=== PATIENT | male | born 1950 | race Caucasian/White ===

== ENCOUNTER 2022-04-30 09:13 | Outpatient (CLI) | payer MEDICARE, BC, SELFPAY | END 2022-04-30 09:14 | disposition home or self-care (01) | LOC: AMB 05-05 21:22 | PROVIDERS: PCP Internal Medicine; Visit Provider Family Medicine | DX: R53.1 Weakness (principal) | CPT/HCPCS: A0425; A0429 ==

== ENCOUNTER 2022-04-30 09:39 | Emergency (ER) | payer MEDICARE, BC, SELFPAY ==
[2022-04-30] VITALS (9 sets, daily range): BP systolic 108–149; BP diastolic 54–82; PULSE 97–103; RESP 16–18; TEMP 38.1–38.7; O2SAT 91–97; BMI 30.3
--- NOTE | 2022-04-30 10:15 | ED.WEAKNESS ---
HPI - Weakness General Time Seen by Provider: 10:15 Date Seen: 04/30/22 Chief complaint: Weakness Stated complaint: Weakness Time Seen by Provider: 04/30/22 09:42 Source: patient, family, RN notes reviewed and old records reviewed Mode of arrival: EMS Limitations: no limitations History of Present Illness HPI Narrative: Hola is a very pleasant 71-year-old gentleman with a history of type 2 diabetes, hyperlipidemia who is brought to the emergency room by EMS for weakness. Patient states that the weakness started last evening and he started experiencing a cough with mucus production. He also describes a sinus headache. He notes that last night he was very cold and had some chills. He has had recent exposure to illness and his who had a dry cough which has now resolved. He notes that he has always tested negative for COVID in the past. He has had 2 vaccinations and 1 booster. He denies chest pain or shortness of breath. This morning he was using a walker which he had left over from a back surgery 2-3 years ago because he was feeling weak. Began walking and then felt his knees giving away. He did a very slow slide to the ground and denies any injury from this event. No loss of consciousness, no recent trauma. Patient does report an episode of diarrhea earlier in the week which resolved with Imodium. Related Data Home Medications Medication Instructions Recorded Confirmed allopurinol 300 mg tablet mg 04/30/22 amitriptyline 25 mg tablet mg 04/30/22 labetalol 100 mg tablet mg 04/30/22 levothyroxine 112 mcg tablet mcg 04/30/22 liraglutide 0.6 mg/0.1 mL (18 mg/3 mg subcut 04/30/22 mL) subcutaneous pen injector (Victoza 3-Umesh) lisinopril 20 tab 04/30/22 mg-hydrochlorothiazide 25 mg tablet metformin 1,000 mg tablet mg 04/30/22 simvastatin 20 mg tablet mg 04/30/22 Previous Rx's Medication Instructions Recorded nirmatrelvir 300 mg (150 mg See Rx Instructions PO .COMPLEX 04/30/22 x2)-ritonavir 100 mg tablet,dose #30 ea pack(EUA) (Paxlovid) Allergies Allergy/AdvReac Type Severity Reaction Status Date / Time gabapentin Allergy Mild Verified 04/30/22 09:52 Review of Systems Status of ROS: Reports: 10 or more systems reviewed and unremarkable except as noted in History and below Const: Reports: fever, chills and fatigue Eyes: Denies: change in vision Cardio: Denies: chest pain, palpitations or shortness of breath with exertion Resp: Reports: cough; Denies: shortness of breath GI: Denies: abdominal pain, nausea or vomiting : Denies: painful urination Musculo: Reports: muscle weakness Integ/Breast: Denies: rash Neuro: Reports: headache Endo: Reports: fatigue PFSH PFS Medical History Diabetes Foot drop Gout Hypertension Thyroid cancer Surgical History History of back surgery Social History Smoking Status: Former smoker What tobacco products do you use: cigarettes Smoking packs per day: 1 Smoking cigarettes per day: 20.0 Years smoked: 10 Smoking pack-years: 10.00 Smoking quit date/years: <= 15 years ago Do you use any of these nicotine containing products: None Second hand tobacco smoke exposure: No How often do you have a drink containing alcohol: monthly or less How many standard drinks containing alcohol do you have on a typical day: 3 or 4 How often do you have six or more drinks on one occasion: Never AUDIT-C Alcohol total score: 2 Non-prescribed substance use: denies use service: Yes Exam Const: Vital Signs, click to edit/add: Vital Signs - 24 hr 04/30/22 09:48 04/30/22 10:00 04/30/22 10:30 Temperature 101.6 F H Pulse Rate [Left P ulse Oximeter] 99 103 H 97 Respiratory Rate 16 18 16 Blood Pressure [Le ft Upper Arm] 123/59 L 124/64 128/59 L Pulse Oximetry 93 94 97 Oxygen Delivery Me thod Room Air Room Air Room Air 04/30/22 11:00 04/30/22 12:26 04/30/22 11:30 Temperature 100.6 F H Pulse Rate [Left P ulse Oximeter] 97 Respiratory Rate 16 16 Blood Pressure [Le ft Upper Arm] 126/57 L 137/74 Pulse Oximetry 97 Oxygen Delivery Me thod Room Air Room Air 04/30/22 12:00 04/30/22 13:00 04/30/22 13:30 Temperature Pulse Rate [Left P ulse Oximeter] 97 99 Respiratory Rate 16 16 16 Blood Pressure [Le ft Upper Arm] 149/82 H 108/54 L 122/58 L Pulse Oximetry 94 91 Oxygen Delivery Me thod Room Air Room Air Room Air Documenting provider has reviewed patient's vital signs: yes Common normals: no apparent distress, oriented x3 and no limitations General appearance: cooperative, comfortable, well kempt and other (Fatigued) HENMT: Common normals: head/scalp atraumatic, external ears normal and external nose normal Head and scalp: atraumatic Face and sinus: other (Slight right eyelid droop) Nose: external nose normal External ear: external ears normal Mouth: oral and palatal mucosa normal Eye: General eye: normal appearance of both eyes Neck & C-Spine: Common normals: full ROM, no lymphadenopathy and supple Resp: Common normals: normal respiratory effort and clear to auscultation bilaterally Effort & inspection: able to speak in complete sentences and symmetric chest movement Auscultation: clear to auscultation bilaterally Cardio: Common normals: regular rate and regular rhythm Rate: regular rate Rhythm: regular rhythm GI: Common normals: soft to palpation and non-tender Palpation: soft Extremity: Common normals: normal to inspection General: no edema Neuro: Common normals: oriented x3 Speech: speech normal Psych: Common normals: mental status grossly normal and thought process normal Appearance: well kempt Thought process: normal thought process Skin: Common normals: no rashes or lesions noted General skin exam: no rashes or lesions noted Course Course Hospital Course: At this time differential diagnosis includes but is not limited to sepsis, urinary tract infection, pneumonia, COVID, stroke. After examination patient as febrile but is mentating normally with symmetrical movement. Suggest laboratory values to include a CBC, comprehensive panel, blood culture, D-dimer, urinalysis, CRP and COVID. Will start patient on normal saline and give Tylenol 1 g p.o. Reevaluation(s) Reevaluation #1: Patient appears to be improved and has been eating without difficulty. He is looking improved. COVID has come back positive. Vital Signs Vital signs: Initial Vital Signs Temperature 101.6 F H 04/30/22 09:48 Temperature Source Temporal Artery Scan 08/22/22 09:48 Pulse Rate 99 04/30/22 09:48 Pulse Rhythm 04/30/22 09:48 Pulse Strength 0+ Absent 04/30/22 09:48 Respiratory Rate 16 04/30/22 09:48 Blood Pressure 123/59 L 04/30/22 09:48 Blood Pressure Mean 80 04/30/22 09:48 Blood Pressure Position Supine 04/30/22 09:48 Pulse Oximetry 93 04/30/22 09:48 Oxygen Delivery Method 04/30/22 09:48 Vital Signs Temperature 101.6 F H 04/30/22 09:48 Pulse Rate 99 04/30/22 09:48 Respiratory Rate 16 04/30/22 09:48 Blood Pressure 123/59 L 04/30/22 09:48 Pulse Oximetry 93 04/30/22 09:48 Oxygen Delivery Method 04/30/22 09:48 Temperature 100.6 F H 04/30/22 12:26 Pulse Rate 99 04/30/22 13:30 Respiratory Rate 16 04/30/22 13:30 Blood Pressure 122/58 L 04/30/22 13:30 Pulse Oximetry 91 04/30/22 13:30 Oxygen Delivery Method 04/30/22 13:30 MDM - Weakness MDM Narrative Medical decision making narrative: 1. COVID-patient is on day 2 of symptoms and is in the window for use of Paxilovid. I used the [facility] medication interaction cashier or checker stock clerk to make sure that patient was eligible. He will have to stop his statin at this time. He has not had it since last evening. Therefore he can start Paxilovid his 1st dose tonight. He will continue that with his last dose being the morning of SaturdayMay 05. He can restart his statin on SaturdayMay 07. He is also advised on prone breathing. No evidence of hypoxia at this time. Recommend also quarantine in for at least 5-7 days. My recommendation is 7 days. Return or seek medical attention for worsening symptoms. Note CRP is 1.7 and creatinine is 1.1 on with a normal white count. Patient will also monitor blood pressure as he is on a beta-migue which may have increased efficacy while on Paxilovid. Push fluids as much as possible. 2. Weakness-patient is improved. Patient received a total of 1.5 L normal saline We will get him up to walk to see if he is safe to go home. Nursing tells me that he was able to ambulate without difficulty and therefore will discharge him. 3. Disposition-home with his . Return for worsening symptoms. Medical Records Attestation: I reviewed the patient's medical records. Lab Data Attestation: I reviewed the patient's lab results. Labs: Lab Results 04/30/22 04/30/22 04/30/22 Range/Units 10:25 10:50 10:50 WBC 4.63 (4.50-11.00) K/uL RBC 3.93 L (4.30-5.90) m/uL Hgb 10.9 L (13.5-17.5) gm/dL Hct 33.0 L (37.0-53.0) % MCV 84 (80-100) fL MCH 28 (26-34) pg MCHC 33 (32-36) gm/dL RDW Coeff of Maximino 15.5 (11.5-15.5) % Plt Count 161 (140-440) K/uL Neut % (Auto) 78.1 H (42.0-72.0) % Lymph % (Auto) 8.4 L (20-44) % Prow[place] % (Auto) 11.4 H (0.0-11.0) % Eos % (Auto) 1.5 (0.0-7.0) % Baso % (Auto) 0.4 (0.0-3.0) % Neut # (Auto) 3.60 (1.7-7.0) K/uL Lymph # (Auto) 0.40 L (0.90-2.90) K/uL [place] # (Auto) 0.50 (0.00-0.90) K/UL Eos # (Auto) 0.07 (0.00-0.50) K/uL Baso # (Auto) 0.02 (0.00-0.30) K/uL Abs Immat Gran (auto) 0.01 (0.00-0.30) K/uL D-Dimer Quant (PE/DVT) (0.00-0.50) ug/ml Sodium 135 (135-149) mmol/L Potassium 4.4 (3.6-5.1) mmol/L Chloride 104 (96-114) mmol/L Carbon Dioxide 19 L (20-32) mmol/L BUN 21 (7-30) mg/dL Creatinine 1.1 (0.5-1.5) mg/dL Estimated Creat Clear 59.81 Estimated GFR 71 ml/min Glucose 107 (60-115) mg/dL Lactate (0.5-1.9) mmol/L Calcium 8.7 (8.4-10.6) mg/dL Magnesium 1.5 (1.5-2.6) mg/dL Total Bilirubin 0.4 (0.1-1.5) mg/dL AST 30 (12-35) U/L ALT 12 (4-50) U/L Alkaline Phosphatase 69 (40-150) U/L C-Reactive Protein 1.7 H (0.5-1.0) mg/dL Total Protein 7.3 (6.0-8.3) g/dL Albumin 4.1 (3.3-5.0) g/dL Urine Color Yellow (Yellow) Urine Appearance Clear (Clear) Urine pH 5.0 (5.0-8.5) Ur Specific Beulah 1.020 (1.000-1.030) Urine Protein 2+ A (Negative) Urine Glucose (UA) Negative (Negative) Urine Ketones Negative (Negative) Urine Blood Negative (Negative) Urine Nitrite Negative (Negative) Urine Bilirubin Negative (Negative) Urine Urobilinogen 0.2 (0.2-1.0) Ur Leukocyte Esterase Negative (Negative) Urine RBC 0-2 (0-2) Urine WBC 0-2 (0-5) Ur Squamous Epith Cells Few (None-Few) Urine Bacteria Few A (None) SARS-CoV-2 (PCR) (Negative) Influenza Type A (PCR) (Negative) Influenza Type B (PCR) (Negative) 04/30/22 04/30/22 04/30/22 Range/Units 10:50 10:50 10:50 WBC (4.50-11.00) K/uL RBC (4.30-5.90) m/uL Hgb (13.5-17.5) gm/dL Hct (37.0-53.0) % MCV (80-100) fL MCH (26-34) pg MCHC (32-36) gm/dL RDW Coeff of Maximino (11.5-15.5) % Plt Count (140-440) K/uL Neut % (Auto) (42.0-72.0) % Lymph % (Auto) (20-44) % Prowers % (Auto) (0.0-11.0) % Eos % (Auto) (0.0-7.0) % Baso % (Auto) (0.0-3.0) % Neut # (Auto) (1.7-7.0) K/uL Lymph # (Auto) (0.90-2.90) K/uL [place] # (Auto) (0.00-0.90) K/UL Eos # (Auto) (0.00-0.50) K/uL Baso # (Auto) (0.00-0.30) K/uL Abs Immat Gran (auto) (0.00-0.30) K/uL D-Dimer Quant (PE/DVT) 0.32 (0.00-0.50) ug/ml Sodium (135-149) mmol/L Potassium (3.6-5.1) mmol/L Chloride (96-114) mmol/L Carbon Dioxide (20-32) mmol/L BUN (7-30) mg/dL Creatinine (0.5-1.5) mg/dL Estimated Creat Clear Estimated GFR ml/min Glucose (60-115) mg/dL Lactate 0.9 (0.5-1.9) mmol/L Calcium (8.4-10.6) mg/dL Magnesium (1.5-2.6) mg/dL Total Bilirubin (0.1-1.5) mg/dL AST (12-35) U/L ALT (4-50) U/L Alkaline Phosphatase (40-150) U/L C-Reactive Protein (0.5-1.0) mg/dL Total Protein (6.0-8.3) g/dL Albumin (3.3-5.0) g/dL Urine Color (Yellow) Urine Appearance (Clear) Urine pH (5.0-8.5) Ur Specific [place] (1.000-1.030) Urine Protein (Negative) Urine Glucose (UA) (Negative) Urine Ketones (Negative) Urine Blood (Negative) Urine Nitrite (Negative) Urine Bilirubin (Negative) Urine Urobilinogen (0.2-1.0) Ur Leukocyte Esterase (Negative) Urine RBC (0-2) Urine WBC (0-5) Ur Squamous Epith Cells (None-Few) Urine Bacteria (None) SARS-CoV-2 (PCR) POSITIVE SARS-CoV-2 A (Negative) Influenza Type A (PCR) Negative PCR FLU A (Negative) Influenza Type B (PCR) Negative PCR FLU B (Negative) Imaging Data Chest x-ray: Attestation: I have reviewed the pertinent imaging results. My impression: Chronic lung markings Radiologist's impression: Chronic bilateral fibrosis/bronchitis. No acute infiltrate Discharge Plan Discharge Clinical Impression: COVID, Weakness Patient Disposition: Home w/ Parent or Adult Condition: Improved Additional Instructions: Start Paxlovid today. You will have just 1 dose this afternoon and then will start taking it twice a day tomorrow morning. Your last dose will be on Saturday. During this time do not take her simvastatin. You may restart that on SaturdayMay 07. Monitor your blood pressure to ensure it does not go too low and push fluids. Tylenol or ibuprofen may be used for discomfort and body aches. Seek medical attention for worsening symptoms. Return for shortness of breath and as needed. Breathing exercises are included in your discharge packet. Prescriptions: New Paxlovid (EUA) 300 mg (150 mg x 2)-100 mg tablets,dose pack See Rx Instructions .ROUTE .COMPLEX Qty: 30 0RF Rx Instructions: take TWO 150 mg tablets of nirmatrelvir with ONE 100 mg tablet of ritonavir twice daily for 5 days No Action amitriptyline 25 mg tablet Label Comments: TAKE 1 TABLET BY MOUTH AT BEDTIME simvastatin 20 mg tablet metformin 1,000 mg tablet lisinopril-hydrochlorothiazide 20-25 mg tablet Label Comments: TAKE 1 TABLET BY MOUTH TWICE DAILY allopurinol 300 mg tablet Label Comments: TAKE 1 TABLET BY MOUTH DAILY labetalol 100 mg tablet levothyroxine 112 mcg tablet Victoza 3-Umesh 0.6 mg/0.1 mL (18 mg/3 mL) pen injector SUBCUT Label Comments: ADMINISTER 1.2 MG UNDER THE SKIN EVERY MORNING Follow Up/Referrals: Callie Smalls MD [Primary Care Provider] - Stand Alone Forms: [employer] Info Instructions
--- NOTE | 2022-04-30 10:23 | CRLHL7_ITS ---
For Patients: As a result of the Century Cures Act, medical imaging exams and procedure reports are released immediately into your electronic medical record. You may view this report before your referring provider. If you have questions, please contact your health care provider. INDICATION: COUGH TECHNIQUE: Chest 1 view COMPARISON: 04/24/2019 FINDINGS: Chronic fibrotic changes within the lungs bilaterally likely related to chronic bronchitis. No focal infiltrate. No CHF or pleural effusion. No pneumothorax. Mediastinum similar. Degenerative changes. IMPRESSION: Chronic bilateral fibrosis/chronic bronchitis. No acute infiltrate. Dictated by Kristian Lubin MD @ 04/30/2022 10:48:57 AM (Electronically Signed)
[2022-04-30 10:33] LABS: Appearance Urine Clear (Clear); Bilirubin Urine Negative (Negative); Blood Urine Negative (Negative); Color Urine Yellow (Yellow); Glucose Urine Negative (Negative); Ketones Urine Negative (Negative); Leukocyte Esterase Urine Negative (Negative); Nitrite Urine Negative (Negative); Protein Urine 2+ (Negative); Urobilinogen Urine 0.2 (0.2-1.0)
[2022-04-30 10:45] LABS: Bacteria Urine Few; RBC Urine 0-2 (0-2); Squamous Epithelial Cell Urine Few (None-Few); WBC Urine 0-2 (0-5)
[2022-04-30] MEDS: 0.9 % SODIUM CHLORIDE 500 ML 500 ML IV (11:00)
[2022-04-30 11:01] LABS: Lactate* 0.9 mmol/L (0.5-1.9)
[2022-04-30 11:02] LABS: Basophils Absolute Auto 0.02 K/uL (0.00-0.30); Basophils Percent Auto 0.4 % (0.0-3.0); Eosinophils Absolute Auto 0.07 K/uL (0.00-0.50); Eosinophils Percent Auto 1.5 % (0.0-7.0); Hemoglobin* 10.9 gm/dL (13.5-17.5); Immature Granulocytes Abs Auto 0.01 K/uL (0.00-0.30); Lymphocytes Percent Auto 8.4 % (20-44); Mean Corpuscular HGB Conc 33 gm/dL (32-36); Mean Corpuscular Hemoglobin 28 pg (26-34); Mean Corpuscular Volume 84 fL (80-100); Monocytes Percent Auto 11.4 % (0.0-11.0); Neutrophils Percent Auto 78.1 % (42.0-72.0); Platelet Count* 161 K/uL (140-440); RDW Coefficient of Variation % 15.5 % (11.5-15.5); Red Blood Count 3.93 m/uL (4.30-5.90); White Blood Count* 4.63 K/uL (4.50-11.00)
[2022-04-30 11:03] LABS: Slide Review Reflex No
[2022-04-30 11:17] LABS: Albumin* 4.1 g/dL (3.3-5.0); Chloride* 104 mmol/L (96-114); Sodium* 135 mmol/L (135-149)
[2022-04-30 11:18] LABS: Potassium* 4.4 mmol/L (3.6-5.1)
[2022-04-30 11:20] LABS: Alanine Aminotransferase* 12 U/L (4-50); Alkaline Phosphatase* 69 U/L (40-150); Aspartate Amino Transferase* 30 U/L (12-35); Bilirubin Total* 0.4 mg/dL (0.1-1.5); Blood Urea Nitrogen* 21 mg/dL (7-30); Carbon Dioxide* 19 mmol/L (20-32); Creatinine* 1.1 mg/dL (0.5-1.5); Est. Creatinine Clearance* 59.81; Estimated Glomerular Filt Rate 71 ml/min; Glucose* 107 mg/dL (60-115); Total Protein* 7.3 g/dL (6.0-8.3)
[2022-04-30 11:21] LABS: Calcium* 8.7 mg/dL (8.4-10.6); Magnesium* 1.5 mg/dL (1.5-2.6)
[2022-04-30 11:23] LABS: C Reactive Protein* 1.7 mg/dL (0.5-1.0)
[2022-04-30 11:40] LABS: PCR FLU A Negative PCR FLU A (Negative); PCR FLU B Negative PCR FLU B (Negative)
[2022-04-30 11:41] LABS: SARS PCR* POSITIVE SARS-CoV-2 (Negative)
[2022-04-30] MEDS: ACETAMINOPHEN 500 MG TABLET 1000 MG PO (11:48)
[2022-04-30 12:20] LABS: D Dimer Quantitative* 0.32 ug/ml (0.00-0.50)
[2022-04-30] MEDS: 0.9 % SODIUM CHLORIDE 1000 ml 1,000 ML IV (12:27)
== END 2022-04-30 14:19 | disposition home or self-care (01) ==
PROVIDERS: Emergency Provider Family Medicine; PCP Internal Medicine
DX: U07.1 COVID-19 (principal); E78.5 Hyperlipidemia, unspecified
CPT/HCPCS: 36415; 71045; 80053; 81001; 83605; 83735; 85025; 85379; 86140; 87040; 87086; 87502; 87635; 96360; 96361; 99284; A9270; J7030; J7120

== ENCOUNTER 2022-10-01 08:50 | Outpatient (CLI) | payer MEDICARE, BC, SELFPAY ==
[2022-10-01 10:25] LABS: Creatinine Urine 28.8 mg/dL
[2022-10-01 10:28] LABS: Microalbumin Creatinine Ratio 620 mg/g (0-30); Microalbumin Urine 18 mg/dL
== END 2022-10-01 08:51 | disposition home or self-care (01) ==
LOC: NFLDREF 09:11
PROVIDERS: PCP Internal Medicine; Visit Provider Internal Medicine
DX: E11.42 Type 2 diabetes mellitus with diabetic polyneuropathy (principal)
CPT/HCPCS: 82043; 82570

== ENCOUNTER 2023-02-07 13:00 | Outpatient (RCR) | payer MEDICARE, BC, SELFPAY ==
--- NOTE | 2022-12-28 11:17 | PT.OPEX ---
Please review and sign the attached physical therapy evaluation completed on 12/28/22. Thank you. PT [place] Outpatient Eval PT [facility] Outpatient Eval Start: 12/27/22 15:31 Freq: Status: Active Protocol: Document 12/28/22 07:21 TLQ (Rec: 12/28/22 09:25 TLQ Laptop) E-signed By Ct Nielson DPT Physical Therapy Outpatient Evaluation Insurance Information Recert Due Date 03/28/23 Insurance Name Medicare B,[employer] Medical Diagnosis Age-related physical debility (R54) Other abnormalities of gait and mobility (R26.89) Treating Diagnosis Muscle weakness (M62.81) Unsteady on feet (R26.81) Abnormal gait (R26.9) Pain in left hip (M25.552) Referring MD Smalls Subjective Subjective Presents today with concerns regarding balance. Fell in October 2022 which resulted in him landing on his left hip , has been having left hip pain since, denies any other falls within the past 6 months . Has not had any imaging taken of his left hip after the fall. Hip pain causes difficulty getting out of bed the morning. Is able to move better once he gets up and moving. Had a laminectomy at L1-L4 5-6 years ago, resulted in drop foot on the right side , wears an AFO to assist with gait. Drop foot makes it difficult to go for walks and navigate stairs. Patient lives in a zero entry, one-level [facility], does not have to navigate stairs. Has a 4WW at home that he occasionally uses at home, takes it on his walks outside. Patient reports he is working with Dr. Smalls to get a referral for a new AFO for his right foot/ankle. Original AFO from [facility]. PMHx: T2DM, cancer, stroke ( 2002, right side affected), laminectomy L1-L4 (5-6 years ago) Pain Comments at worst: -04/18 location: posterior L hip quality: zing, occasionally feels like L leg will give out Current Work Status Retired Preferred Name Denzel Objective Other/Pertinent Objective Strength: Hip: flexion L 4-, R 4 extension 4- B (observed with sit to stand) abduction 4+B adduction 4B internal rotation 4+B external rotation 4+B Knee: flexion 4+ B extension L 4, R 4- TTP: L piriformis, L glute max , L3-4 lumbar paraspinals Pain in left hip when transitioning between supine to sit Balance: 5xSTS - 35 seconds, use of both armrests, poor eccentric control last 50% TUG - 26 seconds, use of 4WW, slowest with transitional movements Tandem - L 3 seconds, R 11 seconds 2MWT (mean 150.4 meters): 71.6 meters, use of 4WW Gait: ambulates with use of 4WW outside of home, increased hip /knee flexion on R to compensate for R foot drop Stairs: Not assessed today due to time constraints Safety: Patient sets walker off to side of chair when transitioning to sit from standing, locks brakes prior to transition Assessment Assessment/Impression Denzel is a 72 year old male who presents to physical therapy today with primary concerns of balance during gait, secondary symptoms include left hip pain as a result of a fall in October 2022. Left hip symptoms present primarily during transitional movements when getting in/out of bed, describes as zinging in his hip. Tender with palpation of left piriformis and glute max muscles, tender at L3-4 as well on the left. Patient has history of lumbar laminectomy which resulted in right foot drop, patient wears a right AFO from [facility] to reduce risk of catching his foot during gait. Patient states he is working with his PCP for referral for a new AFO , patient has lost weight since first receiving his AFO, observed to have excess space between upper mold of the brace and the patients leg resulting in minimal ankle control during gait. PT recommending patient continue forward with obtaining orthotic referral. PT able to tighten strap on AFO, patient reported his leg felt more supported when walking after the proximal strap had been tightened. Patient presented to clinic ambulating without A .D., demonstrated slow nataliya and instability with lateral sway. Patient uses 4WW for longer distances, demonstrated increased nataliya and stability when ambulating with clinic 4WW today. Due to foot drop on right, patient displays increased hip and knee flexion during swing phase to compensate for limited ankle dorsiflexion. Completed 2 minute walk test with use of 4WW, results indicating decreased endurance . Functional strength and balance deficits also apparent with 5x sit to stand and timed up and go assessments, slowest with transitional movements. Lower extremity weakness present with strength testing. Based on today's examination findings, patient would greatly benefit from skilled physical therapy to address strength, endurance, and balance for increased efficiency with mobility and decreased risk of falls with ambulation. Primary Functional Limitations left hip pain, muscle weakness , endurance, falls, supine <> sit, sit<>stand, unstable gait without A.D. Plan of Care Physical Therapy Goals In 6 visits: - Patient will demonstrate functional improvements in LE strength by completing 5xSTS in <25 seconds. - Patient will ambulate >85 meters during 2MWT (MDC 12.2 meters) with LRD to demonstrate improved endurance . In 12 visits: - Gross hip strength will improve to 4+/5 to increase efficiency of transitional movements from sit<>stand. - Patient will complete TUG in <13.5 seconds with LRD to decrease risk of falling while navigating his home environment. - Patient will complete 5xSTS in <15 seconds to demonstrates improvements in functional strength during transitions. - Patient will ambulate >100 meters during 2MWT (MDC 12.2 meters) with LRD for increased endurance for safe mobility during his walks. Treatment Plan/Direct Interventions Gait Training,Manual Therapy, Neuromuscular Re-ed,Self-Care/ Home Management,Therapeutic Activities,Therapeutic Exercises Frequency/Duration 2x/week for 4 weeks followed by 1x/week for 4 weeks Patient Will Be Discharged From Therapy Completion of LTG(s),Skills Plateau,Independent w/HEP, Independently Progressing Evaluation Billing Untimed Code Treatment Minutes 45 Complexity Low Certification Information Initial Certification Date 12/28/22 Ending Certification Date 03/28/23 Provider Signature Shows Agreement With POC & Medical Necessity Physician Signature & Date Requested Please Sign/Date Here Physician Comment/Change : Physician NPI Number #
== END 2023-02-22 15:20 | disposition home or self-care (01) ==
PROVIDERS: PCP Internal Medicine; Visit Provider Internal Medicine
DX: R54 Age-related physical debility (principal); R26.89 Other abnormalities of gait and mobility; Z51.89 Encounter for other specified aftercare
CPT/HCPCS: 97110; 97161; 97530

== ENCOUNTER 2023-04-09 09:47 | Outpatient (REF) | payer MEDICARE, BC, SELFPAY ==
[2023-04-09 10:37] LABS: Creatinine* 1.1 mg/dL (0.5-1.5); Estimated Glomerular Filt Rate 70 ml/min
== END 2023-04-09 09:48 | disposition home or self-care (01) ==
LOC: NPINS 09:47
PROVIDERS: PCP Internal Medicine
DX: E11.40 Type 2 diabetes mellitus with diabetic neuropathy, unspecified (principal)
CPT/HCPCS: 82565

== ENCOUNTER 2023-04-22 10:59 | Emergency (ER) | payer MEDICARE, BC, SELFPAY ==
[2023-04-22] VITALS (21 sets, daily range): BP systolic 104–127; BP diastolic 39–72; PULSE 63–98; RESP 16; TEMP 36.2; O2SAT 88–100; BMI 32.9
--- NOTE | 2023-04-22 11:38 | ED.GENADULT ---
HPI - General Adult General Chief complaint: Abdominal Pain Stated complaint: shortness of breath, abdominal pain Time Seen by Provider: 04/22/23 11:37 History of Present Illness HPI narrative: Patient has had nausea/ vomiting starting on Saturday and now having excruciating abdominal pain and associated shortness of breath and tightness with exertion and breathing. Pain is in center of the abdomen and flaring along the right side. 72-year-old man presenting to the emergency department with complaint of severe sharp cramping abdominal pain as he gestures across the mid abdomen but especially on his right side that began after trying to eat a little oatmeal today. This is now the 3rd day of stomach discomfort nausea and vomiting. He tries to eat and then he gets very low abdominal pain. He is having rather hard stools once daily. With this onset of abdominal pain then it seemed to feel like there was subsequently a band across his low chest and a feeling like he was unable to breathe. All of this has resolved now. Spouse notes how he has had these gurgling abdominal circumstances in the past but usually they last half a day and he is better the next day. Vomited 6 times yesterday. Has not had diarrhea is noted. No fever. Does have a history of diabetic neuropathy. Does not have a history of GERD that he knows of. Has not had any abdominal surgeries. No particular exposures. No cough cold symptoms. Quite thirsty. History of treated thyroid cancer. History of anemia of chronic disease Related Data Home Medications Medication Instructions Recorded Confirmed liraglutide 0.6 mg/0.1 mL (18 mg/3 mg subcut 04/30/22 12/25/22 mL) subcutaneous pen injector (kompanytoza 3-Umehs) acetaminophen 500 mg tablet 1,000 mg PO Q6H PRN 07/30/22 12/25/22 amitriptyline 25 mg tablet 25 mg PO QDAY 07/30/22 12/25/22 aspirin 325 mg tablet 325 mg PO BID 07/30/22 12/25/22 ixekizumab 80 mg/mL subcutaneous 80 mg subcut Q4W 07/30/22 12/25/22 syringe levothyroxine 112 mcg tablet 112 mcg PO QDAY 07/30/22 12/25/22 liraglutide 0.6 mg/0.1 mL (18 mg/3 1.2 mg subcut Q24H 07/30/22 12/25/22 mL) subcutaneous pen injector lisinopril 20 1 tab PO BID 07/30/22 12/25/22 mg-hydrochlorothiazide 25 mg tablet metformin 1,000 mg tablet 1,000 mg PO QDAY 07/30/22 12/25/22 multivitamin (Multiple Vitamins 1 tab PO QAM 07/30/22 12/25/22 tablet) probenecid 500 mg-colchicine 0.5 1 tab PO BID PRN 07/30/22 12/25/22 mg tablet simvastatin 20 mg tablet 20 mg PO QDAY 07/30/22 12/25/22 empagliflozin 10 mg tablet 10 mg PO QAM 10/09/22 12/25/22 (Jardiance) Previous Rx's Medication Instructions Recorded allopurinol 300 mg tablet 300 mg PO QDAY #90 tabs 12/25/22 labetalol 100 mg tablet 150 mg (1.5 x 100 mg) PO BID #135 04/12/23 tabs Allergies Allergy/AdvReac Type Severity Reaction Status Date / Time gabapentin Allergy Mild Verified 04/22/23 12:49 Review of Systems Status of ROS: Reports: 6 or more systems reviewed and unremarkable except as noted in History and below [facility] Medical History History of thyroid cancer ?Z85.850 - Personal history of malignant neoplasm of thyroid (ICD-10) History of depression ?Z86.59 - Personal history of other mental and behavioral disorders (ICD-10) 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) ?Z86.69 - Personal history of other diseases of the nervous system and sense organs (ICD-10) Surgical History History of cataract surgery ?Z98.49 - Cataract extraction status, unspecified eye (ICD-10) Penile adhesions ?N47.5 - Adhesions of prepuce and glans penis (ICD-10) Non-melanoma skin cancer (2017) ?C44.90 - Unspecified malignant neoplasm of skin, unspecified (ICD-10) History of repair of rotator cuff (2001) ?Z98.890 - Other specified postprocedural states (ICD-10) History of lumbar laminectomy (02/14/20) ?Z98.890 - Other specified postprocedural states (ICD-10) History of carpal tunnel release of both wrists ?Z98.890 - Other specified postprocedural states (ICD-10) History of back surgery ?Z98.890 - Other specified postprocedural states (ICD-10) Family History Other Abdominal aortic aneurysm Social History Smoking Status: Former smoker What tobacco products do you use: cigarettes Smoking packs per day: 1 Smoking cigarettes per day: 20.0 Years smoked: 10 Smoking pack-years: 10.00 Smoking quit date/years: <= 15 years ago Do you use any of these nicotine containing products: None Second hand tobacco smoke exposure: No How often do you have a drink containing alcohol: monthly or less How many standard drinks containing alcohol do you have on a typical day: 3 or 4 How often do you have six or more drinks on one occasion: Never AUDIT-C Alcohol total score: 2 Non-prescribed substance use: denies use Little interest or pleasure in doing things: not at all Feeling down, depressed, or hopeless: not at all service: Yes Exam Narrative: Exam Narrative: Pleasant. Seems a little uncomfortable but conversing easily. Facial tremor. Breathing easily. Demonstrates just a little discomfort perhaps with deep inspiratory effort. Neck is supple without lymphadenopathy. Oropharynx is sticky without erythema. Is moving all extremities without difficulty. He is well perfused and without edema in the lower extremities. Lungs appear to be clear. Heart is in a regular rate and rhythm. It is distant. Abdomen is full maybe a little distended. Soft. Tympanitic in the left mid abdomen. He is most sore in the right mid abdomen and below into the right lower quadrant to palpation. No peritoneal signs. But quite tender in that right mid and low side. Const: Vital Signs, click to edit/add: Vital Signs - 24 hr 04/22/23 17:10 Temperature 97.2 F L Pulse Rate [Right Pulse Oximeter] 77 Respiratory Rate 16 Blood Pressure [Ri ght Upper Arm] 110/48 L Pulse Oximetry 96 Oxygen Delivery Me thod Room Air Documenting provider has reviewed patient's vital signs: yes Course Vital Signs Vital signs: Initial Vital Signs Temperature 97.1 F L 04/22/23 11:17 Temperature Source Temporal Artery Scan 04/22/23 11:17 Pulse Rate 73 04/22/23 11:17 Pulse Rhythm Regular 04/22/23 11:17 Respiratory Rate 16 04/22/23 11:17 Blood Pressure 127/72 04/22/23 11:17 Blood Pressure Mean 90 04/22/23 11:17 Blood Pressure Position Sitting 04/22/23 11:17 Pulse Oximetry 100 04/22/23 11:17 Oxygen Delivery Method Room Air 04/22/23 11:17 Vital Signs Temperature 97.1 F L 04/22/23 11:17 Pulse Rate 73 04/22/23 11:17 Respiratory Rate 16 04/22/23 11:17 Blood Pressure 127/72 04/22/23 11:17 Pulse Oximetry 100 04/22/23 11:17 Oxygen Delivery Method Room Air 04/22/23 11:17 Temperature 97.2 F L 04/22/23 17:10 Pulse Rate 77 04/22/23 17:10 Respiratory Rate 16 04/22/23 17:10 Blood Pressure 110/48 L 04/22/23 17:10 Pulse Oximetry 96 04/22/23 17:10 Oxygen Delivery Method Room Air 04/22/23 17:10 Medical Decision Making MDM Narrative Medical decision making narrative: My initial impression is that he is having gastrointestinal colic possibly gas pain possibly exacerbated in the setting of neuropathy. Etiology likely a stomach bug. He does have hard stools though this seems different than constipation. I suppose appendicitis is a possibility but unusual presentation as well. Differential does include vascular disruption, bowel obstruction, biliary disease. I think the chest discomfort was more related to what ever is going on in his abdomen and unlikely to be cardiac. Will evaluate cardiac as well. Chest 1 view COMPARISON: 04/24/2019 FINDINGS: Chronic fibrotic changes within the lungs bilaterally likely related to chronic bronchitis. No focal infiltrate. No CHF or pleural effusion. No pneumothorax. Mediastinum similar. Degenerative changes. IMPRESSION: Chronic bilateral fibrosis/chronic bronchitis. No acute infiltrate. CT examination of the abdomen and pelvis was performed following the uneventful intravenous administration of 109 cc of Isovue 370. Thin section axial images were obtained from the lung bases through the pubic symphysis. Oral contrast was not administered. Please note that all CT scans at this facility use dose modulation, iterative reconstruction, and/or weight-based dosing when appropriate to reduce radiation dose to as low as reasonably achievable. FINDINGS: LUNG BASES: Significant reticular basilar lung abnormality likely due to interstitial fibrosis. Based on the appearance of the lung bases, this appears to be a significant volume of fibrosing interstitial lung disease.Heart size top-normal at the lung bases. Atherosclerotic vascular and valvular calcification LIVER/BILIARY SYSTEM:Liver normal in size. Hepatic steatosis. The gallbladder is distended and located in the patient`s right flank. There is either wall thickening and/or pericholecystic fluid but no visible stones. Suspected acute cholecystitis. Correlate with sonography. ADRENALS: Normal KIDNEYS, URETERS and BLADDER:Kidneys appear normal. The bladder is distended. Moderately enlarged prostate. SPLEEN:Small subcapsular fluid collection associated with the superior and lateral aspect of the spleen. This is best seen on axial image 30 and measures about 12 millimeters in depth and about 4 centimeters in length PANCREAS: Appears normal. RETROPERITONEUM and MESENTERY: Unusual thickening of the 3rd portion of the duodenum and regional lymphadenopathy. This is probably not related to the gallbladder and could be malignant. Appropriate follow up is advised. GASTROINTESTINAL SYSTEM: There is no evidence of diverticulitis, colitis, mechanical obstruction, or appendicitis. The small bowel as visualized appears normal.Abnormal 3rd portion the duodenum as mentioned above. Elsewhere, diverticulosis and fecal retention without acute appearing finding. PELVIS: Distended bladder and abnormal prostate. OSSEOUS STRUCTURES and ABDOMINAL WALL: Degenerative and postsurgical changes. No acute osseous finding. No significant abdominal wall finding OTHER: No free fluid or free air. IMPRESSION: 1. Abnormal appearing gallbladder suspect acute cholecystitis. Correlate with sonography. 2. Abnormal 3rd portion of the duodenum. It is thickened and nodular in appearance with regional lymphadenopathy. This could be inflammatory or malignant. Follow-up evaluation recommended at a clinically appropriate time. 3. Small subcapsular fluid collection associated with the spleen probably not acute. No evidence of splenic laceration. 4. The lung bases as visualized show findings of significant fibrosis or interstitial lung disease appearance 5. Other nonacute appearing findings as above TECHNIQUE: Ultrasound abdomen limited. Sonographic images of the right upper quadrant were obtained using monroe-scale and color Doppler images. COMPARISON: Today`s CT of the abdomen and pelvis. FINDINGS: Liver: Normal in size and echotexture. No masses. No intrahepatic biliary dilatation. Gallbladder: No evidence of gallstones. Adherent hypoechoic debris is noted within a Phrygian cap consistent with gallbladder sludge. Nonspecific mild diffuse gallbladder wall thickening and small volume pericholecystic fluid. Negative sonographic Brooks`s sign. Common bile duct: 5 mm. IMPRESSION: Nonspecific mild diffuse gallbladder wall thickening and small volume pericholecystic fluid. Negative sonographic Brooks`s sign. No gallstones. No biliary ductal dilatation. In the correct clinical setting, imaging findings are consistent with acute acalculous cholecystitis. Clinical correlation and subspecialty surgical consultation are recommended. Did receive IV hydration in the emergency department along with Zofran. Able to tolerate oral intake, at least liquids. Did cause some discomfort in the epigastrium as he gestures but apparently tolerable. I did speak with our general surgeon on-call recommending setting up for upper GI without small-bowel follow-through. Need to evaluate the duodenum. Next step might be endoscopic ultrasound which would be unable to do here. Does not seem to have clinical evidence aside from some findings on the ultrasound, is absent of reproducible pain, with a normal white count, normal transaminases, of acute cholecystitis. If normal upper GI, then possibly an endoscopic ultrasound. Placed order for upper GI for outpatient. See patient discharge plan Lab Data Lab results reviewed: Yes I reviewed the patient's lab results Labs: Lab Results 04/22/23 04/22/23 04/22/23 Range/Units 11:36 11:52 13:10 WBC 9.21 (4.50-11.00) K/uL RBC 4.31 (4.30-5.90) m/uL Hgb 10.3 L (13.5-17.5) gm/dL Hct 34.0 L (37.0-53.0) % MCV 79 L (80-100) fL MCH 24 L (26-34) pg MCHC 30 L (32-36) gm/dL RDW Coeff of Maximino 16.7 H (11.5-15.5) % Plt Count 288 (140-440) K/uL Neut % (Auto) 79.9 H (42.0-72.0) % Lymph % (Auto) 9.7 L (20-44) % [place] % (Auto) 6.8 (0.0-11.0) % Eos % (Auto) 2.8 (0.0-7.0) % Baso % (Auto) 0.7 (0.0-3.0) % Neut # (Auto) 7.40 H (1.7-7.0) K/uL Lymph # (Auto) 0.90 (0.90-2.90) K/uL [place] # (Auto) 0.60 (0.00-0.90) K/UL Eos # (Auto) 0.26 (0.00-0.50) K/uL Baso # (Auto) 0.06 (0.00-0.30) K/uL Abs Immat Gran (auto) 0.01 (0.00-0.30) K/uL Imm/Tot Granulo (auto) 0.1 % Total Bilirubin 0.4 (0.1-1.5) mg/dL Direct Bilirubin 0.1 (0.0-0.5) mg/dL AST 33 (12-35) U/L ALT 19 (4-50) U/L Alkaline Phosphatase 79 (40-150) U/L Troponin I < 0.01 L (0.01-0.04) ng/mL C-Reactive Protein 1.8 H (0.5-1.0) mg/dL NT-Pro-B Natriuret Pep 741 pg/mL Total Protein 7.6 (6.0-8.3) g/dL Albumin 4.3 (3.3-5.0) g/dL Lipase 51 (23-300) U/L Urine Color Yellow (Yellow) Urine Appearance Clear (Clear) Urine pH 5.5 (5.0-8.5) Ur Specific [place] 1.015 (1.000-1.030) Urine Protein 1+ A (Negative) Urine Glucose (UA) 2+ A (Negative) Urine Ketones Negative (Negative) Urine Blood Negative (Negative) Urine Nitrite Negative (Negative) Urine Bilirubin Negative (Negative) Urine Urobilinogen 0.2 (0.2-1.0) Ur Leukocyte Esterase Negative (Negative) Urine RBC 0-2 (0-2) Urine WBC 0-2 (0-5) Ur Squamous Epith Cells Moderate A (None-Few) Urine Bacteria None (None) Fine Granular Casts Few A (None) POC Troponin I 0.00 L (0.01-0.04) ng/ml ECG Data Attestation: I personally reviewed and interpreted this ECG as follows: (Normal sinus rhythm rate of 75. No acute ischemic changes.) Discharge Plan Discharge Clinical Impression: Abdominal pain, Duodenal anomaly Patient Disposition: Home w/ Parent or Adult Condition: Improved Additional Instructions: Focus on hydration. More liquid food than solid. Yes, soups are good place to start. Small frequent amounts. Expect a call from radiology to schedule this upper GI. I would also call tomorrow to your primary care provider to get an appointment to review results and next steps in evaluation. Return for intractable vomiting or uncontrolled pain, fever. Zofran from [employer]. Prescriptions: No Action acetaminophen 500 mg tablet 1,000 mg PO Q6H PRN Rx Instructions: NO MORE THAN 4000 MG/DAY liraglutide 0.6 mg/0.1 mL (18 mg/3 mL) pen injector 1.2 mg subcut Q24H ixekizumab 80 mg/mL syringe 80 mg subcut Q4W aspirin 325 mg tablet 325 mg PO BID multivitamin [Multiple Vitamins] Tablet 1 tab PO QAM probenecid-colchicine 500-0.5 mg tablet 1 tab PO BID PRN Rx Instructions: use as needed for a gout flare allopurinol 300 mg tablet 300 mg PO QDAY Qty: 90 3RF Victoza 3-Umesh 0.6 mg/0.1 mL (18 mg/3 mL) pen injector SUBCUT Patient Comments: ADMINISTER 1.2 MG UNDER THE SKIN EVERY MORNING amitriptyline 25 mg tablet 25 mg PO QDAY Patient Comments: TAKE 1 TABLET BY MOUTH AT BEDTIME levothyroxine 112 mcg tablet 112 mcg PO QDAY Rx Instructions: 1 Tab Sat, , and 2 Tabs other days lisinopril-hydrochlorothiazide 20-25 mg tablet 1 tab PO BID Patient Comments: TAKE 1 TABLET BY MOUTH TWICE DAILY metformin 1,000 mg tablet 1,000 mg PO QDAY simvastatin 20 mg tablet 20 mg PO QDAY Jardiance 10 mg tablet 10 mg PO QAM labetalol 100 mg tablet 150 mg PO BID Qty: 135 0RF Follow Up/Referrals: Callie Smalls MD [Primary Care Provider] - Stand Alone Forms: [employer] Info Instructions
--- NOTE | 2023-04-22 11:52 | CRLHL7_ITS ---
For Patients: As a result of the 21st Century Cures Act, medical imaging exams and procedure reports are released immediately into your electronic medical record. You may view this report before your referring provider. If you have questions, please contact your health care provider. INDICATION: Right lower quadrant pain COMPARISON: None TECHNIQUE: CT examination of the abdomen and pelvis was performed following the uneventful intravenous administration of 109 cc of Isovue 370. Thin section axial images were obtained from the lung bases through the pubic symphysis. Oral contrast was not administered. Please note that all CT scans at this facility use dose modulation, iterative reconstruction, and/or weight-based dosing when appropriate to reduce radiation dose to as low as reasonably achievable. FINDINGS: LUNG BASES: Significant reticular basilar lung abnormality likely due to interstitial fibrosis. Based on the appearance of the lung bases, this appears to be a significant volume of fibrosing interstitial lung disease.Heart size top-normal at the lung bases. Atherosclerotic vascular and valvular calcification LIVER/BILIARY SYSTEM:Liver normal in size. Hepatic steatosis. The gallbladder is distended and located in the patient`s right flank. There is either wall thickening and/or pericholecystic fluid but no visible stones. Suspected acute cholecystitis. Correlate with sonography. ADRENALS: Normal KIDNEYS, URETERS and BLADDER:Kidneys appear normal. The bladder is distended. Moderately enlarged prostate. SPLEEN:Small subcapsular fluid collection associated with the superior and lateral aspect of the spleen. This is best seen on axial image 30 and measures about 12 millimeters in depth and about 4 centimeters in length PANCREAS: Appears normal. RETROPERITONEUM and MESENTERY: Unusual thickening of the 3rd portion of the duodenum and regional lymphadenopathy. This is probably not related to the gallbladder and could be malignant. Appropriate follow up is advised. GASTROINTESTINAL SYSTEM: There is no evidence of diverticulitis, colitis, mechanical obstruction, or appendicitis. The small bowel as visualized appears normal.Abnormal 3rd portion the duodenum as mentioned above. Elsewhere, diverticulosis and fecal retention without acute appearing finding. PELVIS: Distended bladder and abnormal prostate. OSSEOUS STRUCTURES and ABDOMINAL WALL: Degenerative and postsurgical changes. No acute osseous finding. No significant abdominal wall finding OTHER: No free fluid or free air. IMPRESSION: 1. Abnormal appearing gallbladder suspect acute cholecystitis. Correlate with sonography. 2. Abnormal 3rd portion of the duodenum. It is thickened and nodular in appearance with regional lymphadenopathy. This could be inflammatory or malignant. Follow-up evaluation recommended at a clinically appropriate time. 3. Small subcapsular fluid collection associated with the spleen probably not acute. No evidence of splenic laceration. 4. The lung bases as visualized show findings of significant fibrosis or interstitial lung disease appearance 5. Other nonacute appearing findings as above Please note that all CT scans at this facility use dose modulation, iterative reconstruction, and/or weight-based dosing when appropriate to reduce radiation dose to as low as reasonably achievable. Dictated by Omar Anderson MD @ 04/22/2023 2:03:36 PM (Electronically Signed)
[2023-04-22] MEDS: ONDANSETRON 2 MG/ML inj 4 MG IVP (12:06)
[2023-04-22] MEDS: 0.9 % SODIUM CHLORIDE 1000 ml 1,000 ML IV (12:06)
[2023-04-22 12:07] LABS: Basophils Absolute Auto 0.06 K/uL (0.00-0.30); Basophils Percent Auto 0.7 % (0.0-3.0); Eosinophils Absolute Auto 0.26 K/uL (0.00-0.50); Eosinophils Percent Auto 2.8 % (0.0-7.0); Hemoglobin* 10.3 gm/dL (13.5-17.5); Immature Granulocytes Abs Auto 0.01 K/uL (0.00-0.30); Immature Granulocytes Pct Auto 0.1 %; Lymphocytes Percent Auto 9.7 % (20-44); Mean Corpuscular HGB Conc 30 gm/dL (32-36); Mean Corpuscular Hemoglobin 24 pg (26-34); Mean Corpuscular Volume 79 fL (80-100); Monocytes Percent Auto 6.8 % (0.0-11.0); Neutrophils Percent Auto 79.9 % (42.0-72.0); Platelet Count* 288 K/uL (140-440); RDW Coefficient of Variation % 16.7 % (11.5-15.5); Red Blood Count 4.31 m/uL (4.30-5.90); White Blood Count* 9.21 K/uL (4.50-11.00)
[2023-04-22 12:12] LABS: Slide Review Reflex No
[2023-04-22 12:19] LABS: Albumin* 4.3 g/dL (3.3-5.0)
[2023-04-22 12:22] LABS: Bilirubin Direct* 0.1 mg/dL (0.0-0.5); Bilirubin Total* 0.4 mg/dL (0.1-1.5)
[2023-04-22 12:23] LABS: Alanine Aminotransferase* 19 U/L (4-50); Alkaline Phosphatase* 79 U/L (40-150); Aspartate Amino Transferase* 33 U/L (12-35); Lipase* 51 U/L (23-300); Total Protein* 7.6 g/dL (6.0-8.3)
[2023-04-22 12:26] LABS: C Reactive Protein* 1.8 mg/dL (0.5-1.0)
[2023-04-22 12:37] LABS: NT Pro B Type NatriureticPept* 741 pg/mL; Troponin I* < 0.01 ng/mL (0.01-0.04)
[2023-04-22 13:18] LABS: Appearance Urine Clear (Clear); Bilirubin Urine Negative (Negative); Blood Urine Negative (Negative); Color Urine Yellow (Yellow); Glucose Urine 2+ (Negative); Ketones Urine Negative (Negative); Leukocyte Esterase Urine Negative (Negative); Nitrite Urine Negative (Negative); Protein Urine 1+ (Negative); Specific Gravity Urine 1.015 (1.000-1.030); Urobilinogen Urine 0.2 (0.2-1.0); pH Urine 5.5 (5.0-8.5)
[2023-04-22 13:30] LABS: RBC Urine 0-2 (0-2); Squamous Epithelial Cell Urine Moderate (None-Few); WBC Urine 0-2 (0-5)
[2023-04-22 13:31] LABS: Fine Granular Casts Urine Few
--- NOTE | 2023-04-22 14:09 | US_ITS ---
Final Report Patient: TORRI INGRAM Facility:?[facility] Patient ID:?[id number] Site Patient ID:?[id number]. Site :?[id number] Study:?US Abdomen -04/22/2023 2:52:43 PM Ordering Physician:Bogdan Townsend Final Report: INDICATION: Abnormal CT of the abdomen. From the abdominal CT report ?The gallbladder is distended and located in the patient`s right flank. There is either wall thickening and/or pericholecystic fluid but no visible stones. Suspected acute cholecystitis. Correlate with sonography.? Indication for the CT was as follows: Right lower quadrant pain. TECHNIQUE: Ultrasound abdomen limited. Sonographic images of the right upper quadrant were obtained using monroe-scale and color Doppler images. COMPARISON: Today`s CT of the abdomen and pelvis. FINDINGS: Liver: Normal in size and echotexture. No masses. No intrahepatic biliary dilatation. Gallbladder: No evidence of gallstones. Adherent hypoechoic debris is noted within a Phrygian cap consistent with gallbladder sludge. Nonspecific mild diffuse gallbladder wall thickening and small volume pericholecystic fluid. Negative sonographic Brooks`s sign. Common bile duct: 5 mm. IMPRESSION: Nonspecific mild diffuse gallbladder wall thickening and small volume pericholecystic fluid. Negative sonographic Brooks`s sign. No gallstones. No biliary ductal dilatation. In the correct clinical setting, imaging findings are consistent with acute acalculous cholecystitis. Clinical correlation and subspecialty surgical consultation are recommended. Dictated by Sterling Howard MD @ 04/22/2023 3:50:49 PM (Electronic Signature)
== END 2023-04-22 17:11 | disposition home or self-care (01) ==
PROVIDERS: Emergency Provider Family Medicine; PCP Internal Medicine
DX: R10.9 Unspecified abdominal pain (principal); D13.2 Benign neoplasm of duodenum
CPT/HCPCS: 36415; 74177; 76705; 80076; 81001; 83690; 83880; 84484; 85025; 86140; 93005; 96374; 99284; 99285; J2405; J7030; Q9967

== ENCOUNTER 2023-04-23 15:43 | Outpatient (CLI) | payer MEDICARE, BC, SELFPAY | END 2023-04-23 15:44 | disposition home or self-care (01) | LOC: AMB 04-25 11:28 | PROVIDERS: PCP Internal Medicine; Visit Provider Emergency Medicine | DX: R53.1 Weakness (principal); R50.9 Fever, unspecified | CPT/HCPCS: A0425; A0427 ==

== ENCOUNTER 2023-04-23 16:10 | Emergency (ER) | payer MEDICARE, BC, SELFPAY ==
[2023-04-23] VITALS (53 sets, daily range): BP systolic 92–120; BP diastolic 43–60; PULSE 83–123; RESP 18–20; TEMP 36.1–38.7; O2SAT 87–98; BMI 35.5
--- NOTE | 2023-04-23 16:35 | ED.GENADULT ---
HPI - General Adult General Chief complaint: Fever Stated complaint: Fever Time Seen by Provider: 04/23/23 16:15 History of Present Illness HPI narrative: Patient here for large workup yesterday with gallbladder. Now has fever and unable to get up, weakness. IV started by EMS, 500 cc NS bolus given en route 72-year-old man presenting to the emergency department with concern of weakness or rubbery legs. Spouse notes he has had episodes of weakness in the past but today measured a temperature of 102? initially and then improved to 101. He does arrive febrile of 101.6. Was evaluated by myself after 3 days of intermittent abdominal pain exacerbated by oral ingestion as well as hard stool/constipation, in this emergency department yesterday with extensive workup including chest x-ray, CT abdomen pelvis and ultrasound limited of the abdomen. Had a rather large/distended gallbladder that was not particularly inflamed but there was some wall thickening and sludge, nor was he terribly tender in this location. Clinically did not really seem to have cholecystitis. Labs were reassuring. Did have thickening of the duodenum with some regional lymphadenopathy of unclear significance and was able to tolerate liquids discharged home to outpatient follow-up. Constipation continues. Last bowel movement was a couple of days ago. He has not had worsening abdominal pain. He is not nauseated. He is tolerating oral intake. This fever in particular is a new symptom. No respiratory symptoms. Urine is little hesitant he says. Related Data Home Medications Medication Instructions Recorded Confirmed liraglutide 0.6 mg/0.1 mL (18 mg/3 mg subcut 04/30/22 12/25/22 mL) subcutaneous pen injector ([employer]) acetaminophen 500 mg tablet 1,000 mg PO Q6H PRN 07/30/22 12/25/22 amitriptyline 25 mg tablet 25 mg PO QDAY 07/30/22 12/25/22 aspirin 325 mg tablet 325 mg PO BID 07/30/22 12/25/22 ixekizumab 80 mg/mL subcutaneous 80 mg subcut Q4W 07/30/22 12/25/22 syringe levothyroxine 112 mcg tablet 112 mcg PO QDAY 07/30/22 12/25/22 liraglutide 0.6 mg/0.1 mL (18 mg/3 1.2 mg subcut Q24H 07/30/22 12/25/22 mL) subcutaneous pen injector lisinopril 20 1 tab PO BID 07/30/22 12/25/22 mg-hydrochlorothiazide 25 mg tablet metformin 1,000 mg tablet 1,000 mg PO QDAY 07/30/22 12/25/22 multivitamin (Multiple Vitamins 1 tab PO QAM 07/30/22 12/25/22 tablet) probenecid 500 mg-colchicine 0.5 1 tab PO BID PRN 07/30/22 12/25/22 mg tablet simvastatin 20 mg tablet 20 mg PO QDAY 07/30/22 12/25/22 empagliflozin 10 mg tablet 10 mg PO QAM 10/09/22 12/25/22 (Jardiance) Previous Rx's Medication Instructions Recorded allopurinol 300 mg tablet 300 mg PO QDAY #90 tabs 12/25/22 labetalol 100 mg tablet 150 mg (1.5 x 100 mg) PO BID #135 04/12/23 tabs Allergies Allergy/AdvReac Type Severity Reaction Status Date / Time gabapentin Allergy Mild Verified 04/22/23 12:49 Review of Systems Status of ROS: Reports: 6 or more systems reviewed and unremarkable except as noted in History and below [facility] Medical History History of thyroid cancer ?Z85.850 - Personal history of malignant neoplasm of thyroid (ICD-10) History of depression ?Z86.59 - Personal history of other mental and behavioral disorders (ICD-10) 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) ?Z86.69 - Personal history of other diseases of the nervous system and sense organs (ICD-10) Surgical History History of cataract surgery ?Z98.49 - Cataract extraction status, unspecified eye (ICD-10) Penile adhesions ?N47.5 - Adhesions of prepuce and glans penis (ICD-10) Non-melanoma skin cancer (2017) ?C44.90 - Unspecified malignant neoplasm of skin, unspecified (ICD-10) History of repair of rotator cuff (2001) ?Z98.890 - Other specified postprocedural states (ICD-10) History of lumbar laminectomy (10/23/19) ?Z98.890 - Other specified postprocedural states (ICD-10) History of carpal tunnel release of both wrists ?Z98.890 - Other specified postprocedural states (ICD-10) History of back surgery ?Z98.890 - Other specified postprocedural states (ICD-10) Family History Other Abdominal aortic aneurysm Social History Smoking Status: Former smoker What tobacco products do you use: cigarettes Smoking packs per day: 1 Smoking cigarettes per day: 20.0 Years smoked: 10 Smoking pack-years: 10.00 Smoking quit date/years: <= 15 years ago Do you use any of these nicotine containing products: None Second hand tobacco smoke exposure: No How often do you have a drink containing alcohol: monthly or less How many standard drinks containing alcohol do you have on a typical day: 3 or 4 How often do you have six or more drinks on one occasion: Never AUDIT-C Alcohol total score: 2 Non-prescribed substance use: denies use Little interest or pleasure in doing things: not at all Feeling down, depressed, or hopeless: not at all service: Yes Exam Narrative: Exam Narrative: Pleasant. NAD. Similar oral tremor as yesterday. Breathing easily. Lungs appear to be clear. Heart is in an elevated rate but regular rhythm. Skin is generally quite warm. Is well perfused peripherally without peripheral edema. Abdomen is soft with bowel sounds present. There there is a little tension to palpation generally throughout the abdomen but does not appear to be otherwise in pain. I perceived maybe a little more discomfort in the epigastrium. No masses. Oropharynx is moist. Const: Vital Signs, click to edit/add: Vital Signs - 24 hr 04/23/23 16:28 04/23/23 17:50 04/23/23 18:02 Temperature 101.6 F H 98.9 F Pulse Rate 95 Pulse Rate [Right Pulse Oximeter] 94 Respiratory Rate 18 Blood Pressure 112/43 L Blood Pressure [Ri ght Upper Arm] 120/54 L Pulse Oximetry 93 91 Oxygen Delivery Me thod Room Air 04/23/23 18:03 04/23/23 18:15 04/23/23 18:17 Temperature Pulse Rate 92 111 H 101 H Pulse Rate [Right Pulse Oximeter] Respiratory Rate Blood Pressure 106/56 L Blood Pressure [Ri ght Upper Arm] Pulse Oximetry 93 89 96 Oxygen Delivery Me thod 04/23/23 18:18 04/23/23 18:31 04/23/23 18:32 Temperature Pulse Rate 101 H 96 96 Pulse Rate [Right Pulse Oximeter] Respiratory Rate Blood Pressure 95/45 L Blood Pressure [Ri ght Upper Arm] Pulse Oximetry 95 89 91 Oxygen Delivery Me thod 04/23/23 18:35 04/23/23 18:36 04/23/23 18:37 Temperature 100.1 F H Pulse Rate 94 94 Pulse Rate [Right Pulse Oximeter] Respiratory Rate Blood Pressure 101/56 L Blood Pressure [Ri ght Upper Arm] Pulse Oximetry 95 91 Oxygen Delivery Me thod 04/23/23 18:38 04/23/23 18:45 04/23/23 18:46 Temperature 100.1 F H Pulse Rate 95 93 Pulse Rate [Right Pulse Oximeter] Respiratory Rate 20 Blood Pressure 108/59 L Blood Pressure [Ri ght Upper Arm] Pulse Oximetry 91 93 94 Oxygen Delivery Me thod Room Air 04/23/23 18:47 04/23/23 19:00 04/23/23 19:02 Temperature Pulse Rate 93 86 96 Pulse Rate [Right Pulse Oximeter] Respiratory Rate Blood Pressure 102/54 L Blood Pressure [Ri ght Upper Arm] Pulse Oximetry 93 89 91 Oxygen Delivery Me thod 04/23/23 19:19 04/23/23 19:20 04/23/23 19:30 Temperature Pulse Rate 123 H 100 90 Pulse Rate [Right Pulse Oximeter] Respiratory Rate Blood Pressure 108/60 Blood Pressure [Ri ght Upper Arm] Pulse Oximetry 90 96 98 Oxygen Delivery Me thod 04/23/23 19:45 04/23/23 19:46 04/23/23 19:47 Temperature Pulse Rate 93 96 92 Pulse Rate [Right Pulse Oximeter] Respiratory Rate Blood Pressure 99/55 L Blood Pressure [Ri ght Upper Arm] Pulse Oximetry 95 94 97 Oxygen Delivery Me thod 04/23/23 20:00 04/23/23 20:01 04/23/23 20:15 Temperature Pulse Rate 94 87 88 Pulse Rate [Right Pulse Oximeter] Respiratory Rate Blood Pressure 94/54 L Blood Pressure [Ri ght Upper Arm] Pulse Oximetry 91 93 94 Oxygen Delivery Me thod 04/23/23 20:16 04/23/23 20:24 04/23/23 20:24 Temperature 98.3 F 98.3 F Pulse Rate 89 Pulse Rate [Right Pulse Oximeter] Respiratory Rate Blood Pressure 98/55 L Blood Pressure [Ri ght Upper Arm] Pulse Oximetry 93 Oxygen Delivery Me thod 04/23/23 20:30 04/23/23 20:31 04/23/23 20:45 Temperature Pulse Rate 90 90 85 Pulse Rate [Right Pulse Oximeter] Respiratory Rate Blood Pressure 97/49 L Blood Pressure [Ri ght Upper Arm] Pulse Oximetry 94 91 91 Oxygen Delivery Me thod 04/23/23 20:46 04/23/23 20:47 04/23/23 21:00 Temperature Pulse Rate 90 87 92 Pulse Rate [Right Pulse Oximeter] Respiratory Rate Blood Pressure 92/50 L Blood Pressure [Ri ght Upper Arm] Pulse Oximetry 90 94 87 L Oxygen Delivery Me thod 04/23/23 21:02 04/23/23 21:03 04/23/23 21:15 Temperature Pulse Rate 90 91 86 Pulse Rate [Right Pulse Oximeter] Respiratory Rate Blood Pressure 98/54 L Blood Pressure [Ri ght Upper Arm] Pulse Oximetry 96 88 93 Oxygen Delivery Me thod 04/23/23 21:16 04/23/23 21:17 04/23/23 21:30 Temperature Pulse Rate 89 87 86 Pulse Rate [Right Pulse Oximeter] Respiratory Rate Blood Pressure 97/55 L Blood Pressure [Ri ght Upper Arm] Pulse Oximetry 95 95 91 Oxygen Delivery Me thod 04/23/23 21:31 04/23/23 21:32 04/23/23 21:45 Temperature Pulse Rate 87 90 88 Pulse Rate [Right Pulse Oximeter] Respiratory Rate Blood Pressure 97/49 L Blood Pressure [Ri ght Upper Arm] Pulse Oximetry 97 91 88 Oxygen Delivery Me thod 04/23/23 21:46 04/23/23 22:13 04/23/23 22:14 Temperature Pulse Rate 88 97 89 Pulse Rate [Right Pulse Oximeter] Respiratory Rate Blood Pressure 95/55 L 97/47 L Blood Pressure [Ri ght Upper Arm] Pulse Oximetry 88 96 96 Oxygen Delivery Me thod 04/23/23 22:15 04/23/23 22:16 04/23/23 22:17 Temperature Pulse Rate 88 90 86 Pulse Rate [Right Pulse Oximeter] Respiratory Rate Blood Pressure 101/52 L Blood Pressure [Ri ght Upper Arm] Pulse Oximetry 97 96 95 Oxygen Delivery Me thod Documenting provider has reviewed patient's vital signs: yes Course Vital Signs Vital signs: Initial Vital Signs Temperature 101.6 F H 04/23/23 16:28 Temperature Source Temporal Artery Scan 04/23/23 16:28 Pulse Rate 94 04/23/23 16:28 Respiratory Rate 18 04/23/23 16:28 Blood Pressure 120/54 L 04/23/23 16:28 Blood Pressure Mean 76 04/23/23 16:28 Blood Pressure Position Sitting 04/23/23 16:28 Pulse Oximetry 93 04/23/23 16:28 Oxygen Delivery Method Room Air 04/23/23 16:28 Vital Signs Temperature 101.6 F H 04/23/23 16:28 Pulse Rate 94 04/23/23 16:28 Respiratory Rate 18 04/23/23 16:28 Blood Pressure 120/54 L 04/23/23 16:28 Pulse Oximetry 93 04/23/23 16:28 Oxygen Delivery Method Room Air 04/23/23 16:28 Temperature 98.3 F 04/23/23 20:24 Pulse Rate 86 04/23/23 22:17 Respiratory Rate 20 04/23/23 18:38 Blood Pressure 101/52 L 04/23/23 22:16 Pulse Oximetry 95 04/23/23 22:17 Oxygen Delivery Method Room Air 04/23/23 18:38 Medical Decision Making MDM Narrative Medical decision making narrative: Fevers are a new development. Otherwise same to improved from departure yesterday. Certainly concern of fever in the setting of cholecystitis, possible sepsis. No pulmonary symptoms. Possibly some urinary tract etiology. Will look for infectious etiology. Will hydrate with IV fluids. Recheck liver labs. Monitor vitals closely. Some delay in labs. At this point without elevated white count. Hemoglobin has drifted from 10.3-8.6. Gave ibuprofen for fever. Blood pressures maybe little soft, sustained MAP. No longer tachycardic and less febrile. I did return to do stool guaiac. This was negative. At this time also examined abdomen again. He is notably tender in the right upper quadrant now contrary to how he was on initial presentation. Transaminases are resulted and now elevated with AST of 114 for ALT of 90 and alkaline phosphatase of 224. Lactate is normal, CRP of 9. Creatinine increased from 1.1 to 1.5 Warehouse [employer] arrived to do limited ultrasound. Notes that gallbladder wall looks less thick at 4 mm today but he is definitely now more tender with positive Brooks sign. Did discuss with our general surgeon. Will likely need to be admitted for fever and weakness at a minimum in with that in mind recommending placement elsewhere if possible where next steps in imaging could be accomplished given what was imaged on CT yesterday. Meets criteria for SIRS, not quite sepsis. I am concerned about evolving symptoms here. Have ordered another L of normal saline and will be initiating antibiotics for potential sepsis. Zosyn and vancomycin. Pressures where they were in the 1 teens are mid 90s over mid 50s. Not complaining of increased pain. Over-read of ultrasound is available INDICATION: Fever, elevated liver function tests, known gallbladder abnormality from exam 1 day ago. TECHNIQUE: Limited, focused right upper quadrant ultrasound. COMPARISON: One day ago. FINDINGS: Liver is unremarkable. No focal mass. Gallbladder demonstrates intraluminal sludge, but slightly less wall thickening, wall remains thickened measuring 0.4 cm. Yesterday, gallbladder wall measures 0.7 cm thickness. Positive sonographic Brooks`s sign is present. Common bile duct is not seen/demonstrated. Mr. Lau did manage a bowel movement here. Have been calling around for beds. Very pleased to receive acceptance at [facility]. Anticipating ambulance transport. Lab Data Lab results reviewed: Yes I reviewed the patient's lab results Labs: Lab Results 04/23/23 04/23/23 04/23/23 Range/Units 17:50 17:55 20:15 WBC 4.71 (4.50-11.00) K/uL RBC 3.57 L (4.30-5.90) m/uL Hgb 8.6 L (13.5-17.5) gm/dL Hct 28.0 L (37.0-53.0) % MCV 78 L (80-100) fL MCH 24 L (26-34) pg MCHC 31 L (32-36) gm/dL RDW Coeff of Maximino 16.9 H (11.5-15.5) % Plt Count 183 (140-440) K/uL Neut % (Auto) 79.6 H (42.0-72.0) % Lymph % (Auto) 8.7 L (20-44) % [place] % (Auto) 9.6 (0.0-11.0) % Eos % (Auto) 1.1 (0.0-7.0) % Baso % (Auto) 0.8 (0.0-3.0) % Neut # (Auto) 3.70 (1.7-7.0) K/uL Lymph # (Auto) 0.40 L (0.90-2.90) K/uL [place] # (Auto) 0.50 (0.00-0.90) K/UL Eos # (Auto) 0.05 (0.00-0.50) K/uL Baso # (Auto) 0.04 (0.00-0.30) K/uL Abs Immat Gran (auto) 0.01 (0.00-0.30) K/uL Imm/Tot Granulo (auto) 0.2 % VBG pH 7.420 (7.32-7.43) VBG pCO2 37 L (40-50) mmHG VBG pO2 56.8 H (25-47) mmHG VBG HCO3 24 (21-28) mmol/L Sodium 136 (135-149) mmol/L Potassium 3.7 (3.6-5.1) mmol/L Chloride 102 (96-114) mmol/L Carbon Dioxide 23 (20-32) mmol/L BUN 32 H (7-30) mg/dL Creatinine 1.5 (0.5-1.5) mg/dL Estimated Creat Clear 38.99 Estimated GFR 49 ml/min Glucose 117 H (60-115) mg/dL Lactate 0.9 0.8 (0.5-1.9) mmol/L Calcium 8.4 (8.4-10.6) mg/dL Total Bilirubin 0.5 (0.1-1.5) mg/dL Direct Bilirubin 0.1 (0.0-0.5) mg/dL AST 114 H (12-35) U/L ALT 90 H (4-50) U/L Alkaline Phosphatase 224 H (40-150) U/L C-Reactive Protein 9.0 H (0.5-1.0) mg/dL Total Protein 6.3 (6.0-8.3) g/dL Albumin 3.5 (3.3-5.0) g/dL Lipase 26 (23-300) U/L Urine Color Yellow (Yellow) Urine Appearance Clear (Clear) Urine pH 5.0 (5.0-8.5) Ur Specific [place] 1.015 (1.000-1.030) Urine Protein 1+ A (Negative) Urine Glucose (UA) 3+ A (Negative) Urine Ketones Trace A (Negative) Urine Blood Trace-intact A (Negative) Urine Nitrite Negative (Negative) Urine Bilirubin Negative (Negative) Urine Urobilinogen 0.2 (0.2-1.0) Ur Leukocyte Esterase Negative (Negative) Urine RBC 2-5 A (0-2) Urine WBC 2-5 (0-5) Ur Squamous Epith Cells None (None-Few) Urine Bacteria None (None) SARS-CoV-2 (PCR) Negative SARS-CoV-2 (Negative) Influenza Type A (PCR) Negative PCR FLU A (Negative) Influenza Type B (PCR) Negative PCR FLU B (Negative) Critical Care Time Critical Care Time Total Critical Care Time in Minutes: 60 Discharge Plan Discharge Clinical Impression: SIRS (systemic inflammatory response syndrome), Anomaly of duodenum, Acute cholecystitis Patient Disposition: [facility] Discharge Location: [facility] [place] Condition: Guarded
[2023-04-23] MEDS: 0.9 % SODIUM CHLORIDE 1000 ml 1,000 ML IV ×2 (17:45→20:03)
[2023-04-23] MEDS: IBUPROFEN 200 MG TABLET 600 MG PO (17:46)
--- NOTE | 2023-04-23 17:56 | PC.NURSE ---
labs drawn and sent by this fiction and nonfiction writer prose
[2023-04-23 18:05] LABS: HCO3 VBG 24 mmol/L (21-28); Lactate* 0.9 mmol/L (0.5-1.9); PCO2 VBG 37 mmHG (40-50); PO2 VBG 56.8 mmHG (25-47)
[2023-04-23 18:05] LABS: Appearance Urine Clear (Clear); Bilirubin Urine Negative (Negative); Blood Urine Trace-intact (Negative); Color Urine Yellow (Yellow); Glucose Urine 3+ (Negative); Ketones Urine Trace (Negative); Leukocyte Esterase Urine Negative (Negative); Nitrite Urine Negative (Negative); Protein Urine 1+ (Negative); Specific Gravity Urine 1.015 (1.000-1.030); Urobilinogen Urine 0.2 (0.2-1.0)
[2023-04-23 18:10] LABS: Basophils Absolute Auto 0.04 K/uL (0.00-0.30); Basophils Percent Auto 0.8 % (0.0-3.0); Eosinophils Absolute Auto 0.05 K/uL (0.00-0.50); Eosinophils Percent Auto 1.1 % (0.0-7.0); Hemoglobin* 8.6 gm/dL (13.5-17.5); Immature Granulocytes Abs Auto 0.01 K/uL (0.00-0.30); Immature Granulocytes Pct Auto 0.2 %; Lymphocytes Percent Auto 8.7 % (20-44); Mean Corpuscular HGB Conc 31 gm/dL (32-36); Mean Corpuscular Hemoglobin 24 pg (26-34); Mean Corpuscular Volume 78 fL (80-100); Monocytes Percent Auto 9.6 % (0.0-11.0); Neutrophils Percent Auto 79.6 % (42.0-72.0); Platelet Count* 183 K/uL (140-440); RDW Coefficient of Variation % 16.9 % (11.5-15.5); Red Blood Count 3.57 m/uL (4.30-5.90); White Blood Count* 4.71 K/uL (4.50-11.00)
[2023-04-23 18:13] LABS: Slide Review Reflex No
[2023-04-23 18:46] LABS: PCR FLU A Negative PCR FLU A (Negative); PCR FLU B Negative PCR FLU B (Negative)
[2023-04-23 18:46] LABS: Chloride* 102 mmol/L (96-114)
[2023-04-23 18:47] LABS: Albumin* 3.5 g/dL (3.3-5.0); Potassium* 3.7 mmol/L (3.6-5.1); Sodium* 136 mmol/L (135-149)
[2023-04-23 18:49] LABS: SARS PCR* Negative SARS-CoV-2 (Negative)
[2023-04-23 18:49] LABS: Creatinine* 1.5 mg/dL (0.5-1.5); Est. Creatinine Clearance* 38.99; Estimated Glomerular Filt Rate 49 ml/min
[2023-04-23 18:50] LABS: Alanine Aminotransferase* 90 U/L (4-50); Alkaline Phosphatase* 224 U/L (40-150); Aspartate Amino Transferase* 114 U/L (12-35); Bilirubin Direct* 0.1 mg/dL (0.0-0.5); Bilirubin Total* 0.5 mg/dL (0.1-1.5); Blood Urea Nitrogen* 32 mg/dL (7-30); Carbon Dioxide* 23 mmol/L (20-32); Glucose* 117 mg/dL (60-115); Lipase* 26 U/L (23-300); Total Protein* 6.3 g/dL (6.0-8.3)
[2023-04-23 18:51] LABS: Calcium* 8.4 mg/dL (8.4-10.6)
--- NOTE | 2023-04-23 18:56 | CRLHL7_ITS ---
For Patients: As a result of the Century Cures Act, medical imaging exams and procedure reports are released immediately into your electronic medical record. You may view this report before your referring provider. If you have questions, please contact your health care provider. HISTORY: Fever and mild hypoxia. Mild cough. COMPARISON: Chest portable from 04/30/2022. FINDINGS: A portable erect AP view of the chest was obtained at 19 07 hours. There is new mild congestive failure with mild engorgement of the pulmonary vessels and mild interstitial pulmonary edema. There is no sign of pleural effusion. The heart remains normal in size. The mediastinum is normal in appearance. The osseous structures are normal in appearance for the patient`s age. IMPRESSION: New mild congestive failure. Dictated by Lucas Mcelroy MD @ 04/23/2023 8:09:18 PM (Electronically Signed)
--- NOTE | 2023-04-23 19:05 | CRLHL7_ITS ---
For Patients: As a result of the Century Cures Act, medical imaging exams and procedure reports are released immediately into your electronic medical record. You may view this report before your referring provider. If you have questions, please contact your health care provider. INDICATION: Fever, elevated liver function tests, known gallbladder abnormality from exam 1 day ago. TECHNIQUE: Limited, focused right upper quadrant ultrasound. COMPARISON: One day ago. FINDINGS: Liver is unremarkable. No focal mass. Gallbladder demonstrates intraluminal sludge, but slightly less wall thickening, wall remains thickened measuring 0.4 cm. Yesterday, gallbladder wall measures 0.7 cm thickness. Positive sonographic Brooks`s sign is present. Common bile duct is not seen/demonstrated. Dictated by Denzel Unger MD @ 04/23/2023 8:42:05 PM (Electronically Signed)
[2023-04-23] MEDS: PIPERACILLIN/TAZOBACTAM 3.375 GM in 0.9 % SODIUM CHLORIDE Mini-bag 100 ML IVPB (19:58)
[2023-04-23 21:01] LABS: Lactate* 0.8 mmol/L (0.5-1.9)
--- NOTE | 2023-04-23 22:16 | ED.NURSE ---
Pt assisted to stand and pivot to sit on commode. Pt appears more sturdy on his feet at this time. Pt did have a BM of approx 5 small pieces of stool. updated about pt BM.
--- NOTE | 2023-04-23 22:33 | ED.NURSE ---
Report called to [facility] ED RN.
== END 2023-04-23 23:17 | disposition short-term general hospital (02) ==
PROVIDERS: Emergency Provider Family Medicine; PCP Internal Medicine
DX: K81.0 Acute cholecystitis (principal); R65.10 Systemic inflammatory response syndrome (SIRS) of non-infectious origin without acute organ dysfunction
CPT/HCPCS: 36415; 71045; 76705; 80048; 80076; 81001; 82803; 83605; 83690; 85025; 86140; 87040; 87631; 99284; 99291; A9270; J2543; J3370; J7030; J7120

== ENCOUNTER 2023-04-23 22:59 | Outpatient (CLI) | payer MEDICARE, BC, SELFPAY | END 2023-04-23 23:00 | disposition home or self-care (01) | LOC: AMB 04-25 11:39 | PROVIDERS: PCP Internal Medicine; Visit Provider Emergency Medicine Emergency Medical Services | DX: R53.1 Weakness (principal); R50.9 Fever, unspecified | CPT/HCPCS: A0425; A0427; A0434 ==

== ENCOUNTER 2023-05-27 10:03 | Outpatient (REF) | payer MEDICARE, BC, SELFPAY ==
[2023-05-27 10:38] LABS: Basophils Absolute Auto 0.01 K/uL (0.00-0.30); Basophils Percent Auto 0.1 % (0.0-3.0); Eosinophils Absolute Auto 0.09 K/uL (0.00-0.50); Eosinophils Percent Auto 1.1 % (0.0-7.0); Hematocrit 34.4 % (37.0-53.0); Hemoglobin* 10.5 gm/dL (13.5-17.5); Immature Granulocytes Abs Auto 1.45 K/uL (0.00-0.30); Immature Granulocytes Pct Auto 17.6 %; Lymphocytes Percent Auto 4.3 % (20-44); Mean Corpuscular HGB Conc 31 gm/dL (32-36); Mean Corpuscular Hemoglobin 24 pg (26-34); Mean Corpuscular Volume 80 fL (80-100); Monocytes Percent Auto 1.5 % (0.0-11.0); Neutrophils Percent Auto 75.4 % (42.0-72.0); Platelet Count* 218 K/uL (140-440); RDW Coefficient of Variation % 20.1 % (11.5-15.5); Red Blood Count 4.31 m/uL (4.30-5.90); White Blood Count* 8.23 K/uL (4.50-11.00)
[2023-05-27 11:23] LABS: Slide Review Reflex No
== END 2023-05-27 10:04 | disposition home or self-care (01) ==
LOC: NPINS 10:03
PROVIDERS: PCP Internal Medicine
DX: C85.90 Non-Hodgkin lymphoma, unspecified, unspecified site (principal)
CPT/HCPCS: 85025

== ENCOUNTER 2023-06-03 11:14 | Outpatient (REF) | payer MEDICARE, BC, SELFPAY ==
[2023-06-03 11:45] LABS: Basophils Absolute Auto 0.03 K/uL (0.00-0.30); Basophils Percent Auto 0.5 % (0.0-3.0); Eosinophils Absolute Auto 0.36 K/uL (0.00-0.50); Eosinophils Percent Auto 6.2 % (0.0-7.0); Hematocrit 29.6 % (37.0-53.0); Hemoglobin* 9.1 gm/dL (13.5-17.5); Immature Granulocytes Abs Auto 0.06 K/uL (0.00-0.30); Lymphocytes Percent Auto 6.8 % (20-44); Mean Corpuscular HGB Conc 31 gm/dL (32-36); Mean Corpuscular Hemoglobin 25 pg (26-34); Mean Corpuscular Volume 81 fL (80-100); Neutrophils Percent Auto 76.5 % (42.0-72.0); Platelet Count* 115 K/uL (140-440); RDW Coefficient of Variation % 20.8 % (11.5-15.5); Red Blood Count 3.67 m/uL (4.30-5.90); White Blood Count* 5.77 K/uL (4.50-11.00)
[2023-06-03 14:23] LABS: Slide Review Reflex Yes
[2023-06-03 14:24] LABS: Slide Review Acceptable Review (Acceptable)
== END 2023-06-03 11:15 | disposition home or self-care (01) ==
LOC: NFLDREF 11:14
PROVIDERS: PCP Internal Medicine
DX: C85.90 Non-Hodgkin lymphoma, unspecified, unspecified site (principal)
CPT/HCPCS: 85025

== ENCOUNTER 2023-06-19 16:19 | Outpatient (REF) | payer MEDICARE, BC, SELFPAY ==
[2023-06-19 16:44] LABS: Basophils Percent Auto 1.8 % (0.0-3.0); Eosinophils Percent Auto 11.6 % (0.0-7.0); Hematocrit 28.2 % (37.0-53.0); Hemoglobin* 8.7 gm/dL (13.5-17.5); Immature Granulocytes Pct Auto 0.9 %; Lymphocytes Percent Auto 13.4 % (20-44); Mean Corpuscular HGB Conc 31 gm/dL (32-36); Mean Corpuscular Hemoglobin 25 pg (26-34); Mean Corpuscular Volume 81 fL (80-100); Monocytes Percent Auto 17.9 % (0.0-11.0); Neutrophils Percent Auto 54.4 % (42.0-72.0); Platelet Count* 221 K/uL (140-440); RDW Coefficient of Variation % 21.9 % (11.5-15.5); Red Blood Count 3.47 m/uL (4.30-5.90)
[2023-06-19 18:47] LABS: Slide Review Reflex Yes; White Blood Count* 1.12 K/uL (4.50-11.00)
[2023-06-19 18:48] LABS: Slide Review Acceptable Review (Acceptable)
== END 2023-06-19 16:20 | disposition home or self-care (01) ==
LOC: NPINS 16:19
PROVIDERS: PCP Internal Medicine
DX: C85.90 Non-Hodgkin lymphoma, unspecified, unspecified site (principal); Z79.899 Other long term (current) drug therapy
CPT/HCPCS: 85025

== ENCOUNTER 2023-07-17 18:25 | Outpatient (CLI) | payer MEDICARE, BC, SELFPAY | END 2023-07-17 18:26 | disposition home or self-care (01) | LOC: AMB 07-18 07:16 | PROVIDERS: PCP Internal Medicine; Visit Provider Emergency Medicine | DX: R10.9 Unspecified abdominal pain (principal) | CPT/HCPCS: A0425; A0427 ==

== ENCOUNTER 2023-07-17 19:06 | Emergency (ER) | payer MEDICARE, BC, SELFPAY ==
[2023-07-17] VITALS (9 sets, daily range): BP systolic 114–127; BP diastolic 54–84; PULSE 57–78; RESP 16; TEMP 36.1; O2SAT 88–100
--- NOTE | 2023-07-17 19:20 | ED_ITS ---
HPI - General Adult General Chief complaint: Abdominal Pain <Kristian Cuellar MD - Last Filed: 07/18/23 18:27> Stated complaint: stomach pain <Kristian Cuellar MD - Last Filed: 07/18/23 18:27> Time Seen by Provider: 07/17/23 19:11 <Kristian Cuellar MD - Last Filed: 07/18/23 18:27> History of Present Illness HPI narrative: pt developed RUQ abd pain around 5pm, rated 8/10. Pain does not radiate to back . Hx of cancer , seen at [place]. Last chemo treatment was Jul 02. Pt has had diarrhea for 3 day. EMS admin Zofran, 4mg and Fentanyl, 50mcg. Pain decreased to 2/ 10. 72-year-old man presenting to the emergency department via EMS accompanied by significant other with complaint of severe pain in the right upper quadrant of the abdomen. Began spontaneously around 2-1/2 hours had 5:00 p.m. prior to arrival in this emergency department. Apparently localized. ?just pain. Was treated by EMS with Zofran had fat little. 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 Last hospitalized May 11 and discharged July 23 from [facility]. Was unable to tolerate tube feeding. Has continued with chemotherapy every 3 weeks and apparently nausea and diarrhea can fluctuate between treatments. Can swing towards constipation as well. He does expect some abdominal discomfort but this was much worse than usual. Has had more frequent diarrhea over the last 3 days. No hematochezia described. Per discharge paperwork was recommended to present to the emergency department immediately in this circumstance of pain due to significance of mass and concern of potential perforation. Has not had any fever but says he is always feeling chilled. Wrapping with blankets usually takes care of that. Pain is now starting to escalate again. Due for port placement after this weekend. <Kristian Cuellar MD - Last Filed: 07/18/23 18:27> Related Data Home medications: Home Medications Medication Instructions Recorded Confirmed acetaminophen 500 mg tablet 1,000 mg PO Q6H PRN 07/30/22 08/28/23 amitriptyline 25 mg tablet 25 mg PO QDAY 07/30/22 08/28/23 lisinopril 20 1 tab PO BID 07/30/22 08/28/23 mg-hydrochlorothiazide 25 mg tablet metformin 1,000 mg tablet 1,000 mg PO QDAY 07/30/22 08/28/23 probenecid 500 mg-colchicine 0.5 1 tab PO BID PRN 07/30/22 08/28/23 mg tablet simvastatin 20 mg tablet 20 mg PO QDAY 07/30/22 08/28/23 empagliflozin 10 mg tablet 10 mg PO QAM 10/09/22 08/28/23 (Jardiance) levothyroxine 112 mcg tablet 112 - 224 mcg PO .UD 04/29/23 08/28/23 aspirin 81 mg tablet,delayed 81 mg PO QDAY 08/28/23 08/28/23 release vit no.[id number] PO .QD 08/28/23 08/28/23 [ Plus Vitamin-Mineral] Previous Rx's Medication Instructions Recorded allopurinol 300 mg tablet 300 mg PO QDAY #90 tabs 12/25/22 labetalol 100 mg tablet 150 mg (1.5 x 100 mg) PO BID #135 06/05/23 tabs potassium bicarbonate-citric acid 20 meq PO DAILY #10 ea 07/17/23 20 mEq effervescent tablet cephalexin 500 mg capsule 500 mg PO TID #30 caps 08/28/23 <Kristian Cuellar MD - Last Filed: 07/18/23 18:27> Allergies/adverse reactions: Allergies Allergy/AdvReac Type Severity Reaction Status Date / Time gabapentin Allergy Mild Verified 08/28/23 10:23 <Kristian Cuellar MD - Last Filed: 07/18/23 18:27> Review of Systems Status of ROS: Reports: 6 or more systems reviewed and unremarkable except as noted in History and below <Kristian Cuellar MD - Last Filed: 07/18/23 18:27> [facility] Medical History: Medical History History of thyroid cancer ?Z85.850 - Personal history of malignant neoplasm of thyroid (ICD-10) History of depression ?Z86.59 - Personal history of other mental and behavioral disorders (ICD-10) 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) ?Z86.69 - Personal history of other diseases of the nervous system and sense organs (ICD-10) <Kristian Cuellar MD - Last Filed: 07/18/23 18:27> Surgical History: Surgical History History of esophagogastroduodenoscopy (EGD) ?Z98.890 - Other specified postprocedural states (ICD-10) History of cataract surgery ?Z98.49 - Cataract extraction status, unspecified eye (ICD-10) Penile adhesions ?N47.5 - Adhesions of prepuce and glans penis (ICD-10) Non-melanoma skin cancer (2017) ?C44.90 - Unspecified malignant neoplasm of skin, unspecified (ICD-10) History of repair of rotator cuff (2001) ?Z98.890 - Other specified postprocedural states (ICD-10) History of lumbar laminectomy (10/23/19) ?Z98.890 - Other specified postprocedural states (ICD-10) History of carpal tunnel release of both wrists ?Z98.890 - Other specified postprocedural states (ICD-10) History of back surgery ?Z98.890 - Other specified postprocedural states (ICD-10) <Kristian Cuellar MD - Last Filed: 07/18/23 18:27> Family History: Family History Other Abdominal aortic aneurysm <Kristian Cuellar MD - Last Filed: 07/18/23 18:27> Social History: Social History Smoking Status: Former smoker What tobacco products do you use: cigarettes Smoking packs per day: 1 Smoking cigarettes per day: 20.0 Years smoked: 10 Smoking pack-years: 10.00 Smoking quit date/years: <= 15 years ago Do you use any of these nicotine containing products: None Second hand tobacco smoke exposure: No How often do you have a drink containing alcohol: monthly or less How many standard drinks containing alcohol do you have on a typical day: 3 or 4 How often do you have six or more drinks on one occasion: Never AUDIT-C Alcohol total score: 2 Non-prescribed substance use: denies use Little interest or pleasure in doing things: not at all Feeling down, depressed, or hopeless: not at all service: Yes <Kristian Cuellar MD - Last Filed: 07/18/23 18:27> Exam Narrative: Exam Narrative: Pleasant man. Looks thinner than last I saw him. Skin is somewhat sallow. No rash. Oropharynx is a little sticky. Cranial nerves 2-12 intact. Lungs appear to be clear. Is breathing easily. Moving all extremities with reasonable strength, without difficulty. Well-perfused peripherally. No lower extremity edema. Heart in regular rate and rhythm with a trace holosystolic murmur loudest at left sternal border. Abdomen is soft with normoactive bowel sounds. He does guard a little bit to palpation of the right upper abdomen. Otherwise no peritoneal signs. <Kristian Cuellar MD - Last Filed: 07/18/23 18:27> Const: Vital Signs, click to edit/add: Vital Signs - 24 hr 07/17/23 19:10 07/17/23 20:04 07/17/23 20:08 Temperature 96.9 F L Pulse Rate 57 L Pulse Rate [Right Pulse Oximeter] 66 Respiratory Rate 16 Blood Pressure 114/54 L Blood Pressure [Le ft Upper Arm] 127/84 Pulse Oximetry 100 98 Oxygen Delivery Me thod Room Air 07/17/23 20:15 07/17/23 20:30 07/17/23 20:32 Temperature Pulse Rate 59 L 72 69 Pulse Rate [Right Pulse Oximeter] Respiratory Rate Blood Pressure 115/55 L Blood Pressure [Le ft Upper Arm] Pulse Oximetry 98 88 95 Oxygen Delivery Me thod 07/17/23 20:33 07/17/23 21:10 07/17/23 21:15 Temperature Pulse Rate 69 78 77 Pulse Rate [Right Pulse Oximeter] Respiratory Rate Blood Pressure Blood Pressure [Le ft Upper Arm] Pulse Oximetry 91 100 94 Oxygen Delivery Me thod <Kristian Cuellar MD - Last Filed: 07/18/23 18:27> Vital Signs, click to edit/add: Vital Signs - 24 hr 07/17/23 19:10 07/17/23 20:04 07/17/23 20:08 Temperature 96.9 F L Pulse Rate 57 L Pulse Rate [Right Pulse Oximeter] 66 Respiratory Rate 16 Blood Pressure 114/54 L Blood Pressure [Le ft Upper Arm] 127/84 Pulse Oximetry 100 98 Oxygen Delivery Me thod Room Air 07/17/23 20:15 07/17/23 20:30 07/17/23 20:32 Temperature Pulse Rate 59 L 72 69 Pulse Rate [Right Pulse Oximeter] Respiratory Rate Blood Pressure 115/55 L Blood Pressure [Le ft Upper Arm] Pulse Oximetry 98 88 95 Oxygen Delivery Me thod 07/17/23 20:33 07/17/23 21:10 07/17/23 21:15 Temperature Pulse Rate 69 78 77 Pulse Rate [Right Pulse Oximeter] Respiratory Rate Blood Pressure Blood Pressure [Le ft Upper Arm] Pulse Oximetry 91 100 94 Oxygen Delivery Me thod <Ramon Figueroa MD - Last Filed: 09/10/23 11:45> Documenting provider has reviewed patient's vital signs: yes <Kristian Cuellar MD - Last Filed: 07/18/23 18:27> Course Course ED Course: Patient signed over to Dr. Figueroa at shift change-[address] results. Lab so far: WBC 7.0, hemoglobin 8.7. ( recent hemoglobin had been 8.7, 9.1), platelet count 119 (recently 115) Sodium 139, potassium low at 2.8, chloride 106, bicarb 24, BUN 11, creatinine 0.6, glucose 103 Venous lactic acid 1.1 Magnesium 1.5 Totally bilirubin 0.3, AST 27, ALT 18, alk-phos 123 CRP 3.3, Lipase 10 UA-negative for infection CT IMPRESSION: 1. Slightly distended gallbladder with pericholecystic fluid/inflammation. No cholelithiasis or other evidence of acute cholecystitis identified. Query possible acalculous cholecystitis. Consider ultrasound or nuclear Medicine for further evaluation if clinically warranted. 2. Persistent but decreased mural thickening of the duodenum in this patient with given history of abdominal lymphoma. 3. Trace free fluid layering along the paracolic gutters bilaterally. ER course I recheck the patient at about 10:30 p.m.. He said he had passed a large flatus and had complete resolution of his abdominal pain. At this point he is asymptomatic and feeling great. MDM Patient has a known duodenal carcinoma, with oncology care through [facility], currently on chemotherapy. He has had 3 rounds of chemo so far, most recent drawn was 10 days ago and neck strong will be next week on Saturday. On his follow-up recent scans there has actually been some improvement in his malignancy. [place] tells him that the cancer is ?treatable. ? With his abrupt onset of right-sided abdominal pain tonight we were concerned about possible intestinal complications such as obstruction, perforation, abscess. Fortunately CT imaging is reassuring on that front. Labs are at [facility] and are reassuring. CT scan does show abnormalities of his gallbladder including possible gallbladder wall thickening and pericholecystic fluid suspicious for acalculous cholecystitis. The CT is similar to April when he was here in the ER [facility]. During that episode, acalculous cholecystitis was suspected he was transferred to [facility]. Patient and his report that he had extensive workup at [place] and it was determined that his gallbladder was in fact not the problem. During that admission the for suspicions for duodenal cancer were discovered. Subsequently had further workup at [place] that confirmed the duodenal cancer, leading to further treatment. At this point with essentially stable CT scan, normal labs, pain that is now resolved, stable vital signs, no fever, no jaundice, I do not think that the patient is having acute acalculous cholecystitis. We discussed that we could consider transfer to [facility] for monitoring and further workup. However the patient would rather go home and I agree that transfer at this point seems excessive. Plan of care will be discharged home with close clinical monitoring. He will return to the ER immediately with any recurrent abdominal pains or for any other concerning symptoms develop such as vomiting, fever, jaundice, confusion, weakness. Questions answered hand we had a long discussion between the patient, his , and myself. To treat his low potassium we will supplement with oral potassium supplements and dietary intake. He will recheck potassium in 5 days when he follows up at [place] on Saturday. <Ramon Figueroa MD - Last Filed: 09/10/23 11:45> Vital Signs Vital signs: Initial Vital Signs Temperature 96.9 F L 07/17/23 19:10 Temperature Source Temporal Artery Scan 07/17/23 19:10 Pulse Rate 66 07/17/23 19:10 Pulse Rhythm Regular 07/17/23 19:10 Respiratory Rate 16 07/17/23 19:10 Blood Pressure 127/84 07/17/23 19:10 Blood Pressure Mean 98 07/17/23 19:10 Blood Pressure Position Semi-Fowlers 07/17/23 19:10 Pulse Oximetry 100 07/17/23 19:10 Oxygen Delivery Method Room Air 07/17/23 19:10 Vital Signs Temperature 96.9 F L 07/17/23 19:10 Pulse Rate 66 07/17/23 19:10 Respiratory Rate 16 07/17/23 19:10 Blood Pressure 127/84 07/17/23 19:10 Pulse Oximetry 100 07/17/23 19:10 Oxygen Delivery Method Room Air 07/17/23 19:10 Temperature 96.9 F L 07/17/23 19:10 Pulse Rate 77 07/17/23 21:15 Respiratory Rate 16 07/17/23 19:10 Blood Pressure 115/55 L 07/17/23 20:32 Pulse Oximetry 94 07/17/23 21:15 Oxygen Delivery Method Room Air 07/17/23 19:10 <Kristian Cuellar MD - Last Filed: 07/18/23 18:27> Initial Vital Signs Temperature 96.9 F L 07/17/23 19:10 Temperature Source Temporal Artery Scan 07/17/23 19:10 Pulse Rate 66 07/17/23 19:10 Pulse Rhythm Regular 07/17/23 19:10 Respiratory Rate 16 07/17/23 19:10 Blood Pressure 127/84 07/17/23 19:10 Blood Pressure Mean 98 07/17/23 19:10 Blood Pressure Position Semi-Fowlers 07/17/23 19:10 Pulse Oximetry 100 07/17/23 19:10 Oxygen Delivery Method Room Air 07/17/23 19:10 Vital Signs Temperature 96.9 F L 07/17/23 19:10 Pulse Rate 66 07/17/23 19:10 Respiratory Rate 16 07/17/23 19:10 Blood Pressure 127/84 07/17/23 19:10 Pulse Oximetry 100 07/17/23 19:10 Oxygen Delivery Method Room Air 07/17/23 19:10 Temperature 96.9 F L 07/17/23 19:10 Pulse Rate 77 07/17/23 21:15 Respiratory Rate 16 07/17/23 19:10 Blood Pressure 115/55 L 07/17/23 20:32 Pulse Oximetry 94 07/17/23 21:15 Oxygen Delivery Method Room Air 07/17/23 19:10 <Ramon Figueroa MD - Last Filed: 09/10/23 11:45> Medications Administered Medications: Discontinued Medications Generic Name Dose Route Start Last Admin Trade Name Freq PRN Reason Stop Dose Admin Hydromorphone HCl 0.5 mg 07/17/23 19:39 07/17/23 20:01 Hydromorphone 0.5 Mg/0.5 Ml Inj IVP 07/17/23 19:40 0.5 mg ONCE ONE Administration Sodium Chloride 1,000 mls @ 1,000 mls/hr 07/17/23 19:39 07/17/23 21:40 0.9 % Sodium Chloride 1000 Ml IV 07/17/23 20:38 Infused .Q1H ONE Infusion Potassium Chloride 10 meq in 100 mls @ 100 mls/hr 07/17/23 20:51 07/17/23 22:14 Potassium Chloride IVPB 07/17/23 21:50 Infused ONCE ONE Infusion <Kristian Cuellar MD - Last Filed: 07/18/23 18:27> Discontinued Medications Generic Name Dose Route Start Last Admin Trade Name Freq PRN Reason Stop Dose Admin Hydromorphone HCl 0.5 mg 07/17/23 19:39 07/17/23 20:01 Hydromorphone 0.5 Mg/0.5 Ml Inj IVP 07/17/23 19:40 0.5 mg ONCE ONE Administration Sodium Chloride 1,000 mls @ 1,000 mls/hr 07/17/23 19:39 07/17/23 21:40 0.9 % Sodium Chloride 1000 Ml IV 07/17/23 20:38 Infused .Q1H ONE Infusion Potassium Chloride 10 meq in 100 mls @ 100 mls/hr 07/17/23 20:51 07/17/23 22:14 Potassium Chloride IVPB 07/17/23 21:50 Infused ONCE ONE Infusion <Ramon Figueroa MD - Last Filed: 09/10/23 11:45> Medical Decision Making MDM Narrative Medical decision making narrative: Could simply be peristaltic action against inflamed intestine/lesion. Certainly could also be perforated per concern. Has been having diarrhea and this might predispose to some discomfort here as well. There were concerns regarding gallbladder in the past. He has not had his gallbladder removed. Pancreatitis remains in differential as well. Vascular disruption/bleed/hematoma? Will be initiating IV fluids. Does need re-dosing of pain medication; will be giving Dilaudid. History of hypotension with prior visits with concerns of evolving sepsis. Will monitor closely. Blood cultures also drawn. Lactate reassuring at 1.1. Imaging with IV contrasted CT of abdomen and pelvis. Labs returned with hypokalemia at 2.8. I see also history of hypomagnesemia but this level is not back as an add on. Hypokalemia may be secondary to poor p.o. intake or GI losses from diarrhea. Pending results of CT will initiate IV bump of potassium; may be able to take oral. 2128 -- handing off at change of shift <Kristian Cuellar MD - Last Filed: 07/18/23 18:27> Lab Data Lab results reviewed: Yes I reviewed the patient's lab results <Kristian Cuellar MD - Last Filed: 07/18/23 18:27> Labs: Lab Results 07/17/23 07/17/23 07/17/23 Range/Units 19:39 20:09 20:09 WBC 7.01 (4.50-11.00) K/uL RBC 3.25 L (4.30-5.90) m/uL Hgb 8.7 L (13.5-17.5) gm/dL Hct 27.2 L (37.0-53.0) % MCV 84 (80-100) fL MCH 27 (26-34) pg MCHC 32 (32-36) gm/dL RDW Coeff of Maximino 22.5 H (11.5-15.5) % Plt Count 119 L (140-440) K/uL Neut % (Auto) 91.3 H (42.0-72.0) % Lymph % (Auto) 2.1 L (20-44) % [place] % (Auto) 4.3 (0.0-11.0) % Eos % (Auto) 1.0 (0.0-7.0) % Baso % (Auto) 0.4 (0.0-3.0) % Neut # (Auto) 6.40 (1.7-7.0) K/uL Lymph # (Auto) 0.10 L (0.90-2.90) K/uL [place] # (Auto) 0.30 (0.00-0.90) K/UL Eos # (Auto) 0.07 (0.00-0.50) K/uL Baso # (Auto) 0.03 (0.00-0.30) K/uL Abs Immat Gran (auto) 0.06 (0.00-0.30) K/uL Imm/Tot Granulo (auto) 0.9 % Sodium 139 (135-149) mmol/L Potassium 2.8 L* (3.6-5.1) mmol/L Chloride 106 (96-114) mmol/L Carbon Dioxide 24 (20-32) mmol/L Anion Gap 9 (7-15) mEq/L BUN 11 (7-30) mg/dL Creatinine 0.6 (0.5-1.5) mg/dL Estimated GFR 101 ml/min Glucose 103 (60-115) mg/dL Lactate 1.1 (0.5-1.9) mmol/L Calcium 7.9 L (8.4-10.6) mg/dL Magnesium 1.5 (1.5-2.6) mg/dL Total Bilirubin 0.3 Cancelled (0.1-1.5) mg/dL Direct Bilirubin 0.0 (0.0-0.5) mg/dL AST (12-35) U/L ALT (4-50) U/L Alkaline Phosphatase (40-150) U/L C-Reactive Protein (0.5-1.0) mg/dL Total Protein (6.0-8.3) g/dL Albumin (3.3-5.0) g/dL Lipase (23-300) U/L Urine Color (Yellow) Urine Appearance (Clear) Urine pH (5.0-8.5) Ur Specific [place] (1.000-1.030) Urine Protein (Negative) Urine Glucose (UA) (Negative) Urine Ketones (Negative) Urine Blood (Negative) Urine Nitrite (Negative) Urine Bilirubin (Negative) Urine Urobilinogen (0.2-1.0) Ur Leukocyte Esterase (Negative) Urine RBC (0-2) Urine WBC (0-5) Ur Squamous Epith Cells (None-Few) Urine Bacteria (None) Lab Acknowledgement 07/17/23 07/17/23 07/17/23 Range/Units 20:09 20:09 20:09 WBC (4.50-11.00) K/uL RBC (4.30-5.90) m/uL Hgb (13.5-17.5) gm/dL Hct (37.0-53.0) % MCV (80-100) fL MCH (26-34) pg MCHC (32-36) gm/dL RDW Coeff of Maximino (11.5-15.5) % Plt Count (140-440) K/uL Neut % (Auto) (42.0-72.0) % Lymph % (Auto) (20-44) % [place] % (Auto) (0.0-11.0) % Eos % (Auto) (0.0-7.0) % Baso % (Auto) (0.0-3.0) % Neut # (Auto) (1.7-7.0) K/uL Lymph # (Auto) (0.90-2.90) K/uL [place] # (Auto) (0.00-0.90) K/UL Eos # (Auto) (0.00-0.50) K/uL Baso # (Auto) (0.00-0.30) K/uL Abs Immat Gran (auto) (0.00-0.30) K/uL Imm/Tot Granulo (auto) % Sodium (135-149) mmol/L Potassium (3.6-5.1) mmol/L Chloride (96-114) mmol/L Carbon Dioxide (20-32) mmol/L Anion Gap (7-15) mEq/L BUN (7-30) mg/dL Creatinine (0.5-1.5) mg/dL Estimated GFR ml/min Glucose (60-115) mg/dL Lactate (0.5-1.9) mmol/L Calcium (8.4-10.6) mg/dL Magnesium (1.5-2.6) mg/dL Total Bilirubin (0.1-1.5) mg/dL Direct Bilirubin Cancelled (0.0-0.5) mg/dL AST 27 Cancelled (12-35) U/L ALT 18 Cancelled (4-50) U/L Alkaline Phosphatase 123 (40-150) U/L C-Reactive Protein (0.5-1.0) mg/dL Total Protein (6.0-8.3) g/dL Albumin (3.3-5.0) g/dL Lipase (23-300) U/L Urine Color (Yellow) Urine Appearance (Clear) Urine pH (5.0-8.5) Ur Specific [place] (1.000-1.030) Urine Protein (Negative) Urine Glucose (UA) (Negative) Urine Ketones (Negative) Urine Blood (Negative) Urine Nitrite (Negative) Urine Bilirubin (Negative) Urine Urobilinogen (0.2-1.0) Ur Leukocyte Esterase (Negative) Urine RBC (0-2) Urine WBC (0-5) Ur Squamous Epith Cells (None-Few) Urine Bacteria (None) Lab Acknowledgement 07/17/23 07/17/23 07/17/23 Range/Units 20:09 20:09 20:09 WBC (4.50-11.00) K/uL RBC (4.30-5.90) m/uL Hgb (13.5-17.5) gm/dL Hct (37.0-53.0) % MCV (80-100) fL MCH (26-34) pg MCHC (32-36) gm/dL RDW Coeff of Maximino (11.5-15.5) % Plt Count (140-440) K/uL Neut % (Auto) (42.0-72.0) % Lymph % (Auto) (20-44) % [place] % (Auto) (0.0-11.0) % Eos % (Auto) (0.0-7.0) % Baso % (Auto) (0.0-3.0) % Neut # (Auto) (1.7-7.0) K/uL Lymph # (Auto) (0.90-2.90) K/uL [place] # (Auto) (0.00-0.90) K/UL Eos # (Auto) (0.00-0.50) K/uL Baso # (Auto) (0.00-0.30) K/uL Abs Immat Gran (auto) (0.00-0.30) K/uL Imm/Tot Granulo (auto) % Sodium (135-149) mmol/L Potassium (3.6-5.1) mmol/L Chloride (96-114) mmol/L Carbon Dioxide (20-32) mmol/L Anion Gap (7-15) mEq/L BUN (7-30) mg/dL Creatinine (0.5-1.5) mg/dL Estimated GFR ml/min Glucose (60-115) mg/dL Lactate (0.5-1.9) mmol/L Calcium (8.4-10.6) mg/dL Magnesium (1.5-2.6) mg/dL Total Bilirubin (0.1-1.5) mg/dL Direct Bilirubin (0.0-0.5) mg/dL AST (12-35) U/L ALT (4-50) U/L Alkaline Phosphatase Cancelled (40-150) U/L C-Reactive Protein 3.3 H (0.5-1.0) mg/dL Total Protein 5.6 L Cancelled (6.0-8.3) g/dL Albumin 3.3 Cancelled (3.3-5.0) g/dL Lipase 10 L (23-300) U/L Urine Color (Yellow) Urine Appearance (Clear) Urine pH (5.0-8.5) Ur Specific [place] (1.000-1.030) Urine Protein (Negative) Urine Glucose (UA) (Negative) Urine Ketones (Negative) Urine Blood (Negative) Urine Nitrite (Negative) Urine Bilirubin (Negative) Urine Urobilinogen (0.2-1.0) Ur Leukocyte Esterase (Negative) Urine RBC (0-2) Urine WBC (0-5) Ur Squamous Epith Cells (None-Few) Urine Bacteria (None) Lab Acknowledgement 07/17/23 07/17/23 07/17/23 Range/Units 20:09 20:41 21:22 WBC (4.50-11.00) K/uL RBC (4.30-5.90) m/uL Hgb (13.5-17.5) gm/dL Hct (37.0-53.0) % MCV (80-100) fL MCH (26-34) pg MCHC (32-36) gm/dL RDW Coeff of Maximino (11.5-15.5) % Plt Count (140-440) K/uL Neut % (Auto) (42.0-72.0) % Lymph % (Auto) (20-44) % [place] % (Auto) (0.0-11.0) % Eos % (Auto) (0.0-7.0) % Baso % (Auto) (0.0-3.0) % Neut # (Auto) (1.7-7.0) K/uL Lymph # (Auto) (0.90-2.90) K/uL [place] # (Auto) (0.00-0.90) K/UL Eos # (Auto) (0.00-0.50) K/uL Baso # (Auto) (0.00-0.30) K/uL Abs Immat Gran (auto) (0.00-0.30) K/uL Imm/Tot Granulo (auto) % Sodium (135-149) mmol/L Potassium (3.6-5.1) mmol/L Chloride (96-114) mmol/L Carbon Dioxide (20-32) mmol/L Anion Gap (7-15) mEq/L BUN (7-30) mg/dL Creatinine (0.5-1.5) mg/dL Estimated GFR ml/min Glucose (60-115) mg/dL Lactate (0.5-1.9) mmol/L Calcium (8.4-10.6) mg/dL Magnesium (1.5-2.6) mg/dL Total Bilirubin (0.1-1.5) mg/dL Direct Bilirubin (0.0-0.5) mg/dL AST (12-35) U/L ALT (4-50) U/L Alkaline Phosphatase (40-150) U/L C-Reactive Protein (0.5-1.0) mg/dL Total Protein (6.0-8.3) g/dL Albumin (3.3-5.0) g/dL Lipase Cancelled (23-300) U/L Urine Color Yellow (Yellow) Urine Appearance Clear (Clear) Urine pH 5.5 (5.0-8.5) Ur Specific [place] 1.015 (1.000-1.030) Urine Protein 2+ A (Negative) Urine Glucose (UA) 2+ A (Negative) Urine Ketones 1+ A (Negative) Urine Blood Negative (Negative) Urine Nitrite Negative (Negative) Urine Bilirubin Negative (Negative) Urine Urobilinogen 0.2 (0.2-1.0) Ur Leukocyte Esterase Negative (Negative) Urine RBC 0-2 (0-2) Urine WBC 0-2 (0-5) Ur Squamous Epith Cells Few (None-Few) Urine Bacteria None (None) Lab Acknowledgement Test Added <Kristian Cuellar MD - Last Filed: 07/18/23 18:27> Lab Results 07/17/23 07/17/23 07/17/23 Range/Units 19:39 20:09 20:09 WBC 7.01 (4.50-11.00) K/uL RBC 3.25 L (4.30-5.90) m/uL Hgb 8.7 L (13.5-17.5) gm/dL Hct 27.2 L (37.0-53.0) % MCV 84 (80-100) fL MCH 27 (26-34) pg MCHC 32 (32-36) gm/dL RDW Coeff of Maximino 22.5 H (11.5-15.5) % Plt Count 119 L (140-440) K/uL Neut % (Auto) 91.3 H (42.0-72.0) % Lymph % (Auto) 2.1 L (20-44) % [place] % (Auto) 4.3 (0.0-11.0) % Eos % (Auto) 1.0 (0.0-7.0) % Baso % (Auto) 0.4 (0.0-3.0) % Neut # (Auto) 6.40 (1.7-7.0) K/uL Lymph # (Auto) 0.10 L (0.90-2.90) K/uL [place] # (Auto) 0.30 (0.00-0.90) K/UL Eos # (Auto) 0.07 (0.00-0.50) K/uL Baso # (Auto) 0.03 (0.00-0.30) K/uL Abs Immat Gran (auto) 0.06 (0.00-0.30) K/uL Imm/Tot Granulo (auto) 0.9 % Sodium 139 (135-149) mmol/L Potassium 2.8 L* (3.6-5.1) mmol/L Chloride 106 (96-114) mmol/L Carbon Dioxide 24 (20-32) mmol/L Anion Gap 9 (7-15) mEq/L BUN 11 (7-30) mg/dL Creatinine 0.6 (0.5-1.5) mg/dL Estimated GFR 101 ml/min Glucose 103 (60-115) mg/dL Lactate 1.1 (0.5-1.9) mmol/L Calcium 7.9 L (8.4-10.6) mg/dL Magnesium 1.5 (1.5-2.6) mg/dL Total Bilirubin 0.3 Cancelled (0.1-1.5) mg/dL Direct Bilirubin 0.0 (0.0-0.5) mg/dL AST (12-35) U/L ALT (4-50) U/L Alkaline Phosphatase (40-150) U/L C-Reactive Protein (0.5-1.0) mg/dL Total Protein (6.0-8.3) g/dL Albumin (3.3-5.0) g/dL Lipase (23-300) U/L Urine Color (Yellow) Urine Appearance (Clear) Urine pH (5.0-8.5) Ur Specific [place] (1.000-1.030) Urine Protein (Negative) Urine Glucose (UA) (Negative) Urine Ketones (Negative) Urine Blood (Negative) Urine Nitrite (Negative) Urine Bilirubin (Negative) Urine Urobilinogen (0.2-1.0) Ur Leukocyte Esterase (Negative) Urine RBC (0-2) Urine WBC (0-5) Ur Squamous Epith Cells (None-Few) Urine Bacteria (None) Lab Acknowledgement 07/17/23 07/17/23 07/17/23 Range/Units 20:09 20:09 20:09 WBC (4.50-11.00) K/uL RBC (4.30-5.90) m/uL Hgb (13.5-17.5) gm/dL Hct (37.0-53.0) % MCV (80-100) fL MCH (26-34) pg MCHC (32-36) gm/dL RDW Coeff of Maximino (11.5-15.5) % Plt Count (140-440) K/uL Neut % (Auto) (42.0-72.0) % Lymph % (Auto) (20-44) % [place] % (Auto) (0.0-11.0) % Eos % (Auto) (0.0-7.0) % Baso % (Auto) (0.0-3.0) % Neut # (Auto) (1.7-7.0) K/uL Lymph # (Auto) (0.90-2.90) K/uL [place] # (Auto) (0.00-0.90) K/UL Eos # (Auto) (0.00-0.50) K/uL Baso # (Auto) (0.00-0.30) K/uL Abs Immat Gran (auto) (0.00-0.30) K/uL Imm/Tot Granulo (auto) % Sodium (135-149) mmol/L Potassium (3.6-5.1) mmol/L Chloride (96-114) mmol/L Carbon Dioxide (20-32) mmol/L Anion Gap (7-15) mEq/L BUN (7-30) mg/dL Creatinine (0.5-1.5) mg/dL Estimated GFR ml/min Glucose (60-115) mg/dL Lactate (0.5-1.9) mmol/L Calcium (8.4-10.6) mg/dL Magnesium (1.5-2.6) mg/dL Total Bilirubin (0.1-1.5) mg/dL Direct Bilirubin Cancelled (0.0-0.5) mg/dL AST 27 Cancelled (12-35) U/L ALT 18 Cancelled (4-50) U/L Alkaline Phosphatase 123 (40-150) U/L C-Reactive Protein (0.5-1.0) mg/dL Total Protein (6.0-8.3) g/dL Albumin (3.3-5.0) g/dL Lipase (23-300) U/L Urine Color (Yellow) Urine Appearance (Clear) Urine pH (5.0-8.5) Ur Specific [place] (1.000-1.030) Urine Protein (Negative) Urine Glucose (UA) (Negative) Urine Ketones (Negative) Urine Blood (Negative) Urine Nitrite (Negative) Urine Bilirubin (Negative) Urine Urobilinogen (0.2-1.0) Ur Leukocyte Esterase (Negative) Urine RBC (0-2) Urine WBC (0-5) Ur Squamous Epith Cells (None-Few) Urine Bacteria (None) Lab Acknowledgement 07/17/23 07/17/23 07/17/23 Range/Units 20:09 20:09 20:09 WBC (4.50-11.00) K/uL RBC (4.30-5.90) m/uL Hgb (13.5-17.5) gm/dL Hct (37.0-53.0) % MCV (80-100) fL MCH (26-34) pg MCHC (32-36) gm/dL RDW Coeff of Maximino (11.5-15.5) % Plt Count (140-440) K/uL Neut % (Auto) (42.0-72.0) % Lymph % (Auto) (20-44) % [place] % (Auto) (0.0-11.0) % Eos % (Auto) (0.0-7.0) % Baso % (Auto) (0.0-3.0) % Neut # (Auto) (1.7-7.0) K/uL Lymph # (Auto) (0.90-2.90) K/uL [place] # (Auto) (0.00-0.90) K/UL Eos # (Auto) (0.00-0.50) K/uL Baso # (Auto) (0.00-0.30) K/uL Abs Immat Gran (auto) (0.00-0.30) K/uL Imm/Tot Granulo (auto) % Sodium (135-149) mmol/L Potassium (3.6-5.1) mmol/L Chloride (96-114) mmol/L Carbon Dioxide (20-32) mmol/L Anion Gap (7-15) mEq/L BUN (7-30) mg/dL Creatinine (0.5-1.5) mg/dL Estimated GFR ml/min Glucose (60-115) mg/dL Lactate (0.5-1.9) mmol/L Calcium (8.4-10.6) mg/dL Magnesium (1.5-2.6) mg/dL Total Bilirubin (0.1-1.5) mg/dL Direct Bilirubin (0.0-0.5) mg/dL AST (12-35) U/L ALT (4-50) U/L Alkaline Phosphatase Cancelled (40-150) U/L C-Reactive Protein 3.3 H (0.5-1.0) mg/dL Total Protein 5.6 L Cancelled (6.0-8.3) g/dL Albumin 3.3 Cancelled (3.3-5.0) g/dL Lipase 10 L (23-300) U/L Urine Color (Yellow) Urine Appearance (Clear) Urine pH (5.0-8.5) Ur Specific [place] (1.000-1.030) Urine Protein (Negative) Urine Glucose (UA) (Negative) Urine Ketones (Negative) Urine Blood (Negative) Urine Nitrite (Negative) Urine Bilirubin (Negative) Urine Urobilinogen (0.2-1.0) Ur Leukocyte Esterase (Negative) Urine RBC (0-2) Urine WBC (0-5) Ur Squamous Epith Cells (None-Few) Urine Bacteria (None) Lab Acknowledgement 07/17/23 07/17/23 07/17/23 Range/Units 20:09 20:41 21:22 WBC (4.50-11.00) K/uL RBC (4.30-5.90) m/uL Hgb (13.5-17.5) gm/dL Hct (37.0-53.0) % MCV (80-100) fL MCH (26-34) pg MCHC (32-36) gm/dL RDW Coeff of Maximino (11.5-15.5) % Plt Count (140-440) K/uL Neut % (Auto) (42.0-72.0) % Lymph % (Auto) (20-44) % [place] % (Auto) (0.0-11.0) % Eos % (Auto) (0.0-7.0) % Baso % (Auto) (0.0-3.0) % Neut # (Auto) (1.7-7.0) K/uL Lymph # (Auto) (0.90-2.90) K/uL [place] # (Auto) (0.00-0.90) K/UL Eos # (Auto) (0.00-0.50) K/uL Baso # (Auto) (0.00-0.30) K/uL Abs Immat Gran (auto) (0.00-0.30) K/uL Imm/Tot Granulo (auto) % Sodium (135-149) mmol/L Potassium (3.6-5.1) mmol/L Chloride (96-114) mmol/L Carbon Dioxide (20-32) mmol/L Anion Gap (7-15) mEq/L BUN (7-30) mg/dL Creatinine (0.5-1.5) mg/dL Estimated GFR ml/min Glucose (60-115) mg/dL Lactate (0.5-1.9) mmol/L Calcium (8.4-10.6) mg/dL Magnesium (1.5-2.6) mg/dL Total Bilirubin (0.1-1.5) mg/dL Direct Bilirubin (0.0-0.5) mg/dL AST (12-35) U/L ALT (4-50) U/L Alkaline Phosphatase (40-150) U/L C-Reactive Protein (0.5-1.0) mg/dL Total Protein (6.0-8.3) g/dL Albumin (3.3-5.0) g/dL Lipase Cancelled (23-300) U/L Urine Color Yellow (Yellow) Urine Appearance Clear (Clear) Urine pH 5.5 (5.0-8.5) Ur Specific [place] 1.015 (1.000-1.030) Urine Protein 2+ A (Negative) Urine Glucose (UA) 2+ A (Negative) Urine Ketones 1+ A (Negative) Urine Blood Negative (Negative) Urine Nitrite Negative (Negative) Urine Bilirubin Negative (Negative) Urine Urobilinogen 0.2 (0.2-1.0) Ur Leukocyte Esterase Negative (Negative) Urine RBC 0-2 (0-2) Urine WBC 0-2 (0-5) Ur Squamous Epith Cells Few (None-Few) Urine Bacteria None (None) Lab Acknowledgement Test Added <Ramon Figueroa MD - Last Filed: 09/10/23 11:45> Discharge Plan Discharge Clinical Impression: Lymphoma, Abdominal pain, Dehydration, Hypokalemia <Kristian Cuellar MD - Last Filed: 07/18/23 18:27> Patient Disposition: Home, Self-Care <Kristian Cuellar MD - Last Filed: 07/18/23 18:27> Condition: Stable <Kristian Cuellar MD - Last Filed: 07/18/23 18:27> Instructions: Cholecystitis (ED), Hypokalemia (ED), Abdominal Pain (ED) <Kristian Cuellar MD - Last Filed: 07/18/23 18:27> Additional Instructions: As we discussed, please return to the ER right away if you have any problems-especially if you have recurrent abdominal pain, fever, jaundice, vomiting, weakness, confusion. Please supplemental potassium with foods such as bananas, potato skins, as well as potassium pills. After potassium level rechecked by Saturday. <Kristian Cuellar MD - Last Filed: 07/18/23 18:27> Prescriptions: New potassium bicarb-citric acid 20 mEq tablet, effervescent 20 meq PO DAILY Qty: 10 0RF No Action levothyroxine 112 mcg tablet 112 - 224 mcg PO .UD Patient Comments: Takes 112mcg Sat, , Sat, and 224 rest of week. aspirin 81 mg tablet,delayed release (DR/EC) 81 mg PO QDAY vit no.[id number] [ Plus Vitamin-Mineral] PO .QD cephalexin 500 mg capsule 500 mg PO TID Qty: 30 0RF acetaminophen 500 mg tablet 1,000 mg PO Q6H PRN Rx Instructions: NO MORE THAN 4000 MG/DAY probenecid-colchicine 500-0.5 mg tablet 1 tab PO BID PRN Rx Instructions: use as needed for a gout flare allopurinol 300 mg tablet 300 mg PO QDAY Qty: 90 3RF amitriptyline 25 mg tablet 25 mg PO QDAY Patient Comments: TAKE 1 TABLET BY MOUTH AT BEDTIME lisinopril-hydrochlorothiazide 20-25 mg tablet 1 tab PO BID Patient Comments: TAKE 1 TABLET BY MOUTH TWICE DAILY metformin 1,000 mg tablet 1,000 mg PO QDAY simvastatin 20 mg tablet 20 mg PO QDAY Jardiance 10 mg tablet 10 mg PO QAM labetalol 100 mg tablet 150 mg PO BID Qty: 135 7RF <Kristian Cuellar MD - Last Filed: 07/18/23 18:27> Follow Up/Referrals: Callie Smalls MD [Primary Care Provider] - <Kristian Cuellar MD - Last Filed: 07/18/23 18:27> Stand Alone Forms: MyHealth Info Instructions <Kristian Cuellar MD - Last Filed: 07/18/23 18:27>
--- NOTE | 2023-07-17 19:39 | CRLHL7_ITS ---
For Patients: As a result of the Century Cures Act, medical imaging exams and procedure reports are released immediately into your electronic medical record. You may view this report before your referring provider. If you have questions, please contact your health care provider. INDICATION: History abdominal and foam appeared severe upper right abdominal pain. TECHNIQUE: Multiplanar CT examination of the abdomen and pelvis were acquired after the administration of 90 mL Isovue 370 intravenously. COMPARISON: CT abdomen pelvis 04/22/2023. FINDINGS: Lower chest: Linear bandlike opacifications of the lung bases likely due to subsegmental atelectasis and/or scarring. Fibrotic changes diffusely. No focal consolidation normal heart size. Mitral annular calcifications. Severe coronary arterial calcifications. No pleural effusions or pneumothorax. Liver: Hepatic steatosis. Normal sized. Gallbladder/Biliary: Slight decrease in the distended gallbladder caliber, overall stable. No cholelithiasis there is pericholecystic fluid. No biliary ductal dilitation. Pancreas: Atrophic. Spleen: Normal. Adrenal Glands: Normal. Kidneys: Normal size and symmetrically enhancing. No obstructive calculi or hydronephrosis. Ureters: Unremarkable. Bladder: Unremarkable. Bowel: No bowel obstruction. No significant colonic diverticulosis. 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 Pelvic organs: Enlarged prostate. Peritoneum: Trace fluid along the paracolic gutters bilaterally. No pneumoperitoneum. Vessels: Minimal scattered foci air within the tributaries draining into the superior mesenteric vein, probably due to recent intravenous access. Portal vein remains patent. Severe atherosclerotic calcifications. Lymph Nodes: No lymphadenopathy. Abdominal Wall/Soft Tissues: Unremarkable. Bones: Unremarkable. IMPRESSION: 1. Slightly distended gallbladder with pericholecystic fluid/inflammation. No cholelithiasis or other evidence of acute cholecystitis identified. Query possible acalculous cholecystitis. Consider ultrasound or nuclear Medicine for further evaluation if clinically warranted. 2. Persistent but decreased mural thickening of the duodenum in this patient with given history of abdominal lymphoma. 3. Trace free fluid layering along the paracolic gutters bilaterally. Please note that all CT scans at this facility use dose modulation, iterative reconstruction, and/or weight-based dosing when appropriate to reduce radiation dose to as low as reasonably achievable. Dictated by Chapito Nunez MD @ 07/17/2023 10:12:24 PM (Electronically Signed)
[2023-07-17] MEDS: 0.9 % SODIUM CHLORIDE 1000 ml 1,000 ML IV (20:00)
[2023-07-17] MEDS: HYDROmorphone 0.5 mg/0.5 ml inj IVP (20:01)
[2023-07-17 20:13] LABS: Lactate* 1.1 mmol/L (0.5-1.9)
[2023-07-17 20:17] LABS: Basophils Absolute Auto 0.03 K/uL (0.00-0.30); Basophils Percent Auto 0.4 % (0.0-3.0); Eosinophils Absolute Auto 0.07 K/uL (0.00-0.50); Hematocrit 27.2 % (37.0-53.0); Hemoglobin* 8.7 gm/dL (13.5-17.5); Immature Granulocytes Abs Auto 0.06 K/uL (0.00-0.30); Immature Granulocytes Pct Auto 0.9 %; Lymphocytes Percent Auto 2.1 % (20-44); Mean Corpuscular HGB Conc 32 gm/dL (32-36); Mean Corpuscular Hemoglobin 27 pg (26-34); Mean Corpuscular Volume 84 fL (80-100); Monocytes Percent Auto 4.3 % (0.0-11.0); Neutrophils Percent Auto 91.3 % (42.0-72.0); Platelet Count* 119 K/uL (140-440); RDW Coefficient of Variation % 22.5 % (11.5-15.5); Red Blood Count 3.25 m/uL (4.30-5.90); White Blood Count* 7.01 K/uL (4.50-11.00)
[2023-07-17 20:18] LABS: Slide Review Reflex No
[2023-07-17 20:33] LABS: Albumin* 3.3 g/dL (3.3-5.0); Chloride* 106 mmol/L (96-114)
[2023-07-17 20:34] LABS: Sodium* 139 mmol/L (135-149)
[2023-07-17 20:36] LABS: Anion Gap 9 mEq/L (7-15); Aspartate Amino Transferase* 27 U/L (12-35); Bilirubin Total* 0.3 mg/dL (0.1-1.5); Carbon Dioxide* 24 mmol/L (20-32); Creatinine* 0.6 mg/dL (0.5-1.5); Estimated Glomerular Filt Rate 101 ml/min; Total Protein* 5.6 g/dL (6.0-8.3)
[2023-07-17 20:37] LABS: Alanine Aminotransferase* 18 U/L (4-50); Alkaline Phosphatase* 123 U/L (40-150); Blood Urea Nitrogen* 11 mg/dL (7-30); Calcium* 7.9 mg/dL (8.4-10.6); Glucose* 103 mg/dL (60-115); Lipase* 10 U/L (23-300)
[2023-07-17 20:39] LABS: C Reactive Protein* 3.3 mg/dL (0.5-1.0)
[2023-07-17 20:41] LABS: Potassium* 2.8 mmol/L (3.6-5.1)
[2023-07-17 20:53] LABS: Appearance Urine Clear (Clear); Bilirubin Urine Negative (Negative); Blood Urine Negative (Negative); Color Urine Yellow (Yellow); Glucose Urine 2+ (Negative); Ketones Urine 1+ (Negative); Leukocyte Esterase Urine Negative (Negative); Nitrite Urine Negative (Negative); Protein Urine 2+ (Negative); Specific Gravity Urine 1.015 (1.000-1.030); Urobilinogen Urine 0.2 (0.2-1.0); pH Urine 5.5 (5.0-8.5)
[2023-07-17 21:11] LABS: RBC Urine 0-2 (0-2); Squamous Epithelial Cell Urine Few (None-Few); WBC Urine 0-2 (0-5)
[2023-07-17] MEDS: POTASSIUM CHLORIDE 10 MEQ/100 ML PIGGYBACK 100 MEQ IVPB (21:13)
[2023-07-17 21:30] LABS: Magnesium* 1.5 mg/dL (1.5-2.6)
== END 2023-07-17 23:10 | disposition home or self-care (01) ==
PROVIDERS: Family Medicine; Emergency Provider Emergency Medicine; PCP Internal Medicine
DX: C85.90 Non-Hodgkin lymphoma, unspecified, unspecified site (principal); R10.9 Unspecified abdominal pain; E86.0 Dehydration; E87.6 Hypokalemia
CPT/HCPCS: 36415; 74177; 80048; 80076; 81001; 83605; 83690; 83735; 85025; 86140; 87040; 95992; 96365; 96375; 99284; 99285; J1170; J3480; J7030; Q9967

== ENCOUNTER 2023-09-14 18:02 | Outpatient (CLI) | payer MEDICARE, BC, SELFPAY | END 2023-09-14 18:03 | disposition home or self-care (01) | LOC: AMB 09-16 10:34 | PROVIDERS: PCP Internal Medicine; Visit Provider Family Medicine | DX: R10.9 Unspecified abdominal pain (principal) | CPT/HCPCS: A0425; A0427 ==

== ENCOUNTER 2023-10-04 06:52 | Outpatient (CLI) | payer MEDICARE, BC, SELFPAY ==
--- OUTSIDE RECORDS SUMMARY | 2023-10-05 12:45 | XMS_ITS | Encounter Summary ---
Author Name Unknown Organization [facility] Address [address] [place] [phone] Phone Care Team Providers Care Sports Specialist Name Role Phone Unavailable Primary Care Provider Unavailabl e Reason for Visit * Reason Comments Other Encounter Details Date Type Department Care Team Description 05/24/2023 [facility] [address] [id number] Garth Sosa DO [address] [place] [id number] Other Social History Tobacco Use Types Packs/Day Years Used Date Smoking Tobacco: Never Assessed Sex and Gender Information Value Date Recorded Sex Assigned at Not on file Gender Identity Not on file Sexual Orientation Not on file COVID-19 Exposure Response Date Recorded In the last 10 days, have yo u been in contact with someone who was confirmed or suspected to have Coronavirus/COVID-19? No / Unsure 04/24/2023 6:37 AM CDT documented as of this encounter Miscellaneous Notes * Telephone Encounter - Garth Sosa DO - 05/24/2023 2:01 PM CDT Not my PCP patient needs to get refill from PCP or establish with another provider. Garth Sosa DO, 05/24/2023 2:00 PM documented in this encounter Plan of Treatment Not on file documented as of this encounter Visit Diagnoses Not on filedocumented in this encounter
--- OUTSIDE RECORDS SUMMARY | 2023-10-05 12:45 | XMS_ITS | Encounter Summary ---
Author Name Unknown Organization [facility] Address [address] [place] [phone] Phone Care Team Providers Care Retail Service Lead Merchandiser Name Role Phone Unavailable Primary Care Provider Unavailabl e Reason for Visit * Reason Comments Other Encounter Details Date Type Department Care Team Description 05/23/2023 [facility] [address] [phone] Garth Sosa, DO [address] [place] [id number] Other Social History Tobacco Use Types Packs/Day [...] AM CDT documented as of this encounter Plan of Treatment Not on file documented as of this encounter Visit Diagnoses Not on filedocumented in this encounter
--- OUTSIDE RECORDS SUMMARY | 2023-10-05 12:45 | XMS_ITS | Encounter Summary ---
Author Name Unknown Organization [facility] Address [address] [place] [id number] Phone Care Team Providers Care Elementary Science Teacher Name Role Phone Unavailable Primary Care Provider Unavailabl e Reason for Visit * Reason Comments Other Encounter Details Date Type Department Care Team Description 05/01/2023 [facility] [address] [phone] Garth Sosa, DO [address] [place] [id number] Other Social History Tobacco Use Types Packs/Day [...]
--- OUTSIDE RECORDS SUMMARY | 2023-10-05 12:45 | XMS_ITS | Clinical Summary ---
Author Name Unknown Organization [facility] Address [address] [place] [id number] Phone Care Team Providers Care Field Coil Winder Name Role Phone Unavailable Primary Care Provider Unavailabl e Source Comments [facility] is fully rolled out on [employer]. Last update 02/11/09.[facility] Allergies Active Allergy Reactions Criticality Noted Date Comments Gabapentin Rash 04/24/2023 Medications * Be aware that medications may not be up to date as of this document. Always verify current medications with patient. Medication Sig Dispensed Refills Start Date End Date Status allopurinol (ZYLOPRIM) 300 mg oral TABS Take 1 tablet (300 mg) by mouth daily. 0 Active empagliflozin (JARDIANCE) 10 mg oral tablet Take 1 tablet (10 mg) by mouth daily. 0 Active liraglutide (VICTOZA) 18 mg/3 mL subcutaneous pen Inject 0.2 mL (1.2 mg) subcutaneously daily. 0 Active simvastatin (ZOCOR) 20 mg oral TABS Take 1 tablet (20 mg) by mouth at bedtime. 0 Active tab-a-lizzeth oral tablet Take 1 tablet by mouth daily. 0 Active levothyroxine (SYNTHROID) 112 mcg oral tablet Take by mouth daily.Take 1 tablet on Mondays, Tuesdays, and Wednesdays and 2 tabs on , Saturday, Saturday, and Saturday 0 Active lisinopril-hydroCH LOROthiazide 20-25 mg (ZESTORETIC) 20-25 mg oral TABS tablet Take 1 tablet by mouth daily. 0 04/27/2023 Active acetaminophen 325 mg oral tablet Take 1 tablet (325 mg) by mouth 3 times daily as needed for Fever or Mild Pain. 30 tablet 0 04/27/2023 Active pantoprazole (PROTONIX) 40 mg oral tablet Take 1 tablet (40 mg) by mouth twice daily. 30 tablet 1 04/27/2023 Active prochlorperazine (COMPAZINE) 10 mg oral TABS Take 1 tablet (10 mg) by mouth every 6 hours as needed for Nausea/Vomiting. 28 tablet 0 04/27/2023 Active metoprolol tartrate (LOPRESSOR) 25 mg oral tablet Take 0.5 tablets (12.5 mg) by mouth twice daily. 30 tablet 0 04/27/2023 Active Active Problems Problem Noted Date Diagnosed Date Sepsis associated hypotension 04/24/2023 Social History Tobacco Use Types Packs/Day Years Used Date Smoking Tobacco: Never Assessed Sex and Gender Information Value Date Recorded Sex Assigned at Not on file Gender Identity Not on file Sexual Orientation Not on file Last Filed Vital Signs Vital Sign Reading Time Taken Comments Blood Pressure 119/63 04/27/2023 10:00 AM CDT Pulse 85 04/27/2023 10:00 AM CDT Temperature 36.6 ??C (97.9 ??F) 04/27/2023 7:53 AM CD T Respiratory Rate 18 04/27/2023 7:53 AM CDT Oxygen Saturation 100% 04/27/2023 10: 00 AM CDT Inhaled Oxygen Concentration - - Weight 86.6 kg (190 lb 14.7 oz) 04/24/2023 5:00 PM CDT Height 175.3 cm (5' 9.02) 04/24/2023 5:00 PM CD T Body Mass Index 28.18 04/24/2023 5:00 PM CDT Plan of Treatment Health Maintenance Due Date Last Done Comments CT Colonography 1948 Colonoscopy 1948 Colorectal Cancer Screening 1948 Dental Oral Exam 1948 Dental Prophylaxis 1948 Dental X-Ray: Bitewings 1948 FIT/Cologuard 1948 Hepatitis C Screening 1948 Sigmoidoscopy 1948 iFOB/FIT 1948 Diabetic Education Protocol (CDE) 1949 Diabetic Education 1949 Diabetic Eye Exam 1949 Diabetic Foot Exam 1949 Diabetic Lab Protocol 1949 Diabetic Microalbumin Screening 1949 Periodontal Maintenance 1962 Medicare Annual Wellness 1966 PREVENTATIVE VISIT 1966 HEALTH MAINTENANCE PROTOCOL 12/26/1967 Abdominal Aortic Aneurysm (AAA) Screening 2013 Osteoporosis Screening (Dexa Scan) 2013 INFLUENZA VACCINE 04/09/2023 07/30/2022, , 07/27/2019, Additional history exists COVID-19 Vaccine ( season) 2023 08/09/2022, 06/30/2021, 11/29/2020, Additional history exists Diabetic HGB A1C Q 6 Months (Goal <7) 10/25/2023 04/24/2023, 01/15/2023, 01/15/2023, Additional history exists Lipid Screening 07/18/2027 07/18/2022, 12/2020, 07/26/2020, Additional history exists TD/TDAP ADULTS 12/26/2032 12/26/2022, 02/07, 09/10/2008, Additional history exists PNEUMOCOCCAL IMMUNIZATION > 65 YRS Completed 09/11/2011, 07/16/2006 HIB Aged Out No longer eligi ble based on patient's age to complete this topic HPV Aged Out No longer eligi ble based on patient's age to complete this topic Hepatitis B Vaccines Aged Out No long er eligible based on patient's age to complete this topic RSV Immunoglobulin Aged Out No longer eligible based on patient's age to complete this topic Advance Directives For more information, please contact: [phone] Latest Code Status on File Code Status Date Activated Date Inactivated Comments Full Code 04/24/2023 4:32 AM 04/27/2023 5:00 PM Question Answer Comments Does the Patient have prefer ences regarding life sustaining measures (these options only apply when the patient has a pulse): No Discussed Code Status With Whom? Not discussed
--- OUTSIDE RECORDS SUMMARY | 2023-10-05 12:46 | XMS_ITS | Encounter Summary ---
Author Name Unknown Organization [facility] Address [address] [place] [phone] Phone Care Team Providers Care Lead Maintenance Technician Name Role Phone Unavailable Primary Care Provider Unavailabl e Reason for Referral * Consult/Test/Treat (Urgent) - New Request Specialty Diagnoses / Procedures Referred By Contac t Referred To Contact Diagnoses Sepsis associated hypotension () Duodenal mass Cole Ashraf MD [address] [place] [address] PATIENT CHOICE Referral ID Status Reason Start Date Expiration Date V isits Requested Visits Authorized [id number] New Request 04/27/2023 04/27/2024 1 1 * Consult/Test/Treat (Urgent) - New Request Specialty Diagnoses / Procedures Referred By Contac t Referred To Contact Physical Therapy / PHYSICAL THERAPY Diagnoses Sepsis associated hypotension () Duodenal Cole Rick MD [address] [place] [id number] PATIENT CHOICE Referral ID Status Reason Start Date Expiration Date V isits Requested Visits Authorized [id number] New Request 04/27/2023 04/27/2024 1 1 Reason for Visit * Reason Comments Abdominal Pain * Auth/Cert (Routine) Specialty Diagnoses / Procedures Referred By Contac t Referred To Contact MEDICINE CRITICAL CARE Diagnoses Sepsis associated hypotension () Swapna Whitney MD [address] [place] [phone] [facility] [address] [place] [address] Referral ID Status Reason Start Date Expiration Date Visits Re quested Visits Authorized [id number] 1 1 Encounter Details Date Type Department Care Team Description 04/23/2023 11:58 PM CDT - 04/27/2023 1:55 PM CDT Hospital Encounter [facility] Medicine [address] [place] [address] Mik Ramos MD [address] [place] [address] Swapna Whitney MD [address] [place] [phone] Cole Ashraf MD [address] [place] [phone] Sepsis associated hypotension () Discharge Disposition: Discharged to home or self care (routine discharge) Social History Tobacco Use Types Packs/Day Years [...] AM CDT documented as of this encounter Last Filed Vital Signs Vital Sign Reading [...] Mass Index 28.18 04/24/2023 5:00 PM CDT documented in this encounter Discharge Summaries * Cole Ashraf MD - 04/27/2023 11:05 AM CDT MEDICINE DISCHARGE SUMMARY Hola Burnette : 1950 Sex: male Date of Admission: 04/23/2023 Date of Discharge: 04/27/2023 Disposition: Home/Self Care Primary Care Physician: No primary care provider on file. BRIEF SUMMARY OF HOSPITALIZATION: Hola Burnette is a 72 y.o. male with PMH significant for HTN, DM type 2, iatrogenic hypothyroidism, CONNIE who transferred from outside hospital for nausea, vomiting and weakness with concern for septic shock on norepinephrine presumably from a GI source. He was admitted on 04/23 and was initially sent to the ICU for acute care. He was initially placed on zosyn, but antibiotics were removed as therewas no clear source of infection and patient improved clinically. The patient was weaned off pressors and transferred to the general medicine floor for further management on 04/24/23. CT C/A/P showed duodenal thickening and CBD dilation overall concerning for malignancy. An EGD with biopsy was performed revealing necroinflammatory (ulcer) debris and duodenal mucosa with acute and chronic inflammation, with no overt evidence of malignancy. However on imaging there was lymphadenopathy of the paraduodenal and superior mesenteric lymph nodes noted as well as splenomegaly. Aside from nasuea and vomiting on 04/26/23 (which was managed medically) the patient remained HDS and VSS since transfer to the floor. On 04/27/23 patient was medically ready for discharge. HOSPITAL COURSE BY PROBLEM: Duodenal thickening CBD dilation New onset moderate volume emesis on 04/26/23 Pt was febrile and hypotensive at OSH but he did meet sepsis criteria; however unable to further specify. It is possible that any initial sepsis resolved after admission to [facility]. CT and US did not show any evidence of cholecystitis or other signs of infection. The urinalysis was unremarkable. It ispossible that patient had viral gastroenteritis leading to his mild fever and hypotension that has s feliciano resolved. Since arrival to [facility], he has been afebrile and pressor requirements have improved, and since transferring to the floor, the patient has been off pressors and antibiotics. The overall picture is concerning for malignancy, with lymphoma high on differential per radiology. He has multiple risk factors for lymphoma, including a 46-year smoking history, drinks 1-2 beers per week and a remote personal and familial history of thyroid condition (uncertain exact diagnosis). EGD was completed on 04/24/23 with biopsies taken for analysis. Recent gastric lab results including LFTs reveal lipase low at 12, LFT's ALP 226, ALT 65, AST 85, T bilirubin 0.5, D bilirubin 0.3. Biopsy results on 04/26/23 revealed necroinflammatory (ulcer) debris and duodenal mucosa with acute and chronic inflammation; CMV immunohistochemistry is negative; no evidence of overt malignancy from the tissue samplesanalyzed. Patient had moderate volume emesis (500mL) on 04/26/23. Patient also endorsing abdominal pain and inability to keep solid foods down. CT abdomen pelvis concerning for multiple enlarged paraduodenal and superior mesenteric lymph nodes as well as splenomegaly. -GI followed, appreciated recs -Hem/onc followed, appreciated recs -Considered CT neck for cervical lymph node characterization, which can be followed up with PCP or at [facility] -Considered laprascopic biopsy vs repeat EGD with biopsy for assessing superior mesenteric nodes, which can be followed up with PCP or at [facility] -Prescribed Zofran with meals and Compazine for nausea/vomiting upon discharge. -Recommended liquid diet while symptomatic upon discharge, can advance as tolerated -Continued Daily PPI at discharge Acute kidney injury, resolved Uncertain baseline, elevated to 1.51 on admission. 1.03 on 04/27/23 day of discahrge. This was likely pre-renal given recent emesis. Duiring hospital course, we obtained daily BMP, monitored Creatinine closely, and avoided nephrotoxic medications Concern for prostatitis The patient was noted to have tenderness on BRUCE while in ED, however there was no evidence seen on imaging and urinalysis did not show any evidence of infection. Follow up with PCP outpatient. Type 2 diabetes mellitus On victoza and metformin 1g daily. 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 Upon discharge, stop taking metformin, and resume victoza and Jardiance. Hypertension The patient is on combination lisinopril and HCTZ (Zestoretic SOFT SUGAR CUTTER. During hospitalization, we held home BP meds given soft BP's during admission. Upon discharge, continue combination Lisinopril and HCTZ (Zestoretic), but only take one tablet perday); stop lebatolol, and start metoprolol tartrate. CONNIE on CPAP Continued CPAP at discharge Malnutrition Malnutrition Characteristics Etiology: Chronic illness Energy Intake: < or equal to 50% for > or equal to 5 days Weight loss:: 10% x 6 months Body fat:: WNL Muscle mass:: mild depletion Fluid accumulation:: None Malnutrition Diagnosis: Malnutrition of a moderate degree Weight: 86.6 kg (190 lb 14.7 oz) Wt Change from Previous: 0 Kg Wt Change from Admit: -2.71 Kg % Wt Change from Adm: -3.02 % [place] Body Wt (IBW) Male (kg): 70.74 kg PERTINENT STUDIES & CONSULTS: Chest X ray 04/24/23 IMPRESSION Impression: No acute pulmonary opacity. Unchanged mild chronic interstitial opacities. CT A/P with IV contrast 04/24/23 Impression: 1. Nonobstructive masslike thickening of the duodenum. This predominantly involves the third part of the duodenum and extends to the second part of the duodenum near the ampulla, which may explain the mildly dilated common bile duct and distended gallbladder. Recommend correlation with endoscopy. 2. Mild splenomegaly. 3. Mild chronic interstitial pulmonary fibrotic changes. No acute pulmonary opacities. 4. Coronary artery, aortic valve, and mitral annulus calcifications. 5. Sequelae of chronic urinary bladder outlet obstruction, likely related to BPH. CT Head no IV contrast 04/24/23 Impression: 1. No acute intracranial abnormality. Contrast-enhanced MRI is more sensitive for metastatic disease. 2. Mild chronic small vessel ischemic disease, with chronic lacunar infarction left thalamus. EGD with biopsy 04/24/23 Path report: necroinflammatory (ulcer) debris and duodenal mucosa with acute and chronic inflammation; CMV immunohistochemistry is negative; no evidence of malignancy PENDING TESTS RESULTS: N/A RECOMMENDATIONS AND FOLLOWUP: We are holding your Aspirin for one week until you follow up with your PCP. We are concerned that it may put you at higher risk of bleed since you just had a procedure completed and have an area in your small intestine that is at risk for bleeding. -We are stopping your Lebatolol and transitioning you to metoprolol tartrate. This medication will help insure your heart does not beat too fast but will not cause your blood pressure to decrease dramatically. Talk to your primary care doctor about the need to restart this medication. -We are prescribing Zofran with meals and compazine as needed ofnausea and vomiting. We also recommend starting a liquid diet to help see if this improves your symp toms. -We are prescribing Protonix twice a day for you. This will help decrease risk of bleeding inyour GI tract. - Finally we are decreasing your lisinopril- Hydrochlorothiazide from two pills a dayto one. With your risk of bleeding we do not want to put you at higher risk of dramatically lowering your blood pressure. -Follow up with your PCP regarding your recent hospitalization at [facility] (see below, Planned discharge instructions, recommendation to your outside provider) No future appointments. PHYSICAL EXAMINATION: BP 119/63 Pulse 85 Temp 36.6 ??C (97.9 ??F) (Tympanic) Resp 18 Ht 1.753 m (5' 9.02) Wt 86.6 kg (190 lb 14.7 oz) SpO2 100% BMI 28.18 kg/m?? Estimated body mass index is 28.18 kg/m?? as calculated from the following: Height as of this encounter: 1.753 m (5' 9.02). Weight as of this encounter: 86.6 kg (190 lb 14.7 oz). Physical Exam General: Alert, Comfortable, NAD Head: Atraumatic, Normocephalic Ears: Hearing grossly intact Eyes: Conjunctiva clear, sclera non-icteric, PERRLA, EOMI Oropharynx: Moist mucous membranes Abdomen: Bowel sounds normoactive, normotympanic, mildly tender to palpation LLQ/RLQ, soft, mildly distended x 4, no rigidity, guarding, rebounding present Resp.: CTAB, normal respiratory effort, no wheezing, rales rhonchi present CV: RRR, no M/R/G Extremities: Moving all four extremities without difficulty, warm and well perfused, no edema Neuro: A/O x 3, no focal neurological deficits Psych: Cooperative, normal affect PLANNED DISCHARGE ORDERS: Discharge Procedure Orders Referral to Physical Therapy Referral Priority: Urgent Referral Type: Consult/Test/Treat Referral Location: PATIENT CHOICE Requested Specialty: Physical Therapy Number of Visits Requested: 1 Expiration Date: 04/27/24 Referral to Occupational Therapy Referral Priority: Urgent Referral Type: Consult/Test/Treat Referral Location: PATIENT CHOICE Number of Visits Requested: 1 Expiration Date: 04/27/24 Why you were at the hospital: Order Comments: Nausea, vomiting, and weakness concerning for septic shock. When should I be concerned? Order Comments: Go to the Emergency Department or call 911 IF: -- you have worsening unsteadiness on feet, chest pain, shortness of breath, dizziness, or severe headache -- you have pain that is not controlled by medicine, rest, elevation, or ice -- you have redness, swelling, or severe pain in one or both of your legs -- you feel you are getting worse or having an increase in problems -- you have worsening dizziness, bleeding, or other concerns -- you have not been able to eat or drink consistently Please call [phone] [phone]) to schedule an [facility] appointment at the [facility] if -- you have worsening unsteadiness on feet, chest pain, shortness of breath, dizziness, or severe headache -- you have pain that is not controlled by medicine, rest, elevation, or ice -- you have redness, swelling, or severe pain in one or both of your legs -- you feel you are getting worse or having an increase in problems Please keep the appointments that have already been made. Order Comments: -- Please keep the appointments that have already been made. Recommendations for the Outpatient Provider: Order Comments: Dr. Smalls, We here at [facility] had the pleasure of taking care of Mr. Burnette, and wanted to insure close follow up of his results. The first most important thing being his mass in his duodenum. These are the belowrecommendations from our oncologists: We were contacted by the primary team regarding duodenal mass/wall thickening seen on CT concerningfor malignancy, lymphoma being high on differential. He also has multiple enlarged paraduodenal andsuperior mesenteric lymph nodes. Spleen mildly enlarged, unclear etiology but favoring infarct. He underwent EGD and biopsy. Per path report, Necroinflammatory (ulcer) debris and duodenal mucosa with acute and chronic inflammation. CMV immunohistochemistry is negative. No evidence of malignancy. - Suggest checking with radiology if there are any axillary lymph nodes on his CT. - Consider CT neck for cervical lymph nodes as biopsying these peripheral lymph nodes would be relatively simpler. - Will need biopsy of either the superior mesenteric lymph nodes (via laparoscopic biopsy) or re-biopsy the duodenal mass for further diagnostic work up. Mr. Burnette would like to follow up with [facility] for these concerns and we have sent his results and paperwork to your clinic. We also recommend re-evaluating medication changes including BP medications and aspirin. We also would request you recheck his hemoglobin, there had been concern of a GI bleed and his Hemoglobin has been stable around 8-9. Finally would recommend he follow up with GI, Heme-onc, and surgery vs IR for further biopsies. Thank you, Dr. Sosa Up as tolerated activity level. Order Comments: UP TOLERATED -- Rest is an important part of healing. Save your energy by spreading out activities that make youtired. Rest as needed. -- Slowly increase your level of activity. Full Liquid Diet Order Comments: -- You may advance to soft diet in 3-5 days if you are able to tolerate the liquid diet without worsening abdominal pain or nausea/vomiting. You may then advance your det to regular/advance as tolerated if you are not having worsening abdominal pain or nausea/vomiting. -- You may eat pulp-free juice, gelatin, coffee, soda, broths, teas and Popsicles??. -- You may also eat dairy products (milk, yogurt, pudding). -- Good foods for a full-liquid diet include milk, ice cream, thinned cooked cereals, puddings, custards, strained soups, and juices. -- You may drink nutritional supplements like Ensure?? or Boost??. Information about medicines that were stopped or changed Order Comments: Reasons medications were stopped or changed: - We are holding your Aspirin for one week until you follow up with your PCP. We are concerned thatit may put you at higher risk of bleed since you just had a procedure completed and have an area inyour small intestine that is at risk for bleeding. -We are stopping your Lebatolol and transitioning you to metoprolol tartrate. This medication will help insure your heart does not beat too fast but will not cause your blood pressure to decrease dramatically. Talk to your primary care doctor about the need to restart this medication. -We are prescribing Zofran with meals and compazine as needed of nausea and vomiting. We also recommend starting a liquid diet to help see if this improves your symptoms. -We are prescribing Protonix twice a day for you. This will help decrease risk of bleeding in your GI tract. - Finally we are decreasing your lisinopril-Hydrochlorothiazide from two pills a day to one. With your risk of bleeding we do not want to put you at higher risk of dramatically lowering your blood pressure. Take your medicine and plan ahead for refills Order Comments: - It is important that you take the medicines on your list. Work with your health care provider or pharmacist if you have questions about your medicine. - Plan ahead and use the Refill Line so that you don't run out of your medicine. It may take time to review your chart and get the medicine ordered. Medication List START taking these medications acetaminophen 325 mg tablet Take 1 tablet (325 mg) by mouth 3 times daily as needed for Fever or Mild Pain. metoprolol tartrate 25 mg tablet Commonly known as: LOPRESSOR Take 0.5 tablets (12.5 mg) by mouth twice daily. ondansetron 4 mg Tabs Commonly known as: ZOFRAN Take 1 tablet (4 mg) by mouth 3 times daily with meals for 5 days. pantoprazole 40 mg tablet Commonly known as: PROTONIX Take 1 tablet (40 mg) by mouth twice daily. prochlorperazine 10 mg Tabs Commonly known as: COMPAZINE Take 1 tablet (10 mg) by mouth every 6 hours as needed for Nausea/Vomiting. CHANGE how you take these medications lisinopril-hydroCHLOROthiazide 20-25 mg 20-25 mg Tabs tablet Commonly known as: ZESTORETIC Take 1 tablet by mouth daily. What changed: how much to take CONTINUE taking these medications allopurinol 300 mg Tabs Commonly known as: ZYLOPRIM empagliflozin 10 mg tablet Commonly known as: JARDIANCE levothyroxine 112 mcg tablet Commonly known as: SYNTHROID liraglutide 18 mg/3 mL pen Commonly known as: VICTOZA simvastatin 20 mg Tabs Commonly known as: ZOCOR tab-a-lizzeth tablet STOP taking these medications aspirin (ASA EC) 81 mg tablet labetalol 100 mg Tabs Commonly known as: TRANDATE metFORMIN 1000 mg tablet Commonly known as: GLUCOPHAGE Where to Get Your Medications These medications were sent to [id number] [place] [address] - [phone] - [address] [facility] [address] [facility] [id number] acetaminophen 325 mg tablet metoprolol tartrate 25 mg tablet ondansetron 4 mg Tabs pantoprazole 40 mg tablet prochlorperazine 10 mg Tabs Information about where to get these medications is not yet available Ask your nurse or doctor about these medications lisinopril-hydroCHLOROthiazide 20-25 mg 20-25 mg Tabs tablet Discussed diagnosis and treatment plan with the patient. Patient verbalized understanding of condition and treatment plan. Planned readmission in the next 30 days: Pooja Low D.O., Ph.D. Internal Medicine, PGY1 04/27/23 11:56 .DISCHARGE FACULTY NOTE On the date of discharge, I personally participated in the final examination and review of hospitalization and concur with the discharge plans and follow-up as outlined. I discussed with the residentand agree with the resident???s findings and plan documented in the resident???s note from above. Any revisions by me are documented. 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 It is also recommended that you use a shower chair for bathing or showering to help you conserve your energy and to make it safer when you bathe. Having grab bars around the tub or shower you use mayalso be helpful. When using a shower chair, most people like to install a hand held shower head to use in addition to the other equipment documented in this encounter Medications at Time of Discharge Medication Sig Dispensed Refills Start Date End Date lisinopril-hydroCHLOR Othiazide 20-25 mg (ZESTORETIC) 20-25 mg oral TABS tablet Take 1 tablet by mouth daily. 0 04/27/2023 acetaminophen 325 mg oral tablet Take 1 tablet (325 mg) by mouth 3 times daily as needed for Fever or Mild Pain. 30 tablet 0 04/27/2023 pantoprazole (PROTONIX) 40 mg oral tablet Take 1 tablet (40 mg) by mouth twice daily. 30 tablet 1 04/27/2023 prochlorperazine (COMPAZINE) 10 mg oral TABS Take 1 tablet (10 mg) by mouth every 6 hours as needed for Nausea/Vomiting. 28 tablet 0 04/27/2023 metoprolol tartrate (LOPRESSOR) 25 mg oral tablet Take 0.5 tablets (12.5 mg) by mouth twice daily. 30 tablet 0 04/27/2023 allopurinol (ZYLOPRIM) 300 mg oral TABS Take 1 tablet (300 mg) by mouth daily. 0 empagliflozin (JARDIANCE) 10 mg oral tablet Take 1 tablet (10 mg) by mouth daily. 0 liraglutide (VICTOZA) 18 mg/3 mL subcutaneous pen Inject 0.2 mL (1.2 mg) subcutaneously daily. 0 simvastatin (ZOCOR) 20 mg oral TABS Take 1 tablet (20 mg) by mouth at bedtime. 0 tab-a-lizzeth oral tablet Take 1 tablet by mouth daily. 0 levothyroxine (SYNTHROID) 112 mcg oral tablet Take by mouth daily.Take 1 tablet on Mondays, Tuesdays, and Wednesdays and 2 tabs on , Saturday, Saturday, and Saturday 0 ondansetron (ZOFRAN) 4 mg oral TABS Take 1 tablet (4 mg) by mouth 3 times daily with meals for 5 days. 15 tablet 0 04/27/2023 05/02/2023 documented as of this encounter Progress Notes * Jameel Olvias RN - 04/27/2023 1:55 PM CDT DISCHARGE NOTE D: Patient has been discharged. A: (As documented in the Discharge Planning Flowsheet) Discharge Instructions (AVS): AVS given Discharge clothing/valuables: has adequate clothing Discharge medications: patient will fill own prescriptions elsewhere Home equipment status: no equipment needed Home equipment/supplies recommended: none Final discharge destination: Home or self care R: The patient understood the AVS. P: Support patient if they call back with questions. * Chase Hilario - 04/27/2023 12:36 PM CDT SPIRITUAL CARE VISIT SUMMARY Hola Burnette : 1950 Sex: male LOS: 3 days Reason for visit: Follow Up Assessment: Pt/family uncertain/anxious/frustrated;Pt/family coping/relieved Intervention: Compassionate support Outcome: Situation assessed;Gratitude expressed Notes: Stopped by to visit pt, who informed me he was about ready to discharge home. Talked brieflyabout next steps -- meeting with his family doctor to assess findings from here and then going to [facility] in [place] for future care. Discussed how travel from [place] to [facility] vs. [place] to [place] is about the same. Met partner Rhona, who was just coming off of a [place] [employer] adventure. Wished pt well and that our team continues to send him thoughts and prayers in his journey. Pt and Rhona thanked me for the visit. Plan: Spiritual Care Team is available to support patient and family as needed via pager [phone]. Chase Hilario, 04/27/2023 12:36 PM Pager: [phone] * Judy Bragg OTR/Lakshmi - 04/27/2023 10:59 AM CDT Occupational Therapy Progress Note 04/27/2023 OT Discharge Recommendations Discharge Recommendations: Safe for discharge to home/community/prior residence. Barriers to Discharge (OT): None - barriers are resolved and patient is now safe to DC home from OT standpoint Post Discharge Follow-up: Home OT to address: (*) Supervision / Assistance Recommended (for home DC): Supervision / Assistance recommended for Home DC (OT): Yes Level of supervision recommended (OT): Close supervision (within line of site e.g., in the same room) Supervision recommended for (OT): All ADL's (basic self-cares) and IADL's (e.g. medication management, money management, meal prep, grocery shopping, etc.) Physical assistance recommended for (OT): IADL's;Bathing Anticipated duration of physical assistance (OT): 1-2 weeks Equipment Recommended: None - Pt has all equipment needed Equipment Status: OT In-patient follow-up / recommended referrals: D/C skilled OT services as met goals during session Precautions/Restrictions: Activity Level: Up Ad Nicole (04/25/23 0753) SUBJECTIVE: I had a bad night but I still think I should be able to go home now that Rhona is back Pain Pain Rating With Activity (Numeric): (Some abdominal discomfort today) Participation Significantly Limited?: No Action Taken: Patient states no intervention needed, pain is tolerable OBJECTIVE: Pt is supine upon arrival to room Alert, agreeable to OT despite reporting bad night again with nausea and vomiting Pt with 1 bout of nausea during OT session otherwise no complaints other than intermittent dizziness with position changes (essentially unchanged from baseline/home) Vital Signs 04/27/2023 0753 04/27/2023 0950 04/27/2023 1000 BP: 102/52 117/52 119/63 Patient Position for BP: Lying Down Sitting After activity Pulse: -- 68 85 SpO2: -- 99 % 100 % Activities of Daily Living Grooming: Modified independence Grooming Comments: Pt is able to complete tasks while standing at sinkside today Toileting: Modified independence Toileting Comments: Able to manage clothing Functional Mobility Supine to/from Sit: Modified independence Sit to/from Stand : Supervision/Stand by assist Sit to/from Stand - Method: w/ Assistive device;From standard seat height (FWW) Toilet Transfer: Modified independence Toilet Transfer- Method: Grab bar Bed to Bathroom: Supervision/Stand by assist Bed to Bathroom- Method: Front wheeled walker Functional Mobility in Room: Supervision/Stand by assist Functional Mobility in Room- Method: Front wheeled walker Cognition Mental Status: Alert;Oriented x 3;Cooperative;Follows 1 step direction Delirium assessment: Confusion Assessment Method (CAM) Delirium prevention / intervention appears indicated? No. Patient / Caregiver Training: Caregiver Training Status (OT): Completed Caregiver Training Comments (OT): Pt's partner Rhona present at end of session--reviewed all recommendations for ADLs within home, energy conservation strategies, rec use of DME (eg shower chair). Rhona able to verbalize understanding Interdisciplinary Communication: RN: Ok to see patient for OT MD: OT D/C recs ASSESSMENT: Pt able to tolerate similar ADL activity today without loss of balance or significant dizziness. Pt still bothered by intermittent nausea and does continue to endorse fatigue. Ongoing education provided re: energy conservation and new teaching completed today with patient's caregiver (partner Rhona). Pt will have 24 hr assist/supervision for ADLs and IADLs as needed along with additional support from neighbors and/or other friends. If patient is deemed medically ready for D/C today, OT can support discharge with recommendations listed in box above PLAN: D/C inpatient OT: Total treatment time: 25 minutes OT interventions and time spent on each: Self care/Home mgmt/ADL: 25 minutes Judy Bragg OTR/L Pager: [facility] OT Department Problem: Loss of [place] With ADLs, Risk for Goal: Will complete upper body dressing Description: Patient will complete upper body dressing with Modified [place] (6). Outcome: Met Goal: Will complete lower body dressing Description: Patient will complete lower body dressing with Modified [place] (6). Outcome: Met Goal: Will toilet self Description: Patient will toilet self with Modified [place] (6). Outcome: Met Goal: Patient-specific goals Description: Individualized patient goal: Pt will tolerate at least 10 minutes of out of bed functional activity to demonstrate overall increase in activity tolerance for daily activities Outcome: Met * Cele Quinonez MD - 04/26/2023 3:15 PM CDT Brief oncology note: We were contacted by the primary team regarding duodenal mass/wall thickening seen on CT concerningfor malignancy, lymphoma being high on differential. He also has multiple enlarged paraduodenal andsuperior mesenteric lymph nodes. Spleen mildly enlarged, unclear etiology but favoring infarct. He underwent EGD and biopsy. Per path report, Necroinflammatory (ulcer) debris and duodenal mucosa with acute and chronic inflammation. CMV immunohistochemistry is negative. No evidence of malignancy. - Suggest checking with radiology if there are any axillary lymph nodes on his CT. - Consider CT neck for cervical lymph nodes as biopsying these peripheral lymph nodes would be relatively simpler. - I have asked IR if core biopsy of one of the superior mesenteric lymph nodes is feasible. Addendum: per IR, these nodes are not accessible percutaneously, so will need laparoscopic biopsy vs re-biopsy the duodenal mass for further diagnostic work up. Discussed with Cele Nunes MD, 04/26/2023 3:22 PM Hematology fellow, PGY4 Pager: [phone] or [employer] Associated attestation - Miguel Stanley MD - 04/26/2023 4:23 PM CDT FACULTY NOTE I saw and evaluated the patient on the date of the resident's note. I discussed with the resident and agree with the resident???s findings and plan documented in the resident???s note from above. Anyrevisions by me are documented. Miguel Stanley MD, 04/26/2023 4:23 PM * Cole Ashraf MD - 04/26/2023 1:12 PM CDT MEDICINE PROGRESS NOTE Hola Burnette : 1950 Sex: male Patient Summary: 72 y.o. man admitted with N/V and hypotension. Xfer here for possible sepsis, sent to ICU and EGD/CT showed duodenal mass. Now awaiting biopsy resutls. Assessment & Plan: Abd mass leading to CBD dilation Pt was febrile and hypotensive at OSH but currently w/o evidence of sepsis -off of abx -giving PPI and nausea medication Acute kidney injury, improved -probably pre-renal azotemia Concern for prostatitis Noted to have tenderness on BRUCE while in ED, however no evidence seen on imaging and urinalysis didnot show any evidence of infection. Type 2 diabetes mellitus On victoza and metformin 1g daily. ? Hold SOFT SUGAR CUTTER regimen, Continue LDSSI while in hospital Hypertension On lisinopril and HCTZ SOFT SUGAR CUTTER. ? Hold home BP meds given soft BP's CONNIE on CPAP ? Continue CPAP Await improvement in nausea/weakness prior to d/c Subjective/Events of Past 24 Hours: Events- had more N/V after eating chicken overnight Had some loose and dark stools Hospital Day: 3 Reports abd feeling better today but some ongoing nausea Objective: BP 108/56 Pulse 105 Temp 36.7 ??C (98 ??F) (Oral) Resp 18 Ht 1.753 m (5' 9.02) Wt 86.6 kg (190 lb 14.7 oz) SpO2 98% BMI 28.18 kg/m?? Physical Exam General: Alert, comfortable HEENT- mild pallor noted CV- RRR Clear lungs Abd soft, some distention, minimal TTP Neuro- alert Labs reviewed Lab Results Component Value Date WBC 3.30 (L) 04/26/2023 RBC 3.51 (L) 04/26/2023 HGB 8.3 (L) 04/26/2023 HCT 27.2 (L) 04/26/2023 PLT 170 04/26/2023 Cole Ashraf MD, 04/26/2023 1:12 PM * Judy Bragg, OTR/L - 04/26/2023 11:04 AM CDT Occupational Therapy Progress Note 04/26/2023 OT Discharge Recommendations Discharge Recommendations: Safety risk for discharge home today. Anticipate functional limitations will be resolved/addressed (see assessment in note). Barriers to Discharge (OT): Motor/physical impairments pose safety risk for DC home Post Discharge Follow-up: Home OT to address: (*) Supervision / Assistance Recommended (for home DC): Supervision / Assistance recommended for Home DC (OT): Yes Level of supervision recommended (OT): Close supervision (within line of site e.g., in the same room) Supervision recommended for (OT): Upper body dressing;Lower body dressing;Toileting Physical assistance recommended for (OT): IADL's;Bathing Equipment Recommended: None - Pt has all equipment needed Equipment Status: OT In-patient follow-up / recommended referrals: Continue skilled OT services to achieve the goals on the plan of care / maximize safety and independence with ADL's / IADL's: - Recommended Frequency: 5x / week - Anticipated Duration of OT services: throughout hospital stay Precautions/Restrictions: Activity Level: Up Ad Nicole (04/25/23 0753) SUBJECTIVE: I'm not feeling great today. I don't have any sharp pain in my stomach but something is there. I've been nauseous for most of the morning too Rhona is going to get back today but it's not going to be until later tonight. I think if she gets a good nights sleep tonight and I feel better tomorrow, I'll be able to get back home Pain Pain Rating With Activity (Numeric): (Doesn't rate) Location: abdominal discomfort Action Taken: Nursing aware and addressing OBJECTIVE: Pt is supine upon arrival to room. Daughter Carolee at bedside Chart reviewed-patient had nausea/vomiting overnight. Hgb 8.0 (down from 8.5 earlier). Hgb 8.3 thisam Vital Signs 04/26/2023 0220 04/26/2023 0721 04/26/2023 1101 BP: 108/56 Patient Position for BP: After activity Pulse: 105 SpO2: 98 % Activities of Daily Living Grooming: Supervision/Stand by assist Grooming Comments: Standing at sinkside-pt was able to brush his teeth, wash his face and wash his hands. Does appear to have a mild postural sway 1-2 times but no overt SOB Functional Mobility Supine to/from Sit: Supervision/Stand by assist Sit to/from Stand : Supervision/Stand by assist;Verbal cues (Increased effort needed today vs yesterday w/standing) Sit to/from Stand - Method: w/ Assistive device;From standard seat height (FWW) Toilet Transfer: Modified independence Toilet Transfer- Method: Grab bar Bed to Bathroom: Supervision/Stand by assist Bed to Bathroom- Method: Front wheeled walker Cognition Mental Status: Alert;Cooperative;Follows 1 step direction;Oriented x 3 Delirium assessment: Confusion Assessment Method (CAM) Delirium prevention / intervention appears indicated? No. Interdisciplinary Communication: RN: OK to see patient PT: D/C recommendations MD: OT D/C recs for today ASSESSMENT: Pt appears more fatigued today. Requiring more time with all activities d/t nausea withmovement (no vomiting during OT session) and mild dizziness. Pt reports he would have 24 hr assistance until later this evening when partner arrives from out of state trip. Briefly discussed TCU vs ho me--patient prefer D/C home with significant other. Pt may benefit from additional therapy prior toD/C home over weekend This patient will continue to benefit from skilled OT services for ADL retraining and functional mobility to maximize independence and safety with ADLs. PLAN: Continue skilled OT services to achieve the goals on the plan of care: Plan For Next OT Session: --Standing ADLs Total treatment time: 25 minutes OT interventions and time spent on each: Self care/Home mgmt/ADL: 25 minutes Judy Bragg OTR/L Pager: [facility] OT Department Problem: Loss of [place] With ADLs, Risk for Goal: Will complete upper body dressing Description: Patient will complete upper body dressing with Modified [place] (6). Outcome: In progress Goal: Will complete lower body dressing Description: Patient will complete lower body dressing with Modified [place] (6). Outcome: In progress Goal: Will toilet self Description: Patient will toilet self with Modified [place] (6). Outcome: In progress Goal: Patient-specific goals Description: Individualized patient goal: Pt will tolerate at least 10 minutes of out of bed functional activity to demonstrate overall increase in activity tolerance for daily activities Outcome: In progress * Valerie Rojas Jeanna, SOFT SUGAR CUTTER - 04/26/2023 9:45 AM CDT Physical Therapy Progress Note PT Discharge Recommendations Discharge Recommendations: Safety risk for discharge home today. Anticipate functional limitations will be resolved/addressed (see assessment in note). (anticipate pt may be able to dc in 1 adday, vs may need CONRAD if pt cont to feel ill and/or if pts SO is unable to provide 24 hour assist atminA level) (04/26/23944) Barriers to discharge to home/community: Decreased Activity Tolerance and Unconfirmed level of assistance available If discharging home, would need: 24 hr physical assistance. Post discharge follow-up: Outpatient PT recommended * (strength training, gait/balance training) (04/26/23944) Equipment Status: Patient will provide own equipment (04/26/23944) PT Equipment Recommended: Cane;Four wheeled walker (04/26/23944) S: Pt supine, alert, pts daughter just arriving. Pt c/o feeling ill and weak this am but is agreeable to gait trial. Pt states he would prefer to dc tomorrow; his SO will be returning home from out of town late tonight and pt anticipate he will be fatigued by this evening. Pain Pain Rating With Activity (Numeric): (no signs of or c/o pain; pt c/o feeling weak) Participation Significantly Limited?: No O: Mental Status Mental Status: Alert;Cooperative Follows Directions: Consistently follows commands Transfer & Bed Mobility Supine to/from Sit: Stand by assist Sit to/from Stand: Minimal assist Sit to/from Stand - Method: From standard seat height;w/ Assistive device Gait Distance (m): 30 m Device: 4-wheeled walker Assistance: Minimal assist Gait Quality (General): Slowed Gait Quality (Right side): Foot drop Sitting Static Balance Level of Assistance: Upper Extremity Support Trunk Control: Decreased core Stability Interdisciplinary Communication Family: pts daughter present for portion of rx Fall Risk Assessment: None of the above Treatment rendered: Gait training;Transfer training;Bed mobility training;Positioning;Strengthening Total treatment time: 25 minutes A: Pt participates well in PT activities today despite c/o feeling unwell today. Pt requires Jay[place] overall for sit<->stand transfers, and CGA during gait trial with use of the 4WW. Pt demos goodstability with the 4WW and reports he does have on at home that functions well. Pt reports feeling weaker, and notes his Hgb is dropping (still ~8.0 Hgb today); if pt stable and/or feeling better tomorrow pt may be ready to dc home if his SO is able to provide 24 hour assist at a level of Jaydon. If pt cont to feel more weak and/or SO is not comfortable providing this level of assist pt may benefit from a TCU stay. While inpatient patient will benefit from continued skilled PT services to progress towards goals. P: Patient will be seen 1-2x/week until goals are met or patient is discharged. Next visit the planis to work on practice transfers and gait with 4WW, teaching progressive walking program for home, DC teaching with pt/family. SOFT SUGAR CUTTER Appropriate: Yes Valerie Rojas PTA 04/26/2023 Pager: [facility] PT Dept Problem: Decreased Transfer Skills Goal: Patient will transfer supine to/from sit Description: Patient will transfer supine to/from sit with (6) Modified [place] by 04/26/23 to improve safety and level of functional independence for home with support. Outcome: In progress Goal: Patient will transfer bed to/from chair Description: Patient will transfer bed to/from chair with (6) Modified [place] with sliding board or pivot method with 4WW by 04/26/23 to improve safety and level of functional independence for home with support. Outcome: In progress Problem: Decreased Ambulatory Skills Goal: Improve gait Description: Ambulate at least 30 meters using 4- wheeled walker with (5) Supervision, Set-Up or Standby Prompting by 04/26/23 to improve safety and level of functional independence for home with support. Outcome: In progress * Mitzy Falcon RN - 04/25/2023 7:13 PM CDT Relations Director collected STAT Hgb lab @ 1912. Pt was pleasant. Results pending. Mitzy Falcon RN, 04/25/2023 7:14 PM * Chase Hilario - 04/25/2023 11:54 AM CDT SPIRITUAL CARE VISIT SUMMARY Hola Burnette : 1950 Sex: male LOS: 1 day Reason for visit: Follow Up Assessment: Pt/family coping/relieved Intervention: Compassionate support Outcome: Situation assessed;Gratitude expressed Notes: Visited pt with daughter Ann Marie at bedside. Discussed path to getting here (unable to lift himself onto his feet, even with friend's assistance... going to [facility]... then being transported here for more direct care). Compared to [facility], commended medical team for effective and efficient care received. 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 When he retired in 2009, he moved back to [place]. Ann Marie currently works in finance but was also an EMT for a brief time. Inquired as to both of their spiritual needs at this time; nothing was identified. OT came in so I stepped out; reminded them that, should any needs arise, to let someone on their medical team know and we can stop by again. Both thanked me for stopping by. Plan: Spiritual Care Team is available to support patient and family as needed via pager [phone]. Chase Hilario, 04/25/2023 11:54 AM Pager: [phone] * Dara Ruano LICSW - 04/25/2023 11:03 AM CDT Care Coordination Assessment Patient Name: Hola Burnette Date: 04/25/2023 Expected DC Date: 04/26/2023 Social Information Associate Property Manager Used: None needed Decision Maker at Admission: Self Living Situation: Home Facility Admitted From: hospital Name of facility: [facility] Patient Identified Support System: Daughter Services Receiving: None Complex Medical Needs: None Transportation Used for Discharge: Daughter Safety Concerns: None Behavioral Health Concerns: None Patient Family Goals Patient's Discharge Goal: Home Family's Discharge Goal: Home Plan/Interventions Discharge Plan: Home Patient Information Verification Verified demographic information, including SSN, Next of Kin, and Guardianship: Yes Verified PCP: Yes (PCP. Dr Callie Smalls [phone]-) Risks for Readmission: None Summary of pertinent information: SW assisting with assessments today. Bedside visit made. Dtr Carolee at bedside. Pt agreeable to speaking with SW, Pt verified demographics. Pt reports he lives at home with his sig other. Pt was f/I of all activities of daily living and driving prior to admission. Pt has a CPAP(at bedside). Pt has walker and cane for use as needed. Pt's anticipated dcp plan is to return home.Daughter will transport. No dc needs identified at the time of visit. Primary SW and RN CC will continue to monitor for needs and assist as indicated. Dara Ruano LICSW, 04/25/2023 11:08 AM * Cole Ashraf MD - 04/25/2023 6:32 AM CDT MEDICINE PROGRESS NOTE Hola Burnette : 1950 Sex: male Patient Summary: Hola Burnette is a 72 y.o. male with PMH of TIIDM, HTN, Admit on 04/24 from outside hospital with nausea, vomiting and weakness. Initially had some concern for sepsis, however pt has since been afebrile and BP has improved. CT C/A/P showed duodenal thickening and CBD dilation overall concerning formalignancy. Assessment & Plan: Duodenal thickening CBD dilation Pt was febrile and hypotensive at OSH but he does not currently meet sepsis criteria. CT and US didnot show any evidence of cholecystitis or other signs of infection. Urinalysis unremarkable. Possible that patient had viral gastroenteritis leading to his mild fever and hypotension that has since re solved. Since arrival to [facility], he has been afebrile and pressor requirements have improved and now off. Overall picture is concerning for malignancy, with lymphoma high on differential per radiology.He has multiple risk factors for lymphoma, including a 46-year smoking history, drinks 1-2 beers per week and a remote personal and familial history of thyroid condition (uncertain exact diagnosis). EGD completed on 04/24/23 with biopsies taken for analysis. -GI following, appreciate recs -Await pathology result from EGD -Fever resolved, but no elevation in WBC -stop Abx today as no clear source of infection or cholangitis. ?? Lipase low at 12, LFT's ALP 226, ALT 65, AST 85, T bilirubin 0.5, D bilirubin 0.3 ? Follow CBC, BMP ? Daily PPI Nutrition conuslt Acute kidney injury, improved Uncertain baseline, elevated to 1.51 on admission. 1.39 on 04/25/23. Likely pre- renal given recent emesis. ? Follow BMP daily Monitor Cr closely Concern for prostatitis Noted to have tenderness on BRUCE while in ED, however no evidence seen on imaging and urinalysis didnot show any evidence of infection. Type 2 diabetes mellitus On victoza and metformin 1g daily. ? Hold SOFT SUGAR CUTTER regimen, Continue LDSSI while in hospital Hypertension On lisinopril and HCTZ SOFT SUGAR CUTTER. ? Hold home BP meds given soft BP's CONNIE on CPAP ? Continue CPAP Resolved Problems: Discharge planning: TBD pending clinical improvement Subjective/Events of Past 24 Hours: Hospital Day: 2 Patient seen am 04/25/23. There were no acute events overnight.He slept well using CPAP and denies any complaints. He is anxious to get his biopsy results. He has no questions. Objective: BP 101/61 (Cuff Location: Right Arm) Pulse 87 Temp 34.8 ??C (94.7 ??F) (Oral) Resp 20 Ht 1.753 m (5' 9.02) Wt 86.6 kg (190 lb 14.7 oz) SpO2 96% BMI 28.18 kg/m?? Physical Exam General: Alert, Comfortable, NAD Head: Atraumatic, Normocephalic Ears: Hearing grossly intact Eyes: Conjunctiva clear, sclera non-icteric, PERRLA, EOMI Oropharynx: Moist mucous membranes Abdomen: Bowel sounds normoactive, normotympanic, non-tender to palpation, soft, mildly distended x4, no rigidity, guarding, rebounding present Resp.: CTAB, normal respiratory effort, no wheezing, rales rhonchi present CV: RRR, no M/R/G Extremities: Moving all four extremities without difficulty, warm and well perfused, no edema Neuro: A/O x 3, no focal neurological deficits Psych: Cooperative, normal affect Ramon Low D.O., Ph.D. Internal Medicine, PGY1 04/25/23 06:34 FACULTY NOTE I saw and evaluated the patient today, 04/25/2023. I discussed with the resident and agree with the resident???s findings and plan documented in the resident???s note from above. Any revisions by me are documented. Working with PT / OT Hold abx for now Will await path from EGD Working on safe placement Cole Ashraf MD, 04/25/2023 3:41 PM * Cole Ashraf MD - 04/24/2023 8:19 PM CDT Images from the original note were not included. Medicine Progress Note - STAFF Hola Burnette : 1950 Sex: male Patient Summary: 72 y.o. man admitted from [facility] with initial concern for sepsis, found to have duodenal mass and CBD dilatation. Awaiting path ASSESSMENT AND RECOMMENDATIONS: Duodenal mass -EGD done -await path result Possible sepsis secondary to GI soucre -did have fever, but no white count -does have mild elevated in alp but normal tbili -if fevers lyndon, will stop abx (no clear cholangitis) Profound wt loss -reports over 80 # wt loss in last year -was on GLP agent so this could be part of it, but also concern for malignancy -nutrition consult Type 2 DM Acute Kidney Injury, improved Will need PT eval with weakness Await GI results Will see if fever is improved and we can stop abx (not sure exactly what we'd be treating without cholangitis or clear biliary pathology) EVENTS: xfer out of ICU SUBJECTIVE: Reports not remembering EGD, does feel fatigued -feels urge to urinate OBJECTIVE: PHYSICAL EXAMINATION: Vital Signs: BP 119/71 Pulse 80 Temp 37.4 ??C (99.3 ??F) (Oral) Resp 20 Ht 1.753 m (5' 9.02) Wt 86.6 kg (190 lb 14.7 oz) SpO2 95% BMI 28.18 kg/m?? Gen - appears fatigued Neuro- mild confusion noted -does seem to have pill rolling of hands CV- tachycardia Clear lungs Abd distended but no TTP Skin- no jaundice REVIEW OF LABORATORY, PATHOLOGY, AND RADIOLOGY DATA: Lab results: Lab Results Component Value Date WBC 5.09 04/24/2023 RBC 3.40 (L) 04/24/2023 HGB 8.2 (L) 04/24/2023 HCT 27.8 (L) 04/24/2023 PLT 169 04/24/2023 Lab Results Component Value Date NA 140 04/24/2023 K 3.8 04/24/2023 CHLORIDE 106 04/24/2023 CO2 23 04/24/2023 GLU 100 04/24/2023 UN 28 (H) 04/24/2023 CR 1.35 (H) 04/24/2023 CA 8.1 (L) 04/24/2023 Lab Results Component Value Date/Time ALBUMIN 3.3 (L) 04/24/2023 0615 ALP 226 (H) 04/24/2023 0615 ALT 65 (H) 04/24/2023 0615 AST 85 (H) 04/24/2023 0615 BILIDIR 0.3 04/24/2023 0615 TBILI 0.5 04/24/2023 0615 TPRO 5.1 (L) 04/24/2023 0615 Cole Ashraf MD, 04/24/2023 8:19 PM documented in this encounter H&P Notes * Swapna Whitney MD - 04/24/2023 2:52 AM CDT MEDICINE ICU ADMISSION - PGY 2 Hola Burnette : 1950 Sex: male Patient Summary: Admit on 04/24 from outside hospital with nausea, vomiting and weakness. Initially had some concern for sepsis, however pt has since been afebrile and BP has improved. CT C/A/P showedduodenal thickening and CBD dilation overall concerning for malignancy. Assessment and Plan: Duodenal thickening CBD dilation Pt was febrile and hypotensive at OSH but he does not currently meet sepsis criteria. CT and US didnot show any evidence of cholecystitis or other signs of infection. Urinalysis unremarkable. Possible that patient had viral gastroenteritis leading to his mild fever and hypotension that has since re solved. Since arrival to [facility], he has been afebrile and pressor requirements have improved and now off. Overall picture is concerning for malignancy, with lymphoma high on differential per radiology.He has multiple risk factors for lymphoma, including a 46-year smoking history, drinks 1-2 beers per week and a remote personal and familial history of thyroid condition (uncertain exact diagnosis). Hold off on abx for now, will start zosyn if patient spikes fever or blood cultures are positive Lipase, LFT's pending Follow CBC, BMP GI consult in AM NPO for possible procedure Acute kidney injury Uncertain baseline, elevated to 1.51 on admission. May be pre-renal given recent emesis. Follow BMP in AM Concern for prostatitis Noted to have tenderness on BRUCE while in ED, however no evidence seen on imaging and urinalysis didnot show any evidence of infection. Type 2 diabetes mellitus On victoza and metformin 1g daily. Hold SOFT SUGAR CUTTER regimen, start LDSSI while in hospital Hypertension On lisinopril and HCTZ SOFT SUGAR CUTTER. Hold home BP meds given soft BP's CONNIE on CPAP Continue CPAP Fibrotic lung disease: Noted on admission H&P Outpatient pulmonary referral - Could be done here or through PCP if he would prefer ICU: DVT Prophylaxis: Lovenox GI Prophylaxis: None Lines/dates: 3 peripheral IV Chief Complaint: weakness, N/V History of Present Illness: Patient is a 72 y.o. male with a past medical history of T2DM, HTN and previous thyroid issue who was transferred from [facility] with N/V x 4 days, and concerns for sepsis. Pt was initiallyseen at outside hospital on 04/[address] chest abdomen pelvis that showed duodenal thickening and gallbladder inflammation. He went home however on the day of admission (04/23), he reports that he started to feel weak and unsteady so he went back to [place] ED. In the [place] ED, he was hypotensive and febrile to 102F. Given concern for sepsis, he was started on vancomycin and Zosyn and transferred to [facility] for further evaluation. Did require up to 0.07 NE during transfer with EMS. Since arrival to [facility], NE was slowly been weaned off. Has otherwise been afebrile. Labs notable forWBC 4, hgb 8.6 (unknown baseline). Cr mildly elevated at 1.51 (unknown baseline). Lactate is withinnormal limits. Preliminary report on CT CAP did not show evidence of cholecystitis on ultrasound orCT but did show duodenal thickening with malignancy high on the differential, this would cause the CBD dilation as well. Pt was subsequently admitted for further evaluation and possible GI consult for endoscopy Medical History: No past medical history on file. No past surgical history on file. Psychosocial History: Occupational History Not on file Tobacco Use Smoking status: Not on file Smokeless tobacco: Not on file Substance and Sexual Activity Alcohol use: Not on file Drug use: Not on file Sexual activity: Not on file Social History Narrative Not on file Family History: No family history on file. Medications: (Not in a hospital admission) Allergies: Allergies Allergen Reactions Gabapentin Rash Review of systems: The following systems were assessed and were positive: --- Constitutional: generalized weakness and weight loss --- Gastrointestinal: nausea and vomiting Physical Exam: Vital Signs: Temp Av.8 ??C (98.2 ??F) Min: 36.6 ??C (97.9 ??F) Max: 36.9 ??C (98.5 ??F) Pulse Av.3 Min: 77 Max: 94 Resp Av.1 Min: 9 Max: 30 BP Min: 98/56 Max: 142/67 No intake or output data in the 24 hours ending 04/24/23 0253 There is no height or weight on file to calculate BMI. Vent Settings: Not ventilated GEN: No acute distress, lying comfortably in bed on RA. HEENT: Mucous membranes are moist, no scleral icterus CV: Regular rate and rhythm, no murmurs Lungs: CTAB, no respiratory distress Abdomen: Soft, non-tender, negative tyler sign, normoactive bowel sounds EXT: No lower extremity edema Skin: Warm and dry Neuro: A+O x 3 Psych: Appropriate affect and mentation Labs: BMP Lab Results Component Value Date/Time NA 138 04/24/2023 0016 K 3.6 04/24/2023 0016 CHLORIDE 109 (H) 04/24/202315 GLU 162 (H) 04/24/202315 CR 1.51 (H) 04/24/202315 CBC Lab Results Component Value Date/Time WBC 4.82 04/24/202315 RBC 3.61 (L) 04/24/202315 HGB 8.6 (L) 04/24/202315 HGB 9.4 (L) 04/24/202315 HCT 28.9 (L) 04/24/202315 PLT na 04/24/202315 UA Lab Results Component Value Date/Time PROTEINUR 30 (A) 04/24/2023145 GLUUR >=1000 (A) 04/24/2023145 KETONES TRACE (A) 04/24/2023145 BLOODUA NEGATIVE 04/24/2023145 BILIUA NEGATIVE 04/24/2023145 SPG 1.031 (A) 04/24/2023145 WBCUR 0-5 04/24/2023145 RBCUR 0-3 04/24/2023145 APPEAR CLEAR 04/24/2023145 NITRITE NEGATIVE 04/24/2023145 COLOR YELLOW 04/24/2023145 SQEPITH 0-5 04/24/2023145 UROBILINOGIN NORMAL 04/24/2023145 LET NEGATIVE 04/24/2023145 Other Diagnostic Studies: I have independently viewed the radiology images. CT CAP 04/24/2023: Findings suspicious for a nonobstructing duodenal malignancy with lymphoma leading the differential. Predominantly involves the third part of the duodenum and extends to the second part of the duodenum near the ampulla, which may explain the mildly dilated common bile duct and distended gallbladder. Recommend correlation with endoscopy. 2. Splenomegaly and mild heterogeneity of the anterior spleen Mild chronic interstitial pulmonary fibrosis. No acute pulmonary opacities. Coronary artery, aortic valve, and mitral annulus calcifications. Sequelae of chronic urinary bladder outlet obstruction, likely related to BPH. Primary care physician: No primary care provider on file. Attending Physician: Mik Ramos MD Hinke, Mason, DO, 04/24/2023 2:53 AM FACULTY NOTE I saw and evaluated the patient today, 04/24/2023. I discussed with the resident and agree with the resident???s findings and plan documented in the resident???s note from above. Any revisions by me are documented. 72-year-old man with a history of T2DM, HTN on HCTZ, ?thyroid disease who presented with nausea/vomiting, hypotension, found to have CBD dilation and masslike duodenal thickening. Briefly, he was transferred from [place] ED after being found to be hypotensive and febrile. He was initiated on antibiotics (vanc/zosyn), given fluids, started on norepinephrine, and transferred here. Overnight, norepinephrine was quickly discontinued and he reported being back to baseline without any recurrence of fever or vomiting. Imaging showed duodenal thickening with stricture as well as CBD dilation. He was made NPO overnight and GI was consulted for endoscopy. He underwent endoscopythis morning with finding of a duodenal mass, biopsies obtained and are pending. Other studies: This morning, his vitals are normal. He is saturating well on room air. He is alert and coherent, with normal speech and cognition. Warm and well-perfused. Abdomen with some tendernessin the RUQ and some guarding without rigidity. Labs: Cr 1.51 on admission, from presumably normal baseline. Lactate 0.9. CBC with anemia (Hgb 8.2), no leukocytosis. INR 1.3. LFTs with ALP 226, ALT 65, AST 85. Blood cultures pending Imaging: CT chest with peripheral and basilar predominant reticulations with traction bronchiectasis without clear honeycombing or ground glass (probable UIP). CT A/P with duodenal mass and CBD dilation, no gallbladder abnormalities concerning for cholecystitis. Assessment & Plan: Hypotension, concern for sepsis, probable hypovolemic shock: Now quickly resolved with fluids, without clear signs of infection. Suspect related to vomiting with baseline use of diuretics (HCTZ). Will monitor carefully for signs of infection. Hold diuretics/antihypertensives. Masslike duodenal thickening, CBD dilation: Quite concerning for malignancy. Status post EGD with biopsies -- will await results. He has a component of stricture, so will cautiously advance his diet after EGD. Prerenal Acute Kidney Injury: Improving Fibrotic lung disease: Without hypoxemic respiratory failure. Would recommend outpatient evaluation/referral to pulmonary on discharge (here or closer to home) Overall, he given that he has been off of pressors and appears clinically relatively well, will putin transfer orders for transfer to the floor. The patient was critically ill due to hypotension, vomiting, masslike duodenal thickening with CBD dilation. The treatment and management included adjustment of IV medications including pressors, assessment of the patient, obtaining and interpreting laboratory data, coordinating with consulting teams. I personally spent 30 minutes of critical care time on this patient. Any time spent on separately billable procedures is not included in this time. Swapna Whitney MD, 04/24/2023 1:47 PM documented in this encounter Procedure Notes * Mik Dominguez MD - 04/24/2023 10:46 AM CDTAssociated Order(s): .Post Sedation Immediate Post-Procedure Diagnose(s): Duodenal mass .Post Sedation Immediate Date/Time: 04/24/2023 10:46 AM Performed by: Noé Morris MD Authorized by: Mik Dominguez MD Sedation: Sedation type: moderate (conscious) sedation Reassessment: Immediately prior to administration of medications, the patient was re-assessed for adequacy to receive sedatives The patient returned to the pre-procedure baseline Sedation level obtained: moderate sedation There were no complications during sedation. Procedure: egd Pre Procedure Diagnosis: Duodenal mass Post Procedure Diagnosis: Duodenal mass Dry Cleaner Hand(s): Noé Morris MD See Procedural note in Chart Review for further information regarding the procedure details. Specimens have been collected. (Duodenal biopsies) There were no procedural complications. The estimated blood loss during this procedure was: 0mL Procedure location: ICU Noé Morris MD, 04/24/2023 10:46 AM documented in this encounter Consult Notes * Renata Mendez, PharmD - 04/27/2023 12:11 PM CDTAssociated Order(s): DISCHARGE MED REC FINAL REVIEW BY PHARMACY PHARMACY DISCHARGE NOTE Hola Rosaronanyudelka : 1950 Sex: male Pharmacy service was consulted for review of patient's discharge medications. Planned discharge medications are: Medication List Medications Indications acetaminophen 325 mg tablet Take 1 tablet (325 mg) by mouth 3 times daily as needed for Fever or Mild Pain. New allopurinol 300 mg Tabs Commonly known as: ZYLOPRIM Take 1 tablet (300 mg) by mouth daily. empagliflozin 10 mg tablet Commonly known as: JARDIANCE Take 1 tablet (10 mg) by mouth daily. levothyroxine 112 mcg tablet Commonly known as: SYNTHROID Take by mouth daily.Take 1 tablet on Mondays, Tuesdays, and Wednesdays and 2 tabs on , Saturday, Saturday, and Saturday liraglutide 18 mg/3 mL pen Commonly known as: VICTOZA Inject 0.2 mL (1.2 mg) subcutaneously daily. lisinopril-hydroCHLOROthiazide 20-25 mg 20-25 mg Tabs tablet Commonly known as: ZESTORETIC Take 1 tablet by mouth daily. Reduced from 2 tablet daily SOFT SUGAR CUTTER. metoprolol tartrate 25 mg tablet Commonly known as: LOPRESSOR Take 0.5 tablets (12.5 mg) by mouth twice daily. New - changed from labetalol 100 mg three times daily SOFT SUGAR CUTTER. ondansetron 4 mg Tabs Commonly known as: ZOFRAN Take 1 tablet (4 mg) by mouth 3 times daily with meals for 5 days. New pantoprazole 40 mg tablet Commonly known as: PROTONIX Take 1 tablet (40 mg) by mouth twice daily. New - per GI team. prochlorperazine 10 mg Tabs Commonly known as: COMPAZINE Take 1 tablet (10 mg) by mouth every 6 hours as needed for Nausea/Vomiting. New simvastatin 20 mg Tabs Commonly known as: ZOCOR Take 1 tablet (20 mg) by mouth at bedtime. tab-a-lizzeth tablet Take 1 tablet by mouth daily. Assessment: Pertinent points to note: -- SOFT SUGAR CUTTER aspirin, labetalol and metformin were discontinued. I have reviewed the patient's medications for discharge and have discussed the necessary changes with the provider. Changes have been made and medication list updated and complete. Please page with any questions. Renata Mendez, Mateusz 04/27/2023 12:11 For questions regarding this note, please contact pharmacist on service at [facility] ([employer]) [phone]. If no response within needed timeframe, please contact central pharmacy via phone at [phone]. * Samantha Montana, PT - 04/25/2023 6:14 PM CDT PHYSICAL THERAPY INPATIENT ACUTE EVALUATION Hola Burnette was seen 04/25/2023 for a Physical Therapy Evaluation. PT Discharge Recommendations Discharge Recommendations: Safety risk for discharge home today. Anticipate functional limitations will be resolved/addressed (see assessment in note). (04/25/23 1800) Barriers to discharge to home/community: Decreased Activity Tolerance and Falls Risk If discharging home, would need: 24 hr supervision due to cognitive limitations (see OT note for details) and 24 hr physical assistance. Post discharge follow-up: Outpatient PT recommended * (strength training, gait/balance training) (04/25/23 1800) Equipment Status: Patient will provide own equipment (04/25/23 1800) PT Equipment Recommended: Cane;Four wheeled walker (04/25/231799) DIAGNOSIS Patient Active Problem List Diagnosis Sepsis associated hypotension () PT Treatment Diagnosis: Difficulty in Walking R 26.2 Activity Intolerance Z 73.89 Age Related Physical Debility R 54 Muscle Weakness M 62.81 Unsteadiness on Feet R 26.81 PRECAUTIONS Falls Full Code Associate Property Manager Used: None needed ACTIVITY Up ad Nicole Physical Therapy Orders: Orders Placed This Encounter Procedures PT EVALUATION AND TREATMENT Standing Status: Standing Number of Occurrences: 1 Order Specific Question: Reasons for eval? Answer: As Per Dx Order Specific Question: OK for out of bed activity? (Update Activity Order) Answer: Yes HISTORY Pertinent History: Per Medicine Progress Note today: 72 y.o. male with PMH of TIIDM, HTN, Admit on04/24 from outside hospital with nausea, vomiting and weakness. Initially had some concern for sepsis, however pt has since been afebrile and BP has improved. CT C/A/P showed duodenal thickening and CBD dilation overall concerning for malignancy. Assessment & Plan: Duodenal thickening CBD dilation Pt was febrile and hypotensive at OSH but he does not currently meet sepsis criteria. CT and US didnot show any evidence of cholecystitis or other signs of infection. Urinalysis unremarkable. Possible that patient had viral gastroenteritis leading to his mild fever and hypotension that has since re solved. Since arrival to [facility], he has been afebrile and pressor requirements have improved and now off. Overall picture is concerning for malignancy, with lymphoma high on differential per radiology.He has multiple risk factors for lymphoma, including a 46-year smoking history, drinks 1-2 beers per week and a remote personal and familial history of thyroid condition (uncertain exact diagnosis). EGD completed on 04/24/23 with biopsies taken for analysis. -GI following, appreciate recs -Await pathology result from EGD -Fever resolved, but no elevation in WBC -stop Abx today as no clear source of infection or cholangitis. ?? Lipase low at 12, LFT's ALP 226, ALT 65, AST 85, T bilirubin 0.5, D bilirubin 0.3 ? Follow CBC, BMP ? Daily PPI Nutrition conuslt Acute kidney injury, improved Uncertain baseline, elevated to 1.51 on admission. 1.39 on 04/25/23. Likely pre- renal given recent emesis. ? Follow BMP daily Monitor Cr closely Concern for prostatitis Noted to have tenderness on BRUCE while in ED, however no evidence seen on imaging and urinalysis didnot show any evidence of infection. Type 2 diabetes mellitus On victoza and metformin 1g daily. ? Hold SOFT SUGAR CUTTER regimen, Continue LDSSI while in hospital Hypertension On lisinopril and HCTZ SOFT SUGAR CUTTER. ? Hold home BP meds given soft BP's CONNIE on CPAP ? Continue CPAP Resolved Problems: Discharge planning: TBD pending clinical improvement Subjective/Events of Past 24 Hours: Hospital Day: 2 Patient seen am 04/25/23. There were no acute events overnight.He slept well using CPAP and denies any complaints. He is anxious to get his biopsy results. He has no questions. Medical History No past medical history on file. SOCIAL HISTORY Information gathered from: Patient and Family Home: House Prior level of function: independent Baseline Ambulation: Limited community ambulation Assist available at home: Yes Stairs required at home: No Previous assistive device used: None, Cane, and 4 -wheeled walker *pt still drives *pt reports he gets more fatigued by end of day SUBJECTIVE Patient's Stated Goals: pt wants to return home but does not feel strong enough today. Pt/dtr both receptive to PT teaching about safety and activity progression for home. Pain: No physical or verbal indication of pain Mental Status: Oriented X 4, Alert, and Cooperative Follows Direction: Yes, 2 step Delirium Assessment - CAM Short (Confusion Assessment Method) Acute onset OR fluctuating course: No CAM result: Negative OBJECTIVE Initial patient presentation upon PT arrival: pt sitting indep at EOB, dtr at bedside Skin: Intact skin that was able to be observed Braces/Splints: pt uses R AFO at baseline, not here at hospital Lines: None Restraints/Fall Management: None Vital Signs: Vital Signs 04/25/2023 0814 04/25/2023 1130 04/25/2023 1600 BP: 106/55 122/94 105/50 Patient Position for BP: Lying Down -- Lying Down Pulse: -- -- 82 SpO2: 100 % 97 % 96 % *BP response stable with activity today Sensation: UE: Light touch: Within Normal Limits: Yes LE: Light touch: Within Normal Limits: No --baseline impairment RLE from 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 Motor: ROM/Strength: Right Left Upper Extremity: Range of Motion Grossly WNL Strength Grossly WNL Upper Extremity: Range of Motion Grossly WNL Strength Grossly WNL Lower Extremity: Range of Motion Grossly WNL Strength Grossly: 4/5 Dorsiflexion: 3-/5 Lower Extremity: Range of Motion Grossly WNL Strength Grossly: 4/5 Comment: baseline footdrop Transfers & Bed Mobility: Sit to Supine: Modified [place] Sit to Stand: Supervision, Set-Up or Standby Prompting Stand to Sit: Supervision, Set-Up or Standby Prompting Bed to Chair: Supervision, Set-Up or Standby Prompting Chair to Bed: Supervision, Set-Up or Standby Prompting Transfer Method Stand Pivot Transfer with Gait Device - FWW Gait Evaluation: Distance: 10, 30 meters Assistive Device: Front - wheeled walker Assistance (Level): Minimal assistance- Patient performs 75% or more of walking effort. Gait Deviations: Wide base of support, Foot drop: right, and slowed speed Stairs: NA Balance: Sitting: WNL Standing: Relies on assistive device for stability in standing Education/Other: started teaching about progression back to safe walking program with SO, rec [id number] at all times until strength improves. Also recommend OP PT follow up. Interdisciplinary Communication: Treatment rendered: Gait training;Transfer training;Bed mobility training;Positioning;Strengthening Total treatment time: 30 minutes ASSESSMENT Hola Burnette is a 72 y.o. male presents 72 y.o. male with PMH of TIIDM, HTN, Admit on 04/24 from outside hospital with nausea, vomiting and weakness. Initially had some concern for sepsis, however pt has since been afebrile and BP has improved. CT C/A/P showed duodenal thickening and CBD dilation overall concerning for malignancy. Pt presents a bit below baseline level of strength and function and does not appear safe to dc today. He will benefit from one more session to progress mobility and complete DC teaching with him and SO/family. Recommend he uses his 4WW at all times and gradually return to prior activities. Recommend Outpatient Physical Therapy follow up for additional strength and gait training activities for dc. Patient presents with Impaired gait, Decreased Strength, Impaired Balance, and Decreased Activity Tolerance. These impairments affect the patient's ability to safely and independently perform Bed Mobility, Transfers, Ambulation, and Community Integration. Patient will benefit from continued skilled PT services to progress towards goals. See Care Plan for goals. PLAN Patient will be seen 1-2x/week until goals are met or patient is discharged. Next visit the plan isto work on practice transfers and gait with 4WW, teaching progressive walking program for home, DC teaching with pt/family. SOFT SUGAR CUTTER Appropriate: Yes Participated in goal setting and treatment planning: Patient, Family Agrees with goals and treatment plan: Patient - Yes, Family - Yes. Samantha Montana, PT 04/25/2023 Pager: [facility] * Cora Orozco, RD - 04/25/2023 3:18 PM CDTAssociated Order(s): CONSULT TO NUTRITION Nutrition Consult Reason for Assessing Patient: Physician orders for: Nutritional assessment- weight loss Diet: SB6 Nutrition Support: None Malnutrition Diagnosis: Malnutrition of a moderate degree Assessment: gradual weight loss over the past year with significantly decreased PO intake x 5 days prior to admission (gastroenteritis?). Eating sufficiently so far while inpatient. Goal(s) Consume 75% of most meals. Nutrition Intervention(s) Regular diet with thin liquids. Discussed strategies for optimizing kcal/protein intake. Hold off on supplements, snacks, preferences for now and monitor GI tolerance/PO intake. Recommendations to Physician None today. Estimated Nutritional Needs: Calories: 7102-1498 Protein: 75-85 grams/day Fluid: 2000 mL/day Nutrition-Related History: Hola lives alone. Over the years, he has tried to follow a healthy diet to manage DM and to gradually lose weight. He reports weighing 315# approximately ten years ago when he retired. Typical diet includes: Breakfast: oatmeal, walnuts, cranberries or may go out for breakfast (sausage biscuit/gravy or eggsand hash brown potatoes) Lunch: banana Dinner: meat, potato, vegetable He started experiencing nausea and vomiting on Saturday (04/20) and this continued for two days. Today he is feeling fine and tolerating diet. Requesting regular textured foods (no dysphagia). Primaryconcern is getting results of his GI testing. Evidence of Malnutrition: Etiology: Chronic illness Energy Intake: < or equal to 50% for > or equal to 5 days Weight loss: 10% x 6 months Body fat: WNL Muscle mass: mild depletion Fluid accumulation: None Additional Nutrition Factors: history of DM2, HTN, CONNIE, fibrotic lung disease; admitted for evaluation of CBD thickening/duodenal mass, acute kidney injury Skin: intact, Niels score = 21. Pertinent Medical Tests and Procedures: EGD (04/24/23) GI: BM x 1. IV Fluids: None Pertinent Medications: MAR reviewed - includes aspart, synthroid, antibiotic, protonix. Anthropometrics Ht Readings from Last 1 Encounters: 04/24/23 1.753 m (5' 9.02) Admission weight: 89.3 kg (196 lb 13.9 oz) Current weight: Weight: 86.6 kg (190 lb 14.7 oz) (04/24/23 1700) BMI: Body mass index is 28.18 kg/m??. [place] body weight: 72.7 kg Weight history: 116.8 kg (2018); 92.3 kg (01/15/23)- Care Everywhere; daughter reports weight loss of40# over the past year Lab Results Component Value Date NA 137 04/25/2023 K 3.6 04/25/2023 GLU 101 (H) 04/25/2023 UN 26 (H) 04/25/2023 CR 1.39 (H) 04/25/2023 PO4 2.5 04/24/2023 MG 1.8 04/24/2023 Blood Glucose Levels: 102, 93, 150 mg/dL. Nutrition Risk Level: moderate Cora Orozco MS, RD, LD, CNSC Available via [employer] Weekend/Holiday coverage: [employer] * Judy Bragg, OTR/Lakshmi - 04/25/2023 12:00 PM CDT OCCUPATIONAL THERAPY ACUTE INITIAL EVALUATION Hola Burnette 04/25/2023 OT Discharge Recommendations Discharge Recommendations: Safety risk for discharge home today. Anticipate functional limitations will be resolved/addressed (see assessment in note). If patient were to D/C home today--please see below section for recommendations re: ADLs/IADLs Barriers to Discharge (OT): Motor/physical impairments pose safety risk for DC home Post Discharge Follow-up: Home OT to address: (*) Supervision / Assistance Recommended (for home DC): Supervision / Assistance recommended for Home DC (OT): Yes Level of supervision recommended (OT): Close supervision (within line of site e.g., in the same room) Supervision recommended for (OT): Upper body dressing;Lower body dressing;Toileting Physical assistance recommended for (OT): IADL's;Bathing Equipment Recommended: None - Pt has all equipment needed Equipment Status: OT In-patient follow-up / recommended referrals: Continue skilled OT services to achieve the goals on the plan of care / maximize safety and independence with ADL's / IADL's: - Recommended Frequency: 5x / week - Anticipated Duration of OT services: throughout hospital stay Patient Name: Hola Burnette : 1950 Age: 72 y.o. Hospital Admit date: 04/23/2023 Today's Date: 04/25/2023 Occupational Profile Medical History relevant to OT referral: Primary Diagnosis: Active Problems: Sepsis associated hypotension () Resolved Problems: * No resolved hospital problems. * Treatment Diagnosis: Impairments in motor function that limit safety and or independence with ADL's/ IADL's Restrictions/Precautions: Activity Level: Up Ad Nicole Hospital Course: Per MD notes: 72 M with PMHx of HTN, DM type 2, iatrogenic hypothyroidism, CONNIE, transferred from outside hospitalfor concern of septic shock on norepinephrine presumably from GI source. Off pressors since admission, on BS antibiotics for presumable sepsis. EGD done after findings of large duodenal mass on CT, showing a large necrotic mass suggestive of malignancy, biopsy taken and pending results. HOSPITAL COURSE BY PROBLEM: # Sepsis from likely GI source Main concern for admission. Febrile with multiple episodes of vomiting and nausea as well as fatigue. Was started on NE in outside hospital and transferred for concern of septic shock. Was given broad spectrum ab on admission and fluid resuscitation with resolution of hypotension. Patient had 2 more febrile episodes during the day with chills concerning for ongoing sepsis. Resumed Zosyn 4.5 g q 6hours and blood cultures taken. - Continue Zosyn for now, titrate ab based on culture results - IV fluids as needed, very responsive. 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 GI consulted, EGD done showing a large mass with necrotic features concerning for malignancy. Biopsy samples taken. Talked to oncology who recommended confirmation of adequacy of pathology samples. Can consider a Neck CT for further LN evaluations. Patient has dilated abdominal lymph nodes. GI signed off GI recommended soft diet with concern for stricture # Non oliguric Acute Kidney Injury, pre-renal in setting of sepsis Crea 1.51 on admission. Improved to 1.35 with fluids. - IVF as needed + PO intake - Daily BMP # Type 2 DM On SOFT SUGAR CUTTER metformin, Victoza and Empagliflozin - Hold SOFT SUGAR CUTTER medications and start LDSSI # gastritis Seen on EGD. No concerning features - Started on Pantoprazole 40 daily - consider H pylori testing # Hypertension On lisinopril and HCTZ SOFT SUGAR CUTTER. Hold home BP meds given soft BP's # CONNIE on CPAP Continue CPAP # Fibrotic lung disease: Noted on admission H&P Outpatient pulmonary referral - Could be done here or through PCP if he would Past Medical History No past medical history on file. Comorbidities identified that impacted OT assessment and treatment planning? yes Living Situation/Social History: Information obtained From: patient;family / rn primary care Help Available at home: yes, 24 hour assist (lives w/partner of several years- partner is out of town until tomorrow) Patient is living in a/an : house;house - one story Bathroom set up: walk in shower Mobility equipment currently available/used: cane;four wheeled walker with seat ADL Equipment currently available/used: grab bars;tub / shower chair Prior Level of Function: ADLs/IADLs: No assistance required (Independent or modified independent) Functional Mobility: Independent without assistive device (Occasional falls) Prior Therapies: Outpatient-balance work, core work Pt reports fairly physically active--walks usually daily w/partner Gathering the above information required the following: Expanded chart audit / interview Evaluation Subjective: Oh, I don't know if I feel ready to go home quite yet today. Pain: Pain Rating With Activity (Numeric): 0/10 Action Taken: No action needed Patient Appearance: Pt is seated @ EOB upon arrival to room. Pt's daughter, Carolee, at bedside Vitals: Vital Signs 04/24/2023 2325 04/25/2023 0814 04/25/2023 1130 BP: 122/94 Patient Position for BP: -- Pulse: -- SpO2: 97 % Upper Extremity Function: Hand Dominance: Right ROM/STRENGTH: (Deficits only) A = Active P = Passive AA = Assisted Upper Ext Right AROM Right MMT Left AROM Left MMT Overall UE Function WFL see below WFL see below Shoulder Flexion 3/5 (BASELINE d/t previous rotator cuff injury + repair) Shoulder Abduction Shoulder EXT Rotation Shoulder INT Rotation Elbow Flexion Elbow Extension Wrist Flexion Wrist Extension Cow Tester Activities of Daily Living: Eating: Supervision/Stand by assist Grooming: Supervision/Stand by assist Grooming Comments: Seated (fatigue) Toileting: Modified independence Lower Body Dressing: Modified independence Lower Body Dressing Comments: Pt is able to don elastic waist shorts from EOB Functional Mobility: Supine to/from Sit: Supervision/Stand by assist Sit to/from Stand : Supervision/Stand by assist Sit to/from Stand - Method: w/ Assistive device;From standard seat height (FWW) Bed to Bathroom: Minimal assist (75% patient effort) Bed to Bathroom- Method: Front wheeled walker *Pt reports history/baseline R foot drop-evident when walking to/from bathroom Activity Tolerance/Endurance: Patient tolerates sitting at edge of bed. Cognition: Mental Status: Alert;Oriented x 3;Cooperative Short Blessed Test: Screens short term memory, attention span, and concentration. The patient scored: 5 Errors included: : Pt was not oriented to time of day Pt recalled 4 of 5 parts of a name and address after a brief delay Norms are as follows: Normal to Minimal impairment = 0 - 8 Moderate impairment = 9 - 19 Severe impairment = 20 - 28 Delirium assessment: Confusion Assessment Method (CAM) Acute onset OR fluctuating course: No CAM result: Negative Delirium prevention / intervention appears indicated? No. Insight: Pt demonstrates insight into current condition and related safety considerations - Yes Problem solving: Pt able to complete basic functional problem solving - Yes Visual Perception: Pt reports visual changes - No Modifications to assessment process required: None Modifications to assessment process included the following: No modification required Additional Treatment / Education Provided: Education / training was provided to patient and family regarding : - Activities of daily living (ADL's): Bathing strategies - Energy conservation: - DME / Adaptive equipment (AE) recommendations: Bathing equipment Interdisciplinary Communication: RN: Ok to see patient Barriers to Learning: none identified Rehab Potential: good ASSESSMENT: (See box at the top of note for additional information) Impairments: This patient demonstrates impairments in the following: Functional mobility Balance Endurance / activity intolerance Performance Deficits / Activity Limitations: The impairments listed above affect the patient's ability to safely and independently engage in the following occupations : All Activities of Daily Living (ADL's) (i.e. grooming, dressing, toileting, bathing, etc.) All Instrumental Activities of Daily Living (IADLS's) (i.e. meal prep, money management, community mobility, shopping, etc.) Patient's Stated Goals: PLAN: See box at top of note for additional information. See care plan for OT goals (if indicated). Participated in goal setting and treatment planning: Patient Agrees with goals and treatment plan: Patient - Yes Plan For Next OT Session: --Standing ADLs/endurance Total treatment time: 40 minutes OT interventions and time spent on each: Eval: 30 minutes Self care/Home mgmt/ADL: 10 minutes Therapist: Judy Bragg OTR/L Pager: [facility] Occupational Therapy Department * Mik Dominguez MD - 04/24/2023 1:07 PM CDTAssociated Order(s): CONSULT TO GASTROINTESTINAL GASTROENTEROLOGY INITIAL CONSULT NOTE - Medical Student with Resident Hola Burnette : 1950 Sex: male REASON FOR CONSULT: CT with duodenal thickening and CBD dilation Impression and Recommendations: Hola Burnette, 72 year old man, with history of type 2 diabetes mellitus, hypertension, and hx of medullary thyroid cancer s/p thyroidectomy who was transferred from [place] 04/23/23 for management of sepsis. Of note, CT found duodenal thickening and possible CBD dilation therefore GI was consulted for possible EGD. Duodenal thickening, concerning for malignancy Possible CBD dilation Recent weight loss Abnormal liver function tests; hepatocellular pattern Recent weight loss of >50lbs since January 2023 in the setting of noted duodenal thickening on CT both here and from outside hospital. Given weight loss, imaging, and age highly concerning for malignancy. This suspicion is further supported by EGD at bedside which was significant for duodena mucosalchanges with narrowing (although able to pass scope) and areas of necrosis. May consider primary GIlymphoma given location, but does not have risk factors such as celiacs. As he has a hx of medullary thyroid cancer could consider a neuroendocrine GI tumor, albeit MEN1 is far more associated with GI neuroendocrine tumors. Possible adenocarcinoma of either the pancrease or duodena. Pancreatic adenocarcinoma is the most common of suggested malignancies, but would be atypical without notable obstructive pattern on LFTs. While, CT does have concerns for possible CBD dilation, it is borderline andLFTs do not reflect obstructive pattern, but rather minimal hepatocellular which may be start of shock liver in the setting hypotension. At this time low suspicion obstructive mass resulting in CBD dilation. - EGD with biopsies (completed this morning at bed side - see lab report) - Follow up on biopsies; please let GI know when these result - Daily PPI (given erythematous mucosa in the stomach) - Soft/low residue diet given duodenal stenosis GI to sign off at this time, please let GI know when biopsies result as we will re-engage at that time if remains in the hospital. From a GI perspective he does not need to remains in the hospital while biopsies result. It was a pleasure to participate in the care of this patient. Patient seen, examined and plan formulated with GI staff, Dr. Dominguez. FACULTY WITH RESIDENT: I saw and evaluated the patient today, 04/24/2023. I discussed with the resident and agree with the resident's findings and plan documented in the resident's note. Any revisionsby me are documented. Mik Dominguez MD, 04/24/2023 4:59 PM HISTORY OF PRESENT ILLNESS: Hola Burnette, 72 year old man, with history of type 2 diabetes mellitus, hypertension, and hx of medullary thyroid cancer s/p thyroidectomy who started with stomach pain on 04/20. On 04/[address] chest, abdomen and pelvis that showed duodenal thickening and gallbladder inflammation. On 04/23 hestarted to feel weak and unsteady so he went back to [place] ED. He arrived hypotensive and febrile consistent with sepsis so he was started on Vancomycin and Zosyn and transferred to [facility]. Mid route pressures were not stable therefore he required 0.07 nor epi. Of note, he is reporting significant weight loss of greater than 50lbs since January; states he is downto a 36 from 50 waist for pants sizes He has noted shape change in bowel movements, but denies color or frequency change. Denies hematochezia, melena, nausea, vomiting, diarrhea, or change to diet. Since arrival to [facility], he has been afebrile, vital signs within normal range and off pressors. Labssignificant for Hgb 8.2, Plt 169, WBC 5.09, Alk Phos 226, ALT 65, AST 85, Bili Direct 0.3, Bili Total 0.5, Albumin 3.3, Lipase 12, Protein 5.1, BUN 28, Creatinine 1.35. Repeat CT at [facility] consistent with duodenal thickening and dilation of CBD. PAST MEDICAL HISTORY: Type 2 Diabetes Mellitus Hypertension Obstructive sleep apnea Tobacco smoking for 30 years Thyroid cancer PROBLEM LIST: #1. Duodenal mass #2. Type 2 Diabetes Mellitus #3. Hypertension #4. Obstructive sleep apnea RELEVANT CURRENT MEDICATIONS: T2DM: Victoza and Metforming 1g daily HTN: Lisinoprol and Hydrochlorothiazide ALLERGIES: Gabapentin SOCIAL HISTORY: Reviewed and updated in EMR FAMILY HISTORY: Breast cancer in sister REVIEW OF SYSTEMS: A complete 10 point review of systems was obtained. Please see the HPI for pertinent positives and negatives. PHYSICAL EXAMINATION: VS: Vitals: 04/24/23 1230 BP: 121/54 Pulse: 99 Resp: 22 Temp: SpO2: 100% GEN: alert, cooperative, and in no distress EYE: PERRLA, eye lids clear, and sclera white HEENT: lips, mucosa, and tongue normal.Posterior pharynx clear. ABD: positive findings: tenderness mild suprapubic and distention SKIN: normal skin color, texture, and turgor. No rashes or lesions. NEURO: Not examined REVIEW OF LABORATORY, PATHOLOGY AND RADIOLOGY DATA: Lab Results Component Value Date/Time WBC 5.09 04/24/2023 06 RBC 3.40 (L) 04/24/2023614 HGB 8.2 (L) 04/24/2023614 HCT 27.8 (L) 04/24/2023614 PLT 169 04/24/2023614 MCV 81.8 04/24/2023614 MCH 24.1 (L) 04/24/2023614 MCHC 29.5 (L) 04/24/2023614 RDW 17.1 (H) 04/24/2023614 MPV 10.2 04/24/2023614 NEUTNO 3.73 04/24/2023 0016 LYMPHAB 0.58 (L) 04/24/2023 0016 MONOABSNO 0.37 04/24/2023 0016 EOSNUMB 0.09 04/24/2023 0016 BASO 0.03 04/24/2023 0016 Lab Results Component Value Date/Time NA 140 04/24/2023 0615 K 3.8 04/24/202315 CHLORIDE 106 04/24/2023 0615 CO2 23 04/24/2023 0615 GLU 100 04/24/202315 UN 28 (H) 04/24/2023614 CR 1.35 (H) 04/24/2023614 CA 8.1 (L) 04/24/2023614 MG 1.8 04/24/2023614 ALBUMIN 3.3 (L) 04/24/2023614 TPRO 5.1 (L) 04/24/2023 0615 ALP 226 (H) 04/24/2023 0615 ALT 65 (H) 04/24/2023 0615 AST 85 (H) 04/24/2023 0615 TBILI 0.5 04/24/2023 0615 Previous EGD: None Previous Colonoscopy: None Imaging results: EGD 04/24/23: Duodenal mass Duodenal biopsies: pending Primary care physician: No primary care provider on file. Jose Ugalde, , 04/24/2023 1:09 PM RESIDENT WITH STUDENT: I saw the patient with the medical student today, 04/24/2023 and performed, or re-performed, the physical exam and medical decision-making in the provision of this service and have verified the accuracy of all the medical student documentation and edited as necessary. Td Sanches MD, 04/24/2023 4:15 PM documented in this encounter ED Notes * Kayla Gomes MD - 04/24/2023 1:23 AM CDT Transfer of Care Note Patient: Hola Burnette : 1950 Age: 72 y.o. male Sign out received from MD Eddie. Please see original ED provider note for further details. PERTINENT HPI, PMH, & ED COURSE In brief, 72 y.o. male with a history of type 2 diabetes, hypertension, CONNIE, presenting as a transfer from [place], concern for sepsis 2/2 cholecystitis. N/V since Saturday. April 21, full workupwith evidence of duodenal inflammation and gallbladder wall thickening. Weak this morning and very unsteady, leading to presentation back at [place]. RUQ without cholecystitis Transfer for hypotension and fever 0.07 NE with good BP, down titrated to 0.03 Unclear fluid administered Got Vanc and Zosyn at 745pm BSUS with distended gall bladder Prostate tender CT CAP - duodenal thickening, causing mass effect on gallbladder Talk to rads about prostate Likely admit to MICU due to NE and tenuous BP prior to transfer Orders / Plan: Orders Placed This Encounter ??? XR CHEST 1 VIEW AP OR PA* ??? CT CHEST/ABD/PELVIS WITH IV CONTRAST ??? BLOOD GASES ??? CBC WITH PLTS/AUTO DIFF ??? ED CHEMISTRY LABS(NA,K,CL,CO2,GLU,CREAT,CA-IONIZED,ANION GAP) ??? ED HEMOGLOBIN TOTAL (ED ONLY) ??? FIBRINOGEN ??? Initial Lactate ??? Repeat Lactate ??? PRECAUTIONARY TUBE ??? COVID-19 SURVEILLANCE ? ? PROTHROMBIN (PT) & INR ??? PTT (APTT) ??? HS TROPONIN ??? TROP 2H ??? TROP 4H ??? TROP 6H ??? LIPASE ??? PANEL HEPATIC FUNCTION ??? EXTRA TUBE - LIGHT GREEN ??? EXTRA TUBE - SST ??? EXTRA TUBE - KING ??? ED CARDIAC MONITORING ? ? OXIMETRY-CONT (ED/PACU/L&D/OR/IR) ??? PERIPHERAL IV ??? norepinephrine 8 mg in 250 mL NaCl 0.9% (LEVOPHED) 250 mL infusion solution ??? iohexol (OMNIPAQUE) 350 mg/mL injection ??? BLOOD CULTURES FOR SEPSIS ??? BLOOD CULTURES FOR SEPSIS ??? URINALYSIS,TOTAL FINAL ED COURSE, DISPOSITION, AND PLAN BP 116/65 Pulse 87 Temp 36.9 ??C (98.5 ??F) (Rectal) Resp 17 Wt 89.3 kg (196 lb 13.9 oz) SpO2 95% Upon assuming care, I reviewed the chart, results of studies performed during their course in the ED, re-examined the patient, and discussed their care and plan with my supervising attending. ED Course as of 04/24/23 1113 SatApr 24, [address] CHEST/ABD/PELVIS WITH IV CONTRAST 1. Findings suspicious for a nonobstructing duodenal malignancy with lymphoma leading the differential. Predominantly involves the third part of the duodenum and extends to the second part of the duodenum near the ampulla, which may explain the mildly dilated common bile duct and distended gallbladder. Recommend correlation with endoscopy. 2. Splenomegaly and mild heterogeneity of the anterior spleen. 3. Mild chronic interstitial pulmonary fibrosis. No acute pulmonary opacities. 4. Coronary artery, aortic valve, and mitral annulus calcifications. 5. Sequelae of chronic urinary bladder outlet obstruction, likely related to BPH. 0235 MICU paged [phone] Off NE Was able to wean off nor epi during time in the cubes pending MICU bed. Patient feels improved froma weakness standpoint. Discussed his CT findings with the concern of the duodenal mass facts and possible malignancy. Patient voices understanding that we need more information from different procedures including EGD possibly with GI in this hospitalization. Signed out to MICU team, Dr. Jeter, who accepts patient for admission. We will redose Zosyn here in the ED. Hola remained hemodynamically stable in the emergency department, he was transferred to the MICU without incident. Final Clinical Impression Sepsis Concern for malignancy Mass effect on gallbladder Disposition and Plan Stable for admission to the MICU. Kayla Gomes MD, 04/24/2023 1:23 AM Emergency Medicine Resident PGY-2 Dictation Disclaimer: Some notes are completed with voice-recognition dictation software. As a result, there may be errors in the script that have gone undetected. Errors are generally corrected in real time. Please contact me via [employer] staff message if you note any errors requiring clarification. * Mikaela Marsh RN - 04/24/2023 1:00 AM CDT Bed: B02 Expected date: Expected time: Means of arrival: Comments: Hold for STAB 1 * Marilu Gerber RN - 04/24/2023 12:38 AM CDT Pt transferred from [place] for cholecystitis and sepsis. [facility] Pt became hypotensive upon transfer and was started on norepi 0.07 en route with good results. * Ricardo Hamilton RN - 04/23/2023 10:59 PM CDT Pt is being transferred from [facility] with Cholecystitis and possible sepsis. He was evaluated for this yesterday and today his pain increased. He has received NS 2L, Ibuprofen 600 mg, Zosyn 3.75 g and Vancomycin 2 g. Pt has bilateral 20g right and left forearm. documented in this encounter Miscellaneous Notes * Discharge non-MD/non-ANDREI Summaries - Quiana Lucero, PT - 04/27/2023 1:55 PM CDT Physical Therapy Inpatient Discharge Summary Hola Burnette [id number] Diagnosis Patient Active Problem List Diagnosis Sepsis associated hypotension () Precautions: Pain at final sessions: Participation Significantly Limited?: No (04/26/23944) Transfer & Bed Mobility Supine to/from Sit: Stand by assist (04/26/23944) Sit to/from Stand: Minimal assist (04/26/23944) Sit to/from Stand - Method: From standard seat height;w/ Assistive device (04/26/23944) Gait Distance (m): 30 m (04/26/23944) Device: 4-wheeled walker (04/26/23944) Assistance: Minimal assist (04/26/23944) Gait Quality (General): Slowed (04/26/23944) Gait Quality (Right side): Foot drop (04/26/23944) Equipment Status: Patient will provide own equipment (04/26/23944) Cane;Four wheeled walker (04/26/23944) Status of progress toward established goals: Pt will benefit from 01/04 supervision at home. SO willbe able to provide assistance. Problem: Decreased Transfer Skills Goal: Patient will transfer supine to/from sit Description: Patient will transfer supine to/from sit with (6) Modified [place] by 04/26/23 to improve safety and level of functional independence for home with support. Outcome: In progress Goal: Patient will transfer bed to/from chair Description: Patient will transfer bed to/from chair with (6) Modified [place] with sliding board or pivot method with 4WW by 04/26/23 to improve safety and level of functional independence for home with support. Outcome: In progress Problem: Decreased Ambulatory Skills Goal: Improve gait Description: Ambulate at least 30 meters using 4- wheeled walker with (5) Supervision, Set-Up or Standby Prompting by 04/26/23 to improve safety and level of functional independence for home with support. Outcome: In progress Plan: Discharge to Home and Outpatient PT Physical Therapist: Quiana Lucero, PT Date: 04/27/2023 Pager: [facility] Department * Discharge non-MD/non-ANDREI Summaries - Judy Bragg, OTR/L - 04/27/2023 1:55 PM CDT [facility] Occupational Therapy Discharge Summary Hola Burnette 04/28/2023 OT Discharge Recommendations Discharge Recommendations: Safe for discharge to home/community/prior residence. Barriers to Discharge (OT): None - barriers are resolved and patient is now safe to DC home from OTstandpoint Post Discharge Follow-up: Home OT to address: (*) Supervision / Assistance Recommended (for home DC): Supervision / Assistance recommended for Home DC (OT): Yes Level of supervision recommended (OT): Close supervision (within line of site e.g., in the same room) Supervision recommended for (OT): All ADL's (basic self-cares) and IADL's (e.g. medication management, money management, meal prep, grocery shopping, etc.) Physical assistance recommended for (OT): IADL's;Bathing Anticipated duration of physical assistance (OT): 1-2 weeks Equipment Recommended: None - Pt has all equipment needed Equipment Status: Plan: DC Inpatient OT as patient is being discharged to home with 24 hour supervision. Patient Name: Hola Burnette MR#: [id number] Date of : 1950 Age: 72 y.o. Hospital Admit date: 04/23/2023 Restrictions / Precautions at Discharge: Activity Level: Up Ad Nicole (04/25/23 0753) Current Medical History / Hospital Course: See MD AGUILAR summary for details. Patient Active Problem List Diagnosis Sepsis associated hypotension () Past Medical History: No past medical history on file. Living Situation/Social History: Information obtained From: patient;family / rn primary care (04/25/23 1200) Help Available at home: yes, 24 hour assist (lives w/partner of several years) (04/25/23 1200) Patient is living in a/an : house;house - one story (04/25/23 1200) Bathroom set up: walk in shower (04/25/23 1200) Mobility equipment currently available/used: cane;four wheeled walker with seat (04/25/23 1200) ADL Equipment currently available/used: grab bars;tub / shower chair (04/25/23 1200) Prior Level of Function (SOFT SUGAR CUTTER): ADLs/IADLs: No assistance required (Independent or modified independent) (04/25/23 1200) Functional Mobility: Independent without assistive device (Occasional falls) (04/25/23 1200) Prior Therapies: none (04/25/23 1200) Functional Status at Discharge: Activities of Daily Living Eating: Supervision/Stand by assist (04/25/23 1200) Grooming: Modified independence (04/27/23 1000) Grooming Comments: Pt is able to complete tasks while standing at sinkside today (04/27/23 1000) Toileting: Modified independence (04/27/23 1000) Toileting Comments: Able to manage clothing (04/27/23 1000) Lower Body Dressing: Modified independence (04/25/23 1200) Lower Body Dressing Comments: Pt is able to don elastic waist shorts from EOB (04/25/23 1200) Functional Mobility Supine to/from Sit: Modified independence (04/27/23 1000) Sit to/from Stand : Supervision/Stand by assist (04/27/23 1000) Sit to/from Stand - Method: w/ Assistive device;From standard seat height (FWW) (04/27/23 1000) Toilet Transfer: Modified independence (04/27/23 1000) Toilet Transfer- Method: Grab bar (04/27/23 1000) Bed to Bathroom: Supervision/Stand by assist (04/27/23 1000) Bed to Bathroom- Method: Front wheeled walker (04/27/23 1000) Functional Mobility in Room: Supervision/Stand by assist (04/27/23 1000) Functional Mobility in Room- Method: Front wheeled walker (04/27/23 1000) Motor / Splints: Cognition Mental Status: Alert;Oriented x 3;Cooperative;Follows 1 step direction (04/27/23 1000) Delirium Assessment: Delirium Assessment - CAM Short (Confusion Assessment Method) Acute onset OR fluctuating course: No (04/25/23 1200) CAM result: Negative (04/25/23 1200) Visual Perception: Patient / Caregiver Training: Caregiver Training Status (OT): Completed (04/27/23 1000) Caregiver Training Comments (OT): Pt's partner Rhona present at end of session--reviewed all recommendations for ADLs within home, energy conservation strategies, rec use of DME (eg shower chair). Rhona able to verbalize understanding (04/27/23 1000) See Care Plan for progress towards goals. Occupational Therapist: [facility] * Nursing Assessment - Jameel Olivas RN - 04/27/2023 12:10 PM CDT Nursing Assessment Head to Toe Head to Toe Assessment Shift Summary Patient is alert and oriented x4, he is able to make his needs known. Vitals remains stable at thistime. He continues to complain of abdominal pain at this time, and nausea. Patient states that he wants to be discharged home at this time, and MD has been notified. Patient is scheduled to be discharged home at this time. Will continue to monitor and continue with plan of care. Neurologic/Cognitive Within Defined Limits HEENT Within Defined Limits Cardiac Within Defined Limits Respiratory Assessment Within Defined Limits except for: Respiratory Assessment: Mechanical Device: While sleeping; BiPAP Neurovascular Within Defined Limits Gastrointestinal Assessment Within Defined Limits except for: Additional GI Signs/Symptoms: abdominal pain and nausea Emesis: 300 mL (04/26/2023 9:00 PM) Emesis (Unmeasured): Moderate amount (04/26/2023 3:00 AM) Stool Amount: small (04/26/23 0215) Stool Color: dark brown (per pt, not seen) (04/26/23 0215) Stool Consistency: soft (04/25/23 0200) Genitourinary Within Defined Limits Musculoskeletal Within Defined Limits Integumentary Within Defined Limits Patient Lines/Drains/Airways Status Active LDAs Name Placement date Placement time Site Days Peripheral IV 04/24/23 20 gauge Anterior;Left Antecubital 04/24/23232 -- 3 Peripheral IV 04/26/23 18 gauge;1 1/4 in length Anterior;Right Forearm 04/26/2324 -- 1 Psychosocial Assessment Within Defined Limits except for: Psychosocial Assessment: Family Behavior: at bedside * Nursing Assessment - Treasure Tobar RN - 04/27/2023 6:49 AM CDT Nursing Assessment Head to Toe Head to Toe Assessment Shift Summary Alert and oriented, CPAP at night. No episode of emesis at night. SBA to the bathroom using walker. States abdominal discomfort now Urinal at bedside. Call light at reach. Will continue to monitor for changes. .Filed Vitals: 04/27/2328 BP: 120/63 Pulse: 77 Resp: 18 oxygen: 96 %RA Neurologic/Cognitive Within Defined Limits HEENT Within Defined Limits Cardiac Within Defined Limits Respiratory Within defined limits Neurovascular Within Defined Limits Gastrointestinal Within Defined Limits Emesis: 300 mL (04/26/2023 9:00 PM) Emesis (Unmeasured): Moderate amount (04/26/2023 3:00 AM) Stool Amount: small (04/26/23214) Stool Color: dark brown (per pt, not seen) (04/26/23214) Stool Consistency: soft (04/25/23 0200) Genitourinary Within Defined Limits Musculoskeletal Within Defined Limits Integumentary Within Defined Limits Patient Lines/Drains/Airways Status Active LDAs Name Placement date Placement time Site Days Peripheral IV 04/24/23 20 gauge Anterior;Left Antecubital 04/24/23232 -- 2 Peripheral IV 04/26/23 18 gauge;1 1/4 in length Anterior;Right Forearm 04/26/2324 -- 1 Psychosocial Within Defined Limits * Nursing Assessment - Juliann Winn, DELON - 04/26/2023 10:12 PM CDT Nursing Assessment Head to Toe Head to Toe Assessment Shift Summary A&Ox4. Up with SBA with a walker to the bathroom. Pt had emesis x2 this evening. MD notified. MD ordered ONE TIME dose of Zofran. Administered Zofran. Call light within reach. Will continue to monitor with POC.Juliann Winn, RN, 04/26/2023 10:18 PM Neurologic/Cognitive Within Defined Limits HEENT Within Defined Limits Cardiac Within Defined Limits Respiratory Within defined limits Neurovascular Within Defined Limits Gastrointestinal Assessment Within Defined Limits except for: Additional GI Signs/Symptoms: nausea, emesis and abdominal discomfort Emesis: 300 mL (04/26/2023 9:00 PM) Emesis (Unmeasured): Moderate amount (04/26/2023 3:00 AM) Stool Amount: small (04/26/23 0215) Stool Color: dark brown (per pt, not seen) (04/26/23 0215) Stool Consistency: soft (04/25/23 0200) Genitourinary Within Defined Limits Musculoskeletal Assessment Within Defined Limits except for: Musculoskeletal Assessment: General Mobility: Generalized weakness Integumentary Assessment Within Defined Limits except for: Skin Assessment Color/Characteristics - bruised (ecchymotic) Color/Characteristics Location - right arm from IV infiltration Patient Lines/Drains/Airways Status Active LDAs Name Placement date Placement time Site Days Peripheral IV 04/24/23 20 gauge Anterior;Left Antecubital 04/24/23 0233 -- 2 Peripheral IV 04/26/23 18 gauge;1 1/4 in length Anterior;Right Forearm 04/26/23 0025 -- less than 1 Psychosocial Within Defined Limits Psychosocial Assessment: Observed Patient Behaviors: Pleasant Family Behavior: not present * Nursing Assessment - Jameel Olivas RN - 04/26/2023 6:33 PM CDT Nursing Assessment Head to Toe Head to Toe Assessment Shift Summary Patient is awake and alert and oriented x 4, he is able to make his needs known. Patients vitals are stable at this time. He had low blood pressure earlier and MD was notified. This nurse rechecked patients BP and noted that his blood pressure was better at 114/56, HR 76. Will continue to monitor and continue with plan of care. Neurologic/Cognitive Within Defined Limits HEENT Within Defined Limits Cardiac Within Defined Limits Respiratory Within defined limits Neurovascular Within Defined Limits Gastrointestinal Within Defined Limits Emesis (Unmeasured): Moderate amount (04/26/2023 3:00 AM) Stool Amount: small (04/26/23 0215) Stool Color: dark brown (per pt, not seen) (04/26/23 0215) Stool Consistency: soft (04/25/23 0200) Genitourinary Within Defined Limits Musculoskeletal Assessment Within Defined Limits except for: Musculoskeletal Assessment: General Mobility: Generalized weakness Integumentary Assessment Within Defined Limits except for: Skin Assessment Color/Characteristics - bruised (ecchymotic) Color/Characteristics Location - right arm from IV infiltration Patient Lines/Drains/Airways Status Active LDAs Name Placement date Placement time Site Days Peripheral IV 04/24/23 20 gauge Anterior;Left Antecubital 04/24/23 0233 -- 2 Peripheral IV 04/26/23 18 gauge;1 1/4 in length Anterior;Right Forearm 04/26/23 0025 -- less than 1 Psychosocial Within Defined Limits * Nursing Assessment - Jameel Olivas RN - 04/26/2023 1:43 PM CDT Nursing Assessment Head to Toe Head to Toe Assessment Shift Summary Patient is alert and oriented x 4, he is able to make needs known. Patient denies any blood in his stool at this time. He continues to complain of nausea at this time and has been medicated for this.Patient vital signs are stable at this time and daughter remains at the bedside. He shows no signs of distress, will continue to monitor and continue with plan of care. Neurologic/Cognitive Within Defined Limits HEENT Within Defined Limits Cardiac Within Defined Limits Respiratory Assessment Within Defined Limits except for: Respiratory Assessment: Mechanical Device: While sleeping and intermittent; BiPAP Neurovascular Within Defined Limits Gastrointestinal Within Defined Limits Emesis (Unmeasured): Moderate amount (04/26/2023 3:00 AM) Stool Amount: small (04/26/23 0215) Stool Color: dark brown (per pt, not seen) (04/26/23 0215) Stool Consistency: soft (04/25/23 0200) Genitourinary Within Defined Limits Musculoskeletal Within Defined Limits Integumentary Within Defined Limits Patient Lines/Drains/Airways Status Active LDAs Name Placement date Placement time Site Days Peripheral IV 04/24/23 20 gauge Anterior;Left Antecubital 04/24/23 0233 -- 2 Peripheral IV 04/26/23 18 gauge;1 1/4 in length Anterior;Right Forearm 04/26/23 0025 -- less than 1 Psychosocial Assessment Within Defined Limits except for: Psychosocial Assessment: Family Behavior: at bedside * Nursing Assessment - Beata More RN - 04/26/2023 4:31 AM CDT Nursing Assessment Head to Toe Head to Toe Assessment Shift Summary D: Pt sleeping for most of night and wearing his home CPAP. Pt used call light to notify staff whenhe got up to bathroom w/ walker. On one episode pt reported feeling lightheaded and nauseous. BP stable compared to ~2hr previous. Pt reported stool was brown and closer to regular BM than recent black stools, but senior mortgage underwriter did not see BM due to pt flushed toilet. A: Provided reassurance and standby asst while pt up to bathroom. Paged [facility] DO Tom Santamaria re pt symptoms, administered zofran and protonix, joss Hgb per new orders. R: Pt had moderate emesis w/ undigested food but no blood and zofran tablet not visible. Hgb 8.0 @0242. Pt reported relief later following zofran and protonix. D: Pt up to bathroom later, denied lightheadedness and nausea. A: Provided reassurance, administered synthroid @0616 while pt awake after bathroom. P: Continue to monitor, continue w/ plan of care. Beata More RN, 04/26/2023 8:05 AM Neurologic/Cognitive Within Defined Limits HEENT Assessment Within Defined Limits except for: Eye Symptoms: acute vision change - bilateral Comments: Glasses on or at bedside Cardiac Within Defined Limits Respiratory Assessment Within Defined Limits except for: Respiratory Assessment: Mechanical Device: While sleeping; CPAP Neurovascular Neurovascular Gastrointestinal Assessment Within Defined Limits except for: Additional GI Signs/Symptoms: nausea and emesis Emesis (Unmeasured): Moderate amount (04/26/2023 3:00 AM) Stool Amount: small (04/26/23 0215) Stool Color: dark brown (per pt, not seen) (04/26/23 0215) Stool Consistency: soft (04/25/23 0200) Genitourinary Within Defined Limits Musculoskeletal Assessment Within Defined Limits except for: Musculoskeletal Assessment: General Mobility: Mildly impaired Integumentary Assessment Within Defined Limits except for: Skin Assessment Color/Characteristics - bruised (ecchymotic) Patient Lines/Drains/Airways Status Active LDAs Name Placement date Placement time Site Days Peripheral IV 04/24/23 20 gauge Anterior;Left Antecubital 04/24/23 0233 -- 2 Peripheral IV 04/26/23 18 gauge;1 1/4 in length Anterior;Right Forearm 04/26/23 0025 -- less than 1 Psychosocial Within Defined Limits * Cross Cover - Tom Santamaria DO - 04/26/2023 3:14 AM CDT Notified of patient with dark stools yesterday evening. Cross cover resident at that time ordered Hgb which resulted at 8.5 down from previous of 9.4 earlier in the day. Patient otherwise well appearing and without hypotension or other hemodynamic instability. I assessed patient at the bedside following this who confirmed feeling okay overall. Requested large bore IV access be established. Switched oral protonix to IV BID. EGD 04/24 shoed erythematous mucosa in the stomach, severe mucosal changes in the proximal duodenum with severe edema, severe mucosal changes in the 3rd portion of the duodenum concerning for malignancy. Biopsies obtained. Notified around 0245 patient was up to use bathroom and noticed some lightheadedness and nausea. Had another small dark brown BM. Ordered another Hgb check which continues to show continued downtrendin Hgb to 8.0. Hemodynamics still stable. Given ongoing hemodynamic stability, will plan to recheck another Hgb with morning labs and have primary team discuss with GI in the morning regarding further evaluation/intervention. Suspect bleeding could be from the concerning mucosal surfaces or potentially from biopsy site. Tom Santamaria DO, 04/26/2023 3:23 AM * Nursing Assessment - Aneesh Shane RN - 04/25/2023 6:33 PM CDT Nursing Assessment Head to Toe Head to Toe Assessment Shift Summary Shift Summary Patient is alert and oriented, on room air, make needs known admitted for weakness from sepsis associated hypotension as a transfer from the ICU. Medication administered per MAR, intentional rounds completed, call light within reach.family at bedside, Patient denies pain, Nausea /Vomiting. Pt reported having black colored bowel movement x 2, this shift, Provider updated, Hg checked, 18 gauge PIV ordered,for possible transfusion.Continue to monitor the patient and with the POC.Aneesh Shane RN, 04/25/2023 9:55 PM Neurologic/Cognitive Within Defined Limits HEENT Within Defined Limits Cardiac Within Defined Limits Respiratory Within defined limits Neurovascular Within Defined Limits Gastrointestinal Assessment Within Defined Limits except for: Comments: Black bowel movement Stool Amount: moderate (04/25/23 0200) Stool Color: brown (04/25/23 0200) Stool Consistency: soft (04/25/23 0200) Genitourinary Within Defined Limits Musculoskeletal Within Defined Limits Integumentary Within Defined Limits Patient Lines/Drains/Airways Status Active LDAs Name Placement date Placement time Site Days Peripheral IV 04/23/23 20 gauge Anterior;Left Forearm 04/23/23 -- -- 2 Peripheral IV 04/24/23 20 gauge Anterior;Left Antecubital 04/24/23 0233 -- 1 Psychosocial Assessment Within Defined Limits except for: Psychosocial Assessment: Observed Patient Behaviors: Flat affect Verbalized Emotional State: Acceptance Family Behavior: at bedside, interacting with patient, attentive to patient and participating in care * Nursing Assessment - Aneesh Shane RN - 04/25/2023 12:33 PM CDT Nursing Assessment Head to Toe Head to Toe Assessment Shift Summary Shift Summary Patient is alert and oriented, on room air, make needs known admitted for weakness from sepsis associated hypotension as transferred from the ICU. Medication administered per MAR, intentional rounds completed, call light within reach.family at bedside, Patient denies pain, no nausea/ Vomiting. Patient ate both meals served this shift, Used his walker appropriately to the bathroom. PT/OT worked with patient this day shift. Continue to monitor patient while following the POC.Aneesh Shane RN, 04/25/2023 4:11 PM Neurologic/Cognitive Within Defined Limits HEENT Within Defined Limits Cardiac Within Defined Limits Respiratory Within defined limits Neurovascular Within Defined Limits Gastrointestinal Within Defined Limits Stool Amount: moderate (04/25/23 0200) Stool Color: brown (04/25/23 0200) Stool Consistency: soft (04/25/23 0200) Genitourinary Within Defined Limits Musculoskeletal Within Defined Limits Integumentary Within Defined Limits Patient Lines/Drains/Airways Status Active LDAs Name Placement date Placement time Site Days Peripheral IV 04/23/23 20 gauge Anterior;Left Forearm 04/23/23 -- -- 2 Peripheral IV 04/24/23 20 gauge Anterior;Left Antecubital 04/24/23 0233 -- 1 Psychosocial Within Defined Limits * Nursing Assessment - Mckayla Knox RN - 04/25/2023 3:31 AM CDT Nursing Assessment Head to Toe Head to Toe Assessment Shift Summary Pt is alert and oriented X3, is able to make needs known On room air, ambulate in room with a walker Assist of one with bathroom and ambulation Denies pain/SOB, no noted signs of acute distress Last VS taken at 2325 WNL Bed in locked/lowest position Call light with reach, Continue to follow with plan of care Mckayla Knox RN, 04/25/2023 3:36 AM Neurologic/Cognitive Within Defined Limits HEENT Within Defined Limits Cardiac Within Defined Limits Respiratory Assessment Within Defined Limits except for: Respiratory Assessment: ; CPAP Neurovascular Within Defined Limits Gastrointestinal Assessment Within Defined Limits except for: Abdominal appearance: Distended Stool Amount: moderate (04/25/23 0200) Stool Color: brown (04/25/23 0200) Stool Consistency: soft (04/25/23 0200) Genitourinary Assessment Within Defined Limits except for: Voiding: Voiding without difficulty Musculoskeletal Assessment Within Defined Limits except for: Musculoskeletal Assessment: General Mobility: Generalized weakness Integumentary Within Defined Limits Patient Lines/Drains/Airways Status Active LDAs Name Placement date Placement time Site Days Peripheral IV 04/23/23 20 gauge Anterior;Left Forearm 04/23/23 -- -- 2 Peripheral IV 04/24/23 20 gauge Anterior;Left Antecubital 04/24/23 0233 -- 1 Psychosocial Within Defined Limits * Interval Note Provider - Garth Sosa DO - 04/24/2023 5:11 PM CDT ACCEPTANCE OF TRANSFER NOTE Hola Burnette 1950 male [id number] Date of Admission: 04/23/2023 Date of Transfer: 04/24/2023 In brief, this is a 72 y.o. yo male w/ a PMHx significant for HTN, DM type 2, iatrogenic hypothyroidism, CONNIE who transferred from outside hospital for concern of septic shock on norepinephrine presumably from GI source. Off pressors since admission, on BS antibiotics for presumable sepsis. EGD doneafter findings of large duodenal mass on CT, showing a large necrotic mass suggestive of malignancy, biopsy taken and pending results. PLAN OF CARE UPON TRANSFER: # Sepsis from likely GI source Acute on chronic blood loss anemia Main concern for admission. Febrile with multiple episodes of vomiting and nausea as well as fatigue. Was started on NE in outside hospital and transferred for concern of septic shock. Was given broad spectrum ab on admission and fluid resuscitation with resolution of hypotension. Patient had 2 more febrile episodes during the day with chills concerning for ongoing sepsis. Resumed Zosyn 4.5 g q 6hours and blood cultures taken. - Continue Zosyn for now, titrate ab based on culture results - IV fluids as needed, very responsive. 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 GI consulted, EGD done showing a large mass with necrotic features concerning for malignancy. Biopsy samples taken. Talked to oncology who recommended confirmation of adequacy of pathology samples. Can consider a Neck CT for further LN evaluations. Patient has dilated abdominal lymph nodes. GI signed off GI recommended soft diet with concern for stricture # Non oliguric Acute Kidney Injury, pre-renal in setting of sepsis Crea 1.51 on admission. Improved to 1.35 with fluids. - IVF as needed + PO intake - Daily BMP # Type 2 DM On SOFT SUGAR CUTTER metformin, Victoza and Empagliflozin - Hold SOFT SUGAR CUTTER medications and start LDSSI # gastritis Seen on EGD. No concerning features - Started on Pantoprazole 40 daily - consider H pylori testing # Hypertension On lisinopril and HCTZ SOFT SUGAR CUTTER. Hold home BP meds given soft BP's # CONNIE on CPAP Continue CPAP # Fibrotic lung disease: Noted on admission H&P Outpatient pulmonary referral - Could be done here or through PCP if he would prefer Malnutrition of a moderate degree VTE Prophylaxis: Lovenox Code Status: Full FEN: Soft diet S: Resting comfortably with no new complaints at this time. States that he is worried about biopsy results. Excited to sleep without beeping. PHYSICAL EXAMINATION: BP 131/52 Pulse 102 Temp (!) 38.7 ??C (101.7 ??F) Resp (!) 35 Ht 1.753 m (5' 9) Wt 86.6 kg (190 lb 14.7 oz) SpO2 96% BMI 28.19 kg/m?? Physical Exam General: Resting in bed, NAD. Head: NCAT. No obvious injury noted. Eyes: No Scleral Icterus present. Lids normal. Cardiovascular: RRR. No murmur auscultated. Normal S1, S2. Pulmonary: Normal respiratory effort. Patent and protecting. Clear to auscultation bilaterally. Abdomen: Soft, non-distended. Neuro: Alert and awake. No focal deficits. Skin: Dry, appropriate color. Psych: Normal mood, appropriate affect. Garth Sosa DO, 04/24/2023 5:12 PM Internal Medicine, PGY2 * Transfer of [facility] - Swapna Whitney MD - 04/24/2023 4:59 PM CDT MICU TRANSFER NOTE oHla Burnette : 1950 Sex: male Date of Admission:04/23/2023 Date of Transfer: 04/24/2023 Level of care needed:floor without telemetry CODE STATUS: Full Code ADMISSION DIAGNOSES: 1. Sepsis 2. Gastroenteritis TRANSFER DIAGNOSES: 1. Sepsis, presumed from GI source 2. Large duodenal mass, concern for malignancy PROCEDURES EGD with duodenal mass biopsy CONSULTS GI, now signed off BRIEF SUMMARY OF HOSPITAL COURSE: (max 4-5 lines) 72 M with PMHx of HTN, DM type 2, iatrogenic hypothyroidism, CONNIE, transferred from outside hospitalfor concern of septic shock on norepinephrine presumably from GI source. Off pressors since admission, on BS antibiotics for presumable sepsis. EGD done after findings of large duodenal mass on CT, showing a large necrotic mass suggestive of malignancy, biopsy taken and pending results. HOSPITAL COURSE BY PROBLEM: # Sepsis from likely GI source Main concern for admission. Febrile with multiple episodes of vomiting and nausea as well as fatigue. Was started on NE in outside hospital and transferred for concern of septic shock. Was given broad spectrum ab on admission and fluid resuscitation with resolution of hypotension. Patient had 2 more febrile episodes during the day with chills concerning for ongoing sepsis. Resumed Zosyn 4.5 g q 6hours and blood cultures taken. - Continue Zosyn for now, titrate ab based on culture results - IV fluids as needed, very responsive. 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 GI consulted, EGD done showing a large mass with necrotic features concerning for malignancy. Biopsy samples taken. Talked to oncology who recommended confirmation of adequacy of pathology samples. Can consider a Neck CT for further LN evaluations. Patient has dilated abdominal lymph nodes. GI signed off GI recommended soft diet with concern for stricture # Non oliguric Acute Kidney Injury, pre-renal in setting of sepsis Crea 1.51 on admission. Improved to 1.35 with fluids. - IVF as needed + PO intake - Daily BMP # Type 2 DM On SOFT SUGAR CUTTER metformin, Victoza and Empagliflozin - Hold SOFT SUGAR CUTTER medications and start LDSSI # gastritis Seen on EGD. No concerning features - Started on Pantoprazole 40 daily - consider H pylori testing # Hypertension On lisinopril and HCTZ SOFT SUGAR CUTTER. Hold home BP meds given soft BP's # CONNIE on CPAP Continue CPAP # Fibrotic lung disease: Noted on admission H&P Outpatient pulmonary referral - Could be done here or through PCP if he would prefer PENDING TESTS RESULTS/RECOMMENDED FOLLOW UP: Pending Biopsy results DIET: Soft diet, concern for duodenal stricture IV Fluids: none Antibiotic indications and stop dates: 1. Zosyn for sepsis presumed from GI source Indwelling lines PIV (please include date of placement) Szymanski:yes strict I&O PPI/H2RA: PHYSICAL EXAMINATION: Most recent Vital Signs and Weight: BP 131/52 Pulse 102 Temp (!) 38.7 ??C (101.7 ??F) Resp (!) 35 Ht 1.753 m (5' 9) Wt 86.6 kg (190 lb 14.7 oz) SpO2 96% BMI 28.19 kg/m?? GEN: No acute distress, lying comfortably in bed on RA. HEENT: Mucous membranes are moist, no scleral icterus CV: Regular rate and rhythm, no murmurs Lungs: CTAB, no respiratory distress Abdomen: Soft, non-tender, negative tyler sign, normoactive bowel sounds EXT: No lower extremity edema Skin: Warm and dry Neuro: A+O x 3 Psych: Appropriate affect and mentation ALLERGY: Allergies Allergen Reactions Gabapentin Rash MEDICATIONS AT TRANSFER: Scheduled Medications Current Facility-Administered Medications Medication Frequency enoxaparin (LOVENOX) 40 mg/0.4 mL injection 40 mg daily insulin ASPART (NovoLOG) FlexPen tid AC insulin ASPART (NovoLOG) FlexPen hs mr x1 [START ON 04/25/2023] levothyroxine (SYNTHROID) tablet 112 mcg qAM AC pantoprazole (PROTONIX) tablet 40 mg daily [START ON 04/25/2023] levothyroxine (SYNTHROID) tablet 112 mcg Once per day on Sat Sat piperacillin-tazobactam (ZOSYN) 4.5 g in NaCl 0.9% IVPB q6h IV Fluids/Medications Current Facility-Administered Medications Medication Frequency norepinephrine 8 mg in 250 mL NaCl 0.9% (LEVOPHED) 250 mL infusion solution continuous PRN Medications Current Facility-Administered Medications Medication Frequency acetaminophen tablet 650 mg q4h prn Aniket Fall MD, 04/24/2023 4:59 PM FACULTY NOTE I saw and evaluated the patient on the date of the resident's note, 04/24/23. I discussed with the resident and agree with the resident???s findings and plan documented in the resident???s note from above. Any revisions by me are documented. See my interval note from 04/24 for my medical decision making and critical care time. Swapna Whitney MD, 04/25/2023 4:44 PM * Nursing Assessment - Beata Kaba RN - 04/24/2023 3:47 PM CDT TRANSFER OUT NOTE D: Hola Burnette admitted on 04/23/2023 with diagnosis of sepsis. Medical history includes: No past medical history on file. Surgical history includes: No past surgical history on file. Active Problems: Sepsis associated hypotension () Resolved Problems: * No resolved hospital problems. * Procedures during hospitalization include: Procedure(s): GI EGD WITH BIOPSY Transferred patient due to: sep Patient Belonging 04/24/2023 0500 Patient or family informed of Patient Valuables and Belongings Policy (#[id number]): Due to patient condition, [facility] staff will inventory and secure patient valuables Medications brought in by patient?: None A: Transferred patient from [facility] to [facility] at 1700, via cart. Transferred with: [facility] Transferred with all property: yes cell phone, glasses internet webmaster, CPAP machine. Personal clothing transferred with pt. To [id number] Family made aware of transfer: yes family at bedside R: Tolerated transfer. well P: Commence with cares on receiving unit. Nursing Assessment Head to Toe Head to Toe Assessment Shift Summary Shift Summary Neurologic/Cognitive Within Defined Limits HEENT Within Defined Limits Cardiac Assessment Within Defined Limits except for: Septic Tank Cleaner - bedside telemetry ECG Rhythm: normal sinus rhythm and sinus tachycardia Ectopy/Frequency: PVCs - less than or equal to 6/min Respiratory Assessment Within Defined Limits except for: Respiratory Assessment: Mechanical Device: While sleeping; CPAP Neurovascular Within Defined Limits Gastrointestinal Within Defined Limits Genitourinary Assessment Within Defined Limits except for: Voiding: Frequency Musculoskeletal Within Defined Limits Integumentary Within Defined Limits Patient Lines/Drains/Airways Status Active LDAs Name Placement date Placement time Site Days Peripheral IV 04/23/23 20 gauge Anterior;Left Forearm 04/23/23 -- -- 1 Peripheral IV 04/24/23 20 gauge Anterior;Left Antecubital 04/24/23 0233 -- less than 1 Psychosocial Within Defined Limits * Interval Note Provider - Garth Sosa DO - 04/24/2023 1:24 PM CDT Handoff Communication Note for Hospital Admission Verbal handoff received from Aniket Fall MD in MICU. Patient Class: Inpatient Cardiac Monitoring: Not needed Brief summary of handoff from ED/Clinic Staff/ICU: 72 y.o. 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 Concern for sepsis and started on pressors. Stable on arrival and pressors stopped. IVF replacement. CT AP thickening of duodenum concerning for lymphoma. EGD performed and demonstrates large mass in duodenum as well as stenosis. Soft diet only. Also gastritis started on PPI. IP admit order will be placed in accordance with the patient class designation above. Please page the Bee Team via [employer] with clinical updates or status changes. Note is for documentation only and not for billing purposes. Garth Sosa DO, 04/24/2023 1:24 PM * Sedation - Noé Morris MD - 04/24/2023 9:58 AM CDT Images from the original note were not included. Pre-Sedation Note Hola Burnette : 1950 Sex: male Hola Burnette will be sedated for the following procedure: EGD. Indication: abnormal CT imaging Pre-procedure H&P previously completed within 24 hours. See that note for details. All relevant documents are present and have been verified for this procedure. The test results are available and properly labeled. The written consent has been obtained. There is no site marking needed. The expected sedation level for this procedure is moderate. ASA Class: 2 Physical Examination: BP 112/60 Pulse 78 Temp 35.4 ??C (95.7 ??F) (Oral) Resp 22 Ht 1.753 m (5' 9) Wt 86.6 kg (190 lb 14.7 oz) SpO2 95% BMI 28.19 kg/m?? Airway Exam- Within Normal Limits Mallampati Score- II Respiratory Exam- Within Normal Limits CV Exam- Within Normal Limits Additional comments: Targeted exam: abdomen, soft, nontender Medications: No medications prior to admission. Allergies: Allergies Allergen Reactions Gabapentin Rash Pre-sedation evaluation has been completed. The patient is okay for sedation. Noé Morris MD * Nursing Assessment - Cosme King RN - 04/24/2023 7:56 AM CDT Nursing Assessment Head to Toe Head to Toe Assessment Shift Summary Shift Summary Neurologic/Cognitive Within Defined Limits HEENT Within Defined Limits Cardiac Assessment Within Defined Limits except for: Septic Tank Cleaner - bedside telemetry ECG Rhythm: normal sinus rhythm Ectopy/Frequency: PVCs - less than or equal to 6/min Respiratory Assessment Within Defined Limits except for: Respiratory Assessment: Respirations: Mechanical device Mechanical Device: While sleeping; CPAP Neurovascular Within Defined Limits Gastrointestinal Within Defined Limits Genitourinary Within Defined Limits Musculoskeletal Within Defined Limits Integumentary Within Defined Limits Patient Lines/Drains/Airways Status Active LDAs Name Placement date Placement time Site Days Peripheral IV 04/23/23 20 gauge Anterior;Left Forearm 04/23/23 -- -- 1 Peripheral IV 04/24/23 20 gauge Anterior;Left Antecubital 04/24/23 0233 -- less than 1 Psychosocial Within Defined Limits * Nursing Assessment - Jessica Orozco RN - 04/24/2023 5:18 AM CDT Nursing Assessment Head to Toe Head to Toe Assessment Shift Summary Shift Summary Upon admission, a Four Eyes Skin Inspection was completed with Samy Prather RN (Name & Title). Skininjuries were not present, and skin breakdown needing further assessment will be added to Avatar. Will implement interventions from Skin INJURY Bundle as appropriate. Pt arrived from ED at about 0445. Vital signs stable on room air. Pt alert and oriented x4. Pt ableto ambulate in room with walker and standby assist. No drips infusing. Neurologic/Cognitive Within Defined Limits HEENT Within Defined Limits Cardiac Assessment Within Defined Limits except for: Septic Tank Cleaner - bedside telemetry Lead Monitored: Lead II ECG Rhythm: normal sinus rhythm ST Segment (mm): Normal T-Wave: Normal Pacemaker: Pacemaker: No Respiratory Within defined limits Neurovascular Within Defined Limits Gastrointestinal Assessment Within Defined Limits except for: Abdominal appearance: Rounded Bowel Sounds hypoactive - Genitourinary Within Defined Limits Musculoskeletal Assessment Within Defined Limits except for: Musculoskeletal Assessment: General Mobility: Generalized weakness Integumentary Assessment Within Defined Limits except for: Skin Assessment Color/Characteristics - bruised (ecchymotic) and redness, blanchable Moisture - dry Integrity - abrasion(s) Patient Lines/Drains/Airways Status Active LDAs Name Placement date Placement time Site Days Peripheral IV 04/23/23 20 gauge Anterior;Left Forearm 04/23/23 -- -- 1 Peripheral IV 04/24/23 20 gauge Anterior;Left Antecubital 04/24/23 0233 -- less than 1 Psychosocial Within Defined Limits * Interval Note Provider - Nick Jeter DO - 04/24/2023 2:44 AM CDT Handoff Communication Note for Hospital Admission Verbal handoff received from ED. Patient status: inpatient Brief summary of handoff from ED LOSS PREVENTION AUDITOR: Patient is a 72 y.o. male who was transferred from [facility] with N/V x 4 days, and concerns for sepsis. Initially seen at outside hospital had CT chest abdomen pelvis that showed duodenal thickening and gallbladder inflammation. He went home however on the day of admission started to feel weak and unsteady so he went back to [place] ED. In the ED, he was hypotensive and febrile (unknown Tmax). Given concern for sepsis, he was started on vancomycin and Zosyn and transferred to [facility] for further evaluation. Did require up to 0.07 nor epi mid route. Since arrival to [facility], [place] has slowly been weaned down but still on 0.03. Preliminary report on imaging here did not show evidence of cholecystitis on ultrasound or CT but did show duodenal thickening (some concern for lymphoma?) and possible gallbladder inflammation. Currently recommending admission for further evaluation and possible GI consult for endoscopy Please page the component design engineer MICU team via [employer] with clinical updates or status changes. Note is for documentation only and not for billing purposes. Nick Jeter DO, 04/24/2023 2:45 AM * ED Stabilization Note - Cinthya Morgan MD - 04/24/2023 12:34 AM CDT Emergency Medicine Stabilization Room Note Hola Burnette 1950 Sex: male Patient Arrival Date and Time: 04/23/2023 11:58 PM Emergency Medicine Faculty [facility] Stabilization Resident Cinthya Morgan MD, 04/29/2023 2:59 PM Stabilization Team RN: Marilu [facility]: [facility] None Pre-Hospital Events Hola Burnette is a 72 y.o. male presents to the stabilization room as a transfer from [facility] with concern for sepsis secondary to cholecystitis. He had nausea, vomiting, and constipation on Saturday and Saturday. He started to have abdominal pain in the RUQ after that. He was seen on 04/22 at [place] where he was noted to have thickened gallbladder wall to 0.7 cm yesterday. Today, he woke up and was unable to stand because he felt weak all over. At the OSH, he had a gallbladder wall thickened to 0.4 cm, but he was febrile to 102F with soft BP of 90s/50s. He was transferred Review of additional history is limited due to patient's acute illness Primary Survey Airway: Patent, protecting Breathing: Non-labored, symmetric chest rise Circulation: Skin warm. Radial pulses. Disability: GCS 15 (4 - Opens eyes spontaneously; 5 - Oriented, converses normally; 6 - Obeys commands) Exposure: Clothing removed. Vital Signs BP 119/63 Pulse 85 Temp 36.6 ??C (97.9 ??F) (Tympanic) Resp 18 Ht 1.753 m (5' 9.02) Wt 86.6 kg (190 lb 14.7 oz) SpO2 100% BMI 28.18 kg/m?? Please seen flowsheet for additional vitals. Secondary Survey General: Awake, alert, appropriate Head: NC/AT Eyes: No conjunctival injection, Lids normal ENT: No oropharyngeal/tonsillar exudate or erythema. MMM Neck: Supple.Trachea midline. Cardio: RRR. Appears well-perfused Pulm: See primary survey GI: Soft. Tender to right upper quadrant. No rebound tenderness or guarding. TTP prostate. : Normal external genitalia MSK: Freely moving all extremities. No contractures, deformities or cyanosis. Neuro: PERRLA. No grossly focal sensory or motor deficits noted. Normal speech. Skin: No rashes, lesions or bruising. Skin warm/dry Psych: Exam limited d/t acuity of patient's condition Review of Systems Review of systems limited by patient's acute illness Code Status I am unaware of any advanced directive wishes of this patient prior to treatment of this patient. Procedures I performed the following procedures: Adult Medical Resuscitation. Stabilization Room Events / Medical Decision Making / Disposition Hola Burnette is a 72 y.o. male [facility] for [facility] As the patient arrived to the stabilization room, report was taken from EMS. Patient transferred to [facility]. Primary survey completed while patient placed on oximetry, cardiac monitoring, and cuff blood pressure monitoring. Intravenous access established and initial blood tests sent. Secondary survey completed as above. Primary survey reassuring. Vital signs stable on 0.07 of norepinephrine drip. Physical exam notable for right upper quadrant tenderness and prostate tenderness. Bedside U/S with distended gallbladder but no clear evidence of cholecystitis CXR clear CT CAP with duodenal thickening which may be causing gallbladder dilation EKG with normal sinus rhythm Labs notable for Normal lipase Alk phos 226, ALT 65, AST 85 Hgb 8.6 Patient was given Vanco and Zosyn for antibiotic coverage at the outside hospital I shared my concern for duodenal malignancy with the patient. He expressed understanding. Unclear etiology for the patient's sepsis, however concern for cholecystitis vs prostatitis. Patient was transferred to the ED team center while in stable condition. Their care was signed out [id number] with the ED team center provider. Please see their note for the remainder of patient's care while in the emergency department. Clinical Impression 1. Sepsis associated hypotension () 2. Duodenal mass Disposition Team center Cinthya Morgan MD PGY3 Emergency Medicine Resident * ED Faculty Note - Mik Ramos MD - 04/24/2023 12:04 AM CDT Images from the original note were not included. ED Faculty Attestation and Note Hola Burnette : 1950 Sex: male Patient Arrival Date and Time:04/23/2023 11:58 PM FACULTY ATTESTATION IRachel Robert F, MD, personally saw the patient, performed critical or duncan portions of the service, and discussed the care with the resident MDM / ED Course Hola Burnette presented to the emergency department with sepsis. Patient seen at [facility] yesterday for vomiting and weakness, diagnosed with cholecystitis and discharged but returned to [facility] with worsening abdominal pain and fever concerning for sepsis. Received zosyn and vancomycin at OSH. Developed hypotension en route and was startedon norepinephrine drip. 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 Head CT ordered to evaluate for metastases given patient increased weakness. Head CT negative. Admit for further management of sepsis and endoscopy to further evaluate possible malignancy. IMPRESSION 1. Sepsis associated hypotension () Upon my evaluation, this patient had a high probability of imminent life or limb-threatening deterioration due to sepsis, which required my highest level of preparedness to intervene emergently, and I spent this critical care time directly and personally managing the patient. I have personally provided 40 minutes of critical care time exclusive of time spent on separately billable procedures, treating other patients, or teaching time. Time includes obtaining history, reviewing medical records, examining the patient, ordering and review of studies, fluid resuscitation, pharmacotherapy including norepinephrine, pulse oximetry, review of laboratory data, interpretation of radiology studies, ECG interpretation, frequent reassessment, monitoring for potential decompensation, discussion with consultants, and admission. This critical care time was performed to assess andmanage the high probability of imminent deterioration that could result in respiratory failure, cardiac faliure, neurologic disability, shock, and . Trauma Team: Not activated. Scribed for Mik Ramos MD by Alessandro Glass Scribe, 04/24/2023 12:04 AM IRachel Robert F, MD have reviewed the initial documentation provided by the scribe and affirm that it is an accurate restatement of my dictated record of services. Signed: Mik Raoms MD documented in this encounter Plan of Treatment Scheduled Referrals Name Type Priority Associated Diagnoses Orde r Schedule REFERRAL TO PHYSICAL THERAPY Referral Routine Sepsis associated hypotension () Duodenal mass Ordered: 04/27/2023 REFERRAL TO OCCUPATIONAL THERAPY Referral Routine Sepsis associated hypotension () Duodenal mass Ordered: 04/27/2023 documented as of this encounter Procedures Procedure Name Priority Date/Time Associated Diagnosis Comments POC GLUCOSE Routine 04/27/2023 12:07 PM CDT PANEL BASIC METABOLIC (BMP) Timed 04/27/2023 9:34 AM CDT PANEL HEPATIC FUNCTION Timed 04/27/2023 9:34 AM CDT PC LAB CBC/PLT Timed 04/27/2023 9:34 AM CDT POC GLUCOSE Routine 04/27/2023 7:38 AM CDT POC GLUCOSE Routine 04/26/2023 9:18 PM CDT HEMOGLOBIN Timed 04/26/2023 8:18 PM CDT POC GLUCOSE Routine 04/26/2023 5:25 PM CDT POC GLUCOSE Routine 04/26/2023 12:11 PM CDT PANEL BASIC METABOLIC (BMP) Routine 04/26/2023 8:10 AM CDT TC LAB BLOOD DRAW BY VENIPUNCTURE Routine 04/26/2023 8:10 AM CDT POC GLUCOSE Routine 04/26/2023 7:21 AM CDT HEMOGLOBIN STAT 04/26/2023 2:42 AM CDT POC GLUCOSE Routine 04/25/2023 9:17 PM CDT HEMOGLOBIN STAT 04/25/2023 7:12 PM CDT POC GLUCOSE Routine 04/25/2023 5:17 PM CDT POC GLUCOSE Routine 04/25/2023 12:13 PM CDT POC GLUCOSE Routine 04/25/2023 9:09 AM CDT PANEL BASIC METABOLIC (BMP) Routine 04/25/2023 8:03 AM CDT PANEL HEPATIC FUNCTION Routine 04/25/2023 8:03 AM CDT PC LAB CBC/PLT Routine 04/25/2023 8:03 AM CDT POC GLUCOSE Routine 04/25/2023 5:03 AM CDT POC GLUCOSE Routine 04/24/2023 8:56 PM CDT POC GLUCOSE Routine 04/24/2023 6:09 PM CDT PC CULTURE,BACTERIAL,DE FINATIVE,AEROBIC;BLO OD Routine 04/24/2023 3:11 PM CDT PC CULTURE,BACTERIAL,DE FINATIVE,AEROBIC;BLO OD Routine 04/24/2023 3:11 PM CDT POC GLUCOSE Routine 04/24/2023 11:46 AM CDT IMMEDIATE POST PROCEDURE SEDATION Routine 04/24/2023 10:46 AM CDT Duodenal mass PC SURG PATH, W-O COMPLEX DISSECTION STAT 04/24/2023 10:20 AM CDT Duodenal mass GI EGD WITH BIOPSY Urgent (< 48 hrs) 04/24/2023 9:53 AM CDT Duodenal mass UPPER GI ENDOSCOPY Routine 04/24/2023 9: 52 AM CDT POC GLUCOSE Routine 04/24/2023 7:47 AM CDT COVID-19 SURVEILLANCE STAT 04/24/2023 6:40 AM CDT PC MAGNESIUM, SERUM STAT 04/24/2023 6 :15 AM CDT PC LAB CBC/PLT STAT 04/24/2023 6:15 AM CDT PC BASIC MET PANEL STAT 04/24/2023 6: 15 AM CDT PC TROPONIN QUANTITATIVE Timed 04/24/2023 6:15 AM CDT PHOSPHORUS Routine 04/24/2023 6:15 AM CDT LIPASE STAT 04/24/2023 6:15 AM CDT PANEL HEPATIC FUNCTION STAT 04/24/2023 6:15 AM CDT PC LAB GLYCOSYLATED HGB STAT 04/24/2023 6:[address] HEAD NO IV CONTRAST Routine 04/24/2023 2:56 AM CDT PROTHROMBIN (PT) & INR STAT 04/24/2023 2:02 AM CDT FIBRINOGEN STAT 04/24/2023 2:02 AM CDT PC LAB PTT STAT 04/24/2023 2:02 AM CDT TC LAB ER STAT URINALYSIS STAT 04/24/2023 1:[address] CHEST/ABD/PELVIS W/IV CONT STAT 04/24/2023 12:52 AM CDT PC CULTURE,BACTERIAL,DE FINATIVE,AEROBIC;BLO OD STAT 04/24/2023 12:39 AM CDT ED EKG (12-LEAD) Routine 04/24/2023 12:3 7 AM CDT PRECAUTIONARY TUBE Routine 04/24/2023 12 :36 AM CDT XR CHEST 1 VIEW AP OR PA* STAT 04/24/2023 12:32 AM CDT TC LAB BLOOD DRAW BY VENIPUNCTURE Routine 04/24/2023 12:16 AM CDT EXTRA TUBE - KING Routine 04/24/2023 12: 16 AM CDT EXTRA TUBE - SST Routine 04/24/2023 12:1 6 AM CDT PC TROPONIN QUANTITATIVE STAT 04/24/2023 12:16 AM CDT PC ELECTROLYTES PANEL STAT 04/24/2023 12:16 AM CDT PC LAB CBC W/DIFF & PLT STAT 04/24/2023 12:16 AM CDT TC LAB ER STAT TOTAL HGB STAT 04/24/2023 12:16 AM CDT PC LACTATE (LACTIC ACID) STAT 04/24/2023 12:16 AM CDT PC GASES,BLOOD,ANY COMB OF PH,PCD2,PO2,CO2,HCO2 STAT 04/24/2023 12:16 AM CDT PC CULTURE,BACTERIAL,DE FINATIVE,AEROBIC;BLO OD STAT 04/24/2023 12:16 AM CDT ED US CRITICAL CARE STAT 04/23/2023 1 1:59 PM CDT documented in this encounter Results * (ABNORMAL) POC GLUCOSE (04/27/2023 12:07 PM CDT) Pathologist [facility] POC Glucose 149(H) 70 - 100 mg/dL [facility] POINT OF CARE Blood 04/27/2023 12:0 7 PM CDT Mik Ramos MD LABORATORY [facility] POINT OF CARE [address] [place] [address] * (ABNORMAL) PANEL HEPATIC FUNCTION (04/27/2023 9:34 AM CDT) [facility] Total Protein 6.2(L) 6.4 - 8.3 g/dL [facility] Albumin 3.4(L) 3.8 - 5.1 g/dL [facility] Bili Total 0.2 <=1.2 mg/dL [facility] Bili Direct <0.2 <=0.3 mg/dL [facility] Alk Phos 227(H) 40 - 129 IU/L [facility] ALT (SGPT) 47(H) <=41 IU/L [facility] AST(SGOT) 54(H) 5 - 40 IU/L [facility] Blood 04/27/2023 9:34 AM CDT 04/27/2023 9:34 AM CDT Cole Ashraf MD LABORATORY [facility] [place] [address] * (ABNORMAL) PANEL BASIC METABOLIC (BMP) (04/27/2023 9:34 AM CDT) Pathologist [facility] Sodium 140 135 - 148 mEq/L [facility] Potassium 3.8 3.5 - 5.3 mEq/L [facility] Chloride 105 92 - 108 mEq/L [facility] CO2 26 22 - 30 mEq/L [facility] AnGap 9 8 - 16 mEq/L [facility] Glucose 117(H) 70 - 100 mg/dL [facility] BUN 17 8 - 23 mg/dL [facility] Creatinine 1.03 0.70 - 1.25 mg/dL [facility] Calcium 8.8 8.8 - 10.2 mg/dL [facility] eGFR (2020 CKD-EPI) 76 >=60 ml/min/1.7 3m2 [facility] Comment: The estimated glomerular filtration rate (eGFR) was calculated using the CKD-EPI 2020 creatinine equation, which does not include race as a factor. This equation is validated in individuals 18 years of age and older, and eGFR is normalized to a body surface area of 1.73m^2. Blood 04/27/2023 9:34 AM CDT 04/27/2023 10:09 AM CDT Cole Ashraf MD LABORATORY [facility] [address] [address] * (ABNORMAL) CBC WITH PLATELET (04/27/2023 9:34 AM CDT) WBC 4.89 4.00 - 10.00 k/cmm [facility] RBC 3.90(L) 4.60 - 6.00 m/cmm [facility] Hgb 9.1(L) 13.1 - 17.5 g/dL [facility] Hematocrit 31.1(L) 40.0 - 51.0 % [facility] MCV 79.7(L) 80.0 - 100.0 fL [facility] MCH 23.3(L) 25.0 - 32.0 pg [facility] MCHC 29.3(L) 31.0 - 36.0 g/dL [facility] RDW 17.0(H) 11.5 - 14.5 % [facility] Plt 210 150 - 400 k/cmm [facility] MPV 10.0 6.5 - 12.5 fL [facility] Blood 04/27/2023 9:34 AM CDT 04/27/2023 10:09 AM CDT Cole Ashraf MD LABORATORY [address] [address] * (ABNORMAL) POC GLUCOSE (04/27/2023 7:38 AM CDT) POC Glucose 129(H) 70 - 100 mg/dL [facility] POINT OF CARE Blood 04/27/2023 7:38 AM CDT Mik Ramos MD LABORATORY Performing Organization Address City/Select [facility]/ZIP Co de Phone Number [facility] POINT OF [address] [address], [place] * POC GLUCOSE (04/26/2023 9:18 PM CDT) POC Glucose 97 70 - 100 mg/dL [facility] POINT OF [facility] Blood 04/26/2023 9:18 PM CDT Mik Ramos MD LABORATORY Performing Organization Address City/[facility]/ZIP Co de Phone Number [facility] POINT OF [address] [address], [place] * (ABNORMAL) HEMOGLOBIN (04/26/2023 8:18 PM CDT) Hgb 8.3(L) 13.1 - 17.5 g/dL [facility] Blood 04/26/2023 8:18 PM CDT 04/26/2023 8:40 PM CDT Cole Ashraf MD LABORATORY Performing Organization Address City/[facility]/ZIP Co de Phone Number [address] [address] * (ABNORMAL) POC GLUCOSE (04/26/2023 5:25 PM CDT) POC Glucose 165(H) 70 - 100 mg/dL [facility] POINT OF CARE Blood 04/26/2023 5:25 PM CDT Mik Ramos MD LABORATORY Performing Organization Address City/[facility] Co de Phone Number [facility] POINT OF CARE [address] [place] [phone], * (ABNORMAL) POC GLUCOSE (04/26/2023 12:11 PM CDT) POC Glucose 122(H) 70 - 100 mg/dL [facility] POINT OF [facility] Blood 04/26/2023 12:1 1 PM CDT Mik Ramos MD LABORATORY Performing Organization Address [facility] Co de Phone Number [facility] [address] [place] [phone], [place] * (ABNORMAL) PANEL BASIC METABOLIC (BMP) (04/26/2023 8:10 AM CDT) [facility] Sodium 138 135 - 148 mEq/L [facility] Potassium 3.6 3.5 - 5.3 mEq/L [facility] Chloride 106 92 - 108 mEq/L [facility] CO2 22 22 - 30 mEq/L [facility] AnGap 10 8 - 16 mEq/L [facility] Glucose 119(H) 70 - 100 mg/dL [facility] BUN 20 8 - 23 mg/dL [facility] Creatinine 1.14 0.70 - 1.25 mg/dL [facility] Calcium 8.1(L) 8.8 - 10.2 mg/dL [facility] eGFR (2020 CKD-EPI) 67 >=60 ml/min/1.7 3m2 [facility] Comment: The estimated glomerular filtration rate (eGFR) was calculated using the CKD-EPI 2020 creatinine equation, which does not include race as a factor. This equation is validated in individuals 18 years of age and older, and eGFR is normalized to a body surface area of 1.73m^2. Blood 04/26/2023 8:10 AM CDT 04/26/2023 8:19 AM CDT Cole Ashraf MD LABORATORY Performing Organization Address City/[facility]/ZIP Co de Phone Number [facility] [address] [place] [phone] * (ABNORMAL) CBC WITH PLATELET (04/26/2023 8:10 AM CDT) WBC 3.30(L) 4.00 - 10.00 k/cmm [facility] RBC 3.51(L) 4.60 - 6.00 m/cmm [facility] Hgb 8.3(L) 13.1 - 17.5 g/dL [facility] Hematocrit 27.2(L) 40.0 - 51.0 % [facility] MCV 77.5(L) 80.0 - 100.0 fL [facility] MCH 23.6(L) 25.0 - 32.0 pg [facility] MCHC 30.5(L) 31.0 - 36.0 g/dL [facility] RDW 17.2(H) 11.5 - 14.5 % [facility] Plt 170 150 - 400 k/cmm [facility] MPV 10.3 6.5 - 12.5 fL [facility] Blood 04/26/2023 8:10 AM CDT 04/26/2023 8:19 AM CDT Cole Ashraf MD LABORATORY Performing Organization Address City/[facility]/ZIP Co de Phone Number [facility] [address] [address] * (ABNORMAL) POC GLUCOSE (04/26/2023 7:21 AM CDT) POC Glucose 131(H) 70 - 100 mg/dL [facility] PO[facility] CARE Blood 04/26/2023 7:21 AM CDT Mik Ramos MD LABORATORY [facility] - POINT OF CARE [address] [place] [phone], * (ABNORMAL) HEMOGLOBIN (04/26/2023 2:42 AM CDT) Hgb 8.0(L) 13.1 - 17.5 g/dL [facility] Blood 04/26/2023 2:42 AM CDT 04/26/2023 2:47 AM CDT [place] [address] * (ABNORMAL) POC GLUCOSE (04/25/2023 9:17 PM CDT) POC Glucose 109(H) 70 - 100 mg/dL [facility] Blood 04/25/2023 9:17 PM CDT Mik Ramos MD LABORATORY Performing Organization Address City/[facility]/ZIP Co de Phone Number [facility] POINT OF [address] * (ABNORMAL) HEMOGLOBIN (04/25/2023 7:12 PM CDT) Hgb 8.5(L) 13.1 - 17.5 g/dL [facility] Blood 04/25/2023 7:12 PM CDT 04/25/2023 7:28 PM CDT Kristian Schaffer MD LABORATORY Performing Organization Address City/[facility]/ZIP Co de Phone Number [address] [address] * (ABNORMAL) POC GLUCOSE (04/25/2023 5:17 PM CDT) POC Glucose 138(H) 70 - 100 mg/dL [facility] POINT OF CARE Blood 04/25/2023 5:17 PM CDT Mik Ramos MD LABORATORY [facility] POINT OF CARE [address] [place] [address] * (ABNORMAL) POC GLUCOSE (04/25/2023 12:13 PM CDT) Pathologist [facility] POC Glucose 150(H) 70 - 100 mg/dL [facility] POINT OF CARE Blood 04/25/2023 12:1 3 PM CDT Mik Ramos MD LABORATORY Performing Organization Address [facility] Co de Phone Number [facility] POINT OF CARE [address] [place] [phone], [place] * POC GLUCOSE (04/25/2023 9:09 AM CDT) Pathologist [facility] POC Glucose 93 70 - 100 mg/dL [facility] POINT OF [facility] Blood 04/25/2023 9:09 AM CDT Mik Ramos MD LABORATORY Performing Organization Address [facility] de Phone Number [facility] POINT OF [address] [address], [place] * (ABNORMAL) PANEL HEPATIC FUNCTION (04/25/2023 8:03 AM CDT) Pathologist [facility] Total Protein 6.0(L) 6.4 - 8.3 g/dL [facility] Albumin 3.3(L) 3.8 - 5.1 g/dL [facility] Bili Total 0.4 <=1.2 mg/dL [facility] Bili Direct <0.2 <=0.3 mg/dL [facility] Alk Phos 243(H) 40 - 129 IU/L [facility] ALT (SGPT) 63(H) <=41 IU/L [facility] AST(SGOT) 78(H) 5 - 40 IU/L [facility] Blood 04/25/2023 8:03 AM CDT 04/25/2023 8:38 AM CDT Cole Ashraf MD LABORATORY Performing Organization Address City/[facility]/ZIP Co de Phone Number [facility] [address] [address] * (ABNORMAL) PANEL BASIC METABOLIC (BMP) (04/25/2023 8:03 AM CDT) Pathologist [facility] CO2 22 22 - 30 mEq/L [facility] Glucose 101(H) 70 - 100 mg/dL [facility] BUN 26(H) 8 - 23 mg/dL [facility] Creatinine 1.39(H) 0.70 - 1.25 mg/dL [facility] Calcium 8.4(L) 8.8 - 10.2 mg/dL [facility] Sodium 137 135 - 148 mEq/L [facility] Potassium 3.6 3.5 - 5.3 mEq/L [facility] Chloride 103 92 - 108 mEq/L [facility] AnGap 12 8 - 16 mEq/L [facility] eGFR (2020 CKD-EPI) 53(L) >=60 ml/min/1.7 3m2 [facility] Comment: The estimated glomerular filtration rate (eGFR) was calculated using the CKD-EPI 2020 creatinine equation, which does not include race as a factor. This equation is validated in individuals 18 years of age and older, and eGFR is normalized to a body surface area of 1.73m^2. Blood 04/25/2023 8:03 AM CDT 04/25/2023 8:38 AM CDT Cole Ashraf MD LABORATORY [facility] [address] [place] [phone] * (ABNORMAL) CBC WITH PLATELET (04/25/2023 8:03 AM CDT) WBC 4.60 4.00 - 10.00 k/cmm [facility] RBC 3.93(L) 4.60 - 6.00 m/cmm [facility] Hgb 9.4(L) 13.1 - 17.5 g/dL [facility] Hematocrit 31.3(L) 40.0 - 51.0 % [facility] MCV 79.6(L) 80.0 - 100.0 fL [facility] MCH 23.9(L) 25.0 - 32.0 pg [facility] MCHC 30.0(L) 31.0 - 36.0 g/dL [facility] RDW 17.4(H) 11.5 - 14.5 % [facility] Plt 188 150 - 400 k/cmm [facility] MPV 9.9 6.5 - 12.5 fL [facility] Blood 04/25/2023 8:03 AM CDT 04/25/2023 8:38 AM CDT Cole Ashraf MD LABORATORY [facility] [address] [place] [phone] * (ABNORMAL) POC GLUCOSE (04/25/2023 5:03 AM CDT) POC Glucose 102(H) 70 - 100 mg/dL [facility] POINT OF [facility] Blood 04/25/2023 5:03 AM CDT Mki Ramos MD LABORATORY Performing Organization Address City/[facility] Co de Phone Number [facility] POINT OF CARE [address] [place] [phone], * (ABNORMAL) POC GLUCOSE (04/24/2023 8:56 PM CDT) POC Glucose 143(H) 70 - 100 mg/dL [facility] POINT OF CARE Blood 04/24/2023 8:56 PM CDT Mik Ramos MD LABORATORY Performing Organization Address City/[facility]/ZIP Co de Phone Number [facility] POINT OF CARE [address] [place] [address], [place] * (ABNORMAL) POC GLUCOSE (04/24/2023 6:09 PM CDT) POC Glucose 150(H) 70 - 100 mg/dL [facility] POINT OF CARE Blood 04/24/2023 6:09 PM CDT Mik Ramos MD LABORATORY [facility] CARE [address] [place] [phone], * BLOOD AEROBIC/ANAEROBIC CULTURE (04/24/2023 3:11 PM CDT) Final Report No growth after 5 days. [facility] Blood (Peripheral) 04/24/2023 3:11 PM CDT 04/24/2023 4:01 PM CDT Swapna Whitney MD LAB MICROBIOLOGY Performing Organization Address [facility] Co de Phone Number [address] [address] * BLOOD AEROBIC/ANAEROBIC CULTURE (04/24/2023 3:11 PM CDT) Final Report No growth after 5 days. [facility] Blood (Peripheral) 04/24/2023 3:11 PM CDT 04/24/2023 4:01 PM CDT Narrative [facility] - 04/30/2023 8:00 AM CDT Blood volume less than 5 mL. Culture results may be compromised. Suggest repeat collection. Swapna Whitney MD LAB MICROBIOLOGY Performing Organization Address [facility] Co de Phone Number [address] [address] * POC GLUCOSE (04/24/2023 11:46 AM CDT) POC Glucose 85 70 - 100 mg/dL [facility] POINT OF CARE Blood 04/24/2023 11:4 6 AM CDT Mik Ramos MD LABORATORY Performing Organization Address [facility] Co de Phone Number [facility] POINT OF CARE [address] [place] [phone], * .Post Sedation Immediate (04/24/2023 10:46 AM CDT) Narrative Mik Dominguez MD - 04/24/2023 10:46 AM CDT Mik Dominguez MD ? 04/24/2023 ??4:59 PM .Post Sedation Immediate Date/Time: 04/24/2023 10:46 AM Performed by: Noé Morris MD Authorized by: Mik Dominguez MD ?? Sedation: Sedation type: moderate (conscious) sedation ??Reassessment: Immediately prior to administration of medications, the patient was re-assessed for adequacy to receive sedatives ?? The patient returned to the pre-procedure baseline Sedation level obtained: moderate sedation There were no complications during sedation. Procedure: egd Pre Procedure Diagnosis: Duodenal mass Post Procedure Diagnosis: Duodenal mass Dry Cleaner Hand(s): Noé Morris MD See Procedural note in Chart Review for further information regarding the procedure details. Specimens have been collected. (Duodenal biopsies) There were no procedural complications. The estimated blood loss during this procedure was: 0mL Procedure location: ICU Mik Dominguez MD PROCEDURES * SURGICAL PATHOLOGY (04/24/2023 10:20 AM CDT) SURG PATH FINAL ?Surgical Pathology Report Collection Date: ?04/24/2023 10:20 CDT ?Ordering Physician: ? MIK DOMINGUEZ Received Date: ?04/24/2023 15:03 CDT ?Accession Number: ? [id number] ? Surgical Pathology Final Report Specimen Type: Small intestine, duodenum, 2nd and 3rd portion, biopsy Final Diagnosis: Small intestine, duodenum, 2nd and 3rd portion, biopsy - Necroinflammatory (ulcer) debris and duodenal mucosa with acute and chronic inflammation. CMV immunohistochemistry is negative. No evidence of malignancy. * ??Report Electronically Signed By ??* ?? Salma Franco MD ?? 04.26.2023 14:58 Clinical History: Clinical Diagnosis: Duodenal mass, rule out malignancy ESB/ESB 08.16.2023 15:08 Gross Description: Container designated: A. Fixative: Formalin. Number of pieces: 5. Dimensions: 0.1-0.2 cm. Number of cassettes: A1, entirely submitted. (ESB) ESB/ESB 04.24.2023 15:08 Microscopic Description: Microscopic examination performed and findings are reflected in the final diagnosis. Immunohistochemical stains are performed with appropriate control reactions. ? Cytokeratin immunostain shows no evidence of an infiltrative epithelial process. CMV immunohistochemistry is negative. CD3 and CD20 shows a polymorphous population of CD3 positive T-cells and CD20 positive B-cells. I personally examined the relevant preparations and rendered and confirmed the diagnosis. ? Signed - Salma Franco M.D. Attending Pathologist. ESB/ESSindy 04.24.2023 15:08 [facility] AP SPECIMEN (Soft Tissue Surg Path) 04/24/2023 10:20 AM CDT Comment:Specimen A Routine gross and microscopic examination Tissue: Small Bowel Site: Small Bowel: Duodenum, 2nd and 3rd portion Procedure: biopsy Clinical Diagnosis: R/O malignancy Clinical Description: Mass Mik Dominguez MD LAB PATHOLOGY [facility] [address] [place] [phone] * UPPER GI ENDOSCOPY (04/24/2023 9:52 AM CDT) 04/24/2023 9:52 AM CDT Narrative [facility] - 04/24/2023 3:45 PM CDT Gastroenterology Lab Patient Name: Hola Burnette ?Procedure Date: 04/24/2023 9:52 AM ?Date of : 1950 Admit Type: Inpatient ? Age: 72 Gender: Male Procedure: ? Upper GI endoscopy Indications: ? Abnormal CT of the GI tract Providers: ? Mik Dominguez MD, Noé Morris (Fellow), Ailyn Caruso RN, Sandra Wise RN Referring MD: Medicines: ? Fentanyl 150 micrograms IV, Midazolam 6 mg IV Complications: ? No immediate complications. Procedure: ? Pre-Anesthesia Assessment: - See pre-sedation assessment in [facility]. - The risks and benefits of the procedure and the sedation options and risks were discussed with the patient. All questions were answered and informed consent was obtained. After obtaining informed consent, the scope was passed under direct vision. Throughout the procedure, the patient's blood pressure, pulse, and oxygen saturations were monitored continuouslyThe Endoscope - Gastro was introduced through the mouth, and advanced to the third part of duodenum. The upper GI endoscopy was accomplished without difficulty. The patient tolerated the procedure well. Carbon dioxide was used to insufflate the lumen. Moderate Sedation: Moderate (conscious) sedation was administered by the endoscopy nurse and supervised by the endoscopist. The following parameters were monitored: oxygen saturation, heart rate, blood pressure, and response to care. Total physician intraservice time was 18 minutes. Findings: The esophagus was normal. The cardia and gastric fundus were normal on retroflexion. Striped moderately erythematous mucosa without bleeding was found in the entire examined stomach. The duodenal bulb was normal. Diffuse severe mucosal changes characterized by congestion and nodularity were found in the second portion of the duodenum. An acquired malignant-appearing, intrinsic moderate stenosis (approx 1 cm diameter, approx 2 cm long) was found in the second portion of the duodenum and was traversed. Beyond this area, severe, circumferential and malignant-appearing changes were noted. See below. Diffuse severe mucosal changes characterized by nodularity and ulceration were found in the third portion of the duodenum. This area was highly concerning for malignancy with widespead necrosis with some areas of tunnelling. Biopsies were taken with a cold forceps for histology. Verification of patient identification for the specimen was done by the physician and nurse. Patient Profile: ? 72 year old male, hx of T2DM, CVA, HTN presenting with sepsis and CT imaging concerning for duodenal mass, proceeding to EGD Impression: ?- Normal esophagus. - Erythematous mucosa in the stomach. - Normal duodenal bulb. - Severe mucosal changes in the proximal duodenum characterized by severe edema. 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 - Severe mucosal changes in the 3rd portion of the duodenum concerning for malignancy. Biopsied. Recommendation: ?- Once daily 40 mg PPI - Advance to soft/low residue diet today. - Await biopsies results. - [facility]. - Consult team will follow. Attending Participation: I was present and participated during the entire procedure, including non-duncan portions. Mik Dominguez MD, [id number] 04/24/2023 3:45:00 PM Noé Kishanasir , [id number] 04/24/2023 11:02:27 AM Number of Addenda: 0 Note Initiated On: 04/24/2023 9:52 AM Mik Dominguez MD GI LAB Performing Organization Address [facility] Co de Phone Number [facility] * POC GLUCOSE (04/24/2023 7:47 AM CDT) POC Glucose 98 70 - 100 mg/dL [facility] Blood 04/24/2023 7:47 AM CDT Mik Ramos MD LABORATORY Performing Organization Address [facility] Co de Phone Number [facility] [address] [place] [address], * COVID-19 SURVEILLANCE (04/24/2023 6:40 AM CDT) COVID-19 Not Detected Not Detected [facility] Comment: This test was developed and its performance characteristics determined by [facility] [employer]. This testing, RT-PCR, has been authorized by the FDA under an Emergency Use Authorization (EUA) for Coronavirus Disease-2019 during the Public Health Emergency. This test has been validated in accordance with the FDA's Guidance Document Policy for EUA use and Accelerated Template for Laboratories Certified to Perform High-Complexity Testing Under CLIA: EUA Template (Updated November 14, 2019)This test is only authorized for the duration of time the declaration that circumstances exist justifying the authorization of the emergency use of in vitro diagnostic tests for detection of SARS-CoV-2 virus and/or diagnosis of COVID-19 infection under section 564(b)(1) of the Act, 21U.S.C. 360bbb-3(b)(1), unless the authorization is terminated or revoked sooner. Nasopharyngeal specimens are the preferred specimens. Nasopharyngeal Swab 04/24/20 6:40 AM CDT 04/24/2023 7:48 AM CDT Narrative [facility] - 04/24/2023 2:37 PM CDT Preferred specimen is Nasopharyngeal swab Is the patient a healthcare employee: No Is the patient a [place] ([employer]) Employee: No Mik Ramos MD LABORATORY Performing Organization Address City/[facility]/ZIP Co de Phone Number [facility] [place] [phone] * PHOSPHORUS (04/24/2023 6:15 AM CDT) Phosphorus 2.5 2.5 - 4.5 mg/dL [facility] Blood 04/24/2023 6:15 AM CDT 04/24/2023 8:32 AM CDT Swapna Whitney MD LABORATORY Performing Organization Address City/[facility] Co de Phone Number [facility] [address] [address] * (ABNORMAL) GLYCOSYLATED HGB - A1C (04/24/2023 6:15 AM CDT) Hemoglobin A1C 6.2(H) 4.0 - 5.6 % [facility] Comment: Increased risk for diabetes (prediabetes): 5.7-6.4% Diabetes: greater than or equal to 6.5% * * In the absence of unequivocal hyperglycemia, diagnosis requires two abnormal test results (i.e. HbA1c and glucose) or two abnormal results from specimens collected at two different timepoints. Estimated Average Glucose 131(H) 68 - 126 [facility] Comment: The ADA recommends reporting an estimated Average Glucose (eAG) with all hemoglobin A1c results using the equation derived from a study of 501 normal diabetic adults. Minority populations were underrepresented and children were not included. The EAG is not equivalent to a fasting glucose. Blood 04/24/2023 6:15 AM CDT 04/24/2023 6:50 AM CDT Mik Ramos MD LABORATORY Performing Organization Address City/[facility]/ZIP Co de Phone Number [facility] [address] [phone] * ICU MAGNESIUM (04/24/2023 6:15 AM CDT) Magnesium 1.8 1.6 - 2.4 mg/dL [facility] Blood 04/24/2023 6:15 AM CDT 04/24/2023 6:50 AM CDT Mik Ramos MD LABORATORY Performing Organization Address [facility] Co de Phone Number [facility] [address] [address] * (ABNORMAL) ICU PANEL BASIC METABOLIC (BMP) (04/24/2023 6:15 AM CDT) Sodium 140 135 - 148 mEq/L [facility] Potassium 3.8 3.5 - 5.3 mEq/L [facility] Chloride 106 92 - 108 mEq/L [facility] CO2 23 22 - 30 mEq/L [facility] AnGap 11 8 - 16 mEq/L [facility] Glucose 100 70 - 100 mg/dL [facility] BUN 28(H) 8 - 23 mg/dL [facility] Creatinine 1.35(H) 0.70 - 1.25 mg/dL [facility] Calcium 8.1(L) 8.8 - 10.2 mg/dL [facility] eGFR (2020 CKD-EPI) 55(L) >=60 ml/min/1.7 3m2 [facility] Comment: The estimated glomerular filtration rate (eGFR) was calculated using the CKD-EPI 2020 creatinine equation, which does not include race as a factor. This equation is validated in individuals 18 years of age and older, and eGFR is normalized to a body surface area of 1.73m^2. Blood 04/24/2023 6:15 AM CDT 04/24/2023 6:50 AM CDT Mik Ramos MD LABORATORY Performing Organization Address [facility] Co de Phone Number [facility] [address] [address] * (ABNORMAL) ICU CBC WITH PLATELET (04/24/2023 6:15 AM CDT) WBC 5.09 4.00 - 10.00 k/cmm [facility] RBC 3.40(L) 4.60 - 6.00 m/cmm [facility] Hgb 8.2(L) 13.1 - 17.5 g/dL [facility] Hematocrit 27.8(L) 40.0 - 51.0 % [facility] MCV 81.8 80.0 - 100.0 fL [facility] MCH 24.1(L) 25.0 - 32.0 pg [facility] MCHC 29.5(L) 31.0 - 36.0 g/dL [facility] RDW 17.1(H) 11.5 - 14.5 % [facility] Plt 169 150 - 400 k/cmm [facility] MPV 10.2 6.5 - 12.5 fL [facility] Blood 04/24/2023 6:15 AM CDT 04/24/2023 6:50 AM CDT Mik Ramos MD LABORATORY Performing Organization Address [facility] Co de Phone Number [facility] [address] [address] * (ABNORMAL) PANEL HEPATIC FUNCTION (04/24/2023 6:15 AM CDT) Total Protein 5.1(L) 6.4 - 8.3 g/dL [facility] Albumin 3.3(L) 3.8 - 5.1 g/dL [facility] Bili Total 0.5 <=1.2 mg/dL [facility] Bili Direct 0.3 <=0.3 mg/dL [facility] Alk Phos 226(H) 40 - 129 IU/L [facility] ALT (SGPT) 65(H) <=41 IU/L [facility] AST(SGOT) 85(H) 5 - 40 IU/L [facility] Blood 04/24/2023 6:15 AM CDT 04/24/2023 6:50 AM CDT Mik Ramos MD LABORATORY Performing Organization Address City/[facility]/ZIP Co de Phone Number [facility] [address] [address] * (ABNORMAL) LIPASE (04/24/2023 6:15 AM CDT) Lipase 12(L) 13 - 60 IU/L [facility] Blood 04/24/2023 6:15 AM CDT 04/24/2023 6:50 AM CDT Mik Ramos MD LABORATORY [facility] [address] [place] [id number] * TROP 6H (04/24/2023 6:15 AM CDT) 6H Trop 18 <=35 ng/L [facility] 6H Delta Not Significant Not Significant [facility] Blood 04/24/2023 6:15 AM CDT 04/24/2023 6:49 AM CDT Mik Ramos MD LABORATORY Performing Organization Address [facility] Co de Phone Number [facility] [address] [address] * CT HEAD NO IV CONTRAST (04/24/2023 2:56 AM CDT) Anatomical Region Laterality Modality Skull Computed Tomogra phy 04/24/2023 3:03 AM CDT Impressions 04/24/2023 8:48 AM CDT Impression: 1. No acute intracranial abnormality. Contrast-enhanced MRI is more sensitive for metastatic disease. 2. Mild chronic small vessel ischemic disease, with chronic lacunar infarction left thalamus. I have personally reviewed the image(s) and initial interpretation, and I agree with the findings as documented by the resident/fellow. Reading Radiologist: Lloyd Walker Resident: Omar Smith Narrative 04/24/2023 8:[address] without contrast Indication: eval for brain mets ?? Technique: Axial thin section CT images through the brain were obtained from the base of the skull through the vertex without intravenous contrast and reviewed in brain, bone and subdural windows. Dose: Total DLP = 952.4 mGy.cm. Comparison: None. Findings: There is no evidence of intracranial hemorrhage, mass effect, midline shift or abnormal extraaxial fluid collection. The ventricles do not appear enlarged out of proportion to the cerebral sulci. Mild periventricular white matter hypoattenuation is nonspecific but likely related to chronic small vessel ischemic disease. Hypoattenuating focus in the left thalamus is likely an old lacunar infarct or an enlarged perivascular space. King-white differentiation is intact throughout both cerebral hemispheres. The bony calvarium and the bones of the skull base appear normal. Mild scattered mucosal thickening in the ethmoid air cells. Mastoid air cells are clear. Procedure Note Lloyd Walker MD - 04/24/[address] without contrast Indication: eval for brain mets Technique: Axial thin section CT images through the brain were obtainedfrom the base of the skull through the vertex without intravenous contrastand reviewed in brain, bone and subdural windows. Dose: Total DLP = 952.4 mGy.cm. Comparison: None. Findings: There is no evidence of intracranial hemorrhage, mass effect,midline shift or abnormal extraaxial fluid collection. The ventricles donot appear enlarged out of proportion to the cerebral sulci. Mildperiventricular white matter hypoattenuation is nonspecific but likelyrelated to chronic small vessel ischemic disease. Hypoattenuating focus inthe left thalamus is likely an old lacunar infarct or an enlargedperivascular space. King-white differentiation is intact throughout bothcerebral hemispheres. The bony calvarium and the bones of the skull base appear normal. Mildscattered mucosal thickening in the ethmoid air cells. Mastoid air cellsare clear. IMPRESSION Impression: 1. No acute intracranial abnormality. Contrast-enhanced MRI is moresensitive for metastatic disease. 2. Mild chronic small vessel ischemic disease, with chronic lacunarinfarction left thalamus. I have personally reviewed the image(s) and initial interpretation, and Iagree with the findings as documented by the resident/fellow. Reading Radiologist: Lloyd Walker Reading Resident: Omar Smith Stephon Hamilton MD RAD CT NEURO * (ABNORMAL) PTT (APTT) (04/24/2023 2:02 AM CDT) APTT 51.5(H) 25.0 - 37.0 sec [facility] Blood 04/24/2023 2:02 AM CDT 04/24/2023 2:45 AM CDT Stephon Hamilton MD LABORATORY [facility] [address] [address] * (ABNORMAL) PROTHROMBIN (PT) & INR (04/24/2023 2:02 AM CDT) Pathologist [facility] PT 15.1(H) 9.0 - 12.5 sec [facility] INR 1.3(H) 0.8 - 1.1 [facility] Comment: Warfarin Therapeutic Range: Standard Intensity: 2.0 - 3.0 High Intensity: 2.5 - 3.5 Blood 04/24/2023 2:02 AM CDT 04/24/2023 2:45 AM CDT Stephon Hamilton MD LABORATORY Performing Organization Address City/[facility]/ZIP Co de Phone Number [facility] [address] [address] * FIBRINOGEN (04/24/2023 2:02 AM CDT) Pathologist [facility] Fibrinogen 390 200 - 400 mg/dL [facility] Blood 04/24/2023 2:02 AM CDT 04/24/2023 2:45 AM CDT Stephon Hamilton MD LABORATORY Performing Organization Address City/[facility]/ZIP Co de Phone Number [facility] [address] [address] * (ABNORMAL) URINALYSIS,TOTAL (04/24/2023 1:46 AM CDT) Pathologist [facility] Color YELLOW YELLOW [facility] Appearance CLEAR CLEAR [facility] Urine Glucose >=1000(A) NEGATIVE mg/dL [facility] Bili UA NEGATIVE NEGATIVE [facility] Ketones TRACE(A) NEGATIVE [facility] Specific Joiner 1.031(A) 1.003 - 1.030 [facility] Blood Ur NEGATIVE Neg-Trace [facility] PH Urine 5.5 5.0 - 7.0 [facility] Protein Ur 30(A) Neg-Trace [facility] Urobilinogen NORMAL NORMAL EU/dL [facility] Nitrite Ur NEGATIVE NEGATIVE [facility] Leuk Est NEGATIVE Neg-Trace [facility] WBC Ur 0-5 0 - 5 perHPF [facility] RBC Ur 0-3 0 - 3 perHPF [facility] SQ EPITH 0-5 0 - 5 perHPF [facility] Mucus 1+ perLPF [facility] Hyaline Casts 0-5 0 - 5 perLPF [facility] Urinalysis Performed at: [facility] Urine 04/24/2023 1:46 AM CDT 04/24/2023 1:46 AM CDT Mik Ramos MD LABORATORY [facility] [address] [address] * CT CHEST/ABD/PELVIS W/IV CONT (04/24/2023 12:52 AM CDT) Anatomical Region Laterality Modality Chest Computed Tomogra phy 04/24/2023 1:01 AM CDT Impressions 04/24/2023 7:48 AM CDT Impression: 1. Nonobstructive masslike thickening of the duodenum. This predominantly involves the third part of the duodenum and extends to the second part of the duodenum near the ampulla, which may explain the mildly dilated common bile duct and distended gallbladder. Recommend correlation with endoscopy. 2. Mild splenomegaly. 3. Mild chronic interstitial pulmonary fibrotic changes. No acute pulmonary opacities. 4. Coronary artery, aortic valve, and mitral annulus calcifications. 5. Sequelae of chronic urinary bladder outlet obstruction, likely related to BPH. I have personally reviewed the image(s) and initial interpretation, and I agree with the findings as documented by the resident/fellow. Reading Radiologist: Rory Unger Reading Resident: Omar Smith Narrative 04/24/2023 7:48 AM CDT Comparison: CT 04/22/2023 Indication: sepsis unknown source. concern fro GB, prostatitis, pneumonia in particular ?? Technique: Volumetric helical acquisition of CT images from the lung apices through the symphysis pubis after the administration of intravenous contrast. DOSE: ?Total DLP = 663 mGy.cm. ?? Findings: CHEST: Heart size is normal. Moderate to severe calcification of the mitral annulus and aortic valve. At least moderate coronary artery calcification. Multiple small scattered mediastinal lymph nodes without pathologic enlargement. Mild symmetric interstitial fibrosis, predominantly peripheral with slight mid and lower lung preference and no honeycombing or traction bronchiectasis. Pleural spaces are clear. Central airways are clear. Small sliding hiatal hernia. ABDOMEN/PELVIS: Liver is unremarkable. Gallbladder remains distended with unchanged small amount of pericholecystic fluid. No radiodense gallstones. Intrahepatic bile ducts are normal in caliber. Common bile duct measures up to 10 mm in diameter in the pancreatic head. Spleen is mildly enlarged measuring 13.3 cm. Unchanged heterogeneous attenuation in the anterior aspect of the spleen of uncertain etiology but favoring infarct. Pancreas is mildly atrophic and fatty infiltrated. No main pancreatic duct dilation. Adrenals are unremarkable. Kidneys and ureters are unremarkable. Urinary bladder is moderately distended with multiple small diverticuli superior bladder wall, no definite bladder mass. Prostate is mildly enlarged. Bowel is nondilated. The wall of the third part of the duodenum is diffusely thickened with focal thickening measuring 2.5 x 3.5 cm. The thickening also extends to the right wall of the second part near the ampulla. Multiple enlarged paraduodenal and superior mesenteric lymph nodes. For example, a precaval lymph node on series 202 image 108 measures 1.5 cm short axis, and a superior mesenteric node on series 202 image 133 measures 1.9 cm short axis. Moderate scattered arterial calcifications. No aneurysm. No ascites or free air. BONES/SOFT TISSUES: No acute or suspicious osseous lesion. Grade 1 anterolisthesis of L4 on L5. Evidence of prior L4 and L5 laminectomies. Severe L4-5 bilateral facet arthropathy. No pars defect. Left humeral head surgical screws/anchors. Bilateral gynecomastia. Procedure Note Rory Unger MD - 04/24/2023 Comparison: CT 04/22/2023 Indication: sepsis unknown source. concern fro GB, prostatitis, pneumoniain particular Technique: Volumetric helical acquisition of CT images from the lungapices through the symphysis pubis after the administration of intravenouscontrast. DOSE: Total DLP = 663 mGy.cm. Findings: CHEST: Heart size is normal. Moderate to severe calcification of the mitralannulus and aortic valve. At least moderate coronary artery calcification.Multiple small scattered mediastinal lymph nodes without pathologicenlargement. Mild symmetric interstitial fibrosis, predominantlyperipheral with slight mid and lower lung preference and no honeycombingor traction bronchiectasis. Pleural spaces are clear. Central airways areclear. Small sliding hiatal hernia. ABDOMEN/PELVIS: Liver is unremarkable. Gallbladder remains distended with unchanged smallamount of pericholecystic fluid. No radiodense gallstones. Intrahepaticbile ducts are normal in caliber. Common bile duct measures up to 10 mm indiameter in the pancreatic head. Spleen is mildly enlarged measuring 13.3 cm. Unchanged heterogeneousattenuation in the anterior aspect of the spleen of uncertain etiology butfavoring infarct. Pancreas is mildly atrophic and fatty infiltrated. No main pancreatic ductdilation. Adrenals are unremarkable. Kidneys and ureters are unremarkable. Urinary bladder is moderatelydistended with multiple small diverticuli superior bladder wall, nodefinite bladder mass. Prostate is mildly enlarged. Bowel is nondilated. The wall of the third part of the duodenum isdiffusely thickened with focal thickening measuring 2.5 x 3.5 cm. Thethickening also extends to the right wall of the second part near theampulla. Multiple enlarged paraduodenal and superior mesenteric lymph nodes. Forexample, a precaval lymph node on series 202 image 108 measures 1.5 cmshort axis, and a superior mesenteric node on series 202 image 133measures 1.9 cm short axis. Moderate scattered arterial calcifications. No aneurysm. No ascites or free air. BONES/SOFT TISSUES: No acute or suspicious osseous lesion. Grade 1 anterolisthesis of L4 onL5. Evidence of prior L4 and L5 laminectomies. Severe L4-5 bilateral facetarthropathy. No pars defect. Left humeral head surgical screws/anchors.Bilateral gynecomastia. IMPRESSION Impression: 1. Nonobstructive masslike thickening of the duodenum. This predominantlyinvolves the third part of the duodenum and extends to the second part ofthe duodenum near the ampulla, which may explain the mildly dilated commonbile duct and distended gallbladder. Recommend correlation withendoscopy. 2. Mild splenomegaly. 3. Mild chronic interstitial pulmonary fibrotic changes. No acutepulmonary opacities. 4. Coronary artery, aortic valve, and mitral annulus calcifications. 5. Sequelae of chronic urinary bladder outlet obstruction, likely relatedto BPH. I have personally reviewed the image(s) and initial interpretation, and Iagree with the findings as documented by the resident/fellow. Reading Radiologist: Rory Unger Reading Resident: Omar Smith Mik Ramos MD RAD CT BODY * BLOOD AEROBIC/ANAEROBIC CULTURE (04/24/2023 12:39 AM CDT) Final Report No growth after 5 days. [facility] Blood (Peripheral) 04/24/2023 12:39 AM CDT 04/24/2023 12:45 AM CDT Mik Ramos MD LAB MICROBIOLOGY Performing Organization Address [facility] Co de Phone Number [facility] [address] [place] [id number] * ED EKG (12-LEAD) (04/24/2023 12:37 AM CDT) 04/24/2023 12:3 7 AM CDT Impressions [facility]IS EKG ORDERS - 04/24/2023 12:37 AM CDT SINUS RHYTHM POSSIBLE INFERIOR MYOCARDIAL INFARCTION , OF INDETERMINATE AGE WITH POSTERIOR EXTENSION ??[30 ms Q WAVE IN II/aVFPROMINENT R WAVE IN V1/V2] ABNORMAL ECG P-R Interval 162 ms QRS Interval 110 ms QT Interval 392 ms QTC Interval 423 ms P [place] 39 QRS [place] 50 T Wave [place] -10 Narrative Procedure Note Lili Stewart MD - 04/24/2023 IMPRESSION SINUS RHYTHM POSSIBLE INFERIOR MYOCARDIAL INFARCTION , OF INDETERMINATE AGE WITHPOSTERIOR EXTENSION [30 ms Q WAVE IN II/aVFPROMINENT R WAVE IN V1/V2] ABNORMAL ECG P-R Interval 162 ms QRS Interval 110 ms QT Interval 392 ms QTC Interval 423 ms P [place] 39 QRS [place] 50 T Wave [place] -10 Mik Ramos MD EKG Performing Organization Address [facility] Co de Phone Number [facility]IS EKG ORDERS * PRECAUTIONARY TUBE (04/24/2023 12:36 AM CDT) Prec Tube Precautionary Blood Bank Specimen Received. [facility] Blood 04/24/2023 12:3 6 AM CDT 04/24/2023 1:33 AM CDT Mik Ramos MD LAB TRANSFUSION SERV ICES [facility] [address] [place] [address] * XR CHEST 1 VIEW AP OR PA* (04/24/2023 12:32 AM CDT) Anatomical Region Laterality Modality Chest Computed Radiogr aphy 04/24/2023 2:41 AM CDT Impressions 04/24/2023 7:05 AM CDT Impression: No acute pulmonary opacity. Unchanged mild chronic interstitial opacities. I have personally reviewed the image(s) and initial interpretation, and I agree with the findings as documented by the resident/fellow. Reading Radiologist: Rory Unger Reading Resident: Omar Smith Narrative 04/24/2023 7:05 AM CDT Exam: XR CHEST 1 VIEW AP OR PA* Indication: STAB Patient ?? Comparison: Radiographs 04/23/2023 Findings: Cardiac mediastinal silhouette is within normal limits. Mild chronic diffuse interstitial opacities. No focal airspace opacity. Pleural spaces are clear. Left humeral head surgical anchors. Procedure Note Rory Unger MD - 04/24/2023 Exam: XR CHEST 1 VIEW AP OR PA* Indication: STAB Patient Comparison: Radiographs 04/23/2023 Findings: Cardiac mediastinal silhouette is within normal limits. Mildchronic diffuse interstitial opacities. No focal airspace opacity. Pleuralspaces are clear. Left humeral head surgical anchors. IMPRESSION Impression: No acute pulmonary opacity. Unchanged mild chronicinterstitial opacities. I have personally reviewed the image(s) and initial interpretation, and Iagree with the findings as documented by the resident/fellow. Reading Radiologist: Rory Unger Reading Resident: Omar Smith Mik Ramos MD RAD XRAY * EXTRA TUBE - KING (04/24/2023 12:16 AM CDT) KING TUBE Stored [facility] Comment:King top (Sodium kaitlynn uride) tubes are stored in the lab for 3 days from the collection date. Blood 04/24/2023 12:1 6 AM CDT 04/24/2023 12:22 AM CDT Mik Ramos MD LABORATORY Performing Organization Address [facility] Co de Phone Number [facility] [address] [address] * EXTRA TUBE - SST (04/24/2023 12:16 AM CDT) SST TUBE Stored [facility] Comment:SST tubes (Serum Sep arator) are stored in the lab for 3 days from the collection date. Blood 04/24/2023 12:1 6 AM CDT 04/24/2023 12:22 AM CDT Mik Ramos MD LABORATORY Performing Organization Address [facility] de Phone Number [facility] [address] [address] * EXTRA TUBE - LIGHT GREEN (04/24/2023 12:16 AM CDT) LIGHT GREEN TUBE Stored [facility] Comment:Green tubes ([place] Heparin) are stored in the lab for 3 days from the collection date. Blood 04/24/2023 12:1 6 AM CDT 04/24/2023 12:22 AM CDT Mik Ramos MD LABORATORY Performing Organization Address [facility] de Phone Number [facility] [address] [address] * HS TROPONIN (04/24/2023 12:16 AM CDT) HS Troponin I 15 <=35 ng/L [facility] Blood 04/24/2023 12:1 6 AM CDT 04/24/2023 12:29 AM CDT Narrative [facility] - 04/24/2023 1:00 AM CDT First Occurrence of the Troponin order is to be drawn Stat by Nursing staff on the unit. Mik Ramos MD LABORATORY Performing Organization Address [facility]/State/ZIP Co de Phone Number [facility] [address] [address] * LACTATE (LACTIC ACID) (04/24/2023 12:16 AM CDT) Pathologist [facility] Lactate 0.9 0.7 - 2.1 mmol/L [facility] Blood 04/24/2023 12:1 6 AM CDT 04/24/2023 12:23 AM CDT Narrative [facility] - 04/24/2023 12:23 AM CDT Send specimen on ice! Mik Ramos MD LABORATORY Performing Organization Address [facility]/ZIP Co de Phone Number [facility] [address] [address] * (ABNORMAL) ED HEMOGLOBIN TOTAL (ED ONLY) (04/24/2023 12:16 AM CDT) Pathologist [facility] Hgb 9.4(L) 13.1 - 17.5 g/dL [facility] Blood 04/24/2023 12:1 6 AM CDT 04/24/2023 12:23 AM CDT Mik Ramos MD LABORATORY Performing Organization Address [facility] Co de Phone Number [facility] [address] [address] * (ABNORMAL) ED CHEMISTRY LABS(NA,K,CL,CO2,GLU,CREAT,CA-IONIZED,ANION GAP) (04/24/2023 12:16 AM CDT) Pathologist [facility] Sodium 138 135 - 148 mEq/L [facility] Chloride 109(H) 92 - 108 mEq/L [facility] AnGap 8 8 - 16 mEq/L [facility] Glucose 162(H) 70 - 100 mg/dL [facility] ICA, Actual 4.26(L) 4.40 - 5.20 mg/dL [facility] ICA, pH Corrected 4.28(L) 4.40 - 5.20 mg/dL [facility] Creatinine 1.51(H) 0.70 - 1.25 mg/dL [facility] BICARB 20(L) 22 - 26 mEq/L [facility] eGFR (2020 CKD-EPI) 48(L) >=60 ml/min/1.7 3m2 [facility] Comment: The estimated glomerular filtration rate (eGFR) was calculated using the CKD-EPI 2020 creatinine equation, which does not include race as a factor. This equation is validated in individuals 18 years of age and older, and eGFR is normalized to a body surface area of 1.73m^2. Potassium 3.6 3.5 - 5.3 mEq/L [facility] Blood 04/24/2023 12:1 6 AM CDT 04/24/2023 12:23 AM CDT Mik Ramos MD LABORATORY [facility] [address] [address] * (ABNORMAL) CBC WITH PLTS/AUTO DIFF (04/24/2023 12:16 AM CDT) WBC 4.82 4.00 - 10.00 k/cmm [facility] RBC 3.61(L) 4.60 - 6.00 m/cmm [facility] Hgb 8.6(L) 13.1 - 17.5 g/dL [facility] Hematocrit 28.9(L) 40.0 - 51.0 % [facility] MCV 80.1 80.0 - 100.0 fL [facility] MCH 23.8(L) 25.0 - 32.0 pg [facility] MCHC 29.8(L) 31.0 - 36.0 g/dL [facility] RDW 17.2(H) 11.5 - 14.5 % [facility] Automated Abs Neutrophil 3.73 1.70 - 6.50 k/cmm [facility] Comment:Preliminary ANC, Fin al Result to Follow Abs Immature Granulocyte 0.02 0.00 - 0.09 k/cmm [facility] Comment:The Immature Granulo cyte Absolute count contains metamyelocytes and myelocytes. Abs Neutrophil 3.73 1.70 - 6.50 k/cmm [facility] [facility] Abs Lymphocyte 0.58(L) 0.80 - 4.00 k/cmm [facility] Abs Monocyte 0.37 0.20 - 1.00 k/cmm [facility] Abs Eosinophil 0.09 0.00 - 0.60 k/cmm [facility] Abs Basophil 0.03 0.00 - 0.20 k/cmm [facility] Plt na 150 - 400 k/cmm [facility] Comment:Fibrin and/or plt cl umps present, unable to report an accurate count. MPV na 6.5 - 12.5 fL [facility] Blood 04/24/2023 12:1 6 AM CDT 04/24/2023 12:29 AM CDT Mik Ramos MD LABORATORY Performing Organization Address [facility] Co de Phone Number [address] [address] * (ABNORMAL) BLOOD GASES (04/24/2023 12:16 AM CDT) PH Dion 7.41 7.32 - 7.42 [facility] PCO2 Dion 33(L) 41 - 51 mmHG [facility] PO2 Dion 47(H) 25 - 40 mmHG [facility] Bicarb Dion 20(L) 24 - 28 mEq/L [facility] O2 Sat Dion 79 % [facility] Base Exc Dion -3.5 -10.0 - 2.0 mEq/L [facility] Blood Venous 04/24/2023 12:1 6 AM CDT 04/24/2023 12:20 AM CDT Mik Ramos MD LABORATORY Performing Organization Address City/[facility]/ZIP Co de Phone Number [facility] [address] [address] * BLOOD AEROBIC/ANAEROBIC CULTURE (04/24/2023 12:16 AM CDT) Final Report No growth after 5 days. [facility] Blood (Peripheral) 04/24/2023 12:16 AM CDT 04/24/2023 12:35 AM CDT Mik Ramos MD LAB MICROBIOLOGY Performing Organization Address City/[facility]/ZIP Co de Phone Number [facility] [address] [address] * ED US CRITICAL CARE (04/23/2023 11:59 PM CDT) Anatomical Region Laterality Modality Ultrasound Narrative 04/26/2023 9:08 AM CDT ED Critical Care Resuscitative Ultrasound ED Cardiac Ultrasound Body Areas Imaged: Heart, Chest Wall/Lungs and Inferior Vena Cava Indications:Shock/Sepsis Window: Subxiphoid, Parasternal Short [place], Parasternal Long [place], Apical 4-Chamber, IVC and Bilateral Lungs Findings: The left ventricular ejection fraction appears: Grossly preserved Normal estimated LVEF by E-Point septal separation (EPSS <7mm) No pericardial effusion identified. RV Dilation present/absent: No significant right ventricular dilation appreciated Lung sliding present bilaterally, No pleural effusion, A-line predominance The IVC diameter appears Mid-range with less than 50% variation with respiration Impression: The left ventricular ejection fraction appears: Grossly preserved No pericardial effusion identified. RV Dilation present/absent: No significant right ventricular dilation appreciated Pneumothorax Not suspected and A-Line predominance consistent with normal lung aeration Findings suggest euvolemia Mik Ramos MD, 04/26/2023 9:07 AM and ED Trauma eFAST Ultrasound Indications: Hypotension, Suspicion of Abdomen Fluid/Blood, Suspicion of Pneumothorax/Hemothorax and Other general symptoms and signs Window: Cardiac Window, Heptorenal Window, Perisplenic Window, Pelvic Window and Thoracic Window Findings: No Pericardial Effusion identified, No Free Intraperitoneal Fluid identified, No Pleural Effusion identified and Lung Sliding Present Bilaterally Impression: No Pericardial Effusion identified, No Free Intraperitoneal Fluid identified, No Pleural Effusion identified and No Pneumothorax Identified Mik Ramos MD, 04/26/2023 9:07 AM Mik Ramos MD RAD ED ULT documented in this encounter Visit Diagnoses Diagnosis Sepsis associated hypotension ()- Primary Unspecified septicemia Sepsis associated hypotension () Unspecified septicemia Duodenal mass Other specified disorder of stomach and duodenum documented in this encounter Admitting Diagnoses Diagnosis Sepsis associated hypotension () Unspecified septicemia documented in this encounter Administered Medications Inactive Administered Medications - up to 3 most recent administrations Medication Order MAR Action Action Date Dose Rate Site acetaminophen tablet 650 mg 650 mg, Oral, Q4H PRN, Starting on Sat04/24/23 at 1540, Until Sat04/24/23 at 1711, Mild Pain (Use First) Given 04/24/2023 4:42 PM CDT 650 mg acetaminophen tablet 650 mg 650 mg, Oral, TID, First dose (after last modification) on Sat04/24/23 at 2000, Until Discontinued Given 04/26/2023 9:30 AM CDT 650 mg Given 04/25/2023 7:29 PM CDT 650 mg Given 04/25/2023 2:11 PM CDT 650 mg acetaminophen tablet 650 mg 650 mg, Oral, TID PRN, Starting on Sat04/26/23 at 1105, Until Sat04/27/23 at 1655, Mild Pain (Use First), Temp > 38.6 C Given 04/26/2023 8:14 PM CDT 650 mg allopurinol (ZYLOPRIM) tablet 300 mg 300 mg, Oral, DAILY, First dose on Sat04/26/23 at 1105, Until Discontinued Given 04/27/2023 9:41 AM CDT 300 mg Given 04/26/2023 2:52 PM CDT 300 mg Reconnex MED REC REVIEW BY PHARMACY Discharge Date: 04/27/2023, Discharge Location: Home, Anticipated Discharge Time: 10 am - 2 pm, Discharge Medication Orders: DC Med Orders Final, Does not apply, PROTOCOL, Starting on Sat04/27/23 at 1148, Until Sat04/27/23 at 1655 enoxaparin (LOVENOX) 40 mg/0.4 mL injection 40 mg 40 mg, Subcutaneous, DAILY, First dose on Sat04/24/23 at 0800, Until Discontinued Given 04/25/2023 7:29 PM CDT 40 mg Abdominal Tissue Given 04/24/2023 9:07 PM CDT 40 mg Ab dominal Tissue fentaNYL (SUBLIMAZE) 100 mcg/2mL injection 25-100 mcg 25-100 mcg, IV Push, INTRA-OP PRN ONCE MAY REPEAT, 10 doses, Starting on Sat04/24/23 at 1002, Until Sat04/24/23 at 1041, Severe Pain (Use First) Given 04/24/2023 10:18 AM CDT 50 mcg Given 04/24/2023 10:14 AM CDT 50 mcg Given 04/24/2023 10:12 AM CDT 50 mcg fentaNYL (SUBLIMAZE) 100 mcg/2mL injection 1 dose, Starting on Sat04/24/23 at 0955, Until Sat04/24/23 at 1017 insulin ASPART (NovoLOG) FlexPen Insulin Order Mode: Fixed Dose, PRIOR to Breakfast dose (Units): 0, PRIOR to Noon meal dose (Units): 0, PRIOR to Evening meal dose (Units): 0, Glucose 130-150 (Units): 0, Glucose 151-200 (Units): 1, Glucose 201-250 (Units): 2, Glucose 251-300 (Units): 3, Glucose 301-350 (Units): 4, Glucose 351-400 (Units): 5, Glucose 401-500 (Units): 6, Glucose GREATER THAN 501 (Units): 7, Glucose GREATER THAN 501 instructions: Call Provider, Subcutaneous, TID AC, First dose on Sat04/24/23 at 0730, Until Discontinued Given 04/26/2023 6:31 PM CDT 1 UNITS Right Upper Arm insulin ASPART (NovoLOG) FlexPen Glucose 201-250 (Units): 0, Glucose 251-300 (Units): 0, Glucose 301-350 (Units): 0, Glucose 351-400 (Units): 3, Glucose 401-450 (Units): 4, Glucose 451-500 (Units): 5, Glucose GREATER THAN 501 (Units): 6, Glucose GREATER THAN 501 instructions: Call provider, Subcutaneous, BEDTIME MAY REPEAT ONCE, First dose on Sat04/24/23 at 2100, Until Discontinued iohexol (OMNIPAQUE) 350 mg/mL injection IV Push, RAD ONE TIME AUTO ACKNOWLEDGE, 1 dose, On Sat04/24/23 at 0055 Given 04/24/2023 12:53 AM CDT 80 mL Left Arm lactated ringer's bolus 1,000 mL 1,000 mL, Intravenous, Administer over 30 Minutes, IV BOLUS, 1 dose, On Sat04/24/23 at 0235 New Bag 04/24/2023 2:38 AM CDT 1,000 mL 2000 mL/hr levothyroxine (SYNTHROID) tablet 112 mcg 112 mcg, Oral, DAILY BEFORE AM MEAL, First dose on Genie 04/25/23 at 0730, Until Discontinued Given 04/27/2023 8:08 AM CDT 112 mcg Given 04/26/2023 6:16 AM CDT 112 mcg Given 04/25/2023 8:37 AM CDT 112 mcg levothyroxine (SYNTHROID) tablet 112 mcg 112 mcg, Oral, USER DEFINED SCHEDULE (Once per day on Sat), First dose on Sat04/25/23 at 0730, Until Discontinued Given 04/27/2023 8:08 AM CDT 112 mcg Given 04/26/2023 6:16 AM CDT 112 mcg Given 04/25/2023 8:34 AM CDT 112 mcg metoprolol tartrate (LOPRESSOR) half tablet 12.5 mg 12.5 mg, Oral, BID, First dose on Sat04/26/23 at 2000, Until Discontinued Given 04/27/2023 9:41 AM CDT 12.5 mg Given 04/26/2023 8:14 PM CDT 12.5 mg midazolam (PF) (VERSED) injection 0.5-2 mg 0.5-2 mg, IV Push, INTRA-OP PRN ONCE JANUARY REPEAT, Starting on Sat04/24/23 at 1002, Until Sat04/24/23 at 1041, Sedation Given 04/24/2023 10:18 AM CDT 2 mg Given 04/24/2023 10:13 AM CDT 1 mg Given 04/24/2023 10:12 AM CDT 1 mg midazolam (PF) (VERSED) injection 1 dose, Starting on Sat04/24/23 at 0956, Until Sat04/24/23 at 1011 norepinephrine 8 mg in 250 mL NaCl 0.9% (LEVOPHED) 250 mL infusion solution 0.01-1 mcg/kg/min ? 89.3 kg (1.6744-167.4375 mL/hr, rounded to 1.7-167.4 mL/hr), Start infusion at (mcg/kg/min): 0.07, Titrate to: MAP, of: 65, Intravenous, CONTINUOUS, Starting on Sat04/24/23 at 0030, Until Sat04/24/23 at 1711 Rate changed 04/24/2023 12:37 AM CDT 0.03 mcg/kg/min 5 mL/hr Rate changed 04/24/2023 12:20 AM CDT 0.05 mcg/kg/min 8.4 m L/hr New Bag 04/24/2023 12:01 AM CDT 0.07 mcg/kg/min 11.7 mL /hr normal saline flush 0.9 % solution 10 mL 10 mL, IV Push, Q5 MIN PRN, Starting on Sat04/26/23 at 0317, Until Sat04/27/23 at 1655, IV Line Flush Given 04/26/2023 3:16 AM CDT 10 mL ondansetron (ZOFRAN) 4 mg/2 mL injection 4 mg 4 mg, IV Push, ONE TIME, 1 dose, On Sat04/26/23 at 2155 Given 04/26/2023 10:03 PM CDT 4 mg ondansetron (ZOFRAN) 4 mg/5 mL oral solution 4 mg 4 mg, Oral, ONE TIME, 1 dose, On Sat04/26/23 at 1220 Given 04/26/2023 1:30 PM CDT 4 mg ondansetron (ZOFRAN) tablet 4 mg 4 mg, Oral, TID PRN, Starting on Sat04/26/23 at 0241, Until Sat04/26/23 at 1207, Nausea/Vomiting (Use First) Given 04/26/2023 2:52 AM CDT 4 mg ondansetron (ZOFRAN) tablet 4 mg 4 mg, Oral, TID WM, First dose (after last modification) on Sat04/26/23 at 1700, Until Discontinued Given 04/27/2023 1:02 PM CDT 4 mg Given 04/27/2023 8:08 AM CDT 4 mg Given 04/26/2023 5:42 PM CDT 4 mg pantoprazole (PROTONIX) injection 40 mg 40 mg, IV Push, Q12H, Administer over 2 Minutes, First dose on Sat04/26/23 at 0230, Until Discontinued Given 04/26/2023 3:15 AM CDT 40 mg pantoprazole (PROTONIX) tablet 40 mg 40 mg, Oral, DAILY, First dose on Sat04/24/23 at 1120, Until Discontinued Given 04/25/2023 8:34 AM CDT 40 mg Given 04/24/2023 1:34 PM CDT 40 mg pantoprazole (PROTONIX) tablet 40 mg 40 mg, Oral, BID, First dose on Sat04/26/23 at 2000, Until Discontinued Given 04/27/2023 8:08 AM CDT 40 mg Given 04/26/2023 8:14 PM CDT 40 mg piperacillin-tazobactam (ZOSYN) 4.5 g in NaCl 0.9% IVPB 4.5 g, Indication (Select One): Infection - Suspected, SITE (Select all that apply): GI/Intra-abdominal, Cultures Ordered? No, Intravenous, ONE TIME, 1 dose, On Sat04/24/23 at 0350 New Bag 04/24/2023 4:20 AM CDT 4.5 g 240 mL/hr piperacillin-tazobactam (ZOSYN) 4.5 g in NaCl 0.9% IVPB 4.5 g, Indication (Select One): Infection - Suspected, SITE (Select all that apply): GI/Intra-abdominal, Cultures Ordered? No, Intravenous, Q6H, First dose on Sat04/24/23 at 1440, Until Discontinued New Bag 04/25/2023 8:34 AM CDT 4.5 g 240 mL /hr New Bag 04/25/2023 3:41 AM CDT 4.5 g 240 mL/hr New Bag 04/24/2023 9:07 PM CDT 4.5 g 240 mL/hr prochlorperazine (COMPAZINE) tablet 10 mg 10 mg, Oral, Q6H PRN, Starting on 04/27/23 at 0955, Until 04/27/23 at 1655, Nausea/Vomiting (Use First) simvastatin (ZOCOR) tablet 20 mg 20 mg, Oral, BEDTIME, First dose on Sat04/26/23 at 2000, Until Discontinued Given 04/26/2023 8:14 PM CDT 20 mg VTE prophylaxis contraindicated Contraindication Reason: Bleeding Risk, GI Bleed, Does not apply, PROTOCOL, Starting on Sat04/26/23 at 1506, Until 04/27/23 at 1655 documented in this encounter Active and Recently Administered Medications Times are shown in CDT. Scheduled Medication Order 04/25/2023 04/26/2023 04/27/2023 acetaminophen tablet 650 mg (CANCELED) 650 mg, Oral, TID, First dose (after last modification) on Sat04/24/23 at 2000, Until Discontinued 0836 (Given - Provider: Aneesh Shane RN)1411 (Given - Provider: Aneesh Shane RN)1929 (Given - Provider: Aneesh Shane RN) 0930 (Given - Provider: Jameel Olivas RN) allopurinol (ZYLOPRIM) tablet 300 mg 300 mg, Oral, DAILY, First dose on Sat04/26/23 at 1105, Until Discontinued 1452 (Given - Provider: Jameel Olivas RN) 0941 (Given - Provider: Jameel Olivas RN) [place] MED REC REVIEW BY PHARMACY(Linked Group 1) Discharge Date: 04/27/2023, Discharge Location: Home, Anticipated Discharge Time: 10 am - 2 pm, Discharge Medication Orders: DC Med Orders Final, Does not apply, PROTOCOL, Starting on 04/27/23 at 1148, Until 04/27/23 at 1655 enoxaparin (LOVENOX) 40 mg/0.4 mL injection 40 mg (CANCELED) 40 mg, Subcutaneous, DAILY, First dose on Sat04/24/23 at 0800, Until Discontinued 192 (Given - Provider: Aneesh Shane RN) insulin ASPART (NovoLOG) FlexPen Insulin Order Mode: Fixed Dose, PRIOR to Breakfast dose (Units): 0, PRIOR to Noon meal dose (Units): 0, PRIOR to Evening meal dose (Units): 0, Glucose 130-150 (Units): 0, Glucose 151-200 (Units): 1, Glucose 201-250 (Units): 2, Glucose 251-300 (Units): 3, Glucose 301-350 (Units): 4, Glucose 351-400 (Units): 5, Glucose 401-500 (Units): 6, Glucose GREATER THAN 501 (Units): 7, Glucose GREATER THAN 501 instructions: Call Provider, Subcutaneous, TID AC, First dose on Sat04/24/23 at 0730, Until Discontinued 0955 (Not Given (removes Due time) - Provider: Aneesh Shane RN - Reason: Per protocol - Comment: Paramiters out of range)1232 (Not Given (removes Due time) - Provider: Aneesh Shane RN - Reason: Per protocol - Comment: Parameters out of range)1824 (Not Given (removes Due time) - Provider: Aneesh Shane RN - Reason: Per protocol - Comment: Parameter out of range) 0845 (Not Given (removes Due time) - Provider: Jameel Olivas RN - Reason: Held per order)1302 (Not Given (removes Due time) - Provider: Jameel Olivas RN - Reason: Held per order)1828 (Dual Sign-Off - Provider: Jameel Olivas RN)1831 (Given - Provider: Jameel Olivas RN) 0753 (Not Given (removes Due time) - Provider: Jameel Olivas RN - Reason: Held per order)1226 (Not Given (removes Due time) - Provider: Jameel Olivas RN - Reason: Held per order) insulin ASPART (NovoLOG) FlexPen Glucose 201-250 (Units): 0, Glucose 251-300 (Units): 0, Glucose 301-350 (Units): 0, Glucose 351-400 (Units): 3, Glucose 401-450 (Units): 4, Glucose 451-500 (Units): 5, Glucose GREATER THAN 501 (Units): 6, Glucose GREATER THAN 501 instructions: Call provider, Subcutaneous, BEDTIME MAY REPEAT ONCE, First dose on Sat04/24/23 at 2100, Until Discontinued 2228 (Not Given (removes Due time) - Provider: Aneesh Shane RN - Reason: Per protocol - Comment: Parameter out of range) 2138 (Not Given (removes Due time) - Provider: Juliann Winn RN - Reason: Per protocol) levothyroxine (SYNTHROID) tablet 112 mcg 112 mcg, Oral, DAILY BEFORE AM MEAL, First dose on Sat04/25/23 at 0730, Until Discontinued 0837 (Given - Provider: Aneesh Shane RN) 0616 (Given - Provider: Beata More RN) 0808 (Given - Provider: Jameel Olivas RN) levothyroxine (SYNTHROID) tablet 112 mcg 112 mcg, Oral, USER DEFINED SCHEDULE (Once per day on Sat), First dose on Sat04/25/23 at 0730, Until Discontinued 0834 (Given - Provider: Aneesh Shane RN - Comment: Patient takes an extra dose on Sat,, FRI, & SAT) 0616 (Given - Provider: Beata More RN) 0808 (Given - Provider: Jameel Olivas RN) metoprolol tartrate (LOPRESSOR) half tablet 12.5 mg 12.5 mg, Oral, BID, First dose on Sat04/26/23 at 2000, Until Discontinued 2013 (Given - Provider: Juliann Winn RN) 0941 (Given - Provider: Jameel Olivas RN) ondansetron (ZOFRAN) 4 mg/2 mL injection 4 mg (COMPLETED) 4 mg, IV Push, ONE TIME, 1 dose, On Sat04/26/23 at 2155 2203 (Given - Provider: Juliann Winn RN) ondansetron (ZOFRAN) 4 mg/5 mL oral solution 4 mg (COMPLETED) 4 mg, Oral, ONE TIME, 1 dose, On Sat04/26/23 at 1220 1330 (Given - Provider: Jameel Olivas RN) ondansetron (ZOFRAN) tablet 4 mg 4 mg, Oral, TID WM, First dose (after last modification) on Sat04/26/23 at 1700, Until Discontinued 1742 (Given - Provider: Jameel Olivas RN) 0808 (Given - Provider: Jameel Olivas RN)1302 (Given - Provider: Jameel Olivas RN) pantoprazole (PROTONIX) injection 40 mg (CANCELED) 40 mg, IV Push, Q12H, Administer over 2 Minutes, First dose on Sat04/26/23 at 0230, Until Discontinued 0315 (Given - Provider: Beata More RN) pantoprazole (PROTONIX) tablet 40 mg (CANCELED) 40 mg, Oral, DAILY, First dose on Sat04/24/23 at 1120, Until Discontinued 0834 (Given - Provider: Aneesh Shane RN) pantoprazole (PROTONIX) tablet 40 mg 40 mg, Oral, BID, First dose on Sat04/26/23 at 2000, Until Discontinued 2013 (Given - Provider: Juliann Winn RN) 0808 (Given - Provider: Jameel Olivas RN) piperacillin-tazobactam (ZOSYN) 4.5 g in NaCl 0.9% IVPB (CANCELED) 4.5 g, Indication (Select One): Infection - Suspected, SITE (Select all that apply): GI/Intra-abdominal, Cultures Ordered? No, Intravenous, Q6H, First dose on Sat04/24/23 at 1440, Until Discontinued 0341 (New Bag - Provider: Mckayla Knox RN)0425 (Infusion completed - Provider: Mckayla Knox RN)0834 (New Bag - Provider: Aneesh Shane RN)0915 (Infusion completed - Provider: Aneesh Shane RN) simvastatin (ZOCOR) tablet 20 mg 20 mg, Oral, BEDTIME, First dose on Sat04/26/23 at 2000, Until Discontinued 2013 (Given - Provider: Juliann Winn RN) VTE prophylaxis contraindicated(Linked Group 2) Contraindication Reason: Bleeding Risk, GI Bleed, Does not apply, PROTOCOL, Starting on Sat04/26/23 at 1506, Until 04/27/23 at 1655 PRN Medication Order 04/25/2023 04/26/2023 04/27/2023 acetaminophen tablet 650 mg 650 mg, Oral, TID PRN, Starting on Sat04/26/23 at 1105, Until 04/27/23 at 1655, Mild Pain (Use First), Temp > 38.6 C 2013 (Given - Provider: Savana Winn RN) normal saline flush 0.9 % solution 10 mL 10 mL, IV Push, Q5 MIN PRN, Starting on Sat04/26/23 at 0317, Until 04/27/23 at 1655, IV Line Flush 0316 (Given - Provider: Beata More RN) ondansetron (ZOFRAN) tablet 4 mg (CANCELED) 4 mg, Oral, TID PRN, Starting on Sat04/26/23 at 0241, Until Sat04/26/23 at 1207, Nausea/Vomiting (Use First) 0252 (Given - Provider: Beata More, DELON) prochlorperazine (COMPAZINE) tablet 10 mg 10 mg, Oral, Q6H PRN, Starting on 04/27/23 at 0955, Until 04/27/23 at 1655, Nausea/Vomiting (Use First) Linked Groups Order Group 1: DC MED REC REVIEW BY PHARMACYJump to med Discharge Date: 04/27/2023
Discharge Location: Home
Anticipated Discharge Time: 10 am - 2 pm
Discharge Medication Orders: DC Med Orders Final
Does not apply, PROTOCOL, Starting on 04/27/23 at 1148, Until 04/27/23 at 1655 And Discharge Med Rec Final Review by Pharmacy (COMPLETED) Routine, Order to be placed by provider after medications have been entered for discharge and are ready for review by Pharmacist. This order can be placed multiple times if changes or additions have been made to medications for discharge. Choose the Preliminary DC Med Rec review when placing orders prior to the day of discharge. Choose Final DC Med Rec when all medication changes have been entered. If DC Med Rec needed now, please page the Pharmacist covering the patient to inform them.
Discharge Date: 04/27/2023
Discharge Location: Home
Anticipated Discharge Time: 10 am - 2 pm Group 2: VTE prophylaxis contraindicatedJump to med Contraindication Reason: Bleeding Risk, GI Bleed
Does not apply, PROTOCOL, Starting on 04/26/23 at 1506, Until 04/27/23 at 1655 And VTE - Prophylaxis Contraindication Communication (COMPLETED) Contraindication Reason: Bleeding Risk, GI Bleed documented in this encounter
--- OUTSIDE RECORDS SUMMARY | 2023-10-05 12:47 | XMS_ITS | Encounter Summary ---
Author Name Unknown Organization [facility] Address [address] [place] [address] Phone Care Team Providers Care Manager Fiber Name Role Phone Unavailable Primary Care Provider Unavailabl e Reason for Visit * Reason Comments Abdominal Pain * Auth/Cert (Routine) Specialty Diagnoses / Procedures Referred By Contac t Referred To Contact MEDICINE CRITICAL CARE Diagnoses Sepsis associated hypotension () Swapna Whitney MD [address] [address] Micu 2 [facility] [address] [address] Referral ID Status Reason Start Date Expiration Date Visits Re quested Visits Authorized [id number] 1 1 Encounter Details Date Type Department Care Team Description 04/24/2023 10:00 AM CDT - 04/24/2023 10:30 AM CDT Surgery [facility] GI Laboratory [address] [place] [id number] Mik Dominguez MD [address] [place] [id number] GI EGD WITH BIOPSY Social History Tobacco Use Types Packs/Day Years [...] Sign Reading Time Taken Comments Blood Pressure 73/34 04/24/2023 10:30 AM CDT Pulse 100 04/24/2023 10:30 AM CDT Temperature 35.4 ??C (95.7 ??F) 04/24/2023 8:00 AM CD T Respiratory Rate 18 04/24/2023 10:3 0 AM CDT Oxygen Saturation 96% 04/24/2023 10: 30 AM CDT Inhaled Oxygen Concentration - - Weight 86.6 kg (190 lb 14.7 oz) 04/24/2023 4:42 AM CDT Height 175.3 cm (5' 9) 04/24/2023 4:42 AM CDT Body Mass Index 28.18 04/24/2023 5:00 PM [...] any initial sepsis resolved after admission to [facility]. CT and US did not show any evidence of cholecystitis or other signs of infection. The urinalysis was unremarkable. It ispossible that patient had viral gastroenteritis leading to his mild fever and hypotension that has s feliciano resolved. Since arrival to [facility], he has been afebrile and pressor requirements [...] be followed up with PCP or at [facility] -Considered laprascopic biopsy vs repeat EGD with biopsy for assessing superior mesenteric nodes, which can be followed up with PCP or at [facility] -Prescribed Zofran with meals and Compazine for [...] daily. During your hospital course, we held AUTOMATED WEAVER regimen and utilized a LDSSI while in hospital. Upon discharge, stop taking metformin, and resume victoza and Jardiance. Hypertension The patient is on combination lisinopril and HCTZ (Zestoretic AUTOMATED WEAVER. During hospitalization, we held home BP meds [...] % Wt Change from Adm: -3.02 % [place] Body Wt (IBW) Male (kg): 70.74 kg [...] your PCP regarding your recent hospitalization at [facility] (see below, Planned discharge instructions, recommendation to [...] to eat or drink consistently Please call [phone] [phone]) to schedule an [facility] appointment at the [facility] Clinic if -- you have worsening [...] Order Comments: Dr. Smalls, We here at [facility] had the pleasure of taking care of [...] Burnette would like to follow up with [facility] for these concerns and we have sent [...] Your Medications These medications were sent to [id number] [place] [address] - [phone] - [address] [facility] [address] [facility] [address] acetaminophen 325 mg tablet metoprolol tartrate 25 [...] * Discharge Instr - Occupational Therapy* Judy Bragg OTR/Lakshmi - 04/25/2023 12:25 PM CDT Images from [...] of this encounter Progress Notes * Jameel Olivas RN - 04/27/2023 1:55 PM CDT DISCHARGE [...] if they call back with questions. * hCase Hilario - 04/27/2023 12:36 PM CDT SPIRITUAL [...] findings from here and then going to [facility] in [place] for future care. Discussed how travel from [place] to [facility] vs. [place] to [place] is about the same. Met partner Rhona, who was just coming off of a [employer] adventure. Wished pt well and that our team continues to send him thoughts and prayers in his journey. Pt and Rhona thanked me for the visit. Plan: Spiritual Care Team is available to support patient and family as needed via pager [phone]. Chase Hilario, 04/27/2023 12:36 PM Pager: [phone] * Judy Bragg, OTR/L - 04/27/2023 10:59 AM CDT Occupational Therapy [...] each: Self care/Home mgmt/ADL: 25 minutes Judy Bragg, OTR/L Pager: [employer] OT Department Problem: Loss of [place] With ADLs, Risk for Goal: Will complete upper body dressing Description: Patient will complete upper body dressing with Modified [place] (6). Outcome: Met Goal: Will complete lower body dressing Description: Patient will complete lower body dressing with Modified [place] (6). Outcome: Met Goal: Will toilet self Description: Patient will toilet self with Modified [place] (6). Outcome: Met Goal: Patient-specific goals Description: [...] 04/26/2023 3:22 PM Hematology fellow, PGY4 Pager: [phone] or [employer] Associated attestation - Miguel Stanley MD - [...] victoza and metformin 1g daily. ? Hold AUTOMATED WEAVER regimen, Continue LDSSI while in hospital Hypertension On lisinopril and HCTZ AUTOMATED WEAVER. ? Hold home BP meds given soft [...] of state trip. Briefly discussed TCU vs [facility]--patient prefer D/C home with significant other. Pt [...] each: Self care/Home mgmt/ADL: 25 minutes Judy Bragg, OTR/L Pager: [employer] OT Department Problem: Loss of [place] With ADLs, Risk for Goal: Will complete upper body dressing Description: Patient will complete upper body dressing with Modified [place] (6). Outcome: In progress Goal: Will complete lower body dressing Description: Patient will complete lower body dressing with Modified [place] (6). Outcome: In progress Goal: Will toilet self Description: Patient will toilet self with Modified [place] (6). Outcome: In progress Goal: Patient-specific goals Description: Individualized patient goal: Pt will tolerate at least 10 minutes of out of bed functional activity to demonstrate overall increase in activity tolerance for daily activities Outcome: In progress * Valerie Rojas, AUTOMATED WEAVER - 04/26/2023 9:45 AM CDT Physical Therapy Progress Note PT Discharge Recommendations Discharge Recommendations: Safety risk for discharge home today. Anticipate functional limitations will be resolved/addressed (see assessment in note). (anticipate pt may be able to dc in 1 aditionalday, vs may need CONRAD if pt cont [...] program for home, DC teaching with pt/family. AUTOMATED WEAVER Appropriate: Yes Valerie Rojas, AUTOMATED WEAVER 04/26/2023 Pager: [facility] Dept Problem: Decreased Transfer Skills Goal: Patient will transfer supine to/from sit Description: Patient will transfer supine to/from sit with (6) Modified [place] by 04/26/23 to improve safety and level of functional independence for home with support. Outcome: In progress Goal: Patient will transfer bed to/from chair Description: Patient will transfer bed to/from chair with (6) Modified [place] with sliding board or pivot method with [...] with support. Outcome: In progress * Mitzy Falcon, RN - 04/25/2023 7:13 PM CDT Automatic Furnace Operator collected STAT Hgb lab @ 1912. Pt was pleasant. Results pending. Mitzy Falcon, RN, 04/25/2023 7:14 PM * Chase Hilario [...] feet, even with friend's assistance... going to [facility]... then being transported here for more direct care). Compared to [facility], commended medical team for effective and efficient care received. 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 When he retired in 2009, he moved back to [place]. 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 Chase Hilario, 04/25/2023 11:54 AM Pager: [phone] * Dara Ruano LICSW - 04/25/2023 11:03 AM CDT Care Coordination Assessment Patient Name: Hola Burnette Date: 04/25/2023 Expected DC Date: 04/26/2023 Social Information Finance Administrator Used: None needed Decision Maker at Admission: Self Living Situation: Home Facility Admitted From: hospital Name of facility: [facility] Patient Identified Support System: Daughter Services Receiving: None Complex Medical Needs: None Transportation Used for Discharge: Daughter Safety Concerns: None Behavioral Health Concerns: None Patient Family Goals Patient's Discharge Goal: Home Family's Discharge Goal: Home Plan/Interventions Discharge Plan: Home Patient Information Verification Verified demographic information, including SSN, Next of Kin, and Guardianship: Yes Verified PCP: Yes (PCP. Dr Callie Smalls [phone]-) Risks for Readmission: None Summary of pertinent information: SW assisting with assessments today. Bedside visit made. Justine Zarco at bedside. Pt agreeable to speaking with [...] has since re solved. Since arrival to [facility], he has been afebrile and pressor requirements [...] victoza and metformin 1g daily. ? Hold AUTOMATED WEAVER regimen, Continue LDSSI while in hospital Hypertension On lisinopril and HCTZ AUTOMATED WEAVER. ? Hold home BP meds given soft [...] Patient Summary: 72 y.o. man admitted from [facility] with initial concern for sepsis, found to [...] has since re solved. Since arrival to [facility], he has been afebrile and pressor requirements [...] On victoza and metformin 1g daily. Hold AUTOMATED WEAVER regimen, start LDSSI while in hospital Hypertension On lisinopril and HCTZ AUTOMATED WEAVER. Hold home BP meds given soft BP's [...] previous thyroid issue who was transferred from [facility] with N/V x 4 days, and concerns for sepsis. Pt was initiallyseen at outside hospital on 04/[address] chest abdomen pelvis that showed duodenal thickening and gallbladder inflammation. He went home however on the day of admission (04/23), he reports that he started to feel weak and unsteady so he went back to [place] ED. In the [place] ED, he was hypotensive and febrile to 102F. Given concern for sepsis, he was started on vancomycin and Zosyn and transferred to [facility] for further evaluation. Did require up to 0.07 NE during transfer with EMS. Since arrival to [facility], NE was slowly been weaned off. Has [...] Lab Results Component Value Date/Time NA 138 04/24/202315 K 3.6 04/24/202315 CHLORIDE 109 (H) 04/24/202315 GLU 162 (H) [...] Attending Physician: Mik Ramos MD Hinke, Mason, , 04/24/2023 2:53 AM FACULTY NOTE I saw [...] duodenal thickening. Briefly, he was transferred from [place] ED after being found to be hypotensive [...] Duodenal mass Post Procedure Diagnosis: Duodenal mass Heavy Mobile Equipment Repairer(s): Noé Morris MD See Procedural note in [...] REVIEW BY PHARMACY PHARMACY DISCHARGE NOTE Hola Burnette : 1950 Sex: male Pharmacy service was [...] mouth daily. Reduced from 2 tablet daily AUTOMATED WEAVER. metoprolol tartrate 25 mg tablet Commonly known as: LOPRESSOR Take 0.5 tablets (12.5 mg) by mouth twice daily. New - changed from labetalol 100 mg three times daily AUTOMATED WEAVER. ondansetron 4 mg Tabs Commonly known as: [...] daily. Assessment: Pertinent points to note: -- AUTOMATED WEAVER aspirin, labetalol and metformin were discontinued. I have reviewed the patient's medications for discharge and have discussed the necessary changes with the provider. Changes have been made and medication list updated and complete. Please page with any questions. Renata Mendez PharmD 04/27/2023 12:11 For questions regarding this note, please contact pharmacist on service at [facility] ([employer]) [phone]. If no response within needed timeframe, please contact central pharmacy via phone at [phone]. * Samantha Montana, PT - 04/25/2023 6:14 [...] Equipment Status: Patient will provide own equipment (04/25/231799) PT Equipment Recommended: Cane;Four wheeled walker (04/25/23 1800) DIAGNOSIS Patient Active Problem List Diagnosis Sepsis associated hypotension () PT Treatment Diagnosis: Difficulty in Walking R 26.2 Activity Intolerance Z 73.89 Age Related Physical Debility R 54 Muscle Weakness M 62.81 Unsteadiness on Feet R 26.81 PRECAUTIONS Falls Full Code Finance Administrator Used: None needed ACTIVITY Up ad Nicole [...] has since re solved. Since arrival to [facility], he has been afebrile and pressor requirements [...] victoza and metformin 1g daily. ? Hold AUTOMATED WEAVER regimen, Continue LDSSI while in hospital Hypertension On lisinopril and HCTZ AUTOMATED WEAVER. ? Hold home BP meds given soft [...] & Bed Mobility: Sit to Supine: Modified [place] Sit to Stand: Supervision, Set-Up or Standby [...] to safe walking program with SO, rec [id number] at all times until strength improves. Also [...] program for home, DC teaching with pt/family. AUTOMATED WEAVER Appropriate: Yes Participated in goal setting and treatment planning: Patient, Family Agrees with goals and treatment plan: Patient - Yes, Family - Yes. Samantha Montana, PT 04/25/2023 Pager: [facility] Department * Cora Orozco RD - 04/25/2023 3:18 PM CDTAssociated Order(s): [...] Physician None today. Estimated Nutritional Needs: Calories: 0728-1736 Protein: 75-85 grams/day Fluid: 2000 mL/day Nutrition-Related [...] BMI: Body mass index is 28.18 kg/m??. [place] body weight: 72.7 kg Weight history: 116.8 [...] Orozco MS, RD, LD, CNSC Available via [employer] Weekend/Holiday coverage: [employer]-Weekend via [employer] * Judy Bragg, OTR/L - 04/25/2023 12:00 PM CDT OCCUPATIONAL THERAPY [...] Daily BMP # Type 2 DM On AUTOMATED WEAVER metformin, Victoza and Empagliflozin - Hold AUTOMATED WEAVER medications and start LDSSI # gastritis Seen on EGD. No concerning features - Started on Pantoprazole 40 daily - consider H pylori testing # Hypertension On lisinopril and HCTZ AUTOMATED WEAVER. Hold home BP meds given soft BP's # CONNIE on CPAP Continue CPAP # Fibrotic lung disease: Noted on admission H&P Outpatient pulmonary referral - Could be done here or through PCP if he would Past Medical History No past medical history on file. Comorbidities identified that impacted OT assessment and treatment planning? yes Living Situation/Social History: Information obtained From: patient;family / body care manager Help Available at home: yes, 24 hour [...] Flexion Elbow Extension Wrist Flexion Wrist Extension Neuro Urologist Activities of Daily Living: Eating: Supervision/Stand by [...] minutes Self care/Home mgmt/ADL: 10 minutes Therapist: CRUZ Spivey Pager: [employer] Occupational Therapy Department * Mik Dominguez MD [...] cancer s/p thyroidectomy who was transferred from [place] 04/23/23 for management of sepsis. Of note, [...] and unsteady so he went back to [place] ED. He arrived hypotensive and febrile consistent with sepsis so he was started on Vancomycin and Zosyn and transferred to [facility]. Mid route pressures were not stable therefore [...] or change to diet. Since arrival to [facility], he has been afebrile, vital signs within normal range and off pressors. Labssignificant for Hgb 8.2, Plt 169, WBC 5.09, Alk Phos 226, ALT 65, AST 85, Bili Direct 0.3, Bili Total 0.5, Albumin 3.3, Lipase 12, Protein 5.1, BUN 28, Creatinine 1.35. Repeat CT at [facility] consistent with duodenal thickening and dilation of [...] Results Component Value Date/Time WBC 5.09 04/24/2023 0615 RBC 3.40 (L) 04/24/2023 0615 HGB 8.2 (L) 04/24/2023 06 HCT 27.8 (L) 04/24/2023 06 PLT 169 04/24/2023 06 MCV 81.8 04/24/2023 0615 MCH 24.1 (L) 04/24/2023 0615 MCHC 29.5 (L) 04/24/2023614 RDW 17.1 (H) 04/24/2023614 MPV 10.2 04/24/2023614 NEUTNO 3.73 04/24/2023 0016 LYMPHAB 0.58 (L) 04/24/2023 0016 MONOABSNO 0.37 04/24/2023 0016 EOSNUMB 0.09 04/24/2023 0016 BASO 0.03 04/24/2023 0016 Lab Results Component Value Date/Time NA 140 04/24/2023 0615 K 3.8 04/24/2023 0615 CHLORIDE 106 04/24/2023 0615 CO2 23 04/24/2023 0615 GLU 100 04/24/2023 0615 UN 28 (H) 04/24/2023 0615 CR 1.35 (H) 04/24/2023 0615 CA 8.1 (L) 04/24/2023 0615 MG 1.8 04/24/2023 0615 ALBUMIN 3.3 (L) 04/24/2023 0615 TPRO 5.1 (L) 04/24/2023 0615 ALP 226 (H) 04/24/2023 0615 ALT 65 (H) 04/24/2023 0615 AST 85 (H) 04/24/2023 0615 TBILI 0.5 04/24/2023 0615 Previous EGD: None Previous Colonoscopy: None Imaging results: EGD 04/24/23: Duodenal mass Duodenal biopsies: pending Primary care physician: No primary care provider on file. Jose Ugalde MS, 04/24/2023 1:09 PM RESIDENT WITH STUDENT: I [...] hypertension, CONNIE, presenting as a transfer from [place], concern for sepsis 2/2 cholecystitis. N/V since Saturday. April 21, full workupwith evidence of duodenal inflammation and gallbladder wall thickening. Weak this morning and very unsteady, leading to presentation back at [place]. RUQ without cholecystitis Transfer for hypotension and [...] accepts patient for admission. We will redose Paul here in the ED. Hola remained hemodynamically [...] in real time. Please contact me via [employer] staff message if you note any errors requiring clarification. * Mikaela Marsh RN - 04/24/2023 1:00 AM CDT Bed: B02 Expected date: Expected time: Means of arrival: Comments: Hold for STAB 1 * Marilu Gerber RN - 04/24/2023 12:38 AM CDT Pt transferred from [place] for cholecystitis and sepsis. The facility transferred pt due to nothaving ICU capability. Pt became hypotensive upon transfer and was started on norepi 0.07 en route with good results. * Ricardo Hamilton, RN - 04/23/2023 10:59 PM CDT Pt is being transferred from [facility] with Cholecystitis and possible sepsis. [...] CDT Physical Therapy Inpatient Discharge Summary Hola Rosaronanyudelka [id number] Diagnosis Patient Active Problem List Diagnosis Sepsis [...] toward established goals: Pt will benefit from / supervision at home. SO willbe able to provide assistance. Problem: Decreased Transfer Skills Goal: Patient will transfer supine to/from sit Description: Patient will transfer supine to/from sit with (6) Modified [place] by 04/26/23 to improve safety and level of functional independence for home with support. Outcome: In progress Goal: Patient will transfer bed to/from chair Description: Patient will transfer bed to/from chair with (6) Modified [place] with sliding board or pivot method with [...] hour supervision. Patient Name: Hola Burnette MR#: [id number] Date of : 1950 Age: 72 y.o. Hospital Admit date: 04/23/2023 Restrictions / Precautions at Discharge: Activity Level: Up Ad Nicole (04/25/23 0753) Current Medical History / Hospital Course: See MD AGUILAR summary for details. Patient Active Problem List Diagnosis Sepsis associated hypotension () Past Medical History: No past medical history on file. Living Situation/Social History: Information obtained From: patient;family / body care manager (04/25/23 1200) Help Available at home: yes, 24 hour assist (lives w/partner of several years) (04/25/23 1200) Patient is living in a/an : house;house - one story (04/25/23 1200) Bathroom set up: walk in shower (04/25/23 1200) Mobility equipment currently available/used: cane;four wheeled walker with seat (04/25/23 1200) ADL Equipment currently available/used: grab bars;tub / shower chair (04/25/23 1200) Prior Level of Function (AUTOMATED WEAVER): ADLs/IADLs: No assistance required (Independent or modified [...] 20 gauge Anterior;Left Antecubital 04/24/23 0233 -- 3 Peripheral IV 04/26/23 18 gauge;1 1/4 in length Anterior;Right Forearm 04/26/23 002 -- 1 Psychosocial Assessment Within Defined Limits [...] dark brown (per pt, not seen) (04/26/23 021) Stool Consistency: soft (04/25/23 0200) Genitourinary Within Defined Limits Musculoskeletal Within Defined Limits Integumentary Within Defined Limits Patient Lines/Drains/Airways Status Active LDAs Name Placement date Placement time Site Days Peripheral IV 04/24/23 20 gauge Anterior;Left Antecubital 04/24/23 023 -- 2 Peripheral IV 04/26/23 18 gauge;1 1/4 in length Anterior;Right Forearm 04/26/23 0025 -- 1 Psychosocial Within Defined Limits * Nursing Assessment - Juliann Winn RN - 04/26/2023 10:12 PM CDT Nursing Assessment Head to Toe Head to Toe Assessment Shift Summary A&Ox4. Up with SBA with a walker to the bathroom. Pt had emesis x2 this evening. MD notified. MD ordered ONE TIME dose of Zofran. Administered Zofran. Call light within reach. Will continue to monitor with POC.Juliann Winn, DELON, 04/26/2023 10:18 PM Neurologic/Cognitive Within Defined Limits [...] regular BM than recent black stools, but mortgage or loan underwriter did not see BM due to [...] than 1 Psychosocial Within Defined Limits * Cristian Jonas - Tom Santamaria DO - 04/26/2023 3:14 [...] mucosal surfaces or potentially from biopsy site. oTm Santamaria DO, 04/26/2023 3:23 AM * Nursing [...] 04/24/23 20 gauge Anterior;Left Antecubital 04/24/23232 -- 1 Psychosocial Assessment Within Defined Limits [...] 04/24/23 20 gauge Anterior;Left Antecubital 04/24/23232 -- 1 Psychosocial Within Defined Limits * [...] OF TRANSFER NOTE Hola Burnette 1950 male [id number] Date of Admission: 04/23/2023 Date of Transfer: [...] Daily BMP # Type 2 DM On AUTOMATED WEAVER metformin, Victoza and Empagliflozin - Hold AUTOMATED WEAVER medications and start LDSSI # gastritis Seen on EGD. No concerning features - Started on Pantoprazole 40 daily - consider H pylori testing # Hypertension On lisinopril and HCTZ AUTOMATED WEAVER. Hold home BP meds given soft BP's [...] PM Internal Medicine, PGY2 * Transfer of Care - Swapna Whitney MD - 04/24/2023 4:59 PM CDT MICU TRANSFER NOTE Hola Burnette : 1950 Sex: male Date [...] Daily BMP # Type 2 DM On AUTOMATED WEAVER metformin, Victoza and Empagliflozin - Hold AUTOMATED WEAVER medications and start LDSSI # gastritis Seen on EGD. No concerning features - Started on Pantoprazole 40 daily - consider H pylori testing # Hypertension On lisinopril and HCTZ AUTOMATED WEAVER. Hold home BP meds given soft BP's [...] 112 mcg Once per day on Sat piperacillin-tazobactam (ZOSYN) 4.5 g in NaCl [...] informed of Patient Valuables and Belongings Policy (#[id number]): Due to patient condition, [facility] staff will inventory and secure patient valuables Medications brought in by patient?: None A: [facility], via cart. Transferred with: [facility] Transferred with all property: yes cell phone, glasses learning support teacher, CPAP machine. Personal clothing transferred with pt. To [id number] Family made aware of transfer: yes family at bedside R: Tolerated transfer. well P: Commence with cares on receiving unit. Nursing Assessment Head to Toe Head to Toe Assessment Shift Summary Shift Summary Neurologic/Cognitive Within Defined Limits HEENT Within Defined Limits Cardiac Assessment Within Defined Limits except for: Deck Supervisor - bedside telemetry ECG Rhythm: normal sinus [...] above. Please page the Bee Team via [employer] with clinical updates or status changes. Note [...] Cardiac Assessment Within Defined Limits except for: Deck Supervisor - bedside telemetry ECG Rhythm: normal sinus [...] date Placement time Site Days Peripheral IV 08/15/23 20 gauge Anterior;Left Forearm 04/23/23 -- -- 1 Peripheral IV 04/24/23 20 gauge Anterior;Left Antecubital 04/24/23232 -- less than 1 Psychosocial Within Defined [...] Cardiac Assessment Within Defined Limits except for: Deck Supervisor - bedside telemetry Lead Monitored: Lead II [...] 04/24/23 20 gauge Anterior;Left Antecubital 04/24/23232 -- less than 1 Psychosocial Within Defined Limits * Interval Note Provider - Nick Jeter DO - 04/24/2023 2:44 AM CDT Handoff Communication Note for Hospital Admission Verbal handoff received from ED. Patient status: inpatient Brief summary of handoff from ED DIRECTOR MOTION PICTURE: Patient is a 72 y.o. male who was transferred from [facility] with N/V x 4 days, and concerns for sepsis. Initially seen at outside hospital had CT chest abdomen pelvis that showed duodenal thickening and gallbladder inflammation. He went home however on the day of admission started to feel weak and unsteady so he went back to [facility] ED. In the ED, he was hypotensive and febrile (unknown Tmax). Given concern for sepsis, he was started on vancomycin and Zosyn and transferred to [facility] for further evaluation. Did require up to 0.07 nor epi mid route. Since arrival to [facility], [place] has slowly been weaned down but still on 0.03. Preliminary report on imaging here did not show evidence of cholecystitis on ultrasound or CT but did show duodenal thickening (some concern for lymphoma?) and possible gallbladder inflammation. Currently recommending admission for further evaluation and possible GI consult for endoscopy Please page the weight loss sales consultant MICU team via [employer] with clinical updates or status changes. Note is for documentation only and not for billing purposes. Nick Jeter DO, 04/24/2023 2:45 AM * ED Stabilization Note - Cinthya Morgan MD - 04/24/2023 12:34 AM CDT Emergency Medicine Stabilization Room Note Hola Burnette 1950 Sex: male Patient Arrival Date and Time: 04/23/2023 11:58 PM Emergency Medicine Faculty [facility] Stabilization Resident Cinthya Morgan MD, 04/29/2023 2:59 PM Stabilization Team RN: Marilu HCA: Rosa [facility] Consult[facility] None Pre-Hospital Events Hola Burnette is a 72 y.o. male presents to the stabilization room as a transfer from [facility] with concern for sepsis secondary to cholecystitis. He had nausea, vomiting, and constipation on Saturday and Saturday. He started to have abdominal pain in the RUQ after that. He was seen on 04/22 at [facility] where he was noted to have thickened [...] [facility] As the patient arrived to the stabilization room, report was taken from EMS. Patient transferred to STAB cart. Primary survey completed while patient placed on [...] stable condition. Their care was signed out [id number] with the ED team center provider. Please [...] Date and Time:04/23/2023 11:58 PM FACULTY ATTESTATION I, Mik Ramos MD, personally saw the patient, performed critical or duncan portions of the service, and discussed the care with the resident MDM / ED Course Hola Burnette presented to the emergency department with sepsis. Patient seen at [facility] yesterday for vomiting and weakness, diagnosed with cholecystitis and discharged but returned to [facility] with worsening abdominal pain and fever [...] by Alessandro Glass Scribe, 04/24/2023 12:04 AM I, Mik Ramos MD have reviewed the initial documentation provided by the scribe and affirm that it is an accurate restatement of my dictated record of services. Signed: Mik Ramos MD documented in this encounter Plan of [...] (ABNORMAL) POC GLUCOSE (04/27/2023 12:07 PM CDT) [facility] POC Glucose 149(H) 70 - 100 mg/dL [facility] Blood 04/27/2023 12:0 7 PM CDT Mik Ramos MD LABORATORY [facility] [address] [place] [address], * (ABNORMAL) PANEL HEPATIC FUNCTION (04/27/2023 9:34 AM CDT) Pathologist [facility] Total Protein 6.2(L) 6.4 - 8.3 g/dL [facility] Albumin 3.4(L) 3.8 - 5.1 g/dL [facility] Bili Total 0.2 <=1.2 mg/dL [facility] Bili Direct <0.2 <=0.3 mg/dL [facility] Alk Phos 227(H) 40 - 129 IU/L [facility] ALT (SGPT) 47(H) <=41 IU/L [facility] AST(SGOT) 54(H) 5 - 40 IU/L [facility] Blood 04/27/2023 9:34 AM CDT 04/27/2023 9:34 AM CDT Cole Ashraf MD LABORATORY Performing Organization Address [facility] Co de Phone Number [facility] [address] [address] * (ABNORMAL) PANEL BASIC METABOLIC (BMP) (04/27/2023 9:34 AM CDT) Sodium 140 135 - 148 mEq/L [facility] Potassium 3.8 3.5 - 5.3 mEq/L [facility] Chloride 105 92 - 108 mEq/L [facility] CO2 26 22 - 30 mEq/L [facility] AnGap 9 8 - 16 mEq/L [facility] Glucose 117(H) 70 - 100 mg/dL [facility] BUN 17 8 - 23 mg/dL [facility] Creatinine 1.03 0.70 - 1.25 mg/dL [facility] Calcium 8.8 8.8 - 10.2 mg/dL [facility] eGFR (2020 CKD-EPI) 76 >=60 ml/min/1.7 3m2 [facility] Comment: The estimated glomerular filtration rate (eGFR) was calculated using the CKD-EPI 2020 creatinine equation, which does not include race as a factor. This equation is validated in individuals 18 years of age and older, and eGFR is normalized to a body surface area of 1.73m^2. Blood 04/27/2023 9:34 AM CDT 04/27/2023 10:09 AM CDT Cole Ashraf MD LABORATORY Performing Organization Address City/[facility]/ZIP Co de Phone Number [facility] [address] [address] * (ABNORMAL) CBC WITH PLATELET (04/27/2023 9:34 AM CDT) WBC 4.89 4.00 - 10.00 k/cmm [facility] RBC 3.90(L) 4.60 - 6.00 m/cmm [facility] Hgb 9.1(L) 13.1 - 17.5 g/dL [facility] Hematocrit 31.1(L) 40.0 - 51.0 % [facility] MCV 79.7(L) 80.0 - 100.0 fL [facility] MCH 23.3(L) 25.0 - 32.0 pg [facility] MCHC 29.3(L) 31.0 - 36.0 g/dL [facility] RDW 17.0(H) 11.5 - 14.5 % [facility] Plt 210 150 - 400 k/cmm [facility] MPV 10.0 6.5 - 12.5 fL [facility] Blood 04/27/2023 9:34 AM CDT 04/27/2023 10:09 AM CDT Cole Ashraf MD LABORATORY Performing Organization Address City/[facility]/ZIP Co de Phone Number [facility] [address] [place] [address] * (ABNORMAL) POC GLUCOSE (04/27/2023 7:38 AM CDT) POC Glucose 129(H) 70 - 100 mg/dL [facility] Blood 04/27/2023 7:38 AM CDT Mik Ramos MD LABORATORY Performing Organization Address City/[facility] Co de Phone Number [facility]ARE [address] [place], [place] [phone], [place] * POC GLUCOSE (04/26/2023 9:18 PM CDT) POC Glucose 97 70 - 100 mg/dL [facility] Blood 04/26/2023 9:18 PM CDT Mik Ramos MD LABORATORY Performing Organization Address City/[facility]/ZIP Co de Phone Number [facility] [address] [place], [place] [phone], * (ABNORMAL) HEMOGLOBIN (04/26/2023 8:18 PM CDT) Hgb 8.3(L) 13.1 - 17.5 g/dL [facility] Blood 04/26/2023 8:18 PM CDT 04/26/2023 8:40 PM CDT Cole Ashraf MD LABORATORY Performing Organization Address City/[facility]/ZIP Co de Phone Number [facility] [address] [place] [address] * (ABNORMAL) POC GLUCOSE (04/26/2023 5:25 PM CDT) POC Glucose 165(H) 70 - 100 mg/dL [facility] Blood 04/26/2023 5:25 PM CDT Mik Ramos MD LABORATORY Performing Organization Address [facility] Co de Phone Number [facility] [address] [place] [address], * (ABNORMAL) POC GLUCOSE (04/26/2023 12:11 PM CDT) POC Glucose 122(H) 70 - 100 mg/dL [facility] Blood 04/26/2023 12:1 1 PM CDT Mik Ramos MD LABORATORY Performing Organization Address [facility] de Phone Number [facility] [place] [address], * (ABNORMAL) PANEL BASIC METABOLIC (BMP) (04/26/2023 8:10 AM CDT) Sodium 138 135 - 148 mEq/L [facility] Potassium 3.6 3.5 - 5.3 mEq/L [facility] Chloride 106 92 - 108 mEq/L [facility] CO2 22 22 - 30 mEq/L [facility] AnGap 10 8 - 16 mEq/L [facility] Glucose 119(H) 70 - 100 mg/dL [facility] BUN 20 8 - 23 mg/dL [facility] Creatinine 1.14 0.70 - 1.25 mg/dL [facility] Calcium 8.1(L) 8.8 - 10.2 mg/dL [facility] eGFR (2020 CKD-EPI) 67 >=60 ml/min/1.7 3m2 [facility] Comment: The estimated glomerular filtration rate (eGFR) was calculated using the CKD-EPI 2020 creatinine equation, which does not include race as a factor. This equation is validated in individuals 18 years of age and older, and eGFR is normalized to a body surface area of 1.73m^2. Blood 04/26/2023 8:10 AM CDT 04/26/2023 8:19 AM CDT Cole Ashraf MD LABORATORY Performing Organization Address [facility] Co de Phone Number [facility] [address] [address] * (ABNORMAL) CBC WITH PLATELET (04/26/2023 8:10 AM CDT) WBC 3.30(L) 4.00 - 10.00 k/cmm [facility] RBC 3.51(L) 4.60 - 6.00 m/cmm [facility] Hgb 8.3(L) 13.1 - 17.5 g/dL [facility] Hematocrit 27.2(L) 40.0 - 51.0 % [facility] MCV 77.5(L) 80.0 - 100.0 fL [facility] MCH 23.6(L) 25.0 - 32.0 pg [facility] MCHC 30.5(L) 31.0 - 36.0 g/dL [facility] RDW 17.2(H) 11.5 - 14.5 % [facility] Plt 170 150 - 400 k/cmm [facility] MPV 10.3 6.5 - 12.5 fL [facility] Blood 04/26/2023 8:10 AM CDT 04/26/2023 8:19 AM CDT Cole Ashraf MD LABORATORY Performing Organization Address City/[facility]/ZIP Co de Phone Number [facility] [address] [address] * (ABNORMAL) POC GLUCOSE (04/26/2023 7:21 AM CDT) POC Glucose 131(H) 70 - 100 mg/dL [facility] Blood 04/26/2023 7:21 AM CDT Mik Ramos MD LABORATORY Performing Organization Address City/[facility] [place] [address], * (ABNORMAL) HEMOGLOBIN (04/26/2023 2:42 AM CDT) Hgb 8.0(L) 13.1 - 17.5 g/dL [facility] Blood 04/26/2023 2:42 AM CDT 04/26/2023 2:47 AM CDT Cole Ashraf MD LABORATORY Performing Organization Address City/[facility] Co de Phone Number [address] [address] * (ABNORMAL) POC GLUCOSE (04/25/2023 9:17 PM CDT) POC Glucose 109(H) 70 - 100 mg/dL [facility] Blood 04/25/2023 9:17 PM CDT Mik Ramos MD LABORATORY Performing Organization Address City/[facility] Co de Phone Number [facility] POINT [address] [address], * (ABNORMAL) HEMOGLOBIN (04/25/2023 7:12 PM CDT) Hgb 8.5(L) 13.1 - 17.5 g/dL [facility] Blood 04/25/2023 7:12 PM CDT 04/25/2023 7:28 PM CDT Kristian Schaffer MD LABORATORY Performing Organization Address City/[facility]/ZIP Co de Phone Number [facility] [address] [place] [address] * (ABNORMAL) POC GLUCOSE (04/25/2023 5:17 PM CDT) POC Glucose 138(H) 70 - 100 mg/dL [facility] Blood 04/25/2023 5:17 PM CDT Mik Ramos MD LABORATORY Performing Organization Address City/[facility] Co de Phone Number [facility]ARE [address] [place] [address], [place] * (ABNORMAL) POC GLUCOSE (04/25/2023 12:13 PM CDT) [facility] POC Glucose 150(H) 70 - 100 mg/dL [facility] Blood 04/25/2023 12:1 3 PM CDT Mik Ramos MD LABORATORY Performing Organization Address [facility] de Phone Number [facility] [address] [place] [address], [place] * POC GLUCOSE (04/25/2023 9:09 AM CDT) [facility] POC Glucose 93 70 - 100 mg/dL [facility] Blood 04/25/2023 9:09 AM CDT Mik Ramos MD LABORATORY Performing Organization Address City/[facility] Co de Phone Number [facility] [address] [place] [address], [place] * (ABNORMAL) PANEL HEPATIC FUNCTION (04/25/2023 8:03 AM CDT) [facility] Total Protein 6.0(L) 6.4 - 8.3 g/dL [facility] Albumin 3.3(L) 3.8 - 5.1 g/dL [facility] Bili Total 0.4 <=1.2 mg/dL [facility] Bili Direct <0.2 <=0.3 mg/dL [facility] Alk Phos 243(H) 40 - 129 IU/L [facility] ALT (SGPT) 63(H) <=41 IU/L [facility] AST(SGOT) 78(H) 5 - 40 IU/L [facility] Blood 04/25/2023 8:03 AM CDT 04/25/2023 8:38 AM CDT Cole Ashraf MD LABORATORY Performing Organization Address [facility]/ZIP Co de Phone Number [facility] [address] [address] * (ABNORMAL) PANEL BASIC METABOLIC (BMP) (04/25/2023 8:03 AM CDT) CO2 22 22 - 30 mEq/L [facility] Glucose 101(H) 70 - 100 mg/dL [facility] BUN 26(H) 8 - 23 mg/dL [facility] Creatinine 1.39(H) 0.70 - 1.25 mg/dL [facility] Calcium 8.4(L) 8.8 - 10.2 mg/dL [facility] Sodium 137 135 - 148 mEq/L [facility] Potassium 3.6 3.5 - 5.3 mEq/L [facility] Chloride 103 92 - 108 mEq/L [facility] AnGap 12 8 - 16 mEq/L [facility] eGFR (2020 CKD-EPI) 53(L) >=60 ml/min/1.7 3m2 [facility] Comment: The estimated glomerular filtration rate (eGFR) was calculated using the CKD-EPI 2020 creatinine equation, which does not include race as a factor. This equation is validated in individuals 18 years of age and older, and eGFR is normalized to a body surface area of 1.73m^2. Blood 04/25/2023 8:03 AM CDT 04/25/2023 8:38 AM CDT Cole Ashraf MD LABORATORY Performing Organization Address [facility]/ZIP Co de Phone Number [facility] [address] [address] * (ABNORMAL) CBC WITH PLATELET (04/25/2023 8:03 AM CDT) [facility] WBC 4.60 4.00 - 10.00 k/cmm [facility] RBC 3.93(L) 4.60 - 6.00 m/cmm [facility] Hgb 9.4(L) 13.1 - 17.5 g/dL [facility] Hematocrit 31.3(L) 40.0 - 51.0 % [facility] MCV 79.6(L) 80.0 - 100.0 fL [facility] MCH 23.9(L) 25.0 - 32.0 pg [facility] MCHC 30.0(L) 31.0 - 36.0 g/dL [facility] RDW 17.4(H) 11.5 - 14.5 % [facility] Plt 188 150 - 400 k/cmm [facility] MPV 9.9 6.5 - 12.5 fL [facility] Blood 04/25/2023 8:03 AM CDT 04/25/2023 8:38 AM CDT Cole Ashraf MD LABORATORY [facility] [place] [address] * (ABNORMAL) POC GLUCOSE (04/25/2023 5:03 AM CDT) [facility] POC Glucose 102(H) 70 - 100 mg/dL [facility] Blood 04/25/2023 5:03 AM CDT Mik Ramos MD LABORATORY [facility] [address] [place] [address] * (ABNORMAL) POC GLUCOSE (04/24/2023 8:56 PM CDT) [facility] POC Glucose 143(H) 70 - 100 mg/dL [facility]INT [facility] CARE Blood 04/24/2023 8:56 PM CDT Mik Ramos MD LABORATORY [facility] POINT OF CARE [address] [place] [address], * (ABNORMAL) POC GLUCOSE (04/24/2023 6:09 PM CDT) POC Glucose 150(H) 70 - 100 mg/dL [facility]INT [facility] CARE Blood 04/24/2023 6:09 PM CDT Mik Ramos MD LABORATORY Performing Organization Address [facility] Co de Phone Number [facility] POINT [facility] CARE [address] [place] [address], * BLOOD AEROBIC/ANAEROBIC CULTURE (04/24/2023 3:11 PM CDT) Pathologist [facility] Final Report No growth after 5 days. [facility] Blood (Peripheral) 04/24/2023 3:11 PM CDT 04/24/2023 4:01 PM CDT Swapna Whitney MD LAB MICROBIOLOGY Performing Organization Address [facility] Co de Phone Number [facility] [address] [address] * BLOOD AEROBIC/ANAEROBIC CULTURE (04/24/2023 3:11 PM CDT) Pathologist [facility] Final Report No growth after 5 days. [facility] Blood (Peripheral) 04/24/2023 3:11 PM CDT 04/24/2023 4:01 PM CDT Narrative [facility] - 04/30/2023 8:00 AM CDT Blood volume less than 5 mL. Culture results may be compromised. Suggest repeat collection. Swapna Whitney MD LAB MICROBIOLOGY Performing Organization Address City/[facility] Co de Phone Number [facility] [address] [address] * POC GLUCOSE (04/24/2023 11:46 AM CDT) POC Glucose 85 70 - 100 mg/dL [facility] Blood 04/24/2023 11:4 6 AM CDT Mik Ramos MD LABORATORY [facility]ARE [address] [place] [address], [place] * .Post Sedation Immediate (04/24/2023 10:46 AM [...] Duodenal mass Post Procedure Diagnosis: Duodenal mass Heavy Mobile Equipment Repairer(s): Noé Morris MD See Procedural note in [...] Date: ?04/24/2023 15:03 CDT ?Accession Number: ? [id number] ? Surgical Pathology Final Report Specimen Type: [...] Diagnosis: Duodenal mass, rule out malignancy ESB/ESB 04.24.2023 15:08 Gross Description: Container designated: A. Fixative: [...] Signed - Salma Franco M.D. Attending Pathologist. ESB/ESB 04.24.2023 15:08 [facility] AP SPECIMEN (Soft Tissue Surg Path) 04/24/2023 10:20 AM CDT Comment:Specimen A Routine gross and microscopic examination Tissue: Small Bowel Site: Small Bowel: Duodenum, 2nd and 3rd portion Procedure: biopsy Clinical Diagnosis: R/O malignancy Clinical Description: Mass Mik Dominguez MD LAB PATHOLOGY [facility] [address] [address] * UPPER GI ENDOSCOPY (04/24/2023 9:52 AM CDT) 04/24/2023 9:52 AM CDT Narrative [facility] - 04/24/2023 3:45 PM CDT Gastroenterology Lab Patient Name: Hola Burnette ?Procedure Date: 04/24/2023 9:52 AM ?Date of : 1950 Admit Type: Inpatient ? Age: 72 Gender: Male Procedure: ? Upper GI endoscopy Indications: ? Abnormal CT of the GI tract Providers: ? iMk Dominguez MD, Noé Morris (Fellow), Ailyn Caruso RN, Sandra Wise RN Referring MD: Medicines: ? Fentanyl 150 micrograms IV, Midazolam 6 mg IV Complications: ? No immediate complications. Procedure: ? Pre-Anesthesia Assessment: - See pre-sedation assessment in Epic. - The risks and benefits of the [...] procedure, including non-duncan portions. Mik Dominguez MD, [id number] 04/24/2023 3:45:00 PM Noé Morris, , [id number] 04/24/2023 11:02:27 AM Number of Addenda: 0 Note Initiated On: 04/24/2023 9:52 AM Mik Dominguez MD GI LAB Performing Organization Address City/[facility]/ZIP Co de Phone Number [facility] * POC GLUCOSE (04/24/2023 7:47 AM CDT) [facility] POC Glucose 98 70 - 100 mg/dL [facility] Blood 04/24/2023 7:47 AM CDT Mik Ramos MD LABORATORY Performing Organization Address City/[facility]/ZIP Co de Phone Number [facility] CARE [address] [place] [address], * COVID-19 SURVEILLANCE (04/24/2023 6:40 AM CDT) [facility] COVID-19 Not Detected Not Detected [facility] Comment: This test was developed and its performance characteristics determined by [employer] (formerly [employer]). This testing, RT-PCR, has been authorized by [...] AM CDT 04/24/2023 7:48 AM CDT Narrative [facility] - 04/24/2023 2:37 PM CDT Preferred specimen is Nasopharyngeal swab Is the patient a healthcare employee: No Is the patient a [employer] ([employer] [facility] [facility]) Employee: No Mik Ramos MD LABORATORY Performing Organization Address [facility] Co de Phone Number [facility] [address] [address] * PHOSPHORUS (04/24/2023 6:15 AM CDT) Phosphorus 2.5 2.5 - 4.5 mg/dL [facility] Blood 04/24/2023 6:15 AM CDT 04/24/2023 8:32 AM CDT Swapna Whitney MD LABORATORY Performing Organization Address [facility] de Phone Number [facility] [address] [address] * (ABNORMAL) GLYCOSYLATED HGB - A1C (04/24/2023 6:15 AM CDT) Hemoglobin A1C 6.2(H) 4.0 - 5.6 % [facility] Comment: Increased risk for diabetes (prediabetes): 5.7-6.4% Diabetes: greater than or equal to 6.5% * * In the absence of unequivocal hyperglycemia, diagnosis requires two abnormal test results (i.e. HbA1c and glucose) or two abnormal results from specimens collected at two different timepoints. Estimated Average Glucose 131(H) 68 - 126 [facility] Comment: The ADA recommends reporting an estimated Average Glucose (eAG) with all hemoglobin A1c results using the equation derived from a study of 501 normal diabetic adults. Minority populations were underrepresented and children were not included. The EAG is not equivalent to a fasting glucose. Blood 04/24/2023 6:15 AM CDT 04/24/2023 6:50 AM CDT Mik Ramos MD LABORATORY Performing Organization Address City/[facility] Co de Phone Number [facility] [address] [address] * ICU MAGNESIUM (04/24/2023 6:15 AM CDT) Magnesium 1.8 1.6 - 2.4 mg/dL [facility] Blood 04/24/2023 6:15 AM CDT 04/24/2023 6:50 AM CDT Mik Ramos MD LABORATORY Performing Organization Address [facility] Co de Phone Number [facility] [address] [address] * (ABNORMAL) ICU PANEL BASIC METABOLIC (BMP) (04/24/2023 6:15 AM CDT) Sodium 140 135 - 148 mEq/L [facility] Potassium 3.8 3.5 - 5.3 mEq/L [facility] Chloride 106 92 - 108 mEq/L [facility] CO2 23 22 - 30 mEq/L [facility] AnGap 11 8 - 16 mEq/L [facility] Glucose 100 70 - 100 mg/dL [facility] BUN 28(H) 8 - 23 mg/dL [facility] Creatinine 1.35(H) 0.70 - 1.25 mg/dL [facility] Calcium 8.1(L) 8.8 - 10.2 mg/dL [facility] eGFR (2020 CKD-EPI) 55(L) >=60 ml/min/1.7 3m2 [facility] Comment: The estimated glomerular filtration rate (eGFR) was calculated using the CKD-EPI 2020 creatinine equation, which does not include race as a factor. This equation is validated in individuals 18 years of age and older, and eGFR is normalized to a body surface area of 1.73m^2. Blood 04/24/2023 6:15 AM CDT 04/24/2023 6:50 AM CDT Mik Ramos MD LABORATORY Performing Organization Address City/[facility] Co de Phone Number [facility] [address] [address] * (ABNORMAL) ICU CBC WITH PLATELET (04/24/2023 6:15 AM CDT) Pathologist [facility] WBC 5.09 4.00 - 10.00 k/cmm [facility] RBC 3.40(L) 4.60 - 6.00 m/cmm [facility] Hgb 8.2(L) 13.1 - 17.5 g/dL [facility] Hematocrit 27.8(L) 40.0 - 51.0 % [facility] MCV 81.8 80.0 - 100.0 fL [facility] MCH 24.1(L) 25.0 - 32.0 pg [facility] MCHC 29.5(L) 31.0 - 36.0 g/dL [facility] RDW 17.1(H) 11.5 - 14.5 % [facility] Plt 169 150 - 400 k/cmm [facility] MPV 10.2 6.5 - 12.5 fL [facility] Blood 04/24/2023 6:15 AM CDT 04/24/2023 6:50 AM CDT Mik Ramos MD LABORATORY [facility] [address] [address] * (ABNORMAL) PANEL HEPATIC FUNCTION (04/24/2023 6:15 AM CDT) Pathologist [facility] Total Protein 5.1(L) 6.4 - 8.3 g/dL [facility] Albumin 3.3(L) 3.8 - 5.1 g/dL [facility] Bili Total 0.5 <=1.2 mg/dL [facility] Bili Direct 0.3 <=0.3 mg/dL [facility] Alk Phos 226(H) 40 - 129 IU/L [facility] ALT (SGPT) 65(H) <=41 IU/L [facility] AST(SGOT) 85(H) 5 - 40 IU/L [facility] Blood 04/24/2023 6:15 AM CDT 04/24/2023 6:50 AM CDT Mik Ramos MD LABORATORY Performing Organization Address [facility] Co de Phone Number [facility] [address] [address] * (ABNORMAL) LIPASE (04/24/2023 6:15 AM CDT) Lipase 12(L) 13 - 60 IU/L [facility] Blood 04/24/2023 6:15 AM CDT 04/24/2023 6:50 AM CDT Mik Ramos MD LABORATORY Performing Organization Address [facility] Co de Phone Number [address] [address] * TROP 6H (04/24/2023 6:15 AM CDT) 6H Trop 18 <=35 ng/L [facility] 6H Delta Not Significant Not Significant [facility] Blood 04/24/2023 6:15 AM CDT 04/24/2023 6:49 AM CDT Mik Ramos MD LABORATORY Performing Organization Address [facility] de Phone Number [facility] [address] [address] * CT HEAD NO IV CONTRAST (04/24/2023 [...] (ABNORMAL) PTT (APTT) (04/24/2023 2:02 AM CDT) Pathologist [facility] APTT 51.5(H) 25.0 - 37.0 sec [facility] Blood 04/24/2023 2:02 AM CDT 04/24/2023 2:45 AM CDT Stephon Hamilton MD LABORATORY Performing Organization Address City/[facility]/ZIP Co de Phone Number [facility] [address] [address] * (ABNORMAL) PROTHROMBIN (PT) & INR (04/24/2023 2:02 AM CDT) [facility] PT 15.1(H) 9.0 - 12.5 sec [facility] INR 1.3(H) 0.8 - 1.1 [facility] Comment: Warfarin Therapeutic Range: Standard Intensity: 2.0 - 3.0 High Intensity: 2.5 - 3.5 Blood 04/24/2023 2:02 AM CDT 04/24/2023 2:45 AM CDT Stephon Hamilton MD LABORATORY Performing Organization Address [facility] Co de Phone Number [facility] [address] [address] * FIBRINOGEN (04/24/2023 2:02 AM CDT) Pathologist [facility] Fibrinogen 390 200 - 400 mg/dL [facility] Blood 04/24/2023 2:02 AM CDT 04/24/2023 2:45 AM CDT Stephon Hamilton MD LABORATORY Performing Organization Address City/[facility] Co de Phone Number [facility] [address] [address] * (ABNORMAL) URINALYSIS,TOTAL (04/24/2023 1:46 AM CDT) Pathologist [facility] Color YELLOW YELLOW [facility] Appearance CLEAR CLEAR [facility] Urine Glucose >=1000(A) NEGATIVE mg/dL [facility] Bili UA NEGATIVE NEGATIVE [facility] Ketones TRACE(A) NEGATIVE [facility] Specific [place] 1.031(A) 1.003 - 1.030 [facility] Blood Ur NEGATIVE Neg-Trace [facility] PH Urine 5.5 5.0 - 7.0 [facility] Protein Ur 30(A) Neg-Trace [facility] Urobilinogen NORMAL NORMAL EU/dL [facility] Nitrite Ur NEGATIVE NEGATIVE [facility] Leuk Est NEGATIVE Neg-Trace [facility] WBC Ur 0-5 0 - 5 perHPF [facility] RBC Ur 0-3 0 - 3 perHPF [facility] SQ EPITH 0-5 0 - 5 perHPF [facility] Mucus 1+ perLPF [facility] Hyaline Casts 0-5 0 - 5 perLPF [facility] Urinalysis Performed at: [facility] Urine 04/24/2023 1:46 AM CDT 04/24/2023 1:46 AM CDT Mik Ramos MD LABORATORY [facility] [address] [address] * CT CHEST/ABD/PELVIS W/IV CONT (04/24/2023 12:52 [...] Final Report No growth after 5 days. [facility] Blood (Peripheral) 04/24/2023 12:39 AM CDT 04/24/2023 12:45 AM CDT Mik Ramos MD LAB MICROBIOLOGY [facility] [address] [address] * ED EKG (12-LEAD) (04/24/2023 12:37 AM CDT) 04/24/2023 12:3 7 AM CDT Impressions [facility] EKG ORDERS - 04/24/2023 12:37 AM CDT SINUS RHYTHM POSSIBLE INFERIOR MYOCARDIAL INFARCTION , OF INDETERMINATE AGE WITH POSTERIOR EXTENSION ??[30 ms Q WAVE IN II/aVFPROMINENT R WAVE IN V1/V2] ABNORMAL ECG P-R Interval 162 ms QRS Interval 110 ms QT Interval 392 ms QTC Interval 423 ms P [place] 39 QRS [place] 50 T Wave [place] -10 Narrative Procedure Note Lili Stewart MD - 04/24/2023 IMPRESSION SINUS RHYTHM POSSIBLE INFERIOR MYOCARDIAL INFARCTION , OF INDETERMINATE AGE WITHPOSTERIOR EXTENSION [30 ms Q WAVE IN II/aVFPROMINENT R WAVE IN V1/V2] ABNORMAL ECG P-R Interval 162 ms QRS Interval 110 ms QT Interval 392 ms QTC Interval 423 ms P [place] 39 QRS [place] 50 T Wave [place] -10 Mik Ramos MD EKG [facility] EKG ORDERS * PRECAUTIONARY TUBE (04/24/2023 12:36 AM CDT) Prec Tube Precautionary Blood Bank Specimen Received. [facility] Blood 04/24/2023 12:3 6 AM CDT 04/24/2023 1:33 AM CDT Mik Ramos MD LAB TRANSFUSION SERV ICES [facility] [address] [address] * XR CHEST 1 VIEW AP OR [...] Radiologist: Rory Unger Reading Resident: Omar Smith 04/24/2023 7:05 AM CDT Exam: XR CHEST [...] (04/24/2023 12:16 AM CDT) KING TUBE Stored [facility] Comment:King top (Sodium kaitlynn uride) tubes are stored in the lab for 3 days from the collection date. Blood 04/24/2023 12:1 6 AM CDT 04/24/2023 12:22 AM CDT Mik Ramos MD LABORATORY Performing Organization Address [facility] de Phone Number [address] [address] * EXTRA TUBE - SST (04/24/2023 12:16 AM CDT) SST TUBE Stored [facility] Comment:SST tubes (Serum Sep arator) are stored in the lab for 3 days from the collection date. Blood 04/24/2023 12:1 6 AM CDT 04/24/2023 12:22 AM CDT Mik Ramos MD LABORATORY Performing Organization Address [facility] de Phone Number [address] [address] * EXTRA TUBE - LIGHT GREEN (04/24/2023 12:16 AM CDT) LIGHT GREEN TUBE Stored [facility] Comment:Green tubes (Gholson Heparin) are stored in the lab for 3 days from the collection date. Blood 04/24/2023 12:1 6 AM CDT 04/24/2023 12:22 AM CDT Mik Ramos MD LABORATORY Performing Organization Address [facility] Co de Phone Number [address] [address] * HS TROPONIN (04/24/2023 12:16 AM CDT) HS Troponin I 15 <=35 ng/L [facility] Blood 04/24/2023 12:1 6 AM CDT 04/24/2023 12:29 AM CDT Narrative [facility] - 04/24/2023 1:00 AM CDT First Occurrence of the Troponin order is to be drawn Stat by Nursing staff on the unit. Mik Ramos MD LABORATORY Performing Organization Address City/[facility] Co de Phone Number [address] [address] * LACTATE (LACTIC ACID) (04/24/2023 12:16 AM CDT) Pathologist [facility] Lactate 0.9 0.7 - 2.1 mmol/L [facility] Blood 04/24/2023 12:1 6 AM CDT 04/24/2023 12:23 AM CDT Narrative [facility] - 04/24/2023 12:23 AM CDT Send specimen on ice! Mik Ramos MD LABORATORY Performing Organization Address [facility] Co de Phone Number [address] [address] * (ABNORMAL) ED HEMOGLOBIN TOTAL (ED ONLY) (04/24/2023 12:16 AM CDT) Pathologist [facility] Hgb 9.4(L) 13.1 - 17.5 g/dL [facility] Blood 04/24/2023 12:1 6 AM CDT 04/24/2023 12:23 AM CDT Mik Ramos MD LABORATORY Performing Organization Address [facility] Co de Phone Number [address] [address] * (ABNORMAL) ED CHEMISTRY LABS(NA,K,CL,CO2,GLU,CREAT,CA-IONIZED,ANION GAP) (04/24/2023 12:16 AM CDT) Sodium 138 135 - 148 mEq/L [facility] Chloride 109(H) 92 - 108 mEq/L [facility] AnGap 8 8 - 16 mEq/L [facility] Glucose 162(H) 70 - 100 mg/dL [facility] ICA, Actual 4.26(L) 4.40 - 5.20 mg/dL [facility] ICA, pH Corrected 4.28(L) 4.40 - 5.20 mg/dL [facility] Creatinine 1.51(H) 0.70 - 1.25 mg/dL [facility] BICARB 20(L) 22 - 26 mEq/L [facility] eGFR (2020 CKD-EPI) 48(L) >=60 ml/min/1.7 3m2 [facility] Comment: The estimated glomerular filtration rate (eGFR) was calculated using the CKD-EPI 2020 creatinine equation, which does not include race as a factor. This equation is validated in individuals 18 years of age and older, and eGFR is normalized to a body surface area of 1.73m^2. Potassium 3.6 3.5 - 5.3 mEq/L [facility] Blood 04/24/2023 12:1 6 AM CDT 04/24/2023 12:23 AM CDT Mik Ramos MD LABORATORY [facility] [address] [address] * (ABNORMAL) CBC WITH PLTS/AUTO DIFF (04/24/2023 12:16 AM CDT) WBC 4.82 4.00 - 10.00 k/cmm [facility] RBC 3.61(L) 4.60 - 6.00 m/cmm [facility] Hgb 8.6(L) 13.1 - 17.5 g/dL [facility] Hematocrit 28.9(L) 40.0 - 51.0 % [facility] MCV 80.1 80.0 - 100.0 fL [facility] MCH 23.8(L) 25.0 - 32.0 pg [facility] MCHC 29.8(L) 31.0 - 36.0 g/dL [facility] RDW 17.2(H) 11.5 - 14.5 % [facility] Automated Abs Neutrophil 3.73 1.70 - 6.50 k/cmm [facility] Comment:Preliminary ANC, Fin al Result to Follow Abs Immature Granulocyte 0.02 0.00 - 0.09 k/cmm [facility] Comment:The Immature Granulo cyte Absolute count contains metamyelocytes and myelocytes. Abs Neutrophil 3.73 1.70 - 6.50 k/cmm [facility] Abs Lymphocyte 0.58(L) 0.80 - 4.00 k/cmm [facility] Abs Monocyte 0.37 0.20 - 1.00 k/cmm [facility] Abs Eosinophil 0.09 0.00 - 0.60 k/cmm [facility] Abs Basophil 0.03 0.00 - 0.20 k/cmm [facility] Plt na 150 - 400 k/cmm [facility] Comment:Fibrin and/or plt cl umps present, unable to report an accurate count. MPV na 6.5 - 12.5 fL [facility] Blood 04/24/2023 12:1 6 AM CDT 04/24/2023 12:29 AM CDT Mik Ramos MD LABORATORY Performing Organization Address City/[facility]/ZIP Co de Phone Number [facility] [address] [address] * (ABNORMAL) BLOOD GASES (04/24/2023 12:16 AM CDT) PH Dion 7.41 7.32 - 7.42 [facility] PCO2 Dion 33(L) 41 - 51 mmHG [facility] PO2 Dion 47(H) 25 - 40 mmHG [facility] Bicarb Dion 20(L) 24 - 28 mEq/L [facility] O2 Sat Dion 79 % [facility] Base Exc Dion -3.5 -10.0 - 2.0 mEq/L [facility] Blood Venous 04/24/2023 12:1 6 AM CDT 04/24/2023 12:20 AM CDT Mik Ramos MD LABORATORY [facility] [address] [place] [address] * BLOOD AEROBIC/ANAEROBIC CULTURE (04/24/2023 12:16 AM CDT) Final Report No growth after 5 days. [facility] Blood (Peripheral) 04/24/2023 12:16 AM CDT 04/24/2023 12:35 AM CDT Mik Ramos MD LAB MICROBIOLOGY [facility] [address] [place] [address] * ED US CRITICAL CARE (04/23/2023 11:59 PM CDT) Anatomical Region Laterality Modality Ultrasound Narrative 04/26/2023 9:08 AM CDT ED Critical Care Resuscitative Ultrasound ED Cardiac Ultrasound Body Areas Imaged: Heart, Chest Wall/Lungs and Inferior Vena Cava Indications:Shock/Sepsis Window: Subxiphoid, Parasternal Short [place], Parasternal Long [place], Apical 4-Chamber, IVC and Bilateral Lungs Findings: [...] Other specified disorder of stomach and duodenum Duodenal mass Other specified disorder of stomach [...] Given 04/26/2023 2:52 PM CDT 300 mg DC MED REC REVIEW BY PHARMACY Discharge Date: 04/27/2023, Discharge Location: Home, Anticipated Discharge Time: 10 am - 2 pm, Discharge Medication Orders: DC Med Orders Final, Does not apply, PROTOCOL, Starting on 04/27/23 at 1148, Until 04/27/23 at 1655 insulin ASPART (NovoLOG) FlexPen Insulin Order Mode: [...] dose on Sat04/24/23 at 2100, Until Discontinued levothyroxine (SYNTHROID) tablet 112 mcg 112 mcg, [...] Given 04/26/2023 8:14 PM CDT 12.5 mg normal saline flush 0.9 % solution 10 mL 10 mL, IV Push, Q5 MIN PRN, Starting on Sat04/26/23 at 0317, Until Sat04/27/23 at 1655, IV Line Flush Given 04/26/2023 3:16 AM CDT 10 mL ondansetron (ZOFRAN) tablet 4 mg 4 mg, Oral, TID WM, First dose (after last modification) on Sat04/26/23 at 1700, Until Discontinued Given 04/27/2023 1:02 PM CDT 4 mg Given 04/27/2023 8:08 AM CDT 4 mg Given 04/26/2023 5:42 PM CDT 4 mg pantoprazole (PROTONIX) tablet 40 mg 40 mg, Oral, BID, First dose on Sat04/26/23 at 2000, Until Discontinued Given 04/27/2023 8:08 AM CDT 40 mg Given 04/26/2023 8:14 PM CDT 40 mg prochlorperazine (COMPAZINE) tablet 10 mg 10 mg, [...] 0941 (Given - Provider: Jameel Olivas RN) OR MED REC REVIEW BY PHARMACY(Linked Group 1) Discharge Date: 04/27/2023, Discharge Location: Home, Anticipated Discharge Time: 10 am - 2 pm, Discharge Medication Orders: DC Med Orders Final, Does not apply, PROTOCOL, Starting on 04/27/23 at 1148, Until 04/27/23 at 1655 enoxaparin (LOVENOX) 40 mg/0.4 mL injection 40 mg (CANCELED) 40 mg, Subcutaneous, DAILY, First dose on Sat04/24/23 at 0800, Until Discontinued 1929 (Given - Provider: Aneesh Shane RN) insulin [...] protocol - Comment: Parameter out of range) 2137 (Not Given (removes Due time) - Provider: [...] USER DEFINED SCHEDULE (Once per day on Sat Fri Sat), First dose on Sat04/25/23 at 0730, Until Discontinued 0834 (Given - Provider: Aneesh Shane RN - Comment: Patient takes an extra dose on SUN TH,, FRI, & SAT) 0616 (Given - Provider: [...] dose on Sat04/26/23 at 0230, Until Discontinued 031 (Given - Provider: Beata More RN) pantoprazole (PROTONIX) tablet 40 mg (CANCELED) 40 mg, Oral, DAILY, First dose on Sat04/24/23 at 1120, Until Discontinued 08 (Given - Provider: Aneesh Shane RN) pantoprazole [...] Line Flush 0316 (Given - Provider: Beata More, DELON) ondansetron (ZOFRAN) tablet 4 mg (CANCELED) 4 [...]
--- OUTSIDE RECORDS SUMMARY | 2023-10-05 12:47 | XMS_ITS | Clinical Summary ---
Author Name Unknown Organization [facility] Address [place], [place] [address] Care Team Providers Care Transcript Evaluator Name Role Phone Callie Smalls MD Primary Care Provider [phone] Allergies Active Allergy Reactions Criticality Noted Date Comments Gabapentin Rash 07/21/2019 Medications Medication Sig Dispensed Refills Start Date End Date Status labetalol (TRANDATE) 100 mg tablet Take 100 mg by mouth 2 times daily. 1 1/2 tabs bid (150mg) 0 08/10/2017 Active levothyroxine (SYNTHROID) 112 mcg tablet Take 112 mcg by mouth before breakfast. 2 tabs 0 08/13/2017 Active lisinopril-hydrochl orothiazide, 20-25 mg, (PRINZIDE, ZESTORETIC) 20-25 mg per tablet Take 20 tablets by mouth 2 times daily. 0 08/10/2017 Active metFORMIN (GLUCOPHAGE) 1,000 mg tablet Take 1,000 mg by mouth 2 times daily with meals. 0 07/06/2017 Active simvastatin (ZOCOR) 20 mg tablet Take 20 mg by mouth at bedtime. 0 07/06/2017 Active BD INSULIN PEN NEEDLE UF 31 gauge x 16 1.2 mg by Injection route every morning. 0 07/06/2017 Active trimethoprim-sulfam ethoxazole, 160-800 mg, (BACTRIM DS, SEPTRA DS) tablet Take 160 tablets by mouth once daily. 0 09/26/2017 Active aspirin 325 mg tablet Take 1 tablet by mouth once daily with a meal. 0 09/30/2017 Active ixekizumab (TALTZ AUTOINJECTOR, 2 PACK,) 80 mg/mL atIn Inject subcutaneous every 4 weeks. 0 09/30/2017 Active colchicine (COLCRYS, COLCHICINE,) 0.6 mg tablet Take 1 tablet by mouth once daily. 0 09/30/2017 Active probenecid-colchici ne (COL-BENEMID) 500-0.5 mg per tablet TAKE 1 TABLET BY MOUTH TWICE DAILY NEEDED FOR GOUT FLARE 0 10/25/2021 Active Social History Tobacco Use Types Packs/Day Years Used Date Smoking Tobacco: Former Smokeless Tobacco: Current Snuff Tobacco Cessation:Counseling Given: Yes Comments:Quit in Sex and Gender Information Value Date Recorded Sex Assigned at Not on file Gender Identity Not on file Sexual Orientation Not on file Obstetrics History Last Filed Vital Signs Vital Sign Reading Time Taken Comments Blood Pressure 116/69 11/21/2021 1:44 PM CDT Pulse 74 11/21/2021 1:44 PM CDT Temperature - - Respiratory Rate - - Oxygen Saturation 98% 11/21/2021 1:44 PM CDT Inhaled Oxygen Concentration - - Weight 116.8 kg (257 lb 9.6 oz) 05/14/2018 9:28 AM CDT Height - - Body Mass Index - - Plan of Treatment Health Maintenance Due Date Last Done Comments Tdap 12/26/1959 Depression screening for age 12+ 1960 BMI (ht and wt on same day) for age 18+ 1966 Hepatitis C screening for age 18-79 1966 Tetanus booster 1968 Colonoscopy through age 75 1993 Lipids for age 45-75 1993 Zoster (shingles) series for age 50+ (1 of 2) 1998 Medicare Wellness for age 65+ 2013 Pneumococcal series for age 65+ (1 of 1 - PCV) 2013 COVID-19 vaccine series (2022-24 season) 2023 06/30/2021, 11/29/2020, 11/08/2020 Influenza for age 65+ 05/10/2023 Care Teams Transcript Evaluator Relationship Specialty Start Date End Date Callie Smalls MD [address] [place] [address] PCP - General Internal Medicine 09/30/17
--- OUTSIDE RECORDS SUMMARY | 2023-10-05 12:47 | XMS_ITS | Encounter Summary ---
Author Name Unknown Organization [facility] Address [address] [place] [phone] Phone Care Team Providers Care Certified Nurse Operating Room Name Role Phone Unavailable Primary Care Provider Unavailabl e Encounter Details Date Type Department Care Team Description 04/24/2023 Travel Social History Tobacco Use Types Packs/Day Years [...]
--- OUTSIDE RECORDS SUMMARY | 2023-10-05 12:47 | XMS_ITS | Encounter Summary ---
Author Name Unknown Organization [facility] Address [address] [place] [address] Phone Care Team Providers Care Mailing Jogger Name Role Phone Unavailable Primary Care Provider Unavailabl e Encounter Details Date Type Department Care Team Description 04/24/2023 Orders Only [facility] Film Room [facility] Radiology Department KEITH [address] [id number] Provider, [place] [address] Referral of patient (Primary Dx) Social History Tobacco Use Types Packs/Day Years [...] on file documented as of this encounter Results * ULT ABDOMEN/PELVIS OUTSIDE FILMS (04/23/2023 7:24 PM CDT) Narrative Nolvia BerumenEtzd-Kosmna-Savyszhwu - 04/24/2023 12:32 AM CDT Outside Film Only Outside Provider RAD OUTSIDE FILMS * XR CHEST OUTSIDE FILMS (04/23/2023 7:07 PM CDT) Narrative Nolvia BerumenNinf-Rhwydm-Keiholfly - 04/24/2023 12:31 AM CDT Outside Film Only Outside Provider RAD OUTSIDE FILMS * ULT ABDOMEN/PELVIS OUTSIDE FILMS (04/22/2023 2:22 PM CDT) Nolvia DasSilent-Scheduler - 04/24/2023 12:33 AM CDT Outside Film Only Outside Provider RAD OUTSIDE FILMS * CT ABDOMEN/PELVIS OUTSIDE FILMS (04/22/2023 12:53 PM CDT) Nolvia DasSilent-Scheduler - 04/24/2023 12:33 AM CDT Outside Film Only Outside Provider RAD OUTSIDE FILMS documented in this encounter Visit Diagnoses Diagnosis Referral of patient- Primary Referral of patient without examination or treatment documented in this encounter
--- OUTSIDE RECORDS SUMMARY | 2023-10-05 12:48 | XMS_ITS | Clinical Summary ---
Author Name Unknown Organization [facility] Address [address] [place] [address] Care Team Providers Care President & [employer] Name Role Phone Elsewhere, Pcp Primary Care Provider Unavailabl e Source Comments Patient records contain information from all sites at [facility]. For routine questions regarding patient records, call [phone] during business hours, M-F 8:00 AM - 5:00 PM Central Time. Record requests for emergency care only can be directed to [phone] at any time.[facility] Allergies Active Allergy Reactions Criticality Noted Date Comments Gabapentin Rash Low 07/21/2019 Other reaction(s): Diffuse drug eruption Medications Medication Sig Dispensed Refills Start Date End Date Status pen needle, diabetic (UltiCare Pen Needle) 31 gauge x 5/16 needleIndications: Diabetes Mellitus Type 2 With Diabetic Neuropathy (HCC) 1 Injection by abdominal subcutaneous route daily. 100 each 3 07/18/20 22 Suspended Additional Information amitriptyline (ELAVIL) 25 mg tablet Administer 0.5 tablets (12.5 mg total) via small bowel tube at bedtime as needed (neuropathy). 15 tablet 0 05/07/20 23 Suspended Additional Information Patient taking differently:12.5 mgoralBedtime PRN, neuropathy, Reported on 08/06/2023 ondansetron ODT (ZOFRAN-ODT) 8 mg disintegrating tablet Dissolve 1 tablet (8 mg total) in the mouth every 8 (eight) hours as needed for nausea or vomiting. 20 tablet 0 05/07/20 23 Suspended Additional Information allopurinoL (ZYLOPRIM) 300 mg tablet Take 1 tablet (300 mg total) by mouth daily. 30 tablet 0 05/24/20 Suspended Additional Information DME CPAP DME Order 0 Suspended aspirin 81 mg chewable tablet Chew 1 tablet (81 mg total) daily. 36 tablet 0 08/07/20 Suspended Additional Information liraglutide, weight loss, (SAXENDA) 3 mg/0.5 mL (18 mg/3 mL) injection Inject 1.2 mg under the skin daily. HOLDNot taking during chemo 0 08/07/20 23 024 Discontinued metFORMIN (GLUCOPHAGE) 1,000 mg tabletIndications: Diabetes Mellitus Type 2 (HCC) Take 1 tablet (1,000 mg total) by mouth daily with dinner. 30 tablet 0 08/07/20 Suspended Additional Information vit27,calcium/iron /FA (multivitamin/mine ral-) tablet Take 1 tablet by mouth daily. 30 tablet 0 08/07/20 23 023 acetaminophen (TYLENOL) 500 mg tablet Take 1 tablet (500 mg total) by mouth every 6 (six) hours as needed for mild pain or score 1-3 of 10 or moderate pain or score 4-6 of 10. 100 tablet 0 08/07/20 Suspended Additional Information levothyroxine (SYNTHROID, LEVOTHROID) 112 mcg tablet TAKE 2 TABLETS (224 MCG) BY MOUTH EVERY MORNING BEFORE BREAKFAST EXCEPT ON SUNDAYS, TUESDAYS, AND THURSDAYS TAKE ONLY 1 TABLET (112 MCG) EVERY MORNING 30 tablet 0 08/07/20 024 Discontinued(Re order) simvastatin (ZOCOR) 20 mg tablet Take 1 tablet (20 mg total) by mouth at bedtime. 30 tablet 0 08/07/20 Suspended Additional Information ixekizumab (TALTZ) 80 mg/mL syringe injection Inject 1 mL (80 mg total) under the skin every 28 (twenty-eight) days. One injection per month Does not use during chemotherapy 0 08/07/20 024 Discontinued predniSONE (DELTASONE) 50 mg tabletIndications: Lymphoma Non Hodgkins (HCC) Take 2 tablets (100 mg total) by mouth daily. Days 1 through 5 of each cycle. (Prior to chemotherapy if a chemo day) 10 tablet 4 08/12/20 23 024 Discontinued(Th erapy completed) magnesium oxide (MagOx) 400 mg (241.3 mg magnesium) tablet Take 1 tablet (400 mg total) by mouth every morning before breakfast. 30 tablet 1 08/12/20 23 024 Discontinued empagliflozin (Jardiance) 10 mg tablet Take 1 tablet (10 mg total) by mouth every morning before breakfast. 90 tablet 3 08/29/20 23 024 Discontinued cephalexin (KEFLEX) 500 mg capsule Take 1 capsule (500 mg total) by mouth every 12 (twelve) hours for 10 days. 20 capsule 0 09/04/20 23 024 Discontinued( erapy completed) levothyroxine (SYNTHROID, LEVOTHROID) 112 mcg tablet Take 2 tablets (224 mcg total) by mouth every morning before breakfast. 150 tablet 3 09/11/19 24 024 Discontinued(St op Taking at Discharge) acyclovir (ZOVIRAX) 400 mg tabletIndications: Prophylaxis, medical Take 1 tablet (400 mg total) by mouth 2 (two) times a day Indications: Prophylaxis, medical. 60 tablet 0 10/02/19 24 024 Suspended Additional Information dicyclomine (BENTYL) 10 mg capsule Take 1 capsule (10 mg total) by mouth 4 (four) times a day as needed (abdominal pain) for up to 20 doses. 20 capsule 0 10/02/19 24 Suspended Additional Information empagliflozin (Jardiance) 10 mg tablet Take 1 tablet (10 mg total) by mouth every morning before breakfast. Don't restart given tube feeds for primary diet, follow up with primary care 0 10/02/19 24 025 Suspended Additional Information ixekizumab (TALTZ) 80 mg/mL syringe injection Inject 1 mL (80 mg total) under the skin every 28 (twenty-eight) days. One injection per month Does not use during chemotherapy, held for now until seeing hematology 0 10/02/19 24 Suspended Additional Information levothyroxine (SYNTHROID, LEVOTHROID) 112 mcg tablet Take 2 tablets (224 mcg total) by mouth every morning before breakfast. 60 tablet 0 10/02/19 24 024 Discontinued liraglutide, weight loss, (SAXENDA) 3 mg/0.5 mL (18 mg/3 mL) injection Inject 1.2 mg under the skin daily. HOLD Not taking during chemo. Follow up with heme and primary care provider 0 10/02/19 24 024 Suspended Additional Information tamsulosin (FLOMAX) 0.4 mg 24 hr capsule Take 1 capsule (0.4 mg total) by mouth daily. Continue per primary 30 capsule 0 10/02/19 24 024 Suspended Additional Information levothyroxine (SYNTHROID, LEVOTHROID) 112 mcg tablet Take 2 tablets (224 mcg total) by mouth 4 (four) times a week AND 1 tablet (112 mcg total) 3 (three) times a week. Take 1 tablet, 112 mcg Saturday/Saturday/ Take 2 tablets, 224 mcg, Saturday/Saturday/ Saturday/Saturday. 44 tablet 0 10/02/19 24 024 Suspended Additional Information magnesium oxide (MAG-OX) 400 mg (241.3 mg magnesium) tablet TAKE 1 TABLET(400 MG) BY MOUTH EVERY MORNING BEFORE BREAKFAST 30 tablet 1 10/03/19 Suspended Additional Information Hospital, Clinic, or Other Facility Administered Medication Ordered Dose Route Frequency Start Date End Date Status sodium chloride 0.9 % injection 10 mL 10 mL IV As needed 08/19/2023 Active sodium chloride 0.9 % injection 20 mL 20 mL IV As needed 08/19/2023 Active sodium chloride 0.9 % injection 10 mL 10 mL IV Every 12 hours 08/19/2023 Activ e sodium chloride 0.9 % injection 10 mL 10 mL IV Every 28 days 08/19/2023 Active heparin flush 500 UnitsIndications:Lymphom a Non Hodgkins (HCC) 500 Units cath Every 28 days 08/19/2023 A ctive Active Problems Problem Noted Date Diagnosed Date Acute Respiratory Failure With Hypoxia Anemia Posthemorrhagic Acute (Blood Loss Anemia) 10/05/2023 Pneumatosis Cystoides Intestinalis 10/04/2023 Resection Small Bowel Status Post 10/04/2023 Severe Sepsis With Septic Shock 10/04/2023 Acidosis Metabolic 10/04/2023 Acidosis Lactic 10/04/2023 Hypomagnesemia 10/04/2023 Obstruction Intestinal 09/14/2023 Hypokalemia 08/05/2023 Anemia 08/05/2023 Thrombocytopenia 08/05/2023 Other Advisor Consultant Current Drug Therapy 05/22/2023 Lymphoma Non Hodgkins 05/17/2023 Vomiting 05/12/2023 Mass Duodenum 05/07/2023 Overview: 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, 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 Nausea And Vomiting 04/29/2023 Foot Drop Right 10/22/2019 Spinal Stenosis Lumbar Regio n Without Neurogenic Claudication 10/22/2019 History Of Falling 10/22/2019 Nicotine Dependence Chewing Tobacco 10/22/2019 Overview: Chews 1 can/week Radiculopathy Lumbar Fifth Right 10/12/2019 Overview: Added automatically from request for surgery [id number] Obesity Body Mass Index 30-39.9 Adult 01/29/2019 Malignant Neoplasm Of Thyroid Follicular 015 Hypothyroidism Postsurgical 08/24/2015 Diabetes Mellitus Type 2 With Diabetic Neuropath y 09/27/2014 Hypertension Essential Primary 02/10/2014 Apnea Sleep Obstructive 09/09/1994 Overview: uses CPAP Hyperlipidemia Chronic Kidney Disease Stage 2 Glomerular Filtration Rate 60 To 89 Resolved Problems Problem Noted Date Diagnosed Date Resolved Date Diabetes Mellitus Type 2 02/10/2014 Malignant neoplasm of thyroid gland 09/10/2008 10/25/2020 Overview: Overview: Followed by Dr. Gil in [facility] Suppressing thyroid with Synthroid currently 400 mcg Neuropathy Peripheral 2019 Hypothyroidism 10/22/2019 Encounters Date Type Department Care Team Description 10/05/2023 12:33 AM RECORDS ANALYST Anesthesia Event [facility] [address] [place] [phone] Carolee Ferguson M.D. Walsh, Emily E, M.D. 10/04/2023 11:45 PM RECORDS ANALYST - 10/05/2023 2:57 AM RECORDS ANALYST Surgery [facility] [address] [place] [phone] Omar Hennessy M.D. EXPLORATION ABDOMINAL - TEMPORARY CLOSURE ABDOMINAL, SMALL BOWEL RESECTION 10/04/2023 12:48 PM RECORDS ANALYST Anesthesia Event [facility] [address] [place] [phone] Ronald De Paz M.D. Kwansa, Marian Y, APRN, CRNA 10/04/2023 11:23 AM RECORDS ANALYST - 10/04/2023 2:52 PM RECORDS ANALYST Surgery [facility] [address] [place] [phone] Rudy Lazar M.D. EXPLORATORY LAPAROTOMY. SMALL BOWEL RESECTION. RETURN TRIPS TO OR. TEMPORARY CLOSURE. WOUND VAC PLACEMENT. 10/04/2023 8:06 AM RECORDS ANALYST - Present Hospital Encounter [facility], [facility], [facility], Seventh Floor [address] [place] [phone] Jayna Albert M.D. Jeaneth Gonzalez M.D. Cameron Saenz M.D. Volvulus Cecal (HCC) (Primary Dx); Peritonitis Acute Generalized (HCC); Ischemia Mesenteric (HCC) 10/03/2023 3:30 PM RECORDS ANALYST Office Visit Division of Hematology in [place], [place] [address] [place] [phone] Arti Epstein M.B.B.S. Lymphoma Non Hodgkins (HCC) (Primary Dx); Obstruction Intestinal (HCC); Gastrojejunostomy Percutaneous Status Post ; Intermediate Current Drug Therapy, Chemotherapy 10/03/2023 2:00 PM RECORDS ANALYST Clinical Support Department of Nutrition and Diabetes Education in [place], [place] [address] [place] [phone] Faustino Nuñez M.B.B.S. Maricruz Meehan RDN, LD Lymphoma Non Hodgkins (HCC); Mass Duodenum 10/03/2023 11:00 AM RECORDS ANALYST Comprehensive Visit Division of Endocrinology in [place], [place] [address] [place] [phone] Faustino Nuñez M.B.B.SWest Marino APRN, C.N.Heriberto, M.S. Mass Duodenum (Primary Dx); Lymphoma Non Hodgkins (HCC); Malnutrition Severe Protein-Calorie (HCC); Gastrojejunostomy Percutaneous Status Post ; Dietary Counseling And Surveillance For Enteral Nutrition 10/03/2023 10:30 AM RECORDS ANALYST Clinical Support Division of Endocrinology in [place], [place] [address] [place] [address] Tee Reynolds M.D. Giesen, Samantha M, R.N. Dietary Counseling And Surveillance For Enteral Nutrition 10/03/2023 9:30 AM RECORDS ANALYST Nurse Only Division of Endocrinology in [place], [place] [address] [place] [phone] Faustino Nuñez M.B.B.S. HPN Management 10/03/2023 Clinical Communication Division of Hematology in [place], [place] [address] [place] [phone] Hola Claudio M.D. est/hem/lymphoma/ 10/1110/03/2023 Orders Only Division of Endocrinology in [place], [place] [address] [place] [phone] Anupama Schwartz, RJohannaNJohanna Dietary Counseling And Surveillance For Enteral Nutrition (Primary Dx) 10/02/2023 Refill Division of Hematology in [place], [place] [address] [place] [phone] Bety Castro M.D. Med Refill 10/01/2023 10:30 AM RECORDS ANALYST Ancillary Procedure Department of Nursing 10/01/2023 10:25 AM RECORDS ANALYST Ancillary Procedure Department of Nursing 09/27/2023 11:44 AM RECORDS ANALYST Anesthesia Event Division of Gastroenterology in [place], [place] [address] [place] [phone] Michelle Waite APRN, SAL, Zaid Nair M.D. 09/27/2023 11:25 AM RECORDS ANALYST Ancillary Procedure Department of Gastroenterology 09/24/2023 8:55 AM RECORDS ANALYST Ancillary Procedure Department of Nursing 09/24/2023 8:50 AM RECORDS ANALYST Ancillary Procedure Department of Nursing 09/20/2023 Clinical Communication [facility] [address] [place] [phone] Ling Carrillo M.D. Post Hospital Follow-up 09/20/2023 Clinical Communication [facility] [address] [place] [phone] Ling Carrillo M.D. Post Hospital Follow-up 09/17/2023 2:59 PM RECORDS ANALYST Anesthesia Event Division of Gastroenterology in [place], [place] [address] [place] [phone] Petty Garcia APRN, CRNA, Stephen Katz M.D. 09/17/2023 2:40 PM RECORDS ANALYST Ancillary Procedure Department of Gastroenterology 09/17/2023 Documentation Division of Endocrinology in [place], [place] [address] [place] [phone] Micaela Reich R.N. Scheduling 09/17/2023 Orders Only Department of Radiology, [facility], in [place], [place] [address] [place] [phone] Kye Lunsford 09/15/2023 8:55 AM RECORDS ANALYST Ancillary Procedure Department of Transplantation Surgery 09/14/2023 7:08 PM RECORDS ANALYST - 10/02/2023 5:10 PM RECORDS ANALYST Hospital Encounter [facility], [facility], Tenth Floor [address] [place] [address] Aris Mina P.A.-C. Bellamkonda, Venkatesh R, M.D. Cook, Joselle M M.B.B.SFaustino Meyers M.B.BTaina Saenz M.B.BXavi Whitaker M.D. Obstruction Intestinal (HCC) (Primary Dx); Neutropenia (HCC); Leukopenia; Lymphoma Non Hodgkins (HCC); Mass Duodenum; Effusion Knee Right; Decline Functional Status [R53.81]; Gastrojejunostomy Percutaneous Status Post ; History Of Falling; Foot Drop Right; Radiculopathy Lumbar Fifth Right Discharge Disposition: Home or Self Care 09/13/2023 12:45 PM RECORDS ANALYST Clinical Communication Virtual Review in [place], [place] [address] [place] [address] Pre-visit Intake 09/11/2023 Orders Only Department of Endocrinology in [address] [phone] Rosemarie Dutton APRN, C.N.P., M.S. 09/11/2023 Refill Division of Endocrinology in [place], [place] [address] [place] [phone] Rosemarie Dutton APRN, C.N.Ash., M.S. Med Refill (Levothyroxine) 09/10/2023 7:10 AM RECORDS ANALYST Lab Department of Laboratory Medicine and Pathology, [facility], in [place], [place] [address] [place] [address] Bety Castro M.D. Lymphoma Non Hodgkins (HCC) 09/04/2023 5:30 PM RECORDS ANALYST Infusion Department of Infusion Therapy in [place], [place] [address] [place] [phone] Bev Gifford APRN, C.N.P., M.S.N. Lymphoma Non Hodgkins (HCC) (Primary Dx); Anemia 09/04/2023 2:50 PM RECORDS ANALYST Lab Department of Infusion Therapy in [place], [place] [address] [place] [phone] Bev Gifford APRN, C.N.P., M.S.N. Lymphoma Non Hodgkins (HCC) (Primary Dx); Anemia 09/04/2023 1:00 PM RECORDS ANALYST Office Visit Division of Hematology in [place], [place] [address] [place] [phone] Bev Gifford APRN C.N.P., M.S.N. Lymphoma Non Hodgkins (HCC) 09/04/2023 10:40 AM RECORDS ANALYST Lab Department of Infusion Therapy in [place], [place] [address] [place] [phone] Garcia Flores M.D., Ph.D. Lymphoma Non Hodgkins (HCC) (Primary Dx) 09/04/2023 Clinical Communication Division of Hematology in [place], [place] [address] [place] [phone] Hola Claudio M.D. EST HEM LYMPH CHEMO 09/16/23 09/04/2023 Orders Only Division of Hematology in [place], [place] [address] [place] [phone] Bev Gifford APRN, C.N.P., M.S.N. Lymphoma Non Hodgkins (HCC) (Primary Dx); Anemia 09/04/2023 Clinical Communication Division of Hematology in [place], [place] [address] [place] [phone] Bev Gifford APRN, C.Pawan., M.S.N. 08/29/2023 Refill Division of Endocrinology in [place], [place] [address] [place] [phone] Rosemarie Dutton APRN C.N.P., M.S. Med Refill 08/28/2023 Refill Division of [facility] Internal Medicine, [facility] in [place], [place] [address] [place] [phone] Roseann Sheldon M.B., B.Ch., B.A.O. Med Refill 08/27/2023 11:00 AM RECORDS ANALYST Clinical Communication Virtual Review in [place], [place] [address] [place] [address] Pre-visit Intake 08/27/2023 Clinical Communication Division of Hematology in [place], [place] [address] [place] [phone] Hola Claudio M.D. Swollen toe concerns 08/19/2023 8:50 AM RECORDS ANALYST Lab Department of Laboratory Medicine and Pathology, [facility], in [place], [place] [address] [place] [phone] Bety Castro M.D. Lymphoma Non Hodgkins (HCC) 08/19/2023 Clinical Communication Division of Hematology in [place], [place] [address] [place] [phone] Hola Claudio M.D. 08/13/2023 2:20 PM RECORDS ANALYST Anesthesia Event Division of Gastroenterology in [place], [place] [address] [place] [phone] Ashia Barakat APRN, CRNA Warner, Mary E, M.D. 08/13/2023 2:10 PM RECORDS ANALYST Ancillary Procedure Department of Gastroenterology 08/13/2023 11:34 AM RECORDS ANALYST - 08/13/2023 11:59 PM RECORDS ANALYST Hospital Encounter Division of Gastroenterology in [place], [place] [address] [place] [phone] Roseann Sheldon M.B., B.Ch., B.A.O. Beata Fajardo M.D. Mueller, Denise A, APRN, CRNA Lymphoma Non Hodgkins (HCC) Discharge Disposition: Home or Self Care 08/13/2023 7:30 AM RECORDS ANALYST Infusion Department of Infusion Therapy in [place], [place] [address] [place] [phone] Bety Castro M.D. Lymphoma Non Hodgkins (HCC) (Primary Dx) Discharge Disposition: Home or Self Care 08/12/2023 12:30 PM RECORDS ANALYST Infusion Department of Oncology in [place], [place] [address] [place] [phone] Bety Castro M.D. Lymphoma Non Hodgkins (HCC) (Primary Dx) 08/12/2023 9:30 AM RECORDS ANALYST Office Visit Division of Hematology in [place], [place] [address] [place] [phone] Bety Castro M.D. Witzig, Thomas E, M.D. Lymphoma Non Hodgkins (HCC) (Primary Dx) 08/12/2023 7:40 AM RECORDS ANALYST Lab Department of Oncology in [place], [place] [address] [place] [phone] Bety Castro M.D. Lymphoma Non Hodgkins (HCC) (Primary Dx); Hypokalemia 08/12/2023 Orders Only Division of Hematology in [place], [place] [address] [place] [address] Bety Castro M.D. Lymphoma Non Hodgkins (HCC) (Primary Dx) 08/09/2023 9:43 AM RECORDS ANALYST - 08/09/2023 11:59 PM RECORDS ANALYST Hospital Encounter Department of Radiology, [facility], in [place], [place] [address] [place] [phone] Bety Castro M.D. Lymphoma Non Hodgkins (HCC) Discharge Disposition: Home or Self Care 08/08/2023 11:59 PM RECORDS ANALYST Hospital Encounter Division of Gastroenterology in [place], [place] [address] [place] [phone] Roseann Sheldon M.B., B.Ch., B.A.O. Canceled (Clinic: Request) Discharge Disposition: Home or Self Care 08/08/2023 Clinical Communication Division of Hematology in [address] [phone] Bety Castro M.D. Med Question; Treatment Questions 08/07/2023 Clinical Communication [facility] [address] [place] [phone] Roseann Sheldon M.B., B.Ch., B.A.O. Post Hospital Follow-up 08/05/2023 5:55 PM RECORDS ANALYST Ancillary Procedure Department of Nursing 08/05/2023 5:50 PM RECORDS ANALYST Ancillary Procedure Department of Nursing 08/05/2023 5:45 PM RECORDS ANALYST Ancillary Procedure Department of Nursing 08/05/2023 5:40 PM RECORDS ANALYST Ancillary Procedure Department of Nursing 08/05/2023 12:12 PM RECORDS ANALYST - 08/07/2023 3:50 PM RECORDS ANALYST Hospital Encounter [facility], [facility], Third Floor [address] [place] [phone] Megan Frazier, Ibeth.-Lola., M.S. Bharat Reyna PRicardo Mejia M.D. Hypokalemia (Primary Dx); Thrombocytopenia (HCC); Anemia; History Of Falling; Lymphoma Non Hodgkins (HCC); Diabetes Mellitus Type 2 (HCC) Discharge Disposition: Home or Self Care 08/05/2023 Intake [facility] 08/05/2023 Clinical Communication Division of Hematology in [place], [place] [address] [place] [phone] Garcia Flores M.D., Ph.D. 08/02/2023 Clinical Communication Division of Hematology in [place], [place] [address] [place] [phone] Garcia Flores M.D., Ph.D. Order Request 07/29/2023 Clinical Communication Division of Hematology in [place], [place] [address] [place] [phone] Garcia Flores M.D., Ph.D. EST Lymphoma 07/29/2023 Clinical Communication Division of Hematology in [place], [place] [address] [place] [phone] Bety Castro M.D. External Lab Entry 07/24/2023 2:45 PM RECORDS ANALYST Infusion Department of Infusion Therapy in [address] [phone] Bety Castro M.D. Lymphoma Non Hodgkins (HCC) (Primary Dx) 07/23/2023 10:00 AM RECORDS ANALYST Infusion Department of Oncology in [place], [place] [address] [place] [phone] Bety Castro M.D. Lymphoma Non Hodgkins (HCC) (Primary Dx) 07/22/2023 3:30 PM RECORDS ANALYST Office Visit Division of Hematology in [place], [place] [address] [place] [phone] Bety Castro M.D. Lymphoma Non Hodgkins (HCC) (Primary Dx) 07/22/2023 7:57 AM RECORDS ANALYST - 07/22/2023 11:15 AM RECORDS ANALYST Hospital Encounter Department of Radiology in [place], [place] [address] [place] [address] Bety Castro M.D. Linch, Forrest B, M.D. Johnson, Paige C, M.D. Lymphoma Non Hodgkins (HCC); Other Intermediate Current Drug Therapy Discharge Disposition: Home or Self Care 07/22/2023 Clinical Communication Division of Hematology in [place], [place] [address] [place] [phone] Garcia Flores M.D., Ph.D. 07/19/2023 9:45 AM [facility] Clinical Communication Virtual Review in [place], [place] [address] [place] [address] Pre-visit Intake 07/18/2023 Clinical Communication Division of Hematology in [place], [place] [address] [place] [phone] Bety Castro M.D. Patient update from Last 3 Months Immunizations Name Administration Dates Next Due H1N1 All Forms 08/11/2009 Influenza (IM) Preservative Free 013,06/08/2011,06/19/2010,2008,06/11/2007 Influenza Split 07/15/2017,07/06/2015,06/09/2013 Influenza TIV (IM) 08/11/2009, 8,06/11/2007,2005 Influenza high dose QV(65 ye ars or older) (PF) 07/30/2022,06/12/2021 Influenza, Seasonal, Injectable 06/21/2008,07/16 PCV13 10/11/2014 PPSV23 09/11/2011,07/16/2006 Pneumococcal, Unspecified 09/11/2011 Td (Adult), adsorbed 05/16/1999 Td Preservative Free (TENIVA C, DECAVAC) 05/16/1999 Tdap 12/26/2022,02/18/2012,09/10/2008 influenza high dose (65 year s or older) (PF) 07/27/2019,07/02/2018,07/15/2017,2015,05/26/2014,06/09/2013 influenza vaccine quad (FLUZONE/FLUARIX) (6 months and older)(PF) 07/06/2015 Family History Medical History Relation Name Comments Diabetes Father Dewey BobWolfe Hypertension Father Dewey DeWolfe Stroke Father Dewey Lau Diabetes Mother Janet Lau Psoriasis Mother Janet Lau Thyroid disease Mother Janet Lau Thyroid disease Sister 1 Jael Tucker Thyroid disease Sister 2 Rhonda Can Thyroid disease Sister 3 Henna Figueroa Breast cancer Sister 4 Henna Figueroa Alcohol abuse Son Berent Thyroid cancer Neg Hx Relation Name Status Comments Father Dewey Lau Mother Janet Lau Sister 1 Jael Hoangel Sister 2 Rhonda Lau Can Sister 3 Henna Lau Figueroa Sister 4 Henna Figueroa Son Berent Social History Tobacco Use Types Packs/Day Years Used Date Smoking Tobacco: Former Cigarettes 1 22 Q uit: 02/07/1989 Passive Smoke Exposure: Never Smokeless Tobacco: Former Snuff, Chew Quit: 04/18/2023 Tobacco Cessation:Counseling Given: Not Answered Alcohol Use Standard Drinks/Week Comments Not Currently 3 (1 standard drink = 0.6 oz pur e alcohol) [facility] Utilities Answer Date Recorded In the past 12 months has [employer] gas, oil, or water mInfo threatened to shut off services in your home? No 09/15/2023 Humiliation, Afraid, Rape, and Kick questionnair e Answer Date Recorded Within the last year, have y ou been afraid of your partner or ex-partner? No 09/15/2023 Within the last year, have y ou been humiliated or emotionally abused in other ways by your partner or ex-partner? No Within the last year, have y ou been kicked, hit, slapped, or otherwise physically hurt by your partner or ex-partner? No 09/15/2023 Within the last year, have y ou been raped or forced to have any kind of sexual activity by your partner or ex-partner? No 09/15/2023 Social Connection and Isolation Panel [NHANES] A nswer Date Recorded In a typical week, how many times do you talk on the phone with family, friends, or neighbors? Three times a week 01/11/20 How often do you get togethe r with friends or relatives? Three times a week 01/10/2023 How often do you attend [facility] or muslim services? Never 01/10/2023 Do you belong to any clubs o r organizations such as anabaptist groups, unions, fraternal or athletic groups, or school groups? No 01/10/2023 How often do you attend meet ings of the clubs or organizations you belong to? Never 01/10/2023 Are you , , di vorced, , never , or living with a partner? Living with partner 01/10/2023 AUDIT-C Answer Date Recorded Q1: How often do you have a drink containing alc ohol? 2-4 times a month 01/10/2023 Q2: How many drinks containi ng alcohol do you have on a typical day when you are drinking? 1 or 2 01/10/2023 Q3: How often do you have si x or more drinks on one occasion? Never 01/10/2023 Overall Financial Resource Strain (CARDIA) Answe r Date Recorded How hard is it for you to pa y for the very basics like food, housing, medical care, and heating? Not hard at all 01/10/2023 PHQ-2 Answer Date Recorded PHQ-2 Score 0 04/25/2020 [facility] - Occupational Stress Questionnaire Answer Date Recorded Do you feel stress - tense, restless, nervous, or anxious, or unable to sleep at night because your mind is troubled all the time - these days? Not at all 01/10/2023 Exercise Vital Sign Answer Date Recorde d On average, how many days pe r week do you engage in moderate to strenuous exercise (like a brisk walk)? 2 days 01/10/2023 On average, how many minutes do you engage in exercise at this level? 20 min 01/10/2023 Hunger Vital Sign Answer Date Recorded Within the past 12 months, y ou worried that your food would run out before you got the money to buy more. Never true 09/15/19 24 Within the past 12 months, t he food you bought just didn't last and you didn't have money to get more. Never true 09/15/2023 PRAPARE - Transportation Answer Date Re corded In the past 12 months, has l ack of transportation kept you from medical appointments or from getting medications? No 03/2024 In the past 12 months, has l ack of transportation kept you from meetings, work, or from getting things needed for daily living? No 09/15/2023 Nutrition Answer Date Recorded Nutrition: EVOO Fat Source No 01/10 On average, how many serving s of fruits and vegetables do you eat per day (serving size is equal to 1 cup or approximately the size of a tennis ball)? 0-1 01/10/2023 Dental Answer Date Recorded Dental: Regular Dentist Yes 01/23/20 Employment Answer Date Recorded Employment status Retired 01/10/2023 Housing Stability Answer Date Recorded What is your living situation today? I have a [facility] place to live 09/15/2023 Education Answer Date Recorded What is the highest level of school you have completed or the highest degree you have received? Associate degree: occupational, technical, or vocational program 07/17/2019 Sex and Gender Information Value Date Recorded Sex Assigned at Male 02/18/2018 8:44 AM CDT Gender Identity Male 02/18/2018 8:44 AM CDT Sexual Orientation Straight 02/25/2018 3: 30 PM CDT Last Filed Vital Signs Vital Sign Reading Time Taken Comments Blood Pressure 110/69 10/05/2023 12:00 PM RECORDS ANALYST Pulse 104 10/05/2023 12:30 PM RECORDS ANALYST Temperature 37.6 ??C (99.7 ??F) 10/05/2023 12:[address] Respiratory Rate 22 10/05/2023 12:30 PM RECORDS ANALYST Oxygen Saturation 98% 10/05/2023 12:30 PM RECORDS ANALYST Inhaled Oxygen Concentration - - Weight 84.4 kg (186 lb 1.1 oz) 10/05/2023 2:37 A M RECORDS ANALYST Height 172 cm (5' 7.72) 10/04/2023 6:00 PM RECORDS ANALYST Body Mass Index 28.53 10/04/2023 6:00 PM RECORDS ANALYST Plan of Treatment Upcoming Encounters Date Type Department Care Team (Latest Contact Info) Description 10/06/2023 9:04 AM RECORDS ANALYST - 10/06/2023 11:24 AM RECORDS ANALYST Surgery [facility] OR [address] [place] [phone] Cameron Saenz M.D. [address] [place] [address] ABDOMINAL EXPLORATION, REMOVAL ABTHERA, POSSBLE BOWEL RESECTION, PROCEED INDICATED 10/11/2023 7:00 AM RECORDS ANALYST Appointment Department of Laboratory Medicine and Pathology, [facility], in [place], [place] [address] [place] [phone] Arti Epstein M.B.B.S. [address] [place] [phone] 10/11/2023 9:00 AM RECORDS ANALYST Office Visit Division of Hematology in [place], [place] [address] [place] [phone] Arti Epstein M.B.B.S. [address] [place] [phone] 10/11/2023 10:00 AM RECORDS ANALYST Infusion Department of Oncology in [place], [place] [address] [place] [phone] Bev Gifford APRN, C.N.P., M.S.N. [address] [place] [phone] 11/19/2023 10:00 AM CDT Office Visit Division of Endocrinology in [address] [phone] West Mendoza APRN, C.N.P., M.S. [address] [place] [phone] 11/19/2023 2:30 PM CDT Comprehensive Visit Division of Hepatobiliary and Pancreas Surgery in [place], [place] [address] [place] [phone] Wesley Hamilton M.D. 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) 10/06/2023 9:04 AM RECORDS ANALYST Health Maintenance Due Date Last Done Comments CT Colonography 1948 Cologuard 1948 Dilated Eye Exam 1948 FIT 1948 Zoster Vaccines (1 of 2) 12/26/1967 Hepatitis B Vaccines (1 of 3 - Risk 3-dose series) 2008 Pneumococcal vaccine (65+ years) (4 of 4 - PPSV23 or PCV20) 09/11/2016 10/11/2014, 09/11/2011, 09/11/2011, Additional history exists Colonoscopy 07/11/2019 07/11/2009 (Perf ormed elsewhere), 01/07/2006 (Performed elsewhere), 02/12/2005 (Performed elsewhere), Additional history exists Colorectal Cancer Screening 07/11/2019 COVID-19 Vaccine ( season) 2023 08/09/2022, 06/30/2021, 11/29/2020, Additional history exists Influenza Vaccine (#1) 2023 , 06/12/2021, 07/27/2019, Additional history exists Diabetic Office Visit with Foot Exam 07/18/2023 07/18/2022, 07/18/2022, 07/13/2021, Additional history exists Hemoglobin A1C 07/18/2023 01/15/2023, 05/2022, 01/10/2022, Additional history exists Lipid (Cholesterol) Screening 07/18/2023 07/18/2022, 07/13/2021, 07/26/2020, Additional history exists Depression Screening (Annual PHQ-2) 09/09/2023 Urine Albumin 01/16/2024 01/15/2023, 110 05/2022, 07/13/2021, Additional history exists Office Visit for Blood Pressure Check / Re-check 10/03/2024 10/03/2023 Creatinine Level (Kidney Function Test) 10/05/2024 10/05/2023, 10/04/2023, 10/04/2023, Additional history exists DTaP,Tdap,and Td Vaccines (4 - Td or Tdap) 12/26/2032 12/26/2022, 02/18/2012, 09/10/2008, Additional history exists Fall Risk Screen (Annual) Completed 09/27/2023 Abdominal Aortic Aneurysm (AAA) Screen Completed 10/04/2023, 09/14/2023, 08/05/2023, Additional history exists HPV Vaccines Aged Out No longer eligi ble based on patient's age to complete this topic Medical Devices Implanted Type Area Court Collections Officer Device Identifier Shelf Expiration Date Model / Serial / Lot Hardware E.G. Pins/Screws/ Rods Hardware e.g. pins/screws/ro ds Left: Shoulder Description:Per pt two pins Prt Pwr Mri Mctrdcr 8f - [id number] Implanted:Qt y: 1 on 07/22/2023 by Noe Guevara M.D. at [facility] Implantable Port Chest [employer] 02/06/2025 [id number] / / [id number] Procedures The patient is currently admitted. The information in this section might not be complete until the patient is discharged. Procedure Name Priority Date/Time Associated Diagnosis Comments PATIENT STATUS Timed 10/05/2023 12:01 PM RECORDS ANALYST LACTATE, B Timed 10/05/2023 12:01 PM RECORDS ANALYST ABG W/COOX Timed 10/05/2023 12:01 PM RECORDS ANALYST GLUCOSE POCT, B Routine 10/05/2023 11:45 AM RECORDS ANALYST GLUCOSE POCT, B Routine 10/05/2023 7:21 AM RECORDS ANALYST HEPARIN LEVEL ANTI-XA ASSAY, P Timed 10/05/2023 7:21 AM RECORDS ANALYST GLUCOSE POCT, B Routine 10/05/2023 6:15 AM RECORDS ANALYST DX CHEST PORTABLE 1 VIEW RAD - Routine (most inpatients and all outpatients) 10/05/2023 6:07 AM RECORDS ANALYST GLUCOSE POCT, B Routine 10/05/2023 5:02 AM RECORDS ANALYST CALCIUM, IONIZED, S/B Timed 10/05/2023 4:28 AM RECORDS ANALYST PATIENT STATUS Timed 10/05/2023 4:28 AM RECORDS ANALYST ABG W/COOX Timed 10/05/2023 4:28 AM RECORDS ANALYST CBC WITHOUT DIFFERENTIAL, B Routine 10/05/2023 4:27 AM RECORDS ANALYST LACTATE, B/P Timed 10/05/2023 4:27 AM RECORDS ANALYST CYSTATIN C WITH EGFR Timed 10/05/2023 4:27 AM RECORDS ANALYST PHOSPHORUS (INORGANIC), S Timed 10/05/2023 4:27 AM RECORDS ANALYST MAGNESIUM, S Timed 10/05/2023 4:27 AM RECORDS ANALYST BASIC METABOLIC PANEL, S/P Timed 10/05/2023 4:27 AM RECORDS ANALYST TRANSFUSE RED BLOOD CELLS Routine 10/05/2023 4:22 AM RECORDS ANALYST GLUCOSE POCT, B Routine 10/05/2023 4:12 AM RECORDS ANALYST GLUCOSE POCT, B Routine 10/05/2023 3:15 AM RECORDS ANALYST TRANSFUSE RED BLOOD CELLS Routine 10/05/2023 3:09 AM RECORDS ANALYST GLUCOSE POCT, B Routine 10/05/2023 2:10 AM RECORDS ANALYST PATIENT STATUS STAT 10/05/2023 12:52 AM RECORDS ANALYST LACTATE, B STAT 10/05/2023 12:52 AM RECORDS ANALYST GLUCOSE, WHOLE BLOOD STAT 10/05/2023 12:52 AM RECORDS ANALYST POTASSIUM, B STAT 10/05/2023 12:52 AM RECORDS ANALYST SODIUM, B STAT 10/05/2023 12:52 AM RECORDS ANALYST CALCIUM, IONIZED, S/B STAT 10/05/2023 12:52 AM RECORDS ANALYST ABG W/COOX STAT 10/05/2023 12:52 AM RECORDS ANALYST GLUCOSE POCT, B Routine 10/05/2023 12:02 AM RECORDS ANALYST GLUCOSE POCT, B Routine 10/04/2023 11:19 PM RECORDS ANALYST ACTIVATED PARTIAL THROMBOPLASTIN TIME (APTT), P STAT 10/04/2023 10:08 PM RECORDS ANALYST GLUCOSE POCT, B Routine 10/04/2023 10:07 PM RECORDS ANALYST BASIC METABOLIC PANEL, S/P STAT 10/04/2023 10:03 PM RECORDS ANALYST CBC WITHOUT DIFFERENTIAL, B STAT 10/04/2023 10:03 PM RECORDS ANALYST THROMBOELASTOGRAPH, KAOLIN, B STAT 10/04/2023 9:59 PM RECORDS ANALYST GLUCOSE POCT, B Routine 10/04/2023 9:03 PM RECORDS ANALYST US UPPER EXTREMITY VEINS RIGHT RAD - Semiurgent (Fast; most ED patients; some inpatients) 10/04/2023 8:40 PM RECORDS ANALYST GLUCOSE POCT, B Routine 10/04/2023 8:15 PM RECORDS ANALYST PATIENT STATUS Timed 10/04/2023 7:54 PM RECORDS ANALYST ABG W/COOX Timed 10/04/2023 7:54 PM RECORDS ANALYST LACTATE, B/P Timed 10/04/2023 7:53 PM RECORDS ANALYST URINALYSIS, DIPSTICK Routine 10/04/2023 6:39 PM RECORDS ANALYST GLUCOSE POCT, B Routine 10/04/2023 6:32 PM RECORDS ANALYST TROPONIN T, 2H/6H, 5TH GEN, P Timed 10/04/2023 5:57 PM RECORDS ANALYST DX CHEST PORTABLE 1 VIEW RAD - Routine (most inpatients and all outpatients) 10/04/2023 5:42 PM RECORDS ANALYST GLUCOSE POCT, B Routine 10/04/2023 5:01 PM RECORDS ANALYST AIRWAY CARE Routine 10/04/2023 4:31 PM RECORDS ANALYST AIRWAY CARE Routine 10/04/2023 4:31 PM RECORDS ANALYST AIRWAY CARE Routine 10/04/2023 4:31 PM RECORDS ANALYST MC ANE CENTRAL LINE GENERIC PERFORMABLE Routine 10/04/2023 4:25 PM RECORDS ANALYST Peritonitis Acute Generalized (HCC) LDA ANE CENTRAL LINE TRIPLE LUMEN Routine 10/04/2023 4:25 PM RECORDS ANALYST Peritonitis Acute Generalized (HCC) LA INS NON-JEFRY CVC >5YR Routine 10/04/2023 4:25 PM RECORDS ANALYST Peritonitis Acute Generalized (HCC) ECG Semiurgent (Fast, most ED patients, some inpatients) 10/04/2023 4:17 PM RECORDS ANALYST PATIENT STATUS STAT 10/04/2023 3:49 PM RECORDS ANALYST TROPONIN T, BASELINE, 5TH GEN, P STAT 10/04/2023 3:49 PM RECORDS ANALYST PROTHROMBIN TIME (PT), P STAT 10/04/2023 3:49 PM RECORDS ANALYST PHOSPHORUS (INORGANIC), S STAT 10/04/2023 3:49 PM RECORDS ANALYST MAGNESIUM, S STAT 10/04/2023 3:49 PM RECORDS ANALYST LACTATE, B/P STAT 10/04/2023 3:49 PM RECORDS ANALYST HEPATIC FUNCTION PANEL, S STAT 10/04/2023 3:49 PM RECORDS ANALYST CBC WITHOUT DIFFERENTIAL, B STAT 10/04/2023 3:49 PM RECORDS ANALYST CALCIUM, IONIZED, S/B STAT 10/04/2023 3:49 PM RECORDS ANALYST BASIC METABOLIC PANEL, S/P STAT 10/04/2023 3:49 PM RECORDS ANALYST ABG W/COOX STAT 10/04/2023 3:49 PM RECORDS ANALYST DX CHEST PORTABLE 1 VIEW RAD - Emergent (Fastest; for the most critically ill patients) 10/04/2023 3:44 PM RECORDS ANALYST MECHANICAL VENTILATOR Routine 10/04/2023 3:41 PM RECORDS ANALYST MECHANICAL VENTILATOR Routine 10/04/2023 3:41 PM RECORDS ANALYST MECHANICAL VENTILATOR Routine 10/04/2023 3:41 PM RECORDS ANALYST MECHANICAL VENTILATOR Routine 10/04/2023 3:41 PM RECORDS ANALYST MECHANICAL VENTILATOR Routine 10/04/2023 3:41 PM RECORDS ANALYST MECHANICAL VENTILATOR Routine 10/04/2023 3:41 PM RECORDS ANALYST THROMBOELASTOGRAPH, KAOLIN, B STAT 10/04/2023 2:58 PM RECORDS ANALYST TRANSFUSE RED BLOOD CELLS Routine 10/04/2023 2:33 PM RECORDS ANALYST GLUCOSE, WHOLE BLOOD STAT 10/04/2023 2:00 PM RECORDS ANALYST POTASSIUM, B STAT 10/04/2023 2:00 PM RECORDS ANALYST SODIUM, B STAT 10/04/2023 2:00 PM RECORDS ANALYST CALCIUM, IONIZED, S/B STAT 10/04/2023 2:00 PM RECORDS ANALYST ABG W/COOX STAT 10/04/2023 2:00 PM RECORDS ANALYST LDA ANE ARTERIAL LINE INSERTION Routine 10/04/2023 1:45 PM RECORDS ANALYST LA ARTL CATH/CNULA MONITOR PERC Routine 10/04/2023 1:45 PM RECORDS ANALYST LDA ANE ENDOTRACHEAL AIRWAY Routine 10/04/2023 1:19 PM RECORDS ANALYST ADULT OXYGEN THERAPY Routine 10/04/2023 12:05 PM RECORDS ANALYST CRITICAL CARE Routine 10/04/2023 10:[address] ABDOMEN PELVIS WITH IV CONTRAST RAD - Semiurgent (Fast; most ED patients; some inpatients) 10/04/2023 9:56 AM RECORDS ANALYST BACTERIA / JOEL CULTURE, BLOOD STAT 10/04/2023 8:50 AM RECORDS ANALYST LACTATE FOR SEPSIS WITH REFLEX, POCT STAT 10/04/2023 8:41 AM RECORDS ANALYST MAGNESIUM, S STAT 10/04/2023 8:41 AM RECORDS ANALYST PROTHROMBIN TIME (PT), P STAT 10/04/2023 8:41 AM RECORDS ANALYST LIPASE, S/P STAT 10/04/2023 8:41 AM RECORDS ANALYST HEPATIC FUNCTION PANEL, S STAT 10/04/2023 8:41 AM RECORDS ANALYST BASIC METABOLIC PANEL, S/P STAT 10/04/2023 8:41 AM RECORDS ANALYST CBC WITH DIFFERENTIAL, B STAT 10/04/2023 8:41 AM RECORDS ANALYST BACTERIA / JOEL CULTURE, BLOOD STAT 10/04/2023 8:41 AM RECORDS ANALYST ECG STAT 10/04/2023 8:16 AM RECORDS ANALYST VITAMIN B12 ASSAY, S Routine 10/03/2023 12:33 PM RECORDS ANALYST Mass Duodenum Lymphoma Non Hodgkins (HCC) 25-HYDROXYVITAMIN D2 AND D3, S Routine 10/03/2023 12:33 PM RECORDS ANALYST Mass Duodenum Lymphoma Non Hodgkins (HCC) Malnutrition Severe Protein-Calorie (HCC) SOLUBLE TRANSFERRIN RECEPTOR (STFR), S Routine 10/03/2023 12:33 PM RECORDS ANALYST Mass Duodenum Lymphoma Non Hodgkins (HCC) COMPREHENSIVE METABOLIC PANEL, S/P Routine 10/03/2023 12:33 PM RECORDS ANALYST Neutropenia (HCC) Gout CBC WITH DIFFERENTIAL, B Routine 10/03/2023 12:33 PM RECORDS ANALYST Neutropenia (HCC) Gout GLUCOSE POCT, B Routine 10/02/2023 1:05 PM RECORDS ANALYST HEMOGLOBIN, B Timed 10/02/2023 8:36 AM RECORDS ANALYST GLUCOSE POCT, B Routine 10/02/2023 8:29 AM RECORDS ANALYST GLUCOSE POCT, B Routine 10/02/2023 6:27 AM RECORDS ANALYST PREPARE RED BLOOD CELLS Routine 10/02/2023 5:51 AM RECORDS ANALYST PREPARE RED BLOOD CELLS STAT 10/02/2023 5:51 AM RECORDS ANALYST TYPE AND SCREEN Routine 10/02/2023 5:51 AM RECORDS ANALYST MAGNESIUM, S Routine 10/02/2023 5:51 AM RECORDS ANALYST CBC NO CALL BACK, REFLEX T/S Routine 10/02/2023 5:51 AM RECORDS ANALYST BASIC METABOLIC PANEL, S/P Routine 10/02/2023 5:51 AM RECORDS ANALYST GLUCOSE POCT, B Routine 10/01/2023 8:48 PM RECORDS ANALYST GLUCOSE POCT, B Routine 10/01/2023 7:37 PM RECORDS ANALYST GLUCOSE POCT, B Routine 10/01/2023 4:16 PM RECORDS ANALYST GLUCOSE POCT, B Routine 10/01/2023 12:44 PM RECORDS ANALYST CBC WITH DIFFERENTIAL, B Timed 10/01/2023 11:57 AM RECORDS ANALYST NURSING IMAGE EXAM Routine 10/01/2023 10:26 AM RECORDS ANALYST NURSING IMAGE EXAM Routine 10/01/2023 10:25 AM RECORDS ANALYST GLUCOSE POCT, B Routine 10/01/2023 7:06 AM RECORDS ANALYST PHOSPHORUS (INORGANIC), S Routine 10/01/2023 5:22 AM RECORDS ANALYST MAGNESIUM, S Routine 10/01/2023 5:22 AM RECORDS ANALYST BASIC METABOLIC PANEL, S/P Routine 10/01/2023 5:22 AM RECORDS ANALYST GLUCOSE POCT, B Routine 09/30/2023 8:33 PM RECORDS ANALYST GLUCOSE POCT, B Routine 09/30/2023 5:29 PM RECORDS ANALYST GLUCOSE POCT, B Routine 09/30/2023 12:10 PM RECORDS ANALYST DX ABDOMEN 1 VIEW RAD - Routine (most inpatients and all outpatients) 09/30/2023 11:04 AM RECORDS ANALYST GLUCOSE POCT, B Routine 09/30/2023 9:51 AM RECORDS ANALYST PHOSPHORUS (INORGANIC), S Routine 09/30/2023 5:26 AM RECORDS ANALYST MAGNESIUM, S Routine 09/30/2023 5:26 AM RECORDS ANALYST CBC NO CALL BACK, REFLEX T/S Routine 09/30/2023 5:26 AM RECORDS ANALYST BASIC METABOLIC PANEL, S/P Routine 09/30/2023 5:26 AM RECORDS ANALYST GLUCOSE POCT, B Routine 09/29/2023 9:05 PM RECORDS ANALYST GLUCOSE POCT, B Routine 09/29/2023 6:03 PM RECORDS ANALYST GLUCOSE POCT, B Routine 09/29/2023 1:43 PM RECORDS ANALYST GLUCOSE POCT, B Routine 09/29/2023 5:58 AM RECORDS ANALYST CBC NO CALL BACK, REFLEX T/S Routine 09/29/2023 5:30 AM RECORDS ANALYST PHOSPHORUS (INORGANIC), S Routine 09/29/2023 5:30 AM RECORDS ANALYST MAGNESIUM, S Routine 09/29/2023 5:30 AM RECORDS ANALYST BASIC METABOLIC PANEL, S/P Routine 09/29/2023 5:30 AM RECORDS ANALYST GLUCOSE POCT, B Routine 09/28/2023 9:19 PM RECORDS ANALYST GLUCOSE POCT, B Routine 09/28/2023 5:13 PM RECORDS ANALYST GLUCOSE POCT, B Routine 09/28/2023 12:46 PM RECORDS ANALYST GLUCOSE POCT, B Routine 09/28/2023 12:19 PM RECORDS ANALYST GLUCOSE POCT, B Routine 09/28/2023 8:56 AM RECORDS ANALYST PHOSPHORUS (INORGANIC), S Routine 09/28/2023 5:51 AM RECORDS ANALYST MAGNESIUM, S Routine 09/28/2023 5:51 AM RECORDS ANALYST CBC NO CALL BACK, REFLEX T/S Routine 09/28/2023 5:51 AM RECORDS ANALYST BASIC METABOLIC PANEL, S/P Routine 09/28/2023 5:51 AM RECORDS ANALYST GLUCOSE POCT, B Routine 09/27/2023 9:36 PM RECORDS ANALYST POTASSIUM, PLASMA Timed 09/27/2023 8:0 6 PM RECORDS ANALYST GLUCOSE POCT, B Routine 09/27/2023 5:24 PM RECORDS ANALYST POTASSIUM, S/P Timed 09/27/2023 1:55 PM RECORDS ANALYST GLUCOSE POCT, B Routine 09/27/2023 1:01 PM RECORDS ANALYST FL FLUORO LESS THAN 1 HOUR RAD - Routine (most inpatients and all outpatients) 09/27/2023 12:48 PM RECORDS ANALYST LDA ANE ENDOTRACHEAL AIRWAY Routine 09/27/2023 11:54 AM RECORDS ANALYST GASTROENTEROLOGY IMAGE EXAM Routine 09/27/2023 11:25 AM RECORDS ANALYST UPPER GI ENDOSCOPY Routine 09/27/2023 11:22 AM RECORDS ANALYST EGD ? PERCUTANEOUS ENDOSCOPIC GASTROSTOMY/JEJUNOSTOM Y Routine 09/27/2023 11:22 AM RECORDS ANALYST GLUCOSE POCT, B Routine 09/27/2023 11:22 AM RECORDS ANALYST ECG Semiurgent (Fast, most ED patients, some inpatients) 09/27/2023 9:26 AM RECORDS ANALYST GLUCOSE POCT, B Routine 09/27/2023 8:08 AM RECORDS ANALYST PROTHROMBIN TIME (PT), P Routine 09/27/2023 5:53 AM RECORDS ANALYST CBC WITH DIFFERENTIAL, B Routine 09/27/2023 5:53 AM RECORDS ANALYST BASIC METABOLIC PANEL, S/P Routine 09/27/2023 5:53 AM RECORDS ANALYST PHOSPHORUS (INORGANIC), S Routine 09/27/2023 5:48 AM RECORDS ANALYST MAGNESIUM, S Routine 09/27/2023 5:48 AM RECORDS ANALYST URIC ACID, S/P Routine 09/27/2023 5:48 AM RECORDS ANALYST GLUCOSE POCT, B Routine 09/26/2023 8:19 PM RECORDS ANALYST GLUCOSE POCT, B Routine 09/26/2023 5:57 PM RECORDS ANALYST GLUCOSE POCT, B Routine 09/26/2023 3:28 PM RECORDS ANALYST POTASSIUM, S/P Timed 09/26/2023 2:52 PM RECORDS ANALYST GLUCOSE POCT, B Routine 09/26/2023 12:01 PM RECORDS ANALYST ECG Routine 09/26/2023 7:29 AM RECORDS ANALYST CBC WITH DIFFERENTIAL, B Routine 09/26/2023 5:50 AM RECORDS ANALYST BASIC METABOLIC PANEL, S/P Routine 09/26/2023 5:50 AM RECORDS ANALYST GLUCOSE POCT, B Routine 09/25/2023 8:06 PM RECORDS ANALYST GLUCOSE POCT, B Routine 09/25/2023 5:32 PM RECORDS ANALYST GLUCOSE POCT, B Routine 09/25/2023 11:12 AM RECORDS ANALYST GLUCOSE POCT, B Routine 09/25/2023 7:47 AM RECORDS ANALYST CBC WITH DIFFERENTIAL, B Routine 09/25/2023 7:41 AM RECORDS ANALYST BASIC METABOLIC PANEL, S/P Routine 09/25/2023 7:41 AM RECORDS ANALYST GLUCOSE POCT, B Routine 09/24/2023 9:04 PM RECORDS ANALYST GLUCOSE POCT, B Routine 09/24/2023 4:51 PM RECORDS ANALYST GLUCOSE POCT, B Routine 09/24/2023 11:28 AM RECORDS ANALYST NURSING IMAGE EXAM Routine 09/24/2023 8: 51 AM RECORDS ANALYST NURSING IMAGE EXAM Routine 09/24/2023 8: 50 AM RECORDS ANALYST GLUCOSE POCT, B Routine 09/24/2023 7:24 AM RECORDS ANALYST CBC NO CALL BACK, REFLEX T/S Routine 09/24/2023 5:18 AM RECORDS ANALYST BASIC METABOLIC PANEL, S/P Routine 09/24/2023 5:18 AM RECORDS ANALYST GLUCOSE POCT, B Routine 09/23/2023 8:04 PM RECORDS ANALYST GLUCOSE POCT, B Routine 09/23/2023 5:26 PM RECORDS ANALYST GLUCOSE POCT, B Routine 09/23/2023 1:12 PM RECORDS ANALYST DX ABDOMEN PORTABLE ANTERIOR POSTERIOR 1 VIEW RAD - Routine (most inpatients and all outpatients) 09/23/2023 12:25 PM RECORDS ANALYST GLUCOSE POCT, B Routine 09/23/2023 7:33 AM RECORDS ANALYST CBC NO CALL BACK, REFLEX T/S Routine 09/23/2023 5:55 AM RECORDS ANALYST BASIC METABOLIC PANEL, S/P Routine 09/23/2023 5:55 AM RECORDS ANALYST GLUCOSE POCT, B Routine 09/22/2023 10:19 PM RECORDS ANALYST GLUCOSE POCT, B Routine 09/22/2023 5:40 PM RECORDS ANALYST GLUCOSE POCT, B Routine 09/22/2023 12:54 PM RECORDS ANALYST GLUCOSE POCT, B Routine 09/22/2023 11:14 AM RECORDS ANALYST GLUCOSE POCT, B Routine 09/22/2023 7:55 AM RECORDS ANALYST HEPATIC FUNCTION PANEL, S Routine 09/22/2023 7:05 AM RECORDS ANALYST CBC NO CALL BACK, REFLEX T/S Routine 09/22/2023 7:05 AM RECORDS ANALYST BASIC METABOLIC PANEL, S/P Routine 09/22/2023 7:05 AM RECORDS ANALYST GLUCOSE POCT, B Routine 09/21/2023 8:45 PM RECORDS ANALYST GLUCOSE POCT, B Routine 09/21/2023 5:40 PM RECORDS ANALYST GLUCOSE POCT, B Routine 09/21/2023 1:18 PM RECORDS ANALYST GLUCOSE POCT, B Routine 09/21/2023 8:35 AM RECORDS ANALYST CBC NO CALL BACK, REFLEX T/S Routine 09/21/2023 6:43 AM RECORDS ANALYST MAGNESIUM, S Routine 09/21/2023 6:43 AM RECORDS ANALYST PHOSPHORUS (INORGANIC), S Routine 09/21/2023 6:43 AM RECORDS ANALYST BASIC METABOLIC PANEL, S/P Routine 09/21/2023 6:43 AM RECORDS ANALYST GLUCOSE POCT, B Routine 09/20/2023 10:04 PM RECORDS ANALYST GLUCOSE POCT, B Routine 09/20/2023 8:49 PM RECORDS ANALYST MR BRAIN WITHOUT AND WITH IV CONTRAST RAD - Routine (most inpatients and all outpatients) 09/20/2023 6:24 PM RECORDS ANALYST GLUCOSE POCT, B Routine 09/20/2023 1:00 PM RECORDS ANALYST LA ARTHCS ASP/INJ MJR JT WO US Routine 09/20/2023 12:37 PM RECORDS ANALYST Effusion Knee Right CRYSTAL ID, BF Timed 09/20/2023 12:34 PM RECORDS ANALYST CELL COUNT AND DIFFERENTIAL, BF Timed 09/20/2023 12:34 PM RECORDS ANALYST BACTERIA CULT, AEROBE/ANAEROBE+SUSC Timed 09/20/2023 12:34 PM RECORDS ANALYST GRAM STAIN Timed 09/20/2023 12:34 PM RECORDS ANALYST GLUCOSE POCT, B Routine 09/20/2023 7:47 AM RECORDS ANALYST C-REACTIVE PROTEIN (CRP), S/P Routine 09/20/2023 6:18 AM RECORDS ANALYST URIC ACID, S/P Routine 09/20/2023 6:18 AM RECORDS ANALYST CBC NO CALL BACK, REFLEX T/S Routine 09/20/2023 6:18 AM RECORDS ANALYST MAGNESIUM, S Routine 09/20/2023 6:18 AM RECORDS ANALYST PHOSPHORUS (INORGANIC), S Routine 09/20/2023 6:18 AM RECORDS ANALYST BASIC METABOLIC PANEL, S/P Routine 09/20/2023 6:18 AM RECORDS ANALYST GLUCOSE POCT, B Routine 09/19/2023 9:[address] HEAD WITHOUT IV CONTRAST RAD - Emergent (Fastest; for the most critically ill patients) 09/19/2023 4:[address] HEAD NECK ANGIOGRAM WITH IV CONTRAST RAD - Emergent (Fastest; for the most critically ill patients) 09/19/2023 4:12 PM RECORDS ANALYST GLUCOSE POCT, B Routine 09/19/2023 3:12 PM RECORDS ANALYST GLUCOSE POCT, B Routine 09/19/2023 11:42 AM RECORDS ANALYST GLUCOSE POCT, B Routine 09/19/2023 9:31 AM RECORDS ANALYST GLUCOSE POCT, B Routine 09/19/2023 7:37 AM RECORDS ANALYST MAGNESIUM, S Routine 09/19/2023 5:46 AM RECORDS ANALYST PHOSPHORUS (INORGANIC), S Routine 09/19/2023 5:46 AM RECORDS ANALYST CBC WITH DIFFERENTIAL, B Routine 09/19/2023 5:46 AM RECORDS ANALYST BASIC METABOLIC PANEL, S/P Routine 09/19/2023 5:46 AM RECORDS ANALYST GLUCOSE POCT, B Routine 09/18/2023 9:21 PM RECORDS ANALYST GLUCOSE POCT, B Routine 09/18/2023 4:56 PM RECORDS ANALYST BASIC METABOLIC PANEL, S/P Timed 09/18/2023 3:57 PM RECORDS ANALYST PHOSPHORUS (INORGANIC), S Timed 09/18/2023 3:57 PM RECORDS ANALYST MAGNESIUM, S Timed 09/18/2023 3:57 PM RECORDS ANALYST GLUCOSE POCT, B Routine 09/18/2023 12:39 PM RECORDS ANALYST DX ABDOMEN 1 VIEW RAD - Routine (most inpatients and all outpatients) 09/18/2023 10:10 AM RECORDS ANALYST GLUCOSE POCT, B Routine 09/18/2023 7:47 AM RECORDS ANALYST MAGNESIUM, S Routine 09/18/2023 5:16 AM RECORDS ANALYST PHOSPHORUS (INORGANIC), S Routine 09/18/2023 5:16 AM RECORDS ANALYST CBC WITH DIFFERENTIAL, B Routine 09/18/2023 5:16 AM RECORDS ANALYST BASIC METABOLIC PANEL, S/P Routine 09/18/2023 5:16 AM RECORDS ANALYST GLUCOSE POCT, B Routine 09/17/2023 9:00 PM RECORDS ANALYST GLUCOSE POCT, B Routine 09/17/2023 5:15 PM RECORDS ANALYST FL FLUORO LESS THAN 1 HOUR RAD - Routine (most inpatients and all outpatients) 09/17/2023 3:39 PM RECORDS ANALYST SURGICAL PATHOLOGY Routine 09/17/2023 3: 21 PM RECORDS ANALYST LDA ANE ENDOTRACHEAL AIRWAY Routine 09/17/2023 3:09 PM RECORDS ANALYST GASTROENTEROLOGY IMAGE EXAM Routine 09/17/2023 2:40 PM RECORDS ANALYST UPPER GI ENDOSCOPY Routine 09/17/2023 2: 36 PM RECORDS ANALYST EGD (ESOPHAGEALGASTRODUODE NOSCOPY) Routine 09/17/2023 2:36 PM RECORDS ANALYST GLUCOSE POCT, B Routine 09/17/2023 12:03 PM RECORDS ANALYST DX ABDOMEN 1 VIEW RAD - Routine (most inpatients and all outpatients) 09/17/2023 9:38 AM RECORDS ANALYST GLUCOSE POCT, B Routine 09/17/2023 7:54 AM RECORDS ANALYST CBC WITH DIFFERENTIAL, B Routine 09/17/2023 7:26 AM RECORDS ANALYST BASIC METABOLIC PANEL, S/P Routine 09/17/2023 7:26 AM RECORDS ANALYST GLUCOSE POCT, B Routine 09/17/2023 3:37 AM RECORDS ANALYST GLUCOSE POCT, B Routine 09/16/2023 9:07 PM RECORDS ANALYST GLUCOSE POCT, B Routine 09/16/2023 7:06 PM RECORDS ANALYST GLUCOSE POCT, B Routine 09/16/2023 6:22 PM RECORDS ANALYST GLUCOSE POCT, B Routine 09/16/2023 5:17 PM RECORDS ANALYST GLUCOSE POCT, B Routine 09/16/2023 4:49 PM RECORDS ANALYST GLUCOSE POCT, B Routine 09/16/2023 12:59 PM RECORDS ANALYST DX ABDOMEN 1 VIEW RAD - Routine (most inpatients and all outpatients) 09/16/2023 11:20 AM RECORDS ANALYST GLUCOSE POCT, B Routine 09/16/2023 10:17 AM RECORDS ANALYST GLUCOSE POCT, B Routine 09/16/2023 9:12 AM RECORDS ANALYST BASIC METABOLIC PANEL, S/P Routine 09/16/2023 8:01 AM RECORDS ANALYST CBC WITH DIFFERENTIAL, B Routine 09/16/2023 8:01 AM RECORDS ANALYST CMV DNA DETECT/QUANT, P Routine 09/16/2023 5:14 AM RECORDS ANALYST EBV DNA DETECT/QUANT, P Routine 09/16/2023 5:14 AM RECORDS ANALYST GLUCOSE POCT, B Routine 09/15/2023 9:45 PM RECORDS ANALYST GLUCOSE POCT, B Routine 09/15/2023 4:25 PM RECORDS ANALYST GLUCOSE POCT, B Routine 09/15/2023 11:27 AM RECORDS ANALYST TRANSPLANTATION SURG IMAGE EXAM Routine 09/15/2023 8:55 AM RECORDS ANALYST GLUCOSE POCT, B Routine 09/15/2023 8:29 AM RECORDS ANALYST DX ABDOMEN 1 VIEW RAD - Routine (most inpatients and all outpatients) 09/15/2023 8:24 AM RECORDS ANALYST LACTATE DEHYDROGENASE (LD), S Routine 09/15/2023 5:05 AM RECORDS ANALYST COMPREHENSIVE METABOLIC PANEL, S/P Routine 09/15/2023 5:05 AM RECORDS ANALYST CBC WITH DIFFERENTIAL, B Routine 09/15/2023 5:05 AM RECORDS ANALYST HAPTOGLOBIN, S Routine 09/15/2023 5:02 AM RECORDS ANALYST DX ABDOMEN PORTABLE ANTERIOR POSTERIOR 1 VIEW RAD - Semiurgent (Fast; most ED patients; some inpatients) 09/14/2023 10:[address] ABDOMEN PELVIS WITH IV CONTRAST RAD - Semiurgent (Fast; most ED patients; some inpatients) 09/14/2023 9:20 PM RECORDS ANALYST MICROSCOPIC MANUAL STAT 09/14/2023 8: 28 PM RECORDS ANALYST DIPSTICK, U STAT 09/14/2023 8:28 PM RECORDS ANALYST PH, U STAT 09/14/2023 8:28 PM RECORDS ANALYST OSMOLALITY, U STAT 09/14/2023 8:28 PM RECORDS ANALYST URINALYSIS WITH MICROSCOPIC STAT 09/14/2023 8:28 PM RECORDS ANALYST INFLUENZA A, B, RSV, PCR, RAPID, V STAT 09/14/2023 8:28 PM RECORDS ANALYST SARS CORONAVIRUS 2, PCR RAPID, V STAT 09/14/2023 8:28 PM RECORDS ANALYST BACTERIAL CULTURE, AEROBIC + SUSC, URINE STAT 09/14/2023 8:28 PM RECORDS ANALYST LACTATE DEHYDROGENASE (LD), S STAT 09/14/2023 8:18 PM RECORDS ANALYST LACTATE FOR SEPSIS WITH REFLEX, POCT STAT 09/14/2023 8:14 PM RECORDS ANALYST SPSMA RESULT Routine 09/14/2023 8:14 PM RECORDS ANALYST URIC ACID, S/P STAT 09/14/2023 8:14 PM RECORDS ANALYST PHOSPHORUS (INORGANIC), S STAT 09/14/2023 8:14 PM RECORDS ANALYST BASIC METABOLIC PANEL, S/P STAT 09/14/2023 8:14 PM RECORDS ANALYST CBC WITH DIFFERENTIAL, B STAT 09/14/2023 8:14 PM RECORDS ANALYST BACTERIA / JOEL CULTURE, BLOOD STAT 09/14/2023 8:14 PM RECORDS ANALYST BACTERIA / JOEL CULTURE, BLOOD STAT 09/14/2023 8:14 PM RECORDS ANALYST ECG STAT 09/14/2023 7:57 PM RECORDS ANALYST RETICULOCYTES, B Routine 09/14/2023 7:57 PM RECORDS ANALYST CBC WITH DIFFERENTIAL, B Routine 09/10/2023 7:44 AM RECORDS ANALYST Lymphoma Non Hodgkins (HCC) TRANSFUSE RED BLOOD CELLS Routine 09/04/2023 5:59 PM RECORDS ANALYST Lymphoma Non Hodgkins (HCC) Anemia PREPARE RED BLOOD CELLS Routine 09/04/2023 3:16 PM RECORDS ANALYST Lymphoma Non Hodgkins (HCC) Anemia ABORH, RBC Routine 09/04/2023 3:16 PM RECORDS ANALYST TYPE AND SCREEN Routine 09/04/2023 3:16 PM RECORDS ANALYST Lymphoma Non Hodgkins (HCC) Anemia CBC WITH DIFFERENTIAL, B Routine 09/04/2023 10:14 AM RECORDS ANALYST Lymphoma Non Hodgkins (HCC) COMPREHENSIVE METABOLIC PANEL, S/P Routine 09/04/2023 10:13 AM RECORDS ANALYST Lymphoma Non Hodgkins (HCC) CBC WITH DIFFERENTIAL, B Routine 08/26/2023 7:03 AM RECORDS ANALYST Lymphoma Non Hodgkins (HCC) CBC WITH DIFFERENTIAL, B Routine 08/19/2023 8:05 AM RECORDS ANALYST Lymphoma Non Hodgkins (HCC) GASTROENTEROLOGY IMAGE EXAM Routine 08/13/2023 2:10 PM RECORDS ANALYST UPPER GI ENDOSCOPY Routine 08/13/2023 2: 06 PM RECORDS ANALYST Lymphoma Non Hodgkins (HCC) EGD (ESOPHAGEALGASTRODUODE NOSCOPY) Routine 08/13/2023 2:06 PM RECORDS ANALYST Lymphoma Non Hodgkins (HCC) MAGNESIUM, S Routine 08/12/2023 8:28 AM RECORDS ANALYST Hypokalemia COMPREHENSIVE METABOLIC PANEL, S/P Routine 08/12/2023 8:28 AM RECORDS ANALYST Lymphoma Non Hodgkins (HCC) CBC WITH DIFFERENTIAL, B Routine 08/12/2023 8:28 AM RECORDS ANALYST Lymphoma Non Hodgkins (HCC) PET CT SKULL TO THIGH RAD - Routine (most inpatients and all outpatients) 08/09/2023 1:20 PM RECORDS ANALYST Lymphoma Non Hodgkins (HCC) GLUCOSE POCT, B Routine 08/07/2023 11:49 AM RECORDS ANALYST CBC WITHOUT DIFFERENTIAL, B Routine 08/07/2023 9:19 AM RECORDS ANALYST COMPREHENSIVE METABOLIC PANEL, S/P Routine 08/07/2023 9:19 AM RECORDS ANALYST PHOSPHORUS (INORGANIC), S Routine 08/07/2023 9:19 AM RECORDS ANALYST MAGNESIUM, S Routine 08/07/2023 9:19 AM RECORDS ANALYST GLUCOSE POCT, B Routine 08/07/2023 7:45 AM RECORDS ANALYST GLUCOSE POCT, B Routine 08/06/2023 8:19 PM RECORDS ANALYST GLUCOSE POCT, B Routine 08/06/2023 4:01 PM RECORDS ANALYST GLUCOSE POCT, B Routine 08/06/2023 12:12 PM RECORDS ANALYST GLUCOSE POCT, B Routine 08/06/2023 8:21 AM RECORDS ANALYST MAGNESIUM, S Routine 08/06/2023 6:35 AM RECORDS ANALYST BASIC METABOLIC PANEL, S/P Routine 08/06/2023 6:35 AM RECORDS ANALYST CBC WITH DIFFERENTIAL, B Routine 08/06/2023 6:35 AM RECORDS ANALYST HEMOGLOBIN, B Timed 08/06/2023 12:24 AM RECORDS ANALYST TRANSFUSE RED BLOOD CELLS Routine 08/05/2023 9:29 PM RECORDS ANALYST GLUCOSE POCT, B Routine 08/05/2023 8:03 PM RECORDS ANALYST SPSMA RESULT Timed 08/05/2023 7:35 PM RECORDS ANALYST HAPTOGLOBIN, S Timed 08/05/2023 7:35 PM RECORDS ANALYST BASIC METABOLIC PANEL, S/P Timed 08/05/2023 7:35 PM RECORDS ANALYST IRON AND TOT IRON-BINDING CAPACITY, S/P Timed 08/05/2023 7:35 PM RECORDS ANALYST FERRITIN, S Timed 08/05/2023 7:35 PM RECORDS ANALYST LACTATE DEHYDROGENASE (LD), S Timed 08/05/2023 7:35 PM RECORDS ANALYST RETICULOCYTE PROFILE, B Timed 08/05/2023 7:35 PM RECORDS ANALYST CBC WITH DIFFERENTIAL, B Timed 08/05/2023 7:35 PM RECORDS ANALYST SOLUBLE TRANSFERRIN RECEPTOR (STFR), S Routine 08/05/2023 7:30 PM RECORDS ANALYST NURSING IMAGE EXAM Routine 08/05/2023 5: 38 PM RECORDS ANALYST NURSING IMAGE EXAM Routine 08/05/2023 5: 38 PM RECORDS ANALYST NURSING IMAGE EXAM Routine 08/05/2023 5: 38 PM RECORDS ANALYST NURSING IMAGE EXAM Routine 08/05/2023 5: 38 PM RECORDS ANALYST TRANSFUSE RED BLOOD CELLS Routine 08/05/2023 3:27 PM RECORDS ANALYST BACTERIA / JOEL CULTURE, BLOOD STAT 08/05/2023 3:[address] CHEST ANGIOGRAM AND PULMONARY ARTERIES WITH IV CONTRAST RAD - Semiurgent (Fast; most ED patients; some inpatients) 08/05/2023 2:[address] ABDOMEN PELVIS WITH IV CONTRAST RAD - Routine (most inpatients and all outpatients) 08/05/2023 2:24 PM RECORDS ANALYST LACTATE, POCT, B STAT 08/05/2023 1:38 PM RECORDS ANALYST BACTERIA / JOEL CULTURE, BLOOD STAT 08/05/2023 1:36 PM RECORDS ANALYST PROTHROMBIN TIME (PT), P STAT 08/05/2023 1:35 PM RECORDS ANALYST PREPARE RED BLOOD CELLS Routine 08/05/2023 1:06 PM RECORDS ANALYST PREPARE RED BLOOD CELLS Routine 08/05/2023 1:06 PM RECORDS ANALYST LIPASE, S/P STAT 08/05/2023 1:06 PM RECORDS ANALYST HEPATIC FUNCTION PANEL, S STAT 08/05/2023 1:06 PM RECORDS ANALYST TYPE AND SCREEN STAT 08/05/2023 1:06 PM RECORDS ANALYST CBC WITH DIFFERENTIAL, B STAT 08/05/2023 1:06 PM RECORDS ANALYST BASIC METABOLIC PANEL, S/P STAT 08/05/2023 1:06 PM RECORDS ANALYST ECG STAT 08/05/2023 12:31 PM RECORDS ANALYST HEMATOLOGY/ONCOLOGY - BLOOD, EXTERNAL LAB RESULTS Routine 08/05/2023 9:15 AM RECORDS ANALYST HEMATOLOGY/ONCOLOGY - BLOOD, EXTERNAL LAB RESULTS Routine 07/29/2023 9:30 AM RECORDS ANALYST IR IMPLANTED VASCULAR ACCESS DEVICE PLACEMENT RAD - Routine (most inpatients and all outpatients) 07/22/2023 10:31 AM RECORDS ANALYST Lymphoma Non Hodgkins (HCC) Other Intermediate Current Drug Therapy COMPREHENSIVE METABOLIC PANEL, S/P Routine 07/22/2023 9:25 AM RECORDS ANALYST Lymphoma Non Hodgkins (HCC) CBC WITH DIFFERENTIAL, B Routine 07/22/2023 9:25 AM RECORDS ANALYST Lymphoma Non Hodgkins (HCC) OUTSIDE CT BODY Routine 07/17/2023 9:00 PM RECORDS ANALYST from Last 3 Months Results * Lactate, Whole Blood (10/05/2023 12:01 PM RECORDS ANALYST) Only the most recent of2 resultswithin the time period is included. Lactate, B 1.7 0.5 - 2.2 mmol/L 10/05/2023 12:15 PM RECORDS ANALYST STMA Blood (Blood, Arterial) 10/05/2023 12:01 PM RECORDS ANALYST 10/05/2023 12:06 PM RECORDS ANALYST Rich Garcia M.D. LAB BLOOD NON ADD-ON Performing Organization Address City/State/[facility] Co de Phone Number [facility] [address] [place], [place] [id number] [place] [address] [address] [place] [address] * Patient Status (10/05/2023 12:01 PM RECORDS ANALYST) Only the most recent of5 resultswithin the time period is included. FIO2 0.30 0.21=AIR 10/05/2023 12: 06 PM RECORDS ANALYST STMA Device Vent 10/05/2023 12: 06 PM RECORDS ANALYST STMA Blood 10/05/2023 12:0 1 PM RECORDS ANALYST 10/05/2023 12:06 PM RECORDS ANALYST Rich Garcia M.D. LAB BLOOD NON ADD-ON Performing Organization Address [facility] Co de Phone Number [facility] [address] [place], [place] [address] [place] [address] [address] [place] [address] * (ABNORMAL) Blood Gas with Coox, Arterial (10/05/2023 12:01 PM RECORDS ANALYST) Only the most recent of6 resultswithin the time period is included. pO2 128(H) 83 - 108 mm Hg 10/05/2023 12:15 PM RECORDS ANALYST STMA pCO2 32(L) 35 - 48 mm Hg 10/05/2023 12:15 PM RECORDS ANALYST STMA pH 7.36 7.35 - 7.45 pH 10/05/2023 12:15 PM RECORDS ANALYST STMA Base Excess -8(L) -2 - 3 mmol/L 10/05/2023 12:15 PM RECORDS ANALYST STMA HCO3 18(L) 22 - 26 mmol/L 10/05/2023 12:15 PM RECORDS ANALYST STMA Hemoglobin, Venous 10.1(L) 13.2 - 16.6 g/dL 10/05/2023 12:15 PM RECORDS ANALYST STMA O2Hb 97.1 94.0 - 98.0 % 10/05/2023 12:15 PM RECORDS ANALYST STMA COHb 3.0(H) <3.0 % 10/05/2023 12:15 PM RECORDS ANALYST STMA MetHb <1.0 <1.5 % 10/05/2023 12:15 PM RECORDS ANALYST STMA CtO2 14.0(L) 18.0 - 21.0 vol % 10/05/2023 12:15 PM RECORDS ANALYST STMA Arterial Sample Site Art Line 10/05/2023 12:15 PM RECORDS ANALYST STMA Comment:Shai's test not don e. Blood (Blood, Arterial) 10/05/2023 12:01 PM RECORDS ANALYST 10/05/2023 12:06 PM RECORDS ANALYST Rich Garcia M.D. LAB BLOOD NON ADD-ON [facility] [address] [place] [address], [facility] [address] [place] [address] * (ABNORMAL) Glucose, POCT (10/05/2023 11:45 AM RECORDS ANALYST) Only the most recent of102 resultswithin the time period is included. [facility] Glucose, POCT, B 157(H) 70 - 140 mg/dL 10/05/2023 11:47 AM RECORDS ANALYST PCLX Site ARTLINE 10/05/2023 11:47 AM RECORDS ANALYST PCLX Last Intake NPO 10/05/2023 11:47 AM RECORDS ANALYST PCLX Blood 10/05/2023 11:4 5 AM RECORDS ANALYST 10/05/2023 11:48 AM RECORDS ANALYST Unknown Provider LAB POCT ORDERABLES- MANUAL POC [facility] [address] [place] [address], [facility] [email or web address]] PCLX [facility] POC [address] [place] [address] * Transfuse Red Blood Cells : (10/05/2023 11:28 AM RECORDS ANALYST) Only the most recent of6 resultswithin the time period is included. Daniel Pace D.O., M.S. BLOOD TRANSFU APRIL ORDERABLES * Heparin Anti-Xa Assay (10/05/2023 7:21 AM RECORDS ANALYST) Heparin Anti-Xa, P 0.24 IU/mL 2023 8:48 AM RECORDS ANALYST DTL Comment: UFH therapeutic range: ?? 0.30-0.70 IU/mL LMWH therapeutic range: 0.50-1.00 IU/mL 0.50-1.00 IU/mL for twice daily dosing ?? 1.00-2.00 IU/mL for once daily dosing (sample obtained 4-6 hours following subcutaneous injection) LMWH prophylactic range:0.10-0.30 IU/mL ----ADDITIONAL INFORMATION---- Heparin Anti-Xa is used to measure heparin concentrations in patients receiving low molecular weight heparin (LMWH) or unfractionated heparin (UFH). Blood (Blood, Venous) 10/05/2023 7:21 AM RECORDS ANALYST 10/05/2023 7:44 AM RECORDS ANALYST Kimberley Sierra APRN, C.N.P., D.N.P. LAB BLOOD NON ADD-ON [facility] [address] [place] [address], [facility] [[email or web address]] [facility] [address] [place] [address] * DX Chest Portable 1 View (10/05/2023 6:07 AM RECORDS ANALYST) Only the most recent of3 resultswithin the time period is included. Anatomical Region Laterality Modality Chest, Thoracic RST LOS, Tho racic ARZ LOS, Thoracic FLA LOS N/A Digital Radiography Impressions 10/05/2023 8:40 AM RECORDS ANALYST Stable interstitial changes in both lungs since 10/04/2023. This could be due to fibrosis/edema. ET and enteric tubes. Right central line extends superiorly into the neck as previously. Right IJ port catheter tip near the SVC/RA junction. Degenerative changes thoracic spine. Aortic calcification. Narrative 10/05/2023 8:40 AM RECORDS ANALYST EXAM: ??DX CHEST PORTABLE 1 VIEW Procedure Note Luis Antonio Jennings M.D. - 10/05/2023 EXAM: DX CHEST PORTABLE 1 VIEW IMPRESSION: Stable interstitial changes in both lungs since 10/04/2023. This could bedue to fibrosis/edema. ET and enteric tubes. Right central line extendssuperiorly into the neck as previously. Right IJ port catheter tip nearthe SVC/RA junction. Degenerative changes thoracic spine. Aortic calcification. Eliecer Teague APRNN.Ash., D.N.P. IMG DIAGNOSTIC IMAGING PROCEDURES * (ABNORMAL) Calcium, Ionized (10/05/2023 4:28 AM RECORDS ANALYST) Only the most recent of4 resultswithin the time period is included. Calcium, Ionized, B 4.56(L) 4.65 - 5.30 mg/dL 10/05/2023 4:51 AM RECORDS ANALYST STMA Blood 10/05/2023 4:28 AM RECORDS ANALYST 10/05/2023 4:34 AM RECORDS ANALYST Kimberley Sierra APRN, C.N.P., D.N.P. LAB BLOOD NON ADD-ON [facility] [address] [place] [address], [facility] [address] [place] [address] * Cystatin C with Estimated GFR (10/05/2023 4:27 AM RECORDS ANALYST) eGFR by Cystatin C 74 >60 mL/min/BSA 10/05/2023 5:54 AM RECORDS ANALYST DTL Comment: Estimated GFR calculated using the CKD-EPI Cystatin C (2012) equation. ----ADDITIONAL INFORMATION---- Cystatin C-based eGFR may differ substantially from creatinine- based eGFR in patients with abnormal muscle mass or acutely changing renal function. ??Please interpret together with relevant clinical features. On 02/02/2021 the cystatin C assay method changed. Cystatin C eGFR results > 50 ml/min/1.73m2 are approximately 10% lower with the new assay. Cystatin C 1.00 0.67 - 1.21 mg/L 10/05/2023 5:54 AM RECORDS ANALYST DTL Blood (Blood, Venous) 10/05/2023 4:27 AM RECORDS ANALYST 10/05/2023 5:35 AM RECORDS ANALYST Eliecer Teague APRNNJohannaP., D.N.P. LAB BLOOD ADD-ON Performing Organization Address [facility] de Phone Number [facility] [address] DTL [facility] [address] [place] [address] * (ABNORMAL) CBC without Differential (10/05/2023 4:27 AM RECORDS ANALYST) Only the most recent of4 resultswithin the time period is included. Hemoglobin 8.7(L) 13.2 - 16.6 g/dL 10/05/2023 5:31 AM RECORDS ANALYST DTL Hematocrit 25.8(L) 38.3 - 48.6 % 10/05/2023 5:31 AM RECORDS ANALYST DTL Erythrocytes 2.80(L) 4.35 - 5.65 x10(12)/L 10/05/2023 5:31 AM RECORDS ANALYST DTL MCV 92.1 78.2 - 97.9 fL 10/05/2023 5:31 AM RECORDS ANALYST DTL RBC Distrib Width 16.7(H) 11.8 - 14.5 % 10/05/2023 5:31 AM RECORDS ANALYST DTL Platelet Count 165 135 - 317 x10(9)/L 10/05/2023 5:31 AM RECORDS ANALYST DTL Leukocytes 6.0 3.4 - 9.6 x10(9)/L 10/05/2023 5:31 AM RECORDS ANALYST DTL Blood (Blood, Venous) 10/05/2023 4:27 AM RECORDS ANALYST 10/05/2023 5:22 AM RECORDS ANALYST Daniel Pace D.O., M.S. LAB BLOOD ADD -ON Performing Organization Address City/[facility]/ZIP Co de Phone Number [facility] [address] [place] [address], [facility] [[email or web address]] DTL [facility] [address] [place] [address] * Phosphorus Inorganic (10/05/2023 4:27 AM RECORDS ANALYST) Only the most recent of14 resultswithin the time period is included. Phosphorus (Inorganic), S 3.8 2.5 - 4.5 mg/dL 10/05/2023 5:54 AM RECORDS ANALYST DT Blood (Blood, Venous) 10/05/2023 4:27 AM RECORDS ANALYST 10/05/2023 5:35 AM RECORDS ANALYST Kimberley Sierra APRN C.N.P., D.N.P. LAB BLOOD ADD-ON Performing Organization Address City/[facility]/ZIP Co de Phone Number [facility] [address] [place] [id number] * Magnesium (10/05/2023 4:27 AM RECORDS ANALYST) Only the most recent of17 resultswithin the time period is included. Pathologist [facility] Magnesium, S 1.8 1.7 - 2.3 mg/dL 10/05/2023 5:54 AM RECORDS ANALYST [facility] Blood (Blood, Venous) 10/05/2023 4:27 AM RECORDS ANALYST 10/05/2023 5:35 AM RECORDS ANALYST Kimberley Sierra APRN, C.N.P., D.N.P. LAB BLOOD ADD-ON Performing Organization Address City/[facility]/ZIP Co de Phone Number [facility] [address] [place] [address] * (ABNORMAL) Lactate (10/05/2023 4:27 AM RECORDS ANALYST) Only the most recent of3 resultswithin the time period is included. Lactate, P 3.5(H) 0.5 - 2.2 mmol/L 10/05/2023 4:46 AM RECORDS ANALYST STMA Blood (Blood, Venous) 10/05/2023 4:27 AM RECORDS ANALYST 10/05/2023 4:34 AM RECORDS ANALYST Lola Teague APRN.N.P., D.N.P. LAB BLOOD NON ADD-ON [facility] [address] [place] [address], [facility] [address] [place] [address] * (ABNORMAL) Basic Metabolic Panel (10/05/2023 4:27 AM RECORDS ANALYST) Only the most recent of26 resultswithin the time period is included. Pathologist [facility] Potassium, S 4.1 3.6 - 5.2 mmol/L 10/05/2023 5:54 AM RECORDS ANALYST DTL Sodium, S 136 135 - 145 mmol/L 10/05/2023 5:54 AM RECORDS ANALYST DTL Chloride, S 107 98 - 107 mmol/L 10/05/2023 5:54 AM RECORDS ANALYST DTL Bicarbonate, S 16(L) 22 - 29 mmol/L 10/05/2023 5:54 AM RECORDS ANALYST DTL Anion Gap 13 7 - 15 10/05/2023 5:54 AM RECORDS ANALYST DTL BUN (Blood Urea Nitrogen), S 27(H) 8 - 24 mg/dL 10/05/2023 5:54 AM RECORDS ANALYST DTL Creatinine 0.81 0.74 - 1.35 mg/dL 10/05/2023 5:54 AM RECORDS ANALYST DTL Estimated GFR (eGFR) >90 >=60 mL/min/BSA 10/05/2023 5:54 AM RECORDS ANALYST DTL Comment: Estimated GFR calculated using the 2020 CKD_EPI creatinine equation. Calcium, Total, S 7.2(L) 8.8 - 10.2 mg/dL 10/05/2023 5:54 AM RECORDS ANALYST DTL Glucose, S 112 70 - 140 mg/dL 10/05/2023 5:54 AM RECORDS ANALYST DTL Blood (Blood, Venous) 10/05/2023 4:27 AM RECORDS ANALYST 10/05/2023 5:35 AM RECORDS ANALYST Kimberley Sierra APRN, C.N.P., D.N.P. LAB BLOOD ADD-ON Performing Organization Address City/[facility]/ZIP Co de Phone Number [facility] [address] DTL [facility] [address] [place] [address] * Sodium, B (10/05/2023 12:52 AM RECORDS ANALYST) Only the most recent of2 resultswithin the time period is included. Sodium, B 136 135 - 145 mmol/L 10/05/2023 12:59 AM RECORDS ANALYST [facility] Blood (Blood, Arterial Line) 10/05/2023 12:52 AM RECORDS ANALYST 10/05/2023 12:52 AM RECORDS ANALYST Carolee Ferguson M.D. LAB BLOOD NON ADD-ON Performing Organization Address [facility] Co de Phone Number [facility] [address] [place] [address] * (ABNORMAL) Potassium, Blood (10/05/2023 12:52 AM RECORDS ANALYST) Only the most recent of2 resultswithin the time period is included. Potassium, B 3.5(L) 3.6 - 5.2 mmol/L 10/05/2023 12:59 AM RECORDS ANALYST [facility] Blood (Blood, Arterial Line) 10/05/2023 12:52 AM RECORDS ANALYST 10/05/2023 12:52 AM RECORDS ANALYST Carolee Ferguson M.D. LAB BLOOD NON ADD-ON Performing Organization Address City/[facility]/ZIP Co de Phone Number [facility] [address] [place] [address] * Glucose, Whole Blood (10/05/2023 12:52 AM RECORDS ANALYST) Only the most recent of2 resultswithin the time period is included. Glucose 117 70 - 140 mg/dL 10/05/2023 12:59 AM RECORDS ANALYST [facility] Blood (Blood, Arterial Line) 10/05/2023 12:52 AM RECORDS ANALYST 10/05/2023 12:52 AM RECORDS ANALYST Carolee Ferguson M.D. LAB BLOOD ADD-ON Performing Organization Address City/[facility] Co de Phone Number [facility] [address] [place] [address] * APTT (Activated Partial Thromboplastin Time) (10/04/2023 10:08 PM RECORDS ANALYST) Pathologist [facility] Activated Partial Thrombopl Time, P 27 25 - 37 sec 10/04/2023 10:23 PM RECORDS ANALYST [facility] Blood (Blood, Venous) 10/04/2023 10:08 PM RECORDS ANALYST 10/04/2023 10:23 PM RECORDS ANALYST Lola Teague APRN.N.P., D.N.P. LAB BLOOD ADD-ON Performing Organization Address [facility] Co de Phone Number [facility] [address] [place] [address] * (ABNORMAL) Thromboelastograph, Kaolin, Blood (10/04/2023 9:59 PM RECORDS ANALYST) Only the most recent of2 resultswithin the time period is included. R, Kaolin, TEG 6.1 4.0 - 9.0 min 10/04/2023 10:56 PM RECORDS ANALYST [facility] K, Kaolin, TEG 1.1 1.0 - 1.8 min 10/04/2023 10:56 PM RECORDS ANALYST [facility] Angle, Kaolin, TEG 74.9 64.0 - 78.1 degrees 10/04/2023 10:56 PM RECORDS ANALYST [facility] MA, Kaolin, TEG 74.4(H) 57.1 - 72.6 mm 10/04/2023 10:56 PM RECORDS ANALYST STMA Ly30, Kaolin, TEG 0.2 0.0 - 4.8 % 10/04/2023 10:56 PM RECORDS ANALYST STMA Blood (Blood, Venous) 10/04/2023 9:59 PM RECORDS ANALYST 10/04/2023 10:04 PM RECORDS ANALYST Daniel Pace D.O. MJohannaSJohanna LAB BLOOD NON ADD-ON [facility] [address] [place] [address], [facility] [[email or web address]] STMA [facility] [address] [place] [address] * US Upper Extremity Veins Right (10/04/2023 8:40 PM RECORDS ANALYST) Anatomical Region Laterality Modality Upper Extremity, Ultrasound RST LOS, Ultrasound ARZ LOS, Ultrasound FLA LOS Right Ultrasound Impressions 10/05/2023 6:33 AM RECORDS ANALYST 1. Right axillary venous catheter with nonocclusive thrombin cast. 2. 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 3. The right internal jugular, innominate, and subclavian veins were obscured by overlying bandages. Findings were discussed [place] [id number] at 10:00PM on 10/04/2023. Narrative 10/05/2023 6:33 AM RECORDS ANALYST EXAM: US UPPER EXTREMITY VEINS RIGHT Exam performed with color and spectral Doppler analysis. COMPARISON: None. FINDINGS: RIGHT: Somewhat limited evaluation due to overlying bandaging and catheter in the right upper neck/arm. Internal Jugular Vein: Obscured by overlying bandage and catheter. Innominate Vein: Obscured by overlying bandage. Subclavian Vein: Obscured by overlying bandage. Axillary Vein: Intraluminal venous catheter is present with small amount of nonocclusive thrombus in cast about the catheter tubing. Brachial Veins: Patent. Cephalic Vein: Chronic post thrombotic changes of the cephalic vein including diminutive caliber with absent flow. Basilic Vein: Patent. Information on venous thrombosis and management can be found on the [employer] site. Link [email or web address]/topic/clinical-answers/[email or web address] Procedure Note Martinez Flowers M.D. - 10/05/2023 EXAM: US UPPER EXTREMITY VEINS RIGHT Exam performed with color and spectral Doppler analysis. COMPARISON: None. FINDINGS: RIGHT: Somewhat limited evaluation due to overlying bandaging and catheter in theright upper neck/arm. Internal Jugular Vein: Obscured by overlying bandage and catheter. Innominate Vein: Obscured by overlying bandage. Subclavian Vein: Obscured by overlying bandage. Axillary Vein: Intraluminal venous catheter is present with small amountof nonocclusive thrombus in cast about the catheter tubing. Brachial Veins: Patent. Cephalic Vein: Chronic post thrombotic changes of the cephalic veinincluding diminutive caliber with absent flow. Basilic Vein: Patent. Information on venous thrombosis and management can be found on the[employer] site. [email or web address]/clinical-answers/[email or web address] -[email or web address] 1725 IMPRESSION: 1. Right axillary venous catheter with nonocclusive thrombin cast. 2. 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 3. The right internal jugular, innominate, and subclavian veins wereobscured by overlying bandages. Findings were [place] [id number] at 10:00PMon 10/04/2023. Kimberley Sierra APRN, C.N.P., D.N.P. [facility] [place] [place] US PROCEDURES * (ABNORMAL) Urinalysis, Dipstick (10/04/2023 6:39 PM RECORDS ANALYST) [facility] Glucose, U 100(A) Negative mg/dL 10/04/2023 7:46 PM RECORDS ANALYST [facility] Comment: ----ADDITIONAL INFORMATION---- This test has been modified from the fiberglass auto body repairer's instructions. Its performance characteristics were determined by [facility] in a manner consistent with CLIA requirements. This test has not been cleared or approved by the U.S. Food and Drug Administration. Ketone, U Negative Negative mg/dL 10/04/2023 7:46 PM RECORDS ANALYST STMA Comment: ----ADDITIONAL INFORMATION---- This test has been modified from the fiberglass auto body repairer's instructions. Its performance characteristics were determined by [facility] in a manner consistent with CLIA requirements. This test has not been cleared or approved by the U.S. Food and Drug Administration. pH, U 5.0 5.0 - 8.0 pH 10/04/2023 7:46 PM RECORDS ANALYST STMA Comment: ----ADDITIONAL INFORMATION---- This test has been modified from the fiberglass auto body repairer's instructions. Its performance characteristics were determined by [facility] in a manner consistent with CLIA requirements. This test has not been cleared or approved by the U.S. Food and Drug Administration. Protein, U 100(A) Negative mg/dL 10/04/2023 7:46 PM RECORDS ANALYST STMA Comment: ----ADDITIONAL INFORMATION---- This test has been modified from the fiberglass auto body repairer's instructions. Its performance characteristics were determined by [facility] in a manner consistent with CLIA requirements. This test has not been cleared or approved by the U.S. Food and Drug Administration. Blood, U Negative Negative 10/04/2023 7:46 PM RECORDS ANALYST STMA Comment: ----ADDITIONAL INFORMATION---- This test has been modified from the fiberglass auto body repairer's instructions. Its performance characteristics were determined by [facility] in a manner consistent with CLIA requirements. This test has not been cleared or approved by the U.S. Food and Drug Administration. Nitrite, U Negative Negative 10/04/2023 7:46 PM RECORDS ANALYST STMA Comment: ----ADDITIONAL INFORMATION---- This test has been modified from the fiberglass auto body repairer's instructions. Its performance characteristics were determined by [facility] in a manner consistent with CLIA requirements. This test has not been cleared or approved by the U.S. Food and Drug Administration. Leukocyte, U Negative Negative 10/04/2023 7:46 PM RECORDS ANALYST STMA Comment: ----ADDITIONAL INFORMATION---- This test has been modified from the fiberglass auto body repairer's instructions. Its performance characteristics were determined by [facility] in a manner consistent with CLIA requirements. This test has not been cleared or approved by the U.S. Food and Drug Administration. Urine (Urine, Midstream) 10/04/2023 6:39 PM RECORDS ANALYST 10/04/2023 7:43 PM RECORDS ANALYST Juliocesar Hernandez APRN C.N.P. LAB URINE ORDE RABLES [facility] [address] [place] [address], [facility] [[email or web address]] STMA [facility] [address] [place] [address] * (ABNORMAL) Troponin T, 2h/6h, 5th Gen (10/04/2023 5:57 PM RECORDS ANALYST) Troponin T, 2 hr, 5th gen 76(H) <=15 ng/L 10/04/2023 6:26 PM RECORDS ANALYST STMA 2H Delta 2 ng/L 10/04/2023 6:26 PM RECORDS ANALYST STMA 2H Delta Interp Not Changing 10/04/2023 6:26 PM RECORDS ANALYST STMA Troponin T, 6 hr, 5th gen CANCELED ng/L 10/04/2023 6:26 PM RECORDS ANALYST STMA Comment:Result canceled by t he ancillary. 6H Delta CANCELED ng/L 10/04/2023 6:18 PM RECORDS ANALYST STMA Comment:Result canceled by t he ancillary. 6H Delta % CANCELED % 10/04/2023 6:18 PM RECORDS ANALYST STMA Comment:Result canceled by t he ancillary. Blood (Blood, Arterial) 10/04/2023 5:57 PM RECORDS ANALYST 10/04/2023 6:01 PM RECORDS ANALYST Narrative [facility] - 10/04/2023 6:26 PM RECORDS ANALYST Specimen Information: Specimen ID: [id number] Specimen Type: Blood Specimen Collection Start Date: 10/04/2023 ??5:57 PM Specimen Received Date: 10/04/2023 ??6:01 PM Specimen ID: [id number] Specimen Type: Blood Specimen Collection Start Date: 10/04/2023 ??6:25 PM Specimen Received Date: 10/04/2023 ??6:25 PM Lola Ortega APRN.N.P. LAB BLOOD TROP ONIN [facility] [address] [place] [address], [facility] [address] [place] [address] * LA INS NON-JEFRY CVC >5YR, LDA ANE CENTRAL LINE TRIPLE LUMEN, MC ANE CENTRAL LINE GENERIC PERFORMABLE (10/04/2023 4:25 PM RECORDS ANALYST) Jeaneth Rahman M.D. - 10/04/2023 4:25 PM RECORDS ANALYST Mary New APRN, C.N.P. ? 10/04/2023 ??4:30 PM Invasive Line Performed by: Mary New APRN, C.N.P. Authorized by: Mary New APRN, C.N.P. ?? Care team members present 1. Jeaneth Gonzalez M.D. Location: ICU/PCU PROCEDURE DETAILS: Line type: central venous ?? Laterality: right Location: jugular internal Location details: new site ?? Patient position: Trendelenburg ?? Age group: adult Line Type: temporary (non-tunneled, non-implanted) Introducer: no ?? Lumen(s): triple lumen Catheter diameter: 7 Fr Catheter insertion depth (cm): 16 cm Site the catheter was advanced to (this is the intended location and does not need to be proven by radiologic exam): central venous circulation ?? Technique: ultrasound guided ?? Ultrasound guidance: image not saved Vessel transduced: yes ?? Number of attempts: 1 CONSENT Consent obtained: none - emergent situation UNIVERSAL PROTOCOL All relevant documentation and testing were reviewed and available. All required blood products, implants, devices and or special equipment were made available as applicable. Pre-procedure verification was conducted and the correct site was marked if required. A fire risk assessment was done as applicable. The procedural time-out to verify correct patient, correct side/site, and procedure was conducted prior to performing the procedure and confirmed in a procedural pause. PRE-PROCEDURE DETAILS: Indication(s): medication/nutrition requiring central access Appropriate hand hygiene, gown, cap, mask, protective eyewear, sterile gloves, skin preparation, sterile drape, and strict aseptic technique were utilized as applicable for the procedure.: yes ?? Skin preparation: chlorhexidine ?? SEDATION / ANESTHESIA Anesthesia method: already under sedation POST-PROCEDURE DETAILS: Procedure completed successfully: yes ?? Line secured: secured with sutureless device Chlorhexidine disc around insertion site and under catheter with slight turn: yes ?? Notable Events: none ?? Patient tolerance of procedure: successful Mary New APRN, C.N.P. PROCEDU RE/MINOR SURGICAL ORDERABLES * ECG 12 Lead (10/04/2023 4:17 PM RECORDS ANALYST) Only the most recent of6 resultswithin the time period is included. Ventricular Rate ECG/Min 109 BPM MUSE LA Interval 162 ms MUSE QRSD Interval 94 ms MUSE QT Interval 344 ms MUSE QTC Interval 463 ms MUSE P [place] 52 degrees MUSE R [place] 76 degrees MUSE T Wave [place] 63 degrees MUSE 10/04/2023 4:17 PM RECORDS ANALYST 10/04/2023 4:20 PM RECORDS ANALYST Impressions MUSE - 10/04/2023 4:20 PM RECORDS ANALYST Sinus tachycardia Nonspecific ST and T wave abnormality When compared with ECG of 04-OCT-2023 08:16, Premature atrial complexes are no longer present Reviewed by Marito Fairbanks III, CRAT Narrative Procedure Note Dionicio Kellye M.D. - 10/04/2023 IMPRESSION: Sinus tachycardia Nonspecific ST and T wave abnormality When compared with ECG of 04-OCT-2023 08:16, Premature atrial complexes are no longer present Reviewed by Marito Fairbanks III, CRAT Juliocesar Hernandez APRN C.N.P. ECG ORDERABLES MUSE NA * (ABNORMAL) Troponin T, Baseline, 5th gen (10/04/2023 3:49 PM RECORDS ANALYST) Troponin T, Baseline, 5th gen 74(H) <=15 ng/L 10/04/2023 4:17 PM RECORDS ANALYST STMA Blood (Blood, Arterial) 10/04/2023 3:49 PM RECORDS ANALYST 10/04/2023 3:54 PM RECORDS ANALYST Juliocesar Hernandez APRN, C.N.P. LAB BLOOD TROP ONIN Performing Organization Address City/[facility]/ZIP Co de Phone Number [facility] [address] [place] [address], [facility] [[email or web address]] STMA [facility] [address] [place] [address] * (ABNORMAL) Hepatic Function Panel (10/04/2023 3:49 PM RECORDS ANALYST) Only the most recent of4 resultswithin the time period is included. Pathologist [facility] Bilirubin, Total, S 0.9 0.0 - 1.2 mg/dL 10/04/2023 5:04 PM RECORDS ANALYST DTL Bilirubin, Direct, S 0.7(H) 0.0 - 0.3 mg/dL 10/04/2023 5:04 PM RECORDS ANALYST DTL Aspartate Aminotransferase (AST), S 27 8 - 48 U/L 10/04/2023 5:04 PM RECORDS ANALYST DTL Alanine Aminotransferase (ALT), S 16 7 - 55 U/L 10/04/2023 5:04 PM RECORDS ANALYST DTL Alkaline Phosphatase, S 114 40 - 129 U/L 10/04/2023 5:31 PM RECORDS ANALYST DTL Albumin, S 2.6(L) 3.5 - 5.0 g/dL 10/04/2023 5:04 PM RECORDS ANALYST DTL Protein, Total, S 4.2(L) 6.3 - 7.9 g/dL 10/04/2023 5:04 PM RECORDS ANALYST DTL Blood (Blood, Venous) 10/04/2023 3:49 PM RECORDS ANALYST 10/04/2023 4:29 PM RECORDS ANALYST Juliocesar Hernandez APRN C.N.P. LAB BLOOD ADD- ON [facility] [address] [place] [address], [facility] [[email or web address]] DTL [facility] [address] [place] [address] * (ABNORMAL) Prothrombin Time (PT) (10/04/2023 3:49 PM RECORDS ANALYST) Only the most recent of4 resultswithin the time period is included. Prothrombin Time, P 14.6(H) 9.4 - 12.5 sec 10/04/2023 4:27 PM RECORDS ANALYST [facility] 1.3 0.9 - 1.1 10/04/2023 4:27 PM RECORDS ANALYST [facility] Comment: ----ADDITIONAL INFORMATION---- Standard intensity warfarin therapeutic range: 2.0 to 3.0 ?? High intensity warfarin therapeutic range: 2.5 to 3.5 Blood (Blood, Venous) 10/04/2023 3:49 PM RECORDS ANALYST 10/04/2023 3:54 PM RECORDS ANALYST Juliocesar Hernandez APRN, C.N.P. LAB BLOOD ADD- ON [facility] [address] [place] [address], [facility] [address] [place] [address] * LA ARTL CATH/CNULA MONITOR PERC, LDA ANE ARTERIAL LINE INSERTION (10/04/2023 1:45 PM RECORDS ANALYST) Narrative Ronald De Paz M.D. - 10/04/2023 1:45 PM RECORDS ANALYST Jose De Jesus Felix M.D. ? 10/04/2023 ??1:45 PM Invasive Catheter Date/Time: 10/04/2023 1:45 PM Performed by: Jose De Jesus Felix M.D. Authorized by: Ronald De Paz M.D. ?? Location: OR PROCEDURE DETAILS: Line type: arterial ?? Laterality: left Location: brachial Location details: new site ? Age group: adult Catheter diameter: 20 Ga Technique: ultrasound guided ?? Ultrasound guidance: image not saved Monitored: yes ?? Number of attempts: 2 UNIVERSAL PROTOCOL All relevant documentation and testing were reviewed and available. All required blood products, implants, devices and or special equipment were made available as applicable. Pre-procedure verification was conducted and the correct site was marked if required. A fire risk assessment was done as applicable. The procedural time-out to verify correct patient, correct side/site, and procedure was conducted prior to performing the procedure and confirmed in a procedural pause. PRE-PROCEDURE DETAILS: Appropriate hand hygiene, gown, cap, mask, protective eyewear, sterile gloves, skin preparation, sterile drape, and strict aseptic technique were utilized as applicable for the procedure.: yes ?? Skin preparation: chlorhexidine ?? SEDATION / ANESTHESIA Anesthesia method: topical application Topical application type: lidocaine POST-PROCEDURE DETAILS: Procedure completed successfully: yes ?? Line secured: secured with sutureless device Chlorhexidine disc around insertion site and under catheter with slight turn: yes ?? Notable Events - arterial: none COMMENTS Exchanged for [employer] ATTESTATION STATEMENT A resident or fellow participated in the procedure, and the mobile sales consultant was present for the entire procedure. Ronald De Paz M.D. PROCEDURE/MINOR STEPHAN GICAL ORDERABLES * LDA ANE ENDOTRACHEAL AIRWAY (10/04/2023 1:19 PM RECORDS ANALYST) Narrative Keena Diggs APRN, CRNA - 10/04/2023 1:19 PM RECORDS ANALYST Keena Diggs APRN, CRNA ? 10/04/2023 ??1:49 PM Airway Date/Time: 10/04/2023 1:19 PM Performed by: Keena Diggs APRN, CRNA Authorized by: Ronald De Paz M.D. ?? Patient location during procedure: OR / Procedure Area PROCEDURE DETAILS: Mask difficulty assessment: easy mask Final airway type: video laryngoscope Laryngeal Manipulation: no ?? Final best view of glottic structures - Cormack/Lehane Score: grade 1 ETT location: oral VL device: glide scope [place] scope blade size: 4 Tube size: 7.5 ETT distance at teeth/gum: 23 Oral tube type: standard ETT Cuffed: yes Leak Test Performed: no ?? Number of attempt to successful placement: 1 Airway confirmation: bilateral breath sounds, positive ETCO2 and bilateral chest rise Other previous techniques attempted: none PRE PROCEDURE DETAILS: Pre evaluation for airway management: procedure Urgency: elective Preoxygenation: bag valve mask SEDATION / ANESTHESIA Anesthesia method: anesthesia POST PROCEDURE DETAILS: ? Procedure outcome: successful ?? Notable Events: no complications Ronald De Paz M.D. ANESTHESIA ORDERABL ES * Critical Care (10/04/2023 10:29 AM RECORDS ANALYST) Narrative Jayna Albert M.D. - 10/04/2023 10:29 AM RECORDS ANALYST Jayna Albert M.D. ? 10/04/2023 11:19 AM Critical Care Performed by: Jayna Albert M.D. Authorized by: Jayna Albert M.D. ?? Critical care provider statement: Critical care total time (minutes): 45 Critical care time was exclusive of: separately billable procedures and treating other patients and teaching time CPR was performed on this patient: no ?? Critical care was necessary to treat or prevent imminent or life-threatening deterioration of the following conditions: shock Critical care was time spent personally by me on the following activities: blood draw for specimens, development of treatment plan with patient or surrogate, discussing treatment issues with family or surrogate, discussions with consultants, documenting in the patient chart, evaluation of patient's response to treatment, examination of patient, review of old charts, re-evaluation of patient's condition, ordering and review of radiographic studies, ordering and review of laboratory studies, ordering and performing treatments and interventions and obtaining history from patient or surrogate Jayna Albert M.D. PROCEDURE/MINOR S URGICAL ORDERABLES * CT Abdomen Pelvis with IV Contrast (10/04/2023 9:56 AM RECORDS ANALYST) Only the most recent of3 resultswithin the time period is included. Anatomical Region Laterality Modality Abdomen, Pelvis, Abdominal R ST LOS, Abdominal ARZ LOS, Abdominal FLA LOS N/A Computed Tomograp hy, Computed Tomography 10/04/2023 9:47 AM RECORDS ANALYST Impressions 10/04/2023 10:29 AM RECORDS ANALYST 1. Massive portal venous gas and gas throughout the mesenteric venous system with gas extending into the external iliac and proximal common femoral veins. 2. Multiple loops of dilated mid and distal small bowel without transition point. Extensive pneumatosis and lack of enhancement concerning for ischemia. No free fluid in the abdomen or pelvis. 3. Interval placement of a percutaneous gastrojejunostomy tube. Critical findings discussed with Jayna Albert M.D. ([id number]) at 10:20 AM on 10/04/2023. Narrative 10/04/2023 10:29 AM RECORDS ANALYST EXAM: ??CT ABDOMEN PELVIS WITH IV CONTRAST COMPARISON: ??09/14/2023 FINDINGS: ??Large volume portal venous gas and large amount of gas within branches of the mesenteric veins. The gas extends into the external iliac veins and proximal common femoral veins. Multiple loops of dilated mid and distal small bowel with extensive pneumatosis and lack of enhancement concerning for ischemia. No free fluid in the abdomen or pelvis. 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 The SMA reconstitutes distally. Interval placement of a percutaneous gastrojejunostomy tube with tip in the proximal jejunum. Interval decompression of the dilated duodenum. Again noted is the ill-defined mass in the duodenum. Stable enlarged central mesenteric lymph node (series 3 image 83). Procedure Note Danna Lock M.D. - 10/04/2023 EXAM: CT ABDOMEN PELVIS WITH IV CONTRAST COMPARISON: 09/14/2023 FINDINGS: Large volume portal venous gas and large amount of gas withinbranches of the mesenteric veins. The gas extends into the external iliacveins and proximal common femoral veins. Multiple loops of dilated mid anddistal small bowel with extensive pneumatosis and lack of enhancement concerning for ischemia. Nofree fluid in the abdomen or pelvis. 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 The SMAreconstitutes distally. Interval placement of a percutaneous gastrojejunostomy tube with tip inthe proximal jejunum. Interval decompression of the dilated duodenum.Again noted is the ill-defined mass in the duodenum. Stable enlarged central mesenteric lymph node (series 3 image 83). IMPRESSION: 1. Massive portal venous gas and gas throughout the mesenteric venoussystem with gas extending into the external iliac and proximal commonfemoral veins. 2. Multiple loops of dilated mid and distal small bowel without transitionpoint. Extensive pneumatosis and lack of enhancement concerning forischemia. No free fluid in the abdomen or pelvis. 3. Interval placement of a percutaneous gastrojejunostomy tube. Critical findings discussed with Jayna Albert M.D. ([id number]) at 10:20 Ember 10/04/2023. Jayna Albert M.D. IMG CT PROCEDURES * Lactate for Sepsis with Reflex, POCT (10/04/2023 8:41 AM RECORDS ANALYST) Only the most recent of2 resultswithin the time period is included. Lactate, POCT 1.80 0.50 - 2.20 mmol/L 10/04/2023 9:05 AM RECORDS ANALYST PCLX Blood (Blood, Venous) 10/04/2023 8:41 AM RECORDS ANALYST 10/04/2023 8:41 AM RECORDS ANALYST Jayna Albert M.D. LAB POCT ORDERABL ES - DEVICE POC [facility] [address] [place] [address], [facility] [[email or web address]] PCLX [facility] POC [address] [place] [address] * (ABNORMAL) CBC with Differential, Blood (10/04/2023 8:41 AM RECORDS ANALYST) Only the most recent of21 resultswithin the time period is included. Hemoglobin 8.9(L) 13.2 - 16.6 g/dL 10/04/2023 8:59 AM RECORDS ANALYST STMA Hematocrit 27.9(L) 38.3 - 48.6 % 10/04/2023 8:59 AM RECORDS ANALYST STMA Erythrocytes 3.02(L) 4.35 - 5.65 x10(12)/L 10/04/2023 8:59 AM RECORDS ANALYST STMA MCV 92.4 78.2 - 97.9 fL 10/04/2023 8:59 AM RECORDS ANALYST STMA RBC Distrib Width 16.5(H) 11.8 - 14.5 % 10/04/2023 8:59 AM RECORDS ANALYST STMA Platelet Count 152 135 - 317 x10(9)/L 10/04/2023 8:59 AM RECORDS ANALYST STMA Leukocytes 2.9(L) 3.4 - 9.6 x10(9)/L 10/04/2023 8:59 AM RECORDS ANALYST STMA Neutrophils 2.40 1.56 - 6.45 x10(9)/L 10/04/2023 8:59 AM RECORDS ANALYST DHPM Lymphocytes 0.19(L) 0.95 - 3.07 x10(9)/L 10/04/2023 8:59 AM RECORDS ANALYST STMA Monocytes 0.27 0.26 - 0.81 x10(9)/L 10/04/2023 8:59 AM RECORDS ANALYST STMA Eosinophils 0.05 0.03 - 0.48 x10(9)/L 10/04/2023 8:59 AM RECORDS ANALYST STMA Basophils <0.03 0.01 - 0.08 x10(9)/L 10/04/2023 8:59 AM RECORDS ANALYST STMA Blood (Blood, Venous) 10/04/2023 8:41 AM RECORDS ANALYST 10/04/2023 8:56 AM RECORDS ANALYST Jayna Albert M.D. LAB BLOOD ADD-ON Performing Organization Address City/[facility]/ZIP Co de Phone Number [facility] [address] [place] [address], [facility] [[email or web address]] STMA [facility] [address] [place] [address] [facility] [address] [place] [address] * (ABNORMAL) Lipase (10/04/2023 8:41 AM RECORDS ANALYST) Only the most recent of2 resultswithin the time period is included. Lipase, S 11(L) 13 - 60 U/L 10/04/2023 9: 44 AM RECORDS ANALYST DTL Blood (Blood, Venous) 10/04/2023 8:41 AM RECORDS ANALYST 10/04/2023 9:27 AM RECORDS ANALYST Jayna Albert M.D. LAB BLOOD ADD-ON Performing Organization Address City/[facility] Co de Phone Number [facility] [address] [place] [address], [facility] [[email or web address]] [facility] [address] [place] [address] * Soluble Transferrin Receptor (sTfR) (10/03/2023 12:33 PM RECORDS ANALYST) Only the most recent of2 resultswithin the time period is included. Soluble Transferrin Receptor (sTfR) 3.3 1.8 - 4.6 mg/L 10/03/2023 4:11 PM RECORDS ANALYST DTL Comment: ----ADDITIONAL INFORMATION---- It is reported that Americans may have slightly higher values. Blood (Blood, Venous) 10/03/2023 12:33 PM RECORDS ANALYST 10/03/2023 1:04 PM RECORDS ANALYST West Mendoza APRN, C.N.P., Scott PIERCE BLOOD ADD-ON Performing Organization Address City/[facility] Co de Phone Number [facility] [address] [place] [address], [facility] [[email or web address]] DTL [facility] [address] [place] [address] * 25-Hydroxyvitamin D2 and D3 (10/03/2023 12:33 PM RECORDS ANALYST) 25-Hydroxy D2 <4.0 ng/mL 10/04/2023 3:37 PM RECORDS ANALYST SDSC 25-Hydroxy D3 48 ng/mL 10/04/2023 3:37 PM RECORDS ANALYST SDSC 25-Hydroxy D Total 48 ng/mL 2023 3:37 PM RECORDS ANALYST SDS Comment: ----REFERENCE VALUE---- 25-HYDROXY D TOTAL (D2+D3) Optimum levels in the healthy population are 20-50, patients with bone disease may benefit from higher levels within this range. ----ADDITIONAL INFORMATION---- This test was developed and its performance characteristics determined by [facility] in a manner consistent with CLIA requirements. This test has not been cleared or approved by the U.S. Food and Drug Administration. Blood (Blood, Venous) 10/03/2023 12:33 PM RECORDS ANALYST 10/04/2023 7:30 AM RECORDS ANALYST West Mendoza APRN, C.N.P., Scott PIERCE BLOOD ADD-ON Performing Organization Address City/[facility]/ZIP Co de Phone Number [facility] [address] [place] [address] [facility] [address] [place] [address] [place] [address] * Vitamin B12 Assay (10/03/2023 12:33 PM RECORDS ANALYST) Vitamin B12 Assay, S 859 180 - 914 ng/L 10/03/2023 1:49 PM RECORDS ANALYST DTL Comment: ----ADDITIONAL INFORMATION---- In patients being evaluated for vitamin B12 deficiency who have intrinsic factor blocking antibodies (IFBA), false elevations of B12 may occur due to IFBA interference thus potentially obscuring a physiological deficiency of B12. If observed B12 concentrations are discordant with clinical presentation, measurement of methylmalonic acid (MMA) should be considered. Blood (Blood, Venous) 10/03/2023 12:33 PM RECORDS ANALYST 10/03/2023 1:04 PM RECORDS ANALYST West Mendoza APRN, C.N.P., M.SJohanna PIERCE BLOOD ADD-ON [facility] [address] [place] [address], [facility] [[email or web address]] [facility] [address] [place] [address] * (ABNORMAL) Comprehensive Metabolic Panel (10/03/2023 12:33 PM RECORDS ANALYST) Only the most recent of6 resultswithin the time period is included. Pathologist [facility] Potassium, S 5.2 3.6 - 5.2 mmol/L 10/03/2023 4:11 PM RECORDS ANALYST DTL Sodium, S 137 135 - 145 mmol/L 10/03/2023 4:11 PM RECORDS ANALYST DTL Chloride, S 102 98 - 107 mmol/L 10/03/2023 4:11 PM RECORDS ANALYST DTL Bicarbonate, S 23 22 - 29 mmol/L 10/03/2023 4:11 PM RECORDS ANALYST DTL Anion Gap 12 7 - 15 10/03/2023 4:11 PM RECORDS ANALYST DTL BUN (Blood Urea Nitrogen), S 30(H) 8 - 24 mg/dL 10/03/2023 4:11 PM RECORDS ANALYST DTL Creatinine 0.80 0.74 - 1.35 mg/dL 10/03/2023 4:11 PM RECORDS ANALYST DTL Estimated GFR (eGFR) >90 >=60 mL/min/BS A 10/03/2023 4:11 PM RECORDS ANALYST DTL Comment: Estimated GFR calculated using the 2020 CKD_EPI creatinine equation. Calcium, Total, S 8.4(L) 8.8 - 10.2 mg/dL 10/03/2023 4:11 PM RECORDS ANALYST DTL Glucose, S 130 70 - 140 mg/dL 10/03/2023 4:11 PM RECORDS ANALYST DTL Protein, Total, S 5.2(L) 6.3 - 7.9 g/dL 10/03/2023 4:11 PM RECORDS ANALYST DTL Albumin, S 3.4(L) 3.5 - 5.0 g/dL 10/03/2023 4:11 PM RECORDS ANALYST DTL Aspartate Aminotransferase (AST), S 20 8 - 48 U/L 10/03/2023 4:11 PM RECORDS ANALYST DTL Alkaline Phosphatase, S 147(H) 40 - 129 U/L 10/03/2023 4:11 PM RECORDS ANALYST DTL Alanine Aminotransferase (ALT), S 20 7 - 55 U/L 10/03/2023 4:11 PM RECORDS ANALYST DTL Bilirubin, Total, S <0.2 0.0 - 1.2 mg/dL 10/03/2023 4:11 PM RECORDS ANALYST DTL Blood (Blood, Venous) 10/03/2023 12:33 PM RECORDS ANALYST 10/03/2023 1:04 PM RECORDS ANALYST Sarah Reardon M.D. LAB BLOOD ADD-ON Performing Organization Address City/[facility]/ZIP Co de Phone Number [facility] [address] [place] [address] * (ABNORMAL) Hemoglobin (10/02/2023 8:36 AM RECORDS ANALYST) Only the most recent of2 resultswithin the time period is included. Hemoglobin 7.9(L) 13.2 - 16.6 g/dL 10/02/2023 9:09 AM RECORDS ANALYST DTL Blood (Blood, Venous) 10/02/2023 8:36 AM RECORDS ANALYST 10/02/2023 8:55 AM RECORDS ANALYST Alessanrdo Gonzáles M.D. LAB BLOOD ADD-ON [facility] [address] [place] [address], [facility] [[email or web address]] [place] [address] * (ABNORMAL) CBC no call back, reflex T/S HGB <8 (10/02/2023 5:51 AM RECORDS ANALYST) Only the most recent of9 resultswithin the time period is included. Hemoglobin 7.8(L) 13.2 - 16.6 g/dL 10/02/2023 6:31 AM RECORDS ANALYST DTL Hematocrit 24.2(L) 38.3 - 48.6 % 10/02/2023 6:31 AM RECORDS ANALYST DTL Erythrocytes 2.57(L) 4.35 - 5.65 x10(12)/L 10/02/2023 6:31 AM RECORDS ANALYST DTL MCV 94.2 78.2 - 97.9 fL 10/02/2023 6:31 AM RECORDS ANALYST DTL RBC Distrib Width 16.5(H) 11.8 - 14.5 % 10/02/2023 6:31 AM RECORDS ANALYST DTL Platelet Count 154 135 - 317 x10(9)/L 10/02/2023 6:31 AM RECORDS ANALYST DTL Leukocytes 3.9 3.4 - 9.6 x10(9)/L 10/02/2023 6:31 AM RECORDS ANALYST DTL Neutrophils 3.26 1.56 - 6.45 x10(9)/L 10/02/2023 6:31 AM RECORDS ANALYST DHPM Lymphocytes 0.20(L) 0.95 - 3.07 x10(9)/L 10/02/2023 6:31 AM RECORDS ANALYST DTL Monocytes 0.27 0.26 - 0.81 x10(9)/L 10/02/2023 6:31 AM RECORDS ANALYST DTL Eosinophils 0.18 0.03 - 0.48 x10(9)/L 10/02/2023 6:31 AM RECORDS ANALYST DTL Basophils <0.03 0.01 - 0.08 x10(9)/L 10/02/2023 6:31 AM RECORDS ANALYST DTL Blood (Blood, Venous) 10/02/2023 5:51 AM RECORDS ANALYST 10/02/2023 6:20 AM RECORDS ANALYST Renee Mancilla M.D. LAB BLOOD NON ADD-ON [facility] [address] [place] [address], [facility] [[email or web address]] DTL [facility] [address] [place] [address] DHPM [facility] [address] [place] [address] * Type and Screen (with Reflex Antibody ID) (10/02/2023 5:51 AM RECORDS ANALYST) Only the most recent of3 resultswithin the time period is included. ABORh A Pos Not applicable 10/02/2023 8:32 AM RECORDS ANALYST ETRM Antibody Screen Negative Negative 10/02/2023 8:39 AM RECORDS ANALYST ETRM Type & Screen Expiration 10/05/2023 23:59 10/02/2023 8:32 AM RECORDS ANALYST ETRM Testing Location Lisa DEFAULT 10/02/2023 7:56 AM RECORDS ANALYST ETRM Blood 10/02/2023 5:51 AM RECORDS ANALYST 10/02/2023 7:56 AM RECORDS ANALYST Renee Mancilla M.D. LAB BLOOD BANK TEST ORDERABLES [facility] [address] [place] [address], [facility] [[email or web address]] ETRM [facility] [address] [place] [address] * Foot, Right-Nursing Image Exam (10/01/2023 10:26 AM RECORDS ANALYST) Only the most recent of8 resultswithin the time period is included. 10/01/2023 10:2 4 AM RECORDS ANALYST Narrative IIMS - 10/01/2023 10:26 AM RECORDS ANALYST This order has been created and auto-finalized to support the import of images acquired without order. The clinical documentation to support these images can be found on the encounter that produced images. Provider Not In System IMG NON RAD IMAGI NG PROCEDURES IIMS NA * DX Abdomen 1 View (09/30/2023 11:04 AM RECORDS ANALYST) Only the most recent of5 resultswithin the time period is included. Anatomical Region Laterality Modality Abdomen, Abdominal RST LOS, Abdominal ARZ LOS, Abdominal FLA LOS N/A Digital Radiography Impressions 09/30/2023 11:45 AM RECORDS ANALYST PEG tube with jejunal extension with tip terminating in the proximal jejunum, grossly unchanged in position since 09/27/2023. Positive enteric contrast within the transverse and descending colon. Nonobstructive bowel gas pattern. Visualized lung bases are clear. L4-L5 laminectomies. Vascular calcifications. Narrative 09/30/2023 11:45 AM RECORDS ANALYST EXAM: ??DX ABDOMEN 1 VIEW Procedure Note Maira Kwon M.D. - 09/30/2023 EXAM: DX ABDOMEN 1 VIEW IMPRESSION: PEG tube with jejunal extension with tip terminating in the proximaljejunum, grossly unchanged in position since 09/27/2023. Positive entericcontrast within the transverse and descending colon. Nonobstructive bowelgas pattern. Visualized lung bases are clear. L4-L5 laminectomies. Vascularcalcifications. Alessandro Gonzáles M.D. IMG DIAGNOSTIC IMAGI NG PROCEDURES * Potassium, Plasma (09/27/2023 8:06 PM RECORDS ANALYST) Potassium, P 5.0 3.6 - 5.2 mmol/L 09/27/2023 8:37 PM RECORDS ANALYST DTL Blood (Blood, Venous) 09/27/2023 8:06 PM RECORDS ANALYST 09/27/2023 8:28 PM RECORDS ANALYST Luis Antonio Jacinto M.D. LAB BLOOD ADD-ON [facility] [address] [place] [address], [facility] [[email or web address]] [facility] [address] [place] [address] * (ABNORMAL) Potassium (09/27/2023 1:55 PM RECORDS ANALYST) Only the most recent of2 resultswithin the time period is included. Potassium, S 5.4(H) 3.6 - 5.2 mmol/L 09/27/2023 3:09 PM RECORDS ANALYST DTL Blood (Blood, Venous) 09/27/2023 1:55 PM RECORDS ANALYST 09/27/2023 2:54 PM RECORDS ANALYST Renee Mancilla M.D. LAB BLOOD ADD-ON Performing Organization Address City/[facility]/ZIP Co de Phone Number [facility] [address] [place] [address], [facility] [[email or web address]] DTL [facility] [address] [place] [address] * FL Fluoro Less Than 1 Hour (09/27/2023 12:48 PM RECORDS ANALYST) Only the most recent of2 resultswithin the time period is included. Narrative ERCP LOS RST - 09/27/2023 12:49 PM RECORDS ANALYST This exam does not require a radiologist review or interpretation. Please refer to the patient's medical record on this date for clinical details. Alessandro Gonzáles M.D. IMG FLUOROSCOPY PROC EDURES Performing Organization Address City/[facility] Co de Phone Number ERCP LOS RST * LDA ANE ENDOTRACHEAL AIRWAY (09/27/2023 11:54 AM RECORDS ANALYST) Narrative Michelle Waite APRN, CRNA, D.N.P. - 09/27/2023 11:54 AM RECORDS ANALYST Michelle Waite APRN, CRNA, D.N.P. ? 09/27/2023 12:09 PM Airway Date/Time: 09/27/2023 11:54 AM Performed by: Michelle Waite APRN, CRNA, D.N.P. Authorized by: Michelle Waite APRN, CRNA, D.N.P. ?? Patient location during procedure: OR / Procedure Area PROCEDURE DETAILS: Mask difficulty assessment: easy mask Final airway type: video laryngoscope Laryngeal Manipulation: no ?? Final best view of glottic structures - Cormack/Lehane Score: grade 1 ETT location: oral VL device: glide scope [place] scope blade size: 4 Tube size: 7 ETT distance at teeth/gum: 25 Oral tube type: standard ETT Cuffed: yes Leak Test Performed: no ?? Number of attempt to successful placement: 1 Airway confirmation: bilateral breath sounds, positive ETCO2 and bilateral chest rise Other previous techniques attempted: none PRE PROCEDURE DETAILS: Pre evaluation for airway management: procedure Urgency: elective Preop assessment of probable difficulty: no difficulty anticipated Preoxygenation: bag valve mask SEDATION / ANESTHESIA Anesthesia method: anesthesia POST PROCEDURE DETAILS: ? Procedure outcome: successful ?? Notable Events: no complications Michelle Waite APRN, CRNA, D.N.PJohanna A AKHIL ORDERABLES * Upper GI endoscopy-Gastroenterology Image Exam (09/27/2023 11:25 AM RECORDS ANALYST) Only the most recent of3 resultswithin the time period is included. 09/27/2023 11:2 2 AM RECORDS ANALYST Narrative IIMT - 09/27/2023 1:11 PM RECORDS ANALYST This order has been created and auto-finalized to support the import of images acquired without order. The clinical documentation to support these images can be found on the encounter that produced images. Provider Not In System IMG NON RAD IMAGI NG PROCEDURES IIMS NA * Upper GI Endoscopy (09/27/2023 11:22 AM RECORDS ANALYST) 09/27/2023 11:2 2 AM RECORDS ANALYST Impressions [facility] - 09/27/2023 1:04 PM RECORDS ANALYST Post-op Diagnoses: ? - Z-line regular, 40 cm from the incisors. ? - Normal stomach. ? 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 ? - An externally removable 20Fr PEG with a 10Fr Jejunal extension was ? successfully placed . ? - No specimens collected. Narrative [facility] - 09/27/2023 1:04 PM RECORDS ANALYST Gonda 2 GI Patient Name: Hola Lau Date of : 1950 Age: 72 Procedure Date: 09/27/2023 Procedure: ? Upper GI endoscopy Providers: ? Sung Yancey MD Referring Provider: ?Alessandro Gonzáles Pre-op Diagnoses: ?Stenosis of the duodenum, Place PEG-J because ? patient is unable to eat, Place PEG-J due to ? aspiration risk Recommendation: ? - Return [facility] for [facility] care. ? - Please follow the post-PEG recommendations including: Nutrition ? consult for formula and volume, advance food and medications per primary ? care provider, NPO x4 hrs then begin use. ? - See PEG RN note for further care recommendations ? - Repeat upper endoscopy for PEG-J exchange in 8-12 months. Findings: ? The Z-line was regular and was found 40 cm from the incisors. The ? previously placed NJ was removed. ? The stomach was normal. ? An acquired severe stenosis was found in the third portion of the ? duodenum and was non-traversed. ? The patient was placed in the supine position for PEG placement. The ? stomach was insufflated to appose gastric and abdominal moreno. A site ? was located in the body of the stomach with excellent transillumination ? and manual external pressure for placement. The abdominal wall was ? marked and prepped in a sterile manner. The area was anesthetized with 2 ? mL of 0.5% lidocaine. The trocar needle was introduced through the ? abdominal wall and into the stomach under direct endoscopic view. A ? snare was introduced through the endoscope and opened in the gastric ? lumen. The guide wire was passed through the trocar and into the open ? snare. The snare was closed around the guide wire. The endoscope and ? snare were removed, pulling the wire out through the mouth. The ? externally removable 20 Fr Avanos ARISTEO gastrostomy tube was lubricated. ? The G-tube was passed over the guide wire through the mouth, and into ? the stomach. The trocar needle was removed, and the gastrostomy tube was ? pulled out from the stomach through the skin. The external bumper ? attached to the gastrostomy tube. The feeding tube was then cut to an ? appropriate length. The final position of the gastrostomy tube was ? confirmed by relook endoscopy, and skin marking noted to be 4 cm at the ? external bumper. The final tension and compression of the abdominal wall ? by the PEG tube and external bumper were checked and revealed that the ? bumper was loose and lightly touching the skin. A 10 Fr Corpak jejunal ? extension tube was then passed through the gastric tube and advanced ? over a wire, which had been placed endoscopically to the jejunum past ? the obstruction. Appropriate position of the tip of the tube was ? confirmed by fluoroscopy. The feeding tube was capped, and the tube site ? was cleaned and dressed. The 10 Fr jejunal extension alvaro is 100cm at ? the level of the Y connector on the PEG tube. Procedural Details: ? The patient was seen, evaluated, history reviewed, airway and heart-lung ? exams were performed by licensed provider and were satisfactory for ? planned level of sedation care. ? The risks, benefits and alternatives for the procedure and sedation were ? discussed and informed consent was obtained. A procedural pause was ? conducted in the presence of assisting personnel to verify the correct ? patient identity and procedure to be performed. Throughout the ? procedure, the patient's blood pressure, pulse, and oxygen saturations ? were monitored continuously. The Gastroscope was introduced through the ? mouth, and advanced to the third part of duodenum. The upper GI ? endoscopy was accomplished without difficulty. The patient tolerated the ? procedure fairly well. Complications: ? No immediate complications. Estimated Blood Loss: ?Estimated blood loss: none. Attending Participation: I personally performed the entire procedure. Sung Yancey MD 09/27/2023 1:04:24 PM This report has been signed electronically. Number of Addenda: 0 Note Initiated On: 09/27/2023 11:22 AM Alessandro Gonázles M.D. GI PROCEDURE ORDERAB LES YANCI CABRERA NA * (ABNORMAL) Uric Acid (09/27/2023 5:48 AM RECORDS ANALYST) Only the most recent of3 resultswithin the time period is included. Uric Acid, S 3.1(L) 3.7 - 8.0 mg/dL 09/27/2023 8:02 AM RECORDS ANALYST DTL Blood (Blood, Venous) 09/27/2023 5:48 AM RECORDS ANALYST 09/27/2023 7:31 AM RECORDS ANALYST Melva Mckeon M.D. LAB BLOOD ADD-ON Performing Organization Address City/[facility] Co de Phone Number [facility] [address] [place] [address], [facility] [[email or web address]] [facility] [address] [place] [address] * DX Abdomen Portable Anterior Posterior 1 View (09/23/2023 12:25 PM RECORDS ANALYST) Only the most recent of2 resultswithin the time period is included. Anatomical Region Laterality Modality Abdomen, Abdominal RST LOS, Abdominal ARZ LOS, Abdominal FLA LOS N/A Digital Radiography Impressions 09/23/2023 12:30 PM RECORDS ANALYST NJ tube with tip likely in the expected location of the proximal jejunum. Narrative 09/23/2023 12:30 PM RECORDS ANALYST EXAM: ??DX ABDOMEN PORTABLE ANTERIOR POSTERIOR 1 VIEW Procedure Note Dereje Sepulveda D.O. - 09/23/2023 EXAM: DX ABDOMEN PORTABLE ANTERIOR POSTERIOR 1 VIEW IMPRESSION: NJ tube with tip likely in the expected location of the proximaljejunum. Melva Rodas M.D. IMG DIAGNOSTIC I MAGING PROCEDURES * MR Brain without and with IV Contrast (09/20/2023 6:24 PM RECORDS ANALYST) Anatomical Region Laterality Modality Head, Brain, Neuroradiology RST LOS, Neuroradiology ARZ LOS, Neuroradiology FLA LOS N/A Magnetic Resonance Impressions 09/20/2023 9:16 PM RECORDS ANALYST No evidence of acute infarction or other acute intracranial findings. Narrative 09/20/2023 9:16 PM RECORDS ANALYST EXAM: MR BRAIN WITHOUT AND WITH IV CONTRAST COMPARISON: CT head 09/19/2023 FINDINGS: No acute intracranial hemorrhage, mass, mass effect, extra-axial fluid collection, hydrocephalus, or evidence of acute or large vascular territory chronic infarction. 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 Moderate generalized parenchymal volume loss with ex vacuo dilation of the ventricular system. Moderate-advanced focal burden of predominantly periventricular and deep white matter T2 hyperintensities, likely reflecting chronic microvascular ischemic changes. Intracranial flow voids are intact. Chronic right cerebellar hemisphere microhemorrhage. No abnormal intracranial enhancement. Moderate scattered mucosal thickening throughout the paranasal sinuses with frothy secretions in the bilateral maxillary sinuses. Small bilateral mastoid effusions. Procedure Note Capo Duggan M.D., Ph.D. - 09/20/2023 EXAM: MR BRAIN WITHOUT AND WITH IV CONTRAST COMPARISON: CT head 09/19/2023 FINDINGS: No acute intracranial hemorrhage, mass, mass effect, extra-axialfluid collection, hydrocephalus, or evidence of acute or large vascularterritory chronic infarction. Chronic lacunar infarct in the leftthalamus. Moderate generalized parenchymal volume loss with ex vacuo dilation of the ventricular system.Moderate-advanced focal burden of predominantly periventricular and deepwhite matter T2 hyperintensities, likely reflecting chronic microvascularischemic changes. Intracranial flow voids are intact. Chronic right cerebellar hemispheremicrohemorrhage. No abnormal intracranial enhancement. Moderate scattered mucosal thickening throughout the paranasal sinuseswith frothy secretions in the bilateral maxillary sinuses. Small bilateralmastoid effusions. IMPRESSION: No evidence of acute infarction or other acute intracranial findings. Melva Rodas M.D. [facility] [place] [place] MRI PROCEDUR ES * LA ARTHCS ASP/INJ MJR JT WO US (09/20/2023 12:37 PM RECORDS ANALYST) Narrative Hola Romero M.D. - 09/20/2023 12:37 PM RECORDS ANALYST Jad Hanks M.D. ? 09/20/2023 12:42 PM Knee site- R knee joint : aspiration and diagnostic-therapeutic injection Performed by: Jad Hanks M.D. Authorized by: Jad Hanks M.D. ?? Care team members present 1. Jad Hanks M.D. PROCEDURE DETAILS Indications: Effusion of knee Procedure Location knee Knee site: R knee joint Site prep: patient was prepped and draped in usual sterile fashion ?? Patient position: supine Procedural approach: lateral Procedure performed: aspiration and diagnostic-therapeutic injection Needle gauge: 20 G, length: 1 1/2 in Ultrasound image guidance used to localize target, identify at risk structures, and dynamically used to direct therapy to the target. Image(s) not saved. Site was marked using indelible marker Probe: linear mid-frequency Needle approach: lateral to medial Ultrasound visualization: in-plane SPECIMENS Aspirate volume (mL): 60, appearance: serous Aspirate sent for: cell count, culture, gram stain, crystal analysis and polarized microscopy Procedural Medication The following medications were administered at the target site(s) Local anesthetic: 2 mL lidocaine 10 mg/mL (1 %) Corticosteroid: 80 mg triamcinolone acetonide 40 mg/mL CONSENT Consent obtained: written (Risks, benefits and alternatives were discussed and a written Informed Consent was obtained. Please see Informed Consent form for further details.) UNIVERSAL PROTOCOL All relevant documentation and testing were reviewed and available. All required blood products, implants, devices and or special equipment were made available as applicable. Pre-procedure verification was conducted and the correct site was marked if required. A fire risk assessment was done as applicable. The procedural time-out to verify correct patient, correct side/site, and procedure was conducted prior to performing the procedure and confirmed in a procedural pause. PRE-PROCEDURE DETAILS Procedure purpose: therapeutic and diagnostic Indications: Effusion of knee Appropriate hand hygiene, gown, cap, mask, protective eyewear, sterile gloves, skin preparation, sterile drape, and strict aseptic technique were utilized as applicable for the procedure. Site preparation: chlorhexidine SEDATION / ANESTHESIA Anesthesia method: local infiltration Local infiltrate type: lidocaine 1% plain POST-PROCEDURE DETAILS Procedure completed successfully: yes Complications: no apparent complications ?? Post-procedure instructions: avoid strenuous activity for 2 days, avoid submersion of procedure site for 48 hours and post-procedure activity instructions provided Discharge instructions: ice area as needed for comfort, pain management instructions, dressing care and follow-up with ordering provider Jad Hanks M.D. PROCEDURE/MINOR SURGICAL ORDERABLES * Bacteria Culture, Aerobe / Anaerobe + Susc (09/20/2023 12:34 PM RECORDS ANALYST) Bacteria Cult, Aerobe/Anaerob e+Susc No growth after 14 days of incubation. 10/04/2023 4:02 PM RECORDS ANALYST DT Synovial Fluid, Right Knee 09/20/2023 12:34 PM RECORDS ANALYST 09/20/2023 3:31 PM RECORDS ANALYST Comment:Specimen Source Site : Fluid Jad Hanks M.D. LAB MICROBIOLOGY - GENERAL ORDERABLES Performing Organization Address City/[facility]/ZIP Co de Phone Number [facility] [address] [place] [address], [facility] [address] [place] [address] * Crystal Identification, Body Fluid (09/20/2023 12:34 PM RECORDS ANALYST) Fluid Type Synovial Fluid, Right Knee 09/20/2023 2:13 PM RECORDS ANALYST [facility] Crystal ID None seen None seen 09/20/2023 2:13 PM RECORDS ANALYST [facility] Fluid (Synovial Fluid, Right Knee) 09/20/2023 12:34 PM RECORDS ANALYST 09/20/2023 1:00 PM RECORDS ANALYST Jad Hanks M.D. LAB BODY FLUIDS AND STOOLS ORDERABLES Performing Organization Address City/[facility]/ZIP Co de Phone Number [facility] [address] [place] [address], [facility] [address] [place] [address] * Cell Count and Differential, Body Fluid (09/20/2023 12:34 PM RECORDS ANALYST) Fluid Type Right knee synovial 09/20/2023 2:13 PM RECORDS ANALYST [facility] Gross Appearance Serous 09/20/19 24 2:13 PM RECORDS ANALYST [facility] Total Nucleated Cells 4188 /mcL 09/20/2023 2:13 PM RECORDS ANALYST [facility] Comment: ----REFERENCE VALUE---- Synovial: <150 /mcL Peritoneal: <500 /mcL Pleural: <500 /mcL Pericardial: <500 /mcL ----ADDITIONAL INFORMATION---- This test has been modified from the fiberglass auto body repairer's instructions. Its performance characteristics were determined by [facility] in a manner consistent with CLIA requirements. This test has not been cleared or approved by the U.S. Food and Drug Administration. Neutrophils 87 % 09/20/2023 2:13 PM RECORDS ANALYST [facility] Comment: ----REFERENCE VALUE---- Synovial: <25% Peritoneal: <25% Pleural: <25% Pericardial: <25% Monocytes/Macropha ges 13 Synovial <70% % 09/20/2023 2:13 PM RECORDS ANALYST [facility] Comment See Comment 09/20/2023 2:13 PM RECORDS ANALYST [facility] Reviewed by: Tech 09/20/2023 2:13 PM RECORDS ANALYST [facility] Fluid (Synovial Fluid, Right Knee) 09/20/2023 12:34 PM RECORDS ANALYST 09/20/2023 1:00 PM RECORDS ANALYST Jad Hanks M.D. LAB BODY FLUIDS AND STOOLS ORDERABLES Performing Organization Address City/State/[facility] Co de Phone Number [facility] [address] [place] [address] * Gram Stain (09/20/2023 12:34 PM RECORDS ANALYST) Gram Stain No organisms seen. White blood cells, Many 09/20/2023 8:14 PM RECORDS ANALYST DTL Fluid (Synovial Fluid, Right Knee) 09/20/2023 12:34 PM RECORDS ANALYST 09/20/2023 3:31 PM RECORDS ANALYST Comment:Specimen Source Site : Fluid Jad Hanks M.D. LAB MICROBIOLOGY - GENERAL ORDERABLES Performing Organization Address City/State/[facility] Co de Phone Number [facility] [address] [place], [place] [id number] [place] [address] [address] [place] [address] * (ABNORMAL) CRP (C-Reactive Protein) (09/20/2023 6:18 AM RECORDS ANALYST) C-Reactive Protein (CRP), S 95.7(H) <5.0 mg/L 09/20/2023 10:09 AM RECORDS ANALYST DTL Blood 09/20/2023 6:18 AM RECORDS ANALYST 09/20/2023 9:38 AM RECORDS ANALYST Ling Carrillo M.D. LAB BLOOD ADD-ON Performing Organization Address City/[facility] Co de Phone Number [facility] [address] [place], [place] [id number] [place] [address] [facility] [address] [place] [address] * CT Head without IV Contrast (09/19/2023 4:12 PM RECORDS ANALYST) Anatomical Region Laterality Modality Head, Neuroradiology RST LOS , Neuroradiology ARZ LOS, Neuroradiology FLA LOS N/A Computed Tomography, Compute d Tomography 09/19/2023 3:59 PM RECORDS ANALYST Impressions 09/19/2023 5:39 PM RECORDS ANALYST 1. 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 2. No acute intracranial hemorrhage. 3. No acute arterial abnormality in the head or neck. 4. Calcified atheromatous plaque at the carotid bulbs results in mild narrowing of the internal carotid artery origins, as detailed. Narrative 09/19/2023 5:39 PM RECORDS ANALYST EXAM: CT HEAD WITHOUT IV CONTRAST, CT HEAD NECK ANGIOGRAM WITH IV CONTRAST Including 3D image post-processing with or without AI assistance. COMPARISON: CT chest 08/05/2023; PET/CT 08/09/2023 and 06/28/2023. FINDINGS: CT HEAD: Focal hypoattenuation in the left lateral thalamus/posterior limb internal capsule (series 3/image 21). This was not convincingly present on PET/CT 06/28/2023, although may be below spatial resolution of the prior low-dose CT. This region not included in imaging on more recent PET/CT dated 08/09/2023. No intracranial hemorrhage. No mass effect or abnormal extra-axial fluid collection. Moderate generalized cerebral parenchymal volume loss. Moderate leukoaraiosis. The scattered paranasal sinus mucosal thickening with frothy secretions in the maxillary sinuses. Retroantral fat planes are preserved. Trace left mastoid effusion/mucosal thickening. CTA NECK: Conventional three vessel branch anatomy of the arch. Mild calcified plaque without significant stenosis of the great vessel origins. The common carotid arteries are patent without hemodynamically significant stenosis. Prominently calcified plaque of the carotid bulbs and proximal bilateral internal carotid arteries results in up to mild stenosis on the right (approximately 50% stenosis) and mild stenosis on the left (30-40% stenosis). No high-grade stenosis in the neck. Left dominant vertebral artery. The cervical vertebral arteries are patient without dissection. Incidentally noted persistent left trigeminal artery. CTA HEAD: Functional origin of the left FASHION CONSULTANT with diminutive left P1 segment. Diminutive right posterior communicating artery. The bilateral anterior, middle, and posterior cerebral arteries are patent without hemodynamically stenosis. The intracranial vertebral arteries and basilar artery are patent without stenosis. No visualized intracranial aneurysms. Although not optimized for this study, the major dural venous sinuses appear patent. OTHER: Scattered areas of reticulation and interlobular septal thickening in the visualized lung apices appears similar compared to CT chest 08/05/2023. Multilevel cervical spondylosis.. No destructive osseous lesions. Postoperative changes of thyroidectomy. Partially visualized nasoenteric tube and right chest wall Port-A-Cath. Findings were discussed with Dr. Sen ([id number]) at 5:26 PM on 09/19/2023. Procedure Note Jayjay Landaverde M.D. - 09/19/2023 EXAM: CT HEAD WITHOUT IV CONTRAST, CT HEAD NECK ANGIOGRAM WITH IVCONTRAST Including 3D image post-processing with or without AI assistance. COMPARISON: CT chest 08/05/2023; PET/CT 08/09/2023 and 06/28/2023. FINDINGS: CT HEAD: Focal hypoattenuation in the left lateral thalamus/posterior limb internalcapsule (series 3/image 21). This was not convincingly present on PET/CT06/28/2023, although may be below spatial resolution of the prior low-doseCT. This region not included in imaging on more recent PET/CT dated 08/09/2023. No intracranial hemorrhage. No mass effect or abnormal extra-axial fluidcollection. Moderate generalized cerebral parenchymal volume loss.Moderate leukoaraiosis. The scattered paranasal sinus mucosal thickeningwith frothy secretions in the maxillary sinuses. Retroantral fat planes are preserved. Trace left mastoideffusion/mucosal thickening. CTA NECK: Conventional three vessel branch anatomy of the arch. Mild calcifiedplaque without significant stenosis of the great vessel origins. The common carotid arteries are patent without hemodynamically significantstenosis. Prominently calcified plaque of the carotid bulbs and proximalbilateral internal carotid arteries results in up to mild stenosis on theright (approximately 50% stenosis) and mild stenosis on the left (30-40% stenosis). No high-gradestenosis in the neck. Left dominant vertebral artery. The cervical vertebral arteries arepatient without dissection. Incidentally noted persistent left trigeminalartery. CTA HEAD: Functional origin of the left FASHION CONSULTANT with diminutive left P1 segment.Diminutive right posterior communicating artery. The bilateral anterior,middle, and posterior cerebral arteries are patent without hemodynamicallystenosis. The intracranial vertebral arteries and basilar artery are patent without stenosis. Novisualized intracranial aneurysms. Although not optimized for this study, the major dural venous sinusesappear patent. OTHER: Scattered areas of reticulation and interlobular septal thickening in thevisualized lung apices appears similar compared to CT chest 08/05/2023. Multilevel cervical spondylosis.. No destructive osseous lesions. Postoperative changes of thyroidectomy. Partially visualized nasoenterictube and right chest wall Port-A-Cath. Findings were discussed with Dr. Sen ([id number]) at 5:26 PM on 09/19/2023. IMPRESSION: 1. 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 2. No acute intracranial hemorrhage. 3. No acute arterial abnormality in the head or neck. 4. Calcified atheromatous plaque at the carotid bulbs results in mildnarrowing of the internal carotid artery origins, as detailed. Eugenie Sen M.D. [facility] [place] [place] CT PROCEDURES * CT Head Neck Angiogram with IV Contrast (09/19/2023 4:12 PM RECORDS ANALYST) Anatomical Region Laterality Modality Head and Neck, Neuroradiolog y RST LOS, Neuroradiology ARAr LOS, Neuroradiology FLCrow LOS N/A Computed Tomography, Compute d Tomography 09/19/2023 4:09 PM RECORDS ANALYST Impressions 09/19/2023 5:39 PM RECORDS ANALYST 1. 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 2. No acute intracranial hemorrhage. 3. No acute arterial abnormality in the head or neck. 4. Calcified atheromatous plaque at the carotid bulbs results in mild narrowing of the internal carotid artery origins, as detailed. Narrative 09/19/2023 5:39 PM RECORDS ANALYST EXAM: CT HEAD WITHOUT IV CONTRAST, CT HEAD NECK ANGIOGRAM WITH IV CONTRAST Including 3D image post-processing with or without AI assistance. COMPARISON: CT chest 08/05/2023; PET/CT 08/09/2023 and 06/28/2023. FINDINGS: CT HEAD: Focal hypoattenuation in the left lateral thalamus/posterior limb internal capsule (series 3/image 21). This was not convincingly present on PET/CT 06/28/2023, although may be below spatial resolution of the prior low-dose CT. This region not included in imaging on more recent PET/CT dated 08/09/2023. No intracranial hemorrhage. No mass effect or abnormal extra-axial fluid collection. Moderate generalized cerebral parenchymal volume loss. Moderate leukoaraiosis. The scattered paranasal sinus mucosal thickening with frothy secretions in the maxillary sinuses. Retroantral fat planes are preserved. Trace left mastoid effusion/mucosal thickening. CTA NECK: Conventional three vessel branch anatomy of the arch. Mild calcified plaque without significant stenosis of the great vessel origins. The common carotid arteries are patent without hemodynamically significant stenosis. Prominently calcified plaque of the carotid bulbs and proximal bilateral internal carotid arteries results in up to mild stenosis on the right (approximately 50% stenosis) and mild stenosis on the left (30-40% stenosis). No high-grade stenosis in the neck. Left dominant vertebral artery. The cervical vertebral arteries are patient without dissection. Incidentally noted persistent left trigeminal artery. CTA HEAD: Functional origin of the left FASHION CONSULTANT with diminutive left P1 segment. Diminutive right posterior communicating artery. The bilateral anterior, middle, and posterior cerebral arteries are patent without hemodynamically stenosis. The intracranial vertebral arteries and basilar artery are patent without stenosis. No visualized intracranial aneurysms. Although not optimized for this study, the major dural venous sinuses appear patent. OTHER: Scattered areas of reticulation and interlobular septal thickening in the visualized lung apices appears similar compared to CT chest 08/05/2023. Multilevel cervical spondylosis.. No destructive osseous lesions. Postoperative changes of thyroidectomy. Partially visualized nasoenteric tube and right chest wall Port-A-Cath. Findings were discussed with Dr. Sen ([id number]) at 5:26 PM on 09/19/2023. Procedure Note Jayjay Landaverde M.D. - 09/19/2023 EXAM: CT HEAD WITHOUT IV CONTRAST, CT HEAD NECK ANGIOGRAM WITH IVCONTRAST Including 3D image post-processing with or without AI assistance. COMPARISON: CT chest 08/05/2023; PET/CT 08/09/2023 and 06/28/2023. FINDINGS: CT HEAD: Focal hypoattenuation in the left lateral thalamus/posterior limb internalcapsule (series 3/image 21). This was not convincingly present on PET/CT06/28/2023, although may be below spatial resolution of the prior low-doseCT. This region not included in imaging on more recent PET/CT dated 08/09/2023. No intracranial hemorrhage. No mass effect or abnormal extra-axial fluidcollection. Moderate generalized cerebral parenchymal volume loss.Moderate leukoaraiosis. The scattered paranasal sinus mucosal thickeningwith frothy secretions in the maxillary sinuses. Retroantral fat planes are preserved. Trace left mastoideffusion/mucosal thickening. CTA NECK: Conventional three vessel branch anatomy of the arch. Mild calcifiedplaque without significant stenosis of the great vessel origins. The common carotid arteries are patent without hemodynamically significantstenosis. Prominently calcified plaque of the carotid bulbs and proximalbilateral internal carotid arteries results in up to mild stenosis on theright (approximately 50% stenosis) and mild stenosis on the left (30-40% stenosis). No high-gradestenosis in the neck. Left dominant vertebral artery. The cervical vertebral arteries arepatient without dissection. Incidentally noted persistent left trigeminalartery. CTA HEAD: Functional origin of the left FASHION CONSULTANT with diminutive left P1 segment.Diminutive right posterior communicating artery. The bilateral anterior,middle, and posterior cerebral arteries are patent without hemodynamicallystenosis. The intracranial vertebral arteries and basilar artery are patent without stenosis. Novisualized intracranial aneurysms. Although not optimized for this study, the major dural venous sinusesappear patent. OTHER: Scattered areas of reticulation and interlobular septal thickening in thevisualized lung apices appears similar compared to CT chest 08/05/2023. Multilevel cervical spondylosis.. No destructive osseous lesions. Postoperative changes of thyroidectomy. Partially visualized nasoenterictube and right chest wall Port-A-Cath. Findings were discussed with Dr. Sen ([id number]) at 5:26 PM on 09/19/2023. IMPRESSION: 1. 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 2. No acute intracranial hemorrhage. 3. No acute arterial abnormality in the head or neck. 4. Calcified atheromatous plaque at the carotid bulbs results in mildnarrowing of the internal carotid artery origins, as detailed. Eugenie Sen M.D. IMG CT PROCEDURES * Surgical Pathology (09/17/2023 3:21 PM RECORDS ANALYST) 09/18/2023 11:36 AM RECORDS ANALYST DTL Report electronically signed by Heydi Hurley M.D. I verify that I have examined all relevant slides/materials for the specimen(s) and rendered or confirmed the diagnosis. 09/18/2023 11:36 AM RECORDS ANALYST DTL Gross Description Received in formalin labeled with the patient's name, medical record number, and duodenum-duodenum , third part duodenum are sixpale saenz-saenz irregular soft tissues, ranging from 0.1-0.4 cm in greatest dimension. Due to the scant nature of the tissue fragments, some orall may not survive processing. ??Specimens are submitted en toto in cassette A1. ??Grossed by [facility]. 09/18/2023 11:36 AM RECORDS ANALYST DTL Interpretation FINAL DIAGNOSIS A. Duodenum, 3rd part, endoscopic biopsy: ??Duodenal ulcer with fibrinopurulent exudates. ??Minute strips of duodenal mucosa with focal gastric foveolar metaplasia. ??No evidence of dysplasia or neoplasm. Digital imaging was used in the diagnostic assessment of this case . 09/18/2023 11:36 AM RECORDS ANALYST DTL Biopsy (Duodenum) 09/17/2023 3:21 PM RECORDS ANALYST Devang Perez LAB STEPHAN G PATH ORDERABLES [facility] [address] [place] [address], [facility] [[email or web address]] DTL [address] [place] [address] * LDA ANE ENDOTRACHEAL AIRWAY (09/17/2023 3:09 PM RECORDS ANALYST) Narrative Aleks Barrios APRN, CRNA - 09/17/2023 3:09 PM RECORDS ANALYST Aleks Barrios APRN, CRNA ? 09/17/2023 ??3:15 PM Airway Date/Time: 09/17/2023 3:09 PM Performed by: Aleks Barrios APRN, CRNA Authorized by: Aleks Barrios APRN, CRNA ?? Patient location during procedure: OR / Procedure Area PROCEDURE DETAILS: Mask difficulty assessment: not attempted Final airway type: video laryngoscope Laryngeal Manipulation: no ?? Final best view of glottic structures - Cormack/Lehane Score: grade 1 ETT location: oral VL device: glide scope [place] scope blade size: 4 Tube size: 7 ETT distance at teeth/gum: 22 Oral tube type: standard ETT Cuffed: yes Number of attempt to successful placement: 1 Airway confirmation: bilateral breath sounds, positive ETCO2 and bilateral chest rise Other previous techniques attempted: none PRE PROCEDURE DETAILS: Pre evaluation for airway management: procedure Urgency: elective Preop assessment of probable difficulty: no difficulty anticipated Preoxygenation: bag valve mask SEDATION / ANESTHESIA Anesthesia method: anesthesia POST PROCEDURE DETAILS: ? Procedure outcome: successful ?? Aleks Barrios APRN, CRNA ANESTHESIA ORDER ANABELL * Upper GI Endoscopy (09/17/2023 2:36 PM RECORDS ANALYST) 09/17/2023 2:36 PM RECORDS ANALYST [facility] 09/17/2023 3:44 PM RECORDS ANALYST Post-op Diagnoses: ? - Normal esophagus. ? - Normal stomach. ? - Acquired duodenal stenosis. Biopsied. ? - Feeding tube placement was successfully performed. Narrative [facility] - 09/17/2023 3:44 PM RECORDS ANALYST Gonda 2 GI Patient Name: Hola Lau Date of : 1950 Age: 72 Procedure Date: 09/17/2023 Procedure: ? Upper GI endoscopy Providers: ? Devang Lagos MD Referring Provider: ?Clare Cuevas Pre-op Diagnoses: ?Abnormal CT of the GI tract Recommendation: ? - Await pathology results. ? - [facility] patient [facility]. Findings: ? The esophagus was normal. ? The stomach was normal. ? An acquired malignant-appearing, intrinsic severe stenosis was found in ? the third portion of the duodenum and was non-traversed. Biopsies were ? taken with a cold forceps for histology. A guide wire was inserted into ? the jejunum and the endoscope was removed. A 16 Fr nasojejunal tube was ? advanced over the guide wire into the jejunum. Placement was confirmed ? by fluoroscopy. Procedural Details: ? The patient was seen, evaluated, history reviewed, airway and heart-lung ? exams were performed by licensed provider and were satisfactory for ? planned level of sedation care. ? The risks, benefits and alternatives for the procedure and sedation were ? discussed and informed consent was obtained. A procedural pause was ? conducted in the presence of assisting personnel to verify the correct ? patient identity and procedure to be performed. Throughout the ? procedure, the patient's blood pressure, pulse, and oxygen saturations ? were monitored continuously. The Gastroscope was introduced through the ? mouth, and advanced to the third part of duodenum. The upper GI ? endoscopy was accomplished without difficulty. Complications: ? No immediate complications. Estimated Blood Loss: ?Estimated blood loss was minimal. Attending Participation: I personally performed the entire procedure. Devang Lagos MD 09/17/2023 3:44:07 PM This report has been signed electronically. Number of Addenda: 0 Note Initiated On: 09/17/2023 2:36 PM Clare Cuevas M.D. GI PROCEDURE ORDERAB LES Performing Organization Address [facility] de Phone Number [facility] NA * EBV DNA Detect/Quant (09/16/2023 5:14 AM RECORDS ANALYST) Pathologist [facility] EBV DNA Detect/Quant, P Undetected Undetected IU/mL 09/17/2023 1:06 PM RECORDS ANALYST [facility] Comment: Result in log IU/mL is Undetected. ----ADDITIONAL INFORMATION---- The quantification range of this assay is 35 to 100,000,000 IU/mL (1.54 log to 8.00 log IU/mL). Testing was performed using the brady EBV test ([employer] with the brady 6800 System. Blood (Blood, Venous) 09/16/2023 5:14 AM RECORDS ANALYST 09/16/2023 8:19 AM RECORDS ANALYST Clare Cuevas M.D. LAB MICROBIOLOGY - B LOOD ORDERABLES Performing Organization Address [facility] de Phone Number [facility] [address] [place] [address] [facility] [address] [place] [address] * CMV DNA Detect / Quant, Plasma (09/16/2023 5:14 AM RECORDS ANALYST) Pathologist [facility] CMV DNA Detect/Quant, P Undetected Undetected IU/mL 09/17/2023 7:25 AM RECORDS ANALYST [facility] Comment: Result in log IU/mL is Undetected. ----ADDITIONAL INFORMATION---- The quantification range of this assay is 35 to 10,000,000 IU/mL (1.54 log to 7.00 log IU/mL). Testing was performed using the brady CMV test ([employer] with the brady 6800 System. Blood (Blood, Venous) 09/16/2023 5:14 AM RECORDS ANALYST 09/16/2023 8:19 AM RECORDS ANALYST Clare Cuevas M.D. LAB MICROBIOLOGY - B LOOD ORDERABLES Performing Organization Address [facility] Co de Phone Number [facility] [address] [place] [address] [facility] [address] [place] [place] [address] * Foot-Transplantation Surg Image Exam (09/15/2023 8:55 AM RECORDS ANALYST) 09/15/2023 8:53 AM RECORDS ANALYST Narrative [facility] - 09/15/2023 8:55 AM RECORDS ANALYST This order has been created and auto-finalized to support the import of images acquired without order. The clinical documentation to support these images can be found on the encounter that produced images. Provider Not In System IMG NON RAD IMAGI NG PROCEDURES Performing Organization Address [facility] de Phone Number [facility] NA * LD (Lactate Dehydrogenase) (09/15/2023 5:05 AM RECORDS ANALYST) Only the most recent of3 resultswithin the time period is included. [facility] LD 195 122 - 222 U/L 09/15/2023 6:02 AM RECORDS ANALYST DTL Blood (Blood, Venous) 09/15/2023 5:05 AM RECORDS ANALYST 09/15/2023 5:38 AM RECORDS ANALYST Michelle Ac M.D. LAB BLOOD NON ADD-O N Performing Organization Address [facility] Co de Phone Number [facility] [address] [place] [address], [place] [facility] [address] [place] [address] * (ABNORMAL) Haptoglobin (09/15/2023 5:02 AM RECORDS ANALYST) Only the most recent of2 resultswithin the time period is included. [facility] Haptoglobin, S 251(H) 30 - 200 mg/dL 09/16/2023 1:58 PM RECORDS ANALYST [facility] Blood (Blood, Venous) 09/15/2023 5:02 AM RECORDS ANALYST 09/16/2023 10:21 AM RECORDS ANALYST Michelle Ac M.D. LAB BLOOD ADD-ON [facility] [address] [place] [address] [facility] [address] [place] [address] * Influenza A, B, RSV, PCR, Rapid (09/14/2023 8:28 PM RECORDS ANALYST) Pathologist [facility] Influenza A, PCR, Rapid, V Negative Negative 09/14/2023 9:00 PM RECORDS ANALYST [facility] Influenza B, PCR, Rapid, V Negative Negative 09/14/2023 9:00 PM RECORDS ANALYST [facility] Resp Synctial Virus, PCR, Rapid Negative Negative 09/14/2023 9:00 PM [facility]DS [facility]NALYST [facility] Spec[facility] Source Swab, Nasopharynx 09/14/2023 8:59 PM RECORDS ANALYST [facility] Swab (Nasopharynx) 09/14/2023 8:28 PM RECORDS ANALYST 09/14/2023 8:32 PM RECORDS ANALYST Aris Mina P.A.-C. LAB MICROBIOLOGY - GENERAL ORDERABLES Performing Organization Address City/[facility]/ZIP Co de Phone Number [facility] [address] [place], [place] [id number] [place] [address] [address] [place] [address] * (ABNORMAL) Dipstick, Urine (09/14/2023 8:28 PM RECORDS ANALYST) Pathologist [facility] Hemoglobin, QL, U Negative Negative 09/14/2023 9:05 PM RECORDS ANALYST DTL Leukocyte Esterase, U Negative Negative 09/14/2023 9:05 PM RECORDS ANALYST DTL Nitrite, U Negative Negative 09/14/2023 9:05 PM RECORDS ANALYST DTL Ketone, U Negative Negative mg/dL 09/14/2023 9:05 PM RECORDS ANALYST DTL Glucose, U >=1000(A) Negative mg/dL 09/14/2023 9:05 PM RECORDS ANALYST DTL Urine 09/14/2023 8:28 PM RECORDS ANALYST 09/14/2023 8:56 PM RECORDS ANALYST Aris Mina P.A.-C. LAB URINE ORDERA BLES Performing Organization Address [facility] Co de Phone Number [facility] [address] [place] [address], [facility] [[email or web address]] DTL [facility] [address] [place] [address] * SARS Coronavirus 2, PCR Rapid Symptomatic (09/14/2023 8:28 PM RECORDS ANALYST) SARS CoV-2, PCR, Rapid, V Undetected Undetected 09/14/2023 8:59 PM RECORDS ANALYST [facility] Comment: ----ADDITIONAL INFORMATION---- This RT-PCR test was performed using the Jesus SARS-CoV-2 and Influenza A/B Reagent assay from [employer], which has received Emergency Use Authorization(EUA) by the U.S. Food and Drug Administration. Fact sheets for this Emergency Use Authorization (EUA) assay can be found at the following links: For Healthcare Providers: https://www.fda.gov/media/484845/download For Patients: https://www.fda.gov/media/998429/download SARS Coronavirus 2, Rapid, Source Swab, Nasopharynx 09/14/2023 8:32 PM RECORDS ANALYST [facility] Swab (Nasopharynx) 09/14/2023 8:28 PM RECORDS ANALYST 09/14/2023 8:32 PM RECORDS ANALYST Aris Mina P.A.-C. LAB MICROBIOLOGY - GENERAL ORDERABLES Performing Organization Address [facility]/ZIP Co de Phone Number [facility] [address] [place] [address], [facility] [[email or web address]] STMA [facility] [address] [place] [address] * Microscopic Manual (09/14/2023 8:28 PM RECORDS ANALYST) Microscopy Normal 09/14/2023 9:21 PM RECORDS ANALYST DTL RBC <3 <3 /hpf 09/14/2023 9:21 PM RECORDS ANALYST DTL WBC 1-3 /hpf 09/14/2023 9:21 PM RECORDS ANALYST DTL Comment: ----REFERENCE VALUE---- <4 ??(Males) <11 (Females) Casts, Hyaline Occas /lpf 09/14/2023 9:21 PM RECORDS ANALYST DTL Squamous Epithelial Cells, U 1-3 /hpf 09/14/2023 9:21 PM RECORDS ANALYST DTL Urine 09/14/2023 8:28 PM RECORDS ANALYST 09/14/2023 9:05 PM RECORDS ANALYST Aris Mina P.A.-C. LAB URINE ORDERA BLES Performing Organization Address City/[facility]/ZIP Co de Phone Number [facility] [address] [place] [address] * Bacterial Culture, Aerobic + Susceptibility, Urine (09/14/2023 8:28 PM RECORDS ANALYST) Urine Culture No growth after 1 day of incubation. 09/16/2023 7:12 AM RECORDS ANALYST DTL Urine (Urine, Midstream) 09/14/2023 8:28 PM RECORDS ANALYST 09/14/2023 9:05 PM RECORDS ANALYST Comment:Specimen Source Site : Urine Aris Mina P.A.-C. LAB MICROBIOLOGY - GENERAL ORDERABLES [facility] [address] [place] [address] * pH, Urine (09/14/2023 8:28 PM RECORDS ANALYST) pH, U 7.1 4.5 - 8.0 09/14/2023 9:1 6 PM RECORDS ANALYST DTL Urine 09/14/2023 8:28 PM RECORDS ANALYST 09/14/2023 8:56 PM RECORDS ANALYST Aris Mina P.A.-C. LAB URINE ORDERA BLES Performing Organization Address City/[facility]/ZIP Co de Phone Number [facility] [address] [place] [address] * Osmolality, Urine (09/14/2023 8:28 PM RECORDS ANALYST) Osmolality, U 610 150 - 1150 mOsm/kg 09/14/2023 9:16 PM RECORDS ANALYST DTL Urine 09/14/2023 8:28 PM RECORDS ANALYST 09/14/2023 8:56 PM RECORDS ANALYST Aris Mina P.A.-C. LAB URINE ORDERA BLES Performing Organization Address [facility] Co de Phone Number [facility] [address] [place] [address] * (ABNORMAL) Urinalysis with Microscopic: Urine, Midstream (09/14/2023 8:28 PM RECORDS ANALYST) Source Urine, Urine, Midstream 09/14/2023 8:56 PM RECORDS ANALYST DTL Color, U Yellow 09/14/2023 8:56 PM RECORDS ANALYST DTL Clarity, U Clear 09/14/2023 8:56 PM RECORDS ANALYST DTL Protein, U 148(H) <26 mg/dL 09/14/2023 9:37 PM RECORDS ANALYST DTL Protein/Osmol ality 2.43(H) <0.42 ratio 09/14/2023 9:37 PM RECORDS ANALYST DTL Predicted 24 HR Protein, U 2191(H) <229 mg/24 h 09/14/2023 9:37 PM RECORDS ANALYST DTL Predicted Range 696-6905 mg/24 h 09/14/2023 9:37 PM RECORDS ANALYST DTL Comment Micro done on <10 mL 09/14/2023 9:17 PM RECORDS ANALYST DTL Urine (Urine, Midstream) 09/14/2023 8:28 PM RECORDS ANALYST 09/14/2023 8:56 PM RECORDS ANALYST Aris Mina P.A.-C. LAB URINE ORDERA BLES Performing Organization Address [facility] Co de Phone Number [facility] [address] [place] [address], [facility] [[email or web address]] DTL [facility] [address] [place] [address] * (ABNORMAL) SPSMA Result (09/14/2023 8:14 PM RECORDS ANALYST) Only the most recent of2 resultswithin the time period is included. Pathologist [facility] Neutrophilic Segs and Bands 33(L) 50 - 75 % 09/15/2023 3:06 AM RECORDS ANALYST [facility] Lymphocytes 32 18 - 42 % 09/15/2023 3:06 AM RECORDS ANALYST [facility] Monocytes 24(H) 2 - 11 % 09/15/2023 3:06 AM RECORDS ANALYST [facility] Eosinophils 8(H) 1 - 3 % 09/15/2023 3:06 AM RECORDS ANALYST [facility] Basophils 3(H) 0 - 2 % 09/15/2023 3:06 AM RECORDS ANALYST [facility] Interpretation See Comment 3:06 AM RECORDS ANALYST [facility] Comment:Polychromasia is pre sent. No schistocytes are seen. No platelet clumping. Reviewed by: Kaylen 09/15/2023 3:06 AM RECORDS ANALYST [facility] Blood (Blood, Venous) 09/14/2023 8:14 PM RECORDS ANALYST 09/15/2023 12:42 AM RECORDS ANALYST Michelle Ac M.D. LAB BLOOD ADD-ON Performing Organization Address City/[facility]/ZIP Co de Phone Number [facility] [address] [place] [address], [facility] [[email or web address]] DHPM [facility] [address] [place] [address] * Bacteria / Joel Culture, Blood # 2 (09/14/2023 8:14 PM RECORDS ANALYST) Only the most recent of4 resultswithin the time period is included. Bacteria/Torrie da Culture, Blood No growth after 5 days of incubation. 09/19/2023 9:02 PM RECORDS ANALYST DTL Blood (Blood, Peripheral Draw) 09/14/2023 8:14 PM RECORDS ANALYST 09/14/2023 8:30 PM RECORDS ANALYST Comment:Specimen Source Site : Blood Aris Mina P.A.-C. LAB MICROBIOLOGY - GENERAL ORDERABLES Performing Organization Address City/[facility]/ZIP Co de Phone Number [facility] [address] [place], [place] [phone] [place] [address] [address] [place] [address] * (ABNORMAL) Reticulocytes (09/14/2023 7:57 PM RECORDS ANALYST) Pathologist [facility] Reticulocytes, B 2.77(H) 0.60 - 2.71 % 09/15/2023 1:24 AM RECORDS ANALYST DTL Absolute Reticulocyte 78.4 30.4 - 110.9 x10(9)/L 09/15/2023 1:24 AM RECORDS ANALYST DTL Blood (Blood, Venous) 09/14/2023 7:57 PM RECORDS ANALYST 09/15/2023 1:13 AM RECORDS ANALYST Michelle Ac M.D. LAB BLOOD ADD-ON Performing Organization Address [facility] Co de Phone Number [facility] [address] [place], [place] [phone] [place] [address] [address] [place] [address] * ABO/Rh Problem, RBC (09/04/2023 3:16 PM RECORDS ANALYST) Pathologist [facility] ABORh A Pos Not applicable 09/04/2023 5:08 PM RECORDS ANALYST DTL Blood 09/04/2023 3:16 PM RECORDS ANALYST 09/04/2023 3:39 PM RECORDS ANALYST Bev Gifford APRN C.N.P., M.S.N. L AB BLOOD BANK TEST ORDERABLES Performing Organization Address City/[facility]/ZIP Co de Phone Number [facility] [address] [place], [place] [phone] [place] [address] [address] [place] [address] * Upper GI Endoscopy (08/13/2023 2:06 PM RECORDS ANALYST) 08/13/2023 2:06 PM RECORDS ANALYST Impressions [facility] - 08/13/2023 3:03 PM RECORDS ANALYST Post-op Diagnoses: ? - Normal esophagus. ? - Normal stomach. ? - Status post chemotherapy. ? 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 estimated inner diameter of 10 mm. Not traversed primarily due to limted ? scope length. Retained food. ? - Duodenal ulceration in the third portion of the duodenum. ? - No active bleeding or high risk stigmata noted where ulcer can be ? visualized, as partially obscured by retained food. ? - No specimens collected. Narrative [facility] - 08/13/2023 3:03 PM RECORDS ANALYST Gonda 2 GI Patient Name: Hola Lau Date of : 1950 Age: 72 Procedure Date: 08/13/2023 Procedure: ? Upper GI endoscopy Providers: ? Beata Fajardo MD Referring Provider: ?Roseann Sheldon Pre-op Diagnoses: ?Personal history of malignant neoplasm Recommendation: ? - The patient will be observed post-procedure, until all discharge ? criteria are met. ? - Return to referring physician. ? - For future endoscopy, keep patient on a clear liquid diet for 24 hours ? pre-procedure. Findings: ? The esophagus was normal. ? The stomach was normal. ? Stenosis was found in the third portion of the duodenum. ? Ulcer was found in the third portion of the duodenum. Procedural Details: ? The patient was seen, evaluated, history reviewed, airway and heart-lung ? exams were performed by licensed provider and were satisfactory for ? planned level of sedation care. ? The risks, benefits and alternatives for the procedure and sedation were ? discussed and informed consent was obtained. A procedural pause was ? conducted in the presence of assisting personnel to verify the correct ? patient identity and procedure to be performed. Throughout the ? procedure, the patient's blood pressure, pulse, and oxygen saturations ? were monitored continuously. The Gastroscope was introduced through the ? mouth, and advanced to the third part of duodenum. The upper GI ? endoscopy was accomplished without difficulty. The patient tolerated the ? procedure well. Complications: ? No immediate complications. Estimated Blood Loss: ?Estimated blood loss: none. Attending Participation: I personally performed the entire procedure. Beata Fajardo MD 08/13/2023 3:02:49 PM This report has been signed electronically. Number of Addenda: 0 Note Initiated On: 08/13/2023 2:06 PM Roseann Burgos, B.Ch., B.A.O. GI LA OCEDURE ORDERABLES [facility] NA * PET CT Skull to Thigh FDG (08/09/2023 1:20 PM RECORDS ANALYST) Anatomical Region Laterality Modality Body, Nuclear Medicine PET R ST LOS, PET ARZ LOS, Nuclear Medicine PET FLA LOS, Nuclear Medicine N/A Positron Emission Tomography (PET), Positron Emission Tomography (PET) 08/09/2023 2:43 PM RECORDS ANALYST Impressions 08/09/2023 3:08 PM RECORDS ANALYST 1. Further decrease in FDG uptake involving/adjacent to the 3rd portion of the duodenum. Deauville response criteria= 3 2. FDG uptake of the colon and gallbladder may be related to inflammation. 3. Slight interval increase in small bilateral pleural effusions. Narrative 08/09/2023 3:08 PM RECORDS ANALYST EXAM: ??PET CT SKULL TO THIGH FDG Serum glucose at time of F-18 FDG injection was 69 mg/dL. Patient followed standard dietary/fasting requirements for this exam. RADIOPHARMACEUTICAL/MEDS: Route: intravenous fludeoxyglucose F 18 injection LONGTERM (FDG F-18),10.12 millicurie TECHNIQUE: ??F-18 FDG PET/CT scan was performed from the orbits through the thighs with low dose, non-contrast, free-breathing CT images for attenuation correction and anatomic localization (AC/AL), with imaging beginning at approximately 60 minutes after radiotracer injection. COMPARISON: ??Multiple prior PET/CT examinations, most recently 06/28/2023. CT chest, abdomen and pelvis 08/05/2023. 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 Interval chemotherapy. Subsequent treatment strategy. The patient reports no recent vaccinations. FINDINGS: ??Further decrease in size of FDG uptake in the proximal portion of the 3rd duodenum with an SUV max of 2.5 (image 174, previous SUV max of 4.5. Adjacent moderate FDG avid focus superior to the 3rd portion of the duodenum is also improved now with an SUV max of 2.2, previous SUV max of 4.7. No new suspicious FDG avid lymphadenopathy. Diffuse increased bone marrow uptake and borderline splenic uptake is likely treatment related. Intense FDG uptake of the transverse colon is slightly more prominent than prior exam. Similar intense FDG uptake of the rectosigmoid colon. Again demonstrated is FDG uptake of the gallbladder. Decreasing FDG uptake of the stomach which may be reactive. New linear muscular uptake of the right rotator cuff musculature may be inflammatory. Significant incidental CT findings: Small bilateral pleural effusions have increased in size since 08/05/2023. Right IJ Port-A-Cath with tip at the SVC/RA junction. Scattered vascular calcifications including the coronary arteries. MVR. Fibrotic changes of the lung bases. Thyroidectomy. Scattered degenerative osseous changes including spine and hips. Postoperative changes left shoulder and lumbar spine. Procedure Note Kimberley Hernadez M.D. - 08/09/2023 EXAM: PET CT SKULL TO THIGH FDG Serum glucose at time of F-18 FDG injection was 69 mg/dL. Patient followedstandard dietary/fasting requirements for this exam. RADIOPHARMACEUTICAL/MEDS: Route: intravenous fludeoxyglucose F 18 injection LONGTERM (FDG F-18),10.12 millicurie TECHNIQUE: F-18 FDG PET/CT scan was performed from the orbits through thethighs with low dose, non-contrast, free-breathing CT images forattenuation correction and anatomic localization (AC/AL), with imagingbeginning at approximately 60 minutes after radiotracer injection. COMPARISON: Multiple prior PET/CT examinations, most recently 06/28/2023.CT chest, abdomen and pelvis 08/05/2023. INDICATION: Diffuse large B-cell lymphoma initially involving theduodenum. Interval chemotherapy. Subsequent treatment strategy. The patient reports no recent vaccinations. FINDINGS: Further decrease in size of FDG uptake in the proximal portionof the 3rd duodenum with an SUV max of 2.5 (image 174, previous SUV max of4.5. Adjacent moderate FDG avid focus superior to the 3rd portion of theduodenum is also improved now with an SUV max of 2.2, previous SUV max of 4.7. No new suspicious FDG avid lymphadenopathy. Diffuse increased bone marrow uptake and borderline splenic uptake islikely treatment related. Intense FDG uptake of the transverse colon is slightly more prominent thanprior exam. Similar intense FDG uptake of the rectosigmoid colon. Againdemonstrated is FDG uptake of the gallbladder. Decreasing FDG uptake of the stomach which may be reactive. New linear muscular uptake of the right rotator cuff musculature may beinflammatory. Significant incidental CT findings: Small bilateral pleural effusions haveincreased in size since 08/05/2023. Right IJ Port-A-Cath with tip at theSVC/RA junction. Scattered vascular calcifications including the coronaryarteries. MVR. Fibrotic changes of the lung bases. Thyroidectomy. Scattered degenerative osseous changesincluding spine and hips. Postoperative changes left shoulder and lumbarspine. IMPRESSION: 1. Further decrease in FDG uptake involving/adjacent to the 3rd portion ofthe duodenum. Deauville response criteria= 3 2. FDG uptake of the colon and gallbladder may be related toinflammation. 3. Slight interval increase in small bilateral pleural effusions. Bety LOPEZ NM PROCEDURES * (ABNORMAL) Reticulocyte Profile (08/05/2023 7:35 PM RECORDS ANALYST) Reticulocytes, B 1.57 0.60 - 2.71 % 08/05/2023 8:09 PM RECORDS ANALYST DTL Absolute Reticulocyte 38.3 30.4 - 110.9 x10(9)/L 08/05/2023 8:09 PM RECORDS ANALYST DTL Immature Reticulocyte Fraction 33.8(H) 2.3 - 13.4 % 08/05/2023 8:09 PM RECORDS ANALYST DTL Reticulocyte Hemoglobin 32.1 30.0 - 37.6 pg 08/05/2023 8:09 PM RECORDS ANALYST DTL Erythrocytes 2.44(L) 4.35 - 5.65 x10(12)/L 08/05/2023 8:09 PM RECORDS ANALYST DTL Blood (Blood, Venous) 08/05/2023 7:35 PM RECORDS ANALYST 08/05/2023 8:02 PM RECORDS ANALYST Lenny Peters M.D. LAB BLOOD ADD-ON Performing Organization Address City/[facility]/ZIP Co de Phone Number [facility] [address] [place], [place] [phone] [place] [address] [facility] [address] [place] [address] * (ABNORMAL) Iron and Total Iron-Binding Capacity (08/05/2023 7:35 PM RECORDS ANALYST) Iron 38(L) 50 - 150 mcg/dL 08/05/2023 9:44 PM RECORDS ANALYST DTL Total Iron Binding Capacity 124(L) 250 - 400 mcg/dL 08/05/2023 9:44 PM RECORDS ANALYST DTL Percent Saturation 31 14 - 50 % 08/05/2023 9:44 PM RECORDS ANALYST DTL Blood (Blood, Venous) 08/05/2023 7:35 PM RECORDS ANALYST 08/05/2023 8:13 PM RECORDS ANALYST Lenny Peters M.D. LAB BLOOD ADD-ON [facility] [address] [place] [address], [facility] [[email or web address]] [facility] [address] [place] [address] * (ABNORMAL) Ferritin (08/05/2023 7:35 PM RECORDS ANALYST) Ferritin, S 597(H) 31 - 409 mcg/L 08/05/2023 9:44 PM RECORDS ANALYST DTL Blood (Blood, Venous) 08/05/2023 7:35 PM RECORDS ANALYST 08/05/2023 8:13 PM RECORDS ANALYST Lenny Peters M.D. LAB BLOOD ADD-ON [facility] [address] [place] [address], [place] DTL [facility] [address] [place] [address] * CT Chest Angiogram and Pulmonary Arteries with IV Contrast (08/05/2023 2:24 PM RECORDS ANALYST) Anatomical Region Laterality Modality Chest, Cardiovascular RST LO S, Thoracic ARZ LOS, Thoracic FLA LOS N/A Computed Tomography, Compute d Tomography 08/05/2023 2:18 PM RECORDS ANALYST Impressions 08/05/2023 2:50 PM RECORDS ANALYST 1. No acute pulmonary thromboembolism. 2. Findings compatible with pulmonary fibrosis. 3. Similar appearance of lymphomatous infiltration of the duodenum without new acute intra-abdominal abnormality. Narrative 08/05/2023 2:50 PM RECORDS ANALYST EXAM: ??CT CHEST ANGIOGRAM AND PULMONARY ARTERIES WITH IV CONTRAST, CT ABDOMEN PELVIS WITH IV CONTRAST Including 3D image post-processing. COMPARISON: ??Outside CT abdomen pelvis with IV contrast July 17, 2023. PET CT skull to thigh FDG June 28, 2023. FINDINGS: No pulmonary arterial filling defects. Right chest wall Port-A-Cath with tip in the mid SVC. Coronary and aortic atherosclerotic calcifications. Small bilateral pleural effusions. Moderate body wall edema. Gynecomastia. No significant mediastinal lymphadenopathy. Thyroidectomy. Scattered areas of reticulation and interlobular septal thickening more severe in the peripheral lungs. No focal consolidation. Small perihepatic ascites and presacral edema. Multiple lower lumbar laminectomies. Stable cystic mass in the pancreatic head. Mural thickening and soft tissue mass associated with the transverse duodenum is similar or slightly worse compared with July 17, 2023. Mild thickening of the urinary bladder wall. Compression fracture deformities of the superior endplates of L2 and L5 are similar to July 17, 2023 but new since May 11, 2023. Procedure Note Ramon Funes M.D. - 08/05/2023 EXAM: CT CHEST ANGIOGRAM AND PULMONARY ARTERIES WITH IV CONTRAST, CTABDOMEN PELVIS WITH IV CONTRAST Including 3D image post-processing. COMPARISON: Outside CT abdomen pelvis with IV contrast July 17, 2023.PET CT skull to thigh FDG June 28, 2023. FINDINGS: No pulmonary arterial filling defects. Right chest wall Port-A-Cath withtip in the mid SVC. Coronary and aortic atherosclerotic calcifications.Small bilateral pleural effusions. Moderate body wall edema. Gynecomastia.No significant mediastinal lymphadenopathy. Thyroidectomy. Scattered areas of reticulation andinterlobular septal thickening more severe in the peripheral lungs. Nofocal consolidation. Small perihepatic ascites and presacral edema. Multiple lower lumbarlaminectomies. Stable cystic mass in the pancreatic head. Mural thickeningand soft tissue mass associated with the transverse duodenum is similar orslightly worse compared with July 17, 2023. Mild thickening of the urinary bladder wall. Compressionfracture deformities of the superior endplates of L2 and L5 are [facility] but new since May 11, 2023. IMPRESSION: 1. No acute pulmonary thromboembolism. 2. Findings compatible with pulmonary fibrosis. 3. Similar appearance of lymphomatous infiltration of the duodenum withoutnew acute intra-abdominal abnormality. Megan Frazier P.A.-C., M.S. IMG CT LA OCEDURES * Lactate, POCT (08/05/2023 1:38 PM RECORDS ANALYST) Lactate, POCT 0.85 0.50 - 2.20 mmol/L 08/05/2023 4:30 PM RECORDS ANALYST PCLX Blood (Blood, Venous) 08/05/2023 1:38 PM RECORDS ANALYST 08/05/2023 1:38 PM RECORDS ANALYST Megan Frazier P.A.-C., M.S. LAB POCT ORDERABLES - DEVICE POC [facility] [address] [place] [address], [facility] [[email or web address]] PCLX [facility] POC [address] [place] [address] * (ABNORMAL) Hematology/Oncology - Blood, External Lab Results (08/05/2023 9:15 AM RECORDS ANALYST) Only the most recent of2 resultswithin the time period is included. EXT Hemoglobin 6.6(A) 13.5 - 17.5 SCANNED REPORT EXT Hematocrit 21.2 SCANNED REPORT EXT Leukocytes 6.72 SCANNED REPORT EXT Absolute Neutrophil Count 5.80 SCANNED REPORT EXT Lymphs Absolute 0.20 SCANNED REPORT EXT Platelet Count 106 SCANNED REPORT Blood 08/05/2023 9:15 AM RECORDS ANALYST Historical Provider LAB BLOOD NON ADD-ON SCANNED REPORT * IR Implanted Vascular Access Device Placement (07/22/2023 10:31 AM RECORDS ANALYST) Anatomical Region Laterality Modality Chest, Pelvis, Abdomen, Vasc ular Interventional RST LOS, Vascular Interventional ARZ LOS, Vascular Interventional FLA LOS N/A X-Ray Angiography 07/22/2023 10:4 9 AM RECORDS ANALYST Impressions 07/22/2023 11:33 AM RECORDS ANALYST Placement of an 8 Fr slim Power Port-A-Cath. Ready for use. EP Narrative 07/22/2023 11:33 AM RECORDS ANALYST EXAM: IR IMPLANTED VASCULAR ACCESS DEVICE PLACEMENT CLINICAL HISTORY: ??Port requested for chemotherapy. TECHNIQUE: ??Patient was prepped and draped in the usual sterile fashion over the right and left neck and chest. 1% buffered lidocaine was used as local anesthetic. Using ultrasound guidance, left IJ access was established using micropuncture technique for intraprocedural sedation purposes. Next, using ultrasound guidance to access vessel, patency was shown and after anesthetizing the skin with lidocaine the right internal jugular vein was punctured successfully. A permanent image was created and stored. Wire advanced into the IVC and a 5F dilator advanced over the wire and attached to a one-way stop-cock. Suitable port site in the right anterior chest was anesthetized and an incision made. Blunt dissection was performed creating a port pocket. An 8 Fr slim PowerPort was placed into the pocket. Catheter was tunneled from the port pocket to the venotomy site. Catheter was cut to length and advanced through a peel-away sheath. Catheter tip is near the SVC/RA junction. Port was flushed with heparinized saline and is ready for use. Port pocket closed with interrupted 3-0 Vicryl sutures and Dermabond. Venotomy site closed with 4-0 Vicryl suture and Dermabond. No immediate complication. The left IJ venous access was then removed without complication. For placement of this central venous access, we followed catheter checklist and a standardized protocol. The position of the catheter tip was confirmed under fluoroscopic guidance and a final image of the catheter position was obtained. Ready for use. CT injectable PowerPort was placed. This device can be power injected up to a pressure of 300 PSI and flow rate of 5 mL/sec. PREPROCEDURE: Patient seen, evaluated, history reviewed, and approved for sedation. Airway, heart, and lung exam satisfactory for sedation. Discussed risks, benefits, alternatives for procedure, and/or sedation. The roles and responsibilities of care team members, residents, and fellows were discussed. Patient understands information and questions answered. Informed consent obtained from the patient. Immediately prior to starting the procedure, in the presence of the assisting personnel, a procedural pause was conducted to verify correct patient identity and verification of procedure to be performed, and as applicable, correct side and site, correct patient position, availability of implants, special equipment, or special requirements, and all image and specimen identification data. INTRAPROCEDURE: Moderate sedation was administered by sedation nurse under my supervision. The patient was continuously monitored with real time oxygen saturation, heart rate, ECG rhythm strip and blood pressure throughout administration of the sedation and performance of the procedure. The total intra-procedural sedation time was: 34 minutes. Procedure Note Noe Guevara M.D. - 07/22/2023 EXAM: IR IMPLANTED VASCULAR ACCESS DEVICE PLACEMENT CLINICAL HISTORY: Port requested for chemotherapy. TECHNIQUE: Patient was prepped and draped in the usual sterile fashionover the right and left neck and chest. 1% buffered lidocaine was used aslocal anesthetic. Using ultrasound guidance, left IJ access wasestablished using micropuncture technique for intraprocedural sedation purposes. Next, using ultrasound guidance toaccess vessel, patency was shown and after anesthetizing the skin withlidocaine the right internal jugular vein was punctured successfully. Apermanent image was created and stored. Wire advanced into the IVC and a 5F dilator advanced over the wireand attached to a one-way stop-cock. Suitable port site in the rightanterior chest was anesthetized and an incision made. Blunt dissection wasperformed creating a port pocket. An 8 Fr slim PowerPort was placed into the pocket. Catheter was tunneledfrom the port pocket to the venotomy site. Catheter was cut to length andadvanced through a peel-away sheath. Catheter tip is near the SVC/RAjunction. Port was flushed with heparinized saline and is ready for use. Port pocket closed withinterrupted 3-0 Vicryl sutures and Dermabond. Venotomy site closed with4-0 Vicryl suture and Dermabond. No immediate complication. The left IJvenous access was then removed without complication. For placement of this central venous access, we followed catheterchecklist and a standardized protocol. The position of the catheter tipwas confirmed under fluoroscopic guidance and a final image of thecatheter position was obtained. Ready for use. CT injectable PowerPort was placed. This device can be power injected upto a pressure of 300 PSI and flow rate of 5 mL/sec. PREPROCEDURE: Patient seen, evaluated, history reviewed, and approved forsedation. Airway, heart, and lung exam satisfactory for sedation.Discussed risks, benefits, alternatives for procedure, and/or sedation.The roles and responsibilities of care team members, residents, and fellows were discussed. Patient understandsinformation and questions answered. Informed consent obtained from thepatient. Immediately prior to starting the procedure, in the presence ofthe assisting personnel, a procedural pause was conducted to verify correct patient identity and verificationof procedure to be performed, and as applicable, correct side and site,correct patient position, availability of implants, special equipment, orspecial requirements, and all image and specimen identification data. INTRAPROCEDURE: Moderate sedation was administered by sedation nurse undermy supervision. The patient was continuously monitored with real timeoxygen saturation, heart rate, ECG rhythm strip and blood pressurethroughout administration of the sedation and performance of the procedure. The total intra-procedural sedation timewas: 34 minutes. IMPRESSION: Placement of an 8 Fr slim Power Port-A-Cath. Ready for use. EP Bety LOPEZ IR PROCEDURES * CT ABDOMEN PELVIS W CON-Outside CT Body (07/17/2023 9:00 PM RECORDS ANALYST) 07/17/2023 9:00 PM RECORDS ANALYST Narrative [facility] - 07/17/2023 11:20 PM RECORDS ANALYST This order has been created and auto-finalized to support the import of outside images. If available, original interpretation can be found on the Media Tab in Chart Review, in Document Viewer, or as an image in QREADS. If a re-interpretation or overread is required please follow defined workflow. ?? 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 See document viewer. Advance Directives 02/19/2014 12:00 AM [facility] document. See document viewer. Latest Code Status on File Code Status Date Activated Date Inactivated Comments Full Code 10/04/2023 3:36 PM Question Answer Comments Full Code: Discussed Code Status History Code Status Date Activated Date Inactivated Comments Full Code 09/15/2023 12:41 AM 10/02/2023 7:11 PM Question Answer Comments Full Code: Discussed Full Code 08/05/2023 5:18 PM 08/07/2023 6:01 PM Question Answer Comments Full Code: Discussed Full Code 05/12/2023 4:13 AM 05/23/2023 3:20 PM Question Answer Comments Full Code: Discussed Full Code 04/29/2023 10:26 PM 05/07/2023 9:17 PM Question Answer Comments Full Code: Discussed Care Teams [employer] Relationship Specialty Start Date End Date Elsewhere, Pcp PCP - General Internal Medicine 09/14/23
--- OUTSIDE RECORDS SUMMARY | 2023-10-05 12:49 | XMS_ITS ---
Author Name Unknown Organization [facility] Address [address] [place] [id number] Care Team Providers Care Printing Film Stripper Name Role Phone Unavailable Unavailable Unavailable Surgery Details Not on file Complications Check Surgery Details section. Procedure Estimated Blood Loss Check Surgery Details section. Procedure Findings Check Surgery Details section. Procedure Specimens Taken Check Surgery Details section.
--- OUTSIDE RECORDS SUMMARY | 2023-10-05 12:49 | XMS_ITS | Referral Summary ---
Author Name Unknown Organization [facility] Address [address] [place] [address] Care Team Providers Care Resource Analyst Name Role Phone Elsewhere, Pcp Primary Care Provider Unavailabl e Source Comments Patient records contain information from all sites at [facility]. For routine questions regarding patient records, call [phone] during business hours, M-F 8:00 AM - 5:00 PM Central Time. Record requests for emergency care only can be directed to [phone] at any time.[facility] Encounters Date Type Department Care Team Description 10/05/2023 12:33 AM POULTRY TRIMMER Anesthesia Event [facility] OR [address] [place] [phone] Carolee Ferguson M.D. Walsh, Emily E, M.D. 10/04/2023 11:45 PM POULTRY TRIMMER - 10/05/2023 2:57 AM POULTRY TRIMMER Surgery [facility] [address] [place] [phone] Omar Hennessy M.D. EXPLORATION ABDOMINAL - TEMPORARY CLOSURE ABDOMINAL, SMALL BOWEL RESECTION 10/04/2023 12:48 PM POULTRY TRIMMER Anesthesia Event [facility] [address] [place] [phone] Ronald De Paz M.D. Keena Diggs, LOGISTICS RESEARCH ENGINEER, LACQUER PIN PRESS OPERATOR 10/04/2023 11:23 AM POULTRY TRIMMER - 10/04/2023 2:52 PM POULTRY TRIMMER Surgery [facility] [address] [place] [phone] Rudy Lazar M.D. EXPLORATORY LAPAROTOMY. SMALL BOWEL RESECTION. RETURN TRIPS TO OR. TEMPORARY CLOSURE. WOUND VAC PLACEMENT. 10/04/2023 8:06 AM POULTRY TRIMMER - Present Hospital Encounter [facility], [facility], [facility], Seventh Floor [address] [place] [phone] Jayna Albert M.D. Ballinger, Beth A, M.D. Schiller, Henry J, M.D. Volvulus Cecal (HCC) (Primary Dx); Peritonitis Acute Generalized (HCC); Ischemia Mesenteric (HCC) 10/03/2023 Clinical Communication Division of Hematology in [address] [phone] Hola Claudio M.D. est/hem/lymphoma/ 2/2 10/03/2023 10:30 AM POULTRY TRIMMER Clinical Support Division of Endocrinology in [address] [phone] Tee Reynolds M.D. Valerie Krishnan, R.N. Dietary Counseling And Surveillance For Enteral Nutrition 10/03/2023 Orders Only Division of Endocrinology in [address] [phone] Anupama Schwartz, R.N. Dietary Counseling And Surveillance For Enteral Nutrition (Primary Dx) 10/03/2023 3:30 PM POULTRY TRIMMER Office Visit Division of Hematology in [place], [place] [address] [place] [phone] Arti Epstein M.B.B.S. Lymphoma Non Hodgkins (HCC) (Primary Dx); Obstruction Intestinal (HCC); Gastrojejunostomy Percutaneous Status Post ; Duct Layer Supervisor Current Drug Therapy, Chemotherapy 10/03/2023 11:00 AM POULTRY TRIMMER Comprehensive Visit Division of Endocrinology in [place], [place] [address] [place] [phone] Faustino Nuñez M.B.B.S. Re[employer]West APRN, C.N.P., M.S. Mass Duodenum (Primary Dx); Lymphoma Non Hodgkins (HCC); Malnutrition Severe Protein-Calorie (HCC); Gastrojejunostomy Percutaneous Status Post ; Dietary Counseling And Surveillance For Enteral Nutrition 10/03/2023 2:00 PM POULTRY TRIMMER Clinical Support Department of Nutrition and Diabetes Education in [place], [place] [address] [place] [address] Faustino Nuñez M.B.B.S. Epp, Lisa M, RDN, LD Lymphoma Non Hodgkins (HCC); Mass Duodenum 10/03/2023 9:30 AM POULTRY TRIMMER Nurse Only Division of Endocrinology in [place], [place] [address] [place] [address] Faustino Nuñez M.B.B.S. HPN Management 10/02/2023 Refill Division of Hematology in [place], [place] [address] [place] [address] Btey Castro M.D. Med Refill 09/14/2023 7:08 PM POULTRY TRIMMER - 10/02/2023 5:10 PM POULTRY TRIMMER Hospital Encounter [facility], [facility], [facility], Tenth Floor [address] [place] [address] Aris Mina P.A.-C. Bellamkonda, Venkatesh R, M.D. Cook, Joselle M, M.B.B.S. Gangat, Naseema, M.B.B.S. Khurana, Arushi, M.B.B.S. Paludo, Jonas, M.D. Obstruction Intestinal (HCC) (Primary Dx); Neutropenia (HCC); Leukopenia; Lymphoma Non Hodgkins (HCC); Mass Duodenum; Effusion Knee Right; Decline Functional Status [R53.81]; Gastrojejunostomy Percutaneous Status Post ; History Of Falling; Foot Drop Right; Radiculopathy Lumbar Fifth Right Discharge Disposition: Home or Self Care 10/01/2023 10:30 AM POULTRY TRIMMER Ancillary Procedure Department of Nursing 10/01/2023 10:25 AM POULTRY TRIMMER Ancillary Procedure Department of Nursing 09/27/2023 11:25 AM POULTRY TRIMMER Ancillary Procedure Department of Gastroenterology 09/27/2023 11:44 AM POULTRY TRIMMER Anesthesia Event Division of Gastroenterology in [place], [place] [address] [place] [phone] Michelle Waite APRN, CRNA, D.N.Zaid Adler M.D. 09/24/2023 8:55 AM POULTRY TRIMMER Ancillary Procedure Department of Nursing 09/24/2023 8:50 AM POULTRY TRIMMER Ancillary Procedure Department of Nursing 09/20/2023 Clinical Communication RST HIM [address] [place] [phone] Ling Carrillo M.D. Post Hospital Follow-up 09/20/2023 Clinical Communication RST [address] [phone] Ling Carrillo M.D. Post Hospital Follow-up 09/17/2023 Documentation Division of Endocrinology in [address] [phone] Micaela Reich R.N. Scheduling 09/17/2023 2:40 PM POULTRY TRIMMER Ancillary Procedure Department of Gastroenterology 09/17/2023 Orders Only Department of Radiology, [facility], in [place], [place] [address] [place] [phone] Kye Lunsford 09/17/2023 2:59 PM POULTRY TRIMMER Anesthesia Event Division of Gastroenterology in [address] [phone] Petty Garcia APRN, CRNA, MNA Peffley, Nathan D, M.D. 09/15/2023 8:55 AM POULTRY TRIMMER Ancillary Procedure Department of Transplantation Surgery 09/13/2023 12:45 PM POULTRY TRIMMER Clinical Communication Virtual Review in [place], [place] [address] [place] [address] Pre-visit Intake 09/11/2023 Orders Only Department of Endocrinology in [address] [phone] Rosemarie Dutton APRN, C.N.P., M.S. 09/11/2023 Refill Division of Endocrinology in [address] [phone] Rosemarie Dutton APRN C.N.P., M.S. Med Refill (Levothyroxine) 09/10/2023 7:10 AM POULTRY TRIMMER Lab Department of Laboratory Medicine and Pathology, [facility], in [place], [place] [address] [place] [address] Bety Castro M.D. Lymphoma Non Hodgkins (HCC) 09/04/2023 Clinical Communication Division of Hematology in [place], [place] [address] [place] [phone] Hola Claudio M.D. EST HEM LYMPH CHEMO 09/16/23 09/04/2023 2:50 PM POULTRY TRIMMER Lab Department of Infusion Therapy in [place], [place] [address] [place] [phone] Bev Gifford APRN, C.N.P., M.S.N. Lymphoma Non Hodgkins (HCC) (Primary Dx); Anemia 09/04/2023 5:30 PM POULTRY TRIMMER Infusion Department of Infusion Therapy in [place], [place] [address] [place] [phone] Bev Gifford APRN, C.N.P., M.S.N. Lymphoma Non Hodgkins (HCC) (Primary Dx); Anemia 09/04/2023 Orders Only Division of Hematology in [place], [place] [address] [place] [phone] Bev Gifford APRN, C.N.P., M.S.N. Lymphoma Non Hodgkins (HCC) (Primary Dx); Anemia 09/04/2023 Clinical Communication Division of Hematology in [place], [place] [address] [place] [phone] Bev Gifford APRN, C.N.P., M.S.N. 09/04/2023 10:40 AM POULTRY TRIMMER Lab Department of Infusion Therapy in [place], [place] [address] [place] [phone] Garcia Flores M.D., Ph.D. Lymphoma Non Hodgkins (HCC) (Primary Dx) 09/04/2023 1:00 PM POULTRY TRIMMER Office Visit Division of Hematology in [place], [place] [address] [place] [phone] Bev Gifford APRN, C.N.P., M.S.N. Lymphoma Non Hodgkins (HCC) 08/29/2023 Refill Division of Endocrinology in [place], [place] [address] [place] [phone] Rosemarie Dutton APRN C.N.P., M.S. Med Refill 08/28/2023 Refill Division of [facility], [facility] in [place], [place] [address] [place] [phone] Roseann Sheldon M.B., B.Ch., B.A.O. Med Refill 08/27/2023 Clinical Communication Division of Hematology in [place], [place] [address] [place] [phone] Hola Claudio M.D. Swollen toe concerns 08/27/2023 11:00 AM POULTRY TRIMMER Clinical Communication Virtual Review in [place], [place] [address] [place] [address] Pre-visit Intake 08/19/2023 Clinical Communication Division of Hematology in [place], [place] [address] [place] [phone] Hola Claudio M.D. 08/19/2023 8:50 AM POULTRY TRIMMER Lab Department of Laboratory Medicine and Pathology, [facility], in [place], [place] [address] [place] [phone] Bety Castro M.D. Lymphoma Non Hodgkins (HCC) 08/13/2023 2:10 PM POULTRY TRIMMER Ancillary Procedure Department of Gastroenterology 08/13/2023 7:30 AM POULTRY TRIMMER Infusion Department of Infusion Therapy in [place], [place] [address] [place] [phone] Bety Castro M.D. Lymphoma Non Hodgkins (HCC) (Primary Dx) Discharge Disposition: Home or Self Care 08/13/2023 11:34 AM POULTRY TRIMMER - 08/13/2023 11:59 PM POULTRY TRIMMER Hospital Encounter Division of Gastroenterology in [address] [phone] Roseann Sheldon M.B., B.Ch., B.A.O. Beata Fajardo M.D. Mueller, Denise A, APRN, CRNA Lymphoma Non Hodgkins (HCC) Discharge Disposition: Home or Self Care 08/13/2023 2:20 PM POULTRY TRIMMER Anesthesia Event Division of Gastroenterology in [address] [phone] Ashia Barakat APRN, CRNA Warner, Mary E, M.D. 08/12/2023 Orders Only Division of Hematology in [address] [phone] Bety Castro M.D. Lymphoma Non Hodgkins (HCC) (Primary Dx) 08/12/2023 7:40 AM POULTRY TRIMMER Lab Department of Oncology in [address] [phone] Bety Castro M.D. Lymphoma Non Hodgkins (HCC) (Primary Dx); Hypokalemia 08/12/2023 12:30 PM POULTRY TRIMMER Infusion Department of Oncology in [address] [phone] Bety Castro M.D. Lymphoma Non Hodgkins (HCC) (Primary Dx) 08/12/2023 9:30 AM POULTRY TRIMMER Office Visit Division of Hematology in [address] [phone] Bety Castro M.D. Witzig, Thomas E, M.D. Lymphoma Non Hodgkins (HCC) (Primary Dx) 08/09/2023 9:43 AM POULTRY TRIMMER - 08/09/2023 11:59 PM POULTRY TRIMMER Hospital Encounter Department of Radiology, [facility], in [address] [address] Bety Castro M.D. Lymphoma Non Hodgkins (HCC) Discharge Disposition: Home or Self Care 08/08/2023 Clinical Communication Division of Hematology in [place], [place] [address] [place] [phone] Bety Castro M.D. Med Question; Treatment Questions 08/08/2023 11:59 PM POULTRY TRIMMER Hospital Encounter Division of Gastroenterology in [place], [place] [address] [place] [phone] Roseann Sheldon M.B., B.Ch., B.A.O. Canceled (Clinic: Request) Discharge Disposition: Home or Self Care 08/07/2023 Clinical Communication [facility] [address] [place] [phone] Roseann Sheldon M.B., B.Ch., B.A.O. Post Hospital Follow-up 08/05/2023 12:12 PM POULTRY TRIMMER - 08/07/2023 3:50 PM POULTRY TRIMMER Hospital Encounter [facility], [facility], [facility], Third Floor [address] [place] [phone] Megan Frazier P.A.-C., MLakia. Bharat Reyna P.A.-C. Ricardo Pickard M.D. Hypokalemia (Primary Dx); Thrombocytopenia (HCC); Anemia; History Of Falling; Lymphoma Non Hodgkins (HCC); Diabetes Mellitus Type 2 (HCC) Discharge Disposition: Home or Self Care 08/05/2023 5:55 PM POULTRY TRIMMER Ancillary Procedure Department of Nursing 08/05/2023 5:50 PM POULTRY TRIMMER Ancillary Procedure Department of Nursing 08/05/2023 5:45 PM POULTRY TRIMMER Ancillary Procedure Department of Nursing 08/05/2023 5:40 PM POULTRY TRIMMER Ancillary Procedure Department of Nursing 08/05/2023 Intake [facility] 08/05/2023 Clinical Communication Division of Hematology in [place], [place] [address] [place] [address] Garcia Flores M.D., Ph.D. 08/02/2023 Clinical Communication Division of Hematology in [place], [place] [address] [place] [address] Garcia Flores M.D., Ph.D. Order Request 07/29/2023 Clinical Communication Division of Hematology in [place], [place] [address] [place] [phone] Garcia Flores M.D., Ph.D. EST Lymphoma 07/29/2023 Clinical Communication Division of Hematology in [place], [place] [address] [place] [phone] Bety Castro M.D. External Lab Entry 07/24/2023 2:45 PM POULTRY TRIMMER Infusion Department of Infusion Therapy in [address] [phone] Bety Castro M.D. Lymphoma Non Hodgkins (HCC) (Primary Dx) 07/23/2023 10:00 AM POULTRY TRIMMER Infusion Department of Oncology in [place], [place] [address] [place] [address] Bety Castro M.D. Lymphoma Non Hodgkins (HCC) (Primary Dx) 07/22/2023 Clinical Communication Division of Hematology in [place], [place] [address] [place] [phone] Garcia Flores M.D., Ph.D. 07/22/2023 7:57 AM POULTRY TRIMMER - 07/22/2023 11:15 AM POULTRY TRIMMER Hospital Encounter Department of Radiology in [place], [place] [address] [place] [address] Bety Castro M.D. Linch, Forrest B, M.D. Brooklyn Freeman M.D. Lymphoma Non Hodgkins (HCC); Other Mcfp Current Drug Therapy Discharge Disposition: Home or Self Care 07/22/2023 3:30 PM POULTRY TRIMMER Office Visit Division of Hematology in [place], [place] [address] [place] [phone] Bety Castro M.D. Lymphoma Non Hodgkins (HCC) (Primary Dx) 07/19/2023 9:45 AM [facility] Clinical Communication Virtual Review in [place], [place] [address] [place] [address] Pre-visit Intake 07/18/2023 Clinical Communication Division of Hematology in [place], [place] [address] [place] [address] Bety Castro M.D. Patient update from Last 3 Months Allergies Active Allergy Reactions Criticality Noted Date [...] as needed (neuropathy). 15 tablet 0 05/07/20 Suspended Additional Information Patient taking differently:12.5 mgoralBedtime PRN, neuropathy, Reported on 08/06/2023 ondansetron ODT (ZOFRAN-ODT) 8 mg disintegrating tablet Dissolve 1 tablet (8 mg total) in the mouth every 8 (eight) hours as needed for nausea or vomiting. 20 tablet 0 05/07/20 Suspended Additional Information allopurinoL (ZYLOPRIM) 300 mg [...] daily. HOLDNot taking during chemo 0 08/07/20 024 Discontinued metFORMIN (GLUCOPHAGE) 1,000 mg tabletIndications: [...] MCG) EVERY MORNING 30 tablet 0 08/07/20 Discontinued(Re order) simvastatin (ZOCOR) 20 mg tablet [...] a chemo day) 10 tablet 4 08/12/20 024 Discontinued( erapy completed) magnesium oxide (MagOx) 400 mg [...] days. 20 capsule 0 09/04/20 23 024 Discontinued(Th erapy completed) levothyroxine (SYNTHROID, LEVOTHROID) 112 mcg [...] MORNING BEFORE BREAKFAST 30 tablet 1 10/03/19 24 Suspended Additional Information Hospital, Clinic, or Other [...] Hypokalemia 08/05/2023 Anemia 08/05/2023 Thrombocytopenia 08/05/2023 Other Duct Layer Supervisor Current Drug Therapy 05/22/2023 Lymphoma Non Hodgkins [...] Overview: Added automatically from request for surgery [id number] Obesity Body Mass Index 30-39.9 Adult 01/29/2019 [...] 400 mcg Neuropathy Peripheral 2019 Hypothyroidism 10/22/2019 Immunizations Name Administration Dates Next Due H1N1 [...] quad (FLUZONE/FLUARIX) (6 months and older)(PF) 07/06/2015 Social History Tobacco Use Types Packs/Day Years Used Date Smoking Tobacco: Former Cigarettes 1 22 Q uit: 02/07/1989 Passive Smoke Exposure: Never Smokeless Tobacco: Former Snuff, Chew Quit: 04/18/2023 Tobacco Cessation:Counseling Given: Not Answered Alcohol Use Standard Drinks/Week Comments Not Currently 3 (1 standard drink = 0.6 oz pur e alcohol) [facility] Utilities Answer Date Recorded In the past 12 months has e electric, gas, oil, or water company threatened to shut off services in your [...] or neighbors? Three times a week 01/11/20 23 How often do you get togethe r with friends or relatives? Three times a week 01/10/2023 How often do you attend chur ch or yazidi services? Never 01/10/2023 Do you belong to any clubs o r organizations such as jainism groups, unions, fraternal or athletic groups, or [...] Date Recorded PHQ-2 Score 0 04/25/2020 [facility] Occupational Stress Questionnaire Answer Date Recorded [...] your living situation today? [facility] 09/15/2023 Education Answer Date [...] Comments Blood Pressure 110/69 10/05/2023 12:00 PM POULTRY TRIMMER Pulse 104 10/05/2023 12:30 PM POULTRY TRIMMER Temperature 37.6 ??C (99.7 ??F) 10/05/2023 12:[address] Respiratory Rate 22 10/05/2023 12:30 PM POULTRY TRIMMER Oxygen Saturation 98% 10/05/2023 12:30 PM POULTRY TRIMMER Inhaled Oxygen Concentration - - Weight 84.4 kg (186 lb 1.1 oz) 10/05/2023 2:37 A M POULTRY TRIMMER Height 172 cm (5' 7.72) 10/04/2023 6:00 PM POULTRY TRIMMER Body Mass Index 28.53 10/04/2023 6:00 PM POULTRY TRIMMER Plan of Treatment Upcoming Encounters Date Type Department Care Team (Latest Contact Info) Description 10/06/2023 9:04 AM POULTRY TRIMMER - 10/06/2023 11:24 AM POULTRY TRIMMER Surgery [facility] MAIN OR [address] [place] [phone] Cameron Saenz M.D. [address] [place] [phone] ABDOMINAL EXPLORATION, REMOVAL ABTHERA, POSSBLE BOWEL RESECTION, PROCEED INDICATED 10/11/2023 7:00 AM POULTRY TRIMMER Appointment Department of Laboratory Medicine and Pathology, [facility], in [place], [place] [address] [place] [phone] Arti Epstein M.B.B.S. [address] [place] [phone] 10/11/2023 9:00 AM POULTRY TRIMMER Office Visit Division of Hematology in [place], [place] [address] [place] [phone] Arti Epstein M.B.B.S. [address] [place] [phone] 10/11/2023 10:00 AM POULTRY TRIMMER Infusion Department of Oncology in [place], [place] [address] [place] [phone] Bev Gifford APRN, C.N.P., M.S.N. [address] [place] [phone] 11/19/2023 10:00 AM CDT Office Visit Division of Endocrinology in [address] [phone] [place] Mendoza APRN, Lola.N.Ash., M.S. [address] [place] [phone] 11/19/2023 2:30 PM CDT Comprehensive Visit Division of Hepatobiliary and Pancreas Surgery in [address] [phone] Wesley Hamilton M.D. [address] [place] [phone] Scheduled Procedures Name Priority Associated Diagnoses Date/Ti me LAPAROTOMY - ABDOMINAL WASHOUT Ischemia Intestinal With Stricture (HCC) 10/06/2023 9:04 AM [facility] Medical Devices Implanted Type Area Wax Pattern Repairer Device Identifier Shelf Expiration Date Model / Serial / Lot Hardware E.G. Pins/Screws/ Rods Hardware e.g. pins/screws/ro ds Left: Shoulder Description:Per pt two pins Prt Pwr Mri Mctrdcr 8f - [id number] Implanted:Qt y: 1 on 07/22/2023 by Noe Guevara M.D. at [facility] Implantable Port Chest [employer].Bard 02/06/2025 [id number] / / [id number] Procedures The patient is currently admitted. The information in this section might not be complete until the patient is discharged. Procedure Name Priority Date/Time Associated Diagnosis Comments PATIENT STATUS Timed 10/05/2023 12:01 PM POULTRY TRIMMER LACTATE, B Timed 10/05/2023 12:01 PM POULTRY TRIMMER ABG W/COOX Timed 10/05/2023 12:01 PM POULTRY TRIMMER GLUCOSE POCT, B Routine 10/05/2023 11:45 AM POULTRY TRIMMER GLUCOSE POCT, B Routine 10/05/2023 7:21 AM POULTRY TRIMMER HEPARIN LEVEL ANTI-XA ASSAY, P Timed 10/05/2023 7:21 AM POULTRY TRIMMER GLUCOSE POCT, B Routine 10/05/2023 6:15 AM POULTRY TRIMMER DX CHEST PORTABLE 1 VIEW RAD - Routine (most inpatients and all outpatients) 10/05/2023 6:07 AM POULTRY TRIMMER GLUCOSE POCT, B Routine 10/05/2023 5:02 AM POULTRY TRIMMER CALCIUM, IONIZED, S/B Timed 10/05/2023 4:28 AM POULTRY TRIMMER PATIENT STATUS Timed 10/05/2023 4:28 AM POULTRY TRIMMER ABG W/COOX Timed 10/05/2023 4:28 AM POULTRY TRIMMER CBC WITHOUT DIFFERENTIAL, B Routine 10/05/2023 4:27 AM POULTRY TRIMMER LACTATE, B/P Timed 10/05/2023 4:27 AM POULTRY TRIMMER CYSTATIN C WITH EGFR Timed 10/05/2023 4:27 AM POULTRY TRIMMER PHOSPHORUS (INORGANIC), S Timed 10/05/2023 4:27 AM POULTRY TRIMMER MAGNESIUM, S Timed 10/05/2023 4:27 AM POULTRY TRIMMER BASIC METABOLIC PANEL, S/P Timed 10/05/2023 4:27 AM POULTRY TRIMMER TRANSFUSE RED BLOOD CELLS Routine 10/05/2023 4:22 AM POULTRY TRIMMER GLUCOSE POCT, B Routine 10/05/2023 4:12 AM POULTRY TRIMMER GLUCOSE POCT, B Routine 10/05/2023 3:15 AM POULTRY TRIMMER TRANSFUSE RED BLOOD CELLS Routine 10/05/2023 3:09 AM POULTRY TRIMMER GLUCOSE POCT, B Routine 10/05/2023 2:10 AM POULTRY TRIMMER PATIENT STATUS STAT 10/05/2023 12:52 AM POULTRY TRIMMER LACTATE, B STAT 10/05/2023 12:52 AM POULTRY TRIMMER GLUCOSE, WHOLE BLOOD STAT 10/05/2023 12:52 AM POULTRY TRIMMER POTASSIUM, B STAT 10/05/2023 12:52 AM POULTRY TRIMMER SODIUM, B STAT 10/05/2023 12:52 AM POULTRY TRIMMER CALCIUM, IONIZED, S/B STAT 10/05/2023 12:52 AM POULTRY TRIMMER ABG W/COOX STAT 10/05/2023 12:52 AM POULTRY TRIMMER GLUCOSE POCT, B Routine 10/05/2023 12:02 AM POULTRY TRIMMER GLUCOSE POCT, B Routine 10/04/2023 11:19 PM POULTRY TRIMMER ACTIVATED PARTIAL THROMBOPLASTIN TIME (APTT), P STAT 10/04/2023 10:08 PM POULTRY TRIMMER GLUCOSE POCT, B Routine 10/04/2023 10:07 PM POULTRY TRIMMER BASIC METABOLIC PANEL, S/P STAT 10/04/2023 10:03 PM POULTRY TRIMMER CBC WITHOUT DIFFERENTIAL, B STAT 10/04/2023 10:03 PM POULTRY TRIMMER THROMBOELASTOGRAPH, KAOLIN, B STAT 10/04/2023 9:59 PM POULTRY TRIMMER GLUCOSE POCT, B Routine 10/04/2023 9:03 PM POULTRY TRIMMER US UPPER EXTREMITY VEINS RIGHT RAD - Semiurgent (Fast; most ED patients; some inpatients) 10/04/2023 8:40 PM POULTRY TRIMMER GLUCOSE POCT, B Routine 10/04/2023 8:15 PM POULTRY TRIMMER PATIENT STATUS Timed 10/04/2023 7:54 PM POULTRY TRIMMER ABG W/COOX Timed 10/04/2023 7:54 PM POULTRY TRIMMER LACTATE, B/P Timed 10/04/2023 7:53 PM POULTRY TRIMMER URINALYSIS, DIPSTICK Routine 10/04/2023 6:39 PM POULTRY TRIMMER GLUCOSE POCT, B Routine 10/04/2023 6:32 PM POULTRY TRIMMER TROPONIN T, 2H/6H, 5TH GEN, P Timed 10/04/2023 5:57 PM POULTRY TRIMMER DX CHEST PORTABLE 1 VIEW RAD - Routine (most inpatients and all outpatients) 10/04/2023 5:42 PM POULTRY TRIMMER GLUCOSE POCT, B Routine 10/04/2023 5:01 PM POULTRY TRIMMER AIRWAY CARE Routine 10/04/2023 4:31 PM POULTRY TRIMMER AIRWAY CARE Routine 10/04/2023 4:31 PM POULTRY TRIMMER AIRWAY CARE Routine 10/04/2023 4:31 PM POULTRY TRIMMER MC ANE CENTRAL LINE GENERIC PERFORMABLE Routine 10/04/2023 4:25 PM POULTRY TRIMMER Peritonitis Acute Generalized (HCC) LDA ANE CENTRAL LINE TRIPLE LUMEN Routine 10/04/2023 4:25 PM POULTRY TRIMMER Peritonitis Acute Generalized (HCC) [place] NON-JEFRY CVC >5YR Routine 10/04/2023 4:25 PM POULTRY TRIMMER Peritonitis Acute Generalized (HCC) ECG Semiurgent (Fast, most ED patients, some inpatients) 10/04/2023 4:17 PM POULTRY TRIMMER PATIENT STATUS STAT 10/04/2023 3:49 PM POULTRY TRIMMER TROPONIN T, BASELINE, 5TH GEN, P STAT 10/04/2023 3:49 PM POULTRY TRIMMER PROTHROMBIN TIME (PT), P STAT 10/04/2023 3:49 PM P[employer] TR[employer]MER PHOSPHORUS (INORGANIC), S STAT 10/04/2023 3:49 PM P[employer] TR[employer]MER MAGNESIUM, S STAT 10/04/2023 3:49 PM POULTRY TR[employer]MER LACTATE, B/P STAT 10/04/2023 3:49 PM P[employer]LTRY TR[employer]MER HEPATIC FUNCTION PANEL, S STAT 10/04/2023 3:49 PM POULTRY TR[employer]MER CBC WITHOUT DIFFERENTIAL, B STAT 10/04/2023 3:49 PM P[employer] TR[employer]MER CALCIUM, IONIZED, S/B STAT 10/04/2023 3:49 PM [employer] TR[employer]MER BASIC METABOLIC PANEL, S/P STAT 10/04/2023 3:49 PM P[employer] TR[employer]MER ABG W/COOX STAT 10/04/2023 3:49 PM POULTRY TRIMMER DX CHEST PORTABLE 1 VIEW RAD - Emergent (Fastest; for the most critically ill patients) 10/04/2023 3:44 PM POULTRY TRIMMER MECHANICAL VENTILATOR Routine 10/04/2023 3:41 PM POULTRY TRIMMER MECHANICAL VENTILATOR Routine 10/04/2023 3:41 PM POULTRY TRIMMER MECHANICAL VENTILATOR Routine 10/04/2023 3:41 PM POULTRY TRIMMER MECHANICAL VENTILATOR Routine 10/04/2023 3:41 PM POULTRY TRIMMER MECHANICAL VENTILATOR Routine 10/04/2023 3:41 PM POULTRY TRIMMER MECHANICAL VENTILATOR Routine 10/04/2023 3:41 PM POULTRY TRIMMER THROMBOELASTOGRAPH, KAOLIN, B STAT 10/04/2023 2:58 PM POULTRY TRIMMER TRANSFUSE RED BLOOD CELLS Routine 10/04/2023 2:33 PM POULTRY TRIMMER GLUCOSE, WHOLE BLOOD STAT 10/04/2023 2:00 PM POULTRY TRIMMER POTASSIUM, B STAT 10/04/2023 2:00 PM POULTRY TRIMMER SODIUM, B STAT 10/04/2023 2:00 PM POULTRY TRIMMER CALCIUM, IONIZED, S/B STAT 10/04/2023 2:00 PM POULTRY TRIMMER ABG W/COOX STAT 10/04/2023 2:00 PM POULTRY TRIMMER LDA ANE ARTERIAL LINE INSERTION Routine 10/04/2023 1:45 PM POULTRY TRIMMER MN ARTL CATH/CNULA MONITOR PERC Routine 10/04/2023 1:45 PM POULTRY TRIMMER LDA ANE ENDOTRACHEAL AIRWAY Routine 10/04/2023 1:19 PM POULTRY TRIMMER ADULT OXYGEN THERAPY Routine 10/04/2023 12:05 PM POULTRY TRIMMER CRITICAL CARE Routine 10/04/2023 10:[address] ABDOMEN PELVIS WITH IV CONTRAST RAD - Semiurgent (Fast; most ED patients; some inpatients) 10/04/2023 9:56 AM POULTRY TRIMMER BACTERIA / JOEL CULTURE, BLOOD STAT 10/04/2023 8:50 AM POULTRY TRIMMER LACTATE FOR SEPSIS WITH REFLEX, POCT STAT 10/04/2023 8:41 AM POULTRY TRIMMER MAGNESIUM, S STAT 10/04/2023 8:41 AM POULTRY TRIMMER PROTHROMBIN TIME (PT), P STAT 10/04/2023 8:41 AM POULTRY TRIMMER LIPASE, S/P STAT 10/04/2023 8:41 AM POULTRY TRIMMER HEPATIC FUNCTION PANEL, S STAT 10/04/2023 8:41 AM POULTRY TRIMMER BASIC METABOLIC PANEL, S/P STAT 10/04/2023 8:41 AM POULTRY TRIMMER CBC WITH DIFFERENTIAL, B STAT 10/04/2023 8:41 AM POULTRY TRIMMER BACTERIA / JOEL CULTURE, BLOOD STAT 10/04/2023 8:41 AM POULTRY TRIMMER ECG STAT 10/04/2023 8:16 AM POULTRY TRIMMER VITAMIN B12 ASSAY, S Routine 10/03/2023 12:33 PM POULTRY TRIMMER Mass Duodenum Lymphoma Non Hodgkins (HCC) 25-HYDROXYVITAMIN D2 AND D3, S Routine 10/03/2023 12:33 PM POULTRY TRIMMER Mass Duodenum Lymphoma Non Hodgkins (HCC) Malnutrition Severe Protein-Calorie (HCC) SOLUBLE TRANSFERRIN RECEPTOR (STFR), S Routine 10/03/2023 12:33 PM POULTRY TRIMMER Mass Duodenum Lymphoma Non Hodgkins (HCC) COMPREHENSIVE METABOLIC PANEL, S/P Routine 10/03/2023 12:33 PM POULTRY TRIMMER Neutropenia (HCC) Gout CBC WITH DIFFERENTIAL, B Routine 10/03/2023 12:33 PM POULTRY TRIMMER Neutropenia (HCC) Gout GLUCOSE POCT, B Routine 10/02/2023 1:05 PM POULTRY TRIMMER HEMOGLOBIN, B Timed 10/02/2023 8:36 AM POULTRY TRIMMER GLUCOSE POCT, B Routine 10/02/2023 8:29 AM POULTRY TRIMMER GLUCOSE POCT, B Routine 10/02/2023 6:27 AM POULTRY TRIMMER PREPARE RED BLOOD CELLS Routine 10/02/2023 5:51 AM POULTRY TRIMMER PREPARE RED BLOOD CELLS STAT 10/02/2023 5:51 AM POULTRY TRIMMER TYPE AND SCREEN Routine 10/02/2023 5:51 AM POULTRY TRIMMER MAGNESIUM, S Routine 10/02/2023 5:51 AM POULTRY TRIMMER CBC NO CALL BACK, REFLEX T/S Routine 10/02/2023 5:51 AM POULTRY TRIMMER BASIC METABOLIC PANEL, S/P Routine 10/02/2023 5:51 AM POULTRY TRIMMER GLUCOSE POCT, B Routine 10/01/2023 8:48 PM POULTRY TRIMMER GLUCOSE POCT, B Routine 10/01/2023 7:37 PM POULTRY TRIMMER GLUCOSE POCT, B Routine 10/01/2023 4:16 PM POULTRY TRIMMER GLUCOSE POCT, B Routine 10/01/2023 12:44 PM POULTRY TRIMMER CBC WITH DIFFERENTIAL, B Timed 10/01/2023 11:57 AM POULTRY TRIMMER NURSING IMAGE EXAM Routine 10/01/2023 10:26 AM POULTRY TRIMMER NURSING IMAGE EXAM Routine 10/01/2023 10:25 AM POULTRY TRIMMER GLUCOSE POCT, B Routine 10/01/2023 7:06 AM POULTRY TRIMMER PHOSPHORUS (INORGANIC), S Routine 10/01/2023 5:22 AM POULTRY TRIMMER MAGNESIUM, S Routine 10/01/2023 5:22 AM POULTRY TRIMMER BASIC METABOLIC PANEL, S/P Routine 10/01/2023 5:22 AM POULTRY TRIMMER GLUCOSE POCT, B Routine 09/30/2023 8:33 PM POULTRY TRIMMER GLUCOSE POCT, B Routine 09/30/2023 5:29 PM POULTRY TRIMMER GLUCOSE POCT, B Routine 09/30/2023 12:10 PM POULTRY TRIMMER DX ABDOMEN 1 VIEW RAD - Routine (most inpatients and all outpatients) 09/30/2023 11:04 AM POULTRY TRIMMER GLUCOSE POCT, B Routine 09/30/2023 9:51 AM POULTRY TRIMMER PHOSPHORUS (INORGANIC), S Routine 09/30/2023 5:26 AM POULTRY TRIMMER MAGNESIUM, S Routine 09/30/2023 5:26 AM POULTRY TRIMMER CBC NO CALL BACK, REFLEX T/S Routine 09/30/2023 5:26 AM POULTRY TRIMMER BASIC METABOLIC PANEL, S/P Routine 09/30/2023 5:26 AM POULTRY TRIMMER GLUCOSE POCT, B Routine 09/29/2023 9:05 PM POULTRY TRIMMER GLUCOSE POCT, B Routine 09/29/2023 6:03 PM POULTRY TRIMMER GLUCOSE POCT, B Routine 09/29/2023 1:43 PM POULTRY TRIMMER GLUCOSE POCT, B Routine 09/29/2023 5:58 AM POULTRY TRIMMER CBC NO CALL BACK, REFLEX T/S Routine 09/29/2023 5:30 AM POULTRY TRIMMER PHOSPHORUS (INORGANIC), S Routine 09/29/2023 5:30 AM POULTRY TRIMMER MAGNESIUM, S Routine 09/29/2023 5:30 AM POULTRY TRIMMER BASIC METABOLIC PANEL, S/P Routine 09/29/2023 5:30 AM POULTRY TRIMMER GLUCOSE POCT, B Routine 09/28/2023 9:19 PM POULTRY TRIMMER GLUCOSE POCT, B Routine 09/28/2023 5:13 PM POULTRY TRIMMER GLUCOSE POCT, B Routine 09/28/2023 12:46 PM POULTRY TRIMMER GLUCOSE POCT, B Routine 09/28/2023 12:19 PM POULTRY TRIMMER GLUCOSE POCT, B Routine 09/28/2023 8:56 AM POULTRY TRIMMER PHOSPHORUS (INORGANIC), S Routine 09/28/2023 5:51 AM POULTRY TRIMMER MAGNESIUM, S Routine 09/28/2023 5:51 AM POULTRY TRIMMER CBC NO CALL BACK, REFLEX T/S Routine 09/28/2023 5:51 AM POULTRY TRIMMER BASIC METABOLIC PANEL, S/P Routine 09/28/2023 5:51 AM POULTRY TRIMMER GLUCOSE POCT, B Routine 09/27/2023 9:36 PM POULTRY TRIMMER POTASSIUM, PLASMA Timed 09/27/2023 8:0 6 PM POULTRY TRIMMER GLUCOSE POCT, B Routine 09/27/2023 5:24 PM POULTRY TRIMMER POTASSIUM, S/P Timed 09/27/2023 1:55 PM POULTRY TRIMMER GLUCOSE POCT, B Routine 09/27/2023 1:01 PM POULTRY TRIMMER FL FLUORO LESS THAN 1 HOUR RAD - Routine (most inpatients and all outpatients) 09/27/2023 12:48 PM POULTRY TRIMMER LDA ANE ENDOTRACHEAL AIRWAY Routine 09/27/2023 11:54 AM POULTRY TRIMMER GASTROENTEROLOGY IMAGE EXAM Routine 09/27/2023 11:25 AM POULTRY TRIMMER UPPER GI ENDOSCOPY Routine 09/27/2023 11:22 AM POULTRY TRIMMER EGD ? PERCUTANEOUS ENDOSCOPIC GASTROSTOMY/JEJUNOSTOM Y Routine 09/27/2023 11:22 AM POULTRY TRIMMER GLUCOSE POCT, B Routine 09/27/2023 11:22 AM POULTRY TRIMMER ECG Semiurgent (Fast, most ED patients, some inpatients) 09/27/2023 9:26 AM POULTRY TRIMMER GLUCOSE POCT, B Routine 09/27/2023 8:08 AM POULTRY TRIMMER PROTHROMBIN TIME (PT), P Routine 09/27/2023 5:53 AM POULTRY TRIMMER CBC WITH DIFFERENTIAL, B Routine 09/27/2023 5:53 AM POULTRY TRIMMER BASIC METABOLIC PANEL, S/P Routine 09/27/2023 5:53 AM POULTRY TRIMMER PHOSPHORUS (INORGANIC), S Routine 09/27/2023 5:48 AM POULTRY TRIMMER MAGNESIUM, S Routine 09/27/2023 5:48 AM POULTRY TRIMMER URIC ACID, S/P Routine 09/27/2023 5:48 AM POULTRY TRIMMER GLUCOSE POCT, B Routine 09/26/2023 8:19 PM POULTRY TRIMMER GLUCOSE POCT, B Routine 09/26/2023 5:57 PM POULTRY TRIMMER GLUCOSE POCT, B Routine 09/26/2023 3:28 PM POULTRY TRIMMER POTASSIUM, S/P Timed 09/26/2023 2:52 PM POULTRY TRIMMER GLUCOSE POCT, B Routine 09/26/2023 12:01 PM POULTRY TRIMMER ECG Routine 09/26/2023 7:29 AM POULTRY TRIMMER CBC WITH DIFFERENTIAL, B Routine 09/26/2023 5:50 AM POULTRY TRIMMER BASIC METABOLIC PANEL, S/P Routine 09/26/2023 5:50 AM POULTRY TRIMMER GLUCOSE POCT, B Routine 09/25/2023 8:06 PM POULTRY TRIMMER GLUCOSE POCT, B Routine 09/25/2023 5:32 PM POULTRY TRIMMER GLUCOSE POCT, B Routine 09/25/2023 11:12 AM POULTRY TRIMMER GLUCOSE POCT, B Routine 09/25/2023 7:47 AM POULTRY TRIMMER CBC WITH DIFFERENTIAL, B Routine 09/25/2023 7:41 AM POULTRY TRIMMER BASIC METABOLIC PANEL, S/P Routine 09/25/2023 7:41 AM POULTRY TRIMMER GLUCOSE POCT, B Routine 09/24/2023 9:04 PM POULTRY TRIMMER GLUCOSE POCT, B Routine 09/24/2023 4:51 PM POULTRY TRIMMER GLUCOSE POCT, B Routine 09/24/2023 11:28 AM POULTRY TRIMMER NURSING IMAGE EXAM Routine 09/24/2023 8: 51 AM POULTRY TRIMMER NURSING IMAGE EXAM Routine 09/24/2023 8: 50 AM POULTRY TRIMMER GLUCOSE POCT, B Routine 09/24/2023 7:24 AM POULTRY TRIMMER CBC NO CALL BACK, REFLEX T/S Routine 09/24/2023 5:18 AM POULTRY TRIMMER BASIC METABOLIC PANEL, S/P Routine 09/24/2023 5:18 AM POULTRY TRIMMER GLUCOSE POCT, B Routine 09/23/2023 8:04 PM POULTRY TRIMMER GLUCOSE POCT, B Routine 09/23/2023 5:26 PM POULTRY TRIMMER GLUCOSE POCT, B Routine 09/23/2023 1:12 PM POULTRY TRIMMER DX ABDOMEN PORTABLE ANTERIOR POSTERIOR 1 VIEW RAD - Routine (most inpatients and all outpatients) 09/23/2023 12:25 PM POULTRY TRIMMER GLUCOSE POCT, B Routine 09/23/2023 7:33 AM POULTRY TRIMMER CBC NO CALL BACK, REFLEX T/S Routine 09/23/2023 5:55 AM POULTRY TRIMMER BASIC METABOLIC PANEL, S/P Routine 09/23/2023 5:55 AM POULTRY TRIMMER GLUCOSE POCT, B Routine 09/22/2023 10:19 PM POULTRY TRIMMER GLUCOSE POCT, B Routine 09/22/2023 5:40 PM POULTRY TRIMMER GLUCOSE POCT, B Routine 09/22/2023 12:54 PM POULTRY TRIMMER GLUCOSE POCT, B Routine 09/22/2023 11:14 AM POULTRY TRIMMER GLUCOSE POCT, B Routine 09/22/2023 7:55 AM POULTRY TRIMMER HEPATIC FUNCTION PANEL, S Routine 09/22/2023 7:05 AM POULTRY TRIMMER CBC NO CALL BACK, REFLEX T/S Routine 09/22/2023 7:05 AM POULTRY TRIMMER BASIC METABOLIC PANEL, S/P Routine 09/22/2023 7:05 AM POULTRY TRIMMER GLUCOSE POCT, B Routine 09/21/2023 8:45 PM POULTRY TRIMMER GLUCOSE POCT, B Routine 09/21/2023 5:40 PM POULTRY TRIMMER GLUCOSE POCT, B Routine 09/21/2023 1:18 PM POULTRY TRIMMER GLUCOSE POCT, B Routine 09/21/2023 8:35 AM POULTRY TRIMMER CBC NO CALL BACK, REFLEX T/S Routine 09/21/2023 6:43 AM POULTRY TRIMMER MAGNESIUM, S Routine 09/21/2023 6:43 AM POULTRY TRIMMER PHOSPHORUS (INORGANIC), S Routine 09/21/2023 6:43 AM POULTRY TRIMMER BASIC METABOLIC PANEL, S/P Routine 09/21/2023 6:43 AM POULTRY TRIMMER GLUCOSE POCT, B Routine 09/20/2023 10:04 PM POULTRY TRIMMER GLUCOSE POCT, B Routine 09/20/2023 8:49 PM POULTRY TRIMMER MR BRAIN WITHOUT AND WITH IV CONTRAST RAD - Routine (most inpatients and all outpatients) 09/20/2023 6:24 PM POULTRY TRIMMER GLUCOSE POCT, B Routine 09/20/2023 1:00 PM POULTRY TRIMMER MN ARTHCS ASP/INJ MJR JT WO US Routine 09/20/2023 12:37 PM POULTRY TRIMMER Effusion Knee Right CRYSTAL ID, BF Timed 09/20/2023 12:34 PM POULTRY TRIMMER CELL COUNT AND DIFFERENTIAL, BF Timed 09/20/2023 12:34 PM POULTRY TRIMMER BACTERIA CULT, AEROBE/ANAEROBE+SUSC Timed 09/20/2023 12:34 PM POULTRY TRIMMER GRAM STAIN Timed 09/20/2023 12:34 PM POULTRY TRIMMER GLUCOSE POCT, B Routine 09/20/2023 7:47 AM POULTRY TRIMMER C-REACTIVE PROTEIN (CRP), S/P Routine 09/20/2023 6:18 AM POULTRY TRIMMER URIC ACID, S/P Routine 09/20/2023 6:18 AM POULTRY TRIMMER CBC NO CALL BACK, REFLEX T/S Routine 09/20/2023 6:18 AM POULTRY TRIMMER MAGNESIUM, S Routine 09/20/2023 6:18 AM POULTRY TRIMMER PHOSPHORUS (INORGANIC), S Routine 09/20/2023 6:18 AM POULTRY TRIMMER BASIC METABOLIC PANEL, S/P Routine 09/20/2023 6:18 AM POULTRY TRIMMER GLUCOSE POCT, B Routine 09/19/2023 9:[address] HEAD WITHOUT IV CONTRAST RAD - Emergent (Fastest; for the most critically ill patients) 09/19/2023 4:[address] HEAD NECK ANGIOGRAM WITH IV CONTRAST RAD - Emergent (Fastest; for the most critically ill patients) 09/19/2023 4:12 PM POULTRY TRIMMER GLUCOSE POCT, B Routine 09/19/2023 3:12 PM POULTRY TRIMMER GLUCOSE POCT, B Routine 09/19/2023 11:42 AM POULTRY TRIMMER GLUCOSE POCT, B Routine 09/19/2023 9:31 AM POULTRY TRIMMER GLUCOSE POCT, B Routine 09/19/2023 7:37 AM POULTRY TRIMMER MAGNESIUM, S Routine 09/19/2023 5:46 AM POULTRY TRIMMER PHOSPHORUS (INORGANIC), S Routine 09/19/2023 5:46 AM POULTRY TRIMMER CBC WITH DIFFERENTIAL, B Routine 09/19/2023 5:46 AM POULTRY TRIMMER BASIC METABOLIC PANEL, S/P Routine 09/19/2023 5:46 AM POULTRY TRIMMER GLUCOSE POCT, B Routine 09/18/2023 9:21 PM POULTRY TRIMMER GLUCOSE POCT, B Routine 09/18/2023 4:56 PM POULTRY TRIMMER BASIC METABOLIC PANEL, S/P Timed 09/18/2023 3:57 PM POULTRY TRIMMER PHOSPHORUS (INORGANIC), S Timed 09/18/2023 3:57 PM POULTRY TRIMMER MAGNESIUM, S Timed 09/18/2023 3:57 PM POULTRY TRIMMER GLUCOSE POCT, B Routine 09/18/2023 12:39 PM POULTRY TRIMMER DX ABDOMEN 1 VIEW RAD - Routine (most inpatients and all outpatients) 09/18/2023 10:10 AM POULTRY TRIMMER GLUCOSE POCT, B Routine 09/18/2023 7:47 AM POULTRY TRIMMER MAGNESIUM, S Routine 09/18/2023 5:16 AM POULTRY TRIMMER PHOSPHORUS (INORGANIC), S Routine 09/18/2023 5:16 AM POULTRY TRIMMER CBC WITH DIFFERENTIAL, B Routine 09/18/2023 5:16 AM POULTRY TRIMMER BASIC METABOLIC PANEL, S/P Routine 09/18/2023 5:16 AM POULTRY TRIMMER GLUCOSE POCT, B Routine 09/17/2023 9:00 PM POULTRY TRIMMER GLUCOSE POCT, B Routine 09/17/2023 5:15 PM POULTRY TRIMMER FL FLUORO LESS THAN 1 HOUR RAD - Routine (most inpatients and all outpatients) 09/17/2023 3:39 PM POULTRY TRIMMER SURGICAL PATHOLOGY Routine 09/17/2023 3: 21 PM POULTRY TRIMMER LDA ANE ENDOTRACHEAL AIRWAY Routine 09/17/2023 3:09 PM POULTRY TRIMMER GASTROENTEROLOGY IMAGE EXAM Routine 09/17/2023 2:40 PM POULTRY TRIMMER UPPER GI ENDOSCOPY Routine 09/17/2023 2: 36 PM POULTRY TRIMMER EGD (ESOPHAGEALGASTRODUODE NOSCOPY) Routine 09/17/2023 2:36 PM POULTRY TRIMMER GLUCOSE POCT, B Routine 09/17/2023 12:03 PM POULTRY TRIMMER DX ABDOMEN 1 VIEW RAD - Routine (most inpatients and all outpatients) 09/17/2023 9:38 AM POULTRY TRIMMER GLUCOSE POCT, B Routine 09/17/2023 7:54 AM POULTRY TRIMMER CBC WITH DIFFERENTIAL, B Routine 09/17/2023 7:26 AM POULTRY TRIMMER BASIC METABOLIC PANEL, S/P Routine 09/17/2023 7:26 AM POULTRY TRIMMER GLUCOSE POCT, B Routine 09/17/2023 3:37 AM POULTRY TRIMMER GLUCOSE POCT, B Routine 09/16/2023 9:07 PM POULTRY TRIMMER GLUCOSE POCT, B Routine 09/16/2023 7:06 PM POULTRY TRIMMER GLUCOSE POCT, B Routine 09/16/2023 6:22 PM POULTRY TRIMMER GLUCOSE POCT, B Routine 09/16/2023 5:17 PM POULTRY TRIMMER GLUCOSE POCT, B Routine 09/16/2023 4:49 PM POULTRY TRIMMER GLUCOSE POCT, B Routine 09/16/2023 12:59 PM POULTRY TRIMMER DX ABDOMEN 1 VIEW RAD - Routine (most inpatients and all outpatients) 09/16/2023 11:20 AM POULTRY TRIMMER GLUCOSE POCT, B Routine 09/16/2023 10:17 AM POULTRY TRIMMER GLUCOSE POCT, B Routine 09/16/2023 9:12 AM POULTRY TRIMMER BASIC METABOLIC PANEL, S/P Routine 09/16/2023 8:01 AM POULTRY TRIMMER CBC WITH DIFFERENTIAL, B Routine 09/16/2023 8:01 AM POULTRY TRIMMER CMV DNA DETECT/QUANT, P Routine 09/16/2023 5:14 AM POULTRY TRIMMER EBV DNA DETECT/QUANT, P Routine 09/16/2023 5:14 AM POULTRY TRIMMER GLUCOSE POCT, B Routine 09/15/2023 9:45 PM POULTRY TRIMMER GLUCOSE POCT, B Routine 09/15/2023 4:25 PM POULTRY TRIMMER GLUCOSE POCT, B Routine 09/15/2023 11:27 AM POULTRY TRIMMER TRANSPLANTATION SURG IMAGE EXAM Routine 09/15/2023 8:55 AM POULTRY TRIMMER GLUCOSE POCT, B Routine 09/15/2023 8:29 AM POULTRY TRIMMER DX ABDOMEN 1 VIEW RAD - Routine (most inpatients and all outpatients) 09/15/2023 8:24 AM POULTRY TRIMMER LACTATE DEHYDROGENASE (LD), S Routine 09/15/2023 5:05 AM POULTRY TRIMMER COMPREHENSIVE METABOLIC PANEL, S/P Routine 09/15/2023 5:05 AM POULTRY TRIMMER CBC WITH DIFFERENTIAL, B Routine 09/15/2023 5:05 AM POULTRY TRIMMER HAPTOGLOBIN, S Routine 09/15/2023 5:02 AM POULTRY TRIMMER DX ABDOMEN PORTABLE ANTERIOR POSTERIOR 1 VIEW RAD - Semiurgent (Fast; most ED patients; some inpatients) 09/14/2023 10:[address] ABDOMEN PELVIS WITH IV CONTRAST RAD - Semiurgent (Fast; most ED patients; some inpatients) 09/14/2023 9:20 PM POULTRY TRIMMER MICROSCOPIC MANUAL STAT 09/14/2023 8: 28 PM POULTRY TRIMMER DIPSTICK, U STAT 09/14/2023 8:28 PM POULTRY TRIMMER PH, U STAT 09/14/2023 8:28 PM POULTRY TRIMMER OSMOLALITY, U STAT 09/14/2023 8:28 PM POULTRY TRIMMER URINALYSIS WITH MICROSCOPIC STAT 09/14/2023 8:28 PM POULTRY TRIMMER INFLUENZA A, B, RSV, PCR, RAPID, V STAT 09/14/2023 8:28 PM POULTRY TRIMMER SARS CORONAVIRUS 2, PCR RAPID, V STAT 09/14/2023 8:28 PM POULTRY TRIMMER BACTERIAL CULTURE, AEROBIC + SUSC, URINE STAT 09/14/2023 8:28 PM POULTRY TRIMMER LACTATE DEHYDROGENASE (LD), S STAT 09/14/2023 8:18 PM POULTRY TRIMMER LACTATE FOR SEPSIS WITH REFLEX, POCT STAT 09/14/2023 8:14 PM POULTRY TRIMMER SPSMA RESULT Routine 09/14/2023 8:14 PM POULTRY TRIMMER URIC ACID, S/P STAT 09/14/2023 8:14 PM POULTRY TRIMMER PHOSPHORUS (INORGANIC), S STAT 09/14/2023 8:14 PM POULTRY TRIMMER BASIC METABOLIC PANEL, S/P STAT 09/14/2023 8:14 PM POULTRY TRIMMER CBC WITH DIFFERENTIAL, B STAT 09/14/2023 8:14 PM POULTRY TRIMMER BACTERIA / JOEL CULTURE, BLOOD STAT 09/14/2023 8:14 PM POULTRY TRIMMER BACTERIA / JOEL CULTURE, BLOOD STAT 09/14/2023 8:14 PM POULTRY TRIMMER ECG STAT 09/14/2023 7:57 PM POULTRY TRIMMER RETICULOCYTES, B Routine 09/14/2023 7:57 PM POULTRY TRIMMER CBC WITH DIFFERENTIAL, B Routine 09/10/2023 7:44 AM POULTRY TRIMMER Lymphoma Non Hodgkins (HCC) TRANSFUSE RED BLOOD CELLS Routine 09/04/2023 5:59 PM POULTRY TRIMMER Lymphoma Non Hodgkins (HCC) Anemia PREPARE RED BLOOD CELLS Routine 09/04/2023 3:16 PM POULTRY TRIMMER Lymphoma Non Hodgkins (HCC) Anemia ABORH, RBC Routine 09/04/2023 3:16 PM POULTRY TRIMMER TYPE AND SCREEN Routine 09/04/2023 3:16 PM POULTRY TRIMMER Lymphoma Non Hodgkins (HCC) Anemia CBC WITH DIFFERENTIAL, B Routine 09/04/2023 10:14 AM POULTRY TRIMMER Lymphoma Non Hodgkins (HCC) COMPREHENSIVE METABOLIC PANEL, S/P Routine 09/04/2023 10:13 AM POULTRY TRIMMER Lymphoma Non Hodgkins (HCC) CBC WITH DIFFERENTIAL, B Routine 08/26/2023 7:03 AM POULTRY TRIMMER Lymphoma Non Hodgkins (HCC) CBC WITH DIFFERENTIAL, B Routine 08/19/2023 8:05 AM POULTRY TRIMMER Lymphoma Non Hodgkins (HCC) GASTROENTEROLOGY IMAGE EXAM Routine 08/13/2023 2:10 PM POULTRY TRIMMER UPPER GI ENDOSCOPY Routine 08/13/2023 2: 06 PM POULTRY TRIMMER Lymphoma Non Hodgkins (HCC) EGD (ESOPHAGEALGASTRODUODE NOSCOPY) Routine 08/13/2023 2:06 PM POULTRY TRIMMER Lymphoma Non Hodgkins (HCC) MAGNESIUM, S Routine 08/12/2023 8:28 AM POULTRY TRIMMER Hypokalemia COMPREHENSIVE METABOLIC PANEL, S/P Routine 08/12/2023 8:28 AM POULTRY TRIMMER Lymphoma Non Hodgkins (HCC) CBC WITH DIFFERENTIAL, B Routine 08/12/2023 8:28 AM POULTRY TRIMMER Lymphoma Non Hodgkins (HCC) PET CT SKULL TO THIGH RAD - Routine (most inpatients and all outpatients) 08/09/2023 1:20 PM POULTRY TRIMMER Lymphoma Non Hodgkins (HCC) GLUCOSE POCT, B Routine 08/07/2023 11:49 AM POULTRY TRIMMER CBC WITHOUT DIFFERENTIAL, B Routine 08/07/2023 9:19 AM POULTRY TRIMMER COMPREHENSIVE METABOLIC PANEL, S/P Routine 08/07/2023 9:19 AM POULTRY TRIMMER PHOSPHORUS (INORGANIC), S Routine 08/07/2023 9:19 AM POULTRY TRIMMER MAGNESIUM, S Routine 08/07/2023 9:19 AM POULTRY TRIMMER GLUCOSE POCT, B Routine 08/07/2023 7:45 AM POULTRY TRIMMER GLUCOSE POCT, B Routine 08/06/2023 8:19 PM POULTRY TRIMMER GLUCOSE POCT, B Routine 08/06/2023 4:01 PM POULTRY TRIMMER GLUCOSE POCT, B Routine 08/06/2023 12:12 PM POULTRY TRIMMER GLUCOSE POCT, B Routine 08/06/2023 8:21 AM POULTRY TRIMMER MAGNESIUM, S Routine 08/06/2023 6:35 AM POULTRY TRIMMER BASIC METABOLIC PANEL, S/P Routine 08/06/2023 6:35 AM POULTRY TRIMMER CBC WITH DIFFERENTIAL, B Routine 08/06/2023 6:35 AM POULTRY TRIMMER HEMOGLOBIN, B Timed 08/06/2023 12:24 AM POULTRY TRIMMER TRANSFUSE RED BLOOD CELLS Routine 08/05/2023 9:29 PM POULTRY TRIMMER GLUCOSE POCT, B Routine 08/05/2023 8:03 PM POULTRY TRIMMER SPSMA RESULT Timed 08/05/2023 7:35 PM POULTRY TRIMMER HAPTOGLOBIN, S Timed 08/05/2023 7:35 PM POULTRY TRIMMER BASIC METABOLIC PANEL, S/P Timed 08/05/2023 7:35 PM POULTRY TRIMMER IRON AND TOT IRON-BINDING CAPACITY, S/P Timed 08/05/2023 7:35 PM POULTRY TRIMMER FERRITIN, S Timed 08/05/2023 7:35 PM POULTRY TRIMMER LACTATE DEHYDROGENASE (LD), S Timed 08/05/2023 7:35 PM POULTRY TRIMMER RETICULOCYTE PROFILE, B Timed 08/05/2023 7:35 PM POULTRY TRIMMER CBC WITH DIFFERENTIAL, B Timed 08/05/2023 7:35 PM POULTRY TRIMMER SOLUBLE TRANSFERRIN RECEPTOR (STFR), S Routine 08/05/2023 7:30 PM POULTRY TRIMMER NURSING IMAGE EXAM Routine 08/05/2023 5: 38 PM POULTRY TRIMMER NURSING IMAGE EXAM Routine 08/05/2023 5: 38 PM POULTRY TRIMMER NURSING IMAGE EXAM Routine 08/05/2023 5: 38 PM POULTRY TRIMMER NURSING IMAGE EXAM Routine 08/05/2023 5: 38 PM POULTRY TRIMMER TRANSFUSE RED BLOOD CELLS Routine 08/05/2023 3:27 PM POULTRY TRIMMER BACTERIA / JOEL CULTURE, BLOOD STAT 08/05/2023 3:[address] CHEST ANGIOGRAM AND PULMONARY ARTERIES WITH IV CONTRAST RAD - Semiurgent (Fast; most ED patients; some inpatients) 08/05/2023 2:[address] ABDOMEN PELVIS WITH IV CONTRAST RAD - Routine (most inpatients and all outpatients) 08/05/2023 2:24 PM POULTRY TRIMMER LACTATE, POCT, B STAT 08/05/2023 1:38 PM POULTRY TRIMMER BACTERIA / JOEL CULTURE, BLOOD STAT 08/05/2023 1:36 PM POULTRY TRIMMER PROTHROMBIN TIME (PT), P STAT 08/05/2023 1:35 PM POULTRY TRIMMER PREPARE RED BLOOD CELLS Routine 08/05/2023 1:06 PM POULTRY TRIMMER PREPARE RED BLOOD CELLS Routine 08/05/2023 1:06 PM POULTRY TRIMMER LIPASE, S/P STAT 08/05/2023 1:06 PM POULTRY TRIMMER HEPATIC FUNCTION PANEL, S STAT 08/05/2023 1:06 PM POULTRY TRIMMER TYPE AND SCREEN STAT 08/05/2023 1:06 PM POULTRY TRIMMER CBC WITH DIFFERENTIAL, B STAT 08/05/2023 1:06 PM POULTRY TRIMMER BASIC METABOLIC PANEL, S/P STAT 08/05/2023 1:06 PM POULTRY TRIMMER ECG STAT 08/05/2023 12:31 PM POULTRY TRIMMER HEMATOLOGY/ONCOLOGY - BLOOD, EXTERNAL LAB RESULTS Routine 08/05/2023 9:15 AM POULTRY TRIMMER HEMATOLOGY/ONCOLOGY - BLOOD, EXTERNAL LAB RESULTS Routine 07/29/2023 9:30 AM POULTRY TRIMMER IR IMPLANTED VASCULAR ACCESS DEVICE PLACEMENT RAD - Routine (most inpatients and all outpatients) 07/22/2023 10:31 AM POULTRY TRIMMER Lymphoma Non Hodgkins (HCC) Other Duct Layer Supervisor Current Drug Therapy COMPREHENSIVE METABOLIC PANEL, S/P Routine 07/22/2023 9:25 AM POULTRY TRIMMER Lymphoma Non Hodgkins (HCC) CBC WITH DIFFERENTIAL, B Routine 07/22/2023 9:25 AM POULTRY TRIMMER Lymphoma Non Hodgkins (HCC) OUTSIDE CT BODY Routine 07/17/2023 9:00 PM POULTRY TRIMMER from Last 3 Months Results * Lactate, Whole Blood (10/05/2023 12:01 PM POULTRY TRIMMER) Only the most recent of2 resultswithin the time period is included. [facility] Lactate, B 1.7 0.5 - 2.2 mmol/L 10/05/2023 12:15 PM POULTRY TRIMMER STMA Blood (Blood, Arterial) 10/05/2023 12:01 PM POULTRY TRIMMER 10/05/2023 12:06 PM POULTRY TRIMMER Rich Garcia M.D. LAB BLOOD NON ADD-ON Performing Organization Address City/[facility]/ZIP Co de Phone Number [facility] [address] [place] [address], [facility] [address] [place] [address] * Patient Status (10/05/2023 12:01 PM POULTRY TRIMMER) Only the most recent of5 resultswithin the time period is included. [facility] FIO2 0.30 0.21=AIR 10/05/2023 12: 06 PM POULTRY TRIMMER STMA Device Vent 10/05/2023 12: 06 PM POULTRY TRIMMER STMA Blood 10/05/2023 12:0 1 PM POULTRY TRIMMER 10/05/2023 12:06 PM POULTRY TRIMMER Rich Garcia M.D. LAB BLOOD NON ADD-ON Performing Organization Address City/[facility]/ZIP Co de Phone Number [facility] [address] [place] [address], [facility] [address] [place] [address] * (ABNORMAL) Blood Gas with Coox, Arterial (10/05/2023 12:01 PM POULTRY TRIMMER) Only the most recent of6 resultswithin the time period is included. pO2 128(H) 83 - 108 mm Hg 10/05/2023 12:15 PM POULTRY TRIMMER STMA pCO2 32(L) 35 - 48 mm Hg 10/05/2023 12:15 PM POULTRY TRIMMER STMA pH 7.36 7.35 - 7.45 pH 10/05/2023 12:15 PM POULTRY TRIMMER STMA Base Excess -8(L) -2 - 3 mmol/L 10/05/2023 12:15 PM POULTRY TRIMMER STMA HCO3 18(L) 22 - 26 mmol/L 10/05/2023 12:15 PM POULTRY TRIMMER STMA Hemoglobin, Venous 10.1(L) 13.2 - 16.6 g/dL 10/05/2023 12:15 PM POULTRY TRIMMER STMA O2Hb 97.1 94.0 - 98.0 % 10/05/2023 12:15 PM POULTRY TRIMMER STMA COHb 3.0(H) <3.0 % 10/05/2023 12:15 PM POULTRY TRIMMER STMA MetHb <1.0 <1.5 % 10/05/2023 12:15 PM POULTRY TRIMMER STMA CtO2 14.0(L) 18.0 - 21.0 vol % 10/05/2023 12:15 PM POULTRY TRIMMER STMA Arterial Sample Site Art Line 10/05/2023 12:15 PM POULTRY TRIMMER STMA Comment:Shai's test not don e. Blood (Blood, Arterial) 10/05/2023 12:01 PM POULTRY TRIMMER 10/05/2023 12:06 PM POULTRY TRIMMER Rich Garcia M.D. LAB BLOOD NON ADD-ON [facility] [address] [place] [address], [facility] STMA [facility] [address] [place] [address] * (ABNORMAL) Glucose, POCT (10/05/2023 11:45 AM POULTRY TRIMMER) Only the most recent of102 resultswithin the time period is included. Glucose, POCT, B 157(H) 70 - 140 mg/dL 10/05/2023 11:47 AM POULTRY TRIMMER PCLX Site ARTLINE 10/05/2023 11:47 AM POULTRY TRIMMER PCLX Last Intake NPO 10/05/2023 11:47 AM POULTRY TRIMMER PCLX Blood 10/05/2023 11:4 5 AM POULTRY TRIMMER 10/05/2023 11:48 AM POULTRY TRIMMER Unknown Provider LAB POCT ORDERABLES- MANUAL POC [facility] [address] [place] [address], [facility] PCLX [facility] POC [address] [place] [address] * Transfuse Red Blood Cells : (10/05/2023 11:28 AM POULTRY TRIMMER) Only the most recent of6 resultswithin the time period is included. Daniel Pace D.O., M.S. BLOOD TRANSFU APRIL ORDERABLES * Heparin Anti-Xa Assay (10/05/2023 7:21 AM POULTRY TRIMMER) Heparin Anti-Xa, P 0.24 IU/mL 2023 8:48 AM POULTRY TRIMMER DTL Comment: UFH therapeutic range: ?? 0.30-0.70 [...] (UFH). Blood (Blood, Venous) 10/05/2023 7:21 AM POULTRY TRIMMER 10/05/2023 7:44 AM POULTRY TRIMMER Kimberley Sierra APRN, C.N.P., D.N.P. LAB BLOOD NON ADD-ON [facility] [address] [place] [address], [facility] DTL [facility] [address] [place] [address] * DX Chest Portable 1 View (10/05/2023 6:07 AM POULTRY TRIMMER) Only the most recent of3 resultswithin the time period is included. Anatomical Region Laterality Modality Chest, Thoracic RST LOS, Tho racic ARZ LOS, Thoracic FLA LOS N/A Digital Radiography Impressions 10/05/2023 8:40 AM POULTRY TRIMMER Stable interstitial changes in both lungs since 10/04/2023. This could be due to fibrosis/edema. ET and enteric tubes. Right central line extends superiorly into the neck as previously. Right IJ port catheter tip near the SVC/RA junction. Degenerative changes thoracic spine. Aortic calcification. Narrative 10/05/2023 8:40 AM POULTRY TRIMMER EXAM: ??DX CHEST PORTABLE 1 VIEW Procedure Note Luis Antonio Jennings M.D. - 10/05/2023 EXAM: DX CHEST PORTABLE 1 VIEW IMPRESSION: Stable interstitial changes in both lungs since 10/04/2023. This could bedue to fibrosis/edema. ET and enteric tubes. Right central line extendssuperiorly into the neck as previously. Right IJ port catheter tip nearthe SVC/RA junction. Degenerative changes thoracic spine. Aortic calcification. Eliecer Teague APRNNMark., D.N.P. IMG DIAGNOSTIC IMAGING PROCEDURES * (ABNORMAL) Calcium, Ionized (10/05/2023 4:28 AM POULTRY TRIMMER) Only the most recent of4 resultswithin the time period is included. Calcium, Ionized, B 4.56(L) 4.65 - 5.30 mg/dL 10/05/2023 4:51 AM POULTRY TRIMMER [facility] Blood 10/05/2023 4:28 AM POULTRY TRIMMER 10/05/2023 4:34 AM POULTRY TRIMMER Kimberley A Rigo LOGISTICS RESEARCH ENGINEER, C.N.Ash., D.N.P. LAB BLOOD NON ADD-ON Performing Organization Address City/[facility]/ZIP Co de Phone Number [facility] [address] [place] [address], [facility] STMA [facility] [address] [place] [address] * Cystatin C with Estimated GFR (10/05/2023 4:27 AM POULTRY TRIMMER) Pathologist [facility] eGFR by Cystatin C 74 >60 mL/min/BSA 10/05/2023 5:54 AM POULTRY TRIMMER DTL Comment: Estimated GFR calculated using the [...] 0.67 - 1.21 mg/L 10/05/2023 5:54 AM POULTRY TRIMMER DTL Blood (Blood, Venous) 10/05/2023 4:27 AM POULTRY TRIMMER 10/05/2023 5:35 AM POULTRY TRIMMER Eliecer Teague APRNN.P., D.N.P. LAB BLOOD ADD-ON Performing Organization Address City/[facility]/ZIP Co de Phone Number [facility] [address] [place] [address], [facility] DTL [facility] [address] [place] [address] * (ABNORMAL) CBC without Differential (10/05/2023 4:27 AM POULTRY TRIMMER) Only the most recent of4 resultswithin the time period is included. Hemoglobin 8.7(L) 13.2 - 16.6 g/dL 10/05/2023 5:31 AM POULTRY TRIMMER DTL Hematocrit 25.8(L) 38.3 - 48.6 % 10/05/2023 5:31 AM POULTRY TRIMMER DTL Erythrocytes 2.80(L) 4.35 - 5.65 x10(12)/L 10/05/2023 5:31 AM POULTRY TRIMMER DTL MCV 92.1 78.2 - 97.9 fL 10/05/2023 5:31 AM POULTRY TRIMMER DTL RBC Distrib Width 16.7(H) 11.8 - 14.5 % 10/05/2023 5:31 AM POULTRY TRIMMER DTL Platelet Count 165 135 - 317 x10(9)/L 10/05/2023 5:31 AM POULTRY TRIMMER DTL Leukocytes 6.0 3.4 - 9.6 x10(9)/L 10/05/2023 5:31 AM POULTRY TRIMMER DTL Blood (Blood, Venous) 10/05/2023 4:27 AM POULTRY TRIMMER 10/05/2023 5:22 AM POULTRY TRIMMER Daniel Pace D.O., M.S. LAB BLOOD ADD -ON Performing Organization Address City/[facility]/ZIP Co de Phone Number [facility] [address] [place] [address] * Phosphorus Inorganic (10/05/2023 4:27 AM POULTRY TRIMMER) Only the most recent of14 resultswithin the time period is included. [facility] Phosphorus (Inorganic), S 3.8 2.5 - 4.5 mg/dL 10/05/2023 5:54 AM POULTRY TRIMMER DTL Blood (Blood, Venous) 10/05/2023 4:27 AM POULTRY TRIMMER 10/05/2023 5:35 AM POULTRY TRIMMER Kimberley Sierra APRN, C.N.P., D.N.P. LAB BLOOD ADD-ON Performing Organization Address City/[facility]/ZIP Co de Phone Number [facility] [address] [facility] [address] [place] [address] * Magnesium (10/05/2023 4:27 AM POULTRY TRIMMER) Only the most recent of17 resultswithin the time period is included. Magnesium, S 1.8 1.7 - 2.3 mg/dL 10/05/2023 5:54 AM POULTRY TRIMMER DTL Blood (Blood, Venous) 10/05/2023 4:27 AM POULTRY TRIMMER 10/05/2023 5:35 AM POULTRY TRIMMER Lola Teague APRN.N.P., D.N.P. LAB BLOOD ADD-ON Performing Organization Address City/[facility] Co de Phone Number [facility] [address] [place] [address] * (ABNORMAL) Lactate (10/05/2023 4:27 AM POULTRY TRIMMER) Only the most recent of3 resultswithin the time period is included. Lactate, P 3.5(H) 0.5 - 2.2 mmol/L 10/05/2023 4:46 AM POULTRY TRIMMER STMA Blood (Blood, Venous) 10/05/2023 4:27 AM POULTRY TRIMMER 10/05/2023 4:34 AM POULTRY TRIMMER Lola Teague APRN.N.P., D.N.P. LAB BLOOD NON ADD-ON Performing Organization Address [facility] Co de Phone Number [facility] [address] STMA [facility] [address] [place] [address] * (ABNORMAL) Basic Metabolic Panel (10/05/2023 4:27 AM POULTRY TRIMMER) Only the most recent of26 resultswithin the time period is included. Potassium, S 4.1 3.6 - 5.2 mmol/L 10/05/2023 5:54 AM POULTRY TRIMMER DTL Sodium, S 136 135 - 145 mmol/L 10/05/2023 5:54 AM POULTRY TRIMMER DTL Chloride, S 107 98 - 107 mmol/L 10/05/2023 5:54 AM POULTRY TRIMMER DTL Bicarbonate, S 16(L) 22 - 29 mmol/L 10/05/2023 5:54 AM POULTRY TRIMMER DTL Anion Gap 13 7 - 15 10/05/2023 5:54 AM POULTRY TRIMMER DTL BUN (Blood Urea Nitrogen), S 27(H) 8 - 24 mg/dL 10/05/2023 5:54 AM POULTRY TRIMMER DTL Creatinine 0.81 0.74 - 1.35 mg/dL 10/05/2023 5:54 AM POULTRY TRIMMER DTL Estimated GFR (eGFR) >90 >=60 mL/min/BSA 10/05/2023 5:54 AM POULTRY TRIMMER DTL Comment: Estimated GFR calculated using the 2020 CKD_EPI creatinine equation. Calcium, Total, S 7.2(L) 8.8 - 10.2 mg/dL 10/05/2023 5:54 AM POULTRY TRIMMER DTL Glucose, S 112 70 - 140 mg/dL 10/05/2023 5:54 AM POULTRY TRIMMER DTL Blood (Blood, Venous) 10/05/2023 4:27 AM POULTRY TRIMMER 10/05/2023 5:35 AM POULTRY TRIMMER Kimberley Sierra APRN, C.N.P., D.N.P. LAB BLOOD ADD-ON Performing Organization Address City/[facility]/ZIP Co de Phone Number [facility] [address] [place] [address], [facility] [address] [place] [address] * Sodium, B (10/05/2023 12:52 AM POULTRY TRIMMER) Only the most recent of2 resultswithin the time period is included. Sodium, B 136 135 - 145 mmol/L 10/05/2023 12:59 AM POULTRY TRIMMER STMA Blood (Blood, Arterial Line) 10/05/2023 12:52 AM POULTRY TRIMMER 10/05/2023 12:52 AM POULTRY TRIMMER Carolee Ferguson M.D. LAB BLOOD NON ADD-ON [facility] [address] [place], [place] [address] [place] [address] 200 [place] [address] * (ABNORMAL) Potassium, Blood (10/05/2023 12:52 AM POULTRY TRIMMER) Only the most recent of2 resultswithin the time period is included. Pathologist [facility] Potassium, B 3.5(L) 3.6 - 5.2 mmol/L 10/05/2023 12:59 AM POULTRY TRIMMER [facility] Blood (Blood, Arterial Line) 10/05/2023 12:52 AM POULTRY TRIMMER 10/05/2023 12:52 AM POULTRY TRIMMER Carolee Ferguson M.D. LAB BLOOD NON ADD-ON [facility] [address] [place], [place] [address] [address] [place] [address] * Glucose, Whole Blood (10/05/2023 12:52 AM POULTRY TRIMMER) Only the most recent of2 resultswithin the time period is included. [facility] Glucose 117 70 - 140 mg/dL 10/05/2023 12:59 AM POULTRY TRIMMER [facility] Blood (Blood, Arterial Line) 10/05/2023 12:52 AM POULTRY TRIMMER 10/05/2023 12:52 AM POULTRY TRIMMER Carolee Ferguson M.D. LAB BLOOD ADD-ON [facility] [address] [place] [address], [facility] [address] [place] [address] * APTT (Activated Partial Thromboplastin Time) (10/04/2023 10:08 PM POULTRY TRIMMER) [facility] Activated Partial Thrombopl Time, P 27 25 - 37 sec 10/04/2023 10:23 PM POULTRY TRIMMER [facility] Blood (Blood, Venous) 10/04/2023 10:08 PM POULTRY TRIMMER 10/04/2023 10:23 PM POULTRY TRIMMER Kimberley Sierra APRN, C.N.P., D.N.P. LAB BLOOD ADD-ON [facility] [address] [place] [address] * (ABNORMAL) Thromboelastograph, Kaolin, Blood (10/04/2023 9:59 PM POULTRY TRIMMER) Only the most recent of2 resultswithin the time period is included. R, Kaolin, TEG 6.1 4.0 - 9.0 min 10/04/2023 10:56 PM POULTRY TRIMMER STMA K, Kaolin, TEG 1.1 1.0 - 1.8 min 10/04/2023 10:56 PM POULTRY TRIMMER STMA Angle, Kaolin, TEG 74.9 64.0 - 78.1 degrees 10/04/2023 10:56 PM POULTRY TRIMMER STMA MA, Kaolin, TEG 74.4(H) 57.1 - 72.6 mm 10/04/2023 10:56 PM POULTRY TRIMMER STMA Ly30, Kaolin, TEG 0.2 0.0 - 4.8 % 10/04/2023 10:56 PM POULTRY TRIMMER STMA Blood (Blood, Venous) 10/04/2023 9:59 PM POULTRY TRIMMER 10/04/2023 10:04 PM POULTRY TRIMMER Daniel Pace D.O., M.SJohanna LAB BLOOD NON ADD-ON [facility] [address] [place] [address], [facility] [address] [place] [address] * US Upper Extremity Veins Right (10/04/2023 8:40 PM POULTRY TRIMMER) Anatomical Region Laterality Modality Upper Extremity, Ultrasound RST LOS, Ultrasound ARZ LOS, Ultrasound FLA LOS Right Ultrasound Impressions 10/05/2023 6:33 AM POULTRY TRIMMER 1. Right axillary venous catheter with nonocclusive thrombin cast. 2. 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 3. The right internal jugular, innominate, and subclavian veins were obscured by overlying bandages. Findings were discussed [place] [id number] at 10:00PM on 10/04/2023. Narrative 10/05/2023 6:33 AM POULTRY TRIMMER EXAM: US UPPER EXTREMITY VEINS RIGHT Exam [...] and management can be found on the [employer] site. Link [email or web address] Procedure Note Martinez Flowers M.D. - 10/05/2023 [...] thrombosis and management can be found on the[employer] site. [email or web address] IMPRESSION: 1. Right axillary venous catheter with nonocclusive thrombin cast. 2. 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 3. The right internal jugular, innominate, and subclavian veins wereobscured by overlying bandages. Findings were discussed with Kimberley Sierra [place] [id number] at 10:00PMon 10/04/2023. Kimberley Sierra APRN, C.N.P., D.N.P. [facility] PROCEDURES * (ABNORMAL) Urinalysis, Dipstick (10/04/2023 6:39 PM POULTRY TRIMMER) [facility] Glucose, U 100(A) Negative mg/dL 10/04/2023 7:46 PM POULTRY TRIMMER STMA Comment: ----ADDITIONAL INFORMATION---- This test has been modified from the credit operations specialist's instructions. Its performance characteristics were determined by [facility] in a manner consistent with CLIA requirements. This test has not been cleared or approved by the U.S. Food and Drug Administration. Ketone, U Negative Negative mg/dL 10/04/2023 7:46 PM POULTRY TRIMMER STMA Comment: ----ADDITIONAL INFORMATION---- This test has been modified from the credit operations specialist's instructions. Its performance characteristics were determined by [facility] in a manner consistent with CLIA requirements. This test has not been cleared or approved by the U.S. Food and Drug Administration. pH, U 5.0 5.0 - 8.0 pH 10/04/2023 7:46 PM POULTRY TRIMMER STMA Comment: ----ADDITIONAL INFORMATION---- This test has been modified from the credit operations specialist's instructions. Its performance characteristics were determined by [facility] in a manner consistent with CLIA requirements. This test has not been cleared or approved by the U.S. Food and Drug Administration. Protein, U 100(A) Negative mg/dL 10/04/2023 7:46 PM POULTRY TRIMMER STMA Comment: ----ADDITIONAL INFORMATION---- This test has been modified from the credit operations specialist's instructions. Its performance characteristics were determined by [facility] in a manner consistent with CLIA requirements. This test has not been cleared or approved by the U.S. Food and Drug Administration. Blood, U Negative Negative 10/04/2023 7:46 PM POULTRY TRIMMER STMA Comment: ----ADDITIONAL INFORMATION---- This test has been modified from the credit operations specialist's instructions. Its performance characteristics were determined by [facility] in a manner consistent with CLIA requirements. This test has not been cleared or approved by the U.S. Food and Drug Administration. Nitrite, U Negative Negative 10/04/2023 7:46 PM POULTRY TRIMMER STMA Comment: ----ADDITIONAL INFORMATION---- This test has been modified from the credit operations specialist's instructions. Its performance characteristics were determined by [facility] in a manner consistent with CLIA requirements. This test has not been cleared or approved by the U.S. Food and Drug Administration. Leukocyte, U Negative Negative 10/04/2023 7:46 PM POULTRY TRIMMER STMA Comment: ----ADDITIONAL INFORMATION---- This test has been modified from the credit operations specialist's instructions. Its performance characteristics were determined by [facility] in a manner consistent with CLIA requirements. This test has not been cleared or approved by the U.S. Food and Drug Administration. Urine (Urine, Midstream) 10/04/2023 6:39 PM POULTRY TRIMMER 10/04/2023 7:43 PM POULTRY TRIMMER Eliecer Ortega APRNNGovind LAB URINE [address] [place] [address] [place] [address], [facility] [address] [place] [address] * (ABNORMAL) Troponin T, 2h/6h, 5th Gen (10/04/2023 5:57 PM POULTRY TRIMMER) Troponin T, 2 hr, 5th gen 76(H) <=15 ng/L 10/04/2023 6:26 PM POULTRY TRIMMER STMA 2H Delta 2 ng/L 10/04/2023 6:26 PM POULTRY TRIMMER STMA 2H Delta Interp Not Changing 10/04/2023 6:26 PM POULTRY TRIMMER STMA Troponin T, 6 hr, 5th gen CANCELED ng/L 10/04/2023 6:26 PM POULTRY TRIMMER STMA Comment:Result canceled by t he ancillary. 6H Delta CANCELED ng/L 10/04/2023 6:18 PM POULTRY TRIMMER STMA Comment:Result canceled by domi osorio ancillary. 6H Delta % CANCELED % 10/04/2023 6:18 PM POULTRY TRIMMER STMA Comment:Result canceled by domi osorio ancillary. Blood (Blood, Arterial) 10/04/2023 5:57 PM POULTRY TRIMMER 10/04/2023 6:01 [address]LTRY TRIMMER N[address]ative [facility] - 10/04/2023 6:26 PM POULTRY TRIMMER Specimen Information: Specimen ID: [id number] Specimen Type: Blood Specimen Collection Start Date: 10/04/2023 ??5:57 PM Specimen Received Date: 10/04/2023 ??6:01 PM Specimen ID: [id number] Specimen Type: Blood Specimen Collection Start Date: 10/04/2023 ??6:25 PM Specimen Received Date: 10/04/2023 ??6:25 PM Juliocesar Hernandez APRN, C.N.PJohanna LAB BLOOD TROP ONIN [facility] [address] [place] [address], [facility] [address] [place] [address] * [place] INS NON-JEFRY CVC >5YR, LDA ANE CENTRAL LINE TRIPLE LUMEN, MC ANE CENTRAL LINE GENERIC PERFORMABLE (10/04/2023 4:25 PM POULTRY TRIMMER) Narrative Jeaneth Gonzalez M.D. - 10/04/2023 4:25 PM POULTRY TRIMMER Mary New APRN, C.N.P. ? 10/04/2023 ??4:30 [...] * ECG 12 Lead (10/04/2023 4:17 PM POULTRY TRIMMER) Only the most recent of6 resultswithin the time period is included. Ventricular Rate ECG/Min 109 BPM MUSE [place] Interval 162 ms MUSE QRSD Interval 94 ms MUSE QT Interval 344 ms MUSE QTC Interval 463 ms MUSE P Ford 52 degrees MUSE R Ford 76 degrees MUSE T Wave Ford 63 degrees MUSE 10/04/2023 4:17 PM POULTRY TRIMMER 10/04/2023 4:20 PM POULTRY TRIMMER Impressions MUSE - 10/04/2023 4:20 PM POULTRY TRIMMER Sinus tachycardia Nonspecific ST and T wave abnormality When compared with ECG of 04-OCT-2023 08:16, Premature atrial complexes are no longer present Reviewed by Marito Fairbanks III, CRAT Narrative Procedure Note Dionicio Kelley M.D. - 10/04/2023 IMPRESSION: Sinus tachycardia Nonspecific ST and T wave abnormality When compared with ECG of 04-OCT-2023 08:16, Premature atrial complexes are no longer present Reviewed by Marito Fairbanks III, CRAT Eliecer Ortega APRNNJohannaP. ECG ORDERABLES Performing Organization Address [facility]/ZIP Co de Phone Number MUSE NA * (ABNORMAL) Troponin T, Baseline, 5th gen (10/04/2023 3:49 PM POULTRY TRIMMER) Troponin T, Baseline, 5th gen 74(H) <=15 ng/L 10/04/2023 4:17 PM POULTRY TRIMMER STMA Blood (Blood, Arterial) 10/04/2023 3:49 PM POULTRY TRIMMER 10/04/2023 3:54 PM POULTRY TRIMMER Eliecer Ortega APRNNJohannaP. LAB BLOOD TROP ONIN Performing Organization Address [facility] Co de Phone Number [facility] [address] [place] [address], [facility] [address] [place] [address] * (ABNORMAL) Hepatic Function Panel (10/04/2023 3:49 PM POULTRY TRIMMER) Only the most recent of4 resultswithin the time period is included. Bilirubin, Total, S 0.9 0.0 - 1.2 mg/dL 10/04/2023 5:04 PM POULTRY TRIMMER DTL Bilirubin, Direct, S 0.7(H) 0.0 - 0.3 mg/dL 10/04/2023 5:04 PM POULTRY TRIMMER DTL Aspartate Aminotransferase (AST), S 27 8 - 48 U/L 10/04/2023 5:04 PM POULTRY TRIMMER DTL Alanine Aminotransferase (ALT), S 16 7 - 55 U/L 10/04/2023 5:04 PM POULTRY TRIMMER DTL Alkaline Phosphatase, S 114 40 - 129 U/L 10/04/2023 5:31 PM POULTRY TRIMMER DTL Albumin, S 2.6(L) 3.5 - 5.0 g/dL 10/04/2023 5:04 PM POULTRY TRIMMER DTL Protein, Total, S 4.2(L) 6.3 - 7.9 g/dL 10/04/2023 5:04 PM POULTRY TRIMMER DTL Blood (Blood, Venous) 10/04/2023 3:49 PM POULTRY TRIMMER 10/04/2023 4:29 PM POULTRY TRIMMER Juliocesar Hernandez APRN C.N.P. LAB BLOOD ADD- ON Performing Organization Address City/[facility]/ZIP Co de Phone Number [address] [address], [facility] DTL [address] [address] * (ABNORMAL) Prothrombin Time (PT) (10/04/2023 3:49 PM POULTRY TRIMMER) Only the most recent of4 resultswithin the time period is included. Prothrombin Time, P 14.6(H) 9.4 - 12.5 sec 10/04/2023 4:27 PM POULTRY TRIMMER ST[facility] INR 1.3 0.9 - 1.1 10/04/2023 4:27 PM POULTRY TRIMMER STMA Comment: ----ADDITIONAL INFORMATION---- Standard intensity warfarin therapeutic range: 2.0 to 3.0 ?? High intensity warfarin therapeutic range: 2.5 to 3.5 Blood (Blood, Venous) 10/04/2023 3:49 PM POULTRY TRIMMER 10/04/2023 3:54 PM POULTRY TRIMMER Juliocesar Hernandez APRN, C.N.P. LAB BLOOD ADD- ON Performing Organization Address City/[facility]/ZIP Co de Phone Number [facility] [address] [place] [address], [facility] STMA [address] [address] * [place] ARTL CATH/CNULA MONITOR PERC, LDA ANE ARTERIAL LINE INSERTION (10/04/2023 1:45 PM POULTRY TRIMMER) Narrative Ronald De Paz M.D. - 10/04/2023 1:45 PM POULTRY TRIMMER Jose De Jesus Felix M.D. ? 10/04/2023 [...] fellow participated in the procedure, and the group segment consultant was present for the entire procedure. Ronald De Paz M.D. PROCEDURE/MINOR STEPHAN GICAL ORDERABLES * LDA ANE ENDOTRACHEAL AIRWAY (10/04/2023 1:19 PM POULTRY TRIMMER) Narrative Keena Diggs APRN, CRNA - 10/04/2023 1:19 PM POULTRY TRIMMER Keena Diggs APRN, CRNA ? 10/04/2023 ??1:49 [...] ETT location: oral VL device: glide scope [place] scope blade size: 4 Tube size: 7.5 [...] ES * Critical Care (10/04/2023 10:29 AM POULTRY TRIMMER) Narrative Jayna Albert M.D. - 10/04/2023 10:29 AM POULTRY TRIMMER Jayna Albert M.D. ? 10/04/2023 11:19 AM [...] Pelvis with IV Contrast (10/04/2023 9:56 AM POULTRY TRIMMER) Only the most recent of3 resultswithin the time period is included. Anatomical Region Laterality Modality Abdomen, Pelvis, Abdominal R ST LOS, Abdominal ARZ LOS, Abdominal FLA LOS N/A Computed Tomograp hy, Computed Tomography 10/04/2023 9:47 AM POULTRY TRIMMER Impressions 10/04/2023 10:29 AM POULTRY TRIMMER 1. Massive portal venous gas and gas [...] Critical findings discussed with Jayna Albert M.D. ([id number]) at 10:20 AM on 10/04/2023. Narrative 10/04/2023 10:29 AM POULTRY TRIMMER EXAM: ??CT ABDOMEN PELVIS WITH IV CONTRAST [...] Critical findings discussed with Jayna Albert M.D. ([id number]) at 10:20 Ember 10/04/2023. Jayna Albert M.D. IMG CT PROCEDURES * Lactate for Sepsis with Reflex, POCT (10/04/2023 8:41 AM POULTRY TRIMMER) Only the most recent of2 resultswithin the time period is included. [facility] Lactate, POCT 1.80 0.50 - 2.20 mmol/L 10/04/2023 9:05 AM POULTRY TRIMMER PCLX Blood (Blood, Venous) 10/04/2023 8:41 AM POULTRY TRIMMER 10/04/2023 8:41 AM POULTRY TRIMMER Jayna Albert M.D. LAB POCT ORDERABL ES - DEVICE POC [facility] [address] [place] [address], [facility] PCLX [facility] POC [address] [place] [address] * (ABNORMAL) CBC with Differential, Blood (10/04/2023 8:41 AM POULTRY TRIMMER) Only the most recent of21 resultswithin the time period is included. [facility] Hemoglobin 8.9(L) 13.2 - 16.6 g/dL 10/04/2023 8:59 AM POULTRY TRIMMER ST[facility] Hematocrit 27.9(L) 38.3 - 48.6 % 10/04/2023 8:59 AM POULTRY TRIMMER STMA Erythrocytes 3.02(L) 4.35 - 5.65 x10(12)/L 10/04/2023 8:59 AM POULTRY TRIMMER ST[facility] MCV 92.4 78.2 - 97.9 fL 10/04/2023 8:59 AM POULTRY TRIMMER ST[facility] RBC Distrib Width 16.5(H) 11.8 - 14.5 % 10/04/2023 8:59 AM POULTRY TRIMMER ST[facility] Platelet Count 152 135 - 317 x10(9)/L 10/04/2023 8:59 AM POULTRY TRIMMER ST[facility] Leukocytes 2.9(L) 3.4 - 9.6 x10(9)/L 10/04/2023 8:59 AM POULTRY TRIMMER ST[facility] Neutrophils 2.40 1.56 - 6.45 x10(9)/L 10/04/2023 8:59 AM POULTRY TRIMMER [facility] Lymphocytes 0.19(L) 0.95 - 3.07 x10(9)/L 10/04/2023 8:59 AM [employer] [facility] Monocytes 0.27 0.26 - 0.81 x10(9)/L 10/04/2023 8:59 AM [employer] [facility] Eosinophils 0.05 0.03 - 0.48 x10(9)/L 10/04/2023 8:59 AM [employer] [facility] Basophils <0.03 0.01 - 0.08 x10(9)/L 10/04/2023 8:59 AM [facility] [facility] Blood (Blood, Venous) 10/04/2023 8:41 AM [employer] 10/04/2023 8:56 AM POULTRY TRIMMER Jayna Albert M.D. LAB BLOOD ADD-ON [facility] [address] [place] [address], [place] [facility] [address] [place] [address] [facility] [address] [place] [address] * (ABNORMAL) Lipase (10/04/2023 8:41 AM POULTRY TRIMMER) Only the most recent of2 resultswithin the time period is included. Lipase, S 11(L) 13 - 60 U/L 10/04/2023 9: 44 AM POULTRY TRIMMER DTL Blood (Blood, Venous) 10/04/2023 8:41 AM POULTRY TRIMMER 10/04/2023 9:27 AM POULTRY TRIMMER Jayna Albert M.D. LAB BLOOD ADD-ON Performing Organization Address City/[facility] Co de Phone Number [facility] [address] [place] [address], [facility] [address] [place] [address] * Soluble Transferrin Receptor (sTfR) (10/03/2023 12:33 PM POULTRY TRIMMER) Only the most recent of2 resultswithin the time period is included. [facility] Soluble Transferrin Receptor (sTfR) 3.3 1.8 - 4.6 mg/L 10/03/2023 4:11 PM POULTRY TRIMMER DTL Comment: ----ADDITIONAL INFORMATION---- It is reported that Americans may have slightly higher values. Blood (Blood, Venous) 10/03/2023 12:33 PM POULTRY TRIMMER 10/03/2023 1:04 PM POULTRY TRIMMER West Mendoza APRN C.N.P., M.S. LA B BLOOD ADD-ON Performing Organization Address City/[facility] Co de Phone Number [facility] [address] [place] [address], [facility] [address] [place] [address] * 25-Hydroxyvitamin D2 and D3 (10/03/2023 12:33 PM POULTRY TRIMMER) 25-Hydroxy D2 <4.0 ng/mL 10/04/2023 3:37 PM POULTRY TRIMMER SDSC 25-Hydroxy D3 48 ng/mL 10/04/2023 3:37 PM POULTRY TRIMMER SDSC 25-Hydroxy D Total 48 ng/mL 2023 3:37 PM POULTRY TRIMMER SDSC Comment: ----REFERENCE VALUE---- 25-HYDROXY D TOTAL (D2+D3) Optimum levels in the healthy population are 20-50, patients with bone disease may benefit from higher levels within this range. ----ADDITIONAL INFORMATION---- This test was developed and its performance characteristics determined by [facility] in a manner consistent with CLIA requirements. This test has not been cleared or approved by the U.S. Food and Drug Administration. Blood (Blood, Venous) 10/03/2023 12:33 PM POULTRY TRIMMER 10/04/2023 7:30 AM POULTRY TRIMMER West Mendoza APRN, C.N.P., Scott PIERCE BLOOD ADD-ON Performing Organization Address City/[facility]/ZIP Co de Phone Number [facility] [address] [place] [address] [facility] [address] [place] [address] [place] [address] * Vitamin B12 Assay (10/03/2023 12:33 PM POULTRY TRIMMER) [facility] Vitamin B12 Assay, S 859 180 - 914 ng/L 10/03/2023 1:49 PM POULTRY TRIMMER DTL Comment: ----ADDITIONAL INFORMATION---- In patients being evaluated for vitamin B12 deficiency who have intrinsic factor blocking antibodies (IFBA), false elevations of B12 may occur due to IFBA interference thus potentially obscuring a physiological deficiency of B12. If observed B12 concentrations are discordant with clinical presentation, measurement of methylmalonic acid (MMA) should be considered. Blood (Blood, Venous) 10/03/2023 12:33 PM POULTRY TRIMMER 10/03/2023 1:04 PM POULTRY TRIMMER West Mendoza APRN, C.N.P., RufinoSJohanna PIERCE BLOOD ADD-ON Performing Organization Address City/[facility]/ZIP Co de Phone Number [facility] [address] [place] [address], [place] DTL [facility] [address] [place] [address] * (ABNORMAL) Comprehensive Metabolic Panel (10/03/2023 12:33 PM POULTRY TRIMMER) Only the most recent of6 resultswithin the time period is included. [facility] Potassium, S 5.2 3.6 - 5.2 mmol/L 10/03/2023 4:11 PM POULTRY TRIMMER DTL Sodium, S 137 135 - 145 mmol/L 10/03/2023 4:11 PM POULTRY TRIMMER DTL Chloride, S 102 98 - 107 mmol/L 10/03/2023 4:11 PM POULTRY TRIMMER DTL Bicarbonate, S 23 22 - 29 mmol/L 10/03/2023 4:11 PM POULTRY TRIMMER DTL Anion Gap 12 7 - 15 10/03/2023 4:11 PM POULTRY TRIMMER DTL BUN (Blood Urea Nitrogen), S 30(H) 8 - 24 mg/dL 10/03/2023 4:11 PM POULTRY TRIMMER DTL Creatinine 0.80 0.74 - 1.35 mg/dL 10/03/2023 4:11 PM POULTRY TRIMMER DTL Estimated GFR (eGFR) >90 >=60 mL/min/BS A 10/03/2023 4:11 PM POULTRY TRIMMER DTL Comment: Estimated GFR calculated using the 2020 CKD_EPI creatinine equation. Calcium, Total, S 8.4(L) 8.8 - 10.2 mg/dL 10/03/2023 4:11 PM POULTRY TRIMMER DTL Glucose, S 130 70 - 140 mg/dL 10/03/2023 4:11 PM POULTRY TRIMMER DTL Protein, Total, S 5.2(L) 6.3 - 7.9 g/dL 10/03/2023 4:11 PM POULTRY TRIMMER DTL Albumin, S 3.4(L) 3.5 - 5.0 g/dL 10/03/2023 4:11 PM POULTRY TRIMMER DTL Aspartate Aminotransferase (AST), S 20 8 - 48 U/L 10/03/2023 4:11 PM POULTRY TRIMMER DTL Alkaline Phosphatase, S 147(H) 40 - 129 U/L 10/03/2023 4:11 PM POULTRY TRIMMER DTL Alanine Aminotransferase (ALT), S 20 7 - 55 U/L 10/03/2023 4:11 PM POULTRY TRIMMER DTL Bilirubin, Total, S <0.2 0.0 - 1.2 mg/dL 10/03/2023 4:11 PM POULTRY TRIMMER DTL Blood (Blood, Venous) 10/03/2023 12:33 PM POULTRY TRIMMER 10/03/2023 1:04 PM POULTRY TRIMMER Sarah Reardon M.D. LAB BLOOD ADD-ON Performing Organization Address City/[facility]/[place] [address] * (ABNORMAL) Hemoglobin (10/02/2023 8:36 AM POULTRY TRIMMER) Only the most recent of2 resultswithin the time period is included. Hemoglobin 7.9(L) 13.2 - 16.6 g/dL 10/02/2023 9:09 AM POULTRY TRIMMER DTL Blood (Blood, Venous) 10/02/2023 8:36 AM POULTRY TRIMMER 10/02/2023 8:55 AM POULTRY TRIMMER Alessandro Gonzáles M.D. LAB BLOOD ADD-ON Performing Organization Address [facility] [place] [address] * (ABNORMAL) CBC no call back, reflex T/S HGB <8 (10/02/2023 5:51 AM POULTRY TRIMMER) Only the most recent of9 resultswithin the time period is included. Hemoglobin 7.8(L) 13.2 - 16.6 g/dL 10/02/2023 6:31 AM POULTRY TRIMMER DTL Hematocrit 24.2(L) 38.3 - 48.6 % 10/02/2023 6:31 AM POULTRY TRIMMER DTL Erythrocytes 2.57(L) 4.35 - 5.65 x10(12)/L 10/02/2023 6:31 AM POULTRY TRIMMER DTL MCV 94.2 78.2 - 97.9 fL 10/02/2023 6:31 AM POULTRY TRIMMER DTL RBC Distrib Width 16.5(H) 11.8 - 14.5 % 10/02/2023 6:31 AM POULTRY TRIMMER DTL Platelet Count 154 135 - 317 x10(9)/L 10/02/2023 6:31 AM POULTRY TRIMMER DTL Leukocytes 3.9 3.4 - 9.6 x10(9)/L 10/02/2023 6:31 AM POULTRY TRIMMER DTL Neutrophils 3.26 1.56 - 6.45 x10(9)/L 10/02/2023 6:31 AM POULTRY TRIMMER DHPM Lymphocytes 0.20(L) 0.95 - 3.07 x10(9)/L 10/02/2023 6:31 AM POULTRY TRIMMER DTL Monocytes 0.27 0.26 - 0.81 x10(9)/L 10/02/2023 6:31 AM POULTRY TRIMMER DTL Eosinophils 0.18 0.03 - 0.48 x10(9)/L 10/02/2023 6:31 AM POULTRY TRIMMER DTL Basophils <0.03 0.01 - 0.08 x10(9)/L 10/02/2023 6:31 AM POULTRY TRIMMER DTL Blood (Blood, Venous) 10/02/2023 5:51 AM POULTRY TRIMMER 10/02/2023 6:20 AM POULTRY TRIMMER Renee Mancilla M.D. LAB BLOOD NON ADD-ON [facility] [address] [place] [address], [facility] DTL [facility] [address] [place] [address] DHPM [facility] [address] [place] [address] * Type and Screen (with Reflex Antibody ID) (10/02/2023 5:51 AM POULTRY TRIMMER) Only the most recent of3 resultswithin the time period is included. Pathologist [facility] ABORh A Pos Not applicable 10/02/2023 8:32 AM POULTRY TRIMMER ETRM Antibody Screen Negative Negative 10/02/2023 8:39 AM POULTRY TRIMMER ETRM Type & Screen Expiration 10/05/2023 23:59 10/02/2023 8:32 AM POULTRY TRIMMER ETRM Testing Location [place] DEFAULT 10/02/2023 7:56 AM POULTRY TRIMMER ETRM Blood 10/02/2023 5:51 AM POULTRY TRIMMER 10/02/2023 7:56 AM POULTRY TRIMMER Renee Mancilla M.D. LAB BLOOD BANK TEST ORDERABLES [facility] [address] [place] [address], [place] ETRM [facility] [address] [place] [address] * Foot, Right-Nursing Image Exam (10/01/2023 10:26 AM POULTRY TRIMMER) Only the most recent of8 resultswithin the time period is included. 10/01/2023 10:2 4 AM POULTRY TRIMMER Narrative IIMS - 10/01/2023 10:26 AM POULTRY TRIMMER This order has been created and auto-finalized to support the import of images acquired without order. The clinical documentation to support these images can be found on the encounter that produced images. Provider Not In System IMG NON RAD IMAGI NG PROCEDURES Performing Organization Address City/[facility]/ZIP Co de Phone Number IICT NA * DX Abdomen 1 View (09/30/2023 11:04 AM POULTRY TRIMMER) Only the most recent of5 resultswithin the time period is included. Anatomical Region Laterality Modality Abdomen, Abdominal RST LOS, Abdominal ARZ LOS, Abdominal FLA LOS N/A Digital Radiography Impressions 09/30/2023 11:45 AM POULTRY TRIMMER PEG tube with jejunal extension with tip terminating in the proximal jejunum, grossly unchanged in position since 09/27/2023. Positive enteric contrast within the transverse and descending colon. Nonobstructive bowel gas pattern. Visualized lung bases are clear. L4-L5 laminectomies. Vascular calcifications. Narrative 09/30/2023 11:45 AM POULTRY TRIMMER EXAM: ??DX ABDOMEN 1 VIEW Procedure Note Maira Kwon M.D. - 09/30/2023 EXAM: DX ABDOMEN 1 VIEW IMPRESSION: PEG tube with jejunal extension with tip terminating in the proximaljejunum, grossly unchanged in position since 09/27/2023. Positive entericcontrast within the transverse and descending colon. Nonobstructive bowelgas pattern. Visualized lung bases are clear. L4-L5 laminectomies. Vascularcalcifications. Alessandro COLUNGAG DIAGNOSTIC IMAGI NG PROCEDURES * Potassium, Plasma (09/27/2023 8:06 PM POULTRY TRIMMER) Potassium, P 5.0 3.6 - 5.2 mmol/L 09/27/2023 8:37 PM POULTRY TRIMMER DTL Blood (Blood, Venous) 09/27/2023 8:06 PM POULTRY TRIMMER 09/27/2023 8:28 PM POULTRY TRIMMER Luis Antonio Jacinto M.D. LAB BLOOD ADD-ON Performing Organization Address [facility]/[place] [address] * (ABNORMAL) Potassium (09/27/2023 1:55 PM POULTRY TRIMMER) Only the most recent of2 resultswithin the time period is included. Potassium, S 5.4(H) 3.6 - 5.2 mmol/L 09/27/2023 3:09 PM POULTRY TRIMMER DT Blood (Blood, Venous) 09/27/2023 1:55 PM POULTRY TRIMMER 09/27/2023 2:54 PM POULTRY TRIMMER Renee Mancilla M.D. LAB BLOOD ADD-ON Performing Organization Address City/[facility]/ZIP Co de Phone Number [facility] [address] [place] [address], [address] [address] * [place] Fluoro Less Than 1 Hour (09/27/2023 12:48 PM POULTRY TRIMMER) Only the most recent of2 resultswithin the time period is included. Narrative ERCP LOS RST - 09/27/2023 12:49 PM POULTRY TRIMMER This exam does not require a radiologist review or interpretation. Please refer to the patient's medical record on this date for clinical details. Alessandro COLUNGAG FLUOROSCOPY PROC EDURES ERCP LOS RST * LDA ANE ENDOTRACHEAL AIRWAY (09/27/2023 11:54 AM POULTRY TRIMMER) Narrative Michelle Waite APRN, CRNA D.N.P. - 09/27/2023 11:54 AM POULTRY TRIMMER Michelle Waite APRN, CRNA, D.N.P. ? 09/27/2023 12:09 PM Airway Date/Time: 09/27/2023 11:54 AM Performed by: Michelle Waite APRN, CRNA D.N.P. Authorized by: Michelle Waite APRN, CRNA, D.N.P. ?? Patient location during procedure: OR / Procedure Area PROCEDURE DETAILS: Mask difficulty assessment: easy mask Final airway type: video laryngoscope Laryngeal Manipulation: no ?? Final best view of glottic structures - Cormack/Lehane Score: grade 1 ETT location: oral VL device: glide scope Sutherland scope blade size: 4 Tube size: 7 [...] Notable Events: no complications Michelle Waite APRN, CRNA D.N.P. A NESTHESIA ORDERABLES * Upper GI endoscopy-Gastroenterology Image Exam (09/27/2023 11:25 AM POULTRY TRIMMER) Only the most recent of3 resultswithin the time period is included. 09/27/2023 11:2 2 AM POULTRY TRIMMER Narrative IIMS - 09/27/2023 1:11 PM POULTRY TRIMMER This order has been created and auto-finalized to support the import of images acquired without order. The clinical documentation to support these images can be found on the encounter that produced images. Provider Not In System IMG NON RAD IMAGI NG PROCEDURES IIMS NA * Upper GI Endoscopy (09/27/2023 11:22 AM POULTRY TRIMMER) 09/27/2023 11:2 2 AM POULTRY TRIMMER Impressions [facility] [place] - 09/27/2023 1:04 PM POULTRY TRIMMER Post-op Diagnoses: ? - Z-line regular, 40 cm from the incisors. ? - Normal stomach. ? 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 ? - An externally removable 20Fr PEG with a 10Fr Jejunal extension was ? successfully placed . ? - No specimens collected. Narrative [facility] [place] - 09/27/2023 1:04 PM POULTRY TRIMMER Gonda 2 GI Patient Name: Hola Lau [...] Alessandro Gonázles M.D. GI PROCEDURE ORDERAB LES Performing Organization Address [facility] Co de Phone Number [employer] NA * (ABNORMAL) Uric Acid (09/27/2023 5:48 AM POULTRY TRIMMER) Only the most recent of3 resultswithin the time period is included. Uric Acid, S 3.1(L) 3.7 - 8.0 mg/dL 09/27/2023 8:02 AM POULTRY TRIMMER DTL Blood (Blood, Venous) 09/27/2023 5:48 AM POULTRY TRIMMER 09/27/2023 7:31 AM POULTRY TRIMMER Melva Mckeon M.D. LAB BLOOD ADD-ON [facility] [address] [place] [address], [place] DTL [facility] [address] [place] [address] * DX Abdomen Portable Anterior Posterior 1 View (09/23/2023 12:25 PM POULTRY TRIMMER) Only the most recent of2 resultswithin the time period is included. Anatomical Region Laterality Modality Abdomen, Abdominal RST LOS, Abdominal ARZ LOS, Abdominal FLA LOS N/A Digital Radiography Impressions 09/23/2023 12:30 PM POULTRY TRIMMER NJ tube with tip likely in the expected location of the proximal jejunum. Narrative 09/23/2023 12:30 PM POULTRY TRIMMER EXAM: ??DX ABDOMEN PORTABLE ANTERIOR POSTERIOR 1 VIEW Procedure Note Dereje Sepulveda D.O. - 09/23/2023 EXAM: DX ABDOMEN PORTABLE ANTERIOR POSTERIOR 1 VIEW IMPRESSION: NJ tube with tip likely in the expected location of the proximaljejunum. Melva LOPEZ DIAGNOSTIC I MAGING PROCEDURES * MR Brain without and with IV Contrast (09/20/2023 6:24 PM POULTRY TRIMMER) Anatomical Region Laterality Modality Head, Brain, Neuroradiology RST LOS, Neuroradiology ARZ LOS, Neuroradiology FLA LOS N/A Magnetic Resonance Impressions 09/20/2023 9:16 PM POULTRY TRIMMER No evidence of acute infarction or other acute intracranial findings. Narrative 09/20/2023 9:16 PM POULTRY TRIMMER EXAM: MR BRAIN WITHOUT AND WITH IV [...] other acute intracranial findings. Melva Rodas M.D. [facility] [place]EDUR ES * [place] ARTHCS ASP/INJ MJR JT WO (09/20/2023 12:37 PM POULTRY TRIMMER) Narrative Hola Romero M.D. - 09/20/2023 12:37 PM POULTRY TRIMMER Jad Hanks M.D. ? 09/20/2023 12:42 PM [...] / Anaerobe + Susc (09/20/2023 12:34 PM POULTRY TRIMMER) Bacteria Cult, Aerobe/Anaerob e+Susc No growth after 14 days of incubation. 10/04/2023 4:02 PM POULTRY TRIMMER DTL Synovial Fluid, Right Knee 09/20/2023 12:34 PM POULTRY TRIMMER 09/20/2023 3:31 PM POULTRY TRIMMER Comment:Specimen Source Site : Fluid Jad Hanks M.D. LAB MICROBIOLOGY - GENERAL ORDERABLES [facility] [address] [place] [address], [facility] DTL [facility] [address] [place] [address] * Crystal Identification, Body Fluid (09/20/2023 12:34 PM POULTRY TRIMMER) Fluid Type Synovial Fluid, Right Knee 09/20/2023 2:13 PM POULTRY TRIMMER DHPM Crystal ID None seen None seen 09/20/2023 2:13 PM POULTRY TRIMMER DHPM Fluid (Synovial Fluid, Right Knee) 09/20/2023 12:34 PM POULTRY TRIMMER 09/20/2023 1:00 PM POULTRY TRIMMER Jad Hanks M.D. LAB BODY FLUIDS AND STOOLS ORDERABLES [facility] [address] [place] [address], [facility] [address] [place] [address] * Cell Count and Differential, Body Fluid (09/20/2023 12:34 PM POULTRY TRIMMER) Fluid Type Right knee synovial 09/20/2023 2:13 PM POULTRY TRIMMER DHPM Gross Appearance Serous 09/20/19 24 2:13 PM POULTRY TRIMMER DHPM Total Nucleated Cells 4188 /mcL 09/20/2023 2:13 PM POULTRY TRIMMER DHPM Comment: ----REFERENCE VALUE---- Synovial: <150 /mcL Peritoneal: <500 /mcL Pleural: <500 /mcL Pericardial: <500 /mcL ----ADDITIONAL INFORMATION---- This test has been modified from the credit operations specialist's instructions. Its performance characteristics were determined by [facility] in a manner consistent with CLIA requirements. This test has not been cleared or approved by the U.S. Food and Drug Administration. Neutrophils 87 % 09/20/2023 2:13 PM POULTRY TRIMMER DHPM Comment: ----REFERENCE VALUE---- Synovial: <25% Peritoneal: <25% Pleural: <25% Pericardial: <25% Monocytes/Macropha ges 13 Synovial <70% % 09/20/2023 2:13 PM POULTRY TRIMMER DHPM Comment See Comment 09/20/2023 2:13 PM POULTRY TRIMMER DHPM Reviewed by: Kaylen 09/20/2023 2:13 PM POULTRY TRIMMER [facility] Fluid (Synovial Fluid, Right Knee) 09/20/2023 12:34 PM POULTRY TRIMMER 09/20/2023 1:00 PM POULTRY TRIMMER Jad Hanks M.D. LAB BODY FLUIDS AND STOOLS ORDERABLES Performing Organization Address City/[facility]/ZIP Co de Phone Number [facility] [address] [place] [address], [facility] [address] [place] [address] * Gram Stain (09/20/2023 12:34 PM POULTRY TRIMMER) Pathologist [facility] Gram Stain No organisms seen. White blood cells, Many 09/20/2023 8:14 PM POULTRY TRIMMER DT Fluid (Synovial Fluid, Right Knee) 09/20/2023 12:34 PM POULTRY TRIMMER 09/20/2023 3:31 PM POULTRY TRIMMER Comment:Specimen Source Site : Fluid Jad Hanks M.D. LAB MICROBIOLOGY - GENERAL ORDERABLES Performing Organization Address [facility]/ZIP Co de Phone Number [facility] [address] [place], [place] [address] [place] [address] [address] [place] [address] * (ABNORMAL) CRP (C-Reactive Protein) (09/20/2023 6:18 AM POULTRY TRIMMER) Pathologist [facility] C-Reactive Protein (CRP), S 95.7(H) <5.0 mg/L 09/20/2023 10:09 AM POULTRY TRIMMER DT Blood 09/20/2023 6:18 AM POULTRY TRIMMER 09/20/2023 9:38 AM POULTRY TRIMMER Ling Carrillo M.D. LAB BLOOD ADD-ON [facility] [address] [place] [address], [facility] [address] [place] [address] * CT Head without IV Contrast (09/19/2023 4:12 PM POULTRY TRIMMER) Anatomical Region Laterality Modality Head, Neuroradiology RST LOS , Neuroradiology ARZ LOS, Neuroradiology FLA LOS N/A Computed Tomography, Compute d Tomography 09/19/2023 3:59 PM POULTRY TRIMMER Impressions 09/19/2023 5:39 PM POULTRY TRIMMER 1. 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 2. No acute intracranial hemorrhage. 3. No acute arterial abnormality in the head or neck. 4. Calcified atheromatous plaque at the carotid bulbs results in mild narrowing of the internal carotid artery origins, as detailed. Narrative 09/19/2023 5:39 PM POULTRY TRIMMER EXAM: CT HEAD WITHOUT IV CONTRAST, CT [...] CTA HEAD: Functional origin of the left BLAST FURNACE KEEPER with diminutive left P1 segment. Diminutive right [...] Port-A-Cath. Findings were discussed with Dr. Sen ([id number]) at 5:26 PM on 09/19/2023. Procedure Note [...] CTA HEAD: Functional origin of the left BLAST FURNACE KEEPER with diminutive left P1 segment.Diminutive right posterior [...] Port-A-Cath. Findings were discussed with Dr. Sen ([id number]) at 5:26 PM on 09/19/2023. IMPRESSION: 1. 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 2. No acute intracranial hemorrhage. 3. No acute arterial abnormality in the head or neck. 4. Calcified atheromatous plaque at the carotid bulbs results in mildnarrowing of the internal carotid artery origins, as detailed. Eugenie COLUNGAG CT PROCEDURES * CT Head Neck Angiogram with IV Contrast (09/19/2023 4:12 PM POULTRY TRIMMER) Anatomical Region Laterality Modality Head and Neck, Neuroradiolog y RST LOS, [facility], [facility] N/A Computed Tomography, Compute d Tomography 09/19/2023 4:09 PM POULTRY TRIMMER Impressions 09/19/2023 5:39 PM POULTRY TRIMMER 1. 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 2. No acute intracranial hemorrhage. 3. No acute arterial abnormality in the head or neck. 4. Calcified atheromatous plaque at the carotid bulbs results in mild narrowing of the internal carotid artery origins, as detailed. Narrative 09/19/2023 5:39 PM POULTRY TRIMMER EXAM: CT HEAD WITHOUT IV CONTRAST, CT [...] CTA HEAD: Functional origin of the left BLAST FURNACE KEEPER with diminutive left P1 segment. Diminutive right [...] Port-A-Cath. Findings were discussed with Dr. Sen ([id number]) at 5:26 PM on 09/19/2023. Procedure Note [...] CTA HEAD: Functional origin of the left BLAST FURNACE KEEPER with diminutive left P1 segment.Diminutive right posterior [...] Port-A-Cath. Findings were discussed with Dr. Sen ([id number]) at 5:26 PM on 09/19/2023. IMPRESSION: 1. 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 2. No acute intracranial hemorrhage. 3. No acute arterial abnormality in the head or neck. 4. Calcified atheromatous plaque at the carotid bulbs results in mildnarrowing of the internal carotid artery origins, as detailed. Eugenie Sen M.D. IMG CT PROCEDURES * Surgical Pathology (09/17/2023 3:21 PM POULTRY TRIMMER) 09/18/2023 11:36 AM POULTRY TRIMMER DTL Report electronically signed by Heydi Hurley M.D. I verify that I have examined all relevant slides/materials for the specimen(s) and rendered or confirmed the diagnosis. 09/18/2023 11:36 AM POULTRY TRIMMER DTL Gross Description Received in formalin labeled with the patient's name, medical record number, and duodenum-duodenum , third part duodenum are sixpale saenz-saenz irregular soft tissues, ranging from 0.1-0.4 cm in greatest dimension. Due to the scant nature of the tissue fragments, some orall may not survive processing. ??Specimens are submitted en toto in cassette A1. ??Grossed by MBSindy. 09/18/2023 11:36 AM POULTRY TRIMMER DTL Interpretation FINAL DIAGNOSIS A. Duodenum, 3rd part, endoscopic biopsy: ??Duodenal ulcer with fibrinopurulent exudates. ??Minute strips of duodenal mucosa with focal gastric foveolar metaplasia. ??No evidence of dysplasia or neoplasm. Digital imaging was used in the diagnostic assessment of this case . 09/18/2023 11:36 AM POULTRY TRIMMER DTL Biopsy (Duodenum) 09/17/2023 3:21 PM POULTRY TRIMMER Devang Perez LAB STEPHAN G PATH ORDERABLES [facility] [address] [place] [address], [facility] DTL [address] [place] [address] * LDA ANE ENDOTRACHEAL AIRWAY (09/17/2023 3:09 PM POULTRY TRIMMER) Narrative Aleks Barrios APRN, CRNA - 09/17/2023 3:09 PM POULTRY TRIMMER Aleks Barrios APRN, SAL ? 09/17/2023 ??3:15 PM Airway Date/Time: 09/17/2023 [...] ETT location: oral VL device: glide scope Sutherland scope blade size: 4 Tube size: 7 [...] * Upper GI Endoscopy (09/17/2023 2:36 PM POULTRY TRIMMER) 09/17/2023 2:36 PM POULTRY TRIMMER [facility] 09/17/2023 3:44 PM POULTRY TRIMMER Post-op Diagnoses: ? - Normal esophagus. ? - Normal stomach. ? - Acquired duodenal stenosis. Biopsied. ? - Feeding tube placement was successfully performed. Narrative [employer] - 09/17/2023 3:44 PM POULTRY TRIMMER Gonda 2 GI Patient Name: Hola Lau [...] Clare Cuevas M.D. GI PROCEDURE ORDERAB LES [facility] [place] NA * EBV DNA Detect/Quant (09/16/2023 5:14 AM POULTRY TRIMMER) EBV DNA Detect/Quant, P Undetected Undetected IU/mL 09/17/2023 1:06 PM POULTRY TRIMMER [facility] Comment: Result in log IU/mL is Undetected. ----ADDITIONAL INFORMATION---- The quantification range of this assay is 35 to 100,000,000 IU/mL (1.54 log to 8.00 log IU/mL). Testing was performed using the brady EBV test ([employer] with the brady 6800 System. Blood (Blood, Venous) 09/16/2023 5:14 AM POULTRY TRIMMER 09/16/2023 8:19 AM POULTRY TRIMMER Clare Cuevas M.D. LAB MICROBIOLOGY - B LOOD ORDERABLES Performing Organization Address [facility] de Phone Number [facility] [address] [place] [address] [facility] [address] [place] [address] [place] [address] * CMV DNA Detect / Quant, Plasma (09/16/2023 5:14 AM POULTRY TRIMMER) [facility] CMV DNA Detect/Quant, P Undetected Undetected IU/mL 09/17/2023 7:25 AM POULTRY TRIMMER [facility] Comment: Result in log IU/mL is Undetected. ----ADDITIONAL INFORMATION---- The quantification range of this assay is 35 to 10,000,000 IU/mL (1.54 log to 7.00 log IU/mL). Testing was performed using the brady CMV test ([employer] with the brady 6800 System. Blood (Blood, Venous) 09/16/2023 5:14 AM POULTRY TRIMMER 09/16/2023 8:19 AM POULTRY TRIMMER Clare Cuevas M.D. LAB MICROBIOLOGY - B LOOD ORDERABLES Performing Organization Address [facility] de Phone Number [facility] [address] [place] [address] [facility] [address] [place] [address] [place] [address] * Foot-Transplantation Surg Image Exam (09/15/2023 8:55 AM POULTRY TRIMMER) 09/15/2023 8:53 AM POULTRY TRIMMER Narrative [facility] - 09/15/2023 8:55 AM POULTRY TRIMMER This order has been created and auto-finalized to support the import of images acquired without order. The clinical documentation to support these images can be found on the encounter that produced images. Provider Not In System IMG NON RAD IMAGI NG PROCEDURES Performing Organization Address City/[facility]/ZIP Co de Phone Number [facility] NA * LD (Lactate Dehydrogenase) (09/15/2023 5:05 AM POULTRY TRIMMER) Only the most recent of3 resultswithin the time period is included. [facility] LD 195 122 - 222 U/L 09/15/2023 6:02 AM POULTRY TRIMMER DT Blood (Blood, Venous) 09/15/2023 5:05 AM POULTRY TRIMMER 09/15/2023 5:38 AM POULTRY TRIMMER Mihcelle Ac M.D. LAB BLOOD NON ADD-O N Performing Organization Address [facility] Co de Phone Number [facility] [address] [place] [address], [facility] [address] [place] [address] * (ABNORMAL) Haptoglobin (09/15/2023 5:02 AM POULTRY TRIMMER) Only the most recent of2 resultswithin the time period is included. [facility] Haptoglobin, S 251(H) 30 - 200 mg/dL 09/16/2023 1:58 PM POULTRY TRIMMER [facility] Blood (Blood, Venous) 09/15/2023 5:02 AM POULTRY TRIMMER 09/16/2023 10:21 AM POULTRY TRIMMER Michelle Ac M.D. LAB BLOOD ADD-ON Performing Organization Address [facility] Co de Phone Number [facility] [address] [place] [address] [facility] [address] [place] [address] * Influenza A, B, RSV, PCR, Rapid (09/14/2023 8:28 PM POULTRY TRIMMER) [facility] Influenza A, PCR, Rapid, V Negative Negative 09/14/2023 9:00 PM POULTRY TRIMMER [facility] Influenza B, PCR, Rapid, V Negative Negative 09/14/2023 9:00 PM POULTRY TRIMMER [facility] Resp Synctial Virus, PCR, Rapid Negative Negative 09/14/2023 9:00 PM POULTRY TRIMMER [facility] Specimen Source Swab, Nasopharynx 09/14/2023 8:59 PM POULTRY TRIMMER [facility] Swab (Nasopharynx) 09/14/2023 8:28 PM POULTRY TRIMMER 09/14/2023 8:32 PM POULTRY TRIMMER Aris Mina P.A.-C. LAB MICROBIOLOGY - GENERAL ORDERABLES Performing Organization Address [facility] de Phone Number [facility] [address] [place] [address], [facility] [address] [place] [address] * (ABNORMAL) Dipstick, Urine (09/14/2023 8:28 PM POULTRY TRIMMER) Pathologist [facility] Hemoglobin, QL, U Negative Negative 09/14/2023 9:05 PM POULTRY TRIMMER D[facility] Leukocyte Esterase, U Negative Negative 09/14/2023 9:05 PM POULTRY TRIMMER DTL Nitrite, U Negative Negative 09/14/2023 9:05 PM POULTRY TRIMMER DTL Ketone, U Negative Negative mg/dL 09/14/2023 9:05 PM POULTRY TRIMMER DTL Glucose, U >=1000(A) Negative mg/dL 09/14/2023 9:05 PM POULTRY TRIMMER DTL Urine 09/14/2023 8:28 PM POULTRY TRIMMER 09/14/2023 8:56 PM POULTRY TRIMMER Aris Mina P.A.-C. LAB URINE ORDERA BLES Performing Organization Address [facility] de Phone Number [facility] [address] [place] [address], [facility] [address] [place] [address] * SARS Coronavirus 2, PCR Rapid Symptomatic (09/14/2023 8:28 PM POULTRY TRIMMER) Pathologist [facility] SARS CoV-2, PCR, Rapid, V Undetected Undetected 09/14/2023 8:59 PM POULTRY TRIMMER [facility] Comment: ----ADDITIONAL INFORMATION---- This RT-PCR test was performed using the Jesus SARS-CoV-2 and Influenza A/B Reagent assay from [employer], which has received Emergency Use Authorization(EUA) by the U.S. Food and Drug Administration. Fact sheets for this Emergency Use Authorization (EUA) assay can be found at the following links: For Healthcare Providers: https://www.fda.gov/media/355190/download For Patients: https://www.fda.gov/media/151879/download SARS Coronavirus 2, Rapid, Source Swab, Nasopharynx 09/14/2023 8:32 PM POULTRY TRIMMER [facility] Swab (Nasopharynx) 09/14/2023 8:28 PM POULTRY TRIMMER 09/14/2023 8:32 PM POULTRY TRIMMER Aris Mina P.A.-C. LAB MICROBIOLOGY - GENERAL ORDERABLES Performing Organization Address [facility] Co de Phone Number [facility] [address] [place] [address], [facility] STMA [facility] [address] [place] [address] * Microscopic Manual (09/14/2023 8:28 PM POULTRY TRIMMER) Microscopy Normal 09/14/2023 9:21 PM POULTRY TRIMMER DTL RBC <3 <3 /hpf 09/14/2023 9:21 PM POULTRY TRIMMER DTL WBC 1-3 /hpf 09/14/2023 9:21 PM POULTRY TRIMMER D[facility] Comment: ----REFERENCE VALUE---- <4 ??(Males) <11 (Females) Casts, Hyaline Occas /lpf 09/14/2023 9:21 PM POULTRY TRIMMER DTL Squamous Epithelial Cells, U 1-3 /hpf 09/14/2023 9:21 PM POULTRY TRIMMER DTL Urine 09/14/2023 8:28 PM POULTRY TRIMMER 09/14/2023 9:05 PM POULTRY TRIMMER Aris Mina P.A.-C. LAB URINE ORDERA BLES Performing Organization Address [facility] Co de Phone Number [facility] [address] [place] [address], [facility] DTL [facility] [address] [place] [address] * Bacterial Culture, Aerobic + Susceptibility, Urine (09/14/2023 8:28 PM POULTRY TRIMMER) Urine Culture No growth after 1 day of incubation. 09/16/2023 7:12 AM POULTRY TRIMMER DTL Urine (Urine, Midstream) 09/14/2023 8:28 PM POULTRY TRIMMER 09/14/2023 9:05 PM POULTRY TRIMMER Comment:Specimen Source Site : Urine Aris Mina P.A.-C. LAB MICROBIOLOGY - GENERAL ORDERABLES [facility] [address] [place] [address] * pH, Urine (09/14/2023 8:28 PM POULTRY TRIMMER) pH, U 7.1 4.5 - 8.0 09/14/2023 9:1 6 PM POULTRY TRIMMER DT Urine 09/14/2023 8:28 PM POULTRY TRIMMER 09/14/2023 8:56 PM POULTRY TRIMMER Aris Mina P.A.-C. LAB URINE ORDERA BLES Performing Organization Address City/[facility]/ZIP Co de Phone Number [facility] [address] [place] [address], [facility] [address] [place] [address] * Osmolality, Urine (09/14/2023 8:28 PM POULTRY TRIMMER) Osmolality, U 610 150 - 1150 mOsm/kg 09/14/2023 9:16 PM POULTRY TRIMMER DT Urine 09/14/2023 8:28 PM POULTRY TRIMMER 09/14/2023 8:56 PM POULTRY TRIMMER Aris Mina P.A.-C. LAB URINE ORDERA BLES Performing Organization Address City/[facility]/ZIP Co de Phone Number [facility] [address] [place], [place] [address] [place] [address] [address] [place] [address] * (ABNORMAL) Urinalysis with Microscopic: Urine, Midstream (09/14/2023 8:28 PM POULTRY TRIMMER) Source Urine, Urine, Midstream 09/14/2023 8:56 PM POULTRY TRIMMER DTL Color, U Yellow 09/14/2023 8:56 PM POULTRY TRIMMER DTL Clarity, U Clear 09/14/2023 8:56 PM POULTRY TRIMMER DTL Protein, U 148(H) <26 mg/dL 09/14/2023 9:37 PM POULTRY TRIMMER DTL Protein/Osmol ality 2.43(H) <0.42 ratio 09/14/2023 9:37 PM POULTRY TRIMMER DTL Predicted 24 HR Protein, U 2191(H) <229 mg/24 h 09/14/2023 9:37 PM POULTRY TRIMMER DTL Predicted Range 696-6905 mg/24 h 09/14/2023 9:37 PM POULTRY TRIMMER DTL Comment Micro done on <10 mL 09/14/2023 9:17 PM POULTRY TRIMMER DTL Urine (Urine, Midstream) 09/14/2023 8:28 PM POULTRY TRIMMER 09/14/2023 8:56 PM POULTRY TRIMMER Aris Mina P.A.-C. LAB URINE ORDERA BLES [facility] [address] [place] [address], [facility] DTL [facility] [address] [place] [address] * (ABNORMAL) SPSMA Result (09/14/2023 8:14 PM POULTRY TRIMMER) Only the most recent of2 resultswithin the time period is included. Pathologist [facility] Neutrophilic Segs and Bands 33(L) 50 - 75 % 09/15/2023 3:06 AM POULTRY TRIMMER [facility] Lymphocytes 32 18 - 42 % 09/15/2023 3:06 AM POULTRY TRIMMER [facility] Monocytes 24(H) 2 - 11 % 09/15/2023 3:06 AM POULTRY TRIMMER [facility] Eosinophils 8(H) 1 - 3 % 09/15/2023 3:06 AM POULTRY TRIMMER [facility] Basophils 3(H) 0 - 2 % 09/15/2023 3:06 AM POULTRY TRIMMER [facility] Interpretation See Comment 3:06 AM POULTRY TRIMMER PM Comment:Polychromasia is pre sent. No schistocytes are seen. No platelet clumping. Reviewed by: Kaylen 09/15/2023 3:06 AM POULTRY TRIMMER [facility] Blood (Blood, Venous) 09/14/2023 8:14 PM POULTRY TRIMMER 09/15/2023 12:42 AM POULTRY TRIMMER Michelle Ac M.D. LAB BLOOD ADD-ON Performing Organization Address [facility] Co de Phone Number [facility] [address] [place] [address], [address] [address] * Bacteria / Joel Culture, Blood # 2 (09/14/2023 8:14 PM POULTRY TRIMMER) Only the most recent of4 resultswithin the time period is included. Pathologist [facility] Bacteria/Torrie da Culture, Blood No growth after 5 days of incubation. 09/19/2023 9:02 PM POULTRY TRIMMER DT Blood (Blood, Peripheral Draw) 09/14/2023 8:14 PM POULTRY TRIMMER 09/14/2023 8:30 PM POULTRY TRIMMER Comment:Specimen Source Site : Blood Aris Mina P.A.-C. LAB MICROBIOLOGY - GENERAL ORDERABLES Performing Organization Address [facility] Co de Phone Number [facility] [address] [place] [address], [facility] [address] [place] [address] * (ABNORMAL) Reticulocytes (09/14/2023 7:57 PM POULTRY TRIMMER) Reticulocytes, B 2.77(H) 0.60 - 2.71 % 09/15/2023 1:24 AM POULTRY TRIMMER DT Absolute Reticulocyte 78.4 30.4 - 110.9 x10(9)/L 09/15/2023 1:24 AM POULTRY TRIMMER DT Blood (Blood, Venous) 09/14/2023 7:57 PM POULTRY TRIMMER 09/15/2023 1:13 AM POULTRY TRIMMER Michelle Ac M.D. LAB BLOOD ADD-ON Performing Organization Address City/[facility] Co de Phone Number [facility] [address] [place] [address] * ABO/Rh Problem, RBC (09/04/2023 3:16 PM POULTRY TRIMMER) Pathologist [facility] ABORh A Pos Not applicable 09/04/2023 5:08 PM POULTRY TRIMMER DT Blood 09/04/2023 3:16 PM POULTRY TRIMMER 09/04/2023 3:39 PM POULTRY TRIMMER Bev Gifford APRN, C.N.P., M.S.N. L AB BLOOD BANK TEST ORDERABLES Performing Organization Address [facility] Co de Phone Number [facility] [address] [place] [address] * Upper GI Endoscopy (08/13/2023 2:06 PM POULTRY TRIMMER) 08/13/2023 2:06 PM POULTRY TRIMMER Impressions [facility] [place] - 08/13/2023 3:03 PM POULTRY TRIMMER Post-op Diagnoses: ? - Normal esophagus. ? [...] food. ? - No specimens collected. Narrative [facility] - 08/13/2023 3:03 PM POULTRY TRIMMER Gonda 2 GI Patient Name: Hola Lau [...] 2:06 PM Roseann Burgos, B.Ch., B.A.O. GI [place] OCEDURE ORDERABLES PETE RICK NA * PET CT Skull to Thigh FDG (08/09/2023 1:20 PM POULTRY TRIMMER) Anatomical Region Laterality Modality Body, Nuclear Medicine PET R ST LOS, PET ARZ LOS, Nuclear Medicine PET FLA LOS, Nuclear Medicine N/A Positron Emission Tomography (PET), Positron Emission Tomography (PET) 08/09/2023 2:43 PM POULTRY TRIMMER Impressions 08/09/2023 3:08 PM POULTRY TRIMMER 1. Further decrease in FDG uptake involving/adjacent to the 3rd portion of the duodenum. Deauville response criteria= 3 2. FDG uptake of the colon and gallbladder may be related to inflammation. 3. Slight interval increase in small bilateral pleural effusions. Narrative 08/09/2023 3:08 PM POULTRY TRIMMER EXAM: ??PET CT SKULL TO THIGH FDG Serum glucose at time of F-18 FDG injection was 69 mg/dL. Patient followed standard dietary/fasting requirements for this exam. RADIOPHARMACEUTICAL/MEDS: Route: intravenous fludeoxyglucose F 18 injection FCI (FDG F-18),10.12 millicurie TECHNIQUE: ??F-18 FDG PET/CT [...] RADIOPHARMACEUTICAL/MEDS: Route: intravenous fludeoxyglucose F 18 injection FCI (FDG F-18),10.12 millicurie TECHNIQUE: F-18 FDG PET/CT [...] increase in small bilateral pleural effusions. Bety Castro M.D. [facility] PROCEDURES * (ABNORMAL) Reticulocyte Profile (08/05/2023 7:35 PM POULTRY TRIMMER) Reticulocytes, B 1.57 0.60 - 2.71 % 08/05/2023 8:09 PM POULTRY TRIMMER DTL Absolute Reticulocyte 38.3 30.4 - 110.9 x10(9)/L 08/05/2023 8:09 PM POULTRY TRIMMER DTL Immature Reticulocyte Fraction 33.8(H) 2.3 - 13.4 % 08/05/2023 8:09 PM POULTRY TRIMMER DTL Reticulocyte Hemoglobin 32.1 30.0 - 37.6 pg 08/05/2023 8:09 PM POULTRY TRIMMER DTL Erythrocytes 2.44(L) 4.35 - 5.65 x10(12)/L 08/05/2023 8:09 PM POULTRY TRIMMER DTL Blood (Blood, Venous) 08/05/2023 7:35 PM POULTRY TRIMMER 08/05/2023 8:02 PM POULTRY TRIMMER Lenny Peters M.D. LAB BLOOD ADD-ON [facility] [address] [place] [address], [facility] DTL [facility] [address] [place] [address] * (ABNORMAL) Iron and Total Iron-Binding Capacity (08/05/2023 7:35 PM POULTRY TRIMMER) Iron 38(L) 50 - 150 mcg/dL 08/05/2023 9:44 PM POULTRY TRIMMER DTL Total Iron Binding Capacity 124(L) 250 - 400 mcg/dL 08/05/2023 9:44 PM POULTRY TRIMMER DTL Percent Saturation 31 14 - 50 % 08/05/2023 9:44 PM POULTRY TRIMMER DTL Blood (Blood, Venous) 08/05/2023 7:35 PM POULTRY TRIMMER 08/05/2023 8:13 PM POULTRY TRIMMER Lenny Peters M.D. LAB BLOOD ADD-ON [facility] [address] [place] [address] * (ABNORMAL) Ferritin (08/05/2023 7:35 PM POULTRY TRIMMER) Pathologist [facility] Ferritin, S 597(H) 31 - 409 mcg/L 08/05/2023 9:44 PM POULTRY TRIMMER DTL Blood (Blood, Venous) 08/05/2023 7:35 PM POULTRY TRIMMER 08/05/2023 8:13 PM POULTRY TRIMMER Lenny Peters M.D. LAB BLOOD ADD-ON Performing Organization Address City/[facility]/ZIP Co de Phone Number [facility] [address] [place] [address], [facility] [address] [place] [address] * CT Chest Angiogram and Pulmonary Arteries with IV Contrast (08/05/2023 2:24 PM POULTRY TRIMMER) Anatomical Region Laterality Modality Chest, Cardiovascular RST LO S, Thoracic ARZ LOS, Thoracic FLA LOS N/A Computed Tomography, Compute d Tomography 08/05/2023 2:18 PM POULTRY TRIMMER Impressions 08/05/2023 2:50 PM POULTRY TRIMMER 1. No acute pulmonary thromboembolism. 2. Findings compatible with pulmonary fibrosis. 3. Similar appearance of lymphomatous infiltration of the duodenum without new acute intra-abdominal abnormality. Narrative 08/05/2023 2:50 PM POULTRY TRIMMER EXAM: ??CT CHEST ANGIOGRAM AND PULMONARY ARTERIES [...] [facility] since May 11, 2023. IMPRESSION: 1. No acute pulmonary thromboembolism. 2. Findings compatible with pulmonary fibrosis. 3. Similar appearance of lymphomatous infiltration of the duodenum withoutnew acute intra-abdominal abnormality. Megan Frazier P.A.-C. M.S. IMG CT [place] OCEDURES * Lactate, POCT (08/05/2023 1:38 PM POULTRY TRIMMER) [facility] Lactate, POCT 0.85 0.50 - 2.20 mmol/L 08/05/2023 4:30 PM POULTRY TRIMMER [facility] Blood (Blood, Venous) 08/05/2023 1:38 PM POULTRY TRIMMER 08/05/2023 1:38 PM POULTRY TRIMMER Megan Frazier P.A.-C., M.S. LAB POCT ORDERABLES - DEVICE Performing Organization Address City/[facility]/ZIP Co de Phone Number POC [facility] [address] PCLX [facility] POC [address] [place] [address] * (ABNORMAL) Hematology/Oncology - Blood, External Lab Results (08/05/2023 9:15 AM POULTRY TRIMMER) Only the most recent of2 resultswithin the time period is included. [facility] EXT Hemoglobin 6.6(A) 13.5 - 17.5 SCANNED REPORT EXT Hematocrit 21.2 SCANNED REPORT EXT Leukocytes 6.72 SCANNED REPORT EXT Absolute Neutrophil Count 5.80 SCANNED REPORT EXT Lymphs Absolute 0.20 SCANNED REPORT EXT Platelet Count 106 SCANNED REPORT Blood 08/05/2023 9:15 AM POULTRY TRIMMER Historical Provider LAB BLOOD NON ADD-ON SCANNED REPORT * IR Implanted Vascular Access Device Placement (07/22/2023 10:31 AM POULTRY TRIMMER) Anatomical Region Laterality Modality Chest, Pelvis, Abdomen, Vasc ular Interventional RST LOS, Vascular Interventional ARZ LOS, Vascular Interventional FLA LOS N/A X-Ray Angiography 07/22/2023 10:4 9 AM POULTRY TRIMMER Impressions 07/22/2023 11:33 AM POULTRY TRIMMER Placement of an 8 Fr slim Power Port-A-Cath. Ready for use. EP Narrative 07/22/2023 11:33 AM POULTRY TRIMMER EXAM: IR IMPLANTED VASCULAR ACCESS DEVICE PLACEMENT [...] Power Port-A-Cath. Ready for use. EP Bety Castro M.D. IMG IR PROCEDURES * CT ABDOMEN PELVIS W CON-Outside CT Body (07/17/2023 9:00 PM POULTRY TRIMMER) 07/17/2023 9:00 PM POULTRY TRIMMER Narrative [facility] - 07/17/2023 11:20 PM POULTRY TRIMMER This order has been created and auto-finalized [...] Advance Directives For more information, please contact: [phone] Documents on File Type Date Recorded Patient Conveyancer Expl anation Advance Directives 01/29/2020 3:09 PM Rachna omical Bequest to [facility] Advance Directives 08/24/2015 12:00 AM Le gacy [...] Answer Comments Full Code: Discussed Care Teams Resource Analyst Relationship Specialty Start Date End Date Elsewhere, Pcp PCP - General Internal Medicine 09/14/23
--- OUTSIDE RECORDS SUMMARY | 2023-10-05 12:49 | XMS_ITS ---
Author Name Unknown Organization [facility] Address [address] [place] [id number] Care Team Providers Care Passport Application Examiner Name Role Phone Elsewhere, Pcp Primary Care Provider Unavailabl e Active Problems Problem Noted Date Diagnosed Date Acute Respiratory Failure With Hypoxia Anemia Posthemorrhagic Acute (Blood Loss Anemia) 10/05/2023 Pneumatosis Cystoides Intestinalis 10/04/2023 Resection Small Bowel Status Post 10/04/2023 Severe Sepsis With Septic Shock 10/04/2023 Acidosis Metabolic 10/04/2023 Acidosis Lactic 10/04/2023 Hypomagnesemia 10/04/2023 Obstruction Intestinal 09/14/2023 Hypokalemia 08/05/2023 Anemia 08/05/2023 Thrombocytopenia 08/05/2023 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S., M.D. Linked Problems Lymphoma Non Hodgkins (HCC) Treatment Medications Current Day (Day 1 , Cycle 6 - Planned for 10/10/2023) Next Day (Day 2, Cycle 6 - Planned for 10/11/2023) cycloPHOSphamide (CYTOXAN)cycloPHOSphamide (CYTOXAN) IVPB in 250 mL (1 g vial) (CYTOXAN)DOXOrubicin (ADRIAMYCIN)polatuzumab vedotin-piiq (POLIVY)polatuzumab vedotin-piiq (POLIVY) IVPB in 100 mL (140 mg vial) solutionriTUXimab-pvvr (RUXIENCE)riTUXimab-pvvr (RUXIENCE) IVPB (RESTRICTED) (RITUXAN) cycloPHOSphamide 1,180 mg in NaCl 0.9% 309 mL IVPB (CYTOXAN)DOXOrubicin injection 80 mg (ADRIAMYCIN)polatuzumab vedotin-piiq 150 mg in NaCl 0.9% 107.5 mL IVPB (POLIVY)riTUXimab-pvvr 700 mg in NaCl 0.9% IVPB (RUXIENCE) No medications scheduled. Vascular Access Patency - Implanted Vascular Access Device (IVAD) Venous Non-Valved* Plan Start Date:07/23/2023 Linked Problems Lymphoma Non Hodgkins (HCC) Treatment Medications No medications scheduled. Past Plans Blood Plan Name Start Date Discontinue Date Treatment Medications Discontinue Reason Plan Provider *Blood Administration - Red Blood Cells (RBC) - For patients greater than 35 kg (Units) 3 09/04/2023 No medications scheduled. Therapy Complete Bev Gifford APRN, C.N.P., M.S.N. Flushes/Hydration Plan Name Start Date Discontinue Date Treatment Medications Discontinue Reason Plan Provider Vascular Access Patency - Peripheral Intravenous Catheter and Rapid Infusion Catheter 06/10/2023 07/23/2023 No medications scheduled. Unlisted - Infusion Therapy 1 Plan Name Start Date Discontinue Date Treatment Medications Discontinue Reason Plan Provider electrolyte administration 08/12/2023 08/13/2023 No medications scheduled. Therapy Complete Bety Munson M.D. Radiation Treatments * No radiation treatments are documented for this patient in [facility]. Treatments may have been administered in another system. Lifetime Dose Tracking * Chemical Lifetime Dose Automatic Entry Manual Entr y doxorubicin 244.979 mg/m2 (480 mg) 244.979 mg/m2 (480 mg) 0 mg/m2 (0 mg) Radiation 783.48 mGy 783.48 mGy 0 mGy Fluoro Time 43.38 minutes 43.38 minutes 0 minutes Pediatric total anthracycline 244.979 mg/m2 (480 mg) 244.979 mg/m2 (480 mg) 0 mg/m2 (0 mg) Adult total anthracycline 244.979 mg/m2 (480 mg) 244.979 mg/m2 (480 mg) 0 mg/m2 (0 mg) DAP (uGy-m2) 365.42 uGy-m2 365.42 uGy-m2 0 uGy-m2 Resolved Problems Problem Noted Date Diagnosed Date Resolved Date Diabetes Mellitus Type 2 02/10/2014 Malignant neoplasm of thyroid gland 09/10/2008 10/25/2020 Overview: Overview: Followed by Dr. Gil in [place] Suppressing thyroid with Synthroid currently 400 mcg Neuropathy Peripheral 2019 Hypothyroidism 10/22/2019
--- OUTSIDE RECORDS SUMMARY | 2023-10-05 12:49 | XMS_ITS | Encounter Summary ---
Author Name Unknown Organization [facility] Address [address] [place] [id number] Care Team Providers Care Janitor Helper Name Role Phone Elsewhere, Pcp Primary Care Provider Unavailabl e Encounter Details Date Type Department Care Team (Late st Contact Info) Description 10/05/2023 12:33 AM MATERIAL DAMAGE APPRAISER Anesthesia Event RST ROMB MAIN OR [address] [place] [phone] Carolee Ferguson M.D. [address] [place] [phone] Kayla Spencer M.D. [address] [place] [phone] Anesthesia Record Procedure Summary Procedure Name Responsible Anesthesiologist Anesthesia Start Time Anesthesia Stop Time EXPLORATION ABDOMINAL - TEMPORARY CLOSURE ABDOMINAL, SMALL BOWEL RESECTION Carolee Ferguson M.D. 10/05/23 0033 10/05/23 0154 Events Date Time Event Comment 10/05/2023 0033 An Start Machine/Equipme nt Checked Infection Precautions Followed Procedure/Site Verified NPO Status Verified Supine Standard ASA Monitors Applied 0041 Turnover to Proceduralist 0047 Proc Start 0130 Proc Fin 0132 Turnover to ANE Staff 0145 an stop data 0154 An End I completed my handoff to the receiving staff during which we 1. Identified the patient 2. Identified the responsible provider 3. Reviewed the pertinent medical history 4. Discussed the surgical course 5. Reviewed intra-op anesthesia management and issues during anesthesia 6. Set expectations for post-procedure period 7. Allowed opportunity for questions and acknowledgement of understanding. Meds Name Total rocuronium 10 mg/mL injection 50 mg vasopressin 20 Units/mL injection 9 Unit s hydrocortisone sodium succinate (PF) inj ection 100 mg (Solu-CORTEF) 100 mg fentaNYL 10 mcg/mL in NaCl 0.9% 250 mL i nfusion (SUBLIMAZE) 135 mcg insulin regular 1 Unit/mL in NaCl 0.9% 1 00 mL infusion 0.81 Units norepinephrine 16 mcg/mL in D5W 250 mL i nfusion 1.61 mg phenylephrine 80 mcg/mL in NaCl 0.9% 250 mL infusion 4.29 mg vasopressin 20 unit/100 mL ( 0.2 unit/mL) in D5W 100 mL infusion (PITRESSIN) 3.24 Units Lactated Ringers Free Drip 100 mL * Agents No agents on file. * Blood No blood administrations on file. Lines, Drains, and Airways Type Details Placement Removal Implanted Port Single Lumen 07/22/23; 1023; Permanent (tunneled, implanted); Yes; Yes; Yes; Yes; Chlorhexidine (Preferred); Yes; Cap, Gloves, Gown, Large drape, Mask (Clinician), Mask (All others in room); N/A; Polyurethane; Right; Chest; Sutured; Dr. Freeman/Dr. Guevara 07/22/23 1023 by Leighton Gotti, R.N. Wound 08/07/23; 0800; Y; Traumatic; Toe 2nd; Anterior, Left 08/07/23 0800 by Carolee Gonzalez, R.N. Wound 09/24/23; 0830; Y; Traumatic; Toe 1st, great; Anterior, Right 09/24/23 0830 by Jaquan Monroy, RJohannaN. NG/OG Tube 09/27/23; 1230; Perc utaneous endoscopic, Gastrostomy-jejunostomy; No; Bumper; 20 Fr (10 fr. J extension); 4 cm (100cm on J extension); Quadrant (abdomen), Left, Upper; Small bore (ENFit??) 09/27/23 1230 by Alyson Cabral, R.N. Indwelling Urinary Catheter Placement Date: 10/04/23; Placement Time: 1042; Inserted by: JAVI U/T; Type: Coude, Latex, Temperature probe; Size: 16 Fr.; Balloon Size: 10 mL; Urine Returned: Yes 10/04/23 1042 by Omar Figueroa ETT Placement Date: 09/10 03/02; Placement Time: 1319 (created via procedure documentation); Mask Ventilation: Easy mask; Technique: Video laryngoscopy; Type: Standard ETT; Single Lumen Tube Size: 7.5 mm; Cuffed: Yes; Location: Oral; Grade View: Grade 1; Insertion Attempts: 1; Placement Verification: Bilateral breath sounds, Positive ETCO2, Symmetrical chest wall movement 10/04/23 1319 by Keena Diggs APRN, CRNA NG/OG Tube 10/04/23; 1322; Naso gastric; 16 Fr; Right 10/04/23 1322 by Keena Diggs APRN, CRNA Peripheral IV Placement Date: 09/10 03/02; Placement Time: 1334; Catheter Size: 18 G; Orientation: Right; Location: Wrist 10/04/23 1334 by Keena Diggs APRN, CRNA Arterial Line Placement Date: 09/10 03/02; Placemnt Time: 1345 (created via procedure documentation); Size: 20 G; Orientation: Left; Location: Brachial; Site Prep: Chlorhexidine (Preferred); Technique: Ultrasound guidance; Insertion Attempts: 2; Securement: Securement dressing, Securement device 10/04/23 1345 by Jose De Jesus Felix M.D. Wound 10/04/23; 1416; N; I ncision; Abdomen; Medial, Upper 10/04/23 1416 by Lisandra Casey M.S.N., R.N. CVC Triple Lumen Placement Date: 09/10 03/02; Placement Time: 1630 (created via procedure documentation); Hand Hygiene: Yes; Site Prep: Chlorhexidine (Preferred); Sterile Barrier Used: Cap, Gloves, Gown, Large drape, Mask (Clinician), Mask (All others in room); Size: 7 Fr; Type: Temporary (non-tunneled, non-implanted); Line Length(cm): 16; Orientation: Right; Location: Subclavian; Technique: Ultrasound guidance; Insertion Attempts: 1; Securement: Securement dressing 10/04/23 1630 by Mary New APRN, C.N.P. Peripheral IV Placement Date: 09/10 03/02; Placement Time: 1839; Catheter Size: 20 G; Orientation: Distal, Left, Lower, Posterior; Location: Forearm; Site Prep: Chlorhexidine (Preferred); Technique: Anatomical landmarks; Inserted by: [place]; Insertion Attempts: 1 10/04/231839 by Carisa Barahona, RDanuta documented in this encounter Social History Tobacco Use Types Packs/Day Years Used Date Smoking Tobacco: Former Cigarettes 1 22 Q uit: 02/07/1989 Passive Smoke Exposure: Never Smokeless Tobacco: Former Snuff, Chew Quit: 04/18/2023 Alcohol Use Standard Drinks/Week Comments Not Currently 3 (1 standard drink = 0.6 oz pur e alcohol) [facility] Utilities Answer Date Recorded In the past 12 months has [employer], oil, or water [employer] threatened to shut off services in your [...] week 01/10/2023 How often do you attend [facility] or episcopal services? Never 01/10/2023 Do you belong to any clubs o r organizations such as pentecostal groups, unions, fraternal or athletic groups, or [...] Answer Date Recorded PHQ-2 Score 0 04/25/2020 [facility] Occupat [facility] - Occupational Stress Questionnaire Answer Date Recorded [...] your living situation today? I have a [facility] place to live 09/15/2023 Education Answer Date Recorded What is the highest level of school you have completed or the highest degree you have received? Associate degree: occupational, technical, or vocational program 07/17/2019 Sex and Gender Information Value Date Recorded Sex Assigned at Male 02/18/2018 8:44 AM CDT Gender Identity Male 02/18/2018 8:44 AM CDT Sexual Orientation Straight 02/25/2018 3: 30 PM CDT documented as of this encounter OR Notes * Anesthesia Postprocedure Evaluation - Kayla Spencer M.D. 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 Responsible Provider: Carolee Ferguson M.D. Anesthesia Type: general ASA Status: 5 - Emergent Anesthesia Type: general Last vitals Vitals Value Taken Time BP Temp Pulse 112 10/05/23 0201 Resp 20 10/05/23 0201 SpO2 98 % 10/05/23 0201 Vitals shown include unfiled device data. Please reference Vitals flowsheet for most recent vital signs. Anesthesia Post Evaluation Patient Disposition: monitored unit, expectation for recovery time deferred to receiving unit (ICU) Cardiovascular status: hemodynamics (HR & BP) unacceptable requiring ongoing treatment (On phenylephrine, vasopressin, and norepinephrine infusions - stable from prior to OR) Temperature: normothermic Oxygen requirements: assisted ventilation (non-invasive or mechanical ventilation) with additional oxygen (ETT in place, on vent) Level of consciousness: sedated and difficult to awaken, patient unable to participate in evaluation Pain score: pain unable to be assessed Post Op nausea/vomiting: none Hydration status: euvolemic Comments: Transported from OR to ICU on monitored cart with portable ventilator with RT assistance. RIAL DAMAGE APPRAISER documented in this encounter Plan of Treatment Upcoming Encounters Date Type Department Care Team (Latest Contact Info) Description 10/06/2023 9:04 AM MATERIAL DAMAGE APPRAISER - 10/06/2023 11:24 AM MATERIAL DAMAGE APPRAISER Surgery [facility] MAIN OR [address] [place] [phone] Cameron Saenz M.D. [address] [place] [phone] ABDOMINAL EXPLORATION, REMOVAL ABTHERA, POSSBLE BOWEL RESECTION, PROCEED INDICATED 10/11/2023 7:00 AM MATERIAL DAMAGE APPRAISER Appointment Department of Laboratory Medicine and Pathology, [facility], in [address] [phone] Arti Epstein M.B.B.S. [address] [place] [phone] 10/11/2023 9:00 AM MATERIAL DAMAGE APPRAISER Office Visit Division of Hematology in [address] [phone] Arti Epstein M.B.B.S. [address] [place] [phone] 10/11/2023 10:00 AM MATERIAL DAMAGE APPRAISER Infusion Department of Oncology in [address] [phone] Bev Gifford APRN, C.N.P., M.S.N. [address] [place] [phone] 11/19/2023 10:00 AM CDT Office Visit Division of Endocrinology in [place], [place] [address] [place] [phone] West Mendoza APRN, C.N.P., M.S. [address] [place] [phone] 11/19/2023 2:30 PM CDT Comprehensive Visit Division of Hepatobiliary and Pancreas Surgery in [place], [place] [address] [place] [phone] Wesley Hamilton M.D. [address] [place] [phone] Scheduled Procedures Name Priority Associated Diagnoses Date/Ti me LAPAROTOMY - ABDOMINAL WASHOUT Ischemia Intestinal With Stricture (HCC) 10/06/2023 9:04 AM MATERIAL DAMAGE APPRAISER documented as of this encounter Visit Diagnoses Not on filedocumented in this encounter Administered Medications Active Administered Medications - up to 3 most recent administrations Medication Order MAR Action Action Date Dose Rate Site fentaNYL 10 mcg/mL in NaCl 0.9% 250 mL infusion (SUBLIMAZE) 25-100 mcg/hr (2.5-10 mL/hr), intravenous, Continuous, Starting on Sat10/04/23 at 1600, 2,500 mcg in 250 mL bag, Type: Titrate, Initiate at: 25 mcg/hr if more than 3 boluses used in 1 hour., Titrate at: 25 mcg/hr if 3 boluses are used within 1 hour., Goal: For both pain AND sedation: Pain less than 4 of 10, Maximum dose of 100 mcg/hr before contacting prescriber. For sedation - refer to titratable arousal order for RASS goal. Rate/Dose Verify 10/05/2023 12:00 PM MATERIAL DAMAGE APPRAISER 50 mcg/hr 5 mL/hr Rate/Dose Verify 10/05/2023 11:00 AM MATERIAL DAMAGE APPRAISER 50 mcg/hr 5 mL/h r Rate/Dose Change 10/05/2023 10:19 AM MATERIAL DAMAGE APPRAISER 50 mcg/hr 5 mL/h r norepinephrine 16 mcg/mL in D5W 250 mL infusion 0-0.3 mcg/kg/min ? 71 kg Dosing weight (0-79.875 mL/hr, rounded to 0-79.88 mL/hr), intravenous, Continuous, Starting on Sat10/04/23 at 1545, Protect from light and avoid extravasation, Patient Type: Sepsis, Initiate at: 0.05 mcg/kg/min, Titrate at: 0.05 mcg/kg/min. every 5 min., Wean at: 0.01 mcg/kg/min. every 5 min., Goal: MAP 65-75 New Bag 10/05/2023 12:10 PM MATERIAL DAMAGE APPRAISER 0.3 mcg/kg/min 79.9 mL/hr Rate/Dose Verify 10/05/2023 12:00 PM MATERIAL DAMAGE APPRAISER 0.3 mcg/kg/min 79 .9 mL/hr Rate/Dose Verify 10/05/2023 11:00 AM MATERIAL DAMAGE APPRAISER 0.3 mcg/kg/min 79 .9 mL/hr phenylephrine 80 mcg/mL in NaCl 0.9% 250 mL infusion 0-1 mcg/kg/min ? 75.6 kg Dosing weight (0-56.7 mL/hr), intravenous, Continuous, Starting on Sat10/04/23 at 2130, 20 mg in 250 mL, Patient Type: Sepsis, initiate at: 0.5 mcg/kg/min., Titrate at: 0.1 mcg/kg/min. every 5 min., Goal: MAP 65-75 Rate/Dose Verify 10/05/2023 12:00 PM MATERIAL DAMAGE APPRAISER 0.4 mcg/kg/min 22.7 mL/hr Rate/Dose Change 10/05/2023 11:49 AM MATERIAL DAMAGE APPRAISER 0.4 mcg/kg/min 22 .7 mL/hr Rate/Dose Verify 10/05/2023 11:00 AM MATERIAL DAMAGE APPRAISER 0.5 mcg/kg/min 28 .4 mL/hr vasopressin 20 unit/100 mL (0.2 unit/mL) in D5W 100 mL infusion (PITRESSIN) 0.04 Units/min (12 mL/hr), intravenous, Continuous, Starting on Sat10/04/23 at 1545, 20 units in 100 mL Rate/Dose Verify 10/05/2023 12:00 PM MATERIAL DAMAGE APPRAISER 0.04 Units/min 12 mL/hr Rate/Dose Verify 10/05/2023 11:00 AM MATERIAL DAMAGE APPRAISER 0.04 Units/min 12 mL/hr New Bag 10/05/2023 10:40 AM MATERIAL DAMAGE APPRAISER 0.04 Units/min 12 mL/hr Inactive Administered Medications - up to 3 most recent administrations Medication Order MAR Action Action Date Dose Rate Site hydrocortisone sodium succinate (PF) injection 100 mg (Solu-CORTEF) 100 mg, intravenous, Once, On Sat10/04/23 at 2330, For 1 dose, IV push over 30 seconds per 100 mg (For doses 500 mg or less) Given 10/05/2023 12:33 AM MATERIAL DAMAGE APPRAISER 100 mg insulin regular 1 Unit/mL in NaCl 0.9% 100 mL infusion 0-25 Units/hr (0-25 mL/hr), intravenous, Continuous Infusion: Per Instructions PRN, Initiate infusion for glucose greater than 150 mg/dL, Starting on Sat10/04/23 at 1634, NOTIFY PRESCRIBER IF: Glucose is not within target range after 4 hours of IV insulin infusion. Patient starts eating. (50% of clear liquid diet or more) Patient starts bolus tube feedings. The insulin infusion has been either 0 to 1 unit/hour for 3 consecutive hours to consider orders to transition from IV to SQ long acting insulin. Infuse insulin into an existing line of a compatible IV solution and Y site insulin infusion into existing line below the infusion pump. Insulin infusion and existing line of compatible IV solution should each run as a primary line on separate infusion pumps at the ordered infusion rates. If no compatible IV solutions are ordered, infuse into an existing line of 0.45% NaCL infusion at 20 ml/hr. 100 Units in 100 mL, Calculator: Goal Range: 120-150 mg/dl, Starting Insulin Infusion Factor: 0.03 Rate/Dose Verify 10/05/2023 5:03 AM MATERIAL DAMAGE APPRAISER 0.6 Units/hr 0.6 mL/hr Rate/Dose Verify 10/05/2023 5:00 AM MATERIAL DAMAGE APPRAISER 0.6 Units/hr 0.6 m L/hr Rate/Dose Change 10/05/2023 4:15 AM MATERIAL DAMAGE APPRAISER 0.6 Units/hr 0.6 m L/hr Lactated Ringer's intravenous, Continuous Infusion: Per Instructions PRN, Starting on 10/05/23 at 0029, Anesthesia Intra-op New Bag 10/05/2023 12:29 AM MATERIAL DAMAGE APPRAISER rocuronium injection (ZEMURON) intravenous, As needed, Starting on 10/05/23 at 0029, Anesthesia Intra-op Given 10/05/2023 12:29 AM MATERIAL DAMAGE APPRAISER 50 mg vasopressin injection (PITRESSIN) intravenous, As needed, Starting on 10/05/23 at 0029, Anesthesia Intra-op Given 10/05/2023 1:50 AM MATERIAL DAMAGE APPRAISER 2 Units Given 10/05/2023 12:55 AM MATERIAL DAMAGE APPRAISER 2 Units Given 10/05/2023 12:53 AM MATERIAL DAMAGE APPRAISER 1 Units documented in this encounter Additional Health Concerns Infection Onset Date Last Indicated Resolved Time Protective Environment 05/17/2023 05/17/2023 documented as of this encounter Care Teams Janitor Helper Relationship Specialty Start Date End Date Elsewhere, Pcp PCP - General Internal Medicine 09/14/23 documented as of this encounter
--- OUTSIDE RECORDS SUMMARY | 2023-10-05 12:50 | XMS_ITS | Encounter Summary ---
Author Name Unknown Organization [facility] Address [address] [place] [id number] Care Team Providers Care Shearing Machine Feeder Name Role Phone Elsewhere, Pcp Primary Care Provider Unavailabl e Reason for Visit * Reason Comments Abnormal ECG Abdominal Pain Encounter Details Date Type Department Care Team (Late st Contact Info) Description 10/04/2023 11:45 PM TRAPEZE ARTIST - 10/05/2023 2:57 AM TRAPEZE ARTIST Surgery [facility] MAIN OR [address] [place] [phone] Omar Hennessy M.D. [address] [place] [phone] EXPLORATION ABDOMINAL - TEMPORARY CLOSURE ABDOMINAL, SMALL BOWEL RESECTION Social History Tobacco Use Types Packs/Day Years Used Date Smoking Tobacco: Former Cigarettes 1 22 Q uit: 02/07/1989 Passive Smoke Exposure: Never Smokeless Tobacco: Former Snuff, Chew Quit: 04/18/2023 Alcohol Use Standard Drinks/Week Comments Not Currently 3 (1 standard drink = 0.6 oz pur e alcohol) [facility] Utilities Answer Date Recorded In the [...] 01/10/2023 How often do you attend chur or orthodox services? Never 01/10/2023 Do you belong to any clubs o r organizations such as jewish groups, unions, fraternal or athletic groups, or [...] Answer Date Recorded PHQ-2 Score 0 04/25/2020 [facility] [place] of Occupat ional Health - Occupational Stress [...] your living situation today? I have a [facility] place to live 09/15/2023 Education Answer Date [...] PM CDT documented as of this encounter Last Filed Vital Signs Vital Sign Reading Time Taken Comments Blood Pressure 87/68 10/05/2023 12:00 AM TRAPEZE ARTIST Pulse 103 10/05/2023 2:45 AM TRAPEZE ARTIST Temperature 37 ??C (98.6 ??F) 10/05/2023 2:45 AM TRAPEZE ARTIST Respiratory Rate 22 10/05/2023 2:45 AM TRAPEZE ARTIST Oxygen Saturation 97% 10/05/2023 2:45 AM TRAPEZE ARTIST Inhaled Oxygen Concentration - - Weight 84.4 kg (186 lb 1.1 oz) 10/05/2023 2:37 A M TRAPEZE ARTIST Height 172 cm (5' 7.72) 10/04/2023 6:00 PM TRAPEZE ARTIST Body Mass Index 28.53 10/04/2023 6:00 PM TRAPEZE ARTIST documented in this encounter Progress Notes * Honey Cabral R.R.T., L.R.T. - 10/05/2023 2:08 AM CST 10/05/23 0200 Internal Patient Transport Internal Patient Transport From OR Transport Equipment Assisted Ventilation Transport Time (minutes) 30 Respiratory Therapy provided patient transport from OR 105 to [place] [address] using assisted ventilation settings: CMV R 18/Vt 470/+10/30%, Conversation with in- room provider prior to transport; patient transported without incident. Electronically signed by: Honey Cabral R.R.T., L.R.T. 10/05/23 2:09 AM TRAPEZE ARTIST EZE ARTIST * Honey Cabral R.R.T., L.R.T. - 10/05/2023 2:07 AM CST 10/05/23 0030 Internal Patient Transport Internal Patient Transport To OR Transport Equipment Assisted Ventilation Transport Time (minutes) 30 Respiratory Therapy provided patient transport from [place] [address] [facility] using assisted ventilation settings: SPONT 10/+10/30%. Conversation with in-room provider prior to transport; patient transported without incident. Electronically signed by: Honey Cabral R.R.T., L.R.T. 10/05/23 2:08 AM TRAPEZE ARTIST EZE ARTIST * Kimberley Sierra APRN, C.N.P., D.N.P. - 10/05/2023 1:57 AM CST SUBJECTIVE BRIEF SUMMARY: Mr. 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 He was admitted 10/04 with acute abdominal pain and vomiting. CT imaging showed diffuse portal venous gas and pneumatosis intestinalis in the small bowel. He proceeded urgently to the OR where findings included a patchy ischemic segment of small bowel, 85 cm was resected and the patient was left in discontinuity. Vascular surgery was in the operating room and Doppler the mesentery revealing multiphasic signal in the proximal/mid SMA. He was admitted to the SICU intubated, sedated on multiple vasopressors. Procedures: - 10/04: 85 cm small bowel resected, left in discontinuity - 10/05: 45 cm small bowel resected, left in discontinuity (approximately 120 cm of small bowel remaining) INTERVAL EVENTS: - Urgent return to the OR where 45 cm of patchy, ischemic small bowel was resected. - Blood cultures + for streptococcus - 3 L crystalloid, 50 grams albumin, 2 units PRBC for resuscitation - Ongoing high vasopressor requirements - Stress dose steroids - patient seen and examined, chart reviewed - discussed with Dr. Hennessy/Enrique and SICU team on multidisciplinary rounds OBJECTIVE I have reviewed the current vital sign data as applicable. VITAL SIGNS Temperature: [34.7 ??C-37.6 ??C] 37 ??C Heart Rate: [103-128] 105 Resp Rate: [10-28] 20 Blood Pressure: (80-163)/(51-90) 96/51 Arterial Line BP: (76-139)/(42-61) 91/52 FiO2 (%): [30 %-60 %] 30 % SpO2: [91 %-100 %] 97 % Flow Rate (L/min): [2 L/min] 2 L/min Pulse Rate: [102-128] 105 I/O last 3 completed shifts: In: 76645.1 [Enteric (NG/OG) Tube:40] Out: 2743 [Urine:1388; Emesis or Enteric Tube:375; Blood:30] PHYSICAL EXAMINATION Physical Exam General: No acute distress, resting in bed Neurologic: PERRL, anicteric sclera Cardiovascular: S1, S2. No murmur. Regular rate, rhythm. Cap refill < 3 seconds. Pulmonary: Lung sounds coarse bilaterally, no wheeze, rales, rhonchi. Non labored. ETT secured, trachea midline. Gastroenterology: Bowel sounds +. Firm, diffuse tenderness, + guarding, rebound. No masses. PEG/J tube noted Extremities: no peripheral edema. HARRISON. Pedal pulses 2 + bilaterally. Skin: No rashes, sores, ulcerations. Incision with ABThera in place Psychologic: Affect: appropriate, not anxious, mildly altered, GARO hallucination. DIAGNOSTICS: I have reviewed relevant laboratory, imaging, and other diagnostics as applicable. ASSESSMENT / PLAN PLAN BY SYSTEMS: HEMODYNAMICS/CV: - HR: 100-1teens; SBP: 80s; MAP: >60 - EKG: ST on bedside telemetry - Troponin: 74, delta negative - ECHO: 05/2023 EF 75%, moderate MV stenosis, RVSP 43, severely enlarged left atria - Vasopressors: nor-epi 0.3, phenylephrine 0.6, vasopressin - Lactate: 3.5 (4.0) - repeat TTE today given shock state - wean vasopressors as able to maintain MAP >65 - holding home ASA NEUROLOGIC: - GCS: 10T; RASS: -2; CAM ICU: GARO - Pain medications: fentanyl drip - Sleep: none - Delirium: none - Sedation: propofol and ketamine - Sedation vacation: Yes - wean propofol as able - titrate and adjust as needed to maintain pain <4, RASS 0 to -2 PULMONARY: - Vent settings: SIMV, 30%, RR 22, TV 470, Peep 10, PS 7 - AB, 34, 7.34, -8, 18 - CXR: pending - Encourage aggressive pulmonary hygiene - Wean to spont if tolerated RENAL: - I/O: +12 L since admission; +12 L yesterday - UOP: 1.3 L - Creatinine: pending (0.70) - Cystatin-C: pending - Electrolytes: pending - IVF: LR at 250 mL/hr until 12 pm - continue close monitoring of UOP, Cr, electrolytes - frequent volume assessments ID: - Tmax: 37.3 - WBC: pending (3.2) - Antibiotics: zosyn, fluconazole; duration TBD pending further OR findings - Cultures: - 1/26: streptococcus - 1 dose of vanc given positive blood cultures - repeat cultures pending - consider ID consult pending further culture speciation - continue home acyclovir HEME: - Hgb: pending (8.6) - Plts: pending (166) - TEG: normal - INR: 1.3 - Xa: pending - continue moderate intensity heparin nomogram with concern for mesenteric ischemia, nonocclusive thrombin casts right IJ VASCULAR ACCESS: - PIV - right chest port, needed for vasopressors - left radial art line, needed for hemodynamic monitoring - R IJ not for central access, consider replacement today with left IJ vs. IR GI/NUTRITION: - Diet: NPO, strict while in discontinuity - Last bowel movement: CERTIFIED SUBSTANCE ABUSE COUNSELOR - Bowel regimen: none given discontinuity - NGT: 375 mL - PEG/J: to gravity 0 mL output - Drains: 950 mL - likely return to the OR later today vs. Tomorrow pending clinical condition ENDOCRINE: - Blood sugars 120-130 with q1h checks overnight - transitioned to moderate SSI q4h - continue stress dose steroids - home levothyroxine ordered with IV conversion through Saturday. Re-evaluated for PO dosing. 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 - 10/04/2023 5:55 PM CST Pharmacist Progress Note HPI: 72 y.o. male. Presented to the ED on 10/04 with abdominal pain and N/V in setting of known nearcomplete duodenal obstruction secondary to malignant mass. Found to be tachycardic and leukopenic in the ED. 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 S/p Exparel CV: ST and HD supported by NE/PULL OVER, was on ATII but now off. Holding ASA/statin Resp: ETT on SIMV 40% from the OR Neph: BL Scr ~0.6-0.7. Scr is at BL, UOP during the OR case, replacing lytes ID: Afeb since admission and leukopenic. Blood cxs pending. D1 pip/tazo, flucon and continues prophacyclo GI/Hepatic/Nutrition/Endocrine: S/p exploratory laparotomy with small bowel resection and temporaryclosure on 10/04 for patchy ischemic bowel. Total of 85cm resected and left in discontinuity. NG in place. LFTs ok. Glucose >180, starting insulin infusion Prophylaxis: SQH, chlorhex, famot ASSESSMENT / PLAN Small bowel ischemia, s/p exploratory laparotomy with small bowel resection and temporary closure on 10/04 Bowel in discontinuity, strict NPO Converting acyclovir to IV and levothyroxine to IV at 168mcg M/W/F/Sun and 84mcg T/Th/Sat Covering intra-abdominal contamination with pip/tazo and fluconazole Pharmacy Specific Dosing Protocols and Consultations: Pharmacist Antimicrobial Dosing Indication: Intra-abdominal infection and Prophylaxis(HSV) Antibiotics: Piperacillin/tazobactam, Acyclovir, and Fluconazole Plan to continue pip/tazo at 3.375gm q6h and fluconazole at 400mg q24h. Converted acyclovir to IV at 400mg bid, this is close to the 250mg/m2/dose recommendation for immunocompromised patients for the prevention of HSV noted in UpToDate and Yasmeen et al. Isidro Deng. 2009. 15:[id number]. Jorge Gómez Pharm.D., R.Ph. Pager [phone] EZE ARTIST * Jeaneth Gonzalez M.D. - 10/04/2023 5:00 PM CST I have rounded with and discussed the care of Mr. Hola Lau with the resident/DECK MATE-PA team.Please see the ICU team's documentation from today for further details as I reviewed pertinent history, physical exam, labs, and imaging and agree with the history, physical exam, assessment, and plan. Brief Summary: ICU admission note for 7 [facility] SICU. 72-year-old male. Critically ill. Presented to the ED this morning with diffuse abdominal pain of abrupt onset. 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 The last cycle wasDece2022. Preoperative abdominal CT revealed diffuse portal venous gas as well as pneumatosis intestinalis of the small bowel. There was no free fluid. The inferior vena cava looked very small, consistent with hypovolemia. Operative findings included a patchy ischemic segment of mid small bowel. 85 cm were resected and the patient was left in discontinuity. Temporary abdominal closure placed. Patient arrived from the OR with for pressors, phenylephrine, norepinephrine, vasopressin and a ngiotensin. He was also hypothermic. At the conclusion of the procedure, he was given hydrocortisone, 75 mg. There was very little blood loss with the procedure. Here in the ICU, we will place a central venous line in the right internal jugular vein through which we will continue aggressive fluid resuscitation as well as have access for vasoactive medications. Bedside caval ultrasounds to guide adequacy of resuscitation. There is a near brachial arterial line, placed in the mid forearm. As he is resuscitated we will try to replace it at the wrist in the radial artery so as to minimize risk of vascular complication. Broad- spectrum antibiotics. We will add fluconazole given baseline immunosuppressed state. It may be that no additional corticosteroids are necessary once he is resuscitated; this subject will be revisited. Coagulation studies will be done and if abnormal will be repleted. Urine output will be followed closely. Serial lactate and S CV O2 measurements to guide resuscitative efforts. DVT and stress ulcer prophylaxis measures. Avoid medications such as propofol that will present additional oxidative stress to the liver given the insultof the sepsis today. NPO. Once pressors are durably weaned, can initiate nutritional support with TPN as there would likely be a prolonged NPO interval. Multimodality analgesia; ketamine would provide both analgesia as well as sedation. Serial glucose values with insulin as needed but also watch for hypoglycemia given sepsis. Warmed IV fluids and warming blanket for hypothermia. I have reviewed the current vital sign data as applicable. DIAGNOSTICS I have reviewed relevant laboratory, imaging, and other diagnostics as applicable. ASSESSMENT AND PLAN #1 Pneumatosis Cystoides Intestinalis Goals of care: Full code. Surrogate decision maker: His significant other. Critical care time 40 minutes. This is time spent at this critically ill patient's bedside activelyinvolved in patient care as well as the coordination of care and discussions with the patient's family. This does not include any procedural time which has been billed separately. EZE ARTIST documented in this encounter H&P Notes * Mary New APRN, C.N.P. - 10/04/2023 5:06 PM CST SUBJECTIVE CHIEF COMPLAINT Hola Lau is a 72 y.o. male who presents with acute onset abdominal pain. HISTORY OF PRESENT ILLNESS 72-year-old male with history of stage IV diffuse large B-cell lymphoma most recent chemotherapy cycle on 08/12/2023, chronic anemia, duodenal mass status post GJ feeding tube placement on 09/27/2023, rheumatoid arthritis type 2 diabetes who presented this morning with abdominal pain and vomiting. Hereports having diarrhea overnight but prior to that feeling well. He contacted EMS, administered nitro for potential chest pain with no relief in symptoms. On arrival to the emergency room he continued to have bilious emesis, peritonitic on physical exam and tachycardic. CT imaging revealed diffuse portal venous gas, pneumatosis intestinalis in the small bowel. He was taken to the operating room by General surgery. In the OR findings included a patchy ischemic segment of small bowel, 85 cm was resected and the patient was left in discontinuity. Vascular surgery was in the operating room and Doppler the mesentery revealing multiphasic signal in the proximal/mid SMA. An ABThera was placed. While in the OR the patient required 1 unit RBCs, 2 L normal saline, 500 of albumin. He required 3 pressors, norepinephrine 0.2, vasopressin 0.04 and phenylephrine at 0.5. He was immediately admitted to the intensive careunit postop. I reviewed home medications: Tylenol p.r.n. Acyclovir 400 mg b.i.d. Zyloprim 300 mg daily Amitriptyline 12.5 mg q.h.s. Aspirin 81 mg daily Jardiance 10 mg before breakfast Ixekizumab monthly Levothyroxine 224 mcg 4 times weekly and 112 mcg 3 times a week Mag oxide 400 mg daily Metformin 1000 mg daily Zofran as needed Simvastatin 20 mg q.h.s. Tamsulosin 0.4 mg daily The following portions of the patient's history were reviewed and updated as appropriate: allergies, current medications, family history, medical history, surgical history, and problem list. REVIEW OF SYSTEMS Pertinent items are noted in HPI; all other review of systems was negative. OBJECTIVE VITAL SIGNS I have reviewed the current vital sign data as applicable to this admission. PHYSICAL EXAM General appearance: intubated, mechanically ventilated, chronically ill appearing, and in no acute distress Neurologic: sedated Chest: intubated, mechanically ventilated Abdomen: temporary abdominal closure w/ serosanguinous output, soft, feeding tube G/J placed to gravity drainage, and NGT to suction Extremities: warm, well perfused and edema absent, DP pulses palpable Skin: normal without ulcer and pale DIAGNOSTICS I have reviewed relevant laboratory, imaging, and other diagnostics as applicable to this admission. 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 We were able to wean the phenylephrine immediately and have since remained on norepinephrine and vasopressin. Ongoing fluid resuscitation will be performed given lactic acidosis and base deficit of -7. Last echo was obtained on 05/15/2023 with moderate mitral valve stenosis, trivial regurgitation, moderate aortic valve stenosis, an EF of 75%, mildly enlarged RV, severely enlarged left atria. EKG immediately postop shows sinus tachycardia with a QTC of 463. Baseline troponin 74 postop, we will follow and trend. Goal to wean vasopressors over the next 24 hours. Holding home simvastatin and aspirin. NEUROLOGIC: Sedated on arrival, GCS 3 T, RASS -4. Currently on a fentanyl infusion at 25 mcg/hr given strict NPO status. We will utilize propofol as needed to allow for vent synchrony, so far we have not needed.We will use IV Tylenol p.r.n. Holding home amitriptyline PULMONARY: Intubated for the OR, previously on room air. On arrival ventilator on SIMV / 18 / 450 / 10 / 8 / 50%. Plan to transition to spontaneous when patient is more awake. Blood gas postoperative shows goodoxygenation with an underlying metabolic acidosis. Chest x-ray obtained showing lower lung opacifications consistent with known fibrotic lung disease. Will wean ventilator as able tonight. RENAL: Received modest fluid resuscitation in the operating room w/ adequate UOP of 850 mL. Received 1 L immediately on arrival to the ICU followed by LR at 150 mL/hour. We will trend lactate and base deficit and utilize POCUS for IVC assessment and fluid needs. Baseline electrolytes show a BUN of 29 and a creatinine of 0.66. Hypomagnesemia of 1.5 was repleted and hypokalemia of 3.8 was repleted. HEME/ID: Chronic anemia. Hemoglobin stable at 9.9 with a platelet count of 193. Hemoglobin trend over the past month averages 9-10. No anticoagulation. Hypothermic to 35.1 on arrival, leukopenic with and WBCs 2.8. Blood cultures obtained this morning,no growth to date. We will continue Fluconazole and Zosyn, and holding acyclovir. Given immunosuppression, would recommend continuing with broad-spectrum antibiotics and protective isolation. VASCULAR ACCESS: Left brachial arterial line PIV x3 Right chest port Newly placed RIJ GI/NUTRITION: Strict NPO. Nasogastric tube in place to low continuous suction given bowel discontinuity. 85 cm ofsmall bowel was resected. Plans to return to the operating room in the next 24-48 hours. We will address nutrition recommendations over the weekend. For now, will remain NPO. 09/27/2023 patient had a PEG-J tube placed for nutrition and venting given duodenal mass and stenosis. ENDOCRINE: Type 2 diabetes, blood glucoses have remained elevated. Insulin infusion initiated. Recommend continuing over the next 24 hours while critically ill and NPO. If pressor requirements do not wean, we will initiate stress dose steroids. Holding home Synthroid dosing, if NPO status persists we will administer IV dosing. MUSCULOSKELETAL/SKIN: Temporary abdominal closure, serosanguineous output. No other acute skin issues, head of bed greater than 30??. No activity restrictions. Does have noted chronic foot drop We will consult PMR when clinically stable PROPHYLAXIS: - DVT: Heparin 5000 t.i.d. - GI: Famotidine 20 mg b.i.d. CODE STATUS: Full Code, not discussed by SICU staff DISPOSITION: SICU, critically ill Life partner Rhona is surrogate decision maker. EZE ARTIST documented in this encounter Procedure Notes * Mary Nwe APRN, C.N.P. - 10/04/2023 4:25 PM CSTAssociated Order(s): Invasive Line Post-Procedure Diagnose(s): Peritonitis Acute Generalized (HCC) Invasive Line Performed by: Mary New APRN, C.N.P. Authorized by: Mary New APRN, C.N.P. Care team members present 1. Jeaneth Gonzalez M.D. Location: ICU/PCU PROCEDURE DETAILS: Line type: central venous Laterality: right Location: jugular internal Location details: new site Patient position: Trendelenburg Age group: adult Line Type: temporary (non-tunneled, non-implanted) Introducer: no Lumen(s): triple lumen Catheter diameter: 7 Fr Catheter insertion depth (cm): 16 cm Site the catheter was advanced to (this is the intended location and does not need to be proven by radiologic exam): central venous circulation Technique: ultrasound guided Ultrasound guidance: image not saved Vessel transduced: yes Number of attempts: 1 CONSENT Consent obtained: [...] utilized as applicable for the procedure.: yes Skin preparation: chlorhexidine SEDATION / ANESTHESIA Anesthesia method: already under sedation POST-PROCEDURE DETAILS: Procedure completed successfully: yes Line secured: secured with sutureless device Chlorhexidine disc around insertion site and under catheter with slight turn: yes Notable Events: none Patient tolerance of procedure: successful EZE ARTIST Associated attestation - Jeaneth Gonzalez M.D. - 10/04/2023 5:00 PM TRAPEZE ARTIST I was present for the entirety of the procedure(s). * Jayna Albert M.D. - 10/04/2023 10:29 AM CSTAssociated Order(s): Critical Care Procedure Critical Care Performed by: Jayna Albert M.D. Authorized by: Jayna Albert M.D. Critical care provider statement: Critical care total time (minutes): 45 Critical care time was exclusive of: separately billable procedures and treating other patients andteaching time CPR was performed on this patient: no Critical care was necessary to treat or [...] examination of patient, review of old charts, re-debi luation of patient's condition, ordering and review of radiographic studies, ordering and review oflaboratory studies, ordering and performing treatments and interventions and obtaining history frompatient or surrogate Jayna Albert M.D. 10/04/23 1119 EZE ARTIST documented in this encounter Consult Notes * Aaliyah Chacko M.B.BJohannaS. - 10/04/2023 12:09 PM CSTAssociated Order(s): General Surgery consult (hospital) General Surgery consult ([facility]) Referring Provider: Jayna Albert M.D. Today's date: 10/04/2023 Reason for Consult: abdominal pain History of Presenting Illness: Mr. Lau is a pleasant 72 y.o. male with a history of diffuse large B-cell lymphoma (s/p chemotherapy last Jo-R-CP cycle 08/12/23) who presents abdominal pain and vomiting. He has a known near complete duodenal obstruction secondary to a malignant mass. He was hospitalized in September 2023 for nausea and vomiting intolerance to oral intake with nasal jejunal feeding tube placement and later gastrostomy tube with jejunal extension was placed. In the ED the patient is tachycardic to 120s, SBP 140-160s, afebrile. He is leukopenic with WCC 2.9, anemic hemoglobin 8.9, normal platelets 152. Lactate is 1.8. CT shows massive portal venous gas extending into the mesenteric venous systems, and extending into the external iliac and proximal common femoral veins. There were multiple loops of dilated mid to distal small bowel with no obvious transition point. There appears to be a cecal bascule. There is extensive pneumatosis. No definitive pneumoperitoneum. The patient also has luis calcification and new occlusion of the proximal SMA, however the SMA does reconstitute distally. There was a large CHOLO and patent celiac trunk. DLBCL History 04/2023 -postprandial pain, nausea vomiting, p.o. intolerance with CT scan showing nonobstructive masslike thickening of 3rd portion of the duodenum, mildly dilated CBD. EGD demonstrated necroinflammatory duodenal ulcer 04/2023-2nd EGD done with push enteroscopy identified large circumferential infiltrated/ulcerative mass with biopsies returning with findings consistent with a B-cell lymphoma 05/2023 - p.o. intolerance, EGD placed NJ-tube with Dobbhoff gastric aspiration port. Lymph node biopsy confirmed stage IV DLBCL, 4 doses of methylprednisolone resolved obstruction 06/2023 -Preston-CHP initiated, interval PET scan demonstrated alvaro decrease in mass like thickening of duodenum 07/2023 - 4 cycles Preston-R-CHP, interim PET showed good response at lymph nodes but concern of residual focal uptake 3rd portion of duodenum 08/2023-EGD showed ulcerated duodenal stenosis and 3rd portion of duodenum with 10 mm inner diameter, unable to transverse due to scope length 09/2023 - 6th/final cycle of Preston-R-CHP was omitted due to hospitalization Pertinent History Review: MEDICAL HISTORY - thyroid cancer - T2DM - rheumatoid arthritis - CVA - CKD SURGICAL HISTORY - total thyroidectomy (1992) CURRENT MEDICATIONS Pertinent Medications: aspirin 81 mg, metformin, statin, allopurinol. Denies use of blood thinners or immunomodulators including steroids. ALLERGIES/CONTRAINDICATIONS No allergies to antibiotics FAMILY HISTORY Non-contributory SOCIAL HISTORY He was retired and lives with his partner in [place]. ROS: as mentioned in HPI, otherwise negative Past Medical History: Diagnosis Date Apnea Sleep Obstructive 1994 uses CPAP Arthritis psoriatic Cataract Chronic Kidney Disease NOS Diabetes Mellitus NOS Dysphagia Hyperlipidemia Hypertension NOS Hypothyroidism Malignant Neoplasm Of Thyroid (HCC) Malignant Neoplasm Of Thyroid Follicular (HCC) 08/24/2015 Nausea And Vomiting 04/29/2023 Neuropathy Peripheral Nodule Thyroid Obesity Body Mass Index 30-39.9 Adult Psoriasis Skin Cancer (Primary) NOS Sleep Apnea Stroke (HCC) Transient Ischemic Attack 2002 Past Surgical History: Procedure Laterality Date DECOMPRESSION SPINE - POSTERIOR LUMBAR Bilateral 10/23/2019 Procedure: L4-L5 laminectomy; Surgeon: Ricardo Saucedo M.D.; Location: [facility] EYE SURGERY 1985 cataracts HAND SURGERY 2019 tophi removal left thumb OTHER SURGICAL HISTORY ROTATOR CUFF REPAIR Bilateral THYROID SURGERY 1992 two surgeries TONSILLECTOMY 1950 VASECTOMY 1978 OBJECTIVE Vitals Temperature: [36.5 ??C] 36.5 ??C Heart Rate: [105-122] 118 Resp Rate: [11-27] 19 Blood Pressure: (113-163)/(68-90) 146/76 SpO2: [92 %-100 %] 100 % Pulse Rate: [105-119] 118 Physical exam: General: acutely ill, pale HEENT: normocephalic, atraumatic Cardiopulmonary: labored breathing, on 3L nasal cannula. Port in place. Heart rate regular, tachycardic Abdomen: distended, diffuse tenderness, no rebound. GJ present. Skin: Dry Extremities: No significant edema noted Diagnostics: I have reviewed diagnostic labs, imaging, or other testing as appropriate Imaging: CT Abdomen Pelvis with IV Contrast Result Date: 10/04/2023 Impression: 1. Massive portal venous gas and gas throughout the mesenteric venous system with gas extending into the external iliac and proximal common femoral veins. 2. Multiple loops of dilated midand distal small bowel without transition point. Extensive pneumatosis and lack of enhancement concerning for ischemia. No free fluid in the abdomen or pelvis. 3. Interval placement of a percutaneousgastrojejunostomy tube. Critical findings discussed with Jayna Albert M.D. ([id number]) at 10:20 AM on 10/04/2023. ASSESSMENT / PLAN In summary, Hola Lau is a 72 y.o. male with a history of diffuse large B-cell lymphoma (s/p chemotherapy last in 08/2023) who presents abdominal pain and vomiting with massive portal venous gas, pneumatosis, small bowel obstruction, and probable cecal bascule. He is leukopenic and anemic. Discussed with the patient and his the gravity of his disposition which suggests bowel ischemia and possible perforation. We will proceed emergently to the OR for exploratory laparotomy. I explained the role of temporary abdominal closure. He will be transferred to the surgical ICU post-operatively and will likely remain intubated. We will use his port for central access and have an arterial line placed. He has received Zosyn. Type and cross has been sent. Plan were discussed with Dr. Lazar, who was in agreement. Please page [phone] (HSS-A) with any questions or concerns. Deyanira March. EZE ARTIST Associated attestation - Rudy Lazar M.D. - 10/04/2023 12:37 PM TRAPEZE ARTIST Patient seen and examined with resident(s) and ANDREI'(s). I agreed with the assessment and plans. Concerning peritonitis with history, exam, lab and imaging. Peritoneal on exam. Bowel ischemia and possible cecal bascule. I discussed the suboptimal prognosis in this patient with acute abdomen in the setting of lymphoma and chemotherapy with the patient and his partner Rhona. I propose ex lap with all possible indicated procedures including but limited to bowel resection, etc. Patient has highrisks of all surgical complications. Risks include bleeding, infection, injury to surrounding structures, anastomotic leak, multisystem organ failure due to this event. Patient will be admitted to surgical ICU. It is possible that we will leave the bowel in discontinuity with temporary closure. Patient likely will need to return to OR multiple times. Questions answered. Wishes to proceed. Rudy Lazar M.D. documented in this encounter Nursing Notes * Joel Bales R.RMindy., L.R.T. - 10/05/2023 6:12 AM CST Patient is a 72 y.o. male Height: 172 cm admitted on 10/04/2023 Principal Problem: Pneumatosis Cystoides Intestinalis PMH: Past Medical History: Diagnosis Date Apnea Sleep Obstructive 1995 uses CPAP Arthritis psoriatic Cataract Chronic Kidney Disease NOS Diabetes Mellitus NOS Dysphagia Hyperlipidemia Hypertension NOS Hypothyroidism Malignant Neoplasm Of Thyroid (HCC) Malignant Neoplasm Of Thyroid Follicular (HCC) 08/24/2015 Nausea And Vomiting 04/29/2023 Neuropathy Peripheral Nodule Thyroid Obesity Body Mass Index 30-39.9 Adult Psoriasis Skin Cancer (Primary) NOS Sleep Apnea Stroke (HCC) Transient Ischemic Attack 2002 Alert Information: Shift Summary: 6:12 AM Patient remains intubated and mechanically ventilated. Patient has a 7.5 ETT secured 23 @ teeth, with variable vent settings overnight from SPONT before going to OR to SIMV after. Patient is currently on SIMV RR 22 Vt 470 PEEP 10 FiO2 30%. No respiratory concerns overnight. Airway: ETT Standard ETT (Active) Placement Date/Time: 10/04/23 (c) 1319 Mask Ventilation: Easy mask Technique: Video laryngoscopy ETT Type: Standard ETT Tube Size: 7.5 mm Cuffed: Yes Location: Oral Airway secured at (Initial measurement) : 23 Grade View: Grade 1 Airway Inse... ETT Standard ETT-Currently secured at (cm): 22 ETT Standard ETT-Measured from: Teeth Oxygen Therapy: $Delivery Method: Ventilator FiO2 (%): 30 % Flow Rate (L/min): 2 L/min Ventilation: FiO2 (%): [30 %-60 %] 30 % S RR: [18 Breaths/min-22 Breaths/min] 22 Breaths/min S VT: [450 mL-470 mL] 470 mL PEEP (cmH2O): [5 cm H20-10 cm H20] 10 cm H20 NV SUP: [7 cm H20-10 cm H20] 7 cm H20 Mean Airway Pressure: [13 cm H2O-16 cm H2O] 13 cm H2O Ventilator Mode: SIMV PEEP (cmH2O): 10 cm H20 FiO2 (%): 30 % Peak Airway Pressure: 24 cm H2O Compliance (mL/cm H2O): 71.9 mL/cm H2O Skin integrity checked: Skin clean and intact with no areas of redness on the face, lips, tongue, neck or ears. ETT repositioned Q4 hours. Hemodynamic monitoring: Arterial Line 10/04/23 Left Brachial (Active) Placement Date/Time: 10/04/23 (c) 1345 Procedural Pause Completed: Yes Catheter Time Out Checklist Completed: Yes Hand Hygiene Performed Prior to Insertion: Yes Site Prep: Chlorhexidine (Preferred) Sterile Barriers Used : Cap;Gloves;Gown;Large d... Recent ABG: Recent Labs 10/05/23 0428 PO2 ART 139 H PCO2 ART 34 L PH ART 7.34 L HCO3 ART 18 L BASE EXC ART -8 L Plan of Care: Continue to monitor respiratory status while in the ICU, maintain airway patency, and provide mechanical ventilation. RT to maintain, manage and wean ventilation and oxygenation per protocols and ABGvalues. Suction as needed. Administer respiratory medications as ordered. Roderick Bales R.R.T., L.R.T. 10/05/23 6:12 AM EZE ARTIST * Jaimee Houston R.R.T., AreliRMaicol - 10/04/2023 6:37 PM CST Alert Information: Plan of Care: Continue to monitor and assess the patient's respiratory status while in the ICU. Maintain 7.5 ETT and suction PRN. RT to manage and wean vent per ICU protocol and ABG values. Shift Note: 1525 The patient arrived intubated from the OR. Initial ventilator settings are SIMV RR 18,Vt 450, PEEP 10, FiO2 60%. RT assisted with right central line placement. 1549 Initial ABG showed pH 7.29, pCO2 39, pO2 123, HCO3 18. FiO2 was decreased to 40%. Principal Problem Pneumatosis Cystoides Intestinalis ETT Standard ETT (Active) Placement Date/Time: 10/04/23 (c) 1319 Mask Ventilation: Easy mask Technique: Video laryngoscopy ETT Type: Standard ETT Tube Size: 7.5 mm Cuffed: Yes Location: Oral Airway secured at (Initial measurement) : 23 Grade View: Grade 1 Airway Inse... Arterial Line 10/04/23 Left Brachial (Active) Placement Date/Time: 10/04/23 (c) 1345 Procedural Pause Completed: Yes Catheter Time Out Checklist Completed: Yes Hand Hygiene Performed Prior to Insertion: Yes Site Prep: Chlorhexidine (Preferred) Sterile Barriers Used : Cap;Gloves;Gown;Large d... Ventilator Info: Ventilator Mode: SIMV FiO2 (%): 40 % PEEP (cmH2O): 10 cm H20 Compliance (mL/cm H2O): 53 mL/cm H2O Recent Labs 10/04/23 1549 PO2 ART 123 H PCO2 ART 39 PH ART 7.29 L Skin integrity checked: Reposition ETT every 4 hour and PRN. EZE ARTIST documented in this encounter OR Notes * Op Note - Omar Hennessy M.D. - 10/05/2023 12:47 AM CST Pre-op Diagnosis Ischemia Mesenteric (HCC) Post-op Diagnosis Ischemia Mesenteric (HCC) Professor Of Family Medicine A delinquent tax collection assistant actively participated and was necessary for one or more of the following: opening, exposure and visualization during the case, maintaining hemostasis, wound closure resulting in itssafe and expeditious completion. Findings Distended and Ischemic patches with few full-thickness necrosis on small-bowel --left in discontinuity after decompressing the contents Proximal 120 cm small bowel healthy from ligament of Treitz Distal 45 cm of small bowel with full-thickness necrosis from ileocecal valve resected--left in discontinuity Thick walled and very distended gallbladder---looked viable Large bowel dilated throughout till sigmoid colon, transverse colon looked dusky Doppler signals on proximal SMA and affected small bowel mesentery root positive but lost of signalnear the bowel wall Possible venous congestion and thrombosis Complications None Operative Note Narrative The patient was brought into the operating room and transferred to the operating table. The patientunderwent general anesthetic induction and intubation without complication. After optimal positioning and padding of all pressure points, the relevant areas were prepped and draped in standard fashion. After surgical pause we removed the ABThera dressing and evaluated small bowel. We found above-mentioned findings. Pictures taken. At this juncture we decided to resect 45 cm of small bowel with full-thickness necrosis from ileocecal valve. We used 60 STEFANIE stapler to resect and LigaSure energy device to divide mesentery. The specimen sent for permanent pathology. Stump of distal ileum left in discontinuity. We checked Doppler signals on proximal SMA which was positive. The affected small bowel mesentery signals were positive as well but we lost signals near the affected small bowel wall. We think that due to ongoing ischemia now he has developed venous congestion and possible thrombosis. We will start anticoagulation. Small-bowel was very distended and dilated hence we decompress the smallbowel with the enterotomy and closed the enterotomy with a stapler. Hemorrhagic slough aspirated from small-bowel lumen. Gallbladder was found to be very distended and thick-walled but looked viable.We performed thorough irrigation and after hemostasis we applied ABThera using 2 sponges. Good sealwas secured at the end. At the end the procedure all the instrument and sponge count was correct. Patient tolerated procedure well and was transferred in stable condition to ICU with pressor support. Omar Hennessy M.D. EZE ARTIST * Brief Op Note - Juan Mahmood M.D., M.S. - 10/05/2023 12:47 AM TRAPEZE ARTIST Pre-op Diagnosis Ischemia Mesenteric (HCC) Post-op Diagnosis Ischemia Mesenteric (HCC) Findings As expected. Complications None Midline laparotomy incision extension inferiorly, 46 cm of ileal resection, diffuse scattered smallbowel ischemia, 60-120 cm of viable small bowel identified, distended gallbladder, otherwise viablelarge bowel, ABThera replaced Juan Mahmood M.D., M.S. EZE ARTIST * Op Note - Aaliyah Chacko M.B.B.S. - 10/04/2023 1:48 PM CST Pre-op Diagnosis Peritonitis Acute Generalized (HCC) Post-op Diagnosis Peritonitis Acute Generalized (HCC) Professor Of Family Medicine A delinquent tax collection assistant actively participated and was necessary for one or more of the following: opening, exposure and visualization during the case, maintaining hemostasis, wound closure resulting in itssafe and expeditious completion. Findings Midline laparotomy. Patchy ischemic appearing small bowel from mid-jejunum to proximal ileum, with loss of doppler signals proximal to the small bowel-mesentery interface. Strong doppler signal at mid SMA Resection of total 85 cm of small bowel. 111 cm of remaining ileum from distal transection site to ileocecal valve. Colon was viable. Temporary abdominal closure with ABThera Complications None Operative Note Narrative Patient was brought to the operating room and placed supine on the operating table. General anesthesia was induced: upon induction, patient developed a pressors requirement which continued throughoutthe case. Additional access was obtained with two large bore peripheral IVs, and arterial line. Patient was positioned supine, arms out with optimal padding of all pressure points. Patient was prepped and draped in the usual sterile fashion and a procedural pause was completed identifying the correct patient, correct procedure, alfredito-operative antibiotics, allergies, and any safety concerns. An upper midline incision was made with No. 10 blade. Dissection was continued down to the fascia using electrocautery. The fascia was elevated with Kochers and opened sharply with Metzenbaum scissors. The peritoneum was grasped and similarly opened sharply with [place]. The fascia and peritoneal openings were elongated the length of the laparotomy incision. There was no evidence of zulma bowel perforation. Some clear inflammatory fluid was suctioned out. We began by running the small bowel from the ligament of treitz to the ileocecal valve. The proximal small bowel was pink and appeared healthy. From the mid-jejunum to the proximal ileum there was patchy ischemia, with a pale, woody appearance. The cecum was redundant but not volvulized. The colon was evaluated and appeared healthy without evidence of malperfusion. At this time Dr. Morton of vascular surgery scrubbed in and evaluated mesenteric perfusion. There was a multiphasic signal in the proximal/mid SMA. Guided by the doppler signals and gross bowel appearance, we identified a 60 cm segment of bowel that was clearly ischemicand not viable with absent doppler signals 4 cm proximal to the mesenteric-small bowel interface. This segment of jejunum was resected with proximal and distal division performed with 60 mm blue loadGIA stapler. The mesentery was divided flush with the bowel using LigaSure. The patient continued to have increasing pressor requirements. We re-evaluated the small bowel and the small bowel immediately distal to our distal resection site had evidence of patchy ischemia. We therefore resected an additional 25 cm of small bowel. Total length of resected bowel was 85 cm. There was 111 cm of remaining small bowel from our distal transection site to the ileocecal valve. The abdomen was surveyed once more: we were satisfied with hemostasis. The remaining small bowel was of questionable viability so we elected to pefform a temporary abdominal closure with plan for re-exploration in 24 to 48 hoursdepending on clinical course. The nasogastric tube was palpated int he stomach. An ABTHERA was placed. The patient required 1 unit RBC intra-operative and at the completion of the case was in triple pressors with norepinephrine 0.2, vasopressin 0.05, and phenylephrine at 0.5. Instrument and sponge counts were counted and correct at the end of the procedure. The patient was transferred to the ICU intubated, in a stable but critical state. Deyanira March. EZE ARTIST Associated attestation - Rudy Lazar M.D. - 10/04/2023 3:50 PM TRAPEZE ARTIST I have scrubbed and supervised the case to its entirety. I agreed with the above resident's operative finding and report. Patchy ischemic small bowel from mid-jejunum to distal jejunum/proximal ileum without clear dopplersignal. This was resected. Remaining small bowel with some questionable areas in ileum and mid jejunum. Cecum to distal transverse colon dilated but viable and healthy. No obvious bascule or volvulus. Remaining colon was healthy and viable. No perforation. No bowel content spillage. ABTHERA was placed. Please see resident's note for other detail. Patient tolerated the procedure well without immediate complications. He remains intubated and sedated. Patient's condition remains guarded. Rudy Lazar M.D. 10/04/2023 documented in this encounter ED Notes * Melva Jc - 10/04/2023 10:20 AM CST Family member, Sera, updated with situation and plan of care. Will arrive in about 45 minutes. Melva Jc 10/04/23 1021 EZE ARTIST * Ramon Hennessy M.D. - 10/04/2023 8:18 AM CST SUBJECTIVE CHIEF COMPLAINT/REASON FOR VISIT Abnormal ECG and Abdominal Pain HISTORY OF PRESENT ILLNESS 72-year-old male with a history of diffuse large B-cell lymphoma, thyroidectomy due to malignant neoplasm of the thyroid, presenting with several hour history of nausea, vomiting, diarrhea. He had a jejunal tube placed last week with positioning confirmed several days later by x-ray and fluoro. Presents actively vomiting with severe, low abdominal pain. States that it feels like his last bowel obstruction. Denies fevers, chills, recent illness. Emesis is nonbloody, nonbilious at this time. Has had bowel obstructions in the past but was deemed not a surgical candidate due to malnutrition and his active cancer. REVIEW OF SYSTEMS OBJECTIVE Initial Vitals Temp Pulse Heart Rate Resp BP SpO2 Pain Score PHYSICAL EXAMINATION Constitutional: Nursing note and vitals reviewed. He appears not lethargic. No distress. HENT: Head: Normocephalic and atraumatic. No signs of injury. Mouth/Throat: Mucous membranes are moist. Eyes: Conjunctivae are normal. Right eye exhibits no discharge. Left eye exhibits no discharge. Neck: Neck supple. Cardiovascular: Normal rate and regular rhythm. Edema: no edema noted Pulmonary/Chest: Effort normal. No stridor. No tachypnea. He exhibits no retraction. Abdominal: Soft. exhibits no distension. There is abdominal tenderness (Low abdominal tenderness). There is guarding. Musculoskeletal: General: No deformity or edema. Normal range of motion. Cervical back: Normal range of motion and neck supple. Neurological: Alert and oriented to person, place, and time. He exhibits normal muscle tone. Skin: Skin is warm, dry, intact and normal color. He is not diaphoretic. Psychiatric: He has a normal mood and affect. Behavior is normal. Judgment and thought content normal. ASSESSMENT/PLAN Assessment and Plan 72-year-old male with a history of diffuse large B-cell lymphoma presents emergency department actively vomiting with low abdominal pain. Recent J-tube placement. Suspect he is likely obstructed. Will set his J-tube dissection, administer antiemetics and analgesics. CT abdomen pelvis pending. CT abdomen pelvis concerning for large volume portal venous gas and hepatic pneumatosis. Will likely need surgical intervention. surgical team promptly the patient bedside. Will take him to operating. Final Diagnoses: as of 10/05/23 0019 Volvulus Cecal (HCC) Ramon Hennessy M.D. Resident 10/05/23 0020 EZE ARTIST * Jayna Albert M.D. - 10/04/2023 8:16 AM CST I have personally seen and examined this patient. I have fully participated in the care of this patient. I have reviewed all clinical information including history, physical exam, orders, and plan. Albino with the note of the resident. This is a pleasant 72-year-old male with a past medical history significant for DLBCL diagnosed in 04/2023 with last dose reduction of cytoxan and doxorubicin on 08/12/23 (held end of Aug 31 due to anemia), and recently diagnosed duodenal obstruction s/p PEG with J extension placed 09/27/23 presentingto the ED with abdominal pain. Patient reports frequently having to run to the bathroom throughout the night with diarrhea. He wason his J-tube feeding throughout the night into this morning when around 0530 he developed acute onset severe diffuse abdominal pain and vomiting. He denies any fevers or chills. No chest pain or shortness of breath. He states this feels similar to his prior bowel obstruction. He called 911 this morning and a BLS crew responded and administered nitroglycerin at approximately 0805 for potential chest pain with no relief in symptoms. On arrival here he has intermittent bilious emesis. Abdomen is diffusely tender with guarding surrounding PEG. Focal peritonitis near PEG. No erythema surrounding PEG. Port in right upper chest. Tachycardic to low 100s on arrival. Patient appears significantly uncomfortable in bed. In summary, 72-year-old male with a complex past medical history presenting to the emergency department with acute onset severe abdominal pain and new bilious emesis concerning for a recurrent bowel obstruction versus perforation given signs of peritonitis. We will treat with analgesia and antiemetics. We attempted suction of the PEG given his bilious emesis and concern for obstruction, however had no significant output and therefore turned off suction. Patient proceeded to CT. Upon my review of CT imaging, I noted diffuse large volume gas throughout the liver. I did call Radiology and discussed the case with them before final read was obtained. Upon patient's arrival from CT, we proceeded with resuscitation given concern that he would acutely decompensate with his CT findings. Nursing was asked to obtain 2 additional peripheral IV points of access given we had only a single-lumen port access. As they were unable to find points of IV access, difficulty IV team was called. We started IV fluids and IV Zosyn. General surgery was consulted immediately upon CT discussionwith Radiology. I also informed the general surgery manager by phone regarding my concerns that patient would acutely decompensate given his CT findings. Analgesia was difficult and patient did not respond to multiple pushes of IV fentanyl and Dilaudid. General surgery did evaluate him promptly and proceeded directly to the OR. We did offer to place an arterial line in the ED, however given ORwas ready this was not placed in the ED setting. ED Course as of 10/04/23 1534 SatOct 04, 2023 0828 ECG 12 Lead I have personally reviewed the ECG. Sinus tachycardia with sinus arrhythmia. Normal axis. No ST elevation. 0903 Hemoglobin(!): 8.9 At baseline 0906 White Blood Cell Count(!): 2.9 New leukopenia 0906 Lactate, POCT: 1.80 0911 INR: 1.1 0944 Magnesium: 1.8 0944 Hepatic Function Panel(!): Bilirubin, Total, S 0.4 Bilirubin, Direct, S 0.2 Aspartate Aminotransferase (AST), S 24 Alanine Aminotransferase (ALT), S 20 Alkaline Phosphatase, S 150(!) Albumin, S 3.6 Protein, Total, S 5.3(!) 0944 Anion Gap, P(!): 17 0944 Creatinine(!): 0.73 0945 Basic Metabolic Panel(!): Potassium, P 4.1 Sodium, P 138 Chloride, P 99 Bicarbonate, P 22 Anion Gap, P 17(!) BUN (Blood Urea Nitrogen), P 31(!) Creatinine 0.73(!) Estimated GFR (eGFR) >90 Calcium, Total, P 8.8 Glucose, P 200(!) 0945 Lipase, S(!): 11 0953 On my review of the patient's CT imaging, there appears to be diffuse air throughout the liverwhich is new compared to prior CT from September 14, 2023. I have discussed this concern with nursing as well as need to obtain vitals immediately upon return from radiology in anticipation of need for resuscitation 1003 Discussed with radiologist. Large volume air throughout portal vein and pneumatosis. Good positioning of PEG and J tube. Hyperenhancing loops of bowel. Ischemic bowel concern. Severe pneumatosisof small bowel. No longer enhances. No obvious obstruction. 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 1019 General surgery has been consulted. I am personally paging the senior compensation consultant to make them aware of the urgency of this case [address] Saenz in OR who will have his alternate come evaluate patient 1034 CT Abdomen Pelvis with IV Contrast 1. Massive portal venous gas and gas throughout the mesenteric venous system with gas extending into the external iliac and proximal common femoral veins. 2. Multiple loops of dilated mid and distal small bowel without transition point. Extensive pneumatosis and lack of enhancement concerning for ischemia. No free fluid in the abdomen or pelvis. 3. Interval placement of a percutaneous gastrojejunostomy tube. 1109 Plan to go to OR Final Diagnoses: as of 10/04/23 1534 Volvulus Cecal (HCC) Jayna Albert M.D. 10/04/23 1534 Jayna Albert M.D. 10/05/23 0552 Jayna Albert M.D. 10/05/23 0556 EZE ARTIST documented in this encounter Plan of Treatment Upcoming Encounters Date Type Department Care Team (Latest Contact Info) Description 10/06/2023 9:04 AM TRAPEZE ARTIST - 10/06/2023 11:24 AM TRAPEZE ARTIST Surgery [facility] OR [address] [place] [address] [phone] Cameron Saenz M.D. [address] [place] [phone] ABDOMINAL EXPLORATION, REMOVAL ABTHERA, POSSBLE BOWEL RESECTION, PROCEED INDICATED 10/11/2023 7:00 AM TRAPEZE ARTIST Appointment Department of Laboratory Medicine and Pathology, [facility], in [place], [place] [address] [place] [phone] Arti Epstein M.B.B.S. [address] [place] [phone] 10/11/2023 9:00 AM TRAPEZE ARTIST Office Visit Division of Hematology in [place], [place] [address] [place] [phone] Arti Epstein M.B.B.S. [address] [place] [phone] 10/11/2023 10:00 AM TRAPEZE ARTIST Infusion Department of Oncology in [place], [place] [address] [place] [phone] Bev Gifford APRN, C.N.P., M.S.N. [address] [place] [phone] 11/19/2023 10:00 AM CDT Office Visit Division of Endocrinology in [place], [place] [address] [place] [phone] West Mendoza APRN, C.N.P., M.S. [address] [place] [phone] 11/19/2023 2:30 PM CDT Comprehensive Visit Division of Hepatobiliary and Pancreas Surgery in [place], [place] [address] [place] [phone] Wesley Hamilton M.D. [address] [place] [phone] Pending Results Name Type Priority Associated Diagnoses Date/Time Bacteria / Joel Culture, Blood #1 Microbiology STAT 10/04/2023 8:4 1 AM TRAPEZE ARTIST Bacteria / Joel Culture, Blood # 2 Microbiology STAT 10/04/2023 8: 50 AM TRAPEZE ARTIST Prepare Red Blood Cells, 2 Units Blood Bank STAT 10/02/2023 5:51 AM TRAPEZE ARTIST Surgical Pathology, Frozen Lab Pathology and Cytology Routine Peritonitis Acute Generalized (HCC) 10/04/2023 2:26 PM TRAPEZE ARTIST Echo Transthoracic (TTE) Echocardiography STAT 10/05/2023 9:17 AM TRAPEZE ARTIST Bacteria / Joel Culture, Blood #1 Microbiology Routine 10/05/2023 4:4 5 AM TRAPEZE ARTIST Bacteria / Joel Culture, Blood #2 Microbiology Routine 10/05/2023 5:0 3 AM TRAPEZE ARTIST Prepare Red Blood Cells Blood Bank Routine 10/02/2023 5:51 AM TRAPEZE ARTIST Scheduled Orders Name Type Priority Associated Diagnoses Order Schedule Surgical Pathology, Frozen Lab Pathology and Cytology Routine Peritonitis Acute Generalized (HCC) Release Upon Ordering for 1 Occurrences starting 10/04/2023 until 10/13/2023 Pulse oximetry, continuous Intensive Care Unit (ICU) status Respiratory Care Routine respiratory u se [id number] ask reminder at 8am and 8pm until discontinued starting 10/04/2023 Mechanical Ventilator - Adult; SIMV + Pressure Support - Volume; Respiratory Therapy; 0.4; 10; > 90%; Respiratory Therapy; 7.35 - 7.45; 6; 35 - 45 Respiratory Care Routine respiratory us e only - 0700, 1100, 1500, 1900, 2300 until discontinued starting 10/04/2023, 6 completed Airway Care Respiratory Care Routine respira tory use only - 0800, 1999 until discontinued starting 10/04/2023, 3 completed Echo Transthoracic (TTE) Echocardiography STAT Once for 1 Occurrences starting 10/04/2023 until 10/04/2023 Bacteria / Joel Culture, Blood #1 Microbiology Routine Routine lab collection (next collection) for 1 Occurrences starting 10/05/2023 until 10/05/2023 Bacteria / Joel Culture, Blood #2 Microbiology Routine Routine lab collection (next collection) for 1 Occurrences starting 10/05/2023 until 10/05/2023 CBC without Differential Lab Routine Daily for 7 Days starting 10/05/2023 until 10/11/2023, 1 completed Surgical Pathology, Frozen Lab Pathology and Cytology Routine Ischemia Mesenteric (HCC) Release Upon Ordering for 1 Occurrences starting 10/05/2023 until 10/14/2023 Glucose, POCT Point of Care Testing-Docked Device Timed 0000, 0400, 0800, 1200, 1600, 2000 until discontinued starting 10/05/2023, 2 completed Glucose, POCT Point of Care Testing-Docked Device Timed As needed until discontinued starting 10/05/2023 Basic Metabolic Panel Lab Routine AM collection: 0405 (default) for 1 Occurrences starting 10/06/2023 until 10/06/2023 DX Chest Portable 1 View Imaging RAD - Routine (most inpatients and all outpatients) Once for 1 Occurrences starting 10/06/2023 until 10/06/2023 Blood Gas with Coox, Arterial Lab Routine AM collection: 0405 (default) for 1 Occurrences starting 10/06/2023 until 10/06/2023 Magnesium Lab Routine AM collection: 0405 (default) for 1 Occurrences starting 10/06/2023 until 10/06/2023 Phosphorus Inorganic Lab Routine AM collection: 0405 (default) for 1 Occurrences starting 10/06/2023 until 10/06/2023 Heparin Anti-Xa Assay Lab Timed Once at specified time for 1 Occurrences starting 10/05/2023 until 10/05/2023 Scheduled Procedures Name Priority Associated Diagnoses Date/Ti me LAPAROTOMY - ABDOMINAL WASHOUT Ischemia Intestinal With Stricture (HCC) 10/06/2023 9:04 AM TRAPEZE ARTIST documented as of this encounter Procedures The patient is currently admitted. The information in this section might not be complete until the patient is discharged. Procedure Name Priority Date/Time Associated Diagnosis Comments LACTATE, B Timed 10/05/2023 12:01 PM TRAPEZE ARTIST PATIENT STATUS Timed 10/05/2023 12:01 PM TRAPEZE ARTIST ABG W/COOX Timed 10/05/2023 12:01 PM TRAPEZE ARTIST GLUCOSE POCT, B Routine 10/05/2023 11:45 AM TRAPEZE ARTIST GLUCOSE POCT, B Routine 10/05/2023 7:21 AM TRAPEZE ARTIST HEPARIN LEVEL ANTI-XA ASSAY, P Timed 10/05/2023 7:21 AM TRAPEZE ARTIST GLUCOSE POCT, B Routine 10/05/2023 6:15 AM TRAPEZE ARTIST DX CHEST PORTABLE 1 VIEW RAD - Routine (most inpatients and all outpatients) 10/05/2023 6:07 AM TRAPEZE ARTIST GLUCOSE POCT, B Routine 10/05/2023 5:02 AM TRAPEZE ARTIST PATIENT STATUS Timed 10/05/2023 4:28 AM TRAPEZE ARTIST ABG W/COOX Timed 10/05/2023 4:28 AM TRAPEZE ARTIST CALCIUM, IONIZED, S/B Timed 10/05/2023 4:28 AM TRAPEZE ARTIST CYSTATIN C WITH EGFR Timed 10/05/2023 4:27 AM TRAPEZE ARTIST CBC WITHOUT DIFFERENTIAL, B Routine 10/05/2023 4:27 AM TRAPEZE ARTIST PHOSPHORUS (INORGANIC), S Timed 10/05/2023 4:27 AM TRAPEZE ARTIST MAGNESIUM, S Timed 10/05/2023 4:27 AM TRAPEZE ARTIST LACTATE, B/P Timed 10/05/2023 4:27 AM TRAPEZE ARTIST BASIC METABOLIC PANEL, S/P Timed 10/05/2023 4:27 AM TRAPEZE ARTIST TRANSFUSE RED BLOOD CELLS Routine 10/05/2023 4:22 AM TRAPEZE ARTIST GLUCOSE POCT, B Routine 10/05/2023 4:12 AM TRAPEZE ARTIST GLUCOSE POCT, B Routine 10/05/2023 3:15 AM TRAPEZE ARTIST TRANSFUSE RED BLOOD CELLS Routine 10/05/2023 3:09 AM TRAPEZE ARTIST GLUCOSE POCT, B Routine 10/05/2023 2:10 AM TRAPEZE ARTIST LACTATE, B STAT 10/05/2023 12:52 AM TRAPEZE ARTIST PATIENT STATUS STAT 10/05/2023 12:52 AM TRAPEZE ARTIST SODIUM, B STAT 10/05/2023 12:52 AM TRAPEZE ARTIST ABG W/COOX STAT 10/05/2023 12:52 AM TRAPEZE ARTIST POTASSIUM, B STAT 10/05/2023 12:52 AM TRAPEZE ARTIST GLUCOSE, WHOLE BLOOD STAT 10/05/2023 12:52 AM TRAPEZE ARTIST CALCIUM, IONIZED, S/B STAT 10/05/2023 12:52 AM TRAPEZE ARTIST GLUCOSE POCT, B Routine 10/05/2023 12:02 AM TRAPEZE ARTIST GLUCOSE POCT, B Routine 10/04/2023 11:19 PM TRAPEZE ARTIST ACTIVATED PARTIAL THROMBOPLASTIN TIME (APTT), P STAT 10/04/2023 10:08 PM TRAPEZE ARTIST GLUCOSE POCT, B Routine 10/04/2023 10:07 PM TRAPEZE ARTIST CBC WITHOUT DIFFERENTIAL, B STAT 10/04/2023 10:03 PM TRAPEZE ARTIST BASIC METABOLIC PANEL, S/P STAT 10/04/2023 10:03 PM TRAPEZE ARTIST THROMBOELASTOGRAPH, KAOLIN, B STAT 10/04/2023 9:59 PM TRAPEZE ARTIST GLUCOSE POCT, B Routine 10/04/2023 9:03 PM TRAPEZE ARTIST US UPPER EXTREMITY VEINS RIGHT RAD - Semiurgent (Fast; most ED patients; some inpatients) 10/04/2023 8:40 PM TRAPEZE ARTIST GLUCOSE POCT, B Routine 10/04/2023 8:15 PM TRAPEZE ARTIST PATIENT STATUS Timed 10/04/2023 7:54 PM TRAPEZE ARTIST ABG W/COOX Timed 10/04/2023 7:54 PM TRAPEZE ARTIST LACTATE, B/P Timed 10/04/2023 7:53 PM TRAPEZE ARTIST URINALYSIS, DIPSTICK Routine 10/04/2023 6:39 PM TRAPEZE ARTIST GLUCOSE POCT, B Routine 10/04/2023 6:32 PM TRAPEZE ARTIST TROPONIN T, 2H/6H, 5TH GEN, P Timed 10/04/2023 5:57 PM TRAPEZE ARTIST DX CHEST PORTABLE 1 VIEW RAD - Routine (most inpatients and all outpatients) 10/04/2023 5:42 PM TRAPEZE ARTIST GLUCOSE POCT, B Routine 10/04/2023 5:01 PM TRAPEZE ARTIST AIRWAY CARE Routine 10/04/2023 4:31 PM TRAPEZE ARTIST AIRWAY CARE Routine 10/04/2023 4:31 PM TRAPEZE ARTIST AIRWAY CARE Routine 10/04/2023 4:31 PM TRAPEZE ARTIST MC ANE CENTRAL LINE GENERIC PERFORMABLE Routine 10/04/2023 4:25 PM TRAPEZE ARTIST Peritonitis Acute Generalized (HCC) LDA ANE CENTRAL LINE TRIPLE LUMEN Routine 10/04/2023 4:25 PM TRAPEZE ARTIST Peritonitis Acute Generalized (HCC) NV INS NON-JEFRY CVC >5YR Routine 10/04/2023 4:25 PM TRAPEZE ARTIST Peritonitis Acute Generalized (HCC) ECG Semiurgent (Fast, most ED patients, some inpatients) 10/04/2023 4:17 PM TRAPEZE ARTIST TROPONIN T, BASELINE, 5TH GEN, P STAT 10/04/2023 3:49 PM TRAPEZE ARTIST PATIENT STATUS STAT 10/04/2023 3:49 PM TRAPEZE ARTIST HEPATIC FUNCTION PANEL, S STAT 10/04/2023 3:49 PM TRAPEZE ARTIST ABG W/COOX STAT 10/04/2023 3:49 PM TRAPEZE ARTIST PROTHROMBIN TIME (PT), P STAT 10/04/2023 3:49 PM TRAPEZE ARTIST CBC WITHOUT DIFFERENTIAL, B STAT 10/04/2023 3:49 PM TRAPEZE ARTIST PHOSPHORUS (INORGANIC), S STAT 10/04/2023 3:49 PM TRAPEZE ARTIST MAGNESIUM, S STAT 10/04/2023 3:49 PM TRAPEZE ARTIST LACTATE, B/P STAT 10/04/2023 3:49 PM TRAPEZE ARTIST CALCIUM, IONIZED, S/B STAT 10/04/2023 3:49 PM TRAPEZE ARTIST BASIC METABOLIC PANEL, S/P STAT 10/04/2023 3:49 PM TRAPEZE ARTIST DX CHEST PORTABLE 1 VIEW RAD - Emergent (Fastest; for the most critically ill patients) 10/04/2023 3:44 PM TRAPEZE ARTIST MECHANICAL VENTILATOR Routine 10/04/2023 3:41 PM TRAPEZE ARTIST MECHANICAL VENTILATOR Routine 10/04/2023 3:41 PM TRAPEZE ARTIST MECHANICAL VENTILATOR Routine 10/04/2023 3:41 PM TRAPEZE ARTIST MECHANICAL VENTILATOR Routine 10/04/2023 3:41 PM TRAPEZE ARTIST MECHANICAL VENTILATOR Routine 10/04/2023 3:41 PM TRAPEZE ARTIST MECHANICAL VENTILATOR Routine 10/04/2023 3:41 PM TRAPEZE ARTIST THROMBOELASTOGRAPH, KAOLIN, B STAT 10/04/2023 2:58 PM TRAPEZE ARTIST TRANSFUSE RED BLOOD CELLS Routine 10/04/2023 2:33 PM TRAPEZE ARTIST SODIUM, B STAT 10/04/2023 2:00 PM TRAPEZE ARTIST ABG W/COOX STAT 10/04/2023 2:00 PM TRAPEZE ARTIST POTASSIUM, B STAT 10/04/2023 2:00 PM TRAPEZE ARTIST GLUCOSE, WHOLE BLOOD STAT 10/04/2023 2:00 PM TRAPEZE ARTIST CALCIUM, IONIZED, S/B STAT 10/04/2023 2:00 PM TRAPEZE ARTIST ADULT OXYGEN THERAPY Routine 10/04/2023 12:05 PM TRAPEZE ARTIST CRITICAL CARE Routine 10/04/2023 10:[address] ABDOMEN PELVIS WITH IV CONTRAST RAD - Semiurgent (Fast; most ED patients; some inpatients) 10/04/2023 9:56 AM TRAPEZE ARTIST BACTERIA / JOEL CULTURE, BLOOD STAT 10/04/2023 8:50 AM TRAPEZE ARTIST LACTATE FOR SEPSIS WITH REFLEX, POCT STAT 10/04/2023 8:41 AM TRAPEZE ARTIST HEPATIC FUNCTION PANEL, S STAT 10/04/2023 8:41 AM TRAPEZE ARTIST BACTERIA / JOEL CULTURE, BLOOD STAT 10/04/2023 8:41 AM TRAPEZE ARTIST PROTHROMBIN TIME (PT), P STAT 10/04/2023 8:41 AM TRAPEZE ARTIST CBC WITH DIFFERENTIAL, B STAT 10/04/2023 8:41 AM TRAPEZE ARTIST MAGNESIUM, S STAT 10/04/2023 8:41 AM TRAPEZE ARTIST LIPASE, S/P STAT 10/04/2023 8:41 AM TRAPEZE ARTIST BASIC METABOLIC PANEL, S/P STAT 10/04/2023 8:41 AM TRAPEZE ARTIST ECG STAT 10/04/2023 8:16 AM TRAPEZE ARTIST PREPARE RED BLOOD CELLS Routine 10/02/2023 5:51 AM TRAPEZE ARTIST PREPARE RED BLOOD CELLS STAT 10/02/2023 5:51 AM TRAPEZE ARTIST documented in this encounter Results * Patient Status (10/05/2023 12:01 PM TRAPEZE ARTIST) Pathologist [facility] FIO2 0.30 0.21=AIR 10/05/2023 12: 06 PM TRAPEZE ARTIST STMA Device Vent 10/05/2023 12: 06 PM TRAPEZE ARTIST STMA Blood 10/05/2023 12:0 1 PM TRAPEZE ARTIST 10/05/2023 12:06 PM TRAPEZE ARTIST Zulma Garcia M.D. LAB BLOOD NON ADD-ON [facility] [address] [place] [address], [facility] [address] [place] [address] * Lactate, Whole Blood (10/05/2023 12:01 PM TRAPEZE ARTIST) Pathologist [facility] Lactate, B 1.7 0.5 - 2.2 mmol/L 10/05/2023 12:15 PM TRAPEZE ARTIST STMA Blood (Blood, Arterial) 10/05/2023 12:01 PM TRAPEZE ARTIST 10/05/2023 12:06 PM TRAPEZE ARTIST Zulma Garcia M.D. LAB BLOOD NON ADD-ON [facility] [address] [place] [address], [facility] STMA [facility] [address] [place] [address] * (ABNORMAL) Blood Gas with Coox, Arterial (10/05/2023 12:01 PM TRAPEZE ARTIST) pO2 128(H) 83 - 108 mm Hg 10/05/2023 12:15 PM TRAPEZE ARTIST STMA pCO2 32(L) 35 - 48 mm Hg 10/05/2023 12:15 PM TRAPEZE ARTIST STMA pH 7.36 7.35 - 7.45 pH 10/05/2023 12:15 PM TRAPEZE ARTIST STMA Base Excess -8(L) -2 - 3 mmol/L 10/05/2023 12:15 PM TRAPEZE ARTIST STMA HCO3 18(L) 22 - 26 mmol/L 10/05/2023 12:15 PM TRAPEZE ARTIST STMA Hemoglobin, Venous 10.1(L) 13.2 - 16.6 g/dL 10/05/2023 12:15 PM TRAPEZE ARTIST STMA O2Hb 97.1 94.0 - 98.0 % 10/05/2023 12:15 PM TRAPEZE ARTIST STMA COHb 3.0(H) <3.0 % 10/05/2023 12:15 PM TRAPEZE ARTIST STMA MetHb <1.0 <1.5 % 10/05/2023 12:15 PM TRAPEZE ARTIST STMA CtO2 14.0(L) 18.0 - 21.0 vol % 10/05/2023 12:15 PM TRAPEZE ARTIST STMA Arterial Sample Site Art Line 10/05/2023 12:15 PM TRAPEZE ARTIST STMA Comment:Shai's test not don e. Blood (Blood, Arterial) 10/05/2023 12:01 PM TRAPEZE ARTIST 10/05/2023 12:06 PM TRAPEZE ARTIST Zulma Garcia M.D. LAB BLOOD NON ADD-ON [facility] [address] [place] [address], [facility] STMA [facility] [address] [place] [address] * (ABNORMAL) Glucose, POCT (10/05/2023 11:45 AM TRAPEZE ARTIST) Glucose, POCT, B 157(H) 70 - 140 mg/dL 10/05/2023 11:47 AM TRAPEZE ARTIST PCLX Site ARTLINE 10/05/2023 11:47 AM TRAPEZE ARTIST PCLX Last Intake NPO 10/05/2023 11:47 AM TRAPEZE ARTIST PCLX Blood 10/05/2023 11:4 5 AM TRAPEZE ARTIST 10/05/2023 11:48 AM TRAPEZE ARTIST Unknown Provider LAB POCT ORDERABLES- MANUAL Performing Organization Address City/[facility]/ZIP Co de Phone Number POC [facility] [address] [place] [address], [facility] PCLX [facility] [address] [place] [address] * Transfuse Red Blood Cells : (10/05/2023 11:28 AM TRAPEZE ARTIST) Daniel Zimmerman.Dagoberto., M.S. BLOOD TRANSFU APRIL ORDERABLES * Transfuse Red Blood Cells : , 2 Units (10/05/2023 11:28 AM TRAPEZE ARTIST) Daniel Pace D.O., M.S. BLOOD TRANSFU APRIL ORDERABLES * Glucose, POCT (10/05/2023 7:21 AM TRAPEZE ARTIST) Glucose, POCT, B 135 70 - 140 mg/dL 10/05/2023 7:24 AM TRAPEZE ARTIST PCLX Site ARTLINE 10/05/2023 7:24 AM TRAPEZE ARTIST PCLX Last Intake NPO 10/05/2023 7:24 AM TRAPEZE ARTIST PCLX Blood 10/05/2023 7:21 AM TRAPEZE ARTIST 10/05/2023 7:24 AM TRAPEZE ARTIST Unknown Provider LAB POCT ORDERABLES- MANUAL POC [facility] [address] [place] [address], [facility] PCLX [facility] [address] [place] [address] * Heparin Anti-Xa Assay (10/05/2023 7:21 AM TRAPEZE ARTIST) Heparin Anti-Xa, P 0.24 IU/mL 2023 8:48 AM TRAPEZE ARTIST DTL Comment: UFH therapeutic range: ?? 0.30-0.70 [...] (UFH). Blood (Blood, Venous) 10/05/2023 7:21 AM TRAPEZE ARTIST 10/05/2023 7:44 AM TRAPEZE ARTIST Kimberley Sierra APRN C.N.P., D.N.P. LAB BLOOD NON ADD-ON Performing Organization Address [facility]/ZIP Co de Phone Number [facility] [address] [place] [address], [facility] DTL [facility] [address] [place] [address] * Glucose, POCT (10/05/2023 6:15 AM TRAPEZE ARTIST) Glucose, POCT, B 120 70 - 140 mg/dL 10/05/2023 6:17 AM TRAPEZE ARTIST PCLX Blood 10/05/2023 6:15 AM TRAPEZE ARTIST 10/05/2023 6:17 AM TRAPEZE ARTIST Unknown Provider LAB POCT ORDERABLES- MANUAL Performing Organization Address City/[facility]/ZIP Co de Phone Number POC [facility] [address] [place] [address], [place] PCLX [facility] POC [address] [place] [address] * DX Chest Portable 1 View (10/05/2023 6:07 AM TRAPEZE ARTIST) Anatomical Region Laterality Modality Chest, Thoracic RST LOS, Tho racic ARZ LOS, Thoracic FLA LOS N/A Digital Radiography Impressions 10/05/2023 8:40 AM TRAPEZE ARTIST Stable interstitial changes in both lungs since 10/04/2023. This could be due to fibrosis/edema. ET and enteric tubes. Right central line extends superiorly into the neck as previously. Right IJ port catheter tip near the SVC/RA junction. Degenerative changes thoracic spine. Aortic calcification. Narrative 10/05/2023 8:40 AM TRAPEZE ARTIST EXAM: ??DX CHEST PORTABLE 1 VIEW Procedure Note Luis Antonio Jennings M.D. - 10/05/2023 EXAM: DX CHEST PORTABLE 1 VIEW IMPRESSION: Stable interstitial changes in both lungs since 10/04/2023. This could bedue to fibrosis/edema. ET and enteric tubes. Right central line extendssuperiorly into the neck as previously. Right IJ port catheter tip nearthe SVC/RA junction. Degenerative changes thoracic spine. Aortic calcification. Kimberley Sierra APRN, C.N.P., D.N.P. IMG DIAGNOSTIC IMAGING PROCEDURES * Glucose, POCT (10/05/2023 5:02 AM TRAPEZE ARTIST) Glucose, POCT, B 116 70 - 140 mg/dL 10/05/2023 5:04 AM TRAPEZE ARTIST PCLX Site ARTLINE 10/05/2023 5:04 AM TRAPEZE ARTIST PCLX Blood 10/05/2023 5:02 AM TRAPEZE ARTIST 10/05/2023 5:04 AM TRAPEZE ARTIST Unknown Provider LAB POCT ORDERABLES- MANUAL POC [facility] [address] [place] [address], [place] PCLX [facility] POC [address] [place] [address] * (ABNORMAL) Calcium, Ionized (10/05/2023 4:28 AM TRAPEZE ARTIST) Calcium, Ionized, B 4.56(L) 4.65 - 5.30 mg/dL 10/05/2023 4:51 AM TRAPEZE ARTIST STMA Blood 10/05/2023 4:28 AM TRAPEZE ARTIST 10/05/2023 4:34 AM TRAPEZE ARTIST Lola Teague APRN.N.P., D.N.P. LAB BLOOD NON ADD-ON [facility] [address] [place] [address] * Patient Status (10/05/2023 4:28 AM TRAPEZE ARTIST) Pathologist [facility] FIO2 0.30 0.21=AIR 10/05/2023 4:3 4 AM TRAPEZE ARTIST STMA Device Vent 10/05/2023 4:3 4 AM TRAPEZE ARTIST STMA Blood 10/05/2023 4:28 AM TRAPEZE ARTIST 10/05/2023 4:34 AM TRAPEZE ARTIST Kimberley Sierra APRN, C.N.P., D.N.P. LAB BLOOD NON ADD-ON Performing Organization Address City/[facility]/ZIP Co de Phone Number [facility] [address] [place] [address], [facility] [address] [place] [address] * (ABNORMAL) Blood Gas with Coox, Arterial (10/05/2023 4:28 AM TRAPEZE ARTIST) pO2 139(H) 83 - 108 mm Hg 10/05/2023 4:51 AM TRAPEZE ARTIST STMA pCO2 34(L) 35 - 48 mm Hg 10/05/2023 4:51 AM TRAPEZE ARTIST STMA pH 7.34(L) 7.35 - 7.45 pH 10/05/2023 4:51 AM TRAPEZE ARTIST STMA Base Excess -8(L) -2 - 3 mmol/L 10/05/2023 4:51 AM TRAPEZE ARTIST STMA HCO3 18(L) 22 - 26 mmol/L 10/05/2023 4:51 AM TRAPEZE ARTIST STMA Hemoglobin, Venous 8.8(L) 13.2 - 16.6 g/dL 10/05/2023 4:51 AM TRAPEZE ARTIST STMA O2Hb 97.1 94.0 - 98.0 % 10/05/2023 4:51 AM TRAPEZE ARTIST STMA COHb 2.6 <3.0 % 10/05/2023 4:51 AM TRAPEZE ARTIST STMA MetHb <1.0 <1.5 % 10/05/2023 4:51 AM TRAPEZE ARTIST STMA CtO2 12.4(L) 18.0 - 21.0 vol % 10/05/2023 4:51 AM TRAPEZE ARTIST STMA Arterial Sample Site Art Line 10/05/2023 4:51 AM TRAPEZE ARTIST STMA Comment:Shai's test not don e. Blood (Blood, Arterial) 10/05/2023 4:28 AM TRAPEZE ARTIST 10/05/2023 4:34 AM TRAPEZE ARTIST Kimberley Sierra APRN, C.N.P., D.N.P. LAB BLOOD NON ADD-ON [facility] [address] [place] [address], [facility] [address] [place] [address] * (ABNORMAL) CBC without Differential (10/05/2023 4:27 AM TRAPEZE ARTIST) Pathologist [facility] Hemoglobin 8.7(L) 13.2 - 16.6 g/dL 10/05/2023 5:31 AM TRAPEZE ARTIST DTL Hematocrit 25.8(L) 38.3 - 48.6 % 10/05/2023 5:31 AM TRAPEZE ARTIST DTL Erythrocytes 2.80(L) 4.35 - 5.65 x10(12)/L 10/05/2023 5:31 AM TRAPEZE ARTIST DTL MCV 92.1 78.2 - 97.9 fL 10/05/2023 5:31 AM TRAPE[facility] ARTIST DTL RBC Distrib Width 16.7(H) 11.8 - 14.5 % 10/05/2023 5:31 AM [facility] ARTIST DTL Platelet Count 165 135 - 317 x10(9)/L 10/05/2023 5:31 AM [facility] ARTIST DTL Leukocytes 6.0 3.4 - 9.6 x10(9)/L 10/05/2023 5:31 AM [facility] ARTIST DTL Blood (Blood, Venous) 10/05/2023 4:27 AM [facility] ARTIST 10/05/2023 5:22 AM [facility] ARTIST Daniel Pace D.O. M.S. LAB BLOOD ADD -ON [facility] [address] [facility] [address] [place] [address] * (ABNORMAL) Lactate (10/05/2023 4:27 AM [facility] ARTIST) Pathologist [facility] Lactate, P 3.5(H) 0.5 - 2.2 mmol/L 10/05/2023 4:46 AM [facility]APE[facility] ARTIST [facility] Blood (Blood, Venous) 10/05/2023 4:27 AM [facility] ARTIST 10/05/2023 4:34 AM [facility] ARTIST Kimberley Sierra APRN, C.N.P., D.N.P. LAB BLOOD NON ADD-ON Performing Organization Address City/[facility]/ZIP Co de Phone Number [facility] [address] [facility] 200 [place] [address] * Cystatin C with Estimated GFR (10/05/2023 4:27 AM TRAPEZE ARTIST) Pathologist [facility] eGFR by Cystatin C 74 >60 mL/min/BSA 10/05/2023 5:54 AM TRAPEZE ARTIST DTL Comment: Estimated GFR calculated using the [...] 0.67 - 1.21 mg/L 10/05/2023 5:54 AM TRAPEZE ARTIST DTL Blood (Blood, Venous) 10/05/2023 4:27 AM TRAPEZE ARTIST 10/05/2023 5:35 AM TRAPEZE ARTIST Lola Teague APRN.N.P., D.N.P. LAB BLOOD ADD-ON Performing Organization Address City/[facility]/ZIP Co de Phone Number [facility] [address] 200 [place] [address] * Phosphorus Inorganic (10/05/2023 4:27 AM TRAPEZE ARTIST) Phosphorus (Inorganic), S 3.8 2.5 - 4.5 mg/dL 10/05/2023 5:54 AM TRAPEZE ARTIST DTL Blood (Blood, Venous) 10/05/2023 4:27 AM TRAPEZE ARTIST 10/05/2023 5:35 AM TRAPEZE ARTIST Kimberley Sierra APRN, Lola.N.P., D.N.P. LAB BLOOD ADD-ON Performing Organization Address City/[facility]/ZIP Co de Phone Number [facility] 200 [place] [address], [facility] 200 [place] [address] * Magnesium (10/05/2023 4:27 AM TRAPEZE ARTIST) Magnesium, S 1.8 1.7 - 2.3 mg/dL 10/05/2023 5:54 AM TRAPEZE ARTIST DTL Blood (Blood, Venous) 10/05/2023 4:27 AM TRAPEZE ARTIST 10/05/2023 5:35 AM TRAPEZE ARTIST Lola Teague APRN.N.P., D.N.P. LAB BLOOD ADD-ON [facility] [address] [place] [address], [facility] DTL [facility] 200 [place] [address] * (ABNORMAL) Basic Metabolic Panel (10/05/2023 4:27 AM TRAPEZE ARTIST) Pathologist [facility] Potassium, S 4.1 3.6 - 5.2 mmol/L 10/05/2023 5:54 AM TRAPEZE ARTIST DTL Sodium, S 136 135 - 145 mmol/L 10/05/2023 5:54 AM TRAPEZE ARTIST DTL Chloride, S 107 98 - 107 mmol/L 10/05/2023 5:54 AM TRAPEZE ARTIST DTL Bicarbonate, S 16(L) 22 - 29 mmol/L 10/05/2023 5:54 AM TRAPEZE ARTIST DTL Anion Gap 13 7 - 15 10/05/2023 5:54 AM TRAPEZE ARTIST DTL BUN (Blood Urea Nitrogen), S 27(H) 8 - 24 mg/dL 10/05/2023 5:54 AM TRAPEZE ARTIST DTL Creatinine 0.81 0.74 - 1.35 mg/dL 10/05/2023 5:54 AM TRAPEZE ARTIST DTL Estimated GFR (eGFR) >90 >=60 mL/min/BSA 10/05/2023 5:54 AM TRAPEZE ARTIST DTL Comment: Estimated GFR calculated using the 2020 CKD_EPI creatinine equation. Calcium, Total, S 7.2(L) 8.8 - 10.2 mg/dL 10/05/2023 5:54 AM TRAPEZE ARTIST DTL Glucose, S 112 70 - 140 mg/dL 10/05/2023 5:54 AM TRAPEZE ARTIST DTL Blood (Blood, Venous) 10/05/2023 4:27 AM TRAPEZE ARTIST 10/05/2023 5:35 AM TRAPEZE ARTIST Eliecer Teague APRNN.P., D.N.P. LAB BLOOD ADD-ON [facility] [address] [place] [address], [facility] DTL [facility] 200 [place] [address] * Transfuse Red Blood Cells : (10/05/2023 4:21 AM TRAPEZE ARTIST) Daniel Pace D.O., M.S. BLOOD TRANSFU APRIL ORDERABLES * Glucose, POCT (10/05/2023 4:12 AM TRAPEZE ARTIST) Glucose, POCT, B 121 70 - 140 mg/dL 10/05/2023 4:15 AM TRAPEZE ARTIST PCLX Site ARTLINE 10/05/2023 4:15 AM TRAPEZE ARTIST PCLX Blood 10/05/2023 4:12 AM TRAPEZE ARTIST 10/05/2023 4:15 AM TRAPEZE ARTIST Unknown Provider LAB POCT ORDERABLES- MANUAL Performing Organization Address City/[facility]/ZIP Co de Phone Number POC [facility] 200 [place] [address], [place] [facility]X [facility] POC 200 [place] [address] * Glucose, POCT (10/05/2023 3:15 AM TRAPEZE ARTIST) Glucose, POCT, B 129 70 - 140 mg/dL 10/05/2023 3:16 AM TRAPEZE ARTIST PCLX Blood 10/05/2023 3:15 AM TRAPEZE ARTIST 10/05/2023 3:16 AM TRAPEZE ARTIST Unknown Provider LAB POCT ORDERABLES- MANUAL POC [facility] 200 [place] [address], [place] [facility] POC 200 [place] [address] * Glucose, POCT (10/05/2023 2:10 AM TRAPEZE ARTIST) Glucose, POCT, B 132 70 - 140 mg/dL 10/05/2023 2:12 AM TRAPEZE ARTIST PCLX Site ARTLINE 10/05/2023 2:12 AM TRAPEZE ARTIST PCLX Blood 10/05/2023 2:10 AM TRAPEZE ARTIST 10/05/2023 2:13 AM TRAPEZE ARTIST Unknown Provider LAB POCT ORDERABLES- MANUAL Performing Organization Address City/[facility]/ZIP Co de Phone Number POC [facility] [address] [place] [address], [facility] PCLX [facility] POC 200 [place] [address] * Patient Status (10/05/2023 12:52 AM TRAPEZE ARTIST) Temperature 37.2 37.0 deg C 10/05/2023 12:52 AM TRAPEZE ARTIST STMA FIO2 0.50 0.21=AIR 10/05/2023 12:52 AM TRAPEZE ARTIST STMA Blood 10/05/2023 12:5 2 AM TRAPEZE ARTIST 10/05/2023 12:52 AM TRAPEZE ARTIST Kayla Spencer M.D. LAB BLOOD NON ADD-ON Performing Organization Address City/[facility] Co de Phone Number [facility] [address] [place], [place] [id number] [place] [address] 200 [place] [address] * Lactate, B - Intra-op (10/05/2023 12:52 AM TRAPEZE ARTIST) Lactate, B 2.0 0.5 - 2.2 mmol/L 10/05/2023 12:59 AM TRAPEZE ARTIST STMA Blood (Blood, Venous) 10/05/2023 12:52 AM TRAPEZE ARTIST 10/05/2023 12:52 AM TRAPEZE ARTIST Carolee Ferguson M.D. LAB BLOOD NON ADD-ON Performing Organization Address City/[facility]/ZIP Co de Phone Number [facility] [address] [place] [address], [facility] 200 [place] [address] * Glucose, Whole Blood (10/05/2023 12:52 AM TRAPEZE ARTIST) Glucose 117 70 - 140 mg/dL 10/05/2023 12:59 AM TRAPEZE ARTIST STMA Blood (Blood, Arterial Line) 10/05/2023 12:52 AM TRAPEZE ARTIST 10/05/2023 12:52 AM TRAPEZE ARTIST Carolee Ferguson M.D. LAB BLOOD ADD-ON [facility] [address] [place], [place] [id number] [place] [address] [address] [place] [address] * (ABNORMAL) Potassium, Blood (10/05/2023 12:52 AM TRAPEZE ARTIST) Potassium, B 3.5(L) 3.6 - 5.2 mmol/L 10/05/2023 12:59 AM TRAPEZE ARTIST STMA Blood (Blood, Arterial Line) 10/05/2023 12:52 AM TRAPEZE ARTIST 10/05/2023 12:52 AM TRAPEZE ARTIST Carolee Ferguson M.D. LAB BLOOD NON ADD-ON Performing Organization Address City/[facility]/ZIP Co de Phone Number [facility] [address] [place], [place] [phone] [place] [address] [address] [place] [address] * Sodium, B (10/05/2023 12:52 AM TRAPEZE ARTIST) Sodium, B 136 135 - 145 mmol/L 10/05/2023 12:59 AM TRAPEZE ARTIST STMA Blood (Blood, Arterial Line) 10/05/2023 12:52 AM TRAPEZE ARTIST 10/05/2023 12:52 AM TRAPEZE ARTIST Caroele Ferguson M.D. LAB BLOOD NON ADD-ON [facility] [address] [place], [place] [phone] [place] [address] [address] [place] [address] * Calcium, Ionized (10/05/2023 12:52 AM TRAPEZE ARTIST) Calcium, Ionized, B 4.74 4.65 - 5.30 mg/dL 10/05/2023 12:59 AM TRAPEZE ARTIST STMA Blood (Blood, Arterial Line) 10/05/2023 12:52 AM TRAPEZE ARTIST 10/05/2023 12:52 AM TRAPEZE ARTIST Carolee Ferguson M.D. LAB BLOOD NON ADD-ON [facility] [address] [place] [address], [facility] STMA [facility] [address] [place] [address] * (ABNORMAL) Blood Gas with Coox, Arterial (10/05/2023 12:52 AM TRAPEZE ARTIST) pO2 167(H) 83 - 108 mm Hg 10/05/2023 12:59 AM TRAPEZE ARTIST STMA pCO2 30(L) 35 - 48 mm Hg 10/05/2023 12:59 AM TRAPEZE ARTIST STMA pH 7.39 7.35 - 7.45 pH 10/05/2023 12:59 AM TRAPEZE ARTIST STMA Base Excess -7(L) -2 - 3 mmol/L 10/05/2023 12:59 AM TRAPEZE ARTIST STMA HCO3 19(L) 22 - 26 mmol/L 10/05/2023 12:59 AM TRAPEZE ARTIST STMA Hemoglobin, Venous 8.2(L) 13.2 - 16.6 g/dL 10/05/2023 12:59 AM TRAPEZE ARTIST STMA O2Hb 97.6 94.0 - 98.0 % 10/05/2023 12:59 AM TRAPEZE ARTIST STMA COHb 2.6 <3.0 % 10/05/2023 12:59 AM TRAPEZE ARTIST STMA MetHb <1.0 <1.5 % 10/05/2023 12:59 AM TRAPEZE ARTIST STMA CtO2 11.6(L) 18.0 - 21.0 vol % 10/05/2023 12:59 AM TRAPEZE ARTIST STMA Blood (Blood, Arterial Line) 10/05/2023 12:52 AM TRAPEZE ARTIST 10/05/2023 12:52 AM TRAPEZE ARTIST Carolee Ferguson M.D. LAB BLOOD NON ADD-ON [facility] 200 [place] [address], [facility] [address] [place] [address] * Glucose, POCT (10/05/2023 12:02 AM TRAPEZE ARTIST) Glucose, POCT, B 85 70 - 140 mg/dL 10/05/2023 12:04 AM TRAPEZE ARTIST PCLX Site ARTLINE 10/05/2023 12:04 AM TRAPEZE ARTIST PCLX Blood 10/05/2023 12:0 2 AM TRAPEZE ARTIST 10/05/2023 12:04 AM TRAPEZE ARTIST Unknown Provider LAB POCT ORDERABLES- MANUAL POC [facility] 200 [place] [address], [facility] PCLX [facility] POC 200 [place] [address] * Glucose, POCT (10/04/2023 11:19 PM TRAPEZE ARTIST) Glucose, POCT, B 117 70 - 140 mg/dL 10/04/2023 11:20 PM TRAPEZE ARTIST PCLX Site ARTLINE 10/04/2023 11:20 PM TRAPEZE ARTIST PCLX Blood 10/04/2023 11:1 9 PM TRAPEZE ARTIST 10/04/2023 11:21 PM TRAPEZE ARTIST Unknown Provider LAB POCT ORDERABLES- MANUAL [facility] 200 [place] [address], [facility] PCLX [facility] POC 200 [place] [address] * APTT (Activated Partial Thromboplastin Time) (10/04/2023 10:08 PM TRAPEZE ARTIST) Activated Partial Thrombopl Time, P 27 25 - 37 sec 10/04/2023 10:23 PM TRAPEZE ARTIST STMA Blood (Blood, Venous) 10/04/2023 10:08 PM TRAPEZE ARTIST 10/04/2023 10:23 PM TRAPEZE ARTIST Kimberley Sierra APRN, C.N.P., YamilkaNJohannaP. LAB BLOOD ADD-ON [facility] 200 [place] [address], [facility] STMA [facility] 200 [place] [address] * Glucose, POCT (10/04/2023 10:07 PM TRAPEZE ARTIST) Glucose, POCT, B 113 70 - 140 mg/dL 10/04/2023 10:09 PM TRAPEZE ARTIST PCLX Site ARTLINE 10/04/2023 10:09 PM TRAPEZE ARTIST PCLX Blood 10/04/2023 10:0 7 PM TRAPEZE ARTIST 10/04/2023 10:10 PM TRAPEZE ARTIST Unknown Provider LAB POCT ORDERABLES- MANUAL Performing Organization Address City/[facility]/ZIP Co de Phone Number POC [facility] 200 [place] [address], [facility] PCLX [facility] 200 [place] [address] * (ABNORMAL) Basic Metabolic Panel (10/04/2023 10:03 PM TRAPEZE ARTIST) Potassium, P 3.8 3.6 - 5.2 mmol/L 10/04/2023 10:28 PM TRAPEZE ARTIST STMA Sodium, P 135 135 - 145 mmol/L 10/04/2023 10:28 PM TRAPEZE ARTIST STMA Chloride, P 105 98 - 107 mmol/L 10/04/2023 10:28 PM TRAPEZE ARTIST STMA Bicarbonate, P 17(L) 22 - 29 mmol/L 10/04/2023 10:28 PM TRAPEZE ARTIST STMA Anion Gap, P 13 7 - 15 10/04/2023 10:28 PM TRAPEZE ARTIST STMA BUN (Blood Urea Nitrogen), P 27(H) 8 - 24 mg/dL 10/04/2023 10:28 PM TRAPEZE ARTIST STMA Creatinine 0.70(L) 0.74 - 1.35 mg/dL 10/04/2023 10:28 PM TRAPEZE ARTIST STMA Estimated GFR (eGFR) >90 >=60 mL/min/BSA 10/04/2023 10:28 PM TRAPEZE ARTIST STMA Comment: Estimated GFR calculated using the 2020 CKD_EPI creatinine equation. Calcium, Total, P 8.0(L) 8.8 - 10.2 mg/dL 10/04/2023 10:28 PM TRAPEZE ARTIST STMA Glucose, P 125 70 - 140 mg/dL 10/04/2023 10:28 PM TRAPEZE ARTIST STMA Blood (Blood, Venous) 10/04/2023 10:03 PM TRAPEZE ARTIST 10/04/2023 10:13 PM TRAPEZE ARTIST Daniel Pace D.O. MJohannaSJohanna LAB BLOOD ADD -ON [facility] [address] [place] [address], [facility] 200 [place] [address] * (ABNORMAL) CBC without Differential (10/04/2023 10:03 PM TRAPEZE ARTIST) Hemoglobin 8.6(L) 13.2 - 16.6 g/dL 10/04/2023 10:16 PM TRAPEZE ARTIST STMA Hematocrit 26.8(L) 38.3 - 48.6 % 10/04/2023 10:16 PM TRAPEZE ARTIST STMA Erythrocytes 2.90(L) 4.35 - 5.65 x10(12)/L 10/04/2023 10:16 PM TRAPEZE ARTIST STMA MCV 92.4 78.2 - 97.9 fL 10/04/2023 10:16 PM TRAPEZE ARTIST STMA RBC Distrib Width 16.9(H) 11.8 - 14.5 % 10/04/2023 10:16 PM TRAPEZE ARTIST STMA Platelet Count 166 135 - 317 x10(9)/L 10/04/2023 10:16 PM TRAPEZE ARTIST STMA Leukocytes 3.2(L) 3.4 - 9.6 x10(9)/L 10/04/2023 11:15 PM TRAPEZE ARTIST [facility] Blood (Blood, Venous) 10/04/2023 10:03 PM TRAPEZE ARTIST 10/04/2023 10:13 PM TRAPEZE ARTIST Daniel Pace D.O. M.SJohanna LAB BLOOD ADD -ON [facility] 200 [place] [address], [facility] 200 [place] [address] [facility] 200 [place] [address] * (ABNORMAL) Thromboelastograph, Kaolin, Blood (10/04/2023 9:59 PM TRAPEZE ARTIST) R, Kaolin, TEG 6.1 4.0 - 9.0 min 10/04/2023 10:56 PM TRAPEZE ARTIST STMA K, Kaolin, TEG 1.1 1.0 - 1.8 min 10/04/2023 10:56 PM TRAPEZE ARTIST STMA Angle, Kaolin, TEG 74.9 64.0 - 78.1 degrees 10/04/2023 10:56 PM TRAPEZE ARTIST STMA MA, Kaolin, TEG 74.4(H) 57.1 - 72.6 mm 10/04/2023 10:56 PM TRAPEZE ARTIST STMA Ly30, Kaolin, TEG 0.2 0.0 - 4.8 % 10/04/2023 10:56 PM TRAPEZE ARTIST STMA Blood (Blood, Venous) 10/04/2023 9:59 PM TRAPEZE ARTIST 10/04/2023 10:04 PM TRAPEZE ARTIST Daniel Pace D.O. MJohannaS. LAB BLOOD NON ADD-ON [facility] 200 [place] [address], [facility] 200 [place] [address] * Glucose, POCT (10/04/2023 9:03 PM TRAPEZE ARTIST) Glucose, POCT, B 126 70 - 140 mg/dL 10/04/2023 10:09 PM TRAPEZE ARTIST PCLX Site ARTLINE 10/04/2023 10:09 PM TRAPEZE ARTIST PCLX Blood 10/04/2023 9:03 PM TRAPEZE ARTIST 10/04/2023 10:09 PM TRAPEZE ARTIST Unknown Provider LAB POCT ORDERABLES- MANUAL POC [facility] [address] [place] [address], [place] PCLX [facility] POC [address] [place] [address] * US Upper Extremity Veins Right (10/04/2023 8:40 PM TRAPEZE ARTIST) Anatomical Region Laterality Modality Upper Extremity, Ultrasound RST LOS, Ultrasound ARZ LOS, Ultrasound FLA LOS Right Ultrasound Impressions 10/05/2023 6:33 AM TRAPEZE ARTIST 1. Right axillary venous catheter with nonocclusive thrombin cast. 2. 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 3. The right internal jugular, innominate, and subclavian veins were obscured by overlying bandages. Findings [place] [id number] at 10:00PM on 10/04/2023. Narrative 10/05/2023 6:33 AM TRAPEZE ARTIST EXAM: US UPPER EXTREMITY VEINS RIGHT Exam [...] and management can be found on the [facility] site. Link [email or web address] Procedure Note Martinez Flowers M.D. - 10/05/2023 [...] thrombosis and management can be found on theAskMayoExpert site. [email or web address] IMPRESSION: 1. Right axillary venous catheter with nonocclusive thrombin cast. 2. 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 3. The right internal jugular, innominate, and subclavian veins wereobscured by overlying bandages. Findings were discussed [place] Kimberley Sierra [place] [id number] at 10:00PMon 10/04/2023. Kimberley Sierra APRN, C.N.P., D.N.P. IMG US PROCEDURES * (ABNORMAL) Glucose, POCT (10/04/2023 8:15 PM TRAPEZE ARTIST) [facility] Glucose, POCT, B 141(H) 70 - 140 mg/dL 10/04/2023 8:17 PM TRAPEZE ARTIST PCLX Site ARTLINE 10/04/2023 8:17 PM TRAPEZE ARTIST PCLX Blood 10/04/2023 8:15 PM TRAPEZE ARTIST 10/04/2023 8:18 PM TRAPEZE ARTIST Unknown Provider LAB POCT ORDERABLES- MANUAL POC [facility] [address] [place] [address], [facility] PCLX [facility] POC [address] [place] [address] * Patient Status (10/04/2023 7:54 PM TRAPEZE ARTIST) [facility] FIO2 0.30 0.21=AIR 10/04/2023 7:59 PM TRAPEZE ARTIST STMA Device Vent 10/04/2023 7:59 PM TRAPEZE ARTIST STMA Spont. breaths/min 19 10/04/2023 7:59 PM TRAPEZE ARTIST STMA Blood 10/04/2023 7:54 PM TRAPEZE ARTIST 10/04/2023 7:59 PM TRAPEZE ARTIST Kimberley Crow Sierra APRN C.N.P., D.N.P. LAB BLOOD NON ADD-ON [facility] [address] [place] [address], [facility] STMA [facility] [address] [place] [address] * (ABNORMAL) Blood Gas with Coox, Arterial (10/04/2023 7:54 PM TRAPEZE ARTIST) pO2 91 83 - 108 mm Hg 10/04/2023 8:05 PM TRAPEZE ARTIST STMA pCO2 36 35 - 48 mm Hg 10/04/2023 8:05 PM TRAPEZE ARTIST STMA pH 7.34(L) 7.35 - 7.45 pH 10/04/2023 8:05 PM TRAPEZE ARTIST STMA Base Excess -6(L) -2 - 3 mmol/L 10/04/2023 8:05 PM TRAPEZE ARTIST STMA HCO3 19(L) 22 - 26 mmol/L 10/04/2023 8:05 PM TRAPEZE ARTIST STMA Hemoglobin, Venous 9.5(L) 13.2 - 16.6 g/dL 10/04/2023 8:05 PM TRAPEZE ARTIST STMA O2Hb 95.9 94.0 - 98.0 % 10/04/2023 8:05 PM TRAPEZE ARTIST STMA COHb 2.1 <3.0 % 10/04/2023 8:05 PM TRAPEZE ARTIST STMA MetHb <1.0 <1.5 % 10/04/2023 8:05 PM TRAPEZE ARTIST STMA CtO2 13.0(L) 18.0 - 21.0 vol % 10/04/2023 8:05 PM TRAPEZE ARTIST STMA Arterial Sample Site Art Line 10/04/2023 8:05 PM TRAPEZE ARTIST STMA Comment:Shai's test not don e. Blood (Blood, Arterial) 10/04/2023 7:54 PM TRAPEZE ARTIST 10/04/2023 7:59 PM TRAPEZE ARTIST Eliecer Teague APRNN.P., D.N.P. LAB BLOOD NON ADD-ON Performing Organization Address City/[facility] [place] [address] * (ABNORMAL) Lactate (10/04/2023 7:53 PM TRAPEZE ARTIST) Pathologist [facility] Lactate, P 4.0(H) 0.5 - 2.2 mmol/L 10/04/2023 8:12 PM TRAPEZE ARTIST STMA Blood (Blood, Venous) 10/04/2023 7:53 PM TRAPEZE ARTIST 10/04/2023 7:59 PM TRAPEZE ARTIST Eliecer Teague APRNN.P., D.N.P. LAB BLOOD NON ADD-ON Performing Organization Address [facility] de Phone Number [facility] 200 [place] [address] * (ABNORMAL) Urinalysis, Dipstick (10/04/2023 6:39 PM TRAPEZE ARTIST) Glucose, U 100(A) Negative mg/dL 10/04/2023 7:46 PM TRAPEZE ARTIST [facility] Comment: ----ADDITIONAL INFORMATION---- This test has been modified from the labor relations specialist's instructions. Its performance characteristics were determined by [facility] in a manner consistent with CLIA requirements. This test has not been cleared or approved by the U.S. Food and Drug Administration. Ketone, U Negative Negative mg/dL 10/04/2023 7:46 PM TRAPEZE ARTIST [facility] Comment: ----ADDITIONAL INFORMATION---- This test has been modified from the labor relations specialist's instructions. Its performance characteristics were determined by [facility] in a manner consistent with CLIA requirements. This test has not been cleared or approved by the U.S. Food and Drug Administration. pH, U 5.0 5.0 - 8.0 pH 10/04/2023 7:46 PM TRAPEZE ARTIST STMA Comment: ----ADDITIONAL INFORMATION---- This test has been modified from the labor relations specialist's instructions. Its performance characteristics were determined by [facility] in a manner consistent with CLIA requirements. This test has not been cleared or approved by the U.S. Food and Drug Administration. Protein, U 100(A) Negative mg/dL 10/04/2023 7:46 PM TRAPEZE ARTIST STMA Comment: ----ADDITIONAL INFORMATION---- This test has been modified from the labor relations specialist's instructions. Its performance characteristics were determined by [facility] in a manner consistent with CLIA requirements. This test has not been cleared or approved by the U.S. Food and Drug Administration. Blood, U Negative Negative 10/04/2023 7:46 PM TRAPEZE ARTIST STMA Comment: ----ADDITIONAL INFORMATION---- This test has been modified from the labor relations specialist's instructions. Its performance characteristics were determined by [facility] in a manner consistent with CLIA requirements. This test has not been cleared or approved by the U.S. Food and Drug Administration. Nitrite, U Negative Negative 10/04/2023 7:46 PM TRAPEZE ARTIST STMA Comment: ----ADDITIONAL INFORMATION---- This test has been modified from the labor relations specialist's instructions. Its performance characteristics were determined by [facility] in a manner consistent with CLIA requirements. This test has not been cleared or approved by the U.S. Food and Drug Administration. Leukocyte, U Negative Negative 10/04/2023 7:46 PM TRAPEZE ARTIST STMA Comment: ----ADDITIONAL INFORMATION---- This test has been modified from the labor relations specialist's instructions. Its performance characteristics were determined by [facility] in a manner consistent with CLIA requirements. This test has not been cleared or approved by the U.S. Food and Drug Administration. Urine (Urine, Midstream) 10/04/2023 6:39 PM TRAPEZE ARTIST 10/04/2023 7:43 PM TRAPEZE ARTIST Juliocesar Hernandez APRN, C.N.P. LAB URINE KYLEE HARDWICK [facility] [address] [place] [address], [facility] [address] [place] [address] * (ABNORMAL) Glucose, POCT (10/04/2023 6:32 PM TRAPEZE ARTIST) Glucose, POCT, B 226(H) 70 - 140 mg/dL 10/04/2023 6:34 PM TRAPEZE ARTIST PCLX Site Capillary 10/04/2023 6:34 PM TRAPEZE ARTIST PCLX Last Intake NPO 10/04/2023 6:34 PM TRAPEZE ARTIST PCLX Blood 10/04/2023 6:32 PM TRAPEZE ARTIST 10/04/2023 6:35 PM TRAPEZE ARTIST Unknown Provider LAB POCT ORDERABLES- MANUAL POC [facility] [address] [place] [address], [facility] PCLX [facility] [address] [place] [address] * (ABNORMAL) Troponin T, 2h/6h, 5th Gen (10/04/2023 5:57 PM TRAPEZE ARTIST) Pathologist [facility] Troponin T, 2 hr, 5th gen 76(H) <=15 ng/L 10/04/2023 6:26 PM TRAPEZE ARTIST STMA 2H Delta 2 ng/L 10/04/2023 6:26 PM TRAPEZE ARTIST STMA 2H Delta Interp Not Changing 10/04/2023 6:26 PM TRAPEZE ARTIST ST[facility] Troponin T, 6 hr, 5th gen CANCELED ng/L 10/04/2023 6:26 PM TRAPEZE ARTIST STMA Comment:Result canceled by t he ancillary. 6H Delta CANCELED ng/L 10/04/2023 6:18 PM TRAPEZE ARTIST STMA Comment:Result canceled by t he ancillary. 6H Delta % CANCELED % 10/04/2023 6:18 PM TRAPEZE ARTIST ST[facility] Comment:Result canceled by t he ancillary. Blood (Blood, Arterial) 10/04/2023 5:57 PM TRAPEZE ARTIST 10/04/2023 6:01 PM TRAPEZE ARTIST Narrative [facility] - 10/04/2023 6:26 PM TRAPEZE ARTIST Specimen Information: Specimen ID: [id number] Specimen Type: Blood Specimen Collection Start Date: 10/04/2023 ??5:57 PM Specimen Received Date: 10/04/2023 ??6:01 PM Specimen ID: [id number] Specimen Type: Blood Specimen Collection Start Date: 10/04/2023 ??6:25 PM Specimen Received Date: 10/04/2023 ??6:25 PM Juliocesar Barbara David MCKEE C.N.P. LAB BLOOD TROP ONIN [facility] [address] [place] [address], [facility] [address] [place] [address] * DX Chest Portable 1 View (10/04/2023 5:42 PM TRAPEZE ARTIST) Anatomical Region Laterality Modality Chest, Thoracic RST LOS, Tho racic ARZ LOS, Thoracic FLA LOS N/A Digital Radiography Impressions 10/04/2023 7:45 PM [employer]APE[facility] ARTIST Since earlier today at 3:59 PM, new right IJ CVC with tip projecting towards the right subclavian vein, recommend repositioning. Remainder not significantly changed. ETT tip terminates at the midthoracic trachea. Accessed right port catheter tip at the SVC/RA junction. Enteric tube tip projects below the diaphragm. Upper abdominal surgical drains partially included on imaging. No pneumothorax, pleural effusion, or focal consolidation. Decreased atelectasis in the right lower lung. Background pulmonary fibrosis. Stable cardiac silhouette. Surgical clips project over the inferior neck. Postsurgical changes left humerus. Findings were discussed with Dr. Pace pager # [phone] at 7:38 on 10/04/2022. Narrative 10/04/2023 7:45 PM [employer]APE[facility] ARTIST EXAM: ??DX CHEST PORTABLE 1 VIEW Procedure Note Chuy Oneil M.D. - 10/04/2023 EXAM: DX CHEST PORTABLE 1 VIEW IMPRESSION: Since earlier today at 3:59 PM, new right IJ CVC with tip projectingtowards the right subclavian vein, recommend repositioning. Remainder notsignificantly changed. ETT tip terminates at the midthoracic trachea.Accessed right port catheter tip at the SVC/RA junction. Enteric tube tip projects below thediaphragm. Upper abdominal surgical drains partially included onimaging. No pneumothorax, pleural effusion, or focal consolidation. Decreasedatelectasis in the right lower lung. Background pulmonary fibrosis. Stablecardiac silhouette. Surgical clips project over the inferior neck.Postsurgical changes left humerus. Findings were discussed with Dr. Pace pager # [phone] at 7:38 on10/04/2022. Mary New APRN, C.N.P. IMG THOM GNOSTIC IMAGING PROCEDURES * (ABNORMAL) Glucose, POCT (10/04/2023 5:01 PM TRAPEZE ARTIST) Glucose, POCT, B 213(H) 70 - 140 mg/dL 10/04/2023 5:04 PM TRAPEZE ARTIST PCLX Site Capillary 10/04/2023 5:04 PM TRAPEZE ARTIST PCLX Last Intake 1-2 hours 10/04/2023 5:04 PM TRAPEZE ARTIST PCLX Blood 10/04/2023 5:01 PM TRAPEZE ARTIST 10/04/2023 5:04 PM TRAPEZE ARTIST Unknown Provider LAB POCT ORDERABLES- MANUAL POC [facility] [address] [place] [address], [facility] PCLX [facility] POC [address] [place] [address] * NV INS NON-JEFRY CVC >5YR, LDA ANE CENTRAL LINE TRIPLE LUMEN, MC ANE CENTRAL LINE GENERIC PERFORMABLE (10/04/2023 4:25 PM TRAPEZE ARTIST) Narrative Jeaneth Gonzalez M.D. - 10/04/2023 4:25 PM TRAPEZE ARTIST Mary New APRN, C.N.P. ? 10/04/2023 ??4:30 [...] * ECG 12 Lead (10/04/2023 4:17 PM TRAPEZE ARTIST) Ventricular Rate ECG/Min 109 BPM MUSE NV Interval 162 ms MUSE QRSD Interval 94 ms MUSE QT Interval 344 ms MUSE QTC Interval 463 ms MUSE P [place] 52 degrees MUSE R [place] 76 degrees MUSE T Wave [place] 63 degrees MUSE 10/04/2023 4:17 PM TRAPEZE ARTIST 10/04/2023 4:20 PM TRAPEZE ARTIST Impressions MUSE - 10/04/2023 4:20 PM TRAPEZE ARTIST Sinus tachycardia Nonspecific ST and T wave [...] present Reviewed by Marito Fairbanks III, CRAT Lola Ortega APRN.N.P. ECG ORDERABLES Performing Organization Address City/[facility]/ZIP Co de Phone Number MUSE NA * Patient Status (10/04/2023 3:49 PM TRAPEZE ARTIST) Pathologist [facility] FIO2 0.50 0.21=AIR 10/04/2023 3:54 PM TRAPEZE ARTIST STMA Device Vent 10/04/2023 3:54 PM TRAPEZE ARTIST STMA Spont. breaths/min 18 10/04/2023 3:54 PM TRAPEZE ARTIST STMA Blood 10/04/2023 3:49 PM TRAPEZE ARTIST 10/04/2023 3:54 PM TRAPEZE ARTIST Juliocesar Hernandez APRN C.N.P. LAB BLOOD NON ADD-ON Performing Organization Address [facility] Co de Phone Number [facility] [address] [place] [address], [facility] STMA [facility] [address] [place] [address] * (ABNORMAL) Troponin T, Baseline, 5th gen (10/04/2023 3:49 PM TRAPEZE ARTIST) [facility] Troponin T, Baseline, 5th gen 74(H) <=15 ng/L 10/04/2023 4:17 PM TRAPEZE ARTIST STMA Blood (Blood, Arterial) 10/04/2023 3:49 PM TRAPEZE ARTIST 10/04/2023 3:54 PM TRAPEZE ARTIST Juliocesar Hernandez APRN C.N.P. LAB BLOOD TROP ONIN Performing Organization Address City/[facility]/ZIP Co de Phone Number [facility] [address] [place] [address], [facility] [address] [place] [address] * (ABNORMAL) Prothrombin Time (PT) (10/04/2023 3:49 PM TRAPEZE ARTIST) [facility] Prothrombin Time, P 14.6(H) 9.4 - 12.5 sec 10/04/2023 4:27 PM TRAPEZE ARTIST [facility] INR 1.3 0.9 - 1.1 10/04/2023 4:27 PM TRAPEZE ARTIST [facility] Comment: ----ADDITIONAL INFORMATION---- Standard intensity warfarin therapeutic range: 2.0 to 3.0 ?? High intensity warfarin therapeutic range: 2.5 to 3.5 Blood (Blood, Venous) 10/04/2023 3:49 PM TRAPEZE ARTIST 10/04/2023 3:54 PM TRAPEZE ARTIST Juliocesar Hernandez APRN, C.N.P. LAB BLOOD ADD- ON [facility] [address] [place], [place] [address] [address] [place] [address] * Phosphorus Inorganic (10/04/2023 3:49 PM TRAPEZE ARTIST) [facility] Phosphorus (Inorganic), S 4.4 2.5 - 4.5 mg/dL 10/04/2023 5:04 PM TRAPEZE ARTIST DTL Blood (Blood, Venous) 10/04/2023 3:49 PM TRAPEZE ARTIST 10/04/2023 4:29 PM TRAPEZE ARTIST Juliocesar Hernandez APRN, C.N.P. LAB BLOOD ADD- ON [facility] [address] [place], [place] [address] [address] [place] [address] * (ABNORMAL) Magnesium (10/04/2023 3:49 PM TRAPEZE ARTIST) [facility] Magnesium, S 1.5(L) 1.7 - 2.3 mg/dL 10/04/2023 5:04 PM TRAPEZE ARTIST DTL Blood (Blood, Venous) 10/04/2023 3:49 PM TRAPEZE ARTIST 10/04/2023 4:29 PM TRAPEZE ARTIST Juliocesar Hernandez APRN, C.N.P. LAB BLOOD ADD- ON Performing Organization Address City/[facility]/ZIP Co de Phone Number [facility] [address] DTL [facility] [address] [place] [address] * (ABNORMAL) Lactate (10/04/2023 3:49 PM TRAPEZE ARTIST) Pathologist [facility] Lactate, P 3.8(H) 0.5 - 2.2 mmol/L 10/04/2023 4:24 PM TRAPEZE ARTIST STMA Blood (Blood, Venous) 10/04/2023 3:49 PM TRAPEZE ARTIST 10/04/2023 3:54 PM TRAPEZE ARTIST Juliocesar Hernandez APRN, C.N.P. LAB BLOOD NON ADD-ON Performing Organization Address City/[facility] Co de Phone Number [facility] [address] STMA [facility] [address] [place] [address] * (ABNORMAL) Hepatic Function Panel (10/04/2023 3:49 PM TRAPEZE ARTIST) Bilirubin, Total, S 0.9 0.0 - 1.2 mg/dL 10/04/2023 5:04 PM TRAPEZE ARTIST DTL Bilirubin, Direct, S 0.7(H) 0.0 - 0.3 mg/dL 10/04/2023 5:04 PM TRAPEZE ARTIST DTL Aspartate Aminotransferase (AST), S 27 8 - 48 U/L 10/04/2023 5:04 PM TRAPEZE ARTIST DTL Alanine Aminotransferase (ALT), S 16 7 - 55 U/L 10/04/2023 5:04 PM TRAPEZE ARTIST DTL Alkaline Phosphatase, S 114 40 - 129 U/L 10/04/2023 5:31 PM TRAPEZE ARTIST DTL Albumin, S 2.6(L) 3.5 - 5.0 g/dL 10/04/2023 5:04 PM TRAPEZE ARTIST DTL Protein, Total, S 4.2(L) 6.3 - 7.9 g/dL 10/04/2023 5:04 PM TRAPEZE ARTIST DTL Blood (Blood, Venous) 10/04/2023 3:49 PM TRAPEZE ARTIST 10/04/2023 4:29 PM TRAPEZE ARTIST Juliocesar Hernandez APRN C.N.P. LAB BLOOD ADD- ON [facility] [address] [place] [address], [facility] [address] [place] [address] * (ABNORMAL) CBC without Differential (10/04/2023 3:49 PM TRAPEZE ARTIST) Hemoglobin 9.9(L) 13.2 - 16.6 g/dL 10/04/2023 4:00 PM TRAPEZE ARTIST STMA Hematocrit 30.8(L) 38.3 - 48.6 % 10/04/2023 4:00 PM TRAPEZE ARTIST STMA Erythrocytes 3.35(L) 4.35 - 5.65 x10(12)/L 10/04/2023 4:00 PM TRAPEZE ARTIST STMA MCV 91.9 78.2 - 97.9 fL 10/04/2023 4:00 PM TRAPEZE ARTIST STMA RBC Distrib Width 16.1(H) 11.8 - 14.5 % 10/04/2023 4:00 PM TRAPEZE ARTIST STMA Platelet Count 193 135 - 317 x10(9)/L 10/04/2023 4:00 PM TRAPEZE ARTIST STMA Leukocytes 2.8(L) 3.4 - 9.6 x10(9)/L 10/04/2023 4:34 PM TRAPEZE ARTIST [facility] Blood (Blood, Venous) 10/04/2023 3:49 PM TRAPEZE ARTIST 10/04/2023 3:54 PM TRAPEZE ARTIST Juliocesar Hernandez APRN C.N.P. LAB BLOOD ADD- ON [facility] [address] [place] [address], [facility] [address] [place] [address] [facility] 200 [place] [address] * (ABNORMAL) Calcium, Ionized (10/04/2023 3:49 PM TRAPEZE ARTIST) Pathologist [facility] Calcium, Ionized, B 5.56(H) 4.65 - 5.30 mg/dL 10/04/2023 3:59 PM TRAPEZE ARTIST STMA Blood (Blood, Venous) 10/04/2023 3:49 PM TRAPEZE ARTIST 10/04/2023 3:54 PM TRAPEZE ARTIST Eliecer Ortega APRNN.PJohanna LAB BLOOD NON ADD-ON [facility] [address] [place], [place] [address] [address] [place] [address] * (ABNORMAL) Basic Metabolic Panel (10/04/2023 3:49 PM TRAPEZE ARTIST) Pathologist [facility] Potassium, P 3.8 3.6 - 5.2 mmol/L 10/04/2023 4:29 PM TRAPEZE ARTIST STMA Sodium, P 137 135 - 145 mmol/L 10/04/2023 4:29 PM TRAPEZE ARTIST STMA Chloride, P 105 98 - 107 mmol/L 10/04/2023 4:29 PM TRAPEZE ARTIST STMA Bicarbonate, P 19(L) 22 - 29 mmol/L 10/04/2023 4:29 PM TRAPEZE ARTIST STMA Anion Gap, P 13 7 - 15 10/04/2023 4:29 PM TRAPEZE ARTIST STMA BUN (Blood Urea Nitrogen), P 29(H) 8 - 24 mg/dL 10/04/2023 4:29 PM TRAPEZE ARTIST STMA Creatinine 0.66(L) 0.74 - 1.35 mg/dL 10/04/2023 4:29 PM TRAPEZE ARTIST STMA Estimated GFR (eGFR) >90 >=60 mL/min/BSA 10/04/2023 4:29 PM TRAPEZE ARTIST STMA Comment: Estimated GFR calculated using the 2020 CKD_EPI creatinine equation. Calcium, Total, P 9.2 8.8 - 10.2 mg/dL 10/04/2023 4:29 PM TRAPEZE ARTIST STMA Glucose, P 240(H) 70 - 140 mg/dL 10/04/2023 4:29 PM TRAPEZE ARTIST STMA Blood (Blood, Venous) 10/04/2023 3:49 PM TRAPEZE ARTIST 10/04/2023 3:54 PM TRAPEZE ARTIST Eliecer Ortega APRNNGovind LAB BLOOD ADD- ON [facility] [address] [place] [address], [facility] [address] [place] [address] * (ABNORMAL) Blood Gas with Coox, Arterial (10/04/2023 3:49 PM TRAPEZE ARTIST) pO2 123(H) 83 - 108 mm Hg 10/04/2023 3:59 PM TRAPEZE ARTIST STMA pCO2 39 35 - 48 mm Hg 10/04/2023 3:59 PM TRAPEZE ARTIST STMA pH 7.29(L) 7.35 - 7.45 pH 10/04/2023 3:59 PM TRAPEZE ARTIST STMA Base Excess -7(L) -2 - 3 mmol/L 10/04/2023 3:59 PM TRAPEZE ARTIST STMA HCO3 18(L) 22 - 26 mmol/L 10/04/2023 3:59 PM TRAPEZE ARTIST STMA Hemoglobin, Venous 10.5(L) 13.2 - 16.6 g/dL 10/04/2023 3:59 PM TRAPEZE ARTIST STMA O2Hb 94.9 94.0 - 98.0 % 10/04/2023 3:59 PM TRAPEZE ARTIST STMA COHb 1.1 <3.0 % 10/04/2023 3:59 PM TRAPEZE ARTIST STMA MetHb 2.1(H) <1.5 % 10/04/2023 3:59 PM TRAPEZE ARTIST STMA CtO2 14.3(L) 18.0 - 21.0 vol % 10/04/2023 3:59 PM TRAPEZE ARTIST STMA Arterial Sample Site Art Line 10/04/2023 3:59 PM TRAPEZE ARTIST STMA Comment:Shai's test not don e. Blood (Blood, Arterial) 10/04/2023 3:49 PM TRAPEZE ARTIST 10/04/2023 3:54 PM TRAPEZE ARTIST Juliocesar Hernandez Denis MCKEE LAB BLOOD NON ADD-ON [facility] [address] [place] [address], [facility] [address] [place] [address] * DX Chest Portable 1 View (10/04/2023 3:44 PM TRAPEZE ARTIST) Anatomical Region Laterality Modality Chest, Thoracic RST LOS, Tho racic ARZ LOS, Thoracic FLA LOS N/A Digital Radiography Impressions 10/04/2023 4:30 PM TRAPEZE ARTIST Since 04/23/2023, interval placement of a right chest Port-A-Cath with tip near the superior cavoatrial junction, ETT with tip 4 cm above the feliciano, and a subdiaphragmatic NG tube with sidehole in the stomach but tip out of view. Decreased lung volumes with increasing perihilar and bibasilar atelectasis. No other significant change. No pneumothorax or pleural effusion. Peripheral and lower lung predominant reticular opacities consistent with fibrotic lung disease, as better seen on same-day CT abdomen and pelvis. Postsurgical changes left humeral head. Surgical clips in the neck. Partially visualized percutaneous gastrojejunostomy tube. Narrative 10/04/2023 4:30 PM TRAPEZE ARTIST EXAM: ??DX CHEST PORTABLE 1 VIEW Procedure Note Martinez Garza M.D. - 10/04/2023 EXAM: DX CHEST PORTABLE 1 VIEW IMPRESSION: Since 04/23/2023, interval placement of a right chest Port-A-Cath with tipnear the superior cavoatrial junction, ETT with tip 4 cm above the feliciano,and a subdiaphragmatic NG tube with sidehole in the stomach but tip out ofview. Decreased lung volumes with increasing perihilar and bibasilar atelectasis. No othersignificant change. No pneumothorax or pleural effusion. Peripheral andlower lung predominant reticular opacities consistent with fibrotic lungdisease, as better seen on same-day CT abdomen and pelvis. Postsurgical changes left humeral head.Surgical clips in the neck. Partially visualized percutaneousgastrojejunostomy tube. Juliocesar Hernandez APRN, C.N.P. IMG DIAGNOSTIC IMAGING PROCEDURES * (ABNORMAL) Thromboelastograph, Kaolin, Blood (10/04/2023 2:58 PM TRAPEZE ARTIST) R, Kaolin, TEG 6.2 4.0 - 9.0 min 10/04/2023 4:12 PM TRAPEZE ARTIST STMA K, Kaolin, TEG 1.2 1.0 - 1.8 min 10/04/2023 4:12 PM TRAPEZE ARTIST STMA Angle, Kaolin, TEG 74.0 64.0 - 78.1 degrees 10/04/2023 4:12 PM TRAPEZE ARTIST STMA MA, Kaolin, TEG 74.5(H) 57.1 - 72.6 mm 10/04/2023 4:12 PM TRAPEZE ARTIST STMA Ly30, Kaolin, TEG 0.0 0.0 - 4.8 % 10/04/2023 4:12 PM TRAPEZE ARTIST STMA Blood (Blood, Arterial Line) 10/04/2023 2:58 PM TRAPEZE ARTIST 10/04/2023 2:58 PM TRAPEZE ARTIST Ronald De Paz M.D. LAB BLOOD NON ADD-O N [facility] [address] [place] [address], [facility] [address] [place] [address] * Transfuse Red Blood Cells : (10/04/2023 2:34 PM TRAPEZE ARTIST) Ronald De Paz M.D. BLOOD TRANSFUSION O RDERABLES * (ABNORMAL) Glucose, Whole Blood (10/04/2023 2:00 PM TRAPEZE ARTIST) Glucose 237(H) 70 - 140 mg/dL 10/04/2023 2:05 PM TRAPEZE ARTIST STMA Blood (Blood, Arterial Line) 10/04/2023 2:00 PM TRAPEZE ARTIST 10/04/2023 2:00 PM TRAPEZE ARTIST Ronald De Paz M.D. LAB BLOOD ADD-ON [facility] [address] [place] [address], [facility] [address] [place] [address] * (ABNORMAL) Potassium, Blood (10/04/2023 2:00 PM TRAPEZE ARTIST) Potassium, B 3.3(L) 3.6 - 5.2 mmol/L 10/04/2023 2:05 PM TRAPEZE ARTIST [facility] Blood (Blood, Arterial Line) 10/04/2023 2:00 PM TRAPEZE ARTIST 10/04/2023 2:00 PM TRAPEZE ARTIST Ronald De Paz M.D. LAB BLOOD NON ADD-O N Performing Organization Address City/[facility]/ZIP Co de Phone Number [facility] [address] [place] [address], [facility] [address] [place] [address] * Sodium, B (10/04/2023 2:00 PM TRAPEZE ARTIST) Sodium, B 139 135 - 145 mmol/L 10/04/2023 2:05 PM TRAPEZE ARTIST [facility] Blood (Blood, Arterial Line) 10/04/2023 2:00 PM TRAPEZE ARTIST 10/04/2023 2:00 PM TRAPEZE ARTIST Ronald De Paz M.D. LAB BLOOD NON ADD-O N [facility] [address] [place], [place] [address] [place] [address] 200 [place] [address] * (ABNORMAL) Calcium, Ionized (10/04/2023 2:00 PM TRAPEZE ARTIST) Calcium, Ionized, B 4.58(L) 4.65 - 5.30 mg/dL 10/04/2023 2:05 PM TRAPEZE ARTIST STMA Blood (Blood, Arterial Line) 10/04/2023 2:00 PM TRAPEZE ARTIST 10/04/2023 2:00 PM TRAPEZE ARTIST Ronald De Paz M.D. LAB BLOOD NON ADD-O N [facility] [address] [place] [address], [facility] [address] [place] [address] * (ABNORMAL) Blood Gas with Coox, Arterial (10/04/2023 2:00 PM TRAPEZE ARTIST) pO2 383(H) 83 - 108 mm Hg 10/04/2023 2:05 PM TRAPEZE ARTIST STMA pCO2 46 35 - 48 mm Hg 10/04/2023 2:05 PM TRAPEZE ARTIST STMA pH 7.26(L) 7.35 - 7.45 pH 10/04/2023 2:05 PM TRAPEZE ARTIST STMA Base Excess -7(L) -2 - 3 mmol/L 10/04/2023 2:05 PM TRAPEZE ARTIST STMA HCO3 20(L) 22 - 26 mmol/L 10/04/2023 2:05 PM TRAPEZE ARTIST STMA Hemoglobin, Venous 8.1(L) 13.2 - 16.6 g/dL 10/04/2023 2:05 PM TRAPEZE ARTIST STMA O2Hb 99.2(H) 94.0 - 98.0 % 10/04/2023 2:05 PM TRAPEZE ARTIST STMA COHb 1.7 <3.0 % 10/04/2023 2:05 PM TRAPEZE ARTIST STMA MetHb <1.0 <1.5 % 10/04/2023 2:05 PM TRAPEZE ARTIST STMA CtO2 12.2(L) 18.0 - 21.0 vol % 10/04/2023 2:05 PM TRAPEZE ARTIST STMA Blood (Blood, Arterial Line) 10/04/2023 2:00 PM TRAPEZE ARTIST 10/04/2023 2:00 PM TRAPEZE ARTIST Ronald De Paz M.D. LAB BLOOD NON ADD-O N [facility] [address] [place] [address], [facility] [address] [place] [address] * Critical Care (10/04/2023 10:29 AM TRAPEZE ARTIST) Narrative Jayna Albert M.D. - 10/04/2023 10:29 AM TRAPEZE ARTIST Jayna Albert M.D. ? 10/04/2023 11:19 AM [...] Pelvis with IV Contrast (10/04/2023 9:56 AM TRAPEZE ARTIST) Anatomical Region Laterality Modality Abdomen, Pelvis, Abdominal R ST LOS, Abdominal ARZ LOS, Abdominal FLA LOS N/A Computed Tomograp hy, Computed Tomography 10/04/2023 9:47 AM TRAPEZE ARTIST Impressions 10/04/2023 10:29 AM TRAPEZE ARTIST 1. Massive portal venous gas and gas [...] Critical findings discussed with Jayna Albert M.D. ([id number]) at 10:20 AM on 10/04/2023. Narrative 10/04/2023 10:29 AM TRAPEZE ARTIST EXAM: ??CT ABDOMEN PELVIS WITH IV CONTRAST [...] Critical findings discussed with Jayna Albert M.D. ([id number]) at 10:20 Ember 10/04/2023. Jayna Albert M.D. IMG CT PROCEDURES * Magnesium (10/04/2023 8:41 AM TRAPEZE ARTIST) Magnesium, S 1.8 1.7 - 2.3 mg/dL 10/04/2023 9:44 AM TRAPEZE ARTIST DTL Blood (Blood, Venous) 10/04/2023 8:41 AM TRAPEZE ARTIST 10/04/2023 9:27 AM TRAPEZE ARTIST Jayna Albert M.D. LAB BLOOD ADD-ON Performing Organization Address City/[facility]/ZIP Co de Phone Number [facility] [address] [place] [address], [facility] DTL [facility] [address] [place] [address] * Lactate for Sepsis with Reflex, POCT (10/04/2023 8:41 AM TRAPEZE ARTIST) Pathologist [facility] Lactate, POCT 1.80 0.50 - 2.20 mmol/L 10/04/2023 9:05 AM TRAPEZE ARTIST PCLX Blood (Blood, Venous) 10/04/2023 8:41 AM TRAPEZE ARTIST 10/04/2023 8:41 AM TRAPEZE ARTIST Jayna Albert M.D. LAB POCT ORDERABL ES - DEVICE Performing Organization Address City/[facility] Co de Phone Number POC [facility] [address] [place] [address], [facility] PCLX [facility] POC [address] [place] [address] * (ABNORMAL) Prothrombin Time (PT) (10/04/2023 8:41 AM TRAPEZE ARTIST) Prothrombin Time, P 12.6(H) 9.4 - 12.5 sec 10/04/2023 9:08 AM TRAPEZE ARTIST STMA INR 1.1 0.9 - 1.1 10/04/2023 9:08 AM TRAPEZE ARTIST STMA Comment: ----ADDITIONAL INFORMATION---- Standard intensity warfarin therapeutic range: 2.0 to 3.0 ?? High intensity warfarin therapeutic range: 2.5 to 3.5 Blood (Blood, Venous) 10/04/2023 8:41 AM TRAPEZE ARTIST 10/04/2023 8:56 AM TRAPEZE ARTIST Jayna Albert M.D. LAB BLOOD ADD-ON Performing Organization Address City/[facility] Co de Phone Number [facility] [address] STMA [facility] [address] [place] [address] * (ABNORMAL) Lipase (10/04/2023 8:41 AM TRAPEZE ARTIST) Lipase, S 11(L) 13 - 60 U/L 10/04/2023 9: 44 AM TRAPEZE ARTIST DTL Blood (Blood, Venous) 10/04/2023 8:41 AM TRAPEZE ARTIST 10/04/2023 9:27 AM TRAPEZE ARTIST Jayna Albert M.D. LAB BLOOD ADD-ON Performing Organization Address [facility] Co de Phone Number [facility] [address] [place] [address], [facility] [address] [place] [address] * (ABNORMAL) Hepatic Function Panel (10/04/2023 8:41 AM TRAPEZE ARTIST) Bilirubin, Total, S 0.4 0.0 - 1.2 mg/dL 10/04/2023 9:44 AM TRAPEZE ARTIST DTL Bilirubin, Direct, S 0.2 0.0 - 0.3 mg/dL 10/04/2023 9:44 AM TRAPEZE ARTIST DTL Aspartate Aminotransferase (AST), S 24 8 - 48 U/L 10/04/2023 9:44 AM TRAPEZE ARTIST DTL Alanine Aminotransferase (ALT), S 20 7 - 55 U/L 10/04/2023 9:44 AM TRAPEZE ARTIST DTL Alkaline Phosphatase, S 150(H) 40 - 129 U/L 10/04/2023 9:44 AM TRAPEZE ARTIST DTL Albumin, S 3.6 3.5 - 5.0 g/dL 10/04/2023 9:44 AM TRAPEZE ARTIST DTL Protein, Total, S 5.3(L) 6.3 - 7.9 g/dL 10/04/2023 9:44 AM TRAPEZE ARTIST DTL Blood (Blood, Venous) 10/04/2023 8:41 AM TRAPEZE ARTIST 10/04/2023 9:27 AM TRAPEZE ARTIST Jayna Albert M.D. LAB BLOOD ADD-ON [facility] [address] [place] [address], [facility] [address] [place] [address] * (ABNORMAL) Basic Metabolic Panel (10/04/2023 8:41 AM TRAPEZE ARTIST) Potassium, P 4.1 3.6 - 5.2 mmol/L 10/04/2023 9:40 AM TRAPEZE ARTIST STMA Sodium, P 138 135 - 145 mmol/L 10/04/2023 9:40 AM TRAPEZE ARTIST STMA Chloride, P 99 98 - 107 mmol/L 10/04/2023 9:40 AM TRAPEZE ARTIST STMA Bicarbonate, P 22 22 - 29 mmol/L 10/04/2023 9:40 AM TRAPEZE ARTIST STMA Anion Gap, P 17(H) 7 - 15 10/04/2023 9:40 AM TRAPEZE ARTIST STMA BUN (Blood Urea Nitrogen), P 31(H) 8 - 24 mg/dL 10/04/2023 9:40 AM TRAPEZE ARTIST STMA Creatinine 0.73(L) 0.74 - 1.35 mg/dL 10/04/2023 9:40 AM TRAPEZE ARTIST STMA Estimated GFR (eGFR) >90 >=60 mL/min/BSA 10/04/2023 9:40 AM TRAPEZE ARTIST STMA Comment: Estimated GFR calculated using the 2020 CKD_EPI creatinine equation. Calcium, Total, P 8.8 8.8 - 10.2 mg/dL 10/04/2023 9:40 AM TRAPEZE ARTIST STMA Glucose, P 200(H) 70 - 140 mg/dL 10/04/2023 9:40 AM TRAPEZE ARTIST STMA Blood (Blood, Venous) 10/04/2023 8:41 AM TRAPEZE ARTIST 10/04/2023 8:56 AM TRAPEZE ARTIST Jayna Albert M.D. LAB BLOOD ADD-ON [facility] [address] [place] [address], [facility] STMA [facility] [address] [place] [address] * (ABNORMAL) CBC with Differential, Blood (10/04/2023 8:41 AM TRAPEZE ARTIST) Hemoglobin 8.9(L) 13.2 - 16.6 g/dL 10/04/2023 8:59 AM TRAPEZE ARTIST STMA Hematocrit 27.9(L) 38.3 - 48.6 % 10/04/2023 8:59 AM TRAPEZE ARTIST STMA Erythrocytes 3.02(L) 4.35 - 5.65 x10(12)/L 10/04/2023 8:59 AM TRAPEZE ARTIST STMA MCV 92.4 78.2 - 97.9 fL 10/04/2023 8:59 AM TRAPEZE ARTIST STMA RBC Distrib Width 16.5(H) 11.8 - 14.5 % 10/04/2023 8:59 AM TRAPEZE ARTIST STMA Platelet Count 152 135 - 317 x10(9)/L 10/04/2023 8:59 AM TRAPEZE ARTIST STMA Leukocytes 2.9(L) 3.4 - 9.6 x10(9)/L 10/04/2023 8:59 AM TRAPEZE ARTIST STMA Neutrophils 2.40 1.56 - 6.45 x10(9)/L 10/04/2023 8:59 AM TRAPEZE ARTIST DHPM Lymphocytes 0.19(L) 0.95 - 3.07 x10(9)/L 10/04/2023 8:59 AM TRAPEZE ARTIST STMA Monocytes 0.27 0.26 - 0.81 x10(9)/L 10/04/2023 8:59 AM TRAPEZE ARTIST STMA Eosinophils 0.05 0.03 - 0.48 x10(9)/L 10/04/2023 8:59 AM TRAPEZE ARTIST STMA Basophils <0.03 0.01 - 0.08 x10(9)/L 10/04/2023 8:59 AM TRAPEZE ARTIST STMA Blood (Blood, Venous) 10/04/2023 8:41 AM TRAPEZE ARTIST 10/04/2023 8:56 AM TRAPEZE ARTIST Jayna Albert M.D. LAB BLOOD ADD-ON [facility] [address] [place] [address], [facility] STMA [facility] [address] [place] [address] DHPM [facility] [address] [place] [address] * ECG 12 Lead (10/04/2023 8:16 AM TRAPEZE ARTIST) Ventricular Rate ECG/Min 111 BPM MUSE NV Interval 168 ms MUSE QRSD Interval 92 ms MUSE QT Interval 322 ms MUSE QTC Interval 438 ms MUSE P [place] 39 degrees MUSE R [place] 46 degrees MUSE T Wave [place] 64 degrees MUSE 10/04/2023 8:16 AM TRAPEZE ARTIST 10/04/2023 10:13 AM TRAPEZE ARTIST Impressions MUSE - 10/04/2023 8:27 AM TRAPEZE ARTIST Sinus tachycardia with sinus arrhythmia with Varying P-wave morphology Cannot rule out Multifocal atrial tachycardia Premature atrial complexes Nonspecific T wave abnormality When compared with ECG of 27-SEP-2023 09:26, Premature atrial complexes are now present Vent. rate has increased BY ??42 BPM Varying P-wave morphology is now evident Revised Report Narrative Procedure Note Hal Campos M.D. - 10/04/2023 IMPRESSION: Sinus tachycardia with sinus arrhythmia with Varying P-wave morphology Cannot rule out Multifocal atrial tachycardia Premature atrial complexes Nonspecific T wave abnormality When compared with ECG of 27-SEP-2023 09:26, Premature atrial complexes are now present Vent. rate has increased BY 42 BPM Varying P-wave morphology is now evident Revised Report Jayna Albert M.D. 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) Peritonitis Acute Generalized (HCC) Ischemia Mesenteric (HCC) Anemia Chronic Kidney Disease Stage 2 Glomerular Filtration Rate 60 To 89 Apnea Sleep Obstructive Hyperlipidemia Lymphoma Non Hodgkins (HCC) Resection Small Bowel Status Post Severe Sepsis With Septic Shock (HCC) Acidosis Metabolic Acidosis Lactic Diabetes Mellitus Type 2 With Diabetic Neuropathy (HCC) Hypomagnesemia Acute Respiratory Failure With Hypoxia (HCC) Hypothyroidism Postsurgical Thrombocytopenia (HCC) Hypokalemia Anemia Posthemorrhagic Acute (Blood Loss Anemia) 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) documented in this encounter Admitting Diagnoses Diagnosis Pneumatosis Cystoides Intestinalis documented in this encounter Administered Medications Active Administered Medications - up to 3 most recent administrations Medication Order MAR Action Action Date Dose Rate Site acyclovir 400 mg in NaCl 0.9% IVPB (ZOVIRAX) 400 mg, intravenous, at 108 mL/hr, Administer over 60 Minutes, Every 12 hours, First dose on Sat10/04/23 at 1900, Do NOT refrigerate., Drug Monitoring Program: Pharmacist to adjust medication dosing based on indication and drug clearance factors., Indications: Prophylaxis, medical New Bag 10/05/2023 6:29 AM [facility] ARTIST 400 mg 108 mL/hr New Bag 10/04/2023 8:17 PM [facility] ARTIST 400 mg 108 mL/hr chlorhexidine 0.12 % mouthwash 15 mL (PERIDEX) 15 mL, swish & spit, 2 times daily, First dose on Sat10/04/23 at 2100, Swab oral cavity while on ventilator. Avoid brushing or use of mouthwash for at least 2 hours after application. Discontinue after extubation. Given 10/05/2023 8:38 AM [facility] ARTIST 1 5 mL Given 10/04/2023 8:17 PM [facility] ARTIST 15 mL famotidine injection 20 mg (PEPCID) 20 mg, intravenous, 2 times daily, First dose on Sat10/04/23 at 2100, Drug Monitoring Program: Pharmacist to adjust medication dosing based on indication and drug clearance factors. Given 10/05/2023 8:38 AM [facility] ARTIST 20 mg Given 10/04/2023 8:42 PM [facility] ARTIST 20 mg fentaNYL 10 mcg/mL in NaCl 0.9% [...] RASS goal. Rate/Dose Verify 10/05/2023 12:00 PM [facility] ARTIST 50 mcg/hr 5 mL/hr Rate/Dose Verify 10/05/2023 11:00 AM [facility] ARTIST 50 mcg/hr 5 mL/h r Rate/Dose Change 10/05/2023 10:19 AM [facility] ARTIST 50 mcg/hr 5 mL/h r fentaNYL bolus from bag 25 mcg (SUBLIMAZE) 25 mcg, intravenous, Every 1 hour PRN, severe pain or score 7-10 of 10, sedation, Starting on Sat10/04/23 at 1601 Bolus from Bag 10/05/2023 6:12 AM [facility] ARTIST 25 mcg Bolus from Bag 10/05/2023 4:26 AM [facility] ARTIST 25 mcg Bolus from Bag 10/05/2023 2:36 AM [facility] ARTIST 25 mcg fluconazole in NaCl 0.9 % (iso osm) IVPB 400 mg (DIFLUCAN) 400 mg, intravenous, at 100 mL/hr, Every 24 hours, First dose on Sat10/04/23 at 1600, Drug Monitoring Program: Pharmacist to adjust medication dosing based on indication and drug clearance factors., Indications: Intra-abdominal infection, healthcare associated New Bag 10/04/2023 4:46 PM [facility] ARTIST 400 mg 100 mL/hr heparin (porcine) 1,000 unit/mL injection 2,300 Units 2,300 Units (rounded from 2,268 Units = 30 Units/kg ? 75.6 kg Dosing weight), intravenous, As needed, antiXa 0.1-0.19, Starting on Sat10/05/23 at 0143, Intensity type: Moderate, Anti-Xa < 0.1: Loading Dose (Units/kg): 60, Anti-Xa 0.1-0.19: Loading Dose (Units/kg): 30, Anti-Xa > 0.19: Loading Dose (Units/kg): 0 heparin (porcine) 1,000 unit/mL injection 4,500 Units 4,500 Units (rounded from 4,536 Units = 60 Units/kg ? 75.6 kg Dosing weight), intravenous, As needed, antiXa less than 0.1, Starting on 10/05/23 at 0143, Intensity type: Moderate, Anti-Xa < 0.1: Loading Dose (Units/kg): 60, Anti-Xa 0.1-0.19: Loading Dose (Units/kg): 30, Anti-Xa > 0.19: Loading Dose (Units/kg): 0 heparin (porcine) 100 Units/mL in NaCl 0.45% 250 mL infusion 0-30 Units/kg/hr ? 75.6 kg Dosing weight (0-22.68 mL/hr), intravenous, Continuous, Starting on 10/05/23 at 0200, 25,000 Units in 250 mL, Intensity type: Moderate, Starting Dose (units/kg/hr): 12, Anti-Xa < 0.1: Adjust Dose (Units/kg/hr) by: 4, Anti-Xa < 0.1: Loading Dose (Units/kg): 60, Anti-Xa < 0.1: Repeat anti-Xa: 6 hours, Anti-Xa 0.1-0.19: Adjust Dose (Units/kg/hr) by: 2, Anti-Xa 0.1-0.19: Loading Dose (Units/kg): 30, Anti-Xa 0.1-0.19: Repeat anti-Xa: 6 hours, Anti-Xa 0.2-0.5: Adjust Dose (Units/kg/hr) by: 0, Anti-Xa 0.2-0.5: Repeat anti-Xa: 6 hours. If two consecutive therapeutic result, re-check next AM., Anti-Xa > 0.19: Loading Dose (Units/kg): 0, Anti-Xa 0.51-0.6: Adjust Dose (Units/kg/hr) by: -1, Anti-Xa 0.51-0.6: Repeat anti-Xa: 6 hours, Anti-Xa 0.61-0.9: Hold Infusion: Stop infusion for 1 hour, Anti-Xa 0.61-0.9: Adjust Dose (Units/kg/hr) by: -2, Anti-Xa 0.61-0.9: Repeat anti-Xa: 6 hours after Heparin resumed, Anti-Xa >= 0.91: Hold Infusion: Stop infusion for 2 hours, Anti-Xa >= 0.91: Adjust Dose (Units/kg/hr) by: -4, Anti-Xa >= 0.91: Repeat anti-Xa: 6 hours after Heparin resumed Rate/Dose Verify 10/05/2023 12:00 PM [facility] ARTIST 12 Units/kg/hr 9.07 mL/hr Rate/Dose Verify 10/05/2023 11:00 AM [facility] ARTIST 12 Units/kg/hr 9. 07 mL/hr Rate/Dose Verify 10/05/2023 10:00 AM [facility] ARTIST 12 Units/kg/hr 9. 07 mL/hr hydrocortisone sodium succinate (PF) injection 100 mg (Solu-CORTEF) 100 mg, intravenous, Every 8 hours, First dose on Sat10/04/23 at 1900, IV push over 30 seconds per 100 mg (For doses 500 mg or less) Given 10/05/2023 11:39 AM [facility] ARTIST 100 mg Given 10/05/2023 3:21 AM [facility] ARTIST 100 mg Given 10/04/2023 7:37 PM [facility] ARTIST 100 mg insulin aspart U-100 injection 0-13 Units (NovoLOG FlexPen) 0-13 Units, subcutaneous, Every 4 hours scheduled, First dose on Sat10/05/23 at 0800, Insulin Scale: Moderate Correction Scale, 140 - 179: 2 units, 180 - 219: 4 units, 220 - 259: 6 units, 260 - 299: 8 units, 300 - 339: 10 units, 340 - 379: 12 units, 380 - 399: 13 units, Greater than 399: Call service writing Insulin orders Given 10/05/2023 11:57 AM [facility] ARTIST 2 Units Right Outer Thigh ketamine 2 mg/mL in NaCl 0.9 % 250 mL infusion (KETALAR) 0.1-0.5 mg/kg/hr ? 75.6 kg Dosing weight (3.78-18.9 mL/hr), intravenous, Continuous, Starting on Sat10/05/23 at 0400, Initiate at 0.1 mg/kg/min; titrate by 0.05 every 15 minutes to goal RASS of -1. Range 0.1-0.5 mg/kg/min 500 mg in 250 mL Rate/Dose Verify 10/05/2023 12:00 PM [facility] ARTIST 0.3 mg/kg/hr 11.3 mL/hr Rate/Dose Verify 10/05/2023 11:00 AM [facility] ARTIST 0.3 mg/kg/hr 11.3 mL/hr Rate/Dose Verify 10/05/2023 10:00 AM [facility] 0.3 mg/kg/hr 11.3 mL/hr Lactated Ringer's 250 mL/hr, intravenous, Continuous, Starting on Sat10/05/23 at 1230, For 20 hours New Bag 10/05/2023 12:21 PM [facility] ARTIST 250 mL/hr 250 mL/hr levothyroxine injection 168 mcg 168 mcg, intravenous, Daily, First dose on Sat10/06/23 at 0900, For 2 doses, IV push over 1 minute NaCl 0.9 % bolus 250 mL 250 mL, intravenous, at 500 mL/hr, Administer over 30 Minutes, Every 12 hours, First dose on Sat10/04/23 at 1830, Administer 30 minutes before acyclovir dose New Bag 10/05/2023 5:56 AM [facility] ART[facility] 250 mL 500 mL/hr New Bag 10/04/2023 8:07 PM [facility] ARTIST 250 mL 500 mL/hr NaCl 0.9 % bolus 250 mL 250 mL, intravenous, at 500 mL/hr, Administer over 30 Minutes, Every 12 hours, First dose on Sat10/04/23 at 2000, Administer after acyclovir dose New Bag 10/05/2023 7:42 AM [facility] ARTIST 250 mL 500 mL/hr New Bag 10/04/2023 8:39 PM [facility] ARTIST 250 mL 500 mL/hr NaCl 0.9% infusion 20-500 mL/hr, intravenous, Once as needed, Between Units of Blood Products, Starting on Sat10/05/23 at 0248, For 1 dose, Infuse at the same rate as the blood infusion until tubing cleared. Nurse may reduce rate to 20 mL/hour or as otherwise directed until next blood infusion arrives then discontinue when infusion complete. norepinephrine 16 mcg/mL in D5W 250 mL infusion 0-0.3 mcg/kg/min ? 71 kg Dosing weight (0-79.875 mL/hr, rounded to 0-79.88 mL/hr), intravenous, Continuous, Starting on Sat10/04/23 at 1545, Protect from light and avoid extravasation, Patient Type: Sepsis, Initiate at: 0.05 mcg/kg/min, Titrate at: 0.05 mcg/kg/min. every 5 min., Wean at: 0.01 mcg/kg/min. every 5 min., Goal: MAP 65-75 New Bag 10/05/2023 12:10 PM [facility] ARTIST 0.3 mcg/kg/min 79.9 mL/hr Rate/Dose Verify 10/05/2023 12:00 PM [facility] ARTIST 0.3 mcg/kg/min 79 .9 mL/hr Rate/Dose Verify 10/05/2023 11:00 AM [facility] ARTIST 0.3 mcg/kg/min 79 .9 mL/hr ondansetron (PF) injection 4 mg (ZOFRAN) 4 mg, intravenous, Every 6 hours PRN, nausea, vomiting, Starting on Sat10/04/23 at 1526, Use Ondansetron before Prochlorperazine or Promethazine phenylephrine 80 mcg/mL in NaCl 0.9% 250 mL infusion 0-1 mcg/kg/min ? 75.6 kg Dosing weight (0-56.7 mL/hr), intravenous, Continuous, Starting on Sat10/04/23 at 2130, 20 mg in 250 mL, Patient Type: Sepsis, initiate at: 0.5 mcg/kg/min., Titrate at: 0.1 mcg/kg/min. every 5 min., Goal: MAP 65-75 Rate/Dose Verify 10/05/2023 12:00 PM [facility] ARTIST 0.4 mcg/kg/min 22.7 mL/hr Rate/Dose Change 10/05/2023 11:49 AM [facility] ARTIST 0.4 mcg/kg/min 22 .7 mL/hr Rate/Dose Verify 10/05/2023 11:00 AM [facility] ARTIST 0.5 mcg/kg/min 28 .4 mL/hr piperacillin-tazobactam in dextrose (iso osm) IVPB 3.375 g (ZOSYN) 3.375 g, intravenous, at 100 mL/hr, Administer over 0.5 Hours, Every 6 hours, First dose on Sat10/04/23 at 1600, Drug Monitoring Program: Pharmacist to adjust medication dosing based on indication and drug clearance factors., Indications: Intra-abdominal infection, healthcare associated New Bag 10/05/2023 9:18 AM [facility] ARTIST 3.375 g 100 mL/hr New Bag 10/05/2023 3:47 AM [facility] ARTIST 3.375 g 100 mL/hr New Bag 10/04/2023 9:44 PM [facility] ARTIST 3.375 g 100 mL/hr vasopressin 20 unit/100 mL (0.2 unit/mL) in D5W 100 mL infusion (PITRESSIN) 0.04 Units/min (12 mL/hr), intravenous, Continuous, Starting on Sat10/04/23 at 1545, 20 units in 100 mL Rate/Dose Verify 10/05/2023 12:00 PM [facility] ARTIST 0.04 Units/min 12 mL/hr Rate/Dose Verify 10/05/2023 11:00 AM [facility] ARTIST 0.04 Units/min 12 mL/hr New Bag 10/05/2023 10:40 AM [facility] ARTIST 0.04 Units/min 12 mL/hr documented in this encounter Active and Recently Administered Medications Times are shown in [facility]. Scheduled Medication Order 10/03/2023 10/04/2023 10/05/2023 acyclovir 400 mg in NaCl 0.9% IVPB (ZOVIRAX) 400 mg, intravenous, at 108 mL/hr, Administer over 60 Minutes, Every 12 hours, First dose on Sat10/04/23 at 1900, Do NOT refrigerate., Drug Monitoring Program: Pharmacist to adjust medication dosing based on indication and drug clearance factors., Indications: Prophylaxis, medical 2017 (New Bag - Provider: Cate Mckinney R.N., BRAXTONN, CCRN - Comment: insufficient access) 0039 (NOV Hold - Provider: Transfer Provider, Automatic - Reason: Patient not available)0150 (NOV Unhold - Provider: Transfer Provider, Automatic)0629 (New Bag - Provider: Cate Mckinney R.N., TCRN, CCRN)1900 (Due) albumin human 25 % injection 25 g (COMPLETED) 25 g, intravenous, Once, On Sat10/04/23 at 2215, For 1 dose, If no infusion rate specified: Administer the 25% solution at 100 mL/hr 2305 (New Bag - Provider: Cate Mckinney R.N., TCRN, CCRN) albumin human 25 % injection 25 g (COMPLETED) 25 g, intravenous, Once, On Sat10/04/23 at 2215, For 1 dose, If no infusion rate specified: Administer the 25% solution at 100 mL/hr 2308 (New Bag - Provider: Cate Mckinney R.N., TCRN, CCRN) chlorhexidine 0.12 % mouthwash 15 mL (PERIDEX) 15 mL, swish & spit, 2 times daily, First dose on Sat10/04/23 at 2100, Swab oral cavity while on ventilator. Avoid brushing or use of mouthwash for at least 2 hours after application. Discontinue after extubation. 2016 (Given - Provider: Cate Mckinney R.N., BRAXTONN, CCRN) 003 (NOV Hold - Provider: Transfer Provider, Automatic - Reason: Patient not available)015 (NOV Unhold - Provider: Transfer Provider, Automatic)0838 (Given - Provider: Paul Saucedo R.N.)2099 (Due) famotidine injection 20 mg (PEPCID) 20 mg, intravenous, 2 times daily, First dose on Sat10/04/23 at 2100, Drug Monitoring Program: Pharmacist to adjust medication dosing based on indication and drug clearance factors. 2041 (Given - Provider: Cate Mckinney R.N., BRAXTONN, CCRN) 38 (NOV Hold - Provider: Transfer Provider, Automatic - Reason: Patient not available)015 (NOV Unhold - Provider: Transfer Provider, Automatic)0838 (Given - Provider: Paul Saucedo R.N.)2100 (Due) fentaNYL injection 50 mcg (SUBLIMAZE) (COMPLETED) 50 mcg, intravenous, Once, On Sat10/04/23 at 1212, For 1 dose, Up to maximum total dose of 200 mcg 1213 (Given - Provider: Aaliyah Nieves R.N.) fluconazole in NaCl 0.9 % (iso osm) IVPB 400 mg (DIFLUCAN) 400 mg, intravenous, at 100 mL/hr, Every 24 hours, First dose on Sat10/04/23 at 1600, Drug Monitoring Program: Pharmacist to adjust medication dosing based on indication and drug clearance factors., Indications: Intra-abdominal infection, healthcare associated 164 (New Bag - Provider: Prashant Perez R.N.) 1600 (Due) hydrocortisone sodium succinate (PF) injection 100 mg (Solu-CORTEF) 100 mg, intravenous, Every 8 hours, First dose on Sat10/04/23 at 1900, IV push over 30 seconds per 100 mg (For doses 500 mg or less) 1937 (Given - Provider: Cate Mckinney R.N., BRAXTONN, CCRN) 0039 (NOV Hold - Provider: Transfer Provider, Automatic - Reason: Patient not available)0150 (NOV Unhold - Provider: Transfer Provider, Automatic)0321 (Given - Provider: Cate Mckinney R.N., TCRN, CCRN)1139 (Given - Provider: Paul Saucedo R.N.)1900 (Due) hydrocortisone sodium succinate (PF) injection 100 mg (Solu-CORTEF) (COMPLETED) 100 mg, intravenous, Once, On Sat10/04/23 at 2330, For 1 dose, IV push over 30 seconds per 100 mg (For doses 500 mg or less) 0033 (Given - Provid er: Kayla Spencer M.D.) HYDROmorphone (PF) injection 0.5 mg (DILAUDID) (COMPLETED) 0.5 mg, intravenous, Once, On Sat10/04/23 at 0913, For 1 dose 0917 (Given - Provider: Melva Jc) HYDROmorphone (PF) injection 1 mg (DILAUDID) (COMPLETED) 1 mg, intravenous, Once, On Sat10/04/23 at 1029, For 1 dose 1034 (Given - Provider: Melva Jc) insulin aspart U-100 injection 0-13 Units (NovoLOG FlexPen) 0-13 Units, subcutaneous, Every 4 hours scheduled, First dose on 10/05/23 at 0800, Insulin Scale: Moderate Correction Scale, 140 - 179: 2 units, 180 - 219: 4 units, 220 - 259: 6 units, 260 - 299: 8 units, 300 - 339: 10 units, 340 - 379: 12 units, 380 - 399: 13 units, Greater than 399: Call service writing Insulin orders 0722 (Not Given - Provider: Paul Saucedo R.N. - Reason: Order parameters not met)1157 (Given - Provider: Paul Saucedo R.N.)1600 (Due)2000 (Due) ketamine injection 5 mg (KETALAR) (COMPLETED) 5 mg, intravenous, Once, On Sat10/05/23 at 0330, For 1 dose 0319 (Given - Provid er: Cate Mckinney R.N., TCRN, CCRN) Lactated Ringer's bolus 1,000 mL (COMPLETED) 1,000 mL, intravenous, at 2,000 mL/hr, Administer over 30 Minutes, Once, On Sat10/04/23 at 1600, For 1 dose 1617 (New Bag - Provider: Prashant Perez R.N.) Lactated Ringer's bolus 1,000 mL (COMPLETED) 1,000 mL, intravenous, at 2,000 mL/hr, Administer over 30 Minutes, Once, On Sat10/04/23 at 1815, For 1 dose 182 (New Bag - Provider: Prashant Perez R.N.) Lactated Ringer's bolus 1,000 mL (COMPLETED) 1,000 mL, intravenous, at 2,000 mL/hr, Administer over 30 Minutes, Once, On Sat10/04/23 at 1900, For 1 dose 2007 (New Bag - Provider: Cate Mckinney R.N., BRAXTONN, CCRN - Comment: hold per SICU) Lactated Ringer's bolus 1,000 mL (COMPLETED) 1,000 mL, intravenous, at 2,000 mL/hr, Administer over 30 Minutes, Once, On Sat10/04/23 at 2145, For 1 dose 2150 (New Bag - Provider: Cate Mckinney R.N., TCRN, CCRN) Lactated Ringer's bolus 1,000 mL (COMPLETED) 1,000 mL, intravenous, at 1,000 mL/hr, Administer over 1 Hours, Once, On Sat10/05/23 at 0345, For 1 dose 0327 (New Bag - Provider: Cate Mckinney R.N., TCRN, CCRN) Lactated Ringer's bolus 1,000 mL (COMPLETED) 1,000 mL, intravenous, at 250 mL/hr, Administer over 4 Hours, Once, On 10/05/23 at 0815, For 1 dose 0808 (New Bag - Provider: Paul Saucedo R.N.) levothyroxine injection 168 mcg 168 mcg, intravenous, Daily, First dose on Sat10/06/23 at 0900, For 2 doses, IV push over 1 minute 0039 (NOV Hold - Provider: Transfer Provider, Automatic - Reason: Patient not available)0150 (MAR Unhold - Provider: Transfer Provider, Automatic) levothyroxine injection 84 mcg (COMPLETED) 84 mcg, intravenous, Once, On 10/05/23 at 0700, For 1 dose, IV push over 1 minute 0039 ([facility] Hold - Provider: Transfer Provider, Automatic - Reason: Patient not available)0150 ([facility] Unhold - Provider: Transfer Provider, Automatic)0620 (Given - Provider: Cate Mckinney R.N., TCRN, CCRN) magnesium sulfate in water IVPB 2 g (COMPLETED) 2 g, intravenous, at 25 mL/hr, Administer over 120 Minutes, Once, On 10/05/23 at 0615, For 1 dose 0559 (New Bag - Provider: Cate Mckinney R.N., TCRN, CCRN) magnesium sulfate in water IVPB 4 g (COMPLETED) 4 g, intravenous, at 25 mL/hr, Administer over 240 Minutes, Once, On Sat10/04/23 at 1730, For 1 dose 1926 (New Bag - Provider: Cate Mckinney R.N., BRAXTONN, CCRN - Comment: line placement in progress) NaCl 0.9 % bolus 1,000 mL (COMPLETED) 1,000 mL, intravenous, at 1,000 mL/hr, Administer over 1 Hours, Once, On Sat10/04/23 at 0951, For 1 dose 0959 (New Bag - Provider: Melva Jc)1059 (Due: Stopped - Provider: Melva Jc) NaCl 0.9 % bolus 1,000 mL (COMPLETED) 1,000 mL, intravenous, at 1,000 mL/hr, Administer over 1 Hours, Once, On Sat10/04/23 at 1020, For 1 dose 1034 (New Bag - Provider: Melva Jc)1128 (Stopped - Provider: Melva Jc) NaCl 0.9 % bolus 250 mL 250 mL, intravenous, at 500 mL/hr, Administer over 30 Minutes, Every 12 hours, First dose on Sat10/04/23 at 1830, Administer 30 minutes before acyclovir dose 2007 (New Bag - Provider: Cate Mckinney R.N., BRAXTONN, CCRN) 0039 ([facility] Hold - Provider: Transfer Provider, Automatic - Reason: Patient not available)0150 ([facility] Unhold - Provider: Transfer Provider, Automatic)0556 (New Bag - Provider: Cate Mckinney R.N., TCRN, CCRN)1830 (Due) NaCl 0.9 % bolus 250 mL 250 mL, intravenous, at 500 mL/hr, Administer over 30 Minutes, Every 12 hours, First dose on Sat10/04/23 at 2000, Administer after acyclovir dose 2039 (New Bag - Provider: Cate Mckinney R.N., TCRN, CCRN) 0039 (NOV Hold - Provider: Transfer Provider, Automatic - Reason: Patient not available)0150 (NOV Unhold - Provider: Transfer Provider, Automatic)0742 (New Bag - Provider: Paul Saucedo R.N.)2000 (Due) ondansetron (PF) injection 4 mg (ZOFRAN) (COMPLETED) 4 mg, intravenous, Once, On Sat10/04/23 at 0815, For 1 dose 0838 (Given - Provider: Melva Jc) piperacillin-tazobactam in dextrose (iso osm) IVPB 3.375 g (ZOSYN) (COMPLETED) 3.375 g, intravenous, at 100 mL/hr, Administer over 0.5 Hours, Once, On Sat10/04/23 at 1007, For 1 dose, Drug Monitoring Program: Pharmacist to adjust medication dosing based on indication and drug clearance factors., Indications: Intra-abdominal infection, healthcare associated 1010 (New Bag - Provider: Melva Jc)1115 (Stopped - Provider: Melva Jc) piperacillin-tazobactam in dextrose (iso osm) IVPB 3.375 g (ZOSYN) 3.375 g, intravenous, at 100 mL/hr, Administer over 0.5 Hours, Every 6 hours, First dose on Sat10/04/23 at 1600, Drug Monitoring Program: Pharmacist to adjust medication dosing based on indication and drug clearance factors., Indications: Intra-abdominal infection, healthcare associated 1703 (New Bag - Provider: Prashant Perez R.N.)2144 (New Bag - Provider: Cate Mckinney R.N., TCRN, CCRN) 0347 (New Bag - Provider: Cate Mckinney R.N., TCRN, CCRN)0918 (New Bag - Provider: Paul Saucedo R.N.)1600 (Due)2200 (Due) potassium chloride IVPB 20 mEq (COMPLETED) 20 mEq, intravenous, at 50 mL/hr, Administer over 60 Minutes, Every 1 hour, First dose on Sat10/04/23 at 1700, For 1 dose, Central Line with Telemetry: 20 mEq per bag over 1 hour each. 2019 (New Bag - Provider: Cate Mckinney R.N., BRAXTONN, CCRN - Comment: insuffiecient acccess) sodium chloride (PF) 0.9 % injection 1-100 mL (COMPLETED) 1-100 mL, intravenous, Once, On Sat10/04/23 at 0935, For 1 dose, Imaging Protocol Orders 0942 (Given - Provider: Megan Perez R.N.) vancomycin in NaCl 0.9% IVPB 1,500 mg (COMPLETED) 1,500 mg (rounded from 1,418 mg = 20 mg/kg ? 70.9 kg Adjusted weight), intravenous, at 167 mL/hr, Administer over 90 Minutes, Once, On Sat10/04/23 at 2245, For 1 dose, Drug Monitoring Program: Pharmacist to adjust medication dosing based on indication and drug clearance factors., Indications: Intra-abdominal infection, community acquired 2239 (New Bag - Provider: Cate Mckinney R.N., GELA, CCRN) Continuous Medication Order 10/03/2023 10/04/2023 10/05/2023 fentaNYL 10 mcg/mL in NaCl 0.9% 250 [...] to titratable arousal order for RASS goal. 1652 (New Bag - Provider: Prashant Perez R.N.)1800 (Rate/Dose Verify - Provider: Prashant Perez R.N.)1935 (Rate/Dose Change - Provider: Cate Mckinney R.N., TCRN, CCRN)2000 (Rate/Dose Verify - Provider: Cate Mckinney R.N., TCRN, CCRN)2057 (Stopped - Provider: Cate Mckinney R.N., TCRN, CCRN - Comment: per sicu)2114 (Restarted - Provider: Cate Mckinney R.N., TCRN, CCRN)215 (Rate/Dose Change - Provider: Cate Mckinney R.N., TCRN, CCRN)2200 (Rate/Dose Verify - Provider: Cate Mckinney R.N., TCRN, CCRN)2300 (Rate/Dose Verify - Provider: Cate Mckinney R.N., TCRN, CCRN) 0000 (Rate/Dose Verify - Provider: Cate Mckinney R.N., TCRN, CCRN)0033 (Rate/Dose Verify - Provider: Kayla Spencer M.D.)0200 (Rate/Dose Verify - Provider: Cate Mckinney R.N., TCRN, CCRN)0300 (Rate/Dose Verify - Provider: Cate Mckinney R.N., TCRN, CCRN)0400 (Rate/Dose Verify - Provider: Cate Mckinney R.N., TCRN, CCRN)0500 (Rate/Dose Verify - Provider: Cate Mckinney R.N., TCRN, CCRN)0600 (Rate/Dose Verify - Provider: Sherry Lara.Shelby, TCRN, CCRN)0700 (Rate/Dose Verify - Provider: Cate Mckinney R.N., TCRN, CCRN)0800 (Rate/Dose Verify - Provider: Paul Saucedo R.N.)0837 (Rate/Dose Change - Provider: Paul Saucedo R.N.)0900 (Rate/Dose Verify - Provider: Paul Saucedo R.N.)1000 (Rate/Dose Verify - Provider: Paul Saucedo R.N.)1019 (Rate/Dose Change - Provider: Paul Saucedo R.N.)1100 (Rate/Dose Verify - Provider: Paul Saucedo R.N.)1200 (Rate/Dose Verify - Provider: Paul Saucedo R.N.) heparin (porcine) 100 Units/mL in NaCl 0.45% 250 mL infusion (CANCELED) 0-30 Units/kg/hr ? 75.6 kg Dosing weight (0-22.68 mL/hr), intravenous, Continuous, Starting on Sat10/04/23 at 2230, 25,000 Units in 250 mL, Intensity type: Low, Starting Dose (units/kg/hr): 12, Loading Dose: 0, Anti-Xa < 0.1: Adjust dose (Units/kg/hr) by: 4, Anti-Xa < 0.1: Repeat anti-Xa: 6 hours, Anti-Xa 0.1-0.19: Adjust Dose (Units/kg/hr) by: 2, Anti-Xa 0.1-0.19: Repeat anti-Xa: 6 hours, Anti-Xa 0.2-0.5: Adjust Dose (Units/kg/hr) by: 0, Anti-Xa 0.2-0.5: Repeat anti-Xa: 6 hours. If two consecutive therapeutic result, re-check next AM., Anti-Xa 0.51-0.6: Adjust Dose (Units/kg/hr) by: -1, Anti-Xa 0.51-0.6: Repeat anti-Xa: 6 hours after dose change, Anti-Xa 0.61-0.9: Hold Infusion: Stop infusion for 1 hour, Anti-Xa 0.61-0.9: Adjust Dose (Units/kg/hr) by: -2, Anti-Xa 0.61-0.9: Repeat anti-Xa: 6 hours after Heparin resumed, Anti-Xa >= 0.91: Hold Infusion: Stop infusion for 2 hours, Anti-Xa >= 0.91: Adjust Dose (Units/kg/hr): -4, Anti-Xa >= 0.91: Repeat anti-Xa: Repeat antiXa: 6 hours after Heparin resumed 2217 (New Bag - Provider: Cate Mckinney R.N., TCRN, CCRN)2300 (Rate/Dose Verify - Provider: Cate Mckinney R.N., TCRN, CCRN)2334 (Stopped - Provider: Cate Mckinney R.N., TCRN, CCRN) heparin (porcine) 100 Units/mL in NaCl 0.45% 250 mL infusion 0-30 Units/kg/hr ? 75.6 kg Dosing weight (0-22.68 mL/hr), intravenous, Continuous, Starting on 10/05/23 at 0200, 25,000 Units in 250 mL, Intensity type: Moderate, Starting Dose (units/kg/hr): 12, Anti-Xa < 0.1: Adjust Dose (Units/kg/hr) by: 4, Anti-Xa < 0.1: Loading Dose (Units/kg): 60, Anti-Xa < 0.1: Repeat anti-Xa: 6 hours, Anti-Xa 0.1-0.19: Adjust Dose (Units/kg/hr) by: 2, Anti-Xa 0.1-0.19: Loading Dose (Units/kg): 30, Anti-Xa 0.1-0.19: Repeat anti-Xa: 6 hours, Anti-Xa 0.2-0.5: Adjust Dose (Units/kg/hr) by: 0, Anti-Xa 0.2-0.5: Repeat anti-Xa: 6 hours. If two consecutive therapeutic result, re-check next AM., Anti-Xa > 0.19: Loading Dose (Units/kg): 0, Anti-Xa 0.51-0.6: Adjust Dose (Units/kg/hr) by: -1, Anti-Xa 0.51-0.6: Repeat anti-Xa: 6 hours, Anti-Xa 0.61-0.9: Hold Infusion: Stop infusion for 1 hour, Anti-Xa 0.61-0.9: Adjust Dose (Units/kg/hr) by: -2, Anti-Xa 0.61-0.9: Repeat anti-Xa: 6 hours after Heparin resumed, Anti-Xa >= 0.91: Hold Infusion: Stop infusion for 2 hours, Anti-Xa >= 0.91: Adjust Dose (Units/kg/hr) by: -4, Anti-Xa >= 0.91: Repeat anti-Xa: 6 hours after Heparin resumed 0154 ([facility] ider: Sherry Lara.Alvaro., TCRN, CCRN)0200 (Rate/Dose Verify - Provider: Cate Mckinney R.N., TCRN, CCRN)0300 (Rate/Dose Verify - Provider: Cate Mckinney R.N., TCRN, CCRN)0400 (Rate/Dose Verify - Provider: Cate Mckinney R.N., TCRN, CCRN)0500 (Rate/Dose Verify - Provider: Cate Mckinney R.N., TCRN, CCRN)0600 (Rate/Dose Verify - Provider: Cate Mckinney R.N., TCRN, CCRN)0700 (Rate/Dose Verify - Provider: Cate Mckinney R.N., TCRN, CCRN)0800 (Rate/Dose Verify - Provider: Paul Saucedo R.N.)0900 (Rate/Dose Verify - Provider: Paul Saucedo R.N.)0915 (Rate/Dose Verify - Provider: Paul Saucedo R.N. - Comment: [Action automatically changed])1000 (Rate/Dose Verify - Provider: Paul Saucedo R.N.)1100 (Rate/Dose Verify - Provider: Paul Saucedo R.N.)1200 (Rate/Dose Verify - Provider: Paul Saucedo R.N.) ketamine 2 mg/mL in NaCl 0.9 % 250 mL infusion (KETALAR) 0.1-0.5 mg/kg/hr ? 75.6 kg Dosing weight (3.78-18.9 mL/hr), intravenous, Continuous, Starting on 10/05/23 at 0400, Initiate at 0.1 mg/kg/min; titrate by 0.05 every 15 minutes to goal RASS of -1. Range 0.1-0.5 mg/kg/min 500 mg in 250 mL 0509 (New Bag - Prov ider: Sherry Lara.Shelby, TCRN, CCRN)0529 (Rate/Dose Change - Provider: Cate Mckinney R.N., TCRN, CCRN)0600 (Rate/Dose Verify - Provider: Cate Mckinney R.N., TCRN, CCRN)0633 (Rate/Dose Change - Provider: Cate Mckinney R.N., TCRN, CCRN)0700 (Rate/Dose Verify - Provider: Cate Mckinney R.N., TCRN, CCRN)0800 (Rate/Dose Verify - Provider: Paul Saucedo R.N.)0900 (Rate/Dose Verify - Provider: Paul Saucedo R.N.)1000 (Rate/Dose Verify - Provider: Paul Saucedo R.N.)1100 (Rate/Dose Verify - Provider: Paul Saucedo R.N.)1200 (Rate/Dose Verify - Provider: Paul Saucedo R.N.) Lactated Ringer's 250 mL/hr, intravenous, Continuous, Starting on Sat10/04/23 at 1600, For 21 hours 1640 (New Bag - Provider: Prashant Perez R.N.)1800 (Rate/Dose Verify - Provider: Prashant Perez R.N.)2000 (Rate/Dose Verify - Provider: Cate Mckinney R.N., TCRN, CCRN)2100 (Rate/Dose Verify - Provider: Cate Mckinney R.N., TCRN, CCRN)2200 (Rate/Dose Verify - Provider: Cate Mckinney R.N., TCRN, CCRN)2300 (Rate/Dose Verify - Provider: Cate Mckinney R.N., TCRN, CCRN)2326 (New Bag - Provider: Cate Mckinney R.N., TCRN, CCRN) 0000 (Rate/Dose Verify - Provider: Cate Mckinney R.N., TCRN, CCRN)0200 (Rate/Dose Verify - Provider: Sherry Lara.Shelby, TCRN, CCRN)0300 (Rate/Dose Verify - Provider: Cate Mckinney R.N., TCRN, CCRN)0400 (Rate/Dose Verify - Provider: Cate Mckinney R.N., TCRN, CCRN)0500 (Rate/Dose Verify - Provider: Cate Mckinney R.N., TCRN, CCRN)0526 (New Bag - Provider: Cate Mckinney R.N., TCRN, CCRN)0600 (Rate/Dose Verify - Provider: Cate Mckinney R.N., TCRN, CCRN)0700 (Rate/Dose Verify - Provider: Cate Mckinney R.N., TCRN, CCRN)0800 (Rate/Dose Verify - Provider: Paul Saucedo R.N.)0808 (New Bag - Provider: Paul Saucedo R.N.)0900 (Rate/Dose Verify - Provider: Paul Saucedo R.N.)1000 (Rate/Dose Verify - Provider: Sherry Preston.N.)1100 (Rate/Dose Verify - Provider: Sj PrestonN.)1200 (Rate/Dose Verify - Provider: Sj PrestonN.) Lactated Ringer's 250 mL/hr, intravenous, Continuous, Starting on Sat10/05/23 at 1230, For 20 hours 1221 (New Bag - Prov ider: Paul Saucedo R.N.) norepinephrine 16 mcg/mL in D5W 250 mL infusion (CANCELED) 0-0.3 mcg/kg/min ? 71 kg Dosing weight (0-79.875 mL/hr, rounded to 0-79.88 mL/hr), intravenous, Continuous, Starting on Sat10/04/23 at 1150, Intra-Op, Protect from light and avoid extravasation, Patient Type: Standard, Initiate at: 0.05 mcg/kg/min, Titrate at: 0.05 mcg/kg/min. every 5 min., Wean at: 0.01 mcg/kg/min. every 5 min., Goal: Other, Goal: Per provider 1323 (New Bag - Provider: Keena Diggs APRN, GYROSCOPIC ENGINEERING TECHNICIAN)1329 (Rate/Dose Change - Provider: Keena Diggs APRN, GYROSCOPIC ENGINEERING TECHNICIAN)1544 (Stopped - Provider: Linh Vallejo R.N., CCRN) norepinephrine 16 mcg/mL in D5W 250 mL infusion 0-0.3 mcg/kg/min ? 71 kg Dosing weight (0-79.875 mL/hr, rounded to 0-79.88 mL/hr), intravenous, Continuous, Starting on Sat10/04/23 at 1545, Protect from light and avoid extravasation, Patient Type: Sepsis, Initiate at: 0.05 mcg/kg/min, Titrate at: 0.05 mcg/kg/min. every 5 min., Wean at: 0.01 mcg/kg/min. every 5 min., Goal: MAP 65-75 1545 (New Bag - Provider: Linh Vallejo R.N., CCRN)1549 (Rate/Dose Change - Provider: Linh Vallejo R.N., CCRN)1600 (Rate/Dose Change - Provider: Prashant Perez R.N.)1605 (Rate/Dose Change - Provider: Prashant Perez R.N.)1611 (Rate/Dose Change - Provider: Sherry Bazan.N.)1655 (Rate/Dose Change - Provider: Prashant Perez R.N.)1704 (Rate/Dose Change - Provider: Prashant Perez R.N.)1716 (Rate/Dose Change - Provider: Prashant Perez R.N.)1721 (Rate/Dose Change - Provider: Prashant Perez R.N.)1743 (Rate/Dose Change - Provider: Prashant Perez R.N.)1752 (New Bag - Provider: Sherry Bazan.N.)1800 (Rate/Dose Verify - Provider: Sherry Bazan.N.)1901 (Rate/Dose Change - Provider: Cate Mckinney R.N., TCRN, CCRN)190 (Rate/Dose Change - Provider: Cate Mckinney R.N., TCRN, CCRN)1999 (Rate/Dose Verify - Provider: Cate Mckinney R.N., TCRN, CCRN)2000 (Rate/Dose Change - Provider: Cate Mckinney R.N., TCRN, CCRN)2022 (Rate/Dose Change - Provider: Cate Mckinney R.N., TCRN, CCRN)2049 (Rate/Dose Change - Provider: Sherry Lara.N., TCRN, CCRN)205 (Rate/Dose Change - Provider: Sherry Lara.N., TCRN, CCRN)2100 (Rate/Dose Verify - Provider: Sherry Lara.N., TCRN, CCRN)2104 (Rate/Dose Change - Provider: Cate Mckinney R.N., TCRN, CCRN)2140 (New Bag - Provider: Sherry Lara.N., TCRN, CCRN)2200 (Rate/Dose Verify - Provider: Sherry Lara.N., TCRN, CCRN)2300 (Rate/Dose Verify - Provider: Sherry Lara.N., TCRN, CCRN) 0000 (Rate/Dose Verify - Provider: Sherry Lara.Alvaro., TCRN, CCRN)0033 (Rate/Dose Verify - Provider: Kayla Spencer M.D.)0056 (Rate/Dose Change - Provider: Kayla Spencer M.D.)0057 (Rate/Dose Change - Provider: Kayla Spencer M.D.)0117 (Rate/Dose Change - Provider: Kayla Spencer M.D.)0150 (Rate/Dose Change - Provider: Kayla Spencer M.D.)0200 (Rate/Dose Verify - Provider: Sherry Lara.N., TCRN, CCRN)0237 (Rate/Dose Change - Provider: Sherry Lara.N., TCRN, CCRN)0300 (Rate/Dose Verify - Provider: Sherry Lara.N., TCRN, CCRN)0345 (New Bag - Provider: Sherry Lara.N., TCRN, CCRN)0400 (Rate/Dose Verify - Provider: Sherry Lara.N., TCRN, CCRN)0500 (Rate/Dose Verify - Provider: Cate Mckinney R.N., TCRN, CCRN)0600 (Rate/Dose Verify - Provider: Cate Mckinney R.N., TCRN, CCRN)0632 (New Bag - Provider: Cate Mckinney R.N., TCRN, CCRN)0700 (Rate/Dose Verify - Provider: Cate Mckinney R.N., TCRN, CCRN)0800 (Rate/Dose Verify - Provider: Paul Saucedo R.N.)0900 (Rate/Dose Verify - Provider: Paul Saucedo R.N.)0922 (New Bag - Provider: Paul Saucedo R.N.)1000 (Rate/Dose Verify - Provider: Paul Saucedo R.N.)1100 (Rate/Dose Verify - Provider: Paul Saucedo R.N.)1200 (Rate/Dose Verify - Provider: Paul Saucedo R.N.)1210 (New Bag - Provider: Paul Saucedo R.N.) phenylephrine 80 mcg/mL in NaCl 0.9% 250 mL infusion 0-1 mcg/kg/min ? 75.6 kg Dosing weight (0-56.7 mL/hr), intravenous, Continuous, Starting on Sat10/04/23 at 2130, 20 mg in 250 mL, Patient Type: Sepsis, initiate at: 0.5 mcg/kg/min., Titrate at: 0.1 mcg/kg/min. every 5 min., Goal: MAP 65-75 2133 (New Bag - Provider: Cate Mckinney R.N., TCRN, CCRN)2134 (Stopped - Provider: Cate Mckinney R.N., TCRN, CCRN)2250 (Restarted - Provider: Cate Mckinney R.N., TCRN, CCRN)2259 (Rate/Dose Change - Provider: Cate Mckinney R.N., TCRN, CCRN)2300 (Rate/Dose Verify - Provider: Cate Mckinney R.N., TCRN, CCRN)2316 (Rate/Dose Change - Provider: Cate Mckinney R.N., TCRN, CCRN)2345 (Rate/Dose Change - Provider: Cate Mckinney R.N., TCRN, CCRN)2351 (Rate/Dose Change - Provider: Sherry Lara.N., TCRN, CCRN) 0000 (Rate/Dose Verify - Provider: Sherry Lara.N., TCRN, CCRN)0005 (Rate/Dose Change - Provider: Sherry Lara.N., TCRN, CCRN)0033 (Rate/Dose Verify - Provider: Kayla Spencer M.D.)0200 (Rate/Dose Verify - Provider: Cate Mckinney R.N., TCRN, CCRN)0241 (Rate/Dose Change - Provider: Sherry Lara.N., TCRN, CCRN)0300 (Rate/Dose Verify - Provider: Sherry Lara.N., TCRN, CCRN)0304 (Rate/Dose Change - Provider: Sherry Lara.N., TCRN, CCRN)0350 (Rate/Dose Change - Provider: Cate Mckinney R.N., TCRN, CCRN)0400 (Rate/Dose Verify - Provider: Cate Mckinney R.N., TCRN, CCRN)0432 (New Bag - Provider: Cate Mckinney R.N., TCRN, CCRN)0500 (Rate/Dose Verify - Provider: Sherry Lara.N., TCRN, CCRN)0600 (Rate/Dose Verify - Provider: Sherry Lara.N., TCRN, CCRN)0700 (Rate/Dose Verify - Provider: Cate Mckinney R.N., TCRN, CCRN)0800 (Rate/Dose Verify - Provider: Paul Saucedo R.N.)0830 (Rate/Dose Change - Provider: Paul Saucedo R.N.)0900 (Rate/Dose Verify - Provider: Paul Saucedo R.N.)0910 (New Bag - Provider: Sherry Preston.Alvaro.)0923 (Rate/Dose Change - Provider: Sheryr Preston.N.)0939 (Rate/Dose Change - Provider: Paul Saucedo R.N.)0958 (Rate/Dose Change - Provider: Paul Saucedo R.N.)1000 (Rate/Dose Verify - Provider: Paul Saucedo R.N.)1018 (Rate/Dose Change - Provider: Sj PrestonN.)1100 (Rate/Dose Verify - Provider: Paul Saucedo R.N.)1149 (Rate/Dose Change - Provider: Sherry Preston.N.)1200 (Rate/Dose Verify - Provider: Paul Saucedo R.N.) propofol 10 mg/mL infusion (DIPRIVAN) (CANCELED) 5-80 mcg/kg/min ? 71 kg Dosing weight (2.13-34.08 mL/hr), intravenous, Continuous, Starting on Sat10/04/23 at 1600, Type: Titrate, Initiate at: 5 mcg/kg/min., Titrate at: 5 mcg/kg/min. every 5 min., Goal: For sedation - refer to titratable arousal order for RASS goal 1546 (New Bag - Provider: Linh Vallejo R.N., CCRN)1800 (Rate/Dose Verify - Provider: Prashant Perez R.N.)1844 (Stopped - Provider: Prashant Perez R.N.)1924 (Restarted - Provider: Cate Mckinney R.N., TCRN, CCRN)1936 (Rate/Dose Change - Provider: Cate Mckinney R.N., TCRN, CCRN)2000 (Rate/Dose Verify - Provider: Cate Mckinney R.N., TCRN, CCRN)2100 (Rate/Dose Verify - Provider: Cate Mckinney R.N., TCRN, CCRN)2104 (Rate/Dose Change - Provider: Cate Mckinney R.N., TCRN, CCRN)2200 (Rate/Dose Verify - Provider: Cate Mckinney R.N., TCRN, CCRN)2300 (Rate/Dose Verify - Provider: Cate E Hank, R.N., TCRN, CCRN) 0000 (Rate/Dose Verify - Provider: Cate Mckinney R.N., TCRN, CCRN)0200 (Rate/Dose Verify - Provider: Cate Mckinney R.N., TCRN, CCRN)0300 (Rate/Dose Verify - Provider: Cate Mckinney R.N., TCRN, CCRN)0400 (Rate/Dose Verify - Provider: Cate Mckinney R.N., TCRN, CCRN)0500 (Rate/Dose Verify - Provider: Sherry Lara.Shelby, TCRN, CCRN) vasopressin 20 unit/100 mL (0.2 unit/mL) in D5W 100 mL infusion (PITRESSIN) (CANCELED) 0.04 Units/min (12 mL/hr), intravenous, Continuous, Starting on Sat10/04/23 at 1324, Intra-Op, 20 units in 100 mL 1402 (New Bag - Provider: Keena Diggs CELL STRIPPER, [facility]) vasopressin 20 unit/100 mL (0.2 unit/mL) in D5W 100 mL infusion (PITRESSIN) 0.04 Units/min (12 mL/hr), intravenous, Continuous, Starting on Sat10/04/23 at 1545, 20 units in 100 mL 1546 (New Bag - Provider: Linh Vallejo R.N., CCRN)1800 (Rate/Dose Verify - Provider: Prashant Perez RDanuta)2000 (Rate/Dose Verify - Provider: Cate Mckinney R.N., TCRN, CCRN)2017 (New Bag - Provider: Cate Mckinney R.N., TCRN, CCRN)2100 (Rate/Dose Verify - Provider: Cate Mckinney R.N., TCRN, CCRN)2200 (Rate/Dose Verify - Provider: Cate Mckinney R.N., TCRN, CCRN)2300 (Rate/Dose Verify - Provider: Cate Mckinney R.N., TCRN, CCRN) 0000 (Rate/Dose Verify - Provider: Cate Mckinney R.N., TCRN, CCRN)0033 (Rate/Dose Verify - Provider: Kayla Spencer M.D.)0200 (Rate/Dose Verify - Provider: Cate Mckinney R.N., TCRN, CCRN)0300 (Rate/Dose Verify - Provider: Sj LaraNJohanna, TCRN, CCRN)0342 (New Bag - Provider: Cate Mckinney R.N., TCRN, CCRN)0400 (Rate/Dose Verify - Provider: Cate Mckinney R.N., TCRN, CCRN)0500 (Rate/Dose Verify - Provider: Sherry Lara.Shelby, TCRN, CCRN)0600 (Rate/Dose Verify - Provider: Cate Mckinney R.N., TCRN, CCRN)0700 (Rate/Dose Verify - Provider: Cate Mckinney R.N., TCRN, CCRN)0800 (Rate/Dose Verify - Provider: Paul Saucedo R.N.)0900 (Rate/Dose Verify - Provider: Paul Saucedo R.N.)1000 (Rate/Dose Verify - Provider: Paul Saucedo R.N.)1040 (New Bag - Provider: Paul Saucedo R.N.)1100 (Rate/Dose Verify - Provider: Paul Saucedo R.N.)1200 (Rate/Dose Verify - Provider: Paul Saucedo R.N.) PRN Medication Order 10/03/2023 10/04/2023 10/05/2023 BUPivacaine liposome (PF) 20 mL, BUPivacaine-EPINEPHrine (PF) 30 mL 50 mL injection (CANCELED) As needed, Starting on Sat10/04/23 at 1350, Intra-Op 1350 (Given - Provider: Rudy Lazar M.D.)1439 (Given - Provider: Rudy Lazar M.D.) fentaNYL bolus from bag 25 mcg (SUBLIMAZE) 25 mcg, intravenous, Every 1 hour PRN, severe pain or score 7-10 of 10, sedation, Starting on Sat10/04/23 at 1601 1924 (Bolus from Bag - Provider: Cate E Hank, R.N., TCRN, CCRN)2116 (Bolus from Bag - Provider: Cate Mckinney R.N., TCRN, CCRN)2357 (Bolus from Bag - Provider: Cate Mckinney R.N., TCRN, CCRN) 0039 (MAR Hold - Provider: Transfer Provider, Automatic - Reason: Patient not available)0150 (MAR Unhold - Provider: Transfer Provider, Automatic)0236 (Bolus from Bag - Provider: Cate Mckinney R.N., TCRN, CCRN)0426 (Bolus from Bag - Provider: Cate Mckinney R.N., TCRN, CCRN)0612 (Bolus from Bag - Provider: Cate Mckinney R.N., TCRN, CCRN) fentaNYL injection 25 mcg (SUBLIMAZE) (CANCELED) 25 mcg, intravenous, Every 2 min PRN, moderate pain or score 4-6 of 10, severe pain or score 7-10 of 10, Starting on Sat10/04/23 at 1205, PACU (only), Up to maximum total dose of 100 mcg 1219 (Given - Provider: Aaliyah Nieves R.N.)1235 (Given - Provider: Aaliyah Nieves R.N.) fentaNYL injection 50 mcg (SUBLIMAZE) (CANCELED) 50 mcg, intravenous, Every 1 hour PRN, severe pain or score 7-10 of 10, Starting on Sat10/04/23 at 0814, For 3 doses 0838 (Given - Provider: Melva Jc) fentaNYL injection 75 mcg (SUBLIMAZE) (CANCELED) 75 mcg, intravenous, Every 1 hour PRN, severe pain or score 7-10 of 10, Starting on Sat10/04/23 at 0850, For 2 doses 0855 (Given - Provider: Melva Jc)1008 (Not Given - Provider: Belen Vasquez R.N., [facility] - Reason: Discontinued) heparin (porcine) 1,000 unit/mL injection 2,300 Units(Linked Group 1) 2,300 Units (rounded from 2,268 Units = 30 Units/kg ? 75.6 kg Dosing weight), intravenous, As needed, antiXa 0.1-0.19, Starting on Sat10/05/23 at 0143, Intensity type: Moderate, Anti-Xa < 0.1: Loading Dose (Units/kg): 60, Anti-Xa 0.1-0.19: Loading Dose (Units/kg): 30, Anti-Xa > 0.19: Loading Dose (Units/kg): 0 heparin (porcine) 1,000 unit/mL injection 4,500 Units(Linked Group 1) 4,500 Units (rounded from 4,536 Units = 60 Units/kg ? 75.6 kg Dosing weight), intravenous, As needed, antiXa less than 0.1, Starting on 10/05/23 at 0143, Intensity type: Moderate, Anti-Xa < 0.1: Loading Dose (Units/kg): 60, Anti-Xa 0.1-0.19: Loading Dose (Units/kg): 30, Anti-Xa > 0.19: Loading Dose (Units/kg): 0 HYDROmorphone (PF) injection 1 mg (DILAUDID) (CANCELED) 1 mg, intravenous, Every 1 hour PRN, severe pain or score 7-10 of 10, Starting on Sat10/04/23 at 1001 1004 (Given - Provider: Belen Vasquez R.N., [facility])1119 (Given - Provider: Melva Jc)1246 (MAR Hold - Provider: Transfer Provider, Automatic - Reason: Patient not available)1524 ([facility] Unhold - Provider: Transfer Provider, Automatic) insulin regular 1 Unit/mL in NaCl 0.9% 100 mL infusion (CANCELED) 0-25 Units/hr (0-25 mL/hr), intravenous, Continuous Infusion: [...] 120-150 mg/dl, Starting Insulin Infusion Factor: 0.03 1726 (New Bag - Provider: Prashant Perez R.N.)1800 (Rate/Dose Verify - Provider: Prashant Perez R.N.)1855 (Rate/Dose Change - Provider: Sherry Bazan.NJohanna)2000 (Rate/Dose Verify - Provider: Cate Mckinney, R.N., TCRN, CCRN)2016 (Rate/Dose Change - Provider: Cate Mckinney R.N., TCRN, CCRN)2100 (Rate/Dose Verify - Provider: Sherry Lara.N., TCRN, CCRN)2104 (Rate/Dose Change - Provider: Cate Mckinney R.N., TCRN, CCRN)2200 (Rate/Dose Verify - Provider: Cate Mckinney R.N., TCRN, CCRN)2207 (Rate/Dose Change - Provider: Cate Mckinney, R.N., TCRN, CCRN)2300 (Rate/Dose Verify - Provider: Cate Mckinney R.N., TCRN, CCRN)2320 (Rate/Dose Change - Provider: Sherry Lara.N., TCRN, CCRN) 0000 (Rate/Dose Verify - Provider: Cate Mckinney R.N., TCRN, CCRN)0003 (Rate/Dose Change - Provider: Cate Mckinney R.N., TCRN, CCRN)0033 (Rate/Dose Verify - Provider: Kayla Spencer M.D.)0200 (Rate/Dose Verify - Provider: Cate Mckinney R.N., TCRN, CCRN)0211 (Rate/Dose Change - Provider: Sherry Lara.N., TCRN, CCRN)0300 (Rate/Dose Verify - Provider: Cate Mckinney R.N., TCRN, CCRN)0315 (Rate/Dose Verify - Provider: Cate Mckinney R.N., TCRN, CCRN - Comment: [Action automatically changed])0400 (Rate/Dose Verify - Provider: Cate Mckinney R.N., TCRN, CCRN)0415 (Rate/Dose Change - Provider: Cate Mckinney R.N., TCRN, CCRN)0500 (Rate/Dose Verify - Provider: Cate Mckinney R.N., BRAXTONN, CCRN)0503 (Rate/Dose Verify - Provider: Cate Mckinney R.N., TCRN, CCRN - Comment: [Action automatically changed])0529 (Stopped - Provider: Cate Mckinney R.N., GELA, CCRN) iohexoL 300 mg iodine/mL solution 1-200 mL (OMNIPAQUE) (COMPLETED) 1-200 mL, intravenous, Once in imaging, contrast, Starting on Sat10/04/23 at 0934, For 1 dose, Imaging Protocol Orders, Dose per Radiant Medication Guidelines 0942 (Given - Provider: Megan Perez R.N.) NaCl 0.45 % infusion (CANCELED) 20 mL/hr, intravenous, Continuous Infusion: Per Instructions PRN, Infuse if no compatible IV solutions are ordered with IV insulin, Starting on Sat10/04/23 at 1634, Infuse insulin into an existing line of a compatible IV solution and Y site insulin infusion into existing line below the infusion pump. If no compatible IV solutions are ordered, infuse into an existing line of 0.45% NaCL infusion at 20 ml/hr. 1736 (New Bag - Provider: Prashant Perez R.N.)1800 (Rate/Dose Verify - Provider: Prahsant Perez R.N.)2000 (Rate/Dose Verify - Provider: Cate Mckinney R.N., BRAXTONN, CCRN)2100 (Rate/Dose Verify - Provider: Cate Mckinney R.N., BRAXTONN, CCRN)2200 (Rate/Dose Verify - Provider: Cate Mckinney R.N., BRAXTONN, CCRN)2300 (Rate/Dose Verify - Provider: Cate Mckinney R.N., TCRN, CCRN) 0000 (Rate/Dose Verify - Provider: Cate Mckinney R.N., TCRN, CCRN)0200 (Rate/Dose Verify - Provider: Cate Mckinney R.N., TCRN, CCRN)0300 (Rate/Dose Verify - Provider: Cate Mckinney R.N., TCRN, CCRN)0400 (Rate/Dose Verify - Provider: Cate Mckinney R.N., TCRN, CCRN)0500 (Rate/Dose Verify - Provider: Cate Mckinney R.N., TCRN, CCRN) NaCl 0.9% infusion 20-500 mL/hr, intravenous, Once as needed, Between Units of Blood Products, Starting on 10/05/23 at 0248, For 1 dose, Infuse at the same rate as the blood infusion until tubing cleared. Nurse may reduce rate to 20 mL/hour or as otherwise directed until next blood infusion arrives then discontinue when infusion complete. ondansetron (PF) injection 4 mg (ZOFRAN) 4 mg, intravenous, Every 6 hours PRN, nausea, vomiting, Starting on Sat10/04/23 at 1526, Use Ondansetron before Prochlorperazine or Promethazine 0039 (MAR Hold - Provider: Transfer Provider, Automatic - Reason: Patient not available)0150 (MAR Unhold - Provider: Transfer Provider, Automatic) perflutren lipid microspheres injection (DEFINITY) (COMPLETED) intravenous, Once in imaging, contrast, Starting on 10/05/23 at 0842, For 1 dose, Intraprocedure - Diagnostic, See protocol. 0843 (Given - Provid er: Ramon Arriaza R.N.) Linked Groups Order Group 1: heparin (porcine) 1,000 unit/mL injection 2,300 UnitsJump to med 2,300 Units (rounded from 2,268 Units = 30 Units/kg ? 75.6 kg Dosing weight), intravenous, As needed, antiXa 0.1-0.19, Starting on 10/05/23 at 0143, Intensity type: Moderate, Anti-Xa < 0.1: Loading Dose (Units/kg): 60, Anti-Xa 0.1-0.19: Loading Dose (Units/kg): 30, Anti-Xa > 0.19: Loading Dose (Units/kg): 0 Or heparin (porcine) 1,000 unit/mL injection 4,500 UnitsJump to med 4,500 Units (rounded from 4,536 Units = 60 Units/kg ? 75.6 kg Dosing weight), intravenous, As needed, antiXa less than 0.1, Starting on 10/05/23 at 0143, Intensity type: Moderate, Anti-Xa < 0.1: Loading Dose (Units/kg): 60, Anti-Xa 0.1-0.19: Loading Dose (Units/kg): 30, Anti-Xa > 0.19: Loading Dose (Units/kg): 0 documented in this encounter Additional Health Concerns Infection Onset Date Last Indicated Resolved Time Protective Environment 05/17/2023 05/17/2023 documented as of this encounter Care Teams [employer] Relationship Specialty Start Date End Date Elsewhere, Pcp PCP - General Internal Medicine 09/14/23 documented as of this encounter
--- OUTSIDE RECORDS SUMMARY | 2023-10-05 12:50 | XMS_ITS | Encounter Summary ---
Author Name Unknown Organization [facility] Address [address] [place] [phone] Care Team Providers Care Manager Hiv Name Role Phone Elsewhere, Pcp Primary Care Provider Unavailabl e Encounter Details Date Type Department Care Team (Late st Contact Info) Description 10/04/2023 12:48 PM WOOD CARVER HAND Anesthesia Event [facility] MAIN OR [address] [place] [address] [phone] Ronald De Paz M.D. [address] [place] [phone] Keena Diggs, CHILD CARE ASSISTANT, SERVICE OFFICER [address] [place] [address] [phone] Anesthesia Record Procedure Summary Procedure Name Responsible Anesthesiologist Anesthesia Start Time Anesthesia Stop Time EXPLORATORY LAPAROTOMY. SMALL BOWEL RESECTION. RETURN TRIPS TO OR. TEMPORARY CLOSURE. WOUND VAC PLACEMENT. Ronald De Paz M.D. 10/04/23 1248 10/04/23 1531 Events Date Time Event Comment 10/04/2023 1201 1248 An Start Machine/Equipme nt Checked Infection Precautions Followed Procedure/Site Verified NPO Status Verified Supine Standard ASA Monitors Applied 1316 An Induction 1319 An Intubation 1330 Turnover to Proceduralist 1348 Proc Start 1353 Lab Drawn ABG 1445 Proc Fin 1503 Turnover to ANE Staff 1512 an stop data 1512 Airway Device Ma intained to Post Op Area 1512 Monitored Transport 1512 Transfer to ICU/PCU Anesthes ia transport medically necessary Report received and care transferred Transfer Details: Ventilation and oxygen saturation stable during transport 1523 Care transferred to ICU Ashley willson 1531 An End I completed my handoff to the receiving staff during which we 1. Identified the patient 2. Identified the responsible provider 3. Reviewed the pertinent medical history 4. Discussed the surgical course 5. Reviewed intra-op anesthesia management and issues during anesthesia 6. Set expectations for post-procedure period 7. Allowed opportunity for questions and acknowledgement of understanding. Meds Name Total midazolam 1 mg/mL injection 2 mg lidocaine 2% (mg) injection 80 mg rocuronium 10 mg/mL injection 120 mg phenylephrine 100 mcg/mL injection 500 m cg ondansetron 4 mg/2 mL injection 4 mg sugammadex 100 mg/mL injection 200 mg propofol 10 mg/mL infusion 104.69 mg propofol 10 mg/mL injection 30 mg phenylephrine 20 mg/250 mL infusion 5.03 mg norepinephrine 16 mcg/mL in D5W 250 mL i nfusion 1.78 mg ketamine 10 mg/mL injection 30 mg vasopressin 20 Units/mL injection 5 Unit s vasopressin 20 unit/100 mL ( 0.2 unit/mL) in D5W 100 mL infusion (PITRESSIN) 3.56 Units ceFAZolin 2 g heparin 5,000 Units/mL injection 5,000 U nits calcium chloride 100 mg/mL injection 1,0 00 mg metroNIDAZOLE 500 mg IVPB 500 mg albumin human bottle 5% 250 mL hydrocortisone sod succinate 100 mg/2 mL injection 75 mg Lactated Ringers Free Drip 800 mL lactated ringers free drip 300 mL NaCl 0.9 % free drip 1,700 mL * Agents No agents on file. * Blood Name Total RED BLOOD CELLS 330 mL Lines, Drains, and Airways Type Details Placement Removal Implanted Port Single Lumen 07/22/23; 1023; Permanent (tunneled, implanted); Yes; Yes; Yes; Yes; Chlorhexidine (Preferred); Yes; Cap, Gloves, Gown, Large drape, Mask (Clinician), Mask (All others in room); N/A; Polyurethane; Right; Chest; Sutured; Dr. Freeman/Dr. Guevara 07/22/23 1023 by Leighton Gotti R.N. Wound 08/07/23; 0800; Y; Traumatic; Toe 2nd; Anterior, Left 08/07/23 0800 by Carolee Gonzalez R.N. Wound 09/24/23; 0830; Y; Traumatic; Toe 1st, great; Anterior, Right 09/24/23 0830 by Jaquan Monroy RDanuta NG/OG Tube 09/27/23; 1230; Percutaneous endoscopic, Gastrostomy-jejunostomy; No; Bumper; 20 Fr (10 fr. J extension); 4 cm (100cm on J extension); Quadrant (abdomen), Left, Upper; Small bore (ENFit??) 09/27/23 1230 by Alyson Cabral R.N. Indwelling Urinary Catheter Placement Date: 10/04/23; [...] Diggs APRN, CRNA NG/OG Tube 10/04/23; 1322; Nasogastric; 16 Fr; Right 10/04/23 1322 by Keena [...] Jesus Felix M.D. Wound 10/04/23; 1416; N; Incision; Abdomen; Medial, Upper 10/04/23 1416 by Lisandra Casey M.SDanuta, R.N. Peripheral IV Placement Date: 09/10 03/02; Placement Time: 1331; Catheter Size: 14 G ; Orientation: Right; Location: Antecubital; Technique: Ultrasound guidance; Removal Date: 10/04/23; Removal Time: 189910/04/23 133 by Keena Diggs CHILD CARE ASSISTANT, SAL 10/04/23 190 by Cate Mckinney R.N., TCRN, CCRN Peripheral IV Placement Date: 09/10 03/02; Placement Time: 133; Catheter Size: 14 G ; Orientation: Right; Location: Antecubital; Technique: Ultrasound guidance; Removal Date: 10/04/23; Removal Time: 184910/04/231332 by Jose De Jesus Felix M.D. 10/04/231849 by Prashant Perez R.N. documented in this encounter Social History Tobacco Use Types Packs/Day Years Used Date Smoking Tobacco: Former Cigarettes 1 22 Q uit: 02/07/1989 Passive Smoke Exposure: Never Smokeless Tobacco: Former Snuff, Chew Quit: 04/18/2023 Alcohol Use Standard Drinks/Week Comments Not Currently 3 (1 standard drink = 0.6 oz pur e alcohol) [facility] Utilities Answer Date Recorded In the past 12 months has [facility], gas, oil, or water [email or web address] threatened to shut off services in your [...] often do you attend chur ch or moravian services? Never 01/10/2023 Do you belong to any clubs o r organizations such as congregational groups, unions, fraternal or athletic groups, or [...] Answer Date Recorded PHQ-2 Score 0 04/25/2020 [facility] - Occupational [...] your living situation today? I have a [facility] place to live 09/15/2023 Education Answer Date [...] OR Notes * Anesthesia Postprocedure Evaluation - Carolee Corado, RYLEE, SAL, DNAP - 10/04/2023 3:32 PM CST Patient: Hola Lau Procedure Summary Date: 10/04/23 Room / Location: [address] / [facility] in [place], [place] Anesthesia Start: 1248 Anesthesia Stop: 1531 Procedure: EXPLORATORY LAPAROTOMY. SMALL BOWEL RESECTION. RETURN TRIPS TO OR. TEMPORARY CLOSURE. WOUND VAC PLACEMENT. Diagnosis: Peritonitis Acute Generalized (HCC) (Peritonitis Acute Generalized (HCC) [K65.0]) Providers: Rudy Lazar M.D. Responsible Provider: Ronald De Paz M.D. Anesthesia Type: general ASA Status: 4 - Emergent Anesthesia Type: general Last vitals Vitals Value Taken Time BP 136/71 10/04/23 1530 Temp 34.8 ??C 10/04/23 1531 Pulse 113 10/04/23 1531 Resp 18 10/04/23 1531 SpO2 100 % 10/04/23 1531 Vitals shown include unfiled device data. Please reference Vitals flowsheet for most recent vital signs. Anesthesia Post Evaluation Patient Disposition: monitored unit, expectation for recovery time deferred to receiving unit Cardiovascular status: hemodynamics (HR & BP) unacceptable requiring ongoing treatment Respiratory status: mechanically ventilated Temperature: hypo or hyperthermic requiring ongoing treatment Oxygen requirements: assisted ventilation (non-invasive or mechanical ventilation) with additional oxygen Level of consciousness: unconscious, patient unable to participate in evaluation Pain score: pain unable to be assessed Post Op nausea/vomiting: none Hydration status: euvolemic CARVER HAND * Anesthesia Procedure Notes - Keena Diggs APRN, CRNA - 10/04/2023 1:46 PM CSTAssociated Order(s): Airway Airway Date/Time: 10/04/2023 1:19 PM Performed by: Keena Diggs APRN, CRNA Authorized by: Ronald De Paz M.D. Patient location during procedure: OR / Procedure Area PROCEDURE DETAILS: Mask difficulty assessment: easy mask Final airway type: video laryngoscope Laryngeal Manipulation: no Final best view of glottic structures - Cormack/Lehane Score: grade 1 ETT location: oral VL device: glide scope Eunice scope blade size: 4 Tube size: 7.5 ETT distance at teeth/gum: 23 Oral tube type: standard ETT Cuffed: yes Leak Test Performed: no Number of attempt to successful placement: 1 Airway confirmation: bilateral breath sounds, positive ETCO2 and bilateral chest rise Other previous techniques attempted: none PRE PROCEDURE DETAILS: Pre evaluation for airway management: procedure Urgency: elective Preoxygenation: bag valve mask SEDATION / ANESTHESIA Anesthesia method: anesthesia POST PROCEDURE DETAILS: Procedure outcome: successful Notable Events: no complications CARVER HAND * Anesthesia Procedure Notes - Jose De Jesus Felix M.D. - 10/04/2023 1:45 PM WOOD [facility] Associated Order(s): Invasive Catheter Invasive Catheter Date/Time: 10/04/2023 1:45 PM Performed by: Jose De Jesus Felix M.D. Authorized by: Ronald De Paz M.D. Location: OR PROCEDURE DETAILS: Line type: arterial Laterality: left Location: brachial Location details: new site Age group: adult Catheter diameter: 20 Ga Technique: ultrasound guided Ultrasound guidance: image not saved Monitored: yes Number of attempts: 2 UNIVERSAL PROTOCOL All [...] preparation: chlorhexidine SEDATION / ANESTHESIA Anesthesia method: topical application Topical application type: lidocaine POST-PROCEDURE DETAILS: Procedure completed successfully: yes Line secured: secured with sutureless device Chlorhexidine disc around insertion site and under catheter with slight turn: yes Notable Events - arterial: none COMMENTS Exchanged for Argon ATTESTATION STATEMENT A resident or fellow participated in the procedure, and the method consultant was present for the entire procedure. CAR[facility] * Anesthesia Preprocedure Evaluation - Ronald De Paz M.D. - 10/04/2023 12:00 PM CST Preprocedure Anesthesia & H&P Assessment Procedure Summary Date/Time: 10/04/23 1123 Procedure: EXPLORATORY LAPAROTOMY. POSSIBLE BOWEL RESECTION. RETURN TRIPS TO OR. POSSIBLE TEMPORARYCLOSURE. PROCEED INDICATED. Diagnosis: Peritonitis Acute Generalized (HCC) [K65.0] Pre-op diagnosis: Peritonitis Acute Generalized (HCC) [K65.0] Location: OR [address] / [facility] in [place], [place] Providers: Cameron Saenz M.D. Pertinent components of the patient's history including current problem list, medical history, surgical history, family history, social history, medications and allergies were reviewed. Present illness and pre-op diagnosis were confirmed. The planned surgery / procedure was verified with the patient / legal guardian. The patient's general health condition remains unchanged RELEVANT COMORBID CONDITIONS CV (+) Hypertension Essential Primary RENAL/REPRO (+) Chronic Kidney Disease Stage 2 Glomerular Filtration Rate 60 To 89 ENDO (+) Diabetes Mellitus Type 2 With Diabetic Neuropathy (HCC) (+) Hypothyroidism Postsurgical HEME (+) Anemia (+) Thrombocytopenia (HCC) Other (+) Nicotine Dependence Chewing Tobacco (+) Obesity Body Mass Index 30-39.9 Adult OBJECTIVE PHYSICAL EXAMINATION Airway (HEENT) Mallampati: III TM Distance: >3 FB Neck ROM: Full Mouth Opening: >3 cm Upper Lip Bite Test Class: I Cardiovascular Rhythm: Regular Rate: Normal Cardiovascular Assessment: cardiovascular normal Functional Capacity: >4 METS Pulmonary Pulmonary Assessment: Clear General / Constitutional Constitutional Assessment: Normal General State of Health:: healthy appearing and calm ASSESSMENT / PLAN ANESTHESIA PLAN ASA: 4 - Emergent Anesthesia Plan: general Patient seen and allergies reviewed, anesthesia plan and risks discussed directly with patient /legal guardian or through an lifestyle director. Risks/Benefits/Alternatives of Blood transfusion discussed with patient / legal guardian, includingan opportunity to ask questions and/or decline some or all transfusion therapies. The patient / legal guardian consented to the use of all blood products, as deemed medically necessary Approval to Proceed: approved for anesthesia CARVER HAND documented in this encounter Plan of Treatment Upcoming Encounters Date Type Department Care Team (Latest Contact Info) Description 10/06/2023 9:04 AM WOOD CARVER HAND - 10/06/2023 11:24 AM WOOD CARVER HAND Surgery [facility] MAIN OR [address] [place] [phone] Cameron Saenz M.D. [address] [place] [phone] ABDOMINAL EXPLORATION, REMOVAL ABTHERA, POSSBLE BOWEL RESECTION, PROCEED INDICATED 10/11/2023 7:00 AM WOOD CARVER HAND Appointment Department of Laboratory Medicine and Pathology, [facility], in [place], [place] [address] [place] [phone] Arti Epstein M.B.B.S. [address] [place] [phone] 10/11/2023 9:00 AM WOOD CARVER HAND Office Visit Division of Hematology in [place], [place] [address] [place] [phone] Arti Epstein M.B.B.S. [address] [place] [phone] 10/11/2023 10:00 AM WOOD CARVER HAND Infusion Department of Oncology in [place], [place] [address] [place] [phone] Bev Gifford APRN, C.N.P., M.S.N. [address] [place] [phone] 11/19/2023 10:00 AM CDT Office Visit Division of Endocrinology in [address] [phone] West Mendoza APRN C.N.P., M.S. [address] [place] [phone] 11/19/2023 2:30 PM CDT Comprehensive Visit Division of Hepatobiliary and Pancreas Surgery in [address] [phone] Wesley Hamilton M.D. [address] [place] [phone] Scheduled Procedures Name Priority Associated Diagnoses Date/Ti me LAPAROTOMY - ABDOMINAL WASHOUT Ischemia Intestinal With Stricture (HCC) 10/06/2023 9:04 AM WOOD [facility] HAND documented as of this encounter Procedures Procedure Name Priority Date/Time Associated Diagnosis Comments LDA ANE ARTERIAL LINE INSERTION Routine 10/04/2023 1:45 PM WOOD CARVER HAND ID ARTL CATH/CNULA MONITOR PERC Routine 10/04/2023 1:45 PM WOOD CARVER HAND LDA ANE ENDOTRACHEAL AIRWAY Routine 10/04/2023 1:19 PM WOOD CARVER HAND documented in this encounter Results * ID ARTL CATH/CNULA MONITOR PERC, LDA ANE ARTERIAL LINE INSERTION (10/04/2023 1:45 PM WOOD CARVER HAND) Narrative Ronald De Paz M.D. - 10/04/2023 1:45 PM WOOD CARVER HAND Jose De Jesus Felix M.D. ? 10/04/2023 [...] fellow participated in the procedure, and the method consultant was present for the entire procedure. Ronald De Paz M.D. PROCEDURE/MINOR STEPHAN GICAL ORDERABLES * LDA ANE ENDOTRACHEAL AIRWAY (10/04/2023 1:19 PM WOOD CARVER HAND) Narrative Keena Diggs APRN, CRNA - 10/04/2023 1:19 PM WOOD CARVER HAND Keena Diggs APRN, CRNA ? 10/04/2023 ??1:49 [...] ETT location: oral VL device: glide scope Eunice scope blade size: 4 Tube size: 7.5 [...] Ronald De Paz M.D. ANESTHESIA ORDERABL ES documented in this encounter Visit Diagnoses Not on filedocumented in this encounter Administered Medications Inactive Administered Medications - up to 3 most recent administrations Medication Order MAR Action Action Date Dose Rate Site albumin human 5 % injection intravenous, As needed, Starting on Sat10/04/23 at 1416, Anesthesia Intra-op Given 10/04/2023 2:16 PM WOOD CARVER HAND 250 mL calcium chloride injection intravenous, As needed, Starting on Sat10/04/23 at 1405, Anesthesia Intra-op Given 10/04/2023 2:05 PM WOOD CARVER HAND 1,000 mg ceFAZolin injection (ANCEF) intravenous, As needed, Starting on Sat10/04/23 at 1341, Anesthesia Intra-op Given 10/04/2023 1:41 PM WOOD CARVER HAND 2 g heparin (porcine) injection subcutaneous, As needed, Starting on Sat10/04/23 at 1342, Anesthesia Intra-op Given 10/04/2023 1:42 PM WOOD CARVER HAND 5,000 Units hydrocortisone sodium succinate (PF) injection (Solu-CORTEF) intravenous, As needed, Starting on Sat10/04/23 at 1444, Anesthesia Intra-op Given 10/04/2023 2:44 PM WOOD CARVER HAND 75 mg ketamine injection (KETALAR) intravenous, As needed, Starting on Sat10/04/23 at 1316, Anesthesia Intra-op Given 10/04/2023 1:16 PM WOOD CARVER HAND 30 mg Lactated Ringer's intravenous, Continuous Infusion: Per Instructions PRN, Starting on Sat10/04/23 at 1250, Anesthesia Intra-op New Bag 10/04/2023 12:50 PM WOOD CARVER HAND Lactated Ringer's intravenous, Continuous Infusion: Per Instructions PRN, Starting on Sat10/04/23 at 1333, Anesthesia Intra-op New Bag 10/04/2023 1:33 PM WOOD CARVER HAND lidocaine (PF) (cardiac) injection intravenous, As needed, Starting on Sat10/04/23 at 1316, Anesthesia Intra-op Given 10/04/2023 1:16 PM WOOD CARVER HAND 80 mg metroNIDAZOLE in NaCl (iso osm) IVPB (FLAGYL) intravenous, Administer over 30 Minutes, As needed, Starting on Sat10/04/23 at 1400, Anesthesia Intra-op Given 10/04/2023 2:00 PM WOOD CARVER HAND 500 mg midazolam (PF) injection (VERSED) intravenous, As needed, Starting on Sat10/04/23 at 1254, Anesthesia Intra-op Given 10/04/2023 1:09 PM WOOD CARVER HAND 1 mg Given 10/04/2023 12:54 PM WOOD CARVER HAND 1 mg NaCl 0.9% infusion intravenous, Continuous Infusion: Per Instructions PRN, Starting on Sat10/04/23 at 1334, Anesthesia Intra-op New Bag 10/04/2023 2:03 PM WOOD CARVER HAND New Bag 10/04/2023 1:34 PM WOOD CARVER HAND norepinephrine 16 mcg/mL in D5W 250 mL infusion 0-0.3 mcg/kg/min ? 71 kg Dosing weight (0-79.875 mL/hr, rounded to 0-79.88 mL/hr), intravenous, Continuous, Starting on Sat10/04/23 at 1150, Intra-Op, Protect from light and avoid extravasation, Patient Type: Standard, Initiate at: 0.05 mcg/kg/min, Titrate at: 0.05 mcg/kg/min. every 5 min., Wean at: 0.01 mcg/kg/min. every 5 min., Goal: Other, Goal: Per provider Rate/Dose Change 10/04/2023 1:29 PM WOOD CARVER HAND 0.2 mcg/kg/min 53.25 mL/hr New Bag 10/04/2023 1:23 PM WOOD CARVER HAND 0.1 mcg/kg/min 26.625 mL /hr ondansetron (PF) injection (ZOFRAN) intravenous, As needed, Starting on Sat10/04/23 at 1449, Anesthesia Intra-op Given 10/04/2023 2:49 PM WOOD CARVER HAND 4 mg phenylephrine 80 mcg/mL in NaCl 0.9% 250 mL infusion intravenous, Continuous Infusion: Per Instructions PRN, Starting on Sat10/04/23 at 1309, Anesthesia Intra-op Rate/Dose Change 10/04/2023 1:31 PM WOOD CARVER HAND 0.5 mcg/kg/min 27.075 mL/hr Rate/Dose Change 10/04/2023 1:25 PM WOOD CARVER HAND 0.8 mcg/kg/min 43. 32 mL/hr New Bag 10/04/2023 1:09 PM WOOD CARVER HAND 0.3 mcg/kg/min 16.245 mL /hr phenylephrine injection intravenous, As needed, Starting on Sat10/04/23 at 1316, Anesthesia Intra-op Given 10/04/2023 1:24 PM WOOD CARVER HAND 300 mcg Given 10/04/2023 1:16 PM WOOD CARVER HAND 200 mcg propofol 10 mg/mL infusion (DIPRIVAN) intravenous, Continuous Infusion: Per Instructions PRN, Starting on Sat10/04/23 at 1502, Anesthesia Intra-op New Bag 10/04/2023 3:02 PM WOOD CARVER HAND 50 mcg/kg/min 21.66 mL/hr propofoL injection (DIPRIVAN) intravenous, As needed, Starting on Sat10/04/23 at 1316, Anesthesia Intra-op Given 10/04/2023 1:16 PM WOOD CARVER HAND 30 mg rocuronium injection (ZEMURON) intravenous, As needed, Starting on Sat10/04/23 at 1317, Anesthesia Intra-op Given 10/04/2023 2:21 PM WOOD CARVER HAND 20 mg Given 10/04/2023 1:17 PM WOOD CARVER HAND 100 mg sugammadex injection (BRIDION) intravenous, As needed, Starting on Sat10/04/23 at 1449, Anesthesia Intra-op Given 10/04/2023 2:49 PM WOOD CARVER HAND 200 mg Transfuse Red Blood Cells : Routine New Bag 10/04/2023 2:33 PM WOOD CARVER HAND vasopressin 20 unit/100 mL (0.2 unit/mL) in D5W 100 mL infusion (PITRESSIN) 0.04 Units/min (12 mL/hr), intravenous, Continuous, Starting on Sat10/04/23 at 1324, Intra-Op, 20 units in 100 mL New Bag 10/04/2023 2:02 PM WOOD CARVER HAND 0.04 Units/min 12 mL/hr vasopressin injection (PITRESSIN) intravenous, As needed, Starting on Sat10/04/23 at 1322, Anesthesia Intra-op Given 10/04/2023 2:28 PM WOOD CARVER HAND 1 Units Given 10/04/2023 2:16 PM WOOD CARVER HAND 1 Units Given 10/04/2023 2:05 PM WOOD CARVER HAND 1 Units documented in this encounter Additional Health Concerns Infection Onset Date Last Indicated Resolved Time Protective Environment 05/17/2023 05/17/2023 documented as of this encounter Care Teams Manager Hiv Relationship Specialty Start Date End Date Elsewhere, Pcp PCP - General Internal Medicine 09/14/23 documented as of this encounter
--- OUTSIDE RECORDS SUMMARY | 2023-10-05 12:51 | XMS_ITS | Encounter Summary ---
Author Name Unknown Organization [facility] Address [address] [place] [address] Care Team Providers Care Research Geneticist Name Role Phone Elsewhere, Pcp Primary Care Provider Unavailabl e Reason for Visit * Reason Comments Abnormal ECG Abdominal Pain Encounter Details Date Type Department Care Team ([facility] st Contact Info) Description 10/04/2023 11:23 AM ENGINEHOUSE BRAKEMAN - 10/04/2023 2:52 PM ENGINEHOUSE BRAKEMAN Surgery RST ROMB MAIN OR [address] [place] [phone] Rudy Lazar M.D. [address] [place] [phone] EXPLORATORY LAPAROTOMY. SMALL BOWEL RESECTION. RETURN TRIPS TO OR. TEMPORARY CLOSURE. WOUND VAC PLACEMENT. Social History Tobacco Use Types Packs/Day Years Used Date Smoking Tobacco: Former Cigarettes 1 22 Q uit: 02/07/1989 Passive Smoke Exposure: Never Smokeless Tobacco: Former Snuff, Chew Quit: 04/18/2023 Alcohol Use Standard Drinks/Week Comments Not Currently 3 (1 standard drink = 0.6 oz pur e alcohol) [facility] Utilities Answer Date Recorded In the past 12 months has e electric, gas, oil, or water [employer] threatened to shut off services in your [...] often do you attend chur ch or congregational services? Never 01/10/2023 Do you belong to any clubs o r organizations such as zoroastrianism groups, unions, fraternal or athletic groups, or [...] Answer Date Recorded PHQ-2 Score 0 04/25/2020 [facility] of Occupat ional Health - Occupational Stress [...] your living situation today? I have a [facility] place to live 09/15/2023 Education Answer [...] Sign Reading Time Taken Comments Blood Pressure 146/76 10/04/2023 11:15 AM ENGINEHOUSE BRAKEMAN Pulse 118 10/04/2023 10:15 AM ENGINEHOUSE BRAKEMAN Temperature 36.5 ??C (97.7 ??F) 10/04/2023 10:[address] Respiratory Rate 19 10/04/2023 11:15 AM ENGINEHOUSE BRAKEMAN Oxygen Saturation 100% 10/04/2023 10:15 AM ENGINEHOUSE BRAKEMAN Inhaled Oxygen Concentration - - Weight - - Height - - Body Mass Index - - documented in this encounter Progress Notes * Honey Cabral R.R.T., L.R.T. - 10/05/2023 2:08 AM CST 10/05/23 0200 Internal Patient Transport Internal Patient Transport From [place] Transport Equipment Assisted Ventilation Transport Time (minutes) 30 Respiratory Therapy provided patient transport from [place] to [place] [address] using assisted ventilation settings: CMV R 18/Vt 470/+10/30%, Conversation with in- room provider prior to transport; patient transported without incident. Electronically signed by: Honey Cabral R.R.T., L.RMaicol 10/05/23 2:09 AM ENGINEHOUSE BRAKEMAN NEHOUSE BRAKEMAN * Honey Cabral R.R.T., L.R.T. - 10/05/2023 2:07 AM CST 10/05/23 0030 Internal Patient Transport Internal Patient Transport To OR Transport Equipment Assisted Ventilation Transport Time (minutes) 30 Respiratory Therapy provided patient transport from [place] [address] to [facility] using assisted ventilation settings: SPONT 10/+10/30%. Conversation with in-room provider prior to transport; patient transported without incident. Electronically signed by: Honey Cabral R.R.T., L.R.TJohanna 10/05/23 2:08 AM ENGINEHOUSE BRAKEMAN NEHOUSE BRAKEMAN * Kimberley Sierra APRN, C.N.P., D.N.P. - 10/05/2023 1:57 AM CST SUBJECTIVE BRIEF SUMMARY: Mr. Lau is a 72-year-old male with history of [...] 105 I/O last 3 completed shifts: In: 80428.1 [Enteric (NG/OG) Tube:40] Out: 2743 [Urine:1388; Emesis [...] pending further OR findings - Cultures: - 10/04: streptococcus - 1 dose of vanc given [...] while in discontinuity - Last bowel movement: COMPOTYPE OPERATOR - Bowel regimen: none given discontinuity - [...] Acute (Blood Loss Anemia) SICU service pager: [phone] NEHOUSE BRAKEMAN * Jorge Gómez, Noemi.D., R.Ph. - 10/04/2023 5:55 PM CST Pharmacist [...] Exparel CV: ST and HD supported by NE/METAL BENCH PATTERNMAKER, was on ATII but now off. Holding [...] IV and levothyroxine to IV at 168mcg M///Sun and 84mcg T/Th/Sat Covering intra-abdominal contamination with [...] in UpToDate and Yasmeen et al. Isidro Declan Deng. 2009. [id number]. Jorge Gómez Pharm.D., R.Ph. Pager [phone] NEHOUSE BRAKEMAN * Jeaneth Gonzalez M.D. - 10/04/2023 5:00 PM CST I have rounded with and discussed the care of Mr. Hola Lau with the resident/OFFICE MESSENGER-PA team.Please see the ICU team's documentation from today for further details as I reviewed pertinent history, physical exam, labs, and imaging and agree with the history, physical exam, assessment, and plan. Brief Summary: ICU admission note for 7 [facility] SICU. 72-year-old male. Critically ill. Presented to the ED this morning with diffuse abdominal pain of abrupt onset. 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 The last cycle wasDecember 2022. Preoperative abdominal CT revealed diffuse portal venous [...] procedural time which has been billed separately. NEHOUSE BRAKEMAN documented in this encounter H&P Notes * [...] Life partner Rhona is surrogate decision maker. NEHOUSE BRAKEMAN documented in this encounter Procedure Notes * Mary New APRN, C.N.P. - 10/04/2023 4:25 PM CSTAssociated [...] Events: none Patient tolerance of procedure: successful NEHOUSE BRAKEMAN Associated attestation - Jeaneth Gonzalez M.D. - 10/04/2023 5:00 PM ENGINEHOUSE BRAKEMAN I was present for the entirety of [...] or surrogate Jayna Albert M.D. 10/04/23 1119 NEHOUSE BRAKEMAN documented in this encounter Consult Notes * Aaliyah Chacko M.B.B.S. - 10/04/2023 12:09 PM CSTAssociated Order(s): General Surgery consult ([facility]) General Surgery consult ([facility]) Referring Provider: Jayna Albert M.D. Today's [...] dilated CBD. EGD demonstrated necroinflammatory duodenal ulcer 04/2023- EGD done with push enteroscopy identified large [...] transverse due to scope length 09/2023 - /final cycle of Preston-R-CHP was omitted due to [...] retired and lives with his partner in [place]. ROS: as mentioned in HPI, otherwise negative [...] L4-L5 laminectomy; Surgeon: Ricardo Saucedo M.D.; Location: [facility] ROMB OR EYE SURGERY 1987 cataracts HAND [...] Critical findings discussed with Jayna Albert M.D. ([id number]) at 10:20 AM on 10/04/2023. ASSESSMENT / [...] Lazar, who was in agreement. Please page [phone] (HSS-A) with any questions or concerns. Maru March.B.S. NEHOUSE BRAKEMAN Associated attestation - Rudy Lazar M.D. - 10/04/2023 12:37 PM ENGINEHOUSE BRAKEMAN Patient seen and examined with resident(s) and [...] this encounter Nursing Notes * Joel Bales R.R.T., L.R.T. - 10/05/2023 6:12 AM CST Patient [...] cm H20-10 cm H20] 10 cm H20 FL SUP: [7 cm H20-10 cm H20] 7 [...] Roderick Bales R.R.T., L.R.T. 10/05/23 6:12 AM NEHOUSE BRAKEMAN * Jaimee Houston R.R.T., L.R.T. - 10/04/2023 6:37 PM CST Alert Information: [...] Reposition ETT every 4 hour and PRN. NEHOUSE BRAKEMAN documented in this encounter OR Notes * Op Note - Omar Hennessy M.D. - 10/05/2023 12:47 AM CST Pre-op Diagnosis Ischemia Mesenteric (HCC) Post-op Diagnosis Ischemia Mesenteric (HCC) Roofing Foreman A drafter assistant actively participated and was necessary for [...] ICU with pressor support. Omar Hennessy M.D. NEHOUSE BRAKEMAN * Brief Op Note - Juan Mahmood M.D., M.S. - 10/05/2023 12:47 AM ENGINEHOUSE BRAKEMAN Pre-op Diagnosis Ischemia Mesenteric (HCC) Post-op Diagnosis Ischemia Mesenteric (HCC) Findings As expected. Complications None Midline laparotomy incision extension inferiorly, 46 cm of ileal resection, diffuse scattered smallbowel ischemia, 60-120 cm of viable small bowel identified, distended gallbladder, otherwise viablelarge bowel, ABThera replaced Juan Mhamood M.D., M.S. NEHOUSE BRAKEMAN * Op Note - Aaliyah Chacko M.B.BJohannaSJohanna - 10/04/2023 1:48 PM CST Pre-op Diagnosis Peritonitis Acute Generalized (HCC) Post-op Diagnosis Peritonitis Acute Generalized (HCC) Roofing Foreman A drafter assistant actively participated and was necessary for [...] was grasped and similarly opened sharply with Mariposa. The fascia and peritoneal openings were elongated [...] intubated, in a stable but critical state. Aaliyah Ginna, M.B.B.S. NEHOUSE BRAKEMAN Associated attestation - Rudy Lazar M.D. - 10/04/2023 3:50 PM ENGINEHOUSE BRAKEMAN I have scrubbed and supervised the case [...] about 45 minutes. Melva Jc 10/04/23 1021 NEHOUSE BRAKEMAN * Ramon Hennessy M.D. - 10/04/2023 8:18 [...] (HCC) Ramon Hennessy M.D. Resident 10/05/23 0020 NEHOUSE BRAKEMAN * Jayna Albert M.D. - 10/04/2023 8:16 AM CST I have personally seen and examined this patient. I have fully participated in the care of this patient. I have reviewed all clinical information including history, physical exam, orders, and plan. Iagree with the note of the resident. This [...] Radiology. I also informed the general surgery attendant by phone regarding my concerns that patient [...] been consulted. I am personally paging the golf tournament consultant to make them aware of the [...] 10/05/23 0552 Jayna Albert M.D. 10/05/23 0556 NEHOUSE BRAKEMAN documented in this encounter Plan of Treatment Upcoming Encounters Date Type Department Care Team (Latest Contact Info) Description 10/06/2023 9:04 AM ENGINEHOUSE BRAKEMAN - 10/06/2023 11:24 AM ENGINEHOUSE BRAKEMAN Surgery RST ROMB MAIN OR [address] [place] [phone] Cameron Saenz M.D. [address] [place] [phone] ABDOMINAL EXPLORATION, REMOVAL ABTHERA, POSSBLE BOWEL RESECTION, PROCEED INDICATED 10/11/2023 7:00 AM ENGINEHOUSE BRAKEMAN Appointment Department of Laboratory Medicine and Pathology, [facility], in [place], [place] [address] [place] [phone] Arti Epstein M.B.B.S. [address] [place] [phone] 10/11/2023 9:00 AM ENGINEHOUSE BRAKEMAN Office Visit Division of Hematology in [place], [place] [address] [place] [phone] Arti Epstein M.B.B.S. [address] [place] [phone] 10/11/2023 10:00 AM ENGINEHOUSE BRAKEMAN Infusion Department of Oncology in [place], [place] [address] [place] [phone] Bev Gifford APRN, C.N.P., M.S.N. [address] [place] [phone] 11/19/2023 10:00 AM CDT Office Visit Division of Endocrinology in [place], [place] [address] [place] [phone] West Mendoza APRN, C.NMark., M.S. [address] [place] [phone] 11/19/2023 2:30 PM CDT Comprehensive Visit Division of Hepatobiliary and Pancreas Surgery in [place], [place] [address] [place] [phone] Wesley Hamilton M.D. [address] [place] [phone] Pending Results Name Type Priority Associated Diagnoses Date/Time Bacteria / Joel Culture, Blood #1 Microbiology STAT 10/04/2023 8:4 1 AM ENGINEHOUSE BRAKEMAN Bacteria / Joel Culture, Blood # 2 Microbiology STAT 10/04/2023 8: 50 AM ENGINEHOUSE BRAKEMAN Prepare Red Blood Cells, 2 Units Blood Bank STAT 10/02/2023 5:51 AM ENGINEHOUSE BRAKEMAN Surgical Pathology, Frozen Lab Pathology and Cytology Routine Peritonitis Acute Generalized (HCC) 10/04/2023 2:26 PM ENGINEHOUSE BRAKEMAN Echo Transthoracic (TTE) Echocardiography STAT 10/05/2023 9:17 AM ENGINEHOUSE BRAKEMAN Bacteria / Joel Culture, Blood #1 Microbiology Routine 10/05/2023 4:4 5 AM ENGINEHOUSE BRAKEMAN Bacteria / Joel Culture, Blood #2 Microbiology Routine 10/05/2023 5:0 3 AM ENGINEHOUSE BRAKEMAN Prepare Red Blood Cells Blood Bank Routine 10/02/2023 5:51 AM ENGINEHOUSE BRAKEMAN Scheduled Orders Name Type Priority Associated Diagnoses Order Schedule Surgical Pathology, Frozen Lab Pathology and Cytology Routine Peritonitis Acute Generalized (HCC) Release Upon Ordering for 1 Occurrences starting 10/04/2023 until 10/13/2023 Pulse oximetry, continuous Intensive Care Unit (ICU) status Respiratory Care Routine respiratory u se [id number] ask reminder at 8am and 8pm until [...] Routine respira tory use only - 0800, 2000 until discontinued starting 10/04/2023, 3 completed Echo [...] Intestinal With Stricture (HCC) 10/06/2023 9:04 AM ENGINEHOUSE BRAKEMAN documented as of this encounter Procedures The patient is currently admitted. The information in this section might not be complete until the patient is discharged. Procedure Name Priority Date/Time Associated Diagnosis Comments LACTATE, B Timed 10/05/2023 12:01 PM ENGINEHOUSE BRAKEMAN PATIENT STATUS Timed 10/05/2023 12:01 PM ENGINEHOUSE BRAKEMAN ABG W/COOX Timed 10/05/2023 12:01 PM ENGINEHOUSE BRAKEMAN GLUCOSE POCT, B Routine 10/05/2023 11:45 AM ENGINEHOUSE BRAKEMAN GLUCOSE POCT, B Routine 10/05/2023 7:21 AM ENGINEHOUSE BRAKEMAN HEPARIN LEVEL ANTI-XA ASSAY, P Timed 10/05/2023 7:21 AM ENGINEHOUSE BRAKEMAN GLUCOSE POCT, B Routine 10/05/2023 6:15 AM ENGINEHOUSE BRAKEMAN DX CHEST PORTABLE 1 VIEW RAD - Routine (most inpatients and all outpatients) 10/05/2023 6:07 AM ENGINEHOUSE BRAKEMAN GLUCOSE POCT, B Routine 10/05/2023 5:02 AM ENGINEHOUSE BRAKEMAN PATIENT STATUS Timed 10/05/2023 4:28 AM ENGINEHOUSE BRAKEMAN ABG W/COOX Timed 10/05/2023 4:28 AM ENGINEHOUSE BRAKEMAN CALCIUM, IONIZED, S/B Timed 10/05/2023 4:28 AM ENGINEHOUSE BRAKEMAN CYSTATIN C WITH EGFR Timed 10/05/2023 4:27 AM ENGINEHOUSE BRAKEMAN CBC WITHOUT DIFFERENTIAL, B Routine 10/05/2023 4:27 AM ENGINEHOUSE BRAKEMAN PHOSPHORUS (INORGANIC), S Timed 10/05/2023 4:27 AM ENGINEHOUSE BRAKEMAN MAGNESIUM, S Timed 10/05/2023 4:27 AM ENGINEHOUSE BRAKEMAN LACTATE, B/P Timed 10/05/2023 4:27 AM ENGINEHOUSE BRAKEMAN BASIC METABOLIC PANEL, S/P Timed 10/05/2023 4:27 AM ENGINEHOUSE BRAKEMAN TRANSFUSE RED BLOOD CELLS Routine 10/05/2023 4:22 AM ENGINEHOUSE BRAKEMAN GLUCOSE POCT, B Routine 10/05/2023 4:12 AM ENGINEHOUSE BRAKEMAN GLUCOSE POCT, B Routine 10/05/2023 3:15 AM ENGINEHOUSE BRAKEMAN TRANSFUSE RED BLOOD CELLS Routine 10/05/2023 3:09 AM ENGINEHOUSE BRAKEMAN GLUCOSE POCT, B Routine 10/05/2023 2:10 AM ENGINEHOUSE BRAKEMAN LACTATE, B STAT 10/05/2023 12:52 AM ENGINEHOUSE BRAKEMAN PATIENT STATUS STAT 10/05/2023 12:52 AM ENGINEHOUSE BRAKEMAN SODIUM, B STAT 10/05/2023 12:52 AM ENGINEHOUSE BRAKEMAN ABG W/COOX STAT 10/05/2023 12:52 AM ENGINEHOUSE BRAKEMAN POTASSIUM, B STAT 10/05/2023 12:52 AM ENGINEHOUSE BRAKEMAN GLUCOSE, WHOLE BLOOD STAT 10/05/2023 12:52 AM ENGINEHOUSE BRAKEMAN CALCIUM, IONIZED, S/B STAT 10/05/2023 12:52 AM ENGINEHOUSE BRAKEMAN GLUCOSE POCT, B Routine 10/05/2023 12:02 AM ENGINEHOUSE BRAKEMAN GLUCOSE POCT, B Routine 10/04/2023 11:19 PM ENGINEHOUSE BRAKEMAN ACTIVATED PARTIAL THROMBOPLASTIN TIME (APTT), P STAT 10/04/2023 10:08 PM ENGINEHOUSE BRAKEMAN GLUCOSE POCT, B Routine 10/04/2023 10:07 PM ENGINEHOUSE BRAKEMAN CBC WITHOUT DIFFERENTIAL, B STAT 10/04/2023 10:03 PM ENGINEHOUSE BRAKEMAN BASIC METABOLIC PANEL, S/P STAT 10/04/2023 10:03 PM ENGINEHOUSE BRAKEMAN THROMBOELASTOGRAPH, KAOLIN, B STAT 10/04/2023 9:59 PM ENGINEHOUSE BRAKEMAN GLUCOSE POCT, B Routine 10/04/2023 9:03 PM ENGINEHOUSE BRAKEMAN US UPPER EXTREMITY VEINS RIGHT RAD - Semiurgent (Fast; most ED patients; some inpatients) 10/04/2023 8:40 PM ENGINEHOUSE BRAKEMAN GLUCOSE POCT, B Routine 10/04/2023 8:15 PM ENGINEHOUSE BRAKEMAN PATIENT STATUS Timed 10/04/2023 7:54 PM ENGINEHOUSE BRAKEMAN ABG W/COOX Timed 10/04/2023 7:54 PM ENGINEHOUSE BRAKEMAN LACTATE, B/P Timed 10/04/2023 7:53 PM ENGINEHOUSE BRAKEMAN URINALYSIS, DIPSTICK Routine 10/04/2023 6:39 PM ENGINEHOUSE BRAKEMAN GLUCOSE POCT, B Routine 10/04/2023 6:32 PM ENGINEHOUSE BRAKEMAN TROPONIN T, 2H/6H, 5TH GEN, P Timed 10/04/2023 5:57 PM ENGINEHOUSE BRAKEMAN DX CHEST PORTABLE 1 VIEW RAD - Routine (most inpatients and all outpatients) 10/04/2023 5:42 PM ENGINEHOUSE BRAKEMAN GLUCOSE POCT, B Routine 10/04/2023 5:01 PM ENGINEHOUSE BRAKEMAN AIRWAY CARE Routine 10/04/2023 4:31 PM ENGINEHOUSE BRAKEMAN AIRWAY CARE Routine 10/04/2023 4:31 PM ENGINEHOUSE BRAKEMAN AIRWAY CARE Routine 10/04/2023 4:31 PM ENGINEHOUSE BRAKEMAN MC ANE CENTRAL LINE GENERIC PERFORMABLE Routine 10/04/2023 4:25 PM ENGINEHOUSE BRAKEMAN Peritonitis Acute Generalized (HCC) LDA ANE CENTRAL LINE TRIPLE LUMEN Routine 10/04/2023 4:25 PM ENGINEHOUSE BRAKEMAN Peritonitis Acute Generalized (HCC) FL INS NON-JEFRY CVC >5YR Routine 10/04/2023 4:25 PM ENGINEHOUSE BRAKEMAN Peritonitis Acute Generalized (HCC) ECG Semiurgent (Fast, most ED patients, some inpatients) 10/04/2023 4:17 PM ENGINEHOUSE BRAKEMAN TROPONIN T, BASELINE, 5TH GEN, P STAT 10/04/2023 3:49 PM ENGINEHOUSE BRAKEMAN PATIENT STATUS STAT 10/04/2023 3:49 PM ENGINEHOUSE BRAKEMAN HEPATIC FUNCTION PANEL, S STAT 10/04/2023 3:49 PM ENGINEHOUSE BRAKEMAN ABG W/COOX STAT 10/04/2023 3:49 PM ENGINEHOUSE BRAKEMAN PROTHROMBIN TIME (PT), P STAT 10/04/2023 3:49 PM ENGINEHOUSE BRAKEMAN CBC WITHOUT DIFFERENTIAL, B STAT 10/04/2023 3:49 PM ENGINEHOUSE BRAKEMAN PHOSPHORUS (INORGANIC), S STAT 10/04/2023 3:49 PM ENGINEHOUSE BRAKEMAN MAGNESIUM, S STAT 10/04/2023 3:49 PM ENGINEHOUSE BRAKEMAN LACTATE, B/P STAT 10/04/2023 3:49 PM ENGINEHOUSE BRAKEMAN CALCIUM, IONIZED, S/B STAT 10/04/2023 3:49 PM ENGINEHOUSE BRAKEMAN BASIC METABOLIC PANEL, S/P STAT 10/04/2023 3:49 PM ENGINEHOUSE BRAKEMAN DX CHEST PORTABLE 1 VIEW RAD - Emergent (Fastest; for the most critically ill patients) 10/04/2023 3:44 PM ENGINEHOUSE BRAKEMAN MECHANICAL VENTILATOR Routine 10/04/2023 3:41 PM ENGINEHOUSE BRAKEMAN MECHANICAL VENTILATOR Routine 10/04/2023 3:41 PM ENGINEHOUSE BRAKEMAN MECHANICAL VENTILATOR Routine 10/04/2023 3:41 PM ENGINEHOUSE BRAKEMAN MECHANICAL VENTILATOR Routine 10/04/2023 3:41 PM ENGINEHOUSE BRAKEMAN MECHANICAL VENTILATOR Routine 10/04/2023 3:41 PM ENGINEHOUSE BRAKEMAN MECHANICAL VENTILATOR Routine 10/04/2023 3:41 PM ENGINEHOUSE BRAKEMAN THROMBOELASTOGRAPH, KAOLIN, B STAT 10/04/2023 2:58 PM ENGINEHOUSE BRAKEMAN TRANSFUSE RED BLOOD CELLS Routine 10/04/2023 2:33 PM ENGINEHOUSE BRAKEMAN SODIUM, B STAT 10/04/2023 2:00 PM ENGINEHOUSE BRAKEMAN ABG W/COOX STAT 10/04/2023 2:00 PM ENGINEHOUSE BRAKEMAN POTASSIUM, B STAT 10/04/2023 2:00 PM ENGINEHOUSE BRAKEMAN GLUCOSE, WHOLE BLOOD STAT 10/04/2023 2:00 PM ENGINEHOUSE BRAKEMAN CALCIUM, IONIZED, S/B STAT 10/04/2023 2:00 PM ENGINEHOUSE BRAKEMAN ADULT OXYGEN THERAPY Routine 10/04/2023 12:05 PM ENGINEHOUSE BRAKEMAN CRITICAL CARE Routine 10/04/2023 10:[address] ABDOMEN PELVIS WITH IV CONTRAST RAD - Semiurgent (Fast; most ED patients; some inpatients) 10/04/2023 9:56 AM ENGINEHOUSE BRAKEMAN BACTERIA / JOEL CULTURE, BLOOD STAT 10/04/2023 8:50 AM ENGINEHOUSE BRAKEMAN LACTATE FOR SEPSIS WITH REFLEX, POCT STAT 10/04/2023 8:41 AM ENGINEHOUSE BRAKEMAN HEPATIC FUNCTION PANEL, S STAT 10/04/2023 8:41 AM ENGINEHOUSE BRAKEMAN BACTERIA / JOEL CULTURE, BLOOD STAT 10/04/2023 8:41 AM ENGINEHOUSE BRAKEMAN PROTHROMBIN TIME (PT), P STAT 10/04/2023 8:41 AM ENGINEHOUSE BRAKEMAN CBC WITH DIFFERENTIAL, B STAT 10/04/2023 8:41 AM ENGINEHOUSE BRAKEMAN MAGNESIUM, S STAT 10/04/2023 8:41 AM ENGINEHOUSE BRAKEMAN LIPASE, S/P STAT 10/04/2023 8:41 AM ENGINEHOUSE BRAKEMAN BASIC METABOLIC PANEL, S/P STAT 10/04/2023 8:41 AM ENGINEHOUSE BRAKEMAN ECG STAT 10/04/2023 8:16 AM ENGINEHOUSE BRAKEMAN PREPARE RED BLOOD CELLS Routine 10/02/2023 5:51 AM ENGINEHOUSE BRAKEMAN PREPARE RED BLOOD CELLS STAT 10/02/2023 5:51 AM ENGINEHOUSE BRAKEMAN documented in this encounter Results * Patient Status (10/05/2023 12:01 PM ENGINEHOUSE BRAKEMAN) FIO2 0.30 0.21=AIR 10/05/2023 12: 06 PM ENGINEHOUSE BRAKEMAN STMA Device Vent 10/05/2023 12: 06 PM ENGINEHOUSE BRAKEMAN STMA Blood 10/05/2023 12:0 1 PM ENGINEHOUSE BRAKEMAN 10/05/2023 12:06 PM ENGINEHOUSE BRAKEMAN Zulma Garcia M.D. LAB BLOOD NON ADD-ON [facility] [address] [place] [address], [facility] [address] [place] [address] * Lactate, Whole Blood (10/05/2023 12:01 PM ENGINEHOUSE BRAKEMAN) Pathologist [facility] Lactate, B 1.7 0.5 - 2.2 mmol/L 10/05/2023 12:15 PM ENGINEHOUSE BRAKEMAN STMA Blood (Blood, Arterial) 10/05/2023 12:01 PM ENGINEHOUSE BRAKEMAN 10/05/2023 12:06 PM ENGINEHOUSE BRAKEMAN Zulma Garcia M.D. LAB BLOOD NON ADD-ON [facility] [address] [place] [address], [facility] STMA [facility] [address] [place] [address] * (ABNORMAL) Blood Gas with Coox, Arterial (10/05/2023 12:01 PM ENGINEHOUSE BRAKEMAN) pO2 128(H) 83 - 108 mm Hg 10/05/2023 12:15 PM ENGINEHOUSE BRAKEMAN STMA pCO2 32(L) 35 - 48 mm Hg 10/05/2023 12:15 PM ENGINEHOUSE BRAKEMAN STMA pH 7.36 7.35 - 7.45 pH 10/05/2023 12:15 PM ENGINEHOUSE BRAKEMAN STMA Base Excess -8(L) -2 - 3 mmol/L 10/05/2023 12:15 PM ENGINEHOUSE BRAKEMAN STMA HCO3 18(L) 22 - 26 mmol/L 10/05/2023 12:15 PM ENGINEHOUSE BRAKEMAN STMA Hemoglobin, Venous 10.1(L) 13.2 - 16.6 g/dL 10/05/2023 12:15 PM ENGINEHOUSE BRAKEMAN STMA O2Hb 97.1 94.0 - 98.0 % 10/05/2023 12:15 PM ENGINEHOUSE BRAKEMAN STMA COHb 3.0(H) <3.0 % 10/05/2023 12:15 PM ENGINEHOUSE BRAKEMAN STMA MetHb <1.0 <1.5 % 10/05/2023 12:15 PM ENGINEHOUSE BRAKEMAN STMA CtO2 14.0(L) 18.0 - 21.0 vol % 10/05/2023 12:15 PM ENGINEHOUSE BRAKEMAN STMA Arterial Sample Site Art Line 10/05/2023 12:15 PM ENGINEHOUSE BRAKEMAN STMA Comment:Shai's test not don e. Blood (Blood, Arterial) 10/05/2023 12:01 PM ENGINEHOUSE BRAKEMAN 10/05/2023 12:06 PM ENGINEHOUSE BRAKEMAN Zulma Garcia M.D. LAB BLOOD NON ADD-ON [facility] [address] [place] [address], [facility] [address] [place] [address] * (ABNORMAL) Glucose, POCT (10/05/2023 11:45 AM ENGINEHOUSE BRAKEMAN) Glucose, POCT, B 157(H) 70 - 140 mg/dL 10/05/2023 11:47 AM ENGINEHOUSE BRAKEMAN PCLX Site ARTLINE 10/05/2023 11:47 AM ENGINEHOUSE BRAKEMAN PCLX Last Intake NPO 10/05/2023 11:47 AM ENGINEHOUSE BRAKEMAN PCLX Blood 10/05/2023 11:4 5 AM ENGINEHOUSE BRAKEMAN 10/05/2023 11:48 AM ENGINEHOUSE BRAKEMAN Unknown Provider LAB POCT ORDERABLES- MANUAL [facility] [address] [place] [address], [facility] PCLX [facility] POC [address] [place] [address] * Transfuse Red Blood Cells : (10/05/2023 11:28 AM ENGINEHOUSE BRAKEMAN) Daniel Pace D.O., M.S. BLOOD TRANSFU APRIL ORDERABLES * Transfuse Red Blood Cells : , 2 Units (10/05/2023 11:28 AM ENGINEHOUSE BRAKEMAN) Daniel Pace D.O., M.S. BLOOD TRANSFU APRIL ORDERABLES * Glucose, POCT (10/05/2023 7:21 AM ENGINEHOUSE BRAKEMAN) Glucose, POCT, B 135 70 - 140 mg/dL 10/05/2023 7:24 AM ENGINEHOUSE BRAKEMAN PCLX Site ARTLINE 10/05/2023 7:24 AM ENGINEHOUSE BRAKEMAN PCLX Last Intake NPO 10/05/2023 7:24 AM ENGINEHOUSE BRAKEMAN PCLX Blood 10/05/2023 7:21 AM ENGINEHOUSE BRAKEMAN 10/05/2023 7:24 AM ENGINEHOUSE BRAKEMAN Unknown Provider LAB POCT ORDERABLES- MANUAL POC [facility] [address] [place] [address], [facility] PCLX [facility] POC [address] [place] [address] * Heparin Anti-Xa Assay (10/05/2023 7:21 AM ENGINEHOUSE BRAKEMAN) Heparin Anti-Xa, P 0.24 IU/mL 2023 8:48 AM ENGINEHOUSE BRAKEM[employer] DT Comment: [facility] therapeutic range: ?? 0.30-0.70 IU/mL [...] ([facility]). Blood (Blood, Venous) 10/05/2023 7:21 AM ENGINEHOUSE [employer]RAKEM[employer] 10/05/2023 7:44 AM [employer]SE [employer] Lola Teague APRN.N.P., D.N.P. LAB BLOOD NON ADD-ON [facility] [address] [place] [address], [facility] [place] [address] [place] [address] * Glucose, POCT (10/05/2023 6:15 AM ENGINEHOUSE BRAKEMAN) Pathologist [facility] Glucose, POCT, B 120 70 - 140 mg/dL 10/05/2023 6:17 AM [employer]SE [employer] PCLX Blood 10/05/2023 6:15 AM ENG[employer]HOUSE [employer]RAK[employer]AN 10/05/2023 6:17 AM ENGINEHOUSE [employer]RAKEMAN Unknown Provider LAB POCT ORDERABLES- MANUAL POC [facility] [address] [place] [address], [place] PCLX [facility] [address] [place] [address] * DX Chest Portable 1 View (10/05/2023 6:07 AM ENGINEHOUSE [employer]RAKEMAN) Anatomical Region Laterality Modality Chest, Thoracic RST LOS, Tho racic ARZ LOS, Thoracic FLA LOS N/A Digital Radiography Impressions 10/05/2023 8:40 AM ENGINEHOUSE [employer]RAK[employer] Stable interstitial changes in both lungs since 10/04/2023. This could be due to fibrosis/edema. ET and enteric tubes. Right central line extends superiorly into the neck as previously. Right IJ port catheter tip near the SVC/RA junction. Degenerative changes thoracic spine. Aortic calcification. Narrative 10/05/2023 8:40 AM ENGINEHOUSE BRAKEM[employer] EXAM: ??DX CHEST PORTABLE 1 VIEW Procedure [...] PROCEDURES * Glucose, POCT (10/05/2023 5:02 AM ENGINEHOUSE BRAKEM[employer]) Pathologist [facility] Glucose, POCT, B 116 70 - 140 mg/dL 10/05/2023 5:04 AM ENG[employer]HOUSE [employer]RAK[employer] PCLX Site ARTLINE 10/05/2023 5:04 AM ENGINEHOUSE BRAKEMAN PCLX Blood 10/05/2023 5:02 AM ENG[employer]HOUSE [employer]RAKEM[employer] 10/05/2023 5:04 AM ENG[employer]HOUSE BRAKEMAN Unknown Provider LAB POCT ORDERABLES- MANUAL POC [facility] [address] [place] [address], [facility] PCLX [facility] POC [address] [place] [address] * (ABNORMAL) Calcium, Ionized (10/05/2023 4:28 AM ENGINEHOUSE BRAKEMAN) Pathologist [facility] Calcium, Ionized, B 4.56(L) 4.65 - 5.30 mg/dL 10/05/2023 4:51 AM ENG[employer]HOUSE [employer]RAKEM[employer] STMA Blood 10/05/2023 4:28 AM [employer]HOUSE [employer] 10/05/2023 4:34 AM [employer]HOUSE [employer] Lola Teague APRN.N.P., D.N.P. LAB BLOOD NON ADD-ON Performing Organization Address City/[facility]/ZIP Co de Phone Number [facility] [address] [place] [address], [facility] [address] [place] [address] * Patient Status (10/05/2023 4:28 AM ENGINEHOUSE [employer]RAKEM[employer]) Pathologist [facility] FIO2 0.30 0.21=AIR 10/05/2023 4:3 4 AM ENG[employer]HOUSE [employer]RAK[employer] STMA Device Vent 10/05/2023 4:3 4 AM ENG[employer]HOUSE [employer] STMA Blood 10/05/2023 4:28 AM [employer]SE [employer] 10/05/2023 4:34 AM [employer] Kimberley Sierra APRN, C.N.P., D.N.P. LAB BLOOD NON ADD-ON Performing Organization Address City/[facility] Co de Phone Number [facility] [address] [place] [address], [facility] [address] [place] [address] * (ABNORMAL) Blood Gas with Coox, Arterial (10/05/2023 4:28 AM ENGINEHOUSE [employer]RAKEM[employer]) pO2 139(H) 83 - 108 mm Hg 10/05/2023 4:51 AM ENG[employer]SE [employer]RAK[employer] STMA pCO2 34(L) 35 - 48 mm Hg 10/05/2023 4:51 AM ENG[employer]HOUSE [employer]RAK[employer] ST[facility] pH 7.34(L) 7.35 - 7.45 pH 10/05/2023 4:51 AM ENG[employer]HOUSE [employer] STMA Base Excess -8(L) -2 - 3 mmol/L 10/05/2023 4:51 AM ENGINEHOUSE [employer]RAKEM[employer] ST[facility] HCO3 18(L) 22 - 26 mmol/L 10/05/2023 4:51 AM ENG[employer]HOUSE [employer]RAK[employer] STMA Hemoglobin, Venous 8.8(L) 13.2 - 16.6 g/dL 10/05/2023 4:51 AM ENGINEHOUSE [employer]RAKEM[employer] STMA O2Hb 97.1 94.0 - 98.0 % 10/05/2023 4:51 AM [employer]HOUSE [employer]RAKEM[employer] STMA COHb 2.6 <3.0 % 10/05/2023 4:51 AM [employer]HOUSE [employer] STMA MetHb <1.0 <1.5 % 10/05/2023 4:51 AM ENGINEHOUSE BRAKEM[employer] STMA CtO2 12.4(L) 18.0 - 21.0 vol % 10/05/2023 4:51 AM ENGINEHOUSE [employer]RAKEM[employer] STMA Arterial Sample Site Art Line 10/05/2023 4:51 AM ENG[employer]HOUSE BRAKEM[employer] ST[facility] Comment:Shai's test not don e. Blood (Blood, Arterial) 10/05/2023 4:28 AM [employer]HOUSE [employer]AN 10/05/2023 4:34 AM [employer] Kimberley Sierra APRN, C.N.P., D.N.P. LAB BLOOD NON ADD-ON [facility] [address] [place] [address], [facility] [address] [place] [address] * (ABNORMAL) CBC without Differential (10/05/2023 4:27 AM ENGINEHOUSE [employer]KEM[employer]) Hemoglobin 8.7(L) 13.2 - 16.6 g/dL 10/05/2023 5:31 AM ENGINEHOUSE BRAKEM[employer] DTL Hematocrit 25.8(L) 38.3 - 48.6 % 10/05/2023 5:31 AM ENG[employer]HOUSE [employer]RAKEM[employer] DTL Erythrocytes 2.80(L) 4.35 - 5.65 x10(12)/L 10/05/2023 5:31 AM ENG[employer]HOUSE BRAKEM[employer] DTL MCV 92.1 78.2 - 97.9 fL 10/05/2023 5:31 AM ENGINEHOUSE BRAKEM[employer] DTL RBC Distrib Width 16.7(H) 11.8 - 14.5 % 10/05/2023 5:31 AM ENGINEHOUSE [employer]RAKEM[employer] DTL Platelet Count 165 135 - 317 x10(9)/L 10/05/2023 5:31 AM ENGINEHOUSE BRAKEM[employer] DTL Leukocytes 6.0 3.4 - 9.6 x10(9)/L 10/05/2023 5:31 AM ENG[employer]HOUSE [employer]RAKEM[employer] DTL Blood (Blood, Venous) 10/05/2023 4:27 AM ENGINEHOUSE BRAKEMAN 10/05/2023 5:22 AM ENG[employer]SE [employer] Daniel Pace D.O., M.SJohanna LAB BLOOD ADD -ON Performing Organization Address City/[facility]/ZIP Co de Phone Number [facility] [address] [place] [address], [facility] DTL [facility] [address] [place] [address] * (ABNORMAL) Lactate (10/05/2023 4:27 AM ENGINEHOUSE BRAKEMAN) Pathologist [facility] Lactate, P 3.5(H) 0.5 - 2.2 mmol/L 10/05/2023 4:46 AM ENGINEHOUSE [employer]RAKEM[employer] ST[facility] Blood (Blood, Venous) 10/05/2023 4:27 AM ENG[employer]HOUSE [employer]RAK[employer]AN 10/05/2023 4:34 AM [employer] Kimberley Sierra APRN, C.N.P., D.N.P. LAB BLOOD NON ADD-ON Performing Organization Address City/[facility] Co de Phone Number [facility] [address] [place] [address], [facility] STMA [facility] [address] [place] [address] * Cystatin C with Estimated GFR (10/05/2023 4:27 AM ENGINEHOUSE BRAKEMAN) Pathologist [facility] eGFR by Cystatin C 74 >60 mL/min/BSA 10/05/2023 5:54 AM ENGINEHOUSE [employer]RAKEM[employer] DTL Comment: Estimated GFR calculated using the [...] 0.67 - 1.21 mg/L 10/05/2023 5:54 AM ENGINEHOUSE [employer]RAKEM[employer] DTL Blood (Blood, Venous) 10/05/2023 4:27 AM ENG[employer]HOUSE BRAKEMAN 10/05/2023 5:35 AM [employer]SE [employer] Lola Teague APRN.N.P., D.N.P. LAB BLOOD ADD-ON Performing Organization Address City/[facility] Co de Phone Number [facility] [address] [place] [address] * Phosphorus Inorganic (10/05/2023 4:27 AM ENGINEHOUSE BRAKEMAN) Phosphorus (Inorganic), S 3.8 2.5 - 4.5 mg/dL 10/05/2023 5:54 AM ENG[employer]HOUSE [employer]RAKEM[employer] DTL Blood (Blood, Venous) 10/05/2023 4:27 AM ENG[employer]HOUSE [employer]RAKEMAN 10/05/2023 5:35 AM ENG[employer]HOUSE [employer] Kimberley Sierra APRN, Lola.N.P., D.N.P. LAB BLOOD ADD-ON Performing Organization Address [facility] Co de Phone Number [facility] [address] [place] [address], [facility] [address] [place] [address] * Magnesium (10/05/2023 4:27 AM ENGINEHOUSE BRAKEMAN) Magnesium, S 1.8 1.7 - 2.3 mg/dL 10/05/2023 5:54 AM ENG[employer]HOUSE [employer]RAKEM[employer] DTL Blood (Blood, Venous) 10/05/2023 4:27 AM ENG[employer]HOUSE [employer]RAKEMAN 10/05/2023 5:35 AM [employer]SE [employer] Kimberley Sierra APRN, Lola.N.P., D.N.P. LAB BLOOD ADD-ON Performing Organization Address City/[facility] Co de Phone Number [facility] [address] [place] [address], [facility] DTL [facility] [address] [place] [address] * (ABNORMAL) Basic Metabolic Panel (10/05/2023 4:27 AM ENGINEHOUSE BRAKEMAN) Potassium, S 4.1 3.6 - 5.2 mmol/L 10/05/2023 5:54 AM ENG[employer]HOUSE [employer]KEM[employer] DTL Sodium, S 136 135 - 145 mmol/L 10/05/2023 5:54 AM ENGINEHOUSE BRAKEM[employer] DTL Chloride, S 107 98 - 107 mmol/L 10/05/2023 5:54 AM ENGINEHOUSE [employer]RAKEMAN DTL Bicarbonate, S 16(L) 22 - 29 mmol/L 10/05/2023 5:54 AM ENGINEHOUSE BRAKEMAN DTL Anion Gap 13 7 - 15 10/05/2023 5:54 AM ENGINEHOUSE BRAKEMAN DTL BUN (Blood Urea Nitrogen), S 27(H) 8 - 24 mg/dL 10/05/2023 5:54 AM ENG[employer]HOUSE [employer] DTL Creatinine 0.81 0.74 - 1.35 mg/dL 10/05/2023 5:54 AM ENGINEHOUSE BRAKEM[employer] DTL Estimated GFR (eGFR) >90 >=60 mL/min/BSA 10/05/2023 5:54 AM ENGINEHOUSE [employer]RAK[employer] DTL Comment: Estimated GFR calculated using the 2020 CKD_EPI creatinine equation. Calcium, Total, S 7.2(L) 8.8 - 10.2 mg/dL 10/05/2023 5:54 AM ENGINEHOUSE [employer]RAKEM[employer] DTL Glucose, S 112 70 - 140 mg/dL 10/05/2023 5:54 AM ENG[employer]HOUSE [employer]RAK[employer] DTL Blood (Blood, Venous) 10/05/2023 4:27 AM ENG[employer]HOUSE [employer]RAK[employer]AN 10/05/2023 5:35 AM ENG[employer]HOUSE [employer] Kimberley Sierra APRN C.N.P., D.N.P. LAB BLOOD ADD-ON [facility] [address] [place] [address], [facility] DTL [facility] [address] [place] [address] * Transfuse Red Blood Cells : (10/05/2023 4:21 AM ENGINEHOUSE BRAKEMAN) Daniel Pace D.O., M.S. BLOOD TRANSFU APRIL ORDERABLES * Glucose, POCT (10/05/2023 4:12 AM ENGINEHOUSE BRAKEMAN) Glucose, POCT, B 121 70 - 140 mg/dL 10/05/2023 4:15 AM ENGINEHOUSE BRAKEMAN PCLX Site ARTLINE 10/05/2023 4:15 AM ENG[employer]HOUSE BRAKEM[employer] PCLX Blood 10/05/2023 4:12 AM ENG[employer]HOUSE [employer]RAK[employer] 10/05/2023 4:15 AM ENG[employer]HOUSE B[employer]KEMAN Unknown Provider LAB POCT ORDERABLES- MANUAL POC [facility] [address] [place] [address], [facility] PCLX [facility] POC [address] [place] [address] * Glucose, POCT (10/05/2023 3:15 AM ENGINEHOUSE BRAKEMAN) Glucose, POCT, B 129 70 - 140 mg/dL 10/05/2023 3:16 AM [employer]SE [employer] PCLX Blood 10/05/2023 3:15 AM ENG[employer]HOUSE [employer]RAK[employer] 10/05/2023 3:16 AM ENG[employer]HOUSE [employer] Unknown Provider LAB POCT ORDERABLES- MANUAL Performing Organization Address City/[facility]/ZIP Co de Phone Number POC [facility] [address] [place] [address], [facility] PCLX [facility] POC [address] [place] [address] * Glucose, POCT (10/05/2023 2:10 AM ENGINEHOUSE BRAKEMAN) Glucose, POCT, B 132 70 - 140 mg/dL 10/05/2023 2:12 AM ENG[employer]HOUSE [employer] PCLX Site ARTLINE 10/05/2023 2:12 AM ENG[employer]HOUSE BRAK[employer] PCLX Blood 10/05/2023 2:10 AM ENGINEHOUSE BRAKEMAN 10/05/2023 2:13 AM ENG[employer]HOUSE [employer] Unknown Provider LAB POCT ORDERABLES- MANUAL Performing Organization Address City/[facility]/ZIP Co de Phone Number POC [facility] [address] [place] [address], [facility] PCLX [facility] POC [address] [place] [address] * Patient Status (10/05/2023 12:52 AM ENGINEHOUSE [employer]RAKEMAN) Temperature 37.2 37.0 deg C 10/05/2023 12:52 AM ENGINEHOUSE BRAKEM[employer] STMA FIO2 0.50 0.21=AIR 10/05/2023 12:52 AM ENGINEHOUSE [employer] STMA Blood 10/05/2023 12:5 2 AM ENG[employer]HOUSE [employer]AN 10/05/2023 12:52 AM [employer]SE [employer] Kayla Spencer M.D. LAB BLOOD NON ADD-ON [facility] [address] [place] [address], [facility] [address] [place] [address] * Lactate, B - Intra-op (10/05/2023 12:52 AM ENGINEHOUSE [employer]EM[employer]) Lactate, B 2.0 0.5 - 2.2 mmol/L 10/05/2023 12:59 AM [facility]SE [employer] [facility] Blood (Blood, Venous) 10/05/2023 12:52 AM ENG[employer]HOUSE [employer] 10/05/2023 12:52 AM [employer]SE [employer] Carolee Ferguson M.D. LAB BLOOD NON ADD-ON Performing Organization Address City/[facility]/ZIP Co de Phone Number [facility] [address] [place] [address], [facility] [address] [place] [address] * Glucose, Whole Blood (10/05/2023 12:52 AM ENGINEHOUSE [employer]RAKEMAN) Glucose 117 70 - 140 mg/dL 10/05/2023 12:59 AM ENG[employer]HOUSE B[employer]KEM[employer] [facility] Blood (Blood, Arterial Line) 10/05/2023 12:52 AM ENGINEHOUSE [employer]RAK[employer]AN 10/05/2023 12:52 AM ENG[employer]SE [employer] Carolee E Ferguson M.D. LAB BLOOD ADD-ON Performing Organization Address City/[facility]/ZIP Co de Phone Number [facility] [address] [place], [place] [address] [place] [address] 200 [place] [address] * (ABNORMAL) Potassium, Blood (10/05/2023 12:52 AM ENGINEHOUSE [employer]RAKEMAN) Potassium, B 3.5(L) 3.6 - 5.2 mmol/L 10/05/2023 12:59 AM ENGINEHOUSE [employer]RAKEM[employer] STMA Blood (Blood, Arterial Line) 10/05/2023 12:52 AM ENG[employer]HOUSE [employer]RAKEMAN 10/05/2023 12:52 AM [employer]HOUSE [employer] Carolee Ferguson M.D. LAB BLOOD NON ADD-ON Performing Organization Address City/[facility]/ZIP Co de Phone Number [facility] [address] [place], [place] [address] [place] [address] 200 [place] [address] * Sodium, B (10/05/2023 12:52 AM ENGINEHOUSE [employer]RAKEMAN) Sodium, B 136 135 - 145 mmol/L 10/05/2023 12:59 AM [employer]SE [employer] [facility] Blood (Blood, Arterial Line) 10/05/2023 12:52 AM ENG[employer]HOUSE [employer]RAKEMAN 10/05/2023 12:52 AM [employer]SE [employer] Carolee Ferguson M.D. LAB BLOOD NON ADD-ON [facility] [address] [place] [address], [facility] [address] [place] [address] * Calcium, Ionized (10/05/2023 12:52 AM ENGINEHOUSE [employer]RAKEMAN) Calcium, Ionized, B 4.74 4.65 - 5.30 mg/dL 10/05/2023 12:59 AM ENG[employer]HOUSE [employer] STMA Blood (Blood, Arterial Line) 10/05/2023 12:52 AM ENG[employer]HOUSE BRAKEMAN 10/05/2023 12:52 AM ENG[employer]HOUSE [employer] Carolee Ferguson M.D. LAB BLOOD NON ADD-ON [facility] [address] [place] [place] [id number] [place] [address] STMA [facility] [address] [place] [address] * (ABNORMAL) Blood Gas with Coox, Arterial (10/05/2023 12:52 AM ENGINEHOUSE BRAKEMAN) [facility] Signature pO2 167(H) 83 - 108 mm Hg 10/05/2023 12:59 AM ENGINEHOUSE BRAKEMAN STMA pCO2 30(L) 35 - 48 mm Hg 10/05/2023 12:59 AM ENGINEHOUSE BRAKEM[employer] STMA pH 7.39 7.35 - 7.45 pH 10/05/2023 12:59 AM ENGINEHOUSE BRAKEM[employer] STMA Base Excess -7(L) -2 - 3 mmol/L 10/05/2023 12:59 AM ENG[employer]HOUSE [employer]RAKEM[employer] STMA HCO3 19(L) 22 - 26 mmol/L 10/05/2023 12:59 AM ENG[employer]HOUSE [employer]RAK[employer] STMA Hemoglobin, Venous 8.2(L) 13.2 - 16.6 g/dL 10/05/2023 12:59 AM ENG[employer]HOUSE [employer]RAKEM[employer] STMA O2Hb 97.6 94.0 - 98.0 % 10/05/2023 12:59 AM ENGINEHOUSE [employer]RAKEM[employer] STMA COHb 2.6 <3.0 % 10/05/2023 12:59 AM ENGINEHOUSE BRAKEM[employer] STMA MetHb <1.0 <1.5 % 10/05/2023 12:59 AM ENGINEHOUSE [employer]RAKEM[employer] STMA CtO2 11.6(L) 18.0 - 21.0 vol % 10/05/2023 12:59 AM ENGINEHOUSE [employer]RAKEMAN STMA Blood (Blood, Arterial Line) 10/05/2023 12:52 AM ENGINEHOUSE BRAKEMAN 10/05/2023 12:52 AM ENG[employer]HOUSE [employer] Carolee Ferguson M.D. LAB BLOOD NON ADD-ON [facility] [address] [place] [address], [facility] STMA [facility] [address] [place] [address] * Glucose, POCT (10/05/2023 12:02 AM ENGINEHOUSE BRAKEMAN) Glucose, POCT, B 85 70 - 140 mg/dL 10/05/2023 12:04 AM ENG[employer]HOUSE BRAKEM[employer] PCLX Site ARTLINE 10/05/2023 12:04 AM ENGINEHOUSE BRAKEM[employer] PCLX Blood 10/05/2023 12:0 2 AM ENG[employer]HOUSE BRAKEMAN 10/05/2023 12:04 AM ENG[employer]HOUSE BRAKEMAN Unknown Provider LAB POCT ORDERABLES- MANUAL Performing Organization Address City/[facility]/ZIP Co de Phone Number POC [facility] [address] [place] [address], [facility] PCLX [facility] POC [address] [place] [address] * Glucose, POCT (10/04/2023 11:19 PM ENGINEHOUSE [employer]RAKEMAN) Glucose, POCT, B 117 70 - 140 mg/dL 10/04/2023 11:20 PM ENG[employer]HOUSE BRAKEM[employer] PCLX Site ARTLINE 10/04/2023 11:20 PM ENGINEHOUSE BRAKEMAN PCLX Blood 10/04/2023 11:1 9 PM ENG[employer]HOUSE [employer] 10/04/2023 11:21 PM ENG[employer]HOUSE BRAKEMAN Unknown Provider LAB POCT ORDERABLES- MANUAL Performing Organization Address [facility] Co de Phone Number [facility] [address] [place] [address], [place] PCLX [facility] POC [address] [place] [address] * APTT (Activated Partial Thromboplastin Time) (10/04/2023 10:08 PM ENGINEHOUSE BRAKEMAN) Activated Partial Thrombopl Time, P 27 25 - 37 sec 10/04/2023 10:23 PM ENGINEHOUSE [employer]RAKEM[employer] STMA Blood (Blood, Venous) 10/04/2023 10:08 PM ENGINEHOUSE BRAKEMAN 10/04/2023 10:23 PM ENG[employer]HOUSE BRAKEMAN Kimberley Sierra APRN, C.N.P., D.N.P. LAB BLOOD ADD-ON Performing Organization Address City/[facility]/ZIP Co de Phone Number [facility] [address] [place] [address], [facility] STMA [facility] [address] [place] [address] * Glucose, POCT (10/04/2023 10:07 PM ENGINEHOUSE BRAKEMAN) [facility] Glucose, POCT, B 113 70 - 140 mg/dL 10/04/2023 10:09 PM ENGINEHOUSE BRAKEMAN PCLX Site ARTLINE 10/04/2023 10:09 PM ENGINEHOUSE BRAKEMAN PCLX Blood 10/04/2023 10:0 7 PM ENG[employer]HOUSE BRAKEMAN 10/04/2023 10:10 PM ENGINEHOUSE BRAKEMAN Unknown Provider LAB POCT ORDERABLES- MANUAL POC [facility] [address] [place] [address], [facility] PCLX [facility] [address] [place] [address] * (ABNORMAL) Basic Metabolic Panel (10/04/2023 10:03 PM ENGINEHOUSE BRAKEMAN) [facility] Potassium, P 3.8 3.6 - 5.2 mmol/L 10/04/2023 10:28 PM ENGINEHOUSE BRAKEMAN STMA Sodium, P 135 135 - 145 mmol/L 10/04/2023 10:28 PM ENGINEHOUSE BRAKEM[employer] STMA Chloride, P 105 98 - 107 mmol/L 10/04/2023 10:28 PM ENGINEHOUSE [employer]RAKEM[employer] STMA Bicarbonate, P 17(L) 22 - 29 mmol/L 10/04/2023 10:28 PM ENGINEHOUSE BRAKEMAN STMA Anion Gap, P 13 7 - 15 10/04/2023 10:28 PM ENGINEHOUSE [employer]RAKEMAN STMA BUN (Blood Urea Nitrogen), P 27(H) 8 - 24 mg/dL 10/04/2023 10:28 PM ENGINEHOUSE [employer]RAKEM[employer] STMA Creatinine 0.70(L) 0.74 - 1.35 mg/dL 10/04/2023 10:28 PM ENGINEHOUSE [employer]RAKEMAN STMA Estimated GFR (eGFR) >90 >=60 mL/min/BSA 10/04/2023 10:28 PM ENGINEHOUSE BRAKEMAN STMA Comment: Estimated GFR calculated using the 2020 CKD_EPI creatinine equation. Calcium, Total, P 8.0(L) 8.8 - 10.2 mg/dL 10/04/2023 10:28 PM ENGINEHOUSE [employer]RAKEM[employer] STMA Glucose, P 125 70 - 140 mg/dL 10/04/2023 10:28 PM ENGINEHOUSE [employer]RAKEM[employer] STMA Blood (Blood, Venous) 10/04/2023 10:03 PM ENG[employer]HOUSE [employer]RAKEMAN 10/04/2023 10:13 PM [employer]HOUSE [employer] Daniel Pace D.O., M.S. LAB BLOOD ADD -ON [facility] [address] [place] [address], [facility] STMA [facility] [address] [place] [address] * (ABNORMAL) CBC without Differential (10/04/2023 10:03 PM ENGINEHOUSE BRAKEMAN) [facility] Hemoglobin 8.6(L) 13.2 - 16.6 g/dL 10/04/2023 10:16 PM ENGINEHOUSE BRAKEMAN STMA Hematocrit 26.8(L) 38.3 - 48.6 % 10/04/2023 10:16 PM ENGINEHOUSE BRAKEMAN STMA Erythrocytes 2.90(L) 4.35 - 5.65 x10(12)/L 10/04/2023 10:16 PM ENG[employer]HOUSE BRAKEMAN [facility] MCV 92.4 78.2 - 97.9 fL 10/04/2023 10:16 PM ENG[employer]HOUSE [employer]RAKEM[employer] STMA RBC Distrib Width 16.9(H) 11.8 - 14.5 % 10/04/2023 10:16 PM ENGINEHOUSE BRAKEMAN STMA Platelet Count 166 135 - 317 x10(9)/L 10/04/2023 10:16 PM ENGINEHOUSE BRAKEMAN STMA Leukocytes 3.2(L) 3.4 - 9.6 x10(9)/L 10/04/2023 11:15 PM ENGINEHOUSE BRAKEMAN DH Blood (Blood, Venous) 10/04/2023 10:03 PM ENG[employer]HOUSE BRAKEMAN 10/04/2023 10:13 PM ENG[employer]HOUSE [employer]RAKEM[employer] Daniel Pace D.O., M.S. LAB BLOOD ADD -ON [facility] [address] [place] [address], [facility] STMA [facility] [address] [place] [address] [facility] [address] [place] [address] * (ABNORMAL) Thromboelastograph, Kaolin, Blood (10/04/2023 9:59 PM ENGINEHOUSE BRAKEMAN) R, Kaolin, TEG 6.1 4.0 - 9.0 min 10/04/2023 10:56 PM ENGINEHOUSE BRAKEMAN ST[facility] K, Kaolin, TEG 1.1 1.0 - 1.8 min 10/04/2023 10:56 PM ENGINEHOUSE BRAKEMAN ST[facility] Angle, Kaolin, TEG 74.9 64.0 - 78.1 degrees 10/04/2023 10:56 PM ENGINEHOUSE BRAKEMAN [facility] MA, Kaolin, TEG 74.4(H) 57.1 - 72.6 mm 10/04/2023 10:56 PM ENGINEHOUSE BRAKEMAN STMA Ly30, Kaolin, TEG 0.2 0.0 - 4.8 % 10/04/2023 10:56 PM ENG[employer]HOUSE BRAKEMAN ST[facility] Blood (Blood, Venous) 10/04/2023 9:59 PM ENGINEHOUSE BRAKEMAN 10/04/2023 10:04 PM ENG[employer]HOUSE [employer]RAKEMAN Daniel Pace D.O., M.S. LAB BLOOD NON ADD-ON [facility] [address] [place], [place] [id number] [place] [address] STMA [facility] [address] [place] [address] * Glucose, POCT (10/04/2023 9:03 PM ENGINEHOUSE BRAKEMAN) [facility] Glucose, POCT, B 126 70 - 140 mg/dL 10/04/2023 10:09 PM ENGINEHOUSE BRAKEMAN PCLX Site ARTLINE 10/04/2023 10:09 PM ENGINEHOUSE BRAKEMAN PCLX Blood 10/04/2023 9:03 PM ENGINEHOUSE BRAKEMAN 10/04/2023 10:09 PM ENGINEHOUSE BRAKEMAN Unknown Provider LAB POCT ORDERABLES- MANUAL POC [facility] [address] PCLX [facility] POC [address] [place] [address] * US Upper Extremity Veins Right (10/04/2023 8:40 PM ENGINEHOUSE BRAKEMAN) Anatomical Region Laterality Modality Upper Extremity, Ultrasound RST LOS, Ultrasound ARZ LOS, Ultrasound FLA LOS Right Ultrasound Impressions 10/05/2023 6:33 AM ENGINEHOUSE BRAKEMAN 1. Right axillary venous catheter with nonocclusive thrombin cast. 2. 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 3. The right internal jugular, innominate, and subclavian veins were obscured by overlying bandages. Findings were discussed [place] [id number] at 10:00PM on 10/04/2023. Narrative 10/05/2023 6:33 AM ENGINEHOUSE BRAKEMAN EXAM: US UPPER EXTREMITY VEINS RIGHT Exam [...] and management can be found on the [employer] site. Link [email or web address] Procedure Note Martinez Flowers M.D. - 10/05/2023 [...] management can be found on theAskMayoEx[employer] site. [email or web address] 1725 IMPRESSION: 1. Right axillary venous catheter with nonocclusive thrombin cast. 2. 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 3. The right internal jugular, innominate, and subclavian veins wereobscured by overlying bandages. Findings were discussed with Kimberley Sierra [place]N [place] [id number] at 10:00PMon 10/04/2023. Kimberley Sierra APRN, C.N.P., D.N.P. IMG US PROCEDURES * (ABNORMAL) Glucose, POCT (10/04/2023 8:15 PM ENGINEHOUSE BRAKEMAN) [facility] Glucose, POCT, B 141(H) 70 - 140 mg/dL 10/04/2023 8:17 PM ENGINEHOUSE BRAKEMAN PCLX Site ARTLINE 10/04/2023 8:17 PM ENGINEHOUSE BRAKEMAN PCLX Blood 10/04/2023 8:15 PM ENGINEHOUSE BRAKEMAN 10/04/2023 8:18 PM ENGINEHOUSE BRAKEMAN Unknown Provider LAB POCT ORDERABLES- MANUAL POC [facility] [address] [place] [address], [facility] PCLX [facility] POC [address] [place] [address] * Patient Status (10/04/2023 7:54 PM ENGINEHOUSE BRAKEMAN) [facility] FIO2 0.30 0.21=AIR 10/04/2023 7:59 PM ENGINEHOUSE BRAKEMAN STMA Device Vent 10/04/2023 7:59 PM ENGINEHOUSE BRAKEMAN STMA Spont. breaths/min 19 10/04/2023 7:59 PM ENGINEHOUSE BRAKEM[employer] STMA Blood 10/04/2023 7:54 PM ENGINEHOUSE BRAKEMAN 10/04/2023 7:59 PM ENGINEHOUSE [employer]RAKEMAN Kimberley Sierra APRN, C.N.P., D.N.P. LAB BLOOD NON ADD-ON [facility] [address] [place] [address], [facility] STMA [facility] [address] [place] [address] * (ABNORMAL) Blood Gas with Coox, Arterial (10/04/2023 7:54 PM ENGINEHOUSE BRAKEMAN) pO2 91 83 - 108 mm Hg 10/04/2023 8:05 PM ENGINEHOUSE BRAKEMAN STMA pCO2 36 35 - 48 mm Hg 10/04/2023 8:05 PM ENGINEHOUSE BRAKEMAN STMA pH 7.34(L) 7.35 - 7.45 pH 10/04/2023 8:05 PM ENGINEHOUSE BRAKEMAN STMA Base Excess -6(L) -2 - 3 mmol/L 10/04/2023 8:05 PM ENGINEHOUSE BRAKEMAN STMA HCO3 19(L) 22 - 26 mmol/L 10/04/2023 8:05 PM ENGINEHOUSE [employer]RAKEM[employer] STMA Hemoglobin, Venous 9.5(L) 13.2 - 16.6 g/dL 10/04/2023 8:05 PM ENGINEHOUSE BRAKEMAN STMA O2Hb 95.9 94.0 - 98.0 % 10/04/2023 8:05 PM ENGINEHOUSE BRAKEM[employer] STMA COHb 2.1 <3.0 % 10/04/2023 8:05 PM ENGINEHOUSE BRAKEMAN STMA MetHb <1.0 <1.5 % 10/04/2023 8:05 PM ENGINEHOUSE BRAKEMAN [facility] CtO2 13.0(L) 18.0 - 21.0 vol % 10/04/2023 8:05 PM ENGINEHOUSE BRAKEMAN STMA Arterial Sample Site Art Line 10/04/2023 8:05 PM ENGINEHOUSE BRAKEMAN STMA Comment:Shai's test not don e. Blood (Blood, Arterial) 10/04/2023 7:54 PM ENGINEHOUSE BRAKEMAN 10/04/2023 7:59 PM ENGINEHOUSE BRAKEMAN Kimberley Sierra APRN, C.N.P., D.N.P. LAB BLOOD NON ADD-ON Performing Organization Address [facility] Co de Phone Number [facility] [address] [place] [address] * (ABNORMAL) Lactate (10/04/2023 7:53 PM ENGINEHOUSE BRAKEMAN) Pathologist [facility] Lactate, P 4.0(H) 0.5 - 2.2 mmol/L 10/04/2023 8:12 PM ENGINEHOUSE BRAKEMAN STMA Blood (Blood, Venous) 10/04/2023 7:53 PM ENGINEHOUSE BRAKEMAN 10/04/2023 7:59 PM ENGINEHOUSE BRAKEMAN Kimberley Sierra APRN, C.N.P., D.N.P. LAB BLOOD NON ADD-ON Performing Organization Address [facility] [place] [address] * (ABNORMAL) Urinalysis, Dipstick (10/04/2023 6:39 PM ENGINEHOUSE BRAKEMAN) Pathologist [facility] Glucose, U 100(A) Negative mg/dL 10/04/2023 7:46 PM ENG[facility]HOUSE BRAKEM[facility] Comment: ----ADDITIONAL INFORMATION---- This test has been modified from the spot sprayer's instructions. Its performance characteristics were determined by [facility] in a manner consistent with CLIA requirements. This test has not been cleared or approved by the U.S. Food and Drug Administration. Ketone, U Negative Negative mg/dL 10/04/2023 7:46 PM ENGINEHOUSE BRAKEMAN ST[facility] Comment: ----ADDITIONAL INFORMATION---- This test has been modified from the spot sprayer's instructions. Its performance characteristics were determined by [facility] in a manner consistent with CLIA requirements. This test has not been cleared or approved by the U.S. Food and Drug Administration. pH, U 5.0 5.0 - 8.0 pH 10/04/2023 7:46 PM ENGINEHOUSE BRAKEMAN STMA Comment: ----ADDITIONAL INFORMATION---- This test has been modified from the spot sprayer's instructions. Its performance characteristics were determined by [facility] in a manner consistent with CLIA requirements. This test has not been cleared or approved by the U.S. Food and Drug Administration. Protein, U 100(A) Negative mg/dL 10/04/2023 7:46 PM ENGINEHOUSE BRAKEMAN STMA Comment: ----ADDITIONAL INFORMATION---- This test has been modified from the spot sprayer's instructions. Its performance characteristics were determined by [facility] in a manner consistent with CLIA requirements. This test has not been cleared or approved by the U.S. Food and Drug Administration. Blood, U Negative Negative 10/04/2023 7:46 PM ENGINEHOUSE BRAKEMAN STMA Comment: ----ADDITIONAL INFORMATION---- This test has been modified from the spot sprayer's instructions. Its performance characteristics were determined by [facility] in a manner consistent with CLIA requirements. This test has not been cleared or approved by the U.S. Food and Drug Administration. Nitrite, U Negative Negative 10/04/2023 7:46 PM ENGINEHOUSE BRAKEMAN STMA Comment: ----ADDITIONAL INFORMATION---- This test has been modified from the spot sprayer's instructions. Its performance characteristics were determined by [facility] in a manner consistent with CLIA requirements. This test has not been cleared or approved by the U.S. Food and Drug Administration. Leukocyte, U Negative Negative 10/04/2023 7:46 PM ENGINEHOUSE BRAKEMAN STMA Comment: ----ADDITIONAL INFORMATION---- This test has been modified from the spot sprayer's instructions. Its performance characteristics were determined by [facility] in a manner consistent with CLIA requirements. This test has not been cleared or approved by the U.S. Food and Drug Administration. Urine (Urine, Midstream) 10/04/2023 6:39 PM ENGINEHOUSE BRAKEMAN 10/04/2023 7:43 PM ENG[employer]HOUSE BRAKEMAN Juliocesar Hernandez APRN C.N.PJohanna LAB URINE KYLEE HARDWICK [facility] [address] [place] [address], [facility] [address] [place] [address] * (ABNORMAL) Glucose, POCT (10/04/2023 6:32 PM ENGINEHOUSE BRAKEMAN) Glucose, POCT, B 226(H) 70 - 140 mg/dL 10/04/2023 6:34 PM ENGINEHOUSE BRAKEMAN PCLX Site Capillary 10/04/2023 6:34 PM ENGINEHOUSE BRAKEMAN PCLX Last Intake NPO 10/04/2023 6:34 PM ENGINEHOUSE BRAKEMAN PCLX Blood 10/04/2023 6:32 PM ENGINEHOUSE BRAKEMAN 10/04/2023 6:35 PM ENGINEHOUSE BRAKEMAN Unknown Provider LAB POCT ORDERABLES- MANUAL POC [facility] [address] [place] [address], [place] PCLX [facility] POC [address] [place] [address] * (ABNORMAL) Troponin T, 2h/6h, 5th Gen (10/04/2023 5:57 PM ENGINEHOUSE BRAKEMAN) Pathologist [facility] Troponin T, 2 hr, 5th gen 76(H) <=15 ng/L 10/04/2023 6:26 PM ENGINEHOUSE BRAKEMAN ST[facility] 2H Delta 2 ng/L 10/04/2023 6:26 PM ENGINEHOUSE BRAKEMAN ST[facility] 2H Delta Interp Not Changing 10/04/2023 6:26 PM ENGINEHOUSE BRAKEMAN ST[facility] Troponin T, 6 hr, 5th gen CANCELED ng/L 10/04/2023 6:26 PM ENGINEHOUSE BRAKEMAN [facility] Comment:Result canceled by t he ancillary. 6H Delta CANCELED ng/L 10/04/2023 6:18 PM ENGINEHOUSE BRAKEMAN [facility] Comment:Result canceled by t he ancillary. 6H Delta % CANCELED % 10/04/2023 6:18 PM ENGINEHOUSE BRAKEMAN [facility] Comment:Result canceled by t he ancillary. Blood (Blood, Arterial) 10/04/2023 5:57 PM ENGINEHOUSE BRAKEMAN 10/04/2023 6:01 PM ENGINEHOUSE BRAKEMAN Narrative [facility] - 10/04/2023 6:26 PM ENGINEHOUSE BRAKEMAN Specimen Information: Specimen ID: [id number] Specimen Type: Blood Specimen Collection Start Date: 10/04/2023 ??5:57 PM Specimen Received Date: 10/04/2023 ??6:01 PM Specimen ID: [id number] Specimen Type: Blood Specimen Collection Start Date: 10/04/2023 ??6:25 PM Specimen Received Date: 10/04/2023 ??6:25 PM Juliocesar Hernandez APRN, C.N.P. LAB BLOOD TROP ONIN [facility] [address] [place] [address], [facility] [address] [place] [address] * DX Chest Portable 1 View (10/04/2023 5:42 PM ENGINEHOUSE BRAKEMAN) Anatomical Region Laterality Modality Chest, Thoracic RST LOS, Tho racic ARZ LOS, Thoracic FLA LOS N/A Digital Radiography Impressions 10/04/2023 7:45 PM ENGINEHOUSE BRAKEMAN Since earlier today at 3:59 PM, new [...] were discussed with Dr. Pace pager # [phone] at 7:38 on 10/04/2022. Narrative 10/04/2023 7:45 PM ENGINEHOUSE BRAKEMAN EXAM: ??DX CHEST PORTABLE 1 VIEW Procedure [...] were discussed with Dr. Pace pager # [phone] at 7:38 on10/04/2022. Mary New APRN, C.N.P. IMG THOM GNOSTIC IMAGING PROCEDURES * (ABNORMAL) Glucose, POCT (10/04/2023 5:01 PM ENGINEHOUSE BRAKEMAN) Glucose, POCT, B 213(H) 70 - 140 mg/dL 10/04/2023 5:04 PM ENGINEHOUSE BRAKEMAN PCLX Site Capillary 10/04/2023 5:04 PM ENGINEHOUSE BRAKEMAN PCLX Last Intake 1-2 hours 10/04/2023 5:04 PM ENGINEHOUSE BRAKEMAN PCLX Blood 10/04/2023 5:01 PM ENGINEHOUSE BRAKEMAN 10/04/2023 5:04 PM ENGINEHOUSE BRAKEMAN Unknown Provider LAB POCT ORDERABLES- MANUAL POC [facility] [address] [place] [address], [facility] PCLX [facility] POC [address] [place] [address] * FL INS NON-JEFRY CVC >5YR, LDA ANE CENTRAL LINE TRIPLE LUMEN, MC ANE CENTRAL LINE GENERIC PERFORMABLE (10/04/2023 4:25 PM ENGINEHOUSE BRAKEMAN) Narrative Jeaneth Gonzalez M.D. - 10/04/2023 4:25 PM ENGINEHOUSE BRAKEMAN Mary New APRN, C.N.P. ? 10/04/2023 ??4:30 [...] Patient tolerance of procedure: successful Mary New APRN C.N.PJohanna PROCEDU RE/MINOR SURGICAL ORDERABLES * ECG 12 Lead (10/04/2023 4:17 PM ENGINEHOUSE BRAKEMAN) Ventricular Rate ECG/Min 109 BPM MUSE FL Interval 162 ms MUSE QRSD Interval 94 ms MUSE QT Interval 344 ms MUSE QTC Interval 463 ms MUSE P [place] 52 degrees MUSE R [place] 76 degrees MUSE T Wave [place] 63 degrees MUSE 10/04/2023 4:17 PM ENGINEHOUSE BRAKEMAN 10/04/2023 4:20 PM ENGINEHOUSE BRAKEMAN Impressions MUSE - 10/04/2023 4:20 PM ENGINEHOUSE BRAKEMAN Sinus tachycardia Nonspecific ST and T wave [...] by Marito Fairbanks III, CRAT Eliecer Ortega APRNNJohannaPJohanna ECG ORDERABLES Performing Organization Address City/[facility]/ZIP Co de Phone Number MUSE NA * Patient Status (10/04/2023 3:49 PM ENGINEHOUSE BRAKEMAN) FIO2 0.50 0.21=AIR 10/04/2023 3:54 PM ENGINEHOUSE BRAKEMAN [facility] Device Vent 10/04/2023 3:54 PM ENGINEHOUSE BRAKEMAN [facility] Spont. breaths/min 18 10/04/2023 3:54 PM ENGINEHOUSE BRAKEMAN [facility] Blood 10/04/2023 3:49 PM ENGINEHOUSE BRAKEMAN 10/04/2023 3:54 PM ENGINEHOUSE BRAKEMAN Juliocesar Hernandez APRN, C.N.P. LAB BLOOD NON ADD-ON Performing Organization Address [facility] Co de Phone Number [facility] [address] [place] [address], [facility] [address] [place] [id number] * (ABNORMAL) Troponin T, Baseline, 5th gen (10/04/2023 3:49 PM ENGINEHOUSE BRAKEMAN) Pathologist [facility] Troponin T, Baseline, 5th gen 74(H) <=15 ng/L 10/04/2023 4:17 PM ENGINEHOUSE BRAKEMAN ST[facility] Blood (Blood, Arterial) 10/04/2023 3:49 PM ENGINEHOUSE BRAKEMAN 10/04/2023 3:54 PM ENGINEHOUSE BRAKEMAN Juliocesar Hernandez APRN, C.N.P. LAB BLOOD TROP ONIN Performing Organization Address [facility] Co de Phone Number [facility] [address] [place] [address], [facility] [address] [place] [address] * (ABNORMAL) Prothrombin Time (PT) (10/04/2023 3:49 PM ENGINEHOUSE BRAKEMAN) Prothrombin Time, P 14.6(H) 9.4 - 12.5 sec 10/04/2023 4:27 PM ENGINEHOUSE BRAKEMAN [facility] INR 1.3 0.9 - 1.1 10/04/2023 4:27 PM ENGINEHOUSE BRAKEMAN [facility] Comment: ----ADDITIONAL INFORMATION---- Standard intensity warfarin therapeutic range: 2.0 to 3.0 ?? High intensity warfarin therapeutic range: 2.5 to 3.5 Blood (Blood, Venous) 10/04/2023 3:49 PM ENGINEHOUSE BRAKEMAN 10/04/2023 3:54 PM ENGINEHOUSE BRAKEMAN Juliocesar Hernandez APRN, C.N.P. LAB BLOOD ADD- ON Performing Organization Address City/[facility]/ZIP Co de Phone Number [id number] [place] [address] [address] [place] [address] * Phosphorus Inorganic (10/04/2023 3:49 PM ENGINEHOUSE BRAKEMAN) Pathologist [facility] Phosphorus (Inorganic), S 4.4 2.5 - 4.5 mg/dL 10/04/2023 5:04 PM ENGINEHOUSE BRAKEMAN DTL Blood (Blood, Venous) 10/04/2023 3:49 PM ENGINEHOUSE BRAKEMAN 10/04/2023 4:29 PM ENGINEHOUSE BRAKEMAN Juliocesar Hernandez APRN, C.N.P. LAB BLOOD ADD- ON [facility] [address] [place] [address], [address] [address] * (ABNORMAL) Magnesium (10/04/2023 3:49 PM ENGINEHOUSE BRAKEMAN) Magnesium, S 1.5(L) 1.7 - 2.3 mg/dL 10/04/2023 5:04 PM ENGINEHOUSE BRAKEMAN DTL Blood (Blood, Venous) 10/04/2023 3:49 PM ENGINEHOUSE BRAKEMAN 10/04/2023 4:29 PM ENGINEHOUSE BRAKEMAN Lola Ortega APRN.N.P. LAB BLOOD ADD- ON Performing Organization Address City/[facility]/ZIP Co de Phone Number [facility] [address] [place] [address], [facility] DTL [facility] [address] [place] [address] * (ABNORMAL) Lactate (10/04/2023 3:49 PM ENGINEHOUSE BRAKEMAN) Lactate, P 3.8(H) 0.5 - 2.2 mmol/L 10/04/2023 4:24 PM ENGINEHOUSE BRAKEMAN ST[facility] Blood (Blood, Venous) 10/04/2023 3:49 PM ENGINEHOUSE BRAKEMAN 10/04/2023 3:54 PM ENGINEHOUSE BRAKEMAN Juliocesar Hernandez APRN, C.N.P. LAB BLOOD NON ADD-ON Performing Organization Address [facility] Co de Phone Number [facility] [address] [place] [address], [facility] STMA [facility] [address] [place] [address] * (ABNORMAL) Hepatic Function Panel (10/04/2023 3:49 PM ENGINEHOUSE BRAKEMAN) Bilirubin, Total, S 0.9 0.0 - 1.2 mg/dL 10/04/2023 5:04 PM ENGINEHOUSE BRAKEMAN DTL Bilirubin, Direct, S 0.7(H) 0.0 - 0.3 mg/dL 10/04/2023 5:04 PM ENGINEHOUSE BRAKEMAN DTL Aspartate Aminotransferase (AST), S 27 8 - 48 U/L 10/04/2023 5:04 PM ENGINEHOUSE BRAKEMAN DTL Alanine Aminotransferase (ALT), S 16 7 - 55 U/L 10/04/2023 5:04 PM ENGINEHOUSE BRAKEMAN DTL Alkaline Phosphatase, S 114 40 - 129 U/L 10/04/2023 5:31 PM ENGINEHOUSE BRAKEMAN DTL Albumin, S 2.6(L) 3.5 - 5.0 g/dL 10/04/2023 5:04 PM ENGINEHOUSE BRAKEMAN DTL Protein, Total, S 4.2(L) 6.3 - 7.9 g/dL 10/04/2023 5:04 PM ENGINEHOUSE BRAKEMAN DTL Blood (Blood, Venous) 10/04/2023 3:49 PM ENGINEHOUSE BRAKEMAN 10/04/2023 4:29 PM ENGINEHOUSE BRAKEMAN Juliocesar Hernandez APRN C.N.P. LAB BLOOD ADD- ON [facility] [address] [place] [address], [facility] DTL [facility] [address] [place] [address] * (ABNORMAL) CBC without Differential (10/04/2023 3:49 PM ENGINEHOUSE BRAKEMAN) Pathologist [facility] Hemoglobin 9.9(L) 13.2 - 16.6 g/dL 10/04/2023 4:00 PM ENGINEHOUSE BRAKEMAN ST[facility] Hematocrit 30.8(L) 38.3 - 48.6 % 10/04/2023 4:00 PM ENGINEHOUSE BRAKEMAN ST[facility] Erythrocytes 3.35(L) 4.35 - 5.65 x10(12)/L 10/04/2023 4:00 PM ENGINEHOUSE BRAKEMAN ST[facility] MCV 91.9 78.2 - 97.9 fL 10/04/2023 4:00 PM ENGINEHOUSE BRAKEMAN ST[facility] RBC Distrib Width 16.1(H) 11.8 - 14.5 % 10/04/2023 4:00 PM ENGINEHOUSE BRAKEMAN [facility] Platelet Count 193 135 - 317 x10(9)/L 10/04/2023 4:00 PM ENGINEHOUSE BRAKEMAN [facility] Leukocytes 2.8(L) 3.4 - 9.6 x10(9)/L 10/04/2023 4:34 PM ENGINEHOUSE BRAKEMAN DH Blood (Blood, Venous) 10/04/2023 3:49 PM ENGINEHOUSE BRAKEMAN 10/04/2023 3:54 PM ENGINEHOUSE BRAKEMAN Juliocesar Hernandez APRN C.N.P. LAB BLOOD ADD- ON Performing Organization Address City/[facility]/ZIP Co de Phone Number [facility] [address] [place] [address], [facility] STMA [facility] [address] [place] [address] [facility] [address] [place] [address] * (ABNORMAL) Calcium, Ionized (10/04/2023 3:49 PM ENGINEHOUSE BRAKEMAN) Pathologist [facility] Calcium, Ionized, B 5.56(H) 4.65 - 5.30 mg/dL 10/04/2023 3:59 PM ENGINEHOUSE BRAKEMAN ST[facility] Blood (Blood, Venous) 10/04/2023 3:49 PM ENGINEHOUSE BRAKEMAN 10/04/2023 3:54 PM ENGINEHOUSE BRAKEMAN Juliocesar Hernandez APRN C.N.P. LAB BLOOD NON ADD-ON [facility] [address] [place] [address], [facility] [address] [place] [address] * (ABNORMAL) Basic Metabolic Panel (10/04/2023 3:49 PM ENGINEHOUSE BRAKEMAN) Pathologist [facility] Potassium, P 3.8 3.6 - 5.2 mmol/L 10/04/2023 4:29 PM ENGINEHOUSE BRAKEMAN ST[facility] Sodium, P 137 135 - 145 mmol/L 10/04/2023 4:29 PM ENGINEHOUSE BRAKEMAN [facility] Chloride, P 105 98 - 107 mmol/L 10/04/2023 4:29 PM ENGINEHOUSE BRAKEMAN ST[facility] Bicarbonate, P 19(L) 22 - 29 mmol/L 10/04/2023 4:29 PM ENGINEHOUSE BRAKEMAN ST[facility] Anion Gap, P 13 7 - 15 10/04/2023 4:29 PM ENGINEHOUSE BRAKEMAN ST[facility] BUN (Blood Urea Nitrogen), P 29(H) 8 - 24 mg/dL 10/04/2023 4:29 PM ENGINEHOUSE BRAKEMAN ST[facility] Creatinine 0.66(L) 0.74 - 1.35 mg/dL 10/04/2023 4:29 PM ENGINEHOUSE BRAKEMAN ST[facility] Estimated GFR (eGFR) >90 >=60 mL/min/BSA 10/04/2023 4:29 PM ENGINEHOUSE BRAKEMAN STMA Comment: Estimated GFR calculated using the 2020 CKD_EPI creatinine equation. Calcium, Total, P 9.2 8.8 - 10.2 mg/dL 10/04/2023 4:29 PM ENGINEHOUSE BRAKEMAN ST[facility] Glucose, P 240(H) 70 - 140 mg/dL 10/04/2023 4:29 PM ENGINEHOUSE BRAKEMAN ST[facility] Blood (Blood, Venous) 10/04/2023 3:49 PM ENGINEHOUSE BRAKEMAN 10/04/2023 3:54 PM ENGINEHOUSE BRAKEMAN Juliocesar Hernandez APRN, C.N.P. LAB BLOOD ADD- ON [facility] [address] [place] [address], [facility] STMA [facility] [address] [place] [address] * (ABNORMAL) Blood Gas with Coox, Arterial (10/04/2023 3:49 PM ENGINEHOUSE BRAKEMAN) pO2 123(H) 83 - 108 mm Hg 10/04/2023 3:59 PM ENGINEHOUSE BRAKEMAN STMA pCO2 39 35 - 48 mm Hg 10/04/2023 3:59 PM ENGINEHOUSE BRAKEMAN [facility] pH 7.29(L) 7.35 - 7.45 pH 10/04/2023 3:59 PM ENGINEHOUSE BRAKEMAN [facility] Base Excess -7(L) -2 - 3 mmol/L 10/04/2023 3:59 PM ENGINEHOUSE BRAKEMAN [facility] HCO3 18(L) 22 - 26 mmol/L 10/04/2023 3:59 PM ENGINEHOUSE BRAKEMAN STMA Hemoglobin, Venous 10.5(L) 13.2 - 16.6 g/dL 10/04/2023 3:59 PM ENGINEHOUSE BRAKEMAN ST[facility] O2Hb 94.9 94.0 - 98.0 % 10/04/2023 3:59 PM ENGINEHOUSE BRAKEMAN ST[facility] COHb 1.1 <3.0 % 10/04/2023 3:59 PM ENGINEHOUSE BRAKEMAN ST[facility] MetHb 2.1(H) <1.5 % 10/04/2023 3:59 PM ENGINEHOUSE BRAKEMAN [facility] CtO2 14.3(L) 18.0 - 21.0 vol % 10/04/2023 3:59 PM ENGINEHOUSE BRAKEMAN [facility] Arterial Sample Site Art Line 10/04/2023 3:59 PM ENGINEHOUSE BRAKEMAN STMA Comment:Shai's test not don e. Blood (Blood, Arterial) 10/04/2023 3:49 PM ENGINEHOUSE BRAKEMAN 10/04/2023 3:54 PM ENGINEHOUSE BRAKEMAN Juliocesar Hernandez APRN, C.N.P. LAB BLOOD NON ADD-ON [facility] [address] [place] [address], [place] [facility] [address] [place] [address] * DX Chest Portable 1 View (10/04/2023 3:44 PM ENGINEHOUSE BRAKEMAN) Anatomical Region Laterality Modality Chest, Thoracic RST LOS, Tho racic ARZ LOS, Thoracic FLA LOS N/A Digital Radiography Impressions 10/04/2023 4:30 PM ENGINEHOUSE BRAKEMAN Since 04/23/2023, interval placement of a right [...] percutaneous gastrojejunostomy tube. Narrative 10/04/2023 4:30 PM ENGINEHOUSE BRAKEMAN EXAM: ??DX CHEST PORTABLE 1 VIEW Procedure [...] in the neck. Partially visualized percutaneousgastrojejunostomy tube. Eliecer Ortega APRNNGovind [facility] PROCEDURES * (ABNORMAL) Thromboelastograph, Kaolin, Blood (10/04/2023 2:58 PM ENGINEHOUSE BRAKEMAN) R, Kaolin, TEG 6.2 4.0 - 9.0 min 10/04/2023 4:12 PM ENGINEHOUSE BRAKEMAN [facility] K, Kaolin, TEG 1.2 1.0 - 1.8 min 10/04/2023 4:12 PM ENGINEHOUSE BRAKEMAN [facility] Angle, Kaolin, TEG 74.0 64.0 - 78.1 degrees 10/04/2023 4:12 PM ENGINEHOUSE BRAKEMAN [facility] MA, Kaolin, TEG 74.5(H) 57.1 - 72.6 mm 10/04/2023 4:12 PM ENGINEHOUSE BRAKEMAN STMA Ly30, Kaolin, TEG 0.0 0.0 - 4.8 % 10/04/2023 4:12 PM ENGINEHOUSE BRAKEMAN [facility] Blood (Blood, Arterial Line) 10/04/2023 2:58 PM ENGINEHOUSE BRAKEMAN 10/04/2023 2:58 PM ENGINEHOUSE BRAKEMAN Ronald De Paz M.D. LAB BLOOD NON ADD-O N [facility] [address] [place] [address], [facility] [address] [place] [address] * Transfuse Red Blood Cells : (10/04/2023 2:34 PM ENGINEHOUSE BRAKEMAN) Ronald De Paz M.D. BLOOD TRANSFUSION O RDERABLES * (ABNORMAL) Glucose, Whole Blood (10/04/2023 2:00 PM ENGINEHOUSE BRAKEMAN) Glucose 237(H) 70 - 140 mg/dL 10/04/2023 2:05 PM ENGINEHOUSE BRAKEMAN STMA Blood (Blood, Arterial Line) 10/04/2023 2:00 PM ENGINEHOUSE BRAKEMAN 10/04/2023 2:00 PM ENGINEHOUSE BRAKEMAN Ronald De Paz M.D. LAB BLOOD ADD-ON Performing Organization Address City/[facility]/ZIP Co de Phone Number [facility] [address] [place] [address], [facility] [address] [place] [address] * (ABNORMAL) Potassium, Blood (10/04/2023 2:00 PM ENGINEHOUSE BRAKEMAN) Potassium, B 3.3(L) 3.6 - 5.2 mmol/L 10/04/2023 2:05 PM ENGINEHOUSE BRAKEMAN STMA Blood (Blood, Arterial Line) 10/04/2023 2:00 PM ENGINEHOUSE BRAKEMAN 10/04/2023 2:00 PM ENGINEHOUSE BRAKEMAN Ronald De Paz M.D. LAB BLOOD NON ADD-O N Performing Organization Address City/[facility]/ZIP Co de Phone Number [facility] [address] [place] [address], [facility] [address] [place] [address] * Sodium, B (10/04/2023 2:00 PM ENGINEHOUSE BRAKEMAN) Sodium, B 139 135 - 145 mmol/L 10/04/2023 2:05 PM ENGINEHOUSE BRAKEMAN STMA Blood (Blood, Arterial Line) 10/04/2023 2:00 PM ENGINEHOUSE BRAKEMAN 10/04/2023 2:00 PM ENGINEHOUSE BRAKEMAN Ronald De Paz M.D. LAB BLOOD NON ADD-O N [facility] [address] [place] [address], [facility] [address] [place] [address] * (ABNORMAL) Calcium, Ionized (10/04/2023 2:00 PM ENGINEHOUSE BRAKEMAN) Calcium, Ionized, B 4.58(L) 4.65 - 5.30 mg/dL 10/04/2023 2:05 PM ENGINEHOUSE BRAKEMAN STMA Blood (Blood, Arterial Line) 10/04/2023 2:00 PM ENGINEHOUSE BRAKEMAN 10/04/2023 2:00 PM ENGINEHOUSE BRAKEMAN Ronald De Paz M.D. LAB BLOOD NON ADD-O N [facility] [address] [place] [address], [facility] STMA [facility] [address] [place] [address] * (ABNORMAL) Blood Gas with Coox, Arterial (10/04/2023 2:00 PM ENGINEHOUSE BRAKEMAN) pO2 383(H) 83 - 108 mm Hg 10/04/2023 2:05 PM ENGINEHOUSE BRAKEMAN STMA pCO2 46 35 - 48 mm Hg 10/04/2023 2:05 PM ENGINEHOUSE BRAKEMAN [facility] pH 7.26(L) 7.35 - 7.45 pH 10/04/2023 2:05 PM ENGINEHOUSE BRAKEMAN ST[facility] Base Excess -7(L) -2 - 3 mmol/L 10/04/2023 2:05 PM ENGINEHOUSE BRAKEMAN [facility] HCO3 20(L) 22 - 26 mmol/L 10/04/2023 2:05 PM ENGINEHOUSE BRAKEMAN STMA Hemoglobin, Venous 8.1(L) 13.2 - 16.6 g/dL 10/04/2023 2:05 PM ENGINEHOUSE BRAKEMAN [facility] O2Hb 99.2(H) 94.0 - 98.0 % 10/04/2023 2:05 PM ENGINEHOUSE BRAKEMAN STMA COHb 1.7 <3.0 % 10/04/2023 2:05 PM ENGINEHOUSE BRAKEMAN STMA MetHb <1.0 <1.5 % 10/04/2023 2:05 PM ENGINEHOUSE BRAKEMAN [facility] CtO2 12.2(L) 18.0 - 21.0 vol % 10/04/2023 2:05 PM ENGINEHOUSE BRAKEMAN ST[facility] Blood (Blood, Arterial Line) 10/04/2023 2:00 PM ENGINEHOUSE BRAKEMAN 10/04/2023 2:00 PM ENG[employer]HOUSE BRAKEMAN Ronald De Paz M.D. LAB BLOOD NON ADD-O N [facility] [address] [place] [address], [facility] [address] [place] [address] * Critical Care (10/04/2023 10:29 AM ENGINEHOUSE BRAKEMAN) Narrative Jayna Albert M.D. - 10/04/2023 10:29 AM ENGINEHOUSE BRAKEMAN Jayna Albert M.D. ? 10/04/2023 11:19 AM [...] Pelvis with IV Contrast (10/04/2023 9:56 AM ENGINEHOUSE BRAKEMAN) Anatomical Region Laterality Modality Abdomen, Pelvis, Abdominal R ST LOS, Abdominal ARZ LOS, Abdominal FLA LOS N/A Computed Tomograp hy, Computed Tomography 10/04/2023 9:47 AM ENGINEHOUSE BRAKEMAN Impressions 10/04/2023 10:29 AM ENGINEHOUSE BRAKEMAN 1. Massive portal venous gas and gas [...] Critical findings discussed with Jayna Albert M.D. ([id number]) at 10:20 AM on 10/04/2023. Narrative 10/04/2023 10:29 AM ENGINEHOUSE BRAKEMAN EXAM: ??CT ABDOMEN PELVIS WITH IV CONTRAST [...] Critical findings discussed with Jayna Albert M.D. ([id number]) at 10:20 Ember 10/04/2023. Jayna Albert M.D. IMG CT PROCEDURES * Magnesium (10/04/2023 8:41 AM ENGINEHOUSE BRAKEMAN) Pathologist [facility] Magnesium, S 1.8 1.7 - 2.3 mg/dL 10/04/2023 9:44 AM ENGINEHOUSE BRAKEMAN DTL Blood (Blood, Venous) 10/04/2023 8:41 AM ENGINEHOUSE BRAKEMAN 10/04/2023 9:27 AM ENGINEHOUSE BRAKEMAN Jayna Albert M.D. LAB BLOOD ADD-ON Performing Organization Address City/[facility]/ZIP Co de Phone Number [facility] [address] [facility] [place] [address] [place] [address] * Lactate for Sepsis with Reflex, POCT (10/04/2023 8:41 AM ENGINEHOUSE [employer]RAKEMAN) Pathologist [facility] Lactate, POCT 1.80 0.50 - 2.20 mmol/L 10/04/2023 9:05 AM [employer]SE [employer] PCLX Blood (Blood, Venous) 10/04/2023 8:41 AM ENGINEHOUSE [employer]RAKEMAN 10/04/2023 8:41 AM ENGINEHOUSE [employer] Jayna Albert M.D. LAB POCT ORDERABL ES - DEVICE Performing Organization Address [facility]/ZIP Co de Phone Number POC [facility] [address] [place] [address], [facility] PCLX [facility] POC [address] [place] [address] * (ABNORMAL) Prothrombin Time (PT) (10/04/2023 8:41 AM ENGINEHOUSE BRAKEMAN) Pathologist [facility] Prothrombin Time, P 12.6(H) 9.4 - 12.5 sec 10/04/2023 9:08 AM ENGINEHOUSE BRAKEM[employer] STMA INR 1.1 0.9 - 1.1 10/04/2023 9:08 AM ENGINEHOUSE [employer]RAK[employer] STMA Comment: ----ADDITIONAL INFORMATION---- Standard intensity warfarin therapeutic range: 2.0 to 3.0 ?? High intensity warfarin therapeutic range: 2.5 to 3.5 Blood (Blood, Venous) 10/04/2023 8:41 AM ENGINEHOUSE [employer] 10/04/2023 8:56 AM [employer]HOUSE [employer] Jayna Albert M.D. LAB BLOOD ADD-ON Performing Organization Address City/[facility]/ZIP Co de Phone Number [facility] [address] [place] [address], [facility] STMA [facility] [address] [place] [address] * (ABNORMAL) Lipase (10/04/2023 8:41 AM ENGINEHOUSE [employer]RAKEMAN) Lipase, S 11(L) 13 - 60 U/L 10/04/2023 9: 44 AM [employer]HOUSE [employer] DTL Blood (Blood, Venous) 10/04/2023 8:41 AM ENG[employer]HOUSE [employer]RAK[employer]AN 10/04/2023 9:27 AM [employer] Jayna Albert M.D. LAB BLOOD ADD-ON Performing Organization Address [facility] Co de Phone Number [facility] [address] [place] [address], [facility] [facility] [address] [place] [address] * (ABNORMAL) Hepatic Function Panel (10/04/2023 8:41 AM ENGINEHOUSE BRAKEMAN) Bilirubin, Total, S 0.4 0.0 - 1.2 mg/dL 10/04/2023 9:44 AM ENGINEHOUSE BRAKEM[facility] DTL Bilirubin, Direct, S 0.2 0.0 - 0.3 mg/dL 10/04/2023 9:44 AM ENGINEHOUSE BRAKEM[facility] DTL Aspartate Aminotransferase (AST), S 24 8 - 48 U/L 10/04/2023 9:44 AM ENGINEHOUSE BRAKEM[facility] DTL Alanine Aminotransferase (ALT), S 20 7 - 55 U/L 10/04/2023 9:44 AM ENGINEHOUSE BRAKEM[facility] DTL Alkaline Phosphatase, S 150(H) 40 - 129 U/L 10/04/2023 9:44 AM ENGINEHOUSE BRAKEM[facility] DTL Albumin, S 3.6 3.5 - 5.0 g/dL 10/04/2023 9:44 AM ENGINEHOUSE [employer]RAKEM[facility] DTL Protein, Total, S 5.3(L) 6.3 - 7.9 g/dL 10/04/2023 9:44 AM ENGINEHOUSE BRAKEM[facility] DTL Blood (Blood, Venous) 10/04/2023 8:41 AM ENGINEHOUSE BRAKEMAN 10/04/2023 9:27 AM ENGINEHOUSE BRAKEM[facility] Jayna Albert M.D. LAB BLOOD ADD-ON [facility] [address] [place] [address], [facility] [address] [place] [address] * (ABNORMAL) Basic Metabolic Panel (10/04/2023 8:41 AM ENGINEHOUSE BRAKEMAN) Potassium, P 4.1 3.6 - 5.2 mmol/L 10/04/2023 9:40 AM [facility]SE [employer] STMA Sodium, P 138 135 - 145 mmol/L 10/04/2023 9:40 AM [employer]INE[employer]SE [employer]RAK[facility] STMA Chloride, P 99 98 - 107 mmol/L 10/04/2023 9:40 AM ENGINEHOUSE [employer]RAK[employer] STMA Bicarbonate, P 22 22 - 29 mmol/L 10/04/2023 9:40 AM ENGINEHOUSE [employer]RAKEM[facility] STMA Anion Gap, P 17(H) 7 - 15 10/04/2023 9:40 AM [employer]SE [employer]RAK[facility] STMA BUN (Blood Urea Nitrogen), P 31(H) 8 - 24 mg/dL 10/04/2023 9:40 AM ENG[employer]HOUSE [employer]K[facility] STMA Creatinine 0.73(L) 0.74 - 1.35 mg/dL 10/04/2023 9:40 AM ENG[employer]HOUSE [employer]RAK[facility] STMA Estimated GFR (eGFR) >90 >=60 mL/min/BSA 10/04/2023 9:40 AM ENGINEHOUSE [employer]RAK[facility] STMA Comment: Estimated GFR calculated using the 2020 CKD_EPI creatinine equation. Calcium, Total, P 8.8 8.8 - 10.2 mg/dL 10/04/2023 9:40 AM ENGINEHOUSE [employer]RAK[facility] STMA Glucose, P 200(H) 70 - 140 mg/dL 10/04/2023 9:40 AM ENGINEHOUSE [employer]RAK[employer] STMA Blood (Blood, Venous) 10/04/2023 8:41 AM ENGINEHOUSE BRAKEMAN 10/04/2023 8:56 AM ENGINEHOUSE BRAKEM[facility] Jayna Albert M.D. LAB BLOOD ADD-ON [facility] [address] [place] [address], [facility] STMA [facility] [address] [place] [address] * (ABNORMAL) CBC with Differential, Blood (10/04/2023 8:41 AM ENGINEHOUSE BRAKEMAN) Hemoglobin 8.9(L) 13.2 - 16.6 g/dL 10/04/2023 8:59 AM ENGINEHOUSE [employer]RAKEM[facility] STMA Hematocrit 27.9(L) 38.3 - 48.6 % 10/04/2023 8:59 AM ENGINEHOUSE BRAKEM[facility] STMA Erythrocytes 3.02(L) 4.35 - 5.65 x10(12)/L 10/04/2023 8:59 AM ENGINEHOUSE BRAKEM[facility] STMA MCV 92.4 78.2 - 97.9 fL 10/04/2023 8:59 AM ENGINEHOUSE BRAKEM[facility] STMA RBC Distrib Width 16.5(H) 11.8 - 14.5 % 10/04/2023 8:59 AM ENGINEHOUSE [employer]RAK[facility] STMA Platelet Count 152 135 - 317 x10(9)/L 10/04/2023 8:59 AM ENGINEHOUSE BRAK[facility] STMA Leukocytes 2.9(L) 3.4 - 9.6 x10(9)/L 10/04/2023 8:59 AM ENGINEHOUSE BRAKEM[facility] STMA Neutrophils 2.40 1.56 - 6.45 x10(9)/L 10/04/2023 8:59 AM ENGINEHOUSE BRAKEM[employer] [facility] Lymphocytes 0.19(L) 0.95 - 3.07 x10(9)/L 10/04/2023 8:59 AM ENGINEHOUSE BRAKEM[employer] STMA Monocytes 0.27 0.26 - 0.81 x10(9)/L 10/04/2023 8:59 AM ENGINEHOUSE [employer]RAKEM[facility] STMA Eosinophils 0.05 0.03 - 0.48 x10(9)/L 10/04/2023 8:59 AM ENGINEHOUSE BRAKEM[facility] STMA Basophils <0.03 0.01 - 0.08 x10(9)/L 10/04/2023 8:59 AM ENGINEHOUSE BRAKEM[facility] STMA Blood (Blood, Venous) 10/04/2023 8:41 AM ENGINEHOUSE BRAKEMAN 10/04/2023 8:56 AM ENGINEHOUSE BRAKEM[employer] Jayna Albert M.D. LAB BLOOD ADD-ON [facility] [address] [place] [address], [place] STMA [facility] [address] [place] [address] DHPM [facility] [address] [place] [address] * ECG 12 Lead (10/04/2023 8:16 AM ENGINEHOUSE BRAKEMAN) Ventricular Rate ECG/Min 111 BPM MUSE FL Interval 168 ms MUSE QRSD Interval 92 ms MUSE QT Interval 322 ms MUSE QTC Interval 438 ms MUSE P [place] 39 degrees MUSE R [place] 46 degrees MUSE T Wave [place] 64 degrees MUSE 10/04/2023 8:16 AM ENGINEHOUSE BRAKEMAN 10/04/2023 10:13 AM ENGINEHOUSE BRAKEMAN Impressions MUSE - 10/04/2023 8:27 AM ENGINEHOUSE BRAKEMAN Sinus tachycardia with sinus arrhythmia with Varying [...] Revised Report Jayna Albert M.D. 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 Avoid brushing or use of mouthwash for at least 2 hours after application. Discontinue after extubation. Given 10/05/2023 8:38 AM ENGINEHOUSE BRAKEMAN 1 5 mL Given 10/04/2023 8:17 PM ENGINEHOUSE [employer]RAKEMAN 15 mL famotidine injection 20 mg (PEPCID) 20 mg, intravenous, 2 times daily, First dose on Sat10/04/23 at 2100, Drug Monitoring Program: Pharmacist to adjust medication dosing based on indication and drug clearance factors. Given 10/05/2023 8:38 AM ENGINEHOUSE [employer]RAKEMAN 20 mg Given 10/04/2023 8:42 PM ENGINEHOUSE [employer]RAKEMAN 20 mg fentaNYL 10 mcg/mL in NaCl [...] RASS goal. Rate/Dose Verify 10/05/2023 12:00 PM ENGINEHOUSE [employer]RAKEMAN 50 mcg/hr 5 mL/hr Rate/Dose Verify 10/05/2023 11:00 AM ENGINEHOUSE [employer]RAKEMAN 50 mcg/hr 5 mL/h r Rate/Dose Change 10/05/2023 10:19 AM ENGINEHOUSE BRAKEMAN 50 mcg/hr 5 mL/h r fentaNYL bolus from bag 25 mcg (SUBLIMAZE) 25 mcg, intravenous, Every 1 hour PRN, severe pain or score 7-10 of 10, sedation, Starting on Sat10/04/23 at 1601 Bolus from Bag 10/05/2023 6:12 AM ENGINEHOUSE [employer]RAKEMAN 25 mcg Bolus from Bag 10/05/2023 4:26 AM ENGINEHOUSE [employer]RAKEMAN 25 mcg Bolus from Bag 10/05/2023 2:36 AM ENGINEHOUSE BRAKEMAN 25 mcg fluconazole in NaCl 0.9 % (iso osm) IVPB 400 mg (DIFLUCAN) 400 mg, intravenous, at 100 mL/hr, Every 24 hours, First dose on Sat10/04/23 at 1600, Drug Monitoring Program: Pharmacist to adjust medication dosing based on indication and drug clearance factors., Indications: Intra-abdominal infection, healthcare associated New Bag 10/04/2023 4:46 PM ENGINEHOUSE [employer]RAKEMAN 400 mg 100 mL/hr heparin (porcine) 1,000 [...] Heparin resumed Rate/Dose Verify 10/05/2023 12:00 PM ENGINEHOUSE [employer]RAKEMAN 12 Units/kg/hr 9.07 mL/hr Rate/Dose Verify 10/05/2023 11:00 AM ENGINEHOUSE [employer]RAKEMAN 12 Units/kg/hr 9. 07 mL/hr Rate/Dose Verify 10/05/2023 10:00 AM ENGINEHOUSE [employer]RAKEMAN 12 Units/kg/hr 9. 07 mL/hr hydrocortisone sodium succinate (PF) injection 100 mg (Solu-CORTEF) 100 mg, intravenous, Every 8 hours, First dose on Sat10/04/23 at 1900, IV push over 30 seconds per 100 mg (For doses 500 mg or less) Given 10/05/2023 11:39 AM ENGINEHOUSE [employer]RAKEMAN 100 mg Given 10/05/2023 3:21 AM ENGINEHOUSE [employer]RAKEM[employer] 100 mg Given 10/04/2023 7:37 PM ENGINEHOUSE [employer]RAKEM[employer] 100 mg insulin aspart U-100 injection 0-13 [...] writing Insulin orders Given 10/05/2023 11:57 AM ENGINEHOUSE BRAKEMAN 2 Units Right Outer Thigh ketamine 2 mg/mL in NaCl 0.9 % 250 mL infusion (KETALAR) 0.1-0.5 mg/kg/hr ? 75.6 kg Dosing weight (3.78-18.9 mL/hr), intravenous, Continuous, Starting on Sat10/05/23 at 0400, Initiate at 0.1 mg/kg/min; titrate by 0.05 every 15 minutes to goal RASS of -1. Range 0.1-0.5 mg/kg/min 500 mg in 250 mL Rate/Dose Verify 10/05/2023 12:00 PM ENG[employer]HOUSE [employer]KEM[employer] 0.3 mg/kg/hr 11.3 mL/hr Rate/Dose Verify 10/05/2023 11:00 AM ENGINEHOUSE [employer]RAKEM[employer] 0.3 mg/kg/hr 11.3 mL/hr Rate/Dose Verify 10/05/2023 10:00 AM ENGINEHOUSE [employer]RAKEM[employer] 0.3 mg/kg/hr 11.3 mL/hr Lactated Ringer's 250 mL/hr, intravenous, Continuous, Starting on Sat10/05/23 at 1230, For 20 hours New Bag 10/05/2023 12:21 PM [employer]INEHOUSE [employer]RAKEM[employer] 250 mL/hr 250 mL/hr levothyroxine injection 168 mcg 168 mcg, intravenous, Daily, First dose on Sat10/06/23 at 0900, For 2 doses, IV push over 1 minute NaCl 0.9 % bolus 250 mL 250 mL, intravenous, at 500 mL/hr, Administer over 30 Minutes, Every 12 hours, First dose on Sat10/04/23 at 1830, Administer 30 minutes before acyclovir dose New Bag 10/05/2023 5:56 AM [employer]HOUSE [employer]RAKEM[employer] 250 mL 500 mL/hr New Bag 10/04/2023 8:07 PM [employer]HOUSE [employer]RAKEM[employer] 250 mL 500 mL/hr NaCl 0.9 % bolus 250 mL 250 mL, intravenous, at 500 mL/hr, Administer over 30 Minutes, Every 12 hours, First dose on Sat10/04/23 at 2000, Administer after acyclovir dose New Bag 10/05/2023 7:42 AM [employer]INEHOUSE [employer]RAKEM[employer] 250 mL 500 mL/hr New Bag 10/04/2023 8:39 PM [employer]INEHOUSE [employer]RAKEM[employer] 250 mL 500 mL/hr NaCl 0.9% infusion [...] MAP 65-75 New Bag 10/05/2023 12:10 PM [employer]HOUSE [employer] 0.3 mcg/kg/min 79.9 mL/hr Rate/Dose Verify 10/05/2023 12:00 PM [employer]SE [employer] 0.3 mcg/kg/min 79 .9 mL/hr Rate/Dose Verify 10/05/2023 11:00 AM ENGINEHOUSE BRAKEM[facility] 0.3 mcg/kg/min 79 .9 mL/hr ondansetron (PF) [...] MAP 65-75 Rate/Dose Verify 10/05/2023 12:00 PM ENGINEHOUSE [employer]RAKEM[employer] 0.4 mcg/kg/min 22.7 mL/hr Rate/Dose Change 10/05/2023 11:49 AM ENGINEHOUSE [employer]RAKEM[facility] 0.4 mcg/kg/min 22 .7 mL/hr Rate/Dose Verify 10/05/2023 11:00 AM ENGINEHOUSE [employer]RAKEM[employer] 0.5 mcg/kg/min 28 .4 mL/hr piperacillin-tazobactam in dextrose (iso osm) IVPB 3.375 g (ZOSYN) 3.375 g, intravenous, at 100 mL/hr, Administer over 0.5 Hours, Every 6 hours, First dose on Sat10/04/23 at 1600, Drug Monitoring Program: Pharmacist to adjust medication dosing based on indication and drug clearance factors., Indications: Intra-abdominal infection, healthcare associated New Bag 10/05/2023 9:18 AM ENGINEHOUSE [employer] 3.375 g 100 mL/hr New Bag 10/05/2023 3:47 AM ENGINEHOUSE [employer]RAKEM[employer] 3.375 g 100 mL/hr New Bag 10/04/2023 9:44 PM ENG[employer]HOUSE [employer]RAKEM[facility] 3.375 g 100 mL/hr vasopressin 20 unit/100 mL (0.2 unit/mL) in D5W 100 mL infusion (PITRESSIN) 0.04 Units/min (12 mL/hr), intravenous, Continuous, Starting on Sat10/04/23 at 1545, 20 units in 100 mL Rate/Dose Verify 10/05/2023 12:00 PM ENGINEHOUSE [employer]RAKEM[employer] 0.04 Units/min 12 mL/hr Rate/Dose Verify 10/05/2023 11:00 AM ENGINEHOUSE [employer]RAKEM[employer] 0.04 Units/min 12 mL/hr New Bag 10/05/2023 10:40 AM ENGINEHOUSE [employer]RAKEM[employer] 0.04 Units/min 12 mL/hr Inactive Administered Medications - up to 3 most recent administrations Medication Order MAR Action Action Date Dose Rate Site BUPivacaine liposome (PF) 20 mL, BUPivacaine-EPINEPHrine (PF) 30 mL 50 mL injection As needed, Starting on Sat10/04/23 at 1350, Intra-Op Given 10/04/2023 2:39 PM ENGINEHOUSE BRAKEM[facility] 47 mL Abdominal Tissue Given 10/04/2023 1:50 PM [employer]HOUSE [employer]RAKEM[facility] 3 mL Ab dominal Tissue documented in this encounter Active and Recently Administered Medications Times are shown in [employer]SE [employer]. Scheduled Medication Order 10/03/2023 10/04/2023 10/05/2023 acyclovir [...] Provider: Cate Mckinney R.N., BRAXTONN, CCRN) 003 (MAR Hold - Provider: Transfer Provider, Automatic - Reason: Patient not available)0150 (MAR Unhold - Provider: Transfer Provider, Automatic)0838 (Given - Provider: Paul Saucedo R.N.)2099 (Due) famotidine injection 20 mg (PEPCID) 20 mg, intravenous, 2 times daily, First dose on Sat10/04/23 at 2100, Drug Monitoring Program: Pharmacist to adjust medication dosing based on indication and drug clearance factors. 2041 (Given - Provider: Cate Mckinney R.N., BRAXTONN, CCRN) 38 (MAR Hold - Provider: Transfer Provider, Automatic - Reason: Patient not available)0150 ([facility] Unhold - Provider: Transfer Provider, Automatic)0838 (Given - Provider: Paul Saucedo R.N.)2099 (Due) fentaNYL injection 50 mcg (SUBLIMAZE) (COMPLETED) [...] clearance factors., Indications: Intra-abdominal infection, healthcare associated 1646 (New Bag - Provider: Prashant Perez R.N.) 1600 (Due) hydrocortisone sodium succinate (PF) injection 100 mg (Solu-CORTEF) 100 mg, intravenous, Every 8 hours, First dose on Sat10/04/23 at 1900, IV push over 30 seconds per 100 mg (For doses 500 mg or less) 1937 (Given - Provider: Cate Mckinney R.N., BRAXTONN, CCRN) 003 (MAR Hold - Provider: Transfer Provider, Automatic - Reason: Patient not available)0150 (MAR Unhold - Provider: Transfer Provider, Automatic)0321 (Given [...] 1 dose 0319 (Given - Provid er: Ctae Mckinney R.N., BRAXTONN, CCRN) Lactated Ringer's bolus 1,000 mL (COMPLETED) 1,000 mL, intravenous, at 2,000 mL/hr, Administer over 30 Minutes, Once, On Sat10/04/23 at 1600, For 1 dose 1617 (New Bag - Provider: Prashant Perez R.N.) Lactated Ringer's bolus 1,000 mL (COMPLETED) 1,000 mL, intravenous, at 2,000 mL/hr, Administer over 30 Minutes, Once, On Sat10/04/23 at 1815, For 1 dose 1821 (New Bag - Provider: Prashant Perez R.N.) [...] mL/hr, Administer over 1 Hours, Once, On 10/05/23 at 0345, For 1 dose 0327 (New Bag - Provider: Cate Mckinney R.N., TCRN, CCRN) Lactated Ringer's bolus 1,000 mL (COMPLETED) 1,000 mL, intravenous, at 250 mL/hr, Administer over 4 Hours, Once, On Sat10/05/23 at 0815, For 1 dose 0808 (New Bag - Provider: Paul Saucedo R.N.) levothyroxine injection 168 mcg 168 mcg, intravenous, Daily, First dose on Sat10/06/23 at 0900, For 2 doses, IV push over 1 minute 0039 (NOV Hold - Provider: Transfer Provider, Automatic - Reason: Patient not available)0150 (NOV Unhold - Provider: Transfer Provider, Automatic) levothyroxine injection 84 mcg (COMPLETED) 84 mcg, intravenous, Once, On 10/05/23 at 0700, For 1 dose, IV push over 1 minute 0039 (NOV Hold - Provider: Transfer Provider, Automatic - Reason: Patient not available)0150 (NOV Unhold - Provider: Transfer Provider, Automatic)0620 (Given - Provider: Cate Mckinney R.N., TCRN, CCRN) magnesium sulfate in water IVPB 2 g (COMPLETED) 2 g, intravenous, at 25 mL/hr, Administer over 120 Minutes, Once, On Sat10/05/23 at 0615, For 1 dose 0559 (New [...] 1830, Administer 30 minutes before acyclovir dose 2006 (New Bag - Provider: Cate Mckinney R.N., GELA, CCRN) 0039 (NOV Hold - Provider: Transfer Provider, Automatic - Reason: Patient not available)0150 (NOV Unhold - Provider: Transfer Provider, Automatic)0556 (New [...] Bag - Provider: Cate Mckinney R.N., GELA, CCRN - Comment: insuffiecient acccess) sodium chloride [...] - Provider: Cate Mckinney R.N., BRAXTONN, CCRN) Continuous Medication Order 10/03/2023 10/04/2023 10/05/2023 [...] to titratable arousal order for RASS goal. 165 (New Bag - Provider: Prashant Perez R.N.)1800 (Rate/Dose Verify - Provider: Prashant Perez R.N.)1935 (Rate/Dose Change - Provider: Cate Mckinney R.N., BRAXTONN, CCRN)2000 (Rate/Dose Verify - Provider: Cate Mckinney R.N., TCRN, CCRN)2057 (Stopped - Provider: Cate Mckinney R.N., TCRN, CCRN - Comment: per sicu)2114 (Restarted - Provider: Cate Mckinney R.N., TCRN, CCRN)2154 (Rate/Dose Change - Provider: Sherry Lara.Shelby, TCRN, CCRN)2200 (Rate/Dose Verify - Provider: Cate Mckinney R.N., TCRN, CCRN)2300 (Rate/Dose Verify - Provider: Sherry Lara.Shelby, TCRN, CCRN) 0000 (Rate/Dose Verify - Provider: Sherry Lara.Shelby, TCRN, CCRN)0033 (Rate/Dose Verify - Provider: Kayla Spencer M.D.)0200 (Rate/Dose Verify - Provider: Cate Mckinney R.N., TCRN, CCRN)0300 (Rate/Dose Verify - Provider: Sherry Lara.Shelby, TCRN, CCRN)0400 (Rate/Dose Verify - Provider: Sherry Lara.Shelby, TCRN, CCRN)0500 (Rate/Dose Verify - Provider: Sherry Lara.Shelby, TCRN, CCRN)0600 (Rate/Dose Verify - Provider: Cate Mckinney R.N., TCRN, CCRN)0700 (Rate/Dose Verify - Provider: Sherry Lara.Shelby, TCRN, CCRN)0800 (Rate/Dose Verify - Provider: Paul [...] Bag - Provider: Cate Mckinney R.N., BRAXTONN, CCRN)2300 [...] 6 hours after Heparin resumed 0154 (New Bag - Prov ider: Cate Mckinney R.N., TCRN, CCRN)0200 (Rate/Dose Verify [...] mL 0509 (New Bag - Prov ider: Cate Mckinney R.N., TCRN, CCRN)0529 (Rate/Dose Change - Provider: Cate Mckinney R.N., TCRN, CCRN)0600 (Rate/Dose Verify - Provider: Cate Mckinney R.N., TCRN, CCRN)0633 (Rate/Dose Change - Provider: Cate Mckinney R.N., TCRN, CCRN)0700 (Rate/Dose Verify - Provider: Cate Mckinney R.N., TCRN, CCRN)0800 (Rate/Dose Verify - Provider: Paul Saucedo R.N.)0900 (Rate/Dose Verify - Provider: Paul Saucedo R.N.)1000 (Rate/Dose Verify - Provider: Paul Saucedo R.N.)1100 (Rate/Dose Verify - Provider: Sherry Preston.N.)1200 (Rate/Dose Verify - Provider: Paul Saucedo R.N.) Lactated Ringer's 250 mL/hr, intravenous, Continuous, Starting on Sat10/04/23 at 1600, For 21 hours 1640 (New Bag - Provider: Prashant Perez R.N.)1800 (Rate/Dose Verify - Provider: Prashant Perez R.N.)2000 (Rate/Dose Verify - Provider: Sherry Lara.Shelby, TCRN, CCRN)2100 (Rate/Dose Verify - Provider: Cate Mckinney R.N., TCRN, CCRN)2200 (Rate/Dose Verify - Provider: Cate Mckinney R.N., TCRN, CCRN)2300 (Rate/Dose Verify - Provider: Sherry Lara.Shelby, TCRN, CCRN)2326 (New Bag - Provider: Cate Mckinney R.N., TCRN, CCRN) 0000 (Rate/Dose Verify - Provider: Sherry Lara.NJohanna, TCRN, CCRN)0200 (Rate/Dose Verify - Provider: Sherry Lara.NJohanna, TCRN, CCRN)0300 (Rate/Dose Verify - Provider: Sherry Lara.NJohanna, TCRN, CCRN)0400 (Rate/Dose Verify - Provider: Sherry Lara.Shelby, TCRN, CCRN)0500 (Rate/Dose Verify - Provider: Cate [...] (New Bag - Provider: Keena Diggs APRN, OUTSIDE SALES REPRESENTATIVE)1329 (Rate/Dose Change - Provider: Keena Diggs APRN, SAL)1544 (Stopped - Provider: Linh Vallejo R.N., CCRN) [...] CCRN)1549 (Rate/Dose Change - Provider: Linh Vallejo R.NJohanna, CCRN)1600 (Rate/Dose Change - Provider: Prashant Perez R.N.)1605 (Rate/Dose Change - Provider: Prashant Perez R.N.)1611 (Rate/Dose Change - Provider: Prashant Perez R.N.)1655 (Rate/Dose Change - Provider: Prashant Perez R.N.)1704 (Rate/Dose Change - Provider: Prashant Perez R.N.)1716 (Rate/Dose Change - Provider: Prashant Perez, R.N.)1721 (Rate/Dose Change - Provider: Prashant Perez, R.N.)1743 (Rate/Dose Change - Provider: Prashant Perez, R.N.)1752 (New Bag - Provider: Prashant Perez R.N.)1800 (Rate/Dose Verify - Provider: Prashant Perez R.N.)1901 (Rate/Dose Change - Provider: Cate Mckinney R.N., TCRN, CCRN)1908 (Rate/Dose Change - Provider: Cate Mckinney R.Alvaro., TCRN, CCRN)1999 (Rate/Dose Verify - Provider: Cate Mckinney R.N., TCRN, CCRN)2000 (Rate/Dose Change - Provider: Sherry Lara.Shelby, TCRN, CCRN)2022 (Rate/Dose Change - Provider: Cate Mckinney R.N., TCRN, CCRN)2049 (Rate/Dose Change - Provider: Cate E Hank, R.N., TCRN, CCRN)205 (Rate/Dose Change - Provider: Sherry Lara.N., TCRN, CCRN)2100 (Rate/Dose Verify - Provider: Sherry Lara.N., TCRN, CCRN)2104 (Rate/Dose Change - Provider: Sherry Lara.N., TCRN, CCRN)2140 (New Bag - Provider: Sherry Lara.N., TCRN, CCRN)2200 (Rate/Dose Verify - Provider: Sherry Lara.N., TCRN, CCRN)2300 (Rate/Dose Verify - Provider: Sherry Laar.Shelby, TCRN, CCRN) 0000 (Rate/Dose Verify - Provider: Sherry Lara.Shelby, TCRN, CCRN)0033 (Rate/Dose Verify - Provider: Kayla Spencer M.D.)0056 (Rate/Dose Change - Provider: Kayla Spencer M.D.)0057 (Rate/Dose Change - Provider: Kayla Spencer M.D.)0117 (Rate/Dose Change - Provider: Kayla Spencer M.D.)0150 (Rate/Dose Change - Provider: Kayla Spencer M.D.)0200 (Rate/Dose Verify - Provider: Sherry Lara.Shelby, TCRN, CCRN)0237 (Rate/Dose Change - Provider: Cate Mckinney R.N., TCRN, CCRN)0300 (Rate/Dose Verify - Provider: Sherry Lara.NJohanna, TCRN, CCRN)0345 (New Bag - Provider: Sherry Lara.NJohanna, TCRN, CCRN)0400 (Rate/Dose Verify - Provider: Sherry Lara.N., TCRN, CCRN)0500 (Rate/Dose Verify - Provider: Sherry Lara.N., TCRN, CCRN)0600 (Rate/Dose Verify - Provider: Sherry Lara.N., TCRN, CCRN)0632 (New Bag - Provider: Cate [...] R.N., TCRN, CCRN)2351 (Rate/Dose Change - Provider: Cate E Hank, R.N., TCRN, CCRN) 0000 (Rate/Dose Verify - Provider: Sherry Lara.N., TCRN, CCRN)0005 (Rate/Dose Change - Provider: Sherry Lara.N., TCRN, CCRN)0033 (Rate/Dose Verify - Provider: Kayla Spencer M.D.)0200 (Rate/Dose Verify - Provider: Sherry Lara.N., TCRN, CCRN)0241 (Rate/Dose Change - Provider: Sherry Lara.N., TCRN, CCRN)0300 (Rate/Dose Verify - Provider: Sherry Lara.N., TCRN, CCRN)0304 (Rate/Dose Change - Provider: Sherry Lara.N., TCRN, CCRN)0350 (Rate/Dose Change - Provider: Sherry Lara.N., TCRN, CCRN)0400 (Rate/Dose Verify - Provider: Cate Mckinney R.N., TCRN, CCRN)0432 (New Bag - Provider: Cate Mckinney, R.N., TCRN, CCRN)0500 (Rate/Dose Verify - Provider: Sherry Lara.Alvaro., TCRN, CCRN)0600 (Rate/Dose Verify - Provider: Sherry Lara.N., TCRN, CCRN)0700 (Rate/Dose Verify - Provider: Sherry Lara.Alvaro., TCRN, CCRN)0800 (Rate/Dose Verify - Provider: Paul Saucedo R.Alvaro.)0830 (Rate/Dose Change - Provider: Paul Saucedo R.N.)0900 (Rate/Dose Verify - Provider: Paul Saucedo R.Alvaro.)0910 (New Bag - Provider: Sherry Preston.Alvaro.)0923 (Rate/Dose Change - Provider: Sherry Preston.N.)0939 (Rate/Dose Change - Provider: Sherry Preston.Alvaro.)0958 (Rate/Dose Change - Provider: Sherry Preston.Alvaro.)1000 (Rate/Dose Verify - Provider: Paul Saucedo R.N.)1018 (Rate/Dose Change - Provider: Paul Saucedo R.N.)1100 (Rate/Dose Verify - Provider: Paul Saucedo R.N.)1149 (Rate/Dose Change - Provider: Paul Saucedo R.N.)1200 (Rate/Dose Verify [...] - Provider: Cate Mckinney R.N., TCRN, CCRN) vasopressin 20 unit/100 mL (0.2 unit/mL) in D5W 100 mL infusion (PITRESSIN) (CANCELED) 0.04 Units/min (12 mL/hr), intravenous, Continuous, Starting on Sat10/04/23 at 1324, Intra-Op, 20 units in 100 mL 1402 (New Bag - Provider: Keena Diggs HYDROMETER TESTER, OUTSIDE SALES REPRESENTATIVE) vasopressin 20 unit/100 mL (0.2 unit/mL) in D5W 100 mL infusion (PITRESSIN) 0.04 Units/min (12 mL/hr), intravenous, Continuous, Starting on Sat10/04/23 at 1545, 20 units in 100 mL 1546 (New Bag - Provider: Linh Vallejo R.N., CCRN)1800 (Rate/Dose Verify - Provider: Prashant Perez R.N.)2000 [...] Verify - Provider: Cate Mckinney R.N., TCRN, CCRN)0342 (New Bag - Provider: Cate [...] 1924 (Bolus from Bag - Provider: Cate Mckinney R.N., TCRN, CCRN)2116 (Bolus from Bag - Provider: Cate Mckinney R.N., TCRN, CCRN)2357 (Bolus from Bag - Provider: Cate Mckinney R.N., TCRN, CCRN) 0039 (NOV Hold - Provider: Transfer Provider, Automatic - Reason: Patient not available)0150 (NOV Unhold - Provider: Transfer Provider, Automatic)0236 (Bolus [...] (Not Given - Provider: Belen Vasquez R.N., [facility] - Reason: Discontinued) heparin (porcine) 1,000 unit/mL [...] needed, antiXa less than 0.1, Starting on Sat10/05/23 at 0143, Intensity type: Moderate, Anti-Xa < 0.1: Loading Dose (Units/kg): 60, Anti-Xa 0.1-0.19: Loading Dose (Units/kg): 30, Anti-Xa > 0.19: Loading Dose (Units/kg): 0 HYDROmorphone (PF) injection 1 mg (DILAUDID) (CANCELED) 1 mg, intravenous, Every 1 hour PRN, severe pain or score 7-10 of 10, Starting on Sat10/04/23 at 1001 1004 (Given - Provider: Belen Vasquez R.N., [facility])1119 (Given - Provider: Melva Jc)1246 (MAR Hold - Provider: Transfer Provider, Automatic - Reason: Patient not available)1524 (NOV Unhold - Provider: Transfer Provider, Automatic) insulin [...] Prashant Perez R.N.)1855 (Rate/Dose Change - Provider: Prashant Perez R.N.)2000 (Rate/Dose Verify - Provider: Sj LaraNJohanna, TCRN, CCRN)2016 (Rate/Dose Change - Provider: Sherry Lara.N., TCRN, CCRN)2100 (Rate/Dose Verify - Provider: Sherry Lara.NJohanna, TCRN, CCRN)2104 (Rate/Dose Change - Provider: Sherry Lara.NJohanna, TCRN, CCRN)2200 (Rate/Dose Verify - Provider: Sj LaraNJohanna, TCRN, CCRN)2207 (Rate/Dose Change - Provider: Sehrry Lara.NJohanna, TCRN, CCRN)2300 (Rate/Dose Verify - Provider: Sherry Lara.NJohanna, TCRN, CCRN)2320 (Rate/Dose Change - Provider: Sherry Lara.NJohanna, TCRN, CCRN) 0000 (Rate/Dose Verify - Provider: Sherry Lara.NJohanna, TCRN, CCRN)0003 (Rate/Dose Change - Provider: Cate Mckinney R.N., TCRN, CCRN)0033 (Rate/Dose Verify - Provider: Kayla Spencer M.D.)0200 (Rate/Dose Verify - Provider: Sherry Lara.NJohanna, TCRN, CCRN)0211 (Rate/Dose Change - Provider: Sherry Lara.NJohanna, TCRN, CCRN)0300 (Rate/Dose Verify - Provider: Sherry Lara.NJohanna, TCRN, CCRN)0315 (Rate/Dose Verify - Provider: Cate Mckinney R.N., TCRN, CCRN - Comment: [Action automatically changed])0400 (Rate/Dose Verify - Provider: Cate Mckinney R.N., TCRN, CCRN)0415 (Rate/Dose Change - Provider: Cate Mckinney R.N., TCRN, CCRN)0500 (Rate/Dose Verify - Provider: Cate Mckinney R.N., TCRN, CCRN)0503 (Rate/Dose Verify - Provider: Cate Mckinney R.N., TCRN, CCRN - Comment: [Action automatically changed])0529 (Stopped - Provider: Cate Mckinney R.N., TCRN, CCRN) iohexoL 300 mg iodine/mL solution 1-200 [...] (Rate/Dose Verify - Provider: Cate Mckinney R.N., GELA, CCRN)0300 (Rate/Dose Verify - Provider: Cate Mckinney R.N., TCRAlvaro, CCRN)0400 (Rate/Dose Verify - Provider: Cate Mckinney R.N., GELA, CCRN)0500 (Rate/Dose Verify - Provider: Cate Mckinney [...] documented as of this encounter Care Teams Research Geneticist Relationship Specialty Start Date End Date Elsewhere, Pcp PCP - General Internal Medicine 09/14/23 documented as of this encounter
--- OUTSIDE RECORDS SUMMARY | 2023-10-05 12:52 | XMS_ITS | Encounter Summary ---
Author Name Unknown Organization [facility] Address [address] [place] [id number] Care Team Providers Care Manager Hydraulic Name Role Phone Elsewhere, Pcp Primary Care Provider Unavailabl e Reason for Referral * Outpatient (Routine) - Authorized Specialty Diagnoses / Procedures Referred By Contac t Referred To Contact Nutrition Diagnoses Mass Duodenum West Mendoza APRN, C.N.P., M.S. [address] [place] [phone] [facility] Referral ID Status Reason Start Date Expiration Date V isits Requested Visits Authorized [id number] Authorized 10/03/2023 04/03/2025 1 1 Scheduling Instructions Post - Placement ETING AUTOMATION ANALYST * Outpatient (Routine) - Authorized Specialty Diagnoses / Procedures Referred By Contac t Referred To Contact Endocrinology Diagnoses Lymphoma Non Hodgkins (HCC) West Mendoza APRN, C.N.P., M.S. [address] [place] [phone] [facility] PROVIDER Linda VEGA Referral ID Status Reason Start Date Expiration Date V isits Requested Visits Authorized [id number] Authorized 10/03/2023 04/03/2025 1 1 ETING AUTOMATION ANALYST Reason for Visit * Outpatient (Routine) - Closed Specialty Diagnoses / Procedures Referred By Doroteo duron Referred To Contact Endocrinology Diagnoses Lymphoma Non Hodgkins (HCC) Mass Duodenum Faustino Nuñez M.B.B.S. [address] [place] [phone] [facility] Referral ID Status Reason Start Date Expiration Date Visits Re quested Visits Authorized [id number] Closed 09/17/2023 09/16/2024 1 1 Encounter Details Date Type Department Care Team (Latest Contact Info) Description 10/03/2023 11:00 AM MARKETING AUTOMATION ANALYST Comprehensive Visit Division of Endocrinology in [place], [place] [address] [place] [phone] Faustino Nuñez M.B.B.S. [address] [place] [phone] West Mendoza APRN, CJohannaNJohannaPJohanna, M.S. [address] [place] [phone] Mass Duodenum (Primary Dx); Lymphoma Non Hodgkins (HCC); Malnutrition Severe Protein-Calorie (HCC); Gastrojejunostomy Percutaneous Status Post ; Dietary Counseling And Surveillance For Enteral Nutrition Social History Tobacco Use Types Packs/Day Years Used Date Smoking Tobacco: Former Cigarettes 1 22 Q uit: 02/07/1989 Passive Smoke Exposure: Never Smokeless Tobacco: Former Snuff, Chew Quit: 04/18/2023 Alcohol Use Standard Drinks/Week Comments Not Currently 3 (1 standard drink = 0.6 oz pur e alcohol) [facility] Utilities Answer Date Recorded In the past 12 months has e [employer], gas, oil, or water [employer] threatened to shut off services in your [...] often do you attend chur ch or shinto services? Never 01/10/2023 Do you belong to any clubs o r organizations such as amish groups, unions, fraternal or athletic groups, or [...] Answer Date Recorded PHQ-2 Score 0 04/25/2020 [facility] [place] [facility] Occupat ional Health - Occupational Stress [...] your living situation today? I have a [facility] place to live 09/15/2023 Education [...] PM CDT documented as of this encounter Consult Notes * West Mendoza APRN, C.N.P., M.S. - 10/03/2023 11:00 AM CST SUBJECTIVE REFERRAL: Ana Pollock CHIEF COMPLAINT / REASON FOR VISIT Evaluation of nutritional status and current enteral regimen HISTORY OF PRESENT ILLNESS Mr. Hola Lau is a 72 y.o. 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 He started treatment in May 2023 of [facility] with last cycle on 08/12/23 . He was hospitalized in September 2023 for nausea and vomiting intolerance to oral intake with nasal jejunal feeding tube placement and later gastrostomy tube with jejunal extension was placed. Medical history is notable for chronic kidney disease, type 2 diabetes, hyperlipidemia, hypertension, hypothyroidism with history of thyroid cancer, history of CVA. Mr. Lau pr esents with his significant other for evaluation. ENTERAL INTAKE Currently doing 5 cartons of Nutren 1.5 at 52 mL/hr ORAL INTAKE Since leaving the hospital yesterday he is taking in very little. In the hospital he feels like they are pushing him a lot to try to eat a mechanical soft diet. TUBE SITE CONCERNS None at this time. He had a lot education from the Home [facility]al Nutrition nurse about cares this morning. SUPPLEMENTS None at this time. ACTIVITY Minimal. He is significant fatigue. He has significant debility. He is planning on starting his physical and occupational therapy exercises once he gets settled at home after his hospital dismissal yesterday. Refer to documentation by [facility] dietitian and [facility] nurse for further detail and specifics regarding current hydration, nutritional intake, weight trends, enteral nutrition plan, and feeding tube. OBJECTIVE PHYSICAL EXAMINATION General: In no acute distress. Accompanied by significant other. Skin: Warm and dry. ENT: Moist mucous membranes. Abdomen: Soft, non-distended. Gastrojejunostomy tube site with small amount of circumferential erythema, small amount of thin yellow drainage, no evidence or concerns for infection. Extremities: Bilateral lower extremities without edema. Musculoskeletal: Significantly diminished strength bilateral upper and lower extremities. Overt temporal, clavicular, and scapular muscle wasting appreciated. Significantly depleted body muscle mass and some preserved body fat mass. Mental: Alert and oriented. Asks appropriate questions and able to verbalize medical plan. Bio Impedance Body Composition Testing: Weight: 71.1 kg, within normal Skeletal Muscle Mass: 26.5 kg, slightly below normal Dry Lean Mass: 13.4 kg Body Fat Mass: 19.9 kg, above normal Percent Body Fat: 28%, slightly above normal Visceral Fat Mass: 110.7 centimeters squared slightly above normal Water Analysis: 0.422 (Normal: 0.360-0.390) Whole Body Phase Angle: 2.5 Hand Weed Science Research Technician Strength and Chair to Stand: Right hand: 16.3 Left hand: 14.3 Unable to do [id number] DIAGNOSTICS: I reviewed the imaging studies and agree with the interpretation as recorded. I reviewed the pertinent laboratory and diagnostic data. ASSESSMENT / PLAN #1 Mass Duodenum #2 Lymphoma Non Hodgkins (HCC) Mr. Hola Lau presents to [facility] clinic for evaluation of current nutritional status, enteral regimen, and feeding tube. Overall, he is doing well. He just dismissed from the hospital yesterday. Today's visit involved a significant amount of education regarding management of tube feedings, feeding tube, feeding tube site, and overall nutrition goals. Mr. Lau does meet criteria for malnutrition based on recent reported oral intake, percentage ofunintentional weight loss, BMI, physical exam findings, objective nutrition data, and current disease and/or inflammation burden. Goal at this time, will be for overall weight maintenance however being diligent with physical rehabilitation for improvement in strength and increase in lean body mass.He will continue to work on these at home and knows to reach out to his physical therapy team if heis struggling with improvement over the next couple weeks. We will continue with his current enteral nutrition regimen. We provided education on how to increase the rate of feeding and decreased time on the pump. We provided education on oral intake and onlydoing this for pleasure. Currently not venting at this time, recommended they reach out if he develops any signs or symptoms of GI symptoms. RECOMMENDATIONS: 1. Continue current enteral nutrition regimen 2. Goal of weight maintenance around 72 kg 3. Increase physical activity and continue physical therapy and occupational therapy to rebuild strength, endurance, and overall functional status 4. Will communicate to his previous diabetes provider regarding significant changes to his nutritional regimen given his little oral intake and now dependence on enteral pump feeds in case any adjustments in diabetes medication management as needed 5. Follow up with Home [facility] Nutrition in November 2023 when return for surgery evaluation I personally spent a total of 40 minutes in [id number] and face to face time performing a review of the record, visit with the patient, and coordination of care as described above. ETING AUTOMATION ANALYST documented in this encounter Plan of Treatment Upcoming Encounters Date Type Department Care Team (Latest Contact Info) Description 10/06/2023 9:04 AM MARKETING AUTOMATION ANALYST - 10/06/2023 11:24 AM MARKETING AUTOMATION ANALYST Surgery [facility] MAIN OR [address] [place] [phone] Cameron Saenz M.D. [address] [place] [phone] ABDOMINAL EXPLORATION, REMOVAL ABTHERA, POSSBLE BOWEL RESECTION, PROCEED INDICATED 10/11/2023 7:00 AM MARKETING AUTOMATION ANALYST Appointment Department of Laboratory Medicine and Pathology, [facility], in [place], [place] [address] [place] [phone] Arti Epstein M.B.B.S. [address] [place] [phone] 10/11/2023 9:00 AM MARKETING AUTOMATION ANALYST Office Visit Division of Hematology in [place], [place] [address] [place] [phone] Arti Epstein M.B.B.S. [address] [place] [phone] 10/11/2023 10:00 AM MARKETING AUTOMATION ANALYST Infusion Department of Oncology in [address] [phone] Bev Gifford APRN, C.N.P., M.S.N. [address] [place] [phone] 11/19/2023 10:00 AM CDT Office Visit Division of Endocrinology in [place], [place] [address] [place] [phone] West Mendoza APRN, C.N.P., M.S. 200 [place] [phone] 11/19/2023 2:30 PM CDT Comprehensive Visit Division of Hepatobiliary and Pancreas Surgery in [place], [place] 200 [place] [phone] Wesley Hamitlon M.D. 200 [place] [phone] Scheduled Procedures Name Priority Associated Diagnoses Date/Ti me LAPAROTOMY - ABDOMINAL WASHOUT Ischemia Intestinal With Stricture (HCC) 10/06/2023 9:04 AM MARKETING AUTOMATION ANALYST Scheduled Referrals Name Type Priority Associated Diagnoses Order Schedule Endocrinology office visit (clinic) Outpatient Referral Routine Lymphoma Non Hodgkins (HCC) Expected: 11/19/2023, Expires: 01/01/2025 Nutrition - Home nutrition medical nutrition therapy consult (clinic) Outpatient Referral Routine Mass Duodenum Expected: 11/19/2023, Expires: 01/01/2025 documented as of this encounter Results * Vitamin B12 Assay (10/03/2023 12:33 PM MARKETING AUTOMATION ANALYST) Vitamin B12 Assay, S 859 180 - 914 ng/L 10/03/2023 1:49 PM MARKETING AUTOMATION ANALYST DTL Comment: ----ADDITIONAL INFORMATION---- In patients being evaluated for vitamin B12 deficiency who have intrinsic factor blocking antibodies (IFBA), false elevations of B12 may occur due to IFBA interference thus potentially obscuring a physiological deficiency of B12. If observed B12 concentrations are discordant with clinical presentation, measurement of methylmalonic acid (MMA) should be considered. Blood (Blood, Venous) 10/03/2023 12:33 PM MARKETING AUTOMATION ANALYST 10/03/2023 1:04 PM MARKETING AUTOMATION ANALYST Lola Blanca APRN.N.P., M.S. LA B BLOOD ADD-ON [facility] 200 [place] [address], [facility] DTL [facility] 200 [place] [address] * 25-Hydroxyvitamin D2 and D3 (10/03/2023 12:33 PM MARKETING AUTOMATION ANALYST) 25-Hydroxy D2 <4.0 ng/mL 10/04/2023 3:37 PM MARKETING AUTOMATION ANALYST SDS 25-Hydroxy D3 48 ng/mL 10/04/2023 3:37 PM MARKETING AUTOMATION ANALYST SDSC 25-Hydroxy D Total 48 ng/mL 2023 3:37 PM MARKETING AUTOMATION ANALYST [facility] Comment: ----REFERENCE VALUE---- 25-HYDROXY D TOTAL (D2+D3) Optimum levels in the healthy population are 20-50, patients with bone disease may benefit from higher levels within this range. ----ADDITIONAL INFORMATION---- This test was developed and its performance characteristics determined by [facility] in a manner consistent with CLIA requirements. This test has not been cleared or approved by the U.S. Food and Drug Administration. Blood (Blood, Venous) 10/03/2023 12:33 PM MARKETING AUTOMATION ANALYST 10/04/2023 7:30 AM MARKETING AUTOMATION ANALYST West Mendoza APRN, C.N.P., M.SJohanna PIERCE BLOOD ADD-ON [facility] [address] [place] [address] [facility] [address] [place] [address] [place] [address] * Soluble Transferrin Receptor (sTfR) (10/03/2023 12:33 PM MARKETING AUTOMATION ANALYST) Pathologist [facility] Soluble Transferrin Receptor (sTfR) 3.3 1.8 - 4.6 mg/L 10/03/2023 4:11 PM MARKETING AUTOMATION ANALYST DTL Comment: ----ADDITIONAL INFORMATION---- It is reported that Americans may have slightly higher values. Blood (Blood, Venous) 10/03/2023 12:33 PM MARKETING AUTOMATION ANALYST 10/03/2023 1:04 PM MARKETING AUTOMATION ANALYST Eliecer Blanca APRNNGovind, M.S. [place] Sindy BLOOD ADD-ON [facility] [address] [place] [address], [facility] DTL [facility] [address] [place] [address] documented in this encounter Visit Diagnoses Diagnosis Mass Duodenum- Primary Lymphoma Non Hodgkins (HCC) Malnutrition Severe Protein-Calorie (HCC) Gastrojejunostomy Percutaneous Status Post Dietary Counseling And Surveillance For Enteral Nutrition Ischemia Intestinal With Stricture (HCC) documented in this encounter Additional Health Concerns Infection Onset Date Last Indicated Resolved Time Protective Environment 05/17/2023 05/17/2023 documented as of this encounter Care Teams Manager Hydraulic Relationship Specialty Start Date End Date Elsewhere, Pcp PCP - General Internal Medicine 09/14/23 documented as of this encounter
--- OUTSIDE RECORDS SUMMARY | 2023-10-05 12:52 | XMS_ITS | Encounter Summary ---
Author Name Unknown Organization [facility] Address [address] [place] [address] Care Team Providers Care Funding Coordinator Name Role Phone Elsewhere, Pcp Primary Care Provider Unavailabl e Reason for Visit * Reason Comments Abnormal ECG Abdominal Pain Encounter Details Date Type Department Care Team (Latest Contact Info) Description 10/04/2023 8:06 AM POWDERED SUGAR PULVERIZER OPERATOR - Present Hospital Encounter [facility], [facility], [facility], Seventh Floor [address] [place] [address] [phone] Jayna Albert M.D. [address] [place] [address] [phone] Jeaneth Gonzalez M.D. [address] [place] [address] [phone] Cameron Saenz M.D. [address] [place] [address] [phone] Volvulus Cecal (HCC) (Primary Dx); Peritonitis Acute Generalized (HCC); Ischemia Mesenteric (HCC) Social History Tobacco Use Types Packs/Day Years Used Date Smoking Tobacco: Former Cigarettes 1 22 Q uit: 02/07/1989 Passive Smoke Exposure: Never Smokeless Tobacco: Former Snuff, Chew Quit: 04/18/2023 Alcohol Use Standard Drinks/Week Comments Not Currently 3 (1 standard drink = 0.6 oz pur e alcohol) [facility] Utilities Answer Date Recorded In the past 12 months has th e electric, gas, oil, or water company [...] often do you attend chur ch or amish services? Never 01/10/2023 Do you belong to any clubs o r organizations such as samaritan groups, unions, fraternal or athletic groups, or [...] Answer Date Recorded PHQ-2 Score 0 04/25/2020 [facility] [place] of Occupat ional [facility] - Occupational Stress Questionnaire Answer Date [...] your living situation today? [facility] 09/15/2023 Education Answer Date [...] Comments Blood Pressure 110/69 10/05/2023 12:00 PM POWDERED SUGAR PULVERIZER OPERATOR Pulse 104 10/05/2023 12:30 PM POWDERED SUGAR PULVERIZER OPERATOR Temperature 37.6 ??C (99.7 ??F) 10/05/2023 12:[address] Respiratory Rate 22 10/05/2023 12:30 PM POWDERED SUGAR PULVERIZER OPERATOR Oxygen Saturation 98% 10/05/2023 12:30 PM POWDERED SUGAR PULVERIZER OPERATOR Inhaled Oxygen Concentration - - Weight 84.4 kg (186 lb 1.1 oz) 10/05/2023 2:37 A M POWDERED SUGAR PULVERIZER OPERATOR Height 172 cm (5' 7.72) 10/04/2023 6:00 PM POWDERED SUGAR PULVERIZER OPERATOR Body Mass Index 28.53 10/04/2023 6:00 PM POWDERED SUGAR PULVERIZER OPERATOR documented in this encounter Progress Notes * Honey Cabral R.R.T., L.R.T. - 10/05/2023 2:08 AM CST 10/05/23 0200 Internal Patient Transport Internal Patient Transport From OR Transport Equipment Assisted Ventilation Transport Time (minutes) 30 Respiratory Therapy provided patient transport from [place] 105 to [place] [address] using assisted ventilation settings: CMV R 18/Vt 470/+10/30%, Conversation with in- room provider prior to transport; patient transported without incident. Electronically signed by: Honey Cabral R.R.T., L.R.T. 10/05/23 2:09 AM POWDERED SUGAR PULVERIZER OPERATOR ERED SUGAR PULVERIZER OPERATOR * Honey Cabral R.R.T., L.R.T. - 10/05/2023 2:07 AM CST 10/05/23 0030 Internal Patient Transport Internal Patient Transport To OR Transport Equipment Assisted Ventilation Transport Time (minutes) 30 Respiratory Therapy provided patient transport from [place] [address] to [place] 105 using assisted ventilation settings: SPONT 10/+10/30%. Conversation with in-room provider prior to transport; patient transported without incident. Electronically signed by: Honey Cabral R.R.T., L.R.T. 10/05/23 2:08 AM POWDERED SUGAR PULVERIZER OPERATOR ERED SUGAR PULVERIZER OPERATOR * Kimberley Sierra APRN, C.N.P., D.N.P. - [...] 105 I/O last 3 completed shifts: In: 85789.1 [Enteric (NG/OG) Tube:40] Out: 2743 [Urine:1388; Emesis [...] while in discontinuity - Last bowel movement: MANAGER ACUTE - Bowel regimen: none given discontinuity - [...] Acute (Blood Loss Anemia) SICU service pager: [phone] ERED SUGAR PULVERIZER OPERATOR * Jorge Gómez, Cj, R.Ph. - 10/04/2023 5:55 PM CST Pharmacist [...] Exparel CV: ST and HD supported by NE/COUNTY DIRECTOR WELFARE, was on ATII but now off. Holding [...] IV and levothyroxine to IV at 168mcg M/W//Sun and 84mcg T/Th/Sat Covering intra-abdominal contamination with [...] noted in UpToDate and Yasmeen et al. Biol Declan Deanna Ish. 2009. 15:5452-6195. Jorge Gómez Pharm.D., R.Ph. Pager [phone] ERED SUGAR PULVERIZER OPERATOR * Jeaneth Gonzalez M.D. - 10/04/2023 5:00 PM CST I have rounded with and discussed the care of Mr. Hola Lau with the resident/NUCLEAR EQUIPMENT DESIGN ENGINEER-PA team.Please see the ICU team's documentation from today for further details as I reviewed pertinent history, physical exam, labs, and imaging and agree with the history, physical exam, assessment, and plan. Brief Summary: ICU admission note for 7 [facility] SICU. 72-year-old male. Critically ill. Presented to the ED this morning with diffuse abdominal pain of abrupt onset. 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 The last cycle wasAugust [address] revealed diffuse portal venous [...] procedural time which has been billed separately. ERED SUGAR PULVERIZER OPERATOR documented in this encounter H&P Notes * [...] Life partner Rhona is surrogate decision maker. ERED SUGAR PULVERIZER OPERATOR documented in this encounter Procedure Notes * [...] Events: none Patient tolerance of procedure: successful ERED SUGAR PULVERIZER OPERATOR Associated attestation - Jeaneth Gonzalez M.D. - 10/04/2023 5:00 PM POWDERED SUGAR PULVERIZER OPERATOR I was present for the entirety of [...] or surrogate Jayna Albert M.D. 10/04/23 1119 ERED SUGAR PULVERIZER OPERATOR documented in this encounter Consult Notes * Aaliyah Chacko M.B.B.S. - 10/04/2023 12:09 PM CSTAssociated Order(s): General Surgery consult (hospital) General Surgery consult ([facility]) Referring Provider: Jayna Albert M.D. Today's [...] retired and lives with his partner in [place]. ROS: as mentioned in HPI, otherwise negative [...] L4-L5 laminectomy; Surgeon: Ricardo Saucedo M.D.; Location: [facility] ROM[facility] OR EYE SURGERY 1985 cataracts [...] Critical findings discussed with Jayna Albert M.D. ([id number]) at 10:20 AM on 10/04/2023. ASSESSMENT / [...] Lazar, who was in agreement. Please page [phone] (HSS-A) with any questions or concerns. Mila MarchS. ERED SUGAR PULVERIZER OPERATOR Associated attestation - Rudy Lazar M.D. - 10/04/2023 12:37 PM POWDERED SUGAR PULVERIZER OPERATOR Patient seen and examined with resident(s) and [...] Standard ETT (Active) Placement Date/Time: 10/04/23 (c) 1315 Mask Ventilation: Easy mask Technique: Video laryngoscopy [...] cm H20-10 cm H20] 10 cm H20 DE SUP: [7 cm H20-10 cm H20] 7 [...] Left Brachial (Active) Placement Date/Time: 10/04/23 (c) 5647 Procedural Pause Completed: Yes Catheter Time Out [...] respiratory medications as ordered. Roderick Bales R.R.T., L.R.TJohanna 10/05/23 6:12 AM ERED SUGAR PULVERIZER OPERATOR * Jaimee Houston R.R.T., L.R.T. - 10/04/2023 [...] Reposition ETT every 4 hour and PRN. ERED SUGAR PULVERIZER OPERATOR documented in this encounter OR Notes * Op Note - Omar Hennessy M.D. - 10/05/2023 12:47 AM CST Pre-op Diagnosis Ischemia Mesenteric (HCC) Post-op Diagnosis Ischemia Mesenteric (HCC) Anesthesiology Tech A first calender worker actively participated and was necessary for one [...] ICU with pressor support. Omar Hennessy M.D. ERED SUGAR PULVERIZER OPERATOR * Brief Op Note - Juan Mahmood M.D., M.S. - 10/05/2023 12:47 AM POWDERED SUGAR PULVERIZER OPERATOR Pre-op Diagnosis Ischemia Mesenteric (HCC) Post-op Diagnosis Ischemia Mesenteric (HCC) Findings As expected. Complications None Midline laparotomy incision extension inferiorly, 46 cm of ileal resection, diffuse scattered smallbowel ischemia, 60-120 cm of viable small bowel identified, distended gallbladder, otherwise viablelarge bowel, ABThera replaced Juan Mahmood M.D., M.S. ERED SUGAR PULVERIZER OPERATOR * Op Note - Aaliyah Chacko M.B.B.S. - 10/04/2023 1:48 PM CST Pre-op Diagnosis Peritonitis Acute Generalized (HCC) Post-op Diagnosis Peritonitis Acute Generalized (HCC) Anesthesiology Tech A first calender worker actively participated and was necessary for one [...] a stable but critical state. Deyanira March. ERED SUGAR PULVERIZER OPERATOR Associated attestation - Rudy Lazar M.D. - 10/04/2023 3:50 PM POWDERED SUGAR PULVERIZER OPERATOR I have scrubbed and supervised the case [...] about 45 minutes. Melva Jc 10/04/23 1021 ERED SUGAR PULVERIZER OPERATOR * Ramon Hennessy M.D. - 10/04/2023 8:18 [...] as of 10/05/23 0019 Volvulus Cecal (HCC) Hennessy, Ramon S, M.D. Resident 10/05/23 0020 ERED SUGAR PULVERIZER OPERATOR * Jayna Albert M.D. - 10/04/2023 8:16 [...] discussionwith Radiology. I also informed the general strategic solutions consultant by phone regarding my concerns that patient [...] been consulted. I am personally paging the consultant intern to make them aware of the urgency [...] 10/05/23 0552 Jayna Albert M.D. 10/05/23 0556 ERED SUGAR PULVERIZER OPERATOR documented in this encounter Plan of Treatment Upcoming Encounters Date Type Department Care Team (Latest Contact Info) Description 10/06/2023 9:04 AM POWDERED SUGAR PULVERIZER OPERATOR - 10/06/2023 11:24 AM POWDERED SUGAR PULVERIZER OPERATOR Surgery RST ROMB MAIN OR [address] [place] [phone] Cameron Saenz M.D. [address] [place] [phone] ABDOMINAL EXPLORATION, REMOVAL ABTHERA, POSSBLE BOWEL RESECTION, PROCEED INDICATED 10/11/2023 7:00 AM POWDERED SUGAR PULVERIZER OPERATOR Appointment Department of Laboratory Medicine and Pathology, [facility], in [place], [place] [address] [place] [phone] Arti Epstein M.B.B.S. [address] [place] [phone] 10/11/2023 9:00 AM POWDERED SUGAR PULVERIZER OPERATOR Office Visit Division of Hematology in [place], [place] [address] [place] [phone] Arti Epstein M.B.B.S. [address] [place] [address] [phone] 10/11/2023 10:00 AM POWDERED SUGAR PULVERIZER OPERATOR Infusion Department of Oncology in [place], [place] [address] [place] [phone] Bev Gifford APRN, C.N.P., M.S.N. [address] [place] [phone] 11/19/2023 10:00 AM CDT Office Visit Division of Endocrinology in [place], [place] [address] [place] [phone] West Mendoza APRN, C.N.P., M.S. [address] [place] [address] [phone] 11/19/2023 2:30 PM CDT Comprehensive Visit Division of Hepatobiliary and Pancreas Surgery in [place], [place] [address] [place] [phone] Wesley Hamilton M.D. [address] [place] [phone] Pending Results Name Type Priority Associated Diagnoses Date/Time Bacteria / Joel Culture, Blood #1 Microbiology STAT 10/04/2023 8:4 1 AM POWDERED SUGAR PULVERIZER OPERATOR Bacteria / Joel Culture, Blood # 2 Microbiology STAT 10/04/2023 8: 50 AM POWDERED SUGAR PULVERIZER OPERATOR Prepare Red Blood Cells, 2 Units Blood Bank STAT 10/02/2023 5:51 AM POWDERED SUGAR PULVERIZER OPERATOR Surgical Pathology, Frozen Lab Pathology and Cytology Routine Peritonitis Acute Generalized (HCC) 10/04/2023 2:26 PM POWDERED SUGAR PULVERIZER OPERATOR Echo Transthoracic (TTE) Echocardiography STAT 10/05/2023 9:17 AM POWDERED SUGAR PULVERIZER OPERATOR Bacteria / Joel Culture, Blood #1 Microbiology Routine 10/05/2023 4:4 5 AM POWDERED SUGAR PULVERIZER OPERATOR Bacteria / Joel Culture, Blood #2 Microbiology Routine 10/05/2023 5:0 3 AM POWDERED SUGAR PULVERIZER OPERATOR Prepare Red Blood Cells Blood Bank Routine 10/02/2023 5:51 AM POWDERED SUGAR PULVERIZER OPERATOR Scheduled Orders Name Type Priority Associated Diagnoses Order Schedule Surgical Pathology, Frozen Lab Pathology and Cytology Routine Peritonitis Acute Generalized (HCC) Release Upon Ordering for 1 Occurrences starting 10/04/2023 until 10/13/2023 Pulse oximetry, continuous Intensive Care Unit (ICU) status Respiratory Care Routine respiratory u se [id number] ask reminder at 8am and 8pm until [...] Intestinal With Stricture (HCC) 10/06/2023 9:04 AM POWDERED SUGAR PULVERIZER OPERATOR documented as of this encounter Procedures The patient is currently admitted. The information in this section might not be complete until the patient is discharged. Procedure Name Priority Date/Time Associated Diagnosis Comments LACTATE, B Timed 10/05/2023 12:01 PM POWDERED SUGAR PULVERIZER OPERATOR PATIENT STATUS Timed 10/05/2023 12:01 PM POWDERED SUGAR PULVERIZER OPERATOR ABG W/COOX Timed 10/05/2023 12:01 PM POWDERED SUGAR PULVERIZER OPERATOR GLUCOSE POCT, B Routine 10/05/2023 11:45 AM POWDERED SUGAR PULVERIZER OPERATOR GLUCOSE POCT, B Routine 10/05/2023 7:21 AM POWDERED SUGAR PULVERIZER OPERATOR HEPARIN LEVEL ANTI-XA ASSAY, P Timed 10/05/2023 7:21 AM POWDERED SUGAR PULVERIZER OPERATOR GLUCOSE POCT, B Routine 10/05/2023 6:15 AM POWDERED SUGAR PULVERIZER OPERATOR DX CHEST PORTABLE 1 VIEW RAD - Routine (most inpatients and all outpatients) 10/05/2023 6:07 AM POWDERED SUGAR PULVERIZER OPERATOR GLUCOSE POCT, B Routine 10/05/2023 5:02 AM POWDERED SUGAR PULVERIZER OPERATOR PATIENT STATUS Timed 10/05/2023 4:28 AM POWDERED SUGAR PULVERIZER OPERATOR ABG W/COOX Timed 10/05/2023 4:28 AM POWDERED SUGAR PULVERIZER OPERATOR CALCIUM, IONIZED, S/B Timed 10/05/2023 4:28 AM POWDERED SUGAR PULVERIZER OPERATOR CYSTATIN C WITH EGFR Timed 10/05/2023 4:27 AM POWDERED SUGAR PULVERIZER OPERATOR CBC WITHOUT DIFFERENTIAL, B Routine 10/05/2023 4:27 AM POWDERED SUGAR PULVERIZER OPERATOR PHOSPHORUS (INORGANIC), S Timed 10/05/2023 4:27 AM POWDERED SUGAR PULVERIZER OPERATOR MAGNESIUM, S Timed 10/05/2023 4:27 AM POWDERED SUGAR PULVERIZER OPERATOR LACTATE, B/P Timed 10/05/2023 4:27 AM POWDERED SUGAR PULVERIZER OPERATOR BASIC METABOLIC PANEL, S/P Timed 10/05/2023 4:27 AM POWDERED SUGAR PULVERIZER OPERATOR TRANSFUSE RED BLOOD CELLS Routine 10/05/2023 4:22 AM POWDERED SUGAR PULVERIZER OPERATOR GLUCOSE POCT, B Routine 10/05/2023 4:12 AM POWDERED SUGAR PULVERIZER OPERATOR GLUCOSE POCT, B Routine 10/05/2023 3:15 AM POWDERED SUGAR PULVERIZER OPERATOR TRANSFUSE RED BLOOD CELLS Routine 10/05/2023 3:09 AM POWDERED SUGAR PULVERIZER OPERATOR GLUCOSE POCT, B Routine 10/05/2023 2:10 AM POWDERED SUGAR PULVERIZER OPERATOR LACTATE, B STAT 10/05/2023 12:52 AM POWDERED SUGAR PULVERIZER OPERATOR PATIENT STATUS STAT 10/05/2023 12:52 AM POWDERED SUGAR PULVERIZER OPERATOR SODIUM, B STAT 10/05/2023 12:52 AM POWDERED SUGAR PULVERIZER OPERATOR ABG W/COOX STAT 10/05/2023 12:52 AM POWDERED SUGAR PULVERIZER OPERATOR POTASSIUM, B STAT 10/05/2023 12:52 AM POWDERED SUGAR PULVERIZER OPERATOR GLUCOSE, WHOLE BLOOD STAT 10/05/2023 12:52 AM POWDERED SUGAR PULVERIZER OPERATOR CALCIUM, IONIZED, S/B STAT 10/05/2023 12:52 AM POWDERED SUGAR PULVERIZER OPERATOR GLUCOSE POCT, B Routine 10/05/2023 12:02 AM POWDERED SUGAR PULVERIZER OPERATOR GLUCOSE POCT, B Routine 10/04/2023 11:19 PM POWDERED SUGAR PULVERIZER OPERATOR ACTIVATED PARTIAL THROMBOPLASTIN TIME (APTT), P STAT 10/04/2023 10:08 PM POWDERED SUGAR PULVERIZER OPERATOR GLUCOSE POCT, B Routine 10/04/2023 10:07 PM POWDERED SUGAR PULVERIZER OPERATOR CBC WITHOUT DIFFERENTIAL, B STAT 10/04/2023 10:03 PM POWDERED SUGAR PULVERIZER OPERATOR BASIC METABOLIC PANEL, S/P STAT 10/04/2023 10:03 PM POWDERED SUGAR PULVERIZER OPERATOR THROMBOELASTOGRAPH, KAOLIN, B STAT 10/04/2023 9:59 PM POWDERED SUGAR PULVERIZER OPERATOR GLUCOSE POCT, B Routine 10/04/2023 9:03 PM POWDERED SUGAR PULVERIZER OPERATOR US UPPER EXTREMITY VEINS RIGHT RAD - Semiurgent (Fast; most ED patients; some inpatients) 10/04/2023 8:40 PM POWDERED SUGAR PULVERIZER OPERATOR GLUCOSE POCT, B Routine 10/04/2023 8:15 PM POWDERED SUGAR PULVERIZER OPERATOR PATIENT STATUS Timed 10/04/2023 7:54 PM POWDERED SUGAR PULVERIZER OPERATOR ABG W/COOX Timed 10/04/2023 7:54 PM POWDERED SUGAR PULVERIZER OPERATOR LACTATE, B/P Timed 10/04/2023 7:53 PM POWDERED SUGAR PULVERIZER OPERATOR URINALYSIS, DIPSTICK Routine 10/04/2023 6:39 PM POWDERED SUGAR PULVERIZER OPERATOR GLUCOSE POCT, B Routine 10/04/2023 6:32 PM POWDERED SUGAR PULVERIZER OPERATOR TROPONIN T, 2H/6H, 5TH GEN, P Timed 10/04/2023 5:57 PM POWDERED SUGAR PULVERIZER OPERATOR DX CHEST PORTABLE 1 VIEW RAD - Routine (most inpatients and all outpatients) 10/04/2023 5:42 PM POWDERED SUGAR PULVERIZER OPERATOR GLUCOSE POCT, B Routine 10/04/2023 5:01 PM POWDERED SUGAR PULVERIZER OPERATOR AIRWAY CARE Routine 10/04/2023 4:31 PM POWDERED SUGAR PULVERIZER OPERATOR AIRWAY CARE Routine 10/04/2023 4:31 PM POWDERED SUGAR PULVERIZER OPERATOR AIRWAY CARE Routine 10/04/2023 4:31 PM POWDERED SUGAR PULVERIZER OPERATOR MC ANE CENTRAL LINE GENERIC PERFORMABLE Routine 10/04/2023 4:25 PM POWDERED SUGAR PULVERIZER OPERATOR Peritonitis Acute Generalized (HCC) LDA ANE CENTRAL LINE TRIPLE LUMEN Routine 10/04/2023 4:25 PM POWDERED SUGAR PULVERIZER OPERATOR Peritonitis Acute Generalized (HCC) DE INS NON-JEFRY CVC >5YR Routine 10/04/2023 4:25 PM POWDERED SUGAR PULVERIZER OPERATOR Peritonitis Acute Generalized (HCC) ECG Semiurgent (Fast, most ED patients, some inpatients) 10/04/2023 4:17 PM POWDERED SUGAR PULVERIZER OPERATOR TROPONIN T, BASELINE, 5TH GEN, P STAT 10/04/2023 3:49 PM POWDERED SUGAR PULVERIZER OPERATOR PATIENT STATUS STAT 10/04/2023 3:49 PM POWDERED SUGAR PULVERIZER OPERATOR HEPATIC FUNCTION PANEL, S STAT 10/04/2023 3:49 PM POWDERED SUGAR PULVERIZER OPERATOR ABG W/COOX STAT 10/04/2023 3:49 PM POWDERED SUGAR PULVERIZER OPERATOR PROTHROMBIN TIME (PT), P STAT 10/04/2023 3:49 PM POWDERED SUGAR PULVERIZER OPERATOR CBC WITHOUT DIFFERENTIAL, B STAT 10/04/2023 3:49 PM POWDERED SUGAR PULVERIZER OPERATOR PHOSPHORUS (INORGANIC), S STAT 10/04/2023 3:49 PM POWDERED SUGAR PULVERIZER OPERATOR MAGNESIUM, S STAT 10/04/2023 3:49 PM POWDERED SUGAR PULVERIZER OPERATOR LACTATE, B/P STAT 10/04/2023 3:49 PM POWDERED SUGAR PULVERIZER OPERATOR CALCIUM, IONIZED, S/B STAT 10/04/2023 3:49 PM POWDERED SUGAR PULVERIZER OPERATOR BASIC METABOLIC PANEL, S/P STAT 10/04/2023 3:49 PM POWDERED SUGAR PULVERIZER OPERATOR DX CHEST PORTABLE 1 VIEW RAD - Emergent (Fastest; for the most critically ill patients) 10/04/2023 3:44 PM POWDERED SUGAR PULVERIZER OPERATOR MECHANICAL VENTILATOR Routine 10/04/2023 3:41 PM POWDERED SUGAR PULVERIZER OPERATOR MECHANICAL VENTILATOR Routine 10/04/2023 3:41 PM POWDERED SUGAR PULVERIZER OPERATOR MECHANICAL VENTILATOR Routine 10/04/2023 3:41 PM POWDERED SUGAR PULVERIZER OPERATOR MECHANICAL VENTILATOR Routine 10/04/2023 3:41 PM POWDERED SUGAR PULVERIZER OPERATOR MECHANICAL VENTILATOR Routine 10/04/2023 3:41 PM POWDERED SUGAR PULVERIZER OPERATOR MECHANICAL VENTILATOR Routine 10/04/2023 3:41 PM POWDERED SUGAR PULVERIZER OPERATOR THROMBOELASTOGRAPH, KAOLIN, B STAT 10/04/2023 2:58 PM POWDERED SUGAR PULVERIZER OPERATOR TRANSFUSE RED BLOOD CELLS Routine 10/04/2023 2:33 PM POWDERED SUGAR PULVERIZER OPERATOR SODIUM, B STAT 10/04/2023 2:00 PM POWDERED SUGAR PULVERIZER OPERATOR ABG W/COOX STAT 10/04/2023 2:00 PM POWDERED SUGAR PULVERIZER OPERATOR POTASSIUM, B STAT 10/04/2023 2:00 PM POWDERED SUGAR PULVERIZER OPERATOR GLUCOSE, WHOLE BLOOD STAT 10/04/2023 2:00 PM POWDERED SUGAR PULVERIZER OPERATOR CALCIUM, IONIZED, S/B STAT 10/04/2023 2:00 PM POWDERED SUGAR PULVERIZER OPERATOR ADULT OXYGEN THERAPY Routine 10/04/2023 12:05 PM POWDERED SUGAR PULVERIZER OPERATOR CRITICAL CARE Routine 10/04/2023 10:29 AM POWDERED SUGAR PULVERIZER OPERATOR CT ABDOMEN PELVIS WITH IV CONTRAST RAD - Semiurgent (Fast; most ED patients; some inpatients) 10/04/2023 9:56 AM POWDERED SUGAR PULVERIZER OPERATOR BACTERIA / OJEL CULTURE, BLOOD STAT 10/04/2023 8:50 AM POWDERED SUGAR PULVERIZER OPERATOR LACTATE FOR SEPSIS WITH REFLEX, POCT STAT 10/04/2023 8:41 AM POWDERED SUGAR PULVERIZER OPERATOR HEPATIC FUNCTION PANEL, S STAT 10/04/2023 8:41 AM POWDERED SUGAR PULVERIZER OPERATOR BACTERIA / JOEL CULTURE, BLOOD STAT 10/04/2023 8:41 AM POWDERED SUGAR PULVERIZER OPERATOR PROTHROMBIN TIME (PT), P STAT 10/04/2023 8:41 AM POWDERED SUGAR PULVERIZER OPERATOR CBC WITH DIFFERENTIAL, B STAT 10/04/2023 8:41 AM POWDERED SUGAR PULVERIZER OPERATOR MAGNESIUM, S STAT 10/04/2023 8:41 AM POWDERED SUGAR PULVERIZER OPERATOR LIPASE, S/P STAT 10/04/2023 8:41 AM POWDERED SUGAR PULVERIZER OPERATOR BASIC METABOLIC PANEL, S/P STAT 10/04/2023 8:41 AM POWDERED SUGAR PULVERIZER OPERATOR ECG STAT 10/04/2023 8:16 AM POWDERED SUGAR PULVERIZER OPERATOR PREPARE RED BLOOD CELLS Routine 10/02/2023 5:51 AM POWDERED SUGAR PULVERIZER OPERATOR PREPARE RED BLOOD CELLS STAT 10/02/2023 5:51 AM POWDERED SUGAR PULVERIZER OPERATOR documented in this encounter Results * Patient Status (10/05/2023 12:01 PM POWDERED SUGAR PULVERIZER OPERATOR) FIO2 0.30 0.21=AIR 10/05/2023 12: 06 PM POWDERED SUGAR PULVERIZER OPERATOR STMA Device Vent 10/05/2023 12: 06 PM POWDERED SUGAR PULVERIZER OPERATOR STMA Blood 10/05/2023 12:0 1 PM POWDERED SUGAR PULVERIZER OPERATOR 10/05/2023 12:06 PM POWDERED SUGAR PULVERIZER OPERATOR Zulma Garcia M.D. LAB BLOOD NON ADD-ON Performing Organization Address City/State/[facility] Co de Phone Number [facility] [address] [place], [place] [phone] [place] [address] 200 [place] [address] * Lactate, Whole Blood (10/05/2023 12:01 PM POWDERED SUGAR PULVERIZER OPERATOR) Pathologist [facility] Lactate, B 1.7 0.5 - 2.2 mmol/L 10/05/2023 12:15 PM POWDERED SUGAR PULVERIZER OPERATOR STMA Blood (Blood, Arterial) 10/05/2023 12:01 PM POWDERED SUGAR PULVERIZER OPERATOR 10/05/2023 12:06 PM POWDERED SUGAR PULVERIZER OPERATOR Zulma Garcia M.D. LAB BLOOD NON ADD-ON Performing Organization Address City/[facility] Co de Phone Number [facility] [address] [place], [place] [phone] [place] [address] 200 [place] [address] * (ABNORMAL) Blood Gas with Coox, Arterial (10/05/2023 12:01 PM POWDERED SUGAR PULVERIZER OPERATOR) Pathologist [facility] pO2 128(H) 83 - 108 mm Hg 10/05/2023 12:15 PM POWDERED SUGAR PULVERIZER OPERATOR STMA pCO2 32(L) 35 - 48 mm Hg 10/05/2023 12:15 PM POWDERED SUGAR PULVERIZER OPERATOR STMA pH 7.36 7.35 - 7.45 pH 10/05/2023 12:15 PM POWDERED SUGAR PULVERIZER OPERATOR STMA Base Excess -8(L) -2 - 3 mmol/L 10/05/2023 12:15 PM POWDERED SUGAR PULVERIZER OPERATOR STMA HCO3 18(L) 22 - 26 mmol/L 10/05/2023 12:15 PM POWDERED SUGAR PULVERIZER OPERATOR STMA Hemoglobin, Venous 10.1(L) 13.2 - 16.6 g/dL 10/05/2023 12:15 PM POWDERED SUGAR PULVERIZER OPERATOR STMA O2Hb 97.1 94.0 - 98.0 % 10/05/2023 12:15 PM POWDERED [employer]UL[employer]ER OPERATOR [facility] COHb 3.0(H) <3.0 % 10/05/2023 12:15 PM POWDERED [employer]UL[employer]ER OPERATOR [facility] MetHb <1.0 <1.5 % 10/05/2023 12:15 PM POWDERED [employer]UL[employer]ER OPERATOR [facility] CtO2 14.0(L) 18.0 - 21.0 vol % 10/05/2023 12:15 PM POW[employer]ED [employer]ER OPERATOR [facility] Arterial Sample Site Art Line 10/05/2023 12:15 PM [employer]OW[employer]ED [employer] [facility]PERATOR [facility]:Shai's test not don e. Blood (Blood, Arterial) 10/05/2023 12:01 PM P[employer]ED [employer]ULVER[employer]ER OPERATOR 10/05/2023 12:06 PM [employer]ED [employer] OPERATOR Zulma Garcia M.D. LAB BLOOD NON ADD-ON [facility] [address] [place] [address], [facility] [address] [place] [address] * (ABNORMAL) Glucose, POCT (10/05/2023 11:45 AM POWDERED [employer]ULVER[employer]ER OPERATOR) Glucose, POCT, B 157(H) 70 - 140 mg/dL 10/05/2023 11:47 AM POWDERED [employer]ULVER[employer]ER OPERATOR PCLX Site ARTLINE 10/05/2023 11:47 AM POWDERED [employer] PULVER[employer]ER OPERATOR PCLX Last Intake NPO 10/05/2023 11:47 AM POWDERED [employer]ER OPERATOR PCLX Blood 10/05/2023 11:4 5 AM [employer]UL[employer]ER OPERATOR 10/05/2023 11:48 AM POWDERED [employer]ULVER[employer]ER OPERATOR Unknown Provider LAB POCT ORDERABLES- MANUAL Performing Organization Address City/[facility] Co de Phone Number [facility]OC [facility] [address] [place] [address], [facility] PCLX [facility] POC [address] [place] [address] * Transfuse Red Blood Cells : (10/05/2023 11:28 AM POWDERED SUGAR PULVERIZER OPERATOR) Daniel Pace D.O., M.S. BLOOD TRANSFU APRIL ORDERABLES * Transfuse Red Blood Cells : , 2 Units (10/05/2023 11:28 AM POWDERED SUGAR PULVERIZER OPERATOR) Daniel Pace D.O., M.S. BLOOD TRANSFU APRIL ORDERABLES * Glucose, POCT (10/05/2023 7:21 AM POWDERED SUGAR PULVERIZER OPERATOR) Glucose, POCT, B 135 70 - 140 mg/dL 10/05/2023 7:24 AM POWDERED SUGAR PULVERIZER OPERATOR PCLX Site ARTLINE 10/05/2023 7:24 AM POWDERED SUGAR PULVERIZER OPERATOR PCLX Last Intake NPO 10/05/2023 7:24 AM POWDERED SUGAR PULVERIZER OPERATOR PCLX Blood 10/05/2023 7:21 AM POWDERED SUGAR PULVERIZER OPERATOR 10/05/2023 7:24 AM POWDERED SUGAR PULVERIZER OPERATOR Unknown Provider LAB POCT ORDERABLES- MANUAL POC [facility] [address] [place] [address], [facility] POC [address] [place] [address] * Heparin Anti-Xa Assay (10/05/2023 7:21 AM POWDERED SUGAR PULVERIZER OPERATOR) [facility] Heparin Anti-Xa, P 0.24 IU/mL 2023 8:48 AM POWDERED SUGAR PULVERIZER OPERATOR DT Comment: UFH therapeutic range: ?? 0.30-0.70 [...] (UFH). Blood (Blood, Venous) 10/05/2023 7:21 AM POWDERED SUGAR PULVERIZER OPERATOR 10/05/2023 7:44 AM POWDERED SUGAR PULVERIZER OPERATOR Kimberley Sierra APRN, C.N.P., D.N.P. LAB BLOOD NON ADD-ON [facility] [address] [place] [address], [facility] [address] [place] [address] * Glucose, POCT (10/05/2023 6:15 AM POWDERED SUGAR PULVERIZER OPERATOR) Glucose, POCT, B 120 70 - 140 mg/dL 10/05/2023 6:17 AM POWDERED SUGAR PULVERIZER OPERATOR PCLX Blood 10/05/2023 6:15 AM POWDERED SUGAR PULVERIZER OPERATOR 10/05/2023 6:17 AM POWDERED SUGAR PULVERIZER OPERATOR Unknown Provider LAB POCT ORDERABLES- MANUAL POC [facility] [address] [place] [address], [facility] PCLX [facility] [address] [place] [address] * DX Chest Portable 1 View (10/05/2023 6:07 AM POWDERED SUGAR PULVERIZER OPERATOR) Anatomical Region Laterality Modality Chest, Thoracic RST LOS, Tho racic ARZ LOS, Thoracic FLA LOS N/A Digital Radiography Impressions 10/05/2023 8:40 AM POWDERED SUGAR PULVERIZER OPERATOR Stable interstitial changes in both lungs since 10/04/2023. This could be due to fibrosis/edema. ET and enteric tubes. Right central line extends superiorly into the neck as previously. Right IJ port catheter tip near the SVC/RA junction. Degenerative changes thoracic spine. Aortic calcification. Narrative 10/05/2023 8:40 AM POWDERED SUGAR PULVERIZER OPERATOR EXAM: ??DX CHEST PORTABLE 1 VIEW Procedure [...] PROCEDURES * Glucose, POCT (10/05/2023 5:02 AM POWDERED SUGAR PULVERIZER OPERATOR) Glucose, POCT, B 116 70 - 140 mg/dL 10/05/2023 5:04 AM POWDERED SUGAR PULVERIZER OPERATOR PCLX Site ARTLINE 10/05/2023 5:04 AM POWDERED SUGAR PULVERIZER OPERATOR PCLX Blood 10/05/2023 5:02 AM POWDERED SUGAR PULVERIZER OPERATOR 10/05/2023 5:04 AM POWDERED SUGAR PULVERIZER OPERATOR Unknown Provider LAB POCT ORDERABLES- MANUAL POC [facility] [address] [place] [address], [facility] PCLX [facility] POC [address] [place] [address] * (ABNORMAL) Calcium, Ionized (10/05/2023 4:28 AM POWDERED SUGAR PULVERIZER OPERATOR) Calcium, Ionized, B 4.56(L) 4.65 - 5.30 mg/dL 10/05/2023 4:51 AM POWDERED SUGAR PULVERIZER OPERATOR STMA Blood 10/05/2023 4:28 AM POWDERED SUGAR PULVERIZER OPERATOR 10/05/2023 4:34 AM POWDERED SUGAR PULVERIZER OPERATOR Kimberley Sierra APRN, Lola.N.P., D.N.P. LAB BLOOD NON ADD-ON [facility] [address] [place], [place] [address] [address] [place] [address] * Patient Status (10/05/2023 4:28 AM POWDERED SUGAR PULVERIZER OPERATOR) FIO2 0.30 0.21=AIR 10/05/2023 4:3 4 AM POWDERED SUGAR PULVERIZER OPERATOR STMA Device Vent 10/05/2023 4:3 4 AM POWDERED SUGAR PULVERIZER OPERATOR STMA Blood 10/05/2023 4:28 AM POWDERED SUGAR PULVERIZER OPERATOR 10/05/2023 4:34 AM POWDERED SUGAR PULVERIZER OPERATOR Kimberley Sierra APRN, C.N.P., D.N.P. LAB BLOOD NON ADD-ON [facility] [address] [place], [place] [id number] [place] [address] [address] [place] [address] * (ABNORMAL) Blood Gas with Coox, Arterial (10/05/2023 4:28 AM POWDERED SUGAR PULVERIZER OPERATOR) pO2 139(H) 83 - 108 mm Hg 10/05/2023 4:51 AM POWDERED SUGAR PULVERIZER OPERATOR STMA pCO2 34(L) 35 - 48 mm Hg 10/05/2023 4:51 AM POWDERED SUGAR PULVERIZER OPERATOR ST[facility] pH 7.34(L) 7.35 - 7.45 pH 10/05/2023 4:51 AM POWDERED SUGAR PULVERIZER OPERATOR STMA Base Excess -8(L) -2 - 3 mmol/L 10/05/2023 4:51 AM POWDERED SUGAR PULVERIZER OPERATOR STMA HCO3 18(L) 22 - 26 mmol/L 10/05/2023 4:51 AM POWDERED SUGAR PULVERIZER OPERATOR STMA Hemoglobin, Venous 8.8(L) 13.2 - 16.6 g/dL 10/05/2023 4:51 AM POWDERED SUGAR PULVERIZER OPERATOR STMA O2Hb 97.1 94.0 - 98.0 % 10/05/2023 4:51 AM POWDERED SUGAR PULVERIZER OPERATOR STMA COHb 2.6 <3.0 % 10/05/2023 4:51 AM POWDERED SUGAR PULVERIZER OPERATOR STMA MetHb <1.0 <1.5 % 10/05/2023 4:51 AM POWDERED SUGAR PULVERIZER OPERATOR ST[facility] CtO2 12.4(L) 18.0 - 21.0 vol % 10/05/2023 4:51 AM POWDERED SUGAR PULVERIZER OPERATOR STMA Arterial Sample Site Art Line 10/05/2023 4:51 AM POWDERED SUGAR PULVERIZER OPERATOR STMA Comment:Shai's test not don e. Blood (Blood, Arterial) 10/05/2023 4:28 AM POWDERED SUGAR PULVERIZER OPERATOR 10/05/2023 4:34 AM POWDERED SUGAR PULVERIZER OPERATOR Kimberley Sierra APRN, C.N.P., D.N.P. LAB BLOOD NON ADD-ON [facility] [address] [place] [address], [facility] [address] [place] [address] * (ABNORMAL) CBC without Differential (10/05/2023 4:27 AM POWDERED SUGAR PULVERIZER OPERATOR) Hemoglobin 8.7(L) 13.2 - 16.6 g/dL 10/05/2023 5:31 AM POWDERED SUGAR PULVERIZER OPERATOR DTL Hematocrit 25.8(L) 38.3 - 48.6 % 10/05/2023 5:31 AM POWDERED SUGAR PULVERIZER OPERATOR DTL Erythrocytes 2.80(L) 4.35 - 5.65 x10(12)/L 10/05/2023 5:31 AM POWDERED SUGAR PULVERIZER OPERATOR DTL MCV 92.1 78.2 - 97.9 fL 10/05/2023 5:31 AM POWDERED SUGAR PULVERIZER OPERATOR DTL RBC Distrib Width 16.7(H) 11.8 - 14.5 % 10/05/2023 5:31 AM POWDERED SUGAR PULVERIZER OPERATOR DTL Platelet Count 165 135 - 317 x10(9)/L 10/05/2023 5:31 AM POWDERED SUGAR PULVERIZER OPERATOR DTL Leukocytes 6.0 3.4 - 9.6 x10(9)/L 10/05/2023 5:31 AM POWDERED SUGAR PULVERIZER OPERATOR DTL Blood (Blood, Venous) 10/05/2023 4:27 AM POWDERED SUGAR PULVERIZER OPERATOR 10/05/2023 5:22 AM POWDERED SUGAR PULVERIZER OPERATOR Daniel Pace D.O., M.S. LAB BLOOD ADD -ON Performing Organization Address City/[facility]/ZIP Co de Phone Number [facility] [address] DTL [facility] [address] [place] [address] * (ABNORMAL) Lactate (10/05/2023 4:27 AM POWDERED SUGAR PULVERIZER OPERATOR) Lactate, P 3.5(H) 0.5 - 2.2 mmol/L 10/05/2023 4:46 AM POWDERED SUGAR PULVERIZER OPERATOR STMA Blood (Blood, Venous) 10/05/2023 4:27 AM POWDERED SUGAR PULVERIZER OPERATOR 10/05/2023 4:34 AM POWDERED SUGAR PULVERIZER OPERATOR Kimberley Sierra APRN, C.N.P., D.N.P. LAB BLOOD NON ADD-ON Performing Organization Address City/[facility]/ZIP Co de Phone Number [facility] [address] STMA [facility] 200 [place] [address] * Cystatin C with Estimated GFR (10/05/2023 4:27 AM POWDERED SUGAR PULVERIZER OPERATOR) eGFR by Cystatin C 74 >60 mL/min/BSA 10/05/2023 5:54 AM POWDERED SUGAR PULVERIZER OPERATOR DTL Comment: Estimated GFR calculated using the [...] 0.67 - 1.21 mg/L 10/05/2023 5:54 AM POWDERED SUGAR PULVERIZER OPERATOR DTL Blood (Blood, Venous) 10/05/2023 4:27 AM POWDERED SUGAR PULVERIZER OPERATOR 10/05/2023 5:35 AM POWDERED SUGAR PULVERIZER OPERATOR Kimberley Sierra APRN, C.N.P., D.N.P. LAB BLOOD ADD-ON Performing Organization Address City/[facility]/ZIP Co de Phone Number [facility] [address] [place] [address], [facility] [address] [place] [address] * Phosphorus Inorganic (10/05/2023 4:27 AM POWDERED SUGAR PULVERIZER OPERATOR) Pathologist [facility] Phosphorus (Inorganic), S 3.8 2.5 - 4.5 mg/dL 10/05/2023 5:54 AM POWDERED SUGAR PULVERIZER OPERATOR DTL Blood (Blood, Venous) 10/05/2023 4:27 AM POWDERED SUGAR PULVERIZER OPERATOR 10/05/2023 5:35 AM POWDERED SUGAR PULVERIZER OPERATOR Kimberley Sierra APRN, C.N.P., D.N.P. LAB BLOOD ADD-ON [facility] [address] [facility] [address] [place] [address] * Magnesium (10/05/2023 4:27 AM POWDERED SUGAR PULVERIZER OPERATOR) Magnesium, S 1.8 1.7 - 2.3 mg/dL 10/05/2023 5:54 AM POWDERED SUGAR PULVERIZER OPERATOR DTL Blood (Blood, Venous) 10/05/2023 4:27 AM POWDERED SUGAR PULVERIZER OPERATOR 10/05/2023 5:35 AM POWDERED SUGAR PULVERIZER OPERATOR Lola Teague APRN.N.P., D.N.P. LAB BLOOD ADD-ON [facility] [address] [place] [address], [facility] [address] [place] [address] * (ABNORMAL) Basic Metabolic Panel (10/05/2023 4:27 AM POWDERED SUGAR PULVERIZER OPERATOR) Potassium, S 4.1 3.6 - 5.2 mmol/L 10/05/2023 5:54 AM POWDERED SUGAR PULVERIZER OPERATOR DTL Sodium, S 136 135 - 145 mmol/L 10/05/2023 5:54 AM POWDERED SUGAR PULVERIZER OPERATOR DTL Chloride, S 107 98 - 107 mmol/L 10/05/2023 5:54 AM POWDERED SUGAR PULVERIZER OPERATOR DTL Bicarbonate, S 16(L) 22 - 29 mmol/L 10/05/2023 5:54 AM POWDERED SUGAR PULVERIZER OPERATOR DTL Anion Gap 13 7 - 15 10/05/2023 5:54 AM POWDERED SUGAR PULVERIZER OPERATOR DTL BUN (Blood Urea Nitrogen), S 27(H) 8 - 24 mg/dL 10/05/2023 5:54 AM POWDERED SUGAR PULVERIZER OPERATOR DTL Creatinine 0.81 0.74 - 1.35 mg/dL 10/05/2023 5:54 AM POWDERED SUGAR PULVERIZER OPERATOR DTL Estimated GFR (eGFR) >90 >=60 mL/min/BSA 10/05/2023 5:54 AM POWDERED SUGAR PULVERIZER OPERATOR DTL Comment: Estimated GFR calculated using the 2020 CKD_EPI creatinine equation. Calcium, Total, S 7.2(L) 8.8 - 10.2 mg/dL 10/05/2023 5:54 AM POWDERED SUGAR PULVERIZER OPERATOR DTL Glucose, S 112 70 - 140 mg/dL 10/05/2023 5:54 AM POWDERED SUGAR PULVERIZER OPERATOR DTL Blood (Blood, Venous) 10/05/2023 4:27 AM POWDERED SUGAR PULVERIZER OPERATOR 10/05/2023 5:35 AM POWDERED SUGAR PULVERIZER OPERATOR Eliecer Teague APRNNGovind, D.N.P. LAB BLOOD ADD-ON [facility] [address] [place] [address], [facility] DTL [facility] [address] [place] [address] * Transfuse Red Blood Cells : (10/05/2023 4:21 AM POWDERED SUGAR PULVERIZER OPERATOR) Daniel Pace D.O. MJohannaSJohanna BLOOD TRANSFU APRIL ORDERABLES * Glucose, POCT (10/05/2023 4:12 AM POWDERED SUGAR PULVERIZER OPERATOR) Glucose, POCT, B 121 70 - 140 mg/dL 10/05/2023 4:15 AM POWDERED SUGAR PULVERIZER OPERATOR PCLX Site ARTLINE 10/05/2023 4:15 AM POWDERED SUGAR PULVERIZER OPERATOR PCLX Blood 10/05/2023 4:12 AM POWDERED SUGAR PULVERIZER OPERATOR 10/05/2023 4:15 AM POWDERED SUGAR PULVERIZER OPERATOR Unknown Provider LAB POCT ORDERABLES- MANUAL Performing Organization Address City/[facility]/ZIP Co de Phone Number POC [facility] [address] [place] [address], [facility] PCLX [facility] POC [address] [place] [address] * Glucose, POCT (10/05/2023 3:15 AM POWDERED SUGAR PULVERIZER OPERATOR) Glucose, POCT, B 129 70 - 140 mg/dL 10/05/2023 3:16 AM POWDERED SUGAR PULVERIZER OPERATOR PCLX Blood 10/05/2023 3:15 AM POWDERED SUGAR PULVERIZER OPERATOR 10/05/2023 3:16 AM POWDERED SUGAR PULVERIZER OPERATOR Unknown Provider LAB POCT ORDERABLES- MANUAL POC [facility] [address] [place] [address], [place] PCLX [facility] POC [address] [place] [address] * Glucose, POCT (10/05/2023 2:10 AM POWDERED SUGAR PULVERIZER OPERATOR) Glucose, POCT, B 132 70 - 140 mg/dL 10/05/2023 2:12 AM POWDERED SUGAR PULVERIZER OPERATOR PCLX Site ARTLINE 10/05/2023 2:12 AM POWDERED SUGAR PULVERIZER OPERATOR PCLX Blood 10/05/2023 2:10 AM POWDERED SUGAR PULVERIZER OPERATOR 10/05/2023 2:13 AM POWDERED SUGAR PULVERIZER OPERATOR Unknown Provider LAB POCT ORDERABLES- MANUAL POC [facility] [address] [place] [address], [facility] PCLX [facility] POC [address] [place] [address] * Patient Status (10/05/2023 12:52 AM POWDERED SUGAR PULVERIZER OPERATOR) Temperature 37.2 37.0 deg C 10/05/2023 12:52 AM POWDERED SUGAR PULVERIZER OPERATOR STMA FIO2 0.50 0.21=AIR 10/05/2023 12:52 AM POWDERED SUGAR PULVERIZER OPERATOR STMA Blood 10/05/2023 12:5 2 AM POWDERED SUGAR PULVERIZER OPERATOR 10/05/2023 12:52 AM POWDERED SUGAR PULVERIZER OPERATOR Kayla Spencer M.D. LAB BLOOD NON ADD-ON Performing Organization Address City/[facility]/ZIP Co de Phone Number [facility] [address] [place] [address], [facility] STMA [facility] [address] [place] [address] * Lactate, B - Intra-op (10/05/2023 12:52 AM POWDERED SUGAR PULVERIZER OPERATOR) Lactate, B 2.0 0.5 - 2.2 mmol/L 10/05/2023 12:59 AM POWDERED SUGAR PULVERIZER OPERATOR STMA Blood (Blood, Venous) 10/05/2023 12:52 AM POWDERED SUGAR PULVERIZER OPERATOR 10/05/2023 12:52 AM POWDERED SUGAR PULVERIZER OPERATOR Carolee Ferguson M.D. LAB BLOOD NON ADD-ON [facility] [address] [place], [place] [address] [place] [address] [address] [place] [address] * Glucose, Whole Blood (10/05/2023 12:52 AM POWDERED SUGAR PULVERIZER OPERATOR) Glucose 117 70 - 140 mg/dL 10/05/2023 12:59 AM POWDERED SUGAR PULVERIZER OPERATOR [facility] Blood (Blood, Arterial Line) 10/05/2023 12:52 AM POWDERED SUGAR PULVERIZER OPERATOR 10/05/2023 12:52 AM POWDERED SUGAR PULVERIZER OPERATOR Carolee Ferguson M.D. LAB BLOOD ADD-ON [facility] [address] [place], [place] [id number] [place] [address] [address] [place] [address] * (ABNORMAL) Potassium, Blood (10/05/2023 12:52 AM POWDERED SUGAR PULVERIZER OPERATOR) Potassium, B 3.5(L) 3.6 - 5.2 mmol/L 10/05/2023 12:59 AM POWDERED SUGAR PULVERIZER OPERATOR [facility] Blood (Blood, Arterial Line) 10/05/2023 12:52 AM POWDERED SUGAR PULVERIZER OPERATOR 10/05/2023 12:52 AM POWDERED SUGAR PULVERIZER OPERATOR Carolee Ferguson M.D. LAB BLOOD NON ADD-ON [facility] [address] [place], [place] [phone] [place] [address] [address] [place] [address] * Sodium, B (10/05/2023 12:52 AM POWDERED SUGAR PULVERIZER OPERATOR) Sodium, B 136 135 - 145 mmol/L 10/05/2023 12:59 AM POWDERED SUGAR PULVERIZER OPERATOR STMA Blood (Blood, Arterial Line) 10/05/2023 12:52 AM POWDERED SUGAR PULVERIZER OPERATOR 10/05/2023 12:52 AM POWDERED SUGAR PULVERIZER OPERATOR Carolee Ferguson M.D. LAB BLOOD NON ADD-ON [facility] [address] [place], [place] [phone] [place] [address] [address] [place] [address] * Calcium, Ionized (10/05/2023 12:52 AM POWDERED SUGAR PULVERIZER OPERATOR) Calcium, Ionized, B 4.74 4.65 - 5.30 mg/dL 10/05/2023 12:59 AM POWDERED SUGAR PULVERIZER OPERATOR STMA Blood (Blood, Arterial Line) 10/05/2023 12:52 AM POWDERED SUGAR PULVERIZER OPERATOR 10/05/2023 12:52 AM POWDERED SUGAR PULVERIZER OPERATOR Carolee Ferguson M.D. LAB BLOOD NON ADD-ON Performing Organization Address [facility] Co de Phone Number [facility] [address] [place] [address], [facility] [address] [place] [address] * (ABNORMAL) Blood Gas with Coox, Arterial (10/05/2023 12:52 AM POWDERED SUGAR PULVERIZER OPERATOR) pO2 167(H) 83 - 108 mm Hg 10/05/2023 12:59 AM POWDERED SUGAR PULVERIZER OPERATOR STMA pCO2 30(L) 35 - 48 mm Hg 10/05/2023 12:59 AM POWDERED SUGAR PULVERIZER OPERATOR STMA pH 7.39 7.35 - 7.45 pH 10/05/2023 12:59 AM POWDERED SUGAR PULVERIZER OPERATOR STMA Base Excess -7(L) -2 - 3 mmol/L 10/05/2023 12:59 AM POWDERED SUGAR PULVERIZER OPERATOR STMA HCO3 19(L) 22 - 26 mmol/L 10/05/2023 12:59 AM POWDERED SUGAR PULVERIZER OPERATOR STMA Hemoglobin, Venous 8.2(L) 13.2 - 16.6 g/dL 10/05/2023 12:59 AM POWDERED SUGAR PULVERIZER OPERATOR STMA O2Hb 97.6 94.0 - 98.0 % 10/05/2023 12:59 AM POWDERED SUGAR PULVERIZER OPERATOR STMA COHb 2.6 <3.0 % 10/05/2023 12:59 AM POWDERED SUGAR PULVERIZER OPERATOR STMA MetHb <1.0 <1.5 % 10/05/2023 12:59 AM POWDERED SUGAR PULVERIZER OPERATOR STMA CtO2 11.6(L) 18.0 - 21.0 vol % 10/05/2023 12:59 AM POWDERED SUGAR PULVERIZER OPERATOR STMA Blood (Blood, Arterial Line) 10/05/2023 12:52 AM POWDERED SUGAR PULVERIZER OPERATOR 10/05/2023 12:52 AM POWDERED SUGAR PULVERIZER OPERATOR Carolee Ferguson M.D. LAB BLOOD NON ADD-ON [facility] [address] [place] [address], [facility] STMA [facility] [address] [place] [address] * Glucose, POCT (10/05/2023 12:02 AM POWDERED SUGAR PULVERIZER OPERATOR) Glucose, POCT, B 85 70 - 140 mg/dL 10/05/2023 12:04 AM POWDERED SUGAR PULVERIZER OPERATOR PCLX Site ARTLINE 10/05/2023 12:04 AM POWDERED SUGAR PULVERIZER OPERATOR PCLX Blood 10/05/2023 12:0 2 AM POWDERED SUGAR PULVERIZER OPERATOR 10/05/2023 12:04 AM POWDERED SUGAR PULVERIZER OPERATOR Unknown Provider LAB POCT ORDERABLES- MANUAL POC [facility] [address] [place] [address], [facility] PCLX [facility] POC [address] [place] [address] * Glucose, POCT (10/04/2023 11:19 PM POWDERED SUGAR PULVERIZER OPERATOR) Glucose, POCT, B 117 70 - 140 mg/dL 10/04/2023 11:20 PM POWDERED SUGAR PULVERIZER OPERATOR PCLX Site ARTLINE 10/04/2023 11:20 PM POWDERED SUGAR PULVERIZER OPERATOR PCLX Blood 10/04/2023 11:1 9 PM POWDERED SUGAR PULVERIZER OPERATOR 10/04/2023 11:21 PM POWDERED SUGAR PULVERIZER OPERATOR Unknown Provider LAB POCT ORDERABLES- MANUAL POC [facility] [address] [place] [address], [facility] PCLX [facility] POC [address] [place] [address] * APTT (Activated Partial Thromboplastin Time) (10/04/2023 10:08 PM POWDERED SUGAR PULVERIZER OPERATOR) Activated Partial Thrombopl Time, P 27 25 - 37 sec 10/04/2023 10:23 PM POWDERED SUGAR PULVERIZER OPERATOR STMA Blood (Blood, Venous) 10/04/2023 10:08 PM POWDERED SUGAR PULVERIZER OPERATOR 10/04/2023 10:23 PM POWDERED SUGAR PULVERIZER OPERATOR Lola Teague APRN.N.P., D.N.P. LAB BLOOD ADD-ON [facility] [address] [place] [address], [facility] STMA [facility] [address] [place] [address] * Glucose, POCT (10/04/2023 10:07 PM POWDERED SUGAR PULVERIZER OPERATOR) Pathologist [facility] Glucose, POCT, B 113 70 - 140 mg/dL 10/04/2023 10:09 PM POWDERED SUGAR PULVERIZER OPERATOR PCLX Site ARTLINE 10/04/2023 10:09 PM POWDERED SUGAR PULVERIZER OPERATOR PCLX Blood 10/04/2023 10:0 7 PM POWDERED SUGAR PULVERIZER OPERATOR 10/04/2023 10:10 PM POWDERED SUGAR PULVERIZER OPERATOR Unknown Provider LAB POCT ORDERABLES- MANUAL Performing Organization Address City/[facility]/ZIP Co de Phone Number POC [facility] [address] [place] [address], [facility] PCLX [facility] [address] [place] [address] * (ABNORMAL) Basic Metabolic Panel (10/04/2023 10:03 PM POWDERED SUGAR PULVERIZER OPERATOR) Potassium, P 3.8 3.6 - 5.2 mmol/L 10/04/2023 10:28 PM POWDERED SUGAR PULVERIZER OPERATOR STMA Sodium, P 135 135 - 145 mmol/L 10/04/2023 10:28 PM POWDERED SUGAR PULVERIZER OPERATOR STMA Chloride, P 105 98 - 107 mmol/L 10/04/2023 10:28 PM POWDERED SUGAR PULVERIZER OPERATOR STMA Bicarbonate, P 17(L) 22 - 29 mmol/L 10/04/2023 10:28 PM POWDERED SUGAR PULVERIZER OPERATOR STMA Anion Gap, P 13 7 - 15 10/04/2023 10:28 PM POWDERED SUGAR PULVERIZER OPERATOR STMA BUN (Blood Urea Nitrogen), P 27(H) 8 - 24 mg/dL 10/04/2023 10:28 PM POWDERED SUGAR PULVERIZER OPERATOR STMA Creatinine 0.70(L) 0.74 - 1.35 mg/dL 10/04/2023 10:28 PM POWDERED SUGAR PULVERIZER OPERATOR STMA Estimated GFR (eGFR) >90 >=60 mL/min/BSA 10/04/2023 10:28 PM POWDERED SUGAR PULVERIZER OPERATOR STMA Comment: Estimated GFR calculated using the 2020 CKD_EPI creatinine equation. Calcium, Total, P 8.0(L) 8.8 - 10.2 mg/dL 10/04/2023 10:28 PM POWDERED SUGAR PULVERIZER OPERATOR STMA Glucose, P 125 70 - 140 mg/dL 10/04/2023 10:28 PM POWDERED SUGAR PULVERIZER OPERATOR STMA Blood (Blood, Venous) 10/04/2023 10:03 PM POWDERED SUGAR PULVERIZER OPERATOR 10/04/2023 10:13 PM POWDERED SUGAR PULVERIZER OPERATOR Daniel Pace D.O., M.S. LAB BLOOD ADD -ON [facility] [address] [place] [address], [facility] [address] [place] [address] * (ABNORMAL) CBC without Differential (10/04/2023 10:03 PM POWDERED SUGAR PULVERIZER OPERATOR) Hemoglobin 8.6(L) 13.2 - 16.6 g/dL 10/04/2023 10:16 PM POWDERED SUGAR PULVERIZER OPERATOR STMA Hematocrit 26.8(L) 38.3 - 48.6 % 10/04/2023 10:16 PM POWDERED SUGAR PULVERIZER OPERATOR STMA Erythrocytes 2.90(L) 4.35 - 5.65 x10(12)/L 10/04/2023 10:16 PM POWDERED SUGAR PULVERIZER OPERATOR STMA MCV 92.4 78.2 - 97.9 fL 10/04/2023 10:16 PM POWDERED SUGAR PULVERIZER OPERATOR STMA RBC Distrib Width 16.9(H) 11.8 - 14.5 % 10/04/2023 10:16 PM POWDERED SUGAR PULVERIZER OPERATOR STMA Platelet Count 166 135 - 317 x10(9)/L 10/04/2023 10:16 PM POWDERED SUGAR PULVERIZER OPERATOR [facility] Leukocytes 3.2(L) 3.4 - 9.6 x10(9)/L 10/04/2023 11:15 PM POWDERED SUGAR PULVERIZER OPERATOR [facility] Blood (Blood, Venous) 10/04/2023 10:03 PM POWDERED SUGAR PULVERIZER OPERATOR 10/04/2023 10:13 PM POWDERED SUGAR PULVERIZER OPERATOR Daniel Pace D.O. MTami LAB BLOOD ADD -ON Performing Organization Address City/[facility]/ZIP Co de Phone Number [facility] [address] [place] [address], [facility] STMA [facility] [address] [place] [address] [facility] [address] [place] [address] * (ABNORMAL) Thromboelastograph, Kaolin, Blood (10/04/2023 9:59 PM POWDERED SUGAR PULVERIZER OPERATOR) R, Kaolin, TEG 6.1 4.0 - 9.0 min 10/04/2023 10:56 PM POWDERED SUGAR PULVERIZER OPERATOR [facility] K, Kaolin, TEG 1.1 1.0 - 1.8 min 10/04/2023 10:56 PM POWDERED SUGAR PULVERIZER OPERATOR [facility] Angle, Kaolin, TEG 74.9 64.0 - 78.1 degrees 10/04/2023 10:56 PM POWDERED SUGAR PULVERIZER OPERATOR [facility] MA, Kaolin, TEG 74.4(H) 57.1 - 72.6 mm 10/04/2023 10:56 PM POWDERED SUGAR PULVERIZER OPERATOR [facility]MA Ly30, Kaolin, TEG 0.2 0.0 - 4.8 % 10/04/2023 10:56 PM POWDERED SUGAR PULVERIZER OPERATOR [facility] Blood (Blood, Venous) 10/04/2023 9:59 PM POWDERED SUGAR PULVERIZER OPERATOR 10/04/2023 10:04 PM POWDERED SUGAR PULVERIZER OPERATOR Daniel Pace D.O. MJohannaSJohanna LAB BLOOD NON ADD-ON [facility] [address] [place] [address], [facility] [address] [place] [address] * Glucose, POCT (10/04/2023 9:03 PM POWDERED SUGAR PULVERIZER OPERATOR) [facility] Glucose, POCT, B 126 70 - 140 mg/dL 10/04/2023 10:09 PM POWDERED SUGAR PULVERIZER OPERATOR PCLX Site ARTLINE 10/04/2023 10:09 PM POWDERED SUGAR PULVERIZER OPERATOR PCL[facility] Blood 10/04/2023 9:03 PM POWDERED SUGAR PULVERIZER OPERATOR 10/04/2023 10:09 PM POWDERED SUGAR PULVERIZER OPERATOR Unknown Provider LAB POCT ORDERABLES- MANUAL POC [facility] [address] [place] [address], [place] PCLX [facility] - [place] [facility] [address] [place] [address] * US Upper Extremity Veins Right (10/04/2023 8:40 PM POWDERED SUGAR PULVERIZER OPERATOR) Anatomical Region Laterality Modality Upper Extremity, Ultrasound RST LOS, Ultrasound ARZ LOS, Ultrasound FLA LOS Right Ultrasound Impressions 10/05/2023 6:33 AM POWDERED SUGAR PULVERIZER OPERATOR 1. Right axillary venous catheter with nonocclusive thrombin cast. 2. 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 3. The right internal jugular, innominate, and subclavian veins were obscured by overlying bandages. Findings were discussed [place] [id number] at 10:00PM on 10/04/2023. Narrative 10/05/2023 6:33 AM POWDERED SUGAR PULVERIZER OPERATOR EXAM: US UPPER EXTREMITY VEINS RIGHT Exam [...] and management can be found on the AskLockryoExpert site. Link [email or web address] Procedure Note Martinez Flowers M.D. - 10/05/2023 [...] thrombosis and management can be found on theAskRiShelfieExpert site. [email or web address] IMPRESSION: 1. Right axillary venous catheter with nonocclusive thrombin cast. 2. 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 3. The right internal jugular, innominate, and subclavian veins wereobscured by overlying bandages. Findings were discussed with Kimberley Sierra APRN [place] [id number] at 10:00PMon 10/04/2023. Kimberley Sierra APRN, C.N.P., D.N.P. IMG US PROCEDURES * (ABNORMAL) Glucose, POCT (10/04/2023 8:15 PM POWDERED SUGAR PULVERIZER OPERATOR) Glucose, POCT, B 141(H) 70 - 140 mg/dL 10/04/2023 8:17 PM POWDERED SUGAR PULVERIZER OPERATOR PCLX Site ARTLINE 10/04/2023 8:17 PM POWDERED SUGAR PULVERIZER OPERATOR PCLX Blood 10/04/2023 8:15 PM POWDERED SUGAR PULVERIZER OPERATOR 10/04/2023 8:18 PM POWDERED SUGAR PULVERIZER OPERATOR Unknown Provider LAB POCT ORDERABLES- MANUAL POC [facility] [address] [place] [address], [facility] PCLX [facility] [address] [place] [address] * Patient Status (10/04/2023 7:54 PM POWDERED SUGAR PULVERIZER OPERATOR) FIO2 0.30 0.21=AIR 10/04/2023 7:59 PM POWDERED SUGAR PULVERIZER OPERATOR [facility] Device Vent 10/04/2023 7:59 PM POWDERED SUGAR PULVERIZER OPERATOR [facility] Spont. breaths/min 19 10/04/2023 7:59 PM POWDERED SUGAR PULVERIZER OPERATOR [facility] Blood 10/04/2023 7:54 PM POWDERED SUGAR PULVERIZER OPERATOR 10/04/2023 7:59 PM POWDERED SUGAR PULVERIZER OPERATOR Kimberley Sierra APRN, C.N.P., D.N.P. LAB BLOOD NON ADD-ON Performing Organization Address City/[facility] Co de Phone Number [facility] [address] [place] [address], [facility] ST[facility] [address] [place] [address] * (ABNORMAL) Blood Gas with Coox, Arterial (10/04/2023 7:54 PM POWDERED SUGAR PULVERIZER OPERATOR) pO2 91 83 - 108 mm Hg 10/04/2023 8:05 PM POWDERED SUGAR PULVERIZER OPERATOR [facility] pCO2 36 35 - 48 mm Hg 10/04/2023 8:05 PM POWDERED SUGAR PULVERIZER OPERATOR [facility] pH 7.34(L) 7.35 - 7.45 pH 10/04/2023 8:05 PM POWDERED SUGAR PULVERIZER OPERATOR [facility] Base Excess -6(L) -2 - 3 mmol/L 10/04/2023 8:05 PM POWDERED SUGAR PULVERIZER OPERATOR [facility] HCO3 19(L) 22 - 26 mmol/L 10/04/2023 8:05 PM POWDERED SUGAR PULVERIZER OPERATOR [facility] Hemoglobin, Venous 9.5(L) 13.2 - 16.6 g/dL 10/04/2023 8:05 PM POWDERED SUGAR PULVERIZER OPERATOR [facility] O2Hb 95.9 94.0 - 98.0 % 10/04/2023 8:05 PM POWDERED SUGAR PULVERIZER OPERATOR [facility] COHb 2.1 <3.0 % 10/04/2023 8:05 PM POWDERED SUGAR PULVERIZER OPERATOR [facility] MetHb <1.0 <1.5 % 10/04/2023 8:05 PM POWDERED SUGAR PULVERIZER OPERATOR [facility] CtO2 13.0(L) 18.0 - 21.0 vol % 10/04/2023 8:05 PM POWDERED SUGAR PULVERIZER OPERATOR [facility] Arterial Sample Site Art Line 10/04/2023 8:05 PM POWDERED SUGAR PULVERIZER OPERATOR [facility] Comment:Shai's test not don e. Blood (Blood, Arterial) 10/04/2023 7:54 PM POWDERED SUGAR PULVERIZER OPERATOR 10/04/2023 7:59 PM POWDERED SUGAR PULVERIZER OPERATOR Kimberley Sierra APRN C.N.P., D.N.P. LAB BLOOD NON ADD-ON Performing Organization Address City/[facility] [place] [address] * (ABNORMAL) Lactate (10/04/2023 7:53 PM POWDERED SUGAR PULVERIZER OPERATOR) Pathologist [facility] Lactate, P 4.0(H) 0.5 - 2.2 mmol/L 10/04/2023 8:12 PM POWDERED SUGAR PULVERIZER OPERATOR [facility] Blood (Blood, Venous) 10/04/2023 7:53 PM POWDERED SUGAR PULVERIZER OPERATOR 10/04/2023 7:59 PM POWDERED SUGAR PULVERIZER OPERATOR Kimberley Sierra APRN, C.N.P., D.N.P. LAB BLOOD NON ADD-ON Performing Organization Address City/[facility] [place] [address] * (ABNORMAL) Urinalysis, Dipstick (10/04/2023 6:39 PM POWDERED SUGAR PULVERIZER OPERATOR) Glucose, U 100(A) Negative mg/dL 10/04/2023 7:46 PM POWDERED SUGAR PULVERIZER OPERATOR [facility] Comment: ----ADDITIONAL INFORMATION---- This test has been modified from the helpdesk manager's instructions. Its performance characteristics were determined by [facility] in a manner consistent with CLIA requirements. This test has not been cleared or approved by the U.S. Food and Drug Administration. Ketone, U Negative Negative mg/dL 10/04/2023 7:46 PM POWDERED SUGAR PULVERIZER OPERATOR [facility] Comment: ----ADDITIONAL INFORMATION---- This test has been modified from the helpdesk manager's instructions. Its performance characteristics were determined by [facility] in a manner consistent with CLIA requirements. This test has not been cleared or approved by the U.S. Food and Drug Administration. pH, U 5.0 5.0 - 8.0 pH 10/04/2023 7:46 PM POWDERED SUGAR PULVERIZER OPERATOR [facility] Comment: ----ADDITIONAL INFORMATION---- This test has been modified from the helpdesk manager's instructions. Its performance characteristics were determined by [facility] in a manner consistent with CLIA requirements. This test has not been cleared or approved by the U.S. Food and Drug Administration. Protein, U 100(A) Negative mg/dL 10/04/2023 7:46 PM POWDERED SUGAR PULVERIZER OPERATOR [facility] Comment: ----ADDITIONAL INFORMATION---- This test has been modified from the helpdesk manager's instructions. Its performance characteristics were determined by [facility] in a manner consistent with CLIA requirements. This test has not been cleared or approved by the U.S. Food and Drug Administration. Blood, U Negative Negative 10/04/2023 7:46 PM POWDERED SUGAR PULVERIZER OPERATOR [facility] Comment: ----ADDITIONAL INFORMATION---- This test has been modified from the helpdesk manager's instructions. Its performance characteristics were determined by [facility] in a manner consistent with CLIA requirements. This test has not been cleared or approved by the U.S. Food and Drug Administration. Nitrite, U Negative Negative 10/04/2023 7:46 PM POWDERED SUGAR PULVERIZER OPERATOR [facility] Comment: ----ADDITIONAL INFORMATION---- This test has been modified from the helpdesk manager's instructions. Its performance characteristics were determined by [facility] in a manner consistent with CLIA requirements. This test has not been cleared or approved by the U.S. Food and Drug Administration. Leukocyte, U Negative Negative 10/04/2023 7:46 PM POWDERED SUGAR PULVERIZER OPERATOR [facility] Comment: ----ADDITIONAL INFORMATION---- This test has been modified from the helpdesk manager's instructions. Its performance characteristics were determined by [facility] in a manner consistent with CLIA requirements. This test has not been cleared or approved by the U.S. Food and Drug Administration. Urine (Urine, Midstream) 10/04/2023 6:39 PM POWDERED SUGAR PULVERIZER OPERATOR 10/04/2023 7:43 PM POWDERED SUGAR PULVERIZER OPERATOR Juliocesar Hernandez APRN, C.N.P. LAB URINE ORDE RABLES [facility] [address] [place] [address], [facility] ST[facility] [address] [place] [address] * (ABNORMAL) Glucose, POCT (10/04/2023 6:32 PM POWDERED SUGAR PULVERIZER OPERATOR) Glucose, POCT, B 226(H) 70 - 140 mg/dL 10/04/2023 6:34 PM POWDERED SUGAR PULVERIZER OPERATOR PCLX Site Capillary 10/04/2023 6:34 PM POWDERED SUGAR PULVERIZER OPERATOR PCLX Last Intake NPO 10/04/2023 6:34 PM POWDERED SUGAR PULVERIZER OPERATOR PCLX Blood 10/04/2023 6:32 PM POWDERED SUGAR PULVERIZER OPERATOR 10/04/2023 6:35 PM POWDERED SUGAR PULVERIZER OPERATOR Unknown Provider LAB POCT ORDERABLES- MANUAL Performing Organization Address City/[facility]/ZIP Co de Phone Number POC [facility] [address] [place] [address], [facility] PCLX [facility] [address] [place] [address] * (ABNORMAL) Troponin T, 2h/6h, 5th Gen (10/04/2023 5:57 PM POWDERED SUGAR PULVERIZER OPERATOR) Troponin T, 2 hr, 5th gen 76(H) <=15 ng/L 10/04/2023 6:26 PM POWDERED SUGAR PULVERIZER OPERATOR [facility] 2H [place] 2 ng/L 10/04/2023 6:26 PM POWDERED SUGAR PULVERIZER OPERATOR [facility] 2H [place] Interp Not Changing 10/04/2023 6:26 PM POWDERED SUGAR PULVERIZER OPERATOR [facility] Troponin T, 6 hr, 5th gen CANCELED ng/L 10/04/2023 6:26 PM POWDERED SUGAR PULVERIZER OPERATOR [facility] Comment:Result canceled by t he ancillary. 6H [place] CANCELED ng/L 10/04/2023 6:18 PM POWDERED SUGAR PULVERIZER OPERATOR [facility] Comment:Result canceled by t he ancillary. 6H [place] % CANCELED % 10/04/2023 6:18 PM POWDERED SUGAR PULVERIZER OPERATOR [facility] Comment:Result canceled by domi osorio ancillary. Blood (Blood, Arterial) 10/04/2023 5:57 PM POWDERED SUGAR PULVERIZER OPERATOR 10/04/2023 6:01 PM POWDERED SUGAR PULVERIZER OPERATOR Narrative [facility] - 10/04/2023 6:26 PM POWDERED SUGAR PULVERIZER OPERATOR Specimen Information: Specimen ID: [id number] Specimen Type: Blood Specimen Collection Start Date: 10/04/2023 ??5:57 PM Specimen Received Date: 10/04/2023 ??6:01 PM Specimen ID: [id number] Specimen Type: Blood Specimen Collection Start Date: 10/04/2023 ??6:25 PM Specimen Received Date: 10/04/2023 ??6:25 PM Juliocesar Hernandez APRN, C.N.P. LAB BLOOD TROP ONIN [facility] [address] [place] [address], [facility] [address] [place] [address] * DX Chest Portable 1 View (10/04/2023 5:42 PM POWDERED SUGAR PULVERIZER OPERATOR) Anatomical Region Laterality Modality Chest, Thoracic RST LOS, Tho racic ARZ LOS, Thoracic FLA LOS N/A Digital Radiography Impressions 10/04/2023 7:45 PM POWDERED SUGAR PULVERIZER OPERATOR Since earlier today at 3:59 PM, new [...] were discussed with Dr. Pace pager # [phone] at 7:38 on 10/04/2022. Narrative 10/04/2023 7:45 PM POWDERED SUGAR PULVERIZER OPERATOR EXAM: ??DX CHEST PORTABLE 1 VIEW Procedure [...] were discussed with Dr. Pace pager # [phone] at 7:38 on10/04/2022. Mary New APRN, C.N.P. IMG [facility] IMAGING PROCEDURES * (ABNORMAL) Glucose, POCT (10/04/2023 5:01 PM POWDERED SUGAR PULVERIZER OPERATOR) Glucose, POCT, B 213(H) 70 - 140 mg/dL 10/04/2023 5:04 PM POWDERED SUGAR PULVERIZER OPERATOR PCLX Site Capillary 10/04/2023 5:04 PM POWDERED SUGAR PULVERIZER OPERATOR PCLX Last Intake 1-2 hours 10/04/2023 5:04 PM POWDERED SUGAR PULVERIZER OPERATOR P[facility] Blood 10/04/2023 5:01 PM POWDERED SUGAR PULVERIZER OPERATOR 10/04/2023 5:04 PM POWDERED SUGAR PULVERIZER OPERATOR Unknown Provider LAB POCT ORDERABLES- MANUAL POC [facility] [address] [place] [address], [facility] PCLX [facility] [address] [place] [address] * DE INS NON-JEFRY CVC >5YR, LDA ANE CENTRAL LINE TRIPLE LUMEN, MC ANE CENTRAL LINE GENERIC PERFORMABLE (10/04/2023 4:25 PM POWDERED SUGAR PULVERIZER OPERATOR) Narrative Jeaneth Gonzalez M.D. - 10/04/2023 4:25 PM POWDERED SUGAR PULVERIZER OPERATOR Mary New APRN, C.N.P. ? 10/04/2023 ??4:30 [...] * ECG 12 Lead (10/04/2023 4:17 PM POWDERED SUGAR PULVERIZER OPERATOR) [facility] Ventricular Rate ECG/Min 109 BPM MUSE DE Interval 162 ms MUSE QRSD Interval 94 ms MUSE QT Interval 344 ms MUSE QTC Interval 463 ms MUSE P [place] 52 degrees MUSE R [place] 76 degrees MUSE T Wave [place] 63 degrees MUSE 10/04/2023 4:17 PM POWDERED SUGAR PULVERIZER OPERATOR 10/04/2023 4:20 PM POWDERED SUGAR PULVERIZER OPERATOR Impressions MUSE - 10/04/2023 4:20 PM POWDERED SUGAR PULVERIZER OPERATOR Sinus tachycardia Nonspecific ST and T wave [...] by Marito Fairbanks III, CRAT Juliocesar Hernandez APRN, C.N.P. ECG ORDERABLES MUSE NA * Patient Status (10/04/2023 3:49 PM POWDERED SUGAR PULVERIZER OPERATOR) [facility] FIO2 0.50 0.21=AIR 10/04/2023 3:54 PM POWDERED SUGAR PULVERIZER OPERATOR [facility] Device Vent 10/04/2023 3:54 PM POWDERED SUGAR PULVERIZER OPERATOR [facility] Spont. breaths/min 18 10/04/2023 3:54 PM POWDERED SUGAR PULVERIZER OPERATOR [facility] Blood 10/04/2023 3:49 PM POWDERED SUGAR PULVERIZER OPERATOR 10/04/2023 3:54 PM POWDERED SUGAR PULVERIZER OPERATOR Juliocesar Hernandez APRN, C.N.P. LAB BLOOD NON ADD-ON [facility] [address] [place] [address], [facility] [address] [place] [address] * (ABNORMAL) Troponin T, Baseline, 5th gen (10/04/2023 3:49 PM POWDERED SUGAR PULVERIZER OPERATOR) [facility] Troponin T, Baseline, 5th gen 74(H) <=15 ng/L 10/04/2023 4:17 PM POWDERED SUGAR PULVERIZER OPERATOR [facility] Blood (Blood, Arterial) 10/04/2023 3:49 PM POWDERED SUGAR PULVERIZER OPERATOR 10/04/2023 3:54 PM POWDERED SUGAR PULVERIZER OPERATOR Juliocesar Hernandez APRN, C.N.P. LAB BLOOD TROP ONIN Performing Organization Address City/[facility] Co de Phone Number [facility] [address] [place] [address], [facility] [address] [place] [address] * (ABNORMAL) Prothrombin Time (PT) (10/04/2023 3:49 PM POWDERED SUGAR PULVERIZER OPERATOR) Pathologist [facility] Prothrombin Time, P 14.6(H) 9.4 - 12.5 sec 10/04/2023 4:27 PM POWDERED SUGAR PULVERIZER OPERATOR [facility] INR 1.3 0.9 - 1.1 10/04/2023 4:27 PM POWDERED SUGAR PULVERIZER OPERATOR [facility] Comment: ----ADDITIONAL INFORMATION---- Standard intensity warfarin therapeutic range: 2.0 to 3.0 ?? High intensity warfarin therapeutic range: 2.5 to 3.5 Blood (Blood, Venous) 10/04/2023 3:49 PM POWDERED SUGAR PULVERIZER OPERATOR 10/04/2023 3:54 PM POWDERED SUGAR PULVERIZER OPERATOR Juliocesar Hernandez APRN, C.N.P. LAB BLOOD ADD- ON Performing Organization Address City/[facility]/ZIP Co de Phone Number [facility] [address] [place] [address], [facility] [address] [place] [address] * Phosphorus Inorganic (10/04/2023 3:49 PM POWDERED SUGAR PULVERIZER OPERATOR) Pathologist [facility] Phosphorus (Inorganic), S 4.4 2.5 - 4.5 mg/dL 10/04/2023 5:04 PM POWDERED SUGAR PULVERIZER OPERATOR DTL Blood (Blood, Venous) 10/04/2023 3:49 PM POWDERED SUGAR PULVERIZER OPERATOR 10/04/2023 4:29 PM POWDERED SUGAR PULVERIZER OPERATOR Juliocesar Hernandez APRN, C.N.P. LAB BLOOD ADD- ON Performing Organization Address City/[facility]/ZIP Co de Phone Number [facility] [address] [place], [place] [address] [place] [address] [address] [place] [address] * (ABNORMAL) Magnesium (10/04/2023 3:49 PM POWDERED SUGAR PULVERIZER OPERATOR) Magnesium, S 1.5(L) 1.7 - 2.3 mg/dL 10/04/2023 5:04 PM POWDERED SUGAR PULVERIZER OPERATOR [facility] Blood (Blood, Venous) 10/04/2023 3:49 PM POWDERED SUGAR PULVERIZER OPERATOR 10/04/2023 4:29 PM POWDERED SUGAR PULVERIZER OPERATOR Juliocesar Hernandez APRN C.N.P. LAB BLOOD ADD- ON Performing Organization Address City/[facility] Co de Phone Number [facility] [address] [place], [place] [address] [place] [address] [address] [place] [address] * (ABNORMAL) Lactate (10/04/2023 3:49 PM POWDERED SUGAR PULVERIZER OPERATOR) Lactate, P 3.8(H) 0.5 - 2.2 mmol/L 10/04/2023 4:24 PM POWDERED SUGAR PULVERIZER OPERATOR [facility] Blood (Blood, Venous) 10/04/2023 3:49 PM POWDERED SUGAR PULVERIZER OPERATOR 10/04/2023 3:54 PM POWDERED SUGAR PULVERIZER OPERATOR Juliocesar Hernandez APRN, C.N.P. LAB BLOOD NON ADD-ON Performing Organization Address City/[facility]/ZIP Co de Phone Number [facility] [address] [place], [place] [phone] [place], [place] [address] [place] [address] * (ABNORMAL) Hepatic Function Panel (10/04/2023 3:49 PM POWDERED SUGAR PULVERIZER OPERATOR) Bilirubin, Total, S 0.9 0.0 - 1.2 mg/dL 10/04/2023 5:04 PM POWDERED SUGAR PULVERIZER OPERATOR DTL Bilirubin, Direct, S 0.7(H) 0.0 - 0.3 mg/dL 10/04/2023 5:04 PM POWDERED SUGAR PULVERIZER OPERATOR DTL Aspartate Aminotransferase (AST), S 27 8 - 48 U/L 10/04/2023 5:04 PM POWDERED SUGAR PULVERIZER OPERATOR DTL Alanine Aminotransferase (ALT), S 16 7 - 55 U/L 10/04/2023 5:04 PM POWDERED SUGAR PULVERIZER OPERATOR DTL Alkaline Phosphatase, S 114 40 - 129 U/L 10/04/2023 5:31 PM POWDERED SUGAR PULVERIZER OPERATOR DTL Albumin, S 2.6(L) 3.5 - 5.0 g/dL 10/04/2023 5:04 PM POWDERED SUGAR PULVERIZER OPERATOR DTL Protein, Total, S 4.2(L) 6.3 - 7.9 g/dL 10/04/2023 5:04 PM POWDERED SUGAR PULVERIZER OPERATOR DTL Blood (Blood, Venous) 10/04/2023 3:49 PM POWDERED SUGAR PULVERIZER OPERATOR 10/04/2023 4:29 PM POWDERED SUGAR PULVERIZER OPERATOR Juliocesar Hernandez APRN C.N.P. LAB BLOOD ADD- ON [address] [address], [address] [address] * (ABNORMAL) CBC without Differential (10/04/2023 3:49 PM POWDERED SUGAR PULVERIZER OPERATOR) Hemoglobin 9.9(L) 13.2 - 16.6 g/dL 10/04/2023 4:00 PM POWDERED SUGAR PULVERIZER OPERATOR [facility] Hematocrit 30.8(L) 38.3 - 48.6 % 10/04/2023 4:00 PM POWDERED SUGAR PULVERIZER OPERATOR [facility] Erythrocytes 3.35(L) 4.35 - 5.65 x10(12)/L 10/04/2023 4:00 PM POWDERED SUGAR PULVERIZER OPERATOR [facility] MCV 91.9 78.2 - 97.9 fL 10/04/2023 4:00 PM POWDERED SUGAR PULVERIZER OPERATOR [facility] RBC Distrib Width 16.1(H) 11.8 - 14.5 % 10/04/2023 4:00 PM POWDERED SUGAR PULVERIZER OPERATOR [facility] Platelet Count 193 135 - 317 x10(9)/L 10/04/2023 4:00 PM POWDERED SUGAR PULVERIZER OPERATOR [facility] Leukocytes 2.8(L) 3.4 - 9.6 x10(9)/L 10/04/2023 4:34 PM POWDERED SUGAR PULVERIZER OPERATOR [facility] Blood (Blood, Venous) 10/04/2023 3:49 PM POWDERED SUGAR PULVERIZER OPERATOR 10/04/2023 3:54 PM POWDERED SUGAR PULVERIZER OPERATOR Lola Ortega APRN.N.P. LAB BLOOD ADD- ON Performing Organization Address City/[facility] Co de Phone Number [facility] [address] [place] [address] * (ABNORMAL) Calcium, Ionized (10/04/2023 3:49 PM POWDERED SUGAR PULVERIZER OPERATOR) Calcium, Ionized, B 5.56(H) 4.65 - 5.30 mg/dL 10/04/2023 3:59 PM POWDERED SUGAR PULVERIZER OPERATOR [facility] Blood (Blood, Venous) 10/04/2023 3:49 PM POWDERED SUGAR PULVERIZER OPERATOR 10/04/2023 3:54 PM POWDERED SUGAR PULVERIZER OPERATOR Juliocesar Hernandez APRN, C.N.P. LAB BLOOD NON ADD-ON Performing Organization Address [facility] Co de Phone Number [facility] [address] [place], [place] [address] [place] [address] [address] [place] [address] * (ABNORMAL) Basic Metabolic Panel (10/04/2023 3:49 PM POWDERED SUGAR PULVERIZER OPERATOR) Potassium, P 3.8 3.6 - 5.2 mmol/L 10/04/2023 4:29 PM POWDERED SUGAR PULVERIZER OPERATOR [facility] Sodium, P 137 135 - 145 mmol/L 10/04/2023 4:29 PM POWDERED SUGAR PULVERIZER OPERATOR [facility] Chloride, P 105 98 - 107 mmol/L 10/04/2023 4:29 PM POWDERED SUGAR PULVERIZER OPERATOR [facility] Bicarbonate, P 19(L) 22 - 29 mmol/L 10/04/2023 4:29 PM POWDERED SUGAR PULVERIZER OPERATOR [facility] Anion Gap, P 13 7 - 15 10/04/2023 4:29 PM POWDERED SUGAR PULVERIZER OPERATOR [facility] BUN (Blood Urea Nitrogen), P 29(H) 8 - 24 mg/dL 10/04/2023 4:29 PM POWDERED SUGAR PULVERIZER OPERATOR [facility] Creatinine 0.66(L) 0.74 - 1.35 mg/dL 10/04/2023 4:29 PM POWDERED SUGAR PULVERIZER OPERATOR [facility] Estimated GFR (eGFR) >90 >=60 mL/min/BSA 10/04/2023 4:29 PM POWDERED SUGAR PULVERIZER OPERATOR [facility] Comment: Estimated GFR calculated using the 2020 CKD_EPI creatinine equation. Calcium, Total, P 9.2 8.8 - 10.2 mg/dL 10/04/2023 4:29 PM POWDERED SUGAR PULVERIZER OPERATOR [facility] Glucose, P 240(H) 70 - 140 mg/dL 10/04/2023 4:29 PM POWDERED SUGAR PULVERIZER OPERATOR [facility] Blood (Blood, Venous) 10/04/2023 3:49 PM POWDERED SUGAR PULVERIZER OPERATOR 10/04/2023 3:54 PM POWDERED SUGAR PULVERIZER OPERATOR Juliocesar Hernandez APRN, C.N.P. LAB BLOOD ADD- ON [place] [address] [place] [address], [facility] [address] [place] [address] * (ABNORMAL) Blood Gas with Coox, Arterial (10/04/2023 3:49 PM POWDERED SUGAR PULVERIZER OPERATOR) pO2 123(H) 83 - 108 mm Hg 10/04/2023 3:59 PM POWDERED SUGAR PULVERIZER OPERATOR [facility] pCO2 39 35 - 48 mm Hg 10/04/2023 3:59 PM POWDERED SUGAR PULVERIZER OPERATOR [facility] pH 7.29(L) 7.35 - 7.45 pH 10/04/2023 3:59 PM POWDERED SUGAR PULVERIZER OPERATOR [facility] Base Excess -7(L) -2 - 3 mmol/L 10/04/2023 3:59 PM POWDERED SUGAR PULVERIZER OPERATOR [facility] HCO3 18(L) 22 - 26 mmol/L 10/04/2023 3:59 PM POWDERED SUGAR PULVERIZER OPERATOR [facility] Hemoglobin, Venous 10.5(L) 13.2 - 16.6 g/dL 10/04/2023 3:59 PM POWDERED SUGAR PULVERIZER OPERATOR [facility] O2Hb 94.9 94.0 - 98.0 % 10/04/2023 3:59 PM POWDERED SUGAR PULVERIZER OPERATOR [facility] COHb 1.1 <3.0 % 10/04/2023 3:59 PM POWDERED [employer]UL[employer]ER OPERATOR [facility] MetHb 2.1(H) <1.5 % 10/04/2023 3:59 PM POW[employer]UL[employer]ER OPERATOR [facility] CtO2 14.3(L) 18.0 - 21.0 vol % 10/04/2023 3:59 PM POWDER[employer]UL[employer]ER OPERATOR [facility] Arterial Sample Site Art Line 10/04/2023 3:59 PM POWDER[employer]UL[employer]ER OPERATOR [facility] Comment:Shai's test not don e. Blood (Blood, Arterial) 10/04/2023 3:49 PM POW[employer]UL[employer]ER OPERATOR 10/04/2023 3:54 PM POW[employer] PULVER[employer]ER OPERATOR Juliocesar Hernandez APRN C.N.P. LAB BLOOD NON ADD-ON [facility] [address] [place] [address], [facility] [address] [place] [address] * DX Chest Portable 1 View (10/04/2023 3:44 PM POW[employer]ULVER[employer]ER OPERATOR) Anatomical Region Laterality Modality Chest, Thoracic RST LOS, Tho racic ARZ LOS, Thoracic FLA LOS N/A Digital Radiography Impressions 10/04/2023 4:30 PM [employer]ER OPERATOR Since 04/23/2023, interval placement of a right [...] percutaneous gastrojejunostomy tube. Narrative 10/04/2023 4:30 PM POW[employer]ULVER[employer]ER OPERATOR EXAM: ??DX CHEST PORTABLE 1 VIEW Procedure [...] Partially visualized percutaneousgastrojejunostomy tube. Eliecer Ortega APRNNGovind IMG DIAGNOSTIC IMAGING PROCEDURES * (ABNORMAL) Thromboelastograph, Kaolin, Blood (10/04/2023 2:58 PM POW[employer] PULVER[employer]ER OPERATOR) R, Kaolin, TEG 6.2 4.0 - 9.0 min 10/04/2023 4:12 PM POW[employer]ER OPERATOR [facility] K, Kaolin, TEG 1.2 1.0 - 1.8 min 10/04/2023 4:12 PM POWDER[employer] PULVER[employer]ER OPERATOR [facility] Angle, Kaolin, TEG 74.0 64.0 - 78.1 degrees 10/04/2023 4:12 PM POWDER[employer] PULVER[employer]ER OPERATOR [facility] MA, Kaolin, TEG 74.5(H) 57.1 - 72.6 mm 10/04/2023 4:12 PM POWDERED [employer] PULVER[employer]ER OPERATOR [facility] Ly30, Kaolin, TEG 0.0 0.0 - 4.8 % 10/04/2023 4:12 PM POWDERED [employer] PULVER[employer]ER OPERATOR [facility] Blood (Blood, Arterial Line) 10/04/2023 2:58 PM POWDERED [employer] PULVERIZER OPERATOR 10/04/2023 2:58 PM POWDER[employer] PULVER[employer]ER OPERATOR Ronald De Paz M.D. LAB BLOOD NON ADD-O N [facility] [address] [place] [address], [facility] [address] [place] [address] * Transfuse Red Blood Cells : (10/04/2023 2:34 PM POWDERED SUGAR PULVERIZER OPERATOR) Ronald De Paz M.D. BLOOD TRANSFUSION O RDERABLES * (ABNORMAL) Glucose, Whole Blood (10/04/2023 2:00 PM POWDERED SUGAR PULVERIZER OPERATOR) Glucose 237(H) 70 - 140 mg/dL 10/04/2023 2:05 PM POWDERED SUGAR PULVERIZER OPERATOR [facility] Blood (Blood, Arterial Line) 10/04/2023 2:00 PM POWDERED SUGAR PULVERIZER OPERATOR 10/04/2023 2:00 PM POWDERED SUGAR PULVERIZER OPERATOR Ronald De Paz M.D. LAB BLOOD ADD-ON [facility] [address] [place], [place] [id number] [place] [address] 200 [place] [address] * (ABNORMAL) Potassium, Blood (10/04/2023 2:00 PM POWDERED SUGAR PULVERIZER OPERATOR) Potassium, B 3.3(L) 3.6 - 5.2 mmol/L 10/04/2023 2:05 PM POWDERED SUGAR PULVERIZER OPERATOR [facility] Blood (Blood, Arterial Line) 10/04/2023 2:00 PM POWDERED SUGAR PULVERIZER OPERATOR 10/04/2023 2:00 PM POWDERED SUGAR PULVERIZER OPERATOR Ronald De Paz M.D. LAB BLOOD NON ADD-O N [facility] [address] [place], [place] [id number] [place] [address] [address] [place] [address] * Sodium, B (10/04/2023 2:00 PM POWDERED SUGAR PULVERIZER OPERATOR) Sodium, B 139 135 - 145 mmol/L 10/04/2023 2:05 PM POWDERED SUGAR PULVERIZER OPERATOR [facility] Blood (Blood, Arterial Line) 10/04/2023 2:00 PM POWDERED SUGAR PULVERIZER OPERATOR 10/04/2023 2:00 PM POWDERED SUGAR PULVERIZER OPERATOR Ronald De Paz M.D. LAB BLOOD NON ADD-O N [facility] [address] [place] [address], [facility] [address] [place] [address] * (ABNORMAL) Calcium, Ionized (10/04/2023 2:00 PM POWDERED SUGAR PULVERIZER OPERATOR) Pathologist [facility] Calcium, Ionized, B 4.58(L) 4.65 - 5.30 mg/dL 10/04/2023 2:05 PM POWDERED SUGAR PULVERIZER OPERATOR [facility] Blood (Blood, Arterial Line) 10/04/2023 2:00 PM POWDERED SUGAR PULVERIZER OPERATOR 10/04/2023 2:00 PM POWDERED SUGAR PULVERIZER OPERATOR Ronald De Paz M.D. LAB BLOOD NON ADD-O N Performing Organization Address City/[facility]/ZIP Co de Phone Number [facility] [address] [place] [address], [facility] [address] [place] [address] * (ABNORMAL) Blood Gas with Coox, Arterial (10/04/2023 2:00 PM POWDERED SUGAR PULVERIZER OPERATOR) pO2 383(H) 83 - 108 mm Hg 10/04/2023 2:05 PM POWDERED SUGAR PULVERIZER OPERATOR [facility] pCO2 46 35 - 48 mm Hg 10/04/2023 2:05 PM POWDERED SUGAR PULVERIZER OPERATOR [facility] pH 7.26(L) 7.35 - 7.45 pH 10/04/2023 2:05 PM POWDERED SUGAR PULVERIZER OPERATOR [facility] Base Excess -7(L) -2 - 3 mmol/L 10/04/2023 2:05 PM POWDERED SUGAR PULVERIZER OPERATOR [facility] HCO3 20(L) 22 - 26 mmol/L 10/04/2023 2:05 PM POWDERED SUGAR PULVERIZER OPERATOR [facility] Hemoglobin, Venous 8.1(L) 13.2 - 16.6 g/dL 10/04/2023 2:05 PM POWDERED SUGAR PULVERIZER OPERATOR [facility] O2Hb 99.2(H) 94.0 - 98.0 % 10/04/2023 2:05 PM POWDERED SUGAR PULVERIZER OPERATOR [facility] COHb 1.7 <3.0 % 10/04/2023 2:05 PM POWDERED SUGAR PULVERIZER OPERATOR [facility] MetHb <1.0 <1.5 % 10/04/2023 2:05 PM POWDERED SUGAR PULVERIZER OPERATOR [facility] CtO2 12.2(L) 18.0 - 21.0 vol % 10/04/2023 2:05 PM POWDERED SUGAR PULVERIZER OPERATOR [facility] Blood (Blood, Arterial Line) 10/04/2023 2:00 PM POWDERED SUGAR PULVERIZER OPERATOR 10/04/2023 2:00 PM POWDERED SUGAR PULVERIZER OPERATOR Ronald De Paz M.D. LAB BLOOD NON ADD-O N [facility] [address] [place] [address], [facility] STMA [facility] [address] [place] [address] * Critical Care (10/04/2023 10:29 AM POWDERED SUGAR PULVERIZER OPERATOR) Narrative Jayna Albert M.D. - 10/04/2023 10:29 AM POWDERED SUGAR PULVERIZER OPERATOR Jayna Albert M.D. ? 10/04/2023 11:19 AM [...] Pelvis with IV Contrast (10/04/2023 9:56 AM POWDERED SUGAR PULVERIZER OPERATOR) Anatomical Region Laterality Modality Abdomen, Pelvis, Abdominal R ST LOS, Abdominal ARZ LOS, Abdominal FLA LOS N/A Computed Tomograp hy, Computed Tomography 10/04/2023 9:47 AM POWDERED SUGAR PULVERIZER OPERATOR Impressions 10/04/2023 10:29 AM POWDERED SUGAR PULVERIZER OPERATOR 1. Massive portal venous gas and gas [...] Critical findings discussed with Jayna Albert M.D. ([id number]) at 10:20 AM on 10/04/2023. Narrative 10/04/2023 10:29 AM POWDERED SUGAR PULVERIZER OPERATOR EXAM: ??CT ABDOMEN PELVIS WITH IV CONTRAST [...] Critical findings discussed with Jayna Albert M.D. ([id number]) at 10:20 Ember 10/04/2023. Jayna Albert M.D. IMG CT PROCEDURES * Magnesium (10/04/2023 8:41 AM POWDERED SUGAR PULVERIZER OPERATOR) Pathologist [facility] Magnesium, S 1.8 1.7 - 2.3 mg/dL 10/04/2023 9:44 AM POWDERED SUGAR PULVERIZER OPERATOR DTL Blood (Blood, Venous) 10/04/2023 8:41 AM POWDERED SUGAR PULVERIZER OPERATOR 10/04/2023 9:27 AM POWDERED SUGAR PULVERIZER OPERATOR Jayna Albert M.D. LAB BLOOD ADD-ON Performing Organization Address City/[facility]/ZIP Co de Phone Number [facility] [address] [place] [address], [facility] DTL [facility] [address] [place] [address] * Lactate for Sepsis with Reflex, POCT (10/04/2023 8:41 AM POWDERED SUGAR PULVERIZER OPERATOR) [facility] Lactate, POCT 1.80 0.50 - 2.20 mmol/L 10/04/2023 9:05 AM POWDERED SUGAR PULVERIZER OPERATOR [facility] Blood (Blood, Venous) 10/04/2023 8:41 AM POWDERED SUGAR PULVERIZER OPERATOR 10/04/2023 8:41 AM POWDERED SUGAR PULVERIZER OPERATOR Jayna Albert M.D. LAB POCT ORDERABL ES - DEVICE Performing Organization Address City/[facility]/ZIP Co de Phone Number [facility]OC [facility] [address] [place] [address], [facility] PCLX [facility] POC [address] [place] [address] * (ABNORMAL) Prothrombin Time (PT) (10/04/2023 8:41 AM POWDERED SUGAR PULVERIZER OPERATOR) Pathologist [facility] Prothrombin Time, P 12.6(H) 9.4 - 12.5 sec 10/04/2023 9:08 AM POWDERED SUGAR PULVERIZER OPERATOR [facility] INR 1.1 0.9 - 1.1 10/04/2023 9:08 AM POWDERED SUGAR PULVERIZER OPERATOR [facility] Comment: ----ADDITIONAL INFORMATION---- Standard intensity warfarin therapeutic range: 2.0 to 3.0 ?? High intensity warfarin therapeutic range: 2.5 to 3.5 Blood (Blood, Venous) 10/04/2023 8:41 AM POWDERED SUGAR PULVERIZER OPERATOR 10/04/2023 8:56 AM POWDERED SUGAR PULVERIZER OPERATOR Jayna Albert M.D. LAB BLOOD ADD-ON Performing Organization Address City/[facility]/ZIP Co de Phone Number [facility] [address] [place] [address], [facility] [address] [place] [address] * (ABNORMAL) Lipase (10/04/2023 8:41 AM POWDERED SUGAR PULVERIZER OPERATOR) Pathologist [facility] Lipase, S 11(L) 13 - 60 U/L 10/04/2023 9: 44 AM POWDERED SUGAR PULVERIZER OPERATOR DTL Blood (Blood, Venous) 10/04/2023 8:41 AM POWDERED SUGAR PULVERIZER OPERATOR 10/04/2023 9:27 AM POWDERED SUGAR PULVERIZER OPERATOR Jayna Albert M.D. LAB BLOOD ADD-ON [facility] [address] [place] [address], [facility] [address] [address] * (ABNORMAL) Hepatic Function Panel (10/04/2023 8:41 AM POWDERED SUGAR PULVERIZER OPERATOR) Bilirubin, Total, S 0.4 0.0 - 1.2 mg/dL 10/04/2023 9:44 AM POWDERED SUGAR PULVERIZER OPERATOR DTL Bilirubin, Direct, S 0.2 0.0 - 0.3 mg/dL 10/04/2023 9:44 AM POWDERED SUGAR PULVERIZER OPERATOR DTL Aspartate Aminotransferase (AST), S 24 8 - 48 U/L 10/04/2023 9:44 AM POWDERED SUGAR PULVERIZER OPERATOR DTL Alanine Aminotransferase (ALT), S 20 7 - 55 U/L 10/04/2023 9:44 AM POWDERED SUGAR PULVERIZER OPERATOR DTL Alkaline Phosphatase, S 150(H) 40 - 129 U/L 10/04/2023 9:44 AM POWDERED SUGAR PULVERIZER OPERATOR DTL Albumin, S 3.6 3.5 - 5.0 g/dL 10/04/2023 9:44 AM POWDERED SUGAR PULVERIZER OPERATOR DTL Protein, Total, S 5.3(L) 6.3 - 7.9 g/dL 10/04/2023 9:44 AM POWDERED SUGAR PULVERIZER OPERATOR DTL Blood (Blood, Venous) 10/04/2023 8:41 AM POWDERED SUGAR PULVERIZER OPERATOR 10/04/2023 9:27 AM POWDERED SUGAR PULVERIZER OPERATOR Jayna Albert M.D. LAB BLOOD ADD-ON [facility] [address] [place] [address], [facility] [address] [place] [address] * (ABNORMAL) Basic Metabolic Panel (10/04/2023 8:41 AM POWDERED SUGAR PULVERIZER OPERATOR) Pathologist [facility] Potassium, P 4.1 3.6 - 5.2 mmol/L 10/04/2023 9:40 AM POWDERED SUGAR PULVERIZER OPERATOR [facility] Sodium, P 138 135 - 145 mmol/L 10/04/2023 9:40 AM POWDERED SUGAR PULVERIZER OPERATOR [facility] Chloride, P 99 98 - 107 mmol/L 10/04/2023 9:40 AM POWDERED SUGAR PULVERIZER OPERATOR [facility] Bicarbonate, P 22 22 - 29 mmol/L 10/04/2023 9:40 AM POWDERED SUGAR PULVERIZER OPERATOR [facility] Anion Gap, P 17(H) 7 - 15 10/04/2023 9:40 AM POWDERED SUGAR PULVERIZER OPERATOR [facility] BUN (Blood Urea Nitrogen), P 31(H) 8 - 24 mg/dL 10/04/2023 9:40 AM POWDERED SUGAR PULVERIZER OPERATOR [facility] Creatinine 0.73(L) 0.74 - 1.35 mg/dL 10/04/2023 9:40 AM POWDERED SUGAR PULVERIZER OPERATOR [facility] Estimated GFR (eGFR) >90 >=60 mL/min/BSA 10/04/2023 9:40 AM POWDERED SUGAR PULVERIZER OPERATOR [facility] Comment: Estimated GFR calculated using the 2020 CKD_EPI creatinine equation. Calcium, Total, P 8.8 8.8 - 10.2 mg/dL 10/04/2023 9:40 AM POWDERED SUGAR PULVERIZER OPERATOR [facility] Glucose, P 200(H) 70 - 140 mg/dL 10/04/2023 9:40 AM POWDERED SUGAR PULVERIZER OPERATOR [facility] Blood (Blood, Venous) 10/04/2023 8:41 AM POWDERED SUGAR PULVERIZER OPERATOR 10/04/2023 8:56 AM POWDERED SUGAR PULVERIZER OPERATOR Jayna Albert M.D. LAB BLOOD ADD-ON [facility] [address] [place] [address], [facility] [address] [address] * (ABNORMAL) CBC with Differential, Blood (10/04/2023 8:41 AM POWDERED SUGAR PULVERIZER OPERATOR) Pathologist [facility] Hemoglobin 8.9(L) 13.2 - 16.6 g/dL 10/04/2023 8:59 AM POWDERED SUGAR PULVERIZER OPERATOR [facility] Hematocrit 27.9(L) 38.3 - 48.6 % 10/04/2023 8:59 AM POWDERED SUGAR PULVERIZER OPERATOR [facility] Erythrocytes 3.02(L) 4.35 - 5.65 x10(12)/L 10/04/2023 8:59 AM POWDERED SUGAR PULVERIZER OPERATOR [facility] MCV 92.4 78.2 - 97.9 fL 10/04/2023 8:59 AM POWDERED SUGAR PULVERIZER OPERATOR [facility] RBC Distrib Width 16.5(H) 11.8 - 14.5 % 10/04/2023 8:59 AM POWDERED SUGAR PULVERIZER OPERATOR [facility] Platelet Count 152 135 - 317 x10(9)/L 10/04/2023 8:59 AM POWDERED SUGAR PULVERIZER OPERATOR [facility] Leukocytes 2.9(L) 3.4 - 9.6 x10(9)/L 10/04/2023 8:59 AM POWDERED SUGAR PULVERIZER OPERATOR [facility] Neutrophils 2.40 1.56 - 6.45 x10(9)/L 10/04/2023 8:59 AM POWDERED SUGAR PULVERIZER OPERATOR [facility] Lymphocytes 0.19(L) 0.95 - 3.07 x10(9)/L 10/04/2023 8:59 AM POWDERED SUGAR PULVERIZER OPERATOR [facility] Monocytes 0.27 0.26 - 0.81 x10(9)/L 10/04/2023 8:59 AM POWDERED SUGAR PULVERIZER OPERATOR [facility] Eosinophils 0.05 0.03 - 0.48 x10(9)/L 10/04/2023 8:59 AM POWDERED SUGAR PULVERIZER OPERATOR [facility] Basophils <0.03 0.01 - 0.08 x10(9)/L 10/04/2023 8:59 AM POWDERED SUGAR PULVERIZER OPERATOR [facility] Blood (Blood, Venous) 10/04/2023 8:41 AM POWDERED SUGAR PULVERIZER OPERATOR 10/04/2023 8:56 AM POWDERED SUGAR PULVERIZER OPERATOR Jayna Albert M.D. LAB BLOOD ADD-ON [facility] [address] [place] [address], [facility] STMA [facility] [address] [place] [address] DHPM [facility] [address] [place] [address] * ECG 12 Lead (10/04/2023 8:16 AM POWDERED SUGAR PULVERIZER OPERATOR) Ventricular Rate ECG/Min 111 BPM MUSE DE Interval 168 ms MUSE QRSD Interval 92 ms MUSE QT Interval 322 ms MUSE QTC Interval 438 ms MUSE P Greenleaf 39 degrees MUSE R [place] 46 degrees MUSE T Wave Greenleaf 64 degrees MUSE 10/04/2023 8:16 AM POWDERED SUGAR PULVERIZER OPERATOR 10/04/2023 10:13 AM POWDERED SUGAR PULVERIZER OPERATOR Impressions MUSE - 10/04/2023 8:27 AM POWDERED SUGAR PULVERIZER OPERATOR Sinus tachycardia with sinus arrhythmia with Varying [...] Anemia Posthemorrhagic Acute (Blood Loss Anemia) Ischemia Intestinal With Stricture (HCC) documented in [...] Prophylaxis, medical New Bag 10/05/2023 6:29 AM POWDERED SUGAR PULVERIZER OPERATOR 400 mg 108 mL/hr New Bag 10/04/2023 8:17 PM POWDERED SUGAR PULVERIZER OPERATOR 400 mg 108 mL/hr chlorhexidine 0.12 % mouthwash 15 mL (PERIDEX) 15 mL, swish & spit, 2 times daily, First dose on Sat10/04/23 at 2100, Swab oral cavity while on ventilator. Avoid brushing or use of mouthwash for at least 2 hours after application. Discontinue after extubation. Given 10/05/2023 8:38 AM POWDERED SUGAR PULVERIZER OPERATOR 1 5 mL Given 10/04/2023 8:17 PM POWDERED SUGAR PULVERIZER OPERATOR 15 mL famotidine injection 20 mg (PEPCID) 20 mg, intravenous, 2 times daily, First dose on Sat10/04/23 at 2100, Drug Monitoring Program: Pharmacist to adjust medication dosing based on indication and drug clearance factors. Given 10/05/2023 8:38 AM POWDERED SUGAR PULVERIZER OPERATOR 20 mg Given 10/04/2023 8:42 PM POWDERED SUGAR PULVERIZER OPERATOR 20 mg fentaNYL 10 mcg/mL in NaCl [...] RASS goal. Rate/Dose Verify 10/05/2023 12:00 PM POWDERED SUGAR PULVERIZER OPERATOR 50 mcg/hr 5 mL/hr Rate/Dose Verify 10/05/2023 11:00 AM POWDERED SUGAR PULVERIZER OPERATOR 50 mcg/hr 5 mL/h r Rate/Dose Change 10/05/2023 10:19 AM POWDERED SUGAR PULVERIZER OPERATOR 50 mcg/hr 5 mL/h r fentaNYL bolus from bag 25 mcg (SUBLIMAZE) 25 mcg, intravenous, Every 1 hour PRN, severe pain or score 7-10 of 10, sedation, Starting on Sat10/04/23 at 1601 Bolus from Bag 10/05/2023 6:12 AM POWDERED SUGAR PULVERIZER OPERATOR 25 mcg Bolus from Bag 10/05/2023 4:26 AM POWDERED SUGAR PULVERIZER OPERATOR 25 mcg Bolus from Bag 10/05/2023 2:36 AM POWDERED SUGAR PULVERIZER OPERATOR 25 mcg fluconazole in NaCl 0.9 % (iso osm) IVPB 400 mg (DIFLUCAN) 400 mg, intravenous, at 100 mL/hr, Every 24 hours, First dose on Sat10/04/23 at 1600, Drug Monitoring Program: Pharmacist to adjust medication dosing based on indication and drug clearance factors., Indications: Intra-abdominal infection, healthcare associated New Bag 10/04/2023 4:46 PM POWDERED SUGAR PULVERIZER OPERATOR 400 mg 100 mL/hr heparin (porcine) 1,000 [...] Heparin resumed Rate/Dose Verify 10/05/2023 12:00 PM POWDERED SUGAR PULVERIZER OPERATOR 12 Units/kg/hr 9.07 mL/hr Rate/Dose Verify 10/05/2023 11:00 AM POWDERED SUGAR PULVERIZER OPERATOR 12 Units/kg/hr 9. 07 mL/hr Rate/Dose Verify 10/05/2023 10:00 AM POWDERED SUGAR PULVERIZER OPERATOR 12 Units/kg/hr 9. 07 mL/hr hydrocortisone sodium succinate (PF) injection 100 mg (Solu-CORTEF) 100 mg, intravenous, Every 8 hours, First dose on Sat10/04/23 at 1900, IV push over 30 seconds per 100 mg (For doses 500 mg or less) Given 10/05/2023 11:39 AM POWDERED SUGAR PULVERIZER OPERATOR 100 mg Given 10/05/2023 3:21 AM POWDERED SUGAR PULVERIZER OPERATOR 100 mg Given 10/04/2023 7:37 PM POWDERED SUGAR PULVERIZER OPERATOR 100 mg insulin aspart U-100 injection 0-13 [...] writing Insulin orders Given 10/05/2023 11:57 AM POWDERED SUGAR PULVERIZER OPERATOR 2 Units Right Outer Thigh ketamine 2 mg/mL in NaCl 0.9 % 250 mL infusion (KETALAR) 0.1-0.5 mg/kg/hr ? 75.6 kg Dosing weight (3.78-18.9 mL/hr), intravenous, Continuous, Starting on Sat10/05/23 at 0400, Initiate at 0.1 mg/kg/min; titrate by 0.05 every 15 minutes to goal RASS of -1. Range 0.1-0.5 mg/kg/min 500 mg in 250 mL Rate/Dose Verify 10/05/2023 12:00 PM POWDERED SUGAR PULVERIZER OPERATOR 0.3 mg/kg/hr 11.3 mL/hr Rate/Dose Verify 10/05/2023 11:00 AM POWDERED SUGAR PULVERIZER OPERATOR 0.3 mg/kg/hr 11.3 mL/hr Rate/Dose Verify 10/05/2023 10:00 AM POWDERED SUGAR PULVERIZER OPERATOR 0.3 mg/kg/hr 11.3 mL/hr Lactated Ringer's 250 mL/hr, intravenous, Continuous, Starting on Sat10/05/23 at 1230, For 20 hours New Bag 10/05/2023 12:21 PM POWDERED SUGAR PULVERIZER OPERATOR 250 mL/hr 250 mL/hr levothyroxine injection 168 mcg 168 mcg, intravenous, Daily, First dose on Sat10/06/23 at 0900, For 2 doses, IV push over 1 minute NaCl 0.9 % bolus 250 mL 250 mL, intravenous, at 500 mL/hr, Administer over 30 Minutes, Every 12 hours, First dose on Sat10/04/23 at 1830, Administer 30 minutes before acyclovir dose New Bag 10/05/2023 5:56 AM POWDERED SUGAR PULVERIZER OPERATOR 250 mL 500 mL/hr New Bag 10/04/2023 8:07 PM POWDERED SUGAR PULVERIZER OPERATOR 250 mL 500 mL/hr NaCl 0.9 % bolus 250 mL 250 mL, intravenous, at 500 mL/hr, Administer over 30 Minutes, Every 12 hours, First dose on Sat10/04/23 at 2000, Administer after acyclovir dose New Bag 10/05/2023 7:42 AM POWDERED SUGAR PULVERIZER OPERATOR 250 mL 500 mL/hr New Bag 10/04/2023 8:39 PM POWDERED SUGAR PULVERIZER OPERATOR 250 mL 500 mL/hr NaCl 0.9% infusion [...] MAP 65-75 New Bag 10/05/2023 12:10 PM POWDERED SUGAR PULVERIZER OPERATOR 0.3 mcg/kg/min 79.9 mL/hr Rate/Dose Verify 10/05/2023 12:00 PM POWDERED SUGAR PULVERIZER OPERATOR 0.3 mcg/kg/min 79 .9 mL/hr Rate/Dose Verify 10/05/2023 11:00 AM POWDERED SUGAR PULVERIZER OPERATOR 0.3 mcg/kg/min 79 .9 mL/hr ondansetron (PF) [...] MAP 65-75 Rate/Dose Verify 10/05/2023 12:00 PM POWDERED SUGAR PULVERIZER OPERATOR 0.4 mcg/kg/min 22.7 mL/hr Rate/Dose Change 10/05/2023 11:49 AM POWDERED SUGAR PULVERIZER OPERATOR 0.4 mcg/kg/min 22 .7 mL/hr Rate/Dose Verify 10/05/2023 11:00 AM POWDERED SUGAR PULVERIZER OPERATOR 0.5 mcg/kg/min 28 .4 mL/hr piperacillin-tazobactam in dextrose (iso osm) IVPB 3.375 g (ZOSYN) 3.375 g, intravenous, at 100 mL/hr, Administer over 0.5 Hours, Every 6 hours, First dose on Sat10/04/23 at 1600, Drug Monitoring Program: Pharmacist to adjust medication dosing based on indication and drug clearance factors., Indications: Intra-abdominal infection, healthcare associated New Bag 10/05/2023 9:18 AM POWDERED SUGAR PULVERIZER OPERATOR 3.375 g 100 mL/hr New Bag 10/05/2023 3:47 AM POWDERED SUGAR PULVERIZER OPERATOR 3.375 g 100 mL/hr New Bag 10/04/2023 9:44 PM POWDERED SUGAR PULVERIZER OPERATOR 3.375 g 100 mL/hr vasopressin 20 unit/100 mL (0.2 unit/mL) in D5W 100 mL infusion (PITRESSIN) 0.04 Units/min (12 mL/hr), intravenous, Continuous, Starting on Sat10/04/23 at 1545, 20 units in 100 mL Rate/Dose Verify 10/05/2023 12:00 PM POWDERED SUGAR PULVERIZER OPERATOR 0.04 Units/min 12 mL/hr Rate/Dose Verify 10/05/2023 11:00 AM POWDERED SUGAR PULVERIZER OPERATOR 0.04 Units/min 12 mL/hr New Bag 10/05/2023 10:40 AM POWDERED SUGAR PULVERIZER OPERATOR 0.04 Units/min 12 mL/hr Inactive Administered Medications - up to 3 most recent administrations Medication Order MAR Action Action Date Dose Rate Site albumin human 25 % injection 25 g 25 g, intravenous, Once, On Sat10/04/23 at 2215, For 1 dose, If no infusion rate specified: Administer the 25% solution at 100 mL/hr New Bag 10/04/2023 11:05 PM POWDERED SUGAR PULVERIZER OPERATOR 25 g 100 mL/hr albumin human 25 % injection 25 g 25 g, intravenous, Once, On Sat10/04/23 at 2215, For 1 dose, If no infusion rate specified: Administer the 25% solution at 100 mL/hr New Bag 10/04/2023 11:08 PM POWDERED SUGAR PULVERIZER OPERATOR 25 g 100 mL/hr fentaNYL injection 25 mcg (SUBLIMAZE) 25 mcg, intravenous, Every 2 min PRN, moderate pain or score 4-6 of 10, severe pain or score 7-10 of 10, Starting on Sat10/04/23 at 1205, PACU (only), Up to maximum total dose of 100 mcg Given 10/04/2023 12:35 PM POWDERED SUGAR PULVERIZER OPERATOR 25 mcg Given 10/04/2023 12:19 PM POWDERED SUGAR PULVERIZER OPERATOR 25 mcg fentaNYL injection 50 mcg (SUBLIMAZE) 50 mcg, intravenous, Every 1 hour PRN, severe pain or score 7-10 of 10, Starting on Sat10/04/23 at 0814, For 3 doses Given 10/04/2023 8:38 AM POWDERED SUGAR PULVERIZER OPERATOR 50 mcg fentaNYL injection 50 mcg (SUBLIMAZE) 50 mcg, intravenous, Once, On Sat10/04/23 at 1212, For 1 dose, Up to maximum total dose of 200 mcg Given 10/04/2023 12:13 PM POWDERED SUGAR PULVERIZER OPERATOR 25 mcg fentaNYL injection 75 mcg (SUBLIMAZE) 75 mcg, intravenous, Every 1 hour PRN, severe pain or score 7-10 of 10, Starting on Sat10/04/23 at 0850, For 2 doses Given 10/04/2023 8:55 AM POWDERED SUGAR PULVERIZER OPERATOR 75 mcg heparin (porcine) 100 Units/mL in NaCl 0.45% [...] Repeat antiXa: 6 hours after Heparin resumed Rate/Dose Verify 10/04/2023 11:00 PM POWDERED SUGAR PULVERIZER OPERATOR 12 Units/kg/hr 9.07 mL/hr New Bag 10/04/2023 10:17 PM POWDERED SUGAR PULVERIZER OPERATOR 12 Units/kg/hr 9.07 mL/ hr HYDROmorphone (PF) injection 0.5 mg (DILAUDID) 0.5 mg, intravenous, Once, On Sat10/04/23 at 0913, For 1 dose Given 10/04/2023 9:17 AM POWDERED SUGAR PULVERIZER OPERATOR 0.5 mg HYDROmorphone (PF) injection 1 mg (DILAUDID) 1 mg, intravenous, Every 1 hour PRN, severe pain or score 7-10 of 10, Starting on Sat10/04/23 at 1001 Given 10/04/2023 11:19 AM POWDERED SUGAR PULVERIZER OPERATOR 1 mg Given 10/04/2023 10:04 AM POWDERED SUGAR PULVERIZER OPERATOR 1 mg HYDROmorphone (PF) injection 1 mg (DILAUDID) 1 mg, intravenous, Once, On Sat10/04/23 at 1029, For 1 dose Given 10/04/2023 10:34 AM POWDERED SUGAR PULVERIZER OPERATOR 1 mg insulin regular 1 Unit/mL in NaCl [...] Factor: 0.03 Rate/Dose Verify 10/05/2023 5:03 AM POWDERED SUGAR PULVERIZER OPERATOR 0.6 Units/hr 0.6 mL/hr Rate/Dose Verify 10/05/2023 5:00 AM [employer] OPERATOR 0.6 Units/hr 0.6 m L/hr Rate/Dose Change 10/05/2023 4:15 AM [employer] OPERATOR 0.6 Units/hr 0.6 m L/hr iohexoL 300 mg iodine/mL solution 1-200 mL (OMNIPAQUE) 1-200 mL, intravenous, Once in imaging, contrast, Starting on Sat10/04/23 at 0934, For 1 dose, Imaging Protocol Orders, Dose per Radiant Medication Guidelines Given 10/04/2023 9:42 AM [employer] OPERATOR 140 mL ketamine injection 5 mg (KETALAR) 5 mg, intravenous, Once, On Sat10/05/23 at 0330, For 1 dose Given 10/05/2023 3:19 AM [employer] OPERATOR 5 mg Lactated Ringer's bolus 1,000 mL 1,000 mL, intravenous, at 2,000 mL/hr, Administer over 30 Minutes, Once, On Sat10/04/23 at 1600, For 1 dose New Bag 10/04/2023 4:17 PM [employer] OPERATOR 1,000 mL 2000 mL/hr Lactated Ringer's bolus 1,000 mL 1,000 mL, intravenous, at 2,000 mL/hr, Administer over 30 Minutes, Once, On Sat10/04/23 at 1815, For 1 dose New Bag 10/04/2023 6:21 PM [employer] OPERATOR 1,000 mL 2000 mL/hr Lactated Ringer's bolus 1,000 mL 1,000 mL, intravenous, at 2,000 mL/hr, Administer over 30 Minutes, Once, On Sat10/04/23 at 1900, For 1 dose New Bag 10/04/2023 8:07 PM [employer] OPERATOR 1,000 mL 2000 mL/hr Lactated Ringer's bolus 1,000 mL 1,000 mL, intravenous, at 2,000 mL/hr, Administer over 30 Minutes, Once, On Sat10/04/23 at 2145, For 1 dose New Bag 10/04/2023 9:50 PM [employer] OPERATOR 1,000 mL 2000 mL/hr Lactated Ringer's bolus 1,000 mL 1,000 mL, intravenous, at 1,000 mL/hr, Administer over 1 Hours, Once, On 10/05/23 at 0345, For 1 dose New Bag 10/05/2023 3:27 AM [employer] OPERATOR 1,000 mL 1000 mL/hr Lactated Ringer's bolus 1,000 mL 1,000 mL, intravenous, at 250 mL/hr, Administer over 4 Hours, Once, On Sat10/05/23 at 0815, For 1 dose New Bag 10/05/2023 8:08 AM [employer] OPERATOR 1,000 mL 250 mL/hr Lactated Ringer's 250 mL/hr, intravenous, Continuous, Starting on Sat10/04/23 at 1600, For 21 hours Rate/Dose Verify 10/05/2023 12:00 PM [employer] OPERATOR 250 mL/hr 250 mL/hr Rate/Dose Verify 10/05/2023 11:00 AM [employer] OPERATOR 250 mL/hr 250 mL /hr Rate/Dose Verify 10/05/2023 10:00 AM [employer] OPERATOR 250 mL/hr 250 mL /hr levothyroxine injection 84 mcg 84 mcg, intravenous, Once, On 10/05/23 at 0700, For 1 dose, IV push over 1 minute Given 10/05/2023 6:20 AM [employer] OPERATOR 84 mcg magnesium sulfate in water IVPB 2 g 2 g, intravenous, at 25 mL/hr, Administer over 120 Minutes, Once, On 10/05/23 at 0615, For 1 dose New Bag 10/05/2023 5:59 AM [employer] OPERATOR 2 g 25 mL/hr magnesium sulfate in water IVPB 4 g 4 g, intravenous, at 25 mL/hr, Administer over 240 Minutes, Once, On Sat10/04/23 at 1730, For 1 dose New Bag 10/04/2023 7:26 PM [employer] OPERATOR 4 g 25 mL/hr NaCl 0.45 % infusion 20 mL/hr, intravenous, Continuous Infusion: Per Instructions [...] of 0.45% NaCL infusion at 20 ml/hr. Rate/Dose Verify 10/05/2023 5:00 AM POWDERED SUGAR PULVERIZER OPERATOR 20 mL/hr 20 mL/hr Rate/Dose Verify 10/05/2023 4:00 AM POWDERED SUGAR PULVERIZER OPERATOR 20 mL/hr 20 mL/h r Rate/Dose Verify 10/05/2023 3:00 AM POWDERED SUGAR PULVERIZER OPERATOR 20 mL/hr 20 mL/h r NaCl 0.9 % bolus 1,000 mL 1,000 mL, intravenous, at 1,000 mL/hr, Administer over 1 Hours, Once, On Sat10/04/23 at 0951, For 1 dose New Bag 10/04/2023 9:59 AM POWDERED SUGAR PULVERIZER OPERATOR 1,000 mL 1000 mL/hr NaCl 0.9 % bolus 1,000 mL 1,000 mL, intravenous, at 1,000 mL/hr, Administer over 1 Hours, Once, On Sat10/04/23 at 1020, For 1 dose New Bag 10/04/2023 10:34 AM POWDERED SUGAR PULVERIZER OPERATOR 1,000 mL 1000 mL/hr ondansetron (PF) injection 4 mg (ZOFRAN) 4 mg, intravenous, Once, On Sat10/04/23 at 0815, For 1 dose Given 10/04/2023 8:38 AM POWDERED SUGAR PULVERIZER OPERATOR 4 mg perflutren lipid microspheres injection (DEFINITY) intravenous, Once in imaging, contrast, Starting on Sat10/05/23 at 0842, For 1 dose, Intraprocedure - Diagnostic, See protocol. Given 10/05/2023 8:43 AM POWDERED SUGAR PULVERIZER OPERATOR 3 mL piperacillin-tazobactam in dextrose (iso osm) IVPB 3.375 g (ZOSYN) 3.375 g, intravenous, at 100 mL/hr, Administer over 0.5 Hours, Once, On Sat10/04/23 at 1007, For 1 dose, Drug Monitoring Program: Pharmacist to adjust medication dosing based on indication and drug clearance factors., Indications: Intra-abdominal infection, healthcare associated New Bag 10/04/2023 10:10 AM POWDERED SUGAR PULVERIZER OPERATOR 3.375 g 100 mL/hr potassium chloride IVPB 20 mEq 20 mEq, intravenous, at 50 mL/hr, Administer over 60 Minutes, Every 1 hour, First dose on Sat10/04/23 at 1700, For 1 dose, Central Line with Telemetry: 20 mEq per bag over 1 hour each. New Bag 10/04/2023 8:20 PM POWDERED SUGAR PULVERIZER OPERATOR 20 mEq 50 mL/hr propofol 10 mg/mL infusion (DIPRIVAN) 5-80 mcg/kg/min ? 71 kg Dosing weight (2.13-34.08 mL/hr), intravenous, Continuous, Starting on Sat10/04/23 at 1600, Type: Titrate, Initiate at: 5 mcg/kg/min., Titrate at: 5 mcg/kg/min. every 5 min., Goal: For sedation - refer to titratable arousal order for RASS goal Rate/Dose Verify 10/05/2023 5:00 AM POWDERED SUGAR PULVERIZER OPERATOR 5 mcg/kg/min 2.13 mL/hr Rate/Dose Verify 10/05/2023 4:00 AM POWDERED SUGAR PULVERIZER OPERATOR 5 mcg/kg/min 2.13 mL/hr Rate/Dose Verify 10/05/2023 3:00 AM POWDERED SUGAR PULVERIZER OPERATOR 5 mcg/kg/min 2.13 mL/hr sodium chloride (PF) 0.9 % injection 1-100 mL 1-100 mL, intravenous, Once, On Sat10/04/23 at 0935, For 1 dose, Imaging Protocol Orders Given 10/04/2023 9:42 AM POWDERED SUGAR PULVERIZER OPERATOR 50 mL vancomycin in NaCl 0.9% IVPB 1,500 mg 1,500 mg (rounded from 1,418 mg = 20 mg/kg ? 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 Scheduled Medication Order 10/03/2023 10/04/2023 10/05/2023 acyclovir 400 mg in NaCl 0.9% IVPB (ZOVIRAX) 400 mg, intravenous, at 108 mL/hr, Administer over 60 Minutes, Every 12 hours, First dose on Sat10/04/23 at 1900, Do NOT refrigerate., Drug Monitoring Program: Pharmacist to adjust medication dosing based on indication and drug clearance factors., Indications: Prophylaxis, medical 2017 (New Bag - Provider: Cate Mckinney R.N., TCRN, CCRN - Comment: insufficient access) 0039 (NOV [...] Provider, Automatic)0838 (Given - Provider: Paul Saucedo RJohannaN.)2099 (Due) famotidine injection 20 mg (PEPCID) 20 mg, intravenous, 2 times daily, First dose on Sat10/04/23 at 2100, Drug Monitoring Program: Pharmacist to adjust medication dosing based on indication and drug clearance factors. 2041 (Given - Provider: Cate Mckinney R.N., BRAXTONN, CCRN) 003 (NOV Hold - Provider: Transfer Provider, Automatic - Reason: Patient not available)0150 (NOV Unhold - Provider: Transfer Provider, Automatic)0838 (Given - Provider: Paul Saucedo R.N.)2100 (Due) fentaNYL injection 50 mcg (SUBLIMAZE) (COMPLETED) 50 mcg, intravenous, Once, On Sat10/04/23 at 1212, For 1 dose, Up to maximum total dose of 200 mcg 1213 (Given - Provider: Aaliyah Nieves RDanuta) fluconazole in NaCl 0.9 % (iso osm) IVPB 400 mg (DIFLUCAN) 400 mg, intravenous, at 100 mL/hr, Every 24 hours, First dose on Sat10/04/23 at 1600, Drug Monitoring Program: Pharmacist to adjust medication dosing based on indication and drug clearance factors., Indications: Intra-abdominal infection, healthcare associated 1646 (New Bag - Provider: Prashant Perez RDanuta) 1600 (Due) hydrocortisone sodium succinate (PF) injection 100 mg (Solu-CORTEF) 100 mg, intravenous, Every 8 hours, First dose on Sat10/04/23 at 1900, IV push over 30 seconds per 100 mg (For doses 500 mg or less) 1937 (Given - Provider: Cate Mckinney R.N., TCRN, CCRN) 0039 (NOV Hold - Provider: Transfer Provider, Automatic - Reason: Patient not available)0150 (MAR Unhold - Provider: Transfer Provider, Automatic)0321 (Given - Provider: Cate Mckinney R.N., TCRN, CCRN)1139 (Given - Provider: Paul Saucedo RDanuta)1900 (Due) hydrocortisone sodium succinate (PF) injection 100 [...] (Given - Provid er: Cate Mckinney R.N., BRAXTONN, CCRN) Lactated Ringer's bolus [...] - Provider: Cate Mckinney R.N., BRAXTONN, CCRN) Lactated Ringer's bolus 1,000 mL (COMPLETED) 1,000 mL, intravenous, at 1,000 mL/hr, Administer over 1 Hours, Once, On 10/05/23 at 0345, For 1 dose 0327 (New Bag - Provider: Cate Mckinney R.N., BRAXTONN, CCRN) Lactated Ringer's bolus 1,000 mL (COMPLETED) 1,000 mL, intravenous, at 250 mL/hr, Administer over 4 Hours, Once, On 10/05/23 at 0815, For 1 dose 0808 (New Bag - Provider: Paul Saucedo R.N.) levothyroxine injection 168 mcg 168 mcg, intravenous, Daily, First dose on Sat10/06/23 at 0900, For 2 doses, IV push over 1 minute 0039 ([facility] Hold - Provider: Transfer Provider, Automatic - Reason: Patient not available)0150 ([facility] Unhold - Provider: Transfer Provider, Automatic) levothyroxine injection 84 mcg (COMPLETED) 84 mcg, intravenous, Once, On 10/05/23 at 0700, For 1 dose, IV push over 1 minute 0039 ([facility] Hold - Provider: Transfer Provider, Automatic - Reason: Patient not available)0150 ([facility] Unhold - Provider: Transfer Provider, Automatic)0620 (Given - Provider: Cate Mckinney R.N., GELA, CCRN) magnesium sulfate in water IVPB 2 [...] Cate Mckinney R.N., GELA, CCRN - Comment: line placement in progress) [...] Provider: Cate Mckinney R.N., TCRN, CCRN) 0039 ([facility] Hold - Provider: Transfer Provider, Automatic - Reason: Patient not available)0150 ([facility] Unhold - Provider: Transfer Provider, Automatic)0556 (New Bag - Provider: Cate Mckinney R.N., TCRN, CCRN)1830 (Due) NaCl 0.9 % bolus 250 mL 250 mL, intravenous, at 500 mL/hr, Administer over 30 Minutes, Every 12 hours, First dose on Sat10/04/23 at 2000, Administer after acyclovir dose 2039 (New Bag - Provider: Cate Mckinney R.N., TCRN, CCRN) 0039 ([facility] Hold - Provider: Transfer Provider, Automatic - Reason: Patient not available)0150 ([facility] Unhold - Provider: Transfer Provider, Automatic)0742 (New Bag - Provider: Paul Saucedo RDanuta)1999 (Due) ondansetron (PF) injection 4 mg (ZOFRAN) [...] clearance factors., Indications: Intra-abdominal infection, community acquired 2240 (New Bag - Provider: Cate Mckinney R.N., TCRN, CCRN) Continuous Medication Order 10/03/2023 10/04/2023 10/05/2023 [...] CCRN)2057 (Stopped - Provider: Cate Mckinney R.N., BRAXTONN, CCRN - Comment: per sicu)2114 (Restarted - [...] Verify - Provider: Cate Mckinney R.N., BRAXTONN, CCRN)2334 (Stopped - Provider: Cate Mckinney R.N., [...] R.N., TCRN, CCRN)0800 (Rate/Dose Verify - Provider: Sherry Preston.N.)0900 (Rate/Dose Verify - Provider: Paul Saucedo R.N.)0915 (Rate/Dose Verify - Provider: Paul Saucedo R.N. - Comment: [Action automatically changed])1000 (Rate/Dose Verify - Provider: Sherry Preston.N.)1100 (Rate/Dose Verify - Provider: Sherry Preston.N.)1200 (Rate/Dose [...] TCRN, CCRN)2100 (Rate/Dose Verify - Provider: Cate E Hank, R.N., TCRN, CCRN)2200 (Rate/Dose Verify - Provider: Cate Mckinney R.N., TCRN, CCRN)2300 (Rate/Dose Verify - Provider: Cate Mckinney R.N., TCRN, CCRN)2326 (New Bag - Provider: Sherry Lara.N., TCRN, CCRN) 0000 (Rate/Dose Verify - Provider: Sherry Lara.N., TCRN, CCRN)0200 (Rate/Dose Verify - Provider: Sherry Lara.N., TCRN, CCRN)0300 (Rate/Dose Verify - Provider: Cate Mckinney R.N., TCRN, CCRN)0400 (Rate/Dose Verify - Provider: Cate Mckinney R.N., TCRN, CCRN)0500 (Rate/Dose Verify - Provider: Sherry Lara.N., TCRN, CCRN)0526 (New Bag - Provider: Cate Mckinney R.N., TCRN, CCRN)0600 (Rate/Dose Verify - Provider: Sherry Lara.N., TCRN, CCRN)0700 (Rate/Dose Verify - Provider: Sherry Lara.N., TCRN, CCRN)0800 (Rate/Dose Verify - Provider: Paul Saucedo R.N.)0808 (New Bag - Provider: Paul Saucedo RGreg.)0900 (Rate/Dose Verify - Provider: Paul Saucedo R.N.)1000 (Rate/Dose Verify - Provider: Sherry Preston.N.)1100 (Rate/Dose Verify - Provider: Sherry Preston.N.)1200 (Rate/Dose Verify - Provider: Paul Saucedo R.N.) Lactated Ringer's 250 mL/hr, intravenous, Continuous, Starting on 10/05/23 at 1230, For 20 hours 1221 (New Bag - Prov ider: Paul Saucedo R.Alvaro.) norepinephrine 16 mcg/mL in D5W 250 mL [...] (New Bag - Provider: Keena Diggs APRN, SAL)1329 (Rate/Dose Change - Provider: Keena Diggs APRN, SAL)1544 (Stopped - Provider: Linh Vallejo R.N., KORYN) norepinephrine 16 mcg/mL in D5W 250 mL [...] Vallejo R.N., CCRN)1600 (Rate/Dose Change - Provider: Sherry Bazan.N.)1605 (Rate/Dose Change - Provider: Sherry Bazan.N.)1611 (Rate/Dose Change - Provider: Sherry Bazan.N.)1655 (Rate/Dose Change - Provider: Sherry Bazan.N.)1704 (Rate/Dose Change - Provider: Sherry Bazan.N.)1716 (Rate/Dose Change - Provider: Sherry Bazan.N.)1721 (Rate/Dose Change - Provider: Prashant Perez, R.N.)1743 (Rate/Dose Change - Provider: Prashant Perez, R.N.)1752 (New Bag - Provider: Prashant Perez, R.N.)1800 (Rate/Dose Verify - Provider: Prashant Perez R.N.)1901 (Rate/Dose Change - Provider: Cate Mckinney, R.N., TCRN, CCRN)1908 (Rate/Dose Change - Provider: Cate Mckinney R.N., TCRN, CCRN)1999 (Rate/Dose Verify - Provider: Cate Mckinney R.N., TCRN, CCRN)2000 (Rate/Dose Change - Provider: Cate Mckinney R.N., TCRN, CCRN)2022 (Rate/Dose Change - Provider: Cate Mckinney R.N., TCRN, CCRN)2049 (Rate/Dose Change - Provider: Cate Mckinney, R.N., TCRN, CCRN)205 (Rate/Dose Change - Provider: Cate Mckinney, R.N., TCRN, CCRN)2100 (Rate/Dose Verify - Provider: Cate Mckinney, R.N., TCRN, CCRN)2104 (Rate/Dose Change - Provider: Cate Mckinney R.N., TCRN, CCRN)2140 (New Bag - Provider: Cate Mckinney, R.N., TCRN, CCRN)2200 (Rate/Dose Verify - Provider: Cate Mckinney R.N., TCRN, CCRN)2300 (Rate/Dose Verify - Provider: Cate Mckinney, R.N., TCRN, CCRN) 0000 (Rate/Dose Verify - Provider: Cate Mckinney, R.N., TCRN, CCRN)0033 (Rate/Dose Verify - Provider: Kayla Spencer M.D.)0056 (Rate/Dose Change - Provider: Kayla Spencer M.D.)0057 (Rate/Dose Change - Provider: Kayla Spencer M.D.)0117 (Rate/Dose Change - Provider: Kayla Spencer M.D.)0150 (Rate/Dose Change - Provider: Kayla Spencer M.D.)0200 (Rate/Dose Verify - Provider: Sherry Lara.NJohanna, TCRN, CCRN)0237 (Rate/Dose Change - Provider: Sherry Lara.N., TCRN, CCRN)0300 (Rate/Dose Verify - Provider: Sherry Lara.NJohanna, TCRN, CCRN)0345 (New Bag - Provider: Sherry Lara.NJohanna, TCRN, CCRN)0400 (Rate/Dose Verify - Provider: Sherry Lara.N., TCRN, CCRN)0500 (Rate/Dose Verify - Provider: Sherry Lara.NJohanna, TCRN, CCRN)0600 (Rate/Dose Verify - Provider: Sherry Lara.NJohanna, TCRN, CCRN)0632 (New Bag - Provider: Sherry Lara.NJohanna, TCRN, CCRN)0700 (Rate/Dose Verify - Provider: Sherry Lara.NJohanna, TCRN, CCRN)0800 (Rate/Dose Verify - Provider: Paul Saucedo RGreg.)0900 (Rate/Dose Verify - Provider: Paul Saucedo R.N.)0922 (New Bag - Provider: Paul Saucedo R.N.)1000 (Rate/Dose Verify - Provider: Sherry Preston.N.)1100 (Rate/Dose Verify - Provider: Sherry Preston.N.)1200 (Rate/Dose Verify - Provider: Sherry Preston.N.)1210 (New Bag - Provider: Paul Saucedo R.N.) [...] Mckinney R.N., TCRN, CCRN)2134 (Stopped - Provider: Sherry Lara.N., TCRN, CCRN)2250 (Restarted - Provider: Sherry Lara.N., TCRN, CCRN)2259 (Rate/Dose Change - Provider: Cate Mckinney R.N., TCRN, CCRN)2300 (Rate/Dose Verify - Provider: Sherry Lara.N., TCRN, CCRN)2316 (Rate/Dose Change - Provider: Sherry Lara.N., TCRN, CCRN)2345 (Rate/Dose Change - Provider: Sherry Lara.N., TCRN, CCRN)2351 (Rate/Dose Change - Provider: Cate Mckinney R.N., TCRN, CCRN) 0000 (Rate/Dose Verify - Provider: Cate Mckinney R.N., TCRN, CCRN)0005 (Rate/Dose Change - Provider: Sherry Lara.N., TCRN, CCRN)0033 (Rate/Dose Verify - Provider: Kayla Spencer M.D.)0200 (Rate/Dose Verify - Provider: Cate Mckinney R.N., TCRN, CCRN)0241 (Rate/Dose Change - Provider: Cate Mckinney R.N., TCRN, CCRN)0300 (Rate/Dose Verify - Provider: Cate Mckinney R.N., TCRN, CCRN)0304 (Rate/Dose Change - Provider: Cate Mckinney R.N., TCRN, CCRN)0350 (Rate/Dose Change - Provider: Sherry Lara.N., TCRN, CCRN)0400 (Rate/Dose Verify - Provider: Cate Mckinney R.N., TCRN, CCRN)0432 (New Bag - Provider: Cate Mckinney R.N., TCRN, CCRN)0500 (Rate/Dose Verify - Provider: Cate Mckinney R.N., TCRN, CCRN)0600 (Rate/Dose Verify - Provider: Cate Mckinney R.N., TCRN, CCRN)0700 (Rate/Dose Verify - Provider: Cate Mckinney R.N., TCRN, CCRN)0800 (Rate/Dose Verify - Provider: Sherry Preston.N.)0830 (Rate/Dose Change - Provider: Paul Saucedo R.N.)0900 (Rate/Dose Verify - Provider: Paul Saucedo R.N.)0910 (New Bag - Provider: Paul Saucedo R.N.)0923 (Rate/Dose Change - Provider: Sherry Preston.N.)0939 (Rate/Dose Change - Provider: Sherry Preston.N.)0958 (Rate/Dose Change - Provider: Paul Saucedo R.N.)1000 [...] R.N., CCRN)1800 (Rate/Dose Verify - Provider: Prashant R Perez, R.N.)1844 (Stopped - Provider: Prashant Perez R.N.)1924 (Restarted - Provider: Cate Mckinney, R.NJohanna, TCRN, CCRN)1936 (Rate/Dose Change - Provider: Sherry Lara.NJohanna, TCRN, CCRN)2000 (Rate/Dose Verify - Provider: Cate Mckinney R.N., TCRN, CCRN)2100 (Rate/Dose Verify - Provider: Cate Mckinney R.N., TCRN, CCRN)2104 (Rate/Dose Change - Provider: Cate Mckinney, Sherry.NJohanna, TCRN, CCRN)2200 (Rate/Dose Verify - Provider: Sherry Lara.NJohanna, TCRN, CCRN)2300 (Rate/Dose Verify - Provider: Sherry Lara.N., TCRN, CCRN) 0000 (Rate/Dose Verify - Provider: Sherry Lara.NJohanna, TCRN, CCRN)0200 (Rate/Dose Verify - Provider: Cate Mckinney R.N., TCRN, CCRN)0300 (Rate/Dose Verify - Provider: Cate Mckinney, Sherry.N., TCRN, CCRN)0400 (Rate/Dose Verify - Provider: Cate Mckinney, R.NJohanna, TCRN, CCRN)0500 (Rate/Dose Verify - Provider: Cate Mckinney R.N., TCRN, CCRN) vasopressin 20 unit/100 mL (0.2 unit/mL) in D5W 100 mL infusion (PITRESSIN) (CANCELED) 0.04 Units/min (12 mL/hr), intravenous, Continuous, Starting on Sat10/04/23 at 1324, Intra-Op, 20 units in 100 mL 1402 (New Bag - Provider: Keena Diggs HUMANE OFFICER, BODY REPAIRER) vasopressin 20 unit/100 mL (0.2 unit/mL) in D5W 100 mL infusion (PITRESSIN) 0.04 Units/min (12 mL/hr), intravenous, Continuous, Starting on Sat10/04/23 at 1545, 20 units in 100 mL 1546 (New Bag - Provider: Linh S Yoni, R.N., CCRN)1800 (Rate/Dose Verify - Provider: Prashant Perez R.N.)2000 (Rate/Dose Verify - Provider: Cate Mckinney R.NJohanna, TCRN, CCRN)2017 (New Bag - Provider: Sherry Lara.NJohanna, TCRN, CCRN)2100 (Rate/Dose Verify - Provider: Sherry Lara.N., TCRN, CCRN)2200 (Rate/Dose Verify - Provider: Sherry Lara.N., TCRN, CCRN)2300 (Rate/Dose Verify - Provider: Sherry Lara.NJohanna, TCRN, CCRN) 0000 (Rate/Dose Verify - Provider: Sherry Lara.N., TCRN, CCRN)0033 (Rate/Dose Verify - Provider: Kayla Spencer M.D.)0200 (Rate/Dose Verify - Provider: Sherry Lara.NJohanna, TCRN, CCRN)0300 (Rate/Dose Verify - Provider: Sherry Lara.N., TCRN, CCRN)0342 (New Bag - Provider: Sherry Lara.Shelby, TCRN, CCRN)0400 (Rate/Dose Verify - Provider: Sherry Lara.NJohanna, TCRN, CCRN)0500 (Rate/Dose Verify - Provider: Sherry Lara.NJohanna, TCRN, CCRN)0600 (Rate/Dose Verify - Provider: Sherry Lara.NJohanna, TCRN, CCRN)0700 (Rate/Dose Verify - Provider: Sherry Lara.N., TCRN, CCRN)0800 (Rate/Dose Verify - Provider: Paul Saucedo R.N.)0900 (Rate/Dose Verify - Provider: Sherry Preston.Alvaro.)1000 (Rate/Dose Verify - Provider: Sherry Preston.Alvaro.)1040 (New Bag - Provider: Paul Saucedo R.N.)1100 (Rate/Dose Verify - Provider: Paul Saucedo R.N.)1200 (Rate/Dose Verify - Provider: Paul Saucedo R.N.) PRN Medication Order 10/03/2023 10/04/2023 10/05/2023 BUPivacaine liposome (PF) 20 mL, BUPivacaine-EPINEPHrine (PF) 30 mL 50 mL injection (CANCELED) As needed, Starting on Sat10/04/23 at 1350, Intra-Op 1350 (Given - Provider: Rudy Lazar M.D.)1439 (Given - Provider: Rudy aLzar M.D.) fentaNYL bolus from bag 25 mcg [...] (Not Given - Provider: Belen Vasquez R.N., DORA - Reason: Discontinued) heparin (porcine) 1,000 unit/mL [...] 1004 (Given - Provider: Belen Vasquez R.N., [facility])1119 (Given - Provider: Melva Jc)1246 (MAR Hold - Provider: Transfer Provider, Automatic - Reason: Patient not available)1524 (MAR Unhold - Provider: Transfer Provider, Automatic) insulin [...] Verify - Provider: Cate Mckinney R.N., TCRN, CCRN)2016 (Rate/Dose Change - Provider: Cate Mckinney R.N., TCRN, CCRN)2100 (Rate/Dose Verify - Provider: Cate Mckinney R.N., TCRN, CCRN)2104 (Rate/Dose Change - Provider: Cate Mckinney R.N., TCRN, CCRN)2200 (Rate/Dose Verify - Provider: Cate Mckinney R.N., TCRN, CCRN)2207 (Rate/Dose Change - Provider: Cate Mckinney R.N., TCRN, CCRN)2300 (Rate/Dose Verify - Provider: Cate Mckinney R.N., TCRN, CCRN)2320 (Rate/Dose Change - Provider: Cate Mckinney R.N., TCRN, CCRN) 0000 (Rate/Dose Verify - Provider: Cate Mckinney R.N., TCRN, CCRN)0003 (Rate/Dose Change - Provider: Cate Mckinney R.N., TCRN, CCRN)0033 (Rate/Dose Verify - Provider: Kayla Spencer M.D.)0200 (Rate/Dose Verify - Provider: Cate Mckinney R.N., TCRN, CCRN)0211 (Rate/Dose Change - Provider: Cate Mckinney R.N., TCRN, CCRN)0300 (Rate/Dose Verify - Provider: Cate Mckinney R.N., TCRN, CCRN)0315 (Rate/Dose Verify - Provider: Cate Mckinney R.N., BRXATONN, CCRN - Comment: [Action automatically changed])0400 (Rate/Dose Verify - Provider: Cate Mckinney R.N., TCRN, CCRN)0415 (Rate/Dose Change - Provider: Cate Mckinney R.N., BRAXTONN, CCRN)0500 (Rate/Dose Verify - Provider: Cate Mckinney [...] R.N., TCRN, CCRN)2200 (Rate/Dose Verify - Provider: Sherry Lara.N., TCRN, CCRN)2300 (Rate/Dose Verify - Provider: Sherry Lara.N., TCRN, CCRN) 0000 (Rate/Dose Verify - Provider: Sherry Lara.N., TCRN, CCRN)0200 (Rate/Dose Verify - Provider: Cate [...] documented as of this encounter Care Teams Funding Coordinator Relationship Specialty Start Date End Date Elsewhere, Pcp PCP - General Internal Medicine 09/14/23 documented as of this encounter
--- OUTSIDE RECORDS SUMMARY | 2023-10-05 12:52 | XMS_ITS | Encounter Summary ---
Author Name Unknown Organization [facility] Address [address] [place] [phone] Care Team Providers Care Chief Financial Officer Name Role Phone Elsewhere, Pcp Primary Care Provider Unavailabl e Reason for Referral * Outpatient (Routine) - Authorized Specialty Diagnoses / Procedures Referred By Contac t Referred To Contact Hematology Oncology Arti Epstein M.B.B.S. [address] [place] [phone] [facility] Referral ID Status Reason Start Date Expiration Date V isits Requested Visits Authorized [id number] Authorized 10/03/2023 04/03/2025 [address] Yusuf Thomas R GENERATION TURBINE ROOM OPERATOR Encounter Details Date Type Department Care Team (Late st Contact Info) Description 10/03/2023 3:30 PM POWER GENERATION TURBINE ROOM OPERATOR Office Visit Division of Hematology in [place], [place] [address] [place] [phone] Arti Epstein M.B.B.S. [address] [place] [phone] Lymphoma Non Hodgkins (HCC) (Primary Dx); Obstruction Intestinal (HCC); Gastrojejunostomy Percutaneous Status Post ; Cork Tile Floor Layer Current Drug Therapy, Chemotherapy Social History Tobacco Use Types Packs/Day Years Used Date Smoking Tobacco: Former Cigarettes 1 22 Q uit: 02/07/1989 Passive Smoke Exposure: Never Smokeless Tobacco: Former Snuff, Chew Quit: 04/18/2023 Alcohol Use Standard Drinks/Week Comments Not Currently 3 (1 standard drink = 0.6 oz pur e alcohol) [facility] Utilities Answer Date Recorded In the [...] often do you attend chur ch or cheondoism services? Never 01/10/2023 Do you belong to any clubs o r organizations such as mosque groups, unions, fraternal or athletic groups, or [...] Date Recorded PHQ-2 Score 0 04/25/2020 [facility] - Occupational Stress Questionnaire Answer Date [...] your living situation today? I have a [facility] place to live 09/15/2023 Education [...] Sign Reading Time Taken Comments Blood Pressure - - Pulse - - Temperature 36 ??C (96.8 ??F) 10/03/2023 2:48 PM POWER GENERATION TURBINE ROOM OPERATOR Respiratory Rate - - Oxygen Saturation 98% 10/03/2023 2:48 PM POWER GENERATION TURBINE ROOM OPERATOR Inhaled Oxygen Concentration - - Weight - - Height - - Body Mass Index - - documented in this encounter Progress Notes * Arti Epstein M.B.B.S. - 10/03/2023 3:30 PM CST CHIEF COMPLAINT / REASON FOR VISIT DLBCL-NOS Primary Baseball Player: Dr. Castro HISTORY OF PRESENT ILLNESS Oncology History Overview Note May 2023: The patient was feeling unwell with mostly postprandial nausea, vomiting, abdominalpain and inability to tolerate PO intake. Since January 2023, he lost about 40 pounds but denied fever,night sweats or palpable lumps. He was hospitalized during mid April [address] [facility] due to his nausea, vomiting and abdominal discomfort and was found to have sepsis that was initially thought to be due to cholecystitis and later determined to be due to an duodenal mass causing dilated bile ducts as CT scans demonstrated nonobstructive mass-like thickening of the duodenum, predominantly involving the 3rd part of the duodenum with a mildly dilated common bile duct and distended gallbladder, and bedside ultrasound did not show any overt evidence of cholecystitis. During his hospital stay [facility], he had fevers and low hemoglobin in the 8-9 g per dL range as well as an ROMEO that improved with fluids. An EGD was performed on 04/24/2023 in [facility] which revealed a duodenal necrotizing ulcer which was biopsied, however, that was read as a necroinflammatory ulcer with duodenal mucosa, acute and chronic inflammation without evidence of active malignancy. He was treated with PPI and antibiotics despite no source of infection. He was discharged on 04/27/2023. April 29, 2023: The patient was readmitted after he was seen that [facility] in [facility] andfound to be hypotensive with a blood pressure of 78/39. He was referred to [facility] where he was hypotensive with SBP in the 70s but BP recovered, and he received 2 L of IV fluids. A CT of the abdomen and pelvis with contrast showed findings concerning for duodenal malignancy centered about the 3rd segment of the duodenum as well as an indeterminate subcapsular splenic lesion, and bladder wall thickening that was somewhat asymmetric. EGD w/ extended push enteroscopy was performed on 04/30/2023 which identified large circumferential infiltrative and ulcerated mass with no bleeding in the third portion of duodenum. Biopsies were obtained and sent for histopathology review with results coming back suspicious for B cell lymphoma buttissue was inadequate due to crushed artifact and degenerative changes. Lymphoid infiltrates stained positive extensively for CD20, PAX5, CD10, BCL6, and BCL2, and had an apparent proliferative rate by Ki-67 of at least 60%. Given his nausea, vomiting and PO intolerance, an NG tube was placed for tube feeds. He was discharged home on 05/07/23 with enteral nutrition. May 09, 2023: The patient was evaluated in the [facility]. A PET CT on 05/10/2023 demonstrated a primary duodenal mass but with uptake in several lymph nodes. Some were not contiguous with the duodenum thus making his him at stage IV. The plan was to repeat a biopsy. May 11, 2023 through May 23, 2023: The patient was hospitalized. He had difficulty tolerating feeds at home and began to experience emesis regardless of the rate or amount of feeds. He presented to the ED where CT imaging reconfirmed an FDG avid mass in the 3rd aspect of the duodenum andshowed a properly placed enteric tube with the tip in the distal jejunum, as well as gastric distention and mild inflammatory stranding involving the duodenum.The patient had his NJ tube replaced with a Dobbhoff with a gastric aspiration port and jejunal extension with 2 L of bilious fluid removed on placement. He had improved tolerance of tube feeds with gastric aspiration as needed During hospiyalization, EGD with duodenal biopsy was reperformed on 05/14/2023 with pathology suspicous for B cell lymphoma but again with crushed artifact. . CT guided mesenteric lymph node biopsy performed on 05/14/2023 which came back as double expressor germinal center DLBCL. Bone marrow biopsy on 05/14/2023 with normal immunophenotyping results as well as no morphologic or immunophenotypic features of involvement by lymphoma. EF 75%. On 05/20, his symptoms of nausea, vomiting had improved to the point that oral diet was trialed andsuccessful. On 05/21, NJ tube was removed During hospitalization, he received 4 total doses of IV methylprednisolone (05/16- 05/20/2023). Then he was started on Rituximab on 05/18. The remainder of chemotherapy was started (Preston-CHP) was given on05/21/2023. He received appropriate prophylactic medications including pentamidine (05/20), acyclovir, lansoprazole, allopurinol. June 10, 2023: The patient was treated with cycle 2. June 28, 2023: The patient had a PET scan. This demonstrated a marked interval decrease in masslike thickening of the duodenal. There was residual uptake in the duodenal with a locule of gas. If inflammatory, then this would be consistent with a Deauville score 2. July 02, 2023: The patient was re-evaluated in the [facility]. The patient had no new intervening issues. He noted an upset stomach intermittently. The hemoglobin is 10.4 grams/deciliter, platelet count 989931, and white count 09947. The metabolic panel was unremarkable. Alkaline phosphatase dropped from 157 to 139. The total protein increased from 5.6 to 5.9. There was no palpable lymphadenopathy. The patient was treated with cycle 3. Protonix was ordered. 4 cycles of Preston-R-CHP was completed on 07/22/23. Iinterim PET scan prior to cycle 3 showed excellent response but there was still a concern of residual focal uptake in the 3rd portion of the duodenal that if this was residual lymphoma will be a Deauville score of 4. Thus we repeated a PET CT scan prior to cycle 5 whish showed complete remission Deauville 3. Cycle 5 was completed on 08/12/23. Lymphoma Non Hodgkins (HCC) 05/14/2023 Biopsy/Pathology Lymph node, Mesenteric, fine needle aspiration (smears/cell block): Positive for malignancy. Diffuse large B-cell lymphoma. See comment. Immunoperoxidase studies were performed on paraffin sections of the mesenteric lymph node using antibodies directed against the following antigens: CD3, CD10, CD20, BCL2, BCL6, cyclin D1, Ki-67, MUM1, MYC. In situ hybridization was performed on paraffin-embedded sections of the mesenteric lymph node specimen using probes that recognize Cain-Macias virus encoded RNA (SALLIE). The needle biopsy shows fragments of lymphoid tissue diffusely infiltrated by an atypical population of medium-sized to large atypical lymphocytes. The atypical cells have dispersed chromatin and small nucleoli. By immunostains, they are positive for CD20, CD10 (100%), BCL6 (100%), BCL2 (100%), and MYC (50%). The proliferative rate by Ki-67 is nearly 100%. MUM1 is negative (0%). The tumor cells are negative for EBV and cyclin D1. CD3 stains small T-cells in the background. FISH analysis for double hit lymphoma, mesenteric lymph node, performed at [facility] in [place], [place] ([id number]; block A1; 05/17/2023): No rearrangement of MYC, BCL2 or BCL6 and no fusion of MYC and IGH was observed, therefore this makes unlikely the possibility of high-grade B-cell lymphoma with MYC and BCL2 and/or BCL6 rearrangements (double-hit lymphoma; Parul et al., WHO Classification of Tumours of Haematopoietic and Lymphoid Tissues, IARC Press:[place], 2017). See cytogenetic report for complete details. COMMENT The tumor has a germinal center phenotype by the Shoaib algorithm. 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 FISH did not show evidence of a genetic double hit. 05/18/2023 - Chemotherapy Preston-R-CHP Start Date: 05/18/2023 Biopsy/Pathology Biopsy/Pathology 08/09/2023 Complete Response Deauville score three after four cycles; proceed with cycles five and six with a 20% dose reduction; proceed with EGD August 13 INTERIM EVENTS 72-year-old male with DLBCL status post polaR-CHP x5 (last cycle 08/12/23) in complete remission. Hewas hospitalized on 09/14 - 10/02 due to abdominal pain, nausea and vomiting. CT scan showed a duodenal obstruction at the site of prior lymphoma involvement. EGD with biopsy was negative for lymphoma involvement, therefore obstruction is likely a treatment sequela. PEJ tube placement on 09/28 for nutrition optimization prior to surgery. Ultimately he will need surgical intervention for this stricture. For cycle 5 the dose of cyclophosphamide and doxorubicin was reduced by 20 % each for tolerability as his performance status has declined after chemotherapy and is becoming more weak despite his tumor responding well. He underwent an EGD after cycle 5 which showed ulcers found in the third portion of the duodenum. Cycle 6 was initially delayed because of a toe infection requiring Keflex x 10 days. He was then admitted for duodenal obstruction (above). Today he reports feeling better than when he was admitted to the hospital, but he is still quite fatigued. He would say his energy is around 30% of his baseline. He needs a wheelchair to mobilize most of the time. He is taking very minimal PO given his obstruction, and gets his nutrition via feeding tube. PMH: Prior CVA, HTN , HLD, thyroids cancer s/p thyroidectomy, gout PSH: back surgery, bilateral should repair Family history: No family history of lymphoma noted Social history: Quit smoking tobacco in his 40s, no drug or alcohol dependence Medical History Past Medical History: Diagnosis Date Apnea Sleep [...] Apnea Stroke (HCC) Transient Ischemic Attack 2002 OBJECTIVE PHYSICAL EXAM General: Alert and Orientated, no acute distress but seems to be more weak today. ECOG PS about 2 Eyes: no conjunctival icterus, PERRL ENT: Moist mucous membranes, no oral lesions or mucositis Lymph: No evidence of peripheral adenopathy in the cervical, supraclavicular, axillary, or inguinalregions Lungs: Clear to auscultation bilaterally, no wheezes, rales or rhonchi Cardiac: Regular rate and rhythm, no murmur or rubs Abdomen: Soft, nontender, nondistended. No hepatosplenomegaly Extremities: He has a right foot drop and wears an AFO brace-this predated chemotherapy and was dueto a previous back surgery. Skin: nonjaundiced, significant erythema and edema of his right second toe. 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 NG tube was placed and duodenal mass biopsy via EGD was suspicious for B cell lymphoma but with crushed artifact. -He saw us at clinic on 05/09/2023 and decided to obtain PET CT to guide tissue biopsy in order to establish diagnosis . PET CT showed showed a primary duodenal mass but with uptake in several lymph nodes , some are not contiguous with duodenum thus making his him at stage IV. -He ended up being hospitalized between 05/11-05/23 , mesenteric LN biopsy confirmed the diagnosis of DLBCL-NOS. He received cycle 1 Polar-R-CHP during hospitalization including 4 total doses of IV methylprednisolone (05/16- 05/20/2023). Then he was started on Rituximab on 05/18. The remainder of chemotherapy was started (Preston--CHP) was given on 05/21/2023.. On 05/20, his symptoms of nausea, vomiting had improved to the point that oral diet was trialed and successful. On 05/21, NJ tube was removed. -So far he received 5 cycles of Preston-R-CHP. interim PET scan prior to cycle 3 showed excellent response but there was still a concern of residual focal uptake in the 3rd portion of the duodenal that if this was residual lymphoma will be a Deauville score of 4. Thus we repeated a PET CT scan prior to cycle 5 whish showed complete remission Deauville 3. . Plan: - Discharged from the hospital yesterday, on a feeding tube (see below). We will plan to administercycle 6 Preston-R-CHP next week with provider follow up the day of. Today we discussed the risks versus the benefit of the final cycle. He is understandably concerned that he is considerably weaker after having started treatment and wants to have his strength for the surgery consultation in November. He does think he tolerated the dose reduced cycle well. We could consider further dose reduction, or even elimination of chemo and doing Preston-R alone. We will have him follow up with Dr. Castro next week to decide. Will schedule for chemotherapy appointment just in case - Of note, last cycle included a dose reduction of cyclophosphamide and doxorubicin by 20 % each for tolerability as his performance status has declined after chemotherapy and is becoming more weak despite his tumor responding well. He has received Neulasta the day after treatment. - We will obtain another PET CT after finishing 6 cycles of treatment. #Duodenal obstruction - He was hospitalized on 09/14 - 10/02 due to abdominal pain, nausea and vomiting. CT scan showed aduodenal obstruction at the site of prior lymphoma involvement. - EGD with biopsy was negative for lymphoma involvement, therefore obstruction is likely a treatment sequela. - PEJ tube placement on 09/28 for nutrition optimization prior to surgery. Undergoing tube feeding at home - Ultimately he will need surgical intervention for this stricture. Surgery consultation in November with PEG-J in interim. Will need to go through acute rehab and nutritional optimization prior to surgery #History of Rt foot drop wears an AFO brace, this predated chemotherapy and was due to a previous back surgery. R GENERATION TURBINE ROOM OPERATOR documented in this encounter Plan of Treatment Upcoming Encounters Date Type Department Care Team (Latest Contact Info) Description 10/06/2023 9:04 AM POWER GENERATION TURBINE ROOM OPERATOR - 10/06/2023 11:24 AM POWER GENERATION TURBINE ROOM OPERATOR Surgery [facility] OR [address] [place] [phone] Cameron Saenz M.D. [address] [place] [phone] ABDOMINAL EXPLORATION, REMOVAL ABTHERA, POSSBLE BOWEL RESECTION, PROCEED INDICATED 10/11/2023 7:00 AM POWER GENERATION TURBINE ROOM OPERATOR Appointment Department of Laboratory Medicine and Pathology, [facility], in [place], [place] [address] [place] [phone] Arti Epstein M.B.B.S. [address] [place] [phone] 10/11/2023 9:00 AM POWER GENERATION TURBINE ROOM OPERATOR Office Visit Division of Hematology in [place], [place] [address] [place] [phone] Arti Epstein M.B.B.S. [address] [place] [phone] 10/11/2023 10:00 AM POWER GENERATION TURBINE ROOM OPERATOR Infusion Department of Oncology in [place], [place] [address] [place] [phone] Bev Gifford APRN, C.N.P., M.S.N. [address] [place] [phone] 11/19/2023 10:00 AM CDT Office Visit Division of Endocrinology in [place], [place] [address] [place] [phone] West Mendoza APRN, C.N.P., M.S. [address] [place] [phone] 11/19/2023 2:30 PM CDT Comprehensive Visit Division of Hepatobiliary and Pancreas Surgery in [place], [place] [address] [place] [phone] Wesley Hamilton M.D. [address] [place] [phone] Scheduled Orders Name Type Priority Associated Diagnoses Orde r Schedule CBC with Differential, Blood Lab Routine Lymphoma Non Hodgkins (HCC) Expected: 10/10/2023 (Approximate), Expires: 01/01/2025 Comprehensive Metabolic Panel Lab Routine Lymphoma Non Hodgkins (HCC) Expected: 10/10/2023 (Approximate), Expires: 01/01/2025 LD (Lactate Dehydrogenase) Lab Routine Lymphoma Non Hodgkins (HCC) Expected: 10/10/2023 (Approximate), Expires: 01/01/2025 Magnesium Lab Routine Lymphoma Non Hodgkins (HCC) Cork Tile Floor Layer Current Drug Therapy, Chemotherapy Expected: 10/11/2023, Expires: 01/01/2025 Scheduled Procedures Name Priority Associated Diagnoses Date/Ti me LAPAROTOMY - ABDOMINAL WASHOUT Ischemia Intestinal With Stricture (HCC) 10/06/2023 9:04 AM POWER GENERATION TURBINE ROOM OPERATOR Scheduled Referrals Name Type Priority Associated Diagnoses Order Schedule Hematology office visit (clinic) [place]; Lymphoma; General Outpatient Referral Routine Expected: 10/10/2023 (Approximate), Expires: 01/01/2025 documented as of this encounter Visit Diagnoses Diagnosis Lymphoma Non Hodgkins (HCC)- Primary Obstruction Intestinal (HCC) Gastrojejunostomy Percutaneous Status Post Cork Tile Floor Layer Current Drug Therapy, Chemotherapy Ischemia Intestinal With Stricture (HCC) documented in this encounter Additional Health Concerns Infection Onset Date Last Indicated Resolved Time Protective Environment 05/17/2023 05/17/2023 documented as of this encounter Care Teams Chief Financial Officer Relationship Specialty Start Date End Date Elsewhere, Pcp PCP - General Internal Medicine 09/14/23 documented as of this encounter
--- OUTSIDE RECORDS SUMMARY | 2023-10-05 12:52 | XMS_ITS | Encounter Summary ---
Author Name Unknown Organization [facility] Address [address] [place] [address] Care Team Providers Care Explosive Specialist Name Role Phone Elsewhere, Pcp Primary Care Provider Unavailabl e Encounter Details Date Type Department Care Team (Latest Contact Info) Description 10/03/2023 10:30 AM MANAGER REVIEW Clinical Support Division of Endocrinology in [place], [place] [address] [place] [phone] Tee Reynolds M.D. [address] [place] [phone] Valerie Krishnan, R.N. Dietary Counseling And Surveillance For Enteral Nutrition Social History Tobacco Use Types Packs/Day Years Used Date Smoking Tobacco: Former Cigarettes 1 22 Q uit: 02/07/1989 Passive Smoke Exposure: Never Smokeless Tobacco: Former Snuff, Chew Quit: 04/18/2023 Alcohol Use Standard Drinks/Week Comments Not Currently 3 (1 standard drink = 0.6 oz pur e alcohol) [facility] Utilities Answer Date Recorded In the past 12 months has e [employer], gas, oil, or water company threatened to [...] often do you attend chur ch or adventism services? Never 01/10/2023 Do you belong to any clubs o r organizations such as methodist groups, unions, fraternal or athletic groups, or [...] Answer Date Recorded PHQ-2 Score 0 04/25/2020 [facility] [place] of Occupat ional Health - Occupational Stress [...] your living situation today? I have a [facility] place to live 09/15/2023 Education Answer [...] PM CDT documented as of this encounter Progress Notes * Valerie Krishnan, R.N. - 10/03/2023 10:30 AM CST SUBJECTIVE REASON FOR VISIT Mr. Lau was seen in the Home Enteral Nutrition clinic today for a HEN consult. OBJECTIVE The indication for tube placement was: recurrent duodenal obstruction with abdominal pain, nausea, and vomiting . Tube was placed using: General anesthesia. Were there complications at time of placement? No. ASSESSMENT Tube type: PEG with Jejunal extension Tube size: 20 danish PEG with 10 fr. J-ext Tube brand: [employer] Tube reference number: [id number] (10 fr. J extension) Connector type: Small Bore (Enfit) Date placed: 09/27/2023 Skin disk level: 4.5 cm, moved to 5.25 cm Internal anchor device: Bumper Site condition: mild erythema under skin disk, small amount of dried serosanguinous drainage Dressing status: None Is an infection assessment needed? No Condition of tube: Tube clear/Normal appearance Securement device used: Adhesive Movement of tube: No movement PLAN Is a return visit needed? Annual or sooner as needed Person educated: Patient and Family Teach back done by Rhona: Tube site care Supplies given: None GER REVIEW documented in this encounter Plan of Treatment Upcoming Encounters Date Type Department Care Team (Latest Contact Info) Description 10/06/2023 9:04 AM MANAGER REVIEW - 10/06/2023 11:24 AM MANAGER REVIEW Surgery [facility] MAIN OR [address] [place] [phone] Cameron Saenz M.D. [address] [place] [phone] ABDOMINAL EXPLORATION, REMOVAL ABTHERA, POSSBLE BOWEL RESECTION, PROCEED INDICATED 10/11/2023 7:00 AM MANAGER REVIEW Appointment Department of Laboratory Medicine and Pathology, [facility] in [place], [place] [address] [place] [phone] Arti Epstein M.B.B.S. [address] [place] [phone] 10/11/2023 9:00 AM MANAGER REVIEW Office Visit Division of Hematology in [place], [place] [address] [place] [phone] Arti Epstein M.B.B.S. [address] [place] [phone] 10/11/2023 10:00 AM MANAGER REVIEW Infusion Department of Oncology in [place], [place] [address] [place] [phone] Bev Gifford APRN, C.N.P., M.S.N. [address] [place] [phone] 11/19/2023 10:00 AM CDT Office Visit Division of Endocrinology in [place], [place] [address] [place] [phone] West Mendoza APRN, C.N.P., M.S. [address] [place] [phone] 11/19/2023 2:30 PM CDT Comprehensive Visit Division of Hepatobiliary and Pancreas Surgery in [place], [place] [address] [place] [phone] Wesley Hamilton M.D. [address] [place] [phone] Scheduled Procedures Name Priority Associated Diagnoses Date/Ti me LAPAROTOMY - ABDOMINAL WASHOUT Ischemia Intestinal With Stricture (HCC) 10/06/2023 9:04 AM MANAGER REVIEW documented as of this encounter Visit Diagnoses Diagnosis Dietary Counseling And Surveillance For Enteral Nutrition Ischemia Intestinal With Stricture (HCC) documented in this encounter Additional Health Concerns Infection Onset Date Last Indicated Resolved Time Protective Environment 05/17/2023 05/17/2023 documented as of this encounter Care Teams Explosive Specialist Relationship Specialty Start Date End Date Elsewhere, Pcp PCP - General Internal Medicine 09/14/23 documented as of this encounter
--- OUTSIDE RECORDS SUMMARY | 2023-10-05 12:52 | XMS_ITS | Encounter Summary ---
Author Name Unknown Organization [facility] Address [address] [place] [address] Care Team Providers Care Lsw Name Role Phone Elsewhere, Pcp Primary Care Provider Unavailabl e Reason for Referral * Specialty Diagnoses / Procedures Referred By oDroteo t Referred To Contact [facility] [address] [place] [phone] [facility] Referral ID Status Reason Start Date Expiration Date Visits Re quested Visits Authorized COMMUNICATIONS NETWORK ENGINEER Encounter Details Date Type Department Care Team ([facility] st Contact Info) Description 10/03/2023 Orders Only Division of Endocrinology in [place], [place] [address] [place] [phone] Anupama Schwartz, R.N. [address] [place] [phone] Dietary Counseling And Surveillance For Enteral Nutrition (Primary Dx) Social History Tobacco Use Types Packs/Day Years Used Date Smoking Tobacco: Former Cigarettes 1 22 Q uit: 02/07/1989 Passive Smoke Exposure: Never Smokeless Tobacco: Former Snuff, Chew Quit: 04/18/2023 Alcohol Use Standard Drinks/Week Comments Not Currently 3 (1 standard drink = 0.6 oz pur e alcohol) [facility] Utilities Answer Date Recorded In the past [...] week 01/10/2023 How often do you attend [facility] or mandaeism services? Never 01/10/2023 Do you belong to any clubs o r organizations such as episcopalian groups, unions, fraternal or athletic groups, or [...] Answer Date Recorded PHQ-2 Score 0 04/25/2020 [facility] [place] of Occupat ional Health - Occupational Stress [...] your living situation today? I have a [facility] place to live 09/15/2023 Education Answer [...] PM CDT documented as of this encounter Plan of Treatment Upcoming Encounters Date Type Department Care Team (Latest Contact Info) Description 10/06/2023 9:04 AM TELECOMMUNICATIONS NETWORK ENGINEER - 10/06/2023 11:24 AM TELECOMMUNICATIONS NETWORK ENGINEER Surgery [facility] MAIN OR [address] [place] [phone] Cameron Saenz M.D. [address] [place] [phone] ABDOMINAL EXPLORATION, REMOVAL ABTHERA, POSSBLE BOWEL RESECTION, PROCEED INDICATED 10/11/2023 7:00 AM TELECOMMUNICATIONS NETWORK ENGINEER Appointment Department of Laboratory Medicine and Pathology, [facility] in [place], [place] [address] [place] [phone] Arti Epstein M.B.B.S. [address] [place] [phone] 10/11/2023 9:00 AM TELECOMMUNICATIONS NETWORK ENGINEER Office Visit Division of Hematology in [address] [phone] Arti Epstein M.B.B.S. [address] [place] [phone] 10/11/2023 10:00 AM TELECOMMUNICATIONS NETWORK ENGINEER Infusion Department of Oncology in [address] [phone] Bev Gifford APRN, C.N.P., M.S.N. [address] [place] [phone] 11/19/2023 10:00 AM CDT Office Visit Division of Endocrinology in [place], [place] [address] [place] [phone] West Mendoza APRN, C.N.P., M.S. [address] [place] [phone] 11/19/2023 2:30 PM CDT Comprehensive Visit Division of Hepatobiliary and Pancreas Surgery in [address] [phone] Wesley Hamilton M.D. [address] [place] [phone] Scheduled Procedures Name Priority Associated Diagnoses Date/Ti me LAPAROTOMY - ABDOMINAL WASHOUT Ischemia Intestinal With Stricture (HCC) 10/06/2023 9:04 AM TELECOMMUNICATIONS NETWORK ENGINEER Scheduled Referrals Name Type Priority Associated Diagnoses Orde r Schedule Nutrition - Post-feeding tube education visit (clinic) Outpatient Referral Routine Dietary Counseling And Surveillance For Enteral Nutrition Expected: 10/03/2023, Expires: 01/01/2025 documented as of this encounter Visit Diagnoses Diagnosis Dietary Counseling And Surveillance For Enteral Nutrition- Primary Ischemia Intestinal With Stricture (HCC) documented in this encounter Additional Health Concerns Infection Onset Date Last Indicated Resolved Time Protective Environment 05/17/2023 05/17/2023 documented as of this encounter Care Teams Lsw Relationship Specialty Start Date End Date Elsewhere, Pcp PCP - General Internal Medicine 09/14/23 documented as of this encounter
--- OUTSIDE RECORDS SUMMARY | 2023-10-05 12:52 | XMS_ITS | Encounter Summary ---
Author Name Unknown Organization [facility] Address [address] [place] [address] Care Team Providers Care Industrial Sales Manager Name Role Phone Elsewhere, Pcp Primary Care Provider Unavailabl e Reason for Visit * Reason Onset Date Comments est/hem/lymphoma/2/2 10/03/2023 Encounter Details Date Type Department Care Team (Latest Contact Info) Description 10/03/2023 Clinical Communication Division of Hematology in [place], [place] [address] [place] [phone] Hola Claudio M.D. [address] [place] [phone] est/hem/lymphoma/2/ 2 Social History Tobacco Use Types Packs/Day Years Used Date Smoking Tobacco: Former Cigarettes 1 22 Q uit: 02/07/1989 Passive Smoke Exposure: Never Smokeless Tobacco: Former Snuff, Chew Quit: 04/18/2023 Alcohol Use Standard Drinks/Week Comments Not Currently 3 (1 standard drink = 0.6 oz pur e alcohol) [facility] Utilities Answer Date Recorded In the [...] often do you attend chur ch or mandaeism services? Never 01/10/2023 Do you belong to any clubs o r organizations such as rastafarian groups, unions, fraternal or athletic groups, or [...] Answer Date Recorded PHQ-2 Score 0 04/25/2020 [facility] [place] of Occupat ional Health - Occupational Stress [...] your living situation today? I have a [facility] place to live 09/15/2023 Education [...] (Latest Contact Info) Description 10/06/2023 9:04 AM CONCRETE FINISHER APPRENTICE - 10/06/2023 11:24 AM CONCRETE FINISHER APPRENTICE Surgery [facility] MAIN OR [address] [place] [phone] Cameron Saenz M.D. [address] [place] [phone] ABDOMINAL EXPLORATION, REMOVAL ABTHERA, POSSBLE BOWEL RESECTION, PROCEED INDICATED 10/11/2023 7:00 AM CONCRETE FINISHER APPRENTICE Appointment Department of Laboratory Medicine and Pathology, [facility], in [place], [place] [address] [place] [phone] Arti Epstein M.B.B.S. [address] [place] [phone] 10/11/2023 9:00 AM CONCRETE FINISHER APPRENTICE Office Visit Division of Hematology in [place], [place] [address] [place] [phone] Arti Epstein M.B.B.S. [address] [place] [phone] 10/11/2023 10:00 AM CONCRETE FINISHER APPRENTICE Infusion Department of Oncology in [place], [place] [address] [place] [phone] Bev Gifford APRN, C.N.P., M.S.N. [address] [place] [phone] 11/19/2023 10:00 AM CDT Office Visit Division of Endocrinology in [place], [place] [address] [place] [phone] West Mendoza APRN C.N.P., M.S. [address] [place] [phone] 11/19/2023 2:30 PM CDT Comprehensive Visit Division of Hepatobiliary and Pancreas Surgery in [place], [place] [address] [place] [phone] Wesley Hamilton M.D. [address] [place] [phone] Scheduled Procedures Name Priority Associated Diagnoses Date/Ti me LAPAROTOMY - ABDOMINAL WASHOUT Ischemia Intestinal With Stricture (HCC) 10/06/2023 9:04 AM CONCRETE FINISHER APPRENTICE documented as of this encounter Visit Diagnoses Not on filedocumented in this encounter Additional Health Concerns Infection Onset Date Last Indicated Resolved Time Protective Environment 05/17/2023 05/17/2023 documented as of this encounter Care Teams Industrial Sales Manager Relationship Specialty Start Date End Date Elsewhere, Pcp PCP - General Internal Medicine 09/14/23 documented as of this encounter
--- OUTSIDE RECORDS SUMMARY | 2023-10-05 12:53 | XMS_ITS | Encounter Summary ---
Author Name Unknown Organization [facility] Address [address] [place] [phone] Care Team Providers Care Design Engineer Marine Equipment Name Role Phone Elsewhere, Pcp Primary Care Provider Unavailabl e Reason for Visit * Reason Comments HPN Management * Outpatient (Routine) - Closed Specialty Diagnoses / Procedures Referred By Doroteo duron Referred To Contact Endocrinology Diagnoses Lymphoma Non Hodgkins (HCC) Mass Duodenum Faustino Nuñez M.B.B.S. [address] [place] [phone] [facility] Referral ID Status Reason Start Date Expiration Date Visits Re quested Visits Authorized [id number] Closed 09/17/2023 09/16/2024 1 1 Encounter Details Date Type Department Care Team (Late st Contact Info) Description 10/03/2023 9:30 AM BEAUTY OPERATOR APPRENTICE Nurse Only Division of Endocrinology in [place], [place] [address] [place] [phone] Faustino Nuñez M.B.B.S. [address] [place] [phone] HPN Management Social History Tobacco Use Types Packs/Day Years Used Date Smoking Tobacco: Former Cigarettes 1 22 Q uit: 02/07/1989 Passive Smoke Exposure: Never Smokeless Tobacco: Former Snuff, Chew Quit: 04/18/2023 Tobacco Cessation:Counseling Given: Not Answered Alcohol Use Standard Drinks/Week Comments Not Currently 3 (1 standard drink = 0.6 oz pur e alcohol) [facility] Utilities Answer Date Recorded In the [...] often do you attend chur ch or presybeterian services? Never 01/10/2023 Do you belong to any clubs o r organizations such as adventist groups, unions, fraternal or athletic groups, or [...] Answer Date Recorded PHQ-2 Score 0 04/25/2020 [facility] of Occupat ional [facility] - Occupational Stress Questionnaire Answer Date Recorded [...] your living situation today? I have a [facility] place to live 09/15/2023 Education [...] Sign Reading Time Taken Comments Blood Pressure 89/50 10/03/2023 8:52 AM BEAUTY OPERATOR APPRENTICE Pulse 95 10/03/2023 8:52 AM BEAUTY OPERATOR APPRENTICE Temperature - - Respiratory Rate - - Oxygen Saturation - - Inhaled Oxygen Concentration - - Weight 72.2 kg (159 lb 2.8 oz) 10/03/2023 9:14 A M BEAUTY OPERATOR APPRENTICE Height 172 cm (5' 7.72) 10/03/2023 9:14 AM BEAUTY OPERATOR APPRENTICE Body Mass Index 24.4 10/03/2023 9:14 AM BEAUTY OPERATOR APPRENTICE documented in this encounter Plan of Treatment Upcoming Encounters Date Type Department Care Team (Latest Contact Info) Description 10/06/2023 9:04 AM BEAUTY OPERATOR APPRENTICE - 10/06/2023 11:24 AM BEAUTY OPERATOR APPRENTICE Surgery [facility] MAIN OR [address] [place] [phone] Cameron Saenz M.D. [address] [place] [phone] ABDOMINAL EXPLORATION, REMOVAL ABTHERA, POSSBLE BOWEL RESECTION, PROCEED INDICATED 10/11/2023 7:00 AM BEAUTY OPERATOR APPRENTICE Appointment Department of Laboratory Medicine and Pathology, [facility], in [address] [phone] Arti Epstein M.B.B.S. [address] [place] [phone] 10/11/2023 9:00 AM BEAUTY OPERATOR APPRENTICE Office Visit Division of Hematology in [address] [phone] Arti Epstein M.B.B.S. [address] [place] [phone] 10/11/2023 10:00 AM BEAUTY OPERATOR APPRENTICE Infusion Department of Oncology in [address] [phone] Bev Gifford APRN, C.N.P., M.S.N. [address] [place] [phone] 11/19/2023 10:00 AM CDT Office Visit Division of Endocrinology in [place], [place] [address] [place] [phone] West Mendoza APRN, C.N.P., M.S. [address] [place] [phone] 11/19/2023 2:30 PM CDT Comprehensive Visit Division of Hepatobiliary and Pancreas Surgery in [place], [place] [address] [place] [phone] Wesley Hamilton M.D. 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
--- OUTSIDE RECORDS SUMMARY | 2023-10-05 12:53 | XMS_ITS | Encounter Summary ---
Author Name Unknown Organization [facility] Address [address] [place] [id number] Care Team Providers Care Residential Care Facility Manager Name Role Phone Elsewhere, Pcp Primary Care Provider Unavailabl e Reason for Visit * Outpatient (Routine) - Closed Specialty Diagnoses / Procedures Referred By Doroteo t Referred To Contact Nutrition Diagnoses Lymphoma Non Hodgkins (HCC) Mass Duodenum Faustino Nuñez M.B.B.S. [address] [place] [phone] [facility] Referral ID Status Reason Start Date Expiration Date Visits Re quested Visits Authorized [id number] Closed 09/17/2023 09/16/2024 1 1 Encounter Details Date Type Department Care Team (Latest Contact Info) Description 10/03/2023 2:00 PM SENIOR MOBILE DEVELOPER Clinical Support Department of Nutrition and Diabetes Education in [place], [place] [address] [place] [phone] Faustino Nuñez M.B.B.S. [address] [place] [phone] Maricruz Meehan, LORNAN, LD [address] [place] [phone] Lymphoma Non Hodgkins (HCC); Mass Duodenum Social History Tobacco Use Types Packs/Day Years Used Date Smoking Tobacco: Former Cigarettes 1 22 Q uit: 02/07/1989 Passive Smoke Exposure: Never Smokeless Tobacco: Former Snuff, Chew Quit: 04/18/2023 Alcohol Use Standard Drinks/Week Comments Not Currently 3 (1 standard drink = 0.6 oz pur e alcohol) [facility] Utilities Answer Date Recorded In the [...] often do you attend chur ch or congregation services? Never 01/10/2023 Do you belong to any clubs o r organizations such as protestant groups, unions, fraternal or athletic groups, or [...] Answer Date Recorded PHQ-2 Score 0 04/25/2020 [facility] Occupat ional [facility] - Occupational Stress Questionnaire Answer [...] your living situation today? 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 He had a prior [place] in 04/30/23- 05/21/23 but removed as he was eating well. Now he has a PEG with jejunal extension for nutrition optimization prior to surgery (meeting with Dr. Hamilton 11/19/23). Recent hospitalization or ED visit: just dismissed yesterday The following portions of the patient's history were reviewed and updated as appropriate: allergies, current medications, family history, medical history, social history, surgical history, and problem list. Met with patient and caregiver. ASSESSMENT Medical Tests and Procedures/Biochemical Data EGD 09/17/23: EGD with biopsy was negative for lymphoma involvement, therefore obstruction is likely a treatment sequela. Pertinent Labs Sodium 134, elevated glucose, last A1c=6 (on metformin so want to make sure we don't overfeed) Nutrition Focused Physical Findings Bowels: looser stools but not urgent or watery Hydration: fair Nausea/vomiting: noted intemittent abdominal pain in hospital and feedings were held. Howver he feels he was pushing oral intake at that time and is now much better with just tube feeding. Stoma: no concerns Venting: no plan for venting at home Tube Information 20 Welsh PEG with a 10 Welsh jejunal extension, small-bore placed 09/27/2023 by GI Food/Nutrient Related History Oral: sips of water and meds orally. Was eating a mechanical soft diet (3 meals daily) in hospital and this was too much. Enteral: 5 Nutren 1.5 52ml/hr with 60ml water 4 times daily. Weight History Wt Readings from Last 10 Encounters: 10/03/23 71.1 kg in Inbody, fat mass is high and muscle mass is lower 10/02/23 71.4 kg 09/04/23 82.5 kg 08/26/23 80.1 kg 08/12/23 80.1 kg 08/07/23 83 kg 07/23/23 79.2 kg 07/22/23 78.9 kg 07/02/23 76.5 kg 06/10/23 80.3 kg 05/23/23 83.6 kg-[place] removed } Ht Readings from Last 1 Encounters: 09/27/23 175 cm ] BMI Readings from Last 1 Encounters: 10/02/23 23.31 kg/m?? ] Weight loss of 9kg (11%) in the last month. Patient is very weak and needed help transfering out ofwheel chair today. Lower body strength is very low (unable to do chair stand test) and hand stone cleaner isat 42% of mean Estimation of Nutritional Needs Calorie: 1750-2130kcal (25-30kcal/kg) Protein: 70 grams Fluid: 2130kcal Assessment Summary Patient is tolerating tube feeding well and will work on increasing rate to allow hours off pump. HE does need to take in more water (orally or via tube) to meet hydration needs. NUTRITION DIAGNOSIS Inadequate oral intake (NI-2.1) related to obstruction, no need tube as evidenced by 11% weight loss in 1 month and now has feeding tube. Nutrition Prescription/Recommendation Formula Type: Nutren 1.5 Administration Method: Continuous pump Infusion Schedule: 52ml/hr x 24 hours and slowly increase rate as tolerated Water Flushes: 60ml 4 times daily at least but needs 1140ml total fluid daily (orally or by tube) Additional Multivitamin: not needed At goal, this will provide a total of: 1875 calories/day, 85 g protein/day, and 1250 mL of fluid/day Water flushes will provide extra fluid. Oral Program oral intake for pleasure only and that tube feeds will be his main source of nutrition. He was on mechanical soft diet and can really have this for mental health reasons, not for nutrition INTERVENTION Education Reviewed oral diet, tube feeding goals and need for increase in exercise. Care Coordination Authorization on file to speak with DME/Infusion Company: yes DME/Infusion Company that will provide needed supplies for home: Alexander Indication for Ongoing Enteral Nutrition obstruction Anticipated duration of tube feedings is 6 months. This is the sole source of nutrition. Rationale for pump: jejunal tube MONITORING AND EVALUATION Nutrition parameter to monitor: Weight Desired Outcome: maintain weight, increase muscle mass and strength Patient Goal(s): 1. 5 Nutren 1.5 daily 2. Strength training at home Follow-up Plan Patient is followed in [facility]: will contact him in 2 weeks to check on weightand intake. Time spent with patient (minutes): 60 OR MOBILE DEVELOPER documented in this encounter Plan of Treatment Upcoming Encounters Date Type Department Care Team (Latest Contact Info) Description 10/06/2023 9:04 AM SENIOR MOBILE DEVELOPER - 10/06/2023 11:24 AM SENIOR MOBILE DEVELOPER Surgery [facility] OR [address] [place] [phone] Cameron Saenz M.D. [address] [place] [phone] ABDOMINAL EXPLORATION, REMOVAL ABTHERA, POSSBLE BOWEL RESECTION, PROCEED INDICATED 10/11/2023 7:00 AM SENIOR MOBILE DEVELOPER Appointment Department of Laboratory Medicine and Pathology, [facility], in [place], [place] [address] [place] [phone] Arti Epstein M.B.B.S. [address] [place] [phone] 10/11/2023 9:00 AM SENIOR MOBILE DEVELOPER Office Visit Division of Hematology in [place], [place] [address] [place] [phone] Arti Epstein M.B.B.S. [address] [place] [phone] 10/11/2023 10:00 AM SENIOR MOBILE DEVELOPER Infusion Department of Oncology in [place], [place] [address] [place] [phone] Bev Gifford APRN, C.N.P., M.S.N. [address] [place] [phone] 11/19/2023 10:00 AM CDT Office Visit Division of Endocrinology in [place], [place] [address] [place] [phone] West Mendoza APRN, C.N.P., M.S. [address] [place] [phone] 11/19/2023 2:30 PM CDT Comprehensive Visit Division of Hepatobiliary and Pancreas Surgery in [place], [place] [address] [place] [phone] Wesley Hamilton M.D. 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
--- OUTSIDE RECORDS SUMMARY | 2023-10-05 12:53 | XMS_ITS | Encounter Summary ---
Author Name Unknown Organization [facility] Address [address] [place] [id number] Care Team Providers Care Assistant Clinical Nurse Manager Name Role Phone Elsewhere, Pcp Primary Care Provider Unavailabl e Reason for Visit * Reason Comments Med Refill Encounter Details Date Type Department Care Team ([facility] st Contact Info) Description 10/02/2023 Refill Division of Hematology in [place], [place] [address] [place] [phone] Bety Castro M.D. [address] [place] [phone] Med Refill Social History Tobacco Use Types Packs/Day Years Used Date Smoking Tobacco: Former Cigarettes 1 22 Q uit: 02/07/1989 Passive Smoke Exposure: Never Smokeless Tobacco: Former Snuff, Chew Quit: 04/18/2023 Alcohol Use Standard Drinks/Week Comments Not Currently 3 (1 standard drink = 0.6 oz pur e alcohol) [facility] Utilities Answer Date Recorded In the past [...] often do you attend chur ch or faith services? Never 01/10/2023 Do you belong to [...] Recorded PHQ-2 Score 0 04/25/2020 [facility] of Occupat ional Health - Occupational Stress [...] your living situation today? I have a [facility] place to live 09/15/2023 Education [...] (Latest Contact Info) Description 10/06/2023 9:04 AM RIP SAWYER - 10/06/2023 11:24 AM RIP SAWYER Surgery [facility] OR [address] [place] [phone] Cameron Saenz M.D. [address] [place] [phone] ABDOMINAL EXPLORATION, REMOVAL ABTHERA, POSSBLE BOWEL RESECTION, PROCEED INDICATED 10/11/2023 7:00 AM RIP SAWYER Appointment Department of Laboratory Medicine and Pathology, [facility], in [place], [place] [address] [place] [phone] Arti Epstein M.B.B.S. [address] [place] [phone] 10/11/2023 9:00 AM RIP SAWYER Office Visit Division of Hematology in [place], [place] [address] [place] [phone] Arti Epstein M.B.B.S. [address] [place] [phone] 10/11/2023 10:00 AM RIP SAWYER Infusion Department of Oncology in [place], [place] [address] [place] [phone] Bev Gifford APRN, C.N.P., M.S.N. [address] [place] [phone] 11/19/2023 10:00 AM CDT Office Visit Division of Endocrinology in [address] [phone] West Mendoza APRN, C.N.P., M.S. [address] [place] [phone] 11/19/2023 2:30 PM CDT Comprehensive Visit Division of Hepatobiliary and Pancreas Surgery in [address] [phone] Wesley Hamilton M.D. [address] [place] [phone] Scheduled Procedures Name Priority Associated Diagnoses Date/Ti me LAPAROTOMY - ABDOMINAL WASHOUT Ischemia Intestinal With Stricture (HCC) 10/06/2023 9:04 AM RIP SAWYER documented as of this encounter Visit Diagnoses Not on filedocumented in this encounter Additional Health Concerns Infection Onset Date Last Indicated Resolved Time Protective Environment 05/17/2023 05/17/2023 documented as of this encounter Care Teams Assistant Clinical Nurse Manager Relationship Specialty Start Date End Date Elsewhere, Pcp PCP - General Internal Medicine 09/14/23 documented as of this encounter
--- OUTSIDE RECORDS SUMMARY | 2023-10-05 12:54 | XMS_ITS | Encounter Summary ---
Author Name Unknown Organization [facility] Address [address] [place] [address] Care Team Providers Care Stud Master/Mistress Name Role Phone Elsewhere, Pcp Primary Care Provider Unavailabl e Reason for Referral * Physical Therapy (Routine) - Authorized Specialty Diagnoses / Procedures Referred By Doroteo duron Referred To Contact Diagnoses Decline Functional Status History Of Falling Foot Drop Right Radiculopathy Lumbar Fifth Right Alessandro Gonzáles M.D. [address] [place] [address] Referral ID Status Reason Start Date Expiration Date V isits Requested Visits Authorized [id number] Authorized Other 10/02/2023 04/02/2025 99 99 GER VIDEO * Outpatient (Routine) - Authorized Specialty Diagnoses / Procedures Referred By Doroteo t Referred To Contact General Surgery Diagnoses Obstruction Intestinal (HCC) Dionte Leggett M.B.B.S. [address] [place] [address] [facility] Referral ID Status Reason Start Date Expiration Date V isits Requested Visits Authorized [id number] Authorized 09/20/2023 09/19/2024 1 1 Scheduling Instructions To see Dr. Hamilton to consider surgical bypass GER VIDEO * Outpatient (Routine) - Closed Specialty Diagnoses / Procedures Referred By Doroteo t Referred To Contact Nutrition Diagnoses Lymphoma Non Hodgkins (HCC) Mass Duodenum Faustino Nuñez M.B.B.S. [address] [place] [phone] [facility] Referral ID Status Reason Start Date Expiration Date Visits Re quested Visits Authorized [id number] Closed 09/17/2023 09/16/2024 1 1 Scheduling Instructions Post - Placement GER VIDEO * Outpatient (Routine) - Closed Specialty Diagnoses / Procedures Referred By Doroteo duron Referred To Contact Endocrinology Diagnoses Lymphoma Non Hodgkins (HCC) Mass Duodenum Faustino Nuñez M.B.B.S. [address] [place] [phone] [facility] Referral ID Status Reason Start Date Expiration Date Visits Re quested Visits Authorized [id number] Closed 09/17/2023 09/16/2024 1 1 GER VIDEO Reason for Visit * Reason Comments Vomiting Encounter Details Date Type Department Care Team (Late st Contact Info) Description 09/14/2023 7:08 PM MANAGER VIDEO - 10/02/2023 5:10 PM MANAGER VIDEO Hospital Encounter [facility], [facility], [facility], Tenth Floor [address] [place] [phone] Aris Mina P.A.-C. [address] [place] [phone] Truman Baum M.D. [address] [place] [phone] Stacey Rai M.B.B.S. [address] [place] [phone] Faustino Nuñez M.B.B.S. [address] [place] [phone] Taina Mclaughlin M.B.B.S. [address] [place] [phone] Xavi Arita M.D. [address] [place] [phone] Obstruction Intestinal (HCC) (Primary Dx); Neutropenia (HCC); Leukopenia; Lymphoma Non Hodgkins (HCC); Mass Duodenum; Effusion Knee Right; Decline Functional Status [R53.81]; Gastrojejunostomy Percutaneous Status Post ; History Of Falling; Foot Drop Right; Radiculopathy Lumbar Fifth Right Discharge Disposition: Home or Self Care Social History Tobacco Use Types Packs/Day Years Used Date Smoking Tobacco: Former Cigarettes 1 22 Q uit: 02/07/1989 Passive Smoke Exposure: Never Smokeless Tobacco: Former Snuff, Chew Quit: 04/18/2023 Alcohol Use Standard Drinks/Week Comments Not Currently 3 (1 standard drink = 0.6 oz pur e alcohol) [facility] Utilities Answer Date Recorded In the past 12 months has [facility] [employer], gas, oil, or water [employer] threatened to shut off services in your [...] often do you attend chur ch or anabaptism services? Never 01/10/2023 Do you belong to any clubs o r organizations such as confucianist groups, unions, fraternal or athletic groups, or [...] Answer Date Recorded PHQ-2 Score 0 04/25/2020 [facility] [place] [facility] Occupat ional [facility] - [...] your living situation today? I have a [facility] place to live 09/15/2023 Education Answer [...] Sign Reading Time Taken Comments Blood Pressure 124/55 10/02/2023 5:00 PM MANAGER VIDEO Pulse 100 10/02/2023 5:00 PM MANAGER VIDEO Temperature 36.7 ??C (98.1 ??F) 10/02/2023 5:00 PM CS T Respiratory Rate 16 10/02/2023 5:00 PM MANAGER VIDEO Oxygen Saturation 99% 10/02/2023 5:00 PM MANAGER VIDEO Inhaled Oxygen Concentration - - Weight 71.4 kg (157 lb 6.5 oz) 10/02/2023 3:35 A M MANAGER VIDEO Height 175 cm (5' 8.9) 09/27/2023 2:00 PM MANAGER VIDEO Body Mass Index 23.31 09/27/2023 2:00 PM MANAGER VIDEO documented in this encounter Discharge Summaries * Alessandro Gonzáles M.D. - 10/02/2023 11:20 AM CST DISCHARGE SUMMARY BRIEF OVERVIEW Hospital: [facility] Discharge Provider: Xavi Arita M.D. Primary Team: RST HEMATOLOGY 3 Primary Care Providers: Elsewhere, Pcp (General) No address on file Primary Care Provider Phone Number: None Primary Care Provider Fax Number: None Admission Date: 09/14/2023 Discharge Date: 10/02/23 PRINCIPAL DIAGNOSIS Obstruction Intestinal (HCC) SECONDARY DIAGNOSES Principal Problem: Obstruction Intestinal (HCC) Resolved Problems: * No resolved hospital problems. * DISCHARGE DISPOSITION Home or Self Care [1] ACTIVE ISSUES REQUIRING FOLLOW UP New Medications: -start taking acyclovir, this is an antiviral for prophylaxis. One dose 400 mg tab 2 times daily -continue to take tamsulosin 0.4 mg daily, to help with urinary flow -you can use bentyl, this is antispasmodic that you can use for abdominal pain 10 mg up to 4 times a day as needed Stop/hold medications: -hold Jardiance, Liraglutide, Taltz until you meet with your primary care provider -restart taking metformin -we increased your dose of levothyroxine to 224mcg daily before breakfast Other Recommendations: -Continue at home exercises to improve your functional status, this is vital to improving your health -External PT referral given Follow-up: - Please attend follow up appointments as listed in after visit summary. Specialty follow up includes: Hematology 10/03/23 Nutrition 10/03/23 Surgery 11/28/23 If you have any questions related to issues addressed during your hospitalization prior to your follow-up appointments, contact the [facility] Affiliate Marketing Coordinator at [phone] and ask to speak with the Hematology 3 Service NUTRITION Summary provided by: Liliana Mittal RDN, PORSHA Date completed: 09/27/2023 Nutrition Discharge Plan: Patient was assessed as severely malnourished during this hospitalization based upon the ASPEN criteria. Outpatient follow-up coordinated by LAURA: tube feeding and outpatient follow up with Home Enteral Nutrition (HEN) Oral diet: As tolerated. Feeding tube information: Gastric 20 Bel[place]an Avanos Bumper PEG with 10 Fr Jejunal Extension *Do Not Rotate* Who placed the tube: [facility] Date of tube placement: September 27, 2023 To maintain enteral access the patient's feeding tube should be replaced at regular intervals. Recommended replacement for feeding tube with internal bumper is every 8-12 months. Tube feeding program: Formula: Nutren 1.5 Feeding method: Continuous pump controlled Feeding schedule/goal: Continuous - goal rate 52 mL/hour over 24 hours. Cycle toward nighttime feeding as tolerated: 63 mL/hr for 20 hrs/day 78 mL/hr for 16 hrs/day 90 mL/hr for 14 hrs/day 104 mL/hr for 12 hrs/day Any of above provide goal volume. Stay at rate best tolerated. Water flushes: 60 mL 4 times per day & as needed to maintain hydration Vitamin/mineral supplementation: Formula at goal volume provides 100% or greater of Recommended Daily Intake for vitamins and minerals. Additional supplementation not needed. This program provides 1875 calories and 85 grams protein per day. Monitor your weight 1-2 time(s) per week. Anthropometrics: Weight: 70 kg Height: 175 cm BMI (Calculated): 22.9 kg/m?? Estimated Needs: Total Calorie Needs: 3182-2919 calories/day Method to Estimate Energy Needs: kcal/kg (25-30 kcal/kg) Weight Used for Equation Calculations: 70 kg Total Protein Needs: 70 - 105 grams/day Method to Estimate Protein Needs (g/kg): 1 - 1.5 gm/kg Weight Used to Calculate Protein Needs (Kg): 70 kg -Your Durable Medical Equipment (DME)/Infusion company for tube feeding supplies is: [place]: ; [employer] . Please contact this DME company with questions about delivery or re-ordering your supplies and formula. -To schedule an appointment with Home Enteral Nutrition team, call . -For questions about the recommended tube feeding program and care of your tube, contact Home Enteral Nutrition clinic department. Saturday - Saturday, 8 a.m. - 4 p.m. OUTPATIENT FOLLOW UP Scheduled Appointments 10/02/2023 1:45 PM RST INTAKE VISIT POD C 03 Admitting/Central Scheduling 10/03/2023 9:30 AM END HEN ILIR DEPUTY K 9 [place] Endocrinology 10/03/2023 11:00 AM END HEN PROVIDER [place] Endocrinology 10/03/2023 12:10 PM LAB BLOOD GARY 05 W Laboratory Medicine 10/03/2023 2:00 PM Maricruz Meehan, LORNAN, LD; NTR ALLEN DIETITIAN [place] Nutrition 10/03/2023 3:30 PM [facility] [place] Hematology 11/19/2023 2:30 PM Wesley Hamilton M.D. Hepatobiliary and Pancreas Surgery For appointment details refer to your Patient Appointment Guide. TEST RESULTS PENDING AT DISCHARGE Pending Labs Order Current Status Bacteria Culture, Aerobe / Anaerobe + Susc Preliminary result DETAILS OF HOSPITAL STAY REASON FOR ADMISSION Leukopenia Neutropenia (HCC) Obstruction Intestinal (HCC) HOSPITAL COURSE Mr. Hola Lau is a 72 y.o. 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 He initiated treatment with methylprednisolone and rituximab in 2022 and thenstarted treatment with Preston- CHP 05/21/2023. Interim PET CT scan showed Deauville 2. His last few cycles of Preston-R-CHP he has required dose reduction of cytoxan and doxorubicin due to decreasing performance status. His 6th cycle was held due to anemia at the end of August 2023, thus his last treatment was 08/12/2023. Hospital Course He presented to the hospital for abdominal pain and CT showed evidence of recurrent duodenal obstruction in the 3rd segment of duodenum at the area of known lymphomatous involvement with no perforation. Symptoms were significantly relieved after NG tube placement. He underwent upper endoscopy on 09/17 with biopsy and NJ tube placement with G port for decompression. Biopsy of the duodenum revealedno evidence of dysplasia or neoplasm. General surgery was consulted for duodenal stricture treatment, but they felt he was not a surgical candidate given severe malnutrition and scheduled for outpatient appointment. Nutrition saw the patient and recommended a PEG tube with a J extension which was placed on 09/27/2023 after the patient agreed. An oral diet supplement failed after the patient developed abdominal pain. After risks benefits with the patient discussed, decided to pursue with minimaloral eating for pleasure only, and to move forward with primary enteral feeds through the PEG/J-tube. Patient tolerated this well and him and his friend were educated by home internal nutrition. His hospital course was complicated by a rapid response due to concern for stroke in the setting ofacute on chronic worsening of right-sided upper and lower extremity weakness on 09/19/2023. Stat head CT/CTA was negative for acute pathology. Neurology was consulted and recommended a brain MRI, which showed only the known chronic infarct. Rheumatology was consulted for right knee effusion and after aspiration was notable for crystals they performed a steroid injection. On 10/02/2022 the patient was discharged to his home. He was comfortable and in agreement with thisplan. He was arranged with close outpatient hematology, nutrition and surgery follow up. See today's note for physical exam. CONSULTS ORDERED DURING THIS ADMISSION IP CONSULT TO GENERAL SURGERY IP CONSULT TO CARE MANAGEMENT IP CONSULT TO DIETITIAN IP CONSULT TO DIETITIAN IP CONSULT TO HOME ENTERAL SERVICE IP CONSULT TO DIETITIAN IP CONSULT TO NEUROLOGY IP CONSULT TO RHEUMATOLOGY IP CONSULT TO DIETITIAN IP CONSULT TO CARE MANAGEMENT IP CONSULT TO SPIRAL MACHINE OPERATOR WOUND CARE IP CONSULT TO GENERAL SURGERY IP CONSULT TO NUTRITION SUPPORT CONDITION AT DISCHARGE stable Discharge instructions were provided to the patient and caregiver(s). GER VIDEO documented in this encounter Discharge Instructions * Discharge Instructions* Sol Vargas V. - 09/16/2023 7:03 AM MANAGER VIDEO You were discharged from the [facility] HEMATOLOGY 3 Service. Please identify this service name if you call with questions after hospitalization. GER VIDEO * Discharge Instr - Diet* Liliana Mittal RDN, LD - 09/16/2023 1:18 PM MANAGER VIDEO NUTRITION Summary provided by: Liliana Mittal RDN, PORSHA Date completed: 09/27/2023 Nutrition Discharge Plan: Patient was assessed as severely malnourished during this hospitalization based upon the ASPEN criteria. Outpatient follow-up coordinated by LAURA: tube feeding and outpatient follow up with Home Enteral Nutrition (HEN) Oral diet: As tolerated. Feeding tube information: Gastric 20 [place] Avanos Bumper PEG with 10 Fr Jejunal Extension *Do Not Rotate* Who placed the tube: [facility] Date of tube placement: September 27, 2023 To maintain enteral access the patient's feeding tube should be replaced at regular intervals. Recommended replacement for feeding tube with internal bumper is every 8-12 months. Tube feeding program: Formula: Nutren 1.5 Feeding method: Continuous pump controlled Feeding schedule/goal: Continuous - goal rate 52 mL/hour over 24 hours. Cycle toward nighttime feeding as tolerated: 63 mL/hr for 20 hrs/day 78 mL/hr for 16 hrs/day 90 mL/hr for 14 hrs/day 104 mL/hr for 12 hrs/day Any of above provide goal volume. Stay at rate best tolerated. Water flushes: 60 mL 4 times per day & as needed to maintain hydration Vitamin/mineral supplementation: Formula at goal volume provides 100% or greater of Recommended Daily Intake for vitamins and minerals. Additional supplementation not needed. This program provides 1875 calories and 85 grams protein per day. Monitor your weight 1-2 time(s) per week. Anthropometrics: Weight: 70 kg Height: 175 cm BMI (Calculated): 22.9 kg/m?? Estimated Needs: Total Calorie Needs: 1873-7714 calories/day Method to Estimate Energy Needs: kcal/kg (25-30 kcal/kg) Weight Used for Equation Calculations: 70 kg Total Protein Needs: 70 - 105 grams/day Method to Estimate Protein Needs (g/kg): 1 - 1.5 gm/kg Weight Used to Calculate Protein Needs (Kg): 70 kg -Your Durable Medical Equipment (DME)/Infusion company for tube feeding supplies is: [place]: ; [employer] . Please contact this DME company with questions about delivery or re-ordering your supplies and formula. -To schedule an appointment with Home Enteral Nutrition team, call . -For questions about the recommended tube feeding program and care of your tube, contact Home Enteral Nutrition clinic department. Saturday - Saturday, 8 a.m. - 4 p.m. GER VIDEO documented in this encounter Medications at Time of Discharge Medication Sig Dispensed Refills Start Date End Date acetaminophen (TYLENOL) 500 mg tablet Take 1 tablet (500 mg total) by mouth every 6 (six) hours as needed for mild pain or score 1-3 of 10 or moderate pain or score 4-6 of 10. 100 tablet 0 08/07/2023 acyclovir (ZOVIRAX) 400 mg tabletIndications:Prop hylaxis, medical Take 1 tablet (400 mg total) by mouth 2 (two) times a day Indications: Prophylaxis, medical. 60 tablet 0 10/02/2023 11/01/2023 allopurinoL (ZYLOPRIM) 300 mg tablet Take 1 tablet (300 mg total) by mouth daily. 30 tablet 0 05/24/2023 amitriptyline (ELAVIL) 25 mg tablet Administer 0.5 tablets (12.5 mg total) via small bowel tube at bedtime as needed (neuropathy). 15 tablet 0 05/07/2023 aspirin 81 mg chewable tablet Chew 1 tablet (81 mg total) daily. 36 tablet 0 08/07/2023 dicyclomine (BENTYL) 10 mg capsule Take 1 capsule (10 mg total) by mouth 4 (four) times a day as needed (abdominal pain) for up to 20 doses. 20 capsule 0 10/02/2023 DME CPAP DME Order 0 empagliflozin (Jardiance) 10 mg tablet Take 1 tablet (10 mg total) by mouth every morning before breakfast. Don't restart given tube feeds for primary diet, follow up with primary care 0 10/02/2023 10/01/2024 ixekizumab (TALTZ) 80 mg/mL syringe injection Inject 1 mL (80 mg total) under the skin every 28 (twenty-eight) days. One injection per month Does not use during chemotherapy, held for now until seeing hematology 0 10/02/2023 levothyroxine (SYNTHROID, LEVOTHROID) 112 mcg tablet Take 2 tablets (224 mcg total) by mouth 4 (four) times a week AND 1 tablet (112 mcg total) 3 (three) times a week. Take 1 tablet, 112 mcg Saturday/Saturday/ day Take 2 tablets, 224 mcg, Saturday/Saturday/Sat/Saturday. 44 tablet 0 10/02/2023 11/01/2023 liraglutide, weight loss, (SAXENDA) 3 mg/0.5 mL (18 mg/3 mL) injection Inject 1.2 mg under the skin daily. HOLD Not taking during chemo. Follow up with heme and primary care provider 0 10/02/2023 11/01/2023 magnesium oxide (MAG-OX) 400 mg (241.3 mg magnesium) tablet TAKE 1 TABLET(400 MG) BY MOUTH EVERY MORNING BEFORE BREAKFAST 30 tablet 1 10/03/2023 ondansetron ODT (ZOFRAN-ODT) 8 mg disintegrating tablet Dissolve 1 tablet (8 mg total) in the mouth every 8 (eight) hours as needed for nausea or vomiting. 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 100 each 3 07/18/2022 simvastatin (ZOCOR) 20 mg tablet Take 1 tablet (20 mg total) by mouth at bedtime. 30 tablet 0 08/07/2023 tamsulosin (FLOMAX) 0.4 mg 24 hr capsule Take 1 capsule (0.4 mg total) by mouth daily. Continue per primary 30 capsule 0 10/02/2023 11/01/2023 magnesium oxide (MagOx) 400 mg (241.3 mg magnesium) tablet Take 1 tablet (400 mg total) by mouth every morning before breakfast. 30 tablet 1 08/12/2023 10/03/2023 predniSONE (DELTASONE) 50 mg tabletIndications:Lymp marimar Non Hodgkins (HCC) Take 2 tablets (100 mg total) by mouth daily. Days 1 through 5 of each cycle. (Prior to chemotherapy if a chemo day) 10 tablet 4 08/12/2023 10/03/2023 documented as of this encounter Progress Notes * Stanley Alfaro P.T., D.P.T. - 10/02/2023 2:21 PM CST 10/02/23 1421 Plan Requires Inpatient Follow-Up No Plan Discontinue PT PT Plan Comments Patient discharged to home, goals partially met, and no equipment issued. GER VIDEO * Xavi Arita M.D. - 10/02/2023 11:33 AM CST This is an attestation note. I saw and evaluated Mr. Hola Lau, participating in the duncan portions of the inpatient visit service. I discussed the case with the team during rounds. Please refer to Dr. Gonzáles note from today for full details. In summary, Mr. Lau the 72-year-old male with DLBCL status post polaR-CHP x5 (last cycle 08/12/23) in complete remission. He was hospitalized on 09/14 due to abdominal pain, nausea and vomiting. CT scan showed a duodenal obstruction at the site of prior lymphoma involvement. EGD with biopsy was negative for lymphoma involvement, therefore obstruction is likely a treatment sequela. PEJ tube placement on 09/28 for nutrition optimization prior to surgery. No acute events over the last 24 hours. He is feeling overall well this morning, with no specific complaints. Plan to discharge today with home nutritional support. Has a follow-up with lymphoma clinic tomorrow and with the general surgery on 11/18. GER VIDEO * Michelle Guzmán, O.T., [facility] - 10/02/2023 11:12 AM CST 10/02/23 1112 OT Assessment Progress Progressing toward goals Plan OT Amount 1 visit per day OT Frequency 3 times per week OT Inpatient Duration Until goals are met or hospital discharge Requires Inpatient OT Follow-Up No OT - Next Inpatient Appointment 10/03/23 Plan Continue with current plan Occupational Therapy Attestation Statement Patient agrees with the plan of care and goals. Met with patient in his hospital room today. He reports tentative plan for him to discharge home today. Per chart review, patient has been making excellent functional progress and can manage many of his basic ADL tasks with little to no assist. He is also making good progress with his activity tolerance by engaging in continued activity as able. OT facilitated discussion regarding patient's concerns regarding OT and discharging, and he current denies any. He reports having all needed bathroom safety equipment in place and will have assist from family/significant other as needed upon discharge. He declines participation in active OT session at the time of OT visit today. OT would follow up with the patient tomorrow 10/03 as appropriate should her remain admitted inpatient. GER VIDEO * Alessandro Gonzáles M.D. - 10/02/2023 7:26 AM CST Images from the original note were not included. HEMATOLOGY 3 SERVICE No care master steam yacht to display SUBJECTIVE Interval events: No acute overnight events Feeling well and ready to go OBJECTIVE VITAL SIGNS Temperature: [36.3 ??C-36.9 ??C] 36.4 ??C Resp Rate: [14-18] 16 Blood Pressure: (103-121)/(59-65) 121/60 SpO2: [94 %-98 %] 97 % Weight: [71.4 kg] 71.4 kg BMI (Calculated): [23.3 kg/m??] 23.3 kg/m?? Pulse Rate: [80-113] 105 PHYSICAL EXAM General: No acute distress, no discomfort HEENT: NC/AT. No scleral icterus. Cardiac: RRR with soft systolic ejection murmur. Pulmonary: Regular work of breathing. Clear to anterior auscultation Abdomen: Soft, nondistended. no tenderness to palpation to the right of PEJ. PEJ in place, clean. Skin: No visible rashes Extremities: Warm and well perfused. No lower extremity edema. ASSESSMENT / PLAN Mr. Hola Lau is a 72 y.o. 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 He was due for the 6th cycle on 09/03, which was postponed due to cytopenia. At this point, there is no plan to receive the 6th cycle, rather to refer patient for surgical evaluation given his duodenal stricture. 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 Big Picture: Ultimately he will need surgical intervention for this stricture. Now s/p PEG-J extension. placement on 09/27 without complications. Nutrition team provided education and patient/friend feel confident in going home. # Duodenal obstruction 2/2 stricture s/p NJ tube placement # Double expressor germinal center DLBCL on treatment with Preston-R-CHP # Constipation PEG-J placement 09/27 Daily tube feeds Educated not to over eat orally bentyl Lidocaine patch for abdominal pain Appreciate Surgery consultation: Consultation in November with PEG-J in interim. Will need to go through acute rehab and nutritional optimization prior to surgery # Prior CVA # R-sided weakness, no acute stroke # HTN # HLD # Hx thyroid cancer s/p thyroidectomy # Gout # R knee effusion # T2DM Consult rheumatology, appreciate recs. Performed arthrocentesis and therapeutic injection on 09/20 of R knee. MSU crystal present to confirm gout. Consider 2 days of prednisone 20 mg if pain returns Hold metformin, Jardiance Mild Correction scale Continue home meds through NJ tube: ASA 81mg daily Simvastatin 20mg daily Allopurinol 300mg daily Elavil 12.5mg prn (used for peripheral neuropathy) Synthroid # Normocytic anemia # Neutropenia, resolved Normocytic anemia has improved since last cycle of chemotherapy. Continue prophylactic acyclovir # Urinary retention (resolved) has been an issue since spine surgery (10/23/2019) Continue Flomax Current Activity/Mobility: BMAT Level 4 (Able to stand and walk; needs staff assist if fall risk factors identified) Diet: Very restricted diet, pleasure eating only, enteral nutrition via PEG Tubes/lines: PIV, PEG VTE prophylaxis: enoxaparin Disposition: home Stable to discharge criteria (not met): Tests/procedures/consults Severe Malnutrition The patient meets the ASPEN Criteria of malnutrition based on: Energy Intake: No Change Interpretation of Weight Loss: greater than 20% 1 year Body Fat: Severe Loss Muscle Mass: Severe Loss This is in the context of Chronic Illness. Malnutrition Present Upon Admission: Yes Agree with Registered Dietitian's assessment and treatment plan: Interventions: Enteral nutrition Plan discussed with Hematology 3 Food Beverage Server who was present during the duncan portions of the evaluation today. Please page [place] Hemat[place] 3 [place] [phone] with any questions. GER VIDEO * Kayla Jones O.T., O.T.D., [facility] - 10/01/2023 4:21 PM CST 10/01/23 5131 Reason Therapy Missed Reason Therapy Missed Receiving other care (Patient receiving nursing cares at time of attempt.) GER VIDEO * James Diaz P.T.A. - 10/01/2023 1:40 PM CST Physical Therapy Inpatient Treatment Note SUBJECTIVE Patient's Name: Hola Lau Referring/Attending: Xavi Arita M.D. Medical Diagnosis: Leukopenia [D72.819] Neutropenia (HCC) [D70.9] Obstruction Intestinal (HCC) [K56.609] Reason for Referral: PT Evaluate and Treat PT General Acute Onset Date: 09/14/23 Payor: MEDICARE / Plan: MEDICARE A AND B / Product Type: Medicare / History of Present Illness: Hola Lau is a 72 y.o. male who was admitted to [facility] in [place] on 09/14/2023 for Leukopenia, neutropenia, obstruction Intestinal. Family/Caregiver Present: Yes Patient Comments: Patient states he is feeling better than yesterday and agrees to physical therapy. Precautions Other Precautions: right foot drop - use shoes and ankle foot orthosis, fall risk Fall Risk (65 and older) Fall in the last 12 months: Yes Did you have an injury with the fall?: No Are you fearful of falling?: Yes Fall Risk Comments: Feels unsteady OBJECTIVE Treatment consisted of: Bed Mobility - Supine to Sit # of Assistants: 1 Level of Assistance: Supervision/Set-up Device: None Bed Mobility - Sit to Supine # of Assistants: 1 Level of Assistance: Supervision/Set-up Device: None Sit to Stand Transfers # of Assistants: 1 Transfer Equipment: Gait belt, Front wheeled walker Level of Assistance: Contact guard assistance Assessment/Delivery: Assessed Stand to Sit Transfers # of Assistants: 1 Transfer Equipment: Gait belt, Front wheeled walker Level of Assistance: Contact guard assistance Assessment/Delivery: Assessed Gait Assessment/Training Distance (m): 40 m Device: Gait belt, Front-wheeled walker # of Assistants: 1 Level of Assistance: Contact guard assistance Quality/Pattern: Decreased heel strike, Decreased toe off, Ataxic Stability: Good with front wheeled walker. Assessment of Gait: Patient taking a slow pace and shows significant right foot drop even with his ankle foot orthosis. Patient corrected for this by lifting right knee higher, so the foot wouldn't drag. Cueing Provided: Verbal Training/Intervention: verbal cues for posture and to lift right leg during gait. Response: Corrected for 10-20' and then would revert back to catching right toes on ground. Patient's nurse was contacted and patient's status was discussed Patient was left in bed at end of session with call light in reach, all needs met and questions answered. Outcome Measures [facility] Inpatient Short Form: -[facility] Basic Mobility (V.2) How much help from another person do you currently need???If the patient hasn't done an activity recently, how much help from another person do you think he/she would needif he/she tried? 1. Turning from your back to your side while in a flat bed without using bedrails?: None 2. Moving from lying on your back to sitting on the side of a flat bed without using bedrails?: None 3. Moving to and from a bed to a chair (including a wheelchair)?: None 4. Standing up from a chair using your arms (e.g., wheelchair, or bedside chair)?: None 5. To walk in hospital room?: A Little 6. Climbing 3-5 steps with a railing?: A Little -[facility] Basic Mobility (V.2) Raw Score: 22 -[facility] Basic Mobility (V.2) Standardized Score: 47.4 Interpretation: Clinicians answer the -[facility] Inpatient Short Form based on observed patient activity and/or clinical judgement (ie. patient can be scored without physically performing each activity) Based on scoring guidelines using the raw score value: Those going to home had an average score at or above 18 Those going to facility had an average score at or below 17 Assessment Discharge Therapy Needs - PT: Ongoing skilled physical therapy Skilled therapy can include physical therapy provided by home health, outpatient clinic, or a post-acute facility. The location of these services is determined by the patient's care team in partnership with patient/family. Level of Care Needed - PT: Assistance with walking and moving around the home Equipment Recommended - PT: 4-wheeled walker owns Barriers to Discharge Home: Current functional status, Fall risk, Safety concerns From a physical therapy perspective, the level of care above has been recommended for Mr. Lau after hospital discharge. This level of care is based on his functional abilities during today's session. This may change throughout the hospital course and will be updated as appropriate. Clinical Impression of today's session: Patient tolerating treatment well, making improvements in mobility and understanding of exercise program. Rehab potential: Mr. Lau has Good potential to achieve established physical therapy goals within the time frame outlined below. Progress: Progressing toward goals Functional Goals and Timeframes: PT Inpatient Goals PT Goal #1: Patient will be able to complete bed mobility independently to demonstrate improved functional independence by discharge PT Goal #1 Status: Achieved PT Goal #2: Patient will be able to complete transfers with modified independence and use of four wheeled walker to demonstrate improved functional independence by discharge PT Goal #2 Status: Progressing PT Goal #3: Patient will be able to ambulate 35 m with use of four wheeled walker and modified independence to demonstrate improved functional independence with ambulating household distances by discharge PT Goal #3 Status: Progressing Plan Treatment Plan: Plan: Continue with current plan PT Frequency: PT Amount: 1 visit per day PT Frequency: 5 times per week PT Inpatient Duration : Until goals are met or hospital discharge Requires Inpatient Follow-Up: Yes PT - Next Inpatient Appointment: 10/02/23 Treatment interventions may include: Treatment/Interventions: Therapeutic exercise, Therapeutic functional activity, Neuromuscular re-education, Gait training SHORT FILLER 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 - 10/01/2023 12:00 PM CST This is an attestation note. I saw and evaluated Mr. Hola Lau, participating in the duncan portions of the inpatient visit service. I discussed the case with the team during rounds. Please refer to Dr. Gonzáles note from today for full details. In summary, Mr. Lau the 72-year-old male with DLBCL status post polaR-CHP x5 (last cycle 08/12/23) in complete remission. He was hospitalized on 09/14 due to abdominal pain, nausea and vomiting. CT scan showed a duodenal obstruction at the site of prior lymphoma involvement. EGD with biopsy was negative for lymphoma involvement, therefore obstruction is likely a treatment sequela. PEJ tube placement on 09/28 for nutrition optimization prior to surgery. No acute events over the last 24 hours. He is feeling much better today, with decreased abdominal pain and bloatedness after limiting his p.o. intake yesterday. He continues to require tube feeding to meet his nutritional needs. Potential discharge in next 1-2 days if her able to arrange for tube feeding at home. GER VIDEO * Jaquan Monroy RGreg. - 10/01/2023 11:06 AM CST [facility] Wound RN following up to assess Hola Lau skin alterations. Wound assessment, pain, and Niels score noted in the flowsheet. The patient consented to photography of the affected area for clinical trending purposes. Images were taken and are available in QREADS. History: 72 y.o. male with DLBCL admitted for abdominal pain. PMH: T2DM, CKD stage 2, TIA (2002), gout, hypertension, and hyperlipidemia , CONNIE on CPAP, arthritis Assessment: Patient assessed in bed. Patient stated he was not having pain in the toes at all. Denzel's only complaint this morning was that he was just tired. The wounds on the toes are healing. The large scab on the right great toe was removed during cleansing and the cap on the left second toe was also removed during cleansing. 3/4 of the toe nail on the second left toe was removed with the cap. The remaining 1/4 of the toe nail remained adhered to the nail bed. Overall the wounds are showing signs of improvement. Please see below for recommendations. Focused assessment completed 10/01/23 1010 Wound 08/07/23 Traumatic Toe 2nd Anterior;Left Date First Assessed/Time First Assessed: 08/07/23 0800 Present on Original Admission: Yes Primary Wound Type: Traumatic Location: Toe 2nd Wound Location Orientation: Anterior;Left Pain Score 0 - none *Shape Round / oval *Wound Length (cm) 0.6 cm *Wound Width (cm) 0.6 cm Wound Surface Area 0.36 cm^2 *Tunneling none Undermining Description none *Signs of Infection None *Wound Bed Red;Brown;Yellow;Partial thickness Tissue Exposed None Odor None *Exudate Amount None Renetta-wound Assessment Blanchable erythema;Erythema;Fragile;Flakes;[place] Treatments Cleansed Periwound Treatment Cleansed (Comment) Wound Cleansed with Wound cleanser (vashe) *Primary Dressing Cadexomer iodine;Hydrogel (75/25) *Primary Dressing Frequency of Change Daily & PRN Primary Dressing Changed Changed Primary Dressing Status Clean;Intact *Secondary Dressing Foam (Mepllex 1x2) *Secondary Dressing Frequency of Change Daily & PRN Secondary Dressing Changed Changed Secondary Dressing Status Clean;Dry;Intact Changed by Wound power and recovery shift engineer Ongoing management Nursing;Wound/manager disaster recovery Wound 09/24/23 Traumatic Toe 1st, great Anterior;Right Date First Assessed/Time First Assessed: 09/24/23 0830 Present on Original Admission: Yes Primary Wound Type: Traumatic Location: Toe 1st, great Wound Location Orientation: Anterior;Right Pain Score 0 - none *Wound Length (cm) 0.4 cm *Wound Width (cm) 0.2 cm Wound Surface Area 0.08 cm^2 *Tunneling none Undermining Description none *Signs of Infection None *Wound Bed Red;[place];Brown;Yellow;Partial thickness Tissue Exposed None Odor None *Exudate Amount None Renetta-wound Assessment Induration;Erythema;Blanchable erythema Treatments Cleansed Periwound Treatment Cleansed (Comment) Wound Cleansed with Wound cleanser (vashe) *Primary Dressing Cadexomer iodine;Hydrogel (75/25) *Primary Dressing Frequency of Change Daily & PRN Primary Dressing Changed Changed Primary Dressing Status Clean;Intact *Secondary Dressing Foam (Mepilex 1x2) *Secondary Dressing Frequency of Change Daily & PRN Secondary Dressing Changed Changed Secondary Dressing Status Clean;Dry;Intact Changed by Wound power and recovery shift engineer Ongoing management Nursing;Wound/manager disaster recovery DRESSING RECOMMENDATIONS: #1 Traumatic Toe 2nd Anterior;Left #2 Traumatic Toe 1st, great Anterior;Right -Cleanse the area with Vashe wound cleanser. Pat dry. -Apply to the wound bed a mix of 75:25 Iodosorb and Hydrogel daily. -DO NOT apply to intact skin. There may be some staining of the skin from Iodosorb. -Cover with a a 1x2 Mepilex border. Change once daily and PRN. Recommended interventions for pressure redistribution and shear reduction: Offload heels on pillows at all times when in bed. Full 30 degree turns side to side every 2 hours with supine positioning only for meals. Reposition at least every hour while in the chair. Keep the HOB below 30 degrees except for meals unless medically contraindicated. Apply a prophylactic sacral Mepilex?? border dressing to cover the coccyx/sacral area. Ensure the dressing is in full contact with the skin to prevent moisture- related skin breakdown. Lift twice daily to assess when used for prevention. Change every 3 days and PRN. Recommended interventions for moisture control: Utilize the breathable incontinence underpads while in bed. Adult briefs should only be worn while ambulating or in the chair. Cleanse with foaming cleanser or wipes after each incontinence episode. Consult recommendations: NA Education: Discussed the plan of care with the patient and nursing. They agree to the plan. The WOC RN will continue to see the patient, contact or reconsult for worsening wounds or new wounds. Electronically signed by: Jaquan Monroy R.N. 10/01/23 11:06 AM MANAGER VIDEO GER VIDEO * Alessandro Gonzáles M.D. - 10/01/2023 7:09 AM CST Images from the original note were not included. HEMATOLOGY 3 SERVICE No care master steam yacht to display SUBJECTIVE Interval events: No acute overnight events Tolerated tube feeds Abdominal pain has resolved, no acute complaints, feels ready for teaching OBJECTIVE VITAL SIGNS Temperature: [36.3 ??C-36.8 ??C] 36.7 ??C Resp Rate: [14-18] 18 Blood Pressure: (103-134)/(60-69) 134/69 SpO2: [94 %-97 %] 95 % Weight: [70.8 kg] 70.8 kg BMI (Calculated): [23.1 kg/m??] 23.1 kg/m?? Pulse Rate: [78-106] 106 PHYSICAL EXAM General: No acute distress, no discomfort HEENT: NC/AT. No scleral icterus. Cardiac: RRR with soft systolic ejection murmur. Pulmonary: Regular work of breathing. Clear to anterior auscultation Abdomen: Soft, nondistended. Minimal tenderness to palpation to the right of PEJ. PEJ in place, clean. Skin: No visible rashes Extremities: Warm and well perfused. No lower extremity edema. ASSESSMENT / PLAN Mr. Hola Lau is a 72 y.o. 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 He was due for the 6th cycle on 09/03, which was postponed due to cytopenia. At this point, there is no plan to receive the 6th cycle, rather to refer patient for surgical evaluation given his duodenal stricture. 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 Big Picture: Ultimately he will need surgical intervention for this stricture. Now s/p PEG-J extension. placement on 09/27 without complications. Nutrition team on board for tube feed plans for discharge. Will only eat infrequently for pleasure, small bites. # Hyperkalemia, resolved Likely in the setting of tube feeds and increased oral intake. - Improved # Duodenal obstruction 2/2 stricture s/p NJ tube placement # Double expressor germinal center DLBCL on treatment with Preston-R-CHP # Constipation Calorie count to assess PO intake PEG-J placement 09/27 Tube feeds held for now, will touch base with nutrition Educated not to over eat orally bentyl Lidocaine patch for abdominal pain Appreciate Surgery consultation: Consultation in November with PEG-J in interim. Will need to go through acute rehab and nutritional optimization prior to surgery # Prior CVA # R-sided weakness, no acute stroke # HTN # HLD # Hx thyroid cancer s/p thyroidectomy # Gout # R knee effusion # T2DM Consult rheumatology, appreciate recs. Performed arthrocentesis and therapeutic injection on 09/20 of R knee. MSU crystal present to confirm gout. Consider 2 days of prednisone 20 mg if pain returns Hold metformin, Jardiance Continue basal insulin glargine 4 units nightly -held 2 units of short-acting insulin with meals given tube feeds only Continue home meds through NJ tube: ASA 81mg daily Simvastatin 20mg daily Allopurinol 300mg daily Elavil 12.5mg prn (used for peripheral neuropathy) Synthroid # Normocytic anemia # Neutropenia, resolved Normocytic anemia has improved since last cycle of chemotherapy. Continue prophylactic acyclovir # Urinary retention (resolved) has been an issue since spine surgery (10/23/2019) Continue Flomax Current Activity/Mobility: BMAT Level 4 (Able to stand and walk; needs staff assist if fall risk factors identified) Fall Injury Prevention: I have discussed My Plan for Safe Activity with the patient. Diet: Very restricted diet, pleasure eating only, enteral nutrition via PEG Tubes/lines: PIV, PEG VTE prophylaxis: enoxaparin Disposition: home Stable to discharge criteria (not met): Tests/procedures/consults Severe Malnutrition The patient meets the ASPEN Criteria of malnutrition based on: Energy Intake: No Change Interpretation of Weight Loss: greater than 20% 1 year Body Fat: Severe Loss Muscle Mass: Severe Loss This is in the context of Chronic Illness. Malnutrition Present Upon Admission: Yes Agree with Registered Dietitian's assessment and treatment plan: Interventions: Enteral nutrition Plan discussed with Hematology 3 Food Beverage Server who was present during the duncan portions of the evaluation today. Please page [place] Hematology 3 [place] [phone] with any questions. GER VIDEO * Huong Lamar, LORNAN, LD - 09/30/2023 3:34 PM CST Nutrition Support Service Patient evaluated by Nutrition Support Service with Dr. Cesar Odonnell SUBJECTIVE Mr. Lau is a 72 y.o. male admitted for duodenal obstruction/stricture in the setting of DLBCL (s/p rituximab now receiving ongoing Preston-R-CHP last cycle 08/12) PMH: thyroid cancer s/p thyroidectomy Current Nutrition (since admission): Patient initially had a NG/J tube placed 09/17 and enteral nutrition support with Nutren 1.5 with gradual progression toward rate of 65 mL/hr. Patient tolerated feeding well. On 09/27/23, a 20 japanese PEG with a 10 japanese jejunal extension was placed in GI. Noted TF's held last night d/t fullness, bloating. He also had sharp abdominal pain that comes and goes. This was in the setting of eating 1864 calories and 63 grams protein yesterday. Today, he continues to feel full, TF's remain off and he hasn't eaten breakfast or lunch. Patient and with multiple questions, so Dr. Gonzáles and I visited with patient and , explained the current medical situation,and shared the plan for oral intake for pleasure only and that tube feeds will be his main source of nutrition. Patient and agreeable. Medications: acyclovir, 400 mg, small bowel tube, BID allopurinoL, 300 mg, small bowel tube, Daily aspirin, 81 mg, small bowel tube, Daily diclofenac sodium, 2 g, topical, 4x Daily enoxaparin, 40 mg, subcutaneous, Q24H SUBHASH insulin aspart, 0-13 Units, subcutaneous, TID insulin aspart, 0-7 Units, subcutaneous, Daily at bedtime insulin aspart, 2 Units, subcutaneous, Daily with breakfast insulin aspart, 2 Units, subcutaneous, Daily with lunch insulin aspart, 2 Units, subcutaneous, Daily with dinner insulin glargine, 3 Units, subcutaneous, Daily at bedtime levothyroxine, 112 mcg, small bowel tube, Once per day on Saturday levothyroxine, 224 mcg, small bowel tube, Once per day on Saturday lidocaine, 1 patch, transdermal, Q24H methyl salicylate-menthol, 1 Application, topical, TID simvastatin, 20 mg, small bowel tube, Daily at bedtime sodium chloride (PF) 0.9 %, 1-100 mL, intravenous, Once sodium zirconium cyclosilicate, 5 g, oral, Once tamsulosin, 0.4 mg, oral, Daily Lactated Ringer's, 20 mL/hr, Last Rate: 20 mL/hr (09/27/23 1602) Pertinent Labs: Recent Results (from the past 24 hour(s)) Glucose, POCT Collection Time: 09/29/23 6:03 PM Result Value Glucose, POCT, B 217 (H) Last Intake 3-4 hours Glucose, POCT Collection Time: 09/29/23 9:05 PM Result Value Glucose, POCT, B 175 (H) Site Capillary Last Intake ContTubFdg Basic Metabolic Panel Collection Time: 09/30/23 5:26 AM Result Value Potassium, S 4.7 Sodium, S 133 (L) Chloride, S 98 Bicarbonate, S 29 Anion Gap 6 (L) BUN (Blood Urea Nitrogen), S 30 (H) Creatinine 0.70 (L) Estimated GFR (eGFR) >90 Calcium, Total, S 8.3 (L) Glucose, S 129 CBC no call back, reflex T/S HGB <8 Collection Time: 09/30/23 5:26 AM Result Value Hemoglobin 8.5 (L) Hematocrit 25.9 (L) Erythrocytes 2.82 (L) MCV 91.8 RBC Distrib Width 16.8 (H) Platelet Count 192 Leukocytes 10.5 (H) Neutrophils 9.40 (H) Lymphocytes 0.27 (L) Monocytes 0.45 Eosinophils 0.35 Basophils <0.03 Magnesium Collection Time: 09/30/23 5:26 AM Result Value Magnesium, S 1.7 Phosphorus Inorganic Collection Time: 09/30/23 5:26 AM Result Value Phosphorus (Inorganic), S 3.3 Glucose, POCT Collection Time: 09/30/23 9:51 AM Result Value Glucose, POCT, B 130 Site Capillary Last Intake > 4 hours Glucose, POCT Collection Time: 09/30/23 12:10 PM Result Value Glucose, POCT, B 140 Site Capillary Last Intake > 4 hours OBJECTIVE Current Nutrition Orders: Current Diet Tube feeding with oral diet -Nutren 1.5 (RTH); Feeding route: Nasojejunal; Feed options: Cyclic; Starting rate (ml/hr): 60; Rate advancement (ml/hrs): see comment; Cyclic goal rate (ml/hr): 60 ml/hr x 16 hrs, off 8 hours; Infusion start/stop time:... starting at 09/29 1800 Adult Diet Mechanical Soft; 60 mEq K; High Calorie, High Protein starting at 09/27 1416 Malnutrition Assessment Severe Malnutrition The patient does meet the ASPEN Criteria of malnutrition based on: Energy Intake: No Change Interpretation of Weight Loss: greater than 20% 1 year Body Fat: Severe Loss Muscle Mass: Severe Loss This is in the context of Chronic Illness. Anthropometrics: Height: 175 cm Admission Weight: 73.3 kg (09/14/2023) Current Weight: 72.2 kg BMI (Calculated): 23.6 kg/m?? Weight change since admission: -1.1 kg Weight Change History: Weight history of 92.3 kg on 01/15/23, 87.3 kg on 04/29/23, 80.1 kg on 05/21/23.Weight loss of 19 kg (20.5%) in 8 months, clinically significant, 14 kg (16%) in 5 months, also clinically significant. Estimated Needs: Total Calorie Needs: 8143-7195 calories/day Method to Estimate Energy Needs: kcal/kg (25-30 kcal/kg) Weight Used for Equation Calculations: 70 kg Total Protein Needs: 70 - 105 grams/day Method to Estimate Protein Needs (g/kg): 1 - 1.5 gm/kg Weight Used to Calculate Protein Needs (Kg): 70 kg NUTRITION DIAGNOSIS: Altered GI function related to duodenal obstruction 2/2 known malignancy as evidenced by need for nutrition support w/ [place] tube placement w/ gastric decompression port. Nutrition Diagnosis Reassessment: Ongoing NUTRITION PLAN/MONITORING/EVALUATION: Interventions: Enteral nutrition Monitoring: Enteral, Weight Status, Pertinent Labs, Fluid Balance Evaluation: Progressing ASSESSMENT / PLAN ASPEN Criteria Malnutrition Status: Severe Malnutrition RECOMMENDATIONS: Given abdominal complaints, will restart TF's of Nutren 1.5 at 30 mL/hr and advance every 6-8 hours(as tolerated by patient) to a goal of 52 mL/hr for 24 hours. Once this is tolerated, can transition to condensed feeds as follows (this can also be done at home): Cycle toward nighttime (or daytime if pt prefers) feeding as tolerated: 63 mL/hr for 20 hrs/day 78 mL/hr for 16 hrs/day 90 mL/hr for 14 hrs/day 104 mL/hr for 12 hrs/day Tube feeding at goal rate will provide 1250 mL, 1875 kcal, 85 g protein, and 100% US Reference Daily Intake of vitamins and minerals per day. Free water flushes: 60 mL four times per day. Additional as needed if patient unable to drink enough water by mouth to maintain hydration. Homegoing tube feeding education will need to be completed prior to hospital discharge. We will plan for this Saturday. Home Enteral Nutrition team following. Durable Medical Equipment (DME)/Infusion company for tube feeding supplies is: [place]: ; [place] [facility] . DC'd calorie count. Modified diet order to avoid high calorie, high protein features as oral diet will not be the main source of nutrition. Nutrition Support Service ([facility]) will continue to follow. Page [phone] with questions. GER VIDEO * Xavi Arita M.D. - 09/30/2023 11:54 AM CST This is an attestation note. I saw and evaluated Mr. Hola Lau, participating in the duncan portions of the inpatient visit service. I discussed the case with the team during rounds. Please refer to Dr. Gonzáles note from today for full details. In summary, Mr. Lau the 72-year-old male with DLBCL status post polaR-CHP x5 (last cycle 08/12/23) in complete remission. He was hospitalized on 09/14 due to abdominal pain, nausea and vomiting. CT scan showed a duodenal obstruction at the site of prior lymphoma involvement. EGD with biopsy was negative for lymphoma involvement, therefore obstruction is likely a treatment sequela. PEJ tube placement on 09/28 for nutrition optimization prior to surgery. No acute events overnight. P.o. intake was liberalized at day before, had 2.1 L of p.o. intake yesterday, with reporting of increasing abdominal distention and discomfort. Plan to limit the amount ofp.o. intake, while continuing nutrition through the PEJ tube. Repeat abdominal x-ray today to ensure adequate placement of the PEJ tube. GER VIDEO * Bettie Jones O.T., O.TBeny - 09/30/2023 10:41 AM CST 09/30/23 1041 Reason Therapy Missed Reason Therapy Missed Patient declined therapy-Patient politely declined therapy this AM, reportingincreased abdominal pain. O * James Diaz P.TBridgette - 09/30/2023 10:18 AM CST 09/30/23 1017 Reason Therapy Missed Reason Therapy Missed Patient declined therapy (Patient politely declined physical therapy on this date due to increased abdominal pain. Patient state he may be going to XR to check on tube placement. Resume physical therapy tomorrow as able.) GER VIDEO * Alessandro Gonzáles M.D. - 09/30/2023 7:40 AM CST Images from the original note were not included. HEMATOLOGY 3 SERVICE No care master steam yacht to display SUBJECTIVE Interval events: Abdominal pain over night, tube feeds held around 11pm Feels like he is tolerating the oral diet and is getting too much from the tube feed OBJECTIVE VITAL SIGNS Temperature: [36.3 ??C-36.9 ??C] 36.8 ??C Resp Rate: [16] 16 Blood Pressure: (121-131)/(66-73) 123/68 SpO2: [94 %-99 %] 95 % Weight: [72.2 kg] 72.2 kg BMI (Calculated): [23.6 kg/m??] 23.6 kg/m?? Pulse Rate: [86-106] 92 PHYSICAL EXAM General: uncomfortable appearing 2/2 pain, tired HEENT: NC/AT. No scleral icterus. Cardiac: RRR with soft systolic ejection murmur. Pulmonary: Regular work of breathing. Clear to anterior auscultation Abdomen: Soft, nondistended. Minimal tenderness to palpation to the right of PEJ. PEJ in place, clean. Skin: No visible rashes Extremities: Warm and well perfused. No lower extremity edema. ASSESSMENT / PLAN Mr. Hola Lau is a 72 y.o. 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 He was due for the 6th cycle on 09/03, which was postponed due to cytopenia. At this point, there is no plan to receive the 6th cycle, rather to refer patient for surgical evaluation given his duodenal stricture. 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 Big Picture: Ultimately he will need surgical intervention for this stricture. Now s/p PEG-J extension. placement on 09/27 without complications. Nutrition team on board for tube feed plans for discharge. # Hyperkalemia, resolved Likely in the setting of tube feeds and increased oral intake. - Improved # Duodenal obstruction 2/2 stricture s/p [place] tube placement # Double expressor germinal center DLBCL on treatment with Preston-R-CHP # Constipation Calorie count to assess PO intake PEG-J placement 09/27 Tube feeds held for now, will touch base with nutrition Abdominal xray to assess tube position Educated not to over eat orally Adding bentyl Lidocaine patch for abdominal pain Appreciate Surgery consultation: Consultation in November with PEG-J in interim. Will need to go through acute rehab and nutritional optimization prior to surgery # Prior CVA # R-sided weakness, no acute stroke # HTN # HLD # Hx thyroid cancer s/p thyroidectomy # Gout # R knee effusion # T2DM Consult rheumatology, appreciate recs. Performed arthrocentesis and therapeutic injection on 09/20 of R knee. MSU crystal present to confirm gout. Consider 2 days of prednisone 20 mg if pain returns Hold metformin, Jardiance Continue basal insulin glargine 4 units nightly with 2 units aspart pre meal TID Continue home meds through [place] tube: ASA 81mg daily Simvastatin 20mg daily Allopurinol 300mg daily Elavil 12.5mg prn (used for peripheral neuropathy) Synthroid # Normocytic anemia # Neutropenia, resolved Normocytic anemia has improved since last cycle of chemotherapy. Continue prophylactic acyclovir # Urinary retention (resolved) has been an issue since spine surgery (10/23/2019) Continue Flomax Current Activity/Mobility: BMAT Level 4 (Able to stand and walk; needs staff assist if fall risk factors identified) Fall Injury Prevention: I have discussed My Plan for Safe Activity with the patient. Diet: NPO Tubes/lines: PIV VTE prophylaxis: enoxaparin Disposition: Acute rehab Stable to discharge criteria (not met): Tests/procedures/consults Severe Malnutrition The patient meets the ASPEN Criteria of malnutrition based on: Energy Intake: No Change Interpretation of Weight Loss: greater than 20% 1 year Body Fat: Severe Loss Muscle Mass: Severe Loss This is in the context of Chronic Illness. Malnutrition Present Upon Admission: Yes Agree with Registered Dietitian's assessment and treatment plan: Interventions: Enteral nutrition Plan discussed with Hematology 3 Food Beverage Server who was present during the duncan portions of the evaluation today. [place] page [place] Hematology 3 [place] [phone] with any questions. GER VIDEO * Taina Mclaughlin M.B.B.S. - 09/29/2023 11:56 AM CST Supervisory Note for Hematology 3 Service I saw and evaluated the patient, participating in the duncan portions of the service. I reviewed the resident/fellow???s note. I agree with the resident/fellow???s findings and plan. Hematological history: 72 y.o. 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 He presented to the hospital for abdominal pain, nausea and 5 episodes of emesis with CT evidence of recurrent duodenal obstruction inthe 3rd segment of duodenum at the area of known lymphomatous involvement with no perforation. SUBJECTIVE Patient was seen this morning with the team. Overnight no new events. Tolerating diet really well. Has some pain in the abdomen area every time he coughs at the site of PEJ placement. OBJECTIVE Vitals: 09/29/23 0805 BP: 121/72 Pulse: 86 Resp: 16 Temp: 36.3 ??C SpO2: 94% General: Appears comfortable, stated age, no acute distress. HEENT: no oral lesions, moist mucus membranes Recent Results (from the past 24 hour(s)) Glucose, POCT Collection Time: 09/28/23 12:19 PM Result Value Glucose, POCT, B 184 (H) Site Capillary Last Intake ContTubFdg Glucose, POCT Collection Time: 09/28/23 12:46 PM Result Value Glucose, POCT, B 151 (H) Site Capillary Last Intake ContTubFdg Glucose, POCT Collection Time: 09/28/23 5:13 PM Result Value Glucose, POCT, B 176 (H) Site Capillary Last Intake 2-3 hours Glucose, POCT Collection Time: 09/28/23 9:19 PM Result Value Glucose, POCT, B 138 Site Capillary Last Intake 3-4 hours Basic Metabolic Panel Collection Time: 09/29/23 5:30 AM Result Value Potassium, S 5.0 Sodium, S 135 Chloride, S 100 Bicarbonate, S 27 Anion Gap 8 BUN (Blood Urea Nitrogen), S 26 (H) Creatinine 0.73 (L) Estimated GFR (eGFR) >90 Calcium, Total, S 8.3 (L) Glucose, S 113 Magnesium Collection Time: 09/29/23 5:30 AM Result Value Magnesium, S 1.9 Phosphorus Inorganic Collection Time: 09/29/23 5:30 AM Result Value Phosphorus (Inorganic), S 3.1 CBC no call back, reflex T/S HGB <8 Collection Time: 09/29/23 5:30 AM Result Value Hemoglobin 9.0 (L) Hematocrit 28.1 (L) Erythrocytes 2.99 (L) MCV 94.0 RBC Distrib Width 16.9 (H) Platelet Count 227 Leukocytes 8.3 Neutrophils 7.04 (H) Lymphocytes 0.40 (L) Monocytes 0.44 Eosinophils 0.40 Basophils 0.03 Glucose, POCT Collection Time: 09/29/23 5:58 AM Result Value Glucose, POCT, B 113 Site Capillary Last Intake 3-4 hours Med list reviewed. 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 Post 5 cycles of polatuzumab [id number] Last PET scan on 08/09/2023 showed near CR. With this duodenal obstruction, patient underwent upperEGD with biopsies which were negative for any lymphoma involvement. This is likely a sequelae post treatment that he is experiencing obstruction PEJ placement with GI was done on 09/27/2023. Tube feeds are currently ongoing in plan is to get them to go by Saturday. Discussed with nutrition if to switch the tube feeds to nocturnal feeds only andto let him eat by mouth during the day. Patient will likely need surgical correction which is currently being coordinated outpatient after nutritional optimization. No further chemotherapy planned at this time Patient will have outpatient follow-up with the primary lymphoma team after hospital discharge. Pancytopenia the setting of chemotherapy Cycle 6 was delayed in the setting of delayed count recovery. Counts are improving now 6 at this time. Patient not neutropenic anymore will discontinue fluconazole and levofloxacin will continue acyclovir for now Rest as per resident's note Evelyn Mercedes.S. 09/29/23 GER VIDEO * Renee Mancilla M.D. - 09/29/2023 6:59 AM CST Images from the original note were not included. 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 Hola Lau is a 72 y.o. 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 He presented to the hospital for abdominal pain, nausea and 5 episodes of emesis with CT evidence of recurrent duodenal obstruction in the 3rd segment of duodenum at the area of known lymphomatous involvement with no perforation. SUBJECTIVE No events overnight. Tolerating soft diet well No nausea/vomiting. Mild abdominal pain when coughing since after procedure; continuing to improve this morning. Also having a sharp abdominal pain when both eating by mouth and tube feeds are running. Says he is eating 100% of meals OBJECTIVE VITAL SIGNS Temperature: [36.2 ??C-36.9 ??C] 36.7 ??C Resp Rate: [14-18] 15 Blood Pressure: (101-149)/(50-79) 149/79 SpO2: [96 %-98 %] 97 % Weight: [71.3 kg] 71.3 kg BMI (Calculated): [23.3 kg/m??] 23.3 kg/m?? Pulse Rate: [87-99] 96 PHYSICAL EXAM General: Well appearing, no acute distress. HEENT: NC/AT. No scleral icterus. Cardiac: RRR with soft systolic ejection murmur. Pulmonary: Regular work of breathing. Clear to anterior auscultation Abdomen: Soft, nondistended. Minimal tenderness to palpation to the right of PEJ. PEJ in place, clean. Skin: No visible rashes Extremities: Warm and well perfused. No lower extremity edema. ASSESSMENT / PLAN Mr. Hola Lau is a 72 y.o. 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 He was due for the 6th cycle on 09/03, which was postponed due to cytopenia. At this point, there is no plan to receive the 6th cycle, rather to refer patient for surgical evaluation given his duodenal stricture. 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 Ultimately he will need surgical intervention for this stricture. Now s/p PEJ placement on 09/27 without complications. Nutrition team on board for tube feed plans for discharge. # Hyperkalemia, resolved Likely in the setting of tube feeds and increased oral intake. - Improved # Duodenal obstruction 2/2 stricture s/p NJ tube placement # Double expressor germinal center DLBCL on treatment with Preston-R-CHP # Constipation Nutrition following, currently on [place] feeds and soft diet Calorie count to assess PO intake PEG-J placement 09/27 Tube feeds per NTR; will keep at 60cc/hr given increased intake and touch base with NTR tomorrow Lidocaine patch for abdominal pain Appreciate Surgery consultation: Consultation in November with PEG-J in interim. Will need to go through acute rehab and nutritional optimization prior to surgery # Prior CVA # R-sided weakness, no acute stroke # HTN # HLD # Hx thyroid cancer s/p thyroidectomy # Gout # R knee effusion # T2DM Consult rheumatology, appreciate recs. Performed arthrocentesis and therapeutic injection on 09/20 of R knee. MSU crystal present to confirm gout. Consider 2 days of prednisone 20 mg if pain returns Hold metformin, Jardiance Continue basal insulin glargine 4 units nightly with 2 units aspart pre meal TID Continue home meds through [place] tube: ASA 81mg daily Simvastatin 20mg daily Allopurinol 300mg daily Elavil 12.5mg prn (used for peripheral neuropathy) Synthroid # Normocytic anemia # Neutropenia, resolved Normocytic anemia has improved since last cycle of chemotherapy. Continue prophylactic acyclovir # Urinary retention (resolved) has been an issue since spine surgery (10/23/2019) Continue Flomax Current Activity/Mobility: BMAT Level 4 (Able to stand and walk; needs staff assist if fall risk factors identified) Fall Injury Prevention: I have discussed My Plan for Safe Activity with the patient. Diet: NPO Tubes/lines: PIV VTE prophylaxis: enoxaparin Disposition: Acute rehab Stable to discharge criteria (not met): Tests/procedures/consults Severe Malnutrition The patient meets the ASPEN Criteria of malnutrition based on: Energy Intake: No Change Interpretation of Weight Loss: greater than 20% 1 year Body Fat: Severe Loss Muscle Mass: Severe Loss This is in the context of Chronic Illness. Malnutrition Present Upon Admission: Yes Agree with Registered Dietitian's assessment and treatment plan: Interventions: Enteral nutrition Plan discussed with Hematology 3 Food Beverage Server who was present during the duncan portions of the evaluation today. Please page [place] H[place]ology 3 [place] [phone] with any questions. GER VIDEO * Taina Mclaughlin M.B.B.S. - 09/28/2023 1:33 PM CST Supervisory Note for Hematology 3 Service I saw and evaluated the patient, participating in the duncan portions of the service. I reviewed the resident/fellow???s note. I agree with the resident/fellow???s findings and plan. Hematological history: 72 y.o. 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 He presented to the hospital for abdominal pain, nausea and 5 episodes of emesis with CT evidence of recurrent duodenal obstruction inthe 3rd segment of duodenum at the area of known lymphomatous involvement with no perforation. SUBJECTIVE Patient was seen this morning with the team. Overnight no new events. He got his percutaneous interim jejunostomy tube. Tolerating tube feeds through that well so far. OBJECTIVE Vitals: 09/28/23 1300 BP: 131/70 Pulse: Resp: Temp: SpO2: General: Appears comfortable, stated age, no acute distress. HEENT: no oral lesions, moist mucus membranes Enteral tube site looks clean and intact Recent Results (from the past 24 hour(s)) Potassium Collection Time: 09/27/23 1:55 PM Result Value Potassium, S 5.4 (H) Glucose, POCT Collection Time: 09/27/23 5:24 PM Result Value Glucose, POCT, B 192 (H) Last Intake 2-3 hours Potassium, Plasma Collection Time: 09/27/23 8:06 PM Result Value Potassium, P 5.0 Glucose, POCT Collection Time: 09/27/23 9:36 PM Result Value Glucose, POCT, B 192 (H) Basic Metabolic Panel Collection Time: 09/28/23 5:51 AM Result Value Potassium, S 5.3 (H) Sodium, S 134 (L) Chloride, S 99 Bicarbonate, S 27 Anion Gap 8 BUN (Blood Urea Nitrogen), S 31 (H) Creatinine 0.80 Estimated GFR (eGFR) >90 Calcium, Total, S 8.0 (L) Glucose, S 99 CBC no call back, reflex T/S HGB <8 Collection Time: 09/28/23 5:51 AM Result Value Hemoglobin 8.6 (L) Hematocrit 25.8 (L) Erythrocytes 2.82 (L) MCV 91.5 RBC Distrib Width 16.8 (H) Platelet Count 210 Leukocytes 9.9 (H) Neutrophils 8.69 (H) Lymphocytes 0.36 (L) Monocytes 0.41 Eosinophils 0.38 Basophils <0.03 Magnesium Collection Time: 09/28/23 5:51 AM Result Value Magnesium, S 1.6 (L) Phosphorus Inorganic Collection Time: 09/28/23 5:51 AM Result Value Phosphorus (Inorganic), S 3.8 Glucose, POCT Collection Time: 09/28/23 8:56 AM Result Value Glucose, POCT, B 139 Site Capillary Last Intake <1 hour Glucose, POCT Collection Time: 09/28/23 12:19 PM Result Value Glucose, POCT, B 184 (H) Site Capillary Last Intake ContTubFdg Med list reviewed. 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 Post 5 cycles of polatuzumab [id number] Last PET scan on 08/09/2023 showed near CR. With this duodenal obstruction, patient underwent upperEGD with biopsies which were negative for any lymphoma involvement. This is likely a sequelae post treatment that he is experiencing obstruction PEJ placement with GI Yesterday. He tolerated that well. Tube feeds are currently ongoing in plan is to get them to go by Saturday. Patient will likely need surgical correction which is currently being coordinated outpatient after nutritional optimization. No further chemotherapy planned at this time Patient will have outpatient follow-up with the primary lymphoma team after hospital discharge. Right Knee effusion Pain infusion improved after therapeutic injection on 09/12/2023. Monosodium urate crystals presentconfirmed gout. Pancytopenia the setting of chemotherapy Cycle 6 was delayed in the setting of delayed count recovery. Counts are improving now 6 at this time. Patient not neutropenic anymore will discontinue fluconazole and levofloxacin will continue acyclovir for now Rest as per resident's note Ana Mercedes 09/28/23 GER VIDEO * Renee Mancilla M.D. - 09/28/2023 7:03 AM CST Images from the original note were not included. 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 Hola Lau is a 72 y.o. 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 He presented to the hospital for abdominal pain, nausea and 5 episodes of emesis with CT evidence of recurrent duodenal obstruction in the 3rd segment of duodenum at the area of known lymphomatous involvement with no perforation. SUBJECTIVE No events overnight. Tolerating soft diet well No nausea/vomiting. Mild abdominal pain when coughing after procedure; improving this morning OBJECTIVE VITAL SIGNS Temperature: [36.4 ??C-36.9 ??C] 36.9 ??C Heart Rate: [68-86] 70 Resp Rate: [11-27] 20 Blood Pressure: (112-135)/(61-85) 116/61 SpO2: [95 %-99 %] 96 % Height: [175 cm] 175 cm Weight: [70.9 kg] 70.9 kg BMI (Calculated): [23.2 kg/m??] 23.2 kg/m?? Pulse Rate: [61-93] 72 PHYSICAL EXAM General: Well appearing, no acute distress. HEENT: NC/AT. No scleral icterus. Cardiac: RRR with soft systolic ejection murmur. Pulmonary: Regular work of breathing. Clear to anterior auscultation Abdomen: Soft, nondistended. Minimal tenderness to palpation in right periumbilical area. PEJ in place, clean. Skin: On the feet there are ulcerations on the right great toe and the left toe that are covered with bandages without strikethrough Extremities: Warm and well perfused. No lower extremity edema. ASSESSMENT / PLAN Mr. Hola Lau is a 72 y.o. 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 He was due for the 6th cycle on 09/03, which was postponed due to cytopenia. At this point, there is no plan to receive the 6th cycle, rather to refer patient for surgical evaluation given his duodenal stricture. 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 Ultimately he will need surgical intervention for this stricture. Now s/p PEJ placement on 09/27 without complications. Nutrition team on board for tube feed plans for discharge. # Hyperkalemia Likely in the setting of tube feeds and increased oral intake. - Improving. Additional dose of lokelma today # Duodenal obstruction 2/2 stricture s/p [place] tube placement # Double expressor germinal center DLBCL on treatment with Preston-R-CHP # Constipation Nutrition following, currently on [place] feeds and full liquid diet. PEG-J placement 09/27 Tube feeds per NTR; continue increasing to goal Lidocaine patch for abdominal pain Appreciate Surgery consultation: Consultation in November with PEG-J in interim. Will need to go through acute rehab and nutritional optimization prior to surgery # Prior CVA # R-sided weakness, no acute stroke # HTN # HLD # Hx thyroid cancer s/p thyroidectomy # Gout # R knee effusion # T2DM Consult rheumatology, appreciate recs. Performed arthrocentesis and therapeutic injection on 09/20 of R knee. MSU crystal present to confirm gout. Consider 2 days of prednisone 20 mg if pain returns Hold metformin, Jardiance Continue basal insulin glargine 4 units nightly with 2 units aspart pre meal TID Continue home meds through [place] tube: ASA 81mg daily Simvastatin 20mg daily Allopurinol 300mg daily Elavil 12.5mg prn (used for peripheral neuropathy) Synthroid # Normocytic anemia # Neutropenia, resolved Normocytic anemia has improved since last cycle of chemotherapy. Continue prophylactic acyclovir # Urinary retention (resolved) has been an issue since spine surgery (10/23/2019) Continue Flomax Current Activity/Mobility: BMAT Level 4 (Able to stand and walk; needs staff assist if fall risk factors identified) Fall Injury Prevention: I have discussed My Plan for Safe Activity with the patient. Diet: NPO Tubes/lines: PIV VTE prophylaxis: enoxaparin Disposition: Acute rehab Stable to discharge criteria (not met): Tests/procedures/consults Severe Malnutrition The patient meets the ASPEN Criteria of malnutrition based on: Energy Intake: No Change Interpretation of Weight Loss: greater than 20% 1 year Body Fat: Severe Loss Muscle Mass: Severe Loss This is in the context of Chronic Illness. Malnutrition Present Upon Admission: Yes Agree with Registered Dietitian's assessment and treatment plan: Interventions: Enteral nutrition Plan discussed with Hematology 3 Food Beverage Server who was present during the duncan portions of the evaluation today. Please page [place] Hematology 3 [place] [phone] with any questions. GER VIDEO * Macie Thakkar P.T., D.P.T. - 09/27/2023 4:37 PM CST 09/27/23 1507 Reason Therapy Missed Reason Therapy Missed Patient declined therapy Patient politely declined physical therapy in both the AM and PM. Will follow up as patient is medically appropriate, willing, and available. GER VIDEO * Maricruz Michaud RDN, PORSHA - 09/27/2023 3:37 PM CST Home enteral nutrition - Please see our initial note dated 09/17/23 for details Notified by NSS team that Mr. Huerta underwent a new tube placement today. New tube: Avanos 20 [place] PEG with a 10 [place] jejunal extension, small-bore placed 09/27/2023 by GI Care Coordination: Updated DME orders and faxed to [place] Follow-up Plan [facility] team will follow upon dismissal. We will also see him in our clinic to establish care (this has been ordered) GER VIDEO * Taina Mclaughlin M.B.B.S. - 09/27/2023 3:07 PM CST Supervisory Note for Hematology 3 Service I saw and evaluated the patient, participating in the duncan portions of the service. I reviewed the resident/fellow???s note. I agree with the resident/fellow???s findings and plan. Hematological history: 72 y.o. 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 He presented to the hospital for abdominal pain, nausea and 5 episodes of emesis with CT evidence of recurrent duodenal obstruction inthe 3rd segment of duodenum at the area of known lymphomatous involvement with no perforation. SUBJECTIVE Patient was seen this morning with the team. Overnight no new events. He is planned for PE-J placement today with GI tolerating diet well OBJECTIVE Vitals: 09/27/23 1326 BP: Pulse: Resp: Temp: 36.5 ??C SpO2: General: Appears comfortable, stated age, no acute distress. HEENT: no oral lesions, moist mucus membranes Recent Results (from the past 24 hour(s)) Glucose, POCT Collection Time: 09/26/23 3:28 PM Result Value Glucose, POCT, B 216 (H) Site Capillary Last Intake ContTubFdg Glucose, POCT Collection Time: 09/26/23 5:57 PM Result Value Glucose, POCT, B 174 (H) Site Capillary Last Intake ContTubFdg Glucose, POCT Collection Time: 09/26/23 8:19 PM Result Value Glucose, POCT, B 231 (H) Site Capillary Last Intake ContTubFdg Uric Acid Collection Time: 09/27/23 5:48 AM Result Value Uric Acid, S 3.1 (L) Magnesium Collection Time: 09/27/23 5:48 AM Result Value Magnesium, S 1.7 Phosphorus Inorganic Collection Time: 09/27/23 5:48 AM Result Value Phosphorus (Inorganic), S 4.8 (H) Basic Metabolic Panel Collection Time: 09/27/23 5:53 AM Result Value Potassium, S 5.6 (H) Sodium, S 135 Chloride, S 99 Bicarbonate, S 28 Anion Gap 8 BUN (Blood Urea Nitrogen), S 34 (H) Creatinine 0.76 Estimated GFR (eGFR) >90 Calcium, Total, S 8.6 (L) Glucose, S 116 CBC with Differential, Blood Collection Time: 09/27/23 5:53 AM Result Value Hemoglobin 8.9 (L) Hematocrit 27.7 (L) Erythrocytes 2.99 (L) MCV 92.6 RBC Distrib Width 16.7 (H) Platelet Count 235 Leukocytes 7.6 Neutrophils 6.24 Lymphocytes 0.44 (L) Monocytes 0.53 Eosinophils 0.33 Basophils <0.03 Prothrombin Time (PT) Collection Time: 09/27/23 5:53 AM Result Value Prothrombin Time, P 11.8 INR 1.1 Glucose, POCT Collection Time: 09/27/23 8:08 AM Result Value Glucose, POCT, B 132 Site Capillary Last Intake > 4 hours Glucose, POCT Collection Time: 09/27/23 11:22 AM Result Value Glucose, POCT, B 105 Glucose, POCT Collection Time: 09/27/23 1:01 PM Result Value Glucose, POCT, B 110 Med list reviewed. 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 Post 5 cycles of polatuzumab [id number] Last PET scan on 08/09/2023 showed near CR. With this duodenal obstruction, patient underwent upperEGD with biopsies which were negative for any lymphoma involvement. This is likely a sequelae post treatment that he is experiencing obstruction Continue NJ tube support with tube feeding. Confirmed with surgery about discharge recommendations based on outcomes of the trial. Plan for PEJ placement with GI today Patient will likely need surgical correction which is currently being coordinated outpatient after nutritional optimization. No further chemotherapy planned at this time Patient will have outpatient follow-up with the primary lymphoma team after hospital discharge. Right Knee effusion Pain infusion improved after therapeutic injection on 09/12/2023. Monosodium urate crystals presentconfirmed gout. Pancytopenia the setting of chemotherapy Cycle 6 was delayed in the setting of delayed count recovery. Counts are improving now 6 at this time. Patient not neutropenic anymore will discontinue fluconazole and levofloxacin will continue acyclovir for now Rest as per resident's note Deyanira Mercedes. 09/27/23 GER VIDEO * Nandini Westfall M.S.N., R.N. - 09/27/2023 3:06 PM CST SUBJECTIVE Unit case packer continues to follow while hospitalized to assist with discharge planning coordination, connection to resources and supportive counseling as appropriate. Discussions occurred with the medical team to inquire when it was felt that Denzel would be medically ready to leave hospital as today is Saturday and trying to be proactive going into the weekend. The primary team indicated that Denzel could be ready for discharge as early as tomorrow, 09/28/23, if he is able to tolerate his tube feedings with his new PEG/J that was placed today. Unit case packer met with Hola Lau in his hospital room to follow-up on discharge planning discussions from earlier in the week and he noted he recalls our discussions. Denzel shared he was aware that the inpatient rehabilitation unit has denied him for admission as it is felt he is doing too well from a functional standpoint and do not feel he has enough rehab goals for a qualifying stay. health safety and environment manager shared with Denzel that the [facility] ([facility]) admissions team is also noting that Denzel was doing really well from a functional standpoint and did not feel he had enough goals fora qualifying rehab stay. Denzel was a bit disappointed to learn that he did not have enough qualifying criteria, but also voiced excitement with being able to return home. He noted that he felt that thebest recovery happens at home as he has to get up and move around to do his activities of daily living. We did discuss options for continuing therapy if he felt that he would benefit from the supportafter discharge, either with home health care or outpatient therapy. health safety and environment manager explained the qualifications for home care with Medicare and the need to be homebound. Denzel voiced disagreement with being homebound and noted that he would want to be able to get out of the house and do things if he was feeling up to it and voiced interest in outpatient therapy. He shared that he knows of an outpatient clinic near his home that he has used previously and is open to going there again. Denzel attempted to contact Rhona by phone to discuss discharge plans collaboratively with case packer, but the cell phone medical receptionist medical assistant in the hospital room was not strong enough to allow for this and Denzel voiced agreement with case packer contacting her outside of his room and following up with him afterwards. health safety and environment manager contacted Rhona ([phone]) to discuss discharge planning and provided her with anupdate regarding inpatient rehab and [facility] admissions team feeling as though Denzel was doing too well for rehab stays. We discussed the options for home health care and outpatient therapy and it was explained that Denzel did not want the restrictions of being homebound for services. She voiced agreement with this and noted that she would be willing and able to help with transporting to appointments. ITwas explained to both Denzel and Rhona that case packer does not coordinate this, but they would be provided with an order to take to an outpatient provider to get connected to services and they voiced understanding of this. OBJECTIVE Mr. Hola Lau is a pleasant 72 year old male who was admitted to the hospital on 09/14/2023for management of Leukopenia [D72.819], Neutropenia (HCC) [D70.9], and Obstruction Intestinal (HCC)[K56.609]. He is anticipated to discharge home with the support of his significant other, Rhona, and outpatient therapy when medically ready for discharge. ASSESSMENT / PLAN ASSESSMENT Denzel was laying in bed during today's visit. He was alert, oriented and actively engaged in today's discussions. He appears to be planning appropriately for his ongoing needs at the time of discharge and has the support of his significant other, Rhona. They both are actively engaged in discharge planning discussions. PLAN Denzel will discharge home with his significant other, Rhona, when medically ready for discharge. He is in agreement with outpatient PT/OT at discharge. Primary team to provide an order for outpatient therapy at the time of discharge. Unit case packer will continue to follow while hospitalized to assist with discharge planning coordination, connection to resources, and supportive counseling as appropriate. Ady Mckeon., R.N. 09/27/23 GER VIDEO * Kyrie Liliana Davila, RDN, LD - 09/27/2023 2:09 PM CST Nutrition Support Service Patient evaluated by Nutrition Support Service with Dr. Tee Reynolds and Dr. Ricardo Stahl. SUBJECTIVE Mr. Lau is a 72 y.o. male admitted for duodenal obstruction/stricture in the setting of DLBCL (s/p rituximab now receiving ongoing Preston-R-CHP last cycle 08/12) PMH: thyroid cancer s/p thyroidectomy Current Nutrition (since admission): NG/J tube placed 09/17 and enteral nutrition support with Nutren1.5 with gradual progression toward rate of 65 mL/hr. Patient tolerated feeding well. Medications: acyclovir, 400 mg, small bowel tube, BID allopurinoL, 300 mg, small bowel tube, Daily aspirin, 81 mg, small bowel tube, Daily diclofenac sodium, 2 g, topical, 4x Daily enoxaparin, 40 mg, subcutaneous, Q24H SUBHASH insulin aspart, 0-13 Units, subcutaneous, TID insulin aspart, 0-7 Units, subcutaneous, Daily at bedtime insulin aspart, 2 Units, subcutaneous, Daily with breakfast insulin aspart, 2 Units, subcutaneous, Daily with lunch insulin aspart, 2 Units, subcutaneous, Daily with dinner insulin glargine, 4 Units, subcutaneous, Daily at bedtime levothyroxine, 112 mcg, small bowel tube, Once per day on Saturday levothyroxine, 224 mcg, small bowel tube, Once per day on Saturday lidocaine, 1 patch, transdermal, Daily simvastatin, 20 mg, small bowel tube, Daily at bedtime sodium chloride (PF) 0.9 %, 1-100 mL, intravenous, Once tamsulosin, 0.4 mg, oral, Daily Lactated Ringer's, 20 mL/hr Pertinent Labs: Recent Results (from the past 24 hour(s)) Potassium Collection Time: 09/26/23 2:52 PM Result Value Potassium, S 5.7 (H) Glucose, POCT Collection Time: 09/26/23 3:28 PM Result Value Glucose, POCT, B 216 (H) Site Capillary Last Intake ContTubFdg Glucose, POCT Collection Time: 09/26/23 5:57 PM Result Value Glucose, POCT, B 174 (H) Site Capillary Last Intake ContTubFdg Glucose, POCT Collection Time: 09/26/23 8:19 PM Result Value Glucose, POCT, B 231 (H) Site Capillary Last Intake ContTubFdg Uric Acid Collection Time: 09/27/23 5:48 AM Result Value Uric Acid, S 3.1 (L) Basic Metabolic Panel Collection Time: 09/27/23 5:53 AM Result Value Potassium, S 5.6 (H) Sodium, S 135 Chloride, S 99 Bicarbonate, S 28 Anion Gap 8 BUN (Blood Urea Nitrogen), S 34 (H) Creatinine 0.76 Estimated GFR (eGFR) >90 Calcium, Total, S 8.6 (L) Glucose, S 116 CBC with Differential, Blood Collection Time: 09/27/23 5:53 AM Result Value Hemoglobin 8.9 (L) Hematocrit 27.7 (L) Erythrocytes 2.99 (L) MCV 92.6 RBC Distrib Width 16.7 (H) Platelet Count 235 Leukocytes 7.6 Neutrophils 6.24 Lymphocytes 0.44 (L) Monocytes 0.53 Eosinophils 0.33 Basophils <0.03 Prothrombin Time (PT) Collection Time: 09/27/23 5:53 AM Result Value Prothrombin Time, P 11.8 INR 1.1 Glucose, POCT Collection Time: 09/27/23 8:08 AM Result Value Glucose, POCT, B 132 Site Capillary Last Intake > 4 hours Glucose, POCT Collection Time: 09/27/23 11:22 AM Result Value Glucose, POCT, B 105 Glucose, POCT Collection Time: 09/27/23 1:01 PM Result Value Glucose, POCT, B 110 OBJECTIVE Current Nutrition Orders: Current Diet No oral nutrition, no tube feeding starting at 09/27 0000 Malnutrition Assessment Severe Malnutrition The patient does meet the ASPEN Criteria of malnutrition based on: Energy Intake: No Change Interpretation of Weight Loss: greater than 20% 1 year Body Fat: Severe Loss Muscle Mass: Severe Loss This is in the context of Chronic Illness. Anthropometrics: Height: 175 cm Admission Weight: 73.3 kg (09/14/2023) Current Weight: 70 kg BMI (Calculated): 22.9 kg/m?? Weight change since admission: -3.3 kg Weight Change History: Weight history of 92.3 kg on 01/15/23, 87.3 kg on 04/29/23, 80.1 kg on 05/21/23.Weight loss of 19 kg (20.5%) in 8 months, clinically significant, 14 kg (16%) in 5 months, also clinically significant. Estimated Needs: Total Calorie Needs: 7302-7514 calories/day Method to Estimate Energy Needs: kcal/kg (25-30 kcal/kg) Weight Used for Equation Calculations: 70 kg Total Protein Needs: 70 - 105 grams/day Method to Estimate Protein Needs (g/kg): 1 - 1.5 gm/kg Weight Used to Calculate Protein Needs (Kg): 70 kg NUTRITION DIAGNOSIS: Altered GI function related to duodenal obstruction 2/2 known malignancy as evidenced by need for nutrition support w/ NJ tube placement w/ gastric decompression port. Nutrition Diagnosis Reassessment: Ongoing NUTRITION PLAN/MONITORING/EVALUATION: Interventions: Enteral nutrition Monitoring: Enteral, Weight Status, Pertinent Labs, Fluid Balance Evaluation: Progressing ASSESSMENT / PLAN ASPEN Criteria Malnutrition Status: Severe Malnutrition RECOMMENDATIONS: If/when gastirc/jejunal tube placed and ready to use, initiate enteral nutrition support with Nutren 1.5, continuous tube feeding program goal of 52 mL/hr for 24 hrs/day. Cycle toward nighttime (or daytime if pt prefers) feeding as tolerated: 63 mL/hr for 20 hrs/day 78 mL/hr for 16 hrs/day 90 mL/hr for 14 hrs/day 104 mL/hr for 12 hrs/day Tube feeding at goal rate will provide 1250 mL, 1875 kcal, 85 g protein, and 100% US Reference Daily Intake of vitamins and minerals per day. Free water flushes: 60 mL four times per day. Additional as needed if patient unable to drink enough water by mouth to maintain hydration. Homegoing tube feeding education will need to be completed prior to hospital discharge. We will plan for this as soon as Saturday once tube in place and tube feeding tolerance established. Home Enteral Nutrition team following. Durable Medical Equipment (DME)/Infusion company for tube feeding supplies is: [place]: ; [place] [facility] . Nutrition Support Service ([facility]) will continue to follow. Page [phone] with questions. GER VIDEO * Ricardo Stahl M.D. - 09/27/2023 11:08 AM CST SUBJECTIVE Mr. Lau had no new complaints for us. OBJECTIVE VITAL SIGNS Temperature: 36.6 ??C Resp Rate: 15 Blood Pressure: 112/85 SpO2: 97 % Weight: 70 kg BMI (Calculated): 22.9 kg/m?? Intake/Output Summary (Last 24 hours) at 09/27/2023 1107 Last data filed at 09/27/2023 1052 Gross per 24 hour Intake 833 ml Output 3900 ml Net -3067 ml PHYSICAL EXAM Constitutional Appearance: Normal appearance. HENT Mouth/Throat: Mouth: Mucous membranes are dry. Pharynx: Oropharynx is clear. Eyes Extraocular Movements: Extraocular movements intact. Conjunctiva/sclera: Conjunctivae normal. Pupils: Pupils are equal, round, and reactive to light. Abdominal General: Abdomen is flat. Bowel sounds are normal. There is no distension. Palpations: Abdomen is soft. There is no mass. Tenderness: There is no abdominal tenderness. There is no guarding or rebound. Hernia: No hernia is present. Musculoskeletal Right lower leg: No edema. Left lower leg: No edema. Skin General: Skin is warm and dry. Capillary Refill: Capillary refill takes less than 2 seconds. Neurological Mental Status: He is alert. DIAGNOSTICS Labs: Results from last 7 days Lab Units 09/27/23 0553 09/23/23 0555 09/22/23 0705 09/21/23 0643 SODIUM mmol/L 135 < > 138 135 CHLORIDE mmol/L 99 < > 98 95* CREATININE mg/dL 0.76 < > 0.74 0.79 ESTIMATED GFR EGFR mL/min/BSA >90 < > >90 >90 BUN mg/dL 34* < > 29* 25* GLUCOSE S mg/dL 116 < > 197* 291* CALCIUM mg/dL 8.6* < > 8.4* 8.3* MAGNESIUM mg/dL -- -- -- 1.8 PHOSPHORUS INORGANIC mg/dL -- -- -- 3.2 ALBUMIN g/dL -- -- 2.8* -- BILIRUBIN TOTAL mg/dL -- -- <0.2 -- ALK PHOS U/L -- -- 241* -- ALT U/L -- -- 24 -- AST U/L -- -- 32 -- < > = values in this interval not displayed. Radiology: @[id number]@ Swallow Assessment: No data to display ASSESSMENT / PLAN #1 Obstruction Intestinal (HCC) Mr. Lau is a 72 y.o. male who has medical history significant for DLBCL status post rituximab now receiving ongoing Preston-R-CHP (currently held due to anemia), HTN, HLD, prior CVA, gout, history thyroid cancer status post thyroidectomy. He presented for abdominal pain, nausea, and vomiting and ad mitted for recurrence of duodenal obstruction, likely due to stricture. He is experienced significant malnutrition with over 20% weight loss over the past year, including a significant muscle mass component. The patient was agreeable to percutaneous TGJ placement, which is planned for today after which we will resume his previous new trend supplementation. ASSESSMENT Nutrition Needs: Height: 175 cm Admission Weight: 73.3 kg (09/14/2023) Current Weight: 70 kg BMI (Calculated): 22.9 kg/m?? Total Calorie Needs: 8146-6663 calories/day Method to Estimate Energy Needs: kcal/kg ( ) Weight Used for Equation Calculations: 73.3 kg Total Protein Needs: 88 - 110 grams/day Method to Estimate Protein Needs (g/kg): 1.2 - 1.5 gm/kg Weight Used to Calculate Protein Needs (Kg): 73.3 kg Severe Malnutrition The patient meets the ASPEN Criteria of malnutrition based on: Energy Intake: No Change Interpretation of Weight Loss: greater than 20% 1 year Body Fat: Severe Loss Muscle Mass: Severe Loss This is in the context of Chronic Illness. Malnutrition Present Upon Admission: Yes Agree with Registered Dietitian's assessment and treatment plan: Interventions: Enteral nutrition, Collaboration and referral of nutrition care, Provide education to increase nutrition knowledge, Provide counseling strategies to apply nutrition knowledge, Discharge and transfer of nutrition care Current Enteral Nutrition: NPO Plan/Recommendations: Scheduled for TGJ placement today Plan to resume Nutren supplementation at previous rate via TGJ Continue to monitor daily electrolytes including Mag, Phos, Calcium Please call NSS pager at [phone] at [facility] or [phone] at [facility] with any additional questions. BILLING/CODING Total visit 45 minutes Ricardo Stahl (Jay) [facility] PGY1 Pager: [phone] 09/27/23 GER VIDEO * Jayjay Joyce O.T., O.T.D. - 09/27/2023 9:30 AM CST Occupational Therapy [facility] Inpatient Treatment SUBJECTIVE Patient's Name: Hola Lau Referring/Attending Provider: Taina Mclaughlin M.B.B.S. Reason for Referral: Occupational Therapy Evaluation and Treatment History of Present Illness: Hola Lau is a 72 y.o. male who was admitted to [facility] in [place] on 09/14/2023 for Leukopenia [D72.819] Neutropenia (HCC) [D70.9] Obstruction Intestinal (HCC) [K56.609]. Precautions Other Precautions: right foot drop - use shoes and ankle foot orthosis, fall risk Pain Assessment: Pain not reported during session. Subjective Comments: Agreeable to therapy session. OBJECTIVE Vital Signs: Vitals monitored throughout session; within normal ranges. Outcome Measures: AM-PAC Inpatient Short Form: Interpretation: Based on scoring guidelines using the raw score value: Those going to home had an average score at or above 18 Those going to facility had an average score at or below 17 Clinicians answer the -PAC Inpatient Short Form based on observed patient activity and/or clinical judgement (ie. patient can be scored without physically performing each activity) Therapeutic Interventions: Met with Mr. Lau in his hospital room. He did not wish to engage in any out of bed activity in light of his upcoming surgical procedure later in the morning but was open to some brief education and discussion. We reviewed his hospital course progress over the course of the last two weeks. Systematically discuss areas of occupation and how he felt he was progressing. No major concerns identified. Has been basically completing his self-cares on his own, with occasional help from family and nursing. Has been ambulating in his room and hallway with stand by assist only. Able to don and doff his socks/shoes and AFO without assist. Stated his energy level is down compared to normal but improvi ng. He thought he could still work on his dynamic balance and overall endurance. We reviewed discharge plans and remaining OT goals and intervention areas. Cognition: No observable concerns with cognition at this time Patient was left in bed at end of session with call light in reach, all needs met and questions answered. Assessment Discharge Therapy Needs - OT: No further skilled therapy Clinical Impression: Mr. Lau continues to do quite well from a functional standpoint. Has made good progress over the course of the week and is only needing some minor assistance with his daily tasks. He has mildly limited activity tolerance and endurance but nothing that would be prohibitive from a safety perspective. Care team has been exploring some post-discharge options. From a therapy standpoint, I think Mr. Lau has progressed to the point where he could safely discharge directly home with family assist and sub-acute rehabilitation would not provide much value for him. Of course, there may be other considerations for pursuit of placement as well which need to be considered. Would benefit from continued skilled OT intervention to address remaining deficits in ADLs, mobility and to assist with discharge planning. Plan OT Plan Comments: Next session: dynamic standing activity (standing grooming); toileting (commode vs toilet); lower body dressing; leisure engagement Functional Goals: OT Goal #1: Patient will complete upper and lower body dressing with modified independence to decrease dependence on caregiver. OT Goal #1 Status: Achieved OT Goal #2: Patient will complete toileting and toilet hygiene with modified independence to decrease dependence on caregiver. OT Goal #2 Status: Progressing OT Goal #3: Patient will tolerate 7+ minutes dynamic standing balance with supervision to modified independence to allow for grooming at the sink to decrease dependence on caregiver. OT Goal #3 Status: Progressing Progress: Progressing toward goals Rehab potential: Mr. Lau has excellent potential to achieve established occupational therapy goals within the time frame outlined below. OT Frequency: OT Amount: 1 visit per day OT Frequency: 3 times per week OT Inpatient Duration : Until goals are met or hospital discharge OT - Next Inpatient Appointment: 09/30/23 Plan: Alter current plan (reduce frequency given progress and activity level with nursing) Treatment interventions may include: Treatment Interventions: Therapeutic exercise, Therapeutic functional activity, Self-care/home management, Neuromuscular re-education, Cognitive skills training Occupational Therapy Attestation Statement: Patient agrees with the plan of care and goals. Billing: Time Spent with Patient Therapeutic Interventions Home Management Training (min): 10 min Time Tracking Total Timed Units (min): 10 min Total Treatment Time (min): 10 min Gianni Joyce O.T., O.TBeny GER VIDEO * Renee Mancilla M.D. - 09/27/2023 6:52 AM CST HEMATOLOGY 3 SERVICE No care master steam yacht to display Mr. Hola Lau is a 72 y.o. 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 He presented to the hospital for abdominal pain, nausea and 5 episodes of emesis with CT evidence of recurrent duodenal obstruction in the 3rd segment of duodenum at the area of known lymphomatous involvement with no perforation. SUBJECTIVE No events overnight. Tolerating soft diet well No nausea or abdominal pain OBJECTIVE VITAL SIGNS Temperature: [36.2 ??C-36.8 ??C] 36.5 ??C Resp Rate: [15-16] 15 Blood Pressure: (124-142)/(68-79) 131/79 SpO2: [96 %-98 %] 96 % Weight: [70 kg] 70 kg BMI (Calculated): [22.9 kg/m??] 22.9 kg/m?? Pulse Rate: [67-101] 101 PHYSICAL EXAM General: Well appearing, no acute distress. HEENT: NC/AT. No scleral icterus. NJT in place. Cardiac: RRR with soft systolic ejection murmur. Pulmonary: CTAB Abdomen: Soft, nondistended. Nontender. Skin: On the feet there are ulcerations on the right great toe and the left toe that are covered with bandages without strikethrough Extremities: Warm and well perfused. No lower extremity edema. ASSESSMENT / PLAN Mr. Hola Lau is a 72 y.o. 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 He was due for the 6th cycle on 09/03, which was postponed due to cytopenia. At this point, there is no plan to receive the 6th cycle, rather to refer patient for surgical evaluation given his duodenal stricture. 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 Ultimately he will need surgical intervention for this stricture. Until then, he will require a tube for feeding and venting that bypasses this stricture whether that is an NJ tube or a PEG J. He wishes to proceed with a PEG-J which is scheduled for 09/27. Nutrition team on board for tube feed plansfor discharge # Hyperkalemia Likely in the setting of tube feeds and increased oral intake. - gave 1g Ca gluconate and 20mg lasix with 500cc LR with decrease to 5.6 this AM - Additional 500cc bolus 09/27. Repeat EKG with normal T waves (does not meet definition of peaked Twaves) # Duodenal obstruction 2/2 stricture s/p NJ tube placement # Double expressor germinal center DLBCL on treatment with Preston-R-CHP # Constipation Nutrition following, currently on NJ feeds and full liquid diet. PEG-J placement 09/27 Tube feeds per NTR Appreciate Surgery consultation: Consultation in November with PEG-J in interim. Will need to go through acute rehab and nutritional optimization prior to surgery # Prior CVA # R-sided weakness, no acute stroke # HTN # HLD # Hx thyroid cancer s/p thyroidectomy # Gout # R knee effusion # T2DM Consult rheumatology, appreciate recs. Performed arthrocentesis and therapeutic injection on 09/20 of R knee. MSU crystal present to confirm gout. Consider 2 days of prednisone 20 mg if pain returns Hold metformin, Jardiance Continue basal insulin glargine 4 units nightly with 2 units aspart pre meal TID Continue home meds through NJ tube: ASA 81mg daily Simvastatin 20mg daily Allopurinol 300mg daily Elavil 12.5mg prn (used for peripheral neuropathy) Synthroid # Normocytic anemia # Neutropenia, resolved Normocytic anemia has improved since last cycle of chemotherapy. Continue prophylactic acyclovir # Urinary retention (resolved) has been an issue since spine surgery (10/23/2019) Continue Flomax Current Activity/Mobility: BMAT Level 4 (Able to stand and walk; needs staff assist if fall risk factors identified) Fall Injury Prevention: I have discussed My Plan for Safe Activity with the patient. Diet: NPO Tubes/lines: PIV VTE prophylaxis: enoxaparin Disposition: Acute rehab Stable to discharge criteria (not met): Tests/procedures/consults Severe Malnutrition The patient meets the ASPEN Criteria of malnutrition based on: Energy Intake: No Change Interpretation of Weight Loss: greater than 20% 1 year Body Fat: Severe Loss Muscle Mass: Severe Loss This is in the context of Chronic Illness. Malnutrition Present Upon Admission: Yes Agree with Registered Dietitian's assessment and treatment plan: Interventions: Enteral nutrition, Collaboration and referral of nutrition care, Provide education to increase nutrition knowledge, Provide counseling strategies to apply nutrition knowledge, Discharge and transfer of nutrition care Plan discussed with Hematology 3 Food Beverage Server who was present during the duncan portions of the evaluation today. [place] page [place] Hematology 3 [place] [phone] with any questions. GER VIDEO * Coco Jimenez Pharm.D., R.Ph. - 09/26/2023 2:47 PM CST Pharmacist Progress Note 72 y.o. male with DLBCL admitted for abdominal pain. PMH: T2DM, CKD stage 2, TIA (2002), gout, hypertension, and hyperlipidemia , CONNIE on CPAP, arthritis OBJECTIVE Home medications Held: metformin, empagliflozin, amitriptyline VTE prophylaxis: lovenox GI prophylaxis: none Antimicrobial prophylaxis: Acyclovir Hem/Onc History, Therapy Summary # DLBCL (dx 05/14/2023) 05/2023 Methylprednisolone, Rituximab 05/21/2023-08/2023: Preston-R-CHP 08/12/23: C5D1 C6 postponed for anemia ASSESSMENT / PLAN #Duodenal obstruction 09/17: EGD with NJ tube placed; biopsies negative for malignancy NG tube, plan for J-PEG Meds changed to be given via tube #Hyperkalemia K 6 (09/26) suspected d/t tube feeds Avoid potassium containing medications/infusions #Facial droop, R sided weakness Unclear if acute vs long standing CTa head and neck negative for hemorrhage or large vessel occlusion MRI brain planned 09/20 #Knee pain Rheumatology consulted and performed aspiration of R knee 09/20/23. Continue captain assistant allopurinol for gout Changes to medications anticipated at discharge: New: tamsulosin Changes: TBD Discontinue: TBD Rx approval pending: none Dispo: TBD Coco Jimenez Pharm.D., R.Ph. The recommendations contained in this note are based on information available at the time of documentation and may not reflect changes in the care plan discussed after the time of signing. GER VIDEO * Dayday Gómez R.N., CRRN - 09/26/2023 12:44 PM CST Received a consult to assess Mr. Lau for inpatient rehab on 4-Generose. I reviewed medical and therapy documentation and discussed the patient with therapy. Mr. Lau is not a candidate for 4-Generose as he does not have enough therapy goals. Of note, I did not continue to assess additional IRF criteria. Discussed with primary service. GER VIDEO * Taina Mclaughlin M.B.B.SJohanna - 09/26/2023 12:18 PM CST Supervisory Note for Hematology 3 Service I saw and evaluated the patient, participating in the duncan portions of the service. I reviewed the resident/fellow???s note. I agree with the resident/fellow???s findings and plan. Hematological history: 72 y.o. 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 He presented to the hospital for abdominal pain, nausea and 5 episodes of emesis with CT evidence of recurrent duodenal obstruction inthe 3rd segment of duodenum at the area of known lymphomatous involvement with no perforation. SUBJECTIVE Patient was seen this morning with the team. Overnight no new events. Feels well this am. Passed the clamping trial. Diet was advanced and the patient is tolerating it well so far. OBJECTIVE Vitals: 09/26/23 1200 BP: 140/68 Pulse: 89 Resp: 16 Temp: 36.6 ??C SpO2: 98% General: Appears comfortable, stated age, no acute distress. HEENT: no oral lesions, moist mucus membranes Recent Results (from the past 24 hour(s)) Glucose, POCT Collection Time: 09/25/23 5:32 PM Result Value Glucose, POCT, B 104 Site Capillary Last Intake 1-2 hours Glucose, POCT Collection Time: 09/25/23 8:06 PM Result Value Glucose, POCT, B 148 (H) Site Capillary Last Intake 1-2 hours Basic Metabolic Panel Collection Time: 09/26/23 5:50 AM Result Value Potassium, S 6.0 (Crit H) Sodium, S 136 Chloride, S 98 Bicarbonate, S 28 Anion Gap 10 BUN (Blood Urea Nitrogen), S 33 (H) Creatinine 0.67 (L) Estimated GFR (eGFR) >90 Calcium, Total, S 8.5 (L) Glucose, S 102 CBC with Differential, Blood Collection Time: 09/26/23 5:50 AM Result Value Hemoglobin 9.4 (L) Hematocrit 29.2 (L) Erythrocytes 3.17 (L) MCV 92.1 RBC Distrib Width 16.2 (H) Platelet Count 240 Leukocytes 7.6 Neutrophils 6.52 (H) Lymphocytes 0.39 (L) Monocytes 0.48 Eosinophils 0.22 Basophils <0.03 Glucose, POCT Collection Time: 09/26/23 12:01 PM Result Value Glucose, POCT, B 169 (H) Site Capillary Med list reviewed. 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 Post 5 cycles of polatuzumab [id number] Last PET scan on 08/09/2023 showed near CR. With this duodenal obstruction, patient underwent upperEGD with biopsies which were negative for any lymphoma involvement. This is likely a sequelae post treatment that he is experiencing obstruction Continue NJ tube support with tube feeding. Confirmed with surgery about discharge recommendations based on outcomes of the trial. Plan for PEJ placement with GI Patient will likely need surgical correction which is currently being coordinated outpatient after nutritional optimization. No further chemotherapy planned at this time Patient will have outpatient follow-up with the primary lymphoma team after hospital discharge. Right Knee effusion Pain infusion improved after therapeutic injection on 09/12/2023. Monosodium urate crystals presentconfirmed gout. Pancytopenia the setting of chemotherapy Cycle 6 was delayed in the setting of delayed count recovery. Counts are improving now 6 at this time. Patient not neutropenic anymore will discontinue fluconazole and levofloxacin will continue acyclovir for now Rest as per resident's note Deyanira Mercedes. 09/26/23 GER VIDEO * Macie Thakkar P.T., D.P.TJohanna - 09/26/2023 11:44 AM CST 09/26/23 1144 Reason Therapy Missed Reason Therapy Missed Medical hold Patient with hyperkalemia of 6 with electrocardiogram changes. Not currently appropriate to progress mobility with physical therapy. Will follow up as patient is medically appropriate, willing, and available. GER VIDEO * Sarah Reardon M.D. - 09/26/2023 10:04 AM CST Images from the original note were not included. 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 Hola Lau is a 72 y.o. 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 He presented to the hospital for abdominal pain, nausea and 5 episodes of emesis with CT evidence of recurrent duodenal obstruction in the 3rd segment of duodenum at the area of known lymphomatous involvement with no perforation. SUBJECTIVE No events overnight. Tolerating soft diet well No nausea or abdominal pain, residual was 150cc after clamping trial Working well with PT OBJECTIVE VITAL SIGNS Temperature: [36.2 ??C-36.8 ??C] 36.2 ??C Resp Rate: [14-16] 16 Blood Pressure: (125-143)/(61-80) 142/71 SpO2: [95 %-100 %] 98 % Weight: [71.7 kg] 71.7 kg BMI (Calculated): [23.4 kg/m??] 23.4 kg/m?? Pulse Rate: [67-91] 67 PHYSICAL EXAM General: Well appearing, no acute distress. HEENT: NC/AT. No scleral icterus. NJT in place. Cardiac: RRR with soft systolic ejection murmur. Pulmonary: CTAB Abdomen: Soft, nondistended. Nontender. Skin: No acute rashes. On the feet there are ulcerations on the right great toe and the left foot that are nontender without purulence, tenderness or fluctuance Extremities: Warm and well perfused. No lower extremity edema. ASSESSMENT / PLAN Mr. Hola Lau is a 72 y.o. 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 He was due for the 6th cycle on 09/03, which was postponed due to cytopenia. At this point, there is no plan to receive the 6th cycle, rather to refer patient for surgical evaluation given his duodenal stricture. 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 Ultimately he will need surgical intervention for this stricture. Until then, he will require a tube for feeding and venting that bypasses this stricture whether that is an NJ tube or a PEG J. He wishes to proceed with a PEG-J and nutrition is evaluating him for this. They will also determine if heneeds tube feeds going forward given improvement in oral intake with minimal residual from the G port. # Hyperkalemia Likely in the setting of tube feeds and increased oral intake. - EKG with peaked T waves, gave 1g Ca gluconate and 20mg lasix with 500cc LR - recheck at 1PM - slowed tube feeds until official NTR recs given # Duodenal obstruction 2/2 stricture s/p NJ tube placement # Double expressor germinal center DLBCL on treatment with Preston-R-CHP # Constipation Nutrition following, currently on NJ feeds and full liquid diet. Evaluating for PEG J. Will place order for placement once nutrition has completed evaluation Tube feeds per NTR, will slow for now given hyperkalemia Appreciate Surgery consultation: Consultation in November with PEG-J in interim. Will need to go through acute rehab and nutritional optimization prior to surgery # Prior CVA # R-sided weakness, no acute stroke # HTN # HLD # Hx thyroid cancer s/p thyroidectomy # Gout # R knee effusion # T2DM Consult rheumatology, appreciate recs. Performed arthrocentesis and therapeutic injection on 09/20 of R knee. MSU crystal present to confirm gout. Consider 2 days of prednisone 20 mg if pain returns Hold metformin, Jardiance Continue basal insulin glargine 4 units nightly with 2 units aspart pre meal TID Continue home meds through NJ tube: ASA 81mg daily Simvastatin 20mg daily Allopurinol 300mg daily Elavil 12.5mg prn (used for peripheral neuropathy) Synthroid # Normocytic anemia # Neutropenia, resolved Normocytic anemia has improved since last cycle of chemotherapy. Continue prophylactic acyclovir # Urinary retention (resolved) has been an issue since spine surgery (10/23/2019) Continue Flomax Current Activity/Mobility: BMAT Level 4 (Able to stand and walk; needs staff assist if fall risk factors identified) Fall Injury Prevention: I have discussed My Plan for Safe Activity with the patient. Diet: NPO Tubes/lines: PIV VTE prophylaxis: enoxaparin Disposition: Acute rehab Stable to discharge criteria (not met): Tests/procedures/consults Severe Malnutrition The patient meets the ASPEN Criteria of malnutrition based on: Energy Intake: No Change Interpretation of Weight Loss: greater than 20% 1 year Body Fat: Severe Loss Muscle Mass: Severe Loss This is in the context of Chronic Illness. Malnutrition Present Upon Admission: Yes Agree with Registered Dietitian's assessment and treatment plan: Nutrition Interventions Interventions: Enteral nutrition, Collaboration and referral of nutrition care, Provide education to increase nutrition knowledge, Provide counseling strategies to apply nutrition knowledge, Discharge and transfer of nutrition care Plan discussed with Hematology 3 Food Beverage Server who was present during the duncan portions of the evaluation today. [place] [phone] with any questions. GER VIDEO * Jayjay Joyce O.Francis., O.T.D. - 09/25/2023 1:47 PM CST Occupational Therapy Acute Hospital Inpatient Treatment SUBJECTIVE Patient's Name: Hola Lau Referring/Attending Provider: ArnoldoTaina davies M.B.B.S. Reason for Referral: Occupational Therapy Evaluation and Treatment History of Present Illness: Hola Lau is a 72 y.o. male who was admitted to [facility] in [place] on 09/14/2023 for Leukopenia [D72.819] Neutropenia (HCC) [D70.9] Obstruction Intestinal (HCC) [K56.609]. Precautions Other Precautions: right foot drop - use shoes and ankle foot orthosis, fall risk Pain Assessment: Pain not reported during session. Subjective Comments: Agreeable to therapy session. Family/Caregiver Present: OBJECTIVE Vital Signs: Vitals monitored throughout session; within normal ranges. Outcome Measures: [facility] Inpatient Short Form: Putting on and taking off regular lower body clothing?: None Putting on and taking off regular upper body clothing?: None Taking care of personal grooming such as brushing teeth?: A Little Bathing (including washing, rinsing, drying)?: A Little Toileting, which includes using toilet, bedpan, or urinal?: A Little Eating meals?: None Daily Activities Raw Score (max 24): 21 Daily Activities Standardized Score: 44.27 Interpretation: Based on scoring guidelines using the raw score value: Those going to home had an average score at or above 18 Those going to facility had an average score at or below 17 Clinicians answer the [facility] Inpatient Short Form based on observed patient activity and/or clinical judgement (ie. patient can be scored without physically performing each activity) Therapeutic Interventions: ACTIVITIES OF DAILY LIVING: Lower body dressing - Assist Level: Modified Independent - Assist Comments: able to doff hospital socks, don regular socks, AFO and shoes without assistanceor cueing - Patient Location: seated in chair - Therapist Delivery: assessed, instructed, assisted, and facilitated - Cues: none FUNCTIONAL TRANSFERS: Activity type: pivot transfer to chair functional ambulation in room - Assistance: Contact guard assist trunk - Assistance Comments: hands on gait belt - Equipment: Front Wheeled Walker - Cueing: Technique and Sequencing THERAPEUTIC ACTIVITY - Position: standing - Assist Level: Contact guard assist trunk - Duration: 5 minutes - Activity: functional reaching and downward reaching - Cueing: Technique and Sequencing Cognition: No observable concerns with cognition at this time Patient Disposition at the end of Treatment: Patient was left in bedside chair at end of session with call light in reach, all needs met and questions answered. Assessment Discharge Therapy Needs - OT: Ongoing skilled occupational therapy Clinical Impression: Mr. Lau is making incremental progress toward his functional goals. Has now progressed to wherehe can complete most daily self-cares without assistance or cueing. Has been progressing with his transfers and ambulation as well, although he continues to require some cueing and close guidance. Spent some time discussing discharge plans with Mr. Lau and his today. Care team has been pursuing short-term rehabilitation options. Given his progress over the past few days, I think we are getting close to the point where it would be reasonable for them to discharge directly home and continue with therapy on a home-health or outpatient basis. I think for now he does have continued goals to be addressed and if family wanted to pursue rehabilitation for strengthening given his looming surgical intervention. We will continue evaluate this following each session. Would benefit from continued skilled OT intervention to address remaining deficits in ADLs, mobility and to assist with discharge planning. Plan OT Plan Comments: Next session: dynamic standing activity (standing grooming); toileting (commode vs toilet); lower body dressing; leisure engagement Functional Goals: OT Goal #1: Patient will complete upper and lower body dressing with modified independence to decrease dependence on caregiver. OT Goal #1 Status: Achieved OT Goal #2: Patient will complete toileting and toilet hygiene with modified independence to decrease dependence on caregiver. OT Goal #2 Status: Progressing OT Goal #3: Patient will tolerate 7+ minutes dynamic standing balance with supervision to modified independence to allow for grooming at the sink to decrease dependence on caregiver. OT Goal #3 Status: Progressing Progress: Progressing toward goals Rehab potential: Mr. Lau has good potential to achieve established occupational therapy goals within the time frame outlined below. OT Frequency: OT Amount: 1 visit per day OT Frequency: 5 times per week OT Inpatient Duration : Until goals are met or hospital discharge OT - Next Inpatient Appointment: 09/26/23 Plan: Continue with current plan Treatment interventions may include: Treatment Interventions: Therapeutic exercise, Therapeutic functional activity, Self-care/home management, Neuromuscular re-education, Cognitive skills training Occupational Therapy Attestation Statement: Patient agrees with the plan of care and goals. Billing: Time Spent with Patient Therapeutic Interventions Home Management Training (min): 20 min Time Tracking Total Timed Units (min): 20 min Total Treatment Time (min): 20 min Gianni Joyce O.T., O.TTrista. GER VIDEO * Taina Mclaughlin M.B.B.S. - 09/25/2023 12:57 PM CST Supervisory Note for Hematology 3 Service I saw and evaluated the patient, participating in the duncan portions of the service. I reviewed the resident/fellow???s note. I agree with the resident/fellow???s findings and plan. Hematological history: 72 y.o. 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 He presented to the hospital for abdominal pain, nausea and 5 episodes of emesis with CT evidence of recurrent duodenal obstruction inthe 3rd segment of duodenum at the area of known lymphomatous involvement with no perforation. SUBJECTIVE Patient was seen this morning with the team. Overnight no new events. Tolerating G port clamping well. Tolerating diet so far OBJECTIVE Vitals: 09/25/23 0820 BP: 126/68 Pulse: 89 Resp: 14 Temp: 36.4 ??C SpO2: 98% General: Appears comfortable, stated age, no acute distress. HEENT: no oral lesions, moist mucus membranes Recent Results (from the past 24 hour(s)) Glucose, POCT Collection Time: 09/24/23 4:51 PM Result Value Glucose, POCT, B 198 (H) Site Capillary Last Intake 2-3 hours Glucose, POCT Collection Time: 09/24/23 9:04 PM Result Value Glucose, POCT, B 201 (H) Site Capillary Last Intake 2-3 hours Basic Metabolic Panel Collection Time: 09/25/23 7:41 AM Result Value Potassium, S 5.6 (H) Sodium, S 134 (L) Chloride, S 97 (L) Bicarbonate, S 29 Anion Gap 8 BUN (Blood Urea Nitrogen), S 34 (H) Creatinine 0.68 (L) Estimated GFR (eGFR) >90 Calcium, Total, S 8.7 (L) Glucose, S 104 CBC with Differential, Blood Collection Time: 09/25/23 7:41 AM Result Value Hemoglobin 9.9 (L) Hematocrit 30.3 (L) Erythrocytes 3.25 (L) MCV 93.2 RBC Distrib Width 16.5 (H) Platelet Count 269 Leukocytes 7.5 Neutrophils 6.40 Lymphocytes 0.40 (L) Monocytes 0.56 Eosinophils 0.14 Basophils <0.03 Glucose, POCT Collection Time: 09/25/23 7:47 AM Result Value Glucose, POCT, B 112 Site Capillary Last Intake > 4 hours Glucose, POCT Collection Time: 09/25/23 11:12 AM Result Value Glucose, POCT, B 193 (H) Site Capillary Last Intake <1 hour Med list reviewed. 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 Post 5 cycles of polatuzumab [id number] Last PET scan on 08/09/2023 showed near CR. With this duodenal obstruction, patient underwent upperEGD with biopsies which were negative for any lymphoma involvement. This is likely a sequelae post treatment that he is experiencing obstruction Continue NJ tube support with tube feeding. Continue with G port clamping trial. Will need to confirm with surgery about discharge recommendations based on outcomes of the trial. Patient will likely need surgical correction which is currently being coordinated outpatient. No further chemotherapy planned at this time Patient will have outpatient follow-up with the primary lymphoma team after hospital discharge. Right Knee effusion Pain infusion improved after therapeutic injection on 09/12/2023. Monosodium urate crystals presentconfirmed gout. Pancytopenia the setting of chemotherapy Cycle 6 was delayed in the setting of delayed count recovery. Counts are improving now 6 at this time. Patient not neutropenic anymore will discontinue fluconazole and levofloxacin will continue acyclovir for now Rest as per resident's note Aubrey MercedesB.S. 09/25/23 GER VIDEO * Sarah Reardon M.D. - 09/25/2023 11:36 AM CST Images from the original note were not included. 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 Hola Lau is a 72 y.o. 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 He presented to the hospital for abdominal pain, nausea and 5 episodes of emesis with CT evidence of recurrent duodenal obstruction in the 3rd segment of duodenum at the area of known lymphomatous involvement with no perforation. SUBJECTIVE No events overnight. Tolerating blended diet well No nausea or abdominal pain Working well with PT OBJECTIVE VITAL SIGNS Temperature: [36.4 ??C-37 ??C] 36.4 ??C Resp Rate: [14-16] 14 Blood Pressure: (121-146)/(66-80) 126/68 SpO2: [96 %-98 %] 98 % Weight: [68.1 kg] 68.1 kg BMI (Calculated): [22.2 kg/m??] 22.2 kg/m?? Pulse Rate: [89-109] 89 PHYSICAL EXAM General: Well appearing, no acute distress. HEENT: NC/AT. No scleral icterus. NJT in place. Cardiac: RRR with soft systolic ejection murmur. Pulmonary: CTAB Abdomen: Soft, nondistended. Nontender. Skin: No acute rashes. On the feet there are ulcerations on the right great toe and the left foot that are nontender without purulence, tenderness or fluctuance Extremities: Warm and well perfused. No lower extremity edema. ASSESSMENT / PLAN Mr. Hola Lau is a 72 y.o. 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 He was due for the 6th cycle on 09/03, which was postponed due to cytopenia. At this point, there is no plan to receive the 6th cycle, rather to refer patient for surgical evaluation given his duodenal stricture. 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 Ultimately he will need surgical intervention for this stricture. Until then, he will likely require tube feeding that bypasses this stricture whether that is an NJ tube or a PEG J. In the interim, we are performing a clamp trial of the G port of his current NG while he eats soft oral foods. We do not feel he will fare well in the outpatient setting without in NJ or a PEG J tube as he will likelyre-obstruct. General surgery has evaluated the patient on admission and they are planning for surgical evaluation in November. He has experienced a significant functional decline and he and his partner do not feel returning home would be an option for them. We are having difficulty finding an acute rehab facility that will take him with an NJ tube and we are hesitant to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 prophylactic sacral Mepilex?? border dressing to cover the coccyx/sacral area. Ensure the dressing is in full contact with the skin to prevent moisture- related skin breakdown. Lift twice daily to assess when used for prevention. Change every 3 days and PRN. Recommended interventions for moisture control: Utilize the breathable incontinence underpads while in bed. Adult briefs should only be worn while ambulating or in the chair. Cleanse with foaming cleanser or wipes after each incontinence episode. Consult recommendations: NA Education: Discussed the plan of care with the patient and nursing. They agree to the plan. The WOC RN will continue to see the patient, contact or reconsult for worsening wounds or new wounds. Electronically signed by: Jaquan Monroy R.N. 09/24/23 11:43 AM MANAGER VIDEO GER VIDEO * Macie Thakkar, P.Jany, D.P.T. - 09/24/2023 9:36 AM CST Physical Therapy Inpatient Treatment SUBJECTIVE Patient's Name: Hola Lau Referring/Attending Provider: Taina Mclaughlin M.B.B.S. Medical Diagnosis: Leukopenia [D72.819] Neutropenia (HCC) [D70.9] Obstruction Intestinal (HCC) [K56.609] Reason for Referral: PT Evaluate and Treat History of Present Illness: Hola Lau is a 72 y.o. male who was admitted to [facility] in [place] on 09/14/2023 for Leukopenia [D72.819] Neutropenia (HCC) [D70.9] Obstruction Intestinal ([facility]) [K56.609] Precautions Other Precautions: right foot drop - use shoes and ankle foot orthosis; midline disorientation - retropulsive, fall risk Pain Assessment: Pain not reported during session. Patient/Caregiver Goals: Discharge to a rehab facility, then to home when stronger Subjective Comments: Denzel was greeted while sitting in the chair and was agreeable to PT treatment. He and his significant other are in agreement that they want him to be stronger prior to him returning to home. OBJECTIVE Vital Signs Vitals taken during session: heart rate, blood pressure, and oxygen saturation were within safe limits for mobility. No adverse symptoms reported throughout. Outcome Measures: -[facility] Inpatient Short Form: -[facility] Basic Mobility (V.2) How much help from another person do you currently need???If the patient hasn't done an activity recently, how much help from another person do you think he/she would needif he/she tried? 1. Turning from your back to your side while in a flat bed without using bedrails?: None 2. Moving from lying on your back to sitting on the side of a flat bed without using bedrails?: A Little 3. Moving to and from a bed to a chair (including a wheelchair)?: A Little 4. Standing up from a chair using your arms (e.g., wheelchair, or bedside chair)?: A Little 5. To walk in hospital room?: A Little 6. Climbing 3-5 steps with a railing?: A Lot -[facility] Basic Mobility (V.2) Raw Score: 18 -[facility] Basic Mobility (V.2) Standardized Score: 41.05 Interpretation: Based on scoring guidelines using the raw score value: Those going to home had an average score at or above 18 Those going to facility had an average score at or below 17 Clinicians answer the -[facility] Inpatient Short Form based on observed patient activity and/or clinical judgement (ie. patient can be scored without physically performing each activity) Therapeutic Interventions: SUPINE TO SIT: Assistance Level: Modified Independent Device: head of bed elevated and bedrail Assistance/Cueing: no cueing required. Patient completes with use of hospital bed features. Anticipate that he would be able to complete from a flat bed, although unable to assess secondary to tube feeds running. Delivery: assessed SIT TO STAND: Assistance Level: Contact Guard Assistance of 1 Device: gait belt and front wheeled walker Surface: Bed Assistance/Cueing: verbal for nose over toes for improved anterior trunk lean. No evidence of retropulsion noted with stand this date. Delivery: educated, instructed, and assessed STAND TO SIT: Assistance Level: Contact Guard Assistance of 1 Device: gait belt and front wheeled walker Surface: Chair Assistance/Cueing: Excellent carryover of cues for nose over toes with excellent eccentric control. Also had appropriate carryover of cueing for hand placement. Educated him to bring the walker allthe way back to his sitting surface prior to initiating sitting next stand to sit. Delivery: educated, instructed, and assessed Comments: Rhona was educated on how to provide contact guard assistance with stand to sit transfer. She demonstrated good carryover of education. GAIT: Distance: 60 meters Contact Guard Assistance of 1 Device: gait belt and front wheeled walker Quality: Shuffled gait pattern initially - improved with cues, forward flexed posture with tendencyto keep the walker too far anteriorly - slightly improved with cueing although he would revert backwithout continual cueing Assistance/Cueing:verbal for proximity to walker, upright posture, and improved heel strike for improved foot clearance Comments: Rhona was educated on how to provide contact guard assistance with ambulation. She demonstrated good carryover of education. Education : Increased goal for 5 walks per day with a focus on increased frequency rather than distance, plan of care The patient's status was discussed and the following coordination of care occurred with the: excel analyst/Caregiver OT Care Management Family/Caregiver Present: Rhona Patient Disposition at the end of Treatment: Patient was left in bedside chair at end of session with call light in reach, all needs met and questions answered. Assessment Discharge Therapy Needs - PT: Ongoing skilled physical therapy Skilled therapy can include physical therapy provided by home health, outpatient clinic, or a post-acute facility. The location of these services is determined by the patient's care team in partnership with patient/family. Level of Care Needed - PT: Assistance with transfers (Comment), Assistance with walking and moving around the home, Assistance with bed mobility Equipment Recommended - PT: Other (Comment) (Will continue to assess/to be assessed by next facility) Barriers to Discharge Home: Current functional status, Fall risk, Safety concerns From a physical therapy perspective, the level of care above has been recommended for Mr. Lau after hospital discharge. This level of care is based on his functional abilities during today's session. This may change throughout the hospital course and will be updated as appropriate. Clinical Impression: Denzel tolerated the session well with no adverse symptoms reported throughout. He demonstrates improved activity tolerance as he was able to ambulate 60 m with use of a front wheeled walker and contactguard assistance. He also did not demonstrate retropulsion in standing today which is an improvement from yesterday. PT began long term care phlebotomist education and Rhona was educated on how to assist with transfers and ambulation. Denzel and Rhona are in agreement that they would want Denzel to get stronger priorto discharge to home per their reports. Despite excellent progress, patient continues to be below his functional baseline and would benefit from inpatient physical therapy to facilitate increased safety and independence with functional mobility. Activity goals discussed with Patient or Family: Recommendations for mobility/activity while hospitalized: - Seated lower extremity exercises - 5 walks per day with nursing staff - Sit in chair at least 3 times per day Rehab potential: Mr. Lau has Good potential to achieve established physical therapy goals within the time frame outlined below. Progress: Progressing toward goals Functional Goals: PT Inpatient Goals PT Goal #1: Patient will be able to complete bed mobility independently to demonstrate improved functional independence by discharge PT Goal #1 Status: Progressing PT Goal #2: Patient will be able to complete transfers with modified independence and use of front wheeled walker to demonstrate improved functional independence by discharge PT Goal #2 Status: Progressing PT Goal #3: Patient will be able to ambulate 35 m with use of front wheeled walker and modified independence to demonstrate improved functional independence with ambulating household distances by discharge PT Goal #3 Status: Progressing Plan Treatment Plan: Plan: Continue with current plan PT Amount: 1 visit per day PT Frequency: 5 times per week PT Inpatient Duration : Until goals are met or hospital discharge Requires Inpatient Follow-Up: Yes PT - Next Inpatient Appointment: 09/25/23 PT Plan Comments: Progress bed mobility, transfers, and ambulation with use of front wheeled walker; trial four wheeled walker (patient owns); balance retraining with a focus on mildine orientation; lower extremity functional strengthening - progress to standing exercises Treatment interventions may include: Treatment/Interventions: Therapeutic exercise, Therapeutic functional activity, Neuromuscular re-education, Gait training Billing: Time Spent with Patient Therapeutic Interventions Therapeutic Activity (min): 26 min Time Tracking Total Timed Units (min): 26 min Total Treatment Time (min): 26 min Macie Thakkar P.T., D.P.T. GER VIDEO * Coco Jimenez Pharm.D., R.Ph. - 09/23/2023 1:56 PM CST Pharmacist Progress Note 72 y.o. male with DLBCL admitted for abdominal pain. PMH: T2DM, CKD stage 2, TIA (2002), gout, hypertension, and hyperlipidemia , CONNIE on CPAP, arthritis OBJECTIVE Home medications Held: metformin, empagliflozin, amitriptyline VTE prophylaxis: lovenox GI prophylaxis: none Antimicrobial prophylaxis: Acyclovir Hem/Onc History, Therapy Summary # DLBCL (dx 05/14/2023) 05/2023 Methylprednisolone, Rituximab 05/21/2023-08/2023: Preston-R-CHP 08/12/23: C5D1 C6 postponed for anemia ASSESSMENT / PLAN #Duodenal obstruction NG tube 09/17: EGD with NJ tube placed; biopsies negative for malignancy Meds changed to be given via tube #Facial droop, R sided weakness Unclear if acute vs long standing CTa head and neck negative for hemorrhage or large vessel occlusion MRI brain planned 09/20 #Knee pain Rheumatology consulted and performed aspiration of R knee 09/20/23. Continue captain assistant allopurinol for gout Changes to medications anticipated at discharge: New: tamsulosin Changes: TBD Discontinue: TBD Rx approval pending: none Dispo: TBD Coco Jimenez PharmBeny, R.Ph. The recommendations contained in this note are based on information available at the time of documentation and may not reflect changes in the care plan discussed after the time of signing. GER VIDEO * Nandini Westfall M.S.N., R.N. - 09/23/2023 12:39 PM CST SUBJECTIVE Unit case packer continues to follow while hospitalized to assist with discharge planning coordination, connection to resources and supportive counseling as appropriate. A discharge planning assessment was completed on 09/15/23 by my colleague Archana Bynum R.N., please see her note for full discharge planning assessment details. Upon meeting with Denzel and his significant other, Rhona, case packer introduced self, role within he multidisciplinary care team along with the purpose of today's visit and they both verbalized agreement with further discussions. Denzel and Rhona confirm that prior to admission, Denzel was living with Rhona in a single story home. Rhona helped with meal preparation, cooking, and housekeeping. Denzel indicated that he was independent with his activities of daily living prior to admission and voiced uncertainty that he will be ableto return home at discharge, noting that he is much weaker than his baseline. Denzel and Rhona were open to learning options for ongoing therapy after discharge. We discussed the three settings that therapy can continue, which include short term placement in a facility, home with home health care services or home with outpatient services. Denzel voiced a preference to explore short term placement in afacility. Currently, Denzel is requiring nutritional support through NG tube feedings. We discussed that having an NG tube in place is a barrier for most long term facilities. It was explained that all long term facilities in [place] do not accept NG tubes due to liability risks of it becoming dislodged as it would require a return visit to the hospital for replacement and verifying placement before using again. We did discuss that some facilities [facility] may [facility] tubes, but eachfacility is different. health safety and environment manager recommended exploring [facility]) or swing bed options if the plan is to discharge with the NG tube for nutritional support. Denzel and Rhona voiced a greement with this plan and voiced agreement to having a referral sent to [facility] to assess ability to meet Denzel's ongoing care needs. OBJECTIVE Mr. Hola Lau is a pleasant 72 year old male who was admitted to the hospital on 09/14/2023for management of Leukopenia [D72.819], Neutropenia (HCC) [D70.9], and Obstruction Intestinal (HCC)[K56.609]. He will likely require short term placement at discharge prior to returning home with his significant other, Rhona. Denzel is anticipated to need the following at discharge: NG tube feeds PT/OT The following referral is pending for placement: Continued Care and Services - Admitted Since 09/14/2023 Destination Service Provider Request Status Selected Services Address Phone Fax Patient Preferred [facility] - TCU Pending - Request Sent N/A [id number] [address] [place] [address] [phone] -- ASSESSMENT / PLAN ASSESSMENT Denzel was resting in bed during today's visit with his significant other at his bedside. Both Denzel andRhona were alert, oriented, and actively engaged in today's discussions. They both appear to be planning appropriately at this time for Denzel's ongoing needs at discharge. They both are actively participating in discharge planning coordination. PLAN Unit case packer will continue to follow while hospitalized to assist with discharge planning coordination, connection to resources and supportive counseling as appropriate. Darin Mckeon, R.N. 09/23/23 GER VIDEO * Taina Mclaughlin M.B.B.S. - 09/23/2023 11:56 AM CST Supervisory Note for Hematology 3 Service I saw and evaluated the patient, participating in the duncan portions of the service. I reviewed the resident/fellow???s note. I agree with the resident/fellow???s findings and plan. Hematological history: 72 y.o. 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 He presented to the hospital for abdominal pain, nausea and [address] episodes of emesis with CT evidence of recurrent duodenal obstruction inthe 3rd segment of duodenum at the area of known lymphomatous involvement with no perforation. SUBJECTIVE Patient was seen this morning with the team. Overnight no new events. Remains stable overall. Feeling much better and stronger this morning. Worked with physical therapy. They are hopeful about recovery. OBJECTIVE Vitals: 09/23/23 0730 BP: (!) 131/108 Pulse: 83 Resp: 14 Temp: 36.5 ??C SpO2: 96% General: Appears comfortable, stated age, no acute distress. HEENT: no oral lesions, moist mucus membranes NG-tube in place. Recent Results (from the past 24 hour(s)) Glucose, POCT Collection Time: 09/22/23 12:54 PM Result Value Glucose, POCT, B 256 (H) Site Capillary Last Intake 3-4 hours Glucose, POCT Collection Time: 09/22/23 5:40 PM Result Value Glucose, POCT, B 205 (H) Site Capillary Last Intake 3-4 hours Glucose, POCT Collection Time: 09/22/23 10:19 PM Result Value Glucose, POCT, B 208 (H) Site Capillary Last Intake ContTubFdg Basic Metabolic Panel Collection Time: 09/23/23 5:55 AM Result Value Potassium, S 4.5 Sodium, S 137 Chloride, S 98 Bicarbonate, S 29 Anion Gap 10 BUN (Blood Urea Nitrogen), S 30 (H) Creatinine 0.70 (L) Estimated GFR (eGFR) >90 Calcium, Total, S 8.6 (L) Glucose, S 161 (H) CBC no call back, reflex T/S HGB <8 Collection Time: 09/23/23 5:55 AM Result Value Hemoglobin 9.4 (L) Hematocrit 28.2 (L) Erythrocytes 3.11 (L) MCV 90.7 RBC Distrib Width 16.0 (H) Platelet Count 179 Leukocytes 3.3 (L) Neutrophils 2.75 Lymphocytes 0.23 (L) Monocytes 0.30 Eosinophils <0.03 Basophils <0.03 Glucose, POCT Collection Time: 09/23/23 7:33 AM Result Value Glucose, POCT, B 192 (H) Med list reviewed. 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 Post 5 cycles of polatuzumab [id number] Last PET scan on 08/09/2023 showed near CR. With this duodenal obstruction, patient underwent upperEGD with biopsies which were negative for any lymphoma involvement. This is likely a sequelae post treatment that he is experiencing obstruction Continue NG tube support with tube feeding. Appreciate surgery recommendations. Patient will likely need surgical correction which is currently being coordinated outpatient. No further chemotherapy planned at this time Patient will have outpatient follow-up with the primary lymphoma team after hospital discharge. Right Knee effusion Pain infusion improved after therapeutic injection on 09/12/2023. Monosodium urate crystals presentconfirmed gout. Pancytopenia the setting of chemotherapy Cycle 6 was delayed in the setting of delayed count recovery. Counts are improving now 6 at this time. Patient not neutropenic anymore will discontinue fluconazole and levofloxacin will continue acyclovir for now Rest as per resident's note Deyanira Mercedes. 09/23/23 GER VIDEO * Macie Thakkar PMaicol, D.P.T. - 09/23/2023 9:53 AM CST Physical Therapy Inpatient Treatment SUBJECTIVE Patient's Name: Hola Lau Referring/Attending Provider: Faustino Nuñez M.B.B.S. Medical Diagnosis: Leukopenia [D72.819] Neutropenia (HCC) [D70.9] Obstruction Intestinal (HCC) [K56.609] Reason for Referral: PT Evaluate and Treat History of Present Illness: Hola Lau is a 72 y.o. male who was admitted to [facility] in [place] on 09/14/2023 for Leukopenia [D72.819] Neutropenia (HCC) [D70.9] Obstruction Intestinal (HCC) [K56.609] Precautions Other Precautions: right foot drop - use shoes and ankle foot orthosis; midline disorientation - retropulsive, fall risk Pain Assessment: Pain not reported during session. Patient/Caregiver Goals: Return to prior level of function Subjective Comments: Denzel was greeted while lying in bed and was agreeable to PT treatment. He reports that the wounds on his toes are from a rug burn from a fall. RN reports that RN is aware of the wounds. PT contacted the primary team regarding this. OBJECTIVE Vital Signs Vitals not formally assessed during session. No concerns during chart review and the patient had nosigns or symptoms consistent with vital changes during therapy session. Outcome Measures: AM-PAC Inpatient Short Form: AM-PAC Basic Mobility (V.2) How much help from another person do you currently need???If the patient hasn't done an activity recently, how much help from another person do you think he/she would needif he/she tried? 1. Turning from your back to your side while in a flat bed without using bedrails?: A Little 2. Moving from lying on your back to sitting on the side of a flat bed without using bedrails?: A Little 3. Moving to and from a bed to a chair (including a wheelchair)?: A Little 4. Standing up from a chair using your arms (e.g., wheelchair, or bedside chair)?: A Little 5. To walk in hospital room?: A Little 6. Climbing 3-5 steps with a railing?: A Lot -[facility] Basic Mobility (V.2) Raw Score: 17 -[facility] Basic Mobility (V.2) Standardized Score: 39.67 Interpretation: Based on scoring guidelines using the raw score value: Those going to home had an average score at or above 18 Those going to facility had an average score at or below 17 Clinicians answer the [facility] Inpatient Short Form based on observed patient activity and/or clinical judgement (ie. patient can be scored without physically performing each activity) Therapeutic Interventions: SUPINE TO SIT: Assistance Level: Supervision of 1 Device: head of bed elevated and bedrail Assistance/Cueing: no cueing required Delivery: Relied on hospital bed features, he cannot have his head of bed below 30 degrees secondary to tube feeds, so unable to assess from bed flat SIT TO STAND: Assistance Level: Contact Guard Assistance, Minimal Assistance of 1 Device: gait belt and front wheeled walker Surface: Bed and Chair Assistance/Cueing: verbal and tactile for anterior trunk lean with nose over toes and keeping weight forward in his toes while in standing. Provided tactile cuing posteriorly. Patient demonstrates improved midline orientation with cueing, although continued to require frequent cues for this. Minimal assistance provided to steady on the first stand, improving to contact guard assistance with cues. Delivery: educated, instructed, assessed, and assisted STAND TO SIT: Assistance Level: Contact Guard Assistance, Minimal Assistance of 1 Device: gait belt and front wheeled walker Surface: Chair Assistance/Cueing: verbal and tactile for backing all the way up to his sitting surface, nose overtoes for improved anterior trunk lean to avoid retropulsion, hand placement, and eccentric control. Minimal assistance for first 2 attempts, improved with cueing for remaining duration of session. Delivery: educated, instructed, assessed, and assisted PIVOT TRANSFERS: Surface:Bed to Chair Assistance Level: Minimal Assistance of 1 Device: gait belt and front wheeled walker Approach: stand pivot, to the right Assistance/Cueing: verbal and tactile for step by step cues for sequencing, and minimal assistance provided throughout for steadying Delivery: educated, instructed, assessed, and assisted GAIT: Distance: 10+23 meters Contact Guard Assistance, Minimal Assistance of 1 Device: gait belt and front wheeled walker Quality: right lateral sway, initially steppage gait pattern on right - improved with donning of ankle foot orthosis, initially step-to gait pattern progressing to step-through gait pattern during session Assistance/Cueing:verbal and tactile for weight through toes to avoid retropulsion, heel/toe pattern for improved foot clearance, initially step by step cues for step-to gait pattern progressing to step-through gait pattern Education : Progressed activity program to include 3 walks per day with nursing staff, plan of care The patient's status was discussed and the following coordination of care occurred with the: RN OT Primary Service - contacted primary service with concern for look of left second toe wound Family/Caregiver Present: Rhona present at end of session after mobility Patient Disposition at the end of Treatment: Patient was left in bedside chair at end of session with call light in reach, all needs met and questions answered. Assessment Discharge Therapy Needs - PT: Ongoing skilled physical therapy Skilled therapy can include physical therapy provided by home health, outpatient clinic, or a post-acute facility. The location of these services is determined by the patient's care team in partnership with patient/family. Level of Care Needed - PT: Assistance with transfers (Comment), Assistance with walking and moving around the home, Assistance with bed mobility Equipment Recommended - PT: Other (Comment) (Will continue to assess/to be assessed by next facility) Barriers to Discharge Home: Current functional status, Fall risk, Safety concerns From a physical therapy perspective, the level of care above has been recommended for Mr. Lau after hospital discharge. This level of care is based on his functional abilities during today's session. This may change throughout the hospital course and will be updated as appropriate. Clinical Impression: Denzel tolerated the session well with no adverse symptoms reported throughout. He was able to demonstrate improved independence with bed mobility and tranfers. He also progressed to ambulation and ambulated a total of 33 m with contact guard assistance to minimal assistance of 1 + 1 additional for a close chair follow. He continues to demonstrate midline disorientation, although his right sided weakness is improved. Frequent cueing provided to avoid retropulsion throughout activity. Despite progress, patient continues to be below his functional baseline and would benefit from inpatient physicaltherapy to facilitate increased safety and independence with functional mobility. Activity goals discussed with Patient or Rhona: Recommendations for mobility/activity while hospitalized: - 3 walks per day with nursing staff - Continuing with seated exercise program - Continuing to sit up in the chair rather than being in the bed for the majority of the day Rehab potential: Mr. Lau has Good potential to achieve established physical therapy goals within the time frame outlined below. Functional Goals: PT Inpatient Goals PT Goal #1: Patient will be able to complete bed mobility independently to demonstrate improved functional independence by discharge PT Goal #1 Status: Progressing PT Goal #2: Patient will be able to complete transfers with modified independence and use of front wheeled walker to demonstrate improved functional independence by discharge PT Goal #2 Status: Progressing PT Goal #3: Patient will be able to ambulate 35 m with use of front wheeled walker and modified independence to demonstrate improved functional independence with ambulating household distances by discharge PT Goal #3 Status: Progressing Plan Treatment Plan: Plan: Plan of care initiated PT Amount: 1 visit per day PT Frequency: 5 times per week PT Inpatient Duration : Until goals are met or hospital discharge Requires Inpatient Follow-Up: Yes PT - Next Inpatient Appointment: 09/24/23 PT Plan Comments: Progress bed mobility, transfers, and ambulation with use of front wheeled walker; balance retraining with a focus on mildine orientation; lower extremity functional strengthening Treatment interventions may include: Treatment/Interventions: Therapeutic exercise, Therapeutic functional activity, Neuromuscular re-education, Gait training Billing: Time Spent with Patient Therapeutic Interventions Therapeutic Activity (min): 32 min Time Tracking Total Timed Units (min): 32 min Total Treatment Time (min): 32 min Macie Thakkar P.T., D.P.T. GER VIDEO * DiegoAleida aggarwal O.T., O.T.D. - 09/23/2023 9:20 AM CST Occupational Therapy Acute Hospital Inpatient Treatment SUBJECTIVE Patient's Name: Hola Lau Referring/Attending Provider: Faustino Nuñez M.B.B.S. Medical Diagnosis: Leukopenia [D72.819] Neutropenia (HCC) [D70.9] Obstruction Intestinal (HCC) [K56.609] Reason for Referral: Occupational Therapy Evaluation and Treatment OT General Acute Onset Date: 09/14/23 Payor: MEDICARE / Plan: MEDICARE A AND B / Product Type: Medicare / History of Present Illness:Hola Lau is a 72 y.o. male who was admitted to [facility] in [place] on 09/14/2023 for Leukopenia, neutropenia, obstruction Intestinal. Family/Caregiver Present: Yes (Significant other Rhona) Patient/Caregiver Goals: To finish on commode and return to bed. Patient Comments: Patient seated on bedside commode upon OT arrival. He was alert and oriented and agreeable to participate in therapy. He denied pain with activity. Fall Risk (65 and older) Fall in the last 12 months: Yes Did you have an injury with the fall?: No Are you fearful of falling?: Yes Fall Risk Comments: Feels unsteady Precautions Other Precautions: right sided weakness, right foot drop, midline disorientation, fall risk, right knee pain, elbow pain, and neck pain OBJECTIVE Vitals not formally assessed during session. No concerns during chart review and the patient had nosigns or symptoms consistent with vital changes during therapy session. Cognition Cognitive assessment method: Therapist observations Arousal/Alertness: Appropriate responses to stimuli Attention: Addressed, no concerns noted Initiation: No difficulty with initiation Orientation: Oriented X4 Following Commands: Follows all commands/directions without difficulty Following Commands Comments: Does benefit from cues to wait for therapist to be ready with front wheeled walker prior to initiating mobility. Safety/Judgment: Impairments noted Impulsivity: Mild Safety/Judgment Comments: Mild impulsivity with transfers, as patient attempts to stand without therapist being ready or having walker placed. Cognition Comments: Patient alert and oriented. No overt cognitive deficits noted. He is mildly impulsive with mobility. He appears to have fluctuating right-sided weakness, although neuro workup wasunremarkable. Cognitive Intervention: Functional cognitive activities Activity Tolerance Endurance: Tolerates 10-20 minutes of activity Sitting Tolerance: within normal limits Standing Tolerance: sit<>stand x 3 reps, stand pivot x 1, stand x 3 min Activity Tolerance Comments: Patient tolerated renetta hygiene, sit<>stands from various heightsand surfaces, static and dynamic standing well overall. He does present with retropulsive lean causing one loss of balance during session. Balance Static Sitting-Balance: Good (Maintains balance without support) Dynamic Sitting-Balance: Good (Maintains balance without support) Static Standing-Balance: Fair (Maintains balance with handheld/contact guard assistance) Dynamic Standing-Balance: Fair (Maintains balance with handheld/contact guard assistance) Grooming Grooming Location: Other (Comment) (Standing at bedside.) Grooming Delivery: Assessed, Therapist assisted, Facilitated Grooming Level of Assistance: Supervision/Set-up, Minimal assistance Grooming Comments: Facilitated face washing while standing at bedside with setup of materials. Minimal assistance at trunk for stability and safety. Patient able to stand unsupported for brief periodof time to open wash cloth. He then completed face washing with right hand while stabilizing self on walker with left hand. Demonstrated good task sequencing throughout. Toileting Toileting Location: Commode chair Toileting Delivery: Assessed, Therapist Assisted, Facilitated Toileting Level of Assistance: Supervision/Set-up, Minimal assistance Toileting Comments: Facilitated renetta hygiene while standing at commode. On first stand from commode, patient presented with retropulsive lean and posterior loss of balance, with controlled lower downfrom OT back into seated position on commode. With feet reset, patient able to stand successfully on second attempt. While self-supporting on walker with left hand, patient able to reach behind to buttocks to complete renetta hygiene with minimal assistance for balance. OT provided assist for quality and task completion. Bed Mobility - Sit to Supine # of Assistants: 1 Level of Assistance: Modified Independent, Supervision/Set-up Device: Bed rail, Head of bed elevated Comments: Patient lowered down onto right elbow, and managed bilateral lower extremities to return to supine without physical assist from OT. Bed Mobility - Scooting # of Assistants: 1 Level of Assistance: Supervision/Set-up, Modified Independent Device: Bed rail Comments: Patient lowered head of bed, and with use of bilateral bed rails and pushing through feet, he was able to scoot self up in bed without physical assist from OT. Sit to Stand Transfers # of Assistants: 1 Transfer Surface: Bed, Toilet/Commode Transfer Equipment: Gait belt, Front wheeled walker Level of Assistance: Minimal assistance Assessment/Delivery: Assessed, Therapist assisted, Facilitated Comments: Facilitated sit>stand from commode x 2 reps with front wheeled walker and minimal assistance of 1. Patient failed first attempt standing from commode, maintaining a forward flexed posture and presenting with significant retropulsive lean, requiring controlled assisted sit back to commode. With reset of feet, patient able to successfully stand on second attempt. Facilitated sit>stand from bed x 2 reps with minimal assistance of 1. On all stands, patient requires increased time tobring bilateral hands up to walker, as he prefers to push from sitting surface with bilateral upperextremities, and requires assistance to prevent retropulsive lean. Stand to Sit Transfers # of Assistants: 1 Transfer Surface: Bed, Toilet/Commode Transfer Equipment: Gait belt, Front wheeled walker Level of Assistance: Minimal assistance, Contact guard assistance Assessment/Delivery: Facilitated, Assessed Comments: Minimal assistance > moderate assistance for controlled sit to commode after loss of balance. Contact guard assistance for safety for all other stands, with patient demonstrating good eccentric control and carryover of technique to reach back for sitting surface. Toilet Transfers # of Assistants: 1 Transfer Surface: Commode Transfer Approach: From, Stand pivot Transfer Equipment: Front wheeled walker Level of Assistance: Minimal assistance Assessment/Delivery: Assessed, Therapist assisted, Facilitated Toilet Transfers Comments: Facilitated transfer from commode to edge of bed with front wheeled walker and minimal assistance. Verbal cues for walker management, and assist at trunk for safety and stability. Verbal cues and physical assist to prevent retropulsive lean. Therapeutic Functional Activity Position: Sitting, Standing Task Component(s): Reaching, Lifting, Pulling Descriptor(s): Using right hand, Using left hand, Using bilateral hands Balance Demand: Static, Dynamic, Within base of support, Outside base of support Physical Assistance Required: Contact guard assistance, Minimal assistance, Moderate assistance Therapeutic Functional Activity Comments: Facilitated toileting with renetta hygiene, sit<>standfrom various heights and surfaces, stand pivot, and dynamic functional standing to address activitytolerance, pulmonary hygiene, strength, balance, and to progress participation in meaningful and functional occupations. Patient tolerated session well overall. He does continue to present with retrop ulsive lean and weakness, however has progressed in dynamic functional standing, completing face washing and renetta hygiene in today's session. Education provided today: Benefits of continued safe mobility Team Communication: Patient's nurse was contacted and patient's status was discussed, Primary service was contacted and patient's status was discussed, grey roll worker/care management was contacted andpatient's status was discussed, Discussed patient's care with PT Outcome Measures [facility] Inpatient Short Form: Putting on and taking off regular lower body clothing?: A Little Putting on and taking off regular upper body clothing?: None Taking care of personal grooming such as brushing teeth?: A Little Bathing (including washing, rinsing, drying)?: A lot Toileting, which includes using toilet, bedpan, or urinal?: A lot Eating meals?: A Little Daily Activities Raw Score (max 24): 17 Daily Activities Standardized Score: 37.26 Interpretation: Clinicians answer the [facility] Inpatient Short Form based on observed patient activity and/or clinical judgement (ie. patient can be scored without physically performing each activity) Based on scoring guidelines using the raw score value: Those going to home had an average score at or above 18 Those going to facility had an average score at or below 17 Patient was left in bed at end of session with call light in reach, all needs met and questions answered. Assessment Discharge Therapy Needs - OT: Ongoing skilled occupational therapy Skilled therapy can include occupational therapy provided by home health, outpatient clinic, or a post-acute facility. The location of these services is determined by the patient's care team in partnership with patient/family. Level of Care Needed - OT: Assistance with toilet/shower transfers, Assistance with toileting, Assistance with showering/bathing, Assistance with dressing, Assistance with meal preparation, Assistance with transportation, Assistance with housekeeping Recommended Adaptive Equipment - OT: Other (Comment) (Ongoing assessment) Barriers to Discharge Home: Current functional status, Fall risk, Safety concerns Clinical Impression: Denzel was seated on commode upon OT arrival. He was alert and oriented and agreeable to therapy today. He denied pain with activity. Patient was able to progress dynamic functional standing, completingperi hygiene in standing with setup of materials and minimal assistance for safety and stability, along with standing at edge of bed x 3 min for grooming and reaching outside base of support with unimanual stabilization on front wheeled walker. Patient does continue to present with retropulsive lean in standing, having one posterior loss of balance requiring controlled sit to commode. Denzel is below his functional baseline, however is making progress towards his OT goals. It is recommended Denzel have assistance from at least 1 capable person for all mobility, ADLs and IADLs. Patient continues to benefit from skilled occupational therapy services to increase activities of daily living independence and promote function and quality of life to the highest level possible. Rehab potential: Mr. Lau has good potential to achieve established occupational therapy goals within the time frame outlined below. Functional Goals: OT Goal #1: Patient will complete upper and lower body dressing with modified independence to decrease dependence on caregiver. OT Goal #1 Status: Slowly progressing OT Goal #2: Patient will complete toileting and toilet hygiene with modified independence to decrease dependence on caregiver. OT Goal #2 Status: Progressing OT Goal #3: Patient will tolerate 7+ minutes dynamic standing balance with supervision to modified independence to allow for grooming at the sink to decrease dependence on caregiver. OT Goal #3 Status: Progressing Progress: Progressing toward goals Plan Occupational Therapy Attestation Statement: Patient agrees with the plan of care and goals. OT Frequency: OT Amount: 1 visit per day OT Frequency: 5 times per week OT Inpatient Duration : Until goals are met or hospital discharge Requires Inpatient OT Follow-Up: Yes OT - Next Inpatient Appointment: 09/24/23 Plan: Continue with current plan OT Plan Comments: Next session: dynamic standing activity (standing grooming); toileting (commode vs toilet); lower body dressing; leisure engagement Treatment interventions may include: Treatment Interventions: Therapeutic exercise, Therapeutic functional activity, Self-care/home management, Neuromuscular re-education, Cognitive skills training Billing: Time Spent with Patient Therapeutic Interventions Home Management Training (min): 15 min Time Tracking Total Timed Units (min): 15 min Total Treatment Time (min): 15 min Aleida Diego O.T., O.T.Yamilka GER VIDEO * Melva Rodas M.D. - 09/23/2023 7:06 AM CST Images from the original note were not included. 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 Hola Lau is a 72 y.o. 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 He presented to the hospital for abdominal pain, nausea and 5 episodes of emesis with CT evidence of recurrent duodenal obstruction in the 3rd segment of duodenum at the area of known lymphomatous involvement with no perforation. SUBJECTIVE No acute events overnight. Stable vitals. Reports pain is significantly improved. Reports he is moving about more. Some concerns from nursingstaff on patient ability to transfer at home as sometimes needing greater than 1-person assist. Feels he is improving significantly and benefiting well from therapy each day. No nausea or abdominal pain. Last BM 09/22. Tolerating full liquid diet well. Reports he is doing well without szymanski. Urinating every 2-3 hours, which he reports is his baseline. Wound on L toe noted by therapies OBJECTIVE VITAL SIGNS Temperature: [36.5 ??C-37 ??C] 36.5 ??C Resp Rate: [14-16] 14 Blood Pressure: (126-154)/(63-108) 131/108 SpO2: [95 %-98 %] 96 % Pulse Rate: [70-85] 83 PHYSICAL EXAM General: Well appearing, no acute distress. HEENT: NC/AT. No scleral icterus. NJT in place. Cardiac: RRR with soft systolic ejection murmur. Pulmonary: CTAB in anterior lung atkinson. Abdomen: Soft, nondistended. Nontender. Skin: No acute rashes. On the feet there are ulcerations on the right great toe and the left foot that are nontender without purulence, tenderness or fluctuance (he says these are chronic and improving). Extremities: Warm and well perfused. No lower extremity edema. ASSESSMENT / PLAN Mr. Hola Lau is a 72 y.o. 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 He was due for the 6th cycle on 09/03, which was postponed due to cytopenia. At this point, there is no plan to receive the 6th cycle, rather to refer patient for surgical evaluation given his duodenal stricture. He presented to the hospital for abdominal pain, nausea and 5 episodes of emesis with CT evidence of recurrent duodenal obstruction in the 3rd segment of duodenum at the area of known lymphomatous involvement with no perforation. Differential diagnoses include duodenal obstruction secondary to scartissue formation vs lymphoma. EGD biopsy was without malignancy in obstruction. Symptoms were significantly relieved after NG tube placement for suctioning. He underwent EGD-guided NJ tube + G port for decompression placement on 09/17. G port has been running on anti-gravity. He has had minimal output from the G port. Ultimately, the goal is for close follow-up with general surgery outpatient for procedural planning regarding the stricture. Will discuss with surgery diet recommendations until thepatient is able to undergo a procedure. Will work with nutrition to establish long-term feeding plan once we receive recommendations. The patient is working very well with physical and occupational therapies. Given his long-term malnutrition from the stricture, he is not at his functional baseline and would certainly benefit from inpatient rehab. I do worry we may have difficulty finding rehab placement if patient requires continued tube feedings. Will work closely with case management for rehab options. Patient and support person were agreeable to this plan. Plan for today: Discuss diet restrictions with general surgery Discuss long-term nutrition plan with NSS D/c fluconazole and Levaquin given no longer neutropenic PT/OT, movement with nursing CM for disposition planning Can consider Prednisone if pain increases Patient will have outpatient hematology appt with Dr. Claudio's team # Duodenal obstruction 2/2 stricture s/p NJ tube placement # Double expressor germinal center DLBCL on treatment with Preston-R-CHP # Constipation LDH 215 on admission EGD biopsy results: No evidence of dysplasia or neoplasm. Nutrition following, currently on NJ feeds and full liquid diet. Appreciate recs. Elevated blood sugars iso tube feeds and holding home T2DM meds. Will discuss change of feeding concentrate with nutrition. Appreciate Surgery consultation: Ultimately he will require drainage procedure ideally after neutropenia resolves and completion of the 6th cycle No plan for 6th cycle currently Surgery needs to wait at least 4 weeks after chemo and no chemotherapy in 6 weeks after surgery Follow up with Dr. Hamilton from general surgery in outpatient clinic, working to arrange earlier appointment (currently 11/27) Awaiting dietary recommendations from general surgery # Prior CVA # R-sided weakness, no acute stroke # HTN # HLD # Hx thyroid cancer s/p thyroidectomy # Gout # R knee effusion Consult rheumatology, appreciate recs. Performed arthrocentesis and therapeutic injection on 09/20 of R knee. MSU crystal present to confirm gout. Consider 2 days of prednisone 20 mg if pain returns MRI Brain 09/20 without acute intracranial findings Neurology consulted, no further recs given absence of acute stroke Hold metformin, Jardiance Continue SSI Continue home meds through NJ tube: ASA 81mg daily Simvastatin 20mg daily Allopurinol 300mg daily Elavil 12.5mg prn (used for peripheral neuropathy) Synthroid per home dosing # Normocytic anemia # Neutropenia, resolved Normocytic anemia has improved since last cycle of chemotherapy. Platelet counts has been within normal range. Continue prophylactic acyclovir Discontinue fluconazole, and levofloxacin # Urinary retention Patient states this has been an issue since spine surgery (10/23/2019) Szymanski removed 09/23. Pt tolerating well. Urinating every 2-3h (pt's baseline) Will start Flomax Current Activity/Mobility: BMAT Level 4 (Able to stand and walk; needs staff assist if fall risk factors identified) Fall Injury Prevention: I have discussed My Plan for Safe Activity with the patient. Diet: NPO Tubes/lines: PIV VTE prophylaxis: enoxaparin Disposition: Uncertain with expected discharge date Stable to discharge criteria (not met): Tests/procedures/consults Severe Malnutrition The patient meets the ASPEN Criteria of malnutrition based on: Energy Intake: No Change Interpretation of Weight Loss: greater than 20% 1 year Body Fat: Severe Loss Muscle Mass: Severe Loss This is in the context of Chronic Illness. Malnutrition Present Upon Admission: Yes Agree with Registered Dietitian's assessment and treatment plan: Nutrition Interventions Interventions: Enteral nutrition, Collaboration and referral of nutrition care, Provide education to increase nutrition knowledge, Provide counseling strategies to apply nutrition knowledge, Discharge and transfer of nutrition care Plan discussed with Hematology 3 Food Beverage Server who was present during the duncan portions of the evaluation today. [place]ematology 3 [place] [phone] with any questions. GER VIDEO * Melva Rodas M.D. - 09/22/2023 7:07 AM CST Images from the original note were not included. 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 Hola Lau is a 72 y.o. 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 He was due for the 6th cycle on 09/03, which was postponed to 09/17 due to cytopenia. He presented to the hospital for abdominal pain, nausea and 5 episodes of emesis with CT evidence of recurrent duodenal obstruction in the 3rd segment of duodenum at the area of known lymphomatous involvement with no perforation. SUBJECTIVE No acute events overnight. Stable vitals. Reports pain is significantly improved. Some residual pain in R shoulder. Did well with his PT exercises yesterday. No nausea or abdominal pain. Last BM 09/21. Tolerating clear liquids very well. Interesting in increasing diet. OBJECTIVE VITAL SIGNS Temperature: [36.4 ??C-36.7 ??C] 36.5 ??C Resp Rate: [14-20] 15 Blood Pressure: (122-145)/(74-83) 131/74 SpO2: [93 %-99 %] 96 % Pulse Rate: [80-102] 80 PHYSICAL EXAM General: Well appearing, no acute distress. HEENT: NC/AT. No scleral icterus. NJT in place. Cardiac: RRR with soft systolic ejection murmur. Pulmonary: CTAB in anterior lung atkinson. Abdomen: Soft, nondistended. Nontender. Skin: No acute rashes. On the feet there are ulcerations on the right great toe and the left foot that are nontender without purulence, tenderness or fluctuance (he says these are chronic and improving). Extremities: Warm and well perfused. No lower extremity edema. ASSESSMENT / PLAN Mr. Hola Lau is a 72 y.o. 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 He was due for the 6th cycle on 09/03, which was postponed to 09/17 due to cytopenia. He presented to the hospital for abdominal pain, nausea and 5 episodes of emesis with CT evidence of recurrent duodenal obstruction in the 3rd segment of duodenum at the area of known lymphomatous involvement with no perforation. Differential diagnoses include duodenal obstruction secondary to scartissue formation vs lymphoma. EGD biopsy without malignancy in obstruction. Symptoms are significantly relieved after NG tube placement for suctioning. He underwent EGD-guided NJ tube + G port for decompression placement on 09/17. Will have follow-up with general surgery outpatient in 4 weeks. Plan for today: PT/OT, movement with nursing. Disposition planning pending strength. Pt interested in outpatient PTand agree this would be appropriate. Will discuss with PT. Prednisone if pain is still persistent At goal rate tube feeds of 85 mL/hour and with clear liquids as tolerated. Will transition to full liquid. No plan for chemo at this time so Dr. Hamilton from general surgery will see him in 4 weeks Patient will have outpatient hematology appt with Dr. Claudio's team. Will cowlitz back with Dr. Claudio regarding surgical follow-up given scheduled appointment is in November. Touch base with GI regarding tube and safety of advancing diet with stricture. Remove szymanski catheter. 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 Hamilton from general surgery in4 weeks EGD biopsy results: No evidence of dysplasia or neoplasm. # Prior CVA # R-sided weakness, no acute stroke # HTN # HLD # Hx thyroid cancer s/p thyroidectomy # Gout # R knee effusion Consult rheumatology, appreciate recs. Performed arthrocentesis and therapeutic injection on 09/20 of R knee. MSU crystal present to confirm gout. Consider 2 days of prednisone 20 mg if pain is persistent MRI Brain 09/20 without acute intracranial findings Neurology consulted, no further recs given absence of acute stroke Hold metformin, Jardiance Continue SSI Continue home meds through NJ tube: ASA 81mg daily Simvastatin 20mg daily Allopurinol 300mg daily Elavil 12.5mg prn (used for peripheral neuropathy) Synthroid per home dosing # Normocytic anemia # Neutropenia Normocytic anemia has improved since last cycle of chemotherapy. Hemoglobin has been stable over past few days in the range of 8-9. Reticulocyte index 1.18. Platelet counts has been within normal range. Patient had a normal neutrophil count and WBC on 09/10, however, neutropenia was noticed on admission. No fevers. Continue to monitor. Peripheral smear revealed polychromasia, otherwise unremarkable Continue prophylactic acyclovir, fluconazole, and levofloxacin EBV and CMV negative # Urinary retention Patient states this has been an issue since spine surgery (10/23/2019) Does not tolerate straight cath well Szymanski placed 09/17, will trial removing today given anticipating discharge in coming days. If concern for BPH contributing, Flomax may not be an option given enteral route via tube Current Activity/Mobility: BMAT Level 4 (Able to stand and walk; needs staff assist if fall risk factors identified) Fall Injury Prevention: I have discussed My Plan for Safe Activity with the patient. Diet: NPO Tubes/lines: PIV VTE prophylaxis: enoxaparin Disposition: Uncertain with expected discharge date Stable to discharge criteria (not met): Tests/procedures/consults Severe Malnutrition The patient meets the ASPEN Criteria of malnutrition based on: Energy Intake: No Change Interpretation of Weight Loss: greater than 20% 1 year Body Fat: Severe Loss Muscle Mass: Severe Loss This is in the context of Chronic Illness. Malnutrition Present Upon Admission: Yes Agree with Registered Dietitian's assessment and treatment plan: Nutrition Interventions Interventions: Enteral nutrition, Collaboration and referral of nutrition care, Provide education to increase nutrition knowledge, Provide counseling strategies to apply nutrition knowledge, Discharge and transfer of nutrition care Plan discussed with Hematology 3 Food Beverage Server, Dr. Stacey Rai who was present during the duncan portions of the evaluation today. [place] [phone] with any questions. GER VIDEO Associated attestation - Stacey Rai M.B.B.S. - 09/22/2023 1:41 PM MANAGER VIDEO I saw and evaluated the patient, participating in the duncan portions of the service. I reviewed the resident/fellow???s note. I agree with the resident/fellow???s findings and plan. Mr. 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 Sixth cycle was omitted late August because of cytopenias. He presented with symptoms of duodenal obstruction. S/p EGD and NJ tube placement on 09/17. GI biopsy without lymphoma. Recently had stroke code with concern for new onset right facial droop No complaints today. TF at goal, tolerating full liquid. Knee pain better. Has lots of questions about the NJ tube and mechanisms of the tube venting VS and labs reviewed . No longer neutropenic today. Alk phos trend noted #1 Duodenal obstruction with history of diffuse large B-cell lymphoma #2 Severe Neutropenia #3 Malnutrition #4 Knee pain ? Gout vs pseudo gout #5 Concern for CVA; CT scan with age indeterminate infarct of L thalamus He is s/p EGD and NJ placement. He is at goal feeds. Will have GI touch base with him on the tube specifics and mechanistics. D/c szymanski today He is on ppx abx for neutropenia, can d/c those tomorrow if still not neutropenic. Knee pain resolved post tap and intraarticular steroids. No new concerning neurological changes. Rest as per Dr Rodas * Melva Rodas M.D. - 09/21/2023 7:00 AM CST Images from the original note were not included. 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 Hola Lau is a 72 y.o. 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 He was due for the 6th cycle on 09/03, which was postponed to 09/17 due to cytopenia. He presented to the hospital for abdominal pain, nausea and 5 episodes of emesis with CT evidence of recurrent duodenal obstruction in the 3rd segment of duodenum at the area of known lymphomatous involvement with no perforation. SUBJECTIVE No acute events overnight. Stable vitals. Reports pain is significantly improved compared to yesterday. Residual pain in R shoulder. Will move about today. Reports RLE movement improved. No nausea or abdominal pain. Last BM 09/21. Tolerating clear liquid diet well. OBJECTIVE VITAL SIGNS Temperature: [36.2 ??C-36.6 ??C] 36.4 ??C Resp Rate: [15-18] 18 Blood Pressure: (117-136)/(68-81) 123/79 SpO2: [94 %-97 %] 96 % Weight: [72.4 kg] 72.4 kg BMI (Calculated): [23.6 kg/m??] 23.6 kg/m?? Pulse Rate: [89-113] 93 PHYSICAL EXAM General: Well appearing, no acute distress. HEENT: NC/AT. No scleral icterus. NJT in place. Cardiac: RRR with soft systolic ejection murmur. Pulmonary: CTAB in anterior lung atkinson. Abdomen: Soft, nondistended. Nontender. Skin: No acute rashes. On the feet there are ulcerations on the right great toe and the left foot that are nontender without purulence, tenderness or fluctuance (he says these are chronic and improving). Extremities: Warm and well perfused. No lower extremity edema. ASSESSMENT / PLAN Mr. Hola Lau is a 72 y.o. 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 He was due for the 6th cycle on 09/03, which was postponed to 09/17 due to cytopenia. He presented to the hospital for abdominal pain, nausea and 5 episodes of emesis with CT evidence of recurrent duodenal obstruction in the 3rd segment of duodenum at the area of known lymphomatous involvement with no perforation. Differential diagnoses include duodenal obstruction secondary to scartissue formation vs lymphoma. EGD biopsy without malignancy in obstruction. Symptoms are significantly relieved after NG tube placement for suctioning. He underwent EGD-guided NJ tube + G port for decompression placement on 09/17. Will have follow-up with general surgery outpatient in 4 weeks. Plan for today: PT/OT, movement with nursing. Disposition planning pending strength. Prednisone if pain is still persistent Continue to uptitrate TF to goal of 65 mL/hour as tolerated with clear liquids as tolerated. FU BMs Continue to monitor refeeding labs No plan for chemo at this time so Dr. Hamilton from general surgery will see him in 4 weeks Patient will have outpatient hematology appt with Dr. 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 Hamilton from general surgery in4 weeks EGD biopsy results: No evidence of dysplasia or neoplasm. # Prior CVA # R-sided weakness, no acute stroke # HTN # HLD # Hx thyroid cancer s/p thyroidectomy # Gout # R knee effusion Consult rheumatology, appreciate recs. Performed arthrocentesis and therapeutic injection on 09/20 of R knee. MSU crystal present to confirm gout. Consider 2 days of prednisone 20 mg if pain is persistent MRI Brain 09/20 without acute intracranial findings Neurology consulted, no further recs given absence of acute stroke Hold metformin, Jardiance Continue SSI Continue home meds through NJ tube: ASA 81mg daily Simvastatin 20mg daily Allopurinol 300mg daily Elavil 12.5mg prn (used for peripheral neuropathy) Synthroid per home dosing # Normocytic anemia # Neutropenia Normocytic anemia has improved since last cycle of chemotherapy. Hemoglobin has been stable over past few days in the range of 8-9. Reticulocyte index 1.18. Platelet counts has been within normal range. Patient had a normal neutrophil count and WBC on 09/10, however, neutropenia was noticed on admission. No fevers. Continue to monitor. Peripheral smear revealed polychromasia, otherwise unremarkable Continue prophylactic acyclovir, fluconazole, and levofloxacin EBV and CMV negative # Urinary retention Patient states this has been an issue since spine surgery (10/23/2019) Does not tolerate straight cath well Szymanski placed 09/17 If concern for BPH contributing, Flomax may not be an option given enteral route via tube Current Activity/Mobility: BMAT Level 4 (Able to stand and walk; needs staff assist if fall risk factors identified) Fall Injury Prevention: I have discussed My Plan for Safe Activity with the patient. Diet: NPO Tubes/lines: PIV VTE prophylaxis: enoxaparin Disposition: Uncertain with expected discharge date Stable to discharge criteria (not met): Tests/procedures/consults Severe Malnutrition The patient meets the ASPEN Criteria of malnutrition based on: Energy Intake: No Change Interpretation of Weight Loss: greater than 20% 1 year Body Fat: Severe Loss Muscle Mass: Severe Loss This is in the context of Chronic Illness. Malnutrition Present Upon Admission: Yes Agree with Registered Dietitian's assessment and treatment plan: Nutrition Interventions Interventions: Enteral nutrition, Collaboration and referral of nutrition care, Provide education to increase nutrition knowledge, Provide counseling strategies to apply nutrition knowledge, Discharge and transfer of nutrition care Plan discussed with Hematology 3 Food Beverage Server, Faustino Tamez M.B.B.S., who was present during the duncan portions of the evaluation today. [place] 3 [place] [phone] with any questions. GER VIDEO Associated attestation - Stacey Rai M.B.B.S. - 09/21/2023 4:45 PM MANAGER VIDEO I saw and evaluated the patient, participating in the duncan portions of the service. I reviewed the resident/fellow???s note. I agree with the resident/fellow???s findings and plan. Mr. 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 Sixth cycle was omitted late August because of cytopenias. He presented with symptoms of duodenal obstruction. S/p EGD and NJ tube placement on 09/17. GI biopsy without lymphoma. Recently had stroke code with concern for new onset right facial droop No complaints today VS and labs reviewed #1 Duodenal obstruction with history of diffuse large B-cell lymphoma #2 Severe Neutropenia #3 Malnutrition #4 Knee pain ? Gout vs pseudo gout #5 Concern for CVA; CT scan with age indeterminate infarct of L thalamus He is s/p EGD and NJ placement. Goal to increase the feeds. He is on ppx abx for neutropenia. He had knee pain and right knee effusion. and knee was tapped, he received intraarticular steroid and wasstarted on po steroids for gout . No new concerning neurological changes. Rest as per Dr Rodas * Gina Klein M.D. - 09/20/2023 6:27 PM CST NEUROLOGY CONSULTS SIGN OFF NOTE Mr. Hola Lau's MRI was reviewed with the neurology consulting service. 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 As stated before, we believe that there alternative explanations to the new weakness we are appreciating on examination (i.e. pain). We would not make any recommendations to his secondary stroke prevention plan including aspirin 81 mg daily. No neurology follow up is required. Neurology will sign off at this time. Please page [phone] should questions arise. Gina Sanz M.D. GER VIDEO * Alivia Burch O.T. - 09/20/2023 3:11 PM CST OT attempted to evaluate patient, patient was busy working with PT. Therapist will return as able. GER VIDEO * Faustino Nuñez M.B.B.SJohanna - 09/20/2023 3:09 PM CST SUBJECTIVE Assisted by Dr. Rodas I visited Mr. Lau and reviewed my recommendations with him. I reviewed his care in detail with the Hem 3 Service; and I agree with Dr. Rodas's note dated September 20, 2023. HISTORY OF PRESENT ILLNESS Mr. 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 Sixth cycle was omitted late August because of cytopenias. He presented with symptoms of duodenal obstruction. S/p EGD and NJ tube placement on 09/17. GI biopsy without lymphoma C/o neck pain an right knee pain. OBJECTIVE PHYSICAL EXAMINATION General: Lying in bed with NJ in place. DIAGNOSTICS Laboratory studies reviewed. ASSESSMENT / PLAN #1 Duodenal obstruction with history of diffuse large B-cell lymphoma S/P EGD and NJ placement. Biopsy: no lymphoma Reviewed care with Dr Claudio #2 Severe Neutropenia We will monitor closely. #3 Malnutrition Monitor electrolytes and tolerability of NJ feeding #4 Knee pain ? Gout vs pseudo gout Rheumatology consult #[address] scan with age indeterminate infarct of L thalamus MRI today GER VIDEO * Macie Thakkar PMaicol, D.P.T. - 09/20/2023 2:20 PM CST Physical Therapy Inpatient Treatment SUBJECTIVE Patient's Name: Hola Lau Referring/Attending Provider: Faustino Nuñez M.B.B.S. Medical Diagnosis: Leukopenia [D72.819] Neutropenia (HCC) [D70.9] Obstruction Intestinal (HCC) [K56.609] Reason for Referral: PT Evaluate and Treat History of Present Illness: Hola Lau is a 72 y.o. male who was admitted to [facility] in [place] on 09/14/2023 for Leukopenia [D72.819] Neutropenia (HCC) [D70.9] Obstruction Intestinal (HCC) [K56.609] Precautions Other Precautions: right sided weakness, right foot drop, midline disorientation, follow up neuro work-up, fall risk, right knee pain, elbow pain, and neck pain Pain Assessment: 0/10 pain at rest, unrated right knee pain in standing - patient reported it was tolerable to continue with bed to chair transfer Patient/Caregiver Goals: Decrease pain Subjective Comments: Patient was greeted while lying in bed and was agreeable to PT treatment. He denied neck pain, headache, shortness of breath, or chest pain during the session. Rhona reports shethinks that his right eye looks different then before the hospitalization. She did not notice significant right sided weakness before the hospitalization. He reports that he was walking prior to the hospitalization. He reports his right knee feels better after the aspiration this morning. OBJECTIVE Vital Signs Vitals monitored throughout session; see below for values outside of normal range. Nursing aware. Primary service made aware of tachycardia: Heart rate: at rest - 103, after activity - 120, prior to PT leaving the room - mid 110's Blood pressure: within safe limits and stable before and after activity Oxygen saturation: 90%+ throughout session Strength: Upper extremities: Right - lacks antigravity right shoulder flexion, able to complete a bicep curl against gravity Left - full active shoulder and bicep range of motion Lower extremities: Right - slow and effortful movement with improved antigravity strength through a greater range of motion today with long-arc quads, slow and effortful antigravity hip flexion Left - lacks terminal knee extension, although able to complete without significant effort against gravity with long arc quadriceps, antigravity plantarflexion, antigravity hip flexion Outcome Measures: [facility] Inpatient Short Form: [facility] Basic Mobility (V.2) How much help from another person do you currently need???If the patient hasn't done an activity recently, how much help from another person do you think he/she would needif he/she tried? 1. Turning from your back to your side while in a flat bed without using bedrails?: A Little 2. Moving from lying on your back to sitting on the side of a flat bed without using bedrails?: A Lot 3. Moving to and from a bed to a chair (including a wheelchair)?: Total 4. Standing up from a chair using your arms (e.g., wheelchair, or bedside chair)?: Total 5. To walk in hospital room?: Total 6. Climbing 3-5 steps with a railing?: Total -[facility] Basic Mobility (V.2) Raw Score: 9 [facility] Basic Mobility (V.2) Standardized Score: 25.8 Interpretation: Based on scoring guidelines using the raw score value: Those going to home had an average score at or above 18 Those going to facility had an average score at or below 17 Clinicians answer the [facility] Inpatient Short Form based on observed patient activity and/or clinical judgement (ie. patient can be scored without physically performing each activity) Therapeutic Interventions: SUPINE TO SIT: Assistance Level: Moderate Assistance of 2 Device: head of bed elevated and bedrail Assistance/Cueing: verbal and tactile for use of long sit pivot technique. Verbal cues to walk legsoff the edge of the bed. Moderate assistance provided at the trunk to come to upright sitting. Sheet was used to assist with scooting to gain feet flat at the edge of bed dependently as patient was unable to scoot himself. Patient demonstrated midline disorientation throughout the transfer with posterolateral losses of balance to the right. Once in sitting, he benefitted from being placed into midline by PT and with verbal cues for an anterior trunk lean and cues for midline. He was able to maintain midline for up to 2 minutes at a time with right upper extremity assistance at the bed rail and frequent, repeated verbal cues. When he lifted his legs to place them on the Dayday Stedy platform he has a posterior loss of balance with nursing correcting this. Delivery: educated, instructed, assessed, and assisted SIT TO STAND: Assistance Level: Moderate Assistance of 2 from the bed, minimal assistance x2 from the dayday stedy paddle Device: gait belt and dayday stedy Surface: Bed and Dayday Stedy Paddle Assistance/Cueing: verbal for upper extremity placement, lower extremity placement, and safe use ofthe dayday stedy. Patient reported right lower extremity shaking in standing. Patient was unable to safely gain Delivery: educated, instructed, assessed, and assisted STAND TO SIT: Assistance Level: Moderate assistance of 2 to the chair height, minimal assistance x2 from the sarastedy paddle Device: gait belt and dayday stedy Surface: Chair and Dayday Stedy Paddle Assistance/Cueing: verbal and tactile for Eccentric control. Assistance required as above for safe eccentric control. Delivery: educated, instructed, assessed, and assisted Surface:Bed to Chair Assistance Level: Total Assistance of 2 Device: gait belt and dayday stedy Approach: not applicable Assistance/Cueing: Contact guard assistance at the trunk for trunk control + assistance of 1 to navigate the dayday stedy Delivery: assessed and assisted THERAPEUTIC EXERCISE: Seated Therapeutic Exercise: Side: bilateral - heel raises only on the left secondary to chronic right foot drop Mode: active range of motion Exercises: Long arc quads, Marching, and Seated heel raises Repetitions: 10 Assist/cueing: Eccentric control and Full range of motion Education : 1. Activity goals: up to the chair 3 times per day with nursing staff, seated exercise program, benefit of being in the chair rather than in bed when able 2. plan of care The patient's status was discussed and the following coordination of care occurred with the: excel analyst/Caregiver OT Primary Service - Primary service contacted before the session and stated they had no concerns withPT working with him prior to his MRI later today. They also had no concerns with him working with PT given his headache, neck pain, and reduced neck range of motion yesterday. Primary service was contacted after the session and made aware of significant functional decline that patient has experienced since 09/18 where per flowsheets he was a 1 assist to use the walker. I also reported that he continued to have right sided facial droop with a more closed right eye, right lower extremity weakness,right upper extremity weakness, and right trunk lean that was similar to yesterday. Neurology - PT contacted neurology clarifying that PT noted midline disorientation with right trunkleaning and losses of balance to the right in sitting, new right lower extremity weakness per the patient's report, as well as a right facial droop Family/Caregiver Present: Rhona at the end of the session Patient Disposition at the end of Treatment: Patient was left in bedside chair at end of session with call light in reach, all needs met and questions answered. Assessment Discharge Therapy Needs - PT: Ongoing skilled physical therapy Skilled therapy can include physical therapy provided by home health, outpatient clinic, or a post-acute facility. The location of these services is determined by the patient's care team in partnership with patient/family. Level of Care Needed - PT: Assistance with transfers (Comment), Assistance with walking and moving around the home, Assistance with bed mobility Equipment Recommended - PT: Other (Comment) (Will continue to assess) Barriers to Discharge Home: Current functional status, Fall risk, Safety concerns From a physical therapy perspective, the level of care above has been recommended for Mr. Lau after hospital discharge. This level of care is based on his functional abilities during today's session. This may change throughout the hospital course and will be updated as appropriate. Clinical Impression: Denzel tolerated the session fairly well, although did have right knee pain and tachycardia up to 120 after activity. He has had a significant functional decline since 09/18 where per flowsheets he was mobilizing with nursing staff with 1 assist with the walker. He reports before his hospitalization hewas able to walk with a walker. Today he required moderate assistance of 2 to stand from the bed with the use of the Dayday Stedy. He was unable to safely gain hip clearance from the bed with 2 assist with use of the walker this date. He continues to demonstrate right sided weakness. Primary team wascontacted after the session to report his tachycardia, functional decline, and continued right sided weakness. I collaborated with Denzel to set activity goals while admitted and he was agreeable to getto/from the chair with nursing staff with the Dayday Stedy 3 times per day over the weekend. Patient continues to be below his functional baseline and would benefit from inpatient physical therapy to facilitate increased safety and independence with functional mobility Activity goals discussed with Patient: Recommendations for mobility/activity while hospitalized: - Transfer to/from the chair 3 times per day with nursing staff with use of the Dayday Stedy Rehab potential: Mr. Lau has Good potential to achieve established physical therapy goals within the time frame outlined below. Functional Goals: PT Inpatient Goals PT Goal #1: Patient will be able to complete bed mobility independently to demonstrate improved functional independence by discharge PT Goal #1 Status: Slowly progressing PT Goal #2: Patient will be able to complete transfers with modified independence and use of front wheeled walker to demonstrate improved functional independence by discharge PT Goal #2 Status: Slowly progressing PT Goal #3: Patient will be able to ambulate 35 m with use of front wheeled walker and modified independence to demonstrate improved functional independence with ambulating household distances by discharge PT Goal #3 Status: Ongoing Plan Treatment Plan: Plan: Plan of care initiated PT Amount: 1 visit per day PT Frequency: 5 times per week PT Inpatient Duration : Until goals are met or hospital discharge Requires Inpatient Follow-Up: Yes PT - Next Inpatient Appointment: 09/23/23 PT Plan Comments: Follow up regarding neuro work-up; progress bed mobility and transfers with use of a dayday stedy (progress to a front wheeled walker when appropriate; neuromuscular re-education Treatment interventions may include: Treatment/Interventions: Therapeutic exercise, Therapeutic functional activity, Neuromuscular re-education, Gait training Billing: Time Spent with Patient Therapeutic Interventions Therapeutic Activity (min): 28 min Time Tracking Total Timed Units (min): 28 min Total Treatment Time (min): 28 min Macie Thakkar P.T., D.P.T. GER VIDEO * Dave Oneil Pharm.D., R.Ph. - 09/20/2023 1:06 PM CST Pharmacist Progress Note 72 y.o. male with DLBCL admitted for abdominal pain. PMH: T2DM, CKD stage 2, TIA (2002), gout, hypertension, and hyperlipidemia , OCNNIE on CPAP, arthritis OBJECTIVE Home medications Held: metformin, empagliflozin, aspirin, simvastatin, allopurinol, levothyroxine, amitriptyline VTE prophylaxis: SQH - consider changing to enoxaparin given adequate renal function to lessen frequency of injections GI prophylaxis: none Antimicrobial prophylaxis: Levaquin, Acyclovir, and Caspofungin Hem/Onc History, Therapy Summary # DLBCL (dx 05/14/2023) 05/2023 Methylprednisolone, Rituximab 05/21/2023-08/2023: Preston-R-CHP 08/12/23: C5D1 C6 postponed for anemia ASSESSMENT / PLAN #Duodenal obstruction NG tube 09/17: EGD with NJ tube placed; biopsies negative for malignancy Meds changed to be given via tube #Facial droop, R sided weakness Unclear if acute vs long standing CTa head and neck negative for hemorrhage or large vessel occlusion MRI brain planned 09/20 #Knee pain Rheumatology consulted and performed aspiration of R knee 09/20/23. Studies sent and pending Changes to medications anticipated at discharge: New: TBD Changes: TBD Discontinue: TBD Rx approval pending: none Dispo: TBD Dave Oneil Pharm.D., R.Ph. The recommendations contained in this note are based on information available at the time of documentation and may not reflect changes in the care plan discussed after the time of signing. GER VIDEO * Melva Rodas M.D. - 09/20/2023 7:06 AM CST Images from the original note were not included. 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 Hola Lau is a 72 y.o. 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 He was due for the 6th cycle on 09/03, which was postponed to 09/17 due to cytopenia. He presented to the hospital for abdominal pain, nausea and 5 episodes of emesis with CT evidence of recurrent duodenal obstruction in the 3rd segment of duodenum at the area of known lymphomatous involvement with no perforation. SUBJECTIVE No acute events overnight. Stable vitals. Continues to endorse significant neck pain and RLE knee pain. No nausea or abdominal pain. Last BM 09/16. EGD biopsy results: No evidence of dysplasia or neoplasm. OBJECTIVE VITAL SIGNS Temperature: [36.4 ??C-37.2 ??C] 37.2 ??C Heart Rate: [90-95] 90 Resp Rate: [11-21] 17 Blood Pressure: (121-138)/(69-85) 127/69 SpO2: [93 %-100 %] 96 % Pulse Rate: [87-108] 94 PHYSICAL EXAM General: Well appearing, no acute distress. HEENT: NC/AT. No scleral icterus. NJT in place. Cardiac: RRR with soft systolic ejection murmur. Pulmonary: CTAB in anterior lung atkinson. Abdomen: Soft, nondistended. Nontender. Skin: No acute rashes. On the feet there are ulcerations on the right great toe and the left foot that are nontender without purulence, tenderness or fluctuance (he says these are chronic and improving). Extremities: Warm and well perfused. No lower extremity edema. ASSESSMENT / PLAN Mr. Hola Lau is a 72 y.o. 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 He was due for the 6th cycle on 09/03, which was postponed to 09/17 due to cytopenia. He presented to the hospital for abdominal pain, nausea and 5 episodes of emesis with CT evidence of recurrent duodenal obstruction in the 3rd segment of duodenum at the area of known lymphomatous involvement with no perforation. Differential diagnoses include duodenal obstruction secondary to scartissue formation vs lymphoma. Symptoms are significantly relieved after NG tube placement for suctioning. He underwent EGD-guided NJ tube + G port for decompression placement on 09/17. Plan for today: MRI brain today Neurology consult, appreciate recs. Rheum consult for gout concern, appreciate recs. Aspirate R knee. Continue to monitor refeeding labs Continue to uptitrate TF to goal of 65 mL/hour as tolerated FU BMs Consult PT/OT No plan for chemo at this time so Dr. Hamilton from general surgery will see him in 4 weeks Patient will have outpatient hematology appt with Dr. Claudio # Duodenal obstruction 2/2 known malignancy vs stricture s/p NJ tube placement # Double expressor germinal center DLBCL on treatment with Preston-R-CHP # Constipation LDH 215 on admission Appreciate Surgery consultation: Ultimately he will require drainage procedure ideally after neutropenia resolves and completion of the 6th cycle Surgery needs to wait at least 4 weeks after chemo and no chemotherapy in 6 weeks after surgery No plans for chemotherapy at this time so patient will be seen by Dr. Hamilton from general surgery in4 weeks EGD biopsy results: No evidence of dysplasia or neoplasm. # Normocytic anemia # Neutropenia Normocytic anemia has improved since last cycle of chemotherapy. Hemoglobin has been stable over past few days in the range of 8-9. Reticulocyte index 1.18. Platelet counts has been within normal range. Patient had a normal neutrophil count and WBC on 09/10, however, neutropenia was noticed on admission. No fevers. Continue to monitor. Peripheral smear revealed polychromasia, otherwise unremarkable Continue prophylactic acyclovir, fluconazole, and levofloxacin EBV and CMV negative # Prior CVA # R-sided weakness # HTN # HLD # Hx thyroid cancer s/p thyroidectomy # Gout # R knee effusion Consult rheumatology, appreciate recs. R knee aspiration and analysis Hold metformin, Jardiance Continue SSI Continue home meds through NJ tube: ASA 81mg daily Simvastatin 20mg daily Allopurinol 300mg daily Elavil 12.5mg prn (used for peripheral neuropathy) Synthroid per home dosing # Urinary retention Patient states this has been an issue since spine surgery (10/23/2019) Does not tolerate straight cath well Szymanski placed 09/17 If concern for BPH contributing, Flomax may not be an option given enteral route via tube Current Activity/Mobility: BMAT Level 4 (Able to stand and walk; needs staff assist if fall risk factors identified) Fall Injury Prevention: I have discussed My Plan for Safe Activity with the patient. Diet: NPO Tubes/lines: PIV VTE prophylaxis: enoxaparin Disposition: Uncertain with expected discharge date Stable to discharge criteria (not met): Tests/procedures/consults Severe Malnutrition The patient meets the ASPEN Criteria of malnutrition based on: Energy Intake: No Change Interpretation of Weight Loss: greater than 20% 1 year Body Fat: Severe Loss Muscle Mass: Severe Loss This is in the context of Chronic Illness. Malnutrition Present Upon Admission: Yes Agree with Registered Dietitian's assessment and treatment plan: Nutrition Interventions Interventions: Enteral nutrition, Collaboration and referral of nutrition care, Provide education to increase nutrition knowledge, Provide counseling strategies to apply nutrition knowledge, Discharge and transfer of nutrition care Plan discussed with Hematology 3 Food Beverage Server, Faustino Tamez M.B.B.S., who was present during the duncan portions of the evaluation today. [place] page [place] Hematology 3 [place] [phone] with any questions. GER VIDEO * Gina Klein M.D. - 09/19/2023 6:05 PM CST NEUROLOGY CONSULTS [facility] [place] NOTE Mr. Hola Lau's case was reviewed with the neurology consulting service and discussed with our clinical sales consultant Dr. Palma. He was not personally seen or examined. I was called by Dr. Freeman during an CIVIL ENGINEERING TEACHER regarding a concern for new onset facial droop. He has a history of ipsilateral Julien's palsy which reportedly had resolved in the past. Facial droop was 1st noticed at shift change around 07:00 today but became more pronounced during physical therapy prompting an CIVIL ENGINEERING TEACHER. By evaluation by our CIVIL ENGINEERING TEACHER fellow, the patient had no other upper or lower extremity weakness and no satelliting. The facial droop was lower half of the face only. The patient himself had difficulty deciding whether his facial droop was new or baseline. There seemed to be some fluctuation in the examination. Due to a last known normal this morning, he was not a candidate for thrombolysis. The patient underwent a CT of the head and CTA of the head and neck. CT of the head was negative for hemorrhage, and CTA of the head and neck did not demonstrate a large vessel occlusion. The patientwas hemodynamically stable and returned to the floor. 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 I was made aware that the CT of the head did show an age-indeterminate infarct of the left thalamus/internal capsule. At this juncture, we do not know when this infarct may have happened (indeed it may reflect the documented infarctfrom 2002 for which we do not have imaging or further details but could be likely due to documentedsymptoms) but an MRI would be helpful in further characterizing the timeline which I have recommended be obtained in the morning. Out of an abundance of caution, I recommended that overnight, the patient's blood pressure goals beliberalized and to not treat for a systolic blood pressure less than 220 mm Hg. Also recommended nursing perform a bedside swallow evaluation before further PO intake and that MATH AND PHYSICS INSTRUCTOR be consulted shouldany concerns arise. RECOMMENDATIONS: - MRI brain with and without contrast - Allow for permissive hypertension up to SBP 220 tonight - The Neurology Consulting Service will plan to see the patient in the morning. Please page [phone] should further questions arise. Gina Sanz M.D. GER VIDEO * Faustino Nuñez M.B.B.S. - 09/19/2023 2:26 PM CST SUBJECTIVE Assisted by I visited Mr. Lau and reviewed my recommendations with him. I reviewed his care in detail with the Hem 3 Service; and I agree with 's note dated September 19, 2023. HISTORY OF PRESENT ILLNESS Mr. 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 Sixth cycle was omitted late August because of cytopenias. He presented with symptoms of duodenal obstruction. S/p EGD and NJ tube placement on 09/17. Reviewed biopsy without lymphoma C/o neck pain and headache OBJECTIVE PHYSICAL EXAMINATION General: Lying in bed with NJ in place. DIAGNOSTICS Laboratory studies reviewed. ASSESSMENT / PLAN #1 Duodenal obstruction with history of diffuse large B-cell lymphoma S/P EGD and NJ placement. Biopsy: no lymphoma Reviewed care with Dr Claudio #2 Severe Neutropenia We will monitor closely. #3 Malnutrition Monitor electrolytes and tolerability of NJ feeding GER VIDEO * Beata Carcamo RDN, LD - 09/19/2023 11:15 AM CST Nutrition Care Plan Follow Up Clinical Nutrition continues to follow patient for assessment of nutritional status and tube feeding recommendations/management ASSESSMENT Completed visit with patient today as part of face to face care. Current Nutrition (since admission): Denzel continues on enteral feedings via nasojejunal tube, placed09/17/23. Currently tolerating feeds well at 50 mL/hr w/ goal rate of 65 mL/hr x 24 hours. Nutrition education: LORNAN provided book and education to patient and Rhona regarding home tube feeds on 09/18/23. Education will be reinforced prior to dismissal by RDN and [facility]. GI Tubes (Adults) Gastrostomy-jejunostomy 16 Fr Nare;Left (Active) Placement Date/Time: 09/17/23 1551 Placed by: Murali Randle GI GI Tube Type: (c) Gastrostomy-jejunostomy GI Tube Size: 16 Fr Tube Location: Nare;Left Connector Type: Small bore (ENFit??) Medications: acyclovir allopurinoL aspirin diclofenac sodium fluconazole heparin (porcine) insulin aspart levoFLOXacin levothyroxine levothyroxine lidocaine simvastatin Pertinent Labs: Last 3 results Lab Units 09/19/23 0546 09/18/23 1557 09/18/23 0516 SODIUM mmol/L 137 136 138 POTASSIUM mmol/L 3.6 3.6 3.5* CHLORIDE mmol/L 98 97* 99 BUN mg/dL 10 8 8 CREATININE mg/dL 0.70* 0.69* 0.62* PHOSPHORUS INORGANIC mg/dL 2.9 3.0 3.3 CALCIUM mg/dL 8.3* 8.1* 8.4* MAGNESIUM mg/dL 2.1 1.5* 1.2* Medications include: Insulin, Zofran Current nutrition orders: Current Diet Tube feeding without oral diet -Nutren 1.5 (RTH); Feeding route: Nasojejunal; Feed options: Continuous; Starting rate (ml/hr): 20 mL/hr; Rate advancement (ml/hrs): 10 mL/hr every 12 hours; Continuous goal rate (ml/hr): 65 mL/hr; Daily goal volume ... starting at 09/17 1658 No oral nutrition, tube feeding allowed starting at 09/17 1658 Weight since admission: Height: 175 cm Admission Weight: 73.3 kg (09/14/2023) Current Weight: 73.3 kg BMI (Calculated): 23.9 kg/m?? Weight change since admission: 0 kg Estimated Needs: Total Calorie Needs: 8173-4929 calories/day Method to Estimate Energy Needs: kcal/kg (25-30 kcal/kg) Weight Used for Equation Calculations: 73.3 kg Total Protein Needs: 88 - 110 grams/day Method to Estimate Protein Needs (g/kg): 1.2 - 1.5 gm/kg Weight Used to Calculate Protein Needs (Kg): 73.3 kg Nutrition Diagnosis: Altered GI function related to duodenal obstruction 2/2 known malignancy as evidenced by need for nutrition support w/ NJ tube placement w/ gastric decompression port. Malnutrition (undernutrition) related to side effects from treatment as evidenced by severe fat/muscle loss, weight loss of > 20% in less than one year PLAN Nutrition Intervention: Enteral nutrition, Collaboration and referral of nutrition care, Provide education to increase nutrition knowledge, Provide counseling strategies to apply nutrition knowledge,Discharge and transfer of nutrition care Nutrition parameter to monitor: Diet Progression/NPO Status, Enteral, Weight Status, Comparative Standards, Pertinent Labs, Nausea/Vomiting/Diarrhea ASPEN Criteria Malnutrition Status: Severe Malnutrition Recommendations: Continue gradual increase in enteral feeding rate as tolerated to goal of 65 mL/hour. [place] will provide equipment and formula closer to time of discharge Continue daily electrolytes and replace as indicated Consider physical therapy consult Clinical Nutrition will continue to follow. For questions about patient's nutritional care please contact pager [phone] on weekdays 07:30-16:00 or [phone] on weekends/holidays. GER VIDEO * Eugenie Sen M.D. - 09/19/2023 7:33 AM CST Images from the original note were not included. HEMATOLOGY 3 SERVICE No care master steam yacht to display SUBJECTIVE No acute events overnight. Stable vitals Had headache overnight and was given Tylenol. He says that the pain originates from his neck and started around 2 days ago. Ice and Tylenol have been helpful. No nausea or abdominal pain. Last BM 2 days ago EGD biopsy results: No evidence of dysplasia or neoplasm. OBJECTIVE VITAL SIGNS Temperature: [36.4 ??C-37.1 ??C] 36.9 ??C Resp Rate: [16-18] 18 Blood Pressure: (118-144)/(69-79) 118/74 SpO2: [96 %-99 %] 96 % Pulse Rate: [82-94] 94 PHYSICAL EXAM General: Well appearing, no acute distress. HEENT: NC/AT. No scleral icterus. NJT in place. Cardiac: RRR with soft systolic ejection murmur. Pulmonary: CTAB in anterior lung atkinson. Abdomen: Soft, nondistended. Nontender. Skin: No acute rashes. On the feet there are ulcerations on the right great toe and the left foot that are nontender without purulence, tenderness or fluctuance (he says these are chronic and improving). Extremities: Warm and well perfused. No lower extremity edema. ASSESSMENT / PLAN Mr. Hola Lau is a 72 y.o. 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 He was due for the 6th cycle on 09/03, which was postponed to 09/17 due to cytopenia. He presented to the hospital for abdominal pain, nausea and 5 episodes of emesis with CT evidence of recurrent duodenal obstruction in the 3rd segment of duodenum at the area of known lymphomatous involvement with no perforation. Differential diagnoses include duodenal obstruction secondary to scartissue formation vs lymphoma. Symptoms are significantly relieved after NG tube placement for suctioning. He underwent EGD-guided NJ tube + G port for decompression placement on 09/17. Plan for today: Continue to monitor refeeding labs Continue to uptitrate TF to goal of 65 mL/hour as tolerated Consult PT/OT No plan for chemo at this time so Dr. Hamilton from general surgery will see him in 4 weeks Patient will have outpatient hematology appt with Dr. Claudio # Duodenal obstruction 2/2 known malignancy vs stricture s/p NJ tube placement # Double expressor germinal center DLBCL on treatment with Preston-R-CHP LDH 215 on admission Appreciate Surgery consultation: Ultimately he will require drainage procedure ideally after neutropenia resolves and completion of the 6th cycle Surgery needs to wait at least 4 weeks after chemo and no chemotherapy in 6 weeks after surgery No plans for chemotherapy at this time so patient will be seen by Dr. Hamilton from general surgery in4 weeks EGD biopsy results: No evidence of dysplasia or neoplasm. # Normocytic anemia # Neutropenia Normocytic anemia has improved since last cycle of chemotherapy. Hemoglobin has been stable over past few days in the range of 8-9. Reticulocyte index 1.18. Platelet counts has been within normal range. Patient had a normal neutrophil count and WBC on 09/10, however, neutropenia was noticed on admission. No fevers. Continue to monitor. Peripheral smear revealed polychromasia, otherwise unremarkable Continue prophylactic acyclovir, fluconazole, and levofloxacin EBV and CMV negative # Prior CVA # HTN # HLD # Hx thyroid cancer s/p thyroidectomy # Gout Hold metformin, Jardiance Continue SSI Continue home meds through NJ tube: ASA 81mg daily Simvastatin 20mg daily Allopurinol 300mg daily Elavil 12.5mg prn (used for peripheral neuropathy) Synthroid per home dosing # Urinary retention Patient states this has been an issue since spine surgery (10/23/2019) Does not tolerate straight cath well Szymanski placed 09/17 If concern for BPH contributing, Flomax may not be an option given enteral route via tube Current Activity/Mobility: BMAT Level 4 (Able to stand and walk; needs staff assist if fall risk factors identified) Fall Injury Prevention: I have discussed My Plan for Safe Activity with the patient. Diet: NPO Tubes/lines: PIV VTE prophylaxis: enoxaparin Disposition: Uncertain with expected discharge date Stable to discharge criteria (not met): Tests/procedures/consults Severe Malnutrition The patient meets the ASPEN Criteria of malnutrition based on: Energy Intake: No Change Interpretation of Weight Loss: greater than 20% 1 year Body Fat: Severe Loss Muscle Mass: Severe Loss This is in the context of Chronic Illness. Malnutrition Present Upon Admission: Yes Agree with Registered Dietitian's assessment and treatment plan: Nutrition Interventions Interventions: Enteral nutrition, Collaboration and referral of nutrition care, Provide education to increase nutrition knowledge, Provide counseling strategies to apply nutrition knowledge, Discharge and transfer of nutrition care Plan discussed with Hematology 3 Food Beverage Server, Faustino Tamez, M.B.B.S., who was present during the duncan portions of the evaluation today. [place]ematology 3 [place] [phone] with any questions. GER VIDEO * Yanna Solitario, LORNAN, LD - 09/18/2023 4:48 PM CST Nutrition Care Plan Follow Up Clinical Nutrition continues to follow patient for tube feeding recommendations/management and nutrition education/counseling ASSESSMENT Continue to provide nutritional care for Mr Lau. He was admitted with a duodenal obstruction inthe setting of lymphoma. An NJ feeding tube was successfully placed yesterday. Completed visit with patient, family, and RN today as part of face to face care. Current Nutrition (since admission): Unable to take nutrition orally. Nasojejunal tube placement was successful yesterday and tube feeds are at 30 mL/hour with a goal rate of 65 mL/hour. Nutrition education: Provided book and education to patient and Rhona regarding home tube feeds. Education will be reinforced prior to dismissal by RDN and [facility]. Tube: 16 japanese dual port tue with a jejunal tube and gastric decompression port. Tube replacement recommended: 10/18/2023 through 11/01/2023 Pertinent Labs: Last 2 results Lab Units 09/18/23 0516 09/17/23 0726 POTASSIUM mmol/L 3.5* 3.5* BUN mg/dL 8 11 CREATININE mg/dL 0.62* 0.69* ESTIMATED GFR EGFR mL/min/BSA >90 >90 Magnesium 1.2 Phosphorus: 3.3 Medications include insulin, Zofran, Effer-K, replacing magnesium IV today Current nutrition orders: Current Diet Tube feeding without oral diet -Nutren 1.5 (RTH); Feeding route: Nasojejunal; Feed options: Continuous; Starting rate (ml/hr): 20 mL/hr; Rate advancement (ml/hrs): 10 mL/hr every 12 hours; Continuous goal rate (ml/hr): 65 mL/hr; Daily goal volume ... starting at 09/17 1658 No oral nutrition, tube feeding allowed starting at 09/17 1658 Weight since admission: Height: 175 cm Admission Weight: 73.3 kg (09/14/2023) Current Weight: 73.3 kg [place] Body Weight (Calculated) : 70.2 kg BMI (Calculated): 23.9 kg/m?? Weight change since admission: 0 kg Estimated Needs: Total Calorie Needs: 2699-8968 calories/day Method to Estimate Energy Needs: kcal/kg (25-30 kcal/kg) Weight Used for Equation Calculations: 73.3 kg Total Protein Needs: 88 - 110 grams/day Method to Estimate Protein Needs (g/kg): 1.2 - 1.5 gm/kg Weight Used to Calculate Protein Needs (Kg): 73.3 kg Nutrition Diagnosis: Altered GI function related to duodenal obstruction 2/2 known malignancy as evidenced by need for nutrition support w/ NJ tube placement w/ gastric decompression port. Malnutrition (undernutrition) related to side effects from treatment as evidenced by severe fat/muscle loss, weight loss of > 20% in less than one year PLAN Nutrition Intervention: Enteral nutrition, Collaboration and referral of nutrition care, Provide education to increase nutrition knowledge, Provide counseling strategies to apply nutrition knowledge,Discharge and transfer of nutrition care Nutrition parameter to monitor: Diet Progression/NPO Status, Enteral, Weight Status, Comparative Standards, Pertinent Labs, Nausea/Vomiting/Diarrhea ASPEN Criteria Malnutrition Status: Severe Malnutrition Recommendations: Continue gradual increase in enteral feeding rate as tolerated to goal of 65 mL/hour. [place] will provide equipment and formula closer to time of discharge Continue daily electrolytes and replace as indicated Consider physical therapy consult Clinical Nutrition will continue to follow. For questions about patient's nutritional care please contact pager [phone] on weekdays 07:30-16:00 or [phone] on weekends/holidays. GER VIDEO * Faustino Nuñez M.B.BJohannaS. - 09/18/2023 2:01 PM CST SUBJECTIVE Assisted by Dr. Abilio Goodson I visited Mr. Lau and reviewed my recommendations with him. I reviewed his care in detail with the Hem 3 Service; and I agree with Dr. Goodson's note dated September 18, 2023. HISTORY OF PRESENT ILLNESS Mr. 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 Sixth cycle was omitted late August because of cytopenias. He presented with symptoms of duodenal obstruction. S/p EGD and NJ tube placement on 09/17. Reviewed EGD findings OBJECTIVE PHYSICAL EXAMINATION General: Lying in bed with NG in place. DIAGNOSTICS Laboratory studies reviewed. ASSESSMENT / PLAN #1 Duodenal obstruction with history of diffuse large B-cell lymphoma S/P EGD and NJ placement. Follow biopsy results #2 Severe Neutropenia We will monitor closely. #3 Malnutrition GER VIDEO * Dave Oneil, Pharm.D., R.Ph. - 09/18/2023 11:13 AM CST Pharmacist Progress Note 72 y.o. male with DLBCL admitted for abdominal pain. PMH: T2DM, CKD stage 2, TIA (2002), gout, hypertension, and hyperlipidemia , CONNIE on CPAP, arthritis OBJECTIVE Home medications Held: metformin, empagliflozin, aspirin, simvastatin, allopurinol, levothyroxine, amitriptyline VTE prophylaxis: SQH - consider changing to enoxaparin given adequate renal function to lessen frequency of injections GI prophylaxis: none Antimicrobial prophylaxis: Levaquin, Acyclovir, and Caspofungin Hem/Onc History, Therapy Summary # DLBCL (dx 05/14/2023) 05/2023 Methylprednisolone, Rituximab 05/21/2023-08/2023: Preston-R-CHP 08/12/23: C5D1 C6 postponed for anemia ASSESSMENT / PLAN #Duodenal obstruction NG tube 09/17: EGD with NJ tube placed; biopsies pending Meds changed to be given via tube Changes to medications anticipated at discharge: New: TBD Changes: TBD Discontinue: TBD Rx approval pending: none Dispo: TBD Dave Oneil Pharm.D., R.Ph. The recommendations contained in this note are based on information available at the time of documentation and may not reflect changes in the care plan discussed after the time of signing. GER VIDEO * Dionte Leggett M.B.B.S. - 09/18/2023 7:40 AM CST General Surgery Progress Note Subjective: No acute events overnight. Had a nasal jejunal tube with the gastric port placed yesterday by GI. [place]port had around 200 cc of bilious output in the canister. Tube feeds have been started an air currently running at 20 cc/hour. He has been tolerating this without any nausea or vomiting. No abdominalpain. He is able to pass flatus but still no bowel movements. Objective: BP 137/74 (BP Location: Left arm;Upper, Patient Position: Semi-recumbent) Pulse 82 Temp 36.9 ??C (Oral) Resp 16 Ht 175 cm Wt 73.3 kg SpO2 95% BMI 23.93 kg/m?? Physical exam: General: AAOx3. NAD. NG tube in place with the gastric port on suction. CV: RRR Pulm: Non labored breathing Abdomen: Soft, nondistended, nontender. Assessment/plan: 72-year-old gentleman currently admitted to the hematology/oncology service with diffuse large B-cell lymphoma status post 5 of 6 cycles of Preston-R-CHP with a good response. 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 Feeding tube in place, he has been started on tube feeds which are currently running at 20 cc an hour. He complains of some abdominal tightness but no nausea or vomiting or zulma abdominal pain. On exam his bilious soft and completely benign. The gastric port of the tube has been placed to suction and has low volume bilious output. The home enteral nutrition team has been consulted for home tube feeds which is totally appropriate. The obstructing mass in the duodenum was biopsied, results were still pending which would dictate whether he needs further chemotherapy or not. The patient can be seen in Dr. Hamilton' outpatient Clinic after 4 weeks for surgical planning if the patient does not require chemotherapy. If chemotherapy is indicated, then would be preferable to see the patient 4 weeks after the last dose of chemotherapy. -Awaiting duodenal biopsy results -Will follow-up outpatient with Dr. Hamilton after 4 weeks if no chemotherapy is indicated for surgical planning -if chemotherapy is indicated, we will follow-up in the outpatient setting 4 weeks after the last dose of chemotherapy -We will follow the results of the biopsy and arrange outpatient follow-up as necessary Please reach out the [facility] Chief team with any questions or concerns at [phone] or [phone]. The patient was seen and discussed with Dr. Hamilton. GER VIDEO * Abilio Goodson M.D. - 09/18/2023 7:30 AM CST Images from the original note were not included. HEMATOLOGY 3 SERVICE Primary map plotter: Dr. Claudio SUBJECTIVE - Overnight, patient endorsed worsening abdominal pain so TF were stopped. Symptoms did not improveso G port was put back on suction. TF then restarted. Disconnected from suction later in the morning. - Patient endorsed being worried about going up on TF rate OBJECTIVE VITAL SIGNS Temperature: [36.4 ??C-36.9 ??C] 36.8 ??C Heart Rate: [80-84] 80 Resp Rate: [12-22] 16 Blood Pressure: (121-158)/(73-89) 144/79 SpO2: [88 %-98 %] 96 % Pulse Rate: [74-92] 83 PHYSICAL EXAM General: Well appearing, no acute distress. HEENT: NC/AT. No scleral icterus. NJT in place. Cardiac: RRR with soft systolic ejection murmur. Pulmonary: CTAB in anterior lung atkinson. Abdomen: Soft, nondistended. Nontender. Skin: No acute rashes. On the feet there are ulcerations on the right great toe and the left foot that are nontender without purulence, tenderness or fluctuance (he says these are chronic and improving). Extremities: Warm and well perfused. No lower extremity edema. Recent Labs 09/18/23 0516 09/17/23 0726 09/16/23 0801 09/15/23 0505 09/14/232013 HGB 10.1 L 9.2 L 9.4 L 8.6 L 8.5 L WBC 1.4 L 1.1 L 1.2 L 1.6 L 1.6 L PLT 190 170 193 172 168 Recent Labs 09/18/23 0516 09/17/23 0726 09/16/23 0801 09/15/23 0505 09/14/23201309/04/23 1013 NA 138 134 L 139 139 136 138 KSERUM 3.5 L 3.5 L 3.9 3.8 -- 3.5 L KPLASMA -- -- -- -- 4.0 -- CL 99 97 L 99 101 99 104 BICARB 29 28 24 28 28 26 BUN 8 11 16 13 17 17 CREATININE 0.62 L 0.69 L 0.79 0.72 L 0.68 L 0.75 ASSESSMENT / PLAN Mr. Hola Lau is a 72 y.o. 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 He was due for the 6th cycle on 09/03, which was postponed to 09/17 due to cytopenia. He presented to the hospital for abdominal pain, nausea and 5 episodes of emesis with CT evidence of recurrent duodenal obstruction in the 3rd segment of duodenum at the area of known lymphomatous involvement with no perforation. Differential diagnoses include duodenal obstruction secondary to scartissue formation vs lymphoma. Symptoms are significantly relieved after NG tube placement for suctioning. He underwent EGD-guided NJ tube + G port for decompression placement on 09/17. Plan for today: - Biopsies from EGD pending, will expedite results if possible - Will update General Surgery regarding chemotherapy plan from Dr. Claudio. Patient will be seen by Dr. Hamilton in 4 weeks if no chemotherapy is indicated, otherwise 4 weeks after last dose of chemotherapy. - Uptitrate TF to goal - Wean from suction as tolerated # Duodenal obstruction 2/2 known malignancy vs stricture s/p NJ tube placement # Double expressor germinal center DLBCL on treatment with Preston-R-CHP - See above - LDH 215 on admission - Appreciate Surgery consultation: - Ultimately he will require drainage procedure ideally after neutropenia resolves and completion of the 6th cycle - Surgery needs to wait at least 4 weeks after chemo and no chemotherapy in 6 weeks after surgery # Normocytic anemia # Neutropenia - Normocytic anemia has improved since last cycle of chemotherapy. Hemoglobin has been stable over past few days in the range of 8-9. Reticulocyte index 1.18. - Platelet counts has been within normal range. - Patient had a normal neutrophil count and WBC on 09/10, however, neutropenia was noticed on admission. No fevers. Continue to monitor. - Peripheral smear revealed polychromasia, otherwise unremarkable - Continue daily CBC with differentials - Continue prophylactic acyclovir, fluconazole, and levofloxacin - EBV and CMV pending # Prior CVA # HTN # HLD # Hx thyroid cancer s/p thyroidectomy # Gout - Hold metformin, Jardiance - Continue SSI - Continue home meds through NJ tube: - ASA 81mg daily - Simvastatin 20mg daily - Allopurinol 300mg daily - Elavil 12.5mg prn (used for peripheral neuropathy) - Synthroid per home dosing # Urinary retention - Patient states this has been an issue since spine surgery (10/23/2019) - Does not tolerate straight cath well - Szymanski placed 09/17 - If concern for BPH contributing, Flomax may not be an option given enteral route via tube Current Activity/Mobility: BMAT Level 4 (Able to stand and walk; needs staff assist if fall risk factors identified) Fall Injury Prevention: I have discussed My Plan for Safe Activity with the patient. Diet: NPO Tubes/lines: PIV VTE prophylaxis: heparin Disposition: Uncertain with expected discharge date Stable to discharge criteria (not met): Tests/procedures/consults Severe Malnutrition The patient meets the ASPEN Criteria of malnutrition based on: Energy Intake: No Change Interpretation of Weight Loss: greater than 20% 1 year Body Fat: Severe Loss Muscle Mass: Severe Loss This is in the context of Chronic Illness. Malnutrition Present Upon Admission: Yes Agree with Registered Dietitian's assessment and treatment plan: Nutrition Interventions Interventions: Enteral nutrition, Collaboration and referral of nutrition care, Provide education to increase nutrition knowledge, Provide counseling strategies to apply nutrition knowledge, Discharge and transfer of nutrition care Plan discussed with Hematology 3 Food Beverage Server, Faustino Tamez M.B.B.S., who was present during the duncan portions of the evaluation today. [place] 3 [place] [phone] with any questions. GER VIDEO * Faustino Nuñez M.B.B.S. - 09/17/2023 2:50 PM CST SUBJECTIVE Assisted by Dr. Abilio Goodson I visited Mr. Lau and reviewed my recommendations with him. I reviewed his care in detail with the Hem 3 Service; and I agree with Dr. Goodson's note dated September 17, 2023. HISTORY OF PRESENT ILLNESS Mr. 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 Sixth cycle was omitted late August because of cytopenias. He presented with symptoms of duodenal obstruction. He is improved with NG tube placement. Plan is for an EGD and NJ tube placement. C/o neck pain this morning OBJECTIVE PHYSICAL EXAMINATION General: Lying in bed with NG in place. DIAGNOSTICS Laboratory studies reviewed. ASSESSMENT / PLAN #1 Duodenal obstruction with history of diffuse large B-cell lymphoma Plan is for EGD and biopsy tomorrow. He will have an NJ tube placed for relief of symptoms. We reviewed his care with Dr. Claudio and at this time suspicion for recurrent lymphoma is low and will defer chemotherapy. #2 Severe Neutropenia We will monitor closely. #3 Malnutrition GER VIDEO * Abilio Goodson M.D. - 09/17/2023 7:14 AM CST Images from the original note were not included. HEMATOLOGY 3 SERVICE Primary map plotter: Dr. Claudio SUBJECTIVE - Declined straight cath overnight despite >300cc retention on bladder scan - Developed 8/10 neck pain, seems to be positional/MSK, heat pad and Voltaren ordered - This AM, endorsed no major complaints. Denied abdominal discomfort. Passing gas. Had BM yesterday. Continues to have output from NG tube. Did have significant pain with straight cath later in the day and opted for Szymanski. OBJECTIVE VITAL SIGNS Temperature: [36.5 ??C-36.8 ??C] 36.7 ??C Resp Rate: [14-16] 16 Blood Pressure: (133-140)/(69-77) 138/69 SpO2: [94 %-99 %] 96 % Height: [175 cm] 175 cm Weight: [73.3 kg] 73.3 kg BSA (Calculated - sq m): [1.89 sq meters] 1.89 sq meters BMI (Calculated): [23.9 kg/m??] 23.9 kg/m?? Pulse Rate: [81-90] 82 PHYSICAL EXAM General: Well appearing, no acute distress. HEENT: NC/AT. No scleral icterus. NGT in place. Cardiac: RRR with soft systolic ejection murmur. Pulmonary: CTAB in anterior lung atkinson. Abdomen: Soft, nondistended. Diffuse tenderness, mild, no rebound/guarding. Overactive bowel sounds. Skin: No acute rashes. On the feet there are ulcerations on the right great toe and the left foot that are nontender without purulence, tenderness or fluctuance (he says these are chronic and improving). Extremities: Warm and well perfused. No lower extremity edema. Recent Labs 09/17/23 0726 09/16/23 0801 09/15/23 0505 09/14/23201309/10/23 0744 HGB 9.2 L 9.4 L 8.6 L 8.5 L 8.8 L WBC 1.1 L 1.2 L 1.6 L 1.6 L 3.7 PLT 170 193 172 168 169 Recent Labs 09/17/23 0726 09/16/23 0801 09/15/23 0505 09/14/23201309/04/23 1013 NA 134 L 139 139 136 138 KSERUM 3.5 L 3.9 3.8 -- 3.5 L KPLASMA -- -- -- 4.0 -- CL 97 L 99 101 99 104 BICARB 28 24 28 28 26 BUN 11 16 13 17 17 CREATININE 0.69 L 0.79 0.72 L 0.68 L 0.75 ASSESSMENT / PLAN Mr. Hola Lau is a 72 y.o. male with double expressor germinal center DLBCL (diagnosed 05/14/2023) s/p 5 cycles of Preston-R-CHP (last cycle 08/12) with good response. He was due for the 6th cycle on 09/03, which was postponed to 09/17 due to cytopenia. He presented to the hospital for abdominal pain, nausea and 5 episodes of emesis with CT evidence of recurrent duodenal obstruction in the 3rd segment of duodenum at the area of known lymphomatous involvement with no perforation. Differential diagnoses include duodenal obstruction secondary to scartissue formation vs lymphoma. Symptoms are significantly relieved after NG tube placement for suctioning. Plan for today: - EGD for NJ tube + G port for decompression today - General surgery following, appreciate recs - Continue mIVF with dextrose - TF to start once NJ placed - SQH heparin held for EGD # Duodenal obstruction / known malignancy vs stricture # Double expressor germinal center DLBCL on treatment with Preston-R-CHP - LDH 215 on admission - NGT placed, keep at LIS - D5W LR 100 cc/hr while NPO - Appreciate Surgery consultation: - Daily abdominal x-ray - Continue NG tube decompression - EGD guided NJ-tube placement with gastric decompression port (scheduled today at 2:15 pm) - Ultimately he will require drainage procedure ideally after neutropenia resolves and completion of the 6th cycle - Surgery needs to wait at least 4 weeks after chemo and no chemotherapy in 6 weeks after surgery # Normocytic anemia # Neutropenia - Normocytic anemia has improved since last cycle of chemotherapy. Hemoglobin has been stable over past few days in the range of 8-9. Reticulocyte index 1.18. - Platelet counts has been within normal range. - Patient had a normal neutrophil count and WBC on 09/10, however, neutropenia was noticed on admission. No fevers. Continue to monitor. - Peripheral smear revealed polychromasia, otherwise unremarkable - Continue daily CBC with differentials - Continue prophylactic acyclovir, fluconazole, and levofloxacin - EBV and CMV pending # Prior CVA # HTN # HLD # Hx thyroid cancer s/p thyroidectomy # Gout - Hold metformin, Jardiance - Continue SSI - Hold the following home meds until able to tolerate PO intake: - ASA 81mg daily - Simvastatin 20mg daily - Allopurinol 300mg daily - Elavil 12.5mg prn (used for peripheral neuropathy) - Synthroid - if obstruction does not resolve in next day or two consideration of transitioning to IV synthroid # Urinary retention - Patient states this has been an issue since spine surgery (10/23/2019) - Does not tolerate straight cath well - Szymanski placed 09/17 - If concern for BPH contributing, Flomax may not be an option given enteral route via tube Current Activity/Mobility: BMAT Level 4 (Able to stand and walk; needs staff assist if fall risk factors identified) Fall Injury Prevention: I have discussed My Plan for Safe Activity with the patient. Diet: NPO Tubes/lines: PIV VTE prophylaxis: heparin Disposition: Uncertain with expected discharge date Stable to discharge criteria (not met): Tests/procedures/consults Severe Malnutrition The patient meets the ASPEN Criteria of malnutrition based on: Energy Intake: No Change Interpretation of Weight Loss: greater than 20% 1 year Body Fat: Severe Loss Muscle Mass: Severe Loss This is in the context of Chronic Illness. Malnutrition Present Upon Admission: Yes Agree with Registered Dietitian's assessment and treatment plan: Nutrition Interventions Interventions: Enteral nutrition, Collaboration and referral of nutrition care, Provide education to increase nutrition knowledge, Provide counseling strategies to apply nutrition knowledge, Discharge and transfer of nutrition care Plan discussed with Hematology 3 Food Beverage Server, Faustino Tamez M.B.B.SJohanna, who was present during the duncan portions of the evaluation today. [place] Hematology 3 [place] [phone] with any questions. GER VIDEO * Dionte Leggett M.B.BJohannaSJohanna - 09/17/2023 5:33 AM CST General Surgery Progress Note Subjective: No acute events overnight. NG tube in place with over 1L of output which appears bilious. No abdominal pain. He is able to pass flatus but no bowel movements in the past 24 hours. Objective: BP 134/72 (BP Location: Left arm;Upper, Patient Position: Lying) Pulse 81 Temp 36.6 ??C (Oral) Resp 16 Ht 175 cm Wt 73.3 kg SpO2 94% BMI 23.93 kg/m?? Physical exam: General: AAOx3. NAD CV: RRR Pulm: Non labored breathing Abdomen: Soft, nondistended, nontender. Assessment/plan: 72-year-old gentleman currently admitted to the hematology/oncology service with diffuse large B-cell lymphoma status post 5 of 6 cycles of Preston-R-CHP with a good response. 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 The patient had an EGD with biopsy and a feeding tube was placed today. The patient may be initiated on tube feeds as per primary team. After discussion with Dr. Hamilton yesterday, the patient will be seen in the Surgical Oncology outpatient clinic after approximately 1 month to allow his cell countsto recover to undergo planning for a surgical bypass. -Can initiate tube feeds as per primary team -No indication for surgery at this time -Will follow-up outpatient with Dr. Hamilton after 4 weeks for surgical planning Please reach out the [facility] Chief team with any questions or concerns at [phone] or [phone]. The patient was seen and discussed with Dr. Hamilton. GER VIDEO * Faustino Nuñez M.B.B.S. - 09/16/2023 3:35 PM CST SUBJECTIVE Assisted by Dr. Clare Cuevas. I visited Mr. Lau and reviewed my recommendations with him. I reviewed his care in detail with the Hem 3 Service; and I agree with Dr. Cuevas's note dated September 16, 2023. HISTORY OF PRESENT ILLNESS Mr. 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 Sixth cycle was omitted late August because of cytopenias. He presented with symptoms of duodenal obstruction. He is improved with NG tube placement. Plan is for an EGD and NJ tube placement. This morning he has difficulties with urination secondary to BPH. OBJECTIVE PHYSICAL EXAMINATION General: Lying in bed with NG in place. Rest per Dr. Cuevas. DIAGNOSTICS Laboratory studies reviewed. ASSESSMENT / PLAN #1 Duodenal obstruction with history of diffuse large B-cell lymphoma Plan is for EGD and biopsy tomorrow. He will have an NJ tube placed for relief of symptoms. We reviewed his care with Dr. Claudio and at this time suspicion for recurrent lymphoma is low and will defer chemotherapy. #2 Neutropenia We will monitor closely. Ana Pollock CT CT Job ID: [id number] GER VIDEO * Dave Oneil Pharm.D., R.Ph. - 09/16/2023 11:54 AM CST Pharmacist Progress Note 72 y.o. male with DLBCL admitted for abdominal pain. PMH: T2DM, CKD stage 2, TIA (2002), gout, hypertension, and hyperlipidemia , CONNIE on CPAP, arthritis OBJECTIVE Home medications Held: metformin, empagliflozin, aspirin, simvastatin, allopurinol, levothyroxine, amitriptyline VTE prophylaxis: SQH - holding until 18 PM due to EGD GI prophylaxis: none Antimicrobial prophylaxis: Levaquin, Acyclovir, and Caspofungin Hem/Onc History, Therapy Summary # DLBCL (dx 05/14/2023) 05/2023 Methylprednisolone, Rituximab 05/21/2023-08/2023: Preston-R-CHP 08/12/23: C5D1 C6 postponed for anemia ASSESSMENT / PLAN #Duodenal obstruction NG tube 09/16: EGD for NJ tube placement Holding PO meds until able to tolerate oral intake Changes to medications anticipated at discharge: New: TBD Changes: TBD Discontinue: TBD Rx approval pending: none Dispo: TBD Dave Oneil Pharm.D., R.Ph. The recommendations contained in this note are based on information available at the time of documentation and may not reflect changes in the care plan discussed after the time of signing. GER VIDEO * Clare Cuevas M.D. - 09/16/2023 10:05 AM CST Images from the original note were not included. HEMATOLOGY 3 SERVICE Primary map plotter: Dr. Claudio SUBJECTIVE Mr. Lau reports feeling much better after NG tube placement. His symptoms started on Saturday with epigastric discomfort. It got worse yesterday after he had breakfast around 9:30 a.m. with worsening abdominal pain, nausea, and 4 episodes of emesis. Today, patient denies abdominal pain, nausea and vomiting. He reports urinary frequency with decreased volume every time he urinates in the setting of known chronic urinary outlet obstruction likely 2/2 BPH. He reports symptoms worse from his baseline. OBJECTIVE VITAL SIGNS Temperature: [36.3 ??C-36.8 ??C] 36.8 ??C Resp Rate: [12-16] 13 Blood Pressure: (127-139)/(73-90) 127/73 SpO2: [94 %-99 %] 99 % Pulse Rate: [80-107] 83 PHYSICAL EXAM General: Well appearing, no acute distress. HEENT: NC/AT. No scleral icterus. NGT in place. Cardiac: RRR with soft systolic ejection murmur. Pulmonary: CTAB in anterior lung atkinson. Abdomen: Soft, nondistended. Tenderness to palpation of right lower quadrant with no guarding or rebound tenderness. Overactive bowel sounds. Skin: No acute rashes. On the feet there are ulcerations on the right great toe and the left foot that are nontender without purulence, tenderness or fluctuance (he says these are chronic and improving). Extremities: Warm and well perfused. No lower extremity edema. Recent Labs 09/16/23 0801 09/15/23 0505 09/14/23201309/10/23 0744 09/04/23 1014 HGB 9.4 L 8.6 L 8.5 L 8.8 L 7.2 L WBC 1.2 L 1.6 L 1.6 L 3.7 8.1 PLT 193 172 168 169 222 Recent Labs 09/15/23 0505 09/14/23201309/04/23 1013 NA 139 136 138 KSERUM 3.8 -- 3.5 L KPLASMA -- 4.0 -- CL 101 99 104 BICARB 28 28 26 BUN 13 17 17 CREATININE 0.72 L 0.68 L 0.75 ASSESSMENT / PLAN Mr. Hola Lau is a 72 y.o. 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 He was due for the 6th cycle on 09/03, which was postponed to 09/17 due to cytopenia. He presented to the hospital for abdominal pain, nausea and 5 episodes of emesis with CT evidence of recurrent duodenal obstruction in the 3rd segment of duodenum at the area of known lymphomatous involvement with no perforation. Differential diagnoses include duodenal obstruction secondary to scar tissue formation vs lymphoma. Symptoms are significantly relieved after NG tube placement for suctioning. 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 Hemoglobin has been stable over past few days in the range of 8-9. Reticulocyte index 1.18. Platelet counts has been within normal range. Patient had a normal neutrophil count and WBC on 09/10, however, neutropenia was noticed on admission. Given the relatively acute onset of neutropenia, I suspect it was related to his acute illness, such as viral gastroenteritis. Peripheral smear revealed polychromasia, otherwise unremarkable - continue daily CBC with differentials - continue prophylactic acyclovir, fluconazole, and levofloxacin - EBV and CMV # Prior CVA # HTN # HLD # Hx thyroid cancer s/p thyroidectomy # Gout - Hold metformin, Jardiance - continue SSI - Hold the following home meds until able to tolerate PO intake: - ASA 81mg daily - Simvastatin 20mg daily - Allopurinol 300mg daily - Elavil 12.5mg prn (used for peripheral neuropathy) - Synthroid - if obstruction does not resolve in next day or two consideration of transitioning to IV synthroid Current Activity/Mobility: BMAT Level 4 (Able to stand and walk; needs staff assist if fall risk factors identified) Fall Injury Prevention: I have discussed My Plan for Safe Activity with the patient. Diet: NPO Tubes/lines: PIV VTE prophylaxis: heparin Disposition: Uncertain with expected discharge date Stable to discharge criteria (not met): Tests/procedures/consults Plan discussed with Hematology 3 Food Beverage Server, Faustino Tamez M.B.B.S., who was present during the duncan portions of the evaluation today. [place] 3 [place] [phone] with any questions. GER VIDEO * Dionte Leggett M.B.B.S. - 09/16/2023 7:36 AM CST General Surgery Progress Note Subjective: No acute events overnight. NG tube in place with over 1L of output which appears bilious. No abdominal pain. His able to pass flatus but no bowel movements in the past 24 hours. Objective: BP 139/79 (BP Location: Left arm;Upper, Patient Position: Lying) Pulse 102 Temp 36.8 ??C (Oral) Resp 13 Ht 175 cm Wt 73.3 kg SpO2 95% BMI 23.93 kg/m?? Physical exam: General: AAOx3. NAD CV: RRR Pulm: Non labored breathing Abdomen: Soft, nondistended, nontender. Assessment/plan: 72-year-old gentleman currently admitted to the hematology/oncology service with diffuse large B-cell lymphoma status post 5 of 6 cycles of Preston-R-CHP with a good response. 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 Symptoms improved significantly since an NG-tube was placed. A still passing flatus but has not had a bowel movement yet. NG tube output isstill fairly high at 1 L in the past 24 hours. Urine output has been appropriate, he is on maintenance IV fluids. At this point, there was no urgent indication for surgical intervention. We recommend proceeding with the previously stated plan of NJ tube placement with a gastric decompression port with our gastroenterology colleagues. Once the tube is placed, the patient can be started on tube feeds per primaryService. Gastric port can be left to gravity for symptomatic relief. After discussion with the primary team, they are still waiting to hear back from his primary map plotter regarding the possibility of proceeding with the last cycle of chemotherapy versus administering steroids. Either way, it would be best to wait for a few weeks following the last dose of cytotoxic chemotherapy for his cell counts to recover before proceeding with any kind of surgical intervention. Proceeding with surgery before chemotherapy is complete would delay any remaining cycles for at least 6 weeks to allow recovery from surgery. -NJ tube placement with gastric decompression port -Can initiate tube feeds as per primary team -Gastric port to gravity for symptomatic relief -No indication for surgery at this time Please reach out the [facility] Chief team with any questions or concerns at [phone] or [phone]. GER VIDEO * Stacey Rai M.B.BJohannaS. - 09/15/2023 2:44 PM CST I saw and evaluated the patient, participating in the duncan portions of the service. I reviewed the resident/fellow???s note. I agree with the resident/fellow???s findings and plan. Mr. Lau is a 72-year-old male with DLBCL diagnosed in May 2023 after presenting with weight loss nausea vomiting. Imaging demonstrated a duodenal mass. This was biopsied and confirmed to involved with B-cell lymphoma. PET scan demonstrated primary duodenal mass with uptake in several lymph nodes not contiguous with the duodenum. During his initial hospitalization here in May, he had NJ tube placed, received 4 doses of IV methylprednisolone, started on Preston RCHP. He had a Deauville 3 response after 4 cycles. He proceeded with cycle 5 in August with a 20% dose reduction. He had an EGD around then August 13 which demonstrated ulcerated duodenal stenosis in the 3rd portion o f duodenum not traversed due to limited scope length but no active bleeding or high-risk stigmata. He was seen in the lymphoma clinic on September 04, cycle 6 was not administered due to cytopenias and performance status. He presents to the emergency room with abdominal distension and nausea and vomiting starting from Saturday. CT demonstrated dilation of the proximal duodenum and stomach due to obstruction from duodenal malignancy in the 3rd segment of the duodenum without evidence for perforation. NG tube was placed with significant symptomatic relief. This morning he is bedside and has much less discomfort, less vomiting, mild tenderness to the epigastrium. We had general surgery review his case and they recommend bypass surgery ultimately to bypass stricture in the duodenum with jejunal duodenostomy. This will have to be deferred either after his last cycle of chemotherapy or once counts recover. Labs reviewed he is neutropenic neutrophils 0.49 white count 1.6 platelets 142 hemoglobin stable 8.6, electrolytes reviewed. 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 Lau presents with acute obstruction secondary to residual disease/stricture/ stenosis of the duodenum. This obstruction was also present on his recent EGD in August. He has had symptomatic relief with NG tube placement. Ultimately he will need an NJ tube with gastric port and we will have our GI colleagues consulted for placement and also to consider EGD with repeat biopsy if necessary.I will hold on giving any steroids right now. We appreciate the consultation of her colleagues fromsurgery who would like to do some sort of bypass procedure once his counts have improved or once heis completed chemotherapy. Given the cytopenias which are relatively acute we have gotten blood cultures, we should also get some viral studies EBV CMV given the cytopenias and he has not recently received chemotherapy. We will treat with fluconazole Levaquin and acyclovir for prophylaxis. If he fevers, will start broad spectrum antimicrobials but will hold for now given that he has not demonstrated any infectious symptoms. Rest as per Dr Cuevas GER VIDEO * Clare Cuevas M.D. - 09/15/2023 12:03 PM CST Images from the original note were not included. HEMATOLOGY 3 SERVICE Primary map plotter: Dr. Claudio SUBJECTIVE Mr. Lau reports feeling much better after NG tube placement. His symptoms started on Saturday with epigastric discomfort. It got worse yesterday after he had breakfast around 9:30 a.m. with worsening abdominal pain, nausea, and 4 episodes of emesis. He has also stopped passing gas and having bowel movements since yesterday. OBJECTIVE VITAL SIGNS Temperature: [36.2 ??C-36.7 ??C] 36.4 ??C Heart Rate: [75-84] 75 Resp Rate: [10-19] 15 Blood Pressure: (110-146)/(65-83) 127/75 SpO2: [94 %-99 %] 94 % Height: [175 cm] 175 cm Weight: [73.3 kg] 73.3 kg BSA (Calculated - sq m): [1.89 sq meters] 1.89 sq meters BMI (Calculated): [23.9 kg/m??] 23.9 kg/m?? Pulse Rate: [70-99] 80 PHYSICAL EXAM General: Well appearing, no acute distress. HEENT: NC/AT. No scleral icterus. NGT in place. Cardiac: RRR with soft systolic ejection murmur. Pulmonary: CTAB in anterior lung atkinson. Abdomen: Soft, nondistended. Tenderness to palpation of right lower quadrant with no guarding or rebound tenderness. Overactive bowel sounds. Skin: No acute rashes. On the feet there are ulcerations on the right great toe and the left foot that are nontender without purulence, tenderness or fluctuance (he says these are chronic and improving). Extremities: Warm and well perfused. No lower extremity edema. ASSESSMENT / PLAN Mr. Hola Lau is a 72 y.o. 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 He was due for the 6th cycle on 09/03, which was postponed to 09/17 due to cytopenia. He presented to the hospital for abdominal pain, nausea and 5 episodes of emesis with CT evidence of recurrent duodenal obstruction in the 3rd segment of duodenum at the area of known lymphomatous involvement with no perforation. Differential diagnoses include duodenal obstruction secondary to scar tissue formation vs lymphoma. Symptoms are significantly relieved after NG tube placement for suctioning. # Duodenal obstruction 2/2 known malignancy # Double expressor germinal center DLBCL on treatment with Preston-R-CHP LDH 215 on admission - NGT placed, keep at LIS - LR 50 cc/hr - NPO - Repeat abdominal xray in morning: Decreased gastric gaseous distention - Check magnesium - Appreciate Surgery consultation: - daily abdominal x-ray - continue NG tube decompression - EGD guided NJ-tube placement with gastric decompression port - ultimately he will require drainage procedure ideally after neutropenia resolves and completion of the 6th cycle # normocytic anemia # Neutropenia Normocytic anemia has improved since last cycle of chemotherapy. Hemoglobin has been stable over past few days in the range of 8-9. Reticulocyte index 1.18. Platelet counts has been within normal range. Patient had a normal neutrophil count and WBC on 09/10, however, neutropenia was noticed on admission. Given the relatively acute onset of neutropenia, I suspect it was related to his acute illness, such as viral gastroenteritis. Peripheral smear revealed polychromasia, otherwise unremarkable - continue daily CBC with differentials - start prophylactic acyclovir, fluconazole, and levofloxacin - EBV and CMV # Prior CVA # HTN # HLD # Hx thyroid cancer s/p thyroidectomy # Gout - Hold metformin, Jardiance - Initiate SSI - Hold the following home meds until able to tolerate PO intake: - ASA 81mg daily - Simvastatin 20mg daily - Allopurinol 300mg daily - Elavil 12.5mg prn (used for peripheral neuropathy) - Synthroid - if obstruction does not resolve in next day or two consideration of transitioning to IV synthroid Current Activity/Mobility: BMAT Level 4 (Able to stand and walk; needs staff assist if fall risk factors identified) Fall Injury Prevention: I have discussed My Plan for Safe Activity with the patient. Diet: NPO Tubes/lines: PIV VTE prophylaxis: heparin Disposition: Uncertain with expected discharge date Stable to discharge criteria (not met): Tests/procedures/consults Plan discussed with Hematology 3 Food Beverage Server, Stacey Belcher M.B.B.S., who was present during the duncan portions of the evaluation today. [place] 3 [place] [phone] with any questions. GER VIDEO documented in this encounter H&P Notes * Michelle Ac M.D. - 09/14/2023 10:34 PM CST RST HEMATOLOGY 3 Admission Note SUBJECTIVE CHIEF COMPLAINT Abdominal pain HISTORY OF PRESENT ILLNESS Mr. Hola Lau is a 72 y.o. male who presents with abdominal pain. Mr. Lau has a history of DLBCL that was diagnosed April 2023 after he presented with weight loss, nausea, vomiting abdominal pain and inability to tolerate PO intake and found to have a duodenalmass. He initiated treatment with methylprednisolone and rituximab in May 2023 and then started treatment with Preston-CHP 05/21/2023. Interim PET CT scan showed Deauville 2. His last few cycles [id number] he has required dose reduction of cytoxan and doxorubicin due to decreasing performance status. His 6th cycle was held due to anemia at the end of August 2023, thus his last treatment was 08/12/2023. He decided to present to the ER due to emesis today. He was feeling well yesterday and had his normal meals. He did have a bowel movement today. He had 4 episodes of emesis that was yellow in color but no blood. He has not been passing flatus since his episodes of vomiting. He had a bowel obstruction previously with his lymphoma and was concerned about recurrence. He denies fevers or chills, drenching night sweats, palpable lymphadenopathy, lower extremity swelling, chest pain, shortness of breath, skin rashes, bleeding or bruising or other symptoms. On arrival to the ER he is hemodynamically stable and afebrile. Work-up in the ER: Hemoglobin 8.5, leukocytes 1.6 with ANC 0.53 and platelets 168 BMP unremarkable Phos normal, uric acid 3.[address] abdomen pelvis - dilation of the proximal duodenum and stomach secondary to obstruction by the duodenal malignancy in the third segment of the duodenum. No evidence for perforation. EKG - NSR He was given 1L IVF. He had an NGT placed and put on LIS. He immediately felt better after having the NGT placed. He was admitted for further management. On arrival he feels better than when he presented to the ER. He is retired. He has a girlfriend who is his support system, Rhona. He used to work for the [email or web address].He stays fairly active. Current Outpatient Medications on File Prior to Encounter: empagliflozin (Jardiance) 10 mg tablet, Take 1 tablet (10 mg total) by mouth every morning before breakfast., 09/14/2023 predniSONE (DELTASONE) 50 mg tablet, Take 2 tablets (100 mg total) by mouth daily. Days 1 through 5of each cycle. (Prior to chemotherapy if a chemo day), Past Month acetaminophen (TYLENOL) 500 mg tablet, Take 1 tablet (500 mg total) by mouth every 6 (six) hours asneeded for mild pain or score 1-3 of 10 or moderate pain or score 4-6 of 10. allopurinoL (ZYLOPRIM) 300 mg tablet, Take 1 tablet (300 mg total) by mouth daily. amitriptyline (ELAVIL) 25 mg tablet, Administer 0.5 tablets (12.5 mg total) via small bowel tube atbedtime as needed (neuropathy). (Patient taking differently: Take 12.5 mg by mouth at bedtime as needed (neuropathy).) aspirin 81 mg chewable tablet, Chew 1 tablet (81 mg total) daily. DME CPAP, DME Order ixekizumab (TALTZ) 80 mg/mL syringe injection, Inject 1 mL (80 mg total) under the skin every 28 (twenty-eight) days. One injection per month Does not use during chemotherapy, More than a month levothyroxine (SYNTHROID, LEVOTHROID) 112 mcg tablet, Take 2 tablets (224 mcg total) by mouth everymorning before breakfast. (Patient taking differently: Take 224 mcg by mouth every morning before breakfast. 1 tablet saturday and all other days takes 2) liraglutide, weight loss, (SAXENDA) 3 mg/0.5 mL (18 mg/3 mL) injection, Inject 1.2 mg under the skin daily. HOLDNot taking during chemo (Patient not taking: Reported on 09/13/2023) metFORMIN (GLUCOPHAGE) 1,000 mg tablet, Take 1 tablet (1,000 mg total) by mouth daily with dinner. ondansetron ODT (ZOFRAN-ODT) 8 mg disintegrating tablet, Dissolve 1 tablet (8 mg total) in the mouth every 8 (eight) hours as needed for nausea or vomiting., More than a month pen needle, diabetic (UltiCare Pen Needle) 31 gauge x 5/16 needle, 1 Injection by abdominal subcutaneous route daily. simvastatin (ZOCOR) 20 mg tablet, Take 1 tablet (20 mg total) by mouth at bedtime. REVIEW OF SYSTEMS Pertinent items are noted in HPI; all other review of systems was negative. OBJECTIVE VITAL SIGNS Temperature: [36.6 ??C-36.7 ??C] 36.6 ??C Heart Rate: [75-84] 75 Resp Rate: [10-19] 19 Blood Pressure: (110-146)/(65-78) 121/69 SpO2: [94 %-99 %] 94 % Weight: [73.3 kg] 73.3 kg Pulse Rate: [70-99] 75 PHYSICAL EXAM General: Well appearing, no acute distress. HEENT: NC/AT. No scleral icterus. NGT in place. Cardiac: RRR with soft systolic ejection murmur. Pulmonary: CTAB in anterior lung atkinson. Abdomen: Soft, nontender, nondistended. Skin: No acute rashes. On the feet there are ulcerations on the right great toe and the left foot that are nontender without purulence, tenderness or fluctuance (he says these are chronic and improving). Extremities: Warm and well perfused. No lower extremity edema. ASSESSMENT / PLAN Mr. Hola Lau is a 72 y.o. male who presents with abdominal pain and found to have duodenal obstruction 2/2 lymphoma. # Duodenal obstruction 2/2 known malignancy # Double expressor germinal center DLBCL on treatment with Preston-CHP Mr. Lau presents with obstruction of his duodenum in setting of known lymphoma involving the duodenum. I discussed with radiology - they do not believe the lymphoma appears to be progressing, instead it was likely a leadpoint that was able to become obstructed given the anatomy. Given this, I do not think I need to give high dose steroids at this time. Instead, we will treat as a bowel obstruction with NGT kept at LIS, LR overnight and NPO status. I will consult surgery for recommendations of management of the obstruction for now to consider whether he may just need medical management or consideration of stent or surgery. - NGT placed, keep at LIS - LR 75cc/hr overnight - NPO - Repeat abdominal xray in morning - Check magnesium - Surgery consultation for management of obstruction - consider gastrografin challenge pending their recommendations # Anemia # Neutropenia He is now one month from finishing chemotherapy. Interestingly, 4 days ago his WBC was normal as I would anticipate as he recovered from chemotherapy. Unclear to me why he is now neutropenic and leukopenic to this degree unless it is related to his acute presentation with obstruction, he last received growth factor support on 08/13. We will obtain peripheral smear and check hemolysis labs and monitor CBC closely. He just had work-up for anemia in July including hemolysis labs and ferritin that were unrevealing. If work-up is unrevealing, could consider search for alternative etiologies such as viral infections although this seems less likely to me as a cause. We will trend the CBC. - Reticulocyte count - LDH - Peripheral smear - Haptoglobin # Prior CVA # HTN # HLD # Hx thyroid cancer s/p thyroidectomy # Gout - Hold metformin, Jardiance - Initiate SSI Hold the following home meds until able to tolerate PO intake: - ASA 81mg daily - Simvastatin 20mg daily - Allopurinol 300mg daily - Elavil 12.5mg prn (used for peripheral neuropathy) - Synthroid - if obstruction does not resolve in next day or two consideration of transitioning to IV synthroid Diet: No diet orders on file Tubes/lines: PIV VTE prophylaxis: Hold in case will be pursuing stenting or surgical management of the obstruction Code status: Full Code Baseline Mobility: BMAT Level 4 (Able to stand and walk) Disposition: Home Michelle Ac M.D. Hematology/Oncology Fellow, PGY-5 Pager [phone] GER VIDEO documented in this encounter Procedure Notes * Jad Hanks M.D. - 09/20/2023 12:37 PM CSTAssociated Order(s): Large Joint Injection: R knee joint Post-Procedure Diagnose(s): Effusion Knee Right Knee site- R knee joint : aspiration and diagnostic-therapeutic injection Performed by: Jad Hanks M.D. Authorized by: Jad Hanks M.D. Care team members present 1. Jad Hanks M.D. PROCEDURE DETAILS Indications: Effusion of knee Procedure Location knee Knee site: R knee joint Site prep: patient was prepped and draped in usual sterile fashion Patient position: supine Procedural approach: lateral Procedure [...] completed successfully: yes Complications: no apparent complications Post-procedure instructions: avoid strenuous activity for 2 days, avoid submersion of procedure site for 48 hours and post-procedure activity instructions provided Discharge instructions: ice area as needed for comfort, pain management instructions, dressing careand follow-up with ordering provider GER VIDEO documented in this encounter Consult Notes * Kayla Hall M.S., RDN, LD - 09/28/2023 1:18 PM CST RDN received page from patient's RN stating he is having severe abdominal pain with eating. Hematology 3 team is aware per RN. Nutrition Support Service following. Dr. Gordon notified via Secure Chat. Please contact ELLE Ross at pager [phone] for nutrition-related concerns. Floor RDN not following. GER VIDEO * Ricardo Stahl M.D. - 09/26/2023 11:07 AM CSTAssociated Order(s): Nutrition support service consult (hospital) SUBJECTIVE Nutrition support service consult ([facility]) Referring Provider: Sarah Reardon M.D. REASON FOR CONSULT Evaluation for long-term enteral access HISTORY OF PRESENT ILLNESS Mr. Lau is a 72 y.o. male who has medical history significant for DLBCL status post rituximab now receiving ongoing Preston-R-CHP (currently held due to anemia), HTN, HLD, prior CVA, gout, history thyroid cancer status post thyroidectomy. The patient presented to the hospital on 09/14 for abdominal pain, nausea, and emesis and was admitted for recurrent duodenal obstruction seen on CT imaging. Endoscopy was performed on 09/17 for NGJ tube placement for suctioning as well as biopsy which was negative for malignancy with obstruction attributed to stricture. Symptoms have significantly improved with gastric decompression. The currentplan is for patient to finish undergoing cancer-directed treatment before pre-surgical consult in November. The patient is currently receiving tube feeds with Nutren 1.5 50 mL/hr with 16 hours on and 8 hoursoff. This has been down titrated while advancing enteral feeds, now on mechanical soft diet with high protein, high potassium. Per discussion with the patient, he was approximately 100 kg in January 2023, which has decreased significantly since initiating cancer treatment. His current weight is 71.7 kg. Until this admission, he has maintained good p.o. intake, including 3 full meals a day, including supplementation with ensure. He is currently tolerating mechanical soft diet well, and continues to pass gas/stool. The patient was previously diagnosed with a duodenal obstruction in April of last year and had N JT placed for pump feedings -05/2023, which he tolerated well. Per interview, he is agreeable to placement of tube for feeds while awaiting surgical consultation. PAST MEDICAL HISTORY Past Medical History: Diagnosis Date Apnea Sleep [...] Apnea Stroke (HCC) Transient Ischemic Attack 2002 PAST SURGICAL HISTORY Past Surgical History: Procedure Laterality Date DECOMPRESSION SPINE - POSTERIOR LUMBAR Bilateral 10/23/2019 Procedure: L4-L5 laminectomy; Surgeon: Ricardo Saucedo M.D.; Location: [facility] EYE SURGERY 1985 cataracts HAND SURGERY 2019 tophi removal left thumb OTHER SURGICAL HISTORY ROTATOR CUFF REPAIR Bilateral THYROID SURGERY 1992 two surgeries TONSILLECTOMY 1950 VASECTOMY 1978 FAMILY HISTORY Family History Problem Relation Age of Onset Diabetes Mother Thyroid disease Mother Psoriasis Mother Diabetes Father Hypertension Father Stroke Father Thyroid disease Sister Thyroid disease Sister Thyroid disease Sister Breast cancer Sister Alcohol abuse Son Thyroid cancer Neg Hx SOCIAL HISTORY Social History Socioeconomic History Marital status: Single Spouse name: Not on file Number of children: Not on file Years of education: Not on file Highest education level: Associate degree: occupational, technical, or vocational program Occupational History Not on file Tobacco Use Smoking status: Former Packs/day: 1.00 Years: 22.00 Additional pack years: 0.00 Total pack years: 22.00 Types: Cigarettes Quit date: 02/07/1989 Years since quittin.6 Passive exposure: Never Smokeless tobacco: Former Types: Snuff, Chew Quit date: 04/18/2023 Vaping Use Vaping Use: never used Substance and Sexual Activity Alcohol use: Not Currently Alcohol/week: 3.0 standard drinks of alcohol Types: 3 Cans of beer per week Drug use: No Sexual activity: Not Currently Partners: Female Other Topics Concern Caffeine Concern No Social History Narrative Not on file Social Determinants of Health Food Insecurity: No Food Insecurity (09/15/2023) Hunger Vital Sign Worried About Running Out of Food in the Last Year: Never true Ran Out of Food in the Last Year: Never true Transportation Needs: No Transportation Needs (09/15/2023) PRAPARE - Transportation Lack of Transportation (Medical): No Lack of Transportation (Non-Medical): No Intimate Partner Violence: Not At Risk (09/15/2023) Humiliation, Afraid, Rape, and Kick questionnaire Fear of Current or Ex-Partner: No Emotionally Abused: No Physically Abused: No Sexually Abused: No Housing Stability: Low Risk (09/15/2023) Housing Stability Housing: Living Situation: I have a steady place to live REVIEW OF SYSTEMS Pertinent review of systems mentioned in the HPI. OBJECTIVE VITAL SIGNS Temperature: 36.2 ??C Resp Rate: 16 Blood Pressure: 142/71 SpO2: 98 % Weight: 71.7 kg BMI (Calculated): 23.4 kg/m?? Intake/Output Summary (Last 24 hours) at 09/26/2023 1108 Last data filed at 09/26/2023 1100 Gross per 24 hour Intake 3370 ml Output 6232 ml Net -2862 ml PHYSICAL EXAM Constitutional Appearance: Normal appearance. HENT Mouth/Throat: Mouth: Mucous membranes are dry. Pharynx: Oropharynx is clear. Eyes Extraocular Movements: Extraocular movements intact. Conjunctiva/sclera: Conjunctivae normal. Pupils: Pupils are equal, round, and reactive to light. Abdominal General: Abdomen is flat. Bowel sounds are normal. There is no distension. Palpations: Abdomen is soft. There is no mass. Tenderness: There is no abdominal tenderness. There is no guarding or rebound. Hernia: No hernia is present. Musculoskeletal Right lower leg: No edema. Left lower leg: No edema. Skin General: Skin is warm and dry. Capillary Refill: Capillary refill takes less than 2 seconds. Neurological Mental Status: He is alert. DIAGNOSTICS Labs: Results from last 7 days Lab Units 09/26/23 0550 09/23/23 0555 09/22/23 0705 09/21/23 0643 SODIUM mmol/L 136 < > 138 135 CHLORIDE mmol/L 98 < > 98 95* CREATININE mg/dL 0.67* < > 0.74 0.79 ESTIMATED GFR EGFR mL/min/BSA >90 < > >90 >90 BUN mg/dL 33* < > 29* 25* GLUCOSE S mg/dL 102 < > 197* 291* CALCIUM mg/dL 8.5* < > 8.4* 8.3* MAGNESIUM mg/dL -- -- -- 1.8 PHOSPHORUS INORGANIC mg/dL -- -- -- 3.2 ALBUMIN g/dL -- -- 2.8* -- BILIRUBIN TOTAL mg/dL -- -- <0.2 -- ALK PHOS U/L -- -- 241* -- ALT U/L -- -- 24 -- AST U/L -- -- 32 -- < > = values in this interval not displayed. Radiology: @[email or web address]@ Swallow Assessment: No data to display ASSESSMENT / PLAN #1 Obstruction Intestinal (HCC) ASSESSMENT Currently we are asked to visit with Mr. Lau for consideration of long-term enteral nutrition. Long-term tube feeding is medically appropriate if desired by patient and or surrogate decision maker. Please see required criteria, responsibilities of primary service, and post-procedure recommendations below. Criteria Required for Medicare and many third republican payers - all of the following must be met for payment of tube feeding formula and supplies post hospitalization: 1. Duration of tube feeding use three months or longer, and 2. Diagnosis that precludes food from safely going through gastrointestinal tract (e.g. dysphagia or obstruction) and or does not allow for adequate absorption (e.g., malabsorption) and documentationof diagnosis required, and 3. Tube feeding as sole source of calories. Primary Service is responsible to: 1. Review advance directives and goals of care regarding long-term nutrition as well as prognosis. 2. Estimate anticipated duration of use of tube feeding 3. Proceduralist will obtain informed consent for the tube feeding access procedure. 4. Schedule procedure which includes ordering INR/PT within 48 hours of feeding tube placement and management of anticoagulation pre-procedure. 5. Revise oral medication orders to reflect that the route of administration should change to enteral tube. Pharmacy will then provide appropriate dosage form for enteral (designate tip location) tube administration. Post- procedure Recommendation: 1. NSS master steam yacht will provide education, assess feeding tube, and consult Home Enteral Nutrition for patients who will be dismissed to home. Site Care and Nutrition Program Recommendations: 1. Please review the NSS Nurse and NSS Dietitian notes for information about site care and nutrition program recommendations. Nutrition Needs: Height: 175 cm Admission Weight: 73.3 kg (09/14/2023) Current Weight: 71.7 kg BMI (Calculated): 23.4 kg/m?? Total Calorie Needs: 6047-9698 calories/day Method to Estimate Energy Needs: kcal/kg ( ) Weight Used for Equation Calculations: 73.3 kg Total Protein Needs: 88 - 110 grams/day Method to Estimate Protein Needs (g/kg): 1.2 - 1.5 gm/kg Weight Used to Calculate Protein Needs (Kg): 73.3 kg Severe Malnutrition The patient meets the ASPEN Criteria of malnutrition based on: Energy Intake: No Change Interpretation of Weight Loss: greater than 20% 1 year Body Fat: Severe Loss Muscle Mass: Severe Loss This is in the context of Chronic Illness. Malnutrition Present Upon Admission: Yes Agree with Registered Dietitian's assessment and treatment plan: Nutrition Interventions Interventions: Enteral nutrition, Collaboration and referral of nutrition care, Provide education to increase nutrition knowledge, Provide counseling strategies to apply nutrition knowledge, Discharge and transfer of nutrition care Current Enteral Nutrition: - Nutren 1.5, 50 mL/hr x 16h - Mechanical soft diet, high protein, high potassium Plan/Recommendations: In summary, patient has been evaluated and agreeable for placement of PEG J-tube. Indication: duodenal obstruction Estimated duration of use: 3 months pending surgical assessment Additional recommendations: Please continue Nutren supplementation at current rate with mechanical soft diet while awaiting PEGplacement. Please call NSS pager at [phone] at [facility] or [phone] at [facility] with any additional questions. BILLING/CODING Total visit 45 minutes. Ricardo Stahl (Jay) [facility] PGY1 Pager: [phone] 09/26/23 GER VIDEO Associated attestation - Tee eRynolds M.D. - 09/26/2023 11:57 AM MANAGER VIDEO I saw and evaluated the patient, participating in the duncna portions of the service. I reviewed the resident/fellow???s note. I agree with the resident/fellow???s findings and plan. Mr. Lau is a 72-year-old male with history that is significant for hypertension, hyperlipidemia, prior CVA, history of thyroid cancer status post thyroidectomy, and DLBCL who has been admitted for recurrent duodenal obstruction after presenting with abdominal pain, and nausea and vomiting. He is noted to meet criteria for severe malnutrition with 20% weight loss over the last year and significant loss of muscle mass. He currently has undergone placement of nasal gastro jejunal tube and has been receiving enteral feeds through that tube. It does appear that etiology of duodenal obstructionis stricture. In this setting plan is to move forward with percutaneous TGJ. We discuss the risks, benefits, as well as alternative options regarding this plan. In terms of the risks we discussed infection, bleeding, as well as end-organ damage. We discussed the benefits of being able to provide nutrition, medications, as well as hydration. He noted that he has not been able to meet nutritional needs to oral intake resulting in significant weight loss. Therefore he was in agreement with moving ahead with T GJ placement. We would be supportive as well. * Carolee Ortega M.D. - 09/25/2023 12:41 PM CSTAssociated Order(s): IP CONSULT TO GENERAL SURGERY History and Physical Hospital Day: 12 CHIEF COMPLAINT/REASON FOR VISIT: Surgical planning SUBJECTIVE Hola Lau is a 72 y.o. 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 He was recently admitted to the hospital on 09/15 for small bowel obstruction with an NJ-tube with gastric venting port placed on 09/17. Biopsies of the stricture her been benign with no evidence of residual tumor. The patient reports that he was tolerating a regular diet until he was admitted to the hospital on 09/15. He reports that he has been tolerating tube feeds at goal, which got to goal on 09/21. He additionally reports that his physical therapist is recommending some additional rehabilitation in order to get his strength back before he could go home. 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 Denies use of blood thinners or immunomodulators including steroids. ALLERGIES/CONTRAINDICATIONS Pertinent allergies to current consultation: None. Other allergies listed below. FAMILY HISTORY Non-contributory SOCIAL HISTORY Former smoker. Full History per EMR: Past Medical History: Diagnosis Date Apnea Sleep [...] 1992 two surgeries TONSILLECTOMY 1950 VASECTOMY 1978 Current Facility-Administered Medications: acetaminophen tablet 650 mg (TYLENOL), 650 mg, small bowel tube, Q4H PRN, Jessica Darby M.B.B.S., 650 mg at 09/19/232031 acyclovir tablet 400 mg (ZOVIRAX), 400 mg, small bowel tube, BID, Abilio Goodson M.D., 400 mg at 09/25/23822 allopurinoL tablet 300 mg (ZYLOPRIM), 300 mg, small bowel tube, Daily, Abilio Goodson M.D., 300 mgat 09/25/23821 amitriptyline tablet 12.5 mg (ELAVIL), 12.5 mg, small bowel tube, At bedtime PRN, Abilio Goodson M.D., 12.5 mg at 09/19/232034 aspirin chewable tablet 81 mg, 81 mg, small bowel tube, Daily, Abilio Goodson M.D., 81 mg at 09/25/23821 dextrose 50 % injection 12.5 g, 12.5 g, intravenous, PRN, Abilio Goodson M.D. dextrose 50 % injection 25 g, 25 g, intravenous, PRN, Abilio Goodson M.D. diclofenac sodium 1 % gel 2 g (VOLTAREN), 2 g, topical, 4x Daily, Domingo Garza III, M.D., Ph.D.,2 g at 09/24/23 214 enoxaparin injection 40 mg (LOVENOX), 40 mg, subcutaneous, Q24H SUBHASH, Eugenie Sen M.D., 40 mg at 09/25/23 0823 insulin aspart U-100 injection 0-13 Units (NovoLOG FlexPen), 0-13 Units, subcutaneous, TID, Michelle Ac M.D., 4 Units at 09/25/23 1201 insulin aspart U-100 injection 0-7 Units (NovoLOG FlexPen), 0-7 Units, subcutaneous, Daily at bedtime, Brad, Betty S, M.D., 3 Units at 09/21/23 2046 insulin aspart U-100 injection 3 Units (NovoLOG FlexPen), 3 Units, subcutaneous, Daily with breakfast, Sarah Reardon M.D., 3 Units at 09/25/23 0823 insulin aspart U-100 injection 3 Units (NovoLOG FlexPen), 3 Units, subcutaneous, Daily with lunch, Sarah Reardon M.D., 3 Units at 09/25/23 1202 insulin aspart U-100 injection 3 Units (NovoLOG FlexPen), 3 Units, subcutaneous, Daily with dinner,Sarah Reardon M.D., 3 Units at 09/24/23 1817 insulin glargine injection 6 Units, 6 Units, subcutaneous, Daily at bedtime, Sarah Reardon M.D., 6 Units at 09/24/23 2143 levothyroxine tablet 112 mcg (SYNTHROID, LEVOTHROID), 112 mcg, small bowel tube, Once per day on Saturday, Abilio Goodson M.D., 112 mcg at 09/24/23 0510 levothyroxine tablet 224 mcg (SYNTHROID, LEVOTHROID), 224 mcg, small bowel tube, Once per day on Saturday, Abilio Goodson M.D., 224 mcg at 09/25/23 0515 lidocaine 5 % 1 patch (LIDODERM), 1 patch, transdermal, Daily, Jessica Darby M.B.B.S., 1 patch at 09/19/23 0808 ondansetron (PF) injection 4 mg (ZOFRAN), 4 mg, intravenous, Q6H PRN, Michelle Ac M.D. simvastatin tablet 20 mg (ZOCOR), 20 mg, small bowel tube, Daily at bedtime, Abilio Goodson M.D., 20 mg at 09/24/23 214 sodium chloride (PF) 0.9 % injection 1-100 mL, 1-100 mL, intravenous, Once, Callie Sanderson APRN, C.N.P., M.S.N. sodium chloride 0.9 % injection 10 mL, 10 mL, intravenous, PRN, Callie Rios APRN, C.N.P., M.S.N., 10 mL at 09/20/23 1824 sodium chloride 0.9 % injection 10 mL, 10 mL, intravenous, During hospitalization, Callie Sanderson APRN, C.N.P., M.S.N. [COMPLETED] Place peripheral IV: No upper extremity site restrictions, , , Once AND sodium chloride 0.9 % injection 2-10 mL, 2-10 mL, intravenous, PRN, Aris Mina P.A.-C., 10 mL at 09/20/23 0757 tamsulosin 24 hr capsule 0.4 mg (FLOMAX), 0.4 mg, oral, Daily, Melva Rodas M.D., 0.4 mg at09/25/23 0823 Facility-Administered Medications Ordered in Other Encounters: D5W infusion, 10-250 mL/hr, intravenous, PRN, Roseann Sheldon M.B., B.Ch., B.A.O. NaCl 0.9% infusion, 10-250 mL/hr, intravenous, PRN, Roseann Sheldon M.B., B.Ch., B.A.O. NaCl 0.9% infusion, 10-250 mL/hr, intravenous, PRN, Roseann Sheldon M.B., B.Ch., B.A.O. sodium chloride 0.9 % injection 10 mL, 10 mL, intravenous, During hospitalization, Roseann Sheldon M.B., B.Ch., B.A.O. Allergies Allergen Reactions Gabapentin Rash Other reaction(s): Diffuse drug eruption reports that he quit smoking about 34 years ago. His smoking use included cigarettes. He has a 22 pack-year smoking history. He has never been exposed to tobacco smoke. He quit smokeless tobacco use about 5 months ago. His smokeless tobacco use included snuff and chew. He reports that he does not currently use alcohol after a past usage of about 3.0 standard drinks of alcohol per week. He reportsthat he does not use drugs. family history includes Alcohol abuse in his son; Breast cancer in his sister; Diabetes in his father and mother; Hypertension in his father; Psoriasis in his mother; Stroke in his father; Thyroid disease in his mother, sister, sister, and sister. REVIEW OF SYSTEMS A complete 10 system review of systems was completed. Pertinent positive and negative are noted in the HPI above, all other systems were reviewed and were negative. OBJECTIVE Temperature: [36.4 ??C-37 ??C] 36.4 ??C Resp Rate: [14-16] 14 Blood Pressure: (121-146)/(66-80) 126/68 SpO2: [96 %-98 %] 98 % Pulse Rate: [89-109] 89 PHSYICAL EXAM Constitutional Appearance: Normal appearance. HENT Head: Normocephalic and atraumatic. Pulmonary Effort: Pulmonary effort is normal. Abdominal General: There is no distension. Palpations: Abdomen is soft. Tenderness: There is no abdominal tenderness. Comments: NG-JT, G port clamped. Skin General: Skin is warm and dry. Capillary Refill: Capillary refill takes less than 2 seconds. Neurological General: No focal deficit present. Mental Status: He is alert and oriented to person, place, and time. Psychiatric Mood and Affect: Mood normal. Behavior: Behavior normal. DIAGNOSTICS Please see the record for full details Recent Labs 09/25/23 0741 09/24/23 0518 HGB 9.9 L 10.0 L PLT 269 261 WBC 7.5 5.1 Recent Labs 09/25/23 0741 NA 134 L CL 97 L BUN 34 H CREATININE 0.68 L GLUCOSE 104 MICROBIOLOGY No results found for this visit on 09/14/23 (from the past 72 hour(s)). IMAGING Imaging was independently reviewed. No results found. ASSESSMENT / PLAN #1 Obstruction Intestinal (HCC) Mr. Lau is a 72M with DLBCL s/p 5 cycles of preston-R-CHOP with duodenal stricture (secondary to treatment effect) and partial SBO. General surgery had been consulted previously and recommended seeing Dr. Hamilton in follow-up once the patient was 4 weeks out from his last dose of chemotherapy, had returned to baseline functional status, and had appropriate nutrition for consideration of surgical bypass. The primary team has re-engage the surgical team today to better understand the barriers withrespect to surgical timing for his bypass. Optimally, this patient would fully recover from this hospital stay with several weeks of adequate nutrition, would be back to his functional baseline, and would have completed chemotherapy prior to this procedure. From our perspective, chemotherapy should not be delayed or held because of this obstruction, but the decision regarding completing a 6th round of chemotherapy is at the discretion of the Oncology team. We would recommend discharging the patient either on a soft diet (if tolerating soft diet at full caloric needs) plus gastric-jejunal access as a safety valve for vents/feeds if needed or discharging the patient on full tube feeds, having him work with rehab to return to his baseline functional status, and then follow-up with Dr. Hamilton in clinic as is currently scheduled. If a PEG-J is needed to facilitate discharge from the hospital, we would recommend engaging GI for this procedure and feel that this would not cause any issues with any future surgical interventions. Please reach out to [facility] Chief team with any questions concerns by paging [phone] ([facility] Chief). Plan and assessment were discussed with Dr. Lu, who was in agreement. TT: 60 minutes, CT > 50%. The patient understands and agrees with the plan of care. GER VIDEO Associated attestation - Sandra Lu M.D. - 10/04/2023 12:44 PM MANAGER VIDEO Agree with assessment. Defer definitive surgery for now. Will be better served by tube feeding to optimize nutrition. * Aleida Diego O.T., O.T.Erasmo. - 09/21/2023 9:32 AM CST Occupational Therapy Acute Hospital Inpatient Evaluation/Treatment SUBJECTIVE Patient's Name: Hola Lau Referring/Attending Provider: Faustino Nuñez M.B.B.S. Medical Diagnosis: Leukopenia [D72.819] Neutropenia (HCC) [D70.9] Obstruction Intestinal (HCC) [K56.609] Reason for Referral: Occupational Therapy Evaluation and Treatment OT Evaluate and Treat - General Acute Onset Date: 09/14/23 Payor: MEDICARE / Plan: MEDICARE A AND B / Product Type: Medicare / PERTINENT MEDICAL / SURGICAL HISTORY: Patient Active Problem List Diagnosis Malignant Neoplasm Of Thyroid Follicular (HCC) Diabetes Mellitus Type 2 With Diabetic Neuropathy (HCC) Hypertension Essential Primary Hypothyroidism 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 Radiculopathy Lumbar Fifth Right Hyperlipidemia Apnea Sleep Obstructive Chronic Kidney Disease Stage 2 Glomerular Filtration Rate 60 To 89 Foot Drop Right Spinal Stenosis Lumbar Region Without Neurogenic Claudication History Of Falling Nicotine Dependence Chewing Tobacco Nausea And Vomiting Mass Duodenum Vomiting Lymphoma Non Hodgkins (HCC) Other Correction Current Drug Therapy Hypokalemia Anemia Thrombocytopenia (HCC) Obstruction Intestinal (HCC) Past Surgical History: Procedure Laterality Date DECOMPRESSION SPINE - POSTERIOR LUMBAR Bilateral 10/23/2019 Procedure: L4-L5 laminectomy; Surgeon: Ricardo Saucedo M.D.; Location: [facility] ROM OR EYE SURGERY 1985 cataracts HAND SURGERY 2019 tophi removal left thumb OTHER SURGICAL HISTORY ROTATOR CUFF REPAIR Bilateral THYROID SURGERY 1992 two surgeries TONSILLECTOMY 1950 VASECTOMY 1978 History of Present Illness:Hola Lau is a 72 y.o. male who was admitted to [facility] in [place] on 09/14/2023 for Leukopenia, neutropenia, obstruction Intestinal. Occupational Profile: Prior Function/Occupational Profile Lives With: Significant other Receives Help From: Family ADL Assistance: Modified independent ADL Assistance Comments: Sitting to get dressed IADL/Homemaking Assistance: Required assistance IADL/Homemaking Assistance Comments: Significant other does IADLs Driving: Does not drive Driving Comments: Has not driven since April. 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 Leisure Interests: Fishing, reading, playing cards Prior Mobility/Functional Transfers Level of [place]: Modified independent Gait Devices/Wheelchair Used: Four wheeled walker, Cane Home Living Type of Home: [facility] Home Layout: One level, Able to live on main level with bedroom/bathroom, Laundry main level Home Access: Level entry Bathroom Shower/Tub: Walk-in shower Walk-in shower location: Main floor Walk-in shower enclosure type: Sliding/glass door Bathroom Toilet: Comfort height Bathroom Accessibility: Yes How Accessible: Accessible via walker Home Equipment Home Adaptive Equipment: Long-handled shoe horn Gait Devices Owned: Four-wheeled walker, Cane Other DME Equipment : Other (Comment) (adjustable bed) Bathroom Equipment: Built-in shower seat, Grab bars in shower, Grab bars around toilet, Hand-held shower head Family/Caregiver Present: Yes (Significant other Rhona) Patient/Caregiver Goals: To regain strength and independence Patient Comments: Denzel was seated in bedside chair upon therapist arrival. He was alert and orientedand agreeable to participate. He denied pain. Fall Risk (65 and older) Fall in the last 12 months: Yes (Fell walking from bathroom - transitioning from tile bathroom floor to carpeted floor. Fell again prior to admission.) Did you have an injury with the fall?: No (toenail fell off) Are you fearful of falling?: Yes Fall Risk Comments: Feels unsteady Precautions Other Precautions: right sided weakness, right foot drop, midline disorientation, follow up neuro work-up, fall risk, right knee pain, elbow pain, and neck pain OBJECTIVE Vitals not formally assessed during session. No concerns during chart review and the patient had nosigns or symptoms consistent with vital changes during therapy session. Vision/Sensation Basic Assessment Baseline Vision/Correction: Wears glasses all the time Current Hearing Function: Hearing intact Activity Tolerance Endurance: Tolerates 10-20 minutes of activity Sitting Tolerance: Within normal limits Standing Tolerance: sit<>stand x 1 rep, stand x 2 minutes Activity Tolerance Comments: Patient tolerated lower body dressing, sit<>stand and static standing well overall. Does present with retropulsive lean. Balance Static Sitting-Balance: Good (Maintains balance without support) Dynamic Sitting-Balance: Good (Maintains balance without support) Static Standing-Balance: Fair (Maintains balance with handheld/contact guard assistance), Poor (Requires assistance to maintain balance) Dynamic Standing-Balance: Poor (Requires assistance to maintain balance) Balance Comments: Poor balance in standing, with retropulsive lean. Poor balance with standing marching, challenges with putting weight through middle of foot. General ROM / Strength Screening ROM - Upper Extremity Screen: Addressed, no concerns noted ROM - Lower Extremity Screen: Impaired right ROM - Lower Extremity Screen Comments: Secondary to right knee effusion. Strength - Upper Extremity Screen: Addressed, no concerns noted Strength - Lower Extremity Screen: Impaired right & left Strength - Lower Extremity Screen Comments: Generalized weakness. Cognition Cognitive assessment method: Therapist observations Arousal/Alertness: Appropriate responses to stimuli Attention: Addressed, no concerns noted Initiation: No difficulty with initiation Orientation: Oriented X4 Following Commands: Follows all commands/directions without difficulty Cognition Comments: Patient alert and oriented. No overt cognitive deficits noted. Cognitive Intervention: Functional cognitive activities Sit to Stand Transfers # of Assistants: 1 (+ significant other) Transfer Surface: Chair Transfer Equipment: Gait belt, Front wheeled walker Level of Assistance: Minimal assistance Assessment/Delivery: Assessed, Therapist assisted, Facilitated Comments: Facilitated sit>stand from bedside chair with minimal assist of 1 plus significant other for support. Patient prefers to push with bilateral upper extremities from arm rests, then transition hands to walker. Verbal cues for appropriate foot placement and for anterior weight shift x 3 for force generation. Patient with good ability to achieve terminal hip extension and upright posture, however maintained significant retropulsive lean with weight on heels. Patient displayed difficulty adjusting left foot to allow for better weight distribution in standing. He was unable to perform dynamic functional reach in standing due to heavy reliance on bilateral upper extremities on walker. Stand to Sit Transfers # of Assistants: 1 Transfer Surface: Chair Transfer Equipment: Gait belt, Front wheeled walker Level of Assistance: Contact guard assistance Assessment/Delivery: Assessed, Facilitated Comments: Good eccentric control. Verbal cue to reach back for arm rest. Close contact guard assistfor safety. LE Dressing LE Dressing Location: Chair LE Dressing Delivery: Assessed, Facilitated, Therapist Assisted LE Dressing Items Included: Socks LE Dressing Level of Assistance: Modified independent, Supervision/Set-up, Total assistance LE Dressing Comments: Facilitated doffing and donning bilateral socks while seated in bedside chair. Patient achieved figure 4 position with right lower extremity well, and was able to doff right sock. He was unable to don right sock, as he could not maintain figure 4. He doffed left sock with modified figure 4 technique and no physical assist or cues. He was able to bend at the waist and reach down to don left sock. Therapeutic Functional Activity Position: Sitting, Standing Task Component(s): Reaching, Bending, Pulling Descriptor(s): Below the waist, Using right hand, Using left hand, Using bilateral hands Balance Demand: Static, Dynamic, Within base of support Physical Assistance Required: Supervision, Contact guard assistance, Minimal assistance, Total assistance Cuing Required: Verbal, Visual Therapeutic Functional Activity Comments: Facilitated seated lower body dressing, sit<>stand and standing weight shifting to address activity tolerance, strength, pulmonary hygiene and to progress participation in meaningful and functional occupations. Patient tolerated session well overall. He stood with minimal assist of 1-2, however displayed retropulsive lean in standing that he had difficulty correcting. He was able to doff and don socks from seated level with assistance. Education provided today: Role of OT in acute care; importance of safe mobility Team Communication: Patient's nurse was contacted and patient's status was discussed Outcome Measures [facility] Inpatient Short Form: Putting on and taking off regular lower body clothing?: A Little Putting on and taking off regular upper body clothing?: None Taking care of personal grooming such as brushing teeth?: A Little (seated with setup) Bathing (including washing, rinsing, drying)?: A lot Toileting, which includes using toilet, bedpan, or urinal?: A lot Eating meals?: A Little Daily Activities Raw Score (max 24): 17 Daily Activities Standardized Score: 37.26 Interpretation: Clinicians answer the -[facility] Inpatient Short Form based on observed patient activity and/or clinical judgement (ie. patient can be scored without physically performing each activity) Based on scoring guidelines using the raw score value: Those going to home had an average score at or above 18 Those going to facility had an average score at or below 17 Patient was left in bedside chair at end of session with call light in reach, all needs met and questions answered. Assessment Discharge Therapy Needs - OT: Ongoing skilled occupational therapy Skilled therapy can include occupational therapy provided by home health, outpatient clinic, or a post-acute facility. The location of these services is determined by the patient's care team in partnership with patient/family. Level of Care Needed - OT: Assistance with toilet/shower transfers, Assistance with toileting, Assistance with showering/bathing, Assistance with dressing, Assistance with meal preparation, Assistance with transportation, Assistance with housekeeping Recommended Adaptive Equipment - OT: Other (Comment) (Ongoing assessment) Barriers to Discharge Home: Current functional status, Fall risk, Safety concerns Clinical Impression: Currently, patient presents with impairments including increased weakness and functional decline resulting in the following functional deficits: decreased independence with ADL, IADL, and functional mobility tasks. Denzel was seated in bedside chair upon therapist arrival. He was alert and oriented and agreeable to participate. He did not report any pain with activity. Facilitated lower body dressing from seated level - patient demonstrated deficits with right lower extremity greater than left. Facilitated sit<>stand from chair with minimal assist of 1-2 and front wheeled walker. Patient displays significant retropulsive lean in standing and demonstrated difficulty correcting this, along with difficulty with weight shifting and marching in place today. Encouraged patient to continue mobilizing with nursing staff with [facility] as appropriate, to continue performing exercises and completing self-cares with assist from nurses. Denzel's weakness is his biggest limiting factor. Patient continues to benefit from skilled occupational therapy services to increase activities of daily living independence and promote function and quality of life to the highest level possible. Rehab potential: Mr. Lau has good potential to achieve established occupational therapy goals within the time frame outlined below. Tiered OT Evaluation Codes: Comorbid Conditions: Cancer, Diabetes, Cerebrovascular accident Personal Factors: Age, Balance impairment, Needs assistive device, History of falls Occupational Profile and History review: Expanded Performance Deficits: 3 - 5 performance deficits Evaluation Complexity: Low Functional Goals: OT Goal #1: Patient will complete upper and lower body dressing with modified independence to decrease dependence on caregiver. OT Goal #1 Status: Slowly progressing OT Goal #2: Patient will complete toileting and toilet hygiene with modified independence to decrease dependence on caregiver. OT Goal #2 Status: Slowly progressing OT Goal #3: Patient will tolerate 7+ minutes dynamic standing balance with supervision to modified independence to allow for grooming at the sink to decrease dependence on caregiver. OT Goal #3 Status: Slowly progressing Progress: Progressing toward goals Plan Occupational Therapy Attestation Statement: Patient agrees with the plan of care and goals. OT Frequency: OT Amount: 1 visit per day OT Frequency: 5 times per week OT Inpatient Duration : Until goals are met or hospital discharge Requires Inpatient OT Follow-Up: Yes OT - Next Inpatient Appointment: 09/23/23 Plan: Plan of care initiated OT Plan Comments: Next session: dynamic standing activity (seated vs standing grooming); commode transfer (pivot vs dayday stedy); standing tolerance; leisure engagement Treatment interventions may include: Treatment Interventions: Therapeutic exercise, Therapeutic functional activity, Self-care/home management, Neuromuscular re-education, Cognitive skills training Billing: Time Spent with Patient Evaluations OT Eval - Low Complexity : 8 min Therapeutic Interventions Home Management Training (min): 18 min Time Tracking Total Timed Units (min): 18 min Total Treatment Time (min): 26 min Aleida Diego O.T., O.T.DJohanna GER VIDEO * Yanna Solitario RDN, LD - 09/20/2023 5:01 PM CSTAssociated Order(s): Dietitian consult (hospital) Dietitian consult (hospital) Referring Provider: Melva Rodas M.D. Nutrition Care Plan Follow Up Clinical Nutrition continues to follow patient for assessment of nutritional status and tube feeding recommendations/management ASSESSMENT Completed visit with patient today as part of face to face care. Current Nutrition (since admission): Denzel continues on enteral feedings via nasojejunal tube, placed09/17/23. Currently tolerating feeds well at goal of 65 mL/hr. He denies any abdominal discomfort related to feeds. The patient wishes to take some intake by mouth and a Clear liquid diet has been started. A menu was provided to the patient. If this is well tolerated, over the weekend he can trial Full Liquids. Nutrition education: RDN provided book and education to patient and Rhona regarding home tube feeds on 09/18/23. Education will be reinforced prior to dismissal by RDN and [facility]. GI Tubes (Adults) Gastrostomy-jejunostomy 16 Fr Nare;Left (Active) Placement Date/Time: 09/17/23 1551 Placed by: Murali 2 GI GI Tube Type: (c) Gastrostomy-jejunostomy GI Tube Size: 16 Fr Tube Location: Nare;Left Connector Type: Small bore (ENFit??) Medications: acyclovir allopurinoL aspirin diclofenac sodium enoxaparin fluconazole insulin aspart levoFLOXacin levothyroxine levothyroxine lidocaine simvastatin Pertinent Labs: Last 3 results Lab Units 09/20/23 0618 09/19/23 0546 09/18/23 1557 SODIUM mmol/L 135 137 136 POTASSIUM mmol/L 4.0 3.6 3.6 CHLORIDE mmol/L 96* 98 97* BUN mg/dL 13 10 8 CREATININE mg/dL 0.70* 0.70* 0.69* PHOSPHORUS INORGANIC mg/dL 2.8 2.9 3.0 CALCIUM mg/dL 8.0* 8.3* 8.1* MAGNESIUM mg/dL 1.7 2.1 1.5* Medications include: Insulin, Zofran Current nutrition orders: Current Diet Tube feeding with oral diet -Nutren 1.5 (RTH); Feeding route: Nasojejunal; Feed options: Cyclic; Starting rate (ml/hr): 65; Rate advancement (ml/hrs): 10 mL/hr every 12 hours; Cyclic goal rate (ml/hr): 75 ml/hr x 20 hrs, off 4hours; Infusion start... starting at 09/20 1800 Adult Diet Clear Liquid starting at 09/20 1331 Weight since admission: Height: 175 cm Admission Weight: 73.3 kg (09/14/2023) Current Weight: 73.3 kg BMI (Calculated): 23.9 kg/m?? Weight change since admission: 0 kg Estimated Needs: Total Calorie Needs: 5700-2479 calories/day Method to Estimate Energy Needs: kcal/kg (25-30 kcal/kg) Weight Used for Equation Calculations: 73.3 kg Total Protein Needs: 88 - 110 grams/day Method to Estimate Protein Needs (g/kg): 1.2 - 1.5 gm/kg Weight Used to Calculate Protein Needs (Kg): 73.3 kg Nutrition Diagnosis: Altered GI function related to duodenal obstruction 2/2 known malignancy as evidenced by need for nutrition support w/ NJ tube placement w/ gastric decompression port. Malnutrition (undernutrition) related to side effects from treatment as evidenced by severe fat/muscle loss, weight loss of > 20% in less than one year PLAN Nutrition Intervention: Enteral nutrition, Collaboration and referral of nutrition care, Provide education to increase nutrition knowledge, Provide counseling strategies to apply nutrition knowledge,Discharge and transfer of nutrition care Nutrition parameter to monitor: Diet Progression/NPO Status, Enteral, Weight Status, Comparative Standards, Pertinent Labs, Nausea/Vomiting/Diarrhea ASPEN Criteria Malnutrition Status: Severe Malnutrition Recommendations: Cycle enteral program to allow patient to be off a few hours. He prefers being off overnight so he can lay flat. Today: 75 mL/hr x 20 hrs, off 4 hours (midnight to 4 am) Day 2: 85 ml/hr x 18 hrs, off 6 hours (midnight to 6 am) [place] will provide equipment and formula closer to time of discharge Continue daily electrolytes and replace as indicated Monitor tolerance of clears and Gastric tube output. May go to fulls when appropriate Clinical Nutrition will continue to follow. For questions about patient's nutritional care please contact pager [phone] on weekdays 07:30-16:00 or [phone] on weekends/holidays. GER VIDEO * Gina Klein M.D. - 09/20/2023 2:24 PM CSTAssociated Order(s): IP CONSULT TO NEUROLOGY NEUROLOGY CONSULT NOTE SUBJECTIVE Reason for consult: Facial droop, hemibody weakness Primary Team: RST [facility] 3 Neurology Supervising Food Beverage Server: Minerva HISTORY OF PRESENT ILLNESS: Mr. Hola Lau is a 72 y.o. 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 Neurology was consulted due to newly appreciated weakness and facial droop identified on 09/19/2023. In speaking with the patient today, he and his partner believe that his facial droop is chronic andunchanged. They have noticed diffuse, generalized weakness that is perhaps worse on the right side of the body that has developed gradually over time. He has a history of ischemic stroke in 2002 with an unclear presentation. It is described as a leftthalamic infarct an outside imaging that we do not have available for review. Review of Systems: ROS as stated in the HPI, all other systems were reviewed and are negative Medications, allergies, past medical, surgical, social, and family history were reviewed in the chart and updated as appropriate. I have reviewed the current medication list. OBJECTIVE Temperature: [36.4 ??C-37.2 ??C] 36.6 ??C Heart Rate: [90-95] 90 Resp Rate: [11-21] 16 Blood Pressure: (123-138)/(68-79) 126/68 SpO2: [94 %-100 %] 94 % Pulse Rate: [89-108] 103 Physical Exam: Constitutional: Chronically ill-appearing, resting comfortably in bed Skin: No rash on exposed skin. MSK: Significant joint effusion of the right knee. Neurologic: Mental status: Alert and oriented to time, place and person Speech: Clear. Language: No evidence of aphasia. (Naming, reading, repetition and comprehension areintact.) Cranial nerves: PERRL, EOMI, visual atkinson intact to confrontation, facial movements full and symmetric, sensation intact to light touch in the V1-V3 distributions, hearing intact to voice, tongue protrudes in midline, there is equal elevation of the soft palate, shoulder shrug is appropriate in strength. Motor: The patient is unable/unwilling to lift his arm but when it is lifted he is able to hold it antigravity for 10 seconds. There is no satelliting. He is unable to lift the right lower extremity,Note significant joint effusion. Left hemibody is antigravity without drift. Tone is normal in bilateral upper and lower extremities. Sensory: Sensation is intact to light touch without extinction in upper and lower extremities. Coordination: Finger to nose and heel to suarez are normal bilaterally. Diagnostics: I have reviewed the labs, ECG, and diagnostics from admission. ASSESSMENT / PLAN Mr. Hola Lau is a 72 y.o. male with medical comorbidities significant for diffuse large B-cell lymphoma (April 2023) on methotrexate/rituximab followed by [facility] requiring dose reduction who was admitted on 09/14/2023 due to emesis found to have recurrent duodenal obstruction status post NJ + G port placement/decompression. Neurology was consulted due to newly appreciated weakness and facial droop identified on 09/19/2023. On examination, I am not convinced I am observing a neurologic pattern of weakness. The facial droop is chronic. I think we may have alternative explanations for the right sided weakness of the leg and encourage investigation of the knee effusion. We will follow up the MRI to assess the chronicity of the established infarct of the left thalamus which I favor may be the chronic infarct from 2002. If this is the case we would not make further recommendations. If there is a new infarct we would recommend holter monitor for 30 days, a TTE with bubble, fasting lipids, A1c, TSH, and stroke follow up. 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 - If acute stroke is present, please order: - fasting lipids - A1c - TSH - TTE with bubble - PMR/PT/OT Brain rehab - We will follow the MRI and if suggestive of acute infarct, follow remaining testing as well as order 30 day holter monitor and stroke follow up. - Continue ASA 81 mg daily Patient seen and discussed with our clinical sales consultant Dr. Palma. We will follow peripherally. Please page [phone] with any questions regarding our recommendations. Gina Sanz M.D. 09/20/23 GER VIDEO Associated attestation - Demian Palma M.D. - 09/20/2023 3:14 PM MANAGER VIDEO I saw and evaluated the patient, participating in the duncan portions of the service. I reviewed the resident/fellow???s note. I agree with the resident/fellow???s findings and plan. 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 The remainder of the right-sided weakness that was noted seems to be all in the setting of pain from his right knee effusion and chronic right shoulder pain. The team plans to obtain an MRI of the brain to explore any possibility of new stroke. If this is unremarkable, then no further neurologic workup is necessary. However, if the MRI brain does show evidence of a new stroke then we will provide further recommendations at that time. * Marcos Gupta M.D., Ph.D. - 09/20/2023 10:26 AM CSTAssociated Order(s): IP CONSULT TO RHEUMATOLOGY Rheumatology Consulting Service SUBJECTIVE REFERRING SERVICE RST HEMATOLOGY 3 CHIEF COMPLAINT/REASON FOR VISIT C/f gout in R knee, requesting tap HISTORY OF PRESENT ILLNESS Mr. Hola Lau is a 72 y.o. male who was admitted 09/14 found to have a duodenal obstructionnow s/p NJ tube, now with a new right knee effusion and pain. Rheumatology was consulted regarding concern for gout and requesting arthrocentesis. Medical comorbidities include DLBCL (diagnosed 05/14/2023, s/p 5 cycles Preston-R-[facility]P, last 08/12/2023 and since postponed due to cytopenias ), gout ( 1 flare in the right knee in 2019, on allopurinol 300 mg daily), history of ischemic stroke (2002). The patient presented to the ED on 09/14/2022 with nausea and vomiting. He was found to have a duodenal obstruction in an area of known lymphoma involvement. He underwent EGD guided NG tube placementand G port decompression placement on 09/17 with relief of his GI symptoms. Meanwhile, on approximately 09/17, he reports waking up with new right knee pain. On 09/19, he had difficulty participating physical therapy due to right knee pain and swelling. He reports an onset of neck pain stiffness that began at approximately the same time. Today, 09/20, he endorses new right elbow pain and decreased range of motion. He has a history of 1 gout flare on 04/19/2020, when he had a right knee aspiration that showed intra and extracellular MSU crystals. He has been on allopurinol 300 mg since that time. He does not recall any other joints being involved at that time nor any other flare since. His hospital course has been complicated by concern for new facial droop on 09/20, unclear if new or related to prior infarct, currently undergoing neurologic workup. He is neutropenic and lymphopenic. CRP on 09/20 was elevated at 95.7. His uric acid level has been less than 4 since 05/2023, most recently it was 3.6 on 09/14 when he presented to the ED with nauseaand vomiting, approximately 3 days before the onset of joint pain, then 3.4 on 09/20. OBJECTIVE PHYSICAL EXAMINATION Vitals reviewed. Constitutional General: He is not in acute distress. Pulmonary Effort: Pulmonary effort is normal. Musculoskeletal Cervical back: Tenderness present. Comments: Prominent, warm effusion of the right knee. Inability to flex the knee due to pain. Tenderness to palpation. No erythema on the overlying skin. Left knee normal in appearance and range of motion. Right elbow with tenderness to palpation and decreased range of motion due to pain. Left elbow normal. Pain and decreased range of motion in the right shoulder, but he reports this is chronic since shoulder surgery. Left shoulder normal and nontender. Wrists and hands normal. Ankles and feet normal. Skin General: Skin is warm and dry. Findings: No erythema or rash. Neurological Mental Status: He is alert. DIAGNOSTICS I have personally reviewed the relevant diagnostic studies as discussed per HPI. ASSESSMENT / PLAN Mr. Hola Lau is a 72 y.o. male who was admitted 09/14 found to have a duodenal obstructionnow s/p NJ tube, now with a new right knee effusion and pain. Rheumatology was consulted regarding concern for gout and requesting arthrocentesis. Medical comorbidities include DLBCL (diagnosed 05/14/2023, s/p 5 cycles [facility], last 08/12/2023 and since postponed due to cytopenias), gout (1 flare in the right knee in 2019, on allopurinol 300 mg daily), history of ischemic stroke (2002). His presentation is consistent with a gout flare. We aspirated the right knee effusion and sent cell counts, gram stain, crystal analysis, and cultures. We did a therapeutic local injection with the aspiration. Upon our analysis under polarized light microscopy, MSU crystals were present, both intra and extracellular, to confirm the diagnosis of gout. The official lab report came back with cell count of [id number] with 87% neutrophils but no crystals seen. A few hours after aspiration and injection, he reports that his right knee is improving. He does also have pain in the right foot, right elbow, and right shoulder. We would expect about 10% of the intra-articular injection to get systemically absorbed, and this might be enough to help those joints too. If he is feeling better tomorrow, he may not need any additional treatment. However, if he still has ongoing pain that is interfering with rehabilitation and self cares, we would recommend approximately 2 days of prednisone 20 mg. His uric acid levels seem well controlled recently. We recommend continuing his current dose of allopurinol 300 mg daily. He reports having a medication at home that he can take when he has flares, most likely colchicine. That is a good option for him to have on hand to take at the start a future flares. #1 Gout flare #2 Duodenal obstruction s/p NJ tube #3 DLBCL s/p chemotherapy most recently 08/12/2023, now held #4 Neutropenia #5 Lymphopenia RECOMMENDATIONS: 1. Follow up synovial fluid cultures and gram stain. 2. If he is feeling better tomorrow, no additional treatment needed. If he is still having pain, wewould recommend approximately 2 days of prednisone 20 mg. 3. Please continue allopurinol 300 mg daily. The patient was seen and discussed with our clinical sales consultant, Dr. Romero. We will sign off for now. Pleasefeel free to contact us with any questions at our service pager [phone]. Electronically signed by: Burton Gupta M.D., Ph.D. 09/20/23 10:26 AM MANAGER VIDEO GER VIDEO Associated attestation - Hola Romero M.D. - 09/20/2023 4:41 PM MANAGER VIDEO This is a note to document the supervision of a rheumatology evaluation on this patient. I interviewed and examined the patient and agree with the assessment of Dr. Bandar Gupta. We were asked to see this patient with lymphoma who has duodenal obstruction, the evaluation of which is ongoing. The patient has a history of gout and has developed a significant atraumatic right knee effusion which was tapped earlier today and showed inflammatory fluid and gout crystals. He underwent a steroid injection which has been helpful. There is still a little bit of residual effusion on the right knee but has pain- free range of motion and subjective improvement in pain. He has been participating more in his activities of daily living. He has some discomfort in his right shoulder as well. If he continues to improve it has probably not needed to add any other medications. If he is still has some residual musculoskeletal symptoms from gout that inhibit rehabilitation, a dose or two of prednisone 20 mg a day [which could be given as parenteral steroid (methylprednisolone)] could be utilized as well. Patient family seems comfortable with this approach and discussion. The assessment and management strategy as discussed with me today by Dr. Gupta seems reasonable and prudent at this time. * Rich Freeman M.D. - 09/19/2023 4:33 PM CST SUBJECTIVE REASON FOR CONSULT Asked to evaluate Hola Lau who is a 72 y.o. male for right sided weakness. HISTORY OF PRESENT ILLNESS / BACKGROUND Mr. Lau is a very pleasant 72-year-old male who is currently hospitalized for duodenal obstruction medically managed. He carries diagnosis of diffuse large B cell lymphoma currently receiving chemotherapy. Stroke alert called for right truncal weakness, right upper extremity weakness, right lower extremity weakness, and right facial droop which had not been noted on prior exam. Last known well is not entirely clear but per bedside nurse he was starting to have this weakness at the time of shift change at 7 am but was more pronounced during physical therapy at approximately 2:30 pm. 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 He had NJ tube placed via EGD yesterday and had some lip trauma and swelling during this procedure. He has pain in right shoulder and right foot which does limit his strength on that side. OBJECTIVE I have reviewed the current vital sign data as applicable. Please review the CIVIL ENGINEERING TEACHER Narrator for details regarding this evaluation. PHYSICAL EXAM General: Alert, oriented x3 Neuro: Pupils equal, round, and fully reactive to light; visual field intact bilaterally; extraocular muscles intact vertically and horizontally; symmetric forehead creases; mild nasolabial flattening on right side compared to left; light touch sensation intact V1-V3 bilaterally; no upper extremitydrift for 10 seconds; no lower extremity drift against gravity for 5 seconds; normal light touch sensation in arms and legs; no aphasia; no dysarthria; finger to nose testing normal bilaterally Heart: Regular rate and rhythm, no murmur Lungs: Clear bilaterally, nonlabored breathing on room air DIAGNOSTICS I have reviewed relevant laboratory, imaging, and other diagnostics as applicable to this consultation. ASSESSMENT / PLAN #1 Obstruction Intestinal (HCC) #2 Weakness #3 Facial droop Discussed case with neuro senior. NIH stroke scale 1 for facial droop. Last known normal is unclearbut dates back to at least yesterday evening (approximately 20 hours) since per nursing staff he awoke with these right sided deficits. We proceeded with CTA head and neck and CT head non-contrast. Await final read but wet read is reassuring for no stroke. RECOMMENDATIONS - No indication for tPA or mechanical thrombectomy at this time. - No indication for ICU level cares. Case discussed with Dr. Palumbo. GER VIDEO * Macie Thakkar P.T., D.P.T. - 09/19/2023 3:29 PM CST Physical Therapy Inpatient Evaluation/Treatment SUBJECTIVE Patient's Name: Hola Lau Referring/Attending Provider: Faustino Nuñez M.B.B.S. Reason for Referral: PT Evaluate and Treat Pertinent Medical / Surgical History: Hola Lau has a past medical history of Apnea Sleep Obstructive (1994), Arthritis, Cataract, Chronic Kidney Disease NOS, Diabetes Mellitus NOS, Dysphagia, Hyperlipidemia, Hypertension NOS, Hypothyroidism, Malignant Neoplasm Of Thyroid (HCC), Malignant Neoplasm Of Thyroid Follicular (HCC) (08/24/2015), Nausea And Vomiting (04/29/2023), Neuropathy Peripheral, Nodule Thyroid, Obesity Body Mass Index 30-39.9 Adult, Psoriasis, Skin Cancer (Primary) NOS, Sleep Apnea, Stroke (HCC), and Transient Ischemic Attack (2002). Hola Lau has a past surgical history that includes Vasectomy (1978); Thyroid surgery (1992); Tonsillectomy (1950); Eye surgery (1985); Decompression Spine - Posterior Lumbar (Bilateral, 10/23/2019); Hand surgery (2019); Rotator cuff repair (Bilateral); and Other surgical history. History of Present Illness: Hola Lau is a 72 y.o. male who was admitted to [facility] in [place] on 09/14/2023 for Leukopenia [D72.819] Neutropenia (HCC) [D70.9] Obstruction Intestinal (HCC) [K56.609]. Relevant Medical History: Mr. Lau was admitted to the hospital secondary to abdominal pain and emesis and was found to have recurrent duodenal obstruction. He has a past medical history of diffuse large B-cell lymphoma, he has a history of a prior cerebrovascular accident, anemia, thrombocytopenia, duodenal mass, right foot drop, spinal stenosis without neurogenic claudication, history of falling, nicotine dependence, lumbar radiculopathy, thyroid cancer, type 2 diabetes, hypertension, and chronic kidney disease. RST PT/OT Falls screen: Fall in the last 12 months: Yes Did you have an injury with the fall: Yes, lost 2 toenails and skinned his knee Are you fearful of falling: Yes Precautions Other Precautions: right foot drop, right trunk lean, follow up neuro work-up, fall risk, right knee pain Home Living and Equipment: Lives with: Spouse/Significant other Receives help from: Spouse/Significant other Type of Home: House Home Layout: One Level Home Access: Level entry Bathroom Accessibility: Shower: Walk-in Shower with built in shower seat Assistive Device Owned: Four wheeled walker, Single point cane Prior Level of Function and Mobility: Functional Mobility: Modified Independent Basic Activities of Daily Living: Modified Independent Instrumental Activities of Daily Living: Required Assistance: Driving: No Occupational Role: Retired Leisure Interests: Fishing Pain Assessment: Pain Ratin-6/10 right knee pain Patient/Caregiver Goals: No specific goals stated Subjective Comments: Denzel was greeted while lying in bed and was agreeable to PT evaluation and treatment. He reports having difficulty with his right shoulder secondary to right shoulder surgery. He reports that he has baseline right foot drop that began suddenly in 2019. He reports new onset neck and head pain 2-3 days ago. He reports new onset right knee pain that began yesterday. He reports a history of Julien's palsy. OBJECTIVE Vital Signs: Vitals taken during session: heart rate, blood pressure, and oxygen saturation were within safe limits when assessed at the start of the session Evaluation Assessments: Neuro assessment: Tongue protrusion: midline Eye closing: symmetrical Smile: asymmetrical with noted right facial droop Lower extremity strength: lacks ability to complete a heel slide and long arc quad through entire range of motion on right, 0/5 plantarflexion and dorsiflexion on right, heel slide, long-arc quads, and plantarflexion and dorsiflexion within normal limits on the left Midline orientation: right sided trunk lean with multiple losses of balance to the right Oil Heater Operator strength: symmetric Of note: Nursing made aware of facial droop, right trunk lean, right leg weakness. Primary service was paged by PT and made aware of concern for stroke- like symptoms. While PT was paging service, RN did a neuro assessment and reports that it was the same as this morning. Primary service reported they would come to the room to further assess. Strength: Right upper extremity impaired - patient unable to raise his right upper extremity to place the blood pressure cuff and assisted this with his left upper extremity. He reported he had baseline right upper extremity impairments since having should surgery. Right lower extremity impaired - 2+/5 quadriceps, 0/5 dorsiflexion and plantar flexion on right. 3+/5 quadriceps, dorsiflexion, and plantar flexion Range of Motion: Right upper extremity impaired - unable to complete active shoulder flexion to bring right upper extremity off the edge of bed while semi- fowlers in bed in order to kenan the blood pressure cuff. Right lower extremity impaired - limited in right knee flexion and extension actively, he reports that his leg feels weak and his right knee is painful. Balance: Static Sitting: Poor (Requires assist to maintain balance) - right trunk lean and losses of balance to the right, able to maintain sitting balance for up to 30 seconds at a time with supervision assistance with cues to maintain midline Activity Tolerance: Endurance: Tolerates less than 10 minutes of activity Outcome Measures: [facility] Inpatient Short Form: -[facility] Basic Mobility (V.2) How much help from another person do you currently need???If the patient hasn't done an activity recently, how much help from another person do you think he/she would needif he/she tried? 1. Turning from your back to your side while in a flat bed without using bedrails?: A Little 2. Moving from lying on your back to sitting on the side of a flat bed without using bedrails?: A Lot 3. Moving to and from a bed to a chair (including a wheelchair)?: Total 4. Standing up from a chair using your arms (e.g., wheelchair, or bedside chair)?: Total 5. To walk in hospital room?: Total 6. Climbing 3-5 steps with a railing?: Total -[facility] Basic Mobility (V.2) Raw Score: 9 -[facility] Basic Mobility (V.2) Standardized Score: 25.8 Interpretation: Based on scoring guidelines using the raw score value: Those going to home had an average score at or above 18 Those going to facility had an average score at or below 17 Clinicians answer the -[facility] Inpatient Short Form based on observed patient activity and/or clinical judgement (ie. patient can be scored without physically performing each activity) Therapeutic Interventions: SUPINE TO SIT: Assistance Level: Moderate Assistance of 1 Device: head of bed elevated and bedrail Assistance/Cueing: verbal for step by step cues for use of log roll technique, moderate assistance at the trunk to come to full upright sitting Delivery: educated, instructed, assessed, and assisted SIT TO SUPINE: Assistance Level: Minimal Assistance of 1 Device: head of bed elevated and bedrail Assistance/Cueing: verbal and tactile for Lower extremity movement/management and Lower extremity placement Delivery: educated, instructed, assessed, and assisted The patient's status was discussed and the following coordination of care occurred with the: RN Primary Service Patient was left in bed at end of session with call light in reach, all needs met and questions answered. Assessment Discharge Therapy Needs - PT: Ongoing skilled physical therapy Skilled therapy can include physical therapy provided by home health, outpatient clinic, or a post-acute facility. The location of these services is determined by the patient's care team in partnership with patient/family. Level of Care Needed - PT: Assistance with transfers (Comment), Assistance with walking and moving around the home, Assistance with bed mobility Equipment Recommended - PT: Other (Comment) (Will continue to assess) Barriers to Discharge Home: Current functional status, Fall risk, Safety concerns From a physical therapy perspective, the level of care above has been recommended for Mr. Lau after hospital discharge. This level of care is based on his functional abilities during today's session. This may change throughout the hospital course and will be updated as appropriate. Clinical Impression: Currently, patient presents with decreased range of motion, decreased strength, increased pain, impaired static balance, and decreased activity tolerance resulting in the following impaired bed mobility. Patient was greeted and history was taken. He answered all questions appropriately and appeared to be an accurate historian. He reported new onset of right knee pain that started yesterday. Right knee assessment revealed right sided knee swelling, and difficulty with heel slides which he reported he was limited in by his knee pain. He also reported it felt weak. Proceeded to sit edge of bed and PT noted a right sided trunk lean. With cues he was able to gain midline and hold it, although had several losses of balance to the right that were corrected by PT. Neuro assessment completed as above and PT noted right facial droop with smiling. Patient reports he has a history of Julien's Palsy and stroke. Patient returned to supine and RN made aware of symptoms. PT left patient with RN and paged service with concerns for stroke like symptoms. Primary RN completed a neuro assessment and reported it was the same as the morning assessment. Primary service came to bedside to assess. Patient was abernathy ded off to primary service. Patient required moderate assistance with bed mobility and supervision to minimal assistance with sitting edge of bed for seated balance. Session terminated secondary to the above. Will further assess functional mobility as appropriate pending workup for neuro symptoms. Physical therapy treatment is medically necessary to restore and maximize function, maximize safetyand facilitate discharge to home, teach and educate the patient and/or caregivers. Functional Goals: PT Inpatient Goals PT Goal #1: Patient will be able to complete bed mobility independently to demonstrate improved functional independence by discharge PT Goal #2: Patient will be able to complete transfers with modified independence and use of front wheeled walker to demonstrate improved functional independence by discharge PT Goal #3: Patient will be able to ambulate 35 m with use of front wheeled walker and modified independence to demonstrate improved functional independence with ambulating household distances by discharge Hola Lau has Good rehab potential to meet the expected outcomes in a reasonable period of time. Plan Patient agrees with the plan of care and goals. Treatment Plan: Plan: Plan of care initiated PT Amount: 1 visit per day PT Frequency: 5 times per week PT Inpatient Duration : Until goals are met or hospital discharge Requires Inpatient Follow-Up: Yes PT - Next Inpatient Appointment: 09/20/23 PT Plan Comments: Follow up regarding neuro work-up; progress bed mobility; assess transfers and gait as appropriate; neuromuscular re-education Treatment interventions may include: Treatment/Interventions: Therapeutic exercise, Therapeutic functional activity, Neuromuscular re-education, Gait training Tiered PT Evaluation Codes: Comorbid Conditions: Cancer, Diabetes, Cerebrovascular accident Personal Factors: Age, Balance impairment, Needs assistive device, History of falls Examination elements: 4+ Clinical Presentation: Unstable Clinical Decision Making: High complexity clinical decision making Billing: Time Spent with Patient Evaluations PT Eval - High Complexity: 21 min Therapeutic Interventions Therapeutic Activity (min): 5 min Time Tracking Total Timed Units (min): 5 min Total Treatment Time (min): 26 min Macie Thakkar P.T., D.P.T. GER VIDEO * Maricruz Michaud RDN, PORSHA - 09/17/2023 2:00 PM CSTAssociated Order(s): IP CONSULT TO HOME ENTERAL SERVICE Received consult for Home Enteral Nutrition supply arrangements. Reviewed patient's medical record. Please see nutrition assessment and tube feeding recommendationsfrom the hospital dietitian (LAURA) in their note dated 09/16/23. Reason for tube feeding: obstruction of duodenum in setting of known lymphoma. Tube information: Plan for EGD guided NJ tube placement with gastric decompression port scheduled today. Intervention Care Coordination In collaboration with the hospital dietitian (LAURA) who provided patient and partner with information on: -Expected coverage for home enteral supplies based on the patient's insurance on file -Durable Medical Equipment (DME) company options -Process needed to submit referral to a DME and DME's role in obtaining details about insurance coverage. Estimate of benefits quoted by insurance is not a guarantee of payment. Authorization on file to speak with DME/Infusion Company: yes Obtained patient's DME preference and sent referral. Details of supplies ordered: see Chart Review, Other Orders, DME Adult Enteral Nutrition. DME that will provide home enteral supplies: [place] [facility] [phone]. Patient Refill number Supply delivery plans: Company will coordinate delivery to patient's room prior to dismissal. Provided DME company contact information noted above and Home Enteral Nutrition contact information. Encouraged them to call with questions after dismissal: [phone] For questions about home enteral supply arrangements prior to dismissal, contact [facility] [phone]. For questions about current inpatient nutrition plan contact hospital dietitian. Patient and partner verbalized understanding of information discussed. Follow-up Plan A dual lumen tube is planned and due to this, all questions or concerns with this tube will go to the dismissing team until we can see him in HEN clinic (which has been ordered) GER VIDEO * Beata Carcamo Crow, LAURA, PORSHA - 09/16/2023 1:01 PM CSTAssociated Order(s): IP CONSULT TO DIETITIAN; IP CONSULT TO DIETITIAN Clinical Nutrition: Initial Assessment Clinical Nutrition was requested to evaluate patient for positive nursing baseline nutrition screenwith a MST score of 2 or greater and tube feeding order consult SUBJECTIVE Mr. Lau is a 72 y.o. male admitted for abdominal pain. Presents with obstruction of duodenum insetting of known lymphoma. History of DLBCL that was diagnosed April 2023 after he presented with weight loss, nausea, vomiting abdominal pain and inability to tolerate PO intake and found to have a duodenal mass. Completed visit with patient and family today as part of face to face care. Current Nutrition (since admission): Patient NPO. NGT in place to LCS with 1050 mL output in the past 24 hours. Plan for EGD guided NJ tube placement with gastric decompression port scheduled today. Discussed home enteral process with patient. RDN to consult HEN team and provide education review ofpump feedings via NJT for homegoing. Patient currently has no enteral equipment at home as his previous NJT was removed. Nutrition history: Patient reports good appetite and oral intake over the past 4 weeks. Typically consuming 2 meals daily plus one Ensure supplement daily. For breakfast would have 2 eggs, toast and Ensure supplement. Dinner mostly consisted of leftovers. On Saturday09/11/23 patient started experiencing epigastric discomfort. On Thursday 09/14 he had multiple episodes of emesis following breakfast meal. Has not had any oral intake since. He previously had nasojejunal tube and did tube feedings athome via pump in April/May of 2023. This was since removed. Food Allergies: None Chewing/Swallowing Issues: None Nutrition education/counseling: Patient previously followed by HEN team and received education on pump feedings by inpatient RDN on 05/01/23. OBJECTIVE Current nutrition orders: Dietary Orders (From admission, onward) Start Ordered 09/15/23 0040 No oral nutrition, no tube feeding Diet effective now 09/15/23 0041 Pertinent Labs: Last 3 results Lab Units 09/16/23 0801 09/15/23 0505 09/14/232013 SODIUM P mmol/L -- -- 136 SODIUM mmol/L 139 139 -- POTASSIUM mmol/L 3.9 3.8 -- POTASSIUM P mmol/L -- -- 4.0 CHLORIDE P mmol/L -- -- 99 CHLORIDE mmol/L 99 101 -- BUN P mg/dL -- -- 17 BUN mg/dL 16 13 -- CREATININE mg/dL 0.79 0.72* 0.68* PHOSPHORUS INORGANIC mg/dL -- -- 3.8 CALCIUM P mg/dL -- -- 8.5* CALCIUM mg/dL 8.5* 8.4* -- Medications: acyclovir fluconazole in dextrose (iso osm) heparin (porcine) insulin aspart levoFLOXacin NaCl NaCl potassium chloride Anthropometrics: Height: 175 cm Admission Weight: 73.3 kg (09/14/2023) Current Weight: 73.3 kg BMI (Calculated): 23.9 kg/m?? Weight change since admission: 0 kg Weight Change History: Weight history of 92.3 kg on 01/15/23, 87.3 kg on 04/29/23, 80.1 kg on 05/21/23.Weight loss of 19 kg (20.5%) in 8 months, clinically significant, 14 kg (16%) in 5 months, also clinically significant. Estimated Needs: Total Calorie Needs: 5872-4534 calories/day Method to Estimate Energy Needs: kcal/kg (25-30 kcal/kg) Weight Used for Equation Calculations: 73.3 kg Total Protein Needs: 88 - 110 grams/day (Method to Estimate Protein Needs (g/kg): 1.2 - 1.5 gm/kg) Weight Used to Calculate Protein Needs (Kg): 73.3 kg Nutrition Diagnosis: Altered GI function related to duodenal obstruction 2/2 known malignancy as evidenced by need for nutrition support w/ NJ tube placement w/ gastric decompression port. Malnutrition (undernutrition) related to side effects from treatment as evidenced by severe fat/muscle loss, weight loss of > 20% in less than one year Malnutrition Criteria: Severe Malnutrition The patient does meet the ASPEN Criteria of malnutrition based on: Energy Intake: No Change Interpretation of Weight Loss: greater than 20% 1 year Body Fat: Severe Loss Muscle Mass: Severe Loss This is in the context of Chronic Illness. ASSESSMENT / PLAN ASPEN Criteria Malnutrition Status: Severe Malnutrition Nutrition Intervention: Interventions: Enteral nutrition, Collaboration and referral of nutrition care, Provide education to increase nutrition knowledge, Provide counseling strategies to apply nutrition knowledge, Discharge and transfer of nutrition care. Recommendations: Start enteral nutrition: Nutren 1.5 with standard initiation at 20 mL/hr and advancement by 10 mL every 12 hours to goal rate of 65 mL/hour for 24 hours/day. Enteral nutrition at goal rate provides: 1560 mL, 2340 calories and 106 grams of protein daily. Nocturnal Progression for Home: Step 1) 80 mL/hour over 19 hours Step 2) 95 mL/hour over 16 hours Step 3) 110 mL/hour over 14 hours Step 4) 125 mL/hour over 12 hours Any step may be goal, depending on best tolerance. Water flushes: 120 mL, 5 x daily. For homegoing purposes: patients nutrition needs best met through 6 cartons of tube feeding daily. Tube feeding of Nutren 1.5, 6 cartons daily will provide 1500 mL total volume, 2250 kcal, 102 gramsprotein, 264 grams carbohydrate, 1140 mL free water, and 150 % RDIs daily. RDN consulted HEN team for assistance in homegoing tube feed coordination. RDN to provide education prior to hospital dismissal. Monitoring/Evaluation: Nutrition parameter to monitor: Diet Progression/NPO Status, Enteral, Weight Status, Comparative Standards, Pertinent Labs, Nausea/Vomiting/Diarrhea Desired Outcome: Improve nutritional status and promote favorable weight trending Patient Goal(s): Tolerate enteral nutrition at goal rate Clinical Nutrition will continue to follow. For questions about patient's nutritional care please contact pager [phone] on weekdays 07:30-16:00 or [phone] on weekends/holidays. GER VIDEO * Archana Bynum R.N. - 09/15/2023 10:24 AM CSTAssociated Order(s): IP CONSULT TO CARE MANAGEMENT Discharge Planning Assessment SUBJECTIVE Assessment Information Referral Source: Nurse Referral Name: Jennifer Aceves R.N. Referral Reason: Discharge Planning Previous assessment done on: 08/06/23 Previous assessment done by: Kayla Israel RN Primary Language: Polish Intranet Support Services Used: No Person(s) Present During Interview: patient History of Present Illness #1 Obstruction Intestinal (HCC) Vomiting Social History Marital Status: single Family / Household: Lives with his significant other Rhona Support System: significant other, family members, and friends/neighbors Finance/Insurance Primary insurance: MEDICARE A AND B Secondary insurance: [employer] benefits: No Advance Directives Legal Decision Maker: Self Advance Directives: On file Advance Directives Status: Not Activated OBJECTIVE Baseline Functional Status Baseline Activities of Daily Living Mobility: Modified independent, Requires aide of device Dressing: Independent Feeding: Independent Bathing: Independent Grooming: Independent Toileting: Independent Behavior: Appropriate, Pleasant, Calm, Cooperative, Oriented Communication: Talks, Understands speaking, Understands Polish Shopping: Needs assistance Medication Management: Independent Housekeeping: Needs assistance Meal Prep: Needs assistance Assistive Devices: BiPAP/CPAP/VPAP, Cane, Walker - four wheeled, Tub/shower chair/bench, Eyeglasses, Medication box, Cellphone, Grab bars - wall, Grab bars - toilet, Blood pressure cuff Baseline Services/Resources Primary care clinic and provider: PCP Callie Blue MD [address] [place] [address] Additional Resources: none at this time Anticipated Needs Functional Status: Transportation use (drive car, use taxi/bus), Mobility, Housekeeping, Shopping, Meal preparation Assistive Devices: None Anticipated Modifications to the Patient's Home: None Transportation Needs: Support from family Does the patient need discharge transport arranged?: No Phone Number for Ride/Caregiver: Rhona [phone] Anticipated Discharge Destination: Home or Self Care ASSESSMENT / PLAN Assessment: The printing film stripper met with Hola Lau to discuss his current hospitalization and home going needs. The patient was unaccompanied. The patient was a reliable historian. The role of printing film stripper was reviewed. The patient reviewed his prior level of care and support system. The patient receives support from his significant other, extended family, and friends . The patient described his living environment as a Townhouse with level entry. Housekeeping, groceryshopping, meal prep, and other household responsibilities have previously been completed by patient's significant other. printing film stripper discussed the patient's potential needs at dismissal based on their home setting, previous needs and responsibilities, homebound status, and relevant assessments with the patient. The patient will be safe and supported to return home with spouse/S.O. when medically ready. Support will be provided by Rhona. The patient demonstrated understanding when discussing his home going plans and anticipated needs. manager field met with the patient to discuss discharge planning needs. Upon meeting with the patient, the case packer introduced themselves, their role within the multidisciplinary care team, along with the purpose of today's visit. The patientt verbalized understanding and was in agreement with discussions. The patient was al alert, oriented and engaged in conversation. When case management entered the room the patient was resting quietly in bed watching TV. Upond further discussion the patient reports living in a Townhouse with level entry access. The patient reports he lives with his significant other who he receives the majority of his support from. He notes, he has great neighbors, and friends that are always willing to help if needed. The patient states prior to his hospitalization he was independent with all his cares, but would require some assistance housekeeping, and meal prepping. The patient will utilize a walker with ambulation. The patient appears to have good insight into her needs. The patient was engaged in conversation and answered questions appropriately At this time, the care team has not identified any skilled post-hospital discharge care needs that require the assistance of the Care Management Team. After reviewing the patient's chart and meeting with the patient, the printing film stripper deemed the LACE+/readmission questions were appropriate. The patient explained that his current admission was dueto bowel obstruction.The patient stated that he had no difficulty obtaining, understanding, or using his medications as directed. The patient reports no other concerns regarding his medications. A primary care provider has been identified; The patient has not been having difficulty making or attending appointments with his PCP. The patient stated his current admission could not have been prevented. The printing film stripper will share this information with the care team. The patient reports understanding that he will dismiss from the hospital when medically stable. Pending hospital course and medical readiness, no barriers to dismissal have been identified at this time. Plan: The patient agrees with the following plan. Patient's anticipated discharge disposition is: Home to Self Care Transportation upon dismissal will be provided by family--Rhona . printing film stripper recommended reaching out to family, friends, and neighbors for assistance. printing film stripper provided information regarding the dismissal process. printing film stripper placed or requested the following hospital-based consult orders and/or referrals: None. printing film stripper will continue to assess for homegoing needs with the interdisciplinary team. printing film stripper encouraged the patient to reach out with any questions/concerns. Signed by: Archana Bynum R.N. 09/15/2023 GER VIDEO * Prem Marcial M.D., Ph.D. - 09/15/2023 1:33 AM CSTAssociated Order(s): IP CONSULT TO GENERAL SURGERY Images from the original note were not included. Hospital Surgical Service Consult Name: Hola Lau : 1950 Attending Physician: Stacey Rai M.B.B.S. Primary Care Physician: ROSEMARIE, PCP Hospital Day: 1 day Reason for Consultation Hospital Surgical Service consultation is requested for small-bowel obstruction HISTORY OF PRESENT ILLNESS Hola Lau is a 72 y.o. male presents after nausea and vomiting this morning immediately after having breakfast and is nausea persisted throughout the day. He was history of diffuse large B-cell lymphoma that presented with abdominal pain and nausea secondary to a near obstructing duodenalmass that was diagnosed in April 2023. For the past 4 weeks he has been able to tolerate a normal diet and said he had been eating well, about 1 week ago he noticed a change in his ability to tolerate p.o. intake any felt full faster, Hislast bowel movement was yesterday. DLBCL History 04/2023 -postprandial pain, nausea vomiting, [...] interval PET scan demonstrated alvaro decrease in masslike thickening ofduodenum 07/2023 - 4 cycles Preston-R-CHP, interim PET showed good response at lymph nodes but concern of residual focal uptake 3rd portion of duodenum 08/2023-EGD showed ulcerated duodenal stenosis and 3rd portion of duodenum with 10 mm inner diameter, unable to transverse due to scope length 09/2023 - /final cycle of Preston-R-CHP planned In the ED he was vitally stable but complaining of abdominal pain. CT scan demonstrates dilation ofproximal duodenum and stomach with obstruction and 3rd portion of the duodenum without evidence of perforation. He had immediate relief upon placement of NG tube and decompression of his stomach. He was given IV fluid resuscitation and admitted to the hematology service for further management. Uponarrival to [facility] patient was alert and oriented and only complaining of mild tenderness to palpation of his abdomen, nausea had resolved. Other significant medical history includes thyroid cancer treated with total thyroidectomy in 1992,type 2 diabetes and rheumatoid arthritis. He was retired and lives with his partner in [place]. SURGICAL HISTORY Past Surgical History: Procedure Laterality Date DECOMPRESSION SPINE - POSTERIOR LUMBAR Bilateral 10/23/2019 Procedure: L4-L5 laminectomy; Surgeon: Ricardo Saucedo M.D.; Location: [facility] ROM OR EYE SURGERY 1985 cataracts HAND SURGERY 2019 tophi removal left thumb OTHER SURGICAL HISTORY ROTATOR CUFF REPAIR Bilateral THYROID SURGERY 1992 two surgeries TONSILLECTOMY 1950 VASECTOMY 1978 PAST MEDICAL HISTORY, SOCIAL HISTORY, SURGICAL HISTORY, AND FAMILY HISTORY Past Medical History: Diagnosis Date Apnea Sleep [...] Apnea Stroke (HCC) Transient Ischemic Attack 2002 The following portions of the patient's history were reviewed and updated as appropriate: problem list, medical history, social history, surgical history, and family history. MEDICATIONS I have reviewed current medications and medications prior to admission, as well as allergies. Current anticoagulation medications: None Current immunosuppressant medications: Last cycle of chemo August 20 INVASIVE DEVICES Lines, Drains, and Airways Drain Duration GI Tubes (Adults) Nasogastric 18 Fr Nare;Right 2h Central venous catheter Duration Implanted Port Single Lumen 07/22/23 Permanent (tunneled, implanted) Right Chest Power injectable 54d 15h Wound Duration Wound 08/07/23 Traumatic Toe 2nd Anterior;Left 38d 17h Puncture 05/14/23 Abdomen Medial;Upper biopsy site 123d 10h OBJECTIVE Temperature: [36.6 ??C-36.7 ??C] 36.6 ??C Heart Rate: [75-84] 75 Resp Rate: [10-19] 15 Blood Pressure: (110-146)/(65-78) 121/69 SpO2: [94 %-99 %] 94 % Pulse Rate: [70-99] 75 No intake or output data in the 24 hours ending 09/15/23 0133 Wt 73.3 kg Facility age limit for growth %eliezer is 20 years from contact on 09/04/2023., Facility age limit forgrowth %eliezer is 20 years from contact on 09/04/2023., Facility age limit for growth %eliezer is 20 years. Physical Exam: Constitutional Appearance: Normal appearance. Eyes Pupils: Pupils are equal, round, and reactive to light. Cardiovascular Rate and Rhythm: Normal rate and regular rhythm. Pulses: Normal pulses. Pulmonary Effort: Pulmonary effort is normal. Breath sounds: Normal breath sounds. Abdominal Comments: Distended, slightly tender to deeper palpation on the right side Diffuse bowel sounds NG tube in place with dark green bilious output - 300 mL in canister, particular matter seen in NG tubing Skin General: Skin is warm and dry. Capillary Refill: Capillary refill takes less than 2 seconds. Neurological General: No focal deficit present. Mental Status: He is alert and oriented to person, place, and time. Psychiatric Mood and Affect: Mood normal. DIAGNOSTICS Studies of note include: Hemoglobin 8.5 from 8.8, ANC 0.49 WBC 1.6 from 3.7 Lactate 0.9 Lipase 6 Total bilirubin 0.3 Potassium 4.0 Creatinine 0.68 DX Abdomen Portable Anterior Posterior 1 View Narrative: EXAM: DX ABDOMEN PORTABLE ANTERIOR POSTERIOR 1 VIEW Impression: NG tube with tip and sidehole in the stomach. CT Abdomen Pelvis with IV Contrast Narrative: EXAM: CT ABDOMEN PELVIS WITH IV CONTRAST COMPARISON: PET/CTs 08/09/2023, CT abdomen/pelvis 08/05/2023, 05/11/2023 FINDINGS: Increased caliber of the descending duodenum measuring up to 4.0 cm with abrupt tapering at the area of known lymphomatous involvement centered in the 3rd segment of the duodenum (series 6, image 30). The remainder of the small bowel is decompressed. Large bowel is normal in caliber. Normal appendix. Normal appearance of the liver and gallbladder. Diffuse pancreatic parenchymal atrophy. Stable cystic lesion in the head of the pancreas (series 3, image 53). Enlargement of the prostate gland. Stable enlarged central mesenteric node measuring 1.4 cm (series 3, image 76). No new or enlarging abdominopelvic lymphadenopathy. No free fluid. No free intraperitoneal air. Aortoiliac atherosclerotic calcifications. Degenerative changes of the skeleton. Resolved small bilateral pleural effusions. Bibasilar interstitial and reticular fibrosis with superimposed interlobular septal thickening likely representing. Dense mitral annular calcification. Impression: 1. 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 No evidence for perforation. 2. Resolved small bilateral pleural effusions. EGD 08/13 showing ulcerated duodenal stenosis, 3rd portion duodenum CT scan from 09/14/2023 showing dilated proximal duodenum and stomach with transition point in 3rd portion duodenum past ampulla MEDICAL DECISION MAKING Hola Lau is a 72 y.o. male with diffuse large B-cell lymphoma that presented with near obstructing mass in 3rd portion of duodenum in April 2023. He has had intermittent upper GI obstructions secondary to this mass for the past 6 months, previously had responded to steroids and disease therapy, a NG tube with gastric decompression port was utilized for 2 weeks previously. EGD on 08/13di demonstrate duodenal stenosis with an estimated inner diameter of 1 cm, ulcerations present butnot thought to be actively bleeding. Speaking with Hematology and radiology this area of stenosis is not thought to be active lymphoma. He has had an excellent response to Preston-R-CHP therapy and currently has had 5 of 6 planned cycles.There is an optimistic prognosis in terms of DLBCL in his disease is thought to be well controlled. Ultimately he will need a bypass surgery to drain pass the stricture, areas of scarred treated lymphoma we will not resolve and this will lead to chronic obstructions for him. As he has a good prognosis a jejunal duodenostomy we will likely be needed as this is in the 3rd portion of the duodenum past ampulla were bile drains. In regards to timing of the surgery, ultimately for this procedure we would want his counts fully recovered and currently his ANC is 0.49. I reached out to his hematology team and ask them about his 6 cycle of Preston-R-CHP, as it is currently set for 09/17. If he could receive that soon to maximize treatment effect then we ideally want to scheduled surgery about 4 weeks after his chemo. If they deem 6 cycle unnecessary then we could consider an earlier surgical date. Regardless of option in the meantime we would recommend placement by our GI colleagues of a nasal Jtube with gastric port. He can receive nutrition and be optimized for surgery, go through his next cycle and have symptoms relieved with gastric decompression. Then when optimized he can return for surgery. I asked his team to discuss this and to get back to me at their earliest convenience. Recommendations Continue NG tube decompression and fluid resuscitation, daily AXR Replete electrolytes if needed Place NJ-tube with gastric decompression port Initiate tube feedings per primary service Keep gastric port to suction for symptomatic relief Discuss timing of surgical intervention, ultimate he will require drainage procedure Please reach out to [facility] Chief team with any questions concerns by paging [phone] ([facility] Chief). Plan and assessment were discussed with Dr. Hamilton, who was in agreement. Diagnoses #1 Obstruction Intestinal (HCC) Prem Marcial M.D., Ph.D. 09/15/23 1:33 AM MANAGER VIDEO GER VIDEO documented in this encounter Nursing Notes * Yanira Boggs R.N. - 10/02/2023 5:00 PM CST Patient discharged safely to home/self care. AVS and medication list reviewed with patient and caregiver at the bedside. All questions and concerns addressed. Vital signs stable. No nursing barriers to discharge identified at this time. GER VIDEO * Simi Roque R.N., C.M.S.R.N. - 09/30/2023 8:10 AM CST Feeding Tube Site Care Indication for Consult: Initial post-placement site check Tube Type and size: Jejunal extension through Percutaneous Endoscopic Gastrostomy (Hydraulic Design Engineer [employer] ([employer])) Size: 20Fr PEG with a 10fr jejunal extension Connector Type: Small bore (ENFit) Date of tube placement: 09/27/2023 Placed by: GI Skin integrity at tube site: dry, intact, no redness Pain at tube site: Patient stated only a little pain at rest with intermittent muscles spasms. Rated pain 4/10 with site care. Patient had heat pack in place at time of visit. Disc position: Disc was at desired distance from skin and did not need to be adjusted. (approximately 1/2 inch offskin and no pressure can from underside of disc) Final Tube marking visible at top of disc (face plate): 4 cm for the gastrostomy tube, the jejunal extension measured at the 100 alvaro at time of tube placement. On this visit it measured at about wkx70ps alvaro and the tube was marked with sharpie to allow better visualization of tube movement. Primary service notified about change in jejunal extension position. Tube Rotation: Tube was not rotated due to tube type. This tube is not to be rotated. Tube insertion site was assessed and there was moderate amount of crusted serosanguineous drainage at the site. Gauze was not present under the skin disc. The site was cleaned with soap and water andwas left open to air. No bleeding or drainage was noted as site care was completed. Two tube securements were in place to secure the tube. No hypergranulation tissue noted. Yeast not present. Recommendations: Site care to be completed per enteral feeding tube exit site care procedure. Leave insertion site open to air. Secure tube to abdomen with a tube gaston (Flexi-Trak or other). Do not rotate tube. Clean the ENFit?? tube connector every 24 hours and when visibly soiled using a cleaning brush. Can consider a lidocaine patch for further pain control. This was discussed with primary team. Can consider imaging to ensure location of the tip of jejunal extension due to change in measurement from initial placement. This was discussed with the primary team. GER VIDEO * Alma Gorman R.N. - 09/30/2023 6:28 AM CST Shift Goals: Clinical Goals for the Shift: Tolerate tube feeds and maintain safety Identify possible barriers to meeting goals/advancing plan of care: Abdominal pain End of Shift Summary: Mr. Lau complained of fullness and bloating at about 2300. Service was informed and tube feeding was held. At about 0130 he woke up screaming with sharp abdominal pain that comes and go. The painimproved after using the bathroom. At about 0330 he had another episode of sharp abdominal pain where he woke up screaming. PRN Tylenol was given and that seemed to help. VSS. GER VIDEO * Alma Gorman R.N. - 09/29/2023 6:24 AM CST Shift Goals: Clinical Goals for the Shift: Rest and maintain patient safety Identify possible barriers to meeting goals/advancing plan of care: Abdominal pain End of Shift Summary: Mr. Lau complained of sharp abdominal pain during evening shift while having oral intake with tube feeds running. Tube feedings were stopped and service was informed of the pain. He had been rating his pain between a 1 and 6/10 overnight. PRN Tylenol was given. He was up multiple times to use the bathroom overnight, x1/walker. VSS on room air. GER VIDEO * Yanira Boggs R.N. - 09/28/2023 6:50 PM CST Shift Goals: Clinical Goals for the Shift: (tolerate tube feeds) Identify possible barriers to meeting goals/advancing plan of care: abdominal discomfort End of Shift Summary: Pt complained of abdominal pain when his tube feeds were running while he ate. This occurred during lunch and dinner. I paused the tube feeds at the patients request and the pain was reduced with that and PRN meds. Will plan to pause for meals to avoid discomfort in the future. GER VIDEO * Ramon Sales R.N. - 09/27/2023 1:18 PM CST PEG/PEJ Nursing Procedure Note ASSESSMENT / PLAN Patient Name: Hola Lau Department : [facility] [place] [facility] SUBJECTIVE Past Medical History: Diagnosis Date Apnea Sleep [...] 1992 two surgeries TONSILLECTOMY 1950 VASECTOMY 1978 Social History Socioeconomic History Marital status: Single Highest education level: Associate degree: occupational, technical, or vocational program Tobacco Use Smoking status: Former Packs/day: 1.00 Years: 22.00 Additional pack years: 0.00 Total pack years: 22.00 Types: Cigarettes Quit date: 02/07/1989 Years since quittin.6 Passive exposure: Never Smokeless tobacco: Former Types: Snuff, Chew Quit date: 04/18/2023 Vaping Use Vaping Use: never used Substance and Sexual Activity Alcohol use: Not Currently Alcohol/week: 3.0 standard drinks of alcohol Types: 3 Cans of beer per week Drug use: No Sexual activity: Not Currently Partners: Female Other Topics Concern Caffeine Concern No Social Determinants of Health Food Insecurity: No Food Insecurity (09/15/2023) Hunger Vital Sign Worried About Running Out of Food in the Last Year: Never true Ran Out of Food in the Last Year: Never true Transportation Needs: No Transportation Needs (09/15/2023) PRAPARE - Transportation Lack of Transportation (Medical): No Lack of Transportation (Non-Medical): No Intimate Partner Violence: Not At Risk (09/15/2023) Humiliation, Afraid, Rape, and Kick questionnaire Fear of Current or Ex-Partner: No Emotionally Abused: No Physically Abused: No Sexually Abused: No Housing Stability: Low Risk (09/15/2023) Housing Stability Housing: Living Situation: I have a steady place to live OBJECTIVE Procedure Patient presents to [place] [address] Patient being seen for: Other (PEG-J) Type of procedure: Initial Location of tube: Other (Gastric site with tip in the small bowel) Brand of tube: Avanos Type of connector: small-bore Reference number: [id number] Size of Tube: 20 Fr (10Fr on J-extension) Top of skin disc level: 4 (100cm on J-extension) Internal Retention Device: Bumper T Fasteners: Not Present Skin integrity of site: Normal/intact Ostomy tube not altered. Dressing/securement device: Flex-Trak Ostomy appliance not applied. Complications: None Was the tube labeled: Yes Tube labeled with: Jejunal feed, Stomach vent and Do not rotate Verification of tube done by: Direct Visualization (Fluoroscopy) After Visit Information Return appointment timeframe: 8-12 months Tube is used for: Feeding and Venting When may you use tube: May use tube in 4 hours Exact hour of usage: 1630 hours Tube placed to gravity: No Patient Education Learning needs assessment. Who is being assessed: Patient Any barriers to learning: None Learning preference: Listening, Doing, Reading and Seeing Education: PEG/PEJ Wallet Card ([id number]) Supplies sent with patient: None Placement of 20Fr bumper PEG tube with and 10Fr Jejunal extension running through the PEG into the small bowel distally to a small bowel obstruction. See Dr. Carvajal's procedural note for further procedural details. GER VIDEO * Renee Newton R.N. - 09/26/2023 4:48 PM CST PEG/PEJ Nursing Scheduling Note ASSESSMENT / PLAN Patient Name: Hola Lau Department : [facility] SUBJECTIVE Past Medical History: Diagnosis Date Apnea Sleep [...] 1992 two surgeries TONSILLECTOMY 1950 VASECTOMY 1978 Social History Socioeconomic History Marital status: Single Highest education level: Associate degree: occupational, technical, or vocational program Tobacco Use Smoking status: Former Packs/day: 1.00 Years: 22.00 Additional pack years: 0.00 Total pack years: 22.00 Types: Cigarettes Quit date: 02/07/1989 Years since quittin.6 Passive exposure: Never Smokeless tobacco: Former Types: Snuff, Chew Quit date: 04/18/2023 Vaping Use Vaping Use: never used Substance and Sexual Activity Alcohol use: Not Currently Alcohol/week: 3.0 standard drinks of alcohol Types: 3 Cans of beer per week Drug use: No Sexual activity: Not Currently Partners: Female Other Topics Concern Caffeine Concern No Social Determinants of Health Food Insecurity: No Food Insecurity (09/15/2023) Hunger Vital Sign Worried About Running Out of Food in the Last Year: Never true Ran Out of Food in the Last Year: Never true Transportation Needs: No Transportation Needs (09/15/2023) PRAPARE - Transportation Lack of Transportation (Medical): No Lack of Transportation (Non-Medical): No Intimate Partner Violence: Not At Risk (09/15/2023) Humiliation, Afraid, Rape, and Kick questionnaire Fear of Current or Ex-Partner: No Emotionally Abused: No Physically Abused: No Sexually Abused: No Housing Stability: Low Risk (09/15/2023) Housing Stability Housing: Living Situation: I have a steady place to live Hemoglobin Date Value Ref Range Status 09/26/2023 9.4 (L) 13.2 - 16.6 g/dL Final Platelet Count Date Value Ref Range Status 09/26/2023 240 135 - 317 x10(9)/L Final INR Date Value Ref Range Status 08/05/2023 1.2 0.9 - 1.1 Final Comment: ----ADDITIONAL INFORMATION---- Standard intensity warfarin therapeutic range: 2.0 to 3.0 High intensity warfarin therapeutic range: 2.5 to 3.5 OBJECTIVE Scheduling Tube type: TGJ Is comment required for scheduling: No Type of appointment: Initial Indication for tube placement: duodenal obstruction Fluoroscopy needed: Yes Is this a new placement: Yes Correct patient and procedure ordered: Yes Was patient able to consent to procedure: Yes NPO Time/Date: 09/26/2023 11:59 PM Any respiratory requirements: anesthesia History Any GI medical history: Other (duodenal obstruction) Any GI surgical history: None Any mental health history: None Any neuro/musculoskeletal history: Cerebral vascular accident (CVA) Any pulmonary history: None Any anesthesia considerations: Intial tube placement, Aspiration risk and Obstructive sleep apnea Anti-Coags/Labs Is patient receiving anticoagulants: Yes What anti-coagulant therapies is patient on: Other (lovenox) Were patients pertinent labs reviewed: INR (within 48 hours prior to procedure) Patient Education Was patient education complete: Yes Was post-placement nutrition consult appointment scheduled: No Reason why post-nutrition consult appointment was not scheduled: patient will receive education while in the hospital GER VIDEO * Ramon Stone R.N. - 09/26/2023 1:42 PM CST REASON FOR VISIT Mr. Lau was seen by the Nutrition Support RN today for a nursing assessment following a Nutrition Support Service consult for consideration of a new TGJ Tube. Formal recommendations for enteric tube placement will be made following assessment by the Nutrition Support Service team and approval by the clinical sales consultant. OBJECTIVE The indication for tube placement is Dysphagia and recurrent duodenal obstruction. ASSESSMENT Is there any pertinent cardiovascular history? None Is there any pertinent GI medical history? Duodenal mass Is there any pertinent GI/abdominal surgical history? None Is there a concern for altered cognition? no Is there any pertinent neuro/musculoskeletal history? Arthritis, peripheral neuropathy and Cerebralvascular accident (CVA) Is there any history of a JOB PUTTER UP AND TICKET PREPARER Shunt? No Is there any history of head and neck surgery? no Does the patient have any restrictive movement of the head/neck? None Does the patient have a history of Obstructive Sleep Apnea (CONNIE)? yes Does the patient have any supplemental oxygen needs? no Is the patient currently receiving radiation treatments? No Other pertinent medical history: Non-Hodgkin's lymphoma, Neoplasm of thyroid s/p surgery, hypothyroidism . Is the patient currently ? Patient is male Does the patient have any current GI issues? NGJ tube present Does the patient have any skin issues? None Anesthesia considerations are: Aspiration risk, Obstructive sleep apnea, and Tobacco use (past) Does the patient requires positive pressure support? yes Positioning considerations are: None What is the status of patient's oral cavity? Clean, no debris If thrush present has treatment been started? N/A Medications: Is the patient on an anticoagulant/antiplatelet therapy? Yes; Name of medication: Enoxaparin. Decisions regarding if medication needs to be held for the procedure will be made by the primary service and in collaboration with the procedural area, if applicable. Pertinent lab values: Lab Results Component Value Date INR 1.2 08/05/2023 INR 1.1 05/11/2023 INR 1.2 04/29/2023 PT 12.8 (H) 08/05/2023 PT 12.1 05/11/2023 PT 13.0 (H) 04/29/2023 Lab Results Component Value Date PLT 240 09/26/2023 Lab Results Component Value Date WBC 7.6 09/26/2023 PLAN The patient will be assessed by the Nutrition Support Service for enteric tube placement recommendations. See Dr. Reynolds's note for final recommendations. GER VIDEO * Savage Machado R.N. - 09/19/2023 4:11 PM CST CIVIL ENGINEERING TEACHER/stroke alert called for concerns of R sided weakness. CIVIL ENGINEERING TEACHER at bedside, pt to CT GER VIDEO * Giovany Saldivar R.N. - 09/19/2023 2:13 PM CST Problem: PAIN - ADULT Goal: PT VERBALIZES/DEMONSTRATES ADEQUATE COMFORT LEVEL OR BASELINE Outcome: Progressing Problem: KNOWLEDGE DEFICIT Goal: Patient/family/caregiver demonstrates understanding of disease process, treatment plan, medications, and discharge instructions Outcome: Progressing Problem: INFECTION - ADULT Goal: Absence of infection during hospitalization Outcome: Progressing Problem: SKIN/TISSUE INTEGRITY Goal: Skin/Tissue integrity maintained or improved Outcome: Progressing Goal: Oral and Nasal mucous membranes remain intact Outcome: Progressing Problem: SAFETY ADULT Goal: Maintain a safe environment Outcome: Progressing Problem: DISCHARGE PLANNING Goal: Patient discharge needs identified Outcome: Progressing Problem: SAFETY ADULT - RISK FOR FALL AND OR FALL INJURY Goal: Patient remains free from fall/fall injury Outcome: Progressing Problem: POTENTIAL OR ACTUAL PRESSURE INJURY-ADULT Goal: Manage sensory Perception deficits to maintain and/or improve skin integrity Outcome: Progressing Goal: Maintain optimal skin moisture to ensure or improve skin integrity Outcome: Progressing Goal: Achieve optimal activity and/or mobility to maintain or improve skin integrity Outcome: Progressing Goal: Nutrient intake appropriate for improving, restoring or maintaining skin integrity Outcome: Progressing Goal: Minimize friction and/or shear to maintain or improve skin integrity Outcome: Progressing Problem: Compromised Skin Integrity Goal: Skin/Tissue integrity maintained or improved Outcome: Progressing Goal: Oral and Nasal mucous membranes remain intact Outcome: Progressing Goal: Incisions, wounds, or drain sites healing without S/S of infection Outcome: Progressing Problem: Incontinence and/or Moisture Goal: Skin integrity is maintained or improved Outcome: Progressing Shift Goals: Clinical Goals for the Shift: Patient will have adequate pain control during the shift. Identify possible barriers to meeting goals/advancing plan of care: None End of Shift Summary: Goal met, patient had adequate pain control during the shift. GER VIDEO * Nicole Bowden R.N. - 09/15/2023 9:05 AM CST Verbal consent obtained. Photography necessary for clinical purposes. L 2nd toe. Electronically signed by: Nicole Bowden R.N. 09/15/23 9:09 AM MANAGER VIDEO GER VIDEO documented in this encounter ED Notes * Truman Baum M.D. - 09/14/2023 10:48 PM CST VITAL SIGNS BP 146/76 Pulse 79 Temp 36.7 ??C (Oral) Resp 19 SpO2 98% Final Diagnoses: as of 09/14/232247 Obstruction Intestinal (HCC) Neutropenia (HCC) Leukopenia I accepted care of this patient from the evening emergency department team. In short this is a patient who has a hematologic malignancy and a secondary bowel obstruction. Nasogastric tube is being inserted, x-ray will be done to confirm, the patient is being admitted to Hematology. Truman Baum M.D. 09/14/232247 GER VIDEO * Aris Mina P.A.-C. - 09/14/2023 7:20 PM CST SUBJECTIVE CHIEF COMPLAINT/REASON FOR VISIT Vomiting HISTORY OF PRESENT ILLNESS Hola Lau is a 72 y.o. male with past medical history significant for follicular thyroid cancer status post thyroidectomy, non-Hodgkin's lymphoma currently receiving chemotherapy with last dose on 08/12/2023, duodenal mass, type 2 diabetes mellitus, CKD stage 2, hypertension, hyperlipidemia, and other medical history as stated below who presents to the emergency department today for nausea and vomiting. Patient states that he had breakfast this morning and started to not feel well when he decided to lay down and at around 10:30 a.m. while in bed he vomited 3-4 times without any bilious emesis or hematemesis. Patient states that he started to feel somewhat better and when he got out of bed at around 4:00 p.m. he went to drink some water to try and take his medications and felt quite nauseous, but did not experience another episode of vomiting. Patient was concerned about this because yesterday he was otherwise feeling quite well and stated that this is unusual for him to feelthis way despite the cancer treatment he is undergoing. Patient reports intermittent diarrhea that he has had with his chemotherapy that is unchanged from baseline without any hematochezia or melena.He otherwise denies any other associated symptoms including fever, chills, myalgias, dysuria, hematuria, urinary urgency, urinary frequency, cough, hemoptysis, congestion, sore throat, chest pain, sergio rtness of breath, diaphoresis, palpitations, or lower extremity edema. History provided by: Patient rotary cutter feeder needed/used: no Patient Active Problem List Diagnosis Malignant Neoplasm Of Thyroid Follicular (HCC) Diabetes Mellitus Type 2 With Diabetic Neuropathy (HCC) Hypertension Essential Primary Hypothyroidism 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 Radiculopathy Lumbar Fifth Right Hyperlipidemia Apnea Sleep Obstructive Chronic Kidney Disease Stage 2 Glomerular Filtration Rate 60 To 89 Foot Drop Right Spinal Stenosis Lumbar Region Without Neurogenic Claudication History Of Falling Nicotine Dependence Chewing Tobacco Nausea And Vomiting Mass Duodenum Vomiting Lymphoma Non Hodgkins (HCC) Other Correction Current Drug Therapy Hypokalemia Anemia Thrombocytopenia (HCC) Obstruction Intestinal (HCC) OBJECTIVE Initial Vitals Temperature 09/14/231912 36.7 ??C Pulse Rate 09/14/231912 99 Heart Rate 09/14/231912 84 Resp Rate 09/14/231912 18 Blood Pressure 09/14/231912 141/78 SpO2 09/14/231912 97 % Pain Score 09/14/231915 0 - No pain PHYSICAL EXAMINATION Constitutional: Nursing note and vitals reviewed. HENT: Head: Normocephalic and atraumatic. Mouth/Throat: Oropharynx is clear and moist. Mucous membranes are moist. Eyes: Conjunctivae are normal. Pupils are equal, round, and reactive to light. Neck: No neck adenopathy. Cardiovascular: Normal rate, regular rhythm, S1 normal, S2 normal and normal heart sounds. Exam reveals no gallop and no friction rub. Pulses are strong and palpable. No murmur heard.Capillary refill: takes less than 3 secondsEdema: no edema noted Pulmonary/Chest: Effort normal and breath sounds normal. He has no wheezes. He has no rhonchi. He has no rales. Abdominal: Soft. Bowel sounds are normal. exhibits no distension and no mass. There is no hepatosplenomegaly. There is no abdominal tenderness. There is no rebound, no guarding, no CVA tenderness, notenderness at McBurney's point and negative Brooks's sign. Musculoskeletal: Cervical back: Normal range of motion. Neurological: Alert and oriented to person, place, and time. Skin: Skin is warm and dry. ASSESSMENT/PLAN Assessment and Plan Patient is a 72-year-old male with past medical history stated above who presents to the emergency department today for nausea and vomiting that began this morning. On initial presentation, patient is hemodynamically stable, breathing comfortably with normal oxygen saturation on room air, afebrile,and in no acute distress. Differential diagnosis includes, but is not limited to small- bowel obstruction, large-bowel obstruction, intra-abdominal mass, viral infection, pneumonia, pancreatitis, diverticulitis, cholecystitis, pyelonephritis, UTI, neutropenic fever, tumor lysis syndrome, and among others. Physical exam is unremarkable with no focal areas of abdominal tenderness or peritoneal signs, exam otherwise unremarkable. COVID and flu swabs were negative. Lactate was not elevated. LDH, uric acid, total calcium, inorganic phosphorus, potassium, and kidney function were all within normal limits providing low likelihood that patient is experiencing tumor lysis syndrome. Additionally, EKG personally reviewed by myself showed no QT prolongation, ventricular arrhythmias, or ST or T-wave changes concerning for ischemia or infarction. Urinalysis showed no signs of infection. CT of the abdomen and pelvis revealed dilation of the proximal duodenum and stomach secondary to a duodenal malignancy causing small-bowel obstruction. There were no other intra- abdominal pathologic findings on theCT scan. CBC revealed leukopenia, neutropenia, and lymphocytopenia compared to labs from 4 days agobut patient is afebrile and not ill-appearing. I spoke with pharmacy who agreed that given he is not febrile and otherwise well-appearing there is no need to start antibiotics at this time given thatwe have an explanation for his nausea and vomiting with his bowel obstruction. Shared decision-making was had with patient regarding NG-tube placement and he was agreeable with this. We also discuss a dmission to [facility] under the hematology service for further evaluation and treatment of his bowel obstruction and neutropenia. Care was then turned over to Dr. Truman Baum with plan for admission to hematology service at [facility] and follow up on x-ray following NG- tube placement. Patient was comfortable, not experiencing any nausea or vomiting, and in stable condition prior to handoff.. DIFFERENTIAL DIAGNOSES See above. I reviewed the following external records: office records, inpatient records, prior outpatient labsand prior outpatient radiology tests. ED Course as of 09/14/23 2329 Sat Sep 14, 20232013 Phosphorus Inorganic: Phosphorus (Inorganic), S 3.8 2013 Basic Metabolic Panel(!): Potassium, P 4.0 Sodium, P 136 Chloride, P 99 Bicarbonate, P 28 Anion Gap, P 9 BUN (Blood Urea Nitrogen), P 17 Creatinine 0.68(!) Estimated GFR (eGFR) >90 Calcium, Total, P 8.5(!) Glucose, P 115 0 Lactate, POCT(!): 0.42 2129 Uric Acid, S(!): 3.6 2129 Calcium, Total, P(!): 8.5 No QT prolongation seen on electrocardiogram or significant arrhythmias. 2[facility]: 215 2130 SARS Coronavirus 2, PCR Rapid Symptomatic: SARS CoV-2, PCR, Rapid, V Undetected SARS Coronavirus 2, Source, Rapid Swab, Nasopharynx 2130 Influenza A, B, RSV, PCR, Rapid: Influenza A, PCR, Rapid, V Negative Influenza B, PCR, Rapid, V Negative Resp Synctial Virus, PCR, Rapid Negative Specimen Source Swab, Nasopharynx 2130 EKG personally reviewed by myself revealed normal sinus rhythm with rate of [address] interval and QTC interval are normal. No ST or T-wave changes concerning for acute ischemia orinfarction. No dysrhythmias. 2131 Dipstick, Urine(!): Hemoglobin, QL Negative Leukocyte Esterase Negative Nitrite, U Negative Ketones Negative Glucose, U >=1000(!) Urine dipstick reveals significant glucosuria but no signs suggestive of a UTI. 2156 CBC with Differential, Blood(!): Hemoglobin 8.5(!) Hematocrit 26.8(!) Erythrocytes 2.86(!) MCV 93.7 RBC Distrib Width 18.0(!) Platelet Count 168 White Blood Cell Count 1.6(!) Neutrophils 0.53(!) Lymphocytes 0.53(!) Monocytes 0.39 Eosinophils 0.13 Basophils 0.05 CBC reveals baseline anemia compared to 4 days ago but does reveal leukopenia, neutropenia, and lymphocytopenia that is changed compared to labs from 4 days ago. However, we have an explanation for patient's nausea and vomiting that is not secondary to his neutropenia and he is afebrile. Spoke with pharmacy and they are in agreement that we do not need to start antibiotics given that he is afebrile and we have an explanation for his nausea and vomiting withhis bowel obstruction. [facility]: 215 2158 Phosphorus (Inorganic), S: 3.[address] Abdomen Pelvis with IV Contrast IMPRESSION: 1. 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 No evidence for perforation. 2. Resolved small bilateral pleural effusions. Plan to place a NG tube. Had shared decision-making discussion with patient regarding this and he is agreeable with this plan. 2158 Given that small-bowel obstruction is related to duodenal malignancy, we will place for a bed with Hematology/Oncology. Final Diagnoses: as of 09/14/232328 Obstruction Intestinal (HCC) Neutropenia (HCC) Leukopenia Care Handoff Row Name 09/14/232307 Care Handoff Type of Handoff Admission handoff Aris Mina P.A.-C. 09/14/232328 GER VIDEO * Radha Roy R.N. - 09/14/2023 7:16 PM CST Vomited 3-4x since 1000 accompanied by abdominal pain. Diarrhea earlier today as well. Hx cancer, last chemo 08/12. Radha Roy R.N. 09/14/231919 GER VIDEO documented in this encounter Miscellaneous Notes * Hospital Course - Alessandro Gonzáles M.D. - 09/15/2023 12:43 AM CST Mr. Hola Lau is a 72 y.o. 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 He initiated treatment with methylprednisolone and rituximab in 2022 and thenstarted treatment with Preston- CHP 05/21/2023. Interim PET CT scan showed Deauville 2. His last few cycles of Preston-R-CHP he has required dose reduction of cytoxan and doxorubicin due to decreasing performance status. His 6th cycle was held due to anemia at the end of August 2023, thus his last treatment was 08/12/2023. Hospital Course He presented to the hospital for abdominal pain and CT showed evidence of recurrent duodenal obstruction in the 3rd segment of duodenum at the area of known lymphomatous involvement with no perforation. Symptoms were significantly relieved after NG tube placement. He underwent upper endoscopy on 09/17 with biopsy and NJ tube placement with G port for decompression. Biopsy of the duodenum revealedno evidence of dysplasia or neoplasm. General surgery was consulted for duodenal stricture treatment, but they felt he was not a surgical candidate given severe malnutrition and scheduled for outpatient appointment. Nutrition saw the patient and recommended a PEG tube with a J extension which was placed on 09/27/2023 after the patient agreed. An oral diet supplement failed after the patient developed abdominal pain. After risks benefits with the patient discussed, decided to pursue with minimaloral eating for pleasure only, and to move forward with primary enteral feeds through the PEG/J-tube. Patient tolerated this well and him and his friend were educated by home internal nutrition. His hospital course was complicated by a rapid response due to concern for stroke in the setting ofacute on chronic worsening of right-sided upper and lower extremity weakness on 09/19/2023. Stat head CT/CTA was negative for acute pathology. Neurology was consulted and recommended a brain MRI, which showed only the known chronic infarct. Rheumatology was consulted for right knee effusion and after aspiration was notable for crystals they performed a steroid injection. On 10/02/2022 the patient was discharged to his home. He was comfortable and in agreement with thisplan. He was arranged with close outpatient hematology, nutrition and surgery follow up. GER VIDEO documented in this encounter Plan of Treatment Upcoming Encounters Date Type Department Care Team (Latest Contact Info) Description 10/06/2023 9:04 AM MANAGER VIDEO - 10/06/2023 11:24 AM MANAGER VIDEO Surgery [facility] MAIN OR [address] [place] [phone] Cameron Saenz M.D. [address] [place] [address] ABDOMINAL EXPLORATION, REMOVAL ABTHERA, POSSBLE BOWEL RESECTION, PROCEED INDICATED 10/11/2023 7:00 AM MANAGER VIDEO Appointment Department of Laboratory Medicine and Pathology, [facility], in [place], [place] [address] [place] [phone] Arti Epstein M.B.B.S. [address] [place] [phone] 10/11/2023 9:00 AM MANAGER VIDEO Office Visit Division of Hematology in [place], [place] [address] [place] [phone] Arti Epstein M.B.B.S. [address] [place] [phone] 10/11/2023 10:00 AM MANAGER VIDEO Infusion Department of Oncology in [place], [place] [address] [place] [phone] Bev Gifford APRN, C.N.P., M.S.N. [address] [place] [phone] 11/19/2023 10:00 AM CDT Office Visit Division of Endocrinology in [address] [phone] West Mendoza APRN, C.N.P., M.S. [address] [place] [phone] 11/19/2023 2:30 PM CDT Comprehensive Visit Division of Hepatobiliary and Pancreas Surgery in [address] [phone] Wesley Hamilton M.D. [address] [place] [phone] Scheduled Procedures Name Priority Associated Diagnoses Date/Ti me LAPAROTOMY - ABDOMINAL WASHOUT Ischemia Intestinal With Stricture (HCC) 10/06/2023 9:04 AM MANAGER VIDEO Scheduled Referrals Name Type Priority Associated Diagnoses Order Schedule Endocrinology - Home enteral medical nutrition therapy consult (clinic) Outpatient Referral Routine Lymphoma Non Hodgkins (HCC) Mass Duodenum Expected: 10/01/2023 (Approximate), Expires: 12/16/2024 Nutrition - Home nutrition medical nutrition therapy consult (clinic) Outpatient Referral Routine Lymphoma Non Hodgkins (HCC) Mass Duodenum Expected: 09/20/2023, Expires: 12/16/2024 General Surgery - Oncology gastric / small bowel consult (clinic) Outpatient Referral Routine Obstruction Intestinal (HCC) Expected: 10/21/2023 (Approximate), Expires: 12/19/2024 [facility] Referral Routine Decline Functional Status [R53.81] History Of Falling Foot Drop Right Radiculopathy Lumbar Fifth Right Ordered: 10/02/2023 documented as of this encounter Procedures Procedure Name Priority Date/Time Associated Diagnosis Comments GLUCOSE POCT, B Routine 10/02/2023 1:05 PM MANAGER VIDEO HEMOGLOBIN, B Timed 10/02/2023 8:36 AM MANAGER VIDEO GLUCOSE POCT, B Routine 10/02/2023 8:29 AM MANAGER VIDEO GLUCOSE POCT, B Routine 10/02/2023 6:27 AM MANAGER VIDEO CBC NO CALL BACK, REFLEX T/S Routine 10/02/2023 5:51 AM MANAGER VIDEO TYPE AND SCREEN Routine 10/02/2023 5:51 AM MANAGER VIDEO MAGNESIUM, S Routine 10/02/2023 5:51 AM MANAGER VIDEO BASIC METABOLIC PANEL, S/P Routine 10/02/2023 5:51 AM MANAGER VIDEO GLUCOSE POCT, B Routine 10/01/2023 8:48 PM MANAGER VIDEO GLUCOSE POCT, B Routine 10/01/2023 7:37 PM MANAGER VIDEO GLUCOSE POCT, B Routine 10/01/2023 4:16 PM MANAGER VIDEO GLUCOSE POCT, B Routine 10/01/2023 12:44 PM MANAGER VIDEO CBC WITH DIFFERENTIAL, B Timed 10/01/2023 11:57 AM MANAGER VIDEO GLUCOSE POCT, B Routine 10/01/2023 7:06 AM MANAGER VIDEO PHOSPHORUS (INORGANIC), S Routine 10/01/2023 5:22 AM MANAGER VIDEO MAGNESIUM, S Routine 10/01/2023 5:22 AM MANAGER VIDEO BASIC METABOLIC PANEL, S/P Routine 10/01/2023 5:22 AM MANAGER VIDEO GLUCOSE POCT, B Routine 09/30/2023 8:33 PM MANAGER VIDEO GLUCOSE POCT, B Routine 09/30/2023 5:29 PM MANAGER VIDEO GLUCOSE POCT, B Routine 09/30/2023 12:10 PM MANAGER VIDEO DX ABDOMEN 1 VIEW RAD - Routine (most inpatients and all outpatients) 09/30/2023 11:04 AM MANAGER VIDEO GLUCOSE POCT, B Routine 09/30/2023 9:51 AM MANAGER VIDEO CBC NO CALL BACK, REFLEX T/S Routine 09/30/2023 5:26 AM MANAGER VIDEO PHOSPHORUS (INORGANIC), S Routine 09/30/2023 5:26 AM MANAGER VIDEO MAGNESIUM, S Routine 09/30/2023 5:26 AM MANAGER VIDEO BASIC METABOLIC PANEL, S/P Routine 09/30/2023 5:26 AM MANAGER VIDEO GLUCOSE POCT, B Routine 09/29/2023 9:05 PM MANAGER VIDEO GLUCOSE POCT, B Routine 09/29/2023 6:03 PM MANAGER VIDEO GLUCOSE POCT, B Routine 09/29/2023 1:43 PM MANAGER VIDEO GLUCOSE POCT, B Routine 09/29/2023 5:58 AM MANAGER VIDEO CBC NO CALL BACK, REFLEX T/S Routine 09/29/2023 5:30 AM MANAGER VIDEO PHOSPHORUS (INORGANIC), S Routine 09/29/2023 5:30 AM MANAGER VIDEO MAGNESIUM, S Routine 09/29/2023 5:30 AM MANAGER VIDEO BASIC METABOLIC PANEL, S/P Routine 09/29/2023 5:30 AM MANAGER VIDEO GLUCOSE POCT, B Routine 09/28/2023 9:19 PM MANAGER VIDEO GLUCOSE POCT, B Routine 09/28/2023 5:13 PM MANAGER VIDEO GLUCOSE POCT, B Routine 09/28/2023 12:46 PM MANAGER VIDEO GLUCOSE POCT, B Routine 09/28/2023 12:19 PM MANAGER VIDEO GLUCOSE POCT, B Routine 09/28/2023 8:56 AM MANAGER VIDEO CBC NO CALL BACK, REFLEX T/S Routine 09/28/2023 5:51 AM MANAGER VIDEO PHOSPHORUS (INORGANIC), S Routine 09/28/2023 5:51 AM MANAGER VIDEO MAGNESIUM, S Routine 09/28/2023 5:51 AM MANAGER VIDEO BASIC METABOLIC PANEL, S/P Routine 09/28/2023 5:51 AM MANAGER VIDEO GLUCOSE POCT, B Routine 09/27/2023 9:36 PM MANAGER VIDEO POTASSIUM, PLASMA Timed 09/27/2023 8:0 6 PM MANAGER VIDEO GLUCOSE POCT, B Routine 09/27/2023 5:24 PM MANAGER VIDEO POTASSIUM, S/P Timed 09/27/2023 1:55 PM MANAGER VIDEO GLUCOSE POCT, B Routine 09/27/2023 1:01 PM MANAGER VIDEO FL FLUORO LESS THAN 1 HOUR RAD - Routine (most inpatients and all outpatients) 09/27/2023 12:48 PM MANAGER VIDEO UPPER GI ENDOSCOPY Routine 09/27/2023 11 :22 AM MANAGER VIDEO EGD ? PERCUTANEOUS ENDOSCOPIC GASTROSTOMY/JEJUNOST DUC Routine 09/27/2023 11:22 AM MANAGER VIDEO GLUCOSE POCT, B Routine 09/27/2023 11:22 AM MANAGER VIDEO ECG Semiurgent (Fast, most ED patients, some inpatients) 09/27/2023 9:26 AM MANAGER VIDEO GLUCOSE POCT, B Routine 09/27/2023 8:08 AM MANAGER VIDEO PROTHROMBIN TIME (PT), P Routine 09/27/2023 5:53 AM MANAGER VIDEO CBC WITH DIFFERENTIAL, B Routine 09/27/2023 5:53 AM MANAGER VIDEO BASIC METABOLIC PANEL, S/P Routine 09/27/2023 5:53 AM MANAGER VIDEO URIC ACID, S/P Routine 09/27/2023 5:48 AM MANAGER VIDEO PHOSPHORUS (INORGANIC), S Routine 09/27/2023 5:48 AM MANAGER VIDEO MAGNESIUM, S Routine 09/27/2023 5:48 AM MANAGER VIDEO GLUCOSE POCT, B Routine 09/26/2023 8:19 PM MANAGER VIDEO GLUCOSE POCT, B Routine 09/26/2023 5:57 PM MANAGER VIDEO GLUCOSE POCT, B Routine 09/26/2023 3:28 PM MANAGER VIDEO POTASSIUM, S/P Timed 09/26/2023 2:52 PM MANAGER VIDEO GLUCOSE POCT, B Routine 09/26/2023 12:01 PM MANAGER VIDEO ECG Routine 09/26/2023 7:29 AM MANAGER VIDEO CBC WITH DIFFERENTIAL, B Routine 09/26/2023 5:50 AM MANAGER VIDEO BASIC METABOLIC PANEL, S/P Routine 09/26/2023 5:50 AM MANAGER VIDEO GLUCOSE POCT, B Routine 09/25/2023 8:06 PM MANAGER VIDEO GLUCOSE POCT, B Routine 09/25/2023 5:32 PM MANAGER VIDEO GLUCOSE POCT, B Routine 09/25/2023 11:12 AM MANAGER VIDEO GLUCOSE POCT, B Routine 09/25/2023 7:47 AM MANAGER VIDEO CBC WITH DIFFERENTIAL, B Routine 09/25/2023 7:41 AM MANAGER VIDEO BASIC METABOLIC PANEL, S/P Routine 09/25/2023 7:41 AM MANAGER VIDEO GLUCOSE POCT, B Routine 09/24/2023 9:04 PM MANAGER VIDEO GLUCOSE POCT, B Routine 09/24/2023 4:51 PM MANAGER VIDEO GLUCOSE POCT, B Routine 09/24/2023 11:28 AM MANAGER VIDEO GLUCOSE POCT, B Routine 09/24/2023 7:24 AM MANAGER VIDEO CBC NO CALL BACK, REFLEX T/S Routine 09/24/2023 5:18 AM MANAGER VIDEO BASIC METABOLIC PANEL, S/P Routine 09/24/2023 5:18 AM MANAGER VIDEO GLUCOSE POCT, B Routine 09/23/2023 8:04 PM MANAGER VIDEO GLUCOSE POCT, B Routine 09/23/2023 5:26 PM MANAGER VIDEO GLUCOSE POCT, B Routine 09/23/2023 1:12 PM MANAGER VIDEO DX ABDOMEN PORTABLE ANTERIOR POSTERIOR 1 VIEW RAD - Routine (most inpatients and all outpatients) 09/23/2023 12:25 PM MANAGER VIDEO GLUCOSE POCT, B Routine 09/23/2023 7:33 AM MANAGER VIDEO CBC NO CALL BACK, REFLEX T/S Routine 09/23/2023 5:55 AM MANAGER VIDEO BASIC METABOLIC PANEL, S/P Routine 09/23/2023 5:55 AM MANAGER VIDEO GLUCOSE POCT, B Routine 09/22/2023 10:19 PM MANAGER VIDEO GLUCOSE POCT, B Routine 09/22/2023 5:40 PM MANAGER VIDEO GLUCOSE POCT, B Routine 09/22/2023 12:54 PM MANAGER VIDEO GLUCOSE POCT, B Routine 09/22/2023 11:14 AM MANAGER VIDEO GLUCOSE POCT, B Routine 09/22/2023 7:55 AM MANAGER VIDEO HEPATIC FUNCTION PANEL, S Routine 09/22/2023 7:05 AM MANAGER VIDEO CBC NO CALL BACK, REFLEX T/S Routine 09/22/2023 7:05 AM MANAGER VIDEO BASIC METABOLIC PANEL, S/P Routine 09/22/2023 7:05 AM MANAGER VIDEO GLUCOSE POCT, B Routine 09/21/2023 8:45 PM MANAGER VIDEO GLUCOSE POCT, B Routine 09/21/2023 5:40 PM MANAGER VIDEO GLUCOSE POCT, B Routine 09/21/2023 1:18 PM MANAGER VIDEO GLUCOSE POCT, B Routine 09/21/2023 8:35 AM MANAGER VIDEO CBC NO CALL BACK, REFLEX T/S Routine 09/21/2023 6:43 AM MANAGER VIDEO PHOSPHORUS (INORGANIC), S Routine 09/21/2023 6:43 AM MANAGER VIDEO MAGNESIUM, S Routine 09/21/2023 6:43 AM MANAGER VIDEO BASIC METABOLIC PANEL, S/P Routine 09/21/2023 6:43 AM MANAGER VIDEO GLUCOSE POCT, B Routine 09/20/2023 10:04 PM MANAGER VIDEO GLUCOSE POCT, B Routine 09/20/2023 8:49 PM MANAGER VIDEO MR BRAIN WITHOUT AND WITH IV CONTRAST RAD - Routine (most inpatients and all outpatients) 09/20/2023 6:24 PM MANAGER VIDEO GLUCOSE POCT, B Routine 09/20/2023 1:[address] ARTHCS ASP/INJ MJR JT WO US Routine 09/20/2023 12:37 PM MANAGER VIDEO Effusion Knee Right BACTERIA CULT, AEROBE/ANAEROBE+SUSC Timed 09/20/2023 12:34 PM MANAGER VIDEO CRYSTAL ID, BF Timed 09/20/2023 12:34 PM MANAGER VIDEO CELL COUNT AND DIFFERENTIAL, BF Timed 09/20/2023 12:34 PM MANAGER VIDEO GRAM STAIN Timed 09/20/2023 12:34 PM MANAGER VIDEO GLUCOSE POCT, B Routine 09/20/2023 7:47 AM MANAGER VIDEO CBC NO CALL BACK, REFLEX T/S Routine 09/20/2023 6:18 AM MANAGER VIDEO C-REACTIVE PROTEIN (CRP), S/P Routine 09/20/2023 6:18 AM MANAGER VIDEO URIC ACID, S/P Routine 09/20/2023 6:18 AM MANAGER VIDEO PHOSPHORUS (INORGANIC), S Routine 09/20/2023 6:18 AM MANAGER VIDEO MAGNESIUM, S Routine 09/20/2023 6:18 AM MANAGER VIDEO BASIC METABOLIC PANEL, S/P Routine 09/20/2023 6:18 AM MANAGER VIDEO GLUCOSE POCT, B Routine 09/19/2023 9:[address] HEAD WITHOUT IV CONTRAST RAD - Emergent (Fastest; for the most critically ill patients) 09/19/2023 4:[address] HEAD NECK ANGIOGRAM WITH IV CONTRAST RAD - Emergent (Fastest; for the most critically ill patients) 09/19/2023 4:12 PM MANAGER VIDEO GLUCOSE POCT, B Routine 09/19/2023 3:12 PM MANAGER VIDEO GLUCOSE POCT, B Routine 09/19/2023 11:42 AM MANAGER VIDEO GLUCOSE POCT, B Routine 09/19/2023 9:31 AM MANAGER VIDEO GLUCOSE POCT, B Routine 09/19/2023 7:37 AM MANAGER VIDEO CBC WITH DIFFERENTIAL, B Routine 09/19/2023 5:46 AM MANAGER VIDEO PHOSPHORUS (INORGANIC), S Routine 09/19/2023 5:46 AM MANAGER VIDEO MAGNESIUM, S Routine 09/19/2023 5:46 AM MANAGER VIDEO BASIC METABOLIC PANEL, S/P Routine 09/19/2023 5:46 AM MANAGER VIDEO GLUCOSE POCT, B Routine 09/18/2023 9:21 PM MANAGER VIDEO GLUCOSE POCT, B Routine 09/18/2023 4:56 PM MANAGER VIDEO PHOSPHORUS (INORGANIC), S Timed 09/18/2023 3:57 PM MANAGER VIDEO MAGNESIUM, S Timed 09/18/2023 3:57 PM MANAGER VIDEO BASIC METABOLIC PANEL, S/P Timed 09/18/2023 3:57 PM MANAGER VIDEO GLUCOSE POCT, B Routine 09/18/2023 12:39 PM MANAGER VIDEO DX ABDOMEN 1 VIEW RAD - Routine (most inpatients and all outpatients) 09/18/2023 10:10 AM MANAGER VIDEO GLUCOSE POCT, B Routine 09/18/2023 7:47 AM MANAGER VIDEO CBC WITH DIFFERENTIAL, B Routine 09/18/2023 5:16 AM MANAGER VIDEO PHOSPHORUS (INORGANIC), S Routine 09/18/2023 5:16 AM MANAGER VIDEO MAGNESIUM, S Routine 09/18/2023 5:16 AM MANAGER VIDEO BASIC METABOLIC PANEL, S/P Routine 09/18/2023 5:16 AM MANAGER VIDEO GLUCOSE POCT, B Routine 09/17/2023 9:00 PM MANAGER VIDEO GLUCOSE POCT, B Routine 09/17/2023 5:15 PM MANAGER VIDEO FL FLUORO LESS THAN 1 HOUR RAD - Routine (most inpatients and all outpatients) 09/17/2023 3:39 PM MANAGER VIDEO SURGICAL PATHOLOGY Routine 09/17/2023 3: 21 PM MANAGER VIDEO UPPER GI ENDOSCOPY Routine 09/17/2023 2: 36 PM MANAGER VIDEO EGD (ESOPHAGEALGASTRODUO DENOSCOPY) Routine 09/17/2023 2:36 PM MANAGER VIDEO GLUCOSE POCT, B Routine 09/17/2023 12:03 PM MANAGER VIDEO DX ABDOMEN 1 VIEW RAD - Routine (most inpatients and all outpatients) 09/17/2023 9:38 AM MANAGER VIDEO GLUCOSE POCT, B Routine 09/17/2023 7:54 AM MANAGER VIDEO CBC WITH DIFFERENTIAL, B Routine 09/17/2023 7:26 AM MANAGER VIDEO BASIC METABOLIC PANEL, S/P Routine 09/17/2023 7:26 AM MANAGER VIDEO GLUCOSE POCT, B Routine 09/17/2023 3:37 AM MANAGER VIDEO GLUCOSE POCT, B Routine 09/16/2023 9:07 PM MANAGER VIDEO GLUCOSE POCT, B Routine 09/16/2023 7:06 PM MANAGER VIDEO GLUCOSE POCT, B Routine 09/16/2023 6:22 PM MANAGER VIDEO GLUCOSE POCT, B Routine 09/16/2023 5:17 PM MANAGER VIDEO GLUCOSE POCT, B Routine 09/16/2023 4:49 PM MANAGER VIDEO GLUCOSE POCT, B Routine 09/16/2023 12:59 PM MANAGER VIDEO DX ABDOMEN 1 VIEW RAD - Routine (most inpatients and all outpatients) 09/16/2023 11:20 AM MANAGER VIDEO GLUCOSE POCT, B Routine 09/16/2023 10:17 AM MANAGER VIDEO GLUCOSE POCT, B Routine 09/16/2023 9:12 AM MANAGER VIDEO CBC WITH DIFFERENTIAL, B Routine 09/16/2023 8:01 AM MANAGER VIDEO BASIC METABOLIC PANEL, S/P Routine 09/16/2023 8:01 AM MANAGER VIDEO EBV DNA DETECT/QUANT, P Routine 09/16/2023 5:14 AM MANAGER VIDEO CMV DNA DETECT/QUANT, P Routine 09/16/2023 5:14 AM MANAGER VIDEO GLUCOSE POCT, B Routine 09/15/2023 9:45 PM MANAGER VIDEO GLUCOSE POCT, B Routine 09/15/2023 4:25 PM MANAGER VIDEO GLUCOSE POCT, B Routine 09/15/2023 11:27 AM MANAGER VIDEO GLUCOSE POCT, B Routine 09/15/2023 8:29 AM MANAGER VIDEO DX ABDOMEN 1 VIEW RAD - Routine (most inpatients and all outpatients) 09/15/2023 8:24 AM MANAGER VIDEO CBC WITH DIFFERENTIAL, B Routine 09/15/2023 5:05 AM MANAGER VIDEO LACTATE DEHYDROGENASE (LD), S Routine 09/15/2023 5:05 AM MANAGER VIDEO COMPREHENSIVE METABOLIC PANEL, S/P Routine 09/15/2023 5:05 AM MANAGER VIDEO HAPTOGLOBIN, S Routine 09/15/2023 5:02 AM MANAGER VIDEO DX ABDOMEN PORTABLE ANTERIOR POSTERIOR 1 VIEW RAD - Semiurgent (Fast; most ED patients; some inpatients) 09/14/2023 10:[address] ABDOMEN PELVIS WITH IV CONTRAST RAD - Semiurgent (Fast; most ED patients; some inpatients) 09/14/2023 9:20 PM MANAGER VIDEO INFLUENZA A, B, RSV, PCR, RAPID, V STAT 09/14/2023 8:28 PM MANAGER VIDEO DIPSTICK, U STAT 09/14/2023 8:28 PM MANAGER VIDEO SARS CORONAVIRUS 2, PCR RAPID, V STAT 09/14/2023 8:28 PM MANAGER VIDEO MICROSCOPIC MANUAL STAT 09/14/2023 8: 28 PM MANAGER VIDEO BACTERIAL CULTURE, AEROBIC + SUSC, URINE STAT 09/14/2023 8:28 PM MANAGER VIDEO PH, U STAT 09/14/2023 8:28 PM MANAGER VIDEO OSMOLALITY, U STAT 09/14/2023 8:28 PM MANAGER VIDEO URINALYSIS WITH MICROSCOPIC STAT 09/14/2023 8:28 PM MANAGER VIDEO LACTATE DEHYDROGENASE (LD), S STAT 09/14/2023 8:18 PM MANAGER VIDEO LACTATE FOR SEPSIS WITH REFLEX, POCT STAT 09/14/2023 8:14 PM MANAGER VIDEO SPSMA RESULT Routine 09/14/2023 8:14 PM MANAGER VIDEO BACTERIA / JOEL CULTURE, BLOOD STAT 09/14/2023 8:14 PM MANAGER VIDEO BACTERIA / JOEL CULTURE, BLOOD STAT 09/14/2023 8:14 PM MANAGER VIDEO CBC WITH DIFFERENTIAL, B STAT 09/14/2023 8:14 PM MANAGER VIDEO URIC ACID, S/P STAT 09/14/2023 8:14 PM MANAGER VIDEO PHOSPHORUS (INORGANIC), S STAT 09/14/2023 8:14 PM MANAGER VIDEO BASIC METABOLIC PANEL, S/P STAT 09/14/2023 8:14 PM MANAGER VIDEO ECG STAT 09/14/2023 7:57 PM MANAGER VIDEO RETICULOCYTES, B Routine 09/14/2023 7:57 PM MANAGER VIDEO documented in this encounter Results * (ABNORMAL) Glucose, POCT (10/02/2023 1:05 PM MANAGER VIDEO) Pathologist [facility] Glucose, POCT, B 147(H) 70 - 140 mg/dL 10/02/2023 1:14 PM MANAGER VIDEO PCDE Site Capillary 10/02/2023 1:14 PM MANAGER VIDEO PCDE Last Intake ContTubFdg 10/02/2023 1:14 PM MANAGER VIDEO PCDE Blood 10/02/2023 1:05 PM MANAGER VIDEO 10/02/2023 1:14 PM MANAGER VIDEO Unknown Provider LAB POCT ORDERABLES- MANUAL POC [facility] [address] [place] [address], [facility] PCDE [facility] POC [address] [place] [address] * (ABNORMAL) Hemoglobin (10/02/2023 8:36 AM MANAGER VIDEO) [facility] Hemoglobin 7.9(L) 13.2 - 16.6 g/dL 10/02/2023 9:09 AM MANAGER VIDEO DTL Blood (Blood, Venous) 10/02/2023 8:36 AM MANAGER VIDEO 10/02/2023 8:55 AM MANAGER VIDEO Alessandro Gonzáles M.D. LAB BLOOD ADD-ON [facility] [address] [place] [address], [facility] DTL [facility] [address] [place] [address] * Glucose, POCT (10/02/2023 8:29 AM MANAGER VIDEO) Glucose, POCT, B 134 70 - 140 mg/dL 10/02/2023 8:44 AM MANAGER VIDEO PCDE Site Capillary 10/02/2023 8:44 AM MANAGER VIDEO PCDE Last Intake ContTubFdg 10/02/2023 8:44 AM MANAGER VIDEO PCDE Blood 10/02/2023 8:29 AM MANAGER VIDEO 10/02/2023 8:44 AM MANAGER VIDEO Unknown Provider LAB POCT ORDERABLES- MANUAL Performing Organization Address City/[facility]/ZIP Co de Phone Number POC [facility] [address] [place] [address], [facility] PCDE [facility] POC [address] [place] [address] * Glucose, POCT (10/02/2023 6:27 AM MANAGER VIDEO) [facility] Glucose, POCT, B 135 70 - 140 mg/dL 10/02/2023 6:29 AM MANAGER VIDEO PCDE Site Capillary 10/02/2023 6:29 AM MANAGER VIDEO PCDE Last Intake ContTubFdg 10/02/2023 6:29 AM MANAGER VIDEO PCDE Blood 10/02/2023 6:27 AM MANAGER VIDEO 10/02/2023 6:29 AM MANAGER VIDEO Unknown Provider LAB POCT ORDERABLES- MANUAL POC [facility] [address] [place] [address], [facility] PCDE [facility] POC [address] [place] [address] * Type and Screen (with Reflex Antibody ID) (10/02/2023 5:51 AM MANAGER VIDEO) Pathologist [facility] ABORh A Pos Not applicable 10/02/2023 8:32 AM MANAGER VIDEO ETRM Antibody Screen Negative Negative 10/02/2023 8:39 AM MANAGER VIDEO ETRM Type & Screen Expiration 10/05/2023 23:59 10/02/2023 8:32 AM MANAGER VIDEO ETRM Testing Location Lisa DEFAULT 10/02/2023 7:56 AM MANAGER VIDEO ETRM Blood 10/02/2023 5:51 AM MANAGER VIDEO 10/02/2023 7:56 AM MANAGER VIDEO Renee Mancilla M.D. LAB BLOOD BANK TEST ORDERABLES [facility] [address] [place] [address], [facility] ETRM [facility] [address] [place] [address] * (ABNORMAL) Basic Metabolic Panel (10/02/2023 5:51 AM MANAGER VIDEO) Potassium, S 4.1 3.6 - 5.2 mmol/L 10/02/2023 6:53 AM MANAGER VIDEO DTL Sodium, S 134(L) 135 - 145 mmol/L 10/02/2023 6:53 AM MANAGER VIDEO DTL Chloride, S 100 98 - 107 mmol/L 10/02/2023 6:53 AM MANAGER VIDEO DTL Bicarbonate, S 23 22 - 29 mmol/L 10/02/2023 6:53 AM MANAGER VIDEO DTL Anion Gap 11 7 - 15 10/02/2023 6:53 AM MANAGER VIDEO DTL BUN (Blood Urea Nitrogen), S 31(H) 8 - 24 mg/dL 10/02/2023 6:53 AM MANAGER VIDEO DTL Creatinine 0.78 0.74 - 1.35 mg/dL 10/02/2023 6:53 AM MANAGER VIDEO DTL Estimated GFR (eGFR) >90 >=60 mL/min/BSA 10/02/2023 6:53 AM MANAGER VIDEO DTL Comment: Estimated GFR calculated using the 2020 CKD_EPI creatinine equation. Calcium, Total, S 7.5(L) 8.8 - 10.2 mg/dL 10/02/2023 6:53 AM MANAGER VIDEO DTL Glucose, S 127 70 - 140 mg/dL 10/02/2023 6:53 AM MANAGER VIDEO DTL Blood (Blood, Venous) 10/02/2023 5:51 AM MANAGER VIDEO 10/02/2023 6:35 AM MANAGER VIDEO Sarah Reardon M.D. LAB BLOOD ADD-ON Performing Organization Address City/[facility]/ZIP Co de Phone Number [facility] [address] [place] [address] * Magnesium (10/02/2023 5:51 AM MANAGER VIDEO) Pathologist [facility] Magnesium, S 1.9 1.7 - 2.3 mg/dL 10/02/2023 6:53 AM MANAGER VIDEO DTL Blood (Blood, Venous) 10/02/2023 5:51 AM MANAGER VIDEO 10/02/2023 6:35 AM MANAGER VIDEO Alessandro Gonzáles M.D. LAB BLOOD ADD-ON Performing Organization Address City/[facility] Co de Phone Number [facility] [address] [place] [address], [facility] [address] [place] [address] * (ABNORMAL) CBC no call back, reflex T/S HGB <8 (10/02/2023 5:51 AM MANAGER VIDEO) Pathologist [facility] Hemoglobin 7.8(L) 13.2 - 16.6 g/dL 10/02/2023 6:31 AM MANAGER VIDEO DTL Hematocrit 24.2(L) 38.3 - 48.6 % 10/02/2023 6:31 AM MANAGER VIDEO DTL Erythrocytes 2.57(L) 4.35 - 5.65 x10(12)/L 10/02/2023 6:31 AM MANAGER VIDEO DTL MCV 94.2 78.2 - 97.9 fL 10/02/2023 6:31 AM MANAGER VIDEO DTL RBC Distrib Width 16.5(H) 11.8 - 14.5 % 10/02/2023 6:31 AM MANAGER VIDEO DTL Platelet Count 154 135 - 317 x10(9)/L 10/02/2023 6:31 AM MANAGER VIDEO DTL Leukocytes 3.9 3.4 - 9.6 x10(9)/L 10/02/2023 6:31 AM MANAGER VIDEO DTL Neutrophils 3.26 1.56 - 6.45 x10(9)/L 10/02/2023 6:31 AM MANAGER VIDEO DHPM Lymphocytes 0.20(L) 0.95 - 3.07 x10(9)/L 10/02/2023 6:31 AM MANAGER VIDEO DTL Monocytes 0.27 0.26 - 0.81 x10(9)/L 10/02/2023 6:31 AM MANAGER VIDEO DTL Eosinophils 0.18 0.03 - 0.48 x10(9)/L 10/02/2023 6:31 AM MANAGER VIDEO DTL Basophils <0.03 0.01 - 0.08 x10(9)/L 10/02/2023 6:31 AM MANAGER VIDEO DTL Blood (Blood, Venous) 10/02/2023 5:51 AM MANAGER VIDEO 10/02/2023 6:20 AM MANAGER VIDEO Renee Mancilla M.D. LAB BLOOD NON ADD-ON Performing Organization Address City/[facility]/ZIP Co de Phone Number [facility] [address] [place] [address], [facility] DTL [facility] [address] [place] [address] DHPM [facility] [address] [place] [address] * (ABNORMAL) Glucose, POCT (10/01/2023 8:48 PM MANAGER VIDEO) [facility] Glucose, POCT, B 142(H) 70 - 140 mg/dL 10/01/2023 9:07 PM MANAGER VIDEO PCDE Site Capillary 10/01/2023 9:07 PM MANAGER VIDEO PCDE Last Intake > 4 hours 10/01/2023 9:07 PM MANAGER VIDEO PCDE Blood 10/01/2023 8:48 PM MANAGER VIDEO 10/01/2023 9:08 PM MANAGER VIDEO Unknown Provider LAB POCT ORDERABLES- MANUAL POC [facility] [address] [place] [address], [facility] PCDE [facility] [address] [place] [address] * Glucose, POCT (10/01/2023 7:37 PM MANAGER VIDEO) Glucose, POCT, B 140 70 - 140 mg/dL 10/01/2023 7:43 PM MANAGER VIDEO PCDE Last Intake 2-3 hours 10/01/2023 7:43 PM MANAGER VIDEO PCDE Blood 10/01/2023 7:37 PM MANAGER VIDEO 10/01/2023 7:43 PM MANAGER VIDEO Unknown Provider LAB POCT ORDERABLES- MANUAL Performing Organization Address City/[facility]/ZIP Co de Phone Number POC [facility] [address] [place] [address], [facility] PCDE [facility] POC [address] [place] [address] * (ABNORMAL) Glucose, POCT (10/01/2023 4:16 PM MANAGER VIDEO) Glucose, POCT, B 154(H) 70 - 140 mg/dL 10/01/2023 4:19 PM MANAGER VIDEO PCDE Last Intake 2-3 hours 10/01/2023 4:19 PM MANAGER VIDEO PCDE Blood 10/01/2023 4:16 PM MANAGER VIDEO 10/01/2023 4:20 PM MANAGER VIDEO Unknown Provider LAB POCT ORDERABLES- MANUAL Performing Organization Address City/[facility] Co de Phone Number POC [facility] [address] [place] [address], [facility] PCDE [facility] POC [address] [place] [address] * (ABNORMAL) Glucose, POCT (10/01/2023 12:44 PM MANAGER VIDEO) Glucose, POCT, B 142(H) 70 - 140 mg/dL 10/01/2023 12:58 PM MANAGER VIDEO PCDE Site Capillary 10/01/2023 12:58 PM MANAGER VIDEO PCDE Last Intake 3-4 hours 10/01/2023 12:58 PM MANAGER VIDEO PCDE Blood 10/01/2023 12:4 4 PM MANAGER VIDEO 10/01/2023 12:58 PM MANAGER VIDEO Unknown Provider LAB POCT ORDERABLES- MANUAL POC [facility] [address] [place] [address], [facility] PCDE [facility] POC [address] [place] [address] * (ABNORMAL) CBC with Differential, Blood (10/01/2023 11:57 AM MANAGER VIDEO) Hemoglobin 8.8(L) 13.2 - 16.6 g/dL 10/01/2023 12:20 PM MANAGER VIDEO DTL Hematocrit 27.0(L) 38.3 - 48.6 % 10/01/2023 12:20 PM MANAGER VIDEO DTL Erythrocytes 2.87(L) 4.35 - 5.65 x10(12)/L 10/01/2023 12:20 PM MANAGER VIDEO DTL MCV 94.1 78.2 - 97.9 fL 10/01/2023 12:20 PM MANAGER VIDEO DTL RBC Distrib Width 16.7(H) 11.8 - 14.5 % 10/01/2023 12:20 PM MANAGER VIDEO DTL Platelet Count 186 135 - 317 x10(9)/L 10/01/2023 12:20 PM MANAGER VIDEO DTL Leukocytes 5.7 3.4 - 9.6 x10(9)/L 10/01/2023 12:20 PM MANAGER VIDEO DTL Neutrophils 5.04 1.56 - 6.45 x10(9)/L 10/01/2023 12:20 PM MANAGER VIDEO DH[facility] Lymphocytes 0.13(L) 0.95 - 3.07 x10(9)/L 10/01/2023 12:20 PM MANAGER VIDEO DTL Monocytes 0.32 0.26 - 0.81 x10(9)/L 10/01/2023 12:20 PM MANAGER VIDEO DTL Eosinophils 0.21 0.03 - 0.48 x10(9)/L 10/01/2023 12:20 PM MANAGER VIDEO DTL Basophils <0.03 0.01 - 0.08 x10(9)/L 10/01/2023 12:20 PM MANAGER VIDEO DTL Blood (Blood, Venous) 10/01/2023 11:57 AM MANAGER VIDEO 10/01/2023 12:09 PM MANAGER VIDEO Alessandro Gonzáles M.D. LAB BLOOD ADD-ON [facility] [address] [place] [address], [facility] DTL [facility] [address] [place] [address] [facility] [address] [place] [address] * (ABNORMAL) Glucose, POCT (10/01/2023 7:06 AM MANAGER VIDEO) Glucose, POCT, B 165(H) 70 - 140 mg/dL 10/01/2023 7:08 AM MANAGER VIDEO PCDE Site Capillary 10/01/2023 7:08 AM MANAGER VIDEO PCDE Blood 10/01/2023 7:06 AM MANAGER VIDEO 10/01/2023 7:08 AM MANAGER VIDEO Unknown Provider LAB POCT ORDERABLES- MANUAL POC [facility] [address] [place] [address], [facility] PCDE [facility] POC [address] [place] [address] * (ABNORMAL) Basic Metabolic Panel (10/01/2023 5:22 AM MANAGER VIDEO) Potassium, S 4.8 3.6 - 5.2 mmol/L 10/01/2023 6:05 AM MANAGER VIDEO DTL Sodium, S 133(L) 135 - 145 mmol/L 10/01/2023 6:05 AM MANAGER VIDEO DTL Chloride, S 100 98 - 107 mmol/L 10/01/2023 6:05 AM MANAGER VIDEO DTL Bicarbonate, S 25 22 - 29 mmol/L 10/01/2023 6:05 AM MANAGER VIDEO DTL Anion Gap 8 7 - 15 10/01/2023 6:05 AM MANAGER VIDEO DTL BUN (Blood Urea Nitrogen), S 22 8 - 24 mg/dL 10/01/2023 6:05 AM MANAGER VIDEO DTL Creatinine 0.67(L) 0.74 - 1.35 mg/dL 10/01/2023 6:05 AM MANAGER VIDEO DTL Estimated GFR (eGFR) >90 >=60 mL/min/BSA 10/01/2023 6:05 AM MANAGER VIDEO DTL Comment: Estimated GFR calculated using the 2020 CKD_EPI creatinine equation. Calcium, Total, S 8.3(L) 8.8 - 10.2 mg/dL 10/01/2023 6:05 AM MANAGER VIDEO DTL Glucose, S 136 70 - 140 mg/dL 10/01/2023 6:05 AM MANAGER VIDEO DTL Blood (Blood, Venous) 10/01/2023 5:22 AM MANAGER VIDEO 10/01/2023 5:48 AM MANAGER VIDEO Sarah Reardon M.D. LAB BLOOD ADD-ON [facility] [address] [place] [address] * Phosphorus Inorganic (10/01/2023 5:22 AM MANAGER VIDEO) Phosphorus (Inorganic), S 3.4 2.5 - 4.5 mg/dL 10/01/2023 6:05 AM MANAGER VIDEO DT Blood (Blood, Venous) 10/01/2023 5:22 AM MANAGER VIDEO 10/01/2023 5:48 AM MANAGER VIDEO Renee Mancilla M.D. LAB BLOOD ADD-ON Performing Organization Address [facility] Co de Phone Number [facility] [address] [place], [place] [id number] [place] [address] [address] [place] [address] * (ABNORMAL) Magnesium (10/01/2023 5:22 AM MANAGER VIDEO) Magnesium, S 1.6(L) 1.7 - 2.3 mg/dL 10/01/2023 6:05 AM MANAGER VIDEO DTL Blood (Blood, Venous) 10/01/2023 5:22 AM MANAGER VIDEO 10/01/2023 5:48 AM MANAGER VIDEO Renee Mancilla M.D. LAB BLOOD ADD-ON Performing Organization Address City/[facility]/ZIP Co de Phone Number [facility] [address] DTL [facility] [address] [place] [address] * (ABNORMAL) Glucose, POCT (09/30/2023 8:33 PM MANAGER VIDEO) Glucose, POCT, B 147(H) 70 - 140 mg/dL 09/30/2023 8:38 PM MANAGER VIDEO PCDE Last Intake 2-3 hours 09/30/2023 8:38 PM MANAGER VIDEO PCDE Blood 09/30/2023 8:33 PM MANAGER VIDEO 09/30/2023 8:38 PM MANAGER VIDEO Unknown Provider LAB POCT ORDERABLES- MANUAL Performing Organization Address City/[facility]/ZIP Co de Phone Number POC [facility] [address] [place] [address], [facility] PCDE [facility] POC [address] [place] [address] * Glucose, POCT (09/30/2023 5:29 PM MANAGER VIDEO) Glucose, POCT, B 118 70 - 140 mg/dL 09/30/2023 5:36 PM MANAGER VIDEO PCDE Site Capillary 09/30/2023 5:36 PM MANAGER VIDEO PCDE Last Intake [id number] 09/30/2023 5:36 PM MANAGER VIDEO PCDE Blood 09/30/2023 5:29 PM MANAGER VIDEO 09/30/2023 5:36 PM MANAGER VIDEO Unknown Provider LAB POCT ORDERABLES- MANUAL POC [facility] [address] [place] [address], [facility] PCDE [facility] POC [address] [place] [address] * Glucose, POCT (09/30/2023 12:10 PM MANAGER VIDEO) Glucose, POCT, B 140 70 - 140 mg/dL 09/30/2023 12:13 PM MANAGER VIDEO PCDE Site Capillary 09/30/2023 12:13 PM MANAGER VIDEO PCDE Last Intake > 4 hours 09/30/2023 12:13 PM MANAGER VIDEO PCDE Blood 09/30/2023 12:1 0 PM MANAGER VIDEO 09/30/2023 12:13 PM MANAGER VIDEO Unknown Provider LAB POCT ORDERABLES- MANUAL POC [facility] [address] [place] [address], [place] PCDE [facility] [address] [place] [address] * DX Abdomen 1 View (09/30/2023 11:04 AM MANAGER VIDEO) Anatomical Region Laterality Modality Abdomen, Abdominal RST LOS, Abdominal ARZ LOS, Abdominal FLA LOS N/A Digital Radiography Impressions 09/30/2023 11:45 AM MANAGER VIDEO PEG tube with jejunal extension with tip terminating in the proximal jejunum, grossly unchanged in position since 09/27/2023. Positive enteric contrast within the transverse and descending colon. Nonobstructive bowel gas pattern. Visualized lung bases are clear. L4-L5 laminectomies. Vascular calcifications. Narrative 09/30/2023 11:45 AM MANAGER VIDEO EXAM: ??DX ABDOMEN 1 VIEW Procedure Note Maira Kwon M.D. - 09/30/2023 EXAM: DX ABDOMEN 1 VIEW IMPRESSION: PEG tube with jejunal extension with tip terminating in the proximaljejunum, grossly unchanged in position since 09/27/2023. Positive entericcontrast within the transverse and descending colon. Nonobstructive bowelgas pattern. Visualized lung bases are clear. L4-L5 laminectomies. Vascularcalcifications. Alessandro Gonzáles M.D. [facility] PROCEDURES * Glucose, POCT (09/30/2023 9:51 AM MANAGER VIDEO) Glucose, POCT, B 130 70 - 140 mg/dL 09/30/2023 10:11 AM MANAGER VIDEO PCDE Site Capillary 09/30/2023 10:11 AM MANAGER VIDEO PCDE Last Intake > 4 hours 09/30/2023 10:11 AM MANAGER VIDEO PCDE Blood 09/30/2023 9:51 AM MANAGER VIDEO 09/30/2023 10:11 AM MANAGER VIDEO Unknown Provider LAB POCT ORDERABLES- MANUAL Performing Organization Address City/[facility]/ZIP Co de Phone Number POC [facility] [address] [place] [address], [facility] PCDE [facility] [address] [place] [address] * (ABNORMAL) Basic Metabolic Panel (09/30/2023 5:26 AM MANAGER VIDEO) Potassium, S 4.7 3.6 - 5.2 mmol/L 09/30/2023 6:31 AM MANAGER VIDEO DTL Sodium, S 133(L) 135 - 145 mmol/L 09/30/2023 6:31 AM MANAGER VIDEO DTL Chloride, S 98 98 - 107 mmol/L 09/30/2023 6:31 AM MANAGER VIDEO DTL Bicarbonate, S 29 22 - 29 mmol/L 09/30/2023 6:31 AM MANAGER VIDEO DTL Anion Gap 6(L) 7 - 15 09/30/2023 6:31 AM MANAGER VIDEO DTL BUN (Blood Urea Nitrogen), S 30(H) 8 - 24 mg/dL 09/30/2023 6:31 AM MANAGER VIDEO DTL Creatinine 0.70(L) 0.74 - 1.35 mg/dL 09/30/2023 6:31 AM MANAGER VIDEO DTL Estimated GFR (eGFR) >90 >=60 mL/min/BSA 09/30/2023 6:31 AM MANAGER VIDEO DTL Comment: Estimated GFR calculated using the 2020 CKD_EPI creatinine equation. Calcium, Total, S 8.3(L) 8.8 - 10.2 mg/dL 09/30/2023 6:31 AM MANAGER VIDEO DTL Glucose, S 129 70 - 140 mg/dL 09/30/2023 6:31 AM MANAGER VIDEO DTL Blood (Blood, Venous) 09/30/2023 5:26 AM MANAGER VIDEO 09/30/2023 6:15 AM MANAGER VIDEO Sarah Reardon M.D. LAB BLOOD ADD-ON [facility] [address] [place] [address], [place] DTL [facility] [address] [place] [address] * Phosphorus Inorganic (09/30/2023 5:26 AM MANAGER VIDEO) Pathologist [facility] Phosphorus (Inorganic), S 3.3 2.5 - 4.5 mg/dL 09/30/2023 6:31 AM MANAGER VIDEO DTL Blood (Blood, Venous) 09/30/2023 5:26 AM MANAGER VIDEO 09/30/2023 6:15 AM MANAGER VIDEO Renee Mancilla M.D. LAB BLOOD ADD-ON Performing Organization Address City/[facility]/ZIP Co de Phone Number [facility] [address] [place], [place] [id number] [place] [address] [address] [place] [address] * Magnesium (09/30/2023 5:26 AM MANAGER VIDEO) Pathologist [facility] Magnesium, S 1.7 1.7 - 2.3 mg/dL 09/30/2023 6:31 AM MANAGER VIDEO DTL Blood (Blood, Venous) 09/30/2023 5:26 AM MANAGER VIDEO 09/30/2023 6:15 AM MANAGER VIDEO Renee Mancilla M.D. LAB BLOOD ADD-ON Performing Organization Address City/[facility]/ZIP Co de Phone Number [facility] [address] [place], [place] [id number] [place] [address] [address] [place] [address] * (ABNORMAL) CBC no call back, reflex T/S HGB <8 (09/30/2023 5:26 AM MANAGER VIDEO) Pathologist [facility] Hemoglobin 8.5(L) 13.2 - 16.6 g/dL 09/30/2023 6:09 AM MANAGER VIDEO DTL Hematocrit 25.9(L) 38.3 - 48.6 % 09/30/2023 6:09 AM MANAGER VIDEO DTL Erythrocytes 2.82(L) 4.35 - 5.65 x10(12)/L 09/30/2023 6:09 AM MANAGER VIDEO DTL MCV 91.8 78.2 - 97.9 fL 09/30/2023 6:09 AM MANAGER VIDEO DTL RBC Distrib Width 16.8(H) 11.8 - 14.5 % 09/30/2023 6:09 AM MANAGER VIDEO DTL Platelet Count 192 135 - 317 x10(9)/L 09/30/2023 6:09 AM MANAGER VIDEO DTL Leukocytes 10.5(H) 3.4 - 9.6 x10(9)/L 09/30/2023 6:09 AM MANAGER VIDEO DTL Neutrophils 9.40(H) 1.56 - 6.45 x10(9)/L 09/30/2023 6:09 AM MANAGER VIDEO DHPM Lymphocytes 0.27(L) 0.95 - 3.07 x10(9)/L 09/30/2023 6:09 AM MANAGER VIDEO DTL Monocytes 0.45 0.26 - 0.81 x10(9)/L 09/30/2023 6:09 AM MANAGER VIDEO DTL Eosinophils 0.35 0.03 - 0.48 x10(9)/L 09/30/2023 6:09 AM MANAGER VIDEO DTL Basophils <0.03 0.01 - 0.08 x10(9)/L 09/30/2023 6:09 AM MANAGER VIDEO DTL Blood (Blood, Venous) 09/30/2023 5:26 AM MANAGER VIDEO 09/30/2023 5:58 AM MANAGER VIDEO Renee Mancilla M.D. LAB BLOOD NON ADD-ON [facility] [address] [place] [address], [facility] DTL [facility] [address] [place] [address] DHPM [facility] [address] [place] [address] * (ABNORMAL) Glucose, POCT (09/29/2023 9:05 PM MANAGER VIDEO) [facility] Glucose, POCT, B 175(H) 70 - 140 mg/dL 09/29/2023 9:20 PM MANAGER VIDEO PCDE Site Capillary 09/29/2023 9:20 PM MANAGER VIDEO PCDE Last Intake ContTubFdg 09/29/2023 9:20 PM MANAGER VIDEO PCDE Blood 09/29/2023 9:05 PM MANAGER VIDEO 09/29/2023 9:20 PM MANAGER VIDEO Unknown Provider LAB POCT ORDERABLES- MANUAL POC [facility] [address] [place] [address], [place] PCDE [facility] POC [address] [place] [address] * (ABNORMAL) Glucose, POCT (09/29/2023 6:03 PM MANAGER VIDEO) Glucose, POCT, B 217(H) 70 - 140 mg/dL 09/29/2023 6:08 PM MANAGER VIDEO PCDE Last Intake 3-4 hours 09/29/2023 6:08 PM MANAGER VIDEO PCDE Blood 09/29/2023 6:03 PM MANAGER VIDEO 09/29/2023 6:08 PM MANAGER VIDEO Unknown Provider LAB POCT ORDERABLES- MANUAL POC [facility] [address] [place] [address], [place] PCDE [facility] POC [address] [place] [address] * (ABNORMAL) Glucose, POCT (09/29/2023 1:43 PM MANAGER VIDEO) Glucose, POCT, B 186(H) 70 - 140 mg/dL 09/29/2023 1:52 PM MANAGER VIDEO PCDE Site Capillary 09/29/2023 1:52 PM MANAGER VIDEO PCDE Last Intake <1 hour 09/29/2023 1:52 PM MANAGER VIDEO PCDE Blood 09/29/2023 1:43 PM MANAGER VIDEO 09/29/2023 1:52 PM MANAGER VIDEO Unknown Provider LAB POCT ORDERABLES- MANUAL POC [facility] [address] [place] [address], [place] PCDE [facility] POC [address] [place] [address] * Glucose, POCT (09/29/2023 5:58 AM MANAGER VIDEO) Pathologist [facility] Glucose, POCT, B 113 70 - 140 mg/dL 09/29/2023 6:01 AM MANAGER VIDEO PCDE Site Capillary 09/29/2023 6:01 AM MANAGER VIDEO PCDE Last Intake 3-4 hours 09/29/2023 6:01 AM MANAGER VIDEO PCDE Blood 09/29/2023 5:58 AM MANAGER VIDEO 09/29/2023 6:01 AM MANAGER VIDEO Unknown Provider LAB POCT ORDERABLES- MANUAL POC [facility] [address] [place] [address], [facility] PCDE [facility] POC [address] [place] [address] * (ABNORMAL) CBC no call back, reflex T/S HGB <8 (09/29/2023 5:30 AM MANAGER VIDEO) Pathologist [facility] Hemoglobin 9.0(L) 13.2 - 16.6 g/dL 09/29/2023 5:50 AM MANAGER VIDEO DTL Hematocrit 28.1(L) 38.3 - 48.6 % 09/29/2023 5:50 AM MANAGER VIDEO DTL Erythrocytes 2.99(L) 4.35 - 5.65 x10(12)/L 09/29/2023 5:50 AM MANAGER VIDEO DTL MCV 94.0 78.2 - 97.9 fL 09/29/2023 5:50 AM MANAGER VIDEO DTL RBC Distrib Width 16.9(H) 11.8 - 14.5 % 09/29/2023 5:50 AM MANAGER VIDEO DTL Platelet Count 227 135 - 317 x10(9)/L 09/29/2023 5:50 AM MANAGER VIDEO DTL Leukocytes 8.3 3.4 - 9.6 x10(9)/L 09/29/2023 5:50 AM MANAGER VIDEO DTL Neutrophils 7.04(H) 1.56 - 6.45 x10(9)/L 09/29/2023 5:50 AM MANAGER VIDEO DHPM Lymphocytes 0.40(L) 0.95 - 3.07 x10(9)/L 09/29/2023 5:50 AM MANAGER VIDEO DTL Monocytes 0.44 0.26 - 0.81 x10(9)/L 09/29/2023 5:50 AM MANAGER VIDEO DTL Eosinophils 0.40 0.03 - 0.48 x10(9)/L 09/29/2023 5:50 AM MANAGER VIDEO DTL Basophils 0.03 0.01 - 0.08 x10(9)/L 09/29/2023 5:50 AM MANAGER VIDEO DTL Blood (Blood, Venous) 09/29/2023 5:30 AM MANAGER VIDEO 09/29/2023 5:39 AM MANAGER VIDEO Carolee Garcia M.D. LAB BLOOD NON ADD-ON [facility] [address] [place] [address], [facility] DTL [facility] [address] [place], [place] [address] [place] [address] [place] [address] * (ABNORMAL) Basic Metabolic Panel (09/29/2023 5:30 AM MANAGER VIDEO) [facility] Potassium, S 5.0 3.6 - 5.2 mmol/L 09/29/2023 6:20 AM MANAGER VIDEO DTL Sodium, S 135 135 - 145 mmol/L 09/29/2023 6:20 AM MANAGER VIDEO DTL Chloride, S 100 98 - 107 mmol/L 09/29/2023 6:20 AM MANAGER VIDEO DTL Bicarbonate, S 27 22 - 29 mmol/L 09/29/2023 6:20 AM MANAGER VIDEO DTL Anion Gap 8 7 - 15 09/29/2023 6:20 AM MANAGER VIDEO DTL BUN (Blood Urea Nitrogen), S 26(H) 8 - 24 mg/dL 09/29/2023 6:20 AM MANAGER VIDEO DTL Creatinine 0.73(L) 0.74 - 1.35 mg/dL 09/29/2023 6:20 AM MANAGER VIDEO DTL Estimated GFR (eGFR) >90 >=60 mL/min/BSA 09/29/2023 6:20 AM MANAGER VIDEO DTL Comment: Estimated GFR calculated using the 2020 CKD_EPI creatinine equation. Calcium, Total, S 8.3(L) 8.8 - 10.2 mg/dL 09/29/2023 6:20 AM MANAGER VIDEO DTL Glucose, S 113 70 - 140 mg/dL 09/29/2023 6:20 AM MANAGER VIDEO DTL Blood (Blood, Venous) 09/29/2023 5:30 AM MANAGER VIDEO 09/29/2023 5:56 AM MANAGER VIDEO Sarah Reardon M.D. LAB BLOOD ADD-ON [facility] [address] [place] [address], [facility] [address] [place] [address] * Phosphorus Inorganic (09/29/2023 5:30 AM MANAGER VIDEO) Phosphorus (Inorganic), S 3.1 2.5 - 4.5 mg/dL 09/29/2023 6:20 AM MANAGER VIDEO DTL Blood (Blood, Venous) 09/29/2023 5:30 AM MANAGER VIDEO 09/29/2023 5:56 AM MANAGER VIDEO Renee Mancilla M.D. LAB BLOOD ADD-ON Performing Organization Address City/[facility]/ZIP Co de Phone Number [facility] [address] [place] [address], [facility] [address] [place] [address] * Magnesium (09/29/2023 5:30 AM MANAGER VIDEO) Magnesium, S 1.9 1.7 - 2.3 mg/dL 09/29/2023 6:20 AM MANAGER VIDEO DTL Blood (Blood, Venous) 09/29/2023 5:30 AM MANAGER VIDEO 09/29/2023 5:56 AM MANAGER VIDEO Renee Mancilla M.D. LAB BLOOD ADD-ON [facility] [address] [place] [address], [facility] [address] [place] [address] * Glucose, POCT (09/28/2023 9:19 PM MANAGER VIDEO) Glucose, POCT, B 138 70 - 140 mg/dL 09/28/2023 9:37 PM MANAGER VIDEO PCDE Site Capillary 09/28/2023 9:37 PM MANAGER VIDEO PCDE Last Intake 3-4 hours 09/28/2023 9:37 PM MANAGER VIDEO PCDE Blood 09/28/2023 9:19 PM MANAGER VIDEO 09/28/2023 9:37 PM MANAGER VIDEO Unknown Provider LAB POCT ORDERABLES- MANUAL Performing Organization Address [facility] Co de Phone Number POC [facility] [address] [place] [address], [facility] PCDE [facility] POC [address] [place] [address] * (ABNORMAL) Glucose, POCT (09/28/2023 5:13 PM MANAGER VIDEO) Glucose, POCT, B 176(H) 70 - 140 mg/dL 09/28/2023 5:16 PM MANAGER VIDEO PCDE Site Capillary 09/28/2023 5:16 PM MANAGER VIDEO PCDE Last Intake 2-3 hours 09/28/2023 5:16 PM MANAGER VIDEO PCDE Blood 09/28/2023 5:13 PM MANAGER VIDEO 09/28/2023 5:16 PM MANAGER VIDEO Unknown Provider LAB POCT ORDERABLES- MANUAL Performing Organization Address City/[facility] Co de Phone Number POC [facility] [address] [place] [address], [facility] PCDE [facility] POC [address] [place] [address] * (ABNORMAL) Glucose, POCT (09/28/2023 12:46 PM MANAGER VIDEO) Glucose, POCT, B 151(H) 70 - 140 mg/dL 09/28/2023 3:26 PM MANAGER VIDEO PCDE Site Capillary 09/28/2023 3:26 PM MANAGER VIDEO PCDE Last Intake ContTubFdg 09/28/2023 3:26 PM MANAGER VIDEO PCDE Blood 09/28/2023 12:4 6 PM MANAGER VIDEO 09/28/2023 3:26 PM MANAGER VIDEO Unknown Provider LAB POCT ORDERABLES- MANUAL Performing Organization Address City/[facility] Co de Phone Number POC [facility] [address] [place] [address], [facility] PCDE [facility] POC [address] [place] [address] * (ABNORMAL) Glucose, POCT (09/28/2023 12:19 PM MANAGER VIDEO) Glucose, POCT, B 184(H) 70 - 140 mg/dL 09/28/2023 12:22 PM MANAGER VIDEO PCDE Site Capillary 09/28/2023 12:22 PM MANAGER VIDEO PCDE Last Intake ContTubFdg 09/28/2023 12:22 PM MANAGER VIDEO PCDE Blood 09/28/2023 12:1 9 PM MANAGER VIDEO 09/28/2023 12:22 PM MANAGER VIDEO Unknown Provider LAB POCT ORDERABLES- MANUAL Performing Organization Address City/[facility] Co de Phone Number [facility]OC [facility] [address] [place] [address], [facility] PCDE [facility] POC [address] [place] [address] * Glucose, POCT (09/28/2023 8:56 AM MANAGER VIDEO) Glucose, POCT, B 139 70 - 140 mg/dL 09/28/2023 8:59 AM MANAGER VIDEO PCDE Site Capillary 09/28/2023 8:59 AM MANAGER VIDEO PCDE Last Intake <1 hour 09/28/2023 8:59 AM MANAGER VIDEO PCDE Blood 09/28/2023 8:56 AM MANAGER VIDEO 09/28/2023 8:59 AM MANAGER VIDEO Unknown Provider LAB POCT ORDERABLES- MANUAL Performing Organization Address City/[facility] Co de Phone Number [facility]OC [facility] [address] [place] [address], [facility] PCDE [facility] POC [address] [place] [address] * Phosphorus Inorganic (09/28/2023 5:51 AM MANAGER VIDEO) Phosphorus (Inorganic), S 3.8 2.5 - 4.5 mg/dL 09/28/2023 6:52 AM MANAGER VIDEO DTL Blood (Blood, Venous) 09/28/2023 5:51 AM MANAGER VIDEO 09/28/2023 6:36 AM MANAGER VIDEO Renee Mancilla M.D. LAB BLOOD ADD-ON Performing Organization Address City/[facility]/ZIP Co de Phone Number [facility] [address] [place] [address], [facility] [address] [place] [address] * (ABNORMAL) Magnesium (09/28/2023 5:51 AM MANAGER VIDEO) Pathologist [facility] Magnesium, S 1.6(L) 1.7 - 2.3 mg/dL 09/28/2023 6:52 AM MANAGER VIDEO DTL Blood (Blood, Venous) 09/28/2023 5:51 AM MANAGER VIDEO 09/28/2023 6:36 AM MANAGER VIDEO Renee Mancilla M.D. LAB BLOOD ADD-ON Performing Organization Address [facility] Co de Phone Number [facility] [address] [place] [address], [facility] [address] [place] [address] * (ABNORMAL) CBC no call back, reflex T/S HGB <8 (09/28/2023 5:51 AM MANAGER VIDEO) Pathologist [facility] Hemoglobin 8.6(L) 13.2 - 16.6 g/dL 09/28/2023 6:29 AM MANAGER VIDEO DTL Hematocrit 25.8(L) 38.3 - 48.6 % 09/28/2023 6:29 AM MANAGER VIDEO DTL Erythrocytes 2.82(L) 4.35 - 5.65 x10(12)/L 09/28/2023 6:29 AM MANAGER VIDEO DTL MCV 91.5 78.2 - 97.9 fL 09/28/2023 6:29 AM MANAGER VIDEO DTL RBC Distrib Width 16.8(H) 11.8 - 14.5 % 09/28/2023 6:29 AM MANAGER VIDEO DTL Platelet Count 210 135 - 317 x10(9)/L 09/28/2023 6:29 AM MANAGER VIDEO DTL Leukocytes 9.9(H) 3.4 - 9.6 x10(9)/L 09/28/2023 6:29 AM MANAGER VIDEO DTL Neutrophils 8.69(H) 1.56 - 6.45 x10(9)/L 09/28/2023 6:29 AM MANAGER VIDEO PM Lymphocytes 0.36(L) 0.95 - 3.07 x10(9)/L 09/28/2023 6:29 AM MANAGER VIDEO DTL Monocytes 0.41 0.26 - 0.81 x10(9)/L 09/28/2023 6:29 AM MANAGER VIDEO DTL Eosinophils 0.38 0.03 - 0.48 x10(9)/L 09/28/2023 6:29 AM MANAGER VIDEO DTL Basophils <0.03 0.01 - 0.08 x10(9)/L 09/28/2023 6:29 AM MANAGER VIDEO DTL Blood (Blood, Venous) 09/28/2023 5:51 AM MANAGER VIDEO 09/28/2023 6:21 AM MANAGER VIDEO Renee Mancilla M.D. LAB BLOOD NON ADD-ON [facility] [address] [place] [address], [facility] DTL [facility] [address] [place], [place] [id number] [place] [address] [place] [address] * (ABNORMAL) Basic Metabolic Panel (09/28/2023 5:51 AM MANAGER VIDEO) Potassium, S 5.3(H) 3.6 - 5.2 mmol/L 09/28/2023 6:52 AM MANAGER VIDEO DTL Sodium, S 134(L) 135 - 145 mmol/L 09/28/2023 6:52 AM MANAGER VIDEO DTL Chloride, S 99 98 - 107 mmol/L 09/28/2023 6:52 AM MANAGER VIDEO DTL Bicarbonate, S 27 22 - 29 mmol/L 09/28/2023 6:52 AM MANAGER VIDEO DTL Anion Gap 8 7 - 15 09/28/2023 6:52 AM MANAGER VIDEO DTL BUN (Blood Urea Nitrogen), S 31(H) 8 - 24 mg/dL 09/28/2023 6:52 AM MANAGER VIDEO DTL Creatinine 0.80 0.74 - 1.35 mg/dL 09/28/2023 6:52 AM MANAGER VIDEO DTL Estimated GFR (eGFR) >90 >=60 mL/min/BSA 09/28/2023 6:52 AM MANAGER VIDEO DTL Comment: Estimated GFR calculated using the 2020 CKD_EPI creatinine equation. Calcium, Total, S 8.0(L) 8.8 - 10.2 mg/dL 09/28/2023 6:52 AM MANAGER VIDEO DTL Glucose, S 99 70 - 140 mg/dL 09/28/2023 6:52 AM MANAGER VIDEO DTL Blood (Blood, Venous) 09/28/2023 5:51 AM MANAGER VIDEO 09/28/2023 6:36 AM MANAGER VIDEO Sarah Reardon M.D. LAB BLOOD ADD-ON Performing Organization Address City/[facility]/ZIP Co de Phone Number [facility] [address] DTL [facility] [address] [place] [address] * (ABNORMAL) Glucose, POCT (09/27/2023 9:36 PM MANAGER VIDEO) Glucose, POCT, B 192(H) 70 - 140 mg/dL 09/27/2023 9:47 PM MANAGER VIDEO PCDE Blood 09/27/2023 9:36 PM MANAGER VIDEO 09/27/2023 9:47 PM MANAGER VIDEO Unknown Provider LAB POCT ORDERABLES- MANUAL POC [facility] [address] [place] [address], [facility] PCDE [facility] [address] [place] [address] * Potassium, Plasma (09/27/2023 8:06 PM MANAGER VIDEO) Potassium, P 5.0 3.6 - 5.2 mmol/L 09/27/2023 8:37 PM MANAGER VIDEO DTL Blood (Blood, Venous) 09/27/2023 8:06 PM MANAGER VIDEO 09/27/2023 8:28 PM MANAGER VIDEO Luis Antonio Jacinto M.D. LAB BLOOD ADD-ON [facility] [address] [place] [address], [facility] [address] [place] [address] * (ABNORMAL) Glucose, POCT (09/27/2023 5:24 PM MANAGER VIDEO) Glucose, POCT, B 192(H) 70 - 140 mg/dL 09/27/2023 5:31 PM MANAGER VIDEO PCDE Last Intake 2-3 hours 09/27/2023 5:31 PM MANAGER VIDEO PCDE Blood 09/27/2023 5:24 PM MANAGER VIDEO 09/27/2023 5:31 PM MANAGER VIDEO Unknown Provider LAB POCT ORDERABLES- MANUAL Performing Organization Address [facility] Co de Phone Number [facility] [address] [place] [address], [facility] PCDE [facility] POC [address] [place] [address] * (ABNORMAL) Potassium (09/27/2023 1:55 PM MANAGER VIDEO) Potassium, S 5.4(H) 3.6 - 5.2 mmol/L 09/27/2023 3:09 PM MANAGER VIDEO DTL Blood (Blood, Venous) 09/27/2023 1:55 PM MANAGER VIDEO 09/27/2023 2:54 PM MANAGER VIDEO Renee Mancilla M.D. LAB BLOOD ADD-ON Performing Organization Address City/[facility]/ZIP Co de Phone Number [facility] [address] [place] [address], [facility] DTL [facility] [address] [place] [address] * Glucose, POCT (09/27/2023 1:01 PM MANAGER VIDEO) Glucose, POCT, B 110 70 - 140 mg/dL 09/27/2023 1:59 PM MANAGER VIDEO PCDE Blood 09/27/2023 1:01 PM MANAGER VIDEO 09/27/2023 1:59 PM MANAGER VIDEO Unknown Provider LAB POCT ORDERABLES- MANUAL Performing Organization Address [facility] Co de Phone Number [facility] [address] [place] [address], [facility] PCDE [facility] POC [address] [place] [address] * [place] Fluoro Less Than 1 Hour (09/27/2023 12:48 PM MANAGER VIDEO) Narrative ERCP LOS RST - 09/27/2023 12:49 PM MANAGER VIDEO This exam does not require a radiologist review or interpretation. Please refer to the patient's medical record on this date for clinical details. Alessandro Gonzáles M.D. IMG FLUOROSCOPY PROC EDURES Performing Organization Address [facility] Co de Phone Number ERCP LOS RST * Upper GI Endoscopy (09/27/2023 11:22 AM MANAGER VIDEO) 09/27/2023 11:2 2 AM MANAGER VIDEO Impressions [facility] - 09/27/2023 1:04 PM MANAGER VIDEO Post-op Diagnoses: ? - Z-line regular, 40 cm from the incisors. ? - Normal stomach. ? 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 ? - An externally removable 20Fr PEG with a 10Fr Jejunal extension was ? successfully placed . ? - No specimens collected. Narrative [facility] - 09/27/2023 1:04 PM MANAGER VIDEO Gonda 2 GI Patient Name: Hola Lau [...] Note Initiated On: 09/27/2023 11:22 AM Alessandro Gonzáles M.D. GI PROCEDURE [facility] * Glucose, POCT (09/27/2023 11:22 AM MANAGER VIDEO) Glucose, POCT, B 105 70 - 140 mg/dL 09/27/2023 1:58 PM MANAGER VIDEO PCDE Blood 09/27/2023 11:2 2 AM MANAGER VIDEO 09/27/2023 1:58 PM MANAGER VIDEO Unknown Provider LAB POCT ORDERABLES- MANUAL Performing Organization Address City/[facility] Co de Phone Number [facility] [address] [place] [address], [facility] PCDE [facility] POC [address] [place] [address] * ECG 12 Lead (09/27/2023 9:26 AM MANAGER VIDEO) Ventricular Rate ECG/Min [address] Interval 160 ms MUSE QRSD Interval 90 ms MUSE QT Interval 390 ms MUSE QTC Interval 417 ms MUSE P [place] 25 degrees MUSE R [place] 40 degrees MUSE T Wave [place] 30 degrees MUSE 09/27/2023 9:26 AM MANAGER VIDEO 09/27/2023 9:31 AM MANAGER VIDEO Impressions [facility] - 09/27/2023 9:31 AM MANAGER VIDEO Normal sinus rhythm Nonspecific ST abnormality When compared with ECG of 26-SEP-2023 07:29, No significant change was found Reviewed by ISAURO Guevara Narrative Procedure Note Hola Gifford M.D., Ph.D. - 09/27/2023 IMPRESSION: Normal sinus rhythm Nonspecific ST abnormality When compared with ECG of 26-SEP-2023 07:29, No significant change was found Reviewed by ISAURO Guevara Renee Mancilla M.D. ECG ORDERABLES MUSE NA * Glucose, POCT (09/27/2023 8:08 AM MANAGER VIDEO) Glucose, POCT, B 132 70 - 140 mg/dL 09/27/2023 8:24 AM MANAGER VIDEO PCDE Site Capillary 09/27/2023 8:24 AM MANAGER VIDEO PCDE Last Intake > 4 hours 09/27/2023 8:24 AM MANAGER VIDEO PCDE Blood 09/27/2023 8:08 AM MANAGER VIDEO 09/27/2023 8:24 AM MANAGER VIDEO Unknown Provider LAB POCT ORDERABLES- MANUAL Performing Organization Address City/[facility] Co de Phone Number [facility] [address] [place] [address], [facility] PCDE [facility] [address] [place] [address] * Prothrombin Time (PT) (09/27/2023 5:53 AM MANAGER VIDEO) Pathologist [facility] Prothrombin Time, P 11.8 9.4 - 12.5 sec 09/27/2023 6:52 AM MANAGER VIDEO DTL INR 1.1 0.9 - 1.1 09/27/2023 6:52 AM MANAGER VIDEO DTL Comment: ----ADDITIONAL INFORMATION---- Standard intensity warfarin therapeutic range: 2.0 to 3.0 ?? High intensity warfarin therapeutic range: 2.5 to 3.5 Blood (Blood, Venous) 09/27/2023 5:53 AM MANAGER VIDEO 09/27/2023 6:31 AM MANAGER VIDEO Alessandro Gonzáles M.D. LAB BLOOD ADD-ON Performing Organization Address City/[facility]/ZIP Co de Phone Number [facility] [address] [place] [address], [facility] DTL [facility] [address] [place] [address] * (ABNORMAL) Basic Metabolic Panel (09/27/2023 5:53 AM MANAGER VIDEO) Pathologist [facility] Potassium, S 5.6(H) 3.6 - 5.2 mmol/L 09/27/2023 7:05 AM MANAGER VIDEO DTL Sodium, S 135 135 - 145 mmol/L 09/27/2023 7:05 AM MANAGER VIDEO DTL Chloride, S 99 98 - 107 mmol/L 09/27/2023 7:05 AM MANAGER VIDEO DTL Bicarbonate, S 28 22 - 29 mmol/L 09/27/2023 7:05 AM MANAGER VIDEO DTL Anion Gap 8 7 - 15 09/27/2023 7:05 AM MANAGER VIDEO DTL BUN (Blood Urea Nitrogen), S 34(H) 8 - 24 mg/dL 09/27/2023 7:05 AM MANAGER VIDEO DTL Creatinine 0.76 0.74 - 1.35 mg/dL 09/27/2023 7:05 AM MANAGER VIDEO DTL Estimated GFR (eGFR) >90 >=60 mL/min/BSA 09/27/2023 7:05 AM MANAGER VIDEO DTL Comment: Estimated GFR calculated using the 2020 CKD_EPI creatinine equation. Calcium, Total, S 8.6(L) 8.8 - 10.2 mg/dL 09/27/2023 7:05 AM MANAGER VIDEO DTL Glucose, S 116 70 - 140 mg/dL 09/27/2023 7:05 AM MANAGER VIDEO DTL Blood (Blood, Venous) 09/27/2023 5:53 AM MANAGER VIDEO 09/27/2023 6:47 AM MANAGER VIDEO Sarah Reardon M.D. LAB BLOOD ADD-ON [facility] [address] [place] [address], [facility] [address] [place] [address] * (ABNORMAL) CBC with Differential, Blood (09/27/2023 5:53 AM MANAGER VIDEO) Hemoglobin 8.9(L) 13.2 - 16.6 g/dL 09/27/2023 6:46 AM MANAGER VIDEO DTL Hematocrit 27.7(L) 38.3 - 48.6 % 09/27/2023 6:46 AM MANAGER VIDEO DTL Erythrocytes 2.99(L) 4.35 - 5.65 x10(12)/L 09/27/2023 6:46 AM MANAGER VIDEO DTL MCV 92.6 78.2 - 97.9 fL 09/27/2023 6:46 AM MANAGER VIDEO DTL RBC Distrib Width 16.7(H) 11.8 - 14.5 % 09/27/2023 6:46 AM MANAGER VIDEO DTL Platelet Count 235 135 - 317 x10(9)/L 09/27/2023 6:46 AM MANAGER VIDEO DTL Leukocytes 7.6 3.4 - 9.6 x10(9)/L 09/27/2023 6:46 AM MANAGER VIDEO DTL Neutrophils 6.24 1.56 - 6.45 x10(9)/L 09/27/2023 6:46 AM MANAGER VIDEO [facility] Lymphocytes 0.44(L) 0.95 - 3.07 x10(9)/L 09/27/2023 6:46 AM MANAGER VIDEO DTL Monocytes 0.53 0.26 - 0.81 x10(9)/L 09/27/2023 6:46 AM MANAGER VIDEO DTL Eosinophils 0.33 0.03 - 0.48 x10(9)/L 09/27/2023 6:46 AM MANAGER VIDEO DTL Basophils <0.03 0.01 - 0.08 x10(9)/L 09/27/2023 6:46 AM MANAGER VIDEO DTL Blood (Blood, Venous) 09/27/2023 5:53 AM MANAGER VIDEO 09/27/2023 6:31 AM MANAGER VIDEO Sarah Reardon M.D. LAB BLOOD ADD-ON [facility] [address] [place] [address], [facility] DTL [facility] [address] [place], [place] [id number] [place] [address] [place] [address] * (ABNORMAL) Phosphorus Inorganic (09/27/2023 5:48 AM MANAGER VIDEO) [facility] Phosphorus (Inorganic), S 4.8(H) 2.5 - 4.5 mg/dL 09/27/2023 2:23 PM MANAGER VIDEO DTL Blood 09/27/2023 5:48 AM MANAGER VIDEO 09/27/2023 1:57 PM MANAGER VIDEO Renee Mancilla M.D. LAB BLOOD ADD-ON [facility] [address] [place], [place] [id number] [place] [address] [address] [place] [address] * Magnesium (09/27/2023 5:48 AM MANAGER VIDEO) Pathologist [facility] Magnesium, S 1.7 1.7 - 2.3 mg/dL 09/27/2023 2:23 PM MANAGER VIDEO DTL Blood (Blood, Venous) 09/27/2023 5:48 AM MANAGER VIDEO 09/27/2023 1:57 PM MANAGER VIDEO Renee Mancilla M.D. LAB BLOOD ADD-ON Performing Organization Address [facility]/ZIP Co de Phone Number [facility] [address] [place], [place] [address] [address] [place] [address] * (ABNORMAL) Uric Acid (09/27/2023 5:48 AM MANAGER VIDEO) [facility] Uric Acid, S 3.1(L) 3.7 - 8.0 mg/dL 09/27/2023 8:02 AM MANAGER VIDEO DT Blood (Blood, Venous) 09/27/2023 5:48 AM MANAGER VIDEO 09/27/2023 7:31 AM MANAGER VIDEO Melva Mckeon M.D. LAB BLOOD ADD-ON Performing Organization Address City/[facility]/ZIP Co de Phone Number [facility] [address] [place], [place] [phone] [place] [address] [address] [place] [address] * (ABNORMAL) Glucose, POCT (09/26/2023 8:19 PM MANAGER VIDEO) [facility] Glucose, POCT, B 231(H) 70 - 140 mg/dL 09/26/2023 8:26 PM MANAGER VIDEO PCDE Site Capillary 09/26/2023 8:26 PM MANAGER VIDEO PCDE Last Intake ContTubFdg 09/26/2023 8:26 PM MANAGER VIDEO PCDE Blood 09/26/2023 8:19 PM MANAGER VIDEO 09/26/2023 8:26 PM MANAGER VIDEO Unknown Provider LAB POCT ORDERABLES- MANUAL Performing Organization Address [facility] de Phone Number [facility] [address] [place], [place] [address] PCDE [facility] POC [address] [place] [address] * (ABNORMAL) Glucose, POCT (09/26/2023 5:57 PM MANAGER VIDEO) Glucose, POCT, B 174(H) 70 - 140 mg/dL 09/26/2023 6:02 PM MANAGER VIDEO PCDE Site Capillary 09/26/2023 6:02 PM MANAGER VIDEO PCDE Last Intake ContTubFdg 09/26/2023 6:02 PM MANAGER VIDEO PCDE Blood 09/26/2023 5:57 PM MANAGER VIDEO 09/26/2023 6:02 PM MANAGER VIDEO Unknown Provider LAB POCT ORDERABLES- MANUAL Performing Organization Address [facility] de Phone Number [facility] [address] [place] [address], [facility] PCDE [facility] POC [address] [place] [address] * (ABNORMAL) Glucose, POCT (09/26/2023 3:28 PM MANAGER VIDEO) Glucose, POCT, B 216(H) 70 - 140 mg/dL 09/26/2023 3:32 PM MANAGER VIDEO PCDE Site Capillary 09/26/2023 3:32 PM MANAGER VIDEO PCDE Last Intake ContTubFdg 09/26/2023 3:32 PM MANAGER VIDEO PCDE Blood 09/26/2023 3:28 PM MANAGER VIDEO 09/26/2023 3:32 PM MANAGER VIDEO Unknown Provider LAB POCT ORDERABLES- MANUAL Performing Organization Address [facility] Co de Phone Number POC [facility] [address] [place] [address], [facility] PCDE [facility] POC [address] [place] [address] * (ABNORMAL) Potassium (09/26/2023 2:52 PM MANAGER VIDEO) Pathologist [facility] Potassium, S 5.7(H) 3.6 - 5.2 mmol/L 09/26/2023 4:00 PM MANAGER VIDEO DTL Blood (Blood, Venous) 09/26/2023 2:52 PM MANAGER VIDEO 09/26/2023 3:26 PM MANAGER VIDEO Sarah Reardon M.D. LAB BLOOD ADD-ON Performing Organization Address City/[facility] Co de Phone Number [facility] [address] [place] [address], [facility] DTL [facility] [address] [place] [address] * (ABNORMAL) Glucose, POCT (09/26/2023 12:01 PM MANAGER VIDEO) Pathologist [facility] Glucose, POCT, B 169(H) 70 - 140 mg/dL 09/26/2023 12:15 PM MANAGER VIDEO PCDE Site Capillary 09/26/2023 12:15 PM MANAGER VIDEO PCDE Blood 09/26/2023 12:0 1 PM MANAGER VIDEO 09/26/2023 12:16 PM MANAGER VIDEO Unknown Provider LAB POCT ORDERABLES- MANUAL Performing Organization Address City/[facility] Co de Phone Number [facility] [address] [place] [address], [facility] PCDE [facility] POC [address] [place] [address] * ECG 12 Lead (09/26/2023 7:29 AM MANAGER VIDEO) Ventricular Rate ECG/Min [address] Interval 168 ms MUSE QRSD Interval 90 ms MUSE QT Interval 370 ms MUSE QTC Interval 413 ms MUSE P [place] 36 degrees MUSE R [place] 39 degrees MUSE T Wave [place] 42 degrees MUSE 09/26/2023 7:29 AM MANAGER VIDEO 09/26/2023 7:32 AM MANAGER VIDEO Impressions MUSE - 09/26/2023 7:32 AM MANAGER VIDEO Normal sinus rhythm Nonspecific ST abnormality When compared with ECG of 14-SEP-2023 19:57, No significant change was found Reviewed by ISAURO Omalley Narrative Procedure Note Jose Nix M.D. - 09/26/2023 IMPRESSION: Normal sinus rhythm Nonspecific ST abnormality When compared with ECG of 14-SEP-2023 19:57, No significant change was found Reviewed by ISAURO Omalley Sarah Reardon M.D. ECG ORDERABLES MUSE NA * (ABNORMAL) Basic Metabolic Panel (09/26/2023 5:50 AM MANAGER VIDEO) Potassium, S 6.0(CH) 3.6 - 5.2 mmol/L 09/26/2023 7:08 AM MANAGER VIDEO DTL Sodium, S 136 135 - 145 mmol/L 09/26/2023 7:08 AM MANAGER VIDEO DTL Chloride, S 98 98 - 107 mmol/L 09/26/2023 7:08 AM MANAGER VIDEO DTL Bicarbonate, S 28 22 - 29 mmol/L 09/26/2023 7:08 AM MANAGER VIDEO DTL Anion Gap 10 7 - 15 09/26/2023 7:08 AM MANAGER VIDEO DTL BUN (Blood Urea Nitrogen), S 33(H) 8 - 24 mg/dL 09/26/2023 7:08 AM MANAGER VIDEO DTL Creatinine 0.67(L) 0.74 - 1.35 mg/dL 09/26/2023 7:08 AM MANAGER VIDEO DTL Estimated GFR (eGFR) >90 >=60 mL/min/BSA 09/26/2023 7:08 AM MANAGER VIDEO DTL Comment: Estimated GFR calculated using the 2020 CKD_EPI creatinine equation. Calcium, Total, S 8.5(L) 8.8 - 10.2 mg/dL 09/26/2023 7:08 AM MANAGER VIDEO DTL Glucose, S 102 70 - 140 mg/dL 09/26/2023 7:08 AM MANAGER VIDEO DTL Blood (Blood, Venous) 09/26/2023 5:50 AM MANAGER VIDEO 09/26/2023 6:26 AM MANAGER VIDEO Sarah Reardon M.D. LAB BLOOD ADD-ON [facility] [address] [place] [address], [facility] DTL [facility] [address] [place] [address] * (ABNORMAL) CBC with Differential, Blood (09/26/2023 5:50 AM MANAGER VIDEO) Hemoglobin 9.4(L) 13.2 - 16.6 g/dL 09/26/2023 6:20 AM MANAGER VIDEO DTL Hematocrit 29.2(L) 38.3 - 48.6 % 09/26/2023 6:20 AM MANAGER VIDEO DTL Erythrocytes 3.17(L) 4.35 - 5.65 x10(12)/L 09/26/2023 6:20 AM MANAGER VIDEO DTL MCV 92.1 78.2 - 97.9 fL 09/26/2023 6:20 AM MANAGER VIDEO DTL RBC Distrib Width 16.2(H) 11.8 - 14.5 % 09/26/2023 6:20 AM MANAGER VIDEO DTL Platelet Count 240 135 - 317 x10(9)/L 09/26/2023 6:20 AM MANAGER VIDEO DTL Leukocytes 7.6 3.4 - 9.6 x10(9)/L 09/26/2023 6:20 AM MANAGER VIDEO DTL Neutrophils 6.52(H) 1.56 - 6.45 x10(9)/L 09/26/2023 6:20 AM MANAGER VIDEO DHPM Lymphocytes 0.39(L) 0.95 - 3.07 x10(9)/L 09/26/2023 6:20 AM MANAGER VIDEO DTL Monocytes 0.48 0.26 - 0.81 x10(9)/L 09/26/2023 6:20 AM MANAGER VIDEO DTL Eosinophils 0.22 0.03 - 0.48 x10(9)/L 09/26/2023 6:20 AM MANAGER VIDEO DTL Basophils <0.03 0.01 - 0.08 x10(9)/L 09/26/2023 6:20 AM MANAGER VIDEO DTL Blood (Blood, Venous) 09/26/2023 5:50 AM MANAGER VIDEO 09/26/2023 6:10 AM MANAGER VIDEO Sarah Reardon M.D. LAB BLOOD ADD-ON [facility] [address] [place] [address], [facility] DTL [facility] [address] [place] [address] DHPM [facility] [address] [place] [address] * (ABNORMAL) Glucose, POCT (09/25/2023 8:06 PM MANAGER VIDEO) Glucose, POCT, B 148(H) 70 - 140 mg/dL 09/25/2023 8:11 PM MANAGER VIDEO PCDE Site Capillary 09/25/2023 8:11 PM MANAGER VIDEO PCDE Last Intake 1-2 hours 09/25/2023 8:11 PM MANAGER VIDEO PCDE Blood 09/25/2023 8:06 PM MANAGER VIDEO 09/25/2023 8:11 PM MANAGER VIDEO Unknown Provider LAB POCT ORDERABLES- MANUAL POC [facility] [address] [place] [address], [facility] PCDE [facility] POC [address] [place] [address] * Glucose, POCT (09/25/2023 5:32 PM MANAGER VIDEO) Glucose, POCT, B 104 70 - 140 mg/dL 09/25/2023 5:35 PM MANAGER VIDEO PCDE Site Capillary 09/25/2023 5:35 PM MANAGER VIDEO PCDE Last Intake 1-2 hours 09/25/2023 5:35 PM MANAGER VIDEO PCDE Blood 09/25/2023 5:32 PM MANAGER VIDEO 09/25/2023 5:36 PM MANAGER VIDEO Unknown Provider LAB POCT ORDERABLES- MANUAL [facility] [address] [place] [address], [facility] PCDE [facility] POC [address] [place] [address] * (ABNORMAL) Glucose, POCT (09/25/2023 11:12 AM MANAGER VIDEO) Glucose, POCT, B 193(H) 70 - 140 mg/dL 09/25/2023 11:32 AM MANAGER VIDEO PCDE Site Capillary 09/25/2023 11:32 AM MANAGER VIDEO PCDE Last Intake <1 hour 09/25/2023 11:32 AM MANAGER VIDEO PCDE Blood 09/25/2023 11:1 2 AM MANAGER VIDEO 09/25/2023 11:32 AM MANAGER VIDEO Unknown Provider LAB POCT ORDERABLES- MANUAL Performing Organization Address City/[facility]/ZIP Co de Phone Number [facility] [address] [place] [address], [facility] PCDE [facility] POC [address] [place] [address] * Glucose, POCT (09/25/2023 7:47 AM MANAGER VIDEO) Glucose, POCT, B 112 70 - 140 mg/dL 09/25/2023 7:51 AM MANAGER VIDEO PCDE Site Capillary 09/25/2023 7:51 AM MANAGER VIDEO PCDE Last Intake > 4 hours 09/25/2023 7:51 AM MANAGER VIDEO PCDE Blood 09/25/2023 7:47 AM MANAGER VIDEO 09/25/2023 7:51 AM MANAGER VIDEO Unknown Provider LAB POCT ORDERABLES- MANUAL Performing Organization Address City/[facility]/ZIP Co de Phone Number [facility] [address] [place] [address], [facility] PCDE [facility] POC [address] [place] [address] * (ABNORMAL) Basic Metabolic Panel (09/25/2023 7:41 AM MANAGER VIDEO) Potassium, S 5.6(H) 3.6 - 5.2 mmol/L 09/25/2023 8:53 AM MANAGER VIDEO DTL Sodium, S 134(L) 135 - 145 mmol/L 09/25/2023 8:53 AM MANAGER VIDEO DTL Chloride, S 97(L) 98 - 107 mmol/L 09/25/2023 8:53 AM MANAGER VIDEO DTL Bicarbonate, S 29 22 - 29 mmol/L 09/25/2023 8:53 AM MANAGER VIDEO DTL Anion Gap 8 7 - 15 09/25/2023 8:53 AM MANAGER VIDEO DTL BUN (Blood Urea Nitrogen), S 34(H) 8 - 24 mg/dL 09/25/2023 8:53 AM MANAGER VIDEO DTL Creatinine 0.68(L) 0.74 - 1.35 mg/dL 09/25/2023 8:53 AM MANAGER VIDEO DTL Estimated GFR (eGFR) >90 >=60 mL/min/BSA 09/25/2023 8:53 AM MANAGER VIDEO DTL Comment: Estimated GFR calculated using the 2020 CKD_EPI creatinine equation. Calcium, Total, S 8.7(L) 8.8 - 10.2 mg/dL 09/25/2023 8:53 AM MANAGER VIDEO DTL Glucose, S 104 70 - 140 mg/dL 09/25/2023 8:53 AM MANAGER VIDEO DTL Blood (Blood, Venous) 09/25/2023 7:41 AM MANAGER VIDEO 09/25/2023 8:24 AM MANAGER VIDEO Sarah Reardon M.D. LAB BLOOD ADD-ON [address] [address], [facility] [address] [place] [address] * (ABNORMAL) CBC with Differential, Blood (09/25/2023 7:41 AM MANAGER VIDEO) Hemoglobin 9.9(L) 13.2 - 16.6 g/dL 09/25/2023 8:22 AM MANAGER VIDEO DTL Hematocrit 30.3(L) 38.3 - 48.6 % 09/25/2023 8:22 AM MANAGER VIDEO DTL Erythrocytes 3.25(L) 4.35 - 5.65 x10(12)/L 09/25/2023 8:22 AM MANAGER VIDEO DTL MCV 93.2 78.2 - 97.9 fL 09/25/2023 8:22 AM MANAGER VIDEO DTL RBC Distrib Width 16.5(H) 11.8 - 14.5 % 09/25/2023 8:22 AM MANAGER VIDEO DTL Platelet Count 269 135 - 317 x10(9)/L 09/25/2023 8:22 AM MANAGER VIDEO DTL Leukocytes 7.5 3.4 - 9.6 x10(9)/L 09/25/2023 8:22 AM MANAGER VIDEO DTL Neutrophils 6.40 1.56 - 6.45 x10(9)/L 09/25/2023 8:22 AM MANAGER VIDEO DHPM Lymphocytes 0.40(L) 0.95 - 3.07 x10(9)/L 09/25/2023 8:22 AM MANAGER VIDEO DTL Monocytes 0.56 0.26 - 0.81 x10(9)/L 09/25/2023 8:22 AM MANAGER VIDEO DTL Eosinophils 0.14 0.03 - 0.48 x10(9)/L 09/25/2023 8:22 AM MANAGER VIDEO DTL Basophils <0.03 0.01 - 0.08 x10(9)/L 09/25/2023 8:22 AM MANAGER VIDEO DTL Blood (Blood, Venous) 09/25/2023 7:41 AM MANAGER VIDEO 09/25/2023 8:10 AM MANAGER VIDEO Sarah Reardon M.D. LAB BLOOD ADD-ON [facility] [address] [place] [address], [facility] DTL [facility] [address] [place] [address] DHPM [facility] [address] [place] [address] * (ABNORMAL) Glucose, POCT (09/24/2023 9:04 PM MANAGER VIDEO) [facility] Signature Glucose, POCT, B 201(H) 70 - 140 mg/dL 09/24/2023 9:09 PM MANAGER VIDEO PCDE Site Capillary 09/24/2023 9:09 PM MANAGER VIDEO PCDE Last Intake 2-3 hours 09/24/2023 9:09 PM MANAGER VIDEO PCDE Blood 09/24/2023 9:04 PM MANAGER VIDEO 09/24/2023 9:09 PM MANAGER VIDEO Unknown Provider LAB POCT ORDERABLES- MANUAL Performing Organization Address City/[facility]/ZIP Co de Phone Number [facility] [address] [place] [address], [facility] PCDE [facility] POC [address] [place] [address] * (ABNORMAL) Glucose, POCT (09/24/2023 4:51 PM MANAGER VIDEO) Glucose, POCT, B 198(H) 70 - 140 mg/dL 09/24/2023 4:53 PM MANAGER VIDEO PCDE Site Capillary 09/24/2023 4:53 PM MANAGER VIDEO PCDE Last Intake 2-3 hours 09/24/2023 4:53 PM MANAGER VIDEO PCDE Blood 09/24/2023 4:51 PM MANAGER VIDEO 09/24/2023 4:53 PM MANAGER VIDEO Unknown Provider LAB POCT ORDERABLES- MANUAL Performing Organization Address [facility]/ZIP Co de Phone Number [facility] [address] [place] [address], [facility] PCDE [facility] POC [address] [place] [address] * (ABNORMAL) Glucose, POCT (09/24/2023 11:28 AM MANAGER VIDEO) Glucose, POCT, B 215(H) 70 - 140 mg/dL 09/24/2023 11:32 AM MANAGER VIDEO PCDE Blood 09/24/2023 11:2 8 AM MANAGER VIDEO 09/24/2023 11:32 AM MANAGER VIDEO Unknown Provider LAB POCT ORDERABLES- MANUAL Performing Organization Address City/[facility]/ZIP Co de Phone Number [facility] [address] [place] [address], [facility] PCDE [facility] POC [address] [place] [address] * Glucose, POCT (09/24/2023 7:24 AM MANAGER VIDEO) Glucose, POCT, B 131 70 - 140 mg/dL 09/24/2023 7:35 AM MANAGER VIDEO PCDE Site Capillary 09/24/2023 7:35 AM MANAGER VIDEO PCDE Blood 09/24/2023 7:24 AM MANAGER VIDEO 09/24/2023 7:35 AM MANAGER VIDEO Unknown Provider LAB POCT ORDERABLES- MANUAL [facility] [address] [place] [address], [facility] PCDE [facility] POC [address] [place] [address] * (ABNORMAL) Basic Metabolic Panel (09/24/2023 5:18 AM MANAGER VIDEO) Potassium, S 5.3(H) 3.6 - 5.2 mmol/L 09/24/2023 6:32 AM MANAGER VIDEO DTL Sodium, S 137 135 - 145 mmol/L 09/24/2023 6:32 AM MANAGER VIDEO DTL Chloride, S 98 98 - 107 mmol/L 09/24/2023 6:32 AM MANAGER VIDEO DTL Bicarbonate, S 29 22 - 29 mmol/L 09/24/2023 6:32 AM MANAGER VIDEO DTL Anion Gap 10 7 - 15 09/24/2023 6:32 AM MANAGER VIDEO DTL BUN (Blood Urea Nitrogen), S 33(H) 8 - 24 mg/dL 09/24/2023 6:32 AM MANAGER VIDEO DTL Creatinine 0.67(L) 0.74 - 1.35 mg/dL 09/24/2023 6:32 AM MANAGER VIDEO DTL Estimated GFR (eGFR) >90 >=60 mL/min/BSA 09/24/2023 6:32 AM MANAGER VIDEO DTL Comment: Estimated GFR calculated using the 2020 CKD_EPI creatinine equation. Calcium, Total, S 8.7(L) 8.8 - 10.2 mg/dL 09/24/2023 6:32 AM MANAGER VIDEO DTL Glucose, S 141(H) 70 - 140 mg/dL 09/24/2023 6:32 AM MANAGER VIDEO DTL Blood (Blood, Venous) 09/24/2023 5:18 AM MANAGER VIDEO 09/24/2023 6:14 AM MANAGER VIDEO Clare Cuevas M.D. LAB BLOOD ADD-ON [facility] [address] [place] [address], [facility] DTL [facility] [address] [place] [address] * (ABNORMAL) CBC no call back, reflex T/S HGB <8 (09/24/2023 5:18 AM MANAGER VIDEO) Pathologist [facility] Hemoglobin 10.0(L) 13.2 - 16.6 g/dL 09/24/2023 6:11 AM MANAGER VIDEO DTL Hematocrit 30.9(L) 38.3 - 48.6 % 09/24/2023 6:11 AM MANAGER VIDEO DTL Erythrocytes 3.34(L) 4.35 - 5.65 x10(12)/L 09/24/2023 6:11 AM MANAGER VIDEO DTL MCV 92.5 78.2 - 97.9 fL 09/24/2023 6:11 AM MANAGER VIDEO DTL RBC Distrib Width 16.3(H) 11.8 - 14.5 % 09/24/2023 6:11 AM MANAGER VIDEO DTL Platelet Count 261 135 - 317 x10(9)/L 09/24/2023 6:11 AM MANAGER VIDEO DTL Leukocytes 5.1 3.4 - 9.6 x10(9)/L 09/24/2023 6:11 AM MANAGER VIDEO DTL Neutrophils 4.26 1.56 - 6.45 x10(9)/L 09/24/2023 6:11 AM MANAGER VIDEO DHPM Lymphocytes 0.37(L) 0.95 - 3.07 x10(9)/L 09/24/2023 6:11 AM MANAGER VIDEO DTL Monocytes 0.44 0.26 - 0.81 x10(9)/L 09/24/2023 6:11 AM MANAGER VIDEO DTL Eosinophils <0.03 0.03 - 0.48 x10(9)/L 09/24/2023 6:11 AM MANAGER VIDEO DTL Basophils <0.03 0.01 - 0.08 x10(9)/L 09/24/2023 6:11 AM MANAGER VIDEO DTL Blood (Blood, Venous) 09/24/2023 5:18 AM MANAGER VIDEO 09/24/2023 6:03 AM MANAGER VIDEO Melva Rodas M.D. LAB BLOOD NON AD D-ON [facility] [address] [place] [address], [place] DTL [facility] [address] [place] [address] [facility] [address] [place] [address] * (ABNORMAL) Glucose, POCT (09/23/2023 8:04 PM MANAGER VIDEO) Glucose, POCT, B 171(H) 70 - 140 mg/dL 09/23/2023 8:11 PM MANAGER VIDEO PCDE Site Capillary 09/23/2023 8:11 PM MANAGER VIDEO PCDE Last Intake ContTubFdg 09/23/2023 8:11 PM MANAGER VIDEO PCDE Blood 09/23/2023 8:04 PM MANAGER VIDEO 09/23/2023 8:11 PM MANAGER VIDEO Unknown Provider LAB POCT ORDERABLES- MANUAL POC [facility] [address] [place] [address], [facility] PCDE [facility] POC [address] [place] [address] * (ABNORMAL) Glucose, POCT (09/23/2023 5:26 PM MANAGER VIDEO) Glucose, POCT, B 210(H) 70 - 140 mg/dL 09/23/2023 5:29 PM MANAGER VIDEO PCDE Site Capillary 09/23/2023 5:29 PM MANAGER VIDEO PCDE Last Intake ContTubFdg 09/23/2023 5:29 PM MANAGER VIDEO PCDE Blood 09/23/2023 5:26 PM MANAGER VIDEO 09/23/2023 5:29 PM MANAGER VIDEO Unknown Provider LAB POCT ORDERABLES- MANUAL POC [facility] [address] [place] [address], [facility] PCDE [facility] POC [address] [place] [address] * (ABNORMAL) Glucose, POCT (09/23/2023 1:12 PM MANAGER VIDEO) Glucose, POCT, B 287(H) 70 - 140 mg/dL 09/23/2023 1:15 PM MANAGER VIDEO PCDE Site Capillary 09/23/2023 1:15 PM MANAGER VIDEO PCDE Last Intake ContTubFdg 09/23/2023 1:15 PM MANAGER VIDEO PCDE Blood 09/23/2023 1:12 PM MANAGER VIDEO 09/23/2023 1:16 PM MANAGER VIDEO Unknown Provider LAB POCT ORDERABLES- MANUAL POC [facility] [address] [place] [address], [facility] PCDE [facility] POC [address] [place] [address] * DX Abdomen Portable Anterior Posterior 1 View (09/23/2023 12:25 PM MANAGER VIDEO) Anatomical Region Laterality Modality Abdomen, Abdominal RST LOS, Abdominal ARZ LOS, Abdominal FLA LOS N/A Digital Radiography Impressions 09/23/2023 12:30 PM MANAGER VIDEO NJ tube with tip likely in the expected location of the proximal jejunum. Narrative 09/23/2023 12:30 PM MANAGER VIDEO EXAM: ??DX ABDOMEN PORTABLE ANTERIOR POSTERIOR 1 VIEW Procedure Note Dereje Sepulveda D.O. - 09/23/2023 EXAM: DX ABDOMEN PORTABLE ANTERIOR POSTERIOR 1 VIEW IMPRESSION: NJ tube with tip likely in the expected location of the proximaljejunum. Melva LOPEZ DIAGNOSTIC I MAGING PROCEDURES * (ABNORMAL) Glucose, POCT (09/23/2023 7:33 AM MANAGER VIDEO) Glucose, POCT, B 192(H) 70 - 140 mg/dL 09/23/2023 7:39 AM MANAGER VIDEO PCDE Blood 09/23/2023 7:33 AM MANAGER VIDEO 09/23/2023 7:39 AM MANAGER VIDEO Unknown Provider LAB POCT ORDERABLES- MANUAL POC [facility] [address] [place] [address], [facility] PCDE [facility] [address] [place] [address] * (ABNORMAL) Basic Metabolic Panel (09/23/2023 5:55 AM MANAGER VIDEO) Potassium, S 4.5 3.6 - 5.2 mmol/L 09/23/2023 6:44 AM MANAGER VIDEO DTL Sodium, S 137 135 - 145 mmol/L 09/23/2023 6:44 AM MANAGER VIDEO DTL Chloride, S 98 98 - 107 mmol/L 09/23/2023 6:44 AM MANAGER VIDEO DTL Bicarbonate, S 29 22 - 29 mmol/L 09/23/2023 6:44 AM MANAGER VIDEO DTL Anion Gap 10 7 - 15 09/23/2023 6:44 AM MANAGER VIDEO DTL BUN (Blood Urea Nitrogen), S 30(H) 8 - 24 mg/dL 09/23/2023 6:44 AM MANAGER VIDEO DTL Creatinine 0.70(L) 0.74 - 1.35 mg/dL 09/23/2023 6:44 AM MANAGER VIDEO DTL Estimated GFR (eGFR) >90 >=60 mL/min/BSA 09/23/2023 6:44 AM MANAGER VIDEO DTL Comment: Estimated GFR calculated using the 2020 CKD_EPI creatinine equation. Calcium, Total, S 8.6(L) 8.8 - 10.2 mg/dL 09/23/2023 6:44 AM MANAGER VIDEO DTL Glucose, S 161(H) 70 - 140 mg/dL 09/23/2023 6:44 AM MANAGER VIDEO DTL Blood (Blood, Venous) 09/23/2023 5:55 AM MANAGER VIDEO 09/23/2023 6:28 AM MANAGER VIDEO Clare Cuevas M.D. LAB BLOOD ADD-ON [facility] [address] [place] [address], [facility] DTL [facility] [address] [place] [address] * (ABNORMAL) CBC no call back, reflex T/S HGB <8 (09/23/2023 5:55 AM MANAGER VIDEO) Hemoglobin 9.4(L) 13.2 - 16.6 g/dL 09/23/2023 6:23 AM MANAGER VIDEO DTL Hematocrit 28.2(L) 38.3 - 48.6 % 09/23/2023 6:23 AM MANAGER VIDEO DTL Erythrocytes 3.11(L) 4.35 - 5.65 x10(12)/L 09/23/2023 6:23 AM MANAGER VIDEO DTL MCV 90.7 78.2 - 97.9 fL 09/23/2023 6:23 AM MANAGER VIDEO DTL RBC Distrib Width 16.0(H) 11.8 - 14.5 % 09/23/2023 6:23 AM MANAGER VIDEO DTL Platelet Count 179 135 - 317 x10(9)/L 09/23/2023 6:23 AM MANAGER VIDEO DTL Leukocytes 3.3(L) 3.4 - 9.6 x10(9)/L 09/23/2023 6:23 AM MANAGER VIDEO DTL Neutrophils 2.75 1.56 - 6.45 x10(9)/L 09/23/2023 6:23 AM MANAGER VIDEO DHPM Lymphocytes 0.23(L) 0.95 - 3.07 x10(9)/L 09/23/2023 6:23 AM MANAGER VIDEO DTL Monocytes 0.30 0.26 - 0.81 x10(9)/L 09/23/2023 6:23 AM MANAGER VIDEO DTL Eosinophils <0.03 0.03 - 0.48 x10(9)/L 09/23/2023 6:23 AM MANAGER VIDEO DTL Basophils <0.03 0.01 - 0.08 x10(9)/L 09/23/2023 6:23 AM MANAGER VIDEO DTL Blood (Blood, Venous) 09/23/2023 5:55 AM MANAGER VIDEO 09/23/2023 6:14 AM MANAGER VIDEO Melva Rodas M.D. LAB BLOOD NON AD [facility] C[facility] [address] [place] [address], [place] DTL [facility] [address] [place] [address] [facility] [address] [place] [address] * (ABNORMAL) Glucose, POCT (09/22/2023 10:19 PM MANAGER VIDEO) Glucose, POCT, B 208(H) 70 - 140 mg/dL 09/22/2023 10:26 PM MANAGER VIDEO PCDE Site Capillary 09/22/2023 10:26 PM MANAGER VIDEO PCDE Last Intake ContTubFdg 09/22/2023 10:26 PM MANAGER VIDEO PCDE Blood 09/22/2023 10:1 9 PM MANAGER VIDEO 09/22/2023 10:26 PM MANAGER VIDEO Unknown Provider LAB POCT ORDERABLES- MANUAL Performing Organization Address City/[facility]/ZIP Co de Phone Number POC [facility] [address] [place] [address], [facility] PCDE [facility] POC [address] [place] [address] * (ABNORMAL) Glucose, POCT (09/22/2023 5:40 PM MANAGER VIDEO) Glucose, POCT, B 205(H) 70 - 140 mg/dL 09/22/2023 5:42 PM MANAGER VIDEO PCDE Site Capillary 09/22/2023 5:42 PM MANAGER VIDEO PCDE Last Intake 3-4 hours 09/22/2023 5:42 PM MANAGER VIDEO PCDE Blood 09/22/2023 5:40 PM MANAGER VIDEO 09/22/2023 5:43 PM MANAGER VIDEO Unknown Provider LAB POCT ORDERABLES- MANUAL POC [facility] [address] [place] [address], [facility] PCDE [facility] POC [address] [place] [address] * (ABNORMAL) Glucose, POCT (09/22/2023 12:54 PM MANAGER VIDEO) Glucose, POCT, B 256(H) 70 - 140 mg/dL 09/22/2023 1:03 PM MANAGER VIDEO PCDE Site Capillary 09/22/2023 1:03 PM MANAGER VIDEO PCDE Last Intake 3-4 hours 09/22/2023 1:03 PM MANAGER VIDEO PCDE Blood 09/22/2023 12:5 4 PM MANAGER VIDEO 09/22/2023 1:03 PM MANAGER VIDEO Unknown Provider LAB POCT ORDERABLES- MANUAL Performing Organization Address City/[facility]/ZIP Co de Phone Number POC [facility] [address] [place] [address], [facility] PCDE [facility] POC [address] [place] [address] * (ABNORMAL) Glucose, POCT (09/22/2023 11:14 AM MANAGER VIDEO) Glucose, POCT, B 296(H) 70 - 140 mg/dL 09/22/2023 11:16 AM MANAGER VIDEO PCDE Site Capillary 09/22/2023 11:16 AM MANAGER VIDEO PCDE Blood 09/22/2023 11:1 4 AM MANAGER VIDEO 09/22/2023 11:16 AM MANAGER VIDEO Unknown Provider LAB POCT ORDERABLES- MANUAL Performing Organization Address City/[facility]/ZIP Co de Phone Number POC [facility] [address] [place] [address], [facility] PCDE [facility] POC [address] [place] [address] * (ABNORMAL) Glucose, POCT (09/22/2023 7:55 AM MANAGER VIDEO) Glucose, POCT, B 184(H) 70 - 140 mg/dL 09/22/2023 8:07 AM MANAGER VIDEO PCDE Site Capillary 09/22/2023 8:07 AM MANAGER VIDEO PCDE Last Intake 3-4 hours 09/22/2023 8:07 AM MANAGER VIDEO PCDE Blood 09/22/2023 7:55 AM MANAGER VIDEO 09/22/2023 8:08 AM MANAGER VIDEO Unknown Provider LAB POCT ORDERABLES- MANUAL Performing Organization Address City/[facility]/ZIP Co de Phone Number POC [facility] [address] [place] [address], [facility] PCDE [facility] POC [address] [place] [address] * (ABNORMAL) Basic Metabolic Panel (09/22/2023 7:05 AM MANAGER VIDEO) Potassium, S 4.5 3.6 - 5.2 mmol/L 09/22/2023 8:35 AM MANAGER VIDEO DTL Sodium, S 138 135 - 145 mmol/L 09/22/2023 8:35 AM MANAGER VIDEO DTL Chloride, S 98 98 - 107 mmol/L 09/22/2023 8:35 AM MANAGER VIDEO DTL Bicarbonate, S 27 22 - 29 mmol/L 09/22/2023 8:35 AM MANAGER VIDEO DTL Anion Gap 13 7 - 15 09/22/2023 8:35 AM MANAGER VIDEO DTL BUN (Blood Urea Nitrogen), S 29(H) 8 - 24 mg/dL 09/22/2023 8:35 AM MANAGER VIDEO DTL Creatinine 0.74 0.74 - 1.35 mg/dL 09/22/2023 8:35 AM MANAGER VIDEO DTL Estimated GFR (eGFR) >90 >=60 mL/min/BSA 09/22/2023 8:35 AM MANAGER VIDEO DTL Comment: Estimated GFR calculated using the 2020 CKD_EPI creatinine equation. Calcium, Total, S 8.4(L) 8.8 - 10.2 mg/dL 09/22/2023 8:35 AM MANAGER VIDEO DTL Glucose, S 197(H) 70 - 140 mg/dL 09/22/2023 8:35 AM MANAGER VIDEO DTL Blood (Blood, Venous) 09/22/2023 7:05 AM MANAGER VIDEO 09/22/2023 8:13 AM MANAGER VIDEO Clare Cuevas M.D. LAB BLOOD ADD-ON [facility] [address] [place] [address], [place] [facility] [address] [place] [address] * (ABNORMAL) Hepatic Function Panel (09/22/2023 7:05 AM MANAGER VIDEO) Bilirubin, Total, S <0.2 0.0 - 1.2 mg/dL 09/22/2023 8:35 AM MANAGER VIDEO DTL Bilirubin, Direct, S <0.2 0.0 - 0.3 mg/dL 09/22/2023 8:35 AM MANAGER VIDEO DTL Aspartate Aminotransferase (AST), S 32 8 - 48 U/L 09/22/2023 8:35 AM MANAGER VIDEO DTL Alanine Aminotransferase (ALT), S 24 7 - 55 U/L 09/22/2023 8:35 AM MANAGER VIDEO DTL Alkaline Phosphatase, S 241(H) 40 - 129 U/L 09/22/2023 8:35 AM MANAGER VIDEO DTL Albumin, S 2.8(L) 3.5 - 5.0 g/dL 09/22/2023 8:35 AM MANAGER VIDEO DTL Protein, Total, S 4.6(L) 6.3 - 7.9 g/dL 09/22/2023 8:35 AM MANAGER VIDEO DTL Blood (Blood, Venous) 09/22/2023 7:05 AM MANAGER VIDEO 09/22/2023 8:13 AM MANAGER VIDEO Melva Rodas M.D. LAB BLOOD ADD-ON [facility] [address] [place] [address], [facility] [address] [place] [address] * (ABNORMAL) CBC no call back, reflex T/S HGB <8 (09/22/2023 7:05 AM MANAGER VIDEO) Hemoglobin 8.9(L) 13.2 - 16.6 g/dL 09/22/2023 7:55 AM MANAGER VIDEO DTL Hematocrit 27.8(L) 38.3 - 48.6 % 09/22/2023 7:55 AM MANAGER VIDEO DTL Erythrocytes 2.99(L) 4.35 - 5.65 x10(12)/L 09/22/2023 7:55 AM MANAGER VIDEO DTL MCV 93.0 78.2 - 97.9 fL 09/22/2023 7:55 AM MANAGER VIDEO DTL RBC Distrib Width 15.9(H) 11.8 - 14.5 % 09/22/2023 7:55 AM MANAGER VIDEO DTL Platelet Count 183 135 - 317 x10(9)/L 09/22/2023 7:55 AM MANAGER VIDEO DTL Leukocytes 2.0(L) 3.4 - 9.6 x10(9)/L 09/22/2023 7:55 AM MANAGER VIDEO DTL Neutrophils 1.68 1.56 - 6.45 x10(9)/L 09/22/2023 7:55 AM MANAGER VIDEO DHPM Lymphocytes 0.16(L) 0.95 - 3.07 x10(9)/L 09/22/2023 7:55 AM MANAGER VIDEO DTL Monocytes 0.17(L) 0.26 - 0.81 x10(9)/L 09/22/2023 7:55 AM MANAGER VIDEO DTL Eosinophils <0.03 0.03 - 0.48 x10(9)/L 09/22/2023 7:55 AM MANAGER VIDEO DTL Basophils <0.03 0.01 - 0.08 x10(9)/L 09/22/2023 7:55 AM MANAGER VIDEO DTL Blood (Blood, Venous) 09/22/2023 7:05 AM MANAGER VIDEO 09/22/2023 7:44 AM MANAGER VIDEO Melva Rodas M.D. LAB BLOOD NON AD D-ON Performing Organization Address City/[facility]/ZIP Co de Phone Number [facility] [address] [place] [address], [facility] DTL [facility] [address] [place] [address] DHPM [facility] [address] [place] [address] * (ABNORMAL) Glucose, POCT (09/21/2023 8:45 PM MANAGER VIDEO) [facility] Glucose, POCT, B 252(H) 70 - 140 mg/dL 09/21/2023 9:14 PM MANAGER VIDEO PCDE Blood 09/21/2023 8:45 PM MANAGER VIDEO 09/21/2023 9:14 PM MANAGER VIDEO Unknown Provider LAB POCT ORDERABLES- MANUAL Performing Organization Address City/[facility]/ZIP Co de Phone Number POC [facility] [address] [place] [address], [facility] PCDE [facility] POC [address] [place] [address] * (ABNORMAL) Glucose, POCT (09/21/2023 5:40 PM MANAGER VIDEO) Glucose, POCT, B 245(H) 70 - 140 mg/dL 09/21/2023 5:42 PM MANAGER VIDEO PCDE Site Capillary 09/21/2023 5:42 PM MANAGER VIDEO PCDE Last Intake ContTubFdg 09/21/2023 5:42 PM MANAGER VIDEO PCDE Blood 09/21/2023 5:40 PM MANAGER VIDEO 09/21/2023 5:42 PM MANAGER VIDEO Unknown Provider LAB POCT ORDERABLES- MANUAL Performing Organization Address City/[facility] Co de Phone Number POC [facility] [address] [place] [address], [facility] PCDE [facility] POC [address] [place] [address] * (ABNORMAL) Glucose, POCT (09/21/2023 1:18 PM MANAGER VIDEO) Glucose, POCT, B 290(H) 70 - 140 mg/dL 09/21/2023 1:22 PM MANAGER VIDEO PCDE Site Capillary 09/21/2023 1:22 PM MANAGER VIDEO PCDE Last Intake ContTubFdg 09/21/2023 1:22 PM MANAGER VIDEO PCDE Blood 09/21/2023 1:18 PM MANAGER VIDEO 09/21/2023 1:23 PM MANAGER VIDEO Unknown Provider LAB POCT ORDERABLES- MANUAL [facility]OC [facility] [address] [place] [address], [facility] PCDE [facility] POC [address] [place] [address] * (ABNORMAL) Glucose, POCT (09/21/2023 8:35 AM MANAGER VIDEO) Glucose, POCT, B 293(H) 70 - 140 mg/dL 09/21/2023 8:40 AM MANAGER VIDEO PCDE Blood 09/21/2023 8:35 AM MANAGER VIDEO 09/21/2023 8:41 AM MANAGER VIDEO Unknown Provider LAB POCT ORDERABLES- MANUAL Performing Organization Address City/[facility]/ZIP Co de Phone Number POC [facility] [address] [place] [address], [facility] PCDE [facility] [address] [place] [address] * (ABNORMAL) Basic Metabolic Panel (09/21/2023 6:43 AM MANAGER VIDEO) Potassium, S 4.5 3.6 - 5.2 mmol/L 09/21/2023 7:41 AM MANAGER VIDEO DTL Sodium, S 135 135 - 145 mmol/L 09/21/2023 7:41 AM MANAGER VIDEO DTL Chloride, S 95(L) 98 - 107 mmol/L 09/21/2023 7:41 AM MANAGER VIDEO DTL Bicarbonate, S 30(H) 22 - 29 mmol/L 09/21/2023 7:41 AM MANAGER VIDEO DTL Anion Gap 10 7 - 15 09/21/2023 7:41 AM MANAGER VIDEO DTL BUN (Blood Urea Nitrogen), S 25(H) 8 - 24 mg/dL 09/21/2023 7:41 AM MANAGER VIDEO DTL Creatinine 0.79 0.74 - 1.35 mg/dL 09/21/2023 7:41 AM MANAGER VIDEO DTL Estimated GFR (eGFR) >90 >=60 mL/min/BSA 09/21/2023 7:41 AM MANAGER VIDEO DTL Comment: Estimated GFR calculated using the 2020 CKD_EPI creatinine equation. Calcium, Total, S 8.3(L) 8.8 - 10.2 mg/dL 09/21/2023 7:41 AM MANAGER VIDEO DTL Glucose, S 291(H) 70 - 140 mg/dL 09/21/2023 7:41 AM MANAGER VIDEO DTL Blood (Blood, Venous) 09/21/2023 6:43 AM MANAGER VIDEO 09/21/2023 7:26 AM MANAGER VIDEO Clare Cuevas M.D. LAB BLOOD ADD-ON [facility] [address] [place] [address], [facility] DTL [facility] [address] [place] [address] * (ABNORMAL) CBC no call back, reflex T/S HGB <8 (09/21/2023 6:43 AM MANAGER VIDEO) Hemoglobin 9.3(L) 13.2 - 16.6 g/dL 09/21/2023 7:16 AM MANAGER VIDEO DTL Hematocrit 28.4(L) 38.3 - 48.6 % 09/21/2023 7:16 AM MANAGER VIDEO DTL Erythrocytes 3.08(L) 4.35 - 5.65 x10(12)/L 09/21/2023 7:16 AM MANAGER VIDEO DTL MCV 92.2 78.2 - 97.9 fL 09/21/2023 7:16 AM MANAGER VIDEO DTL RBC Distrib Width 16.6(H) 11.8 - 14.5 % 09/21/2023 7:16 AM MANAGER VIDEO DTL Platelet Count 170 135 - 317 x10(9)/L 09/21/2023 7:16 AM MANAGER VIDEO DTL Leukocytes 1.2(L) 3.4 - 9.6 x10(9)/L 09/21/2023 7:16 AM MANAGER VIDEO DTL Neutrophils 0.85(L) 1.56 - 6.45 x10(9)/L 09/21/2023 8:10 AM MANAGER VIDEO [facility] Comment:Rechecked Lymphocytes 0.15(L) 0.95 - 3.07 x10(9)/L 09/21/2023 8:10 AM MANAGER VIDEO DTL Monocytes 0.15(L) 0.26 - 0.81 x10(9)/L 09/21/2023 8:10 AM MANAGER VIDEO DTL Eosinophils <0.03 0.03 - 0.48 x10(9)/L 09/21/2023 8:10 AM MANAGER VIDEO DTL Basophils <0.03 0.01 - 0.08 x10(9)/L 09/21/2023 8:10 AM MANAGER VIDEO DTL Blood (Blood, Venous) 09/21/2023 6:43 AM MANAGER VIDEO 09/21/2023 7:10 AM MANAGER VIDEO Melva Rodas M.D. LAB BLOOD NON AD D-ON [facility] [address] [place], [place] [address] [address] [place] [address] [facility] [address] [place] [address] * Magnesium (09/21/2023 6:43 AM MANAGER VIDEO) [facility] Magnesium, S 1.8 1.7 - 2.3 mg/dL 09/21/2023 7:41 AM MANAGER VIDEO DTL Blood (Blood, Venous) 09/21/2023 6:43 AM MANAGER VIDEO 09/21/2023 7:26 AM MANAGER VIDEO Abilio Goodson M.D. LAB BLOOD ADD-ON [facility] [address] [place], [place] [address] [address] [place] [address] * Phosphorus Inorganic (09/21/2023 6:43 AM MANAGER VIDEO) [facility] Phosphorus (Inorganic), S 3.2 2.5 - 4.5 mg/dL 09/21/2023 7:41 AM MANAGER VIDEO DT Blood (Blood, Venous) 09/21/2023 6:43 AM MANAGER VIDEO 09/21/2023 7:26 AM MANAGER VIDEO Abilio Goodson M.D. LAB BLOOD ADD-ON [facility] [address] [place], [place] [address] [address] [place] [address] * (ABNORMAL) Glucose, POCT (09/20/2023 10:04 PM MANAGER VIDEO) [facility] Glucose, POCT, B 259(H) 70 - 140 mg/dL 09/20/2023 10:07 PM MANAGER VIDEO PCDE Site Capillary 09/20/2023 10:07 PM MANAGER VIDEO PCDE Last Intake ContTubFdg 09/20/2023 10:07 PM MANAGER VIDEO PCDE Blood 09/20/2023 10:0 4 PM MANAGER VIDEO 09/20/2023 10:07 PM MANAGER VIDEO Unknown Provider LAB POCT ORDERABLES- MANUAL Performing Organization Address City/[facility]/ZIP Co de Phone Number POC [facility] [address] [place] [address], [facility] PCDE [facility] POC [address] [place] [address] * (ABNORMAL) Glucose, POCT (09/20/2023 8:49 PM MANAGER VIDEO) [facility] Signature Glucose, POCT, B 271(H) 70 - 140 mg/dL 09/20/2023 8:52 PM MANAGER VIDEO PCDE Site Capillary 09/20/2023 8:52 PM MANAGER VIDEO PCDE Last Intake ContTubFdg 09/20/2023 8:52 PM MANAGER VIDEO PCDE Blood 09/20/2023 8:49 PM MANAGER VIDEO 09/20/2023 8:52 PM MANAGER VIDEO Unknown Provider LAB POCT ORDERABLES- MANUAL Performing Organization Address City/[facility] Co de Phone Number POC [facility] [address] [place] [address], [facility] PCDE [facility] P[facility] [address] [place] [address] * MR Brain without and with IV Contrast (09/20/2023 6:24 PM MANAGER VIDEO) Anatomical Region Laterality Modality Head, Brain, Neuroradiology RST LOS, Neuroradiology ARZ LOS, Neuroradiology FLA LOS N/A Magnetic Resonance Impressions 09/20/2023 9:16 PM MANAGER VIDEO No evidence of acute infarction or other acute intracranial findings. Narrative 09/20/2023 9:16 PM MANAGER VIDEO EXAM: MR BRAIN WITHOUT AND WITH IV [...] other acute intracranial findings. Melva Rodas M.D. IM MRI PROCEDUR ES * (ABNORMAL) Glucose, POCT (09/20/2023 1:00 PM MANAGER VIDEO) Glucose, POCT, B 142(H) 70 - 140 mg/dL 09/20/2023 1:05 PM MANAGER VIDEO PCDE Blood 09/20/2023 1:00 PM MANAGER VIDEO 09/20/2023 1:05 PM MANAGER VIDEO Unknown Provider LAB POCT ORDERABLES- MANUAL [facility] [address] [place] [address], [facility] PCDE [facility] POC [address] [place] [address] * CT ARTHCS ASP/INJ MJR JT WO US (09/20/2023 12:37 PM MANAGER VIDEO) Narrative Hola Romero M.D. - 09/20/2023 12:37 PM MANAGER VIDEO Jad Hanks M.D. ? 09/20/2023 12:42 PM [...] / Anaerobe + Susc (09/20/2023 12:34 PM MANAGER VIDEO) Bacteria Cult, Aerobe/Anaerob e+Susc No growth after 14 days of incubation. 10/04/2023 4:02 PM MANAGER VIDEO DT Synovial Fluid, Right Knee 09/20/2023 12:34 PM MANAGER VIDEO 09/20/2023 3:31 PM MANAGER VIDEO Comment:Specimen Source Site : Fluid Jad Hanks M.D. LAB MICROBIOLOGY - GENERAL ORDERABLES Performing Organization Address City/[facility]/ZIP Co de Phone Number [facility] [address] [facility] [address] [place] [address] * Gram Stain (09/20/2023 12:34 PM MANAGER VIDEO) Gram Stain No organisms seen. White blood cells, Many 09/20/2023 8:14 PM MANAGER VIDEO DT Fluid (Synovial Fluid, Right Knee) 09/20/2023 12:34 PM MANAGER VIDEO 09/20/2023 3:31 PM MANAGER VIDEO Comment:Specimen Source Site : Fluid Jad Hanks M.D. LAB MICROBIOLOGY - GENERAL ORDERABLES [facility] [address] [place] [address], [facility] [address] [place] [address] * Crystal Identification, Body Fluid (09/20/2023 12:34 PM MANAGER VIDEO) Fluid Type Synovial Fluid, Right Knee 09/20/2023 2:13 PM MANAGER VIDEO DHPM Crystal ID None seen None seen 09/20/2023 2:13 PM MANAGER VIDEO DHPM Fluid (Synovial Fluid, Right Knee) 09/20/2023 12:34 PM MANAGER VIDEO 09/20/2023 1:00 PM MANAGER VIDEO Jad Hanks M.D. LAB BODY FLUIDS AND STOOLS ORDERABLES Performing Organization Address [facility] Co de Phone Number [facility] [address] [place], [place] [address] [address] [place] [address] * Cell Count and Differential, Body Fluid (09/20/2023 12:34 PM MANAGER VIDEO) Fluid Type Right knee synovial 09/20/2023 2:13 PM MANAGER VIDEO DHPM Gross Appearance Serous 09/20/19 24 2:13 PM MANAGER VIDEO DHPM Total Nucleated Cells 4188 /mcL 09/20/2023 2:13 PM MANAGER VIDEO DHPM Comment: ----REFERENCE VALUE---- Synovial: <150 /mcL Peritoneal: <500 /mcL Pleural: <500 /mcL Pericardial: <500 /mcL ----ADDITIONAL INFORMATION---- This test has been modified from the information technology consultant's instructions. Its performance characteristics were determined by [facility] in a manner consistent with CLIA requirements. This test has not been cleared or approved by the U.S. Food and Drug Administration. Neutrophils 87 % 09/20/2023 2:13 PM MANAGER VIDEO DHPM Comment: ----REFERENCE VALUE---- Synovial: <25% Peritoneal: <25% Pleural: <25% Pericardial: <25% Monocytes/Macropha ges 13 Synovial <70% % 09/20/2023 2:13 PM MANAGER VIDEO DHPM Comment See Comment 09/20/2023 2:13 PM MANAGER VIDEO DHPM Reviewed by: Kaylen 09/20/2023 2:13 PM MANAGER VIDEO DHPM Fluid (Synovial Fluid, Right Knee) 09/20/2023 12:34 PM MANAGER VIDEO 09/20/2023 1:00 PM MANAGER VIDEO Jad Hanks M.D. LAB BODY FLUIDS AND STOOLS ORDERABLES Performing Organization Address City/[facility]/ZIP Co de Phone Number [facility] [address] [place] [address], [facility] [address] [place] [address] * (ABNORMAL) Glucose, POCT (09/20/2023 7:47 AM MANAGER VIDEO) Pathologist [facility] Glucose, POCT, B 142(H) 70 - 140 mg/dL 09/20/2023 8:05 AM MANAGER VIDEO PCDE Site Capillary 09/20/2023 8:05 AM MANAGER VIDEO PCDE Last Intake 2-3 hours 09/20/2023 8:05 AM MANAGER VIDEO PCDE Blood 09/20/2023 7:47 AM MANAGER VIDEO 09/20/2023 8:05 AM MANAGER VIDEO Unknown Provider LAB POCT ORDERABLES- MANUAL POC [facility] [address] [place] [address], [facility] PCDE [facility] [address] [place] [address] * (ABNORMAL) CRP (C-Reactive Protein) (09/20/2023 6:18 AM MANAGER VIDEO) Pathologist [facility] C-Reactive Protein (CRP), S 95.7(H) <5.0 mg/L 09/20/2023 10:09 AM MANAGER VIDEO DTL Blood 09/20/2023 6:18 AM MANAGER VIDEO 09/20/2023 9:38 AM MANAGER VIDEO Ling Carrillo M.D. LAB BLOOD ADD-ON [facility] [address] [place] [address], [facility] [address] [place] [address] * (ABNORMAL) Uric Acid (09/20/2023 6:18 AM MANAGER VIDEO) Uric Acid, S 3.4(L) 3.7 - 8.0 mg/dL 09/20/2023 10:09 AM MANAGER VIDEO DTL Blood (Blood, Venous) 09/20/2023 6:18 AM MANAGER VIDEO 09/20/2023 9:38 AM MANAGER VIDEO Ling Carrillo M.D. LAB BLOOD ADD-ON [facility] [address] [place] [address], [facility] DTL [facility] [address] [place] [address] * (ABNORMAL) Basic Metabolic Panel (09/20/2023 6:18 AM MANAGER VIDEO) Pathologist [facility] Potassium, S 4.0 3.6 - 5.2 mmol/L 09/20/2023 9:01 AM MANAGER VIDEO DTL Sodium, S 135 135 - 145 mmol/L 09/20/2023 9:01 AM MANAGER VIDEO DTL Chloride, S 96(L) 98 - 107 mmol/L 09/20/2023 9:01 AM MANAGER VIDEO DTL Bicarbonate, S 30(H) 22 - 29 mmol/L 09/20/2023 9:01 AM MANAGER VIDEO DTL Anion Gap 9 7 - 15 09/20/2023 9:01 AM MANAGER VIDEO DTL BUN (Blood Urea Nitrogen), S 13 8 - 24 mg/dL 09/20/2023 9:01 AM MANAGER VIDEO DTL Creatinine 0.70(L) 0.74 - 1.35 mg/dL 09/20/2023 9:01 AM MANAGER VIDEO DTL Estimated GFR (eGFR) >90 >=60 mL/min/BSA 09/20/2023 9:01 AM MANAGER VIDEO DTL Comment: Estimated GFR calculated using the 2020 CKD_EPI creatinine equation. Calcium, Total, S 8.0(L) 8.8 - 10.2 mg/dL 09/20/2023 9:01 AM MANAGER VIDEO DTL Glucose, S 163(H) 70 - 140 mg/dL 09/20/2023 9:01 AM MANAGER VIDEO DTL Blood (Blood, Venous) 09/20/2023 6:18 AM MANAGER VIDEO 09/20/2023 6:42 AM MANAGER VIDEO Clare Cuevas M.D. LAB BLOOD ADD-ON [facility] [address] [place], [place] [address] DTL [facility] [address] [place] [address] * (ABNORMAL) CBC no call back, reflex T/S HGB <8 (09/20/2023 6:18 AM MANAGER VIDEO) Hemoglobin 9.5(L) 13.2 - 16.6 g/dL 09/20/2023 6:39 AM MANAGER VIDEO DTL Hematocrit 29.2(L) 38.3 - 48.6 % 09/20/2023 6:39 AM MANAGER VIDEO DTL Erythrocytes 3.13(L) 4.35 - 5.65 x10(12)/L 09/20/2023 6:39 AM MANAGER VIDEO DTL MCV 93.3 78.2 - 97.9 fL 09/20/2023 6:39 AM MANAGER VIDEO DTL RBC Distrib Width 16.8(H) 11.8 - 14.5 % 09/20/2023 6:39 AM MANAGER VIDEO DTL Platelet Count 182 135 - 317 x10(9)/L 09/20/2023 6:39 AM MANAGER VIDEO DTL Leukocytes 1.4(L) 3.4 - 9.6 x10(9)/L 09/20/2023 6:39 AM MANAGER VIDEO DTL Neutrophils 0.37(L) 1.56 - 6.45 x10(9)/L 09/20/2023 7:23 AM MANAGER VIDEO DHPM Lymphocytes 0.28(L) 0.95 - 3.07 x10(9)/L 09/20/2023 7:24 AM MANAGER VIDEO DTL Monocytes 0.51 0.26 - 0.81 x10(9)/L 09/20/2023 7:24 AM MANAGER VIDEO DTL Eosinophils 0.16 0.03 - 0.48 x10(9)/L 09/20/2023 7:24 AM MANAGER VIDEO DTL Basophils 0.03 0.01 - 0.08 x10(9)/L 09/20/2023 7:24 AM MANAGER VIDEO DTL Blood (Blood, Venous) 09/20/2023 6:18 AM MANAGER VIDEO 09/20/2023 6:31 AM MANAGER VIDEO Eugenie Sen M.D. LAB BLOOD NON ADD-ON [facility] [address] [place] [address], [facility] [address] [place], [place] [address] [place] [address] [address] [place] [address] * Magnesium (09/20/2023 6:18 AM MANAGER VIDEO) Magnesium, S 1.7 1.7 - 2.3 mg/dL 09/20/2023 9:01 AM MANAGER VIDEO DTL Blood (Blood, Venous) 09/20/2023 6:18 AM MANAGER VIDEO 09/20/2023 6:42 AM MANAGER VIDEO Abilio Goodson M.D. LAB BLOOD ADD-ON Performing Organization Address [facility] Co de Phone Number [facility] [address] [place], [place] [address] [address] [place] [address] * Phosphorus Inorganic (09/20/2023 6:18 AM MANAGER VIDEO) Phosphorus (Inorganic), S 2.8 2.5 - 4.5 mg/dL 09/20/2023 9:01 AM MANAGER VIDEO DTL Blood (Blood, Venous) 09/20/2023 6:18 AM MANAGER VIDEO 09/20/2023 6:42 AM MANAGER VIDEO Abilio Goodson M.D. LAB BLOOD ADD-ON [facility] [address], [place] [address] [address] [place] [address] * (ABNORMAL) Glucose, POCT (09/19/2023 9:00 PM MANAGER VIDEO) Glucose, POCT, B 161(H) 70 - 140 mg/dL 09/19/2023 9:03 PM MANAGER VIDEO PCDE Blood 09/19/2023 9:00 PM MANAGER VIDEO 09/19/2023 9:03 PM MANAGER VIDEO Unknown Provider LAB POCT ORDERABLES- MANUAL POC [facility] [address] [place] [address], [place] PCDE [facility] [place] [facility] [address] [place] [address] * CT Head without IV Contrast (09/19/2023 4:12 PM MANAGER VIDEO) Anatomical Region Laterality Modality Head, Neuroradiology RST LOS , Neuroradiology ARZ LOS, Neuroradiology FLA LOS N/A Computed Tomography, Compute d Tomography 09/19/2023 3:59 PM MANAGER VIDEO Impressions 09/19/2023 5:39 PM MANAGER VIDEO 1. 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 2. No acute intracranial hemorrhage. 3. No acute arterial abnormality in the head or neck. 4. Calcified atheromatous plaque at the carotid bulbs results in mild narrowing of the internal carotid artery origins, as detailed. 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 Diminutive right [...] Port-A-Cath. Findings were discussed with Dr. Sen ([id number]) at 5:26 PM on 09/19/2023. 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 Findings were discussed with Dr. Sen ([id number]) at 5:26 PM on 09/19/2023. IMPRESSION: 1. 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 2. No acute intracranial hemorrhage. 3. No acute arterial abnormality in the head or neck. 4. Calcified atheromatous plaque at the carotid bulbs results in mildnarrowing of the internal carotid artery origins, as detailed. Eugenie Sen M.D. [facility] CT PROCEDURES * CT Head Neck Angiogram with IV Contrast (09/19/2023 4:12 PM MANAGER VIDEO) Anatomical Region Laterality Modality Head and Neck, Neuroradiolog y RST LOS, Neuroradiology ARZ LOS, [facility] N[facility]A Computed Tomography, Compute d Tomography 09/19/2023 4:09 PM MANAGER VIDEO Impressions 09/19/2023 5:39 PM MANAGER VIDEO 1. 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 2. No acute intracranial hemorrhage. 3. No acute arterial abnormality in the head or neck. 4. Calcified atheromatous plaque at the carotid bulbs results in mild narrowing of the internal carotid artery origins, as detailed. 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 Diminutive right [...] Port-A-Cath. Findings were discussed with Dr. Sen ([id number]) at 5:26 PM on 09/19/2023. 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 Findings were discussed with Dr. Sen ([id number]) at 5:26 PM on 09/19/2023. IMPRESSION: 1. 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 2. No acute intracranial hemorrhage. 3. No acute arterial abnormality in the head or neck. 4. Calcified atheromatous plaque at the carotid bulbs results in mildnarrowing of the internal carotid artery origins, as detailed. Eugenie Sen M.D. IMG CT PROCEDURES * Glucose, POCT (09/19/2023 3:12 PM MANAGER VIDEO) Glucose, POCT, B 108 70 - 140 mg/dL 09/19/2023 9:42 PM MANAGER VIDEO PCDE Site Capillary 09/19/2023 9:42 PM MANAGER VIDEO PCDE Last Intake 3-4 hours 09/19/2023 9:42 PM MANAGER VIDEO PCDE Blood 09/19/2023 3:12 PM MANAGER VIDEO 09/19/2023 9:43 PM MANAGER VIDEO Unknown Provider LAB POCT ORDERABLES- MANUAL POC [facility] [address] [place] [address], [facility] PCDE [facility] POC [address] [place] [address] * (ABNORMAL) Glucose, POCT (09/19/2023 11:42 AM MANAGER VIDEO) Glucose, POCT, B 154(H) 70 - 140 mg/dL 09/19/2023 11:50 AM MANAGER VIDEO PCDE Site Capillary 09/19/2023 11:50 AM MANAGER VIDEO PCDE Last Intake ContTubFdg 09/19/2023 11:50 AM MANAGER VIDEO PCDE Blood 09/19/2023 11:4 2 AM MANAGER VIDEO 09/19/2023 11:51 AM MANAGER VIDEO Unknown Provider LAB POCT ORDERABLES- MANUAL Performing Organization Address City/[facility]/ZIP Co de Phone Number POC [facility] [address] [place] [address], [facility] PCDE [facility] POC [address] [place] [address] * Glucose, POCT (09/19/2023 9:31 AM MANAGER VIDEO) Glucose, POCT, B 132 70 - 140 mg/dL 09/19/2023 9:34 AM MANAGER VIDEO PCDE Site Capillary 09/19/2023 9:34 AM MANAGER VIDEO PCDE Last Intake ContTubFdg 09/19/2023 9:34 AM MANAGER VIDEO PCDE Blood 09/19/2023 9:31 AM MANAGER VIDEO 09/19/2023 9:35 AM MANAGER VIDEO Unknown Provider LAB POCT ORDERABLES- MANUAL Performing Organization Address City/[facility]/ZIP Co de Phone Number POC [facility] [address] [place] [address], [facility] PCDE [facility] POC [address] [place] [address] * (ABNORMAL) Glucose, POCT (09/19/2023 7:37 AM MANAGER VIDEO) Glucose, POCT, B 160(H) 70 - 140 mg/dL 09/19/2023 9:34 AM MANAGER VIDEO PCDE Site Capillary 09/19/2023 9:34 AM MANAGER VIDEO PCDE Last Intake ContTubFdg 09/19/2023 9:34 AM MANAGER VIDEO PCDE Blood 09/19/2023 7:37 AM MANAGER VIDEO 09/19/2023 9:34 AM MANAGER VIDEO Unknown Provider LAB POCT ORDERABLES- MANUAL Performing Organization Address [facility] Co de Phone Number POC [facility] [address] [place] [address], [facility] PCDE [facility] POC [address] [place] [address] * (ABNORMAL) CBC with Differential, Blood (09/19/2023 5:46 AM MANAGER VIDEO) Hemoglobin 9.6(L) 13.2 - 16.6 g/dL 09/19/2023 6:19 AM MANAGER VIDEO DTL Hematocrit 29.2(L) 38.3 - 48.6 % 09/19/2023 6:19 AM MANAGER VIDEO DTL Erythrocytes 3.19(L) 4.35 - 5.65 x10(12)/L 09/19/2023 6:19 AM MANAGER VIDEO DTL MCV 91.5 78.2 - 97.9 fL 09/19/2023 6:19 AM MANAGER VIDEO DTL RBC Distrib Width 16.6(H) 11.8 - 14.5 % 09/19/2023 6:19 AM MANAGER VIDEO DTL Platelet Count 200 135 - 317 x10(9)/L 09/19/2023 6:19 AM MANAGER VIDEO DTL Leukocytes 1.4(L) 3.4 - 9.6 x10(9)/L 09/19/2023 6:19 AM MANAGER VIDEO DTL Neutrophils 0.30(CL) 1.56 - 6.45 x10(9)/L 09/19/2023 6:53 AM MANAGER VIDEO PM Lymphocytes 0.36(L) 0.95 - 3.07 x10(9)/L 09/19/2023 6:53 AM MANAGER VIDEO DTL Monocytes 0.52 0.26 - 0.81 x10(9)/L 09/19/2023 6:53 AM MANAGER VIDEO DTL Eosinophils 0.14 0.03 - 0.48 x10(9)/L 09/19/2023 6:53 AM MANAGER VIDEO DTL Basophils 0.03 0.01 - 0.08 x10(9)/L 09/19/2023 6:53 AM MANAGER VIDEO DTL Blood (Blood, Venous) 09/19/2023 5:46 AM MANAGER VIDEO 09/19/2023 6:10 AM MANAGER VIDEO Clare Cuevas M.D. LAB BLOOD ADD-ON [facility] [address] [place] [address], [facility] DTL [facility] [address] [place] [address] [facility] [address] [place] [address] * (ABNORMAL) Basic Metabolic Panel (09/19/2023 5:46 AM MANAGER VIDEO) Potassium, S 3.6 3.6 - 5.2 mmol/L 09/19/2023 6:45 AM MANAGER VIDEO DTL Sodium, S 137 135 - 145 mmol/L 09/19/2023 6:45 AM MANAGER VIDEO DTL Chloride, S 98 98 - 107 mmol/L 09/19/2023 6:45 AM MANAGER VIDEO DTL Bicarbonate, S 31(H) 22 - 29 mmol/L 09/19/2023 6:45 AM MANAGER VIDEO DTL Anion Gap 8 7 - 15 09/19/2023 6:45 AM MANAGER VIDEO DTL BUN (Blood Urea Nitrogen), S 10 8 - 24 mg/dL 09/19/2023 6:45 AM MANAGER VIDEO DTL Creatinine 0.70(L) 0.74 - 1.35 mg/dL 09/19/2023 6:45 AM MANAGER VIDEO DTL Estimated GFR (eGFR) >90 >=60 mL/min/BSA 09/19/2023 6:45 AM MANAGER VIDEO DTL Comment: Estimated GFR calculated using the 2020 CKD_EPI creatinine equation. Calcium, Total, S 8.3(L) 8.8 - 10.2 mg/dL 09/19/2023 6:45 AM MANAGER VIDEO DTL Glucose, S 168(H) 70 - 140 mg/dL 09/19/2023 6:45 AM MANAGER VIDEO DTL Blood (Blood, Venous) 09/19/2023 5:46 AM MANAGER VIDEO 09/19/2023 6:26 AM MANAGER VIDEO Clare Cuevas M.D. LAB BLOOD ADD-ON Performing Organization Address City/[facility]/ZIP Co de Phone Number [facility] [address] DTL [facility] [address] [place] [address] * Magnesium (09/19/2023 5:46 AM MANAGER VIDEO) Magnesium, S 2.1 1.7 - 2.3 mg/dL 09/19/2023 6:45 AM MANAGER VIDEO DTL Blood (Blood, Venous) 09/19/2023 5:46 AM MANAGER VIDEO 09/19/2023 6:26 AM MANAGER VIDEO Abilio Goodson M.D. LAB BLOOD ADD-ON [facility] [address] DTL [facility] [address] [place] [address] * Phosphorus Inorganic (09/19/2023 5:46 AM MANAGER VIDEO) Phosphorus (Inorganic), S 2.9 2.5 - 4.5 mg/dL 09/19/2023 6:45 AM MANAGER VIDEO DTL Blood (Blood, Venous) 09/19/2023 5:46 AM MANAGER VIDEO 09/19/2023 6:26 AM MANAGER VIDEO Abilio Goodson M.D. LAB BLOOD ADD-ON [facility] [address] [place] [address], [facility] [address] [place] [address] * (ABNORMAL) Glucose, POCT (09/18/2023 9:21 PM MANAGER VIDEO) Glucose, POCT, B 146(H) 70 - 140 mg/dL 09/18/2023 9:23 PM MANAGER VIDEO PCDE Site Capillary 09/18/2023 9:23 PM MANAGER VIDEO PCDE Last Intake ContTubFdg 09/18/2023 9:23 PM MANAGER VIDEO PCDE Blood 09/18/2023 9:21 PM MANAGER VIDEO 09/18/2023 9:24 PM MANAGER VIDEO Unknown Provider LAB POCT ORDERABLES- MANUAL Performing Organization Address City/[facility]/ZIP Co de Phone Number POC [facility] [address] [place] [address], [facility] PCDE [facility] POC [address] [place] [address] * Glucose, POCT (09/18/2023 4:56 PM MANAGER VIDEO) Glucose, POCT, B 118 70 - 140 mg/dL 09/18/2023 5:06 PM MANAGER VIDEO PCDE Blood 09/18/2023 4:56 PM MANAGER VIDEO 09/18/2023 5:07 PM MANAGER VIDEO Unknown Provider LAB POCT ORDERABLES- MANUAL POC [facility] [address] [place] [address], [facility] PCDE [facility] POC [address] [place] [address] * (ABNORMAL) Basic Metabolic Panel (09/18/2023 3:57 PM MANAGER VIDEO) Potassium, S 3.6 3.6 - 5.2 mmol/L 09/18/2023 5:41 PM MANAGER VIDEO DTL Sodium, S 136 135 - 145 mmol/L 09/18/2023 5:41 PM MANAGER VIDEO DTL Chloride, S 97(L) 98 - 107 mmol/L 09/18/2023 5:41 PM MANAGER VIDEO DTL Bicarbonate, S 31(H) 22 - 29 mmol/L 09/18/2023 5:41 PM MANAGER VIDEO DTL Anion Gap 8 7 - 15 09/18/2023 5:41 PM MANAGER VIDEO DTL BUN (Blood Urea Nitrogen), S 8 8 - 24 mg/dL 09/18/2023 5:41 PM MANAGER VIDEO DTL Creatinine 0.69(L) 0.74 - 1.35 mg/dL 09/18/2023 5:41 PM MANAGER VIDEO DTL Estimated GFR (eGFR) >90 >=60 mL/min/BSA 09/18/2023 5:41 PM MANAGER VIDEO DTL Comment: Estimated GFR calculated using the 2020 CKD_EPI creatinine equation. Calcium, Total, S 8.1(L) 8.8 - 10.2 mg/dL 09/18/2023 5:41 PM MANAGER VIDEO DTL Glucose, S 129 70 - 140 mg/dL 09/18/2023 5:41 PM MANAGER VIDEO DTL Blood (Blood, Venous) 09/18/2023 3:57 PM MANAGER VIDEO 09/18/2023 4:38 PM MANAGER VIDEO Abilio Goodson M.D. LAB BLOOD ADD-ON [facility] [address] [place] [address], [facility] DTL [facility] [address] [place] [address] * Phosphorus Inorganic (09/18/2023 3:57 PM MANAGER VIDEO) Phosphorus (Inorganic), S 3.0 2.5 - 4.5 mg/dL 09/18/2023 5:41 PM MANAGER VIDEO DTL Blood (Blood, Venous) 09/18/2023 3:57 PM MANAGER VIDEO 09/18/2023 4:38 PM MANAGER VIDEO Abilio Goodson M.D. LAB BLOOD ADD-ON Performing Organization Address City/[facility]/ZIP Co de Phone Number [facility] [address] [place] [address], [facility] [address] [place] [address] * (ABNORMAL) Magnesium (09/18/2023 3:57 PM MANAGER VIDEO) Pathologist [facility] Magnesium, S 1.5(L) 1.7 - 2.3 mg/dL 09/18/2023 5:41 PM MANAGER VIDEO DTL Blood (Blood, Venous) 09/18/2023 3:57 PM MANAGER VIDEO 09/18/2023 4:38 PM MANAGER VIDEO Abilio Goodson M.D. LAB BLOOD ADD-ON Performing Organization Address [facility] Co de Phone Number [facility] [address] [place], [place] [address] [place] [address] [address] [place] [address] * (ABNORMAL) Glucose, POCT (09/18/2023 12:39 PM MANAGER VIDEO) Glucose, POCT, B 142(H) 70 - 140 mg/dL 09/18/2023 5:59 PM MANAGER VIDEO PCDE Site Capillary 09/18/2023 5:59 PM MANAGER VIDEO PCDE Blood 09/18/2023 12:3 9 PM MANAGER VIDEO 09/18/2023 5:59 PM MANAGER VIDEO Unknown Provider LAB POCT ORDERABLES- MANUAL Performing Organization Address City/[facility]/ZIP Co de Phone Number POC [facility] [address] [place] [address], [facility] PCDE [facility] POC [address] [place] [address] * DX Abdomen 1 View (09/18/2023 10:10 AM MANAGER VIDEO) Anatomical Region Laterality Modality Abdomen, Abdominal RST LOS, Abdominal ARZ LOS, Abdominal FLA LOS N/A Digital Radiography Impressions 09/18/2023 10:26 AM MANAGER VIDEO Enteric tube terminates at the pylorus, inner styloid terminates at the proximal jejunum. Mild gaseous distention of the stomach. Stable vascular calcifications. Nonobstructive bowel gas pattern degenerative changes of the visualized lumbar spine, bilateral sacroiliac joints. Narrative 09/18/2023 10:26 AM MANAGER VIDEO EXAM: ??DX ABDOMEN 1 VIEW Procedure Note Jarad Obregon M.D. - 09/18/2023 EXAM: DX ABDOMEN 1 VIEW IMPRESSION: Enteric tube terminates at the pylorus, inner styloid terminates at theproximal jejunum. Mild gaseous distention of the stomach. Stable vascularcalcifications. Nonobstructive bowel gas pattern degenerative changes ofthe visualized lumbar spine, bilateral sacroiliac joints. Clare Cuevas M.D. IMG DIAGNOSTIC IMAGI NG PROCEDURES * Glucose, POCT (09/18/2023 7:47 AM MANAGER VIDEO) Pathologist [facility] Glucose, POCT, B 119 70 - 140 mg/dL 09/18/2023 8:00 AM MANAGER VIDEO PCDE Site Capillary 09/18/2023 8:00 AM MANAGER VIDEO PCDE Blood 09/18/2023 7:47 AM MANAGER VIDEO 09/18/2023 8:00 AM MANAGER VIDEO Unknown Provider LAB POCT ORDERABLES- MANUAL POC [facility] [address] [place] [address], [facility] PCDE [facility] POC [address] [place] [address] * (ABNORMAL) Magnesium (09/18/2023 5:16 AM MANAGER VIDEO) Magnesium, S 1.2(L) 1.7 - 2.3 mg/dL 09/18/2023 6:14 AM MANAGER VIDEO DTL Blood (Blood, Venous) 09/18/2023 5:16 AM MANAGER VIDEO 09/18/2023 5:57 AM MANAGER VIDEO Abilio Goodson M.D. LAB BLOOD ADD-ON Performing Organization Address City/[facility]/ZIP Co de Phone Number [facility] [address] [place] [address] * Phosphorus Inorganic (09/18/2023 5:16 AM MANAGER VIDEO) [facility] Phosphorus (Inorganic), S 3.3 2.5 - 4.5 mg/dL 09/18/2023 6:14 AM MANAGER VIDEO DTL Blood (Blood, Venous) 09/18/2023 5:16 AM MANAGER VIDEO 09/18/2023 5:57 AM MANAGER VIDEO Abilio Goodson M.D. LAB BLOOD ADD-ON Performing Organization Address [facility] de Phone Number [facility] [address] [place] [address], [facility] 200 [place] [address] * (ABNORMAL) CBC with Differential, Blood (09/18/2023 5:16 AM MANAGER VIDEO) [facility] Hemoglobin 10.1(L) 13.2 - 16.6 g/dL 09/18/2023 5:52 AM MANAGER VIDEO DTL Hematocrit 30.5(L) 38.3 - 48.6 % 09/18/2023 5:52 AM MANAGER VIDEO DTL Erythrocytes 3.31(L) 4.35 - 5.65 x10(12)/L 09/18/2023 5:52 AM MANAGER VIDEO DTL MCV 92.1 78.2 - 97.9 fL 09/18/2023 5:52 AM MANAGER VIDEO DTL RBC Distrib Width 16.8(H) 11.8 - 14.5 % 09/18/2023 5:52 AM MANAGER VIDEO DTL Platelet Count 190 135 - 317 x10(9)/L 09/18/2023 5:52 AM MANAGER VIDEO DTL Leukocytes 1.4(L) 3.4 - 9.6 x10(9)/L 09/18/2023 5:52 AM MANAGER VIDEO DTL Neutrophils 0.26(CL) 1.56 - 6.45 x10(9)/L 09/18/2023 6:44 AM MANAGER VIDEO DHPM Lymphocytes 0.36(L) 0.95 - 3.07 x10(9)/L 09/18/2023 6:44 AM MANAGER VIDEO DTL Monocytes 0.57 0.26 - 0.81 x10(9)/L 09/18/2023 6:44 AM MANAGER VIDEO DTL Eosinophils 0.17 0.03 - 0.48 x10(9)/L 09/18/2023 6:44 AM MANAGER VIDEO DTL Basophils 0.03 0.01 - 0.08 x10(9)/L 09/18/2023 6:44 AM MANAGER VIDEO DTL Blood (Blood, Venous) 09/18/2023 5:16 AM MANAGER VIDEO 09/18/2023 5:45 AM MANAGER VIDEO Clare Cuevas M.D. LAB BLOOD ADD-ON [facility] [address] [place] [address], [facility] DTL [facility] [address] [place] [address] [facility] [address] [place] [address] * (ABNORMAL) Basic Metabolic Panel (09/18/2023 5:16 AM MANAGER VIDEO) [facility] Potassium, S 3.5(L) 3.6 - 5.2 mmol/L 09/18/2023 6:14 AM MANAGER VIDEO DTL Sodium, S 138 135 - 145 mmol/L 09/18/2023 6:14 AM MANAGER VIDEO DTL Chloride, S 99 98 - 107 mmol/L 09/18/2023 6:14 AM MANAGER VIDEO DTL Bicarbonate, S 29 22 - 29 mmol/L 09/18/2023 6:14 AM MANAGER VIDEO DTL Anion Gap 10 7 - 15 09/18/2023 6:14 AM MANAGER VIDEO DTL BUN (Blood Urea Nitrogen), S 8 8 - 24 mg/dL 09/18/2023 6:14 AM MANAGER VIDEO DTL Creatinine 0.62(L) 0.74 - 1.35 mg/dL 09/18/2023 6:14 AM MANAGER VIDEO DTL Estimated GFR (eGFR) >90 >=60 mL/min/BSA 09/18/2023 6:14 AM MANAGER VIDEO DTL Comment: Estimated GFR calculated using the 2020 CKD_EPI creatinine equation. Calcium, Total, S 8.4(L) 8.8 - 10.2 mg/dL 09/18/2023 6:14 AM MANAGER VIDEO DTL Glucose, S 125 70 - 140 mg/dL 09/18/2023 6:14 AM MANAGER VIDEO DTL Blood (Blood, Venous) 09/18/2023 5:16 AM MANAGER VIDEO 09/18/2023 5:57 AM MANAGER VIDEO Clare Cuevas M.D. LAB BLOOD ADD-ON Performing Organization Address City/[facility]/ZIP Co de Phone Number [facility] [address] [place] [address], [facility] [address] [place] [address] * Glucose, POCT (09/17/2023 9:00 PM MANAGER VIDEO) Glucose, POCT, B 115 70 - 140 mg/dL 09/17/2023 9:03 PM MANAGER VIDEO PCDE Site Capillary 09/17/2023 9:03 PM MANAGER VIDEO PCDE Last Intake ContTubFdg 09/17/2023 9:03 PM MANAGER VIDEO PCDE Blood 09/17/2023 9:00 PM MANAGER VIDEO 09/17/2023 9:03 PM MANAGER VIDEO Unknown Provider LAB POCT ORDERABLES- MANUAL POC [facility] [address] [place] [address], [facility] PCDE [facility] [address] [place] [address] * Glucose, POCT (09/17/2023 5:15 PM MANAGER VIDEO) Glucose, POCT, B 128 70 - 140 mg/dL 09/17/2023 5:18 PM MANAGER VIDEO PCDE Site Capillary 09/17/2023 5:18 PM MANAGER VIDEO PCDE Last Intake NPO 09/17/2023 5:18 PM MANAGER VIDEO PCDE Blood 09/17/2023 5:15 PM MANAGER VIDEO 09/17/2023 5:18 PM MANAGER VIDEO Unknown Provider LAB POCT ORDERABLES- MANUAL POC [facility] [address] [place] [address], [facility] PCDE [facility] POC [address] [place] [address] * FL Fluoro Less Than 1 Hour (09/17/2023 3:39 PM MANAGER VIDEO) Narrative ERCP LOS RST - 09/17/2023 3:39 PM MANAGER VIDEO This exam does not require a radiologist review or interpretation. Please refer to the patient's medical record on this date for clinical details. Devang Perez IMG FLU OROSCOPY PROCEDURES ERCP LOS RST * Surgical Pathology (09/17/2023 3:21 PM MANAGER VIDEO) 09/18/2023 11:36 AM MANAGER VIDEO DTL Report electronically signed by Heydi Hurley M.D. I verify that I have examined all relevant slides/materials for the specimen(s) and rendered or confirmed the diagnosis. 09/18/2023 11:36 AM MANAGER VIDEO DTL Gross Description Received in formalin labeled with the patient's name, medical record number, and duodenum-duodenum , third part duodenum are sixpale saenz-saenz irregular soft tissues, ranging from 0.1-0.4 cm in greatest dimension. Due to the scant nature of the tissue fragments, some orall may not survive processing. ??Specimens are submitted en toto in cassette A1. ??Grossed by [facility]. 09/18/2023 11:36 AM MANAGER VIDEO DTL Interpretation FINAL DIAGNOSIS A. Duodenum, 3rd part, endoscopic biopsy: ??Duodenal ulcer with fibrinopurulent exudates. ??Minute strips of duodenal mucosa with focal gastric foveolar metaplasia. ??No evidence of dysplasia or neoplasm. Digital imaging was used in the diagnostic assessment of this case . 09/18/2023 11:36 AM MANAGER VIDEO DTL Biopsy (Duodenum) 09/17/2023 3:21 PM MANAGER VIDEO Devang Perez LAB STEPHAN G PATH ORDERABLES Performing Organization Address City/State/[facility] Co de Phone Number [facility] [address] [place] [address], [facility] DTL [address] [place] [address] * Upper GI Endoscopy (09/17/2023 2:36 PM MANAGER VIDEO) 09/17/2023 2:36 PM MANAGER VIDEO Impressions [employer] - 09/17/2023 3:44 PM MANAGER VIDEO Post-op Diagnoses: ? - Normal esophagus. ? - Normal stomach. ? - Acquired duodenal stenosis. Biopsied. ? - Feeding tube placement was successfully performed. Narrative [facility] - 09/17/2023 3:44 PM MANAGER VIDEO Gonda 2 GI Patient Name: Hola Lau [...] Note Initiated On: 09/17/2023 2:36 PM Clare Cueavs M.D. GI PROCEDURE ORDERAB LES Performing Organization Address City/[facility] Co de Phone Number [facility] NA * Glucose, POCT (09/17/2023 12:03 PM MANAGER VIDEO) Glucose, POCT, B 122 70 - 140 mg/dL 09/17/2023 12:15 PM MANAGER VIDEO PCDE Site Capillary 09/17/2023 12:15 PM MANAGER VIDEO PCDE Blood 09/17/2023 12:0 3 PM MANAGER VIDEO 09/17/2023 12:15 PM MANAGER VIDEO Unknown Provider LAB POCT ORDERABLES- MANUAL Performing Organization Address City/[facility]/ZIP Co de Phone Number [facility] [address] [place] [address], [place] PCDE [facility] POC [address] [place] [address] * DX Abdomen 1 View (09/17/2023 9:38 AM MANAGER VIDEO) Anatomical Region Laterality Modality Abdomen, Abdominal RST LOS, Abdominal ARZ LOS, Abdominal FLA LOS N/A Digital Radiography Impressions 09/17/2023 11:19 AM MANAGER VIDEO Compared with the 09/16/2023 abdominal radiograph. The enteric tube side-port is close to the gastroesophageal junction and advancement is advised. Interval decompression of the stomach. Redistributed bowel gas. Stable vascular calcifications. ?? Narrative 09/17/2023 11:19 AM MANAGER VIDEO EXAM: ??DX ABDOMEN 1 VIEW Procedure Note Jose Ames M.D. - 09/17/2023 EXAM: DX ABDOMEN 1 VIEW IMPRESSION: Compared with the 09/16/2023 abdominal radiograph. The enteric tubeside-port is close to the gastroesophageal junction and advancement isadvised. Interval decompression of the stomach. Redistributed bowel gas.Stable vascular calcifications. Clare Cuevas M.D. IMG DIAGNOSTIC IMAGI NG PROCEDURES * Glucose, POCT (09/17/2023 7:54 AM MANAGER VIDEO) Pathologist [facility] Glucose, POCT, B 125 70 - 140 mg/dL 09/17/2023 7:57 AM MANAGER VIDEO PCDE Site Capillary 09/17/2023 7:57 AM MANAGER VIDEO PCDE Last Intake NPO 09/17/2023 7:57 AM MANAGER VIDEO PCDE Blood 09/17/2023 7:54 AM MANAGER VIDEO 09/17/2023 7:58 AM MANAGER VIDEO Unknown Provider LAB POCT ORDERABLES- MANUAL [facility] [address] [place] [address], [facility] PCDE [facility] POC [address] [place] [address] * (ABNORMAL) CBC with Differential, Blood (09/17/2023 7:26 AM MANAGER VIDEO) Pathologist [facility] Hemoglobin 9.2(L) 13.2 - 16.6 g/dL 09/17/2023 8:00 AM MANAGER VIDEO DTL Hematocrit 27.7(L) 38.3 - 48.6 % 09/17/2023 8:00 AM MANAGER VIDEO DTL Erythrocytes 3.01(L) 4.35 - 5.65 x10(12)/L 09/17/2023 8:00 AM MANAGER VIDEO DTL MCV 92.0 78.2 - 97.9 fL 09/17/2023 8:00 AM MANAGER VIDEO DTL RBC Distrib Width 17.2(H) 11.8 - 14.5 % 09/17/2023 8:00 AM MANAGER VIDEO DTL Platelet Count 170 135 - 317 x10(9)/L 09/17/2023 8:00 AM MANAGER VIDEO DTL Leukocytes 1.1(L) 3.4 - 9.6 x10(9)/L 09/17/2023 8:00 AM MANAGER VIDEO DTL Neutrophils 0.19(CL) 1.56 - 6.45 x10(9)/L 09/17/2023 9:37 AM MANAGER VIDEO PM Lymphocytes 0.29(L) 0.95 - 3.07 x10(9)/L 09/17/2023 9:37 AM MANAGER VIDEO DTL Monocytes 0.47 0.26 - 0.81 x10(9)/L 09/17/2023 9:37 AM MANAGER VIDEO DTL Eosinophils 0.15 0.03 - 0.48 x10(9)/L 09/17/2023 9:37 AM MANAGER VIDEO DTL Basophils 0.03 0.01 - 0.08 x10(9)/L 09/17/2023 9:37 AM MANAGER VIDEO DTL Blood (Blood, Venous) 09/17/2023 7:26 AM MANAGER VIDEO 09/17/2023 7:48 AM MANAGER VIDEO Clare Cuevas M.D. LAB BLOOD ADD-ON [facility] [address] [place] [address], [facility] DTL [facility] [address] [place] [address] DHPM [facility] [address] [place] [address] * (ABNORMAL) Basic Metabolic Panel (09/17/2023 7:26 AM MANAGER VIDEO) Potassium, S 3.5(L) 3.6 - 5.2 mmol/L 09/17/2023 8:50 AM MANAGER VIDEO DTL Sodium, S 134(L) 135 - 145 mmol/L 09/17/2023 8:50 AM MANAGER VIDEO DTL Chloride, S 97(L) 98 - 107 mmol/L 09/17/2023 8:50 AM MANAGER VIDEO DTL Bicarbonate, S 28 22 - 29 mmol/L 09/17/2023 8:50 AM MANAGER VIDEO DTL Anion Gap 9 7 - 15 09/17/2023 8:50 AM MANAGER VIDEO DTL BUN (Blood Urea Nitrogen), S 11 8 - 24 mg/dL 09/17/2023 8:50 AM MANAGER VIDEO DTL Creatinine 0.69(L) 0.74 - 1.35 mg/dL 09/17/2023 8:50 AM MANAGER VIDEO DTL Estimated GFR (eGFR) >90 >=60 mL/min/BSA 09/17/2023 8:50 AM MANAGER VIDEO DTL Comment: Estimated GFR calculated using the 2020 CKD_EPI creatinine equation. Calcium, Total, S 8.3(L) 8.8 - 10.2 mg/dL 09/17/2023 8:52 AM MANAGER VIDEO DTL Glucose, S 125 70 - 140 mg/dL 09/17/2023 8:50 AM MANAGER VIDEO DTL Blood (Blood, Venous) 09/17/2023 7:26 AM MANAGER VIDEO 09/17/2023 8:18 AM MANAGER VIDEO Clare Cuevas M.D. LAB BLOOD ADD-ON [facility] [address] [place] [address], [facility] DTL [facility] [address] [place] [address] * Glucose, POCT (09/17/2023 3:37 AM MANAGER VIDEO) Glucose, POCT, B 107 70 - 140 mg/dL 09/17/2023 3:40 AM MANAGER VIDEO PCDE Site Capillary 09/17/2023 3:40 AM MANAGER VIDEO PCDE Last Intake NPO 09/17/2023 3:40 AM MANAGER VIDEO PCDE Blood 09/17/2023 3:37 AM MANAGER VIDEO 09/17/2023 3:40 AM MANAGER VIDEO Unknown Provider LAB POCT ORDERABLES- MANUAL POC [facility] [address] [place] [address], [place] PCDE [facility] POC [address] [place] [address] * Glucose, POCT (09/16/2023 9:07 PM MANAGER VIDEO) Glucose, POCT, B 96 70 - 140 mg/dL 09/16/2023 9:11 PM MANAGER VIDEO PCDE Site Capillary 09/16/2023 9:11 PM MANAGER VIDEO PCDE Last Intake 3-4 hours 09/16/2023 9:11 PM MANAGER VIDEO PCDE Blood 09/16/2023 9:07 PM MANAGER VIDEO 09/16/2023 9:11 PM MANAGER VIDEO Unknown Provider LAB POCT ORDERABLES- MANUAL Performing Organization Address City/[facility]/ZIP Co de Phone Number POC [facility] [address] [place] [address], [place] PCDE [facility] POC [address] [place] [address] * Glucose, POCT (09/16/2023 7:06 PM MANAGER VIDEO) Glucose, POCT, B 81 70 - 140 mg/dL 09/16/2023 7:10 PM MANAGER VIDEO PCDE Site Capillary 09/16/2023 7:10 PM MANAGER VIDEO PCDE Last Intake 3-4 hours 09/16/2023 7:10 PM MANAGER VIDEO PCDE Blood 09/16/2023 7:06 PM MANAGER VIDEO 09/16/2023 7:10 PM MANAGER VIDEO Unknown Provider LAB POCT ORDERABLES- MANUAL [facility] [address] [place] [address], [place] PCDE [facility] POC [address] [place] [address] * Glucose, POCT (09/16/2023 6:22 PM MANAGER VIDEO) Glucose, POCT, B 80 70 - 140 mg/dL 09/16/2023 6:25 PM MANAGER VIDEO PCDE Site Capillary 09/16/2023 6:25 PM MANAGER VIDEO PCDE Last Intake NPO 09/16/2023 6:25 PM MANAGER VIDEO PCDE Blood 09/16/2023 6:22 PM MANAGER VIDEO 09/16/2023 6:25 PM MANAGER VIDEO Unknown Provider LAB POCT ORDERABLES- MANUAL Performing Organization Address City/[facility]/ZIP Co de Phone Number [facility] [address] [place] [address], [facility] PCDE [facility] POC [address] [place] [address] * Glucose, POCT (09/16/2023 5:17 PM MANAGER VIDEO) Glucose, POCT, B 72 70 - 140 mg/dL 09/16/2023 5:24 PM MANAGER VIDEO PCDE Site Capillary 09/16/2023 5:24 PM MANAGER VIDEO PCDE Last Intake 3-4 hours 09/16/2023 5:24 PM MANAGER VIDEO PCDE Blood 09/16/2023 5:17 PM MANAGER VIDEO 09/16/2023 5:24 PM MANAGER VIDEO Unknown Provider LAB POCT ORDERABLES- MANUAL Performing Organization Address City/[facility] Co de Phone Number [facility] [address] [place] [address], [facility] PCDE [facility] POC [address] [place] [address] * (ABNORMAL) Glucose, POCT (09/16/2023 4:49 PM MANAGER VIDEO) Glucose, POCT, B 61(L) 70 - 140 mg/dL 09/16/2023 4:51 PM MANAGER VIDEO PCDE Site Capillary 09/16/2023 4:51 PM MANAGER VIDEO PCDE Last Intake 3-4 hours 09/16/2023 4:51 PM MANAGER VIDEO PCDE Blood 09/16/2023 4:49 PM MANAGER VIDEO 09/16/2023 4:51 PM MANAGER VIDEO Unknown Provider LAB POCT ORDERABLES- MANUAL Performing Organization Address City/[facility]/ZIP Co de Phone Number POC [facility] [address] [place] [address], [facility] PCDE [facility] POC [address] [place] [address] * Glucose, POCT (09/16/2023 12:59 PM MANAGER VIDEO) Glucose, POCT, B 70 70 - 140 mg/dL 09/16/2023 1:08 PM MANAGER VIDEO PCDE Site Capillary 09/16/2023 1:08 PM MANAGER VIDEO PCDE Last Intake 3-4 hours 09/16/2023 1:08 PM MANAGER VIDEO PCDE Blood 09/16/2023 12:5 9 PM MANAGER VIDEO 09/16/2023 1:08 PM MANAGER VIDEO Unknown Provider LAB POCT ORDERABLES- MANUAL Performing Organization Address City/[facility]/ZIP Co de Phone Number [facility] [address] [place] [address], [facility] PCDE [facility] POC [address] [place] [address] * DX Abdomen 1 View (09/16/2023 11:20 AM MANAGER VIDEO) Anatomical Region Laterality Modality Abdomen, Abdominal RST LOS, Abdominal ARZ LOS, Abdominal FLA LOS N/A Digital Radiography Impressions 09/16/2023 12:01 PM MANAGER VIDEO Similar positioning of the enteric tube side-port since 09/15/2023, projecting just beyond the gastroesophageal junction. Similar slight gastric distention. No radiographic evidence of bowel obstruction. Narrative 09/16/2023 12:01 PM MANAGER VIDEO EXAM: ??DX ABDOMEN 1 VIEW Procedure Note Jose Ames M.D. - 09/16/2023 EXAM: DX ABDOMEN 1 VIEW IMPRESSION: Similar positioning of the enteric tube side-port since 09/15/2023,projecting just beyond the gastroesophageal junction. Similar slightgastric distention. No radiographic evidence of bowel obstruction. Clare Cuevas M.D. IMG DIAGNOSTIC IMAGI NG PROCEDURES * Glucose, POCT (09/16/2023 10:17 AM MANAGER VIDEO) Glucose, POCT, B 80 70 - 140 mg/dL 09/16/2023 10:21 AM MANAGER VIDEO PCDE Site Capillary 09/16/2023 10:21 AM MANAGER VIDEO PCDE Last Intake 3-4 hours 09/16/2023 10:21 AM MANAGER VIDEO PCDE Blood 09/16/2023 10:1 7 AM MANAGER VIDEO 09/16/2023 10:21 AM MANAGER VIDEO Unknown Provider LAB POCT ORDERABLES- MANUAL Performing Organization Address [facility] Co de Phone Number [facility] [address] [place] [address], [facility] PCDE [facility] POC [address] [place] [address] * (ABNORMAL) Glucose, POCT (09/16/2023 9:12 AM MANAGER VIDEO) Glucose, POCT, B 66(L) 70 - 140 mg/dL 09/16/2023 9:24 AM MANAGER VIDEO PCDE Site Capillary 09/16/2023 9:24 AM MANAGER VIDEO PCDE Last Intake 3-4 hours 09/16/2023 9:24 AM MANAGER VIDEO PCDE Blood 09/16/2023 9:12 AM MANAGER VIDEO 09/16/2023 9:25 AM MANAGER VIDEO Unknown Provider LAB POCT ORDERABLES- MANUAL Performing Organization Address [facility] Co de Phone Number [facility] [address] [place] [address], [facility] PCDE [facility] POC [address] [place] [address] * (ABNORMAL) Basic Metabolic Panel (09/16/2023 8:01 AM MANAGER VIDEO) Potassium, S 3.9 3.6 - 5.2 mmol/L 09/16/2023 11:09 AM MANAGER VIDEO DTL Sodium, S 139 135 - 145 mmol/L 09/16/2023 11:09 AM MANAGER VIDEO DTL Chloride, S 99 98 - 107 mmol/L 09/16/2023 11:09 AM MANAGER VIDEO DTL Bicarbonate, S 24 22 - 29 mmol/L 09/16/2023 11:09 AM MANAGER VIDEO DTL Anion Gap 16(H) 7 - 15 09/16/2023 11:09 AM MANAGER VIDEO DTL BUN (Blood Urea Nitrogen), S 16 8 - 24 mg/dL 09/16/2023 11:09 AM MANAGER VIDEO DTL Creatinine 0.79 0.74 - 1.35 mg/dL 09/16/2023 11:09 AM MANAGER VIDEO DTL Estimated GFR (eGFR) >90 >=60 mL/min/BSA 09/16/2023 11:09 AM MANAGER VIDEO DTL Comment: Estimated GFR calculated using the 2020 CKD_EPI creatinine equation. Calcium, Total, S 8.5(L) 8.8 - 10.2 mg/dL 09/16/2023 11:09 AM MANAGER VIDEO DTL Glucose, S 73 70 - 140 mg/dL 09/16/2023 11:09 AM MANAGER VIDEO DTL Blood (Blood, Venous) 09/16/2023 8:01 AM MANAGER VIDEO 09/16/2023 8:31 AM MANAGER VIDEO Clare Cuevas M.D. LAB BLOOD ADD-ON [facility] [place] [address], [place] [address] * (ABNORMAL) CBC with Differential, Blood (09/16/2023 8:01 AM MANAGER VIDEO) Hemoglobin 9.4(L) 13.2 - 16.6 g/dL 09/16/2023 8:49 AM MANAGER VIDEO DTL Hematocrit 29.1(L) 38.3 - 48.6 % 09/16/2023 8:49 AM MANAGER VIDEO DTL Erythrocytes 3.10(L) 4.35 - 5.65 x10(12)/L 09/16/2023 8:49 AM MANAGER VIDEO DTL MCV 93.9 78.2 - 97.9 fL 09/16/2023 8:49 AM MANAGER VIDEO DTL RBC Distrib Width 17.5(H) 11.8 - 14.5 % 09/16/2023 8:49 AM MANAGER VIDEO DTL Platelet Count 193 135 - 317 x10(9)/L 09/16/2023 8:49 AM MANAGER VIDEO DTL Leukocytes 1.2(L) 3.4 - 9.6 x10(9)/L 09/16/2023 8:49 AM MANAGER VIDEO DTL Neutrophils 0.29(CL) 1.56 - 6.45 x10(9)/L 09/16/2023 9:38 AM MANAGER VIDEO DHPM Lymphocytes 0.33(L) 0.95 - 3.07 x10(9)/L 09/16/2023 9:38 AM MANAGER VIDEO DTL Monocytes 0.44 0.26 - 0.81 x10(9)/L 09/16/2023 9:38 AM MANAGER VIDEO DTL Eosinophils 0.12 0.03 - 0.48 x10(9)/L 09/16/2023 9:38 AM MANAGER VIDEO DTL Basophils 0.06 0.01 - 0.08 x10(9)/L 09/16/2023 9:38 AM MANAGER VIDEO DTL Blood (Blood, Venous) 09/16/2023 8:01 AM MANAGER VIDEO 09/16/2023 8:15 AM MANAGER VIDEO Clare Cuevas M.D. LAB BLOOD ADD-ON [facility] [address] [place] [address], [facility] DTL [facility] [address] [place] [address] [facility] [address] [place] [address] * CMV DNA Detect / Quant, Plasma (09/16/2023 5:14 AM MANAGER VIDEO) [facility] CMV DNA Detect/Quant, P Undetected Undetected IU/mL 09/17/2023 7:25 AM MANAGER VIDEO [facility] Comment: Result in log IU/mL is Undetected. ----ADDITIONAL INFORMATION---- The quantification range of this assay is 35 to 10,000,000 IU/mL (1.54 log to 7.00 log IU/mL). Testing was performed using the brady CMV test ([employer] with the brady KIT digital0 System. Blood (Blood, Venous) 09/16/2023 5:14 AM MANAGER VIDEO 09/16/2023 8:19 AM MANAGER VIDEO Clare Cuevas M.D. LAB MICROBIOLOGY - B LOOD ORDERABLES Performing Organization Address City/[facility]/ZIP Co de Phone Number [facility] [address] [place] [address] [facility] [address] [place] [address] [place] [address] * EBV DNA Detect/Quant (09/16/2023 5:14 AM MANAGER VIDEO) [facility] EBV DNA Detect/Quant, P Undetected Undetected IU/mL 09/17/2023 1:06 PM MANAGER VIDEO [facility] Comment: Result in log IU/mL is Undetected. ----ADDITIONAL INFORMATION---- The quantification range of this assay is 35 to 100,000,000 IU/mL (1.54 log to 8.00 log IU/mL). Testing was performed using the brady EBV test ([employer] with the brady [id number] System. Blood (Blood, Venous) 09/16/2023 5:14 AM MANAGER VIDEO 09/16/2023 8:19 AM MANAGER VIDEO Clare Cuevas M.D. LAB MICROBIOLOGY - B LOOD ORDERABLES Performing Organization Address [facility] Co de Phone Number [facility] [address] [place] [address] [facility] [address] [place] [address] [place] [address] * Glucose, POCT (09/15/2023 9:45 PM MANAGER VIDEO) [facility] Glucose, POCT, B 89 70 - 140 mg/dL 09/15/2023 10:00 PM MANAGER VIDEO PCDE Site Capillary 09/15/2023 10:00 PM MANAGER VIDEO PCDE Last Intake > 4 hours 09/15/2023 10:00 PM MANAGER VIDEO PCDE Blood 09/15/2023 9:45 PM MANAGER VIDEO 09/15/2023 10:00 PM MANAGER VIDEO Unknown Provider LAB POCT ORDERABLES- MANUAL Performing Organization Address City/[facility]/ZIP Co de Phone Number POC [facility] [address] [place], [place] [address] PCDE [facility] POC [address] [place] [address] * Glucose, POCT (09/15/2023 4:25 PM MANAGER VIDEO) Glucose, POCT, B 83 70 - 140 mg/dL 09/15/2023 4:32 PM MANAGER VIDEO PCDE Site Capillary 09/15/2023 4:32 PM MANAGER VIDEO PCDE Last Intake NPO 09/15/2023 4:32 PM MANAGER VIDEO PCDE Blood 09/15/2023 4:25 PM MANAGER VIDEO 09/15/2023 4:32 PM MANAGER VIDEO Unknown Provider LAB POCT ORDERABLES- MANUAL Performing Organization Address City/[facility]/ZIP Co de Phone Number [facility] [address] [place] [address], [facility] PCDE [facility] POC [address] [place] [address] * Glucose, POCT (09/15/2023 11:27 AM MANAGER VIDEO) Glucose, POCT, B 91 70 - 140 mg/dL 09/15/2023 11:29 AM MANAGER VIDEO PCDE Site Capillary 09/15/2023 11:29 AM MANAGER VIDEO PCDE Blood 09/15/2023 11:2 7 AM MANAGER VIDEO 09/15/2023 11:30 AM MANAGER VIDEO Unknown Provider LAB POCT ORDERABLES- MANUAL [facility] [address] [place] [address], [facility] PCDE [facility] POC [address] [place] [address] * Glucose, POCT (09/15/2023 8:29 AM MANAGER VIDEO) Glucose, POCT, B 89 70 - 140 mg/dL 09/15/2023 8:35 AM MANAGER VIDEO PCDE Site Capillary 09/15/2023 8:35 AM MANAGER VIDEO PCDE Last Intake NPO 09/15/2023 8:35 AM MANAGER VIDEO PCDE Blood 09/15/2023 8:29 AM MANAGER VIDEO 09/15/2023 8:35 AM MANAGER VIDEO Unknown Provider LAB POCT ORDERABLES- MANUAL Performing Organization Address City/[facility]/ZIP Co de Phone Number [facility] [address] [place] [address], [facility] PCDE [facility] [address] [place] [address] * DX Abdomen 1 View (09/15/2023 8:24 AM MANAGER VIDEO) Anatomical Region Laterality Modality Abdomen, Abdominal RST LOS, Abdominal ARZ LOS, Abdominal FLA LOS N/A Digital Radiography Impressions 09/15/2023 9:24 AM MANAGER VIDEO Enteric tube tip in side-port in the proximal stomach with decrease gaseous distention. Increased stool throughout nondilated colon, now moderate to large. Overall paucity of small bowel gas. No gross bowel obstruction. Excreted contrast in the bladder. Scattered vascular calcifications. Narrative 09/15/2023 9:24 AM MANAGER VIDEO EXAM: ??DX ABDOMEN 1 VIEW Procedure Note Dereje Sepulveda D.O. - 09/15/2023 EXAM: DX ABDOMEN 1 VIEW IMPRESSION: Enteric tube tip in side-port in the proximal stomach with decreasegaseous distention. Increased stool throughout nondilated colon, nowmoderate to large. Overall paucity of small bowel gas. No gross bowelobstruction. Excreted contrast in the bladder. Scattered vascular calcifications. Michelle Ac M.D. IMG DIAGNOSTIC IMAG ING PROCEDURES * LD (Lactate Dehydrogenase) (09/15/2023 5:05 AM MANAGER VIDEO) [facility] Gricelda LD 195 122 - 222 U/L 09/15/2023 6:02 AM MANAGER VIDEO DTL Blood (Blood, Venous) 09/15/2023 5:05 AM MANAGER VIDEO 09/15/2023 5:38 AM MANAGER VIDEO Michelle Ac M.D. LAB BLOOD NON ADD-O N [facility] [address] [place] [address], [facility] DTL [facility] [address] [place] [address] * (ABNORMAL) Comprehensive Metabolic Panel (09/15/2023 5:05 AM MANAGER VIDEO) Pathologist [facility] Potassium, S 3.8 3.6 - 5.2 mmol/L 09/15/2023 6:12 AM MANAGER VIDEO DTL Sodium, S 139 135 - 145 mmol/L 09/15/2023 6:12 AM MANAGER VIDEO DTL Chloride, S 101 98 - 107 mmol/L 09/15/2023 6:12 AM MANAGER VIDEO DTL Bicarbonate, S 28 22 - 29 mmol/L 09/15/2023 6:12 AM MANAGER VIDEO DTL Anion Gap 10 7 - 15 09/15/2023 6:12 AM MANAGER VIDEO DTL BUN (Blood Urea Nitrogen), S 13 8 - 24 mg/dL 09/15/2023 6:12 AM MANAGER VIDEO DTL Creatinine 0.72(L) 0.74 - 1.35 mg/dL 09/15/2023 6:12 AM MANAGER VIDEO DTL Estimated GFR (eGFR) >90 >=60 mL/min/BS A 09/15/2023 6:12 AM MANAGER VIDEO DTL Comment: Estimated GFR calculated using the 2020 CKD_EPI creatinine equation. Calcium, Total, S 8.4(L) 8.8 - 10.2 mg/dL 09/15/2023 6:12 AM MANAGER VIDEO DTL Glucose, S 83 70 - 140 mg/dL 09/15/2023 6:12 AM MANAGER VIDEO DTL Protein, Total, S 4.8(L) 6.3 - 7.9 g/dL 09/15/2023 6:12 AM MANAGER VIDEO DTL Albumin, S 3.2(L) 3.5 - 5.0 g/dL 09/15/2023 6:12 AM MANAGER VIDEO DTL Aspartate Aminotransferase (AST), S 24 8 - 48 U/L 09/15/2023 6:12 AM MANAGER VIDEO DTL Alkaline Phosphatase, S 153(H) 40 - 129 U/L 09/15/2023 6:12 AM MANAGER VIDEO DTL Alanine Aminotransferase (ALT), S 16 7 - 55 U/L 09/15/2023 6:12 AM MANAGER VIDEO DTL Bilirubin, Total, S 0.3 0.0 - 1.2 mg/dL 09/15/2023 6:12 AM MANAGER VIDEO DTL Blood (Blood, Venous) 09/15/2023 5:05 AM MANAGER VIDEO 09/15/2023 5:51 AM MANAGER VIDEO Michelle Ac M.D. LAB BLOOD ADD-ON [facility] [address] [place] [address], [facility] DTL [facility] [address] [place] [address] * (ABNORMAL) CBC with Differential, Blood (09/15/2023 5:05 AM MANAGER VIDEO) Hemoglobin 8.6(L) 13.2 - 16.6 g/dL 09/15/2023 5:44 AM MANAGER VIDEO DTL Hematocrit 26.3(L) 38.3 - 48.6 % 09/15/2023 5:44 AM MANAGER VIDEO DTL Erythrocytes 2.84(L) 4.35 - 5.65 x10(12)/L 09/15/2023 5:44 AM MANAGER VIDEO DTL MCV 92.6 78.2 - 97.9 fL 09/15/2023 5:44 AM MANAGER VIDEO DTL RBC Distrib Width 17.9(H) 11.8 - 14.5 % 09/15/2023 5:44 AM MANAGER VIDEO DTL Platelet Count 172 135 - 317 x10(9)/L 09/15/2023 5:44 AM MANAGER VIDEO DTL Leukocytes 1.6(L) 3.4 - 9.6 x10(9)/L 09/15/2023 5:44 AM MANAGER VIDEO DTL Neutrophils 0.49(CL) 1.56 - 6.45 x10(9)/L 09/15/2023 6:53 AM MANAGER VIDEO [facility] Comment:Rechecked Lymphocytes 0.43(L) 0.95 - 3.07 x10(9)/L 09/15/2023 6:53 AM MANAGER VIDEO DTL Monocytes 0.39 0.26 - 0.81 x10(9)/L 09/15/2023 6:53 AM MANAGER VIDEO DTL Eosinophils 0.19 0.03 - 0.48 x10(9)/L 09/15/2023 6:53 AM MANAGER VIDEO DTL Basophils 0.06 0.01 - 0.08 x10(9)/L 09/15/2023 6:53 AM MANAGER VIDEO [facility] Blood (Blood, Venous) 09/15/2023 5:05 AM MANAGER VIDEO 09/15/2023 5:35 AM MANAGER VIDEO Michelle Ac M.D. LAB BLOOD ADD-ON Performing Organization Address City/[facility]/ZIP Co de Phone Number [facility] [address] [place] [address], [facility] DTL [facility] [address] [place] [address] DHPM [facility] [address] [place] [address] * (ABNORMAL) Haptoglobin (09/15/2023 5:02 AM MANAGER VIDEO) Haptoglobin, S 251(H) 30 - 200 mg/dL 09/16/2023 1:58 PM MANAGER VIDEO [facility] Blood (Blood, Venous) 09/15/2023 5:02 AM MANAGER VIDEO 09/16/2023 10:21 AM MANAGER VIDEO Michelle Ac M.D. LAB BLOOD ADD-ON Performing Organization Address City/[facility] Co de Phone Number [facility] [address] [place] [address] [facility] [address] [place] [address] * DX Abdomen Portable Anterior Posterior 1 View (09/14/2023 10:51 PM MANAGER VIDEO) Anatomical Region Laterality Modality Abdomen, Abdominal RST LOS, Abdominal ARZ LOS, Abdominal FLA LOS N/A Digital Radiography Impressions 09/15/2023 6:29 AM MANAGER VIDEO NG tube with tip and sidehole in the stomach. Narrative 09/15/2023 6:29 AM MANAGER VIDEO EXAM: ??DX ABDOMEN PORTABLE ANTERIOR POSTERIOR 1 VIEW Procedure Note Dereje Sepulveda D.O. - 09/15/2023 EXAM: DX ABDOMEN PORTABLE ANTERIOR POSTERIOR 1 VIEW IMPRESSION: NG tube with tip and sidehole in the stomach. Aris Mina P.A.-C. IMG DIAGNOSTIC I MAGING PROCEDURES * CT Abdomen Pelvis with IV Contrast (09/14/2023 9:20 PM MANAGER VIDEO) Anatomical Region Laterality Modality Abdomen, Pelvis, Abdominal R ST LOS, Abdominal ARZ LOS, Abdominal FLA LOS N/A Computed Tomograp hy, Computed Tomography 09/14/2023 9:17 PM MANAGER VIDEO Impressions 09/14/2023 9:45 PM MANAGER VIDEO 1. 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 No evidence for perforation. 2. Resolved small bilateral pleural effusions. Narrative 09/14/2023 9:45 PM MANAGER VIDEO EXAM: ??CT ABDOMEN PELVIS WITH IV CONTRAST COMPARISON: ??PET/CTs 08/09/2023, CT abdomen/pelvis 08/05/2023, 05/11/2023 FINDINGS: ?? Increased caliber of the descending duodenum measuring up to 4.0 cm with abrupt tapering at the area of known lymphomatous involvement centered in the 3rd segment of the duodenum (series 6, image 30). The remainder of the small bowel is decompressed. Large bowel is normal in caliber. Normal appendix. Normal appearance of the liver and gallbladder. Diffuse pancreatic parenchymal atrophy. Stable cystic lesion in the head of the pancreas (series 3, image 53). Enlargement of the prostate gland. Stable enlarged central mesenteric node measuring 1.4 cm (series 3, image 76). No new or enlarging abdominopelvic lymphadenopathy. No free fluid. No free intraperitoneal air. Aortoiliac atherosclerotic calcifications. Degenerative changes of the skeleton. Resolved small bilateral pleural effusions. Bibasilar interstitial and reticular fibrosis with superimposed interlobular septal thickening likely representing. Dense mitral annular calcification. Procedure Note Chuy Oneil M.D. - 09/14/2023 EXAM: CT ABDOMEN PELVIS WITH IV CONTRAST COMPARISON: PET/CTs 08/09/2023, CT abdomen/pelvis 08/05/2023,05/11/2023 FINDINGS: Increased caliber of the descending duodenum measuring up to 4.0 cm withabrupt tapering at the area of known lymphomatous involvement centered inthe 3rd segment of the duodenum (series 6, image 30). The remainder of thesmall bowel is decompressed. Large bowel is normal in caliber. Normal appendix. Normal appearance of the liver and gallbladder. Diffuse pancreaticparenchymal atrophy. Stable cystic lesion in the head of the pancreas(series 3, image 53). Enlargement of the prostate gland. Stable enlarged central mesenteric node measuring 1.4 cm (series 3, image76). No new or enlarging abdominopelvic lymphadenopathy. No free fluid. Nofree intraperitoneal air. Aortoiliac atherosclerotic calcifications.Degenerative changes of the skeleton. Resolved small bilateral pleural effusions. Bibasilar interstitial andreticular fibrosis with superimposed interlobular septal thickening likelyrepresenting. Dense mitral annular calcification. IMPRESSION: 1. 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 No evidencefor perforation. 2. Resolved small bilateral pleural effusions. Aris Mina P.A.-C. IMG CT PROCEDURE S * Microscopic Manual (09/14/2023 8:28 PM MANAGER VIDEO) Pathologist [facility] Microscopy Normal 09/14/2023 9:21 PM MANAGER VIDEO DTL RBC <3 <3 /hpf 09/14/2023 9:21 PM MANAGER VIDEO DTL WBC 1-3 /hpf 09/14/2023 9:21 PM MANAGER VIDEO DTL Comment: ----REFERENCE VALUE---- <4 ??(Males) <11 (Females) Casts, Hyaline Occas /lpf 09/14/2023 9:21 PM MANAGER VIDEO DTL Squamous Epithelial Cells, U 1-3 /hpf 09/14/2023 9:21 PM MANAGER VIDEO DTL Urine 09/14/2023 8:28 PM MANAGER VIDEO 09/14/2023 9:05 PM MANAGER VIDEO Aris Mina P.A.-C. LAB URINE ORDERA BLES [facility] [address] [place] [address], [facility] DTL [facility] [address] [place] [address] * (ABNORMAL) Dipstick, Urine (09/14/2023 8:28 PM MANAGER VIDEO) Hemoglobin, QL, U Negative Negative 09/14/2023 9:05 PM MANAGER VIDEO DTL Leukocyte Esterase, U Negative Negative 09/14/2023 9:05 PM MANAGER VIDEO DTL Nitrite, U Negative Negative 09/14/2023 9:05 PM MANAGER VIDEO DTL Ketone, U Negative Negative mg/dL 09/14/2023 9:05 PM MANAGER VIDEO DTL Glucose, U >=1000(A) Negative mg/dL 09/14/2023 9:05 PM MANAGER VIDEO DTL Urine 09/14/2023 8:28 PM MANAGER VIDEO 09/14/2023 8:56 PM MANAGER VIDEO Aris Mina P.A.-C. LAB URINE ORDERA BLES Performing Organization Address City/[facility]/ZIP Co de Phone Number [facility] [address] [place] [address], [facility] [address] [place] [address] * pH, Urine (09/14/2023 8:28 PM MANAGER VIDEO) Pathologist [facility] pH, U 7.1 4.5 - 8.0 09/14/2023 9:1 6 PM MANAGER VIDEO DTL Urine 09/14/2023 8:28 PM MANAGER VIDEO 09/14/2023 8:56 PM MANAGER VIDEO Aris Mina P.A.-C. LAB URINE ORDERA BLES Performing Organization Address City/[facility]/ZIP Co de Phone Number [facility] [address] [place] [address], [facility] [address] [place] [address] * Osmolality, Urine (09/14/2023 8:28 PM MANAGER VIDEO) Osmolality, U 610 150 - 1150 mOsm/kg 09/14/2023 9:16 PM MANAGER VIDEO DTL Urine 09/14/2023 8:28 PM MANAGER VIDEO 09/14/2023 8:56 PM MANAGER VIDEO Aris Mina P.A.-C. LAB URINE ORDERA BLES Performing Organization Address [facility] Co de Phone Number [facility] [address] [place] [address], [facility] DTL [facility] [address] [place] [address] * Influenza A, B, RSV, PCR, Rapid (09/14/2023 8:28 PM MANAGER VIDEO) Influenza A, PCR, Rapid, V Negative Negative 09/14/2023 9:00 PM MANAGER VIDEO [facility] Influ[facility] B, PCR, Rapid, V Negative Negative 09/14/2023 9:00 PM MANAGER VIDEO [facility] Resp Synctial Virus, PCR, Rapid Negative Negative 09/14/2023 9:00 PM MANAGER VIDEO [facility] Specimen Source Swab, Nasopharynx 09/14/2023 8:59 PM MANAGER VIDEO [facility] Swab (Nasopharynx) 09/14/2023 8:28 PM MANAGER VIDEO 09/14/2023 8:32 PM MANAGER VIDEO Aris Mina P.A.-C. LAB MICROBIOLOGY - GENERAL ORDERABLES Performing Organization Address City/[facility] Co de Phone Number [facility] [address] [place], [place] [address] [address] [place] [address] * SARS Coronavirus 2, PCR Rapid Symptomatic (09/14/2023 8:28 PM MANAGER VIDEO) Pathologist [facility] SARS CoV-2, PCR, Rapid, V Undetected Undetected 09/14/2023 8:59 PM MANAGER VIDEO [facility] Comment: ----ADDITIONAL INFORMATION---- This RT-PCR test was performed using the Jesus SARS-CoV-2 and Influenza A/B Reagent assay from [employer], which has received Emergency Use Authorization(EUA) by the U.S. Food and Drug Administration. Fact sheets for this Emergency Use Authorization (EUA) assay can be found at the following links: For Healthcare Providers: https://www.fda.gov/media/083390/download For Patients: https://www.fda.gov/media/150985/download SARS Coronavirus 2, Rapid, Source Swab, Nasopharynx 09/14/2023 8:32 PM MANAGER VIDEO STMA Swab (Nasopharynx) 09/14/2023 8:28 PM MANAGER VIDEO 09/14/2023 8:32 PM MANAGER VIDEO Aris Mina P.A.-C. LAB MICROBIOLOGY - GENERAL ORDERABLES Performing Organization Address [facility] Co de Phone Number [facility] [address] [place] [address], [facility] STMA [facility] [address] [place] [address] * Bacterial Culture, Aerobic + Susceptibility, Urine (09/14/2023 8:28 PM MANAGER VIDEO) Urine Culture No growth after 1 day of incubation. 09/16/2023 7:12 AM MANAGER VIDEO DTL Urine (Urine, Midstream) 09/14/2023 8:28 PM MANAGER VIDEO 09/14/2023 9:05 PM MANAGER VIDEO Comment:Specimen Source Site : Urine Aris Mina P.A.-C. LAB MICROBIOLOGY - GENERAL ORDERABLES Performing Organization Address [facility] Co de Phone Number [facility] [address] [place] [address], [facility] DTL [address] [address] * (ABNORMAL) Urinalysis with Microscopic: Urine, Midstream (09/14/2023 8:28 PM MANAGER VIDEO) Source Urine, Urine, Midstream 09/14/2023 8:56 PM MANAGER VIDEO DTL Color, U Yellow 09/14/2023 8:56 PM MANAGER VIDEO DTL Clarity, U Clear 09/14/2023 8:56 PM MANAGER VIDEO DTL Protein, U 148(H) <26 mg/dL 09/14/2023 9:37 PM MANAGER VIDEO DTL Protein/Osmol ality 2.43(H) <0.42 ratio 09/14/2023 9:37 PM MANAGER VIDEO DTL Predicted 24 HR Protein, U 2191(H) <229 mg/24 h 09/14/2023 9:37 PM MANAGER VIDEO DTL Predicted Range 696-6905 mg/24 h 09/14/2023 9:37 PM MANAGER VIDEO DTL Comment Micro done on <10 mL 09/14/2023 9:17 PM MANAGER VIDEO DTL Urine (Urine, Midstream) 09/14/2023 8:28 PM MANAGER VIDEO 09/14/2023 8:56 PM MANAGER VIDEO Aris Mina P.A.-C. LAB URINE ORDERA BLES Performing Organization Address City/[facility]/ZIP Co de Phone Number [facility] [address] [place] [address], [facility] [address] [place] [address] * LD (Lactate Dehydrogenase) (09/14/2023 8:18 PM MANAGER VIDEO) [facility] LD 215 122 - 222 U/L 09/14/2023 9:30 PM MANAGER VIDEO DTL Blood (Blood, Venous) 09/14/2023 8:18 PM MANAGER VIDEO 09/14/2023 9:05 PM MANAGER VIDEO Aris Mina P.A.-C. LAB BLOOD NON AD D-ON Performing Organization Address City/[facility] Co de Phone Number [facility] [address] [place] [address], [facility] [address] [place] [address] * (ABNORMAL) SPSMA Result (09/14/2023 8:14 PM MANAGER VIDEO) [facility] Neutrophilic Segs and Bands 33(L) 50 - 75 % 09/15/2023 3:06 AM MANAGER VIDEO DHPM Lymphocytes 32 18 - 42 % 09/15/2023 3:06 AM MANAGER VIDEO DHPM Monocytes 24(H) 2 - 11 % 09/15/2023 3:06 AM MANAGER VIDEO DHPM Eosinophils 8(H) 1 - 3 % 09/15/2023 3:06 AM MANAGER VIDEO DHPM Basophils 3(H) 0 - 2 % 09/15/2023 3:06 AM MANAGER VIDEO DHPM Interpretation See Comment 3:06 AM MANAGER VIDEO DHPM Comment:Polychromasia is pre sent. No schistocytes are seen. No platelet clumping. Reviewed by: Kaylen 09/15/2023 3:06 AM MANAGER VIDEO [facility] Blood (Blood, Venous) 09/14/2023 8:14 PM MANAGER VIDEO 09/15/2023 12:42 AM MANAGER VIDEO Michelle Ac M.D. LAB BLOOD ADD-ON Performing Organization Address City/[facility]/ZIP Co de Phone Number [facility] [address] [place] [address] * (ABNORMAL) Lactate for Sepsis with Reflex, POCT (09/14/2023 8:14 PM MANAGER VIDEO) Pathologist [facility] Lactate, POCT 0.42(L) 0.50 - 2.20 mmol/L 09/14/2023 8:26 PM MANAGER VIDEO PCLX Blood (Blood, Venous) 09/14/2023 8:14 PM MANAGER VIDEO 09/14/2023 8:14 PM MANAGER VIDEO Aris Mina P.A.-C. LAB POCT ORDERAB LES - DEVICE Performing Organization Address [facility] de Phone Number POC [facility] [address] [place] [address], [facility] PCLX [facility] POC [address] [place] [address] * Bacteria / Joel Culture, Blood # 2 (09/14/2023 8:14 PM MANAGER VIDEO) Pathologist [facility] Bacteria/Torrie da Culture, Blood No growth after 5 days of incubation. 09/19/2023 9:02 PM MANAGER VIDEO DTL Blood (Blood, Peripheral Draw) 09/14/2023 8:14 PM MANAGER VIDEO 09/14/2023 8:30 PM MANAGER VIDEO Comment:Specimen Source Site : Blood Aris Mina P.A.-C. LAB MICROBIOLOGY - GENERAL ORDERABLES Performing Organization Address City/[facility]/ZIP Co de Phone Number [facility] [address] [place] [address] * Bacteria / Joel Culture, Blood #1 (09/14/2023 8:14 PM MANAGER VIDEO) Pathologist [facility] Bacteria/Torrie da Culture, Blood No growth after 5 days of incubation. 09/19/2023 9:02 PM MANAGER VIDEO DT Blood (Blood, Portacath) 09/14/2023 8:14 PM MANAGER VIDEO 09/14/2023 8:31 PM MANAGER VIDEO Comment:Specimen Source Site : Blood Aris Mina P.A.-C. LAB MICROBIOLOGY - GENERAL ORDERABLES [facility] [address] [place] [address] * (ABNORMAL) Uric Acid (09/14/2023 8:14 PM MANAGER VIDEO) Pathologist [facility] Uric Acid, S 3.6(L) 3.7 - 8.0 mg/dL 09/14/2023 8:55 PM MANAGER VIDEO DT Blood (Blood, Venous) 09/14/2023 8:14 PM MANAGER VIDEO 09/14/2023 8:41 PM MANAGER VIDEO Aris Mina P.A.-C. LAB BLOOD ADD-ON [facility] [address] [place] [address] * Phosphorus Inorganic (09/14/2023 8:14 PM MANAGER VIDEO) Pathologist [facility] Phosphorus (Inorganic), S 3.8 2.5 - 4.5 mg/dL 09/14/2023 8:55 PM MANAGER VIDEO DT Blood (Blood, Venous) 09/14/2023 8:14 PM MANAGER VIDEO 09/14/2023 8:41 PM MANAGER VIDEO Aris Mina P.A.-C. LAB BLOOD ADD-ON [facility] [address] [place] [address], [facility] DTL [facility] [address] [place] [address] * (ABNORMAL) Basic Metabolic Panel (09/14/2023 8:14 PM MANAGER VIDEO) [facility] Potassium, P 4.0 3.6 - 5.2 mmol/L 09/14/2023 8:53 PM MANAGER VIDEO STMA Sodium, P 136 135 - 145 mmol/L 09/14/2023 8:53 PM MANAGER VIDEO STMA Chloride, P 99 98 - 107 mmol/L 09/14/2023 8:53 PM MANAGER VIDEO STMA Bicarbonate, P 28 22 - 29 mmol/L 09/14/2023 8:53 PM MANAGER VIDEO STMA Anion Gap, P 9 7 - 15 09/14/2023 8:53 PM MANAGER VIDEO STMA BUN (Blood Urea Nitrogen), P 17 8 - 24 mg/dL 09/14/2023 8:53 PM MANAGER VIDEO STMA Creatinine 0.68(L) 0.74 - 1.35 mg/dL 09/14/2023 8:53 PM MANAGER VIDEO STMA Estimated GFR (eGFR) >90 >=60 mL/min/BSA 09/14/2023 8:53 PM MANAGER VIDEO STMA Comment: Estimated GFR calculated using the 2020 CKD_EPI creatinine equation. Calcium, Total, P 8.5(L) 8.8 - 10.2 mg/dL 09/14/2023 8:53 PM MANAGER VIDEO STMA Glucose, P 115 70 - 140 mg/dL 09/14/2023 8:53 PM MANAGER VIDEO STMA Blood (Blood, Venous) 09/14/2023 8:14 PM MANAGER VIDEO 09/14/2023 8:21 PM MANAGER VIDEO Aris Mina P.A.-C. LAB BLOOD ADD-ON [facility] [address] [place] [address], [facility] STMA [facility] [address] [place] [address] * (ABNORMAL) CBC with Differential, Blood (09/14/2023 8:14 PM MANAGER VIDEO) Hemoglobin 8.5(L) 13.2 - 16.6 g/dL 09/14/2023 8:24 PM MANAGER VIDEO STMA Hematocrit 26.8(L) 38.3 - 48.6 % 09/14/2023 8:24 PM MANAGER VIDEO STMA Erythrocytes 2.86(L) 4.35 - 5.65 x10(12)/L 09/14/2023 8:24 PM MANAGER VIDEO STMA MCV 93.7 78.2 - 97.9 fL 09/14/2023 8:24 PM MANAGER VIDEO STMA RBC Distrib Width 18.0(H) 11.8 - 14.5 % 09/14/2023 8:24 PM MANAGER VIDEO STMA Platelet Count 168 135 - 317 x10(9)/L 09/14/2023 8:24 PM MANAGER VIDEO STMA Leukocytes 1.6(L) 3.4 - 9.6 x10(9)/L 09/14/2023 8:24 PM MANAGER VIDEO STMA Neutrophils 0.53(L) 1.56 - 6.45 x10(9)/L 09/14/2023 9:40 PM MANAGER VIDEO DH Comment:Rechecked Lymphocytes 0.53(L) 0.95 - 3.07 x10(9)/L 09/14/2023 9:40 PM MANAGER VIDEO STMA Monocytes 0.39 0.26 - 0.81 x10(9)/L 09/14/2023 9:40 PM MANAGER VIDEO STMA Eosinophils 0.13 0.03 - 0.48 x10(9)/L 09/14/2023 9:40 PM MANAGER VIDEO STMA Basophils 0.05 0.01 - 0.08 x10(9)/L 09/14/2023 9:40 PM MANAGER VIDEO STMA Blood (Blood, Venous) 09/14/2023 8:14 PM MANAGER VIDEO 09/14/2023 8:21 PM MANAGER VIDEO Aris Mina P.A.-C. LAB BLOOD ADD-ON [facility] [address] [place] [address], [facility] STMA [facility] [address] [place] [address] [facility] [address] [place] [address] * ECG 12 Lead (09/14/2023 7:57 PM MANAGER VIDEO) Ventricular Rate ECG/Min [address] Interval 150 ms MUSE QRSD Interval 84 ms MUSE QT Interval 390 ms MUSE QTC Interval 429 ms MUSE P [place] 35 degrees MUSE R [place] 48 degrees MUSE T Wave [place] 15 degrees MUSE 09/14/2023 7:57 PM MANAGER VIDEO 09/14/2023 8:00 PM MANAGER VIDEO Impressions MUSE - 09/14/2023 8:00 PM MANAGER VIDEO Normal sinus rhythm Normal ECG When compared with ECG of 05-AUG-2023 12:31, No significant change was found Reviewed by ISAURO Guevara Narrative Procedure Note Hola Gifford M.D., Ph.D. - 09/14/2023 IMPRESSION: Normal sinus rhythm Normal ECG When compared with ECG of 05-AUG-2023 12:31, No significant change was found Reviewed by ISAURO Guevara Aris Mina P.A.-C. ECG ORDERABLES Performing Organization Address [facility] Co wv Phone Number MUSE NA * (ABNORMAL) Reticulocytes (09/14/2023 7:57 PM MANAGER VIDEO) Pathologist [facility] Reticulocytes, B 2.77(H) 0.60 - 2.71 % 09/15/2023 1:24 AM MANAGER VIDEO DTL Absolute Reticulocyte 78.4 30.4 - 110.9 x10(9)/L 09/15/2023 1:24 AM MANAGER VIDEO DTL Blood (Blood, Venous) 09/14/2023 7:57 PM MANAGER VIDEO 09/15/2023 1:13 AM MANAGER VIDEO Michelle Ac M.D. 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) documented in this encounter Admitting Diagnoses Diagnosis Obstruction Intestinal (HCC) documented in this encounter Administered Medications Inactive Administered Medications - up to 3 most recent administrations Medication Order MAR Action Action Date Dose Rate Site acetaminophen tablet 1,000 mg (TYLENOL) 1,000 mg, small bowel tube, Once, On 09/28/23 at 1315, For 1 dose Given 09/28/2023 1:38 PM MANAGER VIDEO 1,000 mg acetaminophen tablet 650 mg (TYLENOL) 650 mg, small bowel tube, Every 4 hours PRN, headaches, Starting on Genie 09/19/23 at 0103 Given 09/29/2023 12:21 AM MANAGER VIDEO 650 mg Given 09/27/2023 5:15 PM MANAGER VIDEO 650 mg Given 09/19/2023 8:32 PM MANAGER VIDEO 650 mg acetaminophen tablet 650 mg (TYLENOL) 650 mg, small bowel tube, Every 4 hours PRN, headaches, mild pain or score 1-3 of 10, moderate pain or score 4-6 of 10, Starting on 09/29/23 at 0658 Given 09/30/2023 3:24 AM MANAGER VIDEO 650 mg acyclovir 360 mg in NaCl 0.9% IVPB (ZOVIRAX) 360 mg (rounded from 358 mg = 5 mg/kg ? 71.6 kg Adjusted weight), intravenous, at 107 mL/hr, Administer over 60 Minutes, Daily, First dose on 09/16/23 at 1230, Do NOT refrigerate., Drug Monitoring Program: Pharmacist to adjust medication dosing based on indication and drug clearance factors., Indications: Prophylaxis, medical New Bag 09/17/2023 12:37 PM MANAGER VIDEO 360 mg 107 mL/hr New Bag 09/16/2023 1:23 PM MANAGER VIDEO 360 mg 107 mL/hr acyclovir tablet 400 mg (ZOVIRAX) 400 mg, small bowel tube, 2 times daily, First dose on Sat09/17/23 at 2100, Drug Monitoring Program: Pharmacist to adjust medication dosing based on indication and drug clearance factors., Indications: Prophylaxis, medical Given 10/02/2023 8:25 AM MANAGER VIDEO 400 mg Given 10/01/2023 8:49 PM MANAGER VIDEO 400 mg Given 10/01/2023 8:07 AM MANAGER VIDEO 400 mg allopurinoL tablet 300 mg (ZYLOPRIM) 300 mg, small bowel tube, Daily, First dose on Sat09/18/23 at 0900 Given 10/02/2023 8:25 AM MANAGER VIDEO 300 mg Given 10/01/2023 8:07 AM MANAGER VIDEO 300 mg Given 09/30/2023 9:47 AM MANAGER VIDEO 300 mg amitriptyline tablet 12.5 mg (ELAVIL) 12.5 mg, small bowel tube, Bedtime PRN, neuropathy, Starting on Sat09/17/23 at 1702 Given 09/19/2023 8:35 PM CS T 12.5 mg aspirin chewable tablet 81 mg 81 mg, small bowel tube, Daily, First dose on Sat09/18/23 at 0900 Given 10/02/2023 8:24 AM MANAGER VIDEO 81 mg Given 10/01/2023 8:07 AM MANAGER VIDEO 81 mg Given 09/30/2023 9:46 AM MANAGER VIDEO 81 mg calcium gluconate in NaCl (iso osm) IVPB 1 g 1 g, intravenous, at 200 mL/hr, Administer over 15 Minutes, Once, On Sat09/26/23 at 0800, For 1 dose New Bag 09/26/2023 8:11 AM MANAGER VIDEO 1 g 200 mL/hr D5W and Lactated Ringer's infusion 100 mL/hr, intravenous, Continuous, Starting on Sat09/16/23 at 1745, For 24 hours New Bag 09/17/2023 1:51 PM MANAGER VIDEO 100 mL/hr 10 0 mL/hr New Bag 09/17/2023 3:36 AM MANAGER VIDEO 100 mL/hr 100 mL/hr Rate/Dose Verify 09/17/2023 3:00 AM MANAGER VIDEO 100 mL/hr 100 mL/ hr dextrose 50 % injection 12.5 g 12.5 g, intravenous, As needed, low blood sugar, For glucose 51-70 mg/dL, Starting on Sat09/16/23 at 1727, If the patient has intravenous access available, is not able to take oral feeding safely, does not have a functioning gastrointestinal tract or feeding tube, or is NPO, administer D50W intravenously. dextrose 50 % injection 25 g 25 g, intravenous, As needed, low blood sugar, For glucose less than 50 mg/dL, Starting on Sat09/16/23 at 1726, If intravenous access is available, administer D50W intravenously diclofenac sodium 1 % gel 2 g (VOLTAREN) 2 g, topical, 4 times daily, First dose on Sat09/17/23 at 0800, Do not exceed 32 g per day, over all affected joints. Use dosing card to measure product. 2 g = 2.25 inches, 4 gm = 4.5 inches. Rinse dosing card after use and save for each administration. Given 09/24/2023 9:43 PM MANAGER VIDEO 2 g Given 09/24/2023 6:21 PM MANAGER VIDEO 2 g Given 09/19/2023 4:28 PM MANAGER VIDEO 2 g dicyclomine capsule 10 mg (BENTYL) 10 mg, oral, 4 times daily PRN, abdominal pain, Starting on Sat09/30/23 at 1154 enoxaparin injection 40 mg (LOVENOX) 40 mg, subcutaneous, Every 24 hours scheduled, First dose on Sat09/19/23 at 1400 Given 10/02/2023 8:38 AM MANAGER VIDEO 40 mg Right Upper Arm (Lee k) Given 10/01/2023 8:07 AM MANAGER VIDEO 40 mg Le ft Upper Arm (Back) Given 09/30/2023 9:58 AM MANAGER VIDEO 40 mg Ri ght Upper Arm (Back) fluconazole in NaCl 0.9 % (iso osm) IVPB 400 mg (DIFLUCAN) 400 mg, intravenous, at 100 mL/hr, Daily, First dose on Sat09/16/23 at 1400, Drug Monitoring Program: Pharmacist to adjust medication dosing based on indication and drug clearance factors., Indications: Prophylaxis, medical New Bag 09/17/2023 8:06 AM MANAGER VIDEO 400 mg 100 mL/hr New Bag 09/16/2023 4:01 PM MANAGER VIDEO 400 mg 100 mL/hr fluconazole tablet 400 mg (DIFLUCAN) 400 mg, small bowel tube, Daily, First dose on Sat09/18/23 at 1400, Drug Monitoring Program: Pharmacist to adjust medication dosing based on indication and drug clearance factors., Indications: Prophylaxis, medical Given 09/22/2023 2:[address] 400 mg Given 09/21/2023 1:15 PM MANAGER VIDEO 400 mg Given 09/20/2023 1:13 PM MANAGER VIDEO 400 mg furosemide injection 20 mg (LASIX) 20 mg, intravenous, Once, On Genie 09/26/23 at 0745, For 1 dose, Adults: Doses less than 120 mg: IV push over 20 mg/minute. Doses 120 mg or greater: IVPB at 4 mg/minute. Peds/Neonates: Doses less than 120 mg over 0.5 mg/kg/minute. Doses 120 mg or greater: IVPB at 4 mg/minute. Given 09/26/2023 8:11 AM MANAGER VIDEO 20 mg furosemide injection 40 mg (LASIX) 40 mg, intravenous, Once, On Genie 09/26/23 at 1800, For 1 dose, Adults: Doses less than 120 mg: IV push over 20 mg/minute. Doses 120 mg or greater: IVPB at 4 mg/minute. Peds/Neonates: Doses less than 120 mg over 0.5 mg/kg/minute. Doses 120 mg or greater: IVPB at 4 mg/minute. Given 09/26/2023 5:57 PM MANAGER VIDEO 40 mg gadobutrol injection 0.01-30 mL (GADAVIST) 0.01-30 mL, intravenous, Once in imaging, contrast, Starting on Sat09/20/23 at 1731, For 1 dose, Imaging Protocol Orders, Dose per Radiant Medication Guidelines Intrathecal doses greater than 0.25 mL not recommended. Given 09/20/2023 6:13 PM MANAGER VIDEO 8 mL heparin (porcine) injection 5,000 Units 5,000 Units, subcutaneous, Every 8 hours scheduled, First dose on Sat09/15/23 at 2200 Given 09/16/2023 6:19 AM MANAGER VIDEO 5,000 Units Right Upper Arm (Back) Given 09/15/2023 9:45 PM MANAGER VIDEO 5,000 Units L eft Upper Arm (Back) heparin (porcine) injection 5,000 Units 5,000 Units, subcutaneous, Every 8 hours scheduled, First dose (after last reorder) on Sat09/17/23 at 2200 Given 09/19/2023 5:37 AM MANAGER VIDEO 5,000 Units Left Upper Arm (Back ) Given 09/18/2023 9:02 PM MANAGER VIDEO 5,000 Units L eft Upper Arm (Back) Given 09/18/2023 2:04 PM MANAGER VIDEO 5,000 Units L eft Upper Arm (Back) heparin flush 500 Units 500 Units, intra-catheter, During hospitalization, line care, Prior to discharge, Starting on Sat09/20/23 at 1739, For 1 dose, Implanted Vascular Access Device (IVAD) Venous Non-Valved: Following saline flush prior to discharge. Given 09/20/2023 6:25 PM MANAGER VIDEO 500 Units heparin flush 500 Units 500 Units, intra-catheter, Every 28 days, First dose on Sat10/03/23 at 0900, Implanted Vascular Access Device (IVAD) Venous Non-Valved: When no infusion to maintain patency, following saline flush. heparin flush 500 Units 500 Units, intra-catheter, During hospitalization, line care, Prior to discharge, Starting on Sat10/02/23 at 1457, For 1 dose, Implanted Vascular Access Device (IVAD) Venous Non-Valved: Following saline flush prior to discharge. Given 10/02/2023 3:19 PM MANAGER VIDEO 500 Units insulin aspart U-100 injection 0-13 Units (NovoLOG FlexPen) 0-13 Units, subcutaneous, 3 times daily, First dose on Sat09/15/23 at 0800, Insulin Scale: Moderate Correction Scale, 140 - 179: 2 units, 180 - 219: 4 units, 220 - 259: 6 units, 260 - 299: 8 units, 300 - 339: 10 units, 340 - 379: 12 units, 380 - 399: 13 units, Greater than 399: Call service writing Insulin orders Given 10/02/2023 1:07 PM MANAGER VIDEO 2 Units Right Upper Arm (Back) Given 10/01/2023 4:20 PM MANAGER VIDEO 2 Units Le ft Upper Arm (Back) Given 10/01/2023 1:05 PM MANAGER VIDEO 2 Units Le ft Upper Arm (Back) insulin aspart U-100 injection 0-7 Units (NovoLOG FlexPen) 0-7 Units, subcutaneous, Daily at bedtime, First dose on Sat09/20/23 at 2230, Insulin Scale: Modified Bedtime Correction Scale, 220-259: 3 units, 260-299: 4 units, 300-339: 5 units, 340-379: 6 units, 380-399: 7 units, Greater than 399: Call service writing insulin orders Given 09/26/2023 8:20 PM MANAGER VIDEO 3 Units Left Upper Arm (Back ) Given 09/21/2023 8:46 PM MANAGER VIDEO 3 Units Le ft Upper Arm (Back) Given 09/20/2023 10:31 PM MANAGER VIDEO 3 Units L eft Upper Arm (Back) insulin aspart U-100 injection 2 Units (NovoLOG FlexPen) 2 Units, subcutaneous, Daily with breakfast, First dose (after last modification) on Sat09/27/23 at 0800, Hold if patient does not eat. Given 09/29/2023 9:24 AM MANAGER VIDEO 2 Units Right Upper Arm (Lee k) Given 09/28/2023 9:46 AM MANAGER VIDEO 2 Units Ri ght Upper Arm (Back) insulin aspart U-100 injection 2 Units (NovoLOG FlexPen) 2 Units, subcutaneous, Daily with lunch, First dose (after last modification) on Sat09/26/23 at 1200, Hold if patient does not eat. Given 09/29/2023 3:32 PM MANAGER VIDEO 2 Units Left Upper Arm (Back ) Given 09/28/2023 12:59 PM MANAGER VIDEO 2 Units L eft Upper Arm (Back) insulin aspart U-100 injection 2 Units (NovoLOG FlexPen) 2 Units, subcutaneous, Daily with dinner, First dose (after last modification) on Sat09/26/23 at 1700, Hold if patient does not eat. Given 09/29/2023 6:20 PM MANAGER VIDEO 2 Units Left Upper Arm (Back ) Given 09/28/2023 6:23 PM MANAGER VIDEO 2 Units Ri ght Upper Arm (Back) Given 09/27/2023 9:37 PM MANAGER VIDEO 2 Units Ri ght Upper Arm (Back) insulin aspart U-100 injection 3 Units (NovoLOG FlexPen) 3 Units, subcutaneous, Daily with breakfast, First dose on Sat09/25/23 at 0800 Given 09/26/2023 9:34 AM MANAGER VIDEO 3 Units Left Upper Arm (Back ) Given 09/25/2023 8:23 AM MANAGER VIDEO 3 Units Le ft Upper Arm (Back) insulin aspart U-100 injection 3 Units (NovoLOG FlexPen) 3 Units, subcutaneous, Daily with lunch, First dose on Sat09/25/23 at 1200 Given 09/25/2023 12:02 PM MANAGER VIDEO 3 Units Right Upper Arm (Lee k) insulin aspart U-100 injection 3 Units (NovoLOG FlexPen) 3 Units, subcutaneous, Daily with dinner, First dose on Sat09/24/23 at 1700 Given 09/25/2023 5:53 PM MANAGER VIDEO 3 Units Left Upper Arm (Back ) Given 09/24/2023 6:17 PM MANAGER VIDEO 3 Units Le ft Upper Arm (Back) insulin glargine injection 3 Units 3 Units, subcutaneous, Daily at bedtime, First dose (after last modification) on Sat09/28/23 at 2100 Given 10/01/2023 8:50 PM MANAGER VIDEO 3 Units Right Upper Arm (Lee k) Given 09/30/2023 8:47 PM MANAGER VIDEO 3 Units Le ft Upper Arm (Back) Given 09/29/2023 9:10 PM MANAGER VIDEO 3 Units Le ft Upper Arm (Back) insulin glargine injection 4 Units 4 Units, subcutaneous, Daily at bedtime, First dose (after last modification) on Sat09/26/23 at 2100 Given 09/27/2023 9:37 PM MANAGER VIDEO 4 Units Left Upper Arm (Back ) Given 09/26/2023 8:20 PM MANAGER VIDEO 4 Units Ri ght Upper Arm (Back) insulin glargine injection 6 Units 6 Units, subcutaneous, Daily at bedtime, First dose on Sat09/24/23 at 2100 Given 09/25/2023 8:15 PM MANAGER VIDEO 6 Units Left Upper Arm (Back ) Given 09/24/2023 9:43 PM MANAGER VIDEO 6 Units Le ft Upper Arm (Back) iohexoL 300 mg iodine/mL solution 1-200 mL (OMNIPAQUE) 1-200 mL, intravenous, Once in imaging, contrast, Starting on Rust 09/14/23 at 2058, For 1 dose, Imaging Protocol Orders, Dose per Radiant Medication Guidelines Given 09/14/2023 9:12 PM MANAGER VIDEO 140 mL iohexoL 350 mg iodine/mL solution 1-200 mL (OMNIPAQUE) 1-200 mL, intravenous, Once in imaging, contrast, Starting on Genie 09/19/23 at 1600, For 1 dose, Imaging Protocol Orders, Dose per Radiant Medication Guidelines Given 09/19/2023 4:03 PM MANAGER VIDEO 100 mL Lactated Ringer's bolus 500 mL 500 mL, intravenous, at 250 mL/hr, Administer over 2 Hours, Once, On Genie 09/26/23 at 0900, For 1 dose New Bag 09/26/2023 10:26 AM MANAGER VIDEO 500 mL 250 mL/hr Lactated Ringer's bolus 500 mL 500 mL, intravenous, at 500 mL/hr, Administer over 1 Hours, Once, On Sat09/27/23 at 0845, For 1 dose New Bag 09/27/2023 9:03 AM MANAGER VIDEO 500 mL 500 mL/hr Lactated Ringer's 100 mL/hr, intravenous, Continuous, Starting on Sat09/15/23 at 0100, For 1 day 17 hours Rate/Dose Change 09/16/2023 9:04 AM MANAGER VIDEO 100 mL/hr 100 mL/hr New Bag 09/15/2023 3:24 PM MANAGER VIDEO 50 mL/hr 50 mL/hr Rate/Dose Change 09/15/2023 3:23 PM MANAGER VIDEO 50 mL/hr 50 mL/h r Lactated Ringer's 20 mL/hr, intravenous, Continuous, Starting on Sat09/27/23 at 1245, PACU & Post-Op Rate/Dose Verify 09/27/2023 4:02 PM MANAGER VIDEO 20 mL/hr 20 mL/hr New Bag 09/27/2023 2:57 PM MANAGER VIDEO 20 mL/hr 20 mL/hr levoFLOXacin in D5W IVPB 500 mg (LEVAQUIN) 500 mg, intravenous, at 100 mL/hr, Administer over 60 Minutes, Daily, First dose on Sat09/16/23 at 1200, Drug Monitoring Program: Pharmacist to adjust medication dosing based on indication and drug clearance factors., Indications: Prophylaxis, medical New Bag 09/17/2023 8:48 AM MANAGER VIDEO 500 mg 100 mL/hr New Bag 09/16/2023 3:02 PM MANAGER VIDEO 500 mg 100 mL/hr levoFLOXacin tablet 500 mg (LEVAQUIN) 500 mg, small bowel tube, Daily before breakfast, First dose on Sat09/18/23 at 1200, Take 2 hours before or 6 hours after antacids containing magnesium or aluminum, sucralfate, didanosine, polymeric phosphate binders, or products containing calcium, iron, or zinc., Drug Monitoring Program: Pharmacist to adjust medication dosing based on indication and drug clearance factors., Indications: Prophylaxis, medical Given 09/22/2023 11:40 AM MANAGER VIDEO 500 mg Given 09/21/2023 1:15 PM MANAGER VIDEO 500 mg Given 09/20/2023 1:13 PM MANAGER VIDEO 500 mg levothyroxine tablet 112 mcg (SYNTHROID, LEVOTHROID) 112 mcg, small bowel tube, User Specified (Once per day on Saturday), First dose on Sat09/19/23 at 0600, Administer before breakfast Given 10/01/2023 6:55 AM MANAGER VIDEO 112 mcg Given 09/29/2023 5:32 AM MANAGER VIDEO 112 mcg Given 09/26/2023 5:19 AM MANAGER VIDEO 112 mcg levothyroxine tablet 224 mcg (SYNTHROID, LEVOTHROID) 224 mcg, small bowel tube, User Specified (Once per day on Saturday), First dose on Sat09/18/23 at 0600, Administer prior to breakfast. Given 10/02/2023 5:34 AM MANAGER VIDEO 224 mcg Given 09/30/2023 6:52 AM MANAGER VIDEO 224 mcg Given 09/28/2023 6:46 AM MANAGER VIDEO 224 mcg lidocaine 10 mg/mL (1 %) injection 2 mL (XYLOCAINE) 2 mL, injection, One-Time Injection, Starting on Sat09/20/23 at 1237, For 1 dose Given 09/20/2023 12:37 PM MANAGER VIDEO 2 mL lidocaine 5 % 1 patch (LIDODERM) 1 patch, transdermal, Administer over 12 Hours, Daily, First dose on Sat09/19/23 at 0900, Remove after 12 hours. Medication Applied 09/19/2023 8:08 AM MANAGER VIDEO 1 patch Other lidocaine 5 % 1 patch (LIDODERM) 1 patch, transdermal, Administer over 12 Hours, Daily, First dose on Sat09/28/23 at 0900, Remove after 12 hours. Abdomen Medication Applied 09/28/2023 8:45 AM MANAGER VIDEO 1 patch Left Lower Abdomen lidocaine 5 % 1 patch (LIDODERM) 1 patch, transdermal, Administer over 12 Hours, Every 24 hours, First dose on Sat09/29/23 at 1900, Remove after 12 hours. Medication Applied 09/30/2023 6:42 PM MANAGER VIDEO 1 patch Left Lower Abdomen Medication Applied 09/29/2023 7:34 PM MANAGER VIDEO 1 patch Left Lower Abdomen magnesium sulfate in water IVPB 2 g 2 g, intravenous, at 25 mL/hr, Administer over 120 Minutes, Once, On Sat09/18/23 at 0645, For 1 dose, Over 2 hours. New Bag 09/18/2023 7:49 AM MANAGER VIDEO 2 g 25 mL/hr magnesium sulfate in water IVPB 2 g 2 g, intravenous, at 25 mL/hr, Administer over 120 Minutes, Once, On Sat09/28/23 at 0915, For 1 dose New Bag 09/28/2023 8:45 AM MANAGER VIDEO 2 g 25 mL/hr magnesium sulfate in water IVPB 2 g 2 g, intravenous, at 25 mL/hr, Administer over 120 Minutes, Once, On Sat10/01/23 at 0700, For 1 dose, Over 2 hours. New Bag 10/01/2023 6:55 AM MANAGER VIDEO 2 g 25 mL/hr magnesium sulfate in water IVPB 4 g 4 g, intravenous, at 25 mL/hr, Administer over 240 Minutes, Once, On Sat09/18/23 at 1830, For 1 dose, Over 4 hours. New Bag 09/18/2023 6:52 PM MANAGER VIDEO 4 g 25 mL/hr methocarbamoL tablet 500 mg (ROBAXIN) 500 mg, small bowel tube, Once, On 09/28/23 at 1315, For 1 dose Given 09/28/2023 1:38 PM MANAGER VIDEO 500 mg methocarbamoL tablet 500 mg (ROBAXIN) 500 mg, oral, 4 times daily PRN, muscle spasms, abdominal pain, Starting on 09/28/23 at 1454, Please page service before giving to assess physical exam Given 09/30/2023 7:16 AM MANAGER VIDEO 500 mg Given 09/29/2023 3:32 PM MANAGER VIDEO 500 mg Given 09/28/2023 6:23 PM MANAGER VIDEO 500 mg methyl salicylate-menthol 15-10 % cream 1 Application 1 Application, topical, 3 times daily, First dose on Sat09/29/23 at 0900, Abdomen (pain) Given 10/02/2023 1:08 PM MANAGER VIDEO 1 Application Given 10/01/2023 8:49 PM MANAGER VIDEO 1 Application Given 10/01/2023 1:06 PM MANAGER VIDEO 1 Application NaCl 0.9 % bolus 1,000 mL 1,000 mL, intravenous, at 1,000 mL/hr, Administer over 1 Hours, Once, On 09/14/23 at 1951, For 1 dose New Bag 09/14/2023 8:27 PM MANAGER VIDEO 1,000 mL 1000 mL/hr NaCl 0.9 % bolus 250 mL - After acyclovir 250 mL, intravenous, at 500 mL/hr, Administer over 30 Minutes, Every 24 hours, First dose on Sat09/15/23 at 1300, Administer after acyclovir dose New Bag 09/17/2023 12:38 PM MANAGER VIDEO 250 mL 500 mL/hr New Bag 09/16/2023 2:26 PM MANAGER VIDEO 250 mL 500 mL/hr NaCl 0.9 % bolus 250 mL - Prior to acyclovir 250 mL, intravenous, at 500 mL/hr, Administer over 30 Minutes, Every 24 hours, First dose on Sat09/15/23 at 1130, Administer 30 minutes before acyclovir dose New Bag 09/17/2023 12:00 PM MANAGER VIDEO 250 mL 500 mL/h r New Bag 09/16/2023 12:47 PM MANAGER VIDEO 250 mL 500 mL/hr NaCl 0.9 % bolus 500 mL 500 mL, intravenous, at 500 mL/hr, Administer over 1 Hours, Once, On Genie 09/26/23 at 1715, For 1 dose New Bag 09/26/2023 5:26 PM MANAGER VIDEO 500 mL 500 mL/hr polyethylene glycol powder packet 17 g (MIRALAX) 17 g, oral, 2 times daily PRN, constipation, Starting on Sat09/29/23 at 1947, Dissolve in 240 mLs (8 ounces) of water prior to giving. Avoid mixing with starch-based thickened liquids. Given 09/29/2023 9:01 PM MANAGER VIDEO 17 g potassium bicarb-citric acid disintegrating tablet 20 mEq (EFFER-K) 20 mEq, small bowel tube, Once, On Sat09/18/23 at 0645, For 1 dose, For K 3-3.4 mEq/L - give total of 20 mEq Give via small bowel tube if available and patient unable to tolerate oral Dissolve per information technology consultant recommendations. Do NOT chew or swallow tablet., Monitor the following for replacement: Potassium, Replace Potassium per: Standard Schedule Given 09/18/2023 6:36 AM MANAGER VIDEO 20 mEq potassium chloride IVPB 10 mEq 10 mEq, intravenous, at 100 mL/hr, Administer over 60 Minutes, Every 1 hour, First dose on Sat09/16/23 at 1130, For 2 doses, Peripheral Line: 10 mEq per bag over 1 hour each. New Bag 09/16/2023 1:03 PM MANAGER VIDEO 10 mEq 100 mL/hr potassium chloride IVPB 10 mEq 10 mEq, intravenous, at 100 mL/hr, Administer over 60 Minutes, Every 1 hour, First dose (after last reorder) on 09/16/23 at 1430, For 1 dose, Peripheral Line: 10 mEq per bag over 1 hour each. Previous dose after 1 of 2 doses. New Bag 09/16/2023 2:20 PM MANAGER VIDEO 10 mEq 100 mL/hr sennosides-docusate sodium 8.6-50 mg per tablet 1 tablet (SENOKOT-S) 1 tablet, oral, Daily PRN, constipation, Starting on 09/29/23 at 1947 Given 09/29/2023 9:01 PM MANAGER VIDEO 1 tablet simvastatin tablet 20 mg (ZOCOR) 20 mg, small bowel tube, Daily at bedtime, First dose on Sat09/17/23 at 2100 Given 10/01/2023 8:49 PM MANAGER VIDEO 20 mg Given 09/30/2023 8:44 PM MANAGER VIDEO 20 mg Given 09/29/2023 9:01 PM MANAGER VIDEO 20 mg sodium chloride (PF) 0.9 % injection 1-100 mL 1-100 mL, intravenous, Once, On 09/14/23 at 2059, For 1 dose, Imaging Protocol Orders Given 09/14/2023 9:12 PM MANAGER VIDEO 50 mL sodium chloride (PF) 0.9 % injection 1-100 mL 1-100 mL, intravenous, Once, On Genie 09/19/23 at 1630, For 1 dose, Imaging Protocol Orders Given 09/19/2023 4:03 PM MANAGER VIDEO 35 mL sodium chloride 0.9 % injection 10 mL 10 mL, intravenous, As needed, line care, Implanted Vascular Access Device (IVAD) Venous Non-Valved, Starting on Sat09/20/23 at 1739, Prior to and following infusion, between multiple consecutive infusions, and prior to blood sampling, Given 09/20/2023 6:24 PM MANAGER VIDEO 10 mL Given 09/20/2023 5:40 PM MANAGER VIDEO 10 mL sodium chloride 0.9 % injection 10 mL 10 mL, intravenous, During hospitalization, line care, Prior to discharge, Starting on Sat09/20/23 at 1739, For 1 dose, Implanted Vascular Access Device (IVAD) Venous Non-Valved: Followed by heparin flush prior to discharge. Given 09/26/2023 9:39 AM MANAGER VIDEO 10 mL sodium chloride 0.9 % injection 10 mL 10 mL, intravenous, Every 28 days, First dose on Genie 10/03/23 at 0900, Implanted Vascular Access Device (IVAD) Venous Non-Valved: When no infusion to maintain patency, followed by heparin flush. sodium chloride 0.9 % injection 10 mL 10 mL, intravenous, During hospitalization, line care, Prior to discharge, Starting on 10/02/23 at 1457, For 1 dose, Implanted Vascular Access Device (IVAD) Venous Non-Valved: Followed by heparin flush prior to discharge. sodium chloride 0.9 % injection 2-10 mL 2-10 mL, intravenous, As needed, line care, Starting on 09/14/23 at 1949 Given 10/02/2023 3:19 PM MANAGER VIDEO 10 mL Given 09/20/2023 7:57 AM MANAGER VIDEO 10 mL sodium zirconium cyclosilicate 10 gram packet 10 g (LOKELMA) 10 g, oral, Once, On 09/28/23 at 0915, For 1 dose, Empty packet into glass containing at least 3 tablespoons water, stir well and drink immediately. If powder remains in glass, add water, stir and drink immediately. Repeat if necessary., Restriction Criteria (Pharmacy will review and approve if criteria met): Single dose for K > 6 Given 09/28/2023 8:50 AM MANAGER VIDEO 10 g tamsulosin 24 hr capsule 0.4 mg (FLOMAX) 0.4 mg, oral, Daily, First dose on 09/23/23 at 1230, Swallow whole. Do NOT crush, chew or open capsule. Given 10/02/2023 8:24 AM MANAGER VIDEO 0.4 mg Given 10/01/2023 8:07 AM MANAGER VIDEO 0.4 mg Given 09/30/2023 9:46 AM MANAGER VIDEO 0.4 mg triamcinolone acetonide injection 80 mg (KENALOG-40) 80 mg, intra-articular, One-Time Injection, Starting on Sat09/20/23 at 1237, For 1 dose Given 09/20/2023 12:37 PM MANAGER VIDEO 80 mg documented in this encounter Active and Recently Administered Medications Times are shown in MANAGER VIDEO. Scheduled Medication Order 09/30/2023 10/01/2023 10/02/2023 acyclovir tablet 400 mg (ZOVIRAX) 400 mg, small bowel tube, 2 times daily, First dose on Sat09/17/23 at 2100, Drug Monitoring Program: Pharmacist to adjust medication dosing based on indication and drug clearance factors., Indications: Prophylaxis, medical 0946 (Given - Provider: Yanira Boggs R.N.)204 (Given - Provider: Yulisa Zhang R.N.) 0807 (Given - Provider: Carley Devi R.N.)204 (Given - Provider: Yulisa Zhang R.N.) 0825 (Given - Provider: Yanira Boggs R.N.) allopurinoL tablet 300 mg (ZYLOPRIM) 300 mg, small bowel tube, Daily, First dose on Sat09/18/23 at 0900 0947 (Given - Provider: Yanira Boggs R.N.) 0807 (Given - Provider: Carley Devi R.N.) 0825 (Given - Provider: Yanira Boggs R.N.) aspirin chewable tablet 81 mg 81 mg, small bowel tube, Daily, First dose on Sat09/18/23 at 0900 0946 (Given - Provider: Yanira Boggs R.N.) 0807 (Given - Provider: Carley Devi R.N.) 0824 (Given - Provider: Yanira Boggs R.N.) enoxaparin injection 40 mg (LOVENOX) 40 mg, subcutaneous, Every 24 hours scheduled, First dose on Sat09/19/23 at 1400 0958 (Given - Provider: Yanira Boggs R.N.) 0807 (Given - Provider: Carley Devi R.N.) 0838 (Given - Provider: Yanira Boggs R.N.) heparin flush 500 Units 500 Units, intra-catheter, Every 28 days, First dose on Sat10/03/23 at 0900, Implanted Vascular Access Device (IVAD) Venous Non-Valved: When no infusion to maintain patency, following saline flush. insulin aspart U-100 injection 0-13 Units (NovoLOG FlexPen) 0-13 Units, subcutaneous, 3 times daily, First dose on Sat09/15/23 at 0800, Insulin Scale: Moderate Correction Scale, 140 - 179: 2 units, 180 - 219: 4 units, 220 - 259: 6 units, 260 - 299: 8 units, 300 - 339: 10 units, 340 - 379: 12 units, 380 - 399: 13 units, Greater than 399: Call service writing Insulin orders 0951 (Not Given - Provider: Yanira Boggs R.N. - Reason: Order parameters not met)1236 (Not Given - Provider: Yanira Boggs R.N. - Reason: Patient/family refused)1738 (Not Given - Provider: Yanira Boggs R.N. - Reason: Order parameters not met) 0824 (Given - Provider: Carley Devi R.N.)1305 (Given - Provider: Carley Devi R.N.)1620 (Given - Provider: Sj MartinezNJohanna) 0838 (Not Given - Provider: Yanira Boggs R.N. - Reason: Order parameters not met)1307 (Given - Provider: Yanira Boggs R.N.)1700 (Due) insulin aspart U-100 injection 0-7 Units (NovoLOG FlexPen) 0-7 Units, subcutaneous, Daily at bedtime, First dose on Sat09/20/23 at 2230, Insulin Scale: Modified Bedtime Correction Scale, 220-259: 3 units, 260-299: 4 units, 300-339: 5 units, 340-379: 6 units, 380-399: 7 units, Greater than 399: Call service writing insulin orders 2045 (Not Given - Provider: Yulisa Zhang RDanuta - Reason: Order parameters not met - Comment: BG 147) 2052 (Not Given - Provider: Yulisa Zhang RJohannaN. - Reason: Order parameters not met - Comment: BG 142) insulin glargine injection 3 Units 3 Units, subcutaneous, Daily at bedtime, First dose (after last modification) on Sat09/28/23 at 2100 2046 (Given - Provider: Yulisa Zhang RGreg.) 2049 (Given - Provider: Yulisa Zhang RJohannaN.) levothyroxine tablet 112 mcg (SYNTHROID, LEVOTHROID) 112 mcg, small bowel tube, User Specified (Once per day on Saturday), First dose on Sat09/19/23 at 0600, Administer before breakfast 0655 (Given - Provider: Yulisa Zhang R.N.) levothyroxine tablet 224 mcg (SYNTHROID, LEVOTHROID) 224 mcg, small bowel tube, User Specified (Once per day on Saturday), First dose on Sat09/18/23 at 0600, Administer prior to breakfast. 0652 (Given - Provider: Alma Gorman R.N.) 0534 (Given - Provider: Yulisa Zhang R.N.) lidocaine 5 % 1 patch (LIDODERM) 1 patch, transdermal, Administer over 12 Hours, Every 24 hours, First dose on Sat09/29/23 at 1900, Remove after 12 hours. 0653 (Medication Removed - Provider: Alma Gorman R.N.)1842 (Medication Applied - Provider: Yanira Boggs R.N.) 0656 (Medication Removed - Provider: Yulisa Zhang R.N.)185 (Not Given - Provider: Lindsay Michaud R.N. - Reason: Patient/family refused) magnesium sulfate in water IVPB 2 g (COMPLETED) 2 g, intravenous, at 25 mL/hr, Administer over 120 Minutes, Once, On Sat10/01/23 at 0700, For 1 dose, Over 2 hours. 0655 (New Bag - Provider: Yulisa Zhang R.N.) methyl salicylate-menthol 15-10 % cream 1 Application 1 Application, topical, 3 times daily, First dose on Sat09/29/23 at 0900, Abdomen (pain) 0947 (Given - Provider: Yanira Boggs R.N.)1527 (Given - Provider: Yanira Boggs R.N.)204 (Given - Provider: Yulisa Zhang R.N.) 0816 (Given - Provider: Carley Devi R.N.)1306 (Given - Provider: Carley Devi R.N.)204 (Given - Provider: Yulisa Zhang R.N.) 0825 (Not Given - Provider: Yanira Boggs R.N. - Reason: Patient/family refused)1308 (Given - Provider: Yanira Boggs R.N.) simvastatin tablet 20 mg (ZOCOR) 20 mg, small bowel tube, Daily at bedtime, First dose on Sat09/17/23 at 2100 2044 (Given - Provider: Yulisa Zhang R.N.) 204 (Given - Provider: Yulisa Zhang R.N.) sodium chloride (PF) 0.9 % injection 1-100 mL 1-100 mL, intravenous, Once, On Sat09/20/23 at 1800, For 1 dose, Imaging Protocol Orders sodium chloride 0.9 % injection 10 mL 10 mL, intravenous, Every 28 days, First dose on Genie 10/03/23 at 0900, Implanted Vascular Access Device (IVAD) Venous Non-Valved: When no infusion to maintain patency, followed by heparin flush. sodium zirconium cyclosilicate 5 gram packet 5 g (LOKELMA) 5 g, oral, Once, On Sat09/27/23 at 1545, For 1 dose, Empty packet into glass containing at least 3 tablespoons water, stir well and drink immediately. If powder remains in glass, add water, stir and drink immediately. Repeat if necessary., Restriction Criteria (Pharmacy will review and approve if criteria met): Single dose for K > 6 tamsulosin 24 hr capsule 0.4 mg (FLOMAX) 0.4 mg, oral, Daily, First dose on 09/23/23 at 1230, Swallow whole. Do NOT crush, chew or open capsule. 0946 (Given - Provider: Yanira Boggs R.N.) 0807 (Given - Provider: Carley Devi R.N.) 0824 (Given - Provider: Yanira Boggs R.N.) PRN Medication Order 09/30/2023 10/01/2023 10/02/2023 acetaminophen tablet 650 mg (TYLENOL) 650 mg, small bowel tube, Every 4 hours PRN, headaches, mild pain or score 1-3 of 10, moderate pain or score 4-6 of 10, Starting on 09/29/23 at 0658 0324 (Given - Provider: Roeun R Sherif, R.N.) amitriptyline tablet 12.5 mg (ELAVIL) 12.5 mg, small bowel tube, Bedtime PRN, neuropathy, Starting on Tu09/17/23 at 1702 dextrose 50 % injection 12.5 g 12.5 g, intravenous, As needed, low blood sugar, For glucose 51-70 mg/dL, Starting on Sat09/16/23 at 1727, If the patient has intravenous access available, is not able to take oral feeding safely, does not have a functioning gastrointestinal tract or feeding tube, or is NPO, administer D50W intravenously. dextrose 50 % injection 25 g 25 g, intravenous, As needed, low blood sugar, For glucose less than 50 mg/dL, Starting on Sat09/16/23 at 1726, If intravenous access is available, administer D50W intravenously dicyclomine capsule 10 mg (BENTYL) 10 mg, oral, 4 times daily PRN, abdominal pain, Starting on Sat09/30/23 at 1154 heparin flush 500 Units (COMPLETED) 500 Units, intra-catheter, During hospitalization, line care, Prior to discharge, Starting on Sat10/02/23 at 1457, For 1 dose, Implanted Vascular Access Device (IVAD) Venous Non-Valved: Following saline flush prior to discharge. 1519 (Given - Provider: Julia Segovia R.N.) methocarbamoL tablet 500 mg (ROBAXIN) 500 mg, oral, 4 times daily PRN, muscle spasms, abdominal pain, Starting on 09/28/23 at 1454, Please page service before giving to assess physical exam 0716 (Given - Provider: Yanira Boggs R.N.) ondansetron (PF) injection 4 mg (ZOFRAN) 4 mg, intravenous, Every 6 hours PRN, nausea, vomiting, Starting on 09/15/23 at 0041 polyethylene glycol powder packet 17 g (MIRALAX) 17 g, oral, 2 times daily PRN, constipation, Starting on 09/29/23 at 1947, Dissolve in 240 mLs (8 ounces) of water prior to giving. Avoid mixing with starch-based thickened liquids. sennosides-docusate sodium 8.6-50 mg per tablet 1 tablet (SENOKOT-S) 1 tablet, oral, Daily PRN, constipation, Starting on 09/29/23 at 1947 sodium chloride 0.9 % injection 10 mL 10 mL, intravenous, As needed, line care, Implanted Vascular Access Device (IVAD) Venous Non-Valved, Starting on Sat09/20/23 at 1739, Prior to and following infusion, between multiple consecutive infusions, and prior to blood sampling, sodium chloride 0.9 % injection 10 mL 10 mL, intravenous, During hospitalization, line care, Prior to discharge, Starting on Sat10/02/23 at 1457, For 1 dose, Implanted Vascular Access Device (IVAD) Venous Non-Valved: Followed by heparin flush prior to discharge. sodium chloride 0.9 % injection 2-10 mL(Linked Group 1) 2-10 mL, intravenous, As needed, line care, Starting on 09/14/23 at 1949 1519 (Given - Provider: Julia Segovia R.N.) Linked Groups Order Group 1: Place peripheral IV: No upper extremity site restrictions (COMPLETED) Upper extremity site restriction: No upper extremity site restrictions, Quantity of PIVs requested: One, STAT, Once, On 09/14/23 at 1950, For 1 occurrence And sodium chloride 0.9 % injection 2-10 mLJump to med 2-10 mL, intravenous, As needed, line care, Starting on 09/14/23 at 1949 documented in this encounter Additional Health Concerns Infection Onset Date Last Indicated Resolved Time Protective Environment 05/17/2023 05/17/2023 COVID19 Pending 09/14/2023 09/14/2023 09/14/2023 8 :59 PM MANAGER VIDEO documented as of this encounter Care Teams Stud Master/Mistress Relationship Specialty Start Date End Date Elsewhere, Pcp PCP - General Internal Medicine 09/14/23 documented as of this encounter
--- OUTSIDE RECORDS SUMMARY | 2023-10-05 12:55 | XMS_ITS | Encounter Summary ---
Author Name Unknown Organization [facility] Address [address] [place] [address] Care Team Providers Care Sexual Assault Counselor Name Role Phone Elsewhere, Pcp Primary Care Provider Unavailabl e Encounter Details Date Type Department Care Team (Latest Contact Info) Description 09/27/2023 11:25 AM CANCER GENETIC COUNSELOR Ancillary Procedure Department of Gastroenterology Social History Tobacco Use Types Packs/Day Years Used Date Smoking Tobacco: Former Cigarettes 1 22 Q uit: 02/07/1989 Passive Smoke Exposure: Never Smokeless Tobacco: Former Snuff, Chew Quit: 04/18/2023 Alcohol Use Standard Drinks/Week Comments Not Currently 3 (1 standard drink = 0.6 oz pur e alcohol) [facility] Utilities Answer Date Recorded In the past 12 months has e [employer], gas, oil, or water Ditto threatened to shut off services in your [...] often do you attend chur ch or jew services? Never 01/10/2023 Do you belong to any clubs o r organizations such as uatsdin groups, unions, fraternal or athletic groups, or [...] Answer Date Recorded PHQ-2 Score 0 04/25/2020 [facility] - Occupational Stress [...] your living situation today? I have a [facility] place to live 09/15/2023 Education [...] (Latest Contact Info) Description 10/06/2023 9:04 AM CANCER GENETIC COUNSELOR - 10/06/2023 11:24 AM CANCER GENETIC COUNSELOR Surgery [facility] MAIN OR [address] [place] [phone] Cameron Saenz M.D. [address] [place] [phone] ABDOMINAL EXPLORATION, REMOVAL ABTHERA, POSSBLE BOWEL RESECTION, PROCEED INDICATED 10/11/2023 7:00 AM CANCER GENETIC COUNSELOR Appointment Department of Laboratory Medicine and Pathology, [facility], in [place], [place] [address] [place] [phone] Arti Epstein M.B.B.S. [address] [place] [phone] 10/11/2023 9:00 AM CANCER GENETIC COUNSELOR Office Visit Division of Hematology in [place], [place] [address] [place] [phone] Arti Epstein M.B.B.S. [address] [place] [phone] 10/11/2023 10:00 AM CANCER GENETIC COUNSELOR Infusion Department of Oncology in [place], [place] [address] [place] [phone] Bev Gifford APRN, C.N.P., M.S.N. [address] [place] [phone] 11/19/2023 10:00 AM CDT Office Visit Division of Endocrinology in [place], [place] [address] [place] [phone] West Mendoza APRN, C.N.P., M.S. [address] [place] [phone] 11/19/2023 2:30 PM CDT Comprehensive Visit Division of Hepatobiliary and Pancreas Surgery in [address] [phone] Wesley Hamilton M.D. [address] [place] [phone] Scheduled Procedures Name Priority Associated Diagnoses Date/Ti me LAPAROTOMY - ABDOMINAL WASHOUT Ischemia Intestinal With Stricture (HCC) 10/06/2023 9:04 AM CANCER GENETIC COUNSELOR documented as of this encounter Procedures Procedure Name Priority Date/Time Associated Diagnosis Comments GASTROENTEROLOGY IMAGE EXAM Routine 09/27/2023 11:25 AM CANCER GENETIC COUNSELOR documented in this encounter Results * Upper GI endoscopy-Gastroenterology Image Exam (09/27/2023 11:25 AM CANCER GENETIC COUNSELOR) 09/27/2023 11:2 2 AM CANCER GENETIC COUNSELOR Narrative IIMS - 09/27/2023 1:11 PM CANCER GENETIC COUNSELOR This order has been created and auto-finalized to support the import of images acquired without order. The clinical documentation to support these images can be found on the encounter that produced images. Provider Not In System IMG NON RAD IMAGI NG PROCEDURES IIMS NA documented in this encounter Visit Diagnoses Not on filedocumented in this encounter Additional Health Concerns Infection Onset Date Last Indicated Resolved Time Protective Environment 05/17/2023 05/17/2023 documented as of this encounter Care Teams Sexual Assault Counselor Relationship Specialty Start Date End Date Elsewhere, Pcp PCP - General Internal Medicine 09/14/23 documented as of this encounter
--- OUTSIDE RECORDS SUMMARY | 2023-10-05 12:55 | XMS_ITS | Encounter Summary ---
Author Name Unknown Organization [facility] Address [address] [place] [address] Care Team Providers Care Nail Tech Name Role Phone Elsewhere, Pcp Primary Care Provider Unavailabl e Reason for Visit * Reason Comments Scheduling Encounter Details Date Type Department Care Team ([facility] st Contact Info) Description 09/17/2023 Documentation Division of Endocrinology in [place], [place] [address] [place] [phone] Micaela Reich, RJohannaN. Scheduling Social History Tobacco Use Types Packs/Day Years Used Date Smoking Tobacco: Former Cigarettes 1 22 Q uit: 02/07/1989 Passive Smoke Exposure: Never Smokeless Tobacco: Former Snuff, Chew Quit: 04/18/2023 Alcohol Use Standard Drinks/Week Comments Not Currently 3 (1 standard drink = 0.6 oz pur e alcohol) [facility] Utilities Answer Date Recorded In the past 12 months has [employer], oil, or water [employer] threatened to shut off services in your [...] often do you attend chur ch or mandaen services? Never 01/10/2023 Do you belong to any clubs o r organizations such as adventism groups, unions, fraternal or athletic groups, or [...] your living situation today? I have a [facility] place to live 09/15/2023 Education Answer [...] as of this encounter Progress Notes * Micaela Reich RJohannaN. - 09/17/2023 3:58 PM CST Order in for HEN consult. 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 He currently has a 16 japanese Nasojejunal tube with gastric decompression port placed 09/17/22 in GI. They will need to see the HEN dietitian and provider. Requesting appointments in about 2 weeks. ROL OPERATOR documented in this encounter Plan of Treatment Upcoming Encounters Date Type Department Care Team (Latest Contact Info) Description 10/06/2023 9:04 AM CONTROL OPERATOR - 10/06/2023 11:24 AM CONTROL OPERATOR Surgery RST ROMB MAIN OR [address] [place] [phone] Cameron Saenz M.D. [address] [place] [phone] ABDOMINAL EXPLORATION, REMOVAL ABTHERA, POSSBLE BOWEL RESECTION, PROCEED INDICATED 10/11/2023 7:00 AM CONTROL OPERATOR Appointment Department of Laboratory Medicine and Pathology, [facility], in [place], [place] [address] [place] [phone] Arti Epstein M.B.B.S. [address] [place] [phone] 10/11/2023 9:00 AM CONTROL OPERATOR Office Visit Division of Hematology in [address] [phone] Arti Epstein M.B.B.S. [address] [place] [phone] 10/11/2023 10:00 AM CONTROL OPERATOR Infusion Department of Oncology in [address] [phone] Bev Gifford APRN, C.N.P., M.S.N. [address] [place] [phone] 11/19/2023 10:00 AM CDT Office Visit Division of Endocrinology in [address] [phone] West Mendoza APRN, C.N.Ash., M.S. [address] [place] [phone] 11/19/2023 2:30 PM CDT Comprehensive Visit Division of Hepatobiliary and Pancreas Surgery in [place], [place] [address] [place] [phone] Wesley Hamilton M.D. [address] [place] [address] Scheduled Procedures Name Priority Associated Diagnoses Date/Ti me LAPAROTOMY - ABDOMINAL WASHOUT Ischemia Intestinal With Stricture (HCC) 10/06/2023 9:04 AM CONTROL OPERATOR documented as of this encounter Visit Diagnoses Not on filedocumented in this encounter Additional Health Concerns Infection Onset Date Last Indicated Resolved Time Protective Environment 05/17/2023 05/17/2023 documented as of this encounter Care Teams Nail Tech Relationship Specialty Start Date End Date Elsewhere, Pcp PCP - General Internal Medicine 09/14/23 documented as of this encounter
--- OUTSIDE RECORDS SUMMARY | 2023-10-05 12:55 | XMS_ITS | Encounter Summary ---
Author Name Unknown Organization [facility] Address [address] [place] [address] Care Team Providers Care Anesthesia Director Name Role Phone Elsewhere, Pcp Primary Care Provider Unavailabl e Encounter Details Date Type Department Care Team (Late st Contact Info) Description 09/27/2023 11:44 AM TELEVISION AGENT Anesthesia Event Division of Gastroenterology in [place], [place] [address] [place] [phone] Michelle Waite APRN, CRNA, D.N.P. [address] [place] [phone] Zaid Alexander M.D. [address] [place] [phone] Anesthesia Record Procedure Summary Procedure Name Responsible Anesthesiologist Anesthesia Start Time Anesthesia Stop Time EGD ? PERCUTANEOUS ENDOSCOPIC GASTROSTOMY/JEJUNOSTOM Y Michelle Waite APRN, CRNA, D.N.P. 09/27/23 1144 09/27/23 1300 Events Date Time Event Comment 09/27/2023 1143 1144 An Start Machine/Equipme nt Checked Infection Precautions Followed Procedure/Site Verified NPO Status Verified Supine Standard ASA Monitors Applied 1148 An Induction 1154 An Intubation 1158 Turnover to Proceduralist 1206 Proc Start 1241 Proc Fin 1244 Turnover to ANE Staff 1250 Airway Removal Criteria Met 1253 Extubation/Airway Removed 1300 An End I completed my handoff to the receiving staff during which we 1. Identified the patient 2. Identified the responsible provider 3. Reviewed the pertinent medical history 4. Discussed the surgical course 5. Reviewed intra-op anesthesia management and issues during anesthesia 6. Set expectations for post-procedure period 7. Allowed opportunity for questions and acknowledgement of understanding. 1301 an stop data Meds Name Total fentanyl injection 50 mcg/mL 50 mcg lidocaine 2% (mg) injection 40 mg rocuronium 10 mg/mL injection 50 mg phenylephrine 100 mcg/mL injection 300 m cg ondansetron 4 mg/2 mL injection 4 mg sugammadex 100 mg/mL injection 140 mg propofol 10 mg/mL infusion 540.4 mg propofol 10 mg/mL injection 140 mg ceFAZolin 2 g Lactated Ringers Free Drip 400 mL * Agents No agents on file. [...] Anterior, Right 09/24/23 0830 by Jaquan Monroy, R.N. NG/OG Tube 09/27/23; 1230; Percutaneous endoscopic, Gastrostomy-jejunostomy; No; Bumper; 20 Fr (10 fr. J extension); 4 cm (100cm on J extension); Quadrant (abdomen), Left, Upper; Small bore (ENFit??) 09/27/23 1230 by Alyson Cabral, R.N. NG/OG Tube 09/17/23; 1551; Gastrostomy-jejunostomy (23 gastric, 58 jejunum); 16 Fr; Nare, Left; Small bore (ENFit??); 09/27/23; 1230 09/17/23 1551 by Maria Eugenia Verdin RJohannaNJohanna 09/27/23 1230 by Alyson Cabral RGreg. ETT Placement Date: 09/09 06/02; Placement Time: 1154 (created via procedure documentation); Mask Ventilation: Easy mask; Technique: Video laryngoscopy; Type: Standard ETT; Single Lumen Tube Size: 7 mm; Cuffed: Yes; Location: Oral; Grade View: Grade 1; Insertion Attempts: 1; Placement Verification: Bilateral breath sounds, Positive ETCO2, Symmetrical chest wall movement; Removal Date: 09/27/23; Removal Time: 1250 09/27/23 1154 by Michelle Waite APRN, CRNA, D.N.P. 09/27/23 1250 by Carisa Barnett, RGreg. documented in this encounter Social History Tobacco Use Types Packs/Day Years Used Date Smoking Tobacco: Former Cigarettes 09 30 Q uit: 02/07/1989 Passive Smoke Exposure: Never Smokeless Tobacco: Former Snuff, Chew Quit: 04/18/2023 Alcohol Use Standard Drinks/Week Comments Not Currently 3 (1 standard drink = 0.6 oz pur e alcohol) [facility] Utilities Answer Date Recorded In the past 12 months has [employer], gas, oil, or water [employer] threatened to shut off services in your [...] often do you attend chur ch or jewish services? Never 01/10/2023 Do you belong to [...] Recorded PHQ-2 Score 0 04/25/2020 [facility] Occupat ional Health - [...] your living situation today? I have a [facility] place to live 09/15/2023 Education Answer [...] OR Notes * Anesthesia Postprocedure Evaluation - Michelle Waite APRN, CRNA, D.N.P. - 09/27/2023 1:01 PMCST Patient: Hola Lau Procedure Summary Date: 09/27/23 Room / Location: Division of Gastroenterology in [place], [place] Anesthesia Start: 1144 Anesthesia Stop: 1300 Procedure: EGD - PERCUTANEOUS ENDOSCOPIC GASTROSTOMY/JEJUNOSTOMY Diagnosis: Scheduled Providers: Michelle Waite APRN, CRNA, D.N.P.; Sung Jaquez M.D., M.S. Responsible Provider: Michelle Waite APRN, CRNA, D.N.P. Anesthesia Type: general ASA Status: 3 Anesthesia Type: general Last vitals Vitals Value Taken Time BP 115/67 09/27/23 1300 Temp 36.4 ??C 09/27/23 1254 Pulse 81 09/27/23 1301 Resp 16 09/27/23 1301 SpO2 97 % 09/27/23 1301 Vitals shown include unfiled device data. Please reference Vitals flowsheet for most recent vital signs. Anesthesia Post Evaluation Patient Disposition: general care unit Cardiovascular status: hemodynamics (HR & BP) acceptable Respiratory status: patent airway with spontaneous effort Temperature: normothermic Oxygen requirements: room air Level of consciousness: sedated but awakens easily Pain score: pain adequately controlled and/or at baseline Post Op nausea/vomiting: none Hydration status: euvolemic VISION AGENT * Anesthesia Procedure Notes - Michelle Waite APRN, CRNA, D.N.P. - 09/27/2023 12:04 PM CSTAssociated Order(s): Airway Airway Date/Time: 09/27/2023 11:54 AM Performed by: Michelle Waite APRN, CRNA, D.N.P. Authorized by: Michelle Waite APRN, CRNA, D.N.P. Patient location during procedure: OR / Procedure Area PROCEDURE DETAILS: Mask difficulty assessment: easy mask Final airway type: video laryngoscope Laryngeal Manipulation: no Final best view of glottic structures - Cormack/Lehane Score: grade 1 ETT location: oral VL device: glide scope [place] scope blade size: 4 Tube size: 7 [...] Procedure outcome: successful Notable Events: no complications VISION AGENT * Anesthesia Preprocedure Evaluation - Zaid Alexander M.D. - 09/27/2023 11:42 AM CST Preprocedure Anesthesia & H&P Assessment Procedure Summary Date/Time: 09/27/23 1145 Scheduled providers: Michelle Waite APRN, CRNA, D.N.P.; Sung Jaquez M.D., M.S. Procedure: EGD - PERCUTANEOUS ENDOSCOPIC GASTROSTOMY/JEJUNOSTOMY Location: Division of Gastroenterology in [place], [place] Pertinent components of the patient's history including [...] Adult OBJECTIVE PHYSICAL EXAMINATION Airway (HEENT) Mallampati: I TM Distance: >3 FB Neck ROM: Full Mouth Opening: >3 cm Cardiovascular Rhythm: Regular Rate: Normal Cardiovascular Assessment: murmur Pulmonary Pulmonary Assessment: Clear General / Constitutional Constitutional Assessment: Normal General State of Health:: calm and ill appearing Neurological Neurologic Assessment: alert and alert and oriented x 3 Dental Dental Assessment: dentition intact ASSESSMENT / PLAN ANESTHESIA PLAN ASA: 3 Anesthesia Plan: general Patient seen and allergies reviewed, anesthesia plan and risks discussed directly with patient /legal guardian or through an jackscrew worker. The use of blood products not discussed Approval to Proceed: approved for anesthesia VISION AGENT documented in this encounter Plan of Treatment Upcoming Encounters Date Type Department Care Team (Latest Contact Info) Description 10/06/2023 9:04 AM TELEVISION AGENT - 10/06/2023 11:24 AM TELEVISION AGENT Surgery RST ROMB MAIN OR [address] [place] [phone] Cameron Saenz M.D. [address] [place] [address] ABDOMINAL EXPLORATION, REMOVAL ABTHERA, POSSBLE BOWEL RESECTION, PROCEED INDICATED 10/11/2023 7:00 AM TELEVISION AGENT Appointment Department of Laboratory Medicine and Pathology, [facility], in [place], [place] [address] [place] [phone] Arti Epstein M.B.B.S. [address] [place] [phone] 10/11/2023 9:00 AM TELEVISION AGENT Office Visit Division of Hematology in [place], [place] [address] [place] [phone] Arti Epstein M.B.B.S. [address] [place] [phone] 10/11/2023 10:00 AM TELEVISION AGENT Infusion Department of Oncology in [place], [place] [address] [place] [phone] Bev Gifford APRN, C.N.P., M.S.N. [address] [place] [phone] 11/19/2023 10:00 AM CDT Office Visit Division of Endocrinology in [place], [place] [address] [place] [phone] West Mendoza APRN, C.N.P., M.S. [address] [place] [phone] 11/19/2023 2:30 PM CDT Comprehensive Visit Division of Hepatobiliary and Pancreas Surgery in [place], [place] [address] [place] [phone] Wesley Hamilton M.D. [address] [place] [phone] Scheduled Procedures Name Priority Associated Diagnoses Date/Ti me LAPAROTOMY - ABDOMINAL WASHOUT Ischemia Intestinal With Stricture (HCC) 10/06/2023 9:04 AM TELEVISION AGENT documented as of this encounter Procedures Procedure Name Priority Date/Time Associated Diagnosis Comments LDA ANE ENDOTRACHEAL AIRWAY Routine 09/27/2023 11:54 AM TELEVISION AGENT documented in this encounter Results * LDA ANE ENDOTRACHEAL AIRWAY (09/27/2023 11:54 AM TELEVISION AGENT) Narrative Michelle Waite APRN, CRNA, D.N.P. - 09/27/2023 11:54 AM TELEVISION AGENT Michelle Waite APRN, CRNA, D.N.P. ? 09/27/2023 12:09 PM Airway Date/Time: 09/27/2023 11:54 AM Performed by: Michelle Waite APRN, CRNA D.N.P. Authorized by: Michelle Waite APRN, CRNA D.N.P. ?? Patient location during procedure: OR / Procedure Area PROCEDURE DETAILS: Mask difficulty assessment: easy mask Final airway type: video laryngoscope Laryngeal Manipulation: no ?? Final best view of glottic structures - Cormack/Lehane Score: grade 1 ETT location: oral VL device: glide scope [place] scope blade size: 4 Tube size: 7 [...] Waite APRN, CRNA D.N.P. A NESTHESIA ORDERABLES documented in this encounter Visit Diagnoses Not on filedocumented in this encounter Administered Medications Inactive Administered Medications - up to 3 most recent administrations Medication Order MAR Action Action Date Dose Rate Site ceFAZolin injection (ANCEF) intravenous, As needed, Starting on Sat09/27/23 at 1159, Anesthesia Intra-op Given 09/27/2023 11:59 AM TELEVISION AGENT 2 g fentaNYL injection (SUBLIMAZE) intravenous, As needed, Starting on Sat09/27/23 at 1148, Anesthesia Intra-op Given 09/27/2023 11:48 AM TELEVISION AGENT 50 mcg Lactated Ringer's intravenous, Continuous Infusion: Per Instructions PRN, Starting on Sat09/27/23 at 1146, Anesthesia Intra-op New Bag 09/27/2023 11:46 AM TELEVISION AGENT lidocaine (PF) (cardiac) injection intravenous, As needed, Starting on Sat09/27/23 at 1148, Anesthesia Intra-op Given 09/27/2023 11:48 AM TELEVISION AGENT 40 mg ondansetron (PF) injection (ZOFRAN) intravenous, As needed, Starting on Sat09/27/23 at 1148, Anesthesia Intra-op Given 09/27/2023 11:48 AM TELEVISION AGENT 4 mg phenylephrine injection intravenous, As needed, Starting on Sat09/27/23 at 1231, Anesthesia Intra-op Given 09/27/2023 12:36 PM TELEVISION AGENT 100 mcg Given 09/27/2023 12:34 PM TELEVISION AGENT 100 mcg Given 09/27/2023 12:31 PM TELEVISION AGENT 100 mcg propofol 10 mg/mL infusion (DIPRIVAN) intravenous, Continuous Infusion: Per Instructions PRN, Starting on Sat09/27/23 at 1159, Anesthesia Intra-op Rate/Dose Change 09/27/2023 12:15 PM TELEVISION AGENT 120 mcg/kg/min 50.4 mL/hr Rate/Dose Change 09/27/2023 12:05 PM TELEVISION AGENT 160 mcg/kg/min 67 .2 mL/hr New Bag 09/27/2023 11:59 AM TELEVISION AGENT 120 mcg/kg/min 50.4 mL/ hr propofoL injection (DIPRIVAN) intravenous, As needed, Starting on Sat09/27/23 at 1148, Anesthesia Intra-op Given 09/27/2023 11:48 AM TELEVISION AGENT 140 mg rocuronium injection (ZEMURON) intravenous, As needed, Starting on Sat09/27/23 at 1148, Anesthesia Intra-op Given 09/27/2023 11:48 AM TELEVISION AGENT 50 mg sugammadex injection (BRIDION) intravenous, As needed, Starting on Sat09/27/23 at 1244, Anesthesia Intra-op Given 09/27/2023 12:44 PM TELEVISION AGENT 140 mg documented in this encounter Additional Health Concerns Infection Onset Date Last Indicated Resolved Time Protective Environment 05/17/2023 05/17/2023 documented as of this encounter Care Teams Anesthesia Director Relationship Specialty Start Date End Date Elsewhere, Pcp PCP - General Internal Medicine 09/14/23 documented as of this encounter
--- OUTSIDE RECORDS SUMMARY | 2023-10-05 12:55 | XMS_ITS | Encounter Summary ---
Author Name Unknown Organization [facility] Address [address] [place] [address] Care Team Providers Care Rn Cardiac Cath Name Role Phone Elsewhere, Pcp Primary Care Provider Unavailabl e Encounter Details Date Type Department Care Team (Latest Contact Info) Description 09/17/2023 2:40 PM GRAPE PRUNER Ancillary Procedure Department of Gastroenterology Social History [...] In the past 12 months has e [employer], gas, oil, or water [employer] threatened to shut off services in your [...] any clubs o r organizations such as cheondoism groups, unions, fraternal or athletic groups, or [...] Answer Date Recorded PHQ-2 Score 0 04/25/2020 [facility] of Occupat ional Health - [...] your living situation today? I have a [employer] place to live 09/15/2023 Education Answer Date [...] (Latest Contact Info) Description 10/06/2023 9:04 AM GRAPE PRUNER - 10/06/2023 11:24 AM GRAPE PRUNER Surgery RST ROMB MAIN OR [address] [place] [phone] Cameron Saenz M.D. [address] [place] [phone] ABDOMINAL EXPLORATION, REMOVAL ABTHERA, POSSBLE BOWEL RESECTION, PROCEED INDICATED 10/11/2023 7:00 AM GRAPE PRUNER Appointment Department of Laboratory Medicine and Pathology, [facility], in [place], [place] [address] [place] [phone] Arti Epstein M.B.B.S. [address] [place] [phone] 10/11/2023 9:00 AM GRAPE PRUNER Office Visit Division of Hematology in [place], [place] [address] [place] [phone] Arti Epstein M.B.B.S. [address] [place] [phone] 10/11/2023 10:00 AM GRAPE PRUNER Infusion Department of Oncology in [place], [place] [address] [place] [phone] Bev Gifford APRN, C.N.P., M.S.N. [address] [place] [phone] 11/19/2023 10:00 AM CDT Office Visit Division of Endocrinology in [place], [place] [address] [place] [phone] West Mendoza APRN, C.N.P., M.S. [address] [place] [phone] 11/19/2023 2:30 PM CDT Comprehensive Visit Division of Hepatobiliary and Pancreas Surgery in [place], [place] [address] [place] [phone] Wesley Hamilton M.D. [address] [place] [phone] Scheduled Procedures Name Priority Associated Diagnoses Date/Ti me LAPAROTOMY - ABDOMINAL WASHOUT Ischemia Intestinal With Stricture (HCC) 10/06/2023 9:04 AM GRAPE PRUNER documented as of this encounter Procedures Procedure Name Priority Date/Time Associated Diagnosis Comments GASTROENTEROLOGY IMAGE EXAM Routine 09/17/2023 2:40 PM GRAPE PRUNER documented in this encounter Results * Upper GI endoscopy-Gastroenterology Image Exam (09/17/2023 2:40 PM GRAPE PRUNER) 09/17/2023 2:36 PM GRAPE PRUNER Narrative [facility] - 09/17/2023 3:49 PM GRAPE PRUNER This order has been created and auto-finalized [...] documented as of this encounter Care Teams Rn Cardiac Cath Relationship Specialty Start Date End Date Elsewhere, Pcp PCP - General Internal Medicine 09/14/23 documented as of this encounter
--- OUTSIDE RECORDS SUMMARY | 2023-10-05 12:55 | XMS_ITS | Encounter Summary ---
Author Name Unknown Organization [facility] Address [address] [place] [address] Care Team Providers Care Fiberglass Autobody Repairer Name Role Phone Elsewhere, Pcp Primary Care Provider Unavailabl e Encounter Details Date Type Department Care Team (Late st Contact Info) Description 09/24/2023 8:55 AM SURGICAL SERVICES ASST Ancillary Procedure Department of Nursing Social History Tobacco Use Types Packs/Day Years Used Date Smoking Tobacco: Former Cigarettes 1 22 Q uit: 02/07/1989 Passive Smoke Exposure: Never Smokeless Tobacco: Former Snuff, Chew Quit: 04/18/2023 Alcohol Use Standard Drinks/Week Comments Not Currently 3 (1 standard drink = 0.6 oz pur e alcohol) [facility] Utilities Answer Date Recorded In the past 12 months has e electric, gas, oil, or water [employer] threatened to shut off services in your [...] often do you attend chur ch or yazdanism services? Never 01/10/2023 Do you belong to any clubs o r organizations such as temple groups, unions, fraternal or athletic groups, or [...] Answer Date Recorded PHQ-2 Score 0 04/25/2020 [facility] of Occupat ional Health - [...] your living situation today? I have a [facility] place to live 09/15/2023 Education Answer Date [...] (Latest Contact Info) Description 10/06/2023 9:04 AM SURGICAL SERVICES ASST - 10/06/2023 11:24 AM SURGICAL SERVICES ASST Surgery RST ROMB MAIN OR [address] [place] [phone] Cameron Saenz M.D. [address] [place] [phone] ABDOMINAL EXPLORATION, REMOVAL ABTHERA, POSSBLE BOWEL RESECTION, PROCEED INDICATED 10/11/2023 7:00 AM SURGICAL SERVICES ASST Appointment Department of Laboratory Medicine and Pathology, [facility], in [place], [place] [address] [place] [phone] Arti Epstein M.B.B.S. [address] [place] [phone] 10/11/2023 9:00 AM SURGICAL SERVICES ASST Office Visit Division of Hematology in [place], [place] [address] [place] [phone] Arti Epstein M.B.B.S. [address] [place] [phone] 10/11/2023 10:00 AM SURGICAL SERVICES ASST Infusion Department of Oncology in [place], [place] [address] [place] [phone] Bev Gifford APRN, C.N.P., M.S.N. [address] [place] [phone] 11/19/2023 10:00 AM CDT Office Visit Division of Endocrinology in [place], [place] [address] [place] [phone] West Mendoza APRN, C.N.P., M.S. [address] [place] [phone] 11/19/2023 2:30 PM CDT Comprehensive Visit Division of Hepatobiliary and Pancreas Surgery in [address] [phone] Wesley Hamilton M.D. [address] [place] [phone] Scheduled Procedures Name Priority Associated Diagnoses Date/Ti me LAPAROTOMY - ABDOMINAL WASHOUT Ischemia Intestinal With Stricture (HCC) 10/06/2023 9:04 AM SURGICAL SERVICES ASST documented as of this encounter Procedures Procedure Name Priority Date/Time Associated Diagnosis Comments NURSING IMAGE EXAM Routine 09/24/2023 8: 51 AM SURGICAL SERVICES ASST documented in this encounter Results * Foot, Left-Nursing Image Exam (09/24/2023 8:51 AM SURGICAL SERVICES ASST) 09/24/2023 8:49 AM SURGICAL SERVICES ASST Narrative [facility]IM[facility] - 09/24/2023 8:51 AM SURGICAL SERVICES ASST This order has been created and auto-finalized [...] documented as of this encounter Care Teams Fiberglass Autobody Repairer Relationship Specialty Start Date End Date Elsewhere, Pcp PCP - General Internal Medicine 09/14/23 documented as of this encounter
--- OUTSIDE RECORDS SUMMARY | 2023-10-05 12:55 | XMS_ITS | Encounter Summary ---
Author Name Unknown Organization [facility] Address [address] [place] [address] Care Team Providers Care Wood Type Finisher Name Role Phone Elsewhere, Pcp Primary Care Provider Unavailabl e Encounter Details Date Type Department Care Team (Late st Contact Info) Description 10/01/2023 10:25 AM TRAINING AND DEVELOPMENT HEAD Ancillary Procedure Department of Nursing Social History Tobacco Use Types Packs/Day Years Used Date Smoking Tobacco: Former Cigarettes 1 22 Q uit: 02/07/1989 Passive Smoke Exposure: Never Smokeless Tobacco: Former Snuff, Chew Quit: 04/18/2023 Alcohol Use Standard Drinks/Week Comments Not Currently 3 (1 standard drink = 0.6 oz pur e alcohol) [facility] Utilities Answer Date Recorded In the past 12 months has e [employer], gas, oil, or water [employer] threatened to shut off services in your [...] often do you attend chur ch or episcopalian services? Never 01/10/2023 Do you belong to [...] Answer Date Recorded PHQ-2 Score 0 04/25/2020 [facility] - Occupational [...] your living situation today? I have a [facility] place to live 09/15/2023 Education Answer [...] (Latest Contact Info) Description 10/06/2023 9:04 AM TRAINING AND DEVELOPMENT HEAD - 10/06/2023 11:24 AM TRAINING AND DEVELOPMENT HEAD Surgery [facility] MAIN OR [address] [place] [phone] Cameron Saenz M.D. [address] [place] [phone] ABDOMINAL EXPLORATION, REMOVAL ABTHERA, POSSBLE BOWEL RESECTION, PROCEED INDICATED 10/11/2023 7:00 AM TRAINING AND DEVELOPMENT HEAD Appointment Department of Laboratory Medicine and Pathology, [facility], in [place], [place] [address] [place] [phone] Arti Epstein M.B.B.S. [address] [place] [phone] 10/11/2023 9:00 AM TRAINING AND DEVELOPMENT HEAD Office Visit Division of Hematology in [place], [place] [address] [place] [phone] Arti Epstein M.B.B.S. [address] [place] [phone] 10/11/2023 10:00 AM TRAINING AND DEVELOPMENT HEAD Infusion Department of Oncology in [place], [place] [address] [place] [phone] Bev Gifford APRN, C.N.P., M.S.N. [address] [place] [phone] 11/19/2023 10:00 AM CDT Office Visit Division of Endocrinology in [place], [place] [address] [place] [phone] West Mendoza APRN, C.N.P., M.S. [address] [place] [phone] 11/19/2023 2:30 PM CDT Comprehensive Visit Division of Hepatobiliary and Pancreas Surgery in [address] [phone] Wesley Hamilton M.D. [address] [place] [phone] Scheduled Procedures Name Priority Associated Diagnoses Date/Ti me LAPAROTOMY - ABDOMINAL WASHOUT Ischemia Intestinal With Stricture (HCC) 10/06/2023 9:04 AM TRAINING AND DEVELOPMENT HEAD documented as of this encounter Procedures Procedure Name Priority Date/Time Associated Diagnosis Comments NURSING IMAGE EXAM Routine 10/01/2023 10 :25 AM TRAINING AND DEVELOPMENT HEAD documented in this encounter Results * Foot, Left-Nursing Image Exam (10/01/2023 10:25 AM TRAINING AND DEVELOPMENT HEAD) 10/01/2023 10:2 4 AM TRAINING AND DEVELOPMENT HEAD Narrative IIMS - 10/01/2023 10:26 AM TRAINING AND DEVELOPMENT HEAD This order has been created and auto-finalized [...] documented as of this encounter Care Teams Wood Type Finisher Relationship Specialty Start Date End Date Elsewhere, Pcp PCP - General Internal Medicine 09/14/23 documented as of this encounter
--- OUTSIDE RECORDS SUMMARY | 2023-10-05 12:55 | XMS_ITS | Encounter Summary ---
Author Name Unknown Organization [facility] Address [address] [place] [address] Care Team Providers Care Home Help Aide Name Role Phone Elsewhere, Pcp Primary Care Provider Unavailabl e Reason for Visit * Reason Onset Date Comments Post Hospital Follow-up 09/20/2023 Encounter Details Date Type Department Care Team (Latest Contact Info) Description 09/20/2023 Clinical Communication [facility] [address] [place] [phone] Ling Carrillo M.D. [address] [place] [phone] Post Hospital Follow-up Social History Tobacco Use Types Packs/Day Years Used Date Smoking Tobacco: Former Cigarettes 1 22 Q uit: 02/07/1989 Passive Smoke Exposure: Never Smokeless Tobacco: Former Snuff, Chew Quit: 04/18/2023 Alcohol Use Standard Drinks/Week Comments Not Currently 3 (1 standard drink = 0.6 oz pur e alcohol) [facility] Utilities Answer Date Recorded In the [...] often do you attend chur ch or zoroastrian services? Never 01/10/2023 Do you belong to any clubs o r organizations such as rastafari groups, unions, fraternal or athletic groups, or [...] Recorded PHQ-2 Score 0 04/25/2020 [facility] - Occupational Stress Questionnaire Answer [...] your living situation today? I have a [facility] place to live 09/15/2023 Education [...] (Latest Contact Info) Description 10/06/2023 9:04 AM GLASS RIBBON MACHINE OPERATOR ASSISTANT - 10/06/2023 11:24 AM GLASS RIBBON MACHINE OPERATOR ASSISTANT Surgery [facility]ST ROMB MAIN OR [address] [place] [phone] Cameron Saenz M.D. [address] [place] [phone] ABDOMINAL EXPLORATION, REMOVAL ABTHERA, POSSBLE BOWEL RESECTION, PROCEED INDICATED 10/11/2023 7:00 AM GLASS RIBBON MACHINE OPERATOR ASSISTANT Appointment Department of Laboratory Medicine and Pathology, [facility], in [place], [place] [address] [place] [phone] Arti Epstein M.B.B.S. [address] [place] [phone] 10/11/2023 9:00 AM GLASS RIBBON MACHINE OPERATOR ASSISTANT Office Visit Division of Hematology in [place], [place] [address] [place] [phone] Arti Epstein M.B.B.S. [address] [place] [phone] 10/11/2023 10:00 AM GLASS RIBBON MACHINE OPERATOR ASSISTANT Infusion Department of Oncology in [place], [place] [address] [place] [phone] Bev Gifford APRN, C.N.P., M.S.N. [address] [place] [phone] 11/19/2023 10:00 AM CDT Office Visit Division of Endocrinology in [address] [phone] West Mendoza APRN, C.N.P., M.S. [address] [place] [phone] 11/19/2023 2:30 PM CDT Comprehensive Visit Division of Hepatobiliary and Pancreas Surgery in [address] [phone] Wesley Hamilton M.D. [address] [place] [phone] Scheduled Procedures Name Priority Associated Diagnoses Date/Ti me LAPAROTOMY - ABDOMINAL WASHOUT Ischemia Intestinal With Stricture (HCC) 10/06/2023 9:04 AM GLASS RIBBON MACHINE OPERATOR ASSISTANT documented as of this encounter Visit Diagnoses Diagnosis Neutropenia (HCC)- Primary Gout Anemia Ischemia Intestinal With Stricture (HCC) documented in this encounter Additional Health Concerns Infection Onset Date Last Indicated Resolved Time Protective Environment 05/17/2023 05/17/2023 documented as of this encounter Care Teams Home Help Aide Relationship Specialty Start Date End Date Elsewhere, Pcp PCP - General Internal Medicine 09/14/23 documented as of this encounter
--- OUTSIDE RECORDS SUMMARY | 2023-10-05 12:55 | XMS_ITS | Encounter Summary ---
Author Name Unknown Organization [facility] Address [address] [place] [phone] Care Team Providers Care Water Quality Control Engineer Name Role Phone Elsewhere, Pcp Primary Care Provider Unavailabl e Reason for Visit * Reason Onset Date Comments Post Hospital Follow-up 09/20/2023 Encounter Details Date Type Department Care Team (Latest Contact Info) Description 09/20/2023 Clinical Communication RST HIM [address] [place] [phone] Ling Carrillo M.D. [address] [place] [phone] Post Hospital Follow-up Social History Tobacco Use Types Packs/Day Years Used Date Smoking Tobacco: Former Cigarettes 1 22 Q uit: 02/07/1989 Passive Smoke Exposure: Never Smokeless Tobacco: Former Snuff, Chew Quit: 04/18/2023 Alcohol Use Standard Drinks/Week Comments Not Currently 3 (1 standard drink = 0.6 oz pur e alcohol) [facility] Utilities Answer Date Recorded In the [...] often do you attend chur ch or rastafarian services? Never 01/10/2023 Do you belong to any clubs o r organizations such as episcopal groups, unions, fraternal or athletic groups, or [...] Answer Date Recorded PHQ-2 Score 0 04/25/2020 [facility] - Occupational Stress Questionnaire Answer [...] your living situation today? I have a [facility] place to live 09/15/2023 Education Answer [...] (Latest Contact Info) Description 10/06/2023 9:04 AM UX DESIGNER - 10/06/2023 11:24 AM UX DESIGNER Surgery [facility]ST ROMB MAIN OR [address] [place] [phone] Cameron Saenz M.D. [address] [place] [phone] ABDOMINAL EXPLORATION, REMOVAL ABTHERA, POSSBLE BOWEL RESECTION, PROCEED INDICATED 10/11/2023 7:00 AM UX DESIGNER Appointment Department of Laboratory Medicine and Pathology, [facility], in [place], [place] [address] [place] [phone] Arti Epstein M.B.B.S. [address] [place] [phone] 10/11/2023 9:00 AM UX DESIGNER Office Visit Division of Hematology in [place], [place] [address] [place] [phone] Arti Epstein M.B.B.S. [address] [place] [phone] 10/11/2023 10:00 AM UX DESIGNER Infusion Department of Oncology in [place], [place] [address] [place] [phone] Bev Gifford APRN, C.N.P., M.S.N. [address] [place] [phone] 11/19/2023 10:00 AM CDT Office Visit Division of Endocrinology in [address] [phone] West Mendoza APRN, C.N.P., M.S. [address] [place] [phone] 11/19/2023 2:30 PM CDT Comprehensive Visit Division of Hepatobiliary and Pancreas Surgery in [address] [phone] Wesley Hamilton M.D. [address] [place] [phone] Scheduled Procedures Name Priority Associated Diagnoses Date/Ti me LAPAROTOMY - ABDOMINAL WASHOUT Ischemia Intestinal With Stricture (HCC) 10/06/2023 9:04 AM UX DESIGNER documented as of this encounter Results * (ABNORMAL) Comprehensive Metabolic Panel (10/03/2023 12:33 PM UX DESIGNER) Potassium, S 5.2 3.6 - 5.2 mmol/L 10/03/2023 4:11 PM UX DESIGNER DTL Sodium, S 137 135 - 145 mmol/L 10/03/2023 4:11 PM UX DESIGNER DTL Chloride, S 102 98 - 107 mmol/L 10/03/2023 4:11 PM UX DESIGNER DTL Bicarbonate, S 23 22 - 29 mmol/L 10/03/2023 4:11 PM UX DESIGNER DTL Anion Gap 12 7 - 15 10/03/2023 4:11 PM UX DESIGNER DTL BUN (Blood Urea Nitrogen), S 30(H) 8 - 24 mg/dL 10/03/2023 4:11 PM UX DESIGNER DTL Creatinine 0.80 0.74 - 1.35 mg/dL 10/03/2023 4:11 PM UX DESIGNER DTL Estimated GFR (eGFR) >90 >=60 mL/min/BS A 10/03/2023 4:11 PM UX DESIGNER DTL Comment: Estimated GFR calculated using the 2020 CKD_EPI creatinine equation. Calcium, Total, S 8.4(L) 8.8 - 10.2 mg/dL 10/03/2023 4:11 PM UX DESIGNER DTL Glucose, S 130 70 - 140 mg/dL 10/03/2023 4:11 PM UX DESIGNER DTL Protein, Total, S 5.2(L) 6.3 - 7.9 g/dL 10/03/2023 4:11 PM UX DESIGNER DTL Albumin, S 3.4(L) 3.5 - 5.0 g/dL 10/03/2023 4:11 PM UX DESIGNER DTL Aspartate Aminotransferase (AST), S 20 8 - 48 U/L 10/03/2023 4:11 PM UX DESIGNER DTL Alkaline Phosphatase, S 147(H) 40 - 129 U/L 10/03/2023 4:11 PM UX DESIGNER DTL Alanine Aminotransferase (ALT), S 20 7 - 55 U/L 10/03/2023 4:11 PM UX DESIGNER DTL Bilirubin, Total, S <0.2 0.0 - 1.2 mg/dL 10/03/2023 4:11 PM UX DESIGNER DTL Blood (Blood, Venous) 10/03/2023 12:33 PM UX DESIGNER 10/03/2023 1:04 PM UX DESIGNER Sarah Reardon M.D. LAB BLOOD ADD-ON [facility] [address] [place] [address], [facility] DTL [facility][note 2] [address] [place] [address] * (ABNORMAL) CBC with Differential, Blood (10/03/2023 12:33 PM UX DESIGNER) Hemoglobin 8.8(L) 13.2 - 16.6 g/dL 10/03/2023 12:58 PM UX DESIGNER DTL Hematocrit 27.1(L) 38.3 - 48.6 % 10/03/2023 12:58 PM UX DESIGNER DTL Erythrocytes 2.86(L) 4.35 - 5.65 x10(12)/L 10/03/2023 12:58 PM UX DESIGNER DTL MCV 94.8 78.2 - 97.9 fL 10/03/2023 12:58 PM UX DESIGNER DTL RBC Distrib Width 16.6(H) 11.8 - 14.5 % 10/03/2023 12:58 PM UX DESIGNER DTL Platelet Count 195 135 - 317 x10(9)/L 10/03/2023 12:58 PM UX DESIGNER DTL Leukocytes 5.2 3.4 - 9.6 x10(9)/L 10/03/2023 12:58 PM UX DESIGNER DTL Neutrophils 4.34 1.56 - 6.45 x10(9)/L 10/03/2023 12:58 PM UX DESIGNER DHPM Lymphocytes 0.28(L) 0.95 - 3.07 x10(9)/L 10/03/2023 12:58 PM UX DESIGNER DTL Monocytes 0.45 0.26 - 0.81 x10(9)/L 10/03/2023 12:58 PM UX DESIGNER DTL Eosinophils 0.15 0.03 - 0.48 x10(9)/L 10/03/2023 12:58 PM UX DESIGNER DTL Basophils <0.03 0.01 - 0.08 x10(9)/L 10/03/2023 12:58 PM UX DESIGNER DTL Blood (Blood, Venous) 10/03/2023 12:33 PM UX DESIGNER 10/03/2023 12:49 PM UX DESIGNER Sarah Reardon M.D. LAB BLOOD ADD-ON [facility] [address] [place] [address], [facility] DTL [facility][note 2] [address] [place] [address] [facility] [address] [place] [address] documented in this encounter Visit Diagnoses Diagnosis Neutropenia (HCC)- Primary Gout Ischemia Intestinal With Stricture (HCC) documented in this encounter Additional Health Concerns Infection Onset Date Last Indicated Resolved Time Protective Environment 05/17/2023 05/17/2023 documented as of this encounter Care Teams Water Quality Control Engineer Relationship Specialty Start Date End Date Elsewhere, Pcp PCP - General Internal Medicine 09/14/23 documented as of this encounter
--- OUTSIDE RECORDS SUMMARY | 2023-10-05 12:55 | XMS_ITS | Encounter Summary ---
Author Name Unknown Organization [facility] Address [address] [place] [address] Care Team Providers Care Forensic Science Examiner Name Role Phone Elsewhere, Pcp Primary Care Provider Unavailabl e Encounter Details Date Type Department Care Team (Late st Contact Info) Description 10/01/2023 10:30 AM OFFICE ADMINISTRATION Ancillary Procedure Department of Nursing Social History Tobacco Use Types Packs/Day Years Used Date Smoking Tobacco: Former Cigarettes 1 22 Q uit: 02/07/1989 Passive Smoke Exposure: Never Smokeless Tobacco: Former Snuff, Chew Quit: 04/18/2023 Alcohol Use Standard Drinks/Week Comments Not Currently 3 (1 standard drink = 0.6 oz pur e alcohol) [facility] Utilities Answer Date Recorded In the past 12 months has e [employer], gas, oil, or water [employer] threatened to shut off services in your [...] often do you attend chur ch or protestant services? Never 01/10/2023 Do you belong to any clubs o r organizations such as mu-ism groups, unions, fraternal or athletic groups, or [...] Answer Date Recorded PHQ-2 Score 0 04/25/2020 [facility] - Occupational [...] living situation today? I have a [facility] place to live 09/15/2023 Education Answer [...] (Latest Contact Info) Description 10/06/2023 9:04 AM OFFICE ADMINISTRATION - 10/06/2023 11:24 AM OFFICE ADMINISTRATION Surgery [facility]ST ROM[facility] MAIN OR [address] [place] [phone] Cameron Saenz M.D. [address] [place] [phone] ABDOMINAL EXPLORATION, REMOVAL ABTHERA, POSSBLE BOWEL RESECTION, PROCEED INDICATED 10/11/2023 7:00 AM OFFICE ADMINISTRATION Appointment Department of Laboratory Medicine and Pathology, [facility], in [place], [place] [address] [place] [phone] Arti Epstein M.B.B.S. [address] [place] [phone] 10/11/2023 9:00 AM OFFICE ADMINISTRATION Office Visit Division of Hematology in [place], [place] [address] [place] [phone] Arti Epstein M.B.B.S. [address] [place] [phone] 10/11/2023 10:00 AM OFFICE ADMINISTRATION Infusion Department of Oncology in [place], [place] [address] [place] [phone] Bev Gifford APRN, C.N.P., M.S.N. [address] [place] [phone] 11/19/2023 10:00 AM CDT Office Visit Division of Endocrinology in [place], [place] [address] [place] [phone] West Mendoza APRN, C.N.P., M.S. [address] [place] [phone] 11/19/2023 2:30 PM CDT Comprehensive Visit Division of Hepatobiliary and Pancreas Surgery in [address] [phone] Wesley Hamilton M.D. [address] [place] [phone] Scheduled Procedures Name Priority Associated Diagnoses Date/Ti me LAPAROTOMY - ABDOMINAL WASHOUT Ischemia Intestinal With Stricture (HCC) 10/06/2023 9:04 AM OFFICE ADMINISTRATION documented as of this encounter Procedures Procedure Name Priority Date/Time Associated Diagnosis Comments NURSING IMAGE EXAM Routine 10/01/2023 10 :26 AM OFFICE ADMINISTRATION documented in this encounter Results * Foot, Right-Nursing Image Exam (10/01/2023 10:26 AM OFFICE ADMINISTRATION) 10/01/2023 10:2 4 AM OFFICE ADMINISTRATION Narrative IIMS - 10/01/2023 10:26 AM OFFICE ADMINISTRATION This order has been created and auto-finalized [...] documented as of this encounter Care Teams Forensic Science Examiner Relationship Specialty Start Date End Date Elsewhere, Pcp PCP - General Internal Medicine 09/14/23 documented as of this encounter
--- OUTSIDE RECORDS SUMMARY | 2023-10-05 12:55 | XMS_ITS | Encounter Summary ---
Author Name Unknown Organization [facility] Address [address] [place] [address] Care Team Providers Care Produce Team Lead Name Role Phone Elsewhere, Pcp Primary Care Provider Unavailabl e Encounter Details Date Type Department Care Team (Late st Contact Info) Description 09/24/2023 8:50 AM STRATEGIC PLANNER Ancillary Procedure Department of Nursing Social History Tobacco Use Types Packs/Day Years Used Date Smoking Tobacco: Former Cigarettes 1 22 Q uit: 02/07/1989 Passive Smoke Exposure: Never Smokeless Tobacco: Former Snuff, Chew Quit: 04/18/2023 Alcohol Use Standard Drinks/Week Comments Not Currently 3 (1 standard drink = 0.6 oz pur e alcohol) [facility] Utilities Answer Date Recorded In the past 12 months has e electric, gas, oil, or water [employer] threatened to shut off services in your [...] often do you attend chur ch or quaker services? Never 01/10/2023 Do you belong to any clubs o r organizations such as mandaen groups, unions, fraternal or athletic groups, or [...] Answer Date Recorded PHQ-2 Score 0 04/25/2020 [facility] - [...] your living situation today? I have a [facility] place to live 09/15/2023 Education Answer [...] (Latest Contact Info) Description 10/06/2023 9:04 AM STRATEGIC PLANNER - 10/06/2023 11:24 AM STRATEGIC PLANNER Surgery [facility]ST [facility] MAIN OR [address] [place] [phone] Cameron Saenz M.D. [address] [place] [phone] ABDOMINAL EXPLORATION, REMOVAL ABTHERA, POSSBLE BOWEL RESECTION, PROCEED INDICATED 10/11/2023 7:00 AM STRATEGIC PLANNER Appointment Department of Laboratory Medicine and Pathology, [facility], in [place], [place] [address] [place] [phone] Arti Epstein M.B.B.S. [address] [place] [phone] 10/11/2023 9:00 AM STRATEGIC PLANNER Office Visit Division of Hematology in [place], [place] [address] [place] [phone] Arti Epstein M.B.B.S. [address] [place] [phone] 10/11/2023 10:00 AM STRATEGIC PLANNER Infusion Department of Oncology in [place], [place] [address] [place] [phone] Bev Gifford APRN, C.N.P., M.S.N. [address] [place] [phone] 11/19/2023 10:00 AM CDT Office Visit Division of Endocrinology in [place], [place] [address] [place] [phone] West Mendoza APRN, C.N.P., M.S. [address] [place] [phone] 11/19/2023 2:30 PM CDT Comprehensive Visit Division of Hepatobiliary and Pancreas Surgery in [address] [phone] Wesley Hamilton M.D. [address] [place] [phone] Scheduled Procedures Name Priority Associated Diagnoses Date/Ti me LAPAROTOMY - ABDOMINAL WASHOUT Ischemia Intestinal With Stricture (HCC) 10/06/2023 9:04 AM STRATEGIC PLANNER documented as of this encounter Procedures Procedure Name Priority Date/Time Associated Diagnosis Comments NURSING IMAGE EXAM Routine 09/24/2023 8: 50 AM STRATEGIC PLANNER documented in this encounter Results * Foot, Right-Nursing Image Exam (09/24/2023 8:50 AM STRATEGIC PLANNER) 09/24/2023 8:49 AM STRATEGIC PLANNER Narrative IIMS - 09/24/2023 8:51 AM STRATEGIC PLANNER This order has been created and auto-finalized [...] documented as of this encounter Care Teams Produce Team Lead Relationship Specialty Start Date End Date Elsewhere, Pcp PCP - General Internal Medicine 09/14/23 documented as of this encounter
--- OUTSIDE RECORDS SUMMARY | 2023-10-05 12:56 | XMS_ITS | Encounter Summary ---
Author Name Unknown Organization [facility] Address [address] [place] [address] Care Team Providers Care Dance Professor Name Role Phone Elsewhere, Pcp Primary Care Provider Unavailabl e Encounter Details Date Type Department Care Team (Late st Contact Info) Description 09/04/2023 5:30 PM DRYWALL STRIPPER Infusion Department of Infusion Therapy in [place], [place] [address] [place] [phone] Bev Gifford APRN, C.N.P., M.S.N. [address] [place] [phone] Lymphoma Non Hodgkins (HCC) (Primary Dx); Anemia Social History Tobacco Use Types Packs/Day Years Used Date Smoking Tobacco: Former Cigarettes 1 22 Q uit: 02/07/1989 Passive Smoke Exposure: Never Smokeless Tobacco: Former Snuff, Chew Quit: 04/18/2023 Alcohol Use Standard Drinks/Week Comments Not Currently 3 (1 standard drink = 0.6 oz pur e alcohol) Humiliation, Afraid, Rape, and Kick questionnair e Answer Date Recorded Within the last year, have y ou been afraid of your partner or ex-partner? No 01/10/2023 Within the last year, have y ou been humiliated or emotionally abused in other ways by your partner or ex-partner? No Within the last year, have y ou been kicked, hit, slapped, or otherwise physically hurt by your partner or ex-partner? No 01/10/2023 Within the last year, have y ou been raped or forced to have any kind of sexual activity by your partner or ex-partner? No 01/10/2023 Social Connection and Isolation Panel [NHANES] A [...] any clubs o r organizations such as mormon groups, unions, fraternal or athletic groups, or [...] Answer Date Recorded PHQ-2 Score 0 04/25/2020 [facility] of Occupat ional Health - Occupational Stress [...] the money to buy more. Never true 01/11/20 23 Within the past 12 months, t he food you bought just didn't last and you didn't have money to get more. Never true 01/10/2023 PRAPARE - Transportation Answer Date Re corded In the past 12 months, has l ack of transportation kept you from medical appointments or from getting medications? No 12/2022 In the past 12 months, has l ack of transportation kept you from meetings, work, or from getting things needed for daily living? No 01/10/2023 Housing Stability Vital Sign Answer Lon e Recorded In the last 12 months, was t here a time when you were not able to pay the mortgage or rent on time? No 01/10/2023 In the last 12 months, how many places have you lived? 1 01/10/2023 In the last 12 months, was t here a time when you did not have a steady place to sleep or slept in a assisted (including now)? No 01/10/2023 Nutrition Answer Date Recorded Nutrition: EVOO Fat Source No 01/10 On average, how many serving s of fruits and vegetables do you eat per day (serving size is equal to 1 cup or approximately the size of a tennis ball)? 0-1 01/10/2023 Dental Answer Date Recorded Dental: Regular Dentist Yes 01/23/20 Employment Answer Date Recorded Employment status Retired 01/10/2023 Education Answer Date Recorded What is the [...] Sign Reading Time Taken Comments Blood Pressure 138/73 09/04/2023 8:07 PM DRYWALL STRIPPER Pulse 94 09/04/2023 8:07 PM DRYWALL STRIPPER Temperature 36.5 ??C (97.7 ??F) 09/04/2023 8:07 PM CS T Respiratory Rate 20 09/04/2023 8:07 PM DRYWALL STRIPPER Oxygen Saturation - - Inhaled Oxygen Concentration - - Weight - - Height - - Body Mass Index - - documented in this encounter Plan of Treatment Upcoming Encounters Date Type Department Care Team (Latest Contact Info) Description 10/06/2023 9:04 AM DRYWALL STRIPPER - 10/06/2023 11:24 AM DRYWALL STRIPPER Surgery [facility] MAIN OR [address] [place] [phone] Cameron Saenz M.D. [address] [place] [phone] ABDOMINAL EXPLORATION, REMOVAL ABTHERA, POSSBLE BOWEL RESECTION, PROCEED INDICATED 10/11/2023 7:00 AM DRYWALL STRIPPER Appointment Department of Laboratory Medicine and Pathology, [facility] in [place], [place] [address] [place] [place] [phone] Arti Epstein M.B.B.S. [address] [place] [phone] 10/11/2023 9:00 AM DRYWALL STRIPPER Office Visit Division of Hematology in [place], [place] [address] [place] [place] [phone] Arti Epstein M.B.B.S. [address] [place] [phone] 10/11/2023 10:00 AM DRYWALL STRIPPER Infusion Department of Oncology in [place], [place] [address] [place] [phone] Bev Gifford APRN, C.N.P., M.S.N. [address] [place] [phone] 11/19/2023 10:00 AM CDT Office Visit Division of Endocrinology in [place], [place] [address] [place] [phone] West Mendoza APRN, C.N.P., M.S. [address] [place] [phone] 11/19/2023 2:30 PM CDT Comprehensive Visit Division of Hepatobiliary and Pancreas Surgery in [place], [place] [address] [place] [phone] Wesley Hamilton M.D. [address] [place] [phone] Pending Results Name Type Priority Associated Diagnoses Date /Time Prepare Red Blood Cells, 1 Units Blood Bank Routine Lymphoma Non Hodgkins (HCC) Anemia 09/04/2023 3:16 PM DRYWALL STRIPPER Scheduled Procedures Name Priority Associated Diagnoses Date/Ti me LAPAROTOMY - ABDOMINAL WASHOUT Ischemia Intestinal With Stricture (HCC) 10/06/2023 9:04 AM DRYWALL STRIPPER documented as of this encounter Procedures Procedure Name Priority Date/Time Associated Diagnosis Comments TRANSFUSE RED BLOOD CELLS Routine 09/04/2023 5:59 PM DRYWALL STRIPPER Lymphoma Non Hodgkins (HCC) Anemia PREPARE RED BLOOD CELLS Routine 09/04/2023 3:16 PM DRYWALL STRIPPER Lymphoma Non Hodgkins (HCC) Anemia documented in this encounter Results * Transfuse Red Blood Cells : (09/04/2023 8:09 PM DRYWALL STRIPPER) Eliecer Vasquez APRNN.P., M.S.N. B LOOD TRANSFUSION ORDERABLES * Transfuse Red Blood Cells : , 1 Units (09/04/2023 8:09 PM DRYWALL STRIPPER) Lola Vasquez APRN.N.P., M.S.N. B LOOD TRANSFUSION ORDERABLES documented in this encounter Visit Diagnoses Diagnosis Lymphoma Non Hodgkins (HCC)- Primary Anemia Ischemia Intestinal With Stricture (HCC) documented in this encounter Administered Medications Inactive Administered Medications - up to 3 most recent administrations Medication Order MAR Action Action Date Dose Rate Site heparin flush 500 Units 500 Units, intra-catheter, As needed, line care, Starting on Sat09/04/23 at 1733, When no infusion to maintain patency: For IVAD accessed, not in use, and/or prior to hospital discharge, flush every 7 days after 0.9% preservative-free NaCL flush. For IVAD NOT accessed or used, flush every 4 weeks after 0.9% preservative-free NaCL flush. Given 09/04/2023 8:07 PM DRYWALL STRIPPER 500 Units NaCl 0.9% infusion 10-250 mL/hr, intravenous, As needed, Between Consecutive Piggyback Administrations, Starting on Sat09/04/23 at 1733, Infuse at the same rate as the piggyback until tubing clears or up to a volume of 20 mL. Select for IV medication administration when no maintenance IV available or when IV medications are not compatible with maintenance fluid. New Bag 09/04/2023 7:49 PM DRYWALL STRIPPER 180 mL/hr 180 mL/hr sodium chloride 0.9 % injection 10 mL 10 mL, intra-catheter, As needed, line care, Starting on Sat09/04/23 at 1733, When IVAD Accessed and in Use: Flush prior to and following infusion, between multiple consecutive infusions, and prior to blood sampling. Given 09/04/2023 8:07 PM DRYWALL STRIPPER 10 mL Given 09/04/2023 5:57 PM DRYWALL STRIPPER 10 mL documented in this encounter Additional Health Concerns Infection Onset Date Last Indicated Resolved Time Protective Environment 05/17/2023 05/17/2023 documented as of this encounter Care Teams Dance Professor Relationship Specialty Start Date End Date Elsewhere, Pcp PCP - General Internal Medicine 05/11/23 09/13/23 documented as of this encounter
--- OUTSIDE RECORDS SUMMARY | 2023-10-05 12:56 | XMS_ITS | Encounter Summary ---
Author Name Unknown Organization [facility] Address [address] [place] [address] Care Team Providers Care Application Assistant Name Role Phone Elsewhere, Pcp Primary Care Provider Unavailabl e Reason for Visit * Reason Onset Date Comments Pre-visit Intake 09/13/2023 Encounter Details Date Type Department Care Team (Latest Contact Info) Description 09/13/2023 12:45 PM STARTING SHEET TANK OPERATOR Clinical Communication Virtual Review in [place], [place] 200 [place] [address] Pre-visit Intake Social History Tobacco Use Types Packs/Day Years [...] any clubs o r organizations such as anabaptism groups, unions, fraternal or athletic groups, or [...] Answer Date Recorded PHQ-2 Score 0 04/25/2020 [facility] of Occupat ional Health - Occupational [...] place to sleep or slept in a snf (including now)? No 01/10/2023 Nutrition Answer Date [...] (Latest Contact Info) Description 10/06/2023 9:04 AM STARTING SHEET TANK OPERATOR - 10/06/2023 11:24 AM STARTING SHEET TANK OPERATOR Surgery [facility] MAIN OR [address] [place] [phone] Cameron Saenz M.D. [address] [place] [phone] ABDOMINAL EXPLORATION, REMOVAL ABTHERA, POSSBLE BOWEL RESECTION, PROCEED INDICATED 10/11/2023 7:00 AM STARTING SHEET TANK OPERATOR Appointment Department of Laboratory Medicine and Pathology, [facility], in [place], [place] [address] [place] [phone] Arti Epstein M.B.B.S. [address] [place] [phone] 10/11/2023 9:00 AM STARTING SHEET TANK OPERATOR Office Visit Division of Hematology in [place], [place] [address] [place] [phone] Arti Epstein M.B.B.S. [address] [place] [phone] 10/11/2023 10:00 AM STARTING SHEET TANK OPERATOR Infusion Department of Oncology in [place], [place] [address] [place] [phone] Bev Gifford APRN, C.N.P., M.S.N. [address] [place] [phone] 11/19/2023 10:00 AM CDT Office Visit Division of Endocrinology in [place], [place] [address] [place] [phone] West Mendoza APRN, C.N.P., M.S. [address] [place] [phone] 11/19/2023 2:30 PM CDT Comprehensive Visit Division of Hepatobiliary and Pancreas Surgery in [place], [place] [address] [place] [phone] Wesley Hamilton M.D. [address] [place] [phone] Scheduled Procedures Name Priority Associated Diagnoses Date/Ti me LAPAROTOMY - ABDOMINAL WASHOUT Ischemia Intestinal With Stricture (HCC) 10/06/2023 9:04 AM STARTING SHEET TANK OPERATOR documented as of this encounter Visit Diagnoses Not on filedocumented in this encounter Additional Health Concerns Infection Onset Date Last Indicated Resolved Time Protective Environment 05/17/2023 05/17/2023 documented as of this encounter Care Teams Application Assistant Relationship Specialty Start Date End Date Elsewhere, Pcp PCP - General Internal Medicine 05/11/23 09/13/23 documented as of this encounter
--- OUTSIDE RECORDS SUMMARY | 2023-10-05 12:56 | XMS_ITS | Encounter Summary ---
Author Name Unknown Organization [facility] Address [address] [place] [address] Care Team Providers Care Oncology Navigator Name Role Phone Elsewhere, Pcp Primary Care Provider Unavailabl e Encounter Details Date Type Department Care Team (Late st Contact Info) Description 09/17/2023 2:59 PM HOUSEKEEPING/LAUNDRY Anesthesia Event Division of Gastroenterology in [place], [place] [address] [place] [phone] Petty Garcia APRN, CRNA, MNA [address] [place] [phone] Stephen Sanchez M.D. [address] [place] [phone] Anesthesia Record Procedure Summary Procedure Name Responsible Anesthesiologist Anesthesia Start Time Anesthesia Stop Time EGD (ESOPHAGEALGASTRODU ODENOSCOPY) Petty Garcia APRN, CRNA, MNCrow 09/17/23 1459 09/17/23 1552 Events Date Time Event Comment 09/17/2023 1459 An Start Machine/Equipme nt Checked Infection Precautions Followed Procedure/Site Verified NPO Status Verified Supine Standard ASA Monitors Applied 1509 An Induction 1509 An Intubation 1515 Turnover to Proceduralist 1520 Proc Start 1535 Anes CS Handoff I, Aleks kruse, SAL MCKEE, attest that I have reconciled the controlled substances and that I have reviewed all the significant information with the next anesthesia provider assuming care of this patient. 1539 Turnover to ANE Staff 1540 Proc Fin 1544 Airway Removal Criteria Met 1544 Extubation/Airway Removed 1548 an stop data 1552 An End I completed my handoff to the receiving staff during which we 1. Identified the patient 2. Identified the responsible provider 3. Reviewed the pertinent medical history 4. Discussed the surgical course 5. Reviewed intra-op anesthesia management and issues during anesthesia 6. Set expectations for post-procedure period 7. Allowed opportunity for questions and acknowledgement of understanding. Meds Name Total fentanyl injection 50 mcg/mL 50 mcg lidocaine 2% (mg) injection 60 mg succinylcholine 20 mg/mL injection 140 m g phenylephrine 100 mcg/mL injection 100 m cg ondansetron 4 mg/2 mL injection 4 mg propofol 10 mg/mL infusion 152.46 mg Lactated Ringers Free Drip 300 mL * Agents No agents on file. [...] Left 08/07/23 0800 by Carolee Gonzalez, R.N. NG/OG Tube 09/14/23; 2236; Nasogastric; 18 Fr; 55 cm; Nare, Right; 09/17/23; 1520 09/14/23 2236 by Radha Roy, R.N. 09/17/23 1520 by Aleks Barrios APRN, CRNA Peripheral IV Placement Date: 09/16/23; Placement Time: 1816; Catheter Size: 20 G; Orientation: Anterior, Left, Lower, Proximal; Location: Forearm; Site Prep: Chlorhexidine (Preferred); Technique: Anatomical landmarks (2); Inserted by: SAULO; Insertion Attempts: 1; Removal Date: 09/18/23; Removal Time: 1916; Removal Reason: Other (Comment) (Painful) 09/16/231816 by Carisa Barahona, R.N. 09/18/23 1917 by Michelle Bates RJohannaN. Indwelling Urinary Catheter Placement Date: 09/17/23; Placement Time: 1143; Inserted by: ANDI ARAUZ; Type: Double-lumen, Latex; Size: 12 Fr.; Balloon Size: 10 mL; Urine Returned: Yes; Removal Date: 09/22/23; Removal Time: 1215; Removal Reason: Per order 09/17/23 1143 by Tu Saeed 09/22/23 1215 by Justus Iglesias R.N. ETT Placement Date: 09/17/23; Placement Time: 1509 (created via procedure documentation); Mask Ventilation: Not attempted; Technique: Video laryngoscopy; Type: Standard ETT; Single Lumen Tube Size: 7 mm; Cuffed: Yes; Location: Oral; Grade View: Grade 1; Insertion Attempts: 1; Placement Verification: Bilateral breath sounds, Positive ETCO2, Symmetrical chest wall movement; Removal Date: 09/17/23; Removal Time: 1544 09/17/23 1509 by Aleks Barrios APRN, DOBBY LOOMS PEGGER 09/17/23 1544 by Petty Garcia SUPERVISOR NEWSPAPER DELIVERIES, DOBBY LOOMS PEGGER, MNA NG/OG Tube 09/17/23; 1551; Gastrostomy-jejunostomy (23 gastric, 58 jejunum); 16 Fr; Nare, Left; Small bore (ENFit??); 09/27/23; 1230 09/17/23 1551 by Maria Eugenai Verdin, R.NJohanna 09/27/23 1230 by Alyson Cabral, R.N. documented in this encounter Social History Tobacco Use Types Packs/Day Years Used Date Smoking Tobacco: Former Cigarettes 1 22 Q uit: 02/07/1989 Passive Smoke Exposure: Never Smokeless Tobacco: Former Snuff, Chew Quit: 04/18/2023 Alcohol Use Standard Drinks/Week Comments Not Currently 3 (1 standard drink = 0.6 oz pur e alcohol) [facility] Utilities Answer Date Recorded In the past 12 months has e [employer], gas, oil, or water [employer] threatened to shut off services in your [...] often do you attend chur ch or tenriism services? Never 01/10/2023 Do you belong to [...] Answer Date Recorded PHQ-2 Score 0 04/25/2020 [facility] of Occupat ional Health - Occupational Stress [...] your living situation today? I have a [facility] place to live 09/15/2023 Education Answer [...] OR Notes * Anesthesia Postprocedure Evaluation - Petty Garcia, SUPERVISOR [employer]SP[employer]IVERIES, DOBBY LOOMS PEGGER, MNA - 09/17/2023 3:53 PM CST Patient: Hola Lau Procedure Summary Date: 09/17/23 Room / Location: Division of Gastroenterology in [place], [place] Anesthesia Start: 1459 Anesthesia Stop: 155 Procedure: EGD (ESOPHAGEALGASTRODUODENOSCOPY) Diagnosis: Scheduled Providers: Devang Rome M.B.B.S. Responsible Provider: Petty Garcia APRN, CRNA, MNA Anesthesia Type: general ASA Status: 4 Anesthesia Type: general Last vitals Vitals Value Taken Time BP 125/73 09/17/23 1552 Temp Pulse 83 09/17/23 1553 Resp 18 09/17/23 1553 SpO2 92 % 09/17/23 1553 Vitals shown include unfiled device data. Please reference Vitals flowsheet for most recent vital signs. Anesthesia Post Evaluation Patient Disposition: general care unit Cardiovascular status: hemodynamics (HR & BP) acceptable Respiratory status: patent airway with spontaneous effort Temperature: normothermic Oxygen requirements: room air Level of consciousness: awake Pain score: pain adequately controlled and/or at baseline Post Op nausea/vomiting: none Hydration status: euvolemic EKEEPING/LAUNDRY * Anesthesia Procedure Notes - Aleks Barrios APRN, CRNA - 09/17/2023 3:14 PM CSTAssociated Order(s): Airway Airway Date/Time: 09/17/2023 3:09 PM Performed by: Aleks Barrios APRN, CRNA Authorized by: Aleks Barrios APRN, CRNA Patient location during procedure: OR / Procedure Area PROCEDURE DETAILS: Mask difficulty assessment: not attempted Final airway type: video laryngoscope Laryngeal Manipulation: no Final best view of glottic structures - Cormack/Lehane Score: grade 1 ETT location: oral VL device: glide scope [place] scope blade size: 4 Tube size: 7 [...] anesthesia POST PROCEDURE DETAILS: Procedure outcome: successful EKEEPING/LAUNDRY * Anesthesia Preprocedure Evaluation - Stephen Sanchez M.D. - 09/17/2023 2:38 PM CST Preprocedure Anesthesia & H&P Assessment Procedure Summary Date/Time: 09/17/23 1415 Scheduled providers: Devang Rome M.B.B.S. Procedure: EGD (ESOPHAGEALGASTRODUODENOSCOPY) Location: Division of Gastroenterology in [place], [place] Pertinent components of the patient's history [...] Postsurgical HEME (+) Anemia (+) Thrombocytopenia (HCC) Digestive (+) Obstruction Intestinal (HCC) Sleep (+) Apnea Sleep Obstructive Other (+) Nicotine Dependence Chewing Tobacco (+) Obesity Body Mass Index 30-39.9 Adult OBJECTIVE PHYSICAL EXAMINATION Airway (HEENT) Mallampati: II TM Distance: >3 FB Neck ROM: Full Mouth Opening: >3 cm Cardiovascular Rhythm: Regular Cardiovascular Assessment: cardiovascular normal Pulmonary Pulmonary Assessment: Clear General / Constitutional Constitutional Assessment: Normal General State of Health:: ill appearing ASSESSMENT / PLAN ANESTHESIA PLAN ASA: 4 Anesthesia Plan: general RSI Patient seen and allergies reviewed, anesthesia plan and risks discussed directly with patient /legal guardian or through an front office medical assistant. Risks/Benefits/Alternatives of Blood transfusion discussed with patient / legal guardian, includingan opportunity to ask questions and/or decline some or all transfusion therapies. The patient / legal guardian consented to the use of all blood products, as deemed medically necessary Approval to Proceed: approved for anesthesia EKEEPING/LAUNDRY documented in this encounter Plan of Treatment Upcoming Encounters Date Type Department Care Team (Latest Contact Info) Description 10/06/2023 9:04 AM HOUSEKEEPING/LAUNDRY - 10/06/2023 11:24 AM HOUSEKEEPING/LAUNDRY Surgery [facility] MAIN OR [address] [place] [phone] Cameron Saenz M.D. [address] [place] [phone] ABDOMINAL EXPLORATION, REMOVAL ABTHERA, POSSBLE BOWEL RESECTION, PROCEED INDICATED 10/11/2023 7:00 AM HOUSEKEEPING/LAUNDRY Appointment [facility] in [place], [place] [address] [place] [phone] Arti Epstein M.B.B.S. [address] [place] [phone] 10/11/2023 9:00 AM HOUSEKEEPING/LAUNDRY Office Visit Division of Hematology in [address] [phone] Arti Epstein M.B.B.S. [address] [place] [phone] 10/11/2023 10:00 AM HOUSEKEEPING/LAUNDRY Infusion Department of Oncology in [address] [phone] Bev Gifford APRN, C.N.P., M.S.N. [address] [place] [phone] 11/19/2023 10:00 AM CDT Office Visit Division of Endocrinology in [address] [phone] West Mendoza APRN, C.N.P., M.S. [address] [place] [phone] 11/19/2023 2:30 PM CDT Comprehensive Visit Division of Hepatobiliary and Pancreas Surgery in [place], [place] [address] [place] [phone] Wesley Hamilton M.D. [address] [place] [phone] Scheduled Procedures Name Priority Associated Diagnoses Date/Ti me LAPAROTOMY - ABDOMINAL WASHOUT Ischemia Intestinal With Stricture (HCC) 10/06/2023 9:04 AM HOUSEKEEPING/LAUNDRY documented as of this encounter Procedures Procedure Name Priority Date/Time Associated Diagnosis Comments LDA ANE ENDOTRACHEAL AIRWAY Routine 09/17/2023 3:09 PM HOUSEKEEPING/LAUNDRY documented in this encounter Results * LDA ANE ENDOTRACHEAL AIRWAY (09/17/2023 3:09 PM HOUSEKEEPING/LAUNDRY) Narrative Aleks Barrios APRN, CRNA - 09/17/2023 3:09 PM HOUSEKEEPING/LAUNDRY Aleks Barrios APRN, CRNA ? 09/17/2023 ??3:15 [...] ETT location: oral VL device: glide scope [place] scope blade size: 4 Tube size: 7 [...] Aleks Barrios APRN, CRNA ANESTHESIA ORDER ANABELL documented in this encounter Visit Diagnoses Not on filedocumented in this encounter Administered Medications Inactive Administered Medications - up to 3 most recent administrations Medication Order MAR Action Action Date Dose Rate Site fentaNYL injection (SUBLIMAZE) intravenous, As needed, Starting on Sat09/17/23 at 1507, Anesthesia Intra-op Given 09/17/2023 3:07 PM HOUSEKEEPING/LAUNDRY 50 mcg Lactated Ringer's intravenous, Continuous Infusion: Per Instructions PRN, Starting on Sat09/17/23 at 1459, Anesthesia Intra-op New Bag 09/17/2023 2:59 PM HOUSEKEEPING/LAUNDRY lidocaine (PF) (cardiac) injection intravenous, As needed, Starting on Sat09/17/23 at 1507, Anesthesia Intra-op Given 09/17/2023 3:07 PM HOUSEKEEPING/LAUNDRY 60 mg ondansetron (PF) injection (ZOFRAN) intravenous, As needed, Starting on Sat09/17/23 at 1507, Anesthesia Intra-op Given 09/17/2023 3:07 PM HOUSEKEEPING/LAUNDRY 4 mg phenylephrine injection intravenous, As needed, Starting on Sat09/17/23 at 1537, Anesthesia Intra-op Given 09/17/2023 3:37 PM HOUSEKEEPING/LAUNDRY 100 mcg propofol 10 mg/mL infusion (DIPRIVAN) intravenous, Continuous Infusion: Per Instructions PRN, Starting on Sat09/17/23 at 1507, Anesthesia Intra-op Rate/Dose Change 09/17/2023 3:09 PM HOUSEKEEPING/LAUNDRY 70 mcg/kg/min 30.786 mL/hr New Bag 09/17/2023 3:07 PM HOUSEKEEPING/LAUNDRY 200 mcg/kg/min 87.96 mL/ hr succinylcholine (PF) injection (ANECTINE) intravenous, As needed, Starting on Sat09/17/23 at 1507, Anesthesia Intra-op Given 09/17/2023 3:07 PM HOUSEKEEPING/LAUNDRY 140 mg documented in this encounter Additional Health Concerns Infection Onset Date Last Indicated Resolved Time Protective Environment 05/17/2023 05/17/2023 documented as of this encounter Care Teams Oncology Navigator Relationship Specialty Start Date End Date Elsewhere, Pcp PCP - General Internal Medicine 09/14/23 documented as of this encounter
--- OUTSIDE RECORDS SUMMARY | 2023-10-05 12:56 | XMS_ITS | Encounter Summary ---
Author Name Unknown Organization [facility] Address [address] [place] [address] Care Team Providers Care Brewery Representative Name Role Phone Elsewhere, Pcp Primary Care Provider Unavailabl e Reason for Visit * Reason Onset Date Comments EST HEM LYMPH CHEMO 09/16/23 09/04/2023 Encounter Details Date Type Department Care Team (Latest Contact Info) Description 09/04/2023 Clinical Communication Division of Hematology in [place], [place] [address] [place] [phone] Hola Claudio M.D. [address] [place] [phone] EST HEM LYMPH CHEMO 09/16/23 Social History Tobacco Use Types Packs/Day Years Used Date Smoking Tobacco: Former Cigarettes 1 22 Q uit: 02/07/1989 Passive Smoke Exposure: Never Smokeless Tobacco: Former Snuff, Chew Quit: 04/18/2023 Alcohol Use Standard Drinks/Week Comments Not Currently 3 (1 standard drink = 0.6 oz pur e alcohol) [facility] Utilities Answer Date Recorded In the [...] often do you attend chur ch or christianity services? Never 01/10/2023 Do you belong to any clubs o r organizations such as congregation groups, unions, fraternal or athletic groups, or [...] Answer Date Recorded PHQ-2 Score 0 04/25/2020 [facility] [place] of Occupat ional Health - Occupational Stress [...] your living situation today? I have a [facility] place to live 09/15/2023 Education [...] (Latest Contact Info) Description 10/06/2023 9:04 AM BIODIESEL PLANT OPERATIONS ENGINEER - 10/06/2023 11:24 AM BIODIESEL PLANT OPERATIONS ENGINEER Surgery RST ROMB MAIN OR [address] [place] [phone] Cameron Saenz M.D. [address] [place] [phone] ABDOMINAL EXPLORATION, REMOVAL ABTHERA, POSSBLE BOWEL RESECTION, PROCEED INDICATED 10/11/2023 7:00 AM BIODIESEL PLANT OPERATIONS ENGINEER Appointment Department of Laboratory Medicine and Pathology, [facility], in [place], [place] [address] [place] [phone] Arti Epstein M.B.B.S. [address] [place] [phone] 10/11/2023 9:00 AM BIODIESEL PLANT OPERATIONS ENGINEER Office Visit Division of Hematology in [place], [place] [address] [place] [phone] Arti Epstein M.B.B.S. [address] [place] [phone] 10/11/2023 10:00 AM BIODIESEL PLANT OPERATIONS ENGINEER Infusion Department of Oncology in [place], [place] [address] [place] [phone] Bev Gifford APRN, C.N.P., M.S.N. [address] [place] [phone] 11/19/2023 10:00 AM CDT Office Visit Division of Endocrinology in [place], [place] [address] [place] [phone] West Mendoza APRN C.N.P., M.S. [address] [place] [phone] 11/19/2023 2:30 PM CDT Comprehensive Visit Division of Hepatobiliary and Pancreas Surgery in [place], [place] [address] [place] [phone] Wesley Hamilton M.D. [address] [place] [phone] Scheduled Procedures Name Priority Associated Diagnoses Date/Ti me LAPAROTOMY - ABDOMINAL WASHOUT Ischemia Intestinal With Stricture (HCC) 10/06/2023 9:04 AM BIODIESEL PLANT OPERATIONS ENGINEER documented as of this encounter Visit Diagnoses Not on filedocumented in this encounter Additional Health Concerns Infection Onset Date Last Indicated Resolved Time Protective Environment 05/17/2023 05/17/2023 COVID19 Pending 09/14/2023 09/14/2023 09/14/2023 8 :59 PM BIODIESEL PLANT OPERATIONS ENGINEER documented as of this encounter Care Teams Brewery Representative Relationship Specialty Start Date End Date Elsewhere, Pcp PCP - General Internal Medicine 09/14/23 documented as of this encounter
--- OUTSIDE RECORDS SUMMARY | 2023-10-05 12:56 | XMS_ITS | Encounter Summary ---
Author Name Unknown Organization [facility] Address [address] [place] [address] Care Team Providers Care Pattern Hanger Name Role Phone Elsewhere, Pcp Primary Care Provider Unavailabl e Reason for Visit * Reason Comments Med Refill Levothyroxine Encounter Details Date Type Department Care Team (Late st Contact Info) Description 09/11/2023 Refill Division of Endocrinology in [place], [place] [address] [place] [phone] Rosemarie Dutton, RYLEE, C.N.P., M.S. [address] [place] [phone] Med Refill (Levothyroxine) Social History Tobacco Use Types Packs/Day Years [...] any clubs o r organizations such as spiritism groups, unions, fraternal or athletic groups, or [...] Answer Date Recorded PHQ-2 Score 0 04/25/2020 [facility] [place] of Occupat ional Health - Occupational Stress [...] place to sleep or slept in a alf (including now)? No 01/10/2023 Nutrition Answer Date [...] (Latest Contact Info) Description 10/06/2023 9:04 AM SEWER CONTRACTOR - 10/06/2023 11:24 AM SEWER CONTRACTOR Surgery [facility]ST ROM[facility] MAIN OR [address] [place] [phone] Cameron Saenz M.D. [address] [place] [phone] ABDOMINAL EXPLORATION, REMOVAL ABTHERA, POSSBLE BOWEL RESECTION, PROCEED INDICATED 10/11/2023 7:00 AM SEWER CONTRACTOR Appointment Department of Laboratory Medicine and Pathology, [facility], in [place], [place] [address] [place] [phone] Arti Epstein M.B.B.S. [address] [place] [phone] 10/11/2023 9:00 AM SEWER CONTRACTOR Office Visit Division of Hematology in [place], [place] [address] [place] [phone] Arti Epstein M.B.B.S. [address] [place] [phone] 10/11/2023 10:00 AM SEWER CONTRACTOR Infusion Department of Oncology in [place], [place] [address] [place] [phone] Bev Gifford APRN, C.N.P., M.S.N. [address] [place] [phone] 11/19/2023 10:00 AM CDT Office Visit Division of Endocrinology in [place], [place] [address] [place] [phone] West Mendoza APRN, C.N.P., M.S. [address] [place] [phone] 11/19/2023 2:30 PM CDT Comprehensive Visit Division of Hepatobiliary and Pancreas Surgery in [place], [place] [address] [place] [phone] Wesley Hamilton M.D. [address] [place] [address] [place] [phone] Scheduled Procedures Name Priority Associated Diagnoses Date/Ti me LAPAROTOMY - ABDOMINAL WASHOUT Ischemia Intestinal With Stricture (HCC) 10/06/2023 9:04 AM SEWER CONTRACTOR documented as of this encounter Visit Diagnoses Not on filedocumented in this encounter Additional Health Concerns Infection Onset Date Last Indicated Resolved Time Protective Environment 05/17/2023 05/17/2023 documented as of this encounter Care Teams Pattern Hanger Relationship Specialty Start Date End Date Elsewhere, Pcp PCP - General Internal Medicine 05/11/23 09/13/23 documented as of this encounter
--- OUTSIDE RECORDS SUMMARY | 2023-10-05 12:56 | XMS_ITS | Encounter Summary ---
Author Name Unknown Organization [facility] Address [address] [place] [address] Care Team Providers Care Punchboard Filling Machine Operator Name Role Phone Elsewhere, Pcp Primary Care Provider Unavailabl e Encounter Details Date Type Department Care Team (Late st Contact Info) Description 09/11/2023 Orders Only Department of Endocrinology in [address] [phone] Rosemarie Dutton, RYLEE, C.N.P., M.S. [address] [place] [phone] Social History Tobacco Use Types Packs/Day Years Used Date Smoking Tobacco: Former Cigarettes 1 22 Q uit: 02/07/1989 Passive Smoke Exposure: Never Smokeless Tobacco: Former Snuff, Chew Quit: 04/18/2023 Alcohol Use Standard Drinks/Week Comments Not Currently 3 (1 standard drink = 0.6 oz pur e alcohol) [facility] Utilities Answer Date Recorded In [...] often do you attend chur ch or yarsanism services? Never 01/10/2023 Do you belong to any clubs o r organizations such as alevism groups, unions, fraternal or athletic groups, or [...] Answer Date Recorded PHQ-2 Score 0 04/25/2020 [facility] [place] of Occupat ional Health - Occupational Stress [...] your living situation today? I have a [facility] place to live 09/15/2023 Education Answer [...] (Latest Contact Info) Description 10/06/2023 9:04 AM FAMILY LIFE EDUCATOR - 10/06/2023 11:24 AM FAMILY LIFE EDUCATOR Surgery RST ROMB MAIN OR [address] [place] [phone] Cameron Saenz M.D. [address] [place] [address] ABDOMINAL EXPLORATION, REMOVAL ABTHERA, POSSBLE BOWEL RESECTION, PROCEED INDICATED 10/11/2023 7:00 AM FAMILY LIFE EDUCATOR Appointment Department of Laboratory Medicine and Pathology, [facility], in [place], [place] [address] [place] [phone] Arti Epstein M.B.B.S. [address] [place] [phone] 10/11/2023 9:00 AM FAMILY LIFE EDUCATOR Office Visit Division of Hematology in [place], [place] [address] [place] [phone] Arti Epstein M.B.B.S. [address] [place] [phone] 10/11/2023 10:00 AM FAMILY LIFE EDUCATOR Infusion Department of Oncology in [place], [place] [address] [place] [phone] Bev Gifford APRN, C.N.P., M.S.N. [address] [place] [phone] 11/19/2023 10:00 AM CDT Office Visit Division of Endocrinology in [address] [phone] West Mendoza APRN, C.N.P., M.S. [address] [place] [phone] 11/19/2023 2:30 PM CDT Comprehensive Visit Division of Hepatobiliary and Pancreas Surgery in [address] [phone] Wesley Hamilton M.D. [address] [place] [phone] Scheduled Procedures Name Priority Associated Diagnoses Date/Ti me LAPAROTOMY - ABDOMINAL WASHOUT Ischemia Intestinal With Stricture (HCC) 10/06/2023 9:04 AM FAMILY LIFE EDUCATOR documented as of this encounter Visit Diagnoses Not on filedocumented in this encounter Additional Health Concerns Infection Onset Date Last Indicated Resolved Time Protective Environment 05/17/2023 05/17/2023 COVID19 Pending 09/14/2023 09/14/2023 09/14/2023 8 :59 PM FAMILY LIFE EDUCATOR documented as of this encounter Care Teams Punchboard Filling Machine Operator Relationship Specialty Start Date End Date Elsewhere, Pcp PCP - General Internal Medicine 09/14/23 documented as of this encounter
--- OUTSIDE RECORDS SUMMARY | 2023-10-05 12:56 | XMS_ITS | Encounter Summary ---
Author Name Unknown Organization [facility] Address [address] [place] [address] Care Team Providers Care Drug Department Worker Name Role Phone Elsewhere, Pcp Primary Care Provider Unavailabl e Encounter Details Date Type Department Care Team ([facility] st Contact Info) Description 09/04/2023 Clinical Communication Division of Hematology in [place], [place] [address] [place] [phone] Bev Gifford APRN, C.N.P., M.S.N. [address] [place] [phone] Social History Tobacco Use Types Packs/Day Years [...] How often do you attend chur or christianity services? Never 01/10/2023 Do you belong to any clubs o r organizations such as bahai groups, unions, fraternal or athletic groups, or [...] Answer Date Recorded PHQ-2 Score 0 04/25/2020 [facility] of Occupat ional Health - [...] place to sleep or slept in a penitentiary (including now)? No 01/10/2023 Nutrition Answer Date [...] PM CDT documented as of this encounter Miscellaneous Notes * Telephone Encounter - Rosemarie Ro, R.N. - 09/04/2023 1:51 PM TWISTING OPERATOR One unit RBC today per Rocio Gifford APRN, WOOD PANEL INSPECTOR. - Hgb 7.2 - patient short of breath - Preston-R-CHP C6 delayed until 09/16/2023 per Rocio due to active toe infection--has Keflex & willstart taking it TING OPERATOR documented in this encounter Plan of Treatment Upcoming Encounters Date Type Department Care Team (Latest Contact Info) Description 10/06/2023 9:04 AM TWISTING OPERATOR - 10/06/2023 11:24 AM TWISTING OPERATOR Surgery RST ROMB MAIN OR [address] [place] [phone] Cameron Saenz M.D. [address] [place] [phone] ABDOMINAL EXPLORATION, REMOVAL ABTHERA, POSSBLE BOWEL RESECTION, PROCEED INDICATED 10/11/2023 7:00 AM TWISTING OPERATOR Appointment Department of Laboratory Medicine and Pathology, [facility], in [place], [place] [address] [place] [phone] Arti Epstein M.B.B.S. [address] [place] [phone] 10/11/2023 9:00 AM TWISTING OPERATOR Office Visit Division of Hematology in [address] [phone] Arti Epstein M.B.B.S. [address] [place] [phone] 10/11/2023 10:00 AM TWISTING OPERATOR Infusion Department of Oncology in [place], [place] [address] [place] [phone] Bev Gifford APRN, C.N.P., M.S.N. [address] [place] [phone] 11/19/2023 10:00 AM CDT Office Visit Division of Endocrinology in [place], [place] [address] [place] [phone] West Mendoza APRN, C.N.P., M.S. [address] [place] [phone] 11/19/2023 2:30 PM CDT Comprehensive Visit Division of Hepatobiliary and Pancreas Surgery in [place], [place] [address] [place] [phone] Wesley Hamilton M.D. [address] [place] [phone] Scheduled Procedures Name Priority Associated Diagnoses Date/Ti me LAPAROTOMY - ABDOMINAL WASHOUT Ischemia Intestinal With Stricture (HCC) 10/06/2023 9:04 AM TWISTING OPERATOR documented as of this encounter Results * Type and Screen (with Reflex Antibody ID) (09/04/2023 3:16 PM TWISTING OPERATOR) Pathologist [facility] ABOR See Addl Testing Not applicable 09/04/2023 5:08 PM TWISTING OPERATOR ETRM Antibody Screen Negative Negative 09/04/2023 4:14 PM TWISTING OPERATOR ETRM Type & Screen Expiration 09/07/2023 23:59 09/04/2023 4:14 PM TWISTING OPERATOR ETRM Testing Location Lisa DEFAULT 09/04/2023 3:39 PM TWISTING OPERATOR ETRM Blood (Blood, Venous) 09/04/2023 3:16 PM TWISTING OPERATOR 09/04/2023 3:39 PM TWISTING OPERATOR Lola Vasquez APRN.N.P., M.S.N. L AB BLOOD BANK TEST ORDERABLES [facility] [address] [place] [address], [facility] ETRM [facility] 200 [place] [address] documented in this encounter Visit Diagnoses Diagnosis Lymphoma Non Hodgkins (HCC)- Primary Anemia Ischemia Intestinal With Stricture (HCC) documented in this encounter Additional Health Concerns Infection Onset Date Last Indicated Resolved Time Protective Environment 05/17/2023 05/17/2023 documented as of this encounter Care Teams Drug Department Worker Relationship Specialty Start Date End Date Elsewhere, Pcp PCP - General Internal Medicine 05/11/23 09/13/23 documented as of this encounter
--- OUTSIDE RECORDS SUMMARY | 2023-10-05 12:56 | XMS_ITS | Encounter Summary ---
Author Name Unknown Organization [facility] Address [address] [place] [address] Care Team Providers Care Strategic Analyst Name Role Phone Elsewhere, Pcp Primary Care Provider Unavailabl e Encounter Details Date Type Department Care Team ([facility] st Contact Info) Description 09/04/2023 Orders Only Division of Hematology in [place], [place] [address] [place] [phone] Bev Gifford APRN, C.N.P., M.S.N. [address] [place] [phone] Lymphoma Non Hodgkins (HCC) (Primary Dx); Anemia [...] How often do you attend chur or spiritism services? Never 01/10/2023 Do you belong to any clubs o r organizations such as orthodox groups, unions, fraternal or athletic groups, or [...] Answer Date Recorded PHQ-2 Score 0 04/25/2020 [facility] of Occupat ional Health - Occupational Stress [...] money to buy more. Never true 01/11/20 Within the past 12 months, t he [...] place to sleep or slept in a [place] [facility] facility (including now)? No 01/10/2023 Nutrition Answer Date [...] (Latest Contact Info) Description 10/06/2023 9:04 AM EVENT SPECIALIST PRODUCT DEMONSTRATOR - 10/06/2023 11:24 AM EVENT SPECIALIST PRODUCT DEMONSTRATOR Surgery RST ROMB MAIN OR [address] [place] [phone] Cameron Saenz M.D. [address] [place] [phone] ABDOMINAL EXPLORATION, REMOVAL ABTHERA, POSSBLE BOWEL RESECTION, PROCEED INDICATED 10/11/2023 7:00 AM EVENT SPECIALIST PRODUCT DEMONSTRATOR Appointment Department of Laboratory Medicine and Pathology, [facility], in [place], [place] [address] [place] [phone] Arti Epstein M.B.B.S. [address] [place] [phone] 10/11/2023 9:00 AM EVENT SPECIALIST PRODUCT DEMONSTRATOR Office Visit Division of Hematology in [place], [place] [address] [place] [phone] Arti Epstein M.B.B.S. [address] [place] [phone] 10/11/2023 10:00 AM EVENT SPECIALIST PRODUCT DEMONSTRATOR Infusion Department of Oncology in [place], [place] [address] [place] [phone] Bev Gifford APRN, C.N.P., M.S.N. [address] [place] [phone] 11/19/2023 10:00 AM CDT Office Visit Division of Endocrinology in [place], [place] [address] [place] [phone] West Mendoza APRN, C.N.P., M.S. [address] [place] [phone] 11/19/2023 2:30 PM CDT Comprehensive Visit Division of Hepatobiliary and Pancreas Surgery in [place], [place] [address] [place] [phone] Wesley Hamilton M.D. [address] [place] [phone] Scheduled Procedures Name Priority Associated Diagnoses Date/Ti me LAPAROTOMY - ABDOMINAL WASHOUT Ischemia Intestinal With Stricture (HCC) 10/06/2023 9:04 AM EVENT SPECIALIST PRODUCT DEMONSTRATOR documented as of this encounter Visit Diagnoses Diagnosis Lymphoma Non Hodgkins (HCC)- Primary Anemia Ischemia Intestinal With Stricture (HCC) documented in this encounter Additional Health Concerns Infection Onset Date Last Indicated Resolved Time Protective Environment 05/17/2023 05/17/2023 documented as of this encounter Care Teams Strategic Analyst Relationship Specialty Start Date End Date Elsewhere, Pcp PCP - General Internal Medicine 05/11/23 09/13/23 documented as of this encounter
--- OUTSIDE RECORDS SUMMARY | 2023-10-05 12:56 | XMS_ITS | Encounter Summary ---
Author Name Unknown Organization [facility] Address [address] [place] [address] Care Team Providers Care Raw Stock Dyeing Machine Tender Name Role Phone Elsewhere, Pcp Primary Care Provider Unavailabl e Encounter Details Date Type Department Care Team (Late st Contact Info) Description 09/17/2023 Orders Only Department of Radiology, [facility], in [place], [place] [address] [place] [phone] Kye Lunsford [address] [place] [phone] Social History Tobacco Use Types Packs/Day Years Used Date Smoking Tobacco: Former Cigarettes 1 22 Q uit: 02/07/1989 Passive Smoke Exposure: Never Smokeless Tobacco: Former Snuff, Chew Quit: 04/18/2023 Alcohol Use Standard Drinks/Week Comments Not Currently 3 (1 standard drink = 0.6 oz pur e alcohol) [facility] Utilities Answer Date Recorded In the past 12 months has [place], gas, oil, or water [employer] threatened to shut off services in your [...] often do you attend chur ch or hinduism services? Never 01/10/2023 Do you belong to [...] Answer Date Recorded PHQ-2 Score 0 04/25/2020 [facility] of Occupat ional Health - Occupational Stress [...] your living situation today? I have a [facility] place to live 09/15/2023 Education [...] (Latest Contact Info) Description 10/06/2023 9:04 AM MARINE STRUCTURAL WELDER - 10/06/2023 11:24 AM MARINE STRUCTURAL WELDER Surgery RST ROMB MAIN OR [address] [place] [phone] Cameron Saenz M.D. [address] [place] [phone] ABDOMINAL EXPLORATION, REMOVAL ABTHERA, POSSBLE BOWEL RESECTION, PROCEED INDICATED 10/11/2023 7:00 AM MARINE STRUCTURAL WELDER Appointment Department of Laboratory Medicine and Pathology, [facility], in [place], [place] [address] [place] [phone] Arti Epstein M.B.B.S. [address] [place] [phone] 10/11/2023 9:00 AM MARINE STRUCTURAL WELDER Office Visit Division of Hematology in [place], [place] [address] [place] [phone] Arti Epstein M.B.B.S. [address] [place] [phone] 10/11/2023 10:00 AM MARINE STRUCTURAL WELDER Infusion Department of Oncology in [place], [place] [address] [place] [phone] Bev Gifford APRN, C.N.P., M.S.N. [address] [place] [phone] 11/19/2023 10:00 AM CDT Office Visit Division of Endocrinology in [place], [place] [address] [place] [phone] West Mendoza APRN, C.N.P., M.S. [address] [place] [phone] 11/19/2023 2:30 PM CDT Comprehensive Visit Division of Hepatobiliary and Pancreas Surgery in [place], [place] [address] [place] [phone] Wesley Hamilton M.D. [address] [place] [phone] Scheduled Procedures Name Priority Associated Diagnoses Date/Ti me LAPAROTOMY - ABDOMINAL WASHOUT Ischemia Intestinal With Stricture (HCC) 10/06/2023 9:04 AM MARINE STRUCTURAL WELDER documented as of this encounter Visit Diagnoses Not on filedocumented in this encounter Additional Health Concerns Infection Onset Date Last Indicated Resolved Time Protective Environment 05/17/2023 05/17/2023 documented as of this encounter Care Teams Raw Stock Dyeing Machine Tender Relationship Specialty Start Date End Date Elsewhere, Pcp PCP - General Internal Medicine 09/14/23 documented as of this encounter
--- OUTSIDE RECORDS SUMMARY | 2023-10-05 12:56 | XMS_ITS | Encounter Summary ---
Author Name Unknown Organization [facility] Address [address] [place] [phone] Care Team Providers Care Public Safety Director Name Role Phone Elsewhere, Pcp Primary Care Provider Unavailabl e Reason for Visit * Episode Based Medications (Routine) - Authorized Specialty Diagnoses / Procedures Referred By Contac t Referred To Contact Diagnoses Lymphoma Non Hodgkins (HCC) Procedures X Molly Jarquin M.B.BJohannaSJohanna, MBeny [address] [place] [address] [address] [place] [address] [place] [phone] Referral ID Status Reason Start Date Expiration Date V isits Requested Visits Authorized [id number] Authorized 05/17/2023 05/16/2025 99 99 Encounter Details Date Type Department Care Team (Late st Contact Info) Description 09/04/2023 10:40 AM SUPERVISOR ENROBING Lab Department of Infusion Therapy in [place], [place] [address] [place] [phone] Garcia Flores M.D., Ph.D. [address] [place] [phone] Lymphoma Non Hodgkins (HCC) (Primary Dx) Social History Tobacco Use Types [...] often do you attend chur ch or pentecostalism services? Never 01/10/2023 Do you belong to any clubs o r organizations such as caodaism groups, unions, fraternal or athletic groups, or [...] Answer Date Recorded PHQ-2 Score 0 04/25/2020 [facility] - Occupational Stress Questionnaire Answer Date [...] place to sleep or slept in a longterm (including now)? No 01/10/2023 Nutrition Answer Date [...] (Latest Contact Info) Description 10/06/2023 9:04 AM SUPERVISOR ENROBING - 10/06/2023 11:24 AM SUPERVISOR ENROBING Surgery RST ROMB MAIN OR [address] [place] [phone] Cameron Saenz M.D. [address] [place] [phone] ABDOMINAL EXPLORATION, REMOVAL ABTHERA, POSSBLE BOWEL RESECTION, PROCEED INDICATED 10/11/2023 7:00 AM SUPERVISOR ENROBING Appointment Department of Laboratory Medicine and Pathology, [facility] in [address] [phone] Arti Epstein M.B.B.S. [address] [place] [phone] 10/11/2023 9:00 AM SUPERVISOR ENROBING Office Visit Division of Hematology in [address] [phone] Arti Epstein M.B.B.S. [address] [place] [phone] 10/11/2023 10:00 AM SUPERVISOR ENROBING Infusion Department of Oncology in [address] [phone] Bev Gifford APRN, C.N.P., M.S.N. [address] [place] [phone] 11/19/2023 10:00 AM CDT Office Visit Division of Endocrinology in [place], [place] [address] [place] [phone] West Mendoza APRN, C.N.P., M.S. [address] [place] [phone] 11/19/2023 2:30 PM CDT Comprehensive Visit Division of Hepatobiliary and Pancreas Surgery in [place], [place] [address] [place] [phone] Wesley Hamilton M.D. [address] [place] [phone] Scheduled Procedures Name Priority Associated Diagnoses Date/Ti me LAPAROTOMY - ABDOMINAL WASHOUT Ischemia Intestinal With Stricture (HCC) 10/06/2023 9:04 AM SUPERVISOR ENROBING documented as of this encounter Procedures Procedure Name Priority Date/Time Associated Diagnosis Comments CBC WITH DIFFERENTIAL, B Routine 09/04/2023 10:14 AM SUPERVISOR ENROBING Lymphoma Non Hodgkins (HCC) COMPREHENSIVE METABOLIC PANEL, S/P Routine 09/04/2023 10:13 AM SUPERVISOR ENROBING Lymphoma Non Hodgkins (HCC) documented in this encounter Results * (ABNORMAL) CBC with Differential, Blood (09/04/2023 10:14 AM SUPERVISOR ENROBING) Hemoglobin 7.2(L) 13.2 - 16.6 g/dL 09/04/2023 10:36 AM SUPERVISOR ENROBING DTL Hematocrit 22.7(L) 38.3 - 48.6 % 09/04/2023 10:36 AM SUPERVISOR ENROBING DTL Erythrocytes 2.39(L) 4.35 - 5.65 x10(12)/L 09/04/2023 10:36 AM SUPERVISOR ENROBING DTL MCV 95.0 78.2 - 97.9 fL 09/04/2023 10:36 AM SUPERVISOR ENROBING DTL RBC Distrib Width 20.5(H) 11.8 - 14.5 % 09/04/2023 10:36 AM SUPERVISOR ENROBING DTL Platelet Count 222 135 - 317 x10(9)/L 09/04/2023 10:36 AM SUPERVISOR ENROBING DTL Leukocytes 8.1 3.4 - 9.6 x10(9)/L 09/04/2023 10:36 AM SUPERVISOR ENROBING DTL Neutrophils 7.03(H) 1.56 - 6.45 x10(9)/L 09/04/2023 10:36 AM SUPERVISOR ENROBING DHPM Lymphocytes 0.30(L) 0.95 - 3.07 x10(9)/L 09/04/2023 10:36 AM SUPERVISOR ENROBING DTL Monocytes 0.57 0.26 - 0.81 x10(9)/L 09/04/2023 10:36 AM SUPERVISOR ENROBING DTL Eosinophils 0.13 0.03 - 0.48 x10(9)/L 09/04/2023 10:36 AM SUPERVISOR ENROBING DTL Basophils 0.05 0.01 - 0.08 x10(9)/L 09/04/2023 10:36 AM SUPERVISOR ENROBING DTL Blood (Blood, Venous) 09/04/2023 10:14 AM SUPERVISOR ENROBING 09/04/2023 10:26 AM SUPERVISOR ENROBING Garcia Flores M.D., Ph.D. LAB BLOOD A DD-ON [facility] [address] [place] [address], [facility] [[email or web address]] DTL [facility] [address] [place] [address] [facility] [address] [place] [address] * (ABNORMAL) Comprehensive Metabolic Panel (09/04/2023 10:13 AM SUPERVISOR ENROBING) [facility] Potassium, S 3.5(L) 3.6 - 5.2 mmol/L 09/04/2023 11:01 AM SUPERVISOR ENROBING DTL Sodium, S 138 135 - 145 mmol/L 09/04/2023 11:01 AM SUPERVISOR ENROBING DTL Chloride, S 104 98 - 107 mmol/L 09/04/2023 11:01 AM SUPERVISOR ENROBING DTL Bicarbonate, S 26 22 - 29 mmol/L 09/04/2023 11:01 AM SUPERVISOR ENROBING DTL Anion Gap 8 7 - 15 09/04/2023 11:01 AM SUPERVISOR ENROBING DTL BUN (Blood Urea Nitrogen), S 17 8 - 24 mg/dL 09/04/2023 11:01 AM SUPERVISOR ENROBING DTL Creatinine 0.75 0.74 - 1.35 mg/dL 09/04/2023 11:01 AM SUPERVISOR ENROBING DTL Estimated GFR (eGFR) >90 >=60 mL/min/BS A 09/04/2023 11:01 AM SUPERVISOR ENROBING DTL Comment: Estimated GFR calculated using the 2020 CKD_EPI creatinine equation. Calcium, Total, S 7.9(L) 8.8 - 10.2 mg/dL 09/04/2023 11:01 AM SUPERVISOR ENROBING DTL Glucose, S 90 70 - 140 mg/dL 09/04/2023 11:01 AM SUPERVISOR ENROBING DTL Protein, Total, S 4.7(L) 6.3 - 7.9 g/dL 09/04/2023 11:01 AM SUPERVISOR ENROBING DTL Albumin, S 3.1(L) 3.5 - 5.0 g/dL 09/04/2023 11:01 AM SUPERVISOR ENROBING DTL Aspartate Aminotransferase (AST), S 29 8 - 48 U/L 09/04/2023 11:01 AM SUPERVISOR ENROBING DTL Alkaline Phosphatase, S 173(H) 40 - 129 U/L 09/04/2023 11:01 AM SUPERVISOR ENROBING DTL Alanine Aminotransferase (ALT), S 18 7 - 55 U/L 09/04/2023 11:01 AM SUPERVISOR ENROBING DTL Bilirubin, Total, S 0.3 0.0 - 1.2 mg/dL 09/04/2023 11:01 AM SUPERVISOR ENROBING DTL Blood (Blood, Venous) 09/04/2023 10:13 AM SUPERVISOR ENROBING 09/04/2023 10:39 AM SUPERVISOR ENROBING Garcia Flores M.D., Ph.D. 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 For IVAD NOT accessed or used, flush every 4 weeks after 0.9% preservative-free NaCL flush. Given 09/04/2023 10:17 AM SUPERVISOR ENROBING 500 Units sodium chloride 0.9 % injection 10 mL 10 mL, intra-catheter, As needed, line care, Starting on 09/04/23 at 1003, When IVAD Accessed and in Use: Flush prior to and following infusion, between multiple consecutive infusions, and prior to blood sampling. Given 09/04/2023 10:15 AM SUPERVISOR ENROBING 10 mL sodium chloride 0.9 % injection 20 mL 20 mL, intra-catheter, As needed, line care, Starting on 09/04/23 at 1003, When IVAD Accessed and in Use: Flush post blood transfusion or post blood sampling. Given 09/04/2023 10:17 AM SUPERVISOR ENROBING 20 mL documented in this encounter Additional Health Concerns Infection Onset Date Last Indicated Resolved Time Protective Environment 05/17/2023 05/17/2023 documented as of this encounter Care Teams Public Safety Director Relationship Specialty Start Date End Date Elsewhere, Pcp PCP - General Internal Medicine 05/11/23 09/13/23 documented as of this encounter
--- OUTSIDE RECORDS SUMMARY | 2023-10-05 12:56 | XMS_ITS | Encounter Summary ---
Author Name Unknown Organization [facility] Address [address] [place] [address] Care Team Providers Care Filling Winder Name Role Phone Elsewhere, Pcp Primary Care Provider Unavailabl e Encounter Details Date Type Department Care Team (Late st Contact Info) Description 09/10/2023 7:[address] JUDGE Lab Department of Laboratory Medicine and Pathology, [facility], in [place], [place] [address] [place] [phone] Bety aCstro M.D. [address] [place] [phone] Lymphoma Non Hodgkins (HCC) Social History Tobacco Use Types Packs/Day Years Used Date Smoking Tobacco: Former Cigarettes 1 22 Q uit: 02/07/1989 Passive Smoke Exposure: Never Smokeless Tobacco: Former Snuff, Chew Quit: 04/18/2023 Alcohol Use Standard Drinks/Week Comments Not Currently 3 (1 standard drink = 0.6 oz pur e alcohol) [facility] Utilities Answer Date Recorded [...] often do you attend chur ch or baptism services? Never 01/10/2023 Do you belong to [...] Answer Date Recorded PHQ-2 Score 0 04/25/2020 [facility] of Occupat ional Health - Occupational Stress [...] your living situation today? I have a [facility] place to live 09/15/2023 Education Answer [...] (Latest Contact Info) Description 10/06/2023 9:[address] JUDGE - 10/06/2023 11:[address] JUDGE Surgery RST ROMB MAIN OR [address] [place] [phone] Cameron Saenz M.D. [address] [place] [address] ABDOMINAL EXPLORATION, REMOVAL ABTHERA, POSSBLE BOWEL RESECTION, PROCEED INDICATED 10/11/2023 7:[address] JUDGE Appointment Department of Laboratory Medicine and Pathology, [facility], in [place], [place] [address] [place] [phone] Arti Epstein M.B.B.S. [address] [place] [phone] 10/11/2023 9:[address] JUDGE Office Visit Division of Hematology in [place], [place] [address] [place] [phone] Arti Epstein M.B.B.S. [address] [place] [phone] 10/11/2023 10:[address] JUDGE Infusion Department of Oncology in [place], [place] [address] [place] [phone] Bev Gifford APRN, C.N.P., M.S.N. [address] [place] [phone] 11/19/2023 10:00 AM CDT Office Visit Division of Endocrinology in [place], [place] [address] [place] [phone] West Mendoza APRN C.N.P., M.S. [address] [place] [phone] 11/19/2023 2:30 PM CDT Comprehensive Visit Division of Hepatobiliary and Pancreas Surgery in [place], [place] [address] [place] [phone] Wesley Hamilton M.D. [address] [place] [phone] Scheduled Procedures Name Priority Associated Diagnoses Date/Ti me LAPAROTOMY - ABDOMINAL WASHOUT Ischemia Intestinal With Stricture (HCC) 10/06/2023 9:[address] JUDGE documented as of this encounter Procedures Procedure Name Priority Date/Time Associated Diagnosis Comments CBC WITH DIFFERENTIAL, B Routine 09/10/2023 7:[address] JUDGE Lymphoma Non Hodgkins (HCC) documented in this encounter Results * (ABNORMAL) CBC with Differential, Blood (09/10/2023 7:[address] JUDGE) Hemoglobin 8.8(L) 13.2 - 16.6 g/dL 09/10/2023 9:[address] JUDGE DTL Hematocrit 27.5(L) 38.3 - 48.6 % 09/10/2023 9:[address] JUDGE DTL Erythrocytes 2.91(L) 4.35 - 5.65 x10(12)/L 09/10/2023 9:[address] JUDGE DTL MCV 94.5 78.2 - 97.9 fL 09/10/2023 9:[address] JUDGE DTL RBC Distrib Width 19.6(H) 11.8 - 14.5 % 09/10/2023 9:[address] JUDGE DTL Platelet Count 169 135 - 317 x10(9)/L 09/10/2023 9:[address] JUDGE DTL Leukocytes 3.7 3.4 - 9.6 x10(9)/L 09/10/2023 9:[address] JUDGE DTL Neutrophils 2.63 1.56 - 6.45 x10(9)/L 09/10/2023 9:[address] JUDGE DHPM Lymphocytes 0.37(L) 0.95 - 3.07 x10(9)/L 09/10/2023 9:[address] JUDGE DTL Monocytes 0.50 0.26 - 0.81 x10(9)/L 09/10/2023 9:[address] JUDGE DTL Eosinophils 0.14 0.03 - 0.48 x10(9)/L 09/10/2023 9:[address] JUDGE DTL Basophils 0.07 0.01 - 0.08 x10(9)/L 09/10/2023 9:[address] JUDGE DTL Blood (Blood, Venous) 09/10/2023 7:[address] JUDGE 09/10/2023 8:[address] JUDGE Bety Castro M.D. LAB BLO OD ADD-ON [facility] [address] [place] [address], [place] DTL [facility] [address] [place] [address] [facility] [address] [place] [address] documented in this encounter Visit Diagnoses Diagnosis Lymphoma Non Hodgkins (HCC) Ischemia Intestinal With Stricture (HCC) documented in this encounter Additional Health Concerns Infection Onset Date Last Indicated Resolved Time Protective Environment 05/17/2023 05/17/2023 documented as of this encounter Care Teams Filling Winder Relationship Specialty Start Date End Date Elsewhere, Pcp PCP - General Internal Medicine 05/11/23 09/13/23 documented as of this encounter
--- OUTSIDE RECORDS SUMMARY | 2023-10-05 12:56 | XMS_ITS | Encounter Summary ---
Author Name Unknown Organization [facility] Address [address] [place] [address] Care Team Providers Care Silk Printer Name Role Phone Elsewhere, Pcp Primary Care Provider Unavailabl e Encounter Details Date Type Department Care Team (Latest Contact Info) Description 09/15/2023 8:55 AM JOB SERVICE SPECIALIST Ancillary Procedure Department of Transplantation Surgery Social History Tobacco Use Types Packs/Day Years Used Date Smoking Tobacco: Former Cigarettes 1 22 Q uit: 02/07/1989 Passive Smoke Exposure: Never Smokeless Tobacco: Former Snuff, Chew Quit: 04/18/2023 Alcohol Use Standard Drinks/Week Comments Not Currently 3 (1 standard drink = 0.6 oz pur e alcohol) [facility] Utilities Answer Date Recorded In the past 12 months has e [employer], gas, oil, or water [employer] threatened to shut off services in your [...] any clubs o r organizations such as sikhism groups, unions, fraternal or athletic groups, or [...] Answer Date Recorded PHQ-2 Score 0 04/25/2020 [facility] of Occupat ional Health - [...] your living situation today? I have a [facility] place to live 09/15/2023 Education Answer [...] (Latest Contact Info) Description 10/06/2023 9:04 AM JOB SERVICE SPECIALIST - 10/06/2023 11:24 AM JOB SERVICE SPECIALIST Surgery RST ROMB MAIN OR [address] [place] [phone] Cameron Saenz M.D. [address] [place] [phone] ABDOMINAL EXPLORATION, REMOVAL ABTHERA, POSSBLE BOWEL RESECTION, PROCEED INDICATED 10/11/2023 7:00 AM JOB SERVICE SPECIALIST Appointment Department of Laboratory Medicine and Pathology, [facility], in [place], [place] [address] [place] [phone] Arti Epstein M.B.B.S. [address] [place] [phone] 10/11/2023 9:00 AM JOB SERVICE SPECIALIST Office Visit Division of Hematology in [place], [place] [address] [place] [phone] Arit Epstein M.B.B.S. [address] [place] [phone] 10/11/2023 10:00 AM JOB SERVICE SPECIALIST Infusion Department of Oncology in [place], [place] [address] [place] [phone] Bev Gifford APRN, C.N.P., M.S.N. [address] [place] [phone] 11/19/2023 10:00 AM CDT Office Visit Division of Endocrinology in [place], [place] [address] [place] [phone] West Mendoza APRN C.N.P., M.S. [address] [place] [phone] 11/19/2023 2:30 PM CDT Comprehensive Visit Division of Hepatobiliary and Pancreas Surgery in [address] [phone] Wesley Hamilton M.D. [address] [place] [phone] Scheduled Procedures Name Priority Associated Diagnoses Date/Ti me LAPAROTOMY - ABDOMINAL WASHOUT Ischemia Intestinal With Stricture (HCC) 10/06/2023 9:04 AM JOB SERVICE SPECIALIST documented as of this encounter Procedures Procedure Name Priority Date/Time Associated Diagnosis Comments TRANSPLANTATION SURG IMAGE EXAM Routine 09/15/2023 8:55 AM JOB SERVICE SPECIALIST documented in this encounter Results * Foot-Transplantation Surg Image Exam (09/15/2023 8:55 AM JOB SERVICE SPECIALIST) 09/15/2023 8:53 AM JOB SERVICE SPECIALIST Narrative IIMS - 09/15/2023 8:55 AM JOB SERVICE SPECIALIST This order has been created and auto-finalized [...] documented as of this encounter Care Teams Silk Printer Relationship Specialty Start Date End Date Elsewhere, Pcp PCP - General Internal Medicine 09/14/23 documented as of this encounter
--- OUTSIDE RECORDS SUMMARY | 2023-10-05 12:56 | XMS_ITS | Encounter Summary ---
Author Name Unknown Organization [facility] Address [address] [place] [address] Care Team Providers Care Computer Typesetter Name Role Phone Elsewhere, Pcp Primary Care Provider Unavailabl e Encounter Details Date Type Department Care Team ([facility] st Contact Info) Description 09/04/2023 2:50 PM DIVISION MANAGER Lab Department of Infusion Therapy in [place], [place] [address] [place] [phone] Bev Gifford APRN, C.N.P., M.S.N. [address] [place] [phone] Lymphoma Non Hodgkins (HCC) (Primary Dx); Anemia [...] often do you attend chur ch or mosque services? Never 01/10/2023 Do you belong to any clubs o r organizations such as presybeterian groups, unions, fraternal or athletic groups, or [...] Answer Date Recorded PHQ-2 Score 0 04/25/2020 [facility] of Occupat ional Health - Occupational Stress [...] place to sleep or slept in a skilled nursing (including now)? No 01/10/2023 Nutrition Answer Date [...] (Latest Contact Info) Description 10/06/2023 9:04 AM DIVISION MANAGER - 10/06/2023 11:24 AM DIVISION MANAGER Surgery RST ROMB MAIN OR [address] [place] [phone] Cameron Saenz M.D. [address] [place] [phone] ABDOMINAL EXPLORATION, REMOVAL ABTHERA, POSSBLE BOWEL RESECTION, PROCEED INDICATED 10/11/2023 7:00 AM DIVISION MANAGER Appointment Department of Laboratory Medicine and Pathology, [facility], in [place], [place] [address] [place] [phone] Arti Epstein M.B.B.S. [address] [place] [phone] 10/11/2023 9:00 AM DIVISION MANAGER Office Visit Division of Hematology in [place], [place] [address] [place] [phone] Arti pEstein M.B.B.S. [address] [place] [phone] 10/11/2023 10:00 AM DIVISION MANAGER Infusion Department of Oncology in [place], [place] [address] [place] [phone] Bev Gifford APRN, C.N.P., M.S.N. [address] [place] [phone] 11/19/2023 10:00 AM CDT Office Visit Division of Endocrinology in [place], [place] [address] [place] [phone] West Mendoza APRN, C.N.P., M.S. [address] [place] [phone] 11/19/2023 2:30 PM CDT Comprehensive Visit Division of Hepatobiliary and Pancreas Surgery in [place], [place] [address] [place] [phone] Wesley Hamilton M.D. [address] [place] [address] [place] [phone] Scheduled Procedures Name Priority Associated Diagnoses Date/Ti me LAPAROTOMY - ABDOMINAL WASHOUT Ischemia Intestinal With Stricture (HCC) 10/06/2023 9:04 AM DIVISION MANAGER documented as of this encounter Procedures Procedure Name Priority Date/Time Associated Diagnosis Comments ABORH, RBC Routine 09/04/2023 3:16 PM DIVISION MANAGER TYPE AND SCREEN Routine 09/04/2023 3:16 PM DIVISION MANAGER Lymphoma Non Hodgkins (HCC) Anemia documented in this encounter Results * ABO/Rh Problem, RBC (09/04/2023 3:16 PM DIVISION MANAGER) [facility] A Pos Not applicable 09/04/2023 5:08 PM DIVISION MANAGER DTL Blood 09/04/2023 3:16 PM DIVISION MANAGER 09/04/2023 3:39 PM DIVISION MANAGER Bev Gifford APRN, C.N.P., M.S.N. L AB BLOOD BANK TEST ORDERABLES [facility] [address] [place] [address], [facility] [address] [place] [address] * Type and Screen (with Reflex Antibody ID) (09/04/2023 3:16 PM DIVISION MANAGER) [facility] See Addl Testing Not applicable 09/04/2023 5:08 PM DIVISION MANAGER ETRM Antibody Screen Negative Negative 09/04/2023 4:14 PM DIVISION MANAGER ETRM Type & Screen Expiration 09/07/2023 23:59 09/04/2023 4:14 PM DIVISION MANAGER ETRM Testing Location [place] DEFAULT 09/04/2023 3:39 PM DIVISION MANAGER ETRM Blood (Blood, Venous) 09/04/2023 3:16 PM DIVISION MANAGER 09/04/2023 3:39 PM DIVISION MANAGER Bev Gifford APRN, C.N.P., M.S.N. L AB BLOOD BANK TEST ORDERABLES [facility] [address] [place] [address], [place] ETRM [facility] [address] [place] [address] documented in this encounter Visit Diagnoses Diagnosis Lymphoma Non Hodgkins (HCC)- Primary Anemia Ischemia Intestinal With Stricture (HCC) documented in this encounter Administered Medications Inactive Administered Medications - up to 3 most recent administrations Medication Order MAR Action Action Date Dose Rate Site heparin flush 500 Units 500 Units, intra-catheter, As needed, line care, Starting on Sat09/04/23 at 1511, When no infusion to maintain patency: For IVAD accessed, not in use, and/or prior to hospital discharge, flush every 7 days after 0.9% preservative-free NaCL flush. For IVAD NOT accessed or used, flush every 4 weeks after 0.9% preservative-free NaCL flush. Given 09/04/2023 3:26 PM DIVISION MANAGER 500 Units sodium chloride 0.9 % injection 10 mL 10 mL, intra-catheter, As needed, line care, Starting on Sat09/04/23 at 1511, When IVAD Accessed and in Use: Flush prior to and following infusion, between multiple consecutive infusions, and prior to blood sampling. Given 09/04/2023 3:20 PM DIVISION MANAGER 10 mL sodium chloride 0.9 % injection 20 mL 20 mL, intra-catheter, As needed, line care, Starting on Sat09/04/23 at 1511, When IVAD Accessed and in Use: Flush post blood transfusion or post blood sampling. Given 09/04/2023 3:20 PM DIVISION MANAGER 20 mL documented in this encounter Additional Health Concerns Infection Onset Date Last Indicated Resolved Time Protective Environment 05/17/2023 05/17/2023 documented as of this encounter Care Teams Computer Typesetter Relationship Specialty Start Date End Date Elsewhere, Pcp PCP - General Internal Medicine 05/11/23 09/13/23 documented as of this encounter
--- OUTSIDE RECORDS SUMMARY | 2023-10-05 12:57 | XMS_ITS | Encounter Summary ---
Author Name Unknown Organization [facility] Address [address] [place] [address] Care Team Providers Care Laboratory Inspector Name Role Phone Elsewhere, Pcp Primary Care Provider Unavailabl e Reason for Visit * Reason Comments Med Refill Encounter Details Date Type Department Care Team ([facility] st Contact Info) Description 08/29/2023 Refill Division of Endocrinology in [place], [place] [address] [place] [phone] Rosemarie Dutton, RYLEE, C.N.P., M.S. [address] [place] [phone] Med Refill Social History Tobacco Use Types [...] How often do you attend chur or orthodoxy services? Never 01/10/2023 Do you belong to any clubs o r organizations such as hinduism groups, unions, fraternal or athletic groups, or [...] Answer Date Recorded PHQ-2 Score 0 04/25/2020 [facility] of Occupat ional Health - Occupational [...] encounter Miscellaneous Notes * Telephone Encounter - Aaliyah Cabrera R.N., [facility] - 08/29/2023 10:40 AM CST SUBJECTIVE CHIEF COMPLAINT / REASON FOR CALL Med Refill Information Discussed Contacted patient to clarify request regarding the Jardiance. He reports that he has had issues with his pharmacy when attempting to refill the prescription. He has continued to take Jardiance 10 mg daily along with Metformin 1000mg daily. He reports his blood glucose readings in the morning are typically 80-90 mg/dL. He shares that he believes things have gotten messed up due to having been at different facilities and in the hospital. He notes that he typically would have met with Rosemarie Dutton CNP in July but has been managing the treatments for lymphoma. PLAN Disposition/Recommendation: Shared with him that there is an active prescription written to the [facility] pharmacy. He would like it sent to his [facility] pharmacy. Discussed that I would send the prescription to Rosemarie Dutton CNP to review. He plans to call in October to schedule a follow up appointment in January. Information/Education: patient/caller able to teach back Caller agreeable to plan of care: yes The following references were used: nursing clinical judgement RAL HOME MAKEUP ARTIST documented in this encounter Plan of Treatment Upcoming Encounters Date Type Department Care Team (Latest Contact Info) Description 10/06/2023 9:04 AM FUNERAL HOME MAKEUP ARTIST - 10/06/2023 11:24 AM FUNERAL HOME MAKEUP ARTIST Surgery RST ROMB MAIN OR [address] [place] [phone] Cameron Saenz M.D. [address] [place] [phone] ABDOMINAL EXPLORATION, REMOVAL ABTHERA, POSSBLE BOWEL RESECTION, PROCEED INDICATED 10/11/2023 7:00 AM FUNERAL HOME MAKEUP ARTIST Appointment Department of Laboratory Medicine and Pathology, [facility], in [place], [place] [address] [place] [phone] Arti Epstein M.B.B.S. [address] [place] [phone] 10/11/2023 9:00 AM FUNERAL HOME MAKEUP ARTIST Office Visit Division of Hematology in [place], [place] [address] [place] [phone] Arti Epstein M.B.B.S. [address] [place] [phone] 10/11/2023 10:00 AM FUNERAL HOME MAKEUP ARTIST Infusion Department of Oncology in [place], [place] [address] [place] [phone] Bev Gifford APRN, C.N.P., M.S.N. [address] [place] [phone] 11/19/2023 10:00 AM CDT Office Visit Division of Endocrinology in [place], [place] [address] [place] [phone] West Mendoza APRN, C.N.P., M.S. [address] [place] [phone] 11/19/2023 2:30 PM CDT Comprehensive Visit Division of Hepatobiliary and Pancreas Surgery in [place], [place] [address] [place] [phone] Wesley Hamilton M.D. [address] [place] [phone] Scheduled Procedures Name Priority Associated Diagnoses Date/Ti me LAPAROTOMY - ABDOMINAL WASHOUT Ischemia Intestinal With Stricture (HCC) 10/06/2023 9:04 AM FUNERAL HOME MAKEUP ARTIST documented as of this encounter Visit Diagnoses Not on filedocumented in this encounter Additional Health Concerns Infection Onset Date Last Indicated Resolved Time Protective Environment 05/17/2023 05/17/2023 documented as of this encounter Care Teams Laboratory Inspector Relationship Specialty Start Date End Date Elsewhere, Pcp PCP - General Internal Medicine 05/11/23 09/13/23 documented as of this encounter
--- OUTSIDE RECORDS SUMMARY | 2023-10-05 12:57 | XMS_ITS | Encounter Summary ---
Author Name Unknown Organization [facility] Address [address] [place] [address] Care Team Providers Care Net Developer Consultant Name Role Phone Elsewhere, Pcp Primary Care Provider Unavailabl e Encounter Details Date Type Department Care Team ([facility] st Contact Info) Description 08/19/2023 Clinical Communication Division of Hematology in [place], [place] [address] [place] [phone] Hola Claudio M.D. [address] [place] [phone] Social History Tobacco Use Types Packs/Day Years Used Date Smoking Tobacco: Former Cigarettes 1 22 Q uit: 02/07/1989 Passive Smoke Exposure: Never Smokeless Tobacco: Former Snuff, Chew Quit: 04/18/2023 Alcohol Use Standard Drinks/Week Comments Not Currently 3 (1 standard drink = 0.6 oz pur e alcohol) [facility] Utilities Answer Date Recorded In the past 12 months has e [employer], gas, oil, or water [employer] threatened to shut off services in your [...] any clubs o r organizations such as pentecostalism groups, unions, fraternal or athletic groups, or [...] Answer Date Recorded PHQ-2 Score 0 04/25/2020 [facility] of Occupat ional Health - Occupational Stress [...] your living situation today? I have a [facility] place to live 09/15/2023 Education Answer [...] (Latest Contact Info) Description 10/06/2023 9:04 AM ORNAMENTAL METAL ERECTOR APPRENTICE - 10/06/2023 11:24 AM ORNAMENTAL METAL ERECTOR APPRENTICE Surgery RST ROMB MAIN OR [address] [place] [phone] Cameron Saenz M.D. [address] [place] [address] ABDOMINAL EXPLORATION, REMOVAL ABTHERA, POSSBLE BOWEL RESECTION, PROCEED INDICATED 10/11/2023 7:00 AM ORNAMENTAL METAL ERECTOR APPRENTICE Appointment Department of Laboratory Medicine and Pathology, [facility], in [place], [place] [address] [place] [phone] Arti Epstein M.B.B.S. [address] [place] [phone] 10/11/2023 9:00 AM ORNAMENTAL METAL ERECTOR APPRENTICE Office Visit Division of Hematology in [place], [place] [address] [place] [phone] Arti Epstein M.B.B.S. [address] [place] [phone] 10/11/2023 10:00 AM ORNAMENTAL METAL ERECTOR APPRENTICE Infusion Department of Oncology in [place], [place] [address] [place] [phone] Bev Gifford APRN, C.N.P., M.S.N. [address] [place] [phone] 11/19/2023 10:00 AM CDT Office Visit Division of Endocrinology in [place], [place] [address] [place] [phone] West Mendoza APRN, C.N.P., M.S. [address] [place] [phone] 11/19/2023 2:30 PM CDT Comprehensive Visit Division of Hepatobiliary and Pancreas Surgery in [address] [phone] Wesley Hamilton M.D. [address] [place] [phone] Scheduled Procedures Name Priority Associated Diagnoses Date/Ti me LAPAROTOMY - ABDOMINAL WASHOUT Ischemia Intestinal With Stricture (HCC) 10/06/2023 9:04 AM ORNAMENTAL METAL ERECTOR APPRENTICE documented as of this encounter Visit Diagnoses Not on filedocumented in this encounter Additional Health Concerns Infection Onset Date Last Indicated Resolved Time Protective Environment 05/17/2023 05/17/2023 COVID19 Pending 09/14/2023 09/14/2023 09/14/2023 8 :59 PM ORNAMENTAL METAL ERECTOR APPRENTICE documented as of this encounter Care Teams Net Developer Consultant Relationship Specialty Start Date End Date Elsewhere, Pcp PCP - General Internal Medicine 09/14/23 documented as of this encounter
--- OUTSIDE RECORDS SUMMARY | 2023-10-05 12:57 | XMS_ITS | Encounter Summary ---
Author Name Unknown Organization [facility] Address [address] [place] [address] Care Team Providers Care Automated Weaver Name Role Phone Elsewhere, Pcp Primary Care Provider Unavailabl e Encounter Details Date Type Department Care Team ([facility] st Contact Info) Description 08/12/2023 Orders Only Division of Hematology in [place], [place] [address] [place] [phone] Bety Castro M.D. [address] [place] [phone] Lymphoma Non Hodgkins (HCC) (Primary Dx) Social [...] How often do you attend chur or baptist services? Never 01/10/2023 Do you belong to any clubs o r organizations such as taoist groups, unions, fraternal or athletic groups, or [...] Answer Date Recorded PHQ-2 Score 0 04/25/2020 [facility] of Occupat ional Health - Occupational Stress [...] place to sleep or slept in a halfway (including now)? No 01/10/2023 Nutrition Answer Date [...] (Latest Contact Info) Description 10/06/2023 9:04 AM JAVA ANDROID DEVELOPER - 10/06/2023 11:24 AM JAVA ANDROID DEVELOPER Surgery RST ROMB MAIN OR [address] [place] [phone] Cameron Saenz M.D. [address] [place] [phone] ABDOMINAL EXPLORATION, REMOVAL ABTHERA, POSSBLE BOWEL RESECTION, PROCEED INDICATED 10/11/2023 7:00 AM JAVA ANDROID DEVELOPER Appointment Department of Laboratory Medicine and Pathology, [facility], in [place], [place] [address] [place] [phone] Arti Epstein M.B.B.S. [address] [place] [phone] 10/11/2023 9:00 AM JAVA ANDROID DEVELOPER Office Visit Division of Hematology in [place], [place] [address] [place] [phone] Arti Epstein M.B.B.S. [address] [place] [phone] 10/11/2023 10:00 AM JAVA ANDROID DEVELOPER Infusion Department of Oncology in [place], [place] [address] [place] [phone] Bev Gifford APRN, C.N.P., M.S.N. [address] [place] [phone] 11/19/2023 10:00 AM CDT Office Visit Division of Endocrinology in [place], [place] [address] [place] [phone] West Mendoza APRN, C.N.P., M.S. [address] [place] [phone] 11/19/2023 2:30 PM CDT Comprehensive Visit Division of Hepatobiliary and Pancreas Surgery in [place], [place] [address] [place] [phone] Wesley Hamilton M.D. [address] [place] [phone] Scheduled Orders Name Type Priority Associated Diagnoses Orde r Schedule CBC with Differential, Blood Lab Routine Lymphoma Non Hodgkins (HCC) Weekly for 6 Occurrences starting 08/12/2023 until 11/10/2024, 3 completed Scheduled Procedures Name Priority Associated Diagnoses Date/Ti me LAPAROTOMY - ABDOMINAL WASHOUT Ischemia Intestinal With Stricture (HCC) 10/06/2023 9:04 AM JAVA ANDROID DEVELOPER documented as of this encounter Results * (ABNORMAL) CBC with Differential, Blood (09/10/2023 7:44 AM JAVA ANDROID DEVELOPER) Hemoglobin 8.8(L) 13.2 - 16.6 g/dL 09/10/2023 9:02 AM JAVA ANDROID DEVELOPER DTL Hematocrit 27.5(L) 38.3 - 48.6 % 09/10/2023 9:02 AM JAVA ANDROID DEVELOPER DTL Erythrocytes 2.91(L) 4.35 - 5.65 x10(12)/L 09/10/2023 9:02 AM JAVA ANDROID DEVELOPER DTL MCV 94.5 78.2 - 97.9 fL 09/10/2023 9:02 AM JAVA ANDROID DEVELOPER DTL RBC Distrib Width 19.6(H) 11.8 - 14.5 % 09/10/2023 9:02 AM JAVA ANDROID DEVELOPER DTL Platelet Count 169 135 - 317 x10(9)/L 09/10/2023 9:02 AM JAVA ANDROID DEVELOPER DTL Leukocytes 3.7 3.4 - 9.6 x10(9)/L 09/10/2023 9:02 AM JAVA ANDROID DEVELOPER DTL Neutrophils 2.63 1.56 - 6.45 x10(9)/L 09/10/2023 9:02 AM JAVA ANDROID DEVELOPER DHPM Lymphocytes 0.37(L) 0.95 - 3.07 x10(9)/L 09/10/2023 9:02 AM JAVA ANDROID DEVELOPER DTL Monocytes 0.50 0.26 - 0.81 x10(9)/L 09/10/2023 9:02 AM JAVA ANDROID DEVELOPER DTL Eosinophils 0.14 0.03 - 0.48 x10(9)/L 09/10/2023 9:02 AM JAVA ANDROID DEVELOPER DTL Basophils 0.07 0.01 - 0.08 x10(9)/L 09/10/2023 9:02 AM JAVA ANDROID DEVELOPER DTL Blood (Blood, Venous) 09/10/2023 7:44 AM JAVA ANDROID DEVELOPER 09/10/2023 8:17 AM JAVA ANDROID DEVELOPER Bety Castro M.D. LAB BLO OD ADD-ON [facility] [address] [place] [address], [facility] DTL [facility] [address] [place] [address] DHPM [facility] [address] [place] [address] * (ABNORMAL) CBC with Differential, Blood (08/26/2023 7:03 AM JAVA ANDROID DEVELOPER) Hemoglobin 7.5(L) 13.2 - 16.6 g/dL 08/26/2023 7:25 AM JAVA ANDROID DEVELOPER DTL Hematocrit 23.6(L) 38.3 - 48.6 % 08/26/2023 7:25 AM JAVA ANDROID DEVELOPER DTL Erythrocytes 2.58(L) 4.35 - 5.65 x10(12)/L 08/26/2023 7:25 AM JAVA ANDROID DEVELOPER DTL MCV 91.5 78.2 - 97.9 fL 08/26/2023 7:25 AM JAVA ANDROID DEVELOPER DTL RBC Distrib Width 20.7(H) 11.8 - 14.5 % 08/26/2023 7:25 AM JAVA ANDROID DEVELOPER DTL Platelet Count 143 135 - 317 x10(9)/L 08/26/2023 7:25 AM JAVA ANDROID DEVELOPER DTL Leukocytes 9.7(H) 3.4 - 9.6 x10(9)/L 08/26/2023 7:25 AM JAVA ANDROID DEVELOPER DTL Neutrophils 8.57(H) 1.56 - 6.45 x10(9)/L 08/26/2023 7:25 AM JAVA ANDROID DEVELOPER DHPM Lymphocytes 0.28(L) 0.95 - 3.07 x10(9)/L 08/26/2023 7:25 AM JAVA ANDROID DEVELOPER DTL Monocytes 0.54 0.26 - 0.81 x10(9)/L 08/26/2023 7:25 AM JAVA ANDROID DEVELOPER DTL Eosinophils 0.19 0.03 - 0.48 x10(9)/L 08/26/2023 7:25 AM JAVA ANDROID DEVELOPER DTL Basophils 0.07 0.01 - 0.08 x10(9)/L 08/26/2023 7:25 AM JAVA ANDROID DEVELOPER DTL Blood (Blood, Venous) 08/26/2023 7:03 AM JAVA ANDROID DEVELOPER 08/26/2023 7:14 AM JAVA ANDROID DEVELOPER Bety Castro M.D. LAB BLO OD ADD-ON [facility] [address] [place] [address], [facility] DTL [facility] [address] [place] [address] [facility] [address] [place] [address] * (ABNORMAL) CBC with Differential, Blood (08/19/2023 8:05 AM JAVA ANDROID DEVELOPER) Hemoglobin 7.5(L) 13.2 - 16.6 g/dL 08/19/2023 9:26 AM JAVA ANDROID DEVELOPER DTL Hematocrit 23.6(L) 38.3 - 48.6 % 08/19/2023 9:26 AM JAVA ANDROID DEVELOPER DTL Erythrocytes 2.63(L) 4.35 - 5.65 x10(12)/L 08/19/2023 9:26 AM JAVA ANDROID DEVELOPER DTL MCV 89.7 78.2 - 97.9 fL 08/19/2023 9:26 AM JAVA ANDROID DEVELOPER DTL RBC Distrib Width 20.6(H) 11.8 - 14.5 % 08/19/2023 9:26 AM JAVA ANDROID DEVELOPER DTL Platelet Count 129(L) 135 - 317 x10(9)/L 08/19/2023 9:26 AM JAVA ANDROID DEVELOPER DTL Leukocytes 0.5(L) 3.4 - 9.6 x10(9)/L 08/19/2023 9:26 AM JAVA ANDROID DEVELOPER DTL Neutrophils 0.26(CL) 1.56 - 6.45 x10(9)/L 08/19/2023 10:41 AM JAVA ANDROID DEVELOPER [facility] Comment:Rechecked Lymphocytes 0.09(L) 0.95 - 3.07 x10(9)/L 08/19/2023 10:41 AM JAVA ANDROID DEVELOPER DTL Monocytes 0.07(L) 0.26 - 0.81 x10(9)/L 08/19/2023 10:41 AM JAVA ANDROID DEVELOPER DTL Eosinophils 0.04 0.03 - 0.48 x10(9)/L 08/19/2023 10:41 AM JAVA ANDROID DEVELOPER DTL Basophils <0.03 0.01 - 0.08 x10(9)/L 08/19/2023 10:41 AM JAVA ANDROID DEVELOPER DTL Blood (Blood, Venous) 08/19/2023 8:05 AM JAVA ANDROID DEVELOPER 08/19/2023 8:37 AM JAVA ANDROID DEVELOPER Bety Castro M.D. 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
--- OUTSIDE RECORDS SUMMARY | 2023-10-05 12:57 | XMS_ITS | Encounter Summary ---
Author Name Unknown Organization [facility] Address [address] [place] [address] Care Team Providers Care Helper [employer] Name Role Phone Elsewhere, Pcp Primary Care Provider Unavailabl e Reason for Visit * Reason Onset Date Comments Pre-visit Intake 08/27/2023 Encounter Details Date Type Department Care Team (Latest Contact Info) Description 08/27/2023 11:00 AM ASSISTANT IMPORT MANAGER Clinical Communication Virtual Review in [place], [place] 200 [place] [address] Pre-visit Intake Social History Tobacco Use Types [...] often do you attend chur ch or christian services? Never 01/10/2023 Do you belong to [...] Date Recorded PHQ-2 Score 0 04/25/2020 [facility] of Occupat ional Health - Occupational Stress [...] place to sleep or slept in a chcf (including now)? No 01/10/2023 Nutrition Answer Date [...] (Latest Contact Info) Description 10/06/2023 9:04 AM ASSISTANT IMPORT MANAGER - 10/06/2023 11:24 AM ASSISTANT IMPORT MANAGER Surgery RST ROMB MAIN OR [address] [place] [address] Cameron Saenz M.D. [address] [place] [address] ABDOMINAL EXPLORATION, REMOVAL ABTHERA, POSSBLE BOWEL RESECTION, PROCEED INDICATED 10/11/2023 7:00 AM ASSISTANT IMPORT MANAGER Appointment Department of Laboratory Medicine and Pathology, [facility], in [place], [place] [address] [place] [phone] Arti Epstein M.B.B.S. [address] [place] [phone] 10/11/2023 9:00 AM ASSISTANT IMPORT MANAGER Office Visit Division of Hematology in [place], [place] [address] [place] [phone] Arti Epstein M.B.B.S. [address] [place] [phone] 10/11/2023 10:00 AM ASSISTANT IMPORT MANAGER Infusion Department of Oncology in [place], [place] [address] [place] [phone] Bev Gifford APRN, C.N.P., M.S.N. [address] [place] [phone] 11/19/2023 10:00 AM CDT Office Visit Division of Endocrinology in [place], [place] [address] [place] [phone] West Mendoza APRN, C.N.P., M.S. [address] [place] [phone] 11/19/2023 2:30 PM CDT Comprehensive Visit Division of Hepatobiliary and Pancreas Surgery in [place], [place] [address] [place] [phone] Wesley Hamilton M.D. [address] [place] [phone] Scheduled Procedures Name Priority Associated Diagnoses Date/Ti me LAPAROTOMY - ABDOMINAL WASHOUT Ischemia Intestinal With Stricture (HCC) 10/06/2023 9:04 AM ASSISTANT IMPORT MANAGER documented as of this encounter Visit Diagnoses Not on filedocumented in this encounter Additional Health Concerns Infection Onset Date Last Indicated Resolved Time Protective Environment 05/17/2023 05/17/2023 documented as of this encounter Care Teams Helper [employer] Relationship Specialty Start Date End Date Elsewhere, Pcp PCP - General Internal Medicine 05/11/23 09/13/23 documented as of this encounter
--- OUTSIDE RECORDS SUMMARY | 2023-10-05 12:57 | XMS_ITS | Encounter Summary ---
Author Name Unknown Organization [facility] Address [address] [place] [phone] Care Team Providers Care Registration Specialist Name Role Phone Elsewhere, Pcp Primary Care Provider Unavailabl e Reason for Visit * Episode Based Medications (Routine) - Authorized Specialty Diagnoses / Procedures Referred By Contac t Referred To Contact Diagnoses Lymphoma Non Hodgkins (HCC) Procedures X Molly Jarquin M.B.BTami, Tani [address] [place] [phone] [address] [place] [address] [place] [phone] Referral ID Status Reason Start Date Expiration Date V isits Requested Visits Authorized [id number] Authorized 05/17/2023 05/16/2025 99 99 Encounter Details Date Type Department Care Team (Late st Contact Info) Description 08/12/2023 7:40 AM SAFETY ASSOCIATE Lab Department of Oncology in [place], [place] [address] [place] [phone] Bety Castro M.D. [address] [place] [phone] Lymphoma Non Hodgkins (HCC) (Primary Dx); Hypokalemia Social History Tobacco Use Types Packs/Day Years [...] often do you attend chur ch or roman catholic services? Never 01/10/2023 Do you belong to [...] Answer Date Recorded PHQ-2 Score 0 04/25/2020 [facility] of Occupat ional Health - Occupational Stress [...] (Latest Contact Info) Description 10/06/2023 9:04 AM SAFETY ASSOCIATE - 10/06/2023 11:24 AM SAFETY ASSOCIATE Surgery [facility] MAIN OR [address] [place] [phone] Cameron Saenz M.D. [address] [place] [phone] ABDOMINAL EXPLORATION, REMOVAL ABTHERA, POSSBLE BOWEL RESECTION, PROCEED INDICATED 10/11/2023 7:00 AM SAFETY ASSOCIATE Appointment Department of Laboratory Medicine and Pathology, [facility], in [place], [place] [address] [place] [phone] Arti Epstein M.B.B.S. [address] [place] [phone] 10/11/2023 9:00 AM SAFETY ASSOCIATE Office Visit Division of Hematology in [address] [phone] Arti Epstein M.B.B.S. [address] [place] [phone] 10/11/2023 10:00 AM SAFETY ASSOCIATE Infusion Department of Oncology in [address] [phone] Bev Gifford APRN, C.N.P., M.S.N. [address] [place] [phone] 11/19/2023 10:00 AM CDT Office Visit Division of Endocrinology in [place], [place] [address] [place] [phone] West Mendoza APRN, C.N.P., M.S. [address] [place] [phone] 11/19/2023 2:30 PM CDT Comprehensive Visit Division of Hepatobiliary and Pancreas Surgery in [place], [place] [address] [place] [phone] Wesley Hamilton M.D. [address] [place] [phone] Scheduled Procedures Name Priority Associated Diagnoses Date/Ti me LAPAROTOMY - ABDOMINAL WASHOUT Ischemia Intestinal With Stricture (HCC) 10/06/2023 9:04 AM SAFETY ASSOCIATE documented as of this encounter Procedures Procedure Name Priority Date/Time Associated Diagnosis Comments CBC WITH DIFFERENTIAL, B Routine 08/12/2023 8:28 AM SAFETY ASSOCIATE Lymphoma Non Hodgkins (HCC) MAGNESIUM, S Routine 08/12/2023 8:28 AM SAFETY ASSOCIATE Hypokalemia COMPREHENSIVE METABOLIC PANEL, S/P Routine 08/12/2023 8:28 AM SAFETY ASSOCIATE Lymphoma Non Hodgkins (HCC) documented in this encounter Results * (ABNORMAL) Magnesium (08/12/2023 8:28 AM SAFETY ASSOCIATE) Magnesium, S 1.2(L) 1.7 - 2.3 mg/dL 08/12/2023 9:32 AM SAFETY ASSOCIATE DTL Blood (Blood, Venous) 08/12/2023 8:28 AM SAFETY ASSOCIATE 08/12/2023 9:08 AM SAFETY ASSOCIATE Roseann Burgos, B.Ch., B.A.O. LAB B LOOD ADD-ON [facility] 200 [place] [address], [facility] DTL [facility] 200 [place] [address] * (ABNORMAL) Comprehensive Metabolic Panel (08/12/2023 8:28 AM SAFETY ASSOCIATE) Pathologist [facility] Potassium, S 3.4(L) 3.6 - 5.2 mmol/L 08/12/2023 9:32 AM SAFETY ASSOCIATE DTL Sodium, S 143 135 - 145 mmol/L 08/12/2023 9:32 AM SAFETY ASSOCIATE DTL Chloride, S 107 98 - 107 mmol/L 08/12/2023 9:32 AM SAFETY ASSOCIATE DTL Bicarbonate, S 27 22 - 29 mmol/L 08/12/2023 9:32 AM SAFETY ASSOCIATE DTL Anion Gap 9 7 - 15 08/12/2023 9:32 AM SAFETY ASSOCIATE DTL BUN (Blood Urea Nitrogen), S 9 8 - 24 mg/dL 08/12/2023 9:32 AM SAFETY ASSOCIATE DTL Creatinine 0.77 0.74 - 1.35 mg/dL 08/12/2023 9:32 AM SAFETY ASSOCIATE DTL Estimated GFR (eGFR) >90 >=60 mL/min/BS A 08/12/2023 9:32 AM SAFETY ASSOCIATE DTL Comment: Estimated GFR calculated using the 2020 CKD_EPI creatinine equation. Calcium, Total, S 7.6(L) 8.8 - 10.2 mg/dL 08/12/2023 9:32 AM SAFETY ASSOCIATE DTL Glucose, S 86 70 - 140 mg/dL 08/12/2023 9:32 AM SAFETY ASSOCIATE DTL Protein, Total, S 4.7(L) 6.3 - 7.9 g/dL 08/12/2023 9:32 AM SAFETY ASSOCIATE DTL Albumin, S 2.9(L) 3.5 - 5.0 g/dL 08/12/2023 9:32 AM SAFETY ASSOCIATE DTL Aspartate Aminotransferase (AST), S 18 8 - 48 U/L 08/12/2023 9:32 AM SAFETY ASSOCIATE DTL Alkaline Phosphatase, S 92 40 - 129 U/L 08/12/2023 9:32 AM SAFETY ASSOCIATE DTL Alanine Aminotransferase (ALT), S 9 7 - 55 U/L 08/12/2023 9:32 AM SAFETY ASSOCIATE DTL Bilirubin, Total, S <0.2 0.0 - 1.2 mg/dL 08/12/2023 9:32 AM SAFETY ASSOCIATE DTL Blood (Blood, Venous) 08/12/2023 8:28 AM SAFETY ASSOCIATE 08/12/2023 9:08 AM SAFETY ASSOCIATE Bety Castro M.D. LAB BLO OD ADD-ON [facility] [address] [place] [address], [facility] DTL [facility][note 3] [address] [place] [address] * (ABNORMAL) CBC with Differential, Blood (08/12/2023 8:28 AM SAFETY ASSOCIATE) Hemoglobin 8.6(L) 13.2 - 16.6 g/dL 08/12/2023 9:32 AM SAFETY ASSOCIATE DTL Hematocrit 27.3(L) 38.3 - 48.6 % 08/12/2023 9:32 AM SAFETY ASSOCIATE DTL Erythrocytes 3.04(L) 4.35 - 5.65 x10(12)/L 08/12/2023 9:32 AM SAFETY ASSOCIATE DTL MCV 89.8 78.2 - 97.9 fL 08/12/2023 9:32 AM SAFETY ASSOCIATE DTL RBC Distrib Width 21.2(H) 11.8 - 14.5 % 08/12/2023 9:32 AM SAFETY ASSOCIATE DTL Platelet Count 253 135 - 317 x10(9)/L 08/12/2023 9:32 AM SAFETY ASSOCIATE DTL Leukocytes 9.1 3.4 - 9.6 x10(9)/L 08/12/2023 9:32 AM SAFETY ASSOCIATE DTL Neutrophils 8.01(H) 1.56 - 6.45 x10(9)/L 08/12/2023 9:32 AM SAFETY ASSOCIATE DHPM Lymphocytes 0.30(L) 0.95 - 3.07 x10(9)/L 08/12/2023 9:32 AM SAFETY ASSOCIATE DTL Monocytes 0.62 0.26 - 0.81 x10(9)/L 08/12/2023 9:32 AM SAFETY ASSOCIATE DTL Eosinophils 0.12 0.03 - 0.48 x10(9)/L 08/12/2023 9:32 AM SAFETY ASSOCIATE DTL Basophils 0.07 0.01 - 0.08 x10(9)/L 08/12/2023 9:32 AM SAFETY ASSOCIATE DTL Blood (Blood, Venous) 08/12/2023 8:28 AM SAFETY ASSOCIATE 08/12/2023 8:40 AM SAFETY ASSOCIATE Bety Castro M.D. LAB BLO OD ADD-ON [facility] [address] [place] [address], [place] DTL [facility][note 3] [address] [place] [address] DHPM [facility][note 3] [address] [place] [address] documented in this encounter Visit Diagnoses Diagnosis Lymphoma Non Hodgkins (HCC)- Primary Hypokalemia Ischemia Intestinal With Stricture (HCC) documented in this encounter Administered Medications Inactive Administered Medications - up to 3 most recent administrations Medication Order MAR Action Action Date Dose Rate Site heparin flush 500 Units 500 Units, intra-catheter, As needed, line care, Starting on Sat08/12/23 at 0817, When no infusion to maintain patency: For IVAD accessed, not in use, and/or prior to hospital discharge, flush every 7 days after 0.9% preservative-free NaCL flush. For IVAD NOT accessed or used, flush every 4 weeks after 0.9% preservative-free NaCL flush. Given 08/12/2023 8:34 AM SAFETY ASSOCIATE 500 Units sodium chloride 0.9 % injection 10 mL 10 mL, intra-catheter, As needed, line care, Starting on Sat08/12/23 at 0817, When IVAD Accessed and in Use: Flush prior to and following infusion, between multiple consecutive infusions, and prior to blood sampling. Given 08/12/2023 8:34 AM SAFETY ASSOCIATE 10 mL sodium chloride 0.9 % injection 20 mL 20 mL, intra-catheter, As needed, line care, Starting on Sat08/12/23 at 0817, When IVAD Accessed and in Use: Flush post blood transfusion or post blood sampling. Given 08/12/2023 8:34 AM SAFETY ASSOCIATE 20 mL documented in this encounter Additional Health Concerns Infection Onset Date Last Indicated Resolved Time Protective Environment 05/17/2023 05/17/2023 documented as of this encounter Care Teams Registration Specialist Relationship Specialty Start Date End Date Elsewhere, Pcp PCP - General Internal Medicine 05/11/23 09/13/23 documented as of this encounter
--- OUTSIDE RECORDS SUMMARY | 2023-10-05 12:57 | XMS_ITS | Encounter Summary ---
Author Name Unknown Organization [facility] Address [address] [place] [id number] Care Team Providers Care Face And Fill Packer Name Role Phone Elsewhere, Pcp Primary Care Provider Unavailabl e Reason for Referral * Outpatient (Routine) - Closed Specialty Diagnoses / Procedures Referred By Contac t Referred To Contact Diagnoses Lymphoma Non Hodgkins (HCC) Procedures EGD (EsophagealGastroDuodenoscopy ) Roseann Sheldon M.B., B.Ch., B.A.O. [address] [place] [phone] [facility] Referral ID Status Reason Start Date Expiration Date Visits Re quested Visits Authorized [id number] Closed 08/07/2023 08/06/2024 1 1 MUD THICKENER OPERATOR Reason for Visit * Outpatient (Routine) - Closed Specialty Diagnoses / Procedures Referred By Contac t Referred To Contact Diagnoses Lymphoma Non Hodgkins (HCC) Procedures EGD (EsophagealGastroDuodenoscopy ) Roseann Sheldon M.B., B.Ch., B.A.O. [address] [place] [phone] [facility] Referral ID Status Reason Start Date Expiration Date Visits Re quested Visits Authorized [id number] Closed 08/07/2023 08/06/2024 1 1 Encounter Details Date Type Department Care Team (Latest Contact Info) Description 08/13/2023 11:34 AM RED MUD THICKENER OPERATOR - 08/13/2023 11:59 PM RED MUD THICKENER OPERATOR Hospital Encounter Division of Gastroenterology in [place], [place] [address] [place] [phone] Roseann Sheldon M.B., B.Ch., B.A.O. [address] [place] [address] [phone] Beata Fajardo M.D. [address] [place], [place] [phone] Ashia Barakat APRN, CRNA [address] [place] [phone] Lymphoma Non Hodgkins (HCC) Discharge Disposition: Home or Self Care Social [...] often do you attend chur ch or sikhism services? Never 01/10/2023 Do you belong to any clubs o r organizations such as confucianism groups, unions, fraternal or athletic groups, or [...] Answer Date Recorded PHQ-2 Score 0 04/25/2020 [facility] of Occupat ional Health - Occupational [...] place to sleep or slept in a jail (including now)? No 01/10/2023 Nutrition Answer Date [...] Sign Reading Time Taken Comments Blood Pressure 109/60 08/13/2023 3:15 PM RED MUD THICKENER OPERATOR Pulse 67 08/13/2023 3:18 PM RED MUD THICKENER OPERATOR Temperature 36.4 ??C (97.5 ??F) 08/13/2023 3:20 PM CS T Respiratory Rate 19 08/13/2023 3:20 PM RED MUD THICKENER OPERATOR Oxygen Saturation 98% 08/13/2023 3:18 PM RED MUD THICKENER OPERATOR Inhaled Oxygen Concentration - - Weight - - Height - - Body Mass Index - - documented in this encounter Discharge Instructions * Attachments The following attachments cannot be sent through Care Everywhere. * Care Following Upper Endoscopy (Maori) documented in this encounter Medications at Time of Discharge Medication Sig Dispensed Refills Start Date End Date acetaminophen (TYLENOL) 500 mg tablet Take 1 tablet (500 mg total) by mouth every 6 (six) hours as needed for mild pain or score 1-3 of 10 or moderate pain or score 4-6 of 10. 100 tablet 0 08/07/2023 allopurinoL (ZYLOPRIM) 300 mg tablet Take 1 tablet (300 mg total) by mouth daily. 30 tablet 0 05/24/2023 amitriptyline (ELAVIL) 25 mg tablet Administer 0.5 tablets (12.5 mg total) via small bowel tube at bedtime as needed (neuropathy). 15 tablet 0 05/07/2023 aspirin 81 mg chewable tablet Chew 1 tablet (81 mg total) daily. 36 tablet 0 08/07/2023 DME CPAP DME Order 0 magnesium chloride (MAG-DELAY) [address] tablet Take 2 tablets (128 mg total) by mouth every morning before breakfast for 14 days. Do not crush or chew. 60 tablet 0 08/07/2023 08/21/2023 metFORMIN (GLUCOPHAGE) 1,000 mg tabletIndications:Diab etes Mellitus Type 2 (HCC) Take 1 tablet (1,000 mg total) by mouth daily with dinner. 30 tablet 0 08/07/2023 ondansetron ODT (ZOFRAN-ODT) 8 mg disintegrating tablet Dissolve 1 tablet (8 mg total) in the mouth every 8 (eight) hours as needed for nausea or vomiting. 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 100 each 3 07/18/2022 potassium chloride (K-TAB) 20 mEq CR tablet Take 2 tablets (40 mEq total) by mouth daily with breakfast for 14 days. Do not crush or chew. 28 tablet 0 08/08/2023 08/22/2023 vit27,calcium/iron/FA (multivitamin/mineral- ) tablet Take 1 tablet by mouth daily. 30 tablet 0 08/07/2023 09/06/2023 simvastatin (ZOCOR) 20 mg tablet Take 1 tablet (20 mg total) by mouth at bedtime. 30 tablet 0 08/07/2023 empagliflozin (Jardiance) 10 mg tablet Take 1 tablet (10 mg total) by mouth every morning before breakfast. 360 tablet 0 08/07/2023 08/29/2023 ixekizumab (TALTZ) 80 mg/mL syringe injection Inject 1 mL (80 mg total) under the skin every 28 (twenty-eight) days. One injection per month Does not use during chemotherapy 0 08/07/2023 10/01/2023 levothyroxine (SYNTHROID, LEVOTHROID) 112 mcg tablet TAKE 2 TABLETS (224 MCG) BY MOUTH EVERY MORNING BEFORE BREAKFAST EXCEPT ON SUNDAYS, TUESDAYS, AND THURSDAYS TAKE ONLY 1 TABLET (112 MCG) EVERY MORNING 30 tablet 0 08/07/2023 09/11/2023 liraglutide, weight loss, (SAXENDA) 3 mg/0.5 mL (18 mg/3 mL) injection Inject 1.2 mg under the skin daily. HOLDNot taking during chemo 0 08/07/2023 10/01/2023 magnesium oxide (MagOx) 400 mg (241.3 mg magnesium) tablet Take 1 tablet (400 mg total) by mouth every morning before breakfast. 30 tablet 1 08/12/2023 10/03/2023 predniSONE (DELTASONE) 50 mg tabletIndications:Lymp marimar Non Hodgkins (HCC) Take 2 tablets (100 mg total) by mouth daily. Days 1 through 5 of each cycle. (Prior to chemotherapy if a chemo day) 10 tablet 4 06/10/2023 09/04/2023 predniSONE (DELTASONE) 50 mg tabletIndications:Lymp marimar Non Hodgkins (HCC) Take 2 tablets (100 mg total) by mouth daily. Days 1 through 5 of each cycle. (Prior to chemotherapy if a chemo day) 10 tablet 4 07/23/2023 09/04/2023 predniSONE (DELTASONE) 50 mg tabletIndications:Lymp marimar Non Hodgkins (HCC) Take 2 tablets (100 mg total) by mouth daily. Days 1 through 5 of each cycle. (Prior to chemotherapy if a chemo day) 10 tablet 4 08/12/2023 10/03/2023 documented as of this encounter Plan of Treatment Upcoming Encounters Date Type Department Care Team (Latest Contact Info) Description 10/06/2023 9:04 AM RED MUD THICKENER OPERATOR - 10/06/2023 11:24 AM RED MUD THICKENER OPERATOR Surgery [facility] MAIN OR [address] [place] [phone] Cameron Saenz M.D. [address] [place] [phone] ABDOMINAL EXPLORATION, REMOVAL ABTHERA, POSSBLE BOWEL RESECTION, PROCEED INDICATED 10/11/2023 7:00 AM RED MUD THICKENER OPERATOR Appointment Department of Laboratory Medicine and Pathology, [facility], in [place], [place] [address] [place] [phone] Arti Epstein M.B.B.S. [address] [place] [phone] 10/11/2023 9:00 AM RED MUD THICKENER OPERATOR Office Visit Division of Hematology in [place], [place] [address] [place] [phone] Arti Epstein M.B.B.S. [address] [place] [phone] 10/11/2023 10:00 AM RED MUD THICKENER OPERATOR Infusion Department of Oncology in [place], [place] [address] [place] [phone] Bev Gifford APRN, C.N.P., M.S.N. [address] [place] [phone] 11/19/2023 10:00 AM CDT Office Visit Division of Endocrinology in [place], [place] [address] [place] [phone] West Mendoza APRN, C.N.P., M.S. [address] [place] [phone] 11/19/2023 2:30 PM CDT Comprehensive Visit Division of Hepatobiliary and Pancreas Surgery in [place], [place] [address] [place] [phone] Wesley Hamilton M.D. [address] [place] [phone] Scheduled Orders Name Type Priority Associated Diagnoses Orde r Schedule Glucose, POCT Point of Care Testing-Docked Device Routine Routine lab collecti on (next collection) for 1 Occurrences starting 08/13/2023 until 08/13/2023 INR, POCT Point of Care Testing-Docked Device STAT STAT for 1 Occurrenc es starting 08/13/2023 until 08/13/2023 Scheduled Procedures Name Priority Associated Diagnoses Date/Ti me LAPAROTOMY - ABDOMINAL WASHOUT Ischemia Intestinal With Stricture (HCC) 10/06/2023 9:04 AM RED MUD THICKENER OPERATOR documented as of this encounter Procedures Procedure Name Priority Date/Time Associated Diagnosis Comments UPPER GI ENDOSCOPY Routine 08/13/2023 2: 06 PM RED MUD THICKENER OPERATOR Lymphoma Non Hodgkins (HCC) EGD (ESOPHAGEALGASTRODU ODENOSCOPY) Routine 08/13/2023 2:06 PM RED MUD THICKENER OPERATOR Lymphoma Non Hodgkins (HCC) documented in this encounter Results * Upper GI Endoscopy (08/13/2023 2:06 PM RED MUD THICKENER OPERATOR) 08/13/2023 2:06 PM RED MUD THICKENER OPERATOR Impressions [facility] - 08/13/2023 3:03 PM RED MUD THICKENER OPERATOR Post-op Diagnoses: ? - Normal esophagus. ? [...] food. ? - No specimens collected. Narrative [facility] - 08/13/2023 3:03 PM RED MUD THICKENER OPERATOR Gonda 2 GI Patient Name: Hola Lau [...] 2:06 PM Roseann Burgos, B.Ch., B.A.O. 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 Given 08/13/2023 3:22 PM RED MUD THICKENER OPERATOR 500 Units heparin flush 500 Units 500 Units, intra-catheter, During hospitalization, line care, Prior to discharge, Starting on Sat08/26/23 at 0652, For 1 dose, Implanted Vascular Access Device (IVAD) Venous Non-Valved: Following saline flush prior to discharge. Given 08/26/2023 7:07 AM RED MUD THICKENER OPERATOR 500 Units documented in this encounter Additional Health Concerns Infection Onset Date Last Indicated Resolved Time Protective Environment 05/17/2023 05/17/2023 documented as of this encounter Care Teams Face And Fill Packer Relationship Specialty Start Date End Date Elsewhere, Pcp PCP - General Internal Medicine 05/11/23 09/13/23 documented as of this encounter
--- OUTSIDE RECORDS SUMMARY | 2023-10-05 12:57 | XMS_ITS | Encounter Summary ---
Author Name Unknown Organization [facility] Address [address] [place] [address] Care Team Providers Care Blueprint Duplicator Name Role Phone Elsewhere, Pcp Primary Care Provider Unavailabl e Reason for Visit * Episode Based Medications (Routine) - Authorized Specialty Diagnoses / Procedures Referred By Contac t Referred To Contact Diagnoses Lymphoma Non Hodgkins (HCC) Procedures X Molly Jarquin M.B.BTami, MBeny [address] [place] [address] Rst Hem [place] [address] [place] [phone] Referral ID Status Reason Start Date Expiration Date V isits Requested Visits Authorized [id number] Authorized 05/17/2023 05/16/2025 99 99 Encounter Details Date Type Department Care Team (Late st Contact Info) Description 09/04/2023 1:00 PM ENVIRONMENTAL SERVICES ASSOCIATE Office Visit Division of Hematology in [place], [place] [address] [place] [phone] Bev Gifford APRN, C.N.P., M.S.N. [address] [place] [phone] Lymphoma Non Hodgkins (HCC) Social History Tobacco [...] any clubs o r organizations such as voodoo groups, unions, fraternal or athletic groups, or [...] Answer Date Recorded PHQ-2 Score 0 04/25/2020 [facility] [place] of Occupat ional Health - Occupational Stress [...] place to sleep or slept in a senior care (including now)? No 01/10/2023 Nutrition Answer Date [...] Sign Reading Time Taken Comments Blood Pressure 113/69 09/04/2023 12:49 PM ENVIRONMENTAL SERVICES ASSOCIATE Pulse 98 09/04/2023 12:49 PM ENVIRONMENTAL SERVICES ASSOCIATE Temperature 36.7 ??C (98 ??F) 09/04/2023 12: 49 PM ENVIRONMENTAL SERVICES ASSOCIATE Respiratory Rate - - Oxygen Saturation 96% 09/04/2023 12: 49 PM ENVIRONMENTAL SERVICES ASSOCIATE Inhaled Oxygen Concentration - - Weight 82.5 kg (181 lb 14.1 oz) 023 12:49 PM ENVIRONMENTAL SERVICES ASSOCIATE Height 175.3 cm (5' 9.02) 09/04/2023 1 2:49 PM ENVIRONMENTAL SERVICES ASSOCIATE Body Mass Index 26.85 09/04/2023 12:49 PM ENVIRONMENTAL SERVICES ASSOCIATE documented in this encounter Progress Notes * Bev Gifford APRN, C.N.P., M.S.N. - 09/04/2023 1:00 PM CST CHIEF COMPLAINT / REASON FOR VISIT DLBCL-NOS HISTORY OF PRESENT ILLNESS Oncology History Overview Note May 2023: The patient was feeling unwell with mostly postprandial nausea, vomiting, abdominalpain and inability to tolerate PO intake. Since January 2023, he lost about 40 pounds but denied fever,night sweats or palpable lumps. He was hospitalized during mid April 2023 at [facility] due to his nausea, vomiting [...] evidence of cholecystitis. During his hospital stay [facility], he had fevers and low hemoglobin in the 8-9 g per dL range as well as an ROMEO that improved with fluids. An EGD was performed on 04/24/2023 in [facility] which revealed a duodenal necrotizing ulcer which was biopsied, however, that was read as a necroinflammatory ulcer with duodenal mucosa, acute and chronic inflammation without evidence of active malignancy. He was treated with PPI and antibiotics despite no source of infection. He was discharged on 04/27/2023. April 29, 2023: The patient was readmitted after he was seen that morning in [facility] andfound to be hypotensive with a blood pressure of 78/39. He was referred to [facility] ED where he was hypotensive with SBP [...] 2023: The patient was evaluated in the [facility]. A PET CT on 05/10/2023 [...] 2023: The patient was re-evaluated in the [facility]. The patient had no new intervening issues. He noted an upset stomach intermittently. The hemoglobin is 10.4 grams/deciliter, platelet count 201296, and white count 07105. The metabolic panel was unremarkable. 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 His main issue has been an infected second toe. He did have this evaluated by his local PCP who gave a prescription incase the toe got worse. Today the toe is quite edematous with significant erythema. For cycle 5 the dose of cyclophosphamide and doxorubicin was reduced by 20 % each for tolerability as his performance status has declined after chemotherapy and is becoming more weak despite his tumor responding well. He underwent an EGD after cycle 5 which showed ulcers found in the third portion of the duodenum. He did not have any hospitalizations since his last treatment. His hemoglobin today is 7.2. He regained his appetite and says that he ate well the last couple of days without issues. His bowel movements are fairly regular. He denies any fevers, night sweats or palpable adenopathy. He does have shortness of breath which he feels is at this baseline. No chest pain or abdominal pain. He continues tonote a right foot drop. PMH: Prior CVA, HTN , HLD, thyroids [...] showed complete remission Deauville 3. . Plan: -Hold cycle 6 Preston-R-CHP today. Of note, last cycle included a dose reduction of cyclophosphamide and doxorubicin by 20 % each for tolerability as his performance status has declined after chemotherapy and is becoming more weak despite his tumor responding well. He has received Neulasta the day after treatment. - We will transfuse the patient with 1u RBCs due to his hemoglobin of 7.2. - We will treat the toe with antibiotics. Prescription send for Cephalexin 500 mg twice daily x10 days. - We will obtain another PET CT after finishing 6 cycles of treatment. #History of Rt foot drop wears an AFO brace, this predated chemotherapy and was due to a previous back surgery. RONMENTAL SERVICES ASSOCIATE documented in this encounter Plan of Treatment Upcoming Encounters Date Type Department Care Team (Latest Contact Info) Description 10/06/2023 9:04 AM ENVIRONMENTAL SERVICES ASSOCIATE - 10/06/2023 11:24 AM ENVIRONMENTAL SERVICES ASSOCIATE Surgery [facility] MAIN OR [address] [place] [phone] Cameron Saenz M.D. [address] [place] [phone] ABDOMINAL EXPLORATION, REMOVAL ABTHERA, POSSBLE BOWEL RESECTION, PROCEED INDICATED 10/11/2023 7:00 AM ENVIRONMENTAL SERVICES ASSOCIATE Appointment Department of Laboratory Medicine and Pathology, [facility] in [address] [phone] Arti Epstein M.B.B.S. [address] [place] [phone] 10/11/2023 9:00 AM ENVIRONMENTAL SERVICES ASSOCIATE Office Visit Division of Hematology in [address] [phone] Arti Epstein M.B.B.S. [address] [place] [phone] 10/11/2023 10:00 AM ENVIRONMENTAL SERVICES ASSOCIATE Infusion Department of Oncology in [address] [phone] Bev Gifford APRN, C.N.Ash., M.S.N. [address] [place] [phone] 11/19/2023 10:00 AM CDT Office Visit Division of Endocrinology in [address] [phone] West Mendoza APRN, C.N.Ash., M.S. [address] [place] [phone] 11/19/2023 2:30 PM CDT Comprehensive Visit Division of Hepatobiliary and Pancreas Surgery in [place], [place] [address] [place] [phone] Wesley Hamilton M.D. 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
--- OUTSIDE RECORDS SUMMARY | 2023-10-05 12:57 | XMS_ITS | Encounter Summary ---
Author Name Unknown Organization [facility] Address [address] [place] [id number] Care Team Providers Care Interventional Physiatrist Name Role Phone Elsewhere, Pcp Primary Care Provider Unavailabl e Reason for Visit * Reason Comments Injections Outpatient Infusion Magnesium 4g, Potass ium 20 mEq, and Fulphila inj * Episode Based Medications (Routine) - Authorized Specialty Diagnoses / Procedures Referred By Doroteo t Referred To Contact Diagnoses Lymphoma Non Hodgkins (HCC) Procedures X Molly Jarquin M.B.B.S., M.D. [address] [place] [phone] R[address] Hem [place] [address] [place] [phone] Referral ID Status Reason Start Date Expiration Date V isits Requested Visits Authorized [id number] Authorized 05/17/2023 05/16/2025 99 99 Encounter Details Date Type Department Care Team (Late st Contact Info) Description 08/13/2023 7:30 AM INDUSTRIAL RETROFIT DESIGNER Infusion Department of Infusion Therapy in [place], [place] [address] [place] [phone] Bety Castro M.D. [address] [place] [address] [phone] Lymphoma Non Hodgkins (HCC) (Primary Dx) Discharge Disposition: Home or Self Care Social [...] any clubs o r organizations such as yarsani groups, unions, fraternal or athletic groups, or [...] Answer Date Recorded PHQ-2 Score 0 04/25/2020 [facility] of Occupat ional Health - Occupational [...] place to sleep or slept in a long-term (including now)? No 01/10/2023 Nutrition Answer Date [...] Sign Reading Time Taken Comments Blood Pressure 121/56 08/13/2023 7:20 AM INDUSTRIAL RETROFIT DESIGNER Pulse 71 08/13/2023 7:20 AM INDUSTRIAL RETROFIT DESIGNER Temperature 36.4 ??C (97.5 ??F) 08/13/2023 7:20 AM CS T Respiratory Rate 17 08/13/2023 7:20 AM INDUSTRIAL RETROFIT DESIGNER Oxygen Saturation - - Inhaled Oxygen Concentration - - Weight - - Height - - Body Mass Index - - documented in this encounter Plan of Treatment Upcoming Encounters Date Type Department Care Team (Latest Contact Info) Description 10/06/2023 9:04 AM INDUSTRIAL RETROFIT DESIGNER - 10/06/2023 11:24 AM INDUSTRIAL RETROFIT DESIGNER Surgery [facility] OR [address] [place] [phone] Cameron Saenz M.D. [address] [place] [phone] ABDOMINAL EXPLORATION, REMOVAL ABTHERA, POSSBLE BOWEL RESECTION, PROCEED INDICATED 10/11/2023 7:00 AM INDUSTRIAL RETROFIT DESIGNER Appointment Department of Laboratory Medicine and Pathology, [facility], in [place], [place] [address] [place] [phone] Arti Epstein M.B.B.S. [address] [place] [phone] 10/11/2023 9:00 AM INDUSTRIAL RETROFIT DESIGNER Office Visit Division of Hematology in [place], [place] [address] [place] [phone] Arti Epstein M.B.B.S. [address] [place] [phone] 10/11/2023 10:00 AM INDUSTRIAL RETROFIT DESIGNER Infusion Department of Oncology in [place], [place] [address] [place] [phone] Bev Gifford APRN, C.N.P., M.S.N. [address] [place] [phone] 11/19/2023 10:00 AM CDT Office Visit Division of Endocrinology in [place], [place] [address] [place] [phone] West Mendoza APRN, C.N.P., M.S. [address] [place] [phone] 11/19/2023 2:30 PM CDT Comprehensive Visit Division of Hepatobiliary and Pancreas Surgery in [address] [phone] Wesley Hamilton M.D. [address] [place] [phone] Scheduled Procedures Name Priority Associated Diagnoses Date/Ti me LAPAROTOMY - ABDOMINAL WASHOUT Ischemia Intestinal With Stricture (HCC) 10/06/2023 9:04 AM INDUSTRIAL RETROFIT DESIGNER documented as of this encounter Visit Diagnoses Diagnosis Lymphoma Non Hodgkins (HCC)- Primary Ischemia Intestinal With Stricture (HCC) documented in this encounter Administered Medications Inactive Administered Medications - up to 3 most recent administrations Medication Order MAR Action Action Date Dose Rate Site heparin flush 500 Units 500 Units, intra-catheter, As needed, line care, Starting on Sat08/13/23 at 0707, When no infusion to maintain patency: For IVAD accessed, not in use, and/or prior to hospital discharge, flush every 7 days after 0.9% preservative-free NaCL flush. For IVAD NOT accessed or used, flush every 4 weeks after 0.9% preservative-free NaCL flush. Given 08/13/2023 11:21 AM INDUSTRIAL RETROFIT DESIGNER 500 Units magnesium sulfate in water IVPB 4 g 4 g, intravenous, at 25 mL/hr, Administer over 240 Minutes, Once, On Sat08/13/23 at 0730, For 1 dose New Bag 08/13/2023 7:32 AM INDUSTRIAL RETROFIT DESIGNER 4 g 25 mL/hr NaCl 0.9% infusion 10-250 mL/hr, intravenous, As needed, Post Medications (Hazardous/Low Fluid Volume), Starting on Sat08/13/23 at 0707, Infuse at the same rate as the medication until tubing cleared of medication, then discard. New Bag 08/13/2023 10:03 AM INDUSTRIAL RETROFIT DESIGNER 100 mL/hr 100 mL/hr pegfilgrastim-jmdb injection 6 mg (FULPHILA) 6 mg, subcutaneous, Once, On Sat08/13/23 at 0730, For 1 dose Given 08/13/2023 7:48 AM INDUSTRIAL RETROFIT DESIGNER 6 mg Right Lower Abdomen potassium chloride IVPB 10 mEq 10 mEq, intravenous, Every 1 hour, First dose on Sat08/13/23 at 0730, For 2 doses, max 10 mEq/hour New Bag 08/13/2023 8:59 AM INDUSTRIAL RETROFIT DESIGNER 10 mEq 100 mL/hr New Bag 08/13/2023 7:37 AM INDUSTRIAL RETROFIT DESIGNER 10 mEq 100 mL/hr sodium chloride 0.9 % injection 10 mL 10 mL, intra-catheter, As needed, line care, Starting on Sat08/13/23 at 0707, When IVAD Accessed and in Use: Flush prior to and following infusion, between multiple consecutive infusions, and prior to blood sampling. Given 08/13/2023 7:32 AM INDUSTRIAL RETROFIT DESIGNER 10 mL sodium chloride 0.9 % injection 20 mL 20 mL, intra-catheter, As needed, line care, Starting on Sat08/13/23 at 0707, When IVAD Accessed and in Use: Flush post blood transfusion or post blood sampling. Given 08/13/2023 11:21 AM INDUSTRIAL RETROFIT DESIGNER 20 mL documented in this encounter Additional Health Concerns Infection Onset Date Last Indicated Resolved Time Protective Environment 05/17/2023 05/17/2023 documented as of this encounter Care Teams Interventional Physiatrist Relationship Specialty Start Date End Date Elsewhere, Pcp PCP - General Internal Medicine 05/11/23 09/13/23 documented as of this encounter
--- OUTSIDE RECORDS SUMMARY | 2023-10-05 12:57 | XMS_ITS | Encounter Summary ---
Author Name Unknown Organization [facility] Address [address] [place] [address] Care Team Providers Care Manager Of Radiology Name Role Phone Elsewhere, Pcp Primary Care Provider Unavailabl e Encounter Details Date Type Department Care Team (Late st Contact Info) Description 08/19/2023 8:50 AM CORPORATE COMMUNICATIONS MANAGER Lab Department of Laboratory Medicine and Pathology, [facility], in [place], [place] [address] [place] [phone] Bety Castro M.D. [address] [place] [phone] Lymphoma Non Hodgkins (HCC) Social History Tobacco [...] often do you attend chur ch or holiness services? Never 01/10/2023 Do you belong to any clubs o r organizations such as mandaeism groups, unions, fraternal or athletic groups, or [...] Answer Date Recorded PHQ-2 Score 0 04/25/2020 [facility] [place] of Occupat ional Health - Occupational Stress [...] (Latest Contact Info) Description 10/06/2023 9:04 AM CORPORATE COMMUNICATIONS MANAGER - 10/06/2023 11:24 AM CORPORATE COMMUNICATIONS MANAGER Surgery [facility] OR [address] [place] [phone] Cameron Saenz M.D. [address] [place] [phone] ABDOMINAL EXPLORATION, REMOVAL ABTHERA, POSSBLE BOWEL RESECTION, PROCEED INDICATED 10/11/2023 7:00 AM CORPORATE COMMUNICATIONS MANAGER Appointment Department of Laboratory Medicine and Pathology, [facility], in [place], [place] [address] [place] [phone] Arti Epstein M.B.B.S. [address] [place] [phone] 10/11/2023 9:00 AM CORPORATE COMMUNICATIONS MANAGER Office Visit Division of Hematology in [place], [place] [address] [place] [phone] Arti Epstein M.B.B.S. [address] [place] [phone] 10/11/2023 10:00 AM CORPORATE COMMUNICATIONS MANAGER Infusion Department of Oncology in [place], [place] [address] [place] [phone] Bev Gifford APRN, C.N.P., M.S.N. [address] [place] [phone] 11/19/2023 10:00 AM CDT Office Visit Division of Endocrinology in [place], [place] [address] [place] [phone] West Mendoza APRN, C.N.P., M.S. [address] [place] [phone] 11/19/2023 2:30 PM CDT Comprehensive Visit Division of Hepatobiliary and Pancreas Surgery in [place], [place] [address] [place] [phone] Wesley Hamilton M.D. [address] [place] [phone] Scheduled Procedures Name Priority Associated Diagnoses Date/Ti me LAPAROTOMY - ABDOMINAL WASHOUT Ischemia Intestinal With Stricture (HCC) 10/06/2023 9:04 AM CORPORATE COMMUNICATIONS MANAGER documented as of this encounter Procedures Procedure Name Priority Date/Time Associated Diagnosis Comments CBC WITH DIFFERENTIAL, B Routine 08/19/2023 8:05 AM CORPORATE COMMUNICATIONS MANAGER Lymphoma Non Hodgkins (HCC) documented in this encounter Results * (ABNORMAL) CBC with Differential, Blood (08/19/2023 8:05 AM CORPORATE COMMUNICATIONS MANAGER) Hemoglobin 7.5(L) 13.2 - 16.6 g/dL 08/19/2023 9:26 AM CORPORATE COMMUNICATIONS MANAGER DTL Hematocrit 23.6(L) 38.3 - 48.6 % 08/19/2023 9:26 AM CORPORATE COMMUNICATIONS MANAGER DTL Erythrocytes 2.63(L) 4.35 - 5.65 x10(12)/L 08/19/2023 9:26 AM CORPORATE COMMUNICATIONS MANAGER DTL MCV 89.7 78.2 - 97.9 fL 08/19/2023 9:26 AM CORPORATE COMMUNICATIONS MANAGER DTL RBC Distrib Width 20.6(H) 11.8 - 14.5 % 08/19/2023 9:26 AM CORPORATE COMMUNICATIONS MANAGER DTL Platelet Count 129(L) 135 - 317 x10(9)/L 08/19/2023 9:26 AM CORPORATE COMMUNICATIONS MANAGER DTL Leukocytes 0.5(L) 3.4 - 9.6 x10(9)/L 08/19/2023 9:26 AM CORPORATE COMMUNICATIONS MANAGER DTL Neutrophils 0.26(CL) 1.56 - 6.45 x10(9)/L 08/19/2023 10:41 AM CORPORATE COMMUNICATIONS MANAGER DHPM Comment:Rechecked Lymphocytes 0.09(L) 0.95 - 3.07 x10(9)/L 08/19/2023 10:41 AM CORPORATE COMMUNICATIONS MANAGER DTL Monocytes 0.07(L) 0.26 - 0.81 x10(9)/L 08/19/2023 10:41 AM CORPORATE COMMUNICATIONS MANAGER DTL Eosinophils 0.04 0.03 - 0.48 x10(9)/L 08/19/2023 10:41 AM CORPORATE COMMUNICATIONS MANAGER DTL Basophils <0.03 0.01 - 0.08 x10(9)/L 08/19/2023 10:41 AM CORPORATE COMMUNICATIONS MANAGER DTL Blood (Blood, Venous) 08/19/2023 8:05 AM CORPORATE COMMUNICATIONS MANAGER 08/19/2023 8:37 AM CORPORATE COMMUNICATIONS MANAGER Bety Castro M.D. LAB BLO OD ADD-ON [facility] [address] [place] [address], [place] DTL [facility] [address] [place] [address] 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 Given 08/19/2023 8:19 AM CORPORATE COMMUNICATIONS MANAGER 500 Units documented in this encounter Additional Health Concerns Infection Onset Date Last Indicated Resolved Time Protective Environment 05/17/2023 05/17/2023 documented as of this encounter Care Teams Manager Of Radiology Relationship Specialty Start Date End Date Elsewhere, Pcp PCP - General Internal Medicine 05/11/23 09/13/23 documented as of this encounter
--- OUTSIDE RECORDS SUMMARY | 2023-10-05 12:57 | XMS_ITS | Encounter Summary ---
Author Name Unknown Organization [facility] Address [address] [place] [address] Care Team Providers Care Rigging Engineer Name Role Phone Elsewhere, Pcp Primary Care Provider Unavailabl e Encounter Details Date Type Department Care Team (Latest Contact Info) Description 08/13/2023 2:10 PM NIGHT TIME NANNY Ancillary Procedure Department of Gastroenterology Social History [...] friends, or neighbors? Three times a week 05/04/20 23 How often do you get togethe r with friends or relatives? Three times a week 01/10/2023 How often do you attend chur ch or church services? Never 01/10/2023 Do you belong to any clubs o r organizations such as jain groups, unions, fraternal or athletic groups, or [...] Answer Date Recorded PHQ-2 Score 0 04/25/2020 [facility] of Occupat ional Health - Occupational [...] place to sleep or slept in a usp (including now)? No 01/10/2023 Nutrition Answer Date [...] (Latest Contact Info) Description 10/06/2023 9:04 AM NIGHT TIME NANNY - 10/06/2023 11:24 AM NIGHT TIME NANNY Surgery [facility] OR [address] [place] [phone] Cameron Saenz M.D. [address] [place] [phone] ABDOMINAL EXPLORATION, REMOVAL ABTHERA, POSSBLE BOWEL RESECTION, PROCEED INDICATED 10/11/2023 7:00 AM NIGHT TIME NANNY Appointment Department of Laboratory Medicine and Pathology, [facility], in [place], [place] [address] [place] [phone] Arti Epstein M.B.B.S. [address] [place] [phone] 10/11/2023 9:00 AM NIGHT TIME NANNY Office Visit Division of Hematology in [place], [place] [address] [place] [phone] Arti Epstein M.B.B.S. [address] [place] [phone] 10/11/2023 10:00 AM NIGHT TIME NANNY Infusion Department of Oncology in [address] [phone] Bev Gifford APRN, C.N.P., M.S.N. [address] [place] [phone] 11/19/2023 10:00 AM CDT Office Visit Division of Endocrinology in [place], [place] [address] [place] [phone] West Mendoza APRN, C.N.P., M.S. [address] [place] [phone] 11/19/2023 2:30 PM CDT Comprehensive Visit Division of Hepatobiliary and Pancreas Surgery in [address] [phone] Wesley Hamilton M.D. [address] [place] [phone] Scheduled Procedures Name Priority Associated Diagnoses Date/Ti me LAPAROTOMY - ABDOMINAL WASHOUT Ischemia Intestinal With Stricture (HCC) 10/06/2023 9:04 AM NIGHT TIME NANNY documented as of this encounter Procedures Procedure Name Priority Date/Time Associated Diagnosis Comments GASTROENTEROLOGY IMAGE EXAM Routine 08/13/2023 2:10 PM NIGHT TIME NANNY documented in this encounter Results * Upper GI endoscopy-Gastroenterology Image Exam (08/13/2023 2:10 PM NIGHT TIME NANNY) 08/13/2023 2:06 PM NIGHT TIME NANNY Narrative IIMS - 08/13/2023 3:12 PM NIGHT TIME NANNY This order has been created and auto-finalized [...] documented as of this encounter Care Teams Rigging Engineer Relationship Specialty Start Date End Date Elsewhere, Pcp PCP - General Internal Medicine 05/11/23 09/13/23 documented as of this encounter
--- OUTSIDE RECORDS SUMMARY | 2023-10-05 12:57 | XMS_ITS | Encounter Summary ---
Author Name Unknown Organization [facility] Address [address] [place] [address] Care Team Providers Care Produce Shipper Name Role Phone Elsewhere, Pcp Primary Care Provider Unavailabl e Encounter Details Date Type Department Care Team (Latest Contact Info) Description 08/13/2023 2:20 PM LINSEED CAKE TRIMMER Anesthesia Event Division of Gastroenterology in [place], [place] [address] [place] [address] Ashia Barakat APRN, SAL [address] [place] [phone] Nandini Davis M.D. [address] [place] [phone] Anesthesia Record Procedure Summary Procedure Name Responsible Anesthesiologist Anesthesia Start Time Anesthesia Stop Time EGD (ESOPHAGEALGASTRODU ODENOSCOPY) Ashia Barakat APRN, SAL 08/13/23 1420 08/13/23 1449 Events Date Time Event Comment 08/13/2023 1409 1420 An Start Machine/Equipme nt Checked Infection Precautions Followed Procedure/Site Verified NPO Status Verified Supine Standard ASA Monitors Applied 1420 Turnover to Proceduralist 1429 Proc Start 1435 Proc Fin 1435 Turnover to ANE Staff 1441 an stop data 1449 An End I completed my handoff to [...] Meds Name Total fentanyl injection 50 mcg/mL 100 mcg lidocaine 2% (mg) injection 40 mg propofol 10 mg/mL infusion 128.16 mg Lactated Ringers Free Drip 400 mL * [...] Freeman/Dr. Guevara 07/22/23 1023 by Leighton Gotti RJohannaNJohanna Wound 08/07/23; 0800; Y; Traumatic; Toe 2nd; Anterior, Left 08/07/23 0800 by Carolee Gonzalez RJohannaNJohanna (RETIRED- use LDA Wound) Puncture 05/14/23; 1616; No; Abdomen; Medial, Upper; biopsy site; 09/15/23; 0238 05/14/23 1616 by Teresa Vaughn, RJohannaNJohanna 09/15/23 0238 by Jennifer Aceves RJohannaN. documented in this encounter Social History Tobacco [...] How often do you attend chur or judaism services? Never 01/10/2023 Do you belong to [...] Answer Date Recorded PHQ-2 Score 0 04/25/2020 [facility] of Occupat ional Health - [...] place to sleep or slept in a custodial (including now)? No 01/10/2023 Nutrition Answer Date [...] OR Notes * Anesthesia Postprocedure Evaluation - Ashia Barakat APRN, CRNA - 08/13/2023 2:49 PM CST Patient: Hola Lau Procedure Summary Date: 08/13/23 Room / Location: Division of Gastroenterology in [place], [place] Anesthesia Start: 1420 Anesthesia Stop: 1449 Procedure: EGD (ESOPHAGEALGASTRODUODENOSCOPY) Diagnosis: Lymphoma Non Hodgkins (HCC) Scheduled Providers: Beata Fajardo M.D.; Ashia Barakat APRN, CRNA Responsible Provider: Ashia Barakat APRN, CRNA Anesthesia Type: MAC ASA Status: 3 Anesthesia Type: MAC Last vitals Vitals Value Taken Time BP 95/57 08/13/23 1445 Temp Pulse Resp 14 08/13/23 1448 SpO2 Vitals shown include unfiled device data. Please reference Vitals flowsheet for most recent vital signs. Anesthesia Post Evaluation Patient Disposition: dismissal Cardiovascular status: hemodynamics (HR & BP) acceptable Respiratory status: patent airway with spontaneous effort Temperature: normothermic Oxygen requirements: room air Level of consciousness: awake Pain score: pain adequately controlled and/or at baseline Post Op nausea/vomiting: none Hydration status: euvolemic EED CAKE TRIMMER * Anesthesia Preprocedure Evaluation - Nandini Davis M.D. - 08/13/2023 2:08 PM CST Preprocedure Anesthesia & H&P Assessment Procedure Summary Date/Time: 08/13/23 1330 Scheduled providers: Beata Fajardo M.D.; Ashia Barakat APRN, CRNA Procedure: EGD (ESOPHAGEALGASTRODUODENOSCOPY) Diagnosis: Lymphoma Non Hodgkins (HCC) [C85.90] Location: Division of Gastroenterology in [place], [place] Pertinent components of the patient's history [...] (+) Anemia (+) Thrombocytopenia (HCC) Other (+) Foot Drop Right (+) Nicotine Dependence Chewing Tobacco (+) Obesity [...] State of Health:: healthy appearing and calm Neurological Neurologic Assessment: alert Dental Normal ASSESSMENT / PLAN ANESTHESIA PLAN ASA: 3 Anesthesia Plan: MAC Patient seen and allergies reviewed, anesthesia plan and risks discussed directly with patient /legal guardian or through an cable installation technician. 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 [address] [place] [phone] ABDOMINAL EXPLORATION, REMOVAL ABTHERA, POSSBLE BOWEL RESECTION, PROCEED INDICATED 10/11/2023 7:00 AM LINSEED CAKE TRIMMER Appointment Department of Laboratory Medicine and Pathology, [facility], in [place], [place] [address] [place] [phone] Arti Epstein M.B.B.S. [address] [place] [phone] 10/11/2023 9:00 AM LINSEED CAKE TRIMMER Office Visit Division of Hematology in [place], [place] [address] [place] [phone] Arti Epstein M.B.B.S. [address] [place] [phone] 10/11/2023 10:00 AM LINSEED CAKE TRIMMER Infusion Department of Oncology in [place], [place] [address] [place] [phone] Bev Gifford APRN, C.N.P., M.S.N. [address] [place] [phone] 11/19/2023 10:00 AM CDT Office Visit Division of Endocrinology in [place], [place] [address] [place] [address] [phone] West Mendoza APRN, C.N.P., M.S. [address] [place] [phone] 11/19/2023 2:30 PM CDT Comprehensive Visit Division of Hepatobiliary and Pancreas Surgery in [place], [place] [address] [place] [phone] Wesley Hamilton M.D. [address] [place] [address] [phone] Scheduled Procedures Name Priority Associated Diagnoses Date/Ti me LAPAROTOMY - ABDOMINAL WASHOUT Ischemia Intestinal With Stricture (HCC) 10/06/2023 9:04 AM LINSEED CAKE TRIMMER documented as of this encounter Visit Diagnoses Not on filedocumented in this encounter Administered Medications Inactive Administered Medications - up to 3 most recent administrations Medication Order MAR Action Action Date Dose Rate Site fentaNYL injection (SUBLIMAZE) intravenous, As needed, Starting on Sat08/13/23 at 1425, Anesthesia Intra-op Given 08/13/2023 2:39 PM LINSEED CAKE TRIMMER 25 mcg Given 08/13/2023 2:35 PM LINSEED CAKE TRIMMER 25 mcg Given 08/13/2023 2:25 PM LINSEED CAKE TRIMMER 50 mcg Lactated Ringer's intravenous, Continuous Infusion: Per Instructions PRN, Starting on Sat08/13/23 at 1420, Anesthesia Intra-op New Bag 08/13/2023 2:20 PM LINSEED CAKE TRIMMER lidocaine (PF) (cardiac) injection intravenous, As needed, Starting on e 08/13/23 at 1425, Anesthesia Intra-op Given 08/13/2023 2:25 PM LINSEED CAKE TRIMMER 40 mg propofol 10 mg/mL infusion (DIPRIVAN) intravenous, Continuous Infusion: Per Instructions PRN, Starting on e 08/13/23 at 1425, Anesthesia Intra-op Rate/Dose Change 08/13/2023 2:31 PM LINSEED CAKE TRIMMER 100 mcg/kg/min 48.06 mL/hr New Bag 08/13/2023 2:25 PM LINSEED CAKE TRIMMER 200 mcg/kg/min 96.12 mL/ hr documented in this encounter Additional Health Concerns Infection Onset Date Last Indicated Resolved Time Protective Environment 05/17/2023 05/17/2023 documented as of this encounter Care Teams Produce Shipper Relationship Specialty Start Date End Date Elsewhere, Pcp PCP - General Internal Medicine 05/11/23 09/13/23 documented as of this encounter
--- OUTSIDE RECORDS SUMMARY | 2023-10-05 12:57 | XMS_ITS | Encounter Summary ---
Author Name Unknown Organization [facility] Address [address] [place] [phone] Care Team Providers Care It Infrastructure Engineer Name Role Phone Elsewhere, Pcp Primary Care Provider Unavailabl e Reason for Visit * Reason Comments Med Refill Encounter Details Date Type Department Care Team ([facility] st Contact Info) Description 08/28/2023 Refill Division of Community Internal Medicine, [facility] in [place], [place] [address] [place] [phone] Roseann Sheldon M.B., B.Ch., B.A.O. [address] [place] [phone] Med Refill Social History Tobacco Use Types [...] any clubs o r organizations such as religion groups, unions, fraternal or athletic groups, or [...] Answer Date Recorded PHQ-2 Score 0 04/25/2020 [facility] of Occupat ional Health - Occupational Stress [...] encounter Miscellaneous Notes * Telephone Encounter - Suzanna Fairbanks - 08/29/2023 8:52 AM CST PCP Elsewhere DEVELOPER PROGRAMMER documented in this encounter Plan of Treatment Upcoming Encounters Date Type Department Care Team (Latest Contact Info) Description 10/06/2023 9:04 AM WEB DEVELOPER PROGRAMMER - 10/06/2023 11:24 AM WEB DEVELOPER PROGRAMMER Surgery [facility] MAIN OR [address] [place] [phone] Cameron Saenz M.D. [address] [place] [phone] ABDOMINAL EXPLORATION, REMOVAL ABTHERA, POSSBLE BOWEL RESECTION, PROCEED INDICATED 10/11/2023 7:00 AM WEB DEVELOPER PROGRAMMER Appointment Department of Laboratory Medicine and Pathology, [facility], in [place], [place] [address] [place] [phone] Arti Epstein M.B.B.S. [address] [place] [phone] 10/11/2023 9:00 AM WEB DEVELOPER PROGRAMMER Office Visit Division of Hematology in [address] [phone] Arti Epstein M.B.B.S. [address] [place] [phone] 10/11/2023 10:00 AM WEB DEVELOPER PROGRAMMER Infusion Department of Oncology in [address] [phone] Bev Gifford APRN, C.N.P., M.S.N. [address] [place] [phone] 11/19/2023 10:00 AM CDT Office Visit Division of Endocrinology in [address] [phone] West Mendoza APRN, C.N.P., M.S. [address] [place] [phone] 11/19/2023 2:30 PM CDT Comprehensive Visit Division of Hepatobiliary and Pancreas Surgery in [place], [place] [address] [place] [phone] Wesley Hamilton M.D. [address] [place] [phone] Scheduled Procedures Name Priority Associated Diagnoses Date/Ti me LAPAROTOMY - ABDOMINAL WASHOUT Ischemia Intestinal With Stricture (HCC) 10/06/2023 9:04 AM WEB DEVELOPER PROGRAMMER documented as of this encounter Visit Diagnoses Not on filedocumented in this encounter Additional Health Concerns Infection Onset Date Last Indicated Resolved Time Protective Environment 05/17/2023 05/17/2023 documented as of this encounter Care Teams It Infrastructure Engineer Relationship Specialty Start Date End Date Elsewhere, Pcp PCP - General Internal Medicine 05/11/23 09/13/23 documented as of this encounter
--- OUTSIDE RECORDS SUMMARY | 2023-10-05 12:57 | XMS_ITS | Encounter Summary ---
Author Name Unknown Organization [facility] Address [address] [place] [address] Care Team Providers Care Director Prison Name Role Phone Elsewhere, Pcp Primary Care Provider Unavailabl e Reason for Visit * Reason Onset Date Comments Swollen toe concerns 08/27/2023 Encounter Details Date Type Department Care Team (Latest Contact Info) Description 08/27/2023 Clinical Communication Division of Hematology in [place], [place] [address] [place] [phone] Hola Claudio M.D. [address] [place] [phone] Swollen toe concerns Social History Tobacco Use Types Packs/Day Years Used Date Smoking Tobacco: Former Cigarettes 1 22 Q uit: 02/07/1989 Passive Smoke Exposure: Never Smokeless Tobacco: Former Snuff, Chew Quit: 04/18/2023 Alcohol Use Standard Drinks/Week Comments Not Currently 3 (1 standard drink = 0.6 oz pur e alcohol) [facility] Utilities Answer Date Recorded In the [...] Answer Date Recorded PHQ-2 Score 0 04/25/2020 [facility] of Occupat ional Health - Occupational Stress [...] your living situation today? I have a [facility] place to live 09/15/2023 Education Answer [...] encounter Miscellaneous Notes * Telephone Encounter - Melanie Diez R.N. - 08/27/2023 9:43 AM PURCHASING INTERN ASSESSMENT Diagnosis/ treatment: Diffuse large B-cell lymphoma. Preston-R-CHP, cycle 5 08/12/23. Pegfilgrastim on 08/13/23. Last Hematology appointment: 08/12/[address] Claudio Next Hematology appointment: 09/04/23 Primary glue drier operator: Dr. Flores / Dr. Castro RN spoke to the patient and . Patient tore his left second toe nail 2-3 weeks ago at which timehe used ointment on the area and continued to monitor it. At present, the toenail is gone. He did have it evaluated when he was in the hospital in July. The nurse treated it then and advised him to keep an eye on it. Last night he noticed it was red, swollen, and painful. He wears his socks a lot so hadn't noticed anything prior to that. The top of his foot is starting to swell also. He denies fever or chills. He has had a productive cough for a few weeks, nose and eyes are draining as well. He denies chest pressure or pain or sore throat. He uses a CPAP at night with continuous water pump that provides heated warm moisture; has also been using throat lozenges. The cough/congestion is heavy and hasn't gotten better or worse, doesn't seem to be going away. They are concerned because of his symptoms, and his lymphoma and type 2 diabetes. He does have a primary care provider close to home. RN advised he should call there to have his toe evaluated in person. They will call to make an appointment. His local provider can call us to discuss if needed. [facility] to them. PLAN Plan as above for patient to be seen locally. The local provider can call us to discuss, or patientcan call to let us know their recommendations. RN will send message and update to Dr. Castro. Disposition/Recommendation: patient to schedule appointment and will call. Information/Education: patient/caller able to teach back. Caller agreeable to plan of care: yes. The following references were used: nursing clinical judgement. HASING INTERN documented in this encounter Plan of Treatment Upcoming Encounters Date Type Department Care Team (Latest Contact Info) Description 10/06/2023 9:04 AM PURCHASING INTERN - 10/06/2023 11:24 AM PURCHASING INTERN Surgery [facility] MAIN OR [address] [place] [phone] Cameron Saenz M.D. [address] [place] [phone] ABDOMINAL EXPLORATION, REMOVAL ABTHERA, POSSBLE BOWEL RESECTION, PROCEED INDICATED 10/11/2023 7:00 AM PURCHASING INTERN Appointment Department of Laboratory Medicine and Pathology, [facility], in [place], [place] [address] [place] [phone] Arti Epstein M.B.B.S. [address] [place] [phone] 10/11/2023 9:00 AM PURCHASING INTERN Office Visit Division of Hematology in [place], [place] [address] [place] [phone] Arti Epstein M.B.B.S. [address] [place] [phone] 10/11/2023 10:00 AM PURCHASING INTERN Infusion Department of Oncology in [place], [place] [address] [place] [phone] Bev Gifford APRN, C.N.P., M.S.N. [address] [place] [phone] 11/19/2023 10:00 AM CDT Office Visit Division of Endocrinology in [place], [place] [address] [place] [phone] West Mendoza APRN, C.N.P., M.S. [address] [place] [phone] 11/19/2023 2:30 PM CDT Comprehensive Visit Division of Hepatobiliary and Pancreas Surgery in [place], [place] [address] [place] [phone] Wesley Hamilton M.D. [address] [place] [phone] Scheduled Procedures Name Priority Associated Diagnoses Date/Ti me LAPAROTOMY - ABDOMINAL WASHOUT Ischemia Intestinal With Stricture (HCC) 10/06/2023 9:04 AM PURCHASING INTERN documented as of this encounter Visit Diagnoses Not on filedocumented in this encounter Additional Health Concerns Infection Onset Date Last Indicated Resolved Time Protective Environment 05/17/2023 05/17/2023 COVID19 Pending 09/14/2023 09/14/2023 09/14/2023 8 :59 PM PURCHASING INTERN documented as of this encounter Care Teams Director Prison Relationship Specialty Start Date End Date Elsewhere, Pcp PCP - General Internal Medicine 09/14/23 documented as of this encounter
--- OUTSIDE RECORDS SUMMARY | 2023-10-05 12:58 | XMS_ITS | Encounter Summary ---
Author Name Unknown Organization [facility] Address [address] [place] [address] Care Team Providers Care Hardware Engineer Name Role Phone Elsewhere, Pcp Primary Care Provider Unavailabl e Reason for Visit * Reason Onset Date Comments Med Question 08/08/2023 Treatment Questions 08/08/2023 Encounter Details Date Type Department Care Team (Latest Contact Info) Description 08/08/2023 Clinical Communication Division of Hematology in [place], [place] [address] [place] [phone] Bety Castro M.D. [address] [place] [phone] Med Question; Treatment Questions Social History Tobacco Use Types Packs/Day Years [...] How often do you attend chur or church services? Never 01/10/2023 Do you belong to any clubs o r organizations such as latter day groups, unions, fraternal or athletic groups, or [...] Answer Date Recorded PHQ-2 Score 0 04/25/2020 [facility] [place] of Occupat ional Health - Occupational Stress [...] (Latest Contact Info) Description 10/06/2023 9:04 AM COMPUTER OPERATIONS MANAGER - 10/06/2023 11:24 AM COMPUTER OPERATIONS MANAGER Surgery [facility] MAIN OR [address] [place] [phone] Cameron Saenz M.D. [address] [place] [phone] ABDOMINAL EXPLORATION, REMOVAL ABTHERA, POSSBLE BOWEL RESECTION, PROCEED INDICATED 10/11/2023 7:00 AM COMPUTER OPERATIONS MANAGER Appointment Department of Laboratory Medicine and Pathology, [facility], in [place], [place] [address] [place] [phone] Arti Epstein M.B.B.S. [address] [place] [phone] 10/11/2023 9:00 AM COMPUTER OPERATIONS MANAGER Office Visit Division of Hematology in [place], [place] [address] [place] [phone] Arti Epstein M.B.B.S. [address] [place] [address] [phone] 10/11/2023 10:00 AM COMPUTER OPERATIONS MANAGER Infusion Department of Oncology in [place], [place] [address] [place] [phone] Bev Gifford APRN, C.N.P., M.S.N. [address] [place] [phone] 11/19/2023 10:00 AM CDT Office Visit Division of Endocrinology in [place], [place] [address] [place] [phone] West Mendoza APRN, C.N.P., M.S. [address] [place] [address] [phone] 11/19/2023 2:30 PM CDT Comprehensive Visit Division of Hepatobiliary and Pancreas Surgery in [place], [place] [address] [place] [phone] Wesley Hamilton M.D. [address] [place] [phone] Scheduled Procedures Name Priority Associated Diagnoses Date/Ti me LAPAROTOMY - ABDOMINAL WASHOUT Ischemia Intestinal With Stricture (HCC) 10/06/2023 9:04 AM COMPUTER OPERATIONS MANAGER documented as of this encounter Visit Diagnoses Not on filedocumented in this encounter Additional Health Concerns Infection Onset Date Last Indicated Resolved Time Protective Environment 05/17/2023 05/17/2023 documented as of this encounter Care Teams Hardware Engineer Relationship Specialty Start Date End Date Elsewhere, Pcp PCP - General Internal Medicine 05/11/23 09/13/23 documented as of this encounter
--- OUTSIDE RECORDS SUMMARY | 2023-10-05 12:58 | XMS_ITS | Encounter Summary ---
Author Name Unknown Organization [facility] Address [address] [place] [phone] Care Team Providers Care Field Cashier Name Role Phone Elsewhere, Pcp Primary Care Provider Unavailabl e Reason for Visit * Outpatient (Routine) - Closed Specialty Diagnoses / Procedures Referred By Conttracy t Referred To Contact Diagnoses Lymphoma Non Hodgkins (HCC) Procedures EGD (EsophagealGastroDuodenoscopy ) Roseann Sheldon M.B., B.Ch., B.A.O. [address] [place] [phone] [facility] Referral ID Status Reason Start Date Expiration Date Visits Re quested Visits Authorized [id number] Closed 08/07/2023 08/06/2024 1 1 Encounter Details Date Type Department Care Team (Latest Contact Info) Description 08/08/2023 11:[address] [facility] Hospital Encounter Division of Gastroenterology in [place] [address] [place] [phone] Roseann Sheldon M.B., B.Ch., B.A.O. [address] [place] [phone] Canceled (Clinic: Request) Discharge Disposition: Home or Self Care Social [...] any clubs o r organizations such as baptist groups, unions, fraternal or athletic groups, or [...] Answer Date Recorded PHQ-2 Score 0 04/25/2020 [facility] of Occupat ional [facility] - Occupational Stress Questionnaire Answer Date Recorded [...] place to sleep or slept in a mcc (including now)? No 01/10/2023 Nutrition Answer Date [...] PM CDT documented as of this encounter Medications at Time of Discharge [...] HOLDNot taking during chemo 0 08/07/2023 10/01/2023 predniSONE (DELTASONE) 50 mg tabletIndications:Lymp marimar Non [...] chemo day) 10 tablet 4 07/23/2023 09/04/2023 documented as of this encounter Plan of Treatment Upcoming Encounters Date Type Department Care Team (Latest Contact Info) Description 10/06/2023 9:04 AM SALES AND IN HOME DELIVERY SPECIALIST - 10/06/2023 11:24 AM SALES AND IN HOME DELIVERY SPECIALIST Surgery [facility] MAIN OR [address] [place] [phone] Cameron Saenz M.D. [address] [place] [phone] ABDOMINAL EXPLORATION, REMOVAL ABTHERA, POSSBLE BOWEL RESECTION, PROCEED INDICATED 10/11/2023 7:00 AM SALES AND IN HOME DELIVERY SPECIALIST Appointment Department of Laboratory Medicine and Pathology, [facility], in [place], [place] [address] [place] [phone] Arti Epstein M.B.B.S. [address] [place] [phone] 10/11/2023 9:00 AM SALES AND IN HOME DELIVERY SPECIALIST Office Visit Division of Hematology in [place], [place] [address] [place] [phone] Arti Epstein M.B.B.S. [address] [place] [phone] 10/11/2023 10:00 AM SALES AND IN HOME DELIVERY SPECIALIST Infusion Department of Oncology in [place], [place] [address] [place] [phone] Bev Gifford APRN, C.N.P., M.S.N. [address] [place] [phone] 11/19/2023 10:00 AM CDT Office Visit Division of Endocrinology in [place], [place] [address] [place] [phone] West Mendoza APRN, C.N.P., M.S. [address] [place] [phone] 11/19/2023 2:30 PM CDT Comprehensive Visit Division of Hepatobiliary and Pancreas Surgery in [place], [place] [address] [place] [phone] Wesley Hamilton M.D. [address] [place] [phone] Scheduled Procedures Name Priority Associated Diagnoses Date/Ti me LAPAROTOMY - ABDOMINAL WASHOUT Ischemia Intestinal With Stricture (HCC) 10/06/2023 9:04 AM SALES AND IN HOME DELIVERY SPECIALIST documented as of this encounter Procedures Procedure Name Priority Date/Time Associated Diagnosis Comments EGD (ESOPHAGEALGASTRODUODE NOSCOPY) Routine 08/13/2023 2:06 PM SALES AND IN HOME DELIVERY SPECIALIST Lymphoma Non Hodgkins (HCC) documented in this encounter Visit Diagnoses Not on filedocumented in this encounter Additional Health Concerns Infection Onset Date Last Indicated Resolved Time Protective Environment 05/17/2023 05/17/2023 documented as of this encounter Care Teams Field Cashier Relationship Specialty Start Date End Date Elsewhere, Pcp PCP - General Internal Medicine 05/11/23 09/13/23 documented as of this encounter
--- OUTSIDE RECORDS SUMMARY | 2023-10-05 12:58 | XMS_ITS | Encounter Summary ---
Author Name Unknown Organization [facility] Address [address] [place] [id number] Care Team Providers Care Preschool Head Teacher Name Role Phone Elsewhere, Pcp Primary Care Provider Unavailabl e Reason for Visit * Reason Onset Date Comments Post Hospital Follow-up 08/07/2023 Encounter Details Date Type Department Care Team (Latest Contact Info) Description 08/07/2023 Clinical Communication [facility] [address] [place] [phone] Roseann Sheldon M.B., B.Ch., B.A.O. [address] [place] [phone] Post Hospital Follow-up Social History Tobacco Use [...] often do you attend chur ch or religion services? Never 01/10/2023 Do you belong to [...] Date Recorded PHQ-2 Score 0 04/25/2020 [facility] of Occupat ional Health - Occupational Stress [...] (Latest Contact Info) Description 10/06/2023 9:04 AM FIELD MARKETING ASSOCIATE - 10/06/2023 11:24 AM FIELD MARKETING ASSOCIATE Surgery [facility] MAIN OR [address] [place] [phone] Cameron Saenz M.D. [address] [place] [phone] ABDOMINAL EXPLORATION, REMOVAL ABTHERA, POSSBLE BOWEL RESECTION, PROCEED INDICATED 10/11/2023 7:00 AM FIELD MARKETING ASSOCIATE Appointment Department of Laboratory Medicine and Pathology, [facility], in [place], [place] [address] [place] [phone] Arti Epstein M.B.B.S. [address] [place] [phone] 10/11/2023 9:00 AM FIELD MARKETING ASSOCIATE Office Visit Division of Hematology in [place], [place] [address] [place] [phone] Arti Epstein M.B.B.S. [address] [place] [phone] 10/11/2023 10:00 AM FIELD MARKETING ASSOCIATE Infusion Department of Oncology in [place], [place] [address] [place] [phone] Bev Gifford APRN, C.N.P., M.S.N. [address] [place] [phone] 11/19/2023 10:00 AM CDT Office Visit Division of Endocrinology in [place], [place] [address] [place] [phone] West Mendoza APRN, C.N.P., M.S. [address] [place] [phone] 11/19/2023 2:30 PM CDT Comprehensive Visit Division of Hepatobiliary and Pancreas Surgery in [place], [place] [address] [place] [phone] Wesley Hamilton M.D. [address] [place] [phone] Scheduled Procedures Name Priority Associated Diagnoses Date/Ti me LAPAROTOMY - ABDOMINAL WASHOUT Ischemia Intestinal With Stricture (HCC) 10/06/2023 9:04 AM FIELD MARKETING ASSOCIATE documented as of this encounter Results * (ABNORMAL) Magnesium (08/12/2023 8:28 AM FIELD MARKETING ASSOCIATE) Magnesium, S 1.2(L) 1.7 - 2.3 mg/dL 08/12/2023 9:32 AM FIELD MARKETING ASSOCIATE DTL Blood (Blood, Venous) 08/12/2023 8:28 AM FIELD MARKETING ASSOCIATE 08/12/2023 9:08 AM FIELD MARKETING ASSOCIATE Roseann Burgos, B.Ch., B.A.O. LAB B LOOD ADD-ON [facility] [address] [place] [address], [facility] 200 [place] [address] documented in this encounter Visit Diagnoses Diagnosis Hypokalemia- Primary Ischemia Intestinal With Stricture (HCC) documented in this encounter Additional Health Concerns Infection Onset Date Last Indicated Resolved Time Protective Environment 05/17/2023 05/17/2023 documented as of this encounter Care Teams Preschool Head Teacher Relationship Specialty Start Date End Date Elsewhere, Pcp PCP - General Internal Medicine 05/11/23 09/13/23 documented as of this encounter
--- OUTSIDE RECORDS SUMMARY | 2023-10-05 12:58 | XMS_ITS | Encounter Summary ---
Author Name Unknown Organization [facility] Address [address] [place] [address] Care Team Providers Care Saturator Tender Name Role Phone Elsewhere, Pcp Primary Care Provider Unavailabl e Reason for Visit * Episode Based Medications (Routine) - Authorized Specialty Diagnoses / Procedures Referred By Contac t Referred To Contact Diagnoses Lymphoma Non Hodgkins (HCC) Procedures X Molly Jarquin M.B.BTami, Tani [address] [place] [phone] [facility] [address] [place] [phone] Referral ID Status Reason Start Date Expiration Date V isits Requested Visits Authorized [id number] Authorized 05/17/2023 05/16/2025 99 99 Encounter Details Date Type Department Care Team (Late st Contact Info) Description 08/12/2023 12:30 PM BOILER TUBE BLOWER Infusion Department of Oncology in [place], [place] [address] [place] [phone] Bety Castro M.D. [address] [place] [phone] Lymphoma Non Hodgkins (HCC) (Primary Dx) Social [...] Answer Date Recorded PHQ-2 Score 0 04/25/2020 [facility] - Occupational Stress Questionnaire [...] (Latest Contact Info) Description 10/06/2023 9:04 AM BOILER TUBE BLOWER - 10/06/2023 11:24 AM BOILER TUBE BLOWER Surgery [facility] MAIN OR [address] [place] [phone] Cameron Saenz M.D. [address] [place] [phone] ABDOMINAL EXPLORATION, REMOVAL ABTHERA, POSSBLE BOWEL RESECTION, PROCEED INDICATED 10/11/2023 7:00 AM BOILER TUBE BLOWER Appointment Department of Laboratory Medicine and Pathology, [facility] in [address] [phone] Arti Epstein M.B.B.S. [address] [place] [phone] 10/11/2023 9:00 AM BOILER TUBE BLOWER Office Visit Division of Hematology in [address] [phone] Arti Epstein M.B.B.S. [address] [place] [phone] 10/11/2023 10:00 AM BOILER TUBE BLOWER Infusion Department of Oncology in [address] [phone] Bev Gifford APRN, C.N.P., M.S.N. [address] [place] [phone] 11/19/2023 10:00 AM CDT Office Visit Division of Endocrinology in [place], [place] [address] [place] [phone] West Mendoza APRN, C.N.P., M.S. [address] [place] [phone] 11/19/2023 2:30 PM CDT Comprehensive Visit Division of Hepatobiliary and Pancreas Surgery in [place], [place] [address] [place] [phone] Wesley Hamilton M.D. 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 Given 08/12/2023 1:02 PM BOILER TUBE BLOWER 650 mg cycloPHOSphamide 1,180 mg in NaCl 0.9% 334 mL IVPB (CYTOXAN) 1,180 mg (rounded from 1,188 mg = 600 mg/m2 ? 1.98 m2 Treatment Plan BSA from Measured weight), intravenous, at 668 mL/hr, Administer over 30 Minutes, Once, On Sat08/12/23 at 1715, For 1 dose New Bag 08/12/2023 4:39 PM BOILER TUBE BLOWER 1,180 mg 668 mL/hr diphenhydrAMINE injection 25 mg (BENADRYL) 25 mg, intravenous, Once, On Sat08/12/23 at 1315, For 1 dose, Administer 30 minutes prior to riTUXimab. Given 08/12/2023 1:04 PM BOILER TUBE BLOWER 25 mg DOXOrubicin injection 80 mg (ADRIAMYCIN) 80 mg (rounded from 79.2 mg = 40 mg/m2 ? 1.98 m2 Treatment Plan BSA from Measured weight), intravenous, Administer over 10 Minutes, Once, On Sat08/12/23 at 1545, For 1 dose, Administer IV push through a free flowing IV of 0.9% NaCL over approximately 10 minutes via Y-site. Protect from light. Given 08/12/2023 3:58 PM BOILER TUBE BLOWER 80 mg heparin flush 500 Units 500 Units, intra-catheter, As needed, line care, Starting on Sat08/12/23 at 1250, When no infusion to maintain patency: For IVAD accessed, not in use, and/or prior to hospital discharge, flush every 7 days after 0.9% preservative-free NaCL flush. For IVAD NOT accessed or used, flush every 4 weeks after 0.9% preservative-free NaCL flush. Given 08/12/2023 5:12 PM BOILER TUBE BLOWER 500 Units palonosetron injection 0.25 mg (ALOXI) 0.25 mg, intravenous, Once, On Sat08/12/23 at 1315, For 1 dose Given 08/12/2023 1:13 PM BOILER TUBE BLOWER 0.25 mg polatuzumab vedotin-piiq 150 mg in NaCl 0.9% 117.5 mL IVPB (POLIVY) 150 mg (rounded from 145.62 mg = 1.8 mg/kg ? 80.9 kg Treatment plan Measured weight), intravenous, at 235 mL/hr, Administer over 30 Minutes, Once, On Sat08/12/23 at 1515, For 1 dose, Monitor patient for 30 minutes after infusion. May administer doxorubicin and cyclophosphamide during this time. Polatuzumab must be administered using a dedicated infusion line equipped with a sterile, non-pyrogenic, low-protein binding in-line or add-on filter (0.2- or 0.22-micron pore size) and catheter. Do not mix Polatuzumab with or administer as an infusion with other drugs. Chemotherapy agent has a short stability. Please notify pharmacy when patient is ready to receive drug. New Bag 08/12/2023 3:19 PM BOILER TUBE BLOWER 150 mg 235 mL/hr riTUXimab-pvvr 700 mg in NaCl 0.9% IVPB (RUXIENCE) 700 mg (rounded from 742.5 mg = 375 mg/m2 ? 1.98 m2 Treatment Plan BSA from Measured weight), intravenous, Once, On Sat08/12/23 at 1345, For 1 dose, Infuse over 90 minutes at 280 mL/hr for 30 minutes; then 560 mL/hr for 60 minutes. Or proceed with initial rate of 100 mg/hr and increase by 100 mg/hr every 30 minutes to a maximum of 400 mg/hr., Restriction Criteria (Pharmacy will review and approve if criteria met): Meets rituximab algorithm criteria Rate/Dose Change 08/12/2023 2:10 PM BOILER TUBE BLOWER 560 mL/hr New Bag 08/12/2023 1:37 PM BOILER TUBE BLOWER 700 mg sodium chloride 0.9 % injection 10 mL 10 mL, intra-catheter, As needed, line care, Starting on 08/12/23 at 1250, When IVAD Accessed and in Use: Flush prior to and following infusion, between multiple consecutive infusions, and prior to blood sampling. Given 08/12/2023 5:12 PM BOILER TUBE BLOWER 10 mL Given 08/12/2023 1:02 PM BOILER TUBE BLOWER 10 mL documented in this encounter Additional Health Concerns Infection Onset Date Last Indicated Resolved Time Protective Environment 05/17/2023 05/17/2023 documented as of this encounter Care Teams Saturator Tender Relationship Specialty Start Date End Date Elsewhere, Pcp PCP - General Internal Medicine 05/11/23 09/13/23 documented as of this encounter
--- OUTSIDE RECORDS SUMMARY | 2023-10-05 12:58 | XMS_ITS | Encounter Summary ---
Author Name Unknown Organization [facility] Address [address] [place] [id number] Care Team Providers Care Talend Developer Name Role Phone Elsewhere, Pcp Primary Care Provider Unavailabl e Reason for Referral * Outpatient (Routine) - Closed Specialty Diagnoses / Procedures Referred By Conttracy t Referred To Contact Diagnoses Lymphoma Non Hodgkins (HCC) Procedures EGD (EsophagealGastroDuodenoscopy ) Roseann Sheldon M.B., B.Ch., B.A.O. [address] [place] [phone] [facility] Referral ID Status Reason Start Date Expiration Date Visits Re quested Visits Authorized [id number] Closed 08/07/2023 08/06/2024 1 1 L Reason for Visit * Reason Comments Abnormal Lab Encounter Details Date Type Department Care Team (Latest Contact Info) Description 08/05/2023 12:12 PM MOHEL - 08/07/2023 3:50 PM MOHEL Hospital Encounter [facility], [facility], [facility], Third Floor [address] [place] [phone] Megan Frazier P.A.-C., M.S. [address] [place] [phone] Bharat Reyna P.A.-C. [address] [place] [phone] Ricardo Pickard M.D. 200 [place] [phone] Hypokalemia (Primary Dx); Thrombocytopenia (HCC); Anemia; History Of Falling; Lymphoma Non Hodgkins (HCC); Diabetes Mellitus Type 2 (HCC) Discharge Disposition: Home or Self Care Social History Tobacco Use Types Packs/Day Years Used Date Smoking Tobacco: Former Cigarettes 22 Q uit: 02/07/1989 Passive Smoke Exposure: [...] any clubs o r organizations such as zoroastrian groups, unions, fraternal or athletic groups, or [...] Answer Date Recorded PHQ-2 Score 0 04/25/2020 [facility] - Occupational [...] Sign Reading Time Taken Comments Blood Pressure 116/70 08/07/2023 3:35 PM MOHEL Pulse 73 08/07/2023 3:35 PM MOHEL Temperature 37.1 ??C (98.8 ??F) 08/07/2023 3:36 PM CS T Respiratory Rate 17 08/07/2023 3:35 PM MOHEL Oxygen Saturation 95% 08/07/2023 3:35 PM MOHEL Inhaled Oxygen Concentration - - Weight 83 kg (182 lb 15.7 oz) 08/07/2023 2:43 PM MOHEL Height 175.3 cm (5' 9) 08/05/2023 5:29 PM MOHEL Body Mass Index 27.02 08/05/2023 5:29 PM MOHEL documented in this encounter Discharge Summaries * Roseann Sheldon M.B., B.Ch., B.A.O. - 08/07/2023 2:30 PM CST DISCHARGE SUMMARY BRIEF OVERVIEW Hospital: [facility] Discharge Provider: Ricardo Pickard M.D. Primary Team: RST Medicine 14 ([facility]) Primary Care Providers: Elsewhere, Pcp (General) No address on file Primary Care Provider Phone Number: None Primary Care Provider Fax Number: None Other Providers: None Admission Date: 08/05/2023 Discharge Date:08/07/2023 PRINCIPAL DIAGNOSIS Anemia secondary to Bone marrow supression from Chemotherapy SECONDARY DIAGNOSES Principal Problem: Anemia Active Problems: History Of Falling Hypokalemia Thrombocytopenia (HCC) Resolved Problems: * No resolved hospital problems. * DISCHARGE DISPOSITION Home or Self Care [1] ACTIVE ISSUES REQUIRING FOLLOW UP DISCHARGE RECOMMENDATIONS EGD tommorow on 08/08 to reassess duodenal mass to check response to chemotherapy and to also look for a slow GI bleed PET scan scheduled for August 09 to assess tumor progression/chemotherapy response Home potassium supplements increased given his hypokalemia Magnesium Supplements added for his Low Mg Labs including BMP and CBC to reassess anemia and also electrolytes and further adjust his supplements. OUTPATIENT FOLLOW UP Scheduled Appointments 08/08/2023 2:15 PM RM EGD [facility] 09 [facility] Gastroenterology and Hepatology 08/09/2023 11:45 AM NM [place] [id number] Radiology 08/12/2023 7:40 AM LAB BLOOD [facility] 10 E Laboratory Medicine 08/12/2023 9:30 AM HEM [facility] 01 [facility] Hematology 08/12/2023 12:30 PM ONC CHAIR CHEMO 49 [facility] Oncology 09/04/2023 10:40 AM JILLIAN DIRECTOR OF CONSUMER AFFAIRS ANDRÉS VALERIO Infusion Therapy 09/04/2023 1:00 PM Bev Gifford APRN, C.N.P., M.S.N. Hematology 09/05/2023 12:30 PM ONC CHAIR CHEMO 14 [facility] Oncology For appointment details refer to your Patient Appointment Guide. TEST RESULTS PENDING AT DISCHARGE Pending Labs Order Current Status Bacteria / Nancy Culture, Blood # 2 Preliminary result Bacteria / Nancy Culture, Blood #1 Preliminary result DETAILS OF HOSPITAL STAY REASON FOR ADMISSION Hypokalemia Anemia Thrombocytopenia (HCC) History Of Falling HOSPITAL COURSE Hola Lau is a 72 y.o. 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 The labs were done in the outpatient settings and then the patient was recommended to present to the ED. On presentation to the emergency department he was hemodynamically stable and did not endorse any bleeding. There was no melena or hematemesis. He received transfusions with 2 units of red blood cells. His potassium was also repleted. The patient was monitored in hospital for two days and his hemoglobin remained stable. In conclusion his anemia was most likely in the setting of own marrow suppression from chemotherapy. His hemoglobin stabilized over the course of the admission to 8 He also had thrombocytopenia with a drop from 200 which is his baseline to line T. This improved over the course of the admission 139. The patient also had hypokalemia and hypomagnesemia during this admission. We have repleted those electrolytes and increased the dose of his home pottassium supplements and also added magnesium replacement. In regards to etiology it is multifactorial. He usually gets Diarrhea after his chemotherapywhich depleted his electrolytes.There may also be component of due to kidney wasting of K associated with the cyclophosphamide and Polatuzumab. We reached out to his oncologist Dr Cordero who recommended that we consider an EGD to look for a slow GI bleed from his duodenal mass and to also assess treatment response. We decided to do this inthe outpatient setting and we scheduled him for an EGD after discharge on 08/08. He also has a PET scan scheduled in the outpatient setting on August 09 to assess response to chemotherapy. In terms of his chemotherapy he will follow-up with his oncologist on SaturdayAugust 12 with repeat labs and then further discussions regarding his chemotherapy treatments. DISCHARGE RECOMMENDATIONS EGD tommorow on 08/08 to reassess duodenal mass to check response to chemotherapy and to also look for a slow GI bleed PET scan scheduled for August 09 to assess tumor progression/chemotherapy response Home potassium supplements increased given his hypokalemia Magnesium Supplements added for his Low Mg Labs including BMP and CBC to reassess anemia and also electrolytes and further adjust his supplements. CONSULTS ORDERED DURING THIS ADMISSION IP CONSULT TO CARE MANAGEMENT IP CONSULT TO MEDICAL SCHEDULER WOUND CARE L documented in this encounter Discharge Instructions * Discharge Instructions* Renata Armenta - 08/06/2023 7:27 AM MOHEL You were discharged from the [facility] Medicine 14 ([facility]) Service. Please identify this service name if you call with questions after hospitalization. L * Attachments The following attachments cannot be sent through Care Everywhere. * Mineral Supplement Combination (By mouth) (Algerian) * Potassium Chloride (By mouth) (Algerian) * About Your Upper Endoscopy (Algerian) * Magnesium (By mouth) (Algerian) documented in this encounter Medications at Time [...] 07/23/2023 09/04/2023 documented as of this encounter Progress Notes * Ricardo Pickard M.D. - 08/07/2023 3:06 PM CST [facility] Medicine 14 ([facility]) Supervisory Progress Note I saw and evaluated Mr. Hola Lau on Medicine rounds today and agree with the findings and plan as documented in today's documentation by my resident physician colleague with the following comments: # severe anemia, predominantly hypoproliferative from chemotherapy # thrombocytopenia secondary to chemotherapy # diffuse large B-cell lymphoma with primary duodenal lesion # severe hypokalemia, likely secondary to diarrhea with possibility of nephrotoxic effect from chemotherapy # hypomagnesemia # diabetes mellitus type 2 # CONNIE on CPAP His hemoglobin is stable today and he continues to deny any melena. He has been up walking to the bathroom and does not have any lightheadedness. Electrolytes are improved with replacement. He is medically stable for dismissal and we were unable to get EGD scheduled this week in-hospital.We will plan to do it as an outpatient early next week. Please refer to my resident physician colleague's documentation dated today for additional details about our team's plan of care. L * Sample, Yulisa Rivera R.N., C.W.C.N. - 08/07/2023 9:38 AM CST [facility] Wound RN consulted to assess Hola Lau skin alterations. Wound assessment, pain, and Niels score noted in the flowsheet. No images were taken during this patient assessment. History: The patient is a 72-year-old man who is undergoing active chemotherapy for stage IV diffuse large B-cell lymphoma and presents with severe anemia and hypokalemia. Assessment: The patient states about a week ago his toenail caught and was ripped off. There is no nail in place the nail bed is red and more to the tip is brown soft scab like tissue. The tip of thetoe around the wound is red. He denies pain stating he has some neuropathy. If the toe continues toget more red notify service. 08/07/23 0830 Wound 08/07/23 Traumatic Toe 2nd Anterior;Left Date First Assessed/Time First Assessed: 08/07/23 0800 Present on Original Admission: Yes Primary Wound Type: Traumatic Location: Toe 2nd Wound Location Orientation: Anterior;Left *Wound Bed Open;Brown;Red *Exudate Amount None Renetta-wound Assessment Intact;Red Wound Cleansed with Wound cleanser (vashe) *Primary Dressing Cadexomer iodine (Iodosorb) *Primary Dressing Frequency of Change Daily & PRN Primary Dressing Changed New *Secondary Dressing Foam *Secondary Dressing Frequency of Change Daily & PRN Secondary Dressing Changed Changed Secondary Dressing Status Clean;Dry;Intact Changed by Wound clinical documentation spec Focused assessment completed DRESSING RECOMMENDATIONS: #1 Traumatic Toe 2nd Anterior;Left -Cleanse the area with Vashe wound cleanser and 4x4 gauze. Pat dry. -Apply Iodosorb to the wound bed daily. -DO NOT apply to intact skin. There may be some staining of the skin from Iodosorb. -Cover with a a 1x2 Mepilex border. Change once daily and PRN. Recommended interventions for pressure redistribution and shear reduction: Offload heels on pillows at all times when in bed. Full 30 degree turns side to side every 2 hours with supine positioning only for meals. Keep the HOB below 30 degrees except for meals unless medically contraindicated. Apply a prophylactic Mepilex?? Border Sacrum dressing to cover the coccyx/sacral area. Lift twice daily to assess the skin when used prophylactically. Lift once daily to assess when used for wound care. Apply prophylactic Mepilex?? heel borders. Lift twice daily to assess the skin when used prophylactically. Lift once daily to assess when used for wound care. Recommended interventions for moisture control: Utilize the [...] reconsult for worsening wounds or new wounds. L * Joel Bales R.R.T., L.R.T. - 08/06/2023 10:13 PM CST Patient refused CPAP tonight, saying that it is too different and uncomfortable compared to his home machine. RT is available if patient changes their mind. Electronically signed by: Roderick Bales R.R.T., Celeste 08/06/23 10:13 PM MOHEL L * Roseann Sheldon M.B., B.Ch., B.A.O. - 08/06/2023 2:38 PM CST [facility] Medicine 14 ([facility]) PROGRESS NOTE SUBJECTIVE Mr. Lau is doing well this morning he is not complaining of any symptoms. He is not complainingof any bleeding no melena no hematemesis OBJECTIVE Vital signs Temperature: [36.6 ??C-37 ??C] 36.7 ??C Heart Rate: [63-86] 70 Resp Rate: [17-22] 18 Blood Pressure: (98-118)/(49-64) 108/64 SpO2: [89 %-100 %] 100 % Flow Rate (L/min): [2 L/min] 2 L/min Height: [175.3 cm] 175.3 cm Weight: [82.2 kg-83 kg] 83 kg BSA (Calculated - sq m): [2 sq meters] 2 sq meters BMI (Calculated): [26.7 kg/m??-27 kg/m??] 27 kg/m?? Pulse Rate: [71-87] 79 Physical exam: General: well-appearing male resting comfortably in bed, in no acute distress CV: Heart sounds 1 and 2 normal, no murmurs, JVP not elevated Pulm: respirations non-labored, symmetric chest rise Abdomen: non-distended, nontender Rectal: no evidence of blood on BRUCE MSK: moves limbs spontaneously, no joint tenderness or effusions Derm: no rashes, abrasions, scleral icterus, jaundice, or skin discoloration Diagnostics: I have reviewed the labs and diagnostics since admission. ASSESSMENT / PLAN Hola Lau is a 72-year-old male admitted with Chemotherapy associated Anemia and Hypokalemia associated with diarrhea and most likely cyclophoshomide. He has a background of stage IV diffuse large B-cell lymphoma currently on cycle 4 Preston-R-CHP, prior thyroid cancer s/p thyroidectomy on replacement, rheumatoid arthritis, and T2DM. # Anemia, likely consequent from chemotherapy # Thrombocytopenia, likely consequent from chemotherapy # Hypokalemia, likely multifactorial with contributions from chemotherapy and diarrhea # Stage IV diffuse large B cell lymphoma on Preston-R-CHP cycle 4 (last dose 07/23) Anemia Workup -reticulocyte count inappropriately normal indicating bone marrow spread -ferritin elevated, Iron is low with High TIBC indicating Anemia of chronic disease, he also received iron dextran on April 2020 - peripheral smear- No shictocytes, no platelet clumping -LDH normal at 188 - Trend hemoglobin and transfuse for value < 7.0 - Trend potassium and plan for 40-80 mEq daily potassium depending on response # Hypoxemia - Low oxygen saturations requiring up to 2 L nasal cannula likely multifactorial with contributionsfrom anemia and intermittent obstruction due to positioning in bed in the context of known CONNIE - Will encourage IS, address anemia with transfusion and continue nightly CPAP as below # Thyroid cancer s/p thyroidectomy on replacement - continue home levothyroxine # Psoriasis, currently clinically quiescent - continue to hold ixekizumab while on active chemotherapy for DLBCL # Diabetes mellitus type 2 # Elevated ASCVD risk - continue home statin, hold metformin/empagliflozin/liraglutide for now, SSI for now - consider discussion with PCP regarding ongoing aspirin therapy for primary prevention (held for now) # Gout - continue home allopurinol # CONNIE - continue home CPAP # Chronic neuropathic pain - patient notes that he takes amitriptyline only on an as-needed basis; held for now Diet: general diet Tubes/lines: PIV VTE prophylaxis: enoxaparin Code status: Full Code Surrogate Decision Maker: PartnerAltagracia Disposition: Home, likely within 24-48h L * Safia Pulido, Pharm.D., R.Ph. - 08/06/2023 8:18 AM CST Images from the original note were not included. Admission Medication History Note Adherence issues: No concerns Medication list source: Patient, Care Everywhere or chart review, and Pharmacy or dispense records Medication related information: Changed route to oral/no SBT route needed Prior to Admission Medications Med List Status: Pharmacy/RN Complete Set By: Safia Pulido, Pharm.D., R.Ph. at 08/06/2023 2:03 PM Status Comment 08/06/2023 2:03 PM RN reviewed with patient, PharmD confirmed with dispense list-adjusted medication route to oral (not SBT) Taking? Last Dose Informant Start Date End Date LT acetaminophen (TYLENOL) 500 mg tablet -- -- 05/07/23 -- Administer 1 tablet (500 mg total) via small bowel tube every 6 (six) hours as needed for mild painor score 1-3 of 10 or moderate pain or score 4-6 of 10. Patient taking differently: Take 500 mg by mouth every 6 (six) hours as needed for mild pain or score 1-3 of 10 or moderate pain or score 4-6 of 10. allopurinoL (ZYLOPRIM) 300 mg tablet -- -- 05/24/23 08/06/23 Take 1 tablet (300 mg total) by mouth daily. amitriptyline (ELAVIL) 25 mg tablet -- -- 05/07/23 08/06/23 Administer 0.5 tablets (12.5 mg total) via small bowel tube at bedtime as needed (neuropathy). Patient taking differently: Take 12.5 mg by mouth at bedtime as needed (neuropathy). aspirin 81 mg chewable tablet -- -- 05/07/23 -- Administer 1 tablet (81 mg total) via small bowel tube daily. Patient taking differently: Chew 81 mg daily. DME CPAP -- -- -- -- DME Order empagliflozin (Jardiance) 10 mg tablet -- -- 05/07/23 05/06/24 Administer 1 tablet (10 mg total) via small bowel tube every morning before breakfast. Patient taking differently: Take 10 mg by mouth every morning before breakfast. ixekizumab (TALTZ) 80 mg/mL syringe injection -- -- 07/24/17 -- Inject 80 mg under the skin every 28 (twenty-eight) days. One injection per month Does not use during chemotherapy Notes: Pt reports he is holding this while on chemo levothyroxine (SYNTHROID, LEVOTHROID) 112 mcg tablet -- -- 05/07/23 -- Administer 1 tablet (112 mcg total) via small bowel tube every morning before breakfast. TAKE 2 TABLETS(224 MCG) BY MOUTH DAILY. EXCEPT ON SUNDAYS, TUESDAYS, AND THURSDAYS TAKE ONLY 1 TABLET 112 MCG.HYPOTHYROIDISM Patient taking differently: Take 112 mcg by mouth every morning before breakfast. TAKE 2 TABLETS(224 MCG) BY MOUTH DAILY. EXCEPT ON SUNDAYS, TUESDAYS, AND THURSDAYS TAKE ONLY 1 TABLET 112 MCG. HYPOTHYROIDISM liraglutide, weight loss, (SAXENDA) 3 mg/0.5 mL (18 mg/3 mL) injection -- -- 07/30/22 -- Inject 1.2 mg under the skin daily. Not taking during chemo Notes: Pt reports he is holding this while on chemo melatonin 1 mg/mL liquid -- -- 05/07/23 -- Administer 5 mL (5 mg total) via small bowel tube at bedtime as needed for sleep. Patient taking differently: Take 5 mg by mouth at bedtime as needed for sleep. metFORMIN (GLUCOPHAGE) 1,000 mg tablet -- -- 05/07/23 06/10/24 Administer 1 tablet (1,000 mg total) via small bowel tube daily with dinner. Patient taking differently: Take 1,000 mg by mouth daily with dinner. ondansetron ODT (ZOFRAN-ODT) 8 mg disintegrating tablet -- -- 05/07/23 -- Dissolve 1 tablet (8 mg total) in the mouth every 8 (eight) hours as needed for nausea or vomiting. pen needle, diabetic (UltiCare Pen Needle) 31 gauge x 5/16 needle -- -- 07/18/22 -- 1 Injection by abdominal subcutaneous route daily. Notes: Place on file predniSONE (DELTASONE) 50 mg tablet Past Month -- 06/10/23 -- Take 2 tablets (100 mg total) by mouth daily. Days 1 through 5 of each cycle. (Prior to chemotherapy if a chemo day) predniSONE (DELTASONE) 50 mg tablet Past Month -- 07/23/23 -- Take 2 tablets (100 mg total) by mouth daily. Days 1 through 5 of each cycle. (Prior to chemotherapy if a chemo day) vit27,calcium/iron/FA (multivitamin/mineral-) tablet -- -- 05/07/23 -- Administer 1 tablet via small bowel tube daily. Patient taking differently: Take 1 tablet by mouth daily. simvastatin (ZOCOR) 20 mg tablet -- -- 05/07/23 -- Administer 1 tablet (20 mg total) via small bowel tube at bedtime. Patient taking differently: Take 20 mg by mouth at bedtime. Pharmacist Progress Note Reason for admission: Anemia PMH: stage IV diffuse large B-cell lymphoma currently on cycle 4 Preston-R-CHP, prior thyroid cancer s/p thyroidectomy on replacement, rheumatoid arthritis, gout, CONNIE, insomnia, psoriasis and T2DM OBJECTIVE Home medications: Held: amitriptyline PRN, empagliflozin, metformin, prednisone (days 1-5 chemo cycle) Change: KCL (increase), liraglutide & ixekizumab (holding while on chemo) Discontinue: ASA P&T interchange: statin Next chemo 08/12/2374-Irvm-P-CHP-polatuzumab vedotin-piiq (Polivy) plus rituximab (Rituxan), cyclophosphamide, doxorubicin, and prednisone DVT Prophylaxis: enoxaparin Estimated Creatinine Clearance: 94.2 mL/min (by C-G formula based on SCr of 0.8 mg/dL). ASSESSMENT / PLAN Anemia: Hgb 6.7 on admission-s/p transfusions, Hgb 7.9 this AM, follow-up on ferritin/iron studies,peripheral smear, LDH; Polatuzumab vedotin-piiq (all grades 28%-68% ADR for anemia) Hypokalemia: has had diarrhea with chemo-take Kcl 20meq/day TRAVEL COTA>>40meq day now T2DM: correctional insulin aspart-moderate scale, A1c 6.0 (01/2023), BS <180 Safia Pulido PharmJohannaDJohanna, R.Ph. [phone] L documented in this encounter H&P Notes * Ricardo Pickard M.D. - 08/06/2023 5:12 PM CST [facility] Medicine 14 ([facility]) Admission Supervisory Note I saw and evaluated Mr. Hola Lau on admission today, and I agree with the findings and plan as documented in the admission note by Dr. Lenny Peters with the following comments: The patient is a 72-year-old man who is undergoing active chemotherapy for stage IV diffuse large B-cell lymphoma and presents with severe anemia and hypokalemia. He does have a known duodenal lesion from the lymphoma but has not had any melena. His initial hemoglobin was 6.7 and improved to 8.0 after the 1 unit transfusion last night. He does get about a week of diarrhea related to his chemotherapy and that had resolved prior to this admission but likely accounts for some of the hypokalemia. On examination he is alert and pleasant and fully oriented. Mild conjunctival rim pallor. Reticulocyte count is inappropriately low. # severe anemia, predominantly hypoproliferative from chemotherapy # thrombocytopenia secondary to chemotherapy # diffuse large B-cell lymphoma with primary duodenal lesion # severe hypokalemia, likely secondary to diarrhea with possibility of nephrotoxic effect from chemotherapy # hypomagnesemia # diabetes mellitus type 2 # CONNIE on CPAP We are replacing his magnesium and potassium and will augment his home potassium replacement and also add oral magnesium, as his diarrhea has currently resolved. His anemia is predominantly hypoproliferative but in view of his duodenal lesion which has a history of bleeding, we will check an EGD. He received 1 g of IV iron dextran in April and iron studies currently indicate adequate repletion. Please refer to the aforementioned note for additional details about our team's plan of care. I personally spent over half of a total 55 minutes in counseling and discussion with the patient and coordination of care as described above. L * Lenny Peters M.D. - 08/05/2023 4:29 PM CST [facility] Medicine 14 ([facility]) Admission Note SUBJECTIVE Chief complaint Anemia HISTORY OF PRESENT ILLNESS Hola Lau is a 72 y.o. male with stage IV diffuse large B-cell lymphoma currently on cycle 4 Preston-R-CHP, prior thyroid cancer s/p thyroidectomy on replacement, rheumatoid arthritis, and T2DM who is admitted in the context of anemia and electrolyte derangements discovered on routine therapeutic drug monitoring. The patient has completed 3 cycles of Preston-R-CHP with plans for cycle 4 on 08/12/2023. The patient said that he was in his usual state of health when he presented for routine therapeutic drug monitoring this morning. He was called and notified that his hemoglobin levels were low, and he was advised to seek evaluation in his local ED. He felt more comfortable coming to [place] for further evaluation since most of his cancer-related cares have occurred here. In the emergency department, he was hemodynamically well. He reports to me that he has felt overallwell since his last cycle of chemotherapy. He states that he has the usual side effects that he hascome to expect from his chemotherapy, including increased fatigue, and diarrhea which slowly resolves (already improving as of yesterday). He does note that he recently suffered a ground level fall at home which he attributes to tripping over a rug on the carpet. He does have chronic foot drop. During the fall, he essentially says that he tripped over a rug and fell, breaking his fall with his hands and knees bilaterally. He scraped his knees little bit on the rug and this has been healing well over the last couple of days. He absolutely denies hitting his head, losing consciousness, or suffering any other injuries. Otherwise, he really has been well. He states that he would not have even known that he had low hemoglobin were it not for having the therapeutic drug monitoring labs. He has had no blood in the stools or melena, which he is very familiar with from his prior duodenal bleeding episodes. He has been eating and drinking normally. He notes that his potassium has been previously low, and he was recently prescribed a potassium replacement tablet, which he has been taking at a dose of 20 mg daily. Social History: Tobacco: former, [id number], quit 30 years ago Alcohol: none current Illicits: none Living situation: lives at home with life partner Rhona Allergies: Gabapentin (rash) Home Medications: Current Outpatient Medications on File Prior to Encounter: acetaminophen (TYLENOL) 500 mg tablet, Administer 1 tablet (500 mg total) via small bowel tube every 6 (six) hours as needed for mild pain or score 1-3 of 10 or moderate pain or score 4-6 of 10. allopurinoL (ZYLOPRIM) 300 mg tablet, Take 1 tablet (300 mg total) by mouth daily. amitriptyline (ELAVIL) 25 mg tablet, Administer 0.5 tablets (12.5 mg total) via small bowel tube atbedtime as needed (neuropathy). aspirin 81 mg chewable tablet, Administer 1 tablet (81 mg total) via small bowel tube daily. DME CPAP, DME Order empagliflozin (Jardiance) 10 mg tablet, Administer 1 tablet (10 mg total) via small bowel tube every morning before breakfast. ixekizumab (TALTZ) 80 mg/mL syringe injection, Inject 80 mg under the skin every 28 (twenty-eight) days. One injection per month Does not use during chemotherapy levothyroxine (SYNTHROID, LEVOTHROID) 112 mcg tablet, Administer 1 tablet (112 mcg total) via smallbowel tube every morning before breakfast. TAKE 2 TABLETS(224 MCG) BY MOUTH DAILY. EXCEPT ON SUNDAYS, TUESDAYS, AND THURSDAYS TAKE ONLY 1 TABLET 112 MCG. HYPOTHYROIDISM liraglutide, weight loss, (SAXENDA) 3 mg/0.5 mL (18 mg/3 mL) injection, Inject 1.2 mg under the skin daily. Not taking during chemo melatonin 1 mg/mL liquid, Administer 5 mL (5 mg total) via small bowel tube at bedtime as needed for sleep. metFORMIN (GLUCOPHAGE) 1,000 mg tablet, Administer 1 tablet (1,000 mg total) via small bowel tube daily with dinner. ondansetron ODT (ZOFRAN-ODT) 8 mg disintegrating tablet, Dissolve 1 tablet (8 mg total) in the mouth every 8 (eight) hours as needed for nausea or vomiting. pen needle, diabetic (UltiCare Pen Needle) 31 gauge x 5/16 needle, 1 Injection by abdominal subcutaneous route daily. (Patient not taking: Reported on 07/19/2023) predniSONE (DELTASONE) 50 mg tablet, Take 2 tablets (100 mg total) by mouth daily. Days 1 through 5of each cycle. (Prior to chemotherapy if a chemo day) predniSONE (DELTASONE) 50 mg tablet, Take 2 tablets (100 mg total) by mouth daily. Days 1 through 5of each cycle. (Prior to chemotherapy if a chemo day) vit27,calcium/iron/FA (multivitamin/mineral-) tablet, Administer 1 tablet via small bowel tube daily. simvastatin (ZOCOR) 20 mg tablet, Administer 1 tablet (20 mg total) via small bowel tube at bedtime. [DISCONTINUED] pantoprazole (PROTONIX) 20 mg EC tablet, Take 1 tablet (20 mg total) by mouth every morning before breakfast. Review of systems Pertinent items mentioned in the HPI, all other systems are reviewed and negative OBJECTIVE Vital signs Temperature: [36.5 ??C-37 ??C] 36.6 ??C Heart Rate: [63-86] 77 Resp Rate: [11-26] 18 Blood Pressure: (89-118)/(44-65) 103/61 SpO2: [89 %-100 %] 100 % Flow Rate (L/min): [2 L/min] 2 L/min Height: [175.3 cm] 175.3 cm Weight: [81.4 kg-82.2 kg] 82.2 kg BSA (Calculated - sq m): [2 sq meters] 2 sq meters BMI (Calculated): [26.7 kg/m??] 26.7 kg/m?? Pulse Rate: [59-87] 74 Physical exam: General: well-appearing male resting comfortably in bed, in no acute distress ENT: trachea midline, no neck masses CV: well-perfused, normal rate Pulm: respirations non-labored, symmetric chest rise Abdomen: non-distended, nontender Rectal: no evidence of blood on BRUCE MSK: moves limbs spontaneously, no joint tenderness or effusions Derm: no rashes, abrasions, scleral icterus, jaundice, or skin discoloration Psych: alert and oriented 3/3, speech is normal in structure, volume, rate, and amount Diagnostics: I have reviewed the labs and diagnostics since admission. ASSESSMENT / PLAN Hola Lau is a 72-year-old male with stage IV diffuse large B-cell lymphoma currently on cycle4 Preston-R-CHP, prior thyroid cancer s/p thyroidectomy on replacement, rheumatoid arthritis, and V6CExef is admitted in the context of anemia and hypokalemia discovered on routine therapeutic drug monitoring. He is clinically well and without any evidence of gastrointestinal bleeding on history or physical examination. His treatment regimen is known to cause pancytopenia. Neutropenia was mitigated using pegfilgrastim with his most treatment recent cycle, and what remains is treatment-related anemia and t hrombocytopenia. His hypokalemia is likely also treatment related, with contributions from cyclophosphamide-associated potassium-wasting nephropathy and treatment-related diarrhea which has thankfully been resolving over the past few days. He has received one unit of pRBCs and 100 mEq potassium in the emergency department. We will assesstreatment response via CBC and BMP this evening. We will plan for 40 mEq daily potassium replacement starting tomorrow (given hypokalemia on current 20 mEq PO daily dose). We will also obtain a basic hematologic evaluation for anemia to ensure that hypoproliferation is the predominant cause as anticipated. # Anemia, likely consequent from chemotherapy # Thrombocytopenia, likely consequent from chemotherapy # Hypokalemia, likely multifactorial with contributions from chemotherapy and diarrhea # Stage IV diffuse large B cell lymphoma on Preston-R-CHP cycle 4 (last dose 07/23) - Will evaluate anemia with reticulocyte count, ferritin/iron studies, peripheral smear, LDH - Trend hemoglobin and transfuse for value < 7.0 - Trend potassium and plan for 40-80 mEq daily potassium depending on response # Hypoxemia - Low oxygen saturations requiring up to 2 L nasal cannula likely multifactorial with contributionsfrom anemia and intermittent obstruction due to positioning in bed in the context of known CONNIE - Will encourage IS, address anemia with transfusion and continue nightly CPAP as below # Thyroid cancer s/p thyroidectomy on replacement - continue home levothyroxine # Psoriasis, currently clinically quiescent - continue to hold ixekizumab while on active chemotherapy for DLBCL # Diabetes mellitus type 2 # Elevated ASCVD risk - continue home statin, hold metformin/empagliflozin/liraglutide for now, SSI for now - consider discussion with PCP regarding ongoing aspirin therapy for primary prevention (held for now) # Gout - continue home allopurinol # CONNIE - continue home CPAP # Chronic neuropathic pain - patient notes that he takes amitriptyline only on an as-needed basis; held for now Diet: general diet Tubes/lines: PIV VTE prophylaxis: enoxaparin Code status: Full Code Surrogate Decision Maker: PartnerAltagracia Disposition: Home, likely within 24-48h Lenny Peters M.D. Internal Medicine, PGY-3 L documented in this encounter Consult Notes * Kayla Israel R.N. - 08/06/2023 1:57 PM CSTAssociated Order(s): IP CONSULT TO CARE MANAGEMENT Discharge Planning Assessment SUBJECTIVE Assessment Information Referral Source: Early Screen for Discharge Planning Referral Name: Joby Viera R.N. Previous assessment done on: 04/30/23 Previous assessment done by: Ryann Mackey Primary Language: Algerian Books Binder Services Used: No Person(s) present during interview: Person(s) Present During Interview: patient History of Present Illness #1 History Of Falling #2 Hypokalemia #3 Anemia #4 Thrombocytopenia (HCC) Social History Marital Status: single Family / Household: patient lives with his significant other Rhona Support System: significant other Patient's Home Environment: ranch house Finance/Insurance Primary insurance: MEDICARE A AND B Secondary insurance: [employer] Does the patient have any financial concerns? no benefits: No Advance Directives Legal Decision Maker: Self Advance Directives: Living will, Power of Horticulture Worker for health care OBJECTIVE Baseline Functional Status Baseline Activities of Daily Living Mobility: Modified independent, Requires aide of device Dressing: Independent Feeding: Independent Bathing: Independent Grooming: Independent Toileting: Independent Behavior: Appropriate, Pleasant, Calm, Cooperative, Oriented Communication: Talks, Understands speaking, Understands Algerian Shopping: Needs assistance Transportation: Support from family Medication Management: Independent Housekeeping: Needs assistance Meal Prep: Needs assistance Managing Finances: Independent Assistive Devices: BiPAP/CPAP/VPAP, Cane, Walker - four wheeled, Tub/shower chair/bench, Eyeglasses, Medication box, Cellphone, Grab bars - wall, Grab bars - toilet Services/Resources: Lawn care (SAMANTHA) Baseline Services/Resources Primary care clinic and provider: Callie Blue MD (Int Med) Services/Resources: Lawn care (SAMANTHA) Additional Resources: NA Anticipated Needs Functional Status: Housekeeping, Shopping, Meal preparation Assistive Devices: None Anticipated Modifications to the Patient's Home: None Transportation Needs: Support from family Does the patient need discharge transport arranged?: No Phone Number for Ride/Caregiver: Rhona Cruz [phone] Anticipated Discharge Destination: Home or Self Care ASSESSMENT / PLAN Assessment: The inside account executive met with Hola Lau to discuss his current hospitalization and home going needs. The patient was unaccompanied. The patient was a reliable historian. The role of inside account executive was reviewed. The patient reviewed his prior level of care and support system. The patient receives support from his significant other. The patient described his living environment as a single level home with level entry. His laundry is located on the main level. He has a walk-in shower with a shower bench and grab bars in his bathroom. Housekeeping, grocery shopping, meal prep, and other household responsibilities have previously been completed by patient and patient's significant other. inside account executive discussed the patient's potential needs at dismissal based on their home setting, previous needs and responsibilities, homebound status, and relevant assessments with the patient. The patient will be safe and supported to return home with spouse/S.O. when medically ready. Support will be provided by Rhona. The patient demonstrated understanding when discussing his home going plans and anticipated needs. Recently, Denzel has been ambulating at home with a walker. Rhona assists with the shopping, cooking,housekeeping, and transportation tasks. At this time, the care team has not identified any skilled post-hospital discharge care needs that require the assistance of the Care Management Team. After reviewing the patient's chart and meeting with the patient, the inside account executive deemed the LACE+/readmission questions were not necessary. The patient reports understanding that he will dismiss from the hospital TOMORROW 08/07/23 . Pending hospital course and medical readiness, no barriers to dismissal have been identified at this time. Plan: The patient agrees with the following plan. Patient's anticipated discharge disposition is: Home to Self Care Transportation upon dismissal will be provided by family--Rhona . inside account executive recommended reaching out to family, friends, and neighbors for assistance. inside account executive provided information regarding the dismissal process. inside account executive placed or requested the following hospital-based consult orders and/or referrals: None. inside account executive will continue to assess for homegoing needs with the interdisciplinary team. inside account executive encouraged the patient to reach out with any questions/concerns. Signed by: Kayla Israel R.N. 08/06/2023 L documented in this encounter Nursing Notes * Samantha Vargas R.N. - 08/07/2023 3:47 PM CST Problem: SAFETY ADULT Goal: Maintain a safe environment Outcome: Adequate for Discharge Problem: SAFETY ADULT - RISK FOR FALL AND OR FALL INJURY Goal: Patient remains free from fall/fall injury Outcome: Adequate for Discharge Problem: PAIN - ADULT Goal: PT VERBALIZES/DEMONSTRATES ADEQUATE COMFORT LEVEL OR BASELINE Outcome: Adequate for Discharge Problem: KNOWLEDGE DEFICIT Goal: Patient/family/caregiver demonstrates understanding of disease process, treatment plan, medications, and discharge instructions Outcome: Adequate for Discharge Problem: INFECTION - ADULT Goal: Absence of infection during hospitalization Outcome: Adequate for Discharge Problem: SKIN/TISSUE INTEGRITY Goal: Skin/Tissue integrity maintained or improved Outcome: Adequate for Discharge Goal: Oral and Nasal mucous membranes remain intact Outcome: Adequate for Discharge Problem: DISCHARGE PLANNING Goal: Patient discharge needs identified Outcome: Adequate for Discharge Problem: POTENTIAL OR ACTUAL PRESSURE INJURY-ADULT Goal: Manage sensory Perception deficits to maintain and/or improve skin integrity Outcome: Adequate for Discharge Goal: Maintain optimal skin moisture to ensure or improve skin integrity Outcome: Adequate for Discharge Goal: Achieve optimal activity and/or mobility to maintain or improve skin integrity Outcome: Adequate for Discharge Goal: Nutrient intake appropriate for improving, restoring or maintaining skin integrity Outcome: Adequate for Discharge Goal: Minimize friction and/or shear to maintain or improve skin integrity Outcome: Adequate for Discharge Problem: Compromised Skin Integrity Goal: Skin/Tissue integrity maintained or improved Outcome: Adequate for Discharge Goal: Oral and Nasal mucous membranes remain intact Outcome: Adequate for Discharge Goal: Incisions, wounds, or drain sites healing without S/S of infection Outcome: Adequate for Discharge Problem: Incontinence and/or Moisture Goal: Skin integrity is maintained or improved Outcome: Adequate for Discharge Shift Goals: Clinical Goals for the Shift: Pt. will discharge to [facility]. Identify possible barriers to meeting goals/advancing plan of care: no barriers End of Shift Summary: Goal met. VSS and denied pain. RN went over education and discharge summary with the patient and his . They both reported no concerns or questions. RN was notified to S about sending the new Rxs to his hometown pharmacy at [place]. Escort was called. Pt. Will be transport by to go home. L * Arlet Patterson R.N. - 08/06/2023 4:58 AM CST Problem: SAFETY ADULT Goal: Maintain a safe environment Outcome: Progressing Problem: PAIN - ADULT Goal: PT VERBALIZES/DEMONSTRATES ADEQUATE COMFORT LEVEL OR BASELINE Outcome: Progressing Problem: KNOWLEDGE DEFICIT Goal: Patient/family/caregiver demonstrates understanding of disease process, treatment plan, medications, and discharge instructions Outcome: Progressing Problem: INFECTION - ADULT Goal: Absence of infection during hospitalization Outcome: Progressing Problem: SKIN/TISSUE INTEGRITY Goal: Skin/Tissue integrity maintained or improved Outcome: Progressing Shift Goals: Clinical Goals for the Shift: Pt will remain hemodynamically stable Identify possible barriers to meeting goals/advancing plan of care: None End of Shift Summary: Another 1 Unit of blood transfused during the shift.Latest Hb 8.0. K+ was replaced again of 60 meq K+ tablet. Slept intermittently due to bathroom needs. No BM overnight. L * Micki Bowling C.R.T. - 08/05/2023 11:36 PM CST Patient is a 72 y.o. male Admitted on 08/05/2023 Principal Problem: Anemia Alert Information: Shift Summary: 2103 Pt seen for noninvasive ventilation. Pt on room air. Reported that home CPAP only goes to a max of 10. Pt reports medium mask fits uncomfortable compared to his home mask. Attempted smaller mask, pt did not like it. Pt left on medium nasal mask with a CPAP of 10. Non-Invasive Support: BPAP/CPAP Interface: Nasal mask BPAP/CPAP Interface Size: Medium EPAP: 10 cmh2o Oxygen Therapy: $Delivery Method: Room air Flow Rate (L/min): 2 L/min Recent ABG: No results for input(s): PO2 ART, PCO2 ART, PH ART, HCO3 ART, BASE EXC ART in the last 24hours. Smoking History: Social History Tobacco Use Smoking Status Former Packs/day: 1.00 Years: 22.00 Additional pack years: 0.00 Total pack years: 22.00 Types: Cigarettes Quit date: 02/07/1989 Years since quittin.5 Passive exposure: Never Smokeless Tobacco Former Types: Snuff, Chew Quit date: 04/18/2023 Recent CPT: Micki Bowling C.R.T. 08/05/23 11:36 PM MOHEL L documented in this encounter ED Notes * Bharat Reyna P.A.-C. - 08/05/2023 3:35 PM CST Disposition pending CT imaging. Patient is a very pleasant 72-year-old gentleman with a history of lymphoma undergoing chemotherapywho presents today with shortness of breath and weakness. He is found to have a 1.2 g drop in his hemoglobin as an outpatient. Reports approximately a week ago he fell forward onto his hands and knees after he lost his balance with his walker. He states he did not strike his head he did not lose consciousness he has had no headache since then.We have obtained imaging of the chest abdomen and pelvis which demonstrates no acute traumatic injury and no obvious source of bleeding . Hemoccult is negative. We we have consulted him for transfusion will admit to medicine service. Patient and family are in agreement with the plan VITAL SIGNS BP (!) 114/52 Pulse 71 Temp 36.7 ??C Resp 18 Wt 81.4 kg SpO2 96% BMI 26.52 kg/m?? Final Diagnoses: as of 08/05/23 1535 Hypokalemia Thrombocytopenia (HCC) Anemia History Of Falling Bharat Reyna P.A.-C. 08/05/23 1536 L * Megan Shearer P.A.-C., M.S. - 08/05/2023 1:48 PM CST SUBJECTIVE CHIEF COMPLAINT/REASON FOR VISIT Abnormal Lab HISTORY OF PRESENT ILLNESS Hola Lau is a 72 y.o. male with a PMH including type 2 diabetes, CONNIE, hyperlipidemia, hypertension, lymphoma, follicular thyroid cancer s/p thyroidectomy, stroke who presents to the ED for abnormal lab. He had outpatient labs performed at an outside facility earlier today. This resulted with h emoglobin of 6.6 which had decreased from 7.8 one week prior. He reported increased generalized weakness, lightheadedness, and shortness of breath with exertion and was directed to the Emergency Department for further evaluation. He denies any lightheadedness or shortness of breath at rest. She is no fever or chills. No syncope. He reports feeling slightly lightheaded with exertion. His partner states he has modified his activity due to decreased tolerance. He denies shortness of breath to me. No hemoptysis or chest discomfort. No nausea, vomiting, or abdominal pain. He has been having diarrhea over the past 4-5 days. He states this is dark brown in color. He denies any hematochezia. He reports multiple episodes per day, but has difficulty further quantifying this. He does report a mechanical fall 1 week ago. He states his walker earlier went too far away from him and he tripped and fell forward. He does have a history of drop foot on the right. He reports falling onto his knees and the right side of his chest. He denies any head trauma or loss of consciousness. He is not anticoagula amaris. He is currently on chemotherapy for large B-cell lymphoma, last session 07/24. History provided by: Patient, medical records and significant other REVIEW OF SYSTEMS See HPI OBJECTIVE Initial Vitals Temperature 08/05/23 1221 36.5 ??C Pulse Rate 08/05/23 1221 67 Heart Rate 08/05/23 1245 81 Resp Rate 08/05/23 1221 18 Blood Pressure 08/05/23 1221 (!) 95/53 SpO2 08/05/23 1221 99 % Pain Score 08/05/23 1257 0 - No pain PHYSICAL EXAMINATION Constitutional: Nursing note and vitals reviewed. He is sitting in bed. He appears chronically ill. No apparent distress. HENT: Head: Normocephalic and atraumatic. Mouth/Throat: Mucous membranes are dry. Eyes: Conjunctivae are normal. Pupils are equal, round, and reactive to light. Cardiovascular: Normal rate, regular rhythm and normal heart sounds. Capillary refill: takes less than 3 seconds No lower extremity edema or tenderness. Pulmonary/Chest: Effort normal and breath sounds normal. No tachypnea. Abdominal: Soft. exhibits no distension. There is no abdominal tenderness. There is no CVA tenderness. Rectal exam shows brown stool. Anna JERNIGAN present as staffing coordinator. Musculoskeletal: Comments: No midline spinal tenderness or deformity. Normal ROM in bilateral shoulders, elbows, wrists, MCP, and IP joints. No obvious deformity or tenderness in bilateral upper extremities. No clavicular deformity or tenderness bilaterally. Tenderness over right ribs 5-10 without crepitus. No other tenderness or crepitus with palpation of chest wall. Pelvis stable to compression. Normal ROM in bilateral hips, knees, ankles, and MTP joints. No obvious deformity or tenderness in bilateral lower extremities. Neurological: Alert and oriented to person, place, and time. Moving all 4 extremities equally, normal strength throughout. Sensation intact throughout. Skin: Skin is warm and dry. He is not diaphoretic. There is pallor. Abrasion over bilateral knees, no deformity or tenderness. Psychiatric: He has a normal mood and affect. ASSESSMENT/PLAN Assessment and Plan Patient presents to the Emergency Department for worsening anemia on outpatient labs. He does report feeling generally weak and lightheaded with exertion in the past few days. He also has had diarrhea for the past 4-5 days. He is afebrile on arrival. He initially is borderline hypotensive, but thisquickly improves with fluids. And no tachycardia. He is saturating well on room air. Differential in cludes symptomatic anemia, ROMEO, electrolyte derangement, pleural effusion, pneumothorax, rib fracture, arrhythmia, intra-abdominal hematoma, among others. We will obtain EKG, labs, and CT chest abdomen pelvis to further evaluate for acute abnormality. He denies any head trauma or loss of consciousness during fall 1 week ago and has no evidence of head trauma on exam. Considering this and nonfocalneurologic exam I do not feel head CT or CT cervical spine are indicated at this time. Hemoccult isnegative on my initial assessment so I feel GI bleed is less likely. Further management pending ED course. I reviewed the following external records: prior outpatient labs. ED Course as of 08/05/23 1510 SatAug 05, 2023 1331 Hemoglobin(!): 6.5 Stable from 6.6 earlier today. Decreased from 7.8 one week ago 1332 Platelet Count(!): 99 Decreased from 215 one week ago 1332 White Blood Cell Count: 7.5 Normal 1332 Neutrophils(!): 6.64 No neutropenia 1333 Potassium, P(!): 2.6 Hypokalemia, will replace 1333 Creatinine: 0.80 Normal renal function 1345 Patient hypoxic to 85% on room air at rest, improved with nasal cannula. Will change CT to CTPE protocol. 1357 ECG 12 Lead Normal sinus rhythm with a rate of 72 bpm. No acute ischemic changes. Other than lack of PACs, no significant change from prior. 1421 Aspartate Aminotransferase (AST), S: 19 1421 Alanine Aminotransferase (ALT), S: 14 1421 Alkaline Phosphatase, S: 92 1421 Bilirubin, Total, S: <0.2 1430 Patient was discussed with and signed out to the oncoming team at the end of my shift. Disposition pending CT imaging results. Anticipate need for transfusion and admission. Consent obtained fortransfusion. Blood ordered. The evaluation and plan thus far were discussed with the patient who expressed understanding and is in agreement. Final Diagnoses: as of 08/05/23 1510 Hypokalemia Thrombocytopenia (HCC) Anemia History Of Falling My ECG interpretation is documented in ED Course. Megan Shearer P.A.-C., M.S. 08/05/23 1510 L * Jose Segovia R.N. - 08/05/2023 12:17 PM CST Pt has had abdominal gurgling and today had a loose stool that looked like mucous, with no color. He has had diarrhea recently, but denies blood in the stool. At the beginning of chemo, he had a tarry, black stool and hasn't had one since. He has labs draw today and HGB was 6.6 down from 7.8 on 07/29. He denies chest pain, changes in SOB. A week ago today, pt had a fall face first from standing. He did not have LOC. He had a neighbor help him up off the floor. He was not evaluated after that fall. He notes a muscle pull on his rightribs but states it does not hurt to take a deep breath. Jose Segovia R.N. 08/05/23 1225 L documented in this encounter Miscellaneous Notes * Hospital Course - Roseann Sheldon M.B., B.Td., B.A.O. - 08/07/2023 2:17 PM CST Hola Lau is a 72 y.o. 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 The labs were done in the outpatient settings and then the patient was recommended to present to the ED. On presentation to the emergency department he was hemodynamically stable and did not endorse any bleeding. There was no melena or hematemesis. He received transfusions with 2 units of red blood cells. His potassium was also repleted. The patient was monitored in hospital for two days and his hemoglobin remained stable. In conclusion his anemia was most likely in the setting of own marrow suppression from chemotherapy. His hemoglobin stabilized over the course of the admission to 8 He also had thrombocytopenia with a drop from 200 which is his baseline to line T. This improved over the course of the admission 139. The patient also had hypokalemia and hypomagnesemia during this admission. We have repleted those electrolytes and increased the dose of his home pottassium supplements and also added magnesium replacement. In regards to etiology it is multifactorial. He usually gets Diarrhea after his chemotherapywhich depleted his electrolytes.There may also be component of due to kidney wasting of K associated with the cyclophosphamide and Polatuzumab. We reached out to his oncologist Dr Cordero who recommended that we consider an EGD to look for a slow GI bleed from his duodenal mass and to also assess treatment response. We decided to do this inthe outpatient setting and we scheduled him for an EGD after discharge on 08/08. He also has a PET scan scheduled in the outpatient setting on August 09 to assess response to chemotherapy. In terms of his chemotherapy he will follow-up with his oncologist on SaturdayAugust 12 with repeat labs and then further discussions regarding his chemotherapy treatments. DISCHARGE RECOMMENDATIONS EGD tommorow on 08/08 to reassess duodenal mass to check response to chemotherapy and to also look for a slow GI bleed PET scan scheduled for August 09 to assess tumor progression/chemotherapy response Home potassium supplements increased given his hypokalemia Magnesium Supplements added for his Low Mg Labs including BMP and CBC to reassess anemia and also electrolytes and further adjust his supplements. L documented in this encounter Plan of Treatment Upcoming Encounters Date Type Department Care Team (Latest Contact Info) Description 10/06/2023 9:04 AM MOHEL - 10/06/2023 11:24 AM MOHEL Surgery [facility] MAIN OR [address] [place] [phone] Cameron Saenz M.D. [address] [place] [phone] ABDOMINAL EXPLORATION, REMOVAL ABTHERA, POSSBLE BOWEL RESECTION, PROCEED INDICATED 10/11/2023 7:00 AM MOHEL Appointment Department of Laboratory Medicine and Pathology, [facility], in [place], [place] [address] [place] [phone] Arti Epstein M.B.B.S. [address] [place] [phone] 10/11/2023 9:00 AM MOHEL Office Visit Division of Hematology in [address] [phone] Arti Epstein M.B.B.S. [address] [place] [phone] 10/11/2023 10:00 AM MOHEL Infusion Department of Oncology in [address] [phone] Bev Gifford APRN, C.N.P., M.S.N. [address] [place] [phone] 11/19/2023 10:00 AM CDT Office Visit Division of Endocrinology in [place], [place] [address] [place] [phone] [place] Mendoza APRN, C.N.P., M.S. [address] [place] [phone] 11/19/2023 2:30 PM CDT Comprehensive Visit Division of Hepatobiliary and Pancreas Surgery in [place], [place] [address] [place] [phone] Wesley Hamilton M.D. [address] [place] [phone] Pending Results Name Type Priority Associated Diagnoses Date /Time Prepare Red Blood Cells, 1 Units Blood Bank Routine 08/05/2023 1:06 PM MOHEL Prepare Red Blood Cells, 1 Units Blood Bank Routine 08/05/2023 1:06 PM MOHEL Scheduled Procedures Name Priority Associated Diagnoses Date/Ti me LAPAROTOMY - ABDOMINAL WASHOUT Ischemia Intestinal With Stricture (HCC) 10/06/2023 9:04 AM MOHEL documented as of this encounter Procedures Procedure Name Priority Date/Time Associated Diagnosis Comments GLUCOSE POCT, B Routine 08/07/2023 11:49 AM MOHEL CBC WITHOUT DIFFERENTIAL, B Routine 08/07/2023 9:19 AM MOHEL PHOSPHORUS (INORGANIC), S Routine 08/07/2023 9:19 AM MOHEL MAGNESIUM, S Routine 08/07/2023 9:19 AM MOHEL COMPREHENSIVE METABOLIC PANEL, S/P Routine 08/07/2023 9:19 AM MOHEL GLUCOSE POCT, B Routine 08/07/2023 7:45 AM MOHEL GLUCOSE POCT, B Routine 08/06/2023 8:19 PM MOHEL GLUCOSE POCT, B Routine 08/06/2023 4:01 PM MOHEL GLUCOSE POCT, B Routine 08/06/2023 12:12 PM MOHEL GLUCOSE POCT, B Routine 08/06/2023 8:21 AM MOHEL CBC WITH DIFFERENTIAL, B Routine 08/06/2023 6:35 AM MOHEL MAGNESIUM, S Routine 08/06/2023 6:35 AM MOHEL BASIC METABOLIC PANEL, S/P Routine 08/06/2023 6:35 AM MOHEL HEMOGLOBIN, B Timed 08/06/2023 12:24 AM MOHEL TRANSFUSE RED BLOOD CELLS Routine 08/05/2023 9:29 PM MOHEL GLUCOSE POCT, B Routine 08/05/2023 8:03 PM MOHEL RETICULOCYTE PROFILE, B Timed 08/05/2023 7:35 PM MOHEL SPSMA RESULT Timed 08/05/2023 7:35 PM MOHEL IRON AND TOT IRON-BINDING CAPACITY, S/P Timed 08/05/2023 7:35 PM MOHEL CBC WITH DIFFERENTIAL, B Timed 08/05/2023 7:35 PM MOHEL LACTATE DEHYDROGENASE (LD), S Timed 08/05/2023 7:35 PM MOHEL HAPTOGLOBIN, S Timed 08/05/2023 7:35 PM MOHEL FERRITIN, S Timed 08/05/2023 7:35 PM MOHEL BASIC METABOLIC PANEL, S/P Timed 08/05/2023 7:35 PM MOHEL SOLUBLE TRANSFERRIN RECEPTOR (STFR), S Routine 08/05/2023 7:30 PM MOHEL TRANSFUSE RED BLOOD CELLS Routine 08/05/2023 3:27 PM MOHEL BACTERIA / NANCY CULTURE, BLOOD STAT 08/05/2023 3:[address] CHEST ANGIOGRAM AND PULMONARY ARTERIES WITH IV CONTRAST RAD - Semiurgent (Fast; most ED patients; some inpatients) 08/05/2023 2:[address] ABDOMEN PELVIS WITH IV CONTRAST RAD - Routine (most inpatients and all outpatients) 08/05/2023 2:24 PM MOHEL LACTATE, POCT, B STAT 08/05/2023 1:38 PM MOHEL BACTERIA / NANCY CULTURE, BLOOD STAT 08/05/2023 1:36 PM MOHEL PROTHROMBIN TIME (PT), P STAT 08/05/2023 1:35 PM MOHEL HEPATIC FUNCTION PANEL, S STAT 08/05/2023 1:06 PM MOHEL CBC WITH DIFFERENTIAL, B STAT 08/05/2023 1:06 PM MOHEL PREPARE RED BLOOD CELLS Routine 08/05/2023 1:06 PM MOHEL PREPARE RED BLOOD CELLS Routine 08/05/2023 1:06 PM MOHEL TYPE AND SCREEN STAT 08/05/2023 1:06 PM MOHEL LIPASE, S/P STAT 08/05/2023 1:06 PM MOHEL BASIC METABOLIC PANEL, S/P STAT 08/05/2023 1:06 PM MOHEL ECG STAT 08/05/2023 12:31 PM MOHEL documented in this encounter Results * Glucose, POCT (08/07/2023 11:49 AM MOHEL) Glucose, POCT, B 80 70 - 140 mg/dL 08/07/2023 12:01 PM MOHEL PCLX Site Capillary 08/07/2023 12:01 PM MOHEL PCLX Last Intake NPO 08/07/2023 12:01 PM MOHEL PCLX Blood 08/07/2023 11:4 9 AM MOHEL 08/07/2023 12:01 PM MOHEL Unknown Provider LAB POCT ORDERABLES- MANUAL POC [facility] 200 [place] [address], [facility] PCLX [facility] POC 200 [place] [address] * (ABNORMAL) CBC without Differential (08/07/2023 9:19 AM MOHEL) Hemoglobin 8.0(L) 13.2 - 16.6 g/dL 08/07/2023 10:51 AM MOHEL DTL Hematocrit 25.6(L) 38.3 - 48.6 % 08/07/2023 10:51 AM MOHEL DTL Erythrocytes 2.91(L) 4.35 - 5.65 x10(12)/L 08/07/2023 10:51 AM MOHEL DTL MCV 88.0 78.2 - 97.9 fL 08/07/2023 10:51 AM MOHEL DTL RBC Distrib Width 20.8(H) 11.8 - 14.5 % 08/07/2023 10:51 AM MOHEL DTL Platelet Count 139 135 - 317 x10(9)/L 08/07/2023 10:51 AM MOHEL DTL Leukocytes 6.4 3.4 - 9.6 x10(9)/L 08/07/2023 10:51 AM MOHEL DTL Blood (Blood, Venous) 08/07/2023 9:19 AM MOHEL 08/07/2023 10:06 AM MOHEL Roseann Burgos, B.Ch., B.A.O. LAB B LOOD ADD-ON Performing Organization Address City/[facility]/ZIP Co de Phone Number [facility] 200 [place] [address], [facility] DTL [facility] [place] 200 [place] [address] * (ABNORMAL) Comprehensive Metabolic Panel (08/07/2023 9:19 AM MOHEL) Potassium, S 3.7 3.6 - 5.2 mmol/L 08/07/2023 10:35 AM MOHEL DTL Sodium, S 144 135 - 145 mmol/L 08/07/2023 10:35 AM MOHEL DTL Chloride, S 108(H) 98 - 107 mmol/L 08/07/2023 10:35 AM MOHEL DTL Bicarbonate, S 26 22 - 29 mmol/L 08/07/2023 10:35 AM MOHEL DTL Anion Gap 10 7 - 15 08/07/2023 10:35 AM MOHEL DTL BUN (Blood Urea Nitrogen), S 5(L) 8 - 24 mg/dL 08/07/2023 10:35 AM MOHEL DTL Creatinine 0.66(L) 0.74 - 1.35 mg/dL 08/07/2023 10:35 AM MOHEL DTL Estimated GFR (eGFR) >90 >=60 mL/min/BS A 08/07/2023 10:35 AM MOHEL DTL Comment: Estimated GFR calculated using the 2020 CKD_EPI creatinine equation. Calcium, Total, S 7.2(L) 8.8 - 10.2 mg/dL 08/07/2023 10:35 AM MOHEL DTL Glucose, S 77 70 - 140 mg/dL 08/07/2023 10:35 AM MOHEL DTL Protein, Total, S 4.1(L) 6.3 - 7.9 g/dL 08/07/2023 10:35 AM MOHEL DTL Albumin, S 2.6(L) 3.5 - 5.0 g/dL 08/07/2023 10:35 AM MOHEL DTL Aspartate Aminotransferase (AST), S 20 8 - 48 U/L 08/07/2023 10:35 AM MOHEL DTL Alkaline Phosphatase, S 94 40 - 129 U/L 08/07/2023 10:35 AM MOHEL DTL Alanine Aminotransferase (ALT), S 9 7 - 55 U/L 08/07/2023 10:35 AM MOHEL DTL Bilirubin, Total, S 0.3 0.0 - 1.2 mg/dL 08/07/2023 10:35 AM MOHEL DTL Blood (Blood, Venous) 08/07/2023 9:19 AM MOHEL 08/07/2023 10:13 AM MOHEL Sindy De La Torre.Ch., B.A.O. LAB B LOOD ADD-ON Performing Organization Address City/[facility]/ZIP Co de Phone Number [facility] 200 [place] [address], [facility] 200 [place] [address] * Phosphorus Inorganic (08/07/2023 9:19 AM MOHEL) Pathologist [facility] Phosphorus (Inorganic), S 2.8 2.5 - 4.5 mg/dL 08/07/2023 10:35 AM MOHEL DTL Blood (Blood, Venous) 08/07/2023 9:19 AM MOHEL 08/07/2023 10:13 AM MOHEL Roseann Burgos, Sindy.Ch., B.A.O. LAB B LOOD ADD-ON Performing Organization Address City/[facility] Co de Phone Number [facility] [address] [place] [address] * (ABNORMAL) Magnesium (08/07/2023 9:19 AM MOHEL) [facility] Magnesium, S 1.4(L) 1.7 - 2.3 mg/dL 08/07/2023 10:35 AM MOHEL DTL Blood (Blood, Venous) 08/07/2023 9:19 AM MOHEL 08/07/2023 10:13 AM MOHEL Roseann Burgos, Sindy.Ch., B.A.O. LAB B LOOD ADD-ON Performing Organization Address City/[facility] Co de Phone Number [facility] [address] [place] [address] * Glucose, POCT (08/07/2023 7:45 AM MOHEL) Glucose, POCT, B 71 70 - 140 mg/dL 08/07/2023 7:50 AM MOHEL PCLX Site Capillary 08/07/2023 7:50 AM MOHEL PCLX Last Intake 2-3 hours 08/07/2023 7:50 AM MOHEL PCLX Blood 08/07/2023 7:45 AM MOHEL 08/07/2023 7:50 AM MOHEL Unknown Provider LAB POCT ORDERABLES- MANUAL Performing Organization Address City/[facility]/ZIP Co de Phone Number POC [facility] [address] [place] [address], [place] PCLX [facility] POC [address] [place] [address] * Glucose, POCT (08/06/2023 8:19 PM MOHEL) Glucose, POCT, B 95 70 - 140 mg/dL 08/06/2023 8:25 PM MOHEL PCLX Site Capillary 08/06/2023 8:25 PM MOHEL PCLX Last Intake 3-4 hours 08/06/2023 8:25 PM MOHEL PCLX Blood 08/06/2023 8:19 PM MOHEL 08/06/2023 8:25 PM MOHEL Unknown Provider LAB POCT ORDERABLES- MANUAL Performing Organization Address [facility] Co de Phone Number POC [facility] [address] [place] [address], [place] PCLX [facility] POC [address] [place] [address] * Glucose, POCT (08/06/2023 4:01 PM MOHEL) Glucose, POCT, B 91 70 - 140 mg/dL 08/06/2023 4:03 PM MOHEL PCLX Site Capillary 08/06/2023 4:03 PM MOHEL PCLX Blood 08/06/2023 4:01 PM MOHEL 08/06/2023 4:03 PM MOHEL Unknown Provider LAB POCT ORDERABLES- MANUAL Performing Organization Address City/[facility]/ZIP Co de Phone Number POC [facility] [address] [place] [address], [place] PCLX [facility] POC [address] [place] [address] * Glucose, POCT (08/06/2023 12:12 PM MOHEL) Glucose, POCT, B 124 70 - 140 mg/dL 08/06/2023 12:15 PM MOHEL PCLX Site Capillary 08/06/2023 12:15 PM MOHEL PCLX Last Intake 2-3 hours 08/06/2023 12:15 PM MOHEL PCLX Blood 08/06/2023 12:1 2 PM MOHEL 08/06/2023 12:15 PM MOHEL Unknown Provider LAB POCT ORDERABLES- MANUAL POC [facility] [address] [place] [address], [place] PCLX [facility] POC [address] [place] [address] * Glucose, POCT (08/06/2023 8:21 AM MOHEL) Glucose, POCT, B 75 70 - 140 mg/dL 08/06/2023 8:24 AM MOHEL PCLX Site Capillary 08/06/2023 8:24 AM MOHEL PCLX Last Intake > 4 hours 08/06/2023 8:24 AM MOHEL PCLX Blood 08/06/2023 8:21 AM MOHEL 08/06/2023 8:24 AM MOHEL Unknown Provider LAB POCT ORDERABLES- MANUAL POC [facility] [address] [place] [address], [place] PCLX [facility] POC [address] [place] [address] * (ABNORMAL) Magnesium (08/06/2023 6:35 AM MOHEL) Magnesium, S 1.2(L) 1.7 - 2.3 mg/dL 08/06/2023 1:40 PM MOHEL DTL Blood (Blood, Venous) 08/06/2023 6:35 AM MOHEL 08/06/2023 1:00 PM MOHEL Roseann Burgos, B.Td., B.A.O. LAB B LOOD ADD-ON Performing Organization Address City/[facility]/ZIP Co de Phone Number [facility] 200 [place] [address], [facility] DTL [facility] 200 [place] [address] * (ABNORMAL) Basic Metabolic Panel (08/06/2023 6:35 AM MOHEL) Pathologist [facility] Potassium, S 3.9 3.6 - 5.2 mmol/L 08/06/2023 8:34 AM MOHEL DTL Sodium, S 144 135 - 145 mmol/L 08/06/2023 8:34 AM MOHEL DTL Chloride, S 111(H) 98 - 107 mmol/L 08/06/2023 8:34 AM MOHEL DTL Bicarbonate, S 24 22 - 29 mmol/L 08/06/2023 8:34 AM MOHEL DTL Anion Gap 9 7 - 15 08/06/2023 8:34 AM MOHEL DTL BUN (Blood Urea Nitrogen), S 7(L) 8 - 24 mg/dL 08/06/2023 8:34 AM MOHEL DTL Creatinine 0.75 0.74 - 1.35 mg/dL 08/06/2023 8:34 AM MOHEL DTL Estimated GFR (eGFR) >90 >=60 mL/min/BSA 08/06/2023 8:34 AM MOHEL DTL Comment: Estimated GFR calculated using the 2020 CKD_EPI creatinine equation. Calcium, Total, S 7.2(L) 8.8 - 10.2 mg/dL 08/06/2023 8:34 AM MOHEL DTL Glucose, S 79 70 - 140 mg/dL 08/06/2023 8:34 AM MOHEL DTL Blood (Blood, Venous) 08/06/2023 6:35 AM MOHEL 08/06/2023 7:21 AM MOHEL Lenny Peters M.D. LAB BLOOD ADD-ON Performing Organization Address City/[facility]/ZIP Co de Phone Number [facility] [address] [place] [address], [facility] DTL [facility] [address] [address] * (ABNORMAL) CBC with Differential, Blood (08/06/2023 6:35 AM MOHEL) Hemoglobin 7.9(L) 13.2 - 16.6 g/dL 08/06/2023 7:12 AM MOHEL DTL Hematocrit 24.4(L) 38.3 - 48.6 % 08/06/2023 7:12 AM MOHEL DTL Erythrocytes 2.79(L) 4.35 - 5.65 x10(12)/L 08/06/2023 7:12 AM MOHEL DTL MCV 87.5 78.2 - 97.9 fL 08/06/2023 7:12 AM MOHEL DTL RBC Distrib Width 20.2(H) 11.8 - 14.5 % 08/06/2023 7:12 AM MOHEL DTL Platelet Count 96(L) 135 - 317 x10(9)/L 08/06/2023 7:12 AM MOHEL DTL Leukocytes 5.9 3.4 - 9.6 x10(9)/L 08/06/2023 7:12 AM MOHEL DTL Neutrophils 5.24 1.56 - 6.45 x10(9)/L 08/06/2023 7:11 AM MOHEL DHPM Lymphocytes 0.18(L) 0.95 - 3.07 x10(9)/L 08/06/2023 7:12 AM MOHEL DTL Monocytes 0.33 0.26 - 0.81 x10(9)/L 08/06/2023 7:12 AM MOHEL DTL Eosinophils 0.10 0.03 - 0.48 x10(9)/L 08/06/2023 7:12 AM MOHEL DTL Basophils 0.05 0.01 - 0.08 x10(9)/L 08/06/2023 7:12 AM MOHEL DTL Blood (Blood, Venous) 08/06/2023 6:35 AM MOHEL 08/06/2023 6:58 AM MOHEL Lenny Peters M.D. LAB BLOOD ADD-ON [facility] [address] [place] [address], [facility] 200 [place] [address] [facility] 200 [place] [address] * (ABNORMAL) Hemoglobin (08/06/2023 12:24 AM MOHEL) Hemoglobin 8.0(L) 13.2 - 16.6 g/dL 08/06/2023 1:11 AM MOHEL DTL Blood (Blood, Venous) 08/06/2023 12:24 AM MOHEL 08/06/2023 1:03 AM MOHEL Lenny Peters M.D. LAB BLOOD ADD-ON Performing Organization Address City/[facility] Co de Phone Number [facility] 200 [place] [address], [facility] 200 [place] [address] * Transfuse Red Blood Cells : (08/05/2023 11:39 PM MOHEL) Lenny Peters M.D. BLOOD TRANSFUSIO N ORDERABLES * Transfuse Red Blood Cells : , 1 Units (08/05/2023 11:39 PM MOHEL) Lenny Peters M.D. BLOOD TRANSFUSIO N ORDERABLES * Glucose, POCT (08/05/2023 8:03 PM MOHEL) Pathologist [facility] Glucose, POCT, B 105 70 - 140 mg/dL 08/05/2023 8:08 PM MOHEL PCLX Last Intake 3-4 hours 08/05/2023 8:08 PM MOHEL PCLX Blood 08/05/2023 8:03 PM MOHEL 08/05/2023 8:08 PM MOHEL Unknown Provider LAB POCT ORDERABLES- MANUAL Performing Organization Address City/[facility]/ZIP Co de Phone Number POC [facility] [address] [place] [address], [facility] PCLX [facility] POC 200 [facility] [address] * (ABNORMAL) SPSMA Result (08/05/2023 7:35 PM MOHEL) Neutrophilic Segs and Bands 92(H) 50 - 75 % 08/05/2023 9:18 PM MOHEL DHPM Lymphocytes 4(L) 18 - 42 % 08/05/2023 9:18 PM MOHEL DHPM Monocytes 1(L) 2 - 11 % 08/05/2023 9:18 PM MOHEL DHPM Eosinophils 2 1 - 3 % 08/05/2023 9:18 PM MOHEL DHPM Basophils 1 0 - 2 % 08/05/2023 9:18 PM MOHEL DHPM Manual Absolute Neutrophil Count 5.98 1.56 - 6.45 x10(9)/L 08/05/2023 9:18 PM MOHEL DHPM Comment: ----ADDITIONAL INFORMATION---- The manual absolute neutrophil count is derived from a manual differential count and therefore is not exactly comparable to the automated absolute neutrophil count. Interpretation See Comment 9:18 PM MOHEL DHPM Comment: Peripheral blood smear reviewed: no diagnostic abnormalities are seen. No schistocytes are seen. No platelet clumping. Reviewed by: Tech 08/05/2023 9:18 PM MOHEL DHPM Blood (Blood, Venous) 08/05/2023 7:35 PM MOHEL 08/05/2023 8:02 PM MOHEL Lenny Peters M.D. LAB BLOOD ADD-ON [facility] [address] [place] [address], [facility] [address] [place] [address] * (ABNORMAL) Haptoglobin (08/05/2023 7:35 PM MOHEL) Haptoglobin, S 256(H) 30 - 200 mg/dL 08/06/2023 8:37 AM MOHEL [facility] Blood (Blood, Venous) 08/05/2023 7:35 PM MOHEL 08/06/2023 6:18 AM MOHEL Lenny Peters M.D. LAB BLOOD ADD-ON [facility] [address] [place] [address] [facility] [address] [place] [address] * (ABNORMAL) Basic Metabolic Panel (08/05/2023 7:35 PM MOHEL) Pathologist [facility] Potassium, S 3.2(L) 3.6 - 5.2 mmol/L 08/05/2023 9:44 PM MOHEL DTL Sodium, S 142 135 - 145 mmol/L 08/05/2023 9:44 PM MOHEL DTL Chloride, S 109(H) 98 - 107 mmol/L 08/05/2023 9:44 PM MOHEL DTL Bicarbonate, S 25 22 - 29 mmol/L 08/05/2023 9:44 PM MOHEL DTL Anion Gap 8 7 - 15 08/05/2023 9:44 PM MOHEL DTL BUN (Blood Urea Nitrogen), S 9 8 - 24 mg/dL 08/05/2023 9:44 PM MOHEL DTL Creatinine 0.80 0.74 - 1.35 mg/dL 08/05/2023 9:44 PM MOHEL DTL Estimated GFR (eGFR) >90 >=60 mL/min/BSA 08/05/2023 9:44 PM MOHEL DTL Comment: Estimated GFR calculated using the 2020 CKD_EPI creatinine equation. Calcium, Total, S 7.0(L) 8.8 - 10.2 mg/dL 08/05/2023 9:44 PM MOHEL DTL Glucose, S 115 70 - 140 mg/dL 08/05/2023 9:44 PM MOHEL DTL Blood (Blood, Venous) 08/05/2023 7:35 PM MOHEL 08/05/2023 8:13 PM MOHEL Lenny Peters M.D. LAB BLOOD ADD-ON [facility] [address] [place] [address], [facility] DTL [facility] [address] [place] [address] * (ABNORMAL) Iron and Total Iron-Binding Capacity (08/05/2023 7:35 PM MOHEL) [facility] Iron 38(L) 50 - 150 mcg/dL 08/05/2023 9:44 PM MOHEL DTL Total Iron Binding Capacity 124(L) 250 - 400 mcg/dL 08/05/2023 9:44 PM MOHEL DTL Percent Saturation 31 14 - 50 % 08/05/2023 9:44 PM MOHEL DTL Blood (Blood, Venous) 08/05/2023 7:35 PM MOHEL 08/05/2023 8:13 PM MOHEL Lenny Peters M.D. LAB BLOOD ADD-ON [facility] 200 [place] [address], [facility] [address] [place] [address] * (ABNORMAL) Ferritin (08/05/2023 7:35 PM MOHEL) [facility] Ferritin, S 597(H) 31 - 409 mcg/L 08/05/2023 9:44 PM MOHEL DTL Blood (Blood, Venous) 08/05/2023 7:35 PM MOHEL 08/05/2023 8:13 PM MOHEL Lenny Peters M.D. LAB BLOOD ADD-ON [facility] [address] [place] [address], [facility] [address] [place] [address] * LD (Lactate Dehydrogenase) (08/05/2023 7:35 PM MOHEL) [facility] LD 188 122 - 222 U/L 08/05/2023 8:27 PM MOHEL DTL Blood (Blood, Venous) 08/05/2023 7:35 PM MOHEL 08/05/2023 8:13 PM MOHEL Lenny Peters M.D. LAB BLOOD NON AD D-ON Performing Organization Address City/[facility]/ZIP Co de Phone Number [facility] [address] [place], [place] [address] [address] [address] * (ABNORMAL) Reticulocyte Profile (08/05/2023 7:35 PM MOHEL) Reticulocytes, B 1.57 0.60 - 2.71 % 08/05/2023 8:09 PM MOHEL DTL Absolute Reticulocyte 38.3 30.4 - 110.9 x10(9)/L 08/05/2023 8:09 PM MOHEL DTL Immature Reticulocyte Fraction 33.8(H) 2.3 - 13.4 % 08/05/2023 8:09 PM MOHEL DTL Reticulocyte Hemoglobin 32.1 30.0 - 37.6 pg 08/05/2023 8:09 PM MOHEL DTL Erythrocytes 2.44(L) 4.35 - 5.65 x10(12)/L 08/05/2023 8:09 PM MOHEL DTL Blood (Blood, Venous) 08/05/2023 7:35 PM MOHEL 08/05/2023 8:02 PM MOHEL Lenny Peters M.D. LAB BLOOD ADD-ON Performing Organization Address City/[facility]/ZIP Co de Phone Number [facility] [address] [place] [address], [facility] [address] [place] [address] * (ABNORMAL) CBC with Differential, Blood (08/05/2023 7:35 PM MOHEL) Hemoglobin 6.7(L) 13.2 - 16.6 g/dL 08/05/2023 8:09 PM MOHEL DTL Hematocrit 21.2(L) 38.3 - 48.6 % 08/05/2023 8:09 PM MOHEL DTL Erythrocytes 2.44(L) 4.35 - 5.65 x10(12)/L 08/05/2023 8:09 PM MOHEL DTL MCV 86.9 78.2 - 97.9 fL 08/05/2023 8:09 PM MOHEL DTL RBC Distrib Width 21.6(H) 11.8 - 14.5 % 08/05/2023 8:09 PM MOHEL DTL Platelet Count 93(L) 135 - 317 x10(9)/L 08/05/2023 8:09 PM MOHEL DTL Leukocytes 6.5 3.4 - 9.6 x10(9)/L 08/05/2023 8:09 PM MOHEL DTL Neutrophils 5.75 1.56 - 6.45 x10(9)/L 08/05/2023 8:09 PM MOHEL DHPM Lymphocytes 0.21(L) 0.95 - 3.07 x10(9)/L 08/05/2023 8:09 PM MOHEL DTL Monocytes 0.38 0.26 - 0.81 x10(9)/L 08/05/2023 8:09 PM MOHEL DTL Eosinophils 0.13 0.03 - 0.48 x10(9)/L 08/05/2023 8:09 PM MOHEL DTL Basophils 0.03 0.01 - 0.08 x10(9)/L 08/05/2023 8:09 PM MOHEL DTL Blood (Blood, Venous) 08/05/2023 7:35 PM MOHEL 08/05/2023 8:02 PM MOHEL Lenny Peters M.D. LAB BLOOD ADD-ON [facility] [address] [place] [address], [facility] DTL [facility] [place] [address] [place] [address] DHPM [facility] [place] [address] [place] [address] * Soluble Transferrin Receptor (sTfR) (08/05/2023 7:30 PM MOHEL) [facility] Soluble Transferrin Receptor (sTfR) 2.3 1.8 - 4.6 mg/L 08/05/2023 10:54 PM MOHEL DTL Comment: ----ADDITIONAL INFORMATION---- It is reported that Americans may have slightly higher values. Blood (Blood, Venous) 08/05/2023 7:30 PM MOHEL 08/05/2023 10:32 PM MOHEL Lenny Peters M.D. LAB BLOOD ADD-ON Performing Organization Address [facility] Co de Phone Number [facility] [address] [place] [address] * Transfuse Red Blood Cells : (08/05/2023 5:29 PM MOHEL) Megan Frazier P.A.-C., M.S. BLOOD TRA NSFUSION ORDERABLES * Transfuse Red Blood Cells : , 1 Units (08/05/2023 5:29 PM MOHEL) Megan Frazier P.A.-C., M.S. BLOOD TRA NSFUSION ORDERABLES * Bacteria / Nancy Culture, Blood #1 (08/05/2023 3:09 PM MOHEL) Pathologist [facility] Bacteria/Torrie da Culture, Blood No growth after 5 days of incubation. 08/10/2023 4:02 PM MOHEL DTL Blood (Blood, Peripheral Draw) 08/05/2023 3:09 PM MOHEL 08/05/2023 3:19 PM MOHEL Comment:Specimen Source Site : Blood Megan Frazier P.A.-C., M.S. LAB MICRO BIOLOGY - GENERAL ORDERABLES Performing Organization Address [facility] Co de Phone Number [facility] [address] [place], [place] [id number] [place] [address] [address] [place] [address] * CT Chest Angiogram and Pulmonary Arteries with IV Contrast (08/05/2023 2:24 PM MOHEL) Anatomical Region Laterality Modality Chest, Cardiovascular RST LO S, Thoracic ARZ LOS, Thoracic FLA LOS N/A Computed Tomography, Compute d Tomography 08/05/2023 2:18 PM MOHEL Impressions 08/05/2023 2:50 PM MOHEL 1. No acute pulmonary thromboembolism. 2. Findings compatible with pulmonary fibrosis. 3. Similar appearance of lymphomatous infiltration of the duodenum without new acute intra-abdominal abnormality. Narrative 08/05/2023 2:50 PM MOHEL EXAM: ??CT CHEST ANGIOGRAM AND PULMONARY ARTERIES [...] endplates of L2 and L5 are similar [facility]2022 but new since May 11, 2023. IMPRESSION: 1. No acute pulmonary thromboembolism. 2. Findings compatible with pulmonary fibrosis. 3. Similar appearance of lymphomatous infiltration of the duodenum withoutnew acute intra-abdominal abnormality. Megan Lakshmi Freddie Granados M.S. IMG CT PA OCEDURES * CT Abdomen Pelvis with IV Contrast (08/05/2023 2:24 PM MOHEL) Anatomical Region Laterality Modality Abdomen, Pelvis, Abdominal R ST LOS, Abdominal ARZ LOS, Abdominal FLA LOS N/A Computed Tomograp hy, Computed Tomography 08/05/2023 2:19 PM MOHEL Impressions 08/05/2023 2:50 PM MOHEL 1. No acute pulmonary thromboembolism. 2. Findings compatible with pulmonary fibrosis. 3. Similar appearance of lymphomatous infiltration of the duodenum without new acute intra-abdominal abnormality. Narrative 08/05/2023 2:50 PM MOHEL EXAM: ??CT CHEST ANGIOGRAM AND PULMONARY ARTERIES [...] endplates [facility] L[facility] and L5 [facility] new since May 11, 2023. IMPRESSION: 1. No acute pulmonary thromboembolism. 2. Findings compatible with pulmonary fibrosis. 3. Similar appearance of lymphomatous infiltration of the duodenum withoutnew acute intra-abdominal abnormality. Adelaide Austin P.A.-C. IMG CT PROCEDURES * Lactate, POCT (08/05/2023 1:38 PM MOHEL) [facility] Lactate, POCT 0.85 0.50 - 2.20 mmol/L 08/05/2023 4:30 PM MOHEL PCLX Blood (Blood, Venous) 08/05/2023 1:38 PM MOHEL 08/05/2023 1:38 PM MOHEL Megan Frazier P.A.-C., M.S. LAB POCT ORDERABLES - DEVICE POC [facility] [address] [place] [address], [facility] PCLX [facility] POC [address] [place] [address] * Bacteria / Nancy Culture, Blood # 2 (08/05/2023 1:36 PM MOHEL) [facility] Bacteria/Torrie da Culture, Blood No growth after 5 days of incubation. 08/10/2023 2:02 PM MOHEL DTL Blood (Blood, Portacath) 08/05/2023 1:36 PM MOHEL 08/05/2023 1:59 PM MOHEL Comment:Specimen Source Site : Blood Megan Frazier P.A.-C., MJohannaS. LAB MICRO BIOLOGY - GENERAL ORDERABLES Performing Organization Address [facility] de Phone Number [facility] [address] [place] [address], [facility] [address] [place] [address] * (ABNORMAL) Prothrombin Time (PT) (08/05/2023 1:35 PM MOHEL) Pathologist [facility] Prothrombin Time, P 12.8(H) 9.4 - 12.5 sec 08/05/2023 2:01 PM MOHEL STMA INR 1.2 0.9 - 1.1 08/05/2023 2:01 PM [facility] Comment: ----ADDITIONAL INFORMATION---- Standard intensity warfarin therapeutic range: 2.0 to 3.0 ?? High intensity warfarin therapeutic range: 2.5 to 3.5 Blood (Blood, Venous) 08/05/2023 1:35 PM MOHEL 08/05/2023 1:53 PM MOHEL Megan Frazier P.A.-C., M.S. LAB BLOOD ADD-ON Performing Organization Address [facility] Co de Phone Number [facility] [address] [place] [address], [facility] STMA [facility] [place] [address] [place] [address] * (ABNORMAL) Lipase (08/05/2023 1:06 PM MOHEL) Pathologist [facility] Lipase, S 6(L) 13 - 60 U/L 08/05/2023 1: 51 PM MOHEL DTL Blood (Blood, Venous) 08/05/2023 1:06 PM MOHEL 08/05/2023 1:34 PM MOHEL Adelaide Austin P.A.-C. LAB BLOOD ADD-ON Performing Organization Address City/[facility] Co de Phone Number [facility] [address] [place] [address], [facility] [address] [place] [address] * (ABNORMAL) Hepatic Function Panel (08/05/2023 1:06 PM MOHEL) [facility] Bilirubin, Total, S <0.2 0.0 - 1.2 mg/dL 08/05/2023 1:51 PM MOHEL DTL Bilirubin, Direct, S <0.2 0.0 - 0.3 mg/dL 08/05/2023 1:51 PM MOHEL DTL Aspartate Aminotransferase (AST), S 19 8 - 48 U/L 08/05/2023 1:51 PM MOHEL DTL Alanine Aminotransferase (ALT), S 14 7 - 55 U/L 08/05/2023 1:51 PM MOHEL DTL Alkaline Phosphatase, S 92 40 - 129 U/L 08/05/2023 1:51 PM MOHEL DTL Albumin, S 2.9(L) 3.5 - 5.0 g/dL 08/05/2023 2:10 PM MOHEL DTL Protein, Total, S 4.4(L) 6.3 - 7.9 g/dL 08/05/2023 1:51 PM MOHEL DTL Blood (Blood, Venous) 08/05/2023 1:06 PM MOHEL 08/05/2023 1:34 PM MOHEL Adelaide Austin P.A.-C. LAB BLOOD ADD-ON [facility] [address] [place] [address], [facility] [address] [place] [address] * Type and Screen (with Reflex Antibody ID) (08/05/2023 1:06 PM MOHEL) Pathologist [facility] ABORh A Pos Not applicable 08/05/2023 2:29 PM MOHEL STRM Antibody Screen Negative Negative 08/05/2023 2:28 PM MOHEL STRM Type & Screen Expiration 08/08/2023 23:59 08/05/2023 2:28 PM MOHEL STRM Testing Location Lisa DEFAULT 08/05/2023 1:13 PM MOHEL STRM Blood (Blood, Venous) 08/05/2023 1:06 PM MOHEL 08/05/2023 1:13 PM MOHEL Adelaide Austin P.A.-C. LAB BLOOD BANK TEST ORDERABLES [facility] [address] [place] [address], [facility] [address] [place] [address] * (ABNORMAL) CBC with Differential, Blood (08/05/2023 1:06 PM MOHEL) Hemoglobin 6.5(L) 13.2 - 16.6 g/dL 08/05/2023 1:16 PM MOHEL STMA Hematocrit 20.8(L) 38.3 - 48.6 % 08/05/2023 1:16 PM MOHEL STMA Erythrocytes 2.41(L) 4.35 - 5.65 x10(12)/L 08/05/2023 1:16 PM MOHEL STMA MCV 86.3 78.2 - 97.9 fL 08/05/2023 1:16 PM MOHEL STMA RBC Distrib Width 22.1(H) 11.8 - 14.5 % 08/05/2023 1:16 PM MOHEL STMA Platelet Count 99(L) 135 - 317 x10(9)/L 08/05/2023 1:16 PM MOHEL STMA Leukocytes 7.5 3.4 - 9.6 x10(9)/L 08/05/2023 1:16 PM MOHEL STMA Neutrophils 6.64(H) 1.56 - 6.45 x10(9)/L 08/05/2023 1:16 PM MOHEL DH[facility] Lymphocytes 0.21(L) 0.95 - 3.07 x10(9)/L 08/05/2023 1:16 PM MOHEL STMA Monocytes 0.49 0.26 - 0.81 x10(9)/L 08/05/2023 1:16 PM MOHEL STMA Eosinophils 0.10 0.03 - 0.48 x10(9)/L 08/05/2023 1:16 PM MOHEL STMA Basophils 0.04 0.01 - 0.08 x10(9)/L 08/05/2023 1:16 PM MOHEL STMA Blood (Blood, Venous) 08/05/2023 1:06 PM MOHEL 08/05/2023 1:13 PM MOHEL Adelaide Austin P.A.-C. LAB BLOOD ADD-ON [facility] [address] [place] [address], [facility] STMA [facility] [place] [address] [place] [address] [facility] [address] [place] [address] * (ABNORMAL) Basic Metabolic Panel (08/05/2023 1:06 PM MOHEL) Pathologist [facility] Potassium, P 2.6(L) 3.6 - 5.2 mmol/L 08/05/2023 1:30 PM MOHEL STMA Sodium, P 141 135 - 145 mmol/L 08/05/2023 1:30 PM MOHEL STMA Chloride, P 105 98 - 107 mmol/L 08/05/2023 1:30 PM MOHEL STMA Bicarbonate, P 27 22 - 29 mmol/L 08/05/2023 1:30 PM MOHEL STMA Anion Gap, P 9 7 - 15 08/05/2023 1:30 PM MOHEL STMA BUN (Blood Urea Nitrogen), P 11 8 - 24 mg/dL 08/05/2023 1:30 PM MOHEL STMA Creatinine 0.80 0.74 - 1.35 mg/dL 08/05/2023 1:30 PM MOHEL STMA Estimated GFR (eGFR) >90 >=60 mL/min/BSA 08/05/2023 1:30 PM MOHEL STMA Comment: Estimated GFR calculated using the 2020 CKD_EPI creatinine equation. Calcium, Total, P 7.4(L) 8.8 - 10.2 mg/dL 08/05/2023 1:30 PM MOHEL STMA Glucose, P 129 70 - 140 mg/dL 08/05/2023 1:30 PM MOHEL STMA Blood (Blood, Venous) 08/05/2023 1:06 PM MOHEL 08/05/2023 1:14 PM MOHEL Adelaide Austin P.A.-C. LAB BLOOD ADD-ON Performing Organization Address [facility] Co de Phone Number [facility] [address] [place] [address], [facility] STMA [facility] [place] [address] [place] [address] * ECG 12 Lead (08/05/2023 12:31 PM MOHEL) Ventricular Rate ECG/Min 72 BPM MUSE PA Interval 144 ms MUSE QRSD Interval 92 ms MUSE QT Interval 404 ms MUSE QTC Interval 442 ms MUSE P [place] 46 degrees MUSE R [place] 54 degrees MUSE T Wave [place] 40 degrees MUSE 08/05/2023 12:3 1 PM MOHEL 08/05/2023 12:34 PM MOHEL Impressions MUSE - 08/05/2023 12:34 PM MOHEL Normal sinus rhythm Low voltage QRS in limb leads Nonspecific T wave abnormality When compared with ECG of 14-MAY-2023 04:04, Premature atrial complexes are no longer present Reviewed by ISAURO Perez Narrative Procedure Note Parth Stoner Jr., M.D. - 08/05/2023 IMPRESSION: Normal sinus rhythm Low voltage QRS in limb leads Nonspecific T wave abnormality When compared with ECG of 14-MAY-2023 04:04, Premature atrial complexes are no longer present Reviewed by ISAURO Perez Megan Frazier P.A.-C., M.S. 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 Type 2 (HCC) Hypokalemia Thrombocytopenia (HCC) History Of Falling Ischemia Intestinal With Stricture (HCC) documented in this encounter Admitting Diagnoses Diagnosis Hypokalemia Anemia Thrombocytopenia (HCC) History Of Falling documented in this encounter Administered Medications Inactive Administered Medications - up to 3 most recent administrations Medication Order MAR Action Action Date Dose Rate Site allopurinoL tablet 300 mg (ZYLOPRIM) 300 mg, oral, Daily, First dose on Sat08/06/23 at 0900 Given 08/06/2023 8:23 AM MOHEL 300 mg atorvastatin tablet 20 mg (LIPITOR) 20 mg, oral, Daily at bedtime, First dose on Sat08/05/23 at 2100, atorvaSTATin 20 mg oral daily was interchanged for simvastatin 5-40 mg oral daily Given 08/06/2023 8:16 PM MOHEL 20 mg Given 08/05/2023 8:25 PM MOHEL 20 mg D5W infusion 10-250 mL/hr, intravenous, As needed, Medications Incompatible with 0.9% NaCL, Starting on Sat08/07/23 at 1444, Infuse at the same rate as the piggyback until tubing clears or up to a volume of 20 mL pre and post infusion for medications incompatible with 0.9% NaCL. Use 100 mL bag then discard. enoxaparin injection 40 mg (LOVENOX) 40 mg, subcutaneous, Every 24 hours scheduled, First dose on Sat08/05/23 at 1745 Given 08/07/2023 8:54 AM MOHEL 40 mg Left Upper Arm (Back ) Given 08/06/2023 8:23 AM MOHEL 40 mg Le ft Upper Arm (Back) Given 08/05/2023 6:42 PM MOHEL 40 mg Ri ght Upper Arm (Back) heparin flush 500 Units 500 Units, intra-catheter, During hospitalization, line care, Prior to discharge, Starting on Sat08/07/23 at 1444, For 1 dose, Implanted Vascular Access Device (IVAD) Venous Non-Valved: Following saline flush prior to discharge. Given 08/07/2023 2:58 P M MOHEL 500 Units insulin aspart U-100 injection 0-13 Units (NovoLOG FlexPen) 0-13 Units, subcutaneous, 3 times daily, First dose on Sat08/06/23 at 0800, Insulin Scale: Moderate Correction Scale, 140 - 179: 2 units, 180 - 219: 4 units, 220 - 259: 6 units, 260 - 299: 8 units, 300 - 339: 10 units, 340 - 379: 12 units, 380 - 399: 13 units, Greater than 399: Call service writing Insulin orders iopromide 370 mg iodine/mL injection 1-162 mL (ULTRAVIST) 1-162 mL, intravenous, Once in imaging, contrast, Starting on Sat08/05/23 at 1411, For 1 dose, Imaging Protocol Orders, Dose per Radiant Medication Guidelines Given 08/05/2023 2:15 PM MOHEL 140 m L levothyroxine tablet 224 mcg (SYNTHROID, LEVOTHROID) 224 mcg, oral, Daily before breakfast, First dose on Sat08/06/23 at 0700 Given 08/07/2023 6:17 AM MOHEL 224 mcg Given 08/06/2023 6:04 AM MOHEL [address] tablet 128 mg (MAG-DELAY) 128 mg, oral, Daily before breakfast, First dose on Sat08/07/23 at 1445, Swallow whole. Do NOT crush, chew, or split tablet. Given 08/07/2023 3:34 PM MOHEL 128 mg magnesium sulfate in water IVPB 2 g 2 g, intravenous, at 25 mL/hr, Administer over 120 Minutes, Once, On Sat08/06/23 at 1515, For 1 dose New Bag 08/06/2023 3:50 PM MOHEL 2 g 25 mL/hr NaCl 0.9 % bolus 1,000 mL 1,000 mL, intravenous, at 1,000 mL/hr, Administer over 1 Hours, Once, On Sat08/05/23 at 1312, For 1 dose New Bag 08/05/2023 1:49 PM MOHEL 1,000 mL 1000 mL/hr NaCl 0.9% infusion 10-250 mL/hr, intravenous, As needed, Between Consecutive Piggyback Medications, Starting on Sat08/07/23 at 1444, Infuse at the same rate as the piggyback until tubing clears or up to a volume of 20 mL. Select for IV medication administration when no maintenance IV available or when IV medications are not compatible with maintenance fluid. NaCl 0.9% infusion 10-250 mL/hr, intravenous, As needed, Post Medications (Hazardous/Low Fluid Volume), Starting on Sat08/07/23 at 1444, Infuse at the same rate as the medication until tubing cleared of medication, then discard. potassium chloride ER tablet 40 mEq (KLORCON/K-TAB) 40 mEq, oral, Once, On Sat08/05/23 at 1338, For 1 dose, For K<3.3-3.5 mEq/L - give total of 40 mEq Swallow whole. Do NOT crush, chew, or split tablet., Monitor the following for replacement: Potassium, Replace Potassium per: Standard Schedule Given 08/05/2023 1:49 PM MOHEL 40 mEq potassium chloride ER tablet 40 mEq (KLORCON/K-TAB) 40 mEq, oral, Once, On Sat08/05/23 at 1528, For 1 dose, For K<3.3-3.5 mEq/L - give total of 40 mEq Swallow whole. Do NOT crush, chew, or split tablet., Monitor the following for replacement: Potassium, Replace Potassium per: Standard Schedule Given 08/05/2023 4:53 PM MOHEL 40 mEq potassium chloride ER tablet 40 mEq (KLORCON/K-TAB) 40 mEq, oral, Daily with breakfast, First dose on Sat08/06/23 at 0800, Swallow whole. Do NOT crush, chew, or split tablet. Given 08/06/2023 8:23 AM MOHEL 40 mEq potassium chloride ER tablet 60 mEq (KLORCON/K-TAB) 60 mEq, oral, Once, On Sat08/05/23 at 2215, For 1 dose, For K<3 mEq/L - give 60 mEq Swallow whole. Do NOT crush, chew, or split tablet., Monitor the following for replacement: Potassium, Replace Potassium per: Standard Schedule Given 08/05/2023 11:43 PM MOHEL 60 mEq potassium chloride IVPB 10 mEq 10 mEq, intravenous, at 100 mL/hr, Administer over 60 Minutes, Every 1 hour, First dose on Sat08/05/23 at 1337, For 4 doses, For K 3-3.4 mEq/L - give total of 40 mEq, Monitor the following for replacement: Potassium, Replace Potassium per: Standard Schedule New Bag 08/05/2023 3:00 PM MOHEL 10 mEq 100 mL/hr New Bag 08/05/2023 1:54 PM MOHEL 10 mEq 100 mL/hr sodium chloride (PF) 0.9 % injection 1-100 mL 1-100 mL, intravenous, Once, On Sat08/05/23 at 1412, For 1 dose, Imaging Protocol Orders Given 08/05/2023 2:15 PM MOHEL 30 mL sodium chloride 0.9 % injection 10 mL 10 mL, intravenous, As needed, line care, Starting on Sat08/05/23 at 1717, Peripheral Intravenous Catheter and Rapid Infusion Catheter, prior to blood sampling, post blood transfusion or post blood sampling sodium chloride 0.9 % injection 10 mL 10 mL, intravenous, During hospitalization, line care, Prior to discharge, Starting on Sat08/07/23 at 1444, For 1 dose, Implanted Vascular Access Device (IVAD) Venous Non-Valved: Followed by heparin flush prior to discharge. sodium chloride 0.9 % injection 3 mL 3 mL, intravenous, As needed, line care, Starting on Sat08/05/23 at 1717, Prior to and following infusion and between multiple consecutive infusions: sodium chloride 0.9 % injection sodium chloride 0.9 % injection 3 mL 3 mL, intravenous, Every 12 hours scheduled, First dose on Sat08/05/23 at 2100, Peripheral Intravenous Catheter and Rapid Infusion Catheter, when no infusion to maintain patency Given 08/07/2023 8: 54 AM MOHEL 3 mL Given 08/06/2023 8:43 PM MOHEL 3 mL Given 08/06/2023 8:29 AM MOHEL 3 mL documented in this encounter Active and Recently Administered Medications Times are shown in MOHEL. Scheduled Medication Order 08/05/2023 08/06/2023 08/07/2023 allopurinoL tablet 300 mg (ZYLOPRIM) 300 mg, oral, Daily, First dose on Sat08/06/23 at 0900 0823 (Given - Provider: Sol Fields R.N.) 1017 (Not Given - Provider: Carolee Gonzalez R.N. - Reason: NPO - Comment: pt NPO for procedure- decided to decline AM dose) atorvastatin tablet 20 mg (LIPITOR) 20 mg, oral, Daily at bedtime, First dose on Sat08/05/23 at 2100, atorvaSTATin 20 mg oral daily was interchanged for simvastatin 5-40 mg oral daily 2024 (Given - Provider: Arlet Patterson R.N.) 2015 (Given - Provider: Arlet Patterson R.N.) enoxaparin injection 40 mg (LOVENOX) 40 mg, subcutaneous, Every 24 hours scheduled, First dose on Sat08/05/23 at 1745 1842 (Given - Provider: Joby Viera R.N.) 0823 (Given - Provider: Sol Fields R.N.) 0854 (Given - Provider: Carolee Gonzalez R.N.) insulin aspart U-100 injection 0-13 Units (NovoLOG FlexPen) 0-13 Units, subcutaneous, 3 times daily, First dose on Sat08/06/23 at 0800, Insulin Scale: Moderate Correction Scale, 140 - 179: 2 units, 180 - 219: 4 units, 220 - 259: 6 units, 260 - 299: 8 units, 300 - 339: 10 units, 340 - 379: 12 units, 380 - 399: 13 units, Greater than 399: Call service writing Insulin orders 0827 (Not Given - Provider: Slo Fields R.N. - Reason: Order parameters not met - Comment: BG [phone] (Not Given - Provider: Sol Fields RGreg. - Reason: Order parameters not met - Comment: BG [phone] (Not Given - Provider: Dariel Portillo R.N. - Reason: Order parameters not met) 0746 (Not Given - Provider: Carolee Gonzalez RJohannaNJohanna - Reason: Order parameters not met)1153 (Not Given - Provider: Samantha Vargas RJohannaNJohanna - Reason: Order parameters not met) levothyroxine tablet 224 mcg (SYNTHROID, LEVOTHROID) 224 mcg, oral, Daily before breakfast, First dose on Sat08/06/23 at 0700 0604 (Given - Provider: Arlet Patterson R.N.) 0617 (Given - Provider: Arlet Patterson R.N.) magnesium chloride DR tablet 128 mg (MAG-DELAY) 128 mg, oral, Daily before breakfast, First dose on Sat08/07/23 at 1445, Swallow whole. Do NOT crush, chew, or split tablet. 1534 (Given - Provider: Samantha Vargas RJohannaNJohanna) magnesium sulfate in water IVPB 2 g (COMPLETED) 2 g, intravenous, at 25 mL/hr, Administer over 120 Minutes, Once, On Sat08/06/23 at 1515, For 1 dose 1550 (New Bag - Provider: Dariel Portillo R.N.) melatonin tablet 6 mg 6 mg, oral, Daily at bedtime, First dose on Sat08/07/23 at 2100 NaCl 0.9 % bolus 1,000 mL (COMPLETED) 1,000 mL, intravenous, at 1,000 mL/hr, Administer over 1 Hours, Once, On Sat08/05/23 at 1312, For 1 dose 1349 (New Bag - Provider: Ankita Alves R.N.)1518 (Stopped - Provider: Anna Pretty R.N.) potassium chloride ER tablet 40 mEq (KLORCON/K-TAB) (COMPLETED) 40 mEq, oral, Once, On Sat08/05/23 at 1338, For 1 dose, For K<3.3-3.5 mEq/L - give total of 40 mEq Swallow whole. Do NOT crush, chew, or split tablet., Monitor the following for replacement: Potassium, Replace Potassium per: Standard Schedule 1349 (Given - Provider: Ankita Alves R.N.) potassium chloride ER tablet 40 mEq (KLORCON/K-TAB) (COMPLETED) 40 mEq, oral, Once, On Sat08/05/23 at 1528, For 1 dose, For K<3.3-3.5 mEq/L - give total of 40 mEq Swallow whole. Do NOT crush, chew, or split tablet., Monitor the following for replacement: Potassium, Replace Potassium per: Standard Schedule 1653 (Given - Provider: Anna Pretty R.N.) potassium chloride ER tablet 40 mEq (KLORCON/K-TAB) 40 mEq, oral, Daily with breakfast, First dose on Sat08/06/23 at 0800, Swallow whole. Do NOT crush, chew, or split tablet. 0823 (Given - Provider: Sol Fields R.N.) 1018 (Not Given - Provider: Carolee Gonzalez R.N. - Reason: NPO - Comment: NPO for procedure- pt decided to decline AM meds) potassium chloride ER tablet 60 mEq (KLORCON/K-TAB) (COMPLETED) 60 mEq, oral, Once, On Sat08/05/23 at 2215, For 1 dose, For K<3 mEq/L - give 60 mEq Swallow whole. Do NOT crush, chew, or split tablet., Monitor the following for replacement: Potassium, Replace Potassium per: Standard Schedule 2343 (Given - Provider: Arlet Patterson R.N.) potassium chloride IVPB 10 mEq () 10 mEq, intravenous, at 100 mL/hr, Administer over 60 Minutes, Every 1 hour, First dose on Sat08/05/23 at 1337, For 4 doses, For K 3-3.4 mEq/L - give total of 40 mEq, Monitor the following for replacement: Potassium, Replace Potassium per: Standard Schedule 1354 (New Bag - Provider: Ankita Alves RDanuta)1458 (Stopped - Provider: Ricardo Olea R.N.)1500 (New Bag - Provider: Ricardo Olea R.N.)1530 (Not Given - Provider: Anna Pretty R.N. - Reason: Discontinued)1531 (Stopped - Provider: Anna Pretty R.N.)1647 (Not Given - Provider: Anna Pretty R.N. - Reason: Discontinued) sodium chloride (PF) 0.9 % injection 1-100 mL (COMPLETED) 1-100 mL, intravenous, Once, On Sat08/05/23 at 1412, For 1 dose, Imaging Protocol Orders 1415 (Given - Provider: Leighton Gotti RJohannaNJohanna) sodium chloride 0.9 % injection 3 mL 3 mL, intravenous, Every 12 hours scheduled, First dose on Sat08/05/23 at 2100, Peripheral Intravenous Catheter and Rapid Infusion Catheter, when no infusion to maintain patency 2025 (Given - Provider: Arlet Patterson RDanuta) 0829 (Given - Provider: Sol Fields R.N.)2042 (Given - Provider: Arlet Patterson R.N.) 0854 (Given - Provider: Carolee Gonzalez RJohannaNJohanna) PRN Medication Order 08/05/2023 08/06/2023 08/07/2023 acetaminophen tablet 500 mg (TYLENOL) 500 mg, oral, Every 6 hours PRN, mild pain or score 1-3 of 10, moderate pain or score 4-6 of 10, Starting on Sat08/05/23 at 1858 D5W infusion 10-250 mL/hr, intravenous, As needed, Medications Incompatible with 0.9% NaCL, Starting on Sat08/07/23 at 1444, Infuse at the same rate as the piggyback until tubing clears or up to a volume of 20 mL pre and post infusion for medications incompatible with 0.9% NaCL. Use 100 mL bag then discard. heparin flush 500 Units (COMPLETED) 500 Units, intra-catheter, During hospitalization, line care, Prior to discharge, Starting on Sat08/07/23 at 1444, For 1 dose, Implanted Vascular Access Device (IVAD) Venous Non-Valved: Following saline flush prior to discharge. 1458 (Given - Provid er: Abisai Luna R.N.) iopromide 370 mg iodine/mL injection 1-162 mL (ULTRAVIST) (COMPLETED) 1-162 mL, intravenous, Once in imaging, contrast, Starting on Sat08/05/23 at 1411, For 1 dose, Imaging Protocol Orders, Dose per Radiant Medication Guidelines 1415 (Given - Provider: Leighton Gotti RJohannaNJohanna) NaCl 0.9% infusion 10-250 mL/hr, intravenous, As needed, Between Consecutive Piggyback Medications, Starting on Sat08/07/23 at 1444, Infuse at the same rate as the piggyback until tubing clears or up to a volume of 20 mL. Select for IV medication administration when no maintenance IV available or when IV medications are not compatible with maintenance fluid. NaCl 0.9% infusion 10-250 mL/hr, intravenous, As needed, Post Medications (Hazardous/Low Fluid Volume), Starting on Sat08/07/23 at 1444, Infuse at the same rate as the medication until tubing cleared of medication, then discard. ondansetron ODT disintegrating tablet 8 mg (ZOFRAN-ODT) 8 mg, oral, Every 8 hours PRN, nausea, vomiting, Starting on Sat08/05/23 at 1858, When splitting ODT at bedside, handle with gloves and a pill splitter to prevent moisture contact. sodium chloride 0.9 % injection 10 mL 10 mL, intravenous, As needed, line care, Starting on Sat08/05/23 at 1717, Peripheral Intravenous Catheter and Rapid Infusion Catheter, prior to blood sampling, post blood transfusion or post blood sampling sodium chloride 0.9 % injection 10 mL 10 mL, intravenous, During hospitalization, line care, Prior to discharge, Starting on Sat08/07/23 at 1444, For 1 dose, Implanted Vascular Access Device (IVAD) Venous Non-Valved: Followed by heparin flush prior to discharge. sodium chloride 0.9 % injection 3 mL 3 mL, intravenous, As needed, line care, Starting on 08/05/23 at 1717, Prior to and following infusion and between multiple consecutive infusions: sodium chloride 0.9 % injection documented in this encounter Additional Health Concerns Infection Onset Date Last Indicated Resolved Time Protective Environment 05/17/2023 05/17/2023 documented as of this encounter Care Teams Talend Developer Relationship Specialty Start Date End Date Elsewhere, Pcp PCP - General Internal Medicine 05/11/23 09/13/23 documented as of this encounter
--- OUTSIDE RECORDS SUMMARY | 2023-10-05 12:58 | XMS_ITS | Encounter Summary ---
Author Name Unknown Organization [facility] Address [address] [place] [id number] Care Team Providers Care Edging Machine Feeder Name Role Phone Elsewhere, Pcp Primary Care Provider Unavailabl e Reason for Visit * Episode Based Medications (Routine) - Authorized Specialty Diagnoses / Procedures Referred By Contac t Referred To Contact Diagnoses Lymphoma Non Hodgkins (HCC) Procedures X Molly Jarquin M.B.B.S., [address] [place] [phone] [address] Hem [place] [address] [place] [phone] Referral ID Status Reason Start Date Expiration Date V isits Requested Visits Authorized [id number] Authorized 05/17/2023 05/16/2025 99 99 Encounter Details Date Type Department Care Team (Late st Contact Info) Description 08/12/2023 9:30 AM MECHANICAL DESIGN ENGINEER FACILITIES Office Visit Division of Hematology in [place], [place] [address] [place] [phone] Bety Crowell M.D. [address] [place] [address] [phone] Hola Claudio M.D. [address] [place] [phone] Lymphoma Non Hodgkins (HCC) (Primary Dx) Social [...] often do you attend chur ch or temple services? Never 01/10/2023 Do you belong to any clubs o r organizations such as scientology groups, unions, fraternal or athletic groups, or [...] Answer Date Recorded PHQ-2 Score 0 04/25/2020 [facility] - Occupational Stress Questionnaire Answer Date [...] place to sleep or slept in a correction (including now)? No 01/10/2023 Nutrition Answer Date [...] Sign Reading Time Taken Comments Blood Pressure 118/72 08/12/2023 9:08 AM MECHANICAL DESIGN ENGINEER FACILITIES Pulse 79 08/12/2023 9:08 AM MECHANICAL DESIGN ENGINEER FACILITIES Temperature 36.6 ??C (97.9 ??F) 08/12/2023 9:08 AM CS T Respiratory Rate - - Oxygen Saturation - - Inhaled Oxygen Concentration - - Weight 80.1 kg (176 lb 9.4 oz) 08/12/2023 9:08 A M MECHANICAL DESIGN ENGINEER FACILITIES Height 174.3 cm (5' 8.62) 08/12/2023 9:08 AM CS T Body Mass Index 26.37 08/12/2023 9:08 AM MECHANICAL DESIGN ENGINEER FACILITIES documented in this encounter Progress Notes * Hola Claudio M.D. 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 The patient was seen in conjunctionwith Dr. Vitaliy Crowell. Please see his note for further details His PET scan yesterday showed a Deauville score of three. He was recently hospitalized with anemia without obvious blood loss (no nausea vomiting hematemesis black stools etcetera) and received 2 units of blood on the hospital service. He was also profoundly hypomagnesemic for unclear reasons and received magnesium and was given magnesium prescription which he has not yet picked up. Today, he says he is eating and feeling better. His performance status is three. He is able to get to the bathroom with the help of a walker. H is accompanies today and said that he is stable, eating well but quite weak. The patient is known to have a right foot drop and wears an AFO brace-this predated chemotherapy and was due to a previous back surgery. He has no foot drop on the left side. Physical exam The patient is alert and oriented. His speech is normal. He has partial alopecia from chemotherapy.Lymph node exam of the neck axilla and groin was negative lungs were clear heart negative abdomen soft nontender. No palpable mass in the mid abdomen where he had his disease. He has a right foot AFOon and his left foot dorsiflexor is normal. He is able to get in and out of the wheelchair with help. I do not think he could have done it by himself. Deauville score three. His blood counts from today show hemoglobin of 8 six which is rising a whitecount of 9.1 with normal neutrophils. ALC is low at 300 platelet count 304553. Potassium 3.4 magnesium 1.2 (not on the replacement. Albumin 2.9 (improved over 2.6) LDH 188. Oncology History Overview Note May 2023: The patient was feeling unwell with mostly postprandial nausea, vomiting, abdominalpain and inability to tolerate PO intake. Since January 2023, he lost about 40 pounds but denied fever,night sweats or palpable lumps. He was hospitalized during mid April 2023 at [facility] due to his nausea, vomiting and abdominal [...] evidence of cholecystitis. During his hospital stay [facility], he had fevers and low hemoglobin in the 8-9 g per dL range as well as an ROMEO that improved with fluids. An EGD was performed on 04/24/2023 in [facility] which revealed a duodenal necrotizing ulcer which was biopsied, however, that was read as a necroinflammatory ulcer with duodenal mucosa, acute and chronic inflammation without evidence of active malignancy. He was treated with PPI and antibiotics despite no source of infection. He was discharged on 04/27/2023. April 29, 2023: The patient was readmitted after he was seen that morning in [facility] to be hypotensive with a blood pressure of 78/39. He was referred to [facility] ED where he was hypotensive with SBP [...] 2023: The patient was evaluated in the [facility]. A PET CT on 05/10/2023 [...] 2023: The patient was re-evaluated in the [facility]. The patient had no new intervening issues. He noted an upset stomach intermittently. The hemoglobin is 10.4 grams/deciliter, platelet count 167315, and white count 48170. The metabolic panel was unremarkable. Alkaline phosphatase dropped from 157 to 139. The total protein increased from 5.6 to 5.9. There was no palpable lymphadenopathy. The patient was treated with cycle 3. Protonix was ordered. Lymphoma Non Hodgkins (HCC) 05/14/2023 Biopsy/Pathology Lymph [...] hit lymphoma, mesenteric lymph node, performed at [facility] in [place], [place] ([id number]; block A1; 05/17/2023): No rearrangement of MYC, [...] dose reduction; proceed with EGD August 13 The patient is doing well from a tumor standpoint. We do need the EGD tomorrow to make sure that hedoes not have bleeding. We will proceed with cycle five today with a 20% dose reduction; he will need Neulasta tomorrow and can get it here since he is going to be coming anyway for his EGD. 2. Hypomagnesemia-we will represcribe his oral agent as well as give him IV magnesium today 3. Poor performance status related to his chemotherapy and illness. He is quite tenuous. Hopefully he will get through the last two cycles and then will be off to observation. ANICAL DESIGN ENGINEER FACILITIES * Bety Crowell M.D. - 08/12/2023 9:30 AM CST Progress note (08/13/2023) CHIEF COMPLAINT / REASON FOR VISIT DLBCL-NOS HISTORY OF PRESENT ILLNESS Mr. Lau is a 72 yo man who started to feel unwell in summer 2022 with mostly postprandial nausea, vomiting, abdominal pain and inability to tolerate PO intake. Since January 2023 he lost about 40 pounds but denies fever, night sweats or palpable lumps. He was hospitalized during mid April 2023 at [facility] due to his nausea, vomiting and abdominal discomfort and was found tohave sepsis that was initially though to be due to cholecystitis but seems that this was not the case and later felt more likely to be due to duodenal mass causing dilated bile ducts as CT scans showed nonobstructive masslike thickening of the duodenum, predominantly involving the 3rd part of the duodenum with a mildly dilated common bile duct and distended gallbladder, however bedside ultrasounddid not show any overt evidence of cholecystitis. During his hospital stay [facility], he had fevers and low hemoglobin in the 8-9 range as well as an ROMEO that improved with fluids. EGD was performed on 04/24/2023 in [facility] which revealed a duodenal necrotizing ulcer which was biopsies however that was read as a necroinflammatory ulcer with duodenal mucosa, acute and chronic inflammation without evidence of active malignancy. After he was treated with PPI and antibiotics despite no source of infection was identifies; he was discharged on 04/27/2023. He was readmitted on 04/29/2023 after he was seen that morning in [facility] and found to be hypotensive with a blood pressure of 78/39, thus he went to [facility] ED where he was hypotensive with SBPin the 70s but BP correvted by itself later however still received 2 L of IV fluids. 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 Given his nausea, vomiting and PO intolerance; NG tube was placed for tubefeeds. He was discharged home on 05/07/23 with enteral nutrition. We saw him in clinic for the first time on 05/09/2023. We obtained a PET CT on 05/10/2023 with showeda primary duodenal mass but with uptake in several lymph nodes , some are not contiguous with duodenum thus making his him at stage IV. Plan was to repeat biopsy. However , he ended up being hospitalized between 05/11/2023 and 05/23/2023 as he had difficulty tolerating feeds at home and began to experience emesis regardless of the rate or amount of feeds. He presented to the ED where CT imaging reconfirmed an FDG avid mass in the 3rd aspect of the duodenum and s howed a properly placed enteric tube with the tip in the distal jejunum, as well as gastric distention and mild inflammatory stranding involving the duodenum.The patient had his NJ tube replaced witha Dobbhoff with a gastric aspiration port and jejunal extension with 2 L of bilious fluid removed on placement. He has had improved tolerance of tube feeds with gastric aspiration as needed/ During hospiyalization, EGD with duodenal biopsy was [...] On 05/21, NJ tube was removed During hospitalization he received 4 total doses of IV methylprednisolone (05/16- 05/20/2023). Then hewas started on Rituximab on 05/18. The remainder of chemotherapy was started (Preston-CHP) was given on 05/21/2023.. He received appropriate prophylactic medications including pentamidine (05/20), acyclovir, lansoprazole, allopurinol. So far he received 4 cycles of Preston-R-CHP. interim PET scan prior to cycle 3 showed excellent response but there was still a concern of residual focal uptake in the 3rd portion of the duodenal that if this was residual lymphoma will be a Deauville score of 4. Thus we repeated a PET CT scan prior tocycle 5 whlarry showed complete remission Deauville 3. INTERIM EVENTS He was hospitalized between between and Aug 07 2023 for anemia without obvious blood loss and received 2 units of blood. He was also found to have profound hypomagnesemia. Despite, his PET CT is showing CR now after 4 cycles of Preston-R-CHP, he seems to be more weak today with a PS of about 2. He regained his appetite and says that he ate well the last couple of days without issues. PMH: Prior CVA, HTN , HLD, thyroids cancer s/p thyroidectomy, gout PSH: back surgery, bilateral should repair Family history: No family history of lymphoma noted Social history: Quit smoking tobacco in his 40s, no drug or alcohol dependence Oncology History Lymphoma Non Hodgkins (HCC) 05/18/2023 - Chemotherapy Preston-R-CHP Start Date: 05/18/2023 INTERVAL HISTORY Medical History Past Medical History: Diagnosis Date [...] was dueto a previous back surgery. Skin: nonjaundiced Mental: appropriate affect, answers questions appropriately ASSESSMENT [...] to establish diagnosis . PET CT showed howed a primary duodenal mass but with uptake [...] tube was removed. -So far he received 4 cycles of Preston-R-CHP. interim PET scan prior to cycle 3 showed excellent response but there was still a concern of residual focal uptake in the 3rd portion of the duodenal that if this was residual lymphoma will be a Deauville score of 4. Thus we repeated a PET CT scan prior to cycle 5 whish showed complete remission Deauville 3. . Plan: -Proceed with cycle 5 Preston-R-CHP however will reduce with this cycle the dose of cyclophosphamide and doxorubicin by 20 % each for tolerability as his performance status has declined after chemotherapy and is becoming more weak despite his tumor responding well. -He will receive Neulasta the day after treatment. This can be given locally tomorrow since he willbe here for an EGD. -EGD tomorrow given his declining Hb to rule out bleeding. This will provide an assessment responsetoo given his disease is primarily in the duodenum. -We will obtain another PET CT after finishing 6 cycles of treatment. #Anemia #Hypomagnesemia, hypokalemia He was hospitalized between between and Aug 07 2023 for anemia without obvious blood loss and received 2 units of blood. He was also found to have profound hypomagnesemia. Plan: -EGD tomorrow given his declining Hb to rule out bleeding. This will provide an assessment responsetoo given his disease is primarily in the duodenum. -Will give him IV MgSO4 at the infusion unit today. Also sent a prescription of oral magnesium oxide. #History of Rt foot drop wears an AFO brace, this predated chemotherapy and was due to a previous back surgery. Patient seen with Patient seen with ANICAL DESIGN ENGINEER FACILITIES documented in this encounter Miscellaneous Notes * Addendum Note - Bety Crowell M.D. - 08/12/2023 9:30 AM MECHANICAL DESIGN ENGINEER FACILITIES Addended by: BETY CROWELL on: 08/12/2023 11:11 AM Modules accepted: Orders ANICAL DESIGN ENGINEER FACILITIES * Addendum Note - Bety Crowell M.D. - 08/12/2023 9:30 AM MECHANICAL DESIGN ENGINEER FACILITIES Addended by: BETY CROWELL on: 08/13/2023 12:33 AM Modules accepted: Level of Service ANICAL DESIGN ENGINEER FACILITIES documented in this encounter Plan of Treatment Upcoming Encounters Date Type Department Care Team (Latest Contact Info) Description 10/06/2023 9:04 AM MECHANICAL DESIGN ENGINEER FACILITIES - 10/06/2023 11:24 AM MECHANICAL DESIGN ENGINEER FACILITIES Surgery [facility] [address] [place] [phone] Cameron Saenz M.D. [address] [place] [phone] ABDOMINAL EXPLORATION, REMOVAL ABTHERA, POSSBLE BOWEL RESECTION, PROCEED INDICATED 10/11/2023 7:00 AM MECHANICAL DESIGN ENGINEER FACILITIES Appointment Department of Laboratory Medicine and Pathology, [facility] in [place], [place] [address] [place] [phone] Arti Epstein M.B.B.S. [address] [place] [phone] 10/11/2023 9:00 AM MECHANICAL DESIGN ENGINEER FACILITIES Office Visit Division of Hematology in [place], [place] [address] [place] [phone] Arti Epstein M.B.B.S. [address] [place] [phone] 10/11/2023 10:00 AM MECHANICAL DESIGN ENGINEER FACILITIES Infusion Department of Oncology in [place], [place] [address] [place] [phone] Bev Gifford APRN, C.N.P., M.S.N. [address] [place] [phone] 11/19/2023 10:00 AM CDT Office Visit Division of Endocrinology in [place], [place] [address] [place] [phone] West Mendoza APRN, C.N.P., M.S. [address] [place] [phone] 11/19/2023 2:30 PM CDT Comprehensive Visit Division of Hepatobiliary and Pancreas Surgery in [place], [place] [address] [place] [phone] Wesley Hamilton M.D. [address] [place] [phone] Scheduled Procedures Name Priority Associated Diagnoses Date/Ti me LAPAROTOMY - ABDOMINAL WASHOUT Ischemia Intestinal With Stricture (HCC) 10/06/2023 9:04 AM MECHANICAL DESIGN ENGINEER FACILITIES documented as of this encounter Visit Diagnoses Diagnosis Lymphoma Non Hodgkins (HCC)- Primary Ischemia Intestinal With Stricture (HCC) documented in this encounter Additional Health Concerns Infection Onset Date Last Indicated Resolved Time Protective Environment 05/17/2023 05/17/2023 documented as of this encounter Care Teams Edging Machine Feeder Relationship Specialty Start Date End Date Elsewhere, Pcp PCP - General Internal Medicine 05/11/23 09/13/23 documented as of this encounter
--- OUTSIDE RECORDS SUMMARY | 2023-10-05 12:58 | XMS_ITS | Encounter Summary ---
Author Name Unknown Organization [facility] Address [address] [place] [phone] Care Team Providers Care Clerical Order Filler Name Role Phone Elsewhere, Pcp Primary Care Provider Unavailabl e Reason for Referral * MRI/CAT/PET Scan (Routine) - Closed Specialty Diagnoses / Procedures Referred By Doroteo duron Referred To Contact Diagnoses Lymphoma Non Hodgkins (HCC) Procedures PET CT Skull to Thigh FDG Bety Castro M.D. [address] [place] [phone] [facility] Referral ID Status Reason Start Date Expiration Date Visits Re quested Visits Authorized [id number] Closed 07/22/2023 07/21/2024 1 1 RNATIONAL TRAVEL CONSULTANT Reason for Visit * MRI/CAT/PET Scan (Routine) - Closed Specialty Diagnoses / Procedures Referred By Doroteo duron Referred To Contact Diagnoses Lymphoma Non Hodgkins (HCC) Procedures PET CT Skull to Thigh FDG Bety Castro M.D. [address] [place] [phone] [facility] Referral ID Status Reason Start Date Expiration Date Visits Re quested Visits Authorized [id number] Closed 07/22/2023 07/21/2024 1 1 Encounter Details Date Type Department Care Team (Latest Contact Info) Description 08/09/2023 9:43 AM INTERNATIONAL TRAVEL CONSULTANT - 08/09/2023 11:59 PM INTERNATIONAL TRAVEL CONSULTANT Hospital Encounter Department of Radiology, [facility], in [place], [place] 200 [place] [phone] Bety Castro M.D. 200 [place] [address] Lymphoma Non Hodgkins (HCC) Discharge Disposition: Home [...] often do you attend chur ch or pentecostal services? Never 01/10/2023 Do you belong to any clubs o r organizations such as sabianism groups, unions, fraternal or athletic groups, or [...] Answer Date Recorded PHQ-2 Score 0 04/25/2020 [facility] [place] of Occupat ional Health - Occupational Stress [...] (Latest Contact Info) Description 10/06/2023 9:04 AM INTERNATIONAL TRAVEL CONSULTANT - 10/06/2023 11:24 AM INTERNATIONAL TRAVEL CONSULTANT Surgery [facility] ROM[facility] MAIN OR [address] [place] [phone] Cameron Saenz M.D. [address] [place] [phone] ABDOMINAL EXPLORATION, REMOVAL ABTHERA, POSSBLE BOWEL RESECTION, PROCEED INDICATED 10/11/2023 7:00 AM INTERNATIONAL TRAVEL CONSULTANT Appointment Department of Laboratory Medicine and Pathology, [facility] in [place], [place] [address] [place] [phone] Arti Epstein M.B.B.S. [address] [place] [phone] 10/11/2023 9:00 AM INTERNATIONAL TRAVEL CONSULTANT Office Visit Division of Hematology in [place], [place] [address] [place] [phone] Arti Epstein M.B.B.S. [address] [place] [phone] 10/11/2023 10:00 AM INTERNATIONAL TRAVEL CONSULTANT Infusion Department of Oncology in [place], [place] [address] [place] [phone] Bev Gifford APRN, C.N.P., M.S.N. [address] [place] [phone] 11/19/2023 10:00 AM CDT Office Visit Division of Endocrinology in [place], [place] [address] [place] [phone] West Mendoza APRN, C.N.P., M.S. [address] [place] [phone] 11/19/2023 2:30 PM CDT Comprehensive Visit Division of Hepatobiliary and Pancreas Surgery in [place], [place] [address] [place] [phone] Wesley Hamilton M.D. [address] [place] [phone] Scheduled Procedures Name Priority Associated Diagnoses Date/Ti me LAPAROTOMY - ABDOMINAL WASHOUT Ischemia Intestinal With Stricture (HCC) 10/06/2023 9:04 AM INTERNATIONAL TRAVEL CONSULTANT documented as of this encounter Procedures Procedure Name Priority Date/Time Associated Diagnosis Comments PET CT SKULL TO THIGH RAD - Routine (most inpatients and all outpatients) 08/09/2023 1:20 PM INTERNATIONAL TRAVEL CONSULTANT Lymphoma Non Hodgkins (HCC) documented in this encounter Results * PET CT Skull to Thigh FDG (08/09/2023 1:20 PM INTERNATIONAL TRAVEL CONSULTANT) Anatomical Region Laterality Modality Body, Nuclear Medicine PET R ST LOS, PET ARZ LOS, Nuclear Medicine PET FLA LOS, Nuclear Medicine N/A Positron Emission Tomography (PET), Positron Emission Tomography (PET) 08/09/2023 2:43 PM INTERNATIONAL TRAVEL CONSULTANT Impressions 08/09/2023 3:08 PM INTERNATIONAL TRAVEL CONSULTANT 1. Further decrease in FDG uptake involving/adjacent to the 3rd portion of the duodenum. [place] response criteria= 3 2. FDG uptake of the colon and gallbladder may be related to inflammation. 3. Slight interval increase in small bilateral pleural effusions. Narrative 08/09/2023 3:08 PM INTERNATIONAL TRAVEL CONSULTANT EXAM: ??PET CT SKULL TO THIGH FDG Serum glucose at time of F-18 FDG injection was 69 mg/dL. Patient followed standard dietary/fasting requirements for this exam. RADIOPHARMACEUTICAL/MEDS: Route: intravenous fludeoxyglucose F 18 injection LONG-TERM (FDG F-18),10.12 millicurie TECHNIQUE: ??F-18 FDG PET/CT [...] RADIOPHARMACEUTICAL/MEDS: Route: intravenous fludeoxyglucose F 18 injection LONG-TERM (FDG F-18),10.12 millicurie TECHNIQUE: F-18 FDG PET/CT [...] increase in small bilateral pleural effusions. 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) documented in this encounter Administered Medications Inactive Administered Medications - up to 3 most recent administrations Medication Order MAR Action Action Date Dose Rate Site fludeoxyglucose F 18 injection LONG-TERM (FDG F-18) 4.5-16.5 millicurie, intravenous, Once, On Sat08/09/23 at 1215, For 1 dose, Imaging Protocol Orders Given 08/09/2023 11:39 AM INTERNATIONAL TRAVEL CONSULTANT 10.12 millicuries Port documented in this encounter Additional Health Concerns Infection Onset Date Last Indicated Resolved Time Protective Environment 05/17/2023 05/17/2023 documented as of this encounter Care Teams Clerical Order Filler Relationship Specialty Start Date End Date Elsewhere, Pcp PCP - General Internal Medicine 05/11/23 09/13/23 documented as of this encounter
--- OUTSIDE RECORDS SUMMARY | 2023-10-05 12:59 | XMS_ITS | Encounter Summary ---
Author Name Unknown Organization [facility] Address [address] [place] [address] Care Team Providers Care Carver And Checkerer Specials Name Role Phone Elsewhere, Pcp Primary Care Provider Unavailabl e Encounter Details Date Type Department Care Team (Late st Contact Info) Description 08/05/2023 5:40 PM FINANCIAL INSTITUTION BRANCH MANAGER Ancillary Procedure Department of Nursing Social History [...] any clubs o r organizations such as baptism groups, unions, fraternal or athletic groups, or [...] [facility] of Occupat ional Health - [...] place to sleep or slept in a detention (including now)? No 01/10/2023 Nutrition Answer Date [...] (Latest Contact Info) Description 10/06/2023 9:04 AM FINANCIAL INSTITUTION BRANCH MANAGER - 10/06/2023 11:24 AM FINANCIAL INSTITUTION BRANCH MANAGER Surgery [facility] ROM[facility] MAIN OR [address] [place] [phone] Cameron Saenz M.D. [address] [place] [phone] ABDOMINAL EXPLORATION, REMOVAL ABTHERA, POSSBLE BOWEL RESECTION, PROCEED INDICATED 10/11/2023 7:00 AM FINANCIAL INSTITUTION BRANCH MANAGER Appointment Department of Laboratory Medicine and Pathology, [facility], in [place], [place] [address] [place] [phone] Arti Epstein M.B.B.S. [address] [place] [phone] 10/11/2023 9:00 AM FINANCIAL INSTITUTION BRANCH MANAGER Office Visit Division of Hematology in [place], [place] [address] [place] [phone] Arti Epstein M.B.B.S. [address] [place] [phone] 10/11/2023 10:00 AM FINANCIAL INSTITUTION BRANCH MANAGER Infusion Department of Oncology in [address] [phone] Bev Gifford APRN, C.N.P., M.S.N. [address] [place] [phone] 11/19/2023 10:00 AM CDT Office Visit Division of Endocrinology in [place], [place] [address] [place] [phone] West Mendoza APRN, C.N.P., M.S. [address] [place] [phone] 11/19/2023 2:30 PM CDT Comprehensive Visit Division of Hepatobiliary and Pancreas Surgery in [address] [phone] Wesley Hamilton M.D. [address] [place] [phone] Scheduled Procedures Name Priority Associated Diagnoses Date/Ti me LAPAROTOMY - ABDOMINAL WASHOUT Ischemia Intestinal With Stricture (HCC) 10/06/2023 9:04 AM FINANCIAL INSTITUTION BRANCH MANAGER documented as of this encounter Procedures Procedure Name Priority Date/Time Associated Diagnosis Comments NURSING IMAGE EXAM Routine 08/05/2023 5: 38 PM FINANCIAL INSTITUTION BRANCH MANAGER documented in this encounter Results * Foot, Right-Nursing Image Exam (08/05/2023 5:38 PM FINANCIAL INSTITUTION BRANCH MANAGER) 08/05/2023 5:36 PM FINANCIAL INSTITUTION BRANCH MANAGER Narrative IIMS - 08/05/2023 5:38 PM FINANCIAL INSTITUTION BRANCH MANAGER This order has been created and auto-finalized [...] documented as of this encounter Care Teams Carver And Checkerer Specials Relationship Specialty Start Date End Date Elsewhere, Pcp PCP - General Internal Medicine 05/11/23 09/13/23 documented as of this encounter
--- OUTSIDE RECORDS SUMMARY | 2023-10-05 12:59 | XMS_ITS | Encounter Summary ---
Author Name Unknown Organization [facility] Address [address] [place] [address] Care Team Providers Care Planer Hand Name Role Phone Elsewhere, Pcp Primary Care Provider Unavailabl e Encounter Details Date Type Department Care Team (Late st Contact Info) Description 08/05/2023 5:45 PM BANBURY OPERATOR Ancillary Procedure Department of Nursing Social History [...] often do you attend chur ch or restoration services? Never 01/10/2023 Do you belong to any clubs o r organizations such as buddhism groups, unions, fraternal or athletic groups, or [...] (Latest Contact Info) Description 10/06/2023 9:04 AM BANBURY OPERATOR - 10/06/2023 11:24 AM BANBURY OPERATOR Surgery [facility] MAIN OR [address] [place] [phone] Cameron Saenz M.D. [address] [place] [phone] ABDOMINAL EXPLORATION, REMOVAL ABTHERA, POSSBLE BOWEL RESECTION, PROCEED INDICATED 10/11/2023 7:00 AM BANBURY OPERATOR Appointment Department of Laboratory Medicine and Pathology, [facility], in [place], [place] [address] [place] [phone] Arti Epstein M.B.B.S. [address] [place] [phone] 10/11/2023 9:00 AM BANBURY OPERATOR Office Visit Division of Hematology in [place], [place] [address] [place] [phone] Arti Epstein M.B.B.S. [address] [place] [phone] 10/11/2023 10:00 AM BANBURY OPERATOR Infusion Department of Oncology in [address] [phone] Bev Gifford APRN, C.N.P., M.S.N. [address] [place] [phone] 11/19/2023 10:00 AM CDT Office Visit Division of Endocrinology in [place], [place] [address] [place] [phone] West Mendoza APRN, C.N.P., M.S. [address] [place] [phone] 11/19/2023 2:30 PM CDT Comprehensive Visit Division of Hepatobiliary and Pancreas Surgery in [address] [phone] Wesley Hamilton M.D. [address] [place] [phone] Scheduled Procedures Name Priority Associated Diagnoses Date/Ti me LAPAROTOMY - ABDOMINAL WASHOUT Ischemia Intestinal With Stricture (HCC) 10/06/2023 9:04 AM BANBURY OPERATOR documented as of this encounter Procedures Procedure Name Priority Date/Time Associated Diagnosis Comments NURSING IMAGE EXAM Routine 08/05/2023 5: 38 PM BANBURY OPERATOR documented in this encounter Results * Leg, left-Nursing Image Exam (08/05/2023 5:38 PM BANBURY OPERATOR) 08/05/2023 5:36 PM BANBURY OPERATOR Narrative IIMS - 08/05/2023 5:38 PM BANBURY OPERATOR This order has been created and auto-finalized [...] documented as of this encounter Care Teams Planer Hand Relationship Specialty Start Date End Date Elsewhere, Pcp PCP - General Internal Medicine 05/11/23 09/13/23 documented as of this encounter
--- OUTSIDE RECORDS SUMMARY | 2023-10-05 12:59 | XMS_ITS | Encounter Summary ---
Author Name Unknown Organization [facility] Address [address] [place] [address] Care Team Providers Care Paper Ruler Name Role Phone Elsewhere, Pcp Primary Care Provider Unavailabl e Reason for Visit * Reason Onset Date Comments EST Lymphoma 07/29/2023 Encounter Details Date Type Department Care Team (Late st Contact Info) Description 07/29/2023 Clinical Communication Division of Hematology in [place], [place] [address] [place] [phone] Garcia Flores M.D., Ph.D. [address] [place] [phone] EST Lymphoma Social History Tobacco Use Types Packs/Day Years Used Date Smoking Tobacco: Former Cigarettes 1 22 Q uit: 02/07/1989 Passive Smoke Exposure: Never Smokeless Tobacco: Former Snuff Quit: 04/18/2023 Alcohol Use Standard Drinks/Week Comments Yes 3 (1 standard drink = 0.6 oz [...] How often do you attend chur or mormonism services? Never 01/10/2023 Do you belong to [...] Answer Date Recorded PHQ-2 Score 0 04/25/2020 [facility] of Occupat ional Health - Occupational [...] (Latest Contact Info) Description 10/06/2023 9:04 AM TANK PROCESSOR - 10/06/2023 11:24 AM TANK PROCESSOR Surgery [facility]ST ROM[facility] MAIN OR [address] [place] [phone] Cameron Saenz M.D. [address] [place] [phone] ABDOMINAL EXPLORATION, REMOVAL ABTHERA, POSSBLE BOWEL RESECTION, PROCEED INDICATED 10/11/2023 7:00 AM TANK PROCESSOR Appointment Department of Laboratory Medicine and Pathology, [facility], in [place], [place] [address] [place] [phone] Arti Epstein M.B.B.S. [address] [place] [phone] 10/11/2023 9:00 AM TANK PROCESSOR Office Visit Division of Hematology in [place], [place] [address] [place] [phone] Arti Epstein M.B.B.S. [address] [place] [phone] 10/11/2023 10:00 AM TANK PROCESSOR Infusion Department of Oncology in [place], [place] [address] [place] [phone] Bev Gifford APRN, C.N.P., M.S.N. [address] [place] [phone] 11/19/2023 10:00 AM CDT Office Visit Division of Endocrinology in [place], [place] [address] [place] [phone] West Mendoza APRN, C.N.P., M.S. [address] [place] [phone] 11/19/2023 2:30 PM CDT Comprehensive Visit Division of Hepatobiliary and Pancreas Surgery in [place], [place] [address] [place] [phone] Wesley Hamilton M.D. [address] [place] [phone] Scheduled Procedures Name Priority Associated Diagnoses Date/Ti me LAPAROTOMY - ABDOMINAL WASHOUT Ischemia Intestinal With Stricture (HCC) 10/06/2023 9:04 AM TANK PROCESSOR documented as of this encounter Visit Diagnoses Not on filedocumented in this encounter Additional Health Concerns Infection Onset Date Last Indicated Resolved Time Protective Environment 05/17/2023 05/17/2023 documented as of this encounter Care Teams Paper Ruler Relationship Specialty Start Date End Date Elsewhere, Pcp PCP - General Internal Medicine 05/11/23 09/13/23 documented as of this encounter
--- OUTSIDE RECORDS SUMMARY | 2023-10-05 12:59 | XMS_ITS | Encounter Summary ---
Author Name Unknown Organization [facility] Address [address] [place] [address] Care Team Providers Care Control Panel Assembler Name Role Phone Elsewhere, Pcp Primary Care Provider Unavailabl e Reason for Referral * Outpatient (Routine) Specialty Diagnoses / Procedures Referred By Doroteo t Referred To Contact Hematology Oncology Bety Castro M.D. [address] [place] [phone] [facility] Referral ID Status Reason Start Date Expiration Date Visits Re quested Visits Authorized TOR SERVICE OPERATOR Reason for Visit * Reason Onset Date Comments External Lab Entry 07/29/2023 Encounter Details Date Type Department Care Team (Latest Contact Info) Description 07/29/2023 Clinical Communication Division of Hematology in [place], [place] [address] [place] [phone] Bety Castro M.D. [address] [place] [phone] External Lab Entry Social History Tobacco Use Types Packs/Day Years [...] week 01/10/2023 How often do you attend [facility] or bahai services? Never 01/10/2023 Do you belong to any clubs o r organizations such as judaism groups, unions, fraternal or athletic groups, or [...] Answer Date Recorded PHQ-2 Score 0 04/25/2020 [facility] of Occupat ional Health - [...] encounter Miscellaneous Notes * Telephone Encounter - Marisol Gomez R.N., O.C.N. 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 These labs have been scanned in chart. 07/29/23 09:30 EXT Hemoglobin 7.8 (E) EXT Hematocrit 24.8 (E) EXT Platelet Count 215 (E) EXT WBC 2.36 (E) EXT Lymphs Absolute 0.10 (E) EXT Absolute Neutrophil Count 2.0 (E) (E): External lab result Phoned patient with labs. He reports feeling well and denies any SOBOE or dizziness or lightheadedness with Hgb 7.8. He does take an occasional nap after eating but this is not new. Patient reports appetite and bowels are working normally. He will recheck labs again Saturday. Patient did ask we place orders for cycle 6 of chemo as this will fall the week of . Orders placed. PLAN Disposition/Recommendation: self-care is appropriate at this time, patient encouraged to call back with questions. Information/Education: patient/caller able to teach back. Caller agreeable to plan of care: yes. The following references were used: nursing clinical judgement. TOR SERVICE OPERATOR * Telephone Encounter - Kayla Mcmahon Miguel - 07/29/2023 12:10 PM CST Outside labs collected on 07/29/2023 have been received. The fax has been scanned into the patient record via [employer], and the CBC results are as noted below. Hemoglobin: 7.8 Hematocrit: 24.8 WBC: 2.36 ANC: 2.0 Platelets: 215 Please note: Are there additional labs reported on the outside report? No TOR SERVICE OPERATOR documented in this encounter Plan of Treatment Upcoming Encounters Date Type Department Care Team (Latest Contact Info) Description 10/06/2023 9:04 AM REACTOR SERVICE OPERATOR - 10/06/2023 11:24 AM REACTOR SERVICE OPERATOR Surgery [facility]ST ROM[facility] MAIN OR [address] [place] [phone] Cameron Saenz M.D. [address] [place] [phone] ABDOMINAL EXPLORATION, REMOVAL ABTHERA, POSSBLE BOWEL RESECTION, PROCEED INDICATED 10/11/2023 7:00 AM REACTOR SERVICE OPERATOR Appointment Department of Laboratory Medicine and Pathology, [facility], in [place], [place] [address] [place] [phone] Arti Epstein M.B.B.S. [address] [place] [phone] 10/11/2023 9:00 AM REACTOR SERVICE OPERATOR Office Visit Division of Hematology in [address] [phone] Arti Epstein M.B.B.S. [address] [place] [phone] 10/11/2023 10:00 AM REACTOR SERVICE OPERATOR Infusion Department of Oncology in [address] [phone] Bev Gifford APRN, C.N.P., M.S.N. [address] [place] [phone] 11/19/2023 10:00 AM CDT Office Visit Division of Endocrinology in [place], [place] [address] [place] [phone] West Mendoza APRN, C.NJohannaP., M.S. [address] [place] [phone] 11/19/2023 2:30 PM CDT Comprehensive Visit Division of Hepatobiliary and Pancreas Surgery in [place], [place] [address] [place] [phone] Wesley Hamilton M.D. [address] [place] [phone] Scheduled Procedures Name Priority Associated Diagnoses Date/Ti me LAPAROTOMY - ABDOMINAL WASHOUT Ischemia Intestinal With Stricture (HCC) 10/06/2023 9:04 AM REACTOR SERVICE OPERATOR Scheduled Referrals Name Type Priority Associated Diagnoses Order Schedule Hematology office visit (clinic) [place]; Lymphoma; Pre-Chemo Outpatient Referral Routine Lymphoma Non Hodgkins (HCC) Expected: 09/02/2023, Expires: 09/02/2024 documented as of this encounter Procedures Procedure Name Priority Date/Time Associated Diagnosis Comments HEMATOLOGY/ONCOLOGY - BLOOD, EXTERNAL LAB RESULTS Routine 07/29/2023 9:30 AM REACTOR SERVICE OPERATOR documented in this encounter Results * (ABNORMAL) CBC with Differential, Blood (09/04/2023 10:14 AM REACTOR SERVICE OPERATOR) Hemoglobin 7.2(L) 13.2 - 16.6 g/dL 09/04/2023 10:36 AM REACTOR SERVICE OPERATOR DTL Hematocrit 22.7(L) 38.3 - 48.6 % 09/04/2023 10:36 AM REACTOR SERVICE OPERATOR DTL Erythrocytes 2.39(L) 4.35 - 5.65 x10(12)/L 09/04/2023 10:36 AM REACTOR SERVICE OPERATOR DTL MCV 95.0 78.2 - 97.9 fL 09/04/2023 10:36 AM REACTOR SERVICE OPERATOR DTL RBC Distrib Width 20.5(H) 11.8 - 14.5 % 09/04/2023 10:36 AM REACTOR SERVICE OPERATOR DTL Platelet Count 222 135 - 317 x10(9)/L 09/04/2023 10:36 AM REACTOR SERVICE OPERATOR DTL Leukocytes 8.1 3.4 - 9.6 x10(9)/L 09/04/2023 10:36 AM REACTOR SERVICE OPERATOR DTL Neutrophils 7.03(H) 1.56 - 6.45 x10(9)/L 09/04/2023 10:36 AM REACTOR SERVICE OPERATOR DHPM Lymphocytes 0.30(L) 0.95 - 3.07 x10(9)/L 09/04/2023 10:36 AM REACTOR SERVICE OPERATOR DTL Monocytes 0.57 0.26 - 0.81 x10(9)/L 09/04/2023 10:36 AM REACTOR SERVICE OPERATOR DTL Eosinophils 0.13 0.03 - 0.48 x10(9)/L 09/04/2023 10:36 AM REACTOR SERVICE OPERATOR DTL Basophils 0.05 0.01 - 0.08 x10(9)/L 09/04/2023 10:36 AM REACTOR SERVICE OPERATOR DTL Blood (Blood, Venous) 09/04/2023 10:14 AM REACTOR SERVICE OPERATOR 09/04/2023 10:26 AM REACTOR SERVICE OPERATOR Garcia Flores M.D., Ph.D. LAB BLOOD A DD-ON [facility] 200 [place] [address], [facility] D[facility] [address] 200 [place] [address] * (ABNORMAL) Comprehensive Metabolic Panel (09/04/2023 10:13 AM REACTOR SERVICE OPERATOR) [facility] Potassium, S 3.5(L) 3.6 - 5.2 mmol/L 09/04/2023 11:01 AM REACTOR SERVICE OPERATOR DTL Sodium, S 138 135 - 145 mmol/L 09/04/2023 11:01 AM REACTOR SERVICE OPERATOR DTL Chloride, S 104 98 - 107 mmol/L 09/04/2023 11:01 AM REACTOR SERVICE OPERATOR DTL Bicarbonate, S 26 22 - 29 mmol/L 09/04/2023 11:01 AM REACTOR SERVICE OPERATOR DTL Anion Gap 8 7 - 15 09/04/2023 11:01 AM REACTOR SERVICE OPERATOR DTL BUN (Blood Urea Nitrogen), S 17 8 - 24 mg/dL 09/04/2023 11:01 AM REACTOR SERVICE OPERATOR DTL Creatinine 0.75 0.74 - 1.35 mg/dL 09/04/2023 11:01 AM REACTOR SERVICE OPERATOR DTL Estimated GFR (eGFR) >90 >=60 mL/min/BS A 09/04/2023 11:01 AM REACTOR SERVICE OPERATOR DTL Comment: Estimated GFR calculated using the 2020 CKD_EPI creatinine equation. Calcium, Total, S 7.9(L) 8.8 - 10.2 mg/dL 09/04/2023 11:01 AM REACTOR SERVICE OPERATOR DTL Glucose, S 90 70 - 140 mg/dL 09/04/2023 11:01 AM REACTOR SERVICE OPERATOR DTL Protein, Total, S 4.7(L) 6.3 - 7.9 g/dL 09/04/2023 11:01 AM REACTOR SERVICE OPERATOR DTL Albumin, S 3.1(L) 3.5 - 5.0 g/dL 09/04/2023 11:01 AM REACTOR SERVICE OPERATOR DTL Aspartate Aminotransferase (AST), S 29 8 - 48 U/L 09/04/2023 11:01 AM REACTOR SERVICE OPERATOR DTL Alkaline Phosphatase, S 173(H) 40 - 129 U/L 09/04/2023 11:01 AM REACTOR SERVICE OPERATOR DTL Alanine Aminotransferase (ALT), S 18 7 - 55 U/L 09/04/2023 11:01 AM REACTOR SERVICE OPERATOR DTL Bilirubin, Total, S 0.3 0.0 - 1.2 mg/dL 09/04/2023 11:01 AM REACTOR SERVICE OPERATOR DTL Blood (Blood, Venous) 09/04/2023 10:13 AM REACTOR SERVICE OPERATOR 09/04/2023 10:39 AM REACTOR SERVICE OPERATOR Garcia Flores M.D., Ph.D. LAB BLOOD A DD-ON [facility] [address] [place] [address], [facility] D[facility] [address] [place] [address] * Hematology/Oncology - Blood, External Lab Results (07/29/2023 9:30 AM REACTOR SERVICE OPERATOR) EXT Hemoglobin 7.8 SCANNED REPORT EXT Hematocrit 24.8 SCANNED REPORT EXT Leukocytes 2.36 SCANNED REPORT EXT Absolute Neutrophil Count 2.0 SCANNED REPORT EXT Lymphs Absolute 0.10 SCANNED REPORT EXT Platelet Count 215 SCANNED REPORT Blood 07/29/2023 9:30 AM REACTOR SERVICE OPERATOR Historical Provider LAB BLOOD NON ADD-ON SCANNED REPORT documented in this encounter Visit Diagnoses Diagnosis 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
--- OUTSIDE RECORDS SUMMARY | 2023-10-05 12:59 | XMS_ITS | Encounter Summary ---
Author Name Unknown Organization [facility] Address [address] [place] [address] Care Team Providers Care Lens Blocker Name Role Phone Elsewhere, Pcp Primary Care Provider Unavailabl e Reason for Visit * Reason Comments Injections Fulphilia * Episode Based Medications (Routine) - Authorized Specialty Diagnoses / Procedures Referred By Doroteo t Referred To Contact Diagnoses Lymphoma Non Hodgkins (HCC) Procedures X Molly Jarquin M.B.BJohannaSJohanna, MBeny [address] [place] [phone] R[address] Hem [place] [address] [place] [phone] Referral ID Status Reason Start Date Expiration Date V isits Requested Visits Authorized [id number] Authorized 05/17/2023 05/16/2025 99 99 Encounter Details Date Type Department Care Team (Late st Contact Info) Description 07/24/2023 2:45 PM BELT TURNER Infusion Department of Infusion Therapy in [address] [phone] Bety Castro M.D. [address] [place] [phone] Lymphoma Non Hodgkins (HCC) (Primary Dx) Social [...] often do you attend chur ch or denominational services? Never 01/10/2023 Do you belong to any clubs o r organizations such as islam groups, unions, fraternal or athletic groups, or [...] Answer Date Recorded PHQ-2 Score 0 04/25/2020 [facility] [place] of Occupat ional [facility] - Occupational Stress Questionnaire Answer Date [...] place to sleep or slept in a care home (including now)? No 01/10/2023 Nutrition Answer Date [...] Sign Reading Time Taken Comments Blood Pressure 106/43 07/24/2023 3:06 PM BELT TURNER Pulse 58 07/24/2023 3:06 PM BELT TURNER Temperature 35.9 ??C (96.6 ??F) 07/24/2023 3:06 PM CS T Respiratory Rate 16 07/24/2023 3:06 PM BELT TURNER Oxygen Saturation 93% 07/24/2023 3:06 PM BELT TURNER Inhaled Oxygen Concentration - - Weight - - Height - - Body Mass Index - - documented in this encounter Plan of Treatment Upcoming Encounters Date Type Department Care Team (Latest Contact Info) Description 10/06/2023 9:04 AM BELT TURNER - 10/06/2023 11:24 AM BELT TURNER Surgery [facility] MAIN OR [address] [place] [phone] Cameron Saenz M.D. [address] [place] [phone] ABDOMINAL EXPLORATION, REMOVAL ABTHERA, POSSBLE BOWEL RESECTION, PROCEED INDICATED 10/11/2023 7:00 AM BELT TURNER Appointment Department of Laboratory Medicine and Pathology, [facility], in [place], [place] [address] [place] [phone] Arti Epstein M.B.B.S. [address] [place] [phone] 10/11/2023 9:00 AM BELT TURNER Office Visit Division of Hematology in [place], [place] [address] [place] [phone] Arti Epstein M.B.B.S. [address] [place] [phone] 10/11/2023 10:00 AM BELT TURNER Infusion Department of Oncology in [place], [place] [address] [place] [phone] Bev Gifford APRN, C.N.P., M.S.N. [address] [place] [phone] 11/19/2023 10:00 AM CDT Office Visit Division of Endocrinology in [place], [place] [address] [place] [phone] West Mendoza APRN, C.N.P., M.S. [address] [place] [phone] 11/19/2023 2:30 PM CDT Comprehensive Visit Division of Hepatobiliary and Pancreas Surgery in [place], [place] [address] [place] [phone] Wesley Hamilton M.D. 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) documented in this encounter Administered Medications Inactive Administered Medications - up to 3 most recent administrations Medication Order MAR Action Action Date Dose Rate Site pegfilgrastim-jmdb injection 6 mg (FULPHILA) 6 mg, subcutaneous, Once, On Sat07/24/23 at 1500, For 1 dose Given 07/24/2023 3:01 PM BELT TURNER 6 mg Left Upper Abdomen documented in this encounter Additional Health Concerns Infection Onset Date Last Indicated Resolved Time Protective Environment 05/17/2023 05/17/2023 documented as of this encounter Care Teams Lens Blocker Relationship Specialty Start Date End Date Elsewhere, Pcp PCP - General Internal Medicine 05/11/23 09/13/23 documented as of this encounter
--- OUTSIDE RECORDS SUMMARY | 2023-10-05 12:59 | XMS_ITS | Encounter Summary ---
Author Name Unknown Organization [facility] Address [address] [place] [address] Care Team Providers Care Equipment Service Lead Name Role Phone Elsewhere, Pcp Primary Care Provider Unavailabl e Encounter Details Date Type Department Care Team (Latest Contact Info) Description 08/05/2023 Intake [facility] Social History Tobacco Use Types Packs/Day Years [...] often do you attend chur ch or taoist services? Never 01/10/2023 Do you belong to [...] Answer Date Recorded PHQ-2 Score 0 04/25/2020 [facility] [place] of Occupat ional Health - Occupational Stress [...] medical appointments or from getting medications? No 050 12/2022 In the past 12 months, has [...] place to sleep or slept in a mcfp (including now)? No 01/10/2023 Nutrition Answer Date [...] (Latest Contact Info) Description 10/06/2023 9:04 AM SPRAY STAINER - 10/06/2023 11:24 AM SPRAY STAINER Surgery [facility] MAIN OR [address] [place] [phone] Cameron Saenz M.D. [address] [place] [phone] ABDOMINAL EXPLORATION, REMOVAL ABTHERA, POSSBLE BOWEL RESECTION, PROCEED INDICATED 10/11/2023 7:00 AM SPRAY STAINER Appointment Department of Laboratory Medicine and Pathology, [facility], in [place], [place] [address] [place] [phone] Arti Epstein M.B.B.S. [address] [place] [phone] 10/11/2023 9:00 AM SPRAY STAINER Office Visit Division of Hematology in [place], [place] [address] [place] [phone] Arti Epstein M.B.B.S. [address] [place] [phone] 10/11/2023 10:00 AM SPRAY STAINER Infusion Department of Oncology in [address] [phone] Bev Gifford APRN, C.N.P., M.S.N. [address] [place] [phone] 11/19/2023 10:00 AM CDT Office Visit Division of Endocrinology in [place], [place] [address] [place] [phone] West Mendoza APRN, C.N.P., M.S. [address] [place] [phone] 11/19/2023 2:30 PM CDT Comprehensive Visit Division of Hepatobiliary and Pancreas Surgery in [address] [phone] Wesley Hamilton M.D. [address] [place] [phone] Scheduled Procedures Name Priority Associated Diagnoses Date/Ti me LAPAROTOMY - ABDOMINAL WASHOUT Ischemia Intestinal With Stricture (HCC) 10/06/2023 9:04 AM SPRAY STAINER documented as of this encounter Visit Diagnoses Not on filedocumented in this encounter Additional Health Concerns Infection Onset Date Last Indicated Resolved Time Protective Environment 05/17/2023 05/17/2023 COVID19 Pending 09/14/2023 09/14/2023 09/14/2023 8 :59 PM SPRAY STAINER documented as of this encounter Care Teams Equipment Service Lead Relationship Specialty Start Date End Date Elsewhere, Pcp PCP - General Internal Medicine 09/14/23 documented as of this encounter
--- OUTSIDE RECORDS SUMMARY | 2023-10-05 12:59 | XMS_ITS | Encounter Summary ---
Author Name Unknown Organization [facility] Address [address] [place] [id number] Care Team Providers Care Vp Director Of Finance Name Role Phone Elsewhere, Pcp Primary Care Provider Unavailabl e Reason for Visit * Episode Based Medications (Routine) - Authorized Specialty Diagnoses / Procedures Referred By Contac t Referred To Contact Diagnoses Lymphoma Non Hodgkins (HCC) Procedures X Molly Jarquin M.B.BTami, Tani [address] [place] [address] [address] [place] [address] [place] [phone] Referral ID Status Reason Start Date Expiration Date V isits Requested Visits Authorized [id number] Authorized 05/17/2023 05/16/2025 99 [id number] Encounter Details Date Type Department Care Team (Late st Contact Info) Description 07/23/2023 10:00 AM UNIVERSITY LECTURER Infusion Department of Oncology in [place], [place] [address] [place] [phone] Bety Castro M.D. [address] [place] [phone] Lymphoma Non Hodgkins (HCC) (Primary Dx) Social [...] any clubs o r organizations such as anglican groups, unions, fraternal or athletic groups, or [...] Answer Date Recorded PHQ-2 Score 0 04/25/2020 [facility] - Occupational Stress Questionnaire Answer Date [...] place to sleep or slept in a fdc (including now)? No 01/10/2023 Nutrition Answer Date [...] Sign Reading Time Taken Comments Blood Pressure 106/48 07/23/2023 10:34 AM UNIVERSITY LECTURER Pulse 59 07/23/2023 10:34 AM UNIVERSITY LECTURER Temperature 36.7 ??C (98.1 ??F) 07/23/2023 10:[address] Respiratory Rate - - Oxygen Saturation - - Inhaled Oxygen Concentration - - Weight 79.2 kg (174 lb 9.7 oz) 07/23/2023 10:34 AM UNIVERSITY LECTURER Height - - Body Mass Index 25.8 07/22/2023 3:16 PM UNIVERSITY LECTURER documented in this encounter Plan of Treatment Upcoming Encounters Date Type Department Care Team (Latest Contact Info) Description 10/06/2023 9:04 AM UNIVERSITY LECTURER - 10/06/2023 11:24 AM UNIVERSITY LECTURER Surgery [facility]IN OR [address] [place] [phone] Cameron Saenz M.D. [address] [place] [phone] ABDOMINAL EXPLORATION, REMOVAL ABTHERA, POSSBLE BOWEL RESECTION, PROCEED INDICATED 10/11/2023 7:00 AM UNIVERSITY LECTURER Appointment Department of Laboratory Medicine and Pathology, [facility], in [place], [place] [address] [place] [phone] Arti Epstein M.B.B.S. [address] [place] [phone] 10/11/2023 9:00 AM UNIVERSITY LECTURER Office Visit Division of Hematology in [place], [place] [address] [place] [phone] Arti Epstein M.B.B.S. [address] [place] [phone] 10/11/2023 10:00 AM UNIVERSITY LECTURER Infusion Department of Oncology in [place], [place] [address] [place] [phone] Bev Gifford APRN, C.N.P., M.S.N. [address] [place] [phone] 11/19/2023 10:00 AM CDT Office Visit Division of Endocrinology in [place], [place] [address] [place] [phone] West Mendoza APRN, C.N.P., M.S. [address] [place] [phone] 11/19/2023 2:30 PM CDT Comprehensive Visit Division of Hepatobiliary and Pancreas Surgery in [place], [place] [address] [place] [phone] Wesley Hamilton M.D. 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 Given 07/23/2023 10:49 AM UNIVERSITY LECTURER 650 mg cycloPHOSphamide 1,500 mg in NaCl 0.9% 350 mL IVPB (CYTOXAN) 1,500 mg (rounded from 1,485 mg = 750 mg/m2 ? 1.98 m2 Treatment Plan BSA from Measured weight), intravenous, at 700 mL/hr, Administer over 30 Minutes, Once, On Sat07/23/23 at 1500, For 1 dose New Bag 07/23/2023 1:57 PM UNIVERSITY LECTURER 1,500 mg 700 mL/hr diphenhydrAMINE injection 25 mg (BENADRYL) 25 mg, intravenous, Once, On Sat07/23/23 at 1100, For 1 dose, Administer 30 minutes prior to riTUXimab. Given 07/23/2023 10:50 AM UNIVERSITY LECTURER 25 mg DOXOrubicin injection 100 mg (ADRIAMYCIN) 100 mg (rounded from 99 mg = 50 mg/m2 ? 1.98 m2 Treatment Plan BSA from Measured weight), intravenous, Administer over 10 Minutes, Once, On Sat07/23/23 at 1330, For 1 dose, Administer IV push through a free flowing IV of 0.9% NaCL over approximately 10 minutes via Y-site. Protect from light. Given 07/23/2023 1:46 PM UNIVERSITY LECTURER 100 mg heparin flush 500 Units 500 Units, intra-catheter, As needed, line care, Starting on Sat07/23/23 at 1437, When no infusion to maintain patency: For IVAD accessed, not in use, and/or prior to hospital discharge, flush every 7 days after 0.9% preservative-free NaCL flush. For IVAD NOT accessed or used, flush every 4 weeks after 0.9% preservative-free NaCL flush. Given 07/23/2023 2:37 PM UNIVERSITY LECTURER 500 Units palonosetron injection 0.25 mg (ALOXI) 0.25 mg, intravenous, Once, On Sat07/23/23 at 1300, For 1 dose Given 07/23/2023 10:52 AM UNIVERSITY LECTURER 0.25 mg polatuzumab vedotin-piiq 150 mg in NaCl 0.9% 117.5 mL IVPB (POLIVY) 150 mg (rounded from 145.62 mg = 1.8 mg/kg ? 80.9 kg Treatment plan Measured weight), intravenous, at 235 mL/hr, Administer over 30 Minutes, Once, On Sat07/23/23 at 1300, For 1 dose, Monitor patient for 30 [...] is ready to receive drug. New Bag 07/23/2023 1:06 PM UNIVERSITY LECTURER 150 mg 235 mL/hr riTUXimab-pvvr 700 mg in NaCl 0.9% IVPB (RUXIENCE) 700 mg (rounded from 742.5 mg = 375 mg/m2 ? 1.98 m2 Treatment Plan BSA from Measured weight), intravenous, Once, On Sat07/23/23 at 1130, For 1 dose, Infuse over 90 minutes at 280 mL/hr for 30 minutes; then 560 mL/hr for 60 minutes., Restriction Criteria (Pharmacy will review and approve if criteria met): Meets rituximab algorithm criteria Rate/Dose Change 07/23/2023 11:58 AM UNIVERSITY LECTURER 560 mL/hr New Bag 07/23/2023 11:25 AM UNIVERSITY LECTURER 700 mg sodium chloride 0.9 % injection 10 mL 10 mL, intra-catheter, As needed, line care, Starting on Sat07/23/23 at 1024, Prior to blood sampling, post blood transfusion, or post blood sampling. Given 07/23/2023 2:28 PM UNIVERSITY LECTURER 10 mL documented in this encounter Additional Health Concerns Infection Onset Date Last Indicated Resolved Time Protective Environment 05/17/2023 05/17/2023 documented as of this encounter Care Teams Vp Director Of Finance Relationship Specialty Start Date End Date Elsewhere, Pcp PCP - General Internal Medicine 05/11/23 09/13/23 documented as of this encounter
--- OUTSIDE RECORDS SUMMARY | 2023-10-05 12:59 | XMS_ITS | Encounter Summary ---
Author Name Unknown Organization [facility] Address [address] [place] [address] Care Team Providers Care Latin American Studies Director Name Role Phone Elsewhere, Pcp Primary Care Provider Unavailabl e Encounter Details Date Type Department Care Team (Late st Contact Info) Description 08/05/2023 5:55 PM FIELD CONTRACTOR Ancillary Procedure Department of Nursing Social History [...] any clubs o r organizations such as yazdanism groups, unions, fraternal or athletic groups, or [...] Contact Info) Description 10/06/2023 9:04 AM FIELD CONTRACTOR - 10/06/2023 11:24 AM FIELD CONTRACTOR Surgery [facility] MAIN OR [address] [place] [phone] Cameron Saenz M.D. [address] [place] [phone] ABDOMINAL EXPLORATION, REMOVAL ABTHERA, POSSBLE BOWEL RESECTION, PROCEED INDICATED 10/11/2023 7:00 AM FIELD CONTRACTOR Appointment Department of Laboratory Medicine and Pathology, [facility], in [place], [place] [address] [place] [phone] Arti Epstein M.B.B.S. [address] [place] [phone] 10/11/2023 9:00 AM FIELD CONTRACTOR Office Visit Division of Hematology in [place], [place] [address] [place] [phone] Arti Epstein M.B.B.S. [address] [place] [phone] 10/11/2023 10:00 AM FIELD CONTRACTOR Infusion Department of Oncology in [address] [phone] eBv Gifford APRN, C.N.P., M.S.N. [address] [place] [phone] 11/19/2023 10:00 AM CDT Office Visit Division of Endocrinology in [place], [place] [address] [place] [phone] West Mendoza APRN, C.N.P., M.S. [address] [place] [phone] 11/19/2023 2:30 PM CDT Comprehensive Visit Division of Hepatobiliary and Pancreas Surgery in [address] [phone] Wesley Hamilton M.D. [address] [place] [phone] Scheduled Procedures Name Priority Associated Diagnoses Date/Ti me LAPAROTOMY - ABDOMINAL WASHOUT Ischemia Intestinal With Stricture (HCC) 10/06/2023 9:04 AM FIELD CONTRACTOR documented as of this encounter Procedures Procedure Name Priority Date/Time Associated Diagnosis Comments NURSING IMAGE EXAM Routine 08/05/2023 5: 38 PM FIELD CONTRACTOR documented in this encounter Results * Foot, Left-Nursing Image Exam (08/05/2023 5:38 PM FIELD CONTRACTOR) 08/05/2023 5:36 PM FIELD CONTRACTOR Narrative [facility] - 08/05/2023 5:38 PM FIELD CONTRACTOR This order has been created and auto-finalized [...] documented as of this encounter Care Teams Latin American Studies Director Relationship Specialty Start Date End Date Elsewhere, Pcp PCP - General Internal Medicine 05/11/23 09/13/23 documented as of this encounter
--- OUTSIDE RECORDS SUMMARY | 2023-10-05 12:59 | XMS_ITS | Encounter Summary ---
Author Name Unknown Organization [facility] Address [address] [place] [address] Care Team Providers Care Recreation Superintendent Name Role Phone Elsewhere, Pcp Primary Care Provider Unavailabl e Reason for Referral * Outpatient (Routine) - Closed Specialty Diagnoses / Procedures Referred By Doroteo duron Referred To Contact Radiology Diagnoses Lymphoma Non Hodgkins (HCC) Other Nursing Home Current Drug Therapy Procedures IR Implanted Vascular Access Device Placement Bety Castro M.D. [address] [place] [address] [facility] Referral ID Status Reason Start Date Expiration Date Visits Re quested Visits Authorized [id number] Closed 07/05/2023 07/04/2024 1 1 RN Reason for Visit * Outpatient (Routine) - Closed Specialty Diagnoses / Procedures Referred By Doroteo duron Referred To Contact Radiology Diagnoses Lymphoma Non Hodgkins (HCC) Other Automatic Beam Warper Tender Current Drug Therapy Procedures IR Implanted Vascular Access Device Placement Bety Castro M.D. [address] [place] [address] [facility] Referral ID Status Reason Start Date Expiration Date Visits Re quested Visits Authorized [id number] Closed 07/05/2023 07/04/2024 1 1 Encounter Details Date Type Department Care Team (Latest Contact Info) Description 07/22/2023 7:57 AM LAB RN - 07/22/2023 11:15 AM LAB RN Hospital Encounter Department of Radiology in [place], [place] [address] [place] [phone] Bety Castro M.D. [address] [place] [phone] Noe Guevara M.D. [address] [place] [address] [phone] Brooklyn Freeman M.D. [address] [place] [address] [phone] Lymphoma Non Hodgkins (HCC); Other Automatic Beam Warper Tender Current Drug Therapy Discharge Disposition: Home or Self Care Social [...] often do you attend chur ch or restorationism services? Never 01/10/2023 Do you belong to [...] Date Recorded PHQ-2 Score 0 04/25/2020 [facility]at [facility] - Occupational Stress Questionnaire Answer Date [...] Sign Reading Time Taken Comments Blood Pressure 110/84 07/22/2023 11:06 AM LAB RN Pulse 70 07/22/2023 11:06 AM LAB RN Temperature 36.7 ??C (98.1 ??F) 07/22/2023 11:[address] Respiratory Rate 18 07/22/2023 11:06 AM LAB RN Oxygen Saturation 100% 07/22/2023 11:06 AM LAB RN Inhaled Oxygen Concentration - - Weight - - Height - - Body Mass Index - - documented in this encounter Discharge Instructions * Attachments The following attachments cannot be sent through Care Everywhere. * Chest Port Placement Discharge Instructions (Pashto) * VIDEO: ACCESSING A PORT (BRUNEIAN) * VIDEO: DEACCESSING A PORT (BRUNEIAN) * VIDEO: IMPLANTING A PORT (BRUNEIAN) * VIDEO: INTRODUCTION TO A PORT (BRUNEIAN) * VIDEO: LIVING WITH A PORT (BRUNEIAN) * VIDEO: REMOVING OR REPLACING A DRESSING (BRUNEIAN) documented in this encounter Medications at Time of Discharge Medication Sig Dispensed Refills Start Date End Date allopurinoL (ZYLOPRIM) 300 mg tablet Take 1 tablet (300 mg total) by mouth daily. 30 tablet 0 05/24/2023 amitriptyline (ELAVIL) 25 mg tablet Administer 0.5 tablets (12.5 mg total) via small bowel tube at bedtime as needed (neuropathy). 15 tablet 0 05/07/2023 DME CPAP DME Order 0 ondansetron ODT (ZOFRAN-ODT) 8 mg disintegrating tablet Dissolve 1 tablet (8 mg total) in the mouth every 8 (eight) hours as needed for nausea or vomiting. 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 100 each 3 07/18/2022 acetaminophen (TYLENOL) 500 mg tablet Administer 1 tablet (500 mg total) via small bowel tube every 6 (six) hours as needed for mild pain or score 1-3 of 10 or moderate pain or score 4-6 of 10. 30 tablet 0 05/07/2023 08/07/2023 aspirin 81 mg chewable tablet Administer 1 tablet (81 mg total) via small bowel tube daily. 90 tablet 3 05/07/2023 08/07/2023 empagliflozin (Jardiance) 10 mg tablet Administer 1 tablet (10 mg total) via small bowel tube every morning before breakfast. 30 tablet 11 05/07/2023 08/07/2023 ixekizumab (TALTZ) 80 mg/mL syringe injection Inject 80 mg under the skin every 28 (twenty-eight) days. One injection per month Does not use during chemotherapy 0 07/24/2017 08/07/2023 levothyroxine (SYNTHROID, LEVOTHROID) 112 mcg tablet Administer 1 tablet (112 mcg total) via small bowel tube every morning before breakfast. TAKE 2 TABLETS(224 MCG) BY MOUTH DAILY. EXCEPT ON SUNDAYS, TUESDAYS, AND THURSDAYS TAKE ONLY 1 TABLET 112 MCG. HYPOTHYROIDISM 190 tablet 3 05/07/2023 08/07/2023 liraglutide, weight loss, (SAXENDA) 3 mg/0.5 mL (18 mg/3 mL) injection Inject 1.2 mg under the skin daily. Not taking during chemo 0 07/30/2022 08/07/2023 melatonin 1 mg/mL liquid Administer 5 mL (5 mg total) via small bowel tube at bedtime as needed for sleep. 150 mL 0 05/07/2023 08/07/2023 metFORMIN (GLUCOPHAGE) 1,000 mg tabletIndications:Kristan betes Mellitus Type 2 (HCC) Administer 1 tablet (1,000 mg total) via small bowel tube daily with dinner. 100 tablet 3 05/07/2023 08/07/2023 pantoprazole (PROTONIX) 20 mg EC tablet Take 1 tablet (20 mg total) by mouth every morning before breakfast. 30 tablet 3 07/02/2023 08/05/2023 predniSONE (DELTASONE) 50 mg tabletIndications:Lym phoma Non Hodgkins (HCC) Take 2 tablets (100 mg total) by mouth daily. Days 1 through 5 of each cycle. (Prior to chemotherapy if a chemo day) 10 tablet 4 06/10/2023 09/04/2023 vit27,calcium/iron/FA (multivitamin/mineral -) tablet Administer 1 tablet via small bowel tube daily. 90 tablet 3 05/07/2023 08/07/2023 simvastatin (ZOCOR) 20 mg tablet Administer 1 tablet (20 mg total) via small bowel tube at bedtime. 90 tablet 3 05/07/2023 08/07/2023 documented as of this encounter Procedure Notes * Brooklyn Freeman M.D. - 07/22/2023 10:46 AM CST PATIENT DISPOSITION Return to Outpatient Unit for recovery. Discharge patient when discharge criteria met. POST-PROCEDURE DIAGNOSIS Need for port placement PROCEDURE PERFORMED AND DESCRIPTION Port placement via right IJ. Also IV access obtained via left IJ, which was removed upon case completion PROCEDURE DETAILS See Radiology Report SPECIMENS REMOVED None FINDINGS See radiology report PRIMARY PROCEDURALIST Paola Freeman COMPLICATIONS None. DRAINS None. IMPLANTS Reference implant document. ANESTHESIA Moderate Sedation. FLUIDS See MAR ESTIMATED BLOOD LOSS <5ml CURRENT MEDICATIONS No Medication Changes FOLLOW-UP LETTER None. MAY RETURN TO WORK Not applicable PATIENT INSTRUCTIONS No return appointment RN documented in this encounter Plan of Treatment Upcoming Encounters Date Type Department Care Team (Latest Contact Info) Description 10/06/2023 9:04 AM LAB RN - 10/06/2023 11:24 AM LAB RN Surgery [facility] OR [address] [place] [phone] Cameron Saenz M.D. [address] [place] [phone] ABDOMINAL EXPLORATION, REMOVAL ABTHERA, POSSBLE BOWEL RESECTION, PROCEED INDICATED 10/11/2023 7:00 AM LAB RN Appointment Department of Laboratory Medicine and Pathology, [facility] in [place], [place] [address] [place] [phone] Arti Epstein M.B.B.S. [address] [place] [phone] 10/11/2023 9:00 AM LAB RN Office Visit Division of Hematology in [address] [phone] Arti Epstein M.B.B.S. [address] [place] [phone] 10/11/2023 10:00 AM LAB RN Infusion Department of Oncology in [address] [phone] Bev Gifford APRN, C.N.P., M.S.N. [address] [place] [phone] 11/19/2023 10:00 AM CDT Office Visit Division of Endocrinology in [place], [place] [address] [place] [phone] West Mendoza APRN, C.N.P., M.S. [address] [place] [phone] 11/19/2023 2:30 PM CDT Comprehensive Visit Division of Hepatobiliary and Pancreas Surgery in [place], [place] [address] [place] [phone] Wesley Hamilton M.D. [address] [place] [phone] Scheduled Procedures Name Priority Associated Diagnoses Date/Ti me LAPAROTOMY - ABDOMINAL WASHOUT Ischemia Intestinal With Stricture (HCC) 10/06/2023 9:04 AM LAB RN documented as of this encounter Procedures Procedure Name Priority Date/Time Associated Diagnosis Comments IR IMPLANTED VASCULAR ACCESS DEVICE PLACEMENT RAD - Routine (most inpatients and all outpatients) 07/22/2023 10:31 AM LAB RN Lymphoma Non Hodgkins (HCC) Other Automatic Beam Warper Tender Current Drug Therapy documented in this encounter Results * IR Implanted Vascular Access Device Placement (07/22/2023 10:31 AM LAB RN) Anatomical Region Laterality Modality Chest, Pelvis, Abdomen, Vasc ular Interventional RST LOS, Vascular Interventional ARZ LOS, Vascular Interventional FLA LOS N/A X-Ray Angiography 07/22/2023 10:4 9 AM LAB RN Impressions 07/22/2023 11:33 AM LAB RN Placement of an 8 Fr slim Power Port-A-Cath. Ready for use. EP Narrative 07/22/2023 11:33 AM LAB RN EXAM: IR IMPLANTED VASCULAR ACCESS DEVICE PLACEMENT [...] for use. EP Bety LOPEZ IR PROCEDURES documented in this encounter Visit Diagnoses Diagnosis Lymphoma Non Hodgkins (HCC) Other Automatic Beam Warper Tender Current Drug Therapy Ischemia Intestinal With Stricture (HCC) documented in this encounter Administered Medications Inactive Administered Medications - up to 3 most recent administrations Medication Order MAR Action Action Date Dose Rate Site fentaNYL injection 25 mcg (SUBLIMAZE) 25 mcg, intravenous, Every 2 min PRN, sedation, Administer over 1 minute immediately prior to the procedure. May repeat every 2 minutes to a maximum of 200 mcg, until pain score of 3 or less, or until the patient meets the pain comfort goal, or RASS 0 to -2. Do not give if respiratory rate is less than 8 breaths/minute., Starting on Sat07/22/23 at 0954, For 3 hours, Intraprocedure (RAD) Given 07/22/2023 10:28 AM LAB RN 25 mcg Given 07/22/2023 10:19 AM LAB RN 25 mcg Given 07/22/2023 10:09 AM LAB RN 25 mcg fentaNYL injection 25 mcg (SUBLIMAZE) 25 mcg, intravenous, Once as needed, sedation, Starting on Sat07/22/23 at 0954, For 1 dose, Intraprocedure (RAD), IV Push flumazeniL injection 0.2 mg (ROMAZICON) 0.2 mg, intravenous, Once as needed, reversal, Starting on Sat07/22/23 at 0954, For 1 dose, Intraprocedure (RAD), Administer once if patient has a RASS score of -4, -5 and has a respiratory rate less than 8 breaths/minute. heparin flush As needed, Starting on Sat07/22/23 at 1031, Intra-Op Given 07/22/2023 10:31 AM LAB RN 800 Units lidocaine (PF) 10 mg/mL (1 %) injection (XYLOCAINE) As needed, Starting on Sat07/22/23 at 1031, Intra-Op Given 07/22/2023 10:31 AM LAB RN 9 mL lidocaine-EPINEPHrine (PF) 1 %-1:200,000 injection (XYLOCAINE W/EPI) As needed, Starting on Sat07/22/23 at 1031, Intra-Op Given 07/22/2023 10:31 AM LAB RN 10 mL Right Chest midazolam (PF) injection 0.25 mg (VERSED) 0.25 mg, intravenous, Every 2 min PRN, sedation, RASS -2, Starting on Sat07/22/23 at 0954, Intraprocedure (RAD), May repeat every 2 minutes to a maximum of 5 mg. Do not give if respiratory rate is less than 8 breaths/minute. midazolam (PF) injection 0.5 mg (VERSED) 0.5 mg, intravenous, Once as needed, sedation, Starting on Sat07/22/23 at 0954, For 1 dose, Intraprocedure (RAD) midazolam (PF) injection 0.5 mg (VERSED) 0.5 mg, intravenous, Every 2 min PRN, sedation, RASS -1, Starting on Sat07/22/23 at 0954, Intraprocedure (RAD), May repeat every 2 minutes for a maximum of 5 mg. Do not give if respiratory rate is less than 8 breaths/minute. Given 07/22/2023 10:19 AM LAB RN 0.5 mg midazolam (PF) injection 1 mg (VERSED) 1 mg, intravenous, Every 2 min PRN, sedation, RASS 0, Starting on Sat07/22/23 at 0954, Intraprocedure (RAD), May repeat every 2 minutes for a maximum of 5 mg. Do not give if respiratory rate is less than 8 breaths/minute. Given 07/22/2023 10:09 AM LAB RN 1 mg NaCl 0.9% infusion 20 mL/hr, intravenous, Once as needed, to keep vein open, Starting on Sat07/22/23 at 0954, For 1 dose, Intraprocedure (RAD) New Bag 07/22/2023 10:09 AM LAB RN 20 mL/hr 20 mL/hr naloxone injection 0.2 mg (NARCAN) 0.2 mg, intravenous, Once as needed, respiratory depression, Starting on Sat07/22/23 at 0954, For 1 dose, Intraprocedure (RAD), Administer once if patient has a RASS score of -4, -5 and has a respiratory rate less than 8 breaths/minute. ondansetron (PF) injection 4 mg (ZOFRAN) 4 mg, intravenous, Once as needed, nausea, vomiting, Starting on Sat07/22/23 at 0954, For 1 dose, Intraprocedure (RAD) sodium chloride 0.9 % injection 10 mL 10 mL, intravenous, As needed, line care, Starting on Sat07/22/23 at 0954, Intraprocedure (RAD), Peripheral Intravenous Catheter and Rapid Infusion Catheter, prior to blood sampling, post blood transfusion or post blood sampling sodium chloride 0.9 % injection 3 mL 3 mL, intravenous, As needed, line care, Starting on Sat07/22/23 at 0954, Intraprocedure (RAD), Prior to and following infusion and between multiple consecutive infusions: sodium chloride 0.9 % injection sodium chloride 0.9 % injection 3 mL 3 mL, intravenous, Every 12 hours scheduled, First dose on Sat07/22/23 at 2100, Intraprocedure (RAD), Peripheral Intravenous Catheter and Rapid Infusion Catheter, when no infusion to maintain patency documented in this encounter Active and Recently Administered Medications Times are shown in LAB RN. Scheduled Medication Order 07/20/2023 07/21/2023 07/22/2023 sodium chloride 0.9 % injection 3 mL 3 mL, intravenous, Every 12 hours scheduled, First dose on Sat07/22/23 at 2100, Intraprocedure (RAD), Peripheral Intravenous Catheter and Rapid Infusion Catheter, when no infusion to maintain patency PRN Medication Order 07/20/2023 07/21/2023 07/22/2023 fentaNYL injection 25 mcg (SUBLIMAZE) 25 mcg, intravenous, Every 2 min PRN, sedation, Administer over 1 minute immediately prior to the procedure. May repeat every 2 minutes to a maximum of 200 mcg, until pain score of 3 or less, or until the patient meets the pain comfort goal, or RASS 0 to -2. Do not give if respiratory rate is less than 8 breaths/minute., Starting on Sat07/22/23 at 0954, For 3 hours, Intraprocedure (RAD) 1009 (Given - Provid er: Leighton Gotti R.N.)1019 (Given - Provider: Leighton Gotti R.N.)1028 (Given - Provider: Leighton Gotti R.N.) fentaNYL injection 25 mcg (SUBLIMAZE) 25 mcg, intravenous, Once as needed, sedation, Starting on Sat07/22/23 at 0954, For 1 dose, Intraprocedure (RAD), IV Push flumazeniL injection 0.2 mg (ROMAZICON) 0.2 mg, intravenous, Once as needed, reversal, Starting on Sat07/22/23 at 0954, For 1 dose, Intraprocedure (RAD), Administer once if patient has a RASS score of -4, -5 and has a respiratory rate less than 8 breaths/minute. heparin flush (COMPLETED) As needed, Starting on Sat07/22/23 at 1031, Intra-Op 1031 (Given - Provid er: Brooklyn Freeman M.D.) lidocaine (PF) 10 mg/mL (1 %) injection (XYLOCAINE) (COMPLETED) As needed, Starting on Sat07/22/23 at 1031, Intra-Op 1031 (Given - Provid er: Noe Guevara M.D.) lidocaine-EPINEPHrine (PF) 1 %-1:200,000 injection (XYLOCAINE W/EPI) (COMPLETED) As needed, Starting on Sat07/22/23 at 1031, Intra-Op 1031 (Given - Provid er: Noe Guevara M.D.) midazolam (PF) injection 0.25 mg (VERSED) 0.25 mg, intravenous, Every 2 min PRN, sedation, RASS -2, Starting on Sat07/22/23 at 0954, Intraprocedure (RAD), May repeat every 2 minutes to a maximum of 5 mg. Do not give if respiratory rate is less than 8 breaths/minute. midazolam (PF) injection 0.5 mg (VERSED) 0.5 mg, intravenous, Once as needed, sedation, Starting on Sat07/22/23 at 0954, For 1 dose, Intraprocedure (RAD) midazolam (PF) injection 0.5 mg (VERSED) 0.5 mg, intravenous, Every 2 min PRN, sedation, RASS -1, Starting on Sat07/22/23 at 0954, Intraprocedure (RAD), May repeat every 2 minutes for a maximum of 5 mg. Do not give if respiratory rate is less than 8 breaths/minute. 1019 (Given - Provid er: Leighton Gotti R.N.) midazolam (PF) injection 1 mg (VERSED) 1 mg, intravenous, Every 2 min PRN, sedation, RASS 0, Starting on Sat07/22/23 at 0954, Intraprocedure (RAD), May repeat every 2 minutes for a maximum of 5 mg. Do not give if respiratory rate is less than 8 breaths/minute. 1009 (Given - Provid er: Leighton Gotti R.N.) NaCl 0.9% infusion (COMPLETED) 20 mL/hr, intravenous, Once as needed, to keep vein open, Starting on Sat07/22/23 at 0954, For 1 dose, Intraprocedure (RAD) 1009 (New Bag - Prov ider: Leighton Gotti R.N.)1032 (Stopped - Provider: Leighton Gotti R.N.) naloxone injection 0.2 mg (NARCAN) 0.2 mg, intravenous, Once as needed, respiratory depression, Starting on Sat07/22/23 at 0954, For 1 dose, Intraprocedure (RAD), Administer once if patient has a RASS score of -4, -5 and has a respiratory rate less than 8 breaths/minute. ondansetron (PF) injection 4 mg (ZOFRAN) 4 mg, intravenous, Once as needed, nausea, vomiting, Starting on Sat07/22/23 at 0954, For 1 dose, Intraprocedure (RAD) sodium chloride 0.9 % injection 10 mL 10 mL, intravenous, As needed, line care, Starting on Sat07/22/23 at 0954, Intraprocedure (RAD), Peripheral Intravenous Catheter and Rapid Infusion Catheter, prior to blood sampling, post blood transfusion or post blood sampling sodium chloride 0.9 % injection 3 mL 3 mL, intravenous, As needed, line care, Starting on Sat07/22/23 at 0954, Intraprocedure (RAD), Prior to and following infusion and between multiple consecutive infusions: sodium chloride 0.9 % injection documented in this encounter Additional Health Concerns Infection Onset Date Last Indicated Resolved Time Protective Environment 05/17/2023 05/17/2023 documented as of this encounter Care Teams Recreation Superintendent Relationship Specialty Start Date End Date Elsewhere, Pcp PCP - General Internal Medicine 05/11/23 09/13/23 documented as of this encounter
--- OUTSIDE RECORDS SUMMARY | 2023-10-05 12:59 | XMS_ITS | Encounter Summary ---
Author Name Unknown Organization [facility] Address [address] [place] [address] Care Team Providers Care Utilization Specialist Name Role Phone Elsewhere, Pcp Primary Care Provider Unavailabl e Encounter Details Date Type Department Care Team ([facility] st Contact Info) Description 07/22/2023 Clinical Communication Division of Hematology in [place], [place] [address] [place] [phone] Garcia Flores M.D., Ph.D. [address] [place] [phone] Social History Tobacco Use Types Packs/Day Years [...] any clubs o r organizations such as oriental orthodox groups, unions, fraternal or athletic groups, [...] Answer Date Recorded PHQ-2 Score 0 04/25/2020 [facility] - Occupational [...] (Latest Contact Info) Description 10/06/2023 9:04 AM PET RESORT CONCIERGE - 10/06/2023 11:24 AM PET RESORT CONCIERGE Surgery [facility] MAIN OR [address] [place] [phone] Cameron Saenz M.D. [address] [place] [phone] ABDOMINAL EXPLORATION, REMOVAL ABTHERA, POSSBLE BOWEL RESECTION, PROCEED INDICATED 10/11/2023 7:00 AM PET RESORT CONCIERGE Appointment Department of Laboratory Medicine and Pathology, [facility], in [place], [place] [address] [place] [phone] Arti Epstein M.B.B.S. [address] [place] [phone] 10/11/2023 9:00 AM PET RESORT CONCIERGE Office Visit Division of Hematology in [place], [place] [address] [place] [phone] Arti Epstein M.B.B.S. [address] [place] [phone] 10/11/2023 10:00 AM PET RESORT CONCIERGE Infusion Department of Oncology in [place], [place] [address] [place] [phone] Bev Gifford APRN, C.N.P., M.S.N. [address] [place] [phone] 11/19/2023 10:00 AM CDT Office Visit Division of Endocrinology in [place], [place] [address] [place] [phone] West Mendoza APRN, C.N.P., M.S. [address] [place] [phone] 11/19/2023 2:30 PM CDT Comprehensive Visit Division of Hepatobiliary and Pancreas Surgery in [place], [place] [address] [place] [phone] Wesley Hamilton M.D. [address] [place] [phone] Scheduled Procedures Name Priority Associated Diagnoses Date/Ti me LAPAROTOMY - ABDOMINAL WASHOUT Ischemia Intestinal With Stricture (HCC) 10/06/2023 9:04 AM PET RESORT CONCIERGE documented as of this encounter Visit Diagnoses Not on filedocumented in this encounter Additional Health Concerns Infection Onset Date Last Indicated Resolved Time Protective Environment 05/17/2023 05/17/2023 documented as of this encounter Care Teams Utilization Specialist Relationship Specialty Start Date End Date Elsewhere, Pcp PCP - General Internal Medicine 05/11/23 09/13/23 documented as of this encounter
--- OUTSIDE RECORDS SUMMARY | 2023-10-05 12:59 | XMS_ITS | Encounter Summary ---
Author Name Unknown Organization [facility] Address [address] [place] [address] Care Team Providers Care Insurance Assistant Name Role Phone Elsewhere, Pcp Primary Care Provider Unavailabl e Reason for Visit * Reason Onset Date Comments Order Request 08/02/2023 Encounter Details Date Type Department Care Team (Late st Contact Info) Description 08/02/2023 Clinical Communication Division of Hematology in [place], [place] [address] [place] [phone] Garcia Flores M.D., Ph.D. [address] [place] [phone] Order Request Social History Tobacco Use Types Packs/Day Years [...] How often do you attend chur or adventism services? Never 01/10/2023 Do you belong to any clubs o r organizations such as shinto groups, unions, fraternal or athletic groups, or [...] place to sleep or slept in a retirement (including now)? No 01/10/2023 Nutrition Answer Date [...] (Latest Contact Info) Description 10/06/2023 9:04 AM SLURRY WORKER - 10/06/2023 11:24 AM SLURRY WORKER Surgery [facility] OR [address] [place] [phone] Cameron Saenz M.D. [address] [place] [phone] ABDOMINAL EXPLORATION, REMOVAL ABTHERA, POSSBLE BOWEL RESECTION, PROCEED INDICATED 10/11/2023 7:00 AM SLURRY WORKER Appointment Department of Laboratory Medicine and Pathology, [facility], in [place], [place] [address] [place] [phone] Arti Epstein M.B.B.S. [address] [place] [phone] 10/11/2023 9:00 AM SLURRY WORKER Office Visit Division of Hematology in [place], [place] [address] [place] [phone] Arti Epstein M.B.B.S. [address] [place] [phone] 10/11/2023 10:00 AM SLURRY WORKER Infusion Department of Oncology in [place], [place] [address] [place] [phone] Bev Gifford APRN, C.N.P., M.S.N. [address] [place] [phone] 11/19/2023 10:00 AM CDT Office Visit Division of Endocrinology in [place], [place] [address] [place] [phone] West Mendoza APRN, C.N.P., M.S. [address] [place] [phone] 11/19/2023 2:30 PM CDT Comprehensive Visit Division of Hepatobiliary and Pancreas Surgery in [place], [place] [address] [place] [phone] Wesley Hamilton M.D. [address] [place] [phone] Scheduled Procedures Name Priority Associated Diagnoses Date/Ti me LAPAROTOMY - ABDOMINAL WASHOUT Ischemia Intestinal With Stricture (HCC) 10/06/2023 9:04 AM SLURRY WORKER documented as of this encounter Visit Diagnoses Not on filedocumented in this encounter Additional Health Concerns Infection Onset Date Last Indicated Resolved Time Protective Environment 05/17/2023 05/17/2023 documented as of this encounter Care Teams Insurance Assistant Relationship Specialty Start Date End Date Elsewhere, Pcp PCP - General Internal Medicine 05/11/23 09/13/23 documented as of this encounter
--- OUTSIDE RECORDS SUMMARY | 2023-10-05 12:59 | XMS_ITS | Encounter Summary ---
Author Name Unknown Organization [facility] Address [address] [place] [address] Care Team Providers Care Line Cook Name Role Phone Elsewhere, Pcp Primary Care Provider Unavailabl e Encounter Details Date Type Department Care Team ([facility] st Contact Info) Description 08/05/2023 Clinical Communication Division of Hematology in [place], [place] [address] [place] [phone] Garcia Flores M.D., Ph.D. [address] [place] [phone] Social History Tobacco Use Types Packs/Day Years [...] often do you attend chur ch or hindu services? Never 01/10/2023 Do you belong to [...] 04/25/2020 [facility]ational Stress Questionnaire Answer Date [...] Encounter - Marisol Gomez R.N., O.C.N. - 08/05/2023 10:25 AM CST SUBJECTIVE CHIEF COMPLAINT / REASON FOR CALL No chief complaint on file. ASSESSMENT Stage IV double expressor [facility] DLBCL - Preston-R-CHP cycle 4 administered 07/23/23 - fulphila administered 07/24/23 - weekly CBC with differential Received results call from [facility] with Hgb 6.6 and patient's BP 93/50. Phoned patient to further assess. He reports being lightheaded, weak and in a chair or lying down most of the time due to feeling lightheaded and fatigued. Patient says he feels stable when using hiswalker but is quite lightheaded when walking. Denzel reports black/brown diarrhea for 2-3 days this weekend. The diarrhea was watery black/brown in color. He tells me today it is better. His voice is hoarse and he has a productive cough with yellow phlegm. Patient also notes sore gums and mouth sores. He has been using baking soda/salt water swishes which is helping as his mouth is not as sore. He denies bleeding in his mouth from gums. Denzel does note bruising on his arms. Due to Hgb 6.6 and black/brown diarrhea over the weekend patient sent to ER. Report called. PLAN Disposition/Recommendation: recommended to report to the nearest emergency department. Information/Education: patient/caller able to teach back. Caller agreeable to plan of care: yes. The following references were used: nursing clinical judgement. ENGINEER * Telephone Encounter - Mireya Yoo R.N. - 08/05/2023 10:18 AM LEAN ENGINEER Critical lab result Hgb 6.6 Hct: 21.2% Plt:106 Blood pressure 93/50 ENGINEER documented in this encounter Plan of Treatment Upcoming Encounters Date Type Department Care Team (Latest Contact Info) Description 10/06/2023 9:04 AM LEAN ENGINEER - 10/06/2023 11:24 AM LEAN ENGINEER Surgery [facility] MAIN OR [address] [place] [phone] Cameron Saenz M.D. [address] [place] [phone] ABDOMINAL EXPLORATION, REMOVAL ABTHERA, POSSBLE BOWEL RESECTION, PROCEED INDICATED 10/11/2023 7:00 AM LEAN ENGINEER Appointment Department of Laboratory Medicine and Pathology, [facility], in [place], [place] [address] [place] [phone] Arti Epstein M.B.B.S. [address] [place] [phone] 10/11/2023 9:00 AM LEAN ENGINEER Office Visit Division of Hematology in [place], [place] [address] [place] [phone] Arti Epstein M.B.B.S. [address] [place] [phone] 10/11/2023 10:00 AM LEAN ENGINEER Infusion Department of Oncology in [place], [place] [address] [place] [phone] Bev Gifford APRN, C.N.P., M.S.N. [address] [place] [phone] 11/19/2023 10:00 AM CDT Office Visit Division of Endocrinology in [place], [place] [address] [place] [phone] West Mendoza APRN C.N.P., M.S. [address] [place] [phone] 11/19/2023 2:30 PM CDT Comprehensive Visit Division of Hepatobiliary and Pancreas Surgery in [place], [place] [address] [place] [phone] Wesley Hamilton M.D. [address] [place] [phone] Scheduled Procedures Name Priority Associated Diagnoses Date/Ti me LAPAROTOMY - ABDOMINAL WASHOUT Ischemia Intestinal With Stricture (HCC) 10/06/2023 9:04 AM LEAN ENGINEER documented as of this encounter Procedures Procedure Name Priority Date/Time Associated Diagnosis Comments HEMATOLOGY/ONCOLOGY - BLOOD, EXTERNAL LAB RESULTS Routine 08/05/2023 9:15 AM LEAN ENGINEER documented in this encounter Results * (ABNORMAL) Hematology/Oncology - Blood, External Lab Results (08/05/2023 9:15 AM LEAN ENGINEER) EXT Hemoglobin 6.6(A) 13.5 - 17.5 SCANNED REPORT EXT Hematocrit 21.2 SCANNED REPORT EXT Leukocytes 6.72 SCANNED REPORT EXT Absolute Neutrophil Count 5.80 SCANNED REPORT EXT Lymphs Absolute 0.20 SCANNED REPORT EXT Platelet Count 106 SCANNED REPORT Blood 08/05/2023 9:15 AM LEAN ENGINEER Historical Provider LAB BLOOD NON ADD-ON SCANNED REPORT documented in this encounter Visit Diagnoses Not on filedocumented in this encounter Additional Health Concerns Infection Onset Date Last Indicated Resolved Time Protective Environment 05/17/2023 05/17/2023 documented as of this encounter Care Teams Line Cook Relationship Specialty Start Date End Date Elsewhere, Pcp PCP - General Internal Medicine 05/11/23 09/13/23 documented as of this encounter
--- OUTSIDE RECORDS SUMMARY | 2023-10-05 12:59 | XMS_ITS | Encounter Summary ---
Author Name Unknown Organization [facility] Address [address] [place] [address] Care Team Providers Care Assembler Production Line Name Role Phone Elsewhere, Pcp Primary Care Provider Unavailabl e Encounter Details Date Type Department Care Team (Late st Contact Info) Description 08/05/2023 5:50 PM ENGRAVED ROLLER INSPECTOR Ancillary Procedure Department of Nursing Social History [...] often do you attend chur ch or catholic services? Never 01/10/2023 Do you belong to any clubs o r organizations such as holiness groups, unions, fraternal or athletic groups, or [...] Answer Date Recorded PHQ-2 Score 0 04/25/2020 [facility] - Occupational [...] (Latest Contact Info) Description 10/06/2023 9:04 AM ENGRAVED ROLLER INSPECTOR - 10/06/2023 11:24 AM ENGRAVED ROLLER INSPECTOR Surgery [facility] MAIN OR [address] [place] [phone] Cameron Saenz M.D. [address] [place] [phone] ABDOMINAL EXPLORATION, REMOVAL ABTHERA, POSSBLE BOWEL RESECTION, PROCEED INDICATED 10/11/2023 7:00 AM ENGRAVED ROLLER INSPECTOR Appointment Department of Laboratory Medicine and Pathology, [facility], in [place], [place] [address] [place] [phone] Arti Epstein M.B.B.S. [address] [place] [phone] 10/11/2023 9:00 AM ENGRAVED ROLLER INSPECTOR Office Visit Division of Hematology in [place], [place] [address] [place] [phone] Arti Epstein M.B.B.S. [address] [place] [phone] 10/11/2023 10:00 AM ENGRAVED ROLLER INSPECTOR Infusion Department of Oncology in [address] [phone] Bev Gifford APRN, C.N.P., M.S.N. [address] [place] [phone] 11/19/2023 10:00 AM CDT Office Visit Division of Endocrinology in [place], [place] [address] [place] [phone] West Mendoza APRN, C.N.P., M.S. [address] [place] [phone] 11/19/2023 2:30 PM CDT Comprehensive Visit Division of Hepatobiliary and Pancreas Surgery in [address] [phone] Wesley Hamilton M.D. [address] [place] [phone] Scheduled Procedures Name Priority Associated Diagnoses Date/Ti me LAPAROTOMY - ABDOMINAL WASHOUT Ischemia Intestinal With Stricture (HCC) 10/06/2023 9:04 AM ENGRAVED ROLLER INSPECTOR documented as of this encounter Procedures Procedure Name Priority Date/Time Associated Diagnosis Comments NURSING IMAGE EXAM Routine 08/05/2023 5: 38 PM ENGRAVED ROLLER INSPECTOR documented in this encounter Results * Leg, right-Nursing Image Exam (08/05/2023 5:38 PM ENGRAVED ROLLER INSPECTOR) 08/05/2023 5:36 PM ENGRAVED ROLLER INSPECTOR Narrative IIMS - 08/05/2023 5:38 PM ENGRAVED ROLLER INSPECTOR This order has been created and auto-finalized [...] documented as of this encounter Care Teams Assembler Production Line Relationship Specialty Start Date End Date Elsewhere, Pcp PCP - General Internal Medicine 05/11/23 09/13/23 documented as of this encounter
--- OUTSIDE RECORDS SUMMARY | 2023-10-05 13:00 | XMS_ITS | Encounter Summary ---
Author Name Unknown Organization [facility] Address [address] [place] [address] Care Team Providers Care Log Chipper Operator Name Role Phone Elsewhere, Pcp Primary Care Provider Unavailabl e Reason for Referral * Outpatient (Routine) - Closed Specialty Diagnoses / Procedures Referred By Doroteo t Referred To Contact Radiology Diagnoses Lymphoma Non Hodgkins (HCC) Other Group Home Current Drug Therapy Procedures IR Implanted Vascular Access Device Placement Bety Castro M.D. [address] [place] [phone] [facility] Referral ID Status Reason Start Date Expiration Date Visits Re quested Visits Authorized [id number] Closed 07/05/2023 07/04/2024 1 1 Reason for Visit * Reason Onset Date Comments Questions about possible picc line 07/04/2023 Encounter Details Date Type Department Care Team (Latest Contact Info) Description 07/04/2023 Clinical Communication Division of Hematology in [place], [place] [address] [place] [phone] Garcia Flores M.D., Ph.D. [address] [place] [phone] Questions about possible picc line Social History Tobacco Use Types Packs/Day Years [...] often do you attend chur ch or zoroastrianism services? Never 01/10/2023 Do you belong to [...] Answer Date Recorded PHQ-2 Score 0 04/25/2020 [facility] - Occupational Stress [...] (Latest Contact Info) Description 10/06/2023 9:04 AM STATION USHER - 10/06/2023 11:24 AM STATION USHER Surgery [facility] MAIN OR [address] [place] [phone] Cameron Saenz M.D. [address] [place] [phone] ABDOMINAL EXPLORATION, REMOVAL ABTHERA, POSSBLE BOWEL RESECTION, PROCEED INDICATED 10/11/2023 7:00 AM STATION USHER Appointment Department of Laboratory Medicine and Pathology, [facility], in [place], [place] [address] [place] [phone] Arti Epstein M.B.B.S. [address] [place] [phone] 10/11/2023 9:00 AM STATION USHER Office Visit Division of Hematology in [address] [phone] Arti Epstein M.B.B.S. [address] [place] [phone] 10/11/2023 10:00 AM STATION USHER Infusion Department of Oncology in [address] [phone] Bev Gifford APRN, C.N.P., M.S.N. [address] [place] [phone] 11/19/2023 10:00 AM CDT Office Visit Division of Endocrinology in [place], [place] [address] [place] [phone] West Mendoza APRN, C.N.P., M.S. [address] [place] [phone] 11/19/2023 2:30 PM CDT Comprehensive Visit Division of Hepatobiliary and Pancreas Surgery in [place], [place] [address] [place] [phone] Wesley Hamilton M.D. [address] [place] [phone] Scheduled Procedures Name Priority Associated Diagnoses Date/Ti me LAPAROTOMY - ABDOMINAL WASHOUT Ischemia Intestinal With Stricture (HCC) 10/06/2023 9:04 AM STATION USHER documented as of this encounter Results * IR Implanted Vascular Access Device Placement (07/22/2023 10:31 AM STATION USHER) Anatomical Region Laterality Modality Chest, Pelvis, Abdomen, Vasc ular Interventional RST LOS, Vascular Interventional ARZ LOS, Vascular Interventional FLA LOS N/A X-Ray Angiography 07/22/2023 10:4 9 AM STATION USHER Impressions 07/22/2023 11:33 AM STATION USHER Placement of an 8 Fr slim Power Port-A-Cath. Ready for use. EP Narrative 07/22/2023 11:33 AM STATION USHER EXAM: IR IMPLANTED VASCULAR ACCESS DEVICE PLACEMENT [...] Diagnoses Diagnosis Lymphoma Non Hodgkins (HCC)- Primary Other Group Home Current Drug Therapy Lymphoma Non Hodgkins (HCC) Other [place] Current Drug Therapy Ischemia Intestinal With Stricture (HCC) documented in this encounter Additional Health Concerns Infection Onset Date Last Indicated Resolved Time Protective Environment 05/17/2023 05/17/2023 documented as of this encounter Care Teams Log Chipper Operator Relationship Specialty Start Date End Date Elsewhere, Pcp PCP - General Internal Medicine 05/11/23 09/13/23 documented as of this encounter
--- OUTSIDE RECORDS SUMMARY | 2023-10-05 13:00 | XMS_ITS | Encounter Summary ---
Author Name Unknown Organization [facility] Address [address] [place] [address] Care Team Providers Care Hand Cigar Making Supervisor Name Role Phone Elsewhere, Pcp Primary Care Provider Unavailabl e Reason for Referral * Outpatient (Routine) Specialty Diagnoses / Procedures Referred By Doroteo duron Referred To Contact Hematology Oncology Bety Crowell M.D. [address] [place] [phone] [facility] Referral ID Status Reason Start Date Expiration Date Visits Re quested Visits Authorized * Outpatient (Routine) Specialty Diagnoses / Procedures Referred By Doroteo t Referred To Contact Hematology Oncology Bety Crowell M.D. [address] [place] [phone] [facility] Referral ID Status Reason Start Date Expiration Date Visits Re quested Visits Authorized Reason for Visit * Episode Based Medications (Routine) - Authorized Specialty Diagnoses / Procedures Referred By Contac t Referred To Contact Diagnoses Lymphoma Non Hodgkins (HCC) Procedures X Molly Jarquin M.B.BJohannaSJohanna, MBeny [address] [place] [phone] [address] [place] [address] [place] [phone] Referral ID Status Reason Start Date Expiration Date V isits Requested Visits Authorized [id number] Authorized 05/17/2023 05/16/2025 99 99 Encounter Details Date Type Department Care Team (Late st Contact Info) Description 07/02/2023 9:00 AM CDT Office Visit Division of Hematology in [place], [place] [address] [place] [phone] Hola Bobo M.D. [address] [place] [phone] Lymphoma Non Hodgkins (HCC) (Primary Dx); Chronic Kidney Disease Stage 2 Glomerular Filtration Rate 60 To 89 Social History Tobacco Use Types Packs/Day Years [...] often do you attend chur ch or nondenominational services? Never 01/10/2023 Do you belong to any clubs o r organizations such as roman catholic groups, unions, fraternal or athletic groups, or [...] Score 0 04/25/2020 [facility] - Occupational Stress Questionnaire Answer Date [...] Sign Reading Time Taken Comments Blood Pressure 109/67 07/02/2023 8:56 AM CDT Pulse 64 07/02/2023 8:56 AM CDT Temperature 36.7 ??C (98.1 ??F) 07/02/2023 8:56 AM CD T Respiratory Rate - - Oxygen Saturation - - Inhaled Oxygen Concentration - - Weight 76.5 kg (168 lb 10.4 oz) 07/02/2023 8:56 AM CDT Height 173.5 cm (5' 8.31) 07/02/2023 8:56 AM CD T Body Mass Index 25.41 07/02/2023 8:56 AM CDT documented in this encounter Progress Notes * Hola Bobo M.D. - 07/02/2023 9:00 AM CDT SUBJECTIVE CHIEF COMPLAINT / REASON FOR VISIT Hola Lau is a 72 y.o. male who presents for evaluation of non-Hodgkin lymphoma, intravenous chemotherapy, dyspepsia, follow-up nutrition, and other medical issues. HISTORY OF PRESENT ILLNESS Oncology History Overview Note May 2023: The patient was feeling unwell with mostly postprandial nausea, vomiting, abdominalpain and inability to tolerate PO intake. Since January 2023, he lost about 40 pounds but denied fever,night sweats or palpable lumps. He was hospitalized during mid April 2023 at [facility] due to his nausea, vomiting and [...] evidence of cholecystitis. During his hospital stay [facility], he had fevers and low hemoglobin in the 8-9 g per dL range as well as an ROMEO that improved with fluids. An EGD was performed on 04/24/2023 in [facility] which revealed a duodenal necrotizing ulcer which was biopsied, however, that was read as a necroinflammatory ulcer with duodenal mucosa, acute and chronic inflammation without evidence of active malignancy. He was treated with PPI and antibiotics despite no source of infection. He was discharged on 04/27/2023. April 29, 2023: The patient was readmitted after he was seen that morning in [facility] andfound to be hypotensive with a blood pressure of 78/39. He was referred to [facility] where he was hypotensive with [...] 2023: The patient was evaluated in the [facility]. A PET CT on 05/10/2023 [...] 2023: The patient was re-evaluated in the [facility]. The patient had no new intervening issues. He noted an upset stomach intermittently. The hemoglobin is 10.4 grams/deciliter, platelet count 870111, and white count [id number]. The metabolic panel was unremarkable. 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 See cytogenetic report for complete details. COMMENT The tumor has a germinal center phenotype by the Shoaib algorithm. 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 FISH did not show evidence of a genetic double hit. 05/18/2023 - Chemotherapy [facility] Start Date: 05/18/2023 Biopsy/Pathology Biopsy/Pathology REVIEW OF SYSTEMS Constitutional: Positive for fatigue. - Performance score 1 Gastrointestinal: Positive for heartburn. Hematologic: - See HPI The following systems were negative: Skin, Eyes, ENT, Respiratory, Cardiovascular, Genitourinary, Musculoskeletal, Neurological OBJECTIVE PHYSICAL EXAM Vitals reviewed. Constitutional Appearance: Normal appearance. He is well-developed. HENT Head: Normocephalic. Mouth/Throat: Pharynx: No oropharyngeal exudate. Eyes General: Lids are normal. Conjunctiva/sclera: Conjunctivae normal. Cardiovascular Rate and Rhythm: Normal rate and regular rhythm. Heart sounds: Normal heart sounds. No murmur heard. Pulmonary Effort: Pulmonary effort is normal. No respiratory distress. Breath sounds: Normal breath sounds. No decreased breath sounds. Abdominal Palpations: Abdomen is soft. Tenderness: There is no abdominal tenderness. Lymphadenopathy Cervical: No cervical adenopathy. Upper Body: Right upper body: No supraclavicular or axillary adenopathy. Left upper body: No supraclavicular or axillary adenopathy. Lower Body: No right inguinal adenopathy. No left inguinal adenopathy. Skin General: Skin is warm and dry. Findings: No rash. Neurological General: No focal deficit present. Mental Status: He is alert and oriented to person, place, and time. Psychiatric Mood and Affect: Mood normal. Behavior: Behavior normal. Thought Content: Thought content normal. Judgment: Judgment normal. Recent Results (from the past 72 hour(s)) CBC with Differential, Blood Collection Time: 07/02/23 7:53 AM Result Value Hemoglobin 10.4 (L) Hematocrit 34.1 (L) Erythrocytes 3.97 (L) MCV 85.9 RBC Distrib Width 24.4 (H) Platelet Count 431 (H) Leukocytes 20.4 (H) Neutrophils 18.61 (H) Lymphocytes 0.70 (L) Monocytes 0.75 Eosinophils 0.18 Basophils 0.18 (H) Comprehensive Metabolic Panel Collection Time: 07/02/23 7:53 AM Result Value Potassium, S 4.5 Sodium, S 143 Chloride, S 102 Bicarbonate, S 23 Anion Gap 18 (H) BUN (Blood Urea Nitrogen), S 13 Creatinine 0.99 Estimated GFR (eGFR) 80 Calcium, Total, S 8.9 Glucose, S 77 Protein, Total, S 5.9 (L) Albumin, S 3.9 Aspartate Aminotransferase (AST), S 28 Alkaline Phosphatase, S 139 (H) Alanine Aminotransferase (ALT), S 22 Bilirubin, Total, S 0.2 ASSESSMENT / PLAN #1 Lymphoma Non Hodgkins (HCC) We will treat patient with cycle 3. Protonix was ordered. #2 Chronic Kidney Disease Stage 2 Glomerular Filtration Rate 60 To 89 This was clinically stable. Total time: 38 minutes documented in this encounter Miscellaneous Notes * Addendum Note - Bety Crowell M.D. - 07/02/2023 9:00 AM CDT Addended by: BETY CROWELL on: 07/02/2023 01:06 PM Modules accepted: Orders documented in this encounter Plan of Treatment Upcoming Encounters Date Type Department Care Team (Latest Contact Info) Description 10/06/2023 9:04 AM HIMS CLERK - 10/06/2023 11:24 AM HIMS CLERK Surgery [facility]ST [facility] MAIN OR [address] [place] [phone] Cameron Saenz M.D. [address] [place] [phone] ABDOMINAL EXPLORATION, REMOVAL ABTHERA, POSSBLE BOWEL RESECTION, PROCEED INDICATED 10/11/2023 7:00 AM HIMS CLERK Appointment Department of Laboratory Medicine and Pathology, [facility], in [place], [place] [address] [place] [phone] Arti Epstein M.B.B.S. [address] [place] [phone] 10/11/2023 9:00 AM HIMS CLERK Office Visit Division of Hematology in [place], [place] [address] [place] [phone] Arti Epstein M.B.B.S. [address] [place] [phone] 10/11/2023 10:00 AM HIMS CLERK Infusion Department of Oncology in [place], [place] [address] [place] [phone] Bev Gifford APRN, C.N.P., M.S.N. [address] [place] [phone] 11/19/2023 10:00 AM CDT Office Visit Division of Endocrinology in [address] [phone] [place] APRN, C.N.P., M.S. [address] [place] [phone] 11/19/2023 2:30 PM CDT Comprehensive Visit Division of Hepatobiliary and Pancreas Surgery in [address] [phone] Wesley Hamilton M.D. [address] [place] [phone] Scheduled Procedures Name Priority Associated Diagnoses Date/Ti me LAPAROTOMY - ABDOMINAL WASHOUT Ischemia Intestinal With Stricture (HCC) 10/06/2023 9:04 AM HIMS CLERK Scheduled Referrals Name Type Priority Associated Diagnoses Order Schedule Hematology office visit (clinic) [place]; Lymphoma; Pre-Chemo Outpatient Referral Routine Lymphoma Non Hodgkins (HCC) Expected: 07/23/2023, Expires: 07/23/2024 Hematology office visit (clinic) [place] [facility]; Lymphoma; Pre-Chemo Outpatient Referral Routine Lymphoma Non Hodgkins (HCC) Expected: 08/13/2023, Expires: 08/13/2024 documented as of this encounter Results * (ABNORMAL) Comprehensive Metabolic Panel (08/12/2023 8:28 AM HIMS CLERK) Potassium, S 3.4(L) 3.6 - 5.2 mmol/L 08/12/2023 9:32 AM HIMS CLERK DTL Sodium, S 143 135 - 145 mmol/L 08/12/2023 9:32 AM HIMS CLERK DTL Chloride, S 107 98 - 107 mmol/L 08/12/2023 9:32 AM HIMS CLERK DTL Bicarbonate, S 27 22 - 29 mmol/L 08/12/2023 9:32 AM HIMS CLERK DTL Anion Gap 9 7 - 15 08/12/2023 9:32 AM HIMS CLERK DTL BUN (Blood Urea Nitrogen), S 9 8 - 24 mg/dL 08/12/2023 9:32 AM HIMS CLERK DTL Creatinine 0.77 0.74 - 1.35 mg/dL 08/12/2023 9:32 AM HIMS CLERK DTL Estimated GFR (eGFR) >90 >=60 mL/min/BS A 08/12/2023 9:32 AM HIMS CLERK DTL Comment: Estimated GFR calculated using the 2020 CKD_EPI creatinine equation. Calcium, Total, S 7.6(L) 8.8 - 10.2 mg/dL 08/12/2023 9:32 AM HIMS CLERK DTL Glucose, S 86 70 - 140 mg/dL 08/12/2023 9:32 AM HIMS CLERK DTL Protein, Total, S 4.7(L) 6.3 - 7.9 g/dL 08/12/2023 9:32 AM HIMS CLERK DTL Albumin, S 2.9(L) 3.5 - 5.0 g/dL 08/12/2023 9:32 AM HIMS CLERK DTL Aspartate Aminotransferase (AST), S 18 8 - 48 U/L 08/12/2023 9:32 AM HIMS CLERK DTL Alkaline Phosphatase, S 92 40 - 129 U/L 08/12/2023 9:32 AM HIMS CLERK DTL Alanine Aminotransferase (ALT), S 9 7 - 55 U/L 08/12/2023 9:32 AM HIMS CLERK DTL Bilirubin, Total, S <0.2 0.0 - 1.2 mg/dL 08/12/2023 9:32 AM HIMS CLERK DTL Blood (Blood, Venous) 08/12/2023 8:28 AM HIMS CLERK 08/12/2023 9:08 AM HIMS CLERK Bety Crowell M.D. LAB BLO OD ADD-ON [facility] [address] [place] [address], [facility] DTL [facility] [address] [place] [address] * (ABNORMAL) CBC with Differential, Blood (08/12/2023 8:28 AM HIMS CLERK) Hemoglobin 8.6(L) 13.2 - 16.6 g/dL 08/12/2023 9:32 AM HIMS CLERK DTL Hematocrit 27.3(L) 38.3 - 48.6 % 08/12/2023 9:32 AM HIMS CLERK DTL Erythrocytes 3.04(L) 4.35 - 5.65 x10(12)/L 08/12/2023 9:32 AM HIMS CLERK DTL MCV 89.8 78.2 - 97.9 fL 08/12/2023 9:32 AM HIMS CLERK DTL RBC Distrib Width 21.2(H) 11.8 - 14.5 % 08/12/2023 9:32 AM HIMS CLERK DTL Platelet Count 253 135 - 317 x10(9)/L 08/12/2023 9:32 AM HIMS CLERK DTL Leukocytes 9.1 3.4 - 9.6 x10(9)/L 08/12/2023 9:32 AM HIMS CLERK DTL Neutrophils 8.01(H) 1.56 - 6.45 x10(9)/L 08/12/2023 9:32 AM HIMS CLERK DHPM Lymphocytes 0.30(L) 0.95 - 3.07 x10(9)/L 08/12/2023 9:32 AM HIMS CLERK DTL Monocytes 0.62 0.26 - 0.81 x10(9)/L 08/12/2023 9:32 AM HIMS CLERK DTL Eosinophils 0.12 0.03 - 0.48 x10(9)/L 08/12/2023 9:32 AM HIMS CLERK DTL Basophils 0.07 0.01 - 0.08 x10(9)/L 08/12/2023 9:32 AM HIMS CLERK DTL Blood (Blood, Venous) 08/12/2023 8:28 AM HIMS CLERK 08/12/2023 8:40 AM HIMS CLERK Bety Crowell M.D. LAB BLO OD ADD-ON [facility] [address] [place] [address], [facility] DTL [facility] [address] [place] [address] [facility] [address] [place] [address] * (ABNORMAL) Comprehensive Metabolic Panel (07/22/2023 9:25 AM HIMS CLERK) Pathologist [facility] Potassium, S 4.0 3.6 - 5.2 mmol/L 07/22/2023 10:24 AM HIMS CLERK DTL Sodium, S 145 135 - 145 mmol/L 07/22/2023 10:24 AM HIMS CLERK DTL Chloride, S 108(H) 98 - 107 mmol/L 07/22/2023 10:24 AM HIMS CLERK DTL Bicarbonate, S 24 22 - 29 mmol/L 07/22/2023 10:24 AM HIMS CLERK DTL Anion Gap 13 7 - 15 07/22/2023 10:24 AM HIMS CLERK DTL BUN (Blood Urea Nitrogen), S 13 8 - 24 mg/dL 07/22/2023 10:24 AM HIMS CLERK DTL Creatinine 0.92 0.74 - 1.35 mg/dL 07/22/2023 10:24 AM HIMS CLERK DTL Estimated GFR (eGFR) 87 >=60 mL/min/BS A 07/22/2023 10:24 AM HIMS CLERK DTL Comment: Estimated GFR calculated using the 2020 CKD_EPI creatinine equation. Calcium, Total, S 7.8(L) 8.8 - 10.2 mg/dL 07/22/2023 10:24 AM HIMS CLERK DTL Glucose, S 81 70 - 140 mg/dL 07/22/2023 10:24 AM HIMS CLERK DTL Protein, Total, S 4.8(L) 6.3 - 7.9 g/dL 07/22/2023 10:24 AM HIMS CLERK DTL Albumin, S 3.2(L) 3.5 - 5.0 g/dL 07/22/2023 10:24 AM HIMS CLERK DTL Aspartate Aminotransferase (AST), S 19 8 - 48 U/L 07/22/2023 10:24 AM HIMS CLERK DTL Alkaline Phosphatase, S 107 40 - 129 U/L 07/22/2023 10:24 AM HIMS CLERK DTL Alanine Aminotransferase (ALT), S 13 7 - 55 U/L 07/22/2023 10:24 AM HIMS CLERK DTL Bilirubin, Total, S 0.2 0.0 - 1.2 mg/dL 07/22/2023 10:24 AM HIMS CLERK DTL Blood (Blood, Venous) 07/22/2023 9:25 AM HIMS CLERK 07/22/2023 10:01 AM HIMS CLERK Bety Crowell M.D. LAB BLO OD ADD-ON [facility] - [address] [address], [facility] [address] [address] * (ABNORMAL) CBC with Differential, Blood (07/22/2023 9:25 AM HIMS CLERK) Hemoglobin 8.8(L) 13.2 - 16.6 g/dL 07/22/2023 10:55 AM HIMS CLERK DTL Hematocrit 28.5(L) 38.3 - 48.6 % 07/22/2023 10:55 AM HIMS CLERK DTL Erythrocytes 3.31(L) 4.35 - 5.65 x10(12)/L 07/22/2023 10:55 AM HIMS CLERK DTL MCV 86.1 78.2 - 97.9 fL 07/22/2023 10:55 AM HIMS CLERK DTL RBC Distrib Width 22.9(H) 11.8 - 14.5 % 07/22/2023 10:55 AM HIMS CLERK DTL Platelet Count 242 135 - 317 x10(9)/L 07/22/2023 10:55 AM HIMS CLERK DTL Leukocytes 10.4(H) 3.4 - 9.6 x10(9)/L 07/22/2023 10:55 AM HIMS CLERK DTL Neutrophils 9.48(H) 1.56 - 6.45 x10(9)/L 07/22/2023 10:55 AM HIMS CLERK DHPM Lymphocytes 0.31(L) 0.95 - 3.07 x10(9)/L 07/22/2023 10:55 AM HIMS CLERK DTL Monocytes 0.52 0.26 - 0.81 x10(9)/L 07/22/2023 10:55 AM HIMS CLERK DTL Eosinophils 0.07 0.03 - 0.48 x10(9)/L 07/22/2023 10:55 AM HIMS CLERK DTL Basophils 0.06 0.01 - 0.08 x10(9)/L 07/22/2023 10:55 AM HIMS CLERK DTL Blood (Blood, Venous) 07/22/2023 9:25 AM HIMS CLERK 07/22/2023 9:44 AM HIMS CLERK Bety Crowell M.D. LAB BLO OD ADD-ON [facility] [address] [place] [address], [facility] DTL [facility] [address] [place] [address] DHPM [facility] [address] [place] [address] documented in this encounter Visit Diagnoses Diagnosis Lymphoma Non Hodgkins (HCC)- Primary Chronic Kidney Disease Stage 2 Glomerular Filtration Rate 60 To 89 Ischemia Intestinal With Stricture (HCC) documented in this encounter Additional Health Concerns Infection Onset Date Last Indicated Resolved Time Protective Environment 05/17/2023 05/17/2023 documented as of this encounter Care Teams Hand Cigar Making Supervisor Relationship Specialty Start Date End Date Elsewhere, Pcp PCP - General Internal Medicine 05/11/23 09/13/23 documented as of this encounter
--- OUTSIDE RECORDS SUMMARY | 2023-10-05 13:00 | XMS_ITS | Encounter Summary ---
Author Name Unknown Organization [facility] Address [address] [place] [phone] Care Team Providers Care Shell Trim Tool Setter Name Role Phone Elsewhere, Pcp Primary Care Provider Unavailabl e Reason for Visit * Episode Based Medications (Routine) - Authorized Specialty Diagnoses / Procedures Referred By Contac t Referred To Contact Diagnoses Lymphoma Non Hodgkins (HCC) Procedures X Molly Jarquin M.B.BTami, Tani [address] [place] [phone] [address] [place] [address] [place] [phone] Referral ID Status Reason Start Date Expiration Date V isits Requested Visits Authorized [id number] Authorized 05/17/2023 05/16/2025 99 99 Encounter Details Date Type Department Care Team (Late st Contact Info) Description 07/02/2023 10:15 AM CDT Infusion Department of Oncology in [place], [place] [address] [place] [phone] Bety Castro M.D. [address] [place] [phone] Lymphoma Non Hodgkins (HCC) (Primary Dx) Social [...] Score 0 04/25/2020 [facility] - Occupational Stress Questionnaire Answer Date Recorded [...] (Latest Contact Info) Description 10/06/2023 9:04 AM BUMPER MACHINE OPERATOR - 10/06/2023 11:24 AM BUMPER MACHINE OPERATOR Surgery [facility]ST [facility] MAIN OR [address] [place] [phone] Cameron Saenz M.D. [address] [place] [phone] ABDOMINAL EXPLORATION, REMOVAL ABTHERA, POSSBLE BOWEL RESECTION, PROCEED INDICATED 10/11/2023 7:00 AM BUMPER MACHINE OPERATOR Appointment Department of Laboratory Medicine and Pathology, [facility] in [place], [place] [address] [place] [phone] Arti Epstein M.B.B.S. [address] [place] [phone] 10/11/2023 9:00 AM BUMPER MACHINE OPERATOR Office Visit Division of Hematology in [place], [place] [address] [place] [phone] Arti Epstein M.B.B.S. [address] [place] [phone] 10/11/2023 10:00 AM BUMPER MACHINE OPERATOR Infusion Department of Oncology in [place], [place] [address] [place] [phone] Bev Gifford APRN, C.N.P., M.S.N. [address] [place] [phone] 11/19/2023 10:00 AM CDT Office Visit Division of Endocrinology in [place], [place] [address] [place] [phone] [place] APRN, C.N.P., M.S. [address] [place] [phone] 11/19/2023 2:30 PM CDT Comprehensive Visit Division of Hepatobiliary and Pancreas Surgery in [place], [place] [address] [place] [phone] Wesley Hamilton M.D. [address] [place] [phone] Scheduled Procedures Name Priority Associated Diagnoses Date/Ti me LAPAROTOMY - ABDOMINAL WASHOUT Ischemia Intestinal With Stricture (HCC) 10/06/2023 9:04 AM BUMPER MACHINE OPERATOR documented as of this encounter Visit Diagnoses Diagnosis Lymphoma Non Hodgkins (HCC)- Primary Ischemia Intestinal With Stricture (HCC) documented in this encounter Administered Medications Inactive Administered Medications - up to 3 most recent administrations Medication Order MAR Action Action Date Dose Rate Site acetaminophen tablet 650 mg (TYLENOL) 650 mg, oral, Once, On Sat07/02/23 at 1045, For 1 dose, Administer 30 minutes prior to riTUXimab. Given 07/02/2023 11:24 AM CDT 650 mg cycloPHOSphamide 1,500 mg in NaCl 0.9% 350 mL IVPB (CYTOXAN) 1,500 mg (rounded from 1,485 mg = 750 mg/m2 ? 1.98 m2 Treatment Plan BSA from Measured weight), intravenous, at 700 mL/hr, Administer over 30 Minutes, Once, On Sat07/02/23 at 1445, For 1 dose New Bag 07/02/2023 2:46 PM CDT 1,500 mg 700 mL/hr diphenhydrAMINE injection 25 mg (BENADRYL) 25 mg, intravenous, Once, On Sat07/02/23 at 1045, For 1 dose, Administer 30 minutes prior to riTUXimab. Given 07/02/2023 11:24 AM CDT 25 mg DOXOrubicin injection 100 mg (ADRIAMYCIN) 100 mg (rounded from 99 mg = 50 mg/m2 ? 1.98 m2 Treatment Plan BSA from Measured weight), intravenous, Administer over 10 Minutes, Once, On Sat07/02/23 at 1315, For 1 dose, Administer IV push through a free flowing IV of 0.9% NaCL over approximately 10 minutes via Y-site. Protect from light. Given 07/02/2023 2:27 PM CDT 100 mg palonosetron injection 0.25 mg (ALOXI) 0.25 mg, intravenous, Once, On Sat07/02/23 at 1245, For 1 dose Given 07/02/2023 11:34 AM CDT 0.25 mg polatuzumab vedotin-piiq 150 mg in NaCl 0.9% 117.5 mL IVPB (POLIVY) 150 mg (rounded from 145.62 mg = 1.8 mg/kg ? 80.9 kg Treatment plan Measured weight), intravenous, at 235 mL/hr, Administer over 30 Minutes, Once, On Sat07/02/23 at 1245, For 1 dose, Monitor patient for 30 [...] is ready to receive drug. New Bag 07/02/2023 1:44 PM CDT 150 mg 235 mL/hr rituximab-pvvr 700 mg in NaCl 0.9% IVPB (RUXIENCE) 700 mg (rounded from 742.5 mg = 375 mg/m2 ? 1.98 m2 Treatment Plan BSA from Measured weight), intravenous, Once, On Sat07/02/23 at 1115, For 1 dose, Infuse over 90 minutes at 280 mL/hr for 30 minutes; then 560 mL/hr for 60 minutes., Restriction Criteria (Pharmacy will review and approve if criteria met): Meets rituximab algorithm criteria Rate/Dose Change 07/02/2023 12:36 PM CDT 560 mL/hr New Bag 07/02/2023 11:59 AM CDT 700 mg documented in this encounter Additional Health Concerns Infection Onset Date Last Indicated Resolved Time Protective Environment 05/17/2023 05/17/2023 documented as of this encounter Care Teams Shell Trim Tool Setter Relationship Specialty Start Date End Date Elsewhere, Pcp PCP - General Internal Medicine 05/11/23 09/13/23 documented as of this encounter
--- OUTSIDE RECORDS SUMMARY | 2023-10-05 13:00 | XMS_ITS | Encounter Summary ---
Author Name Unknown Organization [facility] Address [address] [place] [address] Care Team Providers Care Dispatcher Tugboat Name Role Phone Elsewhere, Pcp Primary Care Provider Unavailabl e Reason for Visit * Episode Based Medications (Routine) - Authorized Specialty Diagnoses / Procedures Referred By Contac t Referred To Contact Diagnoses Lymphoma Non Hodgkins (HCC) Procedures X Molly Jarquin M.B.BTami, Tani [address] [place] [address] Rst Hem Delta [address] [place] [phone] Referral ID Status Reason Start Date Expiration Date V isits Requested Visits Authorized [id number] Authorized 05/17/2023 05/16/2025 99 99 Encounter Details Date Type Department Care Team (Late st Contact Info) Description 07/03/2023 2:00 PM CDT Infusion Department of Oncology in [place], [place] [address] [place] [phone] Hola Bobo M.D. [address] [place] [phone] Lymphoma Non Hodgkins (HCC) (Primary Dx) Social [...] Answer Date Recorded PHQ-2 Score 0 04/25/2020 [facility] [place] of Occupat ional Health - Occupational Stress [...] place to sleep or slept in a intermediate (including now)? No 01/10/2023 Nutrition Answer Date [...] (Latest Contact Info) Description 10/06/2023 9:04 AM VP STRATEGIC PLANNING - 10/06/2023 11:24 AM VP STRATEGIC PLANNING Surgery RST ROMB MAIN OR [address] [place] [phone] Cameron Saenz M.D. [address] [place] [phone] ABDOMINAL EXPLORATION, REMOVAL ABTHERA, POSSBLE BOWEL RESECTION, PROCEED INDICATED 10/11/2023 7:00 AM VP STRATEGIC PLANNING Appointment Department of Laboratory Medicine and Pathology, [facility], in [place], [place] [address] [place] [phone] Arti Epstein M.B.B.S. [address] [place] [phone] 10/11/2023 9:00 AM VP STRATEGIC PLANNING Office Visit Division of Hematology in [place], [place] [address] [place] [phone] Arti Epstein M.B.B.S. [address] [place] [phone] 10/11/2023 10:00 AM VP STRATEGIC PLANNING Infusion Department of Oncology in [place], [place] [address] [place] [phone] Bev Gifford APRN, C.N.P., M.S.N. [address] [place] [phone] 11/19/2023 10:00 AM CDT Office Visit Division of Endocrinology in [place], [place] [address] [place] [phone] West Mendoza APRN, C.N.P., M.S. [address] [place] [phone] 11/19/2023 2:30 PM CDT Comprehensive Visit Division of Hepatobiliary and Pancreas Surgery in [place], [place] [address] [place] [phone] Wesley Hamilton M.D. [address] [place] [address] Scheduled Procedures Name Priority Associated Diagnoses Date/Ti me LAPAROTOMY - ABDOMINAL WASHOUT Ischemia Intestinal With Stricture (HCC) 10/06/2023 9:04 AM VP STRATEGIC PLANNING documented as of this encounter Visit Diagnoses Diagnosis Lymphoma Non Hodgkins (HCC)- Primary Ischemia Intestinal With Stricture (HCC) documented in this encounter Administered Medications Inactive Administered Medications - up to 3 most recent administrations Medication Order MAR Action Action Date Dose Rate Site pegfilgrastim-jmdb injection 6 mg (FULPHILA) 6 mg, subcutaneous, Once, On Sat07/03/23 at 1330, For 1 dose Given 07/03/2023 1:43 PM CDT 6 mg Left Lower Abdomen documented in this encounter Additional Health Concerns Infection Onset Date Last Indicated Resolved Time Protective Environment 05/17/2023 05/17/2023 documented as of this encounter Care Teams Dispatcher Tugboat Relationship Specialty Start Date End Date Elsewhere, Pcp PCP - General Internal Medicine 05/11/23 09/13/23 documented as of this encounter
--- OUTSIDE RECORDS SUMMARY | 2023-10-05 13:00 | XMS_ITS | Encounter Summary ---
Author Name Unknown Organization [facility] Address [address] [place] [address] Care Team Providers Care Java J2Ee Software Engineer Name Role Phone Elsewhere, Pcp Primary Care Provider Unavailabl e Encounter Details Date Type Department Care Team (Latest Contact Info) Description 07/02/2023 7:30 AM CDT - 07/02/2023 11:59 PM CDT Hospital Encounter Department of Laboratory Medicine and Pathology, [facility] in [place], [place] [address] [place] [address] Bety Castro M.D. [address] [place] [phone] Lymphoma Non Hodgkins (HCC) Discharge Disposition: Home [...] Answer Date Recorded PHQ-2 Score 0 04/25/2020 [facility] [place] of Occupat ional Health - Occupational Stress [...] of 10. 30 tablet 0 05/07/2023 08/07/2023 acyclovir (ZOVIRAX) 400 mg tabletIndications:Pro phylaxis, medical Take 1 tablet (400 mg total) by mouth 2 (two) times a day Indications: Prophylaxis, medical. 60 tablet 0 05/23/2023 07/19/2023 aspirin 81 mg chewable tablet Administer 1 [...] pantoprazole (PROTONIX) 20 mg EC tablet Take 40 mg by mouth every morning before breakfast. 0 07/19/2023 pantoprazole (PROTONIX) 20 mg EC tablet Take [...] 05/07/2023 08/07/2023 documented as of this encounter Plan of Treatment Upcoming Encounters Date Type Department Care Team (Latest Contact Info) Description 10/06/2023 9:04 AM BOILER HOUSE INSPECTOR - 10/06/2023 11:24 AM BOILER HOUSE INSPECTOR Surgery RST ROMB MAIN OR [address] [place] [phone] Cameron Saenz M.D. [address] [place] [phone] ABDOMINAL EXPLORATION, REMOVAL ABTHERA, POSSBLE BOWEL RESECTION, PROCEED INDICATED 10/11/2023 7:00 AM BOILER HOUSE INSPECTOR Appointment Department of Laboratory Medicine and Pathology, [facility], in [place], [place] [address] [place] [phone] Arti Epstein M.B.B.S. [address] [place] [phone] 10/11/2023 9:00 AM BOILER HOUSE INSPECTOR Office Visit Division of Hematology in [place], [place] [address] [place] [phone] Arti Epstein M.B.B.S. [address] [place] [phone] 10/11/2023 10:00 AM BOILER HOUSE INSPECTOR Infusion Department of Oncology in [address] [phone] Bev Gifford APRN, C.N.P., M.S.N. [address] [place] [phone] 11/19/2023 10:00 AM CDT Office Visit Division of Endocrinology in [place], [place] [address] [place] [phone] West Mendoza APRN, C.N.P., M.S. [address] [place] [phone] 11/19/2023 2:30 PM CDT Comprehensive Visit Division of Hepatobiliary and Pancreas Surgery in [address] [phone] Wesley Hamilton M.D. [address] [place] [phone] Scheduled Procedures Name Priority Associated Diagnoses Date/Ti me LAPAROTOMY - ABDOMINAL WASHOUT Ischemia Intestinal With Stricture (HCC) 10/06/2023 9:04 AM BOILER HOUSE INSPECTOR documented as of this encounter Procedures Procedure Name Priority Date/Time Associated Diagnosis Comments CBC WITH DIFFERENTIAL, B Routine 07/02/2023 7:53 AM CDT Lymphoma Non Hodgkins (HCC) COMPREHENSIVE METABOLIC PANEL, S/P Routine 07/02/2023 7:53 AM CDT Lymphoma Non Hodgkins (HCC) documented in this encounter Results * (ABNORMAL) Comprehensive Metabolic Panel (07/02/2023 7:53 AM CDT) Potassium, S 4.5 3.6 - 5.2 mmol/L 07/02/2023 9:04 AM CDT DTL Sodium, S 143 135 - 145 mmol/L 07/02/2023 9:04 AM CDT DTL Chloride, S 102 98 - 107 mmol/L 07/02/2023 9:04 AM CDT DTL Bicarbonate, S 23 22 - 29 mmol/L 07/02/2023 9:04 AM CDT DTL Anion Gap 18(H) 7 - 15 07/02/2023 9:04 AM CDT DTL BUN (Blood Urea Nitrogen), S 13 8 - 24 mg/dL 07/02/2023 9:04 AM CDT DTL Creatinine 0.99 0.74 - 1.35 mg/dL 07/02/2023 9:04 AM CDT DTL Estimated GFR (eGFR) 80 >=60 mL/min/BS A 07/02/2023 9:04 AM CDT DTL Comment: Estimated GFR calculated using the 2020 CKD_EPI creatinine equation. Calcium, Total, S 8.9 8.8 - 10.2 mg/dL 07/02/2023 9:04 AM CDT DTL Glucose, S 77 70 - 140 mg/dL 07/02/2023 9:04 AM CDT DTL Protein, Total, S 5.9(L) 6.3 - 7.9 g/dL 07/02/2023 9:04 AM CDT DTL Albumin, S 3.9 3.5 - 5.0 g/dL 07/02/2023 9:04 AM CDT DTL Aspartate Aminotransferase (AST), S 28 8 - 48 U/L 07/02/2023 9:04 AM CDT DTL Alkaline Phosphatase, S 139(H) 40 - 129 U/L 07/02/2023 9:04 AM CDT DTL Alanine Aminotransferase (ALT), S 22 7 - 55 U/L 07/02/2023 9:04 AM CDT DTL Bilirubin, Total, S 0.2 0.0 - 1.2 mg/dL 07/02/2023 9:04 AM CDT DTL Blood (Blood, Venous) 07/02/2023 7:53 AM CDT 07/02/2023 8:42 AM CDT Bety Castro M.D. LAB BLO OD ADD-ON [facility] [address] [place] [address], [facility] [address] [place] [address] * (ABNORMAL) CBC with Differential, Blood (07/02/2023 7:53 AM CDT) Hemoglobin 10.4(L) 13.2 - 16.6 g/dL 07/02/2023 8:47 AM CDT DTL Hematocrit 34.1(L) 38.3 - 48.6 % 07/02/2023 8:47 AM CDT DTL Erythrocytes 3.97(L) 4.35 - 5.65 x10(12)/L 07/02/2023 8:47 AM CDT DTL MCV 85.9 78.2 - 97.9 fL 07/02/2023 8:47 AM CDT DTL RBC Distrib Width 24.4(H) 11.8 - 14.5 % 07/02/2023 8:47 AM CDT DTL Platelet Count 431(H) 135 - 317 x10(9)/L 07/02/2023 8:47 AM CDT DTL Leukocytes 20.4(H) 3.4 - 9.6 x10(9)/L 07/02/2023 8:47 AM CDT DTL Neutrophils 18.61(H) 1.56 - 6.45 x10(9)/L 07/02/2023 8:47 AM CDT DHPM Lymphocytes 0.70(L) 0.95 - 3.07 x10(9)/L 07/02/2023 8:47 AM CDT DTL Monocytes 0.75 0.26 - 0.81 x10(9)/L 07/02/2023 8:47 AM CDT DTL Eosinophils 0.18 0.03 - 0.48 x10(9)/L 07/02/2023 8:47 AM CDT DTL Basophils 0.18(H) 0.01 - 0.08 x10(9)/L 07/02/2023 8:47 AM CDT DTL Blood (Blood, Venous) 07/02/2023 7:53 AM CDT 07/02/2023 8:19 AM CDT Bety Castro M.D. 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
--- OUTSIDE RECORDS SUMMARY | 2023-10-05 13:00 | XMS_ITS | Encounter Summary ---
Author Name Unknown Organization [facility] Address [address] [place] [address] Care Team Providers Care Bottled Beverage Inspector Name Role Phone Elsewhere, Pcp Primary Care Provider Unavailabl e Reason for Referral * MRI/CAT/PET Scan (Routine) - Closed Specialty Diagnoses / Procedures Referred By Doroteo duron Referred To Contact Diagnoses Lymphoma Non Hodgkins (HCC) Procedures PET CT Skull to Thigh FDG Bety Castro M.D. [address] [place] [address] [facility] Referral ID Status Reason Start Date Expiration Date Visits Re quested Visits Authorized [id number] Closed 07/22/2023 07/21/2024 1 1 GRATED CIRCUIT DESIGN ENGINEER Reason for Visit * Episode Based Medications (Routine) - Authorized Specialty Diagnoses / Procedures Referred By Doroteo duron Referred To Contact Diagnoses Lymphoma Non Hodgkins (HCC) Procedures X Molly Jarquin M.B.B.S., MBeny [address] [place] [address] [address] [place] [phone] Referral ID Status Reason Start Date Expiration Date V isits Requested Visits Authorized [id number] Authorized 05/17/2023 05/16/2025 99 99 Encounter Details Date Type Department Care Team (Late st Contact Info) Description 07/22/2023 3:30 PM INTEGRATED CIRCUIT DESIGN ENGINEER Office Visit Division of Hematology in [place], [place] [address] [place] [address] Bety Castro M.D. [address] [place] [address] Lymphoma Non Hodgkins (HCC) (Primary Dx) Social [...] Sign Reading Time Taken Comments Blood Pressure 108/48 07/22/2023 3:16 PM INTEGRATED CIRCUIT DESIGN ENGINEER Pulse 57 07/22/2023 3:16 PM INTEGRATED CIRCUIT DESIGN ENGINEER Temperature 36 ??C (96.8 ??F) 07/22/2023 3:16 PM INTEGRATED CIRCUIT DESIGN ENGINEER Respiratory Rate - - Oxygen Saturation - - Inhaled Oxygen Concentration - - Weight 78.9 kg (173 lb 15.1 oz) 07/22/2023 3:16 PM INTEGRATED CIRCUIT DESIGN ENGINEER Height 175.2 cm (5' 8.98) 07/22/2023 3:16 PM CS T Body Mass Index 25.7 07/22/2023 3:16 PM INTEGRATED CIRCUIT DESIGN ENGINEER documented in this encounter Progress Notes * Ashutosh Chang M.D. - 07/22/2023 3:30 PM CST This is an attestation note. I saw and evaluated the patient participating in the duncan portions of the out-patient lymphomavisit service. I reviewed the note of Dr. Kitchen and discussed the findings and plan. In addition, I would like to add that even though the interim PET scan after cycle 2before cycle 3 showed excellent responded there was still a concern of residual focal uptake in the3rd portion of the duodenal that if this was residual lymphoma will be a Deauville score of 4. Because of this will proceed with cycle 4 of R-CHOP chemo today before he comes for cycle 5 will repeat another PET scan. GRATED CIRCUIT DESIGN ENGINEER * Bety Castro M.D. - 07/22/2023 3:30 PM CST Progress note (07/22/2023) CHIEF COMPLAINT / REASON FOR VISIT DLBCL-NOS HISTORY OF PRESENT ILLNESS Mr. Lau is a 72 yo man who has been feeling unwell for about 4 weeks with mostly postprandial nausea, vomiting, abdominal pain and inability to tolerate PO intake. Since January 2023 he lost about 40pounds but denies fever, night sweats or palpable lumps. He was hospitalized during mid Aprilt [facility] due to his nausea, vomiting and abdominal discomfort and was found to have sepsis that was initially though to be due to cholecystitis but seems that this was not the case and later felt more likely to be due to duodenal mass causing dilated bile ducts as CT scans showed nonobstructive masslike thickening of the duodenum, predominantly involving the 3rd part of the duodenum with a mildly dilated common bile duct and distended gallbladder, however bedside ultrasound did not show any overt evidence of cholecystitis. During his hospital stay [facility], he had fevers and low hemoglobin in the 8-9 range as well as an ROMEO that improved with fluids. EGD was performed on 04/24/2023 in [facility] which revealed a duodenal necrotizing ulcer which was biopsies however that was read as a necroinflammatory ulcer with duodenal mucosa, acute and chronic inflammation without evidence of active malignancy. After he was treated with PPI and antibiotics despite no source of infection was identifies; he was discharged on 04/27/2023. He was readmitted on 04/29/2023 after he was seen that morning in [facility] and found to be hypotensive with a blood pressure of 78/39, thus he went to [facility] ED where he was hypotensive with SBPin [...] acyclovir, lansoprazole, allopurinol. So far he received 3 cycles of Preston-R-CHP. interim PET scan after cycle 2 before cycle 3 showed excellent response but there was still a concern of residual focal uptake in the 3rd portion of the duodenal that if this was residual lymphoma will be a Deauville score of 4. PMH: Prior CVA, HTN , HLD, thyroids [...] EXAM General: Alert and Orientated, no acute distress. Eyes: no conjunctival icterus, PERRL ENT: Moist mucous membranes, no oral lesions or mucositis Lymph: No evidence of peripheral adenopathy in the cervical, supraclavicular, axillary, or inguinalregions Lungs: Clear to auscultation bilaterally, no wheezes, rales or rhonchi Cardiac: Regular rate and rhythm, no murmur or rubs Abdomen: Soft, nontender, nondistended. No hepatosplenomegaly Extremities: Warm, well perfused, no edema Skin: nonjaundiced Mental: appropriate affect, answers questions [...] tube was removed. -So far he received 3 cycles of Preston-R-CHP. interim PET scan after cycle 2 before cycle 3 showed excellent response but there was still a concern of residual focal uptake in the 3rd portion of the duodenal that if this was residual lymphoma will be a Deauville score of 4. Plan: -Proceed with cycle 4 Preston-R-CHP without dose adjustments as he is doing much better clinically. Rich tolerates PO intake very well and his appetite has improved significantly. He looks much less pale. --he will receive Neulasta the day after treatment -We will obtain PET CT scan prior to cycle 5 as although interim PET CT after 2 cycles showed excellent response, there were some findings questionable for residual disease in the duodenum. RTC in [address] results and evaluation prior to cycle 5 Patient seen with GRATED CIRCUIT DESIGN ENGINEER documented in this encounter Plan of Treatment Upcoming Encounters Date Type Department Care Team (Latest Contact Info) Description 10/06/2023 9:04 AM INTEGRATED CIRCUIT DESIGN ENGINEER - 10/06/2023 11:24 AM INTEGRATED CIRCUIT DESIGN ENGINEER Surgery RST ROMB MAIN OR [address] [place] [phone] Cameron Saenz M.D. [address] [place] [phone] ABDOMINAL EXPLORATION, REMOVAL ABTHERA, POSSBLE BOWEL RESECTION, PROCEED INDICATED 10/11/2023 7:00 AM INTEGRATED CIRCUIT DESIGN ENGINEER Appointment Department of Laboratory Medicine and Pathology, [facility], in [place], [place] [address] [place] [phone] Arti Epstein M.B.B.S. [address] [place] [phone] 10/11/2023 9:00 AM INTEGRATED CIRCUIT DESIGN ENGINEER Office Visit Division of Hematology in [address] [phone] Arti Epstein M.B.B.S. [address] [place] [phone] 10/11/2023 10:00 AM INTEGRATED CIRCUIT DESIGN ENGINEER Infusion Department of Oncology in [address] [phone] Bev Gifford APRN, C.N.P., M.S.N. [address] [place] [phone] 11/19/2023 10:00 AM CDT Office Visit Division of Endocrinology in [place], [place] [address] [place] [phone] West Mendoza APRN, C.N.P., M.S. [address] [place] [phone] 11/19/2023 2:30 PM CDT Comprehensive Visit Division of Hepatobiliary and Pancreas Surgery in [place], [place] [address] [place] [phone] Wesley Hamilton M.D. [address] [place] [address] Scheduled Procedures Name Priority Associated Diagnoses Date/Ti me LAPAROTOMY - ABDOMINAL WASHOUT Ischemia Intestinal With Stricture (HCC) 10/06/2023 9:04 AM INTEGRATED CIRCUIT DESIGN ENGINEER documented as of this encounter Results * PET CT Skull to Thigh FDG (08/09/2023 1:20 PM INTEGRATED CIRCUIT DESIGN ENGINEER) Anatomical Region Laterality Modality Body, Nuclear Medicine PET R ST LOS, PET ARZ LOS, Nuclear Medicine PET FLA LOS, Nuclear Medicine N/A Positron Emission Tomography (PET), Positron Emission Tomography (PET) 08/09/2023 2:43 PM INTEGRATED CIRCUIT DESIGN ENGINEER Impressions 08/09/2023 3:08 PM INTEGRATED CIRCUIT DESIGN ENGINEER 1. Further decrease in FDG uptake involving/adjacent to the 3rd portion of the duodenum. Deauville response criteria= 3 2. FDG uptake of the colon and gallbladder may be related to inflammation. 3. Slight interval increase in small bilateral pleural effusions. Narrative 08/09/2023 3:08 PM INTEGRATED CIRCUIT DESIGN ENGINEER EXAM: ??PET CT SKULL TO THIGH FDG Serum glucose at time of F-18 FDG injection was 69 mg/dL. Patient followed standard dietary/fasting requirements for this exam. RADIOPHARMACEUTICAL/MEDS: Route: intravenous fludeoxyglucose F 18 injection CARE HOME (FDG F-18),10.12 millicurie TECHNIQUE: ??F-18 FDG PET/CT [...] RADIOPHARMACEUTICAL/MEDS: Route: intravenous fludeoxyglucose F 18 injection CARE HOME (FDG F-18),10.12 millicurie TECHNIQUE: F-18 FDG PET/CT [...] interval increase in small bilateral pleural effusions. Beyt Castro M.D. 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
--- OUTSIDE RECORDS SUMMARY | 2023-10-05 13:00 | XMS_ITS | Encounter Summary ---
Author Name Unknown Organization [facility] Address [address] [place] [address] Care Team Providers Care Timber Management Assistant Name Role Phone Elsewhere, Pcp Primary Care Provider Unavailabl e Reason for Visit * Reason Onset Date Comments Pre-visit Intake 07/19/2023 Encounter Details Date Type Department Care Team (Latest Contact Info) Description 07/19/2023 9:45 AM STEAM TRAP MAN Clinical Communication Virtual Review in [place], [place] 200 [place], [place] [phone] Pre-visit Intake Social History Tobacco Use Types Packs/Day Years Used Date Smoking Tobacco: Former Cigarettes 1 22 Q uit: 02/07/1989 Passive Smoke Exposure: Never Smokeless Tobacco: Former Snuff Quit: 04/18/2023 Tobacco Cessation:Counseling Given: Not Answered Alcohol Use Standard Drinks/Week Comments Yes 3 [...] Answer Date Recorded PHQ-2 Score 0 04/25/2020 [facility] - Occupational Stress Questionnaire Answer [...] (Latest Contact Info) Description 10/06/2023 9:04 AM STEAM TRAP MAN - 10/06/2023 11:24 AM STEAM TRAP MAN Surgery RST ROMB MAIN OR [address] [place] [address] Cameron Saenz M.D. [address] [place] [address] ABDOMINAL EXPLORATION, REMOVAL ABTHERA, POSSBLE BOWEL RESECTION, PROCEED INDICATED 10/11/2023 7:00 AM STEAM TRAP MAN Appointment Department of Laboratory Medicine and Pathology, [facility], in [place], [place] [address] [place] [phone] Arti Epstein M.B.B.S. [address] [place] [phone] 10/11/2023 9:00 AM STEAM TRAP MAN Office Visit Division of Hematology in [place], [place] [address] [place] [phone] Arti Epstein M.B.B.S. [address] [place] [phone] 10/11/2023 10:00 AM STEAM TRAP MAN Infusion Department of Oncology in [place], [place] [address] [place] [phone] Bev Gifford APRN, C.N.P., M.S.N. [address] [place] [phone] 11/19/2023 10:00 AM CDT Office Visit Division of Endocrinology in [address] [phone] West Mendoza APRN, C.N.P., M.S. [address] [place] [phone] 11/19/2023 2:30 PM CDT Comprehensive Visit Division of Hepatobiliary and Pancreas Surgery in [address] [phone] Wesley Hamilton M.D. [address] [place] [phone] Scheduled Procedures Name Priority Associated Diagnoses Date/Ti me LAPAROTOMY - ABDOMINAL WASHOUT Ischemia Intestinal With Stricture (HCC) 10/06/2023 9:04 AM STEAM TRAP MAN documented as of this encounter Visit Diagnoses Not on filedocumented in this encounter Additional Health Concerns Infection Onset Date Last Indicated Resolved Time Protective Environment 05/17/2023 05/17/2023 documented as of this encounter Care Teams Timber Management Assistant Relationship Specialty Start Date End Date Elsewhere, Pcp PCP - General Internal Medicine 05/11/23 09/13/23 documented as of this encounter
--- OUTSIDE RECORDS SUMMARY | 2023-10-05 13:00 | XMS_ITS | Encounter Summary ---
Author Name Unknown Organization [facility] Address [address] [place] [address] Care Team Providers Care Gas Leak Tester Name Role Phone Elsewhere, Pcp Primary Care Provider Unavailabl e Reason for Visit * Reason Onset Date Comments Patient update 07/18/2023 Encounter Details Date Type Department Care Team (Latest Contact Info) Description 07/18/2023 Clinical Communication Division of Hematology in [place], [place] [address] [place] [address] Bety Castro M.D. [address] [place] [address] Patient update Social History Tobacco Use Types Packs/Day Years [...] How often do you attend chur or sikh services? Never 01/10/2023 Do you belong to [...] Answer Date Recorded PHQ-2 Score 0 04/25/2020 [facility] of Occupat ional Health - Occupational Stress [...] place to sleep or slept in a nursing home (including now)? No 01/10/2023 Nutrition Answer [...] (Latest Contact Info) Description 10/06/2023 9:04 AM SHIP MATE - 10/06/2023 11:24 AM SHIP MATE Surgery RST ROMB MAIN OR [address] [place] [phone] Cameron Saenz M.D. [address] [place] [phone] ABDOMINAL EXPLORATION, REMOVAL ABTHERA, POSSBLE BOWEL RESECTION, PROCEED INDICATED 10/11/2023 7:00 AM SHIP MATE Appointment Department of Laboratory Medicine and Pathology, [facility], in [place], [place] [address] [place] [phone] Arti Epstein M.B.B.S. [address] [place] [phone] 10/11/2023 9:00 AM SHIP MATE Office Visit Division of Hematology in [place], [place] [address] [place] [phone] Arti Epstein M.B.B.S. [address] [place] [phone] 10/11/2023 10:00 AM SHIP MATE Infusion Department of Oncology in [place], [place] [address] [place] [phone] Bev Gifford APRN, C.N.P., M.S.N. [address] [place] [phone] 11/19/2023 10:00 AM CDT Office Visit Division of Endocrinology in [place], [place] [address] [place] [phone] West Mendoza APRN, C.N.P., M.S. [address] [place] [phone] 11/19/2023 2:30 PM CDT Comprehensive Visit Division of Hepatobiliary and Pancreas Surgery in [place], [place] [address] [place] [phone] Wesley Hamilton M.D. [address] [place] [phone] Scheduled Procedures Name Priority Associated Diagnoses Date/Ti me LAPAROTOMY - ABDOMINAL WASHOUT Ischemia Intestinal With Stricture (HCC) 10/06/2023 9:04 AM SHIP MATE documented as of this encounter Visit Diagnoses Not on filedocumented in this encounter Additional Health Concerns Infection Onset Date Last Indicated Resolved Time Protective Environment 05/17/2023 05/17/2023 documented as of this encounter Care Teams Gas Leak Tester Relationship Specialty Start Date End Date Elsewhere, Pcp PCP - General Internal Medicine 05/11/23 09/13/23 documented as of this encounter
--- OUTSIDE RECORDS SUMMARY | 2023-10-05 13:00 | XMS_ITS | Encounter Summary ---
Author Name Unknown Organization [facility] Address [address] [place] [address] Care Team Providers Care Motor Winder Name Role Phone Elsewhere, Pcp Primary Care Provider Unavailabl e Reason for Visit * Reason Onset Date Comments EST HEM LYMPH CHEMO 07/22 and 08/1207/02/2023 Encounter Details Date Type Department Care Team (Latest Contact Info) Description 07/02/2023 Clinical Communication Division of Hematology in [place], [place] [address] [place] [address] Bety Castro M.D. [address] [place] [phone] EST HEM LYMPH CHEMO 07/22 and 08/12 Social History Tobacco Use Types Packs/Day Years [...] PHQ-2 Score 0 04/25/2020 [facility] of Occupat ional Health - Occupational Stress [...] place to sleep or slept in a residential (including now)? No 01/10/2023 Nutrition Answer Date [...] (Latest Contact Info) Description 10/06/2023 9:04 AM CLINICAL TRIALS SPECIALIST - 10/06/2023 11:24 AM CLINICAL TRIALS SPECIALIST Surgery RST ROMB MAIN OR [address] [place] [phone] Cameron Saenz M.D. [address] [place] [phone] ABDOMINAL EXPLORATION, REMOVAL ABTHERA, POSSBLE BOWEL RESECTION, PROCEED INDICATED 10/11/2023 7:00 AM CLINICAL TRIALS SPECIALIST Appointment Department of Laboratory Medicine and Pathology, [facility], in [place], [place] [address] [place] [phone] Arti Epstein M.B.B.S. [address] [place] [phone] 10/11/2023 9:00 AM CLINICAL TRIALS SPECIALIST Office Visit Division of Hematology in [place], [place] [address] [place] [phone] Arti Epstein M.B.B.S. [address] [place] [phone] 10/11/2023 10:00 AM CLINICAL TRIALS SPECIALIST Infusion Department of Oncology in [place], [place] [address] [place] [phone] Bev Gifford APRN, C.N.P., M.S.N. [address] [place] [phone] 11/19/2023 10:00 AM CDT Office Visit Division of Endocrinology in [place], [place] [address] [place] [phone] West Mendoza APRN, C.N.P., M.S. [address] [place] [phone] 11/19/2023 2:30 PM CDT Comprehensive Visit Division of Hepatobiliary and Pancreas Surgery in [place], [place] [address] [place] [phone] Wesley Hamilton M.D. [address] [place] [phone] Scheduled Procedures Name Priority Associated Diagnoses Date/Ti me LAPAROTOMY - ABDOMINAL WASHOUT Ischemia Intestinal With Stricture (HCC) 10/06/2023 9:04 AM CLINICAL TRIALS SPECIALIST documented as of this encounter Visit Diagnoses Not on filedocumented in this encounter Additional Health Concerns Infection Onset Date Last Indicated Resolved Time Protective Environment 05/17/2023 05/17/2023 documented as of this encounter Care Teams Motor Winder Relationship Specialty Start Date End Date Elsewhere, Pcp PCP - General Internal Medicine 05/11/23 09/13/23 documented as of this encounter
--- OUTSIDE RECORDS SUMMARY | 2023-10-05 13:00 | XMS_ITS | Encounter Summary ---
Author Name Unknown Organization [facility] Address [address] [place] [address] Care Team Providers Care Slide Forming Machine Tender Name Role Phone Elsewhere, Pcp Primary Care Provider Unavailabl e Reason for Visit * Reason Onset Date Comments Error 09/17/2023 * Episode Based Medications (Routine) - Authorized Specialty Diagnoses / Procedures Referred By Conttracy t Referred To Contact Diagnoses Lymphoma Non Hodgkins (HCC) Procedures X Molly Jarquin M.B.B.S., MBeny [address] [place] [address] Rst Hem [place] [address] [place] [phone] Referral ID Status Reason Start Date Expiration Date V isits Requested Visits Authorized [id number] Authorized 05/17/2023 05/16/2025 99 99 Encounter Details Date Type Department Care Team (Late st Contact Info) Description 07/01/2023 3:30 PM CDT Virtual Visit Division of Hematology in [place], [place] [address] [place] [phone] Bety Castro M.D. [address] [place] [phone] ERRONEOUS ENCOUNTER--DISREGARD (Primary Dx); Lymphoma Non Hodgkins (HCC) Social History Tobacco Use Types Packs/Day Years Used Date Smoking Tobacco: Former Cigarettes 09 30 Q uit: 02/07/1989 Passive Smoke Exposure: Never Smokeless Tobacco: Former Snuff Quit: 04/18/2023 Alcohol Use Standard Drinks/Week Comments Yes 3 (1 standard drink = 0.6 oz pur e alcohol) [facility] Utilities Answer Date Recorded In the [...] often do you attend chur ch or synagogue services? Never 01/10/2023 Do you belong to any clubs o r organizations such as christianity groups, unions, fraternal or athletic groups, or [...] Answer Date Recorded PHQ-2 Score 0 04/25/2020 [facility] - Occupational Stress Questionnaire Answer Date Recorded [...] your living situation today? [facility] 09/15/2023 Education Answer [...] as of this encounter Progress Notes * Trisha Soto - 07/01/2023 3:30 PM CDT This encounter was created in error - please disregard. ISH LANGUAGE LECTURER documented in this encounter Plan of Treatment Upcoming Encounters Date Type Department Care Team (Latest Contact Info) Description 10/06/2023 9:04 AM SPANISH LANGUAGE LECTURER - 10/06/2023 11:24 AM SPANISH LANGUAGE LECTURER Surgery RST ROMB MAIN OR [address] [place] [phone] Cameron Saenz M.D. [address] [place] [phone] ABDOMINAL EXPLORATION, REMOVAL ABTHERA, POSSBLE BOWEL RESECTION, PROCEED INDICATED 10/11/2023 7:00 AM SPANISH LANGUAGE LECTURER Appointment Department of Laboratory Medicine and Pathology, [facility], in [address] [phone] Arti Epstein M.B.B.S. [address] [place] [phone] 10/11/2023 9:00 AM SPANISH LANGUAGE LECTURER Office Visit Division of Hematology in [address] [phone] Arti Epstein M.B.B.S. [address] [place] [phone] 10/11/2023 10:00 AM SPANISH LANGUAGE LECTURER Infusion Department of Oncology in [address] [phone] Bev Gifford APRN, C.N.P., M.S.N. [address] [place] [phone] 11/19/2023 10:00 AM CDT Office Visit Division of Endocrinology in [place], [place] [address] [place] [phone] West Mendoza APRN, C.NMark., M.S. [address] [place] [phone] 11/19/2023 2:30 PM CDT Comprehensive Visit Division of Hepatobiliary and Pancreas Surgery in [place], [place] [address] [place] [phone] Wesley Hamilton M.D. [address] [place] [phone] Scheduled Procedures Name Priority Associated Diagnoses Date/Ti me LAPAROTOMY - ABDOMINAL WASHOUT Ischemia Intestinal With Stricture (HCC) 10/06/2023 9:04 AM SPANISH LANGUAGE LECTURER documented as of this encounter Results * [...] Bety Castro M.D. LAB BLO OD ADD-ON [facility] [address] [place] [address], [facility] [address] [place] [address] * (ABNORMAL) CBC with Differential, Blood (07/02/2023 [...] Bety Castro M.D. 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
--- OUTSIDE RECORDS SUMMARY | 2023-10-05 13:01 | XMS_ITS | Encounter Summary ---
Author Name Unknown Organization [facility] Address [address] [place] [address] Care Team Providers Care Restaurant Line Server Name Role Phone Elsewhere, Pcp Primary Care Provider Unavailabl e Reason for Visit * Reason Onset Date Comments Nausea for three days 06/25/2023 Encounter Details Date Type Department Care Team (Latest Contact Info) Description 06/25/2023 Clinical Communication Division of Hematology in [place], [place] [address] [place] [address] Bety Castro M.D. [address] [place] [phone] Nausea for three days Social History Tobacco Use Types Packs/Day Years [...] any clubs o r organizations such as muslim groups, unions, fraternal or athletic groups, or [...] Answer Date Recorded PHQ-2 Score 0 04/25/2020 [facility] of Occupat ional Health - Occupational [...] (Latest Contact Info) Description 10/06/2023 9:04 AM WIRE WELDER - 10/06/2023 11:24 AM WIRE WELDER Surgery RST ROMB MAIN OR [address] [place] [phone] Cameron Saenz M.D. [address] [place] [phone] ABDOMINAL EXPLORATION, REMOVAL ABTHERA, POSSBLE BOWEL RESECTION, PROCEED INDICATED 10/11/2023 7:00 AM WIRE WELDER Appointment Department of Laboratory Medicine and Pathology, [facility], in [place], [place] [address] [place] [phone] Arti Epstein M.B.B.S. [address] [place] [phone] 10/11/2023 9:00 AM WIRE WELDER Office Visit Division of Hematology in [place], [place] [address] [place] [phone] Arti Esptein M.B.B.S. [address] [place] [phone] 10/11/2023 10:00 AM WIRE WELDER Infusion Department of Oncology in [place], [place] [address] [place] [phone] Bev Gifford APRN, C.N.P., M.S.N. [address] [place] [phone] 11/19/2023 10:00 AM CDT Office Visit Division of Endocrinology in [place], [place] [address] [place] [phone] West Mendoza APRN C.N.P., M.S. [address] [place] [phone] 11/19/2023 2:30 PM CDT Comprehensive Visit Division of Hepatobiliary and Pancreas Surgery in [place], [place] [address] [place] [phone] Wesley Hamilton M.D. [address] [place] [phone] Scheduled Procedures Name Priority Associated Diagnoses Date/Ti me LAPAROTOMY - ABDOMINAL WASHOUT Ischemia Intestinal With Stricture (HCC) 10/06/2023 9:04 AM WIRE WELDER documented as of this encounter Visit Diagnoses Not on filedocumented in this encounter Additional Health Concerns Infection Onset Date Last Indicated Resolved Time Protective Environment 05/17/2023 05/17/2023 documented as of this encounter Care Teams Restaurant Line Server Relationship Specialty Start Date End Date Elsewhere, Pcp PCP - General Internal Medicine 05/11/23 09/13/23 documented as of this encounter
--- OUTSIDE RECORDS SUMMARY | 2023-10-05 13:01 | XMS_ITS | Encounter Summary ---
Author Name Unknown Organization [facility] Address [address] [place] [address] Care Team Providers Care Airline Manager Name Role Phone Elsewhere, Pcp Primary Care Provider Unavailabl e Reason for Visit * Reason Comments Injections Pegfilgrastrim * Episode Based Medications (Routine) - Authorized Specialty Diagnoses / Procedures Referred By Doroteo duron Referred To Contact Diagnoses Lymphoma Non Hodgkins (HCC) Procedures X Molly Jarquin M.B.BJohannaSJohanna, MBeny [address] [place] [address] Rst Hem [place] [address] [place] [phone] Referral ID Status Reason Start Date Expiration Date V isits Requested Visits Authorized [id number] Authorized 05/17/2023 05/16/2025 99 99 Encounter Details Date Type Department Care Team (Late st Contact Info) Description 06/11/2023 3:00 PM CDT Infusion Department of Infusion Therapy in [address] [phone] Bety Castro M.D. [address] [place] [address] [phone] Lymphoma Non Hodgkins (HCC) (Primary Dx) Social [...] often do you attend chur ch or worship services? Never 01/10/2023 Do you belong to [...] Answer Date Recorded PHQ-2 Score 0 04/25/2020 [facility] of Occupat ional [facility] - Occupational Stress Questionnaire Answer [...] Sign Reading Time Taken Comments Blood Pressure 107/44 06/11/2023 2:50 PM CDT Pulse 64 06/11/2023 2:50 PM CDT Temperature 36.3 ??C (97.3 ??F) 06/11/2023 2:50 PM CD T Respiratory Rate 18 06/11/2023 3:11 PM CDT Oxygen Saturation 98% 06/11/2023 2:50 PM CDT Inhaled Oxygen Concentration - - Weight - - Height - - Body Mass Index - - documented in this encounter Plan of Treatment Upcoming Encounters Date Type Department Care Team (Latest Contact Info) Description 10/06/2023 9:04 AM CLIENT SOLUTIONS MANAGER - 10/06/2023 11:24 AM CLIENT SOLUTIONS MANAGER Surgery RST ROMB MAIN OR [address] [place] [phone] Cameron Saenz M.D. [address] [place] [address] [phone] ABDOMINAL EXPLORATION, REMOVAL ABTHERA, POSSBLE BOWEL RESECTION, PROCEED INDICATED 10/11/2023 7:00 AM CLIENT SOLUTIONS MANAGER Appointment Department of Laboratory Medicine and Pathology, [facility], in [place], [place] [address] [place] [phone] Arti Epstein M.B.B.S. [address] [place] [phone] 10/11/2023 9:00 AM CLIENT SOLUTIONS MANAGER Office Visit Division of Hematology in [place], [place] [address] [place] [phone] Arti Epstein M.B.B.S. [address] [place] [phone] 10/11/2023 10:00 AM CLIENT SOLUTIONS MANAGER Infusion Department of Oncology in [place], [place] [address] [place] [phone] Bev Gifford APRN, C.N.P., M.S.N. [address] [place] [phone] 11/19/2023 10:00 AM CDT Office Visit Division of Endocrinology in [place], [place] [address] [place] [phone] West Mendoza APRN, C.N.P., M.S. [address] [place] [phone] 11/19/2023 2:30 PM CDT Comprehensive Visit Division of Hepatobiliary and Pancreas Surgery in [place], [place] [address] [place] [phone] Wesley Hamilton M.D. [address] [place] [phone] Scheduled Procedures Name Priority Associated Diagnoses Date/Ti me LAPAROTOMY - ABDOMINAL WASHOUT Ischemia Intestinal With Stricture (HCC) 10/06/2023 9:04 AM CLIENT SOLUTIONS MANAGER documented as of this encounter Visit Diagnoses Diagnosis Lymphoma Non Hodgkins (HCC)- Primary Ischemia Intestinal With Stricture (HCC) documented in this encounter Administered Medications Inactive Administered Medications - up to 3 most recent administrations Medication Order MAR Action Action Date Dose Rate Site pegfilgrastim-jmdb injection 6 mg (FULPHILA) 6 mg, subcutaneous, Once, On Sat06/11/23 at 1515, For 1 dose Given 06/11/2023 2:55 PM CDT 6 mg Right Lower Abdomen documented in this encounter Additional Health Concerns Infection Onset Date Last Indicated Resolved Time Protective Environment 05/17/2023 05/17/2023 documented as of this encounter Care Teams Airline Manager Relationship Specialty Start Date End Date Elsewhere, Pcp PCP - General Internal Medicine 05/11/23 09/13/23 documented as of this encounter
--- OUTSIDE RECORDS SUMMARY | 2023-10-05 13:01 | XMS_ITS | Encounter Summary ---
Author Name Unknown Organization [facility] Address [address] [place] [address] Care Team Providers Care Nc Machinist Name Role Phone Elsewhere, Pcp Primary Care Provider Unavailabl e Encounter Details Date Type Department Care Team (Latest Contact Info) Description 06/27/2023 10:00 AM CDT Clinical Communication Virtual Review in [address] [phone] Social History Tobacco Use Types Packs/Day Years [...] Answer Date Recorded PHQ-2 Score 0 04/25/2020 [facility]ational Stress Questionnaire Answer Date [...] place to sleep or slept in a fci (including now)? No 01/10/2023 Nutrition Answer Date [...] (Latest Contact Info) Description 10/06/2023 9:04 AM SIZER MACHINE - 10/06/2023 11:24 AM SIZER MACHINE Surgery RST ROMB MAIN OR [address] [place] [phone] Cameron Saenz M.D. [address] [place] [phone] ABDOMINAL EXPLORATION, REMOVAL ABTHERA, POSSBLE BOWEL RESECTION, PROCEED INDICATED 10/11/2023 7:00 AM SIZER MACHINE Appointment Department of Laboratory Medicine and Pathology, [facility], in [place], [place] [address] [place] [phone] Arti Epstein M.B.B.S. [address] [place] [phone] 10/11/2023 9:00 AM SIZER MACHINE Office Visit Division of Hematology in [place], [place] [address] [place] [phone] Arti Epstein M.B.B.S. [address] [place] [phone] 10/11/2023 10:00 AM SIZER MACHINE Infusion Department of Oncology in [place], [place] [address] [place] [phone] Bev Gifford APRN, C.N.P., M.S.N. [address] [place] [phone] 11/19/2023 10:00 AM CDT Office Visit Division of Endocrinology in [place], [place] [address] [place] [phone] West Mendoza APRN, C.N.P., M.S. [address] [place] [phone] 11/19/2023 2:30 PM CDT Comprehensive Visit Division of Hepatobiliary and Pancreas Surgery in [address] [phone] Wesley Hamilton M.D. [address] [place] [address] [phone] Scheduled Procedures Name Priority Associated Diagnoses Date/Ti me LAPAROTOMY - ABDOMINAL WASHOUT Ischemia Intestinal With Stricture (HCC) 10/06/2023 9:04 AM SIZER MACHINE documented as of this encounter Visit Diagnoses Not on filedocumented in this encounter Additional Health Concerns Infection Onset Date Last Indicated Resolved Time Protective Environment 05/17/2023 05/17/2023 documented as of this encounter Care Teams Nc Machinist Relationship Specialty Start Date End Date Elsewhere, Pcp PCP - General Internal Medicine 05/11/23 09/13/23 documented as of this encounter
--- OUTSIDE RECORDS SUMMARY | 2023-10-05 13:01 | XMS_ITS | Encounter Summary ---
Author Name Unknown Organization [facility] Address [address] [place] [phone] Care Team Providers Care Endocrinologist Name Role Phone Elsewhere, Pcp Primary Care Provider Unavailabl e Reason for Visit * Reason Onset Date Comments EST Lymphoma chemo 07/0106/10/2023 Encounter Details Date Type Department Care Team (Latest Contact Info) Description 06/10/2023 Clinical Communication Division of Hematology in [place], [place] [address] [place] [address] Bety Castro M.D. [address] [place] [phone] EST Lymphoma chemo 07/01 Social History Tobacco Use Types Packs/Day Years [...] Answer Date Recorded PHQ-2 Score 0 04/25/2020 [facility] of Occupat ional Health - Occupational Stress [...] (Latest Contact Info) Description 10/06/2023 9:04 AM CODIFIER - 10/06/2023 11:24 AM CODIFIER Surgery [facility] MAIN OR [address] [place] [address] [phone] Cameron Saenz M.D. [address] [place] [phone] ABDOMINAL EXPLORATION, REMOVAL ABTHERA, POSSBLE BOWEL RESECTION, PROCEED INDICATED 10/11/2023 7:00 AM CODIFIER Appointment Department of Laboratory Medicine and Pathology, [facility], in [place], [place] [address] [place] [phone] Arti Epstein M.B.B.S. [address] [place] [phone] 10/11/2023 9:00 AM CODIFIER Office Visit Division of Hematology in [place], [place] [address] [place] [phone] Arti Epstein M.B.B.S. [address] [place] [phone] 10/11/2023 10:00 AM CODIFIER Infusion Department of Oncology in [place], [place] [address] [place] [phone] Bev Gifford APRN, C.N.P., M.S.N. [address] [place] [phone] 11/19/2023 10:00 AM CDT Office Visit Division of Endocrinology in [place], [place] [address] [place] [phone] West Mendoza APRN, C.N.P., M.S. [address] [place] [phone] 11/19/2023 2:30 PM CDT Comprehensive Visit Division of Hepatobiliary and Pancreas Surgery in [place], [place] [address] [place] [phone] Wesley Hamilton M.D. [address] [place] [phone] Scheduled Procedures Name Priority Associated Diagnoses Date/Ti me LAPAROTOMY - ABDOMINAL WASHOUT Ischemia Intestinal With Stricture (HCC) 10/06/2023 9:04 AM CODIFIER documented as of this encounter Visit Diagnoses Diagnosis Lymphoma Non Hodgkins (HCC)- Primary Ischemia Intestinal With Stricture (HCC) documented in this encounter Additional Health Concerns Infection Onset Date Last Indicated Resolved Time Protective Environment 05/17/2023 05/17/2023 documented as of this encounter Care Teams Endocrinologist Relationship Specialty Start Date End Date Elsewhere, Pcp PCP - General Internal Medicine 05/11/23 09/13/23 documented as of this encounter
--- OUTSIDE RECORDS SUMMARY | 2023-10-05 13:01 | XMS_ITS | Encounter Summary ---
Author Name Unknown Organization [facility] Address [address] [place] [address] Care Team Providers Care Lead [employer]man [employer] Name Role Phone Elsewhere, Pcp Primary Care Provider Unavailabl e Reason for Visit * Reason Onset Date Comments External Lab Entry 06/19/2023 Encounter Details Date Type Department Care Team (Latest Contact Info) Description 06/20/2023 Clinical Communication Division of Hematology in [place], [place] [address] [place] [address] Bety Castro M.D. [address] [place] [phone] External Lab Entry Social History Tobacco Use [...] How often do you attend chur or gnosticism services? Never 01/10/2023 Do you belong to [...] Date Recorded PHQ-2 Score 0 04/25/2020 [facility] of Occupat ional Health - Occupational Stress [...] Encounter - Marisol Gomez R.N., O.C.N. - 06/21/2023 3:34 PM CDT SUBJECTIVE CHIEF COMPLAINT / REASON FOR CALL External Lab Entry Stage IV double expressor germinal center DLBCL - Preston-R-CHP cycle 2 administered on 06/10/23 - Fulphila 06/11/23 Test Result Information: Outside labs collected 06/19/23 reviewed and entered. These labs have been scanned in chart. 06/19/23 13:44 EXT Hemoglobin 8.7 (E) EXT Hematocrit 28.2 (E) EXT Platelet Count 221 (E) EXT WBC 1.12 (E) EXT Lymphs Absolute 0.2 (E) EXT Absolute Neutrophil Count 0.6 (E) (E): External lab result Patient phoned with labs. He had seen his labs already. Denzel is feeling well except for some fatiguewhich causes him to take a nap. He reports eating well and has regular bowel movements. He denies any fevers. Neutropenic precautions discussed with patient including good handwashing and oral hygiene, use of high filter mask, avoiding congested public areas and others with upper respiratory symptoms. Patient instructed to be evaluated urgently with fever of 101 F or higher, or a temperature of 100.4 F formore than one hour, or shaking chills regardless of temperature. Disposition/Recommendation: self-care is appropriate at this time, patient encouraged to call back with questions Information/Education: patient/caller able to teach back Caller agreeable to plan of care: yes * Telephone Encounter - Kayla Mcmahon - 06/20/2023 9:16 AM CDT Outside labs collected on 06/19/2023 have been received. The fax has been scanned into the patient record via [employer], and the CBC results are as noted below. Hemoglobin: 8.7 Hematocrit: 28.2 WBC: 1.12 ANC: 0.6 Platelets: 221 Please note: Are there additional labs reported on the outside report? No documented in this encounter Plan of Treatment Upcoming Encounters Date Type Department Care Team (Latest Contact Info) Description 10/06/2023 9:04 AM LACQUER MACHINE FEEDER - 10/06/2023 11:24 AM LACQUER MACHINE FEEDER Surgery [facility]ST ROM MAIN OR [address] [place] [phone] Cameron Saenz M.D. [address] [place] [phone] ABDOMINAL EXPLORATION, REMOVAL ABTHERA, POSSBLE BOWEL RESECTION, PROCEED INDICATED 10/11/2023 7:00 AM LACQUER MACHINE FEEDER Appointment Department of Laboratory Medicine and Pathology, [facility], in [place], [place] [address] [place] [phone] Arti Epstein M.B.B.S. [address] [place] [phone] 10/11/2023 9:00 AM LACQUER MACHINE FEEDER Office Visit Division of Hematology in [place], [place] [address] [place] [phone] Arti Epstein M.BJohannaB.S. [address] [place] [phone] 10/11/2023 10:00 AM LACQUER MACHINE FEEDER Infusion Department of Oncology in [place], [place] [address] [place] [address] [phone] Bev Gifford APRN, C.N.P., M.S.N. [address] [place] [phone] 11/19/2023 10:00 AM CDT Office Visit Division of Endocrinology in [place], [place] [address] [place] [phone] West Mendoza APRN, Lola.N.P., M.S. [address] [place] [phone] 11/19/2023 2:30 PM CDT Comprehensive Visit Division of Hepatobiliary and Pancreas Surgery in [place], [place] [address] [place] [phone] Wesley Hamilton M.D. [address] [place] [phone] Scheduled Procedures Name Priority Associated Diagnoses Date/Ti me LAPAROTOMY - ABDOMINAL WASHOUT Ischemia Intestinal With Stricture (HCC) 10/06/2023 9:04 AM LACQUER MACHINE FEEDER documented as of this encounter Procedures Procedure Name Priority Date/Time Associated Diagnosis Comments HEMATOLOGY/ONCOLOGY - BLOOD, EXTERNAL LAB RESULTS Routine 06/19/2023 1:44 PM CDT documented in this encounter Results * Hematology/Oncology - Blood, External Lab Results (06/19/2023 1:44 PM CDT) EXT Hemoglobin 8.7 SCANNED REPORT EXT Hematocrit 28.2 SCANNED REPORT EXT Leukocytes 1.12 SCANNED REPORT EXT Absolute Neutrophil Count 0.6 SCANNED REPORT EXT Lymphs Absolute 0.2 SCANNED REPORT EXT Platelet Count 221 SCANNED REPORT Blood 06/19/2023 1:44 PM CDT Historical Provider LAB BLOOD NON ADD-ON SCANNED REPORT documented in this encounter Visit Diagnoses Not on filedocumented in this encounter Additional Health Concerns Infection Onset Date Last Indicated Resolved Time Protective Environment 05/17/2023 05/17/2023 documented as of this encounter Care Teams Lead Pressman [employer] Relationship Specialty Start Date End Date Elsewhere, Pcp PCP - General Internal Medicine 05/11/23 09/13/23 documented as of this encounter
--- OUTSIDE RECORDS SUMMARY | 2023-10-05 13:01 | XMS_ITS | Encounter Summary ---
Author Name Unknown Organization [facility] Address [address] [place] [address] Care Team Providers Care Draw Bench Operator Helper Name Role Phone Elsewhere, Pcp Primary Care Provider Unavailabl e Reason for Referral * MRI/CAT/PET Scan (Routine) - Closed Specialty Diagnoses / Procedures Referred By Doroteo duron Referred To Contact Diagnoses Lymphoma Non Hodgkins (HCC) Procedures PET CT Skull to Thigh FDG Bety Castro M.D. [address] [place] [phone] [facility] Referral ID Status Reason Start Date Expiration Date Visits Re quested Visits Authorized [id number] Closed 06/10/2023 06/09/2024 1 1 Reason for Visit * MRI/CAT/PET Scan (Routine) - Closed Specialty Diagnoses / Procedures Referred By Doroteo duron Referred To Contact Diagnoses Lymphoma Non Hodgkins (HCC) Procedures PET CT Skull to Thigh FDG Bety Castro M.D. [address] [place] [phone] [facility] Referral ID Status Reason Start Date Expiration Date Visits Re quested Visits Authorized [id number] Closed 06/10/2023 06/09/2024 1 1 Encounter Details Date Type Department Care Team (Latest Contact Info) Description 06/28/2023 9:28 AM CDT - 06/28/2023 11:59 PM CDT Hospital Encounter Department of Radiology, [facility], in [place], [place] 200 [place] [address] Bety Castro M.D. 200 [place] [phone] Lymphoma Non Hodgkins (HCC) Discharge Disposition: Home [...] often do you attend chur ch or anabaptist services? 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 0 07/19/2023 predniSONE (DELTASONE) 50 mg tabletIndications:Lym phoma Non [...] (Latest Contact Info) Description 10/06/2023 9:04 AM DIRECTOR OF DESIGN - 10/06/2023 11:24 AM DIRECTOR OF DESIGN Surgery [facility] MAIN OR [address] [place] [phone] Cameron Saenz M.D. [address] [place] [phone] ABDOMINAL EXPLORATION, REMOVAL ABTHERA, POSSBLE BOWEL RESECTION, PROCEED INDICATED 10/11/2023 7:00 AM DIRECTOR OF DESIGN Appointment Department of Laboratory Medicine and Pathology, [facility] in [place], [place] [address] [place] [phone] Arti Epstein M.B.B.S. [address] [place] [phone] 10/11/2023 9:00 AM DIRECTOR OF DESIGN Office Visit Division of Hematology in [address] [phone] Arti Epstein M.B.B.S. [address] [place] [phone] 10/11/2023 10:00 AM DIRECTOR OF DESIGN Infusion Department of Oncology in [place], [place] [address] [place] [phone] Bev Gifford APRN, C.N.P., M.S.N. [address] [place] [phone] 11/19/2023 10:00 AM CDT Office Visit Division of Endocrinology in [place], [place] [address] [place] [phone] West Mendoza APRN, C.N.P., M.S. [address] [place] [phone] 11/19/2023 2:30 PM CDT Comprehensive Visit Division of Hepatobiliary and Pancreas Surgery in [place], [place] [address] [place] [phone] Wesley Hamilton M.D. [address] [place] [phone] Scheduled Procedures Name Priority Associated Diagnoses Date/Ti me LAPAROTOMY - ABDOMINAL WASHOUT Ischemia Intestinal With Stricture (HCC) 10/06/2023 9:04 AM DIRECTOR OF DESIGN documented as of this encounter Procedures Procedure Name Priority Date/Time Associated Diagnosis Comments PET CT SKULL TO THIGH RAD - Routine (most inpatients and all outpatients) 06/28/2023 12:25 PM CDT Lymphoma Non Hodgkins (HCC) documented in this encounter Results * PET CT Skull to Thigh FDG (06/28/2023 12:25 PM CDT) Anatomical Region Laterality Modality Body, Nuclear Medicine PET R ST LOS, PET ARZ LOS, Nuclear Medicine PET FLA LOS, Nuclear Medicine N/A Positron Emission Tomography (PET), Positron Emission Tomography (PET) 06/28/2023 1:08 PM CDT Impressions 06/28/2023 1:57 PM CDT 1. Marked interval decrease in masslike thickening/FDG uptake involving the duodenum. Residual focal uptake adjacent to 3rd portion of duodenum containing a locule of gas. If this is related to lymphoma, Deauville score = 4, if inflammatory in nature/related to previous duodenal perforation, Deauville score = 2. 2. Mild gallbladder wall/adjacent hepatic uptake may be due to cholecystitis. Ultrasound/HIDA scan may be helpful for further delineation. Narrative 06/28/2023 1:57 PM CDT EXAM: ??PET CT SKULL TO THIGH FDG Serum glucose at time of F-18 FDG injection was 84 mg/dL. Patient followed standard dietary/fasting requirements for this exam. RADIOPHARMACEUTICAL/MEDS: Route: intravenous fludeoxyglucose F 18 injection HALFWAY (FDG F-18),9.94 millicurie TECHNIQUE: ??F-18 FDG PET/CT scan was performed from the orbits through the thighs with low dose, non-contrast, free-breathing CT images for attenuation correction and anatomic localization (AC/AL), with imaging beginning at approximately 60 minutes after radiotracer injection. COMPARISON: ??05/10/2023 PET/CT. INDICATION: ??Diffuse large B-cell lymphoma, interval chemotherapy. Subsequent treatment strategy. The patient reports no recent vaccinations. FINDINGS: ?? Marked interval decrease in masslike thickening and FDG uptake involving the 3rd portion of the duodenum. Residual moderate focal FDG uptake adjacent to the 3rd portion of the duodenum with locules of internal gas, SUV max 4.7, previously 19.1 (image 174). Additional previously noted FDG avid retroperitoneal lymph nodes have resolved. Previously seen diffuse FDG uptake involving the gastric wall has decreased. Diffuse bowel uptake, more prominent than prior exam may be physiologic or medication related. Interval decrease in size of a previously described pulmonary nodules, and resolution of associated FDG uptake. For example the left lower lobe pulmonary nodule has decreased in size measuring approximately 7 mm, previously 14 mm (image 130). Increased mild FDG uptake involving the gallbladder wall, most prominently at the gallbladder fundus, and mild FDG uptake within adjacent liver. New diffusely increased bone marrow activity likely related to interval chemotherapy. Normal spleen size and splenic activity. Significant incidental findings on the low-dose unenhanced CT images: Mild mucosal thickening within the ethmoid sinuses. Thyroidectomy. Atelectasis and scarring within both lungs. Vascular calcifications including the coronary arteries. Aortic valvular and mitral other calcification. Gynecomastia. Prostatomegaly. Colonic diverticulosis. Anterior abdominal wall injection granulomas. Degenerative skeletal changes. Postoperative changes left shoulder and lumbar spine. Procedure Note Ramon Fishman M.D. - 06/28/2023 EXAM: PET CT SKULL TO THIGH FDG Serum glucose at time of F-18 FDG injection was 84 mg/dL. Patient followedstandard dietary/fasting requirements for this exam. RADIOPHARMACEUTICAL/MEDS: Route: intravenous fludeoxyglucose F 18 injection HALFWAY (FDG F-18),9.94 millicurie TECHNIQUE: F-18 FDG PET/CT scan was performed from the orbits through thethighs with low dose, non-contrast, free-breathing CT images for attenuation correction andanatomic localization (AC/AL), with imaging beginning at approximately 60 minutes after radiotracerinjection. COMPARISON: 05/10/2023 PET/CT. INDICATION: Diffuse large B-cell lymphoma, interval chemotherapy.Subsequent treatment strategy. The patient reports no recent vaccinations. FINDINGS: Marked interval decrease in masslike thickening and FDG uptake involvingthe 3rd portion of the duodenum. Residual moderate focal FDG uptake adjacent to the 3rd portionof the duodenum with locules of internal gas, SUV max 4.7, previously 19.1 (image 174).Additional previously noted FDG avid retroperitoneal lymph nodes have resolved. Previously seen diffuse FDG uptake involving the gastric wall hasdecreased. Diffuse bowel uptake, more prominent than prior exam may be physiologic or medication related. Interval decrease in size of a previously described pulmonary nodules, andresolution of associated FDG uptake. For example the left lower lobe pulmonary nodule has decreasedin size measuring approximately 7 mm, previously 14 mm (image 130). Increased mild FDG uptake involving the gallbladder wall, most prominentlyat the gallbladder fundus, and mild FDG uptake within adjacent liver. New diffusely increased bone marrow activity likely related to intervalchemotherapy. Normal spleen size and splenic activity. Significant incidental findings on the low-dose unenhanced CT images: Mildmucosal thickening within the ethmoid sinuses. Thyroidectomy. Atelectasis and scarring within bothlungs. Vascular calcifications including the coronary arteries. Aortic valvular and mitralother calcification. Gynecomastia. Prostatomegaly. Colonic diverticulosis. Anterior abdominalwall injection granulomas. Degenerative skeletal changes. Postoperative changes left shoulder andlumbar spine. IMPRESSION: 1. Marked interval decrease in masslike thickening/FDG uptake involvingthe duodenum. Residual focal uptake adjacent to 3rd portion of duodenum containing a locule of gas. Ifthis is related to lymphoma, Deauville score = 4, if inflammatory in nature/related toprevious duodenal perforation, Deauville score = 2. 2. Mild gallbladder wall/adjacent hepatic uptake may be due tocholecystitis. Ultrasound/HIDA scan may be helpful for further delineation. 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) documented in this encounter Administered Medications Inactive Administered Medications - up to 3 most recent administrations Medication Order MAR Action Action Date Dose Rate Site fludeoxyglucose F 18 injection HALFWAY (FDG F-18) 4.5-16.5 millicurie, intravenous, Once, On Sat06/28/23 at 1115, For 1 dose, Imaging Protocol Orders Given 06/28/2023 10:48 AM CDT 9.94 millicuries documented in this encounter Additional Health Concerns Infection Onset Date Last Indicated Resolved Time Protective Environment 05/17/2023 05/17/2023 documented as of this encounter Care Teams Draw Bench Operator Helper Relationship Specialty Start Date End Date Elsewhere, Pcp PCP - General Internal Medicine 05/11/23 09/13/23 documented as of this encounter
--- OUTSIDE RECORDS SUMMARY | 2023-10-05 13:01 | XMS_ITS | Encounter Summary ---
Author Name Unknown Organization [facility] Address [address] [place] [address] Care Team Providers Care Assistant Quality Manager Name Role Phone Elsewhere, Pcp Primary Care Provider Unavailabl e Reason for Referral * Specialty Diagnoses / Procedures Referred By Contac t Referred To Contact RST Meehan/Gondsrinath [address] [place] [phone] [facility] Referral ID Status Reason Start Date Expiration Date Visits Re quested Visits Authorized Scheduling Instructions Please schedule today at 1630 or whenever they have time --rituxan transfer Reason for Visit * Episode Based Medications (Routine) - Authorized Specialty Diagnoses / Procedures Referred By Contac t Referred To Contact Diagnoses Lymphoma Non Hodgkins (HCC) Procedures X Molly Jarquin M.B.B.S., M.Erasmo. [address] [place] [address] Rst Hem Leupp [address] [place] [phone] Referral ID Status Reason Start Date Expiration Date V isits Requested Visits Authorized [id number] Authorized 05/17/2023 05/16/2025 99 99 Encounter Details Date Type Department Care Team (Late st Contact Info) Description 06/10/2023 12:30 PM CDT Infusion Department of Oncology in [place], [place] [address] [place] [address] Molly Jarquin M.B.B.S., M.D. [address] [place] [phone] Lymphoma Non Hodgkins (HCC) (Primary Dx) Social [...] any clubs o r organizations such as restorationism groups, unions, fraternal or athletic groups, or [...] Answer Date Recorded PHQ-2 Score 0 04/25/2020 [facility] - Occupational Stress Questionnaire Answer Date [...] Sign Reading Time Taken Comments Blood Pressure 104/46 06/10/2023 5:37 PM CDT Pulse 57 06/10/2023 5:37 PM CDT Temperature - - Respiratory Rate 16 06/10/2023 5:37 PM CDT Oxygen Saturation - - Inhaled Oxygen Concentration - - Weight - - Height - - Body Mass Index - - documented in this encounter Plan of Treatment Upcoming Encounters Date Type Department Care Team (Latest Contact Info) Description 10/06/2023 9:04 AM TURF GROWER - 10/06/2023 11:24 AM TURF GROWER Surgery RST ROMB MAIN OR [address] [place] [phone] Cameron Saenz M.D. [address] [place] [phone] ABDOMINAL EXPLORATION, REMOVAL ABTHERA, POSSBLE BOWEL RESECTION, PROCEED INDICATED 10/11/2023 7:00 AM TURF GROWER Appointment Department of Laboratory Medicine and Pathology, [facility], in [place], [place] [address] [place] [phone] Arti Epstein M.B.B.S. [address] [place] [phone] 10/11/2023 9:00 AM TURF GROWER Office Visit Division of Hematology in [place], [place] [address] [place] [phone] Arti Epstein M.B.B.S. [address] [place] [phone] 10/11/2023 10:00 AM TURF GROWER Infusion Department of Oncology in [place], [place] [address] [place] [phone] Bev Gifford APRN, C.N.P., M.S.N. [address] [place] [phone] 11/19/2023 10:00 AM CDT Office Visit Division of Endocrinology in [place], [place] [address] [place] [phone] West Mendoza APRN C.N.P., M.S. [address] [place] [phone] 11/19/2023 2:30 PM CDT Comprehensive Visit Division of Hepatobiliary and Pancreas Surgery in [address] [phone] Wesley Hamilton M.D. [address] [place] [phone] Scheduled Procedures Name Priority Associated Diagnoses Date/Ti me LAPAROTOMY - ABDOMINAL WASHOUT Ischemia Intestinal With Stricture (HCC) 10/06/2023 9:04 AM TURF GROWER Scheduled Referrals Name Type Priority Associated Diagnoses Order Schedule Medication Infusion Therapy; rituximab (RITUXAN); 3 hours Outpatient Referral Routine Lymphoma Non Hodgkins (HCC) Ordered: 06/10/2023 documented as of this encounter Visit Diagnoses Diagnosis Lymphoma Non Hodgkins (HCC)- Primary Ischemia Intestinal With Stricture (HCC) documented in this encounter Administered Medications Inactive Administered Medications - up to 3 most recent administrations Medication Order MAR Action Action Date Dose Rate Site acetaminophen tablet 650 mg (TYLENOL) 650 mg, oral, Once, On 06/10/23 at 1315, For 1 dose, Administer 30 minutes prior to riTUXimab. Given 06/10/2023 12:57 PM CDT 650 mg cycloPHOSphamide 1,500 mg in NaCl 0.9% 350 mL IVPB (CYTOXAN) 1,500 mg (rounded from 1,485 mg = 750 mg/m2 ? 1.98 m2 Treatment Plan BSA from Measured weight), intravenous, at 700 mL/hr, Administer over 30 Minutes, Once, On Sat06/10/23 at 1445, For 1 dose New Bag 06/10/2023 3:51 PM CDT 1,500 mg 700 mL/hr diphenhydrAMINE injection 25 mg (BENADRYL) 25 mg, intravenous, Once, On Sat06/10/23 at 1315, For 1 dose, Administer 30 minutes prior to riTUXimab. Given 06/10/2023 2:03 PM CDT 25 mg DOXOrubicin injection 100 mg (ADRIAMYCIN) 100 mg (rounded from 99 mg = 50 mg/m2 ? 1.98 m2 Treatment Plan BSA from Measured weight), intravenous, Administer over 10 Minutes, Once, On Sat06/10/23 at 1433, For 1 dose, Administer IV push through a free flowing IV of 0.9% NaCL over approximately 10 minutes via Y-site. Protect from light. Given 06/10/2023 3:26 PM CDT 100 mg palonosetron injection 0.25 mg (ALOXI) 0.25 mg, intravenous, Once, On Sat06/10/23 at 1315, For 1 dose Given 06/10/2023 2:03 PM CDT 0.25 mg polatuzumab vedotin-piiq 140 mg in NaCl 0.9% 117 mL IVPB (POLIVY) 140 mg, intravenous, at 234 mL/hr, Administer over 30 Minutes, Once, On Sat06/10/23 at 1403, For 1 dose, Monitor patient for 30 [...] is ready to receive drug. New Bag 06/10/2023 2:36 PM CDT 140 mg 234 mL/hr rituximab-pvvr 700 mg in NaCl 0.9% IVPB (RUXIENCE) 700 mg (rounded from 742.5 mg = 375 mg/m2 ? 1.98 m2 Treatment Plan BSA from Measured weight), intravenous, Once, On Sat06/10/23 at 1500, For 1 dose, Proceed with initial rate of 100 mg/hr and increase by 100 mg/hr every 30 minutes to a maximum of 400 mg/hr., Restriction Criteria (Pharmacy will review and approve if criteria met): Meets rituximab algorithm criteria Restarted 06/10/2023 6:57 PM CDT 400 mL/hr Rate/Dose Change 06/10/2023 6:25 PM CDT 300 mL/ hr Rate/Dose Change 06/10/2023 5:54 PM CDT 200 mL/ hr documented in this encounter Additional Health Concerns Infection Onset Date Last Indicated Resolved Time Protective Environment 05/17/2023 05/17/2023 documented as of this encounter Care Teams Assistant Quality Manager Relationship Specialty Start Date End Date Elsewhere, Pcp PCP - General Internal Medicine 05/11/23 09/13/23 documented as of this encounter
--- OUTSIDE RECORDS SUMMARY | 2023-10-05 13:01 | XMS_ITS | Encounter Summary ---
Author Name Unknown Organization [facility] Address [address] [place] [address] Care Team Providers Care Appeals Board Referee Name Role Phone Elsewhere, Pcp Primary Care Provider Unavailabl e Reason for Visit * Reason Onset Date Comments Pre-visit Intake 06/07/2023 Encounter Details Date Type Department Care Team (Latest Contact Info) Description 06/07/2023 8:00 AM CDT Clinical Communication Virtual Review in [place], [place] [address] [place], [place] [phone] Pre-visit Intake Social History Tobacco Use Types [...] 04/25/2020 [facility] of Occupat ional Health - Occupational [...] (Latest Contact Info) Description 10/06/2023 9:04 AM FORECAST ANALYST - 10/06/2023 11:24 AM FORECAST ANALYST Surgery RST [facility] MAIN OR [address] [place] [phone] Cameron Saenz M.D. [address] [place] [phone] ABDOMINAL EXPLORATION, REMOVAL ABTHERA, POSSBLE BOWEL RESECTION, PROCEED INDICATED 10/11/2023 7:00 AM FORECAST ANALYST Appointment Department of Laboratory Medicine and Pathology, [facility], in [place], [place] [address] [place] [phone] Arti Epstein M.B.B.S. [address] [place] [phone] 10/11/2023 9:00 AM FORECAST ANALYST Office Visit Division of Hematology in [place], [place] [address] [place] [phone] Arti Epstein M.B.B.S. [address] [place] [phone] 10/11/2023 10:00 AM FORECAST ANALYST Infusion Department of Oncology in [place], [place] [address] [place] [phone] Bev Gifford APRN, C.N.P., M.S.N. [address] [place] [phone] 11/19/2023 10:00 AM CDT Office Visit Division of Endocrinology in [address] [phone] West Mendoza APRN, C.N.P., M.S. [address] [place] [phone] 11/19/2023 2:30 PM CDT Comprehensive Visit Division of Hepatobiliary and Pancreas Surgery in [address] [phone] Wesley Hamilton M.D. [address] [place] [phone] Scheduled Procedures Name Priority Associated Diagnoses Date/Ti me LAPAROTOMY - ABDOMINAL WASHOUT Ischemia Intestinal With Stricture (HCC) 10/06/2023 9:04 AM FORECAST ANALYST documented as of this encounter Visit Diagnoses Not on filedocumented in this encounter Additional Health Concerns Infection Onset Date Last Indicated Resolved Time Protective Environment 05/17/2023 05/17/2023 documented as of this encounter Care Teams Appeals Board Referee Relationship Specialty Start Date End Date Elsewhere, Pcp PCP - General Internal Medicine 05/11/23 09/13/23 documented as of this encounter
--- OUTSIDE RECORDS SUMMARY | 2023-10-05 13:01 | XMS_ITS | Encounter Summary ---
Author Name Unknown Organization [facility] Address [address] [place] [address] Care Team Providers Care Lieutenant Fire Fighter Name Role Phone Elsewhere, Pcp Primary Care Provider Unavailabl e Encounter Details Date Type Department Care Team ([facility] st Contact Info) Description 06/19/2023 Clinical Communication Division of Hematology in [place], [place] [address] [place] [phone] Zina Serna M.D. [address] [place] [phone] Social History Tobacco Use Types Packs/Day Years [...] any clubs o r organizations such as jehovah's witness groups, unions, fraternal or athletic groups, or [...] Answer Date Recorded PHQ-2 Score 0 04/25/2020 [facility] Occupat ional [facility] - Occupational [...] encounter Miscellaneous Notes * Telephone Encounter - Zina Serna M.D. - 06/19/2023 7:04 PM CDT I was contacted by [facility] regarding critical lab result for Mr. Lau. 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 He has WBC count of 1.12. The rest of the differential was not reported in our call and not viewable on CareEverywhere. Patient says he is feeling ok, he is resting more but eating well. He denies fevers, diarrhea, vomiting, dysuria, cough. He has previous circumcision and occasionally develops dry skin at the meatus but not having bladder pain ordysuria. I advised that he monitor for signs/symptoms of infection closely given he is in a period of neutropenia at this time and to present to his closest ED if he develops a fever or otherwise feeling unwell. He says he will do that and appreciates the call. Zina Serna MD Hematology/Oncology Fellow, PGY4 documented in this encounter Plan of Treatment Upcoming Encounters Date Type Department Care Team (Latest Contact Info) Description 10/06/2023 9:04 AM RESEARCH GENETICIST - 10/06/2023 11:24 AM RESEARCH GENETICIST Surgery [facility] OR [address] [place] [phone] Cameron Saenz M.D. [address] [place] [phone] ABDOMINAL EXPLORATION, REMOVAL ABTHERA, POSSBLE BOWEL RESECTION, PROCEED INDICATED 10/11/2023 7:00 AM RESEARCH GENETICIST Appointment Department of Laboratory Medicine and Pathology, [facility], in [place], [place] [address] [place] [phone] Arti Epstein M.B.B.S. [address] [place] [phone] 10/11/2023 9:00 AM RESEARCH GENETICIST Office Visit Division of Hematology in [place], [place] [address] [place] [phone] Arti Epstein M.B.B.S. [address] [place] [phone] 10/11/2023 10:00 AM RESEARCH GENETICIST Infusion Department of Oncology in [place], [place] [address] [place] [phone] Bev Gifford APRN, C.N.P., M.S.N. [address] [place] [phone] 11/19/2023 10:00 AM CDT Office Visit Division of Endocrinology in [place], [place] [address] [place] [phone] West Mendoza APRN, C.N.Ash., M.S. [address] [place] [phone] 11/19/2023 2:30 PM CDT Comprehensive Visit Division of Hepatobiliary and Pancreas Surgery in [place], [place] [address] [place] [phone] Wesley Hamilton M.D. [address] [place] [phone] Scheduled Procedures Name Priority Associated Diagnoses Date/Ti me LAPAROTOMY - ABDOMINAL WASHOUT Ischemia Intestinal With Stricture (HCC) 10/06/2023 9:04 AM RESEARCH GENETICIST documented as of this encounter Visit Diagnoses Not on filedocumented in this encounter Additional Health Concerns Infection Onset Date Last Indicated Resolved Time Protective Environment 05/17/2023 05/17/2023 documented as of this encounter Care Teams Lieutenant Fire Fighter Relationship Specialty Start Date End Date Elsewhere, Pcp PCP - General Internal Medicine 05/11/23 09/13/23 documented as of this encounter
--- OUTSIDE RECORDS SUMMARY | 2023-10-05 13:01 | XMS_ITS | Encounter Summary ---
Author Name Unknown Organization [facility] Address [address] [place] [address] Care Team Providers Care Motel Front Desk Clerk Name Role Phone Elsewhere, Pcp Primary Care Provider Unavailabl e Reason for Visit * Reason Comments Outpatient Infusion Rituxan Encounter Details Date Type Department Care Team ([facility] st Contact Info) Description 06/10/2023 4:45 PM CDT Infusion Department of Infusion Therapy in [place], [place] [address] [place] [address] Bety Castro M.D. [address] [place] [phone] Lymphoma Non Hodgkins (HCC) (Primary Dx) Social [...] often do you attend chur ch or mormon services? Never 01/10/2023 Do you belong to any clubs o r organizations such as orthodoxy groups, unions, fraternal or athletic groups, or [...] Answer Date Recorded PHQ-2 Score 0 04/25/2020 [facility] of Occupat ional Health - Occupational Stress [...] Sign Reading Time Taken Comments Blood Pressure 119/66 06/10/2023 8:08 PM CDT Pulse 85 06/10/2023 8:08 PM CDT Temperature 36.8 ??C (98.2 ??F) 06/10/2023 8:08 PM CD T Respiratory Rate 16 06/10/2023 8:08 PM CDT Oxygen Saturation - - Inhaled Oxygen Concentration - - Weight - - Height - - Body Mass Index - - documented in this encounter Plan of Treatment Upcoming Encounters Date Type Department Care Team (Latest Contact Info) Description 10/06/2023 9:04 AM MIXER LEVER OPERATOR - 10/06/2023 11:24 AM MIXER LEVER OPERATOR Surgery RST [facility] MAIN OR [address] [place] [phone] Cameron Saenz M.D. [address] [place] [phone] ABDOMINAL EXPLORATION, REMOVAL ABTHERA, POSSBLE BOWEL RESECTION, PROCEED INDICATED 10/11/2023 7:00 AM MIXER LEVER OPERATOR Appointment Department of Laboratory Medicine and Pathology, [facility], in [place], [place] [address] [place] [phone] Arti Epstein M.B.B.S. [address] [place] [phone] 10/11/2023 9:00 AM MIXER LEVER OPERATOR Office Visit Division of Hematology in [address] [phone] Arti Epstein M.B.B.S. [address] [place] [phone] 10/11/2023 10:00 AM MIXER LEVER OPERATOR Infusion Department of Oncology in [place], [place] [address] [place] [phone] Bev Gifford APRN, C.N.P., M.S.N. [address] [place] [phone] 11/19/2023 10:00 AM CDT Office Visit Division of Endocrinology in [place], [place] [address] [place] [phone] RejiWest chisholm APRN, C.NJohannaP., M.S. [address] [place] [phone] 11/19/2023 2:30 PM CDT Comprehensive Visit Division of Hepatobiliary and Pancreas Surgery in [place], [place] [address] [place] [phone] Wesley Hamilton M.D. 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
--- OUTSIDE RECORDS SUMMARY | 2023-10-05 13:01 | XMS_ITS | Encounter Summary ---
Author Name Unknown Organization [facility] Address [address] [place] [address] Care Team Providers Care Coal Briquette Machine Operator Name Role Phone Elsewhere, Pcp Primary Care Provider Unavailabl e Reason for Visit * Reason Onset Date Comments External Lab Entry 06/03/2023 Encounter Details Date Type Department Care Team (Latest Contact Info) Description 06/03/2023 Clinical Communication Division of Hematology in [place], [place] [address] [place] [address] Bety Castro M.D. [address] [place] [phone] External Lab Entry Social History Tobacco Use [...] any clubs o r organizations such as taoism groups, unions, fraternal or athletic groups, or [...] Answer Date Recorded PHQ-2 Score 0 04/25/2020 [facility] of Occupat ional Health - Occupational [...] place to sleep or slept in a fpc (including now)? No 01/10/2023 Nutrition Answer Date [...] encounter Miscellaneous Notes * Telephone Encounter - Janessa Cordova - 06/03/2023 3:28 PM CDT Outside labs collected on 06/03/2023 have been received. The fax has been scanned into the patient record via [employer], and the CBC results are as noted below. Hemoglobin: 9.1 Hematocrit: 29.6 WBC: 5.77 ANC: 4.40 Platelets: 115.0 Please note: Are there additional labs reported on the outside report? No documented in this encounter Plan of Treatment Upcoming Encounters Date Type Department Care Team (Latest Contact Info) Description 10/06/2023 9:04 AM MANUAL PLATE FILLER - 10/06/2023 11:24 AM MANUAL PLATE FILLER Surgery [facility]ST [facility] MAIN OR [address] [place] [phone] Cameron Saenz M.D. [address] [place] [phone] ABDOMINAL EXPLORATION, REMOVAL ABTHERA, POSSBLE BOWEL RESECTION, PROCEED INDICATED 10/11/2023 7:00 AM MANUAL PLATE FILLER Appointment Department of Laboratory Medicine and Pathology, [facility] in [place], [place] [address] [place] [phone] Arti Epstein M.B.B.S. [address] [place] [phone] 10/11/2023 9:00 AM MANUAL PLATE FILLER Office Visit Division of Hematology in [address] [phone] Arti Epstein M.B.B.S. [address] [place] [phone] 10/11/2023 10:00 AM MANUAL PLATE FILLER Infusion Department of Oncology in [place], [place] [address] [place] [phone] Bev Gifford APRN, C.N.P., M.S.N. [address] [place] [phone] 11/19/2023 10:00 AM CDT Office Visit Division of Endocrinology in [place], [place] [address] [place] [address] West Mendoza APRN, C.N.P., M.S. [address] [place] [phone] 11/19/2023 2:30 PM CDT Comprehensive Visit Division of Hepatobiliary and Pancreas Surgery in [place], [place] [address] [place] [phone] Wesley Hamilton M.D. [address] [place] [phone] Scheduled Procedures Name Priority Associated Diagnoses Date/Ti me LAPAROTOMY - ABDOMINAL WASHOUT Ischemia Intestinal With Stricture (HCC) 10/06/2023 9:04 AM MANUAL PLATE FILLER documented as of this encounter Visit Diagnoses Not on filedocumented in this encounter Additional Health Concerns Infection Onset Date Last Indicated Resolved Time Protective Environment 05/17/2023 05/17/2023 documented as of this encounter Care Teams Coal Briquette Machine Operator Relationship Specialty Start Date End Date Elsewhere, Pcp PCP - General Internal Medicine 05/11/23 09/13/23 documented as of this encounter
--- OUTSIDE RECORDS SUMMARY | 2023-10-05 13:01 | XMS_ITS | Encounter Summary ---
Author Name Unknown Organization [facility] Address [address] [place] [address] Care Team Providers Care Photogrammetry Airplane Pilot Name Role Phone Elsewhere, Pcp Primary Care Provider Unavailabl e Reason for Referral * Outpatient (Routine) Specialty Diagnoses / Procedures Referred By Doroteo duron Referred To Contact Hematology Oncology Bety Castro M.D. [address] [place] [address] [facility] Referral ID Status Reason Start Date Expiration Date Visits Re quested Visits Authorized * MRI/CAT/PET Scan (Routine) - Closed Specialty Diagnoses / Procedures Referred By Doroteo duron Referred To Contact Diagnoses Lymphoma Non Hodgkins (HCC) Procedures PET CT Skull to Thigh FDG Bety Castro M.D. [address] [place] [address] [facility] Referral ID Status Reason Start Date Expiration Date Visits Re quested Visits Authorized [id number] Closed 06/10/2023 06/09/2024 1 1 Reason for Visit * Episode Based Medications (Routine) - Authorized Specialty Diagnoses / Procedures Referred By Doroteo duron Referred To Contact Diagnoses Lymphoma Non Hodgkins (HCC) Procedures X Fernando C M Jean, Dhauna Jean, M.B.BTami, Tani [address] [place] [address] Rst Hem [place] [address] [place] [address] Referral ID Status Reason Start Date Expiration Date V isits Requested Visits Authorized [id number] Authorized 05/17/2023 05/16/2025 99 99 Encounter Details Date Type Department Care Team (Late st Contact Info) Description 06/10/2023 11:15 AM CDT Office Visit Division of Hematology in [place], [place] [address] [place] [address] Molly Jarquin M.B.B.S., Tani [address] [place] [address] Bety Castro M.D. [address] [place] [address] Lymphoma Non Hodgkins (HCC) (Primary Dx) Social [...] How often do you attend chur or druze services? Never 01/10/2023 Do you belong to any clubs o r organizations such as yazidism groups, unions, fraternal or athletic groups, or [...] Answer Date Recorded PHQ-2 Score 0 04/25/2020 [facility] - [...] place to sleep or slept in a group home (including now)? No 01/10/2023 Nutrition Answer [...] Sign Reading Time Taken Comments Blood Pressure 103/60 06/10/2023 11:08 AM CDT Pulse 58 06/10/2023 11:08 AM CDT Temperature 36.3 ??C (97.4 ??F) 06/10/2023 11:08 AM C DT Respiratory Rate - - Oxygen Saturation - - Inhaled Oxygen Concentration - - Weight 80.3 kg (177 lb 0.5 oz) 06/10/2023 11:08 AM CDT Height 176.6 cm (5' 9.53) 06/10/2023 11:08 AM C DT Body Mass Index 25.75 06/10/2023 11:08 AM CDT documented in this encounter Progress Notes * Bety Castro M.D. - 06/10/2023 11:15 AM CDT Progress note (06/10/2023) CHIEF COMPLAINT / REASON FOR VISIT DLBCL-NOS HISTORY OF PRESENT ILLNESS Mr. Lau is a 72 yo man who has been feeling unwell for about 4 weeks with mostly postprandial nausea, vomiting, abdominal pain and inability to tolerate PO intake. Since January 2023 he lost about 40pounds but denies fever, night sweats or palpable lumps. He was hospitalized during mid [facility] due to his nausea, vomiting and abdominal [...] evidence of cholecystitis. During his hospital stay [facility], he had fevers and low hemoglobin in the 8-9 range as well as an ROMEO that improved with fluids. EGD was performed on 04/24/2023 in [facility] which revealed a duodenal necrotizing ulcer which was biopsies however that was read as a necroinflammatory ulcer with duodenal mucosa, acute and chronic inflammation without evidence of active malignancy. After he was treated with PPI and antibiotics despite no source of infection was identifies; he was discharged on 04/27/2023. He was readmitted on 04/29/2023 after he was seen that morning in [facility] and found to be hypotensive with a [...] his nausea, vomiting and PO intolerance; NG tubewas placed for tube feeds. He was discharged [...] The remainder of chemotherapy was started (Preston-CHP) =was given on05/21/2023.. He received appropriate prophylactic medications including pentamidine (05/20), acyclovir, lansoprazole, allopurinol. 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 NG tube was placed and duodenal mass biopsy via EGD was suspicious for B cell lymphoma but with crushed artifact. He saw us at clinic on 05/09/2023 and decided to obtain PET CT to guide tissue biopsy in order to establish diagnosis PET CT showed howed a primary duodenal mass but with uptake in several lymph nodes , some are not contiguous with duodenum thus making his him at stage IV. He ended up being hospitalized between 05/11-05/23 , mesenteric LN biopsy confirmed the diagnosis of DLBCL-NOS. He received cycle 1 Polar-R-CHP during hospitalization including 4 total doses of IV methylprednisolone (05/16-05/20/2023). Then he was started on Rituximab on 05/18. The remainder of chemotherapy was started (Preston-CHP) was given on 05/21/2023.. On 05/20, his symptomsof nausea, vomiting had improved to the point that oral diet was trialed and successful. On 05/21, [place] tube was removed. Plan: -Proceed with cycle 2 Preston-R-CHP without dose adjustments as he is doing much better clinically. Rich tolerate PO intake very well and his appetite has improved significantly. He looks much less pale than we saw him first time. -he will receive Neulasta locally tomorrow. -Continue w/ allopurinol and acyclovir -We will obtain PET CT prior to cycle number 3 RTC in 3 weeks Patient seen and discussed with documented in this encounter Plan of Treatment Upcoming Encounters Date Type Department Care Team (Latest Contact Info) Description 10/06/2023 9:04 AM SKIRT CLIPPER - 10/06/2023 11:24 AM SKIRT CLIPPER Surgery RST ROMB MAIN OR [address] [place] [phone] Cameron Saenz M.D. [address] [place] [phone] ABDOMINAL EXPLORATION, REMOVAL ABTHERA, POSSBLE BOWEL RESECTION, PROCEED INDICATED 10/11/2023 7:00 AM SKIRT CLIPPER Appointment Department of Laboratory Medicine and Pathology, [facility], in [place], [place] [address] [place] [phone] Arti Epstein M.B.B.S. [address] [place] [phone] 10/11/2023 9:00 AM SKIRT CLIPPER Office Visit Division of Hematology in [place], [place] [address] [place] [phone] Arti Epstein M.B.B.S. [address] [place] [phone] 10/11/2023 10:00 AM SKIRT CLIPPER Infusion Department of Oncology in [place], [place] [address] [place] [phone] Bev Gifford APRN, C.N.P., M.S.N. [address] [place] [phone] 11/19/2023 10:00 AM CDT Office Visit Division of Endocrinology in [place], [place] [address] [place] [phone] West Mendoza APRN, C.N.P., M.S. [address] [place] [phone] 11/19/2023 2:30 PM CDT Comprehensive Visit Division of Hepatobiliary and Pancreas Surgery in [place], [place] [address] [place] [phone] Wesley Hamilton M.D. [address] [place] [phone] Scheduled Procedures Name Priority Associated Diagnoses Date/Ti me LAPAROTOMY - ABDOMINAL WASHOUT Ischemia Intestinal With Stricture (HCC) 10/06/2023 9:04 AM SKIRT CLIPPER Scheduled Referrals Name Type Priority Associated Diagnoses Order Schedule Hematology office visit (clinic) [place]; Lymphoma; Pre-Chemo Outpatient Referral Routine Lymphoma Non Hodgkins (HCC) Expected: 07/01/2023, Expires: 07/01/2024 documented as of this encounter Results * [...] RADIOPHARMACEUTICAL/MEDS: Route: intravenous fludeoxyglucose F 18 injection [facility] (FDG F-18),9.94 millicurie TECHNIQUE: ??F-18 FDG PET/CT [...] RADIOPHARMACEUTICAL/MEDS: Route: intravenous fludeoxyglucose F 18 injection [facility] (FDG F-18),9.94 millicurie TECHNIQUE: F-18 FDG PET/CT [...] may be helpful for further delineation. Bety Castro M.D. [facility] [place] PROCEDURES * (ABNORMAL) Comprehensive Metabolic Panel (06/28/2023 9:23 AM CDT) Potassium, S 4.1 3.6 - 5.2 mmol/L 06/28/2023 10:25 AM CDT DTL Sodium, S 139 135 - 145 mmol/L 06/28/2023 10:25 AM CDT DTL Chloride, S 100 98 - 107 mmol/L 06/28/2023 10:25 AM CDT DTL Bicarbonate, S 27 22 - 29 mmol/L 06/28/2023 10:25 AM CDT DTL Anion Gap 12 7 - 15 06/28/2023 10:25 AM CDT DTL BUN (Blood Urea Nitrogen), S 9 8 - 24 mg/dL 06/28/2023 10:25 AM CDT DTL Creatinine 0.80 0.74 - 1.35 mg/dL 06/28/2023 10:25 AM CDT DTL Estimated GFR (eGFR) >90 >=60 mL/min/BS A 06/28/2023 10:25 AM CDT DTL Comment: Estimated GFR calculated using the 2020 CKD_EPI creatinine equation. Calcium, Total, S 8.5(L) 8.8 - 10.2 mg/dL 06/28/2023 10:25 AM CDT DTL Glucose, S 92 70 - 140 mg/dL 06/28/2023 10:25 AM CDT DTL Protein, Total, S 5.6(L) 6.3 - 7.9 g/dL 06/28/2023 10:25 AM CDT DTL Albumin, S 3.5 3.5 - 5.0 g/dL 06/28/2023 10:25 AM CDT DTL Aspartate Aminotransferase (AST), S 29 8 - 48 U/L 06/28/2023 10:25 AM CDT DTL Alkaline Phosphatase, S 157(H) 40 - 129 U/L 06/28/2023 10:25 AM CDT DTL Alanine Aminotransferase (ALT), S 18 7 - 55 U/L 06/28/2023 10:25 AM CDT DTL Bilirubin, Total, S 0.2 0.0 - 1.2 mg/dL 06/28/2023 10:25 AM CDT DTL Blood (Blood, Venous) 06/28/2023 9:23 AM CDT 06/28/2023 10:04 AM CDT Bety Castro M.D. LAB BLO OD ADD-ON [address] [address], [place] [address] * (ABNORMAL) CBC with Differential, Blood (06/28/2023 9:23 AM CDT) Hemoglobin 10.0(L) 13.2 - 16.6 g/dL 06/28/2023 9:58 AM CDT DTL Hematocrit 32.3(L) 38.3 - 48.6 % 06/28/2023 9:58 AM CDT DTL Erythrocytes 3.88(L) 4.35 - 5.65 x10(12)/L 06/28/2023 9:58 AM CDT DTL MCV 83.2 78.2 - 97.9 fL 06/28/2023 9:58 AM CDT DTL RBC Distrib Width 23.9(H) 11.8 - 14.5 % 06/28/2023 9:58 AM CDT DTL Platelet Count 289 135 - 317 x10(9)/L 06/28/2023 9:58 AM CDT DTL Leukocytes 15.0(H) 3.4 - 9.6 x10(9)/L 06/28/2023 9:58 AM CDT DTL Neutrophils 13.63(H) 1.56 - 6.45 x10(9)/L 06/28/2023 9:58 AM CDT DHPM Lymphocytes 0.44(L) 0.95 - 3.07 x10(9)/L 06/28/2023 9:58 AM CDT DTL Monocytes 0.43 0.26 - 0.81 x10(9)/L 06/28/2023 9:58 AM CDT DTL Eosinophils 0.36 0.03 - 0.48 x10(9)/L 06/28/2023 9:58 AM CDT DTL Basophils 0.12(H) 0.01 - 0.08 x10(9)/L 06/28/2023 9:58 AM CDT DTL Blood (Blood, Venous) 06/28/2023 9:23 AM CDT 06/28/2023 9:44 AM CDT Bety Castro M.D. 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
--- OUTSIDE RECORDS SUMMARY | 2023-10-05 13:02 | XMS_ITS | Encounter Summary ---
Author Name Unknown Organization [facility] Address [address] [place] [address] Care Team Providers Care Sales Account Associate Name Role Phone Elsewhere, Pcp Primary Care Provider Unavailabl e Reason for Visit * Reason Comments Injections * Episode Based Medications (Routine) - Authorized Specialty Diagnoses / Procedures Referred By Doroteo t Referred To Contact Diagnoses Lymphoma Non Hodgkins (HCC) Procedures X Molly Jarquin M.B.B.SJohanna, MBeny [address] [place] [address] Rst Hem [place] [address] [place] [phone] Referral ID Status Reason Start Date Expiration Date V isits Requested Visits Authorized [id number] Authorized 05/17/2023 05/16/2025 99 99 Encounter Details Date Type Department Care Team (Late st Contact Info) Description 05/23/2023 12:30 PM CDT Infusion Department of Infusion Therapy in [place], [place] [address] [place] [phone] Molly Jarquin, RufinoBJohannaB.SJohanna, MJohannaDJohanna [address] [place] [address] Lymphoma Non Hodgkins (HCC) (Primary Dx) Discharge Disposition: Home or Self Care Social History Tobacco Use Types Packs/Day Years Used Date Smoking Tobacco: Former Cigarettes 1 22 Q uit: 02/07/1989 Smokeless Tobacco: Former Snuff Quit: 04/18/2023 Alcohol Use Standard Drinks/Week Comments Yes 2 (1 standard drink = 0.6 oz pur [...] Date Recorded PHQ-2 Score 0 04/25/2020 [facility] - Occupational Stress Questionnaire Answer Date Recorded [...] place to sleep or slept in a long term (including now)? No 01/10/2023 Nutrition Answer Date [...] Sign Reading Time Taken Comments Blood Pressure 107/49 05/23/2023 12:53 PM CDT Pulse 66 05/23/2023 12:53 PM CDT Temperature 36.7 ??C (98.1 ??F) 05/23/2023 12:53 PM C DT Respiratory Rate 12 05/23/2023 12:53 PM CDT Oxygen Saturation - - Inhaled Oxygen Concentration - - Weight - - Height - - Body Mass Index - - documented in this encounter Plan of Treatment Upcoming Encounters Date Type Department Care Team (Latest Contact Info) Description 10/06/2023 9:04 AM MENTAL HEALTH NURSE - 10/06/2023 11:24 AM MENTAL HEALTH NURSE Surgery RST ROMB MAIN OR [address] [place] [phone] Cameron Saenz M.D. [address] [place] [phone] ABDOMINAL EXPLORATION, REMOVAL ABTHERA, POSSBLE BOWEL RESECTION, PROCEED INDICATED 10/11/2023 7:00 AM MENTAL HEALTH NURSE Appointment Department of Laboratory Medicine and Pathology, [facility], in [place], [place] [address] [place] [phone] Arti Epstein M.B.B.S. [address] [place] [phone] 10/11/2023 9:00 AM MENTAL HEALTH NURSE Office Visit Division of Hematology in [place], [place] [address] [place] [phone] Arti Epstein M.B.B.S. [address] [place] [phone] 10/11/2023 10:00 AM MENTAL HEALTH NURSE Infusion Department of Oncology in [place], [place] [address] [place] [phone] Bev Gifford APRN, C.N.P., M.S.N. [address] [place] [phone] 11/19/2023 10:00 AM CDT Office Visit Division of Endocrinology in [place], [place] [address] [place] [phone] West Mendoza APRN, C.N.P., M.S. [address] [place] [phone] 11/19/2023 2:30 PM CDT Comprehensive Visit Division of Hepatobiliary and Pancreas Surgery in [place], [place] [address] [place] [phone] Wesley Hamilton M.D. 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) documented in this encounter Administered Medications Inactive Administered Medications - up to 3 most recent administrations Medication Order MAR Action Action Date Dose Rate Site pegfilgrastim-jmdb injection 6 mg (FULPHILA) 6 mg, subcutaneous, Once, On Genie 05/23/23 at 1315, For 1 dose Given 05/23/2023 1:12 PM CDT 6 mg Right Lower Abdomen documented in this encounter Additional Health Concerns Infection Onset Date Last Indicated Resolved Time Protective Environment 05/17/2023 05/17/2023 documented as of this encounter Care Teams Sales Account Associate Relationship Specialty Start Date End Date Elsewhere, Pcp PCP - General Internal Medicine 05/11/23 09/13/23 documented as of this encounter
--- OUTSIDE RECORDS SUMMARY | 2023-10-05 13:02 | XMS_ITS | Encounter Summary ---
Author Name Unknown Organization [facility] Address [address] [place] [address] Care Team Providers Care Manager Patient Name Role Phone Elsewhere, Pcp Primary Care Provider Unavailabl e Reason for Visit * Reason Onset Date Comments Follow-up 05/30/2023 HEN sign off Encounter Details Date Type Department Care Team (Latest Contact Info) Description 05/30/2023 Clinical Communication Department of Nutrition and Diabetes Education in [place], [place] [address] [place] [phone] Maricruz Meehan RDN, LD [address] [place] [phone] Follow-up (HEN sign off) Social History Tobacco Use Types Packs/Day Years [...] often do you attend chur ch or yarsani services? Never 01/10/2023 Do you belong to [...] Answer Date Recorded PHQ-2 Score 0 04/25/2020 [facility] ional Health - Occupational [...] place to sleep or slept in a prison (including now)? No 01/10/2023 Nutrition Answer Date [...] encounter Miscellaneous Notes * Telephone Encounter - Maricruz Meehan RDN, LD - 05/30/2023 7:36 AM CDT Patient's feeding tube was removed on 05/21/23 Notified patient's tube feeding supply [employer]. [place] Clinical Liaison [phone]. Patient Refill number . Adult [facility] Enteral Nutrition will sign off. documented in this encounter Plan of Treatment Upcoming Encounters Date Type Department Care Team (Latest Contact Info) Description 10/06/2023 9:04 AM SORT MANAGER - 10/06/2023 11:24 AM SORT MANAGER Surgery [facility]ST ROMB MAIN OR [address] [place] [phone] Cameron Saenz M.D. [address] [place] [phone] ABDOMINAL EXPLORATION, REMOVAL ABTHERA, POSSBLE BOWEL RESECTION, PROCEED INDICATED 10/11/2023 7:00 AM SORT MANAGER Appointment Department of Laboratory Medicine and Pathology, [facility], in [place], [place] [address] [place] [phone] Arti Epstein M.B.B.S. [address] [place] [phone] 10/11/2023 9:00 AM SORT MANAGER Office Visit Division of Hematology in [place], [place] [address] [place] [phone] Arti Epstein M.B.B.S. [address] [place] [phone] 10/11/2023 10:00 AM SORT MANAGER Infusion Department of Oncology in [place], [place] [address] [place] [phone] Bev Gifford APRN, C.N.P., M.S.N. [address] [place] [phone] 11/19/2023 10:00 AM CDT Office Visit Division of Endocrinology in [place], [place] [address] [place] [phone] West Mendoza APRN, C.N.P., M.S. [address] [place] [phone] 11/19/2023 2:30 PM CDT Comprehensive Visit Division of Hepatobiliary and Pancreas Surgery in [place], [place] [address] [place] [phone] Wesley Hamilton M.D. [address] [place] [phone] Scheduled Procedures Name Priority Associated Diagnoses Date/Ti me LAPAROTOMY - ABDOMINAL WASHOUT Ischemia Intestinal With Stricture (HCC) 10/06/2023 9:04 AM SORT MANAGER documented as of this encounter Visit Diagnoses Not on filedocumented in this encounter Additional Health Concerns Infection Onset Date Last Indicated Resolved Time Protective Environment 05/17/2023 05/17/2023 documented as of this encounter Care Teams Manager Patient Relationship Specialty Start Date End Date Elsewhere, Pcp PCP - General Internal Medicine 05/11/23 09/13/23 documented as of this encounter
--- OUTSIDE RECORDS SUMMARY | 2023-10-05 13:02 | XMS_ITS | Encounter Summary ---
Author Name Unknown Organization [facility] Address [address] [place] [address] Care Team Providers Care Extended Insurance Clerk Name Role Phone Elsewhere, Pcp Primary Care Provider Unavailabl e Encounter Details Date Type Department Care Team (Late st Contact Info) Description 05/24/2023 Clinical Communication RST HIM [address] [place] [phone] Molly Jarquin M.B.B.S., MTrista. [address] [place] [phone] Social History Tobacco Use Types Packs/Day Years [...] often do you attend chur ch or latter-day services? Never 01/10/2023 Do you belong to any clubs o r organizations such as yazidi groups, unions, fraternal or athletic groups, or [...] Score 0 04/25/2020 [facility] - Occupational Stress Questionnaire Answer Date [...] (Latest Contact Info) Description 10/06/2023 9:04 AM SCUBA DIVE TRAINING INSTRUCTOR - 10/06/2023 11:24 AM SCUBA DIVE TRAINING INSTRUCTOR Surgery [facility]ST ROM[facility] MAIN OR [address] [place] [phone] Cameron Saenz M.D. [address] [place] [phone] ABDOMINAL EXPLORATION, REMOVAL ABTHERA, POSSBLE BOWEL RESECTION, PROCEED INDICATED 10/11/2023 7:00 AM SCUBA DIVE TRAINING INSTRUCTOR Appointment Department of Laboratory Medicine and Pathology, [facility], in [place], [place] [address] [place] [phone] Arti Epstein M.B.B.S. [address] [place] [phone] 10/11/2023 9:00 AM SCUBA DIVE TRAINING INSTRUCTOR Office Visit Division of Hematology in [place], [place] [address] [place] [phone] Arti Epstein M.B.B.S. [address] [place] [phone] 10/11/2023 10:00 AM SCUBA DIVE TRAINING INSTRUCTOR Infusion Department of Oncology in [place], [place] [address] [place] [phone] Bev Giffodr APRN, C.N.P., M.S.N. [address] [place] [phone] 11/19/2023 10:00 AM CDT Office Visit Division of Endocrinology in [place], [place] [address] [place] [phone] West eMndoza APRN, C.N.P., M.S. [address] [place] [phone] 11/19/2023 2:30 PM CDT Comprehensive Visit Division of Hepatobiliary and Pancreas Surgery in [place], [place] [address] [place] [phone] Wesley Hamilton M.D. 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
--- OUTSIDE RECORDS SUMMARY | 2023-10-05 13:02 | XMS_ITS | Encounter Summary ---
Author Name Unknown Organization [facility] Address [address] [place] [address] Care Team Providers Care Mortar Mixer Operator Name Role Phone Elsewhere, Pcp Primary Care Provider Unavailabl e Reason for Visit * Reason Onset Date Comments Pre-visit Intake 05/28/2023 Encounter Details Date Type Department Care Team (Latest Contact Info) Description 05/28/2023 10:45 AM CDT Clinical Communication Virtual Review in [place], [place] 200 [place], [place] [phone] Pre-visit Intake Social History Tobacco Use Types [...] Answer Date Recorded PHQ-2 Score 0 04/25/2020 [facility] - Occupational Stress Questionnaire Answer Date Recorded [...] (Latest Contact Info) Description 10/06/2023 9:04 AM PROCESSING TALC AND BORATE SUPERVISOR - 10/06/2023 11:24 AM PROCESSING TALC AND BORATE SUPERVISOR Surgery [facility]IN OR [address] [place] [phone] Cameron Saenz M.D. [address] [place] [phone] ABDOMINAL EXPLORATION, REMOVAL ABTHERA, POSSBLE BOWEL RESECTION, PROCEED INDICATED 10/11/2023 7:00 AM PROCESSING TALC AND BORATE SUPERVISOR Appointment Department of Laboratory Medicine and Pathology, [facility], in [place], [place] [address] [place] [phone] Arti Epstein M.B.B.S. [address] [place] [phone] 10/11/2023 9:00 AM PROCESSING TALC AND BORATE SUPERVISOR Office Visit Division of Hematology in [place], [place] [address] [place] [phone] Arti Epstein M.B.B.S. [address] [place] [phone] 10/11/2023 10:00 AM PROCESSING TALC AND BORATE SUPERVISOR Infusion Department of Oncology in [place], [place] [address] [place] [phone] Bev Gifford APRN, C.N.P., M.S.N. [address] [place] [phone] 11/19/2023 10:00 AM CDT Office Visit Division of Endocrinology in [place], [place] [address] [place] [phone] West Mendoza APRN, C.N.P., M.S. [address] [place] [phone] 11/19/2023 2:30 PM CDT Comprehensive Visit Division of Hepatobiliary and Pancreas Surgery in [address] [phone] Wesley Hamilton M.D. [address] [place] [phone] Scheduled Procedures Name Priority Associated Diagnoses Date/Ti me LAPAROTOMY - ABDOMINAL WASHOUT Ischemia Intestinal With Stricture (HCC) 10/06/2023 9:04 AM PROCESSING TALC AND BORATE SUPERVISOR documented as of this encounter Visit Diagnoses Not on filedocumented in this encounter Additional Health Concerns Infection Onset Date Last Indicated Resolved Time Protective Environment 05/17/2023 05/17/2023 documented as of this encounter Care Teams Mortar Mixer Operator Relationship Specialty Start Date End Date Elsewhere, Pcp PCP - General Internal Medicine 05/11/23 09/13/23 documented as of this encounter
--- OUTSIDE RECORDS SUMMARY | 2023-10-05 13:02 | XMS_ITS | Encounter Summary ---
Author Name Unknown Organization [facility] Address [address] [place] [address] Care Team Providers Care Pull Through Hooker Name Role Phone Elsewhere, Pcp Primary Care Provider Unavailabl e Reason for Visit * Reason Onset Date Comments Diarrhea 05/28/2023 Encounter Details Date Type Department Care Team ([facility] st Contact Info) Description 05/28/2023 Clinical Communication Division of Hematology in [place], [place] [address] [place] [phone] Bety Castro M.D. [address] [place] [phone] Diarrhea (/) Social History Tobacco Use Types Packs/Day Years [...] How often do you attend chur or catholic services? Never 01/10/2023 Do you belong to any clubs o r organizations such as sabianist groups, unions, fraternal or athletic groups, or [...] (Latest Contact Info) Description 10/06/2023 9:04 AM PROPERTY INVESTOR - 10/06/2023 11:24 AM PROPERTY INVESTOR Surgery [facility] OR [address] [place] [phone] Cameron Saenz M.D. [address] [place] [phone] ABDOMINAL EXPLORATION, REMOVAL ABTHERA, POSSBLE BOWEL RESECTION, PROCEED INDICATED 10/11/2023 7:00 AM PROPERTY INVESTOR Appointment Department of Laboratory Medicine and Pathology, [facility], in [place], [place] [address] [place] [phone] Arti Epstein M.B.B.S. [address] [place] [phone] 10/11/2023 9:00 AM PROPERTY INVESTOR Office Visit Division of Hematology in [place], [place] [address] [place] [phone] Arti Epstein M.B.B.S. [address] [place] [phone] 10/11/2023 10:00 AM PROPERTY INVESTOR Infusion Department of Oncology in [place], [place] [address] [place] [phone] Bev Gifford APRN, C.N.P., M.S.N. [address] [place] [phone] 11/19/2023 10:00 AM CDT Office Visit Division of Endocrinology in [place], [place] [address] [place] [phone] West Mendoza APRN, C.N.P., M.S. [address] [place] [phone] 11/19/2023 2:30 PM CDT Comprehensive Visit Division of Hepatobiliary and Pancreas Surgery in [place], [place] [address] [place] [phone] Wesley Hamilton M.D. [address] [place] [phone] Scheduled Procedures Name Priority Associated Diagnoses Date/Ti me LAPAROTOMY - ABDOMINAL WASHOUT Ischemia Intestinal With Stricture (HCC) 10/06/2023 9:04 AM PROPERTY INVESTOR documented as of this encounter Visit Diagnoses Not on filedocumented in this encounter Additional Health Concerns Infection Onset Date Last Indicated Resolved Time Protective Environment 05/17/2023 05/17/2023 documented as of this encounter Care Teams Pull Through Hooker Relationship Specialty Start Date End Date Elsewhere, Pcp PCP - General Internal Medicine 05/11/23 09/13/23 documented as of this encounter
--- OUTSIDE RECORDS SUMMARY | 2023-10-05 13:03 | XMS_ITS | Encounter Summary ---
Author Name Unknown Organization [facility] Address [address] [place] [address] Care Team Providers Care Recreation Director Name Role Phone Elsewhere, Pcp Primary Care Provider Unavailabl e Encounter Details Date Type Department Care Team ([facility] st Contact Info) Description 05/18/2023 Orders Only Division of Hematology in [place], [place] [address] [place] [phone] Darian Tejada M.B.B.S. [address] [place] [phone] Social History Tobacco Use Types Packs/Day Years [...] any clubs o r organizations such as denominational groups, unions, fraternal or athletic groups, or [...] Answer Date Recorded PHQ-2 Score 0 04/25/2020 [facility] - Occupational [...] (Latest Contact Info) Description 10/06/2023 9:04 AM ORGAN GRINDER - 10/06/2023 11:24 AM ORGAN GRINDER Surgery [facility]IN OR [address] [place] [phone] Cameron Saenz M.D. [address] [place] [phone] ABDOMINAL EXPLORATION, REMOVAL ABTHERA, POSSBLE BOWEL RESECTION, PROCEED INDICATED 10/11/2023 7:00 AM ORGAN GRINDER Appointment Department of Laboratory Medicine and Pathology, [facility], in [place], [place] [address] [place] [phone] Arti Epstein M.B.B.S. [address] [place] [phone] 10/11/2023 9:00 AM ORGAN GRINDER Office Visit Division of Hematology in [place], [place] [address] [place] [phone] Arti Epstein M.B.B.S. [address] [place] [phone] 10/11/2023 10:00 AM ORGAN GRINDER Infusion Department of Oncology in [place], [place] [address] [place] [phone] Bev Gifford APRN, C.N.P., M.S.N. [address] [place] [phone] 11/19/2023 10:00 AM CDT Office Visit Division of Endocrinology in [place], [place] [address] [place] [phone] West Mendoza APRN C.N.P., M.S. [address] [place] [phone] 11/19/2023 2:30 PM CDT Comprehensive Visit Division of Hepatobiliary and Pancreas Surgery in [place], [place] [address] [place] [phone] Wesley Hamilton M.D. [address] [place] [phone] Scheduled Procedures Name Priority Associated Diagnoses Date/Ti me LAPAROTOMY - ABDOMINAL WASHOUT Ischemia Intestinal With Stricture (HCC) 10/06/2023 9:04 AM ORGAN GRINDER documented as of this encounter Visit Diagnoses Not on filedocumented in this encounter Additional Health Concerns Infection Onset Date Last Indicated Resolved Time Protective Environment 05/17/2023 05/17/2023 documented as of this encounter Care Teams Recreation Director Relationship Specialty Start Date End Date Elsewhere, Pcp PCP - General Internal Medicine 05/11/23 09/13/23 documented as of this encounter
--- OUTSIDE RECORDS SUMMARY | 2023-10-05 13:03 | XMS_ITS | Encounter Summary ---
Author Name Unknown Organization [facility] Address [address] [place] [address] Care Team Providers Care Sports Director Name Role Phone Elsewhere, Pcp Primary Care Provider Unavailabl e Reason for Referral * Outpatient (Routine) Specialty Diagnoses / Procedures Referred By Contac t Referred To Contact Hematology Oncology Molly Jarquin M.B.B.S., M.D. [address] [place] [address] [employer] Referral ID Status Reason Start Date Expiration Date Visits Re quested Visits Authorized Reason for Visit * Reason Comments Vomiting * Episode Based Medications (Routine) - Authorized Specialty Diagnoses / Procedures Referred By Contac t Referred To Contact Diagnoses Lymphoma Non Hodgkins (HCC) Procedures X Molly Jarquin M.B.B.S., M.D. [address] [place] [address] [address] [facility] [address] [place] [address] Referral ID Status Reason Start Date Expiration Date V isits Requested Visits Authorized [id number] Authorized 05/17/2023 05/16/2025 99 99 Encounter Details Date Type Department Care Team (Late st Contact Info) Description 05/11/2023 7:07 PM CDT - 05/23/2023 1:14 PM CDT Hospital Encounter [facility], [facility], Seventh Floor [address] [place] [phone] Truman Baum M.D. [address] [place] [address] [phone] Sandra Kennedy M.D., M.S. [address] [place] [address] [phone] Jose Dalal M.D. [address] [place] [address] [phone] Darian Tejada M.B.B.S. [address] [place] [address] [phone] Vomiting (Primary Dx); Malignant Neoplasm Of Duodenum (HCC); Debility [R53.81 (ICD-10-CM)]; Decline Functional Status [R53.81 (ICD-10-CM)]; Mass Duodenum; Lymphoma Non Hodgkins (HCC) Discharge Disposition: Home [...] often do you attend chur ch or spiritism services? Never 01/10/2023 Do you belong to any clubs o r organizations such as religious groups, unions, fraternal or athletic groups, or [...] 0 04/25/2020 [facility] Occupat ional [facility] - Occupational Stress [...] Sign Reading Time Taken Comments Blood Pressure 108/63 05/23/2023 12:23 PM CDT Pulse 66 05/23/2023 12:23 PM CDT Temperature 37 ??C (98.6 ??F) 05/23/2023 12:23 PM CDT Respiratory Rate 18 05/23/2023 12:23 PM CDT Oxygen Saturation 97% 05/23/2023 12:23 PM CDT Inhaled Oxygen Concentration - - Weight 83.6 kg (184 lb 4.9 oz) 05/23/2023 8:59 A M CDT Height 175 cm (5' 8.9) 05/16/2023 6:47 PM CDT Body Mass Index 27.3 05/16/2023 6:47 PM CDT documented in this encounter Discharge Summaries * Miguel Fishman M.D., Ph.D. - 05/23/2023 11:19 AM CDT DISCHARGE SUMMARY BRIEF OVERVIEW Discharge Provider: Jose Dalal M.D. Primary Care Providers: Elsewhere, Pcp (General) No address on file Discharge Provider Team: RST HEMATOLOGY 3 Primary Care Provider Phone Number: None Primary Care Provider Fax Number: None Admission Date: 05/11/2023 Discharge Date: 05/23/23 PRINCIPAL DIAGNOSIS Mass Duodenum SECONDARY DIAGNOSES Principal Problem: Mass Duodenum Active Problems: Diabetes Mellitus Type 2 With Diabetic Neuropathy (HCC) Hypertension Essential Primary Hypothyroidism 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 Hyperlipidemia Apnea Sleep Obstructive Chronic Kidney Disease Stage 2 Glomerular Filtration Rate 60 To 89 Nausea And Vomiting Vomiting Lymphoma Non Hodgkins (HCC) Other Fpc Current Drug Therapy Resolved Problems: * No resolved hospital problems. * DISCHARGE DISPOSITION Home or Self Care [1] ACTIVE ISSUES REQUIRING FOLLOW UP CHANGES TO YOUR MEDICATIONS Please START taking the following medications: Acyclovir 400 mg twice daily Inhaled Pentamidine once per month (last dose 05/20) Both of these medications should be taken throughout your chemotherapy course Please change how you take the following medications: All medications prescribed as through the small bowel tube should be taken orally. Please STOP taking the following medications: Lansoprazole Continue taking all other medications as before. FOR PATIENT: Please slowly advance your diet back to a regular diet. There are no particular foods to avoid, butplease be sure to chew your food well and avoid overeating or foods you know have caused you bloating in the past. For the next few days we would recommend eating foods that contain phosphorus, theseinclude but are not limited to poultry, seafood, dairy, potatoes and whole grains. Please take common sense precautions to avoid infections. This includes avoiding people who are actively sick or are likely to be sick (such as small children who attend daycare) as possible. It is also safest to avoid large crowds, and/or wear a mask when around large groups of other people. If you develop a sudden, severe abdominal pain please report to the emergency room immediately. Your cancer was surrounding your small intestine and these symptoms could be associated with a perforation of your small intestine that would need emergency treatment. NUTRITION Nutrition dismissal summary completed by: Liliana Mittal RDN, LD Date Completed: 05/21/2023 Phone contact: Diet Order: Soft Nutrition Discharge Plan: Patient was assessed as severely malnourished during this hospitalization based upon the ASPEN criteria. Outpatient follow-up recommended by LORNAN: Recommend PCP monitor patient and refer for outpatient follow-up with dietitian regarding malnutrition as indicated FOR PCP: Please evaluate for malnutrition at next appointment. Regular diet has been resumed following relief of the obstruction after first round of lymphoma- targeted therapy. FOLLOW UP APPOINTMENTS: GCSF injection today (05/23) at [facility] 8 desk 8G Follow-up visit with laboratory testing, clinic visit with Dr. Goldberg, and likely second round of chemotherapy on 06/10 Possible GCSF injection on 06/11, but this will be coordinated by your outpatient team TEST RESULTS PENDING AT DISCHARGE Pending Labs None DETAILS OF HOSPITAL STAY REASON FOR ADMISSION Mass Duodenum HOSPITAL COURSE Mr. Lau is a 72 year old male hospitalized for evaluation and management of inability to tolerate tube feeds in the setting of newly diagnosed duodenal mass, likely B cell lymphoma. His medical comorbidities include thyroid cancer, postsurgical hypothyroidism, T2DM, CKD stage 2, gout, hypertension, and hyperlipidemia. Prior to Admission: Of note, he was recently hospitalized on 04/29 to 05/07 for nausea/vomiting and abdominal pain and was found to have a partially obstructive duodenal mass, highly suspicious for B cell lymphoma (biopsywas indeterminate due to crush artifact and degenerative changes). He had an NJ tube placed with difficulty tolerating feeds due to nausea and vomiting but was eventually able to tolerate his feeds and discharged home in stable condition. He was then evaluated in the outpatient setting by Drs. Castro and Mark. ED Course: The patient had difficulty tolerating feeds at home and began to experience emesis after feeds two days after discharge regardless of the rate or amount of feeds. He presented to the ED where CT imaging reconfirmed an FDG avid mass in the 3rd aspect of the duodenum and showed a properly placed enteric tube with the tip in the distal jejunum, as well as gastric distention and mild inflammatory stranding involving the duodenum. GI-B Course (05/12-05/16) The patient arrived to the floor in stable condition. Nutrition was consulted and recommended Peptamen 1.5 with a goal of 65 mL/hr with some difficulty initially tolerating his feeds. The patient hadhis NJ tube replaced with a Dobbhoff with a gastric aspiration port and jejunal extension with 2 L of bilious fluid removed on placement. He has had improved tolerance of tube feeds with gastric aspiration as needed and is currently at 40 mL/hr of feeds. The patient was monitored for refeeding withelectrolytes grossly stable. He was started on IV thiamine given concern for repletion. He had an ROMEO on admission that has improved with fluid resuscitation. Hematology was consulted regarding switching outpatient workup to inpatient for duodenal mass. EGD with duodenal biopsy performed on 05/[address] guided mesenteric lymph node biopsyperformed with preliminary results suspicious for lymphoma. Bone marrow biopsy with normal immunophenotyping results as well as no morphologic or immunophenotypic features of involvement by lymphoma.EF 75%. Hematology feels that there is enough information to begin lymphoma directed treatment so the patient will be tested for COVID, started on 1 g IV methylprednisolone, and transferred to Hematology 3. Hematology 3 (05/16 - 05/23) The patient received 4 total doses of IV methylprednisolone. 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 Patient was started on Rituximab on 05/18. On 05/20, his symptoms of nausea, vomiting had improved to the point that oral diet was trialed andsuccessful. On 05/21, NJ tube was removed and the remainder of chemotherapy was started (Romaine-R-CHP). He received appropriate prophylactic medications including pentamidine (05/20), acyclovir, lansoprazole, allopurinol. He tolerated chemotherapy well and was discharged on 05/23 in stable condition. Further lymphoma treatment will be arranged to occur outpatient. MEDICATION CHANGES THIS ADMISSION Medications stopped: Lansoprazole Medications changed: Please take all medications that were previously prescribed as via NG tube by mouth Medications added: Acyclovir 400 mg twice daily Inhaled Pentamidine once per month (last dose 05/20) Patient to Follow-Up GCSF injection today at [facility] 8 desk 8G Follow-up visit with laboratory testing, clinic visit with Dr. Goldberg, and likely second round of chemotherapy on 06/10 Possible GCSF injection on 06/11, but this will be coordinated by Dr. Goldberg CONDITION AT DISCHARGE stable Miguel Fishman M.D., Ph.D. PGY-1 Internal Medicine [facility] Pager [phone] Associated attestation - Jose Dalal M.D. - 05/23/2023 5:30 PM CDT I saw the patient on the day of discharge and agree with the discharge plans and disposition. * Prem Willson R.N. - 05/16/2023 7:21 PM CDT Patient transferred to station 7-3 at [facility]. Report was given to Massiel Leos RN, and all questions were answered. Patient's personal items and supplies were sent with him when the [facility] team came to pick him up to escort him to the transfer unit. Electronically signed by: Prem Willson R.N. 05/16/23 7:22 PM CDT * Kenia Bhandari M.D. - 05/16/2023 1:48 PM CDT RST Gastroenterology B to Hematology 3 Transfer Note Hospital Course: Mr. Lau is a 72 year old male hospitalized for evaluation and management of inability to tolerate tube feeds in the setting of newly diagnosed duodenal mass, likely B cell lymphoma. His medical comorbidities include thyroid cancer, postsurgical hypothyroidism, T2DM, CKD stage 2, gout, hypertension, and hyperlipidemia. Prior to Admission: Of note, he was recently hospitalized on 04/29 to 05/07 for nausea/vomiting and abdominal pain and was found to have a partially obstructive duodenal mass, highly suspicious for B cell lymphoma (biopsywas indeterminate due to crush artifact and degenerative changes). He had an NJ tube placed with difficulty tolerating feeds due to nausea and vomiting but was eventually able to tolerate his feeds and discharged home in stable condition. He was then evaluated in the outpatient setting by Drs. Castro and Mark. ED Course: The patient had difficulty tolerating feeds at home and began to experience emesis after feeds two days after discharge regardless of the rate or amount of feeds. He presented to the ED where CT imaging reconfirmed an FDG avid mass in the 3rd aspect of the duodenum and showed a properly placed enteric tube with the tip in the distal jejunum, as well as gastric distention and mild inflammatory stranding involving the duodenum. GI-B Course (05/12-05/16) The patient arrived to the floor in stable condition. Nutrition was consulted and recommended Peptamen 1.5 with a goal of 65 mL/hr with some difficulty initially tolerating his feeds. The patient hadhis NJ tube replaced with a Dobbhoff with a gastric aspiration port and jejunal extension with 2 L of bilious fluid removed on placement. He has had improved tolerance of tube feeds with gastric aspiration as needed and is currently at 40 mL/hr of feeds. The patient was monitored for refeeding withelectrolytes replaced as needed. He was started on IV thiamine given concern for repletion. He had an ROMEO on admission that has improved with fluid resuscitation. Hematology was consulted regarding switching outpatient workup to inpatient for duodenal mass. EGD with duodenal biopsy performed on 05/[address] guided mesenteric lymph node biopsyperformed with preliminary results suspicious for lymphoma. Bone marrow biopsy with normal immunophenotyping results as well as no morphologic or immunophenotypic features of involvement by lymphoma.EF 75%. Hematology feels that there is enough information to begin lymphoma directed treatment so the patient will be tested for COVID, started on 1 g IV methylprednisolone, and transferred to Hematology 3 Follow up items: -follow up final duodenal and mesenteric lymph node biopsy results -continue to uptitrate tube feeds by 10 mL/hr every 12 hours to a goal of 65 mL/hr. The patient is currently at 40 mL/hr -continue low intermittent suction gastric aspiration at least BID and PRN for patient comfort -can consider decreasing maintenance fluids as the patient has improved enteral nutrition -continue to monitor prerenal ROMEO with daily BMP and cystatin C (baseline Cr 0.8) -will finish course of IV thiamine given concern for refeeding syndrome (ends on 05/17) as well as continue multivitamin -continue to monitor for refeeding (K, Mg, Phos) and replete as needed -per Hematology consult team, daily TLS labs documented in this encounter Discharge Instructions * Discharge Instructions* Hola Sousa - 05/14/2023 7:45 AM CDT You were discharged from the [facility] Gastroenterology B Service. Please identify this service name if you call with questions after hospitalization. * Discharge Instr - Diet* Liliana Mittal RDN, LD - 05/21/2023 12:46 PM CDT NUTRITION Nutrition dismissal summary completed by: Liliana Mittal RDN, LD Date Completed: 05/21/2023 Phone contact: Height: 175 cm Weight: 80.1 kg Admission Weight: 82 kg BMI (Calculated): 26.2 kg/m?? Diet Order: Soft Estimated Needs: Total Calorie Needs: 9776-2749 calories/day Method to Estimate Energy Needs: kcal/kg (25-30 kcal/kg) Weight Used for Equation Calculations: 82 kg Total Protein Needs: 98 - 123 grams/day Method to Estimate Protein Needs (g/kg): 1.2 - 1.5 gm/kg Weight Used to Calculate Protein Needs (Kg): 82 kg * Attachments The following attachments cannot be sent through Care Everywhere. * Acyclovir (By mouth) (Nepali) documented in this encounter Medications at Time of Discharge Medication Sig Dispensed Refills Start Date End Date allopurinoL (ZYLOPRIM) 300 mg tablet Take 1 tablet (300 mg total) by mouth daily. 30 tablet 0 05/24/2023 amitriptyline (ELAVIL) 25 mg tablet Administer 0.5 tablets (12.5 mg total) via small bowel tube at bedtime as needed (neuropathy). 15 tablet 0 05/07/2023 ondansetron ODT (ZOFRAN-ODT) 8 mg disintegrating tablet Dissolve 1 tablet (8 mg total) in the mouth every 8 (eight) hours as needed for nausea or vomiting. 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 100 each 3 07/18/2022 probenecid-colchicine (COLBENEMID) 500-0.5 mg per tablet Administer 1 tablet via small bowel tube 2 (two) times a day as needed (gout flare). 60 tablet 0 05/07/2023 06/06/2023 acetaminophen (TYLENOL) 500 mg tablet Administer 1 [...] with dinner. 100 tablet 3 05/07/2023 08/07/2023 ondansetron (ZOFRAN) 4 mg tablet Take 4 mg by mouth every 8 (eight) hours as needed for nausea or vomiting. 0 04/27/2023 06/07/2023 pantoprazole (PROTONIX) 20 mg EC tablet Take 40 mg by mouth every morning before breakfast. 0 07/19/2023 vit27,calcium/iron/FA (multivitamin/mineral -) tablet Administer 1 tablet via small bowel tube daily. 90 tablet 3 05/07/2023 08/07/2023 simvastatin (ZOCOR) 20 mg tablet Administer 1 tablet (20 mg total) via small bowel tube at bedtime. 90 tablet 3 05/07/2023 08/07/2023 documented as of this encounter Progress Notes * Miguel Fishman M.D., Ph.D. - 05/22/2023 1:54 PM CDT Images from the original note were not included. HEMATOLOGY 3 SERVICE No care food court team member to display Drs. Lim and Mark Mr. Hola Lau is a 72 y.o. male with duodenal mass with pathology ultimately positive fordiffuse large B cell lymphoma admitted on 05/13/2023 (Hospital Day 9) for evaluation and management of inability to tolerate tube feeds. SUBJECTIVE No acute events overnight. Tolerating PO intake with no issues whatsoever. This morning he feels well and denies any acute complaints. OBJECTIVE VITAL SIGNS Temperature: [36.3 ??C-36.8 ??C] 36.3 ??C Resp Rate: [15-17] 16 Blood Pressure: (94-112)/(51-58) 112/58 SpO2: [93 %-95 %] 95 % Weight: [83.1 kg] 83.1 kg BMI (Calculated): [27.1 kg/m??] 27.1 kg/m?? Pulse Rate: [49-66] 66 Last BM Date: 05/22/23 PHYSICAL EXAM Unchanged General: Normal-appearing elderly male, in no acute distress Cardiovascular: Regular rate and rhythm, normal S1, S2, no appreciable lower extremity edema, extremities warm and well perfused Lungs: Breathing comfortably on room air, anterior lung atkinson clear to auscultation bilaterally Abdomen: Bowel sounds present, no tenderness to palpation, no guarding, no rigidity Neuro: grossly intact to observation, responds appropriately to questions and commands, clear speech Psych: Pleasant, cooperative, invested in care Recent Labs 05/22/23 0015 05/21/23 0444 05/20/23 0009 05/19/23 0003 05/18/23 0604 HGB 8.3 L 9.0 L 8.3 L 9.0 L 11.1 L WBC 5.7 4.7 2.4 L 3.4 3.8 PLT 175 183 190 215 345 H ASSESSMENT / PLAN Mr. Lau is a 72 year old male hospitalized for inability to tolerate tube feeds in the setting of newly diagnosed duodenal mass confirmed to be diffuse large B cell lymphoma. His medical comorbidities include thyroid cancer, postsurgical hypothyroidism, T2DM, CKD stage 2, gout, hypertension, and hyperlipidemia. Received rituximab on 05/18 and the Romaine and CH components of Romaine-R-CHP on 05/21. We will monitor TLSlabs this afternoon and again tomorrow morning. From a symptomatic standpoint he has significantly improved and is tolerating oral intake without any nausea, vomiting, or abdominal pain. He did need phosphorus repleted this morning for likely refeeding syndrome. Assuming repeat laboratory testing is not concerning, he can discharge home tomorrow. We will arrange for the next cycle and begin prophylactic medications. He will get his GCSF injection shortly after discharge tomorrow. Plan for today: TLS labs 3:00 p.m. and tomorrow morning Encourage PO intake Transition medications back to oral now that NG tube has been removed 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 , stage IV #Possible microperforation in transverse duodenum (CTAP 05/11/23) #Poor enteral nutrition #Nausea with emesis, resolving #Unintentional weight loss #Gastric distension #Concern for refeeding syndrome Plan S/p Rituximab infusion, 1st dose 05/18 S/p lymphoma directed regimen on 05/21 Polatuzamab Cyclophosphamide Doxorubicin Prednisone TLS/ID/GI Prophylaxis: s/p pentamidine on 05/20 acyclovir 400 mg BID transition lansoprazole to pantoprazole 40 mg daily now that he can tolerate PO intake allopurinol 300 mg daily s/p 4 doses 1 g IV methylprednisolone q6 PRN Compazine for nausea Transfuse to keep hemoglobin > 7 and platelets > 10k. Patient does not require premed prior to RBCs and platelets. # ROMEO on CKD, improving # CKD2 (baseline Cr approx 0.8) Likely prerenal in the setting of poor tube feed intake. fluid resuscitation as indicated, encouraged PO intake # Diabetes Mellitus Type 2 With Neuropathy Hold home Jardiance and metformin Moderate CS (goal 140 - 180) # Gout allopurinol 300 mg daily # Hypothyroidism Post-Surgical continue home levothyroxine # Hyperlipidemia Restart statin and aspirin today Current Activity/Mobility: BMAT Level 4 (Able to stand and walk; needs staff assist if fall risk factors identified) Diet: tube feeds, PO ice chips and water for comfort diet Tubes/lines: PIV VTE prophylaxis: heparin Code status: Full Code Disposition: Uncertain with expected discharge date uncertain Stable to discharge criteria (not met): Nutrition/hydration and Tests/procedures/consults Severe Malnutrition The patient meets the ASPEN Criteria of malnutrition based on: Average estimated Intake: Less than or equal to 50% for 5 or more days Weight Loss: >5% in 1 month Body Fat: Moderate Loss Muscle Mass: Severe Loss This is in the context of Acute Illness or Injury. Agree with Registered Dietitian's assessment and treatment plan: Nutrition Interventions Interventions: Enteral nutrition, Vitamin and mineral supplements Plan discussed with Hematology 3 Social Work Instructor, Jose Forbes M.D., who was present during the keyportions of the evaluation today. [place] Hematology 3 [place] [phone] with any questions. Miguel Fishman M.D., Ph.D. PGY-1 Internal Medicine [facility] Pager [phone] Associated attestation - Jose Dalal M.D. - 05/22/2023 2:45 PM CDT I saw and evaluated the patient, participating in the duncan portions of the service. I reviewed the resident/fellow???s note. I agree with the resident/fellow???s findings and plan. * Kolby Lane - 05/21/2023 2:07 PM CDT SUBJECTIVE Social work attempted to meet with patient for supportive visit 3 different times. Each time patient was with provider or sleeping from his medication. Social work asked nursing if patient might be open for it and nursing said that tomorrow would be a better time for a visit. OBJECTIVE Patient 72 y.o. male admitted for duodenal mass found to be lymphoma, starting treatment. ASSESSMENT / PLAN ASSESSMENT Patient not assessed. PLAN Social work will continue to follow for discharge needs and supportive visit. Social work will follow with patient tomorrow 05/22/[address] COMPUTING SERVICES DIRECTOR, DIRECTOR SOFTWARE 05/21/23 * Isauro Farris M.D. - 05/21/2023 1:20 PM CDT Images from the original note were not included. HEMATOLOGY 3 SERVICE No care food court team member to display Drs. Lim and Mark Mr. Hola Lau is a 72 y.o. male with duodenal mass concerning for B cell lymphoma (pathology pending) admitted on 05/13/2023 (Hospital Day 8) for evaluation and management of inability to tolerate tube feeds. Transferred to [facility] 05/16 for supportive care and consideration of chemotherapy induction. SUBJECTIVE No acute events overnight. He was able to tolerate lunch and dinner without significant nausea, vomiting, or abdominal pain. This morning, he feels well denies any acute complaints. OBJECTIVE VITAL SIGNS Temperature: [36.2 ??C-36.8 ??C] 36.4 ??C Resp Rate: [14-18] 14 Blood Pressure: (105-118)/(55-75) 109/61 SpO2: [97 %-100 %] 98 % Flow Rate (L/min): [0 L/min] 0 L/min Weight: [80.1 kg] 80.1 kg BMI (Calculated): [26.2 kg/m??] 26.2 kg/m?? Pulse Rate: [51-79] 51 Last BM Date: 05/19/23 PHYSICAL EXAM Unchanged General: Normal-appearing elderly male, in no acute distress Cardiovascular: Regular rate and rhythm, normal S1, S2, 1/6 systolic murmur consistent with mild-moderate , no appreciable lower extremity edema, extremities warm and well perfused Lungs: Breathing comfortably on room air, anterior lung atkinson clear to auscultation bilaterally Abdomen: Bowel sounds present, no tenderness to palpation, no guarding, no rigidity, NJ tube in place (known to be coiled and stomach), Neuro: grossly intact to observation, responds appropriately to questions and commands, clear speech Psych: Pleasant, cooperative, invested in care Recent Labs 05/21/23 0444 05/20/23 0009 05/19/23 0003 05/18/23 0604 05/17/23 0559 HGB 9.0 L 8.3 L 9.0 L 11.1 L 10.9 L WBC 4.7 2.4 L 3.4 3.8 4.6 PLT 183 190 215 345 H 219 ASSESSMENT / PLAN Mr. Lau is a 72 year old male hospitalized for inability to tolerate tube feeds in the setting of newly diagnosed duodenal mass, likely B cell lymphoma. His medical comorbidities include thyroid cancer, postsurgical hypothyroidism, T2DM, CKD stage 2, gout, hypertension, and hyperlipidemia. He initially presented on 04/29/23 with abdominal pain, constant dizziness, and vomiting after eating. The patient was hospitalized (04/29/23 - 05/07/23) for nausea/vomiting and abdominal pain found to have duodenal mass highly suspicious for B cell lymphoma (biopsy indeterminate due to crush artifactand degenerative changes). Lymphoid infiltrates stained positive extensively for CD20, PAX5, CD10, BCL6, and BCL2. Ki-67 at least 60%. He was discharged with an NJ tube, but did not tolerate due to nausea and vomiting and weight loss (86.8 kg to 82 kg). He returned to the hospital on 05/13/23. The current admission is in the context of subacute progressive postprandial nausea, vomiting, abdominal pain resulting in significant weight loss (40+ lb) since January 2023. Final duodenal biopsy results have returned. There was no evidence of double hit lymphoma. He was received 4 doses of methylprednisolone and has started rituximab. Today, we will proceed with the remainder of Romaine-R-CHP (Romaine CH). His symptoms have continued to improve and he was now tolerating oral intake without nausea, vomiting, or abdominal pain. Given this, we will remove his NJ tube today. Pending his tolerance of chemotherapy, will likely move for discharge tomorrow (05/22). We will arrange for the next cycle and begin prophylactic medications. 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 , stage IV #Possible microperforation in transverse duodenum (CTAP 05/11/23) #Poor enteral nutrition #Nausea with emesis, resolving #Unintentional weight loss #Gastric distension #Concern for refeeding syndrome Plan - S/p Rituximab infusion, 1st dose 05/18 - initiate lymphoma directed regimen on 05/21 -polatuzamab -cyclophosphamide -doxorubicin -prednisone -TLS/ID/GI Prophylaxis: -s/p pentamidine on 05/20 -acyclovir 400 mg BID -lansoprazole 30 mg daily -allopurinol 300 mg daily - 1 g IV methylprednisolone, s/p 4 doses - remove NJ tube -q6 PRN Compazine for nausea - Transfuse to keep hemoglobin > 7 and platelets > 10k. Patient does not require premed priorto RBCs and platelets. # ROMEO on CKD, improving # CKD2 (baseline Cr approx 0.8) Likely prerenal in the setting of poor tube feed intake. Cystatin C improving. - fluid resuscitation as indicated, will receive some with chemo administration # Diabetes Mellitus Type 2 With Neuropathy - Hold home Jardiance and metformin - Moderate CS (goal 140 - 180) # Gout - Resume allopurinol 300 mg daily while NPO for TLS prophylaxis # Hypothyroidism Post-Surgical - Continue LICENSED MIDWIFE levothyroxine # Hyperlipidemia - Holding statin (changed to atorvastatin 20mg here), LICENSED MIDWIFE aspirin for ASCVD ppx while NPO -plan to resume aspirin and atorvastatin pending tolerance of chemotherapy Current Activity/Mobility: BMAT Level 4 (Able to stand and walk; needs staff assist if fall risk factors identified) Diet: tube feeds, PO ice chips and water for comfort diet Tubes/lines: PIV VTE prophylaxis: heparin Code status: Full Code Disposition: Uncertain with expected discharge date uncertain Stable to discharge criteria (not met): Nutrition/hydration and Tests/procedures/consults Severe Malnutrition The patient meets the ASPEN Criteria of malnutrition based on: Average estimated Intake: Less than or equal to 50% for 5 or more days Weight Loss: >5% in 1 month Body Fat: Moderate Loss Muscle Mass: Severe Loss This is in the context of Acute Illness or Injury. Agree with Registered Dietitian's assessment and treatment plan: Nutrition Interventions Interventions: Enteral nutrition, Vitamin and mineral supplements Plan discussed with Hematology 3 Social Work Instructor, Darian Juan M.B.B.SJohanna, who was present duringthe duncan portions of the evaluation today. [place] 3 [place] [phone] with any questions. Isauro Farris M.D. Internal Medicine, PGY 2 Associated attestation - Darian Tejada M.B.B.S. - 05/21/2023 5:34 PM CDT I saw and evaluated the patient, participating in the duncan portions of the service. I reviewed the resident/fellow???s note. I agree with the resident/fellow???s findings and plan. The patient has tolerated an oral diet very well without any major nausea, abdominal discomfort or other symptoms of concern. We will therefore proceed with removal of the NJ tube at bedside. The patient will also receive treatment with polatuzumab vedotin with CHP later today, and be ready for discharge tomorrow - he should receive Neulasta in the outpatient setting. * Liliana Mittal RDN, PORSHA - 05/21/2023 12:42 PM CDT Nutrition Support Service Progress Note SUBJECTIVE Mr. Lau is a 72 y.o. male admitted for duodenal mass found to be lymphoma, starting treatment. Current Nutrition (since admission): Intolerance of NJ tube feeding due to need for gastric decompression. Patient eventually got a Dobhoff tube placed in EGD but this unfortunately became misplaced and is now coiled in the stomach. His tolerance of jejunal feeding had improved until this happened and then tube feeding shut off. Tube feeding off 05/17 to present. Pt has commenced on lymphoma treatment now. He feels like he is able to tolerate some oral intake. We are hopeful he can maintain on oral intake and we can just remove the tube. Discussed emphasis on liquid nutrition but also intake of soft solid foods as tolerated. OBJECTIVE Current nutrition orders: Current Diet Adult Diet Mechanical Soft starting at 05/20 1055 Nutrition Focused Physical Assessment and Malnutrition Assessment Average estimated Intake: Less than or equal to 50% for 5 or more days Weight Loss: >5% in 1 month Body Fat: Moderate Loss Muscle Mass: Severe Loss Nutritional Status: Severe Malnutrition Malnutrition in the Context of: Acute Illness or Injury ANTHROPOMETRICS: Height: 175 cm Admission Weight: 82 kg (05/11/2023) Current Weight: 80.1 kg Reyno Body Weight (Calculated) : 70.2 kg BMI (Calculated): 26.2 kg/m?? Weight change since admission: -1.9 kg Weight Change History: Weight loss, 4.5 kg, 5.2% in 1 month, 13.1 kg, 13.8% in less than 6 months ESTIMATED NEEDS: Total Calorie Needs: 3535-9805 calories/day Method to Estimate Energy Needs: kcal/kg (25-30 kcal/kg) Weight Used for Equation Calculations: 82 kg Total Protein Needs: 98 - 123 grams/day Method to Estimate Protein Needs (g/kg): 1.2 - 1.5 gm/kg Weight Used to Calculate Protein Needs (Kg): 82 kg NUTRITION DIAGNOSIS: Inadequate oral intake related to current illness as evidenced by need for nutrition support Nutrition Diagnosis Reassessment: Ongoing NUTRITION PLAN/MONITORING/EVALUATION: Interventions: Enteral nutrition, Vitamin and mineral supplements Monitoring: Diet Progression/NPO Status, Enteral, Skin Integrity, Pertinent Labs, Comparative Standards, Weight Status, Nausea/Vomiting/Diarrhea ASSESSMENT / PLAN Patient meets ASPEN/AND criteria for Severe Malnutrition (05/12/2023 3:23 PM) RECOMMENDATIONS: Continue Mechanical Soft diet. Consider removal of nasal tube if patient continues to do well. Patient will need to coordinate return of his home tube feeding supplies with [facility]. Discussed thiswith him and his today. Nutrition Support Service ([facility]) will continue to follow. Page [phone] with questions. * Dave Oneil Pharm.D., R.Ph. - 05/21/2023 9:58 AM CDT Pharmacist Progress Note 72 y.o. male transferred for initiation of chemotherapy. PMH: T2DM, CKD stage 2, gout, hypertension, and hyperlipidemia OBJECTIVE Home medications being held/changed: Held: empagliflozin, ixekizumab, metformin, , colbenemid Changed: simvastatin > atorvastatin VTE prophylaxis: heparin SQ 5000 U TID GI prophylaxis: lansoprazole 30 mg suspension daily ID prophylaxis: pentamidine (given 05/20), acyclovir ASSESSMENT / PLAN #Hematology Work-up: 05/09 hepatitis serologies negative 05/14 BMBx: no morphologic or immunophenotypic features of lymphoma 05/14 FNA of mesenteric lymph node: DLBCL; double expresser 05/15 ECHO LVEF 75% 05/16 COVID negative 05/16-05/20: Solumedrol 1 g daily C1D1 Romaine-R-CH = 05/18 Rituximab 05/18 Romaine-CH on 05/21 Aloxi premed given 05/21, do not give Zofran for 48 hours post Aloxi due to duplication of therapy. No prednisone with C1 d/t ongoing methylpred Pegfilgrastim added to day 4 #TLS Monitoring LDH WNL 189, uric acid WNL G6PD adequate for rasburicase use if needed Continue allopurinol 300 mg daily for prevention Encourage oral intake; will also start NS @ 75 mL/hr initially on 05/21; goal UOP of at least 100 mL/hour #Nutrition Pulling NJ tube 05/21 and resuming oral intake Changes to medications anticipated at discharge: New: TBD Changes: TBD Discontinue: TBD Rx approval pending: none Dispo: TBD Dave Oneil Pharm.D., R.Ph. * Dave Oneil Pharm.D., R.Ph. - 05/20/2023 2:07 PM CDT Pharmacist Progress Note 72 y.o. male transferred for initiation of chemotherapy. PMH: T2DM, CKD stage 2, gout, hypertension, and hyperlipidemia OBJECTIVE Home medications being held/changed: Held: empagliflozin, ixekizumab, metformin, , colbenemid Changed: simvastatin > atorvastatin VTE prophylaxis: heparin SQ 5000 U TID GI prophylaxis: lansoprazole 30 mg suspension daily ID prophylaxis: pentamidine (given 05/20), will need acyclovir when NJ accessible ASSESSMENT / PLAN #Hematology Work-up: 05/09 hepatitis serologies negative 05/14 BMBx: no morphologic or immunophenotypic features of lymphoma 05/14 FNA of mesenteric lymph node: prelim suspicious for malignancy, abnormal lymphoid population 05/15 ECHO LVEF 75% 05/16 COVID negative Management: 05/16-05/20: Solumedrol 1 g daily C1D1 Romaine-R-CH = 05/18 Rituximab 05/18 Romaine-CH on 05/21 pending complete biopsy results No prednisone with C1 d/t ongoing methylpred Pegfilgrastim added to day 4 #TLS Monitoring LDH WNL 189, uric acid WNL G6PD pending Continue allopurinol 300 mg daily for prevention Encourage oral intake and consider initiation of continuous fluids if unable to keep up with adequate oral intake; goal UOP of at least 100 mL/hour #Nutrition Currently has Dobbhoff and jejunal extension in place as of 05/14 All medications through tube at this time Changes to medications anticipated at discharge: New: TBD Changes: TBD Discontinue: TBD Rx approval pending: none Dispo: TBD Dave Oneil Pharm.D., R.Ph. * Nayely Barahona R.R.T., L.R.T. - 05/20/2023 1:26 PM CDT A pentamidine nebulizer was given to Hola Lau in a Private Patient Care Room with Door Closed. Patient was pre-treated with an albuterol nebulizer by RN. Patient tolerated procedure well. Aerosol generating procedure done wearing N95 mask or PAPR. Placed 30 minute notification outside of patient room. Electronically signed by: Nayely Barahona R.R.T., L.R.T. 05/20/23 1:26 PM CDT * Nery Diamond M.B., Ch.B. - 05/20/2023 11:39 AM CDT SUBJECTIVE Mr. Lau was in good spirits this morning when we visited. He is hungry and has been advanced toa soft diet. He has not required venting from the gastric port of the dual-lumen Dobbhoff tube for many days. He is having watery rectal output, with gas and a few flecks of stool. He was started on rituximab and high-dose steroid therapy a few days ago. OBJECTIVE VITAL SIGNS Temperature: [36.2 ??C-36.9 ??C] 36.2 ??C Resp Rate: [16-18] 18 Blood Pressure: (94-123)/(50-63) 102/54 SpO2: [95 %-97 %] 97 % Weight: [80.1 kg] 80.1 kg BMI (Calculated): [26.2 kg/m??] 26.2 kg/m?? Pulse Rate: [53-60] 57 Intake/Output Summary (Last 24 hours) at 05/20/2023 1139 Last data filed at 05/20/2023 1100 Gross per 24 hour Intake 116 ml Output 800 ml Net -684 ml Results from last 7 days Lab Units 05/20/23 0009 05/17/23 0559 05/17/23 0551 SODIUM mmol/L 138 < > -- CHLORIDE mmol/L 106 < > -- BUN mg/dL 18 < > -- CREATININE mg/dL 0.95 < > -- CALCIUM mg/dL 7.0* < > -- ALBUMIN g/dL -- -- 3.1* BILIRUBIN TOTAL mg/dL -- -- 0.2 ALK PHOS U/L -- -- 87 ALT U/L -- -- 12 AST U/L -- -- 19 GLUCOSE S mg/dL 215* < > -- < > = values in this interval not displayed. Results from last 7 days Lab Units 05/20/23 0009 WBC x10(9)/L 2.4* HEMOGLOBIN g/dL 8.3* HEMATOCRIT % 26.7* MCV fL 78.5 PLATELETS AUTO x10(9)/L 190 PHYSICAL EXAM Constitutional Comments: He is resting in bed, in no distress. There is a dual-lumen nasal enteric tube in place, clamped Abdominal Comments: The abdomen is soft and nontender to palpation DIAGNOSTICS I have reviewed the labs and diagnostics over the past 24 hrs. Nutrition Needs: BMI (Calculated) 26.2 kg/m?? (05/20/23 0746) ASSESSMENT / PLAN #1 Diabetes Mellitus Type 2 With Diabetic Neuropathy (HCC) #2 Hypertension Essential Primary #3 Hypothyroidism Postsurgical #4 Obesity Body Mass Index 30-39.9 Adult #5 Hyperlipidemia #6 Apnea Sleep Obstructive #7 Chronic Kidney Disease Stage 2 Glomerular Filtration Rate 60 To 89 #8 Nausea And Vomiting #9 Mass Duodenum #10 Vomiting #11 Lymphoma Non Hodgkins (HCC) ASSESSMENT: Mr. Lau seems to be doing much better from a GI symptoms perspective, with no nausea or vomiting. He has not required gastric venting for several days. The tube is currently clamped. RECOMMENDATIONS: Agree with the primary team's plan to advance diet. We have given him some guidelines. Will continue to follow. Please call NSS pager at [phone] at [facility] or [phone] at [facility] with any additional questions. * Isauro Farris M.D. - 05/20/2023 7:48 AM CDT Images from the original note were not included. HEMATOLOGY 3 SERVICE No care food court team member to display Drs. Lim and Mark Mr. Hola Lau is a 72 y.o. male with duodenal mass concerning for B cell lymphoma (pathology pending) admitted on 05/13/2023 (Hospital Day 7) for evaluation and management of inability to tolerate tube feeds. Transferred to [facility] 05/16 for supportive care and consideration of chemotherapy induction. SUBJECTIVE No acute events overnight. This morning, the patient continues to deny any symptoms of nausea or abdominal pain. He overall feels quite well. He and his understandably had some questions regarding the initiation of chemotherapy and what to expect. OBJECTIVE VITAL SIGNS Temperature: [36.2 ??C-36.9 ??C] 36.2 ??C Resp Rate: [16-18] 16 Blood Pressure: (94-123)/(50-63) 102/54 SpO2: [89 %-98 %] 89 % Weight: [81.3 kg] 81.3 kg BMI (Calculated): [26.5 kg/m??] 26.5 kg/m?? Pulse Rate: [53-60] 57 Last BM Date: 05/19/23 PHYSICAL EXAM General: Normal-appearing elderly male, in no acute distress Cardiovascular: Regular rate and rhythm, normal S1, S2, 1/6 systolic murmur consistent with mild-moderate , no appreciable lower extremity edema, extremities warm and well perfused Lungs: Breathing comfortably on room air, anterior lung atkinson clear to auscultation bilaterally Abdomen: Bowel sounds present, no tenderness to palpation, no guarding, no rigidity, NJ tube in place (known to be coiled and stomach), Neuro: grossly intact to observation, responds appropriately to questions and commands, clear speech Psych: Pleasant, cooperative, invested in care Recent Labs 05/20/23 0009 05/19/23 0003 05/18/23 0604 05/17/23 0559 05/16/23 0435 HGB 8.3 L 9.0 L 11.1 L 10.9 L 9.7 L WBC 2.4 L 3.4 3.8 4.6 4.8 PLT 190 215 345 H 219 249 Cystatin C 1.69 (up from 1.18 yesterday). K , Mg, UA stable ASSESSMENT / PLAN Mr. Lau is a 72 year old male hospitalized for inability to tolerate tube feeds in the setting of newly diagnosed duodenal mass, likely B cell lymphoma. His medical comorbidities include thyroid cancer, postsurgical hypothyroidism, T2DM, CKD stage 2, gout, hypertension, and hyperlipidemia. He initially presented on 04/29/23 with abdominal pain, constant dizziness, and vomiting after eating. The patient was hospitalized (04/29/23 - 05/07/23) for nausea/vomiting and abdominal pain found to have duodenal mass highly suspicious for B cell lymphoma (biopsy indeterminate due to crush artifactand degenerative changes). Lymphoid infiltrates stained positive extensively for CD20, PAX5, CD10, BCL6, and BCL2. Ki-67 at least 60%. He was discharged with an NJ tube, but did not tolerate due to nausea and vomiting and weight loss (86.8 kg to 82 kg). He returned to the hospital on 05/13/23. The current admission is in the context of subacute progressive postprandial nausea, vomiting, abdominal pain resulting in significant weight loss (40+ lb) since January 2023. Currently awaiting final duodenal biopsy results however preliminary report consistent with B-cell lymphoma. He has received 4 days of methylprednisolone and has started Rituximab as part of pretreatment while following up final pathology report. His symptoms have begun to improve and he is currently without nausea. We hope to improve his oral intake and we possibly remove his NJ tube rather thanhaving to replace/reposition it. We will trial mechanical soft diet today. His renal function is improving and we will continue to provide maintenance fluids as needed. We will initiate the remainder of Romaine-R-CHP when we become aware of final pathology results. 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 (biopsy results pending), stage IV #Possible microperforation in transverse duodenum (CTAP 05/11/23) #Poor enteral nutrition #Nausea with emesis #Unintentional weight loss #Gastric distension #Concern for refeeding syndrome Plan - S/p Rituximab infusion, 1st dose 05/18 - follow up final biopsy read; initiate lymphoma directed regimen -polatuzamab -cyclophosphamide -doxorubicin -prednisone -Will likely give interrupted regimen over a few days given question of microperforation - 1 g IV methylprednisolone, s/p 4 doses - trial mechanical soft diet, pending tolerance, may be able to remove NJ tube rather than go for repositioning - Nutrition recs: - s/p IV thiamine 100 mg x5 days (last dose 05/17) due to refeeding risk -q6 PRN Zofran and Compazine for nausea -Holding lansoprazole 30 mg, olanzapine 2.5 mg (for nausea and appetite) while NPO - Transfuse to keep hemoglobin > 7 and platelets > 10k. Patient does not require premed priorto RBCs and platelets. # ROMEO on CKD, improving # CKD2 (baseline Cr approx 0.8) Likely prerenal in the setting of poor tube feed intake. Cystatin C improving. - fluid resuscitation as indicated - trend cystatin C given discordance with creatinine # Diabetes Mellitus Type 2 With Neuropathy - Hold home Jardiance and metformin - Moderate CS (goal 140 - 180) # Gout - Holding LICENSED MIDWIFE allopurinol 300 mg daily while NPO # Hypothyroidism Post-Surgical - Continue LICENSED MIDWIFE levothyroxine # Hyperlipidemia - Holding statin (changed to atorvastatin 20mg here), LICENSED MIDWIFE aspirin for ASCVD ppx while NPO Current Activity/Mobility: BMAT Level 4 (Able to stand and walk; needs staff assist if fall risk factors identified) Diet: tube feeds, PO ice chips and water for comfort diet Tubes/lines: PIV and Dobbhoff VTE prophylaxis: heparin Code status: Full Code Disposition: Uncertain with expected discharge date uncertain Stable to discharge criteria (not met): Nutrition/hydration and Tests/procedures/consults Severe Malnutrition The patient meets the ASPEN Criteria of malnutrition based on: Average estimated Intake: Less than or equal to 50% for 5 or more days Weight Loss: >5% in 1 month Body Fat: Moderate Loss Muscle Mass: Severe Loss This is in the context of Acute Illness or Injury. Agree with Registered Dietitian's assessment and treatment plan: Nutrition Interventions Interventions: Enteral nutrition, Vitamin and mineral supplements Plan discussed with Hematology 3 Social Work Instructor, Darian Juan M.B.BJohannaSJohanna, who was present duringthe duncan portions of the evaluation today. [place] [phone] with any questions. Isauro Farris M.D. Internal Medicine, PGY 2 Associated attestation - Darian Tejada M.B.B.S. - 05/20/2023 7:41 PM CDT I saw and evaluated the patient, participating in the duncan portions of the service. I reviewed the resident/fellow???s note. I agree with the resident/fellow???s findings and plan. The patient is clinically stable. He reports no nausea. We will attempt oral feeds today, and if well tolerated, we will consider removal of the NJ tube after discussing with our colleagues in GI. Weawait final pathology results, and once these are available, we will proceed with treatment consisting of polatuzumab vedotin and CHP. * Isauro Farris M.D. - 05/19/2023 7:37 AM CDT Images from the original note were not included. HEMATOLOGY 3 SERVICE No care food court team member to display Drs. Lim and aMrk Mr. Hola Lau is a 72 y.o. male with duodenal mass concerning for B cell lymphoma (pathology pending) admitted on 05/13/2023 (Hospital Day 6) for evaluation and management of inability to tolerate tube feeds. Transferred to [facility] 05/16 for supportive care and consideration of chemotherapy induction. SUBJECTIVE No acute events overnight. This morning, he denies any nausea or abdominal pain. He and his understandably inquired regarding the treatment plan and the expected time that he will be able to eat. He is pleased that he is feeling much better since starting treatment. OBJECTIVE VITAL SIGNS Temperature: [36.2 ??C-36.9 ??C] 36.3 ??C Resp Rate: [17-19] 18 Blood Pressure: (92-123)/(52-70) 123/63 SpO2: [93 %-97 %] 97 % Weight: [81.3 kg] 81.3 kg BMI (Calculated): [26.5 kg/m??] 26.5 kg/m?? Pulse Rate: [54-79] 60 Last BM Date: 05/19/23 PHYSICAL EXAM General: Normal-appearing elderly male, in no acute distress Cardiovascular: Regular rate and rhythm, normal S1, S2, 1/6 systolic murmur consistent with mild-moderate , no appreciable lower extremity edema, extremities warm and well perfused Lungs: Breathing comfortably on room air, clear to auscultation bilaterally Abdomen: Bowel sounds present, no tenderness to palpation, no guarding, no rigidity, Neuro: grossly intact to observation, responds appropriately to questions and commands, clear speech Psych: Pleasant, cooperative, invested in care Recent Labs 05/19/23 0003 05/18/23 0604 05/17/23 0559 05/16/23 0435 05/15/23 0437 HGB 9.0 L 11.1 L 10.9 L 9.7 L 9.9 L WBC 3.4 3.8 4.6 4.8 5.4 PLT 215 345 H 219 249 234 Cystatin C 1.69 (up from 1.18 yesterday). K , Mg, UA stable ASSESSMENT / PLAN Mr. Lau is a 72 year old male hospitalized for inability to tolerate tube feeds in the setting of newly diagnosed duodenal mass, likely B cell lymphoma. His medical comorbidities include thyroid cancer, postsurgical hypothyroidism, T2DM, CKD stage 2, gout, hypertension, and hyperlipidemia. He initially presented on 04/29/23 with abdominal pain, constant dizziness, and vomiting after eating. The patient was hospitalized (04/29/23 - 05/07/23) for nausea/vomiting and abdominal pain found to have duodenal mass highly suspicious for B cell lymphoma (biopsy indeterminate due to crush artifactand degenerative changes). Lymphoid infiltrates stained positive extensively for CD20, PAX5, CD10, BCL6, and BCL2. Ki-67 at least 60%. He was discharged with an NJ tube, but did not tolerate due to nausea and vomiting and weight loss (86.8 kg to 82 kg). He returned to the hospital on 05/13/23. The current admission is in the context of subacute progressive postprandial nausea, vomiting, abdominal pain resulting in significant weight loss (40+ lb) since January 2023. Currently awaiting final duodenal biopsy results however preliminary report consistent with B-cell lymphoma. He has received 3 days of methylprednisolone and has started Rituximab as part of pretreatment while following up final pathology report. His symptoms have begun to improve and he is currently without nausea. We hope to improve his oral intake and we possibly remove his NJ tube rather thanhaving to replace it with GI on Saturday. His renal function appears to be improving and we will continue to provide maintenance fluids as needed. 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 (biopsy results pending), stage IV #Possible microperforation in transverse duodenum (CTAP 05/11/23) #Poor enteral nutrition #Nausea with emesis #Unintentional weight loss #Gastric distension #Concern for refeeding syndrome - NJ tube replaced with Dobbhoff with gastric aspiration port and jejunal extension on 05/14 so both feeding and continued gastric aspiration could be performed. - EGD removed 2L of bilious fluid - duodenal mass workup -BM biopsy with normal immunophenotyping results and no features of lymphoma involvement - CT guided mesenteric lymph node biopsy on 05/14 preliminary results showing suspicion for lymphoma. -EGD with duodenal biopsy 05/14: final biopsy results pending -will discuss final plans pending results - TTE 05/15/23 (LVEF 75%) - PET CT 05/10/23: Duodenal malignancy. Several adjacent nodes show FDG uptake consistent with metastatic disease (portacaval, mesenteric, retroperitoneal, paratracheal, posthilar) reason why news NG tube for meds - CTAP 05/11/23: Possible microperforation of the transverse duodenum involving the duodenal malignancy. Plan - S/p Rituximab infusion, 1st dose 05/18 - follow up final biopsy read; initiate lymphoma directed regimen -polatuzamab -cyclophosphamide -doxorubicin -prednisone -Will likely give interrupted regimen over a few days given question of microperforation - 1 g IV methylprednisolone, s/p 3 doses (05/16, 05/17, 05/18) - GI consulted for tube management as it is now coiled in the stomach and is supposed to have jejunal extension (plan for EGD Saturday) - Nutrition recs: - Holding tube feeds, multivitamin while NPO. -IV thiamine 100 mg x5 days (last dose 05/17) due to refeeding risk -q6 PRN Zofran and Compazine for nausea -Holding lansoprazole 30 mg, olanzapine 2.5 mg (for nausea and appetite) while NPO - Transfuse to keep hemoglobin > 7 and platelets > 10k. Patient does not require premed priorto RBCs and platelets. # ROMEO on CKD, improving # CKD2 (baseline Cr approx 0.8) Likely prerenal in the setting of poor tube feed intake. Cystatin C improving. - fluid resuscitation as indicated - trend cystatin C given discordance with creatinine # Diabetes Mellitus Type 2 With Neuropathy - Hold home Jardiance and metformin - Moderate CS (goal 140 - 180) # Gout - Holding LICENSED MIDWIFE allopurinol 300 mg daily while NPO # Hypothyroidism Post-Surgical - Continue LICENSED MIDWIFE levothyroxine # Hyperlipidemia - Holding statin (changed to atorvastatin 20mg here), LICENSED MIDWIFE aspirin for ASCVD ppx while NPO Current Activity/Mobility: BMAT Level 4 (Able to stand and walk; needs staff assist if fall risk factors identified) Diet: tube feeds, PO ice chips and water for comfort diet Tubes/lines: PIV and Dobbhoff VTE prophylaxis: heparin Code status: Full Code Disposition: Uncertain with expected discharge date uncertain Stable to discharge criteria (not met): Nutrition/hydration and Tests/procedures/consults Severe Malnutrition The patient meets the ASPEN Criteria of malnutrition based on: Average estimated Intake: Less than or equal to 50% for 5 or more days Weight Loss: >5% in 1 month Body Fat: Moderate Loss Muscle Mass: Severe Loss This is in the context of Acute Illness or Injury. Agree with Registered Dietitian's assessment and treatment plan: Nutrition Interventions Interventions: Enteral nutrition, Vitamin and mineral supplements Plan discussed with Hematology 3 Social Work Instructor, Darian Juan M.B.B.S., who was present duringthe duncan portions of the evaluation today. [place]emat[place] 3 [place] [phone] with any questions. Isauro Farris M.D. Internal Medicine, PGY 2 Associated attestation - Darian Tejada M.B.B.S. - 05/19/2023 4:17 PM CDT I saw and evaluated the patient, participating in the duncan portions of the service. I reviewed the resident/fellow???s note. I agree with the resident/fellow???s findings and plan. * Darian Tejada M.B.B.S. - 05/18/2023 2:05 PM CDT Hematology 3 Supervisory Note This is an attestation note. I saw and evaluated the patient, and participated in the duncan portions of the discussion during the Hematology 3 service rounds today. I reviewed the Hematology 3 service resident note and discussed the findings and plan. Hematology History The patient is a 72-year-old male with a history of nausea, vomiting, abdominal discomfort, and weight loss since January 2023. A CT scan of the abdomen showed thickening of the duodenum. He underwent anEGD with a push enteroscopy on April 30 which showed the presence of a large circumferential infiltrative mass which was biopsied, and lead to a possible diagnosis of B-cell lymphoma, although there was significant crush artifact present. The patient then was seen in the lymphoma clinic on May 09. A PET scan showed the presence of a large duodenal mass with a maximum SUV of 19, with several lymph nodes around the duodenum with a max SUV of 22. A CT of the abdomen done on May 11 showed the presence of a duodenal malignancy, along with a possible microperforation of the transverse duodenum. There were also other lesions noted including in the lower esophagus, as well as in the paratracheal node. The patient was hospitalized on the GI service on May 12, 2023 because of worsening abdominal discomfort, and nausea, and inability to tolerate enteral feeding. A repeat endoscopy on May 14 showed the presence of a duodenal mass with partial obstruction, with repeat biopsies demonstrating the presence of B-cell lymphoma. The Ki-67 was estimated about 70%, consistent with a high-grade B-cell lymphoma. Additional investigations including a B-cell lymphoma fish panel are pending. In additional biopsy of a mesenteric lymph node is still pending at this time. The patient received 1000 mg of Solu-Medrol on May 16. He was transferred to the Hematology 3 service for consideration of definitive anti lymphoma therapy. 2D echocardiogram showed a normal ejection fraction. 24-hour events The patient has had stable vital signs, unfortunately the nasogastric tube is coiled, and at this time can not be used. 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 Continue high-dose steroids, and will begin treatment with rituximab today. We will likely proceed with definitive anti lymphoma based therapy consisting of polatuzumab and R-CHP early next week. * Radha Starr, D., R.Ph. - 05/18/2023 1:42 PM CDT Pharmacist Progress Note 72 y.o. male transferred for initiation of chemotherapy. PMH: T2DM, CKD stage 2, gout, hypertension, and hyperlipidemia OBJECTIVE Home medications being held/changed: Held: empagliflozin, ixekizumab, metformin, , colbenemid Changed: simvastatin > atorvastatin VTE prophylaxis: heparin SQ 5000 U TID GI prophylaxis: lansoprazole 30 mg suspension daily ID prophylaxis: pentamidine, will need acyclovir when NJ accessible ASSESSMENT / PLAN Hematology Work-up: 05/09 hepatitis serologies negative 05/14 BMBx: no morphologic or immunophenotypic features of lymphoma 05/14 FNA of mesenteric lymph node: prelim suspicious for malignancy, abnormal lymphoid population 05/15 ECHO LVEF 75% 05/16 COVID negative Management: 05/16: Solumedrol 1 g given Anticipate another day or two of high dose steroids will be given C1D1 Romaine-R-CH = 05/18 Rituximab 05/18; with Romaine-CH on 05/20 No prednisone with C1 d/t ongoing methylpred Pegfilgrastim added to day 4 TLS Monitoring LDH WNL 189, uric acid WNL G6PD pending Continue allopurinol 300 mg daily for prevention Encourage oral intake and consider initiation of continuous fluids if unable to keep up with adequate oral intake; goal UOP of at least 100 mL/hour Nutrition Currently has Dobbhoff and jejunal extension in place as of 05/14 All medications through tube at this time Changes to medications anticipated at discharge: New: TBD Changes: TBD Discontinue: TBD Rx approval pending: none Dispo: TBD Radha Starr Pharm.D., R.Ph., BCOP * Dereje Mcwilliams M.D. - 05/18/2023 7:59 AM CDT Images from the original note were not included. HEMATOLOGY 3 SERVICE No care food court team member to display Drs. Lim and Mark Mr. Hola Lau is a 72 y.o. male with duodenal mass concerning for B cell lymphoma (pathology pending) admitted on 05/13/2023 (Hospital Day 5) for evaluation and management of inability to tolerate tube feeds. Transferred to [facility] 05/16 for supportive care and consideration of chemotherapy induction. SUBJECTIVE No acute events overnight. Patient resting comfortably in bed. No acute concerns. Patient currentlyNPO with NJ tube being coiled OBJECTIVE VITAL SIGNS Temperature: [35.9 ??C-36.7 ??C] 36.1 ??C Resp Rate: [16-18] 16 Blood Pressure: (97-118)/(56-72) 97/58 SpO2: [92 %-98 %] 93 % Pulse Rate: [63-85] 63 Last BM Date: 05/18/23 PHYSICAL EXAM General: no acute distress, Dobbhoff in place Skin: no jaundice, no rashes Lungs: breathing comfortably on room air Heart: regular rate and rhythm, no murmurs noted Neuro: chronic R foot drop Recent Labs 05/18/23 0604 05/17/23 0559 05/16/23 0435 05/15/23 0437 05/14/23 0422 HGB 11.1 L 10.9 L 9.7 L 9.9 L 10.1 L WBC 3.8 4.6 4.8 5.4 5.2 PLT 345 H 219 249 234 270 Cystatin C 1.69 (up from 1.18 yesterday). K , Mg, UA stable ASSESSMENT / PLAN Mr. Lau is a 72 year old male hospitalized for inability to tolerate tube feeds in the setting of newly diagnosed duodenal mass, likely B cell lymphoma. His medical comorbidities include thyroid cancer, postsurgical hypothyroidism, T2DM, CKD stage 2, gout, hypertension, and hyperlipidemia. He initially presented on 04/29/23 with abdominal pain, constant dizziness, and vomiting after eating. The patient was hospitalized (04/29/23 - 05/07/23) for nausea/vomiting and abdominal pain found to have duodenal mass highly suspicious for B cell lymphoma (biopsy indeterminate due to crush artifactand degenerative changes). Lymphoid infiltrates stained positive extensively for CD20, PAX5, CD10, BCL6, and BCL2. Ki-67 at least 60%. He was discharged with an NJ tube, but did not tolerate due to nausea and vomiting and weight loss (86.8 kg to 82 kg). He returned to the hospital on 05/13/23. The current admission is in the context of subacute progressive postprandial nausea, vomiting, abdominal pain resulting in significant weight loss (40+ lb) since January 2023. Currently awaiting final duodenal biopsy results however preliminary report consistent with B-cell lymphoma. He was received 3 days of methylprednisolone and we will start Rituximab for him as part of pretreatment while following up final pathology report. This will hopefully improve his oral intake and we could possibly remove his NJ tube rather than having to replace it with GI on Saturday. 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 (biopsy results pending), stage IV #Possible microperforation in transverse duodenum (CTAP 05/11/23) #Poor enteral nutrition #Nausea with emesis #Unintentional weight loss #Gastric distension #Concern for refeeding syndrome - NJ tube replaced with Dobbhoff with gastric aspiration port and jejunal extension on 05/14 so both feeding and continued gastric aspiration could be performed. - EGD removed 2L of bilious fluid - duodenal mass workup -BM biopsy with normal immunophenotyping results and no features of lymphoma involvement - CT guided mesenteric lymph node biopsy on 05/14 preliminary results showing suspicion for lymphoma. -EGD with duodenal biopsy 05/14: final biopsy results pending -will discuss final plans pending results - TTE 05/15/23 (LVEF 75%) - PET CT 05/10/23: Duodenal malignancy. Several adjacent nodes show FDG uptake consistent with metastatic disease (portacaval, mesenteric, retroperitoneal, paratracheal, posthilar) reason why news NG tube for meds - CTAP 05/11/23: Possible microperforation of the transverse duodenum involving the duodenal malignancy. Plan - Start Rituximab infusion, 1st dose today 05/18 - follow up final biopsy read; initiate lymphoma directed regimen (likely R-CHOP) - Will likely given in interrupted regimen due to concern for microperforation - 1 g IV methylprednisolone, s/p 3 doses (05/16, 05/17, 05/18) - GI consulted for tube management as it is now coiled in the stomach and is supposed to have jejunal extension (plan for EGD Saturday) - Nutrition recs: - Holding tube feeds, multivitamin while NPO. -IV thiamine 100 mg x5 days (day 4) due to refeeding risk - D5/half NS at 75 mL/hr for rehydration in the setting of poor enteral intake while NPO -q6 PRN Zofran and Compazine for nausea -Holding lansoprazole 30 mg, olanzapine 2.5 mg (for nausea and appetite) while NPO - Transfuse to keep hemoglobin > 7 and platelets > 10k. Patient does not require premed priorto RBCs and platelets. # ROMEO on CKD # CKD2 (baseline Cr approx 0.8) Likely prerenal in the setting of poor tube feed intake. Increased from 1.18 to 1.69 on 05/18 - fluid resuscitation as above - trend cystatin C given discordance with creatinine - Repeat UA - If cystatin C continues to rise, consider fluid bolus # Diabetes Mellitus Type 2 With Neuropathy - Hold home Jardiance and metformin - Moderate CS (goal 140 - 180) # Gout - Holding LICENSED MIDWIFE allopurinol 300 mg daily while NPO # Hypothyroidism Post-Surgical - Continue LICENSED MIDWIFE levothyroxine # Hyperlipidemia - Holding statin (changed to atorvastatin 20mg here), LICENSED MIDWIFE aspirin for ASCVD ppx while NPO Current Activity/Mobility: BMAT Level 4 (Able to stand and walk; needs staff assist if fall risk factors identified) Diet: tube feeds, PO ice chips and water for comfort diet Tubes/lines: PIV and Dobbhoff VTE prophylaxis: heparin Code status: Full Code Disposition: Uncertain with expected discharge date uncertain Stable to discharge criteria (not met): Nutrition/hydration and Tests/procedures/consults Severe Malnutrition The patient meets the ASPEN Criteria of malnutrition based on: Average estimated Intake: Less than or equal to 50% for 5 or more days Weight Loss: >5% in 1 month Body Fat: Moderate Loss Muscle Mass: Severe Loss This is in the context of Acute Illness or Injury. Agree with Registered Dietitian's assessment and treatment plan: Nutrition Interventions Interventions: Enteral nutrition, Vitamin and mineral supplements Plan discussed with Hematology 3 Social Work Instructor, Jose Forbes M.D., who was present during the keyportions of the evaluation today. [place]emat[place] [phone] with any questions. * Tee Reynolds M.D. - 05/17/2023 10:41 AM CDT SUBJECTIVE Mr. Lau reported tolerating enteral feeds well. OBJECTIVE VITAL SIGNS Temperature: [35.9 ??C-36.9 ??C] 35.9 ??C Resp Rate: [16-18] 16 Blood Pressure: (107-132)/(58-73) 118/72 SpO2: [94 %-98 %] 98 % Height: [175 cm] 175 cm Weight: [80.9 kg] 80.9 kg BSA (Calculated - sq m): [1.98 sq meters] 1.98 sq meters BMI (Calculated): [26.4 kg/m??] 26.4 kg/m?? Pulse Rate: [79-103] 85 Intake/Output Summary (Last 24 hours) at 05/17/2023 1041 Last data filed at 05/17/2023 1030 Gross per 24 hour Intake 762.5 ml Output 2300 ml Net -1537.5 ml PHYSICAL EXAM Vitals reviewed. Constitutional General: He is not in acute distress. HENT Nose: Comments: Nasal enteric tube noted Abdominal General: There is no distension. Palpations: Abdomen is soft. Musculoskeletal Right lower leg: No edema. Left lower leg: No edema. DIAGNOSTICS Labs: Results from last 7 days Lab Units 05/17/23 0559 05/12/23 0544 05/11/232030 SODIUM P mmol/L -- -- 137 SODIUM mmol/L 138 < > -- CHLORIDE P mmol/L -- -- 99 CHLORIDE mmol/L 102 < > -- CREATININE mg/dL 0.92 < > 1.10 ESTIMATED GFR EGFR mL/min/BSA 87 < > 70 BUN P mg/dL -- -- 20 BUN mg/dL 17 < > -- GLUCOSE P mg/dL -- -- 103 GLUCOSE S mg/dL 156* < > -- CALCIUM P mg/dL -- -- 8.7* CALCIUM mg/dL 8.5* < > -- MAGNESIUM mg/dL 1.8 < > -- PHOSPHORUS INORGANIC mg/dL 4.4 < > -- ALBUMIN g/dL -- -- 3.5 BILIRUBIN TOTAL mg/dL -- -- 0.3 ALK PHOS U/L -- -- 108 ALT U/L -- -- 14 AST U/L -- -- 22 < > = values in this interval not displayed. Radiology: @[email or web address]@ Swallow Assessment: No data to display ASSESSMENT / PLAN #1 Diabetes Mellitus Type 2 With Diabetic Neuropathy (HCC) #2 Hypertension Essential Primary #3 Hypothyroidism Postsurgical #4 Obesity Body Mass Index 30-39.9 Adult #5 Hyperlipidemia #6 Apnea Sleep Obstructive #7 Chronic Kidney Disease Stage 2 Glomerular Filtration Rate 60 To 89 #8 Nausea And Vomiting #9 Mass Duodenum #10 Vomiting Nutrition Needs: Height: 175 cm Admission Weight: 82 kg (05/11/2023) Current Weight: 80.9 kg BMI (Calculated): 26.4 kg/m?? Total Calorie Needs: 3325-3563 calories/day Method to Estimate Energy Needs: kcal/kg ( ) Weight Used for Equation Calculations: 82 kg Total Protein Needs: 98 - 123 grams/day Method to Estimate Protein Needs (g/kg): 1.2 - 1.5 gm/kg Weight Used to Calculate Protein Needs (Kg): 82 kg ASSESSMENT: Mr. Lau is a 72-year-old male with history of CVA, hypertension, hyperlipidemia, history of thyroid cancer status post thyroidectomy, gout, who was noted to have duodenal mass in the setting of progressive postprandial nausea, vomiting, abdominal pain, 40 lb of weight loss since January. Workup reve aled ulcerated mass with biopsy suspicious for B-cell lymphoma. From a nutrition standpoint, he underwent placement of 16 Spanish Dobbhoff NG-J and has been receiving enteral feeds. He reports that with improved focus on venting from his G port, he has been tolerating enteral feeds better. Tube feeds have now been running at 40 mL/hr. Goal is for him to continue and increase those feeds until he is able to provide Peptamen 1.5 at 65 mL/hr times 24 hours providing him with 2340calories and 106 g of protein. On Saturday we will transition him to Nutren 1.5 if he is tolerating goal rate. Will continue to follow. Please call [facility] pager [phone] with any additional questions. BILLING/CODING Total visit time 35 minutes. * She Pond Pharm.D., R.Ph. - 05/17/2023 8:00 AM CDT Pharmacist Progress Note 72 y.o. male transferred for initiation of chemotherapy. PMH: T2DM, CKD stage 2, gout, hypertension, and hyperlipidemia OBJECTIVE Home medications being held/changed: Held: empagliflozin, ixekizumab, metformin, , colbenemid Changed: simvastatin > atorvastatin VTE prophylaxis: heparin SQ 5000 U TID GI prophylaxis: lansoprazole 30 mg suspension daily ASSESSMENT / PLAN Hematology Work-up: 05/09 hepatitis serologies negative 05/14 BMBx: no morphologic or immunophenotypic features of lymphoma 05/14 FNA of mesenteric lymph node: prelim suspicious for malignancy, abnormal lymphoid population 05/15 ECHO LVEF 75% 05/16 COVID negative Management: 05/16: Solumedrol 1 g given Anticipate another day or two of high dose steroids will be given R-CHOP is planned chemotherapy treatment, but awaiting final pathology on FNA TLS Monitoring LDH WNL 189, uric acid WNL No G6PD available - could consider ordering if rasburicase is needed Continue allopurinol 300 mg daily for prevention Encourage oral intake and consider initiation of continuous fluids if unable to keep up with adequate oral intake; goal UOP of at least 100 mL/hour Nutrition Currently has Dobbhoff and jejunal extension in place as of 05/14 All medications through tube at this time Changes to medications anticipated at discharge: New: TBD Changes: TBD Discontinue: TBD Rx approval pending: none Dispo: TBD She Pond, NoemiD, BCOP * Tai Wolf M.D., M.S. - 05/17/2023 7:06 AM CDT Images from the original note were not included. HEMATOLOGY 3 SERVICE No care food court team member to display Drs. Lim and Mark Mr. Hola Lau is a 72 y.o. male with duodenal mass concerning for B cell lymphoma (pathology pending) admitted on 05/13/2023 (Hospital Day 4) for evaluation and management of inability to tolerate tube feeds. Transferred to [facility] 05/16 for supportive care and consideration of chemotherapy induction. SUBJECTIVE Patient resting comfortably in bed. Still notes some difficulty tolerating tube feeds. No fevers, chest pain, shortness breath, or other acute changes in symptoms. Plan discussed with patient and , who was present at bedside. OBJECTIVE VITAL SIGNS Temperature: [36.2 ??C-36.9 ??C] 36.4 ??C Resp Rate: [14-18] 16 Blood Pressure: (107-132)/(58-73) 132/73 SpO2: [94 %-97 %] 97 % Height: [175 cm] 175 cm Weight: [80.9 kg] 80.9 kg BSA (Calculated - sq m): [1.98 sq meters] 1.98 sq meters BMI (Calculated): [26.4 kg/m??] 26.4 kg/m?? Pulse Rate: [79-103] 83 Last BM Date: 05/16/23 PHYSICAL EXAM General: no acute distress, Dobbhoff in place Skin: no jaundice, no rashes Lungs: breathing comfortably on room air Heart: regular rate and rhythm, no murmurs noted Neuro: chronic R foot drop Recent Labs 05/17/23 0559 05/16/23 0435 05/15/23 0437 05/14/23 0422 05/13/23 0541 HGB 10.9 L 9.7 L 9.9 L 10.1 L 9.3 L WBC 4.6 4.8 5.4 5.2 4.7 PLT 219 249 234 270 269 ASSESSMENT / PLAN Mr. Lau is a 72 year old male hospitalized for inability to tolerate tube feeds in the setting of newly diagnosed duodenal mass, likely B cell lymphoma. He initially presented on 04/29/23 with abdominal pain, constant dizziness, and vomiting after eating. The patient was hospitalized (04/29/23 - 05/07/23) for nausea/vomiting and abdominal pain found to have duodenal mass highly suspicious for B cell lymphoma (biopsy indeterminate due to crush artifactand degenerative changes). Lymphoid infiltrates stained positive extensively for CD20, PAX5, CD10, BCL6, and BCL2. Ki-67 at least 60%. He was discharged with an NJ tube, but did not tolerate due to nausea and vomiting and weight loss (86.8 kg to 82 kg). He returned to the hospital on 05/13/23. The current admission is in the context of subacute progressive postprandial nausea, vomiting, abdominal pain resulting in significant weight loss (40+ lb) since January 2023. His medical comorbidities include thyroid cancer, postsurgical hypothyroidism, T2DM, CKD stage 2, gout, hypertension, and hyperlipidemia. 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 (biopsy results pending), stage IV #Possible microperforation in transverse duodenum (CTAP 05/11/23) #Poor enteral nutrition #Nausea with emesis #Unintentional weight loss #Gastric distension #Concern for refeeding syndrome - weight loss likely secondary to poor enteral intake and duodenal mass - NJ tube replaced with Dobbhoff with gastric aspiration port and jejunal extension on 05/14 so both feeding and continued gastric aspiration could be performed. - EGD removed 2L of bilious fluid - duodenal mass workup -BM biopsy with normal immunophenotyping results and no features of lymphoma involvement - CT guided mesenteric lymph node biopsy on 05/14 preliminary results showing suspicion for lymphoma. -EGD with duodenal biopsy 05/14: final biopsy results pending -will discuss final plans pending results - TTE 05/15/23 (LVEF 75%) - PET CT 05/10/23: Duodenal malignancy. Several adjacent nodes show FDG uptake consistent with metastatic disease (portacaval, mesenteric, retroperitoneal, paratracheal, posthilar) - CTAP 05/11/23: Possible microperforation of the transverse duodenum involving the duodenal malignancy. Plan - follow up final biopsy read; initiate lymphoma directed regimen (likely R-CHOP) - Will likely given in interrupted regimen due to concern for microperforation - 1 g IV methylprednisolone, 3 doses (05/16, 05/17, 05/18) - Low intermittent suction via gastric aspiration port BID and as needed for patient comfort - Nutrition recs: - continue tube feeds with Peptamen 1.5 at 30 mL/hr with uptitration by 10 mL/hr every 12 hours with goal of 65 mL/hr. -multivitamin -IV thiamine 100 mg x5 days (day 4) due to refeeding risk -monitor refeeding labs (K, Mg, Phos) daily and replete as needed -patient can have ice chips and water PO for comfort - GI consulted for tube management as it is now coiled in the stomach and is supposed to have jejunal extension - LR at 50 mL/hr for rehydration in the setting of poor enteral intake. -lansoprazole 30 mg -q6 PRN Zofran and Compazine for nausea - olanzapine 2.5 mg for nausea and appetite - Transfuse to keep hemoglobin > 7 and platelets > 10k. Patient does not require premed priorto RBCs and platelets. # ROMEO on CKD, resolving # CKD2 (baseline Cr approx 0.8) - likely prerenal in the setting of poor tube feed intake, less likely secondary to emesis as he does not have electrolyte derangement. - fluid resuscitation with LR 50 mL/hr x 24 hrs - trend cystatin C given discordance with creatinine # Diabetes Mellitus Type 2 With Neuropathy - Hold home Jardiance and metformin - Moderate CS (goal 140 - 180) # Gout - Continue LICENSED MIDWIFE allopurinol 300 mg daily # Hypothyroidism Post-Surgical - Continue LICENSED MIDWIFE levothyroxine # Hyperlipidemia - Continue statin (changed to atorvastatin 20mg here) - Continue LICENSED MIDWIFE aspirin for ASCVD ppx Current Activity/Mobility: BMAT Level 4 (Able to stand and walk; needs staff assist if fall risk factors identified) Diet: tube feeds, PO ice chips and water for comfort diet Tubes/lines: PIV and Dobbhoff VTE prophylaxis: heparin Code status: Full Code Disposition: Uncertain with expected discharge date uncertain Stable to discharge criteria (not met): Nutrition/hydration and Tests/procedures/consults Severe Malnutrition The patient meets the ASPEN Criteria of malnutrition based on: Average estimated Intake: Less than or equal to 50% for 5 or more days Weight Loss: >5% in 1 month Body Fat: Moderate Loss Muscle Mass: Severe Loss This is in the context of Acute Illness or Injury. Agree with Registered Dietitian's assessment and treatment plan: Nutrition Interventions Interventions: Enteral nutrition, Vitamin and mineral supplements Plan discussed with Hematology 3 Social Work Instructor, Jose Forbes M.D., who was present during the keyportions of the evaluation today. [place] 3 [place] [phone] with any questions. Associated attestation - Jose Dalal M.D. - 05/17/2023 5:16 PM CDT I saw and evaluated the patient, participating in the duncan portions of the service. I reviewed the resident/fellow???s note. I agree with the resident/fellow???s findings and plan. He has an aggressive lymphoma involving the duodenal and has evidence of microperforation earlier. Our tentative plan is to continue the high-dose methylprednisolone treatment plus starting rituximabto minimize the risk of further perforation. Afterwards, we can consider giving the rest of the R-CHOP chemotherapy once we can confirm stability. * Isauro Farris M.D. 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 Chart reviewed and patient case discussed on team rounds this morning. The patient was not seen in person. Communication is ongoing with pathology and the primary team. REVIEW OF SYSTEMS As per HPI, otherwise negative. I have reviewed the past medical history, family history, social history, allergies, and medications. 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 Hola Lau is a 72 y.o. male admitted to the gastroenterology service with inability to tolerate PO intake/enteral feeding via NJ tube. Medical comorbidities include history of CVA, hypertension, hyperlipidemia, history of thyroid cancer status post thyroidectomy with resultant hypothyr oidism, gout, remote history of tobacco use. The current admission is in the context of subacute progressive postprandial nausea, vomiting, abdominal pain resulting in significant weight loss (40+ lb) since January 2023. He was ultimately hospitalized in April with these symptoms at which time a duodenal mass was identified. Initial biopsy (04/24/2023) revealed a necrotizing ulcer without evidence of active malignancy. However, repeat EGD withextended push enteroscopy (04/30/2023) identified large circumferential infiltrative and ulcerated mass that was biopsied and found to be suspicious for B-cell lymphoma. Unfortunately, tissue sample was inadequate due to crush artifact and degenerative changes. However, lymphoid infiltrates stain positive extensively for CD20, PAX5, CD10, BCL6, and BCL2. Ki-67 at least 60%. He established care with [facility] on 05/09/[address] Lim and Mark. Plan at that time was for PET scan followed by repeat biopsy of most FDG avid lesion for confirmation of diagnosis. In the meantime, several pretreatment tests were ordered including laboratory, echocardiogram, bone marrow biopsy. At this juncture, although there is no exact tissue diagnosis, his lymphoma is likely aggressive and we would favor initiation of treatment as soon as possible in hopes of avoiding additional complications such as overt bowel perforation (possible mircoperforation noticed on CT imaging). As such, we are pursuing the rest of his pretreatment workup as an inpatient.TTE and bone marrow biopsy have been performed. Regarding tissue diagnosis, repeat endoscopic biopsy and CT guided lymph node biopsies have been performed. Initial pathology review of duodenal biopsy reveals inadequate sampling. Preliminary read of lymph node biopsy is consistent with suspicion for lymphoma, further testing is ongoing to solidify diagnosis but amount of tissue is expected to be adequate and we are hopeful for formal results bythe beginning of next week. Regardless, we have enough information to begin lymphoma directed treatment in the meantime. We recommend starting with 1 g methylprednisolone. More specific lymphoma treatment will be decided upon pending final path (B cell vs T cell, R-CHOP vs CHOP vs other regimen). We have arranged for transfer to hematology 1 service. Prior to this, would recommend COVID swab. Can start above mentioned steroids and obtain daily tumor lysis labs including BMP for K, Ca, Cr, phosphorous, uric acid, plus or minus LDH. RECOMMENDATIONS: Transfer to hematology 1 service 1 g IV methylprednisolone COVID Swab Daily tumor lysis labs BMP (K, Ca, Cr) Phosphorous Uric acid +/- LDH More specific lymphoma directed regimen to follow pending further pathology results Thank you for involving us in the care of this patient. Please contact the Hematology Consult Team with any questions or concerns. Case discussed with Hematology Social Work Instructor Dr. Correa. Isauro Farris M.D. Internal Medicine, PGY 2 * Quiana Marcus, Pharm.D., R.Ph. 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 - Cystatin C 1.15 mg/L, eGFR 60 mL/min/BSA Last BM: 05/14 VTE Prophylaxis: SQ heparin Medication Reconciliation: Med history per [facility] - New: olanzapine - Held: empagliflozin, metformin - Formulary interchange: satin ASSESSMENT / PLAN 1. FEN: Continues on tube feeds, up-titrating rate to goal 65 mL/hr. All meds via SB tube. Multivitamin, IV thiamine x 5 days. Monitor for refeeding, replacing phosphorus. 2. Duodenal lymphoma: Heme following. Repeat biopsy to confirm diagnosis 05/14, results pending. Bonemarrow biopsy pending. Awaiting Heme recs for possible transfer to [facility] [place] initiation. 3. DM2: Holding orals. Inpatient glucose control with sliding scale insulin aspart (not requiring). Devi Marcus Pharm.D., R.Ph. [phone] * Kenia Bhandari M.D. - 05/16/2023 6:21 AM CDT RST Gastroenterology B PROGRESS NOTE SUBJECTIVE Mr. Lau is a 72 year old male admitted to inability to tolerate tube feeding at home due to nausea and vomiting. Interval Events -TTE from yesterday showed EF of 75% with no regional wall motion abnormalities, left atrium severely enlarged -bone marrow biopsy with normal immunophenotyping results as well as no morphologic or immunophenotypic features of involvement by lymphoma -preliminary lymph node biopsy results suspicious for lymphoma -duodenal biopsy pending -this morning, he is tolerating tube feeds at 30 mL/hr without any nausea, vomiting, or abdominal pain. He has not required PRN anti-emetics since yesterday morning. He would like to try uptitrating his feeds -his abdominal pain is much improved with low intermittent suction of the gastric aspiration port I have reviewed the current medication list. OBJECTIVE VITAL SIGNS Temperature: [36.3 ??C-37.5 ??C] 36.8 ??C Heart Rate: [84] 84 Resp Rate: [14-16] 14 Blood Pressure: (114-130)/(50-67) 130/67 SpO2: [92 %-97 %] 95 % Pulse Rate: [78-94] 94 I/O 05/14 Enteric (NG/OG) Tube 120 450 Feedings 199 220 Maintenance IV 2128.8 1758.8 Intermittent Medications 50 Total Intake(mL/kg) 2447.8 (29.9) 2478.8 (30.2) Urine (mL/kg/hr) 0 (0) 1000 (0.5) 300 (0.3) Emesis or Enteric Tube 2865 550 250 Blood 31 Total Output 2896 1550 550 Net -448.3 +928.8 -550 Unmeasured Urine Occurrence 3 x 1 x Unmeasured Emesis Occurrence 2 x PHYSICAL EXAM General: lying comfortably in bed, no acute distress, conversational, Dobbhoff in place Skin: no jaundice, no rashes noted ENT: hearing grossly intact. Dentition intact. No oral or pharyngeal erythema or lesions noted. Moist mucous membranes. PERRL Lungs: clear to auscultation bilaterally, non-labored respirations on room air, no cough noted Heart: regular rate and rhythm, no murmurs noted Abdomen: soft, non-distended, no tenderness to palpation, no guarding or rebound, bowel sounds normoactive Neuro: AOx3, no focal neurologic deficits, able to move all 4 extremities spontaneously, chronic R foot drop MSK: warm and well perfused, peripheral pulses present, no calf tenderness DIAGNOSTICS I have personally reviewed laboratory data, cultures, imaging, and ECGs since admission, with duncan findings discussed below in the assessment and plan. ASSESSMENT / PLAN Mr. 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 His medical comorbidities include thyroid cancer, postsurgical hypothyroidism, T2DM, CKD stage 2, gout, hypertension, and hyperlipidemia. The patient was recently hospitalized for nausea/vomiting and abdominal pain with a newly diagnosedduodenal mass highly suspicious for B cell lymphoma (biopsy indeterminate due to crush artifact anddegenerative changes). He then struggled with nausea and vomiting after NJ tube feeds, leading to insufficient feeding throughout the day. His last documented weight on 05/09 was 86.8 kg and his weight on admission was 82 kg. His labs remain reassuring and do not show electrolyte abnormalities seen in recurrent emesis or signs of refeeding syndrome. His weight loss is likely due to a combination of inability to tolerate tube feeds as well as B cell lymphoma. Per nutrition, switched feeds from Nutren to Peptamen. After undergoing EGD with 2L of bilious fluid removed, the patient has had significant improvement in being able to tolerate his tube feeds and is currently at 30 mL/hr without any nausea, vomiting, or anti- emetics. His NJ tube was replaced with a Dobbhoff with a gastric emptying port and jejunal extension so both feeding and continued gastric aspiration could be performed. His symptoms are much improved with PRN gastric aspiration. For his B cell lymphoma, Hematology consulted to switch outpatient workup to inpatient. He underwent repeat EGD with duodenal biopsy on 05/14 with pathology pending. The patient also underwent bone marrow biopsy with normal immunophenotyping results as well as no morphologic or immunophenotypic features of involvement by lymphoma as well as CT guided mesenteric lymph node biopsy on 05/14 preliminary results showing suspicion for lymphoma. He underwent TTE on 05/15 with EF 75%. Will continue to discuss with Hematology regarding final treatment plan. Patient noted to have ROMEO on admission with creatinine now 1.02 from baseline 0.8. Cystatin C 1.16 and stable. This is likely prerenal in the setting of poor tube feed intake, less likely secondary to emesis as he does not have electrolyte derangement. He has maintenance fluids for rehydration in the setting of ROMEO and poor enteral intake. Today's Plan: -follow up final duodenal biopsy and mesenteric lymph node biopsy results -continue tube feeds per nutrition, currently at 30 mL/hr and uptitrating by 10 mL/hr every 12 hours -low intermittent suction via gastric aspiration port BID and as needed for patient comfort -continue PRN Zofran and Compazine as well as scheduled olanzapine -as patient is having improved enteral intake, will decrease maintenance fluids to 50 mL/hr for rehydration -monitor ROMEO with BMP and cystatin C -discuss with Hematology regarding further treatment plans 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 #Poor enteral nutrition #Nausea with emesis #Unintentional weight loss #Gastric distension #Concern for refeeding 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. NJ tube replaced with Dobbhoff with gastric aspiration port and jejunal extension on 05/14. -low intermittent suction via gastric aspiration port BID and as needed for patient comfort -per nutrition, will continue tube feeds with Peptamen 1.5 at 30 mL/hr with uptitration by 10 mL/hrevery 12 hours with goal of 65 mL/hr. -multivitamin -IV thiamine 100 mg x5 days (day 4) due to refeeding risk -monitor refeeding labs (K, Mg, Phos) twice daily and replete as needed -LR at 50 mL/hr for rehydration in the setting of poor enteral intake. Rate decreased as patient ishaving improved enteral tolerance -patient can have ice chips and water PO for comfort -pain control with Tylenol 500 mg q6 PRN -lansoprazole 30 mg -q6 PRN Zofran and Compazine for nausea -olanzapine 2.5 mg for nausea and appetite -hematology consult for inpatient workup of likely B cell lymphoma -TTE with EF 75% -BM biopsy with normal immunophenotyping results and no features of lymphoma involvement -prelim lymph node biopsy suspicious for lymphoma -f/u final duodenal biopsy results -will discuss final plans pending results # ROMEO on CKD # CKD2 Likely prerenal in the setting of recurrent emesis and poor enteral intake. Patient's baseline creatinine is around 0.8, now 1.102. Cystatin C 1.16. 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 - Continue LICENSED MIDWIFE levothyroxine - Hold antihyperglycemics - Moderate CS # Hypertension Essential Primary # Hyperlipidemia # Apnea Sleep Obstructive - Continue statin (changed to atorvastatin 20mg here) - Continue LICENSED MIDWIFE aspirin Current Activity/Mobility: BMAT Level 4 (Able to stand and walk; needs staff assist if fall risk factors identified) Diet: tube feeds, PO ice chips and water for comfort diet Tubes/lines: PIV and Dobbhoff VTE prophylaxis: heparin Code status: Full Code Disposition: Uncertain with expected discharge date uncertain Stable to discharge criteria (not met): Nutrition/hydration and Tests/procedures/consults Severe Malnutrition The patient meets the ASPEN Criteria of malnutrition based on: Average estimated Intake: Less than or equal to 50% for 5 or more days Weight Loss: >5% in 1 month Body Fat: Moderate Loss Muscle Mass: Severe Loss This is in the context of Acute Illness or Injury. Agree with Registered Dietitian's assessment and treatment plan: Nutrition Interventions Interventions: Enteral nutrition, Vitamin and mineral supplements Plan discussed with [facility] Gastroenterology B Social Work Instructor, Sandra Rosenberg M.D., who was present during the duncan portions of the evaluation today. Please page the [facility] Gastroenterology B service pager at [phone] with any questions. Kenia Bhandari M.D. PGY-1 Internal Medicine 05/16/23 Associated attestation - Sandra Kennedy M.D., M.S. - 05/16/2023 11:50 AM CDT I saw and evaluated the patient, participating in the duncan portions of the service. I reviewed the resident???s note. I agree with the resident???s findings and plan. Briefly, he reports that his nausea and abdominal pain are much better controlled. He is toleratingenteral feeding. Physical examination General: Resting in bed, no acute distress. Enteral tube in place. Chest: Nonlabored breathing on room air. Abdomen: Nondistended. 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 Awaiting tissue biopsy from the duodenal biopsies as well as final results on the lymph node biopsy. 2. Continue to titrate his Peptamen to goal of 65 mL/hour. He and his have questions as to what to do with the Nutren 1.5 that they have at home. We will defer this question to the nutrition team. 3. Encouraged him to be up out of bed as tolerated. * Isauro Farris M.D. 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 Chart reviewed and patient case discussed on team rounds this morning. The patient was not seen in person. Communication is ongoing with pathology and the primary team. REVIEW OF SYSTEMS As per HPI, otherwise negative. I have reviewed the past medical history, family history, social history, allergies, and medications. 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 Hola Lau is a 72 y.o. male admitted to the gastroenterology service with inability to tolerate PO intake/enteral feeding via NJ tube. Medical comorbidities include history of CVA, hypertension, hyperlipidemia, history of thyroid cancer status post thyroidectomy with resultant hypothyr oidism, gout, remote history of tobacco use. The current admission is in the context of subacute progressive postprandial nausea, vomiting, abdominal pain resulting in significant weight loss (40+ lb) since January 2023. He was ultimately hospitalized in April with these symptoms at which time a duodenal mass was identified. Initial biopsy (04/24/2023) revealed a necrotizing ulcer without evidence of active malignancy. However, repeat EGD withextended push enteroscopy (04/30/2023) identified large circumferential infiltrative and ulcerated mass that was biopsied and found to be suspicious for B-cell lymphoma. Unfortunately, tissue sample was inadequate due to crush artifact and degenerative changes. However, lymphoid infiltrates stain positive extensively for CD20, PAX5, CD10, BCL6, and BCL2. Ki-67 at least 60%. He established care with [facility] on 05/09/[address] Lim and Mark. Plan at that time was for PET scan followed by repeat biopsy of most FDG avid lesion for confirmation of diagnosis. In the meantime, several pretreatment tests were ordered including laboratory, echocardiogram, bone marrow biopsy. At this juncture, although there is no exact tissue diagnosis, his lymphoma is likely aggressive and we would favor initiation of treatment as soon as possible in hopes of avoiding additional complications such as overt bowel perforation (possible mircoperforation noticed on CT imaging). As such, we are pursuing the rest of his pretreatment workup as an inpatient.TTE and bone marrow biopsy have been performed. Regarding tissue diagnosis, repeat endoscopic biopsy and CT guided lymph node biopsies have been performed. Initial pathology review of duodenal biopsy reveals inadequate sampling. Preliminary read of lymph node biopsy is consistent with suspicion for lymphoma, further testing is ongoing to solidify diagnosis. Pending the above workup, we will likely pursue initiation of chemotherapy, likely R-CHOP (final regimen to be decided after further discussion) as an inpatient. This will require transfer to a hematology service when the time comes. We discussed this with the patient and his , who are both amenable. RECOMMENDATIONS: We will follow biopsy results and are in contact with pathology Plan for initiation of chemotherapy while inpatient, final regimen to be decided based on above workup (likely R-CHOP) We will continue to follow Thank you for involving us in the care of this patient. Please contact the Hematology Consult Team with any questions or concerns. Case discussed with Hematology Social Work Instructor Dr. Correa. Isauro Farris M.D. Internal Medicine, PGY 2 * Collette Diamond, RDN, LD - 05/15/2023 12:56 PM CDT Nutrition Support Service Patient evaluated by Nutrition Support Service with Dr. Yanira Montoya Nutrition Support Service consulted for complex nutrition management. SUBJECTIVE Mr. Lau is a 72 y.o. male admitted for Mass Duodenum. PMHx includes: thyroid cancer, postsurgical hypothyroidism, T2DM, CKD stage 2, gout, hypertension, and hyperlipidemia, duodenal mass Current Nutrition (since admission): On admission , the patient has not tolerated EN and has had tocontinuously decrease the TF rate. Has had nausea and emesis with tube feeding. Partner says that rate had to be decreased to 10 mL/hr, only getting 200 mL formula. Patient has been having 1 BM a dayand it is loose. Ongoing N/V, weight loss. Formula changed to peptamen 1.5 on 05/12 but patient continued to struggle with N/V and declined feeds at times due to his significant symptoms. Yesterday EGDwith Dobbhoff dual lumen placed and NG port had 2.8 L out and 550 so far today. Tube feeds of Peptamen 1.5 are currently at 20 mL and the patient reports tolerating this morning after they vented histube again. Plan to continue to advance tube feeds, if he is tolerating well at goal we can re-try Nutren 1.5 and he has many case of this at home given that his symptoms appear related to his obstruction not a formula intolerance. Scheduled Meds:allopurinoL, 300 mg, small bowel tube, Daily aspirin, 81 mg, small bowel tube, Daily atorvastatin, 20 mg, small bowel tube, Daily at bedtime [Held by provider] empagliflozin, 10 mg, small bowel tube, Daily before breakfast heparin (porcine), 5,000 Units, subcutaneous, Q8H SUBHASH insulin aspart, 0-13 Units, subcutaneous, TID lansoprazole, 30 mg, small bowel tube, Daily before breakfast levothyroxine, 112 mcg, small bowel tube, Once per day on Satu levothyroxine, 224 mcg, small bowel tube, Once per day on Sat Sat lidocaine (PF), 20 mL, infiltration, Once multivitamin/mineral-, 1 tablet, small bowel tube, Daily OLANZapine, 2.5 mg, small bowel tube, Daily at bedtime sennosides-docusate sodium, 1 tablet, small bowel tube, BID thiamine, 100 mg, intravenous, Daily Continuous Infusions:Lactated Ringer's, 50 mL/hr Lactated Ringer's, 75 mL/hr, Last Rate: 75 mL/hr (05/15/23 1200) Pertinent Labs: Last 3 results Lab Units 05/15/23 0437 05/14/23 1736 05/14/23 0422 SODIUM mmol/L 139 139 138 POTASSIUM mmol/L 4.8 5.1 4.4 CHLORIDE mmol/L 103 100 100 BUN mg/dL 17 17 17 CREATININE mg/dL 1.16 1.08 1.14 PHOSPHORUS INORGANIC mg/dL 3.2 3.5 3.0 CALCIUM mg/dL 8.2* 8.4* 8.3* MAGNESIUM mg/dL 1.7 1.8 2.0 OBJECTIVE Current nutrition orders: Current Diet Tube feeding with oral diet -Peptamen 1.5 (RTH); Feeding route: Nasojejunal; Feed options: Continuous; Starting rate (ml/hr): 10 mL/hr; Rate advancement (ml/hrs): 10 mL/hr every 12 hours; Continuous goal rate (ml/hr): 65 mL/hr; Daily goal volume (... starting at 05/13 1502 No oral nutrition, tube feeding allowed except: Ice chips, Sips of clear liquids starting at 05/13 1333 Nutrition Focused Physical Assessment and Malnutrition Assessment Average estimated Intake: Less than or equal to 50% for 5 or more days Weight Loss: >5% in 1 month Body Fat: Moderate Loss Muscle Mass: Severe Loss Nutritional Status: Severe Malnutrition Malnutrition in the Context of: Acute Illness or Injury ANTHROPOMETRICS: Height: 175 cm Admission Weight: 82 kg (05/11/2023) Current Weight: 82 kg Reyno Body Weight (Calculated) : 70.2 kg BMI (Calculated): 26.8 kg/m?? Weight change since admission: 0 kg Weight Change History: Weight loss, 4.5 kg, 5.2% in 1 month, 13.1 kg, 13.8% in less than 6 months ESTIMATED NEEDS: Total Calorie Needs: 9675-3379 calories/day Method to Estimate Energy Needs: kcal/kg (25-30 kcal/kg) Weight Used for Equation Calculations: 82 kg Total Protein Needs: 98 - 123 grams/day Method to Estimate Protein Needs (g/kg): 1.2 - 1.5 gm/kg Weight Used to Calculate Protein Needs (Kg): 82 kg NUTRITION DIAGNOSIS: Inadequate oral intake related to current illness as evidenced by need for nutrition support Nutrition Diagnosis Reassessment: Ongoing NUTRITION PLAN/MONITORING/EVALUATION: Interventions: Enteral nutrition, Vitamin and mineral supplements Monitoring: Diet Progression/NPO Status, Enteral, Skin Integrity, Pertinent Labs, Comparative Standards, Weight Status, Nausea/Vomiting/Diarrhea ASSESSMENT / PLAN Patient meets ASPEN/AND criteria for Severe Malnutrition (05/12/2023 3:23 PM) RECOMMENDATIONS: Please order NGT to be vented PRN for symptoms in addition to the current BID orders. Continue to advance feeds to goal of 65 mL/hr continuous as tolerated of Peptamen 1.5. Tube feeding of Peptamen 1.5 at goal rate of 65 mL/hr over 24 hours will provide 1560 mL total volume, 2340 kcal, 106 grams protein, 293 grams carbohydrate, 1201 mL free water, and 156 % RDIs daily. Continue to replace gastric losses as indicated with IV fluids. Once tube feeds are at goal and tolerating, we can consider enteral fluid/electrolyte management strategies to account for gastric losses in preparation for home. Nutrition Support Service ([facility]) will continue to follow. Page [phone] with questions. * Sandra Kennedy M.D., M.S. - 05/15/2023 10:06 AM CDT Inpatient Progress Note Date: 05/15/2023 SUBJECTIVE This is a supervisory note for Dr. Bhandari. I have reviewed the available records, interviewed and examined the patient. I agree with the history, physical examination, and plan as outlined in Dr. Bhandari's note from today. HISTORY OF PRESENT ILLNESS He reports that he is doing much better from a nausea standpoint and tolerating enteral feeding. Heis willing to continue to go up on his tube feeding. He does not feel that he needs antiemetics at this time on a scheduled basis. OBJECTIVE VITAL SIGNS Temperature: [36.4 ??C-36.7 ??C] 36.5 ??C Heart Rate: [73-85] 78 Resp Rate: [0-24] 16 Blood Pressure: (101-144)/(52-80) 115/56 SpO2: [81 %-100 %] 96 % Flow Rate (L/min): [3 L/min] 3 L/min Pulse Rate: [72-97] 77 PHYSICAL EXAMINATION General: Resting in bed, no acute distress. Enteral tube in place. Chest: Nonlabored breathing on 3 L nasal cannula. Abdomen: Soft. 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 Continue with gastric decompression on an as-needed basis for symptoms of nausea and vomiting. 2. Continue to titrate his enteral feeding to goal 10 cc every 12 hours. 3. Awaiting the results of biopsies from his bone marrow, duodenum, and lymph node. 4. TTE scheduled for today. * Kenia Bhandari M.D. - 05/15/2023 6:44 AM CDT [facility] Gastroenterology B PROGRESS NOTE SUBJECTIVE Mr. Lau is a 72 year old male admitted to inability to tolerate tube feeding at home due to nausea and vomiting. Interval Events -the patient underwent EGD with duodenal biopsy yesterday as well as having his NJ tube replaced with a Dobbhoff with gastric aspiration port and jejunal extension. This replacement tube was leaking so it was subsequently replaced. Results of biopsy pending -he also underwent bone marrow biopsy and CT guided mesenteric lymph node biopsy with results pending -he restarted tube feeds after his procedures and was able to have improved tolerance up to 20 mL/hr without any nausea or vomiting. During the first EGD, he had 2 L of bilious fluid removed and the patient states that this significantly improved his nausea and vomiting -he requests that his scheduled Zofran and Compazine be changed to PRN as he feels significant improvement in his symptoms -creatinine stable I have reviewed the current medication list. OBJECTIVE VITAL SIGNS Temperature: [36.4 ??C-36.7 ??C] 36.5 ??C Heart Rate: [73-85] 78 Resp Rate: [0-24] 16 Blood Pressure: (101-127)/(52-80) 115/56 SpO2: [81 %-100 %] 96 % Flow Rate (L/min): [3 L/min] 3 L/min Pulse Rate: [72-97] 77 I/O 05/13 235 Enteric (NG/OG) Tube 120 120 360 Feedings 147 199 20 Maintenance IV 960 2128.8 1151.3 Total Intake(mL/kg) 1227 (15) 2447.8 (29.9) 1531.3 (18.7) Urine (mL/kg/hr) 0 (0) 300 (0.3) Emesis or Enteric Tube 2865 300 Blood 31 Total Output 2896 600 Net +1227 -448.3 +931.3 Unmeasured Urine Occurrence 1 x 3 x Unmeasured Emesis Occurrence 2 x 2 x PHYSICAL EXAM General: lying comfortably in bed, no acute distress, conversational, Dobbhoff in place Skin: no jaundice, no rashes noted ENT: hearing grossly intact. Dentition intact. No oral or pharyngeal erythema or lesions noted. Drymucous membranes. PERRL Lungs: clear to auscultation bilaterally, non-labored respirations on room air, no cough noted Heart: regular rate and rhythm, no murmurs noted Abdomen: soft, non-distended, diffuse tenderness to palpation with deep palpation, no guarding or rebound, bowel sounds present Neuro: AOx3, no focal neurologic deficits, able to move all 4 extremities spontaneously, chronic R foot drop MSK: warm and well perfused, peripheral pulses present, no calf tenderness DIAGNOSTICS I have personally reviewed laboratory data, cultures, imaging, and ECGs since admission, with duncan findings discussed below in the assessment and plan. ASSESSMENT / PLAN Mr. 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 His medical comorbidities include thyroid cancer, postsurgical hypothyroidism, T2DM, CKD stage 2, gout, hypertension, and hyperlipidemia. The patient was recently hospitalized for nausea/vomiting and abdominal pain with a newly diagnosedduodenal mass highly suspicious for B cell lymphoma (biopsy indeterminate due to crush artifact anddegenerative changes). He has since struggled with nausea and emesis after tube feeds, leading to insufficient feeding throughout the day. His last documented weight on 05/09 was 86.8 kg and his weight on admission was 82 kg. In the ED, CT showed proper placement of NJ tube without any gross lab abnormalities. His labs remain reassuring and do not show electrolyte abnormalities seen in recurrent emesis or signs of refeeding syndrome. His weight loss is likely due to a combination of inability totolerate tube feeds as well as B cell lymphoma. Per nutrition, switched feeds from Nutren to Peptamen. After undergoing EGD with 2L of bilious fluid removed, the patient has had significant improvement in being able to tolerate his tube feeds and is currently at 20 mL/hr without any nausea or vomiting. For his B cell lymphoma, hematology consulted to switch outpatient workup to inpatient. He underwent repeat EGD with duodenal biopsy on 05/14 with pathology pending. At this time, his NJ tube was also replaced with a Dobbhoff so jejunal feeding and gastric aspiration could be combined in a single tube. The patient also underwent bone marrow biopsy as well as CT guided mesenteric lymph node biopsy on 05/14 with results pending. The patient is scheduled to have a TTE today to evaluate his EF. Will discuss with Hematology regarding further treatment plans. Patient noted to have ROMEO on admission with creatinine now 1.16 from baseline 0.8. Cystatin C 1.20 and stable. This is likely prerenal in the setting of poor tube feed intake, less likely secondary to emesis as he does not have electrolyte derangement. He has maintenance fluids for rehydration in the setting of ROMEO and poor enteral intake. Today's Plan: -follow up duodenal biopsy, bone marrow biopsy, and mesenteric lymph node biopsy -continue tube feeds per nutrition, currently at 20 mL/hr and uptitrating by 10 mL/hr every 12 hours. Nutritional Support Services on consult, appreciate recs -low intermittent suction via gastric aspiration port BID for patient comfort (approx. 7 AM, 7 PM). -TTE scheduled for later today -switch scheduled Zofran and Compazine to PRN, continue olanzapine -continue LR at 75 mL/hr for rehydration in the setting of poor enteral intake -monitor ROMEO with BMP and cystatin C -discuss with Hematology regarding further treatment plans 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 #Poor enteral nutrition #Nausea with emesis #Unintentional weight loss #Gastric distension #Concern for refeeding 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. NJ tube replaced with Dobbhoff with gastric aspiration port and jejunal extension on 05/14. -low intermittent suction via gastric aspiration port BID for patient comfort (approx. 7 AM, 7 PM).Can adjust based on patient preference -per nutrition, will continue tube feeds with Peptamen 1.5 at 20 mL/hr with uptitration by 10 mL/hrevery 12 hours with goal of 65 mL/hr. -multivitamin -IV thiamine 100 mg x5 days (day 3) due to refeeding risk -monitor refeeding labs (K, Mg, Phos) twice daily and replete as needed -Nutritional support services on consult, appreciate recs -LR at 75 mL/hr for rehydration in the setting of poor enteral intake -patient can have ice chips and water PO for comfort -pain control with Tylenol 500 mg q6 PRN -lansoprazole 30 mg -q6 PRN Zofran and Compazine for nausea -olanzapine 2.5 mg for nausea and appetite -hematology consult for inpatient workup of likely B cell lymphoma -TTE scheduled for today -pending bone marrow biopsy, mesenteric lymph node biopsy, and duodenal biopsy results -will discuss final plans pending results # ROMEO on CKD # CKD2 Likely prerenal in the setting of recurrent emesis and poor enteral intake. Patient's baseline creatinine is around 0.8, now 1.16 on admission. Cystatin C 1.20. Stable -fluid resuscitation with LR 75 mL/hr x 24 hrs - BID BMP - Continue LICENSED MIDWIFE allopurinol # Diabetes Mellitus Type 2 With Neuropathy # Hypothyroidism Post-Surgical - Continue LICENSED MIDWIFE levothyroxine - Hold antihyperglycemics - Moderate CS # Hypertension Essential Primary # Hyperlipidemia # Apnea Sleep Obstructive - Continue statin (changed to atorvastatin 20mg here) - Continue LICENSED MIDWIFE aspirin Current Activity/Mobility: BMAT Level 4 (Able to stand and walk; needs staff assist if fall risk factors identified) Diet: tube feeds, PO ice chips and water for comfort diet Tubes/lines: PIV and Dobbhoff VTE prophylaxis: heparin Code status: Full Code Disposition: Uncertain with expected discharge date uncertain Stable to discharge criteria (not met): Nutrition/hydration, Tests/procedures/consults, and Acute care monitoring needs Severe Malnutrition The patient meets the ASPEN Criteria of malnutrition based on: Average estimated Intake: Less than or equal to 50% for 5 or more days Weight Loss: >5% in 1 month Body Fat: Moderate Loss Muscle Mass: Severe Loss This is in the context of Acute Illness or Injury. Agree with Registered Dietitian's assessment and treatment plan: Nutrition Interventions Interventions: Enteral nutrition, Vitamin and mineral supplements Plan discussed with [facility] Gastroenterology B Social Work Instructor, Sandra Rosenberg M.D., who was present during the duncan portions of the evaluation today. Please page the [facility] Gastroenterology B service pager at [phone] with any questions. Kneia Bhandari M.D. PGY-1 Internal Medicine 05/15/23 * Quiana Marcus Pharm.D., R.Ph. 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 Last BM: 05/14 VTE Prophylaxis: SQ heparin Medication Reconciliation: Med history per [facility] - New: olanzapine - Held: empagliflozin, metformin, simvastatin ASSESSMENT / PLAN 1. FEN: Continues on tube feeds. All meds via SB tube. Multivitamin, IV thiamine x 5 days. 2. Duodenal lymphoma: Heme following. Repeat biopsy to confirm diagnosis 05/14. TTE pending in anticipation of starting inpatient chemotherapy (transfer to [facility] [place] 3. DM2: Holding orals. Inpatient glucose control with sliding scale insulin aspart (not requiring). Devi Marcus Pharm.D., R.Ph. [phone] * Sandra Kennedy M.D., M.S. - 05/14/2023 10:29 AM CDT Inpatient Progress Note Date: 05/14/2023 SUBJECTIVE This is a supervisory note for Dr. Bhandari. I have reviewed the available records, interviewed and examined the patient. I agree with the history, physical examination, and plan as outlined in Dr. Bhandari's note from today. HISTORY OF PRESENT ILLNESS He reported no new concerns today. He still is reporting difficulty tolerating enteral feeding. Endoscopist did called to say that he had quite a bit of fluid buildup in his stomach and was going to be placing a different tube that would help suctioned the fluid from his stomach in addition to having a feeding port. OBJECTIVE VITAL SIGNS Temperature: [36.2 ??C-36.6 ??C] 36.6 ??C Heart Rate: [79-89] 79 Resp Rate: [14-21] 15 Blood Pressure: (98-145)/(61-85) 130/61 SpO2: [92 %-99 %] 97 % Pulse Rate: [79-90] 79 PHYSICAL EXAMINATION General: Drowsy from just having upper endoscopy. Chest: Nonlabored breathing on room air. Abdomen: Nondistended. 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 Biopsies from the duodenal mass were obtained today with upper endoscopy. Hematology would also like to pursue additional biopsy through IR Radiology to ensure that we have adequate tissue. 2. Echocardiogram scheduled for today. 3. Bone marrow biopsy as per Hematology. 4. We will restart feedings when safe to do so through his nasal jejunal tube. 5. Encourage activity as tolerated. * Kenia Bhandari M.D. - 05/14/2023 5:56 AM CDT T Gastroenterology B PROGRESS NOTE SUBJECTIVE Mr. Lau is a 72 year old male admitted to inability to tolerate tube feeding at home due to nausea and vomiting. Interval Events -NAEON -ECG to evaluate for QTc in the setting of QTc prolonging medications was 427 today -yesterday, he trialed tube feeds at 20 mL/hr but was then unable to tolerate this and went back down to 10 mL/hr. Due to significant nausea despite Zofran and Compazine as well as 2 episodes of emesis, he was also no longer able to tolerate 10 mL/hr and his tube feeds were discontinued overnight -this morning, the patient underwent repeat EGD with duodenal biopsy as well as bone marrow biopsy per hematology. Will also undergo TTE and possible CT guided biopsy today per hematology I have reviewed the current medication list. OBJECTIVE VITAL SIGNS Temperature: [36.2 ??C-36.6 ??C] 36.6 ??C Resp Rate: [16] 16 Blood Pressure: (117-126)/(62-71) 126/62 SpO2: [92 %-93 %] 93 % Pulse Rate: [83-86] 83 I/O 05/12 2359 Enteric (NG/OG) Tube 120 120 30 Feedings 147 199 Maintenance IV 656.3 960 Total Intake(mL/kg) 776.3 (9.5) 1227 (15) 229 (2.8) Net +776.3 +1227 +229 Unmeasured Urine Occurrence 3 x 1 x 1 x Unmeasured Stool Occurrence 1 x Unmeasured Emesis Occurrence 2 x 1 x PHYSICAL EXAM No exam completed as the patient was away at procedures, please see note from reservoir engineering consultant, Dr. Kennedy, for exam. Will reassess the patient when available. 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 ASSESSMENT / PLAN Mr. 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 His medical comorbidities include thyroid cancer, postsurgical hypothyroidism, T2DM, CKD stage 2, gout, hypertension, and hyperlipidemia. The patient was recently hospitalized for nausea/vomiting and abdominal pain with a newly diagnosedduodenal mass highly suspicious for B cell lymphoma (biopsy indeterminate due to crush artifact anddegenerative changes). He has since struggled with nausea and emesis after tube feeds, leading to insufficient feeding throughout the day. His last documented weight on 05/09 was 86.8 kg and his weight on admission was 82 kg. In the ED, CT showed proper placement of NJ tube without any gross lab abnormalities. His labs remain reassuring and do not show electrolyte abnormalities seen in recurrent emesis or signs of refeeding syndrome. His weight loss is likely due to a combination of inability totolerate tube feeds as well as B cell lymphoma. Per nutrition, switched feeds from Nutren to Peptamen, but the patient has not been able to tolerate tube feeds consistently during admission (only trialed up to 20 mL/hr with emesis noted). For his B cell lymphoma, hematology consulted to switch outpatient workup to inpatient. He underwent repeat EGD with duodenal biopsy on 05/14 with pathology pending. At this time, his NJ tube was also replaced with a Dobbhoff so jejunal feeding and gastric aspiration could be combined in a single tube. Hematology also recommends CT guided biopsy as there were concerns from the outpatient team that the repeat duodenal biopsy from the EGD would still be indeterminate. As long as pathology does not return with definite pathology, will attempt to have CT guided biopsy done either today or tomorrow.Also plan to have TTE to evaluate EF done tomorrow. Patient noted to have ROMEO on admission with creatinine now 1.14 from baseline 0.8. Cystatin C 1.17 and improving. This is likely prerenal in the setting of poor tube feed intake, less likely secondary to emesis as he does not have electrolyte derangement. He has maintenance fluids for rehydration in the setting of ROMEO and poor enteral intake. Today's Plan: -EGD with duodenal biopsy performed today, pending pathology -NJ tube replaced with a Dobbhoff so jejunal feeding and gastric aspiration could be combined in a single tube -new Dobbhoff tube has a hole so it will be replaced today -likely CT guided biopsy today or tomorrow -TTE likely tomorrow -continue to advance tube feeds as tolerated, goal 65. Monitoring for refeeding BID and thiamine repletion -continue Zofran, Compazine, and olanzapine for nausea -continue LR at 75 mL/hr for rehydration in the setting of poor enteral intake -monitor ROMEO with BMP and cystatin C 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 -NJ tube replaced with a Dobbhoff for jejunal feeding and gastric aspiration however new tube has ahole so it will be replaced later today -per nutrition, will continue tube feeds with Peptamen 1.5 at 10 mL/hr with uptitration by 10 mL/hrevery 12 hours with goal of 65 mL/hr. Will restart diet after procedures if tolerated by patient -multivitamin -IV thiamine 100 mg x5 days (day 2) due to refeeding risk -monitor refeeding labs (K, Mg, Phos) twice daily and replete as needed -LR at 75 mL/hr for rehydration in the setting of poor enteral intake -patient can have ice chips and water PO for comfort. Will restart diet after procedures -pain control with Tylenol 500 mg q6 PRN -lansoprazole 30 mg -q6 scheduled Zofran and Compazine for nausea, QTc 427 today -olanzapine 2.5 mg for nausea and appetite -hematology consult for inpatient workup of likely B cell lymphoma -TTE likely tomorrow -bone marrow biopsy performed today, pending results -EGD with duodenal biopsy performed earlier today, pending pathology. Normal esophagus, normal stomach with 2 L of bilious fluid aspirated, large number of biopsies taken, partial gastric outlet obstruction, new Dobbhoff feeding/gastric aspiration tube placed -given concern that repeat biopsy will remain indeterminate, CT guided biopsy today or tomorrow # ROMEO on CKD # CKD2 Likely prerenal in the setting of recurrent emesis and poor enteral intake. Patient's baseline creatinine is around 0.8, now 1.14 on admission. Cystatin C 1.17. -fluid resuscitation with LR 75 mL/hr x 24 hrs - Daily BMP - Continue LICENSED MIDWIFE allopurinol # Diabetes Mellitus Type 2 With Neuropathy # Hypothyroidism Post-Surgical - Continue LICENSED MIDWIFE levothyroxine - Hold antihyperglycemics - Moderate CS # Hypertension Essential Primary # Hyperlipidemia # Apnea Sleep Obstructive - Continue statin (changed to atorvastatin 20mg here) - Continue LICENSED MIDWIFE aspirin Current Activity/Mobility: BMAT Level 4 (Able to stand and walk; needs staff assist if fall risk factors identified) Diet: tube feeds, PO ice chips and water for comfort diet Tubes/lines: PIV and Dobbhoff VTE prophylaxis: heparin Code status: Full Code Disposition: Home with expected discharge date uncertain Stable to discharge criteria (not met): Nutrition/hydration, Tests/procedures/consults, and Acute care monitoring needs Severe Malnutrition The patient meets the ASPEN Criteria of malnutrition based on: Average estimated Intake: Less than or equal to 50% for 5 or more days Weight Loss: >5% in 1 month Body Fat: Moderate Loss Muscle Mass: Severe Loss This is in the context of Acute Illness or Injury. Agree with Registered Dietitian's assessment and treatment plan: Nutrition Interventions Interventions: Enteral nutrition, Vitamin and mineral supplements Plan discussed with [facility] Gastroenterology B Social Work Instructor, Sandra Rosenberg M.D., who was present during the duncan portions of the evaluation today. Please page the [facility] Gastroenterology B service pager at [phone] with any questions. Kenia Bhandari M.D. PGY-1 Internal Medicine 05/14/23 * Sandra Kennedy M.D., M.S. - 05/13/2023 10:13 AM CDT Inpatient Progress Note Date: 05/13/2023 SUBJECTIVE This is a supervisory note for Dr. Bhandari. I have reviewed the available records, interviewed and examined the patient. I agree with the history, physical examination, and plan as outlined in Dr. Bhandari's note from today. HISTORY OF PRESENT ILLNESS He is tolerating Peptamen but only at a low dose. He states that he does have some phlegm that thenleads him to cough up or have a little spit up. OBJECTIVE VITAL SIGNS Temperature: [36.6 ??C-36.8 ??C] 36.7 ??C Resp Rate: [16] 16 Blood Pressure: (106-117)/(57-61) 117/60 SpO2: [93 %-98 %] 93 % Pulse Rate: [75-82] 75 PHYSICAL EXAMINATION General: Resting in bed, no acute distress. Enteral feeding tube in place. Abdomen: Soft, nondistended. 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 Agree with Registered Dietitian's assessment and treatment plan: Nutrition Interventions Interventions: Enteral nutrition, Vitamin and mineral supplements 2. We will continue to up titrate his enteral feeding. 3. Plan for echocardiogram tomorrow. This had been scheduled in the outpatient setting but we will completed in the inpatient setting as he will likely be here for a few days. 4. We will consult Hematology to see if he should have his bone marrow biopsy as an inpatient. * Kelton Moran, PharmJohannaD., R.Ph. - 05/13/2023 7:42 AM CDT Images from the original note were not included. 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 NEPH: Scr increased to 1.15 from baseline of 0.8, CysC 1.27/54ml/min, medications reviewed and appropriately dosed as this time. GI: Tube feeding intolerance prior to admission. TF resumed along with multivitamin and thiamine due to refeeding risk. Changes to medications anticipated at discharge:TBD Kelton Ash, Pharm.D., R.Ph. Admission Medication History Note Adherence issues: No concerns Medication list source: Care Everywhere or chart review and Pharmacy or dispense records Prior to Admission Medications Med List Status: Pharmacy Complete Set By: Kelton Moran PharmBeny, R.Ph. at 05/12/2023 8:10 AM Taking? Last Dose Informant Start Date End Date LT acetaminophen (TYLENOL) 500 mg tablet 05/11/2023 at 0930 -- 05/07/23 -- Administer 1 tablet (500 mg total) via small bowel tube every 6 (six) hours as needed for mild painor score 1-3 of 10 or moderate pain or score 4-6 of 10. allopurinoL (ZYLOPRIM) 300 mg tablet 05/10/2023 -- 05/07/23 -- Administer 1 tablet (300 mg total) via small bowel tube daily. amitriptyline (ELAVIL) 25 mg tablet -- -- 05/07/23 06/06/23 Administer 0.5 tablets (12.5 mg total) via small bowel tube at bedtime as needed (neuropathy). aspirin 81 mg chewable tablet 05/11/2023 -- 05/07/23 -- Administer 1 tablet (81 mg total) via small bowel tube daily. empagliflozin (Jardiance) 10 mg tablet 05/11/2023 -- 05/07/23 05/06/24 Administer 1 tablet (10 mg total) via small bowel tube every morning before breakfast. ixekizumab (TALTZ) 80 mg/mL syringe injection -- -- 07/24/17 -- Inject 80 mg under the skin every 28 (twenty-eight) days. One injection per month lansoprazole (PREVACID) 3 mg/mL suspension -- -- 05/08/23 -- Administer 10 mL (30 mg total) via small bowel tube every morning before breakfast. Notes: Have not started yet (recorded 05/11/2023) levothyroxine (SYNTHROID, LEVOTHROID) 112 mcg tablet 05/11/2023 -- 05/07/23 -- Administer 1 tablet (112 mcg total) via small bowel tube every morning before breakfast. TAKE 2 TABLETS(224 MCG) BY MOUTH DAILY. EXCEPT ON SUNDAYS, TUESDAYS, AND THURSDAYS TAKE ONLY 1 TABLET 112 MCG.HYPOTHYROIDISM melatonin 1 mg/mL liquid -- -- 05/07/23 -- Administer 5 mL (5 mg total) via small bowel tube at bedtime as needed for sleep. metFORMIN (GLUCOPHAGE) 1,000 mg tablet -- -- 05/07/23 06/10/24 Administer 1 tablet (1,000 mg total) via small bowel tube daily with dinner. ondansetron ODT (ZOFRAN-ODT) 8 mg disintegrating tablet 05/10/2023 at 1245 -- 05/07/23 -- Dissolve 1 tablet (8 mg total) in the mouth every 8 (eight) hours as needed for nausea or vomiting. pantoprazole (PROTONIX) 20 mg EC tablet 05/11/2023 -- -- -- Take 40 mg by mouth every morning before breakfast. Notes: First dose taken today pen needle, diabetic (UltiCare Pen Needle) 31 gauge x 5/16 needle -- -- 07/18/22 -- 1 Injection by abdominal subcutaneous route daily. Notes: Place on file vit27,calcium/iron/FA (multivitamin/mineral-) tablet -- -- 05/07/23 -- Administer 1 tablet via small bowel tube daily. probenecid-colchicine (COLBENEMID) 500-0.5 mg per tablet -- -- 05/07/23 06/06/23 Administer 1 tablet via small bowel tube 2 (two) times a day as needed (gout flare). simvastatin (ZOCOR) 20 mg tablet 05/10/2023 at 1700 -- 05/07/23 -- Administer 1 tablet (20 mg total) via small bowel tube at bedtime. * Kenia Bhandari M.D. - 05/13/2023 6:04 AM CDT [facility] PROGRESS NOTE SUBJECTIVE Mr. Lau is a 72 year old male admitted to inability to tolerate tube feeding at home due to nausea and vomiting. Interval Events -overnight, the patient initially felt improved after trialing the Peptamen. However, he was unableto tolerate the rate of 10 mL/hr throughout the night and was never able to trial 20 mL/hr. He thenhad an episode of emesis around 6:30 AM that was watery and brown. His tube feeds were disconnectedat that time -on pre-rounds, the patient felt improved and stated he was okay with restarting feeds so feeds started on 10 mL/hr with uptitration as tolerated I have reviewed the current medication list. OBJECTIVE VITAL SIGNS Temperature: [36.6 ??C-37.3 ??C] 36.7 ??C Resp Rate: [16] 16 Blood Pressure: (106-117)/(57-61) 117/60 SpO2: [93 %-99 %] 93 % Pulse Rate: [75-82] 75 I/O 05/11 2359 Enteric (NG/OG) Tube 60 Maintenance IV 656.3 Total Intake(mL/kg) 716.3 (8.7) Net +716.3 Unmeasured Urine Occurrence 3 x Unmeasured Stool Occurrence 1 x PHYSICAL EXAM General: lying comfortably in bed, in no acute distress, conversational, NJ tube in place Skin: no jaundice, no rashes noted ENT: Hearing grossly intact. Dentition intact. No oral or pharyngeal erythema or lesions noted. Lungs: clear to auscultation bilaterally, non-labored respirations on room air, no cough Heart: regular rate and rhythm, no murmurs noted Abdomen: soft, non-distended, diffuse tenderness to deep palpation worst in the right upper quadrant and left lower quadrant, Brooks's sign negative, no guarding or rebound, hypoactive bowel sounds Neuro: AOx3, no focal neurologic deficits noted, able to move all 4 extremities spontaneously, chronic R foot drop Musculoskeletal: warm and well perfused, peripheral pulses palpated, no calf tenderness DIAGNOSTICS I have personally reviewed laboratory data, cultures, imaging, and ECGs since admission, with duncan findings discussed below in the assessment and plan. ASSESSMENT / PLAN Mr. 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 His medical comorbidities include thyroid cancer, postsurgical hypothyroidism, T2DM, CKD stage 2, gout, hypertension, and hyperlipidemia. The patient was recently hospitalized for nausea/vomiting and abdominal pain with a newly diagnosedduodenal mass highly suspicious for B cell lymphoma (biopsy indeterminate due to crush artifact anddegenerative changes). He has since struggled with nausea and emesis after tube feeds, leading to insufficient feeding throughout the day. His last documented weight on 05/09 was 86.8 kg and his weight on admission was 82 kg. In the ED, CT showed proper placement of NJ tube without any gross lab abnormalities. His labs remain reassuring and do not show electrolyte abnormalities seen in recurrent emesis. His weight loss is likely due to a combination of inability to tolerate tube feeds as well asB cell lymphoma. Discussed with nutrition and will trial Peptamen instead of his home Nutren for tube feeds as well as monitor for refeeding. Patient noted to have ROMEO on admission with creatinine now 1.15 from baseline 0.8. Cystatin C 1.27.This is likely prerenal in the setting of poor tube feed intake, less likely secondary to emesis tim does not have electrolyte derangement. 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 Given that he is still unable to tolerate adequate enteral intake, hematology consulted to see if an inpatient workup is indicated. They will evaluate the patient, but current planis to obtain inpatient TTE on 05/14, have the hematology team coordinate an inpatient bone marrow biopsy, and to discuss with the GI proceduralist team about repeating a duodenal biopsy. Today's Plan: -per nutrition, continue tube feeds with uptitrating continuous Peptamen 1.5 with goal 65 mL/hr; multivitamin with minerals; IV thiamine 100 mg x5 days, refeeding labs BID -schedule Zofran and Compazine q6 hrs, repeat ECG tomorrow to monitor QTc -olanzapine for nausea and appetite -continue LR at 75 mL/hr for rehydration in the setting of poor enteral intake -monitor ROMEO with BMP and cystatin C -inpatient TTE tomorrow -hematology consult, appreciate recommendations -likely bone marrow biopsy inpatient -will discuss with GI proceduralist team regarding obtaining another duodenal biopsy 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 -per nutrition, will change tube feeds to Peptamen 1.5 at 10 mL/hr with uptitration by 10 mL/hr every 12 hours with goal of 65 mL/hr -multivitamin -IV thiamine 100 mg x5 days due to refeeding risk -monitor refeeding labs (K, Mg, Phos) twice daily and replete as needed -LR at 75 mL/hr for rehydration in the setting of poor enteral intake -patient can have ice chips and water PO for comfort -pain control with Tylenol 500 mg q6 PRN -lansoprazole 30 mg -q6 scheduled Zofran and Compazine for nausea -olanzapine 2.5 mg for nausea and appetite -will recheck QTc tomorrow AM -hematology consult for possible inpatient workup of B cell lymphoma, appreciate recommendations -TTE tomorrow -likely bone marrow biopsy inpatient -will discuss with GI proceduralist team regarding obtaining another duodenal biopsy # ROMEO on CKD # CKD2 Likely prerenal in the setting of recurrent emesis and poor enteral intake. Patient's baseline creatinine is around 0.8, now 1.15 on admission. Cystatin C 1.27. -fluid resuscitation with LR 75 mL/hr x 24 hrs - Daily BMP - Continue LICENSED MIDWIFE allopurinol # Diabetes Mellitus Type 2 With Neuropathy # Hypothyroidism Post-Surgical - Continue LICENSED MIDWIFE levothyroxine - Hold antihyperglycemics - Moderate CS # Hypertension Essential Primary # Hyperlipidemia # Apnea Sleep Obstructive - Continue statin (changed to atorvastatin 20mg here) - Continue LICENSED MIDWIFE aspirin Current Activity/Mobility: BMAT Level 4 (Able to stand and walk; needs staff assist if fall risk factors identified) Diet: tube feeds, PO ice chips and water for comfort diet Tubes/lines: PIV and NJ VTE prophylaxis: heparin Bowel regimen: Code status: Full Code Disposition: Home with expected discharge date uncertain Stable to discharge criteria (not met): Nutrition/hydration Severe Malnutrition The patient meets the ASPEN Criteria of malnutrition based on: Average estimated Intake: Less than or equal to 50% for 5 or more days Weight Loss: >5% in 1 month Body Fat: Moderate Loss Muscle Mass: Severe Loss This is in the context of Acute Illness or Injury. Agree with Registered Dietitian's assessment and treatment plan: Nutrition Interventions Interventions: Enteral nutrition, Vitamin and mineral supplements Plan discussed with [facility] Social Work Instructor, Sandra Rosenberg M.D., who was present during the duncan portions of the evaluation today. Please page the [facility] service pager at [phone] with any questions. Kenia Bhandari M.D. PGY-1 Internal Medicine 05/13/23 * Kenia Bhandari M.D. - 05/12/2023 6:47 AM CDT [facility] PROGRESS NOTE SUBJECTIVE Mr. Lau is a 72 year old male admitted to inability to tolerate tube feeding at home due to nausea and vomiting. Interval Events -patient states that he has not had a full feeding since his discharge on 05/07 due to nausea and vomiting after his tube feeds. Last episode of emesis was 3:30 PM on 05/11 -he notes significant weight loss since his recent admission -he has seen hematology for presumed B cell lymphoma with TTE scheduled on 05/14 and biopsy on 05/16 after undergoing PET on 05/10 I have reviewed the current medication list. OBJECTIVE VITAL SIGNS Temperature: [36.5 ??C-36.7 ??C] 36.5 ??C Resp Rate: [16-18] 16 Blood Pressure: (112-117)/(62-95) 116/62 SpO2: [96 %-99 %] 99 % Height: [175 cm] 175 cm Weight: [82 kg] 82 kg BSA (Calculated - sq m): [1.99 sq meters] 1.99 sq meters BMI (Calculated): [26.8 kg/m??] 26.8 kg/m?? Pulse Rate: [77-94] 89 I/O 05/10 235 Unmeasured Urine Occurrence 1 x Unmeasured Stool Occurrence 1 x PHYSICAL EXAM General: sleeping in bed, in no acute distress, conversational, NJ tube in place Skin: no jaundice, no rashes noted ENT: Hearing grossly intact. Dentition intact. No oral or pharyngeal erythema or lesions noted. Lungs: clear to auscultation bilaterally, non-labored respirations on room air, no cough Heart: regular rate and rhythm, no murmurs noted Abdomen: soft, non-distended, diffuse tenderness to deep palpation, no guarding or rebound, hypoactive bowel sounds Neuro: AOx3, no focal neurologic deficits noted, able ot move all 4 extremities spontaneously Musculoskeletal: warm and well perfused, peripheral pulses palpated, no calf tenderness DIAGNOSTICS I have personally reviewed laboratory data, cultures, imaging, and ECGs since admission, with duncan findings discussed below in the assessment and plan. ASSESSMENT / PLAN Mr. 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 His medical comorbidities include thyroid cancer, postsurgical hypothyroidism, T2DM, CKD stage 2, gout, hypertension, and hyperlipidemia. The patient was recently hospitalized for nausea/vomiting and abdominal pain with a newly diagnosedduodenal mass highly suspicious for B cell lymphoma (biopsy indeterminate due to crush artifact anddegenerative changes). Since discharge, he has struggled with post-prandial nausea and emesis aftertube feeds. He has tried to change the rate and amount of tube feeds with no improvement, leading to insufficient tube feeds throughout the day. His last documented weight on 05/09 was 86.8 kg with weight on admission noted to be 82. In the ED, CT showed proper placement of NJ tube without any grosslab abnormalities. His labs remain reassuring and do not show electrolyte abnormalities seen in recurrent emesis. His weight loss is likely due to a combination of inability to tolerate tube feeds aswell as B cell lymphoma. Will discuss with nutrition about any changes in tube feeds and give anti-emetics for nausea. Patient noted to have ROMEO on admission with creatinine now 1.16 from baseline 0.8. Cystatin C 1.39.This is likely prerenal in the setting of poor tube feed intake, less likely secondary to emesis tim does not have electrolyte derangement. Today's Plan: -LR at 75 mL/hr x20 hrs for rehydration in the setting of poor tube feed intake -per nutrition, change tube feeds from Nutren to Peptamen 1.5. 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 Multivitamin -patient can have ice chips and water PO for comfort -pain control with Tylenol 500 mg q6 PRN -lansoprazole 30 mg -q6 PRN Zofran and Compazine for nausea -refeeding labs (K, Mg, Phos), will replete as needed -daily BMP # ROMEO on CKD # CKD2 Likely prerenal in the setting of recurrent emesis and poor enteral intake. Patient's baseline creatinine is around 0.8, 1.10 on admission. Cystatin C 1.39. -fluid resuscitation with LR 75 mL/hr x 20 hrs - Daily BMP - Continue LICENSED MIDWIFE allopurinol # Diabetes Mellitus Type 2 With Neuropathy # Hypothyroidism Post-Surgical - Continue LICENSED MIDWIFE levothyroxine - Hold antihyperglycemics - Moderate CS # Hypertension Essential Primary # Hyperlipidemia # Apnea Sleep Obstructive - Continue statin (changed to atorvastatin 20mg here) - Continue LICENSED MIDWIFE aspirin Current Activity/Mobility: BMAT Level 4 (Able to stand and walk; needs staff assist if fall risk factors identified) Diet: tube feeds, PO ice chips and water for comfort diet Tubes/lines: PIV and NJ VTE prophylaxis: heparin Bowel regimen: Code status: Full Code Disposition: Home with expected discharge date uncertain Stable to discharge criteria (not met): Nutrition/hydration Plan discussed with [facility] Social Work Instructor, Sandra Rosenberg M.D., who was present during the duncan portions of the evaluation today. Please page the [facility] service pager at [phone] with any questions. Kenia Bhandari M.D. PGY-1 Internal Medicine 05/12/23 documented in this encounter H&P Notes * Yue Mills M.D. - 05/12/2023 12:58 AM CDT GI-B ADMISSION HISTORY & PHYSICAL Date/Time: 05/12/2023 12:58 AM CDT Room: [address] Patient Name: Hola Lau : 1950 Sex: male Code Status: Full Code CHIEF COMPLAINT Nausea, vomiting HISTORY OF PRESENT ILLNESS Mr. Hola Lau is a 72 y.o. 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 Briefly, patient was hospitalized 04/29-05/07 for nausea/vomiting and was found to have a partially obstructive duodenal mass that is highly suspicious for a B- cell lymphoma (biopsy was indeterminate due to crush artifact and degenerative changes). The patient initially presented with an approximate 2-3 week history of decreased appetite and abdominal pain with postprandial vomiting after most meals. He also had intermittent melena at the beginning of symptom onset which progressed to a flight-mucous diarrhea. Imaging showed a nonobstructive mass in the duodenum (predominantly involving the 3rdportion) with a mildly dilated CBD and distended gallbladder. An NJ tube was placed and the patientwas started on enteral tube feeding. During hospitalization, the patient has struggled with tube feed advancements due to abdominal pain and nausea. The tube was assessed for proper placement severaltimes and was always found to be in the appropriate spot. Then, 2 days after discharge, the patient began to experience difficulties with feeding. He has been able to tolerate liquids through the tube; however, he is not tolerating any feeding despite family members initiating tube feeds slowly and in small amounts, the patient develops vomiting shortly after every feeding. He also describes some bloody/brown material in his emesis which is concerning for blood. Other than some pain in his neck secondary to recurrent emesis, the patient overall feels well and denies fevers, abdominal pain, or nausea. The patient describes a sensation of acid reflux immediately postprandially. CT imaging obtained in the ED reconfirms an FDG avid mass in the 3rd aspect of the duodenum and shows a properly placed enteric tube with the tip in the distal jejunum, as well as gastric distention and mild inflammatory stranding involving the duodenum. Hemoglobin tonight is reassuringly normal and the patient is without significant electrolyte abnormalities. Lipase is notably normal at 22. The patient arrived to the floor in stable condition. He was largely asymptomatic on interview, only endorsing to me a ???hungry stomach?? with lots of gurgling and general discomfort. He denies overt pain, fevers, or nausea at baseline. He describes postprandial acid reflux type symptoms that arerelieved with emesis. REVIEW OF SYSTEMS Negative except per HPI. PAST MEDICAL & SURGICAL HISTORY PAST MEDICAL HISTORY Past Medical History: Diagnosis [...] HAND SURGERY 2019 tophi removal left thumb ROTATOR CUFF REPAIR Bilateral THYROID SURGERY 1992 two surgeries TONSILLECTOMY 1950 VASECTOMY 1978 SOCIAL HISTORY Social History Socioeconomic History Marital status: Single Spouse name: Not on file Number of children: Not on file Years of education: Not on file Highest education level: Associate degree: occupational, technical, or vocational program Occupational History Not on file Tobacco Use Smoking status: Former Packs/day: 1.00 Years: 22.00 Pack years: 22.00 Types: Cigarettes Quit date: 02/07/1989 Years since quittin.2 Smokeless tobacco: Former Types: Snuff Quit date: 04/18/2023 Vaping Use Vaping Use: former use Substance and Sexual Activity Alcohol use: Yes Alcohol/week: 2.0 standard drinks of alcohol Types: 2 Cans of beer per week Drug use: No Sexual activity: Never Other Topics Concern Caffeine Concern No Social History Narrative Not on file Social Determinants of Health Financial Resource Strain: Low Risk (01/10/2023) Overall Financial Resource Strain (CARDIA) Difficulty of Paying Living Expenses: Not hard at all Food Insecurity: No Food Insecurity (01/10/2023) Hunger Vital Sign Worried About Running Out of Food in the Last Year: Never true Ran Out of Food in the Last Year: Never true Transportation Needs: No Transportation Needs (01/10/2023) PRAPARE - Transportation Lack of Transportation (Medical): No Lack of Transportation (Non-Medical): No Physical Activity: Insufficiently Active (01/10/2023) Exercise Vital Sign Days of Exercise per Week: 2 days Minutes of Exercise per Session: 20 min Intimate Partner Violence: Not At Risk (01/10/2023) Humiliation, Afraid, Rape, and Kick questionnaire Fear of Current or Ex-Partner: No Emotionally Abused: No Physically Abused: No Sexually Abused: No Housing Stability: Low Risk (01/10/2023) Housing Stability Vital Sign Unable to Pay for Housing in the Last Year: No Number of Places Lived in the Last Year: 1 Unstable Housing in the Last Year: No FAMILY HISTORY Family History Problem Relation Age of Onset Diabetes Mother Thyroid disease Mother Psoriasis Mother Diabetes Father Hypertension Father Stroke Father Thyroid disease Sister Thyroid disease Sister Thyroid disease Sister Breast cancer Sister Alcohol abuse Son Thyroid cancer Neg Hx HOME MEDICATIONS Current Outpatient Medications Medication Instructions acetaminophen (TYLENOL) 500 mg, small bowel tube, Every 6 hours PRN allopurinoL (ZYLOPRIM) 300 mg, small bowel tube, Daily amitriptyline (ELAVIL) 12.5 mg, small bowel tube, Bedtime PRN aspirin 81 mg, small bowel tube, Daily empagliflozin (JARDIANCE) 10 mg, small bowel tube, Daily before breakfast ixekizumab (TALTZ) 80 mg, subcutaneous, Every 28 days, One injection per month lansoprazole (PREVACID) 30 mg, small bowel tube, Daily before breakfast levothyroxine (SYNTHROID, LEVOTHROID) 112 mcg, small bowel tube, Daily before breakfast, TAKE 2 TABLETS(224 MCG) BY MOUTH DAILY. EXCEPT ON SUNDAYS, TUESDAYS, AND THURSDAYS TAKE ONLY 1 TABLET 112 MCG.HYPOTHYROIDISM melatonin 5 mg, small bowel tube, Bedtime PRN metFORMIN (GLUCOPHAGE) 1,000 mg, small bowel tube, Daily with dinner ondansetron ODT (ZOFRAN-ODT) 8 mg, oral, Every 8 hours PRN pantoprazole (PROTONIX) 40 mg, oral, Daily before breakfast pen needle, diabetic (UltiCare Pen Needle) 31 gauge x 5/16 needle 1 Injection, abdominal subcutaneous, Daily vit27,calcium/iron/FA (multivitamin/mineral-) tablet 1 tablet, small bowel tube, Daily probenecid-colchicine (COLBENEMID) 500-0.5 mg per tablet 1 tablet, small bowel tube, 2 times daily PRN simvastatin (ZOCOR) 20 mg, small bowel tube, Daily at bedtime PHYSICAL EXAM VITAL SIGNS ON ADMISSION Temperature: [36.7 ??C] 36.7 ??C Resp Rate: [17-18] 17 Blood Pressure: (112-117)/(64-95) 117/78 SpO2: [96 %-97 %] 96 % Pulse Rate: [77-94] 78 General: Lying comfortably in bed. Cooperative, in no acute distress. Eyes: Clear, non-injected, anicteric sclera. ENT: MMM. No oropharyngeal exudate, erythema, or lesions. Cardiac: Normal rate, regular rhythm. S1, S2 auscultated with no murmurs, rubs, or extra heart sounds. Lungs: Non-labored breathing on room air. Abdomen: Normoactive bowel sounds in the abdomen, hyperactive bowel sounds over the epigastric region. Soft, non-distended, mildly tender to deep palpation throughout. No guarding or rebound tenderness. Extremities: Warm and well-perfused UE and LE. No lower extremity edema. No calf tenderness upon palpation or asymmetrical swelling. Skin: No rashes. Jaundice absent Neuro: Alert, oriented x 3. Asterixis absent Psych: Appropriate affect. DIAGNOSTIC STUDIES THUS FAR LABS Recent Labs 05/11/232030 WBC 5.8 HGB 10.5 L PLT 285 INR 1.1 NA 137 CL 99 BUN 20 CREATININE 1.10 CALCIUM 8.7 L ALBUMIN 3.5 BILITOT 0.3 AST 22 ALT [address] Abdomen Pelvis 05/11/2023: IMPRESSION: 1. FDG avid mass in the 3rd aspect of the duodenum consistent with malignancy. 2. Interval placement of enteric tube with persistent distention of the stomach. 3. Unchanged mesenteric, portacaval, and retroperitoneal lymphadenopathy. 4. Pulmonary nodule in the left lung base measuring up to 8 mm. Chronic fibrotic lung disease. ASSESSMENT AND PLAN #1 Diabetes Mellitus Type 2 With Diabetic Neuropathy (HCC) #2 Hypertension Essential Primary #3 Hypothyroidism Postsurgical #4 Obesity Body Mass Index 30-39.9 Adult #5 Hyperlipidemia #6 Apnea Sleep Obstructive #7 Chronic Kidney Disease Stage 2 Glomerular Filtration Rate 60 To 89 #8 Nausea And Vomiting #9 Mass Duodenum #10 Vomiting Mr. Hola Lau is a 72 y.o. 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 This is a patient with known intestinal obstruction and NJ tube appropriately located within the distal jejunum, who has been suffering with postprandial emesis and abdominal discomfort since prior to NJ placement. The patient continues to have unintentional weight loss in the setting of decreased enteral nutrition. He also has evidence of gastric distention on imaging. I wonder how much of the patient's presentation is related to general bowel irritation in the setting of mass and foreign bodyversus psychologic, as well as complication by gastroparesis. The patient's electrolytes are reassuring and not necessarily consistent with recurrent emesis. Regardless, the tube is positioned correctly and I will plan to have him evaluated by nutrition in the morning. In the meantime, we will continue maintenance fluids overnight and allow the patient to take liquids via the to as he can tolerate. Regarding his gastroparesis, I would consider initiation of metoclopramide to help ease his symptoms. We will also continue a PPI given the presence of foreign body passing through the pyloric sphincter. I will follow refeeding labs given the patient's history of decreased enteral intake. Patient also has evidence of an ROMEO on CKD 2, I suspect prerenal in the setting of recurrent emesisand poor p.o. intake. The patient's baseline creatinine appears to be around 0.8, and was 1.10 on this admission. Given history of recent/rapid weight loss, I plan to compare with a Cystatin C. Regardless, we will follow with daily labs and adequate fluid resuscitation. Rest of plan below. # Duodenal Mass, 3rd Portion, Likely B-Cell Lymphoma # Poor Enteral Nutrition # Nausea # Recurrent Emesis # Unintentional Weight Loss # Gastric distention, Query Gastroparesis NJ tube in place on CT imaging obtained on admission, unclear etiology for recurrent emesis - NPO (can have water/ice chips) - nutrition consult for help with tube feeds - Pain control with reduced dose tylenol 500mg Q6H PRN - Lansoprazole 30mg QAM - Refeeding labs - Zofran for nausea/anti serotonergic properties - Can consider metoclopramide for gastroparesis - PT/OT evaluation # ROMEO on CKD # CKD2 - Likely prerenal in the setting of recurrent emesis and poor PO intake - Patient's baseline creatinine is around 0.8, 1.10 on admission - Cystatin C with AM labs - Adequate fluid resuscitation - Daily BMP - Continue LICENSED MIDWIFE allopurinol # Diabetes Mellitus Type 2 With Neuropathy # Hypothyroidism Post-Surgical - Continue LICENSED MIDWIFE levothyroxine - Hold antihyperglycemics - Moderate CS # Hypertension Essential Primary # Hyperlipidemia # Apnea Sleep Obstructive - Continue statin (changed to atorvastatin 20mg here) - Continue LICENSED MIDWIFE aspirin Diet: NPO diet Tubes/lines: PIV and NJ VTE prophylaxis: heparin Code status: Full Code Disposition: Home with expected discharge date Surrogate Decision Maker: Partner, Rhona Cruz Stable to discharge criteria (not met): Pending further workup Patient was seen and staffed with Sandra Kennedy M.D.. Please consult the [facility] [place] [phone] with questions. Electronic Signature: Yue Mills M.D. PGY-2 Internal Medicine 05/12/2023 12:58 AM CDT Associated attestation - Sandra Kennedy M.D., M.S. - 05/12/2023 11:00 AM CDT I saw and evaluated the patient, participating in the duncan portions of the service. I reviewed the resident???s note. I agree with the resident???s findings and plan. Briefly, he was admitted as he is not tolerating enteral feeding at home. He reports having nausea and feeling full with his current tube feedings. Physical examination General: Resting in his left side in his bed, appears to be mildly uncomfortable secondary to nausea. HEENT: Normocephalic, atraumatic, NJ tube in place, mucous membranes appear moist. Chest: Nonlabored breathing on room air. Abdomen: Soft. 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 We will restart his enteral feeding at a low rate and gradually increase every 12 hours by 10 cc. 2. We will involve the nutrition team to see if there is a different formulation that they would suggest. 3. We will plan to start olanzapine to see if that helps him tolerate enteral feeding better. 4. We will plan to keep his outpatient appointments for rebiopsy to confirm the diagnosis of lymphoma. documented in this encounter Procedure Notes * Curry Pleitez R.N. - 05/14/2023 11:17 AM CDTAssociated Order(s): Biopsy Bone Marrow, Sedated Post-Procedure Diagnose(s): Vomiting; Mass Duodenum Biopsy Bone Marrow, Sedated Performed by: Curry Pleitez R.N. Authorized by: Juan Guerrero, M.B.B.S. Care team members present 1. Curry Pleitez R.N. 2. Cathy Joshi PROCEDURE DETAILS Procedure: Bone Marrow biopsy and Bone Marrow aspiration Bone marrow biopsy Laterality: Right Location of biopsy: Posterior iliac crest Patient position: Side lying Intra-procedure monitoring: Blood pressure monitoring, continuous pulse oximetry, heart rate and respirations Type of Needle: Manual bone marrow biopsy needle Findings: Slides obtained, aspirate obtained with spicules noted and fluid obtained Bone marrow aspiration Aspirate volume (mL): 20 CONSENT Consent obtained: written (Risks, benefits and [...] confirmed in a procedural pause. PRE-PROCEDURE DETAILS Appropriate hand hygiene, gown, cap, mask, protective eyewear, sterile gloves, skin preparation, sterile drape, and strict aseptic technique were utilized as applicable for the procedure.: yes Site preparation: chlorhexidine SEDATION / ANESTHESIA Anesthesia method: local infiltration and anesthesia Local infiltrate type: lidocaine POST-PROCEDURE DETAILS Procedure completed successfully: yes Complications: no apparent complications Post-procedure instructions: Post-procedure activity instructions provided COMMENTS 100 mg 1 % lidocaine administered SQ Pressure dressing applied Pamphlet [id number] given to family documented in this encounter Consult Notes * Rufino Montoya M.D. - 05/14/2023 1:05 PM CDT Nutrition Support Service Consultation REFERRAL: Consults SUBJECTIVE CHIEF COMPLAINT/REASON FOR VISIT Hola Lau is a 72 y.o. male who presents for evaluation of Vomiting. HISTORY OF PRESENT ILLNESS 72 year old male with inability to tolerate enteral feeding by NJ tube. He has lost 40 pounds sinceMay 2022. Duodenal mass noted and initial biopsy: necrotizing ulcer. Then 04/30 endoscopy showed large ulcerated mass suspicious for B cell lymphoma. Pending full workup plan chemotherapy with be initiated. Data reviewed. The following portions of the patient's history were reviewed and updated as appropriate: allergies, current medications, family history, medical history, social history, surgical history, problem list. REVIEW OF SYSTEMS Pertinent positives are in HPI and remainder of the Review of Systems is negative. NUTRITION NEEDS: Height: 175 cm Admission Weight: 82 kg (05/11/2023) Current Weight: 82 kg BMI (Calculated): 26.8 kg/m?? Total Calorie Needs: 7089-6042 calories/day Method to Estimate Energy Needs: kcal/kg ( ) Weight Used for Equation Calculations: 82 kg Total Protein Needs: 98 - 123 grams/day Method to Estimate Protein Needs (g/kg): 1.2 - 1.5 gm/kg Weight Used to Calculate Protein Needs (Kg): 82 kg Results from last 7 days Lab Units 05/14/23 0422 05/12/2354305/11/232030 SODIUM P mmol/L -- -- 137 SODIUM mmol/L 138 < > -- CHLORIDE P mmol/L -- -- 99 CHLORIDE mmol/L 100 < > -- CREATININE mg/dL 1.14 < > 1.10 ESTIMATED GFR EGFR mL/min/BSA 67 < > 70 BUN P mg/dL -- -- 20 BUN mg/dL 17 < > -- GLUCOSE P mg/dL -- -- 103 GLUCOSE S mg/dL 106 < > -- CALCIUM P mg/dL -- -- 8.7* CALCIUM mg/dL 8.3* < > -- MAGNESIUM mg/dL 2.0 < > -- PHOSPHORUS INORGANIC mg/dL 3.0 < > -- ALBUMIN g/dL -- -- 3.5 BILIRUBIN TOTAL mg/dL -- -- 0.3 ALK PHOS U/L -- -- 108 ALT U/L -- -- 14 AST U/L -- -- 22 < > = values in this interval not displayed. OBJECTIVE PHYSICAL EXAMINATION Physical Exam General: Alert Abdomen: Soft Eyes: Anicteric ENT: Nasal Dobhoff tube Ext: No edema Skin: Warm Neuro:Alert Heart: Rate 79 ASSESSMENT / PLAN I reviewed the patient's notes, clinical status, nutrition program and lab data. Nutrition Support Service was asked to consider for parenteral nutrition. 72 year old male with inability to tolerate enteral feeding by NJ tube. He has lost 40 pounds sinceMay 2022. Duodenal mass noted and initial biopsy: necrotizing ulcer. Then 04/30 endoscopy showed large ulcerated mass suspicious for B cell lymphoma. Pending full workup plan chemotherapy will be initiated. Endoscopy today: duodenal mass with partial obstruction and Dobhoff placed for decompression and feeding. He is tolerating jejunal tube feeding this morning. Recommended that patient let nursing know when he felt full to allow decompression at that time. 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 Please page [facility] ([phone]) or [facility] ([phone]) Nutrition Support Service pager with questions. * Isauro Farris M.D. - 05/13/2023 11:06 AM CDTAssociated Order(s): IP CONSULT TO HEMATOLOGY HEMATOLOGY CONSULT NOTE SUBJECTIVE REASON FOR CONSULT Outpatient biopsy with presumed duodenal B cell lymphoma, admitted with inability to tolerate PO intake despite NJ tube, expedite workup? HISTORY OF PRESENT ILLNESS Mr. Hola Lau is a 72 y.o. male admitted to the gastroenterology service with inability to tolerate PO intake despite NJ tube. Over the last several months, patient has been having worsening nausea/vomiting, abdominal pain that ultimately culminated in hospital admissions during which a duodenal mass was found and biopsied. Although biopsy had some crush artifact, there is strong suspicion for B cell lymphoma for which he has been seen by Dr. Flores. The current plan is for repeat biopsy for diagnostic confirmation follow ed by initiation of therapy. Other medical comorbidities include: History of CVA Hypertension Hyperlipidemia History of thyroid cancer status post thyroidectomy with post thyroidectomy hypothyroidism Gout History of tobacco use, quit in his 40s On speaking with the patient this morning he endorses the above history. He states he has been having stomach upset and nausea and vomiting since the beginning of this year with acute worsening beingin the context of the above- mentioned hospitalizations and workup. He denies any fevers, chills, night sweats. He has not noticed any lumps or bumps. He did mention continued nausea this morning withan episode of small volume emesis/phlegm production. He has had consistent and persistent reflux symptoms since feeding his started through NG tube. His was with him at the bedside. We discussed his diagnosis and the plans moving forward. REVIEW OF SYSTEMS As per HPI, otherwise negative. I have reviewed the past medical history, family history, social history, allergies, and medications. OBJECTIVE INS AND OUTS Intake/Output Summary (Last 24 hours) at 05/13/2023 1106 Last data filed at 05/13/2023 0638 Gross per 24 hour Intake 953.25 ml Output -- Net 953.25 ml VITAL SIGNS Temperature: [36.6 ??C-36.8 ??C] 36.7 ??C Resp Rate: [16] 16 Blood Pressure: (106-117)/(57-61) 117/60 SpO2: [93 %-98 %] 93 % Pulse Rate: [75-82] 75 PHYSICAL EXAM General: Normal-appearing elderly male, in no acute distress Lymph: No appreciable anterior/posterior cervical, pre/postauricular, occipital, submandibular, submental, supraclavicular lymphadenopathy Cardiovascular: Regular rate and rhythm, normal S1, S2, I/ systolic ejection murmur heard best atthe aortic area, no rubs, gallops, no appreciable lower extremity edema, extremities warm and well perfused Lungs: Breathing comfortably on room air, anterior lung atkinson clear to auscultation bilaterally Abdomen: Bowel sounds present, tenderness to palpation in the right upper and lower quadrants, no guarding, no rigidity Neuro: grossly intact to observation, responding appropriately to questions and commands, clear speech Psych: Pleasant, cooperative, invested in care LABS Lab Results Component Value Date WBC 4.7 05/13/2023 HGB 9.3 (L) 05/13/2023 HCT 30.2 (L) 05/13/2023 MCV 80.1 05/13/2023 PLT 269 05/13/2023 Lab Results Component Value Date NA 138 05/13/2023 CL 101 05/13/2023 CREATININE 1.15 05/13/2023 EGFR 67 05/13/2023 BUN 21 05/13/2023 ANIONGAP 12 05/13/2023 GLUCOSE 93 05/13/2023 CALCIUM 8.3 (L) 05/13/2023 Lab Results Component Value Date ALT 14 05/11/2023 AST 22 05/11/2023 ALKPHOS 108 05/11/2023 BILITOT 0.3 05/11/2023 Lab Results Component Value Date INR 1.1 05/11/2023 PT 12.1 05/11/[address] Abdomen Pelvis with IV Contrast Result Date: 05/12/2023 Impression: 1. Stable duodenal malignancy centered in the 3rd segment of the duodenum with luminal narrowing and mild-moderate upstream fluid distended stomach and duodenum suggestive of a low-grade malignant duodenal obstruction. Interval placement of an enteric tube past the duodenal luminal narrowing with tip in the jejunum. Possible microperforation of the transverse duodenum involving the duodenal malignancy. 2. Unchanged mesenteric, portacaval, and retroperitoneal lymphadenopathy. DX Abdomen Portable Anterior Posterior 1 View Result Date: 05/12/2023 Impression: Comparison abdominal radiograph 05/06/2023. Interval advancement of the enteric tube with tip now extending over the proximal jejunum. Vascular stent in the left upper quadrant. PET CT Skull to Thigh FDG Result Date: 05/10/2023 Impression: Duodenal malignancy. Multiple other observations as detailed in the findings. DX Abdomen Portable Anterior Posterior 1 View Result Date: 05/06/2023 Impression: Comparison abdominal radiograph 05/03/2023. Interval advancement of the nasojejunal tube with tip overlying the proximal jejunum. 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 Hola Lau is a 72 y.o. male admitted to the gastroenterology service with inability to tolerate PO intake/enteral feeding via NJ tube. Medical comorbidities include history of CVA, hypertension, hyperlipidemia, history of thyroid cancer status post thyroidectomy with resultant hypothyr oidism, gout, remote history of tobacco use. The current admission is in the context of subacute progressive postprandial nausea, vomiting, abdominal pain resulting in significant weight loss (40+ lb) since January 2023. He was ultimately hospitalized in April with these symptoms at which time a duodenal mass was identified. Initial biopsy (04/24/2023) revealed a necrotizing ulcer without evidence of active malignancy. However, repeat EGD withextended push enteroscopy (04/30/2023) identified large circumferential infiltrative and ulcerated mass that was biopsied and found to be suspicious for B-cell lymphoma. Unfortunately, tissue sample was inadequate due to crush artifact and degenerative changes. However, lymphoid infiltrates stain positive extensively for CD20, PAX5, CD10, BCL6, and BCL2. Ki-67 at least 60%. He established care with [facility] on 05/09/[address] Lim and Mark. Plan at that time was for PET scan followed by repeat biopsy of most FDG avid lesion for confirmation of diagnosis. In the meantime, several pretreatment tests were ordered including laboratory, echocardiogram, bone marrow biopsy. At this juncture, although there is no exact tissue diagnosis, his lymphoma is likely aggressive and we would favor initiation of treatment as soon as possible in hopes of avoiding additional complications such as overt bowel perforation (possible mircoperforation noticed on CT imaging). As such, we would recommend completing his pretreatment workup as an inpatient by obtaining TTE and bone marrow biopsy. Most of laboratory workup has already been completed (beta 2 microglobulin, LDH, hepatitis panel, HIV). Regarding tissue diagnosis, we will be in contact with Dr. Flores tomorrow for further discussion of repeat biopsy. We are hopeful that a repeat endoscopic biopsy of the duodenum would be possible. Pending the above workup, we will likely pursue initiation of chemotherapy, likely R-CHOP (final regimen to be decided after further discussion) as an inpatient. This will require transfer to a hematology service when the time comes. We discussed this with the patient and his , who are both amenable. RECOMMENDATIONS: TTE for EF assessment prior to anthracycline Bone marrow biopsy (we will order), likely 05/14, NPO at midnight Duodenal biopsy if possible Plan for initiation of chemotherapy while inpatient, final regimen to be decided based on above workup (likely R-CHOP) Thank you for involving us in the care of this patient. Please contact the Hematology Consult Team with any questions or concerns. Case discussed with Hematology Social Work Instructor Dr. Correa. Isauro Farris M.D. Internal Medicine, PGY 2 Associated attestation - Zelda Correa M.D. - 05/15/2023 11:54 AM CDT I saw and evaluated the patient, participating in the duncan portions of the service. I agree with thefindings and plan as outlined in the consult note. * Jose Brady M.S., RDN, LD - 05/12/2023 3:16 PM CDTAssociated Order(s): IP CONSULT TO DIETITIAN Clinical Nutrition: Initial Assessment Clinical Nutrition was requested to evaluate patient for positive nursing baseline nutrition screenfor receiving tube feedings prior to admission SUBJECTIVE Mr. Lau is a 72 y.o. male admitted for Mass Duodenum. Pmhx includes: thyroid cancer, postsurgical hypothyroidism, T2DM, CKD stage 2, gout, hypertension, and hyperlipidemia, duodenal mass Current Nutrition (since admission): Patient is currently NPO. GI Tubes (Adults) Nasojejunal 12 Fr Nare;Right (Active) Placement Date/Time: 05/06/23 1335 Placed by: Al 6 GI GI Tube Type: Nasojejunal GI Tube Size: 12 FrLength (cm): 140 cm Tube Location: Nare;Right Nutrition Hx: Completed visit with patient and family today as part of face to face care. Patient and visitor (introduced as roommate, partner in crime) were seen today. Report that patient has nottolerated EN and has had to continuously decrease the TF rate. Has had nausea and emesis with tube feeding. Partner says that rate had to be decreased to 10 mL/hr, only getting 200 mL formula. Patient has been having 1 BM a day and it is loose. Ongoing N/V, weight loss. Will change EN to Peptamen 1.5. Diet education needs: n/a Food Allergies/Intolerances: NKFA Chewing/Swallowing Issues: not eating, just rinsing mouth with water OBJECTIVE Medications: allopurinoL aspirin atorvastatin [Held by provider] empagliflozin heparin (porcine) insulin aspart lansoprazole levothyroxine multivitamin/mineral- OLANZapine Pertinent Labs: Pertinent Labs: Last 3 results Lab Units 05/12/23 0544 05/11/23 2031 05/09/23 1556 SODIUM P mmol/L -- 137 -- SODIUM mmol/L 137 -- -- POTASSIUM mmol/L 4.4 -- 4.7 POTASSIUM P mmol/L -- 4.4 -- CHLORIDE P mmol/L -- 99 -- CHLORIDE mmol/L 99 -- -- BUN P mg/dL -- 20 -- BUN mg/dL 20 -- -- CREATININE mg/dL 1.16 1.10 1.02 PHOSPHORUS INORGANIC mg/dL 3.5 -- -- CALCIUM P mg/dL -- 8.7* -- CALCIUM mg/dL 8.3* -- 8.5* MAGNESIUM mg/dL 1.8 -- -- Edema: none noted I/Os: Net IO Since Admission: No IO data has been entered for this period [05/12/23 1525] Integumentary/Wounds: Lines/Drains/Airways None GI Function: LBM 05/11 Current nutrition orders: Dietary Orders (From admission, onward) Start Ordered 05/12/23 1316 Tube feeding with oral diet -Peptamen 1.5 (RTH); Feeding route: Nasojejunal; Feed options: Continuous; Starting rate (ml/hr): 10 mL/hr; Rate advancement (ml/hrs): 10 mL/hr every 12 hours; Continuous goal rate (ml/hr): 65 mL/hr; Daily goal volume (... (Adult Tube Feeding - Continuous with Oral Diet) Continuous Comments: Adjust per oven technician Question Answer Comment Tube Feeding Formula: Peptamen 1.5 (RTH) Feeding route: Nasojejunal Feed options: Continuous Starting rate (ml/hr): 10 mL/hr Rate advancement (ml/hrs): 10 mL/hr every 12 hours Continuous goal rate (ml/hr): 65 mL/hr Daily goal volume (mL): 250 05/12/23 1315 05/12/23 1108 No oral nutrition, tube feeding allowed except: Sips of clear liquids, Ice chips Dieteffective now Question Answer Comment except: Sips of clear liquids except: Ice chips 05/12/23 1107 Anthropometrics: Height: 175 cm Admission Weight: 82 kg (05/11/2023) Current Weight: 82 kg BMI (Calculated): 26.8 kg/m?? Weight change since admission: 0 kg Weight Change History: Weight loss, 4.5 kg, 5.2% in 1 month, 13.1 kg, 13.8% in less than 6 months Wt Readings from Last 15 Encounters: 05/12/23 82 kg 05/09/23 86.8 kg 04/30/23 86.5 kg 01/15/23 92.3 kg 07/18/22 94.4 kg 01/10/22 95.1 kg 07/13/21 103 kg 01/10/21 107 kg 07/26/20 107 kg 01/14/20 113 kg 10/23/19 112 kg 10/22/19 114 kg 10/12/19 113 kg 07/21/19 115 kg 01/29/19 114 kg Estimated Needs: Total Calorie Needs: 8147-7701 calories/day Method to Estimate Energy Needs: kcal/kg (25-30 kcal/kg) Weight Used for Equation Calculations: 82 kg Total Protein Needs: 98 - 123 grams/day (Method to Estimate Protein Needs (g/kg): 1.2 - 1.5 gm/kg) Weight Used to Calculate Protein Needs (Kg): 82 kg Nutrition Diagnosis: Inadequate oral intake related to current illness as evidenced by need for nutrition support Nutrition Diagnosis Reassessment: Ongoing Malnutrition Criteria: Average estimated Intake: Less than or equal to 50% for 5 or more days Weight Loss: >5% in 1 month Body Fat: Moderate Loss Muscle Mass: Severe Loss Nutritional Status: Severe Malnutrition Malnutrition in the Context of: Acute Illness or Injury ASSESSMENT / PLAN Patient meets ASPEN/AND criteria for Severe Malnutrition (05/12/2023 3:23 PM) See Nutrition Focused Physical Findings section for details. Nutrition Intervention: Interventions: Enteral nutrition, Vitamin and mineral supplements. Recommendations: Start enteral nutrition: Peptamen 1.5 with standard initiation and advancement to goal rate of 65 mL/hour for 24 hours/day. Multivitamin with minerals Provide 100 mg IV thiamine for 5 days due to refeeding risk Check serum potassium, magnesium, and phosphorus before initiation of nutrition. Recommend check potassium, magnesium, and phosphorus every 12 hours and replace electrolytes as needed. Tube feeding of Peptamen 1.5 at goal rate of 65 mL/hr over 24 hours will provide 1560 mL total volume, 2340 kcal, 106 grams protein, 293 grams carbohydrate, 1201 mL free water, and 156 % RDIs daily. Monitoring/Evaluation: Nutrition parameter to monitor: Diet Progression/NPO Status, Enteral, Skin Integrity, Pertinent Labs, Comparative Standards, Weight Status, Nausea/Vomiting/Diarrhea Desired Outcome: Tolerate enteral nutrition at goal Patient Goal(s): Tolerate enteral nutrition at goal rate Clinical Nutrition will continue to follow. For questions about patient's nutritional care please contact pager [phone] on weekdays 07:30-16:00 or [phone] on weekends/holidays. * Quiana Pineda, P.T. - 05/12/2023 1:16 PM CDT Physical Therapy Inpatient Evaluation/Treatment By co-signing this note, the provider certifies the therapy being provided to this patient is reasonable and necessary for the diagnosis or treatment of this patient. SUBJECTIVE Patient's Name: Hola Lau Referring/Attending Provider: Sandra Kennedy M.D. 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] Vomiting [R11.10] Reason for Referral: PT Evaluate and Treat PT eval and treat, acute general Onset Date: 05/11/23 Payor: MEDICARE / Plan: MEDICARE A AND [...] Tobacco Nausea And Vomiting Mass Duodenum Vomiting Past Surgical History: Procedure Laterality Date DECOMPRESSION SPINE - POSTERIOR LUMBAR Bilateral 10/23/2019 Procedure: L4-L5 laminectomy; Surgeon: Ricardo Saucedo M.D.; Location: [facility] ROMB OR EYE SURGERY 1985 cataracts HAND SURGERY 2019 tophi removal left thumb ROTATOR CUFF REPAIR Bilateral THYROID SURGERY 1992 two surgeries TONSILLECTOMY 1950 VASECTOMY 1978 History of Present Illness: Patient is a 72 year-old male with c/o N/V, recent diagnosis of intestinal lymphoma, was hospitalized at another hospital 04/29- 05/07/23 for similar issue. Prior Function/Occupational Profile Lives With: Significant other (Rhona) Receives Help From: Family (daughter) ADL Assistance: Independent IADL/Homemaking Assistance: Independent Driving: Independent Occupational Role: Retired Prior Mobility/Functional Transfers Level of [place]: Independent Gait Devices/Wheelchair Used: Cane Home Equipment Gait Devices Owned: Four-wheeled walker, Cane Other DME Equipment : Other (Comment) (adjustable bed) Bathroom Equipment: Grab bars in shower, Grab bars around toilet, Built-in shower seat Home Living Type of Home: House Home Layout: One level, Laundry main level, Able to live on main level with bedroom/bathroom Home Access: Level entry Bathroom Shower/Tub: Walk-in shower Walk-in shower location: Main floor Bathroom Toilet: Comfort height Bathroom Accessibility: Yes How Accessible: Accessible via walker Family/Caregiver Present: No Patient/Caregiver Goals: Stop N/V Patient Comments: Patient lying in bed, initially refused ambulation secondary to fatigue, but eventually agreed to walk down the phan. Handicapped accessible home. Precautions Other Precautions: [place] tube. Fall Risk (65 and older) Fall in the last 12 months: No Are you fearful of falling?: No OBJECTIVE Pain Assessment Pain Assessment: 0-10 Numeric Pain Intensity Scale Pain Score: 0 - No pain Cognition Arousal/Alertness: Appropriate responses to stimuli Attention: Addressed, no concerns noted Initiation: No difficulty with initiation Orientation: Oriented X4 Following Commands: Follows all commands/directions without difficulty Safety/Judgment: Addressed, no concerns noted General ROM / Strength Screening ROM - Upper Extremity Screen: Addressed, no concerns noted ROM - Lower Extremity Screen: Addressed, no concerns noted Strength - Upper Extremity Screen: Addressed, no concerns noted Strength - Lower Extremity Screen: Addressed, no concerns noted Bed Mobility - Supine to Sit # of Assistants: 0 Level of Assistance: Modified Independent Device: Head of bed elevated Cuing: Verbal Comments: No issues getting out of bed Bed Mobility - Sit to Supine # of Assistants: 0 Level of Assistance: Modified Independent Device: Head of bed elevated Cuing: Verbal Comments: No assist needed Sit to Stand Transfers # of Assistants: 0 Transfer Surface: Bed Transfer Equipment: Front wheeled walker, Gait belt Level of Assistance: Modified Independent Assessment/Delivery: Assessed Comments: No assist needed Stand to Sit Transfers # of Assistants: 0 Transfer Surface: Bed Transfer Equipment: Gait belt, Front wheeled walker Level of Assistance: Modified independent Assessment/Delivery: Assessed Comments: No assist needed Balance Static Sitting-Balance: Good (Maintains balance without support) Dynamic Sitting-Balance: Good (Maintains balance without support) Static Standing-Balance: Good (Maintains balance without support), Fair (Maintains balance with handheld/contact guard assistance) Dynamic Standing-Balance: Good (Maintains balance without support), Fair (Maintains balance with handheld/contact guard assistance) Balance Comments: Needs assistive device for standing and ambulating Gait Assessment/Training Distance (m): 20 m Surface: Even, Smooth/hard Device: Gait belt, Front-wheeled walker # of Assistants: 1 Level of Assistance: Supervision/Set-up, Contact guard assistance Quality/Pattern: Decreased heel strike, Decreased toe off Stability: good with front wheeled walker Assessment of Gait: Patient taking a slow pace and shows significant right foot drop (did not have his ankle foot orthosis with him), believe he would do very well if ankle foot orthosis were donned. Cueing Provided: Verbal, Tactile Response: tolerated well, would be safer with right ankle foot orthosis. Activity Tolerance Endurance: Tolerates 10-20 minutes of activity Sitting Tolerance: NT Standing Tolerance: <5 with front wheeled walker The patient/family educated on safe transfer techniques with functional mobility/activity. The following coordination of care occurred today: Co-treatment with: Occupational Therapy Discussed patient's care with OT Patient was left in bed at end of session with call light in reach, all needs met and questions answered. Outcome Measures [facility] Inpatient Short Form: -[facility] Basic Mobility (V.2) How much help [...] None 5. To walk in hospital room?: None 6. Climbing 3-5 steps with a railing?: A Little -[facility] Basic Mobility (V.2) Raw Score: 23 -[facility] Basic Mobility (V.2) Standardized Score: 50.88 Interpretation: Clinicians answer the -[facility] Inpatient Short Form based on observed patient activity and/or clinical judgement (ie. patient can be scored without physically performing each activity) Based on scoring guidelines using the raw score value: Those going to home had an average score at or above 18 Those going to facility had an average score at or below 17 Assessment Discharge Therapy Needs - PT: No further skilled therapy Skilled therapy can include physical therapy provided by home health, outpatient clinic, or a post-acute facility. The location of these services is determined by the patient's care team in partnership with patient/family. Barriers to Discharge Home: Fall risk, None Barriers to Discharge Comments: Suggest R ankle foot orthosis with ambulation Clinical Impression of today's session: Patient is a 72-year-old male who was admitted with nausea and vomiting. Patient has a mass in his duodenum which was previously diagnosed as intestinal lymphoma. Patient has NJ tube and they are deciding on how to manage his nausea. Currently, patient presents with impairments including right foot drop, but has his own AFO resulting in the following functional deficits: Patient needs cane and right AFO for gait which he has at home already. No further skilled therapy needed. Will discharge PT orders. Rehab potential: Mr. Lau has Good potential to achieve established physical therapy goals within the time frame outlined below. Progress: Evaluation only, no skilled therapy treatment indicated Tiered PT Evaluation Codes: Comorbid Conditions: Cancer, Diabetes, Other (Comment) (right drop foot, lumbar surgery (after noticing right drop foot), L45 laminectomy 2020.) Personal Factors: Age, Balance impairment, Needs assistive device Examination elements: 3 Clinical Presentation: Evolving Clinical Decision Making: Low complexity clinical decision making Functional Goals: PT Inpatient Goals PT Goal #1: Assess safety to return home. PT Goal #1 Status: Achieved Plan Patient agrees with the plan of care and goals. Treatment Plan: Plan: Discontinue PT PT Frequency: One-time visit PT Inpatient Duration : Until goals are met or hospital discharge Requires Inpatient Follow-Up: No PT Plan Comments: Patient is functional with mobility, discharge from PT. Treatment interventions may include: Billing: Time Spent with Patient Evaluations PT Eval - Low Complexity: 18 min Time Tracking Total Treatment Time (min): 18 min Tara Pineda P.T. * Beata Prescott M.S., O.T. - 05/12/2023 10:07 AM CDT Occupational Therapy Acute Hospital Inpatient Evaluation/Treatment/Discharge By co-signing this note, the provider certifies the therapy being provided to this patient is reasonable and necessary for the diagnosis or treatment of this patient. SUBJECTIVE Patient's Name: Hola Lau Referring/Attending Provider: Sandra Kennedy M.D. 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] Vomiting [R11.10] Reason for Referral: Occupational Therapy Evaluation and Treatment OT eval and marlon, acute general Onset Date: 05/11/23 Payor: MEDICARE / Plan: MEDICARE A AND [...] Tobacco Nausea And Vomiting Mass Duodenum Vomiting Past Surgical History: Procedure Laterality Date DECOMPRESSION SPINE - POSTERIOR LUMBAR Bilateral 10/23/2019 Procedure: L4-L5 laminectomy; Surgeon: Ricardo Saucedo M.D.; Location: [facility] ROMB OR EYE SURGERY 1985 cataracts HAND SURGERY 2019 tophi removal left thumb ROTATOR CUFF REPAIR Bilateral THYROID SURGERY 1992 two surgeries TONSILLECTOMY 1950 VASECTOMY 1978 History of Present Illness:Patient is a 72 year-old male with c/o N/V, recent diagnosis of intestinal lymphoma, was hospitalized at another hospital 04/29- 05/07/23 for similar issue. Occupational Profile: Prior Function/Occupational Profile Lives With: Significant other (Rhona) Receives Help From: Family (daughter) ADL Assistance: Modified independent IADL/Homemaking Assistance: Independent Driving: Independent Occupational Role: Retired Prior Mobility/Functional Transfers Level of [place]: Independent Gait Devices/Wheelchair Used: Cane Home Living Type of Home: House Home Layout: One level, Laundry main level, Able to live on main level with bedroom/bathroom Home Access: Level entry Bathroom Shower/Tub: Walk-in shower Walk-in shower location: Main floor Bathroom Toilet: Comfort height Bathroom Accessibility: Yes How Accessible: Accessible via walker Home Equipment Gait Devices Owned: Four-wheeled walker, Cane Other DME Equipment : Other (Comment) (adjustable bed) Bathroom Equipment: Grab bars in shower, Grab bars around toilet, Built-in shower seat, Hand-held shower head Family/Caregiver Present: No Patient/Caregiver Goals: Stop nausea and vomiting Patient Comments: Patient lying in bed upon therapy arrival. He reported feeling very tired and intially declined therapy, but was agreeble to participate after explanation of therapy in hospital setting. No pain reported Fall Risk (65 and older) Fall in the last 12 months: No Are you fearful of falling?: No Precautions Other Precautions: [place] tube. OBJECTIVE Vitals monitored throughout session; within normal ranges. Activity Tolerance Endurance: Tolerates 10-20 minutes of activity Gross Hand Function Right Hand Gross Grasp: Functional Left Hand Gross Grasp: Functional Right Hand Coordination: Functional Left Hand Coordination: Functional Balance Static Sitting-Balance: Good (Maintains balance without support) Dynamic Sitting-Balance: Good (Maintains balance without support) Static Standing-Balance: Good (Maintains balance without support), Fair (Maintains balance with handheld/contact guard assistance) Dynamic Standing-Balance: Good (Maintains balance without support), Fair (Maintains balance with handheld/contact guard assistance) Balance Comments: front wheeled walker - no ankle foot orthosis present at hospital General ROM / Strength Screening ROM - Upper Extremity Screen: Addressed, no concerns noted Strength - Upper Extremity Screen: Addressed, no concerns noted Cognition Cognitive assessment method: Therapist observations Arousal/Alertness: Appropriate responses to stimuli Attention: Addressed, no concerns noted Orientation: Oriented X4 Following Commands: Follows all commands/directions without difficulty Safety/Judgment: Addressed, no concerns noted Cognition Comments: No overt cognitive deficits observed or reported during session. Bed Mobility - Supine to Sit # of Assistants: 0 Level of Assistance: Modified Independent Device: Head of bed elevated Cuing: Verbal Comments: No cues/assist required Bed Mobility - Sit to Supine # of Assistants: 0 Level of Assistance: Modified Independent Device: Head of bed elevated Cuing: Verbal Comments: No cues/assist required Sit to Stand Transfers # of Assistants: 0 Transfer Surface: Bed Transfer Equipment: Front wheeled walker, Gait belt Level of Assistance: Modified Independent Assessment/Delivery: Assessed Comments: No loss of balance or assist required for safety Stand to Sit Transfers # of Assistants: 0 Transfer Surface: Bed Transfer Equipment: Gait belt, Front wheeled walker Level of Assistance: Modified independent Assessment/Delivery: Assessed Comments: No assist needed LE Dressing LE Dressing Location: Seated on edge of bed LE Dressing Delivery: Assessed, Facilitated, Instructed LE Dressing Items Included: Socks LE Dressing Level of Assistance: Modified independent LE Dressing Comments: Instructed on figure 4 to don/doff socks - patient demonstrated without assist Adaptive Interventions Activity Modification/Work Simplification: Patient appears to have all necessary adaptive equipmentfor safety and independence with self cares. Adaptive Intervention/Education: Patient was educated on activity modification and how to apply those techniques to activities of daily living., Patient was educated on energy conservation and how toapply those techniques to activities of daily living. ADL Comments ADL Comments: Facilitated functional mobility/transfers using front wheeled walker - no loss of balance during session. Education provided today: Role of acute occupational therapy Team Communication: Discussed patient's care with PT Co-treatment with: Physical Therapy Co-Evaluation and treatment session with PT in order to optimize patient care. The patient benefitsfrom having two skilled therapists present in order to safely progress independence with activitiesof daily living and functional mobility. OT and PT addressed different aspects of mobility during treatment session. Outcome Measures [facility] Inpatient Short Form: Putting on and taking off regular lower body clothing?: None Putting on and taking off regular upper body clothing?: None Taking care of personal grooming such as brushing teeth?: None Bathing (including washing, rinsing, drying)?: None Toileting, which includes using toilet, bedpan, or urinal?: None Eating meals?: None Daily Activities Raw Score (max 24): 24 Daily Activities Standardized Score: 57.54 Interpretation: Clinicians answer the [facility] Inpatient Short Form based on observed [...] Needs - OT: No further skilled therapy Skilled therapy can include occupational therapy provided by home health, outpatient clinic, or a post-acute facility. The location of these services is determined by the patient's care team in partnership with patient/family. Level of Care Needed - OT: Other (Comment) (prn assist with ADLs and IADLs) Barriers to Discharge Home: Fall risk, None Barriers to Discharge Comments: Suggest R ankle foot orthosis with ambulation Clinical Impression: Prior to hospitalization patient was completing daily activities with modified independence/independence. Today, he completed lower body dressing and functional transfers using front wheeled walker without any physical assist or loss of balance. The patient's current level of function appears to beat or near their baseline. He denies any homegoing OT concerns. At this time, OT anticipates that the patient will be able to return home with PRN supervision/assistance. No further acute care OT services are indicated at this time. OT to sign off. Rehab potential: Mr. Lau has good potential to achieve established occupational therapy goals within the time frame outlined below. Tiered OT Evaluation Codes: Comorbid Conditions: Cancer, Diabetes, Other (Comment) (right drop foot, lumbar surgery (after noticing right drop foot), L45 laminectomy 2019.) Personal Factors: Age, Balance impairment, Needs assistive device Occupational Profile and History review: Expanded Performance Deficits: 1 - 3 performance deficits Evaluation Complexity: Low Functional Goals: OT Goal #1: Patient will complete lower body dressing with modified independence to decrease caregiver assist upon hospital discharge. OT Goal #1 Status: Achieved OT Goal #2: Patient will complete toilet transfers with modified independence to decrease caregiverassist upon discharge from hospital OT Goal #2 Status: Achieved Progress: All OT goals achieved Plan Occupational Therapy Attestation Statement: Patient agrees with the plan of care and goals. OT Frequency: OT Frequency: One-time visit OT Inpatient Duration : Until goals are met or hospital discharge Requires Inpatient OT Follow-Up: No Plan: Discontinue OT OT Plan Comments: No further skilled OT indicated at this time - D/C OT Treatment interventions may include: Treatment Interventions: Self-care/home management, Therapeutic functional activity, Cognitive skills training Billing: Time Spent with Patient Evaluations OT Eval - Low Complexity : 18 min Time Tracking Total Treatment Time (min): 18 min Jeaneth Prescott M.S., O.T. documented in this encounter Nursing Notes * Sol Gibbons, R.N. - 05/23/2023 1:14 PM CDT Problem: PAIN - ADULT Goal: PT VERBALIZES/DEMONSTRATES [...] remain intact Outcome: Adequate for Discharge Problem: SAFETY ADULT Goal: Maintain a safe environment Outcome: Adequate for Discharge Problem: DISCHARGE PLANNING [...] maintained or improved Outcome: Adequate for Discharge Problem: SAFETY ADULT - RISK FOR FALL AND OR FALL INJURY Goal: Patient remains free from fall/fall injury Outcome: Adequate for Discharge Problem: ALTERED NUTRIENT INTAKE - ADULT Goal: Nutrient intake appropriate for improving, restoring or maintaining nutritional needs Outcome: Adequate for Discharge Problem: SWALLOWING Goal: Prevention of aspiration Outcome: Adequate for Discharge Shift Goals: Clinical Goals for the Shift: VSS, Discharge Identify possible barriers to meeting goals/advancing plan of care: none End of Shift Summary: pt remains vitally stable and denies pain. Pt did not eat breakfast this morning d/t multiple episodes of diarrhea over night. Pt education and discharge paperwork were gone over with pt and family in the room; at this time they have no remaining questions. They will reach outto the clinic and service team via the [place] [facility] to inquire about the need for certain appointments that were made but no longer need. * Molly Jarquin M.B.BJohannaSJohanna, M.D. 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 Primary dairy nutritionist Dr. Castro/Dr. Flores. We discussed a systemic approach to therapy using [id number]-R-[id number]. Given the current clinical setting and information, this therapy would be pursued in stages, starting with rituximab and steroids until final pathology is reported and also to avoid aggressive tumor response that might lead to bowel perforation. Patient will receive methylprednisone 1g X 3 days, started 05/16/23. Day1 rituximab will be 05/18/2023. We reviewed this systemic therapy, including the rationale, schedule, need for regular follow up, and that a clinically meaningful and/or durable response was not guaranteed. We discussed some possible adverse effects, including but not limited to nausea, vomiting, diarrhea, constipation, fatigue, neuropathy, cytopenias, bleeding, thrombosis, infections, mucositis, and changes in hair/skin/nails. We also discussed that there may be adverse effects on various organ systems, including but not limited to the bone marrow. We also discussed that this therapy and/or relatedadverse events could lead to , and that it is impossible to foresee every potential sequelae. Printed material was provided for further review. After discussion, the patient elected to proceed with systemic therapy. * Zina Ruano R.N. - 05/17/2023 5:23 AM CDT Problem: PAIN - ADULT Goal: PT VERBALIZES/DEMONSTRATES [...] Patient discharge needs identified Outcome: Progressing Problem: POTENTIAL OR ACTUAL PRESSURE INJURY-ADULT Goal: Manage sensory Perception deficits to maintain and/or improve skin integrity Outcome: Progressing Goal: Maintain optimal skin moisture to ensure or improve skin integrity Outcome: Progressing Goal: Minimize friction [...] integrity is maintained or improved Outcome: Progressing Problem: SAFETY ADULT - RISK FOR FALL AND OR FALL INJURY Goal: Patient remains free from fall/fall injury Outcome: Progressing Problem: SWALLOWING Goal: Prevention of aspiration Outcome: Progressing Shift Goals: Clinical Goals for the Shift: Patient will report adequate sleep overnight. Identify possible barriers to meeting goals/advancing plan of care: N/A End of Shift Summary: Patient did not sleep well over night; there were many interruptions over night (VS, tube feeding). * Arvin Eubanks R.N. - 05/16/2023 6:22 AM CDT Shift Goals: Clinical Goals for the Shift: Patient will remain free of nause during this shift. Identify possible barriers to meeting goals/advancing plan of care: No further nausea End of Shift Summary: No complaints of nausea or other initially first half of this shift tolerating tube feed well. Tube feed on hold for 30 minutes after evening medication per patient request. Later verbally noted he did not have any nausea, but was apprehensive about the potential of it. Patient verbally noting second half of the shift now that he was having nausea the first half of the shift. No vomiting noted but intermittent sputum occurring during this time. Tube feeding stopped at 0300/0600, Intermittent suction turned on 9 (minimal amounts both times) for a period of 15 minutes and tube feeding turned back on per patient request. Self encouraging to try to keep tube feeding running with minimal down time. documented in this encounter ED Notes * Truman Baum M.D. - 05/11/2023 10:39 PM CDT I have personally seen and examined this patient. I have fully participated in the care of this patient. I have reviewed all clinical information including history, physical exam, orders, and plan. Albino with the note of the resident. ED Course as of 05/12/23 0049 Sun May 12, 2023 0048 The patient has already reduced the tube feed rate as low as it can go, they have tried spacing them out, he continues to have regurgitation of his feeds. CT imaging does not show something I can intervened upon with medications. He has distention of the stomach likely because the duodenal mass is restricting outflow I suspect, and the nasal jejunostomy tube is appropriate. I do not know whyfeeds that are being empty distal to the mass are causing regurgitation. The patient feels uncomfortable going home because of the lack of ability to have oral nutrition or 2 based nutrition rather, so we will bring the patient in the hospital help explore alternatives to his nutritional needs. Final Diagnoses: as of 05/12/2348 Malignant Neoplasm Of Duodenum (HCC) Vomiting The patient is a 72-year-old man with a history of thyroid cancer, diabetes, chronic kidney diseaseand a recent diagnosis of duodenal tumor returns to the emergency department for evaluation of vomiting after placement of a nasal jejunostomy tube for nutritional purposes. The patient is afebrile, has benign vital signs, no peritonitis. It is unclear what is causing the vomiting, it could be simply tumor related, it could be medication effect, it could be mechanical related to the tube placement, it could be an obstruction, other infection or abscess. We will get labs including hepatobiliary and pancreatic enzymes, we will get a CT to understand structurally what is going on. Disposition remains unclear at this time. Truman Baum M.D. 05/11/23 224 * Shoaib Rojas M.D. - 05/11/2023 9:37 PM CDT CHIEF COMPLAINT/REASON FOR VISIT Vomiting HISTORY OF PRESENT ILLNESS Hola Lau is a 72 y.o. male with history of thyroid cancer on monoclonal antibodies, kph-[id number] diabetes, stage 2 CKD, and recent diagnosis of duodenal tumor who returns to the emergency department for evaluation of vomiting. The patient was recently hospitalized from April 29 to May 07, during which the mass was biopsied. The mass is 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, and the patient had a NJ tube placed for nutrition purposes. After discharge from the hospital 2 days ago, the patient has been experiencing difficulties with feeding. The patient is able to tolerate fluids through the NJ tube, but has not been able to tolerate any feeding. Despite family members trying to initiate feeding slowly, and in small amounts, the patient develops vomiting shortly after every feed. Some the patient also describes some bloody, brown material in his emesis, concerning for blood. The patient has not thrown up any materials that resemble coffee-grounds. Due to difficulties with feeding, the patient estimates that he has lost approximately 10 lb. The patient reports some pain in his neck from the NG tube, but otherwise feels well. OBJECTIVE Initial Vitals Temperature 05/11/231916 36.7 ??C Pulse Rate 05/11/231916 94 Heart Rate -- Resp Rate 05/11/231916 18 Blood Pressure 05/11/231916 (!) 113/95 SpO2 05/11/231916 97 % Pain Score 05/11/23 2223 3 PHYSICAL EXAMINATION Constitutional: Nursing note and vitals reviewed. HENT: Head: Normocephalic and atraumatic. NJ-tube noted. Cardiovascular: Normal rate. Pulmonary/Chest: No respiratory distress. Abdominal: Soft. Neurological: Alert and oriented to person, place, and time. Skin: Skin is warm and dry. Psychiatric: He has a normal mood and affect. Behavior is normal. DIAGNOSTIC STUDIES LABORATORY RESULTS: Abnormal Labs Reviewed CBC WITH DIFFERENTIAL, B - Abnormal; Notable for the following components: Result Value Hemoglobin 10.5 (*) Hematocrit 34.9 (*) RBC Distrib Width 19.3 (*) Monocytes 0.84 (*) Basophils 0.11 (*) All other components within normal limits BASIC METABOLIC PANEL, S/P - Abnormal; Notable for the following components: Calcium, Total, P 8.7 (*) All other components within normal limits HEPATIC FUNCTION PANEL, S - Abnormal; Notable for the following components: Protein, Total, S 5.7 (*) All other components within normal limits IMAGING STUDIES: CT Abdomen Pelvis with IV Contrast Preliminary Result 1. FDG avid mass in the 3rd aspect of the duodenum consistent with malignancy. 2. Interval placement of enteric tube with persistent distention of the stomach. 3. Unchanged mesenteric, portacaval, and retroperitoneal lymphadenopathy. 4. Pulmonary nodule in the left lung base measuring up to 8 mm. Chronic fibrotic lung disease. DX Abdomen Portable Anterior Posterior 1 View Preliminary Result Comparison abdominal radiograph 05/06/2023. Interval advancement of the enteric tube with tip now extending over the proximal jejunum. Vascular stent in the left upper quadrant. MEDICAL DECISION MAKING 72-year-old male who recently underwent NJ tube placement due to a duodenal mass presents to the emergency department due to inability to tolerate feeds, administered through the NJ tube. The patienthas been able to tolerate fluids without any issue, and appears to be well hydrated on exam. The etiology of the patient's vomiting is unclear. As the patient has been able to tolerate fluids through the tube, it appears that the tube itself is patent. There is concern for possible displacement of the tube, which has happened in the past. Abdominal x-ray has been ordered, to better evaluate for this. It is also possible that the patient is developing complications unrelated to the NJ tube itself. Differentials considered include small-bowel obstruction, colitis, GI bleeding, bowel irritation fromthe NJ tube, and proctocolitis. The patient may also be developing adverse reaction to the type of feed administered at home. --- The patient has been signed out at shift change. The patient has been stable in the emergency department, and x-ray imaging of the abdomen has been obtained to better evaluate the placement of the tube. Labs obtained in triage have been negative for any acute electrolyte disturbance. The patient's protein level of 5.7 is only borderline decreased, and is reassuring against malnutrition. There is no evidence of any significant GI bleeding at this time. The patient's BUN is within normal limits, and the patient's hemoglobin of 10.5 is actually increased from previous values. Final disposition pending imaging results. CLINICAL IMPRESSION ED Course as of 05/12/2347 Sat May 11, 2023 2330 Patient has been signed out at shift change. Dispo pending imaging studies of the NJ-tube. Final Diagnoses: as of 05/12/2347 Malignant Neoplasm Of Duodenum (HCC) Vomiting Dr. Shoaib Rojas (EM PGY1) Phone: [phone] P Shoaib Rojas M.D. Resident 05/12/2349 * Beata Dueñas R.N. - 05/11/2023 7:17 PM CDT Patient presents to ED with complaints of continued vomiting from his tube feedings, and diarrhea. Patient states that he was discharged from the hospital on the night of 05/06. Tube was placed due toa large tumor in his duodenum causing him to be unable to tolerate oral intake on his own. States that he has lost approximately 10 pounds since his discharge from the hospital. Beata Dueñas R.N. 05/11/231919 documented in this encounter Miscellaneous Notes * Hospital Course - Miguel Fishman M.D., Ph.D. - 05/12/2023 4:35 AM CDT Mr. Lau is a 72 year old male hospitalized for evaluation and management of inability to tolerate tube feeds in the setting of newly diagnosed duodenal mass, likely B cell lymphoma. His medical comorbidities include thyroid cancer, postsurgical hypothyroidism, T2DM, CKD stage 2, gout, hypertension, and hyperlipidemia. Prior to Admission: Of note, he was recently hospitalized on 04/29 to 05/07 for nausea/vomiting and abdominal pain and was found to have a partially obstructive duodenal mass, highly suspicious for B cell lymphoma (biopsywas indeterminate due to crush artifact and degenerative changes). He had an NJ tube placed with difficulty tolerating feeds due to nausea and vomiting but was eventually able to tolerate his feeds and discharged home in stable condition. He was then evaluated in the outpatient setting by Drs. Castro and Mark. ED Course: The patient had difficulty tolerating feeds at home and began to experience emesis after feeds two days after discharge regardless of the rate or amount of feeds. He presented to the ED where CT imaging reconfirmed an FDG avid mass in the 3rd aspect of the duodenum and showed a properly placed enteric tube with the tip in the distal jejunum, as well as gastric distention and mild inflammatory stranding involving the duodenum. GI-B Course (05/12-05/16) The patient arrived to the floor in stable condition. Nutrition was consulted and recommended Peptamen 1.5 with a goal of 65 mL/hr with some difficulty initially tolerating his feeds. The patient hadhis NJ tube replaced with a Dobbhoff with a gastric aspiration port and jejunal extension with 2 L of bilious fluid removed on placement. He has had improved tolerance of tube feeds with gastric aspiration as needed and is currently at 40 mL/hr of feeds. The patient was monitored for refeeding withelectrolytes grossly stable. He was started on IV thiamine given concern for repletion. He had an ROMEO on admission that has improved with fluid resuscitation. Hematology was consulted regarding switching outpatient workup to inpatient for duodenal mass. EGD with duodenal biopsy performed on 05/[address] guided mesenteric lymph node biopsyperformed with preliminary results suspicious for lymphoma. Bone marrow biopsy with normal immunophenotyping results as well as no morphologic or immunophenotypic features of involvement by lymphoma.EF 75%. Hematology feels that there is enough information to begin lymphoma directed treatment so the patient will be tested for COVID, started on 1 g IV methylprednisolone, and transferred to Hematology 3. Hematology 3 (05/16 - 05/23) The patient received 4 total doses of IV methylprednisolone. 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 Patient was started on Rituximab on 05/18. On 05/20, his symptoms of nausea, vomiting had improved to the point that oral diet was trialed andsuccessful. On 05/21, NJ tube was removed and the remainder of chemotherapy was started (Romaine-R-CHP). He received appropriate prophylactic medications including pentamidine (05/20), acyclovir, lansoprazole, allopurinol. He tolerated chemotherapy well and was discharged on 05/23 in stable condition. Further lymphoma treatment will be arranged to occur outpatient. MEDICATION CHANGES THIS ADMISSION Medications stopped: Lansoprazole Medications changed: Please take all medications that were previously prescribed as via NG tube by mouth Medications added: Acyclovir 400 mg twice daily Inhaled Pentamidine once per month (last dose 05/20) Patient to Follow-Up GCSF injection today at [facility] 8 desk 8G Follow-up visit with laboratory testing, clinic visit with Dr. Goldberg, and likely second round of chemotherapy on 06/10 Possible GCSF injection on 06/11, but this will be coordinated by Dr. Goldberg documented in this encounter Plan of Treatment Upcoming Encounters Date Type Department Care Team (Latest Contact Info) Description 10/06/2023 9:04 AM FELT HAT STEAMER - 10/06/2023 11:24 AM F[employer]T H[employer] STEAMER Surgery [facility] MAIN OR [address] [place] [phone] Cameron Saenz M.D. [address] [place] [phone] ABDOMINAL EXPLORATION, REMOVAL ABTHERA, POSSBLE BOWEL RESECTION, PROCEED INDICATED 10/11/2023 7:00 AM F[employer]T HAT STEAMER Appointment Department of Laboratory Medicine and Pathology, [facility] in [place], [place] [address] [place] [phone] Arti Epstein M.B.B.S. [address] [place] [phone] 10/11/2023 9:00 AM F[employer] H[employer] STE[employer]ER Office Visit Division of Hematology in [address] [phone] Arti Epstein M.B.B.S. [address] [place] [phone] 10/11/2023 10:00 AM F[employer] H[employer] STE[employer]ER Infusion Department of Oncology in [address] [phone] Bev Gifford APRN, C.N.P., M.S.N. [address] [place] [phone] 11/19/2023 10:00 AM CDT Office Visit Division of Endocrinology in [place], [place] [address] [place] [phone] West Mendoza APRN, C.N.P., M.S. [address] [place] [phone] 11/19/2023 2:30 PM CDT Comprehensive Visit Division of Hepatobiliary and Pancreas Surgery in [place], [place] [address] [place] [phone] Wesley Hamilton M.D. [address] [place] [phone] Scheduled Orders Name Type Priority Associated Diagnoses Orde r Schedule Bedside anesthesia scheduling Procedures Routine Once for 1 Occur rences starting 05/14/2023 until 05/14/2023 Scheduled Procedures Name Priority Associated Diagnoses Date/Ti me LAPAROTOMY - ABDOMINAL WASHOUT Ischemia Intestinal With Stricture (HCC) 10/06/2023 9:04 AM FELT HAT STEAMER Scheduled Referrals Name Type Priority Associated Diagnoses Order Schedule Hematology office visit (clinic) [place]; Lymphoma; General Outpatient Referral Routine Lymphoma Non Hodgkins (HCC) Expected: 06/10/2023, Expires: 06/10/2024 documented as of this encounter Procedures Procedure Name Priority Date/Time Associated Diagnosis Comments GLUCOSE POCT, B Routine 05/23/2023 8:43 AM CDT URIC ACID, S/P Routine 05/23/2023 5:06 AM CDT PHOSPHORUS (INORGANIC), S Routine 05/23/2023 5:06 AM CDT BASIC METABOLIC PANEL, S/P Routine 05/23/2023 5:06 AM CDT GLUCOSE POCT, B Routine 05/22/2023 8:11 PM CDT GLUCOSE POCT, B Routine 05/22/2023 4:40 PM CDT URIC ACID, S/P Timed 05/22/2023 3:06 PM CDT PHOSPHORUS (INORGANIC), S Timed 05/22/2023 3:06 PM CDT LACTATE DEHYDROGENASE (LD), S Timed 05/22/2023 3:06 PM CDT BASIC METABOLIC PANEL, S/P Timed 05/22/2023 3:06 PM CDT GLUCOSE POCT, B Routine 05/22/2023 11:00 AM CDT ADULT OXYGEN THERAPY Routine 05/22/2023 8:01 AM CDT ADULT OXYGEN THERAPY Routine 05/22/2023 8:01 AM CDT GLUCOSE POCT, B Routine 05/22/2023 7:24 AM CDT CBC WITH DIFFERENTIAL, B Routine 05/22/2023 12:15 AM CDT URIC ACID, S/P Timed 05/22/2023 12:15 AM CDT PHOSPHORUS (INORGANIC), S Timed 05/22/2023 12:15 AM CDT MAGNESIUM, S Routine 05/22/2023 12:15 AM CDT LACTATE DEHYDROGENASE (LD), S Timed 05/22/2023 12:15 AM CDT BASIC METABOLIC PANEL, S/P Timed 05/22/2023 12:15 AM CDT GLUCOSE POCT, B Routine 05/21/2023 8:26 PM CDT ADULT OXYGEN THERAPY Routine 05/21/2023 8:01 PM CDT ADULT OXYGEN THERAPY Routine 05/21/2023 8:01 PM CDT URIC ACID, S/P Timed 05/21/2023 6:55 PM CDT PHOSPHORUS (INORGANIC), S Timed 05/21/2023 6:55 PM CDT LACTATE DEHYDROGENASE (LD), S Timed 05/21/2023 6:55 PM CDT BASIC METABOLIC PANEL, S/P Timed 05/21/2023 6:55 PM CDT GLUCOSE POCT, B Routine 05/21/2023 4:42 PM CDT GLUCOSE POCT, B Routine 05/21/2023 12:01 PM CDT ADULT OXYGEN THERAPY Routine 05/21/2023 8:01 AM CDT ADULT OXYGEN THERAPY Routine 05/21/2023 8:01 AM CDT GLUCOSE POCT, B Routine 05/21/2023 7:14 AM CDT CBC WITH DIFFERENTIAL, B Routine 05/21/2023 4:44 AM CDT 25-HYDROXYVITAMIN D2 AND D3, S Routine 05/21/2023 4:43 AM CDT PHOSPHORUS (INORGANIC), S Routine 05/21/2023 4:43 AM CDT MAGNESIUM, S Routine 05/21/2023 4:43 AM CDT BASIC METABOLIC PANEL, S/P Routine 05/21/2023 4:43 AM CDT CYSTATIN C WITH EGFR Routine 05/21/2023 4:39 AM CDT GLUCOSE POCT, B Routine 05/20/2023 8:57 PM CDT ADULT OXYGEN THERAPY Routine 05/20/2023 8:01 PM CDT ADULT OXYGEN THERAPY Routine 05/20/2023 8:01 PM CDT GLUCOSE POCT, B Routine 05/20/2023 5:00 PM CDT GLUCOSE POCT, B Routine 05/20/2023 12:03 PM CDT ADULT OXYGEN THERAPY Routine 05/20/2023 8:01 AM CDT ADULT OXYGEN THERAPY Routine 05/20/2023 8:01 AM CDT GLUCOSE POCT, B Routine 05/20/2023 7:40 AM CDT CBC WITH DIFFERENTIAL, B Routine 05/20/2023 12:09 AM CDT URIC ACID, S/P Routine 05/20/2023 12:09 AM CDT PHOSPHORUS (INORGANIC), S Routine 05/20/2023 12:09 AM CDT LACTATE DEHYDROGENASE (LD), S Routine 05/20/2023 12:09 AM CDT BASIC METABOLIC PANEL, S/P Routine 05/20/2023 12:09 AM CDT CYSTATIN C WITH EGFR Routine 05/20/2023 12:04 AM CDT GLUCOSE POCT, B Routine 05/19/2023 8:56 PM CDT ADULT OXYGEN THERAPY Routine 05/19/2023 8:00 PM CDT ADULT OXYGEN THERAPY Routine 05/19/2023 8:00 PM CDT GLUCOSE POCT, B Routine 05/19/2023 5:29 PM CDT GLUCOSE POCT, B Routine 05/19/2023 12:06 PM CDT ADULT OXYGEN THERAPY Routine 05/19/2023 8:00 AM CDT ADULT OXYGEN THERAPY Routine 05/19/2023 8:00 AM CDT GLUCOSE POCT, B Routine 05/19/2023 7:39 AM CDT CYSTATIN C WITH EGFR Routine 05/19/2023 12:03 AM CDT CBC WITH DIFFERENTIAL, B Routine 05/19/2023 12:03 AM CDT URIC ACID, S/P Routine 05/19/2023 12:03 AM CDT PHOSPHORUS (INORGANIC), S Routine 05/19/2023 12:03 AM CDT LACTATE DEHYDROGENASE (LD), S Routine 05/19/2023 12:03 AM CDT BASIC METABOLIC PANEL, S/P Routine 05/19/2023 12:03 AM CDT GLUCOSE POCT, B Routine 05/18/2023 8:48 PM CDT ADULT OXYGEN THERAPY Routine 05/18/2023 8:00 PM CDT ADULT OXYGEN THERAPY Routine 05/18/2023 8:00 PM CDT GLUCOSE POCT, B Routine 05/18/2023 5:30 PM CDT DIPSTICK, U Routine 05/18/2023 4:09 PM CDT MICROSCOPIC AUTOMATED Routine 05/18/2023 4:09 PM CDT PH, U Routine 05/18/2023 4:09 PM CDT OSMOLALITY, U Routine 05/18/2023 4:09 PM CDT URINALYSIS WITH MICROSCOPIC Routine 05/18/2023 4:09 PM CDT GLUCOSE POCT, B Routine 05/18/2023 12:36 PM CDT GLUCOSE POCT, B Routine 05/18/2023 9:37 AM CDT ADULT OXYGEN THERAPY Routine 05/18/2023 8:00 AM CDT ADULT OXYGEN THERAPY Routine 05/18/2023 8:00 AM CDT CBC NO CALL BACK, REFLEX T/S Routine 05/18/2023 6:04 AM CDT CYSTATIN C WITH EGFR Routine 05/18/2023 6:04 AM CDT VCLPSAY-3-DOIOECYUN DEHYDROGENASE (G-6-PD), LORI, ERYTHROCYTES, B Routine 05/18/2023 6:04 AM CDT URIC ACID, S/P Routine 05/18/2023 6:04 AM CDT POTASSIUM, S/P Routine 05/18/2023 6:04 AM CDT PHOSPHORUS (INORGANIC), S Routine 05/18/2023 6:04 AM CDT MAGNESIUM, S Routine 05/18/2023 6:04 AM CDT LACTATE DEHYDROGENASE (LD), S Routine 05/18/2023 6:04 AM CDT GLUCOSE POCT, B Routine 05/17/2023 10:34 PM CDT ADULT OXYGEN THERAPY Routine 05/17/2023 8:01 PM CDT ADULT OXYGEN THERAPY Routine 05/17/2023 8:01 PM CDT GLUCOSE POCT, B Routine 05/17/2023 4:44 PM CDT GLUCOSE POCT, B Routine 05/17/2023 12:51 PM CDT GLUCOSE POCT, B Routine 05/17/2023 9:06 AM CDT ADULT OXYGEN THERAPY Routine 05/17/2023 8:00 AM CDT ADULT OXYGEN THERAPY Routine 05/17/2023 8:00 AM CDT DX ABDOMEN PORTABLE ANTERIOR POSTERIOR 1 VIEW RAD - Routine (most inpatients and all outpatients) 05/17/2023 7:51 AM CDT LACTATE DEHYDROGENASE (LD), S STAT 05/17/2023 7:29 AM CDT CYSTATIN C WITH EGFR Routine 05/17/2023 5:59 AM CDT CBC WITH DIFFERENTIAL, B Routine 05/17/2023 5:59 AM CDT URIC ACID, S/P Routine 05/17/2023 5:59 AM CDT PHOSPHORUS (INORGANIC), S Routine 05/17/2023 5:59 AM CDT MAGNESIUM, S Routine 05/17/2023 5:59 AM CDT BASIC METABOLIC PANEL, S/P Routine 05/17/2023 5:59 AM CDT HEPATIC FUNCTION PANEL, S Routine 05/17/2023 5:51 AM CDT GLUCOSE POCT, B Routine 05/16/2023 9:53 PM CDT ADULT OXYGEN THERAPY Routine 05/16/2023 8:01 PM CDT ADULT OXYGEN THERAPY Routine 05/16/2023 8:01 PM CDT GLUCOSE POCT, B Routine 05/16/2023 5:14 PM CDT SARS CORONAVIRUS 2, PCR RAPID, V STAT 05/16/2023 2:59 PM CDT GLUCOSE POCT, B Routine 05/16/2023 2:13 PM CDT GLUCOSE POCT, B Routine 05/16/2023 8:36 AM CDT ADULT OXYGEN THERAPY Routine 05/16/2023 8:01 AM CDT ADULT OXYGEN THERAPY Routine 05/16/2023 8:01 AM CDT CYSTATIN C WITH EGFR Timed 05/16/2023 4:35 AM CDT CBC WITH DIFFERENTIAL, B Timed 05/16/2023 4:35 AM CDT PHOSPHORUS (INORGANIC), S Timed 05/16/2023 4:35 AM CDT MAGNESIUM, S Timed 05/16/2023 4:35 AM CDT BASIC METABOLIC PANEL, S/P Timed 05/16/2023 4:35 AM CDT GLUCOSE POCT, B Routine 05/15/2023 9:03 PM CDT ADULT OXYGEN THERAPY Routine 05/15/2023 8:01 PM CDT ADULT OXYGEN THERAPY Routine 05/15/2023 8:01 PM CDT GLUCOSE POCT, B Routine 05/15/2023 4:47 PM CDT PHOSPHORUS (INORGANIC), S Timed 05/15/2023 4:21 PM CDT MAGNESIUM, S Timed 05/15/2023 4:21 PM CDT BASIC METABOLIC PANEL, S/P Timed 05/15/2023 4:21 PM CDT (TTE) 2D ECHO DOPPLER COLOR Routine 05/15/2023 2:28 PM CDT GLUCOSE POCT, B Routine 05/15/2023 12:21 PM CDT GLUCOSE POCT, B Routine 05/15/2023 10:28 AM CDT GLUCOSE POCT, B Routine 05/15/2023 8:10 AM CDT ADULT OXYGEN THERAPY Routine 05/15/2023 8:01 AM CDT ADULT OXYGEN THERAPY Routine 05/15/2023 8:01 AM CDT GLUCOSE POCT, B Routine 05/15/2023 6:48 AM CDT CYSTATIN C WITH EGFR Timed 05/15/2023 4:37 AM CDT CBC WITH DIFFERENTIAL, B Timed 05/15/2023 4:37 AM CDT PHOSPHORUS (INORGANIC), S Timed 05/15/2023 4:37 AM CDT MAGNESIUM, S Timed 05/15/2023 4:37 AM CDT BASIC METABOLIC PANEL, S/P Timed 05/15/2023 4:37 AM CDT GLUCOSE POCT, B Routine 05/14/2023 9:09 PM CDT ADULT OXYGEN THERAPY Routine 05/14/2023 8:01 PM CDT ADULT OXYGEN THERAPY Routine 05/14/2023 8:01 PM CDT GLUCOSE POCT, B Routine 05/14/2023 5:36 PM CDT PHOSPHORUS (INORGANIC), S Timed 05/14/2023 5:36 PM CDT MAGNESIUM, S Timed 05/14/2023 5:36 PM CDT BASIC METABOLIC PANEL, S/P Timed 05/14/2023 5:[address] LYMPH NODE BIOPSY RAD - Routine (most inpatients and all outpatients) 05/14/2023 4:22 PM CDT B-CELL LYMPHOMA, FISH, TISSUE Routine 05/14/2023 3:47 PM CDT ADULT OXYGEN THERAPY Routine 05/14/2023 3:34 PM CDT ADULT OXYGEN THERAPY Routine 05/14/2023 3:34 PM CDT ADULT OXYGEN THERAPY Routine 05/14/2023 3:34 PM CDT CYTOLOGY FINE NEEDLE ASPIRATION (INCLUDES CORE BIOPSIES Timed 05/14/2023 3:28 PM CDT GLUCOSE POCT, B Routine 05/14/2023 2:59 PM CDT FL FLUORO LESS THAN 1 HOUR RAD - Routine (most inpatients and all outpatients) 05/14/2023 1:57 PM CDT NON-ENDOSCOPIC TUBE PROCEDURE Routine 05/14/2023 1:15 PM CDT EGD (ESOPHAGEALGASTRODUODE NOSCOPY) Routine 05/14/2023 1:15 PM CDT OK DX BONE MARROW BX & ASPIR Routine 05/14/2023 11:17 AM CDT Vomiting Mass Duodenum LEUKEMIA/LYMPHOMA, PHENOTYPE, V Routine 05/14/2023 11:15 AM CDT GLUCOSE POCT, B Routine 05/14/2023 10:28 AM CDT ADULT OXYGEN THERAPY Routine 05/14/2023 9:01 AM CDT ADULT OXYGEN THERAPY Routine 05/14/2023 9:01 AM CDT ADULT OXYGEN THERAPY Routine 05/14/2023 9:01 AM CDT FL FLUORO LESS THAN 1 HOUR RAD - Routine (most inpatients and all outpatients) 05/14/2023 9:00 AM CDT SURGICAL PATHOLOGY Routine 05/14/2023 8: 42 AM CDT GLUCOSE POCT, B Routine 05/14/2023 7:56 AM CDT UPPER GI ENDOSCOPY Routine 05/14/2023 7: 50 AM CDT EGD (ESOPHAGEALGASTRODUODE NOSCOPY) Routine 05/14/2023 7:50 AM CDT HEMATOPATHOLOGY Routine 05/14/2023 6:22 AM CDT CYSTATIN C WITH EGFR Timed 05/14/2023 4:22 AM CDT CBC WITH DIFFERENTIAL, B Timed 05/14/2023 4:22 AM CDT PHOSPHORUS (INORGANIC), S Timed 05/14/2023 4:22 AM CDT MAGNESIUM, S Timed 05/14/2023 4:22 AM CDT BASIC METABOLIC PANEL, S/P Timed 05/14/2023 4:22 AM CDT ECG Routine 05/14/2023 4:04 AM CDT GLUCOSE POCT, B Routine 05/13/2023 10:40 PM CDT GLUCOSE POCT, B Routine 05/13/2023 5:52 PM CDT PHOSPHORUS (INORGANIC), S Timed 05/13/2023 3:59 PM CDT MAGNESIUM, S Timed 05/13/2023 3:59 PM CDT BASIC METABOLIC PANEL, S/P Timed 05/13/2023 3:59 PM CDT GLUCOSE POCT, B Routine 05/13/2023 12:04 PM CDT GLUCOSE POCT, B Routine 05/13/2023 9:37 AM CDT CYSTATIN C WITH EGFR Routine 05/13/2023 5:41 AM CDT CBC WITH DIFFERENTIAL, B Routine 05/13/2023 5:41 AM CDT PHOSPHORUS (INORGANIC), S Routine 05/13/2023 5:41 AM CDT MAGNESIUM, S Routine 05/13/2023 5:41 AM CDT BASIC METABOLIC PANEL, S/P Routine 05/13/2023 5:41 AM CDT GLUCOSE POCT, B Routine 05/12/2023 10:22 PM CDT GLUCOSE POCT, B Routine 05/12/2023 5:00 PM CDT GLUCOSE POCT, B Routine 05/12/2023 12:19 PM CDT GLUCOSE POCT, B Routine 05/12/2023 8:40 AM CDT CYSTATIN C WITH EGFR Routine 05/12/2023 5:44 AM CDT CBC WITH DIFFERENTIAL, B Routine 05/12/2023 5:44 AM CDT PHOSPHORUS (INORGANIC), S Routine 05/12/2023 5:44 AM CDT MAGNESIUM, S Routine 05/12/2023 5:44 AM CDT BASIC METABOLIC PANEL, S/P Routine 05/12/2023 5:44 AM CDT ECG Routine 05/12/2023 2:[address] ABDOMEN PELVIS WITH IV CONTRAST RAD - Semiurgent (Fast; most ED patients; some inpatients) 05/11/2023 11:14 PM CDT DX ABDOMEN PORTABLE ANTERIOR POSTERIOR 1 VIEW RAD - Semiurgent (Fast; most ED patients; some inpatients) 05/11/2023 10:02 PM CDT LACTATE, POCT, B STAT 05/11/2023 8:33 PM CDT HEPATIC FUNCTION PANEL, S STAT 05/11/2023 8:31 PM CDT PROTHROMBIN TIME (PT), P STAT 05/11/2023 8:31 PM CDT CBC WITH DIFFERENTIAL, B STAT 05/11/2023 8:31 PM CDT LIPASE, S/P STAT 05/11/2023 8:31 PM CDT BASIC METABOLIC PANEL, S/P STAT 05/11/2023 8:31 PM CDT documented in this encounter Results * (ABNORMAL) Comprehensive Metabolic Panel (06/10/2023 9:11 AM CDT) [facility] Potassium, S 3.8 3.6 - 5.2 mmol/L 06/10/2023 10:18 AM CDT DTL Sodium, S 140 135 - 145 mmol/L 06/10/2023 10:18 AM CDT DTL Chloride, S 105 98 - 107 mmol/L 06/10/2023 10:18 AM CDT DTL Bicarbonate, S 25 22 - 29 mmol/L 06/10/2023 10:18 AM CDT DTL Anion Gap 10 7 - 15 06/10/2023 10:18 AM CDT DTL BUN (Blood Urea Nitrogen), S 9 8 - 24 mg/dL 06/10/2023 10:18 AM CDT DTL Creatinine 0.95 0.74 - 1.35 mg/dL 06/10/2023 10:18 AM CDT DTL Estimated GFR (eGFR) 84 >=60 mL/min/BS A 06/10/2023 10:18 AM CDT DTL Comment: Estimated GFR calculated using the 2020 CKD_EPI creatinine equation. Calcium, Total, S 7.6(L) 8.8 - 10.2 mg/dL 06/10/2023 10:18 AM CDT DTL Glucose, S 104 70 - 140 mg/dL 06/10/2023 10:18 AM CDT DTL Protein, Total, S 5.0(L) 6.3 - 7.9 g/dL 06/10/2023 10:18 AM CDT DTL Albumin, S 3.2(L) 3.5 - 5.0 g/dL 06/10/2023 10:18 AM CDT DTL Aspartate Aminotransferase (AST), S 24 8 - 48 U/L 06/10/2023 10:18 AM CDT DTL Alkaline Phosphatase, S 86 40 - 129 U/L 06/10/2023 10:18 AM CDT DTL Alanine Aminotransferase (ALT), S 12 7 - 55 U/L 06/10/2023 10:18 AM CDT DTL Bilirubin, Total, S 0.2 0.0 - 1.2 mg/dL 06/10/2023 10:18 AM CDT DTL Blood (Blood, Venous) 06/10/2023 9:11 AM CDT 06/10/2023 9:51 AM CDT Molly Perez M.D. LAB BLOOD ADD-ON [facility] [address] [place] [address], [facility] DTL[facility] Laboratories[facility] [address] [place] [address] * Glucose, POCT (05/23/2023 8:43 AM CDT) Glucose, POCT, B 82 70 - 140 mg/dL 05/23/2023 8:50 AM CDT PCDE Site Capillary 05/23/2023 8:50 AM CDT PCDE Last Intake > 4 hours 05/23/2023 8:50 AM CDT PCDE Blood 05/23/2023 8:43 AM CDT 05/23/2023 8:50 AM CDT Unknown Provider LAB POCT ORDERABLES- MANUAL POC [facility] [address] [place] [address], [facility] PCDE [facility] 200 [place] [address] * Uric Acid (05/23/2023 5:06 AM CDT) Pathologist [facility] Uric Acid, S 3.7 3.7 - 8.0 mg/dL 05/23/2023 6:28 AM CDT DTL Blood (Blood, Venous) 05/23/2023 5:06 AM CDT 05/23/2023 5:36 AM CDT Miguel Fishman M.D., Ph.D. LAB BLOOD A DD-ON Performing Organization Address City/[facility]/ZIP Co de Phone Number [facility] 200 [place] [address], [facility] DTLake [facility] LaboratoriesSummit [facility] [address] [place] [address] * (ABNORMAL) Basic Metabolic Panel (05/23/2023 5:06 AM CDT) Potassium, S 3.8 3.6 - 5.2 mmol/L 05/23/2023 6:28 AM CDT DTL Sodium, S 139 135 - 145 mmol/L 05/23/2023 6:28 AM CDT DTL Chloride, S 107 98 - 107 mmol/L 05/23/2023 6:28 AM CDT DTL Bicarbonate, S 23 22 - 29 mmol/L 05/23/2023 6:28 AM CDT DTL Anion Gap 9 7 - 15 05/23/2023 6:28 AM CDT DTL BUN (Blood Urea Nitrogen), S 13 8 - 24 mg/dL 05/23/2023 6:28 AM CDT DTL Creatinine 0.88 0.74 - 1.35 mg/dL 05/23/2023 6:28 AM CDT DTL Estimated GFR (eGFR) >90 >=60 mL/min/BSA 05/23/2023 6:28 AM CDT DTL Comment: Estimated GFR calculated using the 2020 CKD_EPI creatinine equation. Calcium, Total, S 7.2(L) 8.8 - 10.2 mg/dL 05/23/2023 6:28 AM CDT DTL Glucose, S 106 70 - 140 mg/dL 05/23/2023 6:28 AM CDT DTL Blood (Blood, Venous) 05/23/2023 5:06 AM CDT 05/23/2023 5:36 AM CDT Miguel Fishman M.D., Ph.D. LAB BLOOD A DD-ON Performing Organization Address City/[facility]/ZIP Co de Phone Number [facility] [address] [facility] 200 [place] [address] * (ABNORMAL) Phosphorus Inorganic (05/23/2023 5:06 AM CDT) Phosphorus (Inorganic), S 2.3(L) 2.5 - 4.5 mg/dL 05/23/2023 6:28 AM CDT DTL Blood (Blood, Venous) 05/23/2023 5:06 AM CDT 05/23/2023 5:36 AM CDT Miguel Fishman M.D., Ph.D. LAB BLOOD A DD-ON Performing Organization Address City/[facility]/ZIP Co de Phone Number [facility] 200 [place] [address], [facility] 200 [place] [address] * Glucose, POCT (05/22/2023 8:11 PM CDT) Glucose, POCT, B 125 70 - 140 mg/dL 05/22/2023 8:14 PM CDT PCDE Site Capillary 05/22/2023 8:14 PM CDT PCDE Last Intake 3-4 hours 05/22/2023 8:14 PM CDT PCDE Blood 05/22/2023 8:11 PM CDT 05/22/2023 8:15 PM CDT Unknown Provider LAB POCT ORDERABLES- MANUAL Performing Organization Address [facility] Co de Phone Number [facility] [address] [place] [address], [facility] PCDE [facility] 200 [place] [address] * Glucose, POCT (05/22/2023 4:40 PM CDT) Glucose, POCT, B 108 70 - 140 mg/dL 05/22/2023 4:42 PM CDT PCDE Site Capillary 05/22/2023 4:42 PM CDT PCDE Last Intake 3-4 hours 05/22/2023 4:42 PM CDT PCDE Blood 05/22/2023 4:40 PM CDT 05/22/2023 4:43 PM CDT Unknown Provider LAB POCT ORDERABLES- MANUAL Performing Organization Address City/[facility] Co de Phone Number [facility] [address] [place] [address], [facility] PCDE [facility] 200 [place] [address] * Uric Acid (05/22/2023 3:06 PM CDT) Uric Acid, S 3.8 3.7 - 8.0 mg/dL 05/22/2023 4:30 PM CDT DTL Blood (Blood, Venous) 05/22/2023 3:06 PM CDT 05/22/2023 4:03 PM CDT Miguel Fishman M.D., Ph.D. LAB BLOOD A DD-ON Performing Organization Address City/[facility] Co de Phone Number [facility] [address] [place] [address] * (ABNORMAL) Phosphorus Inorganic (05/22/2023 3:06 PM CDT) [facility] Phosphorus (Inorganic), S 1.9(L) 2.5 - 4.5 mg/dL 05/22/2023 4:30 PM CDT DTL Blood (Blood, Venous) 05/22/2023 3:06 PM CDT 05/22/2023 4:03 PM CDT Miguel Fishman M.D., Ph.D. LAB BLOOD A DD-ON Performing Organization Address [facility] Co de Phone Number [facility] [address] [place] [address] * LD (Lactate Dehydrogenase) (05/22/2023 3:06 PM CDT) [facility] G[facility] LD 157 122 - 222 U/L 05/22/2023 4:01 PM CDT DTL Blood (Blood, Venous) 05/22/2023 3:06 PM CDT 05/22/2023 3:44 PM CDT Miguel Fishman M.D., Ph.D. LAB BLOOD N ON ADD-ON Performing Organization Address City/[facility]/ZIP Co de Phone Number [facility] 200 [place] [address] * (ABNORMAL) Basic Metabolic Panel (05/22/2023 3:06 PM CDT) [facility] Potassium, S 3.7 3.6 - 5.2 mmol/L 05/22/2023 4:30 PM CDT DTL Sodium, S 139 135 - 145 mmol/L 05/22/2023 4:30 PM CDT DTL Chloride, S 107 98 - 107 mmol/L 05/22/2023 4:30 PM CDT DTL Bicarbonate, S 25 22 - 29 mmol/L 05/22/2023 4:30 PM CDT DTL Anion Gap 7 7 - 15 05/22/2023 4:30 PM CDT DTL BUN (Blood Urea Nitrogen), S 16 8 - 24 mg/dL 05/22/2023 4:30 PM CDT DTL Creatinine 0.89 0.74 - 1.35 mg/dL 05/22/2023 4:30 PM CDT DTL Estimated GFR (eGFR) 90 >=60 mL/min/BSA 05/22/2023 4:30 PM CDT DTL Comment: Estimated GFR calculated using the 2020 CKD_EPI creatinine equation. Calcium, Total, S 6.9(L) 8.8 - 10.2 mg/dL 05/22/2023 4:30 PM CDT DTL Glucose, S 123 70 - 140 mg/dL 05/22/2023 4:30 PM CDT DTL Blood (Blood, Venous) 05/22/2023 3:06 PM CDT 05/22/2023 4:03 PM CDT Miguel Fishman M.D., Ph.D. LAB BLOOD A DD-ON [facility] [address] [place] [address], [facility] [address] [place] [address] * Glucose, POCT (05/22/2023 11:00 AM CDT) Glucose, POCT, B 116 70 - 140 mg/dL 05/22/2023 11:14 AM CDT PCDE Site Capillary 05/22/2023 11:14 AM CDT PCDE Last Intake 3-4 hours 05/22/2023 11:14 AM CDT PCDE Blood 05/22/2023 11:0 0 AM CDT 05/22/2023 11:14 AM CDT Unknown Provider LAB POCT ORDERABLES- MANUAL Performing Organization Address City/[facility]/ZIP Co de Phone Number [facility] [address] [place] [address], [facility] PCDE [facility] 200 [place] [address] * Glucose, POCT (05/22/2023 7:24 AM CDT) Glucose, POCT, B 77 70 - 140 mg/dL 05/22/2023 7:28 AM CDT PCDE Site Capillary 05/22/2023 7:28 AM CDT PCDE Last Intake > 4 hours 05/22/2023 7:28 AM CDT PCDE Blood 05/22/2023 7:24 AM CDT 05/22/2023 7:29 AM CDT Unknown Provider LAB POCT ORDERABLES- MANUAL Performing Organization Address City/[facility] Co de Phone Number [facility] [address] [place] [address], [facility] PCDE [facility] [address] [place] [address] * Magnesium (05/22/2023 12:15 AM CDT) Magnesium, S 1.7 1.7 - 2.3 mg/dL 05/22/2023 1:10 AM CDT DTL Blood (Blood, Venous) 05/22/2023 12:15 AM CDT 05/22/2023 1:00 AM CDT Isauro Farris M.D. LAB BLOOD ADD-ON Performing Organization Address City/[facility]/ZIP Co de Phone Number [facility] 200 [place] [address], [facility] [address] [place] [address] * (ABNORMAL) CBC with Differential, Blood (05/22/2023 12:15 AM CDT) Hemoglobin 8.3(L) 13.2 - 16.6 g/dL 05/22/2023 12:57 AM CDT DTL Hematocrit 27.6(L) 38.3 - 48.6 % 05/22/2023 12:57 AM CDT DTL Erythrocytes 3.41(L) 4.35 - 5.65 x10(12)/L 05/22/2023 12:57 AM CDT DTL MCV 80.9 78.2 - 97.9 fL 05/22/2023 12:57 AM CDT DTL RBC Distrib Width 19.3(H) 11.8 - 14.5 % 05/22/2023 12:57 AM CDT DTL Platelet Count 175 135 - 317 x10(9)/L 05/22/2023 12:57 AM CDT DTL Leukocytes 5.7 3.4 - 9.6 x10(9)/L 05/22/2023 12:57 AM CDT DTL Neutrophils 4.88 1.56 - 6.45 x10(9)/L 05/22/2023 12:57 AM CDT DHPM Lymphocytes 0.50(L) 0.95 - 3.07 x10(9)/L 05/22/2023 12:57 AM CDT DTL Monocytes 0.27 0.26 - 0.81 x10(9)/L 05/22/2023 12:57 AM CDT DTL Eosinophils 0.03 0.03 - 0.48 x10(9)/L 05/22/2023 12:57 AM CDT DTL Basophils <0.03 0.01 - 0.08 x10(9)/L 05/22/2023 12:57 AM CDT DTL Blood (Blood, Venous) 05/22/2023 12:15 AM CDT 05/22/2023 12:50 AM CDT Isauro Farris M.D. LAB BLOOD ADD-ON [facility] [address] [place] [address], [facility] DTL [facility] [address] [place] [address] [facility] [address] [place] [address] * (ABNORMAL) Basic Metabolic Panel (05/22/2023 12:15 AM CDT) Potassium, S 3.6 3.6 - 5.2 mmol/L 05/22/2023 1:15 AM CDT DTL Sodium, S 139 135 - 145 mmol/L 05/22/2023 1:15 AM CDT DTL Chloride, S 108(H) 98 - 107 mmol/L 05/22/2023 1:15 AM CDT DTL Bicarbonate, S 25 22 - 29 mmol/L 05/22/2023 1:15 AM CDT DTL Anion Gap 6(L) 7 - 15 05/22/2023 1:15 AM CDT DTL BUN (Blood Urea Nitrogen), S 19 8 - 24 mg/dL 05/22/2023 1:15 AM CDT DTL Creatinine 0.96 0.74 - 1.35 mg/dL 05/22/2023 1:15 AM CDT DTL Estimated GFR (eGFR) 83 >=60 mL/min/BSA 05/22/2023 1:15 AM CDT DTL Comment: Estimated GFR calculated using the 2020 CKD_EPI creatinine equation. Calcium, Total, S 7.2(L) 8.8 - 10.2 mg/dL 05/22/2023 1:15 AM CDT DTL Glucose, S 84 70 - 140 mg/dL 05/22/2023 1:15 AM CDT DTL Blood (Blood, Venous) 05/22/2023 12:15 AM CDT 05/22/2023 1:00 AM CDT Isauro Farris M.D. LAB BLOOD ADD-ON [facility] [address] [place] [address], [facility] [address] [place] [address] * Uric Acid (05/22/2023 12:15 AM CDT) Uric Acid, S 4.5 3.7 - 8.0 mg/dL 05/22/2023 1:15 AM CDT DTL Blood (Blood, Venous) 05/22/2023 12:15 AM CDT 05/22/2023 1:00 AM CDT Isauro Farris M.D. LAB BLOOD ADD-ON [facility] 200 [place] [address], [facility] 200 [place] [address] * (ABNORMAL) Phosphorus Inorganic (05/22/2023 12:15 AM CDT) [facility] Phosphorus (Inorganic), S 1.7(L) 2.5 - 4.5 mg/dL 05/22/2023 1:15 AM CDT DT Blood (Blood, Venous) 05/22/2023 12:15 AM CDT 05/22/2023 1:00 AM CDT Isauro Farris M.D. LAB BLOOD ADD-ON Performing Organization Address City/[facility]/ZIP Co de Phone Number [facility] 200 [place], [place] [address] 200 [place] [address] * LD (Lactate Dehydrogenase) (05/22/2023 12:15 AM CDT) [facility] G[facility]da LD 169 122 - 222 U/L 05/22/2023 2:00 AM CDT DT Blood (Blood, Venous) 05/22/2023 12:15 AM CDT 05/22/2023 1:19 AM CDT Isauro Farris M.D. LAB BLOOD NON ADD-ON Performing Organization Address City/[facility]/ZIP Co de Phone Number [facility] [address] [place], [place] [id number] [place] [address] 200 [place] [address] * Glucose, POCT (05/21/2023 8:26 PM CDT) [facility] Glucose, POCT, B 116 70 - 140 mg/dL 05/21/2023 8:29 PM CDT PCDE Site Capillary 05/21/2023 8:29 PM CDT PCDE Last Intake 3-4 hours 05/21/2023 8:29 PM CDT PCDE Blood 05/21/2023 8:26 PM CDT 05/21/2023 8:29 PM CDT Unknown Provider LAB POCT ORDERABLES- MANUAL [facility] [address] [place] [address], [facility] PCDE [facility] POC [address] [place] [address] * (ABNORMAL) Basic Metabolic Panel (05/21/2023 6:55 PM CDT) Potassium, S 3.8 3.6 - 5.2 mmol/L 05/21/2023 7:32 PM CDT DTL Sodium, S 139 135 - 145 mmol/L 05/21/2023 7:32 PM CDT DTL Chloride, S 108(H) 98 - 107 mmol/L 05/21/2023 7:32 PM CDT DTL Bicarbonate, S 24 22 - 29 mmol/L 05/21/2023 7:32 PM CDT DTL Anion Gap 7 7 - 15 05/21/2023 7:32 PM CDT DTL BUN (Blood Urea Nitrogen), S 17 8 - 24 mg/dL 05/21/2023 7:32 PM CDT DTL Creatinine 0.90 0.74 - 1.35 mg/dL 05/21/2023 7:32 PM CDT DTL Estimated GFR (eGFR) 90 >=60 mL/min/BSA 05/21/2023 7:32 PM CDT DTL Comment: Estimated GFR calculated using the 2020 CKD_EPI creatinine equation. Calcium, Total, S 7.4(L) 8.8 - 10.2 mg/dL 05/21/2023 7:32 PM CDT DTL Glucose, S 124 70 - 140 mg/dL 05/21/2023 7:32 PM CDT DTL Blood (Blood, Venous) 05/21/2023 6:55 PM CDT 05/21/2023 7:16 PM CDT Isauro Farris M.D. LAB BLOOD ADD-ON Performing Organization Address City/[facility]/ZIP Co de Phone Number [facility] 200 [place], [place] [id number] [place] [address] 200 [place] [address] * Uric Acid (05/21/2023 6:55 PM CDT) [facility] Uric Acid, S 4.5 3.7 - 8.0 mg/dL 05/21/2023 7:32 PM CDT DTL Blood (Blood, Venous) 05/21/2023 6:55 PM CDT 05/21/2023 7:16 PM CDT Isauro Farris M.D. LAB BLOOD ADD-ON Performing Organization Address [facility] Co de Phone Number [facility] [address] [place], [place] [phone] [place] [address] 200 [place] [address] * (ABNORMAL) Phosphorus Inorganic (05/21/2023 6:55 PM CDT) [facility] Phosphorus (Inorganic), S 1.6(L) 2.5 - 4.5 mg/dL 05/21/2023 7:32 PM CDT DTL Blood (Blood, Venous) 05/21/2023 6:55 PM CDT 05/21/2023 7:16 PM CDT Isauro Farris M.D. LAB BLOOD ADD-ON Performing Organization Address City/[facility]/ZIP Co de Phone Number [facility] [address] [place], [place] [phone] [place] [address] 200 [place] [address] * LD (Lactate Dehydrogenase) (05/21/2023 6:55 PM CDT) [facility] Gricelda LD 171 122 - 222 U/L 05/21/2023 8:07 PM CDT DTL Blood (Blood, Venous) 05/21/2023 6:55 PM CDT 05/21/2023 7:49 PM CDT Isauro Farris M.D. LAB BLOOD NON ADD-ON [facility] [address] [place] [address], [facility] DTL [facility] 200 [place] [address] * Glucose, POCT (05/21/2023 4:42 PM CDT) Glucose, POCT, B 126 70 - 140 mg/dL 05/21/2023 4:45 PM CDT PCDE Site Capillary 05/21/2023 4:45 PM CDT PCDE Last Intake 3-4 hours 05/21/2023 4:45 PM CDT PCDE Blood 05/21/2023 4:42 PM CDT 05/21/2023 4:45 PM CDT Unknown Provider LAB POCT ORDERABLES- MANUAL Performing Organization Address City/[facility]/ZIP Co de Phone Number [facility] [address] [place] [address], [facility] PCDE [facility] [address] [place] [address] * Glucose, POCT (05/21/2023 12:01 PM CDT) Glucose, POCT, B 103 70 - 140 mg/dL 05/21/2023 12:04 PM CDT PCDE Site Capillary 05/21/2023 12:04 PM CDT PCDE Last Intake 3-4 hours 05/21/2023 12:04 PM CDT PCDE Blood 05/21/2023 12:0 1 PM CDT 05/21/2023 12:04 PM CDT Unknown Provider LAB POCT ORDERABLES- MANUAL [facility] [address] [place] [address], [facility] PCDE [facility]OC [address] [place] [address] * (ABNORMAL) Glucose, POCT (05/21/2023 7:14 AM CDT) [facility] Glucose, POCT, B 145(H) 70 - 140 mg/dL 05/21/2023 7:19 AM CDT PCDE Site Capillary 05/21/2023 7:19 AM CDT PCDE Last Intake > 4 hours 05/21/2023 7:19 AM CDT PCDE Blood 05/21/2023 7:14 AM CDT 05/21/2023 7:20 AM CDT Unknown Provider LAB POCT ORDERABLES- MANUAL Performing Organization Address City/State/[facility] Co de Phone Number [facility] [address] [place] [address], [facility] PCDE [facility] POC [address] [place] [address] * (ABNORMAL) CBC with Differential, Blood (05/21/2023 4:44 AM CDT) [facility] Hemoglobin 9.0(L) 13.2 - 16.6 g/dL 05/21/2023 4:59 AM CDT DTL Hematocrit 28.1(L) 38.3 - 48.6 % 05/21/2023 4:59 AM CDT DTL Erythrocytes 3.61(L) 4.35 - 5.65 x10(12)/L 05/21/2023 4:59 AM CDT DTL MCV 77.8(L) 78.2 - 97.9 fL 05/21/2023 4:59 AM CDT DTL RBC Distrib Width 18.8(H) 11.8 - 14.5 % 05/21/2023 4:59 AM CDT DTL Platelet Count 183 135 - 317 x10(9)/L 05/21/2023 4:59 AM CDT DTL Leukocytes 4.7 3.4 - 9.6 x10(9)/L 05/21/2023 4:59 AM CDT DTL Neutrophils 4.14 1.56 - 6.45 x10(9)/L 05/21/2023 4:59 AM CDT DHPM Lymphocytes 0.29(L) 0.95 - 3.07 x10(9)/L 05/21/2023 4:59 AM CDT DTL Monocytes 0.27 0.26 - 0.81 x10(9)/L 05/21/2023 4:59 AM CDT DTL Eosinophils <0.03 0.03 - 0.48 x10(9)/L 05/21/2023 4:59 AM CDT DTL Basophils <0.03 0.01 - 0.08 x10(9)/L 05/21/2023 4:59 AM CDT DTL Blood (Blood, Venous) 05/21/2023 4:44 AM CDT 05/21/2023 4:52 AM CDT Isauro Farris M.D. LAB BLOOD ADD-ON [facility] [address] [place] [address], [facility] DTL [facility] [address] [place] [address] [facility] [address] [place] [address] * 25-Hydroxyvitamin D2 and D3 (05/21/2023 4:43 AM CDT) [facility] 25-Hydroxy D2 <4.0 ng/mL 05/22/2023 8:47 AM CDT [facility] 25-Hydroxy D3 37 ng/mL 05/22/2023 8:47 AM CDT [facility] 25-Hydroxy D Total 37 ng/mL 2022 8:47 AM CDT [facility] Comment: ----REFERENCE VALUE---- 25-HYDROXY D TOTAL (D2+D3) Optimum levels in the healthy population are 20-50, patients with bone disease may benefit from higher levels within this range. ----ADDITIONAL INFORMATION---- This test was developed and its performance characteristics determined by [facility] in a manner consistent with CLIA requirements. This test has not been cleared or approved by the U.S. Food and Drug Administration. Blood (Blood, Venous) 05/21/2023 4:43 AM CDT 05/21/2023 8:41 AM CDT Molly Perez M.D. LAB BLOOD ADD-ON [facility] [employer] [facility] [address] [place] [address] [facility] [address] [place] [address] [place] [address] * Magnesium (05/21/2023 4:43 AM CDT) Magnesium, S 2.0 1.7 - 2.3 mg/dL 05/21/2023 5:19 AM CDT DTL Blood (Blood, Venous) 05/21/2023 4:43 AM CDT 05/21/2023 5:03 AM CDT Isauro Farris M.D. LAB BLOOD ADD-ON Performing Organization Address [facility]/ZIP Co de Phone Number [facility] [address] [place] [address] * (ABNORMAL) Phosphorus Inorganic (05/21/2023 4:43 AM CDT) [facility] Phosphorus (Inorganic), S 2.0(L) 2.5 - 4.5 mg/dL 05/21/2023 5:19 AM CDT DTL Blood (Blood, Venous) 05/21/2023 4:43 AM CDT 05/21/2023 5:03 AM CDT Isauro Farris M.D. LAB BLOOD ADD-ON Performing Organization Address City/[facility]/ZIP Co de Phone Number [facility] [address] [facility] 200 [place] [address] * (ABNORMAL) Basic Metabolic Panel (05/21/2023 4:43 AM CDT) Potassium, S 3.6 3.6 - 5.2 mmol/L 05/21/2023 5:19 AM CDT DTL Sodium, S 139 135 - 145 mmol/L 05/21/2023 5:19 AM CDT DTL Chloride, S 107 98 - 107 mmol/L 05/21/2023 5:19 AM CDT DTL Bicarbonate, S 25 22 - 29 mmol/L 05/21/2023 5:19 AM CDT DTL Anion Gap 7 7 - 15 05/21/2023 5:19 AM CDT DTL BUN (Blood Urea Nitrogen), S 18 8 - 24 mg/dL 05/21/2023 5:19 AM CDT DTL Creatinine 0.90 0.74 - 1.35 mg/dL 05/21/2023 5:19 AM CDT DTL Estimated GFR (eGFR) 90 >=60 mL/min/BSA 05/21/2023 5:19 AM CDT DTL Comment: Estimated GFR calculated using the 2020 CKD_EPI creatinine equation. Calcium, Total, S 7.3(L) 8.8 - 10.2 mg/dL 05/21/2023 5:19 AM CDT DTL Glucose, S 161(H) 70 - 140 mg/dL 05/21/2023 5:19 AM CDT DTL Blood (Blood, Venous) 05/21/2023 4:43 AM CDT 05/21/2023 5:03 AM CDT Isauro Farris M.D. LAB BLOOD ADD-ON [facility] [address] [place] [address], [facility] [address] [place] [address] * (ABNORMAL) Cystatin C with Estimated GFR (05/21/2023 4:39 AM CDT) Pathologist [facility] eGFR by Cystatin C 39(L) >60 mL/min/BSA 05/21/2023 8:49 AM CDT DTL Comment: Estimated GFR calculated [...] lower with the new assay. Cystatin C 1.61(H) 0.67 - 1.21 mg/L 05/21/2023 8:49 AM CDT DTL Blood (Blood, Venous) 05/21/2023 4:39 AM CDT 05/21/2023 8:24 AM CDT Isauro Farris M.D. LAB BLOOD ADD-ON [facility] [address] [place] [address], [facility] DTL [facility] [address] [place] [address] * (ABNORMAL) Glucose, POCT (05/20/2023 8:57 PM CDT) Glucose, POCT, B 209(H) 70 - 140 mg/dL 05/20/2023 9:02 PM CDT PCDE Site Capillary 05/20/2023 9:02 PM CDT PCDE Last Intake 3-4 hours 05/20/2023 9:02 PM CDT PCDE Blood 05/20/2023 8:57 PM CDT 05/20/2023 9:03 PM CDT Unknown Provider LAB POCT ORDERABLES- MANUAL POC [facility] [address] [place] [address], [facility] PCDE [facility] POC [address] [place] [address] * (ABNORMAL) Glucose, POCT (05/20/2023 5:00 PM CDT) Glucose, POCT, B 190(H) 70 - 140 mg/dL 05/20/2023 5:01 PM CDT PCDE Site Capillary 05/20/2023 5:01 PM CDT PCDE Last Intake 3-4 hours 05/20/2023 5:01 PM CDT PCDE Blood 05/20/2023 5:00 PM CDT 05/20/2023 5:01 PM CDT Unknown Provider LAB POCT ORDERABLES- MANUAL POC [facility] [address] [place], [place] [address] PCDE [facility] POC [address] [place] [address] * Glucose, POCT (05/20/2023 12:03 PM CDT) Glucose, POCT, B 133 70 - 140 mg/dL 05/20/2023 12:10 PM CDT PCDE Site Capillary 05/20/2023 12:10 PM CDT PCDE Last Intake 1-2 hours 05/20/2023 12:10 PM CDT PCDE Blood 05/20/2023 12:0 3 PM CDT 05/20/2023 12:10 PM CDT Unknown Provider LAB POCT ORDERABLES- MANUAL Performing Organization Address City/[facility]/ZIP Co de Phone Number POC [facility] [address] [place] [address], [facility] PCDE [facility] POC [address] [place] [address] * (ABNORMAL) Glucose, POCT (05/20/2023 7:40 AM CDT) Glucose, POCT, B 154(H) 70 - 140 mg/dL 05/20/2023 8:04 AM CDT PCDE Site Capillary 05/20/2023 8:04 AM CDT PCDE Last Intake > 4 hours 05/20/2023 8:04 AM CDT PCDE Blood 05/20/2023 7:40 AM CDT 05/20/2023 8:04 AM CDT Unknown Provider LAB POCT ORDERABLES- MANUAL [facility] [address] [place] [address], [facility] PCDE [facility] POC [address] [place] [address] * (ABNORMAL) CBC with Differential, Blood (05/20/2023 12:09 AM CDT) Hemoglobin 8.3(L) 13.2 - 16.6 g/dL 05/20/2023 12:43 AM CDT DTL Hematocrit 26.7(L) 38.3 - 48.6 % 05/20/2023 12:43 AM CDT DTL Erythrocytes 3.40(L) 4.35 - 5.65 x10(12)/L 05/20/2023 12:43 AM CDT DTL MCV 78.5 78.2 - 97.9 fL 05/20/2023 12:43 AM CDT DTL RBC Distrib Width 18.9(H) 11.8 - 14.5 % 05/20/2023 12:43 AM CDT DTL Platelet Count 190 135 - 317 x10(9)/L 05/20/2023 12:43 AM CDT DTL Leukocytes 2.4(L) 3.4 - 9.6 x10(9)/L 05/20/2023 12:43 AM CDT DTL Neutrophils 2.21 1.56 - 6.45 x10(9)/L 05/20/2023 12:43 AM CDT DHPM Lymphocytes 0.17(L) 0.95 - 3.07 x10(9)/L 05/20/2023 12:43 AM CDT DTL Monocytes 0.03(L) 0.26 - 0.81 x10(9)/L 05/20/2023 12:43 AM CDT DTL Eosinophils <0.03 0.03 - 0.48 x10(9)/L 05/20/2023 12:43 AM CDT DTL Basophils <0.03 0.01 - 0.08 x10(9)/L 05/20/2023 12:43 AM CDT DTL Blood (Blood, Venous) 05/20/2023 12:09 AM CDT 05/20/2023 12:36 AM CDT Isauro Farris M.D. LAB BLOOD ADD-ON [facility] [address] [place] [address], [facility] [address] [place], [place] [id number] [place] [address] 200 [place] [address] * Uric Acid (05/20/2023 12:09 AM CDT) [facility] Uric Acid, S 5.4 3.7 - 8.0 mg/dL 05/20/2023 1:09 AM CDT DTL Blood (Blood, Venous) 05/20/2023 12:09 AM CDT 05/20/2023 12:54 AM CDT Isauro Farris M.D. LAB BLOOD ADD-ON Performing Organization Address City/[facility]/ZIP Co de Phone Number [facility] [address] [place] [address], [facility] [address] [place] [address] * Phosphorus Inorganic (05/20/2023 12:09 AM CDT) [facility] Phosphorus (Inorganic), S 2.5 2.5 - 4.5 mg/dL 05/20/2023 1:09 AM CDT DT Blood (Blood, Venous) 05/20/2023 12:09 AM CDT 05/20/2023 12:54 AM CDT Isauro Farris M.D. LAB BLOOD ADD-ON [facility] [address] [place] [address], [facility] [address] [place] [address] * LD (Lactate Dehydrogenase) (05/20/2023 12:09 AM CDT) [facility] Gricelda LD 165 122 - 222 U/L 05/20/2023 1:10 AM CDT DTL Blood (Blood, Venous) 05/20/2023 12:09 AM CDT 05/20/2023 12:53 AM CDT Isauro Farris M.D. LAB BLOOD NON ADD-ON [facility] [address] [place] [address], [facility] DTL [facility] [address] [place] [address] * (ABNORMAL) Basic Metabolic Panel (05/20/2023 12:09 AM CDT) Pathologist [facility] Potassium, S 4.0 3.6 - 5.2 mmol/L 05/20/2023 1:09 AM CDT DTL Sodium, S 138 135 - 145 mmol/L 05/20/2023 1:09 AM CDT DTL Chloride, S 106 98 - 107 mmol/L 05/20/2023 1:09 AM CDT DTL Bicarbonate, S 24 22 - 29 mmol/L 05/20/2023 1:09 AM CDT DTL Anion Gap 8 7 - 15 05/20/2023 1:09 AM CDT DTL BUN (Blood Urea Nitrogen), S 18 8 - 24 mg/dL 05/20/2023 1:09 AM CDT DTL Creatinine 0.95 0.74 - 1.35 mg/dL 05/20/2023 1:09 AM CDT DTL Estimated GFR (eGFR) 84 >=60 mL/min/BSA 05/20/2023 1:09 AM CDT DTL Comment: Estimated GFR calculated using the 2020 CKD_EPI creatinine equation. Calcium, Total, S 7.0(L) 8.8 - 10.2 mg/dL 05/20/2023 1:09 AM CDT DTL Glucose, S 215(H) 70 - 140 mg/dL 05/20/2023 1:09 AM CDT DTL Blood (Blood, Venous) 05/20/2023 12:09 AM CDT 05/20/2023 12:54 AM CDT Iasuro Farris M.D. LAB BLOOD ADD-ON [facility] [address] [place] [address], [facility] [address] [place] [address] * (ABNORMAL) Cystatin C with Estimated GFR (05/20/2023 12:04 AM CDT) eGFR by Cystatin C 46(L) >60 mL/min/BSA 05/20/2023 8:46 AM CDT DTL Comment: Estimated GFR calculated [...] lower with the new assay. Cystatin C 1.43(H) 0.67 - 1.21 mg/L 05/20/2023 8:46 AM CDT DTL Blood (Blood, Venous) 05/20/2023 12:04 AM CDT 05/20/2023 8:03 AM CDT Isauro Farris M.D. LAB BLOOD ADD-ON [facility] [address] [place] [address], [facility] [address] [place] [address] * (ABNORMAL) Glucose, POCT (05/19/2023 8:56 PM CDT) Glucose, POCT, B 193(H) 70 - 140 mg/dL 05/19/2023 9:00 PM CDT PCDE Site Capillary 05/19/2023 9:00 PM CDT PCDE Last Intake NPO 05/19/2023 9:00 PM CDT PCDE Blood 05/19/2023 8:56 PM CDT 05/19/2023 9:01 PM CDT Unknown Provider LAB POCT ORDERABLES- MANUAL Performing Organization Address City/[facility]/ZIP Co de Phone Number [facility] [address] [place] [address], [facility] PCDE [facility] POC [address] [place] [address] * (ABNORMAL) Glucose, POCT (05/19/2023 5:29 PM CDT) Glucose, POCT, B 148(H) 70 - 140 mg/dL 05/19/2023 5:31 PM CDT PCDE Site Capillary 05/19/2023 5:31 PM CDT PCDE Last Intake NPO 05/19/2023 5:31 PM CDT PCDE Blood 05/19/2023 5:29 PM CDT 05/19/2023 5:31 PM CDT Unknown Provider LAB POCT ORDERABLES- MANUAL Performing Organization Address City/[facility]/ZIP Co de Phone Number [facility] [address] [place] [address], [facility] PCDE [facility] POC [address] [place] [address] * (ABNORMAL) Glucose, POCT (05/19/2023 12:06 PM CDT) Glucose, POCT, B 148(H) 70 - 140 mg/dL 05/19/2023 12:09 PM CDT PCDE Site Capillary 05/19/2023 12:09 PM CDT PCDE Last Intake NPO 05/19/2023 12:09 PM CDT PCDE Blood 05/19/2023 12:0 6 PM CDT 05/19/2023 12:10 PM CDT Unknown Provider LAB POCT ORDERABLES- MANUAL Performing Organization Address City/[facility]/ZIP Co de Phone Number [facility] [address] [place] [address], [facility] PCDE [facility] POC [address] [place] [address] * (ABNORMAL) Glucose, POCT (05/19/2023 7:39 AM CDT) Glucose, POCT, B 175(H) 70 - 140 mg/dL 05/19/2023 7:43 AM CDT PCDE Site Capillary 05/19/2023 7:43 AM CDT PCDE Last Intake NPO 05/19/2023 7:43 AM CDT PCDE Blood 05/19/2023 7:39 AM CDT 05/19/2023 7:43 AM CDT Unknown Provider LAB POCT ORDERABLES- MANUAL [facility] [address] [place] [address], [facility] PCDE [facility] POC [address] [place] [address] * (ABNORMAL) LD (Lactate Dehydrogenase) (05/19/2023 12:03 AM CDT) [facility] LD 243(H) 122 - 222 U/L 05/19/2023 3:14 AM CDT DTL Blood (Blood, Venous) 05/19/2023 12:03 AM CDT 05/19/2023 1:15 AM CDT Dereje Mcwilliams M.D. LAB BLOOD NON ADD- ON Performing Organization Address City/[facility]/ZIP Co de Phone Number [facility] [address] [place] [address], [facility] DTL [facility] [address] [place] [address] * (ABNORMAL) Cystatin C with Estimated GFR (05/19/2023 12:03 AM CDT) [facility] eGFR by Cystatin C 43(L) >60 mL/min/BSA 05/19/2023 2:31 AM CDT DTL Comment: Estimated GFR calculated [...] lower with the new assay. Cystatin C 1.51(H) 0.67 - 1.21 mg/L 05/19/2023 2:31 AM CDT DTL Blood (Blood, Venous) 05/19/2023 12:03 AM CDT 05/19/2023 12:10 AM CDT Dereje Mcwilliams M.D. LAB BLOOD ADD-ON Performing Organization Address City/[facility]/ZIP Co de Phone Number [facility] [address] [place] [address] * Phosphorus Inorganic (05/19/2023 12:03 AM CDT) [facility] Phosphorus (Inorganic), S 2.7 2.5 - 4.5 mg/dL 05/19/2023 2:31 AM CDT DTL Blood (Blood, Venous) 05/19/2023 12:03 AM CDT 05/19/2023 12:10 AM CDT Dereje Mcwilliams M.D. LAB BLOOD ADD-ON Performing Organization Address [facility] Co de Phone Number [facility] [address] [place] [address] * (ABNORMAL) CBC with Differential, Blood (05/19/2023 12:03 AM CDT) [facility] Hemoglobin 9.0(L) 13.2 - 16.6 g/dL 05/19/2023 12:58 AM CDT DTL Hematocrit 28.5(L) 38.3 - 48.6 % 05/19/2023 12:58 AM CDT DTL Erythrocytes 3.64(L) 4.35 - 5.65 x10(12)/L 05/19/2023 12:58 AM CDT DTL MCV 78.3 78.2 - 97.9 fL 05/19/2023 12:58 AM CDT DTL RBC Distrib Width 18.9(H) 11.8 - 14.5 % 05/19/2023 12:58 AM CDT DTL Platelet Count 215 135 - 317 x10(9)/L 05/19/2023 12:58 AM CDT DTL Leukocytes 3.4 3.4 - 9.6 x10(9)/L 05/19/2023 12:58 AM CDT DTL Neutrophils 3.11 1.56 - 6.45 x10(9)/L 05/19/2023 12:58 AM CDT DHPM Lymphocytes 0.14(L) 0.95 - 3.07 x10(9)/L 05/19/2023 12:58 AM CDT DTL Monocytes 0.14(L) 0.26 - 0.81 x10(9)/L 05/19/2023 12:58 AM CDT DTL Eosinophils <0.03 0.03 - 0.48 x10(9)/L 05/19/2023 12:58 AM CDT DTL Basophils <0.03 0.01 - 0.08 x10(9)/L 05/19/2023 12:58 AM CDT DTL Blood (Blood, Venous) 05/19/2023 12:03 AM CDT 05/19/2023 12:10 AM CDT Dereje Mcwilliams M.D. LAB BLOOD ADD-ON [facility] [address] [place] [address], [facility] DTL [facility] [address] [place] [address] [facility] [address] [place] [address] * (ABNORMAL) Basic Metabolic Panel (05/19/2023 12:03 AM CDT) Potassium, S 3.9 3.6 - 5.2 mmol/L 05/19/2023 2:31 AM CDT DTL Sodium, S 137 135 - 145 mmol/L 05/19/2023 2:31 AM CDT DTL Chloride, S 104 98 - 107 mmol/L 05/19/2023 2:31 AM CDT DTL Bicarbonate, S 22 22 - 29 mmol/L 05/19/2023 2:31 AM CDT DTL Anion Gap 11 7 - 15 05/19/2023 2:31 AM CDT DTL BUN (Blood Urea Nitrogen), S 21 8 - 24 mg/dL 05/19/2023 2:31 AM CDT DTL Creatinine 1.03 0.74 - 1.35 mg/dL 05/19/2023 2:31 AM CDT DTL Estimated GFR (eGFR) 76 >=60 mL/min/BSA 05/19/2023 2:31 AM CDT DTL Comment: Estimated GFR calculated using the 2020 CKD_EPI creatinine equation. Calcium, Total, S 7.1(L) 8.8 - 10.2 mg/dL 05/19/2023 2:31 AM CDT DTL Glucose, S 209(H) 70 - 140 mg/dL 05/19/2023 2:31 AM CDT DTL Blood (Blood, Venous) 05/19/2023 12:03 AM CDT 05/19/2023 12:10 AM CDT Dereje Mcwilliams M.D. LAB BLOOD ADD-ON [facility] [address] [place] [address], [facility] [address] [place] [address] * Uric Acid (05/19/2023 12:03 AM CDT) Uric Acid, S 6.2 3.7 - 8.0 mg/dL 05/19/2023 2:31 AM CDT DTL Blood (Blood, Venous) 05/19/2023 12:03 AM CDT 05/19/2023 12:10 AM CDT Dereje Mcwilliams M.D. LAB BLOOD ADD-ON [facility] [address] [place] [address], [facility] [address] [place] [address] * (ABNORMAL) Glucose, POCT (05/18/2023 8:48 PM CDT) Glucose, POCT, B 192(H) 70 - 140 mg/dL 05/18/2023 9:01 PM CDT PCDE Site Capillary 05/18/2023 9:01 PM CDT PCDE Last Intake > 4 hours 05/18/2023 9:01 PM CDT PCDE Blood 05/18/2023 8:48 PM CDT 05/18/2023 9:01 PM CDT Unknown Provider LAB POCT ORDERABLES- MANUAL Performing Organization Address City/[facility]/ZIP Co de Phone Number [facility] [address] [place] [address], [facility] PCDE [facility] POC [address] [place] [address] * (ABNORMAL) Glucose, POCT (05/18/2023 5:30 PM CDT) Glucose, POCT, B 200(H) 70 - 140 mg/dL 05/18/2023 5:34 PM CDT PCDE Site Capillary 05/18/2023 5:34 PM CDT PCDE Blood 05/18/2023 5:30 PM CDT 05/18/2023 5:34 PM CDT Unknown Provider LAB POCT ORDERABLES- MANUAL POC [facility] [address] [place] [address], [facility] PCDE [facility] POC [address] [place] [address] * (ABNORMAL) Dipstick, Urine (05/18/2023 4:09 PM CDT) Hemoglobin, QL, U Negative Negative 05/18/2023 6:25 PM CDT DTL Leukocyte Esterase, U Negative Negative 05/18/2023 6:25 PM CDT DTL Nitrite, U Negative Negative 05/18/2023 6:25 PM CDT DTL Ketone, U 10(A) Negative mg/dL 05/18/2023 6:25 PM CDT DTL Glucose, U 70(A) Negative mg/dL 05/18/2023 6:25 PM CDT DTL Urine 05/18/2023 4:09 PM CDT 05/18/2023 5:23 PM CDT Dereje Mcwilliams M.D. LAB URINE ORDERABL ES [facility] [address] [place] [address] * pH, Urine (05/18/2023 4:09 PM CDT) pH, U 5.4 4.5 - 8.0 05/18/2023 6:1 6 PM CDT DT Urine 05/18/2023 4:09 PM CDT 05/18/2023 5:23 PM CDT Dereje Mcwilliams M.D. LAB URINE ORDERABL ES Performing Organization Address City/[facility]/ZIP Co de Phone Number [facility] [address] [place], [place] [phone] [place] [address] 200 [place] [address] * Osmolality, Urine (05/18/2023 4:09 PM CDT) Osmolality, U 716 150 - 1150 mOsm/kg 05/18/2023 6:16 PM CDT DT Urine 05/18/2023 4:09 PM CDT 05/18/2023 5:23 PM CDT Dereje Mcwilliams M.D. LAB URINE ORDERABL ES Performing Organization Address City/[facility]/ZIP Co de Phone Number [facility] [address] [place], [place] [id number] [place] [address] [address] [place] [address] * Microscopic Automated (05/18/2023 4:09 PM CDT) Microscopy Normal 05/18/2023 6:25 PM CDT DTL WBC 1-3 /hpf 05/18/2023 6:25 PM CDT DTL Comment: ----REFERENCE VALUE---- 1-3 ??(Males) 1-10 (Females) Casts, Hyaline 1-3 /lpf 05/18/2023 6:25 PM CDT DTL Squamous Epithelial Cells, U 1-3 /hpf 05/18/2023 6:25 PM CDT DTL Urine 05/18/2023 4:09 PM CDT 05/18/2023 5:23 PM CDT Dereje Mcwilliams M.D. LAB URINE ORDERABL ES Performing Organization Address City/[facility] Co de Phone Number [facility] [address] [place] [address], [facility] [address] [address] * (ABNORMAL) Urinalysis with Microscopic: Urine, Midstream (05/18/2023 4:09 PM CDT) Source Urine, Urine, Midstream 05/18/2023 5:23 PM CDT DTL Color, U Yellow 05/18/2023 5:23 PM CDT DTL Clarity, U Clear 05/18/2023 5:23 PM CDT DTL Protein, U 28(H) <26 mg/dL 05/18/2023 6:17 PM CDT DTL Protein/Osmol ality 0.39 <0.42 ratio 05/18/2023 6:17 PM CDT DTL Predicted 24 HR Protein, U 385(H) <229 mg/24 h 05/18/2023 6:17 PM CDT DTL Predicted Range 122-1213 mg/24 h 05/18/2023 6:17 PM CDT DTL Urine (Urine, Midstream) 05/18/2023 4:09 PM CDT 05/18/2023 5:23 PM CDT Dereje Mcwilliams M.D. LAB URINE ORDERABL ES [facility] [address] [place] [address], [facility] DTL [facility] [address] [place] [address] * (ABNORMAL) Glucose, POCT (05/18/2023 12:36 PM CDT) Glucose, POCT, B 204(H) 70 - 140 mg/dL 05/18/2023 12:38 PM CDT PCDE Site Capillary 05/18/2023 12:38 PM CDT PCDE Blood 05/18/2023 12:3 6 PM CDT 05/18/2023 12:38 PM CDT Unknown Provider LAB POCT ORDERABLES- MANUAL POC [facility] [address] [place] [address], [facility] PCDE [facility] POC [address] [place] [address] * (ABNORMAL) Glucose, POCT (05/18/2023 9:37 AM CDT) Glucose, POCT, B 207(H) 70 - 140 mg/dL 05/18/2023 9:39 AM CDT PCDE Site Capillary 05/18/2023 9:39 AM CDT PCDE Last Intake 3-4 hours 05/18/2023 9:39 AM CDT PCDE Blood 05/18/2023 9:37 AM CDT 05/18/2023 9:39 AM CDT Unknown Provider LAB POCT ORDERABLES- MANUAL POC [facility] [address] [place] [address], [facility] PCDE [facility] POC [address] [place] [address] * (ABNORMAL) Glucose 6 Phosphate Dehydrogenase Enzyme Activity (05/18/2023 6:04 AM CDT) G6PD Enzyme Activity, B 12.4(H) 8.0 - 11.9 U/g Hb 05/20/2023 2:28 PM CDT DTL Comment: Lrtgyhp-6-Msunsihak Dehydrogenase (G6PD) deficiency is classified according to WHO criteria based on enzyme activity level but accurate classification requires correlation with clinical and possibly genetic data. Enzyme levels less than 10% of mean normal (less than 1.0 U/g Hb) are found in WHO class I (chronic) and class II (episodic) variants. Levels between 10 and 60% (1.0 to 6.0 U/g Hb) can be seen in class III (episodic) variants or female carrier states and genotyping can be useful in this range. Levels greater than 60% (greater than 6.0 U/g Hb) are considered sufficient and are seen in normal persons, female carrier states, or G6PD variants with subclinical effect (WHO class IV). Note: G6PD deficiency can be masked in the setting of reticulocytosis, markedly elevated WBCs or recent transfusion. If any of these are present in the setting of , chronic or episodic jaundice/anemia, genotyping is recommended. If desired, please order G6PDB (G6PD Full Gene Sequencing). ----ADDITIONAL INFORMATION---- This test was developed and its performance characteristics determined by [facility] in a manner consistent with CLIA requirements. This test has not been cleared or approved by the U.S. Food and Drug Administration. Blood (Blood, Venous) 05/18/2023 6:04 AM CDT 05/18/2023 4:51 PM CDT Jose Dalal M.D. LAB BLOOD ADD-ON [facility] [address] [place] [address], [facility] [address] [place] [address] * Phosphorus Inorganic (05/18/2023 6:04 AM CDT) Phosphorus (Inorganic), S 4.3 2.5 - 4.5 mg/dL 05/18/2023 1:50 PM CDT DTL Blood (Blood, Venous) 05/18/2023 6:04 AM CDT 05/18/2023 1:23 PM CDT Jose Dalal M.D. LAB BLOOD ADD-ON [facility] [address] [place] [address] * LD (Lactate Dehydrogenase) (05/18/2023 6:04 AM CDT) [facility] LD 203 122 - 222 U/L 05/18/2023 6:56 AM CDT DTL Blood (Blood, Venous) 05/18/2023 6:04 AM CDT 05/18/2023 6:36 AM CDT Molly Perez M.D. LAB BLOOD NON ADD-ON Performing Organization Address City/[facility]/ZIP Co de Phone Number [facility] [address] [place] [address] * Uric Acid (05/18/2023 6:04 AM CDT) [facility] Uric Acid, S 6.8 3.7 - 8.0 mg/dL 05/18/2023 7:42 AM CDT DT Blood (Blood, Venous) 05/18/2023 6:04 AM CDT 05/18/2023 6:27 AM CDT Tai Wolf M.D., M.S. LAB BLOOD ADD-O N Performing Organization Address City/[facility]/ZIP Co de Phone Number [facility] [address] [place] [address] * (ABNORMAL) CBC no call back, reflex T/S HGB <8 (05/18/2023 6:04 AM CDT) [facility] Hemoglobin 11.1(L) 13.2 - 16.6 g/dL 05/18/2023 6:21 AM CDT DTL Hematocrit 35.5(L) 38.3 - 48.6 % 05/18/2023 6:21 AM CDT DTL Erythrocytes 4.48 4.35 - 5.65 x10(12)/L 05/18/2023 6:21 AM CDT DTL MCV 79.2 78.2 - 97.9 fL 05/18/2023 6:21 AM CDT DTL RBC Distrib Width 19.2(H) 11.8 - 14.5 % 05/18/2023 6:21 AM CDT DTL Platelet Count 345(H) 135 - 317 x10(9)/L 05/18/2023 6:21 AM CDT DTL Leukocytes 3.8 3.4 - 9.6 x10(9)/L 05/18/2023 6:21 AM CDT DTL Neutrophils 2.96 1.56 - 6.45 x10(9)/L 05/18/2023 6:21 AM CDT DHPM Lymphocytes 0.69(L) 0.95 - 3.07 x10(9)/L 05/18/2023 6:21 AM CDT DTL Monocytes 0.15(L) 0.26 - 0.81 x10(9)/L 05/18/2023 6:21 AM CDT DTL Eosinophils <0.03 0.03 - 0.48 x10(9)/L 05/18/2023 6:21 AM CDT DTL Basophils <0.03 0.01 - 0.08 x10(9)/L 05/18/2023 6:21 AM CDT DTL Blood (Blood, Venous) 05/18/2023 6:04 AM CDT 05/18/2023 6:14 AM CDT Tai Wolf M.D., M.S. LAB BLOOD NON A DD-ON [facility] [address] [place] [address], [facility] DTL [facility] [address] [place] [address] DHPM [facility] [address] [place] [address] * Potassium (05/18/2023 6:04 AM CDT) Pathologist [facility] Potassium, S 4.6 3.6 - 5.2 mmol/L 05/18/2023 7:42 AM CDT DT Blood (Blood, Venous) 05/18/2023 6:04 AM CDT 05/18/2023 6:27 AM CDT Tai Wolf M.D., M.S. LAB BLOOD ADD-O N [facility] [address] [place] [address] * Magnesium (05/18/2023 6:04 AM CDT) [facility] Magnesium, S 2.0 1.7 - 2.3 mg/dL 05/18/2023 7:42 AM CDT DT Blood (Blood, Venous) 05/18/2023 6:04 AM CDT 05/18/2023 6:27 AM CDT Tai Wolf M.D., M.S. LAB BLOOD ADD-O N [facility] [address] [place] [address] * (ABNORMAL) Cystatin C with Estimated GFR (05/18/2023 6:04 AM CDT) [facility] eGFR by Cystatin C 37(L) >60 mL/min/BSA 05/18/2023 7:42 AM CDT DT Comment: Estimated GFR calculated using the CKD-EPI [...] lower with the new assay. Cystatin C 1.69(H) 0.67 - 1.21 mg/L 05/18/2023 7:42 AM CDT DTL Blood (Blood, Venous) 05/18/2023 6:04 AM CDT 05/18/2023 6:27 AM CDT Tai Wolf M.D., M.S. LAB BLOOD ADD-O N Performing Organization Address City/[facility]/ZIP Co de Phone Number [facility] [address] [place], [place] [phone] [place] [address] DTL [facility] [address] [place] [address] * (ABNORMAL) Glucose, POCT (05/17/2023 10:34 PM CDT) Glucose, POCT, B 187(H) 70 - 140 mg/dL 05/17/2023 10:43 PM CDT PCDE Site Capillary 05/17/2023 10:43 PM CDT PCDE Last Intake NPO 05/17/2023 10:43 PM CDT PCDE Blood 05/17/2023 10:3 4 PM CDT 05/17/2023 10:43 PM CDT Unknown Provider LAB POCT ORDERABLES- MANUAL Performing Organization Address City/[facility]/ZIP Co de Phone Number POC [facility] [address] [place] [address], [facility] PCDE [facility] POC [address] [place] [address] * (ABNORMAL) Glucose, POCT (05/17/2023 4:44 PM CDT) Glucose, POCT, B 151(H) 70 - 140 mg/dL 05/17/2023 4:49 PM CDT PCDE Site Capillary 05/17/2023 4:49 PM CDT PCDE Last Intake 1-2 hours 05/17/2023 4:49 PM CDT PCDE Blood 05/17/2023 4:44 PM CDT 05/17/2023 4:50 PM CDT Unknown Provider LAB POCT ORDERABLES- MANUAL POC [facility] [address] [place] [address], [facility] PCDE [facility] POC [address] [place] [address] * (ABNORMAL) Glucose, POCT (05/17/2023 12:51 PM CDT) Glucose, POCT, B 144(H) 70 - 140 mg/dL 05/17/2023 12:56 PM CDT PCDE Site Capillary 05/17/2023 12:56 PM CDT PCDE Last Intake ContTubFdg 05/17/2023 12:56 PM CDT PCDE Blood 05/17/2023 12:5 1 PM CDT 05/17/2023 12:56 PM CDT Unknown Provider LAB POCT ORDERABLES- MANUAL POC [facility] [address] [place] [address], [facility] PCDE [facility] POC [address] [place] [address] * (ABNORMAL) Glucose, POCT (05/17/2023 9:06 AM CDT) Glucose, POCT, B 153(H) 70 - 140 mg/dL 05/17/2023 9:13 AM CDT PCDE Site Capillary 05/17/2023 9:13 AM CDT PCDE Last Intake > 4 hours 05/17/2023 9:13 AM CDT PCDE Blood 05/17/2023 9:06 AM CDT 05/17/2023 9:13 AM CDT Unknown Provider LAB POCT ORDERABLES- MANUAL POC [facility] [address] [place] [address], [facility] PCDE [facility] POC [address] [facility] [place] [address] * DX Abdomen Portable Anterior Posterior 1 View (05/17/2023 7:51 AM CDT) Anatomical Region Laterality Modality Abdomen, Abdominal RST LOS, Abdominal ARZ LOS, Abdominal FLA LOS N/A Digital Radiography 05/17/2023 8:03 AM CDT Impressions 05/17/2023 9:08 AM CDT Since 05/11/2023, there has been replacement of the previous enteric tube with new tubing now coiled in the stomach and tip in the distal stomach. Vascular stents in the left upper quadrant. Narrative 05/17/2023 9:08 AM CDT EXAM: ??DX ABDOMEN PORTABLE ANTERIOR POSTERIOR 1 VIEW Procedure Note Jose Ames M.D. - 05/17/2023 EXAM: DX ABDOMEN PORTABLE ANTERIOR POSTERIOR 1 VIEW IMPRESSION: Since 05/11/2023, there has been replacement of the previous enteric tubewith new tubing now coiled in the stomach and tip in the distal stomach. Vascularstents in the left upper quadrant. Adryan Dias M.D. IMG DIAGNOSTIC IMAGI NG PROCEDURES * LD (Lactate Dehydrogenase) (05/17/2023 7:29 AM CDT) [facility] LD 191 122 - 222 U/L 05/17/2023 8:24 AM CDT DTL Blood 05/17/2023 7:29 AM CDT 05/17/2023 8:07 AM CDT Kenia Bhandari M.D. LAB BLOOD NON ADD-ON [facility] [address] [place] [address], [place] [facility] [address] [place] [address] * Uric Acid (05/17/2023 5:59 AM CDT) [facility] Uric Acid, S 6.6 3.7 - 8.0 mg/dL 05/17/2023 6:48 AM CDT DTL Blood (Blood, Venous) 05/17/2023 5:59 AM CDT 05/17/2023 6:32 AM CDT Kenia Bhandari M.D. LAB BLOOD ADD-ON Performing Organization Address City/[facility]/ZIP Co de Phone Number [facility] [address] [place], [place] [id number] [place] [place] [address] [address] [place] [address] * Phosphorus Inorganic (05/17/2023 5:59 AM CDT) Phosphorus (Inorganic), S 4.4 2.5 - 4.5 mg/dL 05/17/2023 6:48 AM CDT DTL Blood (Blood, Venous) 05/17/2023 5:59 AM CDT 05/17/2023 6:32 AM CDT Kenia Bhandari M.D. LAB BLOOD ADD-ON Performing Organization Address City/[facility]/ZIP Co de Phone Number [facility] [address] [place], [place] [id number] [place] [address] 200 [place] [address] * Magnesium (05/17/2023 5:59 AM CDT) Magnesium, S 1.8 1.7 - 2.3 mg/dL 05/17/2023 6:48 AM CDT DTL Blood (Blood, Venous) 05/17/2023 5:59 AM CDT 05/17/2023 6:32 AM CDT Kenia Bhandari M.D. LAB BLOOD ADD-ON [facility] [address] [place], [place] [address] [address] [place] [address] * (ABNORMAL) CBC with Differential, Blood (05/17/2023 5:59 AM CDT) [facility] Hemoglobin 10.9(L) 13.2 - 16.6 g/dL 05/17/2023 6:30 AM CDT DHPM Hematocrit 36.4(L) 38.3 - 48.6 % 05/17/2023 6:30 AM CDT DHPM Erythrocytes 4.52 4.35 - 5.65 x10(12)/L 05/17/2023 6:30 AM CDT DHPM MCV 80.5 78.2 - 97.9 fL 05/17/2023 6:30 AM CDT DHPM RBC Distrib Width 19.0(H) 11.8 - 14.5 % 05/17/2023 6:30 AM CDT DHPM Platelet Count 219 135 - 317 x10(9)/L 05/17/2023 6:30 AM CDT DHPM Leukocytes 4.6 3.4 - 9.6 x10(9)/L 05/17/2023 6:30 AM CDT DHPM Neutrophils 3.85 1.56 - 6.45 x10(9)/L 05/17/2023 6:30 AM CDT DHPM Lymphocytes 0.47(L) 0.95 - 3.07 x10(9)/L 05/17/2023 6:30 AM CDT DHPM Monocytes 0.24(L) 0.26 - 0.81 x10(9)/L 05/17/2023 6:30 AM CDT DHPM Eosinophils <0.03 0.03 - 0.48 x10(9)/L 05/17/2023 6:30 AM CDT DHPM Basophils <0.03 0.01 - 0.08 x10(9)/L 05/17/2023 6:30 AM CDT DHPM Blood (Blood, Venous) 05/17/2023 5:59 AM CDT 05/17/2023 6:28 AM CDT Kenia Bhandari M.D. LAB BLOOD ADD-ON [facility] [address] [place] [address], [facility] [address] [place] [address] * (ABNORMAL) Basic Metabolic Panel (05/17/2023 5:59 AM CDT) Potassium, S 4.8 3.6 - 5.2 mmol/L 05/17/2023 6:48 AM CDT DTL Sodium, S 138 135 - 145 mmol/L 05/17/2023 6:48 AM CDT DTL Chloride, S 102 98 - 107 mmol/L 05/17/2023 6:48 AM CDT DTL Bicarbonate, S 23 22 - 29 mmol/L 05/17/2023 6:48 AM CDT DTL Anion Gap 13 7 - 15 05/17/2023 6:48 AM CDT DTL BUN (Blood Urea Nitrogen), S 17 8 - 24 mg/dL 05/17/2023 6:48 AM CDT DTL Creatinine 0.92 0.74 - 1.35 mg/dL 05/17/2023 6:48 AM CDT DTL Estimated GFR (eGFR) 87 >=60 mL/min/BSA 05/17/2023 6:48 AM CDT DTL Comment: Estimated GFR calculated using the 2020 CKD_EPI creatinine equation. Calcium, Total, S 8.5(L) 8.8 - 10.2 mg/dL 05/17/2023 6:48 AM CDT DTL Glucose, S 156(H) 70 - 140 mg/dL 05/17/2023 6:48 AM CDT DTL Blood (Blood, Venous) 05/17/2023 5:59 AM CDT 05/17/2023 6:32 AM CDT Kenia Bhandari M.D. LAB BLOOD ADD-ON [facility] [address] [place] [address], [place] DTL [facility] [address] [place] [address] * (ABNORMAL) Cystatin C with Estimated GFR (05/17/2023 5:59 AM CDT) eGFR by Cystatin C 59(L) >60 mL/min/BSA 05/17/2023 6:48 AM CDT DTL Comment: Estimated GFR calculated [...] lower with the new assay. Cystatin C 1.18 0.67 - 1.21 mg/L 05/17/2023 6:48 AM CDT DTL Blood (Blood, Venous) 05/17/2023 5:59 AM CDT 05/17/2023 6:32 AM CDT Kenia Bhandari M.D. LAB BLOOD ADD-ON [id number] [place] [address] [address] * (ABNORMAL) Hepatic Function Panel (05/17/2023 5:51 AM CDT) Bilirubin, Total, S 0.2 <=1.2 mg/dL 05/17/2023 12:21 PM CDT DTL Bilirubin, Direct, S <0.2 0.0 - 0.3 mg/dL 05/17/2023 12:21 PM CDT DTL Aspartate Aminotransferase (AST), S 19 8 - 48 U/L 05/17/2023 12:21 PM CDT DTL Alanine Aminotransferase (ALT), S 12 7 - 55 U/L 05/17/2023 12:21 PM CDT DTL Alkaline Phosphatase, S 87 40 - 129 U/L 05/17/2023 12:21 PM CDT DTL Albumin, S 3.1(L) 3.5 - 5.0 g/dL 05/17/2023 12:21 PM CDT DTL Protein, Total, S 5.1(L) 6.3 - 7.9 g/dL 05/17/2023 12:21 PM CDT DTL Blood (Blood, Venous) 05/17/2023 5:51 AM CDT 05/17/2023 11:38 AM CDT Jose Dalal M.D. LAB BLOOD ADD-ON [facility] [address] [place] [address], [facility] DTL [facility] 200 [place] [address] * (ABNORMAL) Glucose, POCT (05/16/2023 9:53 PM CDT) Glucose, POCT, B 146(H) 70 - 140 mg/dL 05/16/2023 10:31 PM CDT PCDE Blood 05/16/2023 9:53 PM CDT 05/16/2023 10:31 PM CDT Unknown Provider LAB POCT ORDERABLES- MANUAL Performing Organization Address City/[facility]/ZIP Co de Phone Number POC [facility] [address] [place] [address], [facility] PCDE [facility] POC [address] [place] [address] * Glucose, POCT (05/16/2023 5:14 PM CDT) Glucose, POCT, B 119 70 - 140 mg/dL 05/16/2023 5:17 PM CDT PCLX Site Capillary 05/16/2023 5:17 PM CDT PCLX Last Intake ContTubFdg 05/16/2023 5:17 PM CDT PCLX Blood 05/16/2023 5:14 PM CDT 05/16/2023 5:17 PM CDT Unknown Provider LAB POCT ORDERABLES- MANUAL POC [facility] [address] [place] [address], [facility] PCLX [facility] POC [address] [place] [address] * SARS Coronavirus 2, PCR Rapid Symptomatic (05/16/2023 2:59 PM CDT) SARS CoV-2, PCR, Rapid, V Undetected Undetected 05/16/2023 3:34 PM CDT STMA Comment: ----ADDITIONAL INFORMATION---- This RT-PCR test was performed using the Jesus SARS-CoV-2 and Influenza A/B Reagent assay from [employer], which has received Emergency Use Authorization(EUA) by the U.S. Food and Drug Administration. Fact sheets for this Emergency Use Authorization (EUA) assay can be found at the following links: For Healthcare Providers: https://www.fda.gov/media/059132/download For Patients: https://www.fda.gov/media/595880/download SARS Coronavirus 2, Rapid, Source Swab, Nasopharynx 05/16/2023 3:06 PM CDT STMA Swab (Nasopharynx) 05/16/2023 2:59 PM CDT 05/16/2023 3:06 PM CDT Kenia Bhandari M.D. LAB MICROBIOLOGY - G ENERAL ORDERABLES [facility] [address] [place] [address], [facility] [address] [place] [address] * Glucose, POCT (05/16/2023 2:13 PM CDT) Pathologist [facility] Glucose, POCT, B 129 70 - 140 mg/dL 05/16/2023 2:15 PM CDT PCLX Site Capillary 05/16/2023 2:15 PM CDT PCLX Last Intake 1-2 hours 05/16/2023 2:15 PM CDT PCLX Blood 05/16/2023 2:13 PM CDT 05/16/2023 2:16 PM CDT Unknown Provider LAB POCT ORDERABLES- MANUAL POC [facility] [address] [place] [address], [place] PCLX [facility] POC [address] [place] [address] * Glucose, POCT (05/16/2023 8:36 AM CDT) Pathologist [facility] Glucose, POCT, B 118 70 - 140 mg/dL 05/16/2023 8:40 AM CDT PCLX Blood 05/16/2023 8:36 AM CDT 05/16/2023 8:40 AM CDT Unknown Provider LAB POCT ORDERABLES- MANUAL POC [facility] [address] [place] [address], [facility] PCLX [facility] POC [address] [place] [address] * (ABNORMAL) CBC with Differential, Blood (05/16/2023 4:35 AM CDT) Pathologist [facility] Hemoglobin 9.7(L) 13.2 - 16.6 g/dL 05/16/2023 5:26 AM CDT DTL Hematocrit 32.6(L) 38.3 - 48.6 % 05/16/2023 5:26 AM CDT DTL Erythrocytes 4.05(L) 4.35 - 5.65 x10(12)/L 05/16/2023 5:26 AM CDT DTL MCV 80.5 78.2 - 97.9 fL 05/16/2023 5:26 AM CDT DTL RBC Distrib Width 19.2(H) 11.8 - 14.5 % 05/16/2023 5:26 AM CDT DTL Platelet Count 249 135 - 317 x10(9)/L 05/16/2023 5:26 AM CDT DTL Leukocytes 4.8 3.4 - 9.6 x10(9)/L 05/16/2023 5:26 AM CDT DTL Neutrophils 3.24 1.56 - 6.45 x10(9)/L 05/16/2023 5:26 AM CDT DHPM Lymphocytes 0.68(L) 0.95 - 3.07 x10(9)/L 05/16/2023 5:26 AM CDT DTL Monocytes 0.46 0.26 - 0.81 x10(9)/L 05/16/2023 5:26 AM CDT DTL Eosinophils 0.34 0.03 - 0.48 x10(9)/L 05/16/2023 5:26 AM CDT DTL Basophils 0.05 0.01 - 0.08 x10(9)/L 05/16/2023 5:26 AM CDT DTL Blood (Blood, Venous) 05/16/2023 4:35 AM CDT 05/16/2023 5:18 AM CDT Kenia Bhandari M.D. LAB BLOOD ADD-ON Performing Organization Address City/[facility]/ZIP Co de Phone Number [facility] [address] [place], [place] [id number] [place] [address] [address] [place], [place] [phone] [place] [address] [address] [place] [address] * (ABNORMAL) Phosphorus Inorganic (05/16/2023 4:35 AM CDT) Phosphorus (Inorganic), S 2.2(L) 2.5 - 4.5 mg/dL 05/16/2023 6:21 AM CDT DTL Blood (Blood, Venous) 05/16/2023 4:35 AM CDT 05/16/2023 6:03 AM CDT Kenia Bhandari M.D. LAB BLOOD ADD-ON Performing Organization Address City/[facility]/ZIP Co de Phone Number [facility] [address] [place], [place] [id number] [place] [address] [address] [place] [address] * Magnesium (05/16/2023 4:35 AM CDT) Magnesium, S 1.7 1.7 - 2.3 mg/dL 05/16/2023 6:21 AM CDT DTL Blood (Blood, Venous) 05/16/2023 4:35 AM CDT 05/16/2023 6:03 AM CDT Kenia Bhandari M.D. LAB BLOOD ADD-ON [facility] [address] [place], [place] [id number] [place] [address] DTL [facility] 200 [place] [address] * (ABNORMAL) Basic Metabolic Panel (05/16/2023 4:35 AM CDT) Pathologist [facility] Potassium, S 4.3 3.6 - 5.2 mmol/L 05/16/2023 6:21 AM CDT DTL Sodium, S 138 135 - 145 mmol/L 05/16/2023 6:21 AM CDT DTL Chloride, S 103 98 - 107 mmol/L 05/16/2023 6:21 AM CDT DTL Bicarbonate, S 24 22 - 29 mmol/L 05/16/2023 6:21 AM CDT DTL Anion Gap 11 7 - 15 05/16/2023 6:21 AM CDT DTL BUN (Blood Urea Nitrogen), S 14 8 - 24 mg/dL 05/16/2023 6:21 AM CDT DTL Creatinine 1.02 0.74 - 1.35 mg/dL 05/16/2023 6:21 AM CDT DTL Estimated GFR (eGFR) 77 >=60 mL/min/BSA 05/16/2023 6:21 AM CDT DTL Comment: Estimated GFR calculated using the 2020 CKD_EPI creatinine equation. Calcium, Total, S 8.2(L) 8.8 - 10.2 mg/dL 05/16/2023 6:21 AM CDT DTL Glucose, S 102 70 - 140 mg/dL 05/16/2023 6:21 AM CDT DTL Blood (Blood, Venous) 05/16/2023 4:35 AM CDT 05/16/2023 6:03 AM CDT Kenia Bhandari M.D. LAB BLOOD ADD-ON [facility] [address] [place] [address], [facility] DTL [facility] [address] [place] [address] * (ABNORMAL) Cystatin C with Estimated GFR (05/16/2023 4:35 AM CDT) eGFR by Cystatin C 60(L) >60 mL/min/BSA 05/16/2023 6:21 AM CDT DTL Comment: Estimated GFR calculated [...] lower with the new assay. Cystatin C 1.16 0.67 - 1.21 mg/L 05/16/2023 6:21 AM CDT DTL Blood (Blood, Venous) 05/16/2023 4:35 AM CDT 05/16/2023 6:03 AM CDT Kenia Bhandari M.D. LAB BLOOD ADD-ON [facility] [address] [place] [address], [facility] [address] [place] [address] * Glucose, POCT (05/15/2023 9:03 PM CDT) Pathologist [facility] Glucose, POCT, B 110 70 - 140 mg/dL 05/15/2023 9:18 PM CDT PCLX Site Capillary 05/15/2023 9:18 PM CDT PCLX Last Intake ContTubFdg 05/15/2023 9:18 PM CDT PCLX Blood 05/15/2023 9:03 PM CDT 05/15/2023 9:18 PM CDT Unknown Provider LAB POCT ORDERABLES- MANUAL POC [facility] [address] [place] [address], [facility] PCLX [facility] POC [address] [place] [address] * Glucose, POCT (05/15/2023 4:47 PM CDT) Glucose, POCT, B 119 70 - 140 mg/dL 05/15/2023 4:54 PM CDT PCLX Site Capillary 05/15/2023 4:54 PM CDT PCLX Last Intake ContTubFdg 05/15/2023 4:54 PM CDT PCLX Blood 05/15/2023 4:47 PM CDT 05/15/2023 4:55 PM CDT Unknown Provider LAB POCT ORDERABLES- MANUAL Performing Organization Address City/[facility]/ZIP Co de Phone Number [facility] [address] [place] [address], [facility] PCLX [facility] POC [address] [place] [address] * Phosphorus Inorganic (05/15/2023 4:21 PM CDT) Pathologist [facility] Phosphorus (Inorganic), S 2.5 2.5 - 4.5 mg/dL 05/15/2023 5:16 PM CDT DTL Blood (Blood, Venous) 05/15/2023 4:21 PM CDT 05/15/2023 4:59 PM CDT Kenia Bhandari M.D. LAB BLOOD ADD-ON [facility] [address] [place] [address], [facility] [address] [place] [address] * (ABNORMAL) Magnesium (05/15/2023 4:21 PM CDT) Magnesium, S 1.5(L) 1.7 - 2.3 mg/dL 05/15/2023 5:16 PM CDT DTL Blood (Blood, Venous) 05/15/2023 4:21 PM CDT 05/15/2023 4:59 PM CDT Kenia Bhandari M.D. LAB BLOOD ADD-ON [facility] [address] [place] [address], [facility] DTL [facility] [address] [place] [address] * (ABNORMAL) Basic Metabolic Panel (05/15/2023 4:21 PM CDT) Pathologist [facility] Potassium, S 4.3 3.6 - 5.2 mmol/L 05/15/2023 5:16 PM CDT DTL Sodium, S 139 135 - 145 mmol/L 05/15/2023 5:16 PM CDT DTL Chloride, S 103 98 - 107 mmol/L 05/15/2023 5:16 PM CDT DTL Bicarbonate, S 26 22 - 29 mmol/L 05/15/2023 5:16 PM CDT DTL Anion Gap 10 7 - 15 05/15/2023 5:16 PM CDT DTL BUN (Blood Urea Nitrogen), S 17 8 - 24 mg/dL 05/15/2023 5:16 PM CDT DTL Creatinine 1.06 0.74 - 1.35 mg/dL 05/15/2023 5:16 PM CDT DTL Estimated GFR (eGFR) 74 >=60 mL/min/BSA 05/15/2023 5:16 PM CDT DTL Comment: Estimated GFR calculated using the 2020 CKD_EPI creatinine equation. Calcium, Total, S 8.2(L) 8.8 - 10.2 mg/dL 05/15/2023 5:16 PM CDT DTL Glucose, S 106 70 - 140 mg/dL 05/15/2023 5:16 PM CDT DTL Blood (Blood, Venous) 05/15/2023 4:21 PM CDT 05/15/2023 4:59 PM CDT Kenia Bhandari M.D. LAB BLOOD ADD-ON [facility] [address] [place] [address], [facility] DTL [facility] [address] [place] [address] * (TTE) 2D ECHO DOPPLER COLOR (05/15/2023 2:28 PM CDT) [facility] Ejection Fraction 75 MC CV EIMS Mid-Ascending Aorta 33 MC CV EIMS LV Mass Index 91 MC CV EIMS LV End-Diastolic Diameter 44 MC CV EIMS LV End-Systolic Diameter 22 MC CV EIMS Left ventricular stroke volume index 42 MC CV EIMS Cardiac Output 6.38 MC CV EIMS Cardiac Index 3.22 MC CV EIMS LV Global Longitudinal Strain -20 MC CV EIMS LV Interventricular Septal Wall Thickness 10 MC CV EIMS LV Posterior Wall Thickness 13 MC CV EIMS LV Relative Wall Thickness 59 MC CV EIMS Tricuspid Annular S? 0.2 MC CV EIMS TR Vmax 3.09 MC CV EIMS RA Pressure 5 MC CV EIMS RV Systolic Pressure 43 MC CV EIMS AV mean gradient 14 MC CV EIMS Aortic valve area 1.54 MC CV EIMS Aortic Valve Area Index 0.78 MC CV EIMS Aortic Valve Dimensionless Index 0.37 MC CV EIMS MV mean gradient 8 MC CV EIMS LA Volume Index 67 MC CV EIMS Aortic Valve Systolic Peak Velocity 2.6 MC CV EIMS Anatomical Region Laterality Modality Echocardiography 05/15/2023 12:3 3 PM CDT Impressions 05/15/2023 3:07 PM CDT Echo performed. LEFT VENTRICLE:Normal left ventricular chamber size. Abnormal left ventricular geometry with ??concentric remodeling (increased wall thickness to cavity ratio). Calculated 2-D linear left ventricular ejection fraction 75%. No regional wall motion abnormalities. Left ventricular stroke volume index 42 ml/m2. Left ventricular cardiac index 3.22 l/min/m2. Strain imaging examination performed to assess left ventricular function. Global averaged left ventricular longitudinal peak systolic strain is normal at -20% (normal = more negative than -18%). Indeterminate left ventricular filling pressure. RIGHT VENTRICLE:Mildly enlarged right ventricular chamber size by visual estimate. Mildly reduced right ventricular systolic function. Estimated right ventricular systolic pressure 43 mmHg (right atrial pressure of 5 mmHg). ATRIA:Severely enlarged left atrial size. Left atrial volume index 67 ml/m2. Enlarged right atrial size by visual estimate. CARDIAC VALVES:Trileaflet aortic valve , likely. Mild-moderate calcific aortic valve stenosis. Aortic valve systolic mean Doppler gradient 14 mmHg. Aortic valve area by Doppler 1.54 cm2. No aortic valve regurgitation. Calcified mitral annulus. Moderate ?? mitral valve stenosis. Mitral valve diastolic mean Doppler gradient 8 mmHg (heart rate 74 BPM). Mitral valve area by continuity equation 1.47 cm2. Trivial mitral valve regurgitation. Normal pulmonary valve. Normal pulmonary valve systolic velocities. Trivial pulmonary valve regurgitation. Normal tricuspid valve. Trivial tricuspid valve regurgitation. OTHER ECHO FINDINGS:Normal inferior vena cava size with normal inspiratory collapse (>50%). Normal mid ascending aorta diameter of 33 mm. Upper limit of normal of the mid ascending aorta, for age, sex and BSA is 42 mm. No abdominal aortic aneurysm. Normal abdominal aorta Doppler flow pattern. No atrial level shunt by color flow imaging. No intracardiac mass or thrombus, but the left atrial appendage cannot be visualized adequately with transthoracic echo to exclude thrombus in this location. Prominent ??epicardial fat layer. No ??pericardial effusion. For the complete report, see the Order-Level Documents. Narrative 05/15/2023 3:07 PM CDT For the complete report, see the Order-Level Documents. Hemodynamics Heart Rate: 76 BPM Blood Pressure: 115 / 56 mmHg ECG: Sinus rhythm Final Impressions 1. Calcified mitral annulus extending to the leaflets. Moderate mitral valve stenosis. ??Mitral valve mean diastolic gradient 8 mmHg (HR 74 bpm). Mitral valve area by continuity equation 1.47 cm2. Trivial mitral regurgitation. 2. Mild-moderate calcific aortic valve stenosis (visually moderately stenotic with reduced opening of the non- and left coronary cusps), systolic mean Doppler gradient 14 mmHg, valve area by Doppler 1.54 cm2 . DI 0.37. No aortic regurgitation. 3. Normal left ventricular chamber size, no regional wall motion abnormalities, calculated 2-D linear ejection fraction 75%, global averaged longitudinal peak systolic strain is normal at -20% (normal = more negative than -18%). 4. Left ventricular cardiac index 3.22 l/min/m2. 5. Mildly enlarged right ventricular chamber size, mildly reduced systolic function (visually), estimated right ventricular systolic pressure 43 mmHg (systolic blood pressure 115 mmHg). 6. Severely enlarged left atrial size. 7. Normal inferior vena cava size with normal inspiratory collapse (>50%). 8. No ??pericardial effusion. Procedure Note Kenia Ruelas M.D., Ph.D. - 05/15/2023 For the complete report, see the Order-Level Documents. Hemodynamics Heart Rate: 76 BPM Blood Pressure: 115 / 56 mmHg ECG: Sinus rhythm Final Impressions 1. Calcified mitral annulus extending to the leaflets. Moderate mitralvalve stenosis. Mitral valve mean diastolic gradient 8 mmHg (HR 74 bpm).Mitral valve area by continuity equation 1.47 cm2. Trivial mitralregurgitation. 2. Mild-moderate calcific aortic valve stenosis (visually moderatelystenotic with reduced opening of the non- and left coronary cusps),systolic mean Doppler gradient 14 mmHg, valve area by Doppler 1.54 cm2 .DI 0.37. No aortic regurgitation. 3. Normal left ventricular chamber size, no regional wall motionabnormalities, calculated 2-D linear ejection fraction 75%, globalaveraged longitudinal peak systolic strain is normal at -20% (normal =more negative than -18%). 4. Left ventricular cardiac index 3.22 l/min/m2. 5. Mildly enlarged right ventricular chamber size, mildly reduced systolicfunction (visually), estimated right ventricular systolic pressure 43 mmHg(systolic blood pressure 115 mmHg). 6. Severely enlarged left atrial size. 7. Normal inferior vena cava size with normal inspiratory collapse(>50%). 8. No pericardial effusion. Findings Echo performed. LEFT VENTRICLE:Normal left ventricular chamber size. Abnormal leftventricular geometry with concentric remodeling (increased wall thicknessto cavity ratio). Calculated 2-D linear left ventricular ejection [id number]%. No regional wall motion abnormalities. Left ventricular stroke volumeindex 42 ml/m2. Left ventricular cardiac index 3.22 l/min/m2. Strainimaging examination performed to assess left ventricular function. Globalaveraged left ventricular longitudinal peak systolic strain is normal at-20% (normal = more negative than -18%). Indeterminate left ventricularfilling pressure. RIGHT VENTRICLE:Mildly enlarged right ventricular chamber size by visualestimate. Mildly reduced right ventricular systolic function. Estimatedright ventricular systolic pressure 43 mmHg (right atrial pressure of 5mmHg). ATRIA:Severely enlarged left atrial size. Left atrial volume index 67ml/m2. Enlarged right atrial size by visual estimate. CARDIAC VALVES:Trileaflet aortic valve , likely. Mild-moderate calcificaortic valve stenosis. Aortic valve systolic mean Doppler gradient 14mmHg. Aortic valve area by Doppler 1.54 cm2. No aortic valveregurgitation. Calcified mitral annulus. Moderate mitral valve stenosis.Mitral valve diastolic mean Doppler gradient 8 mmHg (heart rate 74 BPM).Mitral valve area by continuity equation 1.47 cm2. Trivial mitral valveregurgitation. Normal pulmonary valve. Normal pulmonary valve systolicvelocities. Trivial pulmonary valve regurgitation. Normal tricuspid valve.Trivial tricuspid valve regurgitation. OTHER ECHO FINDINGS:Normal inferior vena cava size with normal inspiratorycollapse (>50%). Normal mid ascending aorta diameter of 33 mm. Upper limitof normal of the mid ascending aorta, for age, sex and BSA is 42 mm. Noabdominal aortic aneurysm. Normal abdominal aorta Doppler flow pattern. Noatrial level shunt by color flow imaging. No intracardiac mass orthrombus, but the left atrial appendage cannot be visualized adequatelywith transthoracic echo to exclude thrombus in this location. Prominentepicardial fat layer. No pericardial effusion. For the complete report, see the Order-Level Documents. Kenia Bhandari M.D. CV ECHO PROCEDURES * Glucose, POCT (05/15/2023 12:21 PM CDT) Glucose, POCT, B 96 70 - 140 mg/dL 05/15/2023 12:24 PM CDT PCLX Site Capillary 05/15/2023 12:24 PM CDT PCLX Last Intake ContTubFdg 05/15/2023 12:24 PM CDT PCLX Blood 05/15/2023 12:2 1 PM CDT 05/15/2023 12:24 PM CDT Unknown Provider LAB POCT ORDERABLES- MANUAL POC [facility] [address] [place] [address], [facility] PCLX [facility] POC [address] [place] [address] * Glucose, POCT (05/15/2023 10:28 AM CDT) Glucose, POCT, B 92 70 - 140 mg/dL 05/15/2023 10:32 AM CDT PCLX Site Capillary 05/15/2023 10:32 AM CDT PCLX Last Intake ContTubFdg 05/15/2023 10:32 AM CDT PCLX Blood 05/15/2023 10:2 8 AM CDT 05/15/2023 10:32 AM CDT Unknown Provider LAB POCT ORDERABLES- MANUAL POC [facility] [address] [place] [address], [facility] PCLX [facility] POC [address] [place] [address] * Glucose, POCT (05/15/2023 8:10 AM CDT) Glucose, POCT, B 83 70 - 140 mg/dL 05/15/2023 8:16 AM CDT PCLX Site Capillary 05/15/2023 8:16 AM CDT PCLX Last Intake ContTubFdg 05/15/2023 8:16 AM CDT PCLX Blood 05/15/2023 8:10 AM CDT 05/15/2023 8:16 AM CDT Unknown Provider LAB POCT ORDERABLES- MANUAL Performing Organization Address City/[facility]/ZIP Co de Phone Number [facility] [address] [place] [address], [facility] PCLX [facility] POC [address] [place] [address] * Glucose, POCT (05/15/2023 6:48 AM CDT) Glucose, POCT, B 91 70 - 140 mg/dL 05/15/2023 6:52 AM CDT PCLX Site Capillary 05/15/2023 6:52 AM CDT PCLX Last Intake NPO 05/15/2023 6:52 AM CDT PCLX Blood 05/15/2023 6:48 AM CDT 05/15/2023 6:52 AM CDT Unknown Provider LAB POCT ORDERABLES- MANUAL POC [facility] [address] [place] [address], [facility] PCLX [facility] POC [address] [place] [address] * (ABNORMAL) CBC with Differential, Blood (05/15/2023 4:37 AM CDT) Hemoglobin 9.9(L) 13.2 - 16.6 g/dL 05/15/2023 5:36 AM CDT DHPM Hematocrit 33.7(L) 38.3 - 48.6 % 05/15/2023 5:36 AM CDT DHPM Erythrocytes 4.11(L) 4.35 - 5.65 x10(12)/L 05/15/2023 5:36 AM CDT DHPM MCV 82.0 78.2 - 97.9 fL 05/15/2023 5:36 AM CDT DHPM RBC Distrib Width 18.7(H) 11.8 - 14.5 % 05/15/2023 5:36 AM CDT DHPM Platelet Count 234 135 - 317 x10(9)/L 05/15/2023 5:36 AM CDT DHPM Leukocytes 5.4 3.4 - 9.6 x10(9)/L 05/15/2023 5:36 AM CDT DHPM Neutrophils 3.50 1.56 - 6.45 x10(9)/L 05/15/2023 5:36 AM CDT DHPM Lymphocytes 1.06 0.95 - 3.07 x10(9)/L 05/15/2023 5:36 AM CDT DHPM Monocytes 0.57 0.26 - 0.81 x10(9)/L 05/15/2023 5:36 AM CDT DHPM Eosinophils 0.18 0.03 - 0.48 x10(9)/L 05/15/2023 5:36 AM CDT DHPM Basophils 0.05 0.01 - 0.08 x10(9)/L 05/15/2023 5:36 AM CDT DHPM Blood (Blood, Venous) 05/15/2023 4:37 AM CDT 05/15/2023 5:03 AM CDT Kenia Bhandari M.D. LAB BLOOD ADD-ON [facility] [address] [place], [place] [address] [address] [place] [address] * Phosphorus Inorganic (05/15/2023 4:37 AM CDT) Phosphorus (Inorganic), S 3.2 2.5 - 4.5 mg/dL 05/15/2023 5:30 AM CDT DTL Blood (Blood, Venous) 05/15/2023 4:37 AM CDT 05/15/2023 5:12 AM CDT Kenia Bhandari M.D. LAB BLOOD ADD-ON [facility] [address] [place], [place] [id number] [place] [address] 200 [place] [address] * Magnesium (05/15/2023 4:37 AM CDT) Pathologist [facility] Magnesium, S 1.7 1.7 - 2.3 mg/dL 05/15/2023 5:30 AM CDT DTL Blood (Blood, Venous) 05/15/2023 4:37 AM CDT 05/15/2023 5:12 AM CDT Kenia Bhandari M.D. LAB BLOOD ADD-ON [facility] [address] [place], [place] [id number] [place] [address] [address] [place] [address] * (ABNORMAL) Basic Metabolic Panel (05/15/2023 4:37 AM CDT) Potassium, S 4.8 3.6 - 5.2 mmol/L 05/15/2023 5:30 AM CDT DTL Sodium, S 139 135 - 145 mmol/L 05/15/2023 5:30 AM CDT DTL Chloride, S 103 98 - 107 mmol/L 05/15/2023 5:30 AM CDT DTL Bicarbonate, S 23 22 - 29 mmol/L 05/15/2023 5:30 AM CDT DTL Anion Gap 13 7 - 15 05/15/2023 5:30 AM CDT DTL BUN (Blood Urea Nitrogen), S 17 8 - 24 mg/dL 05/15/2023 5:30 AM CDT DTL Creatinine 1.16 0.74 - 1.35 mg/dL 05/15/2023 5:30 AM CDT DTL Estimated GFR (eGFR) 66 >=60 mL/min/BSA 05/15/2023 5:30 AM CDT DTL Comment: Estimated GFR calculated using the 2020 CKD_EPI creatinine equation. Calcium, Total, S 8.2(L) 8.8 - 10.2 mg/dL 05/15/2023 5:30 AM CDT DTL Glucose, S 89 70 - 140 mg/dL 05/15/2023 5:30 AM CDT DTL Blood (Blood, Venous) 05/15/2023 4:37 AM CDT 05/15/2023 5:12 AM CDT Kenia Bhandari M.D. LAB BLOOD ADD-ON [address] [address], [address] [address] * (ABNORMAL) Cystatin C with Estimated GFR (05/15/2023 4:37 AM CDT) eGFR by Cystatin C 58(L) >60 mL/min/BSA 05/15/2023 5:30 AM CDT DTL Comment: Estimated GFR calculated [...] lower with the new assay. Cystatin C 1.20 0.67 - 1.21 mg/L 05/15/2023 5:30 AM CDT DTL Blood (Blood, Venous) 05/15/2023 4:37 AM CDT 05/15/2023 5:12 AM CDT Kenia Bhandari M.D. LAB BLOOD ADD-ON [facility] [address] [place] [address], [facility] DTL [facility] [address] [place] [address] * Glucose, POCT (05/14/2023 9:09 PM CDT) Glucose, POCT, B 113 70 - 140 mg/dL 05/14/2023 9:59 PM CDT PCLX Site Capillary 05/14/2023 9:59 PM CDT PCLX Last Intake ContTubFdg 05/14/2023 9:59 PM CDT PCLX Blood 05/14/2023 9:09 PM CDT 05/14/2023 9:59 PM CDT Unknown Provider LAB POCT ORDERABLES- MANUAL [facility] [address] [place] [address], [facility] PCLX [facility] POC [address] [place] [address] * Glucose, POCT (05/14/2023 5:36 PM CDT) Glucose, POCT, B 124 70 - 140 mg/dL 05/14/2023 5:39 PM CDT PCLX Last Intake NPO 05/14/2023 5:39 PM CDT PCLX Blood 05/14/2023 5:36 PM CDT 05/14/2023 5:39 PM CDT Unknown Provider LAB POCT ORDERABLES- MANUAL POC [facility] [address] [place] [address], [facility] PCLX [facility] POC [address] [place] [address] * Phosphorus Inorganic (05/14/2023 5:36 PM CDT) Phosphorus (Inorganic), S 3.5 2.5 - 4.5 mg/dL 05/14/2023 7:37 PM CDT DTL Blood (Blood, Venous) 05/14/2023 5:36 PM CDT 05/14/2023 6:14 PM CDT Kenia Bhandari M.D. LAB BLOOD ADD-ON Performing Organization Address City/[facility]/ZIP Co de Phone Number [facility] [address] [place], [place] [phone] [place] [address] 200 [place] [address] * Magnesium (05/14/2023 5:36 PM CDT) Pathologist [facility] Magnesium, S 1.8 1.7 - 2.3 mg/dL 05/14/2023 7:37 PM CDT DTL Blood (Blood, Venous) 05/14/2023 5:36 PM CDT 05/14/2023 6:14 PM CDT Kenia Bhandari M.D. LAB BLOOD ADD-ON [facility] [address] [place] [address], [address] [address] * (ABNORMAL) Basic Metabolic Panel (05/14/2023 5:36 PM CDT) Potassium, S 5.1 3.6 - 5.2 mmol/L 05/14/2023 7:37 PM CDT DTL Sodium, S 139 135 - 145 mmol/L 05/14/2023 7:37 PM CDT DTL Chloride, S 100 98 - 107 mmol/L 05/14/2023 7:37 PM CDT DTL Bicarbonate, S 22 22 - 29 mmol/L 05/14/2023 7:37 PM CDT DTL Anion Gap 17(H) 7 - 15 05/14/2023 7:37 PM CDT DTL BUN (Blood Urea Nitrogen), S 17 8 - 24 mg/dL 05/14/2023 7:37 PM CDT DTL Creatinine 1.08 0.74 - 1.35 mg/dL 05/14/2023 7:37 PM CDT DTL Estimated GFR (eGFR) 72 >=60 mL/min/BSA 05/14/2023 7:37 PM CDT DTL Comment: Estimated GFR calculated using the 2020 CKD_EPI creatinine equation. Calcium, Total, S 8.4(L) 8.8 - 10.2 mg/dL 05/14/2023 7:37 PM CDT DTL Glucose, S 119 70 - 140 mg/dL 05/14/2023 7:37 PM CDT DTL Blood (Blood, Venous) 05/14/2023 5:36 PM CDT 05/14/2023 6:14 PM CDT Kenia Bhandari M.D. [place] [address], [facility] [address] [place] [address] * CT Lymph Node Biopsy (05/14/2023 4:22 PM CDT) Anatomical Region Laterality Modality Body, Abdominal RST LOS, Mus culoskeletal ARZ LOS, Neuroradiology ARZ LOS, Vascular Interventional ARZ LOS, Procedure FLA LOS, Abdominal FLA LOS, Procedural Computed Tomography, Compute d Tomography 05/14/2023 4:30 PM CDT Impressions 05/14/2023 4:[address]-guided mesenteric lymph node biopsy. EP Narrative 05/14/2023 4:50 PM CDT EXAM: CT LYMPH NODE BIOPSY PRE-PROCEDURE: Patient seen, evaluated, history reviewed, and approved [...] procedure. The total intra-procedural sedation time was: 15 minutes. TECHNIQUE: The patient was positioned on the CT scanner in a supine position. A compression device was applied to mobilize overlying bowel and preprocedural imaging was obtained. The area was prepped and draped in the usual sterile fashion. Using 1%lidocaine for local anesthetic and direct CT guidance, 17-gauge introducer was advanced to the margin of an enlarged central abdominal mesenteric lymph node. An 18-gauge Hitlab core needle biopsy device (1.1 cm throw) was then used through the introducer to obtain a total of 10 core samples from the lymph node. The introducer was then removed and subsequent postprocedural imaging showed no evidence of complication. The patient tolerated the procedure well. ?? TARGET LOCATION: Enlarged mesenteric lymph node, corresponding to the lymph node seen on series 3, image 60 of the 05/11/2023 CT study. TARGET LESION SIZE: 2.0 x 2.3 cm BIOPSY INSTRUMENT: 17/18 gauge coaxial Corvocet core needle biopsy system NUMBER OF SAMPLES OBTAINED: 10 COMPLICATION: None. ? BLOOD LOSS: None. PATIENT INSTRUCTIONS: Patient may be dismissed from the radiology department when dismissal criteria met. POST-PROCEDURE DIAGNOSIS: Mesenteric lymphadenopathy. Procedure Note Lili Franco M.D. - 05/14/2023 EXAM: CT LYMPH NODE BIOPSY PRE-PROCEDURE: Patient seen, evaluated, history reviewed, and approved forsedation. Airway, heart, and lung exam satisfactory for sedation. Discussed risks, benefits,alternatives for procedure, and/or sedation. The roles and responsibilities of care team members,residents, and fellows were discussed. Patient understands information and questions answered.Informed consent obtained from the patient. Immediately prior to starting the procedure, in the presenceof the assisting personnel, a procedural pause was conducted to verify correct patientidentity and verification of procedure to be performed, and as applicable, correct side and site,correct patient position, availability of implants, special equipment, or special requirements, andall image and specimen identification data. INTRAPROCEDURE: Moderate sedation was administered by sedation nurse undermy supervision. The patient was continuously monitored with real time oxygen saturation, heartrate, ECG rhythm strip and blood pressure throughout administration of the sedation andperformance of the procedure. The total intra-procedural sedation time was: 15 minutes. TECHNIQUE: The patient was positioned on the CT scanner in a supineposition. A compression device was applied to mobilize overlying bowel and preprocedural imaging wasobtained. The area was prepped and draped in the usual sterile fashion. Using 1%lidocaine for localanesthetic and direct CT guidance, 17-gauge introducer was advanced to the margin of an enlargedcentral abdominal mesenteric lymph node. An 18-gauge Signicatet core needle biopsy device (1.1 cm throw)was then used through the introducer to obtain a total of 10 core samples from the lymph node. Theintroducer was then removed and subsequent postprocedural imaging showed no evidence of complication.The patient tolerated the procedure well. TARGET LOCATION: Enlarged mesenteric lymph node, corresponding to thelymph node seen on series 3, image 60 of the 05/11/2023 CT study. TARGET LESION SIZE: 2.0 x 2.3 cm BIOPSY INSTRUMENT: 17/18 gauge coaxial Corvocet core needle biopsysystem NUMBER OF SAMPLES OBTAINED: 10 COMPLICATION: None. BLOOD LOSS: None. PATIENT INSTRUCTIONS: Patient may be dismissed from the radiologydepartment when dismissal criteria met. POST-PROCEDURE DIAGNOSIS: Mesenteric lymphadenopathy. IMPRESSION: CT-guided mesenteric lymph node biopsy. EP Kenia Bhandari M.D. [facility] PROCEDURES * B-cell Lymphoma, FISH, Tissue (05/14/2023 3:47 PM CDT) Result Summary Negative 05/20/2023 4:43 PM CDT DTL Disclaimer Applicable to Analyte Specific Reagent (ASR) and Laboratory Developed Tests (LDT). This test was developed and its performance characteristics determined by [facility] in a manner consistent with CLIA requirements. It has not been cleared or approved by the U.S. Food and Drug Administration. Testing results are valid for non-decalcified paraffin embedded specimens fixed in 10% neutral buffered formalin between 6 and 72 hours. Results from specimens fixed outside these parameters should be interpreted accordingly. This FISH test does not rule out other chromosome abnormalities. 05/20/2023 4:43 PM CDT DTL Released By Leighton Pittman M.D. 05/20/2023 4:43 PM CDT DTL Result Table ----- Abnormality Name ? Result ? Abn% ? Cutoff% ? 8q24.1(MYC sep) ? Normal ? <25.0 ? t(8;14) MYC/IGH fusion ? Normal ? <15.0 ? 3q27(BCL6 sep) ? Normal ? <25.0 ? 18q21(BCL2 sep) ? Normal ? <25.0 ? ----- 05/20/2023 4:43 PM CDT DTL Result nuc larry([id number])[64/1 00] 05/20/2023 4:43 PM CDT DTL Reason for Referral r/o double hit lymphoma 05/20/2023 4:43 PM CDT DTL Specimen Tissue, Paraffin, Formalin 05/20/2023 4:43 PM CDT DTL Source Lymph node, mesenteric 05/20/2023 4:43 PM CDT DTL Tissue ID [id number] 05/20/2023 4:43 PM CDT DTL Method Locus and probes ? [Strategy;#Nuclei; Class] ----- 3q27(3'BCL6,5'BCL6 ) ?[BAP;100;AM] 8CEN(D8Z2),8q24.1( MYC),14q32(IGH) ?[DFISH;100;AM] 8q24.1(5'MYC,3'MYC ) ?[BAP;100;AM] 18q21(3'BCL2,5'BCL 2) ? [BAP;100;AM] Probe strategies include: DFISH=dual color, double fusion; BAP=break-apart probe. Scoring Method: Manual Probe vendors include: AM = [employer], [employer] ([place], [place]) 05/20/2023 4:43 PM CDT DTL Interpretation No rearrangement of MYC, BCL2 or BCL6 and no fusion of MYC and IGH was observed, therefore this makes unlikely the possibility of high-grade B-cell lymphoma with MYC and BCL2 and/or BCL6 rearrangements (double-hit lymphoma; Parul et al., WHO Classification of Tumours of Haematopoietic and Lymphoid Tissues, [employer]:Christoph, 2017). FISH studies interpreted in consultation with Jennifer Serna, Ph.D. This test was ordered in the context of a [facility] pathology consultation/case (#[id number]), and this result should be interpreted within the context of the pathology consultation/repor t. 05/20/2023 4:43 PM CDT DTL Tissue 05/14/2023 3:47 PM CDT 05/17/2023 3:47 PM CDT Kenia Bhandari M.D. LAB GENETIC TESTING [facility] [address] [place] [address], [facility] DTL [address] [place] [address] * (ABNORMAL) Cytology Fine Needle Aspiration (including core biopsies) (05/14/2023 3:28 PM CDT) (A) 4:46 PM CDT DTL Disclaimer This test was developed using an analyte specific reagent. Its performance characteristics were determined by [facility] in a manner consistent with CLIA requirements. This test has not been cleared or approved by the U.S. Food and Drug Administration. Test results for (IHC or LARRY) testing are valid for specimens fixed between 6 and 72 hours. ??Delay to fixation, under fixation or over fixation fall outside of guidelines and may affect these results. (A) 05/20/2023 4:46 PM CDT DTL Report electronically signed by Leighton Pittman M.D. I verify that I have examined all relevant slides/materials for the specimen(s) and rendered or confirmed the diagnosis. Seen in consultation with: ??Ramon Rose M.D. (A) 05/20/2023 4:46 PM CDT DTL Gross Description Received 10 alcohol-fixed smears and tissue. Additionally, received in formalin labeled with the patient's name, medical record number and lymph node, Mesenteric are four pale tansoft tissue cores and multiple fragments, measuring 0.1-1.6 cm in length and measuring 0.1 cm in average diameter. Specimens aresubmitted en toto as follows: A1: ??Three cores A2: ??One core and five fragments A3: ??Eight fragments Grossed by LMB. (A) 05/20/2023 4:46 PM CDT DTL Source A. Lymph node, Mesenteric, fine needle aspiration(A) 05/20/2023 4:46 PM CDT DTL Interpretation A. Lymph node, Mesenteric, fine needle aspiration (smears/cell block): Positive for malignancy. ??Diffuse large B-cell lymphoma. See comment. Immunoperoxidase studies were performed on paraffin sections of the mesenteric lymph node using antibodies directed against the following antigens: ??CD3, CD10, CD20, BCL2, BCL6, cyclin D1, Ki-67, MUM1, MYC. ??In situ hybridization was performed on paraffin-embedded sections [...] lymphoma, mesenteric lymph node, performed at [facility] in [place], [place] ([id number]; block A1; 05/17/2023): No rearrangement of MYC, [...] not show evidence of a genetic double hit.(A) 05/20/2023 4:46 PM CDT DTL Biopsy (Lymph Node) 05/14/2023 3:28 PM CDT 05/14/2023 4:47 PM CDT Kenia Bhandari M.D. LAB SURG PATH ORDERA BLES Performing Organization Address [facility] Co de Phone Number [facility] [address] [place] [address], [facility] DTL 200 [facility] [address] [place] [address] * Glucose, POCT (05/14/2023 2:59 PM CDT) Glucose, POCT, B 129 70 - 140 mg/dL 05/14/2023 3:04 PM CDT PCLX Site Capillary 05/14/2023 3:04 PM CDT PCLX Last Intake NPO 05/14/2023 3:04 PM CDT PCLX Blood 05/14/2023 2:59 PM CDT 05/14/2023 3:04 PM CDT Unknown Provider LAB POCT ORDERABLES- MANUAL Performing Organization Address [facility] de Phone Number POC [facility] SERVICES [address] [place] [address], [facility] PCLX [facility] POC [address] [place] [address] * FL Fluoro Less Than 1 Hour (05/14/2023 1:57 PM CDT) Narrative ERCP LOS RST - 05/14/2023 1:58 PM CDT This exam does not require a radiologist review or interpretation. Please refer to the patient's medical record on this date for clinical details. Ricardo Saucedo M.D. IMG FLUOROSCOPY PROC EDURES Performing Organization Address [facility] Co de Phone Number ERCP LOS RST * Non-Endoscopic Tube Procedure (05/14/2023 1:15 PM CDT) 05/14/2023 1:15 PM CDT Impressions PETE PROVATION - 05/14/2023 4:33 PM CDT Post-op Diagnoses: ? - The jejunostomy tube portion of the Dobbhoff tube was broken and was ? leaking and was removed and replaced with a new 8 Fr jejunal extension ? tube as detailed, under fluoroscopic guidance. ? - No specimens collected. The tube is ready to use. Narrative PETE PROVATION - 05/14/2023 4:33 PM CDT Guido 6 GI GI Patient Name: Hola Lau Date of : 1950 Age: 72 Gender: Male Procedure Date: 05/14/2023 Procedure: ? Non-endoscopic Tube Procedure, fluoroscopy less than ? 1 hour Providers: ? Ricardo Saucedo MD Referring Provider: ?Ashutosh Sommer Pre-op Diagnoses: ?Exchange malfunctioning [place] tube Recommendation: ? - [facility]. The Dobbhoff tube, ? both the gastric aspiration port and the jejunal feeding extension, ? ready to be used. Findings: ? Upon external examination, leakage was found where the feeding tube ? fitting joints the body of the tube near the nose. The jejunostomy tube ? was broken, leaking and malfunctioning. The gastric aspiration part of ? the Dobbhoff tube was intact. The jejunostomy tube only, required ? removal because it was broken and was leaking. A guidewire was advanced ? through the existing leaking jejunum tube. The tip of the guidewire was ? confirmed fluoroscopically to be in the jejunum distal to the ligament ? of Treitz. The existing tube was removed while retaining the guidewire ? in position, under careful fluoroscopic guidance. A new 8 Fr Dobbhoff ? jejunal extension jejunostomy tube was lubricated and placed into the ? existing gastric aspiration tube over the guidewire. The jejunal tube ? was confirmed fluoroscopically to be in the proximal jejunum downstream ? from the ligament of Treitz. The tube was affix to the bottle that was ? already in place Procedural Details: ? The patient was seen, [...] oxygen saturations ? were monitored continuously. The procedure was accomplished without ? difficulty. The patient tolerated the procedure well. Estimated Blood Loss: ?Estimated blood loss: none. Complications: ? No immediate complications. Sedation: ? Anesthesia was administered by an anesthesia professional. The following ? parameters were monitored: oxygen saturation, heart rate, blood ? pressure, respiratory rate, EKG, adequacy of pulmonary ventilation, and ? response to care. Attending Participation: I personally performed the entire procedure. Ricardo Saucedo MD 05/14/2023 4:32:35 PM This report has been signed electronically. Number of Addenda: 0 Ashutosh Sommer M.D. GI PROCEDURE ORDERAB LES Performing Organization Address City/State/[facility] Co al Phone Number [facility] EM[facility]ENC[facility]PARTMENT NA * OK DX BONE MARROW BX & ASPIR (05/14/2023 11:17 AM CDT) Bone Marrow Narrative MMODAL - 05/14/2023 11:17 AM CDT Curry Pleitez R.N. ? 05/14/2023 11:19 AM Biopsy Bone Marrow, Sedated Performed by: Curry Pleitez R.N. Authorized by: Juan Guerrero, M.B.B.S. ?? Care team members present 1. Curry Pleitez R.N. 2. Cathy Joshi PROCEDURE DETAILS Procedure: ??Bone Marrow biopsy and Bone Marrow aspiration Bone marrow biopsy Laterality: ??Right Location of biopsy: ??Posterior iliac crest Patient position: ??Side lying Intra-procedure monitoring: ??Blood pressure monitoring, continuous pulse oximetry, heart rate and respirations Type of Needle: ??Manual bone marrow biopsy needle Findings: ??Slides obtained, aspirate obtained with spicules noted and fluid obtained Bone marrow aspiration Aspirate volume (mL): ??20 CONSENT Consent obtained: written (Risks, benefits and [...] confirmed in a procedural pause. PRE-PROCEDURE DETAILS Appropriate hand hygiene, gown, cap, mask, protective eyewear, sterile gloves, skin preparation, sterile drape, and strict aseptic technique were utilized as applicable for the procedure.: yes ?? Site preparation: chlorhexidine SEDATION / ANESTHESIA Anesthesia method: local infiltration and anesthesia Local infiltrate type: lidocaine POST-PROCEDURE DETAILS Procedure completed successfully: yes ?? Complications: no apparent complications ?? Post-procedure instructions: ??Post-procedure activity instructions provided COMMENTS 100 mg 1 % lidocaine administered SQ Pressure dressing applied Pamphlet [id number] given to family Juan Perez PROCEDURE/BARB R SURGICAL ORDERABLES MMODAL NA * Leukemia/Lymphoma Immunophenotyping by Flow Cytometry (05/14/2023 11:15 AM CDT) LCMS Result Performed 05/15/2023 2:09 PM CDT DTL Reason for Referral TNP 05/15/2023 2:09 PM CDT DTL Specimen Source Bone marrow 05/15/2023 2:09 PM CDT DTL Final Diagnosis: These results are considered preliminary and require complete integration with the current pathology case [id number] for final interpretation. ??The result should NOT be interpreted in isolation for the purposes of diagnosis or clinical management. Bone marrow, flow cytometric immunophenotyping: Normal immunophenotyping results. ??No monotypic B-cell population or increase in blasts identified. Reviewed by: Luther Seo M.D., Ph.D. 05/15/2023 2:09 PM CDT DTL Special Studies: %Lymphs: ??5% Results: Blasts: ??Not increased by CD45/side scatter and CD34. B-cells: ??No monotypic; normal expression pattern of CD19, CD10, surface kappa and lambda. T-cells/NK-cells: ??No aberrant phenotype by CD3 and CD16. Quality assessment: Specimen received within validated guidelines. 05/15/2023 2:09 PM CDT DTL Microscopic Description Consult case. Slide review not performed by flow technologist. 05/15/2023 2:09 PM CDT DTL Comment: ----ADDITIONAL INFORMATION---- This test was developed using an analyte specific reagent. Its performance characteristics were determined by [facility] in a manner consistent with CLIA requirements. This test has not been cleared or approved by the U.S. Food and Drug Administration. 05/14/2023 11:1 5 AM CDT 05/14/2023 4:25 PM CDT Zelda Correa M.D. LAB GENETIC [facility] [address] [place] [address], [facility] DT [address] [facility] [address] [place] [address] * Glucose, POCT (05/14/2023 10:28 AM CDT) Glucose, POCT, B 97 70 - 140 mg/dL 05/14/2023 10:49 AM CDT PCLX Site Capillary 05/14/2023 10:49 AM CDT PCLX Last Intake NPO 05/14/2023 10:49 AM CDT PCLX Blood 05/14/2023 10:2 8 AM CDT 05/14/2023 10:49 AM CDT Unknown Provider LAB POCT ORDERABLES- MANUAL POC [facility] [address] [place] [address], [facility] PCLX [facility] POC [address] [place] [address] * [place] Fluoro Less Than 1 Hour (05/14/2023 9:00 AM CDT) Narrative ERCP LOS RST - 05/14/2023 9:01 AM CDT This exam does not require a radiologist review or interpretation. Please refer to the patient's medical record on this date for clinical details. Ashutosh Sommer M.D. IMG FLUOROSCOPY PROC EDURES ERCP LOS RST * Surgical Pathology (05/14/2023 8:42 AM CDT) 05/17/2023 4:17 PM CDT DTL Report electronically signed by Leighton Pittman M.D. I verify that I have examined all relevant slides/materials for the specimen(s) and rendered or confirmed the diagnosis. Seen in consultation with: ??Mary Fernandez M.D. 05/17/2023 4:17 PM CDT DTL Gross Description Received in formalin labeled with the patient's name, medical record number, and duodenum-third part are multiple pale [id number] irregular soft tissues, ranging from 0.1-0.4 cm in greatest dimension. Specimens are submitted en toto in cassettes A1-A5, with each cassette containing nine specimens. Also received in the same container is a pale [id number] portion of probable debris, measuring 0.7 x 0.4 x 0.1 cm in aggregate. ??Specimens are submitted en toto in cassette A6. ??Grossed by YANDY. 05/17/2023 4:17 PM CDT DTL Disclaimer This test was developed using an analyte specific reagent. Its performance characteristics were determined by [facility] in a manner consistent with CLIA requirements. This test has not been cleared or approved by the U.S. Food and Drug Administration. Test results for (IHC or LARRY) testing are valid for specimens fixed between 6 and 72 hours. ??Delay to fixation, under fixation or over fixation fall outside of guidelines and may affect these results. 05/17/2023 4:17 PM CDT DTL Interpretation FINAL DIAGNOSIS A. Duodenum, 3rd part, endoscopic biopsy: Intestinal mucosa with ulceration and atypical lymphoid infiltrate with marked crush artifact, suggestive of involvement by B-cell lymphoma. ??See comment. Immunoperoxidase studies were performed on paraffin sections of the duodenum, 3rd part, (block A2) using antibodies directed against the following antigens: CD3, CD20, and Ki-67. In situ hybridization was performed on paraffin-embedded sections of the duodenum, 3rd part, specimen (block A2) using probes that recognize Cain-Macias virus encoded RNA (SALLIE). The specimen consists of minute fragments of duodenal mucosa with ulceration and extensive crush artifact hampering interpretation. ??Within the crushed areas, there are focal intact atypical lymphocytes that are mostly medium in size with dispersed chromatin and small nucleoli, but the majority of the infiltrate cannot be assessed cytologically. ??Similarly, immunostains are difficult to interpret, but the areas of crushed atypical lymphoid infiltrate stain positively for CD20 and appear to have a high proliferation rate by Ki-67 (estimated above 70%). CD3 stains small T-cells. ??EBV stains rare cells. COMMENT Additional studies are being performed on a separate, concurrent mesenteric lymph node biopsy. ??Please see [id number]; 05/14/2023. 05/17/2023 4:17 PM CDT DTL Biopsy (Duodenum) 05/14/2023 8:42 AM CDT Ashutosh Sommer M.D. LAB SURG PATH ORDERA FER [facility] [address] [place] [address], [place] DTL [address] [place] [address] * Glucose, POCT (05/14/2023 7:56 AM CDT) Glucose, POCT, B 106 70 - 140 mg/dL 05/14/2023 7:59 AM CDT PCLX Site Capillary 05/14/2023 7:59 AM CDT PCLX Blood 05/14/2023 7:56 AM CDT 05/14/2023 7:59 AM CDT Unknown Provider LAB POCT ORDERABLES- MANUAL POC [facility] [address] [place] [address], [facility] PCLX [facility] POC [address] [place] [address] * Upper GI Endoscopy (05/14/2023 7:50 AM CDT) 05/14/2023 7:50 AM CDT Impressions [facility] - 05/14/2023 9:08 AM CDT Post-op Diagnoses: ? - Normal esophagus. ? - Normal stomach, but with 2 L of bilious fluid aspirated clear through ? the scope. ? - Duodenal mass lesion with partial obstruction as described in detail. ? A large number of biopsies taken at the mass as requested. Existing ? nasojejunal tube replaced with a Dobbhoff so that jejunal feeding could ? be combined in a single tube with gastric aspiration given apparent ? partial gastric outlet obstruction as evidenced by the large amount of ? retained bilious fluid in the stomach. ? - Dobbhoff feeding/gastric aspiration tube placement was successfully ? performed under endoscopic and fluoroscopic guidance, and bridled in ? place. ? - No specimens collected. Narrative [facility] - 05/14/2023 9:08 AM CDT Guido 6 GI GI Patient Name: Hola Lau Date of : 1950 Age: 72 Gender: Male Procedure Date: 05/14/2023 Procedure: ? Upper GI endoscopy (enteroscopy), biopsy, ? nasojejunal tube, fluoro < 1 hour Providers: ? Ricardo Saucedo MD Referring Provider: ?Ashutosh Sommer Pre-op Diagnoses: ?Dysphagia, Esophageal reflux, Malnutrition, Weight ? loss Recommendation: ? - Return to referring physician as previously scheduled. ? - [facility] patient to [facility]. ? - Tube may be used to resume nasojejunal feeding immediately. Gastric ? aspiration port is also ready to use immediately. ? - Await pathology results. Findings: ? The esophagus was normal. The Z-line measured 40 cm distal to the ? incisors. ? The stomach was normal in forward and retroflexion view, but the gastric ? lumen had 2 L of bilious fluid, all of which was aspirated. ? The examined duodenum was demonstrated the previously seen ? circumferential, infiltrative, exophytic and ulcerated mass with 9 mm in ? diameter lumen, extending 5 cm in axial length in the proximal 3rd ? portion of the duodenal. The scope traversed the lesion. Multiple ? biopsies of the lesion at different locations were taken with a cold ? forceps. The scope was then withdrawn. An Amplatz 0.035 in guide wire ? was inserted into the existing nasojejunal tube which was then removed ? along with its bridle. Given the large amount of fluid we aspirated from ? the stomach and the patient endorsing repeated vomiting episodes due to ? a partial gastric outlet obstruction, we decided to exchange the ? existing nasojejunal feeding tube for a Dobbhoff gastric ? aspiration/jejunal feeding tube. A 16 Spanish/8 Spanish gastric ? aspiration/jejunal feeding tube was advanced through the right naris ? over the guide wire into the jejunum proximally 20 cm downstream from ? the ligament of Treitz, with the gastric aspiration port in the gastric ? antrum. Tube position was confirmed fluoroscopically. The tube was ? affixed with a bridle as requested. Procedural Details: ? The patient was seen, [...] were monitored continuously. The Gastroscope was introduced under direct ? vision through the mouth, and advanced to the third part of duodenum. ? The upper GI endoscopy was accomplished without difficulty. The patient ? tolerated the procedure well. I interpreted all fluoroscopic images ? myself, real-time, during the procedure. Estimated Blood Loss: ?Estimated blood loss: none. Complications: ? No immediate complications. Sedation: ? Anesthesia was administered by an anesthesia professional. The following ? parameters were monitored: oxygen saturation, heart rate, blood ? pressure, respiratory rate, EKG, adequacy of pulmonary ventilation, and ? response to care. Attending Participation: I personally performed the entire procedure. Ricardo Saucedo MD 05/14/2023 9:07:35 AM This report has been signed electronically. Number of Addenda: 0 Ashutosh Sommer M.D. GI PROCEDURE ORDERAB LES Performing Organization Address City/State/[facility] Co al Phone Number [facility] * Hematopathology (05/14/2023 6:22 AM CDT) 05/15/2023 2:21 PM [facility] Report electronically signed by Luther Seo M.D., Ph.D. I verify that I have examined all relevant slides/materials for the specimen(s) and rendered or confirmed the diagnosis. 05/15/2023 2:21 PM T [facility] Gross Description B: Core biopsy specimens were received in B5 and were subsequently placed in formalin. Received in formalin labeled with the patient's name, medical record number, and bone marrow biopsy is a red-brown bone marrow core, 0.3 cm in average diameter by 1.7 cm in length. ??The specimen is submitted en toto in cassette B1. The specimen was decalcified prior to processing. ??Grossed by GABY. C: Received in formalin labeled with the patient's name, medical record number, and bone marrow clot is a 1.8 x 0.9 x 0.6 cm aggregateof dark red bone marrow clot material. The specimen is submitted en toto in cassette C1. Grossed by GABY. 05/15/2023 2:21 PM [facility] Disclaimer This test was developed and its performance characteristics determined by [facility] in a manner consistent with CLIA requirements. This test has not been cleared or approved by the U.S. Food and Drug Administration. Test results for (IHC or LARRY) testing are valid for specimens fixed between 6 and 72 hours. ??Delay to fixation, under fixation or over fixation fall outside of guidelines and may affect these results. 05/15/2023 2:21 PM [facility] Interpretation FINAL DIAGNOSIS Peripheral blood, bone marrow aspirate and biopsy, iliac crest: 1. No morphologic or immunophenotypic features of involvement by lymphoma. 2. Normocellular bone marrow with morphologically normal trilineage hematopoiesis. MICROSCOPIC DESCRIPTION Peripheral Blood: CBC - ??05/14/2023 4:22:00 AM HGB 10.1 g/dL; RBC 4.18 x10(12)/L; MCV 79.9 fL; RDW 19.2 %; WBC 5.2 x10(9)/L; PLT 270 x10(9)/L Cell ? % of Total Cells ? NEUTROPHILS ? 83 ? LYMPHOCYTES ? 9 ? MONOCYTES ? 5 ? EOSINOPHILS ? 2 ? BASOPHILS ? 1 ? METAMYELOCYTES ? 0 ? MYELOCYTES ? 0 ? PROMYELOCYTES ? 0 ? BLASTS ? 0 ? OTHER CELLS ? 0 ? NRBC ? 0 ? Total Cells: 100 ? Peripheral Smear: No specific or diagnostic cytologic abnormalities. Bone Marrow Aspirate/Touch Imprint/Biopsy: Aspirate quality: Cellular. Biopsy quality: Adequate. Overall cellularity: Normocellular, 30%. Erythroid precursors: Normal quantity. Normal morphology. Myeloid precursors: Normal quantity. Normal morphology. Blasts not increased. Megakaryocytes: Normal quantity. Normal morphology and distribution. Lymphocytes: No abnormal lymphoid infiltrates. Plasma cells: Not increased. ANCILLARY STUDIES Immunohistochemistry, core biopsy (block B1), antibodies to CD3 and CD20: No abnormal infiltrates of CD3-positive T-lymphocytes or [id number] B-lymphocytes. Flow cytometric immunophenotyping, bone marrow: Blasts: ??Not increased by CD45/side scatter and CD34. B-cells: ??No monotypic; normal expression pattern of CD19, CD10, surface kappa and lambda. T-cells/NK-cells: ??No aberrant phenotype by CD3 and CD16. Quality assessment: Specimen received within validated guidelines. Both flow cytometry and immunohistochemistry (IHC) have been performed in the current case because they are medically necessary to arrive at the correct diagnosis. Several antigens analyzed by flow cytometry have also been evaluated by IHC on the paraffin-embedded tissue sections in order to interpret such immunophenotypic data in the context of cellular distribution and tissue architecture. 05/15/2023 2:21 PM CDT [facility] 05/14/2023 6:22 AM CDT 05/14/2023 6:22 AM CDT Zelda Correa M.D. LAB SURG PATH O RDERABLES [facility] [address] [place] [address], [facility] [address] [facility] [address] [place] [address] * (ABNORMAL) CBC with Differential, Blood (05/14/2023 4:22 AM CDT) Hemoglobin 10.1(L) 13.2 - 16.6 g/dL 05/14/2023 4:48 AM CDT DTL Hematocrit 33.4(L) 38.3 - 48.6 % 05/14/2023 4:48 AM CDT DTL Erythrocytes 4.18(L) 4.35 - 5.65 x10(12)/L 05/14/2023 4:48 AM CDT DTL MCV 79.9 78.2 - 97.9 fL 05/14/2023 4:48 AM CDT DTL RBC Distrib Width 19.2(H) 11.8 - 14.5 % 05/14/2023 4:48 AM CDT DTL Platelet Count 270 135 - 317 x10(9)/L 05/14/2023 4:48 AM CDT DTL Leukocytes 5.2 3.4 - 9.6 x10(9)/L 05/14/2023 4:48 AM CDT DTL Neutrophils 3.50 1.56 - 6.45 x10(9)/L 05/14/2023 4:48 AM CDT DHPM Lymphocytes 0.82(L) 0.95 - 3.07 x10(9)/L 05/14/2023 4:48 AM CDT DTL Monocytes 0.59 0.26 - 0.81 x10(9)/L 05/14/2023 4:48 AM CDT DTL Eosinophils 0.23 0.03 - 0.48 x10(9)/L 05/14/2023 4:48 AM CDT DTL Basophils 0.09(H) 0.01 - 0.08 x10(9)/L 05/14/2023 4:48 AM CDT DTL Blood (Blood, Venous) 05/14/2023 4:22 AM CDT 05/14/2023 4:39 AM CDT Kenia Bhandari M.D. LAB BLOOD ADD-ON [facility] [address] [place] [address], [facility] DTL [facility] [address] [place] [address] [facility] [address] [place] [address] * Phosphorus Inorganic (05/14/2023 4:22 AM CDT) Phosphorus (Inorganic), S 3.0 2.5 - 4.5 mg/dL 05/14/2023 5:09 AM CDT DTL Blood (Blood, Venous) 05/14/2023 4:22 AM CDT 05/14/2023 4:50 AM CDT Kenia Bhandari M.D. LAB BLOOD ADD-ON [facility] [address] [place], [place] [id number] [place] [address] [address] [place] [address] * Magnesium (05/14/2023 4:22 AM CDT) Pathologist [facility] Magnesium, S 2.0 1.7 - 2.3 mg/dL 05/14/2023 5:09 AM CDT DTL Blood (Blood, Venous) 05/14/2023 4:22 AM CDT 05/14/2023 4:50 AM CDT Kenia Bhandari M.D. LAB BLOOD ADD-ON [facility] [address] [place], [place] [id number] [place] [address] [address] [place] [address] * (ABNORMAL) Basic Metabolic Panel (05/14/2023 4:22 AM CDT) Potassium, S 4.4 3.6 - 5.2 mmol/L 05/14/2023 5:09 AM CDT DTL Sodium, S 138 135 - 145 mmol/L 05/14/2023 5:09 AM CDT DTL Chloride, S 100 98 - 107 mmol/L 05/14/2023 5:09 AM CDT DTL Bicarbonate, S 23 22 - 29 mmol/L 05/14/2023 5:09 AM CDT DTL Anion Gap 15 7 - 15 05/14/2023 5:09 AM CDT DTL BUN (Blood Urea Nitrogen), S 17 8 - 24 mg/dL 05/14/2023 5:09 AM CDT DTL Creatinine 1.14 0.74 - 1.35 mg/dL 05/14/2023 5:09 AM CDT DTL Estimated GFR (eGFR) 67 >=60 mL/min/BSA 05/14/2023 5:09 AM CDT DTL Comment: Estimated GFR calculated using the 2020 CKD_EPI creatinine equation. Calcium, Total, S 8.3(L) 8.8 - 10.2 mg/dL 05/14/2023 5:09 AM CDT DTL Glucose, S 106 70 - 140 mg/dL 05/14/2023 5:09 AM CDT DTL Blood (Blood, Venous) 05/14/2023 4:22 AM CDT 05/14/2023 4:50 AM CDT Kenia Bhandari M.D. LAB BLOOD ADD-ON [facility] [address] [place] [address], [facility] [address] [place] [address] * (ABNORMAL) Cystatin C with Estimated GFR (05/14/2023 4:22 AM CDT) eGFR by Cystatin C 60(L) >60 mL/min/BSA 05/14/2023 5:09 AM CDT DTL Comment: Estimated GFR calculated [...] lower with the new assay. Cystatin C 1.17 0.67 - 1.21 mg/L 05/14/2023 5:09 AM CDT DTL Blood (Blood, Venous) 05/14/2023 4:22 AM CDT 05/14/2023 4:50 AM CDT Kenia Bhandari M.D. LAB BLOOD ADD-ON Performing Organization Address [facility] Co de Phone Number [facility] [address] [place] [address], [place] DTL [facility] [address] [place] [address] * ECG 12 Lead (05/14/2023 4:04 AM CDT) Ventricular Rate ECG/Min 82 BPM MUSE OK Interval 148 ms MUSE QRSD Interval 92 ms MUSE QT Interval 366 ms MUSE QTC Interval 427 ms MUSE P [place] 45 degrees MUSE R [place] 60 degrees MUSE T Wave [place] 42 degrees MUSE 05/14/2023 4:04 AM CDT 05/14/2023 4:08 AM CDT Impressions MUSE - 05/14/2023 4:08 AM CDT Sinus rhythm Premature atrial complexes Otherwise normal ECG When compared with ECG of 12-MAY-2023 02:17, Premature atrial complexes are now present Reviewed by ISAURO Sahni Narrative Procedure Note Parth Stoner Jr., M.D. - 05/14/2023 IMPRESSION: Sinus rhythm Premature atrial complexes Otherwise normal ECG When compared with ECG of 12-MAY-2023 02:17, Premature atrial complexes are now present Reviewed by ISAURO Sahni Kenia Bhandari M.D. ECG ORDERABLES Performing Organization Address City/[facility]/ZIP Co de Phone Number MUSE NA * Glucose, POCT (05/13/2023 10:40 PM CDT) Glucose, POCT, B 117 70 - 140 mg/dL 05/13/2023 10:43 PM CDT PCLX Site Capillary 05/13/2023 10:43 PM CDT PCLX Last Intake ContTubFdg 05/13/2023 10:43 PM CDT PCLX Blood 05/13/2023 10:4 0 PM CDT 05/13/2023 10:43 PM CDT Unknown Provider LAB POCT ORDERABLES- MANUAL Performing Organization Address City/[facility]/ZIP Co de Phone Number POC [facility] [address] [place] [address], [facility] PCLX [facility] POC [address] [place] [address] * Glucose, POCT (05/13/2023 5:52 PM CDT) Glucose, POCT, B 98 70 - 140 mg/dL 05/13/2023 6:02 PM CDT PCLX Blood 05/13/2023 5:52 PM CDT 05/13/2023 6:02 PM CDT Unknown Provider LAB POCT ORDERABLES- MANUAL Performing Organization Address [facility] Co de Phone Number [facility] [address] [place] [address], [facility] PCLX [facility] POC [address] [place] [address] * Phosphorus Inorganic (05/13/2023 3:59 PM CDT) Phosphorus (Inorganic), S 3.1 2.5 - 4.5 mg/dL 05/13/2023 4:51 PM CDT DTL Blood (Blood, Venous) 05/13/2023 3:59 PM CDT 05/13/2023 4:34 PM CDT Kenia Bhandari M.D. LAB BLOOD ADD-ON Performing Organization Address City/[facility]/ZIP Co de Phone Number [facility] [address] [place] [address], [facility] [address] [place] [address] * Magnesium (05/13/2023 3:59 PM CDT) Magnesium, S 1.7 1.7 - 2.3 mg/dL 05/13/2023 4:51 PM CDT DTL Blood (Blood, Venous) 05/13/2023 3:59 PM CDT 05/13/2023 4:34 PM CDT Kenia Bhandari M.D. LAB BLOOD ADD-ON [facility] [address] [place] [address], [facility] DTL [facility] [address] [place] [address] * (ABNORMAL) Basic Metabolic Panel (05/13/2023 3:59 PM CDT) Pathologist [facility] Potassium, S 4.4 3.6 - 5.2 mmol/L 05/13/2023 4:51 PM CDT DTL Sodium, S 138 135 - 145 mmol/L 05/13/2023 4:51 PM CDT DTL Chloride, S 101 98 - 107 mmol/L 05/13/2023 4:51 PM CDT DTL Bicarbonate, S 24 22 - 29 mmol/L 05/13/2023 4:51 PM CDT DTL Anion Gap 13 7 - 15 05/13/2023 4:51 PM CDT DTL BUN (Blood Urea Nitrogen), S 19 8 - 24 mg/dL 05/13/2023 4:51 PM CDT DTL Creatinine 1.14 0.74 - 1.35 mg/dL 05/13/2023 4:51 PM CDT DTL Estimated GFR (eGFR) 67 >=60 mL/min/BSA 05/13/2023 4:51 PM CDT DTL Comment: Estimated GFR calculated using the 2020 CKD_EPI creatinine equation. Calcium, Total, S 8.3(L) 8.8 - 10.2 mg/dL 05/13/2023 4:54 PM CDT DTL Glucose, S 107 70 - 140 mg/dL 05/13/2023 4:51 PM CDT DTL Blood (Blood, Venous) 05/13/2023 3:59 PM CDT 05/13/2023 4:34 PM CDT Kenia Bhandari M.D. LAB BLOOD ADD-ON [facility] [address] [place] [address], [facility] DTL [facility] [address] [place] [address] * Glucose, POCT (05/13/2023 12:04 PM CDT) Glucose, POCT, B 114 70 - 140 mg/dL 05/13/2023 12:19 PM CDT PCLX Last Intake ContTubFdg 05/13/2023 12:19 PM CDT PCLX Blood 05/13/2023 12:0 4 PM CDT 05/13/2023 12:20 PM CDT Unknown Provider LAB POCT ORDERABLES- MANUAL POC [facility] [address] [place] [address], [facility] PCLX [facility] POC [address] [place] [address] * Glucose, POCT (05/13/2023 9:37 AM CDT) Glucose, POCT, B 97 70 - 140 mg/dL 05/13/2023 10:33 AM CDT PCLX Last Intake ContTubFdg 05/13/2023 10:33 AM CDT PCLX Blood 05/13/2023 9:37 AM CDT 05/13/2023 10:33 AM CDT Unknown Provider LAB POCT ORDERABLES- MANUAL [facility] [address] [place] [address], [facility] PCLX [facility] POC [address] [place] [address] * Magnesium (05/13/2023 5:41 AM CDT) Magnesium, S 1.8 1.7 - 2.3 mg/dL 05/13/2023 6:46 AM CDT DTL Blood (Blood, Venous) 05/13/2023 5:41 AM CDT 05/13/2023 6:28 AM CDT Kenia Bhandari M.D. LAB BLOOD ADD-ON [facility] [address] [place] [address], [facility] [address] [place] [address] * Phosphorus Inorganic (05/13/2023 5:41 AM CDT) Pathologist [facility] Phosphorus (Inorganic), S 3.3 2.5 - 4.5 mg/dL 05/13/2023 6:46 AM CDT DTL Blood (Blood, Venous) 05/13/2023 5:41 AM CDT 05/13/2023 6:28 AM CDT Kenia Bhandari M.D. LAB BLOOD ADD-ON Performing Organization Address City/[facility] Co de Phone Number [facility] [address] [place] [address], [facility] [address] [place] [address] * (ABNORMAL) Basic Metabolic Panel (05/13/2023 5:41 AM CDT) Pathologist [facility] Potassium, S 4.3 3.6 - 5.2 mmol/L 05/13/2023 6:46 AM CDT DTL Sodium, S 138 135 - 145 mmol/L 05/13/2023 6:46 AM CDT DTL Chloride, S 101 98 - 107 mmol/L 05/13/2023 6:46 AM CDT DTL Bicarbonate, S 25 22 - 29 mmol/L 05/13/2023 6:46 AM CDT DTL Anion Gap 12 7 - 15 05/13/2023 6:46 AM CDT DTL BUN (Blood Urea Nitrogen), S 21 8 - 24 mg/dL 05/13/2023 6:46 AM CDT DTL Creatinine 1.15 0.74 - 1.35 mg/dL 05/13/2023 6:46 AM CDT DTL Estimated GFR (eGFR) 67 >=60 mL/min/BSA 05/13/2023 6:46 AM CDT DTL Comment: Estimated GFR calculated using the 2020 CKD_EPI creatinine equation. Calcium, Total, S 8.3(L) 8.8 - 10.2 mg/dL 05/13/2023 6:46 AM CDT DTL Glucose, S 93 70 - 140 mg/dL 05/13/2023 6:46 AM CDT DTL Blood (Blood, Venous) 05/13/2023 5:41 AM CDT 05/13/2023 6:28 AM CDT Kenia Bhandari M.D. LAB BLOOD ADD-ON [facility] [address] [place] [address], [facility] [address] [place] [address] * (ABNORMAL) CBC with Differential, Blood (05/13/2023 5:41 AM CDT) Hemoglobin 9.3(L) 13.2 - 16.6 g/dL 05/13/2023 6:24 AM CDT DTL Hematocrit 30.2(L) 38.3 - 48.6 % 05/13/2023 6:24 AM CDT DTL Erythrocytes 3.77(L) 4.35 - 5.65 x10(12)/L 05/13/2023 6:24 AM CDT DTL MCV 80.1 78.2 - 97.9 fL 05/13/2023 6:24 AM CDT DTL RBC Distrib Width 19.1(H) 11.8 - 14.5 % 05/13/2023 6:24 AM CDT DTL Platelet Count 269 135 - 317 x10(9)/L 05/13/2023 6:24 AM CDT DTL Leukocytes 4.7 3.4 - 9.6 x10(9)/L 05/13/2023 6:24 AM CDT DTL Neutrophils 2.84 1.56 - 6.45 x10(9)/L 05/13/2023 6:24 AM CDT DHPM Lymphocytes 0.80(L) 0.95 - 3.07 x10(9)/L 05/13/2023 6:24 AM CDT DTL Monocytes 0.63 0.26 - 0.81 x10(9)/L 05/13/2023 6:24 AM CDT DTL Eosinophils 0.31 0.03 - 0.48 x10(9)/L 05/13/2023 6:24 AM CDT DTL Basophils 0.10(H) 0.01 - 0.08 x10(9)/L 05/13/2023 6:24 AM CDT DTL Blood (Blood, Venous) 05/13/2023 5:41 AM CDT 05/13/2023 6:16 AM CDT Kenia Bhandari M.D. LAB BLOOD ADD-ON [facility] [address] [place] [address], [place] DTL [facility] [address] [place] [address] [facility] [address] [place] [address] * (ABNORMAL) Cystatin C with Estimated GFR (05/13/2023 5:41 AM CDT) Pathologist [facility] eGFR by Cystatin C 54(L) >60 mL/min/BSA 05/13/2023 6:46 AM CDT DTL Comment: Estimated GFR calculated [...] lower with the new assay. Cystatin C 1.27(H) 0.67 - 1.21 mg/L 05/13/2023 6:46 AM CDT DTL Blood (Blood, Venous) 05/13/2023 5:41 AM CDT 05/13/2023 6:28 AM CDT Kenia Bhandari M.D. LAB BLOOD ADD-ON [facility] [address] [place] [address], [place] DTL [facility] [address] [place] [address] * Glucose, POCT (05/12/2023 10:22 PM CDT) Glucose, POCT, B 93 70 - 140 mg/dL 05/12/2023 10:24 PM CDT PCLX Site Capillary 05/12/2023 10:24 PM CDT PCLX Last Intake ContTubFdg 05/12/2023 10:24 PM CDT PCLX Blood 05/12/2023 10:2 2 PM CDT 05/12/2023 10:25 PM CDT Unknown Provider LAB POCT ORDERABLES- MANUAL Performing Organization Address City/[facility]/ZIP Co de Phone Number [facility] [address] [place] [address], [place] PCLX [facility] POC [address] [place] [address] * Glucose, POCT (05/12/2023 5:00 PM CDT) Glucose, POCT, B 75 70 - 140 mg/dL 05/12/2023 5:03 PM CDT PCLX Site Capillary 05/12/2023 5:03 PM CDT PCLX Last Intake ContTubFdg 05/12/2023 5:03 PM CDT PCLX Blood 05/12/2023 5:00 PM CDT 05/12/2023 5:03 PM CDT Unknown Provider LAB POCT ORDERABLES- MANUAL Performing Organization Address City/[facility]/ZIP Co de Phone Number [facility] [address] [place] [address], [place] PCLX [facility] POC [address] [place] [address] * Glucose, POCT (05/12/2023 12:19 PM CDT) Glucose, POCT, B 82 70 - 140 mg/dL 05/12/2023 12:23 PM CDT PCLX Site Capillary 05/12/2023 12:23 PM CDT PCLX Last Intake > 4 hours 05/12/2023 12:23 PM CDT PCLX Blood 05/12/2023 12:1 9 PM CDT 05/12/2023 12:23 PM CDT Unknown Provider LAB POCT ORDERABLES- MANUAL Performing Organization Address City/[facility]/ZIP Co de Phone Number POC [facility] [address] [place] [address], [facility] PCLX [facility] POC [address] [place] [address] * Glucose, POCT (05/12/2023 8:40 AM CDT) Glucose, POCT, B 94 70 - 140 mg/dL 05/12/2023 8:43 AM CDT PCLX Site Capillary 05/12/2023 8:43 AM CDT PCLX Last Intake > 4 hours 05/12/2023 8:43 AM CDT PCLX Blood 05/12/2023 8:40 AM CDT 05/12/2023 8:43 AM CDT Unknown Provider LAB POCT ORDERABLES- MANUAL Performing Organization Address [facility] de Phone Number [facility] [address] [place] [address], [facility] PCLX [facility] POC [address] [place] [address] * (ABNORMAL) Cystatin C with Estimated GFR (05/12/2023 5:44 AM CDT) eGFR by Cystatin C 47(L) >60 mL/min/BSA 05/12/2023 8:16 AM CDT DTL Comment: Estimated GFR calculated [...] lower with the new assay. Cystatin C 1.39(H) 0.67 - 1.21 mg/L 05/12/2023 8:16 AM CDT DTL Blood (Blood, Venous) 05/12/2023 5:44 AM CDT 05/12/2023 7:10 AM CDT Yue Mills M.D. LAB BLOOD ADD-O N [facility] [address] [place] [address], [facility] DTL [facility] [address] [place] [address] * (ABNORMAL) CBC with Differential, Blood (05/12/2023 5:44 AM CDT) Hemoglobin 9.4(L) 13.2 - 16.6 g/dL 05/12/2023 7:01 AM CDT DTL Hematocrit 30.3(L) 38.3 - 48.6 % 05/12/2023 7:01 AM CDT DTL Erythrocytes 3.80(L) 4.35 - 5.65 x10(12)/L 05/12/2023 7:01 AM CDT DTL MCV 79.7 78.2 - 97.9 fL 05/12/2023 7:01 AM CDT DTL RBC Distrib Width 19.5(H) 11.8 - 14.5 % 05/12/2023 7:01 AM CDT DTL Platelet Count 255 135 - 317 x10(9)/L 05/12/2023 7:01 AM CDT DTL Leukocytes 4.5 3.4 - 9.6 x10(9)/L 05/12/2023 7:01 AM CDT DTL Neutrophils 2.63 1.56 - 6.45 x10(9)/L 05/12/2023 7:01 AM CDT DHPM Lymphocytes 0.87(L) 0.95 - 3.07 x10(9)/L 05/12/2023 7:01 AM CDT DTL Monocytes 0.64 0.26 - 0.81 x10(9)/L 05/12/2023 7:01 AM CDT DTL Eosinophils 0.25 0.03 - 0.48 x10(9)/L 05/12/2023 7:01 AM CDT DTL Basophils 0.07 0.01 - 0.08 x10(9)/L 05/12/2023 7:01 AM CDT DTL Blood (Blood, Venous) 05/12/2023 5:44 AM CDT 05/12/2023 6:53 AM CDT Yue Mills M.D. LAB BLOOD ADD-O N Performing Organization Address City/[facility]/ZIP Co de Phone Number [facility] [address] [place], [place] [id number] [place] [address] [address] [place], [place] [phone] [place] [id number] * Magnesium (05/12/2023 5:44 AM CDT) Magnesium, S 1.8 1.7 - 2.3 mg/dL 05/12/2023 8:16 AM CDT DTL Blood (Blood, Venous) 05/12/2023 5:44 AM CDT 05/12/2023 7:10 AM CDT Yue Mills M.D. LAB BLOOD ADD-O N Performing Organization Address City/[facility]/ZIP Co de Phone Number [facility] [address] [place], [place] [id number] [place] [address] [address] [place] [address] * Phosphorus Inorganic (05/12/2023 5:44 AM CDT) Phosphorus (Inorganic), S 3.5 2.5 - 4.5 mg/dL 05/12/2023 8:16 AM CDT DTL Blood (Blood, Venous) 05/12/2023 5:44 AM CDT 05/12/2023 7:10 AM CDT Yue Mills M.D. LAB BLOOD ADD-O N [facility] [address] [place], [place] [phone] [place] [address] DTL [facility] [address] [place] [address] * (ABNORMAL) Basic Metabolic Panel (05/12/2023 5:44 AM CDT) Pathologist [facility] Potassium, S 4.4 3.6 - 5.2 mmol/L 05/12/2023 8:16 AM CDT DTL Sodium, S 137 135 - 145 mmol/L 05/12/2023 8:16 AM CDT DTL Chloride, S 99 98 - 107 mmol/L 05/12/2023 8:16 AM CDT DTL Bicarbonate, S 25 22 - 29 mmol/L 05/12/2023 8:16 AM CDT DTL Anion Gap 13 7 - 15 05/12/2023 8:16 AM CDT DTL BUN (Blood Urea Nitrogen), S 20 8 - 24 mg/dL 05/12/2023 8:16 AM CDT DTL Creatinine 1.16 0.74 - 1.35 mg/dL 05/12/2023 8:16 AM CDT DTL Estimated GFR (eGFR) 66 >=60 mL/min/BSA 05/12/2023 8:16 AM CDT DTL Comment: Estimated GFR calculated using the 2020 CKD_EPI creatinine equation. Calcium, Total, S 8.3(L) 8.8 - 10.2 mg/dL 05/12/2023 8:16 AM CDT DTL Glucose, S 84 70 - 140 mg/dL 05/12/2023 8:16 AM CDT DTL Blood (Blood, Venous) 05/12/2023 5:44 AM CDT 05/12/2023 7:10 AM CDT Yue Mills M.D. LAB BLOOD ADD-O N [facility] [address] [place] [address], [facility] DTL [facility] [address] [place] [address] * ECG 12 Lead (05/12/2023 2:17 AM CDT) Ventricular Rate ECG/Min 75 BPM MUSE OK Interval 154 ms MUSE QRSD Interval 90 ms MUSE QT Interval 400 ms MUSE QTC Interval 446 ms MUSE P [place] 41 degrees MUSE R [place] 57 degrees MUSE T Wave [place] 17 degrees MUSE 05/12/2023 2:17 AM CDT 05/13/2023 6:24 PM CDT Impressions MUSE - 05/12/2023 2:25 AM CDT Normal sinus rhythm Nonspecific ST and T wave abnormality When compared with ECG of 22-OCT-2019 07:43, ST and T waves have changed Reviewed by ISAURO Chaves Narrative Procedure Note Francisco Oglesby M.D., M.P.H. - 05/13/2023 IMPRESSION: Normal sinus rhythm Nonspecific ST and T wave abnormality When compared with ECG of 22-OCT-2019 07:43, ST and T waves have changed Reviewed by ISAURO Chaves Yue Mills M.D. ECG ORDERABLES MUSE NA * CT Abdomen Pelvis with IV Contrast (05/11/2023 11:14 PM CDT) Anatomical Region Laterality Modality Abdomen, Pelvis, Abdominal R ST LOS, Abdominal ARZ LOS, Abdominal FLA LOS N/A Computed Tomograp hy, Computed Tomography 05/11/2023 11:1 3 PM CDT Impressions 05/12/2023 9:35 AM CDT 1. 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 Interval placement of an enteric tube past the duodenal luminal narrowing with tip in the jejunum. Possible microperforation of the transverse duodenum involving the duodenal malignancy. 2. Unchanged mesenteric, portacaval, and retroperitoneal lymphadenopathy. Narrative 05/12/2023 9:35 AM CDT EXAM: ??CT ABDOMEN PELVIS WITH IV CONTRAST COMPARISON: ??PET/CT 05/10/[address] abdomen pelvis 04/29/2023. FINDINGS: ??Redemonstrated masslike thickening and heterogeneous enhancement involving the 3rd aspect of the duodenum with luminal narrowing consistent with duodenal malignancy. Focal wall irregularity with locules of gas along the superior aspect of the transverse duodenum may represent microperforation (series 6 image 42). No pneumoperitoneum to suggest gross bowel perforation. Interval placement of enteric tube with tip past the duodenal mass and in the distal jejunum. Distended fluid-filled stomach and proximal duodenum. Mild inflammatory stranding involving the duodenum, may be reactive versus infiltrative disease. Patent mesenteric and portal veins. Normal caliber small bowel distal to the duodenal mass. Colonic diverticulosis. Negative appendix. Tiny bilateral fat-containing inguinal hernias. Unchanged 2.1 cm aortocaval lymph node (series 3, image 75) and multiple prominent mesenteric lymph node, largest measuring 2.3 cm (series 6, image 33). Prominent portacaval lymph nodes measuring 2 cm and 2.1 cm (series 3, image 54). Stable distention of the gallbladder. Mild extrahepatic and intrahepatic bile duct dilatation. No suspicious hepatic lesions. Stable subcapsular splenic lesion. Splenomegaly. Pancreatic parenchymal atrophy. Normal-appearing adrenal glands. Mild enlarged prostate. No suspicious hepatic lesion. Degenerative changes of the spine. Aortoiliac calcifications. Fibrosis/scarring in the lung bases. 8 mm pulmonary nodule in the left lung base. Coronary artery calcifications. Procedure Note Julia Clifford M.D. - 05/12/2023 EXAM: CT ABDOMEN PELVIS WITH IV CONTRAST COMPARISON: PET/CT 05/10/[address] abdomen pelvis 04/29/2023. FINDINGS: Redemonstrated masslike thickening and heterogeneousenhancement involving the 3rd aspect of the duodenum with luminal narrowing consistent with duodenalmalignancy. Focal wall irregularity with locules of gas along the superior aspect of the transverse duodenummay represent microperforation (series 6 image 42). No pneumoperitoneum to suggest grossbowel perforation. Interval placement of enteric tube with tip past the duodenal mass and inthe distal jejunum. Distended fluid-filled stomach and proximal duodenum. Mild inflammatorystranding involving the duodenum, may be reactive versus infiltrative disease. Patent mesentericand portal veins. Normal caliber small bowel distal to the duodenal mass. Colonicdiverticulosis. Negative appendix. Tiny bilateral fat-containing inguinal hernias. Unchanged 2.1 cm aortocaval lymph node (series 3, image 75) and multipleprominent mesenteric lymph node, largest measuring 2.3 cm (series 6, image 33). Prominent portacavallymph nodes measuring 2 cm and 2.1 cm (series 3, image 54). Stable distention of the gallbladder. Mild extrahepatic and intrahepaticbile duct dilatation. No suspicious hepatic lesions. Stable subcapsular splenic lesion.Splenomegaly. Pancreatic parenchymal atrophy. Normal-appearing adrenal glands. Mild enlarged prostate. No suspicious hepatic lesion. Degenerative changes of the spine.Aortoiliac calcifications. Fibrosis/scarring in the lung bases. 8 mm pulmonary nodule in the leftlung base. Coronary artery calcifications. IMPRESSION: 1. Stable duodenal malignancy centered in the 3rd segment of the duodenumwith luminal narrowing and mild-moderate upstream fluid distended stomach and duodenum suggestive ofa low- grade malignant duodenal obstruction. Interval placement of an enteric tube past theduodenal luminal narrowing with tip in the jejunum. Possible microperforation of the transverse duodenuminvolving the duodenal malignancy. 2. Unchanged mesenteric, portacaval, and retroperitoneallymphadenopathy. Truman Baum M.D. [facility] PROC EDURES * DX Abdomen Portable Anterior Posterior 1 View (05/11/2023 10:02 PM CDT) Anatomical Region Laterality Modality Abdomen, Abdominal RST LOS, Abdominal ARZ LOS, Abdominal FLA LOS N/A Digital Radiography 05/11/2023 10:0 5 PM CDT Impressions 05/12/2023 7:34 AM CDT Comparison abdominal radiograph 05/06/2023. Interval advancement of the enteric tube with tip now extending over the proximal jejunum. Vascular stent in the left upper quadrant. Narrative 05/12/2023 7:34 AM CDT EXAM: ??DX ABDOMEN PORTABLE ANTERIOR POSTERIOR 1 VIEW Procedure Note Omar Badillo M.D. - 05/12/2023 EXAM: DX ABDOMEN PORTABLE ANTERIOR POSTERIOR 1 VIEW IMPRESSION: Comparison abdominal radiograph 05/06/2023. Interval advancement of theenteric tube with tip now extending over the proximal jejunum. Vascular stent in theleft upper quadrant. Shoaib Rojas M.D. IMG DIAGNOSTIC IMAGI NG PROCEDURES * Lactate, POCT (05/11/2023 8:33 PM CDT) Lactate, POCT 0.65 0.50 - 2.20 mmol/L 05/11/2023 9:44 PM CDT PCLX Blood (Blood, Venous) 05/11/2023 8:33 PM CDT 05/11/2023 8:33 PM CDT Omar Gerber M.D. LAB POCT ORDERABLES - DEVICE Performing Organization Address [facility] de Phone Number POC [facility] [address] [place], [place] [phone] [place] [address] [facility] [address] [place] [address] * Prothrombin Time (PT) (05/11/2023 8:31 PM CDT) Prothrombin Time, P 12.1 9.4 - 12.5 sec 05/11/2023 8:54 PM CDT STMA INR 1.1 0.9 - 1.1 05/11/2023 8:54 PM CDT STMA Comment: ----ADDITIONAL INFORMATION---- Standard intensity warfarin therapeutic range: 2.0 to 3.0 ?? High intensity warfarin therapeutic range: 2.5 to 3.5 Blood (Blood, Venous) 05/11/2023 8:31 PM CDT 05/11/2023 8:46 PM CDT Omar Gerber M.D. LAB BLOOD ADD-ON Performing Organization Address [facility]/ZIP Co de Phone Number [facility] [address] [place] [address], [facility] STMA [facility] [address] [place] [address] * Lipase (05/11/2023 8:31 PM CDT) Lipase, S 22 13 - 60 U/L 05/11/2023 9: 14 PM CDT DTL Blood (Blood, Venous) 05/11/2023 8:31 PM CDT 05/11/2023 8:58 PM CDT Omar Gerber M.D. LAB BLOOD ADD-ON [facility] [address] [place] [address], [facility] [address] [place] [address] * (ABNORMAL) Hepatic Function Panel (05/11/2023 8:31 PM CDT) Bilirubin, Total, S 0.3 <=1.2 mg/dL 05/11/2023 9:14 PM CDT DTL Bilirubin, Direct, S <0.2 0.0 - 0.3 mg/dL 05/11/2023 9:14 PM CDT DTL Aspartate Aminotransferase (AST), S 22 8 - 48 U/L 05/11/2023 9:14 PM CDT DTL Alanine Aminotransferase (ALT), S 14 7 - 55 U/L 05/11/2023 9:14 PM CDT DTL Alkaline Phosphatase, S 108 40 - 129 U/L 05/11/2023 9:14 PM CDT DTL Albumin, S 3.5 3.5 - 5.0 g/dL 05/11/2023 9:14 PM CDT DTL Protein, Total, S 5.7(L) 6.3 - 7.9 g/dL 05/11/2023 9:14 PM CDT DTL Blood (Blood, Venous) 05/11/2023 8:31 PM CDT 05/11/2023 8:58 PM CDT Omar Gerber M.D. LAB BLOOD ADD-ON [facility] [address] [place] [address], [facility] DTL [facility] [address] [place] [address] * (ABNORMAL) Basic Metabolic Panel (05/11/2023 8:31 PM CDT) [facility] Potassium, P 4.4 3.6 - 5.2 mmol/L 05/11/2023 9:07 PM CDT STMA Sodium, P 137 135 - 145 mmol/L 05/11/2023 9:07 PM CDT STMA Chloride, P 99 98 - 107 mmol/L 05/11/2023 9:07 PM CDT STMA Bicarbonate, P 27 22 - 29 mmol/L 05/11/2023 9:07 PM CDT STMA Anion Gap, P 11 7 - 15 05/11/2023 9:07 PM CDT STMA BUN (Blood Urea Nitrogen), P 20 8 - 24 mg/dL 05/11/2023 9:07 PM CDT STMA Creatinine 1.10 0.74 - 1.35 mg/dL 05/11/2023 9:07 PM CDT STMA Estimated GFR (eGFR) 70 >=60 mL/min/BSA 05/11/2023 9:07 PM CDT STMA Comment: Estimated GFR calculated using the 2020 CKD_EPI creatinine equation. Calcium, Total, P 8.7(L) 8.8 - 10.2 mg/dL 05/11/2023 9:07 PM CDT STMA Glucose, P 103 70 - 140 mg/dL 05/11/2023 9:07 PM CDT STMA Blood (Blood, Venous) 05/11/2023 8:31 PM CDT 05/11/2023 8:46 PM CDT Omar Gerber M.D. LAB BLOOD ADD-ON [facility] [address] [place] [address], [facility] [address] [place] [address] * (ABNORMAL) CBC with Differential, Blood (05/11/2023 8:31 PM CDT) [facility] Hemoglobin 10.5(L) 13.2 - 16.6 g/dL 05/11/2023 8:50 PM CDT STMA Hematocrit 34.9(L) 38.3 - 48.6 % 05/11/2023 8:50 PM CDT STMA Erythrocytes 4.39 4.35 - 5.65 x10(12)/L 05/11/2023 8:50 PM CDT STMA MCV 79.5 78.2 - 97.9 fL 05/11/2023 8:50 PM CDT STMA RBC Distrib Width 19.3(H) 11.8 - 14.5 % 05/11/2023 8:50 PM CDT STMA Platelet Count 285 135 - 317 x10(9)/L 05/11/2023 8:50 PM CDT STMA Leukocytes 5.8 3.4 - 9.6 x10(9)/L 05/11/2023 8:50 PM CDT STMA Neutrophils 3.67 1.56 - 6.45 x10(9)/L 05/11/2023 8:50 PM CDT DHPM Lymphocytes 0.95 0.95 - 3.07 x10(9)/L 05/11/2023 8:50 PM CDT STMA Monocytes 0.84(H) 0.26 - 0.81 x10(9)/L 05/11/2023 8:50 PM CDT STMA Eosinophils 0.26 0.03 - 0.48 x10(9)/L 05/11/2023 8:50 PM CDT STMA Basophils 0.11(H) 0.01 - 0.08 x10(9)/L 05/11/2023 8:50 PM CDT STMA Blood (Blood, Venous) 05/11/2023 8:31 PM CDT 05/11/2023 8:46 PM CDT Omar Gerber M.D. 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) Hypertension Essential Primary Hypothyroidism 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 Hyperlipidemia Apnea Sleep Obstructive Chronic Kidney Disease Stage 2 Glomerular Filtration Rate 60 To 89 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 Ischemia Intestinal With Stricture (HCC) documented in this encounter Admitting Diagnoses Diagnosis Vomiting Mass Duodenum documented in this encounter Administered Medications Inactive Administered Medications - up to 3 most recent administrations Medication Order MAR Action Action Date Dose Rate Site acetaminophen injection 650 mg (OFIRMEV) 650 mg, intravenous, at 260 mL/hr, Administer over 15 Minutes, Once, On Sat05/18/23 at 1500, For 1 dose, Restriction Criteria (Pharmacy will review and approve if criteria met): Unable to take or tolerate medications administered via the enteral route or orally (not just NPO) New Bag 05/18/2023 4:08 PM CDT 650 mg 260 mL/hr acetaminophen tablet 650 mg (TYLENOL) 650 mg, oral, Once, On Sat05/21/23 at 1600, For 1 dose, Administer 30 minutes prior to polatuzumab Given 05/21/2023 3:53 PM CDT 650 mg acetaminophen tablet 650 mg (TYLENOL) 650 mg, oral, Every 4 hours PRN, infusion related reactions or temperature greater than 38 degrees Celsius, Starting on Sat05/21/23 at 1401, For 4 doses acyclovir tablet 400 mg (ZOVIRAX) 400 mg, oral, 2 times daily, First dose on Sat05/21/23 at 1015, Drug Monitoring Program: Pharmacist to adjust medication dosing based on indication and drug clearance factors., Indications: Prophylaxis, medical Given 05/23/2023 8:48 AM CDT 400 mg Given 05/22/2023 8:09 PM CDT 400 mg Given 05/22/2023 8:58 AM CDT 400 mg albuterol nebulizer solution 2.5 mg 2.5 mg, nebulization, Once, On Sat05/20/23 at 1000, For 1 dose, Prior to pentamidine Given 05/20/2023 12:52 PM CDT 2 .5 mg allopurinoL tablet 300 mg (ZYLOPRIM) 300 mg, small bowel tube, Daily, First dose on Sat05/12/23 at 0900, On hold since 05/18/2023 at 1217 until manually unheld Given 05/17/2023 8:45 AM CDT 300 m g Given 05/16/2023 10:27 AM CDT 300 mg Given 05/15/2023 8:14 AM CDT 300 mg allopurinoL tablet 300 mg (ZYLOPRIM) 300 mg, oral, Daily, First dose on Sat05/21/23 at 1015 Given 05/23/2023 8:48 AM CDT 300 mg Given 05/22/2023 8:58 AM CDT 300 mg Given 05/21/2023 10:08 AM CDT 300 mg alum-mag hydroxide-simeth 200-200-20 mg/5 mL suspension 30 mL (MAALOX) 30 mL, oral, Every 6 hours PRN, indigestion, Starting on Sat05/23/23 at 0004 Given 05/23/2023 12:12 AM CDT 30 mL aspirin chewable tablet 81 mg 81 mg, small bowel tube, Daily, First dose on Sat05/12/23 at 0900 Given 05/17/2023 8:45 AM CDT 81 mg Given 05/16/2023 10:28 AM CDT 81 mg Given 05/15/2023 8:14 AM CDT 81 mg aspirin chewable tablet 81 mg 81 mg, oral, Daily, First dose (after last modification) on Sat05/23/23 at 0900 Given 05/23/2023 8:48 AM CDT 81 mg atorvastatin tablet 20 mg (LIPITOR) 20 mg, small bowel tube, Daily at bedtime, First dose on Sat05/12/23 at 2100, atorvaSTATin 20 mg oral daily was interchanged for simvastatin 5-40 mg oral daily Given 05/16/2023 9:01 PM CDT 20 mg Given 05/15/2023 8:59 PM CDT 20 mg Given 05/14/2023 9:05 PM CDT 20 mg atorvastatin tablet 20 mg (LIPITOR) 20 mg, oral, Daily at bedtime, First dose (after last modification) on Sat05/22/23 at 2100, atorvaSTATin 20 mg oral daily was interchanged for simvastatin 5-40 mg oral daily Given 05/22/2023 8:09 PM CDT 20 mg benzocaine-menthoL 15-3.6 mg per lozenge 1 lozenge (CEPACOL) 1 lozenge, oral, Once as needed, sore throat, cough, Starting on Sat05/15/23 at 1033, For 1 dose Given 05/15/2023 10:54 AM CDT 1 lozenge benzocaine-menthoL 15-3.6 mg per lozenge 1 lozenge (CEPACOL) 1 lozenge, oral, As needed, sore throat, cough, Starting on Sat05/15/23 at 1647, For 2 days 8 hours Given 05/16/2023 2:46 PM CDT 1 lozenge Given 05/15/2023 4:54 PM CDT 1 lozenge cycloPHOSphamide 1,500 mg in NaCl 0.9% 350 mL IVPB (CYTOXAN) 1,500 mg (rounded from 1,485 mg = 750 mg/m2 ? 1.98 m2 Treatment Plan BSA from Measured weight), intravenous, at 700 mL/hr, Administer over 30 Minutes, Once, On Sat05/21/23 at 2100, For 1 dose New 05/21/2023 8:37 PM CDT 1,500 mg 700 mL/hr D5W and NaCl 0.45 % infusion 75 mL/hr, intravenous, Continuous, Starting on Sat05/17/23 at 1515, For 2 days Rate/Dose Verify 05/18/2023 9:00 PM CDT 75 mL/hr 75 mL/hr New Bag 05/18/2023 8:45 PM CDT 75 mL/hr 75 mL/hr New Bag 05/18/2023 6:44 AM CDT 75 mL/hr 75 mL/hr D5W and NaCl 0.45 % infusion 75 mL/hr, intravenous, Continuous, Starting on Sat05/19/23 at 1430, For 10 hours New 05/19/2023 2:53 PM CDT 75 mL/hr 75 mL/hr diphenhydrAMINE injection 25 mg (BENADRYL) 25 mg, intravenous, Every 4 hours PRN, infusion related reactions. May repeat once if symptoms not relieved within 15 minutes of initial dose., Starting on Sat05/21/23 at 1401 diphenhydrAMINE injection 50 mg (BENADRYL) 50 mg, intravenous, Once, On 05/18/23 at 1500, For 1 dose, Administer 30 minutes prior to riTUXimab. Given 05/18/2023 4:08 PM CDT 50 mg diphenhydrAMINE injection 50 mg (BENADRYL) 50 mg, intravenous, Once, On Sat05/21/23 at 1600, For 1 dose, Administer 30 minutes prior to polatuzumab. Given 05/21/2023 3:54 PM CDT 50 mg DOXOrubicin injection 100 mg (ADRIAMYCIN) 100 mg (rounded from 99 mg = 50 mg/m2 ? 1.98 m2 Treatment Plan BSA from Measured weight), intravenous, Administer over 10 Minutes, Once, On Sat05/21/23 at 2030, For 1 dose, Administer IV push through a free flowing IV of 0.9% NaCL over approximately 10 minutes via Y-site. Protect from light. Given 05/21/2023 8:08 PM CDT 100 mg enoxaparin injection 40 mg (LOVENOX) 40 mg, subcutaneous, Every 24 hours scheduled, First dose on Sat05/20/23 at 1430 Given 05/23/2023 8:48 AM CDT 40 mg Right Upper Arm (Back) Given 05/22/2023 8:58 AM CDT 40 mg Ri ght Upper Arm (Back) Given 05/21/2023 8:03 AM CDT 40 mg Le ft Upper Arm (Back) fentaNYL injection 25 mcg (SUBLIMAZE) 25 mcg, [...] is less than 8 breaths/minute., Starting on Sat05/14/23 at 1534, For 3 hours, Intraprocedure (RAD) Given 05/14/2023 4:12 PM CDT 25 mcg Given 05/14/2023 4:07 PM CDT 25 mcg heparin (porcine) injection 5,000 Units 5,000 Units, subcutaneous, Every 8 hours scheduled, First dose on Sat05/12/23 at 0600, For 24 doses Given 05/19/2023 10:18 PM CDT 5,000 Units Right Upper Arm (Back) Given 05/19/2023 2:54 PM CDT 5,000 Units R ight Upper Arm (Back) Given 05/19/2023 7:04 AM CDT 5,000 Units R ight Upper Arm (Back) insulin aspart U-100 injection 0-13 Units (NovoLOG FlexPen) 0-13 Units, subcutaneous, 3 times daily, First dose (after last reorder) on [place] 05/12/23 at 0800, Insulin Scale: Moderate Correction Scale, 140 - 179: 2 units, 180 - 219: 4 units, 220 - 259: 6 units, 260 - 299: 8 units, 300 - 339: 10 units, 340 - 379: 12 units, 380 - 399: 13 units, Greater than 399: Call service writing Insulin orders Given 05/21/2023 8:04 AM CDT 2 Units Left Upper Arm (Back ) Given 05/20/2023 5:02 PM CDT 4 Units Le ft Upper Arm (Back) Given 05/20/2023 8:17 AM CDT 2 Units Ri ght Upper Arm (Back) iohexoL 300 mg iodine/mL solution 1-200 mL (OMNIPAQUE) 1-200 mL, intravenous, Once in imaging, contrast, Starting on 05/11/23 at 2300, For 1 dose, Imaging Protocol Orders, Dose per Radiant Medication Guidelines Given 05/11/2023 11:06 PM CDT 140 mL Lactated Ringer's 75 mL/hr, intravenous, Continuous, Starting on [place] 05/12/23 at 0900, For 12 hours New Bag 05/12/2023 9:25 AM CDT 75 mL/hr 75 mL/hr Lactated Ringer's 75 mL/hr, intravenous, Continuous, Starting on [place] 05/12/23 at 1345, For 15 hours New Bag 05/12/2023 10:16 PM CDT 75 mL/hr 7 5 mL/hr Rate/Dose Verify 05/12/2023 5:00 PM CDT 75 mL/hr 75 mL/h r Restarted 05/12/2023 1:31 PM CDT 75 mL/hr 75 mL/hr Lactated Ringer's 75 mL/hr, intravenous, Continuous, Starting on 05/13/23 at 0800, For 24 hours New Bag 05/13/2023 10:59 PM CDT 75 mL/hr 7 5 mL/hr New Bag 05/13/2023 10:11 AM CDT 75 mL/hr 75 mL/hr Lactated Ringer's 75 mL/hr, intravenous, Continuous, Starting on Sat05/14/23 at 0815, For 24 hours Rate/Dose Verify 05/15/2023 9:00 AM CDT 75 mL/hr 75 mL/hr Restarted 05/14/2023 5:39 PM CDT 75 mL/hr 75 mL/hr Restarted 05/14/2023 2:54 PM CDT 75 mL/hr 75 mL/hr Lactated Ringer's 20 mL/hr, intravenous, Once as needed, to keep vein open, Starting on Sat05/14/23 at 1534, For 1 dose, Intraprocedure (RAD) New Bag 05/14/2023 4:04 PM CDT 20 mL/hr 20 mL/hr Lactated Ringer's 75 mL/hr, intravenous, Continuous, Starting on Sat05/15/23 at 1100, For 24 hours New Bag 05/16/2023 3:10 AM CDT 75 mL/hr 75 mL/hr Rate/Dose Verify 05/15/2023 7:00 PM CDT 75 mL/hr 75 mL/h r Rate/Dose Verify 05/15/2023 5:00 PM CDT 75 mL/hr 75 mL/h r Lactated Ringer's 50 mL/hr, intravenous, Continuous, Starting on Sat05/16/23 at 1045, For 24 hours Rate/Dose Verify 05/17/2023 7:00 AM CDT 50 mL/hr 50 mL/hr New Bag 05/16/2023 10:09 PM CDT 50 mL/hr 50 mL/hr Restarted 05/16/2023 3:00 PM CDT 50 mL/hr 50 mL/hr lansoprazole suspension 30 mg (PREVACID) 30 mg, small bowel tube, Daily before breakfast, First dose on 05/12/23 at 0700 Given 05/18/2023 6:55 AM CDT 30 mg Given 05/17/2023 6:21 AM CDT 30 mg Given 05/16/2023 6:09 AM CDT 30 mg levothyroxine tablet 112 mcg (SYNTHROID, LEVOTHROID) 112 mcg, small bowel tube, Daily before breakfast, First dose on Sat05/12/23 at 0700 Given 05/13/2023 6:03 AM CDT 112 mcg Given 05/12/2023 6:31 AM CDT 112 mcg levothyroxine tablet 112 mcg (SYNTHROID, LEVOTHROID) 112 mcg, small bowel tube, Once, On Sat05/13/23 at 0945, For 1 dose Given 05/13/2023 9:59 AM CDT 112 mcg levothyroxine tablet 112 mcg (SYNTHROID, LEVOTHROID) 112 mcg, small bowel tube, 3 times weekly (Once per day on Sat), First dose (after last modification) on Sat05/14/23 at 0900 Given 05/21/2023 6:45 AM CDT 112 mcg Given 05/19/2023 7:04 AM CDT 112 mcg Given 05/16/2023 10:32 AM CDT 112 mcg levothyroxine tablet 112 mcg (SYNTHROID, LEVOTHROID) 112 mcg, oral, 3 times weekly (Once per day on Sat), First dose (after last modification) on Sat05/23/23 at 0700 Given 05/23/2023 6:11 AM CDT 112 mcg levothyroxine tablet 224 mcg (SYNTHROID, LEVOTHROID) 224 mcg, small bowel tube, 4 times weekly (Once per day on Sat), First dose on Sat05/15/23 at 0900 Given 05/22/2023 6:19 AM CDT 224 mcg Given 05/20/2023 7:04 AM CDT 224 mcg Given 05/18/2023 6:55 AM CDT 224 mcg levothyroxine tablet 224 mcg (SYNTHROID, LEVOTHROID) 224 mcg, oral, 4 times weekly (Once per day on Sat Sat), First dose (after last modification) on Sat05/24/23 at 0700 lidocaine 10 mg/mL (1 %) injection (XYLOCAINE) As needed, Starting on Sat05/14/23 at 1619, Intra-Op Given 05/14/2023 4:19 PM CDT 3 mL Right Upper Abdomen magnesium sulfate in D5W IVPB 1 g 1 g, intravenous, at 100 mL/hr, Administer over 60 Minutes, Once, On Sat05/17/23 at 1500, For 1 dose, Over 1 hours. New Bag 05/17/2023 3:59 PM CDT 1 g 100 mL/hr magnesium sulfate in water IVPB 2 g 2 g, intravenous, at 25 mL/hr, Administer over 120 Minutes, Once, On Sat05/13/23 at 1830, For 1 dose, Over 2 hours. New Bag 05/13/2023 7:31 PM CDT 2 g 25 mL/hr magnesium sulfate in water IVPB 2 g 2 g, intravenous, at 25 mL/hr, Administer over 120 Minutes, Once, On Sat05/15/23 at 1815, For 1 dose, Over 2 hours. New Bag 05/15/2023 6:15 PM CDT 2 g 25 mL/hr meperidine (PF) injection 25 mg (DEMEROL) 25 mg, intravenous, Every 15 min PRN, Rigors. May repeat once (maximum total dose 50 mg)., Starting on Sat05/21/23 at 1401, For 2 doses, Restriction Criteria (Pharmacy will review and approve if criteria met): Prevention or treatment of drug-induced or konqe-tzzxwbf-debywvr rigors methylPREDNISolone sod succinate (PF) 1,000 mg in NaCl 0.9% IVPB 1,000 mg, intravenous, at 116-232 mL/hr, Administer over 15-30 Minutes, Once, On Sat05/16/23 at 1400, For 1 dose New 05/16/2023 3:17 PM CDT 1,000 mg 116 mL/hr methylPREDNISolone sod succinate (PF) 1,000 mg in NaCl 0.9% IVPB 1,000 mg, intravenous, at 116-232 mL/hr, Administer over 15-30 Minutes, Daily, First dose (after last modification) on Sat05/17/23 at 1445, For 2 doses New Bag 05/18/2023 9:58 AM CDT 1,000 mg 116 mL/hr New 05/17/2023 5:05 PM CDT 1,000 mg 116 mL/hr methylPREDNISolone sod succinate (PF) 1,000 mg in NaCl 0.9% IVPB 1,000 mg, intravenous, at 116-232 mL/hr, Administer over 15-30 Minutes, Daily, First dose (after last modification) on Sat05/19/23 at 1430, For 2 doses New 05/20/2023 9:45 AM CDT 1,000 mg 116 mL/hr New Bag 05/19/2023 2:53 PM CDT 1,000 mg 116 mL/hr midazolam (PF) injection 0.5 mg (VERSED) 0.5 mg, intravenous, Every 2 min PRN, sedation, RASS -1, Starting on Sat05/14/23 at 1534, For 3 hours, Intraprocedure (RAD), May repeat every 2 minutes for a maximum of 5 mg. Do not give if respiratory rate is less than 8 breaths/minute. Given 05/14/2023 4:12 PM CDT 0.5 mg midazolam (PF) injection 1 mg (VERSED) 1 mg, intravenous, Every 2 min PRN, sedation, RASS 0, Starting on Sat05/14/23 at 1534, For 3 hours, Intraprocedure (RAD), May repeat every 2 minutes for a maximum of 5 mg. Do not give if respiratory rate is less than 8 breaths/minute. Given 05/14/2023 4:07 PM CDT 1 mg multivitamin/mineral- tablet 1 tablet 1 tablet, small bowel tube, Daily, First dose on 05/12/23 at 0900, On hold since 05/18/2023 at 1217 until manually unheld Given 05/17/2023 8:45 A M CDT 1 tablet Given 05/16/2023 10:28 AM CDT 1 tablet Given 05/15/2023 8:14 AM CDT 1 tablet NaCl 0.9% infusion 75 mL/hr, intravenous, Continuous, Starting on 05/11/23 at 2231 New Bag 05/11/2023 10:47 PM CDT 75 mL/hr 75 mL/hr NaCl 0.9% infusion 75 mL/hr, intravenous, Continuous, Starting on 05/21/23 at 1015 New Bag 05/23/2023 1:20 AM CDT 75 mL/hr 75 mL/hr Rate/Dose Verify 05/22/2023 6:20 PM CDT 75 mL/hr 75 mL/h r New Bag 05/22/2023 12:52 PM CDT 75 mL/hr 75 mL/hr OLANZapine tablet 2.5 mg (ZyPREXA) 2.5 mg, small bowel tube, Daily at bedtime, First dose on 05/12/23 at 2100, On hold since 05/18/2023 at 1217 until manually unheld Given 05/16/2023 9:01 PM CDT 2.5 mg Given 05/15/2023 8:59 PM CDT 2.5 mg Given 05/14/2023 9:05 PM CDT 2.5 mg ondansetron (PF) injection 4 mg (ZOFRAN) 4 mg, intravenous, Every 4 hours PRN, nausea, vomiting, Starting on 05/11/23 at 2230 Given 05/11/2023 10:51 PM CDT 4 mg ondansetron (PF) injection 8 mg (ZOFRAN) 8 mg, intravenous, Every 6 hours PRN, nausea, vomiting, Starting on Sat05/12/23 at 0205 Given 05/13/2023 4:16 AM CDT 8 m g Given 05/12/2023 10:16 PM CDT 8 mg Given 05/12/2023 2:41 PM CDT 8 mg ondansetron (PF) injection 8 mg (ZOFRAN) 8 mg, intravenous, Every 6 hours, First dose (after last modification) on Sat05/13/23 at 1200 Given 05/14/2023 6 :02 AM CDT 8 mg Given 05/14/2023 12:02 AM CDT 8 mg Given 05/13/2023 5:52 PM CDT 8 mg palonosetron injection 0.25 mg (ALOXI) 0.25 mg, intravenous, Once, On Sat05/21/23 at 1600, For 1 dose Given 05/21/2023 3:54 PM CDT 0.[address] tablet 40 mg (PROTONIX) 40 mg, oral, Daily before breakfast, First dose (after last modification) on Sat05/22/23 at 1500, Swallow whole. Do NOT crush, chew, or split tablet. Given 05/23/2023 6:11 AM CDT 40 mg Given 05/22/2023 2:56 PM CDT 40 mg pentamidine nebulizer solution (NEBUPENT) 300 mg (NEBUPENT) 300 mg, inhalation, Once, On Sat05/20/23 at 1000, For 1 dose, Respiratory Therapy to Administer - Requires Respirgard II nebulizer If dispensed as powder vial, reconstitute each 300 mg vial with 6 mL SWFI to a final concentration of 50 mg/mL, using an 18 gauge needle. For INHALATION only. Protect from light, Indications: Prophylaxis, medical Given 05/20/2023 1:14 PM CDT 300 mg polatuzumab vedotin-piiq 150 mg in NaCl 0.9% 117.5 mL IVPB (POLIVY) 150 mg (rounded from 145.62 mg = 1.8 mg/kg ? 80.9 kg Treatment plan Measured weight), intravenous, at 78.3 mL/hr, Administer over 90 Minutes, Once, On Sat05/21/23 at 1630, For 1 dose, Polatuzumab must be administered using a dedicated infusion line equipped with a sterile, non-pyrogenic, low-protein binding in-line or add-on filter (0.2- or 0.22-micron pore size) and catheter. Do not mix Polatuzumab with or administer as an infusion with other drugs. Chemotherapy agent has a short stability. Please notify pharmacy when patient is ready to receive drug. New Bag 05/21/2023 5:29 PM CDT 150 mg 78.3 mL/hr potassium chloride ER tablet 20 mEq (KLORCON/K-TAB) 20 mEq, oral, Once, On Sat05/21/23 at 0700, For 1 dose, Swallow whole. Do NOT crush, chew, or split tablet. Given 05/21/2023 6:45 AM CDT 20 mEq cvngtnjbc-ooekzo-ttwnkgjkn 280-160-250 mg per packet 1 packet (PHOS-NAK) 1 packet, oral, Every 4 hours while awake, First dose on Sat05/21/23 at 0700, For 4 doses, Mix each packet in 75 mL water or juice then administer ordered dose. 250 mg of phosphate is equivalent to 8 mmol of phosphate., Monitor the following for replacement: Phosphorus Given 05/21/2023 9:46 AM CDT 1 packet Given 05/21/2023 6:45 AM CDT 1 packet ntofhxjxd-wzgzuv-cvnxolsvt 280-160-250 mg per packet 1 packet (PHOS-NAK) 1 packet, oral, Every 4 hours while awake, First dose on Sat05/21/23 at 2200, For 4 doses, Mix each packet in 75 mL water or juice then administer ordered dose. 250 mg of phosphate is equivalent to 8 mmol of phosphate., Monitor the following for replacement: Phosphorus Given 05/22/2023 2:02 PM CDT 1 packet Given 05/22/2023 9:00 AM CDT 1 packet Given 05/22/2023 6:20 AM CDT 1 packet prochlorperazine injection 5 mg (COMPAZINE) 5 mg, intravenous, Every 6 hours PRN, nausea, vomiting, Starting on Sat05/12/23 at 1228 Given 05/13/2023 3:02 AM CDT 5 m g Given 05/12/2023 7:14 PM CDT 5 mg Given 05/12/2023 1:04 PM CDT 5 mg prochlorperazine injection 5 mg (COMPAZINE) 5 mg, intravenous, Every 6 hours, First dose (after last modification) on Sat05/13/23 at 0945 Given 05/14/2023 10:18 AM CDT 5 mg Given 05/13/2023 10:33 PM CDT 5 mg Given 05/13/2023 4:23 PM CDT 5 mg prochlorperazine injection 5 mg (COMPAZINE) 5 mg, intravenous, Every 6 hours PRN, nausea, vomiting, Starting on Sat05/15/23 at 0945 Given 05/15/2023 9:25 AM CDT 5 mg rituximab-pvvr 700 mg in NaCl 0.9% IVPB (RUXIENCE) 700 mg (rounded from 742.5 mg = 375 mg/m2 ? 1.98 m2 Treatment Plan BSA from Measured weight), intravenous, Once, On 05/18/23 at 1530, For 1 dose, Initial infusion: Start rate of 50 mg/hour; if there is no reaction, increase the rate by 50 mg/hour increments every 30 minutes, to a maximum rate of 400 mg/hour., Restriction Criteria (Pharmacy will review and approve if criteria met): Meets rituximab algorithm criteria Rate/Dose Change 05/18/2023 8:43 PM CDT 400 mL/hr Rate/Dose Change 05/18/2023 8:00 PM CDT 350 mL/ hr Rate/Dose Change 05/18/2023 7:40 PM CDT 300 mL/ hr sennosides-docusate sodium 8.6-50 mg per tablet 1 tablet (SENOKOT-S) 1 tablet, small bowel tube, 2 times daily, First dose on Sat05/15/23 at 0900, On hold since Sat05/18/2023 at 1217 until manually unheld Given 05/17/2023 8:45 AM CDT 1 tablet Given 05/16/2023 9:01 PM CDT 1 tablet Given 05/16/2023 10:27 AM CDT 1 tablet sodium chloride (PF) 0.9 % injection 1-100 mL 1-100 mL, intravenous, Once, On 05/11/23 at 2301, For 1 dose, Imaging Protocol Orders Given 05/11/2023 11:06 PM CDT 50 mL sodium phosphate 15 mmol in NaCl 0.9% IVPB 15 mmol, intravenous, at 47.7 mL/hr, Administer over 2.2 Hours, Once, On Genie 05/16/23 at 0715, For 1 dose, Administer at 6.8 mmoL phosphate/hr. Max rate of 15 mmoL phosphate/hr. New Bag 05/16/2023 8:24 AM CDT 15 mmol 47.7 m L/hr thiamine injection 100 mg (VITAMIN B1) 100 mg, intravenous, Daily, First dose on Sat05/13/23 at 0900, For 5 doses Given 05/17/2023 8:45 AM CDT 100 mg Given 05/16/2023 10:27 AM CDT 100 mg Given 05/15/2023 8:04 AM CDT 100 mg documented in this encounter Active and Recently Administered Medications Times are shown in CDT. Scheduled Medication Order 05/21/2023 05/22/2023 05/23/2023 acetaminophen tablet 650 mg (TYLENOL) (COMPLETED) 650 mg, oral, Once, On Sat05/21/23 at 1600, For 1 dose, Administer 30 minutes prior to polatuzumab 1553 (Given - Provider: Morgan Alexander R.N.) acyclovir tablet 400 mg (ZOVIRAX) 400 mg, oral, 2 times daily, First dose on Sat05/21/23 at 1015, Drug Monitoring Program: Pharmacist to adjust medication dosing based on indication and drug clearance factors., Indications: Prophylaxis, medical 1008 (Given - Provider: Lisa Mackay R.N.)2002 (Given - Provider: Swapna Sinha R.N.) 0858 (Given - Provider: Lisa Mackay R.N.)2008 (Given - Provider: Swapna Sinha R.N.) 0848 (Given - Provider: Sol Gibbons R.N.) allopurinoL tablet 300 mg (ZYLOPRIM) 300 mg, oral, Daily, First dose on Sat05/21/23 at 1015 1008 (Given - Provider: Lisa Mackay R.N.) 0858 (Given - Provider: Lisa Mackay R.N.) 0848 (Given - Provider: Sol Gibbons R.N.) aspirin chewable tablet 81 mg 81 mg, oral, Daily, First dose (after last modification) on Sat05/23/23 at 0900 0848 (Given - Provider: Sol Gibbons R.N.) atorvastatin tablet 20 mg (LIPITOR) 20 mg, oral, Daily at bedtime, First dose (after last modification) on Sat05/22/23 at 2100, atorvaSTATin 20 mg oral daily was interchanged for simvastatin 5-40 mg oral daily 2008 (Given - Provider: Swapna Sinha R.N.) cycloPHOSphamide 1,500 mg in NaCl 0.9% 350 mL IVPB (CYTOXAN) (COMPLETED) 1,500 mg (rounded from 1,485 mg = 750 mg/m2 ? 1.98 m2 Treatment Plan BSA from Measured weight), intravenous, at 700 mL/hr, Administer over 30 Minutes, Once, On Sat05/21/23 at 2100, For 1 dose 2036 (New Bag - Provider: Swapna Sinha R.N.)2109 (Stopped - Provider: Swapna Sinha R.N.) diphenhydrAMINE injection 50 mg (BENADRYL) (COMPLETED) 50 mg, intravenous, Once, On Sat05/21/23 at 1600, For 1 dose, Administer 30 minutes prior to polatuzumab. 1554 (Given - Provider: Morgan Alexander R.N.) DOXOrubicin injection 100 mg (ADRIAMYCIN) (COMPLETED) 100 mg (rounded from 99 mg = 50 mg/m2 ? 1.98 m2 Treatment Plan BSA from Measured weight), intravenous, Administer over 10 Minutes, Once, On Sat05/21/23 at 2030, For 1 dose, Administer IV push through a free flowing IV of 0.9% NaCL over approximately 10 minutes via Y-site. Protect from light. 2007 (Given - Provider: Swapna Sinha RJohannaNJohanna) enoxaparin injection 40 mg (LOVENOX) 40 mg, subcutaneous, Every 24 hours scheduled, First dose on Sat05/20/23 at 1430 0803 (Given - Provider: Lisa Mackay R.N.) 0858 (Given - Provider: Lisa Mackay R.N.) 0848 (Given - Provider: Sol Gibbons R.N.) insulin aspart U-100 injection 0-13 Units (NovoLOG FlexPen) 0-13 Units, subcutaneous, 3 times daily, First dose (after last reorder) on Sat05/12/23 at 0800, Insulin Scale: Moderate Correction Scale, 140 - 179: 2 units, 180 - 219: 4 units, 220 - 259: 6 units, 260 - 299: 8 units, 300 - 339: 10 units, 340 - 379: 12 units, 380 - 399: 13 units, Greater than 399: Call service writing Insulin orders 0804 (Given - Provider: Lisa Mackay R.N.)1202 (Not Given - Provider: Micaela Wu RJohannaNJohanna - Reason: Contraindicated)1647 (Not Given - Provider: Morgan Alexander RDanuta - Reason: Order parameters not met - Comment: RMG 126) 0725 (Not Given - Provider: Lisa Mackay R.N. - Reason: Order parameters not met - Comment: RMG 77)1112 (Not Given - Provider: Lisa Mackay R.N. - Reason: Order parameters not met - Comment: RMG 116)1641 (Not Given - Provider: Lisa Mackay R.N. - Reason: Order parameters not met - Comment: RMG 108) 0848 (Not Given - Provider: Sol Gibbons RDanuta - Reason: Order parameters not met - Comment: glucose [phone] (Due) levothyroxine tablet 112 mcg (SYNTHROID, LEVOTHROID) (CANCELED) 112 mcg, small bowel tube, 3 times weekly (Once per day on Sat), First dose (after last modification) on Sat05/14/23 at 0900 0645 (Given - Provider: Alexus Stallings R.N.) levothyroxine tablet 112 mcg (SYNTHROID, LEVOTHROID) 112 mcg, oral, 3 times weekly (Once per day on Sat), First dose (after last modification) on Sat05/23/23 at 0700 0611 (Given - Provider: Swapna Sinha R.N.) levothyroxine tablet 224 mcg (SYNTHROID, LEVOTHROID) (CANCELED) 224 mcg, small bowel tube, 4 times weekly (Once per day on Sat), First dose on Sat05/15/23 at 0900 0619 (Given - Provider: Swapna Sinha R.N.) levothyroxine tablet 224 mcg (SYNTHROID, LEVOTHROID) 224 mcg, oral, 4 times weekly (Once per day on Sat), First dose (after last modification) on Sat05/24/23 at 0700 multivitamin/mineral-pre tablet 1 tablet 1 tablet, small bowel tube, Daily, First dose on Sat05/12/23 at 0900, On hold since Sat05/18/2023 at 1217 until manually unheld 0900 (Not Given - Provider: Lisa Mackay R.N. - Reason: See Provider Order) 0900 (Not Given - Provider: Lisa Mackay R.N. - Reason: See Provider Order) 0900 (Not Given - Provider: Sol Gibbons R.N. - Reason: See Provider Order - Comment: held by provider, not given)1520 (Unheld by provider - Provider: Discharge Provider, Automatic) OLANZapine tablet 2.5 mg (ZyPREXA) 2.5 mg, small bowel tube, Daily at bedtime, First dose on Sat05/12/23 at 2100, On hold since Sat05/18/2023 at 1217 until manually unheld 2100 (Not Given - Provider: Swapna Sinha R.N. - Reason: See Provider Order) 2100 (Not Given - Provider: Swapna Sinha R.N. - Reason: See Provider Order) 1520 (Unheld by provider - Provider: Discharge Provider, Automatic) palonosetron injection 0.25 mg (ALOXI) (COMPLETED) 0.25 mg, intravenous, Once, On Sat05/21/23 at 1600, For 1 dose 1554 (Given - Provider: Morgan Alexander R.N.) pantoprazole DR tablet 40 mg (PROTONIX) 40 mg, oral, Daily before breakfast, First dose (after last modification) on Sat05/22/23 at 1500, Swallow whole. Do NOT crush, chew, or split tablet. 1456 (Given - Provider: Lisa Mackay R.N.) 0611 (Given - Provider: Swapna Sinha R.N.) polatuzumab vedotin-piiq 150 mg in NaCl 0.9% 117.5 mL IVPB (POLIVY) (COMPLETED) 150 mg (rounded from 145.62 mg = 1.8 mg/kg ? 80.9 kg Treatment plan Measured weight), intravenous, at 78.3 mL/hr, Administer over 90 Minutes, Once, On Sat05/21/23 at 1630, For 1 dose, Polatuzumab must be administered using a dedicated infusion line equipped with a sterile, non-pyrogenic, low-protein binding in-line or add-on filter (0.2- or 0.22-micron pore size) and catheter. Do not mix Polatuzumab with or administer as an infusion with other drugs. Chemotherapy agent has a short stability. Please notify pharmacy when patient is ready to receive drug. 1729 (New Bag - Provider: Morgan Alexander R.N.)1859 (Stopped - Provider: Swapna Sniha R.N.) potassium chloride ER tablet 20 mEq (KLORCON/K-TAB) (COMPLETED) 20 mEq, oral, Once, On Sat05/21/23 at 0700, For 1 dose, Swallow whole. Do NOT crush, chew, or split tablet. 0645 (Given - Provider: Alexus Stallings R.N.) hggcygrdn-wrdxdi-krgtoat te 280-160-250 mg per packet 1 packet (PHOS-NAK) (CANCELED) 1 packet, oral, Every 4 hours while awake, First dose on Sat05/21/23 at 0700, For 4 doses, Mix each packet in 75 mL water or juice then administer ordered dose. 250 mg of phosphate is equivalent to 8 mmol of phosphate., Monitor the following for replacement: Phosphorus 0645 (Given - Provider: Aleuxs Stallings R.N.)0946 (Given - Provider: Lisa Mackay R.N.) lpzleqbij-ukbdtx-fjislbg te 280-160-250 mg per packet 1 packet (PHOS-NAK) () 1 packet, oral, Every 4 hours while awake, First dose on Sat05/21/23 at 2200, For 4 doses, Mix each packet in 75 mL water or juice then administer ordered dose. 250 mg of phosphate is equivalent to 8 mmol of phosphate., Monitor the following for replacement: Phosphorus 2214 (Not Given - Provider: Swapna Sinha R.N. - Reason: Other - Comment: patient asleep) 0620 (Given - Provider: Swapna Sinha R.N.)0900 (Given - Provider: Lisa Mackay R.N.)1402 (Given - Provider: Lisa Mackay R.N.) sennosides-docusate sodium 8.6-50 mg per tablet 1 tablet (SENOKOT-S) 1 tablet, small bowel tube, 2 times daily, First dose on Sat05/15/23 at 0900, On hold since 05/18/2023 at 1217 until manually unheld 0900 (Not Given - Provider: Lisa Mackay R.N. - Reason: See Provider Order)2100 (Not Given - Provider: Swapna Sinha R.N. - Reason: See Provider Order) 0900 (Not Given - Provider: Lisa Mackay R.N. - Reason: See Provider Order)2100 (Not Given - Provider: Swapna Sinha R.N. - Reason: See Provider Order) 0900 (Not Given - Provider: Sol Gibbons R.N. - Reason: See Provider Order - Comment: held by provider, not given)1520 (Unheld by provider - Provider: Discharge Provider, Automatic) Continuous Medication Order 05/21/2023 05/22/2023 05/23/2023 NaCl 0.9% infusion (CANCELED) 75 mL/hr, intravenous, Continuous, Starting on Sat05/21/23 at 1015 1007 (New Bag - Provider: Lisa Mackay R.N.)2328 (New Bag - Provider: Swapna Sinha R.N.) 1252 (New Bag - Provider: Lisa Mackay R.N.)1820 (Rate/Dose Verify - Provider: Lisa Mackay R.N.) 0120 (New Bag - Provider: Domonique Sinclair R.N.)0943 (Stopped - Provider: Sol Gibbons R.N.) PRN Medication Order 05/21/2023 05/22/2023 05/23/2023 acetaminophen tablet 500 mg (TYLENOL) 500 mg, small bowel tube, Every 6 hours PRN, mild pain or score 1-3 of 10, moderate pain or score 4-6 of 10, Starting on Sat05/12/23 at 0205 acetaminophen tablet 650 mg (TYLENOL) 650 mg, oral, Every 4 hours PRN, infusion related reactions or temperature greater than 38 degrees Celsius, Starting on Sat05/21/23 at 1401, For 4 doses alum-mag hydroxide-simeth 200-200-20 mg/5 mL suspension 30 mL (MAALOX) 30 mL, oral, Every 6 hours PRN, indigestion, Starting on Genie 05/23/23 at 0004 0012 (Given - Provid er: Swapna Sinha R.N.) amitriptyline tablet 12.5 mg (ELAVIL) 12.5 mg, small bowel tube, Bedtime PRN, neuropathy, Starting on Sat05/12/23 at 0205 diphenhydrAMINE injection 25 mg (BENADRYL) 25 mg, intravenous, Every 4 hours PRN, infusion related reactions. May repeat once if symptoms not relieved within 15 minutes of initial dose., Starting on Sat05/21/23 at 1401 melatonin tablet 5 mg 5 mg, small bowel tube, Bedtime PRN, sleep, Starting on Sat05/12/23 at 0205 meperidine (PF) injection 25 mg (DEMEROL) 25 mg, intravenous, Every 15 min PRN, Rigors. May repeat once (maximum total dose 50 mg)., Starting on Sat05/21/23 at 1401, For 2 doses, Restriction Criteria (Pharmacy will review and approve if criteria met): Prevention or treatment of drug-induced or cddir-utmwltt-mgqsdwy rigors prochlorperazine injection 5 mg (COMPAZINE) 5 mg, intravenous, Every 6 hours PRN, nausea, vomiting, Starting on Sat05/15/23 at 0945 documented in this encounter Additional Health Concerns Infection Onset Date Last Indicated Resolved Time COVID19 Pending 05/16/2023 05/16/2023 05/16/2023 3 :34 PM CDT Protective Environment 05/17/2023 05/17/2023 documented as of this encounter Care Teams Sports Director Relationship Specialty Start Date End Date Elsewhere, Pcp PCP - General Internal Medicine 05/11/23 09/13/23 documented as of this encounter
--- OUTSIDE RECORDS SUMMARY | 2023-10-05 13:04 | XMS_ITS | Encounter Summary ---
Author Name Unknown Organization [facility] Address [address] [place] [address] Care Team Providers Care [employer] Professor Name Role Phone Elsewhere, Pcp Primary Care Provider Unavailabl e Encounter Details Date Type Department Care Team (Latest Contact Info) Description 05/14/2023 1:31 PM CDT Anesthesia Event Division of Gastroenterology in [place], [place] [address] [place] [phone] Rosemarie Mujica, RYLEE, MAINTAINABILITY ENGINEER, DNAP [address] [place] [phone] Anesthesia Record Procedure Summary Procedure Name Responsible Anesthesiologist Anesthesia Start Time Anesthesia Stop Time EGD (ESOPHAGEALGASTRODU ODENOSCOPY) Rosemarie Mujica, RYLEE, SAL, DNAP 05/14/23 1331 05/14/23 1403 Events Date Time Event Comment 05/14/2023 1331 An Start Machine/Equipme nt Checked Infection Precautions Followed Procedure/Site Verified NPO Status Verified Supine Standard ASA Monitors Applied 1337 Turnover to Proceduralist 1341 Proc Start 1350 Proc Fin 1354 Turnover to ANE Staff 1355 an stop data 1403 An End I completed my handoff to the receiving staff during which we 1. Identified the patient 2. Identified the responsible provider 3. Reviewed the pertinent medical history 4. Discussed the surgical course 5. Reviewed intra-op anesthesia management and issues during anesthesia 6. Set expectations for post-procedure period 7. Allowed opportunity for questions and acknowledgement of understanding. Meds Name Total remimazolam 2.5 mg/mL injection 6 mg Lactated Ringers Free Drip 700 mL * Agents No agents on file. * Blood No blood administrations on file. Lines, Drains, and Airways Type Details Placement Removal Peripheral IV Placement Date: 11/01; Placement Time: 2246; Catheter Size: 20 G; Orientation: Right; Location: Antecubital; Removal Date: 05/16/23; Removal Time: 1306; Removal Reason: Leaking 05/11/23 2246 by Sravani Douglas R.NJohanna 05/16/23 1306 by Tu Guo R.NJohanna Peripheral IV Placement Date: 12/30; Placement Time: 1118; Catheter Size: 20 G; Orientation: Anterior, Left, Lower; Location: Forearm; Site Prep: Chlorhexidine (Preferred); Technique: Anatomical landmarks; Inserted by: [facility]; Insertion Attempts: 1; Removal Date: 05/16/23; Removal Time: 1306; Removal Reason: Leaking 05/13/23 1118 by Stephen Sánchez 05/16/23 1306 by Tu Guo R.N. NG/OG Tube 05/14/23; 0855; Nasogastric, Nasojejunal (Dobhoff); 16 Fr (9fr tail); Nare, Right; Small bore (ENFit??); 05/21/23; 1137 05/14/23 0855 by Lamar Clemens, R.NJohanna 05/21/23 1137 by Micaela Wu, R.N. documented in this encounter Social History [...] often do you attend chur ch or confucianism services? Never 01/10/2023 Do you belong to [...] Answer Date Recorded PHQ-2 Score 0 04/25/2020 [facility] [place] of Occupat ional Health - Occupational Stress [...] OR Notes * Anesthesia Postprocedure Evaluation - Rosemarie Mujica, COMMERCIAL CENTER MANAGER, MAINTAINABILITY ENGINEER, DNAP - 05/14/2023 2:03 PM CDT Patient: Hola Lau Procedure Summary Date: 05/14/23 Room / Location: Division of Gastroenterology in [place], [place] Anesthesia Start: 1330 Anesthesia Stop: 1402 Procedure: EGD (ESOPHAGEALGASTRODUODENOSCOPY) Diagnosis: Scheduled Providers: Rosemarie Mujica APRN, CRNA, DNAP Responsible Provider: Rosemarie Mujica APRN, CRNA, DNAP Anesthesia Type: MAC ASA Status: 4 Anesthesia Type: MAC Last vitals Vitals Value Taken Time BP 101/80 05/14/23 1403 Temp 36.5 ??C 05/14/23 1403 Pulse 87 05/14/23 1403 Resp 16 05/14/23 1403 SpO2 97 % 05/14/23 1403 Vitals shown include unvalidated device data. Please reference Vitals flowsheet for most recent vital signs. Anesthesia Post Evaluation Patient Disposition: general care unit Cardiovascular status: hemodynamics (HR & BP) acceptable Respiratory status: patent airway with spontaneous effort Temperature: normothermic Oxygen requirements: room air Level of consciousness: sedated but awakens easily Pain score: pain adequately controlled and/or at baseline Post Op nausea/vomiting: none Hydration status: euvolemic * Anesthesia Preprocedure Evaluation - Rosemarie Mujica APRN, CRNA, DNAP - 05/14/2023 1:32 PM CDT Preprocedure Anesthesia & H&P Assessment Procedure Summary Anesthesia Start Date/Time: 05/14/231330 Scheduled providers: Rosemarie Mujica APRN, CRNA, DNAP Procedure: EGD (ESOPHAGEALGASTRODUODENOSCOPY) Location: Division of Gastroenterology in [place], [place] Pertinent components of the patient's history [...] With Diabetic Neuropathy (HCC) (+) Hypothyroidism Postsurgical Other (+) Foot Drop Right (+) Nicotine Dependence Chewing Tobacco (+) Obesity Body Mass Index 30-39.9 Adult OBJECTIVE PHYSICAL EXAMINATION Airway (HEENT) Mallampati: II TM Distance: >3 FB Neck ROM: Full Mouth Opening: >3 cm Cardiovascular Rhythm: Regular Rate: Normal Cardiovascular Assessment: cardiovascular normal Functional Capacity: <4 METS Pulmonary Pulmonary Assessment: Clear General / Constitutional Constitutional Assessment: Normal General State of Health:: calm Neurological Neurologic Assessment: alert and alert and oriented x 3 Dental Dental Assessment: dentition intact ASSESSMENT / PLAN ANESTHESIA PLAN ASA: 4 Anesthesia Plan: MAC Patient seen and allergies reviewed, anesthesia plan and risks discussed directly with patient /legal guardian or through an spanish interpreter/translator. Risks/Benefits/Alternatives of Blood transfusion discussed with patient / legal guardian, includingan opportunity to ask questions and/or decline some or all transfusion therapies. The patient / legal guardian consented to the use of all blood products, as deemed medically necessary Approval to Proceed: approved for anesthesia documented in this encounter Plan of Treatment Upcoming Encounters Date Type Department Care Team (Latest Contact Info) Description 10/06/2023 9:04 AM GROUNDS PERSON - 10/06/2023 11:24 AM GROUNDS PERSON Surgery [facility] MAIN OR [address] [place] [phone] Cameron Saenz M.D. [address] [place] [phone] ABDOMINAL EXPLORATION, REMOVAL ABTHERA, POSSBLE BOWEL RESECTION, PROCEED INDICATED 10/11/2023 7:00 AM GROUNDS PERSON Appointment Department of Laboratory Medicine and Pathology, [facility], in [place], [place] [address] [place] [phone] Arti Epstein M.B.B.S. [address] [place] [phone] 10/11/2023 9:00 AM GROUNDS PERSON Office Visit Division of Hematology in [place], [place] [address] [place] [phone] Arti Epstein M.B.B.S. [address] [place] [phone] 10/11/2023 10:00 AM GROUNDS PERSON Infusion Department of Oncology in [place], [place] [address] [place] [phone] Bev Gifford APRN, C.N.P., M.S.N. [address] [place] [phone] 11/19/2023 10:00 AM CDT Office Visit Division of Endocrinology in [place], [place] [address] [place] [phone] West Mendoza APRN, C.N.P., M.S. [address] [place] [phone] 11/19/2023 2:30 PM CDT Comprehensive Visit Division of Hepatobiliary and Pancreas Surgery in [place], [place] [address] [place] [phone] Wesley Hamilton M.D. [address] [place] [phone] Scheduled Procedures Name Priority Associated Diagnoses Date/Ti me LAPAROTOMY - ABDOMINAL WASHOUT Ischemia Intestinal With Stricture (HCC) 10/06/2023 9:04 AM GROUNDS PERSON documented as of this encounter Visit Diagnoses Not on filedocumented in this encounter Administered Medications Inactive Administered Medications - up to 3 most recent administrations Medication Order MAR Action Action Date Dose Rate Site Lactated Ringer's intravenous, Continuous Infusion: Per Instructions PRN, Starting on Sat05/14/23 at 1331, Anesthesia Intra-op New Bag 05/14/2023 1:31 PM CDT remimazolam injection (BYFAVO) intravenous, As needed, Starting on Sat05/14/23 at 1337, Anesthesia Intra-op Given 05/14/2023 1:45 PM CDT 2 mg Given 05/14/2023 1:44 PM CDT 2 mg Given 05/14/2023 1:37 PM CDT 2 mg documented in this encounter Care Teams [employer] Professor Relationship Specialty Start Date End Date Elsewhere, Pcp PCP - General Internal Medicine 05/11/23 09/13/23 documented as of this encounter
--- OUTSIDE RECORDS SUMMARY | 2023-10-05 13:04 | XMS_ITS | Encounter Summary ---
Author Name Unknown Organization [facility] Address [address] [place] [address] Care Team Providers Care Textile Slitting Machine Operator Name Role Phone Elsewhere, Pcp Primary Care Provider Unavailabl e Encounter Details Date Type Department Care Team (Latest Contact Info) Description 05/14/2023 7:50 AM CDT Ancillary Procedure Department of Gastroenterology Social History [...] often do you attend chur ch or caodaism services? Never 01/10/2023 Do you belong to [...] Answer Date Recorded PHQ-2 Score 0 04/25/2020 [facility] [place] of Occupat ional Health - Occupational Stress [...] medical appointments or from getting medications? No 0512/2022 In the past 12 months, has l [...] Contact Info) Description 10/06/2023 9:04 AM CLINICAL PHARMACY TECHNICIAN - 10/06/2023 11:24 AM CLINICAL PHARMACY TECHNICIAN Surgery [facility] MAIN OR [address] [place] [phone] Cameron Saenz M.D. [address] [place] [phone] ABDOMINAL EXPLORATION, REMOVAL ABTHERA, POSSBLE BOWEL RESECTION, PROCEED INDICATED 10/11/2023 7:00 AM CLINICAL PHARMACY TECHNICIAN Appointment Department of Laboratory Medicine and Pathology, [facility], in [place], [place] [address] [place] [phone] Arti Epstein M.B.B.S. [address] [place] [phone] 10/11/2023 9:00 AM CLINICAL PHARMACY TECHNICIAN Office Visit Division of Hematology in [place], [place] [address] [place] [phone] Arti Epstein M.B.B.S. [address] [place] [phone] 10/11/2023 10:00 AM CLINICAL PHARMACY TECHNICIAN Infusion Department of Oncology in [place], [place] [address] [place] [phone] Bev Gifford APRN, Lola.N.P., M.S.N. [address] [place] [phone] 11/19/2023 10:00 AM CDT Office Visit Division of Endocrinology in [place], [place] [address] [place] [phone] West Mendoza APRN C.N.P., M.S. [address] [place] [phone] 11/19/2023 2:30 PM CDT Comprehensive Visit Division of Hepatobiliary and Pancreas Surgery in [place], [place] [address] [place] [phone] Wesley Hamilton M.D. [address] [place] [phone] Scheduled Procedures Name Priority Associated Diagnoses Date/Ti me LAPAROTOMY - ABDOMINAL WASHOUT Ischemia Intestinal With Stricture (HCC) 10/06/2023 9:04 AM CLINICAL PHARMACY TECHNICIAN documented as of this encounter Procedures Procedure Name Priority Date/Time Associated Diagnosis Comments GASTROENTEROLOGY IMAGE EXAM Routine 05/14/2023 7:50 AM CDT documented in this encounter Results * Upper GI endoscopy-Gastroenterology Image Exam (05/14/2023 7:50 AM CDT) 05/14/2023 7:50 AM CDT Narrative IIMS - 05/14/2023 9:21 AM CDT This order has been created and auto-finalized to support the import of images acquired without order. The clinical documentation to support these images can be found on the encounter that produced images. Provider Not In System IMG NON RAD IMAGI NG PROCEDURES IIMS NA documented in this encounter Visit Diagnoses Not on filedocumented in this encounter Care Teams Textile Slitting Machine Operator Relationship Specialty Start Date End Date Elsewhere, Pcp PCP - General Internal Medicine 05/11/23 09/13/23 documented as of this encounter
--- OUTSIDE RECORDS SUMMARY | 2023-10-05 13:04 | XMS_ITS | Encounter Summary ---
Author Name Unknown Organization [facility] Address [address] [place] [address] Care Team Providers Care Enrollment Eligibility Representative Name Role Phone Elsewhere, Pcp Primary Care Provider Unavailabl e Reason for Visit * Reason Onset Date Comments feeding questions 05/10/2023 Encounter Details Date Type Department Care Team (Latest Contact Info) Description 05/10/2023 Clinical Communication Department of Nutrition and Diabetes Education in [place], [place] [address] [place] [phone] Luz George M.S., RDN, LD [address] [place] [phone] feeding questions Social History Tobacco Use Types Packs/Day Years [...] How often do you attend chur or presybeterian services? Never 01/10/2023 Do you [...] Answer Date Recorded PHQ-2 Score 0 04/25/2020 [facility] of Occupat ional Health [...] place to sleep or slept in a half-way (including now)? No 01/10/2023 Nutrition Answer Date [...] encounter Miscellaneous Notes * Telephone Encounter - Chapis Almanzar, LAURA, LD - 05/10/2023 2:58 PM CDT Reviewed Authorization to Release Information in medical record. Authorization is on file. Problem: patient and his called back. Advice given: Discussed he doesn't need to infuse the formula remaining from before his procedure today and can restart his enteral feedings when he gets home. His did report his emesis was darkin color earlier today and did not look like his tube feedings. Encouraged him to slow the infusionrate of the enteral feedings as the goal if for him to receive his full nutrition and if tolerated he can advance to a nocturnal schedule. He did have a small bowel movement but he still may be constipated so they will monitor and if he doesn't have a bowel movement he may need a stool softener. Ifhis symptoms of nausea and vomiting persist suggested he be evaluated in the emergency department. Follow-up plan: They verbalized understanding. * Telephone Encounter - Chapis Almanzar RDN, LD - 05/10/2023 2:53 PM CDT Home Enteral Nutrition follow up communication per protocol. Left voicemail with contact information. documented in this encounter Plan of Treatment Upcoming Encounters Date Type Department Care Team (Latest Contact Info) Description 10/06/2023 9:04 AM INVESTIGATOR - 10/06/2023 11:24 AM INVESTIGATOR Surgery [facility] MAIN OR [address] [place] [phone] Cameron Saenz M.D. [address] [place] [phone] ABDOMINAL EXPLORATION, REMOVAL ABTHERA, POSSBLE BOWEL RESECTION, PROCEED INDICATED 10/11/2023 7:00 AM INVESTIGATOR Appointment Department of Laboratory Medicine and Pathology, [facility], in [place], [place] [address] [place] [phone] Arti Epstein M.B.B.S. [address] [place] [phone] 10/11/2023 9:00 AM INVESTIGATOR Office Visit Division of Hematology in [place], [place] [address] [place] [phone] Arti Epstein M.B.B.S. [address] [place] [phone] 10/11/2023 10:00 AM INVESTIGATOR Infusion Department of Oncology in [place], [place] [address] [place] [phone] Bev Gifford APRN, C.N.P., M.S.N. [address] [place] [phone] 11/19/2023 10:00 AM CDT Office Visit Division of Endocrinology in [place], [place] [address] [place] [phone] West Mendoza APRN, C.N.P., M.S. [address] [place] [phone] 11/19/2023 2:30 PM CDT Comprehensive Visit Division of Hepatobiliary and Pancreas Surgery in [address] [phone] Wesley Hamilton M.D. [address] [place] [phone] Scheduled Procedures Name Priority Associated Diagnoses Date/Ti me LAPAROTOMY - ABDOMINAL WASHOUT Ischemia Intestinal With Stricture (HCC) 10/06/2023 9:04 AM INVESTIGATOR documented as of this encounter Visit Diagnoses Not on filedocumented in this encounter Care Teams Enrollment Eligibility Representative Relationship Specialty Start Date End Date Elsewhere, Pcp PCP - General Internal Medicine 01/08/22 05/10/23 documented as of this encounter
--- OUTSIDE RECORDS SUMMARY | 2023-10-05 13:04 | XMS_ITS | Encounter Summary ---
Author Name Unknown Organization [facility] Address [address] [place] [address] Care Team Providers Care Professor Of Kinesiology Name Role Phone Elsewhere, Pcp Primary Care Provider Unavailabl e Encounter Details Date Type Department Care Team (Latest Contact Info) Description 05/14/2023 7:47 AM CDT - 05/14/2023 11:59 PM CDT Hospital Encounter Department of Radiology, [address], [place] [address] [place] [phone] Ashutosh Sommer M.D. [address] [place] [phone] Discharge Disposition: Home or Self Care Social [...] often do you attend chur ch or confucianist services? 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 60 tablet 0 05/23/2023 07/19/2023 allopurinoL (ZYLOPRIM) 300 mg tablet Administer 1 tablet (300 mg total) via small bowel tube daily. 30 tablet 0 05/07/2023 05/23/2023 aspirin 81 mg chewable tablet Administer 1 [...] not use during chemotherapy 0 07/24/2017 08/07/2023 lansoprazole (PREVACID) 3 mg/mL suspension Administer 10 mL (30 mg total) via small bowel tube every morning before breakfast. 300 mL 0 05/08/2023 05/23/2023 levothyroxine (SYNTHROID, LEVOTHROID) 112 mcg tablet Administer [...] (Latest Contact Info) Description 10/06/2023 9:04 AM DIESEL TRUCK CRANE OPERATOR - 10/06/2023 11:24 AM DIESEL TRUCK CRANE OPERATOR Surgery [facility] MAIN OR [address] [place] [phone] Cameron Saenz M.D. [address] [place] [address] ABDOMINAL EXPLORATION, REMOVAL ABTHERA, POSSBLE BOWEL RESECTION, PROCEED INDICATED 10/11/2023 7:00 AM DIESEL TRUCK CRANE OPERATOR Appointment Department of Laboratory Medicine and Pathology, [facility], in [place], [place] [address] [place] [phone] Arti Epstein M.B.B.S. [address] [place] [phone] 10/11/2023 9:00 AM DIESEL TRUCK CRANE OPERATOR Office Visit Division of Hematology in [place], [place] [address] [place] [phone] Arti Epstein M.B.B.S. [address] [place] [phone] 10/11/2023 10:00 AM DIESEL TRUCK CRANE OPERATOR Infusion Department of Oncology in [place], [place] [address] [place] [phone] Bev Gifford APRN, C.N.P., M.S.N. [address] [place] [phone] 11/19/2023 10:00 AM CDT Office Visit Division of Endocrinology in [place], [place] [address] [place] [phone] West Mendoza APRN C.N.P., M.S. [address] [place] [phone] 11/19/2023 2:30 PM CDT Comprehensive Visit Division of Hepatobiliary and Pancreas Surgery in [place], [place] [address] [place] [phone] Wesley Hamilton M.D. [address] [place] [phone] Scheduled Procedures Name Priority Associated Diagnoses Date/Ti me LAPAROTOMY - ABDOMINAL WASHOUT Ischemia Intestinal With Stricture (HCC) 10/06/2023 9:04 AM DIESEL TRUCK CRANE OPERATOR documented as of this encounter Procedures Procedure Name Priority Date/Time Associated Diagnosis Comments FL FLUORO LESS THAN 1 HOUR RAD - Routine (most inpatients and all outpatients) 05/14/2023 9:00 AM CDT documented in this encounter Results * FL Fluoro Less Than 1 Hour (05/14/2023 9:00 AM CDT) Narrative ERCP LOS RST - 05/14/2023 9:01 AM CDT This exam does not require a radiologist review or interpretation. Please refer to the patient's medical record on this date for clinical details. Ashutosh LOPEZ FLUOROSCOPY PROC EDURES ERCP LOS RST documented in this encounter Visit Diagnoses Not on filedocumented in this encounter Care Teams Professor Of Kinesiology Relationship Specialty Start Date End Date Elsewhere, Pcp PCP - General Internal Medicine 05/11/23 09/13/23 documented as of this encounter
--- OUTSIDE RECORDS SUMMARY | 2023-10-05 13:04 | XMS_ITS | Encounter Summary ---
Author Name Unknown Organization [facility] Address [address] [place] [id number] Care Team Providers Care Scrum Project Manager Name Role Phone Elsewhere, Pcp Primary Care Provider Unavailabl e Encounter Details Date Type Department Care Team (Latest Contact Info) Description 05/09/2023 3:20 PM CDT - 05/09/2023 11:59 PM CDT Hospital Encounter Department of Laboratory Medicine and Pathology, [facility] in [place], [place] [address] [place] [phone] Bety Castro M.D. 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 Never 01/10/2023 Do you belong to [...] Answer Date Recorded PHQ-2 Score 0 04/25/2020 [facility] of Occupat ional Health - Occupational Stress [...] to sleep or slept in a senior living (including now)? No 01/10/2023 Nutrition Answer Date [...] Sig Dispensed Refills Start Date End Date amitriptyline (ELAVIL) 25 mg tablet Administer 0.5 [...] of 10. 30 tablet 0 05/07/2023 08/07/2023 allopurinoL (ZYLOPRIM) 300 mg tablet Administer 1 [...] for nausea or vomiting. 0 04/27/2023 06/07/2023 vit27,calcium/iron/FA (multivitamin/mineral -) tablet Administer 1 tablet via small bowel tube daily. 90 tablet 3 05/07/2023 08/07/2023 simvastatin (ZOCOR) 20 mg tablet Administer 1 tablet (20 mg total) via small bowel tube at bedtime. 90 tablet 3 05/07/2023 08/07/2023 documented as of this encounter Plan of Treatment Upcoming Encounters Date Type Department Care Team (Latest Contact Info) Description 10/06/2023 9:04 AM DIAMOND WHEEL EDGER - 10/06/2023 11:24 AM DIAMOND WHEEL EDGER Surgery [facility]IN OR [address] [place] [phone] Cameron Saenz M.D. [address] [place] [phone] ABDOMINAL EXPLORATION, REMOVAL ABTHERA, POSSBLE BOWEL RESECTION, PROCEED INDICATED 10/11/2023 7:00 AM DIAMOND WHEEL EDGER Appointment Department of Laboratory Medicine and Pathology, [facility], in [place], [place] [address] [place] [phone] Arti Epstein M.B.B.S. [address] [place] [phone] 10/11/2023 9:00 AM DIAMOND WHEEL EDGER Office Visit Division of Hematology in [place], [place] [address] [place] [phone] Arti Epstein M.B.B.S. [address] [place] [phone] 10/11/2023 10:00 AM DIAMOND WHEEL EDGER Infusion Department of Oncology in [place], [place] [address] [place] [phone] Bev Gifford APRN, C.N.P., M.S.N. [address] [place] [phone] 11/19/2023 10:00 AM CDT Office Visit Division of Endocrinology in [place], [place] [address] [place] [phone] West Mendoza APRN, C.N.P., M.S. [address] [place] [phone] 11/19/2023 2:30 PM CDT Comprehensive Visit Division of Hepatobiliary and Pancreas Surgery in [place], [place] [address] [place] [phone] Wesley Hamilton M.D. 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) HIV-1/-2 AG AND AB SCREEN, PLASMA Routine 05/09/2023 3:57 PM CDT 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) HCV AB W/REFLEX TO HCV PCR, S Routine 05/09/2023 3:57 PM CDT 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) 25-HYDROXYVITAMIN D2 AND D3, S Routine 05/09/2023 3:57 PM CDT 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) CBC WITH DIFFERENTIAL, B Routine 023 3:57 PM CDT 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) GLUCOSE, FASTING, S/P Routine 05/09/2023 3:57 PM CDT 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) [id number] (BETA-2-M), S Routine 05/09/2023 3:57 PM CDT 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) URIC ACID, S/P Routine 05/09/2023 3:56 PM CDT 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) ASPARTATE AMINOTRANSFERASE (AST), S/P Routine 05/09/2023 3:56 PM CDT 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) POTASSIUM, S/P Routine 05/09/2023 3:56 PM CDT 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) ALKALINE PHOSPHATASE, S/P Routine 05/09/2023 3:56 PM CDT 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) LACTATE DEHYDROGENASE (LD), S Routine 05/09/2023 3:56 PM CDT 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) CREATININE WITH EGFR, S/P Routine 05/09/2023 3:56 PM CDT 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 If exposure to HIV infection occurred <14 days ago, contact the laboratory to request addition of HIV-1/HIV-2 RNA detection, Plasma (HIP12). Blood (Blood, Venous) 05/09/2023 3:57 PM CDT 05/09/2023 8:12 PM CDT Bety Castro M.D. LAB [facility] ROBIOLOGY - BLOOD ORDERABLES [facility] [address] [place] [address] [facility] [address] [place] [address] * HBs Antigen Scrn, Serum (05/09/2023 3:57 PM CDT) [facility] HBs Antigen Scrn, S Negative Negative 05/09/2023 9:24 PM CDT [facility] Blood (Blood, Venous) 05/09/2023 3:57 PM CDT 05/09/2023 8:11 PM CDT Bety Castro M.D. LAB [facility] ROBIOLOGY - BLOOD ORDERABLES Performing Organization Address [facility] Co de Phone Number [facility] [address] [place] [address] [facility] [address] [place] [address] * HCV Ab w/Reflex to HCV PCR, Serum (05/09/2023 3:57 PM CDT) [facility] HCV Ab, S Negative Negative 05/09/2023 9:40 PM CDT [facility] Comment:Dgmyho-ho-axdxxi rat io is <1.00. Blood (Blood, Venous) 05/09/2023 3:57 PM CDT 05/09/2023 8:11 PM CDT Bety Castro M.D. LAB [facility] ROBIOLOGY - BLOOD ORDERABLES Performing Organization Address [facility] Co de Phone Number [facility] [address] [place] [address] [facility] [address] [place] [address] * HBc Total Ab Scrn, Serum (05/09/2023 3:57 PM CDT) [facility] HBc Total Ab Scrn, S Negative Negative 05/09/2023 10:00 PM CDT [facility] Blood (Blood, Venous) 05/09/2023 3:57 PM CDT 05/09/2023 8:11 PM CDT Bety Castro M.D. LAB [facility] ROBIOLOGY - BLOOD ORDERABLES Performing Organization Address City/[facility] Co de Phone Number [facility] [address] [place] [address] [facility] [address] [place] [address] * Glucose, Fasting (05/09/2023 3:57 PM CDT) [facility] Glucose, P 90 70 - 100 mg/dL 05/09/2023 4:48 PM CDT DTL Last Intake 16 hr 05/09/2023 4:32 PM CDT DTL Blood (Blood, Venous) 05/09/2023 3:57 PM CDT 05/09/2023 4:32 PM CDT Bety Castro M.D. LAB BLO OD NON ADD-ON [facility] [address] [place] [address], [facility] DTL [facility] [address] [place] [address] * (ABNORMAL) CBC with Differential, Blood (05/09/2023 3:57 PM CDT) Hemoglobin 9.5(L) 13.2 - 16.6 g/dL 05/09/2023 5:18 PM CDT DTL Hematocrit 32.5(L) 38.3 - 48.6 % 05/09/2023 5:18 PM CDT DTL Erythrocytes 3.99(L) 4.35 - 5.65 x10(12)/L 05/09/2023 5:18 PM CDT DTL MCV 81.5 78.2 - 97.9 fL 05/09/2023 5:18 PM CDT DTL RBC Distrib Width 19.6(H) 11.8 - 14.5 % 05/09/2023 5:18 PM CDT DTL Platelet Count 309 135 - 317 x10(9)/L 05/09/2023 5:18 PM CDT DTL Leukocytes 6.5 3.4 - 9.6 x10(9)/L 05/09/2023 5:18 PM CDT DTL Neutrophils 4.42 1.56 - 6.45 x10(9)/L 05/09/2023 5:18 PM CDT [facility] Lymphocytes 1.07 0.95 - 3.07 x10(9)/L 05/09/2023 5:18 PM CDT DTL Monocytes 0.69 0.26 - 0.81 x10(9)/L 05/09/2023 5:18 PM CDT DTL Eosinophils 0.27 0.03 - 0.48 x10(9)/L 05/09/2023 5:18 PM CDT DTL Basophils 0.09(H) 0.01 - 0.08 x10(9)/L 05/09/2023 5:18 PM CDT DTL Blood (Blood, Venous) 05/09/2023 3:57 PM CDT 05/09/2023 4:17 PM CDT Bety Castro M.D. LAB BLO OD ADD-ON [facility] [address] [place] [address], [facility] DTL [facility] [address] [place] [address] [facility] [address] [place] [address] * (ABNORMAL) Nkcl-9-Afrnpgkbeneea (Beta-2-M) (05/09/2023 3:57 PM CDT) Pathologist [facility] Wmor-7-Livtqmt obulin, S 4.98(H) 1.21 - 2.70 mcg/mL 05/10/2023 8:41 AM CDT [facility] Blood (Blood, Venous) 05/09/2023 3:57 PM CDT 05/10/2023 6:12 AM CDT Bety Castro M.D. LAB BLO OD ADD-ON [facility] [address] [place] [address] [facility] [address] [place] [address] * 25-Hydroxyvitamin D2 and D3 (05/09/2023 3:57 PM CDT) Pathologist [facility] 25-Hydroxy D2 <4.0 ng/mL 05/16/2023 8:50 AM CDT [facility] 25-Hydroxy D3 53 ng/mL 05/16/2023 8:50 AM CDT [facility] 25-Hydroxy D Total 53 ng/mL 2022 8:50 AM CDT [facility] Comment: Interpretation: 51-80 ng/mL (increased risk of hypercalciuria) ----REFERENCE VALUE---- 25-HYDROXY D TOTAL (D2+D3) Optimum levels in the healthy population are 20-50, patients with bone disease may benefit from higher levels within this range. ----ADDITIONAL INFORMATION---- This test was developed and its performance characteristics determined by [facility] in a manner consistent with CLIA requirements. This test has not been cleared or approved by the U.S. Food and Drug Administration. Blood (Blood, Venous) 05/09/2023 3:57 PM CDT 05/10/2023 7:05 AM CDT Bety Castro M.D. LAB BLO OD ADD-ON Performing Organization Address [facility]/ZIP Co de Phone Number [facility] [address] [place] [address] [facility] [address] [place] [address] [place] [address] * Uric Acid (05/09/2023 3:56 PM CDT) Uric Acid, S 4.1 3.7 - 8.0 mg/dL 05/09/2023 4:52 PM CDT DTL Blood (Blood, Venous) 05/09/2023 3:56 PM CDT 05/09/2023 4:33 PM CDT Bety Castro M.D. LAB BLO OD ADD-ON Performing Organization Address City/[facility]/ZIP Co de Phone Number [facility] [address] [place] [address], [facility] LaboratoriesC[facility] [address] [place] [address] * Potassium (05/09/2023 3:56 PM CDT) Potassium, S 4.7 3.6 - 5.2 mmol/L 05/09/2023 4:52 PM CDT DTL Blood (Blood, Venous) 05/09/2023 3:56 PM CDT 05/09/2023 4:33 PM CDT Bety Castro M.D. LAB BLO OD ADD-ON Performing Organization Address City/[facility]/ZIP Co de Phone Number [facility] [address] [facility] 200 [place] [address] * LD (Lactate Dehydrogenase) (05/09/2023 3:56 PM CDT) Lactate Dehydrogenase (LD), S 189 122 - 222 U/L 05/09/2023 4:52 PM CDT DTL Blood (Blood, Venous) 05/09/2023 3:56 PM CDT 05/09/2023 4:33 PM CDT Bety Castro M.D. LAB BLO OD NON ADD-ON Performing Organization Address [facility] Co de Phone Number [facility] [address] [place] [address] * Creatinine with Estimated GFR (05/09/2023 3:56 PM CDT) Creatinine 1.02 0.74 - 1.35 mg/dL 05/09/2023 4:52 PM CDT DTL Estimated GFR (eGFR) 77 >=60 mL/min/BSA 05/09/2023 4:52 PM CDT DTL Comment: Estimated GFR calculated using the 2020 CKD_EPI creatinine equation. Blood (Blood, Venous) 05/09/2023 3:56 PM CDT 05/09/2023 4:33 PM CDT Bety Castro M.D. LAB BLO OD ADD-ON Performing Organization Address City/[facility]/ZIP Co de Phone Number [facility] 200 [place] [address], [facility] 200 [place] [address] * (ABNORMAL) Calcium, Total (05/09/2023 3:56 PM CDT) Calcium, Total, S 8.5(L) 8.8 - 10.2 mg/dL 05/09/2023 4:52 PM CDT DTL Blood (Blood, Venous) 05/09/2023 3:56 PM CDT 05/09/2023 4:33 PM CDT Bety Castro M.D. LAB BLO OD ADD-ON Performing Organization Address City/[facility]/ZIP Co de Phone Number [facility] 200 [place], [place] [address] 200 [place] [address] * Bilirubin, Total (05/09/2023 3:56 PM CDT) Bilirubin, Total, S 0.3 <=1.2 mg/dL 05/09/2023 4:52 PM CDT DTL Blood (Blood, Venous) 05/09/2023 3:56 PM CDT 05/09/2023 4:33 PM CDT Bety Castro M.D. LAB BLO OD ADD-ON [facility] 200 [place] [address], [address] [address] * AST (Aspartate Aminotransferase) (05/09/2023 3:56 PM CDT) Aspartate Aminotransferase (AST), S 23 8 - 48 U/L 05/09/2023 4:52 PM CDT DTL Blood (Blood, Venous) 05/09/2023 3:56 PM CDT 05/09/2023 4:33 PM CDT Bety Castro M.D. LAB BLO OD ADD-ON [facility] [address] [place] [address], [facility] 200 [place] [address] * Alkaline Phosphatase (05/09/2023 3:56 PM CDT) Alkaline Phosphatase, S 107 40 - 129 U/L 05/09/2023 4:52 PM CDT DTL Blood (Blood, Venous) 05/09/2023 3:56 PM CDT 05/09/2023 4:33 PM CDT Bety Csatro M.D. LAB BLO OD ADD-ON Performing Organization Address City/[facility]/ZIP Co de Phone Number 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
--- OUTSIDE RECORDS SUMMARY | 2023-10-05 13:04 | XMS_ITS | Encounter Summary ---
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 [address] [place] [address] 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 [address] [place] [phone] [facility] Referral ID Status Reason Start Date Expiration Date Visits Re quested Visits Authorized [id number] Closed 05/09/2023 05/08/2024 1 1 Encounter Details Date Type Department Care Team (Latest Contact Info) Description 05/10/2023 11:14 AM CDT - 05/10/2023 11:59 PM CDT Hospital Encounter Department of Radiology, [facility], in [place], [place] [address] [place] [phone] Bety Castro M.D. [address] [place] [address] Unspecified B Cell Lymphoma Intra Abdominal Lymph [...] often do you attend chur ch or bahai services? Never 01/10/2023 Do you belong to any clubs o r organizations such as jew groups, unions, fraternal or athletic groups, or [...] (Latest Contact Info) Description 10/06/2023 9:04 AM HUNTER GUIDE - 10/06/2023 11:24 AM HUNTER GUIDE Surgery [facility] MAIN OR [address] [place] [phone] Cameron Saenz M.D. [address] [place] [phone] ABDOMINAL EXPLORATION, REMOVAL ABTHERA, POSSBLE BOWEL RESECTION, PROCEED INDICATED 10/11/2023 7:00 AM HUNTER GUIDE Appointment Department of Laboratory Medicine and Pathology, [facility], in [place], [place] [address] [place] [phone] Arti Epstein M.B.B.S. [address] [place] [phone] 10/11/2023 9:00 AM HUNTER GUIDE Office Visit Division of Hematology in [address] [phone] Arti Epstein M.B.B.S. [address] [place] [phone] 10/11/2023 10:00 AM HUNTER GUIDE Infusion Department of Oncology in [place], [place] [address] [place] [phone] Bev Gifford APRN, C.N.P., M.S.N. [address] [place] [phone] 11/19/2023 10:00 AM CDT Office Visit Division of Endocrinology in [place], [place] [address] [place] [phone] West Mendoza APRN, C.N.P., M.S. [address] [place] [phone] 11/19/2023 2:30 PM CDT Comprehensive Visit Division of Hepatobiliary and Pancreas Surgery in [place], [place] [address] [place] [phone] Wesley Hamilton M.D. 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 Multiple other observations as detailed in the findings. Narrative 05/10/2023 6:46 PM CDT EXAM: ??PET CT SKULL TO THIGH FDG Serum glucose at time of F-18 FDG injection was 95 mg/dL. Patient followed standard dietary/fasting requirements for this exam. RADIOPHARMACEUTICAL/MEDS: Route: intravenous fludeoxyglucose F 18 injection ASSISTED (FDG F-18),10.06 millicurie TECHNIQUE: ??F-18 FDG PET/CT scan was performed from the orbits through the thighs with low dose, non-contrast, free-breathing CT images for attenuation correction and anatomic localization (AC/AL), with imaging beginning at approximately 60 minutes after radiotracer injection. COMPARISON: ??None INDICATION: Lymphoma. Initial treatment strategy. The patient reports no recent vaccinations. FINDINGS: ?? Duodenal mass centered on series 3 image 182 has an SUV max of 19.4. Several adjacent nodes show FDG uptake consistent with metastatic disease. For example, portacaval nodes on series 3 image 172 have an SUV max of 19.1. For example, the node posterior to the duodenum on series 3 image 195 has an SUV max of 22.3. The mostly necrotic 2.1 cm x 1.9 cm mesenteric node on series [address] abdomen/pelvis dated 04/29/2023 is poorly FDG avid as expected. A 0.4 cm retroperitoneal node to the left of the aorta on series 3 image 67 of 04/29/2023 has an SUV max of 3.4 which is significantly increased given its small size. Diffuse FDG uptake by the distended stomach appears abnormal; infiltrative malignancy is possible vs significant gastritis. The most intense uptake is in the gastric cardia (SUV max 9.3) and adjacent fundus (SUV max 7.7). Inflammatory appearing activity is noted throughout much of the esophagus. The approximately 3.5 cm x 1.1 cm node to the right of the lower esophagus on series 4 image 81 of 04/29/2023 has an SUV max of 3.1 and is indeterminate. The 1.6 cm x 0.9 cm right paratracheal node series 3 image 87 has an SUV max of 1.9 and is favored to be reactive. A short segment of small bowel in the anterior pelvis on series 12 image 243 has an SUV max of 17.8. A short segment of small bowel in the left side of the abdomen on series 12 image 193 has an SUV max of 11. Another segment of small bowel in the right anterior abdomen on series 12 image 181 has an SUV max of 11. Unable to find corresponding abnormalities on 04/29/2023, and these locations might be physiologic. A 0.9 cm x 0.6 cm nodule superior segment right lower pulmonary lobe series 3 image 101 has an SUV max of 2.9. A 1.5 cm x 0.9 cm nodule left lower lobe series 3 image 133 has an SUV max of 9. Another suspected nodule with an SUV max of 2.5 is located posterior to the lower right pulmonary hilum and is best seen on series 13 image 118. These are likely metastases. The cystic duct has an SUV max of 3.8 and may be inflamed. The gallbladder is distended and has subtle diffuse wall activity suggestive of inflammation. There is a minimal amount of adjacent fluid which is similar to series [address] dated 04/29/2023 and decreased compared to series 2 image [address] dated 04/22/2023. The gallbladder was also distended on both of those exams. There is a site of activity (SUV max 4.7) between the right kidney and adjacent colon which corresponds to the tip of the curvilinear opacity on series 3 image 64 of 04/29/2023. Focal activity overlying the left deltoid muscle on series 13 image 47 is favored to be inflammatory given the location. There is inflammatory activity in the left cervical facet joint on series 13 image 50, in the right acromioclavicular joint on series 13 image 63, and scattered elsewhere. Noted on low dose, unenhanced, free breathing, nondiagnostic quality CT images obtained for anatomic co-registration and attenuation correction purposes only: Nasojejunal tube. Reticular infiltrates both lungs. Musculoskeletal degenerative changes. Postop changes left shoulder. Lumbar laminectomies. Fat-containing inguinal hernias. Mitral annular calcifications, aortic cusp calcifications, coronary artery and other vascular calcifications. Distended gallbladder. Urinary bladder diverticulum. Mildly redundant sigmoid colon. Thyroidectomy. Procedure Note Capo Brooks M.D., Ph.D. - 05/10/2023 EXAM: PET CT SKULL TO THIGH FDG Serum glucose at time of F-18 FDG injection was 95 mg/dL. Patient followedstandard dietary/fasting requirements for this exam. RADIOPHARMACEUTICAL/MEDS: Route: intravenous fludeoxyglucose F 18 injection ASSISTED (FDG F-18),10.06 millicurie TECHNIQUE: F-18 FDG PET/CT scan was performed from the orbits through thethighs with low dose, non-contrast, free-breathing CT images for attenuation correction andanatomic localization (AC/AL), with imaging beginning at approximately 60 minutes after radiotracerinjection. COMPARISON: None INDICATION: Lymphoma. Initial treatment strategy. The patient reports no recent vaccinations. FINDINGS: Duodenal mass centered on series 3 image 182 has an SUV max of 19.4. Several adjacent nodes show FDG uptake consistent with metastatic disease.For example, portacaval nodes on series 3 image 172 have an SUV max of 19.1. For example, the nodeposterior to the duodenum on series 3 image 195 has an SUV max of 22.3. The mostly necrotic 2.1 cm x 1.9 cm mesenteric node on series 3 image 76of the CT abdomen/pelvis dated 04/29/2023 is poorly FDG avid as expected. A 0.4 cm retroperitonealnode to the left of the aorta on series 3 image 67 of 04/29/2023 has an SUV max of 3.4 which issignificantly increased given its small size. Diffuse FDG uptake by the distended stomach appears abnormal; infiltrativemalignancy is possible vs significant gastritis. The most intense uptake is in the gastric cardia(SUV max 9.3) and adjacent fundus (SUV max 7.7). Inflammatory appearing activity is noted throughoutmuch of the esophagus. The approximately 3.5 cm x 1.1 cm node to the right of the lower esophaguson series 4 image 81 of 04/29/2023 has an SUV max of 3.1 and is indeterminate. The 1.6 cm x 0.9 cmright paratracheal node series 3 image 87 has an SUV max of 1.9 and is favored to be reactive. A short segment of small bowel in the anterior pelvis on series 12 [id number] has an SUV max of 17.8. A short segment of small bowel in the left side of the abdomen on [id number] image 193 has an SUV max of 11. Another segment of small bowel in the right anterior abdomen onseries 12 image 181 has an SUV max of 11. Unable to find corresponding abnormalities on 04/29/2023,and these locations might be physiologic. A 0.9 cm x 0.6 cm nodule superior segment right lower pulmonary lobeseries 3 image 101 has an SUV max of 2.9. A 1.5 cm x 0.9 cm nodule left lower lobe series 3 image 133has an SUV max of 9. Another suspected nodule with an SUV max of 2.5 is located posterior to the lowerright pulmonary hilum and is best seen on series 13 image 118. These are likely metastases. The cystic duct has an SUV max of 3.8 and may be inflamed. The gallbladderis distended and has subtle diffuse wall activity suggestive of inflammation. There is aminimal amount of adjacent fluid which is similar to series [address] dated 04/29/2023 anddecreased compared to series 2 image [address] dated 04/22/2023. The gallbladder was alsodistended on both of those exams. There is a site of activity (SUV max 4.7) between the right kidney andadjacent colon which corresponds to the tip of the curvilinear opacity on series 3 image 64 of04/29/2023. Focal activity overlying the left deltoid muscle on series 13 image 47 isfavored to be inflammatory given the location. There is inflammatory activity in the left cervical facet joint on [id number] image 50, in the right acromioclavicular joint on series 13 image 63, and scattered elsewhere. Noted on low dose, unenhanced, free breathing, nondiagnostic quality CTimages obtained for anatomic co-registration and attenuation correction purposes only: Nasojejunaltube. Reticular infiltrates both lungs. Musculoskeletal degenerative changes. Postop changes leftshoulder. Lumbar laminectomies. Fat-containing inguinal hernias. Mitral annularcalcifications, aortic cusp calcifications, coronary artery and other vascular calcifications.Distended gallbladder. Urinary bladder diverticulum. Mildly redundant sigmoid colon. Thyroidectomy. IMPRESSION: Duodenal malignancy. Multiple other observations as detailed in thefindings. 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
--- OUTSIDE RECORDS SUMMARY | 2023-10-05 13:04 | XMS_ITS | Encounter Summary ---
Author Name Unknown Organization [facility] Address [address] [place] [phone] Care Team Providers Care Complex Manager Name Role Phone Elsewhere, Pcp Primary Care Provider Unavailabl e Encounter Details Date Type Department Care Team (Latest Contact Info) Description 05/14/2023 10:57 AM CDT Anesthesia Event Division of Gastroenterology in [place], [place] [address] [place] [phone] Morgan December M, ROLE PLAYER, FOURDRINIER OPERATOR, DNAP [address] [place] [phone] Anesthesia Record Procedure Summary Procedure Name Responsible Anesthesiologist Anesthesia Start Time Anesthesia Stop Time GIH PROC EGD ANESTHESIA Morgan December Barbara, ROLE PLAYER, SAL, DNAP 05/14/23 1057 05/14/23 1130 Events Date Time Event Comment 05/14/2023 1057 An Start Machine/Equipme nt Checked Infection Precautions Followed Procedure/Site Verified NPO Status Verified Supine Standard ASA Monitors Applied 1107 Turnover to Proceduralist 1108 Anesthesia Time Out 1109 Proc Start 1116 Proc Fin 1117 Turnover to ANE Staff 1125 an stop data 1130 An End I completed my handoff to the receiving staff during which we 1. Identified the patient 2. Identified the responsible provider 3. Reviewed the pertinent medical history 4. Discussed the surgical course 5. Reviewed intra-op anesthesia management and issues during anesthesia 6. Set expectations for post-procedure period 7. Allowed opportunity for questions and acknowledgement of understanding. Meds Name Total propofol 10 mg/mL injection 60 mg * Agents No agents on file. * Blood No blood administrations on file. Lines, Drains, and Airways Type Details Placement Removal Peripheral IV Placement Date: 11/01; Placement Time: 2246; Catheter Size: 20 G; Orientation: Right; Location: Antecubital; Removal Date: 05/16/23; Removal Time: 1306; Removal Reason: Leaking 05/11/23 2246 by Sravani Douglas R.NJohanna 05/16/23 1306 by Tu Guo RJohannaNJohanna Peripheral IV Placement Date: 12/30; Placement Time: 1118; Catheter Size: 20 G; Orientation: Anterior, Left, Lower; Location: Forearm; Site Prep: Chlorhexidine (Preferred); Technique: Anatomical landmarks; Inserted by: [facility] [place]; Insertion Attempts: 1; Removal Date: 05/16/23; Removal Time: 1306; Removal Reason: Leaking 05/13/23 1118 by Stephen Sánchez 05/16/23 1306 by Tu Guo RJohannaNJohanna NG/OG Tube 05/14/23; 0855; Nasogastric, Nasojejunal (Dobhoff); 16 Fr (9fr tail); Nare, Right; Small bore (ENFit??); 05/21/23; 1137 05/14/23 0855 by Lamar Clemens R.NJohanna 05/21/23 1137 by Micaela Wu R.N. documented in this encounter Social History [...] How often do you attend chur or mu-ism services? Never 01/10/2023 Do you [...] 04/25/2020 [facility] - Occupational [...] OR Notes * Anesthesia Postprocedure Evaluation - Ayala Mora APRN, CRNA - 05/14/2023 11:30 AM CDT Patient: Hola Lau Procedure Summary Date: 05/14/23 Room / Location: Department of Anesthesia, [place], [place] Anesthesia Start: 105 Anesthesia Stop: 1130 Procedure: BEDSIDE ANESTHESIA SCHEDULING Diagnosis: Scheduled Providers: Responsible Provider: Ayala Mora APRN, CRNA Anesthesia Type: MAC ASA Status: 4 Anesthesia Type: MAC Last vitals Vitals Value Taken Time BP 125/56 05/14/23 1030 Temp Pulse 79 05/14/23 1030 Resp SpO2 93 % 05/14/23 1030 Vitals shown include unvalidated device data. Please [...] status: euvolemic * Anesthesia Preprocedure Evaluation - Ayala Mora APRN, CRNA - 05/14/2023 11:10 AM CDT Preprocedure Anesthesia & H&P Assessment Procedure Summary Anesthesia Start Date/Time: 05/14/231056 Procedure: BEDSIDE ANESTHESIA SCHEDULING Location: Department of Anesthesia, [place], [place] Pertinent components of the patient's history [...] TM Distance: >3 FB Neck ROM: Full Cardiovascular Rhythm: Regular Rate: Normal Pulmonary Pulmonary Assessment: Clear General / Constitutional Constitutional Assessment: Overweight General State of Health:: calm Neurological Neurologic Assessment: alert and alert and oriented x 3 Dental Dental Assessment: dentition intact ASSESSMENT / PLAN ANESTHESIA PLAN ASA: 4 Anesthesia Plan: MAC Patient seen and allergies reviewed, anesthesia plan and risks discussed directly with patient /legal guardian or through an thread checker. The use of blood products not discussed Approval to Proceed: approved for anesthesia documented in this encounter Plan of Treatment Upcoming Encounters Date Type Department Care Team (Latest Contact Info) Description 10/06/2023 9:04 AM PANEL INSTRUMENT REPAIRER - 10/06/2023 11:24 AM PANEL INSTRUMENT REPAIRER Surgery [facility] MAIN OR [address] [place] [phone] Cameron Saenz M.D. [address] [place] [phone] ABDOMINAL EXPLORATION, REMOVAL ABTHERA, POSSBLE BOWEL RESECTION, PROCEED INDICATED 10/11/2023 7:00 AM PANEL INSTRUMENT REPAIRER Appointment Department of Laboratory Medicine and Pathology, [facility] in [place], [place] [address] [place] [phone] Arti Epstein M.B.B.S. [address] [place] [phone] 10/11/2023 9:00 AM PANEL INSTRUMENT REPAIRER Office Visit Division of Hematology in [address] [phone] Arti Epstein M.B.B.S. [address] [place] [phone] 10/11/2023 10:00 AM PANEL INSTRUMENT REPAIRER Infusion Department of Oncology in [place], [place] [address] [place] [phone] Bev Gifford APRN, C.N.P., M.S.N. [address] [place] [phone] 11/19/2023 10:00 AM CDT Office Visit Division of Endocrinology in [place], [place] [address] [place] [phone] West Mendoza APRN, C.N.P., M.S. [address] [place] [phone] 11/19/2023 2:30 PM CDT Comprehensive Visit Division of Hepatobiliary and Pancreas Surgery in [place], [place] [address] [place] [phone] Wesley Hamilton M.D. [address] [place] [phone] Scheduled Procedures Name Priority Associated Diagnoses Date/Ti me LAPAROTOMY - ABDOMINAL WASHOUT Ischemia Intestinal With Stricture (HCC) 10/06/2023 9:04 AM PANEL INSTRUMENT REPAIRER documented as of this encounter Visit Diagnoses Not on filedocumented in this encounter Administered Medications Inactive Administered Medications - up to 3 most recent administrations Medication Order MAR Action Action Date Dose Rate Site propofoL injection (DIPRIVAN) intravenous, As needed, Starting on Sat05/14/23 at 1107, Anesthesia Intra-op Given 05/14/2023 11:11 AM CDT 20 mg Given 05/14/2023 11:09 AM CDT 20 mg Given 05/14/2023 11:07 AM CDT 20 mg documented in this encounter Care Teams Complex Manager Relationship Specialty Start Date End Date Elsewhere, Pcp PCP - General Internal Medicine 05/11/23 09/13/23 documented as of this encounter
--- OUTSIDE RECORDS SUMMARY | 2023-10-05 13:04 | XMS_ITS | Encounter Summary ---
Author Name Unknown Organization [facility] Address [address] [place] [address] Care Team Providers Care Park Superintendent Name Role Phone Elsewhere, Pcp Primary Care Provider Unavailabl e Encounter Details Date Type Department Care Team (Late st Contact Info) Description 05/09/2023 Clinical Communication Department of Nutrition and Diabetes Education in [place], [place] [address] [place] [phone] Luz George M.S., RDN, LD [address] [place] [phone] Social History Tobacco Use Types Packs/Day Years [...] often do you attend chur ch or voodoo services? Never 01/10/2023 Do you belong to [...] Recorded PHQ-2 Score 0 04/25/2020 [facility] of Occupat ional Health - Occupational Stress [...] encounter Miscellaneous Notes * Telephone Encounter - Luz George M.S., RDN, LD - 05/09/2023 10:26 AM CDT Home Enteral Nutrition follow up communication per protocol. Recent hospitalization or ED visit : 04/29/23-05/07/23 : nausea and vomiting Please see dismissal summary dated 05/07/23 for details of patient's home enteral nutrition program and assessment. 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 Tube information: 12 [place] tube placed on 04/30/23. NUTRITION FOCUSED PHYSICAL FINDINGS: Mouth/Esophagus/Throat: not addressed today Nausea/vomiting: having some nausea this morning, did stop the tube feeding this morning with 1 carton left in the bag. Bowels: increased gas, diarrhea brown colored loose very loose. Urine/hydration: clear last night, Venting: not applicable Stoma status: not applicable Weight history: Estimated body mass index is 28.15 kg/m?? as calculated from the following: Height as of 04/30/23: 175.3 cm. Weight as of 04/30/23: 86.5 kg. Wt Readings from Last 6 Encounters: 04/30/23 86.5 kg 01/15/23 92.3 kg 07/18/22 94.4 kg 01/10/22 95.1 kg 07/13/21 103 kg 01/10/21 107 kg No home weight FOOD/NUTRITION RELATED HISTORY: Current Oral Intake: Not taking in anything orally, every thing through feeding tube including medications Oral vitamin, mineral, and/or herbal supplementation use: 100% is being met in tube feeding formula. Current Enteral/fluid intake:6 cartons of Nutren 1.5 run at 65 mL x 24 hours flush 120 mL 2 x daily. Patient report he is urinating frequently so he has not been doing all 6 flushes. Assessment: Mr. Lau is doing okay on tube feeding, he did have some nausea this morning with the tube feeding and is having a lot of gas. He has had only one bowel movement since discharge that was loose and water, he does not report feeling back up. Discussed watching how often he has a bowel movement, if goes without having one for 2-3 days recommend reaching out GI for stool softener recommendations. He is having some nausea, recommended holding off on cycling his tube feeding at this time, he understand he can cycle his tube feeds if feeling better. INTERVENTION: - Reviewed, rate tolerance, hydration needs - Did encouraged to flush the tube 6 times daily with 120 mL - Recommended getting a weight at clinic today, and then weighing himself at home 1-2 times a week. FOLLOW UP: will follow up in Clinic appointment current set for . Patient will reach out inhe has any questions or concerns. documented in this encounter Plan of Treatment Upcoming Encounters Date Type Department Care Team (Latest Contact Info) Description 10/06/2023 9:04 AM RETAIL CLIENT SOLUTIONS CONSULTANT - 10/06/2023 11:24 AM RETAIL CLIENT SOLUTIONS CONSULTANT Surgery [facility] MAIN OR [address] [place] [phone] Cameron Saenz M.D. [address] [place] [phone] ABDOMINAL EXPLORATION, REMOVAL ABTHERA, POSSBLE BOWEL RESECTION, PROCEED INDICATED 10/11/2023 7:00 AM RETAIL CLIENT SOLUTIONS CONSULTANT Appointment Department of Laboratory Medicine and Pathology, [facility], in [place], [place] [address] [place] [phone] Arti Epstein M.B.B.S. [address] [place] [phone] 10/11/2023 9:00 AM RETAIL CLIENT SOLUTIONS CONSULTANT Office Visit Division of Hematology in [address] [phone] Arti Epstein M.B.B.S. [address] [place] [phone] 10/11/2023 10:00 AM RETAIL CLIENT SOLUTIONS CONSULTANT Infusion Department of Oncology in [place], [place] [address] [place] [phone] Bev Gifford APRN, C.N.P., M.S.N. [address] [place] [phone] 11/19/2023 10:00 AM CDT Office Visit Division of Endocrinology in [place], [place] [address] [place] [phone] West Mendoza APRN, C.N.P., M.S. [address] [place] [phone] 11/19/2023 2:30 PM CDT Comprehensive Visit Division of Hepatobiliary and Pancreas Surgery in [place], [place] [address] [place] [phone] Wesley Hamilton M.D. [address] [place] [phone] Scheduled Procedures Name Priority Associated Diagnoses Date/Ti me LAPAROTOMY - ABDOMINAL WASHOUT Ischemia Intestinal With Stricture (HCC) 10/06/2023 9:04 AM RETAIL CLIENT SOLUTIONS CONSULTANT documented as of this encounter Visit Diagnoses Not on filedocumented in this encounter Care Teams Park Superintendent Relationship Specialty Start Date End Date Elsewhere, Pcp PCP - General Internal Medicine 01/08/22 05/10/23 documented as of this encounter
--- OUTSIDE RECORDS SUMMARY | 2023-10-05 13:04 | XMS_ITS | Encounter Summary ---
Author Name Unknown Organization [facility] Address [address] [place] [address] Care Team Providers Care Padder Cushion Name Role Phone Elsewhere, Pcp Primary Care Provider Unavailabl e Encounter Details Date Type Department Care Team (Latest Contact Info) Description 05/14/2023 8:00 AM CDT Anesthesia Event Division of Gastroenterology in [place], [place] [address] [place] [phone] Rosemarie Mujica, RYLEE, SHRIMP POND LABORER, DNAP [address] [place] [phone] Anesthesia Record Procedure Summary Procedure Name Responsible Anesthesiologist Anesthesia Start Time Anesthesia Stop Time EGD (ESOPHAGEALGASTRODU ODENOSCOPY) Rosemarie Mujica APRN, SAL, DNAP 05/14/23 0800 05/14/23 0913 Events Date Time Event Comment 05/14/2023 0800 An Start Machine/Equipme nt Checked Infection Precautions Followed Procedure/Site Verified NPO Status Verified Supine Standard ASA Monitors Applied 0807 An Induction 0811 An Intubation 0812 Turnover to Proceduralist 0817 Proc Start 0854 Proc Fin 0857 Turnover to ANE Staff 0907 Airway Removal Criteria Met 0907 Extubation/Airway Removed 0913 An End I completed my handoff to [...] mcg/mL 50 mcg lidocaine 2% (mg) injection 100 mg succinylcholine 20 mg/mL injection 100 m g propofol 10 mg/mL infusion 397.7 mg propofol 10 mg/mL injection 160 mg dexAMETHasone (DECADRON) injection 4 mg/ mL 8 mg Lactated Ringers Free Drip 700 mL * Agents No agents on file. * Blood No blood administrations on file. Lines, Drains, and Airways Type Details Placement Removal NG/OG Tube 05/06/23; 1335; Nasojejunal; 12 Fr; 140 cm; Nare, Right; 05/14/23; 0854 05/06/23 1335 by Patsy Colón R.N. 05/14/23 0854 by Lamar Clemens RJohannaNJohanna Peripheral IV Placement Date: 11/01; Placement Time: 2246; Catheter Size: 20 G; Orientation: Right; Location: Antecubital; Removal Date: 05/16/23; Removal Time: 1306; Removal Reason: Leaking 05/11/23 2246 by Sravani Douglas, R.NJohanna 05/16/23 1306 by Tu Guo RJohannaNJohanna Peripheral IV Placement Date: 12/30; Placement Time: 1118; Catheter Size: 20 G; Orientation: Anterior, Left, Lower; Location: Forearm; Site Prep: Chlorhexidine (Preferred); Technique: Anatomical landmarks; Inserted by: [facility]; Insertion Attempts: 1; Removal Date: 05/16/23; Removal Time: 1306; Removal Reason: Leaking 05/13/23 1118 by Stephen Sánchez 05/16/23 1306 by Tu Guo R.N. ETT Placement Date: 01/29; Placement Time: 0810 (created via procedure documentation); Mask Ventilation: Not attempted; Technique: Video laryngoscopy; Type: Standard ETT; Single Lumen Tube Size: 7.5 mm; Cuffed: Yes; Location: Oral; Grade View: Grade 1; Placement Verification: Bilateral breath sounds, Positive ETCO2, Symmetrical chest wall movement; Removal Date: 05/14/23; Removal Time: 0907 05/14/23 0810 by Rosemarie Mujica, COMPOSITION WORKER, SHRIMP POND LABORER, DNAP 05/14/23 0907 by Rosemarie Mujica APRN, SHRIMP POND LABORER, DNAP NG/OG Tube 05/14/23; 0855; Nasogastric, Nasojejunal (Dobhoff); 16 Fr (9fr tail); Nare, Right; Small bore (ENFit??); 05/21/23; 1137 05/14/23 0855 by Lamar Clemens, R.NJohanna 05/21/23 1137 by Micaela Wu RJohannaN. documented in this encounter Social History [...] any clubs o r organizations such as lutheran groups, unions, fraternal or athletic groups, or [...] [facility] of Occupat ional Health - [...] Notes * Anesthesia Postprocedure Evaluation - Rosemarie Mujica APRN, CRNA, DNAP - 05/14/2023 9:14 AM CDT Patient: Hola Lau Procedure Summary Date: 05/14/23 Room / Location: Division of Gastroenterology in [place], [place] Anesthesia Start: 0800 Anesthesia Stop: 912 Procedure: EGD (ESOPHAGEALGASTRODUODENOSCOPY) Diagnosis: Scheduled Providers: Rosemarie Mujica APRN, CRNA, CORTNEY Responsible Provider: Rosemarie Mujica APRN, CRNA, DNAP Anesthesia Type: general ASA Status: 4 Anesthesia Type: general Last vitals Vitals Value Taken Time BP 127/67 05/14/23 0915 Temp 36.6 ??C 05/14/23914 Pulse 85 05/14/23914 Resp 18 05/14/23914 SpO2 97 % 05/14/23914 Vitals shown include unvalidated device data. Please reference Vitals flowsheet for most recent vital signs. Anesthesia Post Evaluation Patient Disposition: general care unit Cardiovascular status: hemodynamics (HR & BP) acceptable Respiratory status: patent airway with spontaneous effort Temperature: normothermic Oxygen requirements: room air Level of consciousness: sedated but awakens easily Pain score: pain requiring further management Post Op nausea/vomiting: none Hydration status: euvolemic * Anesthesia Procedure Notes - Rosemarie Mujica APRN, CRNA, DNAP - 05/14/2023 8:11 AM CDTAssociated Order(s): Airway Airway Date/Time: 05/14/2023 8:10 AM Performed by: Rosemarie Mujica APRN, CRNA, DNAP Authorized by: Rosemarie Mujica APRN, CRNA, DNAP Patient location during procedure: OR / Procedure Area PROCEDURE DETAILS: Mask difficulty assessment: not attempted Final airway type: video laryngoscope Laryngeal Manipulation: no Final best view of glottic structures - Cormack/Lehane Score: grade 1 ETT location: oral VL device: glide scope [place] scope blade size: 4 Tube size: 7.5 ETT distance at teeth/gum: 21 Oral tube type: standard ETT Cuffed: yes Leak Test Performed: no Airway confirmation: bilateral breath sounds, positive ETCO2 and bilateral chest rise Other previous techniques attempted: none PRE PROCEDURE DETAILS: Pre evaluation for airway management: procedure Urgency: elective Preop assessment of probable difficulty: no difficulty anticipated Preoxygenation: bag valve mask SEDATION / ANESTHESIA Anesthesia method: anesthesia POST PROCEDURE DETAILS: Procedure outcome: successful Airway event: no complications * Anesthesia Preprocedure Evaluation - Rosemarie Mujica APRN, CRNA, DNAP - 05/14/2023 7:57 AM CDT Preprocedure Anesthesia & H&P Assessment Procedure Summary Date/Time: 05/14/23 0800 Scheduled providers: Rosemarie Mujica APRN, CRNA, DNAP Procedure: EGD (ESOPHAGEALGASTRODUODENOSCOPY) Location: Division of Gastroenterology in [place], [place] Pertinent components of the patient's history [...] With Diabetic Neuropathy (HCC) (+) Hypothyroidism Postsurgical Digestive (+) Mass Duodenum (+) Nausea And Vomiting (+) Vomiting Other (+) Foot Drop Right (+) Nicotine [...] ANESTHESIA PLAN ASA: 4 Anesthesia Plan: general Patient seen and allergies reviewed, anesthesia plan and risks discussed directly with patient /legal guardian or through an conference interpreter. Risks/Benefits/Alternatives of Blood transfusion discussed with patient [...] Contact Info) Description 10/06/2023 9:04 AM SENIOR NETWORK ARCHITECT - 10/06/2023 11:24 AM SENIOR NETWORK ARCHITECT Surgery [facility] MAIN OR [address] [place] [phone] Cameron Saenz M.D. [address] [place] [phone] ABDOMINAL EXPLORATION, REMOVAL ABTHERA, POSSBLE BOWEL RESECTION, PROCEED INDICATED 10/11/2023 7:00 AM SENIOR NETWORK ARCHITECT Appointment Department of Laboratory Medicine and Pathology, [facility], in [place], [place] [address] [place] [phone] Arti Epstein M.B.B.S. [address] [place] [phone] 10/11/2023 9:00 AM SENIOR NETWORK ARCHITECT Office Visit Division of Hematology in [place], [place] [address] [place] [phone] Arti Epstein M.B.B.S. [address] [place] [phone] 10/11/2023 10:00 AM SENIOR NETWORK ARCHITECT Infusion Department of Oncology in [place], [place] [address] [place] [phone] Bev Gifford APRN, C.N.P., M.S.N. [address] [place] [phone] 11/19/2023 10:00 AM CDT Office Visit Division of Endocrinology in [place], [place] [address] [place] [phone] West Mendoza APRN, C.N.P., M.S. [address] [place] [phone] 11/19/2023 2:30 PM CDT Comprehensive Visit Division of Hepatobiliary and Pancreas Surgery in [address] [phone] Wesley Hamilton M.D. [address] [place] [phone] Scheduled Procedures Name Priority Associated Diagnoses Date/Ti me LAPAROTOMY - ABDOMINAL WASHOUT Ischemia Intestinal With Stricture (HCC) 10/06/2023 9:04 AM SENIOR NETWORK ARCHITECT documented as of this encounter Procedures Procedure Name Priority Date/Time Associated Diagnosis Comments LDA ANE ENDOTRACHEAL AIRWAY Routine 05/14/2023 8:10 AM CDT documented in this encounter Results * LDA ANE ENDOTRACHEAL AIRWAY (05/14/2023 8:10 AM CDT) Narrative Rosemarie Mujica APRN, CRNA, DNAP - 05/14/2023 8:10 AM CDT Rosemarie Mujica APRN, CRNA, DNAP ? 05/14/2023 ??8:12 AM Airway Date/Time: 05/14/2023 8:10 AM Performed by: Rosemarie Mujica APRN, CRNA, DNAP Authorized by: Roseamrie Mujica APRN, CRNA, DNAP ?? Patient location during procedure: OR / Procedure Area PROCEDURE DETAILS: Mask difficulty assessment: not attempted Final airway type: video laryngoscope Laryngeal Manipulation: no ?? Final best view of glottic structures - Cormack/Lehane Score: grade 1 ETT location: oral VL device: glide scope [place] scope blade size: 4 Tube size: 7.5 ETT distance at teeth/gum: 21 Oral tube type: standard ETT Cuffed: yes Leak Test Performed: no ?? Airway confirmation: bilateral breath sounds, positive ETCO2 and bilateral chest rise Other previous techniques attempted: none PRE PROCEDURE DETAILS: Pre evaluation for airway management: procedure Urgency: elective Preop assessment of probable difficulty: no difficulty anticipated Preoxygenation: bag valve mask SEDATION / ANESTHESIA Anesthesia method: anesthesia POST PROCEDURE DETAILS: ? Procedure outcome: successful ?? Airway event: no complications Rosemarie Mujica APRN, CRNA, DNAP ANESTHE MANINDER ORDERABLES documented in this encounter Visit Diagnoses Not on filedocumented in this encounter Administered Medications Inactive Administered Medications - up to 3 most recent administrations Medication Order MAR Action Action Date Dose Rate Site dexAMETHasone injection (DECADRON) intravenous, As needed, Starting on Sat05/14/23 at 0821, Anesthesia Intra-op Given 05/14/2023 8:21 AM CDT 8 mg fentaNYL injection (SUBLIMAZE) intravenous, As needed, Starting on Sat05/14/23 at 0819, Anesthesia Intra-op Given 05/14/2023 8:19 AM CDT 50 mcg Lactated Ringer's intravenous, Continuous Infusion: Per Instructions PRN, Starting on Sat05/14/23 at 0800, Anesthesia Intra-op New Bag 05/14/2023 8:40 AM CDT New Bag 05/14/2023 8:00 AM CDT lidocaine (PF) (cardiac) injection intravenous, As needed, Starting on Sat05/14/23 at 0811, Anesthesia Intra-op Given 05/14/2023 8:11 AM CDT 100 mg propofol 10 mg/mL infusion (DIPRIVAN) intravenous, Continuous Infusion: Per Instructions PRN, Starting on Sat05/14/23 at 0812, Anesthesia Intra-op Rate/Dose Change 05/14/2023 8:25 AM CDT 100 mcg/kg/min 49.2 mL/hr New Bag 05/14/2023 8:12 AM CDT 150 mcg/kg/min 73.8 mL/h r propofoL injection (DIPRIVAN) intravenous, As needed, Starting on Sat05/14/23 at 0811, Anesthesia Intra-op Given 05/14/2023 8:11 AM CDT 160 mg succinylcholine (PF) injection (ANECTINE) intravenous, As needed, Starting on Sat05/14/23 at 0811, Anesthesia Intra-op Given 05/14/2023 8:11 AM CDT 100 mg documented in this encounter Care Teams Padder Cushion Relationship Specialty Start Date End Date Elsewhere, Pcp PCP - General Internal Medicine 05/11/23 09/13/23 documented as of this encounter
--- OUTSIDE RECORDS SUMMARY | 2023-10-05 13:04 | XMS_ITS | Encounter Summary ---
Author Name Unknown Organization [facility] Address [address] [place] [address] Care Team Providers Care Commercial Loan Analyst Name Role Phone Elsewhere, Pcp Primary Care Provider Unavailabl e Reason for Visit * Reason Onset Date Comments Urgent need for TTE/Ultrasound for pre-chemo Encounter Details Date Type Department Care Team (Latest Contact Info) Description 05/09/2023 Clinical Communication Division of Hematology in [place], [place] [address] [place] [phone] Bety Castro M.D. [address] [place] [phone] Urgent need for TTE/Ultrasound for pre-chemo Social History Tobacco Use Types Packs/Day Years [...] often do you attend chur ch or scientology services? Never 01/10/2023 Do you belong to any clubs o r organizations such as tenriism groups, unions, fraternal or athletic groups, or [...] Score 0 04/25/2020 [facility] [place] of Occupat ional Health - Occupational Stress [...] (Latest Contact Info) Description 10/06/2023 9:04 AM ANTIQUE DEALER - 10/06/2023 11:24 AM ANTIQUE DEALER Surgery [facility] MAIN OR [address] [place] [phone] Cameron Saenz M.D. [address] [place] [phone] ABDOMINAL EXPLORATION, REMOVAL ABTHERA, POSSBLE BOWEL RESECTION, PROCEED INDICATED 10/11/2023 7:00 AM ANTIQUE DEALER Appointment Department of Laboratory Medicine and Pathology, [facility], in [place], [place] [address] [place] [phone] Arti Epstein M.B.B.S. [address] [place] [phone] 10/11/2023 9:00 AM ANTIQUE DEALER Office Visit Division of Hematology in [place], [place] [address] [place] [phone] Arti Epstein M.B.B.S. [address] [place] [phone] 10/11/2023 10:00 AM ANTIQUE DEALER Infusion Department of Oncology in [place], [place] [address] [place] [phone] Bev Gifford APRN, C.N.P., M.S.N. [address] [place] [phone] 11/19/2023 10:00 AM CDT Office Visit Division of Endocrinology in [place], [place] [address] [place] [phone] West Mendoza APRN, C.N.P., M.S. [address] [place] [phone] 11/19/2023 2:30 PM CDT Comprehensive Visit Division of Hepatobiliary and Pancreas Surgery in [place], [place] [address] [place] [phone] Wesley Hamilton M.D. [address] [place] [phone] Scheduled Procedures Name Priority Associated Diagnoses Date/Ti me LAPAROTOMY - ABDOMINAL WASHOUT Ischemia Intestinal With Stricture (HCC) 10/06/2023 9:04 AM ANTIQUE DEALER documented as of this encounter Visit Diagnoses Not on filedocumented in this encounter Additional Health Concerns Infection Onset Date Last Indicated Resolved Time COVID19 Pending 05/16/2023 05/16/2023 05/16/2023 3 :34 PM CDT Protective Environment 05/17/2023 05/17/2023 documented as of this encounter Care Teams Commercial Loan Analyst Relationship Specialty Start Date End Date Elsewhere, Pcp PCP - General Internal Medicine 05/11/23 09/13/23 documented as of this encounter
--- OUTSIDE RECORDS SUMMARY | 2023-10-05 13:05 | XMS_ITS | Encounter Summary ---
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 [address] [place] [address] [facility] Referral ID Status Reason Start Date Expiration Date Visits Re quested Visits Authorized [id number] Closed 05/07/2023 05/06/2024 1 1 Encounter Details Date Type Department Care Team (Latest Contact Info) Description 05/09/2023 1:30 PM CDT Comprehensive Visit Division of Hematology in [place], [place] [address] [place] [phone] Amy Coley M.D. [address] [place] [phone] Bety Crowell M.D. 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); Examination Prior To Chemotherapy Social History Tobacco Use Types Packs/Day [...] any clubs o r organizations such as gnosticist groups, unions, fraternal or athletic groups, or [...] 0 04/25/2020 [facility] [...] Sign Reading Time Taken Comments Blood Pressure 111/62 05/09/2023 1:37 PM CDT Pulse 78 05/09/2023 1:37 PM CDT Temperature 36.2 ??C (97.2 ??F) 05/09/2023 1:37 PM CD T Respiratory Rate - - Oxygen Saturation - - Inhaled Oxygen Concentration - - Weight 86.8 kg (191 lb 5.8 oz) 05/09/2023 1:37 P M CDT Height 172 cm (5' 7.72) 05/09/2023 1:37 PM CDT Body Mass Index 29.34 05/09/2023 1:37 PM CDT documented in this encounter Consult Notes * Bety Crowell M.D. - 05/09/2023 1:30 PM CDT SUBJECTIVE CHIEF COMPLAINT / REASON FOR VISIT Mr. Lau is a 72 yo man who has been feeling unwell for the last 4 weeks with mostly postprandial nausea, vomiting, abdominal pain and inability to tolerate PO intake. Since he January 2023 he lost about 40 pounds but denies fever, night sweats or palpable lumps. He was hospitalized during mid April 2023 at [facility] due to his nausea, vomiting and [...] evidence of cholecystitis. During his hospital stay [facility], he had fevers and low hemoglobin in the 8-9 range as well as an ROMEO that improved with fluids. EGD was performed on 04/24/2023 in [facility] which revealed a duodenal necrotizing ulcer which was biopsies however that was read as a necroinflammatory ulcer with duodenal mucosa, acute and chronic inflammation without evidence of active malignancy. After he was treated with PPI and antibiotics despite no source of infection was identifies; he was discharged on 04/27/2023. He was readmitted on 04/29/2023 after he was seen that morning in [facility] and found to be hypotensive with a blood pressure of 78/39, thus he went to [facility] ED where he was hypotensive with SBPin [...] discharged home on 05/07/23 with enteral nutrition. PMH: Prior CVA, HTN , HLD, thyroids cancer s/p thyroidectomy, gout PSH: back surgery, bilateral should repair Family history: No family history of lymphoma noted Social history: Quit smoking tobacco in his 40s, no drug or alcohol dependence HISTORY OF PRESENT ILLNESS Oncology History No history exists. INTERVAL HISTORY Past Medical History: Diagnosis Date [...] Transient Ischemic Attack 2002 OBJECTIVE PHYSICAL EXAM Blood pressure 111/62, pulse 78, temperature 36.2 ??C, temperature source Tympanic, height 172 cm, weight 86.8 kg. General: Alert and Orientated, no acute distress. He seems to be weak requiring help moving from the couch to the chair Eyes: no conjunctival icterus, PERRL ENT: Moist [...] affect, answers questions appropriately ASSESSMENT / PLAN Mr. Lau is a 72 yo man who has been feeling unwell for the last 4 weeks with mostly postprandial nausea, vomiting, abdominal pain and inability to tolerate PO intake. Since January 2023 he lost about40 pounds. He was hospitalized twice in April for these symptoms in addition to having new anemia with his Hb now being between 7-9 g/dl. CT scan of the A/P demonstrated the presence of a mass in the third part of the duodenum with a mildly dilated common bile duct and evidence of multiple enlarged paraduodenal and superior mesenteric lymph nodes. EGD was performed on 04/24/2023 in [facility] which revealed a duodenal necrotizing ulcer which was biopsies however that was read as a necroinflammatory ulcer with duodenal mucosa, acute and chronic inflammation without evidence of active malignancy. Repeat EGD but w/ extended push enteroscopy was performed on 04/30/2023 which identified large circumferential infiltrative and ulcerated mass with no bleeding in the third portion of duodenum. Biopsies were obtained and sent for histopathology review with results coming back suspicious for B cell lymphoma but tissue was inadequate due to crushed artifact and degenerative changes. Lymphoid infiltrates stained positive extensively for CD20, PAX5, CD10, BCL6, and BCL2, and had an apparent proliferative rate by Ki-67 of at least 60%. Given his nausea, vomiting and PO intolerance; NG tube was placed for tube feeds. He was discharged home on 05/07/23 with enteral nutrition. #Suspicion for B cell lymphoma Plan: -As noted above, there is a suspicion for for B -cell lymphoma based on pathology of artifact and crushed tissue If this is lymphoma, it is behaving like an aggressive B cell lymphoma subtype.Howeverto confirm that and delineate which subtype we will need to obtain more tissue via biopsy. -We will obtain PET CT tomorrow morning , this will guide us towards the site that is most FDG avidand most amenable for biopsy -We will obtain a bone marrow biopsy. This is set for 05/16/2023 -Obtaining LDH, HIV testing, viral hepatitis testing and cardiac echocardiogram. Patient discussed with Associated attestation - Garcia Flores M.D., Ph.D. - 05/10/2023 9:45 AM CDT I saw the patient in conjunction with Dr. Goldberg. The patient has a history of weight loss, nausea, vomiting and abdominal discomfort. A CT scan of the abdomen showed a masslike thickening of the duodenum. The patient was also found to be anemic. Endoscopic biopsy showed features suspicious for a B-cell lymphoma but a definitive diagnosis was difficult due to crush artifact. The patient is theref ore referred to the [facility] for an evaluation. We recommended to the patient that he undergo additional staging evaluation including a PET scan and bone marrow aspirate and biopsy. Based on the PET scan results, we plan to biopsy the most FDG avid area. Further treatment would then depend on the biopsy results. This was reviewed with the patient and his family and all questions were answered. documented in this encounter Miscellaneous Notes * Addendum Note - Bety Crowell M.D. - 05/09/2023 1:30 PM CDT Addended by: BETY CROWELL on: 05/10/2023 02:56 PM Modules accepted: Orders documented in this encounter Plan of Treatment Upcoming Encounters Date Type Department Care Team (Latest Contact Info) Description 10/06/2023 9:04 AM SENIOR ANALYTICAL CHEMIST - 10/06/2023 11:24 AM SENIOR ANALYTICAL CHEMIST Surgery [facility] ROM[facility] MAIN OR [address] [place] [phone] Cameron Saenz M.D. [address] [place] [phone] ABDOMINAL EXPLORATION, REMOVAL ABTHERA, POSSBLE BOWEL RESECTION, PROCEED INDICATED 10/11/2023 7:00 AM SENIOR ANALYTICAL CHEMIST Appointment Department of Laboratory Medicine and Pathology, [facility], in [address] [phone] Arti Epstein M.B.B.S. [address] [place] [phone] 10/11/2023 9:00 AM SENIOR ANALYTICAL CHEMIST Office Visit Division of Hematology in [address] [phone] Arti Epstein M.B.B.S. [address] [place] [phone] 10/11/2023 10:00 AM SENIOR ANALYTICAL CHEMIST Infusion Department of Oncology in [address] [phone] Bev Gifford APRN, C.N.P., M.S.N. [address] [place] [phone] 11/19/2023 10:00 AM CDT Office Visit Division of Endocrinology in [place], [place] [address] [place] [phone] West Mendoza APRN, C.N.P., M.S. [address] [place] [phone] 11/19/2023 2:30 PM CDT Comprehensive Visit Division of Hepatobiliary and Pancreas Surgery in [place], [place] [address] [place] [phone] Wesley Hamilton M.D. [address] [place] [phone] Scheduled Procedures Name Priority Associated Diagnoses Date/Ti me LAPAROTOMY - ABDOMINAL WASHOUT Ischemia Intestinal With Stricture (HCC) 10/06/2023 9:04 AM SENIOR ANALYTICAL CHEMIST documented as of this encounter Results * (ABNORMAL) CBC with Differential, Blood (06/10/2023 9:11 AM CDT) Hemoglobin 9.9(L) 13.2 - 16.6 g/dL 06/10/2023 10:11 AM CDT DTL Hematocrit 32.3(L) 38.3 - 48.6 % 06/10/2023 10:11 AM CDT DTL Erythrocytes 3.93(L) 4.35 - 5.65 x10(12)/L 06/10/2023 10:11 AM CDT DTL MCV 82.2 78.2 - 97.9 fL 06/10/2023 10:11 AM CDT DTL RBC Distrib Width 22.4(H) 11.8 - 14.5 % 06/10/2023 11:11 AM CDT DTL Platelet Count 416(H) 135 - 317 x10(9)/L 06/10/2023 10:11 AM CDT DTL Leukocytes 15.6(H) 3.4 - 9.6 x10(9)/L 06/10/2023 10:11 AM CDT DTL Neutrophils 14.20(H) 1.56 - 6.45 x10(9)/L 06/10/2023 11:11 AM CDT [facility] Comment:Rechecked Lymphocytes 0.54(L) 0.95 - 3.07 x10(9)/L 06/10/2023 11:11 AM CDT DTL Monocytes 0.58 0.26 - 0.81 x10(9)/L 06/10/2023 11:11 AM CDT DTL Eosinophils 0.14 0.03 - 0.48 x10(9)/L 06/10/2023 11:11 AM CDT DTL Basophils 0.17(H) 0.01 - 0.08 x10(9)/L 06/10/2023 11:11 AM CDT DTL Blood (Blood, Venous) 06/10/2023 9:11 AM CDT 06/10/2023 9:44 AM CDT Bety Crowell M.D. LAB BLO OD ADD-ON [facility] [address] [place] [address], [facility] DTL [facility] [address] [place] [address] [facility] [address] [place] [address] * PET CT Skull to Thigh FDG [...] in the anterior pelvis on series 12 has an SUV max of 17.8. A short segment of small bowel in the left side of the abdomen on [id number] image 193 has an SUV max of [...] in the left cervical facet joint on image 50, in the right acromioclavicular joint [...] other observations as detailed in thefindings. Bety Crowell M.D. [facility] PROCEDURES * HIV-1/-2 Ag and Ab Screen, Plasma (05/09/2023 3:57 PM CDT) HIV-1/-2 Ag and Ab Screen, P Negative Negative 05/09/2023 8:50 PM CDT [facility] Comment: Negative result does not rule out HIV infection. If exposure to HIV infection occurred <14 days ago, contact the laboratory to request addition of HIV-1/HIV-2 RNA detection, Plasma (HIP12). Blood (Blood, Venous) 05/09/2023 3:57 PM CDT 05/09/2023 8:12 PM CDT Bety Crowell M.D. LAB ARISTEO ROBIOLOGY - BLOOD ORDERABLES [facility] [address] [place] [address] [facility] [address] [place] [address] * HBs Antigen Scrn, Serum (05/09/2023 3:57 PM CDT) HBs Antigen Scrn, S Negative Negative 05/09/2023 9:24 PM CDT [facility] Blood (Blood, Venous) 05/09/2023 3:57 PM CDT 05/09/2023 8:11 PM CDT Bety Crowell M.D. LAB ARISTEO ROBIOLOGY - BLOOD ORDERABLES Performing Organization Address City/[facility]/ZIP Co de Phone Number [facility] [address] [place] [address] [facility] [address] [place] [address] * HCV Ab w/Reflex to HCV PCR, Serum (05/09/2023 3:57 PM CDT) HCV Ab, S Negative Negative 05/09/2023 9:40 PM CDT [facility] Comment:Rubnri-jt-fjbtsg rat io is <1.00. Blood (Blood, Venous) 05/09/2023 3:57 PM CDT 05/09/2023 8:11 PM CDT Bety Crowell M.D. LAB ARISTEO ROBIOLOGY - BLOOD ORDERABLES [facility] [address] [place] [address] [facility] [address] [place] [address] * HBc Total Ab Scrn, Serum (05/09/2023 3:57 PM CDT) Pathologist [facility] HBc Total Ab Scrn, S Negative Negative 05/09/2023 10:00 PM CDT [facility] Blood (Blood, Venous) 05/09/2023 3:57 PM CDT 05/09/2023 8:11 PM CDT Bety Crowell M.D. LAB ARISTEO ROBIOLOGY - BLOOD ORDERABLES Performing Organization Address City/[facility]/ZIP Co de Phone Number [facility] [address] [place] [address] [facility] [address] [place] [address] * Glucose, Fasting (05/09/2023 3:57 PM CDT) Pathologist [facility] Glucose, P 90 70 - 100 mg/dL 05/09/2023 4:48 PM CDT DTL Last Intake 16 hr 05/09/2023 4:32 PM CDT DT Blood (Blood, Venous) 05/09/2023 3:57 PM CDT 05/09/2023 4:32 PM CDT Bety Crowell M.D. LAB BLO OD NON ADD-ON Performing Organization Address City/[facility]/ZIP Co de Phone Number [facility] [address] [place] [address], [facility] [address] [place] [address] * (ABNORMAL) CBC with Differential, Blood (05/09/2023 3:57 PM CDT) Pathologist [facility] Hemoglobin 9.5(L) 13.2 - 16.6 g/dL 05/09/2023 [...] PM CDT 05/09/2023 4:17 PM CDT Bety Crowell M.D. LAB BLO OD ADD-ON [facility] [address] [place] [address], [place] DTL [facility] [address] [place] [address] [facility] [address] [place] [address] * (ABNORMAL) Ilvl-4-Nzvpreirfjcbm (Beta-2-M) (05/09/2023 3:57 PM CDT) Tcdc-1-Himegjf obulin, S 4.98(H) 1.21 - 2.70 mcg/mL 05/10/2023 8:41 AM CDT [facility] Blood (Blood, Venous) 05/09/2023 3:57 PM CDT 05/10/2023 6:12 AM CDT Bety Crowell M.D. LAB BLO OD ADD-ON Performing Organization Address City/[facility]/ZIP Co de Phone Number [facility] [address] [place] [address] [facility] [address] [place] [address] * 25-Hydroxyvitamin D2 and D3 (05/09/2023 3:57 PM CDT) [facility] 25-Hydroxy D2 <4.0 ng/mL 05/16/2023 8:50 AM CDT [facility] 25-Hydroxy D3 53 ng/mL 05/16/2023 8:50 AM CDT [facility] 25-Hydroxy D Total 53 ng/mL 2022 8:50 AM CDT [facility] Comment: Interpretation: 51-80 ng/mL (increased risk of hypercalciuria) ----REFERENCE VALUE---- 25-HYDROXY D TOTAL (D2+D3) Optimum levels in the healthy population are 20-50, patients with bone disease may benefit from higher levels within this range. ----ADDITIONAL INFORMATION---- This test was developed and its performance characteristics determined by [facility] in a manner consistent with CLIA requirements. This test has not been cleared or approved by the U.S. Food and Drug Administration. Blood (Blood, Venous) 05/09/2023 3:57 PM CDT 05/10/2023 7:05 AM CDT Bety Crowell M.D. LAB BLO OD ADD-ON Performing Organization Address City/[facility]/ZIP Co de Phone Number [facility] [address] [place] [address] [facility] [address] [place] [place] [address] * Uric Acid (05/09/2023 3:56 PM CDT) Uric Acid, S 4.1 3.7 - 8.0 mg/dL 05/09/2023 4:52 PM CDT DTL Blood (Blood, Venous) 05/09/2023 3:56 PM CDT 05/09/2023 4:33 PM CDT Bety Crowell M.D. LAB BLO OD ADD-ON Performing Organization Address City/[facility]/ZIP Co de Phone Number [facility] [address] [place] [address], [facility] [address] [place] [address] * Potassium (05/09/2023 3:56 PM CDT) Potassium, S 4.7 3.6 - 5.2 mmol/L 05/09/2023 4:52 PM CDT DTL Blood (Blood, Venous) 05/09/2023 3:56 PM CDT 05/09/2023 4:33 PM CDT Bety Crowell M.D. LAB BLO OD ADD-ON Performing Organization Address [facility] Co de Phone Number [facility] [address] [place] [address], [facility] [address] [place] [address] * LD (Lactate Dehydrogenase) (05/09/2023 3:56 PM CDT) Lactate Dehydrogenase (LD), S 189 122 - 222 U/L 05/09/2023 4:52 PM CDT DTL Blood (Blood, Venous) 05/09/2023 3:56 PM CDT 05/09/2023 4:33 PM CDT Bety Crowell M.D. LAB BLO OD NON ADD-ON [facility] [address] [place] [address], [facility] [address] [place] [address] * Creatinine with Estimated GFR (05/09/2023 3:56 PM CDT) Creatinine 1.02 0.74 - 1.35 mg/dL 05/09/2023 4:52 PM CDT DT Estimated GFR (eGFR) 77 >=60 mL/min/BSA 05/09/2023 4:52 PM CDT DTL Comment: Estimated GFR calculated using the 2020 CKD_EPI creatinine equation. Blood (Blood, Venous) 05/09/2023 3:56 PM CDT 05/09/2023 4:33 PM CDT Bety Crowell M.D. LAB BLO OD ADD-ON Performing Organization Address City/[facility]/ZIP Co de Phone Number [facility] [address] [place] [address], [facility] [address] [place] [address] * (ABNORMAL) Calcium, Total (05/09/2023 3:56 PM CDT) Pathologist [facility] Calcium, Total, S 8.5(L) 8.8 - 10.2 mg/dL 05/09/2023 4:52 PM CDT DT Blood (Blood, Venous) 05/09/2023 3:56 PM CDT 05/09/2023 4:33 PM CDT Bety Crowell M.D. LAB BLO OD ADD-ON [facility] [address] [place] [address], [facility] [address] [place] [address] * Bilirubin, Total (05/09/2023 3:56 PM CDT) Bilirubin, Total, S 0.3 <=1.2 mg/dL 05/09/2023 4:52 PM CDT DTL Blood (Blood, Venous) 05/09/2023 3:56 PM CDT 05/09/2023 4:33 PM CDT Bety Crowell M.D. LAB BLO OD ADD-ON Performing Organization Address City/[facility]/ZIP Co de Phone Number [facility] [address] [place], [place] [phone] [place] [address] [address] [place] [address] * AST (Aspartate Aminotransferase) (05/09/2023 3:56 PM CDT) Aspartate Aminotransferase (AST), S 23 8 - 48 U/L 05/09/2023 4:52 PM CDT DTL Blood (Blood, Venous) 05/09/2023 3:56 PM CDT 05/09/2023 4:33 PM CDT Bety Crowell M.D. LAB BLO OD ADD-ON Performing Organization Address City/[facility]/ZIP Co de Phone Number [facility] [address] [place] [address], [facility] [address] [place] [address] * Alkaline Phosphatase (05/09/2023 3:56 PM CDT) Alkaline Phosphatase, S 107 40 - 129 U/L 05/09/2023 4:52 PM CDT DTL Blood (Blood, Venous) 05/09/2023 3:56 PM CDT 05/09/2023 4:33 PM CDT Bety Crowell M.D. 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
--- OUTSIDE RECORDS SUMMARY | 2023-10-05 13:05 | XMS_ITS | Encounter Summary ---
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 [address] [place] [address] [facility] Referral ID Status Reason Start Date Expiration Date Visits Re quested Visits Authorized [id number] Closed 05/07/2023 05/06/2024 1 1 Encounter Details Date Type Department Care Team (Latest Contact Info) Description 05/07/2023 Orders Only Division of Gastroenterology in [place], [place] [address] [place] [address] Kalie Brandon M.D. 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 Never 01/10/2023 Do you [...] Answer Date Recorded PHQ-2 Score 0 04/25/2020 [facility] [place] [facility] Occupat ional Health - Occupational Stress [...] (Latest Contact Info) Description 10/06/2023 9:04 AM HUB CUTTER APPRENTICE - 10/06/2023 11:24 AM HUB CUTTER APPRENTICE Surgery [facility] MAIN OR [address] [place] [phone] Cameron Saenz M.D. [address] [place] [phone] ABDOMINAL EXPLORATION, REMOVAL ABTHERA, POSSBLE BOWEL RESECTION, PROCEED INDICATED 10/11/2023 7:00 AM HUB CUTTER APPRENTICE Appointment Department of Laboratory Medicine and Pathology, [facility], in [place], [place] [address] [place] [phone] Arti pEstein M.B.B.S. [address] [place] [phone] 10/11/2023 9:00 AM HUB CUTTER APPRENTICE Office Visit Division of Hematology in [address] [phone] Arti Epstein M.B.B.S. [address] [place] [phone] 10/11/2023 10:00 AM HUB CUTTER APPRENTICE Infusion Department of Oncology in [place], [place] [address] [place] [phone] Bev Gifford APRN, C.N.P., M.S.N. [address] [place] [phone] 11/19/2023 10:00 AM CDT Office Visit Division of Endocrinology in [place], [place] [address] [place] [phone] West Mendoza APRN, C.N.P., M.S. [address] [place] [address] 11/19/2023 2:30 PM CDT Comprehensive Visit Division of Hepatobiliary and Pancreas Surgery in [place], [place] [address] [place] [address] Wesley Hamilton M.D. 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
--- OUTSIDE RECORDS SUMMARY | 2023-10-05 13:05 | XMS_ITS | Encounter Summary ---
Author Name Unknown Organization [facility] Address [address] [place] [address] Care Team Providers Care [employer] Tutor Name Role Phone Elsewhere, Pcp Primary Care Provider Unavailabl e Reason for Visit * Reason Comments Nausea Vomiting Encounter Details Date Type Department Care Team (Latest Contact Info) Description 04/29/2023 4:25 PM CDT - 05/07/2023 7:11 PM CDT Hospital Encounter [facility], [facility], Sixth Floor [address] [place] [phone] Aaliyah Cleaning M.D., M.S. [address] [place] [phone] Omar Gerber M.D. [address] [place] [address] [phone] Umesh Yeh M.D. [address] [place] [phone] Capo Montoya M.D. [address] [place] [phone] Nausea And Vomiting (Primary Dx); Diabetes Mellitus Type 2 (HCC) Discharge Disposition: [...] Answer Date Recorded PHQ-2 Score 0 04/25/2020 [facility] - Occupational [...] Sign Reading Time Taken Comments Blood Pressure 132/63 05/07/2023 6:20 PM CDT Pulse 77 05/07/2023 6:20 PM CDT Temperature 36.6 ??C (97.9 ??F) 05/07/2023 6:20 PM CD T Respiratory Rate 14 05/07/2023 6:20 PM CDT Oxygen Saturation 92% 05/07/2023 6:20 PM CDT Inhaled Oxygen Concentration - - Weight 86.5 kg (190 lb 11.2 oz) 04/30/2023 2:57 PM CDT Height 175.3 cm (5' 9.02) 04/30/2023 1 1:45 AM CDT Body Mass Index 28.15 04/30/2023 11:45 AM CDT documented in this encounter Discharge Summaries * Kenia Bhandari M.D. - 05/07/2023 1:34 PM CDT DISCHARGE SUMMARY BRIEF OVERVIEW Hospital: [facility] Discharge Provider: Capo Montoya M.D. Primary Team: [facility] Gastroenterology B Primary Care Providers: Elsewhere, Pcp (General) No address on file Primary Care Provider Phone Number: None Primary Care Provider Fax Number: None Admission Date: 04/29/2023 Discharge Date: 05/07/23 PRINCIPAL DIAGNOSIS Nausea And Vomiting SECONDARY DIAGNOSES Principal Problem: Nausea And Vomiting Active Problems: Mass Duodenum Resolved Problems: * No resolved hospital problems. * DISCHARGE DISPOSITION Home or Self Care [1] ACTIVE ISSUES REQUIRING FOLLOW UP Dear Mr. Lau You came to the hospital because nausea, vomiting, and abdominal pain. 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 You have follow up with Hematology scheduled on 05/09. You have an a NJ tube placed for nutrition and have had teaching and supplies provided regarding feeding at home. Please see below for details on our recommendations for when you leave the hospital. START taking: Lansoprazole 10 mL in the morning before breakfast Melatonin 5 mL as needed at bedtime for sleep vitamin daily for nutrition Ondansetron (Zofran) 8 mg disintegrating tablet every 8 hours as needed for nausea or vomiting Over the counter Miralax to help with bowel movements STOP taking: Labetalol 150 twice a day Victoza (liraglutide) 2.3 mg under your skin every morning CHANGE how you take: Your medications have been changed to be administered through your NJ tube, just as you were receiving them in the hospital Please change your aspirin dose from 325 mg twice a day to 81 mg daily Please follow-up on the below items: Please follow up with the [facility] Enteral Nutrition Team regarding any questions about tube feeding Please attend your follow up with Hematology on 05/09 regarding duodenal mass, 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 Please follow up with your primary care provider regarding your symptoms and to follow up on labs given your new NJ tube feeds Primary care physician follow-up items: Please follow up need to take any anti-hypertensives included labetalol, lisinopril, or hydrochlorothiazide Please follow up need for liraglutide, metformin, and empagliflozin for diabetes Recommend obtain refeeding labs (K, Mg, Phos) given new NJ tube feeds with prior poor PO intake OUTPATIENT FOLLOW UP Scheduled Appointments 05/09/2023 1:30 PM [facility] Hematology 05/28/2023 10:45 AM RST INTAKE VISIT POD A 01 Admitting/Central Scheduling 05/30/2023 9:00 AM END HEN ILIR SHELL MACHINE OPERATOR [facility] Endocrinology 05/30/2023 10:00 AM YOSSI VILLA DIETITIAN [facility] Nutrition 05/30/2023 1:00 PM END HEN PROVIDER [facility] Endocrinology 07/22/2023 9:00 AM RST INTAKE VISIT POD A 01 Admitting/Central Scheduling 07/23/2023 6:40 AM LAB BLOOD [facility] Laboratory Medicine 07/23/2023 6:50 AM LAB URINE CONTAINER [facility] Laboratory Medicine 07/23/2023 9:00 AM Rosemarie Dutton, RYLEE, C.N.P., M.S. Endocrinology For appointment details refer to your Patient Appointment Guide. TEST RESULTS PENDING AT DISCHARGE Pending Labs None DETAILS OF HOSPITAL STAY REASON FOR ADMISSION Nausea And Vomiting HOSPITAL COURSE HISTORY OF PRESENT ILLNESS Mr. Hola Lau is a 72 y.o. male with medical comorbidities including thyroid cancer s/p resection, postsurgical hypothyroidism, type 2 diabetes, CKD stage 2, gout, psoriasis, hypertension, and hyperlipidemia who presented to the ED on 04/29 for evaluation of abdominal pain, vomiting, and dizziness in the setting of likely malignancy. Prior to admission: The patient reports an approximate 2 to three-week history of feeling unwell. This initially started with decreased appetite and abdominal pain. This then progressed to nausea and vomiting after mostmeals. He was initially still able to eat, but would then experience postprandial nausea and vomiting about 3-4 hours after eating. He also experienced dark stools when his abdominal pain initially began, which progressively lightened to a mucousy diarrhea over the past day. Given his ongoing symptoms, he was initially seen in the [facility] on 04/22 where he was noted to have a thickened gallbladder wall to 0.7 cm on imaging, was febrile to 102?? F,and hypotensive to 90s/50s. He was given vancomycin and Zosyn, initiated on pressors and transferred to the [facility] MICU on 04/23 for further care due to concern for sepsis secondary to presumed cholecystitis. Upon his arrival to [place], he was stable and weaned off pressors. He did have mildly elevated liver tests with a normal bilirubin, alk-phos of 226, ALT of 65, AST of 85. CT of the abdomen and pelvis showed a nonobstructive masslike thickening of the duodenum, predominantly involving the 3rd partof the duodenum with a mildly dilated common bile duct and distended gallbladder, however bedside ultrasound did not show any overt evidence of cholecystitis. During his hospital stay, workup for infection was relatively unremarkable. Hypotension resolved with fluids. He did have 2 more febrile episodes during his admission, so was continued on Zosyn. He was found to have a newly low hemoglobin in the 8- 9 range as well as an ROMEO that improved with fluids. He underwent EGD on 04/24 which showed duodenal necrotizing ulcer. Biopsy was performed, which was read as a necroinflammatory ulcer with duodenal mucosa, acute and chronic inflammation without evidence of active malignancy. However, therewas concern for ongoing malignancy. He was initiated on PPI. Antibiotics were stopped on 04/25 due to no clear source of infection, negative blood cultures, normal white blood cell count, and resolved fevers. He was discharged on 04/27. Since his discharge, the patient reports that he has not been able to eat or drink much of anythingover the past 5 days. He has been able to drink some liquids, but we will still occasionally experience vomiting with this. He is now having clear watery type stools without noticeable melena. He hadan outpatient follow-up appointment this morning at the [facility]. During this appointment,he was found to be hypotensive with a blood pressure of 78/39, and was subsequently recommended to go to the [facility] ED for further workup. [facility] ED: In the ED, the patient was initially hypotensive with a blood pressure 79/56, which then spontaneously corrected to 111/62 about 5 minutes later. He was otherwise hemodynamically stable. Laboratory workup was notable for hemoglobin of 7.9, normal platelets and white blood cell count, INR 1.2. CMP was notable for potassium of 3.2, BUN 21, creatinine 1.6, bilirubin 0.3, ALT 36, AST 32, moderately elevated alk-phos of 188, an albumin of 3.3. Lipase and lactate were normal. TSH was normal at 3.9. Blood cultures were drawn. 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 He was given 2 L ofnormal saline in the emergency department. Given concern for failure to thrive at home, he was admitted to the [facility] GI B service for evaluation and management. GI B Course: On arrival to the floor, the patient was hemodynamically stable and afebrile. Endorse history of poor PO intake due to post-prandial N/V. Went for EGD w/ extended push enteroscopy which identified large circumferential infiltrative and ulcerated mass with no bleeding in the third portion of duodenum. Biopsies were obtained and sent for histopathology review. Endoscopic NJT was placed at that time. The patient was started on enteral nutrition via NJT and tolerated feeds up to 50 mL/hr. His NJ tube then discharged on 05/05 after a sneezing fit and was replaced on 05/06 with a bridal loop. The patient was then restarted on tube feeds and tolerated feeds up to his goal of 65 mL/hr with improved nausea. Home enteral nutrition was consulted and helped to organize home supply of enteral feeding supplies, which have been delivered to the patient's hospital room and home. We monitored for refeeding syndrome, and repleted electrolytes as needed. Nutrition team has been informed about the patient's discharge plans. Pathology for duodenal mass resulted as highly suspicious for a B-cell lymphoma but definite diagnosis not possible due to marked crush artifact and degenerative changes. The patient was updated on these results. The patient has been provided Hematology consultation for further management on 05/09. Patient was discharged home in stable condition on 05/07/23 with plan for enteral nutrition. PCP follow up for further evaluation of his symptoms, tube feeds, and refeeding labs to be arranged. CONSULTS ORDERED DURING THIS ADMISSION IP CONSULT TO DIETITIAN IP CONSULT TO HOME ENTERAL SERVICE IP CONSULT TO DIETITIAN IP CONSULT TO GENERAL SURGERY IP CONSULT TO DIETITIAN IP CONSULT TO DIETITIAN IP CONSULT TO CARE MANAGEMENT CONDITION AT DISCHARGE stable Discharge instructions were provided to the patient and caregiver(s). Total time spent in discharge services today: 75 minutes. documented in this encounter Discharge Instructions * Discharge Instructions* Omar Ellis M.D., M.S. - 04/30/2023 7:01 AM CDT You were discharged from the [facility] Gastroenterology B Service. Please identify this service name if you call with questions after hospitalization. PRIMARY CARE FOLLOW-UP AND UPDATES: ANTI-HYPERTENSIVE: - discontinued labetalol (did not see clear indication for beta-migue, other than use for anti-hypertensive), no need to restart unless indication for beta- migue (consider metoprolol) - held lisinopril/HCTZ on discharge given hypotension/normotensive in hospital with it being held - f/u w/ BP in clinic to determine whether to hold or restart lisinopril/HCTZ; recommend not over-treating HTN while he has less PO intake to avoid hypotensive complications ANTI-HYPERGLYCEMICS: - patient had been holding Victoza (GLP-1) prior to admission and did not receive while inpatient; we removed from mediation list at discharge and instructed patient to follow up w/ PCP to either (1)discontinue or (2) restart at lowest starting dose. - patient has not been taking metformin prior to admission; we did not prescribe on discharge, but instructed patient to follow up w/ PCP about whether or not to restart - we did not give jardiance/sglt2i while in hospital, however we did continue it on medication listand asked patient to confirm that he should continue during PCP follow up CVD SECONDARY PREVENTION: - changed aspirin from 325mg BID to 81mg daily (indicated for secondary prevention of TIA/stroke history) GI/NUTRITION: - NJT placed (w/ tip beyond the partial obstruction in 3rd portion of duodenum/location of duodenalmass); this should stay in place for enteral nutrition until definitive management for partial obstruction (surgical resection versus stenting) - medications temporarily changed to by small bowel (NJ) tube - we have arranged home enteral nutrition and NJT management by [facility] Enteral Nutrition team (they will coordinate w/ patient on supplies, questions about enteral nutrition) ONCOLOGY/SURGERY: - preliminary duodenal mass tissue biopsy - we have arranged Oncology and surgical follow-up for the patient at [facility] * Discharge Instr - Diet* Melissa Chavez RDN, PORSHA - 05/01/2023 7:31 AM CDT NUTRITION Summary provided by: Melissa Chavez RDN, PORSHA Date completed: 05/07/2023 Nutrition Discharge Plan: Patient was assessed as severely malnourished during this hospitalization based upon the ASPEN criteria. Outpatient follow-up recommended by RDN: Patient to follow up with Home Enteral Nutrition. Oral diet: No oral intake. Tube feeds as sole source of nutrition. Feeding tube information: Nasal Jejunal 12 Indian Who placed the tube: [facility] Date of tube placement: May 06, 2023 To maintain enteral access the patient's feeding tube should be replaced at regular intervals. Recommended replacement for nasal feeding tubes is every 4-6 weeks. (Jun 03-Jun 17) Tube feeding program: Formula: Nutren 1.5 Adin ([place]le), Substitute Formula: Osmolite 1.5 ([place]) Feeding method: Continuous pump controlled Feeding schedule/goal: 125 mL/hour x 12 hours overnight (6 cartons) Step 1: 65 mL/hr for 24 hours Step 2: 85 mL/hr for 18 hours Step 3: 105 mL/hr for 15 hours Step 4 (goal): 125 mL/hr for 12 hours *Only advance to the next step if you are tolerating the current step. This is an optional progression which would give you some time off the feeding pump. Water flushes: 120 mL (2 syringes) before and after each feeding plus an additional 120 mL (2 syringes) 4-6 times per day Vitamin/mineral supplementation: Formula at goal volume provides 100% or greater of Recommended Daily Intake for vitamins and minerals. Additional supplementation not needed. This program provides 2250 calories and 102 grams protein per day. Monitor your weight 1-2 time(s) per week. Anthropometrics: Weight: 86.5 kg Height: 175.3 cm BMI (Calculated): 28.1 kg/m?? Estimated Needs: Total Calorie Needs: 4013-9048 calories/day Method to Estimate Energy Needs: kcal/kg (25-30 kcal/kg) Weight Used for Equation Calculations: 87.1 kg Total Protein Needs: 85 - 106 grams/day Method to Estimate Protein Needs (g/kg): 1.2 - 1.5 gm/kg Weight Used to Calculate Protein Needs (Kg): 70.7 kg Your Durable Medical Equipment (DME)/Infusion company for tube feeding supplies is: [place]: ; [employer] Liaison . Please contact this DME with questions about delivery or re-ordering your supplies and formula. Please contact the Home Enteral Nutrition team with questions about the recommended tube feeding program and care of your tube. Saturday - Saturday, 8 a.m. - 4 p.m. * Attachments The following attachments cannot be sent through Care Everywhere. * Aspirin (By mouth) (Bahamian) * Lansoprazole (By mouth) (Bahamian) * Melatonin (By mouth) (Bahamian) * Ondansetron (By mouth, Into the mouth) (Bahamian) documented in this encounter Medications at Time [...] as of this encounter Progress Notes * Capo Montoya M.D. - 05/07/2023 12:46 PM CDT I have personally seen the patient this morning with the entire GI B team. I agree with the findings of Dr. Bhandari as documented in today's progress note. Subjective: He is doing well and tolerating feeding at goal rate following the new tube placement. Objective: Blood pressure 129/60, pulse 75, temperature 36.8 ??C, resp. rate 10, height 175.3 cm, weight 86.5 kg, SpO2 93 %. Body mass index is 28.15 kg/m??. Physical Exam: Alert and in no acute distress Respiratory effort is not labored Abdomen is soft Assessment / Plan: 1. Intestinal mass -probable lymphoma- with partial bowel obstruction 2. Nausea and vomiting 3. Unintentional weight loss 4. Malnutrition severe The nasojejunal feeding tube was dislodged and has been replaced yesterday. There is now a nasal bridle tube keep the tube in place. He is tolerating feeding at goal. He is stable for discharge today. 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 There are some limitations given crush artifact. I think this is sufficient to move forward with hematology consultation in the outpatient setting. We are working on setting this up. Severe Malnutrition The patient meets the ASPEN Criteria of malnutrition based on: Average estimated Intake: Less than or equal to 75% for 1 or more months Weight Loss: >10% in 6 months (17% in 4-5 months) Body Fat: Unable to Assess (patient was unavailable) Muscle Mass: Unable to Assess (patient was unavailable) This is in the context of Chronic Illness. Malnutrition Present Upon Admission: Yes Agree with Registered Dietitian's assessment and treatment plan: Nutrition Interventions Interventions: Enteral nutrition, Provide education to increase nutrition knowledge, Discharge and transfer of nutrition care, Collaboration and referral of nutrition care * Melissa Chavez RDN, LD - 05/07/2023 8:08 AM CDT DESCRIPTION Tube Feeding follow up ASSESSMENT Patient had new NJ tube placed yesterday after previous tube became dislodged from sneezing. Patient advanced to goal rate of 65 mL/hr overnight per flowsheets. Dietary Orders (From admission, onward) Start Ordered 05/02/23 1331 Tube feeding with oral diet -Nutren 1.5 (RTH); Feeding route: Nasojejunal; Feed options: Continuous; Starting rate (ml/hr): 20 mL/hr; Rate advancement (ml/hrs): 10 mL/hr every 12 hours;Continuous goal rate (ml/hr): 65; Daily goal volume (mL): 156... Continuous Question Answer Comment Tube Feeding Formula: Nutren 1.5 (RTH) Feeding route: Nasojejunal Feed options: Continuous Starting rate (ml/hr): 20 mL/hr Rate advancement (ml/hrs): 10 mL/hr every 12 hours Continuous goal rate (ml/hr): 65 Daily goal volume (mL): 1560 05/02/23 1330 04/30/23 1400 Tube feeding free water -120cc (Adult Tube Feeding - Continuous with Oral Diet) 6 times daily Comments: 120cc free water flush by NJT, 6 times daily Question: Free Water: Answer: 120cc 04/30/23 1345 Weight since admission: Height: 175.3 cm Admission Weight: 87.3 kg (04/29/2023) Current Weight: 86.5 kg BMI (Calculated): 28.1 kg/m?? Weight change since admission: -0.8 kg PLAN No changes to tube feeding program, continue tube feeds as currently ordered: Nutren 1.5 with goal rate of 65 mL/hr x 24 hours per day. Water flushes of 120 mL x 6-7 per day. This will provide 2250 calories and 102 grams of protein and meets 100% of the DRIs for vitamins and minerals per day. Dismissal planning: Patient has completed all necessary education for homegoing tube feeds and supplies have been delivered to his room. HEN will contact patient once after dismissal and then will need to see in clinic to establish care if he continues to require tube feeds. For questions about patient's nutritional care please contact pager [phone] on weekdays or [phone] on weekends/holidays. * Melissa Chavez RDN, LD - 05/06/2023 8:43 AM CDT Clinical Nutrition: Care Plan Follow Up Clinical Nutrition continues to follow patient for tube feeding recommendations/management and nutrition education/counseling Nutrition Status: Severe Malnutrition (04/30/2023 11:52 AM) ASSESSMENT Digital Controls Technical Officer visited with patient and friend at bedside today as part of face to face care. Current Nutrition (since admission): NJ tube feeds were started on 04/30 in the setting of prolongedpoor oral intake due to nausea and vomiting. Patient had difficulty tolerating feeds related to hisnausea and has required slow advancement and monitoring for refeeding syndrome. Per chart review, feeds were up to 50 mL/hour on 05/05. Unfortunately, NJ tube was dislodged due to patient sneezing on 05/05 and the tube was removed altogether. Plan to replace NJ tube endoscopically today per provider notes. Dismissal planning: Plan to discharge home with NJ tube feeds once medically ready (pending abilityto tolerate goal rate of tube feeds). HEN has been consulted. DME is [facility]. Homegoing tube feeding education was completed by Maira Singh (dietitian student) on 05/01. Digital Controls Technical Officer confirmed today that supplies have been delivered. Patient and friend did not have any questions regarding homegoing tube feeds today, they feel comfortable with this process. Friend at bedside noted that she found the educational video very helpful. Medications: reviewed; includes daily multivitamin Pertinent Labs: reviewed; potassium, phosphorus and magnesium all within normal limits this morning. Current nutrition orders: Current Diet Tube feeding with oral diet -Nutren 1.5 (RTH); Feeding route: Nasojejunal; Feed options: Continuous; Starting rate (ml/hr): 20 mL/hr; Rate advancement (ml/hrs): 10 mL/hr every 12 hours; Continuous goal rate (ml/hr): 65; Daily goal volume (mL): 156... starting at 05/02 1331 Weight since admission: Height: 175.3 cm Admission Weight: 87.3 kg (04/29/2023) Current Weight: 86.5 kg BMI (Calculated): 28.1 kg/m?? Weight change since admission: -0.8 kg Estimated Needs: Total Calorie Needs: 4152-1622 calories/day Method to Estimate Energy Needs: kcal/kg (25-30 kcal/kg) Weight Used for Equation Calculations: 87.1 kg Total Protein Needs: 85 - 106 grams/day Method to Estimate Protein Needs (g/kg): 1.2 - 1.5 gm/kg Weight Used to Calculate Protein Needs (Kg): 70.7 kg Nutrition Diagnosis: Inadequate oral intake related to current illness as evidenced by need for enteral nutrition through NJ tube PLAN Nutrition Intervention: Enteral nutrition, Provide education to increase nutrition knowledge, Discharge and transfer of nutrition care, Collaboration and referral of nutrition care Nutrition parameter to monitor: Weight Status, Pertinent Labs, Enteral, Nausea/Vomiting/Diarrhea Recommendations: Once NJ tube is replaced and confirmed in appropriate position, may restart tube feeds of Nutren 1.5 at last tolerated rate (50 mL/hour). Advance by 10 mL Q12H to goal rate of 65 mL/hour. Water flushes: 120 mL flushes 6-7 times per day Enteral nutrition as recommended will provide 2250 total calories and 102 grams of protein and meets 100% of the Reference Daily Intake of vitamins and minerals per day. Home-going regimen titration to night time feeds (patient may do this after discharge if he would prefer night time feeds): 6 cartons of Nutren 1.5 Step 1: 65 mL/hr for 24 hours Step 2: 85 mL/hr for 18 hours Step 3: 105 mL/hr for 15 hours Step 4: 125 mL/hr for 12 hours Dismissal planning: Patient has completed all necessary education for homegoing tube feeds and supplies have been delivered to his room. Once goal rate is achieved, patient will be ready to dischargefrom a nutrition perspective. HEN will contact patient once after dismissal and then will need to see in clinic to establish care if he continues to require tube feeds. Clinical Nutrition will continue to follow. For questions about patient's nutritional care please contact pager [phone] on weekdays 07:30-16:00 or [phone] on weekends/holidays. * Kenia Bhandari M.D. - 05/06/2023 5:54 AM CDT [facility] Gastroenterology B PROGRESS NOTE SUBJECTIVE Mr. Lau is a 72 year old male admitted for abdominal pain, nausea, and vomiting in the setting of a duodenal mass concerning for malignancy. Interval Events: -After the patient had his NJ fall out, he received a bolus of 2L of fluids over 8 hours. This has been reordered in the AM while the patient waits to get his NJ replaced -his meds are being held in the setting of his NJ falling out -the patient is still slightly nauseous but it is tolerable and there are no other acute events overnight I have reviewed the current medication list. OBJECTIVE VITAL SIGNS Temperature: [36.8 ??C-37 ??C] 36.8 ??C Heart Rate: [76-84] 78 Resp Rate: [16-21] 16 SpO2: [97 %-99 %] 99 % Pulse Rate: [77-84] 80 I/O 05/04 0000 05/04 Enteric (NG/OG) Tube 540 120 Feedings 490 Total Intake(mL/kg) 1030 (11.9) 120 (1.4) Urine (mL/kg/hr) 375 (0.2) 150 (0.1) Stool 0 Total Output 375 150 Net +655 -30 Unmeasured Urine Occurrence 1 x Unmeasured Stool Occurrence 0 x 4 x PHYSICAL EXAM General: AOx3, resting comfortably in bed Skin: warm and dry, slightly pale, no rashes noted on exam Eyes: Pupils equal and round. Sclera anicteric. ENT: Hearing grossly intact. Dentition intact. No oral or pharyngeal erythema or lesions noted. Lungs: Clear to auscultation. No wheezes or crackles. Heart: Regular rate and rhythm. No murmurs appreciated. No lower extremity edema. Abdomen: soft, nondistended, reducible ventral hernia, no tenderness to palpation Neuro: chronic right foot drop present, no gross neurologic focal deficits, spontaneously able to move all extremities Mental: Mood and affect congruent. Alert and oriented. Attention intact. No evidence of disorganized thinking. 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 ASSESSMENT / PLAN Mr. Lau is hospitalized on [facility] for evaluation and management of Nausea And Vomiting, abdominal pain, and inability to tolerate PO diet in the setting of a duodenal mass/wall thickening with concern for malignancy. His known medical comorbidities include thyroid cancer on monoclonal antibodies, postsurgical hypothyroidism, type 2 diabetes, CKD stage 2, gout, hypertension, and hyperlipidemia. The patient's nausea and vomiting is most notably post-prandial with CT imaging showing duodenum wall thickening/mass with concern for malignancy. He had a recent hospitalization at [facility] [place] with an EGD and biopsy of mass with outside pathology not confirming malignancy. He was undergone upper GI push enteroscopy with visualization of 5 cm of circumferential, infiltrating mass with partial obstruction of duodenal lumen at the 3rd portion of the duodenum. Endoscopic images were concerning for malignancy. Biopsies obtained with pathology read pending at this time. At that time, an NJ tube was placed and enteral nutrition was started. He has had some difficulty tolerating enteral feeds due to nausea, but has some improvement with PRN Zofran and Compazine. His NJ tube fell out due to a bout of sneezing on 05/06 with the NJ to be replaced on 05/06 with a bridal loop. Given the patient's malnutrition, weight loss, and lack of PO intake prior to admission, we are monitoring for refeeding syndrome after starting enteral nutrition. His K, Mg, and Phos are being monitored and repleted as needed. General Surgery was consulted to evaluate the patient given his findings and they recommend coordinated outpatient management, likely with Oncology. Today's Plan: - hydration with LR today while awaiting NJ tube replacement - New NJ tube replacement today with bridal loop to prevent it falling out -restart tube feeds once NJ tube replaced -medications being held in the setting of NJ tube falling out, will be restarted once replaced - continue following up on the final pathology report # Nausea And Vomiting # Unintentional weight loss # Duodenal mass/wall thickening, concern for malignancy # Abdominal lymphadenopathy # Indeterminate splenic lesion # Normocytic anemia, iron deficiency s/p push enteroscopy on 04/30 with visualized 5 cm circumferential infiltrative mass in the 3rd portion of the duodenum, concerning for malignancy -will follow up pathology read -NJ tube replacement with bridal loop today. Will restart tube feeds after replacement, the patientpreviously tolerated 50 mL/hr -pain control with Tylenol 500 mg every 6 hours as needed, will restart after NJ tube replaced -lansoprazole suspension 30 mg daily before breakfast, will restart after NJ tube replaced -multivitamin daily, will restart after NJ tube replaced -PRN Zofran and Compazine for nausea -will coordinate outpatient oncology and surgical follow up after patient has reached goal feeding rate # Hypokalemia - resolved # Hypophosphatemia - improving # Hypomagnesemia # Monitoring for refeeding syndrome -monitor and replete electrolytes (K, Mg, Phos) # Thyroid cancer s/p thyroidectomy # Postsurgical hypothyroidism Patient receives Taltz once monthly. -continue home levothyroxine to 224 mcg on Mondays, Wednesdays, Fridays, and Saturdays and 112 mcg on Sundays, Tuesdays, , will restart after NJ tube replaced # T2DM Patient on Jardiance, Victoza, and metformin at home. Says he stopped taking Victoza recently givennausea/vomiting -hold home antihyperglycemics -continue moderate sliding scale insulin # HTN # HLD # Prior CVA 2002 -Patient had labetalol 150 mg b.i.d., lisinopril-hydrochlorothiazide 20-25 mg daily, 325 b.i.d. aspirin on [facility] med list. - he has indication for aspirin 81mg (for secondary CVD prevention, given TIA/stroke history) - he does not have clear indication for beta-migue therapy (has been on labetalol presumably for anti-hypertensive); he has been off beta-blockers for >1 week now and has not had any rebound tachycardia or other concerning irregular or rapid dysrhythmia; therefore, we will discontinue labetalol and no need to replace with other beta-blocking medications at this time - otherwise, he has been hypotensive/normotensive off of lisinopril/HCTZ and we favor not aggressively treating BP, w/ consideration of restarting in outpatient setting w/ PCP -hold to hold home antihypertensives given softer blood pressures, can slowly reinitiate as able -continue aspirin 81mg, will restart after NJ tube replaced -continue atorvastatin 20 mg daily, will restart after NJ tube replaced # CONNIE on CPAP -patient brought home [employer] -RT evaluation for best-fitting mask for patient while he has NJT (versus not using CPAP temporarily) -melatonin daily for sleep, will restart after NJ tube replaced # Gout Patient on allopurinol 300 mg daily and as-needed probenecid-colchicine for flares. -allopurinol 300 mg daily, will restart after NJ tube replaced # Psoriasis On monthly Taltz, received his last injection on 04/24 Current Activity/Mobility: BMAT Level 4 (Able to stand and walk; needs staff assist if fall risk factors identified) Diet: continuous enteral diet Bowel regimen: Miralax, Senna Tubes/lines: PIV, NJ VTE prophylaxis: enoxaparin Code status: Full Code Disposition: Home with expected discharge date uncertain Stable to discharge criteria (not met): Nutrition/hydration Severe Malnutrition The patient meets the ASPEN Criteria of malnutrition based on: Average estimated Intake: Less than or equal to 75% for 1 or more months Weight Loss: >10% in 6 months (17% in 4-5 months) Body Fat: Unable to Assess (patient was unavailable) Muscle Mass: Unable to Assess (patient was unavailable) This is in the context of Chronic Illness. Malnutrition Present Upon Admission: Yes Agree with Registered Dietitian's assessment and treatment plan: Nutrition Interventions Interventions: Enteral nutrition, Provide education to increase nutrition knowledge, Discharge and transfer of nutrition care, Collaboration and referral of nutrition care Plan discussed with [facility] Atm Manager,Capo Montoya M.D., who was present during the duncan portions of the evaluation today. Please page the [facility] service pager at [phone] with any questions. Kenia Bhandari M.D. PGY-1 Internal Medicine 05/06/23 Associated attestation - Capo Montoya M.D. - 05/06/2023 1:05 PM CDT I have personally seen the patient this morning with the entire GI B team. I agree with the findings of Dr. Bhandari as documented in today's progress note. Subjective: He is doing though he has had some mild ongoing nausea even in the absence of feeding. Objective: Blood pressure 128/65, pulse 71, temperature 36.4 ??C, temperature source Axillary, resp. rate 14, height 175.3 cm, weight 86.5 kg, SpO2 99 %. Body mass index is 28.15 kg/m??. Physical Exam: Alert and in no acute distress Respiratory effort is not labored Abdomen is soft Assessment / Plan: 1. Intestinal mass with partial bowel obstruction 2. Nausea and vomiting 3. Unintentional weight loss 4. Malnutrition severe The nasojejunal feeding tube was dislodged unfortunately after a sneezing episode. We will need to have the tube replaced today and we will plan for a nasal bridle since this may be in for a bit of time depending on the pathology and treatment steps/response. He was tolerating the enteral nutritionwell. We will continue to replace IV fluids up until the repeat endoscopy and tube placement. We will replete electrolytes as needed. Pathology from duodenal sampling is still pending at this time. Severe Malnutrition The patient meets the ASPEN Criteria of malnutrition based on: Average estimated Intake: Less than or equal to 75% for 1 or more months Weight Loss: >10% in 6 months (17% in 4-5 months) Body Fat: Unable to Assess (patient was unavailable) Muscle Mass: Unable to Assess (patient was unavailable) This is in the context of Chronic Illness. Malnutrition Present Upon Admission: Yes Agree with Registered Dietitian's assessment and treatment plan: Nutrition Interventions Interventions: Enteral nutrition, Provide education to increase nutrition knowledge, Discharge and transfer of nutrition care, Collaboration and referral of nutrition care * Capo Montoya M.D. - 05/05/2023 10:56 AM CDT Inpatient Progress Note 05/05/2023 I have personally seen the patient this morning with the entire GI B team. I agree with the findings of Dr. Santos as documents today's progress note. Subjective: He is doing well but had a series of sneezes that dislodged his tube in the past 24 hours. He was up to 50 mL per mL/hr and was tolerating this well. He continues to have loose stools. Objective: Temperature: [36.6 ??C-37.7 ??C] 37 ??C Heart Rate: [68-84] 76 Resp Rate: [12-30] 21 Blood Pressure: (131)/(76) 131/76 SpO2: [92 %-99 %] 99 % Pulse Rate: [68-87] 77 Physical Exam: Alert and in no acute distress Respiratory effort is not labored Abdomen is soft Assessment / Plan: 1. Intestinal mass with partial bowel obstruction 2. Nausea and vomiting 3. Unintentional weight loss 4. Malnutrition severe The nasojejunal feeding tube was dislodged unfortunately after a sneezing episode. We will need to have the tube replaced and this will require endoscopy since it is completely out. We will ask aboutusing a bridle since this may be in for a bit of time depending on the pathology and treatment steps/response. He was tolerating the enteral nutrition well. We will simply replace IV fluids up until the repeat endoscopy in tube placement. We will replete electrolytes as needed. Severe Malnutrition The patient meets the ASPEN Criteria of malnutrition based on: Average estimated Intake: Less than or equal to 75% for 1 or more months Weight Loss: >10% in 6 months (17% in 4-5 months) Body Fat: Unable to Assess (patient was unavailable) Muscle Mass: Unable to Assess (patient was unavailable) This is in the context of Chronic Illness. Malnutrition Present Upon Admission: Yes Agree with Registered Dietitian's assessment and treatment plan: Nutrition Interventions Interventions: Enteral nutrition, Provide education to increase nutrition knowledge, Discharge and transfer of nutrition care, Collaboration and referral of nutrition care * Emmett Santos M.D. - 05/05/2023 10:45 AM CDT [facility] PROGRESS NOTE SUBJECTIVE Mr. Lau is a 72 year old male admitted for abdominal pain, nausea, and vomiting in the setting of a duodenal mass concerning for malignancy. Interval Events: - tube feeds are tolerated with administration of antiemetics. Patient was up to rate of 50 mL/hourovernight No acute events overnight. Patient was seen lying down comfortably this morning. However, there was feed material coming out of his nose. Upon review with nursing, it was confirmed that his NJ tube was almost out. Patient attributes this to episodes of sneezing. He had some sudden onset loose stools, leading to incontinence. I have reviewed the current medication list. OBJECTIVE VITAL SIGNS Temperature: [36.6 ??C-37.7 ??C] 37 ??C Heart Rate: [68-84] 76 Resp Rate: [12-30] 21 Blood Pressure: (131)/(76) 131/76 SpO2: [92 %-99 %] 99 % Pulse Rate: [68-87] 77 I/O 05/03 Enteric (NG/OG) Tube 480 540 120 Feedings 490 Total Intake(mL/kg) 480 (5.5) 1030 (11.9) 120 (1.4) Urine (mL/kg/hr) 800 (0.4) 375 (0.2) 150 (0.2) Stool 0 Total Output 800 375 150 Net -320 +655 -30 Unmeasured Stool Occurrence 0 x PHYSICAL EXAM General: AOx3, resting comfortably in bed Skin: warm and dry, slightly pale, no rashes noted on exam Eyes: Pupils equal and round. Sclera anicteric. ENT: Hearing grossly intact. Dentition intact. No oral or pharyngeal erythema or lesions noted. Lungs: Clear to auscultation. No wheezes or crackles. Heart: Regular rate and rhythm. No murmurs appreciated. No lower extremity edema. Abdomen: soft, nondistended, reducible ventral hernia, no tenderness to palpation Neuro: chronic right foot drop present, no gross neurologic focal deficits, spontaneously able to move all extremities Mental: Mood and affect congruent. Alert and oriented. Attention intact. No evidence of disorganized thinking. 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 ASSESSMENT / PLAN Mr. Lau is hospitalized on [facility] for evaluation and management of Nausea And Vomiting, abdominal pain, and inability to tolerate PO diet in the setting of a duodenal mass/wall thickening with concern for malignancy. His known medical comorbidities include thyroid cancer on monoclonal antibodies, postsurgical hypothyroidism, type 2 diabetes, CKD stage 2, gout, hypertension, and hyperlipidemia. The patient's nausea and vomiting is most notably post-prandial with CT imaging showing duodenum wall thickening/mass with concern for malignancy. He had a recent hospitalization at [facility] [place] with an EGD and biopsy of mass with outside pathology not confirming malignancy. He was undergone upper GI push enteroscopy with visualization of 5 cm of circumferential, infiltrating mass with partial obstruction of duodenal lumen at the 3rd portion of the duodenum. Endoscopic images were concerning for malignancy. Biopsies obtained with pathology read pending at this time. At that time, an NJ tube was placed and enteral nutrition was started. He has had some difficulty tolerating enteral feeds due to nausea, but has some improvement with PRN Zofran and Compazine. Given the patient's malnutrition, weight loss, and lack of PO intake prior to admission, we are monitoring for refeeding syndrome after starting enteral nutrition. His K, Mg, and Phos are being monitored and repleted as needed. General Surgery was consulted to evaluate the patient given his findings and they recommend coordinated outpatient management, likely with Oncology. Unfortunately, patient has NJ tube came out this morning after episodes of sneezing. We have removed the NJ-tube entirely. Patient will need a new NJ-tube placed endoscopically tomorrow. Today's Plan: - hydration with LR today while awaiting NJ tube replacement - New NJ tube placement endoscopically likely tomorrow - continue following up on the final pathology report # Nausea And Vomiting # Unintentional weight loss # Duodenal mass/wall thickening, concern for malignancy # Abdominal lymphadenopathy # Indeterminate splenic lesion # Normocytic anemia, iron deficiency s/p push enteroscopy on 04/30 with visualized 5 cm circumferential infiltrative mass in the 3rd portion of the duodenum, concerning for malignancy -will follow up pathology read -NJ tube placement likely tmrw -pain control with Tylenol 500 mg every 6 hours as needed -lansoprazole suspension 30 mg daily before breakfast -multivitamin daily -PRN Zofran and Compazine for nausea -will coordinate outpatient oncology and surgical follow up after patient has reached goal feeding rate # Hypokalemia - resolved # Hypophosphatemia - improving # Hypomagnesemia # Monitoring for refeeding syndrome -monitor and replete electrolytes (K, Mg, Phos) # Thyroid cancer s/p thyroidectomy # Postsurgical hypothyroidism Patient receives Taltz once monthly. -continue home levothyroxine to 224 mcg on Mondays, Wednesdays, Fridays, and Saturdays and 112 mcg on Sundays, Tuesdays, # T2DM Patient on Jardiance, Victoza, and metformin at home. Says he stopped taking Victoza recently givennausea/vomiting -hold home antihyperglycemics -continue moderate sliding scale insulin # HTN # HLD # Prior CVA 2002 -Patient had labetalol 150 mg b.i.d., lisinopril-hydrochlorothiazide 20-25 mg daily, 325 b.i.d. aspirin on [facility] med list. - he has indication for aspirin 81mg (for secondary CVD prevention, given TIA/stroke history) - he does not have clear indication for beta-migue therapy (has been on labetalol presumably for anti-hypertensive); he has been off beta-blockers for >1 week now and has not had any rebound tachycardia or other concerning irregular or rapid dysrhythmia; therefore, we will discontinue labetalol and no need to replace with other beta-blocking medications at this time - otherwise, he has been hypotensive/normotensive off of lisinopril/HCTZ and we favor not aggressively treating BP, w/ consideration of restarting in outpatient setting w/ PCP -hold to hold home antihypertensives given softer blood pressures, can slowly reinitiate as able -continue aspirin 81mg -switch home simvastatin to atorvastatin 20 mg daily # CONNIE on CPAP -patient brought home [employer] -RT evaluation for best-fitting mask for patient while he has NJT (versus not using CPAP temporarily) -melatonin daily for sleep # Gout Patient on allopurinol 300 mg daily and as-needed probenecid-colchicine for flares. -allopurinol 300 mg daily # Psoriasis On monthly Taltz, received his last injection on 04/24 Current Activity/Mobility: BMAT Level 4 (Able to stand and walk; needs staff assist if fall risk factors identified) Diet: continuous enteral diet Bowel regimen: Miralax, Senna Tubes/lines: PIV, NJ VTE prophylaxis: enoxaparin Code status: Full Code Disposition: Home with expected discharge date uncertain Stable to discharge criteria (not met): Nutrition/hydration Severe Malnutrition The patient meets the ASPEN Criteria of malnutrition based on: Average estimated Intake: Less than or equal to 75% for 1 or more months Weight Loss: >10% in 6 months (17% in 4-5 months) Body Fat: Unable to Assess (patient was unavailable) Muscle Mass: Unable to Assess (patient was unavailable) This is in the context of Chronic Illness. Malnutrition Present Upon Admission: Yes Agree with Registered Dietitian's assessment and treatment plan: Nutrition Interventions Interventions: Enteral nutrition, Provide education to increase nutrition knowledge, Discharge and transfer of nutrition care, Collaboration and referral of nutrition care Plan discussed with [facility] G[facility] B Atm Manager, Dr. Montoya who was present during the keyportions of the evaluation today. Please page the [facility] service pager at [phone] any questions. Jimmy Santos M.D. PGY-1 Internal Medicine 05/05/23 * Kenia Bhandari M.D. - 05/04/2023 6:36 AM CDT [facility] B PROGRESS NOTE SUBJECTIVE Mr. Lau is a 72 year old male admitted for abdominal pain, nausea, and vomiting in the setting of a duodenal mass concerning for malignancy. Interval Events: -overnight, the patient received an enema and had a bowel movement -he was nauseous and received Zofran with good effect -tube feeds were restarted at approximately 9 PM at 30 mL/hr, patient is tolerating with some nausea so he received PRN compazine. He is okay with increasing tube feeds to goal 65 mL/hr as tolerated -refeeding labs: magnesium low at 1.5 and repleted, phosphorus 2.6, potassium 4.0) -pathology results pending I have reviewed the current medication list. OBJECTIVE VITAL SIGNS Temperature: [36.5 ??C-37 ??C] 36.8 ??C Heart Rate: [64-87] 74 Resp Rate: [14-24] 17 Blood Pressure: (119)/(56) 119/56 SpO2: [85 %-98 %] 96 % Pulse Rate: [63-84] 74 I/O 05/02 0000 05/02 2359 05/03 0000 05/039 05/04 0000 05/04 2359 Enteric (NG/OG) Tube 240 480 Crystalloid Bolus 10 Total Intake(mL/kg) 250 (2.9) 480 (5.5) Urine (mL/kg/hr) 200 (0.1) 800 (0.4) 100 (0.1) Total Output 200 800 100 Net +50 -320 -100 PHYSICAL EXAM General: AOx3, resting comfortably in bed Skin: warm and dry, slightly pale, no rashes noted on exam Eyes: Pupils equal and round. Sclera anicteric. ENT: Hearing grossly intact. Dentition intact. No oral or pharyngeal erythema or lesions noted. Lungs: Clear to auscultation. No wheezes or crackles. Heart: Regular rate and rhythm. No murmurs appreciated. No lower extremity edema. Abdomen: soft, nondistended, reducible ventral hernia, no tenderness to palpation Neuro: chronic right foot drop present, no gross neurologic focal deficits, spontaneously able to move all extremities Mental: Mood and affect congruent. Alert and oriented. Attention intact. No evidence of disorganized thinking. 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 ASSESSMENT / PLAN Mr. Lau is hospitalized on [facility] for evaluation and management of Nausea And Vomiting, abdominal pain, and inability to tolerate PO diet in the setting of a duodenal mass/wall thickening with concern for malignancy. His known medical comorbidities include thyroid cancer on monoclonal antibodies, postsurgical hypothyroidism, type 2 diabetes, CKD stage 2, gout, hypertension, and hyperlipidemia. The patient's nausea and vomiting is most notably post-prandial with CT imaging showing duodenum wall thickening/mass with concern for malignancy. He had a recent hospitalization at [facility] [place] with an EGD and biopsy of mass with outside pathology not confirming malignancy. He was undergone upper GI push enteroscopy with visualization of 5 cm of circumferential, infiltrating mass with partial obstruction of duodenal lumen at the 3rd portion of the duodenum. Endoscopic images were concerning for malignancy. Biopsies obtained with pathology read pending at this time. At that time, an NJ tube was placed and enteral nutrition was started. He has had some difficulty tolerating enteral feeds due to nausea, but has some improvement with PRN Zofran and Compazine. Given the patient's malnutrition, weight loss, and lack of PO intake prior to admission, we are monitoring for refeeding syndrome after starting enteral nutrition. His K, Mg, and Phos are being monitored and repleted as needed. General Surgery was consulted to evaluate the patient given his findings and they recommend coordinated outpatient management, likely with Oncology. Today's Plan: -continue tube feed uptitration as tolerated -follow up pathology read -monitor for refeeding syndrome # Nausea And Vomiting # Unintentional weight loss # Duodenal mass/wall thickening, concern for malignancy # Abdominal lymphadenopathy # Indeterminate splenic lesion # Normocytic anemia, iron deficiency s/p push enteroscopy on 04/30 with visualized 5 cm circumferential infiltrative mass in the 3rd portion of the duodenum, concerning for malignancy -will follow up pathology read -continue NJ tube with continuous enteral feeds -on Nutren 1.5, advancing 10 mL/hr every 12 hours with goal 65 mL/hr -currently 30 mL/hr -patient has received some nutrition supplies, follow up with home enteral nutrition on education -pain control with Tylenol 500 mg every 6 hours as needed -lansoprazole suspension 30 mg daily before breakfast -multivitamin daily -PRN Zofran and Compazine for nausea -will coordinate outpatient oncology and surgical follow up after patient has reached goal feeding rate # Hypokalemia # Hypophosphatemia # Hypomagnesemia # Monitoring for refeeding syndrome -monitor and replete electrolytes (K, Mg, Phos) # Thyroid cancer s/p thyroidectomy # Postsurgical hypothyroidism Patient receives Taltz once monthly. -continue home levothyroxine to 224 mcg on Mondays, Wednesdays, Fridays, and Saturdays and 112 mcg on Sundays, Tuesdays, # T2DM Patient on Jardiance, Victoza, and metformin at home. Says he stopped taking Victoza recently givennausea/vomiting -hold home antihyperglycemics -continue moderate sliding scale insulin # HTN # HLD # Prior CVA 2002 -Patient had labetalol 150 mg b.i.d., lisinopril-hydrochlorothiazide 20-25 mg daily, 325 b.i.d. aspirin on [facility] med list. - he has indication for aspirin 81mg (for secondary CVD prevention, given TIA/stroke history) - he does not have clear indication for beta-migue therapy (has been on labetalol presumably for anti-hypertensive); he has been off beta-blockers for >1 week now and has not had any rebound tachycardia or other concerning irregular or rapid dysrhythmia; therefore, we will discontinue labetalol and no need to replace with other beta-blocking medications at this time - otherwise, he has been hypotensive/normotensive off of lisinopril/HCTZ and we favor not aggressively treating BP, w/ consideration of restarting in outpatient setting w/ PCP -hold to hold home antihypertensives given softer blood pressures, can slowly reinitiate as able -continue aspirin 81mg -switch home simvastatin to atorvastatin 20 mg daily # CONNIE on CPAP -patient brought home [employer] -RT evaluation for best-fitting mask for patient while he has NJT (versus not using CPAP temporarily) -melatonin daily for sleep # Gout Patient on allopurinol 300 mg daily and as-needed probenecid-colchicine for flares. -allopurinol 300 mg daily # Psoriasis On monthly Taltz, received his last injection on 04/24 Current Activity/Mobility: BMAT Level 4 (Able to stand and walk; needs staff assist if fall risk factors identified) Diet: continuous enteral diet Bowel regimen: Miralax, Senna Tubes/lines: PIV, NJ VTE prophylaxis: enoxaparin Code status: Full Code Disposition: Home with expected discharge date uncertain Stable to discharge criteria (not met): Nutrition/hydration Severe Malnutrition The patient meets the ASPEN Criteria of malnutrition based on: Average estimated Intake: Less than or equal to 75% for 1 or more months Weight Loss: >10% in 6 months (17% in 4-5 months) Body Fat: Unable to Assess (patient was unavailable) Muscle Mass: Unable to Assess (patient was unavailable) This is in the context of Chronic Illness. Malnutrition Present Upon Admission: Yes Agree with Registered Dietitian's assessment and treatment plan: Nutrition Interventions Interventions: Enteral nutrition, Provide education to increase nutrition knowledge, Discharge and transfer of nutrition care, Collaboration and referral of nutrition care Plan discussed with [facility] Gastroenterology B Atm Manager, Dr. Montoya who was present during the keyportions of the evaluation today. Please page the [facility] Gastroenterology B service pager at [phone] any questions. Kenia Bhandari M.D. PGY-1 Internal Medicine 05/04/23 Associated attestation - Capo Montoya M.D. - 05/04/2023 12:02 PM CDT I saw and evaluated the patient, participating in the duncan portions of the service. I reviewed Dr. Bhandari s note. I agree with her findings and plan. Mr. Lau is having some nausea and mild abdominal discomfort. He is on the tube feeding at a rate of 30 mL/hr with a goal of 65 mL/hr. He is lying in bed no acute distress. Respiratory effort is not labored. The abdomen is nondistended. Assessment/plan 1. Intestinal mass with partial bowel obstruction 2. Nausea and vomiting 3. Unintentional weight loss 4. Malnutrition moderate There is a nasojejunal feeding tube in place and we are slowly advancing the feeding up to goal rate. He is we will be getting full nutrition via the tube. We will await the final pathology results before moving forward with therapy. We are monitoring for refeeding syndrome. We will replete electrolytes as needed. * Umesh Yeh M.D. - 05/03/2023 11:10 AM CDT Inpatient Progress Note 05/03/2023 I have interviewed and examined the patient. I have discussed current findings and management plan with the patient and team. Subjective: Clinically stable overnight. Tolerating nasojejunal feeding Currently at 30 cc/hour. Objective: Temperature: [36.5 ??C-36.7 ??C] 36.5 ??C Heart Rate: [70-104] 83 Resp Rate: [13-23] 23 Blood Pressure: (139)/(73) 139/73 SpO2: [91 %-97 %] 97 % Pulse Rate: [70-108] 79 Physical Exam: Sitting comfortably in bed. Assessment / Plan: #1 Duodenal mass with obstruction #2 Inability to eat, secondary to 1. #3 Nasojejunal feeding #4 High-risk for refeeding syndrome The feeding tube is in the correct position, with tip distal to the obstruction, the patient is currently tolerating feeding at 30 cc/hour. Will continue to advance as tolerated. His goal is 65 cc/hour. We would some communication with colleagues in pathology yesterday, who indicated that the final read was unavailable as additional staining was being performed for lymphoma. We do not know the finaldiagnosis at this time, and likely this will not be available until middle of next week. Plan at this time is to advance the feeding as tolerated, to his goal of 65 cc hourly, monitoring for refeeding common when he reaches that goal, he can discharge home. All supplies are ready for himto go home, if this is over the weekend, and we will be calling him with the pathology results oncethis is finalized, early to mid next week. Plan as follows: Monitor for refeeding syndrome Nasojejunal feeding per protocol Pathology awaited Mobilize frequently as tolerated All discussed in detail, questions answered, understanding expressed. * Melissa Chavez, LAURA, LD - 05/03/2023 9:51 AM CDT Clinical Nutrition: Care Plan Follow Up Clinical Nutrition continues to follow patient for tube feeding recommendations/management and homegoing tube feed education/coordination Nutrition Status: Severe Malnutrition (04/30/2023 11:52 AM) ASSESSMENT Completed visit with patient today as part of face to face care. Current Nutrition (since admission): NJ tube feeds were started on 04/30. Patient has had difficultytolerating this due to nausea. His goal rate is 65 mL/hr x 24 hours per day. During my visit this morning, feeds were running at 30 mL/hr and patient reported he was tolerating this okay but still experiencing nausea. My colleague completed education with patient and his friend, Rhona, yesterday. Ash kumar denied having any questions related to homegoing tube feeds at my visit this morning. Patient reported that Alee (outside dealer sales representative from [employer]) stopped by yesterday and plans to deliver his tube feeding supplies today. Enteral access: 12 Fr NJ tube placed 04/30/23 Scheduled Meds: allopurinoL, 300 mg, small bowel tube, Daily aspirin, 81 mg, small bowel tube, Daily atorvastatin, 20 mg, small bowel tube, Daily at bedtime enoxaparin, 40 mg, subcutaneous, Daily insulin aspart, 0-13 Units, subcutaneous, TID lansoprazole, 30 mg, small bowel tube, Daily before breakfast levothyroxine, 112 mcg, small bowel tube, Once per day on Satu levothyroxine, 224 mcg, small bowel tube, Once per day on Sat melatonin, 5 mg, small bowel tube, Daily at bedtime multivitamin/mineral-, 1 tablet, small bowel tube, Daily polyethylene glycol, 17 g, small bowel tube, Daily sennosides-docusate sodium, 1 tablet, small bowel tube, BID PRN Meds: acetaminophen dextrose 40 % dextrose glucagon glucose ipratropium ondansetron traZODone Pertinent Labs: reviewed, low phosphorus today, potassium and magnesium within normal range. Latest Reference Range & Units 05/03/23 04:41 Phosphorus (Inorganic), S 2.5 - 4.5 mg/dL 2.3 (L) (L): Data is abnormally low Current nutrition orders: Current Diet Tube feeding with oral diet -Nutren 1.5 (RTH); Feeding route: Nasojejunal; Feed options: Continuous; Starting rate (ml/hr): 20 mL/hr; Rate advancement (ml/hrs): 10 mL/hr every 12 hours; Continuous goal rate (ml/hr): 65; Daily goal volume (mL): 156... starting at 05/02 1331 Weight since admission: Height: 175.3 cm Admission Weight: 87.3 kg (04/29/2023) Current Weight: 86.5 kg BMI (Calculated): 28.1 kg/m?? Weight change since admission: -0.8 kg Estimated Needs: Total Calorie Needs: 3331-3455 calories/day Method to Estimate Energy Needs: kcal/kg (25-30 kcal/kg) Weight Used for Equation Calculations: 87.1 kg Total Protein Needs: 85 - 106 grams/day Method to Estimate Protein Needs (g/kg): 1.2 - 1.5 gm/kg Weight Used to Calculate Protein Needs (Kg): 70.7 kg Nutrition Diagnosis: Inadequate oral intake related to current illness as evidenced by need for enteral nutrition through NJ tube PLAN Nutrition Intervention: Enteral nutrition, Provide education to increase nutrition knowledge, Discharge and transfer of nutrition care, Collaboration and referral of nutrition care Nutrition parameter to monitor: Weight Status, Pertinent Labs, Enteral, Nausea/Vomiting/Diarrhea Recommendations: Continue enteral nutrition as currently ordered: Nutren 1.5 with standard initiation and advancement to goal rate of 65 mL/hour for 24 hours/day. Water flushes: 120 mL flushes 6-7 times per day Enteral nutrition as recommended will provide 2250 total calories and 102 grams of protein and meets 100% of the Reference Daily Intake of vitamins and minerals per day. Home-going regimen titration to night time feeds 6 cartons of Nutren 1.5 Step 1: 65 mL/hr for 24 hours Step 2: 85 mL/hr for 18 hours Step 3: 105 mL/hr for 15 hours Step 4: 125 mL/hr for 12 hours Closely monitor serum potassium, phosphorus and magnesium due to refeeding risk and replace accordingly. Tube feeding supplies to be delivered today by DME ([employer]). Homegoing education has been completed. Clinical Nutrition will continue to follow. For questions about patient's nutritional care please contact pager [phone] on weekdays 07:30-16:00 or [phone] on weekends/holidays. * Mik Wylie M.D. - 05/03/2023 6:15 AM CDT [facility] Gastroenterology B Progress Note SUBJECTIVE Mr. Hola Lau is a 72 y.o. male hospitalized for N/V, abdominal pain, and duodenal mass concerning for malignancy. INTERVAL EVENTS: - Overnight, increased frequency of 5/10 gnawing abdominal pain. No BMs but passing gas. - Today, initially tolerated tube feeds at rate of 30 but then became nauseous and needed to stop. Radiograph confirmed correct placement of tube. Plan to restart tube feeds with antiemetic support, goal 65 before discharge. - Refeeding labs reassuring (phosphate 2.3, magnesium 1.7, potassium 4.2, all stable). Pathology still pending. OBJECTIVE VITAL SIGNS Temperature: [36.7 ??C] 36.7 ??C Heart Rate: [70-104] 104 Resp Rate: [17-23] 17 Blood Pressure: (122)/(56) 122/56 SpO2: [91 %-96 %] 91 % Pulse Rate: [70-108] 108 PHYSICAL EXAM General: alert and oriented x3, pleasant, resting in bed Skin: warm and dry, slightly pale, no rashes or lesions appreciated HEENT: pupils equal and reactive to light, dry mucous membranes, NJT in place CV: regular rate, rhythm, no murmurs, no LE edema Pulm: clear to auscultation bilaterally Abdomen: soft, nondistended, reducible ventral hernia, mild tenderness in epigastric and right upper quadrant regions Neuro: right foot drop (chronic), otherwise no focal deficits, moves all extremities spontaneously without difficulty, alert and oriented x3 DIAGNOSTICS I have reviewed the diagnostics from admission. ASSESSMENT / PLAN Mr. Hola Lau is a 72 y.o. male hospitalized on GI-B 04/29 for evaluation of abdominal pain, nausea/vomiting and inability to tolerate PO diet, in the setting of duodenal mass/wall thickening concerning for malignancy. He has known medical comorbidities including thyroid cancer on monoclonal antibodies, postsurgical hypothyroidism, type 2 diabetes, CKD stage 2, gout, hypertension, and hyperlipidemia. The patient is presenting w/ N/V, most notably post-prandial, with evidence of duodenum wall thickening/mass, concerning for malignancy. He was recently hospitalized at [facility] [place] w/ EGD and biopsy of masswith outside path not confirming malignancy. He underwent upper GI push enteroscopy w/ visualization of 5cm of circumferential, infiltrating mass with partial obstruction of duodenal lumen at 3rd portion of duodenum. Endoscopic images concerning for malignancy. Biopsies obtained and pending preliminary pathology read. At that time, NJT was placed and enteral nutrition was started. Otherwise, we did have general surgery evaluate and they recommended coordinated outpatient management, likely w/ Oncology. Given the patient's malnutrition, weight loss, lack of PO intake prior to admission, we are monitoring for refeeding syndrome after starting enteral nutrition. He had some hypophosphatemia, which we are replacing. PLAN FOR TODAY: - Restart tube feeds for discharge goal rate of 65 - Pathology pending # Nausea and vomiting # Unintentional weight loss # Duodenal mass/wall thickening, concern for malignancy # Abdominal lymphadenopathy # Indeterminate splenic lesion # Normocytic anemia, iron deficiency -s/p push enteroscopy w/ visualized 5cm circumferential infiltrative mass in 3rd portion duodenum, concerning for malignancy, pending biopsy histopath review -f/u for prelim histopath today -continue NJT w/ continuous enteral feeds -pain control with reduced dose Tylenol 500 mg q.6 hours -protonix 40 mg daily -home enteral nutrition to set up home nutrition supplies/education -once we have prelim path, we can schedule outpatient onc + surgical follow up # Hypokalemia # Hypophosphatemia # Monitoring for refeeding syndrome -monitor and replete extended lytes (including K, Mg, Phos) # Thyroid cancer s/p thyroidectomy # Postsurgical hypothyroidism Patient receives Taltz once monthly. -continue home levothyroxine to 224 mcg on Mondays, Wednesdays, Fridays, and Saturdays and 112 mcg on Sundays, Tuesdays, # T2DM Patient on Jardiance, Victoza, and metformin at home. Says he stopped taking Victoza recently givennausea/vomiting -hold home antihyperglycemics -continue moderate sliding scale insulin # HTN # HLD # Prior CVA 2002 -Patient had labetalol 150 mg b.i.d., lisinopril-hydrochlorothiazide 20-25 mg daily, 325 b.i.d. aspirin on [employer] med list. - he has indication for aspirin 81mg (for secondary CVD prevention, given TIA/stroke history) - he does not have clear indication for beta-migue therapy (has been on labetalol presumably for anti-hypertensive); he has been off beta-blockers for >1 week now and has not had any rebound tachycardia or other concerning irregular or rapid dysrhythmia; therefore, we will discontinue labetalol and no need to replace with other beta-blocking medications at this time - otherwise, he has been hypotensive/normotensive off of lisinopril/HCTZ and we favor not aggressively treating BP, w/ consideration of restarting in outpatient setting w/ PCP -hold to hold home antihypertensives given softer blood pressures, can slowly reinitiate as able -continue aspirin 81mg -continue home simvastatin 20 mg daily # CONNIE on CPAP -patient brought home [employer] -RT evaluation for best-fitting mask for patient while he has NJT (versus not using CPAP temporarily) # Gout Patient on allopurinol 300 mg daily and as-needed probenecid-colchicine for flares. -hold home allopurinol given ROMEO # Psoriasis On monthly Taltz, received his last injection on 04/24 Baseline Mobility: BMAT Level 4 (Able to stand and walk) Diet: Clear liquid diet tonight, NPO at midnight diet Tubes/lines: Lines, Drains, and Airways Drain Duration GI Tubes (Adults) Nasojejunal 12 Fr Nare;Left 2d 19h Closed/Suction Drain 1 Posterior Back Accordion 10 Fr. 1287d 18h Peripheral IV Duration Peripheral IV 04/29/23 18 G Anterior;Lower;Right Forearm 3d 13h Peripheral IV 05/02/23 20 G Anterior;Distal;Lower;Right Forearm 21h VTE prophylaxis: enoxaparin Code status: Full Code Disposition: Home Patient assessment/plan discussed w/ GI B marketing sales consultant, Umesh Yeh MD. Please page the GI-B service pager at [phone] with any questions. Mik Wylie M.D. * Stacy Wheat, D., R.Ph. - 05/02/2023 12:17 PM CDT Pharmacist Progress Note Reason for admission: abdominal pain, nausea/vomiting, unable to tolerate PO likely 2/2 duodenal mass/wall concerning for malignancy PMH: thyroid cancer s/p resection, postsurgical hypothyroidism, T2DM, CKD stage 2, gout, psoriasis,HTN, and HLD OBJECTIVE Home medications per PharmD (see 04/30 pharmacy note, changes in medications from home to discharge from [place] and PCP follow-up yesterday) Held: amitriptyline, empagliflozin, ixekizumab, labetalol, metformin, probenecid-colchicine Changed: simvastatin to atorvastatin (TI) New: thiamine, bowel regimen, multivitamin VTE Prophylaxis: enoxaparin 40 mg daily Renal function: Estimated Creatinine Clearance: 80.9 mL/min (by C-G formula based on SCr of 0.98 mg/dL). ASSESSMENT / PLAN Abdominal pain: patient recently hospitalized for possible cholecystitis. Found to have duodenal necrotizing ulcer. Antibiotics were stopped at OSH as not infectious source identified. Endoscopy completed, mass biopsied (pending). Lansoprazole daily. Pain: acetaminophen prn HTN/HLD: Discontinued lisinopril-HCTZ as this was stopped in the outpatient setting d/t low BP thislast week. SBP 70-110s. Stopped beta-migue as was started for hypertension per chart review. T2DM: SSI. Of note, metformin held on discharge from [facility] [place] and patient has not taken liraglutide since becoming sick. If restarting liraglutide on discharge, will need to retitrate from lower dose (0.6 mg daily) as has missed multiple doses. Hypothyroidism: continued home levothyroxine. Nutrition: recent 30 pound weight loss noted. NJ tube placement, fluoroscopy to check placement andplans to increase tube feeds. Monitoring for refeeding and thiamine x5 days. Medication reconciliation: Unclear what dose of aspirin patient was taking. Plans to continue aspirin 81 mg daily with CVA history. Stacy Wheat Pharm.D., R.Ph. * Abilio Goodson M.D. - 05/02/2023 6:24 AM CDT [facility] Gastroenterology B Progress Note SUBJECTIVE Mr. Hola Lau is a 72 y.o. male hospitalized for N/V, abdominal pain, and duodenal mass concerning for malignancy. Interval events: - Overnight, pt felt his NJT had moved after sneezing. XR showed tube placement past ligament of Treitz, but pt subsequently had nausea that felt similar to previous post-prandial symptoms, so TF were stopped. - This AM, pt denies any symptoms from overnight. Concerned about NJT placement and would prefer tohold off on feeds until positioning can be checked OBJECTIVE VITAL SIGNS Temperature: [36.6 ??C-37.1 ??C] 36.7 ??C Heart Rate: [68-110] 75 Resp Rate: [18-28] 21 Blood Pressure: (122-127)/(56) 122/56 SpO2: [89 %-97 %] 95 % Pulse Rate: [71-83] 73 PHYSICAL EXAM General: alert and oriented x3, pleasant, resting in bed Skin: warm and dry, slightly pale, no rashes or lesions appreciated HEENT: pupils equal and reactive to light, dry mucous membranes, NJT in place CV: regular rate, rhythm, no murmurs, no LE edema Pulm: clear to auscultation bilaterally Abdomen: soft, nondistended, reducible ventral hernia, mild tenderness in epigastric and right upper quadrant regions Neuro: right foot drop (chronic), otherwise no focal deficits, moves all extremities spontaneously without difficulty, alert and oriented x3 DIAGNOSTICS I have reviewed the diagnostics from admission. ASSESSMENT / PLAN Mr. Hola Lau is a 72 y.o. male hospitalized on GI-B 04/29 for evaluation of abdominal pain, nausea/vomiting and inability to tolerate PO diet, in the setting of duodenal mass/wall thickening concerning for malignancy. He has known medical comorbidities including thyroid cancer on monoclonal antibodies, postsurgical hypothyroidism, type 2 diabetes, CKD stage 2, gout, hypertension, and hyperlipidemia. The patient is presenting w/ N/V, most notably post-prandial, with evidence of duodenum wall thickening/mass, concerning for malignancy. He was recently hospitalized at [facility] [place] w/ EGD and biopsy of masswith outside path not confirming malignancy. He underwent upper GI push enteroscopy w/ visualization of 5cm of circumferential, infiltrating mass with partial obstruction of duodenal lumen at 3rd portion of duodenum. Endoscopic images concerning for malignancy. Biopsies obtained and pending preliminary pathology read. At that time, NJT was placed and enteral nutrition was started. Otherwise, we did have general surgery evaluate and they recommended coordinated outpatient management, likely w/ Oncology. Given the patient's malnutrition, weight loss, lack of PO intake prior to admission, we are monitoring for refeeding syndrome after starting enteral nutrition. He had some hypophosphatemia, which we are replacing. Plan for today: - Fluoroscopy to check NJT placement - If still having symptoms and tube is in right place, will touch base with Nutrition on changes inTF plan - Restart and uptitrate TF to goal prior to discharge - Path pending # Nausea and vomiting # Unintentional weight loss # Duodenal mass/wall thickening, concern for malignancy # Abdominal lymphadenopathy # Indeterminate splenic lesion # Normocytic anemia, iron deficiency -s/p push enteroscopy w/ visualized 5cm circumferential infiltrative mass in 3rd portion duodenum, concerning for malignancy, pending biopsy histopath review -f/u for prelim histopath today -continue NJT w/ continuous enteral feeds -pain control with reduced dose Tylenol 500 mg q.6 hours -protonix 40 mg daily -home enteral nutrition to set up home nutrition supplies/education -once we have prelim path, we can schedule outpatient onc + surgical follow up # Hypokalemia # Hypophosphatemia # Monitoring for refeeding syndrome -monitor and replete extended lytes (including K, Mg, Phos) # Thyroid cancer s/p thyroidectomy # Postsurgical hypothyroidism Patient receives Taltz once monthly. -continue home levothyroxine to 224 mcg on Mondays, Wednesdays, Fridays, and Saturdays and 112 mcg on Sundays, Tuesdays, # T2DM Patient on Jardiance, Victoza, and metformin at home. Says he stopped taking Victoza recently givennausea/vomiting -hold home antihyperglycemics -continue moderate sliding scale insulin # HTN # HLD # Prior CVA 2002 -Patient had labetalol 150 mg b.i.d., lisinopril-hydrochlorothiazide 20-25 mg daily, 325 b.i.d. aspirin on [employer] med list. - he has indication for aspirin 81mg (for secondary CVD prevention, given TIA/stroke history) - he does not have clear indication for beta-migue therapy (has been on labetalol presumably for anti-hypertensive); he has been off beta-blockers for >1 week now and has not had any rebound tachycardia or other concerning irregular or rapid dysrhythmia; therefore, we will discontinue labetalol and no need to replace with other beta-blocking medications at this time - otherwise, he has been hypotensive/normotensive off of lisinopril/HCTZ and we favor not aggressively treating BP, w/ consideration of restarting in outpatient setting w/ PCP -hold to hold home antihypertensives given softer blood pressures, can slowly reinitiate as able -continue aspirin 81mg -continue home simvastatin 20 mg daily # CONNIE on CPAP -patient brought home [employer] -RT evaluation for best-fitting mask for patient while he has NJT (versus not using CPAP temporarily) # Gout Patient on allopurinol 300 mg daily and as-needed probenecid-colchicine for flares. -hold home allopurinol given ROMEO # Psoriasis On monthly Taltz, received his last injection on 04/24 Baseline Mobility: BMAT Level 4 (Able to stand and walk) Diet: Clear liquid diet tonight, NPO at midnight diet Tubes/lines: Lines, Drains, and Airways Drain Duration GI Tubes (Adults) Nasojejunal 12 Fr Nare;Left 2d 0h Closed/Suction Drain 1 Posterior Back Accordion 10 Fr. 1286d 23h Peripheral IV Duration Peripheral IV 04/29/23 18 G Anterior;Lower;Right Forearm 2d 18h Peripheral IV 05/02/23 20 G Anterior;Distal;Lower;Right Forearm 1h VTE prophylaxis: enoxaparin Code status: Full Code Disposition: Home Patient assessment/plan discussed w/ GI B marketing sales consultant, Umseh Yeh MD. Please page the GI-B service pager at [phone] with any questions. Isaiah Goodson M.D. Associated attestation - Umesh Yeh M.D. - 05/02/2023 2:35 PM CDT I have interviewed and examined the patient. I have discussed current findings and management plan with the patient and team. The patient was concerned that his nasojejunal feeding tube may have become displaced, we performedradiologic interrogation which reveals the tip of the nasojejunal feeding tube to be in the right place. Plan as follows: Resume tube feeding per protocol Advanced per protocol Refeeding syndrome labs Mobilize as tolerated Supplies for home going Await pathology If pathology confirms malignancy, outpatient surgical Oncology and Medical Oncology appointments All discussed in detail, questions answered, understanding expressed. * Umesh Yeh M.D. - 05/01/2023 11:37 AM CDT Inpatient Progress Note 05/01/2023 I have interviewed and examined the patient. I have discussed current findings and management plan with the patient and team. Subjective: Clinically stable overnight. Tolerating nasojejunal feeding. Objective: Temperature: [36.5 ??C-36.6 ??C] 36.6 ??C Heart Rate: [54-98] 98 Resp Rate: [12-23] 20 Blood Pressure: (97-112)/(51-53) 112/51 SpO2: [91 %-98 %] 96 % Pulse Rate: [54-74] 74 Physical Exam: Sitting comfortably in bed. Assessment / Plan: #1 Duodenal mass with obstruction #2 Inability to eat, secondary to 1. #3 Nasojejunal feeding #4 High-risk for refeeding syndrome We have reached out to pathology, to try to expedite the read, and once we have this information wewill share this with the patient. We are continuing with nasojejunal feeding, monitoring for refeeding syndrome, and likely will transition to outpatient evaluation in approximately 48 hours. Plan as follows: Monitor for refeeding syndrome Nasojejunal feeding per protocol Pathology awaited Mobilize frequently as tolerated All discussed in detail, questions answered, understanding expressed. * Omar Ellis M.D., M.S. - 05/01/2023 9:56 AM CDT RST Gastroenterology B Progress Note SUBJECTIVE Mr. Hola Lau is a 72 y.o. male hospitalized for N/V, abdominal pain, and duodenal mass concerning for malignancy. Interval events: - no distress, no pain, has been tolerating minimal clear liquid PO w/ otherwise enteral feeding via NJT - remains afebrile, hemodynamically stable - Hgb stable >8 - pending prelim path report OBJECTIVE VITAL SIGNS Temperature: [36.5 ??C-36.6 ??C] 36.6 ??C Heart Rate: [54-79] 68 Resp Rate: [12-23] 21 Blood Pressure: (78-112)/(44-55) 112/51 SpO2: [85 %-98 %] 93 % Flow Rate (L/min): [0 L/min-4 L/min] 0 L/min Height: [175.3 cm] 175.3 cm Weight: [86.5 kg] 86.5 kg BMI (Calculated): [28.1 kg/m??] 28.1 kg/m?? Pulse Rate: [54-79] 70 PHYSICAL EXAM General: alert and oriented x3, pleasant, resting in bed Skin: warm and dry, slightly pale, no rashes or lesions appreciated HEENT: pupils equal and reactive to light, dry mucous membranes, NJT in place CV: regular rate, rhythm, no murmurs, no LE edema Pulm: clear to auscultation bilaterally Abdomen: soft, nondistended, reducible ventral hernia, mild tenderness in epigastric and right upper quadrant regions Neuro: right foot drop (chronic), otherwise no focal deficits, moves all extremities spontaneously without difficulty, alert and oriented x3 DIAGNOSTICS I have reviewed the diagnostics from admission. ASSESSMENT / PLAN Mr. Hola Lau is a 72 y.o. male hospitalized on GI-B 04/29 for evaluation of abdominal pain, nausea/vomiting and inability to tolerate PO diet, in the setting of duodenal mass/wall thickening concerning for malignancy. He has known medical comorbidities including thyroid cancer on monoclonal antibodies, postsurgical hypothyroidism, type 2 diabetes, CKD stage 2, gout, hypertension, and hyperlipidemia. The patient is presenting w/ N/V, most notably post-prandial, with evidence of duodenum wall thickening/mass, concerning for malignancy. He was recently hospitalized at [facility] w/ EGD and biopsy of masswith outside path not confirming malignancy. He underwent upper GI push enteroscopy w/ visualization of 5cm of circumferential, infiltrating mass with partial obstruction of duodenal lumen at 3rd portion of duodenum. Endoscopic images concerning for malignancy. Biopsies obtained and pending preliminary pathology read. At that time, NJT was placed and enteral nutrition was started. Patient has been tolerating this well. Otherwise, we did have general surgery evaluate and they recommended coordinated outpatient management, likely w/ Oncology. Given the patient's malnutrition, weight loss, lack of PO intake prior to admission, we are monitoring for refeeding syndrome after starting enteral nutrition. He had some hypophosphatemia, which we are replacing. # Nausea and vomiting # Unintentional weight loss # Duodenal mass/wall thickening, concern for malignancy # Abdominal lymphadenopathy # Indeterminate splenic lesion # Normocytic anemia, iron deficiency -s/p push enteroscopy w/ visualized 5cm circumferential infiltrative mass in 3rd portion duodenum, concerning for malignancy, pending biopsy histopath review -f/u for prelim histopath today -continue NJT w/ continuous enteral feeds -pain control with reduced dose Tylenol 500 mg q.6 hours -protonix 40 mg daily -home enteral nutrition to set up home nutrition supplies/education -once we have prelim path, we can schedule outpatient onc + surgical follow up # Hypokalemia # Hypophosphatemia # Monitoring for refeeding syndrome -monitor and replete extended lytes (including K, Mg, Phos) # Thyroid cancer s/p thyroidectomy # Postsurgical hypothyroidism Patient receives Taltz once monthly. -continue home levothyroxine to 224 mcg on Mondays, Wednesdays, Fridays, and Saturdays and 112 mcg on Sundays, Tuesdays, # T2DM Patient on Jardiance, Victoza, and metformin at home. Says he stopped taking Victoza recently givennausea/vomiting -hold home antihyperglycemics -continue moderate sliding scale insulin # HTN # HLD # Prior CVA 2002 -Patient had labetalol 150 mg b.i.d., lisinopril-hydrochlorothiazide 20-25 mg daily, 325 b.i.d. aspirin on [facility] med list. - he has indication for aspirin 81mg (for secondary CVD prevention, given TIA/stroke history) - he does not have clear indication for beta-migue therapy (has been on labetalol presumably for anti-hypertensive); he has been off beta-blockers for >1 week now and has not had any rebound tachycardia or other concerning irregular or rapid dysrhythmia; therefore, we will discontinue labetalol and no need to replace with other beta-blocking medications at this time - otherwise, he has been hypotensive/normotensive off of lisinopril/HCTZ and we favor not aggressively treating BP, w/ consideration of restarting in outpatient setting w/ PCP -hold to hold home antihypertensives given softer blood pressures, can slowly reinitiate as able -continue aspirin 81mg -continue home simvastatin 20 mg daily # CONNIE on CPAP -patient brought home Res[employer] -RT evaluation for best-fitting mask for patient while he has NJT (versus not using CPAP temporarily) # Gout Patient on allopurinol 300 mg daily and as-needed probenecid-colchicine for flares. -hold home allopurinol given ROMEO # Psoriasis On monthly Taltz, received his last injection on 04/24 Baseline Mobility: BMAT Level 4 (Able to stand and walk) Diet: Clear liquid diet tonight, NPO at midnight diet Tubes/lines: Lines, Drains, and Airways Drain Duration GI Tubes (Adults) Nasojejunal 12 Fr Nare;Left 23h Closed/Suction Drain 1 Posterior Back Accordion 10 Fr. 1285d 22h Peripheral IV Duration Peripheral IV 04/29/23 18 G Anterior;Lower;Right Forearm 1d 17h VTE prophylaxis: enoxaparin Code status: Full Code Disposition: Home Patient assessment/plan discussed w/ GI B marketing sales consultant, Umesh Yeh MD. Please page the GI-B service pager at [phone] with any questions. Omar Ellis M.D., M.S. * Stacy Wheat Pharm.D., R.Ph. - 04/30/2023 4:14 PM CDT Images from the original note were not included. Pharmacist Progress Note Reason for admission: abdominal pain, nausea/vomiting, unable to tolerate PO likely 2/2 duodenal mass/wall concerning for malignancy PMH: thyroid cancer s/p resection, postsurgical hypothyroidism, T2DM, CKD stage 2, gout, psoriasis,HTN, and HLD OBJECTIVE Home medications per PharmD (see below, changes in medications from home to discharge from [facility] and PCP follow-up yesterday) Held: amitriptyline, empagliflozin, ixekizumab, labetalol, metformin, probenecid-colchicine Changed: simvastatin to atorvastatin (TI) New: thiamine, bowel regimen, multivitamin VTE Prophylaxis: enoxaparin 40 mg daily Renal function: Estimated Creatinine Clearance: 57 mL/min (A) (by C-G formula based on SCr of 1.39 mg/dL (H)). ASSESSMENT / PLAN Abdominal pain: patient recently hospitalized for possible cholecystitis. Found to have duodenal necrotizing ulcer. Antibiotics were stopped at OSH as not infectious source identified. Endoscopy today. Lansoprazole daily. Pain: acetaminophen prn HTN/HLD: recommend discontinuing lisinopril-HCTZ held order as this was stopped in the outpatient setting d/t low BP this last week. SBP 70-110s. If restarting labetalol, recommend reduced dose as patient was discharged from [facility] with metoprolol 25 mg daily. Patient unclear which he was to be taking at home. T2DM: SSI. Of note, metformin held on discharge from [facility] and patient has not taken liraglutide since becoming sick. Hypothyroidism: continued home levothyroxine. Nutrition: recent 30 pound weight loss noted. NJ tube placement. Recommend monitoring for refeedingand thiamine x5 days. Medication reconciliation: patient stated PCP and recent discharge discontinued aspirin. Recommend discontinuing from inpatient list unless indicated. Admission Medication History Note Adherence issues: No concerns Medication list source: Patient, Family member, Care Everywhere or chart review, and Pharmacy or dispense records Medication related information: Patient recently discharged from [facility] as well as had PCP visit yesterday, all ofich had medication changes. Patient unsure which medications they should be on at this time. Patient states aspirin was stopped at PCP visit. Aspirin was also stopped on discharge from [facility] per chart review. Patient states PCP yesterday stopped antihypertensive medications as SBP was in the 70s. Metformin was held on discharge from [facility]. Patient states dose was reduced in January 2023 from 2 gramsto 1 gram as BG was low with use of liraglutide. Patient states being on labetalol prior to admission to [facility], discharge med list shows transitioned to metoprolol 25 mg daily. Patient states had not started new medication. Unclear what medication patient should be on or if a beta-migue is needed. Patient was discharged from [facility] with ondansetron prn, prochlorperazine prn, and pantoprazole 40 mgBID however states not taking these medications. Prior to Admission Medications Med List Status: Pharmacy Complete Set By: Stacy Wheat, PharmJohannaDJohanna, R.Ph. at 04/30/2023 4:14 PM Taking? Last Dose Informant Start Date End Date LT acetaminophen (TYLENOL) 500 mg tablet -- -- 10/23/19 -- Take 2 tablets (1,000 mg total) by mouth every 6 (six) hours as needed for pain Indications: pain. allopurinoL (ZYLOPRIM) 300 mg tablet -- -- 09/27/20 -- Take 1 tablet by mouth daily. amitriptyline (ELAVIL) 25 mg tablet More than a month Self -- -- Take 12.5 mg by mouth at bedtime as needed (neuropathy). empagliflozin (Jardiance) 10 mg tablet -- -- 10/04/22 10/04/23 Take 1 tablet (10 mg total) by mouth every morning before breakfast. ixekizumab (TALTZ) 80 mg/mL syringe injection 04/23/2023 -- 07/24/17 -- Inject 80 mg under the skin every 28 (twenty-eight) days. One injection per month labetalol (for_NORMODYNE) 100 mg tablet -- -- 11/03/13 -- Take 1.5 tablets by mouth 2 (two) times a day. Notes: Patient was taking prior to admission at [place], changed to metoprolol. Howeverpatient states not taking metoprolol. Unclear if patient is supposed to be taking a beta migue levothyroxine (SYNTHROID, LEVOTHROID) 112 mcg tablet -- -- 01/09/23 -- TAKE 2 TABLETS(224 MCG) BY MOUTH DAILY. EXCEPT ON SUNDAYS, TUESDAYS, AND THURSDAYS TAKE ONLY 1 TABLET 112 MCG. HYPOTHYROIDISM liraglutide (Victoza 2-Umesh) 0.6 mg/0.1 mL (18 mg/3 mL) injection More than a month -- 07/18/22 07/18/23 Inject 1.2 mg under the skin every morning. Notes: Place on file metFORMIN (GLUCOPHAGE) 1,000 mg tablet Not Taking -- 01/15/23 02/19/24 Take 1 tablet (1,000 mg total) by mouth daily with dinner. Patient not taking: Reported on 04/30/2023 pen needle, diabetic (UltiCare Pen Needle) 31 gauge x 01/22 needle -- -- 07/18/22 -- 1 Injection by abdominal subcutaneous route daily. Notes: Place on file probenecid-colchicine (COLBENEMID) 500-0.5 mg per tablet More than a month -- 10/25/21 -- TAKE 1 TABLET BY MOUTH TWICE DAILY NEEDED FOR GOUT FLARE simvastatin (ZOCOR) 20 mg tablet -- -- 07/18/22 -- TAKE 1 TABLET(20 MG) BY MOUTH AT BEDTIME Stacy Wheat, PharmJohannaDJohanna, R.Ph. * Omar Ellis M.D., M.S. - 04/30/2023 6:39 AM CDT RST Gastroenterology B Progress Note SUBJECTIVE Mr. Hola Lau is a 72 y.o. male hospitalized for N/V, abdominal pain, and duodenal mass concerning for malignancy. Interval events: - no distress, no pain, has been NPO w/o N/V - remains afebrile, hemodynamically stable - Hgb 7.7, normal WBC; no reported hematochezia, melenic stools OBJECTIVE VITAL SIGNS Temperature: [36.6 ??C-37 ??C] 37 ??C Heart Rate: [64-95] 65 Resp Rate: [15-32] 24 Blood Pressure: (79-116)/(43-68) 108/64 SpO2: [94 %-100 %] 96 % Height: [175.3 cm] 175.3 cm Weight: [87.3 kg] 87.3 kg BSA (Calculated - sq m): [2.06 sq meters] 2.06 sq meters BMI (Calculated): [28.4 kg/m??] 28.4 kg/m?? Pulse Rate: [64-86] 67 PHYSICAL EXAM General: alert and oriented x3, pleasant, resting in bed Skin: warm and dry, slightly pale, no rashes or lesions appreciated HEENT: pupils equal and reactive to light, moist mucous membranes, no oral lesions appreciated CV: regular rate, rhythm, no murmurs, no LE edema Pulm: clear to auscultation bilaterally Abdomen: soft, nondistended, reducible ventral hernia, mild tenderness in epigastric and right upper quadrant regions Neuro: right foot drop (chronic), otherwise no focal deficits, moves all extremities spontaneously without difficulty, alert and oriented x3 DIAGNOSTICS I have reviewed the diagnostics from admission. ASSESSMENT / PLAN Mr. Hola Lau is a 72 y.o. male hospitalized on GI-B 04/29 for evaluation of abdominal pain, nausea/vomiting and inability to tolerate PO diet, in the setting of duodenal mass/wall thickening concerning for malignancy. He has known medical comorbidities including thyroid cancer on monoclonal antibodies, postsurgical hypothyroidism, type 2 diabetes, CKD stage 2, gout, hypertension, and hyperlipidemia. The patient is presenting w/ N/V, most notably post-prandial, with evidence of duodenum wall thickening/mass, concerning for malignancy. He was recently hospitalized at [facility] w/ EGD and biopsy of masswith outside path not demonstrating malignancy, but otherwise non-specific inflammatory changes jose necrotizing duodenal ulcer visualized on endoscopy. We will repeat UGI push enteroscopy w/ further evaluation of duodenal mass/ulceration, with repeat biopsies, given high suspicion for malignancy. Given the patient's significantly limited ability to tolerate PO intake, dehydration on admission, and recent 30 lbs weight loss in past 3 months, we feel that temporary NJT placement and enteral nutrition would ultimately benefit patient. We discussed this and the rationale w/ patient, and he was in agreement. We will have nutrition colleagues help with recommendations on enteral nutrition regimen to start. Pending his clinical course, he may be able to discharge out of hospital on NJT enteral feeds whilewaiting for final histopathology and treatment plans are constructed. # Nausea and vomiting # Unintentional weight loss # Duodenal mass/wall thickening, concern for malignancy # Abdominal lymphadenopathy # Indeterminate splenic lesion # Normocytic anemia -NPO -extended UGI endoscopy/push enteroscopy w/ repeat biopsy of duodenal mass -NJT placement -consult nutrition service for enteral nutrition recommendations -add multivitamin -pain control with reduced dose Tylenol 500 mg q.6 hours -protonix 40 mg BID, could transition to daily if no evidence of PUD/bleeding on endoscopy -for anemia, continue to monitor for any clinical bleeding; transfusion threshold Hgb < 7g/dL; will check reticulocytes, smear, iron studies, B12 # ROMEO on CKD 2, likely prerenal Patient appears to have a baseline creatinine around 1.1-1.3. Most recent creatinine prior to todaywas approximately 1.1 at discharge on 04/27 from prior hospitalization. -s/p 2 L fluid resuscitation in emergency department -recheck CMP in the morning -if renal function not improving after volume resuscitation, obtain urinalysis to further investigate causes # Hypokalemia Likely in the setting of recurrent vomiting -monitor and replete extended lytes (including K, Mg, Phos) # Thyroid cancer s/p thyroidectomy # Postsurgical hypothyroidism Patient receives Taltz once monthly. -continue home levothyroxine to 224 mcg on Mondays, Wednesdays, Fridays, and Saturdays and 112 mcg on Sundays, Tuesdays, # T2DM Patient on Jardiance, Victoza, and metformin at home. Says he stopped taking Victoza recently givennausea/vomiting -hold home antihyperglycemics -continue moderate sliding scale insulin # HTN # HLD # Prior CVA 2002 Patient takes labetalol 150 mg b.i.d. and lisinopril-hydrochlorothiazide 20-25 mg daily. He also takes full-dose aspirin 325 b.i.d. given prior stroke in 2002. -had been discharged from [facility] on metoprolol (replacing labetalol); pending further pharmacy med reconciliation -hold home antihypertensives given softer blood pressures, can slowly reinitiate as able -hold home aspirin -continue home simvastatin 20 mg daily # CONNIE on CPAP -patient brought home [employer] -RT evaluation for best-fitting mask for patient while he has NJT (versus not using CPAP temporarily) # Gout Patient on allopurinol 300 mg daily and as-needed probenecid-colchicine for flares. -hold home allopurinol given ROMEO # Psoriasis On monthly Taltz, received his last injection on 04/24 Baseline Mobility: BMAT Level 4 (Able to stand and walk) Diet: Clear liquid diet tonight, NPO at midnight diet Tubes/lines: Lines, Drains, and Airways Drain Duration Closed/Suction Drain 1 Posterior Back Accordion 10 Fr. 1284d 19h Peripheral IV Duration Peripheral IV 04/29/23 18 G Anterior;Lower;Right Forearm 14h VTE prophylaxis: enoxaparin Code status: Full Code Disposition: Home Patient assessment/plan discussed w/ GI B marketing sales consultant, Umesh Yeh MD. Please page the GI-B service pager at [phone] with any questions. Omar Ellis M.D., M.S. Associated attestation - Umesh Yeh M.D. - 04/30/2023 4:46 PM CDT I have interviewed and examined the patient. I have discussed current findings and management plan with the patient and team. The patient is a 72-year-old man who has been having progressive difficulty with oral intake commonhas been found to have an infiltrative mass with ulceration involving the third portion of duodenum. At upper endoscopy today this ulcerated infiltrative mass lesion was found to extend over proximally 5 cm length, in the third portion of duodenum, with the 9.7 mm scope passing through the area. Nasojejunal feeding tube was left in place. Assessment and plan: Infiltrative ulcerated jejunal mass lesion Gastrointestinal bleeding secondary to 1. Above Partial obstruction secondary to 1. Above Anemia secondary to 1. Above Plan as follows: Nasojejunal feeding per protocol Mobilize patient, with care, he has a foot brace and walker Await pathology Surgery consultation All discussed in detail, questions answered, understanding expressed. documented in this encounter H&P Notes * Aleida Elmore M.D. - 04/29/2023 7:37 PM CDT RST Gastroenterology B Admission Note SUBJECTIVE CHIEF COMPLAINT Nausea/vomiting, abdominal pain HISTORY OF PRESENT ILLNESS Mr. Hola Lau is a 72 y.o. male with medical comorbidities including thyroid cancer s/p resection, postsurgical hypothyroidism, type 2 diabetes, CKD stage 2, gout, psoriasis, hypertension, and hyperlipidemia who presented to the ED on 04/29 for evaluation of abdominal pain and vomiting in the setting of likely malignancy. Prior to admission: The patient reports an approximate 2 to three-week history of feeling unwell. This initially started with decreased appetite and abdominal pain. This then progressed to nausea and vomiting after mostmeals. He was initially still able to eat, but would then experience postprandial nausea and vomiting about 3-4 hours after eating. He also experienced dark stools when his abdominal pain initially began, which progressively lightened to a mucousy diarrhea over the past day. Given his ongoing symptoms, he was initially seen in the [facility] on 04/22 where he was noted to have a thickened gallbladder wall to 0.7 cm on imaging, was febrile to 102?? F,and hypotensive to 90s/50s. He was given vancomycin and Zosyn, initiated on pressors [facility] due to concern for sepsis secondary to presumed cholecystitis. Upon his arrival to [place], he was stable and weaned off pressors. He did have mildly elevated liver tests with a normal bilirubin, alk-phos of 226, ALT of 65, AST of 85. CT of the abdomen and pelvis showed a nonobstructive masslike thickening of the duodenum, predominantly involving the 3rd partof the duodenum with a mildly dilated common bile duct and distended gallbladder, however bedside ultrasound did not show any overt evidence of cholecystitis. During his hospital stay, workup for infection was relatively unremarkable. Hypotension resolved with fluids. He did have 2 more febrile episodes during his admission, so was continued on Zosyn. He was found to have a newly low hemoglobin in the 8- 9 range as well as an ROMEO that improved with fluids. He underwent EGD on 04/24 which showed duodenal necrotizing ulcer. Biopsy was performed, which was read as a necroinflammatory ulcer with duodenal mucosa, acute and chronic inflammation without evidence of active malignancy. However, therewas concern for ongoing malignancy. He was initiated on PPI. Antibiotics were stopped on 04/25 due to no clear source of infection, negative blood cultures, normal white blood cell count, and resolved fevers. He was discharged on 04/27. Since his discharge, the patient reports that he has not been able to eat or drink much of anythingover the past 5 days. He has been able to drink some liquids, but we will still occasionally experience vomiting with this. He is now having clear watery type stools without noticeable melena. He hadan outpatient follow-up appointment this morning at the [facility]. During this appointment,he was found to be hypotensive with a blood pressure of 78/39, and was subsequently recommended to go to the [facility] ED for further workup. [facility] ED: In the ED, the patient was initially hypotensive with a blood pressure 79/56, which then spontaneously corrected to 111/62 about 5 minutes later. He was otherwise hemodynamically stable. Laboratory workup was notable for hemoglobin of 7.9, normal platelets and white blood cell count, INR 1.2. CMP was notable for potassium of 3.2, BUN 21, creatinine 1.6, bilirubin 0.3, ALT 36, AST 32, moderately elevated alk-phos of 188, an albumin of 3.3. Lipase and lactate were normal. TSH was normal at 3.9. Blood cultures were drawn. 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 He was given 2 L ofnormal saline in the emergency department. Given concern for failure to thrive at home, he was admitted to the [facility] GI B service for evaluation and management. GI B Course: On arrival to the floor, the patient was hemodynamically stable and afebrile. He says that he is currently feeling okay. He denies any current abdominal pain at rest, and denies nausea and vomiting currently given that he has not eaten much. In thinking back, the patient says that he feels as though his appetite started to decrease probably around January of this year. He thinks he has lost about 30 lb since then. However, he did not start to notice significant postprandial nausea and vomiting until probably about 2 or 3 weeks ago. He denies any current chest pain, shortness a breath, dizziness, lightheadedness, dysuria, urinary retention. He takes full-dose aspirin b.i.d. given a prior stroke in 2002. He denies any other NSAID use. The patient lives at home with his partner, Rhona in [facility]. He is a prior smoker, but quit about 40 years ago. He drinks maybe 1 or 2 alcoholic drinks per week. He denies any other drug use. Current Outpatient Medications on File Prior to Encounter: acetaminophen (TYLENOL) 500 mg tablet, Take 2 tablets (1,000 mg total) by mouth every 6 (six) hoursas needed for pain Indications: pain. allopurinoL (ZYLOPRIM) 300 mg tablet, Take 1 tablet by mouth daily. amitriptyline (ELAVIL) 25 mg tablet, Take 25 mg by mouth at bedtime as needed. Take 1/2 tablet (12.5mg) by mouth daily. aspirin 325 mg tablet, Take 1 tablet by mouth 2 (two) times a day. empagliflozin (Jardiance) 10 mg tablet, Take 1 tablet (10 mg total) by mouth every morning before breakfast. ixekizumab (TALTZ) 80 mg/mL syringe injection, Inject 80 mg under the skin every 28 (twenty-eight) days. One injection per month labetalol (for_NORMODYNE) 100 mg tablet, Take 1.5 tablets by mouth 2 (two) times a day. levothyroxine (SYNTHROID, LEVOTHROID) 112 mcg tablet, TAKE 2 TABLETS(224 MCG) BY MOUTH DAILY. EXCEPT ON SUNDAYS, TUESDAYS, AND THURSDAYS TAKE ONLY 1 TABLET 112 MCG. HYPOTHYROIDISM liraglutide (Victoza 2-Umesh) 0.6 mg/0.1 mL (18 mg/3 mL) injection, Inject 1.2 mg under the skin every morning. lisinopril-hydroCHLOROthiazide (PRINZIDE,ZESTORETIC) 20-25 mg per tablet, Take 1 tablet by mouth 2 (two) times a day. metFORMIN (GLUCOPHAGE) 1,000 mg tablet, Take 1 tablet (1,000 mg total) by mouth daily with dinner. multivitamin tablet, Take 1 tablet by mouth every evening. pen needle, diabetic (UltiCare Pen Needle) 31 gauge x 5/16 needle, 1 Injection by abdominal subcutaneous route daily. probenecid-colchicine (COLBENEMID) 500-0.5 mg per tablet, TAKE 1 TABLET BY MOUTH TWICE DAILY NEEDED FOR GOUT FLARE simvastatin (ZOCOR) 20 mg tablet, TAKE 1 TABLET(20 MG) BY MOUTH AT BEDTIME OBJECTIVE VITAL SIGNS Temperature: [36.6 ??C-36.7 ??C] 36.6 ??C Heart Rate: [68-95] 95 Resp Rate: [15-32] 21 Blood Pressure: (79-116)/(43-68) 108/64 SpO2: [94 %-100 %] 98 % Height: [175.3 cm] 175.3 cm Weight: [87.3 kg] 87.3 kg BSA (Calculated - sq m): [2.06 sq meters] 2.06 sq meters BMI (Calculated): [28.4 kg/m??] 28.4 kg/m?? Pulse Rate: [64-86] 83 PHYSICAL EXAM General: Alert and oriented x3, sitting at the edge of the bed comfortably, no acute distress Skin: Warm and dry, slightly pale, no rashes or lesions appreciated Eyes: Pupils equal and reactive to light, extraocular movements intact ENT: Moist mucous membranes, no oral lesions appreciated Lungs: Normal work of breathing on room air, mildly decreased breath sounds bibasilarly, no wheezes, rhonchi or crackles appreciated Heart: Regular rate, occasional skipped beat every 4th or 5th beat, faint systolic murmur heard best at the apex Abdomen: Soft, nondistended, reducible ventral hernia. Tenderness mostly in left lower quadrant, with mild tenderness in epigastric and right upper quadrant regions. 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 ASSESSMENT / PLAN Mr. Hola Lau is a 72 y.o. male with medical comorbidities including thyroid cancer on monoclonal antibodies, postsurgical hypothyroidism, type 2 diabetes, CKD stage 2, gout, hypertension, and hyperlipidemia who presented to the ED on 04/29 for evaluation of abdominal pain, and vomiting inthe setting of likely malignancy. Overall, the patient's clinical presentation seems most compatible with a duodenal malignancy. While he has been previously admitted for presumed sepsis, there was no identified source, and it was very likely that his hypotension and fever could have been secondary to his malignancy. He did have evidence of mildly elevated liver enzymes with mild biliary ductal dilatation and gallbladder distention, which I suspect is likely coming from mass effect from his duodenal mass. Although prior biopsy did not show evidence of cancer, his entire clinical picture with extreme weight loss, poor appetite, nausea and vomiting, as well as a known ulcerating duodenal mass, raise high suspicion for a primary duodenal malignancy, likely either a lymphoma or potentially neuroendocrine tumor. He also has evidence of an indeterminate subcapsular splenic lesion, which could potentially be a metastatic lesion. It is possible that he has had significant inflammation secondary to aspirin use, which has now resulted in stenosis and ulceration, but I suspect that this is less likely. We will provide the patient with fluid supplementation as needed, and have him NPO at midnight for repeat EGD with biopsy. We will also test for H pylori during this procedure. We will monitor him for ongoing signs of infection, as well as follow up his blood cultures drawn in the emergency department, but I do not feel asthough he warrants need for antibiotic initiation at this current moment. We will also have him evaluated by our dietitians due to ongoing malnutrition secondary to his nausea and vomiting. # Nausea and vomiting # Unintentional weight loss # Duodenal mass, concern for malignancy # Abdominal lymphadenopathy # Indeterminate splenic lesion # Normocytic anemia -Clear liquid diet tonight -NPO at midnight for EGD for repeat biopsy of duodenal mass -consult dietitian given unintentional weight loss and likely malnutrition -pain control with reduced dose Tylenol 500 mg q.6 hours -initiate Protonix 40 mg BID given known duodenal ulceration # ROMEO on CKD 2, likely prerenal Patient appears to have a baseline creatinine around 1.1-1.3. Most recent creatinine prior to todaywas approximately 1.1 at discharge on 04/27 from prior hospitalization. -s/p 2 L fluid resuscitation in emergency department -recheck CMP in the morning -if renal function not improving after volume resuscitation, obtain urinalysis to further investigate causes # Hypokalemia Likely in the setting of recurrent vomiting -replete now and recheck potassium in the morning -obtain magnesium and phosphorus with morning labs # Thyroid cancer s/p thyroidectomy # Postsurgical hypothyroidism Patient receives Taltz once monthly. -continue home levothyroxine to 224 mcg on Mondays, Wednesdays, Fridays, and Saturdays and 112 mcg on Sundays, Tuesdays, # T2DM Patient on Jardiance, Victoza, and metformin at home. Says he stopped taking Victoza recently givennausea/vomiting -hold home antihyperglycemics -initiate moderate sliding scale insulin # HTN # HLD # Prior CVA 2002 Patient takes labetalol 150 mg b.i.d. and lisinopril-hydrochlorothiazide 20-25 mg daily. He also takes full-dose aspirin 325 b.i.d. given prior stroke in 2002. -hold home antihypertensives given softer blood pressures, can slowly reinitiate as able -hold home aspirin tonight and tomorrow morning, if needs to be re-initiated, patient may need to be on PPI going forward given duodenal ulceration -continue home simvastatin 20 mg daily # CONNIE on CPAP -patient brought home ResMed # Gout Patient on allopurinol 300 mg daily and as-needed probenecid-colchicine for flares. -hold home allopurinol given ROMEO # Psoriasis On monthly Taltz, received his last injection on 04/24 Baseline Mobility: BMAT Level 4 (Able to stand and walk) Diet: Clear liquid diet tonight, NPO at midnight diet Tubes/lines: Lines, Drains, and Airways Drain Duration Closed/Suction Drain 1 Posterior Back Accordion 10 Fr. 1284d 11h Peripheral IV Duration Peripheral IV 04/29/23 18 G Anterior;Lower;Right Forearm 6h VTE prophylaxis: SCD's Code status: Full Code Disposition: Home Patient will be staffed with GI B marketing sales consultant, Umesh Yeh MD, in the morning. Please page the GI B service pager at [phone] with any questions. Aleida Elmore MD PGY-2, Internal Medicine documented in this encounter Consult Notes * Renata Barber M.SJohanna, RDN, LD - 05/01/2023 3:30 PM CDTAssociated Order(s): IP CONSULT TO HOME ENTERAL SERVICE Received consult for Home Enteral Nutrition supply arrangements. Reviewed patient's medical record. Please see nutrition assessment and tube feeding recommendationsfrom the hospital dietitian (RDN) in their note dated 04/30/23. Reason for tube feeding: abdominal pain, nausea/vomiting and inability to tolerate oral diet in thesetting of duodenal mass/wall thickening concerning for malignancy. Tube information: 12 [place] tube placed on 04/30/23. Intervention Care Coordination In collaboration with the hospital dietitian (RDN) who provided Patient with information on: -Expected coverage for home [...] DME that will provide home enteral supplies: [facility] [phone]. Patient Refill number Supply delivery plans: Company will coordinate delivery to patient's room prior to dismissal. Provided DME company contact information noted above and Home Enteral Nutrition contact information. Encouraged them to call with questions after dismissal: [phone] For questions about home enteral supply arrangements prior to dismissal, contact [facility] [phone]. For questions about current inpatient nutrition plan contact hospital dietitian. Patient verbalized understanding of information discussed. Follow-up Plan Will contact once after dismissal then will need to see in clinic to establish care. * Maira Singh - 05/01/2023 1:40 PM CDTAssociated Order(s): IP CONSULT TO DIETITIAN Clinical Nutrition: Education/Counseling DESCRIPTION Mr. Lau is being seen for Home going tube feeding using the pump diet education. ASSESSMENT Patient and friend, Rhona, receptive to diet education, all questions answered at this time. See education activity for details. PLAN If patient remains hospitalized, will provide nutrition assessment per departmental guidelines. For questions about patient's nutritional care please contact pager [phone] on weekdays 07:30-16:00 or [phone] on weekends/holidays. * Bandar Hawkins M.D. - 04/30/2023 9:44 PM CDT General Surgery Chief Resident Supervisory Note Patient seen with Dr. Espinoza. Agree with his note as documented. In brief this is a 72-year-old male with a D3 near circumferential mass not causing complete obstruction. He is not having bilious emesis. He is clearing his secretions. He underwent an upper endoscopy and the proceduralist was able to traverse the lesion and place a distal feeding tube during endoscopy. Biopsies were obtained. Medical history is that of a prior stroke, hypothyroid, hypertension, hyperlipidemia, CKD, diabetes, CONNIE, and thyroid cancer status post resection. He is not had any abdominal operations. On exam he has a soft and nondistended abdomen. CT abdomen pelvis demonstrates a near circumferential mass in the 3rd portion of the duodenum concerning for malignancy At this stage the patient is not clinically obstructed and does not require acute care surgical intervention. He has distal feeding access and I do not see a role for an inpatient operation such as abypass. Biopsies and pathology from his endoscopy are still pending. We would recommend following up his biopsy results and proceeding with the appropriate cancer specific workup and treatment. Elective referral to an oncologic surgeon could be made in the outpatient setting. Bandar Hawkins MD Chief Resident General Surgery [phone] pager [email or web address] * Tim Espinoza M.D. - 04/30/2023 6:01 PM CDTAssociated Order(s): IP CONSULT TO GENERAL SURGERY History and Physical Hospital Day: 2 Reason for consult: Circumferential obstructing mass around the duodenal SUBJECTIVE Chief Complaint: Progressive anorexia HPI: Mr. Hola Lau is a 72 y.o. male with a history of thyroid cancer s/p thyroidectomy, stroke with residual deficits, type 2 diabetes, CKD stage 2, gout, hypertension, hyperlipidemia, who presented to the emergency department with fatigue, lethargy and inability to keep oral intake down. Hissymptoms began months ago where he experienced nausea and vomiting after having solid foods. This progressively became worse and is currently affecting his ability to tolerate liquids. He vomits regularly and the adjusted food and yellow covered with vomitus. This has caused him to go in to the emergency multiple times the past month for hypotension, dehydration and lethargy. He denies ever having bilious vomitus, fevers, chills, diarrhea, shortness of breath, chest pain, neck pain. The patienthas an extensive smoking history and history of chewing tobacco. He has exercise intolerance due tohis recent stroke and is deconditioned unable to walk for more than a block before becoming short of breath. His last cardiac workup was done in 2002 where he underwent a stress test that was negative for cardiac ischemia. Consider preoperative optimization with smoking cessation, cardiac workup, malnutrition workup and conditioning. He is currently admitted to gastroenterology for workup of his progressive anorexia and 30 lbs weight loss. They discovered a mass compressing the 3rd part of his duodenal on CT scan. They have biopsied his undifferentiated mass endoscopically and placed in [place] tube. Biopsy results are pending. Given his history, physical exam, recent labs and imaging it is not believe the patient is acutely obstructed. Pertinent History Review: MEDICAL HISTORY Stroke (residual right-sided deficits), thyroid cancer s/p resection and ablation therapy, hypothyroidism, psoriasis, HTN, HLD, dm 2, CKD, CONNIE SURGICAL HISTORY L4-5 laminectomy 2019 With thyroidectomy in 1992 Tonsillectomy 1950 No recent abdominal surgeries. CURRENT MEDICATIONS Pertinent Medications: Allopurinol, empagliflozin, Ixekizumab, levothyroxine, simvastatin, amitriptyline, labetalol, Liraglutide, metformin, probenecid- colchicine. Denies use of blood thinners. ALLERGIES/CONTRAINDICATIONS No allergies to antibiotics SOCIAL HISTORY Former smoker. Smoked 1-2 packs a day for 40 years (greater than 60 pack-year history). Recently quit chewing tobacco 2 weeks ago. Full History per EMR: Past Medical History: Diagnosis Date Apnea Sleep Obstructive 1994 uses CPAP Arthritis psoriatic Cataract Chronic Kidney Disease NOS Diabetes Mellitus NOS Hyperlipidemia Hypertension NOS Hypothyroidism Malignant Neoplasm Of [...] VASECTOMY 1978 Current Facility-Administered Medications: acetaminophen tablet 500 mg (TYLENOL), 500 mg, oral, Q6H PRN, Aleida Elmore M.D. [START ON 05/01/2023] allopurinoL tablet 300 mg (ZYLOPRIM), 300 mg, small bowel tube, Daily, Omar Ellis M.D., M.S. [Held by provider] aspirin chewable tablet 81 mg, 81 mg, small bowel tube, Daily, Omar Ellis M.D., M.S. atorvastatin tablet 20 mg (LIPITOR), 20 mg, small bowel tube, Daily at bedtime, Omar Ellis M.D., M.S. dextrose 40 % gel 15 g (GLUTOSE), 15 g, oral, PRN, Omar Ellsi M.D., M.S. dextrose 50 % injection 12.5 g, 12.5 g, intravenous, PRN, Omar Ellis M.D., M.S. dextrose 50 % injection 25 g, 25 g, intravenous, PRN, Omar Ellis M.D., M.S. [START ON 05/01/2023] enoxaparin injection 40 mg (LOVENOX), 40 mg, subcutaneous, Daily, Jacob Ellis M.D., M.S. glucagon injection 1 mg (GlucaGen), 1 mg, subcutaneous, Once PRN, Omar Ellis M.D., M.S. glucagon injection 1 mg (GlucaGen), 1 mg, subcutaneous, Once PRN, Omar Ellis M.D., M.S. glucose chewable tablet 16 g, 16 g, oral, PRN, Omar Ellis M.D., M.S., 16 g at 04/30/23 1755 insulin aspart U-100 injection 0-13 Units (NovoLOG FlexPen), 0-13 Units, subcutaneous, TID, Aleida Elmore M.D. ipratropium 21 mcg (0.03 %) nasal spray 2 spray (ATROVENT), 2 spray, each nostril, BID PRN, Yue Mills M.D. iron dextran 975 mg of iron in NaCl 0.9% IVPB (INFED), 975 mg of iron, intravenous, Once, Omar Ellis M.D., M.S., Last Rate: 120 mL/hr at 04/30/23 1715, 975 mg of iron at 04/30/23 1715 [Held by provider] labetalol tablet 150 mg (NORMODYNE), 150 mg, oral, BID, Aleida Elmore M.D. [START ON 05/01/2023] lansoprazole suspension 30 mg (PREVACID), 30 mg, oral, Daily before breakfast,Stacy Wheat PharmBeny, R.Ph. [START ON 05/02/2023] levothyroxine tablet 112 mcg (SYNTHROID, LEVOTHROID), 112 mcg, small bowel tube, Once per day on Sat, Omar Ellis M.D., M.S. [START ON 05/01/2023] levothyroxine tablet 224 mcg (SYNTHROID, LEVOTHROID), 224 mcg, small bowel tube, Once per day on Sat, Omar Ellis M.D., M.S. [Held by provider] lisinopril-hydroCHLOROthiazide 20-25 mg per tablet 1 tablet (PRINZIDE,ZESTORETIC), 1 tablet, oral, Daily, Aleida Elmore M.D. [START ON 05/01/2023] multivitamin/mineral- tablet 1 tablet, 1 tablet, small bowel tube, Daily, Omar Ellis M.D., M.S. ondansetron ODT disintegrating tablet 4 mg (ZOFRAN-ODT), 4 mg, oral, Q6H PRN, Aleida Elmore M.D. [START ON 05/01/2023] polyethylene glycol powder packet 17 g (MIRALAX), 17 g, small bowel tube, Daily, Stacy Wheat PharmJohannaDJohanna, R.Ph. sennosides-docusate sodium 8.6-50 mg per tablet 1 tablet (SENOKOT-S), 1 tablet, small bowel tube, BID, Omar Ellis M.D., M.S. thiamine injection 100 mg (VITAMIN B1), 100 mg, intravenous, Once, Omar Ellis M.D., M.S. Allergies Allergen Reactions Gabapentin Rash Other reaction(s): Diffuse drug eruption reports that he quit smoking about 34 years ago. His smoking use included cigarettes. He has a 22.00 pack-year smoking history. He quit smokeless tobacco use 12 days ago. His smokeless tobacco use included snuff. He reports current alcohol use of about 2.0 standard drinks of alcohol per week. He reports that he does not use drugs. family history includes Alcohol abuse in his son; Breast cancer in his sister; Diabetes in his father and mother; Hypertension in his father; Psoriasis in his mother; Stroke in his father; Thyroid disease in his mother, sister, sister, and sister. ROS A complete 10 system review of systems was completed. Pertinent positive and negative are noted in the HPI above, all other systems were reviewed and were negative. OBJECTIVE Temperature: [36.5 ??C-37 ??C] 36.5 ??C Heart Rate: [54-102] 60 Resp Rate: [11-32] 19 Blood Pressure: (78-130)/(43-68) 112/51 SpO2: [85 %-100 %] 98 % Flow Rate (L/min): [0 L/min-4 L/min] 0 L/min Pulse Rate: [54-86] 60 Physical Exam: HENT Mouth/Throat: Mouth: Mucous membranes are dry. Cardiovascular Rate and Rhythm: Normal rate. Pulmonary Effort: Pulmonary effort is normal. Abdominal Palpations: Abdomen is soft. Comments: Soft, nondistended, nontender. No abdominal scars suggestive of prior surgeries. Skin General: Skin is warm. Capillary Refill: Capillary refill takes less than 2 seconds. Neurological Mental Status: He is alert. LABS: Please see the record for full details Recent Labs 04/30/23 1413 04/30/23 0510 HGB 8.1 L 7.7 L PLT 213 201 WBC 5.4 4.6 Recent Labs 04/30/23 0510 NA 143 CL 111 H BUN 18 CREATININE 1.39 H GLUCOSE 80 IMAGING: Imaging was independently reviewed. CT Abdomen Pelvis with IV Contrast Result Date: 04/29/2023 Impression: 1. 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 Differential includes infection/inflammation, although considered less likely. Endoscopic evaluation and sampling recommended. 2. Indeterminate subcapsular splenic lesion. 3. Bladder wall thickening is somewhat asymmetric. Correlation with prior imaging versus cystoscopy recommended. ASSESSMENT / PLAN #1 Nausea And Vomiting 72-year-old male presented with months of progressive anorexia due to an undiagnosed mass compressing the 3rd part of his duodenum. The patient is not clinically obstructed and does not require acutesurgery at this point. His biopsies and pathology report are still pending. Once a diagnosis is made surgical planning can commence with additional imaging/testing for staging purposes as well as consideration of referral to a surgical oncologist. We are happy to help out when more information is available. Please reach out to [facility]B team with any questions concerns by paging [phone] ([facility]-). Plan and assessment were discussed with Dr. Gutiérrez, who was in agreement. * Zhanna Gutiérrez M.D. - 04/30/2023 5:56 PM CDT Supervisory note I saw and evaluated the patient, participating in the duncan portions of the service. I reviewed the resident/fellow???s note. I agree with the resident/fellow???s findings and plan. Diagnostic and laboratory testing reviewed. PHYSICAL EXAM General: awake, alert, no distress Abdomen: soft, nondistended. Mildly tender in the epigastrium DIAGNOSTICS Recent Results (from the past 24 hour(s)) CBC with Differential, Blood Collection Time: 04/29/23 6:09 PM Result Value Hemoglobin 7.9 (L) Hematocrit 26.5 (L) Erythrocytes 3.30 (L) MCV 80.3 RBC Distrib Width 17.2 (H) Platelet Count 191 Leukocytes 4.4 Neutrophils 2.79 Lymphocytes 0.87 (L) Monocytes 0.42 Eosinophils 0.25 Basophils 0.03 Basic Metabolic Panel Collection Time: 04/29/23 6:09 PM Result Value Potassium, P 3.2 (L) Sodium, P 140 Chloride, P 106 Bicarbonate, P 22 Anion Gap, P 12 BUN (Blood Urea Nitrogen), P 21 Creatinine 1.60 (H) Estimated GFR (eGFR) 45 (L) Calcium, Total, P 7.6 (L) Glucose, P 88 Prothrombin Time (PT) Collection Time: 04/29/23 6:09 PM Result Value Prothrombin Time, P 13.0 (H) INR 1.2 S-TSH (Thyroid-Stimulating Hormone - Sensitive) Collection Time: 04/29/23 6:09 PM Result Value TSH, Sensitive 3.9 Hepatic Function Panel Collection Time: 04/29/23 6:09 PM Result Value Bilirubin, Total, S 0.3 Bilirubin, Direct, S <0.2 Aspartate Aminotransferase (AST), S 32 Alanine Aminotransferase (ALT), S 36 Alkaline Phosphatase, S 188 (H) Albumin, S 3.3 (L) Protein, Total, S 5.4 (L) Lipase Collection Time: 04/29/23 6:09 PM Result Value Lipase, S 22 Lactate, POCT Collection Time: 04/29/23 6:10 PM Result Value Lactate, POCT 1.01 Lactate Collection Time: 04/29/23 9:58 PM Result Value Lactate, P 0.9 CBC with Differential, Blood Collection Time: 04/30/23 5:10 AM Result Value Hemoglobin 7.7 (L) Hematocrit 26.4 (L) Erythrocytes 3.30 (L) MCV 80.0 RBC Distrib Width 17.4 (H) Platelet Count 201 Leukocytes 4.6 Neutrophils 3.09 Lymphocytes 0.71 (L) Monocytes 0.49 Eosinophils 0.29 Basophils 0.04 Comprehensive Metabolic Panel Collection Time: 04/30/23 5:10 AM Result Value Potassium, S 3.9 Sodium, S 143 Chloride, S 111 (H) Bicarbonate, S 19 (L) Anion Gap 13 BUN (Blood Urea Nitrogen), S 18 Creatinine 1.39 (H) Estimated GFR (eGFR) 53 (L) Calcium, Total, S 7.4 (L) Glucose, S 80 Protein, Total, S 4.9 (L) Albumin, S 3.1 (L) Aspartate Aminotransferase (AST), S 29 Alkaline Phosphatase, S 169 (H) Alanine Aminotransferase (ALT), S 31 Bilirubin, Total, S 0.2 Magnesium Collection Time: 04/30/23 5:10 AM Result Value Magnesium, S 1.6 (L) Phosphorus Inorganic Collection Time: 04/30/23 5:10 AM Result Value Phosphorus (Inorganic), S 2.7 Glucose, POCT Collection Time: 04/30/23 7:36 AM Result Value Glucose, POCT, B 78 Site Capillary Last Intake > 4 hours Glucose, POCT Collection Time: 04/30/23 9:26 AM Result Value Glucose, POCT, B 78 Site Capillary Glucose, POCT Collection Time: 04/30/23 11:06 AM Result Value Glucose, POCT, B 84 Site Capillary Glucose, POCT Collection Time: 04/30/23 12:06 PM Result Value Glucose, POCT, B 75 CBC with Differential, Blood Collection Time: 04/30/23 2:13 PM Result Value Hemoglobin 8.1 (L) Hematocrit 27.2 (L) Erythrocytes 3.40 (L) MCV 80.0 RBC Distrib Width 17.7 (H) Platelet Count 213 Leukocytes 5.4 Neutrophils 3.72 Lymphocytes 0.85 (L) Monocytes 0.52 Eosinophils 0.30 Basophils 0.03 Iron and Total Iron-Binding Capacity Collection Time: 04/30/23 2:13 PM Result Value Iron 19 (L) Total Iron Binding Capacity 225 (L) Percent Saturation 8 (L) Ferritin Collection Time: 04/30/23 2:13 PM Result Value Ferritin, S 36 SPSMA Result Collection Time: 04/30/23 2:13 PM Result Value Neutrophilic Segs and Bands 75 Lymphocytes 14 (L) Monocytes 3 Eosinophils 6 (H) Basophils 1 Myelocytes 1 (H) Manual Absolute Neutrophil Count 4.05 Interpretation See Comment Reviewed by: Tech Reticulocytes Collection Time: 04/30/23 2:13 PM Result Value Reticulocytes, B 1.60 Absolute Reticulocyte 54.4 *Note: Due to a large number of results and/or encounters for the requested time period, some results have not been displayed. A complete set of results can be found in Results Review. No results found. ASSESSMENT / PLAN #1 Nausea And Vomiting #2 Duodenal mass high suspicion for malignancy 72-year-old male with ongoing postprandial nausea and vomiting and melena found to have duodenal mass concerning for malignancy. Fortunately the patient is not obstructed. Agree with tissue biopsy and staging workup if this is indeed proves to be a malignancy. Nutrition labs PPI No role for General surgery. Referral to surgical oncologist in the outpatient setting following optimization and appropriate staging. Zhanna Gutiérrez MD Associate Atm Manager Trauma Critical Care General Surgery [facility] Department of Surgery [id number] pager [phone] phone [email or web address] * Maira Singh - 04/30/2023 11:59 AM CDTAssociated Order(s): IP CONSULT TO DIETITIAN Clinical Nutrition: Initial Assessment Clinical Nutrition was requested to evaluate patient for assessment of nutritional status, tube feeding order consult, and tube feeding recommendations/management SUBJECTIVE Mr. Lau is a 72 y.o. male admitted for evaluation of abdominal pain, nausea/vomiting and inability to tolerate PO diet, in the setting of duodenal mass/wall thickening concerning for malignancy. PMH: thyroid cancer on monoclonal antibodies, postsurgical hypothyroidism, type 2 diabetes, CKD stage 2, gout, hypertension, and hyperlipidemia Completed visit with family (friend who lives with patient and will help with tube feeding administration) today as part of face to face care. Current Nutrition (since admission): Unable to meet with patient this afternoon as he was down at aprocedure and getting an NJ tube placed, met with his friend and talked about the different components of home tube feeding needs. Patient has been NPO or on a clear liquid diet since admission on 04/29. Per talking with friend patient has no request for a certain [employer]. Per talking with provid er the need for enteral nutrition will be 2-4 weeks depending on tissue diagnosis. GI Tubes (Adults) Nasojejunal 12 Fr Nare;Left (Active) Placement Date/Time: 04/30/23 1048 Placed by External Staff?: Other (Comment) Placed by: AL6 GI GI Tube Type: Nasojejunal GI Tube Size: 12 Fr Length (cm): 125 cm Tube Location: Nare;Left Connector Type: Small bore (ENFit??) Nutrition history: The past few weeks unable to tolerate much oral intake due to nausea and vomiting. Poor intake has gone on for a few months. Food Allergies: [facility] Nutrition education/counseling: Saw a dietitian at [facility] when he was hospitalized there a few weeks ago OBJECTIVE Current nutrition orders: Dietary Orders (From admission, onward) Start Ordered 04/30/23 0000 No oral nutrition, no tube feeding Diet effective midnight 04/29/23 2226 Medications Scheduled Meds:[Held by provider] allopurinoL, 300 mg, oral, Daily [Held by provider] aspirin, 325 mg, oral, BID atorvastatin, 20 mg, oral, Daily at bedtime [START ON 05/01/2023] enoxaparin, 40 mg, subcutaneous, Daily insulin aspart, 0-13 Units, subcutaneous, TID insulin aspart, 0-5 Units, subcutaneous, Once [Held by provider] labetaloL, 150 mg, oral, BID levothyroxine, 112 mcg, oral, Once per day on Sat [START ON 05/01/2023] levothyroxine, 224 mcg, oral, Once per day on Sat [Held by provider] lisinopril-hydroCHLOROthiazide, 1 tablet, oral, Daily magnesium sulfate, 2 g, intravenous, Once pantoprazole, 40 mg, oral, BID before breakfast and dinner polyethylene glycol, 17 g, oral, Daily sennosides-docusate sodium, 1 tablet, oral, BID Continuous Infusions: PRN Meds:. acetaminophen dextrose 40 % dextrose dextrose fentaNYL (PF) glucagon glucagon glucose haloperidol lactate insulin aspart ondansetron Pertinent Labs: Last 3 results Lab Units 04/30/23 0510 04/29/23 1809 04/29/23 1719 SODIUM P mmol/L -- 140 -- SODIUM mmol/L 143 -- -- POTASSIUM mmol/L 3.9 -- -- POTASSIUM P mmol/L -- 3.2* -- CHLORIDE P mmol/L -- 106 -- CHLORIDE mmol/L 111* -- -- BUN P mg/dL -- 21 -- BUN mg/dL 18 -- -- CREATININE mg/dL 1.39* 1.60* -- POC CREATININE mg/dL -- -- 1.7* PHOSPHORUS INORGANIC mg/dL 2.7 -- -- CALCIUM P mg/dL -- 7.6* -- CALCIUM mg/dL 7.4* -- -- MAGNESIUM mg/dL 1.6* -- -- Net IO Since Admission: 1,752.11 mL [04/30/23 1209] LBM: 04/29 Anthropometrics: Height: 175.3 cm Admission Weight: 87.3 kg (04/29/2023) Current Weight: 87.1 kg BMI (Calculated): 28.3 kg/m?? Weight change since admission: -0.2 kg Weight Change History: per report 17% loss in about 4-5 months Wt Readings from Last 4 Encounters: 04/30/23 87.1 kg 01/15/23 92.3 kg 11/09/22 94.4 kg 01/10/22 95.1 kg Estimated Needs: Total Calorie Needs: 5073-4023 calories/day Method to Estimate Energy Needs: kcal/kg (25-30 kcal/kg) Weight Used for Equation Calculations: 87.1 kg Total Protein Needs: 85 - 106 grams/day (Method to Estimate Protein Needs (g/kg): 1.2 - 1.5 gm/kg) Weight Used to Calculate Protein Needs (Kg): 70.7 kg Nutrition Diagnosis: Inadequate oral intake related to current illness as evidenced by need for enteral nutrition through NJ tube Malnutrition Criteria: Average estimated Intake: Less than or equal to 75% for 1 or more months Weight Loss: >10% in 6 months (17% in 4-5 months) Body Fat: Unable to Assess (patient was unavailable) Muscle Mass: Unable to Assess (patient was unavailable) Nutritional Status: Severe Malnutrition Malnutrition in the Context of: Chronic Illness ASSESSMENT / PLAN Nutrition Status: Severe Malnutrition (04/30/2023 11:52 AM) See Nutrition Focused Physical Findings section for details. Nutrition Intervention: Interventions: Enteral nutrition, Provide education to increase nutrition knowledge, Discharge and transfer of nutrition care, Collaboration and referral of nutrition care. HEN will be consulted Recommendations: Once tube tip location is confirmed and it's medically appropriate start enteral nutrition: Nutren 1.5 with standard initiation and advancement to goal rate of 65 mL/hour for 24 hours/day. Water flushes: 120 mL flushes 6-7 times per day Enteral nutrition as recommended will provide 2250 total calories and 102 grams of protein and meets 100% of the Reference Daily Intake of vitamins and minerals per day. Home-going regimen titration to night time feeds 6 cartons of Nutren 1.5 Step 1: 65 mL/hr for 24 hours Step 2: 85 mL/hr for 18 hours Step 3: 105 mL/hr for 15 hours Step 4: 125 mL/hr for 12 hours Closely monitor serum potassium, phosphorus and magnesium due to refeeding risk and replace accordingly. Consider providing 100 mg IV thiamine for concerns of refeeding Monitoring/Evaluation: Nutrition parameter to monitor: Weight Status, Pertinent Labs, Enteral, Nausea/Vomiting/Diarrhea Desired Outcome: Optimize nutrition status Patient Goal(s): 1. Tolerate tube feedings at goal rate 2. Increase oral intake when medically appropriate Clinical Nutrition will continue to follow. For questions about patient's nutritional care please contact pager [phone] on weekdays 07:30-16:00 or [phone] on weekends/holidays. * Ryann Mackey R.N. - 04/30/2023 9:57 AM CDT Discharge Planning Assessment SUBJECTIVE Assessment Information Referral Source: Early Screen for Discharge Planning Referral Reason: Discharge Planning Primary Language: Bahamian Loan Servicing Specialist Services Used: No Person(s) present during interview: Person(s) Present During Interview: patient History of Present Illness #1 Nausea And Vomiting Social History Support System: significant other Primary Caregiver: self Caregiver Information: Caregiver Name: Rhona Shepard Caregiver Relationship: Partner Finance/Insurance Primary insurance: MEDICARE A AND B Secondary insurance: [employer] Does the patient have any financial concerns? no benefits: No Advance Directives Legal Decision Maker: Self Advance Directives: Advanced Care Plan Advance Directives Status: Activated OBJECTIVE Baseline Functional Status Baseline Activities of Daily Living Mobility: Independent, Requires aide of device Dressing: Independent Feeding: Independent Bathing: Independent Grooming: Independent Toileting: Independent Behavior: Appropriate Communication: Can write, Talks, Understands speaking, Understands Bahamian Shopping: Independent Transportation: Independent to drive Medication Management: Independent Housekeeping: Independent Meal Prep: Independent Managing Finances: Independent Assistive Devices: BiPAP/CPAP/VPAP, Cane, Walker - four wheeled Baseline Services/Resources Primary care clinic and provider: ELSEWHERE, PCP Additional Resources: None at this time Anticipated Needs Functional Status: Tasks appropriate to patient's age/development Assistive Devices: None Anticipated Modifications to the Patient's Home: None, Patient reports no anticipated modificationsneeded to the home Transportation Needs: Support from family, Independent to drive Does the patient need discharge transport arranged?: No Ride and Caregiver Arranged: No Anticipated Discharge Destination: Home or Self Care ASSESSMENT / PLAN Assessment: The bindery machine setter met with Hola Lau to discuss his current hospitalization and home going needs. The patient was unaccompanied. The patient was a reliable historian. The role of bindery machine setter was reviewed. The patient reviewed his prior level of care and support system. The patient receives support from his significant other. Hola Lau lives in a single level home with zero entry. He ambulates with a cane and usesa walker when feeling weak. Patient states he has a walk in shower with grab bars. Housekeeping, grocery shopping, meal prep, and other household responsibilities have previously been completed by patient and patient's significant other. Patient states he gets together often with his neighbors and they are an active group. bindery machine setter discussed the patient's potential needs at dismissal based on their home setting, previous needs and responsibilities, homebound status, and relevant assessments with the patient. Thepatient will be safe and supported to return home with spouse/S.O. when medically ready. Support will be provided by patient's partner. The patient demonstrated understanding when discussing his homegoing plans and anticipated needs. At this time, the care team has not identified any skilled post-hospital discharge care needs that require the assistance of the Care Management Team. After reviewing the patient's chart and meeting with the patient, the bindery machine setter deemed the LACE+/readmission questions were not necessary. The patient reports understanding that he will dismiss from the hospital when medically stable. Pending hospital course and medical readiness, no barriers to dismissal have been identified at this time. Plan: The patient agrees with the following plan. Patient's anticipated discharge disposition is: Home to Self Care Transportation upon dismissal will be provided by family--Rhona (partner) . bindery machine setter recommended nothing at this time. bindery machine setter provided information regarding the dismissal process. bindery machine setter placed or requested the following hospital-based consult orders and/or referrals: None. bindery machine setter will continue to assess for homegoing needs with the interdisciplinary team. bindery machine setter encouraged the patient to reach out with any questions/concerns. Signed by: Ryann Mackey R.N. 04/30/2023 documented in this encounter Nursing Notes * Delfina Wayne R.N. - 05/07/2023 7:06 PM CDT Vitals signs stable, PIV removed. AVS and enteral tube feeding and administration provided to patient and family. All questions answered, patient left unit at 1900. * Jaylon Srinivasan R.N. - 04/30/2023 2:10 PM CDT Shift Goals: Identify possible barriers to meeting goals/advancing plan of care: Enteral Feeding End of Shift Summary: No new complaints. NJ tube in placed. Pending enteral feeding orders. BMAT 3, SBA with a walker. Denies pain. Denies nausea. On clear liquid diet. Continue to monitor. documented in this encounter ED Notes * Ct Hassan M.D., M.S. - 04/29/2023 5:34 PM CDT SUBJECTIVE CHIEF COMPLAINT/REASON FOR VISIT Nausea and Vomiting HISTORY OF PRESENT ILLNESS See marketing sales consultant/scribe note for HPI. REVIEW OF SYSTEMS See marketing sales consultant/scribe note for ROS. OBJECTIVE Initial Vitals Temp -- Pulse Rate 04/29/23 1638 64 Heart Rate 04/29/23 1645 68 Resp Rate 04/29/23 1638 15 Blood Pressure 04/29/23 1638 (!) 79/56 SpO2 04/29/23 1638 97 % Pain Score 04/29/23 1656 0 - No pain PHYSICAL EXAMINATION Constitutional: Nursing note and vitals reviewed. No distress. HENT: Head: Normocephalic and atraumatic. Mouth/Throat: Mucous membranes are dry. Eyes: Conjunctivae and EOM are normal. Cardiovascular: Normal rate and regular rhythm. Pulses are palpable. Murmur heard.Capillary refill: takes 3-5 seconds Pulmonary/Chest: Effort normal and breath sounds normal. There is normal air entry. No tachypnea. No respiratory distress. Abdominal: Soft. Bowel sounds are normal. exhibits no mass. There is abdominal tenderness. There isguarding. Musculoskeletal: Cervical back: Normal range of motion. Neurological: Alert. Skin: Skin is warm and dry. He is not diaphoretic. Psychiatric: He has a normal mood and affect. ASSESSMENT/PLAN Assessment and Plan Hola Lau is a 72 y.o. male who presented with Nausea and vomiting. This was considered in the context of past medical history as noted in the HPI. On initial evaluation patient was found alert and responsive and was noted to be speaking in full sentences. Triage vital signs were reviewed and notable for hypotension. Nursing documentation was reviewed and considered. Initial symptom management: IVFs Differential diagnosis includes but is not limited to SBO, mesenteric adenitis/ischemia, nephrolithiasis, UTI, cystitis, appendicitis, cholecystitis, pancreatitis, diverticulitis, AAA, malignancy. Work-up: Labs, CT abdomen/pelvis Pt was seen just prior to shift change. His care was transferred to [facility] ED team pending lab and imaging results and disposition. Pt will likely require admission for further management. At time of transfer of care, pt was hypotensive but receiving IVF's and is fluid responsive. . PROBLEMS ADDRESSED THIS VISIT Nausea, vomiting, abdominal pain. I reviewed the following external records: outside ED records. Final Diagnoses: as of 05/02/23[address] Hassan M.D., M.S. Resident 05/03/23317 * Omar Gerebr M.D. - 04/29/2023 5:26 PM CDT VITAL SIGNS BP 111/62 Pulse 73 Resp 20 Wt 87.3 kg SpO2 100% BMI 29.24 kg/m?? Final Diagnoses: as of 04/29/232141 Nausea And Vomiting 72-year-old male from [facility]. History somewhat piecemeal secondary to multiple admissions elsewhere. Apparently he has been feeling unwell since the beginning of April. He has 2 visitsto [facility] in some point he was transferred to [facility] with sepsis. At that time it was felt to be from abdominal source but this is not completely clear. Workup there is somewhat incomplete an unremarkable but I can see that he underwent an EGD on the 24 of April that isconcerning for malignancy. He was dismissed with some sort of follow-up. He presented earlier to our emergency department with continued symptoms. He has nausea vomiting and abdominal pain. He was transiently hypotensive in the waiting room but not hypotensive while in the acute treatment room. The workup was started by the morning team. At this point abdominal CT and broad laboratory workup is pending. My suspicion is the CT will show images concerning for malignancy. Will hydrate him here will startantibiotics as necessary. I anticipate he will require admission to hospital. This gentleman obviously is not thriving as an outpatient setting having multiple admissions and consults in the emergency department. Probably have some underlying malignancy leading to possible some cholangitis type picture. Omar Gerber M.D. 04/29/232141 * Manan Gar R.N. - 04/29/2023 4:51 PM CDT Presents to ED for dizziness and hypotensive spells. Patient was at [facility] earlier in the week where a mass was found in his intestines. Endorses inability to keep food down. VSS on assessment, able toambulate to bed from chair with SBA. No chest pain, shortness of breathe, or blood in urine/stool. Manan Gar R.N. 04/29/23 3495 * Aaliyah Cleaning M.D., M.S. - 04/29/2023 4:42 PM CDT SUBJECTIVE CHIEF COMPLAINT/REASON FOR VISIT Nausea and Vomiting HISTORY OF PRESENT ILLNESS Hola Lau is a 72 y.o. male with a history of thyroid cancer on monoclonal antibodies, hypothyroidism, DM2, stage 2 CKD who presents to the [facility] ED for evaluation of abdominal pain, vomiting, and dizziness. The patient reports that over this past week, he had developed an abdominal pain, constant dizziness, and vomiting after eating. He does have a chronic history of abdominal pain and intermittent dizziness, but it has been worse since this past week. For his vomiting, he mentions that he can eat, but after 3-4 hours, he would vomit. He was seen at the [facility] ED, where they thought he had a gallbladder issue, and referred him to [facility] in the [facility] for further care on 04/23/23. At [facility], he received EGD which showed a duodenal necrotizing ulcer without overt signs of malignancyand they incidentally found that he had a low hemoglobin in the 8-9 range. He was discharged on 04/27/23 and then seen this morning in the clinic at [facility] for follow up. He was found to have a blood pressure of 78/39 at [facility], and subsequently transferred here to the [facility] ED. The patient also endorses that he initially had a dark stools when his abdominal pains began one week ago, which has progressively lightened up to a mucousy diarrhea by yesterday. He also has not eaten properly in the past 5 days. He denies blood in his vomits and is not constipated. He has never had a known GI bleed before and denies any past abdominal surgeries. History provided by: Patient, significant other and medical records REVIEW OF SYSTEMS Gastrointestinal: Positive for abdominal pain, blood in stool, diarrhea, nausea and vomiting. Negative for hematemesis. Neurological: Positive for dizziness. OBJECTIVE Initial Vitals Temperature 04/29/231999 36.7 ??C Pulse Rate 04/29/23 1638 64 Heart Rate 04/29/23 1645 68 Resp Rate 04/29/23 1638 15 Blood Pressure 04/29/23 1638 (!) 79/56 SpO2 04/29/23 1638 97 % Pain Score 04/29/23 1656 0 - No pain PHYSICAL EXAMINATION Constitutional: Nursing note and vitals reviewed. He is cooperative. HENT: Head: Atraumatic. Eyes: Conjunctivae and EOM are normal. Neck: No tracheal deviation present. Cardiovascular: Normal rate and regular rhythm. Murmur (2/6) heard. Pulmonary/Chest: Effort normal and breath sounds normal. No respiratory distress. Abdominal: Soft. exhibits no distension. There is abdominal tenderness (diffuse). There is guarding. There is no rebound. Musculoskeletal: General: No deformity. Cervical back: Normal range of motion. Neurological: Alert and oriented to person, place, and time. Skin: Skin is warm and normal color. Psychiatric: He has a normal mood and affect. Behavior is normal. ASSESSMENT/PLAN Assessment and Plan This is a 72-year-old male who is referred here to the ED from the [facility] clinic primarily for hypotension in the midst of abdominal pain, dizziness, and vomiting. On arrival, he was hypotensive (79/56) but nontoxic in appearance. We quickly examined him, and he does have diffuse tenderness in the abdomen. BP has improved to 110 systolic and he is mentating well at this time. Ddx is broad and includes appendicitis, cholecystitis, pancreatitis, diverticulitis, bowel obstruction/perforation, mesenteric ischemia, kidney stone, AAA, malignancy, GI bleed, among others. We will obtain labs and abdominal CT. . I reviewed the following external records: office records, outside ED records and inpatient records. ED Course as of 05/02/23 1558 SatApr 29, 2023 1738 Care transitioned to the oncoming physician at shift change. Pending at the time of transitionof care are lab and imaging results. Final disposition pending test results and ED course. Final Diagnoses: as of 05/02/23 1558 Nausea And Vomiting Care Handoff Row Name 04/29/23 1950 Care Handoff Type of Handoff Admission handoff I have personally seen and examined this patient. I have fully participated in the care of this patient. I have reviewed all clinical information including history, physical exam, orders, and plan. Iagree with the note of the resident. I personally performed the services described in this documentation, as scribed in my presence, andit is both accurate and complete. Aaliyah Cleaning M.D., M.S. 05/02/23 1558 documented in this encounter Miscellaneous Notes * Hospital Course - Kenia Bhandari M.D. - 04/29/2023 11:37 PM CDT HISTORY OF PRESENT ILLNESS Mr. Hola Lau is a 72 y.o. male with medical comorbidities including thyroid cancer s/p resection, postsurgical hypothyroidism, type 2 diabetes, CKD stage 2, gout, psoriasis, hypertension, and hyperlipidemia who presented to the ED on 04/29 for evaluation of abdominal pain, vomiting, and dizziness in the setting of likely malignancy. Prior to admission: The patient reports an approximate 2 to three-week history of feeling unwell. This initially started with decreased appetite and abdominal pain. This then progressed to nausea and vomiting after mostmeals. He was initially still able to eat, but would then experience postprandial nausea and vomiting about 3-4 hours after eating. He also experienced dark stools when his abdominal pain initially began, which progressively lightened to a mucousy diarrhea over the past day. Given his ongoing symptoms, he was initially seen in the [facility] on 04/22 where he was noted to have a thickened gallbladder wall to 0.7 cm on imaging, was febrile to 102?? F,and hypotensive to 90s/50s. He was given vancomycin and Zosyn, initiated on pressors and [facility] due to concern for sepsis secondary to presumed cholecystitis. Upon his arrival to [place], he was stable and weaned off pressors. He did have mildly elevated liver tests with a normal bilirubin, alk-phos of 226, ALT of 65, AST of 85. CT of the abdomen and pelvis showed a nonobstructive masslike thickening of the duodenum, predominantly involving the 3rd partof the duodenum with a mildly dilated common bile duct and distended gallbladder, however bedside ultrasound did not show any overt evidence of cholecystitis. During his hospital stay, workup for infection was relatively unremarkable. Hypotension resolved with fluids. He did have 2 more febrile episodes during his admission, so was continued on Zosyn. He was found to have a newly low hemoglobin in the 8- 9 range as well as an ROMEO that improved with fluids. He underwent EGD on 04/24 which showed duodenal necrotizing ulcer. Biopsy was performed, which was read as a necroinflammatory ulcer with duodenal mucosa, acute and chronic inflammation without evidence of active malignancy. However, therewas concern for ongoing malignancy. He was initiated on PPI. Antibiotics were stopped on 04/25 due to no clear source of infection, negative blood cultures, normal white blood cell count, and resolved fevers. He was discharged on 04/27. Since his discharge, the patient reports that he has not been able to eat or drink much of anythingover the past 5 days. He has been able to drink some liquids, but we will still occasionally experience vomiting with this. He is now having clear watery type stools without noticeable melena. He hadan outpatient follow-up appointment this morning at the [facility]. During this appointment,he was found to be hypotensive with a blood pressure of 78/39, and was subsequently recommended to go to the [facility] ED for further workup. [facility] ED: In the ED, the patient was initially hypotensive with a blood pressure 79/56, which then spontaneously corrected to 111/62 about 5 minutes later. He was otherwise hemodynamically stable. Laboratory workup was notable for hemoglobin of 7.9, normal platelets and white blood cell count, INR 1.2. CMP was notable for potassium of 3.2, BUN 21, creatinine 1.6, bilirubin 0.3, ALT 36, AST 32, moderately elevated alk-phos of 188, an albumin of 3.3. Lipase and lactate were normal. TSH was normal at 3.9. Blood cultures were drawn. 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 He was given 2 L ofnormal saline in the emergency department. Given concern for failure to thrive at home, he was admitted to the [facility] GI B service for evaluation and management. GI B Course: On arrival to the floor, the patient was hemodynamically stable and afebrile. Endorse history of poor PO intake due to post-prandial N/V. Went for EGD w/ extended push enteroscopy which identified large circumferential infiltrative and ulcerated mass with no bleeding in the third portion of duodenum. Biopsies were obtained and sent for histopathology review. Endoscopic NJT was placed at that time. The patient was started on enteral nutrition via NJT and tolerated feeds up to 50 mL/hr. His NJ tube then discharged on 05/05 after a sneezing fit and was replaced on 05/06 with a bridal loop. The patient was then restarted on tube feeds and tolerated feeds up to his goal of 65 mL/hr with improved nausea. Home enteral nutrition was consulted and helped to organize home supply of enteral feeding supplies, which have been delivered to the patient's hospital room and home. We monitored for refeeding syndrome, and repleted electrolytes as needed. Nutrition team has been informed about the patient's discharge plans. Pathology for duodenal mass resulted as highly suspicious for a B-cell lymphoma but definite diagnosis not possible due to marked crush artifact and degenerative changes. The patient was updated on these results. The patient has been provided Hematology consultation for further management on 05/09. Patient was discharged home in stable condition on 05/07/23 with plan for enteral nutrition. PCP follow up for further evaluation of his symptoms, tube feeds, and refeeding labs to be arranged. documented in this encounter Plan of Treatment Upcoming Encounters Date Type Department Care Team (Latest Contact Info) Description 10/06/2023 9:04 AM CHILDCARE DIRECTOR - 10/06/2023 11:24 AM CHILDCARE DIRECTOR Surgery RST ROMB MAIN OR [address] [place] [phone] Cameron aSenz M.D. [address] [place] [phone] ABDOMINAL EXPLORATION, REMOVAL ABTHERA, POSSBLE BOWEL RESECTION, PROCEED INDICATED 10/11/2023 7:00 AM CHILDCARE DIRECTOR Appointment Department of Laboratory Medicine and Pathology, [facility], in [address] [phone] Arti Epstein M.B.B.S. [address] [place] [phone] 10/11/2023 9:00 AM CHILDCARE DIRECTOR Office Visit Division of Hematology in [address] [phone] Arti Epstein M.B.B.S. [address] [place] [phone] 10/11/2023 10:00 AM CHILDCARE DIRECTOR Infusion Department of Oncology in [address] [phone] Bev Gifford APRN, C.N.P., M.S.N. [address] [place] [phone] 11/19/2023 10:00 AM CDT Office Visit Division of Endocrinology in [place], [place] [address] [place] [phone] West Mendoza APRN, C.NJohannaP., M.S. [address] [place] [phone] 11/19/2023 2:30 PM CDT Comprehensive Visit Division of Hepatobiliary and Pancreas Surgery in [place], [place] [address] [place] [phone] Wesley Hamilton M.D. [address] [place] [phone] Scheduled Procedures Name Priority Associated Diagnoses Date/Ti me LAPAROTOMY - ABDOMINAL WASHOUT Ischemia Intestinal With Stricture (HCC) 10/06/2023 9:04 AM CHILDCARE DIRECTOR documented as of this encounter Procedures Procedure Name Priority Date/Time Associated Diagnosis Comments GLUCOSE POCT, B Routine 05/07/2023 12:50 PM CDT GLUCOSE POCT, B Routine 05/07/2023 8:27 AM CDT CBC WITH DIFFERENTIAL, B Routine 05/07/2023 4:38 AM CDT PHOSPHORUS (INORGANIC), S Routine 05/07/2023 4:38 AM CDT MAGNESIUM, S Routine 05/07/2023 4:38 AM CDT BASIC METABOLIC PANEL, S/P Routine 05/07/2023 4:38 AM CDT GLUCOSE POCT, B Routine 05/06/2023 9:55 PM CDT DX ABDOMEN PORTABLE ANTERIOR POSTERIOR 1 VIEW RAD - Routine (most inpatients and all outpatients) 05/06/2023 5:18 PM CDT GLUCOSE POCT, B Routine 05/06/2023 4:49 PM CDT GLUCOSE POCT, B Routine 05/06/2023 2:58 PM CDT ADULT OXYGEN THERAPY Routine 05/06/2023 1:55 PM CDT ADULT OXYGEN THERAPY Routine 05/06/2023 1:55 PM CDT FL FLUORO LESS THAN 1 HOUR RAD - Routine (most inpatients and all outpatients) 05/06/2023 1:42 PM CDT UPPER GI ENDOSCOPY Routine 05/06/2023 12 :37 PM CDT EGD (ESOPHAGEALGASTRODUO DENOSCOPY) Routine 05/06/2023 12:37 PM CDT GLUCOSE POCT, B Routine 05/06/2023 12:37 PM CDT GLUCOSE POCT, B Routine 05/06/2023 10:51 AM CDT HIV-1/HIV-2 AB RAPID PT SOURCE, B Routine 05/06/2023 9:32 AM CDT BBF SOURCE PROFILE RAPID Routine 05/06/2023 9:32 AM CDT GLUCOSE POCT, B Routine 05/06/2023 8:33 AM CDT ADULT OXYGEN THERAPY Routine 05/06/2023 8:01 AM CDT CBC WITH DIFFERENTIAL, B Routine 05/06/2023 5:23 AM CDT PHOSPHORUS (INORGANIC), S Routine 05/06/2023 5:23 AM CDT MAGNESIUM, S Routine 05/06/2023 5:23 AM CDT BASIC METABOLIC PANEL, S/P Routine 05/06/2023 5:23 AM CDT ADULT OXYGEN THERAPY Routine 05/05/2023 8:00 PM CDT GLUCOSE POCT, B Routine 05/05/2023 4:58 PM CDT GLUCOSE POCT, B Routine 05/05/2023 12:05 PM CDT GLUCOSE POCT, B Routine 05/05/2023 9:13 AM CDT ADULT OXYGEN THERAPY Routine 05/05/2023 8:00 AM CDT CBC WITH DIFFERENTIAL, B Routine 05/05/2023 4:47 AM CDT PHOSPHORUS (INORGANIC), S Routine 05/05/2023 4:47 AM CDT MAGNESIUM, S Routine 05/05/2023 4:47 AM CDT BASIC METABOLIC PANEL, S/P Routine 05/05/2023 4:47 AM CDT GLUCOSE POCT, B Routine 05/04/2023 11:30 PM CDT ADULT OXYGEN THERAPY Routine 05/04/2023 8:00 PM CDT GLUCOSE POCT, B Routine 05/04/2023 5:31 PM CDT GLUCOSE POCT, B Routine 05/04/2023 12:06 PM CDT CBC WITH DIFFERENTIAL, B Routine 05/04/2023 8:55 AM CDT PHOSPHORUS (INORGANIC), S Routine 05/04/2023 8:55 AM CDT MAGNESIUM, S Routine 05/04/2023 8:55 AM CDT BASIC METABOLIC PANEL, S/P Routine 05/04/2023 8:55 AM CDT GLUCOSE POCT, B Routine 05/04/2023 8:47 AM CDT ADULT OXYGEN THERAPY Routine 05/04/2023 8:01 AM CDT GLUCOSE POCT, B Routine 05/03/2023 9:55 PM CDT ADULT OXYGEN THERAPY Routine 05/03/2023 8:00 PM CDT GLUCOSE POCT, B Routine 05/03/2023 5:29 PM CDT DX ABDOMEN 1 VIEW RAD - Routine (most inpatients and all outpatients) 05/03/2023 2:55 PM CDT GLUCOSE POCT, B Routine 05/03/2023 11:40 AM CDT GLUCOSE POCT, B Routine 05/03/2023 8:21 AM CDT ADULT OXYGEN THERAPY Routine 05/03/2023 8:00 AM CDT CBC WITH DIFFERENTIAL, B Routine 05/03/2023 4:41 AM CDT PHOSPHORUS (INORGANIC), S Routine 05/03/2023 4:41 AM CDT MAGNESIUM, S Routine 05/03/2023 4:41 AM CDT BASIC METABOLIC PANEL, S/P Routine 05/03/2023 4:41 AM CDT GLUCOSE POCT, B Routine 05/02/2023 9:19 PM CDT ADULT OXYGEN THERAPY Routine 05/02/2023 8:00 PM CDT GLUCOSE POCT, B Routine 05/02/2023 4:35 PM CDT FL GI TUBE INJECTION RAD - Routine (most inpatients and all outpatients) 05/02/2023 12:39 PM CDT GLUCOSE POCT, B Routine 05/02/2023 11:18 AM CDT ADULT OXYGEN THERAPY Routine 05/02/2023 8:01 AM CDT GLUCOSE POCT, B Routine 05/02/2023 7:47 AM CDT CBC WITH DIFFERENTIAL, B Routine 05/02/2023 4:43 AM CDT PHOSPHORUS (INORGANIC), S Routine 05/02/2023 4:43 AM CDT MAGNESIUM, S Routine 05/02/2023 4:43 AM CDT BASIC METABOLIC PANEL, S/P Routine 05/02/2023 4:43 AM CDT DX ABDOMEN PORTABLE ANTERIOR POSTERIOR 1 VIEW RAD - Routine (most inpatients and all outpatients) 05/01/2023 8:35 PM CDT ADULT OXYGEN THERAPY Routine 05/01/2023 8:01 PM CDT GLUCOSE POCT, B Routine 05/01/2023 4:00 PM CDT GLUCOSE POCT, B Routine 05/01/2023 11:22 AM CDT GLUCOSE POCT, B Routine 05/01/2023 9:09 AM CDT ADULT OXYGEN THERAPY Routine 05/01/2023 8:01 AM CDT CBC WITH DIFFERENTIAL, B Routine 05/01/2023 4:49 AM CDT PHOSPHORUS (INORGANIC), S Routine 05/01/2023 4:49 AM CDT MAGNESIUM, S Routine 05/01/2023 4:49 AM CDT COMPREHENSIVE METABOLIC PANEL, S/P Routine 05/01/2023 4:49 AM CDT GLUCOSE POCT, B Routine 04/30/2023 8:23 PM CDT ADULT OXYGEN THERAPY Routine 04/30/2023 8:01 PM CDT GLUCOSE POCT, B Routine 04/30/2023 5:47 PM CDT SPSMA RESULT Timed 04/30/2023 2:13 PM CDT IRON AND TOT IRON-BINDING CAPACITY, S/P Timed 04/30/2023 2:13 PM CDT RETICULOCYTES, B Timed 04/30/2023 2:13 PM CDT CBC WITH DIFFERENTIAL, B Timed 04/30/2023 2:13 PM CDT FERRITIN, S Timed 04/30/2023 2:13 PM CDT VITAMIN B12 ASSAY, S Timed 04/30/2023 2:13 PM CDT GLUCOSE POCT, B Routine 04/30/2023 12:06 PM CDT GLUCOSE POCT, B Routine 04/30/2023 11:06 AM CDT FL FLUORO LESS THAN 1 HOUR RAD - Routine (most inpatients and all outpatients) 04/30/2023 10:57 AM CDT SURGICAL PATHOLOGY Routine 04/30/2023 10 :25 AM CDT GLUCOSE POCT, B Routine 04/30/2023 9:26 AM CDT EGD - EXTENDED UGI ENDOSCOPY EXAM/PUSH ENTEROSCOPY Routine 04/30/2023 9:17 AM CDT SMALL BOWEL ENTEROSCOPY Routine 04/30/2023 9:17 AM CDT ADULT OXYGEN THERAPY Routine 04/30/2023 8:01 AM CDT GLUCOSE POCT, B Routine 04/30/2023 7:36 AM CDT CBC WITH DIFFERENTIAL, B Routine 04/30/2023 5:10 AM CDT PHOSPHORUS (INORGANIC), S Routine 04/30/2023 5:10 AM CDT MAGNESIUM, S Routine 04/30/2023 5:10 AM CDT COMPREHENSIVE METABOLIC PANEL, S/P Routine 04/30/2023 5:10 AM CDT ADULT OXYGEN THERAPY Routine 04/29/2023 10:26 PM CDT ADULT OXYGEN THERAPY Routine 04/29/2023 10:26 PM CDT ADULT OXYGEN THERAPY Routine 04/29/2023 10:26 PM CDT LACTATE, B/P Timed 04/29/2023 9:58 PM CDT LACTATE, POCT, B STAT 04/29/2023 6:10 PM CDT HEPATIC FUNCTION PANEL, S STAT 04/29/2023 6:09 PM CDT BACTERIA / JOEL CULTURE, BLOOD STAT 04/29/2023 6:09 PM CDT BACTERIA / JOEL CULTURE, BLOOD STAT 04/29/2023 6:09 PM CDT PROTHROMBIN TIME (PT), P STAT 04/29/2023 6:09 PM CDT CBC WITH DIFFERENTIAL, B STAT 04/29/2023 6:09 PM CDT THYROID-STIMULATING HORMONE-SENSITIVE (S-TSH) STAT 04/29/2023 6:09 PM CDT LIPASE, S/P STAT 04/29/2023 6:09 PM CDT BASIC METABOLIC PANEL, S/P STAT 04/29/2023 6:[address] ABDOMEN PELVIS WITH IV CONTRAST RAD - Semiurgent (Fast; most ED patients; some inpatients) 04/29/2023 5:28 PM CDT CREATININE, POCT, B Routine 04/29/2023 5 :19 PM CDT CREATININE, POCT, B Routine 04/29/2023 5 :19 PM CDT documented in this encounter Results * Glucose, POCT (05/07/2023 12:50 PM CDT) Glucose, POCT, B 119 70 - 140 mg/dL 05/07/2023 1:05 PM CDT PCLX Site Capillary 05/07/2023 1:05 PM CDT PCLX Last Intake ContTubFdg 05/07/2023 1:05 PM CDT PCLX Blood 05/07/2023 12:5 0 PM CDT 05/07/2023 1:06 PM CDT Unknown Provider LAB POCT ORDERABLES- MANUAL Performing Organization Address City/[facility]/ZIP Co de Phone Number POC [facility] [address] [place] [address], [facility] PCLX [facility] POC [address] [place] [address] * (ABNORMAL) Glucose, POCT (05/07/2023 8:27 AM CDT) Glucose, POCT, B 180(H) 70 - 140 mg/dL 05/07/2023 8:58 AM CDT PCLX Site Capillary 05/07/2023 8:58 AM CDT PCLX Last Intake ContTubFdg 05/07/2023 8:58 AM CDT PCLX Blood 05/07/2023 8:27 AM CDT 05/07/2023 8:59 AM CDT Unknown Provider LAB POCT ORDERABLES- MANUAL Performing Organization Address City/[facility]/ZIP Co de Phone Number POC [facility] [address] [place] [address], [place] PCLX [facility] POC [address] [place] [address] * Phosphorus Inorganic (05/07/2023 4:38 AM CDT) Phosphorus (Inorganic), S 3.3 2.5 - 4.5 mg/dL 05/07/2023 5:49 AM CDT DTL Blood (Blood, Venous) 05/07/2023 4:38 AM CDT 05/07/2023 5:31 AM CDT Kenia Bhandari M.D. LAB BLOOD ADD-ON Performing Organization Address City/[facility]/[place] [address] * (ABNORMAL) Magnesium (05/07/2023 4:38 AM CDT) Magnesium, S 1.5(L) 1.7 - 2.3 mg/dL 05/07/2023 5:49 AM CDT DTL Blood (Blood, Venous) 05/07/2023 4:38 AM CDT 05/07/2023 5:31 AM CDT Kenia Bhandari M.D. LAB BLOOD ADD-ON Performing Organization Address [facility] Co de Phone Number [address] [address], [place] [address] * (ABNORMAL) Basic Metabolic Panel (05/07/2023 4:38 AM CDT) Potassium, S 4.1 3.6 - 5.2 mmol/L 05/07/2023 5:49 AM CDT DTL Sodium, S 139 135 - 145 mmol/L 05/07/2023 5:49 AM CDT DTL Chloride, S 104 98 - 107 mmol/L 05/07/2023 5:49 AM CDT DTL Bicarbonate, S 27 22 - 29 mmol/L 05/07/2023 5:49 AM CDT DTL Anion Gap 8 7 - 15 05/07/2023 5:49 AM CDT DTL BUN (Blood Urea Nitrogen), S 15 8 - 24 mg/dL 05/07/2023 5:49 AM CDT DTL Creatinine 0.86 0.74 - 1.35 mg/dL 05/07/2023 5:49 AM CDT DTL Estimated GFR (eGFR) >90 >=60 mL/min/BSA 05/07/2023 5:49 AM CDT DTL Comment: Estimated GFR calculated using the 2020 CKD_EPI creatinine equation. Calcium, Total, S 8.2(L) 8.8 - 10.2 mg/dL 05/07/2023 5:49 AM CDT DTL Glucose, S 185(H) 70 - 140 mg/dL 05/07/2023 5:49 AM CDT DTL Blood (Blood, Venous) 05/07/2023 4:38 AM CDT 05/07/2023 5:31 AM CDT Kenia Bhandari M.D. LAB BLOOD ADD-ON [facility] [address] [place] [address], [facility] [address] [place] [address] * (ABNORMAL) CBC with Differential, Blood (05/07/2023 4:38 AM CDT) Hemoglobin 8.6(L) 13.2 - 16.6 g/dL 05/07/2023 5:21 AM CDT DTL Hematocrit 28.7(L) 38.3 - 48.6 % 05/07/2023 5:21 AM CDT DTL Erythrocytes 3.58(L) 4.35 - 5.65 x10(12)/L 05/07/2023 5:21 AM CDT DTL MCV 80.2 78.2 - 97.9 fL 05/07/2023 5:21 AM CDT DTL RBC Distrib Width 19.5(H) 11.8 - 14.5 % 05/07/2023 5:21 AM CDT DTL Platelet Count 258 135 - 317 x10(9)/L 05/07/2023 5:21 AM CDT DTL Leukocytes 6.6 3.4 - 9.6 x10(9)/L 05/07/2023 5:21 AM CDT DTL Neutrophils 4.85 1.56 - 6.45 x10(9)/L 05/07/2023 5:21 AM CDT DHPM Lymphocytes 0.84(L) 0.95 - 3.07 x10(9)/L 05/07/2023 5:21 AM CDT DTL Monocytes 0.57 0.26 - 0.81 x10(9)/L 05/07/2023 5:21 AM CDT DTL Eosinophils 0.28 0.03 - 0.48 x10(9)/L 05/07/2023 5:21 AM CDT DTL Basophils 0.04 0.01 - 0.08 x10(9)/L 05/07/2023 5:21 AM CDT DTL Blood (Blood, Venous) 05/07/2023 4:38 AM CDT 05/07/2023 5:11 AM CDT Kenia Bhandari M.D. LAB BLOOD ADD-ON [facility] [address] [place] [address], [facility] DTL [facility] [address] [place] [address] DHPM [facility] [address] [place] [address] * (ABNORMAL) Glucose, POCT (05/06/2023 9:55 PM CDT) Glucose, POCT, B 164(H) 70 - 140 mg/dL 05/06/2023 9:58 PM CDT PCLX Site Capillary 05/06/2023 9:58 PM CDT PCLX Last Intake ContTubFdg 05/06/2023 9:58 PM CDT PCLX Blood 05/06/2023 9:55 PM CDT 05/06/2023 9:58 PM CDT Unknown Provider LAB POCT ORDERABLES- MANUAL POC [facility] [address] [place] [address], [facility] PCLX [facility] POC [address] [place] [address] * DX Abdomen Portable Anterior Posterior 1 View (05/06/2023 5:18 PM CDT) Anatomical Region Laterality Modality Abdomen, Abdominal RST LOS, Abdominal ARZ LOS, Abdominal FLA LOS N/A Digital Radiography 05/06/2023 5:32 PM CDT Impressions 05/06/2023 10:48 PM CDT Comparison abdominal radiograph 05/03/2023. Interval advancement of the nasojejunal tube with tip overlying the proximal jejunum. Narrative 05/06/2023 10:48 PM CDT EXAM: ??DX ABDOMEN PORTABLE ANTERIOR POSTERIOR 1 VIEW Procedure Note Td Pineda M.D., M.S. - 05/06/2023 EXAM: DX ABDOMEN PORTABLE ANTERIOR POSTERIOR 1 VIEW IMPRESSION: Comparison abdominal radiograph 05/03/2023. Interval advancement of thenasojejunal tube with tip overlying the proximal jejunum. Kenia Bhandari M.D. IMG DIAGNOSTIC IMAGI NG PROCEDURES * Glucose, POCT (05/06/2023 4:49 PM CDT) Glucose, POCT, B 89 70 - 140 mg/dL 05/06/2023 4:56 PM CDT PCLX Blood 05/06/2023 4:49 PM CDT 05/06/2023 4:56 PM CDT Unknown Provider LAB POCT ORDERABLES- MANUAL POC [facility] [address] [place] [address], [facility] PCLX [facility] POC [address] [place] [address] * Glucose, POCT (05/06/2023 2:58 PM CDT) Glucose, POCT, B 85 70 - 140 mg/dL 05/06/2023 3:05 PM CDT PCLX Site Capillary 05/06/2023 3:05 PM CDT PCLX Last Intake ContTubFdg 05/06/2023 3:05 PM CDT PCLX Blood 05/06/2023 2:58 PM CDT 05/06/2023 3:05 PM CDT Unknown Provider LAB POCT ORDERABLES- MANUAL Performing Organization Address [facility] Co de Phone Number POC [facility] [address] [place] [address], [place] PCLX [facility] POC [address] [place] [address] * FL Fluoro Less Than 1 Hour (05/06/2023 1:42 PM CDT) Narrative ERCP LOS RST - 05/06/2023 1:44 PM CDT This exam does not require a radiologist review or interpretation. Please refer to the patient's medical record on this date for clinical details. Emmett Santos M.D. IMG FLUOROSCOPY PROC EDURES Performing Organization Address [facility] Co de Phone Number ERCP LOS RST * Upper GI Endoscopy (05/06/2023 12:37 PM CDT) 05/06/2023 12:3 7 PM CDT Impressions [facility] - 05/06/2023 2:40 PM CDT Post-op Diagnoses: ? - Normal esophagus. ? - Normal stomach. ? - Normal duodenal bulb, first portion of the duodenum and second portion ? of the duodenum. ? 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 ? - Feeding tube placement was successfully performed. ? - No specimens collected. Narrative [facility] - 05/06/2023 2:40 PM CDT Guido 6 GI GI Patient Name: Hola Lau Date of : 1950 Age: 72 Gender: Male Procedure Date: 05/06/2023 Procedure: ? Upper GI endoscopy Providers: ? Caop Saldivar MD, Sindy De León MD (Fellow) Referring Provider: ?Emmett Santos Pre-op Diagnoses: ?Tumor of the duodenum Recommendation: ? - Return to referring physician. Findings: ? The examined esophagus was normal. ? The stomach was normal. ? The duodenal bulb, first portion of the duodenum and second portion of ? the duodenum were normal. ? A circumferential ulcerated mass with no bleeding was found in the third ? portion of the duodenum. ? A guide wire was inserted into the jejunum and the endoscope was ? removed. A 12 Fr nasojejunal tube was advanced over the guide wire into ? the jejunum. Placement was confirmed by fluoroscopy. Procedural Details: ? The patient [...] oxygen saturations ? were monitored continuously. The Pediatric Gastroscope was introduced ? under direct vision through the right nostril, and advanced to the third ? part of duodenum. The upper GI endoscopy was accomplished without ? difficulty. The patient tolerated the procedure well. Estimated Blood Loss: ?Estimated blood loss: none. Complications: ? No immediate complications. 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 procedure, including non-duncan portions. Capo Saldivar MD 05/06/2023 2:40:22 PM This report has been signed electronically. Number of Addenda: 0 Emmett Santos M.D. GI PROCEDURE ORDERAB [employer] NA * Glucose, POCT (05/06/2023 12:37 PM CDT) Glucose, POCT, B 90 70 - 140 mg/dL 05/06/2023 12:39 PM CDT PCLX Site Capillary 05/06/2023 12:39 PM CDT PCLX Blood 05/06/2023 12:3 7 PM CDT 05/06/2023 12:39 PM CDT Unknown Provider LAB POCT ORDERABLES- MANUAL POC [facility] [address] [place] [address], [facility] PCLX [facility] POC [address] [place] [address] * Glucose, POCT (05/06/2023 10:51 AM CDT) Glucose, POCT, B 93 70 - 140 mg/dL 05/06/2023 10:53 AM CDT PCLX Site Capillary 05/06/2023 10:53 AM CDT PCLX Last Intake NPO 05/06/2023 10:53 AM CDT PCLX Blood 05/06/2023 10:5 1 AM CDT 05/06/2023 10:53 AM CDT Unknown Provider LAB POCT ORDERABLES- MANUAL Performing Organization Address City/[facility]/ZIP Co de Phone Number POC [facility] [address] [place] [address], [facility] PCLX [facility] POC [address] [place] [address] * HIV-1/HIV-2 Ab Rapid (05/06/2023 9:32 AM CDT) HIV-1/HIV-2 Ab Rapid Pt Source, B Negative Negative 05/06/2023 10:13 AM CDT [facility] Blood 05/06/2023 9:32 AM CDT 05/06/2023 9:39 AM CDT Ashutosh Sommer M.D. LAB MICROBIOLOGY - B LOOD ORDERABLES [facility] [address] [place] [address], [facility] STMA [facility] [address] [place] [address] * BBF Source Profile Rapid (05/06/2023 9:32 AM CDT) Pathologist [facility] HCV Ab Screen Patient Source, S Negative Negative 05/06/2023 3:14 PM CDT [facility] Comment:Cyehdy-gb-newopy rat io is <1.00. HBs Antigen Patient Source, S Negative Negative 05/06/2023 3:00 PM CDT [facility] HIV-1/-2 Ag and Ab PS, P Negative Negative 05/06/2023 2:58 PM CDT [facility] Comment: Negative result does not rule out HIV infection. If exposure to HIV infection occurred <14 days ago, contact the laboratory to request addition of HIV-1/HIV-2 RNA Detection Patient Source, Plasma (HEP12). Blood (Blood, Venous) 05/06/2023 9:32 AM CDT 05/06/2023 1:33 PM CDT Narrative [facility] - 05/06/2023 3:14 PM CDT Specimen Information: Specimen ID: [id number] Specimen Type: Blood Specimen Collection Start Date: 05/06/2023 ??9:32 AM Specimen Received Date: 05/06/2023 ??1:33 PM Specimen ID: [id number] Specimen Type: Blood Specimen Collection Start Date: 05/06/2023 ??9:32 AM Specimen Received Date: 05/06/2023 ??1:32 PM Ashutosh Sommer M.D. LAB MICROBIOLOGY - B LOOD ORDERABLES [facility] [address] [place] [address] [facility] [address] [place] [address] * Glucose, POCT (05/06/2023 8:33 AM CDT) [facility] Glucose, POCT, B 107 70 - 140 mg/dL 05/06/2023 8:40 AM CDT [facility] Site Capillary 05/06/2023 8:40 AM CDT [facility] Last Intake NPO 05/06/2023 8:40 AM CDT [facility] Blood 05/06/2023 8:33 AM CDT 05/06/2023 8:40 AM CDT Unknown Provider LAB POCT ORDERABLES- MANUAL POC [facility] [facility] [address] [place] [address], [facility] PCLX [facility] POC [address] [place] [address] * Phosphorus Inorganic (05/06/2023 5:23 AM CDT) Phosphorus (Inorganic), S 3.4 2.5 - 4.5 mg/dL 05/06/2023 6:49 AM CDT DTL Blood (Blood, Venous) 05/06/2023 5:23 AM CDT 05/06/2023 6:23 AM CDT Kenia Bhandari M.D. LAB BLOOD ADD-ON Performing Organization Address City/[facility]/ZIP Co de Phone Number [facility] [address] [place] [address], [facility] [address] [place] [address] * Magnesium (05/06/2023 5:23 AM CDT) Magnesium, S 1.7 1.7 - 2.3 mg/dL 05/06/2023 6:49 AM CDT DTL Blood (Blood, Venous) 05/06/2023 5:23 AM CDT 05/06/2023 6:23 AM CDT Kenia Bhandari M.D. LAB BLOOD ADD-ON Performing Organization Address City/[facility]/ZIP Co de Phone Number [facility] [address], [place] [address] [address] [place] [address] * (ABNORMAL) Basic Metabolic Panel (05/06/2023 5:23 AM CDT) Potassium, S 4.2 3.6 - 5.2 mmol/L 05/06/2023 6:49 AM CDT DTL Sodium, S 143 135 - 145 mmol/L 05/06/2023 6:49 AM CDT DTL Chloride, S 108(H) 98 - 107 mmol/L 05/06/2023 6:49 AM CDT DTL Bicarbonate, S 25 22 - 29 mmol/L 05/06/2023 6:49 AM CDT DTL Anion Gap 10 7 - 15 05/06/2023 6:49 AM CDT DTL BUN (Blood Urea Nitrogen), S 14 8 - 24 mg/dL 05/06/2023 6:49 AM CDT DTL Creatinine 0.86 0.74 - 1.35 mg/dL 05/06/2023 6:49 AM CDT DTL Estimated GFR (eGFR) >90 >=60 mL/min/BSA 05/06/2023 6:49 AM CDT DTL Comment: Estimated GFR calculated using the 2020 CKD_EPI creatinine equation. Calcium, Total, S 8.2(L) 8.8 - 10.2 mg/dL 05/06/2023 6:49 AM CDT DTL Glucose, S 90 70 - 140 mg/dL 05/06/2023 6:49 AM CDT DTL Blood (Blood, Venous) 05/06/2023 5:23 AM CDT 05/06/2023 6:23 AM CDT Kenia Bhandari M.D. LAB BLOOD ADD-ON [facility] [address] [place] [address], [facility] [address] [place] [address] * (ABNORMAL) CBC with Differential, Blood (05/06/2023 5:23 AM CDT) Hemoglobin 8.6(L) 13.2 - 16.6 g/dL 05/06/2023 6:13 AM CDT DTL Hematocrit 29.0(L) 38.3 - 48.6 % 05/06/2023 6:13 AM CDT DTL Erythrocytes 3.55(L) 4.35 - 5.65 x10(12)/L 05/06/2023 6:13 AM CDT DTL MCV 81.7 78.2 - 97.9 fL 05/06/2023 6:13 AM CDT DTL RBC Distrib Width 19.2(H) 11.8 - 14.5 % 05/06/2023 6:13 AM CDT DTL Platelet Count 248 135 - 317 x10(9)/L 05/06/2023 6:13 AM CDT DTL Leukocytes 6.0 3.4 - 9.6 x10(9)/L 05/06/2023 6:13 AM CDT DTL Neutrophils 4.20 1.56 - 6.45 x10(9)/L 05/06/2023 6:13 AM CDT DHPM Lymphocytes 0.93(L) 0.95 - 3.07 x10(9)/L 05/06/2023 6:13 AM CDT DTL Monocytes 0.52 0.26 - 0.81 x10(9)/L 05/06/2023 6:13 AM CDT DTL Eosinophils 0.24 0.03 - 0.48 x10(9)/L 05/06/2023 6:13 AM CDT DTL Basophils 0.07 0.01 - 0.08 x10(9)/L 05/06/2023 6:13 AM CDT DTL Blood (Blood, Venous) 05/06/2023 5:23 AM CDT 05/06/2023 6:04 AM CDT Kenia Bhandari M.D. LAB BLOOD ADD-ON [facility] [address] [place] [address], [facility] DTL [facility] [address] [place] [address] [facility] [address] [place] [address] * Glucose, POCT (05/05/2023 4:58 PM CDT) [facility] Glucose, POCT, B 106 70 - 140 mg/dL 05/05/2023 5:00 PM CDT PCLX Site Capillary 05/05/2023 5:00 PM CDT PCLX Last Intake NPO 05/05/2023 5:00 PM CDT PCLX Blood 05/05/2023 4:58 PM CDT 05/05/2023 5:00 PM CDT Unknown Provider LAB POCT ORDERABLES- MANUAL POC [facility] [address] [place] [address], [place] PCLX [facility] POC [address] [place] [address] * Glucose, POCT (05/05/2023 12:05 PM CDT) Glucose, POCT, B 113 70 - 140 mg/dL 05/05/2023 12:08 PM CDT PCLX Last Intake 3-4 hours 05/05/2023 12:08 PM CDT PCLX Blood 05/05/2023 12:0 5 PM CDT 05/05/2023 12:08 PM CDT Unknown Provider LAB POCT ORDERABLES- MANUAL Performing Organization Address City/[facility]/ZIP Co de Phone Number POC [facility] [address] [place] [address], [place] [facility] POC [address] [place] [address] * Glucose, POCT (05/05/2023 9:13 AM CDT) Glucose, POCT, B 109 70 - 140 mg/dL 05/05/2023 9:15 AM CDT PCLX Site Capillary 05/05/2023 9:15 AM CDT PCLX Blood 05/05/2023 9:13 AM CDT 05/05/2023 9:16 AM CDT Unknown Provider LAB POCT ORDERABLES- MANUAL POC [facility] [address] [place] [address], [place] [facility] POC [address] [place] [address] * Phosphorus Inorganic (05/05/2023 4:47 AM CDT) Phosphorus (Inorganic), S 2.6 2.5 - 4.5 mg/dL 05/05/2023 6:02 AM CDT DTL Blood (Blood, Venous) 05/05/2023 4:47 AM CDT 05/05/2023 5:16 AM CDT Kenia Bhandari M.D. LAB BLOOD ADD-ON [facility] [address] [place] [address] * (ABNORMAL) Magnesium (05/05/2023 4:47 AM CDT) Magnesium, S 1.6(L) 1.7 - 2.3 mg/dL 05/05/2023 6:02 AM CDT DTL Blood (Blood, Venous) 05/05/2023 4:47 AM CDT 05/05/2023 5:16 AM CDT Kenia Bhandari M.D. LAB BLOOD ADD-ON Performing Organization Address City/[facility]/ZIP Co de Phone Number [facility] [address] [place] [address], [place] [address] * (ABNORMAL) Basic Metabolic Panel (05/05/2023 4:47 AM CDT) Potassium, S 4.2 3.6 - 5.2 mmol/L 05/05/2023 6:02 AM CDT DTL Sodium, S 141 135 - 145 mmol/L 05/05/2023 6:02 AM CDT DTL Chloride, S 107 98 - 107 mmol/L 05/05/2023 6:02 AM CDT DTL Bicarbonate, S 22 22 - 29 mmol/L 05/05/2023 6:02 AM CDT DTL Anion Gap 12 7 - 15 05/05/2023 6:02 AM CDT DTL BUN (Blood Urea Nitrogen), S 14 8 - 24 mg/dL 05/05/2023 6:02 AM CDT DTL Creatinine 0.83 0.74 - 1.35 mg/dL 05/05/2023 6:02 AM CDT DTL Estimated GFR (eGFR) >90 >=60 mL/min/BSA 05/05/2023 6:02 AM CDT DTL Comment: Estimated GFR calculated using the 2020 CKD_EPI creatinine equation. Calcium, Total, S 8.4(L) 8.8 - 10.2 mg/dL 05/05/2023 6:02 AM CDT DTL Glucose, S 156(H) 70 - 140 mg/dL 05/05/2023 6:02 AM CDT DTL Blood (Blood, Venous) 05/05/2023 4:47 AM CDT 05/05/2023 5:16 AM CDT Kenia Bhandari M.D. LAB BLOOD ADD-ON [facility] [address] [place], [place] [id number] [place] [address] [facility] [address] [place] [address] * (ABNORMAL) CBC with Differential, Blood (05/05/2023 4:47 AM CDT) Hemoglobin 9.1(L) 13.2 - 16.6 g/dL 05/05/2023 5:17 AM CDT DTL Hematocrit 30.9(L) 38.3 - 48.6 % 05/05/2023 5:17 AM CDT DTL Erythrocytes 3.81(L) 4.35 - 5.65 x10(12)/L 05/05/2023 5:17 AM CDT DTL MCV 81.1 78.2 - 97.9 fL 05/05/2023 5:17 AM CDT DTL RBC Distrib Width 19.0(H) 11.8 - 14.5 % 05/05/2023 5:17 AM CDT DTL Platelet Count 274 135 - 317 x10(9)/L 05/05/2023 5:17 AM CDT DTL Leukocytes 7.2 3.4 - 9.6 x10(9)/L 05/05/2023 5:17 AM CDT DTL Neutrophils 5.49 1.56 - 6.45 x10(9)/L 05/05/2023 5:17 AM CDT DHPM Lymphocytes 0.82(L) 0.95 - 3.07 x10(9)/L 05/05/2023 5:17 AM CDT DTL Monocytes 0.58 0.26 - 0.81 x10(9)/L 05/05/2023 5:17 AM CDT DTL Eosinophils 0.22 0.03 - 0.48 x10(9)/L 05/05/2023 5:17 AM CDT DTL Basophils 0.04 0.01 - 0.08 x10(9)/L 05/05/2023 5:17 AM CDT DTL Blood (Blood, Venous) 05/05/2023 4:47 AM CDT 05/05/2023 5:08 AM CDT Kenia Bhandari M.D[place] [address], [facility] DTL [facility] [address] [place] [address] [place] [address] * (ABNORMAL) Glucose, POCT (05/04/2023 11:30 PM CDT) [facility] Glucose, POCT, B 142(H) 70 - 140 mg/dL 05/04/2023 11:35 PM CDT PCLX Site Capillary 05/04/2023 11:35 PM CDT PCLX Last Intake NPO 05/04/2023 11:35 PM CDT PCLX Blood 05/04/2023 11:3 0 PM CDT 05/04/2023 11:35 PM CDT Unknown Provider LAB POCT ORDERABLES- MANUAL POC [facility] [address] [place] [address], [facility] PCLX [facility] POC [address] [place] [address] * (ABNORMAL) Glucose, POCT (05/04/2023 5:31 PM CDT) Glucose, POCT, B 152(H) 70 - 140 mg/dL 05/04/2023 5:42 PM CDT PCLX Site Capillary 05/04/2023 5:42 PM CDT PCLX Last Intake ContTubFdg 05/04/2023 5:42 PM CDT PCLX Blood 05/04/2023 5:31 PM CDT 05/04/2023 5:42 PM CDT Unknown Provider LAB POCT ORDERABLES- MANUAL Performing Organization Address City/[facility]/ZIP Co de Phone Number [facility] [address] [place] [address], [facility] PCLX [facility] POC [address] [place] [address] * (ABNORMAL) Glucose, POCT (05/04/2023 12:06 PM CDT) Glucose, POCT, B 150(H) 70 - 140 mg/dL 05/04/2023 12:09 PM CDT PCLX Site Capillary 05/04/2023 12:09 PM CDT PCLX Last Intake ContTubFdg 05/04/2023 12:09 PM CDT PCLX Blood 05/04/2023 12:0 6 PM CDT 05/04/2023 12:09 PM CDT Unknown Provider LAB POCT ORDERABLES- MANUAL [facility] [address] [place] [address], [facility] PCLX [facility] POC [address] [place] [address] * Phosphorus Inorganic (05/04/2023 8:55 AM CDT) Phosphorus (Inorganic), S 2.6 2.5 - 4.5 mg/dL 05/04/2023 10:00 AM CDT DTL Blood (Blood, Venous) 05/04/2023 8:55 AM CDT 05/04/2023 9:43 AM CDT Amy Coley M.D. LAB BLOOD ADD-ON Performing Organization Address City/[facility]/ZIP Co de Phone Number [facility] [address], [place] [id number] [place] [address] [address] [place] [address] * (ABNORMAL) Magnesium (05/04/2023 8:55 AM CDT) Magnesium, S 1.5(L) 1.7 - 2.3 mg/dL 05/04/2023 10:00 AM CDT DTL Blood (Blood, Venous) 05/04/2023 8:55 AM CDT 05/04/2023 9:43 AM CDT Amy Coley M.D. LAB BLOOD ADD-ON Performing Organization Address [facility] Co de Phone Number [facility] [address], [place] [id number] [place] [address] [address] [place] [address] * (ABNORMAL) Basic Metabolic Panel (05/04/2023 8:55 AM CDT) Potassium, S 4.0 3.6 - 5.2 mmol/L 05/04/2023 10:00 AM CDT DTL Sodium, S 141 135 - 145 mmol/L 05/04/2023 10:00 AM CDT DTL Chloride, S 107 98 - 107 mmol/L 05/04/2023 10:00 AM CDT DTL Bicarbonate, S 24 22 - 29 mmol/L 05/04/2023 10:00 AM CDT DTL Anion Gap 10 7 - 15 05/04/2023 10:00 AM CDT DTL BUN (Blood Urea Nitrogen), S 14 8 - 24 mg/dL 05/04/2023 10:00 AM CDT DTL Creatinine 0.85 0.74 - 1.35 mg/dL 05/04/2023 10:00 AM CDT DTL Estimated GFR (eGFR) >90 >=60 mL/min/BSA 05/04/2023 10:00 AM CDT DTL Comment: Estimated GFR calculated using the 2020 CKD_EPI creatinine equation. Calcium, Total, S 8.2(L) 8.8 - 10.2 mg/dL 05/04/2023 10:00 AM CDT DTL Glucose, S 154(H) 70 - 140 mg/dL 05/04/2023 10:00 AM CDT DTL Blood (Blood, Venous) 05/04/2023 8:55 AM CDT 05/04/2023 9:43 AM CDT Amy Coley M.D. LAB BLOOD ADD-ON [facility] [address] [place] [address], [facility] [address] [place] [address] * (ABNORMAL) CBC with Differential, Blood (05/04/2023 8:55 AM CDT) Hemoglobin 8.9(L) 13.2 - 16.6 g/dL 05/04/2023 9:37 AM CDT DTL Hematocrit 29.0(L) 38.3 - 48.6 % 05/04/2023 9:37 AM CDT DTL Erythrocytes 3.66(L) 4.35 - 5.65 x10(12)/L 05/04/2023 9:37 AM CDT DTL MCV 79.2 78.2 - 97.9 fL 05/04/2023 9:37 AM CDT DTL RBC Distrib Width 18.4(H) 11.8 - 14.5 % 05/04/2023 9:37 AM CDT DTL Platelet Count 282 135 - 317 x10(9)/L 05/04/2023 9:37 AM CDT DTL Leukocytes 7.1 3.4 - 9.6 x10(9)/L 05/04/2023 9:37 AM CDT DTL Neutrophils 5.37 1.56 - 6.45 x10(9)/L 05/04/2023 9:36 AM CDT DHPM Lymphocytes 0.76(L) 0.95 - 3.07 x10(9)/L 05/04/2023 9:37 AM CDT DTL Monocytes 0.70 0.26 - 0.81 x10(9)/L 05/04/2023 9:37 AM CDT DTL Eosinophils 0.23 0.03 - 0.48 x10(9)/L 05/04/2023 9:37 AM CDT DTL Basophils 0.04 0.01 - 0.08 x10(9)/L 05/04/2023 9:37 AM CDT DTL Blood (Blood, Venous) 05/04/2023 8:55 AM CDT 05/04/2023 9:30 AM CDT Amy Coley M.D. LAB BLOOD ADD-ON Performing Organization Address City/[facility]/ZIP Co de Phone Number [facility] [address] [place] [address], [facility] DTL [facility] [address] [place] [address] DHPM [facility] [address] [place] [address] * (ABNORMAL) Glucose, POCT (05/04/2023 8:47 AM CDT) [facility] Glucose, POCT, B 151(H) 70 - 140 mg/dL 05/04/2023 8:51 AM CDT PCLX Site Capillary 05/04/2023 8:51 AM CDT PCLX Last Intake ContTubFdg 05/04/2023 8:51 AM CDT PCLX Blood 05/04/2023 8:47 AM CDT 05/04/2023 8:51 AM CDT Unknown Provider LAB POCT ORDERABLES- MANUAL POC [facility] [address] [place] [address], [facility] PCLX [facility] POC [address] [place] [address] * Glucose, POCT (05/03/2023 9:55 PM CDT) Glucose, POCT, B 106 70 - 140 mg/dL 05/03/2023 10:02 PM CDT PCLX Blood 05/03/2023 9:55 PM CDT 05/03/2023 10:02 PM CDT Unknown Provider LAB POCT ORDERABLES- MANUAL Performing Organization Address [facility] Co de Phone Number POC [facility] [address] [place] [address], [facility] PCLX [facility] POC [address] [place] [address] * Glucose, POCT (05/03/2023 5:29 PM CDT) Glucose, POCT, B 100 70 - 140 mg/dL 05/03/2023 5:55 PM CDT PCLX Site Capillary 05/03/2023 5:55 PM CDT PCLX Last Intake ContTubFdg 05/03/2023 5:55 PM CDT PCLX Blood 05/03/2023 5:29 PM CDT 05/03/2023 5:56 PM CDT Unknown Provider LAB POCT ORDERABLES- MANUAL Performing Organization Address [facility] de Phone Number [facility] [address] [place] [address], [facility] PCLX [facility] POC [address] [place] [address] * DX Abdomen 1 View (05/03/2023 2:55 PM CDT) Anatomical Region Laterality Modality Abdomen, Abdominal RST LOS, Abdominal ARZ LOS, Abdominal FLA LOS N/A Digital Radiography 05/03/2023 3:01 PM CDT Impressions 05/03/2023 3:11 PM CDT Comparison with 05/01/2023. Stable positioning of the enteric tube with tip in the proximal jejunum. Contrast is seen throughout the colon. Nonobstructive bowel gas pattern. Extensive splenic artery calcifications. Narrative 05/03/2023 3:11 PM CDT EXAM: ??DX ABDOMEN 1 VIEW Procedure Note Jose Ames M.D. - 05/03/2023 EXAM: DX ABDOMEN 1 VIEW IMPRESSION: Comparison with 05/01/2023. Stable positioning of the enteric tube withtip in the proximal jejunum. Contrast is seen throughout the colon. Nonobstructivebowel gas pattern. Extensive splenic artery calcifications. Yue Mills M.D. IMG DIAGNOSTIC IMAGING PROCEDURES * Glucose, POCT (05/03/2023 11:40 AM CDT) Glucose, POCT, B 140 70 - 140 mg/dL 05/03/2023 11:43 AM CDT PCLX Site Capillary 05/03/2023 11:43 AM CDT PCLX Last Intake ContTubFdg 05/03/2023 11:43 AM CDT PCLX Blood 05/03/2023 11:4 0 AM CDT 05/03/2023 11:44 AM CDT Unknown Provider LAB POCT ORDERABLES- MANUAL Performing Organization Address City/[facility]/ZIP Co de Phone Number POC [facility] [address] [place] [address], [facility] PCLX [facility] POC [address] [place] [address] * (ABNORMAL) Glucose, POCT (05/03/2023 8:21 AM CDT) Glucose, POCT, B 142(H) 70 - 140 mg/dL 05/03/2023 8:37 AM CDT PCLX Site Capillary 05/03/2023 8:37 AM CDT PCLX Last Intake ContTubFdg 05/03/2023 8:37 AM CDT PCLX Blood 05/03/2023 8:21 AM CDT 05/03/2023 8:38 AM CDT Unknown Provider LAB POCT ORDERABLES- MANUAL POC [facility] [address] [place] [address], [facility] PCLX [facility] POC [address] [place] [address] * (ABNORMAL) CBC with Differential, Blood (05/03/2023 4:41 AM CDT) Hemoglobin 8.6(L) 13.2 - 16.6 g/dL 05/03/2023 5:10 AM CDT DTL Hematocrit 28.1(L) 38.3 - 48.6 % 05/03/2023 5:10 AM CDT DTL Erythrocytes 3.55(L) 4.35 - 5.65 x10(12)/L 05/03/2023 5:10 AM CDT DTL MCV 79.2 78.2 - 97.9 fL 05/03/2023 5:10 AM CDT DTL RBC Distrib Width 17.4(H) 11.8 - 14.5 % 05/03/2023 5:10 AM CDT DTL Platelet Count 303 135 - 317 x10(9)/L 05/03/2023 5:10 AM CDT DTL Leukocytes 6.7 3.4 - 9.6 x10(9)/L 05/03/2023 5:10 AM CDT DTL Neutrophils 4.95 1.56 - 6.45 x10(9)/L 05/03/2023 5:10 AM CDT DHPM Lymphocytes 0.83(L) 0.95 - 3.07 x10(9)/L 05/03/2023 5:10 AM CDT DTL Monocytes 0.61 0.26 - 0.81 x10(9)/L 05/03/2023 5:10 AM CDT DTL Eosinophils 0.23 0.03 - 0.48 x10(9)/L 05/03/2023 5:10 AM CDT DTL Basophils 0.05 0.01 - 0.08 x10(9)/L 05/03/2023 5:10 AM CDT DTL Blood (Blood, Venous) 05/03/2023 4:41 AM CDT 05/03/2023 5:02 AM CDT Abilio Goodson M.D. LAB BLOOD ADD-ON Performing Organization Address City/[facility]/ZIP Co de Phone Number [facility] [address] [place] [address], [facility] [address] [place] [address] * Magnesium (05/03/2023 4:41 AM CDT) Magnesium, S 1.7 1.7 - 2.3 mg/dL 05/03/2023 5:40 AM CDT DTL Blood (Blood, Venous) 05/03/2023 4:41 AM CDT 05/03/2023 5:20 AM CDT Abilio Goodson M.D. LAB BLOOD ADD-ON Performing Organization Address City/[facility] Co de Phone Number [facility] [address], [place] [phone] [place] [address] [address] [place] [address] * (ABNORMAL) Phosphorus Inorganic (05/03/2023 4:41 AM CDT) Phosphorus (Inorganic), S 2.3(L) 2.5 - 4.5 mg/dL 05/03/2023 5:40 AM CDT DTL Blood (Blood, Venous) 05/03/2023 4:41 AM CDT 05/03/2023 5:20 AM CDT Abilio Goodson M.D. LAB BLOOD ADD-ON [facility] [address] [place] [address], [facility] [address] [place] [address] * (ABNORMAL) Basic Metabolic Panel (05/03/2023 4:41 AM CDT) Potassium, S 4.2 3.6 - 5.2 mmol/L 05/03/2023 5:40 AM CDT DTL Sodium, S 144 135 - 145 mmol/L 05/03/2023 5:40 AM CDT DTL Chloride, S 110(H) 98 - 107 mmol/L 05/03/2023 5:40 AM CDT DTL Bicarbonate, S 22 22 - 29 mmol/L 05/03/2023 5:40 AM CDT DTL Anion Gap 12 7 - 15 05/03/2023 5:40 AM CDT DTL BUN (Blood Urea Nitrogen), S 12 8 - 24 mg/dL 05/03/2023 5:40 AM CDT DTL Creatinine 0.86 0.74 - 1.35 mg/dL 05/03/2023 5:40 AM CDT DTL Estimated GFR (eGFR) >90 >=60 mL/min/BSA 05/03/2023 5:40 AM CDT DTL Comment: Estimated GFR calculated using the 2020 CKD_EPI creatinine equation. Calcium, Total, S 8.2(L) 8.8 - 10.2 mg/dL 05/03/2023 5:40 AM CDT DTL Glucose, S 132 70 - 140 mg/dL 05/03/2023 5:40 AM CDT DTL Blood (Blood, Venous) 05/03/2023 4:41 AM CDT 05/03/2023 5:20 AM CDT Abilio Goodson M.D. LAB BLOOD ADD-ON [facility] [address] [place] [address], [facility] [address] [place] [address] * Glucose, POCT (05/02/2023 9:19 PM CDT) Glucose, POCT, B 89 70 - 140 mg/dL 05/02/2023 9:21 PM CDT PCLX Site Capillary 05/02/2023 9:21 PM CDT PCLX Last Intake ContTubFdg 05/02/2023 9:21 PM CDT PCLX Blood 05/02/2023 9:19 PM CDT 05/02/2023 9:21 PM CDT Unknown Provider LAB POCT ORDERABLES- MANUAL POC [facility] [address] [place] [address], [facility] PCLX [facility] POC [address] [place] [address] * Glucose, POCT (05/02/2023 4:35 PM CDT) Glucose, POCT, B 90 70 - 140 mg/dL 05/02/2023 4:39 PM CDT PCLX Site Capillary 05/02/2023 4:39 PM CDT PCLX Last Intake ContTubFdg 05/02/2023 4:39 PM CDT PCLX Blood 05/02/2023 4:35 PM CDT 05/02/2023 4:39 PM CDT Unknown Provider LAB POCT ORDERABLES- MANUAL Performing Organization Address [facility]/ZIP Co de Phone Number POC [facility] [address] [place] [address], [facility] PCLX [facility] POC [address] [place] [address] * [place] GI Tube Injection (05/02/2023 12:39 PM CDT) Anatomical Region Laterality Modality Gastro Intestinal, Abdominal RST LOS, Abdominal ARZ LOS, Abdominal FLA LOS N/A Digital Radiography 05/02/2023 12:4 6 PM CDT Impressions 05/02/2023 12:59 PM CDT Initial image demonstrated stable positioning of the feeding tube with tip past the ligament of Treitz in the proximal jejunum. Water-soluble contrast was injected through the feeding tube, which confirmed tip placement in the proximal jejunum. EP Narrative 05/02/2023 12:59 PM CDT EXAM: ??FL GI TUBE INJECTION COMPARISON: ??Abdominal radiograph 05/01/2023 Procedure Note Julia Clifford M.D. - 05/02/2023 EXAM: [place] GI TUBE INJECTION COMPARISON: Abdominal radiograph 05/01/2023 IMPRESSION: Initial image demonstrated stable positioning of the feeding tube with tippast the ligament of Treitz in the proximal jejunum. Water-soluble contrast was injectedthrough the feeding tube, which confirmed tip placement in the proximal jejunum. EP Abilio Goodson M.D. IMG FLUOROSCOPY PROC EDURES * Glucose, POCT (05/02/2023 11:18 AM CDT) Glucose, POCT, B 80 70 - 140 mg/dL 05/02/2023 11:19 AM CDT PCLX Site Capillary 05/02/2023 11:19 AM CDT PCLX Last Intake NPO 05/02/2023 11:19 AM CDT PCLX Blood 05/02/2023 11:1 8 AM CDT 05/02/2023 11:19 AM CDT Unknown Provider LAB POCT ORDERABLES- MANUAL Performing Organization Address City/[facility]/ZIP Co de Phone Number POC [facility] [address] [place] [address], [facility] PCLX [facility] POC [address] [place] [address] * Glucose, POCT (05/02/2023 7:47 AM CDT) Glucose, POCT, B 80 70 - 140 mg/dL 05/02/2023 7:50 AM CDT PCLX Site Capillary 05/02/2023 7:50 AM CDT PCLX Last Intake NPO 05/02/2023 7:50 AM CDT PCLX Blood 05/02/2023 7:47 AM CDT 05/02/2023 7:50 AM CDT Unknown Provider LAB POCT ORDERABLES- MANUAL Performing Organization Address City/[facility]/ZIP Co de Phone Number POC [facility] [address] [place] [address], [facility] PCLX [facility] POC [address] [place] [address] * (ABNORMAL) Phosphorus Inorganic (05/02/2023 4:43 AM CDT) Phosphorus (Inorganic), S 2.2(L) 2.5 - 4.5 mg/dL 05/02/2023 5:43 AM CDT DTL Blood (Blood, Venous) 05/02/2023 4:43 AM CDT 05/02/2023 5:23 AM CDT Omar Ellis M.D., M.S. LAB BLOOD ADD-O N [facility] [address], [place] [id number] [place] [address] [address] [place] [address] * Magnesium (05/02/2023 4:43 AM CDT) Magnesium, S 1.9 1.7 - 2.3 mg/dL 05/02/2023 5:43 AM CDT DTL Blood (Blood, Venous) 05/02/2023 4:43 AM CDT 05/02/2023 5:23 AM CDT Omar Ellis M.D., M.S. LAB BLOOD ADD-O N Performing Organization Address City/[facility]/ZIP Co de Phone Number [facility] [address], [place] [id number] [place] [address] [address] [place] [address] * (ABNORMAL) Basic Metabolic Panel (05/02/2023 4:43 AM CDT) Potassium, S 4.0 3.6 - 5.2 mmol/L 05/02/2023 5:43 AM CDT DTL Sodium, S 144 135 - 145 mmol/L 05/02/2023 5:43 AM CDT DTL Chloride, S 110(H) 98 - 107 mmol/L 05/02/2023 5:43 AM CDT DTL Bicarbonate, S 21(L) 22 - 29 mmol/L 05/02/2023 5:43 AM CDT DTL Anion Gap 13 7 - 15 05/02/2023 5:43 AM CDT DTL BUN (Blood Urea Nitrogen), S 12 8 - 24 mg/dL 05/02/2023 5:43 AM CDT DTL Creatinine 0.98 0.74 - 1.35 mg/dL 05/02/2023 5:43 AM CDT DTL Estimated GFR (eGFR) 81 >=60 mL/min/BSA 05/02/2023 5:43 AM CDT DTL Comment: Estimated GFR calculated using the 2020 CKD_EPI creatinine equation. Calcium, Total, S 8.2(L) 8.8 - 10.2 mg/dL 05/02/2023 5:43 AM CDT DTL Glucose, S 85 70 - 140 mg/dL 05/02/2023 5:43 AM CDT DTL Blood (Blood, Venous) 05/02/2023 4:43 AM CDT 05/02/2023 5:23 AM CDT Omar Ellis M.D., M.S. LAB BLOOD ADD-O N [address] [address], [facility] [address] [place] [address] * (ABNORMAL) CBC with Differential, Blood (05/02/2023 4:43 AM CDT) Hemoglobin 8.2(L) 13.2 - 16.6 g/dL 05/02/2023 5:17 AM CDT DTL Hematocrit 28.0(L) 38.3 - 48.6 % 05/02/2023 5:17 AM CDT DTL Erythrocytes 3.53(L) 4.35 - 5.65 x10(12)/L 05/02/2023 5:17 AM CDT DTL MCV 79.3 78.2 - 97.9 fL 05/02/2023 5:17 AM CDT DTL RBC Distrib Width 17.6(H) 11.8 - 14.5 % 05/02/2023 5:17 AM CDT DTL Platelet Count 268 135 - 317 x10(9)/L 05/02/2023 5:17 AM CDT DTL Leukocytes 6.3 3.4 - 9.6 x10(9)/L 05/02/2023 5:17 AM CDT DTL Neutrophils 4.71 1.56 - 6.45 x10(9)/L 05/02/2023 5:17 AM CDT DHPM Lymphocytes 0.80(L) 0.95 - 3.07 x10(9)/L 05/02/2023 5:17 AM CDT DTL Monocytes 0.50 0.26 - 0.81 x10(9)/L 05/02/2023 5:17 AM CDT DTL Eosinophils 0.25 0.03 - 0.48 x10(9)/L 05/02/2023 5:17 AM CDT DTL Basophils 0.05 0.01 - 0.08 x10(9)/L 05/02/2023 5:17 AM CDT DTL Blood (Blood, Venous) 05/02/2023 4:43 AM CDT 05/02/2023 5:07 AM CDT Omar Ellis M.D., M.S. LAB BLOOD ADD-O N [facility] [address] [place] [address], [facility] DTL [facility] [address] [place] [address] DHPM [facility] [address] [place] [address] * DX Abdomen Portable Anterior Posterior 1 View (05/01/2023 8:35 PM CDT) Anatomical Region Laterality Modality Abdomen, Abdominal RST LOS, Abdominal ARZ LOS, Abdominal FLA LOS N/A Digital Radiography 05/01/2023 9:46 PM CDT Impressions 05/02/2023 4:29 AM CDT Feeding tube tip projects over the proximal jejunum, distal to the ligament of Treitz. Narrative 05/02/2023 4:29 AM CDT EXAM: ??DX ABDOMEN PORTABLE ANTERIOR POSTERIOR 1 VIEW Procedure Note Danna Lock M.D. - 05/02/2023 EXAM: DX ABDOMEN PORTABLE ANTERIOR POSTERIOR 1 VIEW IMPRESSION: Feeding tube tip projects over the proximal jejunum, distal to theligament of Treitz. Aleida Elmore M.D. IMG DIAGNOSTIC IM AGING PROCEDURES * Glucose, POCT (05/01/2023 4:00 PM CDT) Glucose, POCT, B 110 70 - 140 mg/dL 05/01/2023 4:02 PM CDT PCLX Site Capillary 05/01/2023 4:02 PM CDT PCLX Last Intake ContTubFdg 05/01/2023 4:02 PM CDT PCLX Blood 05/01/2023 4:00 PM CDT 05/01/2023 4:02 PM CDT Unknown Provider LAB POCT ORDERABLES- MANUAL Performing Organization Address City/[facility]/ZIP Co de Phone Number POC [facility] [address] [place] [address], [place] PCLX [facility] POC [address] [place] [address] * Glucose, POCT (05/01/2023 11:22 AM CDT) Glucose, POCT, B 109 70 - 140 mg/dL 05/01/2023 11:25 AM CDT PCLX Site Capillary 05/01/2023 11:25 AM CDT PCLX Last Intake ContTubFdg 05/01/2023 11:25 AM CDT PCLX Blood 05/01/2023 11:2 2 AM CDT 05/01/2023 11:25 AM CDT Unknown Provider LAB POCT ORDERABLES- MANUAL [facility] [address] [place] [address], [place] PCLX [facility] POC [address] [place] [address] * Glucose, POCT (05/01/2023 9:09 AM CDT) Glucose, POCT, B 104 70 - 140 mg/dL 05/01/2023 9:11 AM CDT PCLX Site Capillary 05/01/2023 9:11 AM CDT PCLX Last Intake ContTubFdg 05/01/2023 9:11 AM CDT PCLX Blood 05/01/2023 9:09 AM CDT 05/01/2023 9:12 AM CDT Unknown Provider LAB POCT ORDERABLES- MANUAL [facility]OC [facility] [address] [place] [address], [facility] PCLX [facility] POC [address] [place] [address] * (ABNORMAL) Phosphorus Inorganic (05/01/2023 4:49 AM CDT) Phosphorus (Inorganic), S 2.4(L) 2.5 - 4.5 mg/dL 05/01/2023 5:34 AM CDT DTL Blood (Blood, Venous) 05/01/2023 4:49 AM CDT 05/01/2023 5:16 AM CDT Amy Coley M.D. LAB BLOOD ADD-ON [facility] [address] [place] [address], [facility] [address] [place] [address] * Magnesium (05/01/2023 4:49 AM CDT) Magnesium, S 1.9 1.7 - 2.3 mg/dL 05/01/2023 5:34 AM CDT DTL Blood (Blood, Venous) 05/01/2023 4:49 AM CDT 05/01/2023 5:16 AM CDT Amy Coley M.D. LAB BLOOD ADD-ON [facility] [address] [place] [address], [facility] [address] [place] [address] * (ABNORMAL) Comprehensive Metabolic Panel (05/01/2023 4:49 AM CDT) Potassium, S 4.0 3.6 - 5.2 mmol/L 05/01/2023 5:34 AM CDT DTL Sodium, S 142 135 - 145 mmol/L 05/01/2023 5:34 AM CDT DTL Chloride, S 111(H) 98 - 107 mmol/L 05/01/2023 5:34 AM CDT DTL Bicarbonate, S 19(L) 22 - 29 mmol/L 05/01/2023 5:34 AM CDT DTL Anion Gap 12 7 - 15 05/01/2023 5:34 AM CDT DTL BUN (Blood Urea Nitrogen), S 15 8 - 24 mg/dL 05/01/2023 5:34 AM CDT DTL Creatinine 1.15 0.74 - 1.35 mg/dL 05/01/2023 5:34 AM CDT DTL Estimated GFR (eGFR) 67 >=60 mL/min/BS A 05/01/2023 5:34 AM CDT DTL Comment: Estimated GFR calculated using the 2020 CKD_EPI creatinine equation. Calcium, Total, S 7.7(L) 8.8 - 10.2 mg/dL 05/01/2023 5:34 AM CDT DTL Glucose, S 100 70 - 140 mg/dL 05/01/2023 5:34 AM CDT DTL Protein, Total, S 5.1(L) 6.3 - 7.9 g/dL 05/01/2023 5:34 AM CDT DTL Albumin, S 3.0(L) 3.5 - 5.0 g/dL 05/01/2023 5:34 AM CDT DTL Aspartate Aminotransferase (AST), S 27 8 - 48 U/L 05/01/2023 5:34 AM CDT DTL Alkaline Phosphatase, S 157(H) 40 - 129 U/L 05/01/2023 5:34 AM CDT DTL Alanine Aminotransferase (ALT), S 24 7 - 55 U/L 05/01/2023 5:34 AM CDT DTL Bilirubin, Total, S <0.2 <=1.2 mg/dL 05/01/2023 5:34 AM CDT DTL Blood (Blood, Venous) 05/01/2023 4:49 AM CDT 05/01/2023 5:16 AM CDT Amy Coley M.D. LAB BLOOD ADD-ON [facility] [address] [place] [address], [facility] DTL [facility] [address] [place] [address] * (ABNORMAL) CBC with Differential, Blood (05/01/2023 4:49 AM CDT) Hemoglobin 8.2(L) 13.2 - 16.6 g/dL 05/01/2023 5:16 AM CDT DTL Hematocrit 27.6(L) 38.3 - 48.6 % 05/01/2023 5:16 AM CDT DTL Erythrocytes 3.43(L) 4.35 - 5.65 x10(12)/L 05/01/2023 5:16 AM CDT DTL MCV 80.5 78.2 - 97.9 fL 05/01/2023 5:16 AM CDT DTL RBC Distrib Width 17.5(H) 11.8 - 14.5 % 05/01/2023 5:16 AM CDT DTL Platelet Count 240 135 - 317 x10(9)/L 05/01/2023 5:16 AM CDT DTL Leukocytes 5.7 3.4 - 9.6 x10(9)/L 05/01/2023 5:16 AM CDT DTL Neutrophils 3.98 1.56 - 6.45 x10(9)/L 05/01/2023 5:15 AM CDT DHPM Lymphocytes 0.91(L) 0.95 - 3.07 x10(9)/L 05/01/2023 5:16 AM CDT DTL Monocytes 0.51 0.26 - 0.81 x10(9)/L 05/01/2023 5:16 AM CDT DTL Eosinophils 0.30 0.03 - 0.48 x10(9)/L 05/01/2023 5:16 AM CDT DTL Basophils 0.04 0.01 - 0.08 x10(9)/L 05/01/2023 5:16 AM CDT DTL Blood (Blood, Venous) 05/01/2023 4:49 AM CDT 05/01/2023 5:06 AM CDT Amy Coley M.D. LAB BLOOD ADD-ON [facility] [address] [place] [address], [facility] DTL [facility] [address] [place] [address] DHPM [facility] [address] [place] [address] * Glucose, POCT (04/30/2023 8:23 PM CDT) Glucose, POCT, B 92 70 - 140 mg/dL 04/30/2023 8:34 PM CDT PCLX Site Capillary 04/30/2023 8:34 PM CDT PCLX Blood 04/30/2023 8:23 PM CDT 04/30/2023 8:34 PM CDT Unknown Provider LAB POCT ORDERABLES- MANUAL Performing Organization Address City/[facility] Co de Phone Number [facility] [address] [place] [address], [facility] PCLX [facility] POC [address] [place] [address] * (ABNORMAL) Glucose, POCT (04/30/2023 5:47 PM CDT) Glucose, POCT, B 65(L) 70 - 140 mg/dL 04/30/2023 5:51 PM CDT PCLX Site Capillary 04/30/2023 5:51 PM CDT PCLX Blood 04/30/2023 5:47 PM CDT 04/30/2023 5:51 PM CDT Unknown Provider LAB POCT ORDERABLES- MANUAL POC [facility] [address] [facility] [address] [place] [address] * Reticulocytes (04/30/2023 2:13 PM CDT) Pathologist [facility] Reticulocytes, B 1.60 0.60 - 2.71 % 04/30/2023 3:05 PM CDT DTL Absolute Reticulocyte 54.4 30.4 - 110.9 x10(9)/L 04/30/2023 3:05 PM CDT DTL Blood (Blood, Venous) 04/30/2023 2:13 PM CDT 04/30/2023 2:35 PM CDT Omar Ellis M.D., M.S. LAB BLOOD ADD-O N Performing Organization Address [facility]/ZIP Co de Phone Number [facility] [address] [facility] [address] [place] [address] * Vitamin B12 Assay (04/30/2023 2:13 PM CDT) [facility] Vitamin B12 Assay, S 429 180 - 914 ng/L 05/01/2023 8:47 AM CDT DTL Comment: ----ADDITIONAL INFORMATION---- In patients being evaluated for vitamin B12 deficiency who have intrinsic factor blocking antibodies (IFBA), false elevations of B12 may occur due to IFBA interference thus potentially obscuring a physiological deficiency of B12. If observed B12 concentrations are discordant with clinical presentation, measurement of methylmalonic acid (MMA) should be considered. Blood (Blood, Venous) 04/30/2023 2:13 PM CDT 04/30/2023 2:49 PM CDT Omar Ellis M.D., M.S. LAB BLOOD ADD-O N Performing Organization Address City/[facility]/ZIP Co de Phone Number [facility] [address] [place] [address], [facility] [address] [place] [address] * (ABNORMAL) SPSMA Result (04/30/2023 2:13 PM CDT) Pathologist [facility] Neutrophilic Segs and Bands 75 50 - 75 % 04/30/2023 5:06 PM CDT DHPM Lymphocytes 14(L) 18 - 42 % 04/30/2023 5:06 PM CDT DHPM Monocytes 3 2 - 11 % 04/30/2023 5:06 PM CDT DHPM Eosinophils 6(H) 1 - 3 % 04/30/2023 5:06 PM CDT DHPM Basophils 1 0 - 2 % 04/30/2023 5:06 PM CDT DHPM Myelocytes 1(H) <0.5 % 04/30/2023 5:06 PM CDT DHPM Manual Absolute Neutrophil Count 4.05 1.56 - 6.45 x10(9)/L 04/30/2023 5:06 PM CDT DHPM Comment: ----ADDITIONAL INFORMATION---- The manual absolute neutrophil count is derived from a manual differential count and therefore is not exactly comparable to the automated absolute neutrophil count. Interpretation See Comment 5:06 PM CDT DHPM Comment:No morphologic featu res of hemolysis are seen. Reviewed by: Kaylen 04/30/2023 5:06 PM CDT DHPM Blood (Blood, Venous) 04/30/2023 2:13 PM CDT 04/30/2023 2:35 PM CDT Omar Ellis M.D., M.S. LAB BLOOD ADD-O N [facility] [address] [place] [address], [facility] [address] [place] [address] * Ferritin (04/30/2023 2:13 PM CDT) Pathologist [facility] Ferritin, S 36 31 - 409 mcg/L 04/30/2023 3:15 PM CDT DTL Blood (Blood, Venous) 04/30/2023 2:13 PM CDT 04/30/2023 2:49 PM CDT Omar Ellis M.D., M.S. LAB BLOOD ADD-O N Performing Organization Address City/[facility] Co de Phone Number [facility] [address] [place] [address], [facility] [address] [place] [address] * (ABNORMAL) Iron and Total Iron-Binding Capacity (04/30/2023 2:13 PM CDT) Pathologist [facility] Iron 19(L) 50 - 150 mcg/dL 04/30/2023 3:15 PM CDT DTL Total Iron Binding Capacity 225(L) 250 - 400 mcg/dL 04/30/2023 3:15 PM CDT DTL Percent Saturation 8(L) 14 - 50 % 04/30/2023 3:15 PM CDT DTL Blood (Blood, Venous) 04/30/2023 2:13 PM CDT 04/30/2023 2:49 PM CDT Omar Ellis M.D., M.S. LAB BLOOD ADD-O N Performing Organization Address [facility] Co de Phone Number [facility] [address] [place] [address], [facility] [address] [place] [address] * (ABNORMAL) CBC with Differential, Blood (04/30/2023 2:13 PM CDT) Hemoglobin 8.1(L) 13.2 - 16.6 g/dL 04/30/2023 3:05 PM CDT DTL Hematocrit 27.2(L) 38.3 - 48.6 % 04/30/2023 3:05 PM CDT DTL Erythrocytes 3.40(L) 4.35 - 5.65 x10(12)/L 04/30/2023 3:05 PM CDT DTL MCV 80.0 78.2 - 97.9 fL 04/30/2023 3:05 PM CDT DTL RBC Distrib Width 17.7(H) 11.8 - 14.5 % 04/30/2023 3:05 PM CDT DTL Platelet Count 213 135 - 317 x10(9)/L 04/30/2023 3:05 PM CDT DTL Leukocytes 5.4 3.4 - 9.6 x10(9)/L 04/30/2023 3:05 PM CDT DTL Neutrophils 3.72 1.56 - 6.45 x10(9)/L 04/30/2023 3:05 PM CDT DHPM Lymphocytes 0.85(L) 0.95 - 3.07 x10(9)/L 04/30/2023 3:05 PM CDT DTL Monocytes 0.52 0.26 - 0.81 x10(9)/L 04/30/2023 3:05 PM CDT DTL Eosinophils 0.30 0.03 - 0.48 x10(9)/L 04/30/2023 3:05 PM CDT DTL Basophils 0.03 0.01 - 0.08 x10(9)/L 04/30/2023 3:05 PM CDT DTL Blood (Blood, Venous) 04/30/2023 2:13 PM CDT 04/30/2023 2:35 PM CDT Omar Ellis M.D., M.S. LAB BLOOD ADD-O N [facility] [address] [place] [address], [facility] DTL [facility] [address] [place] [address] DHPM [facility] [address] [place] [address] * Glucose, POCT (04/30/2023 12:06 PM CDT) Glucose, POCT, B 75 70 - 140 mg/dL 04/30/2023 12:12 PM CDT PCLX Blood 04/30/2023 12:0 6 PM CDT 04/30/2023 12:12 PM CDT Unknown Provider LAB POCT ORDERABLES- MANUAL POC [facility] [address] [place] [address], [facility] PCLX [facility] POC [address] [place] [address] * Glucose, POCT (04/30/2023 11:06 AM CDT) Glucose, POCT, B 84 70 - 140 mg/dL 04/30/2023 11:13 AM CDT PCLX Site Capillary 04/30/2023 11:13 AM CDT PCLX Blood 04/30/2023 11:0 6 AM CDT 04/30/2023 11:13 AM CDT Unknown Provider LAB POCT ORDERABLES- MANUAL Performing Organization Address [facility] de Phone Number [facility] [address], [place] [address] PCLX [facility] POC [address] [place] [address] * FL Fluoro Less Than 1 Hour (04/30/2023 10:57 AM CDT) Narrative ERCP LOS RST - 04/30/2023 10:58 AM CDT This exam does not require a radiologist review or interpretation. Please refer to the patient's medical record on this date for clinical details. Amy Coley M.D. IMG FLUOROSCOPY PRO CEDURES Performing Organization Address [facility] Co de Phone Number ERCP LOS RST * Surgical Pathology (04/30/2023 10:25 AM CDT) 05/07/2023 9:44 AM CDT DTL Participated in the Interpretation Enmanuel Pino M.D.-Pathology Resident 05/07/2023 9:44 AM CDT DTL Report electronically signed by Ramon Warner M.D. I verify that I have examined all relevant slides/materials for the specimen(s) and rendered or confirmed the diagnosis. Seen in consultation with: ??Leighton Pittman M.D. 05/07/2023 9:44 AM CDT DTL Gross Description Received in formalin labeled with the patient's name, medical record number, and duodenum, third part duodenum are multiple pale [id number] irregular soft tissues, ranging from 0.3-0.5 cm in greatest dimension. Specimens are submitted en toto in cassettes A1, seven specimens and A2, eight specimens. ??Grossed by ARG. 05/07/2023 9:44 AM CDT DTL Disclaimer This test was developed using an analyte specific reagent. Its performance characteristics were determined by [facility] in a manner consistent with CLIA requirements. This test has not been cleared or approved by the U.S. Food and Drug Administration. Test results for (IHC or FRANK) testing are valid for specimens fixed between 6 and 72 hours. ??Delay to fixation, under fixation or over fixation fall outside of guidelines and may affect these results. 05/07/2023 9:44 AM CDT DTL Interpretation FINAL DIAGNOSIS Duodenum, 3rd part, endoscopic biopsy: Atypical lymphoid infiltrate with marked crush artifact, highly suspicious for B-cell lymphoma. ??See comment. Immunoperoxidase studies were performed on paraffin sections of the duodenum at [facility] in [place], [place], using antibodies directed against the following antigens: CD3, CD10, CD20, AE1/AE3, BCL2, BCL6, CMV, Ki-67, PAX5. The biopsy shows minute fragments of duodenal mucosa with an atypical lymphoid infiltrate. ??There is ulceration, acute inflammation, cellular degeneration, and marked crush artifact, all of which hamper interpretation of the morphology and immunophenotype. ??There is an atypical lymphoid infiltrate which appears viable, but is not cytologically evaluable due to the crush artifact and degenerative changes. ??These areas stain extensively for CD20, PAX5, CD10, BCL6, and BCL2, and have an apparent proliferative rate by Ki-67 of at least 60%. ??CMV is negative. ??CD3 stains T-cells in the background. ??CK AE1/AE3 is negative. COMMENT The findings are highly suspicious for a B-cell lymphoma; however, definitive diagnosis and further classification are not possible due to marked crush artifact and degenerative changes. ??If clinically indicated, another biopsy is recommended to further characterize this process, in addition to evaluation for evidence of disease at other anatomic sites. 05/07/2023 9:44 AM CDT DTL Biopsy (Duodenum) 04/30/2023 10:25 AM CDT Ricardo Saucedo M.D. LAB SURG PATH ORDERA BLES Performing Organization Address [facility]/ZIP Co de Phone Number [facility] [facility] [address] [place] [address], [facility] DTL 200 [facility] [address] [place] [address] * Glucose, POCT (04/30/2023 9:26 AM CDT) Glucose, POCT, B 78 70 - 140 mg/dL 04/30/2023 9:46 AM CDT PCLX Site Capillary 04/30/2023 9:46 AM CDT PCLX Blood 04/30/2023 9:26 AM CDT 04/30/2023 9:46 AM CDT Unknown Provider LAB POCT ORDERABLES- MANUAL Performing Organization Address City/[facility] Co de Phone Number POC [facility] [address] [place] [address], [facility] PCLX [facility] POC [address] [place] [address] * Small Bowel Enteroscopy (04/30/2023 9:17 AM CDT) 04/30/2023 9:17 AM CDT Impressions [facility] - 04/30/2023 11:12 AM CDT Post-op Diagnoses: ? - Normal esophagus. ? - Normal stomach. ? - Duodenal mass as described in detail and extensively photo-documented. ? Biopsied. ? - The duodenal downstream from the stricture and the examined portion of ? the jejunum were normal. ? - Feeding tube placement in the jejunum was successfully performed using ? endoscopic and fluoroscopic guidance as described. Narrative [facility] - 04/30/2023 11:12 AM CDT [facility] 6 GI GI Patient Name: Hola Lau Date of : 1950 Age: 72 Gender: Male Procedure Date: 04/30/2023 Procedure: ? Small bowel enteroscopy, biopsies, and J-tube ? placement, fluoro < 1 hr Providers: ? Ricardo Saucedo MD Referring Provider: ?Amy Coley Pre-op Diagnoses: ?Abnormal abdominal CT, Persistent vomiting, Weight ? loss Recommendation: ? - Return patient [facility] for [facility]. ? - Await pathology results. ? - NJ tube position is fluoroscopically confirmed. The tube may be used ? immediately, following nutrition support service recommendations. Findings: ? The examined esophagus was normal. ? The entire examined stomach was normal. ? The cardia and gastric fundus were normal on retroflexion. ? A large circumferential infiltrative and ulcerated mass with no bleeding ? was found in the third portion of the duodenum as extensively ? photo-documented. The stricture was in the proximal 3rd portion of the ? duodenal, and was approximately 5 cm in axial length. Biopsies were ? taken with a cold forceps for histology. Verification of patient ? identification for the specimen was done by the physician and nurse ? using the patient's name, date and medical record number. ? Estimated blood loss was minimal. I was able to traverse the stricture ? with the 9.7 mm in diameter scope with minimal resistance. The duodenal ? and proximal jejunum downstream from the stricture were normal. ? There was no evidence of significant pathology in the proximal jejunum. ? A guide wire was inserted into the jejunum approximately 40 cm ? downstream from the ligament of Treitz under fluoroscopic guidance, and ? the endoscope was removed. A 12 Fr nasojejunal tube was advanced over ? the guide wire into the jejunum, with its tip verified fluoroscopically ? to be 20 cm downstream from the ligament of Treitz. Placement was ? confirmed by fluoroscopy. Procedural Details: ? The patient [...] oxygen saturations ? were monitored continuously. The Pediatric Colonoscope was introduced ? under direct vision through the mouth and advanced to small bowel distal ? to the Ligament of Treitz. The small bowel enteroscopy was accomplished ? without difficulty. The patient tolerated the procedure [...] performed the entire procedure. Ricardo Saucedo MD 04/30/2023 11:12:04 AM This report has been signed electronically. Number of Addenda: 0 Amy Coley M.D. GI PROCEDURE [facility] [employer] [facility] [employer] NA * Glucose, POCT (04/30/2023 7:36 AM CDT) Glucose, POCT, B 78 70 - 140 mg/dL 04/30/2023 7:40 AM CDT PCLX Site Capillary 04/30/2023 7:40 AM CDT PCLX Last Intake > 4 hours 04/30/2023 7:40 AM CDT PCLX Blood 04/30/2023 7:36 AM CDT 04/30/2023 7:40 AM CDT Unknown Provider LAB POCT ORDERABLES- MANUAL Performing Organization Address City/[facility]/ZIP Co de Phone Number POC [facility] [address] [place] [address], [facility] PCLX [facility] POC [address] [place] [address] * Phosphorus Inorganic (04/30/2023 5:10 AM CDT) Phosphorus (Inorganic), S 2.7 2.5 - 4.5 mg/dL 04/30/2023 6:13 AM CDT DTL Blood (Blood, Venous) 04/30/2023 5:10 AM CDT 04/30/2023 5:53 AM CDT Aleida Elmore M.D. LAB BLOOD ADD-ON Performing Organization Address City/[facility] Co de Phone Number [facility] [address], [place] [address] [place] [address] 200 [place] [address] * (ABNORMAL) Magnesium (04/30/2023 5:10 AM CDT) Magnesium, S 1.6(L) 1.7 - 2.3 mg/dL 04/30/2023 6:13 AM CDT DTL Blood (Blood, Venous) 04/30/2023 5:10 AM CDT 04/30/2023 5:53 AM CDT Aleida Elmore M.D. LAB BLOOD ADD-ON Performing Organization Address City/[facility]/ZIP Co de Phone Number [facility] [address], [place] [id number] [place] [address] 200 [place] [address] * (ABNORMAL) Comprehensive Metabolic Panel (04/30/2023 5:10 AM CDT) Potassium, S 3.9 3.6 - 5.2 mmol/L 04/30/2023 6:13 AM CDT DTL Sodium, S 143 135 - 145 mmol/L 04/30/2023 6:13 AM CDT DTL Chloride, S 111(H) 98 - 107 mmol/L 04/30/2023 6:13 AM CDT DTL Bicarbonate, S 19(L) 22 - 29 mmol/L 04/30/2023 6:13 AM CDT DTL Anion Gap 13 7 - 15 04/30/2023 6:13 AM CDT DTL BUN (Blood Urea Nitrogen), S 18 8 - 24 mg/dL 04/30/2023 6:13 AM CDT DTL Creatinine 1.39(H) 0.74 - 1.35 mg/dL 04/30/2023 6:13 AM CDT DTL Estimated GFR (eGFR) 53(L) >=60 mL/min/BS A 04/30/2023 6:13 AM CDT DTL Comment: Estimated GFR calculated using the 2020 CKD_EPI creatinine equation. Calcium, Total, S 7.4(L) 8.8 - 10.2 mg/dL 04/30/2023 6:13 AM CDT DTL Glucose, S 80 70 - 140 mg/dL 04/30/2023 6:13 AM CDT DTL Protein, Total, S 4.9(L) 6.3 - 7.9 g/dL 04/30/2023 6:13 AM CDT DTL Albumin, S 3.1(L) 3.5 - 5.0 g/dL 04/30/2023 6:13 AM CDT DTL Aspartate Aminotransferase (AST), S 29 8 - 48 U/L 04/30/2023 6:13 AM CDT DTL Alkaline Phosphatase, S 169(H) 40 - 129 U/L 04/30/2023 6:13 AM CDT DTL Alanine Aminotransferase (ALT), S 31 7 - 55 U/L 04/30/2023 6:13 AM CDT DTL Bilirubin, Total, S 0.2 <=1.2 mg/dL 04/30/2023 6:13 AM CDT DTL Blood (Blood, Venous) 04/30/2023 5:10 AM CDT 04/30/2023 5:53 AM CDT Aleida Elmore M.D. LAB BLOOD ADD-ON [facility] [address] [place] [address], [facility] DTL [facility] [address] [place] [address] * (ABNORMAL) CBC with Differential, Blood (04/30/2023 5:10 AM CDT) Hemoglobin 7.7(L) 13.2 - 16.6 g/dL 04/30/2023 5:52 AM CDT DTL Hematocrit 26.4(L) 38.3 - 48.6 % 04/30/2023 5:52 AM CDT DTL Erythrocytes 3.30(L) 4.35 - 5.65 x10(12)/L 04/30/2023 5:52 AM CDT DTL MCV 80.0 78.2 - 97.9 fL 04/30/2023 5:52 AM CDT DTL RBC Distrib Width 17.4(H) 11.8 - 14.5 % 04/30/2023 5:52 AM CDT DTL Platelet Count 201 135 - 317 x10(9)/L 04/30/2023 5:52 AM CDT DTL Leukocytes 4.6 3.4 - 9.6 x10(9)/L 04/30/2023 5:52 AM CDT DTL Neutrophils 3.09 1.56 - 6.45 x10(9)/L 04/30/2023 5:52 AM CDT DHPM Lymphocytes 0.71(L) 0.95 - 3.07 x10(9)/L 04/30/2023 5:52 AM CDT DTL Monocytes 0.49 0.26 - 0.81 x10(9)/L 04/30/2023 5:52 AM CDT DTL Eosinophils 0.29 0.03 - 0.48 x10(9)/L 04/30/2023 5:52 AM CDT DTL Basophils 0.04 0.01 - 0.08 x10(9)/L 04/30/2023 5:52 AM CDT DTL Blood (Blood, Venous) 04/30/2023 5:10 AM CDT 04/30/2023 5:40 AM CDT Aleida Elmore M.D. LAB BLOOD ADD-ON [facility] [address] [place] [address], [facility] DTL [facility] [address] [place] [address] [facility] [address] [place] [address] * Lactate (04/29/2023 9:58 PM CDT) [facility] Lactate, P 0.9 0.5 - 2.2 mmol/L 04/29/2023 10:17 PM CDT [facility] Blood (Blood, Venous) 04/29/2023 9:58 PM CDT 04/29/2023 10:[address] Hassan M.D., M.S. LAB BLOOD NON ADD-ON Performing Organization Address City/[facility]/ZIP Co de Phone Number [facility] [address] [place] [address], [facility] STMA [facility] [address] [place] [address] * Lactate, POCT (04/29/2023 6:10 PM CDT) [facility] Lactate, POCT 1.01 0.50 - 2.20 mmol/L 04/29/2023 6:23 PM CDT PCLX Blood (Blood, Venous) 04/29/2023 6:10 PM CDT 04/29/2023 6:[address] Hassan M.D., M.S. LAB POCT O RDERABLES - DEVICE POC [facility] [address] [place] [address], [facility] PCLX [facility] POC [address] [place] [address] * Bacteria / Joel Culture, Blood # 2 (04/29/2023 6:09 PM CDT) Bacteria/Torrie da Culture, Blood No growth after 5 days of incubation. 05/04/2023 7:02 PM CDT DTL Blood (Blood, Peripheral Draw) 04/29/2023 6:09 PM CDT 04/29/2023 6:48 PM CDT Comment:Specimen Source Site : Blood Ct Hassan M.D., M.S. LAB MICROB IOLOGY - GENERAL ORDERABLES Performing Organization Address [facility] de Phone Number [facility] [address] [place] [address] * Bacteria / Joel Culture, Blood #1 (04/29/2023 6:09 PM CDT) Bacteria/Torrie da Culture, Blood No growth after 5 days of incubation. 05/04/2023 7:02 PM CDT DT Blood (Blood, Peripheral Draw) 04/29/2023 6:09 PM CDT 04/29/2023 6:49 PM CDT Comment:Specimen Source Site : Blood Ct Hassan M.D., M.S. LAB MICROB IOLOGY - GENERAL ORDERABLES Performing Organization Address [facility] de Phone Number [facility] [address] [place] [address] * Lipase (04/29/2023 6:09 PM CDT) Lipase, S 22 13 - 60 U/L 04/29/2023 6: 58 PM CDT DT Blood (Blood, Venous) 04/29/2023 6:09 PM CDT 04/29/2023 6:[address] Hassan M.D., M.S. LAB BLOOD ADD-ON [facility] [address] [place] [address], [facility] [address] [place] [address] * (ABNORMAL) Hepatic Function Panel (04/29/2023 6:09 PM CDT) Bilirubin, Total, S 0.3 <=1.2 mg/dL 04/29/2023 6:58 PM CDT DTL Bilirubin, Direct, S <0.2 0.0 - 0.3 mg/dL 04/29/2023 6:58 PM CDT DTL Aspartate Aminotransferase (AST), S 32 8 - 48 U/L 04/29/2023 6:58 PM CDT DTL Alanine Aminotransferase (ALT), S 36 7 - 55 U/L 04/29/2023 6:58 PM CDT DTL Alkaline Phosphatase, S 188(H) 40 - 129 U/L 04/29/2023 6:58 PM CDT DTL Albumin, S 3.3(L) 3.5 - 5.0 g/dL 04/29/2023 6:58 PM CDT DTL Protein, Total, S 5.4(L) 6.3 - 7.9 g/dL 04/29/2023 6:58 PM CDT DTL Blood (Blood, Venous) 04/29/2023 6:09 PM CDT 04/29/2023 6:[address] Hassan M.D., M.S. LAB BLOOD ADD-ON [facility] [address] [place] [address], [facility] [address] [place] [address] * S-TSH (Thyroid-Stimulating Hormone - Sensitive) (04/29/2023 6:09 PM CDT) TSH, Sensitive 3.9 0.3 - 4.2 mIU/L 04/29/2023 6:58 PM CDT DTL Blood (Blood, Venous) 04/29/2023 6:09 PM CDT 04/29/2023 6:[address] Hassan M.D., M.S. LAB BLOOD ADD-ON Performing Organization Address City/[facility] Co de Phone Number [facility] [address] [place] [address], [facility] DTL [facility] [address] [place] [address] * (ABNORMAL) Prothrombin Time (PT) (04/29/2023 6:09 PM CDT) Prothrombin Time, P 13.0(H) 9.4 - 12.5 sec 04/29/2023 6:27 PM CDT STMA INR 1.2 0.9 - 1.1 04/29/2023 6:27 PM CDT STMA Comment: ----ADDITIONAL INFORMATION---- Standard intensity warfarin therapeutic range: 2.0 to 3.0 ?? High intensity warfarin therapeutic range: 2.5 to 3.5 Blood (Blood, Venous) 04/29/2023 6:09 PM CDT 04/29/2023 6:[address] Hassan M.D., M.S. LAB BLOOD ADD-ON Performing Organization Address [facility] Co de Phone Number [facility] [address] [place] [address], [facility] STMA [facility] [address] [place] [address] * (ABNORMAL) Basic Metabolic Panel (04/29/2023 6:09 PM CDT) Potassium, P 3.2(L) 3.6 - 5.2 mmol/L 04/29/2023 6:34 PM CDT STMA Sodium, P 140 135 - 145 mmol/L 04/29/2023 6:34 PM CDT STMA Chloride, P 106 98 - 107 mmol/L 04/29/2023 6:34 PM CDT STMA Bicarbonate, P 22 22 - 29 mmol/L 04/29/2023 6:34 PM CDT STMA Anion Gap, P 12 7 - 15 04/29/2023 6:34 PM CDT STMA BUN (Blood Urea Nitrogen), P 21 8 - 24 mg/dL 04/29/2023 6:34 PM CDT STMA Creatinine 1.60(H) 0.74 - 1.35 mg/dL 04/29/2023 6:34 PM CDT STMA Estimated GFR (eGFR) 45(L) >=60 mL/min/BSA 04/29/2023 6:34 PM CDT STMA Comment: Estimated GFR calculated using the 2020 CKD_EPI creatinine equation. Calcium, Total, P 7.6(L) 8.8 - 10.2 mg/dL 04/29/2023 6:34 PM CDT STMA Glucose, P 88 70 - 140 mg/dL 04/29/2023 6:34 PM CDT STMA Blood (Blood, Venous) 04/29/2023 6:09 PM CDT 04/29/2023 6:[address] Hassan M.D., M.S. LAB BLOOD ADD-ON [facility] [address] [place] [address], [facility] [address] [place] [address] * (ABNORMAL) CBC with Differential, Blood (04/29/2023 6:09 PM CDT) Hemoglobin 7.9(L) 13.2 - 16.6 g/dL 04/29/2023 6:20 PM CDT STMA Hematocrit 26.5(L) 38.3 - 48.6 % 04/29/2023 6:20 PM CDT STMA Erythrocytes 3.30(L) 4.35 - 5.65 x10(12)/L 04/29/2023 6:20 PM CDT STMA MCV 80.3 78.2 - 97.9 fL 04/29/2023 6:20 PM CDT STMA RBC Distrib Width 17.2(H) 11.8 - 14.5 % 04/29/2023 6:20 PM CDT STMA Platelet Count 191 135 - 317 x10(9)/L 04/29/2023 6:20 PM CDT STMA Leukocytes 4.4 3.4 - 9.6 x10(9)/L 04/29/2023 6:20 PM CDT STMA Neutrophils 2.79 1.56 - 6.45 x10(9)/L 04/29/2023 6:20 PM CDT DHPM Lymphocytes 0.87(L) 0.95 - 3.07 x10(9)/L 04/29/2023 6:20 PM CDT STMA Monocytes 0.42 0.26 - 0.81 x10(9)/L 04/29/2023 6:20 PM CDT STMA Eosinophils 0.25 0.03 - 0.48 x10(9)/L 04/29/2023 6:20 PM CDT STMA Basophils 0.03 0.01 - 0.08 x10(9)/L 04/29/2023 6:20 PM CDT STMA Blood (Blood, Venous) 04/29/2023 6:09 PM CDT 04/29/2023 6:[address] Hassan M.D., M.S. LAB BLOOD ADD-ON [facility] [address] [place] [address], [facility] STMA [facility] [address] [place] [address] DHPM [facility] [address] [place] [address] * CT Abdomen Pelvis with IV Contrast (04/29/2023 5:28 PM CDT) Anatomical Region Laterality Modality Abdomen, Pelvis, Abdominal R ST LOS, Abdominal ARZ LOS, Abdominal FLA LOS N/A Computed Tomograp hy, Computed Tomography 04/29/2023 5:25 PM CDT Impressions 04/29/2023 6:34 PM CDT 1. 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 Differential includes infection/inflammation, although considered less likely. Endoscopic evaluation and sampling recommended. 2. Indeterminate subcapsular splenic lesion. 3. Bladder wall thickening is somewhat asymmetric. Correlation with prior imaging versus cystoscopy recommended. Narrative 04/29/2023 6:34 PM CDT EXAM: ??CT ABDOMEN PELVIS WITH IV CONTRAST COMPARISON: ??Outside CT abdomen pelvis with IV contrast 04/22/2023 FINDINGS: ?? Heterogenous asymmetric mural thickening and stranding with associated luminal narrowing about the 3rd segment duodenum. Possible ulceration. Multiple adjacent enlarged lymph nodes. For example, outside dealer sales representative mid abdominal mesenteric lymph nodes measuring 21 x 19 mm (series 3, image 76) and 17 x 21 mm (series 3, image 56) and a outside dealer sales representative aortocaval node measuring 19 x 16 mm (series 3, image 51). Decompressed stomach. Otherwise, normal caliber small bowel and colon. Normal appendix. Fatty infiltration of the pancreas with no main pancreatic ductal dilatation. Mildly dilated gallbladder. Enlarged spleen measuring 16.1 cm. 1.9 x 1.1 cm hypoattenuating subcapsular splenic lesion (4/71). Negative adrenal glands. No hydronephrosis. Bladder wall trabeculations and thickening, slightly asymmetric. Normal caliber abdominal aorta with diffuse calcified atherosclerosis. Portal veins are patent. Mesenteric edema. Degenerative change of the spine with anterior wedging of multiple thoracic vertebrae and grade 1 anterolisthesis of L4 on L5. Peripheral reticulation in the bilateral lung bases which may be seen in scarring/fibrosis. Partially visualized pulmonary nodules such as a 6 mm nodule in the left lower lobe have not significantly changed. Aortic and mitral annular calcifications. Procedure Note Td Pineda M.D., M.S. - 04/29/2023 EXAM: CT ABDOMEN PELVIS WITH IV CONTRAST COMPARISON: Outside CT abdomen pelvis with IV contrast 04/22/2023 FINDINGS: Heterogenous asymmetric mural thickening and stranding with associatedluminal narrowing about the 3rd segment duodenum. Possible ulceration. Multiple adjacent enlargedlymph nodes. For example, outside dealer sales representative mid abdominal mesenteric lymph nodes measuring 21 x 19 mm(series 3, image 76) and 17 x 21 mm (series 3, image 56) and a outside dealer sales representative aortocaval nodemeasuring 19 x 16 mm (series 3, image 51). Decompressed stomach. Otherwise, normal caliber small bowel andcolon. Normal appendix. Fatty infiltration of the pancreas with no main pancreatic ductaldilatation. Mildly dilated gallbladder. Enlarged spleen measuring 16.1 cm. 1.9 x 1.1 cmhypoattenuating subcapsular splenic lesion (4/71). Negative adrenal glands. No hydronephrosis. Bladder walltrabeculations and thickening, slightly asymmetric. Normal caliber abdominal aorta withdiffuse calcified atherosclerosis. Portal veins are patent. Mesenteric edema. Degenerative change of the spine with anterior wedging of multiplethoracic vertebrae and grade 1 anterolisthesis of L4 on L5. Peripheral reticulation in the bilateral lung bases which may be seen inscarring/fibrosis. Partially visualized pulmonary nodules such as a 6 mm nodule in the leftlower lobe have not significantly changed. Aortic and mitral annular calcifications. IMPRESSION: 1. 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 Differential includes infection/inflammation, although considered less likely. Endoscopicevaluation and sampling recommended. 2. Indeterminate subcapsular splenic lesion. 3. Bladder wall thickening is somewhat asymmetric. Correlation with priorimaging versus cystoscopy recommended. Ct Hassan M.D., M.S. IMG CT PRO CEDURES * (ABNORMAL) Creatinine, POCT (04/29/2023 5:19 PM CDT) Creatinine, POCT, B 1.7(H) 0.7 - 1.4 mg/dL 04/29/2023 5:25 PM CDT PCDT Comment: ----ADDITIONAL INFORMATION---- Performed at the Point of Care Blood 04/29/2023 5:19 PM CDT 04/29/2023 5:25 PM CDT Unknown Provider LAB POCT ORDERABLES - DEVICE POC [facility] [address] [place] [address], [facility] PCDT [facility] POC [address] [place] [address] * (ABNORMAL) Creatinine, POCT (04/29/2023 5:19 PM CDT) Estimated GFR (eGFR), POCT 42(L) >=60 mL/min/BSA 04/29/2023 5:25 PM CDT PCED Comment: Estimated GFR calculated using the 2020 CKD_EPI creatinine equation. 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) documented in this encounter Admitting Diagnoses Diagnosis Nausea And Vomiting documented in this encounter Administered Medications Inactive Administered Medications - up to 3 most recent administrations Medication Order MAR Action Action Date Dose Rate Site acetaminophen tablet 500 mg (TYLENOL) 500 mg, small bowel tube, Every 6 hours PRN, mild pain or score 1-3 of 10, moderate pain or score 4-6 of 10, Starting on Sat05/02/23 at 1221 allopurinoL tablet 300 mg (ZYLOPRIM) 300 mg, small bowel tube, Daily, First dose (after last modification) on Sat05/01/23 at 0900 Given 05/07/2023 8:27 AM CDT 300 mg Given 05/04/2023 8:34 AM CDT 300 mg Given 05/03/2023 8:18 AM CDT 300 mg aspirin chewable tablet 81 mg 81 mg, small bowel tube, Daily, First dose (after last modification) on Sat05/01/23 at 0945 Given 05/07/2023 8:28 AM CDT 81 mg Given 05/04/2023 8:34 AM CDT 81 mg Given 05/03/2023 8:18 AM CDT 81 mg atorvastatin tablet 20 mg (LIPITOR) 20 mg, small bowel tube, Daily at bedtime, First dose (after last modification) on Sat04/30/23 at 2100, atorvaSTATin 20 mg oral daily was interchanged for simvastatin 5-40 mg oral daily Given 05/06/2023 9:37 PM CDT 20 mg Given 05/04/2023 9:37 PM CDT 20 mg Given 05/03/2023 8:08 PM CDT 20 mg dextrose 40 % gel 15 g (GLUTOSE) 15 g, oral, As needed, low blood sugar, For glucose 51-70 mg/dL, Starting on Sat04/30/23 at 1201, If patient is conscious and able to swallow safely and has a fuctioning gastrointestinal tract or on Acarbose (Precose??) or Miglitol (Glyset??). May use tablets or gel. dextrose 50 % injection 12.5 g 12.5 g, intravenous, As needed, low blood sugar, For glucose 51-70 mg/dL, Starting on Sat04/30/23 at 1201, If the patient has intravenous access available, is not able to take oral feeding safely, does not have a functioning gastrointestinal tract or feeding tube, or is NPO, administer D50W intravenously. dextrose 50 % injection 25 g 25 g, intravenous, As needed, low blood sugar, For glucose less than 50 mg/dL, Starting on Sat04/30/23 at 1201, If intravenous access is available, administer D50W intravenously enoxaparin injection 40 mg (LOVENOX) 40 mg, subcutaneous, Daily, First dose on Sat05/01/23 at 0900 Given 05/07/2023 8:28 AM CDT 40 mg Left Upper Arm (Back) Given 05/06/2023 8:36 AM CDT 40 mg Le ft Upper Arm (Back) Given 05/05/2023 9:04 AM CDT 40 mg Le ft Upper Arm (Back) glucose chewable tablet 16 g 16 g, oral, As needed, low blood sugar, For glucose 51-70 mg/dL, Starting on Sat04/30/23 at 1201, If patient is conscious and able to swallow safely and has a functioning gastrointestinal tract or on Acarbose (Precose??) or Miglitol (Glyset??). Administer 4 tablets to total 16 grams. May use tablets or gel. Given 04/30/2023 5:55 PM CDT 16 g insulin aspart U-100 injection 0-13 Units (NovoLOG FlexPen) 0-13 Units, subcutaneous, 3 times daily, First dose on Sat04/30/23 at 0800, Insulin Scale: Moderate Correction Scale, 140 - 179: 2 units, 180 - 219: 4 units, 220 - 259: 6 units, 260 - 299: 8 units, 300 - 339: 10 units, 340 - 379: 12 units, 380 - 399: 13 units, Greater than 399: Call service writing Insulin orders Given 05/07/2023 8:31 AM CDT 4 Units Left Upper Arm (Back) Given 05/04/2023 5:32 PM CDT 2 Units Le ft Upper Arm (Back) iohexoL 300 mg iodine/mL solution (OMNIPAQUE) As needed, Starting on Genie 05/02/23 at 1236, Intra-Op Given 05/02/2023 12:36 PM CDT 10 mL Small Bowel iohexoL 300 mg iodine/mL solution 1-200 mL (OMNIPAQUE) 1-200 mL, intravenous, Once in imaging, contrast, Starting on Sat04/29/23 at 1720, For 1 dose, Imaging Protocol Orders, Dose per Radiant Medication Guidelines Given 04/29/2023 5:23 PM CDT 140 mL ipratropium 21 mcg (0.03 %) nasal spray 2 spray (ATROVENT) 2 spray, each nostril, 2 times daily PRN, rhinitis, For post-nasal drip, Starting on Sat04/30/23 at 1740 iron dextran 25 mg of iron in NaCl 0.9% IVPB (INFED) 25 mg of iron, intravenous, at 606 mL/hr, Administer over 5 Minutes, Once, On Sat04/30/23 at 1600, For 1 dose New Bag 04/30/2023 4:56 PM CDT 25 mg of iron 606 mL/hr iron dextran 975 mg of iron in NaCl 0.9% IVPB (INFED) 975 mg of iron, intravenous, at 120 mL/hr, Administer over 60 Minutes, Once, On Sat04/30/23 at 1630, For 1 dose, If no reaction 30 min after 25 mg test dose. New Bag 04/30/2023 5:15 PM CDT 975 mg of iron 120 mL/hr Lactated Ringer's bolus 2,000 mL 2,000 mL, intravenous, at 250 mL/hr, Administer over 8 Hours, Once, On Sat05/05/23 at 1115, For 1 dose New Bag 05/05/2023 1:12 PM CDT 2,000 mL 250 mL/hr Lactated Ringer's bolus 2,000 mL 2,000 mL, intravenous, at 250 mL/hr, Administer over 8 Hours, Once, On Sat05/06/23 at 0630, For 1 dose, Can discontinue when NJ tube replaced New Bag 05/06/2023 8:35 AM CDT 2,000 mL 250 mL/hr lansoprazole suspension 30 mg (PREVACID) 30 mg, small bowel tube, Daily before breakfast, First dose (after last modification) on Sat05/03/23 at 0700 Given 05/07/2023 8:27 AM CDT 30 mg Given 05/05/2023 6:18 AM CDT 30 mg Given 05/04/2023 6:17 AM CDT 30 mg levothyroxine tablet 112 mcg (SYNTHROID, LEVOTHROID) 112 mcg, small bowel tube, 3 times weekly (Once per day on Sat), First dose (after last modification) on Sat05/02/23 at 0700 Given 05/07/2023 8:34 AM CDT 112 mcg Given 05/05/2023 6:19 AM CDT 112 mcg levothyroxine tablet 224 mcg (SYNTHROID, LEVOTHROID) 224 mcg, small bowel tube, 4 times weekly (Once per day on Sat), First dose (after last modification) on Sat05/01/23 at 0700 Given 05/04/2023 6:17 AM CDT 224 mcg Given 05/03/2023 6:02 AM CDT 224 mcg Given 05/01/2023 9:14 AM CDT 224 mcg magnesium sulfate in D5W IVPB 1 g 1 g, intravenous, at 100 mL/hr, Administer over 60 Minutes, Once, On Sat05/01/23 at 1045, For 1 dose, Over 1 hours. New Bag 05/01/2023 11:19 AM CDT 1 g 100 mL/hr magnesium sulfate in water IVPB 2 g 2 g, intravenous, at 25 mL/hr, Administer over 120 Minutes, Once, On Sat04/30/23 at 1145, For 1 dose, Over 2 hours. New Bag 04/30/2023 12:56 PM CDT 2 g 25 mL/hr magnesium sulfate in water IVPB 2 g 2 g, intravenous, at 25 mL/hr, Administer over 120 Minutes, Once, On Sat05/04/23 at 1100, For 1 dose, Over 2 hours. New Bag 05/04/2023 12:02 PM CDT 2 g 25 mL/hr magnesium sulfate in water IVPB 2 g 2 g, intravenous, at 25 mL/hr, Administer over 120 Minutes, Once, On Sat05/05/23 at 0645, For 1 dose, Over 2 hours. New Bag 05/05/2023 9:04 AM CDT 2 g 25 mL/hr magnesium sulfate in water IVPB 2 g 2 g, intravenous, at 25 mL/hr, Administer over 120 Minutes, Once, On Sat05/07/23 at 0700, For 1 dose, Over 2 hours. New Bag 05/07/2023 1:26 PM CDT 2 g 25 mL/hr melatonin liquid 5 mg 5 mg, small bowel tube, Daily at bedtime, First dose (after last modification) on Sat05/02/23 at 2100 Given 05/06/2023 9:37 PM CDT 5 mg Given 05/04/2023 9:37 PM CDT 5 mg Given 05/03/2023 8:08 PM CDT 5 mg multivitamin/mineral- tablet 1 tablet 1 tablet, small bowel tube, Daily, First dose on Sat05/01/23 at 0900 Given 05/07/2023 8:28 AM CDT 1 tablet Given 05/04/2023 8:34 AM CDT 1 tablet Given 05/03/2023 8:18 AM CDT 1 tablet NaCl 0.9 % bolus 1,000 mL 1,000 mL, intravenous, at 1,000 mL/hr, Administer over 1 Hours, Once, On Sat04/29/23 at 1732, For 1 dose New 04/29/2023 5:43 PM CDT 1,000 mL 1000 mL/hr NaCl 0.9 % bolus 1,000 mL 1,000 mL, intravenous, at 1,000 mL/hr, Administer over 1 Hours, Once, On Sat04/29/23 at 1740, For 1 dose New Bag 04/29/2023 4:40 PM CDT 1,000 mL 1000 mL/hr ondansetron ODT disintegrating tablet 4 mg (ZOFRAN-ODT) 4 mg, oral, Every 6 hours PRN, nausea, vomiting, Starting on Sat04/29/23 at 2226, When splitting ODT at bedside, handle with gloves and a pill splitter to prevent moisture contact. Given 05/01/2023 10:10 PM CDT 4 mg ondansetron ODT disintegrating tablet 8 mg (ZOFRAN-ODT) 8 mg, oral, Once, On Sat05/03/23 at 1700, For 1 dose, When splitting ODT at bedside, handle with gloves and a pill splitter to prevent moisture contact. Given 05/03/2023 5:27 PM CDT 8 mg ondansetron ODT disintegrating tablet 8 mg (ZOFRAN-ODT) 8 mg, oral, Every 8 hours PRN, nausea, vomiting, Starting on 05/04/23 at 0421, When splitting ODT at bedside, handle with gloves and a pill splitter to prevent moisture contact. Given 05/07/2023 8:27 AM CDT 8 mg Given 05/05/2023 6:35 PM CDT 8 mg Given 05/04/2023 11:53 PM CDT 8 mg polyethylene glycol powder packet 17 g (MIRALAX) 17 g, small bowel tube, 2 times daily, First dose (after last modification) on 05/04/23 at 0900, Ordered sequence of administration: polyethylene glycol, then bisacodyl until BM achieved. Avoid mixing with starch-based thickened liquids. Given 05/07/2023 8:27 AM CDT 17 g Given 05/04/2023 9:37 PM CDT 17 g Given 05/04/2023 8:34 AM CDT 17 g potassium chloride ER tablet 60 mEq (KLORCON/K-TAB) 60 mEq, oral, Once, On 04/29/23 at 2245, For 1 dose, Swallow whole. Do NOT crush, chew, or split tablet. Given 04/29/2023 11:02 PM CDT 60 mEq potassium phosphates 15 mmol in NaCl 0.9% IVPB 15 mmol (rounded from 21.825 mmol = 0.25 mmol/kg ? 87.3 kg Dosing weight), intravenous, at 116 mL/hr, Administer over 2.2 Hours, Once, On Sat05/01/23 at 0715, For 1 dose, Peripheral Line: Administrater at 6.8 mmoL phosphate/hr, Monitor the following for replacement: Phosphorus New Bag 05/01/2023 9:00 AM CDT 15 mmol 116 mL/hr potassium phosphates 15 mmol in NaCl 0.9% IVPB 15 mmol (rounded from 21.825 mmol = 0.25 mmol/kg ? 87.3 kg Dosing weight), intravenous, at 116 mL/hr, Administer over 2.2 Hours, Once, On Genie 05/02/23 at 0700, For 1 dose, Peripheral Line: Administrater at 6.8 mmoL phosphate/hr, Monitor the following for replacement: Phosphorus Restarted 05/02/2023 9:03 AM CDT 116 mL/hr New Bag 05/02/2023 7:42 AM CDT 15 mmol 116 mL/hr prochlorperazine injection 5 mg (COMPAZINE) 5 mg, intravenous, Every 6 hours PRN, nausea, vomiting, if unrelieved by zofran, Starting on Sat05/03/23 at 1410 Given 05/06/2023 5:23 AM CDT 5 mg Given 05/05/2023 11:44 PM CDT 5 mg Given 05/05/2023 3:58 AM CDT 5 mg sennosides-docusate sodium 8.6-50 mg per tablet 1 tablet (SENOKOT-S) 1 tablet, small bowel tube, 2 times daily, First dose (after last modification) on Sat04/30/23 at 2100, Do not give if patient has diarrhea. Given 05/03/2023 8:08 PM CDT 1 tablet Given 05/03/2023 8:18 AM CDT 1 tablet Given 05/01/2023 9:02 AM CDT 1 tablet sennosides-docusate sodium 8.6-50 mg per tablet 2 tablet (SENOKOT-S) 2 tablet, small bowel tube, 2 times daily, First dose (after last modification) on 05/04/23 at 0900, Do not give if patient has diarrhea. Given 05/07/2023 8:28 AM CDT 2 tablets Given 05/04/2023 9:37 PM CDT 2 tablets Given 05/04/2023 8:34 AM CDT 2 tablets sodium chloride (PF) 0.9 % injection 1-100 mL 1-100 mL, intravenous, Once, On 04/29/23 at 1721, For 1 dose, Imaging Protocol Orders Given 04/29/2023 5:23 PM CDT 50 mL thiamine injection 100 mg (VITAMIN B1) 100 mg, intravenous, Once, On Sat04/30/23 at 1415, For 1 dose Given 04/30/2023 7:29 PM CDT 100 mg traZODone tablet 50 mg (DESYREL) 50 mg, small bowel tube, Bedtime PRN, sleep, Starting on Sat05/01/23 at 2218 Given 05/06/2023 9:40 PM CDT 50 mg documented in this encounter Active and Recently Administered Medications Times are shown in CDT. Scheduled Medication Order 05/05/2023 05/06/2023 05/07/2023 allopurinoL tablet 300 mg (ZYLOPRIM) 300 mg, small bowel tube, Daily, First dose (after last modification) on Sat05/01/23 at 0900 1009 (Not Given - Provider: Carmelina Long R.N. - Reason: Other - Comment: Patient NJ came out, waiting for new tube to be placed)171 (Held by provider - Provider: Emmett Santos M.D. - Comment: No NJ tube) 0900 (Not Given - Provider: Aaliyah Funk R.N. - Reason: See Provider Order)1743 (Unheld by provider - Provider: Kenia Bhandari M.D.) 0827 (Given - Provider: Delfina Wayne R.N.) aspirin chewable tablet 81 mg 81 mg, small bowel tube, Daily, First dose (after last modification) on Sat05/01/23 at 0945 1010 (Not Given - Provider: Carmelina Long R.N. - Reason: Other - Comment: Patient NJ came out, waiting for new tube to be placed)171 (Held by provider - Provider: Emmett Santos M.D. - Comment: No NJ tube) 0900 (Not Given - Provider: Aaliyah Funk R.N. - Reason: See Provider Order)174 (Unheld by provider - Provider: Kenia Bhandari M.D.) 0828 (Given - Provider: Delfina Wayne R.N.) atorvastatin tablet 20 mg (LIPITOR) 20 mg, small bowel tube, Daily at bedtime, First dose (after last modification) on Sat04/30/23 at 2100, atorvaSTATin 20 mg oral daily was interchanged for simvastatin 5-40 mg oral daily 1716 (Held by provider - Provider: Emmett Santos M.D. - Comment: No NJ tube in)2100 (Dose Auto Held - Provider: Emmett Snatos M.D.) 1743 (Unheld by provider - Provider: Kenia Bhandari M.D.)213 (Given - Provider: Sj DasNJohanna) enoxaparin injection 40 mg (LOVENOX) 40 mg, subcutaneous, Daily, First dose on Sat05/01/23 at 0900 0904 (Given - Provider: Carmelina Long R.N.) 0836 (Given - Provider: Aaliyah Funk RJohannaNJohanna) 0828 (Given - Provider: Delfina Wayne R.N.) insulin aspart U-100 injection 0-13 Units (NovoLOG FlexPen) 0-13 Units, subcutaneous, 3 times daily, First dose on Sat04/30/23 at 0800, Insulin Scale: Moderate Correction Scale, 140 - 179: 2 units, 180 - 219: 4 units, 220 - 259: 6 units, 260 - 299: 8 units, 300 - 339: 10 units, 340 - 379: 12 units, 380 - 399: 13 units, Greater than 399: Call service writing Insulin orders 0914 (Not Given - Provider: Carmelina Long RGreg. - Reason: Order parameters not met)1207 (Not Given - Provider: Carmelina Long RJohannaN. - Reason: Order parameters not met)1701 (Not Given - Provider: Carmelina Long R.N. - Reason: Order parameters not met) 0835 (Not Given - Provider: Aaliyah Funk RJohannaNJohanna - Reason: Order parameters not met)1115 (Not Given - Provider: Aaliyah Funk RJohannaN. - Reason: Order parameters not met)1655 (Not Given - Provider: Aaliyah Funk RJohannaNJohanna - Reason: Order parameters not met) 0831 (Given - Provider: Delfina Wayne RJohannaNJohanna)1255 (Not Given - Provider: Delfina Wayne R.N. - Reason: Order parameters not met)1951 (Not Given - Provider: Valerie Linares R.N. - Reason: Patient/family refused - Comment: pt discharging) Lactated Ringer's bolus 2,000 mL (COMPLETED) 2,000 mL, intravenous, at 250 mL/hr, Administer over 8 Hours, Once, On Sat05/05/23 at 1115, For 1 dose 1312 (New Bag - Provider: Carmelina Long R.N.) Lactated Ringer's bolus 2,000 mL (CANCELED) 2,000 mL, intravenous, at 250 mL/hr, Administer over 8 Hours, Once, On Sat05/06/23 at 0630, For 1 dose, Can discontinue when NJ tube replaced 0835 (New Bag - Provider: Aaliyah Funk R.N.) lansoprazole suspension 30 mg (PREVACID) 30 mg, small bowel tube, Daily before breakfast, First dose (after last modification) on Sat05/03/23 at 0700 0618 (Given - Provider: Geronimo Ferro R.N.)171 (Held by provider - Provider: Emmett Santos M.D. - Comment: No NJ tube in) 0700 (Not Given - Provider: Aaliyah Funk RDanuta - Reason: See Provider Order)1743 (Unheld by provider - Provider: Kenia Bhandari M.D.) 0827 (Given - Provider: Delfina Wayne R.N.) levothyroxine tablet 112 mcg (SYNTHROID, LEVOTHROID) 112 mcg, small bowel tube, 3 times weekly (Once per day on Sat), First dose (after last modification) on Sat05/02/23 at 0700 0619 (Given - Provider: Geronimo Ferro R.N.)171 (Held by provider - Provider: Emmett Santos M.D. - Comment: No NJ tube in) 174 (Unheld by provider - Provider: Kenia Bhandari M.D.) 0834 (Given - Provider: Delfina Wayne R.N.) levothyroxine tablet 224 mcg (SYNTHROID, LEVOTHROID) 224 mcg, small bowel tube, 4 times weekly (Once per day on Sat), First dose (after last modification) on Sat05/01/23 at 0700 1716 (Held by provider - Provider: Emmett Santos M.D. - Comment: No NJ tube in) 0700 (Not Given - Provider: Aaliyah Funk RDanuta - Reason: See Provider Order)1743 (Unheld by provider - Provider: Kenia Bhandari M.D.) magnesium sulfate in water IVPB 2 g (COMPLETED) 2 g, intravenous, at 25 mL/hr, Administer over 120 Minutes, Once, On Sat05/05/23 at 0645, For 1 dose, Over 2 hours. 0904 (New Bag - Provider: Carmelina Long R.N.) magnesium sulfate in water IVPB 2 g (COMPLETED) 2 g, intravenous, at 25 mL/hr, Administer over 120 Minutes, Once, On Sat05/07/23 at 0700, For 1 dose, Over 2 hours. 1326 (New Bag - Provider: Delfina Wayne R.N. - Comment: loss of IV access) melatonin liquid 5 mg 5 mg, small bowel tube, Daily at bedtime, First dose (after last modification) on Sat05/02/23 at 2100 1716 (Held by provider - Provider: Emmett Santos M.D. - Comment: No NJ tube in)2100 (Dose Auto Held - Provider: Emmett Santos M.D.) 1743 (Unheld by provider - Provider: Kenia Bhandari M.D.)2137 (Given - Provider: Aleida Baum R.N.) multivitamin/mineral-pr enatal tablet 1 tablet 1 tablet, small bowel tube, Daily, First dose on Sat05/01/23 at 0900 1010 (Not Given - Provider: Carmelina Long R.N. - Reason: Other - Comment: Patient NJ came out, waiting for new tube to be placed)1716 (Held by provider - Provider: Emmett Santos M.D. - Comment: No NJ tube in) 0900 (Not Given - Provider: Aaliyah Funk R.N. - Reason: See Provider Order)174 (Unheld by provider - Provider: Kenia Bhandari M.D.) 0828 (Given - Provider: Delfina Wayne R.N.) polyethylene glycol powder packet 17 g (MIRALAX) 17 g, small bowel tube, 2 times daily, First dose (after last modification) on 05/04/23 at 0900, Ordered sequence of administration: polyethylene glycol, then bisacodyl until BM achieved. Avoid mixing with starch-based thickened liquids. 0855 (Not Given - Provider: Carmelina Long R.N. - Reason: Order parameters not met)1715 (Held by provider - Provider: Emmett Santos M.D. - Comment: No NJ tube in)2099 (Dose Auto Held - Provider: Emmett Santos M.D.) 0900 (Not Given - Provider: Aaliyah Funk R.N. - Reason: See Provider Order)174 (Unheld by provider - Provider: Kenia Bhandari M.D.)2137 (Not Given - Provider: Aleida Baum R.N. - Reason: Order parameters not met) 0827 (Given - Provider: Delfina Wayne R.N.) sennosides-docusate sodium 8.6-50 mg per tablet 2 tablet (SENOKOT-S) 2 tablet, small bowel tube, 2 times daily, First dose (after last modification) on 05/04/23 at 0900, Do not give if patient has diarrhea. 0855 (Not Given - Provider: Carmelina Long R.N. - Reason: Order parameters not met)171 (Held by provider - Provider: Emmett Santos M.D. - Comment: No NJ tube in)2099 (Dose Auto Held - Provider: Emmett Santos M.D.) 0900 (Not Given - Provider: Aaliyah Funk R.N. - Reason: See Provider Order)174 (Unheld by provider - Provider: Kenia Bhandari M.D.)2139 (Not Given - Provider: Aleida Baum R.N. - Reason: Order parameters not met) 0828 (Given - Provider: Delfina Wayne R.N.) PRN Medication Order 05/05/2023 05/06/2023 05/07/2023 acetaminophen tablet 500 mg (TYLENOL) 500 mg, small bowel tube, Every 6 hours PRN, mild pain or score 1-3 of 10, moderate pain or score 4-6 of 10, Starting on Genie 05/02/23 at 1221 dextrose 40 % gel 15 g (GLUTOSE) 15 g, oral, As needed, low blood sugar, For glucose 51-70 mg/dL, Starting on Sat04/30/23 at 1201, If patient is conscious and able to swallow safely and has a fuctioning gastrointestinal tract or on Acarbose (Precose??) or Miglitol (Glyset??). May use tablets or gel. dextrose 50 % injection 12.5 g 12.5 g, intravenous, As needed, low blood sugar, For glucose 51-70 mg/dL, Starting on Sat04/30/23 at 1201, If the patient has intravenous access available, is not able to take oral feeding safely, does not have a functioning gastrointestinal tract or feeding tube, or is NPO, administer D50W intravenously. dextrose 50 % injection 25 g 25 g, intravenous, As needed, low blood sugar, For glucose less than 50 mg/dL, Starting on Sat04/30/23 at 1201, If intravenous access is available, administer D50W intravenously glucose chewable tablet 16 g 16 g, oral, As needed, low blood sugar, For glucose 51-70 mg/dL, Starting on Sat04/30/23 at 1201, If patient is conscious and able to swallow safely and has a functioning gastrointestinal tract or on Acarbose (Precose??) or Miglitol (Glyset??). Administer 4 tablets to total 16 grams. May use tablets or gel. ipratropium 21 mcg (0.03 %) nasal spray 2 spray (ATROVENT) 2 spray, each nostril, 2 times daily PRN, rhinitis, For post-nasal drip, Starting on Sat04/30/23 at 1740 ondansetron ODT disintegrating tablet 8 mg (ZOFRAN-ODT) 8 mg, oral, Every 8 hours PRN, nausea, vomiting, Starting on 05/04/23 at 0421, When splitting ODT at bedside, handle with gloves and a pill splitter to prevent moisture contact. 1835 (Given - Provider: Carmelina Long RJohannaN.) 0827 (Given - Provider: Delfina Wayne RJohannaN.) prochlorperazine injection 5 mg (COMPAZINE) 5 mg, intravenous, Every 6 hours PRN, nausea, vomiting, if unrelieved by zofran, Starting on Sat05/03/23 at 1410 0358 (Given - Provider: Geronimo Ferro R.N.)8054 (Given - Provider: Geronimo Ferro R.N. 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
--- OUTSIDE RECORDS SUMMARY | 2023-10-05 13:06 | XMS_ITS | Encounter Summary ---
Author Name Unknown Organization [facility] Address [address] [place] [address] Care Team Providers Care Medical Insurance Collector Name Role Phone Elsewhere, Pcp Primary Care Provider Unavailabl e Encounter Details Date Type Department Care Team (Latest Contact Info) Description 04/30/2023 10:00 AM CDT Anesthesia Event Division of Gastroenterology in [place], [place] [address] [place] [phone] Octavio Dixon APRN, SAL, DNAP [address] [place] [address] Anesthesia Record Procedure Summary Procedure Name Responsible Anesthesiologist Anesthesia Start Time Anesthesia Stop Time EGD - EXTENDED UGI ENDOSCOPY EXAM/PUSH ENTEROSCOPY Octavio Dixon APRN, CRNA, DNAP 04/30/23 1000 04/30/23 1100 Events Date Time Event Comment 04/30/2023 1000 An Start Machine/Equipme nt Checked Infection Precautions Followed Procedure/Site Verified NPO Status Verified Supine Standard ASA Monitors Applied 1003 An Induction 1006 An Intubation 1008 Turnover to Proceduralist 1015 Proc Start 1048 Proc Fin 1051 Turnover to ANE Staff 1054 Airway Removal Criteria Met 1054 Extubation/Airway Removed 1056 an stop data 1100 An End I completed my handoff to [...] Meds Name Total fentanyl injection 50 mcg/mL 125 mcg lidocaine 2% (mg) injection 100 mg succinylcholine 20 mg/mL injection 120 m g phenylephrine 100 mcg/mL injection 300 m cg ondansetron 4 mg/2 mL injection 4 mg propofol 10 mg/mL injection 150 mg propofol 10 mg/mL infusion 620.59 mg Lactated Ringers Free Drip 200 mL * Agents No agents on file. * Blood No blood administrations on file. Lines, Drains, and Airways Type Details Placement Removal Closed/Suction Drain 10/23/19; 1020; 1; Posterior; Back; Accordion; 10 Fr. 10/23/19 1020 by Ayla Ward, RJohannaNJohanna 05/07/23 1902 by Delfina Wayne, RJohannaNJohanna Peripheral IV Placement Date: 04/10 10/01; Placement Time: 1638; Catheter Size: 18 G; Orientation: Anterior, Lower, Right; Location: Forearm; Site Prep: Chlorhexidine (Preferred); Technique: Anatomical landmarks; Insertion Attempts: 1; Removal Date: 05/05/23; Removal Time: 1014; Removal Reason: No longer in place 04/29/23 1638 by Saige Edwards RJohannaNJohanna 05/05/23 1014 by Ailyn Hawley ETT Placement Date: 04/10 11/01; Placement Time: 1006 (created via procedure documentation); Technique: Video laryngoscopy; Type: Standard ETT; Single Lumen Tube Size: 7.5 mm; Cuffed: Yes; Location: Oral; Grade View: Grade 1; Placement Verification: Bilateral breath sounds, Positive ETCO2, Symmetrical chest wall movement; Removal Date: 04/30/23; Removal Time: 1054 04/30/23 1006 by Braden Ríos APRN, CURRICULUM AND ASSESSMENT COORDINATOR 04/30/23 1054 by Octavio Dixon APRN, SAL, DNAP NG/OG Tube 04/30/23; 1048; Othe r (Comment); Nasojejunal; 12 Fr; 125 cm; Nare, Left; Small bore (ENFit??); 05/05/23; 0700 04/30/23 1048 by Kamilah Dewitt, RJohannaN. 05/05/23 0700 by Carmelina Long R.N. documented in this encounter Social History [...] How often do you attend chur or episcopal services? Never 01/10/2023 Do you [...] Answer Date Recorded PHQ-2 Score 0 04/25/2020 [facility] Occupat ional [facility] - Occupational Stress Questionnaire Answer Date Recorded [...] OR Notes * Anesthesia Postprocedure Evaluation - Octavio Dixon APRN, CRNA, DNAP - 04/30/2023 11:04 AM CDT Patient: Hola Lau Procedure Summary Date: 04/30/23 Room / Location: Division of Gastroenterology in [place], [place] Anesthesia Start: 1000 Anesthesia Stop: 1100 Procedure: EGD - EXTENDED UGI ENDOSCOPY EXAM/PUSH ENTEROSCOPY Diagnosis: Scheduled Providers: Octavio Dixon APRN, CRNA, DNAP Responsible Provider: Octavio Dixon APRN, CRNA, DNAP Anesthesia Type: general ASA Status: 3 Anesthesia Type: general Last vitals Vitals Value Taken Time BP 84/49 04/30/23 1101 Temp 36.5 ??C 04/30/23 1059 Pulse 76 04/30/23 1104 Resp 16 04/30/23 1104 SpO2 93 % 04/30/23 1104 Vitals shown include unvalidated device data. Please reference Vitals flowsheet for most recent vital signs. Anesthesia Post Evaluation Patient Disposition: general care unit Cardiovascular status: hemodynamics (HR & BP) acceptable Respiratory status: patent airway with spontaneous effort Temperature: normothermic Oxygen requirements: nasal cannula Level of consciousness: awake Pain score: pain adequately controlled and/or at baseline Post Op nausea/vomiting: none Hydration status: euvolemic * Anesthesia Procedure Notes - Braden Ríos APRN, CRNA - 04/30/2023 10:06 AM CDTAssociated Order(s): Airway Airway Date/Time: 04/30/2023 10:06 AM Performed by: Braden Ríos APRN, CRNA Authorized by: Braden Ríos APRN, CRNA Patient location during procedure: OR / Procedure Area PROCEDURE DETAILS: Final airway type: video laryngoscope Laryngeal Manipulation: no Final best view of glottic structures - Cormack/Lehane Score: grade 1 ETT location: oral VL device: glide scope [place] scope blade size: 4 Tube size: 7.5 ETT distance at teeth/gum: 22 Oral tube type: standard ETT Cuffed: yes Airway confirmation: bilateral breath sounds, positive ETCO2 and bilateral chest rise PRE PROCEDURE DETAILS: Pre evaluation for airway management: procedure Urgency: elective Preop assessment of probable difficulty: no difficulty anticipated Preoxygenation: bag valve mask SEDATION / ANESTHESIA Anesthesia method: anesthesia POST PROCEDURE DETAILS: Procedure outcome: successful * Anesthesia Preprocedure Evaluation - Octavio Dixon APRN, CRNA, DNAP - 04/30/2023 9:55 AM CDT Preprocedure Anesthesia & H&P Assessment Procedure Summary Anesthesia Start Date/Time: 04/30/23 1000 Scheduled providers: Octavio Dixon APRN, CRNA, DNAP Procedure: EGD - EXTENDED UGI ENDOSCOPY EXAM/PUSH ENTEROSCOPY Location: Division of Gastroenterology in [place], [place] Pertinent components of the patient's history [...] EXAMINATION Airway (HEENT) Mallampati: II TM Distance: <3 FB Neck ROM: Limited Mouth Opening: >3 cm Upper Lip Bite Test Class: II Cardiovascular Rhythm: Regular Rate: Normal Cardiovascular Assessment: cardiovascular normal Pulmonary Pulmonary Assessment: Clear General / Constitutional Constitutional Assessment: Normal General State of Health:: healthy appearing Neurological Neurologic Assessment: alert Dental Normal ASSESSMENT / PLAN ANESTHESIA PLAN ASA: 3 Anesthesia Plan: general GETA SECONDARY TO EXTENDED UPPER ENDOSCOPY, PLACEMENT OF NJ TUBE. RISK FOR GASTRIC OUTLET OBSTRUCTION SECONDARY TO DUODENAL MASS. Patient seen and allergies reviewed, anesthesia plan and risks discussed directly with patient /legal guardian or through an manganese breaker. Risks/Benefits/Alternatives of Blood transfusion discussed with patient [...] (Latest Contact Info) Description 10/06/2023 9:04 AM FERTILIZER SUPERVISOR - 10/06/2023 11:24 AM FERTILIZER SUPERVISOR Surgery [facility] MA[facility] OR [address] [place] [phone] Cameron Saenz M.D. [address] [place] [phone] ABDOMINAL EXPLORATION, REMOVAL ABTHERA, POSSBLE BOWEL RESECTION, PROCEED INDICATED 10/11/2023 7:00 AM FERTILIZER SUPERVISOR Appointment Department of Laboratory Medicine and Pathology, [facility], in [place], [place] [address] [place] [phone] Arti Epstein M.B.B.S. [address] [place] [phone] 10/11/2023 9:00 AM FERTILIZER SUPERVISOR Office Visit Division of Hematology in [place], [place] [address] [place] [phone] Arti Epstein M.B.B.S. [address] [place] [phone] 10/11/2023 10:00 AM FERTILIZER SUPERVISOR Infusion Department of Oncology in [place], [place] [address] [place] [phone] Bev Gifford APRN, C.N.P., M.S.N. [address] [place] [phone] 11/19/2023 10:00 AM CDT Office Visit Division of Endocrinology in [place], [place] [address] [place] [phone] West Mendoza APRN, C.N.P., M.S. [address] [place] [phone] 11/19/2023 2:30 PM CDT Comprehensive Visit Division of Hepatobiliary and Pancreas Surgery in [place], [place] [address] [place] [phone] Wesley Hamilton M.D. [address] [place] [phone] Scheduled Procedures Name Priority Associated Diagnoses Date/Ti me LAPAROTOMY - ABDOMINAL WASHOUT Ischemia Intestinal With Stricture (HCC) 10/06/2023 9:04 AM FERTILIZER SUPERVISOR documented as of this encounter Procedures Procedure Name Priority Date/Time Associated Diagnosis Comments LDA ANE ENDOTRACHEAL AIRWAY Routine 04/30/2023 10:06 AM CDT documented in this encounter Results * LDA ANE ENDOTRACHEAL AIRWAY (04/30/2023 10:06 AM CDT) Narrative Braden Ríos APRN, CRNA - 04/30/2023 10:06 AM CDT Braden Ríos APRN, CRNA ? 04/30/2023 10:07 AM Airway Date/Time: 04/30/2023 10:06 AM Performed by: Braden Ríos APRN, CRNA Authorized by: Braden Ríos APRN, CRNA ?? Patient location during procedure: OR / Procedure Area PROCEDURE DETAILS: Final airway type: video laryngoscope Laryngeal Manipulation: no ?? Final best view of glottic structures - Cormack/Lehane Score: grade 1 ETT location: oral VL device: glide scope [place] scope blade size: 4 Tube size: 7.5 ETT distance at teeth/gum: 22 Oral tube type: standard ETT Cuffed: yes Airway confirmation: bilateral breath sounds, positive ETCO2 and bilateral chest rise PRE PROCEDURE DETAILS: Pre evaluation for airway management: procedure Urgency: elective Preop assessment of probable difficulty: no difficulty anticipated Preoxygenation: bag valve mask SEDATION / ANESTHESIA Anesthesia method: anesthesia POST PROCEDURE DETAILS: ? Procedure outcome: successful ?? Braden Ríos APRN, CRNA ANESTHESIA ORD ERABLES documented in this encounter Visit Diagnoses Not on filedocumented in this encounter Administered Medications Inactive Administered Medications - up to 3 most recent administrations Medication Order MAR Action Action Date Dose Rate Site fentaNYL injection (SUBLIMAZE) intravenous, As needed, Starting on Sat04/30/23 at 1004, Anesthesia Intra-op Given 04/30/2023 10:18 AM CDT 25 mcg Given 04/30/2023 10:02 AM CDT 100 mcg Lactated Ringer's intravenous, Continuous Infusion: Per Instructions PRN, Starting on Sat04/30/23 at 1000, Anesthesia Intra-op New Bag 04/30/2023 10:00 AM CDT lidocaine (PF) (cardiac) injection intravenous, As needed, Starting on Sat04/30/23 at 1003, Anesthesia Intra-op Given 04/30/2023 10:03 AM CDT 100 mg ondansetron (PF) injection (ZOFRAN) intravenous, As needed, Starting on Sat04/30/23 at 1021, Anesthesia Intra-op Given 04/30/2023 10:21 AM CDT 4 mg phenylephrine injection intravenous, As needed, Starting on Sat04/30/23 at 1033, Anesthesia Intra-op Given 04/30/2023 10:59 AM CDT 100 mc g Given 04/30/2023 10:56 AM CDT 100 mcg Given 04/30/2023 10:33 AM CDT 100 mcg propofol 10 mg/mL infusion (DIPRIVAN) intravenous, Continuous Infusion: Per Instructions PRN, Starting on Sat04/30/23 at 1003, Anesthesia Intra-op New Bag 04/30/2023 10:03 AM CDT 125 mcg/kg/min 65.325 mL/hr propofoL injection (DIPRIVAN) intravenous, As needed, Starting on Sat04/30/23 at 1003, Anesthesia Intra-op Given 04/30/2023 10:03 AM CDT 150 mg succinylcholine (PF) injection (ANECTINE) intravenous, As needed, Starting on Sat04/30/23 at 1004, Anesthesia Intra-op Given 04/30/2023 10:04 AM CDT 120 mg documented in this encounter Care Teams Medical Insurance Collector Relationship Specialty Start Date End Date Elsewhere, Pcp PCP - General Internal Medicine 01/08/22 05/10/23 documented as of this encounter
--- OUTSIDE RECORDS SUMMARY | 2023-10-05 13:06 | XMS_ITS | Encounter Summary ---
Author Name Unknown Organization [facility] Address [address] [place] [address] Care Team Providers Care School Social Worker Name Role Phone Elsewhere, Pcp Primary Care Provider Unavailabl e Reason for Visit * Reason Comments Results Encounter Details Date Type Department Care Team (Latest Contact Info) Description 04/15/2023 Clinical Communication Division of Endocrinology in [place], [place] [address] [place] [phone] Rosemarie Dutton, RYLEE, C.N.P., M.S. [address] [place] [phone] Results Social History Tobacco Use Types Packs/Day Years Used Date Smoking Tobacco: Former Cigarettes 1 22 Q uit: 02/07/1989 Smokeless Tobacco: Current Snuff Alcohol Use Standard Drinks/Week Comments Yes 2 [...] often do you attend chur ch or orthodox services? Never 01/10/2023 Do you [...] Answer Date Recorded PHQ-2 Score 0 04/25/2020 [facility] - Occupational Stress Questionnaire Answer Date [...] (Latest Contact Info) Description 10/06/2023 9:04 AM GOVERNOR ASSEMBLER HYDRAULIC - 10/06/2023 11:24 AM GOVERNOR ASSEMBLER HYDRAULIC Surgery [facility] MA[facility] OR [address] [place] [phone] Cameron Saenz M.D. [address] [place] [phone] ABDOMINAL EXPLORATION, REMOVAL ABTHERA, POSSBLE BOWEL RESECTION, PROCEED INDICATED 10/11/2023 7:00 AM GOVERNOR ASSEMBLER HYDRAULIC Appointment Department of Laboratory Medicine and Pathology, [facility], in [place], [place] [address] [place] [phone] Arti Epstein M.B.B.S. [address] [place] [phone] 10/11/2023 9:00 AM GOVERNOR ASSEMBLER HYDRAULIC Office Visit Division of Hematology in [place], [place] [address] [place] [phone] Arti Epstein M.B.B.S. [address] [place] [phone] 10/11/2023 10:00 AM GOVERNOR ASSEMBLER HYDRAULIC Infusion Department of Oncology in [place], [place] [address] [place] [phone] Bev Gifford APRN, C.N.P., M.S.N. [address] [place] [phone] 11/19/2023 10:00 AM CDT Office Visit Division of Endocrinology in [place], [place] [address] [place] [phone] West Mendoza APRN, C.N.P., M.S. [address] [place] [phone] 11/19/2023 2:30 PM CDT Comprehensive Visit Division of Hepatobiliary and Pancreas Surgery in [place], [place] [address] [place] [phone] Wesley Hamilton M.D. [address] [place] [phone] Scheduled Procedures Name Priority Associated Diagnoses Date/Ti me LAPAROTOMY - ABDOMINAL WASHOUT Ischemia Intestinal With Stricture (HCC) 10/06/2023 9:04 AM GOVERNOR ASSEMBLER HYDRAULIC documented as of this encounter Visit Diagnoses Not on filedocumented in this encounter Care Teams School Social Worker Relationship Specialty Start Date End Date Elsewhere, Pcp PCP - General Internal Medicine 05/11/23 09/13/23 documented as of this encounter
--- OUTSIDE RECORDS SUMMARY | 2023-10-05 13:06 | XMS_ITS | Encounter Summary ---
Author Name Unknown Organization [facility] Address [address] [place] [address] Care Team Providers Care Saw Handle Assembler Name Role Phone Elsewhere, Pcp Primary Care Provider Unavailabl e Reason for Referral * Outpatient (Routine) - Authorized Specialty Diagnoses / Procedures Referred By Doroteo duron Referred To Contact Endocrinology Diagnoses Diabetes Mellitus Type 2 With Diabetic Neuropathy (HCC) Rosemarie Dutton APRN, C.NJohannaP., M.S. [address] [place] [phone] [facility] Referral ID Status Reason Start Date Expiration Date V isits Requested Visits Authorized [id number] Authorized 01/15/2023 01/14/2026 1 1 Reason for Visit * Outpatient (Routine) - Closed Specialty Diagnoses / Procedures Referred By Doroteo duron Referred To Contact Endocrinology Rosemarie Dutton APRN, C.N.P., M.S. [address] [place] [phone] [facility] Referral ID Status Reason Start Date Expiration Date Visits Re quested Visits Authorized [id number] Closed 07/18/2022 07/17/2025 1 1 Encounter Details Date Type Department Care Team (Latest Contact Info) Description 01/15/2023 11:00 AM CDT Office Visit Division of Endocrinology in [place], [place] [address] [place] [phone] Rosemarie Dutton APRN, C.N.P., M.S. [address] [place] [phone] Diabetes Mellitus Type 2 With Diabetic Neuropathy (HCC) (Primary Dx); Hypertension Essential Primary; Hyperlipidemia; Obesity Body Mass Index 30-39.9 Adult; Hypothyroidism Postsurgical; Diabetes Mellitus Type 2 (HCC); Gout Social History Tobacco Use Types Packs/Day Years [...] often do you attend chur ch or jainism services? Never 01/10/2023 Do you belong to [...] Answer Date Recorded PHQ-2 Score 0 04/25/2020 [facility] [place] of Occupat ional Health - Occupational Stress [...] No 01/10/2023 Housing Stability Vital Sign Answer Lno e Recorded In the last 12 months, [...] Sign Reading Time Taken Comments Blood Pressure 126/66 01/15/2023 10:45 AM CDT Pulse 77 01/15/2023 10:45 AM CDT Temperature - - Respiratory Rate - - Oxygen Saturation - - Inhaled Oxygen Concentration - - Weight 92.3 kg (203 lb 7.8 oz) 01/15/2023 10:45 AM CDT Height 172.8 cm (5' 8.03) 01/15/2023 10:45 AM C DT Body Mass Index 30.91 01/15/2023 10:45 AM CDT documented in this encounter Progress Notes * Rosemarie Dutton, RYLEE, C.N.P., M.S. - 01/15/2023 11:00 AM CDT SUBJECTIVE CHIEF COMPLAINT/ PURPOSE OF VISIT Diabetes: last seen 07/18/2022 every 6 months Interim: good HISTORY OF PRESENT ILLNESS Mr. Hola Lau is a 72 y.o. male with Type 2 diagnosed 2011 Current Therapy: Empagliflozin (Jardiance) 10 mg (initiated 10/04/2022 ) Liraglutide 1.2 mg daily (has been on since before 2014) missed a few doses Metformin 1000 mg once daily evening meal Previous Therapy: Did not tolerate Liraglutide 1.8 mg because dry heaves. Monitoring: Meter Type: True Metrix Glucose Review: meter download Frequency of monitoring 1 times per day Average glucose in 30 days = 110 mg dL with 14 results fasting Highest 131 mg dL , Lowest 92 mg dL Hypoglycemia: Patient reports having symptoms of: classic symptom awareness Frequency rare, one time, felt weak Treatment food Assistance required: No Nutrition: small meals 3 times daily, may snack afternoon Activity: walking around block most days , in winter goes to [facility] to walk Has seated wheeled walker - physical therapy to gain core strength, getting a new leg brace DIABETES Review Systems: Lab Results Component Value Date HGBA1C 6.0 (H) 01/15/2023 HGBA1C 5.9 (H) 07/18/2022 HGBA1C 5.8 (H) 01/10/2022 --Eyes: 01/01/2023 [facility], no retinopathy -- Dentist: every 6 months --Thyroid: last 07/18/2022 Rufino Ortiz APRN, DOUPER on levothyroxine, 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, radioactive iodine 2007 on replacement for hypothyroidism, dose last changed 10/09/2021 Lab Results Component Value Date TSH 0.7 07/18/2022 --Cardiac History: No, denies chest pain, shortness of breath -Aspirin: yes 325 mg -stroke prevention -Beta-Randy Yes, labetalol --Hyperlipidemia: lipid panel 07/18/2022 low HDL 36 mg dL LDL 53 mg dL in goal -Statin therapy: Moderate intensity simvastatin 20 mg --Hypertension: Yes Treatment lisinopril/hydrochlorothiazide BP Readings from Last 3 Encounters: 01/15/23 126/66 07/18/22 116/63 01/10/22 112/66 --Renal: 01/15/2023 CKD stage 3a, egFR 54 ml.min, creatinine 1.38 mg dL , UACR 98 mg/g improved from 406 mg/g 6 months ago, though creatinine and eGFR dropped 01/2023 --Neuro: left foot bottom tingling (numb, cold ) hands always numb cold --Weight: , lost 20 pounds in one year and another 5 pounds this 6 months intentional BMI Readings from Last 2 Encounters: 01/15/23 30.91 kg/m?? 07/18/22 30.34 kg/m?? ; Wt Readings from Last 3 Encounters: 01/15/23 92.3 kg 07/18/22 94.4 kg 01/10/22 95.1 kg --Mood: feeling good --Sleep: okay, if can't sleep takes Tylenol pm occasionally --Immunizations: -Other: Supplements multivitamin -Last Diabetes education: OBJECTIVE PHYSICAL EXAMINATION: Cardiovascular Pulses: Dorsalis pedis pulses are 2+ on the right side and 2+ on the left side. Posterior tibial pulses are 2+ on the right side and 2+ on the left side. Feet Right foot: Skin integrity: Skin integrity normal. Toenail Condition: Right toenails are abnormally thick. Left foot: Skin integrity: Skin integrity normal. Toenail Condition: Left toenails are abnormally thick. Comments: Great toenails and 2nd toenail left foot thick Foot exam 07/18/2022 viewed 01/15/2023 ASSESSMENT / PLAN #1 Diabetes Mellitus Type 2 With Diabetic Neuropathy (HCC) #2 Hypertension Essential Primary #3 Hyperlipidemia #4 Obesity Body Mass Index 30-39.9 Adult #5 Hypothyroidism Postsurgical Other orders - Endocrinology office visit (clinic) Diabetes management currently well controlled A1c 6.0% without hypoglycemia On Metformin and Victoza and added Jardiance 09/2022 Hypertension controlled CKD stage 2 eGFR 71 ml/min this has decreased to 54 ml/min but his UACR has improved down to 98 mg/g , calcium is normal was mildly low 6 months ago Thyroid labs in July Requesting uric acid lab in July with annual labs as history of gout and his primary care provider requested. Has not had any recent flares. Diabetes Management: Metformin 1000 mg once daily improved diarrhea Liraglutide (Victoza) 1.2 mg injection daily Recommend Vitamin D supplement during winter months. Empagliflozin (Jardiance) 10 mg dL -Monitoring: daily alternate times. -Blood Glucose Goal: 100-140 mg/dL -A1c Goal:<7.0% which is an average of about <150 mg dL and without frequent hypoglycemia which is <70 mg dL -Followup: 3 months creatinine and eGFR with annual diabetes 6 months Recommend 30 minutes moderate activity most days of the week in at least 10 minute increments for heart health and muscle efficiency and glucose management. Aim for 150 minutes weekly with 2-3 days strength training/weekly Recommend 5-10% weight loss over 3-6 months. 1-2 pounds per week by decreasing portion sizes/snacking and increasing daily activity. documented in this encounter Plan of Treatment Upcoming Encounters Date Type Department Care Team (Latest Contact Info) Description 10/06/2023 9:04 AM DEVELOPMENTAL EDUCATION INSTRUCTOR - 10/06/2023 11:24 AM DEVELOPMENTAL EDUCATION INSTRUCTOR Surgery [facility] OR [address] [place] [phone] Cameron Saenz M.D. [address] [place] [phone] ABDOMINAL EXPLORATION, REMOVAL ABTHERA, POSSBLE BOWEL RESECTION, PROCEED INDICATED 10/11/2023 7:00 AM DEVELOPMENTAL EDUCATION INSTRUCTOR Appointment Department of Laboratory Medicine and Pathology, [facility], in [place], [place] [address] [place] [phone] Arti Epstein M.B.B.S. [address] [place] [phone] 10/11/2023 9:00 AM DEVELOPMENTAL EDUCATION INSTRUCTOR Office Visit Division of Hematology in [address] [phone] Arti Epstein M.B.B.S. [address] [place] [phone] 10/11/2023 10:00 AM DEVELOPMENTAL EDUCATION INSTRUCTOR Infusion Department of Oncology in [place], [place] [address] [place] [phone] Bve Gifford APRN, C.N.P., M.S.N. [address] [place] [phone] 11/19/2023 10:00 AM CDT Office Visit Division of Endocrinology in [place], [place] [address] [place] [phone] West Mendoza APRN, C.N.P., M.S. [address] [place] [phone] 11/19/2023 2:30 PM CDT Comprehensive Visit Division of Hepatobiliary and Pancreas Surgery in [place], [place] [address] [place] [phone] Wesley Hamilton M.D. [address] [place] [phone] Scheduled Orders Name Type Priority Associated Diagnoses Orde r Schedule Lipid Panel Lab Routine Diabetes Mellitus Type 2 With Diabetic Neuropathy (HCC) Hyperlipidemia Expected: 07/18/2023 (Approximate), Expires: 01/16/2024 Hemoglobin A1c Lab Routine Diabetes Mellitus Type 2 With Diabetic Neuropathy (HCC) Expected: 07/18/2023 (Approximate), Expires: 01/16/2024 Albumin, Random, Urine Lab Routine Diabetes Mellitus Type 2 With Diabetic Neuropathy (HCC) Expected: 07/18/2023 (Approximate), Expires: 01/16/2024 S-TSH (Thyroid-Stimulating Hormone - Sensitive) Lab Routine Diabetes Mellitus Type 2 With Diabetic Neuropathy (HCC) Hypothyroidism Postsurgical Expected: 07/18/2023 (Approximate), Expires: 01/16/2024 Comprehensive Metabolic Panel Lab Routine Diabetes Mellitus Type 2 With Diabetic Neuropathy (HCC) Expected: 07/18/2023 (Approximate), Expires: 04/17/2024 Uric Acid Lab Routine Gout Expected: 07/18/2023 (Approximate), Expires: 04/17/2024 Scheduled Procedures Name Priority Associated Diagnoses Date/Ti me LAPAROTOMY - ABDOMINAL WASHOUT Ischemia Intestinal With Stricture (HCC) 10/06/2023 9:04 AM DEVELOPMENTAL EDUCATION INSTRUCTOR Scheduled Referrals Name Type Priority Associated Diagnoses Order Schedule Endocrinology office visit (clinic) Outpatient Referral Routine Diabetes Mellitus Type 2 With Diabetic Neuropathy (HCC) Expected: 07/18/2023 (Approximate), Expires: 04/17/2024 documented as of this encounter Visit Diagnoses Diagnosis Diabetes Mellitus Type 2 With Diabetic Neuropathy (HCC)- Primary Hypertension Essential Primary Hyperlipidemia Obesity Body Mass Index 30-39.9 Adult Hypothyroidism Postsurgical Diabetes Mellitus Type 2 (HCC) Gout Ischemia Intestinal With Stricture (HCC) documented in this encounter Care Teams Saw Handle Assembler Relationship Specialty Start Date End Date Elsewhere, Pcp PCP - General Internal Medicine 01/08/22 05/10/23 documented as of this encounter
--- OUTSIDE RECORDS SUMMARY | 2023-10-05 13:06 | XMS_ITS | Encounter Summary ---
Author Name Unknown Organization [facility] Address [address] [place] [address] Care Team Providers Care School Psychometrist Name Role Phone Elsewhere, Pcp Primary Care Provider Unavailabl e Encounter Details Date Type Department Care Team (Latest Contact Info) Description 01/15/2023 6:38 AM CDT - 01/15/2023 11:59 PM CDT Hospital Encounter Department of Laboratory Medicine and Pathology, [facility] in [place], [place] [address] [place] [phone] Rosemarie Dutton, RYLEE, C.N.P., M.S. [address] [place] [phone] Diabetes Mellitus Type 2 With Diabetic Neuropathy (HCC) Discharge Disposition: Home or Self Care [...] often do you attend chur ch or sabianist services? Never 01/10/2023 Do you belong to [...] Answer Date Recorded PHQ-2 Score 0 04/25/2020 [facility] [place] of Occupat ional Health - Occupational Stress [...] Sig Dispensed Refills Start Date End Date pen needle, diabetic (UltiCare Pen Needle) 31 gauge x 5/16 needleIndications:D iabetes Mellitus Type 2 With Diabetic Neuropathy (HCC) 1 Injection by abdominal subcutaneous route daily. 100 each 3 07/18/2022 acetaminophen (TYLENOL) 500 mg tabletIndications:p ain Take 2 tablets (1,000 mg total) by mouth every 6 (six) hours as needed for pain Indications: pain. 0 10/23/2019 05/07/2023 allopurinoL (ZYLOPRIM) 300 mg tablet Take 1 tablet by mouth daily. 0 09/27/2020 05/07/2023 amitriptyline (ELAVIL) 25 mg tablet Take 12.5 mg by mouth at bedtime as needed (neuropathy). 0 05/07/2023 aspirin 325 mg tablet Take 1 tablet by mouth 2 (two) times a day. 0 11/03/2013 04/30/2023 empagliflozin (Jardiance) 10 mg tablet Take 1 tablet (10 mg total) by mouth every morning before breakfast. 30 tablet 11 10/04/2022 05/07/2023 ixekizumab (TALTZ) 80 mg/mL syringe injection Inject 80 mg under the skin every 28 (twenty-eight) days. One injection per month Does not use during chemotherapy 0 07/24/2017 08/07/2023 labetalol (for_NORMODYNE) 100 mg tablet Take 1.5 tablets by mouth 2 (two) times a day. 0 11/03/2013 05/07/2023 levothyroxine (SYNTHROID, LEVOTHROID) 112 mcg tablet TAKE 2 TABLETS(224 MCG) BY MOUTH DAILY. EXCEPT ON SUNDAYS, TUESDAYS, AND THURSDAYS TAKE ONLY 1 TABLET 112 MCG. HYPOTHYROIDISM 190 tablet 3 01/09/2023 05/07/2023 liraglutide (Victoza 2-Umesh) 0.6 mg/0.1 mL (18 mg/3 mL) injection Inject 1.2 mg under the skin every morning. 18 mL 3 07/18/2022 05/07/2023 liraglutide, weight loss, (SAXENDA) 3 mg/0.5 mL (18 mg/3 mL) injection Inject 1.2 mg under the skin daily. Not taking during chemo 0 07/30/2022 08/07/2023 lisinopril-hydroCHL OROthiazide (PRINZIDE,ZESTORETI C) 20-25 mg per tabletIndications:H yperlipidemia Take 1 tablet by mouth 2 (two) times a day. 180 tablet 3 07/18/2022 04/30/2023 metFORMIN (GLUCOPHAGE) 1,000 mg tabletIndications:D iabetes Mellitus Type 2 (HCC) Take 1 tablet (1,000 mg total) by mouth daily with dinner. 100 tablet 3 01/15/2023 05/07/2023 multivitamin tablet Take 1 tablet by mouth every evening. 0 11/03/2013 04/30/2023 probenecid-colchici ne (COLBENEMID) 500-0.5 mg per tablet TAKE 1 TABLET BY MOUTH TWICE DAILY NEEDED FOR GOUT FLARE 0 10/25/2021 05/07/2023 simvastatin (ZOCOR) 20 mg tablet TAKE 1 TABLET(20 MG) BY MOUTH AT BEDTIME 90 tablet 3 07/18/2022 05/07/2023 documented as of this encounter Plan of Treatment Upcoming Encounters Date Type Department Care Team (Latest Contact Info) Description 10/06/2023 9:04 AM MAINSPRING WINDER - 10/06/2023 11:24 AM MAINSPRING WINDER Surgery [facility] OR [address] [place] [phone] Cameron Saenz M.D. [address] [place] [phone] ABDOMINAL EXPLORATION, REMOVAL ABTHERA, POSSBLE BOWEL RESECTION, PROCEED INDICATED 10/11/2023 7:00 AM MAINSPRING WINDER Appointment Department of Laboratory Medicine and Pathology, [facility], in [place], [place] [address] [place] [phone] Arti Epstein M.B.B.S. [address] [place] [phone] 10/11/2023 9:00 AM MAINSPRING WINDER Office Visit Division of Hematology in [place], [place] [address] [place] [phone] Arti Epstein M.B.B.S. [address] [place] [phone] 10/11/2023 10:00 AM MAINSPRING WINDER Infusion Department of Oncology in [place], [place] [address] [place] [phone] Bev Gifford APRN, C.N.P., M.S.N. [address] [place] [phone] 11/19/2023 10:00 AM CDT Office Visit Division of Endocrinology in [place], [place] [address] [place] [phone] West Mendoza APRN, C.N.P., M.S. [address] [place] [phone] 11/19/2023 2:30 PM CDT Comprehensive Visit Division of Hepatobiliary and Pancreas Surgery in [place], [place] [address] [place] [phone] Wesley Hamilton M.D. [address] [place] [phone] Scheduled Procedures Name Priority Associated Diagnoses Date/Ti me LAPAROTOMY - ABDOMINAL WASHOUT Ischemia Intestinal With Stricture (HCC) 10/06/2023 9:04 AM MAINSPRING WINDER documented as of this encounter Procedures Procedure Name Priority Date/Time Associated Diagnosis Comments HEMOGLOBIN A1C, B Routine 01/15/2023 6:5 2 AM CDT Diabetes Mellitus Type 2 With Diabetic Neuropathy (HCC) BASIC METABOLIC PANEL, S/P Routine 01/15/2023 6:52 AM CDT Diabetes Mellitus Type 2 With Diabetic Neuropathy (HCC) documented in this encounter Results * (ABNORMAL) Basic Metabolic Panel (01/15/2023 6:52 AM CDT) Potassium, S 4.3 3.6 - 5.2 mmol/L 01/15/2023 7:46 AM CDT DTL Sodium, S 141 135 - 145 mmol/L 01/15/2023 7:46 AM CDT DTL Chloride, S 104 98 - 107 mmol/L 01/15/2023 7:46 AM CDT DTL Bicarbonate, S 26 22 - 29 mmol/L 01/15/2023 7:46 AM CDT DTL Anion Gap 11 7 - 15 01/15/2023 7:46 AM CDT DTL BUN (Blood Urea Nitrogen), S 27(H) 8 - 24 mg/dL 01/15/2023 7:46 AM CDT DTL Creatinine 1.38(H) 0.74 - 1.35 mg/dL 01/15/2023 7:46 AM CDT DTL Estimated GFR (eGFR) 54(L) >=60 mL/min/BSA 01/15/2023 7:46 AM CDT DTL Comment: Estimated GFR calculated using the 2020 CKD_EPI creatinine equation. Calcium, Total, S 9.0 8.8 - 10.2 mg/dL 01/15/2023 7:46 AM CDT DTL Glucose, S 111 70 - 140 mg/dL 01/15/2023 7:46 AM CDT DTL Blood (Blood, Venous) 01/15/2023 6:52 AM CDT 01/15/2023 7:26 AM CDT Rosemarie Dutton APRN C.N.P., M.S. [place] [address], [place] [address] * (ABNORMAL) Hemoglobin A1c (01/15/2023 6:52 AM CDT) Hemoglobin A1c, B 6.0(H) 4.0 - 5.6 % 01/15/2023 7:54 AM CDT DTL Comment: Hemoglobin A1c values of 5.7-6.4 percent indicate an increased risk for developing diabetes mellitus. In diabetic patients, HbA1c goals should be discussed with healthcare provider. Blood (Blood, Venous) 01/15/2023 6:52 AM CDT 01/15/2023 7:15 AM CDT Rosemarie Dutton APRN, C.N.P., M.S. 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
--- OUTSIDE RECORDS SUMMARY | 2023-10-05 13:06 | XMS_ITS | Encounter Summary ---
Author Name Unknown Organization [facility] Address [address] [place] [address] Care Team Providers Care Customer Operations Intern Name Role Phone Elsewhere, Pcp Primary Care Provider Unavailabl e Reason for Visit * Reason Comments Scheduling Encounter Details Date Type Department Care Team ([facility] st Contact Info) Description 05/01/2023 Documentation Division of Endocrinology in [place], [place] [address] [place] [phone] Micaela Reich, RJohannaN. Scheduling Social History Tobacco [...] any clubs o r organizations such as advent groups, unions, fraternal or athletic groups, or [...] Date Recorded PHQ-2 Score 0 04/25/2020 [facility] of Occupat ional Health - [...] this encounter Progress Notes * Micaela Reich R.N. - 05/01/2023 3:47 PM CDT Order in for HEN consult. Patient has a history of abdominal pain, nausea/vomiting and inability totolerate oral diet in the setting of duodenal mass/wall thickening . He currently has a 12 austrian Nasojejunal feeding tube placed on 04/30/23. They will need to see the HEN dietitian and provider. Patient is new to HEN team. Requesting appointments next available after hospital dismissal. documented in this encounter Plan of Treatment Upcoming Encounters Date Type Department Care Team (Latest Contact Info) Description 10/06/2023 9:04 AM CONSULTANT ELECTRONICS - 10/06/2023 11:24 AM CONSULTANT ELECTRONICS Surgery [facility] OR [address] [place] [phone] Cameron Saenz M.D. [address] [place] [phone] ABDOMINAL EXPLORATION, REMOVAL ABTHERA, POSSBLE BOWEL RESECTION, PROCEED INDICATED 10/11/2023 7:00 AM CONSULTANT ELECTRONICS Appointment Department of Laboratory Medicine and Pathology, [facility], in [place], [place] [address] [place] [phone] Arti Epstein M.B.B.S. [address] [place] [phone] 10/11/2023 9:00 AM CONSULTANT ELECTRONICS Office Visit Division of Hematology in [place], [place] [address] [place] [phone] Arti Epstein M.B.B.S. [address] [place] [phone] 10/11/2023 10:00 AM CONSULTANT ELECTRONICS Infusion Department of Oncology in [place], [place] [address] [place] [phone] Bev Gifford APRN, C.N.P., M.S.N. [address] [place] [phone] 11/19/2023 10:00 AM CDT Office Visit Division of Endocrinology in [place], [place] [address] [place] [phone] West Mendoza APRN, C.N.P., M.S. [address] [place] [phone] 11/19/2023 2:30 PM CDT Comprehensive Visit Division of Hepatobiliary and Pancreas Surgery in [place], [place] [address] [place] [phone] Wesley Hamilton M.D. [address] [place] [phone] Scheduled Procedures Name Priority Associated Diagnoses Date/Ti me LAPAROTOMY - ABDOMINAL WASHOUT Ischemia Intestinal With Stricture (HCC) 10/06/2023 9:04 AM CONSULTANT ELECTRONICS documented as of this encounter Visit Diagnoses Not on filedocumented in this encounter Care Teams Customer Operations Intern Relationship Specialty Start Date End Date Elsewhere, Pcp PCP - General Internal Medicine 01/08/22 05/10/23 documented as of this encounter
--- OUTSIDE RECORDS SUMMARY | 2023-10-05 13:06 | XMS_ITS | Encounter Summary ---
Author Name Unknown Organization [facility] Address [address] [place] [address] Care Team Providers Care Chip Bin Conveyor Tender Name Role Phone Elsewhere, Pcp Primary Care Provider Unavailabl e Encounter Details Date Type Department Care Team (Latest Contact Info) Description 05/06/2023 12:40 PM CDT Ancillary Procedure Department of Gastroenterology Social [...] any clubs o r organizations such as scientologist groups, unions, fraternal or athletic groups, or [...] PHQ-2 Score 0 04/25/2020 [facility] [place] of Occupat ional Health - Occupational [...] (Latest Contact Info) Description 10/06/2023 9:04 AM WAFFLE MACHINE OPERATOR - 10/06/2023 11:24 AM WAFFLE MACHINE OPERATOR Surgery [facility] MAIN OR [address] [place] [phone] Cameron aSenz M.D. [address] [place] [phone] ABDOMINAL EXPLORATION, REMOVAL ABTHERA, POSSBLE BOWEL RESECTION, PROCEED INDICATED 10/11/2023 7:00 AM WAFFLE MACHINE OPERATOR Appointment Department of Laboratory Medicine and Pathology, [facility], in [place], [place] [address] [place] [phone] Arti Epstein M.B.B.S. [address] [place] [phone] 10/11/2023 9:00 AM WAFFLE MACHINE OPERATOR Office Visit Division of Hematology in [place], [place] [address] [place] [phone] Arti Epstein M.B.B.S. [address] [place] [phone] 10/11/2023 10:00 AM WAFFLE MACHINE OPERATOR Infusion Department of Oncology in [place], [place] [address] [place] [phone] Bev Gifford APRN, Lola.N.P., M.S.N. [address] [place] [phone] 11/19/2023 10:00 AM CDT Office Visit Division of Endocrinology in [place], [place] [address] [place] [phone] West Mendoza APRN C.N.P., M.S. [address] [place] [phone] 11/19/2023 2:30 PM CDT Comprehensive Visit Division of Hepatobiliary and Pancreas Surgery in [place], [place] [address] [place] [phone] Wesley Hamilton M.D. [address] [place] [phone] Scheduled Procedures Name Priority Associated Diagnoses Date/Ti me LAPAROTOMY - ABDOMINAL WASHOUT Ischemia Intestinal With Stricture (HCC) 10/06/2023 9:04 AM WAFFLE MACHINE OPERATOR documented as of this encounter Procedures Procedure Name Priority Date/Time Associated Diagnosis Comments GASTROENTEROLOGY IMAGE EXAM Routine 05/06/2023 12:40 PM CDT documented in this encounter Results * Upper GI endoscopy-Gastroenterology Image Exam (05/06/2023 12:40 PM CDT) 05/06/2023 12:3 7 PM CDT Narrative IIMS - 05/06/2023 2:48 PM CDT This order has been created and auto-finalized to support the import of images acquired without order. The clinical documentation to support these images can be found on the encounter that produced images. Provider Not In System IMG NON RAD IMAGI NG PROCEDURES IIMS NA documented in this encounter Visit Diagnoses Not on filedocumented in this encounter Care Teams Chip Bin Conveyor Tender Relationship Specialty Start Date End Date Elsewhere, Pcp PCP - General Internal Medicine 01/08/22 05/10/23 documented as of this encounter
--- OUTSIDE RECORDS SUMMARY | 2023-10-05 13:06 | XMS_ITS | Encounter Summary ---
Author Name Unknown Organization [facility] Address [address] [place] [phone] Care Team Providers Care Home Energy Consultant Name Role Phone Elsewhere, Pcp Primary Care Provider Unavailabl e Encounter Details Date Type Department Care Team (Latest Contact Info) Description 04/30/2023 9:33 AM CDT - 04/30/2023 11:59 PM CDT Hospital Encounter Department of Radiology, [place], [place] [address] [place] [phone] Amy Coley M.D. [address] [place] [phone] Discharge Disposition: Home or Self Care Social [...] How often do you attend chur or anglican services? Never 01/10/2023 Do you belong to any clubs o r organizations such as synagogue groups, unions, fraternal or athletic groups, or [...] 0 05/07/2023 06/06/2023 acetaminophen (TYLENOL) 500 mg tabletIndications:mariella n Take 2 tablets (1,000 mg total) by mouth every 6 (six) hours as needed for pain Indications: pain. 0 10/23/2019 05/07/2023 acetaminophen (TYLENOL) 500 mg tablet Administer 1 tablet (500 mg total) via small bowel tube every 6 (six) hours as needed for mild pain or score 1-3 of 10 or moderate pain or score 4-6 of 10. 30 tablet 0 05/07/2023 08/07/2023 allopurinoL (ZYLOPRIM) 300 mg tablet Take 1 tablet by mouth daily. 0 09/27/2020 05/07/2023 allopurinoL (ZYLOPRIM) 300 mg tablet Administer 1 tablet (300 mg total) via small bowel tube daily. 30 tablet 0 05/07/2023 05/23/2023 amitriptyline (ELAVIL) 25 mg tablet Take 12.5 mg by mouth at bedtime as needed (neuropathy). 0 05/07/2023 aspirin 81 mg chewable tablet Administer 1 tablet (81 mg total) via small bowel tube daily. 90 tablet 3 05/07/2023 08/07/2023 empagliflozin (Jardiance) 10 mg tablet Take 1 tablet (10 mg total) by mouth every morning before breakfast. 30 tablet 11 10/04/2022 05/07/2023 empagliflozin (Jardiance) 10 mg tablet Administer 1 [...] (two) times a day. 0 11/03/2013 05/07/2023 lansoprazole (PREVACID) 3 mg/mL suspension Administer 10 mL (30 mg total) via small bowel tube every morning before breakfast. 300 mL 0 05/08/2023 05/23/2023 levothyroxine (SYNTHROID, LEVOTHROID) 112 mcg tablet TAKE 2 TABLETS(224 MCG) BY MOUTH DAILY. EXCEPT ON SUNDAYS, TUESDAYS, AND THURSDAYS TAKE ONLY 1 TABLET 112 MCG. HYPOTHYROIDISM 190 tablet 3 01/09/2023 05/07/2023 levothyroxine (SYNTHROID, LEVOTHROID) 112 mcg tablet Administer 1 tablet (112 mcg total) via small bowel tube every morning before breakfast. TAKE 2 TABLETS(224 MCG) BY MOUTH DAILY. EXCEPT ON SUNDAYS, TUESDAYS, AND THURSDAYS TAKE ONLY 1 TABLET 112 MCG. HYPOTHYROIDISM 190 tablet 3 05/07/2023 08/07/2023 liraglutide (Victoza 2-Umesh) 0.6 mg/0.1 mL (18 [...] mg tabletIndications:Kristan betes Mellitus Type 2 (HCC) Take 1 tablet (1,000 mg total) by mouth daily with dinner. 100 tablet 3 01/15/2023 05/07/2023 metFORMIN (GLUCOPHAGE) 1,000 mg tabletIndications:Kristan betes Mellitus [...] tube daily. 90 tablet 3 05/07/2023 08/07/2023 probenecid-colchicine (COLBENEMID) 500-0.5 mg per tablet TAKE 1 TABLET BY MOUTH TWICE DAILY NEEDED FOR GOUT FLARE 0 10/25/2021 05/07/2023 simvastatin (ZOCOR) 20 mg tablet TAKE 1 TABLET(20 MG) BY MOUTH AT BEDTIME 90 tablet 3 07/18/2022 05/07/2023 simvastatin (ZOCOR) 20 mg tablet Administer 1 tablet (20 mg total) via small bowel tube at bedtime. 90 tablet 3 05/07/2023 08/07/2023 documented as of this encounter Plan of Treatment Upcoming Encounters Date Type Department Care Team (Latest Contact Info) Description 10/06/2023 9:04 AM ACQUISITION ASSOCIATE - 10/06/2023 11:24 AM ACQUISITION ASSOCIATE Surgery [facility] MAIN OR [address] [place] [phone] Cameron Saenz M.D. [address] [place] [phone] ABDOMINAL EXPLORATION, REMOVAL ABTHERA, POSSBLE BOWEL RESECTION, PROCEED INDICATED 10/11/2023 7:00 AM ACQUISITION ASSOCIATE Appointment Department of Laboratory Medicine and Pathology, [facility], in [place], [place] 200 [place] [phone] Arti Epstein M.B.B.S. [address] [place] [phone] 10/11/2023 9:00 AM ACQUISITION ASSOCIATE Office Visit Division of Hematology in [place], [place] [address] [place] [phone] Arti Epstein M.B.B.S. [address] [place] [phone] 10/11/2023 10:00 AM ACQUISITION ASSOCIATE Infusion Department of Oncology in [place], [place] [address] [place] [phone] Bev Gifford APRN, Lola.N.P., M.S.N. [address] [place] [phone] 11/19/2023 10:00 AM CDT Office Visit Division of Endocrinology in [place], [place] [address] [place] [phone] West Mendoza APRN, C.NMark., M.S. [address] [place] [phone] 11/19/2023 2:30 PM CDT Comprehensive Visit Division of Hepatobiliary and Pancreas Surgery in [place], [place] [address] [place] [phone] Wesley Hamilton M.D. [address] [place] [phone] Scheduled Procedures Name Priority Associated Diagnoses Date/Ti me LAPAROTOMY - ABDOMINAL WASHOUT Ischemia Intestinal With Stricture (HCC) 10/06/2023 9:04 AM ACQUISITION ASSOCIATE documented as of this encounter Procedures Procedure Name Priority Date/Time Associated Diagnosis Comments FL FLUORO LESS THAN 1 HOUR RAD - Routine (most inpatients and all outpatients) 04/30/2023 10:57 AM CDT documented in this encounter Results * FL Fluoro Less Than 1 Hour (04/30/2023 10:57 AM CDT) Narrative ERCP LOS RST - 04/30/2023 10:58 AM CDT This exam does not require a radiologist review or interpretation. Please refer to the patient's medical record on this date for clinical details. Amy LOPEZ FLUOROSCOPY PRO CEDURES ERCP LOS RST documented in this encounter Visit Diagnoses Not on filedocumented in this encounter Care Teams Home Energy Consultant Relationship Specialty Start Date End Date Elsewhere, Pcp PCP - General Internal Medicine 01/08/22 05/10/23 documented as of this encounter
--- OUTSIDE RECORDS SUMMARY | 2023-10-05 13:06 | XMS_ITS | Encounter Summary ---
Author Name Unknown Organization [facility] Address [address] [place] [address] Care Team Providers Care Upholstery Mechanic Name Role Phone Elsewhere, Pcp Primary Care Provider Unavailabl e Encounter Details Date Type Department Care Team (Latest Contact Info) Description 04/30/2023 9:20 AM CDT Ancillary Procedure Department of Gastroenterology [...] Answer Date Recorded PHQ-2 Score 0 04/25/2020 [facility] of Occupat ional Health - Occupational Stress [...] (Latest Contact Info) Description 10/06/2023 9:04 AM DOCK HAND - 10/06/2023 11:24 AM DOCK HAND Surgery [facility] MAIN OR [address] [place] [phone] Cameron Saenz M.D. [address] [place] [phone] ABDOMINAL EXPLORATION, REMOVAL ABTHERA, POSSBLE BOWEL RESECTION, PROCEED INDICATED 10/11/2023 7:00 AM DOCK HAND Appointment Department of Laboratory Medicine and Pathology, [facility], in [place], [place] [address] [place] [phone] Arti Epstein M.B.B.S. [address] [place] [phone] 10/11/2023 9:00 AM DOCK HAND Office Visit Division of Hematology in [place], [place] [address] [place] [phone] Arti Epstein M.B.B.S. [address] [place] [phone] 10/11/2023 10:00 AM DOCK HAND Infusion Department of Oncology in [place], [place] [address] [place] [phone] Bev Gifford APRN, Lola.N.P., M.S.N. [address] [place] [phone] 11/19/2023 10:00 AM CDT Office Visit Division of Endocrinology in [place], [place] [address] [place] [phone] West Mendoza APRN C.N.P., M.S. [address] [place] [phone] 11/19/2023 2:30 PM CDT Comprehensive Visit Division of Hepatobiliary and Pancreas Surgery in [place], [place] [address] [place] [phone] Wesley Hamilton M.D. [address] [place] [phone] Scheduled Procedures Name Priority Associated Diagnoses Date/Ti me LAPAROTOMY - ABDOMINAL WASHOUT Ischemia Intestinal With Stricture (HCC) 10/06/2023 9:04 AM DOCK HAND documented as of this encounter Procedures Procedure Name Priority Date/Time Associated Diagnosis Comments GASTROENTEROLOGY IMAGE EXAM Routine 04/30/2023 9:20 AM CDT documented in this encounter Results * Small bowel enteroscopy-Gastroenterology Image Exam (04/30/2023 9:20 AM CDT) 04/30/2023 9:17 AM CDT Narrative IIMS - 04/30/2023 11:19 AM CDT This order has been created and auto-finalized to support the import of images acquired without order. The clinical documentation to support these images can be found on the encounter that produced images. Provider Not In System IMG NON RAD IMAGI NG PROCEDURES IIMS NA documented in this encounter Visit Diagnoses Not on filedocumented in this encounter Care Teams Upholstery Mechanic Relationship Specialty Start Date End Date Elsewhere, Pcp PCP - General Internal Medicine 01/08/22 05/10/23 documented as of this encounter
--- OUTSIDE RECORDS SUMMARY | 2023-10-05 13:06 | XMS_ITS | Encounter Summary ---
Author Name Unknown Organization [facility] Address [address] [place] [address] Care Team Providers Care Malter Operator Name Role Phone Elsewhere, Pcp Primary Care Provider Unavailabl e Encounter Details Date Type Department Care Team (Latest Contact Info) Description 05/06/2023 11:43 AM CDT - 05/06/2023 11:59 PM CDT Hospital Encounter Department of Radiology, [place], [place] [address] [place] [phone] Emmett Santos M.D. [address] [place] [phone] Discharge Disposition: Home or Self Care Social [...] (Latest Contact Info) Description 10/06/2023 9:04 AM ORACLE FINANCIAL APPLICATION DEVELOPER - 10/06/2023 11:24 AM ORACLE FINANCIAL APPLICATION DEVELOPER Surgery [facility] MAIN OR [address] [place] [phone] Cameron Saenz M.D. [address] [place] [phone] ABDOMINAL EXPLORATION, REMOVAL ABTHERA, POSSBLE BOWEL RESECTION, PROCEED INDICATED 10/11/2023 7:00 AM ORACLE FINANCIAL APPLICATION DEVELOPER Appointment Department of Laboratory Medicine and Pathology, [facility], in [place], [place] 200 [place] [phone] Arti pEstein M.B.B.S. [address] [place] [phone] 10/11/2023 9:00 AM ORACLE FINANCIAL APPLICATION DEVELOPER Office Visit Division of Hematology in [place], [place] [address] [place] [phone] Arti Epstein M.B.B.S. [address] [place] [phone] 10/11/2023 10:00 AM ORACLE FINANCIAL APPLICATION DEVELOPER Infusion Department of Oncology in [place], [place] [address] [place] [phone] Bev Gifford APRN, Lola.N.P., M.S.N. [address] [place] [phone] 11/19/2023 10:00 AM CDT Office Visit Division of Endocrinology in [address] [phone] West Mendoza APRN, C.NMark., M.S. [address] [place] [phone] 11/19/2023 2:30 PM CDT Comprehensive Visit Division of Hepatobiliary and Pancreas Surgery in [address] [phone] Wesley Hamilton M.D. [address] [place] [phone] Scheduled Procedures Name Priority Associated Diagnoses Date/Ti me LAPAROTOMY - ABDOMINAL WASHOUT Ischemia Intestinal With Stricture (HCC) 10/06/2023 9:04 AM ORACLE FINANCIAL APPLICATION DEVELOPER documented as of this encounter Procedures Procedure Name Priority Date/Time Associated Diagnosis Comments FL FLUORO LESS THAN 1 HOUR RAD - Routine (most inpatients and all outpatients) 05/06/2023 1:42 PM CDT documented in this encounter Results * [place] Fluoro Less Than 1 Hour (05/06/2023 1:42 PM CDT) Narrative ERCP LOS RST - 05/06/2023 1:44 PM CDT This exam does not require a radiologist review or interpretation. Please refer to the patient's medical record on this date for clinical details. Emmett Santos M.D. IMG FLUOROSCOPY PROC EDURES ERCP LOS RST documented in this encounter Visit Diagnoses Not on filedocumented in this encounter Care Teams Malter Operator Relationship Specialty Start Date End Date Elsewhere, Pcp PCP - General Internal Medicine 01/08/22 05/10/23 documented as of this encounter
--- OUTSIDE RECORDS SUMMARY | 2023-10-05 13:06 | XMS_ITS | Encounter Summary ---
Author Name Unknown Organization [facility] Address [address] [place] [address] Care Team Providers Care Housekeeping Assistant Name Role Phone Elsewhere, Pcp Primary Care Provider Unavailabl e Encounter Details Date Type Department Care Team (Latest Contact Info) Description 05/06/2023 1:08 PM CDT Anesthesia Event Division of Gastroenterology in [place], [place] [address] [place] [phone] Juana Sahu APRN, COMMERCIAL ENERGY AUDITOR [address] [place] [phone] Anesthesia Record Procedure Summary Procedure Name Responsible Anesthesiologist Anesthesia Start Time Anesthesia Stop Time EGD (ESOPHAGEALGASTRODU ODENOSCOPY) Juana Sahu APRN, SAL 05/06/23 1308 05/06/23 1356 Events Date Time Event Comment 05/06/2023 1308 An Start Machine/Equipme nt Checked Infection Precautions Followed Procedure/Site Verified NPO Status Verified Supine Standard ASA Monitors Applied 1309 An Induction 1311 An Intubation 1312 Turnover to Proceduralist 1314 Proc Start 1335 Proc Fin 1339 Turnover to ANE Staff 1346 Airway Removal Criteria Met 1346 Extubation/Airway Removed 1348 an stop data 1356 An End I completed my handoff to the receiving staff during which we 1. Identified the patient 2. Identified the responsible provider 3. Reviewed the pertinent medical history 4. Discussed the surgical course 5. Reviewed intra-op anesthesia management and issues during anesthesia 6. Set expectations for post-procedure period 7. Allowed opportunity for questions and acknowledgement of understanding. Meds Name Total lidocaine 2% (mg) injection 60 mg succinylcholine 20 mg/mL injection 100 m g ondansetron 4 mg/2 mL injection 4 mg propofol 10 mg/mL infusion 311.4 mg propofol 10 mg/mL injection 200 mg Lactated Ringers Free Drip 300 mL * Agents No agents on file. * Blood No blood administrations on file. Lines, Drains, and Airways Type Details Placement Removal Closed/Suction Drain 10/23/19; 1020; 1; Posterior; Back; Accordion; 10 Fr. 10/23/19 1020 by Ayla Ward, R.NJohanna 05/07/23 1902 by Delfina Wayne, R.NJohanna Peripheral IV Placement Date: 04/10 03/31; Placement Time: 2340; Catheter Size: 20 G; Orientation: Anterior, Distal, Left, Lower; Location: Forearm; Site Prep: Chlorhexidine (Preferred); Technique: Anatomical landmarks; Inserted by: joceline; Insertion Attempts: 1; Removal Date: 05/07/23; Removal Time: 1322 05/05/23 2340 by Lorena Cardozo 05/07/23 1322 by Jaimee Palacios, R.NJohanna ETT Placement Date: 04/10 05/01; Placement Time: 1311 (created via procedure documentation); Mask Ventilation: Not attempted; Technique: Video laryngoscopy; Type: Standard ETT; Single Lumen Tube Size: 7.5 mm; Cuffed: Yes; Location: Oral; Grade View: Grade 1; Insertion Attempts: 1; Placement Verification: Bilateral breath sounds, Positive ETCO2, Symmetrical chest wall movement; Removal Date: 05/06/23; Removal Time: 1346 05/06/23 1311 by Vicente Hamilton CONDUCTOR PULLMAN, COMMERCIAL ENERGY AUDITOR, MNA 05/06/23 1346 by Juana Sahu APRN, COMMERCIAL ENERGY AUDITOR NG/OG Tube 05/06/23; 1335; Nasojejunal; 12 Fr; 140 cm; Nare, Right; 05/14/23; 0854 05/06/23 1335 by Patsy Colón, RDanuta 05/14/23 0854 by Lamar Clemens, R.N. documented in this encounter Social History [...] Answer Date Recorded PHQ-2 Score 0 04/25/2020 [facility] - Occupational Stress Questionnaire Answer Date [...] OR Notes * Anesthesia Postprocedure Evaluation - Juana Sahu APRN, CRNA - 05/06/2023 1:56 PM CDT Patient: Hola Lau Procedure Summary Date: 05/06/23 Room / Location: Division of Gastroenterology in [place], [place] Anesthesia Start: 1308 Anesthesia Stop: 1356 Procedure: EGD (ESOPHAGEALGASTRODUODENOSCOPY) Diagnosis: Scheduled Providers: Juana Sahu APRN, CRNA Responsible Provider: Juana Sahu APRN, CRNA Anesthesia Type: general ASA Status: 3 Anesthesia Type: general Last vitals Vitals Value Taken Time BP 118/68 05/06/23 1355 Temp 36.4 ??C 05/06/23 1352 Pulse 82 05/06/23 1356 Resp 26 05/06/23 1356 SpO2 97 % 05/06/23 1356 Vitals shown include unvalidated device data. Please [...] status: euvolemic * Anesthesia Procedure Notes - Vicente Hamilton APRN, CRNA, MNA - 05/06/2023 1:22 PM CDTAssociated Order(s): Airway Airway Date/Time: 05/06/2023 1:11 PM Performed by: Vicente Hamilton APRN, CRNA, MNA Authorized by: Vicente Hamilton APRN, CRNA, MNA Patient location during procedure: OR / Procedure Area PROCEDURE DETAILS: Mask difficulty assessment: not attempted Final airway type: video laryngoscope Laryngeal Manipulation: no Final best view of glottic structures - Cormack/Lehane Score: grade 1 ETT location: oral Tube size: 7.5 ETT distance at teeth/gum: [...] no complications * Anesthesia Preprocedure Evaluation - Juana Sahu APRN, CRNA - 05/06/2023 1:17 PM CDT Preprocedure Anesthesia & H&P Assessment Procedure Summary Anesthesia Start Date/Time: 05/06/23 1308 Scheduled providers: Juana Sahu APRN, CRNA Procedure: EGD (ESOPHAGEALGASTRODUODENOSCOPY) Location: Division of Gastroenterology in [place], [place] Pertinent components of the patient's history [...] appearing and calm Neurological Neurologic Assessment: alert and alert and oriented x 3 Dental Dental Assessment: dentition intact ASSESSMENT / PLAN ANESTHESIA PLAN ASA: 3 Anesthesia Plan: general Patient seen and allergies reviewed, anesthesia plan and risks discussed directly with patient /legal guardian or through an lab manager. Risks/Benefits/Alternatives of Blood transfusion discussed with patient [...] (Latest Contact Info) Description 10/06/2023 9:04 AM MEDICAL SUPERINTENDENT - 10/06/2023 11:24 AM MEDICAL SUPERINTENDENT Surgery [facility] MAIN OR [address] [place] [phone] Cameron Saenz M.D. [address] [place] [phone] ABDOMINAL EXPLORATION, REMOVAL ABTHERA, POSSBLE BOWEL RESECTION, PROCEED INDICATED 10/11/2023 7:00 AM MEDICAL SUPERINTENDENT Appointment Department of Laboratory Medicine and Pathology, [facility], in [place], [place] [address] [place] [phone] Arti Epstein M.B.B.S. [address] [place] [phone] 10/11/2023 9:00 AM MEDICAL SUPERINTENDENT Office Visit Division of Hematology in [place], [place] [address] [place] [phone] Arti Epstein M.B.B.S. [address] [place] [phone] 10/11/2023 10:00 AM MEDICAL SUPERINTENDENT Infusion Department of Oncology in [address] [phone] Bev Gifford APRN, C.N.P., M.S.N. [address] [place] [phone] 11/19/2023 10:00 AM CDT Office Visit Division of Endocrinology in [place], [place] [address] [place] [phone] West Mendoza APRN, C.NMark., M.S. [address] [place] [phone] 11/19/2023 2:30 PM CDT Comprehensive Visit Division of Hepatobiliary and Pancreas Surgery in [place], [place] [address] [place] [phone] Wesley Hamilton M.D. [address] [place] [phone] Scheduled Procedures Name Priority Associated Diagnoses Date/Ti me LAPAROTOMY - ABDOMINAL WASHOUT Ischemia Intestinal With Stricture (HCC) 10/06/2023 9:04 AM MEDICAL SUPERINTENDENT documented as of this encounter Procedures Procedure Name Priority Date/Time Associated Diagnosis Comments LDA ANE ENDOTRACHEAL AIRWAY Routine 05/06/2023 1:11 PM CDT documented in this encounter Results * LDA ANE ENDOTRACHEAL AIRWAY (05/06/2023 1:11 PM CDT) Narrative Vicente Hamilton APRN, CRNA, MNA - 05/06/2023 1:11 PM CDT Vicente Hamilton APRN, CRNA, MNA ? 05/06/2023 ??1:24 PM Airway Date/Time: 05/06/2023 1:11 PM Performed by: Vicente Hamilton APRN, CRNA, MNA Authorized by: Vicente Hamilton APRN, CRNA, MNA ?? Patient location during procedure: OR / Procedure Area PROCEDURE DETAILS: Mask difficulty assessment: not attempted Final airway type: video laryngoscope Laryngeal Manipulation: no ?? Final best view of glottic structures - Cormack/Lehane Score: grade 1 ETT location: oral Tube size: 7.5 ETT distance at teeth/gum: [...] outcome: successful ?? Airway event: no complications Vicente Hamilton CONDUCTOR PULLMAN, COMMERCIAL ENERGY AUDITOR, MNA ANESTH ESIA ORDERABLES documented in this encounter Visit Diagnoses Not on filedocumented in this encounter Administered Medications Inactive Administered Medications - up to 3 most recent administrations Medication Order MAR Action Action Date Dose Rate Site Lactated Ringer's intravenous, Continuous Infusion: Per Instructions PRN, Starting on Sat05/06/23 at 1309, Anesthesia Intra-op New Bag 05/06/2023 1:09 PM CDT lidocaine (PF) (cardiac) injection intravenous, As needed, Starting on Sat05/06/23 at 1310, Anesthesia Intra-op Given 05/06/2023 1:10 PM CDT 60 mg ondansetron (PF) injection (ZOFRAN) intravenous, As needed, Starting on Sat05/06/23 at 1321, Anesthesia Intra-op Given 05/06/2023 1:21 PM CDT 4 mg propofol 10 mg/mL infusion (DIPRIVAN) intravenous, Continuous Infusion: Per Instructions PRN, Starting on Sat05/06/23 at 1310, Anesthesia Intra-op New Bag 05/06/2023 1:10 PM CDT 150 mcg/kg/min 77.85 mL/hr propofoL injection (DIPRIVAN) intravenous, As needed, Starting on Sat05/06/23 at 1309, Anesthesia Intra-op Given 05/06/2023 1:09 PM CDT 200 mg succinylcholine (PF) injection (ANECTINE) intravenous, As needed, Starting on Sat05/06/23 at 1310, Anesthesia Intra-op Given 05/06/2023 1:10 PM CDT 100 mg documented in this encounter Care Teams Housekeeping Assistant Relationship Specialty Start Date End Date Elsewhere, Pcp PCP - General Internal Medicine 01/08/22 05/10/23 documented as of this encounter
--- OUTSIDE RECORDS SUMMARY | 2023-10-05 13:07 | XMS_ITS | Encounter Summary ---
Author Name Unknown Organization [facility] Address [address] [place] [address] Care Team Providers Care Attending Urologist Name Role Phone Elsewhere, Pcp Primary Care Provider Unavailabl e Reason for Visit * Reason Comments Med Refill Encounter Details Date Type Department Care Team ([facility] st Contact Info) Description 01/08/2023 Refill Division of Endocrinology in [place], [place] [address] [place] [phone] Gentry Ortiz, RYLEE, C.N.P., D.N.P. [address] [place] [phone] Med Refill Social History Tobacco Use Types [...] often do you attend chur ch or latter day services? Never 01/10/2023 Do you belong to any clubs o r organizations such as gnosticism groups, unions, fraternal or athletic groups, or [...] Date Recorded PHQ-2 Score 0 04/25/2020 [facility] - Occupational [...] (Latest Contact Info) Description 10/06/2023 9:04 AM EMAIL ADMINISTRATOR - 10/06/2023 11:24 AM EMAIL ADMINISTRATOR Surgery [facility] MAIN OR [address] [place] [phone] Cameron Saenz M.D. [address] [place] [phone] ABDOMINAL EXPLORATION, REMOVAL ABTHERA, POSSBLE BOWEL RESECTION, PROCEED INDICATED 10/11/2023 7:00 AM EMAIL ADMINISTRATOR Appointment Department of Laboratory Medicine and Pathology, [facility], in [place], [place] [address] [place] [phone] Arti Epstein M.B.B.S. [address] [place] [phone] 10/11/2023 9:00 AM EMAIL ADMINISTRATOR Office Visit Division of Hematology in [place], [place] [address] [place] [phone] Arti Epstein M.B.B.S. [address] [place] [phone] 10/11/2023 10:00 AM EMAIL ADMINISTRATOR Infusion Department of Oncology in [place], [place] [address] [place] [phone] Bev Gifford APRN, C.N.P., M.S.N. [address] [place] [phone] 11/19/2023 10:00 AM CDT Office Visit Division of Endocrinology in [place], [place] [address] [place] [phone] West Mendoza APRN, C.N.P., M.S. [address] [place] [phone] 11/19/2023 2:30 PM CDT Comprehensive Visit Division of Hepatobiliary and Pancreas Surgery in [place], [place] [address] [place] [phone] Wesley Hamilton M.D. [address] [place] [phone] Scheduled Procedures Name Priority Associated Diagnoses Date/Ti me LAPAROTOMY - ABDOMINAL WASHOUT Ischemia Intestinal With Stricture (HCC) 10/06/2023 9:04 AM EMAIL ADMINISTRATOR documented as of this encounter Visit Diagnoses Not on filedocumented in this encounter Care Teams Attending Urologist Relationship Specialty Start Date End Date Elsewhere, Pcp PCP - General Internal Medicine 01/08/22 05/10/23 documented as of this encounter
--- OUTSIDE RECORDS SUMMARY | 2023-10-05 13:07 | XMS_ITS | Encounter Summary ---
Author Name Unknown Organization [facility] Address [address] [place] [address] Care Team Providers Care Civil Cadd Technician Name Role Phone Elsewhere, Pcp Primary Care Provider Unavailabl e Encounter Details Date Type Department Care Team (Latest Contact Info) Description 01/15/2023 6:38 AM CDT - 01/15/2023 11:59 PM CDT Hospital Encounter Department of Laboratory Medicine and Pathology, [facility] in [place], [place] [address] [place] [phone] Rosemarie Dutton, RYLEE, C.N.P., M.S. [address] [place] [phone] Diabetes Mellitus Type 2 With Diabetic Neuropathy [...] any clubs o r organizations such as yarsanism groups, unions, fraternal or athletic groups, or [...] Answer Date Recorded PHQ-2 Score 0 04/25/2020 [facility] - Occupational Stress [...] (Latest Contact Info) Description 10/06/2023 9:04 AM HEALTH INFORMATION INTERNSHIP - 10/06/2023 11:24 AM HEALTH INFORMATION INTERNSHIP Surgery [facility] MAIN OR [address] [place] [phone] Cameron Saenz M.D. [address] [place] [phone] ABDOMINAL EXPLORATION, REMOVAL ABTHERA, POSSBLE BOWEL RESECTION, PROCEED INDICATED 10/11/2023 7:00 AM HEALTH INFORMATION INTERNSHIP Appointment Department of Laboratory Medicine and Pathology, [facility], in [place], [place] [address] [place] [phone] Arti Epstein M.B.B.S. [address] [place] [phone] 10/11/2023 9:00 AM HEALTH INFORMATION INTERNSHIP Office Visit Division of Hematology in [place], [place] [address] [place] [phone] Arti Epstein M.B.B.S. [address] [place] [phone] 10/11/2023 10:00 AM HEALTH INFORMATION INTERNSHIP Infusion Department of Oncology in [place], [place] [address] [place] [phone] Bev Gifford APRN, C.N.P., M.S.N. [address] [place] [phone] 11/19/2023 10:00 AM CDT Office Visit Division of Endocrinology in [place], [place] [address] [place] [phone] West Mendoza APRN, C.N.P., M.S. [address] [place] [phone] 11/19/2023 2:30 PM CDT Comprehensive Visit Division of Hepatobiliary and Pancreas Surgery in [place], [place] [address] [place] [phone] Wesley Hamilton M.D. [address] [place] [phone] Scheduled Procedures Name Priority Associated Diagnoses Date/Ti me LAPAROTOMY - ABDOMINAL WASHOUT Ischemia Intestinal With Stricture (HCC) 10/06/2023 9:04 AM HEALTH INFORMATION INTERNSHIP documented as of this encounter Procedures Procedure Name Priority Date/Time Associated Diagnosis Comments ALBUMIN, RANDOM, U Routine 01/15/2023 6: 59 AM CDT Diabetes Mellitus Type 2 With Diabetic Neuropathy (HCC) documented in this encounter Results * (ABNORMAL) Albumin, Random, Urine (01/15/2023 6:59 AM CDT) Albumin, Random, U 99.6 mg/L 2022 9:08 AM CDT DTL Comment: ----ADDITIONAL INFORMATION---- This test has been modified from the manufacturing mechanic's instructions. Its performance characteristics were determined by [facility] in a manner consistent with CLIA requirements. This test has not been cleared or approved by the U.S. Food and Drug Administration. Creatinine 102 mg/dL 01/15/2023 8:31 AM CDT DTL Albumin/Creatinine Ratio 98(H) <17 mg/g 01/15/2023 9:08 AM CDT DTL Urine (Urine, Midstream) 01/15/2023 6:59 AM CDT 01/15/2023 8:01 AM CDT Rosemarie Dutton APRN, C.N.P., M.S. LAB URI NE ORDERABLES [facility] [address] [place] [address], [facility] [address] [place] [address] documented in this encounter Visit Diagnoses Diagnosis Diabetes Mellitus Type 2 With Diabetic Neuropathy (HCC) Ischemia Intestinal With Stricture (HCC) documented in this encounter Care Teams Civil Cadd Technician Relationship Specialty Start Date End Date Elsewhere, Pcp PCP - General Internal Medicine 01/08/22 05/10/23 documented as of this encounter
--- OUTSIDE RECORDS SUMMARY | 2023-10-05 13:07 | XMS_ITS | Encounter Summary ---
Author Name Unknown Organization [facility] Address [address] [place] [address] Care Team Providers Care [employer] Guidance Counselor Name Role Phone Elsewhere, Pcp Primary Care Provider Unavailabl e Reason for Visit * Reason Onset Date Comments Pre-visit Intake 01/10/2023 Encounter Details Date Type Department Care Team (Latest Contact Info) Description 01/10/2023 9:30 AM CDT Clinical Communication Virtual Review in [place], [place] 200 [place], [place] [phone] Pre-visit Intake Social History Tobacco Use Types Packs/Day Years Used Date Smoking Tobacco: Former Cigarettes 09 30 Q uit: 02/07/1989 Smokeless Tobacco: Current Snuff Tobacco Cessation:Ready to Q uit: Not Asked; Counseling Given: Not Answered Alcohol Use Standard Drinks/Week Comments Yes 2 [...] 0 04/25/2020 [facility] - Occupational Stress Questionnaire Answer Date [...] (Latest Contact Info) Description 10/06/2023 9:04 AM EAR MOLD LABORATORY TECHNICIAN - 10/06/2023 11:24 AM EAR MOLD LABORATORY TECHNICIAN Surgery [facility] MAIN OR [address] [place] [phone] Cameron Saenz M.D. [address] [place] [phone] ABDOMINAL EXPLORATION, REMOVAL ABTHERA, POSSBLE BOWEL RESECTION, PROCEED INDICATED 10/11/2023 7:00 AM EAR MOLD LABORATORY TECHNICIAN Appointment Department of Laboratory Medicine and Pathology, [facility], in [place], [place] [address] [place] [phone] Arti Epstein M.B.B.S. [address] [place] [phone] 10/11/2023 9:00 AM EAR MOLD LABORATORY TECHNICIAN Office Visit Division of Hematology in [place], [place] [address] [place] [phone] Arti Epstein M.B.B.S. [address] [place] [phone] 10/11/2023 10:00 AM EAR MOLD LABORATORY TECHNICIAN Infusion Department of Oncology in [address] [phone] Bev Gifford APRN, C.N.P., M.S.N. [address] [place] [phone] 11/19/2023 10:00 AM CDT Office Visit Division of Endocrinology in [address] [phone] West Mendoza APRN, C.N.P., M.S. [address] [place] [phone] 11/19/2023 2:30 PM CDT Comprehensive Visit Division of Hepatobiliary and Pancreas Surgery in [address] [phone] Wesley Hamilton M.D. [address] [place] [phone] Scheduled Procedures Name Priority Associated Diagnoses Date/Ti me LAPAROTOMY - ABDOMINAL WASHOUT Ischemia Intestinal With Stricture (HCC) 10/06/2023 9:04 AM EAR MOLD LABORATORY TECHNICIAN documented as of this encounter Visit Diagnoses Not on filedocumented in this encounter Care Teams [employer] Guidance Counselor Relationship Specialty Start Date End Date Elsewhere, Pcp PCP - General Internal Medicine 01/08/22 05/10/23 documented as of this encounter
== END 2023-10-04 06:53 | disposition home or self-care (01) ==
LOC: AMB 10-05 12:43
PROVIDERS: PCP Internal Medicine; Visit Provider Family Medicine
DX: R10.9 Unspecified abdominal pain (principal)
CPT/HCPCS: A0425; A0429